=== PATIENT | male | born 1965 | race Hispanic/Latino ===

== ENCOUNTER 2017-01-01 18:35 | Inpatient (IN) | payer BC ==
[2017-01-01 20:01] LABS: Basophils % (Auto) 0.5 % (0.0-1.8); Eosinophils % (Auto) 0.3 % (0.0-4.3); Hematocrit 46.8 % (35.5-45.6); Hemoglobin 15.6 gm/dl (11.8-15.2); Mean Corpuscular HGB Conc 33 % (32-34); Mean Corpuscular Hemoglobin 30 pg (28-32); Mean Corpuscular Volume 91 fl (84-94); Platelet Count 231 K/mm3 (140-440); Red Blood Count 5.12 M/mm3 (3.65-5.03); Red Cell Distribution Width 13.2 % (13.2-15.2); White Blood Count 13.2 K/mm3 (4.5-11.0)
[2017-01-01] MEDS ORDERED: DUONEB 0.5 MG-3 MG/3 ML SOLN IH ONE (20:02)
[2017-01-01] MEDS ORDERED: PROVENTIL IH ONE ×2 (20:02→21:14)
--- NOTE | 2017-01-01 20:09 | XRay Report ---
FINAL REPORT PROCEDURE: XR CHEST ROUTINE 2V TECHNIQUE: PA and lateral chest radiographs were obtained. CPT 53546 HISTORY: shortness of breath COMPARISON: No prior studies are available for comparison. FINDINGS: Heart: Normal contour. Mediastinum/Vessels: Normal contour. Lungs/Pleural space: No infiltrate, effusion, or pneumothorax. Bony thorax: No acute osseous abnormality. Other: IMPRESSION: No pulmonary infiltrates are identified.
[2017-01-01 20:12] LABS: ISTAT Base Excess 0; ISTAT DEVICE 0; ISTAT HCO3 23.5; ISTAT PCO2 33.2 (35-45); ISTAT PH 7.457 (7.35-7.45); ISTAT PO2 57 (80-105); ISTAT SO2 91; ISTAT TCO2 24
[2017-01-01] MEDS ORDERED: TYLENOL ONE (20:12)
[2017-01-01] MEDS ORDERED: TYLENOL PO ONE (20:14)
[2017-01-01 20:21] LABS: Anion Gap 20 mmol/L; Blood Urea Nitrogen 14 mg/dL (9-20); Calcium 9.4 mg/dL (8.4-10.2); Carbon Dioxide 27 mmol/L (22-30); Glucose 96 mg/dL (75-100); Potassium 4.7 mmol/L (3.6-5.0); Sodium 136 mmol/L (137-145)
[2017-01-01] MEDS ORDERED: ATROVENT IH ONE (21:14)
--- NOTE | 2017-01-01 21:17 | Emergency Department Report ---
ED Shortness of Breath HPI - General Chief Complaint: Dyspnea/Respdistress Stated Complaint: FEVER/COUGH/BODYACHE Time Seen by Provider: 01/01/17 19:50 Source: patient Mode of arrival: Ambulatory Limitations: No Limitations - History of Present Illness Initial Comments: 51-year-old male with past medical history of COPD (not on home oxygen), hypertension, elevated cholesterol, history of pneumothorax in the past presents to the hospital complains of shortness of breath and fever 2 days. Generalized body aches rated 6/10 in intensity. Patient has cough productive of clear sputum. Tonight symptoms worsen with worsening shortness of breath, chills, and fever. Patient does not use home oxygen but he continues to smoke cigarettes. Patient states he did receive his flu shot. Positive continued wheezing. Denies history of intubations. His primary care doctor is Dr. Bazan - Related Data Home Medications Medication Instructions Recorded Confirmed Last Taken Celexa 0 mg PO DAILY 03/22/16 03/22/16 Unknown Lisinopril 20 mg PO DAILY 03/22/16 03/22/16 03/21/16 20 mg Simvastatin 40 mg PO QHS 03/22/16 03/22/16 03/21/16 40 Previous Rx's Medication Instructions Recorded Last Taken Type RX: Aspirin [Aspirin BABY CHEW TAB] 81 mg PO QDAY #30 tab.chew 03/24/16 Unknown Rx Allergies Allergy/AdvReac Type Severity Reaction Status Date / Time Sulfa (Sulfonamide Allergy Severe Rash Verified 03/22/16 18:34 Antibiotics) oxytetracycline Allergy Unknown Verified 03/22/16 10:32 [From Terramycin] oxytetracycline HCl Allergy Unknown Verified 03/22/16 10:32 [From Terramycin] Penicillins AdvReac Severe Shortness Verified 03/22/16 18:34 of Breath ED Review of Systems ROS: Stated complaint: FEVER/COUGH/BODYACHE Other details as noted in HPI Comment: All other systems reviewed and negative Other: Constitutional: As per HPI Eyes: No eye pain visual changes ENT: No ear pain or throat pain Neck: Denies pain Respiratory: as per hpi Cardiovascular: Denies chest pain, palpitations, syncope GI: Denies abdominal pain, nausea, vomiting, diarrhea : Denies dysuria, urinary frequency, or urgency Musculoskeletal: generalized body ache Skin: Denies rash, lesions, erythema Neurologic: Denies headache, numbness, weakness Psychiatric: Denies suicidal ideation, hallucinations ED Past Medical Hx - Past Medical History Previous Medical History?: Yes Hx Hypertension: Yes Hx Congestive Heart Failure: No Hx Diabetes: No Hx Asthma: No Hx COPD: Yes Additional medical history: high cholestrol, pneumonia - Surgical History Past Surgical History?: Yes Additional Surgical History: ACF surgery. collapsed right lung: chest tube placed - Social History Smoking Status: Current Every Day Smoker Substance Use Type: Alcohol - Medications Home Medications: Home Medications Medication Instructions Recorded Confirmed Last Taken Type Celexa 0 mg PO DAILY 03/22/16 03/22/16 Unknown History Lisinopril 20 mg PO DAILY 03/22/16 03/22/16 03/21/16 History 20 mg Simvastatin 40 mg PO QHS 03/22/16 03/22/16 03/21/16 History 40 RX: Aspirin [Aspirin BABY CHEW TAB] 81 mg PO QDAY #30 tab.chew 03/24/16 Unknown Rx ED Physical Exam - General Limitations: No Limitations - Other Other exam information: General: No limitations, patient is alert in no acute distress Head exam: Atraumatic, normocephalic Eyes exam: Normal appearance ENT: Moist mucous membrane, normal oropharynx Neck exam: Normal inspection, full range of motion Respiratory exam: Expiratory wheeze Cardiovascular: Normal rate and rhythm, normal heart sounds Abdomen: Soft, nondistended, and nontender, with normal bowel sounds, no rebound, or guarding Extremity: Full range of motion normal inspection no deformity Back: Normal Inspection, full range of motion, no tenderness Neurologic: Alert, oriented x3, cranial nerves intact, no motor or sensory deficit Psychiatric: normal affect, normal mood Skin: Warm, dry, intact ED Course Vital Signs 01/01/17 01/01/17 01/01/17 18:54 19:23 19:47 Temperature 101.5 F H 101.4 F H Pulse Rate 108 H 110 H Pulse Rate [ Posterior Bilateral Throughout] Respiratory 22 22 24 Rate Respiratory Rate [Posterior Bilateral Throughout] Blood Pressure 159/77 Blood Pressure 159/77 134/73 [Right] O2 Sat by Pulse 89 94 99 Oximetry 01/01/17 01/01/17 20:06 20:30 Temperature Pulse Rate Pulse Rate [ 113 H 111 H Posterior Bilateral Throughout] Respiratory Rate Respiratory 20 24 Rate [Posterior Bilateral Throughout] Blood Pressure Blood Pressure [Right] O2 Sat by Pulse Oximetry - Reevaluation(s) Reevaluation #1: 01/01/17 21:20 Patient received Tylenol, Solu-Medrol, and Indocin the ED with continued wheezing and hypoxia requiring supplemental oxygen ED Medical Decision Making - Lab Data Result diagrams: 01/01/17 19:52 01/01/17 19:52 Lab Results 01/01/17 01/01/17 01/01/17 Range/Units 19:52 19:52 20:04 WBC 13.2 H (4.5-11.0) K/mm3 RBC 5.12 H (3.65-5.03) M/mm3 Hgb 15.6 H (11.8-15.2) gm/dl Hct 46.8 H (35.5-45.6) % MCV 91 (84-94) fl MCH 30 (28-32) pg MCHC 33 (32-34) % RDW 13.2 (13.2-15.2) % Plt Count 231 (140-440) K/mm3 Lymph % (Auto) 4.0 L (13.4-35.0) % [place] % (Auto) 5.5 (0.0-7.3) % Eos % (Auto) 0.3 (0.0-4.3) % Baso % (Auto) 0.5 (0.0-1.8) % Lymph # 0.5 L (1.2-5.4) K/mm3 [place] # 0.7 (0.0-0.8) K/mm3 Eos # 0.0 (0.0-0.4) K/mm3 Baso # 0.1 (0.0-0.1) K/mm3 Seg Neutrophils % 89.7 H (40.0-70.0) % Seg Neutrophils # 11.9 H (1.8-7.7) K/mm3 POC ABG pH 7.457 H (7.35-7.45) POC ABG pCO2 33.2 L (35-45) POC ABG pO2 57 L (80-105) POC ABG HCO3 23.5 POC ABG Total CO2 24 POC ABG O2 Sat 91 POC ABG Base Excess 0 FiO2 32 % Sodium 136 L (137-145) mmol/L Potassium 4.7 (3.6-5.0) mmol/L Chloride 94.0 L (98-107) mmol/L Carbon Dioxide 27 (22-30) mmol/L Anion Gap 20 mmol/L BUN 14 (9-20) mg/dL Creatinine 1.0 (0.8-1.5) mg/dL Estimated GFR > 60 ml/min BUN/Creatinine Ratio 14.00 % Glucose 96 (75-100) mg/dL Calcium 9.4 (8.4-10.2) mg/dL flu neg - Radiology Data Radiology results: report reviewed (chest x-ray: No acute infiltrate) - Medical Decision Making ABG was performed on 2 L oxygen and shows a PO2 left and 60. Patient continues to have wheezing in the ED. Patient be admitted to the hospital for the treatment of acute bronchitis with fever. Azithromycin ordered - Differential Diagnosis pneumonia, bronchitis, influenza, viral syndrome, COPD Critical Care Time: No Critical care attestation.: If time is entered above; I have spent that time in minutes in the direct care of this critically ill patient, excluding procedure time. ED Disposition Clinical Impression: COPD with acute bronchitis, Hypoxia, Fever Disposition: OP ADMITTED IP TO THIS HOSP Is pt being admited?: Yes Condition: Stable Time of Disposition: 21:17 (Dr Millard/hosp)
[2017-01-01] MEDS ORDERED: ZITHROMAX 500 MG in NACL 0.9% 250ML 250 ML IV ONE (21:29)
[2017-01-01] MEDS ORDERED: MILK OF MAGNESIA PO PRN (21:59)
[2017-01-01] MEDS ORDERED: DULCOLAX PR PRN (21:59)
[2017-01-01] MEDS ORDERED: ZOFRAN IV PRN (21:59)
[2017-01-01] MEDS ORDERED: TYLENOL PO PRN (21:59)
[2017-01-01] MEDS ORDERED: NON-FORMULARY (Simvastatin 40 MG) PO SCH (22:00)
--- NOTE | 2017-01-01 22:08 | History and Physical Report ---
History of Present Illness Date of examination: 01/01/17 History of present illness: 51-year-old man with a history of COPD, on home oxygen, hypertension, hyperlipidemia [facility] with complaints of shortness of breath worsened today, cough productive of thick white phlegm, subjective fever and chills Patient denies chest pain, palpitation, abdominal pain, hematochezia, dysuria, frequency, focal weakness, dysarthria, fever chills, polydipsia polyuria, hot or cold intolerance, easy bruisability, or rash or bleeding from mucosal membrane, rhinorrhea, epistaxis, earache, tinnitus, blurry vision, eye discharge , anxiety, depression. Other review of systems negative PAST SURGICAL HISTORY: Neck surgery SOCIAL HISTORY: Smoked 3 packs a day, doing 3 beers a day, no drugs FAMILY HISTORY: Hypertension Medications and Allergies Allergies Allergy/AdvReac Type Severity Reaction Status Date / Time Sulfa (Sulfonamide Allergy Severe Rash Verified 03/22/16 18:34 Antibiotics) oxytetracycline Allergy Unknown Verified 03/22/16 10:32 [From Terramycin] oxytetracycline HCl Allergy Unknown Verified 03/22/16 10:32 [From Terramycin] Penicillins AdvReac Severe Shortness Verified 03/22/16 18:34 of Breath Home Medications Medication Instructions Recorded Confirmed Last Taken Type Celexa 0 mg PO DAILY 03/22/16 03/22/16 Unknown History Lisinopril 20 mg PO DAILY 03/22/16 03/22/16 03/21/16 History 20 mg Simvastatin 40 mg PO QHS 03/22/16 03/22/16 03/21/16 History 40 Aspirin [Aspirin BABY CHEW TAB] 81 mg PO QDAY #30 tab.chew 03/24/16 Unknown Rx Active Meds: Active Medications Aspirin (Baby Aspirin) 81 mg PO QDAY [facility] Azithromycin 500 mg/ Sodium (Chloride) 250 mls @ 250 mls/hr IV ONCE.ED ONE Stop: 01/01/17 22:28 Last Admin: 01/01/17 21:39 Dose: 250 mls/hr Miscellaneous Medication (Lisinopril) 20 mg PO DAILY VERÓNICA Miscellaneous Medication (Simvastatin) 40 mg PO QHS [facility] Exam - Physical Exam Narrative exam: Gen. appearance: Patient lying in bed, no apparent distress HEENT: Normocephalic, atraumatic, pupils equally round and reactive to light, extraocular movement intact, and no sclericterus,. No JVD or thyromegaly or nodule,neck supple, no carotid bruit ,mucous membranes moist, no exudate or erythema Heart: S1, S2, regular rate and rhythm Lungs: Wheezing bilaterally, breathing comfortable Abdomen: Positive bowel sounds, nontender, nondistended, no organomegaly Extremity: No edema, cyanosis, clubbing Skin: No rash, nodules, warm, dry Neuro: Oriented 3, cranial nerves II-12 intact, speech is fluent, motor and sensory intact - Constitutional Vitals: Temp Pulse Resp BP Pulse Ox 101.4 F H 106 H 20 116/55 88 01/01/17 19:23 01/01/17 21:30 01/01/17 21:30 01/01/17 21:30 01/01/17 21:30 Results - Labs CBC & Chem 7: 01/01/17 19:52 01/01/17 19:52 Labs: Abnormal lab results 01/01/17 01/01/17 01/01/17 Range/Units 19:52 19:52 20:04 WBC 13.2 H (4.5-11.0) K/mm3 RBC 5.12 H (3.65-5.03) M/mm3 Hgb 15.6 H (11.8-15.2) gm/dl Hct 46.8 H (35.5-45.6) % Lymph % (Auto) 4.0 L (13.4-35.0) % Lymph # 0.5 L (1.2-5.4) K/mm3 Seg Neutrophils % 89.7 H (40.0-70.0) % Seg Neutrophils # 11.9 H (1.8-7.7) K/mm3 POC ABG pH 7.457 H (7.35-7.45) POC ABG pCO2 33.2 L (35-45) POC ABG pO2 57 L (80-105) Sodium 136 L (137-145) mmol/L Chloride 94.0 L (98-107) mmol/L - Imaging and Cardiology EKG: image reviewed Chest x-ray: image reviewed Assessment and Plan COPD exacerbation with bronchitis Hypertension Hyperlipidemia Admits medicine Start high-dose IV steroids, antibiotics and nebulizer treatments Continue outpatient medications, start DVT prophylaxis
[2017-01-01] MEDS: ZOCOR PO SCH (23:35)
[2017-01-02] MEDS: DUONEB 0.5 MG-3 MG/3 ML SOLN IH SCH ×4 (02:55→19:18)
[2017-01-02 04:23] LABS: ISTAT Base Excess 1; ISTAT HCO3 25.6; ISTAT PCO2 41.7 (35-45); ISTAT PH 7.396 (7.35-7.45); ISTAT PO2 48 (80-105); ISTAT SO2 83; ISTAT TCO2 27
[2017-01-02 05:21] LABS: Hematocrit 44.7 % (35.5-45.6); Hemoglobin 14.8 gm/dl (11.8-15.2); Mean Corpuscular HGB Conc 33 % (32-34); Mean Corpuscular Hemoglobin 30 pg (28-32); Mean Corpuscular Volume 91 fl (84-94); Platelet Count 207 K/mm3 (140-440); Red Blood Count 4.92 M/mm3 (3.65-5.03); Red Cell Distribution Width 13.4 % (13.2-15.2); White Blood Count 11.5 K/mm3 (4.5-11.0)
[2017-01-02 05:26] LABS: Anion Gap 23 mmol/L; Blood Urea Nitrogen 15 mg/dL (9-20); Calcium 9.1 mg/dL (8.4-10.2); Carbon Dioxide 23 mmol/L (22-30); Chloride 93.7 mmol/L (98-107); Glucose 162 mg/dL (75-100); Potassium 4.2 mmol/L (3.6-5.0); Sodium 135 mmol/L (137-145)
[2017-01-02 06:55] LABS: Basophils % (Manual) 0 % (0.0-1.8); Blastocytes % (Manual) 0 %; Diff Status Complete; Eosinophils % (Manual) 0 % (0.0-4.3); RBC Morphology Normal
[2017-01-02] MEDS ORDERED: NON-FORMULARY (Lisinopril 20 MG) PO SCH (10:00)
[2017-01-02] MEDS: ZESTRIL PO SCH (10:04)
[2017-01-02] MEDS: LOVENOX SUB-Q SCH (10:05)
[2017-01-02] MEDS: celeXA PO SCH (10:05)
[2017-01-02] MEDS: BABY ASPIRIN PO SCH (10:05)
[2017-01-02] MEDS: LEVAQUIN PO SCH (10:05)
[2017-01-02] MEDS: BROVANA NEBU IH SCH ×2 (11:14→19:18)
[2017-01-02] MEDS: PULMICORT IH SCH ×2 (11:14→19:18)
[2017-01-02] MEDS: PERCOCET 5/325 PO PRN (11:36)
[2017-01-02] MEDS ORDERED: ULTRAM PO PRN (11:59)
[2017-01-02] MEDS: MUCINEX ER PO SCH ×2 (13:39→21:29)
--- NOTE | 2017-01-02 15:19 | Progress Note ---
Assessment and Plan Assessment and plan: 1. Acute on chronic hypoxic respiratory failure due to copd exacerbation- cotn nebulization treatments; cont IV steroids; add brovana and pulmicort; consult pulmonology; cont levaquin 2. Sepsis POA due to acute bronchitis- cotn levaquin; f/u blood c/s; wbc decreasing but may increase due to steroids; cont mucinex 3. Benign HTN- controlled- cotn meds 4. Dyslipidemia- cont statin 5. DVT prophylaxis-lovenox History Interval history: f/u copd; bronchtis Patient seen at the bedside; still having sob and wheezing but improving Hospitalist Physical - Constitutional Vitals: Temp Pulse Resp BP Pulse Ox 98.0 F 97 H 20 122/60 94 01/02/17 07:30 01/02/17 13:40 01/02/17 13:40 01/02/17 07:30 01/02/17 07:37 General appearance: Present: mild distress (on CN oxygen), well-nourished - EENT Eyes: Present: PERRL, EOM intact. Absent: scleral icterus, conjunctival injection ENT: hearing intact, clear oral mucosa, no oropharyngeal erythema, no poor dentition - Neck Neck: Present: supple, normal ROM. Absent: enlarged thyroid, masses or JVD - Respiratory Respiratory effort: normal Respiratory: bilateral: diminished, wheezing, negative: rales, rhonchi - Cardiovascular Rhythm: regular Heart Sounds: Present: S1 & S2. Absent: gallop - Extremities Extremities: no ischemia, pulses intact, pulses symmetrical, No edema Peripheral Pulses: within normal limits - Abdominal General gastrointestinal: soft, non-tender, non-distended, normal bowel sounds - Integumentary Integumentary: Present: clear - Psychiatric Psychiatric: appropriate mood/affect, cooperative - Neurologic Neurologic: CNII-XII intact, moves all extremities Results - Labs CBC & Chem 7: 01/02/17 04:25 01/02/17 04:25 Labs: Laboratory Last Values WBC 11.5 K/mm3 (4.5-11.0) H 01/02/17 04:25 RBC 4.92 M/mm3 (3.65-5.03) 01/02/17 04:25 Hgb 14.8 gm/dl (11.8-15.2) 01/02/17 04:25 Hct 44.7 % (35.5-45.6) 01/02/17 04:25 MCV 91 fl (84-94) 01/02/17 04:25 MCH 30 pg (28-32) 01/02/17 04:25 MCHC 33 % (32-34) 01/02/17 04:25 RDW 13.4 % (13.2-15.2) 01/02/17 04:25 Plt Count 207 K/mm3 (140-440) 01/02/17 04:25 Lymph % (Auto) 4.0 % (13.4-35.0) L 01/01/17 19:52 [place] % (Auto) 5.5 % (0.0-7.3) 01/01/17 19:52 Eos % (Auto) 0.3 % (0.0-4.3) 01/01/17 19:52 Baso % (Auto) 0.5 % (0.0-1.8) 01/01/17 19:52 Lymph # 0.5 K/mm3 (1.2-5.4) L 01/01/17 19:52 [place] # 0.7 K/mm3 (0.0-0.8) 01/01/17 19:52 Eos # 0.0 K/mm3 (0.0-0.4) 01/01/17 19:52 Baso # 0.1 K/mm3 (0.0-0.1) 01/01/17 19:52 Add Manual Diff Complete 01/02/17 04:25 Total Counted 100 01/02/17 04:25 Seg Neutrophils % [employer] Representative 01/02/17 04:25 Seg Neuts % (Manual) 94.0 % (40.0-70.0) H 01/02/17 04:25 Band Neutrophils % 0 % 01/02/17 04:25 Lymphocytes % (Manual) 5.0 % (13.4-35.0) L 01/02/17 04:25 Reactive Lymphs % (Man) 0 % 01/02/17 04:25 Monocytes % (Manual) 1.0 % (0.0-7.3) 01/02/17 04:25 Eosinophils % (Manual) 0 % (0.0-4.3) 01/02/17 04:25 Basophils % (Manual) 0 % (0.0-1.8) 01/02/17 04:25 Metamyelocytes % 0 % 01/02/17 04:25 Myelocytes % 0 % 01/02/17 04:25 Promyelocytes % 0 % 01/02/17 04:25 Blast Cells % 0 % 01/02/17 04:25 Nucleated RBC % Not Reportable 01/02/17 04:25 Seg Neutrophils # 11.9 K/mm3 (1.8-7.7) H 01/01/17 19:52 Seg Neutrophils # Man 10.8 K/mm3 (1.8-7.7) H 01/02/17 04:25 Band Neutrophils # 0.0 K/mm3 01/02/17 04:25 Lymphocytes # (Manual) 0.6 K/mm3 (1.2-5.4) L 01/02/17 04:25 Abs React Lymphs (Man) 0.0 K/mm3 01/02/17 04:25 Monocytes # (Manual) 0.1 K/mm3 (0.0-0.8) 01/02/17 04:25 Eosinophils # (Manual) 0.0 K/mm3 (0.0-0.4) 01/02/17 04:25 Basophils # (Manual) 0.0 K/mm3 (0.0-0.1) 01/02/17 04:25 Metamyelocytes # 0.0 K/mm3 01/02/17 04:25 Myelocytes # 0.0 K/mm3 01/02/17 04:25 Promyelocytes # 0.0 K/mm3 01/02/17 04:25 Blast Cells # 0.0 K/mm3 01/02/17 04:25 WBC Morphology Not Reportable 01/02/17 04:25 Hypersegmented Neuts Not Reportable 01/02/17 04:25 Hyposegmented Neuts Not Reportable 01/02/17 04:25 Hypogranular Neuts Not Reportable 01/02/17 04:25 Smudge Cells Not Reportable 01/02/17 04:25 Toxic Granulation Not Reportable 01/02/17 04:25 Toxic Vacuolation Not Reportable 01/02/17 04:25 Dohle Bodies Not Reportable 01/02/17 04:25 Pelger-Huet Anomaly Not Reportable 01/02/17 04:25 Andres Rods Not Reportable 01/02/17 04:25 Platelet Estimate Appears normal 01/02/17 04:25 Clumped Platelets Not Reportable 01/02/17 04:25 Plt Clumps, EDTA Not Reportable 01/02/17 04:25 Large Platelets Not Reportable 01/02/17 04:25 Giant Platelets Not Reportable 01/02/17 04:25 Platelet Satelliting Not Reportable 01/02/17 04:25 Plt Morphology Comment Not Reportable 01/02/17 04:25 RBC Morphology Normal 01/02/17 04:25 Dimorphic RBCs Not Reportable 01/02/17 04:25 Polychromasia Not Reportable 01/02/17 04:25 Hypochromasia Not Reportable 01/02/17 04:25 Poikilocytosis Not Reportable 01/02/17 04:25 Anisocytosis Not Reportable 01/02/17 04:25 Microcytosis Not Reportable 01/02/17 04:25 Macrocytosis Not Reportable 01/02/17 04:25 Spherocytes Not Reportable 01/02/17 04:25 Pappenheimer Bodies Not Reportable 01/02/17 04:25 Sickle Cells Not Reportable 01/02/17 04:25 Target Cells Not Reportable 01/02/17 04:25 Tear Drop Cells Not Reportable 01/02/17 04:25 Ovalocytes Not Reportable 01/02/17 04:25 Helmet Cells Not Reportable 01/02/17 04:25 [place] Bodies Not Reportable 01/02/17 04:25 [place] Rings Not Reportable 01/02/17 04:25 [place] Cells Not Reportable 01/02/17 04:25 Bite Cells Not Reportable 01/02/17 04:25 Crenated Cell Not Reportable 01/02/17 04:25 Elliptocytes Not Reportable 01/02/17 04:25 Acanthocytes (Spur) Not Reportable 01/02/17 04:25 Rouleaux Not Reportable 01/02/17 04:25 Hemoglobin C Crystals Not Reportable 01/02/17 04:25 Schistocytes Not Reportable 01/02/17 04:25 Malaria parasites Not Reportable 01/02/17 04:25 Toni Bodies Not Reportable 01/02/17 04:25 Hem Pathologist Commnt No 01/02/17 04:25 POC ABG pH 7.396 (7.35-7.45) 01/02/17 04:00 POC ABG pCO2 41.7 (35-45) 01/02/17 04:00 POC ABG pO2 48 (80-105) L 01/02/17 04:00 POC ABG HCO3 25.6 01/02/17 04:00 POC ABG Total CO2 27 01/02/17 04:00 POC ABG O2 Sat 83 01/02/17 04:00 POC ABG Base Excess 1 01/02/17 04:00 FiO2 28 % 01/02/17 04:00 Sodium 135 mmol/L (137-145) L 01/02/17 04:25 Potassium 4.2 mmol/L (3.6-5.0) 01/02/17 04:25 Chloride 93.7 mmol/L (98-107) L 01/02/17 04:25 Carbon Dioxide 23 mmol/L (22-30) 01/02/17 04:25 Anion Gap 23 mmol/L 01/02/17 04:25 BUN 15 mg/dL (9-20) 01/02/17 04:25 Creatinine 1.0 mg/dL (0.8-1.5) 01/02/17 04:25 Estimated GFR > 60 ml/min 01/02/17 04:25 BUN/Creatinine Ratio 15.00 % 01/02/17 04:25 Glucose 162 mg/dL (75-100) H 01/02/17 04:25 Calcium 9.1 mg/dL (8.4-10.2) 01/02/17 04:25 - Imaging and Cardiology Chest x-ray: report reviewed (no infiltrates)
[2017-01-02] MEDS ORDERED: PROVENTIL IH PRN (19:54)
[2017-01-02] MEDS: ZOCOR PO SCH (21:29)
--- NOTE | 2017-01-02 23:30 | Consultation ---
History of Present Illness Consult date: 01/02/17 Reason for consult: dyspnea, cough, COPD, hypoxemia History of present illness: This is 51 year old male admitted through the emergency room from [facility] with a complaint of shortness of breath and cough with productive white sputum and fever. Patient complained pleuritic chest pain with cough. Patient has history of COPD . Patient also has history of hypertension and hyperlipidemia.Patient has history of smoking.2 packs a day for 30 years.Patient still smoking. Counselled him to stop smoking.No history of drug abuse.Drinks beer at times. Allergic to sulfa and oxytetracycline and pencillins. 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 O2 satuaration 94% .Patient started on albuterol/atrovent aerosol treatments and solumedral and Levaquine. Obtaining Angio CT of chest. Past History Past Medical History: COPD, hypertension, hyperlipidemia Social history: smoking. denies: alcohol abuse, prescription drug abuse, IV drug use Medications and Allergies Allergies Allergy/AdvReac Type Severity Reaction Status Date / Time Sulfa (Sulfonamide Allergy Severe Rash Verified 03/22/16 18:34 Antibiotics) oxytetracycline Allergy Unknown Verified 03/22/16 10:32 [From Terramycin] oxytetracycline HCl Allergy Unknown Verified 03/22/16 10:32 [From Terramycin] Penicillins AdvReac Severe Shortness Verified 03/22/16 18:34 of Breath Home Medications Medication Instructions Recorded Confirmed Last Taken Type Lisinopril 20 mg PO DAILY 03/22/16 01/01/17 03/21/16 History 20 mg Citalopram [celeXA] 20 mg PO QDAY 01/01/17 01/01/17 Unknown History Fluticasone/Salmeterol [Advair 1 puff IH DAILY 01/01/17 01/01/17 Unknown History Diskus 250-50 mcg] Pravastatin Sodium [Pravastatin] 10 mg PO QHS 01/01/17 01/01/17 Unknown History Active Meds: Active Medications Acetaminophen (Tylenol) 650 mg PO Q4H PRN PRN Reason: Pain MILD(1-3)/Fever >100.5/ROMANO Albuterol (Proventil) 2.5 mg IH Q4HRT PRN PRN Reason: Shortness Of Breath Albuterol/Ipratropium (Duoneb 0.5 Mg-3 Mg/3 Ml Soln) 1 ampul IH Q6HRT [facility] Last Admin: 01/02/17 19:18 Dose: 1 ampul Arformoterol Tartrate (Brovana Nebu) 15 mcg IH Q12HRT [facility] Last Admin: 01/02/17 19:18 Dose: Not Given Aspirin (Baby Aspirin) 81 mg PO QDAY [facility] Last Admin: 01/02/17 10:05 Dose: 81 mg Bisacodyl (Dulcolax) 10 mg WI QDAY PRN PRN Reason: Constipation unrelieved by MOM Budesonide (Pulmicort) 0.5 mg IH Q12HRT [facility] Last Admin: 01/02/17 19:18 Dose: 0.5 mg Citalopram Hydrobromide (Celexa) 20 mg PO QDAY [facility] Last Admin: 01/02/17 10:05 Dose: 20 mg Enoxaparin Sodium (Lovenox) 40 mg SUB-Q QDAY [facility] Last Admin: 01/02/17 10:05 Dose: 40 mg Guaifenesin (Mucinex Er) 600 mg PO BID [facility] Last Admin: 01/02/17 21:29 Dose: 600 mg Levofloxacin (Levaquin) 500 mg PO Q24HR [facility] Last Admin: 01/02/17 10:05 Dose: 500 mg Lisinopril (Zestril) 20 mg PO QDAY [facility] Last Admin: 01/02/17 10:04 Dose: 20 mg Magnesium Hydroxide (Milk Of Magnesia) 30 ml PO Q4H PRN PRN Reason: Constipation Methylprednisolone Sodium Succinate (Solu-Medrol) 125 mg IV Q6H [facility] Last Admin: 01/02/17 21:29 Dose: 125 mg Ondansetron HCl (Zofran) 4 mg IV Q8H PRN PRN Reason: N/V unrelieved by Reglan Oxycodone/Acetaminophen (Percocet 5/325) 1 tab PO Q6H PRN PRN Reason: Pain, Moderate (4-6) Last Admin: 01/02/17 11:36 Dose: 1 tab Simvastatin (Zocor) 40 mg PO QHS [facility] Last Admin: 01/02/17 21:29 Dose: 40 mg Tramadol HCl (Ultram) 50 mg PO Q4H PRN PRN Reason: Pain, Moderate (4-6) Review of Systems All systems: negative Constitutional: fever Physical Examination Vital signs: Vital Signs Temp Pulse Resp BP Pulse Ox 101.5 F H 108 H 22 159/77 89 01/01/17 18:54 01/01/17 18:54 01/01/17 18:54 01/01/17 18:54 01/01/17 18:54 General appearance: no acute distress, asleep Eyes: non-icteric ENT: oropharynx moist Neck: supple, no JVD Ascultation: Bilateral: wheezes, rales Cardiovascular: regular rate and rhythm Gastrointestinal: normoactive bowel sounds, soft, non-tender Integumentary: normal Extremities: no cyanosis, no edema Musculoskeletal: no deformities Gait: other (Can not assess now.) non-focal exam, pupils equal and round, CN II-XII normal other (Patient sleeping at this time) Results - Laboratory Findings CBC and BMP: 01/03/17 04:43 01/02/17 04:25 ABG POC ABG pH 7.396 (7.35-7.45) 01/02/17 04:00 POC ABG pCO2 41.7 (35-45) 01/02/17 04:00 POC ABG pO2 48 (80-105) L 01/02/17 04:00 POC ABG HCO3 25.6 01/02/17 04:00 POC ABG Total CO2 27 01/02/17 04:00 POC ABG O2 Sat 83 01/02/17 04:00 Abnormal lab findings: Abnormal Labs 01/02/17 01/02/17 01/02/17 04:00 04:25 04:25 WBC 11.5 H Seg Neuts % (Manual) 94.0 H Lymphocytes % (Manual) 5.0 L Seg Neutrophils # Man 10.8 H Lymphocytes # (Manual) 0.6 L POC ABG pO2 48 L Sodium 135 L Chloride 93.7 L Glucose 162 H - Diagnostic Findings Chest x-ray: report reviewed (No pulmonary infiltrates.), image reviewed Assessment and Plan This is 51 year old male admitted through the emergency room from [facility] with a complaint of shortness of breath and cough with productive white sputum and fever. Patient complained pleuritic chest pain with cough. Patient has history of COPD . Patient also has history of hypertension and hyperlipidemia.Patient has history of smoking.2 packs a day for 30 years.Patient still smoking. Counselled him to stop smoking.No history of drug abuse.Drinks beer at times. Allergic to sulfa and oxytetracycline and pencillins. 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 O2 satuaration 94% .Patient started on albuterol/atrovent aerosol treatments and solumedral and Levaquine. Obtaining Angio CT of chest. - Patient Problems (1) COPD with acute bronchitis Current Visit: Yes Status: Acute Plan to address problem: O2 supplementation. Albuterol/atrovent aerosol treatments q 6 hours. Continue I/V solumedral recommend to change Levaquine to I/V Continue S/C Lovenox Recommend famotadine or protonix. (2) Hypoxia Current Visit: Yes Status: Acute Plan to address problem: O2 supplementation Obtain Angio CT of chest. (3) Hypertension Current Visit: No Status: Acute Qualifiers: Hypertension type: H Plan to address problem: Management as per primary care. (4) Obesity (BMI 30-39.9) Current Visit: Yes Status: Acute Plan to address problem: Diet and exercise. Recommend to consult orchid grower for weight reduction diet. (5) Sleep apnea, obstructive Current Visit: Yes Status: Acute Plan to address problem: Recommend sleep study as outpatient.
[2017-01-03] MEDS: DUONEB 0.5 MG-3 MG/3 ML SOLN IH SCH ×4 (01:29→20:11)
[2017-01-03 05:30] LABS: Hematocrit 43.4 % (35.5-45.6); Hemoglobin 14.1 gm/dl (11.8-15.2); Mean Corpuscular HGB Conc 33 % (32-34); Mean Corpuscular Hemoglobin 30 pg (28-32); Mean Corpuscular Volume 92 fl (84-94); Platelet Count 224 K/mm3 (140-440); Red Blood Count 4.72 M/mm3 (3.65-5.03); Red Cell Distribution Width 13.3 % (13.2-15.2)
[2017-01-03 05:39] LABS: White Blood Count 25.2 K/mm3 (4.5-11.0)
[2017-01-03 07:02] LABS: Basophils % (Manual) 0 % (0.0-1.8); Blastocytes % (Manual) 0 %; Diff Status Complete; Eosinophils % (Manual) 0 % (0.0-4.3); RBC Morphology Normal; Total Cells Counted Percent 1.5
[2017-01-03] MEDS: PULMICORT IH SCH ×2 (08:04→20:20)
[2017-01-03] MEDS: BROVANA NEBU IH SCH ×2 (08:04→20:13)
[2017-01-03] MEDS ORDERED: NACL ONE (09:12)
--- NOTE | 2017-01-03 11:29 | Admit Criteria Form ---
Admission Criteria Documentation: COPD Clinical Indications for Admission to Inpatient Care (Place 'X' for any and all applicable criteria): Admission is indicated for ANY ONE of the following (1)(2)(3): [X]I. Acute exacerbation by high-risk comorbidity (e.g., pneumonia, dysrhythmia, heart failure, pleural effusion, pneumothorax) or severe underlying COPD (e.g., steroid dependent) [X]II. Inpatient admission required rather than observation care (see Chronic Obstructive Pulmonary Disease: Observation Care) because of ANY ONE of the following: [X]a) New or pre-existing signs or symptoms of COPD (eg, dyspnea or Tachypnea at rest or with minimal activity) that persist despite outpatient and observation care treatment [X]b) New-onset hypoxemia (room air SaO2 less than 90%, PO2 less than 60 mm Hg (8.0 kPa)) that persists despite outpatient and observation care treatment [ ]c) Worsening of pre-existing hypoxemia (eg, new or increased requirement for supplemental oxygen to maintain oxygenation at baseline level) that persists despite outpatient and observation care treatment, with oxygen treatment needs performable only in acute inpatient setting [ ]d) Hypercarbia (PCO2 greater than 40 mm Hg (5.3 kPa))-induced respiratory acidosis (pH less than 7.35) that persists despite outpatient and observation care treatment [X]e) Supplemental oxygen or respiratory treatments for over 24 hours that are performable only in acute inpatient setting [ ]f) Chest tube placement with active evacuation (e.g., suction, drainage) (5) [ ]g) Other condition, treatment or monitoring requiring inpatient admission [ ]III. Planned invasive surgical or diagnostic procedures requiring acute- care hospitalization [ ]IV. Acute respiratory failure (e.g., uncompensated hypercarbia, severe hypoxemia) [ ]V. Severe comorbid condition (e.g., severe steroid myopathy, acute vertebral fracture) that has acutely worsened pulmonary function [ ]. Confusion state, lethargy, obtundation, stupor or coma Extended stay beyond goal length of stay may be needed for (31)(32): [ ]a ) Respiratory Failure. [ ]b) Severe or persisting hypoxemia or hypercarbia [ ]c) Severe or persistent dyspnea [ ]d) Comorbidities (e.g. chronic heart failure, atrial fibrillation with rapid response, pneumonia) [ ]e) Malnutrition The original [facility] content created by [facility] has been revised. The portions of the content which have been revised are identified through the use of italic text or in bold, and [facility] has neither reviewed nor approved the modified material. All other unmodified content is copyright [facility]. Please see references footnoted in the original [facility] edition 2016 Admission Criteria Met: Yes
--- NOTE | 2017-01-03 12:07 | Cat Scan Report ---
CTA CHEST INDICATION: Hypoxemia, shortness of breath. COMPARISON: 03/23/2016 FINDINGS: Chest CTA performed following intravenous administration of 100 cc of Omnipaque 350. Rotational MIP's also obtained. Stable, normal heart size. Unremarkable great vessels. No effusions or new size significant adenopathy with stable hilar lymphoid soft tissue appearance. Normal size thyroid. Patent central airway with slight right upper lobe bronchial wall thickening suggested, axial series 2, images 84-104, amongst others. Interval resolution of further distal previously noted right upper lobe infiltrate. However, new groundglass infiltrates now noted in the left upper lobe, marginating the major fissure as also identified left paramediastinal as on image 116, series 2, amongst others. Mild right lower lobe scarring peripherally again noted. Interval resolution of left lower lobe atelectasis. Emphysematous changes in both upper lobes again noted with slight mosaic attenuation and few peripheral bullae measuring up to 2 cm on the left, axial image 48, series 2. Nonspecific distal esophageal wall thickening, not excluded for gastroesophageal reflux and/or hiatal hernia, amongst others. Imaged upper abdomen demonstrates slight diffuse bilateral adrenal soft tissue prominence/possibly adenomatous hyperplasia. Mild degenerative changes along the imaged spine, including partially imaged lower cervical fusion hardware again noted. CONCLUSION: 1. Interval resolution of right upper lobe pneumonia, though its mild central bronchial wall thickening suspected, as described. 2. New left upper lobe groundglass pneumonias also now identified. 3. Various other incidental findings, including stable predominantly bilateral upper lobe emphysematous changes, amongst others, as described. Thank you for the opportunity to participate in this patient's care.
[2017-01-03] MEDS: celeXA PO SCH (14:05)
[2017-01-03] MEDS: BABY ASPIRIN PO SCH (14:05)
[2017-01-03] MEDS: MUCINEX ER PO SCH ×2 (14:05→21:58)
[2017-01-03] MEDS: ZESTRIL PO SCH (14:05)
[2017-01-03] MEDS: LEVAQUIN PO SCH (14:05)
[2017-01-03] MEDS: LOVENOX SUB-Q SCH (14:06)
--- NOTE | 2017-01-03 14:26 | Progress Note ---
Assessment and Plan This is 51 year old male admitted through the emergency room from [facility] with a complaint of shortness of breath and cough with productive white sputum and fever. Patient complained pleuritic chest pain with cough. Patient has history of COPD . Patient also has history of hypertension and hyperlipidemia.Patient has history of smoking.2 packs a day for 30 years.Patient still smoking. Counselled him to stop smoking.No history of drug abuse.Drinks beer at times. Allergic to sulfa and oxytetracycline and pencillins. 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 O2 satuaration 94% .Patient started on albuterol/atrovent aerosol treatments and solumedral and Levaquine. Obtaining Angio CT of chest. Angio CT of chest reported No PE. New ground glass infiltrate left upper lobe. . Patient complained fever and has leukocytosis. Switching PO levaquine to I/V Levaquine. - Patient Problems (1) COPD with acute bronchitis Current Visit: Yes Status: Acute Plan to address problem: O2 supplementation. Albuterol/atrovent aerosol treatments q 6 hours. Continue I/V solumedral recommend to change Levaquine to I/V Continue S/C Lovenox Recommend famotadine or protonix. (2) Hypoxia Current Visit: Yes Status: Acute Plan to address problem: O2 supplementation Angio CT of chest reported no PE. (3) Hypertension Current Visit: No Status: Acute Qualifiers: Hypertension type: H Plan to address problem: Management as per primary care. (4) Obesity (BMI 30-39.9) Current Visit: Yes Status: Acute Plan to address problem: Diet and exercise. Recommend to consult commissioning editor for weight reduction diet. (5) Sleep apnea, obstructive Current Visit: Yes Status: Acute Plan to address problem: Recommend sleep study as outpatient. Subjective Date of service: 01/03/17 Interval history: Patient alert,awake. Mild shortness of breath at rest. Patient is on 3 litres O2. O2 satuaration 97%. Patient has Angio CT of chest reported no PE. Reported new ground glass infiltrate left upper lobe. Patient came in with fever. Patient has Leukocytosis. Switching PO Levaquine to I/V. Objective Vital Signs - 12hr 01/03/17 01/03/17 01/03/17 03:00 05:22 07:45 Temperature 97.6 F 98.2 F Pulse Rate 90 Pulse Rate [ Anterior Bilateral Throughout] Pulse Rate [ 98 H 90 Left Radial] Respiratory 18 20 Rate Respiratory Rate [Anterior Bilateral Throughout] Blood Pressure 110/54 126/65 [Left Arm] O2 Sat by Pulse 18 L 93 Oximetry 01/03/17 01/03/17 01/03/17 08:04 08:05 08:30 Temperature Pulse Rate Pulse Rate [ 87 80 Anterior Bilateral Throughout] Pulse Rate [ Left Radial] Respiratory Rate Respiratory 18 18 Rate [Anterior Bilateral Throughout] Blood Pressure [Left Arm] O2 Sat by Pulse 97 Oximetry 01/03/17 01/03/17 12:30 13:42 Temperature Pulse Rate 83 Pulse Rate [ 82 Anterior Bilateral Throughout] Pulse Rate [ Left Radial] Respiratory Rate Respiratory 18 Rate [Anterior Bilateral Throughout] Blood Pressure [Left Arm] O2 Sat by Pulse Oximetry Constitutional: no acute distress, asleep Eyes: non-icteric ENT: oropharynx moist Neck: supple, no JVD Ascultation: Bilateral: wheezes, rales Cardiovascular: regular rate and rhythm Gastrointestinal: normoactive bowel sounds, soft, non-tender Integumentary: normal Extremities: no cyanosis, no edema Neurologic: non-focal exam, pupils equal and round, CN II-XII normal Psychiatric: other (Patient sleeping at this time) CBC and BMP: 01/03/17 04:43 01/02/17 04:25 ABG, PT/INR, D-dimer: ABG POC ABG pH 7.396 (7.35-7.45) 01/02/17 04:00 POC ABG pCO2 41.7 (35-45) 01/02/17 04:00 POC ABG pO2 48 (80-105) L 01/02/17 04:00 POC ABG HCO3 25.6 01/02/17 04:00 POC ABG Total CO2 27 01/02/17 04:00 POC ABG O2 Sat 83 01/02/17 04:00 Abnormal lab findings: Abnormal Labs 01/02/17 01/02/17 01/02/17 04:00 04:25 04:25 WBC 11.5 H Seg Neuts % (Manual) 94.0 H Lymphocytes % (Manual) 5.0 L Seg Neutrophils # Man 10.8 H Lymphocytes # (Manual) 0.6 L POC ABG pO2 48 L Sodium 135 L Chloride 93.7 L Glucose 162 H 01/03/17 04:43 WBC 25.2 H Seg Neuts % (Manual) 93.5 H Lymphocytes % (Manual) 2.0 L Seg Neutrophils # Man 23.6 H Lymphocytes # (Manual) 0.5 L POC ABG pO2 Sodium Chloride Glucose CT scan - chest: report reviewed (No pulmonary emboli. Ground glass infiltrate left upper lobe.), image reviewed
--- NOTE | 2017-01-03 15:21 | Progress Note ---
Assessment and Plan Assessment and plan: 1. Acute on chronic hypoxic respiratory failure due to copd exacerbation- cotn nebulization treatments; cont IV steroids; add brovana and pulmicort; follow up from pulmonology noted; cont levaquin 2. Sepsis POA due to acute bronchitis / pneumonia- cotn levaquin; f/u blood c/s ; wbc increasing most likely secondary to steroids; cont mucinex 3. Benign HTN- controlled- cotn meds 4. Dyslipidemia- cont statin 5. DVT prophylaxis-lovenox History Interval history: f/u copd; bronchtis Patient seen at the bedside; still having sob and wheezing Hospitalist Physical - Constitutional Vitals: Temp Pulse Resp BP Pulse Ox 98.2 F 82 18 126/65 97 01/03/17 07:45 01/03/17 13:42 01/03/17 13:42 01/03/17 07:45 01/03/17 08:05 General appearance: Present: mild distress (not wearing nasal cannula oxygen), well-nourished - EENT Eyes: Present: PERRL, EOM intact. Absent: scleral icterus, conjunctival injection ENT: hearing intact, no oropharyngeal erythema, no poor dentition - Neck Neck: Present: supple, normal ROM. Absent: enlarged thyroid, masses or JVD - Respiratory Respiratory effort: other (tachypneic) Respiratory: bilateral: diminished, wheezing, negative: rales, rhonchi - Cardiovascular Rhythm: regular Heart Sounds: Present: S1 & S2. Absent: gallop - Extremities Extremities: no ischemia, pulses intact, pulses symmetrical, No edema, normal temperature Peripheral Pulses: within normal limits - Abdominal General gastrointestinal: soft, non-tender, non-distended, normal bowel sounds - Integumentary Integumentary: Present: clear - Psychiatric Psychiatric: appropriate mood/affect, intact judgment & insight - Neurologic Neurologic: CNII-XII intact, moves all extremities Results - Labs CBC & Chem 7: 01/03/17 04:43 01/02/17 04:25 Labs: Laboratory Last Values WBC 25.2 K/mm3 (4.5-11.0) H 01/03/17 04:43 RBC 4.72 M/mm3 (3.65-5.03) 01/03/17 04:43 Hgb 14.1 gm/dl (11.8-15.2) 01/03/17 04:43 Hct 43.4 % (35.5-45.6) 01/03/17 04:43 MCV 92 fl (84-94) 01/03/17 04:43 MCH 30 pg (28-32) 01/03/17 04:43 MCHC 33 % (32-34) 01/03/17 04:43 RDW 13.3 % (13.2-15.2) 01/03/17 04:43 Plt Count 224 K/mm3 (140-440) 01/03/17 04:43 Lymph % (Auto) 4.0 % (13.4-35.0) L 01/01/17 19:52 Geary % (Auto) 5.5 % (0.0-7.3) 01/01/17 19:52 Eos % (Auto) 0.3 % (0.0-4.3) 01/01/17 19:52 Baso % (Auto) 0.5 % (0.0-1.8) 01/01/17 19:52 Lymph # 0.5 K/mm3 (1.2-5.4) L 01/01/17 19:52 Geary # 0.7 K/mm3 (0.0-0.8) 01/01/17 19:52 Eos # 0.0 K/mm3 (0.0-0.4) 01/01/17 19:52 Baso # 0.1 K/mm3 (0.0-0.1) 01/01/17 19:52 Add Manual Diff Complete 01/03/17 04:43 Total Counted 200 01/03/17 04:43 Seg Neutrophils % Stock Parts Inspector 01/03/17 04:43 Seg Neuts % (Manual) 93.5 % (40.0-70.0) H 01/03/17 04:43 Band Neutrophils % 3.0 % 01/03/17 04:43 Lymphocytes % (Manual) 2.0 % (13.4-35.0) L 01/03/17 04:43 Reactive Lymphs % (Man) 0 % 01/03/17 04:43 Monocytes % (Manual) 1.5 % (0.0-7.3) 01/03/17 04:43 Eosinophils % (Manual) 0 % (0.0-4.3) 01/03/17 04:43 Basophils % (Manual) 0 % (0.0-1.8) 01/03/17 04:43 Metamyelocytes % 0 % 01/03/17 04:43 Myelocytes % 0 % 01/03/17 04:43 Promyelocytes % 0 % 01/03/17 04:43 Blast Cells % 0 % 01/03/17 04:43 Nucleated RBC % Not Reportable 01/03/17 04:43 Seg Neutrophils # 11.9 K/mm3 (1.8-7.7) H 01/01/17 19:52 Seg Neutrophils # Man 23.6 K/mm3 (1.8-7.7) H 01/03/17 04:43 Band Neutrophils # 0.8 K/mm3 01/03/17 04:43 Lymphocytes # (Manual) 0.5 K/mm3 (1.2-5.4) L 01/03/17 04:43 Abs React Lymphs (Man) 0.0 K/mm3 01/03/17 04:43 Monocytes # (Manual) 0.4 K/mm3 (0.0-0.8) 01/03/17 04:43 Eosinophils # (Manual) 0.0 K/mm3 (0.0-0.4) 01/03/17 04:43 Basophils # (Manual) 0.0 K/mm3 (0.0-0.1) 01/03/17 04:43 Metamyelocytes # 0.0 K/mm3 01/03/17 04:43 Myelocytes # 0.0 K/mm3 01/03/17 04:43 Promyelocytes # 0.0 K/mm3 01/03/17 04:43 Blast Cells # 0.0 K/mm3 01/03/17 04:43 WBC Morphology Not Reportable 01/03/17 04:43 Hypersegmented Neuts Not Reportable 01/03/17 04:43 Hyposegmented Neuts Not Reportable 01/03/17 04:43 Hypogranular Neuts Not Reportable 01/03/17 04:43 Smudge Cells Not Reportable 01/03/17 04:43 Toxic Granulation Not Reportable 01/03/17 04:43 Toxic Vacuolation Not Reportable 01/03/17 04:43 Dohle Bodies Not Reportable 01/03/17 04:43 Pelger-Huet Anomaly Not Reportable 01/03/17 04:43 Adnres Rods Not Reportable 01/03/17 04:43 Platelet Estimate Appears normal 01/03/17 04:43 Clumped Platelets Not Reportable 01/03/17 04:43 Plt Clumps, EDTA Not Reportable 01/03/17 04:43 Large Platelets Not Reportable 01/03/17 04:43 Giant Platelets Not Reportable 01/03/17 04:43 Platelet Satelliting Not Reportable 01/03/17 04:43 Plt Morphology Comment Not Reportable 01/03/17 04:43 RBC Morphology Normal 01/03/17 04:43 Dimorphic RBCs Not Reportable 01/03/17 04:43 Polychromasia Not Reportable 01/03/17 04:43 Hypochromasia Not Reportable 01/03/17 04:43 Poikilocytosis Not Reportable 01/03/17 04:43 Anisocytosis Not Reportable 01/03/17 04:43 Microcytosis Not Reportable 01/03/17 04:43 Macrocytosis Not Reportable 01/03/17 04:43 Spherocytes Not Reportable 01/03/17 04:43 Pappenheimer Bodies Not Reportable 01/03/17 04:43 Sickle Cells Not Reportable 01/03/17 04:43 Target Cells Not Reportable 01/03/17 04:43 Tear Drop Cells Not Reportable 01/03/17 04:43 Ovalocytes Not Reportable 01/03/17 04:43 Helmet Cells Not Reportable 01/03/17 04:43 V[place] Bodies Not Reportable 01/03/17 04:43 [place] Rings Not Reportable 01/03/17 04:43 Odum Cells Not Reportable 01/03/17 04:43 Bite Cells Not Reportable 01/03/17 04:43 Crenated Cell Not Reportable 01/03/17 04:43 Elliptocytes Not Reportable 01/03/17 04:43 Acanthocytes (Spur) Not Reportable 01/03/17 04:43 Rouleaux Not Reportable 01/03/17 04:43 Hemoglobin C Crystals Not Reportable 01/03/17 04:43 Schistocytes Not Reportable 01/03/17 04:43 Malaria parasites Not Reportable 01/03/17 04:43 Toni Bodies Not Reportable 01/03/17 04:43 Hem Pathologist Commnt No 01/03/17 04:43 POC ABG pH 7.396 (7.35-7.45) 01/02/17 04:00 POC ABG pCO2 41.7 (35-45) 01/02/17 04:00 POC ABG pO2 48 (80-105) L 01/02/17 04:00 POC ABG HCO3 25.6 01/02/17 04:00 POC ABG Total CO2 27 01/02/17 04:00 POC ABG O2 Sat 83 01/02/17 04:00 POC ABG Base Excess 1 01/02/17 04:00 FiO2 28 % 01/02/17 04:00 Sodium 135 mmol/L (137-145) L 01/02/17 04:25 Potassium 4.2 mmol/L (3.6-5.0) 01/02/17 04:25 Chloride 93.7 mmol/L (98-107) L 01/02/17 04:25 Carbon Dioxide 23 mmol/L (22-30) 01/02/17 04:25 Anion Gap 23 mmol/L 01/02/17 04:25 BUN 15 mg/dL (9-20) 01/02/17 04:25 Creatinine 1.0 mg/dL (0.8-1.5) 01/02/17 04:25 Estimated GFR > 60 ml/min 01/02/17 04:25 BUN/Creatinine Ratio 15.00 % 01/02/17 04:25 Glucose 162 mg/dL (75-100) H 01/02/17 04:25 Calcium 9.1 mg/dL (8.4-10.2) 01/02/17 04:25 CTA of the chest-interval resolution of right upper lobe pneumonia though its mild central bronchial wall thickening suspected. Left upper lobe groundglass pneumonia is also no identified. Bilateral upper lobe emphysema Microbiology 01/01/17 20:05 Peripheral/Venous Blood Culture - Preliminary NO GROWTH AFTER 24 HOURS 01/01/17 20:05 Peripheral/Venous Blood Culture - Preliminary NO GROWTH AFTER 24 HOURS 01/01/17 20:04 Nasopharyngeal Swab Influenza Types A,B Antigen (CARMELLA) - Final
[2017-01-03] MEDS: ZOCOR PO SCH (21:58)
[2017-01-04] MEDS: DUONEB 0.5 MG-3 MG/3 ML SOLN IH SCH ×4 (02:08→20:16)
[2017-01-04 07:15] LABS: Hemoglobin 14.8 gm/dl (11.8-15.2); Mean Corpuscular HGB Conc 33 % (32-34); Mean Corpuscular Hemoglobin 30 pg (28-32); Mean Corpuscular Volume 92 fl (84-94); Platelet Count 246 K/mm3 (140-440); Red Blood Count 4.89 M/mm3 (3.65-5.03); Red Cell Distribution Width 13.7 % (13.2-15.2)
[2017-01-04 07:16] LABS: White Blood Count 23.9 K/mm3 (4.5-11.0)
[2017-01-04] MEDS: BROVANA NEBU IH SCH ×2 (07:31→20:11)
[2017-01-04] MEDS: PULMICORT IH SCH ×2 (07:31→20:11)
[2017-01-04 08:01] LABS: Blastocytes % (Manual) 0 %; Diff Status Complete; Eosinophils % (Manual) 0 % (0.0-4.3); RBC Morphology Normal
[2017-01-04 08:11] LABS: Anion Gap 22 mmol/L; Blood Urea Nitrogen 20 mg/dL (9-20); Calcium 8.8 mg/dL (8.4-10.2); Carbon Dioxide 26 mmol/L (22-30); Chloride 100.7 mmol/L (98-107); Glucose 128 mg/dL (75-100); Potassium 5.2 mmol/L (3.6-5.0); Sodium 143 mmol/L (137-145)
[2017-01-04] MEDS: LEVAQUIN 750MG/150ML 750 MG/150 ML BAG IV SCH ×2 (09:57→19:37)
[2017-01-04] MEDS: BABY ASPIRIN PO SCH (09:58)
[2017-01-04] MEDS: LOVENOX SUB-Q SCH (09:58)
[2017-01-04] MEDS: MUCINEX ER PO SCH ×2 (09:58→21:42)
[2017-01-04] MEDS: ZESTRIL PO SCH (09:59)
[2017-01-04] MEDS: celeXA PO SCH (10:00)
--- NOTE | 2017-01-04 12:48 | Progress Note ---
Assessment and Plan Assessment and plan: 1. Acute on chronic hypoxic respiratory failure due to copd exacerbation- continue nebulization treatments; cont IV steroids; continue brovana and pulmicort; pulmonary following; change levaquin to IV 2. Sepsis POA due to acute bronchitis / pneumonia- continue levaquin; f/u blood c/s; wbc increasing most likely secondary to steroids; cont mucinex 3. Benign HTN- controlled- cont meds 4. Dyslipidemia- cont statin 5. DVT prophylaxis-lovenox History Interval history: Patient still complains of cough and dyspnea with exertion. Hospitalist Physical - Constitutional Vitals: Temp Pulse Resp BP Pulse Ox 97.4 F L 77 20 136/81 96 01/04/17 08:00 01/04/17 09:59 01/04/17 08:00 01/04/17 09:59 01/04/17 10:00 General appearance: Present: no acute distress, well-nourished - EENT Eyes: Present: PERRL, EOM intact ENT: hearing intact, clear oral mucosa, dentition normal - Neck Neck: Present: supple, normal ROM - Respiratory Respiratory effort: normal Respiratory: bilateral: CTA - Cardiovascular Rhythm: regular Heart Sounds: Present: S1 & S2. Absent: gallop, rub - Extremities Extremities: no ischemia, No edema, Full ROM - Abdominal General gastrointestinal: soft, non-tender, non-distended, normal bowel sounds - Integumentary Integumentary: Present: clear, warm, dry - Neurologic Neurologic: CNII-XII intact, moves all extremities Results - Labs CBC & Chem 7: 01/04/17 06:26 01/04/17 06:26 Labs: Laboratory Last Values WBC 23.9 K/mm3 (4.5-11.0) H 01/04/17 06:26 RBC 4.89 M/mm3 (3.65-5.03) 01/04/17 06:26 Hgb 14.8 gm/dl (11.8-15.2) 01/04/17 06:26 Hct 45.0 % (35.5-45.6) 01/04/17 06:26 MCV 92 fl (84-94) 01/04/17 06:26 MCH 30 pg (28-32) 01/04/17 06:26 MCHC 33 % (32-34) 01/04/17 06:26 RDW 13.7 % (13.2-15.2) 01/04/17 06:26 Plt Count 246 K/mm3 (140-440) 01/04/17 06:26 Lymph % (Auto) 4.0 % (13.4-35.0) L 01/01/17 19:52 [place] % (Auto) 5.5 % (0.0-7.3) 01/01/17 19:52 Eos % (Auto) 0.3 % (0.0-4.3) 01/01/17 19:52 Baso % (Auto) 0.5 % (0.0-1.8) 01/01/17 19:52 Lymph # 0.5 K/mm3 (1.2-5.4) L 01/01/17 19:52 [place] # 0.7 K/mm3 (0.0-0.8) 01/01/17 19:52 Eos # 0.0 K/mm3 (0.0-0.4) 01/01/17 19:52 Baso # 0.1 K/mm3 (0.0-0.1) 01/01/17 19:52 Add Manual Diff Complete 01/04/17 06:26 Total Counted 100 01/04/17 06:26 Seg Neutrophils % Deicer Kit Assembler 01/04/17 06:26 Seg Neuts % (Manual) 84.0 % (40.0-70.0) H 01/04/17 06:26 Band Neutrophils % 12.0 % 01/04/17 06:26 Lymphocytes % (Manual) 1.0 % (13.4-35.0) L 01/04/17 06:26 Reactive Lymphs % (Man) 0 % 01/04/17 06:26 Monocytes % (Manual) 3.0 % (0.0-7.3) 01/04/17 06:26 Eosinophils % (Manual) 0 % (0.0-4.3) 01/04/17 06:26 Basophils % (Manual) 0 % (0.0-1.8) 01/03/17 04:43 Metamyelocytes % 0 % 01/04/17 06:26 Myelocytes % 0 % 01/04/17 06:26 Promyelocytes % 0 % 01/04/17 06:26 Blast Cells % 0 % 01/04/17 06:26 Nucleated RBC % Not Reportable 01/04/17 06:26 Seg Neutrophils # 11.9 K/mm3 (1.8-7.7) H 01/01/17 19:52 Seg Neutrophils # Man 20.1 K/mm3 (1.8-7.7) H 01/04/17 06:26 Band Neutrophils # 2.9 K/mm3 01/04/17 06:26 Lymphocytes # (Manual) 0.2 K/mm3 (1.2-5.4) L 01/04/17 06:26 Abs React Lymphs (Man) 0.0 K/mm3 01/04/17 06:26 Monocytes # (Manual) 0.7 K/mm3 (0.0-0.8) 01/04/17 06:26 Eosinophils # (Manual) 0.0 K/mm3 (0.0-0.4) 01/04/17 06:26 Basophils # (Manual) 0.0 K/mm3 (0.0-0.1) 01/04/17 06:26 Metamyelocytes # 0.0 K/mm3 01/04/17 06:26 Myelocytes # 0.0 K/mm3 01/04/17 06:26 Promyelocytes # 0.0 K/mm3 01/04/17 06:26 Blast Cells # 0.0 K/mm3 01/04/17 06:26 WBC Morphology Not Reportable 01/04/17 06:26 Hypersegmented Neuts Not Reportable 01/04/17 06:26 Hyposegmented Neuts Not Reportable 01/04/17 06:26 Hypogranular Neuts Not Reportable 01/04/17 06:26 Smudge Cells Not Reportable 01/04/17 06:26 Toxic Granulation Not Reportable 01/04/17 06:26 Toxic Vacuolation Not Reportable 01/04/17 06:26 Dohle Bodies Not Reportable 01/04/17 06:26 Pelger-Huet Anomaly Not Reportable 01/04/17 06:26 Andres Rods Not Reportable 01/04/17 06:26 Platelet Estimate Appears normal 01/04/17 06:26 Clumped Platelets Not Reportable 01/04/17 06:26 Plt Clumps, EDTA Not Reportable 01/04/17 06:26 Large Platelets Not Reportable 01/04/17 06:26 Giant Platelets Not Reportable 01/04/17 06:26 Platelet Satelliting Not Reportable 01/04/17 06:26 Plt Morphology Comment Not Reportable 01/04/17 06:26 RBC Morphology Normal 01/04/17 06:26 Dimorphic RBCs Not Reportable 01/04/17 06:26 Polychromasia Not Reportable 01/04/17 06:26 Hypochromasia Not Reportable 01/04/17 06:26 Poikilocytosis Not Reportable 01/04/17 06:26 Anisocytosis Not Reportable 01/04/17 06:26 Microcytosis Not Reportable 01/04/17 06:26 Macrocytosis Not Reportable 01/04/17 06:26 Spherocytes Not Reportable 01/04/17 06:26 Pappenheimer Bodies Not Reportable 01/04/17 06:26 Sickle Cells Not Reportable 01/04/17 06:26 Target Cells Not Reportable 01/04/17 06:26 Tear Drop Cells Not Reportable 01/04/17 06:26 Ovalocytes Not Reportable 01/04/17 06:26 Helmet Cells Not Reportable 01/04/17 06:26 Varghese-[place] Bodies Not Reportable 01/04/17 06:26 [place] Rings Not Reportable 01/04/17 06:26 [place] Cells Not Reportable 01/04/17 06:26 Bite Cells Not Reportable 01/04/17 06:26 Crenated Cell Not Reportable 01/04/17 06:26 Elliptocytes Not Reportable 01/04/17 06:26 Acanthocytes (Spur) Not Reportable 01/04/17 06:26 Rouleaux Not Reportable 01/04/17 06:26 Hemoglobin C Crystals Not Reportable 01/04/17 06:26 Schistocytes Not Reportable 01/04/17 06:26 Malaria parasites Not Reportable 01/04/17 06:26 Toni Bodies Not Reportable 01/04/17 06:26 Hem Pathologist Commnt No 01/04/17 06:26 POC ABG pH 7.396 (7.35-7.45) 01/02/17 04:00 POC ABG pCO2 41.7 (35-45) 01/02/17 04:00 POC ABG pO2 48 (80-105) L 01/02/17 04:00 POC ABG HCO3 25.6 01/02/17 04:00 POC ABG Total CO2 27 01/02/17 04:00 POC ABG O2 Sat 83 01/02/17 04:00 POC ABG Base Excess 1 01/02/17 04:00 FiO2 28 % 01/02/17 04:00 Sodium 143 mmol/L (137-145) D 01/04/17 06:26 Potassium 5.2 mmol/L (3.6-5.0) H D 01/04/17 06:26 Chloride 100.7 mmol/L (98-107) 01/04/17 06:26 Carbon Dioxide 26 mmol/L (22-30) 01/04/17 06:26 Anion Gap 22 mmol/L 01/04/17 06:26 BUN 20 mg/dL (9-20) 01/04/17 06:26 Creatinine 1.0 mg/dL (0.8-1.5) 01/04/17 06:26 Estimated GFR > 60 ml/min 01/04/17 06:26 BUN/Creatinine Ratio 20.00 % 01/04/17 06:26 Glucose 128 mg/dL (75-100) H 01/04/17 06:26 Calcium 8.8 mg/dL (8.4-10.2) 01/04/17 06:26
[2017-01-04] MEDS: ZOCOR PO SCH (21:42)
[2017-01-04] MEDS: PERCOCET 5/325 PO PRN (21:42)
--- NOTE | 2017-01-04 22:12 | Progress Note ---
Assessment and Plan This is 51 year old male admitted through the emergency room from [facility] with a complaint of shortness of breath and cough with productive white sputum and fever. Patient complained pleuritic chest pain with cough. Patient has history of COPD . Patient also has history of hypertension and hyperlipidemia.Patient has history of smoking.2 packs a day for 30 years.Patient still smoking. Counselled him to stop smoking.No history of drug abuse.Drinks beer at times. Allergic to sulfa and oxytetracycline and pencillins. 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 O2 satuaration 94% .Patient started on albuterol/atrovent aerosol treatments and solumedral and Levaquine. Obtaining Angio CT of chest. Angio CT of chest reported No PE. New ground glass infiltrate left upper lobe. . Patient complained fever and has leukocytosis. Patient placed on I/V Levaquine. Patient afebrile today.Patient says breathing better.O2 satuaration 96% on 3 litres O2. Tapering the steroids. - Patient Problems (1) COPD with acute bronchitis Current Visit: Yes Status: Acute Plan to address problem: O2 supplementation. Albuterol/atrovent aerosol treatments q 6 hours. Decrease I/V solumedral 40mg I/V q 8 hours. recommend to change Levaquine to I/V Continue S/C Lovenox Recommend famotadine or protonix. (2) Hypoxia Current Visit: Yes Status: Acute Plan to address problem: O2 supplementation Angio CT of chest reported no PE. Repeat blood gases on room air. (3) Hypertension Current Visit: No Status: Acute Qualifiers: Hypertension type: H Plan to address problem: Management as per primary care. (4) Obesity (BMI 30-39.9) Current Visit: Yes Status: Acute Plan to address problem: Diet and exercise. Recommend to consult automatic data processing planner for weight reduction diet. (5) Sleep apnea, obstructive Current Visit: Yes Status: Acute Plan to address problem: Recommend sleep study as outpatient. Subjective Date of service: 01/04/17 Interval history: Patient alert,awake. Mild shortness of breath at rest. Patient is on 3 litres O2. O2 satuaration 97%. Patient has Angio CT of chest reported no PE. Reported new ground glass infiltrate left upper lobe. Patient came in with fever. Patient has Leukocytosis. Patient is placed on I/V Levaquine .Patient afebrile today. Patient says he is breathing better.O2 satuaration 96% on 3 litres O2. Tapering the steroids. Objective Vital Signs - 12hr 01/04/17 01/04/17 01/04/17 11:50 12:00 16:00 Temperature 98.0 F 98.0 F Pulse Rate 81 Pulse Rate [ Anterior Bilateral Throughout] Pulse Rate [ 70 87 Left Radial] Respiratory 20 20 Rate Respiratory Rate [Anterior Bilateral Throughout] Blood Pressure 144/67 138/82 [Left Arm] O2 Sat by Pulse 94 91 Oximetry 01/04/17 01/04/17 01/04/17 20:00 20:13 21:46 Temperature 98.3 F Pulse Rate Pulse Rate [ 84 84 Anterior Bilateral Throughout] Pulse Rate [ 89 Left Radial] Respiratory 18 Rate Respiratory 20 20 Rate [Anterior Bilateral Throughout] Blood Pressure 149/74 [Left Arm] O2 Sat by Pulse 98 96 Oximetry Constitutional: no acute distress, asleep Eyes: non-icteric ENT: oropharynx moist Neck: supple, no JVD Ascultation: Bilateral: wheezes, rales Cardiovascular: regular rate and rhythm Gastrointestinal: normoactive bowel sounds, soft, non-tender Integumentary: normal Extremities: no cyanosis, no edema Neurologic: non-focal exam, pupils equal and round, CN II-XII normal Psychiatric: other (Patient sleeping at this time) CBC and BMP: 01/04/17 06:26 01/04/17 06:26 ABG, PT/INR, D-dimer: ABG POC ABG pH 7.396 (7.35-7.45) 01/02/17 04:00 POC ABG pCO2 41.7 (35-45) 01/02/17 04:00 POC ABG pO2 48 (80-105) L 01/02/17 04:00 POC ABG HCO3 25.6 01/02/17 04:00 POC ABG Total CO2 27 01/02/17 04:00 POC ABG O2 Sat 83 01/02/17 04:00 Abnormal lab findings: Abnormal Labs 01/02/17 01/02/17 01/02/17 04:00 04:25 04:25 WBC 11.5 H Seg Neuts % (Manual) 94.0 H Lymphocytes % (Manual) 5.0 L Seg Neutrophils # Man 10.8 H Lymphocytes # (Manual) 0.6 L POC ABG pO2 48 L Sodium 135 L Potassium Chloride 93.7 L Glucose 162 H 01/03/17 01/04/17 01/04/17 04:43 06:26 06:26 WBC 25.2 H 23.9 H Seg Neuts % (Manual) 93.5 H 84.0 H Lymphocytes % (Manual) 2.0 L 1.0 L Seg Neutrophils # Man 23.6 H 20.1 H Lymphocytes # (Manual) 0.5 L 0.2 L POC ABG pO2 Sodium Potassium 5.2 H D Chloride Glucose 128 H
[2017-01-05] MEDS: DUONEB 0.5 MG-3 MG/3 ML SOLN IH SCH ×4 (03:16→20:00)
[2017-01-05] MEDS: BROVANA NEBU IH SCH ×2 (07:30→20:00)
[2017-01-05] MEDS: PULMICORT IH SCH ×2 (07:30→20:00)
[2017-01-05] MEDS: PERCOCET 5/325 PO PRN (08:10)
[2017-01-05] MEDS: LEVAQUIN 750MG/150ML 750 MG/150 ML BAG IV SCH (09:22)
[2017-01-05] MEDS: celeXA PO SCH (09:23)
[2017-01-05] MEDS: BABY ASPIRIN PO SCH (09:23)
[2017-01-05] MEDS: ZESTRIL PO SCH (09:24)
[2017-01-05] MEDS: LOVENOX SUB-Q SCH (09:24)
[2017-01-05] MEDS: MUCINEX ER PO SCH ×2 (09:24→22:00)
--- NOTE | 2017-01-05 14:31 | Progress Note ---
Assessment and Plan Assessment and plan: 1. Acute on chronic hypoxic respiratory failure due to copd exacerbation- continue nebulization treatments; cont IV steroids; continue brovana and pulmicort; pulmonary following; change levaquin to IV 2. Sepsis POA due to acute bronchitis / pneumonia- continue levaquin; f/u blood c/s; wbc increasing most likely secondary to steroids; cont mucinex 3. Benign HTN- controlled- cont meds 4. Dyslipidemia- cont statin 5. DVT prophylaxis-lovenox History Interval history: Patient still complains of cough and dyspnea with exertion. Hospitalist Physical - Constitutional Vitals: Temp Pulse Resp BP Pulse Ox 97.4 F L 85 18 134/68 93 01/05/17 09:43 01/05/17 11:00 01/05/17 09:43 01/05/17 09:43 01/05/17 09:43 General appearance: Present: no acute distress, well-nourished - EENT Eyes: Present: PERRL, EOM intact ENT: hearing intact, clear oral mucosa, dentition normal - Neck Neck: Present: supple, normal ROM - Respiratory Respiratory effort: normal Respiratory: bilateral: diminished - Cardiovascular Rhythm: regular Heart Sounds: Present: S1 & S2. Absent: gallop, rub - Extremities Extremities: no ischemia, No edema, Full ROM - Abdominal General gastrointestinal: soft, non-tender, non-distended, normal bowel sounds - Integumentary Integumentary: Present: clear, warm, dry - Neurologic Neurologic: CNII-XII intact, moves all extremities Results - Labs CBC & Chem 7: 01/04/17 06:26 01/04/17 06:26 Labs: Laboratory Last Values WBC 23.9 K/mm3 (4.5-11.0) H 01/04/17 06:26 RBC 4.89 M/mm3 (3.65-5.03) 01/04/17 06:26 Hgb 14.8 gm/dl (11.8-15.2) 01/04/17 06:26 Hct 45.0 % (35.5-45.6) 01/04/17 06:26 MCV 92 fl (84-94) 01/04/17 06:26 MCH 30 pg (28-32) 01/04/17 06:26 MCHC 33 % (32-34) 01/04/17 06:26 RDW 13.7 % (13.2-15.2) 01/04/17 06:26 Plt Count 246 K/mm3 (140-440) 01/04/17 06:26 Lymph % (Auto) 4.0 % (13.4-35.0) L 01/01/17 19:52 [place] % (Auto) 5.5 % (0.0-7.3) 01/01/17 19:52 Eos % (Auto) 0.3 % (0.0-4.3) 01/01/17 19:52 Baso % (Auto) 0.5 % (0.0-1.8) 01/01/17 19:52 Lymph # 0.5 K/mm3 (1.2-5.4) L 01/01/17 19:52 [place] # 0.7 K/mm3 (0.0-0.8) 01/01/17 19:52 Eos # 0.0 K/mm3 (0.0-0.4) 01/01/17 19:52 Baso # 0.1 K/mm3 (0.0-0.1) 01/01/17 19:52 Add Manual Diff Complete 01/04/17 06:26 Total Counted 100 01/04/17 06:26 Seg Neutrophils % Gasoline Truck Operator 01/04/17 06:26 Seg Neuts % (Manual) 84.0 % (40.0-70.0) H 01/04/17 06:26 Band Neutrophils % 12.0 % 01/04/17 06:26 Lymphocytes % (Manual) 1.0 % (13.4-35.0) L 01/04/17 06:26 Reactive Lymphs % (Man) 0 % 01/04/17 06:26 Monocytes % (Manual) 3.0 % (0.0-7.3) 01/04/17 06:26 Eosinophils % (Manual) 0 % (0.0-4.3) 01/04/17 06:26 Basophils % (Manual) 0 % (0.0-1.8) 01/03/17 04:43 Metamyelocytes % 0 % 01/04/17 06:26 Myelocytes % 0 % 01/04/17 06:26 Promyelocytes % 0 % 01/04/17 06:26 Blast Cells % 0 % 01/04/17 06:26 Nucleated RBC % Not Reportable 01/04/17 06:26 Seg Neutrophils # 11.9 K/mm3 (1.8-7.7) H 01/01/17 19:52 Seg Neutrophils # Man 20.1 K/mm3 (1.8-7.7) H 01/04/17 06:26 Band Neutrophils # 2.9 K/mm3 01/04/17 06:26 Lymphocytes # (Manual) 0.2 K/mm3 (1.2-5.4) L 01/04/17 06:26 Abs React Lymphs (Man) 0.0 K/mm3 01/04/17 06:26 Monocytes # (Manual) 0.7 K/mm3 (0.0-0.8) 01/04/17 06:26 Eosinophils # (Manual) 0.0 K/mm3 (0.0-0.4) 01/04/17 06:26 Basophils # (Manual) 0.0 K/mm3 (0.0-0.1) 01/04/17 06:26 Metamyelocytes # 0.0 K/mm3 01/04/17 06:26 Myelocytes # 0.0 K/mm3 01/04/17 06:26 Promyelocytes # 0.0 K/mm3 01/04/17 06:26 Blast Cells # 0.0 K/mm3 01/04/17 06:26 WBC Morphology Not Reportable 01/04/17 06:26 Hypersegmented Neuts Not Reportable 01/04/17 06:26 Hyposegmented Neuts Not Reportable 01/04/17 06:26 Hypogranular Neuts Not Reportable 01/04/17 06:26 Smudge Cells Not Reportable 01/04/17 06:26 Toxic Granulation Not Reportable 01/04/17 06:26 Toxic Vacuolation Not Reportable 01/04/17 06:26 Dohle Bodies Not Reportable 01/04/17 06:26 Pelger-Huet Anomaly Not Reportable 01/04/17 06:26 Andres Rods Not Reportable 01/04/17 06:26 Platelet Estimate Appears normal 01/04/17 06:26 Clumped Platelets Not Reportable 01/04/17 06:26 Plt Clumps, EDTA Not Reportable 01/04/17 06:26 Large Platelets Not Reportable 01/04/17 06:26 Giant Platelets Not Reportable 01/04/17 06:26 Platelet Satelliting Not Reportable 01/04/17 06:26 Plt Morphology Comment Not Reportable 01/04/17 06:26 RBC Morphology Normal 01/04/17 06:26 Dimorphic RBCs Not Reportable 01/04/17 06:26 Polychromasia Not Reportable 01/04/17 06:26 Hypochromasia Not Reportable 01/04/17 06:26 Poikilocytosis Not Reportable 01/04/17 06:26 Anisocytosis Not Reportable 01/04/17 06:26 Microcytosis Not Reportable 01/04/17 06:26 Macrocytosis Not Reportable 01/04/17 06:26 Spherocytes Not Reportable 01/04/17 06:26 Pappenheimer Bodies Not Reportable 01/04/17 06:26 Sickle Cells Not Reportable 01/04/17 06:26 Target Cells Not Reportable 01/04/17 06:26 Tear Drop Cells Not Reportable 01/04/17 06:26 Ovalocytes Not Reportable 01/04/17 06:26 Helmet Cells Not Reportable 01/04/17 06:26 Varghese-[place] Bodies Not Reportable 01/04/17 06:26 [place]on Rings Not Reportable 01/04/17 06:26 Bishnu Cells Not Reportable 01/04/17 06:26 Bite Cells Not Reportable 01/04/17 06:26 Crenated Cell Not Reportable 01/04/17 06:26 Elliptocytes Not Reportable 01/04/17 06:26 Acanthocytes (Spur) Not Reportable 01/04/17 06:26 Rouleaux Not Reportable 01/04/17 06:26 Hemoglobin C Crystals Not Reportable 01/04/17 06:26 Schistocytes Not Reportable 01/04/17 06:26 Malaria parasites Not Reportable 01/04/17 06:26 Toni Bodies Not Reportable 01/04/17 06:26 Hem Pathologist Commnt No 01/04/17 06:26 POC ABG pH 7.396 (7.35-7.45) 01/02/17 04:00 POC ABG pCO2 41.7 (35-45) 01/02/17 04:00 POC ABG pO2 48 (80-105) L 01/02/17 04:00 POC ABG HCO3 25.6 01/02/17 04:00 POC ABG Total CO2 27 01/02/17 04:00 POC ABG O2 Sat 83 01/02/17 04:00 POC ABG Base Excess 1 01/02/17 04:00 FiO2 28 % 01/02/17 04:00 Sodium 143 mmol/L (137-145) D 01/04/17 06:26 Potassium 5.2 mmol/L (3.6-5.0) H D 01/04/17 06:26 Chloride 100.7 mmol/L (98-107) 01/04/17 06:26 Carbon Dioxide 26 mmol/L (22-30) 01/04/17 06:26 Anion Gap 22 mmol/L 01/04/17 06:26 BUN 20 mg/dL (9-20) 01/04/17 06:26 Creatinine 1.0 mg/dL (0.8-1.5) 01/04/17 06:26 Estimated GFR > 60 ml/min 01/04/17 06:26 BUN/Creatinine Ratio 20.00 % 01/04/17 06:26 Glucose 128 mg/dL (75-100) H 01/04/17 06:26 Calcium 8.8 mg/dL (8.4-10.2) 01/04/17 06:26
--- NOTE | 2017-01-05 17:03 | Progress Note ---
Assessment and Plan This is 51 year old male admitted through the emergency room from [facility] with a complaint of shortness of breath and cough with productive white sputum and fever. Patient complained pleuritic chest pain with cough. Patient has history of COPD . Patient also has history of hypertension and hyperlipidemia.Patient has history of smoking.2 packs a day for 30 years.Patient still smoking. Counselled him to stop smoking.No history of drug abuse.Drinks beer at times. Allergic to sulfa and oxytetracycline and pencillins. 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 O2 satuaration 94% .Patient started on albuterol/atrovent aerosol treatments and solumedral and Levaquine. Obtaining Angio CT of chest. Angio CT of chest reported No PE. New ground glass infiltrate left upper lobe. . Patient complained fever and has leukocytosis. Patient placed on I/V Levaquine. Patient afebrile today.Patient says breathing better.O2 satuaration 93% on 3 litres O2. Tapering the steroids. Repeating chest xray, ABGs on room air tomorrow. If ABGs and chest xray results are Ok Patient can go home tomorrow from pulmonary point of view with PO Steroids, PO Levaquine and bronchodilators. If patients PO2 remain low PO2 below 55 and satuaration below 89% Patient candidate for home O2. - Patient Problems (1) COPD with acute bronchitis Current Visit: Yes Status: Acute Plan to address problem: O2 supplementation. Albuterol/atrovent aerosol treatments q 6 hours. Decrease I/V solumedral 40mg I/V q 8 hours. recommend to change Levaquine to I/V Continue S/C Lovenox Recommend famotadine or protonix. (2) Hypoxia Current Visit: Yes Status: Acute Plan to address problem: O2 supplementation Angio CT of chest reported no PE. Repeat blood gases on room air. (3) Hypertension Current Visit: No Status: Acute Qualifiers: Hypertension type: H Plan to address problem: Management as per primary care. (4) Obesity (BMI 30-39.9) Current Visit: Yes Status: Acute Plan to address problem: Diet and exercise. Recommend to consult title examiner for weight reduction diet. (5) Sleep apnea, obstructive Current Visit: Yes Status: Acute Plan to address problem: Recommend sleep study as outpatient. Subjective Date of service: 01/05/17 Interval history: Patient alert,awake. Mild shortness of breath at rest. Patient is on 3 litres O2. O2 satuaration 97%. Patient has Angio CT of chest reported no PE. Reported new ground glass infiltrate left upper lobe. Patient came in with fever. Patient has Leukocytosis. Patient is placed on I/V Levaquine .Patient afebrile today. Patient says he is breathing better.O2 satuaration 93% on 3 litres O2. Tapering the steroids.Chest xray and ABGs tomorrow. If ABGs and chest xray results are Ok Patient can go home tomorrow from pulmonary point of view with PO Steroids, PO Levaquine and bronchodilators. If patients PO2 remain low on ABGs on room air , Patient is candidate for home O2. Objective Vital Signs - 12hr 01/05/17 01/05/17 01/05/17 07:31 09:24 09:34 Temperature Pulse Rate 88 Pulse Rate [ 86 Anterior Bilateral Throughout] Pulse Rate [ Left Radial] Respiratory 18 Rate Respiratory 18 Rate [Anterior Bilateral Throughout] Blood Pressure 137/83 Blood Pressure [Left Arm] O2 Sat by Pulse Oximetry 01/05/17 01/05/17 09:43 11:00 Temperature 97.4 F L Pulse Rate 85 Pulse Rate [ Anterior Bilateral Throughout] Pulse Rate [ 77 Left Radial] Respiratory 18 Rate Respiratory Rate [Anterior Bilateral Throughout] Blood Pressure Blood Pressure 134/68 [Left Arm] O2 Sat by Pulse 93 Oximetry Constitutional: no acute distress, asleep Eyes: non-icteric ENT: oropharynx moist Neck: supple, no JVD Ascultation: Bilateral: wheezes, rales Cardiovascular: regular rate and rhythm Gastrointestinal: normoactive bowel sounds, soft, non-tender Integumentary: normal Extremities: no cyanosis, no edema Neurologic: non-focal exam, pupils equal and round, CN II-XII normal Psychiatric: other (Patient sleeping at this time) CBC and BMP: 01/04/17 06:26 01/04/17 06:26 ABG, PT/INR, D-dimer: ABG POC ABG pH 7.396 (7.35-7.45) 01/02/17 04:00 POC ABG pCO2 41.7 (35-45) 01/02/17 04:00 POC ABG pO2 48 (80-105) L 01/02/17 04:00 POC ABG HCO3 25.6 01/02/17 04:00 POC ABG Total CO2 27 01/02/17 04:00 POC ABG O2 Sat 83 01/02/17 04:00 Abnormal lab findings: Abnormal Labs 01/02/17 01/02/17 01/02/17 04:00 04:25 04:25 WBC 11.5 H Seg Neuts % (Manual) 94.0 H Lymphocytes % (Manual) 5.0 L Seg Neutrophils # Man 10.8 H Lymphocytes # (Manual) 0.6 L POC ABG pO2 48 L Sodium 135 L Potassium Chloride 93.7 L Glucose 162 H 01/03/17 01/04/17 01/04/17 04:43 06:26 06:26 WBC 25.2 H 23.9 H Seg Neuts % (Manual) 93.5 H 84.0 H Lymphocytes % (Manual) 2.0 L 1.0 L Seg Neutrophils # Man 23.6 H 20.1 H Lymphocytes # (Manual) 0.5 L 0.2 L POC ABG pO2 Sodium Potassium 5.2 H D Chloride Glucose 128 H
[2017-01-05] MEDS: ZOCOR PO SCH (22:01)
[2017-01-06] MEDS: DUONEB 0.5 MG-3 MG/3 ML SOLN IH SCH ×3 (02:23→13:34)
--- NOTE | 2017-01-06 07:49 | XRay Report ---
CHEST X-RAY, 2 VIEWS History: Followup pneumonia. Findings: Compared to 01/01/17 and 01/03/17. The lungs are clear on today's exam. No infiltrate, pleural effusion or pneumothorax is identified. Mild underlying emphysematous changes are suspected. Heart and mediastinal structures are within normal limits. The thoracic tendon is intact. Lower cervical fusion is partially imaged. Impression: Essentially unremarkable chest x-ray. No infiltrate is identified.
[2017-01-06] MEDS: PULMICORT IH SCH (07:54)
[2017-01-06] MEDS: BROVANA NEBU IH SCH (09:28)
[2017-01-06] MEDS: LEVAQUIN 750MG/150ML 750 MG/150 ML BAG IV SCH (09:36)
[2017-01-06] MEDS: LOVENOX SUB-Q SCH (09:37)
[2017-01-06] MEDS: MUCINEX ER PO SCH (09:37)
[2017-01-06] MEDS: celeXA PO SCH (09:37)
[2017-01-06] MEDS: ZESTRIL PO SCH (09:38)
[2017-01-06] MEDS: BABY ASPIRIN PO SCH (09:38)
[2017-01-06 09:55] LABS: ISTAT Base Excess 4; ISTAT DEVICE 0; ISTAT HCO3 28.4; ISTAT PCO2 43.3 (35-45); ISTAT PH 7.425 (7.35-7.45); ISTAT PO2 61 (80-105); ISTAT SO2 92; ISTAT TCO2 30
[2017-01-06] MEDS ORDERED: PEPCID PO SCH (10:00)
--- NOTE | 2017-01-06 11:09 | Discharge Summary ---
Providers - Providers Date of Admission: 01/01/17 21:59 Date of discharge: 01/06/17 Attending physician: SHANNA HARRIS MD 01/02/17 15:12 Consult to Physician [CONS] Routine Consulting Provider: KAMLESH SAAVEDRA Reason For Exam: copd exacerbation Place consult to:: mira Notified:: a service Phone number called:: [phone] Was contact made?: Yes Time called:: 15:34 Primary care physician: MAMMOGRAPHY TECHNICIAN Hospitalization Reason for admission: shortness of breath Condition: Stable Hospital course: 51-year-old man with a history of COPD, on home oxygen, hypertension, hyperlipidemia presents emergency room with complaints of shortness of breath worsened on the day of presentation, cough productive of thick white phlegm, subjective fever and chills Patient denies chest pain, palpitation, abdominal pain, hematochezia, dysuria, frequency, focal weakness, dysarthria, fever chills, polydipsia polyuria, hot or cold intolerance, easy bruisability, or rash or bleeding from mucosal membrane, rhinorrhea, epistaxis, earache, tinnitus, blurry vision, eye discharge , anxiety, depression. Other review of systems negative she was started on aggressive treatment with systemic steroid tapered also with LABA and ICS with good improvement. Tobacco cessation counseling was provided to the patient about 50 minutes of time was spent discussing with the patient and provided resources. The patient was also started on empiric antibiotics for community- acquired pneumonia with good improvement. VT E workup was negative patient was informed about other risk factors including malignancy and to follow-up with primary care physician to have complete workup. Symptoms improved today and his clinically stable for discharge. 1. Acute on chronic hypoxic respiratory failure due to copd exacerbation 2. Sepsis POA due to acute bronchitis / pneumonia 3. Benign HTN 4. Dyslipidemia 5. Tobacco cessation 6. KALI 7. Hyperkalemia-resolved Disposition: DISCHARGED TO HOME OR SELFCARE Time spent for discharge: 35 mins Core Measure Documentation - Palliative Care Palliative Care/ Comfort Measures: Not Applicable - Core Measures Any of the following diagnoses?: none - VTE Discharge Requirements Deep Vein Thrombosis/Pulmonary Embolism Present on Admission: No Exam - Physical Exam Narrative exam: VITAL SIGNS: Reviewed. GENERAL: The patient appeared well nourished and normally developed. Vital signs as documented. HEAD: No signs of head trauma. EYES: Pupils are equal. Extraocular motions intact. EARS: Hearing grossly intact. MOUTH: Oropharynx is normal. NECK: No adenopathy, no JVD. CHEST: Chest with clear breath sounds bilaterally. No wheezes, rales, or rhonchi. CARDIAC: Regular rate and rhythm. S1 and S2, without murmurs, gallops, or rubs. VASCULAR: No Edema. Peripheral pulses normal and equal in all extremities. ABDOMEN: Soft, without detectable tenderness. No sign of distention. No rebound or guarding, and no masses palpated. Bowel Sounds normal. MUSCULOSKELETAL: Good range of motion of all major joints. Extremities without clubbing, cyanosis or edema. NEUROLOGIC EXAM: Alert and oriented x 3. No focal sensory or strength deficits. Speech normal. Follows commands. PSYCHIATRIC: Mood normal. SKIN: No rash or lesions. - Constitutional Vitals: Temp Pulse Resp BP Pulse Ox 97.4 F L 76 21 134/78 96 01/06/17 09:05 01/06/17 09:14 01/06/17 09:14 01/06/17 09:05 01/06/17 09:14 Plan Activity: advance as tolerated Diet: low fat Special Instructions: record daily weights, record daily BP diary, smoking cessation Durable Medical Equipment Needed Upon Discharge: Nebulizer Additional Instructions: Sleep Study outpatient Follow up with: PRIMARY CAREMD [Primary Care Provider] - 3-5 Days KAMLESH SAAVEDRA MD [Staff Physician] - 7 Days Prescriptions: Aspirin [Aspirin BABY CHEW TAB] 81 mg PO QDAY #30 tab.chew Famotidine [Pepcid] 20 mg PO BID #60 tablet Fluticasone/Salmeterol [Advair Diskus 250-50 mcg] 1 puff IH DAILY #1 blst.w.dev guaiFENesin ER [Mucinex ER] 600 mg PO BID #10 tablet Ipratropium/Albuterol Sulfate [Duoneb 0.5 mg-3 mg/3 ml Soln] 1 ampul IH Q6HRT # 90 ampul.neb predniSONE [Deltasone] 10 mg PO .TAPER #48 tab traMADol [Ultram 50 MG tab] 50 mg PO Q4H PRN #20 tablet PRN Reason: Pain, Moderate (4-6)
--- NOTE | 2017-01-06 11:48 | Progress Note ---
Assessment and Plan - Patient Problems (1) Acute exacerbation of chronic obstructive pulmonary disease (COPD) Current Visit: Yes Status: Acute Plan to address problem: - complete systemic steroid taper - advised to use LABA & ICS religiously as prescribed - needs outpatient pulmonary clinic f/up - tobacco abstinence counselled - complete empiric AB's course - prn YVETTE (2) CAP (community acquired pneumonia) Current Visit: Yes Status: Acute Plan to address problem: - complete empiric AB's - discussed at length the importance off outpatient f/up and to ensure full investigation of fleeting pulmonary infiltrates (3) Sleep apnea, obstructive Current Visit: Yes Status: Acute Plan to address problem: - recommend outpatient PSG (4) D-dimer, elevated Current Visit: No Status: Acute Plan to address problem: - negative VTE w/up Subjective Date of service: 01/06/17 Principal diagnosis: Acute COPD exacerbation; Pneumonia vs Pneumonitis Interval history: Seen and examined at bedside; 24 hour events reviewed; nursing and respiratory care staff consulted; no adverse overnight events reported to me; sitting in bed ; states he is still SOB but feels a lot better than at admission; no N/V/F/C; denies acute chest pains; no hemoptysis Objective Vital Signs - 12hr 01/06/17 01/06/17 01/06/17 00:12 05:19 07:55 Temperature 98.2 F 97.6 F Pulse Rate [ 94 H Anterior Bilateral Throughout] Pulse Rate [ 68 72 Left Radial] Respiratory 18 20 Rate Respiratory 17 Rate [Anterior Bilateral Throughout] Blood Pressure 139/77 110/68 [Left Arm] O2 Sat by Pulse 95 100 94 Oximetry 01/06/17 01/06/17 09:05 09:14 Temperature 97.4 F L Pulse Rate [ Anterior Bilateral Throughout] Pulse Rate [ 70 76 Left Radial] Respiratory 18 21 Rate Respiratory Rate [Anterior Bilateral Throughout] Blood Pressure 134/78 [Left Arm] O2 Sat by Pulse 93 96 Oximetry Constitutional: no acute distress, asleep Eyes: non-icteric ENT: oropharynx moist Neck: supple, no JVD Effort: mildly labored Ascultation: Bilateral: wheezes (faint expiratory in bases), other (diminished breath sounds with prolonged exp phase) Cardiovascular: regular rate and rhythm Gastrointestinal: normoactive bowel sounds, soft, non-tender, non-distended Integumentary: normal Extremities: no cyanosis, no edema, pulses normal, no ischemia or petechiae Neurologic: normal mental status, non-focal exam, pupils equal and round, motor strength normal and Psychiatric: mood appropriate, affect normal, other (Patient sleeping at this time) CBC and BMP: 01/04/17 06:26 01/04/17 06:26 ABG, PT/INR, D-dimer: ABG POC ABG pH 7.425 (7.35-7.45) 01/06/17 09:49 POC ABG pCO2 43.3 (35-45) 01/06/17 09:49 POC ABG pO2 61 (80-105) L 01/06/17 09:49 POC ABG HCO3 28.4 01/06/17 09:49 POC ABG Total CO2 30 01/06/17 09:49 POC ABG O2 Sat 92 01/06/17 09:49 Abnormal lab findings: Abnormal Labs 01/02/17 01/02/17 01/02/17 04:00 04:25 04:25 WBC 11.5 H Seg Neuts % (Manual) 94.0 H Lymphocytes % (Manual) 5.0 L Seg Neutrophils # Man 10.8 H Lymphocytes # (Manual) 0.6 L POC ABG pO2 48 L Sodium 135 L Potassium Chloride 93.7 L Glucose 162 H 01/03/17 01/04/17 01/04/17 04:43 06:26 06:26 WBC 25.2 H 23.9 H Seg Neuts % (Manual) 93.5 H 84.0 H Lymphocytes % (Manual) 2.0 L 1.0 L Seg Neutrophils # Man 23.6 H 20.1 H Lymphocytes # (Manual) 0.5 L 0.2 L POC ABG pO2 Sodium Potassium 5.2 H D Chloride Glucose 128 H 01/06/17 09:49 WBC Seg Neuts % (Manual) Lymphocytes % (Manual) Seg Neutrophils # Man Lymphocytes # (Manual) POC ABG pO2 61 L Sodium Potassium Chloride Glucose CT scan - chest: image reviewed
[2017-01-06 13:33] VITALS: BP 136/77
== END 2017-01-06 13:10 | disposition home or self-care (01) | DRG 871 ==
LOC: ED 18:35 → 4A 21:59
PROVIDERS: ADMIT Internal Medicine; ATTEND Internal Medicine
PROC: 4A033R1 Measurement of Arterial Saturation, Peripheral, Percutaneous Approach (ICD-10-PCS; principal; 2017-01-01)
PROC: 4A033R1 Measurement of Arterial Saturation, Peripheral, Percutaneous Approach (ICD-10-PCS; 2017-01-06)
DX: A41.9 Sepsis, unspecified organism (principal); J96.20 Acute and chronic respiratory failure, unspecified whether with hypoxia or hypercapnia; J18.9 Pneumonia, unspecified organism; J44.0 Chronic obstructive pulmonary disease with (acute) lower respiratory infection; J44.1 Chronic obstructive pulmonary disease with (acute) exacerbation; I10 Essential (primary) hypertension; E78.5 Hyperlipidemia, unspecified; G47.33 Obstructive sleep apnea (adult) (pediatric); F17.200 Nicotine dependence, unspecified, uncomplicated; J20.9 Acute bronchitis, unspecified; E66.9 Obesity, unspecified; Z82.49 Family history of ischemic heart disease and other diseases of the circulatory system; Z88.0 Allergy status to penicillin; Z88.2 Allergy status to sulfonamides; Z88.8 Allergy status to other drugs, medicaments and biological substances; Z72.89 Other problems related to lifestyle; Z71.6 Tobacco abuse counseling; Z68.36 Body mass index [BMI] 36.0-36.9, adult
CPT/HCPCS: 36415; 36600; 71020; 71275; 80048; 82803; 85007; 85025; 87040; 87400; 93005; 93010; 94640; 94760; 96365; 96375; 99406; J0456; J1650; J1956; J2920; J2930; J7050; Q9967

== ENCOUNTER 2017-02-07 09:56 | Outpatient (CLI) | payer BC ==
[~2017-02-07 09:56] MED LIST: PROVENTIL IH ONE
[2017-02-07 11:21] LABS: ISTAT Base Excess 2; ISTAT DEVICE 0; ISTAT HCO3 25.7; ISTAT PCO2 37.3 (35-45); ISTAT PH 7.446 (7.35-7.45); ISTAT PO2 54 (80-105); ISTAT SO2 89; ISTAT TCO2 27
--- NOTE | 2017-02-08 07:20 | Pulmonary Function Test ---
SPIROMETRY: FVC 3.4 L which is 64% of the predicted. FEV1 is 2.36 L, which is 58% of the predicted. FEV1/FVC ratio is 70. Flow volume loop, FEF 25-75% is 1.56 L/sec, which is 44% of the predicted. MVV is 60% of the predicted. Lung volumes, TLC 7.79, which is 105% of the predicted. DLCO is 62% of the predicted. The patient's airway resistance is high, and a is low. IMPRESSION: 1. Mild obstructive ventilatory impairment as evidenced by decreased in FEV1, , FVC. 2. Decrease in DLCO. 3. Postbronchodilators. No significant improvement in FVC, FEV1 and FEF 25 to 75%. However, that does not prevent using a bronchodilator on this patient. JOB# [id number] CHIDI/LEO
== END 2017-02-07 09:57 | disposition home or self-care (01) ==
LOC: PF 09:56
PROVIDERS: ATTEND Internal Medicine
DX: J44.9 Chronic obstructive pulmonary disease, unspecified (principal)
CPT/HCPCS: 36600; 82803; 94060; 94726; 94729

== ENCOUNTER 2018-01-04 10:36 | Outpatient (CLI) | payer BC ==
[2018-01-04 11:11] LABS: Basophils # (Auto) 0.1 K/mm3 (0.0-0.1); Basophils % (Auto) 0.8 % (0.0-1.8); Eosinophils # (Auto) 0.1 K/mm3 (0.0-0.4); Eosinophils % (Auto) 1.4 % (0.0-4.3); Hematocrit 47.3 % (35.5-45.6); Lymphocytes # (Auto) 2.4 K/mm3 (1.2-5.4); Lymphocytes % (Auto) 27.6 % (13.4-35.0); Mean Corpuscular HGB Conc 34 % (32-34); Mean Corpuscular Hemoglobin 31 pg (28-32); Mean Corpuscular Volume 91 fl (84-94); Monocytes # (Auto) 0.6 K/mm3 (0.0-0.8); Monocytes % (Auto) 7.4 % (0.0-7.3); Platelet Count 245 K/mm3 (140-440); Red Blood Count 5.19 M/mm3 (3.65-5.03); Red Cell Distribution Width 13.6 % (13.2-15.2)
[2018-01-04 11:16] LABS: Alanine Aminotransferase 30 units/L (7-56); Albumin 4.3 g/dL (3.9-5); BUN/Creatinine Ratio 16; Blood Urea Nitrogen 11 mg/dL (9-20); Calcium 9.3 mg/dL (8.4-10.2); Chol/HDL Ratio 7.65 %; HDL Cholesterol 32 mg/dL (40-59); Hemolysis Index 10; LDL Cholesterol,Direct 178 mg/dL (50-130)
== END 2018-01-04 10:37 | disposition home or self-care (01) ==
LOC: LAB 10:36
PROVIDERS: ATTEND Family Medicine
DX: Z12.5 Encounter for screening for malignant neoplasm of prostate (principal); I10 Essential (primary) hypertension; E78.5 Hyperlipidemia, unspecified; J44.9 Chronic obstructive pulmonary disease, unspecified; F32.9 Major depressive disorder, single episode, unspecified; F41.9 Anxiety disorder, unspecified; F17.200 Nicotine dependence, unspecified, uncomplicated; Z79.899 Other long term (current) drug therapy
CPT/HCPCS: 36415; 80053; 80061; 84153; 85025

== ENCOUNTER 2018-05-02 05:47 | Inpatient (IN) | payer BC ==
[2018-05-02] MEDS ORDERED: DUONEB *Not for PRN Use IH ONE ×2 (06:44→07:23)
[2018-05-02 07:26] LABS: Hematocrit 41.6 % (35.5-45.6); Mean Corpuscular HGB Conc 34 % (32-34); Mean Corpuscular Hemoglobin 31 pg (28-32); Mean Corpuscular Volume 91 fl (84-94); Platelet Count 260 K/mm3 (140-440); Red Blood Count 4.58 M/mm3 (3.65-5.03)
[2018-05-02 07:41] LABS: BUN/Creatinine Ratio 19; Blood Urea Nitrogen 21 mg/dL (9-20); Calcium 9.7 mg/dL (8.4-10.2); Hemolysis Index 3
--- NOTE | 2018-05-02 08:41 | XRay Report ---
FINAL REPORT EXAM: XR CHEST ROUTINE 2V HISTORY: Shortness of breath TECHNIQUE: PA and lateral views of the chest were submitted. Comparison is made to the study of 01/09/2018. FINDINGS: The heart size and mediastinum appear normal. The lungs are clear. The lungs are slightly hyperinflated. Pleural fluid is not seen. The skeletal structures do not show any acute changes. IMPRESSION: No active chest disease.
[2018-05-02 08:54] LABS: Band Neutrophils # (Manual) 1.7 K/mm3; Basophils % (Manual) 0 % (0.0-1.8); Eosinophils % (Manual) 0 % (0.0-4.3); Total Cells Counted 100
[2018-05-02 08:55] LABS: Platelet Estimate Consistent w Auto; RBC Morphology Normal
[2018-05-02] MEDS ORDERED: NACL 0.9% 1000 ML IV ONE (11:20)
[2018-05-02] MEDS ORDERED: PROVENTIL IH ONE (11:20)
[2018-05-02] MEDS ORDERED: ATROVENT IH ONE (11:20)
[2018-05-02] MEDS ORDERED: TYLENOL PO PRN ×2 (11:20→18:33)
--- NOTE | 2018-05-02 11:23 | Emergency Department Report ---
ED General Adult HPI - General Chief complaint: Dyspnea/Respdistress Stated complaint: FRANSISCO Time Seen by Provider: 05/02/18 11:07 Source: patient, RN notes reviewed, old records reviewed Mode of arrival: Ambulatory Limitations: No Limitations - History of Present Illness Initial comments: Pulmonology: Dr. Alejandra Clinical Trials Data Coordinator: Dr. Garcia This is a 53-year-old male, known to this provider previously, history of NV, heart disease, COPD, oxygen dependent. Presents to the ER with complaints of fevers, chills, orthopnea, weakness, cough, wheezing, shortness of breath. Symptoms started last night. They're constant. It worsened with physical exertion. It decreased with rest. He denies DVT, pulmonary embolus risk factors. In the emergency room, the patient was treated for community-acquired pneumonia and sepsis with IV fluids, antibiotics and nebulizer therapy as well as steroids, and is greatly improved his symptoms. -: Gradual Severity scale (0 -10): 5 Consistency: constant Improves with: medication, rest Associated Symptoms: cough, fever/chills, loss of appetite, shortness of breath , weakness. denies: diaphoresis - Related Data Home Medications Medication Instructions Recorded Confirmed Last Taken Lisinopril [Zestril] 20 mg PO DAILY #0 03/22/16 05/02/18 05/02/18 20 mg Citalopram [Celexa] 20 mg PO QDAY 01/01/17 05/02/18 05/02/18 20 mg Aspirin [Adult Low Dose Aspirin EC] 81 mg PO DAILY 05/02/18 05/02/18 05/02/18 Previous Rx's Medication Instructions Recorded Last Taken Type ISOSORBIDE MONOnitrate [Imdur ER] 30 mg PO DAILY #30 tab.er.24h 01/10/18 Rx Metoprolol [Lopressor TAB] 100 mg PO BID #60 tablet 01/10/18 05/02/18 Rx 100 mg Pravastatin [Pravachol] 40 mg PO QHS #30 tablet 01/10/18 05/01/18 Rx 40 mg Ticagrelor [Brilinta] 90 mg PO BID #60 tablet 01/10/18 05/02/18 Rx 90 mg Allergies Allergy/AdvReac Type Severity Reaction Status Date / Time Sulfa (Sulfonamide Allergy Severe Rash Verified 03/22/16 18:34 Antibiotics) oxytetracycline Allergy Unknown Verified 03/22/16 10:32 [From Terramycin] oxytetracycline HCl Allergy Unknown Verified 03/22/16 10:32 [From Terramycin] Penicillins AdvReac Severe Shortness Verified 03/22/16 18:34 of Breath ED Review of Systems ROS: Stated complaint: FRANSISCO Other details as noted in HPI Comment: All other systems reviewed and negative Constitutional: fever, malaise, weakness ENT: congestion Respiratory: cough, shortness of breath, SOB with exertion, SOB at rest, wheezing Cardiovascular: orthopnea. denies: chest pain Genitourinary: denies: dysuria Musculoskeletal: arthralgia, myalgia ED Past Medical Hx - Past Medical History Hx Hypertension: Yes Hx Heart Attack/AMI: Yes (AMI) Hx Congestive Heart Failure: No Hx Diabetes: No Hx Asthma: No Hx COPD: Yes Additional medical history: high cholestrol, pneumonia - Surgical History Additional Surgical History: ACF surgery, Cardiac Stents. collapsed right lung : chest tube placed - Social History Smoking Status: Current Every Day Smoker Substance Use Type: None - Medications Home Medications: Home Medications Medication Instructions Recorded Confirmed Last Taken Type Lisinopril [Zestril] 20 mg PO DAILY #0 03/22/16 05/02/18 05/02/18 History 20 mg Citalopram [Celexa] 20 mg PO QDAY 01/01/17 05/02/18 05/02/18 History 20 mg ISOSORBIDE MONOnitrate [Imdur ER] 30 mg PO DAILY #30 tab.er.24h 01/10/1805/02/18 Rx Metoprolol [Lopressor TAB] 100 mg PO BID #60 tablet 01/10/18 05/02/18 05/02/18 Rx 100 mg Pravastatin [Pravachol] 40 mg PO QHS #30 tablet 01/10/18 05/02/18 05/01/18 Rx 40 mg Ticagrelor [Brilinta] 90 mg PO BID #60 tablet 01/10/18 05/02/18 05/02/18 Rx 90 mg Aspirin [Adult Low Dose Aspirin EC] 81 mg PO DAILY 05/02/18 05/02/18 05/02/18 History ED Physical Exam - General Limitations: No Limitations General appearance: alert, in distress, obese - Head Head exam: Present: atraumatic, normocephalic - Eye Eye exam: Present: normal appearance, EOMI - ENT ENT exam: Present: normal orophraynx, mucous membranes moist, normal external ear exam - Neck Neck exam: Present: normal inspection, full ROM - Respiratory Respiratory exam: Present: respiratory distress, rhonchi - Cardiovascular Cardiovascular Exam: Present: regular rate, normal rhythm, normal heart sounds. Absent: bradycardia, tachycardia, irregular rhythm, systolic murmur, diastolic murmur, rubs, gallop - GI/Abdominal GI/Abdominal exam: Present: soft, normal bowel sounds. Absent: distended, tenderness, guarding, rebound, rigid, pulsatile mass - Rectal Rectal exam: Present: deferred - Extremities Exam Extremities exam: Present: normal inspection, full ROM, normal capillary refill. Absent: pedal edema, joint swelling, calf tenderness - Back Exam Back exam: Present: normal inspection, full ROM. Absent: CVA tenderness (R), paraspinal tenderness, vertebral tenderness - Neurological Exam Neurological exam: Present: alert, oriented X3, CN II-XII intact, other ( Extraocular movements intact. Tongue midline. No facial droop. Facial sensation intact to light touch in the V1, V2, V3 distribution bilaterally. 5 and 5 strength in 4 extremities.. Sensation is intact to light touch in 4 extremities.). Absent: motor sensory deficit - Psychiatric Psychiatric exam: Present: normal affect, normal mood - Skin Skin exam: Present: warm, dry, intact, normal color. Absent: rash ED Course Vital Signs 05/02/18 05/02/18 05/02/18 05:46 10:21 10:41 Temperature 98.4 F Pulse Rate 79 82 Respiratory 18 Rate Blood Pressure 95/51 187/102 Blood Pressure [Left] O2 Sat by Pulse 90 Oximetry 05/02/18 05/02/18 05/02/18 10:45 10:52 11:00 Temperature 97.9 F Pulse Rate 80 79 83 Respiratory 22 22 20 Rate Blood Pressure 89/42 80/35 Blood Pressure 89/42 [Left] O2 Sat by Pulse 89 90 89 Oximetry 05/02/18 05/02/18 05/02/18 11:15 11:31 11:45 Temperature Pulse Rate 77 79 75 Respiratory 26 H 32 H 22 Rate Blood Pressure 80/35 80/43 101/44 Blood Pressure [Left] O2 Sat by Pulse 91 92 93 Oximetry ED Medical Decision Making - Lab Data Result diagrams: 05/02/18 07:15 05/02/18 07:15 Vital Signs 05/02/18 05/02/18 05/02/18 05:46 10:21 10:41 Temperature 98.4 F Pulse Rate 79 82 Respiratory 18 Rate Blood Pressure 95/51 187/102 Blood Pressure [Left] O2 Sat by Pulse 90 Oximetry 05/02/18 05/02/18 05/02/18 10:45 10:52 11:00 Temperature 97.9 F Pulse Rate 80 79 83 Respiratory 22 22 20 Rate Blood Pressure 89/42 80/35 Blood Pressure 89/42 [Left] O2 Sat by Pulse 89 90 89 Oximetry 05/02/18 05/02/18 05/02/18 11:15 11:31 11:45 Temperature Pulse Rate 77 79 75 Respiratory 26 H 32 H 22 Rate Blood Pressure 80/35 80/43 101/44 Blood Pressure [Left] O2 Sat by Pulse 91 92 93 Oximetry Lab Results 05/02/18 05/02/18 05/02/18 Range/Units 07:15 07:15 07:15 WBC 24.0 H (4.5-11.0) K/mm3 RBC 4.58 (3.65-5.03) M/mm3 Hgb 14.0 (11.8-15.2) gm/dl Hct 41.6 (35.5-45.6) % MCV 91 (84-94) fl MCH 31 (28-32) pg MCHC 34 (32-34) % RDW 14.0 (13.2-15.2) % Plt Count 260 (140-440) K/mm3 Add Manual Diff Complete Total Counted 100 Seg Neuts % (Manual) 78.0 H (40.0-70.0) % Band Neutrophils % 7.0 % Lymphocytes % (Manual) 8.0 L (13.4-35.0) % Reactive Lymphs % (Man) 0 % Monocytes % (Manual) 7.0 (0.0-7.3) % Eosinophils % (Manual) 0 (0.0-4.3) % Basophils % (Manual) 0 (0.0-1.8) % Metamyelocytes % 0 % Myelocytes % 0 % Promyelocytes % 0 % Blast Cells % 0 % Nucleated RBC % Not Reportable Seg Neutrophils # Man 18.7 H (1.8-7.7) K/mm3 Band Neutrophils # 1.7 K/mm3 Lymphocytes # (Manual) 1.9 (1.2-5.4) K/mm3 Abs React Lymphs (Man) 0.0 K/mm3 Monocytes # (Manual) 1.7 H (0.0-0.8) K/mm3 Eosinophils # (Manual) 0.0 (0.0-0.4) K/mm3 Basophils # (Manual) 0.0 (0.0-0.1) K/mm3 Metamyelocytes # 0.0 K/mm3 Myelocytes # 0.0 K/mm3 Promyelocytes # 0.0 K/mm3 Blast Cells # 0.0 K/mm3 WBC Morphology Not Reportable Hypersegmented Neuts Not Reportable Hyposegmented Neuts Not Reportable Hypogranular Neuts Not Reportable Smudge Cells Not Reportable Toxic Granulation Not Reportable Toxic Vacuolation Not Reportable Dohle Bodies Not Reportable Pelger-Huet Anomaly Not Reportable Andres Rods Not Reportable Platelet Estimate Consistent w auto Clumped Platelets Not Reportable Plt Clumps, EDTA Not Reportable Large Platelets Not Reportable Giant Platelets Not Reportable Platelet Satelliting Not Reportable Plt Morphology Comment Not Reportable RBC Morphology Normal Dimorphic RBCs Not Reportable Polychromasia Not Reportable Hypochromasia Not Reportable Poikilocytosis Not Reportable Anisocytosis Not Reportable Microcytosis Not Reportable Macrocytosis Not Reportable Spherocytes Not Reportable Pappenheimer Bodies Not Reportable Sickle Cells Not Reportable Target Cells Not Reportable Tear Drop Cells Not Reportable Ovalocytes Not Reportable Helmet Cells Not Reportable [place] Bodies Not Reportable [place] Rings Not Reportable Bishnu Cells Not Reportable Bite Cells Not Reportable Crenated Cell Not Reportable Elliptocytes Not Reportable Acanthocytes (Spur) Not Reportable Rouleaux Not Reportable Hemoglobin C Crystals Not Reportable Schistocytes Not Reportable Malaria parasites Not Reportable Toni Bodies Not Reportable Hem Pathologist Commnt No Sodium 136 L (137-145) mmol/L Potassium 4.9 (3.6-5.0) mmol/L Chloride 95.5 L (98-107) mmol/L Carbon Dioxide 27 (22-30) mmol/L Anion Gap 18 mmol/L BUN 21 H (9-20) mg/dL Creatinine 1.1 (0.8-1.5) mg/dL Estimated GFR > 60 ml/min BUN/Creatinine Ratio 19 % Glucose 109 H (75-100) mg/dL Lactic Acid (0.7-2.0) mmol/L Calcium 9.7 (8.4-10.2) mg/dL Total Creatine Kinase (55-170) units/L Troponin T < 0.010 (0.00-0.029) ng/mL NT-Pro-B Natriuret Pep 403.1 (0-900) pg/mL 05/02/18 05/02/18 Range/Units 11:30 11:30 WBC (4.5-11.0) K/mm3 RBC (3.65-5.03) M/mm3 Hgb (11.8-15.2) gm/dl Hct (35.5-45.6) % MCV (84-94) fl MCH (28-32) pg MCHC (32-34) % RDW (13.2-15.2) % Plt Count (140-440) K/mm3 Add Manual Diff Total Counted Seg Neuts % (Manual) (40.0-70.0) % Band Neutrophils % % Lymphocytes % (Manual) (13.4-35.0) % Reactive Lymphs % (Man) % Monocytes % (Manual) (0.0-7.3) % Eosinophils % (Manual) (0.0-4.3) % Basophils % (Manual) (0.0-1.8) % Metamyelocytes % % Myelocytes % % Promyelocytes % % Blast Cells % % Nucleated RBC % Seg Neutrophils # Man (1.8-7.7) K/mm3 Band Neutrophils # K/mm3 Lymphocytes # (Manual) (1.2-5.4) K/mm3 Abs React Lymphs (Man) K/mm3 Monocytes # (Manual) (0.0-0.8) K/mm3 Eosinophils # (Manual) (0.0-0.4) K/mm3 Basophils # (Manual) (0.0-0.1) K/mm3 Metamyelocytes # K/mm3 Myelocytes # K/mm3 Promyelocytes # K/mm3 Blast Cells # K/mm3 WBC Morphology Hypersegmented Neuts Hyposegmented Neuts Hypogranular Neuts Smudge Cells Toxic Granulation Toxic Vacuolation Dohle Bodies Pelger-Huet Anomaly Andres Rods Platelet Estimate Clumped Platelets Plt Clumps, EDTA Large Platelets Giant Platelets Platelet Satelliting Plt Morphology Comment RBC Morphology Dimorphic RBCs Polychromasia Hypochromasia Poikilocytosis Anisocytosis Microcytosis Macrocytosis Spherocytes Pappenheimer Bodies Sickle Cells Target Cells Tear Drop Cells Ovalocytes Helmet Cells [place]rens Bodies [place] Rings Bishnu Cells Bite Cells Crenated Cell Elliptocytes Acanthocytes (Spur) Rouleaux Hemoglobin C Crystals Schistocytes Malaria parasites Toni Bodies Hem Pathologist Commnt Sodium (137-145) mmol/L Potassium (3.6-5.0) mmol/L Chloride (98-107) mmol/L Carbon Dioxide (22-30) mmol/L Anion Gap mmol/L BUN (9-20) mg/dL Creatinine (0.8-1.5) mg/dL Estimated GFR ml/min BUN/Creatinine Ratio % Glucose (75-100) mg/dL Lactic Acid 1.50 (0.7-2.0) mmol/L Calcium (8.4-10.2) mg/dL Total Creatine Kinase 77 (55-170) units/L Troponin T (0.00-0.029) ng/mL NT-Pro-B Natriuret Pep (0-900) pg/mL - EKG Data -: EKG Interpreted by Ar - EKG Data 05/02/18 14:11 Sinus, 77 beats per minute, normal axis, normal intervals, low voltage, nondistended, appears unchanged from prior EKG from December 2017 - Radiology Data Radiology results: report reviewed, image reviewed X-ray of the chest is negative for acute disease - Medical Decision Making Differential diagnosis, including but not limited to: Pneumonia, bronchitis, viral syndrome, COPD exacerbation Assessment and plan: 53-year-old male who complains of fever, chills, cough, wheezing, shortness of breath, found to be tachypneic, found to be hypotensive, also found to be hypoxic on room air 88-89%, not typically oxygen dependent. Patient will be treated empirically for community-acquired pneumonia and sepsis. He was given IV fluids and appropriate supportive care, his vital signs much improved. He currently reports that he is feeling much better. I have discussed the case with his covering director of field sales, Dr. Negro, who will follow in consultation. Case was discussed with the Hospital physician, Dr. Llanes, accepted the patient to the medical service. Critical care attestation.: If time is entered above; I have spent that time in minutes in the direct care of this critically ill patient, excluding procedure time. ED Disposition Clinical Impression: Sepsis, Acute exacerbation of chronic obstructive pulmonary disease (COPD) Disposition: OP ADMIT IP TO THIS HOSP Is pt being admited?: Yes Condition: Fair
[2018-05-02] MEDS: LEVAQUIN 750MG/150ML 750 MG/150 ML BAG IV SCH (11:44)
[2018-05-02 13:38] LABS: Bilirubin,Urine NEG (Negative); Blood,Urine NEG (Negative); Color,Urine Amber (Yellow); Hyaline Casts,Urine 1 /LPF; Mucus,Urine FEW /HPF
--- NOTE | 2018-05-02 16:47 | Consultation ---
History of Present Illness Consult date: 05/02/18 Requesting physician: RADHA CISSE Reason for consult: COPD History of present illness: 53 y/o male, followed by Eliu, or at least has seen him once since discharge from hospital in Dec admitted with shortness of breath. 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 Came inside and had some improvement. Tuesday night, breathing got worse so came in Tuesday morning. CXR clear. Treated with IV steroids and abx and had some improvement. Past History Past Medical History: CAD, COPD, hypertension, hyperlipidemia Past Surgical History: Other (cath) Social history: no significant social history Family history: no significant family history Medications and Allergies Allergies Allergy/AdvReac Type Severity Reaction Status Date / Time Sulfa (Sulfonamide Allergy Severe Rash Verified 03/22/16 18:34 Antibiotics) oxytetracycline Allergy Unknown Verified 03/22/16 10:32 [From Terramycin] oxytetracycline HCl Allergy Unknown Verified 03/22/16 10:32 [From Terramycin] Penicillins AdvReac Severe Shortness Verified 03/22/16 18:34 of Breath Home Medications Medication Instructions Recorded Confirmed Last Taken Type Lisinopril [Zestril] 20 mg PO DAILY #0 03/22/16 05/02/18 05/02/18 History 20 mg Citalopram [Celexa] 20 mg PO QDAY 01/01/17 05/02/18 05/02/18 History 20 mg ISOSORBIDE MONOnitrate [Imdur ER] 30 mg PO DAILY #30 tab.er.24h 01/10/1805/02/18 Rx Metoprolol [Lopressor TAB] 100 mg PO BID #60 tablet 01/10/18 05/02/18 05/02/18 Rx 100 mg Pravastatin [Pravachol] 40 mg PO QHS #30 tablet 01/10/18 05/02/18 05/01/18 Rx 40 mg Ticagrelor [Brilinta] 90 mg PO BID #60 tablet 01/10/18 05/02/18 05/02/18 Rx 90 mg Aspirin [Adult Low Dose Aspirin EC] 81 mg PO DAILY 05/02/18 05/02/18 05/02/18 History Active Meds: Active Medications Acetaminophen (Tylenol) 650 mg PO Q6H PRN PRN Reason: Pain, Mild (1-3) Last Admin: 05/02/18 11:45 Dose: 650 mg Levofloxacin/Dextrose (Levaquin 750mg/150ml) 750 mg in 150 mls @ 100 mls/hr IV Q24HR [facility]; Protocol Last Admin: 05/02/18 11:44 Dose: 100 mls/hr Physical Examination Vital signs: Vital Signs Temp Pulse Resp BP Pulse Ox 98.4 F 79 18 95/51 90 05/02/18 05:46 05/02/18 05:46 05/02/18 05:46 05/02/18 05:46 05/02/18 05:46 General appearance: alert Eyes: non-icteric ENT: oropharynx moist Neck: supple Effort: mildly labored Ascultation: Bilateral: wheezes Percussion: Bilateral: not dull Cardiovascular: regular rate and rhythm Gastrointestinal: normoactive bowel sounds, soft, non-tender Integumentary: normal Extremities: no cyanosis Musculoskeletal: no deformities Gait: normal gait normal mental status, non-focal exam Results - Laboratory Findings CBC and BMP: 05/03/18 07:18 05/03/18 07:18 Abnormal lab findings: Abnormal Labs 05/02/18 05/02/18 07:15 07:15 WBC 24.0 H Seg Neuts % (Manual) 78.0 H Lymphocytes % (Manual) 8.0 L Seg Neutrophils # Man 18.7 H Monocytes # (Manual) 1.7 H Sodium 136 L Chloride 95.5 L BUN 21 H Glucose 109 H - Diagnostic Findings Chest x-ray: image reviewed Assessment and Plan 53 y/o male with COPD exacerbation. 1. Suggest changing IV steroids to 60q6 2. Long acting bronchodilator therapy 3. OOB to chair and ambulate as tolerated 4. Ok with abx therapy, most likely 5 days will be sufficient
[2018-05-02] MEDS ORDERED: PERCOCET 5/325 PO PRN (18:33)
[2018-05-02] MEDS ORDERED: MORPHINE IV PRN (18:33)
[2018-05-02] MEDS ORDERED: SODIUM CHLORIDE FLUSH SYRINGE 10 ML IV PRN (18:33)
[2018-05-02] MEDS ORDERED: ZOFRAN IV PRN (18:33)
[2018-05-02] MEDS ORDERED: DUONEB *Not for PRN Use IH (18:35)
[2018-05-02] MEDS ORDERED: D5NS 1,000 ML IV SCH (19:00)
[2018-05-02] MEDS ORDERED: LEVAQUIN 750MG/150ML 750 MG/150 ML BAG IV SCH (19:00)
[2018-05-02] MEDS: ZESTRIL PO SCH (20:34)
[2018-05-02] MEDS: celeXA PO SCH (20:34)
[2018-05-02] MEDS: PRAVACHOL PO SCH (22:10)
[2018-05-02] MEDS: LOPRESSOR PO SCH (22:10)
[2018-05-02] MEDS: PEPCID IV SCH (22:11)
[2018-05-02] MEDS: BRILINTA PO SCH (22:34)
[2018-05-02] MEDS: SODIUM CHLORIDE FLUSH SYRINGE 10 ML IV SCH (22:40)
--- NOTE | 2018-05-03 00:49 | Event Note ---
Date: 05/02/18 See History and physical in the reports Acute respiratory failure Sepsis
[2018-05-03] MEDS: DUONEB *Not for PRN Use IH SCH ×5 (02:26→20:38)
[2018-05-03 09:10] LABS: Hematocrit 43.5 % (35.5-45.6); Hemoglobin 14.1 gm/dl (11.8-15.2); Mean Corpuscular HGB Conc 32 % (32-34); Mean Corpuscular Hemoglobin 31 pg (28-32); Mean Corpuscular Volume 94 fl (84-94); Platelet Count 267 K/mm3 (140-440); Red Blood Count 4.62 M/mm3 (3.65-5.03)
--- NOTE | 2018-05-03 09:36 | History and Physical Report ---
CHIEF COMPLAINT: . HISTORY OF PRESENT ILLNESS: . PAST MEDICAL HISTORY: 1. COPD. 2. Depression. 3. Hyperlipidemia. 4. Coronary artery disease. CURRENT MEDICATIONS: . PAST SURGICAL HISTORY: . REVIEW OF SYSTEM: increasing shortness of breath, cough, fever and wheezing. Otherwise, review of systems negative. PHYSICAL EXAMINATION: GENERAL: Middle-aged male, in respiratory distress on BiPAP. VITAL SIGNS: Temperature is 97.4, pulse is 84, sats are 84% initially. Respiratory rate is 27. Mean blood pressure was 70. HEENT: Unremarkable. Pupils are equal and reactive. NECK: Supple, no lymphadenopathy, no thyromegaly. RESPIRATORY: The accessory muscles of respirations are prominent. Chest and respiratory: Bilateral inspiratory and expiratory rhonchi present. Diminished air entry present. CARDIOVASCULAR: S1, S2 heard. No gallop, no murmur, no rub. Apical impulse in left fifth intercostal space and midclavicular line. ABDOMEN: Soft and benign. No hepatosplenomegaly. No guarding, no rigidity. EXTREMITIES: No pedal edema. CENTRAL NERVOUS SYSTEM: Alert and oriented x 4, nonfocal exam. Chest x-ray: No acute infiltrate. LABORATORY DATA: White count is 24,000, hemoglobin is 14, hematocrit is 41.6. Electrolytes: Sodium is 136, potassium is 4.9, chloride is 95.5, BUN and creatinine is 21 and 1.1. Urine is normal. Glucose is 149. ASSESSMENT AND PLAN: 1. Acute respiratory failure secondary to possible community-acquired pneumonia and no infiltrates on the chest x-ray, high white count present. The patient to be treated as sepsis. Nebulizer treatments, BiPAP and intubation if necessary. IV Solu-Medrol also initiated. IV Levaquin initiated. 2. Sepsis, possible secondary to lower respiratory tract infection. No infiltrate on the chest x-ray. The patient initiated on IV Levaquin, IV Solu-Medrol, and DuoNebs. 3. Pneumonia, clinically, the patient initiated on antibiotics. 4. Coronary artery disease. The patient on Brilinta. To continue the same. 5. Hypertension. Continue lisinopril and metoprolol. 6. Hyperlipidemia. Continue pravastatin. 7. Depression. Continue citalopram 20 mg once a day. 8. Deep venous thrombosis prophylaxis, Lovenox 40 mg subcutaneous daily. [facility]# [id number] IRAM/LEO
[2018-05-03] MEDS: HALFPRIN EC PO SCH ×2 (09:42→10:15)
[2018-05-03] MEDS: IMDUR PO SCH ×2 (09:43→10:13)
[2018-05-03] MEDS: HABITROL TD SCH (09:44)
[2018-05-03 10:08] LABS: Band Neutrophils # (Manual) 0.7 K/mm3; Basophils % (Manual) 0 % (0.0-1.8); Eosinophils % (Manual) 0 % (0.0-4.3); Monocytes % (Manual) 0 % (0.0-7.3); RBC Morphology Normal; Total Cells Counted 100
[2018-05-03] MEDS: LOPRESSOR PO SCH (10:14)
[2018-05-03] MEDS: LEVAQUIN 750MG/150ML 750 MG/150 ML BAG IV SCH (10:14)
[2018-05-03] MEDS: celeXA PO SCH (10:15)
[2018-05-03] MEDS: PEPCID IV SCH ×2 (10:16→21:46)
[2018-05-03] MEDS: SODIUM CHLORIDE FLUSH SYRINGE 10 ML IV SCH ×2 (10:16→21:47)
[2018-05-03] MEDS: ZESTRIL PO SCH (10:16)
[2018-05-03 12:00] LABS: Alanine Aminotransferase 14 units/L (7-56); Albumin 3.7 g/dL (3.9-5); BUN/Creatinine Ratio 22; Blood Urea Nitrogen 20 mg/dL (9-20); Calcium 9.4 mg/dL (8.4-10.2); Hemolysis Index 0
[2018-05-03] MEDS: BRILINTA PO SCH ×2 (13:34→21:46)
--- NOTE | 2018-05-03 14:45 | Progress Note ---
Assessment and Plan 53 y/o male with COPD exacerbation. No new recs for today. 1. Suggest changing IV steroids to 60q6 2. Long acting bronchodilator therapy 3. OOB to chair and ambulate as tolerated 4. Ok with abx therapy, most likely 5 days will be sufficient Subjective Date of service: 05/03/18 Interval history: Feels better today. May be discharged tomorrow. Objective Vital Signs - 12hr 05/03/18 05/03/18 05/03/18 05:46 07:09 08:50 Temperature 97.5 F L 98.6 F Pulse Rate 70 70 Pulse Rate [ 70 Anterior Bilateral Throughout] Respiratory 24 18 Rate Respiratory 18 Rate [Anterior Bilateral Throughout] Blood Pressure 114/73 119/57 O2 Sat by Pulse 96 94 Oximetry 05/03/18 05/03/18 05/03/18 09:04 12:58 13:12 Temperature Pulse Rate Pulse Rate [ 73 68 70 Anterior Bilateral Throughout] Respiratory Rate Respiratory 20 18 18 Rate [Anterior Bilateral Throughout] Blood Pressure O2 Sat by Pulse Oximetry Constitutional: alert Eyes: non-icteric ENT: oropharynx moist Neck: supple Effort: mildly labored Ascultation: Bilateral: wheezes Percussion: Bilateral: not dull Cardiovascular: regular rate and rhythm Gastrointestinal: normoactive bowel sounds, soft, non-tender Integumentary: normal Extremities: no cyanosis Neurologic: normal mental status, non-focal exam CBC and BMP: 05/03/18 07:18 05/03/18 07:18 Abnormal lab findings: Abnormal Labs 05/02/18 05/02/18 05/02/18 07:15 07:15 17:58 WBC 24.0 H Seg Neuts % (Manual) 78.0 H Lymphocytes % (Manual) 8.0 L Seg Neutrophils # Man 18.7 H Monocytes # (Manual) 1.7 H Sodium 136 L Chloride 95.5 L BUN 21 H Glucose 109 H POC Glucose 149 H Albumin 05/03/18 05/03/18 07:18 07:18 WBC 24.8 H Seg Neuts % (Manual) 85.0 H Lymphocytes % (Manual) 12.0 L Seg Neutrophils # Man 21.1 H Monocytes # (Manual) Sodium Chloride BUN Glucose 153 H POC Glucose Albumin 3.7 L
--- NOTE | 2018-05-03 18:05 | Progress Note ---
Assessment and Plan Assessment and plan: --Acute hypoxic respiratory failure; secondary to COPD exacerbation, Continue oxygen titrated to O2 sats more than 90 % Nebulizers Siegrist is worse IV antibiotics inhallation steroids --Acute exacerbation of COPD; continue current management Tapering dose of steroids --Acute bronchitis/acute pneumonitis Empiric IV antibiotics and closely monitor --History of coronary artery disease; status post PCI Continue current cardiac medications, cardiology evaluation if needed --Dyslipidemia; continue lipid lowering medications low-cholesterol diet --Obesity; counseling exercise as tolerated weight reduction when medically stable --Ongoing tobacco use; smoking cessation counseling and nicotine patch as needed --DVT prophylaxis; Lovenox Closely monitor the patient and adjust management as needed Plan of care reviewed with the patient History Interval history: Patient seen and examined medical records reviewed Admitted with acute hypoxic respiratory failure secondary to COPD exacerbation On oxygen nebulizers and IV steroids and IV antibiotics Patient feels slightly better, continues to have mild shortness of breath and wheezing Denies chest pain Vital signs reviewed Hospitalist Physical - Constitutional Vitals: Temp Pulse Resp BP Pulse Ox 97.7 F 76 20 103/56 93 05/03/18 16:27 05/03/18 16:27 05/03/18 16:27 05/03/18 16:27 05/03/18 16:27 General appearance: Present: no acute distress, well-nourished, obese - EENT Eyes: Present: PERRL, EOM intact - Neck Neck: Present: supple, normal ROM - Respiratory Respiratory effort: normal Respiratory: bilateral: diminished, wheezing, negative: rales, rhonchi - Cardiovascular Rhythm: regular Heart Sounds: Present: S1 & S2 - Extremities Extremities: no ischemia, No edema - Abdominal General gastrointestinal: soft, non-tender, non-distended, normal bowel sounds - Integumentary Integumentary: Present: clear, warm - Psychiatric Psychiatric: appropriate mood/affect, cooperative - Neurologic Neurologic: CNII-XII intact, moves all extremities Results - Labs CBC & Chem 7: 05/03/18 07:18 05/03/18 07:18 Labs: Laboratory Last Values WBC 24.8 K/mm3 (4.5-11.0) H 05/03/18 07:18 RBC 4.62 M/mm3 (3.65-5.03) 05/03/18 07:18 Hgb 14.1 gm/dl (11.8-15.2) 05/03/18 07:18 Hct 43.5 % (35.5-45.6) 05/03/18 07:18 MCV 94 fl (84-94) 05/03/18 07:18 MCH 31 pg (28-32) 05/03/18 07:18 MCHC 32 % (32-34) 05/03/18 07:18 RDW 14.0 % (13.2-15.2) 05/03/18 07:18 Plt Count 267 K/mm3 (140-440) 05/03/18 07:18 Add Manual Diff Complete 05/03/18 07:18 Total Counted 100 05/03/18 07:18 Seg Neuts % (Manual) 85.0 % (40.0-70.0) H 05/03/18 07:18 Band Neutrophils % 3.0 % 05/03/18 07:18 Lymphocytes % (Manual) 12.0 % (13.4-35.0) L 05/03/18 07:18 Reactive Lymphs % (Man) 0 % 05/03/18 07:18 Monocytes % (Manual) 0 % (0.0-7.3) 05/03/18 07:18 Eosinophils % (Manual) 0 % (0.0-4.3) 05/03/18 07:18 Basophils % (Manual) 0 % (0.0-1.8) 05/03/18 07:18 Metamyelocytes % 0 % 05/03/18 07:18 Myelocytes % 0 % 05/03/18 07:18 Promyelocytes % 0 % 05/03/18 07:18 Blast Cells % 0 % 05/03/18 07:18 Nucleated RBC % Not Reportable 05/03/18 07:18 Seg Neutrophils # Man 21.1 K/mm3 (1.8-7.7) H 05/03/18 07:18 Band Neutrophils # 0.7 K/mm3 05/03/18 07:18 Lymphocytes # (Manual) 3.0 K/mm3 (1.2-5.4) 05/03/18 07:18 Abs React Lymphs (Man) 0.0 K/mm3 05/03/18 07:18 Monocytes # (Manual) 0.0 K/mm3 (0.0-0.8) 05/03/18 07:18 Eosinophils # (Manual) 0.0 K/mm3 (0.0-0.4) 05/03/18 07:18 Basophils # (Manual) 0.0 K/mm3 (0.0-0.1) 05/03/18 07:18 Metamyelocytes # 0.0 K/mm3 05/03/18 07:18 Myelocytes # 0.0 K/mm3 05/03/18 07:18 Promyelocytes # 0.0 K/mm3 05/03/18 07:18 Blast Cells # 0.0 K/mm3 05/03/18 07:18 WBC Morphology Not Reportable 05/03/18 07:18 Hypersegmented Neuts Not Reportable 05/03/18 07:18 Hyposegmented Neuts Not Reportable 05/03/18 07:18 Hypogranular Neuts Not Reportable 05/03/18 07:18 Smudge Cells Not Reportable 05/03/18 07:18 Toxic Granulation Not Reportable 05/03/18 07:18 Toxic Vacuolation Not Reportable 05/03/18 07:18 Dohle Bodies Not Reportable 05/03/18 07:18 Pelger-Huet Anomaly Not Reportable 05/03/18 07:18 Andres Rods Not Reportable 05/03/18 07:18 Platelet Estimate Appears normal 05/03/18 07:18 Clumped Platelets Not Reportable 05/03/18 07:18 Plt Clumps, EDTA Not Reportable 05/03/18 07:18 Large Platelets Not Reportable 05/03/18 07:18 Giant Platelets Not Reportable 05/03/18 07:18 Platelet Satelliting Not Reportable 05/03/18 07:18 Plt Morphology Comment Not Reportable 05/03/18 07:18 RBC Morphology Normal 05/03/18 07:18 Dimorphic RBCs Not Reportable 05/03/18 07:18 Polychromasia Not Reportable 05/03/18 07:18 Hypochromasia Not Reportable 05/03/18 07:18 Poikilocytosis Not Reportable 05/03/18 07:18 Anisocytosis Not Reportable 05/03/18 07:18 Microcytosis Not Reportable 05/03/18 07:18 Macrocytosis Not Reportable 05/03/18 07:18 Spherocytes Not Reportable 06/20/18 07:18 Pappenheimer Bodies Not Reportable 05/03/18 07:18 Sickle Cells Not Reportable 05/03/18 07:18 Target Cells Not Reportable 05/03/18 07:18 Tear Drop Cells Not Reportable 05/03/18 07:18 Ovalocytes Not Reportable 05/03/18 07:18 Helmet Cells Not Reportable 05/03/18 07:18 [place] Bodies Not Reportable 05/03/18 07:18 [place] Rings Not Reportable 05/03/18 07:18 Bishnu Cells Not Reportable 05/03/18 07:18 Bite Cells Not Reportable 05/03/18 07:18 Crenated Cell Not Reportable 05/03/18 07:18 Elliptocytes Not Reportable 05/03/18 07:18 Acanthocytes (Spur) Not Reportable 05/03/18 07:18 Rouleaux Not Reportable 05/03/18 07:18 Hemoglobin C Crystals Not Reportable 05/03/18 07:18 Schistocytes Not Reportable 05/03/18 07:18 Malaria parasites Not Reportable 05/03/18 07:18 Toni Bodies Not Reportable 05/03/18 07:18 Hem Pathologist Commnt No 05/03/18 07:18 Sodium 139 mmol/L (137-145) 05/03/18 07:18 Potassium 4.8 mmol/L (3.6-5.0) 05/03/18 07:18 Chloride 99.6 mmol/L (98-107) 05/03/18 07:18 Carbon Dioxide 24 mmol/L (22-30) 05/03/18 07:18 Anion Gap 20 mmol/L 05/03/18 07:18 BUN 20 mg/dL (9-20) 05/03/18 07:18 Creatinine 0.9 mg/dL (0.8-1.5) 05/03/18 07:18 Estimated GFR > 60 ml/min 05/03/18 07:18 BUN/Creatinine Ratio 22 % 05/03/18 07:18 Glucose 153 mg/dL (75-100) H 05/03/18 07:18 POC Glucose 149 (70-105) H 05/02/18 17:58 Hemoglobin A1c 5.6 % (4-6) 05/02/18 19:59 Lactic Acid 1.50 mmol/L (0.7-2.0) 05/02/18 11:30 Calcium 9.4 mg/dL (8.4-10.2) 05/03/18 07:18 Total Bilirubin 0.20 mg/dL (0.1-1.2) 05/03/18 07:18 AST 15 units/L (5-40) 05/03/18 07:18 ALT 14 units/L (7-56) 05/03/18 07:18 Alkaline Phosphatase 93 units/L (35-129) 05/03/18 07:18 Total Creatine Kinase 77 units/L (55-170) 05/02/18 11:30 Troponin T < 0.010 ng/mL (0.00-0.029) 05/02/18 07:15 NT-Pro-B Natriuret Pep 403.1 pg/mL (0-900) 05/02/18 07:15 Total Protein 7.1 g/dL (6.3-8.2) 05/03/18 07:18 Albumin 3.7 g/dL (3.9-5) L 05/03/18 07:18 Albumin/Globulin Ratio 1.1 % 05/03/18 07:18 Urine Color [place] (Yellow) 05/02/18 13:02 Urine Turbidity Clear (Clear) 05/02/18 13:02 Urine pH 5.0 (5.0-7.0) 05/02/18 13:02 Ur Specific [place] 1.020 (1.003-1.030) 05/02/18 13:02 Urine Protein 30 mg/dl mg/dL (Negative) 05/02/18 13:02 Urine Glucose (UA) Neg mg/dL (Negative) 05/02/18 13:02 Urine Ketones Neg mg/dL (Negative) 05/02/18 13:02 Urine Blood Neg (Negative) 05/02/18 13:02 Urine Nitrite Neg (Negative) 05/02/18 13:02 Urine Bilirubin Neg (Negative) 05/02/18 13:02 Urine Urobilinogen 2.0 mg/dL (<2.0) 05/02/18 13:02 Ur Leukocyte Esterase Neg (Negative) 05/02/18 13:02 Urine WBC (Auto) 2.0 /HPF (0.0-6.0) 05/02/18 13:02 Urine RBC (Auto) 2.0 /HPF (0.0-6.0) 05/02/18 13:02 U Epithel Cells (Auto) < 1.0 /HPF (0-13.0) 05/02/18 13:02 Hyaline Casts 1 /LPF 05/02/18 13:02 Urine Mucus Few /HPF 05/02/18 13:02
[2018-05-03] MEDS: LOVENOX SUB-Q SCH ×2 (21:46→21:55)
[2018-05-03] MEDS: PRAVACHOL PO SCH (21:46)
[2018-05-04] MEDS: LOPRESSOR PO SCH ×2 (01:53→10:41)
[2018-05-04 07:17] LABS: Hematocrit 41.5 % (35.5-45.6); Hemoglobin 13.7 gm/dl (11.8-15.2); Mean Corpuscular HGB Conc 33 % (32-34); Mean Corpuscular Hemoglobin 31 pg (28-32); Mean Corpuscular Volume 94 fl (84-94); Platelet Count 270 K/mm3 (140-440); Red Blood Count 4.42 M/mm3 (3.65-5.03); Red Cell Distribution Width 14.4 % (13.2-15.2)
[2018-05-04 07:37] LABS: BUN/Creatinine Ratio 23; Blood Urea Nitrogen 18 mg/dL (9-20); Calcium 9.5 mg/dL (8.4-10.2); Hemolysis Index 7
[2018-05-04 08:11] LABS: Basophils % (Manual) 0 % (0.0-1.8); Eosinophils % (Manual) 0 % (0.0-4.3); Total Cells Counted 100
[2018-05-04 08:12] LABS: RBC Morphology Normal
[2018-05-04 08:41] VITALS: BP 112/57
[2018-05-04] MEDS: DUONEB *Not for PRN Use IH SCH ×3 (08:54→19:23)
[2018-05-04] MEDS: LEVAQUIN 750MG/150ML 750 MG/150 ML BAG IV SCH (10:39)
[2018-05-04] MEDS: HALFPRIN EC PO SCH (10:40)
[2018-05-04] MEDS: BRILINTA PO SCH (10:40)
[2018-05-04] MEDS: celeXA PO SCH (10:40)
[2018-05-04] MEDS: PEPCID IV SCH (10:41)
[2018-05-04] MEDS: HABITROL TD SCH (10:41)
[2018-05-04] MEDS: IMDUR PO SCH (10:42)
--- NOTE | 2018-05-04 12:21 | Progress Note ---
Assessment and Plan 53 y/o male with COPD exacerbation. 1. Needs walk test to determine O2 sats while ambulating and possible need for home O2. 2. If able to be discharged today send out on prednisone 60 daily for 4 days, 40 daily for 4 days, 20 daily for 4 days then 10 daily for 4 days then stop. 3. Abx therapy for a total of 5 days. 4. No objection to discharge today if all needs can be met. Subjective Date of service: 05/04/18 Interval history: No acute events. Wants to go home. O2 sat documented at 93 on 2 liters. Getting IV abx therapy right now. Objective Vital Signs - 12hr 05/04/18 05/04/18 05/04/18 03:45 07:25 07:26 Temperature 97.5 F L 98.2 F Pulse Rate 70 74 Respiratory 16 19 Rate Blood Pressure 114/62 112/57 O2 Sat by Pulse 92 92 Oximetry 05/04/18 10:41 Temperature Pulse Rate 87 Respiratory Rate Blood Pressure 112/57 O2 Sat by Pulse Oximetry Constitutional: alert Eyes: non-icteric ENT: oropharynx moist Neck: supple Effort: mildly labored Ascultation: Bilateral: wheezes Percussion: Bilateral: not dull Cardiovascular: regular rate and rhythm Gastrointestinal: normoactive bowel sounds, soft, non-tender Integumentary: normal Extremities: no cyanosis Neurologic: normal mental status, non-focal exam CBC and BMP: 05/04/18 06:56 05/04/18 06:56 Abnormal lab findings: Abnormal Labs 05/02/18 05/02/18 05/02/18 07:15 07:15 17:58 WBC 24.0 H Seg Neuts % (Manual) 78.0 H Lymphocytes % (Manual) 8.0 L Seg Neutrophils # Man 18.7 H Lymphocytes # (Manual) Monocytes # (Manual) 1.7 H Sodium 136 L Chloride 95.5 L BUN 21 H Glucose 109 H POC Glucose 149 H Albumin 05/03/18 05/03/18 05/04/18 07:18 07:18 06:56 WBC 24.8 H 26.8 H Seg Neuts % (Manual) 85.0 H 94.0 H Lymphocytes % (Manual) 12.0 L 4.0 L Seg Neutrophils # Man 21.1 H 25.2 H Lymphocytes # (Manual) 1.1 L Monocytes # (Manual) Sodium Chloride BUN Glucose 153 H POC Glucose Albumin 3.7 L 05/04/18 06:56 WBC Seg Neuts % (Manual) Lymphocytes % (Manual) Seg Neutrophils # Man Lymphocytes # (Manual) Monocytes # (Manual) Sodium Chloride BUN Glucose 159 H POC Glucose Albumin
--- NOTE | 2018-05-04 15:29 | Discharge Summary ---
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 Hospitalization Condition: Fair Hospital course: --Acute hypoxic respiratory failure; secondary to COPD exacerbation, Continue oxygen titrated to O2 sats more than 90 % Nebulizers Siegrist is worse IV antibiotics inhallation steroids --Acute exacerbation of COPD; continue current management Tapering dose of steroids --Acute bronchitis/acute pneumonitis Empiric IV antibiotics and closely monitor --History of coronary artery disease; status post PCI Continue current cardiac medications, cardiology evaluation if needed --Dyslipidemia; continue lipid lowering medications low-cholesterol diet --Obesity; counseling exercise as tolerated weight reduction when medically stable --Ongoing tobacco use; smoking cessation counseling and nicotine patch as needed Disposition: DC-01 TO HOME OR SELFCARE Time spent for discharge: 35 min Core Measure Documentation - Palliative Care Palliative Care/ Comfort Measures: Not Applicable - Core Measures Any of the following diagnoses?: none Exam - Constitutional Vitals: Temp Pulse Resp BP Pulse Ox 98.2 F 87 19 112/57 92 05/04/18 07:26 05/04/18 10:41 05/04/18 07:26 05/04/18 10:41 05/04/18 07:25 General appearance: Present: no acute distress, well-nourished, obese - EENT Eyes: Present: PERRL, EOM intact - Neck Neck: Present: supple, normal ROM - Respiratory Respiratory effort: normal Respiratory: bilateral: diminished, wheezing, negative: rales, rhonchi - Cardiovascular Rhythm: regular Heart Sounds: Present: S1 & S2 - Extremities Extremities: no ischemia, No edema - Abdominal General gastrointestinal: Present: soft, non-tender, non-distended, normal bowel sounds - Integumentary Integumentary: Present: clear, warm - Musculoskeletal Musculoskeletal: strength equal bilaterally, generalized weakness - Psychiatric Psychiatric: appropriate mood/affect, cooperative - Neurologic Neurologic: CNII-XII intact, moves all extremities Plan Activity: no restrictions Diet: other (cardiac diet) Special Instructions: smoking cessation Additional Instructions: Smoking cessation counseling. Exercise as tolerated and weight reduction when medically stable Follow up with: PRIMARY CARE, [Primary Care Provider] - 3-5 Days SAMARA MARTINI MD [Staff Physician] - 7 Days Forms: Work/School Release Form Prescriptions: ALBUTEROL Inhaler [ProAir HFA Inhaler] 2 puff IH QID PRN #1 inhalation PRN Reason: Shortness Of Breath Levofloxacin [Levaquin] 750 mg PO QDAY #2 tablet Nicotine [Habitrol] 21 mg TD QDAY #30 patch predniSONE [Deltasone] 6 tab PO .TAPER #52 tablet
== END 2018-05-04 16:50 | disposition home or self-care (01) | DRG 871 ==
LOC: ED 05:47 → 4A 11:49 → 3A 20:09
PROVIDERS: ADMIT Internal Medicine; ATTEND Internal Medicine
DX: A41.9 Sepsis, unspecified organism (principal); J18.9 Pneumonia, unspecified organism; J96.01 Acute respiratory failure with hypoxia; J44.0 Chronic obstructive pulmonary disease with (acute) lower respiratory infection; J44.1 Chronic obstructive pulmonary disease with (acute) exacerbation; Z88.0 Allergy status to penicillin; Z88.2 Allergy status to sulfonamides; Z88.8 Allergy status to other drugs, medicaments and biological substances; I25.2 Old myocardial infarction; Z79.82 Long term (current) use of aspirin; Z79.899 Other long term (current) drug therapy; E78.00 Pure hypercholesterolemia, unspecified; F17.200 Nicotine dependence, unspecified, uncomplicated; I25.10 Atherosclerotic heart disease of native coronary artery without angina pectoris; E66.9 Obesity, unspecified; Z68.34 Body mass index [BMI] 34.0-34.9, adult; Z71.3 Dietary counseling and surveillance; J20.9 Acute bronchitis, unspecified
CPT/HCPCS: 36415; 71046; 80048; 80053; 81001; 82140; 82550; 82962; 83036; 83880; 84484; 85007; 85025; 87040; 87086; 93005; 93010; 94640; 94760; 96361; 96365; 96375; A9270-GY; J1650; J1956; J2930; J7030

== ENCOUNTER 2018-07-27 07:36 | Outpatient (CLI) | payer BC ==
--- NOTE | 2018-07-27 07:57 | XRay Report ---
CHEST XRAY, 2 VIEWS: History: Short of breath, wheezing, COPD. Findings: There is mild diffuse interstitial coarsening. The lungs are hyperexpanded but clear. No infiltrate, pleural fluid or pneumothorax is detected. The cardiac silhouette and pulmonary vasculature are within normal limits for technique. The bony thorax is unremarkable. IMPRESSION: Changes consistent with COPD. No acute cardiopulmonary process. No change since 05/02/18.
== END 2018-07-27 07:37 | disposition home or self-care (01) ==
LOC: XRAY 07:36
PROVIDERS: ATTEND Internal Medicine Critical Care Medicine
DX: J44.1 Chronic obstructive pulmonary disease with (acute) exacerbation (principal); I10 Essential (primary) hypertension; E66.9 Obesity, unspecified; F17.210 Nicotine dependence, cigarettes, uncomplicated
CPT/HCPCS: 71046

== ENCOUNTER 2018-08-24 11:00 | Outpatient (CLI) | payer BC | END 2018-08-24 11:01 | disposition home or self-care (01) | LOC: SLR 11:00 | PROVIDERS: ATTEND Internal Medicine Critical Care Medicine | DX: G47.33 Obstructive sleep apnea (adult) (pediatric) (principal); G47.61 Periodic limb movement disorder; R40.0 Somnolence; R06.83 Snoring; E66.9 Obesity, unspecified; I10 Essential (primary) hypertension; J44.9 Chronic obstructive pulmonary disease, unspecified | CPT/HCPCS: 95810 ==

== ENCOUNTER 2018-11-27 06:24 | Outpatient (CLI) | payer BC ==
[2018-11-27 06:53] LABS: Hematocrit 46.5 % (35.5-45.6); Hemoglobin 15.9 gm/dl (11.8-15.2); Mean Corpuscular HGB Conc 34 % (32-34); Mean Corpuscular Volume 90 fl (84-94); Platelet Count 364 K/mm3 (140-440); Red Blood Count 5.15 M/mm3 (3.65-5.03)
[2018-11-27 07:11] LABS: Alanine Aminotransferase 22 units/L (7-56); BUN/Creatinine Ratio 17; Blood Urea Nitrogen 15 mg/dL (9-20); Calcium 9.8 mg/dL (8.4-10.2); Hemolysis Index 12; LDL Cholesterol,Direct 153 mg/dL (50-130)
[2018-11-27 07:37] LABS: Chol/HDL Ratio 5.21 %; HDL Cholesterol 37 mg/dL (40-59)
== END 2018-11-27 06:25 | disposition home or self-care (01) ==
LOC: LAB 06:24
PROVIDERS: ATTEND Family Medicine
DX: I10 Essential (primary) hypertension (principal); E78.5 Hyperlipidemia, unspecified; J44.9 Chronic obstructive pulmonary disease, unspecified; E78.00 Pure hypercholesterolemia, unspecified; Z87.891 Personal history of nicotine dependence
CPT/HCPCS: 36415; 80053; 80061; 85027

== ENCOUNTER 2019-06-06 06:14 | Outpatient (CLI) | payer BC ==
[2019-06-06 07:08] LABS: Alanine Aminotransferase 23 units/L (7-56); BUN/Creatinine Ratio 19; Blood Urea Nitrogen 15 mg/dL (9-20); Calcium 9.4 mg/dL (8.4-10.2); Chol/HDL Ratio 7.41 %; HDL Cholesterol 24 mg/dL (40-59); Hemolysis Index 0; LDL Cholesterol,Direct 127 mg/dL (50-130)
== END 2019-06-06 06:15 | disposition home or self-care (01) ==
LOC: LAB 06:14
PROVIDERS: ATTEND Family Medicine
DX: Z12.5 Encounter for screening for malignant neoplasm of prostate (principal); I10 Essential (primary) hypertension; E78.2 Mixed hyperlipidemia; J44.9 Chronic obstructive pulmonary disease, unspecified; E78.00 Pure hypercholesterolemia, unspecified
CPT/HCPCS: 36415; 80053; 80061; 84153; 84443

== ENCOUNTER 2019-08-22 07:43 | Outpatient (CLI) | payer BC ==
--- NOTE | 2019-08-22 13:38 | Cat Scan Report ---
CT CHEST WITHOUT CONTRAST INDICATION / CLINICAL INFORMATION: LUNG CANCER SCREENING/C34.3)C34.3 Malignant neoplasm of lower lob . TECHNIQUE: Axial CT images were obtained through the chest without contrast. Sagittal and coronal reformatted im ages. All CT scans at this location are performed using CT dose reduction for ALARA by means of autom ated exposure control. COMPARISON: None available. FINDINGS: HEART: Heart size is normal. Mild to moderate coronary artery calcifications are noted. No pericardia l effusion. THORACIC AORTA: No significant abnormality. MEDIASTINUM and NERIS: No significant abnormality. LUNGS: Mild to moderate centrilobular emphysematous changes are identified in both upper lung zones. There is no evidence for suspicious nodule, mass, interstitial lung disease or infiltrate. Minor subp leural scarring is noted in the lateral right lower lobe. PLEURA: No significant pleural effusion. No pneumothorax. SKELETAL SYSTEM: Intact. Lower anterior cervical fusion is partially imaged. No suspicious bony lesio n is identified UPPER ABDOMEN: No significant abnormality. ADDITIONAL FINDINGS: None. IMPRESSION: Emphysematous changes. No suspicious thoracic nodule, mass or adenopathy. Signer Name: Skinny Jacinto Jr, MD Signed: 08/22/2019 1:34 PM Workstation Name: [id number]
== END 2019-08-22 07:44 | disposition home or self-care (01) ==
LOC: CT 07:43
PROVIDERS: ATTEND Internal Medicine Critical Care Medicine
DX: Z12.2 Encounter for screening for malignant neoplasm of respiratory organs (principal); C34.31 Malignant neoplasm of lower lobe, right bronchus or lung; C34.32 Malignant neoplasm of lower lobe, left bronchus or lung; J43.9 Emphysema, unspecified
CPT/HCPCS: 71250

== ENCOUNTER 2019-09-25 07:13 | Day surgery (SDC) | payer BC ==
[~2019-09-25 07:13] MED LIST changes: -PROVENTIL IH ONE; +SODIUM CHLORIDE 0.9% 1000 ML 1,000 ML IV SCH
[2019-09-25] MEDS ORDERED: WATER FOR IRRIG STERILE 250 ML BOTTLE IR ONE (07:41)
--- NOTE | 2019-09-25 08:05 | Anesthesia Day of Surgery ---
Anesthesia Day of Surgery - Day of Surgery Patient Examined: Yes Patient H&P Reviewed: Yes Patient is NPO: Yes
--- NOTE | 2019-09-25 08:10 | Anesthesia Consultation ---
Anesthesia Consult and Med Hx Date of service: 09/25/19 - Airway ROM Head & Neck: Adequate (S/P ACDF 3 levels) Mental/Hyoid Distance: Adequate Mallampati Class: Class III Intubation Access Assessment: Probably Good - Pulmonary Exam CTA: No (Expiratory wheezing and RLL rhonchi) - Cardiac Exam Cardiac Exam: RRR - Pre-Operative Health Status ASA Pre-Surgery Classification: ASA3 Proposed Anesthetic Plan: MAC - Pulmonary Hx Smoking: Yes (2ppd) Hx Asthma: Yes Hx Respiratory Symptoms: Yes (VAZQUEZ) COPD: Yes Hx Pneumonia: Yes (Had a chest tube inserted) Hx Sleep Apnea: Yes (Room air Sp02 [id number]) - Cardiovascular System Hx Hypertension: Yes (Saw supervisor ride assembly two weeks ago and ok per pt) Hx Coronary Artery Disease: Yes (Stent x 1 2016) Hx Heart Attack/AMI: Yes (AMI 2017) - Central Nervous System Hx Psychiatric Problems: Yes (Anxiety/Depression) - Endocrine Hx End Stage Renal Disease: No
[2019-09-25] MEDS ORDERED: IPRATROPIUM/ALBUTEROL SULFATE 3 ML AMPUL.NEB IH NR (08:15)
[2019-09-25] MEDS ORDERED: LIDOCAINE (2%) 20 MG/1 ML VIAL 20 ML MDV INFILTRATI ONE (08:38)
[2019-09-25] MEDS ORDERED: PROPOFOL 200 MG/20 ML VIAL IV ONE ×4 (08:39→11:17)
[2019-09-25] MEDS ORDERED: ALBUTEROL 8.5 GM INHALATION IH ONE (08:47)
[2019-09-25] MEDS ORDERED: WATER FOR IRRIG STERILE 1,000 ML BOTTLE ONE (08:54)
[2019-09-25] MEDS ORDERED: EPINEPHrine 1:10,000 1 MG/10 ML SYRINGE ONE (10:17)
[2019-09-25] MEDS ORDERED: EPINEPHrine 1:10,000 1 MG/10 ML SYRINGE IV ONE (10:18)
[2019-09-25] MEDS ORDERED: LIDOCAINE 2% UROJECT 10 ML JELLY ONE (11:01)
--- NOTE | 2019-09-25 11:11 | Short Stay Summary ---
Short Stay Documentation Date of service: 09/25/19 Narrative H&P: Patient presents for diagnostic colonoscopy for rectal bleeding and rectal pain. No prior studies. FH of colon polyps is noted. - History Past Medical History: CAD, COPD, other (Obesity) Past Surgical History: Other (Spinal surgery) Social history: , lives with family, smoking - Allergies and Medications Current Medications: Allergies Sulfa (Sulfonamide Antibiotics) Allergy (Severe, Verified 03/22/16 18:34) Rash oxytetracycline [From Terramycin] Allergy (Verified 03/22/16 10:32) Unknown oxytetracycline HCl [From Terramycin] Allergy (Verified 03/22/16 10:32) Unknown Penicillins Adverse Reaction (Severe, Verified 03/22/16 18:34) Shortness of Breath Home Medications Medication Instructions Recorded Confirmed Last Taken Type ALBUTEROL Inhaler (OR & NICU) 2 puff IH QID PRN #1 inhalation 08/17/18 Unknown Rx [ProAir HFA Inhaler] Arformoterol Nebu [Brovana Nebu] 15 mcg IH Q12HRT ml 08/17/18 Unknown Rx Aspirin [Adult Low Dose Aspirin EC] 81 mg PO DAILY #30 tablet.dr 08/17/18 Unknown Rx Benzonatate [Tessalon Perles] 100 mg PO Q8HR capsule 08/17/18 Unknown Rx Budesonide [Pulmicort Respules] 0.5 mg IH Q12HRT #30 nebu 08/17/18 Unknown Rx Citalopram [Celexa] 20 mg PO QDAY #30 tablet 08/17/18 Unknown Rx ISOSORBIDE MONOnitrate [Imdur ER] 30 mg PO DAILY #30 tablet 08/17/18 Unknown Rx Ipratropium/Albuterol Sulfate 1 ampul IH Q6HRT #30 ampul.neb 08/17/18 Unknown Rx [DUONEB *Not for PRN Use*] Lisinopril [Zestril TAB] 20 mg PO DAILY #30 tablet 08/17/18 Unknown Rx Metoprolol [Lopressor TAB] 100 mg PO BID #60 tablet 08/17/18 Unknown Rx Pravastatin [Pravachol] 40 mg PO QHS #30 tablet 08/17/18 Unknown Rx Symbicort 160-4.5 Mcg Inhaler 1 puff INHALATION BID #30 08/17/18 Unknown Rx Ticagrelor [Brilinta] 90 mg PO BID #60 tablet 08/17/18 Unknown Rx levoFLOXacin [Levaquin] 750 mg PO QDAY #10 tablet 08/17/18 Unknown Rx oxyCODONE /ACETAMINOPHEN [Percocet 1 tab PO Q4H PRN #8 tablet 08/17/18 Unknown Rx 5/325 mg] predniSONE [Prednisone] 10 mg PO DAILY #40 tablet 08/17/18 Unknown Rx Active Medications Sodium Chloride (Nacl 0.9% 1000 Ml) 1,000 mls @ 50 mls/hr IV DIRECT VERÓNICA Last Admin: 09/25/19 08:26 Dose: 50 mls/hr Documented by: - Physical exam General appearance: no acute distress, well-nourished, obese Integumentary: no rash, no growths, no abnormal pigmentation HEENT: Atraumatic, PERRLA, EOMI, Mucous membr. moist/pink Lungs: Clear to auscultation, Normal air movement Breasts: deferred Heart: Regular rate, Normal S1, Normal S2, No murmurs Gastrointestinal: normoactive bowel sounds, no tenderness, no distended, no masses, no guarding, no organomegaly, obese Male Genitourinary: deferred Rectal Exam: deferred, normal exam-external/orifice, no mass Extremities: no ischemia, pulses intact, pulses symmetrical, No edema, normal temperature, normal color, Full ROM Neurological: Normal gait, Normal speech, Strength at 5/5 X4 ext, Normal tone, Sensation intact, Cranial nerves 3-12 NL, Reflexes 2+ - Brief post op/procedure progress note Date of procedure: 09/25/19 Findings: see dictation Estimated blood loss: none Pathology: list (1. biopsies of ulcer on ICV, 2. proximal descending colon polyp, piecemeal resection 3. rectal polyps) Specimen disposition: to lab Condition: stable - Disposition Condition at discharge: Good Disposition: DC-01 TO HOME OR SELFCARE - Discharge Diagnoses (1) Rectal bleeding Status: Acute Short Stay Discharge Plan Activity: other (No Plavix or Brillinta for 7 days. No NSAIDS for 7 days except take low dose ASA 81mg daily starting today. No driving for 24 hours) Weight Bearing Status: Weight Bear as Tolerated Diet: regular Follow up with: DREW FREEMAN MD [Primary Care Provider] - 7 Days
--- NOTE | 2019-09-25 11:21 | Operative Report ---
Operative Report Operative Report: Date of procedure: 09/25/2019 Preprocedure diagnosis: Rectal bleeding Post procedure diagnosis: Large proximal descending colon polyp. 2 medium size rectal polyps and internal hemorrhoids. Procedure: Colonoscopy to the cecum with epinephrine injection and piecemeal resection by snare cautery of the proximal descending colon polyp. Tattoo placed just proximal to the descending colon polyp. Snare cautery resection of 2 rectal polyps one requiring epinephrine injection for a long stalk. Banding of internal hemorrhoids. Endoscopist: Dr. Santiago Anesthesia: Monitored anesthesia care per anesthesia department Estimated blood loss: 0 Medications: Monitored anesthesia care. See separate report by anesthesia for details. After careful discussion of the nature and purpose of the procedure as well as details of the technique risks benefits and alternatives the patient gave consent. Please see recent history and physical from the office. The patient was placed in the left lateral decubitus position and medicated per anesthesia. A rectal exam was performed sphincter tone was normal there were no masses palpable. The Olympus colonoscope was passed transanally and advanced under continuous direct vision without difficulty to the cecum. The colon was well prepared. The cecum was normal. The ascending colon was normal and on forward and retroflexed views. The transverse colon was normal. There was a large, 3 cm polyp partially on a broad stalk in the proximal descending colon. The polyp was injected with epinephrine due to the large, thick stalk. This was followed by piecemeal resection of this lesion by snare cautery and subsequent placement of tattoos just proximal to the polyp site. The sigmoid colon was normal. The rectum revealed 2 polyps on stalks, one with a larger stalk. The lesion on the larger stalk was injected with epinephrine followed by snare cautery resection. A smaller polyp was removed by snare cautery resection. All polyps were retrieved. No bleeding was encountered. 2-3+ size internal hemorrhoids were present and seen on retroflexed view with the scope. The rectum was otherwise normal. The scope was removed followed by reintroduction of an EGD scope loaded with the banding device. 4 bands were placed subsequently around the hemorrhoids just above the dentate line. The procedure was well-tolerated overall and the patient was observed in recovery. Conclusions: 1. Large proximal descending colon polyp on a thick stalk, partially. The lesion required piecemeal resection, epinephrine injection and subsequent tattooing proximal to the lesion. Polyp is suspicious for possibly containing malignancy. 2. 2 medium size size rectal polyps 6-8 mm in size, one on a large stalk requiring epinephrine injection. 3. Internal hemorrhoids- status post banding 4. Plan: Await pathology. The patient will call in 1 week. Consideration of surgical resection of the larger lesion if malignancy is proven or significant high-grade dysplasia in light of the absence of a stalk on part of the lesion. If no high-grade dysplasia or malignancy is present, follow-up colonoscopy in 6 months. Signed electronically: Santana Santiago M.D.
[2019-09-25 11:45] VITALS: BP 153/81
--- NOTE | 2019-09-25 13:42 | Post Anesthesia Evaluation ---
- Post Anesthesia Evaluation Patient Participated: Yes Airway Patent: Yes Stable Respiratory Function: Yes Nausea/Vomiting: No Temp > 96.8F: Yes Pain Manageable: Yes Adequeate Hydration: Yes Anesthesia Complications: No Block Receding Appropriately: Not Applicable Patient on Ventilator: No
[2019-09-26] MEDS ORDERED: ONDANSETRON 4 MG/2 ML INJ ONE (11:00)
[2019-09-26] MEDS ORDERED: KETOROLAC 30 MG/1 ML INJ ONE (11:00)
[2019-09-26] MEDS ORDERED: ROCURONIUM 50 MG/5 ML INJ IV ONE (11:00)
== END 2019-09-25 07:14 | disposition home or self-care (01) ==
LOC: GIO 07:13
PROVIDERS: ATTEND Internal Medicine Gastroenterology
DX: K62.5 Hemorrhage of anus and rectum (principal); D12.4 Benign neoplasm of descending colon; D12.8 Benign neoplasm of rectum; K64.8 Other hemorrhoids; K52.89 Other specified noninfective gastroenteritis and colitis; K62.89 Other specified diseases of anus and rectum; G47.33 Obstructive sleep apnea (adult) (pediatric); I25.2 Old myocardial infarction; F32.9 Major depressive disorder, single episode, unspecified; F41.9 Anxiety disorder, unspecified; E66.9 Obesity, unspecified; J44.9 Chronic obstructive pulmonary disease, unspecified; I25.10 Atherosclerotic heart disease of native coronary artery without angina pectoris; Z88.2 Allergy status to sulfonamides; Z88.0 Allergy status to penicillin; Z83.71 Family history of colonic polyps; F17.203 Nicotine dependence unspecified, with withdrawal; Z79.82 Long term (current) use of aspirin; Z79.4 Long term (current) use of insulin; Z88.8 Allergy status to other drugs, medicaments and biological substances; Z91.89 Other specified personal risk factors, not elsewhere classified; Z68.38 Body mass index [BMI] 38.0-38.9, adult; Z98.61 Coronary angioplasty status; Z78.9 Other specified health status
CPT/HCPCS: 45381; 45385; 45398; 88305; 94640; J0171; J2704; J7030; J1885; J2405

== ENCOUNTER 2019-09-25 22:29 | Inpatient (IN) | payer BC ==
[2019-09-26] MEDS ORDERED: ONDANSETRON 4 MG/2 ML INJ ONE ×2 (00:29→13:24)
[2019-09-26] MEDS ORDERED: MORPHINE 4 MG/1 ML INJ ONE (00:29)
[2019-09-26] MEDS ORDERED: SODIUM CHLORIDE 0.9% 1000 ML 3,000 ML ONE (00:30)
[2019-09-26] MEDS ORDERED: CEFEPIME/NS 2 GM/100 ML 2 GM/100 ML BAG IV ONE (00:32)
[2019-09-26] MEDS ORDERED: metroNIDAZOLE/NS 500 MG/100 ML 500 MG/100 ML BAG IV ONE (00:32)
[2019-09-26] MEDS ORDERED: ACETAMINOPHEN 500 MG TAB ONE (00:46)
[2019-09-26] MEDS ORDERED: HYDROmorphone 1 MG/1 ML INJ ONE ×5 (01:33→12:51)
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
[2019-09-26] MEDS ORDERED: ACETAMINOPHEN 325 MG TAB PO PRN (05:22)
[2019-09-26] MEDS ORDERED: ONDANSETRON 4 MG/2 ML INJ IV PRN ×2 (05:22→11:35)
[2019-09-26] MEDS ORDERED: DEXTROSE 50% IN WATER (25GM) 50 ML SYRINGE IV PRN (05:22)
[2019-09-26] MEDS ORDERED: MORPHINE 4 MG/1 ML INJ IV PRN (05:22)
[2019-09-26] MEDS ORDERED: metroNIDAZOLE/NS 500 MG/100 ML 500 MG/100 ML BAG IV SCH ×2 (06:00→10:00)
--- NOTE | 2019-09-26 07:24 | History and Physical Report ---
History of Present Illness Date of examination: 09/26/19 Date of admission: 09/26/19 Chief complaint: Abdominal pain History of present illness: Patient is a 54-year-old white male with known history of coronary artery disease who had colonoscopy yesterday presented to the emergency room today complaining of abdominal pain. Abdominal pain is said to be generalized and more in the left lower abdomen. He has been having nausea vomiting but denies any diarrhea. Denies any blood or bright red blood per rectum, Past History Past Medical History: CAD Past Surgical History: Other (Cardiac stent placement, arthroscopic knee surgery) Social history: smoking (Smokes 2 packs/day), alcohol abuse (Drinks 2 beers daily) Medications and Allergies Allergies Allergy/AdvReac Type Severity Reaction Status Date / Time Sulfa (Sulfonamide Allergy Severe Rash Verified 03/22/16 18:34 Antibiotics) oxytetracycline Allergy Unknown Verified 03/22/16 10:32 [From Terramycin] oxytetracycline HCl Allergy Unknown Verified 03/22/16 10:32 [From Terramycin] Penicillins AdvReac Severe Shortness Verified 03/22/16 18:34 of Breath Home Medications Medication Instructions Recorded Confirmed Last Taken Type ALBUTEROL Inhaler (OR & NICU) 2 puff IH QID PRN #1 inhalation 08/17/18 Unknown Rx [ProAir HFA Inhaler] Arformoterol Nebu [Brovana Nebu] 15 mcg IH Q12HRT ml 08/17/18 Unknown Rx Aspirin [Adult Low Dose Aspirin EC] 81 mg PO DAILY #30 tablet.dr 08/17/18 Unknown Rx Benzonatate [Tessalon Perles] 100 mg PO Q8HR capsule 08/17/18 Unknown Rx Budesonide [Pulmicort Respules] 0.5 mg IH Q12HRT #30 nebu 08/17/18 Unknown Rx Citalopram [Celexa] 20 mg PO QDAY #30 tablet 08/17/18 Unknown Rx ISOSORBIDE MONOnitrate [Imdur ER] 30 mg PO DAILY #30 tablet 08/17/18 Unknown Rx Ipratropium/Albuterol Sulfate 1 ampul IH Q6HRT #30 ampul.neb 08/17/18 Unknown Rx [DUONEB *Not for PRN Use*] Lisinopril [Zestril TAB] 20 mg PO DAILY #30 tablet 08/17/18 Unknown Rx Metoprolol [Lopressor TAB] 100 mg PO BID #60 tablet 08/17/18 Unknown Rx Pravastatin [Pravachol] 40 mg PO QHS #30 tablet 08/17/18 Unknown Rx Symbicort 160-4.5 Mcg Inhaler 1 puff INHALATION BID #30 08/17/18 Unknown Rx levoFLOXacin [Levaquin TAB] 750 mg PO QDAY #10 tablet 08/17/18 Unknown Rx oxyCODONE /ACETAMINOPHEN [Percocet 1 tab PO Q4H PRN #8 tablet 08/17/18 Unknown Rx 5/325 mg] predniSONE [Prednisone] 10 mg PO DAILY #40 tablet 08/17/18 Unknown Rx Active Meds: Active Medications Acetaminophen (Tylenol) 650 mg PO Q4H PRN PRN Reason: Pain MILD(1-3)/Fever >100.5/ROMANO Dextrose (D50w (25gm) Syringe) 50 ml IV Q30MIN PRN; Protocol PRN Reason: Hypoglycemia Hydromorphone HCl (Dilaudid) 1 mg IV Q4HR PRN PRN Reason: Pain , Severe (7-10) Levofloxacin/Dextrose (Levaquin 750mg/150ml) 750 mg in 150 mls @ 100 mls/hr IV Q24HR [facility]; Protocol Metronidazole (Flagyl 500 Mg/100 Ml) 500 mg in 100 mls @ 100 mls/hr IV Q8H [facility]; Protocol Insulin Human Regular (Humulin R) 0 units SUB-Q ACHS [facility]; Protocol Ondansetron HCl (Zofran) 4 mg IV Q8H PRN PRN Reason: Nausea And Vomiting Sodium Chloride (Sodium Chloride Flush Syringe 10 Ml) 10 ml IV BID [facility] Sodium Chloride (Sodium Chloride Flush Syringe 10 Ml) 10 ml IV PRN PRN PRN Reason: LINE FLUSH Review of Systems Constitutional: fever Gastrointestinal: nausea, vomiting Exam - Constitutional Vitals: Temp Pulse Resp BP Pulse Ox 102.3 F H 114 H 31 H 134/61 91 09/25/19 23:55 09/26/19 05:16 09/26/19 06:00 09/26/19 06:00 09/26/19 06:00 - EENT Eyes: Present: PERRL, EOM intact ENT: hearing intact, clear oral mucosa, dentition normal - Neck Neck: Present: supple, normal ROM - Respiratory Respiratory effort: normal Respiratory: bilateral: CTA - Cardiovascular Rhythm: regular Heart Sounds: Present: S1 & S2 - Extremities Extremities: no ischemia, pulses intact, No edema Peripheral Pulses: within normal limits - Abdominal General gastrointestinal: Present: soft, tender, non-distended, distended (Mildly distended) Localized gastrointestinal: tender: LLQ - Integumentary Integumentary: Present: clear, warm, dry - Musculoskeletal Musculoskeletal: strength equal bilaterally - Psychiatric Psychiatric: appropriate mood/affect, intact judgment & insight, cooperative - Neurologic Neurologic: CNII-XII intact, moves all extremities Assessment and Plan - Patient Problems (1) Diverticulitis Current Visit: Yes Status: Acute Plan to address problem: Patient placed on empiric IV antibiotics and also on IV fluid. He has been placed on IV Dilaudid as needed for pain (2) DVT prophylaxis Current Visit: No Status: Acute Plan to address problem: Patient on subcutaneous heparin. (3) Full code status Current Visit: Yes Status: Acute
[2019-09-26 07:47] LABS: Hematocrit 46.9 % (35.5-45.6); Hemoglobin 15.8 gm/dl (11.8-15.2); Mean Corpuscular HGB Conc 34 % (32-34); Mean Corpuscular Volume 93 fl (84-94); Platelet Count 250 K/mm3 (140-440); Red Blood Count 5.07 M/mm3 (3.65-5.03); Red Cell Distribution Width 14.1 % (13.2-15.2)
[2019-09-26 07:53] LABS: Eosinophils % (Manual) 0 % (0.0-4.3); Total Cells Counted 100
[2019-09-26 07:54] LABS: Band Neutrophils # (Manual) 1.1 K/mm3; Platelet Estimate Consistent w Auto; RBC Morphology Normal
[2019-09-26] MEDS: INSULIN REGULAR, HUMAN 100 UNITS/1 ML SUB-Q SCH ×2 (09:32→22:39)
[2019-09-26] MEDS: HYDROmorphone 1 MG/1 ML INJ IV PRN ×4 (09:44→22:20)
[2019-09-26] MEDS ORDERED: SODIUM CHLORIDE 0.9% 1000 ML 1,000 ML IV STA (10:28)
[2019-09-26] MEDS ORDERED: HYDROmorphone 2 MG/1 ML INJ IV STA (10:29)
--- NOTE | 2019-09-26 10:32 | Cat Scan Report ---
CT ABDOMEN AND PELVIS WITH CONTRAST HISTORY: Abdominal pain. COMPARISON: None TECHNIQUE: Routine abdominal and pelvic CT exam performed . All CT scans at this location are perform ed using CT dose reduction for ALARA by means of automated exposure control. FINDINGS: CT ABDOMEN: Lung Bases: Clear. Liver: Normal. Biliary: Normal gallbladder and bile ducts. Spleen: Normal. Pancreas: A 1.4 cm oval hypodense mass of the pancreatic head contiguous to the superior mesenteric v ein image 57, series 2. The rest of the pancreas is normal. Adrenals: The right adrenal gland is normal. Mild enlargement of both medial and lateral limbs of the left adrenal gland. It measures 9 mm in maximum thickness. Kidneys: No significant abnormality. Lymphatics: A peripancreatic lymph node just anterior to the gastrohepatic artery measures 1 cm in sh ort axis. A portacaval lymph node measures 9 mm in short axis. No other suspicious lymph nodes. Vasculature: No significant abnormality. Bowel/Peritoneum: Asymmetric wall thickening of the splenic flexure of the colon measures 1.6 cm imag e 60, series 2 and this portion of the wall is less dense than the rest of the wall.Normal appendix. CT PELVIC: : No significant abnormality. Lymphatics: No lymphadenopathy. GI: Normal rectum and sigmoid colon. Osseous Structures: No aggressive appearing osseous lesions. Additional Findings: A small fat-containing left inguinal hernia. IMPRESSION: 1. A 1.4 cm suspicious hypodense mass of the pancreatic head. Recommend multiphase contrast CT of the pancreas for further evaluation. 2. Suspicious asymmetric wall thickening of the splenic flexure of the colon. Recommend further evalu ation with either barium enema or colonoscopy. 3. Borderline large peripancreatic and portacaval lymph nodes. 4. Small fat-containing left inguinal hernia. Signer Name: Clement Wilder MD Signed: 09/26/2019 10:28 AM Workstation Name: [id number]
[2019-09-26] MEDS ORDERED: SODIUM CHLORIDE 0.9% 1000 ML 1,000 ML ONE (10:35)
[2019-09-26] MEDS ORDERED: BUPIVACAINE-EPINEPHRINE/PF 0.5%-1:200,000 (30 ML) VIAL INFILTRATI ONE ×2 (10:52→13:01)
[2019-09-26] MEDS ORDERED: LIDOCAINE (1%) 10 MG/1 ML VIAL 20 ML MDV ONE (10:52)
[2019-09-26] MEDS ORDERED: ROCURONIUM 50 MG/5 ML INJ IV ONE (11:13)
[2019-09-26] MEDS ORDERED: fentaNYL 100 MCG/2 ML INJ ONE (11:13)
[2019-09-26] MEDS ORDERED: MIDAZOLAM 2 MG/2 ML INJ ONE (11:13)
[2019-09-26] MEDS ORDERED: LIDOCAINE MPF (2%) 20 MG/1 ML VIAL 5 ML ONE (11:13)
[2019-09-26] MEDS ORDERED: PROPOFOL 200 MG/20 ML VIAL IV ONE (11:14)
--- NOTE | 2019-09-26 11:33 | Anesthesia Day of Surgery ---
Anesthesia Day of Surgery - Day of Surgery Patient Examined: Yes Patient H&P Reviewed: Yes Patient is NPO: Yes
--- NOTE | 2019-09-26 11:34 | Anesthesia Consultation ---
Anesthesia Consult and Med Hx Date of service: 09/26/19 - Airway Anesthetic Teeth Evaluation: Good ROM Head & Neck: Adequate Mental/Hyoid Distance: Adequate Mallampati Class: Class II Intubation Access Assessment: Probably Good - Pre-Operative Health Status ASA Pre-Surgery Classification: ASA3, Emergency Proposed Anesthetic Plan: General - Pulmonary Hx Smoking: Yes (2ppd) Hx Asthma: Yes Hx Respiratory Symptoms: Yes (VAZQUEZ) COPD: Yes Hx Pneumonia: Yes (Had a chest tube inserted) Hx Sleep Apnea: Yes (Room air Sp02 [id number]) - Cardiovascular System Hx Hypertension: Yes (Saw music library assistant two weeks ago and ok per pt) Hx Coronary Artery Disease: Yes (Stent x 2016) Hx Heart Attack/AMI: Yes (AMI 2016) - Central Nervous System Hx Psychiatric Problems: Yes (Anxiety/Depression) - Endocrine Hx End Stage Renal Disease: No - Additional Comments Anesthesia Medical History Comments: Had colonoscopy yesterday and perf'd. Hasn't had any of his meds yesterday and today
[2019-09-26] MEDS ORDERED: HYDROmorphone 1 MG/1 ML INJ IV PRN (11:35)
[2019-09-26] MEDS ORDERED: fentaNYL 100 MCG/2 ML INJ IV ONE (11:35)
--- NOTE | 2019-09-26 11:49 | Consultation ---
History of Present Illness Consult date: 09/26/19 Requesting physician: ARLINE GILLIS III Chief complaint: abdominal pain - History of present illness History of present illness: 54yo M with multiple medical problems presents with severe abdominal pain to the emergency room after having a colonoscopy yesterday. Patient reports that he had significant left lower quadrant pain when he woke up from the colonoscopy. It was assessed to be gas related pain. Later that evening, the pain worsened and he presented to the emergency room around 10 PM. The pain is increased since then. It is primarily in the left side of the abdomen. Denies any nausea or vomiting. He is very thirsty. He last passed flatus this morning. He has not had a bowel movement since the colonoscopy. He is not hungry at this time. Past History Past Medical History: acute [place] (2 years ago), CAD, COPD, hypertension Past Surgical History: PTCA (with 1 stent placement), Other (Cardiac stent placement, arthroscopic knee surgery) Social history: smoking (Smokes 2 packs/day), alcohol abuse (Drinks 2 beers daily) Family history: no significant family history Medications and Allergies Allergies Allergy/AdvReac Type Severity Reaction Status Date / Time Sulfa (Sulfonamide Allergy Severe Rash Verified 03/22/16 18:34 Antibiotics) oxytetracycline Allergy Unknown Verified 03/22/16 10:32 [From Terramycin] oxytetracycline HCl Allergy Unknown Verified 03/22/16 10:32 [From Terramycin] Penicillins AdvReac Severe Shortness Verified 03/22/16 18:34 of Breath Home Medications Medication Instructions Recorded Confirmed Last Taken Type ALBUTEROL Inhaler (OR & NICU) 2 puff IH QID PRN #1 inhalation 08/17/18 09/26/19 Unknown Rx [ProAir HFA Inhaler] Arformoterol Nebu [Brovana Nebu] 15 mcg IH Q12HRT ml 08/17/18 09/26/19 Unknown Rx Aspirin [Adult Low Dose Aspirin EC] 81 mg PO DAILY #30 tablet. 08/17/18 09/26/19 Unknown Rx Benzonatate [Tessalon Perles] 100 mg PO Q8HR capsule 08/17/18 Unknown Rx Budesonide [Pulmicort Respules] 0.5 mg IH Q12HRT #30 nebu 08/17/18 09/26/19 Unknown Rx Citalopram [Celexa] 20 mg PO QDAY #30 tablet 08/17/18 09/26/19 Unknown Rx ISOSORBIDE MONOnitrate [Imdur ER] 30 mg PO DAILY #30 tablet 08/17/18 09/26/19 Unknown Rx Ipratropium/Albuterol Sulfate 1 ampul IH Q6HRT #30 ampul.neb 08/17/18 09/26/19 Unknown Rx [DUONEB *Not for PRN Use*] Lisinopril [Zestril TAB] 20 mg PO DAILY #30 tablet 08/17/18 09/26/19 Unknown Rx Metoprolol [Lopressor TAB] 100 mg PO BID #60 tablet 08/17/18 09/26/19 Unknown Rx Pravastatin [Pravachol] 40 mg PO QHS #30 tablet 08/17/18 09/26/19 Unknown Rx Symbicort 160-4.5 Mcg Inhaler 1 puff INHALATION BID #30 08/17/18 09/26/19 Unknown Rx levoFLOXacin [Levaquin TAB] 750 mg PO QDAY #10 tablet 08/17/18 Unknown Rx oxyCODONE /ACETAMINOPHEN [Percocet 1 tab PO Q4H PRN #8 tablet 08/17/18 Unknown Rx 5/325 mg] predniSONE [Prednisone] 10 mg PO DAILY #40 tablet 08/17/18 Unknown Rx Active Meds: Active Medications Acetaminophen (Tylenol) 650 mg PO Q4H PRN PRN Reason: Pain MILD(1-3)/Fever >100.5/ROMANO Dextrose (D50w (25gm) Syringe) 50 ml IV Q30MIN PRN; Protocol PRN Reason: Hypoglycemia Fentanyl (Sublimaze) 100 mcg IV ONCE ONE Stop: 09/26/19 11:36 Hydromorphone HCl (Dilaudid) 1 mg IV Q4HR PRN PRN Reason: Pain , Severe (7-10) Last Admin: 09/26/19 10:38 Dose: 1 mg Documented by: Hydromorphone HCl (Dilaudid) 0.5 mg IV Q10MIN PRN PRN Reason: Pain , Severe (7-10) Levofloxacin/Dextrose (Levaquin 750mg/150ml) 750 mg in 150 mls @ 100 mls/hr IV Q24HR [facility]; Protocol Last Admin: 09/26/19 10:45 Dose: 100 mls/hr Documented by: Metronidazole (Flagyl 500 Mg/100 Ml) 500 mg in 100 mls @ 100 mls/hr IV Q8H [facility]; Protocol Insulin Human Regular (Humulin R) 0 units SUB-Q ACHS [facility]; Protocol Last Admin: 09/26/19 09:32 Dose: Not Given Documented by: Midazolam HCl (Versed) 2 mg IV PREOP NR Stop: 09/26/19 23:59 Ondansetron HCl (Zofran) 4 mg IV Q8H PRN PRN Reason: Nausea And Vomiting Ondansetron HCl (Zofran) 4 mg IV ONCE PRN PRN Reason: Nausea And Vomiting Sodium Chloride (Sodium Chloride Flush Syringe 10 Ml) 10 ml IV BID [facility] Last Admin: 09/26/19 10:46 Dose: 10 ml Documented by: Sodium Chloride (Sodium Chloride Flush Syringe 10 Ml) 10 ml IV PRN PRN PRN Reason: LINE FLUSH Review of Systems - Constitutional no fever, no chills, no chronic pain - Cardiovascular shortness of breath (when the pain spikes), no chest pain - Respiratory no cough - Gastrointestinal abdominal pain, loss of appetite, no nausea, no vomiting, no hematemesis, no coffee ground emesis, no BRBPR, no melena, no hematochezia, no dyspepsia/bloating - Genitourinary flank pain (left side) - Muskuloskeletal no low back pain - Integumentary no rash, no sores, no wounds Exam Vital Signs Pulse Ox 92 09/25/19 23:50 - General physical appearance Positive: well developed, well nourished, moderate pain, obese, other (appears ill) - Eyes Positive: normal occular movement - Respiratory Positive: normal expansion, clear to auscultation (decreased breath sounds bilaterally), other (has some increased work of breathing) - Cardiovascular Rhythm: regular - Abdomen Abdomen: Present: soft, tender (significant in epigastric area and left side. Right side is non-tender. No pelvic shake tenderness), bowel sounds hypoactive, guarding, other (protuberant abdomen). Absent: rigid, surgical scars - Integumentary no rash, no growths, no abnormal pigmentation - Neurologic Neurologic: alert and oriented to time, place and person, motor strength and s ensation are grossly intact - Psychiatric Psychiatric: appropriate mood/affect, intact judgment & insight, cooperative Results - Labs 09/26/19 00:05 Abnormal lab results 09/26/19 09/26/19 Range/Units 00:05 08:48 WBC 21.4 H (4.5-11.0) K/mm3 RBC 5.07 H (3.65-5.03) M/mm3 Hgb 15.8 H (11.8-15.2) gm/dl Hct 46.9 H (35.5-45.6) % Seg Neuts % (Manual) 76.0 H (40.0-70.0) % Lymphocytes % (Manual) 9.0 L (13.4-35.0) % Monocytes % (Manual) 9.0 H (0.0-7.3) % Seg Neutrophils # Man 16.3 H (1.8-7.7) K/mm3 Monocytes # (Manual) 1.9 H (0.0-0.8) K/mm3 Basophils # (Manual) 0.2 H (0.0-0.1) K/mm3 POC Glucose 109 H (70-105) - Imaging CT scan - abdomen: report reviewed, image reviewed CT scan - pelvis: report reviewed, image reviewed (reviewed with Dr. Jacinto) Assessment and Plan - Patient Problems (1) Large bowel perforation Onset Date: ~09/25/19 Current Visit: Yes Status: Acute Plan to address problem: Pt with evidence of localized peritonitis from a small perforation involving the descending colon. Due to significant exam findings, will proceed with dx lap. Initial plan is to repair perforation (if needed), washout the area, and leave a drain. Will decide on next step once pathology results are back from the polyp bx. Discussed options of observation with Abx, current plan, and exploratory lap with colon resection. Discussed risks/benefits of each. Pt agreed with recommendation for dx laparoscopy. Discussed with otto, Ankush Santiago, and Dedrick. Will proceed to OR today. time=60min
[2019-09-26] MEDS ORDERED: MIDAZOLAM 2 MG/2 ML INJ IV NR (12:00)
[2019-09-26] MEDS ORDERED: PHENYLEPHRINE/NS 1,000 MCG/10 ML SYRINGE (OR USE) IV ONE (12:44)
[2019-09-26] MEDS ORDERED: LIDOCAINE (1%) 10 MG/1 ML VIAL 20 ML MDV INFILTRATI ONE (13:01)
[2019-09-26] MEDS ORDERED: SODIUM CHLORIDE 0.9% IRRIG SOLN 2000 ML IR ONE (13:11)
[2019-09-26] MEDS ORDERED: KETOROLAC 30 MG/1 ML INJ ONE (13:24)
[2019-09-26] MEDS ORDERED: ALBUTEROL 8.5 GM INHALATION IH ONE (13:24)
[2019-09-26] MEDS ORDERED: NEOSTIGMINE 10MG/10 ML INJ MDV ONE (13:25)
[2019-09-26] MEDS ORDERED: GLYCOPYRROLATE 0.4 MG/2 ML INJ ONE ×2 (13:25→13:30)
--- NOTE | 2019-09-26 13:50 | Event Note ---
Date: 09/26/19 54yo M with multiple medical problems presents with severe abdominal pain to the emergency room after having a colonoscopy yesterday. Further work up in the Er showed localized peritonitis from a small perforation involving the descending colon. taken to OR for dx lap. keep NPo tonight, iv fluid, supportive care
--- NOTE | 2019-09-26 13:51 | Post Operative Note ---
Date of procedure: 09/26/19 (dictation:[id number]) Pre-op diagnosis: iatrogenic left colon perforation Post-op diagnosis: same Findings: small amount of pus in left gutter. +inflammation in left abdominal wall. No active leak. Procedure: Diagnostic laparoscopy with washout. IVF - 800cc EBL - min UOP - 50cc Anesthesia: BARBRAA Surgeon: ANKITA GAO Product Support Manager: TOÑO ROMO Estimated blood loss: minimal Pathology: none Condition: stable Disposition: PACU
[2019-09-26] MEDS ORDERED: MORPHINE 2 MG/1 ML INJ ONE ×2 (13:58→13:59)
--- NOTE | 2019-09-26 14:25 | Gastroenterology Consultation ---
History of Present Illness - Reason for Consult Consult date: 09/26/19 post colonoscopy abdominal pain Requesting physician: KIM WILLIAMSON - History of Present Illness This is a 54 yo male with pmh of CAD who underwent colonoscopy with descending colon polyp resection with piecemeal hot snare polypectomy presented to the ED overnight for worsening LLQ abdominal pain. No nausea/vomiting. No BM since the colonoscopy. He was found to have free air seen on CT a/p and was evaluated surgery. Taken to the OR for ex-lap, which showed pus in the left gutter but no active leak, likely sealed off. Medication list reviewed. Past History Past Medical History: acute [place] (2 years ago), CAD, COPD, hypertension Past Surgical History: PTCA (with 1 stent placement), Other (Cardiac stent placement, arthroscopic knee surgery) Social history: smoking (Smokes 2 packs/day), alcohol abuse (Drinks 2 beers daily) Family history: no significant family history Medications and Allergies Allergies Allergy/AdvReac Type Severity Reaction Status Date / Time Sulfa (Sulfonamide Allergy Severe Rash Verified 03/22/16 18:34 Antibiotics) oxytetracycline Allergy Unknown Verified 03/22/16 10:32 [From Terramycin] oxytetracycline HCl Allergy Unknown Verified 03/22/16 10:32 [From Terramycin] Penicillins AdvReac Severe Shortness Verified 03/22/16 18:34 of Breath Home Medications Medication Instructions Recorded Confirmed Last Taken Type ALBUTEROL Inhaler (OR & NICU) 2 puff IH QID PRN #1 inhalation 08/17/18 09/26/19 Unknown Rx [ProAir HFA Inhaler] Arformoterol Nebu [Brovana Nebu] 15 mcg IH Q12HRT ml 08/17/18 09/26/19 Unknown Rx Aspirin [Adult Low Dose Aspirin EC] 81 mg PO DAILY #30 tablet.dr 08/17/18 09/26/19 Unknown Rx Benzonatate [Tessalon Perles] 100 mg PO Q8HR capsule 08/17/18 09/26/19 Unknown Rx Budesonide [Pulmicort Respules] 0.5 mg IH Q12HRT #30 nebu 08/17/18 09/26/19 Unknown Rx Citalopram [Celexa] 20 mg PO QDAY #30 tablet 08/17/18 09/26/19 Unknown Rx ISOSORBIDE MONOnitrate [Imdur ER] 30 mg PO DAILY #30 tablet 08/17/18 09/26/19 Unknown Rx Ipratropium/Albuterol Sulfate 1 ampul IH Q6HRT #30 ampul.neb 08/17/18 09/26/19 Unknown Rx [DUONEB *Not for PRN Use*] Lisinopril [Zestril TAB] 20 mg PO DAILY #30 tablet 08/17/18 09/26/19 Unknown Rx Metoprolol [Lopressor TAB] 100 mg PO BID #60 tablet 08/17/18 09/26/19 Unknown Rx Pravastatin [Pravachol] 40 mg PO QHS #30 tablet 08/17/18 09/26/19 Unknown Rx Symbicort 160-4.5 Mcg Inhaler 1 puff INHALATION BID #30 08/17/18 09/26/19 Unknown Rx levoFLOXacin [Levaquin TAB] 750 mg PO QDAY #10 tablet 08/17/18 09/26/19 Unknown Rx oxyCODONE /ACETAMINOPHEN [Percocet 1 tab PO Q4H PRN #8 tablet 08/17/18 09/26/19 Unknown Rx 5/325 mg] predniSONE [Prednisone] 10 mg PO DAILY #40 tablet 08/17/18 09/26/19 Unknown Rx Active Meds: Active Medications Acetaminophen (Tylenol) 650 mg PO Q4H PRN PRN Reason: Pain MILD(1-3)/Fever >100.5/ROMANO Dextrose (D50w (25gm) Syringe) 50 ml IV Q30MIN PRN; Protocol PRN Reason: Hypoglycemia Hydromorphone HCl (Dilaudid) 0.5 mg IV Q10MIN PRN PRN Reason: Pain , Severe (7-10) Stop: 09/26/19 23:59 Hydromorphone HCl (Dilaudid) 1 mg IV Q3H PRN PRN Reason: Pain , Severe (7-10) Levofloxacin/Dextrose (Levaquin 750mg/150ml) 750 mg in 150 mls @ 100 mls/hr IV Q24HR [facility]; Protocol Last Admin: 09/26/19 10:45 Dose: 100 mls/hr Documented by: Metronidazole (Flagyl 500 Mg/100 Ml) 500 mg in 100 mls @ 100 mls/hr IV Q8H [facility]; Protocol Last Admin: 09/26/19 11:00 Dose: Not Given Documented by: Insulin Human Regular (Humulin R) 0 units SUB-Q ACHS [facility]; Protocol Last Admin: 09/26/19 09:32 Dose: Not Given Documented by: Midazolam HCl (Versed) 2 mg IV PREOP NR Stop: 09/26/19 23:59 Last Admin: 09/26/19 11:45 Dose: 2 mg Documented by: Ondansetron HCl (Zofran) 4 mg IV Q8H PRN PRN Reason: Nausea And Vomiting Ondansetron HCl (Zofran) 4 mg IV ONCE PRN PRN Reason: Nausea And Vomiting Sodium Chloride (Sodium Chloride Flush Syringe 10 Ml) 10 ml IV BID [facility] Last Admin: 09/26/19 10:46 Dose: 10 ml Documented by: Sodium Chloride (Sodium Chloride Flush Syringe 10 Ml) 10 ml IV PRN PRN PRN Reason: LINE FLUSH Review of Systems - Review of Systems All systems: negative Constitutional: no weight loss, no weight gain Cardiovascular: no chest pain Respiratory: no cough, no shortness of breath Gastrointestinal: abdominal pain, no nausea, no vomiting, no BRBPR, no melena, no hematochezia Exam - Constitutional Vital Signs: Temp Pulse Resp BP Pulse Ox 98.7 F 96 H 26 H 134/78 94 09/26/19 11:25 09/26/19 11:25 09/26/19 11:50 09/26/19 11:25 09/26/19 11:25 General appearance: no acute distress - EENT ENT: hearing intact - Respiratory Respiratory effort: normal - Cardiovascular Rhythm: regular Heart Sounds: Present: S1 & S2 - Gastrointestinal General gastrointestinal: Present: soft, non-tender, non-distended, other (ES drains in place) - Integumentary Integumentary: Present: clear, warm - Labs CBC & Chem 7: 09/26/19 00:05 Lab Results: Laboratory Results - last 24 hr 09/26/19 09/26/19 00:05 08:48 WBC 21.4 H RBC 5.07 H Hgb 15.8 H Hct 46.9 H MCV 93 MCH 31 MCHC 34 RDW 14.1 Plt Count 250 Add Manual Diff Complete Total Counted 100 Seg Neuts % (Manual) 76.0 H Band Neutrophils % 5.0 Lymphocytes % (Manual) 9.0 L Reactive Lymphs % (Man) 0 Monocytes % (Manual) 9.0 H Eosinophils % (Manual) 0 Basophils % (Manual) 1.0 Metamyelocytes % 0 Myelocytes % 0 Promyelocytes % 0 Blast Cells % 0 Nucleated RBC % Not Reportable Seg Neutrophils # Man 16.3 H Band Neutrophils # 1.1 Lymphocytes # (Manual) 1.9 Abs React Lymphs (Man) 0.0 Monocytes # (Manual) 1.9 H Eosinophils # (Manual) 0.0 Basophils # (Manual) 0.2 H Metamyelocytes # 0.0 Myelocytes # 0.0 Promyelocytes # 0.0 Blast Cells # 0.0 WBC Morphology Not Reportable Hypersegmented Neuts Not Reportable Hyposegmented Neuts Not Reportable Hypogranular Neuts Not Reportable Smudge Cells Not Reportable Toxic Granulation Not Reportable Toxic Vacuolation Not Reportable Dohle Bodies Not Reportable Pelger-Huet Anomaly Not Reportable Andres Rods Not Reportable Platelet Estimate Consistent w auto Clumped Platelets Not Reportable Plt Clumps, EDTA Not Reportable Large Platelets Not Reportable Giant Platelets Not Reportable Platelet Satelliting Not Reportable Plt Morphology Comment Not Reportable RBC Morphology Normal Dimorphic RBCs Not Reportable Polychromasia Not Reportable Hypochromasia Not Reportable Poikilocytosis Not Reportable Anisocytosis Not Reportable Microcytosis Not Reportable Macrocytosis Not Reportable Spherocytes Not Reportable Pappenheimer Bodies Not Reportable Sickle Cells Not Reportable Target Cells Not Reportable Tear Drop Cells Not Reportable Ovalocytes Not Reportable Helmet Cells Not Reportable [place] [employer] Bodies Not Reportable [place] Rings Not Reportable [place] Cells Not Reportable Bite Cells Not Reportable Crenated Cell Not Reportable Elliptocytes Not Reportable Acanthocytes (Spur) Not Reportable Rouleaux Not Reportable Hemoglobin C Crystals Not Reportable Schistocytes Not Reportable Malaria parasites Not Reportable Toni Bodies Not Reportable Hem Pathologist Commnt No POC Glucose 109 H Assessment and Plan 54 yo male with post colonoscopy abdominal pain. # Post colonoscopy abdominal pain # Post polypectomy perforation. - s/p ex-lap with findings of pus in the left gutter but no active leak, suspect has sealed off. now with ES drains x 2. Rec - cont with supportive care. - monitor abdominal exam, monitor ES drain output. - follow up on final pathology results. - will follow.
[2019-09-26] MEDS ORDERED: SODIUM CHLORIDE 0.9% 1000 ML 1,000 ML IV ONE (16:32)
--- NOTE | 2019-09-26 16:34 | Event Note ---
Date: 09/26/19 Routine post-op check Feels much better. Looks more comfortable. Will order IVF bolus and maintenance for tonight.
--- NOTE | 2019-09-26 16:59 | Post Anesthesia Evaluation ---
- Post Anesthesia Evaluation Patient Participated: Yes Airway Patent: Yes Stable Respiratory Function: Yes Nausea/Vomiting: No Temp > 96.8F: Yes Pain Manageable: Yes Adequeate Hydration: Yes Anesthesia Complications: No
[2019-09-26] MEDS ORDERED: D5NS W/KCL 20 MEQ 20 MEQ/1,000 ML BAG IV SCH (17:00)
[2019-09-26] MEDS ORDERED: SODIUM CHLORIDE 0.9% 1000 ML 1,000 ML IV SCH (17:00)
[2019-09-26] MEDS: BUDESONIDE 0.5 MG/2 ML NEBU IH SCH (20:37)
[2019-09-26] MEDS: IPRATROPIUM/ALBUTEROL SULFATE 3 ML AMPUL.NEB IH SCH (20:37)
[2019-09-26] MEDS: METOPROLOL TARTRATE 100 MG TAB PO SCH ×2 (22:21→22:43)
[2019-09-26] MEDS: PRAVASTATIN 40 MG TAB PO SCH (22:22)
--- NOTE | 2019-09-27 00:52 | Operative Report ---
PREOPERATIVE DIAGNOSIS: Iatrogenic left colon perforation. POSTOPERATIVE DIAGNOSIS: Iatrogenic left colon perforation. PROCEDURES: 1. Diagnostic laparoscopy. 2. Washout of abdomen. ATTENDING PHYSICIAN: Matias Krause MD DIESEL MECHANIC APPRENTICE: Dr. Frias. ANESTHESIA: General. ESTIMATED BLOOD LOSS: Minimal. FLUIDS: 800 mL. FINDINGS: Small amount of purulent material in the left pericolic gutter, inflammatory changes with fibrinous exudate primarily near the splenic flexure. Rest of the abdomen was completely normal. SPECIMENS: None. DRAINS: Two 15-Ukrainian ES drains, 1 in the left pericolic gutter, 1 in the pelvis. DISPOSITION: Stable, transferred to Recovery Room. INDICATIONS: This is a 54-year-old male who had an elective routine colonoscopy yesterday and post procedure, developed left lower quadrant pain. This progressively worsened to the point that he presented to the Emergency Room. CT scan done in the Emergency Department showed suggestion of a small microperforation with inflammatory change, but no free fluid. On exam, the patient was exquisitely tender in the left side of the abdomen as well as epigastric area. The patient was in moderate distress from the pain. The patient was assessed for the need for diagnostic laparoscopy. Procedure, risks, benefits were explained to the patient. Risks included but were not limited to infection, bleeding, pain, injury to surrounding structures, possible need for open surgery, possible need for colon resection. The patient understood and consented. OPERATIVE NOTE: The patient was brought to the operating room and placed on the table in supine position. After adequate general anesthesia was established, the patient was prepped and draped in the usual sterile fashion. Antibiotics had already been started in the Emergency Department. SCDs were in place. Time-out was called. From the CT scan, I felt that there was a small fascial defect at the umbilicus. Therefore, I used this as our entry point. Skin was anesthetized with 0.5% Marcaine and 1% lidocaine. Small transverse incision was made. Using the Optiview technique, 5-mm port was inserted. I entered the peritoneal cavity safely. Abdomen was insufflated. We inspected the left side of the abdomen first. We saw that there was a small amount of purulent material to confirm the cause for the patient's significant pain. In order to triangulate the port site, I placed one 5-mm port in the left lower quadrant, one near the left upper quadrant area, so as to mobilize the colon and see if there was a free perforation. The patient was placed in the right lateral tilt and reverse Trendelenburg position to optimize our viewing. We suctioned out the purulent material and gently pulled the colon medially. We believe we found the area of the probable perforation near the splenic flexure. This had the most fibrinous exudate in that area; however, it appeared that it had self-sealed which would be consistent with his overall history as well as the CT findings, as he had a very minimal amount of air after being post procedure [address] Frias and I discussed the case. We felt that it was appropriate to thoroughly wash out the abdomen and leave drains as opposed to moving forward with resection. I had spoken with Dr. Santiago before the case. He was concerned with the appearance of the polyp at that location, which we presumed caused the perforation from the biopsy of the polyp; however, in talking to Dr. Cheng who was the pathologist who reviewed the colon polyp today, he felt that the abnormality in the polyp was benign in appearance and it was completely surrounded by normal cells. Therefore, the potential for malignancy was very low in his mind. Therefore, we felt that to be aggressive and do a colon resection at this point was not prudent. We placed one 15-Ukrainian drain through the left lower quadrant port and laid that along the left pericolic gutter. Another drain was placed through the umbilical port site and placed in the pelvis. We decompressed through the left upper quadrant port site. Additional local was injected into all the port sites. Skin was cleaned and dried. 4-0 Monocryl subcuticular stitches were placed where appropriate. Dermabond was used to close the left upper quadrant site. Dressings were placed at the drain site. The patient tolerated the procedure well. There were no complications. All counts were correct at the end of the case. I spoke with the at the end of the case and gave her a full description of what we had found and what we did. She was very appreciative for the care. I updated Dr. Santiago. He was appreciative as well. JOB# [id number] SARATH/LEO SANCHEZ
[2019-09-27] MEDS: IPRATROPIUM/ALBUTEROL SULFATE 3 ML AMPUL.NEB IH SCH ×5 (03:23→20:56)
[2019-09-27 06:34] LABS: Basophils % (Auto) 0.2 % (0.0-1.8); Eosinophils % (Auto) 0.3 % (0.0-4.3); Lymphocytes % (Auto) 7.9 % (13.4-35.0); Mean Corpuscular HGB Conc 33 % (32-34); Mean Corpuscular Volume 94 fl (84-94); Monocytes # (Auto) 0.8 K/mm3 (0.0-0.8); Monocytes % (Auto) 6.2 % (0.0-7.3); Platelet Count 185 K/mm3 (140-440); Red Blood Count 4.07 M/mm3 (3.65-5.03); Red Cell Distribution Width 14.2 % (13.2-15.2)
[2019-09-27 06:44] LABS: INR 1.29 (0.87-1.13)
[2019-09-27 07:05] LABS: BUN/Creatinine Ratio 10; Blood Urea Nitrogen 7 mg/dL (9-20); Calcium 8.6 mg/dL (8.4-10.2); Hemolysis Index 52
[2019-09-27] MEDS: HYDROmorphone 1 MG/1 ML INJ IV PRN ×2 (08:12→21:01)
--- NOTE | 2019-09-27 09:07 | Progress Note ---
Assessment and Plan - Patient Problems (1) Large bowel perforation Onset Date: ~09/25/19 Current Visit: Yes Status: Acute Plan to address problem: Pt stable. s/p dx lap with washout - 09/26 - POD#1. Pt looks much better. Poss ible d/c home in 1-2 days. Rec: 1) full liquid diet 2) HL IV 3) Ambulate 4) toradol 5) d/c de jesus this AM. Please call with questions. Subjective Date of service: 09/27/19 Patient Reports: Positive: feels better, still having pain, pain is less, no flatus, no bowel movement. Negative: nausea, vomiting Objective Vital Signs - 12hr 09/26/19 09/26/19 09/26/19 22:00 22:43 23:15 Temperature Pulse Rate 87 85 Pulse Rate [ Bilateral Bases ] Pulse Rate [ 78 From Monitor] Respiratory 18 18 Rate Respiratory Rate [Bilateral Bases] Blood Pressure 105/56 O2 Sat by Pulse 92 92 Oximetry 09/26/19 09/27/19 09/27/19 23:50 03:25 03:36 Temperature 98.1 F Pulse Rate 89 Pulse Rate [ 89 Bilateral Bases ] Pulse Rate [ From Monitor] Respiratory 18 Rate Respiratory 18 Rate [Bilateral Bases] Blood Pressure 115/52 O2 Sat by Pulse 93 92 Oximetry 09/27/19 09/27/19 09/27/19 04:15 07:21 08:12 Temperature 98.4 F 98.7 F Pulse Rate 86 84 Pulse Rate [ Bilateral Bases ] Pulse Rate [ From Monitor] Respiratory 18 22 20 Rate Respiratory Rate [Bilateral Bases] Blood Pressure 129/51 130/51 O2 Sat by Pulse 93 92 Oximetry - General physical appearance no distress, no pain, other (looks better. Looks more relaxed) - Respiratory normal expansion, normal respiratory effort - Abdomen soft, tender (but less so throughout.), bowel sounds hypoactive, not guarding, not rigid, surgical scars (C/D/I. ), other (ES with benign appearing fluid) - Psychiatric oriented to time, oriented to person, oriented to place, speech is normal, memory intact - Labs 09/27/19 06:06 09/27/19 06:06 Diabetes panel 09/27/19 Range/Units 06:06 Sodium 138 (137-145) mmol/L Potassium 4.7 (3.6-5.0) mmol/L Chloride 104.8 (98-107) mmol/L Carbon Dioxide 24 (22-30) mmol/L BUN 7 L (9-20) mg/dL Creatinine 0.7 L (0.8-1.5) mg/dL Glucose 124 H (75-100) mg/dL Calcium 8.6 (8.4-10.2) mg/dL Calcium panel 09/27/19 Range/Units 06:06 Calcium 8.6 (8.4-10.2) mg/dL Pituitary panel 09/27/19 Range/Units 06:06 Sodium 138 (137-145) mmol/L Potassium 4.7 (3.6-5.0) mmol/L Chloride 104.8 (98-107) mmol/L Carbon Dioxide 24 (22-30) mmol/L BUN 7 L (9-20) mg/dL Creatinine 0.7 L (0.8-1.5) mg/dL Glucose 124 H (75-100) mg/dL Calcium 8.6 (8.4-10.2) mg/dL Adrenal panel 09/27/19 Range/Units 06:06 Sodium 138 (137-145) mmol/L Potassium 4.7 (3.6-5.0) mmol/L Chloride 104.8 (98-107) mmol/L Carbon Dioxide 24 (22-30) mmol/L BUN 7 L (9-20) mg/dL Creatinine 0.7 L (0.8-1.5) mg/dL Glucose 124 H (75-100) mg/dL Calcium 8.6 (8.4-10.2) mg/dL
[2019-09-27] MEDS: BUDESONIDE 0.5 MG/2 ML NEBU IH SCH ×2 (09:52→20:56)
[2019-09-27] MEDS ORDERED: ENOXAPARIN 40 MG/0.4 ML INJ SUB-Q SCH (10:00)
[2019-09-27] MEDS: ASPIRIN EC 81 MG TAB PO SCH (10:53)
[2019-09-27] MEDS: CITALOPRAM 20 MG TAB PO SCH (10:53)
[2019-09-27] MEDS: METOPROLOL TARTRATE 100 MG TAB PO SCH ×2 (10:54→21:52)
[2019-09-27] MEDS: LISINOPRIL 20 MG TAB PO SCH (10:55)
--- NOTE | 2019-09-27 11:12 | Gastroenterology Progress Note ---
Assessment and Plan # Post colonoscopy abdominal pain # Post polypectomy perforation. - s/p ex-lap with findings of pus in the left gutter but no active leak, suspect has sealed off. now with ES drains x 2. Rec - cont with supportive care. - WBC trending down - monitor abdominal exam, monitor ES drain output. - follow up on final pathology results. - surgery following, defer to surgery for diet. - will follow. Subjective Date of service: 09/27/19 Interval history: Sitting on side of bed. at bedside. Wants to eat. Objective - Constitutional Vitals: Temp Pulse Resp BP Pulse Ox 98.7 F 89 20 130/51 92 09/27/19 07:21 09/27/19 08:00 09/27/19 08:12 09/27/19 07:21 09/27/19 09:54 General appearance: no acute distress - EENT Eyes: EOM intact ENT: hearing intact - Neck Neck: supple - Respiratory Respiratory: bilateral: diminished - Cardiovascular Rhythm: regular Heart Sounds: Present: S1 & S2 - Gastrointestinal General gastrointestinal: Present: distended, hypoactive bowel sounds, other (ES drain x 2 with sero- sang fluid, dressing mid abdomen dry) Rectal Exam: deferred - Genitourinary Male Genitourinary: deferred - Integumentary Integumentary: Present: warm, dry - Neurologic Neurological: alert and oriented x3 - Labs CBC & Chem 7: 09/27/19 06:06 09/27/19 06:06 Labs: Laboratory Results - last 24 hr 09/26/19 09/27/19 09/27/19 22:10 06:06 06:06 WBC 12.3 H RBC 4.07 Hgb 13.0 Hct 39.0 D MCV 94 MCH 31 MCHC 33 RDW 14.2 Plt Count 185 Lymph % (Auto) 7.9 L [place] % (Auto) 6.2 Eos % (Auto) 0.3 Baso % (Auto) 0.2 Lymph # 1.0 L [place] # 0.8 Eos # 0.0 Baso # 0.0 Seg Neutrophils % 85.4 H Seg Neutrophils # 10.5 H PT 15.9 H INR 1.29 H APTT 30.0 Sodium Potassium Chloride Carbon Dioxide Anion Gap BUN Creatinine Estimated GFR BUN/Creatinine Ratio Glucose POC Glucose 80 Calcium 09/27/19 09/27/19 06:06 07:28 WBC RBC Hgb Hct MCV MCH MCHC RDW Plt Count Lymph % (Auto) [place] % (Auto) Eos % (Auto) Baso % (Auto) Lymph # [place] # Eos # Baso # Seg Neutrophils % Seg Neutrophils # PT INR APTT Sodium 138 Potassium 4.7 Chloride 104.8 Carbon Dioxide 24 Anion Gap 14 BUN 7 L Creatinine 0.7 L Estimated GFR > 60 BUN/Creatinine Ratio 10 Glucose 124 H POC Glucose 98 Calcium 8.6
[2019-09-27] MEDS: KETOROLAC 30 MG/1 ML INJ IV SCH ×2 (12:35→23:54)
--- NOTE | 2019-09-27 12:45 | Progress Note ---
Assessment and Plan Large bowel perforation s/p dx lap with washout - 09/26 - POD#1. started on full liquid diet d/c de jesus this AM. surgery following HTN, resumed home meds COPD, h/o cont home meds DVT Px, lovenox Subjective Date of service: 09/27/19 Interval history: Patient seen and examined. Medical records and medication list reviewed. No acute event overnight noted by the RN. Patient denies any chest pain or difficulty breathing. Patient is tolerating full liquid diet. Denies abdominal pain Discussed plan of care at bedside with patient. Objective - Constitutional Vitals: Vital Signs - 12hr 09/27/19 09/27/19 09/27/19 03:25 03:36 04:15 Temperature 98.4 F Pulse Rate 86 Pulse Rate [ 89 Bilateral Bases ] Respiratory 18 Rate Respiratory 18 Rate [Bilateral Bases] Blood Pressure 129/51 O2 Sat by Pulse 92 93 Oximetry 09/27/19 09/27/19 09/27/19 07:21 07:49 08:00 Temperature 98.7 F Pulse Rate 84 Pulse Rate [ 89 Bilateral Bases ] Respiratory 22 20 Rate Respiratory 18 Rate [Bilateral Bases] Blood Pressure 130/51 O2 Sat by Pulse 92 Oximetry 09/27/19 09/27/19 09/27/19 08:12 09:54 12:35 Temperature Pulse Rate Pulse Rate [ Bilateral Bases ] Respiratory 20 20 Rate Respiratory Rate [Bilateral Bases] Blood Pressure O2 Sat by Pulse 92 Oximetry General appearance: Present: no acute distress, obese - EENT Eyes: PERRL, EOM intact ENT: hearing intact, clear oral mucosa Ears: bilateral: normal - Neck Neck: supple, normal ROM - Respiratory Respiratory effort: normal Respiratory: bilateral: CTA - Cardiovascular Rhythm: regular Heart Sounds: Present: S1 & S2. Absent: gallop, rub Extremities: pulses intact, No edema, normal color, Full ROM - Gastrointestinal General gastrointestinal: Present: soft, non-tender, non-distended, normal bowel sounds - Integumentary Integumentary: clear, warm, dry - Musculoskeletal Musculoskeletal: 1, strength equal bilaterally - Neurologic Neurologic: moves all extremities - Psychiatric Psychiatric: memory intact, appropriate mood/affect, intact judgment & insight - Labs CBC & Chem 7: 09/27/19 06:06 09/27/19 06:06 Labs: Abnormal lab results 09/27/19 09/27/19 09/27/19 Range/Units 06:06 06:06 06:06 WBC 12.3 H (4.5-11.0) K/mm3 Lymph % (Auto) 7.9 L (13.4-35.0) % Lymph # 1.0 L (1.2-5.4) K/mm3 Seg Neutrophils % 85.4 H (40.0-70.0) % Seg Neutrophils # 10.5 H (1.8-7.7) K/mm3 PT 15.9 H (12.2-14.9) Sec. INR 1.29 H (0.87-1.13) BUN 7 L (9-20) mg/dL Creatinine 0.7 L (0.8-1.5) mg/dL Glucose 124 H (75-100) mg/dL - Imaging and cardiology CT scan - abdomen: report reviewed
[2019-09-27] MEDS ORDERED: HYDROmorphone 1 MG/1 ML INJ IV ONE (21:29)
[2019-09-27] MEDS: INSULIN REGULAR, HUMAN 100 UNITS/1 ML SUB-Q SCH (21:50)
--- NOTE | 2019-09-27 22:57 | Cat Scan Report ---
CT abdomen pelvis wo/w con INDICATION / CLINICAL INFORMATION: severe abdominal pain, h/o recent colonoscopy. TECHNIQUE: Axial CT imaging of abdomen and pelvis was obtained with and without contrast. Coronal and sagittal r eformatted imaging obtained and reviewed. All CT scans at this location are performed using CT dose reduction for ALARA by means of automated exposure control. COMPARISON: None available. FINDINGS: CT abdomen with contrast demonstrates numerous bubbles of free air throughout the upper abdomen. Ther e is worsening inflammatory change of the colon in the region of the splenic flexure. There is now in flammatory change involving the entire descending colon, previously limited to the area of splenic fl exure. The overall appearance is most suggestive of colonic perforation in the region of the splenic flexure. The liver, spleen, pancreas, kidneys, adrenal glands, and gallbladder appear grossly unremarkable. No focal fluid collection identified. There is now evidence of a catheter within the abdomen mostly see n in the anterior lower abdomen. CT pelvis with contrast demonstrates normal appearance of small gareth l and urinary bladder. There is no free fluid or visible free air within the pelvis. CT abdomen/pelvis without contrast was also performed which provides no additional information. Visualized lung bases show small left pleural effusion and mild left basilar atelectasis. IMPRESSION: 1. Since CT yesterday, pneumoperitoneum has developed with worsening of inflammatory change involving the splenic flexure and descending colon. The overall appearance is most consistent with colonic per foration, given history of recent colonoscopy. 2. Interval development of mild left basilar atelectasis with trace pleural effusion. CRITICAL RESULT: Time of Discovery: 0945 p.m. NETWORK SYSTEMS ANALYST Time of Communication: 0953:00 PM NETWORK SYSTEMS ANALYST Licensed Practitioner Receiving Report: Dr. Fuentes Read Back Performed: Yes. Signer Name: Arlene Ferris MD Signed: 09/27/2019 10:53 PM Workstation Name: [id number]
--- NOTE | 2019-09-27 23:30 | Event Note ---
Date: 09/27/19 Called to evaluate 54-year-old white male who has been on admission for large bowel perforation status post colonoscopy. He had subsequently developed peritonitis and is being followed by the general surgeon. Patient has been having severe abdominal pain this evening and was promptly evaluated . Exam findings were mainly abdominal distention, tenderness and guarding in the left lower quadrant. Bowel sounds hypoactive. He also has a drain in place. He was given IV Dilaudid without any significant improvement. A stat CT abdomen and pelvis was done which reveals worsening inflammatory changes in the splenic flexure and descending colon there is also pneumoperitoneum. All findings were consistent with colonic perforation. General surgeon on-call Dr. Krause was immediately notified of these findings will be following up on patient promptly.
[2019-09-27] MEDS: PRAVASTATIN 40 MG TAB PO SCH (23:32)
[2019-09-28] MEDS ORDERED: HYDROmorphone 1 MG/1 ML INJ IV PRN (00:58)
[2019-09-28] MEDS ORDERED: SODIUM CHLORIDE 0.9% 1000 ML 1,000 ML IV ONE ×2 (01:25→15:39)
--- NOTE | 2019-09-28 01:25 | Anesthesia Day of Surgery ---
Anesthesia Day of Surgery - Day of Surgery Patient Examined: Yes Patient H&P Reviewed: Yes Patient is NPO: Yes
--- NOTE | 2019-09-28 01:27 | Event Note ---
Date: 09/28/19 Had received a call earlier from the hospitalist about the patient's pain. I reviewed the CT and spoke with the patient directly. He was doing well all day, ambulating, and tolerating liquids. Suddenly this evening around 9pm, he developed severe LLQ pain similar to when he came in. He is very tender on exam. Much more so than this morning. He appears ill. Will proceed to OR for dx lap. Procedure, risks, benefits discussed. consent obtained.
[2019-09-28] MEDS ORDERED: ROCURONIUM 50 MG/5 ML INJ IV ONE (01:45)
[2019-09-28] MEDS ORDERED: ONDANSETRON 4 MG/2 ML INJ ONE (01:45)
[2019-09-28] MEDS ORDERED: PHENYLEPHRINE/NS 1,000 MCG/10 ML SYRINGE (OR USE) IV ONE (01:45)
[2019-09-28] MEDS ORDERED: SUCCINYLCHOLINE CHLORIDE 200 MG/10 ML INJ MDV ONE (01:45)
[2019-09-28] MEDS ORDERED: LIDOCAINE MPF (2%) 20 MG/1 ML VIAL 5 ML ONE (01:45)
[2019-09-28] MEDS ORDERED: GLYCOPYRROLATE 0.4 MG/2 ML INJ ONE (01:45)
[2019-09-28] MEDS ORDERED: dexAMETHasone 20 MG/5 ML VIAL ONE (01:45)
[2019-09-28] MEDS ORDERED: fentaNYL 250 MCG/5 ML INJ ONE (01:46)
[2019-09-28] MEDS ORDERED: PROPOFOL 200 MG/20 ML VIAL IV ONE (01:46)
[2019-09-28] MEDS: HYDROmorphone 1 MG/1 ML INJ IV PRN ×5 (01:48→23:02)
[2019-09-28] MEDS ORDERED: BUPIVACAINE/PF (0.5%) 5 MG/1 ML 30 ML VIAL INFILTRATI ONE (01:56)
[2019-09-28] MEDS ORDERED: LIDOCAINE (1%) 10 MG/1 ML VIAL 20 ML MDV ONE (01:56)
[2019-09-28] MEDS ORDERED: BUPIVACAINE-EPINEPHRINE/PF 0.5%-1:200,000 (30 ML) VIAL INFILTRATI ONE ×2 (01:56→03:08)
[2019-09-28] MEDS ORDERED: SODIUM CHLORIDE 0.9% IRR 1,000 ML BOTTLE IR ONE ×2 (03:08)
[2019-09-28] MEDS ORDERED: LIDOCAINE (1%) 10 MG/1 ML VIAL 20 ML MDV INFILTRATI ONE (03:08)
[2019-09-28] MEDS ORDERED: HYDROmorphone 1 MG/1 ML INJ ONE (03:47)
[2019-09-28] MEDS ORDERED: fentaNYL 100 MCG/2 ML INJ ONE (05:51)
[2019-09-28] MEDS ORDERED: SUGAMMADEX SODIUM 200 MG/2 ML VIAL IV ONE (05:56)
--- NOTE | 2019-09-28 06:26 | XRay Report ---
ABDOMEN 1 VIEW(S) INDICATION / CLINICAL INFORMATION: SPONGE COUNT SURGERY. COMPARISON: None available. FINDINGS: TUBES / LINES: NG tube is present with the tip in the proximal/midportion of the stomach. BOWEL GAS PATTERN/EXTRALUMINAL GAS: No significant abnormality. No pneumatosis or secondary signs of free air. ADDITIONAL FINDINGS: What appears to be a sponge is seen in the left mid abdomen at the level of the iliac crest. IMPRESSION: 1. Foreign object is present in the left mid abdomen, at the level the iliac crest, worrisome for ret ained surgical sponge. Signer Name: Arlene Ferris MD Signed: 09/28/2019 6:22 AM Workstation Name: [id number]
--- NOTE | 2019-09-28 06:30 | Post Operative Note ---
Date of procedure: 09/28/19 (dictation: [id number]) Pre-op diagnosis: iatrogenic colon perforation Post-op diagnosis: same Findings: area of bx was now a large perforation (~1cm) Procedure: 1) Dx laparoscopy 2) ex lap 3) Partial colon resection with primary anastomosis 4) splenic flexure mobilization IVF 3L UOP 450cc EBL ~50cc Anesthesia: GETA Surgeon: ANKITA GAO Estimated blood loss: 50-100ml Pathology: list (distal transverse colon) Specimen disposition: to lab Condition: stable Disposition: PACU
[2019-09-28] MEDS ORDERED: MIDAZOLAM 2 MG/2 ML INJ ONE (06:45)
[2019-09-28] MEDS: BUDESONIDE 0.5 MG/2 ML NEBU IH SCH ×2 (07:44→21:37)
[2019-09-28] MEDS: IPRATROPIUM/ALBUTEROL SULFATE 3 ML AMPUL.NEB IH SCH ×5 (07:44→21:37)
[2019-09-28] MEDS ORDERED: ALBUTEROL 2.5 MG/3 ML NEBU IH ONE ×2 (07:46→08:15)
--- NOTE | 2019-09-28 08:12 | Gastroenterology Progress Note ---
Assessment and Plan 54 yo male with post colonoscopy abdominal pain. # Post colonoscopy abdominal pain # Post polypectomy perforation. - s/p colonoscopy on 09/26/2019 with 3 cm proximal descending polyp removed in piecemeal fashion. - s/p ex-lap with findings of pus in the left gutter but no active leak, suspect has sealed off. now with ES drains x 2 on 09/27/2019 - developed severe abdominal pain, peritoneal signs, CT showing perforation signs, taken over to the OR this morning. There was perforation involving distal transverse colon. - s/p 1) Dx laparoscopy, 2) ex lap, 3) Partial colon resection with primary anastomosis, 4) splenic flexure mobilization Rec - post op care per surgery. discussed with Dr. Krause this morning. - follow up on final pathology results. - will follow. Subjective Date of service: 09/28/19 Interval history: Overnight, patient developed worsening abdominal pain and stat CT showed signs of perforation. Taken back to the OR and found to have a perforation, and had partial resection. Patient seen post op this morning. Reports lower abdominal pa in but VS stable. Objective - Constitutional Vitals: Temp Pulse Resp BP Pulse Ox 99.8 F H 98 H 22 132/70 97 09/28/19 06:40 09/28/19 08:00 09/28/19 08:00 09/28/19 08:00 09/28/19 08:00 General appearance: no acute distress - EENT ENT: hearing intact - Respiratory Respiratory effort: normal - Cardiovascular Rhythm: regular Heart Sounds: Present: S1 & S2 - Gastrointestinal General gastrointestinal: Present: soft, tender, non-distended, other (ES drain in place) - Integumentary Integumentary: Present: clear, warm - Labs CBC & Chem 7: 09/27/19 06:06 09/27/19 06:06 Labs: Laboratory Results - last 24 hr 09/27/19 09/27/19 09/27/19 07:28 12:36 16:43 POC Glucose 98 78 96 09/27/19 21:23 POC Glucose 76
[2019-09-28] MEDS: INSULIN REGULAR, HUMAN 100 UNITS/1 ML SUB-Q SCH ×6 (08:21→22:45)
[2019-09-28] MEDS: KETOROLAC 30 MG/1 ML INJ IV SCH ×4 (08:22→17:39)
--- NOTE | 2019-09-28 09:58 | Operative Report ---
PREOPERATIVE DIAGNOSES: 1. Iatrogenic colon perforation. 2. Recurrent peritonitis. POSTOPERATIVE DIAGNOSES: 1. Iatrogenic colon perforation. 2. Recurrent peritonitis. PROCEDURE: 1. Diagnostic laparoscopy. 2. Exploratory laparotomy. 3. Partial colon resection with primary anastomosis. 4. Splenic flexure mobilization. ATTENDING PHYSICIAN: Matias Krause M.D. ANESTHESIA: General. ESTIMATED BLOOD LOSS: Approximately 50 mL. FLUIDS: 3 liters. URINE OUTPUT: 450 mL. FINDINGS: The patient had an approximately 1 cm perforation on the distal transverse colon near the splenic flexure. It was distal to the tattoo marking from the colonoscopy, yellowish greenish fluid was seen in the abdomen. Small amounts were noted in multiple locations. No particulate matter was identified. No significant inflammatory reaction was seen. The colon otherwise appeared healthy. SPECIMENS: Distal transverse colon. DRAINS: 19 Norwegian ES drain, Whitfield catheter and NG tube. COMPLICATIONS: None. DISPOSITION: Stable transport to Recovery. INDICATIONS: This is a 54-year-old obese male who we recently took to the operating room after he presented with severe abdominal pain after colonoscopy. Diagnostic laparoscopy was done. Abdominal washout was done, but no specific hole was identified. It appeared as though the microperforation had sealed on its own. The patient did very well for approximately 36 hours until he developed severe left lower quadrant pain. He had been up ambulating earlier in the day, tolerating liquid diet, had passed flatus, but then he suddenly experienced a sudden sharp, severe left lower quadrant pain. The patient was in significant distress. CT scan had been ordered by the medical team. There were some dots of free air; however, the patient recently had a laparoscopic procedure. There were no really concerning findings on CT; however, his exam was very concerning. Therefore, arrangements made for repeat diagnostic laparoscopy. Procedure, risks, benefits were explained to the patient. Risks included but were not limited to infection, bleeding, pain, injury to surrounding structures, possible need for further procedures in the future. The patient understood and consented. OPERATIVE NOTE: The patient was brought down to the operating room and placed on the table in supine position. After adequate general anesthesia was established, the patient was prepped and draped in usual sterile fashion. Whitfield catheter was placed. NG tube was placed. SCDs were in place. Antibiotics had been given. Time-out was called. We began by removing the umbilical drain that had previously been placed. 5 mm port was inserted through that opening. Abdomen was insufflated. We entered the peritoneal cavity safely. There was a small amount of yellowish, slightly greenish fluid in a few locations, but no significant abnormality was identified. There was a little bit more fluid in the left upper quadrant and now this time underneath the liver. Therefore, I decided it would be best to go ahead and transition to an open procedure as we are seeing recurrence of this abnormal fluid like we did the first time. I left the abdomen insufflated. We made an upper midline incision that extended just below the umbilicus. We entered the peritoneal cavity safely. I took down the falciform ligament with the EnSeal device. We then irrigated out the abdomen to clean it up a little bit, Bookwalter retractor was set up. We then examined the left upper quadrant. At this time, there was a very clear obvious 1 cm hole with liquid periodically leaking out of it. This is quite different than the first time as this hole was not present. I think probably that tissue was compromised by the biopsy and a small microperforation occurred at the time of colonoscopy. When we initially saw the colon, it had not completely broken down yet; however, the tissue probably was compromised and then with more time, it became more ischemic and then finally had a full perforation. Therefore, our plan was to resect this portion. We packed off the small bowel towards the right side of the abdomen. Additional retractors were placed. This part of the procedure required extra time due to the increased difficulty from his obesity. I mobilized the left colon beginning the dissection along the white line of Toldt. I the omentum from the transverse colon and then eventually made our way to the splenic flexure. I went back and forth in order to mobilize the colon. I used the EnSeal for a good portion of the sealing and ligation. Once we got to the splenic flexure, I then went in very careful stepwise manner to take down the attachments very slowly here. I did the sealing sequence twice before cutting. We were able to completely separate without damaging the spleen at all. There was no bleeding. We had a very nice dissection, our plane of dissection was right at the junction between the mesentery and the retroperitoneum. The retroperitoneum was undisturbed. I mobilized the colon to the midline. We then excised a portion of the colon starting at the distal transverse colon and going to the mid descending colon approximately. We divided the mesentery with the EnSeal device and passed the specimen off the table in sterile manner. We then thoroughly irrigated out the abdomen. Multiple liters of fluid were used to try to get the abdomen as clean as possible, in the end, we ultimately, per the staff, ended up using 19 liters of warm crystalloid. I was hoping that if the abdomen were extremely clean then we would have a greater chance of success of healing an anastomosis. The patient was adamant that he did not want a colostomy. As the patient was hemodynamically stable, he had already had a bowel prep, we had in a sense minimal contamination and there was no particulate matter, he was hemodynamically stable and we had very little bleeding, I thought he would be a good candidate to try to do an anastomosis. We ultimately ended up doing an isoperistaltic anastomosis. We used a 75 mm JULIANE stapler for the anastomosis and then closed the opening with a TA 60 stapler. The crotch was reinforced with two 3-0 silk sutures. The enterotomy closure site was reinforced with interrupted 3-0 silk Lembert sutures. Everything was hemostatic. We had a very nice opening in the anastomosis by palpation. We continued to thoroughly irrigate out the abdomen to try to minimize any risk. I placed a 19-Norwegian drain in the left lower quadrant through a separate stab site compared to where we had drained previously and then placed it along the left side of the abdomen towards the pelvis. I covered the anastomosis with his very thick omentum. We had a large amount of omentum that worked very nicely to have no tension and could be completely draped over the anastomosis. After we thoroughly irrigated out the abdomen, we felt very good about what was returning. We then proceeded to close the fascia with a running #1 looped PDS suture. Fascia was closed subcutaneous tissue was irrigated and then we closed the skin with cody. Every so often we placed a Betadine-soaked packing strip. The laparoscopic sites were closed with cody. Skin was cleaned and dried. Our sponge count was incorrect at the end of the case. Therefore, x-ray was shot. It appeared as though one sponge was left where the anastomosis was done. In retrospect, we had placed a lap sponge underneath the two limbs to catch any spillage that may happen. There was no spillage, but the sponge got balled up and was difficult to see at the end, therefore we missed this one as we pulled out all the rest of the sponges. We were able to easily retrieve it and then we closed the abdomen again in the same manner. Skin was cleaned and dried, dressings were placed. The patient tolerated the procedure well. There were no complications. All counts were correct now at the end of the case. I had an extensive discussion with the . She understands that we are at risk for anastomotic breakdown and abscess formation, but she was pleased that we made the attempt to avoid the colostomy. JOB# [id number] SARATH/LEO SANCHEZ
[2019-09-28] MEDS: metroNIDAZOLE/NS 500 MG/100 ML 500 MG/100 ML BAG IV SCH ×3 (10:19→21:59)
[2019-09-28] MEDS: CITALOPRAM 20 MG TAB PO SCH (10:27)
--- NOTE | 2019-09-28 10:27 | Post Anesthesia Evaluation ---
- Post Anesthesia Evaluation Patient Participated: Yes Airway Patent: Yes Stable Respiratory Function: Yes (returned to preop O2 requirement) Nausea/Vomiting: No Temp > 96.8F: Yes Pain Manageable: Yes Adequeate Hydration: Yes Anesthesia Complications: No Other Comments: Received albuterol neb treatment in PACU for wheezing.
[2019-09-28] MEDS: LISINOPRIL 20 MG TAB PO SCH (10:28)
[2019-09-28] MEDS: METOPROLOL TARTRATE 100 MG TAB PO SCH ×2 (10:28→22:45)
[2019-09-28] MEDS: ASPIRIN EC 81 MG TAB PO SCH (10:28)
--- NOTE | 2019-09-28 15:41 | Event Note ---
Date: 09/28/19 Routine post-op check. Pt is feeling much better. VS better. Looks more comfortable. Discussed findings, procedures, and plan. If patient doing well tomorrow, will order ice chips and sips. If he continues to do well, then clear liquids on Tuesday and removal of NGT. Dr. Garcia will be rounding for me over the weekend. Pt and aware. Rec: 1) IS 2) ambulate 3) d/c de jesus tomorrow. 4) 1L bolus - appears dry Please call with questions.
--- NOTE | 2019-09-28 16:13 | Progress Note ---
Assessment and Plan /Large bowel perforation s/p dx lap with washout on 09/26 followed by exploratory laparotomy with Partial colon resection with primary anastomosis today Placed on NG suction, nothing by mouth surgery following /HTN, clonidine patch and IV hydralazine as needed /COPD, h/o cont home meds /DVT Px, lovenox Brief History: 54yo M with multiple medical problems presents with severe abdominal pain to the emergency room after having a colonoscopy yesterday. Further work up in the Er showed localized peritonitis from a small perforation involving the descending colon. taken to OR for dx lap and washout. Overnight, patient developed worsening abdominal pain and stat CT showed signs of perforation. Taken back to the OR and found to have a perforation, and had partial resection this am. Subjective Date of service: 10/05/19 Interval history: Patient seen and examined. Medical records and medication list reviewed. Status post exploratory laparotomy followed by large bowel resection overnight Patient now on NG suction and nothing by mouth. updated family member at bedside Objective - Constitutional Vitals: Vital Signs - 12hr 09/28/19 09/28/19 09/28/19 06:40 06:45 06:50 Temperature 99.8 F H Pulse Rate 108 H 110 H 104 H Pulse Rate [ Anterior Bilateral Upper Lobe] Pulse Rate [ Bilateral Bases ] Respiratory 20 16 16 Rate Respiratory Rate [Anterior Bilateral Upper Lobe] Respiratory Rate [Bilateral Bases] Blood Pressure 120/75 141/96 141/96 O2 Sat by Pulse 93 92 96 Oximetry 09/28/19 09/28/19 09/28/19 07:00 07:15 07:30 Temperature Pulse Rate 110 H 113 H 114 H Pulse Rate [ Anterior Bilateral Upper Lobe] Pulse Rate [ Bilateral Bases ] Respiratory 17 17 23 Rate Respiratory Rate [Anterior Bilateral Upper Lobe] Respiratory Rate [Bilateral Bases] Blood Pressure 162/99 139/61 137/62 O2 Sat by Pulse 91 91 92 Oximetry 09/28/19 09/28/19 09/28/19 07:45 08:00 08:15 Temperature Pulse Rate 105 H 98 H 106 H Pulse Rate [ Anterior Bilateral Upper Lobe] Pulse Rate [ Bilateral Bases ] Respiratory 24 22 23 Rate Respiratory Rate [Anterior Bilateral Upper Lobe] Respiratory Rate [Bilateral Bases] Blood Pressure 129/63 132/70 116/67 O2 Sat by Pulse 95 97 97 Oximetry 09/28/19 09/28/19 09/28/19 08:30 09:45 12:00 Temperature 97.9 F Pulse Rate 104 H Pulse Rate [ Anterior Bilateral Upper Lobe] Pulse Rate [ Bilateral Bases ] Respiratory 26 H Rate Respiratory Rate [Anterior Bilateral Upper Lobe] Respiratory Rate [Bilateral Bases] Blood Pressure 116/67 O2 Sat by Pulse 97 96 97 Oximetry 09/28/19 09/28/19 12:37 12:56 Temperature Pulse Rate Pulse Rate [ 90 88 Anterior Bilateral Upper Lobe] Pulse Rate [ 92 H Bilateral Bases ] Respiratory Rate Respiratory 20 18 Rate [Anterior Bilateral Upper Lobe] Respiratory 20 Rate [Bilateral Bases] Blood Pressure O2 Sat by Pulse Oximetry General appearance: Present: mild distress, obese, other (appears in pain and ill looking) - EENT Eyes: PERRL, EOM intact ENT: hearing intact, clear oral mucosa Ears: bilateral: normal - Neck Neck: supple, normal ROM - Respiratory Respiratory effort: normal Respiratory: bilateral: CTA - Cardiovascular Rhythm: regular Heart Sounds: Present: S1 & S2. Absent: gallop, rub Extremities: pulses intact, No edema, normal color, Full ROM - Gastrointestinal General gastrointestinal: Present: soft, tender, hypoactive bowel sounds, other (surgical wound and drainage on place) - Integumentary Integumentary: clear, warm, dry - Musculoskeletal Musculoskeletal: 1, strength equal bilaterally - Neurologic Neurologic: moves all extremities - Psychiatric Psychiatric: memory intact, appropriate mood/affect, intact judgment & insight - Labs CBC & Chem 7: 09/29/19 09:22 09/29/19 09:22 Labs: Abnormal lab results 09/28/19 Range/Units 12:38 POC Glucose 125 H (70-105)
[2019-09-28] MEDS ORDERED: hydrALAZINE 20 MG/1 ML INJ IV PRN (16:14)
[2019-09-28] MEDS: SODIUM CHLORIDE 0.9% 1000 ML 1,000 ML IV SCH (21:59)
[2019-09-28] MEDS: PRAVASTATIN 40 MG TAB PO SCH (22:45)
[2019-09-29] MEDS: KETOROLAC 30 MG/1 ML INJ IV SCH ×4 (00:19→17:14)
[2019-09-29] MEDS: IPRATROPIUM/ALBUTEROL SULFATE 3 ML AMPUL.NEB IH SCH ×4 (03:11→21:17)
[2019-09-29] MEDS: HYDROmorphone 1 MG/1 ML INJ IV PRN ×3 (03:15→17:32)
[2019-09-29] MEDS: metroNIDAZOLE/NS 500 MG/100 ML 500 MG/100 ML BAG IV SCH ×3 (05:19→22:34)
[2019-09-29] MEDS: BUDESONIDE 0.5 MG/2 ML NEBU IH SCH ×2 (07:37→21:17)
[2019-09-29] MEDS: INSULIN REGULAR, HUMAN 100 UNITS/1 ML SUB-Q SCH ×4 (09:02→22:32)
[2019-09-29] MEDS: METOPROLOL TARTRATE 100 MG TAB PO SCH ×2 (09:03→22:36)
[2019-09-29] MEDS: LISINOPRIL 20 MG TAB PO SCH (09:03)
[2019-09-29] MEDS: CITALOPRAM 20 MG TAB PO SCH (09:04)
[2019-09-29] MEDS: ASPIRIN EC 81 MG TAB PO SCH (09:05)
[2019-09-29] MEDS: SODIUM CHLORIDE 0.9% 1000 ML 1,000 ML IV SCH ×2 (09:26→18:52)
[2019-09-29 09:51] LABS: Hemoglobin 12.2 gm/dl (11.8-15.2); Mean Corpuscular HGB Conc 34 % (32-34); Mean Corpuscular Volume 94 fl (84-94); Platelet Count 179 K/mm3 (140-440); Red Blood Count 3.83 M/mm3 (3.65-5.03); Red Cell Distribution Width 14.4 % (13.2-15.2)
[2019-09-29 10:10] LABS: BUN/Creatinine Ratio 20; Blood Urea Nitrogen 14 mg/dL (9-20); Calcium 8.5 mg/dL (8.4-10.2); Hemolysis Index 89
[2019-09-29 11:16] LABS: Band Neutrophils # (Manual) 0.7 K/mm3; Basophils % (Manual) 0 % (0.0-1.8); Eosinophils % (Manual) 0 % (0.0-4.3); Monocytes % (Manual) 0 % (0.0-7.3); Total Cells Counted 100
[2019-09-29 11:17] LABS: Platelet Estimate Consistent w Auto; RBC Morphology Normal
--- NOTE | 2019-09-29 11:22 | Gastroenterology Progress Note ---
Assessment and Plan 1. Perforation following piecemeal polypectomy. s/p ex lap, partial colon resection with primary anastomosis, and splenic flexure mobilization. awaiting path. further management per surgery Subjective Date of service: 09/29/19 Principal diagnosis: colon perforation Interval history: pt seen and examined; no new complaints. no flatus yet. denies n/v or significant abd pain Objective - Constitutional Vitals: Temp Pulse Resp BP Pulse Ox 97.4 F L 89 22 132/61 92 09/29/19 04:00 09/29/19 10:11 09/29/19 08:21 09/29/19 04:00 09/29/19 10:00 General appearance: no acute distress - Respiratory Respiratory effort: normal Respiratory: bilateral: CTA - Cardiovascular Rhythm: regular Heart Sounds: Present: S1 & S2 - Gastrointestinal General gastrointestinal: Present: other (soft, mild dist, mild ttp, + abd drain) - Labs CBC & Chem 7: 09/29/19 09:22 09/29/19 09:22 Labs: Laboratory Results - last 24 hr 09/28/19 09/28/19 09/28/19 12:38 16:12 22:25 WBC RBC Hgb Hct MCV MCH MCHC RDW Plt Count Add Manual Diff Total Counted Seg Neutrophils % Seg Neuts % (Manual) Band Neutrophils % Lymphocytes % (Manual) Reactive Lymphs % (Man) Monocytes % (Manual) Eosinophils % (Manual) Basophils % (Manual) Metamyelocytes % Myelocytes % Promyelocytes % Blast Cells % Nucleated RBC % Seg Neutrophils # Man Band Neutrophils # Lymphocytes # (Manual) Abs React Lymphs (Man) Monocytes # (Manual) Eosinophils # (Manual) Basophils # (Manual) Metamyelocytes # Myelocytes # Promyelocytes # Blast Cells # WBC Morphology Hypersegmented Neuts Hyposegmented Neuts Hypogranular Neuts Smudge Cells Toxic Granulation Toxic Vacuolation Dohle Bodies Pelger-Huet Anomaly Andres Rods Platelet Estimate Clumped Platelets Plt Clumps, EDTA Large Platelets Giant Platelets Platelet Satelliting Plt Morphology Comment RBC Morphology Dimorphic RBCs Polychromasia Hypochromasia Poikilocytosis Anisocytosis Microcytosis Macrocytosis Spherocytes Pappenheimer Bodies Sickle Cells Target Cells Tear Drop Cells Ovalocytes Helmet Cells Varghese-Talty Bodies Altmar Rings Bishnu Cells Bite Cells Crenated Cell Elliptocytes Acanthocytes (Spur) Rouleaux Hemoglobin C Crystals Schistocytes Malaria parasites Toni Bodies Hem Pathologist Commnt Sodium Potassium Chloride Carbon Dioxide Anion Gap BUN Creatinine Estimated GFR BUN/Creatinine Ratio Glucose POC Glucose 125 H 116 H 107 H Calcium 09/29/19 09/29/19 09/29/19 08:51 09:22 09:22 WBC 10.9 RBC 3.83 Hgb 12.2 Hct 36.0 MCV 94 MCH 32 MCHC 34 RDW 14.4 Plt Count 179 Add Manual Diff Complete Total Counted 100 Seg Neutrophils % Automatic Glove Former Seg Neuts % (Manual) 86.0 H Band Neutrophils % 6.0 Lymphocytes % (Manual) 6.0 L Reactive Lymphs % (Man) 0 Monocytes % (Manual) 0 Eosinophils % (Manual) 0 Basophils % (Manual) 0 Metamyelocytes % 2.0 Myelocytes % 0 Promyelocytes % 0 Blast Cells % 0 Nucleated RBC % Not Reportable Seg Neutrophils # Man 9.4 H Band Neutrophils # 0.7 Lymphocytes # (Manual) 0.7 L Abs React Lymphs (Man) 0.0 Monocytes # (Manual) 0.0 Eosinophils # (Manual) 0.0 Basophils # (Manual) 0.0 Metamyelocytes # 0.2 Myelocytes # 0.0 Promyelocytes # 0.0 Blast Cells # 0.0 WBC Morphology Not Reportable Hypersegmented Neuts Not Reportable Hyposegmented Neuts Not Reportable Hypogranular Neuts Not Reportable Smudge Cells Not Reportable Toxic Granulation Not Reportable Toxic Vacuolation Not Reportable Dohle Bodies Not Reportable Pelger-Huet Anomaly Not Reportable Andres Rods Not Reportable Platelet Estimate Consistent w auto Clumped Platelets Not Reportable Plt Clumps, EDTA Not Reportable Large Platelets Not Reportable Giant Platelets Not Reportable Platelet Satelliting Not Reportable Plt Morphology Comment Not Reportable RBC Morphology Normal Dimorphic RBCs Not Reportable Polychromasia Not Reportable Hypochromasia Not Reportable Poikilocytosis Not Reportable Anisocytosis Not Reportable Microcytosis Not Reportable Macrocytosis Not Reportable Spherocytes Not Reportable Pappenheimer Bodies Not Reportable Sickle Cells Not Reportable Target Cells Not Reportable Tear Drop Cells Not Reportable Ovalocytes Not Reportable Helmet Cells Not Reportable Varghese-Talty Bodies Not Reportable Altmar Rings Not Reportable Bishnu Cells Not Reportable Bite Cells Not Reportable Crenated Cell Not Reportable Elliptocytes Not Reportable Acanthocytes (Spur) Not Reportable Rouleaux Not Reportable Hemoglobin C Crystals Not Reportable Schistocytes Not Reportable Malaria parasites Not Reportable Toni Bodies Not Reportable Hem Pathologist Commnt No Sodium 143 Potassium 4.7 Chloride 110.2 H Carbon Dioxide 20 L Anion Gap 18 BUN 14 Creatinine 0.7 L Estimated GFR > 60 BUN/Creatinine Ratio 20 Glucose 126 H POC Glucose 119 H Calcium 8.5
[2019-09-29] MEDS: ENOXAPARIN 40 MG/0.4 ML INJ SUB-Q SCH (13:02)
--- NOTE | 2019-09-29 14:31 | Progress Note ---
Assessment and Plan /Large bowel perforation s/p dx lap with washout on 09/26 followed by exploratory laparotomy with Partial colon resection with primary anastomosis on 09/28/19 Placed on NG suction, nothing by mouth surgery following, if stable plan to start po from tomorrow /HTN, clonidine patch and IV hydralazine as needed /COPD with acute respiratory failure - Respiratory status declined following surgery - expected with h/o copd - cont nebs, wean off O2 as tolerated, cont iv steroid - pulmonary following /DVT Px, lovenox Brief History: 54yo M with multiple medical problems presents with severe abdominal pain to the emergency room after having a colonoscopy. Further work up in the Er showed localized peritonitis from a small perforation involving the descending colon. taken to OR for dx lap and washout. Overnight, patient developed worsening abdominal pain and stat CT showed signs of perforation. Taken back to the OR and found to have a perforation, and had partial resection on 09/28/19. Physical exam: General appearance: Present: mild distress, obese, other (appears in pain and ill looking) - EENT Eyes: PERRL, EOM intact ENT: hearing intact, clear oral mucosa Ears: bilateral: normal - Neck Neck: supple, normal ROM - Respiratory Respiratory effort: normal Respiratory: bilateral: CTA - Cardiovascular Rhythm: regular Heart Sounds: Present: S1 & S2. Absent: gallop, rub Extremities: pulses intact, No edema, normal color, Full ROM - Gastrointestinal General gastrointestinal: Present: soft, tender, hypoactive bowel sounds, other (surgical wound and drainage on place) - Integumentary Integumentary: clear, warm, dry - Musculoskeletal Musculoskeletal: 1, strength equal bilaterally - Neurologic Neurologic: moves all extremities - Psychiatric Psychiatric: memory intact, appropriate mood/affect, intact judgment & insight Subjective Date of service: 09/29/19 Principal diagnosis: colon perforation Interval history: Patient seen and examined. Medical records and medication list reviewed. Status post exploratory laparotomy followed by large bowel resection Patient now on NG suction and nothing by mouth. updated family member at bedside remained on supplemental O2 Objective - Constitutional Vitals: Vital Signs - 12hr 09/29/19 09/29/19 09/29/19 03:13 04:00 07:33 Temperature 97.4 F L Pulse Rate 97 H Pulse Rate [ 87 88 Anterior Bilateral Upper Lobe] Pulse Rate [ 93 H Bilateral Bases ] Respiratory 24 Rate Respiratory 24 18 Rate [Anterior Bilateral Upper Lobe] Respiratory 26 H Rate [Bilateral Bases] Blood Pressure 132/61 O2 Sat by Pulse 91 Oximetry 09/29/19 09/29/19 09/29/19 08:21 08:43 10:00 Temperature 97.7 F Pulse Rate 94 H Pulse Rate [ Anterior Bilateral Upper Lobe] Pulse Rate [ Bilateral Bases ] Respiratory 22 18 Rate Respiratory Rate [Anterior Bilateral Upper Lobe] Respiratory Rate [Bilateral Bases] Blood Pressure 141/76 O2 Sat by Pulse 96 94 92 Oximetry 09/29/19 09/29/19 10:11 12:48 Temperature 98.1 F Pulse Rate 89 97 H Pulse Rate [ Anterior Bilateral Upper Lobe] Pulse Rate [ Bilateral Bases ] Respiratory 18 Rate Respiratory Rate [Anterior Bilateral Upper Lobe] Respiratory Rate [Bilateral Bases] Blood Pressure 141/73 O2 Sat by Pulse 92 Oximetry - Labs CBC & Chem 7: 09/30/19 21:38 09/30/19 07:40 Labs: Abnormal lab results 09/28/19 09/28/19 09/29/19 Range/Units 16:12 22:25 08:51 Seg Neuts % (Manual) (40.0-70.0) % Lymphocytes % (Manual) (13.4-35.0) % Seg Neutrophils # Man (1.8-7.7) K/mm3 Lymphocytes # (Manual) (1.2-5.4) K/mm3 Chloride (98-107) mmol/L Carbon Dioxide (22-30) mmol/L Creatinine (0.8-1.5) mg/dL Glucose (75-100) mg/dL POC Glucose 116 H 107 H 119 H (70-105) 09/29/19 09/29/19 09/29/19 Range/Units 09:22 09:22 11:52 Seg Neuts % (Manual) 86.0 H (40.0-70.0) % Lymphocytes % (Manual) 6.0 L (13.4-35.0) % Seg Neutrophils # Man 9.4 H (1.8-7.7) K/mm3 Lymphocytes # (Manual) 0.7 L (1.2-5.4) K/mm3 Chloride 110.2 H (98-107) mmol/L Carbon Dioxide 20 L (22-30) mmol/L Creatinine 0.7 L (0.8-1.5) mg/dL Glucose 126 H (75-100) mg/dL POC Glucose 112 H (70-105)
--- NOTE | 2019-09-29 15:10 | Progress Note ---
Assessment and Plan 54 yo M with large bowel perforation s/p Dx laparoscopy, ex lap, Partial colon resection with primary anastomosis, splenic flexure mobilization POD 1 and Dx lap, peritoneal lavage POD 3 Plan: 1. NPO except ice chips/sips of water 2. NGT to LIWS 3. IVF 4. OOB/chair 5. Incentive spirometry/wean O2 6. DVT ppx - ok to resume lovenox 7. Es drain - monitor output 8. continue IV abx 9. await bowel function 10. prn pain control Plan discussed with patient and at bedside. Thank you, please call with questions. Subjective Date of service: 09/29/19 Narrative: Pt seen and examined. States he feels better today. No n/v. Abdominal pain controlled. No f/c. He c/o NGT being uncomfortable. No flatus or BM. Has sat on the edge of the bed. [place]field removed this am. Objective Vital Signs - 12hr 09/29/19 09/29/19 09/29/19 03:13 04:00 07:33 Temperature 97.4 F L Pulse Rate 97 H Pulse Rate [ 87 88 Anterior Bilateral Upper Lobe] Pulse Rate [ 93 H Bilateral Bases ] Respiratory 24 Rate Respiratory 24 18 Rate [Anterior Bilateral Upper Lobe] Respiratory 26 H Rate [Bilateral Bases] Blood Pressure 132/61 O2 Sat by Pulse 91 Oximetry 09/29/19 09/29/19 09/29/19 08:21 08:43 10:00 Temperature 97.7 F Pulse Rate 94 H Pulse Rate [ Anterior Bilateral Upper Lobe] Pulse Rate [ Bilateral Bases ] Respiratory 22 18 Rate Respiratory Rate [Anterior Bilateral Upper Lobe] Respiratory Rate [Bilateral Bases] Blood Pressure 141/76 O2 Sat by Pulse 96 94 92 Oximetry 09/29/19 09/29/19 10:11 12:48 Temperature 98.1 F Pulse Rate 89 97 H Pulse Rate [ Anterior Bilateral Upper Lobe] Pulse Rate [ Bilateral Bases ] Respiratory 18 Rate Respiratory Rate [Anterior Bilateral Upper Lobe] Respiratory Rate [Bilateral Bases] Blood Pressure 141/73 O2 Sat by Pulse 92 Oximetry - General physical appearance Narrative Exam: Gen: AAOx3. NAD ENT: NGT with dark brown gastric drainage CV: s1, S2+ Resp; even and unlabored - 750 cc on IS Abd: soft, ND, mildly tender near midline incision. midline dressing with minimal serosang staining. L sided ES drain with seropurulent drainage (130cc/24hr). No r/r/g Ext: no c/c/e - Labs 09/29/19 09:22 09/29/19 09:22 Diabetes panel 09/29/19 Range/Units 09:22 Sodium 143 (137-145) mmol/L Potassium 4.7 (3.6-5.0) mmol/L Chloride 110.2 H (98-107) mmol/L Carbon Dioxide 20 L (22-30) mmol/L BUN 14 (9-20) mg/dL Creatinine 0.7 L (0.8-1.5) mg/dL Glucose 126 H (75-100) mg/dL Calcium 8.5 (8.4-10.2) mg/dL Calcium panel 09/29/19 Range/Units 09:22 Calcium 8.5 (8.4-10.2) mg/dL Pituitary panel 09/29/19 Range/Units 09:22 Sodium 143 (137-145) mmol/L Potassium 4.7 (3.6-5.0) mmol/L Chloride 110.2 H (98-107) mmol/L Carbon Dioxide 20 L (22-30) mmol/L BUN 14 (9-20) mg/dL Creatinine 0.7 L (0.8-1.5) mg/dL Glucose 126 H (75-100) mg/dL Calcium 8.5 (8.4-10.2) mg/dL Adrenal panel 09/29/19 Range/Units 09:22 Sodium 143 (137-145) mmol/L Potassium 4.7 (3.6-5.0) mmol/L Chloride 110.2 H (98-107) mmol/L Carbon Dioxide 20 L (22-30) mmol/L BUN 14 (9-20) mg/dL Creatinine 0.7 L (0.8-1.5) mg/dL Glucose 126 H (75-100) mg/dL Calcium 8.5 (8.4-10.2) mg/dL
[2019-09-29] MEDS: PRAVASTATIN 40 MG TAB PO SCH (22:36)
[2019-09-30] MEDS: KETOROLAC 30 MG/1 ML INJ IV SCH ×2 (00:54→06:01)
[2019-09-30] MEDS: IPRATROPIUM/ALBUTEROL SULFATE 3 ML AMPUL.NEB IH SCH ×3 (02:33→22:10)
[2019-09-30] MEDS: SODIUM CHLORIDE 0.9% 1000 ML 1,000 ML IV SCH (02:49)
[2019-09-30] MEDS: HYDROmorphone 1 MG/1 ML INJ IV PRN ×3 (04:51→21:50)
[2019-09-30] MEDS: metroNIDAZOLE/NS 500 MG/100 ML 500 MG/100 ML BAG IV SCH ×3 (06:00→21:50)
[2019-09-30] MEDS: BUDESONIDE 0.5 MG/2 ML NEBU IH SCH ×2 (08:31→20:00)
[2019-09-30 08:32] LABS: BUN/Creatinine Ratio 26; Blood Urea Nitrogen 21 mg/dL (9-20); Calcium 8.4 mg/dL (8.4-10.2); Hemolysis Index 6
[2019-09-30] MEDS: INSULIN REGULAR, HUMAN 100 UNITS/1 ML SUB-Q SCH ×2 (09:28→14:03)
[2019-09-30] MEDS: CITALOPRAM 20 MG TAB PO SCH (09:35)
[2019-09-30] MEDS: METOPROLOL TARTRATE 100 MG TAB PO SCH ×2 (09:35→21:50)
[2019-09-30] MEDS: ENOXAPARIN 40 MG/0.4 ML INJ SUB-Q SCH (09:36)
[2019-09-30] MEDS: LISINOPRIL 20 MG TAB PO SCH (09:36)
[2019-09-30] MEDS ORDERED: METOCLOPRAMIDE 10 MG/2 ML INJ IV ONE (11:17)
--- NOTE | 2019-09-30 11:30 | Progress Note ---
Assessment and Plan 54 yo M with large bowel perforation s/p Dx laparoscopy, ex lap, Partial colon resection with primary anastomosis, splenic flexure mobilization POD 2 and Dx lap, peritoneal lavage POD 4 Pt stable at the moment. Stat vital signs show P of 77, BP 150/90, SPo2 95 on RA. Plan: 1. NPO 2. NGT clamped - do not manipulate 3. IVF 4. stat CBC, INR, Type and screen. Will type and cross for 2 Units of PRBC 5. stop lovenox, asa, and toradol 6. reglan 10mg IV x 1 dose per GI 7. Initiate protonix gtt 8. Es drain - monitor output 9. DVT ppx- SCDs only 10. prn pain control 11. OOB/chair Discussed with Dr. Amado and Dr. Kumar. Pt will undergo EGD today. Will monitor Hb and transfuse as needed. Pt to be upgraded to IMCU. Plan discussed with patient. His is on the way to the hospital and he has communicated with her. Thank you, please call with questions. Subjective Date of service: 09/30/19 Narrative: Pt seen and examined. States he had flatus. No n/v. Tolerated ice chips. No f/c. He states his NGT was coming out and so he pushed it back in approximately 15 m inutes before I came into the room. 5 minutes later he noticed a large amount of fresh blood coming through the NGT into the tubing. Per nursing approximately 400cc of dark red blood aspirated in 10 minutes. Pt denies lightheadedness, dizziness. Objective Vital Signs - 12hr 09/29/19 09/30/19 09/30/19 23:52 02:00 04:29 Temperature 97.8 F Pulse Rate 87 79 Pulse Rate [ 85 Anterior Bilateral Upper Lobe] Pulse Rate [ 85 Bilateral Bases ] Respiratory 22 Rate Respiratory 18 Rate [Anterior Bilateral Upper Lobe] Respiratory 18 Rate [Bilateral Bases] Blood Pressure 133/63 O2 Sat by Pulse 93 Oximetry 09/30/19 09/30/19 09/30/19 04:30 08:49 08:50 Temperature 98.0 F 97.6 F Pulse Rate 82 83 Pulse Rate [ 91 H Anterior Bilateral Upper Lobe] Pulse Rate [ Bilateral Bases ] Respiratory 20 18 Rate Respiratory 20 Rate [Anterior Bilateral Upper Lobe] Respiratory Rate [Bilateral Bases] Blood Pressure 155/76 163/73 O2 Sat by Pulse 91 94 95 Oximetry 09/30/19 09/30/19 09/30/19 09:35 09:36 10:00 Temperature Pulse Rate 83 83 Pulse Rate [ Anterior Bilateral Upper Lobe] Pulse Rate [ Bilateral Bases ] Respiratory 20 Rate Respiratory Rate [Anterior Bilateral Upper Lobe] Respiratory Rate [Bilateral Bases] Blood Pressure 163/73 163/73 O2 Sat by Pulse 95 Oximetry - General physical appearance Narrative Exam: Gen: AAOx3. NAD ENT: NGT with dark venous blood - clotted in tubing and canister. Tubing flushed and NGT irrigated with 200cc of water. Irrigant eventually returning light red. Tube clamped CV: s1, S1+. Resp; even and unlabored Abd: soft, ND, mild TTP near incision. Incision c/d/i. All packing removed. ES drain seropurulent in bulb, more serous/clear in tubing. Fluff gauze and coversite dressing applied Ext: no c/c/e - Labs 09/29/19 09:22 09/30/19 07:40 Diabetes panel 09/30/19 Range/Units 07:40 Sodium 147 H (137-145) mmol/L Potassium 4.0 (3.6-5.0) mmol/L Chloride 111.0 H (98-107) mmol/L Carbon Dioxide 22 (22-30) mmol/L BUN 21 H (9-20) mg/dL Creatinine 0.8 (0.8-1.5) mg/dL Glucose 86 (75-100) mg/dL Calcium 8.4 (8.4-10.2) mg/dL Calcium panel 09/30/19 Range/Units 07:40 Calcium 8.4 (8.4-10.2) mg/dL Pituitary panel 09/30/19 Range/Units 07:40 Sodium 147 H (137-145) mmol/L Potassium 4.0 (3.6-5.0) mmol/L Chloride 111.0 H (98-107) mmol/L Carbon Dioxide 22 (22-30) mmol/L BUN 21 H (9-20) mg/dL Creatinine 0.8 (0.8-1.5) mg/dL Glucose 86 (75-100) mg/dL Calcium 8.4 (8.4-10.2) mg/dL Adrenal panel 11/17/19 Range/Units 07:40 Sodium 147 H (137-145) mmol/L Potassium 4.0 (3.6-5.0) mmol/L Chloride 111.0 H (98-107) mmol/L Carbon Dioxide 22 (22-30) mmol/L BUN 21 H (9-20) mg/dL Creatinine 0.8 (0.8-1.5) mg/dL Glucose 86 (75-100) mg/dL Calcium 8.4 (8.4-10.2) mg/dL
[2019-09-30] MEDS ORDERED: SODIUM CHLORIDE 0.9% 500 ML 500 ML IV ONE (11:36)
[2019-09-30 12:03] LABS: Hematocrit 34.8 % (35.5-45.6); Hemoglobin 11.9 gm/dl (11.8-15.2); Mean Corpuscular HGB Conc 34 % (32-34); Mean Corpuscular Volume 91 fl (84-94); Red Cell Distribution Width 14.4 % (13.2-15.2)
[2019-09-30] MEDS: SODIUM CHLORIDE 0.45% 1000 ML 1,000 ML IV SCH (12:03)
[2019-09-30 12:04] LABS: Platelet Count 150 K/mm3 (140-440)
[2019-09-30] MEDS ORDERED: PANTOPRAZOLE 40 MG INJ IV ONE (12:07)
[2019-09-30] MEDS: PANTOPRAZOLE 80 MG in SODIUM CHLORIDE 0.9% 100 ML IV SCH ×2 (12:11→22:33)
[2019-09-30 12:14] LABS: INR 1.19 (0.87-1.13)
[2019-09-30] MEDS ORDERED: WATER FOR IRRIG STERILE 250 ML BOTTLE IR ONE (12:36)
[2019-09-30] MEDS ORDERED: WATER FOR IRRIG STERILE 1,000 ML BOTTLE ONE (12:36)
[2019-09-30] MEDS ORDERED: SODIUM CHLORIDE 0.9% 1000 ML 1,000 ML ONE (12:36)
[2019-09-30] MEDS ORDERED: EPINEPHrine 1:10,000 1 MG/10 ML SYRINGE ONE (12:37)
--- NOTE | 2019-09-30 12:42 | Anesthesia Day of Surgery ---
Anesthesia Day of Surgery - Day of Surgery Patient Examined: Yes Patient H&P Reviewed: Yes Patient is NPO: Yes Beta Blockers: Yes
[2019-09-30] MEDS ORDERED: PROPOFOL 200 MG/20 ML VIAL IV ONE ×2 (12:53)
--- NOTE | 2019-09-30 13:24 | Operative Report ---
Operative Report Operative Report: Esophagogastroduodenoscopy Procedure Note with Clip placement/control of bleeding Date of procedure: 09/30/2019 Endoscopist: Andres Kumar Pre-op diagnosis/indication: GI bleed Post-op diagnosis: Distal esophagus ulcer, proximal gastric body ulcer with bleeding stigmata s/p clip placement MEDICATIONS: MAC COMPLICATIONS: No immediate complications ESTIMATED BLOOD LOSS: Minimal DESCRIPTION OF PROCEDURE: After consent was obtained, the patient was placed in the left lateral decubitis position. The fujinon endoscope was inserted into the patient's mouth under direct vision and advanced to the 2nd portion of the duodenum without difficulty. The patient tolerated the procedure well. The views of the mucosa were good. The patient's vital signs were monitored continuously throughout the procedure. FINDINGS: There was an ~ 1 cm clean based ulcer in the distal esophagus. No high risk bleeding stigmata. There was old appearing blood in the fundus and proximal body of the stomach. There was an ~8 mm ulcer in the lesser curvature or the proximal body. There was a visible vessel. One clip was placed successfully. No active bleeding was seen at the end of the procedure. The duodenum appeared normal. IMPRESSION: 1. Proximal gastric body ulcer with bleeding stigmata/visible vessel s/p clip placement. 2. Distal esophageal ulcer without high risk bleeding stigmata Suspect ulcers are due to NG related trauma (based on location and appearance). NG tube was thus removed during the procedure. RECOMMENDATIONS: -cont PPI drip overnight and tomorrow -will start carafate -will keep NG tube out (discussed with surgery) -okay to start clears tonight if no further bleeding and H/H stable
--- NOTE | 2019-09-30 13:44 | Post Anesthesia Evaluation ---
- Post Anesthesia Evaluation Patient Participated: Yes Airway Patent: Yes Stable Respiratory Function: Yes Nausea/Vomiting: No Temp > 96.8F: Yes Pain Manageable: Yes Adequeate Hydration: Yes Anesthesia Complications: No Block Receding Appropriately: Not Applicable Patient on Ventilator: No Other Comments: FBS 73 and juice given
[2019-09-30] MEDS ORDERED: SODIUM CHLORIDE 0.9% 1000 ML 1,000 ML IV SCH ×2 (14:00)
--- NOTE | 2019-09-30 14:00 | Progress Note ---
Assessment and Plan /Acute upper GI bleed - likely from NG tube related trauma - start on protonic drip, monitor h/h - plan for EGD today, transfer to IMCU /Large bowel perforation s/p dx lap with washout on 09/26 followed by exploratory laparotomy with Partial colon resection with primary anastomosis on 09/28/19 Placed on NG suction, nothing by mouth surgery following, if EGD normal and no further GI may start on clear liquid /HTN, clonidine patch and IV hydralazine as needed /COPD with acute respiratory failure - Respiratory status declined following surgery - expected with h/o copd - cont nebs, wean off O2 as tolerated, cont iv steroid - pulmonary following /DVT Px, lovenox The high probability of a clinically significant, sudden or life threatening deterioration of the [multiple] system(s) required my full and direct attention, intervention and personal management. The aggregate critical care time was [] minutes. This time is in addition to time spent performing reported procedures but includes the following: [x] Data Review and interpretation [x] Patient assessment and monitoring of vital signs [x] Documentation [x] Medication orders and management Brief History: 54yo M with multiple medical problems presents with severe abdominal pain to the emergency room after having a colonoscopy. Further work up in the Er showed localized peritonitis from a small perforation involving the descending colon. taken to OR for dx lap and washout. Overnight, patient developed worsening abdominal pain and stat CT showed signs of perforation. Taken back to the OR and found to have a perforation, and had part ial resection on 09/28/19. Developed upper GI bleed this am with 400cc blood came up from NG tube, GI planning for EGD, placed on PPI drip. Physical exam: General appearance: Present: mild distress, obese, other (appears in pain and i ll looking) - EENT Eyes: PERRL, EOM intact ENT: hearing intact, clear oral mucosa Ears: bilateral: normal - Neck Neck: supple, normal ROM - Respiratory Respiratory effort: normal Respiratory: bilateral: CTA - Cardiovascular Rhythm: regular Heart Sounds: Present: S1 & S2. Absent: gallop, rub Extremities: pulses intact, No edema, normal color, Full ROM - Gastrointestinal General gastrointestinal: Present: soft, tender, hypoactive bowel sounds, other (surgical wound and drainage on place) - Integumentary Integumentary: clear, warm, dry - Musculoskeletal Musculoskeletal: 1, strength equal bilaterally - Neurologic Neurologic: moves all extremities - Psychiatric Psychiatric: memory intact, appropriate mood/affect, intact judgment & insight Subjective Date of service: 09/30/19 Principal diagnosis: colon perforation Interval history: Patient seen and examined. Medical records and medication list reviewed. Status post exploratory laparotomy followed by large bowel resection Patient on NG suction and nothing by mouth. Developed upper GI bleed this am with 400cc blood came up from NG tube - now stopped on my exam updated family member at bedside remained on supplemental O2 Objective - Constitutional Vitals: Vital Signs - 12hr 09/30/19 09/30/19 09/30/19 04:29 04:30 08:49 Temperature 98.0 F Pulse Rate 79 82 Pulse Rate [ 91 H Anterior Bilateral Upper Lobe] Respiratory 20 Rate Respiratory 20 Rate [Anterior Bilateral Upper Lobe] Blood Pressure 155/76 O2 Sat by Pulse 91 94 Oximetry 09/30/19 09/30/19 09/30/19 08:50 09:35 09:36 Temperature 97.6 F Pulse Rate 83 83 83 Pulse Rate [ Anterior Bilateral Upper Lobe] Respiratory 18 Rate Respiratory Rate [Anterior Bilateral Upper Lobe] Blood Pressure 163/73 163/73 163/73 O2 Sat by Pulse 95 Oximetry 09/30/19 09/30/19 10:00 12:42 Temperature 98.2 F Pulse Rate 77 Pulse Rate [ Anterior Bilateral Upper Lobe] Respiratory 20 18 Rate Respiratory Rate [Anterior Bilateral Upper Lobe] Blood Pressure 150/75 O2 Sat by Pulse 95 93 Oximetry - Labs CBC & Chem 7: 10/01/19 05:10 10/01/19 05:10 Labs: Abnormal lab results 09/28/19 09/30/19 09/30/19 Range/Units 08:25 07:40 11:52 WBC 13.2 H (4.5-11.0) K/mm3 Hct 34.8 L (35.5-45.6) % PT (12.2-14.9) Sec. INR (0.87-1.13) Sodium 147 H (137-145) mmol/L Chloride 111.0 H (98-107) mmol/L BUN 21 H (9-20) mg/dL POC Glucose 125 H (70-105) Crossmatch 09/30/19 09/30/19 Range/Units 11:52 11:52 WBC (4.5-11.0) K/mm3 Hct (35.5-45.6) % PT 15.0 H (12.2-14.9) Sec. INR 1.19 H (0.87-1.13) Sodium (137-145) mmol/L Chloride (98-107) mmol/L BUN (9-20) mg/dL POC Glucose (70-105) Crossmatch See Detail
--- NOTE | 2019-09-30 18:51 | Event Note ---
Date: 09/30/19 Discussed results of EGD with Dr. Kumar earlier. Distal esophageal and proximal gastric ulcers. One visible vessel clipped of proximal stomach ulcer. Old blood in stomach. No active bleeding. NGT removed. VSS have been stable. Hb 11.9 from 12.2. Plan: 1. continue PPI gtt, 2. continue to hold lovenox and asa, 3. repeat H/H tonight at 2200 and every 8 hours x3. 4. will start clear liquids. 5. Continue IVF 6. 2 Units PRBC on hold - may be transfused as needed Will follow up in am.
[2019-09-30 21:49] LABS: Hematocrit 36.5 % (35.5-45.6); Hemoglobin 12.1 gm/dl (11.8-15.2)
[2019-09-30] MEDS: PRAVASTATIN 40 MG TAB PO SCH (21:50)
[2019-10-01] MEDS: SODIUM CHLORIDE 0.45% 1000 ML 1,000 ML IV SCH ×2 (00:39→13:57)
[2019-10-01] MEDS: SUCRALFATE 1 GM/10 ML ORAL LIQD PO SCH ×7 (00:40→23:54)
[2019-10-01] MEDS: IPRATROPIUM/ALBUTEROL SULFATE 3 ML AMPUL.NEB IH SCH ×5 (01:19→20:36)
[2019-10-01 05:48] LABS: Basophils % (Auto) 0.3 % (0.0-1.8); Eosinophils # (Auto) 0.1 K/mm3 (0.0-0.4); Eosinophils % (Auto) 1.4 % (0.0-4.3); Hematocrit 34.9 % (35.5-45.6); Hemoglobin 11.7 gm/dl (11.8-15.2); Mean Corpuscular HGB Conc 34 % (32-34); Mean Corpuscular Volume 93 fl (84-94); Monocytes # (Auto) 0.7 K/mm3 (0.0-0.8); Monocytes % (Auto) 7.2 % (0.0-7.3); Platelet Count 205 K/mm3 (140-440); Red Blood Count 3.75 M/mm3 (3.65-5.03); Red Cell Distribution Width 14.4 % (13.2-15.2)
[2019-10-01 06:08] LABS: BUN/Creatinine Ratio 29; Blood Urea Nitrogen 23 mg/dL (9-20); Calcium 8.3 mg/dL (8.4-10.2); Hemolysis Index 4
[2019-10-01] MEDS: metroNIDAZOLE/NS 500 MG/100 ML 500 MG/100 ML BAG IV SCH ×3 (06:17→22:45)
[2019-10-01] MEDS: HYDROmorphone 1 MG/1 ML INJ IV PRN ×3 (07:49→23:54)
[2019-10-01] MEDS: BUDESONIDE 0.5 MG/2 ML NEBU IH SCH ×2 (08:08→20:36)
[2019-10-01] MEDS: INSULIN REGULAR, HUMAN 100 UNITS/1 ML SUB-Q SCH ×6 (08:20→23:26)
--- NOTE | 2019-10-01 08:51 | Progress Note ---
Assessment and Plan - Patient Problems (1) Large bowel perforation Onset Date: ~09/25/19 Current Visit: Yes Status: Acute Plan to address problem: Pt stable. s/p dx lap with washout - 09/26; ex lap with partial colon resection - 09/28 - POD#3. Pt looks much better. GI bleed over the weekend. Hgb stable. Rec: 1) advance to soft diet 2) Continue Abx for at least 1 week 3) Ambulate 4) cont de jesus due to retention 5) Encourage IS use Please call with questions. Subjective Date of service: 10/01/19 Patient Reports: Positive: feels better, pain is less, tolerating liquids well, flatus, no bowel movement. Negative: nausea, vomiting Objective Vital Signs - 12hr 09/30/19 10/01/19 10/01/19 21:50 00:00 01:30 Temperature 99.8 F H Pulse Rate 81 Pulse Rate [ 72 Anterior Throughout] Respiratory 20 Rate [Anterior Throughout] Blood Pressure 148/64 O2 Sat by Pulse Oximetry 10/01/19 10/01/19 10/01/19 01:40 04:00 08:00 Temperature 98.6 F 98.3 F Pulse Rate Pulse Rate [ 76 Anterior Throughout] Respiratory 20 Rate [Anterior Throughout] Blood Pressure O2 Sat by Pulse 96 Oximetry 10/01/19 08:08 Temperature Pulse Rate Pulse Rate [ Anterior Throughout] Respiratory Rate [Anterior Throughout] Blood Pressure O2 Sat by Pulse 93 Oximetry - General physical appearance no distress, no pain, other (looks better) - Eyes normal occular movement - Respiratory normal expansion, normal respiratory effort - Abdomen soft, not tender, bowel sounds hypoactive, not distended, not guarding, not rigid, surgical scars (C/D/I), other (ES with serosang drainage) - Integumentary other (mild patches of erythema on abdominal wall) - Psychiatric oriented to time, oriented to person, oriented to place, speech is normal, memory intact - Labs 10/01/19 05:10 10/01/19 05:10 Diabetes panel 10/01/19 Range/Units 05:10 Sodium 142 (137-145) mmol/L Potassium 3.8 (3.6-5.0) mmol/L Chloride 104.9 (98-107) mmol/L Carbon Dioxide 24 (22-30) mmol/L BUN 23 H (9-20) mg/dL Creatinine 0.8 (0.8-1.5) mg/dL Glucose 67 L (75-100) mg/dL Calcium 8.3 L (8.4-10.2) mg/dL Calcium panel 10/01/19 Range/Units 05:10 Calcium 8.3 L (8.4-10.2) mg/dL Pituitary panel 10/01/19 Range/Units 05:10 Sodium 142 (137-145) mmol/L Potassium 3.8 (3.6-5.0) mmol/L Chloride 104.9 (98-107) mmol/L Carbon Dioxide 24 (22-30) mmol/L BUN 23 H (9-20) mg/dL Creatinine 0.8 (0.8-1.5) mg/dL Glucose 67 L (75-100) mg/dL Calcium 8.3 L (8.4-10.2) mg/dL Adrenal panel 10/01/19 Range/Units 05:10 Sodium 142 (137-145) mmol/L Potassium 3.8 (3.6-5.0) mmol/L Chloride 104.9 (98-107) mmol/L Carbon Dioxide 24 (22-30) mmol/L BUN 23 H (9-20) mg/dL Creatinine 0.8 (0.8-1.5) mg/dL Glucose 67 L (75-100) mg/dL Calcium 8.3 L (8.4-10.2) mg/dL
[2019-10-01] MEDS: CITALOPRAM 20 MG TAB PO SCH (09:50)
[2019-10-01] MEDS: METOPROLOL TARTRATE 100 MG TAB PO SCH ×2 (09:50→22:46)
[2019-10-01] MEDS: LISINOPRIL 20 MG TAB PO SCH (09:51)
[2019-10-01] MEDS: PANTOPRAZOLE 80 MG in SODIUM CHLORIDE 0.9% 100 ML IV SCH (10:08)
--- NOTE | 2019-10-01 13:44 | Gastroenterology Progress Note ---
<RAFAEL STILL - Last Filed: 10/01/19 13:53> Assessment and Plan 1.UGIB -H/H 11.7/34.9-stable -continue to monitor H/H and transfuse as needed -no active signs of bleeding overnight or this am -s/p EGD yesterday (09/30/19) that showed: 1. Proximal gastric body ulcer with bleeding stigmata/visible vessel s/p clip placement. 2. Distal esophageal ulcer without high risk bleeding stigmata -continue protonix drip today then transition to BID tomorrow -continue carafate -continue supportive care -will follow 2.post polypectomy perforation -s/p dx lap with washout - 09/26; ex lap with partial colon resection - 09/28 -path negative for malignancy -WBC now WNL -continue antibiotics and supportive care -NGT now removed- tolerating diet -surgery following Subjective Date of service: 10/01/19 Principal diagnosis: colon perforation Interval history: No active signs of bleeding overnight or this am. Reports abd pain improving. No N/V or BM. Tolerating liquids. Objective - Constitutional Vitals: Temp Pulse Resp BP Pulse Ox 98.3 F 66 20 156/78 95 10/01/19 08:00 10/01/19 10:40 10/01/19 08:00 10/01/19 10:40 10/01/19 10:40 General appearance: no acute distress - EENT Eyes: PERRL, EOM intact ENT: hearing intact - Cardiovascular Rhythm: regular - Gastrointestinal General gastrointestinal: Present: soft, tender (slight), non-distended, hypoactive bowel sounds, other (+surgical site, +ES drain) - Integumentary Integumentary: Present: warm, dry - Neurologic Neurological: alert and oriented x3 - Labs CBC & Chem 7: 10/01/19 05:10 10/01/19 05:10 Labs: Laboratory Results - last 24 hr 09/30/19 09/30/19 09/30/19 11:52 13:46 16:44 WBC RBC Hgb Hct MCV MCH MCHC RDW Plt Count Lymph % (Auto) [place] % (Auto) Eos % (Auto) Baso % (Auto) Lymph # [place] # Eos # Baso # Seg Neutrophils % Seg Neutrophils # Sodium Potassium Chloride Carbon Dioxide Anion Gap BUN Creatinine Estimated GFR BUN/Creatinine Ratio Glucose POC Glucose 73 66 L Calcium Blood Type A POSITIVE Antibody Screen Negative Crossmatch See Detail 09/30/19 09/30/19 10/01/19 17:19 21:38 05:10 WBC 10.3 RBC 3.75 Hgb 12.1 11.7 L Hct 36.5 34.9 L MCV 93 MCH 31 MCHC 34 RDW 14.4 Plt Count 205 Lymph % (Auto) 10.0 L [place] % (Auto) 7.2 Eos % (Auto) 1.4 Baso % (Auto) 0.3 Lymph # 1.0 L [place] # 0.7 Eos # 0.1 Baso # 0.0 Seg Neutrophils % 81.1 H Seg Neutrophils # 8.4 H Sodium Potassium Chloride Carbon Dioxide Anion Gap BUN Creatinine Estimated GFR BUN/Creatinine Ratio Glucose POC Glucose 139 H Calcium Blood Type Antibody Screen Crossmatch 10/01/19 10/01/19 10/01/19 05:10 07:52 13:02 WBC RBC Hgb Hct MCV MCH MCHC RDW Plt Count Lymph % (Auto) [place] % (Auto) Eos % (Auto) Baso % (Auto) Lymph # [place] # Eos # Baso # Seg Neutrophils % Seg Neutrophils # Sodium 142 Potassium 3.8 Chloride 104.9 Carbon Dioxide 24 Anion Gap 17 BUN 23 H Creatinine 0.8 Estimated GFR > 60 BUN/Creatinine Ratio 29 Glucose 67 L POC Glucose 74 98 Calcium 8.3 L Blood Type Antibody Screen Crossmatch <CLARA MATTHEWS - Last Filed: 10/01/19 20:02> Assessment and Plan Patient seen and examined. Agree with note above. Objective - Constitutional Vitals: Temp Pulse Resp BP Pulse Ox 97.8 F 74 20 133/63 94 10/01/19 16:00 10/01/19 18:50 10/01/19 16:00 10/01/19 18:50 10/01/19 18:50 - Labs CBC & Chem 7: 10/01/19 14:52 10/01/19 05:10 Labs: Laboratory Results - last 24 hr 09/30/19 10/01/19 10/01/19 21:38 05:10 05:10 WBC 10.3 RBC 3.75 Hgb 12.1 11.7 L Hct 36.5 34.9 L MCV 93 MCH 31 MCHC 34 RDW 14.4 Plt Count 205 Lymph % (Auto) 10.0 L [place] % (Auto) 7.2 Eos % (Auto) 1.4 Baso % (Auto) 0.3 Lymph # 1.0 L [place] # 0.7 Eos # 0.1 Baso # 0.0 Seg Neutrophils % 81.1 H Seg Neutrophils # 8.4 H Sodium 142 Potassium 3.8 Chloride 104.9 Carbon Dioxide 24 Anion Gap 17 BUN 23 H Creatinine 0.8 Estimated GFR > 60 BUN/Creatinine Ratio 29 Glucose 67 L POC Glucose Calcium 8.3 L 10/01/19 10/01/19 10/01/19 07:52 13:02 14:52 WBC RBC Hgb 11.8 Hct 35.2 L MCV MCH MCHC RDW Plt Count Lymph % (Auto) [place] % (Auto) Eos % (Auto) Baso % (Auto) Lymph # [place] # Eos # Baso # Seg Neutrophils % Seg Neutrophils # Sodium Potassium Chloride Carbon Dioxide Anion Gap BUN Creatinine Estimated GFR BUN/Creatinine Ratio Glucose POC Glucose 74 98 Calcium
[2019-10-01 15:36] LABS: Hematocrit 35.2 % (35.5-45.6); Hemoglobin 11.8 gm/dl (11.8-15.2)
--- NOTE | 2019-10-01 15:52 | Progress Note ---
Assessment and Plan /Acute upper GI bleed - likely from NG tube related trauma - started on protonic drip, monitor h/h - s/p EGD yesterday (09/30/19) that showed: 1. Proximal gastric body ulcer with bleeding stigmata/visible vessel s/p clip placement. 2. Distal esophageal ulcer without high risk bleeding stigmata -continue protonix drip today then transition to BID tomorrow /Large bowel perforation s/p dx lap with washout on 09/26 followed by exploratory laparotomy with Partial colon resection with primary anastomosis on 09/28/19 Placed on NG suction, nothing by mouth surgery following, pt is tolerating diet now Per GS need abx coverage for atleast one week /HTN, clonidine patch and IV hydralazine as needed /COPD with acute respiratory failure - Respiratory status declined following surgery - expected with h/o copd - cont nebs, wean off O2 as tolerated, cont iv steroid - pulmonary following /DVT Px, lovenox Brief History: 54yo M with multiple medical problems presents with severe abdominal pain to the emergency room after having a colonoscopy. Further work up in the Er showed localized peritonitis from a small perforation involving the descending colon. taken to OR for dx lap and washout. Overnight, patient developed worsening abdominal pain and stat CT showed signs of perforation. Taken back to the OR and found to have a perforation, and had partial resection on 09/28/19. Developed upper GI bleed this am with 400cc blood came up from NG tube, s/p EGD showed gastric ulcer due to NG tube trauma, placed on PPI drip. Tolerating diet Physical exam: General appearance: Present: mild distress, obese, other (appears in pain and ill looking) - EENT Eyes: PERRL, EOM intact ENT: hearing intact, clear oral mucosa Ears: bilateral: normal - Neck Neck: supple, normal ROM - Respiratory Respiratory effort: normal Respiratory: bilateral: CTA - Cardiovascular Rhythm: regular Heart Sounds: Present: S1 & S2. Absent: gallop, rub Extremities: pulses intact, No edema, normal color, Full ROM - Gastrointestinal General gastrointestinal: Present: soft, tender, hypoactive bowel sounds, other (surgical wound and drainage on place) - Integumentary Integumentary: clear, warm, dry - Musculoskeletal Musculoskeletal: 1, strength equal bilaterally - Neurologic Neurologic: moves all extremities - Psychiatric Psychiatric: memory intact, appropriate mood/affect, intact judgment & insight Subjective Date of service: 10/01/19 Principal diagnosis: colon perforation Interval history: Patient seen and examined. Medical records and medication list reviewed. doing well, tolerated diet updated family member at bedside remained on supplemental O2 transfer to [facility] [place] today Objective - Constitutional Vitals: Vital Signs - 12hr 10/01/19 10/01/19 10/01/19 04:00 04:10 04:20 Temperature 98.6 F Pulse Rate 71 68 70 Pulse Rate [ Anterior Throughout] Pulse Rate [ Bilateral Bases ] Respiratory Rate [Anterior Throughout] Respiratory Rate [Bilateral Bases] Blood Pressure 141/73 143/77 143/77 O2 Sat by Pulse 93 93 94 Oximetry 10/01/19 10/01/19 10/01/19 04:30 04:40 04:50 Temperature Pulse Rate 67 63 65 Pulse Rate [ Anterior Throughout] Pulse Rate [ Bilateral Bases ] Respiratory Rate [Anterior Throughout] Respiratory Rate [Bilateral Bases] Blood Pressure 143/77 143/77 143/77 O2 Sat by Pulse 94 94 95 Oximetry 10/01/19 10/01/19 10/01/19 05:00 05:10 05:20 Temperature Pulse Rate 66 67 68 Pulse Rate [ Anterior Throughout] Pulse Rate [ Bilateral Bases ] Respiratory Rate [Anterior Throughout] Respiratory Rate [Bilateral Bases] Blood Pressure 143/77 157/78 157/78 O2 Sat by Pulse 95 96 94 Oximetry 10/01/19 10/01/19 10/01/19 05:30 05:40 05:50 Temperature Pulse Rate 72 68 69 Pulse Rate [ Anterior Throughout] Pulse Rate [ Bilateral Bases ] Respiratory Rate [Anterior Throughout] Respiratory Rate [Bilateral Bases] Blood Pressure 157/78 157/78 157/78 O2 Sat by Pulse 94 94 96 Oximetry 10/01/19 10/01/19 10/01/19 06:00 06:10 06:20 Temperature Pulse Rate 73 70 72 Pulse Rate [ Anterior Throughout] Pulse Rate [ Bilateral Bases ] Respiratory Rate [Anterior Throughout] Respiratory Rate [Bilateral Bases] Blood Pressure 157/78 157/78 157/78 O2 Sat by Pulse 94 94 96 Oximetry 10/01/19 10/01/19 10/01/19 06:30 06:40 06:50 Temperature Pulse Rate 65 69 70 Pulse Rate [ Anterior Throughout] Pulse Rate [ Bilateral Bases ] Respiratory Rate [Anterior Throughout] Respiratory Rate [Bilateral Bases] Blood Pressure 157/78 156/83 156/83 O2 Sat by Pulse 94 94 94 Oximetry 10/01/19 10/01/19 10/01/19 07:00 07:10 07:20 Temperature Pulse Rate 73 73 85 Pulse Rate [ Anterior Throughout] Pulse Rate [ Bilateral Bases ] Respiratory Rate [Anterior Throughout] Respiratory Rate [Bilateral Bases] Blood Pressure 156/83 156/83 156/83 O2 Sat by Pulse 98 91 92 Oximetry 10/01/19 10/01/19 10/01/19 07:30 07:40 07:50 Temperature Pulse Rate 71 68 72 Pulse Rate [ Anterior Throughout] Pulse Rate [ Bilateral Bases ] Respiratory Rate [Anterior Throughout] Respiratory Rate [Bilateral Bases] Blood Pressure 156/83 156/83 156/83 O2 Sat by Pulse 92 94 95 Oximetry 10/01/19 10/01/19 10/01/19 08:00 08:08 08:10 Temperature 98.3 F Pulse Rate 72 76 Pulse Rate [ 76 Anterior Throughout] Pulse Rate [ Bilateral Bases ] Respiratory 20 Rate [Anterior Throughout] Respiratory Rate [Bilateral Bases] Blood Pressure 156/83 156/83 O2 Sat by Pulse 93 93 93 Oximetry 10/01/19 10/01/19 10/01/19 08:20 08:30 08:40 Temperature Pulse Rate 74 75 75 Pulse Rate [ Anterior Throughout] Pulse Rate [ Bilateral Bases ] Respiratory Rate [Anterior Throughout] Respiratory Rate [Bilateral Bases] Blood Pressure 156/83 156/83 146/72 O2 Sat by Pulse 94 92 90 Oximetry 10/01/19 10/01/19 10/01/19 08:50 09:00 09:10 Temperature Pulse Rate 76 80 78 Pulse Rate [ Anterior Throughout] Pulse Rate [ Bilateral Bases ] Respiratory Rate [Anterior Throughout] Respiratory Rate [Bilateral Bases] Blood Pressure 146/72 146/72 146/72 O2 Sat by Pulse 93 90 92 Oximetry 10/01/19 10/01/19 10/01/19 09:20 09:30 09:40 Temperature Pulse Rate 76 72 69 Pulse Rate [ Anterior Throughout] Pulse Rate [ Bilateral Bases ] Respiratory Rate [Anterior Throughout] Respiratory Rate [Bilateral Bases] Blood Pressure 146/72 146/72 146/72 O2 Sat by Pulse 91 92 93 Oximetry 10/01/19 10/01/19 10/01/19 09:50 09:51 10:00 Temperature Pulse Rate 75 78 72 Pulse Rate [ Anterior Throughout] Pulse Rate [ Bilateral Bases ] Respiratory Rate [Anterior Throughout] Respiratory Rate [Bilateral Bases] Blood Pressure 146/72 156/78 146/72 O2 Sat by Pulse 90 92 Oximetry 10/01/19 10/01/19 10/01/19 10:10 10:20 10:30 Temperature Pulse Rate 69 70 69 Pulse Rate [ Anterior Throughout] Pulse Rate [ Bilateral Bases ] Respiratory Rate [Anterior Throughout] Respiratory Rate [Bilateral Bases] Blood Pressure 156/78 156/78 156/78 O2 Sat by Pulse 93 93 94 Oximetry 10/01/19 10/01/19 10/01/19 10:40 10:50 11:00 Temperature Pulse Rate 66 64 66 Pulse Rate [ Anterior Throughout] Pulse Rate [ Bilateral Bases ] Respiratory Rate [Anterior Throughout] Respiratory Rate [Bilateral Bases] Blood Pressure 156/78 156/78 156/78 O2 Sat by Pulse 95 95 94 Oximetry 10/01/19 10/01/19 10/01/19 11:10 11:20 11:30 Temperature Pulse Rate 66 65 66 Pulse Rate [ Anterior Throughout] Pulse Rate [ Bilateral Bases ] Respiratory Rate [Anterior Throughout] Respiratory Rate [Bilateral Bases] Blood Pressure 157/77 157/77 157/77 O2 Sat by Pulse 94 97 95 Oximetry 10/01/19 10/01/19 10/01/19 11:40 11:50 12:00 Temperature 97.6 F Pulse Rate 64 66 64 Pulse Rate [ Anterior Throughout] Pulse Rate [ Bilateral Bases ] Respiratory Rate [Anterior Throughout] Respiratory Rate [Bilateral Bases] Blood Pressure 157/77 157/77 157/77 O2 Sat by Pulse 96 94 96 Oximetry 10/01/19 10/01/19 10/01/19 12:10 12:20 12:30 Temperature Pulse Rate 67 67 78 Pulse Rate [ Anterior Throughout] Pulse Rate [ Bilateral Bases ] Respiratory Rate [Anterior Throughout] Respiratory Rate [Bilateral Bases] Blood Pressure 157/82 157/82 157/82 O2 Sat by Pulse 96 95 96 Oximetry 10/01/19 10/01/19 10/01/19 12:40 12:50 13:00 Temperature Pulse Rate 76 73 74 Pulse Rate [ Anterior Throughout] Pulse Rate [ Bilateral Bases ] Respiratory Rate [Anterior Throughout] Respiratory Rate [Bilateral Bases] Blood Pressure 157/82 157/82 157/82 O2 Sat by Pulse 93 93 94 Oximetry 10/01/19 10/01/19 10/01/19 13:10 13:20 13:30 Temperature Pulse Rate 72 74 73 Pulse Rate [ Anterior Throughout] Pulse Rate [ Bilateral Bases ] Respiratory Rate [Anterior Throughout] Respiratory Rate [Bilateral Bases] Blood Pressure 131/68 131/68 131/68 O2 Sat by Pulse 97 94 93 Oximetry 10/01/19 10/01/19 10/01/19 13:40 13:50 14:00 Temperature Pulse Rate 72 71 70 Pulse Rate [ Anterior Throughout] Pulse Rate [ Bilateral Bases ] Respiratory Rate [Anterior Throughout] Respiratory Rate [Bilateral Bases] Blood Pressure 131/68 131/68 131/68 O2 Sat by Pulse 93 94 94 Oximetry 10/01/19 10/01/19 10/01/19 14:10 14:20 14:30 Temperature Pulse Rate 68 67 67 Pulse Rate [ Anterior Throughout] Pulse Rate [ Bilateral Bases ] Respiratory Rate [Anterior Throughout] Respiratory Rate [Bilateral Bases] Blood Pressure 131/69 131/68 131/68 O2 Sat by Pulse 93 95 94 Oximetry 10/01/19 10/01/19 10/01/19 14:40 14:50 14:52 Temperature Pulse Rate 66 71 Pulse Rate [ 73 Anterior Throughout] Pulse Rate [ 66 Bilateral Bases ] Respiratory Rate [Anterior Throughout] Respiratory 20 Rate [Bilateral Bases] Blood Pressure 131/68 131/68 O2 Sat by Pulse 98 96 Oximetry 10/01/19 10/01/19 15:00 15:10 Temperature Pulse Rate 68 69 Pulse Rate [ Anterior Throughout] Pulse Rate [ Bilateral Bases ] Respiratory Rate [Anterior Throughout] Respiratory Rate [Bilateral Bases] Blood Pressure 131/68 144/76 O2 Sat by Pulse 94 93 Oximetry - Labs CBC & Chem 7: 10/01/19 14:52 10/01/19 05:10 Labs: Abnormal lab results 09/30/19 09/30/19 09/30/19 Range/Units 11:52 16:44 17:19 Hgb (11.8-15.2) gm/dl Hct (35.5-45.6) % Lymph % (Auto) (13.4-35.0) % Lymph # (1.2-5.4) K/mm3 Seg Neutrophils % (40.0-70.0) % Seg Neutrophils # (1.8-7.7) K/mm3 BUN (9-20) mg/dL Glucose (75-100) mg/dL POC Glucose 66 L 139 H (70-105) Calcium (8.4-10.2) mg/dL Crossmatch See Detail 10/01/19 10/01/19 10/01/19 Range/Units 05:10 05:10 14:52 Hgb 11.7 L (11.8-15.2) gm/dl Hct 34.9 L 35.2 L (35.5-45.6) % Lymph % (Auto) 10.0 L (13.4-35.0) % Lymph # 1.0 L (1.2-5.4) K/mm3 Seg Neutrophils % 81.1 H (40.0-70.0) % Seg Neutrophils # 8.4 H (1.8-7.7) K/mm3 BUN 23 H (9-20) mg/dL Glucose 67 L (75-100) mg/dL POC Glucose (70-105) Calcium 8.3 L (8.4-10.2) mg/dL Crossmatch
[2019-10-01] MEDS: PRAVASTATIN 40 MG TAB PO SCH (22:45)
[2019-10-02] MEDS: PANTOPRAZOLE 80 MG in SODIUM CHLORIDE 0.9% 100 ML IV SCH ×2 (00:12→21:42)
[2019-10-02 03:19] LABS: Hematocrit 37.8 % (35.5-45.6); Hemoglobin 12.6 gm/dl (11.8-15.2)
[2019-10-02] MEDS: SUCRALFATE 1 GM/10 ML ORAL LIQD PO SCH ×4 (05:43→23:27)
[2019-10-02] MEDS: metroNIDAZOLE/NS 500 MG/100 ML 500 MG/100 ML BAG IV SCH ×3 (05:43→21:41)
[2019-10-02] MEDS: HYDROcodone/ACETAMINOPHEN 5-325 MG TAB PO PRN ×3 (05:50→23:24)
--- NOTE | 2019-10-02 08:47 | Progress Note ---
Assessment and Plan - Patient Problems (1) Large bowel perforation Onset Date: ~09/25/19 Current Visit: Yes Status: Acute Plan to address problem: Pt stable. s/p dx lap with washout - 09/26; ex lap with partial colon resection - 09/28 - POD#4. Pt looks much better. GI bleed over the weekend. Hgb stable. The bulb was found off the drain. Not sure how long it has been like that. Would prefer to have left it in, but worried about infection risk now that the circuit was open for an unknown period of time. Drain removed without difficulty. From a surgical standpoint, he is clear for discharge. Rec: 1) advance to regular diet 2) Continue Abx for at least 1 week 3) Ambulate 4) cont de jesus due to retention. would try removing it after a total of 3 days. 5) Encourage IS use Please call with questions. Subjective Date of service: 10/02/19 Patient Reports: Positive: no new complaints, feels better, pain is less, tolerating liquids well, flatus, no bowel movement. Negative: nausea, vomiting Objective Vital Signs - 12hr 10/01/19 10/01/19 10/01/19 20:50 21:00 21:10 Temperature Pulse Rate 78 78 78 Pulse Rate [ Apical] Respiratory Rate Respiratory Rate [Abdomen] Blood Pressure 143/74 159/82 159/82 O2 Sat by Pulse 91 91 94 Oximetry 10/01/19 10/01/19 10/01/19 21:20 21:30 21:40 Temperature Pulse Rate 79 86 83 Pulse Rate [ Apical] Respiratory Rate Respiratory Rate [Abdomen] Blood Pressure 159/82 159/82 159/82 O2 Sat by Pulse 95 93 95 Oximetry 10/01/19 10/01/19 10/01/19 21:50 22:00 22:10 Temperature Pulse Rate 77 80 78 Pulse Rate [ Apical] Respiratory Rate Respiratory Rate [Abdomen] Blood Pressure 159/82 159/82 165/81 O2 Sat by Pulse 91 94 94 Oximetry 10/01/19 10/01/19 10/01/19 22:20 22:33 22:40 Temperature Pulse Rate 83 79 76 Pulse Rate [ Apical] Respiratory Rate Respiratory Rate [Abdomen] Blood Pressure 165/81 O2 Sat by Pulse 92 93 93 Oximetry 10/01/19 10/01/19 10/01/19 22:46 22:50 23:00 Temperature Pulse Rate 75 78 77 Pulse Rate [ Apical] Respiratory Rate Respiratory Rate [Abdomen] Blood Pressure 177/88 177/86 177/86 O2 Sat by Pulse 93 93 Oximetry 10/01/19 10/01/19 10/01/19 23:20 23:50 23:52 Temperature 97.6 F Pulse Rate 76 76 Pulse Rate [ Apical] Respiratory 20 Rate Respiratory Rate [Abdomen] Blood Pressure 151/60 O2 Sat by Pulse 91 Oximetry 10/01/19 10/02/19 10/02/19 23:54 00:10 00:20 Temperature Pulse Rate Pulse Rate [ 76 Apical] Respiratory 18 18 Rate Respiratory 18 Rate [Abdomen] Blood Pressure O2 Sat by Pulse 92 Oximetry 10/02/19 10/02/19 10/02/19 00:24 04:46 04:48 Temperature 97.9 F Pulse Rate 75 Pulse Rate [ Apical] Respiratory 18 20 Rate Respiratory Rate [Abdomen] Blood Pressure 160/77 O2 Sat by Pulse 92 Oximetry 10/02/19 10/02/19 05:50 08:14 Temperature 97.9 F Pulse Rate 72 Pulse Rate [ Apical] Respiratory 18 18 Rate Respiratory Rate [Abdomen] Blood Pressure 169/94 O2 Sat by Pulse 94 Oximetry - General physical appearance no distress, no pain, other (looks better) - Eyes normal occular movement - Respiratory normal expansion, other (slight increased work of breathing) - Abdomen soft, not tender, bowel sounds hypoactive, not distended, not guarding, not rigid, surgical scars (C/D/I), other (ES with serosang drainage. Bulb found off tubing) - Integumentary no rash, no growths, no abnormal pigmentation - Psychiatric oriented to time, oriented to person, oriented to place, speech is normal, memory intact - Labs 10/02/19 01:53 10/01/19 05:10
[2019-10-02] MEDS: IPRATROPIUM/ALBUTEROL SULFATE 3 ML AMPUL.NEB IH SCH ×2 (08:49→21:14)
[2019-10-02] MEDS: BUDESONIDE 0.5 MG/2 ML NEBU IH SCH ×2 (08:50→21:14)
[2019-10-02] MEDS: INSULIN REGULAR, HUMAN 100 UNITS/1 ML SUB-Q SCH ×4 (09:56→21:55)
[2019-10-02] MEDS: PSYLLIUM SEED (WITH SUGAR) 3.4 GM PACKET PO SCH (10:12)
[2019-10-02] MEDS: CITALOPRAM 20 MG TAB PO SCH (10:12)
[2019-10-02] MEDS: LISINOPRIL 20 MG TAB PO SCH (10:12)
[2019-10-02] MEDS: METOPROLOL TARTRATE 100 MG TAB PO SCH ×2 (10:13→21:41)
--- NOTE | 2019-10-02 11:05 | Gastroenterology Progress Note ---
<RAFAEL STILL - Last Filed: 10/02/19 11:06> Assessment and Plan 1.UGIB -H/H 12.6/37.8-trending up -continue to monitor H/H and transfuse as needed -no active signs of bleeding overnight or this am -s/p EGD 09/30/19 that showed: 1. Proximal gastric body ulcer with bleeding stigmata/visible vessel s/p clip placement. 2. Distal esophageal ulcer without high risk bleeding stigmata -d/c protonix drip and transition to PO BID -continue carafate -okay to resume cardiac ASA per GI standpoint -continue supportive care -patient to be d/c on PPI as above with f/u in clinic in 1-2 weeks upon discharge 2.post polypectomy perforation -s/p dx lap with washout - 09/26; ex lap with partial colon resection - 09/28 -path negative for malignancy -WBC now WNL -continue antibiotics and supportive care -tolerating diet -further management per surgery -will sign off, please call if needed Subjective Date of service: 10/02/19 Principal diagnosis: colon perforation Interval history: No acute distress or active signs of bleeding overnight or this am. Tolerating diet. Objective - Constitutional Vitals: Temp Pulse Resp BP Pulse Ox 97.9 F 80 18 131/61 94 10/02/19 08:14 10/02/19 10:13 10/02/19 08:14 10/02/19 10:13 10/02/19 08:56 General appearance: no acute distress - EENT Eyes: PERRL, EOM intact ENT: hearing intact - Respiratory Respiratory effort: normal - Cardiovascular Rhythm: regular - Gastrointestinal General gastrointestinal: Present: soft, tender (slight), non-distended, hypoactive bowel sounds, other (+surgical sites) - Neurologic Neurological: alert and oriented x3 - Labs CBC & Chem 7: 10/02/19 01:53 10/01/19 05:10 Labs: Laboratory Results - last 24 hr 10/01/19 10/01/19 10/01/19 13:02 14:52 17:17 Hgb 11.8 Hct 35.2 L POC Glucose 98 73 10/01/19 10/02/19 10/02/19 21:58 01:53 08:20 Hgb 12.6 Hct 37.8 POC Glucose 80 83 <CLARA MATTHEWS A - Last Filed: 10/02/19 19:17> Assessment and Plan Pt seen and examined; agree with note above. please call as needed or with questions. Objective - Constitutional Vitals: Temp Pulse Resp BP Pulse Ox 97.9 F 68 16 158/73 91 10/02/19 16:09 10/02/19 16:09 10/02/19 18:36 10/02/19 16:09 10/02/19 16:09 - Labs CBC & Chem 7: 10/02/19 01:53 10/01/19 05:10 Labs: Laboratory Results - last 24 hr 10/01/19 10/01/19 10/02/19 17:17 21:58 01:53 Hgb 12.6 Hct 37.8 POC Glucose 73 80 10/02/19 10/02/19 10/02/19 08:20 11:10 12:04 Hgb Hct POC Glucose 83 120 H 118 H 10/02/19 16:16 Hgb Hct POC Glucose 99
[2019-10-02] MEDS: SODIUM CHLORIDE 0.45% 1000 ML 1,000 ML IV SCH (13:38)
[2019-10-02] MEDS ORDERED: FUROSEMIDE 40 MG/4 ML INJ IV ONE (16:47)
--- NOTE | 2019-10-02 16:47 | Progress Note ---
Assessment and Plan Assessment and plan: Patient is a 54 yo M with multiple medical problems presents with severe abdominal pain to the emergency room after having a colonoscopy. Further work up in the Er showed localized peritonitis from a small perforation involving the descending colon. taken to OR for dx lap and washout. Overnight, patient developed worsening abdominal pain and stat CT showed signs of perforation. Taken back to the OR and found to have a perforation, and had partial resection on 09/28/19. Developed upper GI bleed this am with 400cc blood came up from NG tube, s/p EGD showed gastric ulcer due to NG tube trauma, placed on PPI drip. Tolerating diet /Acute upper GI bleed - likely from NG tube related trauma - started on protonic drip, monitor h/h - s/p EGD yesterday (09/30/19) that showed: 1. Proximal gastric body ulcer with bleeding stigmata/visible vessel s/p clip placement. 2. Distal esophageal ulcer without high risk bleeding stigmata -continue protonix drip today then transition to BID tomorrow /Large bowel perforation s/p dx lap with washout on 09/26 followed by exploratory laparotomy with Partial colon resection with primary anastomosis on 09/28/19 Placed on NG suction, nothing by mouth surgery following, pt is tolerating diet now Per GS need abx coverage for atleast one week /HTN, clonidine patch and IV hydralazine as needed /COPD with acute respiratory failure - Respiratory status declined following surgery - expected with h/o copd - cont nebs, wean off O2 as tolerated, cont iv steroid - pulmonary following /DVT Px, lovenox History Interval history: Patient was seen and examined. Follow-up on current diagnosis bowel perforation. No overnight events reported to me. Patient denies any chest pain, shortness breath, nausea/vomiting or severe headaches. Imaging, nursing note, chart, labs and old chart reviewed. Discussed with patient. Hospitalist Physical - Physical exam Narrative exam: Gen: WDWN, NAD, Awake, Alert, Orientated HEENT: NCAT, EOMI, PERRL, OP Clear Neck: supple, no adenopathy, no thyromegaly, no JVD CVS/Heart: RRR, normal S1S2, pulses present bilaterally Chest/Lungs: CTA B, Symmetrical chest expansion, good air entry bilaterally GI/Abdomen: soft, surgical dsg intact, +bowel sounds, no guarding or rebound /Bladder: no suprapubic tenderness, no CVA or paraspinal tenderness Extermity/Skin: ble pitting edema, no obvious rash MSK: FROM x 4 Neuro: CN 2-12 grossly intact, no new focal deficits Psych: calm - Constitutional Vitals: Temp Pulse Resp BP Pulse Ox 97.9 F 68 18 158/73 91 10/02/19 16:09 10/02/19 16:09 10/02/19 16:09 10/02/19 16:09 10/02/19 16:09 General appearance: Present: obese. Absent: mild distress, other Results - Labs CBC & Chem 7: 10/02/19 01:53 10/01/19 05:10 Labs: Laboratory Last Values WBC 10.3 K/mm3 (4.5-11.0) 10/01/19 05:10 RBC 3.75 M/mm3 (3.65-5.03) 10/01/19 05:10 Hgb 12.6 gm/dl (11.8-15.2) 10/02/19 01:53 Hct 37.8 % (35.5-45.6) 10/02/19 01:53 MCV 93 fl (84-94) 10/01/19 05:10 MCH 31 pg (28-32) 10/01/19 05:10 MCHC 34 % (32-34) 10/01/19 05:10 RDW 14.4 % (13.2-15.2) 10/01/19 05:10 Plt Count 205 K/mm3 (140-440) 10/01/19 05:10 Lymph % (Auto) 10.0 % (13.4-35.0) L 10/01/19 05:10 [place] % (Auto) 7.2 % (0.0-7.3) 10/01/19 05:10 Eos % (Auto) 1.4 % (0.0-4.3) 10/01/19 05:10 Baso % (Auto) 0.3 % (0.0-1.8) 10/01/19 05:10 Lymph # 1.0 K/mm3 (1.2-5.4) L 10/01/19 05:10 [place] # 0.7 K/mm3 (0.0-0.8) 10/01/19 05:10 Eos # 0.1 K/mm3 (0.0-0.4) 10/01/19 05:10 Baso # 0.0 K/mm3 (0.0-0.1) 10/01/19 05:10 Add Manual Diff Complete 09/29/19 09:22 Total Counted 100 09/29/19 09:22 Seg Neutrophils % 81.1 % (40.0-70.0) H 10/01/19 05:10 Seg Neuts % (Manual) 86.0 % (40.0-70.0) H 09/29/19 09:22 Band Neutrophils % 6.0 % 09/29/19 09:22 Lymphocytes % (Manual) 6.0 % (13.4-35.0) L 09/29/19 09:22 Reactive Lymphs % (Man) 0 % 09/29/19 09:22 Monocytes % (Manual) 0 % (0.0-7.3) 09/29/19 09:22 Eosinophils % (Manual) 0 % (0.0-4.3) 09/29/19 09:22 Basophils % (Manual) 0 % (0.0-1.8) 09/29/19 09:22 Metamyelocytes % 2.0 % 09/29/19 09:22 Myelocytes % 0 % 09/29/19 09:22 Promyelocytes % 0 % 09/29/19 09:22 Blast Cells % 0 % 09/29/19 09:22 Nucleated RBC % Not Reportable 09/29/19 09:22 Seg Neutrophils # 8.4 K/mm3 (1.8-7.7) H 10/01/19 05:10 Seg Neutrophils # Man 9.4 K/mm3 (1.8-7.7) H 09/29/19 09:22 Band Neutrophils # 0.7 K/mm3 09/29/19 09:22 Lymphocytes # (Manual) 0.7 K/mm3 (1.2-5.4) L 09/29/19 09:22 Abs React Lymphs (Man) 0.0 K/mm3 09/29/19 09:22 Monocytes # (Manual) 0.0 K/mm3 (0.0-0.8) 09/29/19 09:22 Eosinophils # (Manual) 0.0 K/mm3 (0.0-0.4) 09/29/19 09:22 Basophils # (Manual) 0.0 K/mm3 (0.0-0.1) 09/29/19 09:22 Metamyelocytes # 0.2 K/mm3 09/29/19 09:22 Myelocytes # 0.0 K/mm3 09/29/19 09:22 Promyelocytes # 0.0 K/mm3 09/29/19 09:22 Blast Cells # 0.0 K/mm3 09/29/19 09:22 WBC Morphology Not Reportable 09/29/19 09:22 Hypersegmented Neuts Not Reportable 09/29/19 09:22 Hyposegmented Neuts Not Reportable 09/29/19 09:22 Hypogranular Neuts Not Reportable 09/29/19 09:22 Smudge Cells Not Reportable 09/29/19 09:22 Toxic Granulation Not Reportable 09/29/19 09:22 Toxic Vacuolation Not Reportable 09/29/19 09:22 Dohle Bodies Not Reportable 09/29/19 09:22 Pelger-Huet Anomaly Not Reportable 09/29/19 09:22 Andres Rods Not Reportable 09/29/19 09:22 Platelet Estimate Consistent w auto 09/29/19 09:22 Clumped Platelets Not Reportable 09/29/19 09:22 Plt Clumps, EDTA Not Reportable 09/29/19 09:22 Large Platelets Not Reportable 09/29/19 09:22 Giant Platelets Not Reportable 09/29/19 09:22 Platelet Satelliting Not Reportable 09/29/19 09:22 Plt Morphology Comment Not Reportable 09/29/19 09:22 RBC Morphology Normal 09/29/19 09:22 Dimorphic RBCs Not Reportable 09/29/19 09:22 Polychromasia Not Reportable 09/29/19 09:22 Hypochromasia Not Reportable 09/29/19 09:22 Poikilocytosis Not Reportable 09/29/19 09:22 Anisocytosis Not Reportable 09/29/19 09:22 Microcytosis Not Reportable 09/29/19 09:22 Macrocytosis Not Reportable 09/29/19 09:22 Spherocytes Not Reportable 09/29/19 09:22 Pappenheimer Bodies Not Reportable 09/29/19 09:22 Sickle Cells Not Reportable 09/29/19 09:22 Target Cells Not Reportable 09/29/19 09:22 Tear Drop Cells Not Reportable 09/29/19 09:22 Ovalocytes Not Reportable 09/29/19 09:22 Helmet Cells Not Reportable 09/29/19 09:22 [place] Bodies Not Reportable 09/29/19 09:22 [place] Rings Not Reportable 09/29/19 09:22 [place] Cells Not Reportable 09/29/19 09:22 Bite Cells Not Reportable 09/29/19 09:22 Crenated Cell Not Reportable 09/29/19 09:22 Elliptocytes Not Reportable 09/29/19 09:22 Acanthocytes (Spur) Not Reportable 09/29/19 09:22 Rouleaux Not Reportable 09/29/19 09:22 Hemoglobin C Crystals Not Reportable 09/29/19 09:22 Schistocytes Not Reportable 09/29/19 09:22 Malaria parasites Not Reportable 09/29/19 09:22 Toni Bodies Not Reportable 09/29/19 09:22 Hem Pathologist Commnt No 09/29/19 09:22 PT 15.0 Sec. (12.2-14.9) H 09/30/19 11:52 INR 1.19 (0.87-1.13) H 09/30/19 11:52 APTT 30.0 Sec. (24.2-36.6) 09/27/19 06:06 Sodium 142 mmol/L (137-145) 10/01/19 05:10 Potassium 3.8 mmol/L (3.6-5.0) 10/01/19 05:10 Chloride 104.9 mmol/L (98-107) 10/01/19 05:10 Carbon Dioxide 24 mmol/L (22-30) 10/01/19 05:10 Anion Gap 17 mmol/L 10/01/19 05:10 BUN 23 mg/dL (9-20) H 10/01/19 05:10 Creatinine 0.8 mg/dL (0.8-1.5) 10/01/19 05:10 Estimated GFR > 60 ml/min 10/01/19 05:10 BUN/Creatinine Ratio 29 % 10/01/19 05:10 Glucose 67 mg/dL (75-100) L 10/01/19 05:10 POC Glucose 118 (70-105) H 10/02/19 12:04 Calcium 8.3 mg/dL (8.4-10.2) L 10/01/19 05:10 Blood Type A POSITIVE 09/30/19 11:52 Antibody Screen Negative 09/30/19 11:52 Crossmatch See Detail 09/30/19 11:52 Active Medications - Current Medications Current Medications: Generic Name Dose Route Start Last Admin Trade Name Freq PRN Reason Stop Dose Admin Acetaminophen 650 mg 09/26/19 05:22 09/27/19 03:49 Tylenol PO 650 mg Q4H PRN Administration Pain MILD(1-3)/Fever >100.5/ROMANO Acetaminophen/Hydrocodone Bitart 2 each 09/27/19 09:06 10/02/19 05:50 [place] 5/325 PO 2 each Q6H PRN Administration Pain, Moderate (4-6) Albuterol/Ipratropium 1 ampul 09/26/19 20:00 10/02/19 08:49 Duoneb *Not For Prn Use* IH 1 ampul Q6HRT VERÓNICA Administration Budesonide 0.5 mg 09/26/19 20:00 10/02/19 08:50 Pulmicort IH 0.5 mg Q12HRT VERÓNICA Administration Citalopram Hydrobromide 20 mg 09/27/19 10:00 10/02/19 10:12 Celexa PO 20 mg QDAY VERÓNICA Administration Dextrose 50 ml 09/26/19 05:22 09/30/19 16:46 D50w (25gm) Syringe IV 50 ml Q30MIN PRN Administration Hypoglycemia Protocol Hydralazine HCl 5 mg 09/28/19 16:14 Apresoline IV Q30MIN PRN HTN SYS>180 ROSS>100 Hydromorphone HCl 1 mg 09/26/19 13:56 10/01/19 23:54 Dilaudid IV 1 mg Q3H PRN Administration Pain , Severe (7-10) Levofloxacin/Dextrose 750 mg in 150 mls @ 100 mls/hr 09/28/19 10:00 10/02/19 10:12 Levaquin 750mg/150ml IV 10/04/19 23:59 100 mls/hr Q24HR VERÓNICA Administration Protocol Metronidazole 500 mg in 100 mls @ 100 mls/hr 09/28/19 07:00 10/02/19 13:34 Flagyl 500 Mg/100 Ml IV 10/04/19 23:59 100 mls/hr Q8HR VERÓNICA Administration Protocol Pantoprazole Sodium 80 mg/ 100 mls @ 10 mls/hr 09/30/19 12:00 10/02/19 00:12 Sodium Chloride IV 8 mg/hr DIRECT VERÓNICA 10 mls/hr Administration 8 MG/HR Sodium Chloride 1,000 mls @ 125 mls/hr 09/30/19 12:00 10/02/19 13:38 Nacl 0.45% 1000 Ml IV 125 mls/hr DIRECT VERÓNICA Administration Insulin Human Regular 0 units 09/26/19 07:30 10/02/19 12:00 Humulin R SUB-Q Not Given ACHS [facility] Protocol Lisinopril 20 mg 09/27/19 10:00 10/02/19 10:12 Zestril PO 20 mg DAILY VERÓNICA Administration Metoprolol Tartrate 100 mg 09/26/19 22:00 10/02/19 10:13 Metoprolol PO 100 mg BID VERÓNICA Administration Ondansetron HCl 4 mg 09/26/19 05:22 Zofran IV Q8H PRN Nausea And Vomiting Pravastatin Sodium 40 mg 09/26/19 22:00 10/01/19 22:45 Pravachol PO 40 mg QHS VERÓNICA Administration Psyllium Hydrophilic Mucilloid 1 each 10/02/19 10:00 10/02/19 10:12 Metamucil PO 1 each QDAY VERÓNICA Administration Sodium Chloride 10 ml 09/26/19 10:00 10/02/19 10:12 Sodium Chloride Flush Syringe 10 Ml IV 10 ml BID VERÓNICA Administration Sodium Chloride 10 ml 09/26/19 05:22 09/30/19 06:04 Sodium Chloride Flush Syringe 10 Ml IV 10 ml PRN PRN Administration LINE FLUSH Sucralfate 1 gm 09/30/19 18:00 10/02/19 13:00 Carafate PO 1 gm Q6HR VERÓNICA Administration
[2019-10-02] MEDS: PRAVASTATIN 40 MG TAB PO SCH (21:41)
[2019-10-03] MEDS: SUCRALFATE 1 GM/10 ML ORAL LIQD PO SCH ×2 (05:55→13:00)
[2019-10-03] MEDS: metroNIDAZOLE/NS 500 MG/100 ML 500 MG/100 ML BAG IV SCH ×2 (05:55→13:34)
[2019-10-03] MEDS: INSULIN REGULAR, HUMAN 100 UNITS/1 ML SUB-Q SCH ×2 (08:00→12:00)
[2019-10-03] MEDS ORDERED: IPRATROPIUM/ALBUTEROL SULFATE 3 ML AMPUL.NEB IH SCH (08:00)
[2019-10-03] MEDS ORDERED: PANTOPRAZOLE 40 MG TAB PO SCH (10:00)
[2019-10-03] MEDS: METOPROLOL TARTRATE 100 MG TAB PO SCH (10:02)
[2019-10-03] MEDS: CITALOPRAM 20 MG TAB PO SCH (10:02)
[2019-10-03] MEDS: LISINOPRIL 20 MG TAB PO SCH (10:02)
[2019-10-03] MEDS: PSYLLIUM SEED (WITH SUGAR) 3.4 GM PACKET PO SCH (10:02)
--- NOTE | 2019-10-03 11:40 | Progress Note ---
Assessment and Plan - Patient Problems (1) Large bowel perforation Onset Date: ~09/25/19 Current Visit: Yes Status: Acute Plan to address problem: Pt stable. s/p dx lap with washout - 09/26; ex lap with partial colon resection - 09/28 - POD#5. Pt continues to look better everyday. From a surgical standpoint, he is clear for discharge. Rec: 1) Diet as tolerated. Recommended 6-7 small meals daily. Encouraged to stay well hydrated. 2) Finish 1 week of Abx - can transition to oral to complete course 3) Ambulate frequently when home 4) May shower tomorrow 5) f/u in office in about 1 week 6) Use abdominal binder for comfort. Please call with questions. Subjective Date of service: 10/03/19 Patient Reports: Positive: no new complaints, feels better, tolerating a regular diet, flatus. Negative: nausea, vomiting Objective Vital Signs - 12hr 10/03/19 10/03/19 10/03/19 00:24 02:44 08:05 Temperature 98.0 F 97.9 F Pulse Rate 66 78 Respiratory 18 20 18 Rate Blood Pressure 142/73 134/67 O2 Sat by Pulse 86 91 Oximetry 10/03/19 10:02 Temperature Pulse Rate 82 Respiratory Rate Blood Pressure 142/67 O2 Sat by Pulse Oximetry - General physical appearance no distress, no pain, other (looks better) - Eyes normal occular movement - Respiratory normal expansion, normal respiratory effort - Abdomen soft, not tender, not distended, not guarding, not rigid, surgical scars (C/D/I) - Integumentary other (unchanged scattered patches of faint redness) - Psychiatric oriented to time, oriented to person, oriented to place, speech is normal, memory intact - Labs 10/02/19 01:53 10/01/19 05:10
[2019-10-03] MEDS: HYDROcodone/ACETAMINOPHEN 5-325 MG TAB PO PRN (13:32)
--- NOTE | 2019-10-03 15:48 | Progress Note ---
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 Further work up in the Er showed localized peritonitis from a small perforation involving the descending colon. He was taken to OR for dx lap and washout. Overnight, patient developed worsening abdominal pain and stat CT showed signs of perforation. He was taken back to the OR and found to have a perforation, and had partial resection on 09/28/19. He had NGT placed and Developed gastric ulcer/upper GI bleed s/p EGD showed gastric ulcer due to NG tube trauma s/p treatment with Endoclips and placed on IV PPI drip, Until he Tolerated diet. /Acute upper GI bleed - likely from NG tube related trauma - started on protonic drip, monitor h/h - s/p EGD yesterday (09/30/19) that showed: 1. Proximal gastric body ulcer with bleeding stigmata/visible vessel s/p clip placement. 2. Distal esophageal ulcer without high risk bleeding stigmata -continue protonix drip today then transition to BID tomorrow /Large bowel perforation s/p dx lap with washout on 09/26 followed by exploratory laparotomy with Partial colon resection with primary anastomosis on 09/28/19 Placed on NG suction, nothing by mouth surgery following, pt is tolerating diet now Per GS need abx coverage for atleast one week /HTN, clonidine patch and IV hydralazine as needed /COPD with acute respiratory failure - Respiratory status declined following surgery - expected with h/o copd - cont nebs, wean off O2 as tolerated, cont iv steroid - pulmonary following /DVT Px, lovenox History Interval history: Patient was seen and examined. Follow-up on current diagnosis bowel perforation. No overnight events reported to me. Patient denies any chest pain, shortness breath, nausea/vomiting or severe headaches. Imaging, nursing note, chart, labs and old chart reviewed. Discussed with patient. Hospitalist Physical - Physical exam Narrative exam: Gen: WDWN, NAD, Awake, Alert, Orientated HEENT: NCAT, EOMI, PERRL, OP Clear Neck: supple, no adenopathy, no thyromegaly, no JVD CVS/Heart: RRR, normal S1S2, pulses present bilaterally Chest/Lungs: CTA B, Symmetrical chest expansion, good air entry bilaterally GI/Abdomen: soft, surgical dsg intact, +bowel sounds, no guarding or rebound /Bladder: no suprapubic tenderness, no CVA or paraspinal tenderness Extermity/Skin: ble pitting edema, no obvious rash MSK: FROM x 4 Neuro: CN 2-12 grossly intact, no new focal deficits Psych: calm - Constitutional Vitals: Temp Pulse Resp BP Pulse Ox 97.9 F 71 18 131/67 88 10/03/19 11:50 10/03/19 11:50 10/03/19 13:32 10/03/19 11:50 10/03/19 11:50 General appearance: Present: obese. Absent: mild distress, other Results - Labs CBC & Chem 7: 10/02/19 01:53 10/01/19 05:10 Labs: Laboratory Last Values WBC 10.3 K/mm3 (4.5-11.0) 10/01/19 05:10 RBC 3.75 M/mm3 (3.65-5.03) 10/01/19 05:10 Hgb 12.6 gm/dl (11.8-15.2) 10/02/19 01:53 Hct 37.8 % (35.5-45.6) 10/02/19 01:53 MCV 93 fl (84-94) 10/01/19 05:10 MCH 31 pg (28-32) 10/01/19 05:10 MCHC 34 % (32-34) 10/01/19 05:10 RDW 14.4 % (13.2-15.2) 10/01/19 05:10 Plt Count 205 K/mm3 (140-440) 10/01/19 05:10 Lymph % (Auto) 10.0 % (13.4-35.0) L 10/01/19 05:10 [place] % (Auto) 7.2 % (0.0-7.3) 10/01/19 05:10 Eos % (Auto) 1.4 % (0.0-4.3) 10/01/19 05:10 Baso % (Auto) 0.3 % (0.0-1.8) 10/01/19 05:10 Lymph # 1.0 K/mm3 (1.2-5.4) L 10/01/19 05:10 [place] # 0.7 K/mm3 (0.0-0.8) 10/01/19 05:10 Eos # 0.1 K/mm3 (0.0-0.4) 10/01/19 05:10 Baso # 0.0 K/mm3 (0.0-0.1) 10/01/19 05:10 Add Manual Diff Complete 09/29/19 09:22 Total Counted 100 09/29/19 09:22 Seg Neutrophils % 81.1 % (40.0-70.0) H 10/01/19 05:10 Seg Neuts % (Manual) 86.0 % (40.0-70.0) H 09/29/19 09:22 Band Neutrophils % 6.0 % 09/29/19 09:22 Lymphocytes % (Manual) 6.0 % (13.4-35.0) L 09/29/19 09:22 Reactive Lymphs % (Man) 0 % 09/29/19 09:22 Monocytes % (Manual) 0 % (0.0-7.3) 09/29/19 09:22 Eosinophils % (Manual) 0 % (0.0-4.3) 09/29/19 09:22 Basophils % (Manual) 0 % (0.0-1.8) 09/29/19 09:22 Metamyelocytes % 2.0 % 09/29/19 09:22 Myelocytes % 0 % 09/29/19 09:22 Promyelocytes % 0 % 09/29/19 09:22 Blast Cells % 0 % 09/29/19 09:22 Nucleated RBC % Not Reportable 09/29/19 09:22 Seg Neutrophils # 8.4 K/mm3 (1.8-7.7) H 10/01/19 05:10 Seg Neutrophils # Man 9.4 K/mm3 (1.8-7.7) H 09/29/19 09:22 Band Neutrophils # 0.7 K/mm3 09/29/19 09:22 Lymphocytes # (Manual) 0.7 K/mm3 (1.2-5.4) L 09/29/19 09:22 Abs React Lymphs (Man) 0.0 K/mm3 09/29/19 09:22 Monocytes # (Manual) 0.0 K/mm3 (0.0-0.8) 09/29/19 09:22 Eosinophils # (Manual) 0.0 K/mm3 (0.0-0.4) 09/29/19 09:22 Basophils # (Manual) 0.0 K/mm3 (0.0-0.1) 09/29/19 09:22 Metamyelocytes # 0.2 K/mm3 09/29/19 09:22 Myelocytes # 0.0 K/mm3 09/29/19 09:22 Promyelocytes # 0.0 K/mm3 09/29/19 09:22 Blast Cells # 0.0 K/mm3 09/29/19 09:22 WBC Morphology Not Reportable 09/29/19 09:22 Hypersegmented Neuts Not Reportable 09/29/19 09:22 Hyposegmented Neuts Not Reportable 09/29/19 09:22 Hypogranular Neuts Not Reportable 09/29/19 09:22 Smudge Cells Not Reportable 09/29/19 09:22 Toxic Granulation Not Reportable 09/29/19 09:22 Toxic Vacuolation Not Reportable 09/29/19 09:22 Dohle Bodies Not Reportable 09/29/19 09:22 Pelger-Huet Anomaly Not Reportable 09/29/19 09:22 Andres Rods Not Reportable 09/29/19 09:22 Platelet Estimate Consistent w auto 09/29/19 09:22 Clumped Platelets Not Reportable 09/29/19 09:22 Plt Clumps, EDTA Not Reportable 09/29/19 09:22 Large Platelets Not Reportable 09/29/19 09:22 Giant Platelets Not Reportable 09/29/19 09:22 Platelet Satelliting Not Reportable 09/29/19 09:22 Plt Morphology Comment Not Reportable 09/29/19 09:22 RBC Morphology Normal 09/29/19 09:22 Dimorphic RBCs Not Reportable 09/29/19 09:22 Polychromasia Not Reportable 09/29/19 09:22 Hypochromasia Not Reportable 09/29/19 09:22 Poikilocytosis Not Reportable 09/29/19 09:22 Anisocytosis Not Reportable 09/29/19 09:22 Microcytosis Not Reportable 09/29/19 09:22 Macrocytosis Not Reportable 09/29/19 09:22 Spherocytes Not Reportable 09/29/19 09:22 Pappenheimer Bodies Not Reportable 09/29/19 09:22 Sickle Cells Not Reportable 09/29/19 09:22 Target Cells Not Reportable 09/29/19 09:22 Tear Drop Cells Not Reportable 09/29/19 09:22 Ovalocytes Not Reportable 09/29/19 09:22 Helmet Cells Not Reportable 09/29/19 09:22 [place] Bodies Not Reportable 09/29/19 09:22 [place] Rings Not Reportable 09/29/19 09:22 [place] Cells Not Reportable 09/29/19 09:22 Bite Cells Not Reportable 09/29/19 09:22 Crenated Cell Not Reportable 09/29/19 09:22 Elliptocytes Not Reportable 09/29/19 09:22 Acanthocytes (Spur) Not Reportable 09/29/19 09:22 Rouleaux Not Reportable 09/29/19 09:22 Hemoglobin C Crystals Not Reportable 09/29/19 09:22 Schistocytes Not Reportable 09/29/19 09:22 Malaria parasites Not Reportable 09/29/19 09:22 Toni Bodies Not Reportable 09/29/19 09:22 Hem Pathologist Commnt No 09/29/19 09:22 PT 15.0 Sec. (12.2-14.9) H 09/30/19 11:52 INR 1.19 (0.87-1.13) H 09/30/19 11:52 APTT 30.0 Sec. (24.2-36.6) 09/27/19 06:06 Sodium 142 mmol/L (137-145) 10/01/19 05:10 Potassium 3.8 mmol/L (3.6-5.0) 10/01/19 05:10 Chloride 104.9 mmol/L (98-107) 10/01/19 05:10 Carbon Dioxide 24 mmol/L (22-30) 10/01/19 05:10 Anion Gap 17 mmol/L 10/01/19 05:10 BUN 23 mg/dL (9-20) H 10/01/19 05:10 Creatinine 0.8 mg/dL (0.8-1.5) 10/01/19 05:10 Estimated GFR > 60 ml/min 10/01/19 05:10 BUN/Creatinine Ratio 29 % 10/01/19 05:10 Glucose 67 mg/dL (75-100) L 10/01/19 05:10 POC Glucose 102 (70-105) 10/03/19 11:57 Calcium 8.3 mg/dL (8.4-10.2) L 10/01/19 05:10 Blood Type A POSITIVE 09/30/19 11:52 Antibody Screen Negative 09/30/19 11:52 Crossmatch See Detail 09/30/19 11:52 Active Medications - Current Medications Current Medications: Generic Name Dose Route Start Last Admin Trade Name Freq PRN Reason Stop Dose Admin Acetaminophen 650 mg 09/26/19 05:22 09/27/19 03:49 Tylenol PO 650 mg Q4H PRN Administration Pain MILD(1-3)/Fever >100.5/ROMANO Acetaminophen/Hydrocodone Bitart 2 each 09/27/19 09:06 10/03/19 13:32 [place] 5/325 PO 2 each Q6H PRN Administration Pain, Moderate (4-6) Albuterol/Ipratropium 1 ampul 10/03/19 08:00 Duoneb *Not For Prn Use* IH TIDRT VERÓNICA Bisacodyl 10 mg 10/03/19 12:00 Dulcolax IA QDAY PRN Constipation Budesonide 0.5 mg 09/26/19 20:00 10/02/19 21:14 Pulmicort IH 0.5 mg Q12HRT VERÓNICA Administration Citalopram Hydrobromide 20 mg 09/27/19 10:00 10/03/19 10:02 Celexa PO 20 mg QDAY VERÓNICA Administration Dextrose 50 ml 09/26/19 05:22 09/30/19 16:46 D50w (25gm) Syringe IV 50 ml Q30MIN PRN Administration Hypoglycemia Protocol Hydralazine HCl 5 mg 09/28/19 16:14 Apresoline IV Q30MIN PRN HTN SYS>180 ROSS>100 Hydromorphone HCl 1 mg 09/26/19 13:56 10/01/19 23:54 Dilaudid IV 1 mg Q3H PRN Administration Pain , Severe (7-10) Levofloxacin/Dextrose 750 mg in 150 mls @ 100 mls/hr 09/28/19 10:00 10/03/19 10:03 Levaquin 750mg/150ml IV 10/04/19 23:59 100 mls/hr Q24HR VERÓNICA Administration Protocol Metronidazole 500 mg in 100 mls @ 100 mls/hr 09/28/19 07:00 10/03/19 13:34 Flagyl 500 Mg/100 Ml IV 10/04/19 23:59 100 mls/hr Q8HR VERÓNICA Administration Protocol Insulin Human Regular 0 units 09/26/19 07:30 10/03/19 08:00 Humulin R SUB-Q Not Given ACHS VERÓNICA Protocol Lisinopril 20 mg 09/27/19 10:00 10/03/19 10:02 Zestril PO 20 mg DAILY VERÓNICA Administration Metoprolol Tartrate 100 mg 09/26/19 22:00 10/03/19 10:02 Metoprolol PO 100 mg BID VERÓNICA Administration Ondansetron HCl 4 mg 09/26/19 05:22 Zofran IV Q8H PRN Nausea And Vomiting Pantoprazole Sodium 40 mg 10/03/19 10:00 10/03/19 10:02 Protonix PO 40 mg BID VERÓNICA Administration Pravastatin Sodium 40 mg 09/26/19 22:00 10/02/19 21:41 Pravachol PO 40 mg QHS VERÓNICA Administration Psyllium Hydrophilic Mucilloid 1 each 10/02/19 10:00 10/03/19 10:02 Metamucil PO 1 each QDAY VERÓNICA Administration Sodium Chloride 10 ml 09/26/19 10:00 10/03/19 10:03 Sodium Chloride Flush Syringe 10 Ml IV 10 ml BID VERÓNICA Administration Sodium Chloride 10 ml 09/26/19 05:22 09/30/19 06:04 Sodium Chloride Flush Syringe 10 Ml IV 10 ml PRN PRN Administration LINE FLUSH Sucralfate 1 gm 09/30/19 18:00 10/03/19 13:00 Carafate PO 1 gm Q6HR VERÓNICA Administration Nutrition/Malnutrition Assess - Dietary Evaluation Nutrition/Malnutrition Findings: Nutrition Notes Start: 10/03/19 12:26 Freq: Status: Active Protocol: Document 10/03/19 12:26 CT (Rec: 10/03/19 13:20 CT [id number]) Co-Sign 10/03/19 12:26 LM Nutrition Notes Need for Assessment generated from: LOS Initial or Follow up Assessment Current Diagnosis COPD,Coronary Artery Disease, Hypertension Other Pertinent Diagnosis Abd pain, ETOH dependence, s/p colonoscopy, partial colon resection Current Diet Regular Diet Labs/Tests Reviewed Pertinent Medications Humulin Height 6 ft Weight 137 kg Usual Body Weight 131.542 kg [place] Body Weight (kg) 80.90 BMI 40.9 Intake Prior to Admission Good Weight Status Morbidly Obese Subjective/Other Information 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 Pt report of eating 50% of his breakfast because he does not like the way the food tastes. Pt was asked for any preferences and he stated that he has none. Burn Absent Trauma Absent GI Symptoms None Food Allergy No Current % PO Fair (50-74%) Minimum of two criteria No physical signs of malnutrition #1 Nutrition Diagnosis Inadequate oral intake Etiology pt not likely the taste of hospital food As Evidenced by Signs and Symptoms 50% of breakfast consumed Is patient on ventilator? No Is Patient Ambulatory and/or Out of Bed Yes REE-([facility]-ambulatory/OOB) [ 2909.400 NUTR.[id number]] Kcal/Kg value to use for calculation 18 Approximate Energy Requirements Using 2466 kcal/Kg Calculation Used for Recommendations Kcal/kg Additional Notes Protein needs: 87-131 g/day (0 .8-1.2 g/kg/day AdBW 108.95) Fluid needs: 1 ml/kcal Nutrition Intervention Change Diet Order: Change to Cardiac Diet Goal #1 Meet >80% of energy and protein needs Anticipated Discharge Needs: Cardiac Diet Follow-Up By: 10/05/19 Additional Comments Follow up for PO intakes
--- NOTE | 2019-10-03 15:57 | Discharge Summary ---
Providers - Providers Date of Admission: 09/26/19 05:22 Date of discharge: 10/03/19 Attending physician: THOMAS ROBERT 09/26/19 05:22 Consult to Physician [CONS] Routine Comment: Consulting Provider: [facility] Physician Instructions: Reason For Exam: diverticulitis Primary care physician: DREW FREEMAN Hospitalization Condition: Stable Hospital course: Patient is a 54 yo man who works here with a history of multiple medical problems presents with severe abdominal pain to the emergency room after having a colonoscopy. Further work up in the Er showed localized peritonitis from a small perforation involving the descending colon. He was taken to OR for dx lap and washout. Overnight, patient developed worsening abdominal pain and stat CT showed signs of perforation. He was taken back to the OR and found to have a perforation, and had partial resection on 09/28/19. He had NGT placed and Developed gastric ul cer/upper GI bleed s/p EGD showed gastric ulcer due to NG tube trauma s/p treatment with Endoclips and placed on IV PPI drip, Until he Tolerated diet. Discharge Diagnoses: /Acute upper GI bleed - likely from NG tube related trauma - started on protonic drip, monitor h/h - s/p EGD yesterday (09/30/19) that showed: 1. Proximal gastric body ulcer with bleeding stigmata/visible vessel s/p clip placement. 2. Distal esophageal ulcer without high risk bleeding stigmata -continue protonix drip today then transition to BID tomorrow /Large bowel perforation s/p dx lap with washout - 09/26; ex lap with partial colon resection - 09/28 - POD#5. Placed on NG suction, nothing by mouth surgery following, pt is tolerating diet now Per GS need abx coverage for atleast one week /HTN, clonidine patch and IV hydralazine as needed /Acute COPD with acute respiratory failure, poa - Respiratory status declined following surgery - expected with h/o copd - cont nebs, qualified for O2, cont iv steroid - pulmonary following Disposition: TO HOME OR SELFCARE Time spent for discharge: 35 minutes Core Measure Documentation - Palliative Care Palliative Care/ Comfort Measures: Not Applicable - Core Measures Any of the following diagnoses?: none - VTE Discharge Requirements Deep Vein Thrombosis/Pulmonary Embolism Present on Admission: No Has pt received <5 days of overlap therapy or INR<2.0: No Anticoagulant overlap therapy prescribed at discharge: No Contraindication No Overlap Therapy order at DC: Not Indicated Exam - Physical Exam Narrative exam: Gen: WDWN, NAD, Awake, Alert, Orientated HEENT: NCAT, EOMI, PERRL, OP Clear Neck: supple, no adenopathy, no thyromegaly, no JVD CVS/Heart: RRR, normal S1S2, pulses present bilaterally Chest/Lungs: CTA B, Symmetrical chest expansion, good air entry bilaterally GI/Abdomen: soft, surgical dsg intact, +bowel sounds, no guarding or rebound /Bladder: no suprapubic tenderness, no CVA or paraspinal tenderness Extermity/Skin: ble pitting edema, no obvious rash MSK: FROM x 4 Neuro: CN 2-12 grossly intact, no new focal deficits Psych: calm - Constitutional Vitals: Temp Pulse Resp BP Pulse Ox 97.9 F 71 18 131/67 88 10/03/19 11:50 10/03/19 11:50 10/03/19 13:32 10/03/19 11:50 10/03/19 11:50 Plan Activity: other (no strenous activity including work until cleared by Surgeon) Diet: advance as tolerated (see below) Wound: per your surgeon's advice Special Instructions: home oxygen via Durable Medical Equipment Needed Upon Discharge: Oxygen Additional Instructions: Rec: 1) Diet as tolerated. Recommended 6-7 small meals daily. Encouraged to stay well hydrated. 2) Finish 1 week of Abx - can transition to oral to complete course. 3) Ambulate frequently when home. 4) May shower tomorrow. 5) f/u in office in about 1 week. 6) Use abdominal binder for comfort. Follow up with: DREW FREEMAN MD [Primary Care Provider] - 3-5 Days ANKITA GAO MD [Staff Physician] - 7 Days Prescriptions: Sucralfate [Carafate] 1 gm PO Q6HR 30 Days oral.liqd Bisacodyl [Dulcolax suppos] 10 mg RI QDAY PRN #4 supp.rect PRN Reason: Constipation levoFLOXacin [Levaquin TAB] 750 mg PO QDAY #2 tablet oxyCODONE /ACETAMINOPHEN [Percocet 5/325 mg] 1 tab PO Q4H PRN #26 tablet PRN Reason: Pain , Severe (7-10) Pantoprazole [Protonix TAB] 40 mg PO BID #60 tablet
[2019-10-03 17:14] VITALS: BP 139/70
== END 2019-10-03 18:18 | disposition home or self-care (01) | DRG 329 ==
LOC: ED 22:29 → 3A 09-26 05:22 → 4A 09-26 14:01 → IMCU 09-30 16:41 → 4A 10-01 23:35
PROVIDERS: ADMIT Internal Medicine Geriatric Medicine; ATTEND Internal Medicine
PROC: 0DJD4ZZ Inspection of Lower Intestinal Tract, Percutaneous Endoscopic Approach (ICD-10-PCS; 2019-09-26)
PROC: 0D9 Gastrointestinal System, Drainage (ICD-10-PCS; 2019-09-26)
PROC: 5A09357 Assistance with Respiratory Ventilation, Less than 24 Consecutive Hours, Continuous Positive Airway Pressure (ICD-10-PCS; 2019-09-26)
PROC: 0DBM0ZZ Excision of Descending Colon, Open Approach (ICD-10-PCS; principal; 2019-09-28)
PROC: 0DJD4ZZ Inspection of Lower Intestinal Tract, Percutaneous Endoscopic Approach (ICD-10-PCS; 2019-09-28)
PROC: 0DBL0ZZ Excision of Transverse Colon, Open Approach (ICD-10-PCS; 2019-09-28)
PROC: 0D9670Z Drainage of Stomach with Drainage Device, Via Natural or Artificial Opening (ICD-10-PCS; 2019-09-28)
PROC: 0W3P8ZZ Control Bleeding in Gastrointestinal Tract, Via Natural or Artificial Opening Endoscopic (ICD-10-PCS; 2019-09-30)
DX: K91.89 Other postprocedural complications and disorders of digestive system (principal); A41.9 Sepsis, unspecified organism; J96.00 Acute respiratory failure, unspecified whether with hypoxia or hypercapnia; K25.4 Chronic or unspecified gastric ulcer with hemorrhage; K57.20 Diverticulitis of large intestine with perforation and abscess without bleeding; Z68.41 Body mass index [BMI] 40.0-44.9, adult; K22.10 Ulcer of esophagus without bleeding; J44.9 Chronic obstructive pulmonary disease, unspecified; I10 Essential (primary) hypertension; F17.210 Nicotine dependence, cigarettes, uncomplicated; K86.9 Disease of pancreas, unspecified; Y83.8 Other surgical procedures as the cause of abnormal reaction of the patient, or of later complication, without mention of misadventure at the time of the procedure; E66.9 Obesity, unspecified; I25.10 Atherosclerotic heart disease of native coronary artery without angina pectoris; Y93.89 Activity, other specified; Y99.8 Other external cause status; Y92.89 Other specified places as the place of occurrence of the external cause; I25.2 Old myocardial infarction; Z88.0 Allergy status to penicillin; Z88.8 Allergy status to other drugs, medicaments and biological substances; Z95.1 Presence of aortocoronary bypass graft; Z95.5 Presence of coronary angioplasty implant and graft
CPT/HCPCS: 36415; 74018; 74177; 74178; 80048; 82962; 85007; 85014; 85018; 85025; 85027; 85610; 85730; 86850; 86900; 86901; 86920; 87040; 88307; 94640; 94660; 94760; G0378; A4217; A9270-GY; C9113; J0171; J0330; J0692; J1100; J1170; J1650; J1885; J1940; J1956; J2250; J2270; J2370; J2405; J2704; J2710; J2765; J3010; J7030; Q9967

== ENCOUNTER 2019-10-05 10:57 | Inpatient (IN) | payer BC ==
--- NOTE | 2019-10-05 11:12 | Event Note ---
ED Screening Note Date of service: 10/05/19 Time: 11:10 ED Screening Note: 54 y o male presents for abdomen cody with recent surgery, bleeding from incision site states he coughed and felt somthing ruptured This initial assessment/diagnostic orders/clinical plan/treatment(s) is/are subject to change based on patients health status, clinical progression and re- assessment by fellow clinical providers in the ED. Further treatment and workup at subsequent clinical providers discretion. Patient/guardian urged not to elope from the ED as their condition may be serious if not clinically assessed and managed. Initial orders include: CT scan
[2019-10-05] MEDS ORDERED: MORPHINE 4 MG/1 ML INJ IV ONE (11:46)
[2019-10-05] MEDS ORDERED: ONDANSETRON 4 MG/2 ML INJ IV ONE (11:46)
[2019-10-05] MEDS ORDERED: HYDROmorphone 1 MG/1 ML INJ IV ONE ×2 (11:49→12:09)
--- NOTE | 2019-10-05 12:28 | Consultation ---
History of Present Illness Consult date: 10/05/19 Reason for consult: abdominal pain Requesting physician: ALEX ARELLANO Chief complaint: sudden onset of abdominal pain - History of present illness History of present illness: 54yo M who is well known to our service as we recently did a partial colon resection for a perforation after a c-scope. Pt reports that he was doing very until he started coughing today and then felt a sharp pain in the abdomen. Had a large amount of fluid that drained out. Denies F/C/N/V. Was having BMs prior to this episode. Past History Past Medical History: acute [place] (2 years ago), CAD, COPD, hypertension, other (obesity) Past Surgical History: arthroscopy (knee), PTCA (1 stent placed), bowel surgery (partial colon resection.), Other Social history: smoking (2ppd), alcohol abuse (2 beers/day) Family history: no significant family history Medications and Allergies Allergies Allergy/AdvReac Type Severity Reaction Status Date / Time Sulfa (Sulfonamide Allergy Severe Rash Verified 03/22/16 18:34 Antibiotics) oxytetracycline Allergy Unknown Verified 03/22/16 10:32 [From Terramycin] oxytetracycline HCl Allergy Unknown Verified 03/22/16 10:32 [From Terramycin] Penicillins AdvReac Severe Shortness Verified 03/22/16 18:34 of Breath Home Medications Medication Instructions Recorded Confirmed Last Taken Type ALBUTEROL Inhaler (OR & NICU) 2 puff IH QID PRN #1 inhalation 08/17/18 09/26/19 Unknown Rx [ProAir HFA Inhaler] Arformoterol Nebu [Brovana Nebu] 15 mcg IH Q12HRT ml 08/17/18 09/26/19 Unknown Rx Benzonatate [Tessalon Perles] 100 mg PO Q8HR capsule 08/17/18 09/26/19 Unknown Rx Citalopram [Celexa] 20 mg PO QDAY #30 tablet 08/17/18 09/26/19 Unknown Rx Ipratropium/Albuterol Sulfate 1 ampul IH Q6HRT #30 ampul.neb 08/17/18 09/26/19 Unknown Rx [DUONEB *Not for PRN Use*] Lisinopril [Zestril TAB] 20 mg PO DAILY #30 tablet 08/17/18 09/26/19 Unknown Rx Metoprolol [Lopressor TAB] 100 mg PO BID #60 tablet 08/17/18 09/26/19 Unknown Rx Pravastatin [Pravachol] 40 mg PO QHS #30 tablet 08/17/18 09/26/19 Unknown Rx Symbicort 160-4.5 Mcg Inhaler 1 puff INHALATION BID #30 08/17/18 09/26/19 Unknown Rx Acetaminophen [Acetaminophen TAB] 2 tab PO Q4H PRN #30 tablet 10/03/19 Unknown Rx Bisacodyl [Dulcolax suppos] 10 mg [place] QDAY PRN #4 supp.rect 10/03/19 Unknown Rx Pantoprazole [Protonix TAB] 40 mg PO BID #60 tablet 10/03/19 Unknown Rx Sucralfate [Carafate] 1 gm PO Q6HR 30 Days oral.liqd 10/03/19 Unknown Rx levoFLOXacin [Levaquin TAB] 750 mg PO QDAY #2 tablet 10/03/19 Unknown Rx oxyCODONE /ACETAMINOPHEN [Percocet 1 tab PO Q4H PRN #26 tablet 10/03/19 Unknown Rx 5/325 mg] Review of Systems - Constitutional no fever, no chills, no chronic pain - Cardiovascular shortness of breath, no chest pain - Respiratory cough - Gastrointestinal abdominal pain, no nausea, no vomiting - Genitourinary no dysuria - Integumentary no rash, no redness, no sores Exam Vital Signs Temp Pulse Resp BP Pulse Ox 97.4 F L 72 18 124/60 95 10/05/19 11:09 10/05/19 11:09 10/05/19 11:09 10/05/19 11:09 10/05/19 11:09 - General physical appearance Positive: no distress, moderate pain, obese - Eyes Positive: normal occular movement - Respiratory Positive: normal expansion, normal respiratory effort, clear to auscultation - Cardiovascular Rhythm: regular - Abdomen Abdomen: Present: soft, bowel sounds hypoactive, surgical scars (relatively clean). Absent: tender (except for area of evisceration), distended, guarding, rigid Hernia: incisional, reducible - Integumentary no rash, no growths - Neurologic Neurologic: alert and oriented to time, place and person - Psychiatric Psychiatric: appropriate mood/affect, intact judgment & insight, cooperative Assessment and Plan - Patient Problems (1) Dehiscence of closure of fascia, superficial or muscular Status: Acute Qualifiers: Encounter type: initial encounter Qualified Code(s): T81.32XA - Disruption of internal operation (surgical) wound, not elsewhere classified, initial encounter Plan to address problem: Pt stable. Pt with obvious fascial dehiscence. Bowel not compromised or incarcerated. Pt in need of operative washout and closure. Procedure, risks, benefits discussed. Consent obtained. Proceed to OR soon. Time=20min
[2019-10-05] MEDS ORDERED: SODIUM CHLORIDE 0.9% 1000 ML 1,000 ML ONE (12:50)
[2019-10-05] MEDS ORDERED: PROPOFOL 200 MG/20 ML VIAL IV ONE (13:00)
[2019-10-05] MEDS ORDERED: HYDROmorphone 1 MG/1 ML INJ ONE (13:00)
[2019-10-05] MEDS ORDERED: VANCOMYCIN/NS 1 GM/250 ML 1 GM/250 ML BAG IV NR (13:00)
[2019-10-05] MEDS ORDERED: LIDOCAINE MPF (2%) 20 MG/1 ML VIAL 5 ML ONE (13:00)
[2019-10-05] MEDS ORDERED: SUCCINYLCHOLINE CHLORIDE 200 MG/10 ML INJ MDV ONE (13:01)
[2019-10-05] MEDS ORDERED: ROCURONIUM 50 MG/5 ML INJ IV ONE (13:01)
--- NOTE | 2019-10-05 13:09 | Anesthesia Consultation ---
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
--- NOTE | 2019-10-05 13:10 | Anesthesia Day of Surgery ---
Anesthesia Day of Surgery - Day of Surgery Patient Examined: Yes Patient H&P Reviewed: Yes Patient is NPO: Yes
[2019-10-05] MEDS ORDERED: VANCOMYCIN 1000 MG INJ ONE (13:24)
[2019-10-05] MEDS ORDERED: SODIUM CHLORIDE 0.9% 500 ML 500 ML ONE (13:36)
--- NOTE | 2019-10-05 13:37 | Emergency Department Report ---
ED Abdominal Pain HPI - General Chief Complaint: Abdominal Pain Stated Complaint: POST OP PAIN Time Seen by Provider: 10/05/19 11:41 Source: patient Mode of arrival: Wheelchair Limitations: No Limitations - History of Present Illness Initial Comments: Mr. Moreno is a 54 yo male with hx of CAD, [place], emphysema, COPD who presents with Anirudh consultation. Mr. Moreno recently had a prolonged complicated course as a result of a bowel perforation. He has had 3 surgeries over the course of the past 10 days. Today after coughing a portion of his intestines protruded through the wound. He has severe 8/10 pain with cough and movement. No vomiting. No fever. He was discharged from the hospital recently. MD Complaint: abdominal pain -: Sudden, This morning Location: periumbilical (infraumbilical) Radiation: none Migration to: no migration Severity scale (0 -10): 10 Quality: aching, sharp Consistency: constant Improves With: nothing Worsens With: movement Context: recent surgery/procedure Associated Symptoms: denies other symptoms - Related Data Previous Rx's Medication Instructions Recorded Last Taken Type ALBUTEROL Inhaler (OR & NICU) 2 puff IH QID PRN #1 inhalation 08/17/18 Unknown Rx [ProAir HFA Inhaler] Arformoterol Nebu [Brovana Nebu] 15 mcg IH Q12HRT ml 08/17/18 Unknown Rx Benzonatate [Tessalon Perles] 100 mg PO Q8HR capsule 08/17/18 Unknown Rx Citalopram [Celexa] 20 mg PO QDAY #30 tablet 08/17/18 Unknown Rx Ipratropium/Albuterol Sulfate 1 ampul IH Q6HRT #30 ampul.neb 08/17/18 Unknown Rx [DUONEB *Not for PRN Use*] Lisinopril [Zestril TAB] 20 mg PO DAILY #30 tablet 08/17/18 Unknown Rx Metoprolol [Lopressor TAB] 100 mg PO BID #60 tablet 08/17/18 Unknown Rx Pravastatin [Pravachol] 40 mg PO QHS #30 tablet 08/17/18 Unknown Rx Symbicort 160-4.5 Mcg Inhaler 1 puff INHALATION BID #30 08/17/18 Unknown Rx Acetaminophen [Acetaminophen TAB] 2 tab PO Q4H PRN #30 tablet 10/03/19 Unknown Rx Bisacodyl [Dulcolax suppos] 10 mg [place] QDAY PRN #4 supp.rect 10/03/19 Unknown Rx Pantoprazole [Protonix TAB] 40 mg PO BID #60 tablet 10/03/19 Unknown Rx Sucralfate [Carafate] 1 gm PO Q6HR 30 Days oral.liqd 10/03/19 Unknown Rx levoFLOXacin [Levaquin TAB] 750 mg PO QDAY #2 tablet 10/03/19 Unknown Rx oxyCODONE /ACETAMINOPHEN [Percocet 1 tab PO Q4H PRN #26 tablet 10/03/19 Unknown Rx 5/325 mg] Allergies Allergy/AdvReac Type Severity Reaction Status Date / Time Sulfa (Sulfonamide Allergy Severe Rash Verified 03/22/16 18:34 Antibiotics) oxytetracycline Allergy Unknown Verified 03/22/16 10:32 [From Terramycin] oxytetracycline HCl Allergy Unknown Verified 03/22/16 10:32 [From Terramycin] Penicillins AdvReac Severe Shortness Verified 03/22/16 18:34 of Breath ED Review of Systems ROS: Stated complaint: POST OP PAIN Other details as noted in HPI Comment: All other systems reviewed and negative Constitutional: denies: fever, malaise Gastrointestinal: abdominal pain. 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 collapsed right lung: chest tube placed/ BLEEDING ULCER/ COLON REACTION - Social History Smoking Status: Former Smoker Substance Use Type: Prescribed - Medications Home Medications: Home Medications Medication Instructions Recorded Confirmed Last Taken Type ALBUTEROL Inhaler (OR & NICU) 2 puff IH QID PRN #1 inhalation 08/17/18 09/26/19 Unknown Rx [ProAir HFA Inhaler] Arformoterol Nebu [Brovana Nebu] 15 mcg IH Q12HRT ml 08/17/18 09/26/19 Unknown Rx Benzonatate [Tessalon Perles] 100 mg PO Q8HR capsule 08/17/18 09/26/19 Unknown Rx Citalopram [Celexa] 20 mg PO QDAY #30 tablet 08/17/18 09/26/19 Unknown Rx Ipratropium/Albuterol Sulfate 1 ampul IH Q6HRT #30 ampul.neb 08/17/18 09/26/19 Unknown Rx [DUONEB *Not for PRN Use*] Lisinopril [Zestril TAB] 20 mg PO DAILY #30 tablet 08/17/18 09/26/19 Unknown Rx Metoprolol [Lopressor TAB] 100 mg PO BID #60 tablet 08/17/18 09/26/19 Unknown Rx Pravastatin [Pravachol] 40 mg PO QHS #30 tablet 08/17/18 09/26/19 Unknown Rx Symbicort 160-4.5 Mcg Inhaler 1 puff INHALATION BID #30 08/17/18 09/26/19 Unknown Rx Acetaminophen [Acetaminophen TAB] 2 tab PO Q4H PRN #30 tablet 10/03/19 Unknown Rx Bisacodyl [Dulcolax suppos] 10 mg [place] QDAY PRN #4 supp.rect 10/03/19 Unknown Rx Pantoprazole [Protonix TAB] 40 mg PO BID #60 tablet 10/03/19 Unknown Rx Sucralfate [Carafate] 1 gm PO Q6HR 30 Days oral.liqd 10/03/19 Unknown Rx levoFLOXacin [Levaquin TAB] 750 mg PO QDAY #2 tablet 10/03/19 Unknown Rx oxyCODONE /ACETAMINOPHEN [Percocet 1 tab PO Q4H PRN #26 tablet 10/03/19 Unknown Rx 5/325 mg] ED Physical Exam - General Limitations: No Limitations General appearance: alert, other (appears in severe pain) - Head Head exam: Present: atraumatic, normocephalic - Eye Eye exam: Present: normal appearance - ENT ENT exam: Present: mucous membranes moist - Neck Neck exam: Present: normal inspection, full ROM - Respiratory Respiratory exam: Present: normal lung sounds bilaterally. Absent: respiratory distress, wheezes, rales, rhonchi - Cardiovascular Cardiovascular Exam: Present: regular rate, normal rhythm, normal heart sounds. Absent: systolic murmur, diastolic murmur, rubs, gallop - GI/Abdominal GI/Abdominal exam: Present: soft, tenderness, guarding, other (long vertical incision cody intact, lower portion of wound dehicisence with 3 cm portion of bowel evisceration) - Extremities Exam Extremities exam: Present: normal inspection - Neurological Exam Neurological exam: Present: alert, oriented X3 - Psychiatric Psychiatric exam: Present: normal affect, normal mood - Skin Skin exam: Present: warm, dry, intact, normal color. Absent: rash ED Course Vital Signs 10/05/19 10/05/19 11:09 12:25 Temperature 97.4 F L 97.9 F Pulse Rate 72 72 Respiratory 18 19 Rate Blood Pressure 124/60 Blood Pressure 136/72 [Left] O2 Sat by Pulse 95 94 Oximetry ED Medical Decision Making - Medical Decision Making wound dehiscence/bowel evisceration: Dr. Krause surgeon came to bedside immediately, Dr. Krause contacted the OR team to prepare patient for surgery, anesthesiologist assisted with IV placement Given analagesia admitted to hospitalist service. I d/w Dr. Llanes hospitalist Critical care attestation.: If time is entered above; I have spent that time in minutes in the direct care of this critically ill patient, excluding procedure time. ED Disposition Clinical Impression: Wound dehiscence, Evisceration of bowel Disposition: OP ADMIT IP TO THIS HOSP Is pt being admited?: Yes Does the pt Need Aspirin: No Condition: Stable
[2019-10-05] MEDS ORDERED: SODIUM CHLORIDE 0.9% IRR 1,500 ML BOTTLE IR ONE (13:50)
[2019-10-05] MEDS ORDERED: GLYCOPYRROLATE 0.4 MG/2 ML INJ ONE ×2 (14:25)
[2019-10-05] MEDS ORDERED: ONDANSETRON 4 MG/2 ML INJ ONE (14:25)
[2019-10-05] MEDS ORDERED: NEOSTIGMINE 10MG/10 ML INJ MDV ONE (14:25)
[2019-10-05] MEDS ORDERED: LACTATED RINGERS 1,000 ML ONE (14:38)
[2019-10-05] MEDS ORDERED: ONDANSETRON 4 MG/2 ML INJ IV PRN (14:52)
[2019-10-05] MEDS: HYDROmorphone 1 MG/1 ML INJ IV PRN ×5 (14:59→22:23)
--- NOTE | 2019-10-05 15:05 | Post Operative Note ---
Date of procedure: 10/05/19 (dictation: [id number]) Pre-op diagnosis: abdominal fascial dehiscence Post-op diagnosis: same Findings: normal intra-abdominal appearance. No evidence of infection or concerning appearing fluid. Procedure: Ex-lap Abdominal washout Closure of abdominal fascial IVF 1200cc EBL min UOP 250cc Anesthesia: JOY Surgeon: ANKITA GAO Estimated blood loss: minimal Pathology: none Condition: stable Disposition: PACU
[2019-10-05] MEDS ORDERED: HYDROcodone/ACETAMINOPHEN 5-325 MG TAB PO PRN (16:07)
--- NOTE | 2019-10-05 18:44 | Operative Report ---
PREOPERATIVE DIAGNOSIS: Abdominal fascial dehiscence. POSTOPERATIVE DIAGNOSIS: Abdominal fascial dehiscence. PROCEDURES: 1. Exploratory laparotomy. 2. Abdominal washout. 3. Closure of abdominal fascia. 4. AbThera (Wound Vac) placement ATTENDING PHYSICIAN: Matias Krause MD. ANESTHESIA: General. ESTIMATED BLOOD LOSS: Minimal. FLUIDS: 1200 mL. URINE OUTPUT: 250 mL. FINDINGS: Complete fascial dehiscence, the original suture was intact and located on the left side of the wound. It appeared as though a portion of tissue from the right completely off and was adhered to the left side with the suture intact. Bowel was completely viable. There was no evidence of any infection in the abdomen. There was no evidence of any concerning fluid that would suggest a complication from his prior bowel resection and anastomosis. The rest of the abdomen was perfectly fine. SPECIMENS: None. COMPLICATIONS: None. DRAINS: Wound VAC. DISPOSITION: Stable, transferred to Recovery. INDICATIONS: This is a 54-year-old male who is well known to our service as we recently cared for him. After a perforation occurred from an elective colonoscopy, the patient ultimately required a partial colon resection with primary anastomosis. He was discharged home in stable condition. The patient returns today with complaints of sudden onset of severe abdominal pain and leakage of fluid after having a coughing episode. The patient has a fair amount of pain right at the midline incision. Rest of the abdomen is unremarkable. The patient's risk factors for fascial dehiscence were his emergency surgery, obesity, 2 packs per day smoking history, alcohol use, vascular disease. The patient is assessed to be need for abdominal washout and reclosure of abdominal wall. Procedure, risks, benefits were explained to the patient and . Risks included but were not limited to infection, bleeding, pain, injury to surrounding structures, possible need for further procedures in the future. The patient understood and consented. OPERATIVE NOTE: The patient was brought to the operating room and placed on the table in supine position. After adequate general anesthesia was established, the patient was prepped and draped in usual sterile fashion. SCDs were in place. Vancomycin had been administered. Timeout was called. I began by removing the cody. Once I did that, I saw that the entire fascia had completely dehisced. The suture was completely embedded on the left side of the wound. I had to search for the suture to find it. It was not crossing the midline in various locations as one would expect with a typical dehiscence, it is almost as though a layer of the right side of the abdominal wall completely detached and came to the left, keeping the suture all intact. Ultimately, we found the suture and removed it. There was no evidence of any breaks in the suture. It was still tight to the left side of the wall. I was able to gently elevate the abdominal wall from the underlying structures. The small bowel was completely healthy. No signs of any compromise. The area of our anastomosis was covered with the omentum. I did not disrupt that, but the surrounding area was completely clean. We thoroughly irrigated out the abdomen and pelvis. Everything came back normal appearing fluid. There was no suggestion of any infection or any concerning looking fluid. Once that was done, we then turned our attention again to closing the abdominal wall. The tissue at this point being so soon after surgery was thickened and swollen. The fascia itself was a bit swollen as well. What I decide to do at this point is that in addition to our standard closure with a looped PDS suture, we used #1. I placed interrupted horizontal mattress sutures with a #1 Prolene hoping to take tension off the midline as well as to reinforce the closure. I went ahead and put all the #1 Prolene horizontal mattress sutures, first and then as we closed from the bottom up with #1 looped PDS suture. As we passed each Prolene, I then tied that to reinforce the area. We continued all the way up to the superior portion of the abdomen. A malleable was kept underneath the sutures to minimize risk of injury to the underlying bowel. On numerous occasions, I paused to run my hand or finger underneath the incision to make sure that we did not injure anything or catch anything in the suture, we did not. Once the abdominal fascia was completely closed, I checked by running my hand over the top, there were no defects, one of the Prolene sutures was loose, which was just superior to the level of the umbilicus. I went ahead and removed that, but as the wall was already closed. I was unable to place a new one, but I felt that with all the other sutures that we had enough reinforcement that I did not need to do anything else. Wound was thoroughly irrigated. Wound VAC was placed. Good seal was easily achieved. The patient tolerated the procedure well. There were no complications. All counts were correct at the end of the case. Whitfield catheter was removed at the end of the case. I spoke with the at the end of the case. JOB# [id number] SARATH/LEO SANCHEZ
[2019-10-05] MEDS: KETOROLAC 30 MG/1 ML INJ IV SCH (20:18)
[2019-10-05] MEDS ORDERED: ACETAMINOPHEN 325 MG TAB PO PRN ×2 (21:22→21:29)
[2019-10-05] MEDS ORDERED: ALBUTEROL 8.5 GM INHALATION IH PRN (21:29)
[2019-10-05] MEDS ORDERED: ALBUTEROL 2.5 MG/3 ML NEBU IH PRN (21:36)
--- NOTE | 2019-10-05 21:52 | History and Physical Report ---
History of Present Illness Date of examination: 10/05/19 Date of admission: 10/05/19 13:37 Chief complaint: Abdominal Evisceration few hours ago. History of present illness: 54 yo male with hx of CAD, [place], emphysema, COPD who presents with prolonged complicated course as a result of a bowel perforation. He has had 3 surgeries over the course of the past 10 days. Today after coughing a portion of his intestines protruded through the wound. He has severe 8/10 pain with cough and movement. No vomiting. No fever. He was discharged from the hospital recently. Past Medical History Previous Medical History?: Yes Hypertension: Yes (Saw stencil cutter machine two weeks ago and ok per pt) Heart Attack/AMI: Yes (AMI 2017) Asthma: Yes COPD: Yes Additional medical history: high cholestrol, pneumonia Surgical History Coronary Stent: Yes Additional Surgical History: ACF surgery, Cardiac Stents. collapsed right lung: chest tube placed/ BLEEDING ULCER/ COLON REACTION Social History Smoking Status: Former Smoker Substance Use Type: Prescribed Family History Htn Medications Home Medications: Home Medications Medication Instructions Recorded Confirmed Last Taken Type ALBUTEROL Inhaler (OR & NICU) 2 puff IH QID PRN #1 inhalation 08/17/18 09/26/19 Unknown Rx [ProAir HFA Inhaler] Arformoterol Nebu [Brovana Nebu] 15 mcg IH Q12HRT ml 08/17/18 09/26/19 Unknown Rx Benzonatate [Tessalon Perles] 100 mg PO Q8HR capsule 08/17/18 09/26/19 Unknown Rx Citalopram [Celexa] 20 mg PO QDAY #30 tablet 08/17/18 09/26/19 Unknown Rx Ipratropium/Albuterol Sulfate 1 ampul IH Q6HRT #30 ampul.neb 08/17/18 09/26/19 Unknown Rx [DUONEB *Not for PRN Use*] Lisinopril [Zestril TAB] 20 mg PO DAILY #30 tablet 08/17/18 09/26/19 Unknown Rx Metoprolol [Lopressor TAB] 100 mg PO BID #60 tablet 08/17/18 09/26/19 Unknown Rx Pravastatin [Pravachol] 40 mg PO QHS #30 tablet 08/17/18 09/26/19 Unknown Rx Symbicort 160-4.5 Mcg Inhaler 1 puff INHALATION BID #30 08/17/18 09/26/19 Unknown Rx Acetaminophen [Acetaminophen TAB] 2 tab PO Q4H PRN #30 tablet 10/03/19 Unknown Rx Bisacodyl [Dulcolax suppos] 10 mg [place] QDAY PRN #4 supp.rect 10/03/19 Unknown Rx Pantoprazole [Protonix TAB] 40 mg PO BID #60 tablet 10/03/19 Unknown Rx Sucralfate [Carafate] 1 gm PO Q6HR 30 Days oral.liqd 10/03/19 Unknown Rx levoFLOXacin [Levaquin TAB] 750 mg PO QDAY #2 tablet 10/03/19 Unknown Rx oxyCODONE /ACETAMINOPHEN [Percocet 1 tab PO Q4H PRN #26 tablet 10/03/19 Unknown Rx 5/325 mg] Review of Systems ROS: Stated complaint: POST OP PAIN Other details as noted in HPI Comment: All other systems reviewed and negative Constitutional: denies: fever, malaise Gastrointestinal: abdominal pain. denies: nausea, vomiting Past History Past Medical History: acute TN (2 years ago), CAD, COPD, hypertension, other (obesity) Past Surgical History: arthroscopy (knee), PTCA (1 stent placed), bowel surgery (partial colon resection.), Other Social history: smoking (2ppd), alcohol abuse (2 beers/day) Family history: no significant family history Medications and Allergies Allergies Allergy/AdvReac Type Severity Reaction Status Date / Time Sulfa (Sulfonamide Allergy Severe Rash Verified 03/22/16 18:34 Antibiotics) oxytetracycline Allergy Unknown Verified 03/22/16 10:32 [From Terramycin] oxytetracycline HCl Allergy Unknown Verified 03/22/16 10:32 [From Terramycin] Penicillins AdvReac Severe Shortness Verified 03/22/16 18:34 of Breath Home Medications Medication Instructions Recorded Confirmed Last Taken Type ALBUTEROL Inhaler (OR & NICU) 2 puff IH QID PRN #1 inhalation 08/17/18 09/26/19 Unknown Rx [ProAir HFA Inhaler] Arformoterol Nebu [Brovana Nebu] 15 mcg IH Q12HRT ml 08/17/18 10/06/19 10/05/19 Rx Benzonatate [Tessalon Perles] 100 mg PO Q8HR capsule 08/17/18 10/06/19 10/03/19 21:00 Rx Citalopram [Celexa] 20 mg PO QDAY #30 tablet 08/17/18 09/26/19 Unknown Rx Ipratropium/Albuterol Sulfate 1 ampul IH Q6HRT #30 ampul.neb 08/17/18 10/06/19 10/05/19 21:00 Rx [DUONEB *Not for PRN Use*] Lisinopril [Zestril TAB] 20 mg PO DAILY #30 tablet 08/17/18 10/06/19 10/05/19 08:00 Rx Metoprolol [Lopressor TAB] 100 mg PO BID #60 tablet 08/17/18 10/06/19 10/05/19 08:00 Rx Pravastatin [Pravachol] 40 mg PO QHS #30 tablet 08/17/18 10/06/19 10/04/19 22:00 Rx Symbicort 160-4.5 Mcg Inhaler 1 puff INHALATION BID #30 08/17/18 10/06/19 09/05/19 23:00 Rx Acetaminophen [Acetaminophen TAB] 2 tab PO Q4H PRN #30 tablet 10/03/19 Unknown Rx Bisacodyl [Dulcolax suppos] 10 mg [place] QDAY PRN #4 supp.rect 10/03/19 Unknown Rx Pantoprazole [Protonix TAB] 40 mg PO BID #60 tablet 10/03/19 10/06/19 10/04/19 21:00 Rx Sucralfate [Carafate] 1 gm PO Q6HR 30 Days oral.liqd 10/03/19 10/06/19 10/05/19 08:00 Rx levoFLOXacin [Levaquin TAB] 750 mg PO QDAY #2 tablet 10/03/19 10/06/19 10/04/19 08:00 Rx oxyCODONE /ACETAMINOPHEN [Percocet 1 tab PO Q4H PRN #26 tablet 10/03/19 10/06/19 10/04/19 21:00 Rx 5/325 mg] Active Meds: Active Medications Acetaminophen/Hydrocodone Bitart ([place] 5/325) 2 each PO Q6H PRN PRN Reason: Pain, Moderate (4-6) Vancomycin HCl (Vancomycin/Ns 1 Gm/250 Ml) 1 gm in 250 mls @ 167.007 mls/hr IV PREOP NR; Protocol Stop: 10/05/19 23:59 Ketorolac Tromethamine (Toradol) 30 mg IV Q6H VERÓNICA Stop: 10/10/19 19:59 Last Admin: 10/05/19 20:18 Dose: 30 mg Documented by: Exam - Constitutional Vitals: Temp Pulse Resp BP Pulse Ox 98.6 F 87 17 155/79 93 10/05/19 19:37 10/05/19 19:37 10/05/19 20:18 10/05/19 19:37 10/05/19 19:37 General appearance: Present: no acute distress, well-nourished - EENT Eyes: Present: PERRL ENT: hearing intact, clear oral mucosa - Neck Neck: Present: supple, normal ROM - Respiratory Respiratory effort: normal Respiratory: bilateral: CTA - Cardiovascular Heart rate: 78 Rhythm: regular Heart Sounds: Present: S1 & S2. Absent: rub, click - Extremities Extremities: pulses symmetrical, No edema Peripheral Pulses: within normal limits - Abdominal General gastrointestinal: Present: soft, non-tender, non-distended, normal bowel sounds Localized gastrointestinal: tender: diffuse (Evisceration,Abd wall dehiscence) Male genitourinary: Present: normal - Integumentary Integumentary: Present: clear, warm, dry - Musculoskeletal Musculoskeletal: gait normal, strength equal bilaterally - Psychiatric Psychiatric: appropriate mood/affect, intact judgment & insight - Neurologic Neurologic: CNII-XII intact, moves all extremities - Allied Health Allied health notes reviewed: nursing, case management Results - Labs CBC & Chem 7: 10/06/19 05:36 10/06/19 05:36 Labs: Short CBC 10/06/19 Range/Units 05:36 WBC 21.8 H (4.5-11.0) K/mm3 Hgb 12.4 (11.8-15.2) gm/dl Hct 38.1 (35.5-45.6) % Plt Count 287 (140-440) K/mm3 BMP 10/06/19 05:36 Sodium 135 L Potassium 4.3 Chloride 95.9 L Carbon Dioxide 24 BUN 11 Creatinine 0.7 L Glucose 98 Calcium 8.5 Liver Function 10/06/19 Range/Units 05:36 Total Bilirubin 0.40 (0.1-1.2) mg/dL AST 22 (5-40) units/L ALT 9 (7-56) units/L Alkaline Phosphatase 78 (35-129) units/L Albumin 2.5 L (3.9-5) g/dL Assessment and Plan Advance Directives: Yes (Full code) VTE prophylaxis?: Chemical Plan of care discussed with patient/family: Yes - Patient Problems (1) Evisceration of bowel Current Visit: Yes Status: Acute Plan to address problem: Went in for emergent surgery. Surgery op note Pre-op diagnosis: abdominal fascial dehiscence Post-op diagnosis: same Findings: normal intra-abdominal appearance. No evidence of infection or concerning appearing fluid. Procedure: Ex-lap Abdominal washout Closure of abdominal fascial IVF 1200cc EBL min UOP 250cc Anesthesia: GETA Surgeon: ANKITA GAO Estimated blood loss: minimal Pathology: none Condition: stable Disposition: PACU Patient initiated on IV Abx for prophylaxis (2) HTN (hypertension) Current Visit: Yes Status: Chronic Qualifiers: Hypertension type: essential hypertension Qualified Code(s): I10 - Essential (primary) hypertension Plan to address problem: Cont anti hypertensives (3) COPD (chronic obstructive pulmonary disease) Current Visit: Yes Status: Chronic Qualifiers: COPD type: unspecified COPD Qualified Code(s): J44.9 - Chronic obstructive pulmonary disease, unspecified Plan to address problem: Cont Neb tx (4) GERD (gastroesophageal reflux disease) Current Visit: Yes Status: Chronic Qualifiers: Esophagitis presence: without esophagitis Qualified Code(s): K21.9 - Gastro-esophageal reflux disease without esophagitis Plan to address problem: On PPI's (5) HLD (hyperlipidemia) Current Visit: Yes Status: Chronic Qualifiers: Hyperlipidemia type: mixed hyperlipidemia Qualified Code(s): E78.2 - Mixed hyperlipidemia Plan to address problem: Hold staaatins for now (6) DVT prophylaxis Current Visit: No Status: Acute Plan to address problem: On SCD's and GI prophylaxis
[2019-10-05] MEDS ORDERED: SODIUM CHLORIDE 0.9% 1000 ML 1,000 ML IV SCH (22:00)
[2019-10-05] MEDS: FAMOTIDINE 20 MG/2 ML INJ IV SCH (22:22)
[2019-10-05] MEDS: CEFEPIME/NS 2 GM/100 ML 2 GM/100 ML BAG IV SCH (22:23)
[2019-10-06] MEDS: IPRATROPIUM/ALBUTEROL SULFATE 3 ML AMPUL.NEB IH SCH ×4 (02:02→20:10)
[2019-10-06] MEDS: KETOROLAC 30 MG/1 ML INJ IV SCH ×4 (02:03→20:21)
[2019-10-06] MEDS: CEFEPIME/NS 2 GM/100 ML 2 GM/100 ML BAG IV SCH ×3 (06:04→21:15)
[2019-10-06 06:43] LABS: Hematocrit 38.1 % (35.5-45.6); Hemoglobin 12.4 gm/dl (11.8-15.2); Mean Corpuscular HGB Conc 33 % (32-34); Mean Corpuscular Volume 93 fl (84-94); Platelet Count 287 K/mm3 (140-440); Red Blood Count 4.11 M/mm3 (3.65-5.03); Red Cell Distribution Width 14.5 % (13.2-15.2)
[2019-10-06 07:05] LABS: Alanine Aminotransferase 9 units/L (7-56); Albumin 2.5 g/dL (3.9-5); BUN/Creatinine Ratio 16; Blood Urea Nitrogen 11 mg/dL (9-20); Calcium 8.5 mg/dL (8.4-10.2); Hemolysis Index 66
[2019-10-06] MEDS ORDERED: ARFORMOTEROL 15 MCG/2 ML NEBU IH SCH (08:00)
[2019-10-06] MEDS: METOPROLOL TARTRATE 100 MG TAB PO SCH ×2 (09:35→21:15)
[2019-10-06] MEDS: BUDESONIDE 0.5 MG/2 ML NEBU IH SCH ×2 (09:35→20:03)
[2019-10-06] MEDS: ARFORMOTEROL 15 MCG/2 ML NEBU IH SCH ×2 (09:35→20:03)
[2019-10-06] MEDS: CITALOPRAM 20 MG TAB PO SCH (09:35)
[2019-10-06] MEDS: PANTOPRAZOLE 40 MG TAB PO SCH ×2 (09:35→21:16)
[2019-10-06] MEDS: LISINOPRIL 20 MG TAB PO SCH (09:35)
[2019-10-06] MEDS: FAMOTIDINE 20 MG/2 ML INJ IV SCH (09:35)
[2019-10-06] MEDS ORDERED: SYMBICORT INHALATION SCH (10:00)
[2019-10-06 10:49] LABS: Band Neutrophils # (Manual) 0.4 K/mm3; Basophils % (Manual) 0 % (0.0-1.8); Eosinophils % (Manual) 0 % (0.0-4.3); Platelet Estimate Consistent w Auto; RBC Morphology Normal; Total Cells Counted 100
[2019-10-06] MEDS ORDERED: SODIUM CHLORIDE 0.45% 1000 ML 1,000 ML IV SCH (13:00)
[2019-10-06] MEDS: oxyCODONE /ACETAMINOPHEN 5-325MG TAB PO PRN (13:19)
--- NOTE | 2019-10-06 13:39 | Progress Note ---
Assessment and Plan 54 yo M s/p Ex-lap, Abdominal washout, Closure of abdominal fascial, POD 1 for fascial dehiscence Plan: 1. Cardiac diet - will add protein supplements TID 2. change to maintenance IVF until Na improves 3. repeat CBC and BMP in am. WBC elevation likely reactive from surgery 4. prn pain control - patient on [place] PO PRN, dilaudid IV PRN, and toradol IV. Will dc norco and start percocet. Will need to find a regimen that facilitates OOB 5. OOB to chair or edge of bed today 6. PT consult 7. IV abx 8. IS/pulm toilet 9. DVT ppx 10. abdominal binder at all times. 11. wound vac to -125mmHG continuous suction Thank you, please call with questions Subjective Date of service: 10/06/19 Narrative: Pt seen and examined. c/o abdominal pain associated with incision. No f/c. NO cp, sob. No n/v. Tolerating diet. Has not gotten out of bed due to pain. States pain medications makes him a little unsteady at times so he has not wanted to get OOB. Objective Vital Signs - 12hr 10/06/19 10/06/19 10/06/19 02:03 02:07 02:08 Temperature Pulse Rate Pulse Rate [ 91 H Anterior Bilateral Throughout] Respiratory 17 Rate Respiratory Rate [Abdomen] Respiratory 18 Rate [Anterior Bilateral Throughout] Blood Pressure Blood Pressure [Left] O2 Sat by Pulse 98 Oximetry 10/06/19 10/06/19 10/06/19 02:33 04:33 06:05 Temperature 97.4 F L Pulse Rate 86 Pulse Rate [ Anterior Bilateral Throughout] Respiratory 17 20 17 Rate Respiratory Rate [Abdomen] Respiratory Rate [Anterior Bilateral Throughout] Blood Pressure 131/69 Blood Pressure [Left] O2 Sat by Pulse 97 Oximetry 10/06/19 10/06/19 10/06/19 08:30 10:00 10:06 Temperature 97.2 F L Pulse Rate 89 Pulse Rate [ 88 Anterior Bilateral Throughout] Respiratory 20 Rate Respiratory 17 Rate [Abdomen] Respiratory 20 Rate [Anterior Bilateral Throughout] Blood Pressure Blood Pressure 141/63 [Left] O2 Sat by Pulse 94 95 Oximetry 10/06/19 11:00 Temperature 98.1 F Pulse Rate 74 Pulse Rate [ Anterior Bilateral Throughout] Respiratory 20 Rate Respiratory Rate [Abdomen] Respiratory Rate [Anterior Bilateral Throughout] Blood Pressure Blood Pressure 135/71 [Left] O2 Sat by Pulse 95 Oximetry - General physical appearance Narrative Exam: Gen: AAOx3. NAD CV: S1, S2+ Resp; even and unlabored Abd: soft, ND, +TTP near midline. Abdominal wound vac with good seal, no leak - serosang drainage in canister. Abdominal binder in place. No r/r/g Ext: no c/c/e - [place] cath in place - Labs 10/06/19 05:36 10/06/19 05:36 Diabetes panel 10/06/19 10/06/19 Range/Units 05:36 05:36 Sodium 135 L (137-145) mmol/L Potassium 4.3 (3.6-5.0) mmol/L Chloride 95.9 L (98-107) mmol/L Carbon Dioxide 24 (22-30) mmol/L BUN 11 (9-20) mg/dL Creatinine 0.7 L (0.8-1.5) mg/dL Glucose 98 (75-100) mg/dL Hemoglobin A1c 5.7 (4-6) % Calcium 8.5 (8.4-10.2) mg/dL AST 22 (5-40) units/L ALT 9 (7-56) units/L Alkaline Phosphatase 78 (35-129) units/L Total Protein 5.7 L (6.3-8.2) g/dL Albumin 2.5 L (3.9-5) g/dL Calcium panel 10/06/19 Range/Units 05:36 Calcium 8.5 (8.4-10.2) mg/dL Albumin 2.5 L (3.9-5) g/dL Pituitary panel 10/06/19 Range/Units 05:36 Sodium 135 L (137-145) mmol/L Potassium 4.3 (3.6-5.0) mmol/L Chloride 95.9 L (98-107) mmol/L Carbon Dioxide 24 (22-30) mmol/L BUN 11 (9-20) mg/dL Creatinine 0.7 L (0.8-1.5) mg/dL Glucose 98 (75-100) mg/dL Calcium 8.5 (8.4-10.2) mg/dL Adrenal panel 10/06/19 Range/Units 05:36 Sodium 135 L (137-145) mmol/L Potassium 4.3 (3.6-5.0) mmol/L Chloride 95.9 L (98-107) mmol/L Carbon Dioxide 24 (22-30) mmol/L BUN 11 (9-20) mg/dL Creatinine 0.7 L (0.8-1.5) mg/dL Glucose 98 (75-100) mg/dL Calcium 8.5 (8.4-10.2) mg/dL Total Bilirubin 0.40 (0.1-1.2) mg/dL AST 22 (5-40) units/L ALT 9 (7-56) units/L Alkaline Phosphatase 78 (35-129) units/L Total Protein 5.7 L (6.3-8.2) g/dL Albumin 2.5 L (3.9-5) g/dL
--- NOTE | 2019-10-06 17:26 | Progress Note ---
Assessment and Plan - Patient Problems (1) Evisceration of bowel Current Visit: Yes Status: Acute Plan to address problem: Patient status post surgical correction daughter well pain stable. (2) COPD (chronic obstructive pulmonary disease) Current Visit: Yes Status: Chronic Qualifiers: COPD type: unspecified COPD Qualified Code(s): J44.9 - Chronic obstructive pulmonary disease, unspecified Plan to address problem: She with COPD has not been a factor treat with nebulizer treatments when necessa ry we'll also help with cough of cough suppressant. (3) HLD (hyperlipidemia) Current Visit: Yes Status: Chronic Qualifiers: Hyperlipidemia type: mixed hyperlipidemia Qualified Code(s): E78.2 - Mixed hyperlipidemia Plan to address problem: Continue statin as indicated. (4) HTN (hypertension) Current Visit: Yes Status: Chronic Qualifiers: Hypertension type: essential hypertension Qualified Code(s): I10 - Essential (primary) hypertension Plan to address problem: Patient blood pressure remains optimally controlled. No new meds to add this time. (5) COPD (chronic obstructive pulmonary disease) Current Visit: No Status: Acute Qualifiers: COPD type: COPD with acute exacerbation Qualified Code(s): J44.1 - Chronic obstructive pulmonary disease with (acute) exacerbation History Interval history: Patient 54-year-old male with history of coronary artery disease status post NE, COPD presents with bowel perforation requiring 3 surgeries since the . Patient had a cough with fistula pain found to require surgical correction. Patient has completed his surgery but had past history of hypertension COPD and morbid obesity has been stable and controlled. Patient also has malnutrition secondary to his surgery unable to eat. Hospitalist Physical - Constitutional Vitals: Temp Pulse Resp BP Pulse Ox 98.1 F 78 20 135/71 97 10/06/19 11:00 10/06/19 15:46 10/06/19 15:46 10/06/19 11:00 10/06/19 15:30 General appearance: Present: no acute distress, well-nourished - EENT Eyes: Present: PERRL, EOM intact ENT: hearing intact, clear oral mucosa, dentition normal - Neck Neck: Present: supple, normal ROM - Respiratory Respiratory effort: normal Respiratory: bilateral: diminished - Cardiovascular Rhythm: irregularly irregular - Extremities Extremities: no ischemia, pulses intact, pulses symmetrical Extremity abnormal: edema - Abdominal General gastrointestinal: soft, non-tender, non-distended, normal bowel sounds - Integumentary Integumentary: Present: clear, warm, dry - Psychiatric Psychiatric: appropriate mood/affect, intact judgment & insight, memory intact - Neurologic Neurologic: CNII-XII intact, focal deficits, moves all extremities Results - Labs CBC & Chem 7: 10/06/19 05:36 10/06/19 05:36 Labs: Laboratory Last Values WBC 21.8 K/mm3 (4.5-11.0) H 10/06/19 05:36 RBC 4.11 M/mm3 (3.65-5.03) 10/06/19 05:36 Hgb 12.4 gm/dl (11.8-15.2) 10/06/19 05:36 Hct 38.1 % (35.5-45.6) 10/06/19 05:36 MCV 93 fl (84-94) 10/06/19 05:36 MCH 30 pg (28-32) 10/06/19 05:36 MCHC 33 % (32-34) 10/06/19 05:36 RDW 14.5 % (13.2-15.2) 10/06/19 05:36 Plt Count 287 K/mm3 (140-440) 10/06/19 05:36 Add Manual Diff Complete 10/06/19 05:36 Total Counted 100 10/06/19 05:36 Seg Neutrophils % Pocket Machine Operator 10/06/19 05:36 Seg Neuts % (Manual) 91.0 % (40.0-70.0) H 10/06/19 05:36 Band Neutrophils % 2.0 % 10/06/19 05:36 Lymphocytes % (Manual) 2.0 % (13.4-35.0) L 10/06/19 05:36 Reactive Lymphs % (Man) 0 % 10/06/19 05:36 Monocytes % (Manual) 5.0 % (0.0-7.3) 10/06/19 05:36 Eosinophils % (Manual) 0 % (0.0-4.3) 10/06/19 05:36 Basophils % (Manual) 0 % (0.0-1.8) 10/06/19 05:36 Metamyelocytes % 0 % 10/06/19 05:36 Myelocytes % 0 % 10/06/19 05:36 Promyelocytes % 0 % 10/06/19 05:36 Blast Cells % 0 % 10/06/19 05:36 Nucleated RBC % Not Reportable 10/06/19 05:36 Seg Neutrophils # Man 19.8 K/mm3 (1.8-7.7) H 10/06/19 05:36 Band Neutrophils # 0.4 K/mm3 10/06/19 05:36 Lymphocytes # (Manual) 0.4 K/mm3 (1.2-5.4) L 10/06/19 05:36 Abs React Lymphs (Man) 0.0 K/mm3 10/06/19 05:36 Monocytes # (Manual) 1.1 K/mm3 (0.0-0.8) H 10/06/19 05:36 Eosinophils # (Manual) 0.0 K/mm3 (0.0-0.4) 10/06/19 05:36 Basophils # (Manual) 0.0 K/mm3 (0.0-0.1) 10/06/19 05:36 Metamyelocytes # 0.0 K/mm3 10/06/19 05:36 Myelocytes # 0.0 K/mm3 10/06/19 05:36 Promyelocytes # 0.0 K/mm3 10/06/19 05:36 Blast Cells # 0.0 K/mm3 10/06/19 05:36 WBC Morphology Not Reportable 10/06/19 05:36 Hypersegmented Neuts Not Reportable 10/06/19 05:36 Hyposegmented Neuts Not Reportable 10/06/19 05:36 Hypogranular Neuts Not Reportable 10/06/19 05:36 Smudge Cells Not Reportable 10/06/19 05:36 Toxic Granulation Not Reportable 10/06/19 05:36 Toxic Vacuolation Not Reportable 10/06/19 05:36 Dohle Bodies Not Reportable 10/06/19 05:36 Pelger-Huet Anomaly Not Reportable 10/06/19 05:36 Andres Rods Not Reportable 10/06/19 05:36 Platelet Estimate Consistent w auto 10/06/19 05:36 Clumped Platelets Not Reportable 10/06/19 05:36 Plt Clumps, EDTA Not Reportable 10/06/19 05:36 Large Platelets Not Reportable 10/06/19 05:36 Giant Platelets Not Reportable 10/06/19 05:36 Platelet Satelliting Not Reportable 10/06/19 05:36 Plt Morphology Comment Not Reportable 10/06/19 05:36 RBC Morphology Normal 10/06/19 05:36 Dimorphic RBCs Not Reportable 10/06/19 05:36 Polychromasia Not Reportable 10/06/19 05:36 Hypochromasia Not Reportable 10/06/19 05:36 Poikilocytosis Not Reportable 10/06/19 05:36 Anisocytosis Not Reportable 10/06/19 05:36 Microcytosis Not Reportable 10/06/19 05:36 Macrocytosis Not Reportable 10/06/19 05:36 Spherocytes Not Reportable 10/06/19 05:36 Pappenheimer Bodies Not Reportable 10/06/19 05:36 Sickle Cells Not Reportable 10/06/19 05:36 Target Cells Not Reportable 10/06/19 05:36 Tear Drop Cells Not Reportable 10/06/19 05:36 Ovalocytes Not Reportable 10/06/19 05:36 Helmet Cells Not Reportable 10/06/19 05:36 [place] Bodies Not Reportable 10/06/19 05:36 [place] Rings Not Reportable 10/06/19 05:36 [place] Cells Not Reportable 10/06/19 05:36 Bite Cells Not Reportable 10/06/19 05:36 Crenated Cell Not Reportable 10/06/19 05:36 Elliptocytes Not Reportable 10/06/19 05:36 Acanthocytes (Spur) Not Reportable 10/06/19 05:36 Rouleaux Not Reportable 10/06/19 05:36 Hemoglobin C Crystals Not Reportable 10/06/19 05:36 Schistocytes Not Reportable 10/06/19 05:36 Malaria parasites Not Reportable 10/06/19 05:36 Toni Bodies Not Reportable 10/06/19 05:36 Hem Pathologist Commnt No 10/06/19 05:36 Sodium 135 mmol/L (137-145) L 10/06/19 05:36 Potassium 4.3 mmol/L (3.6-5.0) 10/06/19 05:36 Chloride 95.9 mmol/L (98-107) L 10/06/19 05:36 Carbon Dioxide 24 mmol/L (22-30) 10/06/19 05:36 Anion Gap 19 mmol/L 10/06/19 05:36 BUN 11 mg/dL (9-20) 10/06/19 05:36 Creatinine 0.7 mg/dL (0.8-1.5) L 10/06/19 05:36 Estimated GFR > 60 ml/min 10/06/19 05:36 BUN/Creatinine Ratio 16 % 10/06/19 05:36 Glucose 98 mg/dL (75-100) 10/06/19 05:36 Hemoglobin A1c 5.7 % (4-6) 10/06/19 05:36 Calcium 8.5 mg/dL (8.4-10.2) 10/06/19 05:36 Total Bilirubin 0.40 mg/dL (0.1-1.2) 10/06/19 05:36 AST 22 units/L (5-40) 10/06/19 05:36 ALT 9 units/L (7-56) 10/06/19 05:36 Alkaline Phosphatase 78 units/L (35-129) 10/06/19 05:36 Total Protein 5.7 g/dL (6.3-8.2) L 10/06/19 05:36 Albumin 2.5 g/dL (3.9-5) L 10/06/19 05:36 Albumin/Globulin Ratio 0.8 % 10/06/19 05:36 Active Medications - Current Medications Current Medications: Generic Name Dose Route Start Last Admin Trade Name Freq PRN Reason Stop Dose Admin Acetaminophen 650 mg 10/05/19 21:22 Tylenol PO Q4H PRN Pain MILD(1-3)/Fever >100.5/ROMANO Albuterol 2.5 mg 10/05/19 21:36 Proventil IH Q4HRT PRN Shortness Of Breath Albuterol/Ipratropium 1 ampul 10/06/19 02:00 10/06/19 15:30 Duoneb *Not For Prn Use* IH 1 ampul Q6HRT VERÓNICA Administration Arformoterol Tartrate 15 mcg 10/06/19 08:30 10/06/19 09:35 Brovana Nebu IH 15 mcg Q12HRT VERÓNICA Administration Budesonide 1 mg 10/06/19 08:30 10/06/19 09:35 Pulmicort IH 1 mg Q12HRT VERÓNICA Administration Citalopram Hydrobromide 20 mg 10/06/19 10:00 10/06/19 09:35 Celexa PO 20 mg QDAY VERÓNICA Administration Hydromorphone HCl 0.5 mg 10/05/19 21:22 10/05/19 22:23 Dilaudid IV 0.5 mg Q3H PRN Administration Pain , Severe (7-10) Cefepime HCl 2 gm in 100 mls @ 200 mls/hr 10/05/19 22:00 10/06/19 13:20 Cefepime/Ns 2 Gm/100 Ml IV 200 mls/hr Q8HR VERÓNICA Administration Protocol Sodium Chloride 1,000 mls @ 50 mls/hr 10/06/19 13:00 10/06/19 13:20 Nacl 0.45% 1000 Ml IV 50 mls/hr DIRECT VERÓNICA Administration Ketorolac Tromethamine 30 mg 10/05/19 20:00 10/06/19 16:22 Toradol IV 10/10/19 19:59 30 mg Q6H VERÓNICA Administration Lisinopril 20 mg 10/06/19 10:00 10/06/19 09:35 Zestril PO 20 mg DAILY VERÓNICA Administration Metoprolol Tartrate 100 mg 10/06/19 10:00 10/06/19 09:35 Metoprolol PO 100 mg BID VERÓNICA Administration Ondansetron HCl 4 mg 10/05/19 21:22 Zofran IV Q3H PRN Nausea And Vomiting Oxycodone/Acetaminophen 2 tab 10/06/19 12:26 10/06/19 13:19 Percocet 5/325 PO 2 tab Q6H PRN Administration Pain, Moderate (4-6) Pantoprazole Sodium 40 mg 10/06/19 10:00 10/06/19 09:35 Protonix PO 40 mg BID VERÓNICA Administration Sodium Chloride 10 ml 10/05/19 22:00 10/06/19 16:22 Sodium Chloride Flush Syringe 10 Ml IV 10 ml BID VERÓNICA Administration Sodium Chloride 10 ml 10/05/19 21:22 Sodium Chloride Flush Syringe 10 Ml IV PRN PRN LINE FLUSH
[2019-10-06] MEDS: HYDROmorphone 1 MG/1 ML INJ IV PRN (20:28)
[2019-10-07] MEDS: HYDROmorphone 1 MG/1 ML INJ IV PRN ×2 (00:30→04:54)
[2019-10-07] MEDS: IPRATROPIUM/ALBUTEROL SULFATE 3 ML AMPUL.NEB IH SCH ×4 (03:00→21:58)
[2019-10-07] MEDS: KETOROLAC 30 MG/1 ML INJ IV SCH ×4 (04:47→20:52)
[2019-10-07] MEDS: CEFEPIME/NS 2 GM/100 ML 2 GM/100 ML BAG IV SCH ×3 (05:49→21:02)
[2019-10-07 06:20] LABS: Hematocrit 32.7 % (35.5-45.6); Hemoglobin 10.9 gm/dl (11.8-15.2); Mean Corpuscular HGB Conc 33 % (32-34); Mean Corpuscular Volume 92 fl (84-94); Platelet Count 297 K/mm3 (140-440); Red Blood Count 3.55 M/mm3 (3.65-5.03); Red Cell Distribution Width 14.4 % (13.2-15.2)
[2019-10-07 06:43] LABS: BUN/Creatinine Ratio 14; Blood Urea Nitrogen 11 mg/dL (9-20); Calcium 8.1 mg/dL (8.4-10.2); Hemolysis Index 29
[2019-10-07] MEDS: oxyCODONE /ACETAMINOPHEN 5-325MG TAB PO PRN ×3 (08:19→20:49)
[2019-10-07] MEDS: ARFORMOTEROL 15 MCG/2 ML NEBU IH SCH ×2 (08:26→21:59)
[2019-10-07] MEDS: BUDESONIDE 0.5 MG/2 ML NEBU IH SCH ×2 (08:26→21:58)
[2019-10-07] MEDS: LISINOPRIL 20 MG TAB PO SCH (10:35)
[2019-10-07] MEDS: CITALOPRAM 20 MG TAB PO SCH (10:35)
[2019-10-07] MEDS: METOPROLOL TARTRATE 100 MG TAB PO SCH ×2 (10:36→21:02)
[2019-10-07] MEDS: PANTOPRAZOLE 40 MG TAB PO SCH ×2 (10:36→21:03)
--- NOTE | 2019-10-07 12:49 | Progress Note ---
Assessment and Plan 54 yo M s/p Ex-lap, Abdominal washout, Closure of abdominal fascial, POD 2 for fascial dehiscence Plan: 1. Cardiac diet - with protein supplements TID. Supervisor Powdered Sugar consult 2. dc IVF 3. Trend WBC daily. WBC elevation likely reactive from surgery 4. prn pain control - dilaudid IV PRN, and toradol IV, percocet PO prn. 5. OOB 6. PT consult 7. IV abx 8. IS/pulm toilet - wean supplemental O2 9. DVT ppx 10. abdominal binder at all times. 11. wound vac to -125mmHG continuous suction 12. DC continuous pulse ox, tele monitoring, and [place] catheter if ok with hospitalist service D/W Dr. Street. Thank you, please call with questions Subjective Date of service: 10/07/19 Objective Vital Signs - 12hr 10/07/19 10/07/19 10/07/19 03:10 04:46 08:26 Temperature 98.1 F Pulse Rate 86 Pulse Rate [ 80 Anterior Bilateral Throughout] Respiratory 20 Rate Respiratory 18 Rate [Anterior Bilateral Throughout] Blood Pressure 122/60 O2 Sat by Pulse 90 93 Oximetry 10/07/19 09:00 Temperature Pulse Rate Pulse Rate [ 82 Anterior Bilateral Throughout] Respiratory Rate Respiratory 20 Rate [Anterior Bilateral Throughout] Blood Pressure O2 Sat by Pulse Oximetry - Labs 10/07/19 05:54 10/07/19 05:54 Diabetes panel 10/07/19 Range/Units 05:54 Sodium 137 (137-145) mmol/L Potassium 3.8 (3.6-5.0) mmol/L Chloride 98.0 (98-107) mmol/L Carbon Dioxide 27 (22-30) mmol/L BUN 11 (9-20) mg/dL Creatinine 0.8 (0.8-1.5) mg/dL Glucose 95 (75-100) mg/dL Calcium 8.1 L (8.4-10.2) mg/dL Calcium panel 10/07/19 Range/Units 05:54 Calcium 8.1 L (8.4-10.2) mg/dL Pituitary panel 10/07/19 Range/Units 05:54 Sodium 137 (137-145) mmol/L Potassium 3.8 (3.6-5.0) mmol/L Chloride 98.0 (98-107) mmol/L Carbon Dioxide 27 (22-30) mmol/L BUN 11 (9-20) mg/dL Creatinine 0.8 (0.8-1.5) mg/dL Glucose 95 (75-100) mg/dL Calcium 8.1 L (8.4-10.2) mg/dL Adrenal panel 10/07/19 Range/Units 05:54 Sodium 137 (137-145) mmol/L Potassium 3.8 (3.6-5.0) mmol/L Chloride 98.0 (98-107) mmol/L Carbon Dioxide 27 (22-30) mmol/L BUN 11 (9-20) mg/dL Creatinine 0.8 (0.8-1.5) mg/dL Glucose 95 (75-100) mg/dL Calcium 8.1 L (8.4-10.2) mg/dL
--- NOTE | 2019-10-07 13:57 | Progress Note ---
Assessment and Plan - Patient Problems (1) Evisceration of bowel Current Visit: Yes Status: Acute Plan to address problem: Patient status post surgical correction daughter well pain stable. (2) COPD (chronic obstructive pulmonary disease) Current Visit: Yes Status: Chronic Qualifiers: COPD type: unspecified COPD Qualified Code(s): J44.9 - Chronic obstructive pulmonary disease, unspecified Plan to address problem: Doing much better. Would discontinue continuous pulse ox so patient can become more active walking around. Judgment is debility. (3) HLD (hyperlipidemia) Current Visit: Yes Status: Chronic Qualifiers: Hyperlipidemia type: mixed hyperlipidemia Qualified Code(s): E78.2 - Mixed hyperlipidemia Plan to address problem: Continue statin as indicated. (4) HTN (hypertension) Current Visit: Yes Status: Chronic Qualifiers: Hypertension type: essential hypertension Qualified Code(s): I10 - Essential (primary) hypertension Plan to address problem: Patient has optimal control at present. Continue present pressure management. (5) COPD (chronic obstructive pulmonary disease) Current Visit: No Status: Acute Qualifiers: COPD type: COPD with acute exacerbation Qualified Code(s): J44.1 - Chronic obstructive pulmonary disease with (acute) exacerbation History Interval history: Patient sitting in chair feels good. States pain was better controlled. Looking forward to getting up and getting around. No nausea vomiting no diarrhea. Minimal incisional pain. Hospitalist Physical - Constitutional Vitals: Temp Pulse Resp BP Pulse Ox 98.1 F 77 20 122/60 93 10/07/19 04:46 10/07/19 13:39 10/07/19 13:39 10/07/19 04:46 10/07/19 08:26 General appearance: Present: no acute distress, well-nourished - Neck Neck: Present: supple, normal ROM - Respiratory Respiratory effort: normal Respiratory: bilateral: CTA - Cardiovascular Rhythm: regular - Extremities Extremities: no ischemia, pulses intact, normal temperature, normal color Extremity abnormal: edema Peripheral Pulses: within normal limits - Abdominal General gastrointestinal: soft, other (surgical binder. No clear drainage.) - Integumentary Integumentary: Present: clear, warm, dry - Psychiatric Psychiatric: appropriate mood/affect, intact judgment & insight, memory intact Results - Labs CBC & Chem 7: 10/07/19 05:54 10/07/19 05:54 Labs: Laboratory Last Values WBC 21.5 K/mm3 (4.5-11.0) H 10/07/19 05:54 RBC 3.55 M/mm3 (3.65-5.03) L 10/07/19 05:54 Hgb 10.9 gm/dl (11.8-15.2) L 10/07/19 05:54 Hct 32.7 % (35.5-45.6) L 10/07/19 05:54 MCV 92 fl (84-94) 10/07/19 05:54 MCH 31 pg (28-32) 10/07/19 05:54 MCHC 33 % (32-34) 10/07/19 05:54 RDW 14.4 % (13.2-15.2) 10/07/19 05:54 Plt Count 297 K/mm3 (140-440) 10/07/19 05:54 Add Manual Diff Complete 10/06/19 05:36 Total Counted 100 10/06/19 05:36 Seg Neutrophils % Installation Engineer 10/06/19 05:36 Seg Neuts % (Manual) 91.0 % (40.0-70.0) H 10/06/19 05:36 Band Neutrophils % 2.0 % 10/06/19 05:36 Lymphocytes % (Manual) 2.0 % (13.4-35.0) L 10/06/19 05:36 Reactive Lymphs % (Man) 0 % 10/06/19 05:36 Monocytes % (Manual) 5.0 % (0.0-7.3) 10/06/19 05:36 Eosinophils % (Manual) 0 % (0.0-4.3) 10/06/19 05:36 Basophils % (Manual) 0 % (0.0-1.8) 10/06/19 05:36 Metamyelocytes % 0 % 10/06/19 05:36 Myelocytes % 0 % 10/06/19 05:36 Promyelocytes % 0 % 10/06/19 05:36 Blast Cells % 0 % 10/06/19 05:36 Nucleated RBC % Not Reportable 10/06/19 05:36 Seg Neutrophils # Man 19.8 K/mm3 (1.8-7.7) H 10/06/19 05:36 Band Neutrophils # 0.4 K/mm3 10/06/19 05:36 Lymphocytes # (Manual) 0.4 K/mm3 (1.2-5.4) L 10/06/19 05:36 Abs React Lymphs (Man) 0.0 K/mm3 10/06/19 05:36 Monocytes # (Manual) 1.1 K/mm3 (0.0-0.8) H 10/06/19 05:36 Eosinophils # (Manual) 0.0 K/mm3 (0.0-0.4) 10/06/19 05:36 Basophils # (Manual) 0.0 K/mm3 (0.0-0.1) 10/06/19 05:36 Metamyelocytes # 0.0 K/mm3 10/06/19 05:36 Myelocytes # 0.0 K/mm3 10/06/19 05:36 Promyelocytes # 0.0 K/mm3 10/06/19 05:36 Blast Cells # 0.0 K/mm3 10/06/19 05:36 WBC Morphology Not Reportable 10/06/19 05:36 Hypersegmented Neuts Not Reportable 10/06/19 05:36 Hyposegmented Neuts Not Reportable 10/06/19 05:36 Hypogranular Neuts Not Reportable 10/06/19 05:36 Smudge Cells Not Reportable 10/06/19 05:36 Toxic Granulation Not Reportable 10/06/19 05:36 Toxic Vacuolation Not Reportable 10/06/19 05:36 Dohle Bodies Not Reportable 10/06/19 05:36 Pelger-Huet Anomaly Not Reportable 10/06/19 05:36 Andres Rods Not Reportable 10/06/19 05:36 Platelet Estimate Consistent w auto 10/06/19 05:36 Clumped Platelets Not Reportable 10/06/19 05:36 Plt Clumps, EDTA Not Reportable 10/06/19 05:36 Large Platelets Not Reportable 10/06/19 05:36 Giant Platelets Not Reportable 10/06/19 05:36 Platelet Satelliting Not Reportable 10/06/19 05:36 Plt Morphology Comment Not Reportable 10/06/19 05:36 RBC Morphology Normal 10/06/19 05:36 Dimorphic RBCs Not Reportable 10/06/19 05:36 Polychromasia Not Reportable 10/06/19 05:36 Hypochromasia Not Reportable 10/06/19 05:36 Poikilocytosis Not Reportable 10/06/19 05:36 Anisocytosis Not Reportable 10/06/19 05:36 Microcytosis Not Reportable 10/06/19 05:36 Macrocytosis Not Reportable 10/06/19 05:36 Spherocytes Not Reportable 10/06/19 05:36 Pappenheimer Bodies Not Reportable 10/06/19 05:36 Sickle Cells Not Reportable 10/06/19 05:36 Target Cells Not Reportable 10/06/19 05:36 Tear Drop Cells Not Reportable 10/06/19 05:36 Ovalocytes Not Reportable 10/06/19 05:36 Helmet Cells Not Reportable 10/06/19 05:36 Varghese-[place] Bodies Not Reportable 10/06/19 05:36 [place] Rings Not Reportable 10/06/19 05:36 Bishnu Cells Not Reportable 10/06/19 05:36 Bite Cells Not Reportable 10/06/19 05:36 Crenated Cell Not Reportable 10/06/19 05:36 Elliptocytes Not Reportable 10/06/19 05:36 Acanthocytes (Spur) Not Reportable 10/06/19 05:36 Rouleaux Not Reportable 10/06/19 05:36 Hemoglobin C Crystals Not Reportable 10/06/19 05:36 Schistocytes Not Reportable 10/06/19 05:36 Malaria parasites Not Reportable 10/06/19 05:36 Toni Bodies Not Reportable 10/06/19 05:36 Hem Pathologist Commnt No 10/06/19 05:36 Sodium 137 mmol/L (137-145) 10/07/19 05:54 Potassium 3.8 mmol/L (3.6-5.0) 10/07/19 05:54 Chloride 98.0 mmol/L (98-107) 10/07/19 05:54 Carbon Dioxide 27 mmol/L (22-30) 10/07/19 05:54 Anion Gap 16 mmol/L 10/07/19 05:54 BUN 11 mg/dL (9-20) 10/07/19 05:54 Creatinine 0.8 mg/dL (0.8-1.5) 10/07/19 05:54 Estimated GFR > 60 ml/min 10/07/19 05:54 BUN/Creatinine Ratio 14 % 10/07/19 05:54 Glucose 95 mg/dL (75-100) 10/07/19 05:54 Hemoglobin A1c 5.7 % (4-6) 10/06/19 05:36 Calcium 8.1 mg/dL (8.4-10.2) L 10/07/19 05:54 Total Bilirubin 0.40 mg/dL (0.1-1.2) 10/06/19 05:36 AST 22 units/L (5-40) 10/06/19 05:36 ALT 9 units/L (7-56) 10/06/19 05:36 Alkaline Phosphatase 78 units/L (35-129) 10/06/19 05:36 Total Protein 5.7 g/dL (6.3-8.2) L 10/06/19 05:36 Albumin 2.5 g/dL (3.9-5) L 10/06/19 05:36 Albumin/Globulin Ratio 0.8 % 10/06/19 05:36 Active Medications - Current Medications Current Medications: Generic Name Dose Route Start Last Admin Trade Name Freq PRN Reason Stop Dose Admin Acetaminophen 650 mg 10/05/19 21:22 Tylenol PO Q4H PRN Pain MILD(1-3)/Fever >100.5/ROMANO Albuterol 2.5 mg 10/05/19 21:36 Proventil IH Q4HRT PRN Shortness Of Breath Albuterol/Ipratropium 1 ampul 10/06/19 02:00 10/07/19 13:19 Duoneb *Not For Prn Use* IH 1 ampul Q6HRT VERÓNICA Administration Arformoterol Tartrate 15 mcg 10/06/19 08:30 10/07/19 08:26 Brovana Nebu IH 15 mcg Q12HRT VERÓNICA Administration Budesonide 0.5 mg 10/07/19 12:20 Pulmicort IH Q12HRT VERÓNICA Citalopram Hydrobromide 20 mg 10/06/19 10:00 10/07/19 10:35 Celexa PO 20 mg QDAY VERÓNICA Administration Hydromorphone HCl 0.5 mg 10/05/19 21:22 10/07/19 04:54 Dilaudid IV 0.5 mg Q3H PRN Administration Pain , Severe (7-10) Cefepime HCl 2 gm in 100 mls @ 200 mls/hr 10/05/19 22:00 10/07/19 05:49 Cefepime/Ns 2 Gm/100 Ml IV 200 mls/hr Q8HR VERÓNICA Administration Protocol Ketorolac Tromethamine 30 mg 10/05/19 20:00 10/07/19 08:19 Toradol IV 10/10/19 19:59 30 mg Q6H VERÓNICA Administration Lisinopril 20 mg 10/06/19 10:00 10/07/19 10:35 Zestril PO 20 mg DAILY VERÓNICA Administration Metoprolol Tartrate 100 mg 10/06/19 10:00 10/07/19 10:36 Metoprolol PO 100 mg BID VERÓNICA Administration Ondansetron HCl 4 mg 10/05/19 21:22 Zofran IV Q3H PRN Nausea And Vomiting Oxycodone/Acetaminophen 2 tab 10/06/19 12:26 10/07/19 08:19 Percocet 5/325 PO 2 tab Q6H PRN Administration Pain, Moderate (4-6) Pantoprazole Sodium 40 mg 10/06/19 10:00 10/07/19 10:36 Protonix PO 40 mg BID VERÓNICA Administration Sodium Chloride 10 ml 10/05/19 22:00 10/07/19 10:38 Sodium Chloride Flush Syringe 10 Ml IV 10 ml BID VERÓNICA Administration Sodium Chloride 10 ml 10/05/19 21:22 Sodium Chloride Flush Syringe 10 Ml IV PRN PRN LINE FLUSH
[2019-10-08] MEDS: IPRATROPIUM/ALBUTEROL SULFATE 3 ML AMPUL.NEB IH SCH ×4 (01:53→21:36)
[2019-10-08] MEDS: KETOROLAC 30 MG/1 ML INJ IV SCH ×4 (04:05→20:15)
[2019-10-08] MEDS: CEFEPIME/NS 2 GM/100 ML 2 GM/100 ML BAG IV SCH ×3 (05:02→21:05)
--- NOTE | 2019-10-08 07:51 | Progress Note ---
Assessment and Plan - Patient Problems (1) Dehiscence of closure of fascia, superficial or muscular Current Visit: No Status: Acute Qualifiers: Encounter type: initial encounter Qualified Code(s): T81.32XA - Disruption of internal operation (surgical) wound, not elsewhere classified, initial encounter Plan to address problem: Pt stable. s/p ex lap with closure of abdominal wall and wound vac placement (10/05) - POD#3. Pt slowly improving. His recovery will most likely be slow as he has had 3 major operations in short period of time. The main issue of concern right now is the leukocytosis. He clinically does not show any obvious signs of infection. However, we need to monitor this issue. Rec: 1) Wound vac - Wound care nurse to change today. If patient discharged prior to , will need HH visit for wound vac change this Tuesday. Thereafter, should be seen by HH on Tuesdays and seen in Wound Clinic with me on Fridays. 2) Nutrition - Regular Diet 3) Activity - Needs to ambulate. Discussed with nurse to try and help facilitate walking with the wound VAC. If needed, we will order physical therapy. 4) Pulmonary Toilet - encouraged coughing and deep breathing. He is apprehensive due to the fascial dehiscence occurring with the last coughing bout. I encouraged him to keep the binder on tight and reinforce the abdomen with a pillow. 5) Leukocytosis - if the white count is not improving, we will consider chest x- ray and urinalysis to rule out potential sources of infection. 6) Peripheral Edema - we will discuss with hospitalist if diuretics should be considered. 7) Disposition - once wound VAC is changed and patient is considered medically stable, he is okay for discharge to home from my standpoint. Will follow along. Please call with questions. Time=20min Subjective Date of service: 10/08/19 Patient Reports: Positive: feels better, pain is less, tolerating a regular diet, flatus, no bowel movement, afebrile, other (feels depressed. Wants to go home. No Chest Pain. No urination problems. ). Negative: nausea, vomiting, shortness of breath Objective Vital Signs - 12hr 10/07/19 10/07/19 10/07/19 21:02 22:00 23:38 Temperature 98.2 F Pulse Rate 86 79 Pulse Rate [ 83 Anterior Bilateral Throughout] Respiratory 18 Rate Respiratory 18 Rate [Anterior Bilateral Throughout] Blood Pressure 105/41 89/41 Blood Pressure [Left] O2 Sat by Pulse 93 96 Oximetry 10/07/19 10/08/19 10/08/19 23:39 04:48 04:51 Temperature 98.2 F Pulse Rate 81 79 79 Pulse Rate [ Anterior Bilateral Throughout] Respiratory 20 Rate Respiratory Rate [Anterior Bilateral Throughout] Blood Pressure Blood Pressure 142/61 [Left] O2 Sat by Pulse 95 95 94 Oximetry 10/08/19 10/08/19 06:56 07:35 Temperature 97.4 F L Pulse Rate 92 H Pulse Rate [ Anterior Bilateral Throughout] Respiratory 20 Rate Respiratory Rate [Anterior Bilateral Throughout] Blood Pressure 128/57 Blood Pressure [Left] O2 Sat by Pulse 91 95 Oximetry - General physical appearance no distress, obese, other (looks better. Mildly uncomfortable with coughing. ) - Eyes normal occular movement - Respiratory normal expansion, other (decreased breath sounds bilaterally) - Abdomen soft, tender (minimal), not distended, not guarding, not rigid, other (Wound vac in place - serosang drainage) - Integumentary no rash, no growths, no abnormal pigmentation, other (pitting edema in BLE) - Psychiatric oriented to time, oriented to person, oriented to place, speech is normal, memory intact - Labs 10/07/19 05:54 10/07/19 05:54
[2019-10-08] MEDS: oxyCODONE /ACETAMINOPHEN 5-325MG TAB PO PRN ×2 (08:50→15:40)
[2019-10-08] MEDS: LISINOPRIL 20 MG TAB PO SCH (09:05)
[2019-10-08] MEDS: METOPROLOL TARTRATE 100 MG TAB PO SCH ×2 (09:07→21:05)
[2019-10-08] MEDS: CITALOPRAM 20 MG TAB PO SCH (09:08)
[2019-10-08] MEDS: PANTOPRAZOLE 40 MG TAB PO SCH ×2 (09:10→21:05)
[2019-10-08] MEDS: ARFORMOTEROL 15 MCG/2 ML NEBU IH SCH ×2 (09:24→21:32)
[2019-10-08] MEDS: BUDESONIDE 0.5 MG/2 ML NEBU IH SCH ×2 (09:24→21:33)
--- NOTE | 2019-10-08 17:41 | Progress Note ---
Assessment and Plan - Patient Problems (1) Evisceration of bowel Current Visit: Yes Status: Acute Plan to address problem: Patient status post surgical correction daughter well pain stable. Patient white count did go up to 21. Not sure if this is related. No fever. (2) COPD (chronic obstructive pulmonary disease) Current Visit: Yes Status: Chronic Qualifiers: COPD type: unspecified COPD Qualified Code(s): J44.9 - Chronic obstructive pulmonary disease, unspecified Plan to address problem: Doing much better. Would discontinue continuous pulse ox so patient can become more active walking around. Judgment is debility. (3) HLD (hyperlipidemia) Current Visit: Yes Status: Chronic Qualifiers: Hyperlipidemia type: mixed hyperlipidemia Qualified Code(s): E78.2 - Mixed hyperlipidemia Plan to address problem: Patient lipids stable. Continue statin if needed. (4) HTN (hypertension) Current Visit: Yes Status: Chronic Qualifiers: Hypertension type: essential hypertension Qualified Code(s): I10 - Essential (primary) hypertension Plan to address problem: Patient continues to have optimal control blood pressure. Does have some lower extremity edema that needs to be addressed. (5) COPD (chronic obstructive pulmonary disease) Current Visit: No Status: Acute Qualifiers: COPD type: COPD with acute exacerbation Qualified Code(s): J44.1 - Chronic obstructive pulmonary disease with (acute) exacerbation (6) Lower extremity edema Current Visit: Yes Status: Acute (7) Edema of both lower extremities Current Visit: Yes Status: Acute Plan to address problem: Both lower extremities. Appears to be dependent edema patient has been in bed sits up at the side of bed gravity takes fluid down to the legs. Patient does have +4 pitting edema. We'll treat with low-dose diuretic now. History Interval history: Patient: Well. Sitting on the side of bed. States all is okay besides incisional pain. Patient states ready to go home. Continuous pulse ox has been removed. Patient Hospital course complicated by bilateral lower extremity edema which brought to my attention by the nurse. Hospitalist Physical - Constitutional Vitals: Temp Pulse Resp BP Pulse Ox 98.2 F 96 H 20 150/70 94 10/08/19 15:12 10/08/19 15:12 10/08/19 15:12 10/08/19 15:12 10/08/19 15:12 General appearance: Present: no acute distress, well-nourished - EENT Eyes: Present: PERRL, EOM intact ENT: hearing intact, clear oral mucosa, dentition normal - Neck Neck: Present: supple, normal ROM - Respiratory Respiratory effort: normal - Cardiovascular Rhythm: irregularly irregular Heart Sounds: Present: S1 & S2 - Extremities Extremities: no ischemia, pulses intact, pulses symmetrical, No edema, normal temperature, normal color Extremity abnormal: erythema - Abdominal General gastrointestinal: soft, other (postsurgical changes with binder . Abdomen) - Integumentary Integumentary: Present: clear, warm, dry - Psychiatric Psychiatric: appropriate mood/affect, intact judgment & insight, agitated - Neurologic Neurologic: CNII-XII intact, moves all extremities Results - Labs CBC & Chem 7: 10/07/19 05:54 10/07/19 05:54 Labs: Laboratory Last Values WBC 21.5 K/mm3 (4.5-11.0) H 10/07/19 05:54 RBC 3.55 M/mm3 (3.65-5.03) L 10/07/19 05:54 Hgb 10.9 gm/dl (11.8-15.2) L 10/07/19 05:54 Hct 32.7 % (35.5-45.6) L 10/07/19 05:54 MCV 92 fl (84-94) 10/07/19 05:54 MCH 31 pg (28-32) 10/07/19 05:54 MCHC 33 % (32-34) 10/07/19 05:54 RDW 14.4 % (13.2-15.2) 10/07/19 05:54 Plt Count 297 K/mm3 (140-440) 10/07/19 05:54 Add Manual Diff Complete 10/06/19 05:36 Total Counted 100 10/06/19 05:36 Seg Neutrophils % [employer] 10/06/19 05:36 Seg Neuts % (Manual) 91.0 % (40.0-70.0) H 10/06/19 05:36 Band Neutrophils % 2.0 % 10/06/19 05:36 Lymphocytes % (Manual) 2.0 % (13.4-35.0) L 10/06/19 05:36 Reactive Lymphs % (Man) 0 % 10/06/19 05:36 Monocytes % (Manual) 5.0 % (0.0-7.3) 10/06/19 05:36 Eosinophils % (Manual) 0 % (0.0-4.3) 10/06/19 05:36 Basophils % (Manual) 0 % (0.0-1.8) 10/06/19 05:36 Metamyelocytes % 0 % 10/06/19 05:36 Myelocytes % 0 % 10/06/19 05:36 Promyelocytes % 0 % 10/06/19 05:36 Blast Cells % 0 % 10/06/19 05:36 Nucleated RBC % Not Reportable 10/06/19 05:36 Seg Neutrophils # Man 19.8 K/mm3 (1.8-7.7) H 10/06/19 05:36 Band Neutrophils # 0.4 K/mm3 10/06/19 05:36 Lymphocytes # (Manual) 0.4 K/mm3 (1.2-5.4) L 10/06/19 05:36 Abs React Lymphs (Man) 0.0 K/mm3 10/06/19 05:36 Monocytes # (Manual) 1.1 K/mm3 (0.0-0.8) H 10/06/19 05:36 Eosinophils # (Manual) 0.0 K/mm3 (0.0-0.4) 10/06/19 05:36 Basophils # (Manual) 0.0 K/mm3 (0.0-0.1) 10/06/19 05:36 Metamyelocytes # 0.0 K/mm3 10/06/19 05:36 Myelocytes # 0.0 K/mm3 10/06/19 05:36 Promyelocytes # 0.0 K/mm3 10/06/19 05:36 Blast Cells # 0.0 K/mm3 10/06/19 05:36 WBC Morphology Not Reportable 10/06/19 05:36 Hypersegmented Neuts Not Reportable 10/06/19 05:36 Hyposegmented Neuts Not Reportable 10/06/19 05:36 Hypogranular Neuts Not Reportable 10/06/19 05:36 Smudge Cells Not Reportable 10/06/19 05:36 Toxic Granulation Not Reportable 10/06/19 05:36 Toxic Vacuolation Not Reportable 10/06/19 05:36 Dohle Bodies Not Reportable 10/06/19 05:36 Pelger-Huet Anomaly Not Reportable 10/06/19 05:36 Andres Rods Not Reportable 10/06/19 05:36 Platelet Estimate Consistent w auto 10/06/19 05:36 Clumped Platelets Not Reportable 10/06/19 05:36 Plt Clumps, EDTA Not Reportable 10/06/19 05:36 Large Platelets Not Reportable 10/06/19 05:36 Giant Platelets Not Reportable 10/06/19 05:36 Platelet Satelliting Not Reportable 10/06/19 05:36 Plt Morphology Comment Not Reportable 10/06/19 05:36 RBC Morphology Normal 10/06/19 05:36 Dimorphic RBCs Not Reportable 10/06/19 05:36 Polychromasia Not Reportable 10/06/19 05:36 Hypochromasia Not Reportable 10/06/19 05:36 Poikilocytosis Not Reportable 10/06/19 05:36 Anisocytosis Not Reportable 10/06/19 05:36 Microcytosis Not Reportable 10/06/19 05:36 Macrocytosis Not Reportable 10/06/19 05:36 Spherocytes Not Reportable 10/06/19 05:36 Pappenheimer Bodies Not Reportable 10/06/19 05:36 Sickle Cells Not Reportable 10/06/19 05:36 Target Cells Not Reportable 10/06/19 05:36 Tear Drop Cells Not Reportable 10/06/19 05:36 Ovalocytes Not Reportable 10/06/19 05:36 Helmet Cells Not Reportable 10/06/19 05:36 [place] Bodies Not Reportable 10/06/19 05:36 [place] Rings Not Reportable 10/06/19 05:36 [place] Cells Not Reportable 10/06/19 05:36 Bite Cells Not Reportable 10/06/19 05:36 Crenated Cell Not Reportable 10/06/19 05:36 Elliptocytes Not Reportable 10/06/19 05:36 Acanthocytes (Spur) Not Reportable 10/06/19 05:36 Rouleaux Not Reportable 10/06/19 05:36 Hemoglobin C Crystals Not Reportable 10/06/19 05:36 Schistocytes Not Reportable 10/06/19 05:36 Malaria parasites Not Reportable 10/06/19 05:36 Toni Bodies Not Reportable 10/06/19 05:36 Hem Pathologist Commnt No 10/06/19 05:36 Sodium 137 mmol/L (137-145) 10/07/19 05:54 Potassium 3.8 mmol/L (3.6-5.0) 10/07/19 05:54 Chloride 98.0 mmol/L (98-107) 10/07/19 05:54 Carbon Dioxide 27 mmol/L (22-30) 10/07/19 05:54 Anion Gap 16 mmol/L 10/07/19 05:54 BUN 11 mg/dL (9-20) 10/07/19 05:54 Creatinine 0.8 mg/dL (0.8-1.5) 10/07/19 05:54 Estimated GFR > 60 ml/min 10/07/19 05:54 BUN/Creatinine Ratio 14 % 10/07/19 05:54 Glucose 95 mg/dL (75-100) 10/07/19 05:54 Hemoglobin A1c 5.7 % (4-6) 10/06/19 05:36 Calcium 8.1 mg/dL (8.4-10.2) L 10/07/19 05:54 Total Bilirubin 0.40 mg/dL (0.1-1.2) 10/06/19 05:36 AST 22 units/L (5-40) 10/06/19 05:36 ALT 9 units/L (7-56) 10/06/19 05:36 Alkaline Phosphatase 78 units/L (35-129) 10/06/19 05:36 Total Protein 5.7 g/dL (6.3-8.2) L 10/06/19 05:36 Albumin 2.5 g/dL (3.9-5) L 10/06/19 05:36 Albumin/Globulin Ratio 0.8 % 10/06/19 05:36 Active Medications - Current Medications Current Medications: Generic Name Dose Route Start Last Admin Trade Name Freq PRN Reason Stop Dose Admin Acetaminophen 650 mg 10/05/19 21:22 Tylenol PO Q4H PRN Pain MILD(1-3)/Fever >100.5/ROMANO Albuterol 2.5 mg 10/05/19 21:36 Proventil IH Q4HRT PRN Shortness Of Breath Albuterol/Ipratropium 1 ampul 10/06/19 02:00 10/08/19 14:18 Duoneb *Not For Prn Use* IH 1 ampul Q6HRT VERÓNICA Administration Arformoterol Tartrate 15 mcg 10/06/19 08:30 10/08/19 09:24 Brovana Nebu IH 15 mcg Q12HRT VERÓNICA Administration Budesonide 0.5 mg 10/07/19 12:20 10/08/19 09:24 Pulmicort IH 0.5 mg Q12HRT VERÓNICA Administration Citalopram Hydrobromide 20 mg 10/06/19 10:00 10/08/19 09:08 Celexa PO 20 mg QDAY VERÓNICA Administration Hydromorphone HCl 0.5 mg 10/05/19 21:22 10/07/19 04:54 Dilaudid IV 0.5 mg Q3H PRN Administration Pain , Severe (7-10) Cefepime HCl 2 gm in 100 mls @ 200 mls/hr 10/05/19 22:00 10/08/19 15:40 Cefepime/Ns 2 Gm/100 Ml IV 200 mls/hr Q8HR VERÓNICA Administration Protocol Ketorolac Tromethamine 30 mg 10/05/19 20:00 10/08/19 15:39 Toradol IV 10/10/19 19:59 30 mg Q6H VERÓNICA Administration Lisinopril 20 mg 10/06/19 10:00 10/08/19 09:05 Zestril PO 20 mg DAILY VERÓNICA Administration Metoprolol Tartrate 100 mg 10/06/19 10:00 10/08/19 09:07 Metoprolol PO 100 mg BID VERÓNICA Administration Ondansetron HCl 4 mg 10/05/19 21:22 Zofran IV Q3H PRN Nausea And Vomiting Oxycodone/Acetaminophen 2 tab 10/06/19 12:26 10/08/19 15:40 Percocet 5/325 PO 2 tab Q6H PRN Administration Pain, Moderate (4-6) Pantoprazole Sodium 40 mg 10/06/19 10:00 10/08/19 09:10 Protonix PO 40 mg BID VERÓNICA Administration Sodium Chloride 10 ml 10/05/19 22:00 10/08/19 09:04 Sodium Chloride Flush Syringe 10 Ml IV 10 ml BID VERÓNICA Administration Sodium Chloride 10 ml 10/05/19 21:22 Sodium Chloride Flush Syringe 10 Ml IV PRN PRN LINE FLUSH Nutrition/Malnutrition Assess - Dietary Evaluation Nutrition/Malnutrition Findings: Nutrition Notes Start: 10/08/19 11:36 Freq: Status: Active Protocol: Document 10/08/19 11:36 LP (Rec: 10/08/19 11:41 LP [id number]) Nutrition Notes Need for Assessment generated from: MD Order Initial or Follow up Assessment Current Diagnosis COPD,Hypertension Other Pertinent Diagnosis AMI, Abdominal Fascial dishiscence S/P exp lap Current Diet cardiac Labs/Tests Reviewed Pertinent Medications Reviewed Height 6 ft Weight 127.006 kg [place] Body Weight (kg) 80.90 BMI 38.0 Weight Status Morbidly Obese Subjective/Other Information Consult for malnutrition. Pt states eating well [employer] and now . Pt consumed 100% of breakfast this AM. Pt denies wt changes and there are no physical signs of malnutrition . Pt denies need for more food or supplement for protein. Burn Absent Trauma Absent GI Symptoms None Minimum of two criteria No physical signs of malnutrition #1 Nutrition Diagnosis Increased nutrient needs ( specify in comment below) Comments: Protein Etiology Sx As Evidenced by Signs and Symptoms Pt with multiple sx and exp lap Is patient on ventilator? No Is Patient Ambulatory and/or Out of Bed Yes REE-([facility]-ambulatory/OOB) [ 6609.478 [id number]] Kcal/Kg value to use for calculation 15 Approximate Energy Requirements Using 1905 kcal/Kg Calculation Used for Recommendations Kcal/kg Additional Notes Protein needs are Nutrition Intervention Change Diet Order: Continue cardiac Goal #1 Continue meeting 80% of kcal or protein needs Anticipated Discharge Needs: Cardiac diet Revisit per MD consult or patient Sign Off request:
[2019-10-08] MEDS ORDERED: POLYETHYLENE GLYCOL 3350 17 GM POWDER PO PRN (20:05)
[2019-10-08] MEDS: HYDROmorphone 1 MG/1 ML INJ IV PRN (20:10)
[2019-10-08] MEDS: FUROSEMIDE 20 MG/2 ML INJ IV SCH (20:16)
[2019-10-08] MEDS: DOCUSATE SODIUM 100 MG CAP PO SCH (21:05)
[2019-10-09] MEDS: oxyCODONE /ACETAMINOPHEN 5-325MG TAB PO PRN ×2 (00:06→20:37)
[2019-10-09] MEDS: IPRATROPIUM/ALBUTEROL SULFATE 3 ML AMPUL.NEB IH SCH ×4 (03:22→20:50)
[2019-10-09] MEDS: KETOROLAC 30 MG/1 ML INJ IV SCH ×3 (04:07→13:35)
[2019-10-09] MEDS: FUROSEMIDE 20 MG/2 ML INJ IV SCH (05:06)
[2019-10-09] MEDS: CEFEPIME/NS 2 GM/100 ML 2 GM/100 ML BAG IV SCH ×3 (05:11→21:25)
[2019-10-09] MEDS ORDERED: SODIUM CHLORIDE 0.9% 250ML 250 ML ONE (05:22)
[2019-10-09] MEDS: HYDROmorphone 1 MG/1 ML INJ IV PRN ×3 (05:38→15:09)
[2019-10-09] MEDS ORDERED: SODIUM CHLORIDE 0.9% 250 ML IVPB IV ONE (05:45)
--- NOTE | 2019-10-09 08:26 | XRay Report ---
CHEST 2 VIEWS INDICATION: chest pain. COMPARISON: CT chest dated 08/22/2019. CT abdomen and pelvis dated 09/27/2019. AP chest dated 08/12/20 18 FINDINGS: Support devices: None. Heart: Within normal limits. Lungs/pleura: Partial atelectasis of the right lower lobe is suspected. Otherwise the lungs are clear . No significant pleural effusion or pneumothorax. Additional findings: There appears to be ill-defined gas overlying the liver shadow. Although this ma y represent colonic interposition, free air underneath the right hemidiaphragm cannot be excluded. IMPRESSION: Partial atelectasis in the right lower lobe. Question free air or colonic interposition beneath the right hemidiaphragm. Pneumoperitoneum was note d on the recent CT abdomen and pelvis dated 09/27/2019. Please correlate with the patient's clinical presentation and consider further evaluation of the abdomen with CT preferably with IV and oral contr ast. Signer Name: Skinny Jacinto Jr, MD Signed: 10/09/2019 8:21 AM Workstation Name: [id number]
[2019-10-09] MEDS: BUDESONIDE 0.5 MG/2 ML NEBU IH SCH ×2 (09:29→20:49)
[2019-10-09] MEDS: ARFORMOTEROL 15 MCG/2 ML NEBU IH SCH ×2 (09:29→20:50)
[2019-10-09] MEDS: DOCUSATE SODIUM 100 MG CAP PO SCH ×3 (10:32→21:25)
[2019-10-09] MEDS: PSYLLIUM SEED (WITH SUGAR) 3.4 GM PACKET PO SCH (10:32)
[2019-10-09] MEDS: METOPROLOL TARTRATE 100 MG TAB PO SCH ×2 (10:32→21:30)
[2019-10-09] MEDS: CITALOPRAM 20 MG TAB PO SCH ×2 (10:32→16:03)
[2019-10-09] MEDS: PANTOPRAZOLE 40 MG TAB PO SCH ×3 (10:33→21:25)
[2019-10-09] MEDS: LISINOPRIL 20 MG TAB PO SCH (10:34)
--- NOTE | 2019-10-09 10:35 | Progress Note ---
Assessment and Plan - Patient Problems (1) Dehiscence of closure of fascia, superficial or muscular Current Visit: No Status: Acute Qualifiers: Encounter type: initial encounter Qualified Code(s): T81.32XA - Disruption of internal operation (surgical) wound, not elsewhere classified, initial encounter Plan to address problem: Pt stable. s/p ex lap with closure of abdominal wall and wound vac placement (10/05) - POD#4. Had confusion this morning - now resolved. Was having left sided chest pain - resolved now. CXR showed free air under the right hemidiaphragm. Will check CT. Pt does have focal tenderness on the right side. Rec: 1) Wound vac - Wound care nurse to change today. If patient discharged prior to , will need HH visit for wound vac change this Tuesday. Thereafter, sh ould be seen by HH on Tuesdays and seen in Wound Clinic with me on Fridays. 2) Nutrition - Regular Diet 3) Activity - Needs to ambulate. Discussed with nurse to try and help facilitate walking with the wound VAC. If needed, we will order physical therapy. 4) Pulmonary Toilet - encouraged coughing and deep breathing. He is apprehensive due to the fascial dehiscence occurring with the last coughing bout. I encouraged him to keep the binder on tight and reinforce the abdomen with a pillow. 5) Leukocytosis - CBC pending today. CXR did not show any infection. Will check urine if WBC still elevated and CT does not show a source. 6) Peripheral Edema - lasix given yesterday with minimal result Will follow along. Please call with questions. Time=15min Subjective Date of service: 10/09/19 Patient Reports: Positive: tolerating liquids well (drinking lots of water. ), tolerating a regular diet (poor appetite), flatus, no bowel movement, afebrile, other (feels bloated. Feels like he needs to have BM. ). Negative: nausea, vomiting Objective Vital Signs - 12hr 10/09/19 10/09/19 10/09/19 01:57 05:29 07:35 Temperature 98.1 F 97.6 F 97.3 F L Pulse Rate 98 H 88 90 Pulse Rate [ Anterior Bilateral Throughout] Respiratory 18 16 24 Rate Respiratory Rate [Anterior Bilateral Throughout] Blood Pressure 85/48 83/53 Blood Pressure 101/63 [Left] O2 Sat by Pulse 96 95 83 L Oximetry 10/09/19 10/09/19 10/09/19 09:29 09:43 09:44 Temperature Pulse Rate Pulse Rate [ 93 H Anterior Bilateral Throughout] Respiratory Rate Respiratory 22 Rate [Anterior Bilateral Throughout] Blood Pressure Blood Pressure [Left] O2 Sat by Pulse 86 93 Oximetry - General physical appearance no distress, no pain, obese, other (Alert. ) - Eyes normal occular movement - Respiratory normal respiratory effort - Abdomen soft, tender (on right side primarily. No diffuse peritonitis. No significant tenderness on left or pelvis), bowel sounds hypoactive, not guarding, not rigid, other (wound vac in place. ) Hernia: none - Integumentary no rash, no growths, no abnormal pigmentation - Psychiatric oriented to time, oriented to person, oriented to place, speech is normal - Labs 10/07/19 05:54 10/07/19 05:54 - Imaging Chest x-ray: report reviewed, image reviewed
[2019-10-09 11:22] LABS: Hemoglobin 12.3 gm/dl (11.8-15.2); Mean Corpuscular HGB Conc 33 % (32-34); Mean Corpuscular Volume 92 fl (84-94); Platelet Count 498 K/mm3 (140-440); Red Blood Count 4.03 M/mm3 (3.65-5.03); Red Cell Distribution Width 14.9 % (13.2-15.2)
[2019-10-09 11:42] LABS: Calcium 8.7 mg/dL (8.4-10.2)
[2019-10-09 12:20] LABS: Band Neutrophils # (Manual) 0.2 K/mm3; Basophils % (Manual) 0 % (0.0-1.8); Eosinophils % (Manual) 0 % (0.0-4.3); Total Cells Counted 100
[2019-10-09 12:21] LABS: Large Platelets Rare; Platelet Estimate Consistent w Auto; RBC Morphology Normal
--- NOTE | 2019-10-09 12:50 | Progress Note ---
Assessment and Plan Assessment and plan: - Patient Problems (1) Dehiscence of closure of fascia, superficial or muscular Current Visit: Yes Status: Acute Plan to address problem: Patient status post surgical correction. Patient white count did go up to 21. Not sure if this is related. No fever. wound vac is in place concern of free air, although this can be from the recent surgery, will obtain IR (2) Atypical chest pain: cardiac enzymes negative. obtain Cardiology consult (3)Pulmonary consolidation Current Visit: Yes Status: Chronic Qualifiers: COPD type: unspecified COPD Qualified Code(s): J44.9 - Chronic obstructive pulmonary disease, unspecified Plan to address problem: Doing much better. Would discontinue continuous pulse ox so patient can become more active walking around. Judgment is debility. Pulmonary consolidation-will obtain Pulmonary consult Continue abx Encourage compliance with incentive spirometer (4) HLD (hyperlipidemia) Current Visit: Yes Status: Chronic Qualifiers: Hyperlipidemia type: mixed hyperlipidemia Qualified Code(s): E78.2 - Mixed hyperlipidemia Plan to address problem: Patient lipids stable. Continue statin if needed. (5) HTN (hypertension) Current Visit: Yes Status: Chronic Qualifiers: Hypertension type: essential hypertension Qualified Code(s): I10 - Essential (primary) hypertension Plan to address problem: Patient continues to have optimal control blood pressure. Does have some lower extremity edema that needs to be addressed. (6) COPD (chronic obstructive pulmonary disease) Current Visit: No Status: Acute Qualifiers: COPD type: COPD with acute exacerbation Qualified Code(s): J44.1 - Chronic obstructive pulmonary disease with (acute) exacerbation (7) Lower extremity edema Current Visit: Yes Status: Acute (8) Edema of both lower extremities Current Visit: Yes Status: Acute Plan to address problem: Both lower extremities. Appears to be dependent edema patient has been in bed sits up at the side of bed gravity takes fluid down to the legs. Patient does have +4 pitting edema. We'll treat with low-dose diuretic now. Hypoalbuminemia secondary to surgery SIRS without organ dysfunction Acute blood loss anemia- expected: Monitor Peripheral Edema - lasix given yesterday with minimal result History Interval history: Patient seen and examined, on venturi mask this am during exam, stated he felt short of breath. Later the staff called and notified me of paints complain of pleuritic chest pain. Current review of enzymes are negative. still mild inc isional pain 2/10 in intensity Hospitalist Physical - Physical exam Narrative exam: General appearance: Present: mild acute distress on ventimask , well-nourished - EENT Eyes: Present: PERRL, EOM intact ENT: hearing intact, clear oral mucosa, dentition normal - Neck Neck: Present: supple, normal ROM - Respiratory Respiratory effort: normal - Cardiovascular Rhythm: irregularly irregular Heart Sounds: Present: S1 & S2 - Extremities Extremities: no ischemia, pulses intact, pulses symmetrical, No edema, normal temperature, normal color Extremity abnormal: erythema - Abdominal General gastrointestinal: soft, other (postsurgical changes with binder . mild tender on right upper quandrant. Binder in place) - Integumentary Integumentary: Present: clear, warm, dry - Psychiatric Psychiatric: appropriate mood/affect, intact judgment & insight, agitated - Neurologic Neurologic: CNII-XII intact, moves all extremities - Constitutional Vitals: Temp Pulse Resp BP Pulse Ox 97.3 F L 88 22 108/71 93 10/09/19 07:35 10/09/19 10:34 10/09/19 09:29 10/09/19 10:34 10/09/19 09:44 General appearance: Present: no acute distress, well-nourished Results - Labs CBC & Chem 7: 10/09/19 10:52 10/09/19 10:52 Labs: Laboratory Last Values WBC 16.6 K/mm3 (4.5-11.0) H 10/09/19 10:52 RBC 4.03 M/mm3 (3.65-5.03) 10/09/19 10:52 Hgb 12.3 gm/dl (11.8-15.2) 10/09/19 10:52 Hct 37.0 % (35.5-45.6) 10/09/19 10:52 MCV 92 fl (84-94) 10/09/19 10:52 MCH 31 pg (28-32) 10/09/19 10:52 MCHC 33 % (32-34) 10/09/19 10:52 RDW 14.9 % (13.2-15.2) 10/09/19 10:52 Plt Count 498 K/mm3 (140-440) H 10/09/19 10:52 Add Manual Diff Complete 10/09/19 10:52 Total Counted 100 10/09/19 10:52 Seg Neutrophils % Sound Tester 10/09/19 10:52 Seg Neuts % (Manual) 93.0 % (40.0-70.0) H 10/09/19 10:52 Band Neutrophils % 1.0 % 10/09/19 10:52 Lymphocytes % (Manual) 5.0 % (13.4-35.0) L 10/09/19 10:52 Reactive Lymphs % (Man) 0 % 10/09/19 10:52 Monocytes % (Manual) 1.0 % (0.0-7.3) 10/09/19 10:52 Eosinophils % (Manual) 0 % (0.0-4.3) 10/09/19 10:52 Basophils % (Manual) 0 % (0.0-1.8) 10/09/19 10:52 Metamyelocytes % 0 % 10/09/19 10:52 Myelocytes % 0 % 10/09/19 10:52 Promyelocytes % 0 % 10/09/19 10:52 Blast Cells % 0 % 10/09/19 10:52 Nucleated RBC % Not Reportable 10/09/19 10:52 Seg Neutrophils # Man 15.4 K/mm3 (1.8-7.7) H 10/09/19 10:52 Band Neutrophils # 0.2 K/mm3 10/09/19 10:52 Lymphocytes # (Manual) 0.8 K/mm3 (1.2-5.4) L 10/09/19 10:52 Abs React Lymphs (Man) 0.0 K/mm3 10/09/19 10:52 Monocytes # (Manual) 0.2 K/mm3 (0.0-0.8) 10/09/19 10:52 Eosinophils # (Manual) 0.0 K/mm3 (0.0-0.4) 10/09/19 10:52 Basophils # (Manual) 0.0 K/mm3 (0.0-0.1) 10/09/19 10:52 Metamyelocytes # 0.0 K/mm3 10/09/19 10:52 Myelocytes # 0.0 K/mm3 10/09/19 10:52 Promyelocytes # 0.0 K/mm3 10/09/19 10:52 Blast Cells # 0.0 K/mm3 10/09/19 10:52 WBC Morphology Not Reportable 10/09/19 10:52 Hypersegmented Neuts Not Reportable 10/09/19 10:52 Hyposegmented Neuts Not Reportable 10/09/19 10:52 Hypogranular Neuts Not Reportable 10/09/19 10:52 Smudge Cells Not Reportable 10/09/19 10:52 Toxic Granulation Not Reportable 10/09/19 10:52 Toxic Vacuolation Not Reportable 10/09/19 10:52 Dohle Bodies Not Reportable 10/09/19 10:52 Pelger-Huet Anomaly Not Reportable 10/09/19 10:52 Andres Rods Not Reportable 10/09/19 10:52 Platelet Estimate Consistent w auto 10/09/19 10:52 Clumped Platelets Not Reportable 10/09/19 10:52 Plt Clumps, EDTA Not Reportable 10/09/19 10:52 Large Platelets Rare 10/09/19 10:52 Giant Platelets Not Reportable 10/09/19 10:52 Platelet Satelliting Not Reportable 10/09/19 10:52 Plt Morphology Comment Not Reportable 10/09/19 10:52 RBC Morphology Normal 10/09/19 10:52 Dimorphic RBCs Not Reportable 10/09/19 10:52 Polychromasia Not Reportable 10/09/19 10:52 Hypochromasia Not Reportable 10/09/19 10:52 Poikilocytosis Not Reportable 10/09/19 10:52 Anisocytosis Not Reportable 10/09/19 10:52 Microcytosis Not Reportable 10/09/19 10:52 Macrocytosis Not Reportable 10/09/19 10:52 Spherocytes Not Reportable 10/09/19 10:52 Pappenheimer Bodies Not Reportable 10/09/19 10:52 Sickle Cells Not Reportable 10/09/19 10:52 Target Cells Not Reportable 10/09/19 10:52 Tear Drop Cells Not Reportable 10/09/19 10:52 Ovalocytes Not Reportable 10/09/19 10:52 Helmet Cells Not Reportable 10/09/19 10:52 Varghese-Bowbells Bodies Not Reportable 10/09/19 10:52 Solgohachia Rings Not Reportable 10/09/19 10:52 Bishnu Cells Not Reportable 10/09/19 10:52 Bite Cells Not Reportable 10/09/19 10:52 Crenated Cell Not Reportable 10/09/19 10:52 Elliptocytes Not Reportable 10/09/19 10:52 Acanthocytes (Spur) Not Reportable 10/09/19 10:52 Rouleaux Not Reportable 10/09/19 10:52 Hemoglobin C Crystals Not Reportable 10/09/19 10:52 Schistocytes Not Reportable 10/09/19 10:52 Malaria parasites Not Reportable 10/09/19 10:52 Toni Bodies Not Reportable 10/09/19 10:52 Hem Pathologist Commnt No 10/09/19 10:52 Sodium 137 mmol/L (137-145) 10/09/19 10:52 Potassium 4.7 mmol/L (3.6-5.0) D 10/09/19 10:52 Chloride 97.9 mmol/L (98-107) L 10/09/19 10:52 Carbon Dioxide 20 mmol/L (22-30) L D 10/09/19 10:52 Anion Gap 24 mmol/L 10/09/19 10:52 BUN 23 mg/dL (9-20) H 10/09/19 10:52 Creatinine 1.7 mg/dL (0.8-1.5) H D 10/09/19 10:52 Estimated GFR 42 ml/min 10/09/19 10:52 BUN/Creatinine Ratio 14 % 10/09/19 10:52 Glucose 109 mg/dL (75-100) H 10/09/19 10:52 POC Glucose 103 (70-105) 10/09/19 07:40 Hemoglobin A1c 5.7 % (4-6) 10/06/19 05:36 Calcium 8.7 mg/dL (8.4-10.2) 10/09/19 10:52 Total Bilirubin 0.40 mg/dL (0.1-1.2) 10/06/19 05:36 AST 22 units/L (5-40) 10/06/19 05:36 ALT 9 units/L (7-56) 10/06/19 05:36 Alkaline Phosphatase 78 units/L (35-129) 10/06/19 05:36 Troponin T < 0.010 ng/mL (0.00-0.029) 10/09/19 05:02 Total Protein 5.7 g/dL (6.3-8.2) L 10/06/19 05:36 Albumin 2.5 g/dL (3.9-5) L 10/06/19 05:36 Albumin/Globulin Ratio 0.8 % 10/06/19 05:36 Active Medications - Current Medications Current Medications: Generic Name Dose Route Start Last Admin Trade Name Freq PRN Reason Stop Dose Admin Acetaminophen 650 mg 10/05/19 21:22 10/09/19 05:09 Tylenol PO 650 mg Q4H PRN Administration Pain MILD(1-3)/Fever >100.5/ROMANO Albuterol 2.5 mg 10/05/19 21:36 Proventil IH Q4HRT PRN Shortness Of Breath Albuterol/Ipratropium 1 ampul 10/06/19 02:00 10/09/19 09:29 Duoneb *Not For Prn Use* IH Not Given Q6HRT VERÓNICA Arformoterol Tartrate 15 mcg 10/06/19 08:30 10/09/19 09:29 Brovana Nebu IH 15 mcg Q12HRT VERÓNICA Administration Benzonatate 100 mg 10/09/19 14:00 Tessalon Perles PO Q8HR VERÓNICA Budesonide 0.5 mg 10/07/19 12:20 10/09/19 09:29 Pulmicort IH 0.5 mg Q12HRT VERÓNICA Administration Citalopram Hydrobromide 20 mg 10/06/19 10:00 10/09/19 10:32 Celexa PO Not Given QDAY VERÓNICA Docusate Sodium 100 mg 10/08/19 22:00 10/09/19 10:32 Colace PO Not Given BID VERÓNICA Furosemide 20 mg 10/08/19 18:30 10/09/19 05:06 Lasix IV Not Given 0600,1800 VERÓNICA Hydromorphone HCl 0.5 mg 10/05/19 21:22 10/09/19 10:27 Dilaudid IV 0.5 mg Q3H PRN Administration Pain , Severe (7-10) Cefepime HCl 2 gm in 100 mls @ 200 mls/hr 10/05/19 22:00 10/09/19 05:11 Cefepime/Ns 2 Gm/100 Ml IV 200 mls/hr Q8HR VERÓNICA Administration Protocol Ketorolac Tromethamine 30 mg 10/05/19 20:00 10/09/19 10:25 Toradol IV 10/10/19 19:59 Not Given Q6H VERÓNICA Lisinopril 20 mg 10/06/19 10:00 10/09/19 10:34 Zestril PO Not Given DAILY VERÓNICA Metoprolol Tartrate 100 mg 10/06/19 10:00 10/09/19 10:32 Metoprolol PO Not Given BID [facility] Montelukast Sodium 10 mg 10/09/19 22:00 Singulair PO QHS [facility] Ondansetron HCl 4 mg 10/05/19 21:22 Zofran IV Q3H PRN Nausea And Vomiting Oxycodone/Acetaminophen 2 tab 10/06/19 12:26 10/09/19 00:06 Percocet 5/325 PO 2 tab Q6H PRN Administration Pain, Moderate (4-6) Pantoprazole Sodium 40 mg 10/06/19 10:00 10/09/19 10:33 Protonix PO Not Given BID [facility] Polyethylene Glycol 17 gm 10/08/19 20:05 10/08/19 21:05 Miralax 3350 PO 17 gm BID PRN Administration Constipation Psyllium Hydrophilic Mucilloid 1 each 10/09/19 10:00 10/09/19 10:32 Metamucil PO Not Given QDAY [facility] Sodium Chloride 10 ml 10/05/19 22:00 10/09/19 10:34 Sodium Chloride Flush Syringe 10 Ml IV 10 ml BID VERÓNICA Administration Sodium Chloride 10 ml 10/05/19 21:22 Sodium Chloride Flush Syringe 10 Ml IV PRN PRN LINE FLUSH Nutrition/Malnutrition Assess - Dietary Evaluation Nutrition/Malnutrition Findings: Nutrition Notes Start: 10/08/19 11:36 Freq: Status: Active Protocol: Document 10/08/19 11:36 LP (Rec: 10/08/19 11:41 LP [id number]) Nutrition Notes Need for Assessment generated from: MD Order Initial or Follow up Assessment Current Diagnosis COPD,Hypertension Other Pertinent Diagnosis AMI, Abdominal Fascial dishiscence S/P exp lap Current Diet cardiac Labs/Tests Reviewed Pertinent Medications Reviewed Height 6 ft Weight 127.006 kg [place] Body Weight (kg) 80.90 BMI 38.0 Weight Status Morbidly Obese Subjective/Other Information Consult for malnutrition. 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 Pt consumed 100% of breakfast this AM. Pt denies wt changes and there are no physical signs of malnutrition . Pt denies need for more food or supplement for protein. Burn Absent Trauma Absent GI Symptoms None Minimum of two criteria No physical signs of malnutrition #1 Nutrition Diagnosis Increased nutrient needs ( specify in comment below) Comments: Protein Etiology Sx As Evidenced by Signs and Symptoms Pt with multiple sx and exp lap Is patient on ventilator? No Is Patient Ambulatory and/or Out of Bed Yes REE-([place]-St. Jeor-ambulatory/OOB) [ 2779.478 NUTR.MSJOOB] Kcal/Kg value to use for calculation 15 Approximate Energy Requirements Using 1905 kcal/Kg Calculation Used for Recommendations Kcal/kg Additional Notes Protein needs are Nutrition Intervention Change Diet Order: Continue cardiac Goal #1 Continue meeting 80% of kcal or protein needs Anticipated Discharge Needs: Cardiac diet Revisit per MD consult or patient Sign Off request:
--- NOTE | 2019-10-09 15:21 | Cat Scan Report ---
CT ABDOMEN AND PELVIS WITHOUT CONTRAST HISTORY: Free air seen on chest x-ray. COMPARISON: CT abdomen pelvis without contrast dated 09/27/2019 TECHNIQUE: Helical CT images of the abdomen and pelvis were obtained following oral contrast. [place] l and coronal reformatted images were reviewed. All CT scans at this location are performed using CT dose reduction for ALARA by means of automated exposure control. CONTRAST: 100 ml of intravenous contrast administered. FINDINGS: Abdomen/pelvis: An abdominal drainage tube has been removed since the previous examination. Mild to moderate fluid and free air are identified in the abdomen on today's exam. Visceral perforation canno t be excluded. The bowel loops are normal caliber and partially opacified with oral contrast. No obvi ous spillage of the oral contrast is appreciated. Interval surgical changes and suture line is noted in the descending colon which is new since the previous exam. Dehiscence at the suture line should be considered. The liver, biliary system, pancreas, spleen, adrenal glands and right kidney are unremarkable. Atroph ic left kidney is again noted. The bladder is partially empty but unremarkable. Lungs/bones: Small layering left pleural effusion and bibasilar atelectasis have developed. Normal h eart size. Thoracolumbar spondylosis is noted. IMPRESSION: Free air and free fluid have developed in the abdomen as outlined above. Visceral perforation cannot be excluded. Small left pleural effusion and bibasilar atelectasis. Atrophic left kidney. Signer Name: Siknny Jacinto Jr, MD Signed: 10/09/2019 3:17 PM Workstation Name: [id number]
--- NOTE | 2019-10-09 15:23 | Cat Scan Report ---
CT CHEST ABDOMEN AND PELVIS WITHOUT CONTRAST INDICATION / CLINICAL INFORMATION: FREE AIR. TECHNIQUE: Axial CT images were obtained through the chest abdomen and pelvis without IV contrast. All CT scan s at this location are performed using CT dose reduction for ALARA by means of automated exposure con trol. COMPARISON: CT abdomen pelvis dated September 27 2019 FINDINGS: HEART: No significant abnormality. THORACIC AORTA: No significant abnormality. MEDIASTINUM and NERSI: No significant abnormality. LUNGS: Dense consolidation is present left lower lobe Patchy parenchymal changes present involving th e lingula aspect left upper lobe and right middle lobe. PLEURA: Left pleural effusion present No pneumothorax LIVER: No significant abnormality. GALLBLADDER: No significant abnormality. BILE DUCTS: No significant abnormality. PANCREAS: No significant abnormality. SPLEEN: No significant abnormality. ADRENALS: No significant abnormality. RIGHT KIDNEY and URETER: No significant abnormality. LEFT KIDNEY and URETER: No significant abnormality. STOMACH and SMALL BOWEL: No significant abnormality. COLON: No significant abnormality. APPENDIX: No significant abnormality. PERITONEUM: In comparison with previous exam, there has developed a significant amount of fluid surro unding the liver which contains several air-fluid levels. Several small air pockets are present anter ior abdomen as well as persistent pockets of fluid air left mid and lower abdomen. Surgical changes a re present in the left mid abdomen. Extensive reticulation of mesentery fat is present especially lef t mid and upper abdomen. Moderate amount of fluid is present along the right paracolic gutter extendi ng into the dependent portion of the pelvis. LYMPH NODES: No significant adenopathy. AORTA and ARTERIES: No significant abnormality. IVC and VEINS: No significant abnormality. URINARY BLADDER: Small amount of air is present within the urinary bladder REPRODUCTIVE ORGANS: No significant abnormality. ADDITIONAL FINDINGS: Questionable early peritoneal dialysis catheter SKELETAL SYSTEM: Degenerative changes lumbar sacral junction IMPRESSION: 1. Moderate amount of fluid within the abdomen with several pockets of air within the free fluid 2. Scattered pockets of free air as described by report 3. Surgical changes left mid abdomen significant reticulation of surrounding fat 4. Progressive consolidation left lower lobe with associated left pleural effusion 5. Patchy parenchymal changes lingular segment left upper lobe and right middle lobe, atelectasis tish alexia pneumonia Signer Name: Yusuf Rocha MD Signed: 10/09/2019 3:18 PM Workstation Name: [id number]
[2019-10-09] MEDS: BENZONATATE 100 MG CAP PO SCH ×2 (15:35→21:25)
[2019-10-09] MEDS ORDERED: SODIUM CHLORIDE 0.9% 250ML 250 ML IV ONE (16:50)
--- NOTE | 2019-10-09 18:33 | Event Note ---
Date: 10/09/19 Saw the patient earlier this evening to explain my thoughts and to discuss our plan. I reviewed the recent CT scan, labs, vital signs, and pertinent notes. His white count is improved and his vitals remained normal. He is afebrile. The chest CT scan is concerning for possible infiltrates. I discussed this issue with Dr. Sexton. Plan is to continue broad-spectrum antibiotics and consult pulmonary. The patient sees Dr. Alejandra as an outpatient. As for the abdominal CT, I think the interpretation is not completely accurate as the radiologist was unaware that the patient just went back to surgery a few days ago and had an abdominal washout. He was comparing today's CT to the one that he had about 2 weeks ago. The recent surgery most likely accounts for the fluid and small bits of air on the right side of the abdomen. The initial perforation and subsequent anastomosis was on the left side. There are no signs of any anastomotic breakdown on that side. There are no inflammatory changes. Therefore, I think the CT findings are reflective of postoperative changes. It is possible that the residual fluid on the right side may be infected. That could explain his right flank pain. We will ask interventional radiology to review the CT and see if aspiration and/or drain placement would be reasonable. The creatinine is elevated on the most recent lab tests. This will be repeated. In the meantime, patient will be gently hydrated. All questions were answered. I encouraged the patient to continue his pulmonary toilet and walking. I have updated the nursing staff. Will hydrate overnight and repeat labs in the morning. Pulmonary and interventional radiology consults in the morning.
[2019-10-09] MEDS: MONTELUKAST 10 MG TAB PO SCH (21:25)
[2019-10-10] MEDS: IPRATROPIUM/ALBUTEROL SULFATE 3 ML AMPUL.NEB IH SCH ×4 (02:52→20:49)
[2019-10-10] MEDS: oxyCODONE /ACETAMINOPHEN 5-325MG TAB PO PRN (04:48)
[2019-10-10] MEDS: BENZONATATE 100 MG CAP PO SCH ×3 (04:59→21:45)
[2019-10-10] MEDS: CEFEPIME/NS 2 GM/100 ML 2 GM/100 ML BAG IV SCH (05:00)
[2019-10-10 06:25] LABS: Hematocrit 33.5 % (35.5-45.6); Hemoglobin 11.1 gm/dl (11.8-15.2); Mean Corpuscular HGB Conc 33 % (32-34); Mean Corpuscular Volume 91 fl (84-94); Platelet Count 527 K/mm3 (140-440); Red Blood Count 3.67 M/mm3 (3.65-5.03); Red Cell Distribution Width 15.2 % (13.2-15.2)
[2019-10-10 08:17] LABS: BUN/Creatinine Ratio 14; Blood Urea Nitrogen 27 mg/dL (9-20); Calcium 9.3 mg/dL (8.4-10.2); Hemolysis Index 1
--- NOTE | 2019-10-10 09:24 | Consultation ---
<PIYUSH VERDIN - Last Filed: 10/10/19 11:01> History of Present Illness Consult date: 10/10/19 Consult reason: chest pain History of present illness: Patient is a 54-year old male who had a recent prolonged hospitalization for bowel perforation following a colonoscopy. Patient was discharged home then returned 24-48 hours later with severe abdominal pain. The patient was seen by the surgeon taken urgently to the OR from the emergency department. On yesterday, patient complained of left sided chest pain thus this cardiac consultation. Noted with lower extremity edema. Cycled troponins are normal. An ECG is sinus rhythm with old inferior IN. No acute ischemic changes. Further evaluation with a chest CT scan reports left lower lobe pleural effusion with suspected left upper lobe pneumonia. Patient is known to [facility] and follows with Dr Armas. A year ago, following an acute myocardial infarction, he underwent stenting of the circumflex. In addition, he underwent second vessel plain old balloon angioplasty of the distal LAD occlusion. A small vessel mid right coronary artery stenosis was recommended for medical management. Left ventricle fraction 45-50%. Co-morbidities includes tobacco abuse, COPD, sleep apnea, hypertension and hyperlipidemia. Past History Past Medical History: acute IN, CAD, COPD, hypertension, other (obesity) Past Surgical History: arthroscopy (knee), PTCA, bowel surgery (partial colon resection.) Social history: smoking (2ppd), alcohol abuse (2 beers/day) Family history: no significant family history Medications and Allergies Allergies Allergy/AdvReac Type Severity Reaction Status Date / Time Sulfa (Sulfonamide Allergy Severe Rash Verified 03/22/16 18:34 Antibiotics) oxytetracycline Allergy Unknown Verified 03/22/16 10:32 [From Terramycin] oxytetracycline HCl Allergy Unknown Verified 03/22/16 10:32 [From Terramycin] Penicillins AdvReac Severe Shortness Verified 03/22/16 18:34 of Breath Home Medications Medication Instructions Recorded Confirmed Last Taken Type ALBUTEROL Inhaler (OR & NICU) 2 puff IH QID PRN #1 inhalation 08/17/18 10/06/19 Unknown Rx [ProAir HFA Inhaler] Arformoterol Nebu [Brovana Nebu] 15 mcg IH Q12HRT ml 08/17/18 10/06/19 10/05/19 Rx Benzonatate [Tessalon Perles] 100 mg PO Q8HR capsule 08/17/18 10/06/19 10/03/19 21:00 Rx Citalopram [Celexa] 20 mg PO QDAY #30 tablet 08/17/18 10/06/19 10/04/19 Rx Ipratropium/Albuterol Sulfate 1 ampul IH Q6HRT #30 ampul.neb 08/17/18 10/06/19 10/05/19 21:00 Rx [DUONEB *Not for PRN Use*] Lisinopril [Zestril TAB] 20 mg PO DAILY #30 tablet 08/17/18 10/06/19 10/05/19 08:00 Rx Metoprolol [Lopressor TAB] 100 mg PO BID #60 tablet 08/17/18 10/06/19 10/05/19 08:00 Rx Pravastatin [Pravachol] 40 mg PO QHS #30 tablet 08/17/18 10/06/19 10/04/19 22:00 Rx Symbicort 160-4.5 Mcg Inhaler 1 puff INHALATION BID #30 08/17/18 10/06/19 09/05/19 23:00 Rx Acetaminophen [Acetaminophen TAB] 2 tab PO Q4H PRN #30 tablet 10/03/19 10/06/19 Unknown Rx Bisacodyl [Dulcolax suppos] 10 mg MA QDAY PRN #4 supp.rect 10/03/19 10/06/19 Unknown Rx Pantoprazole [Protonix TAB] 40 mg PO BID #60 tablet 10/03/19 10/06/19 10/04/19 21:00 Rx Sucralfate [Carafate] 1 gm PO Q6HR 30 Days oral.liqd 10/03/19 10/06/19 10/05/19 08:00 Rx levoFLOXacin [Levaquin TAB] 750 mg PO QDAY #2 tablet 10/03/19 10/06/19 10/04/19 08:00 Rx oxyCODONE /ACETAMINOPHEN [Percocet 1 tab PO Q4H PRN #26 tablet 10/03/19 10/06/19 10/04/19 21:00 Rx 5/325 mg] Active Meds: Active Medications Acetaminophen (Tylenol) 650 mg PO Q4H PRN PRN Reason: Pain MILD(1-3)/Fever >100.5/ROMANO Last Admin: 10/09/19 05:09 Dose: 650 mg Documented by: Albuterol (Proventil) 2.5 mg IH Q4HRT PRN PRN Reason: Shortness Of Breath Albuterol/Ipratropium (Duoneb *Not For Prn Use*) 1 ampul IH Q6HRT [facility] Last Admin: 10/10/19 02:52 Dose: 1 ampul Documented by: Arformoterol Tartrate (Brovana Nebu) 15 mcg IH Q12HRT [facility] Last Admin: 10/09/19 20:50 Dose: Not Given Documented by: Benzonatate (Tessalon Perles) 100 mg PO Q8HR [facility] Last Admin: 10/10/19 04:59 Dose: 100 mg Documented by: Budesonide (Pulmicort) 0.5 mg IH Q12HRT [facility] Last Admin: 10/09/19 20:49 Dose: 0.5 mg Documented by: Citalopram Hydrobromide (Celexa) 20 mg PO QDAY [facility] Last Admin: 10/09/19 16:03 Dose: 20 mg Documented by: Docusate Sodium (Colace) 100 mg PO BID [facility] Last Admin: 10/09/19 21:25 Dose: 100 mg Documented by: Hydromorphone HCl (Dilaudid) 0.5 mg IV Q3H PRN PRN Reason: Pain , Severe (7-10) Last Admin: 10/09/19 15:09 Dose: 0.5 mg Documented by: Cefepime HCl (Cefepime/Ns 2 Gm/100 Ml) 2 gm in 100 mls @ 200 mls/hr IV Q8HR [facility]; Protocol Last Admin: 10/10/19 05:00 Dose: 200 mls/hr Documented by: Metoprolol Tartrate (Metoprolol) 100 mg PO BID [facility] Last Admin: 10/09/19 21:30 Dose: 100 mg Documented by: Montelukast Sodium (Singulair) 10 mg PO QHS [facility] Last Admin: 10/09/19 21:25 Dose: 10 mg Documented by: Ondansetron HCl (Zofran) 4 mg IV Q3H PRN PRN Reason: Nausea And Vomiting Oxycodone/Acetaminophen (Percocet 5/325) 2 tab PO Q6H PRN PRN Reason: Pain, Moderate (4-6) Last Admin: 10/10/19 04:48 Dose: 2 tab Documented by: Pantoprazole Sodium (Protonix) 40 mg PO BID [facility] Last Admin: 10/09/19 21:25 Dose: 40 mg Documented by: Polyethylene Glycol (Miralax [id number]) 17 gm PO BID PRN PRN Reason: Constipation Last Admin: 10/08/19 21:05 Dose: 17 gm Documented by: Psyllium Hydrophilic Mucilloid (Metamucil) 1 each PO QDAY [facility] Last Admin: 10/09/19 10:32 Dose: Not Given Documented by: Senna (Senokot) 8.6 mg PO Q12HR [facility] Sodium Chloride (Sodium Chloride Flush Syringe 10 Ml) 10 ml IV BID [facility] Last Admin: 10/09/19 21:26 Dose: 10 ml Documented by: Sodium Chloride (Sodium Chloride Flush Syringe 10 Ml) 10 ml IV PRN PRN PRN Reason: LINE FLUSH Physical Examination Vital Signs Temp Pulse Resp BP Pulse Ox 97.4 F L 72 18 124/60 95 10/05/19 11:09 10/05/19 11:09 10/05/19 11:09 10/05/19 11:09 10/05/19 11:09 General appearance: no acute distress, obese HEENT: Positive: PERRL Neck: Positive: trachea midline Cardiac: Positive: Reg Rate and Rhythm Lungs: Positive: Decreased Breath Sounds Abdomen: Positive: Other (abdominal wound vac is in place) Extremities: Present: edema Results 10/10/19 05:30 10/10/19 08:44 CBC 10/09/19 10/10/19 Range/Units 10:52 05:30 WBC 16.6 H 14.6 H (4.5-11.0) K/mm3 RBC 4.03 3.67 (3.65-5.03) M/mm3 Hgb 12.3 11.1 L (11.8-15.2) gm/dl Hct 37.0 33.5 L (35.5-45.6) % Plt Count 498 H 527 H (140-440) K/mm3 Comprehensive Metabolic Panel 10/09/19 10/09/19 10/10/19 Range/Units 10:52 17:23 05:30 Sodium 137 138 130 L D (137-145) mmol/L Potassium 4.7 D 5.1 H 4.6 (3.6-5.0) mmol/L Chloride 97.9 L 90.0 L 91.0 L (98-107) mmol/L Carbon Dioxide 20 L D 20 L 20 L (22-30) mmol/L BUN 23 H 27 H 35 H (9-20) mg/dL Creatinine 1.7 H D 1.9 H 2.0 H (0.8-1.5) mg/dL Glucose 109 H TNR 104 H (75-100) mg/dL Calcium 8.7 9.3 9.0 (8.4-10.2) mg/dL 10/10/19 Range/Units 08:44 Sodium (137-145) mmol/L Potassium (3.6-5.0) mmol/L Chloride (98-107) mmol/L Carbon Dioxide (22-30) mmol/L BUN (9-20) mg/dL Creatinine (0.8-1.5) mg/dL Glucose 140 H (75-100) mg/dL Calcium (8.4-10.2) mg/dL Assessment and Plan Severe abdominal pain s/p exploratory laparotomy, abdominal washout, closure of abdominal fascia with wound vac placement. Recent colon resection for bowel perforation following a colonoscopy Atypical chest pain chest CT reports left lower lobe pleural effusion with suspected left upper lobe pneumonia. troponins are normal Hx of IN/CAD PCI of the circumflex and second vessel POBA of the distal LAD occlusion. Left ventricle fraction 45-50%. Tobacco abuse COPD Hypertension Hyperlipidemia We will obtain an echocardiogram for LVEF reassessment. <RADHA BAKER - Last Filed: 10/10/19 12:05> Medications and Allergies Active Meds: Active Medications Acetaminophen (Tylenol) 650 mg PO Q4H PRN PRN Reason: Pain MILD(1-3)/Fever >100.5/ROMANO Last Admin: 10/09/19 05:09 Dose: 650 mg Documented by: Albuterol (Proventil) 2.5 mg IH Q4HRT PRN PRN Reason: Shortness Of Breath Albuterol/Ipratropium (Duoneb *Not For Prn Use*) 1 ampul IH Q6HRT [facility] Last Admin: 10/10/19 09:38 Dose: 1 ampul Documented by: Arformoterol Tartrate (Brovana Nebu) 15 mcg IH Q12HRT [facility] Last Admin: 10/10/19 09:39 Dose: 15 mcg Documented by: Benzonatate (Tessalon Perles) 100 mg PO Q8HR [facility] Last Admin: 10/10/19 04:59 Dose: 100 mg Documented by: Budesonide (Pulmicort) 0.5 mg IH Q12HRT [facility] Last Admin: 10/10/19 09:38 Dose: 0.5 mg Documented by: Citalopram Hydrobromide (Celexa) 20 mg PO QDAY [facility] Last Admin: 10/10/19 09:42 Dose: 20 mg Documented by: Docusate Sodium (Colace) 100 mg PO BID [facility] Last Admin: 10/10/19 09:42 Dose: 100 mg Documented by: Hydromorphone HCl (Dilaudid) 0.5 mg IV Q3H PRN PRN Reason: Pain , Severe (7-10) Last Admin: 10/10/19 10:03 Dose: 0.5 mg Documented by: Cefepime HCl (Cefepime/Ns 2 Gm/100 Ml) 2 gm in 100 mls @ 200 mls/hr IV Q8HR [facility]; Protocol Last Admin: 10/10/19 05:00 Dose: 200 mls/hr Documented by: Sodium Chloride (Nacl 0.9% 1000 Ml) 1,000 mls @ 75 mls/hr IV DIRECT [place] Metronidazole (Flagyl 500 Mg/100 Ml) 500 mg in 100 mls @ 100 mls/hr IV Q8HR [facility]; Protocol Metoprolol Tartrate (Metoprolol) 100 mg PO BID [facility] Last Admin: 10/10/19 09:42 Dose: 100 mg Documented by: Montelukast Sodium (Singulair) 10 mg PO QHS [facility] Last Admin: 10/09/19 21:25 Dose: 10 mg Documented by: Ondansetron HCl (Zofran) 4 mg IV Q3H PRN PRN Reason: Nausea And Vomiting Oxycodone/Acetaminophen (Percocet 5/325) 2 tab PO Q6H PRN PRN Reason: Pain, Moderate (4-6) Last Admin: 10/10/19 04:48 Dose: 2 tab Documented by: Pantoprazole Sodium (Protonix) 40 mg PO BID [facility] Last Admin: 10/10/19 09:41 Dose: 40 mg Documented by: Polyethylene Glycol (Miralax [id number]) 17 gm PO BID PRN PRN Reason: Constipation Last Admin: 10/08/19 21:05 Dose: 17 gm Documented by: Psyllium Hydrophilic Mucilloid (Metamucil) 1 each PO QDAY [facility] Last Admin: 10/10/19 09:42 Dose: 1 each Documented by: Senna (Senokot) 8.6 mg PO Q12HR [facility] Last Admin: 10/10/19 09:41 Dose: 8.6 mg Documented by: Sodium Chloride (Sodium Chloride Flush Syringe 10 Ml) 10 ml IV BID [facility] Last Admin: 10/10/19 09:43 Dose: 10 ml Documented by: Sodium Chloride (Sodium Chloride Flush Syringe 10 Ml) 10 ml IV PRN PRN PRN Reason: LINE FLUSH Physical Examination Vital Signs Temp Pulse Resp BP Pulse Ox 97.4 F L 72 18 124/60 95 10/05/19 11:09 10/05/19 11:09 10/05/19 11:09 10/05/19 11:09 10/05/19 11:09 Results 10/10/19 05:30 10/10/19 08:44 CBC 10/10/19 Range/Units 05:30 WBC 14.6 H (4.5-11.0) K/mm3 RBC 3.67 (3.65-5.03) M/mm3 Hgb 11.1 L (11.8-15.2) gm/dl Hct 33.5 L (35.5-45.6) % Plt Count 527 H (140-440) K/mm3 Comprehensive Metabolic Panel 10/09/19 10/10/19 10/10/19 Range/Units 17:23 05:30 08:44 Sodium 138 130 L D (137-145) mmol/L Potassium 5.1 H 4.6 (3.6-5.0) mmol/L Chloride 90.0 L 91.0 L (98-107) mmol/L Carbon Dioxide 20 L 20 L (22-30) mmol/L BUN 27 H 35 H (9-20) mg/dL Creatinine 1.9 H 2.0 H (0.8-1.5) mg/dL Glucose TNR 104 H 113 H Calcium 9.3 9.0 (8.4-10.2) mg/dL Assessment and Plan I seen and evaluated the patient agree with the assessment and plan. The patient presents with history of severe abdominal pain status post colonoscopy status post colon resection for bowel perforation status post exploratory laparotomy with abdominal washout and closure of abdominal fascia with wound VAC placement. The patient presented on the second hospital admission with atypical chest pain. Patient's chest CT reports a left lower lobe pleural effusion with suspected left upper lobe pneumonia. At this time recommend follow troponins. Check echocardiogram. Patient does have a history of coronary artery disease status post PCI of the circumflex. Continue maximal medical therapy for treatment of coronary artery disease.
[2019-10-10] MEDS: BUDESONIDE 0.5 MG/2 ML NEBU IH SCH ×2 (09:38→20:49)
[2019-10-10] MEDS: ARFORMOTEROL 15 MCG/2 ML NEBU IH SCH ×2 (09:39→20:49)
[2019-10-10] MEDS: PANTOPRAZOLE 40 MG TAB PO SCH ×2 (09:41→21:46)
[2019-10-10] MEDS: SENNOSIDES 8.6 MG TAB PO SCH ×2 (09:41→21:46)
[2019-10-10] MEDS: CITALOPRAM 20 MG TAB PO SCH (09:42)
[2019-10-10] MEDS: PSYLLIUM SEED (WITH SUGAR) 3.4 GM PACKET PO SCH (09:42)
[2019-10-10] MEDS: METOPROLOL TARTRATE 100 MG TAB PO SCH ×2 (09:42→21:46)
[2019-10-10] MEDS: DOCUSATE SODIUM 100 MG CAP PO SCH ×2 (09:42→21:46)
[2019-10-10] MEDS ORDERED: SODIUM CHLORIDE 0.9% 1000 ML 1,000 ML IV SCH (10:00)
[2019-10-10] MEDS: HYDROmorphone 1 MG/1 ML INJ IV PRN ×4 (10:03→21:19)
--- NOTE | 2019-10-10 10:27 | Progress Note ---
Assessment and Plan - Patient Problems (1) Dehiscence of closure of fascia, superficial or muscular Current Visit: No Status: Acute Qualifiers: Encounter type: initial encounter Qualified Code(s): T81.32XA - Disruption of internal operation (surgical) wound, not elsewhere classified, initial encounter Plan to address problem: Pt stable. s/p ex lap with closure of abdominal wall and wound vac placement (10/05) - POD#5. He appears to be losing hope that he will get better. I mentioned this impression to his and she agreed. Would like to get the fluid collections on the right side of the abdomen aspirated and drained if possible. Spoke with Dr. Holley about that this morning. We'll try to get done today. Rec: 1) Wound vac - discussed with wound care nurse this morning. She will leave supplies at the bedside for me to change the wound VAC on Tuesday. 2) Nutrition - Regular Diet. He may be beginning to develop an ileus as his flatus amount is decreasing and he is starting to belch. Will monitor. 3) Activity - Needs to ambulate. 4) Pulmonary Toilet - encouraged coughing and deep breathing. He is apprehensive due to the fascial dehiscence occurring with the last coughing bout. I encouraged him to keep the binder on tight and reinforce the abdomen with a pillow. 5) Leukocytosis - Continues to come down. However, his platelets are rising. There is some inflammatory process occurring. Possibly due to the fluid collections on the right side of the abdomen. 6) Peripheral Edema - this may be third spacing of fluid due to his increased inflammatory state. 7) Renal Insufficiency - creatinine slowly rising. Discussed with Dr. Sexton. He will consult nephrology. 8) Abdominal Fluid collections - Dr. Holley will try to aspirate today. Unfortunately, as the patient had breakfast, they will not be able to facilitate him. I tried to encourage the patient to do the best he can to get through the procedure. I think draining of the fluid will help in his overall recovery. 9) DVT prophylaxis - I think he is far enough out from his GI bleed that we should consider starting subcutaneous heparin to minimize his risk for DVTs Will follow along. Please call with questions. Time=15min Subjective Date of service: 10/10/19 Patient Reports: Positive: still having pain (on the right side), tolerating a regular diet, flatus (getting less), no bowel movement, afebrile, other (starting to belch). Negative: nausea, vomiting, shortness of breath Objective Vital Signs - 12hr 10/10/19 10/10/19 10/10/19 00:00 00:03 03:05 Temperature 98.3 F Pulse Rate 104 H Pulse Rate [ 100 H Anterior Bilateral Throughout] Pulse Rate [ 107 H Anterior Right Upper Lobe] Respiratory 24 Rate Respiratory 20 Rate [Anterior Bilateral Throughout] Respiratory 20 Rate [Anterior Right Upper Lobe] Blood Pressure 104/87 O2 Sat by Pulse 87 90 Oximetry 10/10/19 10/10/19 10/10/19 04:48 04:57 07:50 Temperature 98.7 F 97.3 F L Pulse Rate 106 H 101 H Pulse Rate [ Anterior Bilateral Throughout] Pulse Rate [ Anterior Right Upper Lobe] Respiratory 18 22 20 Rate Respiratory Rate [Anterior Bilateral Throughout] Respiratory Rate [Anterior Right Upper Lobe] Blood Pressure 105/54 112/62 O2 Sat by Pulse 95 90 Oximetry 10/10/19 10/10/19 10/10/19 09:42 09:51 10:21 Temperature Pulse Rate 101 H Pulse Rate [ 100 H Anterior Bilateral Throughout] Pulse Rate [ 102 H Anterior Right Upper Lobe] Respiratory Rate Respiratory 14 Rate [Anterior Bilateral Throughout] Respiratory 15 Rate [Anterior Right Upper Lobe] Blood Pressure O2 Sat by Pulse 94 Oximetry - General physical appearance no distress, no pain - Respiratory normal respiratory effort - Abdomen soft, tender (mainly on the right side. rest of abdomen is minimally tender. ), bowel sounds hypoactive, guarding (only on right side), not rigid, other (wound vac in place. ) - Integumentary no rash, no growths, no abnormal pigmentation - Psychiatric oriented to time, oriented to person, oriented to place, speech is normal, memory intact - Labs 10/10/19 05:30 10/10/19 08:44 Diabetes panel 10/09/19 10/09/19 10/10/19 Range/Units 10:52 17:23 05:30 Sodium 137 138 130 L D (137-145) mmol/L Potassium 4.7 D 5.1 H 4.6 (3.6-5.0) mmol/L Chloride 97.9 L 90.0 L 91.0 L (98-107) mmol/L Carbon Dioxide 20 L D 20 L 20 L (22-30) mmol/L BUN 23 H 27 H 35 H (9-20) mg/dL Creatinine 1.7 H D 1.9 H 2.0 H (0.8-1.5) mg/dL Glucose 109 H TNR 104 H (75-100) mg/dL Calcium 8.7 9.3 9.0 (8.4-10.2) mg/dL 10/10/19 Range/Units 08:44 Sodium (137-145) mmol/L Potassium (3.6-5.0) mmol/L Chloride (98-107) mmol/L Carbon Dioxide (22-30) mmol/L BUN (9-20) mg/dL Creatinine (0.8-1.5) mg/dL Glucose 113 H (75-100) mg/dL Calcium (8.4-10.2) mg/dL Calcium panel 10/09/19 10/09/19 10/10/19 Range/Units 10:52 17:23 05:30 Calcium 8.7 9.3 9.0 (8.4-10.2) mg/dL Pituitary panel 10/09/19 10/09/19 10/10/19 Range/Units 10:52 17:23 05:30 Sodium 137 138 130 L D (137-145) mmol/L Potassium 4.7 D 5.1 H 4.6 (3.6-5.0) mmol/L Chloride 97.9 L 90.0 L 91.0 L (98-107) mmol/L Carbon Dioxide 20 L D 20 L 20 L (22-30) mmol/L BUN 23 H 27 H 35 H (9-20) mg/dL Creatinine 1.7 H D 1.9 H 2.0 H (0.8-1.5) mg/dL Glucose 109 H TNR 104 H (75-100) mg/dL Calcium 8.7 9.3 9.0 (8.4-10.2) mg/dL 10/10/19 Range/Units 08:44 Sodium (137-145) mmol/L Potassium (3.6-5.0) mmol/L Chloride (98-107) mmol/L Carbon Dioxide (22-30) mmol/L BUN (9-20) mg/dL Creatinine (0.8-1.5) mg/dL Glucose 113 H (75-100) mg/dL Calcium (8.4-10.2) mg/dL Adrenal panel 10/09/19 10/09/19 10/10/19 Range/Units 10:52 17:23 05:30 Sodium 137 138 130 L D (137-145) mmol/L Potassium 4.7 D 5.1 H 4.6 (3.6-5.0) mmol/L Chloride 97.9 L 90.0 L 91.0 L (98-107) mmol/L Carbon Dioxide 20 L D 20 L 20 L (22-30) mmol/L BUN 23 H 27 H 35 H (9-20) mg/dL Creatinine 1.7 H D 1.9 H 2.0 H (0.8-1.5) mg/dL Glucose 109 H TNR 104 H (75-100) mg/dL Calcium 8.7 9.3 9.0 (8.4-10.2) mg/dL 10/10/19 Range/Units 08:44 Sodium (137-145) mmol/L Potassium (3.6-5.0) mmol/L Chloride (98-107) mmol/L Carbon Dioxide (22-30) mmol/L BUN (9-20) mg/dL Creatinine (0.8-1.5) mg/dL Glucose 113 H (75-100) mg/dL Calcium (8.4-10.2) mg/dL - Imaging CT scan - abdomen: report reviewed, image reviewed CT scan - chest: report reviewed, image reviewed CT scan - pelvis: report reviewed, image reviewed
--- NOTE | 2019-10-10 10:34 | Consultation ---
Past History Past Medical History: acute MA, CAD, COPD, hypertension, other (obesity) Past Surgical History: arthroscopy (knee), PTCA, bowel surgery (partial colon resection.) Social history: smoking (2ppd), alcohol abuse (2 beers/day) Family history: no significant family history Medications and Allergies Allergies Allergy/AdvReac Type Severity Reaction Status Date / Time Sulfa (Sulfonamide Allergy Severe Rash Verified 03/22/16 18:34 Antibiotics) oxytetracycline Allergy Unknown Verified 03/22/16 10:32 [From Terramycin] oxytetracycline HCl Allergy Unknown Verified 03/22/16 10:32 [From Terramycin] Penicillins AdvReac Severe Shortness Verified 03/22/16 18:34 of Breath Home Medications Medication Instructions Recorded Confirmed Last Taken Type ALBUTEROL Inhaler (OR & NICU) 2 puff IH QID PRN #1 inhalation 08/17/18 10/06/19 Unknown Rx [ProAir HFA Inhaler] Arformoterol Nebu [Brovana Nebu] 15 mcg IH Q12HRT ml 08/17/18 10/06/19 10/05/19 Rx Benzonatate [Tessalon Perles] 100 mg PO Q8HR capsule 08/17/18 10/06/19 10/03/19 21:00 Rx Citalopram [Celexa] 20 mg PO QDAY #30 tablet 08/17/18 10/06/19 10/04/19 Rx Ipratropium/Albuterol Sulfate 1 ampul IH Q6HRT #30 ampul.neb 08/17/18 10/06/19 10/05/19 21:00 Rx [DUONEB *Not for PRN Use*] Lisinopril [Zestril TAB] 20 mg PO DAILY #30 tablet 08/17/18 10/06/19 10/05/19 08:00 Rx Metoprolol [Lopressor TAB] 100 mg PO BID #60 tablet 08/17/18 10/06/19 10/05/19 08:00 Rx Pravastatin [Pravachol] 40 mg PO QHS #30 tablet 08/17/18 10/06/19 10/04/19 22:00 Rx Symbicort 160-4.5 Mcg Inhaler 1 puff INHALATION BID #30 08/17/18 10/06/19 09/05/19 23:00 Rx Acetaminophen [Acetaminophen TAB] 2 tab PO Q4H PRN #30 tablet 10/03/19 10/06/19 Unknown Rx Bisacodyl [Dulcolax suppos] 10 mg LA QDAY PRN #4 supp.rect 10/03/19 10/06/19 Unknown Rx Pantoprazole [Protonix TAB] 40 mg PO BID #60 tablet 10/03/19 10/06/19 10/04/19 21:00 Rx Sucralfate [Carafate] 1 gm PO Q6HR 30 Days oral.liqd 10/03/19 10/06/19 10/05/19 08:00 Rx levoFLOXacin [Levaquin TAB] 750 mg PO QDAY #2 tablet 10/03/19 10/06/19 10/04/19 08:00 Rx oxyCODONE /ACETAMINOPHEN [Percocet 1 tab PO Q4H PRN #26 tablet 10/03/19 10/06/19 10/04/19 21:00 Rx 5/325 mg] Active Meds: Active Medications Acetaminophen (Tylenol) 650 mg PO Q4H PRN PRN Reason: Pain MILD(1-3)/Fever >100.5/ROMANO Last Admin: 10/09/19 05:09 Dose: 650 mg Documented by: Albuterol (Proventil) 2.5 mg IH Q4HRT PRN PRN Reason: Shortness Of Breath Albuterol/Ipratropium (Duoneb *Not For Prn Use*) 1 ampul IH Q6HRT [facility] Last Admin: 10/10/19 09:38 Dose: 1 ampul Documented by: Arformoterol Tartrate (Brovana Nebu) 15 mcg IH Q12HRT [facility] Last Admin: 10/10/19 09:39 Dose: 15 mcg Documented by: Benzonatate (Tessalon Perles) 100 mg PO Q8HR [facility] Last Admin: 10/10/19 04:59 Dose: 100 mg Documented by: Budesonide (Pulmicort) 0.5 mg IH Q12HRT [facility] Last Admin: 10/10/19 09:38 Dose: 0.5 mg Documented by: Citalopram Hydrobromide (Celexa) 20 mg PO QDAY [facility] Last Admin: 10/10/19 09:42 Dose: 20 mg Documented by: Docusate Sodium (Colace) 100 mg PO BID [facility] Last Admin: 10/10/19 09:42 Dose: 100 mg Documented by: Hydromorphone HCl (Dilaudid) 0.5 mg IV Q3H PRN PRN Reason: Pain , Severe (7-10) Last Admin: 10/10/19 10:03 Dose: 0.5 mg Documented by: Cefepime HCl (Cefepime/Ns 2 Gm/100 Ml) 2 gm in 100 mls @ 200 mls/hr IV Q8HR [facility]; Protocol Last Admin: 10/10/19 05:00 Dose: 200 mls/hr Documented by: Sodium Chloride (Nacl 0.9% 1000 Ml) 1,000 mls @ 75 mls/hr IV DIRECT [facility] Metoprolol Tartrate (Metoprolol) 100 mg PO BID [facility] Last Admin: 10/10/19 09:42 Dose: 100 mg Documented by: Montelukast Sodium (Singulair) 10 mg PO QHS [facility] Last Admin: 10/09/19 21:25 Dose: 10 mg Documented by: Ondansetron HCl (Zofran) 4 mg IV Q3H PRN PRN Reason: Nausea And Vomiting Oxycodone/Acetaminophen (Percocet 5/325) 2 tab PO Q6H PRN PRN Reason: Pain, Moderate (4-6) Last Admin: 10/10/19 04:48 Dose: 2 tab Documented by: Pantoprazole Sodium (Protonix) 40 mg PO BID [facility] Last Admin: 10/10/19 09:41 Dose: 40 mg Documented by: Polyethylene Glycol (Miralax [id number]) 17 gm PO BID PRN PRN Reason: Constipation Last Admin: 10/08/19 21:05 Dose: 17 gm Documented by: Psyllium Hydrophilic Mucilloid (Metamucil) 1 each PO QDAY [facility] Last Admin: 10/10/19 09:42 Dose: 1 each Documented by: Giovanny (Senokot) 8.6 mg PO Q12HR [facility] Last Admin: 10/10/19 09:41 Dose: 8.6 mg Documented by: Sodium Chloride (Sodium Chloride Flush Syringe 10 Ml) 10 ml IV BID [facility] Last Admin: 10/10/19 09:43 Dose: 10 ml Documented by: Sodium Chloride (Sodium Chloride Flush Syringe 10 Ml) 10 ml IV PRN PRN PRN Reason: LINE FLUSH Physical Examination Vital signs: Vital Signs Temp Pulse Resp BP Pulse Ox 97.4 F L 72 18 124/60 95 10/05/19 11:09 10/05/19 11:09 10/05/19 11:09 10/05/19 11:09 10/05/19 11:09 Results - Laboratory Findings CBC and BMP: 10/10/19 05:30 10/10/19 08:44 Abnormal lab findings: Abnormal Labs 10/06/19 10/06/19 10/07/19 05:36 05:36 05:54 WBC 21.8 H 21.5 H RBC 3.55 L Hgb 10.9 L Hct 32.7 L Plt Count Seg Neuts % (Manual) 91.0 H Lymphocytes % (Manual) 2.0 L Seg Neutrophils # Man 19.8 H Lymphocytes # (Manual) 0.4 L Monocytes # (Manual) 1.1 H Sodium 135 L Potassium Chloride 95.9 L Carbon Dioxide BUN Creatinine 0.7 L Glucose POC Glucose Calcium Total Protein 5.7 L Albumin 2.5 L 10/07/19 10/09/19 10/09/19 05:54 10:52 10:52 WBC 16.6 H RBC Hgb Hct Plt Count 498 H Seg Neuts % (Manual) 93.0 H Lymphocytes % (Manual) 5.0 L Seg Neutrophils # Man 15.4 H Lymphocytes # (Manual) 0.8 L Monocytes # (Manual) Sodium Potassium Chloride 97.9 L Carbon Dioxide 20 L D BUN 23 H Creatinine 1.7 H D Glucose 109 H POC Glucose Calcium 8.1 L Total Protein Albumin 10/09/19 10/10/19 10/10/19 17:23 05:30 05:30 WBC 14.6 H RBC Hgb 11.1 L Hct 33.5 L Plt Count 527 H Seg Neuts % (Manual) Lymphocytes % (Manual) Seg Neutrophils # Man Lymphocytes # (Manual) Monocytes # (Manual) Sodium 130 L D Potassium 5.1 H Chloride 90.0 L 91.0 L Carbon Dioxide 20 L 20 L BUN 27 H 35 H Creatinine 1.9 H 2.0 H Glucose 104 H POC Glucose Calcium Total Protein Albumin 10/10/19 10/10/19 08:33 08:44 WBC RBC Hgb Hct Plt Count Seg Neuts % (Manual) Lymphocytes % (Manual) Seg Neutrophils # Man Lymphocytes # (Manual) Monocytes # (Manual) Sodium Potassium Chloride Carbon Dioxide BUN Creatinine Glucose 113 H POC Glucose 117 H Calcium Total Protein Albumin
[2019-10-10] MEDS ORDERED: LIDOCAINE 1%/EPINEPHRINE 1:100,000 VIAL (20 ML) INFILTRATI ONE ×3 (10:48→11:36)
--- NOTE | 2019-10-10 11:14 | Progress Note ---
Assessment and Plan Assessment and plan: - Patient Problems (1) Dehiscence of closure of fascia, superficial or muscular Current Visit: Yes Status: Acute Plan to address problem: Patient status post surgical correction. Patient white count did go up to 21. Not sure if this is related. No fever. wound vac is in place concern of free air, although this can be from the recent surgery, IR procedure planned today (2) Atypical chest pain: cardiac enzymes negative. cardiology following, awaiting Echo (3)Pulmonary consolidation vs atalalectasis Current Visit: Yes Status: Chronic Qualifiers: COPD type: unspecified COPD Qualified Code(s): J44.9 - Chronic obstructive pulmonary disease, unspecified Plan to address problem: Doing much better. Would discontinue continuous pulse ox so patient can become more active walking around. Pulmonary consolidation-will obtain Pulmonary consult Continue abx, for presumed Pneumonia, Not present on admission Encourage compliance with incentive spirometer (4) Acute sepsis -possible Aspiration Pneumonia. Considering pulmonary consolidation- ID consulted (5) Acute kidney injury secondary to ATN Nephrology consult Continue IV fluids NS (6)HLD (hyperlipidemia) Current Visit: Yes Status: Chronic Qualifiers: Hyperlipidemia type: mixed hyperlipidemia Qualified Code(s): E78.2 - Mixed hyperlipidemia Plan to address problem: Patient lipids stable. Continue statin if needed. (6) HTN (hypertension) Current Visit: Yes Status: Chronic Qualifiers: Hypertension type: essential hypertension Qualified Code(s): I10 - Essential (primary) hypertension Plan to address problem: Patient continues to have optimal control blood pressure. Does have some lower extremity edema that needs to be addressed. (7) COPD (chronic obstructive pulmonary disease) Current Visit: No Status: Acute Qualifiers: COPD type: COPD with acute exacerbation Qualified Code(s): J44.1 - Chronic obstructive pulmonary disease with (acute) exacerbation (8) Edema of both lower extremities Current Visit: Yes Status: Acute Plan to address problem: Both lower extremities. Appears to be dependent edema patient has been in bed sits up at the side of bed gravity takes fluid down to the legs. Patient does have +4 pitting edema. We'll treat with low-dose diuretic now. Hypoalbuminemia secondary to surgery Acute blood loss anemia- expected: Monitor Peripheral Edema - lasix given Discussed with surgical team History Interval history: Patient seen and examined, improved respiration and ambulatory per staff. Going for possible IR procedure today Hospitalist Physical - Physical exam Narrative exam: General appearance: Present: NO ACUTE DISTRESS, well-nourished - EENT Eyes: Present: PERRL, EOM intact ENT: hearing intact, clear oral mucosa, dentition normal - Neck Neck: Present: supple, normal ROM - Respiratory Respiratory effort: normal, diminished left > right - Cardiovascular Rhythm: irregularly irregular Heart Sounds: Present: S1 & S2 - Extremities Extremities: no ischemia, pulses intact, pulses symmetrical, No edema, normal temperature, normal color Extremity abnormal: erythema - Abdominal General gastrointestinal: soft, other (postsurgical changes with binder . mild tender on right upper quandrant. Binder in place) - Integumentary Integumentary: Present: clear, warm, dry - Psychiatric Psychiatric: appropriate mood/affect, intact judgment & insight, agitated - Neurologic Neurologic: CNII-XII intact, moves all extremities - Constitutional Vitals: Temp Pulse Resp BP Pulse Ox 97.3 F L 100 H 20 122/60 98 10/10/19 07:50 10/10/19 11:00 10/10/19 11:00 10/10/19 11:00 10/10/19 11:00 General appearance: Present: no acute distress, obese Results - Labs CBC & Chem 7: 10/10/19 05:30 10/10/19 08:44 Labs: Laboratory Last Values WBC 14.6 K/mm3 (4.5-11.0) H 10/10/19 05:30 RBC 3.67 M/mm3 (3.65-5.03) 10/10/19 05:30 Hgb 11.1 gm/dl (11.8-15.2) L 10/10/19 05:30 Hct 33.5 % (35.5-45.6) L 10/10/19 05:30 MCV 91 fl (84-94) 10/10/19 05:30 MCH 30 pg (28-32) 10/10/19 05:30 MCHC 33 % (32-34) 10/10/19 05:30 RDW 15.2 % (13.2-15.2) 10/10/19 05:30 Plt Count 527 K/mm3 (140-440) H 10/10/19 05:30 Add Manual Diff Complete 10/09/19 10:52 Total Counted 100 10/09/19 10:52 Seg Neutrophils % [employer] Shoe Inspector 10/09/19 10:52 Seg Neuts % (Manual) 93.0 % (40.0-70.0) H 10/09/19 10:52 Band Neutrophils % 1.0 % 10/09/19 10:52 Lymphocytes % (Manual) 5.0 % (13.4-35.0) L 10/09/19 10:52 Reactive Lymphs % (Man) 0 % 10/09/19 10:52 Monocytes % (Manual) 1.0 % (0.0-7.3) 10/09/19 10:52 Eosinophils % (Manual) 0 % (0.0-4.3) 10/09/19 10:52 Basophils % (Manual) 0 % (0.0-1.8) 10/09/19 10:52 Metamyelocytes % 0 % 10/09/19 10:52 Myelocytes % 0 % 10/09/19 10:52 Promyelocytes % 0 % 10/09/19 10:52 Blast Cells % 0 % 10/09/19 10:52 Nucleated RBC % Not Reportable 10/09/19 10:52 Seg Neutrophils # Man 15.4 K/mm3 (1.8-7.7) H 10/09/19 10:52 Band Neutrophils # 0.2 K/mm3 10/09/19 10:52 Lymphocytes # (Manual) 0.8 K/mm3 (1.2-5.4) L 10/09/19 10:52 Abs React Lymphs (Man) 0.0 K/mm3 10/09/19 10:52 Monocytes # (Manual) 0.2 K/mm3 (0.0-0.8) 10/09/19 10:52 Eosinophils # (Manual) 0.0 K/mm3 (0.0-0.4) 10/09/19 10:52 Basophils # (Manual) 0.0 K/mm3 (0.0-0.1) 10/09/19 10:52 Metamyelocytes # 0.0 K/mm3 10/09/19 10:52 Myelocytes # 0.0 K/mm3 10/09/19 10:52 Promyelocytes # 0.0 K/mm3 10/09/19 10:52 Blast Cells # 0.0 K/mm3 10/09/19 10:52 WBC Morphology Not Reportable 10/09/19 10:52 Hypersegmented Neuts Not Reportable 10/09/19 10:52 Hyposegmented Neuts Not Reportable 10/09/19 10:52 Hypogranular Neuts Not Reportable 10/09/19 10:52 Smudge Cells Not Reportable 10/09/19 10:52 Toxic Granulation Not Reportable 10/09/19 10:52 Toxic Vacuolation Not Reportable 10/09/19 10:52 Dohle Bodies Not Reportable 10/09/19 10:52 Pelger-Huet Anomaly Not Reportable 10/09/19 10:52 Andres Rods Not Reportable 10/09/19 10:52 Platelet Estimate Consistent w auto 10/09/19 10:52 Clumped Platelets Not Reportable 10/09/19 10:52 Plt Clumps, EDTA Not Reportable 10/09/19 10:52 Large Platelets Rare 10/09/19 10:52 Giant Platelets Not Reportable 10/09/19 10:52 Platelet Satelliting Not Reportable 10/09/19 10:52 Plt Morphology Comment Not Reportable 10/09/19 10:52 RBC Morphology Normal 10/09/19 10:52 Dimorphic RBCs Not Reportable 10/09/19 10:52 Polychromasia Not Reportable 10/09/19 10:52 Hypochromasia Not Reportable 10/09/19 10:52 Poikilocytosis Not Reportable 10/09/19 10:52 Anisocytosis Not Reportable 10/09/19 10:52 Microcytosis Not Reportable 10/09/19 10:52 Macrocytosis Not Reportable 10/09/19 10:52 Spherocytes Not Reportable 10/09/19 10:52 Pappenheimer Bodies Not Reportable 10/09/19 10:52 Sickle Cells Not Reportable 10/09/19 10:52 Target Cells Not Reportable 10/09/19 10:52 Tear Drop Cells Not Reportable 10/09/19 10:52 Ovalocytes Not Reportable 10/09/19 10:52 Helmet Cells Not Reportable 10/09/19 10:52 Varghese-Langley Bodies Not Reportable 10/09/19 10:52 [place] Rings Not Reportable 10/09/19 10:52 Bishnu Cells Not Reportable 10/09/19 10:52 Bite Cells Not Reportable 10/09/19 10:52 Crenated Cell Not Reportable 10/09/19 10:52 Elliptocytes Not Reportable 10/09/19 10:52 Acanthocytes (Spur) Not Reportable 10/09/19 10:52 Rouleaux Not Reportable 10/09/19 10:52 Hemoglobin C Crystals Not Reportable 10/09/19 10:52 Schistocytes Not Reportable 10/09/19 10:52 Malaria parasites Not Reportable 10/09/19 10:52 Toni Bodies Not Reportable 10/09/19 10:52 Hem Pathologist Commnt No 10/09/19 10:52 Sodium 130 mmol/L (137-145) L D 10/10/19 05:30 Potassium 4.6 mmol/L (3.6-5.0) 10/10/19 05:30 Chloride 91.0 mmol/L (98-107) L 10/10/19 05:30 Carbon Dioxide 20 mmol/L (22-30) L 10/10/19 05:30 Anion Gap 24 mmol/L 10/10/19 05:30 BUN 35 mg/dL (9-20) H 10/10/19 05:30 Creatinine 2.0 mg/dL (0.8-1.5) H 10/10/19 05:30 Estimated GFR 35 ml/min 10/10/19 05:30 BUN/Creatinine Ratio 18 % 10/10/19 05:30 Glucose 113 mg/dL (75-100) H 10/10/19 08:44 POC Glucose 117 (70-105) H 10/10/19 08:33 Hemoglobin A1c 5.7 % (4-6) 10/06/19 05:36 Calcium 9.0 mg/dL (8.4-10.2) 10/10/19 05:30 Total Bilirubin 0.40 mg/dL (0.1-1.2) 10/06/19 05:36 AST 22 units/L (5-40) 10/06/19 05:36 ALT 9 units/L (7-56) 10/06/19 05:36 Alkaline Phosphatase 78 units/L (35-129) 10/06/19 05:36 Troponin T < 0.010 ng/mL (0.00-0.029) 10/09/19 17:23 Total Protein 5.7 g/dL (6.3-8.2) L 10/06/19 05:36 Albumin 2.5 g/dL (3.9-5) L 10/06/19 05:36 Albumin/Globulin Ratio 0.8 % 10/06/19 05:36 Active Medications - Current Medications Current Medications: Generic Name Dose Route Start Last Admin Trade Name Freq PRN Reason Stop Dose Admin Acetaminophen 650 mg 10/05/19 21:22 10/09/19 05:09 Tylenol PO 650 mg Q4H PRN Administration Pain MILD(1-3)/Fever >100.5/ROMANO Albuterol 2.5 mg 10/05/19 21:36 Proventil IH Q4HRT PRN Shortness Of Breath Albuterol/Ipratropium 1 ampul 10/06/19 02:00 10/10/19 09:38 Duoneb *Not For Prn Use* IH 1 ampul Q6HRT [facility] Administration Arformoterol Tartrate 15 mcg 10/06/19 08:30 10/10/19 09:39 Brovana Nebu IH 15 mcg Q12HRT [facility] Administration Benzonatate 100 mg 10/09/19 14:00 10/10/19 04:59 Tessalon Perles PO 100 mg Q8HR [facility] Administration Budesonide 0.5 mg 10/07/19 12:20 10/10/19 09:38 Pulmicort IH 0.5 mg Q12HRT [facility] Administration Citalopram Hydrobromide 20 mg 10/06/19 10:00 10/10/19 09:42 Celexa PO 20 mg QDAY [facility] Administration Docusate Sodium 100 mg 10/08/19 22:00 10/10/19 09:42 Colace PO 100 mg BID [facility] Administration Hydromorphone HCl 0.5 mg 10/05/19 21:22 10/10/19 10:03 Dilaudid IV 0.5 mg Q3H PRN Administration Pain , Severe (7-10) Cefepime HCl 2 gm in 100 mls @ 200 mls/hr 10/05/19 22:00 10/10/19 05:00 Cefepime/Ns 2 Gm/100 Ml IV 200 mls/hr Q8HR [facility] Administration Protocol Sodium Chloride 1,000 mls @ 75 mls/hr 10/10/19 10:00 Nacl 0.9% 1000 Ml IV DIRECT [facility] Metoprolol Tartrate 100 mg 10/06/19 10:00 10/10/19 09:42 Metoprolol PO 100 mg BID [facility] Administration Montelukast Sodium 10 mg 10/09/19 22:00 10/09/19 21:25 Singulair PO 10 mg QHS [facility] Administration Ondansetron HCl 4 mg 10/05/19 21:22 Zofran IV Q3H PRN Nausea And Vomiting Oxycodone/Acetaminophen 2 tab 10/06/19 12:26 10/10/19 04:48 Percocet 5/325 PO 2 tab Q6H PRN Administration Pain, Moderate (4-6) Pantoprazole Sodium 40 mg 10/06/19 10:00 10/10/19 09:41 Protonix PO 40 mg BID [facility] Administration Polyethylene Glycol 17 gm 10/08/19 20:05 10/08/19 21:05 Miralax 3350 PO 17 gm BID PRN Administration Constipation Psyllium Hydrophilic Mucilloid 1 each 10/09/19 10:00 10/10/19 09:42 Metamucil PO 1 each QDAY [facility] Administration Senna 8.6 mg 10/10/19 10:00 10/10/19 09:41 Senokot PO 8.6 mg Q12HR [facility] Administration Sodium Chloride 10 ml 10/05/19 22:00 10/10/19 09:43 Sodium Chloride Flush Syringe 10 Ml IV 10 ml BID [facility] Administration Sodium Chloride 10 ml 10/05/19 21:22 Sodium Chloride Flush Syringe 10 Ml IV PRN PRN LINE FLUSH Nutrition/Malnutrition Assess - Dietary Evaluation Nutrition/Malnutrition Findings: Nutrition Notes Start: 10/08/19 11:36 Freq: Status: Active Protocol: Document 10/08/19 11:36 LP (Rec: 10/08/19 11:41 LP 3T- ) Nutrition Notes Need for Assessment generated from: MD Order Initial or Follow up Assessment Current Diagnosis COPD,Hypertension Other Pertinent Diagnosis AMI, Abdominal Fascial dishiscence S/P exp lap Current Diet cardiac Labs/Tests Reviewed Pertinent Medications Reviewed Height 6 ft Weight 127.006 kg [place] Body Weight (kg) 80.90 BMI 38.0 Weight Status Morbidly Obese Subjective/Other Information Consult for malnutrition. Pt states eating well [employer] and now . Pt consumed 100% of breakfast this AM. Pt denies wt changes and there are no physical signs of malnutrition . Pt denies need for more food or supplement for protein. Burn Absent Trauma Absent GI Symptoms None Minimum of two criteria No physical signs of malnutrition #1 Nutrition Diagnosis Increased nutrient needs ( specify in comment below) Comments: Protein Etiology Sx As Evidenced by Signs and Symptoms Pt with multiple sx and exp lap Is patient on ventilator? No Is Patient Ambulatory and/or Out of Bed Yes REE-([place]. Jeor-ambulatory/OOB) [ [id number] NUTR.[id number]] Kcal/Kg value to use for calculation 15 Approximate Energy Requirements Using 1905 kcal/Kg Calculation Used for Recommendations Kcal/kg Additional Notes Protein needs are Nutrition Intervention Change Diet Order: Continue cardiac Goal #1 Continue meeting 80% of kcal or protein needs Anticipated Discharge Needs: Cardiac diet Revisit per MD consult or patient Sign Off request:
--- NOTE | 2019-10-10 12:01 | Post Operative Note ---
Date of procedure: 10/10/19 Pre-op diagnosis: Fluid collections Post-op diagnosis: same Findings: Feculant material noted in the drain - Dr. Krause contacted and alerted. Procedure: CT guided placement of a 8 Fr APD drain in the RUQ CT guided placement of a 8 Fr APD drain in the RLQ Anesthesia: local Surgeon: LIZ HDZ Estimated blood loss: minimal Condition: stable Disposition: floor
[2019-10-10] MEDS: metroNIDAZOLE/NS 500 MG/100 ML 500 MG/100 ML BAG IV SCH ×2 (13:46→22:25)
--- NOTE | 2019-10-10 14:01 | Event Note ---
Date: 10/10/19 Follow-up Spoke with Dr. Holley. I got the details of the procedure. The pelvic fluid collection was more concerning in appearance. The fluid in the upper drain is serous and the bottom drain is a slightly thick, guardado fluid. I have asked Dr. Sexton to order a PICC line and ID consult which he was in agreement with. I dropped off the short-term disability paperwork with the and explained our current status. All questions were answered. There were very appreciative. We will see how he does over the next 48 hours. If he is improving, then we will continue with the current management. If he is getting worse, then we'll consider reexploration of the abdomen. I do not believe that he has a intestinal leak based on lack of tenderness in the area of the anastomosis, lack of inflammatory change in the area of the anastomosis, and continued bowel function. Will start on clear liquid diet for comfort. Please call with questions.
--- NOTE | 2019-10-10 14:41 | Consultation ---
History of Present Illness - Reason for Consult Consult date: 10/10/19 - History of Present Illness 54 yo M PMhx CAD, COPD, recent complicated course of bowel perforation after a colonoscopy. In the 10 days prior to his admission he had 3 abdominal surgeries. he was discharged home at that time only to re-present after one day. he notes that at home after coughing that some of his intestines protruded through the abdominal wound. Aside from associated pain at the site, he denies fevers, sw eats, chills. he underwent an exploratory laparotomy and lavage on 10/05, and it was noted yesterday that there was feculent material in the drain in his abdomen. He notes being told as a child to not take penicillin as "it could kill him". He has been afebrile since admission, he is currently receiving cefepime and metronidazole. Cultures are pending. White count is 15. Imaging personally reviewed: CTAP: free fluid in abdomen Review of systems: Bold if positive; otherwise negative GENERAL: fever, chills, weight loss, fatigue, night sweats EYES: blurry vision, eye pain HENT: headache, hearing loss, sore throat, dysphagia, sinus pain CARDIO: chest pain, palpitations, orthopnea PULM: shortness of breath, wheezing, cough, sputum, hemoptysis GI: nausea, vomiting, diarrhea, abdominal pain, blood in stool : urinary frequency, urgency, dysuria, urethral discharge MSK: joint pain, back pain, swelling SKIN: rash, redness HEME: easy bruising, bleeding Past History Past Medical History: acute [place], CAD, COPD, hypertension, other (obesity) Past Surgical History: arthroscopy (knee), PTCA, bowel surgery (partial colon resection.) Social history: smoking (2ppd), alcohol abuse (2 beers/day) Family history: no significant family history Medications and Allergies Allergies Allergy/AdvReac Type Severity Reaction Status Date / Time Sulfa (Sulfonamide Allergy Severe Rash Verified 03/22/16 18:34 Antibiotics) oxytetracycline Allergy Unknown Verified 03/22/16 10:32 [From Terramycin] oxytetracycline HCl Allergy Unknown Verified 03/22/16 10:32 [From Terramycin] Penicillins AdvReac Severe Shortness Verified 03/22/16 18:34 of Breath Home Medications Medication Instructions Recorded Confirmed Last Taken Type ALBUTEROL Inhaler (OR & NICU) 2 puff IH QID PRN #1 inhalation 08/17/18 10/06/19 Unknown Rx [ProAir HFA Inhaler] Arformoterol Nebu [Brovana Nebu] 15 mcg IH Q12HRT ml 08/17/18 10/06/19 10/05/19 Rx Benzonatate [Tessalon Perles] 100 mg PO Q8HR capsule 08/17/18 10/06/19 10/03/19 21:00 Rx Citalopram [Celexa] 20 mg PO QDAY #30 tablet 08/17/18 10/06/19 10/04/19 Rx Ipratropium/Albuterol Sulfate 1 ampul IH Q6HRT #30 ampul.neb 08/17/18 10/06/19 10/05/19 21:00 Rx [DUONEB *Not for PRN Use*] Lisinopril [Zestril TAB] 20 mg PO DAILY #30 tablet 08/17/18 10/06/19 10/05/19 08:00 Rx Metoprolol [Lopressor TAB] 100 mg PO BID #60 tablet 08/17/18 10/06/19 10/05/19 08:00 Rx Pravastatin [Pravachol] 40 mg PO QHS #30 tablet 08/17/18 10/06/19 10/04/19 22:00 Rx Symbicort 160-4.5 Mcg Inhaler 1 puff INHALATION BID #30 08/17/18 10/06/19 09/05/19 23:00 Rx Acetaminophen [Acetaminophen TAB] 2 tab PO Q4H PRN #30 tablet 10/03/19 10/06/19 Unknown Rx Bisacodyl [Dulcolax suppos] 10 mg [place] QDAY PRN #4 supp.rect 10/03/19 10/06/19 Unknown Rx Pantoprazole [Protonix TAB] 40 mg PO BID #60 tablet 10/03/19 10/06/19 10/04/19 21:00 Rx Sucralfate [Carafate] 1 gm PO Q6HR 30 Days oral.liqd 10/03/19 10/06/19 10/05/19 08:00 Rx levoFLOXacin [Levaquin TAB] 750 mg PO QDAY #2 tablet 1110/06/19 10/04/19 08:00 Rx oxyCODONE /ACETAMINOPHEN [Percocet 1 tab PO Q4H PRN #26 tablet 10/03/19 10/06/19 10/04/19 21:00 Rx 5/325 mg] Active Meds: Active Medications Acetaminophen (Tylenol) 650 mg PO Q4H PRN PRN Reason: Pain MILD(1-3)/Fever >100.5/ROMANO Last Admin: 10/09/19 05:09 Dose: 650 mg Documented by: Albuterol (Proventil) 2.5 mg IH Q4HRT PRN PRN Reason: Shortness Of Breath Albuterol/Ipratropium (Duoneb *Not For Prn Use*) 1 ampul IH Q6HRT [facility] Last Admin: 10/10/19 09:38 Dose: 1 ampul Documented by: Arformoterol Tartrate (Brovana Nebu) 15 mcg IH Q12HRT [facility] Last Admin: 10/10/19 09:39 Dose: 15 mcg Documented by: Benzonatate (Tessalon Perles) 100 mg PO Q8HR [facility] Last Admin: 10/10/19 13:57 Dose: 100 mg Documented by: Budesonide (Pulmicort) 0.5 mg IH Q12HRT [facility] Last Admin: 10/10/19 09:38 Dose: 0.5 mg Documented by: Citalopram Hydrobromide (Celexa) 20 mg PO QDAY [facility] Last Admin: 10/10/19 09:42 Dose: 20 mg Documented by: Docusate Sodium (Colace) 100 mg PO BID [facility] Last Admin: 10/10/19 09:42 Dose: 100 mg Documented by: Hydromorphone HCl (Dilaudid) 0.5 mg IV Q3H PRN PRN Reason: Pain , Severe (7-10) Last Admin: 10/10/19 12:40 Dose: 0.5 mg Documented by: Sodium Chloride (Nacl 0.9% 1000 Ml) 1,000 mls @ 75 mls/hr IV DIRECT [place] Metronidazole (Flagyl 500 Mg/100 Ml) 500 mg in 100 mls @ 100 mls/hr IV Q8HR [facility]; Protocol Last Admin: 10/10/19 13:46 Dose: 100 mls/hr Documented by: Cefepime HCl (Cefepime/Ns 2 Gm/100 Ml) 2 gm in 100 mls @ 200 mls/hr IV Q12HR [facility]; Protocol Metoprolol Tartrate (Metoprolol) 100 mg PO BID [facility] Last Admin: 10/10/19 09:42 Dose: 100 mg Documented by: Montelukast Sodium (Singulair) 10 mg PO QHS [facility] Last Admin: 10/09/19 21:25 Dose: 10 mg Documented by: Ondansetron HCl (Zofran) 4 mg IV Q3H PRN PRN Reason: Nausea And Vomiting Oxycodone/Acetaminophen (Percocet 5/325) 2 tab PO Q6H PRN PRN Reason: Pain, Moderate (4-6) Last Admin: 10/10/19 04:48 Dose: 2 tab Documented by: Pantoprazole Sodium (Protonix) 40 mg PO BID [facility] Last Admin: 10/10/19 09:41 Dose: 40 mg Documented by: Polyethylene Glycol (Miralax [id number]) 17 gm PO BID PRN PRN Reason: Constipation Last Admin: 10/08/19 21:05 Dose: 17 gm Documented by: Psyllium Hydrophilic Mucilloid (Metamucil) 1 each PO QDAY [facility] Last Admin: 10/10/19 09:42 Dose: 1 each Documented by: Senna (Senokot) 8.6 mg PO Q12HR [facility] Last Admin: 10/10/19 09:41 Dose: 8.6 mg Documented by: Sodium Chloride (Sodium Chloride Flush Syringe 10 Ml) 10 ml IV BID [facility] Last Admin: 10/10/19 09:43 Dose: 10 ml Documented by: Sodium Chloride (Sodium Chloride Flush Syringe 10 Ml) 10 ml IV PRN PRN PRN Reason: LINE FLUSH Physical Examination - Physical Exam Narrative exam: General Normal appearance, well developed, no acute distress Eyes - PERRLA, EOM intact ENT - Moist mucous membranes, no lymphadenopathy Neck - No noticeable or palpable swelling, redness or rash around throat or on face Lymph Nodes - No lymphadenopathy Cardiovascular - RRR no m/r/g, no JVD, no carotid bruits Lungs - Clear to auscultation, no use of accessory muscles, no crackles or wheezes. Skin - No rashes, skin warm and dry, no erythematous areas Abdomen - Normal bowel sounds, abdomen soft and nontender. 2x drains in place./ Extremities - No edema, cyanosis or clubbing Musculoskeletal - 5/5 strength, normal range of motion, no swollen or erythematous joints. Neurological Alert and oriented x 3, CN 2-12 grossly intact. - Constitutional Vitals: Vital Signs Temp Pulse Resp BP Pulse Ox 98.4 F 100 H 18 128/69 92 10/10/19 13:24 10/10/19 13:24 10/10/19 13:24 10/10/19 13:24 10/10/19 13:24 Temperature -Last 24 Hours Temperature 98.4 F Temperature 97.3 F Temperature 98.7 F Temperature 98.3 F Temperature 97.6 F Temperature 97.5 F Results - Labs CBC & Chem 7: 10/10/19 05:30 10/10/19 08:44 Labs: Abnormal lab results 10/09/19 10/10/19 10/10/19 Range/Units 17:23 05:30 05:30 WBC 14.6 H (4.5-11.0) K/mm3 Hgb 11.1 L (11.8-15.2) gm/dl Hct 33.5 L (35.5-45.6) % Plt Count 527 H (140-440) K/mm3 Sodium 130 L D (137-145) mmol/L Potassium 5.1 H (3.6-5.0) mmol/L Chloride 90.0 L 91.0 L (98-107) mmol/L Carbon Dioxide 20 L 20 L (22-30) mmol/L BUN 27 H 35 H (9-20) mg/dL Creatinine 1.9 H 2.0 H (0.8-1.5) mg/dL Glucose 104 H (75-100) mg/dL POC Glucose (70-105) 10/10/19 10/10/19 Range/Units 08:33 08:44 WBC (4.5-11.0) K/mm3 Hgb (11.8-15.2) gm/dl Hct (35.5-45.6) % Plt Count (140-440) K/mm3 Sodium (137-145) mmol/L Potassium (3.6-5.0) mmol/L Chloride (98-107) mmol/L Carbon Dioxide (22-30) mmol/L BUN (9-20) mg/dL Creatinine (0.8-1.5) mg/dL Glucose 113 H (75-100) mg/dL POC Glucose 117 H (70-105) Assessment and Plan Cultures Wound culture 10/10/19 pending Assessment: 54 yo M PMhx CAD, COPD, recent complicated course of bowel perforation after a colonoscopy admitted after surgical site herniation. Now with possibly infected fluid culture 1. Acute sepsis - present with leukocytosis and tachycardia. Most likely secondary to fluid collection in the abdomen 2. Post-surgical fluid collection - cultures are pending. I would prefer to change him to Zosyn at the present time, however his allergy history precludes that for the most part. Would continue cefepime and Flagyl as he is afebrile and stable at the present time. Can tailor antibiotics pending culture results, or c ontinue present regimen if cultures are negative. 3. COPD 4. Penicillin allergy - likely not a true allergy, or at least he may have grown out of it. No need to test at present time, but culture results may require that in the near future. Recs: - continue cefepime and metronidazole - follow up cultures Thank you for the consult, we will continue to follow. [facility] ([facility] M: [phone] O: [phone] F: [phone]
--- NOTE | 2019-10-10 17:03 | Consultation ---
History of Present Illness - Reason for Consult Consult date: 10/10/19 acute renal failure - History of Present Illness This is a 54 year old male who presents to the hospital on 10/05/19 for evaluation of sharp pain to his abdomen after coughing and noticing that part of his intestine appears to have came through his incision site. Patient has underwent a partial colon resection after a perforation during a colonoscopy. On admission patient's serum creatinine was 0.7 which jelly to 2.0 today. We are being consulted for management of this patient's Acute Renal Failure. Past History Past Medical History: acute [place], CAD, COPD, hypertension, other (obesity) Past Surgical History: arthroscopy (knee), PTCA, bowel surgery (partial colon resection.) Social history: smoking (2ppd), alcohol abuse (2 beers/day) Family history: no significant family history Medications and Allergies Allergies Allergy/AdvReac Type Severity Reaction Status Date / Time Sulfa (Sulfonamide Allergy Severe Rash Verified 03/22/16 18:34 Antibiotics) oxytetracycline Allergy Unknown Verified 03/22/16 10:32 [From Terramycin] oxytetracycline HCl Allergy Unknown Verified 03/22/16 10:32 [From Terramycin] Penicillins AdvReac Severe Shortness Verified 03/22/16 18:34 of Breath Home Medications Medication Instructions Recorded Confirmed Last Taken Type ALBUTEROL Inhaler (OR & NICU) 2 puff IH QID PRN #1 inhalation 08/17/18 10/06/19 Unknown Rx [ProAir HFA Inhaler] Arformoterol Nebu [Brovana Nebu] 15 mcg IH Q12HRT ml 08/17/18 10/06/19 10/05/19 Rx Benzonatate [Tessalon Perles] 100 mg PO Q8HR capsule 08/17/18 10/06/19 10/03/19 21:00 Rx Citalopram [Celexa] 20 mg PO QDAY #30 tablet 08/17/18 10/06/19 10/04/19 Rx Ipratropium/Albuterol Sulfate 1 ampul IH Q6HRT #30 ampul.neb 08/17/18 10/06/19 10/05/19 21:00 Rx [DUONEB *Not for PRN Use*] Lisinopril [Zestril TAB] 20 mg PO DAILY #30 tablet 08/17/18 10/06/19 10/05/19 08:00 Rx Metoprolol [Lopressor TAB] 100 mg PO BID #60 tablet 08/17/18 10/06/19 10/05/19 08:00 Rx Pravastatin [Pravachol] 40 mg PO QHS #30 tablet 08/17/18 10/06/19 10/04/19 22:00 Rx Symbicort 160-4.5 Mcg Inhaler 1 puff INHALATION BID #30 08/17/18 10/06/19 09/05/19 23:00 Rx Acetaminophen [Acetaminophen TAB] 2 tab PO Q4H PRN #30 tablet 10/03/19 10/06/19 Unknown Rx Bisacodyl [Dulcolax suppos] 10 mg [place] QDAY PRN #4 supp.rect 10/03/19 10/06/19 Unknown Rx Pantoprazole [Protonix TAB] 40 mg PO BID #60 tablet 10/03/19 10/06/19 10/04/19 21:00 Rx Sucralfate [Carafate] 1 gm PO Q6HR 30 Days oral.liqd 10/03/19 10/06/19 10/05/19 08:00 Rx levoFLOXacin [Levaquin TAB] 750 mg PO QDAY #2 tablet 10/03/19 10/06/19 10/04/19 08:00 Rx oxyCODONE /ACETAMINOPHEN [Percocet 1 tab PO Q4H PRN #26 tablet 10/03/19 10/06/19 10/04/19 21:00 Rx 5/325 mg] Active Meds: Active Medications Acetaminophen (Tylenol) 650 mg PO Q4H PRN PRN Reason: Pain MILD(1-3)/Fever >100.5/ROMANO Last Admin: 10/09/19 05:09 Dose: 650 mg Documented by: Albuterol (Proventil) 2.5 mg IH Q4HRT PRN PRN Reason: Shortness Of Breath Albuterol/Ipratropium (Duoneb *Not For Prn Use*) 1 ampul IH Q6HRT [facility] Last Admin: 10/10/19 16:15 Dose: 1 ampul Documented by: Arformoterol Tartrate (Brovana Nebu) 15 mcg IH Q12HRT [facility] Last Admin: 10/10/19 09:39 Dose: 15 mcg Documented by: Benzonatate (Tessalon Perles) 100 mg PO Q8HR [facility] Last Admin: 10/10/19 13:57 Dose: 100 mg Documented by: Budesonide (Pulmicort) 0.5 mg IH Q12HRT [facility] Last Admin: 10/10/19 09:38 Dose: 0.5 mg Documented by: Citalopram Hydrobromide (Celexa) 20 mg PO QDAY [facility] Last Admin: 10/10/19 09:42 Dose: 20 mg Documented by: Docusate Sodium (Colace) 100 mg PO BID [facility] Last Admin: 10/10/19 09:42 Dose: 100 mg Documented by: Hydromorphone HCl (Dilaudid) 0.5 mg IV Q3H PRN PRN Reason: Pain , Severe (7-10) Last Admin: 10/10/19 12:40 Dose: 0.5 mg Documented by: Sodium Chloride (Nacl 0.9% 1000 Ml) 1,000 mls @ 75 mls/hr IV DIRECT [facility] Metronidazole (Flagyl 500 Mg/100 Ml) 500 mg in 100 mls @ 100 mls/hr IV Q8HR [facility]; Protocol Last Admin: 10/10/19 13:46 Dose: 100 mls/hr Documented by: Cefepime HCl (Cefepime/Ns 2 Gm/100 Ml) 2 gm in 100 mls @ 200 mls/hr IV Q12HR [facility]; Protocol Metoprolol Tartrate (Metoprolol) 100 mg PO BID [facility] Last Admin: 10/10/19 09:42 Dose: 100 mg Documented by: Montelukast Sodium (Singulair) 10 mg PO QHS [facility] Last Admin: 10/09/19 21:25 Dose: 10 mg Documented by: Ondansetron HCl (Zofran) 4 mg IV Q3H PRN PRN Reason: Nausea And Vomiting Oxycodone/Acetaminophen (Percocet 5/325) 2 tab PO Q6H PRN PRN Reason: Pain, Moderate (4-6) Last Admin: 10/10/19 04:48 Dose: 2 tab Documented by: Pantoprazole Sodium (Protonix) 40 mg PO BID [facility] Last Admin: 10/10/19 09:41 Dose: 40 mg Documented by: Polyethylene Glycol (Miralax [id number]) 17 gm PO BID PRN PRN Reason: Constipation Last Admin: 10/08/19 21:05 Dose: 17 gm Documented by: Psyllium Hydrophilic Mucilloid (Metamucil) 1 each PO QDAY [facility] Last Admin: 10/10/19 09:42 Dose: 1 each Documented by: Senna (Senokot) 8.6 mg PO Q12HR [facility] Last Admin: 10/10/19 09:41 Dose: 8.6 mg Documented by: Sodium Chloride (Sodium Chloride Flush Syringe 10 Ml) 10 ml IV BID [facility] Last Admin: 10/10/19 09:43 Dose: 10 ml Documented by: Sodium Chloride (Sodium Chloride Flush Syringe 10 Ml) 10 ml IV PRN PRN PRN Reason: LINE FLUSH Review of Systems Constitutional: fatigue Ears, nose, mouth and throat: no ear pain, no tinnitis, no decreased hearing, no nose pain, no nasal congestion, no nasal discharge, no sinus pressure Cardiovascular: shortness of breath, no chest pain, no orthopnea, no palpitations, no rapid/irregular heart beat, no edema, no syncope, no lighth eadedness Respiratory: shortness of breath, no cough with sputum, no excessive sputum, no hemoptysis, no dyspnea on exertion Gastrointestinal: abdominal pain, no nausea, no vomiting, no diarrhea, no constipation Genitourinary Male: no hematuria, no flank pain, no discharge, no urinary frequency, no urinary hesitancy, no nocturia Rectal: no incontinence, no bleeding Musculoskeletal: no neck pain, no shooting arm pain, no arm numbness/tingling, no low back pain, no shooting leg pain Integumentary: no rash, no pruritis, no redness, no sores, no wounds Neurological: weakness, no transient paralysis, no paralysis, no parathesias, no numbness, no tingling, no seizures, no syncope, no tremors Psychiatric: no anxiety, no memory loss, no change in sleep habits, no sleep disturbances, no insomnia, no hypersomnia, no change in appetite Endocrine: no cold intolerance, no heat intolerance, no polyphagia, no excessive thirst, no polydipsia, no polyuria Exam - Vital Signs Vital signs: Vital Signs Temp Pulse Resp BP Pulse Ox 97.4 F L 72 18 124/60 95 10/05/19 11:09 10/05/19 11:09 10/05/19 11:09 10/05/19 11:09 10/05/19 11:09 - General Appearance General appearance: well-developed, appears stated age, fatigue EENT: ATNC, PERRL, hearing intact, vision intact Neck: Present: neck supple, trachea midline Respiratory: Decreased Breath Sounds Heart: regular, S1S2 Gastrointestinal: Present: normoactive bowel sounds, other (Multiple abdominal wound drains noted) Integumentary: warm and dry Neurologic: alert and oriented x3 Musculoskeletal: Present: joint swelling Results - Lab Results 10/10/19 05:30 10/10/19 08:44 Most recent lab results Calcium 9.0 mg/dL (8.4-10.2) 10/10/19 05:30 Assessment and Plan Acute Renal Failure likely secondary to ischemic ATN due to Sepsis -Renal labs reviewed-serum creatinie 2.0 today. Admission serum creatinine was 0.7 -On NS@ 75 ml/hr -Obtain renal ultrasound -Obtain urine lytes and eosinophils -Obtain daily weights -Monitor I/O's -Monitor renal function closely Dehiscence of closure of fascia, superficial or muscular -S/P multiple abdominal surgeries -S/P CT guided placement of a 8 Fr APD drain in the RUQ and RLQ by IR today -Gen surgeon onboard Hypertension -Stable -Adjust regimen as needed
[2019-10-10] MEDS: MONTELUKAST 10 MG TAB PO SCH (21:46)
[2019-10-10] MEDS ORDERED: CEFEPIME/NS 2 GM/100 ML 2 GM/100 ML BAG IV SCH (22:00)
[2019-10-11] MEDS: HYDROmorphone 1 MG/1 ML INJ IV PRN ×6 (00:54→22:28)
[2019-10-11] MEDS: ONDANSETRON 4 MG/2 ML INJ IV PRN ×3 (00:54→18:20)
[2019-10-11] MEDS: IPRATROPIUM/ALBUTEROL SULFATE 3 ML AMPUL.NEB IH SCH ×4 (02:23→21:57)
[2019-10-11] MEDS: metroNIDAZOLE/NS 500 MG/100 ML 500 MG/100 ML BAG IV SCH ×3 (05:45→22:27)
[2019-10-11 06:28] LABS: Hematocrit 33.8 % (35.5-45.6); Hemoglobin 11.3 gm/dl (11.8-15.2); Mean Corpuscular HGB Conc 33 % (32-34); Mean Corpuscular Volume 92 fl (84-94); Platelet Count 543 K/mm3 (140-440); Red Blood Count 3.68 M/mm3 (3.65-5.03); Red Cell Distribution Width 15.3 % (13.2-15.2)
[2019-10-11] MEDS: BENZONATATE 100 MG CAP PO SCH ×3 (06:31→21:39)
[2019-10-11 06:56] LABS: Calcium 9.4 mg/dL (8.4-10.2)
[2019-10-11 07:02] LABS: Bacteria,Urine 1+ /HPF (Negative); Bilirubin,Urine NEG (Negative); Blood,Urine MOD (Negative); Color,Urine Amber (Yellow); Urobilinogen,Urine < 2.0 mg/dL (<2.0)
[2019-10-11 07:33] LABS: Creatinine,Urine 118.2 mg/dL (0.1-20.0); Protein/Creatinine Ratio,Urine 0.89
[2019-10-11 07:51] LABS: Creatinine,Urine 116.8 mg/dL (0.1-20.0)
--- NOTE | 2019-10-11 08:18 | Progress Note ---
Assessment and Plan Acute Renal Failure likely secondary to ischemic ATN due to Sepsis -improved Cr since yesterday, iwll d/c NS due to swelling in B LE - will check SPEP and UPEP for proteinuria -no hydronephrosis on CT -urine eosinophils are pending -Obtain daily weights -Monitor I/O's -Monitor renal function closely Dehiscence of closure of fascia, superficial or muscular -S/P multiple abdominal surgeries -S/P CT guided placement of a 8 Fr APD drain in the RUQ and RLQ by IR 10/10/19 -Gen surgeon onboard Hypertension -Stable -Adjust regimen as needed Tylor matta MD [phone] Subjective Date of service: 10/11/19 Principal diagnosis: acute renal failure Interval history: c/o swelling in LE this AM Objective - Vital Signs Vital signs: Vital Signs - 12hr 10/10/19 10/10/19 10/10/19 20:53 20:54 21:46 Temperature Pulse Rate 92 H Pulse Rate [ 98 H Anterior Bilateral Throughout] Respiratory Rate Respiratory 20 Rate [Anterior Bilateral Throughout] Blood Pressure 102/55 Blood Pressure [Left] O2 Sat by Pulse 95 Oximetry 10/10/19 10/11/19 10/11/19 22:18 01:15 02:23 Temperature 99.0 F Pulse Rate 92 H Pulse Rate [ 93 H Anterior Bilateral Throughout] Respiratory 17 16 Rate Respiratory 20 Rate [Anterior Bilateral Throughout] Blood Pressure Blood Pressure 107/55 [Left] O2 Sat by Pulse 93 93 Oximetry 10/11/19 10/11/19 03:17 03:20 Temperature 98.1 F Pulse Rate 56 L 96 H Pulse Rate [ Anterior Bilateral Throughout] Respiratory 17 Rate Respiratory Rate [Anterior Bilateral Throughout] Blood Pressure Blood Pressure 101/50 [Left] O2 Sat by Pulse 93 Oximetry - General Appearance General appearance: well-developed, well-nourished, obese EENT: ATNC, PERRL, mucous membranes moist Neck: no JVD, no carotid bruit Respiratory: Present: Clear to Ascultation, Decreased Breath Sounds Cardiology: regular, S1S2 Gastrointestinal: normoactive bowel sounds, no tenderness, no distended, obese Integumentary: no rash, warm and dry Neurologic: no focal deficit, no asterixis, alert and oriented x3 Musculoskeletal: other (2+ pitting edema in BLE) Psychiatric: mood/affect appropriate, cooperative - Lab 10/11/19 05:41 10/11/19 05:41 Most recent lab results Calcium 9.4 mg/dL (8.4-10.2) 10/11/19 05:41 Phosphorus 4.90 mg/dL (2.5-4.5) H 10/11/19 05:41 Urine Creatinine 116.8 mg/dL (0.1-20.0) H 10/11/19 06:23 Urine Creatinine 118.2 mg/dL (0.1-20.0) H 10/11/19 06:23 Urine Sodium 14 mmol/L 10/11/19 06:23 Urine Total Protein 104 mg/dL (5-11.8) H 10/11/19 06:23 Urine Total Protein 105 mg/dL (5-11.8) H 10/11/19 06:23 Medications & Allergies - Medications Allergies/Adverse Reactions: Allergies Sulfa (Sulfonamide Antibiotics) Allergy (Severe, Verified 03/22/16 18:34) Rash oxytetracycline [From Terramycin] Allergy (Verified 03/22/16 10:32) Unknown oxytetracycline HCl [From Terramycin] Allergy (Verified 03/22/16 10:32) Unknown Penicillins Adverse Reaction (Severe, Verified 03/22/16 18:34) Shortness of Breath Home Medications: Home Medications Medication Instructions Recorded Confirmed Last Taken Type ALBUTEROL Inhaler (OR & NICU) 2 puff IH QID PRN #1 inhalation 08/17/18 10/06/19 Unknown Rx [ProAir HFA Inhaler] Arformoterol Nebu [Brovana Nebu] 15 mcg IH Q12HRT ml 08/17/18 10/06/19 10/05/19 Rx Benzonatate [Tessalon Perles] 100 mg PO Q8HR capsule 08/17/18 10/06/19 10/03/19 21:00 Rx Citalopram [Celexa] 20 mg PO QDAY #30 tablet 08/17/18 10/06/19 10/04/19 Rx Ipratropium/Albuterol Sulfate 1 ampul IH Q6HRT #30 ampul.neb 08/17/18 10/06/19 10/05/19 21:00 Rx [DUONEB *Not for PRN Use*] Lisinopril [Zestril TAB] 20 mg PO DAILY #30 tablet 08/17/18 10/06/19 10/05/19 08:00 Rx Metoprolol [Lopressor TAB] 100 mg PO BID #60 tablet 08/17/18 10/06/19 10/05/19 08:00 Rx Pravastatin [Pravachol] 40 mg PO QHS #30 tablet 08/17/18 10/06/19 10/04/19 22:00 Rx Symbicort 160-4.5 Mcg Inhaler 1 puff INHALATION BID #30 08/17/18 10/06/19 09/05/19 23:00 Rx Acetaminophen [Acetaminophen TAB] 2 tab PO Q4H PRN #30 tablet 10/03/19 10/06/19 Unknown Rx Bisacodyl [Dulcolax suppos] 10 mg [place] QDAY PRN #4 supp.rect 10/03/19 10/06/19 Unknown Rx Pantoprazole [Protonix TAB] 40 mg PO BID #60 tablet 10/03/19 10/06/19 10/04/19 21:00 Rx Sucralfate [Carafate] 1 gm PO Q6HR 30 Days oral.liqd 10/03/19 10/06/19 10/05/19 08:00 Rx levoFLOXacin [Levaquin TAB] 750 mg PO QDAY #2 tablet 10/03/19 10/06/19 10/04/19 08:00 Rx oxyCODONE /ACETAMINOPHEN [Percocet 1 tab PO Q4H PRN #26 tablet 10/03/19 10/06/19 10/04/19 21:00 Rx 5/325 mg] Active Medications: Generic Name Dose Route Start Last Admin Trade Name Freq PRN Reason Stop Dose Admin Acetaminophen 650 mg 10/05/19 21:22 10/09/19 05:09 Tylenol PO 650 mg Q4H PRN Administration Pain MILD(1-3)/Fever >100.5/ROMANO Albuterol 2.5 mg 10/05/19 21:36 Proventil IH Q4HRT PRN Shortness Of Breath Albuterol/Ipratropium 1 ampul 10/06/19 02:00 10/11/19 02:23 Duoneb *Not For Prn Use* IH 1 ampul Q6HRT [facility] Administration Arformoterol Tartrate 15 mcg 10/06/19 08:30 10/10/19 20:49 Brovana Nebu IH 15 mcg Q12HRT [facility] Administration Benzonatate 100 mg 10/09/19 14:00 10/11/19 06:31 Tessalon Perles PO 100 mg Q8HR [facility] Administration Budesonide 0.5 mg 10/07/19 12:20 10/10/19 20:49 Pulmicort IH 0.5 mg Q12HRT [facility] Administration Citalopram Hydrobromide 20 mg 10/06/19 10:00 10/10/19 09:42 Celexa PO 20 mg QDAY [facility] Administration Docusate Sodium 100 mg 10/08/19 22:00 10/10/19 21:46 Colace PO 100 mg BID [facility]NICA Administration Hydromorphone HCl 0.5 mg 10/05/19 21:22 10/11/19 05:46 Dilaudid IV 0.5 mg Q3H PRN Administration Pain , Severe (7-10) Metronidazole 500 mg in 100 mls @ 100 mls/hr 10/10/19 14:00 10/11/19 05:45 Flagyl 500 Mg/100 Ml IV 100 mls/hr Q8HR [facility] Administration Protocol Cefepime HCl 2 gm in 100 mls @ 200 mls/hr 10/11/19 14:00 Cefepime/Ns 2 Gm/100 Ml IV Q8HR [facility] Protocol Metoprolol Tartrate 100 mg 10/06/19 10:00 10/10/19 21:46 Metoprolol PO 100 mg BID [facility]ICA Administration Montelukast Sodium 10 mg 10/09/19 22:00 10/10/19 21:46 Singulair PO 10 mg QHS [facility] Administration Ondansetron HCl 4 mg 10/05/19 21:22 10/11/19 00:54 Zofran IV 4 mg Q3H PRN Administration Nausea And Vomiting Oxycodone/Acetaminophen 2 tab 10/06/19 12:26 10/10/19 04:48 Percocet 5/325 PO 2 tab Q6H PRN Administration Pain, Moderate (4-6) Pantoprazole Sodium 40 mg 10/06/19 10:00 10/10/19 21:46 Protonix PO 40 mg BID [facility] Administration Polyethylene Glycol 17 gm 10/08/19 20:05 10/08/19 21:05 Miralax 3350 PO 17 gm BID PRN Administration Constipation Psyllium Hydrophilic Mucilloid 1 each 10/09/19 10:00 10/10/19 09:42 Metamucil PO 1 each QDAY [facility] Administration Senna 8.6 mg 10/10/19 10:00 10/10/19 21:46 Senokot PO 8.6 mg Q12HR [facility] Administration Sodium Chloride 10 ml 10/05/19 22:00 10/10/19 21:20 Sodium Chloride Flush Syringe 10 Ml IV 10 ml BID [facility] Administration Sodium Chloride 10 ml 10/05/19 21:22 Sodium Chloride Flush Syringe 10 Ml IV PRN PRN LINE FLUSH
[2019-10-11] MEDS: PANTOPRAZOLE 40 MG TAB PO SCH ×2 (09:40→21:41)
[2019-10-11] MEDS: DOCUSATE SODIUM 100 MG CAP PO SCH (09:40)
[2019-10-11] MEDS: SENNOSIDES 8.6 MG TAB PO SCH (09:40)
[2019-10-11] MEDS: PSYLLIUM SEED (WITH SUGAR) 3.4 GM PACKET PO SCH (09:40)
[2019-10-11] MEDS: CITALOPRAM 20 MG TAB PO SCH (09:40)
--- NOTE | 2019-10-11 09:52 | Progress Note ---
Assessment and Plan - Patient Problems (1) Physical deconditioning Current Visit: Yes Status: Acute (2) Wound dehiscence Current Visit: Yes Status: Acute (3) COPD (chronic obstructive pulmonary disease) Current Visit: Yes Status: Chronic Qualifiers: COPD type: unspecified COPD Qualified Code(s): J44.9 - Chronic obstructive pulmonary disease, unspecified (4) Acute exacerbation of chronic obstructive pulmonary disease (COPD) Current Visit: No Status: Acute (5) CAP (community acquired pneumonia) Current Visit: No Status: Acute Subjective Principal diagnosis: acute renal failure Interval history: feels better Objective Vital Signs - 12hr 10/10/19 10/11/19 10/11/19 22:18 01:15 02:23 Temperature 99.0 F Pulse Rate 92 H Pulse Rate [ 93 H Anterior Bilateral Throughout] Respiratory 17 16 Rate Respiratory 20 Rate [Anterior Bilateral Throughout] Blood Pressure 107/55 [Left] O2 Sat by Pulse 93 93 Oximetry 10/11/19 10/11/19 03:17 03:20 Temperature 98.1 F Pulse Rate 56 L 96 H Pulse Rate [ Anterior Bilateral Throughout] Respiratory 17 Rate Respiratory Rate [Anterior Bilateral Throughout] Blood Pressure 101/50 [Left] O2 Sat by Pulse 93 Oximetry Constitutional: no acute distress, alert Eyes: non-icteric ENT: oropharynx moist Neck: supple Effort: normal Ascultation: Bilateral: diminished breath sounds Cardiovascular: regular rate and rhythm Gastrointestinal: normoactive bowel sounds Integumentary: normal Extremities: no cyanosis Neurologic: normal mental status, non-focal exam Psychiatric: mood appropriate, affect normal CBC and BMP: 10/11/19 05:41 10/11/19 05:41 Abnormal lab findings: Abnormal Labs 10/06/19 10/06/19 10/07/19 05:36 05:36 05:54 WBC 21.8 H 21.5 H RBC 3.55 L Hgb 10.9 L Hct 32.7 L RDW Plt Count Seg Neuts % (Manual) 91.0 H Lymphocytes % (Manual) 2.0 L Seg Neutrophils # Man 19.8 H Lymphocytes # (Manual) 0.4 L Monocytes # (Manual) 1.1 H Sodium 135 L Potassium Chloride 95.9 L Carbon Dioxide BUN Creatinine 0.7 L Glucose POC Glucose Calcium Phosphorus Total Protein 5.7 L Albumin 2.5 L Urine Creatinine Urine Total Protein 10/07/19 10/09/19 10/09/19 05:54 10:52 10:52 WBC 16.6 H RBC Hgb Hct RDW Plt Count 498 H Seg Neuts % (Manual) 93.0 H Lymphocytes % (Manual) 5.0 L Seg Neutrophils # Man 15.4 H Lymphocytes # (Manual) 0.8 L Monocytes # (Manual) Sodium Potassium Chloride 97.9 L Carbon Dioxide 20 L D BUN 23 H Creatinine 1.7 H D Glucose 109 H POC Glucose Calcium 8.1 L Phosphorus Total Protein Albumin Urine Creatinine Urine Total Protein 10/09/19 10/10/19 10/10/19 17:23 05:30 05:30 WBC 14.6 H RBC Hgb 11.1 L Hct 33.5 L RDW Plt Count 527 H Seg Neuts % (Manual) Lymphocytes % (Manual) Seg Neutrophils # Man Lymphocytes # (Manual) Monocytes # (Manual) Sodium 130 L D Potassium 5.1 H Chloride 90.0 L 91.0 L Carbon Dioxide 20 L 20 L BUN 27 H 35 H Creatinine 1.9 H 2.0 H Glucose 104 H POC Glucose Calcium Phosphorus Total Protein Albumin Urine Creatinine Urine Total Protein 10/10/19 10/10/19 10/11/19 08:33 08:44 05:41 WBC 13.2 H RBC Hgb 11.3 L Hct 33.8 L RDW 15.3 H Plt Count 543 H Seg Neuts % (Manual) Lymphocytes % (Manual) Seg Neutrophils # Man Lymphocytes # (Manual) Monocytes # (Manual) Sodium Potassium Chloride Carbon Dioxide BUN Creatinine Glucose 113 H POC Glucose 117 H Calcium Phosphorus Total Protein Albumin Urine Creatinine Urine Total Protein 10/11/19 10/11/19 10/11/19 05:41 06:23 06:23 WBC RBC Hgb Hct RDW Plt Count Seg Neuts % (Manual) Lymphocytes % (Manual) Seg Neutrophils # Man Lymphocytes # (Manual) Monocytes # (Manual) Sodium 134 L Potassium Chloride 96.3 L Carbon Dioxide BUN 37 H Creatinine Glucose 58 L POC Glucose Calcium Phosphorus 4.90 H Total Protein Albumin Urine Creatinine 118.2 H 116.8 H Urine Total Protein 105 H 104 H Chest x-ray: report reviewed, image reviewed CT scan - chest: image reviewed
[2019-10-11] MEDS: METOPROLOL TARTRATE 100 MG TAB PO SCH ×2 (10:00→21:40)
--- NOTE | 2019-10-11 10:08 | Progress Note ---
Assessment and Plan Patient's drains working adequately. We'll defer primary management of patient's care to surgery. Subjective Date of service: 10/11/19 Principal diagnosis: acute renal failure Interval history: Patient with complex abdominal surgical history status post placement of 2 drains. He does complain of some pain at the drain insertion site as well as diffuse tenderness to his abdomen. The drains are putting out 120 mL's of feculent fluid overnight. The time of examination, the patient is sitting up in a chair. Taking sips of water. He is not yet passed flatus or had a bowel movement. Objective - Constitutional Vitals: Vital Signs - 12hr 10/10/19 10/11/19 10/11/19 22:18 01:15 02:23 Temperature 99.0 F Pulse Rate 92 H Pulse Rate [ 93 H Anterior Bilateral Throughout] Respiratory 17 16 Rate Respiratory 20 Rate [Anterior Bilateral Throughout] Blood Pressure 107/55 [Left] O2 Sat by Pulse 93 93 Oximetry 10/11/19 10/11/19 10/11/19 03:17 03:20 09:38 Temperature 98.1 F 97.8 F Pulse Rate 56 L 96 H 88 Pulse Rate [ Anterior Bilateral Throughout] Respiratory 17 17 Rate Respiratory Rate [Anterior Bilateral Throughout] Blood Pressure 101/50 100/48 [Left] O2 Sat by Pulse 93 92 Oximetry General appearance: Present: no acute distress - EENT Eyes: EOM intact ENT: hearing intact - Neck Neck: supple - Respiratory Respiratory effort: normal Extremity abnormal: edema - Gastrointestinal General gastrointestinal: Present: tender, distended Rectal Exam: deferred - Genitourinary Male genitourinary: deferred - Neurologic Neurologic: no focal deficits - Psychiatric Psychiatric: appropriate mood/affect, cooperative - Labs CBC & Chem 7: 10/11/19 05:41 10/11/19 05:41 Labs: Abnormal lab results 10/11/19 10/11/19 10/11/19 Range/Units 05:41 05:41 06:23 WBC 13.2 H (4.5-11.0) K/mm3 Hgb 11.3 L (11.8-15.2) gm/dl Hct 33.8 L (35.5-45.6) % RDW 15.3 H (13.2-15.2) % Plt Count 543 H (140-440) K/mm3 Sodium 134 L (137-145) mmol/L Chloride 96.3 L (98-107) mmol/L BUN 37 H (9-20) mg/dL Glucose 58 L (75-100) mg/dL Phosphorus 4.90 H (2.5-4.5) mg/dL Urine Creatinine 118.2 H (0.1-20.0) mg/dL Urine Total Protein 105 H (5-11.8) mg/dL 10/11/19 Range/Units 06:23 WBC (4.5-11.0) K/mm3 Hgb (11.8-15.2) gm/dl Hct (35.5-45.6) % RDW (13.2-15.2) % Plt Count (140-440) K/mm3 Sodium (137-145) mmol/L Chloride (98-107) mmol/L BUN (9-20) mg/dL Glucose (75-100) mg/dL Phosphorus (2.5-4.5) mg/dL Urine Creatinine 116.8 H (0.1-20.0) mg/dL Urine Total Protein 104 H (5-11.8) mg/dL Medications & Allergies - Medications Allergies/Adverse Reactions: Allergies Sulfa (Sulfonamide Antibiotics) Allergy (Severe, Verified 03/22/16 18:34) Rash oxytetracycline [From Terramycin] Allergy (Verified 03/22/16 10:32) Unknown oxytetracycline HCl [From Terramycin] Allergy (Verified 03/22/16 10:32) Unknown Penicillins Adverse Reaction (Severe, Verified 03/22/16 18:34) Shortness of Breath Home Medications: Home Medications Medication Instructions Recorded Confirmed Last Taken Type ALBUTEROL Inhaler (OR & NICU) 2 puff IH QID PRN #1 inhalation 08/17/18 10/06/19 Unknown Rx [ProAir HFA Inhaler] Arformoterol Nebu [Brovana Nebu] 15 mcg IH Q12HRT ml 08/17/18 10/06/19 10/05/19 Rx Benzonatate [Tessalon Perles] 100 mg PO Q8HR capsule 08/17/18 10/06/19 10/03/19 21:00 Rx Citalopram [Celexa] 20 mg PO QDAY #30 tablet 08/17/18 10/06/19 10/04/19 Rx Ipratropium/Albuterol Sulfate 1 ampul IH Q6HRT #30 ampul.neb 08/17/18 10/06/19 10/05/19 21:00 Rx [DUONEB *Not for PRN Use*] Lisinopril [Zestril TAB] 20 mg PO DAILY #30 tablet 08/17/18 10/06/19 10/05/19 08:00 Rx Metoprolol [Lopressor TAB] 100 mg PO BID #60 tablet 08/17/18 10/06/19 10/05/19 08:00 Rx Pravastatin [Pravachol] 40 mg PO QHS #30 tablet 08/17/18 10/06/19 10/04/19 22:00 Rx Symbicort 160-4.5 Mcg Inhaler 1 puff INHALATION BID #30 08/17/18 10/06/19 09/05/19 23:00 Rx Acetaminophen [Acetaminophen TAB] 2 tab PO Q4H PRN #30 tablet 10/03/19 10/06/19 Unknown Rx Bisacodyl [Dulcolax suppos] 10 mg [place] QDAY PRN #4 supp.rect 10/03/19 10/06/19 Unknown Rx Pantoprazole [Protonix TAB] 40 mg PO BID #60 tablet 10/03/19 10/06/19 10/04/19 21:00 Rx Sucralfate [Carafate] 1 gm PO Q6HR 30 Days oral.liqd 10/03/19 10/06/19 10/05/19 08:00 Rx levoFLOXacin [Levaquin TAB] 750 mg PO QDAY #2 tablet 10/03/19 10/06/19 10/04/19 08:00 Rx oxyCODONE /ACETAMINOPHEN [Percocet 1 tab PO Q4H PRN #26 tablet 10/03/19 10/06/19 10/04/19 21:00 Rx 5/325 mg] Active Medications: Generic Name Dose Route Start Last Admin Trade Name Freq PRN Reason Stop Dose Admin Acetaminophen 650 mg 10/05/19 21:22 10/09/19 05:09 Tylenol PO 650 mg Q4H PRN Administration Pain MILD(1-3)/Fever >100.5/ROMANO Albuterol 2.5 mg 10/05/19 21:36 Proventil IH Q4HRT PRN Shortness Of Breath Albuterol/Ipratropium 1 ampul 10/06/19 02:00 10/11/19 02:23 Duoneb *Not For Prn Use* IH 1 ampul Q6HRT [facility] Administration Arformoterol Tartrate 15 mcg 10/06/19 08:30 10/10/19 20:49 Brovana Nebu IH 15 mcg Q12HRT [facility] Administration Benzonatate 100 mg 10/09/19 14:00 10/11/19 06:31 Tessalon Perles PO 100 mg Q8HR [facility] Administration Budesonide 0.5 mg 10/07/19 12:20 10/10/19 20:49 Pulmicort IH 0.5 mg Q12HRT [facility] Administration Citalopram Hydrobromide 20 mg 10/06/19 10:00 10/11/19 09:40 Celexa PO 20 mg QDAY [facility] Administration Docusate Sodium 100 mg 10/08/19 22:00 10/11/19 09:40 Colace PO 100 mg BID [facility] Administration Hydromorphone HCl 0.5 mg 10/05/19 21:22 10/11/19 09:41 Dilaudid IV 0.5 mg Q3H PRN Administration Pain , Severe (7-10) Metronidazole 500 mg in 100 mls @ 100 mls/hr 10/10/19 14:00 10/11/19 05:45 Flagyl 500 Mg/100 Ml IV 100 mls/hr Q8HR [facility] Administration Protocol Cefepime HCl 2 gm in 100 mls @ 200 mls/hr 10/11/19 14:00 Cefepime/Ns 2 Gm/100 Ml IV Q8HR [facility] Protocol Metoprolol Tartrate 100 mg 10/06/19 10:00 10/10/19 21:46 Metoprolol PO 100 mg BID [facility]ICA Administration Montelukast Sodium 10 mg 10/09/19 22:00 10/10/19 21:46 Singulair PO 10 mg QHS [facility] Administration Ondansetron HCl 4 mg 10/05/19 21:22 10/11/19 09:41 Zofran IV 4 mg Q3H PRN Administration Nausea And Vomiting Oxycodone/Acetaminophen 2 tab 10/06/19 12:26 10/10/19 04:48 Percocet 5/325 PO 2 tab Q6H PRN Administration Pain, Moderate (4-6) Pantoprazole Sodium 40 mg 10/06/19 10:00 10/11/19 09:40 Protonix PO 40 mg BID [facility] Administration Polyethylene Glycol 17 gm 10/08/19 20:05 10/08/19 21:05 Miralax 3350 PO 17 gm BID PRN Administration Constipation Psyllium Hydrophilic Mucilloid 1 each 10/09/19 10:00 10/11/19 09:40 Metamucil PO 1 each QDAY [facility] Administration Senna 8.6 mg 10/10/19 10:00 10/11/19 09:40 Senokot PO 8.6 mg Q12HR [facility] Administration Sodium Chloride 10 ml 10/05/19 22:00 10/10/19 21:20 Sodium Chloride Flush Syringe 10 Ml IV 10 ml BID [facility] Administration Sodium Chloride 10 ml 10/05/19 21:22 Sodium Chloride Flush Syringe 10 Ml IV PRN PRN LINE FLUSH
[2019-10-11] MEDS: BUDESONIDE 0.5 MG/2 ML NEBU IH SCH ×2 (10:10→21:57)
[2019-10-11] MEDS: ARFORMOTEROL 15 MCG/2 ML NEBU IH SCH ×2 (10:10→21:57)
--- NOTE | 2019-10-11 11:33 | Progress Note ---
Assessment and Plan Assessment and plan: - Patient Problems (1) Dehiscence of closure of fascia, superficial or muscular Current Visit: Yes Status: Acute Plan to address problem: Patient status post surgical correction. Patient white count did go up to 21. Not sure if this is related. No fever. wound vac is in place concern of free air, although this can be from the recent surgery, CT guided placement of a 8 Fr APD drain in the RUQ, CT guided placement of a 8 Fr APD drain in the RLQ (2) Atypical chest pain: cardiac enzymes negative. cardiology following, awaiting Echo (3)Pulmonary consolidation vs atlalectasis Current Visit: Yes Status: Chronic Qualifiers: COPD type: unspecified COPD Qualified Code(s): J44.9 - Chronic obstructive pulmonary disease, unspecified Plan to address problem: Doing much better. Would discontinue continuous pulse ox so patient can become more active walking around. Pulmonary consolidation-will obtain Pulmonary consult Continue abx, for presumed Pneumonia, Not present on admission Encourage compliance with incentive spirometerY Discussed with Pulmonary likely all Atalectasis (4)Presume Acute sepsis -possible Aspiration Pneumonia. Considering pulmonary consolidation- ID consulted Input noted. NOT PRESENT ON ADMISSION (5) Acute kidney injury secondary to ATN Nephrology consult- They stopped the fluids, Renal function is improved. WORK UP still pending Avoid Nephrotoxic meds (6)HLD (hyperlipidemia) Current Visit: Yes Status: Chronic Qualifiers: Hyperlipidemia type: mixed hyperlipidemia Qualified Code(s): E78.2 - Mixed hyperlipidemia Plan to address problem: Patient lipids stable. Continue statin if needed. (6) HTN (hypertension) Current Visit: Yes Status: Chronic Qualifiers: Hypertension type: essential hypertension Qualified Code(s): I10 - Essential (primary) hypertension Plan to address problem: Patient continues to have optimal control blood pressure. Does have some lower extremity edema that needs to be addressed. (7) COPD (chronic obstructive pulmonary disease) Current Visit: No Status: Acute Qualifiers: COPD type: COPD with acute exacerbation Qualified Code(s): J44.1 - Chronic obstructive pulmonary disease with (acute) exacerbation (8) Edema of both lower extremities Current Visit: Yes Status: Acute Plan to address problem: Both lower extremities. Appears to be dependent edema patient has been in bed sits up at the side of bed gravity takes fluid down to the legs. Patient does have +4 pitting edema. Lasix was held Hypoalbuminemia secondary to surgery Acute blood loss anemia- expected: Monitor Peripheral Edema - lasix given Discussed with surgical team Continue PT/OT History Interval history: Patient seen and examined, improved respiration and ambulatory per staff. clinically improving, Drainage tube placed. Hospitalist Physical - Physical exam Narrative exam: General appearance: Present: No acute distress, well-nourished - EENT Eyes: Present: PERRL, EOM intact ENT: hearing intact, clear oral mucosa, dentition normal - Neck Neck: Present: supple, normal ROM - Respiratory Respiratory effort: normal, diminished left > right - Cardiovascular Rhythm: irregularly irregular Heart Sounds: Present: S1 & S2 - Extremities Extremities: no ischemia, pulses intact, pulses symmetrical, No edema, normal temperature, normal color Extremity abnormal: erythema - Abdominal General gastrointestinal: soft, other (postsurgical changes with binder . mild tender on right upper quandrant. wound vac, Binder in place, CT guided placement of a 8 Fr APD drain in the RUQ, CT guided placement of a 8 Fr APD drain in the RLQE With feculent material) - Integumentary Integumentary: Present: clear, warm, dry - Psychiatric Psychiatric: appropriate mood/affect, intact judgment & insight, agitated - Neurologic Neurologic: CNII-XII intact, moves all extremities - Constitutional Vitals: Temp Pulse Resp BP Pulse Ox 97.8 F 82 24 100/48 94 10/11/19 09:38 10/11/19 10:10 10/11/19 10:10 10/11/19 09:38 10/11/19 10:00 General appearance: Present: no acute distress Results - Labs CBC & Chem 7: 10/11/19 05:41 10/11/19 05:41 Labs: Laboratory Last Values WBC 13.2 K/mm3 (4.5-11.0) H 10/11/19 05:41 RBC 3.68 M/mm3 (3.65-5.03) 10/11/19 05:41 Hgb 11.3 gm/dl (11.8-15.2) L 10/11/19 05:41 Hct 33.8 % (35.5-45.6) L 10/11/19 05:41 MCV 92 fl (84-94) 10/11/19 05:41 MCH 31 pg (28-32) 10/11/19 05:41 MCHC 33 % (32-34) 10/11/19 05:41 RDW 15.3 % (13.2-15.2) H 10/11/19 05:41 Plt Count 543 K/mm3 (140-440) H 10/11/19 05:41 Add Manual Diff Complete 10/09/19 10:52 Total Counted 100 10/09/19 10:52 Seg Neutrophils % Paint Preparer 10/09/19 10:52 Seg Neuts % (Manual) 93.0 % (40.0-70.0) H 10/09/19 10:52 Band Neutrophils % 1.0 % 10/09/19 10:52 Lymphocytes % (Manual) 5.0 % (13.4-35.0) L 10/09/19 10:52 Reactive Lymphs % (Man) 0 % 10/09/19 10:52 Monocytes % (Manual) 1.0 % (0.0-7.3) 10/09/19 10:52 Eosinophils % (Manual) 0 % (0.0-4.3) 10/09/19 10:52 Basophils % (Manual) 0 % (0.0-1.8) 10/09/19 10:52 Metamyelocytes % 0 % 10/09/19 10:52 Myelocytes % 0 % 10/09/19 10:52 Promyelocytes % 0 % 10/09/19 10:52 Blast Cells % 0 % 10/09/19 10:52 Nucleated RBC % Not Reportable 10/09/19 10:52 Seg Neutrophils # Man 15.4 K/mm3 (1.8-7.7) H 10/09/19 10:52 Band Neutrophils # 0.2 K/mm3 10/09/19 10:52 Lymphocytes # (Manual) 0.8 K/mm3 (1.2-5.4) L 10/09/19 10:52 Abs React Lymphs (Man) 0.0 K/mm3 10/09/19 10:52 Monocytes # (Manual) 0.2 K/mm3 (0.0-0.8) 10/09/19 10:52 Eosinophils # (Manual) 0.0 K/mm3 (0.0-0.4) 10/09/19 10:52 Basophils # (Manual) 0.0 K/mm3 (0.0-0.1) 10/09/19 10:52 Metamyelocytes # 0.0 K/mm3 10/09/19 10:52 Myelocytes # 0.0 K/mm3 10/09/19 10:52 Promyelocytes # 0.0 K/mm3 10/09/19 10:52 Blast Cells # 0.0 K/mm3 10/09/19 10:52 WBC Morphology Not Reportable 10/09/19 10:52 Hypersegmented Neuts Not Reportable 10/09/19 10:52 Hyposegmented Neuts Not Reportable 10/09/19 10:52 Hypogranular Neuts Not Reportable 10/09/19 10:52 Smudge Cells Not Reportable 10/09/19 10:52 Toxic Granulation Not Reportable 10/09/19 10:52 Toxic Vacuolation Not Reportable 10/09/19 10:52 Dohle Bodies Not Reportable 10/09/19 10:52 Pelger-Huet Anomaly Not Reportable 10/09/19 10:52 Andres Rods Not Reportable 10/09/19 10:52 Platelet Estimate Consistent w auto 10/09/19 10:52 Clumped Platelets Not Reportable 10/09/19 10:52 Plt Clumps, EDTA Not Reportable 10/09/19 10:52 Large Platelets Rare 10/09/19 10:52 Giant Platelets Not Reportable 10/09/19 10:52 Platelet Satelliting Not Reportable 10/09/19 10:52 Plt Morphology Comment Not Reportable 10/09/19 10:52 RBC Morphology Normal 10/09/19 10:52 Dimorphic RBCs Not Reportable 10/09/19 10:52 Polychromasia Not Reportable 10/09/19 10:52 Hypochromasia Not Reportable 10/09/19 10:52 Poikilocytosis Not Reportable 10/09/19 10:52 Anisocytosis Not Reportable 10/09/19 10:52 Microcytosis Not Reportable 10/09/19 10:52 Macrocytosis Not Reportable 10/09/19 10:52 Spherocytes Not Reportable 10/09/19 10:52 Pappenheimer Bodies Not Reportable 10/09/19 10:52 Sickle Cells Not Reportable 10/09/19 10:52 Target Cells Not Reportable 10/09/19 10:52 Tear Drop Cells Not Reportable 10/09/19 10:52 Ovalocytes Not Reportable 10/09/19 10:52 Helmet Cells Not Reportable 10/09/19 10:52 [place] Bodies Not Reportable 10/09/19 10:52 [place] Rings Not Reportable 10/09/19 10:52 Bishnu Cells Not Reportable 10/09/19 10:52 Bite Cells Not Reportable 10/09/19 10:52 Crenated Cell Not Reportable 10/09/19 10:52 Elliptocytes Not Reportable 10/09/19 10:52 Acanthocytes (Spur) Not Reportable 10/09/19 10:52 Rouleaux Not Reportable 10/09/19 10:52 Hemoglobin C Crystals Not Reportable 10/09/19 10:52 Schistocytes Not Reportable 10/09/19 10:52 Malaria parasites Not Reportable 10/09/19 10:52 Toni Bodies Not Reportable 10/09/19 10:52 Hem Pathologist Commnt No 10/09/19 10:52 Sodium 134 mmol/L (137-145) L 10/11/19 05:41 Potassium 5.0 mmol/L (3.6-5.0) 10/11/19 05:41 Chloride 96.3 mmol/L (98-107) L 10/11/19 05:41 Carbon Dioxide 24 mmol/L (22-30) 10/11/19 05:41 Anion Gap 19 mmol/L 10/11/19 05:41 BUN 37 mg/dL (9-20) H 10/11/19 05:41 Creatinine 1.4 mg/dL (0.8-1.5) 10/11/19 05:41 Estimated GFR 52 ml/min 10/11/19 05:41 BUN/Creatinine Ratio 26 % 10/11/19 05:41 Glucose 58 mg/dL (75-100) L 10/11/19 05:41 POC Glucose 117 (70-105) H 10/10/19 08:33 Hemoglobin A1c 5.7 % (4-6) 10/06/19 05:36 Calcium 9.4 mg/dL (8.4-10.2) 10/11/19 05:41 Phosphorus 4.90 mg/dL (2.5-4.5) H 10/11/19 05:41 Total Bilirubin 0.40 mg/dL (0.1-1.2) 10/06/19 05:36 AST 22 units/L (5-40) 10/06/19 05:36 ALT 9 units/L (7-56) 10/06/19 05:36 Alkaline Phosphatase 78 units/L (35-129) 10/06/19 05:36 Troponin T < 0.010 ng/mL (0.00-0.029) 10/09/19 17:23 Total Protein 5.7 g/dL (6.3-8.2) L 10/06/19 05:36 Albumin 2.5 g/dL (3.9-5) L 10/06/19 05:36 Albumin/Globulin Ratio 0.8 % 10/06/19 05:36 Urine Color [place] (Yellow) 10/11/19 06:23 Urine Turbidity Cloudy (Clear) 10/11/19 06:23 Urine pH 5.0 (5.0-7.0) 10/11/19 06:23 Ur Specific [place] 1.018 (1.003-1.030) 10/11/19 06:23 Urine Protein 30 mg/dl mg/dL (Negative) 10/11/19 06:23 Urine Glucose (UA) Neg mg/dL (Negative) 10/11/19 06:23 Urine Ketones Neg mg/dL (Negative) 10/11/19 06:23 Urine Blood Mod (Negative) 10/11/19 06:23 Urine Nitrite Neg (Negative) 10/11/19 06:23 Urine Bilirubin Neg (Negative) 10/11/19 06:23 Urine Urobilinogen < 2.0 mg/dL (<2.0) 10/11/19 06:23 Ur Leukocyte Esterase Neg (Negative) 10/11/19 06:23 Urine WBC (Auto) 3.0 /HPF (0.0-6.0) 10/11/19 06:23 Urine RBC (Auto) 3.0 /HPF (0.0-6.0) 10/11/19 06:23 Urine Bacteria (Auto) 1+ /HPF (Negative) 10/11/19 06:23 Urine Eosinophils None seen (None Seen) 10/11/19 06:23 Urine Creatinine 116.8 mg/dL (0.1-20.0) H 10/11/19 06:23 Urine Creatinine 118.2 mg/dL (0.1-20.0) H 10/11/19 06:23 Protein/Creatinin Ratio 0.89 10/11/19 06:23 Urine Sodium 14 mmol/L 10/11/19 06:23 Urine Total Protein 104 mg/dL (5-11.8) H 10/11/19 06:23 Urine Total Protein 105 mg/dL (5-11.8) H 10/11/19 06:23 Active Medications - Current Medications Current Medications: Generic Name Dose Route Start Last Admin Trade Name Freq PRN Reason Stop Dose Admin Acetaminophen 650 mg 10/05/19 21:22 10/09/19 05:09 Tylenol PO 650 mg Q4H PRN Administration Pain MILD(1-3)/Fever >100.5/ROMANO Albuterol 2.5 mg 10/05/19 21:36 Proventil IH Q4HRT PRN Shortness Of Breath Albuterol/Ipratropium 1 ampul 10/06/19 02:00 10/11/19 10:11 Duoneb *Not For Prn Use* IH Not Given Q6HRT VERÓNICA Arformoterol Tartrate 15 mcg 10/06/19 08:30 10/11/19 10:10 Brovana Nebu IH 15 mcg Q12HRT VERÓNICA Administration Benzonatate 100 mg 10/09/19 14:00 10/11/19 06:31 Tessalon Perles PO 100 mg Q8HR VERÓNICA Administration Budesonide 0.5 mg 10/07/19 12:20 10/11/19 10:10 Pulmicort IH 0.5 mg Q12HRT VERÓNICA Administration Citalopram Hydrobromide 20 mg 10/06/19 10:00 10/11/19 09:40 Celexa PO 20 mg QDAY VERÓNICA Administration Docusate Sodium 100 mg 10/08/19 22:00 10/11/19 09:40 Colace PO 100 mg BID VERÓNICA Administration Hydromorphone HCl 0.5 mg 10/05/19 21:22 10/11/19 09:41 Dilaudid IV 0.5 mg Q3H PRN Administration Pain , Severe (7-10) Metronidazole 500 mg in 100 mls @ 100 mls/hr 10/10/19 14:00 10/11/19 05:45 Flagyl 500 Mg/100 Ml IV 100 mls/hr Q8HR VERÓNICA Administration Protocol Cefepime HCl 2 gm in 100 mls @ 200 mls/hr 10/11/19 14:00 Cefepime/Ns 2 Gm/100 Ml IV Q8HR VERÓNICA Protocol Metoprolol Tartrate 100 mg 10/06/19 10:00 10/10/19 21:46 Metoprolol PO 100 mg BID VERÓNICA Administration Montelukast Sodium 10 mg 10/09/19 22:00 10/10/19 21:46 Singulair PO 10 mg QHS VERÓNICA Administration Ondansetron HCl 4 mg 10/05/19 21:22 10/11/19 09:41 Zofran IV 4 mg Q3H PRN Administration Nausea And Vomiting Oxycodone/Acetaminophen 2 tab 10/06/19 12:26 10/10/19 04:48 Percocet 5/325 PO 2 tab Q6H PRN Administration Pain, Moderate (4-6) Pantoprazole Sodium 40 mg 10/06/19 10:00 10/11/19 09:40 Protonix PO 40 mg BID VERÓNICA Administration Polyethylene Glycol 17 gm 10/08/19 20:05 10/08/19 21:05 Miralax 3350 PO 17 gm BID PRN Administration Constipation Psyllium Hydrophilic Mucilloid 1 each 10/09/19 10:00 10/11/19 09:40 Metamucil PO 1 each QDAY VERÓNICA Administration Senna 8.6 mg 10/10/19 10:00 10/11/19 09:40 Senokot PO 8.6 mg Q12HR VERÓNICA Administration Sodium Chloride 10 ml 10/05/19 22:00 10/10/19 21:20 Sodium Chloride Flush Syringe 10 Ml IV 10 ml BID VERÓNICA Administration Sodium Chloride 10 ml 10/05/19 21:22 Sodium Chloride Flush Syringe 10 Ml IV PRN PRN LINE FLUSH Nutrition/Malnutrition Assess - Dietary Evaluation Nutrition/Malnutrition Findings: Nutrition Notes Start: 10/08/19 11:36 Freq: Status: Active Protocol: Document 10/08/19 11:36 LP (Rec: 10/08/19 11:41 LP [id number]) Nutrition Notes Need for Assessment generated from: MD Order Initial or Follow up Assessment Current Diagnosis COPD,Hypertension Other Pertinent Diagnosis AMI, Abdominal Fascial dishiscence S/P exp lap Current Diet cardiac Labs/Tests Reviewed Pertinent Medications Reviewed Height 6 ft Weight 127.006 kg [place] Body Weight (kg) 80.90 BMI 38.0 Weight Status Morbidly Obese Subjective/Other Information Consult for malnutrition. 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 Pt consumed 100% of breakfast this AM. Pt denies wt changes and there are no physical signs of malnutrition . Pt denies need for more food or supplement for protein. Burn Absent Trauma Absent GI Symptoms None Minimum of two criteria No physical signs of malnutrition #1 Nutrition Diagnosis Increased nutrient needs ( specify in comment below) Comments: Protein Etiology Sx As Evidenced by Signs and Symptoms Pt with multiple sx and exp lap Is patient on ventilator? No Is Patient Ambulatory and/or Out of Bed Yes REE-([facility]-ambulatory/OOB) [ [id number] NUTR.[id number]] Kcal/Kg value to use for calculation 15 Approximate Energy Requirements Using 1905 kcal/Kg Calculation Used for Recommendations Kcal/kg Additional Notes Protein needs are Nutrition Intervention Change Diet Order: Continue cardiac Goal #1 Continue meeting 80% of kcal or protein needs Anticipated Discharge Needs: Cardiac diet Revisit per MD consult or patient Sign Off request:
--- NOTE | 2019-10-11 11:53 | Progress Note ---
Subjective Date of service: 10/11/19 Principal diagnosis: acute renal failure Interval history: Assessment and Plan Severe abdominal pain s/p exploratory laparotomy, abdominal washout, closure of abdominal fascia with wound vac placement. Recent colon resection for bowel perforation following a colonoscopy Atypical chest pain chest CT reports left lower lobe pleural effusion with suspected left upper lobe pneumonia. troponins are normal Hx of NE/CAD PCI of the circumflex and second vessel POBA of the distal LAD occlusion. Left ventricle fraction 45-50%. Tobacco abuse COPD Hypertension Hyperlipidemia Plan CV stable at this time, no further workup intended. Objective Vital Signs Temp Pulse Pulse Pulse Resp Resp Resp 10/11/19 10:10 82 24 10/11/19 10:00 10/11/19 09:38 97.8 F 88 17 10/11/19 03:20 96 H 10/11/19 03:17 98.1 F 56 L 17 10/11/19 02:23 93 H 20 10/11/19 01:15 16 10/10/19 22:18 99.0 F 92 H 17 10/10/19 21:46 92 H 10/10/19 20:54 10/10/19 20:53 98 H 20 10/10/19 16:13 97.4 F L 100 H 20 10/10/19 13:24 98.4 F 100 H 18 10/10/19 12:15 96 H 20 10/10/19 12:01 95 H 21 10/10/19 11:56 101 H 20 BP BP BP Pulse Ox Pulse Ox 10/11/19 10:10 10/11/19 10:00 94 10/11/19 09:38 100/48 92 10/11/19 03:20 10/11/19 03:17 101/50 93 10/11/19 02:23 10/11/19 01:15 93 10/10/19 22:18 107/55 93 10/10/19 21:46 102/55 10/10/19 20:54 95 10/10/19 20:53 10/10/19 16:13 124/64 90 10/10/19 13:24 128/69 92 10/10/19 12:15 132/57 95 10/10/19 12:01 139/66 95 10/10/19 11:56 141/61 95 - Physical Examination HEENT: Positive: PERRL Neck: Positive: neck supple, trachea midline Abdomen: Positive: Other (abdominal wound vac is in place) Extremities: Present: edema - Labs and Meds CBC 10/11/19 Range/Units 05:41 WBC 13.2 H (4.5-11.0) K/mm3 RBC 3.68 (3.65-5.03) M/mm3 Hgb 11.3 L (11.8-15.2) gm/dl Hct 33.8 L (35.5-45.6) % Plt Count 543 H (140-440) K/mm3 Comprehensive Metabolic Panel 10/11/19 Range/Units 05:41 Sodium 134 L (137-145) mmol/L Potassium 5.0 (3.6-5.0) mmol/L Chloride 96.3 L (98-107) mmol/L Carbon Dioxide 24 (22-30) mmol/L BUN 37 H (9-20) mg/dL Creatinine 1.4 (0.8-1.5) mg/dL Glucose 58 L (75-100) mg/dL Calcium 9.4 (8.4-10.2) mg/dL
--- NOTE | 2019-10-11 12:27 | Progress Note ---
Assessment and Plan - Patient Problems (1) Dehiscence of closure of fascia, superficial or muscular Current Visit: No Status: Acute Qualifiers: Encounter type: initial encounter Qualified Code(s): T81.32XA - Disruption of internal operation (surgical) wound, not elsewhere classified, initial encounter Plan to address problem: Pt stable. s/p ex lap with closure of abdominal wall and wound vac placement (10/05) - POD#6. He appears a little better today. Rec: 1) Wound vac - discussed with wound care nurse this morning. She will leave supplies at the bedside for me to change the wound VAC on Tuesday. 2) Nutrition - Clears for comfort. gut is slowing down as a result of the intra-abdominal infection. If unable to advance by Tuesday, will place orders for TPN. 3) Activity - Needs to ambulate. 4) Pulmonary Toilet - encouraged coughing and deep breathing. He is apprehensive due to the fascial dehiscence occurring with the last coughing bout. I encouraged him to keep the binder on tight and reinforce the abdomen with a pillow. 5) Leukocytosis - Continues to come down. However, his platelets are rising. There is some inflammatory process occurring. Possibly due to the fluid collections on the right side of the abdomen. 6) Peripheral Edema - this may be third spacing of fluid due to his increased inflammatory state. 7) Renal Insufficiency - Cr much improved today! Appreciate Nephrology and Hospitalists help with this. 8) Abdominal Fluid collections - Drains working well. As his labs and clinic state appear improved, hard to imagine that there is an active leak from the bowel. Also, gram stain/cultures have not shown any organism yet. However, if the amount of fluid draining each day is not decreasing, will consider CT with rectal contrast to check for leak. If leak is present, then may have to return to OR. As the anastomosis is covered with omentum, it should seal on its own if there is very little output. Therefore, will stop all bowel regimen meds to m inimize pressure on the system. If he clinically gets worse, then will proceed back to OR. 9) DVT prophylaxis - I think he is far enough out from his GI bleed that we should consider starting subcutaneous heparin to minimize his risk for DVTs Will follow along. Please call with questions. Time=15min Subjective Date of service: 10/11/19 Patient Reports: Positive: feels better, pain is less, no flatus, no bowel movement, afebrile, other (burping more. feels confused). Negative: nausea, vomiting, shortness of breath Objective Vital Signs - 12hr 10/11/19 10/11/19 10/11/19 01:15 02:23 03:17 Temperature 98.1 F Pulse Rate 56 L Pulse Rate [ 93 H Anterior Bilateral Throughout] Respiratory 16 17 Rate Respiratory 20 Rate [Anterior Bilateral Throughout] Blood Pressure 101/50 [Left] O2 Sat by Pulse 93 93 Oximetry 10/11/19 10/11/19 10/11/19 03:20 09:38 10:00 Temperature 97.8 F Pulse Rate 96 H 88 Pulse Rate [ Anterior Bilateral Throughout] Respiratory 17 Rate Respiratory Rate [Anterior Bilateral Throughout] Blood Pressure 100/48 [Left] O2 Sat by Pulse 92 94 Oximetry 10/11/19 10/11/19 10:10 11:59 Temperature 97.4 F L Pulse Rate 87 Pulse Rate [ 82 Anterior Bilateral Throughout] Respiratory Rate Respiratory 24 Rate [Anterior Bilateral Throughout] Blood Pressure 93/60 [Left] O2 Sat by Pulse 94 Oximetry - General physical appearance no distress, no pain, other (looks better. sitting up in chair) - Eyes normal occular movement - Respiratory normal expansion, normal respiratory effort (appears to be breathing easier) - Abdomen soft, tender (on right side), bowel sounds hypoactive, not guarding, not rigid, other (drains are working well. [place] colored fluid - bottom>top drain) - Psychiatric oriented to time, oriented to person, oriented to place, speech is normal, memory intact - Labs 10/11/19 05:41 10/11/19 05:41 Diabetes panel 10/11/19 Range/Units 05:41 Sodium 134 L (137-145) mmol/L Potassium 5.0 (3.6-5.0) mmol/L Chloride 96.3 L (98-107) mmol/L Carbon Dioxide 24 (22-30) mmol/L BUN 37 H (9-20) mg/dL Creatinine 1.4 (0.8-1.5) mg/dL Glucose 58 L (75-100) mg/dL Calcium 9.4 (8.4-10.2) mg/dL Calcium panel 10/11/19 Range/Units 05:41 Calcium 9.4 (8.4-10.2) mg/dL Phosphorus 4.90 H (2.5-4.5) mg/dL Pituitary panel 10/11/19 Range/Units 05:41 Sodium 134 L (137-145) mmol/L Potassium 5.0 (3.6-5.0) mmol/L Chloride 96.3 L (98-107) mmol/L Carbon Dioxide 24 (22-30) mmol/L BUN 37 H (9-20) mg/dL Creatinine 1.4 (0.8-1.5) mg/dL Glucose 58 L (75-100) mg/dL Calcium 9.4 (8.4-10.2) mg/dL Adrenal panel 10/11/19 Range/Units 05:41 Sodium 134 L (137-145) mmol/L Potassium 5.0 (3.6-5.0) mmol/L Chloride 96.3 L (98-107) mmol/L Carbon Dioxide 24 (22-30) mmol/L BUN 37 H (9-20) mg/dL Creatinine 1.4 (0.8-1.5) mg/dL Glucose 58 L (75-100) mg/dL Calcium 9.4 (8.4-10.2) mg/dL
[2019-10-11] MEDS: oxyCODONE /ACETAMINOPHEN 5-325MG TAB PO PRN (12:56)
--- NOTE | 2019-10-11 16:56 | XRay Report ---
CHEST 1 VIEW INDICATION / CLINICAL INFORMATION: right upper arm picc. COMPARISON: Chest radiograph 10/09/2019 FINDINGS: SUPPORT DEVICES: Interval placement of right-sided PICC with tip extending superiorly up the right in ternal jugular vein and terminating in the right neck. HEART / MEDIASTINUM: Stable. LUNGS / PLEURA: Mild bibasilar subsegmental atelectasis. No pleural effusion. No pneumothorax. ADDITIONAL FINDINGS: Cervical fixation hardware in place. IMPRESSION: 1. Right-sided PICC extending up the right internal jugular vein and terminating in the right neck. The above finding was discussed with JUSTIN Palmer, at 3:51 PM central time on 10/11/2019 Signer Name: Zari Ornelas MD Signed: 10/11/2019 4:51 PM Workstation Name: [id number]
--- NOTE | 2019-10-11 17:17 | XRay Report ---
CHEST 2 views by approximately 1 hour INDICATION: pulled back 5cm BEVERLEY DL picc placement. COMPARISON: Chest x-ray from earlier today FINDINGS: Support devices: The right-sided PICC line is again addition cranially and should be repositioned in the SVC. Heart: Within normal limits. Lungs/Pleura: Stable streaky bibasilar airspace disease Additional findings: None. IMPRESSION: 1. Malpositioned right-sided PICC line again noted and previously called to the patient's nurse. No i nterval change. Signer Name: Hilario Day MD Signed: 10/11/2019 5:12 PM Workstation Name: [id number]
--- NOTE | 2019-10-11 17:20 | Ultrasound Report ---
ULTRASOUND RENAL INDICATION / CLINICAL INFORMATION: renal failure. COMPARISON: CT abdomen/pelvis from 10/09/2019 FINDINGS: RIGHT KIDNEY: Length = 14.3 cm. [normal > 9 cm] - Parenchymal Thickness = 1.9 cm. [normal > 1.5 cm] - Echogenicity: Normal. - Hydronephrosis: None. - Cyst or mass: No significant abnormality. - Stones: None seen. LEFT KIDNEY: Length = 9 cm. [normal > 9 cm] - Parenchymal Thickness = 2.4 cm. [normal > 1.5 cm] - Echogenicity: Normal. - Hydronephrosis: None. - Cyst or mass: No significant abnormality. - Stones: None seen. URINARY BLADDER: No significant abnormality. FREE FLUID: None. ADDITIONAL FINDINGS: None. IMPRESSION: 1. Size discrepancy between the kidneys. Otherwise unremarkable exam. Signer Name: Hilario Day MD Signed: 10/11/2019 5:15 PM Workstation Name: [id number]
[2019-10-11] MEDS: MONTELUKAST 10 MG TAB PO SCH (21:39)
[2019-10-11] MEDS: CEFEPIME/NS 2 GM/100 ML 2 GM/100 ML BAG IV SCH ×2 (21:39→21:42)
[2019-10-11] MEDS ORDERED: LORazepam 2 MG/ML VIAL IV ONE (22:54)
[2019-10-12] MEDS ORDERED: LORazepam 2 MG/ML VIAL IV ONE (01:20)
[2019-10-12] MEDS: IPRATROPIUM/ALBUTEROL SULFATE 3 ML AMPUL.NEB IH SCH ×4 (02:52→22:44)
[2019-10-12] MEDS: HYDROmorphone 1 MG/1 ML INJ IV PRN ×2 (03:27→15:06)
[2019-10-12] MEDS: CEFEPIME/NS 2 GM/100 ML 2 GM/100 ML BAG IV SCH ×3 (05:40→22:56)
[2019-10-12] MEDS: BENZONATATE 100 MG CAP PO SCH ×3 (05:41→22:56)
[2019-10-12] MEDS: metroNIDAZOLE/NS 500 MG/100 ML 500 MG/100 ML BAG IV SCH ×2 (06:17→14:08)
[2019-10-12 06:43] LABS: Hematocrit 30.9 % (35.5-45.6); Hemoglobin 10.2 gm/dl (11.8-15.2); Mean Corpuscular HGB Conc 33 % (32-34); Mean Corpuscular Volume 91 fl (84-94); Platelet Count 459 K/mm3 (140-440); Red Blood Count 3.39 M/mm3 (3.65-5.03); Red Cell Distribution Width 15.5 % (13.2-15.2)
[2019-10-12 06:58] LABS: Calcium 8.8 mg/dL (8.4-10.2)
[2019-10-12] MEDS: ARFORMOTEROL 15 MCG/2 ML NEBU IH SCH ×2 (07:28→22:44)
[2019-10-12] MEDS: BUDESONIDE 0.5 MG/2 ML NEBU IH SCH ×2 (07:28→22:44)
--- NOTE | 2019-10-12 08:20 | Progress Note ---
Assessment and Plan Acute Renal Failure likely secondary to ischemic ATN due to Sepsis -Cr is stable - will add lasix 40 mg IV qday - will check SPEP and UPEP for proteinuria -no hydronephrosis on CT -Obtain daily weights -Monitor I/O's -Monitor renal function closely Dehiscence of closure of fascia, superficial or muscular -S/P multiple abdominal surgeries -S/P CT guided placement of a 8 Fr APD drain in the RUQ and RLQ by IR 10/10/19 -Gen surgeon onboard Hypertension -Stable -Adjust regimen as needed Tylor matta MD [phone] Subjective Date of service: 10/12/19 Principal diagnosis: acute renal failure Interval history: some SOB, remains to have swelling Objective - Vital Signs Vital signs: Vital Signs - 12hr 10/11/19 10/11/19 10/11/19 21:40 22:00 22:04 Temperature Pulse Rate 94 H Pulse Rate [ 88 Anterior Bilateral Throughout] Respiratory Rate Respiratory 18 Rate [Anterior Bilateral Throughout] Blood Pressure 93/48 Blood Pressure [Left] O2 Sat by Pulse 94 Oximetry 10/11/19 10/11/19 10/12/19 22:25 23:28 00:00 Temperature 98.3 F 98.9 F Pulse Rate 102 H 99 H 97 H Pulse Rate [ Anterior Bilateral Throughout] Respiratory 19 Rate Respiratory Rate [Anterior Bilateral Throughout] Blood Pressure 78/43 Blood Pressure 137/53 105/46 [Left] O2 Sat by Pulse 93 94 Oximetry 10/12/19 10/12/19 10/12/19 03:04 03:20 03:25 Temperature 98.2 F Pulse Rate 103 H Pulse Rate [ 88 Anterior Bilateral Throughout] Respiratory 21 Rate Respiratory 24 Rate [Anterior Bilateral Throughout] Blood Pressure 126/66 Blood Pressure [Left] O2 Sat by Pulse 92 Oximetry - General Appearance General appearance: well-developed, well-nourished, obese EENT: ATNC, PERRL, mucous membranes moist Neck: no JVD, no carotid bruit Respiratory: Present: Decreased Breath Sounds. Absent: Rales Cardiology: regular, S1S2 Gastrointestinal: normoactive bowel sounds, no tenderness, no distended, obese Integumentary: no rash, warm and dry Neurologic: no focal deficit, no asterixis, alert and oriented x3 Musculoskeletal: other (2+ pitting edema in BLE) Psychiatric: mood/affect appropriate, cooperative - Lab 10/12/19 06:09 10/12/19 06:09 Most recent lab results Calcium 8.8 mg/dL (8.4-10.2) 10/12/19 06:09 Phosphorus 4.90 mg/dL (2.5-4.5) H 10/11/19 05:41 Urine Creatinine 116.8 mg/dL (0.1-20.0) H 10/11/19 06:23 Urine Creatinine 118.2 mg/dL (0.1-20.0) H 10/11/19 06:23 Urine Sodium 14 mmol/L 10/11/19 06:23 Urine Total Protein 104 mg/dL (5-11.8) H 10/11/19 06:23 Urine Total Protein 105 mg/dL (5-11.8) H 10/11/19 06:23 Medications & Allergies - Medications Allergies/Adverse Reactions: Allergies Sulfa (Sulfonamide Antibiotics) Allergy (Severe, Verified 03/22/16 18:34) Rash oxytetracycline [From Terramycin] Allergy (Verified 03/22/16 10:32) Unknown oxytetracycline HCl [From Terramycin] Allergy (Verified 03/22/16 10:32) Unknown Penicillins Adverse Reaction (Severe, Verified 03/22/16 18:34) Shortness of Breath Home Medications: Home Medications Medication Instructions Recorded Confirmed Last Taken Type ALBUTEROL Inhaler (OR & NICU) 2 puff IH QID PRN #1 inhalation 08/17/18 10/06/19 Unknown Rx [ProAir HFA Inhaler] Arformoterol Nebu [Brovana Nebu] 15 mcg IH Q12HRT ml 08/17/18 10/06/19 10/05/19 Rx Benzonatate [Tessalon Perles] 100 mg PO Q8HR capsule 08/17/18 10/06/19 10/03/19 21:00 Rx Citalopram [Celexa] 20 mg PO QDAY #30 tablet 08/17/18 10/06/19 10/04/19 Rx Ipratropium/Albuterol Sulfate 1 ampul IH Q6HRT #30 ampul.neb 08/17/18 10/06/19 10/05/19 21:00 Rx [DUONEB *Not for PRN Use*] Lisinopril [Zestril TAB] 20 mg PO DAILY #30 tablet 08/17/18 10/06/19 10/05/19 08:00 Rx Metoprolol [Lopressor TAB] 100 mg PO BID #60 tablet 08/17/18 10/06/19 10/05/19 08:00 Rx Pravastatin [Pravachol] 40 mg PO QHS #30 tablet 08/17/18 10/06/19 10/04/19 22:00 Rx Symbicort 160-4.5 Mcg Inhaler 1 puff INHALATION BID #30 08/17/18 10/06/19 09/05/19 23:00 Rx Acetaminophen [Acetaminophen TAB] 2 tab PO Q4H PRN #30 tablet 10/03/19 10/06/19 Unknown Rx Bisacodyl [Dulcolax suppos] 10 mg AR QDAY PRN #4 supp.rect 10/03/19 10/06/19 Unknown Rx Pantoprazole [Protonix TAB] 40 mg PO BID #60 tablet 10/03/19 10/06/19 10/04/19 21:00 Rx Sucralfate [Carafate] 1 gm PO Q6HR 30 Days oral.liqd 10/03/19 10/06/19 10/05/19 08:00 Rx levoFLOXacin [Levaquin TAB] 750 mg PO QDAY #2 tablet 10/03/19 10/06/19 10/04/19 08:00 Rx oxyCODONE /ACETAMINOPHEN [Percocet 1 tab PO Q4H PRN #26 tablet 10/03/19 10/06/19 10/04/19 21:00 Rx 5/325 mg] Active Medications: Generic Name Dose Route Start Last Admin Trade Name Freq PRN Reason Stop Dose Admin Acetaminophen 650 mg 10/05/19 21:22 10/09/19 05:09 Tylenol PO 650 mg Q4H PRN Administration Pain MILD(1-3)/Fever >100.5/ROMANO Albuterol 2.5 mg 10/05/19 21:36 Proventil IH Q4HRT PRN Shortness Of Breath Albuterol/Ipratropium 1 ampul 10/06/19 02:00 10/12/19 07:28 Duoneb *Not For Prn Use* IH 1 ampul Q6HRT VERÓNICA Administration Arformoterol Tartrate 15 mcg 10/06/19 08:30 10/12/19 07:28 Brovana Nebu IH 15 mcg Q12HRT VERÓNICA Administration Benzonatate 100 mg 10/09/19 14:00 10/12/19 05:41 Tessalon Perles PO 100 mg Q8HR VERÓNICA Administration Budesonide 0.5 mg 10/07/19 12:20 10/12/19 07:28 Pulmicort IH 0.5 mg Q12HRT VERÓNICA Administration Citalopram Hydrobromide 20 mg 10/06/19 10:00 10/11/19 09:40 Celexa PO 20 mg QDAY VERÓNICA Administration Furosemide 40 mg 10/12/19 10:00 Lasix IV QDAY VERÓNICA Hydromorphone HCl 0.5 mg 10/05/19 21:22 10/12/19 03:27 Dilaudid IV 0.5 mg Q3H PRN Administration Pain , Severe (7-10) Metronidazole 500 mg in 100 mls @ 100 mls/hr 10/10/19 14:00 10/12/19 06:17 Flagyl 500 Mg/100 Ml IV 100 mls/hr Q8HR VERÓNICA Administration Protocol Cefepime HCl 2 gm in 100 mls @ 200 mls/hr 10/11/19 14:00 10/12/19 05:40 Cefepime/Ns 2 Gm/100 Ml IV 200 mls/hr Q8HR VERÓNICA Administration Protocol Metoprolol Tartrate 100 mg 10/06/19 10:00 10/11/19 21:40 Metoprolol PO Not Given BID [facility] Montelukast Sodium 10 mg 10/09/19 22:00 10/11/19 21:39 Singulair PO 10 mg QHS VERÓNICA Administration Ondansetron HCl 4 mg 10/05/19 21:22 10/11/19 18:20 Zofran IV 4 mg Q3H PRN Administration Nausea And Vomiting Oxycodone/Acetaminophen 2 tab 10/06/19 12:26 10/11/19 12:56 Percocet 5/325 PO 2 tab Q6H PRN Administration Pain, Moderate (4-6) Pantoprazole Sodium 40 mg 10/06/19 10:00 10/11/19 21:41 Protonix PO 40 mg BID VERÓNICA Administration Sodium Chloride 10 ml 10/05/19 22:00 10/11/19 21:41 Sodium Chloride Flush Syringe 10 Ml IV 10 ml BID VERÓNICA Administration Sodium Chloride 10 ml 10/05/19 21:22 Sodium Chloride Flush Syringe 10 Ml IV PRN PRN LINE FLUSH
--- NOTE | 2019-10-12 08:37 | Progress Note ---
Assessment and Plan - Patient Problems (1) Physical deconditioning Current Visit: Yes Status: Acute (2) Wound dehiscence Current Visit: Yes Status: Acute (3) COPD (chronic obstructive pulmonary disease) Current Visit: Yes Status: Chronic Qualifiers: COPD type: unspecified COPD Qualified Code(s): J44.9 - Chronic obstructive pulmonary disease, unspecified (4) Acute exacerbation of chronic obstructive pulmonary disease (COPD) Current Visit: No Status: Acute (5) CAP (community acquired pneumonia) Current Visit: No Status: Acute Subjective Principal diagnosis: acute renal failure Interval history: events of last pm awake but confused Objective Vital Signs - 12hr 10/11/19 10/11/19 10/11/19 21:40 22:00 22:04 Temperature Pulse Rate 94 H Pulse Rate [ 88 Anterior Bilateral Throughout] Respiratory Rate Respiratory 18 Rate [Anterior Bilateral Throughout] Blood Pressure 93/48 Blood Pressure [Left] O2 Sat by Pulse 94 Oximetry 10/11/19 10/11/19 10/12/19 22:25 23:28 00:00 Temperature 98.3 F 98.9 F Pulse Rate 102 H 99 H 97 H Pulse Rate [ Anterior Bilateral Throughout] Respiratory 19 Rate Respiratory Rate [Anterior Bilateral Throughout] Blood Pressure 78/43 Blood Pressure 137/53 105/46 [Left] O2 Sat by Pulse 93 94 Oximetry 10/12/19 10/12/19 10/12/19 03:04 03:20 03:25 Temperature 98.2 F Pulse Rate 103 H Pulse Rate [ 88 Anterior Bilateral Throughout] Respiratory 21 Rate Respiratory 24 Rate [Anterior Bilateral Throughout] Blood Pressure 126/66 Blood Pressure [Left] O2 Sat by Pulse 92 Oximetry 10/12/19 08:15 Temperature 97.7 F Pulse Rate 131 H Pulse Rate [ Anterior Bilateral Throughout] Respiratory 20 Rate Respiratory Rate [Anterior Bilateral Throughout] Blood Pressure 120/62 Blood Pressure [Left] O2 Sat by Pulse 91 Oximetry Constitutional: no acute distress, alert Eyes: non-icteric ENT: oropharynx moist Neck: supple Effort: normal Ascultation: Bilateral: diminished breath sounds Cardiovascular: regular rate and rhythm Gastrointestinal: normoactive bowel sounds Integumentary: normal Extremities: no cyanosis Neurologic: normal mental status, non-focal exam Psychiatric: mood appropriate, affect normal CBC and BMP: 10/12/19 06:09 10/12/19 06:09 Abnormal lab findings: Abnormal Labs 10/06/19 10/06/19 10/07/19 05:36 05:36 05:54 WBC 21.8 H 21.5 H RBC 3.55 L Hgb 10.9 L Hct 32.7 L RDW Plt Count Seg Neuts % (Manual) 91.0 H Lymphocytes % (Manual) 2.0 L Seg Neutrophils # Man 19.8 H Lymphocytes # (Manual) 0.4 L Monocytes # (Manual) 1.1 H Sodium 135 L Potassium Chloride 95.9 L Carbon Dioxide BUN Creatinine 0.7 L Glucose POC Glucose Calcium Phosphorus Total Protein 5.7 L Albumin 2.5 L Urine Creatinine Urine Total Protein 10/07/19 10/09/19 10/09/19 05:54 10:52 10:52 WBC 16.6 H RBC Hgb Hct RDW Plt Count 498 H Seg Neuts % (Manual) 93.0 H Lymphocytes % (Manual) 5.0 L Seg Neutrophils # Man 15.4 H Lymphocytes # (Manual) 0.8 L Monocytes # (Manual) Sodium Potassium Chloride 97.9 L Carbon Dioxide 20 L D BUN 23 H Creatinine 1.7 H D Glucose 109 H POC Glucose Calcium 8.1 L Phosphorus Total Protein Albumin Urine Creatinine Urine Total Protein 10/09/19 10/10/19 10/10/19 17:23 05:30 05:30 WBC 14.6 H RBC Hgb 11.1 L Hct 33.5 L RDW Plt Count 527 H Seg Neuts % (Manual) Lymphocytes % (Manual) Seg Neutrophils # Man Lymphocytes # (Manual) Monocytes # (Manual) Sodium 130 L D Potassium 5.1 H Chloride 90.0 L 91.0 L Carbon Dioxide 20 L 20 L BUN 27 H 35 H Creatinine 1.9 H 2.0 H Glucose 104 H POC Glucose Calcium Phosphorus Total Protein Albumin Urine Creatinine Urine Total Protein 10/10/19 10/10/19 10/11/19 08:33 08:44 05:41 WBC 13.2 H RBC Hgb 11.3 L Hct 33.8 L RDW 15.3 H Plt Count 543 H Seg Neuts % (Manual) Lymphocytes % (Manual) Seg Neutrophils # Man Lymphocytes # (Manual) Monocytes # (Manual) Sodium Potassium Chloride Carbon Dioxide BUN Creatinine Glucose 113 H POC Glucose 117 H Calcium Phosphorus Total Protein Albumin Urine Creatinine Urine Total Protein 10/11/19 10/11/19 10/11/19 05:41 06:23 06:23 WBC RBC Hgb Hct RDW Plt Count Seg Neuts % (Manual) Lymphocytes % (Manual) Seg Neutrophils # Man Lymphocytes # (Manual) Monocytes # (Manual) Sodium 134 L Potassium Chloride 96.3 L Carbon Dioxide BUN 37 H Creatinine Glucose 58 L POC Glucose Calcium Phosphorus 4.90 H Total Protein Albumin Urine Creatinine 118.2 H 116.8 H Urine Total Protein 105 H 104 H 10/12/19 10/12/19 06:09 06:09 WBC 13.8 H RBC 3.39 L Hgb 10.2 L Hct 30.9 L RDW 15.5 H Plt Count 459 H Seg Neuts % (Manual) Lymphocytes % (Manual) Seg Neutrophils # Man Lymphocytes # (Manual) Monocytes # (Manual) Sodium 131 L Potassium Chloride 96.2 L Carbon Dioxide 21 L BUN 43 H Creatinine Glucose 72 L POC Glucose Calcium Phosphorus Total Protein Albumin Urine Creatinine Urine Total Protein
[2019-10-12] MEDS ORDERED: LORazepam 2 MG/ML VIAL IV PRN (09:22)
[2019-10-12] MEDS ORDERED: DEXTROSE 50% IN WATER (25GM) 50 ML SYRINGE IV ONE ×2 (09:23→14:10)
--- NOTE | 2019-10-12 09:25 | Progress Note ---
Assessment and Plan Assessment and plan: * Per patient drinks 6 packs of alcohol daily * Confused this morning * Possible Withdrawal- start CIWA protocol, obtain AMMONIA level, LFT, Head CT, discussed with Surgeon * Await Repeat Imaging to confirm PICC placement, may need IR to evaluate. - Patient Problems (1) Dehiscence of closure of fascia, superficial or muscular Current Visit: Yes Status: Acute Plan to address problem: Patient status post surgical correction. Patient white count did go up to 21. Not sure if this is related. No fever. wound vac is in place concern of free air, although this can be from the recent surgery, CT guided placement of a 8 Fr APD drain in the RUQ, CT guided placement of a 8 Fr APD drain in the RLQ (2) Acute Metabolic Encephalopathy presumed ETOH withdrawal start on CIWA PROTOCOL Check ammonia level Banana bag Head ct when able discussed with spouse and surgeon (3)Pulmonary consolidation vs atlalectasis Current Visit: Yes Status: Chronic Qualifiers: COPD type: unspecified COPD Qualified Code(s): J44.9 - Chronic obstructive pulmonary disease, unspecified Plan to address problem: Doing much better. Would discontinue continuous pulse ox so patient can become more active walking around. Pulmonary consolidation-will obtain Pulmonary consult Continue abx, for presumed Pneumonia, Not present on admission Encourage compliance with incentive spirometer Discussed with Pulmonary likely all Atalectasis (4)Presume Acute sepsis -possible Aspiration Pneumonia. Considering pulmonary consolidation- ID consulted Input noted. NOT PRESENT ON ADMISSION (5) Acute kidney injury secondary to ATN Nephrology consult- They stopped the fluids, Renal function is improved. WORK UP still pending Avoid Nephrotoxic meds (6)HLD (hyperlipidemia) Current Visit: Yes Status: Chronic Qualifiers: Hyperlipidemia type: mixed hyperlipidemia Qualified Code(s): E78.2 - Mixed hyperlipidemia Plan to address problem: Patient lipids stable. Continue statin if needed. (6) HTN (hypertension) Current Visit: Yes Status: Chronic Qualifiers: Hypertension type: essential hypertension Qualified Code(s): I10 - Essential (primary) hypertension Plan to address problem: Patient continues to have optimal control blood pressure. Does have some lower extremity edema that needs to be addressed. (7) COPD (chronic obstructive pulmonary disease) Current Visit: No Status: Acute Qualifiers: COPD type: COPD with acute exacerbation Qualified Code(s): J44.1 - Chronic obstructive pulmonary disease with (acute) exacerbation (8) Atypical chest pain: cardiac enzymes negative. cardiology following, no new inervention (9) Edema of both lower extremities Current Visit: Yes Status: Acute Plan to address problem: Both lower extremities. Appears to be dependent edema patient has been in bed sits up at the side of bed gravity takes fluid down to the legs. Patient does have +4 pitting edema. Lasix was held Hypoalbuminemia secondary to surgery Acute blood loss anemia- expected: Monitor Peripheral Edema - lasix given Discussed with surgical team Continue PT/OT History Interval history: Patient seen and examined, improved respiration and ambulatory per staff. Drainage tube placed and draining feculent material. Also patient today with confusion, discussed with spouse at bedside, states patient is a 6 pack a day drinker Hospitalist Physical - Physical exam Narrative exam: General appearance: Present: confused, well-nourished - EENT Eyes: Present: PERRL, EOM intact ENT: hearing intact, clear oral mucosa, dentition normal - Neck Neck: Present: supple, normal ROM - Respiratory Respiratory effort: normal, diminished left > right - Cardiovascular Rhythm: irregularly irregular Heart Sounds: Present: S1 & S2 - Extremities Extremities: no ischemia, pulses intact, pulses symmetrical, No edema, normal temperature, normal color Extremity abnormal: erythema - Abdominal General gastrointestinal: soft, other (postsurgical changes with binder . mild tender on right upper quandrant. wound vac, Binder in place, CT guided placement of a 8 Fr APD drain in the RUQ, CT guided placement of a 8 Fr APD drain in the RLQE With feculent material) - Integumentary Integumentary: Present: clear, warm, dry - Psychiatric Psychiatric: appropriate mood/affect, intact judgment & insight, agitated - Neurologic Neurologic: CNII-XII intact, moves all extremities - Constitutional Vitals: Temp Pulse Resp BP Pulse Ox 97.7 F 131 H 20 120/62 91 10/12/19 08:15 10/12/19 08:15 10/12/19 08:15 10/12/19 08:15 10/12/19 09:05 General appearance: Present: no acute distress Results - Labs CBC & Chem 7: 10/12/19 06:09 10/12/19 06:09 Labs: Laboratory Last Values WBC 13.8 K/mm3 (4.5-11.0) H 10/12/19 06:09 RBC 3.39 M/mm3 (3.65-5.03) L 10/12/19 06:09 Hgb 10.2 gm/dl (11.8-15.2) L 10/12/19 06:09 Hct 30.9 % (35.5-45.6) L 10/12/19 06:09 MCV 91 fl (84-94) 10/12/19 06:09 MCH 30 pg (28-32) 10/12/19 06:09 MCHC 33 % (32-34) 10/12/19 06:09 RDW 15.5 % (13.2-15.2) H 10/12/19 06:09 Plt Count 459 K/mm3 (140-440) H 10/12/19 06:09 Add Manual Diff Complete 10/09/19 10:52 Total Counted 100 10/09/19 10:52 Seg Neutrophils % Ms Sql Dba 10/09/19 10:52 Seg Neuts % (Manual) 93.0 % (40.0-70.0) H 10/09/19 10:52 Band Neutrophils % 1.0 % 10/09/19 10:52 Lymphocytes % (Manual) 5.0 % (13.4-35.0) L 10/09/19 10:52 Reactive Lymphs % (Man) 0 % 10/09/19 10:52 Monocytes % (Manual) 1.0 % (0.0-7.3) 10/09/19 10:52 Eosinophils % (Manual) 0 % (0.0-4.3) 10/09/19 10:52 Basophils % (Manual) 0 % (0.0-1.8) 10/09/19 10:52 Metamyelocytes % 0 % 10/09/19 10:52 Myelocytes % 0 % 10/09/19 10:52 Promyelocytes % 0 % 10/09/19 10:52 Blast Cells % 0 % 10/09/19 10:52 Nucleated RBC % Not Reportable 10/09/19 10:52 Seg Neutrophils # Man 15.4 K/mm3 (1.8-7.7) H 10/09/19 10:52 Band Neutrophils # 0.2 K/mm3 10/09/19 10:52 Lymphocytes # (Manual) 0.8 K/mm3 (1.2-5.4) L 10/09/19 10:52 Abs React Lymphs (Man) 0.0 K/mm3 10/09/19 10:52 Monocytes # (Manual) 0.2 K/mm3 (0.0-0.8) 10/09/19 10:52 Eosinophils # (Manual) 0.0 K/mm3 (0.0-0.4) 10/09/19 10:52 Basophils # (Manual) 0.0 K/mm3 (0.0-0.1) 10/09/19 10:52 Metamyelocytes # 0.0 K/mm3 10/09/19 10:52 Myelocytes # 0.0 K/mm3 10/09/19 10:52 Promyelocytes # 0.0 K/mm3 10/09/19 10:52 Blast Cells # 0.0 K/mm3 10/09/19 10:52 WBC Morphology Not Reportable 10/09/19 10:52 Hypersegmented Neuts Not Reportable 10/09/19 10:52 Hyposegmented Neuts Not Reportable 10/09/19 10:52 Hypogranular Neuts Not Reportable 10/09/19 10:52 Smudge Cells Not Reportable 10/09/19 10:52 Toxic Granulation Not Reportable 10/09/19 10:52 Toxic Vacuolation Not Reportable 10/09/19 10:52 Dohle Bodies Not Reportable 10/09/19 10:52 Pelger-Huet Anomaly Not Reportable 10/09/19 10:52 Andres Rods Not Reportable 10/09/19 10:52 Platelet Estimate Consistent w auto 10/09/19 10:52 Clumped Platelets Not Reportable 10/09/19 10:52 Plt Clumps, EDTA Not Reportable 10/09/19 10:52 Large Platelets Rare 10/09/19 10:52 Giant Platelets Not Reportable 10/09/19 10:52 Platelet Satelliting Not Reportable 10/09/19 10:52 Plt Morphology Comment Not Reportable 10/09/19 10:52 RBC Morphology Normal 10/09/19 10:52 Dimorphic RBCs Not Reportable 10/09/19 10:52 Polychromasia Not Reportable 10/09/19 10:52 Hypochromasia Not Reportable 10/09/19 10:52 Poikilocytosis Not Reportable 10/09/19 10:52 Anisocytosis Not Reportable 10/09/19 10:52 Microcytosis Not Reportable 10/09/19 10:52 Macrocytosis Not Reportable 10/09/19 10:52 Spherocytes Not Reportable 10/09/19 10:52 Pappenheimer Bodies Not Reportable 10/09/19 10:52 Sickle Cells Not Reportable 10/09/19 10:52 Target Cells Not Reportable 10/09/19 10:52 Tear Drop Cells Not Reportable 10/09/19 10:52 Ovalocytes Not Reportable 10/09/19 10:52 Helmet Cells Not Reportable 10/09/19 10:52 [place] Bodies Not Reportable 10/09/19 10:52 [place] Rings Not Reportable 10/09/19 10:52 Bishnu Cells Not Reportable 10/09/19 10:52 Bite Cells Not Reportable 10/09/19 10:52 Crenated Cell Not Reportable 10/09/19 10:52 Elliptocytes Not Reportable 10/09/19 10:52 Acanthocytes (Spur) Not Reportable 10/09/19 10:52 Rouleaux Not Reportable 10/09/19 10:52 Hemoglobin C Crystals Not Reportable 10/09/19 10:52 Schistocytes Not Reportable 10/09/19 10:52 Malaria parasites Not Reportable 10/09/19 10:52 Toni Bodies Not Reportable 10/09/19 10:52 Hem Pathologist Commnt No 10/09/19 10:52 POC ABG pH 7.370 (7.35-7.45) 10/12/19 08:20 POC ABG pCO2 42.2 (35-45) 10/12/19 08:20 POC ABG pO2 63 (80-105) L 10/12/19 08:20 POC ABG HCO3 24.4 (22-26 mml/L) 10/12/19 08:20 POC ABG Total CO2 26 (23-27mmol/L) 10/12/19 08:20 POC ABG O2 Sat 91 10/12/19 08:20 POC ABG Base Excess -1 ((-2) - (+3)mmol/L) 10/12/19 08:20 FiO2 36 % 10/12/19 08:20 Sodium 131 mmol/L (137-145) L 10/12/19 06:09 Potassium 4.5 mmol/L (3.6-5.0) 10/12/19 06:09 Chloride 96.2 mmol/L (98-107) L 10/12/19 06:09 Carbon Dioxide 21 mmol/L (22-30) L 10/12/19 06:09 Anion Gap 18 mmol/L 10/12/19 06:09 BUN 43 mg/dL (9-20) H 10/12/19 06:09 Creatinine 1.3 mg/dL (0.8-1.5) 10/12/19 06:09 Estimated GFR 57 ml/min 10/12/19 06:09 BUN/Creatinine Ratio 33 % 10/12/19 06:09 Glucose 72 mg/dL (75-100) L 10/12/19 06:09 POC Glucose 117 (70-105) H 10/10/19 08:33 Hemoglobin A1c 5.7 % (4-6) 10/06/19 05:36 Calcium 8.8 mg/dL (8.4-10.2) 10/12/19 06:09 Phosphorus 4.90 mg/dL (2.5-4.5) H 10/11/19 05:41 Total Bilirubin 0.40 mg/dL (0.1-1.2) 10/06/19 05:36 AST 22 units/L (5-40) 10/06/19 05:36 ALT 9 units/L (7-56) 10/06/19 05:36 Alkaline Phosphatase 78 units/L (35-129) 10/06/19 05:36 Troponin T < 0.010 ng/mL (0.00-0.029) 10/09/19 17:23 Total Protein 5.7 g/dL (6.3-8.2) L 10/06/19 05:36 Albumin 2.5 g/dL (3.9-5) L 10/06/19 05:36 Albumin/Globulin Ratio 0.8 % 10/06/19 05:36 Urine Color Obd[place] (Yellow) 10/11/19 06:23 Urine Turbidity Cloudy (Clear) 10/11/19 06:23 Urine pH 5.0 (5.0-7.0) 10/11/19 06:23 Ur Specific [place] 1.018 (1.003-1.030) 10/11/19 06:23 Urine Protein 30 mg/dl mg/dL (Negative) 10/11/19 06:23 Urine Glucose (UA) Neg mg/dL (Negative) 10/11/19 06:23 Urine Ketones Neg mg/dL (Negative) 10/11/19 06:23 Urine Blood Mod (Negative) 10/11/19 06:23 Urine Nitrite Neg (Negative) 10/11/19 06:23 Urine Bilirubin Neg (Negative) 10/11/19 06:23 Urine Urobilinogen < 2.0 mg/dL (<2.0) 10/11/19 06:23 Ur Leukocyte Esterase Neg (Negative) 10/11/19 06:23 Urine WBC (Auto) 3.0 /HPF (0.0-6.0) 10/11/19 06:23 Urine RBC (Auto) 3.0 /HPF (0.0-6.0) 10/11/19 06:23 Urine Bacteria (Auto) 1+ /HPF (Negative) 10/11/19 06:23 Urine Eosinophils None seen (None Seen) 10/11/19 06:23 Urine Creatinine 116.8 mg/dL (0.1-20.0) H 10/11/19 06:23 Urine Creatinine 118.2 mg/dL (0.1-20.0) H 10/11/19 06:23 Protein/Creatinin Ratio 0.89 10/11/19 06:23 Urine Sodium 14 mmol/L 10/11/19 06:23 Urine Total Protein 104 mg/dL (5-11.8) H 10/11/19 06:23 Urine Total Protein 105 mg/dL (5-11.8) H 10/11/19 06:23 Active Medications - Current Medications Current Medications: Generic Name Dose Route Start Last Admin Trade Name Freq PRN Reason Stop Dose Admin Acetaminophen 650 mg 10/05/19 21:22 10/09/19 05:09 Tylenol PO 650 mg Q4H PRN Administration Pain MILD(1-3)/Fever >100.5/ROMANO Albuterol 2.5 mg 10/05/19 21:36 Proventil IH Q4HRT PRN Shortness Of Breath Albuterol/Ipratropium 1 ampul 10/06/19 02:00 10/12/19 07:28 Duoneb *Not For Prn Use* IH 1 ampul Q6HRT VERÓNICA Administration Arformoterol Tartrate 15 mcg 10/06/19 08:30 10/12/19 07:28 Ashvin Yen IH 15 mcg Q12HRT VERÓNICA Administration Benzonatate 100 mg 10/09/19 14:00 10/12/19 05:41 Tessalon Perles PO 100 mg Q8HR VERÓNICA Administration Budesonide 0.5 mg 10/07/19 12:20 10/12/19 07:28 Pulmicort IH 0.5 mg Q12HRT VERÓNICA Administration Citalopram Hydrobromide 20 mg 10/06/19 10:00 10/11/19 09:40 Celexa PO 20 mg QDAY VERÓNICA Administration Dextrose 25 ml 10/12/19 09:23 D50w (25gm) Syringe IV 10/12/19 09:24 ONCE ONE Protocol Furosemide 40 mg 10/12/19 10:00 Lasix IV QDAY VERÓNICA Hydromorphone HCl 0.5 mg 10/05/19 21:22 10/12/19 03:27 Dilaudid IV 0.5 mg Q3H PRN Administration Pain , Severe (7-10) Metronidazole 500 mg in 100 mls @ 100 mls/hr 10/10/19 14:00 10/12/19 06:17 Flagyl 500 Mg/100 Ml IV 100 mls/hr Q8HR VERÓNICA Administration Protocol Cefepime HCl 2 gm in 100 mls @ 200 mls/hr 10/11/19 14:00 10/12/19 05:40 Cefepime/Ns 2 Gm/100 Ml IV 200 mls/hr Q8HR VERÓNICA Administration Protocol Lorazepam 2 mg 10/12/19 09:22 Ativan IV Q1HR PRN CIWA-Ar 8-15 Metoprolol Tartrate 100 mg 10/06/19 10:00 10/11/19 21:40 Metoprolol PO Not Given BID VERÓNICA Montelukast Sodium 10 mg 10/09/19 22:00 10/11/19 21:39 Singulair PO 10 mg QHS VERÓNICA Administration Ondansetron HCl 4 mg 10/05/19 21:22 10/11/19 18:20 Zofran IV 4 mg Q3H PRN Administration Nausea And Vomiting Oxycodone/Acetaminophen 2 tab 10/06/19 12:26 10/11/19 12:56 Percocet 5/325 PO 2 tab Q6H PRN Administration Pain, Moderate (4-6) Pantoprazole Sodium 40 mg 10/06/19 10:00 10/11/19 21:41 Protonix PO 40 mg BID VERÓNICA Administration Sodium Chloride 10 ml 10/05/19 22:00 10/11/19 21:41 Sodium Chloride Flush Syringe 10 Ml IV 10 ml BID VERÓNICA Administration Sodium Chloride 10 ml 10/05/19 21:22 Sodium Chloride Flush Syringe 10 Ml IV PRN PRN LINE FLUSH Nutrition/Malnutrition Assess - Dietary Evaluation Nutrition/Malnutrition Findings: Nutrition Notes Start: 10/08/19 11:36 Freq: Status: Active Protocol: Document 10/08/19 11:36 LP (Rec: 10/08/19 11:41 LP [id number]) Nutrition Notes Need for Assessment generated from: MD Order Initial or Follow up Assessment Current Diagnosis COPD,Hypertension Other Pertinent Diagnosis AMI, Abdominal Fascial dishiscence S/P exp lap Current Diet cardiac Labs/Tests Reviewed Pertinent Medications Reviewed Height 6 ft Weight 127.006 kg [place] Body Weight (kg) 80.90 BMI 38.0 Weight Status Morbidly Obese Subjective/Other Information Consult for malnutrition. Pt states eating well [employer] and now . Pt consumed 100% of breakfast this AM. Pt denies wt changes and there are no physical signs of malnutrition . Pt denies need for more food or supplement for protein. Burn Absent Trauma Absent GI Symptoms None Minimum of two criteria No physical signs of malnutrition #1 Nutrition Diagnosis Increased nutrient needs ( specify in comment below) Comments: Protein Etiology Sx As Evidenced by Signs and Symptoms Pt with multiple sx and exp lap Is patient on ventilator? No Is Patient Ambulatory and/or Out of Bed Yes REE-([facility]-ambulatory/OOB) [ 2779.478 NUTR.[id number]] Kcal/Kg value to use for calculation 15 Approximate Energy Requirements Using 1905 kcal/Kg Calculation Used for Recommendations Kcal/kg Additional Notes Protein needs are Nutrition Intervention Change Diet Order: Continue cardiac Goal #1 Continue meeting 80% of kcal or protein needs Anticipated Discharge Needs: Cardiac diet Revisit per MD consult or patient Sign Off request: - Malnutrition Assessment Minimum of two criteria: No - Attestation Statement I have reviewed and agreed w/ Malnutrition eval & tx plan: Yes
--- NOTE | 2019-10-12 09:45 | Progress Note ---
Subjective Date of service: 10/12/19 Principal diagnosis: acute renal failure Interval history: Assessment and Plan Severe abdominal pain s/p exploratory laparotomy, abdominal washout, closure of abdominal fascia with wound vac placement. Recent colon resection for bowel perforation following a colonoscopy Atypical chest pain chest CT reports left lower lobe pleural effusion with suspected left upper lobe pneumonia. troponins are normal Hx of CO/CAD PCI of the circumflex and second vessel POBA of the distal LAD occlusion. Left ventricle fraction 45-50%. Tobacco abuse COPD Hypertension Hyperlipidemia Plan CV stable at this time, no further workup intended. Objective Vital Signs Temp Pulse Pulse Resp Resp BP BP 10/12/19 09:05 10/12/19 08:15 97.7 F 131 H 20 120/62 10/12/19 07:40 130 H 18 10/12/19 03:25 98.2 F 10/12/19 03:20 103 H 21 126/66 10/12/19 03:04 88 24 10/12/19 00:00 98.9 F 97 H 105/46 10/11/19 23:28 98.3 F 99 H 19 78/43 10/11/19 22:25 102 H 137/53 10/11/19 22:04 10/11/19 22:00 88 18 10/11/19 21:40 94 H 93/48 10/11/19 19:29 97.3 F L 94 H 20 93/48 10/11/19 18:50 17 10/11/19 18:39 98.3 F 97 H 17 91/55 10/11/19 15:30 92 H 18 10/11/19 12:54 91 H 110/56 10/11/19 11:59 97.4 F L 87 93/60 10/11/19 10:10 82 24 10/11/19 10:00 Pulse Ox 10/12/19 09:05 91 10/12/19 08:15 91 10/12/19 07:40 10/12/19 03:25 10/12/19 03:20 92 10/12/19 03:04 10/12/19 00:00 94 10/11/19 23:28 93 10/11/19 22:25 10/11/19 22:04 94 10/11/19 22:00 10/11/19 21:40 10/11/19 19:29 91 10/11/19 18:50 11/28/19 18:39 91 10/11/19 15:30 10/11/19 12:54 10/11/19 11:59 94 10/11/19 10:10 10/11/19 10:00 94 - Physical Examination HEENT: Positive: PERRL Neck: Positive: neck supple, trachea midline Cardiac: Positive: Reg Rate and Rhythm, S1/S2 Lungs: Positive: Normal Exam Abdomen: Positive: Other (abdominal wound vac is in place) Extremities: Absent: edema - Labs and Meds CBC 10/12/19 Range/Units 06:09 WBC 13.8 H (4.5-11.0) K/mm3 RBC 3.39 L (3.65-5.03) M/mm3 Hgb 10.2 L (11.8-15.2) gm/dl Hct 30.9 L (35.5-45.6) % Plt Count 459 H (140-440) K/mm3 Comprehensive Metabolic Panel 10/12/19 Range/Units 06:09 Sodium 131 L (137-145) mmol/L Potassium 4.5 (3.6-5.0) mmol/L Chloride 96.2 L (98-107) mmol/L Carbon Dioxide 21 L (22-30) mmol/L BUN 43 H (9-20) mg/dL Creatinine 1.3 (0.8-1.5) mg/dL Glucose 72 L (75-100) mg/dL Calcium 8.8 (8.4-10.2) mg/dL
[2019-10-12] MEDS ORDERED: 1: FOLIC ACID 1 MG, MULTIPLE VITAMIN INJ, ADULT 10 ML, THIAMINE 100 MG in SODIUM CHLORID IV SCH (10:00)
[2019-10-12] MEDS ORDERED: FOLIC ACID 1 MG, THIAMINE 100 MG, MULTIPLE VITAMIN INJ, ADULT 10 ML in SODIUM CHLORIDE ... IV SCH (10:00)
--- NOTE | 2019-10-12 10:05 | Progress Note ---
Assessment and Plan Cultures Wound culture 10/10/19 pending Assessment: 54 yo M PMhx CAD, COPD, recent complicated course of bowel perforation after a colonoscopy admitted after surgical site herniation. Now with possibly infected fluid culture 1. Acute sepsis - present with leukocytosis and tachycardia. Most likely secondary to fluid collection in the abdomen 2. Post-surgical fluid collection - cultures are pending. I would prefer to change him to Zosyn at the present time, however his allergy history precludes that for the most part. Would continue cefepime and Flagyl as he is afebrile and stable at the present time. Can tailor antibiotics pending culture results, or continue present regimen if cultures are negative. 3. COPD 4. Penicillin allergy - likely not a true allergy, or at least he may have grown out of it. No need to test at present time, but culture results may require that in the near future. Recs: - continue cefepime and metronidazole - will add fluconazole 400mg q24h (may need increased dose due to size) due to intra-abdominal pathology, ongoing leukocytosis - follow up cultures Thank you for the consult, we will continue to follow. [facility] M: [phone] O: [phone] F: [phone] Subjective Date of service: 10/12/19 Principal diagnosis: acute renal failure Interval history: Afebrile, persistently elevated leukocytosis. Objective - Exam Narrative Exam: General Normal appearance, well developed, no acute distress Eyes - PERRLA, EOM intact ENT - Moist mucous membranes, no lymphadenopathy Neck - No noticeable or palpable swelling, redness or rash around throat or on face Lymph Nodes - No lymphadenopathy Cardiovascular - RRR no m/r/g, no JVD, no carotid bruits Lungs - Clear to auscultation, no use of accessory muscles, no crackles or wheezes. Skin - No rashes, skin warm and dry, no erythematous areas Abdomen - Normal bowel sounds, abdomen soft and nontender. 2x drains in place./ Extremities - No edema, cyanosis or clubbing Musculoskeletal - 5/5 strength, normal range of motion, no swollen or erythematous joints. Neurological Alert and oriented x 3, CN 2-12 grossly intact. - Constitutional Vitals: Vital Signs Temp Pulse Resp BP Pulse Ox 97.7 F 131 H 20 120/62 91 10/12/19 08:15 10/12/19 08:15 10/12/19 08:15 10/12/19 08:15 10/12/19 09:05 Temperature -Last 24 Hours Temperature 97.7 F Temperature 98.2 F Temperature 98.9 F Temperature 98.3 F Temperature 97.3 F Temperature 98.3 F Temperature 97.4 F - Labs CBC & Chem 7: 10/12/19 06:09 10/12/19 06:09 Labs: Abnormal lab results 10/12/19 10/12/19 10/12/19 Range/Units 06:09 06:09 08:20 WBC 13.8 H (4.5-11.0) K/mm3 RBC 3.39 L (3.65-5.03) M/mm3 Hgb 10.2 L (11.8-15.2) gm/dl Hct 30.9 L (35.5-45.6) % RDW 15.5 H (13.2-15.2) % Plt Count 459 H (140-440) K/mm3 POC ABG pO2 63 L (80-105) Sodium 131 L (137-145) mmol/L Chloride 96.2 L (98-107) mmol/L Carbon Dioxide 21 L (22-30) mmol/L BUN 43 H (9-20) mg/dL Glucose 72 L (75-100) mg/dL
[2019-10-12 10:17] LABS: Albumin 2.2 g/dL (3.9-5); Bilirubin,Direct 0.3 mg/dL (0-0.2)
[2019-10-12] MEDS ORDERED: HEPARIN 10,000 UNITS/10 ML VIAL ONE (11:24)
[2019-10-12] MEDS ORDERED: HEPARIN/NS 5000 UNIT/500ML 500 ML IR ONE (11:24)
[2019-10-12] MEDS ORDERED: LIDOCAINE 1%/EPINEPHRINE 1:100,000 VIAL (20 ML) INFILTRATI ONE (11:24)
[2019-10-12] MEDS ORDERED: ceFAZolin/Water 2 GM/20 ML 0 GM/0 ML SYRINGE IV ONE (11:24)
--- NOTE | 2019-10-12 11:26 | XRay Report ---
CHEST 1 VIEW 10/12/2019 10:17 AM INDICATION / CLINICAL INFORMATION: Check PICC placment. COMPARISON: 10/11/2019 FINDINGS: SUPPORT DEVICES: Right upper extremity PICC tip extends cranially and should be repositioned. HEART / MEDIASTINUM: No significant abnormality. LUNGS / PLEURA: Stable streaky bibasilar opacities. No pneumothorax. ADDITIONAL FINDINGS: No significant additional findings. IMPRESSION: 1. Unchanged malpositioned right upper extremity PICC. Signer Name: Geovany Jarrett MD Signed: 10/12/2019 11:22 AM Workstation Name: [id number]
[2019-10-12] MEDS: METOPROLOL TARTRATE 100 MG TAB PO SCH ×2 (11:50→22:54)
--- NOTE | 2019-10-12 12:35 | Operative Report ---
Operative Report Operative Report: Exam: PICC line removal, PICC line insertion Clinical indication: Patient with malposition PICC line extending up the internal jugular vein Date: 10/12/2019 Procedure: Following an explanation of the risks, benefits and alternatives; written informed consent was obtained from the patient's secondary to altered mental status. Patient was brought to the angiographic suite and placed in supine position on the examination table. Initial fluoroscopic images demonstrated a PICC line extending up the internal jugular vein. The patient's arm and indwelling PICC line were prepped and draped in the usual sterile fashion. 1% lidocaine was used for anesthesia at the catheter exit site. A 0.018 guidewire was advanced through the indwelling PICC line in the PICC line removed intact. The guidewire was then directed down the superior vena cava into the right atrium. A 5.5 [place] peel-away sheath was placed over the guidewire and advanced centrally. Following standard guidewire measurements, the guidewire was removed and the PICC cut to length and inserted through the peel-away sheath. The peel-away sheath was removed to position the tip of the PICC in the proximal right atrium. Both ports flushed and aspirated easily and were then locked with sterile saline. The catheter was securely fastened to the skin surface using a StatLock device and a sterile dressing applied. The patient tolerated the procedure well. There were no immediate post procedure complications. Sedation was not utilized. Continuous cardiopulmonary monitoring was utilized. Impression: PICC line removal, PICC line insertion with a tip of the new PICC in the proximal right atrium.
--- NOTE | 2019-10-12 13:43 | Cat Scan Report ---
CT head/brain wo con INDICATION / CLINICAL INFORMATION: 54 years Male; confusion. TECHNIQUE: Routine CT head without contrast. All CT scans at this location are performed using CT dos e reduction for ALARA by means of automated exposure control. COMPARISON: The CT is compared to the previous CT of 03/22/2016. FINDINGS: BRAIN / INTRACRANIAL CONTENTS: The brain appears to demonstrate appropriate attenuation for age witho ut significant interval change from the previous CT. The ventricular system remains appropriate in si ze and configuration. The motion degrades the image quality. However, there is no definitive CT evide nce of acute intracranial hemorrhage or significant mass effect. ORBITS: No significant abnormality of visualized orbits. SINUSES / MASTOIDS: No significant abnormality the visualized paranasal sinuses or mastoid air cells. CRANIOCERVICAL JUNCTION: No significant abnormality. ADDITIONAL FINDINGS: None. IMPRESSION: 1. The motion degrades the image quality. However, there is no definitive CT evidence of acute intrac ranial process. Signer Name: Brandon Cameron MD Signed: 10/12/2019 1:39 PM Workstation Name: [id number]
[2019-10-12] MEDS: PANTOPRAZOLE 40 MG TAB PO SCH ×2 (13:50→22:54)
[2019-10-12] MEDS: CITALOPRAM 20 MG TAB PO SCH (13:51)
[2019-10-12] MEDS: FLUCONAZOLE 400 MG 200 ML IV SCH (13:53)
[2019-10-12] MEDS ORDERED: FUROSEMIDE 40 MG/4 ML INJ IV ONE (14:00)
--- NOTE | 2019-10-12 17:00 | Progress Note ---
Assessment and Plan - Patient Problems (1) Dehiscence of closure of fascia, superficial or muscular Current Visit: No Status: Acute Qualifiers: Encounter type: initial encounter Qualified Code(s): T81.32XA - Disruption of internal operation (surgical) wound, not elsewhere classified, initial encounter Plan to address problem: Pt stable. s/p ex lap with closure of abdominal wall and wound vac placement (10/05) - POD#7. Rec: 1) Wound vac - Changed today at bedside. Wound looks good. 2) Nutrition - Clears for comfort. gut is slowing down as a result of the intra- abdominal infection. Agree with starting of TPN 3) Activity - Needs to ambulate. 4) Pulmonary Toilet - encouraged coughing and deep breathing. He is apprehensive due to the fascial dehiscence occurring with the last coughing bout. I encouraged him to keep the binder on tight and reinforce the abdomen with a pillow. 5) Leukocytosis - About the same today However, his platelets are down today. There is some inflammatory process occurring. Possibly due to the fluid collections on the right side of the abdomen. 6) Peripheral Edema - this may be third spacing of fluid due to his increased inflammatory state. 7) Renal Insufficiency - Cr stable 8) Abdominal Fluid collections - Drains working well. If the amount of fluid draining each day is not decreasing, will consider CT with rectal contrast to check for leak. If leak is present, then may have to return to OR. As the anastomosis is covered with omentum, it should seal on its own if there is very little output. If he clinically gets worse, then will proceed back to OR. If we do plan to return to OR, will need to soon as the abdomen will soon be frozen. 9) DVT prophylaxis - I think he is far enough out from his GI bleed that we should consider starting subcutaneous heparin to minimize his risk for DVTs 10) Etoh Withdrawal - Appears to be withdrawing now. Started on CIWA protocol by hospitalist. Had a long discussion with . Discussed the alcohol withdrawal issues only complicates our picture. Increases his risk for morbidity and mortality. Discussed plan for abdominal fluid collections. She understands that she was very appreciative of all to help. Will follow along. Please call with questions. Time=20min Subjective Date of service: 10/12/19 Patient Reports: Positive: no new complaints, still having pain, afebrile, other (confusion ). Negative: nausea, vomiting Objective Vital Signs - 12hr 10/12/19 10/12/19 10/12/19 07:40 08:15 09:05 Temperature 97.7 F Pulse Rate 131 H Pulse Rate [ 130 H Anterior Bilateral Throughout] Respiratory 20 Rate Respiratory 18 Rate [Anterior Bilateral Throughout] Blood Pressure 120/62 O2 Sat by Pulse 91 91 Oximetry 10/12/19 15:55 Temperature 98.8 F Pulse Rate 148 H Pulse Rate [ Anterior Bilateral Throughout] Respiratory 20 Rate Respiratory Rate [Anterior Bilateral Throughout] Blood Pressure 142/84 O2 Sat by Pulse 85 Oximetry - General physical appearance no distress, no pain, obese, other (sedated) - Respiratory normal expansion, normal respiratory effort - Abdomen soft, tender (on right flank only), bowel sounds hypoactive, distended, not guarding, not rigid, surgical scars (clean. some fibrinous exudate at top of incision. ), other (minimal output in lower drain. Still guardado in apperance.) - Integumentary no rash, no growths, no abnormal pigmentation - Labs 10/12/19 06:09 10/12/19 06:09 Diabetes panel 10/12/19 10/12/19 Range/Units 06:09 09:30 Sodium 131 L (137-145) mmol/L Potassium 4.5 (3.6-5.0) mmol/L Chloride 96.2 L (98-107) mmol/L Carbon Dioxide 21 L (22-30) mmol/L BUN 43 H (9-20) mg/dL Creatinine 1.3 (0.8-1.5) mg/dL Glucose 72 L (75-100) mg/dL Calcium 8.8 (8.4-10.2) mg/dL AST 34 (5-40) units/L ALT 14 (7-56) units/L Alkaline Phosphatase 109 (35-129) units/L Total Protein 5.1 L (6.3-8.2) g/dL Albumin 2.2 L (3.9-5) g/dL Calcium panel 10/12/19 10/12/19 Range/Units 06:09 09:30 Calcium 8.8 (8.4-10.2) mg/dL Albumin 2.2 L (3.9-5) g/dL Pituitary panel 10/12/19 Range/Units 06:09 Sodium 131 L (137-145) mmol/L Potassium 4.5 (3.6-5.0) mmol/L Chloride 96.2 L (98-107) mmol/L Carbon Dioxide 21 L (22-30) mmol/L BUN 43 H (9-20) mg/dL Creatinine 1.3 (0.8-1.5) mg/dL Glucose 72 L (75-100) mg/dL Calcium 8.8 (8.4-10.2) mg/dL Adrenal panel 10/12/19 10/12/19 Range/Units 06:09 09:30 Sodium 131 L (137-145) mmol/L Potassium 4.5 (3.6-5.0) mmol/L Chloride 96.2 L (98-107) mmol/L Carbon Dioxide 21 L (22-30) mmol/L BUN 43 H (9-20) mg/dL Creatinine 1.3 (0.8-1.5) mg/dL Glucose 72 L (75-100) mg/dL Calcium 8.8 (8.4-10.2) mg/dL Total Bilirubin 0.60 (0.1-1.2) mg/dL AST 34 (5-40) units/L ALT 14 (7-56) units/L Alkaline Phosphatase 109 (35-129) units/L Total Protein 5.1 L (6.3-8.2) g/dL Albumin 2.2 L (3.9-5) g/dL
[2019-10-12] MEDS ORDERED: SODIUM CHLORIDE 0.9% 1000 ML 1,000 ML IV SCH (18:00)
[2019-10-12] MEDS: oxyCODONE /ACETAMINOPHEN 5-325MG TAB PO PRN (18:45)
[2019-10-12] MEDS: FUROSEMIDE 40 MG/4 ML INJ IV SCH (19:03)
[2019-10-12] MEDS: MONTELUKAST 10 MG TAB PO SCH (22:54)
[2019-10-13] MEDS: metroNIDAZOLE/NS 500 MG/100 ML 500 MG/100 ML BAG IV SCH ×4 (00:04→22:04)
[2019-10-13] MEDS: HYDROmorphone 1 MG/1 ML INJ IV PRN ×4 (00:04→18:35)
[2019-10-13] MEDS: IPRATROPIUM/ALBUTEROL SULFATE 3 ML AMPUL.NEB IH SCH ×3 (03:46→16:55)
[2019-10-13] MEDS ORDERED: HALOPERIDOL LACTATE 5 MG/1 ML INJ IM ONE (04:00)
--- NOTE | 2019-10-13 04:07 | XRay Report ---
CHEST 1 VIEW INDICATION / CLINICAL INFORMATION: Difficulty breathing. COMPARISON: 10/12/2019 IMPRESSION: SUPPORT DEVICES: The right arm PICC line terminates at the level the right atrium. Patchy scattered a irspace densities are seen bilaterally. HEART / MEDIASTINUM: No significant abnormality. LUNGS / PLEURA: Patchy basilar densities are present bilaterally. Signer Name: Jus Paulson MD Signed: 10/13/2019 4:03 AM Workstation Name: [id number]
[2019-10-13 04:33] LABS: Hematocrit 33.1 % (35.5-45.6); Hemoglobin 10.9 gm/dl (11.8-15.2); Mean Corpuscular HGB Conc 33 % (32-34); Mean Corpuscular Volume 91 fl (84-94); Platelet Count 488 K/mm3 (140-440); Red Blood Count 3.64 M/mm3 (3.65-5.03); Red Cell Distribution Width 15.8 % (13.2-15.2)
[2019-10-13 04:51] LABS: BUN/Creatinine Ratio 35; Blood Urea Nitrogen 28 mg/dL (9-20); Calcium 8.6 mg/dL (8.4-10.2); Hemolysis Index 3
[2019-10-13] MEDS: CEFEPIME/NS 2 GM/100 ML 2 GM/100 ML BAG IV SCH ×3 (05:31→22:04)
[2019-10-13] MEDS: BENZONATATE 100 MG CAP PO SCH ×3 (05:31→22:05)
[2019-10-13] MEDS ORDERED: dilTIAZem 25 MG/5 ML INJ IV ONE (06:04)
--- NOTE | 2019-10-13 06:05 | Event Note ---
Date: 10/13/19 Worsening tachycardia and Leukocytosis. Transfer to IMCU Give a dose of cardizem EKG -sinus tachycardia
--- NOTE | 2019-10-13 08:34 | Progress Note ---
Assessment and Plan - Patient Problems (1) Physical deconditioning Current Visit: Yes Status: Acute (2) Wound dehiscence Current Visit: Yes Status: Acute (3) COPD (chronic obstructive pulmonary disease) Current Visit: Yes Status: Chronic Qualifiers: COPD type: unspecified COPD Qualified Code(s): J44.9 - Chronic obstructive pulmonary disease, unspecified (4) Acute exacerbation of chronic obstructive pulmonary disease (COPD) Current Visit: No Status: Acute (5) CAP (community acquired pneumonia) Current Visit: No Status: Acute Subjective Principal diagnosis: acute renal failure Interval history: Events noted SVT noted on bipap Objective Vital Signs - 12hr 10/12/19 10/12/19 10/12/19 22:00 22:47 23:04 Temperature Pulse Rate 139 H Pulse Rate [ 138 H Anterior Bilateral Throughout] Respiratory 32 H Rate Respiratory 18 Rate [Anterior Bilateral Throughout] Blood Pressure O2 Sat by Pulse 100 96 Oximetry 10/12/19 10/13/19 10/13/19 23:32 03:47 03:48 Temperature 97.3 F L Pulse Rate 130 H Pulse Rate [ 136 H Anterior Bilateral Throughout] Respiratory 20 32 H Rate Respiratory 18 Rate [Anterior Bilateral Throughout] Blood Pressure 104/62 O2 Sat by Pulse 94 98 Oximetry 10/13/19 10/13/19 05:02 07:25 Temperature 97.9 F 97.6 F Pulse Rate 146 H 145 H Pulse Rate [ Anterior Bilateral Throughout] Respiratory 20 24 Rate Respiratory Rate [Anterior Bilateral Throughout] Blood Pressure 106/65 120/70 O2 Sat by Pulse 92 93 Oximetry Constitutional: alert Eyes: non-icteric ENT: oropharynx moist Neck: supple Effort: normal Ascultation: Bilateral: diminished breath sounds Cardiovascular: regular rate and rhythm Gastrointestinal: normoactive bowel sounds Integumentary: normal Extremities: no cyanosis Neurologic: normal mental status, non-focal exam Psychiatric: mood appropriate, affect normal CBC and BMP: 10/13/19 04:20 10/13/19 04:20 ABG, PT/INR, D-dimer: ABG POC ABG pH 7.392 (7.35-7.45) 10/12/19 23:43 POC ABG pCO2 43.4 (35-45) 10/12/19 23:43 POC ABG pO2 84 (80-105) 10/12/19 23:43 POC ABG HCO3 26.4 (22-26 mml/L) 10/12/19 23:43 POC ABG Total CO2 28 (23-27mmol/L) 10/12/19 23:43 POC ABG O2 Sat 96 10/12/19 23:43 Abnormal lab findings: Abnormal Labs 10/06/19 10/06/19 10/07/19 05:36 05:36 05:54 WBC 21.8 H 21.5 H RBC 3.55 L Hgb 10.9 L Hct 32.7 L RDW Plt Count Seg Neuts % (Manual) 91.0 H Lymphocytes % (Manual) 2.0 L Seg Neutrophils # Man 19.8 H Lymphocytes # (Manual) 0.4 L Monocytes # (Manual) 1.1 H POC ABG pO2 Sodium 135 L Potassium Chloride 95.9 L Carbon Dioxide BUN Creatinine 0.7 L Glucose POC Glucose Calcium Phosphorus Magnesium Direct Bilirubin Total Protein 5.7 L Albumin 2.5 L Urine Creatinine Urine Total Protein 10/07/19 10/09/19 10/09/19 05:54 10:52 10:52 WBC 16.6 H RBC Hgb Hct RDW Plt Count 498 H Seg Neuts % (Manual) 93.0 H Lymphocytes % (Manual) 5.0 L Seg Neutrophils # Man 15.4 H Lymphocytes # (Manual) 0.8 L Monocytes # (Manual) POC ABG pO2 Sodium Potassium Chloride 97.9 L Carbon Dioxide 20 L D BUN 23 H Creatinine 1.7 H D Glucose 109 H POC Glucose Calcium 8.1 L Phosphorus Magnesium Direct Bilirubin Total Protein Albumin Urine Creatinine Urine Total Protein 10/09/19 10/10/19 10/10/19 17:23 05:30 05:30 WBC 14.6 H RBC Hgb 11.1 L Hct 33.5 L RDW Plt Count 527 H Seg Neuts % (Manual) Lymphocytes % (Manual) Seg Neutrophils # Man Lymphocytes # (Manual) Monocytes # (Manual) POC ABG pO2 Sodium 130 L D Potassium 5.1 H Chloride 90.0 L 91.0 L Carbon Dioxide 20 L 20 L BUN 27 H 35 H Creatinine 1.9 H 2.0 H Glucose 104 H POC Glucose Calcium Phosphorus Magnesium Direct Bilirubin Total Protein Albumin Urine Creatinine Urine Total Protein 10/10/19 10/10/19 10/11/19 08:33 08:44 05:41 WBC 13.2 H RBC Hgb 11.3 L Hct 33.8 L RDW 15.3 H Plt Count 543 H Seg Neuts % (Manual) Lymphocytes % (Manual) Seg Neutrophils # Man Lymphocytes # (Manual) Monocytes # (Manual) POC ABG pO2 Sodium Potassium Chloride Carbon Dioxide BUN Creatinine Glucose 113 H POC Glucose 117 H Calcium Phosphorus Magnesium Direct Bilirubin Total Protein Albumin Urine Creatinine Urine Total Protein 10/11/19 10/11/19 10/11/19 05:41 06:23 06:23 WBC RBC Hgb Hct RDW Plt Count Seg Neuts % (Manual) Lymphocytes % (Manual) Seg Neutrophils # Man Lymphocytes # (Manual) Monocytes # (Manual) POC ABG pO2 Sodium 134 L Potassium Chloride 96.3 L Carbon Dioxide BUN 37 H Creatinine Glucose 58 L POC Glucose Calcium Phosphorus 4.90 H Magnesium Direct Bilirubin Total Protein Albumin Urine Creatinine 118.2 H 116.8 H Urine Total Protein 105 H 104 H 10/12/19 10/12/19 10/12/19 06:09 06:09 08:20 WBC 13.8 H RBC 3.39 L Hgb 10.2 L Hct 30.9 L RDW 15.5 H Plt Count 459 H Seg Neuts % (Manual) Lymphocytes % (Manual) Seg Neutrophils # Man Lymphocytes # (Manual) Monocytes # (Manual) POC ABG pO2 63 L Sodium 131 L Potassium Chloride 96.2 L Carbon Dioxide 21 L BUN 43 H Creatinine Glucose 72 L POC Glucose Calcium Phosphorus Magnesium Direct Bilirubin Total Protein Albumin Urine Creatinine Urine Total Protein 10/12/19 10/12/19 10/13/19 09:30 09:30 04:20 WBC 15.7 H RBC 3.64 L Hgb 10.9 L Hct 33.1 L RDW 15.8 H Plt Count 488 H Seg Neuts % (Manual) Lymphocytes % (Manual) Seg Neutrophils # Man Lymphocytes # (Manual) Monocytes # (Manual) POC ABG pO2 Sodium Potassium Chloride Carbon Dioxide BUN Creatinine Glucose POC Glucose Calcium Phosphorus Magnesium 2.50 H Direct Bilirubin 0.3 H Total Protein 5.1 L Albumin 2.2 L Urine Creatinine Urine Total Protein 10/13/19 04:20 WBC RBC Hgb Hct RDW Plt Count Seg Neuts % (Manual) Lymphocytes % (Manual) Seg Neutrophils # Man Lymphocytes # (Manual) Monocytes # (Manual) POC ABG pO2 Sodium Potassium Chloride Carbon Dioxide BUN 28 H Creatinine Glucose POC Glucose Calcium Phosphorus Magnesium Direct Bilirubin Total Protein Albumin Urine Creatinine Urine Total Protein Chest x-ray: report reviewed, image reviewed
[2019-10-13] MEDS: BUDESONIDE 0.5 MG/2 ML NEBU IH SCH ×2 (08:36→20:53)
[2019-10-13] MEDS: ARFORMOTEROL 15 MCG/2 ML NEBU IH SCH ×2 (08:36→20:53)
[2019-10-13] MEDS: CITALOPRAM 20 MG TAB PO SCH (09:11)
[2019-10-13] MEDS: METOPROLOL TARTRATE 100 MG TAB PO SCH (09:12)
[2019-10-13] MEDS: FUROSEMIDE 40 MG/4 ML INJ IV SCH ×2 (09:12→10:30)
[2019-10-13] MEDS: PANTOPRAZOLE 40 MG TAB PO SCH ×3 (09:14→22:00)
[2019-10-13] MEDS: FLUCONAZOLE 400 MG 200 ML IV SCH (09:21)
[2019-10-13] MEDS ORDERED: METOPROLOL TARTRATE 5 MG/5 ML INJ IV ONE ×3 (09:37→14:35)
[2019-10-13] MEDS ORDERED: SODIUM CHLORIDE 0.9% 250ML 250 ML IV ONE (09:40)
[2019-10-13] MEDS: THIAMINE 100 MG TAB PO SCH (10:00)
[2019-10-13] MEDS: MULTIVITAMINS ,THERAPEUTIC TAB PO SCH (10:00)
[2019-10-13] MEDS ORDERED: dilTIAZem/D5W 100 MG/100 ML BAG IV SCH (10:00)
[2019-10-13] MEDS: FOLIC ACID 1 MG TAB PO SCH (10:00)
[2019-10-13] MEDS ORDERED: METOPROLOL TARTRATE 100 MG TAB PO SCH ×2 (10:00)
[2019-10-13] MEDS ORDERED: SODIUM CHLORIDE 0.9% 1000 ML 1,000 ML IV SCH (10:00)
[2019-10-13] MEDS: METOPROLOL TARTRATE 5 MG/5 ML INJ IV SCH ×2 (11:21→20:47)
--- NOTE | 2019-10-13 11:23 | Progress Note ---
Subjective Date of service: 10/13/19 Principal diagnosis: acute renal failure Interval history: Seen ICU with family Resp declining, increase HR 140-150, SVT, suspect sepsis/inflammatory response. Start IVF, CXR without pulm edema, albumin 2.2, third-spacing likely. Use b-marilyn prn, avoid vasodilating chronotropic agents in this setting (Cardizem) Surgery to see Severe abdominal pain s/p exploratory laparotomy, abdominal washout, closure of abdominal fascia with wound vac placement. Recent colon resection for bowel perforation following a colonoscopy Atypical chest pain chest CT reports left lower lobe pleural effusion with suspected left upper lobe pneumonia. troponins are normal Hx of MD/CAD PCI of the circumflex and second vessel POBA of the distal LAD occlusion. Left ventricle fraction 45-50%. Tobacco abuse COPD Hypertension Hyperlipidemia Objective Vital Signs Temp Pulse Pulse Resp Resp BP BP 10/13/19 09:58 147 H 107/69 10/13/19 09:11 148 H 102/57 10/13/19 08:33 149 H 24 116/62 10/13/19 07:25 97.6 F 145 H 24 120/70 10/13/19 05:02 97.9 F 146 H 20 106/65 10/13/19 03:48 32 H 10/13/19 03:47 136 H 18 10/12/19 23:32 97.3 F L 130 H 20 104/62 10/12/19 23:04 139 H 32 H 10/12/19 22:47 138 H 18 10/12/19 22:00 10/12/19 19:18 97.9 F 131 H 19 137/89 10/12/19 18:05 127 H 21 125/89 10/12/19 15:55 98.8 F 148 H 20 142/84 Pulse Ox 10/13/19 09:58 10/13/19 09:11 10/13/19 08:33 92 10/13/19 07:25 93 10/13/19 05:02 92 10/13/19 03:48 98 10/13/19 03:47 10/12/19 23:32 94 10/12/19 23:04 96 10/12/19 22:47 10/12/19 22:00 100 10/12/19 19:18 93 10/12/19 18:05 97 10/12/19 15:55 85 - Physical Examination General: Other (AMS increase RR on supplemental O2) HEENT: Positive: PERRL Neck: Positive: neck supple, trachea midline Cardiac: Positive: S1/S2, Tachycardia Lungs: Positive: Normal Exam Abdomen: Positive: Other (abdominal wound vac is in place) Extremities: Absent: edema - Labs and Meds CBC 10/13/19 Range/Units 04:20 WBC 15.7 H (4.5-11.0) K/mm3 RBC 3.64 L (3.65-5.03) M/mm3 Hgb 10.9 L (11.8-15.2) gm/dl Hct 33.1 L (35.5-45.6) % Plt Count 488 H (140-440) K/mm3 Comprehensive Metabolic Panel 10/13/19 Range/Units 04:20 Sodium 137 (137-145) mmol/L Potassium 4.2 (3.6-5.0) mmol/L Chloride 103.0 (98-107) mmol/L Carbon Dioxide 23 (22-30) mmol/L BUN 28 H (9-20) mg/dL Creatinine 0.8 (0.8-1.5) mg/dL Glucose 79 (75-100) mg/dL Calcium 8.6 (8.4-10.2) mg/dL
--- NOTE | 2019-10-13 11:31 | Progress Note ---
Assessment and Plan Acute Renal Failure likely secondary to ischemic ATN due to Sepsis - Renal function reviewed, stable, SCr level was 0.8 today, yesterday's SCr level was 1.3 - Started on 0.9% NS infusion at 75 ml/hr by tornado chaser - Will hold morning lasix dose for now as pt is going to surgery and now started on IV fluids this afternoon, will need to re-evaluate need for IV fluids post op, likely need to resume IV lasix. - SPEP and UPEP pending - No hydronephrosis on CT - Monitor I/O's - [place]field Catheter: No - Intake= 1640 ml Output= 2930 ml ( Net= -1290 ml) - Renal plan d/w Dr Jenkins Dehiscence of closure of fascia, superficial or muscular Abdominal Pain -S/p multiple abdominal surgeries -S/p CT guided placement of a 8 Fr APD drain in the RUQ and RLQ by IR 10/10/19 -Gen surgeon on board, taking back to surgery today Hypertension Hx of CAD/CT: Tachycardia: - Cardiology on board, start IV fluids, metoprolol, f/u recs - Adjust regimen as needed Case d/w Hospitalist and nurse Subjective Date of service: 10/13/19 Principal diagnosis: acute renal failure Interval history: Pt seen in ICU on bipap, c/o abdominal pain, ICU at bedside, pt with worsening tachycardia, started on IV fluids, charge nurse states pt will be going back to surgery today and will be on the ventilator post op surgery. Objective - Vital Signs Vital signs: Vital Signs - 12hr 10/12/19 10/13/19 10/13/19 23:32 03:47 03:48 Temperature 97.3 F L Pulse Rate 130 H Pulse Rate [ 136 H Anterior Bilateral Throughout] Respiratory 20 32 H Rate Respiratory 18 Rate [Anterior Bilateral Throughout] Blood Pressure 104/62 O2 Sat by Pulse 94 98 Oximetry 10/13/19 10/13/19 10/13/19 05:02 07:25 08:33 Temperature 97.9 F 97.6 F Pulse Rate 146 H 145 H 149 H Pulse Rate [ Anterior Bilateral Throughout] Respiratory 20 24 24 Rate Respiratory Rate [Anterior Bilateral Throughout] Blood Pressure 106/65 120/70 116/62 O2 Sat by Pulse 92 93 92 Oximetry 10/13/19 10/13/19 10/13/19 09:11 09:58 10:00 Temperature Pulse Rate 148 H 147 H 147 H Pulse Rate [ Anterior Bilateral Throughout] Respiratory Rate Respiratory Rate [Anterior Bilateral Throughout] Blood Pressure 102/57 107/69 124/76 O2 Sat by Pulse Oximetry 10/13/19 11:21 Temperature Pulse Rate 148 H Pulse Rate [ Anterior Bilateral Throughout] Respiratory Rate Respiratory Rate [Anterior Bilateral Throughout] Blood Pressure 124/76 O2 Sat by Pulse Oximetry - General Appearance General appearance: other (awake, on bipap) EENT: ATNC Neck: no JVD Respiratory: Present: Decreased Breath Sounds (on bipap) Cardiology: tachycardia, S1S2 Gastrointestinal: other (abdominal wound with binder in place and drains) Integumentary: warm and dry Neurologic: other (awake, alert, follows simple commands) Musculoskeletal: other (2+ edema to BLE) - Lab 10/13/19 04:20 10/13/19 04:20 Most recent lab results Calcium 8.6 mg/dL (8.4-10.2) 10/13/19 04:20 Phosphorus 4.90 mg/dL (2.5-4.5) H 10/11/19 05:41 Magnesium 2.50 mg/dL (1.7-2.3) H 10/12/19 09:30 Urine Creatinine 116.8 mg/dL (0.1-20.0) H 10/11/19 06:23 Urine Creatinine 118.2 mg/dL (0.1-20.0) H 10/11/19 06:23 Urine Sodium 14 mmol/L 10/11/19 06:23 Urine Total Protein 104 mg/dL (5-11.8) H 10/11/19 06:23 Urine Total Protein 105 mg/dL (5-11.8) H 10/11/19 06:23 Medications & Allergies - Medications Allergies/Adverse Reactions: Allergies Sulfa (Sulfonamide Antibiotics) Allergy (Severe, Verified 03/22/16 18:34) Rash oxytetracycline [From Terramycin] Allergy (Verified 03/22/16 10:32) Unknown oxytetracycline HCl [From Terramycin] Allergy (Verified 03/22/16 10:32) Unknown Penicillins Adverse Reaction (Severe, Verified 03/22/16 18:34) Shortness of Breath Home Medications: Home Medications Medication Instructions Recorded Confirmed Last Taken Type ALBUTEROL Inhaler (OR & NICU) 2 puff IH QID PRN #1 inhalation 08/17/18 10/06/19 Unknown Rx [ProAir HFA Inhaler] Arformoterol Nebu [Brovana Nebu] 15 mcg IH Q12HRT ml 08/17/18 10/06/19 10/05/19 Rx Benzonatate [Tessalon Perles] 100 mg PO Q8HR capsule 08/17/18 10/06/19 10/03/19 21:00 Rx Citalopram [Celexa] 20 mg PO QDAY #30 tablet 08/17/18 10/06/19 10/04/19 Rx Ipratropium/Albuterol Sulfate 1 ampul IH Q6HRT #30 ampul.neb 08/17/18 10/06/19 10/05/19 21:00 Rx [DUONEB *Not for PRN Use*] Lisinopril [Zestril TAB] 20 mg PO DAILY #30 tablet 08/17/18 10/06/19 10/05/19 08:00 Rx Metoprolol [Lopressor TAB] 100 mg PO BID #60 tablet 08/17/18 10/06/19 10/05/19 08:00 Rx Pravastatin [Pravachol] 40 mg PO QHS #30 tablet 08/17/18 10/06/19 10/04/19 22:00 Rx Symbicort 160-4.5 Mcg Inhaler 1 puff INHALATION BID #30 08/17/18 10/06/19 09/05/19 23:00 Rx Acetaminophen [Acetaminophen TAB] 2 tab PO Q4H PRN #30 tablet 10/03/19 10/06/19 Unknown Rx Bisacodyl [Dulcolax suppos] 10 mg IA QDAY PRN #4 supp.rect 10/03/19 10/06/19 Unknown Rx Pantoprazole [Protonix TAB] 40 mg PO BID #60 tablet 10/03/19 10/06/19 10/04/19 21:00 Rx Sucralfate [Carafate] 1 gm PO Q6HR 30 Days oral.liqd 10/03/19 10/06/19 10/05/19 08:00 Rx levoFLOXacin [Levaquin TAB] 750 mg PO QDAY #2 tablet 10/03/19 10/06/1910/04/19 08:00 Rx oxyCODONE /ACETAMINOPHEN [Percocet 1 tab PO Q4H PRN #26 tablet 10/03/19 10/06/19 10/04/19 21:00 Rx 5/325 mg] Active Medications: Generic Name Dose Route Start Last Admin Trade Name Freq PRN Reason Stop Dose Admin Acetaminophen 650 mg 10/05/19 21:22 10/09/19 05:09 Tylenol PO 650 mg Q4H PRN Administration Pain MILD(1-3)/Fever >100.5/ROMANO Albuterol 2.5 mg 10/05/19 21:36 Proventil IH Q4HRT PRN Shortness Of Breath Albuterol/Ipratropium 1 ampul 10/06/19 02:00 10/13/19 08:36 Duoneb *Not For Prn Use* IH Not Given Q6HRT VERÓNICA Arformoterol Tartrate 15 mcg 10/06/19 08:30 10/13/19 08:36 Brovana Nebu IH Not Given Q12HRT VERÓNICA Benzonatate 100 mg 10/09/19 14:00 10/13/19 05:31 Tessalon Perles PO 100 mg Q8HR VERÓNICA Administration Budesonide 0.5 mg 10/07/19 12:20 10/13/19 08:36 Pulmicort IH Not Given Q12HRT VERÓNICA Citalopram Hydrobromide 20 mg 10/06/19 10:00 10/13/19 09:11 Celexa PO 20 mg QDAY VERÓNICA Administration Folic Acid 1 mg 10/13/19 10:00 10/13/19 10:00 Folvite PO Not Given QDAY VERÓNICA Furosemide 40 mg 10/12/19 10:00 10/13/19 09:12 Lasix IV 40 mg QDAY VERÓNICA Administration Hydromorphone HCl 0.5 mg 10/05/19 21:22 10/13/19 06:59 Dilaudid IV 0.5 mg Q3H PRN Administration Pain , Severe (7-10) Metronidazole 500 mg in 100 mls @ 100 mls/hr 10/10/19 14:00 10/13/19 06:55 Flagyl 500 Mg/100 Ml IV 100 mls/hr Q8HR VERÓNICA Administration Protocol Cefepime HCl 2 gm in 100 mls @ 200 mls/hr 10/11/19 14:00 10/13/19 05:31 Cefepime/Ns 2 Gm/100 Ml IV 200 mls/hr Q8HR VERÓNICA Administration Protocol Fluconazole 200 mls @ 100 mls/hr 10/12/19 11:00 10/13/19 09:21 Diflucan IV 100 mls/hr Q24HR VERÓNICA Administration Protocol Sodium Chloride 1,000 mls @ 75 mls/hr 10/13/19 10:00 10/13/19 10:02 Nacl 0.9% 1000 Ml IV 10/15/19 23:59 75 mls/hr DIRECT VERÓNICA Administration Lorazepam 2 mg 10/12/19 09:22 Ativan IV Q1HR PRN CIWA-Ar 8-15 Metoprolol Tartrate 100 mg 10/13/19 10:00 10/13/19 10:00 Metoprolol PO Not Given BID VERÓNICA Metoprolol Tartrate 2.5 mg 10/13/19 12:00 10/13/19 11:21 Metoprolol IV 2.5 mg Q6HR VERÓNICA Administration Montelukast Sodium 10 mg 10/09/19 22:00 10/12/19 22:54 Singulair PO 10 mg QHS VERÓNICA Administration Multivitamins 1 each 10/13/19 10:00 10/13/19 10:00 Theragran Tab PO Not Given QDAY [facility] Ondansetron HCl 4 mg 10/05/19 21:22 10/11/19 18:20 Zofran IV 4 mg Q3H PRN Administration Nausea And Vomiting Oxycodone/Acetaminophen 2 tab 10/06/19 12:26 10/12/19 18:45 Percocet 5/325 PO 2 tab Q6H PRN Administration Pain, Moderate (4-6) Pantoprazole Sodium 40 mg 10/06/19 10:00 10/13/19 10:00 Protonix PO Not Given BID VERÓNICA Sodium Chloride 10 ml 10/05/19 22:00 10/13/19 09:13 Sodium Chloride Flush Syringe 10 Ml IV 10 ml BID VERÓNICA Administration Sodium Chloride 10 ml 10/05/19 21:22 Sodium Chloride Flush Syringe 10 Ml IV PRN PRN LINE FLUSH Thiamine HCl 100 mg 10/13/19 10:00 10/13/19 10:00 Vitamin B-1 PO Not Given QDAY VERÓNICA
--- NOTE | 2019-10-13 11:39 | Progress Note ---
Assessment and Plan - Patient Problems (1) Dehiscence of closure of fascia, superficial or muscular Current Visit: No Status: Acute Qualifiers: Encounter type: initial encounter Qualified Code(s): T81.32XA - Disruption of internal operation (surgical) wound, not elsewhere classified, initial encounter Plan to address problem: Pt stable. s/p ex lap with closure of abdominal wall and wound vac placement (10/05) - POD#8. patient getting worse. Will proceed to OR for ex lap. Procedure, risks, benefits explained to . consent obtained. Rec: 1) Wound vac - Changed on Tuesday at bedside. Wound looks good. 2) Nutrition - TPN 3) Activity - Ambulation when more stable. 4) Pulmonary Toilet - encouraged coughing and deep breathing. He is apprehensive due to the fascial dehiscence occurring with the last coughing bout. I encouraged him to keep the binder on tight and reinforce the abdomen with a pillow. 5) Leukocytosis - Higher today. Patient appears septic today. 6) Peripheral Edema - this may be third spacing of fluid due to his increased inflammatory state. 7) Renal Insufficiency - Cr stable 8) Abdominal Fluid collections - Concerned that this is causing is overall con dition to worsen. Will proceed to OR today for washout. 9) DVT prophylaxis - I think he is far enough out from his GI bleed that we should consider starting subcutaneous heparin to minimize his risk for DVTs 10) Etoh Withdrawal - Appears to be withdrawing now. Started on CIWA protocol by hospitalist. Family states that he has not had a drink in 3 weeks. Had a long discussion with . I have asked permission to take the patient back to the operating room due to his worsening condition. Plan is to wash him out today and leave him with an open abdomen. He'll remain on the vent. Most likely will go back to the operating room on Tuesday for another washout. Please call with questions. Time=20min Subjective Date of service: 10/13/19 Patient Reports: Positive: other (Patient transferred to [facility] early this AM for tachycardia) Objective Vital Signs - 12hr 10/13/19 10/13/19 10/13/19 03:47 03:48 05:02 Temperature 97.9 F Pulse Rate 146 H Pulse Rate [ 136 H Anterior Bilateral Throughout] Respiratory 32 H 20 Rate Respiratory 18 Rate [Anterior Bilateral Throughout] Blood Pressure 106/65 O2 Sat by Pulse 98 92 Oximetry 10/13/19 10/13/19 10/13/19 07:25 08:33 09:11 Temperature 97.6 F Pulse Rate 145 H 149 H 148 H Pulse Rate [ Anterior Bilateral Throughout] Respiratory 24 24 Rate Respiratory Rate [Anterior Bilateral Throughout] Blood Pressure 120/70 116/62 102/57 O2 Sat by Pulse 93 92 Oximetry 10/13/19 10/13/19 10/13/19 09:58 10:00 11:21 Temperature Pulse Rate 147 H 147 H 148 H Pulse Rate [ Anterior Bilateral Throughout] Respiratory Rate Respiratory Rate [Anterior Bilateral Throughout] Blood Pressure 107/69 124/76 124/76 O2 Sat by Pulse Oximetry - General physical appearance no distress, no pain, other (seems a little confused) - Respiratory normal expansion, normal respiratory effort, other (BiPap is on) - Abdomen soft, tender (on right side), distended, other (wound vac in place. minimal output from drains) - Labs 10/13/19 04:20 10/13/19 04:20 Diabetes panel 10/13/19 Range/Units 04:20 Sodium 137 (137-145) mmol/L Potassium 4.2 (3.6-5.0) mmol/L Chloride 103.0 (98-107) mmol/L Carbon Dioxide 23 (22-30) mmol/L BUN 28 H (9-20) mg/dL Creatinine 0.8 (0.8-1.5) mg/dL Glucose 79 (75-100) mg/dL Calcium 8.6 (8.4-10.2) mg/dL Calcium panel 10/13/19 Range/Units 04:20 Calcium 8.6 (8.4-10.2) mg/dL Pituitary panel 10/13/19 Range/Units 04:20 Sodium 137 (137-145) mmol/L Potassium 4.2 (3.6-5.0) mmol/L Chloride 103.0 (98-107) mmol/L Carbon Dioxide 23 (22-30) mmol/L BUN 28 H (9-20) mg/dL Creatinine 0.8 (0.8-1.5) mg/dL Glucose 79 (75-100) mg/dL Calcium 8.6 (8.4-10.2) mg/dL Adrenal panel 10/13/19 Range/Units 04:20 Sodium 137 (137-145) mmol/L Potassium 4.2 (3.6-5.0) mmol/L Chloride 103.0 (98-107) mmol/L Carbon Dioxide 23 (22-30) mmol/L BUN 28 H (9-20) mg/dL Creatinine 0.8 (0.8-1.5) mg/dL Glucose 79 (75-100) mg/dL Calcium 8.6 (8.4-10.2) mg/dL
--- NOTE | 2019-10-13 12:57 | Anesthesia Consultation ---
Anesthesia Consult and Med Hx Date of service: 10/13/19 - Airway Anesthetic Teeth Evaluation: Good ROM Head & Neck: Adequate Mental/Hyoid Distance: Inadequate Mallampati Class: Class III Intubation Access Assessment: Possibly Difficult (previous easy intubation w/ Glidescope) - Pulmonary Exam CTA: Yes - Cardiac Exam Cardiac Exam: RRR (tachycardia) - Pre-Operative Health Status ASA Pre-Surgery Classification: ASA4, Emergency Proposed Anesthetic Plan: General - Pulmonary Hx Smoking: Yes (2ppd) Hx Respiratory Symptoms: Yes (resp insufficiency requiring BiPAP) COPD: Yes Hx Pneumonia: Yes Hx Sleep Apnea: Yes (Baseline room air [id number] [id number]) - Cardiovascular System Hx Hypertension: Yes Hx Coronary Artery Disease: Yes Hx Heart Attack/AMI: Yes (2017) Hx Percutaneous Transluminal Coronary Angioplasty (PTCA): Yes (x1 2016) Hx Cardia Arrhythmia: Yes (SVT) Hx Pacemaker: No Hx Internal Defibrillator: No - Central Nervous System CVA: No Hx Psychiatric Problems: Yes (Anxiety/Depression) - Gastrointestinal Hx Gastroesophageal Reflux Disease: No - Endocrine Hx Renal Disease: Yes (renal insufficiency; 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 Currently normotensive with SVT to 150s; cardiology following. RN recently received orders for IVF bolus and IV metoprolol. Per surgeon, patient will be left with open abdomen. Patient and family aware of surgical plan. Discussed GETA/RSI with postop mechanical ventilation and ICU admission.
--- NOTE | 2019-10-13 12:59 | Anesthesia Day of Surgery ---
Anesthesia Day of Surgery - Day of Surgery Patient Examined: Yes Patient H&P Reviewed: Yes Patient is NPO: Yes Beta Blockers: Yes (prn metoprolol for SVT)
[2019-10-13] MEDS ORDERED: SODIUM CHLORIDE 0.9% 1000 ML 1,000 ML IV ONE ×2 (13:00→21:16)
[2019-10-13] MEDS ORDERED: fentaNYL 100 MCG/2 ML INJ ONE ×2 (13:14→14:51)
[2019-10-13] MEDS ORDERED: ROCURONIUM 50 MG/5 ML INJ IV ONE ×2 (13:14→17:07)
[2019-10-13] MEDS ORDERED: LIDOCAINE MPF (2%) 20 MG/1 ML VIAL 5 ML ONE (13:14)
[2019-10-13] MEDS ORDERED: SUCCINYLCHOLINE CHLORIDE 200 MG/10 ML INJ MDV ONE (13:14)
[2019-10-13] MEDS ORDERED: PROPOFOL 200 MG/20 ML VIAL IV ONE (13:14)
[2019-10-13] MEDS ORDERED: SODIUM CHLORIDE 0.9% 1000 ML 1,000 ML ONE ×2 (13:23→16:12)
--- NOTE | 2019-10-13 16:29 | Progress Note ---
Assessment and Plan Assessment and plan: * Per patient drinks 6 packs of alcohol daily * Confused this morning * Possible Withdrawal- start CIWA protocol, obtain AMMONIA level, LFT, Head CT, discussed with Surgeon * Await Repeat Imaging to confirm PICC placement, may need IR to evaluate. * Patient with persistent SVT, per cardiology likely secondary to inflammation vs infection. Patient per surgeon will return to OR TODAY FOR FURTHER EVALUATION, WILL LIKELY NEED TO STAY ON THE VENT AFTER. - Patient Problems (1) Dehiscence of closure of fascia, superficial or muscular Current Visit: Yes Status: Acute Plan to address problem: Patient status post surgical correction. Patient white count did go up to 21. Not sure if this is related. No fever. wound vac is in place concern of free air, although this can be from the recent surgery, CT guided placement of a 8 Fr APD drain in the RUQ, CT guided placement of a 8 Fr APD drain in the RLQ (2) Acute Metabolic Encephalopathy presumed ETOH withdrawal start on CIWA PROTOCOL Check ammonia level Banana bag Head ct when able discussed with spouse and surgeon (3)Pulmonary consolidation vs atlalectasis Current Visit: Yes Status: Chronic Qualifiers: COPD type: unspecified COPD Qualified Code(s): J44.9 - Chronic obstructive pulmonary disease, unspecified Plan to address problem: Doing much better. Would discontinue continuous pulse ox so patient can become more active walking around. Pulmonary consolidation-will obtain Pulmonary consult Continue abx, for presumed Pneumonia, Not present on admission Encourage compliance with incentive spirometer Discussed with Pulmonary likely all Atalectasis (4)Presume Acute sepsis -possible Aspiration Pneumonia. Considering pulmonary consolidation- ID consulted Input noted. NOT PRESENT ON ADMISSION (5) Acute kidney injury secondary to ATN Nephrology consult- They stopped the fluids, Renal function is improved. WORK UP still pending Avoid Nephrotoxic meds (6)HLD (hyperlipidemia) Current Visit: Yes Status: Chronic Qualifiers: Hyperlipidemia type: mixed hyperlipidemia Qualified Code(s): E78.2 - Mixed hyperlipidemia Plan to address problem: Patient lipids stable. Continue statin if needed. (6) HTN (hypertension) Current Visit: Yes Status: Chronic Qualifiers: Hypertension type: essential hypertension Qualified Code(s): I10 - Essential (primary) hypertension Plan to address problem: Patient continues to have optimal control blood pressure. Does have some lower extremity edema that needs to be addressed. (7) COPD (chronic obstructive pulmonary disease) Current Visit: No Status: Acute Qualifiers: COPD type: COPD with acute exacerbation Qualified Code(s): J44.1 - Chronic obstructive pulmonary disease with (acute) exacerbation (8) Atypical chest pain: cardiac enzymes negative. cardiology following, no new inervention (9) Edema of both lower extremities Current Visit: Yes Status: Acute Plan to address problem: Both lower extremities. Appears to be dependent edema patient has been in bed sits up at the side of bed gravity takes fluid down to the legs. Patient does have +4 pitting edema. Lasix was held Hypoalbuminemia secondary to surgery Acute blood loss anemia- expected: Monitor Discussed with surgical team Continue PT/OT The high probability of a clinically significant, sudden or life threatening deterioration of the [pulmonary, abdominal] system(s) required my full and direct attention, intervention and personal management. The aggregate critical care time was [45] minutes. This time is in addition to time spent performing reported procedures but includes the following: [x] Data Review and interpretation [x] Patient assessment and monitoring of vital signs [x] Documentation [x] Medication orders and management History Interval history: Patient seen and examined, improved respiration and ambulatory per staff. Drainage tube placed and draining feculent material. Confusion persist but improved some with haldol overnight. still with tachycardia Hospitalist Physical - Physical exam Narrative exam: General appearance: Present: confused, well-nourished - EENT Eyes: Present: PERRL, EOM intact ENT: hearing intact, clear oral mucosa, dentition normal - Neck Neck: Present: supple, normal ROM - Respiratory Respiratory effort: normal, diminished left > right - Cardiovascular Rhythm: irregularly irregular, tachycardia Heart Sounds: Present: S1 & S2 - Extremities Extremities: no ischemia, pulses intact, pulses symmetrical, No edema, normal temperature, normal color Extremity abnormal: erythema - Abdominal General gastrointestinal: soft, other (postsurgical changes with binder . mild tender on right upper quandrant. wound vac, Binder in place, CT guided placement of a 8 Fr APD drain in the RUQ, CT guided placement of a 8 Fr APD drain in the RLQE With feculent material) - Integumentary Integumentary: Present: clear, warm, dry - Psychiatric Psychiatric: Confused, agitated - Neurologic Neurologic: CNII-XII intact, moves all extremities - Constitutional Vitals: Temp Pulse Resp BP Pulse Ox 98.0 F 152 H 34 H 115/64 94 10/13/19 12:00 10/13/19 12:57 10/13/19 11:43 10/13/19 12:57 10/13/19 11:43 General appearance: Present: no acute distress Results - Labs CBC & Chem 7: 10/13/19 04:20 10/13/19 04:20 Labs: Laboratory Last Values WBC 15.7 K/mm3 (4.5-11.0) H 10/13/19 04:20 RBC 3.64 M/mm3 (3.65-5.03) L 10/13/19 04:20 Hgb 10.9 gm/dl (11.8-15.2) L 10/13/19 04:20 Hct 33.1 % (35.5-45.6) L 10/13/19 04:20 MCV 91 fl (84-94) 10/13/19 04:20 MCH 30 pg (28-32) 10/13/19 04:20 MCHC 33 % (32-34) 10/13/19 04:20 RDW 15.8 % (13.2-15.2) H 10/13/19 04:20 Plt Count 488 K/mm3 (140-440) H 10/13/19 04:20 Add Manual Diff Complete 10/09/19 10:52 Total Counted 100 10/09/19 10:52 Seg Neutrophils % Nail Artist 10/09/19 10:52 Seg Neuts % (Manual) 93.0 % (40.0-70.0) H 10/09/19 10:52 Band Neutrophils % 1.0 % 10/09/19 10:52 Lymphocytes % (Manual) 5.0 % (13.4-35.0) L 10/09/19 10:52 Reactive Lymphs % (Man) 0 % 10/09/19 10:52 Monocytes % (Manual) 1.0 % (0.0-7.3) 10/09/19 10:52 Eosinophils % (Manual) 0 % (0.0-4.3) 10/09/19 10:52 Basophils % (Manual) 0 % (0.0-1.8) 10/09/19 10:52 Metamyelocytes % 0 % 10/09/19 10:52 Myelocytes % 0 % 10/09/19 10:52 Promyelocytes % 0 % 10/09/19 10:52 Blast Cells % 0 % 10/09/19 10:52 Nucleated RBC % Not Reportable 10/09/19 10:52 Seg Neutrophils # Man 15.4 K/mm3 (1.8-7.7) H 10/09/19 10:52 Band Neutrophils # 0.2 K/mm3 10/09/19 10:52 Lymphocytes # (Manual) 0.8 K/mm3 (1.2-5.4) L 10/09/19 10:52 Abs React Lymphs (Man) 0.0 K/mm3 10/09/19 10:52 Monocytes # (Manual) 0.2 K/mm3 (0.0-0.8) 10/09/19 10:52 Eosinophils # (Manual) 0.0 K/mm3 (0.0-0.4) 10/09/19 10:52 Basophils # (Manual) 0.0 K/mm3 (0.0-0.1) 10/09/19 10:52 Metamyelocytes # 0.0 K/mm3 10/09/19 10:52 Myelocytes # 0.0 K/mm3 10/09/19 10:52 Promyelocytes # 0.0 K/mm3 10/09/19 10:52 Blast Cells # 0.0 K/mm3 10/09/19 10:52 WBC Morphology Not Reportable 10/09/19 10:52 Hypersegmented Neuts Not Reportable 10/09/19 10:52 Hyposegmented Neuts Not Reportable 10/09/19 10:52 Hypogranular Neuts Not Reportable 10/09/19 10:52 Smudge Cells Not Reportable 10/09/19 10:52 Toxic Granulation Not Reportable 10/09/19 10:52 Toxic Vacuolation Not Reportable 10/09/19 10:52 Dohle Bodies Not Reportable 10/09/19 10:52 Pelger-Huet Anomaly Not Reportable 10/09/19 10:52 Andres Rods Not Reportable 10/09/19 10:52 Platelet Estimate Consistent w auto 10/09/19 10:52 Clumped Platelets Not Reportable 10/09/19 10:52 Plt Clumps, EDTA Not Reportable 10/09/19 10:52 Large Platelets Rare 10/09/19 10:52 Giant Platelets Not Reportable 10/09/19 10:52 Platelet Satelliting Not Reportable 10/09/19 10:52 Plt Morphology Comment Not Reportable 10/09/19 10:52 RBC Morphology Normal 10/09/19 10:52 Dimorphic RBCs Not Reportable 10/09/19 10:52 Polychromasia Not Reportable 10/09/19 10:52 Hypochromasia Not Reportable 10/09/19 10:52 Poikilocytosis Not Reportable 10/09/19 10:52 Anisocytosis Not Reportable 10/09/19 10:52 Microcytosis Not Reportable 10/09/19 10:52 Macrocytosis Not Reportable 10/09/19 10:52 Spherocytes Not Reportable 10/09/19 10:52 Pappenheimer Bodies Not Reportable 10/09/19 10:52 Sickle Cells Not Reportable 10/09/19 10:52 Target Cells Not Reportable 10/09/19 10:52 Tear Drop Cells Not Reportable 10/09/19 10:52 Ovalocytes Not Reportable 10/09/19 10:52 Helmet Cells Not Reportable 10/09/19 10:52 Varghese-Bonifay Bodies Not Reportable 10/09/19 10:52 [place] Rings Not Reportable 10/09/19 10:52 [place] Cells Not Reportable 10/09/19 10:52 Bite Cells Not Reportable 10/09/19 10:52 Crenated Cell Not Reportable 10/09/19 10:52 Elliptocytes Not Reportable 10/09/19 10:52 Acanthocytes (Spur) Not Reportable 10/09/19 10:52 Rouleaux Not Reportable 10/09/19 10:52 Hemoglobin C Crystals Not Reportable 10/09/19 10:52 Schistocytes Not Reportable 10/09/19 10:52 Malaria parasites Not Reportable 10/09/19 10:52 Toni Bodies Not Reportable 10/09/19 10:52 Hem Pathologist Commnt No 10/09/19 10:52 POC ABG pH 7.392 (7.35-7.45) 10/12/19 23:43 POC ABG pCO2 43.4 (35-45) 10/12/19 23:43 POC ABG pO2 84 (80-105) 10/12/19 23:43 POC ABG HCO3 26.4 (22-26 mml/L) 10/12/19 23:43 POC ABG Total CO2 28 (23-27mmol/L) 10/12/19 23:43 POC ABG O2 Sat 96 10/12/19 23:43 POC ABG Base Excess 2 ((-2) - (+3)mmol/L) 10/12/19 23:43 FiO2 40 % 10/12/19 23:43 Sodium 137 mmol/L (137-145) 10/13/19 04:20 Potassium 4.2 mmol/L (3.6-5.0) 10/13/19 04:20 Chloride 103.0 mmol/L (98-107) 10/13/19 04:20 Carbon Dioxide 23 mmol/L (22-30) 10/13/19 04:20 Anion Gap 15 mmol/L 10/13/19 04:20 BUN 28 mg/dL (9-20) H 10/13/19 04:20 Creatinine 0.8 mg/dL (0.8-1.5) 10/13/19 04:20 Estimated GFR > 60 ml/min 10/13/19 04:20 BUN/Creatinine Ratio 35 % 10/13/19 04:20 Glucose 79 mg/dL (75-100) 10/13/19 04:20 POC Glucose 117 (70-105) H 10/10/19 08:33 Hemoglobin A1c 5.7 % (4-6) 10/06/19 05:36 Lactic Acid 1.10 mmol/L (0.7-2.0) 10/13/19 04:20 Calcium 8.6 mg/dL (8.4-10.2) 10/13/19 04:20 Phosphorus 4.90 mg/dL (2.5-4.5) H 10/11/19 05:41 Magnesium 2.50 mg/dL (1.7-2.3) H 10/12/19 09:30 Total Bilirubin 0.60 mg/dL (0.1-1.2) 10/12/19 09:30 Direct Bilirubin 0.3 mg/dL (0-0.2) H 10/12/19 09:30 Indirect Bilirubin 0.3 mg/dL 10/12/19 09:30 AST 34 units/L (5-40) 10/12/19 09:30 ALT 14 units/L (7-56) 10/12/19 09:30 Alkaline Phosphatase 109 units/L (35-129) 10/12/19 09:30 Ammonia 49.0 umol/L (25-60) 10/13/19 04:20 Troponin T < 0.010 ng/mL (0.00-0.029) 10/09/19 17:23 Total Protein 5.1 g/dL (6.3-8.2) L 10/12/19 09:30 Albumin 2.2 g/dL (3.9-5) L 10/12/19 09:30 Albumin/Globulin Ratio 0.8 % 10/12/19 09:30 Urine Color Obdulia (Yellow) 10/11/19 06:23 Urine Turbidity Cloudy (Clear) 10/11/19 06:23 Urine pH 5.0 (5.0-7.0) 10/11/19 06:23 Ur Specific [place] 1.018 (1.003-1.030) 10/11/19 06:23 Urine Protein 30 mg/dl mg/dL (Negative) 10/11/19 06:23 Urine Glucose (UA) Neg mg/dL (Negative) 10/11/19 06:23 Urine Ketones Neg mg/dL (Negative) 10/11/19 06:23 Urine Blood Mod (Negative) 10/11/19 06:23 Urine Nitrite Neg (Negative) 10/11/19 06:23 Urine Bilirubin Neg (Negative) 10/11/19 06:23 Urine Urobilinogen < 2.0 mg/dL (<2.0) 10/11/19 06:23 Ur Leukocyte Esterase Neg (Negative) 10/11/19 06:23 Urine WBC (Auto) 3.0 /HPF (0.0-6.0) 10/11/19 06:23 Urine RBC (Auto) 3.0 /HPF (0.0-6.0) 10/11/19 06:23 Urine Bacteria (Auto) 1+ /HPF (Negative) 10/11/19 06:23 Urine Eosinophils None seen (None Seen) 10/11/19 06:23 Urine Creatinine 116.8 mg/dL (0.1-20.0) H 10/11/19 06:23 Urine Creatinine 118.2 mg/dL (0.1-20.0) H 10/11/19 06:23 Protein/Creatinin Ratio 0.89 10/11/19 06:23 Urine Sodium 14 mmol/L 10/11/19 06:23 Urine Total Protein 104 mg/dL (5-11.8) H 10/11/19 06:23 Urine Total Protein 105 mg/dL (5-11.8) H 10/11/19 06:23 Blood Type A POSITIVE 10/13/19 13:20 Antibody Screen Negative 10/13/19 13:20 Active Medications - Current Medications Current Medications: Generic Name Dose Route Start Last Admin Trade Name Freq PRN Reason Stop Dose Admin Acetaminophen 650 mg 10/05/19 21:22 10/09/19 05:09 Tylenol PO 650 mg Q4H PRN Administration Pain MILD(1-3)/Fever >100.5/ROMANO Albuterol 2.5 mg 10/05/19 21:36 Proventil IH Q4HRT PRN Shortness Of Breath Albuterol/Ipratropium 1 ampul 10/06/19 02:00 10/13/19 08:36 Duoneb *Not For Prn Use* IH Not Given Q6HRT VERÓNICA Arformoterol Tartrate 15 mcg 10/06/19 08:30 10/13/19 08:36 Brovana Nebu IH Not Given Q12HRT VERÓNICA Benzonatate 100 mg 10/09/19 14:00 10/13/19 13:03 Tessalon Perles PO Not Given Q8HR VERÓNICA Budesonide 0.5 mg 10/07/19 12:20 10/13/19 08:36 Pulmicort IH Not Given Q12HRT VERÓNICA Citalopram Hydrobromide 20 mg 10/06/19 10:00 10/13/19 09:11 Celexa PO 20 mg QDAY VERÓNICA Administration Folic Acid 1 mg 10/13/19 10:00 10/13/19 10:00 Folvite PO Not Given QDAY VERÓNICA Furosemide 40 mg 10/12/19 10:00 10/13/19 10:30 Lasix IV Not Given QDAY VERÓNICA Hydromorphone HCl 0.5 mg 10/05/19 21:22 10/13/19 06:59 Dilaudid IV 0.5 mg Q3H PRN Administration Pain , Severe (7-10) Metronidazole 500 mg in 100 mls @ 100 mls/hr 10/10/19 14:00 10/13/19 13:02 Flagyl 500 Mg/100 Ml IV 100 mls/hr Q8HR VERÓNICA Administration Protocol Cefepime HCl 2 gm in 100 mls @ 200 mls/hr 10/11/19 14:00 10/13/19 05:31 Cefepime/Ns 2 Gm/100 Ml IV 200 mls/hr Q8HR VERÓNICA Administration Protocol Fluconazole 200 mls @ 100 mls/hr 10/12/19 11:00 10/13/19 09:21 Diflucan IV 100 mls/hr Q24HR VERÓNICA Administration Protocol Sodium Chloride 1,000 mls @ 75 mls/hr 10/13/19 10:00 10/13/19 10:02 Nacl 0.9% 1000 Ml IV 10/15/19 23:59 75 mls/hr DIRECT VERÓNICA Administration Lorazepam 2 mg 10/12/19 09:22 Ativan IV Q1HR PRN CIWA-Ar 8-15 Metoprolol Tartrate 2.5 mg 10/13/19 12:00 10/13/19 11:21 Metoprolol IV 2.5 mg Q6HR VERÓNICA Administration Montelukast Sodium 10 mg 10/09/19 22:00 10/12/19 22:54 Singulair PO 10 mg QHS VERÓNICA Administration Multivitamins 1 each 10/13/19 10:00 10/13/19 10:00 Theragran Tab PO Not Given QDAY VERÓNICA Ondansetron HCl 4 mg 10/05/19 21:22 10/11/19 18:20 Zofran IV 4 mg Q3H PRN Administration Nausea And Vomiting Oxycodone/Acetaminophen 2 tab 10/06/19 12:26 10/12/19 18:45 Percocet 5/325 PO 2 tab Q6H PRN Administration Pain, Moderate (4-6) Pantoprazole Sodium 40 mg 10/06/19 10:00 10/13/19 10:00 Protonix PO Not Given BID VERÓNICA Sodium Chloride 10 ml 10/05/19 22:00 10/13/19 09:13 Sodium Chloride Flush Syringe 10 Ml IV 10 ml BID VERÓNICA Administration Sodium Chloride 10 ml 10/05/19 21:22 Sodium Chloride Flush Syringe 10 Ml IV PRN PRN LINE FLUSH Thiamine HCl 100 mg 10/13/19 10:00 10/13/19 10:00 Vitamin B-1 PO Not Given QDAY VERÓNICA Nutrition/Malnutrition Assess - Dietary Evaluation Nutrition/Malnutrition Findings: Nutrition Notes Start: 10/08/19 11:36 Freq: Status: Active Protocol: Document 10/08/19 11:36 LP (Rec: 10/08/19 11:41 LP [id number]) Nutrition Notes Need for Assessment generated from: MD Order Initial or Follow up Assessment Current Diagnosis COPD,Hypertension Other Pertinent Diagnosis AMI, Abdominal Fascial dishiscence S/P exp lap Current Diet cardiac Labs/Tests Reviewed Pertinent Medications Reviewed Height 6 ft Weight 127.006 kg [place] Body Weight (kg) 80.90 BMI 38.0 Weight Status Morbidly Obese Subjective/Other Information Consult for malnutrition. 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 Pt consumed 100% of breakfast this AM. Pt denies wt changes and there are no physical signs of malnutrition . Pt denies need for more food or supplement for protein. Burn Absent Trauma Absent GI Symptoms None Minimum of two criteria No physical signs of malnutrition #1 Nutrition Diagnosis Increased nutrient needs ( specify in comment below) Comments: Protein Etiology Sx As Evidenced by Signs and Symptoms Pt with multiple sx and exp lap Is patient on ventilator? No Is Patient Ambulatory and/or Out of Bed Yes REE-([place]. Jeor-ambulatory/OOB) [ [id number] NUTR.[id number]] Kcal/Kg value to use for calculation 15 Approximate Energy Requirements Using 1905 kcal/Kg Calculation Used for Recommendations Kcal/kg Additional Notes Protein needs are Nutrition Intervention Change Diet Order: Continue cardiac Goal #1 Continue meeting 80% of kcal or protein needs Anticipated Discharge Needs: Cardiac diet Revisit per MD consult or patient Sign Off request:
[2019-10-13] MEDS ORDERED: PHENYLEPHRINE/NS 1,000 MCG/10 ML SYRINGE (OR USE) IV ONE (18:01)
[2019-10-13] MEDS ORDERED: PROPOFOL 1,000 MG/100 ML BOTTLE IV ONE (18:03)
--- NOTE | 2019-10-13 18:05 | Post Anesthesia Evaluation ---
- Post Anesthesia Evaluation Patient Participated: No (sedated) Airway Patent: Yes Stable Respiratory Function: Yes Nausea/Vomiting: No Temp > 96.8F: Yes Pain Manageable: Yes Adequeate Hydration: Yes Anesthesia Complications: No Block Receding Appropriately: Not Applicable Patient on Ventilator: Yes (500x14, FiO2 100%, Peep 6; RT will get ABG 30mins after ICU arrival) Other Comments: Transported to ICU w/ monitors and ventilation via AMBU. VSS stable throughout. 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 Placed on vent by RT. VS at preop baseline. CXR and sedation orders placed.
--- NOTE | 2019-10-13 18:08 | Post Operative Note ---
Date of procedure: 10/13/19 (dictation:[id number]) Pre-op diagnosis: intra-abdominal infection Post-op diagnosis: other (intra-abdominal infection; disruption of bowel anastomosis.) Findings: heavy contamination of abdomen. bowel enterotomy from anastomosis completely open Procedure: 1) Re-opening of laparotomy 2) Abdominal washout 3) Colon stapled transection 4) Abthera Placement IVF - 1500cc EBL - 150cc UOP - 50cc Anesthesia: GETA Surgeon: ANKITA GAO Estimated blood loss: 50-100ml Pathology: list (culture swabs) Specimen disposition: to lab Condition: stable Disposition: ICU
[2019-10-13 18:34] LABS: ABG Base Excess -6.5 mmol/L (-2.0-3.0); ABG HCO3 22.5 mmol/L (20.0-26.0); ABG Methemoglobin 0.7 % (0.0-1.5); ABG PCO2 61.8 mm Hg; ABG PO2 130.7 mm Hg (80.0-90.0)
[2019-10-13 18:36] LABS: ABG PH 7.18 pH Units (7.350-7.450)
--- NOTE | 2019-10-13 18:55 | XRay Report ---
CHEST 1 VIEW INDICATION: ETT placement COMPARISON: Earlier exam same day FINDINGS: Support devices: Endotracheal tube has been placed and is in good position, 5 cm above the chetan. Na sogastric tube appears to pass into the stomach, although the distal end of the tube is not included on this image. Right PICC line position is unchanged. Heart: Normal and unchanged Lungs/Pleura: No acute pulmonary or pleural findings. Mild bibasilar atelectasis. IMPRESSION: 1. Endotracheal tube in proper position. Signer Name: Kiel Okeefe MD Signed: 10/13/2019 6:50 PM Workstation Name: [id number]
[2019-10-13] MEDS ORDERED: PROPOFOL 1,000 MG/100 ML BOTTLE IV SCH ×2 (19:00→20:00)
[2019-10-13] MEDS ORDERED: MINERAL OIL/PETROLATUM, WHITE OPHTH OINT 3.5 GM OU PRN (19:06)
[2019-10-13] MEDS ORDERED: LIP THERAPY VASELINE TP PRN (19:06)
[2019-10-13 20:21] LABS: ABG Base Excess -6.5 mmol/L (-2.0-3.0); ABG Methemoglobin 0.7 % (0.0-1.5); ABG Oxygen Saturation 95.3 % (95.0-99.0); ABG PCO2 43.7 mm Hg; ABG PH 7.278 pH Units (7.350-7.450); ABG PO2 82.8 mm Hg (80.0-90.0)
[2019-10-13] MEDS ORDERED: LORazepam 2 MG/ML VIAL IV PRN (21:22)
[2019-10-13] MEDS: MONTELUKAST 10 MG TAB PO SCH (21:50)
[2019-10-14] MEDS: METOPROLOL TARTRATE 5 MG/5 ML INJ IV SCH ×2 (00:05→08:13)
[2019-10-14] MEDS ORDERED: SODIUM CHLORIDE 0.9% 500 ML 500 ML IV ONE (02:07)
[2019-10-14] MEDS ORDERED: SODIUM CHLORIDE 0.9% 1000 ML 1,000 ML IV SCH (02:13)
--- NOTE | 2019-10-14 02:17 | Operative Report ---
PREOPERATIVE DIAGNOSIS: Intraabdominal infection. POSTOPERATIVE DIAGNOSES: Intraabdominal infection, disruption of the bowel anastomosis. PROCEDURES: 1. Reopening of laparotomy. 2. Abdominal washout. 3. Colon stapled transection. 4. ABThera placement. ATTENDING PHYSICIAN: Matias Krause M.D. ANESTHESIA: General. ESTIMATED BLOOD LOSS: 150 mL. FLUIDS: 1500 mL. URINE OUTPUT: 50 mL. FINDINGS: The patient had heavy contamination of the abdominal cavity with colonic contents. The enterotomy for creation of the bowel anastomosis had completely opened up. DRAINS: ABThera. COMPLICATIONS: None. DISPOSITION: Stable, transferred to ICU. INDICATIONS: This is a 54-year-old gentleman who has had a complicated hospital course after suffering a perforation during colonoscopy. The patient has had multiple operations and most recently, after a closure of the abdominal fascia from dehiscence, he developed a fluid collection on the right side of the abdomen, which was aspirated and drained by Interventional Radiology. It appeared to be feculent fluid. Initially, the patient seemed to show signs of improvement; however, today his white count went up to 15 and he became tachycardic overnight. The patient was assessed to be clinically worsening; therefore, decision was made for reexploration. Procedure, risks, benefits were explained to . Risks included but were not limited to infection, bleeding, pain, injury to surrounding structures, possible colostomy, possible need for multiple procedures in the future. understood and consented. OPERATIVE NOTE: The patient was brought to the operating room and placed on the table in supine position. After adequate general anesthesia was established, the patient was prepped and draped in the usual sterile fashion. Wound vac was removed. SCDs were in place. The patient was already on antibiotics. Timeout was called. I began by removing the midline sutures. The patient was showing evidence of healing of the midline wound. The fascia was together. It appeared as though it was slightly thinned out at the top 4 cm; however, the rest of it was intact very nicely. It actually required a little bit of extra effort to try to separate the fascia, but ultimately I was able to safely get into the abdominal cavity. Initially when we got in, the omentum was fairly clean. We did not see any evidence of any feculent drainage. As we approached the right gutter, then there was a large amount of drainage which was suctioned out. I began initially by trying to mobilize the omentum and small bowel. As I got closer to the right lower quadrant and pelvis, the small bowel was really stuck down. Primarily with finger dissection, I was able to free up the bowel without any significant injury. At the end when we ran the bowel, there were 2 areas that had a small serosal tear and possibly a serosal tear; both were reinforced with 3-0 silk sutures, closing it in a transverse manner to the orientation of the bowel. Ultimately, we worked our way over to the left lower quadrant and as I mobilized the omentum overlying the anastomosis that we had created, I began to see more and more colonic drainage. Ultimately, we were able to separate the omentum and see that the enterotomy that was left after stapled anastomosis that we closed with a TA stapler appeared to have completely opened up. My thought was that what may have happened is that at the time of his abdominal fascial dehiscence when we took him back to the operating room and everything was perfectly clean, I wonder if, when the bowel protruded through, it pulled on the anastomotic site such that the enterotomy closure site was pulled open, and as it had just opened up from the pulling on the bowel from the dehiscence, it did not have time to contaminate the abdomen yet. Later on, the contents began to drain and then collected in the pelvis and ultimately went up the right gutter. In any event, I did not feel that I would be able to adequately and safely just close that enterotomy site. Therefore, slightly proximal to where the anastomosis was, I transected the colon with a [id number] stapler. I closed the enterotomy to contain any further drainage with interrupted 3-0 silk sutures. I compressed that area multiple times and there was nothing coming out. We washed that area and then subsequently turned our attention to the rest of the abdomen. I completely opened up the fluid pocket above the liver, going all the way back. We thoroughly cleaned out the abdomen. The irrigant at the end was coming back clear. Once we had irrigated in between all the loops of small bowel over the liver, over the left upper quadrant, etc., we got all the areas including the pelvis and it always coming back clean. I went back to the left lower quadrant and checked again to make sure there was no delayed leakage. We did not see anything. Everything remained clear. There was no further content coming out. I felt as though we had gotten temporary control of that area. We washed that area one more time and then placed the ABThera. Prior to placing the ABThera, we had changed gloves as we had a lot of contamination on them. ABThera was placed. I placed four #1 Prolene sutures in the fascia to minimize the risk of fascial retraction. The blue sponge was placed. Adhesives were placed. We had a good seal on the wound VAC device. The patient tolerated the procedure well. There were no complications. All counts were correct at the end of the case. Our plan at this point is on Tuesday, which is 2 days from now, we will bring the patient back for a washout. I would like to mobilize that distal segment where the anastomosis was and resect that portion of bowel where the anastomosis had failed. Most likely, we will then return 2 days later, again washing out the abdomen and at that point, if everything was looking good and if he was doing well, we will create the colostomy. This plan has been explained to the and family, they understand. JOB# [id number] SARATH/LEO SANCHEZ
[2019-10-14] MEDS ORDERED: MINERAL OIL/PETROLATUM, WHITE OPHTH OINT 3.5 GM OU PRN (02:19)
--- NOTE | 2019-10-14 02:53 | XRay Report ---
Chest single view INDICATION: Chest pain IMPRESSION: The endotracheal tube terminates in good position about 4 cm above the chetan. Esophagoga stric tube and right arm PICC line both project in good position. Signer Name: Jus Paulson MD Signed: 10/14/2019 2:49 AM Workstation Name: [id number]
[2019-10-14] MEDS: fentaNYL DRIP Premix 2,000 MCG/100 ML BAG IV SCH ×2 (03:01→15:03)
[2019-10-14] MEDS: dilTIAZem/D5W 100 MG/100 ML BAG IV SCH ×2 (03:58→04:09)
[2019-10-14 05:08] LABS: Hematocrit 34.2 % (35.5-45.6); Hemoglobin 10.9 gm/dl (11.8-15.2); Mean Corpuscular HGB Conc 32 % (32-34); Mean Corpuscular Volume 94 fl (84-94); Platelet Count 442 K/mm3 (140-440); Red Blood Count 3.65 M/mm3 (3.65-5.03)
[2019-10-14 05:31] LABS: Calcium 7.4 mg/dL (8.4-10.2)
[2019-10-14 05:53] LABS: ABG Base Excess -5.8 mmol/L (-2.0-3.0); ABG HCO3 19.1 mmol/L (20.0-26.0); ABG Methemoglobin 0.7 % (0.0-1.5); ABG Oxygen Saturation 95.3 % (95.0-99.0); ABG PCO2 35.1 mm Hg; ABG PH 7.353 pH Units (7.350-7.450); ABG PO2 76.3 mm Hg (80.0-90.0)
[2019-10-14] MEDS: CEFEPIME/NS 2 GM/100 ML 2 GM/100 ML BAG IV SCH ×3 (06:00→21:35)
[2019-10-14] MEDS: metroNIDAZOLE/NS 500 MG/100 ML 500 MG/100 ML BAG IV SCH ×3 (06:00→21:35)
[2019-10-14] MEDS: IPRATROPIUM/ALBUTEROL SULFATE 3 ML AMPUL.NEB IH SCH ×4 (06:18→21:40)
[2019-10-14] MEDS: BENZONATATE 100 MG CAP PO SCH ×3 (06:26→23:47)
[2019-10-14] MEDS: LORazepam 100 MG in SODIUM CHLORIDE 0.9% 50 ML, EMPTY BAG 0 ML IV SCH (07:00)
[2019-10-14] MEDS: BUDESONIDE 0.5 MG/2 ML NEBU IH SCH ×2 (07:16→21:38)
[2019-10-14] MEDS: ARFORMOTEROL 15 MCG/2 ML NEBU IH SCH ×2 (07:16→21:40)
[2019-10-14] MEDS ORDERED: SODIUM CHLORIDE 0.9% 1000 ML 3,000 ML IV ONE (07:56)
[2019-10-14] MEDS ORDERED: METOPROLOL TARTRATE 5 MG/5 ML INJ IV ONE ×2 (08:04→08:07)
[2019-10-14] MEDS ORDERED: SODIUM CHLORIDE 0.9% 1000 ML 1,000 ML IV ONE (08:13)
--- NOTE | 2019-10-14 08:51 | Progress Note ---
Subjective Date of service: 10/14/19 Principal diagnosis: acute renal failure Interval history: A/P Seen ICU with family Reviewed gen surgery note, abdomen heavily contaminated after wound reopened. HR 140-150, SVT/Sinus Tachycardia, suspect sepsis/inflammatory response. IVF running , albumin 2.2, third-spacing likely. will try esmolol gtt to control HR, b-marilyn prn (metoprolol) help control HR without effecting BP. Prior history: Severe abdominal pain s/p exploratory laparotomy, abdominal washout, closure of abdominal fascia with wound vac placement. Recent colon resection for bowel perforation following a colonoscopy Atypical chest pain chest CT reports left lower lobe pleural effusion with suspected left upper lobe pneumonia. troponins are normal Hx of [place]/CAD PCI of the circumflex and second vessel POBA of the distal LAD occlusion. Left ventricle fraction 45-50%. Tobacco abuse COPD Hypertension Hyperlipidemia Objective Vital Signs Temp Pulse Pulse Pulse Pulse Pulse Pulse 10/14/19 08:45 139 H 10/14/19 08:30 149 H 10/14/19 08:15 147 H 10/14/19 08:13 147 H 10/14/19 08:11 158 H 10/14/19 08:00 150 H 10/14/19 07:45 161 H 10/14/19 07:41 158 H 10/14/19 07:31 162 H 10/14/19 07:21 164 H 10/14/19 07:13 166 H 10/14/19 07:11 159 H 10/14/19 07:01 153 H 10/14/19 06:51 170 H 10/14/19 06:41 171 H 10/14/19 06:30 153 H 10/14/19 06:21 158 H 10/14/19 06:11 164 H 10/14/19 06:01 160 H 10/14/19 05:51 163 H 10/14/19 05:41 164 H 10/14/19 05:31 152 H 10/14/19 05:22 161 H 10/14/19 05:21 159 H 10/14/19 05:11 162 H 10/14/19 05:01 10/14/19 04:51 154 H 10/14/19 04:41 156 H 10/14/19 04:31 155 H 10/14/19 04:21 160 H 10/14/19 04:11 164 H 10/14/19 04:09 175 H 10/14/19 04:01 163 H 10/14/19 04:00 100.6 F H 142 H 142 H 10/14/19 03:58 169 H 10/14/19 03:51 174 H 10/14/19 03:41 182 H 10/14/19 03:31 176 H 10/14/19 03:21 173 H 10/14/19 03:11 165 H 10/14/19 03:01 165 H 10/14/19 02:51 165 H 10/14/19 02:41 159 H 10/14/19 02:31 165 H 10/14/19 02:21 169 H 10/14/19 02:11 166 H 10/14/19 02:01 167 H 10/14/19 01:51 167 H 10/14/19 01:41 171 H 10/14/19 01:31 164 H 10/14/19 01:21 159 H 10/14/19 01:11 168 H 10/14/19 01:00 164 H 10/14/19 00:51 164 H 10/14/19 00:41 98.9 F 161 H 10/14/19 00:31 165 H 10/14/19 00:21 165 H 10/14/19 00:11 148 H 10/14/19 00:05 156 H 10/14/19 00:01 148 H 10/14/19 00:00 156 H 156 H 156 H 10/13/19 23:51 142 H 10/13/19 23:41 164 H 10/13/19 23:31 165 H 10/13/19 23:21 169 H 10/13/19 23:10 170 H 10/13/19 23:00 174 H 10/13/19 22:50 168 H 10/13/19 22:40 169 H 10/13/19 22:30 168 H 10/13/19 22:20 166 H 10/13/19 22:10 161 H 10/13/19 22:00 168 H 10/13/19 21:50 169 H 10/13/19 21:40 155 H 10/13/19 21:30 165 H 10/13/19 21:20 155 H 10/13/19 21:10 162 H 10/13/19 21:00 146 H 10/13/19 20:50 152 H 10/13/19 20:47 152 H 10/13/19 20:40 141 H 10/13/19 20:30 183 H 10/13/19 20:20 170 H 10/13/19 20:10 168 H 10/13/19 20:00 99.0 F 151 H 147 H 164 H 164 H 164 H 10/13/19 19:50 174 H 10/13/19 19:40 177 H 10/13/19 19:30 179 H 10/13/19 19:20 175 H 10/13/19 19:10 166 H 10/13/19 19:00 166 H 10/13/19 18:50 163 H 10/13/19 18:40 169 H 10/13/19 18:37 10/13/19 18:30 98.4 F 171 H 10/13/19 18:20 151 H 10/13/19 18:15 169 H 10/13/19 18:10 176 H 10/13/19 18:00 153 H 10/13/19 17:56 151 H 10/13/19 17:55 158 H 10/13/19 17:50 144 H 10/13/19 17:45 140 H 10/13/19 17:40 141 H 10/13/19 17:38 98.6 F 140 H 10/13/19 14:00 152 H 10/13/19 13:50 151 H 10/13/19 13:40 150 H 10/13/19 13:30 10/13/19 13:20 150 H 10/13/19 13:10 141 H 10/13/19 13:00 151 H 10/13/19 12:57 152 H 10/13/19 12:50 152 H 10/13/19 12:40 152 H 10/13/19 12:30 150 H 10/13/19 12:20 147 H 10/13/19 12:10 147 H 10/13/19 12:00 98.0 F 148 H 10/13/19 11:50 146 H 10/13/19 11:43 146 H 10/13/19 11:40 144 H 10/13/19 11:30 144 H 10/13/19 11:21 148 H 10/13/19 11:20 147 H 10/13/19 11:10 148 H 10/13/19 11:00 147 H 10/13/19 10:50 148 H 10/13/19 10:40 147 H 10/13/19 10:30 147 H 10/13/19 10:20 146 H 10/13/19 10:10 145 H 10/13/19 10:00 147 H 147 H 147 H 10/13/19 09:58 147 H 10/13/19 09:50 146 H 10/13/19 09:40 146 H 10/13/19 09:30 148 H 10/13/19 09:11 148 H Resp Resp BP Pulse Ox 10/14/19 08:45 31 H 96/62 97 10/14/19 08:30 33 H 106/62 97 10/14/19 08:15 33 H 101/56 98 10/14/19 08:13 101/66 10/14/19 08:11 100/60 10/14/19 08:00 32 H 88/61 97 10/14/19 07:45 35 H 98/60 97 10/14/19 07:41 34 H 89/56 97 10/14/19 07:31 33 H 89/56 96 10/14/19 07:21 33 H 108/46 97 10/14/19 07:13 86/34 96 10/14/19 07:11 34 H 86/34 99 10/14/19 07:01 33 H 75/42 97 10/14/19 06:51 33 H 75/42 97 10/14/19 06:41 31 H 84/49 97 10/14/19 06:30 31 H 84/49 96 10/14/19 06:21 31 H 72/45 96 10/14/19 06:11 31 H 87/41 96 10/14/19 06:01 33 H 72/46 95 10/14/19 05:51 34 H 82/49 95 10/14/19 05:41 31 H 87/41 97 10/14/19 05:31 36 H 110/60 97 10/14/19 05:22 72/46 95 10/14/19 05:21 36 H 110/60 97 10/14/19 05:11 89/46 97 10/14/19 05:01 89/46 96 10/14/19 04:51 35 H 89/46 97 10/14/19 04:41 33 H 96/53 98 10/14/19 04:31 34 H 96/53 97 10/14/19 04:21 35 H 175/134 96 10/14/19 04:11 32 H 175/134 96 10/14/19 04:09 175/134 10/14/19 04:01 33 H 175/134 96 10/14/19 04:00 22 95 10/14/19 03:58 167/96 10/14/19 03:51 36 H 85/43 96 10/14/19 03:41 35 H 204/126 96 10/14/19 03:31 36 H 204/126 96 10/14/19 03:21 38 H 204/126 97 10/14/19 03:11 41 H 138/119 97 10/14/19 03:01 38 H 102/62 96 10/14/19 02:51 38 H 102/62 97 10/14/19 02:41 38 H 106/58 97 10/14/19 02:31 38 H 106/58 97 10/14/19 02:21 40 H 96/51 96 10/14/19 02:11 40 H 134/66 96 10/14/19 02:01 41 H 134/66 96 10/14/19 01:51 41 H 109/65 97 10/14/19 01:41 39 H 113/68 97 10/14/19 01:31 47 H 134/66 96 10/14/19 01:21 42 H 134/66 97 10/14/19 01:11 43 H 109/55 97 10/14/19 01:00 41 H 109/55 97 10/14/19 00:51 43 H 94/52 96 10/14/19 00:41 36 H 104/60 97 10/14/19 00:31 44 H 104/60 97 10/14/19 00:21 40 H 97/58 97 10/14/19 00:11 42 H 101/50 97 10/14/19 00:05 112/54 10/14/19 00:01 41 H 101/50 97 10/14/19 00:00 32 H 97 10/13/19 23:51 41 H 89/51 96 10/13/19 23:41 43 H 116/61 96 10/13/19 23:31 43 H 116/61 97 10/13/19 23:21 44 H 119/39 98 10/13/19 23:10 41 H 119/39 97 10/13/19 23:00 40 H 79/58 98 10/13/19 22:50 39 H 79/58 98 10/13/19 22:40 45 H 106/22 98 10/13/19 22:30 40 H 76/38 100 10/13/19 22:20 38 H 76/38 100 10/13/19 22:10 35 H 92/53 100 10/13/19 22:00 38 H 101/56 99 10/13/19 21:50 31 H 101/56 99 10/13/19 21:40 40 H 101/52 10/13/19 21:30 35 H 87/49 10/13/19 21:20 36 H 103/45 98 10/13/19 21:10 36 H 95/38 98 10/13/19 21:00 33 H 95/38 98 10/13/19 20:50 33 H 81/51 95 10/13/19 20:47 82/46 10/13/19 20:40 32 H 102/41 95 10/13/19 20:30 37 H 102/41 10/13/19 20:20 32 H 111/34 94 10/13/19 20:10 31 H 99/50 10/13/19 20:00 33 H 33 H 95/40 95 10/13/19 19:50 31 H 95/40 97 10/13/19 19:40 23 97/46 96 10/13/19 19:30 28 H 87/46 95 10/13/19 19:20 28 H 86/43 95 10/13/19 19:10 24 106/46 96 10/13/19 19:00 23 96/55 96 10/13/19 18:50 23 101/48 96 10/13/19 18:40 22 107/56 97 10/13/19 18:37 20 10/13/19 18:30 20 138/72 98 10/13/19 18:20 15 139/63 98 10/13/19 18:15 23 139/63 99 10/13/19 18:10 21 145/80 99 10/13/19 18:00 28 H 149/71 99 10/13/19 17:56 12 100 10/13/19 17:55 17 150/68 99 10/13/19 17:50 12 149/71 100 10/13/19 17:45 12 139/73 100 10/13/19 17:40 12 165/78 100 10/13/19 17:38 10 L 160/76 100 10/13/19 14:00 32 H 116/72 95 10/13/19 13:50 31 H 115/58 96 10/13/19 13:40 31 H 120/68 96 10/13/19 13:30 31 H 120/68 95 10/13/19 13:20 32 H 122/65 95 10/13/19 13:10 30 H 110/69 95 10/13/19 13:00 35 H 110/69 95 10/13/19 12:57 115/64 10/13/19 12:50 38 H 115/64 95 10/13/19 12:40 30 H 115/70 95 10/13/19 12:30 29 H 115/70 95 10/13/19 12:20 34 H 126/73 94 10/13/19 12:10 119/66 95 10/13/19 12:00 32 H 119/66 94 10/13/19 11:50 33 H 130/72 94 10/13/19 11:43 34 H 128/71 94 10/13/19 11:40 33 H 128/71 96 10/13/19 11:30 33 H 128/71 96 10/13/19 11:21 124/76 10/13/19 11:20 29 H 124/76 96 10/13/19 11:10 32 H 126/73 97 10/13/19 11:00 30 H 126/73 10/13/19 10:50 26 H 123/69 10/13/19 10:40 32 H 120/68 95 10/13/19 10:30 28 H 120/68 97 10/13/19 10:20 28 H 119/79 96 10/13/19 10:10 31 H 108/60 96 10/13/19 10:00 27 H 112/65 96 10/13/19 09:58 107/69 10/13/19 09:50 29 H 107/69 95 10/13/19 09:40 29 H 110/51 95 10/13/19 09:30 29 H 108/60 95 10/13/19 09:11 102/57 - Physical Examination General: Other (intubated) HEENT: Positive: PERRL Neck: Positive: neck supple, trachea midline Cardiac: Positive: Reg Rate and Rhythm, S1/S2, Tachycardia Lungs: Positive: Normal Exam Abdomen: Positive: Other (abdominal wound vac is in place). Negative: Pulsations/Bruits Extremities: Present: +1 Edema - Labs and Meds CBC 10/14/19 Range/Units 04:47 WBC 24.2 H (4.5-11.0) K/mm3 RBC 3.65 (3.65-5.03) M/mm3 Hgb 10.9 L (11.8-15.2) gm/dl Hct 34.2 L (35.5-45.6) % Plt Count 442 H (140-440) K/mm3 Comprehensive Metabolic Panel 10/14/19 Range/Units 04:47 Sodium 141 (137-145) mmol/L Potassium 5.1 H D (3.6-5.0) mmol/L Chloride 109.2 H (98-107) mmol/L Carbon Dioxide 17 L (22-30) mmol/L BUN 38 H (9-20) mg/dL Creatinine 1.8 H D (0.8-1.5) mg/dL Glucose 104 H (75-100) mg/dL Calcium 7.4 L (8.4-10.2) mg/dL
--- NOTE | 2019-10-14 09:04 | Progress Note ---
Assessment and Plan Assessment and plan: 54 yo male with hx of CAD, IA, emphysema, COPD who presents with prolonged complicated course as a result of a bowel perforation. He has had 3 surgeries over the course of the past 10 days. On admission, after coughing a portion of his intestines protruded through the wound. He has severe 8/10 pain with cough and movement. No vomiting. No fever. * Went to OR for ex lap with closure of abdominal wall and wound vac placement (10/05) * Continued to decline with possible Air vs fluid, 10/10/19 IR went in and placed two drains, Noted to have possible fecal material * Patient continued to have Tachycardia and with Altred sensorium, Started on CIWA protocol due to hx of ETOH abuse, 6pack a day * Renal failure improved, milds, Cardiology, Pulmonary, Nephrology and ID consulted, Patient placed on Emperic abx due to concern of pulmonary consolidation * Returned to the OR 10/13/19 due to concern for intra-abdominal infection and was found to have with heavy contamination of abdomen patent had disruption of bowel anastomosis, abdominal washout, abthera placement and colon stapled transection and left bowel enterotomy from anastomosis completely open Dehiscence of closure of fascia Sepsis secondary to Bowel leak at anastemosis site GUILLERMO on CKD secondary to ATN Severe Metabolic acidosis improving Acute Toxic Metabolic Encephalopathy Hyperkalemia Acute Blood loss anemia- Excepted Severe Sepsis Morbid obesity Moderate Protein calorie malnutrition secondary to surgery GUILLERMO on CKD secondary to ATN Hypotension Pneumonia,presumed GNR Sinus Tachycardia Delirium Tremens Acute Respiratory failure on full ventilatory support Hyperlpidemia HTN Atypical chest pain- secondary to penumonitis Atlectasis- expected PLan Continue supportive care, continue on Vent- NO Weaning planned for now Discussed with Surgeon and Stonemason Apprentice TPN TO start tomorrow Aggressive fluid resuscitation Hold lasix Continue NEBS Pulmonary toliet and VAP bundle Replace Electrolytes Give an Amp of Sodium Bicarb Plan to return to OR on Tuesday Discussed with spouse at bedside. Pressure ulcer prevention techniques Wound care consult Abx per ID PT/OT when able AM LABS DVT/GI PROPHY The high probability of a clinically significant, sudden or life threatening deterioration of the [pulmonary, abdominal] system(s) required my full and direct attention, intervention and personal management. The aggregate critical care time was [45] minutes. This time is in addition to time spent performing reported procedures but includes the following: [x] Data Review and interpretation [x] Patient assessment and monitoring of vital signs [x] Documentation [x] Medication orders and management History Interval history: Patient seen and examined, Remains intubated, post surgery 10/13/19 Hospitalist Physical - Physical exam Narrative exam: Narrative exam: General appearance: sedated, on Full MVS, well-nourished - EENT Eyes: Present: PERRL, ETT in place ENT: hearing intact, clear oral mucosa, dentition normal - Neck Neck: Present: supple, normal ROM - Respiratory: good air entry on full ventilatory support - Cardiovascular Rhythm: irregularly irregular, tachycardia Heart Sounds: Present: S1 & S2 - Extremities Extremities: no ischemia, pulses intact, pulses symmetrical, +2 edema, normal temperature, normal color Extremity abnormal: erythema, generalized anasacar - Abdominal: Midline incision in abdomen-woundvac in place, Wound vac in with increased output General gastrointestinal: soft, Hypoactive - Integumentary Integumentary: Present: clear, warm, - Psychiatric Psychiatric: sedated - Neurologic Neurologic: sedated - Constitutional Vitals: Temp Pulse Resp BP Pulse Ox 100.6 F H 158 H 32 H 96/62 96 10/14/19 04:00 10/14/19 08:53 10/14/19 08:53 10/14/19 08:45 10/14/19 08:53 General appearance: Present: no acute distress Results - Labs CBC & Chem 7: 10/14/19 04:47 10/14/19 04:47 Labs: Laboratory Last Values WBC 24.2 K/mm3 (4.5-11.0) H 10/14/19 04:47 RBC 3.65 M/mm3 (3.65-5.03) 10/14/19 04:47 Hgb 10.9 gm/dl (11.8-15.2) L 10/14/19 04:47 Hct 34.2 % (35.5-45.6) L 10/14/19 04:47 MCV 94 fl (84-94) 10/14/19 04:47 MCH 30 pg (28-32) 10/14/19 04:47 MCHC 32 % (32-34) 10/14/19 04:47 RDW 17.0 % (13.2-15.2) H 10/14/19 04:47 Plt Count 442 K/mm3 (140-440) H 10/14/19 04:47 Add Manual Diff Complete 10/09/19 10:52 Total Counted 100 10/09/19 10:52 Seg Neutrophils % Personnel Manager 10/09/19 10:52 Seg Neuts % (Manual) 93.0 % (40.0-70.0) H 10/09/19 10:52 Band Neutrophils % 1.0 % 10/09/19 10:52 Lymphocytes % (Manual) 5.0 % (13.4-35.0) L 10/09/19 10:52 Reactive Lymphs % (Man) 0 % 10/09/19 10:52 Monocytes % (Manual) 1.0 % (0.0-7.3) 10/09/19 10:52 Eosinophils % (Manual) 0 % (0.0-4.3) 10/09/19 10:52 Basophils % (Manual) 0 % (0.0-1.8) 10/09/19 10:52 Metamyelocytes % 0 % 10/09/19 10:52 Myelocytes % 0 % 10/09/19 10:52 Promyelocytes % 0 % 10/09/19 10:52 Blast Cells % 0 % 10/09/19 10:52 Nucleated RBC % Not Reportable 10/09/19 10:52 Seg Neutrophils # Man 15.4 K/mm3 (1.8-7.7) H 10/09/19 10:52 Band Neutrophils # 0.2 K/mm3 10/09/19 10:52 Lymphocytes # (Manual) 0.8 K/mm3 (1.2-5.4) L 10/09/19 10:52 Abs React Lymphs (Man) 0.0 K/mm3 10/09/19 10:52 Monocytes # (Manual) 0.2 K/mm3 (0.0-0.8) 10/09/19 10:52 Eosinophils # (Manual) 0.0 K/mm3 (0.0-0.4) 10/09/19 10:52 Basophils # (Manual) 0.0 K/mm3 (0.0-0.1) 10/09/19 10:52 Metamyelocytes # 0.0 K/mm3 10/09/19 10:52 Myelocytes # 0.0 K/mm3 10/09/19 10:52 Promyelocytes # 0.0 K/mm3 10/09/19 10:52 Blast Cells # 0.0 K/mm3 10/09/19 10:52 WBC Morphology Not Reportable 10/09/19 10:52 Hypersegmented Neuts Not Reportable 10/09/19 10:52 Hyposegmented Neuts Not Reportable 10/09/19 10:52 Hypogranular Neuts Not Reportable 10/09/19 10:52 Smudge Cells Not Reportable 10/09/19 10:52 Toxic Granulation Not Reportable 10/09/19 10:52 Toxic Vacuolation Not Reportable 10/09/19 10:52 Dohle Bodies Not Reportable 10/09/19 10:52 Pelger-Huet Anomaly Not Reportable 10/09/19 10:52 Andres Rods Not Reportable 10/09/19 10:52 Platelet Estimate Consistent w auto 10/09/19 10:52 Clumped Platelets Not Reportable 10/09/19 10:52 Plt Clumps, EDTA Not Reportable 10/09/19 10:52 Large Platelets Rare 10/09/19 10:52 Giant Platelets Not Reportable 10/09/19 10:52 Platelet Satelliting Not Reportable 10/09/19 10:52 Plt Morphology Comment Not Reportable 10/09/19 10:52 RBC Morphology Normal 10/09/19 10:52 Dimorphic RBCs Not Reportable 10/09/19 10:52 Polychromasia Not Reportable 10/09/19 10:52 Hypochromasia Not Reportable 10/09/19 10:52 Poikilocytosis Not Reportable 10/09/19 10:52 Anisocytosis Not Reportable 10/09/19 10:52 Microcytosis Not Reportable 10/09/19 10:52 Macrocytosis Not Reportable 10/09/19 10:52 Spherocytes Not Reportable 10/09/19 10:52 Pappenheimer Bodies Not Reportable 10/09/19 10:52 Sickle Cells Not Reportable 10/09/19 10:52 Target Cells Not Reportable 10/09/19 10:52 Tear Drop Cells Not Reportable 10/09/19 10:52 Ovalocytes Not Reportable 10/09/19 10:52 Helmet Cells Not Reportable 10/09/19 10:52 [place] Bodies Not Reportable 10/09/19 10:52 [place] Rings Not Reportable 10/09/19 10:52 Bishnu Cells Not Reportable 10/09/19 10:52 Bite Cells Not Reportable 10/09/19 10:52 Crenated Cell Not Reportable 10/09/19 10:52 Elliptocytes Not Reportable 10/09/19 10:52 Acanthocytes (Spur) Not Reportable 10/09/19 10:52 Rouleaux Not Reportable 10/09/19 10:52 Hemoglobin C Crystals Not Reportable 10/09/19 10:52 Schistocytes Not Reportable 10/09/19 10:52 Malaria parasites Not Reportable 10/09/19 10:52 Toni Bodies Not Reportable 10/09/19 10:52 Hem Pathologist Commnt No 10/09/19 10:52 POC ABG pH 7.392 (7.35-7.45) 10/12/19 23:43 ABG pH 7.353 pH Units (7.350-7.450) 10/14/19 05:40 POC ABG pCO2 43.4 (35-45) 10/12/19 23:43 ABG pCO2 35.1 mm Hg 10/14/19 05:40 POC ABG pO2 84 (80-105) 10/12/19 23:43 ABG pO2 76.3 mm Hg (80.0-90.0) L 10/14/19 05:40 POC ABG HCO3 26.4 (22-26 mml/L) 10/12/19 23:43 ABG HCO3 19.1 mmol/L (20.0-26.0) L 10/14/19 05:40 POC ABG Total CO2 28 (23-27mmol/L) 10/12/19 23:43 POC ABG O2 Sat 96 10/12/19 23:43 ABG O2 Saturation 95.3 % (95.0-99.0) 10/14/19 05:40 ABG O2 Content 14.4 (0.0-44) 10/14/19 05:40 POC ABG Base Excess 2 ((-2) - (+3)mmol/L) 10/12/19 23:43 ABG Base Excess -5.8 mmol/L (-2.0-3.0) L 10/14/19 05:40 ABG Hemoglobin 10.9 gm/dl (14.0-18.0) L 10/14/19 05:40 ABG Carboxyhemoglobin 1.3 % (0.0-5.0) 10/14/19 05:40 ABG Methemoglobin 0.7 % (0.0-1.5) 10/14/19 05:40 Oxyhemoglobin 93.4 % (95.0-99.0) L 10/14/19 05:40 FiO2 60 % 10/14/19 05:40 Sodium 141 mmol/L (137-145) 10/14/19 04:47 Potassium 5.1 mmol/L (3.6-5.0) H D 10/14/19 04:47 Chloride 109.2 mmol/L (98-107) H 10/14/19 04:47 Carbon Dioxide 17 mmol/L (22-30) L 10/14/19 04:47 Anion Gap 20 mmol/L 10/14/19 04:47 BUN 38 mg/dL (9-20) H 10/14/19 04:47 Creatinine 1.8 mg/dL (0.8-1.5) H D 10/14/19 04:47 Estimated GFR 39 ml/min 10/14/19 04:47 BUN/Creatinine Ratio 21 % 10/14/19 04:47 Glucose 104 mg/dL (75-100) H 10/14/19 04:47 POC Glucose 92 (70-105) 10/13/19 17:56 Hemoglobin A1c 5.7 % (4-6) 10/06/19 05:36 Lactic Acid 1.10 mmol/L (0.7-2.0) 10/13/19 04:20 Calcium 7.4 mg/dL (8.4-10.2) L 10/14/19 04:47 Phosphorus 4.90 mg/dL (2.5-4.5) H 10/11/19 05:41 Magnesium 2.50 mg/dL (1.7-2.3) H 10/12/19 09:30 Total Bilirubin 0.60 mg/dL (0.1-1.2) 10/12/19 09:30 Direct Bilirubin 0.3 mg/dL (0-0.2) H 10/12/19 09:30 Indirect Bilirubin 0.3 mg/dL 10/12/19 09:30 AST 34 units/L (5-40) 10/12/19 09:30 ALT 14 units/L (7-56) 10/12/19 09:30 Alkaline Phosphatase 109 units/L (35-129) 10/12/19 09:30 Ammonia 49.0 umol/L (25-60) 10/13/19 04:20 Troponin T < 0.010 ng/mL (0.00-0.029) 10/09/19 17:23 Total Protein 5.1 g/dL (6.3-8.2) L 10/12/19 09:30 Albumin 2.2 g/dL (3.9-5) L 10/12/19 09:30 Albumin/Globulin Ratio 0.8 % 10/12/19 09:30 Urine Color Obdulia (Yellow) 10/11/19 06:23 Urine Turbidity Cloudy (Clear) 10/11/19 06:23 Urine pH 5.0 (5.0-7.0) 10/11/19 06:23 Ur Specific [place] 1.018 (1.003-1.030) 10/11/19 06:23 Urine Protein 30 mg/dl mg/dL (Negative) 10/11/19 06:23 Urine Glucose (UA) Neg mg/dL (Negative) 10/11/19 06:23 Urine Ketones Neg mg/dL (Negative) 10/11/19 06:23 Urine Blood Mod (Negative) 10/11/19 06:23 Urine Nitrite Neg (Negative) 10/11/19 06:23 Urine Bilirubin Neg (Negative) 10/11/19 06:23 Urine Urobilinogen < 2.0 mg/dL (<2.0) 10/11/19 06:23 Ur Leukocyte Esterase Neg (Negative) 10/11/19 06:23 Urine WBC (Auto) 3.0 /HPF (0.0-6.0) 10/11/19 06:23 Urine RBC (Auto) 3.0 /HPF (0.0-6.0) 10/11/19 06:23 Urine Bacteria (Auto) 1+ /HPF (Negative) 10/11/19 06:23 Urine Eosinophils None seen (None Seen) 10/11/19 06:23 Urine Creatinine 116.8 mg/dL (0.1-20.0) H 10/11/19 06:23 Urine Creatinine 118.2 mg/dL (0.1-20.0) H 10/11/19 06:23 Protein/Creatinin Ratio 0.89 10/11/19 06:23 Urine Sodium 14 mmol/L 10/11/19 06:23 Urine Total Protein 104 mg/dL (5-11.8) H 10/11/19 06:23 Urine Total Protein 105 mg/dL (5-11.8) H 10/11/19 06:23 Blood Type A POSITIVE 10/13/19 13:20 Antibody Screen Negative 10/13/19 13:20 Active Medications - Current Medications Current Medications: Generic Name Dose Route Start Last Admin Trade Name Freq PRN Reason Stop Dose Admin Acetaminophen 650 mg 10/05/19 21:22 10/09/19 05:09 Tylenol PO 650 mg Q4H PRN Administration Pain MILD(1-3)/Fever >100.5/ROMANO Albuterol 2.5 mg 10/05/19 21:36 Proventil IH Q4HRT PRN Shortness Of Breath Albuterol/Ipratropium 1 ampul 10/06/19 02:00 10/14/19 07:16 Duoneb *Not For Prn Use* IH Not Given Q6HRT VERÓNICA Arformoterol Tartrate 15 mcg 10/06/19 08:30 10/14/19 07:16 Brovana Nebu IH Not Given Q12HRT VERÓNICA Benzonatate 100 mg 10/09/19 14:00 10/14/19 06:26 Tessalon Perles PO Not Given Q8HR VERÓNICA Budesonide 0.5 mg 10/07/19 12:20 10/14/19 07:16 Pulmicort IH Not Given Q12HRT EVRÓNICA Citalopram Hydrobromide 20 mg 10/06/19 10:00 10/13/19 09:11 Celexa PO 20 mg QDAY VERÓNICA Administration Fentanyl 50 mcg 10/14/19 02:19 Sublimaze IV Q10MIN PRN ANALGESIA Folic Acid 1 mg 10/13/19 10:00 10/13/19 10:00 Folvite PO Not Given QDAY VERÓNICA Furosemide 40 mg 10/12/19 10:00 10/13/19 10:30 Lasix IV Not Given QDAY VERÓNICA Hydromorphone HCl 0.5 mg 10/05/19 21:22 10/13/19 06:59 Dilaudid IV 0.5 mg Q3H PRN Administration Pain , Severe (7-10) Hydromorphone HCl 0.5 mg 10/13/19 18:16 10/13/19 18:35 Dilaudid IV 0.5 mg Q10MIN PRN Administration Pain , Severe (7-10) Metronidazole 500 mg in 100 mls @ 100 mls/hr 10/10/19 14:00 10/13/19 22:04 Flagyl 500 Mg/100 Ml IV 100 mls/hr Q8HR VERÓNICA Administration Protocol Cefepime HCl 2 gm in 100 mls @ 200 mls/hr 10/11/19 14:00 10/13/19 22:04 Cefepime/Ns 2 Gm/100 Ml IV 200 mls/hr Q8HR VERÓNICA Administration Protocol Fluconazole 200 mls @ 100 mls/hr 10/12/19 11:00 10/13/19 09:21 Diflucan IV 100 mls/hr Q24HR VERÓNICA Administration Protocol Lorazepam 100 mg/ Sodium 100 mls @ 1 mls/hr 10/13/19 22:00 Chloride/ Miscellaneous IV Information TITR VERÓNICA Protocol 1 MG/HR Sodium Chloride 1,000 mls @ 125 mls/hr 10/14/19 02:13 10/14/19 03:14 Nacl 0.9% 1000 Ml IV 10/14/19 10:12 125 mls/hr DIRECT VERÓNICA Administration Protocol Sodium Chloride 1,000 mls @ 250 mls/hr 10/14/19 11:00 Nacl 0.9% 1000 Ml IV DIRECT VERÓNICA Diltiazem HCl 100 mg in 100 mls @ 5 mls/hr 10/14/19 03:00 10/14/19 07:00 Cardizem/D5w 100mg/100ml IV 0 mg/hr TITR VERÓNICA 0 mls/hr Titration Protocol 5 MG/HR Fentanyl Citrate 2,000 mcg in 100 mls @ 6.85 mls/hr 10/14/19 03:00 10/14/19 03:10 Fentanyl Drip Premix IV 1 mcg/kg/hr TITR VERÓNICA 6.85 mls/hr Titration Protocol 1 MCG/KG/HR Esmolol HCl 2.5 gm in 250 mls @ 41.1 mls/hr 10/14/19 09:00 10/14/19 08:36 Brevibloc Drip 2.5gm/250ml IV 100 mcg/kg/min TITR VERÓNICA 82.2 mls/hr Titration Protocol 50 MCG/KG/MIN Sodium Chloride 1,000 mls @ 999 mls/hr 10/14/19 08:13 Nacl 0.9% 1000 Ml IV 10/14/19 09:13 BOLUS ONE Lorazepam 2 mg 10/12/19 09:22 10/14/19 02:25 Ativan IV 2 mg Q1HR PRN Administration CIWA-Ar 8-15 Lorazepam 2 mg 10/13/19 21:22 Ativan IV Q10MIN PRN Agitation Metoprolol Tartrate 2.5 mg 10/13/19 12:00 10/14/19 08:13 Metoprolol IV Not Given Q6HR [facility] Montelukast Sodium 10 mg 10/09/19 22:00 10/13/19 21:50 Singulair PO Not Given QHS [facility] Multi-Ingred Cream/Lotion/Oil/Oint 1 applic 10/14/19 02:19 Artificial Tears Ophth Oint OU Q4HR PRN Dry Eye(s) Multivitamins 1 each 10/13/19 10:00 10/13/19 10:00 Theragran Tab PO Not Given QDAY [facility] Ondansetron HCl 4 mg 10/05/19 21:22 10/11/19 18:20 Zofran IV 4 mg Q3H PRN Administration Nausea And Vomiting Oxycodone/Acetaminophen 2 tab 10/06/19 12:26 10/12/19 18:45 Percocet 5/325 PO 2 tab Q6H PRN Administration Pain, Moderate (4-6) Pantoprazole Sodium 40 mg 10/06/19 10:00 10/13/19 22:00 Protonix PO Not Given BID VERÓNICA Sodium Chloride 10 ml 10/05/19 22:00 10/13/19 22:05 Sodium Chloride Flush Syringe 10 Ml IV 10 ml BID VERÓNICA Administration Sodium Chloride 10 ml 10/05/19 21:22 Sodium Chloride Flush Syringe 10 Ml IV PRN PRN LINE FLUSH Thiamine HCl 100 mg 10/13/19 10:00 10/13/19 10:00 Vitamin B-1 PO Not Given QDAY [facility] Nutrition/Malnutrition Assess - Dietary Evaluation Nutrition/Malnutrition Findings: Nutrition Notes Start: 10/08/19 11:36 Freq: Status: Active Protocol: Document 10/14/19 07:50 LM (Rec: 10/14/19 08:11 LM [email or web address]) Nutrition Notes Need for Assessment generated from: MD Order Initial or Follow up Assessment Current Diagnosis Acute Kidney Injury,COPD, Hypertension Other Pertinent Diagnosis lower extremity edema, dehiscence closure of facia Current Diet NPO Labs/Tests K 5.1 BUN 38 Cr 1.8 BG 104 Pertinent Medications NaCl at 125 ml/hr Height 6 ft Weight 137 kg [place] Body Weight (kg) 80.90 BMI 40.9 Weight Status Morbidly Obese Subjective/Other Information MD consult to evaluate nutritional intake. Pt previously assessed. Pt intubated 10/13. Burn Absent Trauma Absent GI Symptoms None Current % PO Negligible Minimum of two criteria No #2 Nutrition Diagnosis Inadequate oral intake Etiology mechanical vent As Evidenced by Signs and Symptoms pt NPO #1 Nutrition Diagnosis Increased nutrient needs ( specify in comment below) Comments: Protein Etiology healing As Evidenced by Signs and Symptoms s/p dehiscence closure of facia Is patient on ventilator? Yes Is Patient Ambulatory and/or Out of Bed No REE-([facility]-confined to bed) 2689.332 Kcal/Kg value to use for calculation 15 Approximate Energy Requirements Using 2054 kcal/Kg Calculation Used for Recommendations Kcal/kg Additional Notes Protein: 202g (up to 2.5 g/kg IBW 80.9 kg) Fluid: 1 ml/kcal or per MD Nutrition Intervention Change Diet Order: Recommend TF Nutrition Support: Vital HP at 75 ml/hr Flush 50 ml q4hr Kcal 1,800 Protein (gm) 157 Fluid (mL) 1,505 Goal #1 TF start Anticipated Discharge Needs: unable to determine at this time Follow-Up By: 10/16/19 Additional Comments F/U for TF consult
[2019-10-14] MEDS: FUROSEMIDE 40 MG/4 ML INJ IV SCH (09:09)
[2019-10-14] MEDS: FOLIC ACID 1 MG TAB PO SCH (09:09)
[2019-10-14] MEDS: PANTOPRAZOLE 40 MG TAB PO SCH ×2 (09:10→23:47)
[2019-10-14] MEDS: MULTIVITAMINS ,THERAPEUTIC TAB PO SCH (09:10)
[2019-10-14] MEDS: THIAMINE 100 MG TAB PO SCH (09:10)
[2019-10-14] MEDS: CITALOPRAM 20 MG TAB PO SCH (09:10)
--- NOTE | 2019-10-14 09:44 | Progress Note ---
Assessment and Plan - Patient Problems (1) Physical deconditioning Current Visit: Yes Status: Acute (2) Wound dehiscence Current Visit: Yes Status: Acute (3) COPD (chronic obstructive pulmonary disease) Current Visit: Yes Status: Chronic Qualifiers: COPD type: unspecified COPD Qualified Code(s): J44.9 - Chronic obstructive pulmonary disease, unspecified (4) Acute exacerbation of chronic obstructive pulmonary disease (COPD) Current Visit: No Status: Acute (5) CAP (community acquired pneumonia) Current Visit: No Status: Acute (6) Postprocedural intra-abdominal sepsis Current Visit: Yes Status: Acute (7) Tachycardia determined by examination of pulse Current Visit: Yes Status: Acute (8) Tachycardia with greater than 160 beats per minute Current Visit: Yes Status: Acute (9) Sepsis Current Visit: No Status: Acute Qualifiers: Sepsis type: sepsis due to unspecified organism Qualified Code(s): A41.9 - Sepsis, unspecified organism Subjective Principal diagnosis: acute renal failure Interval history: events noted sp expl disruption of anastomosis Objective Vital Signs - 12hr 10/13/19 10/13/19 10/13/19 21:50 22:00 22:10 Temperature Pulse Rate 169 H 168 H 161 H Pulse Rate [ From Monitor] Pulse Rate [ Left Dorsalis Pedis] Pulse Rate [ Right Dorsalis Pedis] Pulse Rate [ Right Radial] Respiratory 31 H 38 H 35 H Rate Blood Pressure 101/56 101/56 92/53 O2 Sat by Pulse 99 99 100 Oximetry 10/13/19 10/13/19 10/13/19 22:20 22:30 22:40 Temperature Pulse Rate 166 H 168 H 169 H Pulse Rate [ From Monitor] Pulse Rate [ Left Dorsalis Pedis] Pulse Rate [ Right Dorsalis Pedis] Pulse Rate [ Right Radial] Respiratory 38 H 40 H 45 H Rate Blood Pressure 76/38 76/38 106/22 O2 Sat by Pulse 100 100 98 Oximetry 10/13/19 10/13/19 10/13/19 22:50 23:00 23:10 Temperature Pulse Rate 168 H 174 H 170 H Pulse Rate [ From Monitor] Pulse Rate [ Left Dorsalis Pedis] Pulse Rate [ Right Dorsalis Pedis] Pulse Rate [ Right Radial] Respiratory 39 H 40 H 41 H Rate Blood Pressure 79/58 79/58 119/39 O2 Sat by Pulse 98 98 97 Oximetry 10/13/19 10/13/19 10/13/19 23:21 23:31 23:41 Temperature Pulse Rate 169 H 165 H 164 H Pulse Rate [ From Monitor] Pulse Rate [ Left Dorsalis Pedis] Pulse Rate [ Right Dorsalis Pedis] Pulse Rate [ Right Radial] Respiratory 44 H 43 H 43 H Rate Blood Pressure 119/39 116/61 116/61 O2 Sat by Pulse 98 97 96 Oximetry 10/13/19 10/14/19 10/14/19 23:51 00:00 00:01 Temperature Pulse Rate 142 H 148 H Pulse Rate [ 156 H From Monitor] Pulse Rate [ 156 H Left Dorsalis Pedis] Pulse Rate [ 156 H Right Dorsalis Pedis] Pulse Rate [ Right Radial] Respiratory 41 H 32 H 41 H Rate Blood Pressure 89/51 101/50 O2 Sat by Pulse 96 97 97 Oximetry 10/14/19 10/14/19 10/14/19 00:05 00:11 00:21 Temperature Pulse Rate 156 H 148 H 165 H Pulse Rate [ From Monitor] Pulse Rate [ Left Dorsalis Pedis] Pulse Rate [ Right Dorsalis Pedis] Pulse Rate [ Right Radial] Respiratory 42 H 40 H Rate Blood Pressure 112/54 101/50 97/58 O2 Sat by Pulse 97 97 Oximetry 10/14/19 10/14/19 10/14/19 00:31 00:41 00:51 Temperature 98.9 F Pulse Rate 165 H 161 H 164 H Pulse Rate [ From Monitor] Pulse Rate [ Left Dorsalis Pedis] Pulse Rate [ Right Dorsalis Pedis] Pulse Rate [ Right Radial] Respiratory 44 H 36 H 43 H Rate Blood Pressure 104/60 104/60 94/52 O2 Sat by Pulse 97 97 96 Oximetry 10/14/19 10/14/19 10/14/19 01:00 01:11 01:21 Temperature Pulse Rate 164 H 168 H 159 H Pulse Rate [ From Monitor] Pulse Rate [ Left Dorsalis Pedis] Pulse Rate [ Right Dorsalis Pedis] Pulse Rate [ Right Radial] Respiratory 41 H 43 H 42 H Rate Blood Pressure 109/55 109/55 134/66 O2 Sat by Pulse 97 97 97 Oximetry 10/14/19 10/14/19 10/14/19 01:31 01:41 01:51 Temperature Pulse Rate 164 H 171 H 167 H Pulse Rate [ From Monitor] Pulse Rate [ Left Dorsalis Pedis] Pulse Rate [ Right Dorsalis Pedis] Pulse Rate [ Right Radial] Respiratory 47 H 39 H 41 H Rate Blood Pressure 134/66 113/68 109/65 O2 Sat by Pulse 96 97 97 Oximetry 10/14/19 10/14/19 10/14/19 02:01 02:11 02:21 Temperature Pulse Rate 167 H 166 H 169 H Pulse Rate [ From Monitor] Pulse Rate [ Left Dorsalis Pedis] Pulse Rate [ Right Dorsalis Pedis] Pulse Rate [ Right Radial] Respiratory 41 H 40 H 40 H Rate Blood Pressure 134/66 134/66 96/51 O2 Sat by Pulse 96 96 96 Oximetry 10/14/19 10/14/19 10/14/19 02:31 02:41 02:51 Temperature Pulse Rate 165 H 159 H 165 H Pulse Rate [ From Monitor] Pulse Rate [ Left Dorsalis Pedis] Pulse Rate [ Right Dorsalis Pedis] Pulse Rate [ Right Radial] Respiratory 38 H 38 H 38 H Rate Blood Pressure 106/58 106/58 102/62 O2 Sat by Pulse 97 97 97 Oximetry 10/14/19 10/14/19 10/14/19 03:01 03:11 03:21 Temperature Pulse Rate 165 H 165 H 173 H Pulse Rate [ From Monitor] Pulse Rate [ Left Dorsalis Pedis] Pulse Rate [ Right Dorsalis Pedis] Pulse Rate [ Right Radial] Respiratory 38 H 41 H 38 H Rate Blood Pressure 102/62 138/119 204/126 O2 Sat by Pulse 96 97 97 Oximetry 10/14/19 10/14/19 10/14/19 03:31 03:41 03:51 Temperature Pulse Rate 176 H 182 H 174 H Pulse Rate [ From Monitor] Pulse Rate [ Left Dorsalis Pedis] Pulse Rate [ Right Dorsalis Pedis] Pulse Rate [ Right Radial] Respiratory 36 H 35 H 36 H Rate Blood Pressure 204/126 204/126 85/43 O2 Sat by Pulse 96 96 96 Oximetry 10/14/19 10/14/19 10/14/19 03:58 04:00 04:01 Temperature 100.6 F H Pulse Rate 169 H 163 H Pulse Rate [ 142 H From Monitor] Pulse Rate [ Left Dorsalis Pedis] Pulse Rate [ Right Dorsalis Pedis] Pulse Rate [ 142 H Right Radial] Respiratory 22 33 H Rate Blood Pressure 167/96 175/134 O2 Sat by Pulse 95 96 Oximetry 10/14/19 10/14/19 10/14/19 04:09 04:11 04:21 Temperature Pulse Rate 175 H 164 H 160 H Pulse Rate [ From Monitor] Pulse Rate [ Left Dorsalis Pedis] Pulse Rate [ Right Dorsalis Pedis] Pulse Rate [ Right Radial] Respiratory 32 H 35 H Rate Blood Pressure 175/134 175/134 175/134 O2 Sat by Pulse 96 96 Oximetry 10/14/19 10/14/19 10/14/19 04:31 04:41 04:51 Temperature Pulse Rate 155 H 156 H 154 H Pulse Rate [ From Monitor] Pulse Rate [ Left Dorsalis Pedis] Pulse Rate [ Right Dorsalis Pedis] Pulse Rate [ Right Radial] Respiratory 34 H 33 H 35 H Rate Blood Pressure 96/53 96/53 89/46 O2 Sat by Pulse 97 98 97 Oximetry 10/14/19 10/14/19 10/14/19 05:01 05:11 05:21 Temperature Pulse Rate 162 H 159 H Pulse Rate [ From Monitor] Pulse Rate [ Left Dorsalis Pedis] Pulse Rate [ Right Dorsalis Pedis] Pulse Rate [ Right Radial] Respiratory 36 H Rate Blood Pressure 89/46 89/46 110/60 O2 Sat by Pulse 96 97 97 Oximetry 10/14/19 10/14/19 10/14/19 05:22 05:31 05:41 Temperature Pulse Rate 161 H 152 H 164 H Pulse Rate [ From Monitor] Pulse Rate [ Left Dorsalis Pedis] Pulse Rate [ Right Dorsalis Pedis] Pulse Rate [ Right Radial] Respiratory 36 H 31 H Rate Blood Pressure 72/46 110/60 87/41 O2 Sat by Pulse 95 97 97 Oximetry 10/14/19 10/14/19 10/14/19 05:51 06:01 06:11 Temperature Pulse Rate 163 H 160 H 164 H Pulse Rate [ From Monitor] Pulse Rate [ Left Dorsalis Pedis] Pulse Rate [ Right Dorsalis Pedis] Pulse Rate [ Right Radial] Respiratory 34 H 33 H 31 H Rate Blood Pressure 82/49 72/46 87/41 O2 Sat by Pulse 95 95 96 Oximetry 10/14/19 10/14/19 10/14/19 06:21 06:30 06:41 Temperature Pulse Rate 158 H 153 H 171 H Pulse Rate [ From Monitor] Pulse Rate [ Left Dorsalis Pedis] Pulse Rate [ Right Dorsalis Pedis] Pulse Rate [ Right Radial] Respiratory 31 H 31 H 31 H Rate Blood Pressure 72/45 84/49 84/49 O2 Sat by Pulse 96 96 97 Oximetry 10/14/19 10/14/19 10/14/19 06:51 07:01 07:11 Temperature Pulse Rate 170 H 153 H 159 H Pulse Rate [ From Monitor] Pulse Rate [ Left Dorsalis Pedis] Pulse Rate [ Right Dorsalis Pedis] Pulse Rate [ Right Radial] Respiratory 33 H 33 H 34 H Rate Blood Pressure 75/42 75/42 86/34 O2 Sat by Pulse 97 97 99 Oximetry 10/14/19 10/14/19 10/14/19 07:13 07:21 07:31 Temperature Pulse Rate 166 H 164 H 162 H Pulse Rate [ From Monitor] Pulse Rate [ Left Dorsalis Pedis] Pulse Rate [ Right Dorsalis Pedis] Pulse Rate [ Right Radial] Respiratory 33 H 33 H Rate Blood Pressure 86/34 108/46 89/56 O2 Sat by Pulse 96 97 96 Oximetry 10/14/19 10/14/19 10/14/19 07:41 07:45 08:00 Temperature Pulse Rate 158 H 161 H 150 H Pulse Rate [ From Monitor] Pulse Rate [ Left Dorsalis Pedis] Pulse Rate [ Right Dorsalis Pedis] Pulse Rate [ Right Radial] Respiratory 34 H 35 H 32 H Rate Blood Pressure 89/56 98/60 88/61 O2 Sat by Pulse 97 97 97 Oximetry 10/14/19 10/14/19 10/14/19 08:11 08:13 08:15 Temperature Pulse Rate 158 H 147 H 147 H Pulse Rate [ From Monitor] Pulse Rate [ Left Dorsalis Pedis] Pulse Rate [ Right Dorsalis Pedis] Pulse Rate [ Right Radial] Respiratory 33 H Rate Blood Pressure 100/60 101/66 101/56 O2 Sat by Pulse 98 Oximetry 10/14/19 10/14/19 10/14/19 08:30 08:45 08:53 Temperature Pulse Rate 149 H 139 H Pulse Rate [ 158 H From Monitor] Pulse Rate [ Left Dorsalis Pedis] Pulse Rate [ Right Dorsalis Pedis] Pulse Rate [ Right Radial] Respiratory 33 H 31 H 32 H Rate Blood Pressure 106/62 96/62 O2 Sat by Pulse 97 97 96 Oximetry 10/14/19 10/14/19 10/14/19 09:00 09:15 09:30 Temperature Pulse Rate 135 H 131 H 128 H Pulse Rate [ From Monitor] Pulse Rate [ Left Dorsalis Pedis] Pulse Rate [ Right Dorsalis Pedis] Pulse Rate [ Right Radial] Respiratory 29 H 25 H 24 Rate Blood Pressure 95/63 88/56 82/52 O2 Sat by Pulse 96 96 96 Oximetry Constitutional: alert Eyes: non-icteric ENT: oropharynx moist Neck: supple Effort: normal Ascultation: Bilateral: diminished breath sounds Cardiovascular: regular rate and rhythm Gastrointestinal: tender Integumentary: normal Extremities: no cyanosis Neurologic: normal mental status, non-focal exam Psychiatric: mood appropriate, affect normal CBC and BMP: 10/14/19 04:47 10/14/19 04:47 ABG, PT/INR, D-dimer: ABG POC ABG pH 7.392 (7.35-7.45) 10/12/19 23:43 ABG pH 7.353 pH Units (7.350-7.450) 10/14/19 05:40 POC ABG pCO2 43.4 (35-45) 10/12/19 23:43 ABG pCO2 35.1 mm Hg 10/14/19 05:40 POC ABG pO2 84 (80-105) 10/12/19 23:43 ABG pO2 76.3 mm Hg (80.0-90.0) L 10/14/19 05:40 POC ABG HCO3 26.4 (22-26 mml/L) 10/12/19 23:43 POC ABG Total CO2 28 (23-27mmol/L) 10/12/19 23:43 POC ABG O2 Sat 96 10/12/19 23:43 ABG O2 Saturation 95.3 % (95.0-99.0) 10/14/19 05:40 Abnormal lab findings: Abnormal Labs 10/06/19 10/06/19 10/07/19 05:36 05:36 05:54 WBC 21.8 H 21.5 H RBC 3.55 L Hgb 10.9 L Hct 32.7 L RDW Plt Count Seg Neuts % (Manual) 91.0 H Lymphocytes % (Manual) 2.0 L Seg Neutrophils # Man 19.8 H Lymphocytes # (Manual) 0.4 L Monocytes # (Manual) 1.1 H ABG pH POC ABG pO2 ABG pO2 ABG HCO3 ABG Base Excess ABG Hemoglobin Oxyhemoglobin Sodium 135 L Potassium Chloride 95.9 L Carbon Dioxide BUN Creatinine 0.7 L Glucose POC Glucose Calcium Phosphorus Magnesium Direct Bilirubin Total Protein 5.7 L Albumin 2.5 L Urine Creatinine Urine Total Protein 10/07/19 10/09/19 10/09/19 05:54 10:52 10:52 WBC 16.6 H RBC Hgb Hct RDW Plt Count 498 H Seg Neuts % (Manual) 93.0 H Lymphocytes % (Manual) 5.0 L Seg Neutrophils # Man 15.4 H Lymphocytes # (Manual) 0.8 L Monocytes # (Manual) ABG pH POC ABG pO2 ABG pO2 ABG HCO3 ABG Base Excess ABG Hemoglobin Oxyhemoglobin Sodium Potassium Chloride 97.9 L Carbon Dioxide 20 L D BUN 23 H Creatinine 1.7 H D Glucose 109 H POC Glucose Calcium 8.1 L Phosphorus Magnesium Direct Bilirubin Total Protein Albumin Urine Creatinine Urine Total Protein 10/09/19 10/10/19 10/10/19 17:23 05:30 05:30 WBC 14.6 H RBC Hgb 11.1 L Hct 33.5 L RDW Plt Count 527 H Seg Neuts % (Manual) Lymphocytes % (Manual) Seg Neutrophils # Man Lymphocytes # (Manual) Monocytes # (Manual) ABG pH POC ABG pO2 ABG pO2 ABG HCO3 ABG Base Excess ABG Hemoglobin Oxyhemoglobin Sodium 130 L D Potassium 5.1 H Chloride 90.0 L 91.0 L Carbon Dioxide 20 L 20 L BUN 27 H 35 H Creatinine 1.9 H 2.0 H Glucose 104 H POC Glucose Calcium Phosphorus Magnesium Direct Bilirubin Total Protein Albumin Urine Creatinine Urine Total Protein 10/10/19 10/10/19 10/11/19 08:33 08:44 05:41 WBC 13.2 H RBC Hgb 11.3 L Hct 33.8 L RDW 15.3 H Plt Count 543 H Seg Neuts % (Manual) Lymphocytes % (Manual) Seg Neutrophils # Man Lymphocytes # (Manual) Monocytes # (Manual) ABG pH POC ABG pO2 ABG pO2 ABG HCO3 ABG Base Excess ABG Hemoglobin Oxyhemoglobin Sodium Potassium Chloride Carbon Dioxide BUN Creatinine Glucose 113 H POC Glucose 117 H Calcium Phosphorus Magnesium Direct Bilirubin Total Protein Albumin Urine Creatinine Urine Total Protein 10/11/19 10/11/19 10/11/19 05:41 06:23 06:23 WBC RBC Hgb Hct RDW Plt Count Seg Neuts % (Manual) Lymphocytes % (Manual) Seg Neutrophils # Man Lymphocytes # (Manual) Monocytes # (Manual) ABG pH POC ABG pO2 ABG pO2 ABG HCO3 ABG Base Excess ABG Hemoglobin Oxyhemoglobin Sodium 134 L Potassium Chloride 96.3 L Carbon Dioxide BUN 37 H Creatinine Glucose 58 L POC Glucose Calcium Phosphorus 4.90 H Magnesium Direct Bilirubin Total Protein Albumin Urine Creatinine 118.2 H 116.8 H Urine Total Protein 105 H 104 H 10/12/19 10/12/19 10/12/19 06:09 06:09 08:20 WBC 13.8 H RBC 3.39 L Hgb 10.2 L Hct 30.9 L RDW 15.5 H Plt Count 459 H Seg Neuts % (Manual) Lymphocytes % (Manual) Seg Neutrophils # Man Lymphocytes # (Manual) Monocytes # (Manual) ABG pH POC ABG pO2 63 L ABG pO2 ABG HCO3 ABG Base Excess ABG Hemoglobin Oxyhemoglobin Sodium 131 L Potassium Chloride 96.2 L Carbon Dioxide 21 L BUN 43 H Creatinine Glucose 72 L POC Glucose Calcium Phosphorus Magnesium Direct Bilirubin Total Protein Albumin Urine Creatinine Urine Total Protein 10/12/19 10/12/19 10/13/19 09:30 09:30 04:20 WBC 15.7 H RBC 3.64 L Hgb 10.9 L Hct 33.1 L RDW 15.8 H Plt Count 488 H Seg Neuts % (Manual) Lymphocytes % (Manual) Seg Neutrophils # Man Lymphocytes # (Manual) Monocytes # (Manual) ABG pH POC ABG pO2 ABG pO2 ABG HCO3 ABG Base Excess ABG Hemoglobin Oxyhemoglobin Sodium Potassium Chloride Carbon Dioxide BUN Creatinine Glucose POC Glucose Calcium Phosphorus Magnesium 2.50 H Direct Bilirubin 0.3 H Total Protein 5.1 L Albumin 2.2 L Urine Creatinine Urine Total Protein 10/13/19 10/13/19 10/13/19 04:20 18:24 20:05 WBC RBC Hgb Hct RDW Plt Count Seg Neuts % (Manual) Lymphocytes % (Manual) Seg Neutrophils # Man Lymphocytes # (Manual) Monocytes # (Manual) ABG pH 7.180 L* 7.278 L POC ABG pO2 ABG pO2 130.7 H ABG HCO3 ABG Base Excess -6.5 L -6.5 L ABG Hemoglobin 12.2 L 12.3 L Oxyhemoglobin 92.9 L Sodium Potassium Chloride Carbon Dioxide BUN 28 H Creatinine Glucose POC Glucose Calcium Phosphorus Magnesium Direct Bilirubin Total Protein Albumin Urine Creatinine Urine Total Protein 10/14/19 10/14/19 10/14/19 04:47 04:47 05:40 WBC 24.2 H RBC Hgb 10.9 L Hct 34.2 L RDW 17.0 H Plt Count 442 H Seg Neuts % (Manual) Lymphocytes % (Manual) Seg Neutrophils # Man Lymphocytes # (Manual) Monocytes # (Manual) ABG pH POC ABG pO2 ABG pO2 76.3 L ABG HCO3 19.1 L ABG Base Excess -5.8 L ABG Hemoglobin 10.9 L Oxyhemoglobin 93.4 L Sodium Potassium 5.1 H D Chloride 109.2 H Carbon Dioxide 17 L BUN 38 H Creatinine 1.8 H D Glucose 104 H POC Glucose Calcium 7.4 L Phosphorus Magnesium Direct Bilirubin Total Protein Albumin Urine Creatinine Urine Total Protein Chest x-ray: report reviewed, image reviewed
[2019-10-14] MEDS ORDERED: SODIUM BICARB 8.4% 50 MEQ/50 ML SYRINGE IV ONE (10:37)
--- NOTE | 2019-10-14 10:49 | Progress Note ---
Assessment and Plan Cultures Wound culture 10/10/19 pending Wound culture 10/13/19 pending Assessment: 54 yo M PMhx CAD, COPD, recent complicated course of bowel perforation after a colonoscopy admitted after surgical site herniation. Now with possibly infected fluid culture 1. Acute sepsis - present with leukocytosis and tachycardia. Most likely secondary to fluid collection in the abdomen 2. Post-surgical fluid collection - cultures are pending. I would prefer to change him to Zosyn at the present time, however his allergy history precludes that for the most part. Would continue cefepime and Flagyl as he is afebrile and stable at the present time. Can tailor antibiotics pending culture results, or continue present regimen if cultures are negative. 3. COPD 4. Penicillin allergy - likely not a true allergy, or at least he may have grown out of it. No need to test at present time, but culture results may require that in the near future. Recs: - continue cefepime and metronidazole - Continue fluconazole 400mg q24h (may need increased dose due to size) due to intra-abdominal pathology, ongoing leukocytosis - follow up repeat surgical cultures - Increased leukocytosis likely secondary to having surgery yesterday, will continue to follow it. Dr. Pineda will be taking over tomorrow. Thank you for the consult, we will continue to follow. [facility] M: [phone] O: [phone] F: [phone] Subjective Date of service: 10/14/19 Principal diagnosis: acute renal failure Interval history: Now febrile x1, increased leukocytosis today after surgery yesterday. Objective - Exam Narrative Exam: General Normal appearance, well developed, no acute distress Eyes - PERRLA, EOM intact ENT - Moist mucous membranes, no lymphadenopathy Neck - No noticeable or palpable swelling, redness or rash around throat or on face Lymph Nodes - No lymphadenopathy Cardiovascular - RRR no m/r/g, no JVD, no carotid bruits Lungs - Clear to auscultation, no use of accessory muscles, no crackles or wheezes. Skin - No rashes, skin warm and dry, no erythematous areas Abdomen - Normal bowel sounds, abdomen soft and nontender. 2x dra[address] in place./ Extremities - No edema, cyanosis or clubbing Musculoskeletal - 5/5 strength, normal range of motion, no swollen or erythematous joints. Neurological Alert and oriented x 3, CN 2-12 grossly intact. - Constitutional Vitals: Vital Signs Temp Pulse Resp BP Pulse Ox 100.6 F H 129 H 25 H 84/45 97 10/14/19 04:00 10/14/19 10:30 10/14/19 10:30 10/14/19 10:30 10/14/19 10:30 Temperature -Last 24 Hours Temperature 100.6 F Temperature 98.9 F Temperature 99.0 F Temperature 98.4 F Temperature 98.6 F Temperature 98.0 F - Labs CBC & Chem 7: 10/14/19 04:47 10/14/19 04:47 Labs: Abnormal lab results 10/13/19 10/13/19 10/14/19 Range/Units 18:24 20:05 04:47 WBC 24.2 H (4.5-11.0) K/mm3 Hgb 10.9 L (11.8-15.2) gm/dl Hct 34.2 L (35.5-45.6) % RDW 17.0 H (13.2-15.2) % Plt Count 442 H (140-440) K/mm3 ABG pH 7.180 L* 7.278 L (7.350-7.450) pH Units ABG pO2 130.7 H (80.0-90.0) mm Hg ABG HCO3 (20.0-26.0) mmol/L ABG Base Excess -6.5 L -6.5 L (-2.0-3.0) mmol/L ABG Hemoglobin 12.2 L 12.3 L (14.0-18.0) gm/dl Oxyhemoglobin 92.9 L (95.0-99.0) % Potassium (3.6-5.0) mmol/L Chloride (98-107) mmol/L Carbon Dioxide (22-30) mmol/L BUN (9-20) mg/dL Creatinine (0.8-1.5) mg/dL Glucose (75-100) mg/dL Calcium (8.4-10.2) mg/dL 10/14/19 10/14/19 Range/Units 04:47 05:40 WBC (4.5-11.0) K/mm3 Hgb (11.8-15.2) gm/dl Hct (35.5-45.6) % RDW (13.2-15.2) % Plt Count (140-440) K/mm3 ABG pH (7.350-7.450) pH Units ABG pO2 76.3 L (80.0-90.0) mm Hg ABG HCO3 19.1 L (20.0-26.0) mmol/L ABG Base Excess -5.8 L (-2.0-3.0) mmol/L ABG Hemoglobin 10.9 L (14.0-18.0) gm/dl Oxyhemoglobin 93.4 L (95.0-99.0) % Potassium 5.1 H D (3.6-5.0) mmol/L Chloride 109.2 H (98-107) mmol/L Carbon Dioxide 17 L (22-30) mmol/L BUN 38 H (9-20) mg/dL Creatinine 1.8 H D (0.8-1.5) mg/dL Glucose 104 H (75-100) mg/dL Calcium 7.4 L (8.4-10.2) mg/dL
[2019-10-14] MEDS: FLUCONAZOLE 400 MG 200 ML IV SCH (11:11)
[2019-10-14] MEDS: SODIUM CHLORIDE 0.9% 1000 ML 1,000 ML IV SCH ×3 (11:12→21:33)
--- NOTE | 2019-10-14 11:13 | Progress Note ---
Assessment and Plan - Patient Problems (1) Dehiscence of closure of fascia, superficial or muscular Current Visit: No Status: Acute Qualifiers: Encounter type: initial encounter Qualified Code(s): T81.32XA - Disruption of internal operation (surgical) wound, not elsewhere classified, initial encounter Plan to address problem: Pt stable. s/p ex lap with closure of abdominal wall and wound vac placement (10/05) - POD#9; s/p Re-exploration, washout, transection of colon, Abthera placement - 10/13 - POD#1. With the amount of contamination he had, it is expected he would have a large fluid loss from the abdomen. The fluid is of expected appearance. One of the main objectives at this point will be to keep up with his fluid losses. Patient appears to be behind in fluids right now. He would benefit from aggressive resuscitation. Rec: 1) Neuro - sedated. Family states that he has not had a drink in 3 weeks. Perhaps withdrawal may not have been involved. 2) CV - Pt appears to be severely intravascularly depleted. That would explain all of his vital signs and low urine output. Have ordered fluid boluses and increased the rate of IV fluids to 250 mL/h. He is also been ordered to have serial replacements of fluid losses from the Abthera. This should continue until we see some normalization of his vital signs and labs. 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 We will plan for return trip to [place] on Tuesday for another washout and resection of the anastomotic site. If patient is doing very well, may consider colostomy creation at that time as well. Otherwise, it will most likely be on the follow-up trip. Patient had a recent episode of an upper GI bleed secondary to an NG tube. We will try to remove OG tube as soon as possible. Should keep for now as he is in intestinal discontinuity. 5) - BUN/Cr increased this AM. Most likely related to intravascular depletion. 6) ID - Abx per ID 7) Nutrition - recommend resuming TPN tomorrow once the resuscitation has slowed down. 8) DVT prophylaxis - SCDs. Start SQ heparin once OGT removed (recent GI bleed due to NGT) 9) Family - had long discussion with and sister yesterday. Spoke with again this AM. Consent obtained for return trip to [place] on Tuesday. Please call with questions. Subjective Date of service: 10/14/19 Patient Reports: Positive: other (hypotensive and tachycardic O/N with low UOP. ) Objective Vital Signs - 12hr 10/13/19 10/13/19 10/13/19 23:21 23:31 23:41 Temperature Pulse Rate 169 H 165 H 164 H Pulse Rate [ From Monitor] Pulse Rate [ Left Dorsalis Pedis] Pulse Rate [ Right Dorsalis Pedis] Pulse Rate [ Right Radial] Respiratory 44 H 43 H 43 H Rate Blood Pressure 119/39 116/61 116/61 O2 Sat by Pulse 98 97 96 Oximetry 10/13/19 10/14/19 10/14/19 23:51 00:00 00:01 Temperature Pulse Rate 142 H 148 H Pulse Rate [ 156 H From Monitor] Pulse Rate [ 156 H Left Dorsalis Pedis] Pulse Rate [ 156 H Right Dorsalis Pedis] Pulse Rate [ Right Radial] Respiratory 41 H 32 H 41 H Rate Blood Pressure 89/51 101/50 O2 Sat by Pulse 96 97 97 Oximetry 10/14/19 10/14/19 10/14/19 00:05 00:11 00:21 Temperature Pulse Rate 156 H 148 H 165 H Pulse Rate [ From Monitor] Pulse Rate [ Left Dorsalis Pedis] Pulse Rate [ Right Dorsalis Pedis] Pulse Rate [ Right Radial] Respiratory 42 H 40 H Rate Blood Pressure 112/54 101/50 97/58 O2 Sat by Pulse 97 97 Oximetry 10/14/19 10/14/19 10/14/19 00:31 00:41 00:51 Temperature 98.9 F Pulse Rate 165 H 161 H 164 H Pulse Rate [ From Monitor] Pulse Rate [ Left Dorsalis Pedis] Pulse Rate [ Right Dorsalis Pedis] Pulse Rate [ Right Radial] Respiratory 44 H 36 H 43 H Rate Blood Pressure 104/60 104/60 94/52 O2 Sat by Pulse 97 97 96 Oximetry 10/14/19 10/14/19 10/14/19 01:00 01:11 01:21 Temperature Pulse Rate 164 H 168 H 159 H Pulse Rate [ From Monitor] Pulse Rate [ Left Dorsalis Pedis] Pulse Rate [ Right Dorsalis Pedis] Pulse Rate [ Right Radial] Respiratory 41 H 43 H 42 H Rate Blood Pressure 109/55 109/55 134/66 O2 Sat by Pulse 97 97 97 Oximetry 10/14/19 10/14/19 10/14/19 01:31 01:41 01:51 Temperature Pulse Rate 164 H 171 H 167 H Pulse Rate [ From Monitor] Pulse Rate [ Left Dorsalis Pedis] Pulse Rate [ Right Dorsalis Pedis] Pulse Rate [ Right Radial] Respiratory 47 H 39 H 41 H Rate Blood Pressure 134/66 113/68 109/65 O2 Sat by Pulse 96 97 97 Oximetry 10/14/19 10/14/19 10/14/19 02:01 02:11 02:21 Temperature Pulse Rate 167 H 166 H 169 H Pulse Rate [ From Monitor] Pulse Rate [ Left Dorsalis Pedis] Pulse Rate [ Right Dorsalis Pedis] Pulse Rate [ Right Radial] Respiratory 41 H 40 H 40 H Rate Blood Pressure 134/66 134/66 96/51 O2 Sat by Pulse 96 96 96 Oximetry 10/14/19 10/14/19 10/14/19 02:31 02:41 02:51 Temperature Pulse Rate 165 H 159 H 165 H Pulse Rate [ From Monitor] Pulse Rate [ Left Dorsalis Pedis] Pulse Rate [ Right Dorsalis Pedis] Pulse Rate [ Right Radial] Respiratory 38 H 38 H 38 H Rate Blood Pressure 106/58 106/58 102/62 O2 Sat by Pulse 97 97 97 Oximetry 10/14/19 10/14/19 10/14/19 03:01 03:11 03:21 Temperature Pulse Rate 165 H 165 H 173 H Pulse Rate [ From Monitor] Pulse Rate [ Left Dorsalis Pedis] Pulse Rate [ Right Dorsalis Pedis] Pulse Rate [ Right Radial] Respiratory 38 H 41 H 38 H Rate Blood Pressure 102/62 138/119 204/126 O2 Sat by Pulse 96 97 97 Oximetry 10/14/19 10/14/19 10/14/19 03:31 03:41 03:51 Temperature Pulse Rate 176 H 182 H 174 H Pulse Rate [ From Monitor] Pulse Rate [ Left Dorsalis Pedis] Pulse Rate [ Right Dorsalis Pedis] Pulse Rate [ Right Radial] Respiratory 36 H 35 H 36 H Rate Blood Pressure 204/126 204/126 85/43 O2 Sat by Pulse 96 96 96 Oximetry 10/14/19 10/14/19 10/14/19 03:58 04:00 04:01 Temperature 100.6 F H Pulse Rate 169 H 163 H Pulse Rate [ 142 H From Monitor] Pulse Rate [ Left Dorsalis Pedis] Pulse Rate [ Right Dorsalis Pedis] Pulse Rate [ 142 H Right Radial] Respiratory 22 33 H Rate Blood Pressure 167/96 175/134 O2 Sat by Pulse 95 96 Oximetry 10/14/19 10/14/19 10/14/19 04:09 04:11 04:21 Temperature Pulse Rate 175 H 164 H 160 H Pulse Rate [ From Monitor] Pulse Rate [ Left Dorsalis Pedis] Pulse Rate [ Right Dorsalis Pedis] Pulse Rate [ Right Radial] Respiratory 32 H 35 H Rate Blood Pressure 175/134 175/134 175/134 O2 Sat by Pulse 96 96 Oximetry 10/14/19 10/14/19 10/14/19 04:31 04:41 04:51 Temperature Pulse Rate 155 H 156 H 154 H Pulse Rate [ From Monitor] Pulse Rate [ Left Dorsalis Pedis] Pulse Rate [ Right Dorsalis Pedis] Pulse Rate [ Right Radial] Respiratory 34 H 33 H 35 H Rate Blood Pressure 96/53 96/53 89/46 O2 Sat by Pulse 97 98 97 Oximetry 10/14/19 10/14/19 10/14/19 05:01 05:11 05:21 Temperature Pulse Rate 162 H 159 H Pulse Rate [ From Monitor] Pulse Rate [ Left Dorsalis Pedis] Pulse Rate [ Right Dorsalis Pedis] Pulse Rate [ Right Radial] Respiratory 36 H Rate Blood Pressure 89/46 89/46 110/60 O2 Sat by Pulse 96 97 97 Oximetry 10/14/19 10/14/19 10/14/19 05:22 05:31 05:41 Temperature Pulse Rate 161 H 152 H 164 H Pulse Rate [ From Monitor] Pulse Rate [ Left Dorsalis Pedis] Pulse Rate [ Right Dorsalis Pedis] Pulse Rate [ Right Radial] Respiratory 36 H 31 H Rate Blood Pressure 72/46 110/60 87/41 O2 Sat by Pulse 95 97 97 Oximetry 10/14/19 10/14/19 10/14/19 05:51 06:01 06:11 Temperature Pulse Rate 163 H 160 H 164 H Pulse Rate [ From Monitor] Pulse Rate [ Left Dorsalis Pedis] Pulse Rate [ Right Dorsalis Pedis] Pulse Rate [ Right Radial] Respiratory 34 H 33 H 31 H Rate Blood Pressure 82/49 72/46 87/41 O2 Sat by Pulse 95 95 96 Oximetry 10/14/19 10/14/19 10/14/19 06:21 06:30 06:41 Temperature Pulse Rate 158 H 153 H 171 H Pulse Rate [ From Monitor] Pulse Rate [ Left Dorsalis Pedis] Pulse Rate [ Right Dorsalis Pedis] Pulse Rate [ Right Radial] Respiratory 31 H 31 H 31 H Rate Blood Pressure 72/45 84/49 84/49 O2 Sat by Pulse 96 96 97 Oximetry 10/14/19 10/14/19 10/14/19 06:51 07:01 07:11 Temperature Pulse Rate 170 H 153 H 159 H Pulse Rate [ From Monitor] Pulse Rate [ Left Dorsalis Pedis] Pulse Rate [ Right Dorsalis Pedis] Pulse Rate [ Right Radial] Respiratory 33 H 33 H 34 H Rate Blood Pressure 75/42 75/42 86/34 O2 Sat by Pulse 97 97 99 Oximetry 10/14/19 10/14/19 10/14/19 07:13 07:21 07:31 Temperature Pulse Rate 166 H 164 H 162 H Pulse Rate [ From Monitor] Pulse Rate [ Left Dorsalis Pedis] Pulse Rate [ Right Dorsalis Pedis] Pulse Rate [ Right Radial] Respiratory 33 H 33 H Rate Blood Pressure 86/34 108/46 89/56 O2 Sat by Pulse 96 97 96 Oximetry 10/14/19 10/14/19 10/14/19 07:41 07:45 08:00 Temperature Pulse Rate 158 H 161 H 150 H Pulse Rate [ From Monitor] Pulse Rate [ Left Dorsalis Pedis] Pulse Rate [ Right Dorsalis Pedis] Pulse Rate [ Right Radial] Respiratory 34 H 35 H 32 H Rate Blood Pressure 89/56 98/60 88/61 O2 Sat by Pulse 97 97 97 Oximetry 10/14/19 10/14/19 10/14/19 08:11 08:13 08:15 Temperature Pulse Rate 158 H 147 H 147 H Pulse Rate [ From Monitor] Pulse Rate [ Left Dorsalis Pedis] Pulse Rate [ Right Dorsalis Pedis] Pulse Rate [ Right Radial] Respiratory 33 H Rate Blood Pressure 100/60 101/66 101/56 O2 Sat by Pulse 98 Oximetry 10/14/19 10/14/19 10/14/19 08:30 08:45 08:53 Temperature Pulse Rate 149 H 139 H Pulse Rate [ 158 H From Monitor] Pulse Rate [ Left Dorsalis Pedis] Pulse Rate [ Right Dorsalis Pedis] Pulse Rate [ Right Radial] Respiratory 33 H 31 H 32 H Rate Blood Pressure 106/62 96/62 O2 Sat by Pulse 97 97 96 Oximetry 10/14/19 10/14/19 10/14/19 09:00 09:15 09:30 Temperature Pulse Rate 135 H 131 H 128 H Pulse Rate [ From Monitor] Pulse Rate [ Left Dorsalis Pedis] Pulse Rate [ Right Dorsalis Pedis] Pulse Rate [ Right Radial] Respiratory 29 H 25 H 24 Rate Blood Pressure 95/63 88/56 82/52 O2 Sat by Pulse 96 96 96 Oximetry 10/14/19 10/14/19 10/14/19 09:45 10:00 10:15 Temperature Pulse Rate 128 H 128 H 127 H Pulse Rate [ From Monitor] Pulse Rate [ Left Dorsalis Pedis] Pulse Rate [ Right Dorsalis Pedis] Pulse Rate [ Right Radial] Respiratory 24 23 24 Rate Blood Pressure 82/52 94/53 79/47 O2 Sat by Pulse 97 97 97 Oximetry 10/14/19 10/14/19 10/14/19 10:30 10:45 10:58 Temperature Pulse Rate 129 H 131 H 134 H Pulse Rate [ From Monitor] Pulse Rate [ Left Dorsalis Pedis] Pulse Rate [ Right Dorsalis Pedis] Pulse Rate [ Right Radial] Respiratory 25 H 24 Rate Blood Pressure 84/45 79/46 79/46 O2 Sat by Pulse 97 97 98 Oximetry 10/14/19 11:00 Temperature Pulse Rate 135 H Pulse Rate [ From Monitor] Pulse Rate [ Left Dorsalis Pedis] Pulse Rate [ Right Dorsalis Pedis] Pulse Rate [ Right Radial] Respiratory 23 Rate Blood Pressure 85/47 O2 Sat by Pulse 97 Oximetry - General physical appearance no distress, no pain, other (Intubated and sedated) - Respiratory other (on vent) - Abdomen soft, distended, other (AbThera in place.) - Labs 10/14/19 04:47 10/14/19 04:47 Diabetes panel 10/14/19 Range/Units 04:47 Sodium 141 (137-145) mmol/L Potassium 5.1 H D (3.6-5.0) mmol/L Chloride 109.2 H (98-107) mmol/L Carbon Dioxide 17 L (22-30) mmol/L BUN 38 H (9-20) mg/dL Creatinine 1.8 H D (0.8-1.5) mg/dL Glucose 104 H (75-100) mg/dL Calcium 7.4 L (8.4-10.2) mg/dL Calcium panel 10/14/19 10/14/19 Range/Units 04:47 10:14 Calcium 7.4 L (8.4-10.2) mg/dL Phosphorus 5.60 H (2.5-4.5) mg/dL Pituitary panel 10/14/19 Range/Units 04:47 Sodium 141 (137-145) mmol/L Potassium 5.1 H D (3.6-5.0) mmol/L Chloride 109.2 H (98-107) mmol/L Carbon Dioxide 17 L (22-30) mmol/L BUN 38 H (9-20) mg/dL Creatinine 1.8 H D (0.8-1.5) mg/dL Glucose 104 H (75-100) mg/dL Calcium 7.4 L (8.4-10.2) mg/dL Adrenal panel 10/14/19 Range/Units 04:47 Sodium 141 (137-145) mmol/L Potassium 5.1 H D (3.6-5.0) mmol/L Chloride 109.2 H (98-107) mmol/L Carbon Dioxide 17 L (22-30) mmol/L BUN 38 H (9-20) mg/dL Creatinine 1.8 H D (0.8-1.5) mg/dL Glucose 104 H (75-100) mg/dL Calcium 7.4 L (8.4-10.2) mg/dL
[2019-10-14] MEDS ORDERED: ALBUMIN HUMAN 5% (25 GM/500 ML) INJ IV ONE (11:14)
[2019-10-14] MEDS: DIGOXIN 0.5 MG/2 ML INJ IV SCH ×4 (11:27→23:42)
[2019-10-14] MEDS: INSULIN LISPRO 100 UNIT/ML SUB-Q SCH ×2 (12:14→18:41)
[2019-10-14] MEDS ORDERED: SODIUM CHLORIDE 0.9% 1000 ML 500 ML IV ONE (12:15)
--- NOTE | 2019-10-14 12:23 | Progress Note ---
Assessment and Plan Acute Renal Failure likely secondary to ischemic ATN due to Sepsis, hypotension - Renal function reviewed, SCr level increased to 1.8 today, yesterday's SCr level was 0.8 - SPEP and UPEP pending - No hydronephrosis on CT - Pulmonology on board, started on 0.9% NS infusion at 75 ml/hr, recommended holding lasix for now, f/u recs - D/C Lasix for now - Monitor I/O's - [place] Catheter: Yes - Intake= 756 ml Output= 3075 ml ( Net= -2318 ml) - Renal plan d/w Dr Jenkins Dehiscence of closure of fascia, superficial or muscular Abdominal Pain -S/p multiple abdominal surgeries -S/p CT guided placement of a 8 Fr APD drain in the RUQ and RLQ by IR 10/10/19 -Gen surgeon on board, s/p surgery on 10/13/19 with re-opening of laparotomy, abdominal washout, colon stapled transection, and Abthera Placement Hx Hypertension, now hypotensive Hx of CAD/UT: Tachycardia: - Cardiology on board, start IV fluids, off esmolol drip for now given hypotension, f/u recs - Adjust regimen as needed Subjective Principal diagnosis: acute renal failure Interval history: Pt seen in ICU intubated on ventilator, off esmolol drip for now given hypotension, tachycardic with HR in 150s, s/p surgery yesterday. at bedside, updated on renal plan Objective - Vital Signs Vital signs: Vital Signs - 12hr 10/14/19 10/14/19 10/14/19 00:31 00:41 00:51 Temperature 98.9 F Pulse Rate 165 H 161 H 164 H Pulse Rate [ From Monitor] Pulse Rate [ Right Radial] Respiratory 44 H 36 H 43 H Rate Blood Pressure 104/60 104/60 94/52 O2 Sat by Pulse 97 97 96 Oximetry 10/14/19 10/14/19 10/14/19 01:00 01:11 01:21 Temperature Pulse Rate 164 H 168 H 159 H Pulse Rate [ From Monitor] Pulse Rate [ Right Radial] Respiratory 41 H 43 H 42 H Rate Blood Pressure 109/55 109/55 134/66 O2 Sat by Pulse 97 97 97 Oximetry 10/14/19 10/14/19 10/14/19 01:31 01:41 01:51 Temperature Pulse Rate 164 H 171 H 167 H Pulse Rate [ From Monitor] Pulse Rate [ Right Radial] Respiratory 47 H 39 H 41 H Rate Blood Pressure 134/66 113/68 109/65 O2 Sat by Pulse 96 97 97 Oximetry 10/14/19 10/14/19 10/14/19 02:01 02:11 02:21 Temperature Pulse Rate 167 H 166 H 169 H Pulse Rate [ From Monitor] Pulse Rate [ Right Radial] Respiratory 41 H 40 H 40 H Rate Blood Pressure 134/66 134/66 96/51 O2 Sat by Pulse 96 96 96 Oximetry 10/14/19 10/14/19 10/14/19 02:31 02:41 02:51 Temperature Pulse Rate 165 H 159 H 165 H Pulse Rate [ From Monitor] Pulse Rate [ Right Radial] Respiratory 38 H 38 H 38 H Rate Blood Pressure 106/58 106/58 102/62 O2 Sat by Pulse 97 97 97 Oximetry 10/14/19 10/14/19 10/14/19 03:01 03:11 03:21 Temperature Pulse Rate 165 H 165 H 173 H Pulse Rate [ From Monitor] Pulse Rate [ Right Radial] Respiratory 38 H 41 H 38 H Rate Blood Pressure 102/62 138/119 204/126 O2 Sat by Pulse 96 97 97 Oximetry 10/14/19 10/14/19 10/14/19 03:31 03:41 03:51 Temperature Pulse Rate 176 H 182 H 174 H Pulse Rate [ From Monitor] Pulse Rate [ Right Radial] Respiratory 36 H 35 H 36 H Rate Blood Pressure 204/126 204/126 85/43 O2 Sat by Pulse 96 96 96 Oximetry 10/14/19 10/14/19 10/14/19 03:58 04:00 04:01 Temperature 100.6 F H Pulse Rate 169 H 163 H Pulse Rate [ 142 H From Monitor] Pulse Rate [ 142 H Right Radial] Respiratory 22 33 H Rate Blood Pressure 167/96 175/134 O2 Sat by Pulse 95 96 Oximetry 10/14/19 10/14/19 10/14/19 04:09 04:11 04:21 Temperature Pulse Rate 175 H 164 H 160 H Pulse Rate [ From Monitor] Pulse Rate [ Right Radial] Respiratory 32 H 35 H Rate Blood Pressure 175/134 175/134 175/134 O2 Sat by Pulse 96 96 Oximetry 10/14/19 10/14/19 10/14/19 04:31 04:41 04:51 Temperature Pulse Rate 155 H 156 H 154 H Pulse Rate [ From Monitor] Pulse Rate [ Right Radial] Respiratory 34 H 33 H 35 H Rate Blood Pressure 96/53 96/53 89/46 O2 Sat by Pulse 97 98 97 Oximetry 10/14/19 10/14/19 10/14/19 05:01 05:11 05:21 Temperature Pulse Rate 162 H 159 H Pulse Rate [ From Monitor] Pulse Rate [ Right Radial] Respiratory 36 H Rate Blood Pressure 89/46 89/46 110/60 O2 Sat by Pulse 96 97 97 Oximetry 10/14/19 10/14/19 10/14/19 05:22 05:31 05:41 Temperature Pulse Rate 161 H 152 H 164 H Pulse Rate [ From Monitor] Pulse Rate [ Right Radial] Respiratory 36 H 31 H Rate Blood Pressure 72/46 110/60 87/41 O2 Sat by Pulse 95 97 97 Oximetry 10/14/19 10/14/19 10/14/19 05:51 06:01 06:11 Temperature Pulse Rate 163 H 160 H 164 H Pulse Rate [ From Monitor] Pulse Rate [ Right Radial] Respiratory 34 H 33 H 31 H Rate Blood Pressure 82/49 72/46 87/41 O2 Sat by Pulse 95 95 96 Oximetry 10/14/19 10/14/19 10/14/19 06:21 06:30 06:41 Temperature Pulse Rate 158 H 153 H 171 H Pulse Rate [ From Monitor] Pulse Rate [ Right Radial] Respiratory 31 H 31 H 31 H Rate Blood Pressure 72/45 84/49 84/49 O2 Sat by Pulse 96 96 97 Oximetry 10/14/19 10/14/19 10/14/19 06:51 07:01 07:11 Temperature Pulse Rate 170 H 153 H 159 H Pulse Rate [ From Monitor] Pulse Rate [ Right Radial] Respiratory 33 H 33 H 34 H Rate Blood Pressure 75/42 75/42 86/34 O2 Sat by Pulse 97 97 99 Oximetry 10/14/19 10/14/19 10/14/19 07:13 07:21 07:31 Temperature Pulse Rate 166 H 164 H 162 H Pulse Rate [ From Monitor] Pulse Rate [ Right Radial] Respiratory 33 H 33 H Rate Blood Pressure 86/34 108/46 89/56 O2 Sat by Pulse 96 97 96 Oximetry 10/14/19 10/14/19 10/14/19 07:41 07:45 08:00 Temperature Pulse Rate 158 H 161 H 150 H Pulse Rate [ From Monitor] Pulse Rate [ Right Radial] Respiratory 34 H 35 H 32 H Rate Blood Pressure 89/56 98/60 88/61 O2 Sat by Pulse 97 97 97 Oximetry 10/14/19 10/14/19 10/14/19 08:11 08:13 08:15 Temperature Pulse Rate 158 H 147 H 147 H Pulse Rate [ From Monitor] Pulse Rate [ Right Radial] Respiratory 33 H Rate Blood Pressure 100/60 101/66 101/56 O2 Sat by Pulse 98 Oximetry 10/14/19 10/14/19 10/14/19 08:30 08:45 08:53 Temperature Pulse Rate 149 H 139 H Pulse Rate [ 158 H From Monitor] Pulse Rate [ Right Radial] Respiratory 33 H 31 H 32 H Rate Blood Pressure 106/62 96/62 O2 Sat by Pulse 97 97 96 Oximetry 10/14/19 10/14/19 10/14/19 09:00 09:15 09:30 Temperature Pulse Rate 135 H 131 H 128 H Pulse Rate [ From Monitor] Pulse Rate [ Right Radial] Respiratory 29 H 25 H 24 Rate Blood Pressure 95/63 88/56 82/52 O2 Sat by Pulse 96 96 96 Oximetry 10/14/19 10/14/19 10/14/19 09:45 10:00 10:15 Temperature Pulse Rate 128 H 128 H 127 H Pulse Rate [ From Monitor] Pulse Rate [ Right Radial] Respiratory 24 23 24 Rate Blood Pressure 82/52 94/53 79/47 O2 Sat by Pulse 97 97 97 Oximetry 10/14/19 10/14/19 10/14/19 10:30 10:45 10:58 Temperature Pulse Rate 129 H 131 H 134 H Pulse Rate [ From Monitor] Pulse Rate [ Right Radial] Respiratory 25 H 24 Rate Blood Pressure 84/45 79/46 79/46 O2 Sat by Pulse 97 97 98 Oximetry 10/14/19 10/14/19 10/14/19 11:00 11:15 11:27 Temperature Pulse Rate 135 H 138 H 142 H Pulse Rate [ From Monitor] Pulse Rate [ Right Radial] Respiratory 23 27 H Rate Blood Pressure 85/47 85/46 91/52 O2 Sat by Pulse 97 97 Oximetry 10/14/19 10/14/19 10/14/19 11:30 11:45 12:00 Temperature Pulse Rate 144 H 143 H 146 H Pulse Rate [ 147 H From Monitor] Pulse Rate [ Right Radial] Respiratory 25 H 26 H 25 H Rate Blood Pressure 89/51 90/52 90/53 O2 Sat by Pulse 96 95 95 Oximetry - General Appearance General appearance: intubated EENT: ATNC Respiratory: Present: Decreased Breath Sounds (intubated on ventilator) Cardiology: tachycardia, S1S2 Gastrointestinal: other (abdominal wound vac in place, orogastric tube intact) Integumentary: other (abdominal wound vac noted) Neurologic: other (intubated and sedated on ventilator) Musculoskeletal: other (2+ edema to BLE) Psychiatric: other (unable to assess) - Lab 10/14/19 04:47 10/14/19 04:47 Most recent lab results ABG pH 7.353 pH Units (7.350-7.450) 10/14/19 05:40 ABG pCO2 35.1 mm Hg 10/14/19 05:40 ABG pO2 76.3 mm Hg (80.0-90.0) L 10/14/19 05:40 ABG HCO3 19.1 mmol/L (20.0-26.0) L 10/14/19 05:40 ABG O2 Saturation 95.3 % (95.0-99.0) 10/14/19 05:40 Calcium 7.4 mg/dL (8.4-10.2) L 10/14/19 04:47 Phosphorus 5.60 mg/dL (2.5-4.5) H 10/14/19 10:14 Magnesium 2.10 mg/dL (1.7-2.3) 10/14/19 10:14 Urine Creatinine 116.8 mg/dL (0.1-20.0) H 10/11/19 06:23 Urine Creatinine 118.2 mg/dL (0.1-20.0) H 10/11/19 06:23 Urine Sodium 14 mmol/L 10/11/19 06:23 Urine Total Protein 104 mg/dL (5-11.8) H 10/11/19 06:23 Urine Total Protein 105 mg/dL (5-11.8) H 10/11/19 06:23 Medications & Allergies - Medications Allergies/Adverse Reactions: Allergies Sulfa (Sulfonamide Antibiotics) Allergy (Severe, Verified 03/22/16 18:34) Rash oxytetracycline [From Terramycin] Allergy (Verified 03/22/16 10:32) Unknown oxytetracycline HCl [From Terramycin] Allergy (Verified 03/22/16 10:32) Unknown Penicillins Adverse Reaction (Severe, Verified 03/22/16 18:34) Shortness of Breath Home Medications: Home Medications Medication Instructions Recorded Confirmed Last Taken Type ALBUTEROL Inhaler (OR & NICU) 2 puff IH QID PRN #1 inhalation 08/17/18 10/06/19 Unknown Rx [ProAir HFA Inhaler] Arformoterol Nebu [Brovana Nebu] 15 mcg IH Q12HRT ml 08/17/18 10/06/19 10/05/19 Rx Benzonatate [Tessalon Perles] 100 mg PO Q8HR capsule 08/17/18 10/06/19 10/03/19 21:00 Rx Citalopram [Celexa] 20 mg PO QDAY #30 tablet 08/17/18 10/06/19 10/04/19 Rx Ipratropium/Albuterol Sulfate 1 ampul IH Q6HRT #30 ampul.neb 08/17/18 10/06/19 10/05/19 21:00 Rx [DUONEB *Not for PRN Use*] Lisinopril [Zestril TAB] 20 mg PO DAILY #30 tablet 08/17/18 10/06/19 10/05/19 08:00 Rx Metoprolol [Lopressor TAB] 100 mg PO BID #60 tablet 08/17/18 10/06/19 10/05/19 08:00 Rx Pravastatin [Pravachol] 40 mg PO QHS #30 tablet 08/17/18 10/06/19 10/04/19 22:00 Rx Symbicort 160-4.5 Mcg Inhaler 1 puff INHALATION BID #30 08/17/18 10/06/19 09/05/19 23:00 Rx Acetaminophen [Acetaminophen TAB] 2 tab PO Q4H PRN #30 tablet 10/03/19 10/06/19 Unknown Rx Bisacodyl [Dulcolax suppos] 10 mg MA QDAY PRN #4 supp.rect 10/03/19 10/06/19 Unknown Rx Pantoprazole [Protonix TAB] 40 mg PO BID #60 tablet 10/03/19 10/06/19 10/04/19 21:00 Rx Sucralfate [Carafate] 1 gm PO Q6HR 30 Days oral.liqd 10/03/19 10/06/19 10/05/19 08:00 Rx levoFLOXacin [Levaquin TAB] 750 mg PO QDAY #2 tablet 10/03/19 10/06/19 10/04/19 08:00 Rx oxyCODONE /ACETAMINOPHEN [Percocet 1 tab PO Q4H PRN #26 tablet 10/03/19 10/06/19 10/04/19 21:00 Rx 5/325 mg] Active Medications: Generic Name Dose Route Start Last Admin Trade Name Freq PRN Reason Stop Dose Admin Acetaminophen 650 mg 10/05/19 21:22 10/09/19 05:09 Tylenol PO 650 mg Q4H PRN Administration Pain MILD(1-3)/Fever >100.5/ROMANO Albuterol 2.5 mg 10/05/19 21:36 Proventil IH Q4HRT PRN Shortness Of Breath Albuterol/Ipratropium 1 ampul 10/06/19 02:00 10/14/19 07:16 Duoneb *Not For Prn Use* IH Not Given Q6HRT VERÓNICA Arformoterol Tartrate 15 mcg 10/06/19 08:30 10/14/19 07:16 Brovana Nebu IH Not Given Q12HRT VERÓNICA Benzonatate 100 mg 10/09/19 14:00 10/14/19 06:26 Tessalon Perles PO Not Given Q8HR VERÓNICA Budesonide 0.5 mg 10/07/19 12:20 10/14/19 07:16 Pulmicort IH Not Given Q12HRT VERÓNICA Citalopram Hydrobromide 20 mg 10/06/19 10:00 10/14/19 09:10 Celexa PO Not Given QDAY VERÓNICA Digoxin 0.25 mg 10/14/19 11:11 10/14/19 11:27 Lanoxin IV 10/15/19 00:01 0.25 mg Q6HR VERÓNICA Administration Fentanyl 50 mcg 10/14/19 02:19 Sublimaze IV Q10MIN PRN ANALGESIA Folic Acid 1 mg 10/13/19 10:00 10/14/19 09:09 Folvite PO Not Given QDAY VERÓNICA Furosemide 40 mg 10/12/19 10:00 10/14/19 09:09 Lasix IV Not Given QDAY VERÓNICA Hydromorphone HCl 0.5 mg 10/05/19 21:22 10/13/19 06:59 Dilaudid IV 0.5 mg Q3H PRN Administration Pain , Severe (7-10) Hydromorphone HCl 0.5 mg 10/13/19 18:16 10/13/19 18:35 Dilaudid IV 0.5 mg Q10MIN PRN Administration Pain , Severe (7-10) Metronidazole 500 mg in 100 mls @ 100 mls/hr 10/10/19 14:00 10/14/19 06:00 Flagyl 500 Mg/100 Ml IV 100 mls/hr Q8HR VERÓNICA Administration Protocol Cefepime HCl 2 gm in 100 mls @ 200 mls/hr 10/11/19 14:00 10/14/19 06:00 Cefepime/Ns 2 Gm/100 Ml IV 200 mls/hr Q8HR VERÓNICA Administration Protocol Fluconazole 200 mls @ 100 mls/hr 10/12/19 11:00 10/14/19 11:11 Diflucan IV 100 mls/hr Q24HR VERÓNICA Administration Protocol Lorazepam 100 mg/ Sodium 100 mls @ 1 mls/hr 10/13/19 22:00 Chloride/ Miscellaneous IV Information TITR VERÓNICA Protocol 1 MG/HR Sodium Chloride 1,000 mls @ 250 mls/hr 10/14/19 11:00 10/14/19 11:12 Nacl 0.9% 1000 Ml IV 250 mls/hr DIRECT VERÓNICA Administration Diltiazem HCl 100 mg in 100 mls @ 5 mls/hr 10/14/19 03:00 10/14/19 07:00 Cardizem/D5w 100mg/100ml IV 0 mg/hr TITR VERÓNICA 0 mls/hr Titration Protocol 5 MG/HR Fentanyl Citrate 2,000 mcg in 100 mls @ 6.85 mls/hr 10/14/19 03:00 10/14/19 03:10 Fentanyl Drip Premix IV 1 mcg/kg/hr TITR VERÓNICA 6.85 mls/hr Titration Protocol 1 MCG/KG/HR Esmolol HCl 2.5 gm in 250 mls @ 41.1 mls/hr 10/14/19 09:00 10/14/19 10:30 Brevibloc Drip 2.5gm/250ml IV 0 mcg/kg/min TITR VERÓNICA 0 mls/hr Titration Protocol 50 MCG/KG/MIN Amino Acids/Electrolytes/Dextrose 2,016 mls @ 84 mls/hr 10/14/19 20:00 Tpn Adult IV 10/15/19 19:59 DAILY@2000 [facility] Protocol Sodium Chloride 500 mls @ 999 mls/hr 10/14/19 12:15 Nacl 0.9% 1000 Ml IV 10/14/19 12:45 BOLUS ONE Insulin Human Lispro 0 unit 10/14/19 12:00 10/14/19 12:14 Humalog SUB-Q Not Given Q6HR [facility] Protocol Lorazepam 2 mg 10/12/19 09:22 10/14/19 02:25 Ativan IV 2 mg Q1HR PRN Administration CIWA-Ar 8-15 Lorazepam 2 mg 10/13/19 21:22 Ativan IV Q10MIN PRN Agitation Montelukast Sodium 10 mg 10/09/19 22:00 10/13/19 21:50 Singulair PO Not Given QHS [facility] Multi-Ingred Cream/Lotion/Oil/Oint 1 applic 10/14/19 02:19 Artificial Tears Ophth Oint OU Q4HR PRN Dry Eye(s) Multivitamins 1 each 10/13/19 10:00 10/14/19 09:10 Theragran Tab PO Not Given QDAY [facility] Ondansetron HCl 4 mg 10/05/19 21:22 10/11/19 18:20 Zofran IV 4 mg Q3H PRN Administration Nausea And Vomiting Oxycodone/Acetaminophen 2 tab 10/06/19 12:26 10/12/19 18:45 Percocet 5/325 PO 2 tab Q6H PRN Administration Pain, Moderate (4-6) Pantoprazole Sodium 40 mg 10/06/19 10:00 10/14/19 09:10 Protonix PO Not Given BID VERÓNICA Sodium Chloride 10 ml 10/05/19 22:00 10/14/19 11:11 Sodium Chloride Flush Syringe 10 Ml IV 10 ml BID VERÓNICA Administration Sodium Chloride 10 ml 10/05/19 21:22 Sodium Chloride Flush Syringe 10 Ml IV PRN PRN LINE FLUSH Thiamine HCl 100 mg 10/13/19 10:00 10/14/19 09:10 Vitamin B-1 PO Not Given QDAY VERÓNICA
--- NOTE | 2019-10-14 13:01 | Consultation ---
HISTORY OF PRESENT ILLNESS: This is a 54-year-old male with a past medical history of hypertension, COPD on home O2, who comes in with shortness of breath. The patient has been hospitalized for abdominal pain and had undergone surgery with wound dehiscence. The patient recently had a CT scan of the chest done that showed left lower lobe infiltrate, hence the consult. The patient has been on a Ventimask for the past 5 days, unable to be weaned. PAST MEDICAL HISTORY: COPD. SOCIAL HISTORY: Lives at home with a history of tobacco abuse. Denies any alcohol or illicit drug use and gainfully employed. REVIEW OF SYSTEMS: No hemoptysis or hematemesis. No diarrhea. Denies any chest pain. Does report cough. Denies any sputum production. ALLERGIES: SULFA. PHYSICAL EXAMINATION: GENERAL: male lying in bed at 35 degrees in no distress, wearing 35% Ventimask with O2 sat of 96%. VITAL SIGNS: Blood pressure 138/70, pulse 96, respirations 24. HEENT: Pupils reactive. Oral mucosa was moist. No JVD. NECK: Supple. CARDIOVASCULAR: Normal S1, S2. LUNGS: Decreased breath sounds at right base. ABDOMEN: Positive bowel sounds, soft. Status post catheter in place draining serous fluid, slightly cloudy. EXTREMITIES: Positive edema trace. LABORATORY DATA: Noted. DIAGNOSTIC DATA: CT scan of the chest shows dense left lower lobe infiltrate. IMPRESSION: This is a gentleman with acute on chronic respiratory failure, on home O2 with abdominal wound dehiscence status post drainage of fluid collection with possible pneumonia on chest x-ray. We will continue on O2, wean as tolerated. We will monitor for any evidence of worsening respiratory failure. We would suggest repeating a chest x-ray in a few days to evaluate for any improvement on CT finding. Continue nebulizer treatments, incentive spirometry as indicated. Continue supportive care and chest physiotherapy if able. I spoke with the sister and the patient in reference to status and patient's overall condition. JOB# [id number] HAMZAH/LEO
--- NOTE | 2019-10-14 16:06 | Event Note ---
Date: 10/14/19 Routine check - BP, UOP, and skin color better. Off esmolol now. Pt responding to fluid replacement. Continue present management. Spoke with .
[2019-10-14] MEDS ORDERED: TOTAL PARENTERAL NUTRITION 2,016 ML IV SCH (20:00)
[2019-10-14] MEDS: MONTELUKAST 10 MG TAB PO SCH (23:47)
[2019-10-15] MEDS: IPRATROPIUM/ALBUTEROL SULFATE 3 ML AMPUL.NEB IH SCH ×4 (01:09→19:46)
[2019-10-15] MEDS: fentaNYL DRIP Premix 2,000 MCG/100 ML BAG IV SCH ×2 (02:06→17:06)
[2019-10-15] MEDS: SODIUM CHLORIDE 0.9% 1000 ML 1,000 ML IV SCH (02:08)
--- NOTE | 2019-10-15 03:19 | XRay Report ---
CHEST 1 VIEW INDICATION / CLINICAL INFORMATION: ETT placement and routine. COMPARISON: None available. FINDINGS: SUPPORT DEVICES: Endotracheal tube terminates about 4 cm above the chetan. The esophagogastric tube a nd the right arm PICC line both project in expected position with the right PICC line terminating in the right atrial region. HEART / MEDIASTINUM: No significant abnormality. LUNGS / PLEURA: Patchy densities throughout both lungs. Signer Name: Jus Paulson MD Signed: 10/15/2019 3:15 AM Workstation Name: [email or web address]
[2019-10-15] MEDS: metroNIDAZOLE/NS 500 MG/100 ML 500 MG/100 ML BAG IV SCH (05:00)
[2019-10-15] MEDS: CEFEPIME/NS 2 GM/100 ML 2 GM/100 ML BAG IV SCH (05:10)
[2019-10-15 05:29] LABS: Hematocrit 27.3 % (35.5-45.6); Hemoglobin 8.8 gm/dl (11.8-15.2); Mean Corpuscular HGB Conc 32 % (32-34); Mean Corpuscular Volume 94 fl (84-94); Platelet Count 290 K/mm3 (140-440); Red Blood Count 2.89 M/mm3 (3.65-5.03); Red Cell Distribution Width 16.6 % (13.2-15.2)
[2019-10-15 05:50] LABS: Alanine Aminotransferase 31 units/L (7-56); Albumin 1.7 g/dL (3.9-5); BUN/Creatinine Ratio 35; Blood Urea Nitrogen 42 mg/dL (9-20); Calcium 7.3 mg/dL (8.4-10.2); Hemolysis Index 7
[2019-10-15] MEDS: DIGOXIN 0.5 MG/2 ML INJ IV SCH ×2 (06:03→16:19)
[2019-10-15] MEDS: BENZONATATE 100 MG CAP PO SCH (06:05)
[2019-10-15] MEDS: INSULIN LISPRO 100 UNIT/ML SUB-Q SCH ×4 (06:05→18:04)
[2019-10-15 06:32] LABS: ABG Base Excess -3.7 mmol/L (-2.0-3.0); ABG HCO3 22.7 mmol/L (20.0-26.0); ABG Methemoglobin 0.6 % (0.0-1.5); ABG Oxygen Saturation 97.8 % (95.0-99.0); ABG PCO2 47.7 mm Hg; ABG PH 7.296 pH Units (7.350-7.450); ABG PO2 114.7 mm Hg (80.0-90.0)
[2019-10-15] MEDS: BUDESONIDE 0.5 MG/2 ML NEBU IH SCH ×2 (07:23→19:46)
[2019-10-15] MEDS: ARFORMOTEROL 15 MCG/2 ML NEBU IH SCH (07:23)
[2019-10-15] MEDS ORDERED: SODIUM CHLORIDE 0.9% 500 ML IVPB IV PRN (08:29)
[2019-10-15] MEDS: LORazepam 100 MG in SODIUM CHLORIDE 0.9% 50 ML, EMPTY BAG 0 ML IV SCH (08:36)
--- NOTE | 2019-10-15 09:25 | Progress Note ---
Assessment and Plan - Patient Problems (1) Dehiscence of closure of fascia, superficial or muscular Current Visit: No Status: Acute Qualifiers: Encounter type: initial encounter Qualified Code(s): T81.32XA - Disruption of internal operation (surgical) wound, not elsewhere classified, initial encounter Plan to address problem: Pt stable. s/p ex lap with closure of abdominal wall and wound vac placement (10/05) - POD#10; s/p Re-exploration, washout, transection of colon, Abthera placement - 10/13 - POD#2. With the amount of contamination he had, it is expected he would have a large fl uid loss from the abdomen. The fluid is of expected appearance. One of the main objectives at this point will be to keep up with his fluid losses. Patient appears to be behind in fluids right now. He would benefit from continued aggressive resuscitation. Rec: 1) Neuro - sedated. Family states that he has not had a drink in 3 weeks. Perhaps withdrawal may not have been involved. Pt may benefit from additional sedation from Precedex or Propofol. 2) CV - Pt appears to be intravascularly depleted. Appears improved compared to yesterday. Would continue fluids at high rate for now. May benefit from periodic colloid. 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 We will plan for return trip to OR on Tuesday for another washout and resection of the anastomotic site. If patient is doing very well, may consider colostomy creation at that time as well. Otherwise, it will most likely be on the follow-up trip. Patient had a recent episode of an upper GI bleed secondary to an NG tube. We will try to remove OG tube as soon as possible. Should keep for now as he is in intestinal discontinuity. 5) - BUN/Cr improved today. Most likely related to intravascular depletion. 6) ID - Abx per ID. Enterococcus on prelim cultures 7) Nutrition - Begin TPN today 8) DVT prophylaxis - SCDs. Start SQ heparin once OGT removed (recent GI bleed due to NGT) 9) Family -Spoke with again this AM. Please call with questions. Subjective Date of service: 10/15/19 Patient Reports: Positive: other (reviewed note about green liquid in ETT) Objective Vital Signs - 12hr 1210/14/19 10/14/19 21:30 21:42 21:44 Temperature Pulse Rate 156 H 155 H Pulse Rate [ 158 H Anterior Bilateral Upper Lobe] Pulse Rate [ From Monitor] Respiratory 27 H Rate Respiratory 19 Rate [Anterior Bilateral Upper Lobe] Blood Pressure 113/66 105/54 O2 Sat by Pulse 97 98 Oximetry 10/14/19 10/14/19 10/14/19 21:45 22:00 22:15 Temperature Pulse Rate 157 H 158 H 159 H Pulse Rate [ Anterior Bilateral Upper Lobe] Pulse Rate [ 120 H From Monitor] Respiratory 19 21 19 Rate Respiratory Rate [Anterior Bilateral Upper Lobe] Blood Pressure 116/57 105/51 104/51 O2 Sat by Pulse 99 96 98 Oximetry 10/14/19 10/14/19 10/14/19 22:30 22:45 23:00 Temperature Pulse Rate 158 H 158 H 159 H Pulse Rate [ Anterior Bilateral Upper Lobe] Pulse Rate [ From Monitor] Respiratory 20 19 19 Rate Respiratory Rate [Anterior Bilateral Upper Lobe] Blood Pressure 107/55 114/54 109/58 O2 Sat by Pulse 98 98 98 Oximetry 10/14/19 10/14/19 10/14/19 23:15 23:18 23:30 Temperature Pulse Rate 160 H 159 H 160 H Pulse Rate [ Anterior Bilateral Upper Lobe] Pulse Rate [ From Monitor] Respiratory 20 19 18 Rate Respiratory Rate [Anterior Bilateral Upper Lobe] Blood Pressure 116/54 104/51 113/55 O2 Sat by Pulse 99 98 98 Oximetry 10/14/19 10/14/19 10/14/19 23:31 23:42 23:45 Temperature Pulse Rate 160 H 160 H 160 H Pulse Rate [ Anterior Bilateral Upper Lobe] Pulse Rate [ From Monitor] Respiratory 19 19 Rate Respiratory Rate [Anterior Bilateral Upper Lobe] Blood Pressure 113/55 113/55 113/58 O2 Sat by Pulse 99 98 Oximetry 10/15/19 10/15/19 10/15/19 00:00 00:15 00:30 Temperature 99.9 F H Pulse Rate 157 H 158 H 161 H Pulse Rate [ Anterior Bilateral Upper Lobe] Pulse Rate [ From Monitor] Respiratory 20 21 18 Rate Respiratory Rate [Anterior Bilateral Upper Lobe] Blood Pressure 122/63 125/60 120/53 O2 Sat by Pulse 98 98 98 Oximetry 10/15/19 10/15/19 10/15/19 00:45 01:00 01:05 Temperature Pulse Rate 160 H 160 H 159 H Pulse Rate [ Anterior Bilateral Upper Lobe] Pulse Rate [ From Monitor] Respiratory 17 19 Rate Respiratory Rate [Anterior Bilateral Upper Lobe] Blood Pressure 118/54 119/54 119/54 O2 Sat by Pulse 98 98 98 Oximetry 10/15/19 10/15/19 10/15/19 01:15 01:30 01:45 Temperature Pulse Rate 160 H 162 H 161 H Pulse Rate [ Anterior Bilateral Upper Lobe] Pulse Rate [ From Monitor] Respiratory 19 19 18 Rate Respiratory Rate [Anterior Bilateral Upper Lobe] Blood Pressure 125/58 125/58 123/56 O2 Sat by Pulse 98 98 98 Oximetry 10/15/19 10/15/19 10/15/19 02:00 02:15 02:30 Temperature Pulse Rate 161 H 162 H 163 H Pulse Rate [ Anterior Bilateral Upper Lobe] Pulse Rate [ 162 H From Monitor] Respiratory 19 19 18 Rate Respiratory Rate [Anterior Bilateral Upper Lobe] Blood Pressure 134/66 132/63 122/58 O2 Sat by Pulse 99 98 98 Oximetry 10/15/19 10/15/19 10/15/19 02:45 03:00 03:15 Temperature Pulse Rate 163 H 161 H 162 H Pulse Rate [ Anterior Bilateral Upper Lobe] Pulse Rate [ From Monitor] Respiratory 20 29 H 14 Rate Respiratory Rate [Anterior Bilateral Upper Lobe] Blood Pressure 125/59 125/59 136/62 O2 Sat by Pulse 98 98 98 Oximetry 10/15/19 10/15/19 10/15/19 03:30 03:45 04:00 Temperature 98.8 F Pulse Rate 158 H 158 H Pulse Rate [ Anterior Bilateral Upper Lobe] Pulse Rate [ 162 H From Monitor] Respiratory 18 18 Rate Respiratory Rate [Anterior Bilateral Upper Lobe] Blood Pressure 136/62 119/55 125/53 O2 Sat by Pulse 98 98 98 Oximetry 10/15/19 10/15/19 10/15/19 04:15 04:30 04:45 Temperature Pulse Rate 159 H 156 H 158 H Pulse Rate [ Anterior Bilateral Upper Lobe] Pulse Rate [ From Monitor] Respiratory 20 19 17 Rate Respiratory Rate [Anterior Bilateral Upper Lobe] Blood Pressure 104/52 106/54 110/54 O2 Sat by Pulse 99 99 99 Oximetry 10/15/19 10/15/19 10/15/19 05:00 05:15 05:30 Temperature Pulse Rate 156 H 156 H 155 H Pulse Rate [ Anterior Bilateral Upper Lobe] Pulse Rate [ From Monitor] Respiratory 18 18 17 Rate Respiratory Rate [Anterior Bilateral Upper Lobe] Blood Pressure 108/53 109/56 113/55 O2 Sat by Pulse 99 99 98 Oximetry 10/15/19 10/15/19 10/15/19 05:31 05:45 06:00 Temperature Pulse Rate 158 H 157 H 157 H Pulse Rate [ Anterior Bilateral Upper Lobe] Pulse Rate [ From Monitor] Respiratory 20 19 Rate Respiratory Rate [Anterior Bilateral Upper Lobe] Blood Pressure 113/55 118/57 117/51 O2 Sat by Pulse 98 98 99 Oximetry 10/15/19 10/15/19 10/15/19 06:03 06:15 06:30 Temperature Pulse Rate 157 H 159 H 159 H Pulse Rate [ Anterior Bilateral Upper Lobe] Pulse Rate [ From Monitor] Respiratory 19 16 Rate Respiratory Rate [Anterior Bilateral Upper Lobe] Blood Pressure 117/51 118/55 112/55 O2 Sat by Pulse 98 98 Oximetry 10/15/19 10/15/19 10/15/19 06:45 07:00 07:15 Temperature Pulse Rate 160 H 160 H 160 H Pulse Rate [ Anterior Bilateral Upper Lobe] Pulse Rate [ From Monitor] Respiratory 18 15 18 Rate Respiratory Rate [Anterior Bilateral Upper Lobe] Blood Pressure 112/51 112/51 107/51 O2 Sat by Pulse 99 99 99 Oximetry 10/15/19 10/15/19 10/15/19 07:18 07:30 07:45 Temperature Pulse Rate 162 H 161 H 159 H Pulse Rate [ Anterior Bilateral Upper Lobe] Pulse Rate [ From Monitor] Respiratory 17 14 Rate Respiratory Rate [Anterior Bilateral Upper Lobe] Blood Pressure 107/51 116/50 117/55 O2 Sat by Pulse 96 97 97 Oximetry 10/15/19 10/15/19 10/15/19 08:00 08:15 08:30 Temperature Pulse Rate 160 H 160 H 162 H Pulse Rate [ Anterior Bilateral Upper Lobe] Pulse Rate [ 160 H From Monitor] Respiratory 19 18 19 Rate Respiratory Rate [Anterior Bilateral Upper Lobe] Blood Pressure 113/55 121/54 119/58 O2 Sat by Pulse 97 97 97 Oximetry 10/15/19 08:45 Temperature Pulse Rate 160 H Pulse Rate [ Anterior Bilateral Upper Lobe] Pulse Rate [ From Monitor] Respiratory 18 Rate Respiratory Rate [Anterior Bilateral Upper Lobe] Blood Pressure 121/59 O2 Sat by Pulse 97 Oximetry - General physical appearance no distress, no pain, obese - Respiratory normal expansion, normal respiratory effort - Abdomen soft, tender, other (AbThera in place with thin orangish drainage) - Integumentary no rash, no growths, no abnormal pigmentation - Labs 10/15/19 04:32 10/15/19 04:32 Diabetes panel 10/15/19 Range/Units 04:32 Sodium 147 H (137-145) mmol/L Potassium 4.3 (3.6-5.0) mmol/L Chloride 114.0 H (98-107) mmol/L Carbon Dioxide 19 L (22-30) mmol/L BUN 42 H (9-20) mg/dL Creatinine 1.2 (0.8-1.5) mg/dL Glucose 112 H (75-100) mg/dL Calcium 7.3 L (8.4-10.2) mg/dL AST 72 H (5-40) units/L ALT 31 (7-56) units/L Alkaline Phosphatase 68 (35-129) units/L Total Protein 4.0 L D (6.3-8.2) g/dL Albumin 1.7 L (3.9-5) g/dL Triglycerides 114 (2-149) mg/dL Calcium panel 10/14/19 10/15/19 Range/Units 10:14 04:32 Calcium 7.3 L (8.4-10.2) mg/dL Phosphorus 5.60 H 3.60 D (2.5-4.5) mg/dL Albumin 1.7 L (3.9-5) g/dL Pituitary panel 10/15/19 Range/Units 04:32 Sodium 147 H (137-145) mmol/L Potassium 4.3 (3.6-5.0) mmol/L Chloride 114.0 H (98-107) mmol/L Carbon Dioxide 19 L (22-30) mmol/L BUN 42 H (9-20) mg/dL Creatinine 1.2 (0.8-1.5) mg/dL Glucose 112 H (75-100) mg/dL Calcium 7.3 L (8.4-10.2) mg/dL Adrenal panel 10/15/19 Range/Units 04:32 Sodium 147 H (137-145) mmol/L Potassium 4.3 (3.6-5.0) mmol/L Chloride 114.0 H (98-107) mmol/L Carbon Dioxide 19 L (22-30) mmol/L BUN 42 H (9-20) mg/dL Creatinine 1.2 (0.8-1.5) mg/dL Glucose 112 H (75-100) mg/dL Calcium 7.3 L (8.4-10.2) mg/dL Total Bilirubin 0.30 (0.1-1.2) mg/dL AST 72 H (5-40) units/L ALT 31 (7-56) units/L Alkaline Phosphatase 68 (35-129) units/L Total Protein 4.0 L D (6.3-8.2) g/dL Albumin 1.7 L (3.9-5) g/dL
[2019-10-15] MEDS ORDERED: VANCOMYCIN 1,500 MG in SODIUM CHLORIDE 0.9% 500 ML 500 ML IV ONE (10:00)
[2019-10-15] MEDS: FLUCONAZOLE 400 MG 200 ML IV SCH (10:39)
[2019-10-15] MEDS: PANTOPRAZOLE 40 MG INJ IV SCH (10:39)
--- NOTE | 2019-10-15 10:41 | Progress Note ---
Assessment and Plan 54 y/o male with anastomic leak 1. CV-tachycardia but stable BP. Agree with surgery that patient is most likely intravascular deplete. Agree with 1:1 replacement of output from OG. Will also bolus Lactated Ringers today and use those to replace output from OG. Repeat CBC in am. If hemoglobin is lower (likely dilutional) will transfuse blood as this will definitely stay intravascularly. Follow up cardiology recs. 2. Pulm-stable on Vent. FiO2 down to 50% now. CXR shows right lower lobe airspace disease. Has some light green substance being suctioned from endotracheal tube. No epidsodes of hypoxemia or increasing FiO2 requirements. CXR is not worse. At this point will watch. May need bronch if output increases worsening hypoxemia happens. 3. GI-Per surgery, plan to go back to OR tomorrow and maybe . Remains on TPN. Abx therapy per ID 4. Renal- Renal function and output have improved. Will continue to monitor 5. Neuro- on rounds, per nursing, patient did not wake up during sedation vacation. May still be drug effect as he did have some renal impairment for several days. have asked Nursing to wean down the ativan, maybe even to off. Keep fent for pain control given what's going on in abdomen. Will try again tomorrow or later today pending what time he is set for OR tomorrow. May need change of sedation but will hold off for right now. Overall prognosis is guarded. Will continue to follow. CCT 31 minutes. Subjective Date of service: 10/15/19 Principal diagnosis: acute renal failure Interval history: HR remains elevated. BP stable. Urine output is improving and so is color. Reviewed Surgery note. Cardiology [employer]ICE evaluating patient now. No family currently at bedside. Has a metabolic acidosis this am, combination of renal and iatrogenic from saline administration. Objective Vital Signs - 12hr 10/14/19 10/14/19 10/14/19 22:45 23:00 23:15 Temperature Pulse Rate 158 H 159 H 160 H Pulse Rate [ From Monitor] Respiratory 19 19 20 Rate Blood Pressure 114/54 109/58 116/54 O2 Sat by Pulse 98 98 99 Oximetry 10/14/19 10/14/19 10/14/19 23:18 23:30 23:31 Temperature Pulse Rate 159 H 160 H 160 H Pulse Rate [ From Monitor] Respiratory 19 Rate Blood Pressure 104/51 113/55 113/55 O2 Sat by Pulse 98 98 99 Oximetry 10/14/19 10/14/19 10/15/19 23:42 23:45 00:00 Temperature 99.9 F H Pulse Rate 160 H 160 H 157 H Pulse Rate [ From Monitor] Respiratory 19 20 Rate Blood Pressure 113/55 113/58 122/63 O2 Sat by Pulse 98 98 Oximetry 10/15/19 10/15/19 10/15/19 00:15 00:30 00:45 Temperature Pulse Rate 158 H 161 H 160 H Pulse Rate [ From Monitor] Respiratory 21 18 17 Rate Blood Pressure 125/60 120/53 118/54 O2 Sat by Pulse 98 98 98 Oximetry 10/15/19 10/15/19 10/15/19 01:00 01:05 01:15 Temperature Pulse Rate 160 H 159 H 160 H Pulse Rate [ From Monitor] Respiratory 19 19 Rate Blood Pressure 119/54 119/54 125/58 O2 Sat by Pulse 98 98 98 Oximetry 10/15/19 10/15/19 10/15/19 01:30 01:45 02:00 Temperature Pulse Rate 162 H 161 H 161 H Pulse Rate [ 162 H From Monitor] Respiratory 19 18 19 Rate Blood Pressure 125/58 123/56 134/66 O2 Sat by Pulse 98 98 99 Oximetry 10/15/19 10/15/19 10/15/19 02:15 02:30 02:45 Temperature Pulse Rate 162 H 163 H 163 H Pulse Rate [ From Monitor] Respiratory 19 18 20 Rate Blood Pressure 132/63 122/58 125/59 O2 Sat by Pulse 98 98 98 Oximetry 10/15/19 10/15/19 10/15/19 03:00 03:15 03:30 Temperature Pulse Rate 161 H 162 H Pulse Rate [ From Monitor] Respiratory 29 H 14 Rate Blood Pressure 125/59 136/62 136/62 O2 Sat by Pulse 98 98 98 Oximetry 10/15/19 10/15/19 10/15/19 03:45 04:00 04:15 Temperature 98.8 F Pulse Rate 158 H 158 H 159 H Pulse Rate [ 162 H From Monitor] Respiratory 18 18 20 Rate Blood Pressure 119/55 125/53 104/52 O2 Sat by Pulse 98 98 99 Oximetry 10/15/19 10/15/19 10/15/19 04:30 04:45 05:00 Temperature Pulse Rate 156 H 158 H 156 H Pulse Rate [ From Monitor] Respiratory 19 17 18 Rate Blood Pressure 106/54 110/54 108/53 O2 Sat by Pulse 99 99 99 Oximetry 10/15/19 10/15/19 10/15/19 05:15 05:30 05:31 Temperature Pulse Rate 156 H 155 H 158 H Pulse Rate [ From Monitor] Respiratory 18 17 Rate Blood Pressure 109/56 113/55 113/55 O2 Sat by Pulse 99 98 98 Oximetry 10/15/19 10/15/19 10/15/19 05:45 06:00 06:03 Temperature Pulse Rate 157 H 157 H 157 H Pulse Rate [ From Monitor] Respiratory 20 19 Rate Blood Pressure 118/57 117/51 117/51 O2 Sat by Pulse 98 99 Oximetry 10/15/19 10/15/19 10/15/19 06:15 06:30 06:45 Temperature Pulse Rate 159 H 159 H 160 H Pulse Rate [ From Monitor] Respiratory 19 16 18 Rate Blood Pressure 118/55 112/55 112/51 O2 Sat by Pulse 98 98 99 Oximetry 10/15/19 10/15/19 10/15/19 07:00 07:15 07:18 Temperature Pulse Rate 160 H 160 H 162 H Pulse Rate [ From Monitor] Respiratory 15 18 Rate Blood Pressure 112/51 107/51 107/51 O2 Sat by Pulse 99 99 96 Oximetry 10/15/19 10/15/19 10/15/19 07:30 07:45 08:00 Temperature Pulse Rate 161 H 159 H 160 H Pulse Rate [ 160 H From Monitor] Respiratory 17 14 19 Rate Blood Pressure 116/50 117/55 113/55 O2 Sat by Pulse 97 97 97 Oximetry 10/15/19 10/15/19 10/15/19 08:15 08:30 08:45 Temperature Pulse Rate 160 H 162 H 160 H Pulse Rate [ From Monitor] Respiratory 18 19 18 Rate Blood Pressure 121/54 119/58 121/59 O2 Sat by Pulse 97 97 97 Oximetry 10/15/19 10/15/19 10/15/19 09:00 09:15 09:30 Temperature Pulse Rate 162 H 162 H 164 H Pulse Rate [ From Monitor] Respiratory 18 19 23 Rate Blood Pressure 118/55 120/56 113/65 O2 Sat by Pulse 97 97 96 Oximetry 10/15/19 10:15 Temperature Pulse Rate 161 H Pulse Rate [ From Monitor] Respiratory Rate Blood Pressure O2 Sat by Pulse 96 Oximetry Constitutional: alert Eyes: non-icteric ENT: oropharynx moist Neck: supple Effort: normal Ascultation: Bilateral: diminished breath sounds Cardiovascular: regular rate and rhythm Gastrointestinal: tender Integumentary: normal Extremities: no cyanosis Neurologic: normal mental status, non-focal exam Psychiatric: mood appropriate, affect normal CBC and BMP: 10/15/19 04:32 10/15/19 04:32 ABG, PT/INR, D-dimer: ABG POC ABG pH 7.392 (7.35-7.45) 10/12/19 23:43 ABG pH 7.296 pH Units (7.350-7.450) L 10/15/19 05:30 POC ABG pCO2 43.4 (35-45) 10/12/19 23:43 ABG pCO2 47.7 mm Hg 10/15/19 05:30 POC ABG pO2 84 (80-105) 10/12/19 23:43 ABG pO2 114.7 mm Hg (80.0-90.0) H 10/15/19 05:30 POC ABG HCO3 26.4 (22-26 mml/L) 10/12/19 23:43 POC ABG Total CO2 28 (23-27mmol/L) 10/12/19 23:43 POC ABG O2 Sat 96 10/12/19 23:43 ABG O2 Saturation 97.8 % (95.0-99.0) 10/15/19 05:30 Abnormal lab findings: Abnormal Labs 10/06/19 10/06/19 10/07/19 05:36 05:36 05:54 WBC 21.8 H 21.5 H RBC 3.55 L Hgb 10.9 L Hct 32.7 L RDW Plt Count Seg Neuts % (Manual) 91.0 H Lymphocytes % (Manual) 2.0 L Seg Neutrophils # Man 19.8 H Lymphocytes # (Manual) 0.4 L Monocytes # (Manual) 1.1 H ABG pH POC ABG pO2 ABG pO2 ABG HCO3 ABG Base Excess ABG Hemoglobin Oxyhemoglobin Sodium 135 L Potassium Chloride 95.9 L Carbon Dioxide BUN Creatinine 0.7 L Glucose POC Glucose Calcium Phosphorus Magnesium Direct Bilirubin AST C-Reactive Protein Total Protein 5.7 L Albumin 2.5 L Prealbumin Urine Creatinine Urine Total Protein 10/07/19 10/09/19 10/09/19 05:54 10:52 10:52 WBC 16.6 H RBC Hgb Hct RDW Plt Count 498 H Seg Neuts % (Manual) 93.0 H Lymphocytes % (Manual) 5.0 L Seg Neutrophils # Man 15.4 H Lymphocytes # (Manual) 0.8 L Monocytes # (Manual) ABG pH POC ABG pO2 ABG pO2 ABG HCO3 ABG Base Excess ABG Hemoglobin Oxyhemoglobin Sodium Potassium Chloride 97.9 L Carbon Dioxide 20 L D BUN 23 H Creatinine 1.7 H D Glucose 109 H POC Glucose Calcium 8.1 L Phosphorus Magnesium Direct Bilirubin AST C-Reactive Protein Total Protein Albumin Prealbumin Urine Creatinine Urine Total Protein 10/09/19 10/10/19 10/10/19 17:23 05:30 05:30 WBC 14.6 H RBC Hgb 11.1 L Hct 33.5 L RDW Plt Count 527 H Seg Neuts % (Manual) Lymphocytes % (Manual) Seg Neutrophils # Man Lymphocytes # (Manual) Monocytes # (Manual) ABG pH POC ABG pO2 ABG pO2 ABG HCO3 ABG Base Excess ABG Hemoglobin Oxyhemoglobin Sodium 130 L D Potassium 5.1 H Chloride 90.0 L 91.0 L Carbon Dioxide 20 L 20 L BUN 27 H 35 H Creatinine 1.9 H 2.0 H Glucose 104 H POC Glucose Calcium Phosphorus Magnesium Direct Bilirubin AST C-Reactive Protein Total Protein Albumin Prealbumin Urine Creatinine Urine Total Protein 10/10/19 10/10/19 10/11/19 08:33 08:44 05:41 WBC 13.2 H RBC Hgb 11.3 L Hct 33.8 L RDW 15.3 H Plt Count 543 H Seg Neuts % (Manual) Lymphocytes % (Manual) Seg Neutrophils # Man Lymphocytes # (Manual) Monocytes # (Manual) ABG pH POC ABG pO2 ABG pO2 ABG HCO3 ABG Base Excess ABG Hemoglobin Oxyhemoglobin Sodium Potassium Chloride Carbon Dioxide BUN Creatinine Glucose 113 H POC Glucose 117 H Calcium Phosphorus Magnesium Direct Bilirubin AST C-Reactive Protein Total Protein Albumin Prealbumin Urine Creatinine Urine Total Protein 10/11/19 10/11/19 10/11/19 05:41 06:23 06:23 WBC RBC Hgb Hct RDW Plt Count Seg Neuts % (Manual) Lymphocytes % (Manual) Seg Neutrophils # Man Lymphocytes # (Manual) Monocytes # (Manual) ABG pH POC ABG pO2 ABG pO2 ABG HCO3 ABG Base Excess ABG Hemoglobin Oxyhemoglobin Sodium 134 L Potassium Chloride 96.3 L Carbon Dioxide BUN 37 H Creatinine Glucose 58 L POC Glucose Calcium Phosphorus 4.90 H Magnesium Direct Bilirubin AST C-Reactive Protein Total Protein Albumin Prealbumin Urine Creatinine 118.2 H 116.8 H Urine Total Protein 105 H 104 H 10/12/19 10/12/19 10/12/19 06:09 06:09 08:20 WBC 13.8 H RBC 3.39 L Hgb 10.2 L Hct 30.9 L RDW 15.5 H Plt Count 459 H Seg Neuts % (Manual) Lymphocytes % (Manual) Seg Neutrophils # Man Lymphocytes # (Manual) Monocytes # (Manual) ABG pH POC ABG pO2 63 L ABG pO2 ABG HCO3 ABG Base Excess ABG Hemoglobin Oxyhemoglobin Sodium 131 L Potassium Chloride 96.2 L Carbon Dioxide 21 L BUN 43 H Creatinine Glucose 72 L POC Glucose Calcium Phosphorus Magnesium Direct Bilirubin AST C-Reactive Protein Total Protein Albumin Prealbumin Urine Creatinine Urine Total Protein 10/12/19 10/12/19 10/13/19 09:30 09:30 04:20 WBC 15.7 H RBC 3.64 L Hgb 10.9 L Hct 33.1 L RDW 15.8 H Plt Count 488 H Seg Neuts % (Manual) Lymphocytes % (Manual) Seg Neutrophils # Man Lymphocytes # (Manual) Monocytes # (Manual) ABG pH POC ABG pO2 ABG pO2 ABG HCO3 ABG Base Excess ABG Hemoglobin Oxyhemoglobin Sodium Potassium Chloride Carbon Dioxide BUN Creatinine Glucose POC Glucose Calcium Phosphorus Magnesium 2.50 H Direct Bilirubin 0.3 H AST C-Reactive Protein Total Protein 5.1 L Albumin 2.2 L Prealbumin Urine Creatinine Urine Total Protein 10/13/19 10/13/19 10/13/19 04:20 18:24 20:05 WBC RBC Hgb Hct RDW Plt Count Seg Neuts % (Manual) Lymphocytes % (Manual) Seg Neutrophils # Man Lymphocytes # (Manual) Monocytes # (Manual) ABG pH 7.180 L* 7.278 L POC ABG pO2 ABG pO2 130.7 H ABG HCO3 ABG Base Excess -6.5 L -6.5 L ABG Hemoglobin 12.2 L 12.3 L Oxyhemoglobin 92.9 L Sodium Potassium Chloride Carbon Dioxide BUN 28 H Creatinine Glucose POC Glucose Calcium Phosphorus Magnesium Direct Bilirubin AST C-Reactive Protein Total Protein Albumin Prealbumin Urine Creatinine Urine Total Protein 10/14/19 10/14/19 10/14/19 04:47 04:47 05:40 WBC 24.2 H RBC Hgb 10.9 L Hct 34.2 L RDW 17.0 H Plt Count 442 H Seg Neuts % (Manual) Lymphocytes % (Manual) Seg Neutrophils # Man Lymphocytes # (Manual) Monocytes # (Manual) ABG pH POC ABG pO2 ABG pO2 76.3 L ABG HCO3 19.1 L ABG Base Excess -5.8 L ABG Hemoglobin 10.9 L Oxyhemoglobin 93.4 L Sodium Potassium 5.1 H D Chloride 109.2 H Carbon Dioxide 17 L BUN 38 H Creatinine 1.8 H D Glucose 104 H POC Glucose Calcium 7.4 L Phosphorus Magnesium Direct Bilirubin AST C-Reactive Protein Total Protein Albumin Prealbumin Urine Creatinine Urine Total Protein 10/14/19 10/14/19 10/15/19 10:14 23:46 04:32 WBC 15.5 H RBC 2.89 L Hgb 8.8 L Hct 27.3 L D RDW 16.6 H Plt Count Seg Neuts % (Manual) Lymphocytes % (Manual) Seg Neutrophils # Man Lymphocytes # (Manual) Monocytes # (Manual) ABG pH POC ABG pO2 ABG pO2 ABG HCO3 ABG Base Excess ABG Hemoglobin Oxyhemoglobin Sodium Potassium Chloride Carbon Dioxide BUN Creatinine Glucose POC Glucose 113 H Calcium Phosphorus 5.60 H Magnesium Direct Bilirubin AST C-Reactive Protein Total Protein Albumin Prealbumin Urine Creatinine Urine Total Protein 10/15/19 10/15/19 04:32 05:30 WBC RBC Hgb Hct RDW Plt Count Seg Neuts % (Manual) Lymphocytes % (Manual) Seg Neutrophils # Man Lymphocytes # (Manual) Monocytes # (Manual) ABG pH 7.296 L POC ABG pO2 ABG pO2 114.7 H ABG HCO3 ABG Base Excess -3.7 L ABG Hemoglobin 8.9 L Oxyhemoglobin Sodium 147 H Potassium Chloride 114.0 H Carbon Dioxide 19 L BUN 42 H Creatinine Glucose 112 H POC Glucose Calcium 7.3 L Phosphorus Magnesium Direct Bilirubin AST 72 H C-Reactive Protein 30.60 H Total Protein 4.0 L D Albumin 1.7 L Prealbumin 0.030 L Urine Creatinine Urine Total Protein
[2019-10-15] MEDS ORDERED: LACTATED RINGERS 500 ML IV SCH (11:00)
--- NOTE | 2019-10-15 11:54 | Progress Note ---
Assessment and Plan Cultures 10/10/2019 surgical culture: No growth at 72 hours 10/13/2019 tracheal aspirate culture: No growth 10/13/2019 peritoneal fluid: Enterococcus species Assessment: 54 yo M PMhx CAD, COPD, recent complicated course of bowel perforation after a colonoscopy admitted with surgical site dehiscence of the fascia. Now with possibly infected fluid culture: 1. Acute sepsis - present with leukocytosis and tachycardia. Most likely secondary to fluid collection/abscess in the abdomen. 2. Post-surgical fluid collection - s/p ex lap with closure of abdominal wall and wound vac placement (10/05/2019); s/p Re-exploration, washout, transection of colon, Abthera placement - 10/13/2019. 3. COPD 4. Penicillin allergy - likely not a true allergy, reviewed EMR for previous exposure to PCNs, patient received several days of Zosyn in 2018 without issue. Recs: - discussed with pharmacy, we reviewed EMR for previous exposure to PCNs, patient received several days of Zosyn in 2018 without issue - given growth of Enterococcus, will d/c cefepime and metronidazole and start IV Zosyn 4.5 gm q6 hrs - continue fluconazole 400mg q24h - follow up final surgical cultures, WBC and clinical course Julianna Pineda MD, FACP [facility] ([facility] C: [phone] O: [phone] F: [phone] Subjective Date of service: 10/15/19 Principal diagnosis: acute renal failure Interval history: Low grade temp. Remains intubated, sedated. Urine output improving. Objective - Exam Narrative Exam: Physical Exam: Constitutional: sedated, intubated Head, Ears, Nose: Normocephalic, atraumatic. External ears, nose normal Eyes: Conjunctivae/corneas clear. No icterus. No ptosis. Neck: intubated Oral: intubated Cardiovascular: S1, S2 normal. Respiratory: Good air entry, clear to auscultation bilaterally GI: Midline abdominal VAC. bowel sounds + Musculoskeletal: anasarca + Skin: No rash or abscess Hem/Lymphatic: No palpable cervical or supraclavicular nodes. No lymphangitis Psych: no agitation Neurological: sedated, intubated, on vent - Constitutional Vitals: Vital Signs Temp Pulse Resp BP Pulse Ox 98.8 F 165 H 19 120/55 96 10/15/19 08:00 10/15/19 10:45 10/15/19 10:45 10/15/19 10:45 10/15/19 10:45 Temperature -Last 24 Hours Temperature 98.8 F Temperature 98.8 F Temperature 99.9 F Temperature 99.8 F Temperature 99.3 F - Labs CBC & Chem 7: 10/15/19 04:32 10/15/19 04:32 Labs: Abnormal lab results 10/14/19 10/15/19 10/15/19 Range/Units 23:46 04:32 04:32 WBC 15.5 H (4.5-11.0) K/mm3 RBC 2.89 L (3.65-5.03) M/mm3 Hgb 8.8 L (11.8-15.2) gm/dl Hct 27.3 L D (35.5-45.6) % RDW 16.6 H (13.2-15.2) % ABG pH (7.350-7.450) pH Units ABG pO2 (80.0-90.0) mm Hg ABG Base Excess (-2.0-3.0) mmol/L ABG Hemoglobin (14.0-18.0) gm/dl Sodium 147 H (137-145) mmol/L Chloride 114.0 H (98-107) mmol/L Carbon Dioxide 19 L (22-30) mmol/L BUN 42 H (9-20) mg/dL Glucose 112 H (75-100) mg/dL POC Glucose 113 H (70-105) Calcium 7.3 L (8.4-10.2) mg/dL AST 72 H (5-40) units/L C-Reactive Protein 30.60 H (0.00-1.30) mg/dL Total Protein 4.0 L D (6.3-8.2) g/dL Albumin 1.7 L (3.9-5) g/dL Prealbumin 0.030 L (0.200-0.400) g/L 10/15/19 Range/Units 05:30 WBC (4.5-11.0) K/mm3 RBC (3.65-5.03) M/mm3 Hgb (11.8-15.2) gm/dl Hct (35.5-45.6) % RDW (13.2-15.2) % ABG pH 7.296 L (7.350-7.450) pH Units ABG pO2 114.7 H (80.0-90.0) mm Hg ABG Base Excess -3.7 L (-2.0-3.0) mmol/L ABG Hemoglobin 8.9 L (14.0-18.0) gm/dl Sodium (137-145) mmol/L Chloride (98-107) mmol/L Carbon Dioxide (22-30) mmol/L BUN (9-20) mg/dL Glucose (75-100) mg/dL POC Glucose (70-105) Calcium (8.4-10.2) mg/dL AST (5-40) units/L C-Reactive Protein (0.00-1.30) mg/dL Total Protein (6.3-8.2) g/dL Albumin (3.9-5) g/dL Prealbumin (0.200-0.400) g/L
[2019-10-15] MEDS ORDERED: ADENOSINE 6 MG/2 ML INJ IV ONE (12:00)
--- NOTE | 2019-10-15 12:32 | Progress Note ---
Assessment and Plan Acute Renal Failure likely secondary to ischemic ATN due to Sepsis, hypotension - improved Cr, good UOP - SPEP and UPEP pending - No hydronephrosis on CT - Monitor I/O's - Whitfield Catheter: Yes Dehiscence of closure of fascia, superficial or muscular Abdominal Pain -S/p multiple abdominal surgeries -S/p CT guided placement of a 8 Fr APD drain in the RUQ and RLQ by IR 10/10/19 -Gen surgeon on board, s/p surgery on 10/13/19 with re-opening of laparotomy, abdominal washout, colon stapled transection, and Abthera Placement Hx Hypertension, now hypotensive Hx of CAD/TX: Tachycardia: - Cardiology on board, start IV fluids, off esmolol drip for now given hypotension, f/u recs - Adjust regimen as needed Tylor matta MD [phone] Subjective Date of service: 10/15/19 Principal diagnosis: acute renal failure Interval history: sedated and intubated, no family at bedside. Objective - Vital Signs Vital signs: Vital Signs - 12hr 10/15/19 10/15/19 10/15/19 00:45 01:00 01:05 Temperature Pulse Rate 160 H 160 H 159 H Pulse Rate [ From Monitor] Respiratory 17 19 Rate Blood Pressure 118/54 119/54 119/54 O2 Sat by Pulse 98 98 98 Oximetry 10/15/19 10/15/19 10/15/19 01:15 01:30 01:45 Temperature Pulse Rate 160 H 162 H 161 H Pulse Rate [ From Monitor] Respiratory 19 19 18 Rate Blood Pressure 125/58 125/58 123/56 O2 Sat by Pulse 98 98 98 Oximetry 10/15/19 10/15/19 10/15/19 02:00 02:15 02:30 Temperature Pulse Rate 161 H 162 H 163 H Pulse Rate [ 162 H From Monitor] Respiratory 19 19 18 Rate Blood Pressure 134/66 132/63 122/58 O2 Sat by Pulse 99 98 98 Oximetry 10/15/19 10/15/19 10/15/19 02:45 03:00 03:15 Temperature Pulse Rate 163 H 161 H 162 H Pulse Rate [ From Monitor] Respiratory 20 29 H 14 Rate Blood Pressure 125/59 125/59 136/62 O2 Sat by Pulse 98 98 98 Oximetry 10/15/19 10/15/19 10/15/19 03:30 03:45 04:00 Temperature 98.8 F Pulse Rate 158 H 158 H Pulse Rate [ 162 H From Monitor] Respiratory 18 18 Rate Blood Pressure 136/62 119/55 125/53 O2 Sat by Pulse 98 98 98 Oximetry 10/15/19 10/15/19 10/15/19 04:15 04:30 04:45 Temperature Pulse Rate 159 H 156 H 158 H Pulse Rate [ From Monitor] Respiratory 20 19 17 Rate Blood Pressure 104/52 106/54 110/54 O2 Sat by Pulse 99 99 99 Oximetry 10/15/19 10/15/19 10/15/19 05:00 05:15 05:30 Temperature Pulse Rate 156 H 156 H 155 H Pulse Rate [ From Monitor] Respiratory 18 18 17 Rate Blood Pressure 108/53 109/56 113/55 O2 Sat by Pulse 99 99 98 Oximetry 10/15/19 10/15/19 10/15/19 05:31 05:45 06:00 Temperature Pulse Rate 158 H 157 H 157 H Pulse Rate [ From Monitor] Respiratory 20 19 Rate Blood Pressure 113/55 118/57 117/51 O2 Sat by Pulse 98 98 99 Oximetry 10/15/19 10/15/19 10/15/19 06:03 06:15 06:30 Temperature Pulse Rate 157 H 159 H 159 H Pulse Rate [ From Monitor] Respiratory 19 16 Rate Blood Pressure 117/51 118/55 112/55 O2 Sat by Pulse 98 98 Oximetry 10/15/19 10/15/19 10/15/19 06:45 07:00 07:15 Temperature Pulse Rate 160 H 160 H 160 H Pulse Rate [ From Monitor] Respiratory 18 15 18 Rate Blood Pressure 112/51 112/51 107/51 O2 Sat by Pulse 99 99 99 Oximetry 10/15/19 10/15/19 10/15/19 07:18 07:30 07:45 Temperature Pulse Rate 162 H 161 H 159 H Pulse Rate [ From Monitor] Respiratory 17 14 Rate Blood Pressure 107/51 116/50 117/55 O2 Sat by Pulse 96 97 97 Oximetry 10/15/19 10/15/19 10/15/19 08:00 08:15 08:30 Temperature 98.8 F Pulse Rate 160 H 160 H 162 H Pulse Rate [ 160 H From Monitor] Respiratory 19 18 19 Rate Blood Pressure 113/55 121/54 119/58 O2 Sat by Pulse 97 97 97 Oximetry 10/15/19 10/15/19 10/15/19 08:45 09:00 09:15 Temperature Pulse Rate 160 H 162 H 162 H Pulse Rate [ From Monitor] Respiratory 18 18 19 Rate Blood Pressure 121/59 118/55 120/56 O2 Sat by Pulse 97 97 97 Oximetry 10/15/19 10/15/19 10/15/19 09:30 09:45 10:00 Temperature Pulse Rate 164 H 164 H 167 H Pulse Rate [ From Monitor] Respiratory 23 21 19 Rate Blood Pressure 113/65 118/58 114/60 O2 Sat by Pulse 96 96 95 Oximetry 10/15/19 10/15/19 10/15/19 10:15 10:30 10:45 Temperature Pulse Rate 165 H 165 H 165 H Pulse Rate [ From Monitor] Respiratory 19 19 Rate Blood Pressure 115/48 119/50 120/55 O2 Sat by Pulse 96 96 96 Oximetry - General Appearance General appearance: well-developed, well-nourished, obese, sedated on ventilator EENT: ATNC, mucous membranes dry Neck: no JVD, no carotid bruit Respiratory: Present: Clear to Ascultation Cardiology: tachycardia Gastrointestinal: normoactive bowel sounds, no tenderness, no distended, obese Integumentary: no rash, warm and dry, other Neurologic: other (sedated and intubated) Musculoskeletal: other (trace pitting edema in BLE) Psychiatric: other (sedated) - Lab 10/15/19 04:32 10/15/19 04:32 Most recent lab results ABG pH 7.296 pH Units (7.350-7.450) L 10/15/19 05:30 ABG pCO2 47.7 mm Hg 10/15/19 05:30 ABG pO2 114.7 mm Hg (80.0-90.0) H 10/15/19 05:30 ABG HCO3 22.7 mmol/L (20.0-26.0) 10/15/19 05:30 ABG O2 Saturation 97.8 % (95.0-99.0) 10/15/19 05:30 Calcium 7.3 mg/dL (8.4-10.2) L 10/15/19 04:32 Phosphorus 3.60 mg/dL (2.5-4.5) D 10/15/19 04:32 Magnesium 2.10 mg/dL (1.7-2.3) 10/15/19 04:32 Urine Creatinine 116.8 mg/dL (0.1-20.0) H 10/11/19 06:23 Urine Creatinine 118.2 mg/dL (0.1-20.0) H 10/11/19 06:23 Urine Sodium 14 mmol/L 10/11/19 06:23 Urine Total Protein 104 mg/dL (5-11.8) H 10/11/19 06:23 Urine Total Protein 105 mg/dL (5-11.8) H 10/11/19 06:23 Medications & Allergies - Medications Allergies/Adverse Reactions: Allergies Sulfa (Sulfonamide Antibiotics) Allergy (Severe, Verified 03/22/16 18:34) Rash oxytetracycline [From Terramycin] Allergy (Verified 03/22/16 10:32) Unknown oxytetracycline HCl [From Terramycin] Allergy (Verified 03/22/16 10:32) Unknown Penicillins Adverse Reaction (Severe, Verified 03/22/16 18:34) Shortness of Breath Home Medications: Home Medications Medication Instructions Recorded Confirmed Last Taken Type ALBUTEROL Inhaler (OR & NICU) 2 puff IH QID PRN #1 inhalation 08/17/18 10/06/19 Unknown Rx [ProAir HFA Inhaler] Arformoterol Nebu [Brovana Nebu] 15 mcg IH Q12HRT ml 08/17/18 10/06/19 10/05/19 Rx Benzonatate [Tessalon Perles] 100 mg PO Q8HR capsule 08/17/18 10/06/19 10/03/19 21:00 Rx Citalopram [Celexa] 20 mg PO QDAY #30 tablet 08/17/18 10/06/19 10/04/19 Rx Ipratropium/Albuterol Sulfate 1 ampul IH Q6HRT #30 ampul.neb 08/17/18 10/06/19 10/05/19 21:00 Rx [DUONEB *Not for PRN Use*] Lisinopril [Zestril TAB] 20 mg PO DAILY #30 tablet 08/17/18 10/06/19 10/05/19 08:00 Rx Metoprolol [Lopressor TAB] 100 mg PO BID #60 tablet 08/17/18 10/06/19 10/05/19 08:00 Rx Pravastatin [Pravachol] 40 mg PO QHS #30 tablet 08/17/18 10/06/19 10/04/19 22:00 Rx Symbicort 160-4.5 Mcg Inhaler 1 puff INHALATION BID #30 08/17/18 10/06/19 09/05/19 23:00 Rx Acetaminophen [Acetaminophen TAB] 2 tab PO Q4H PRN #30 tablet 10/03/19 10/06/19 Unknown Rx Bisacodyl [Dulcolax suppos] 10 mg SD QDAY PRN #4 supp.rect 10/03/19 10/06/19 Un known Rx Pantoprazole [Protonix TAB] 40 mg PO BID #60 tablet 10/03/19 10/06/19 10/04/19 21:00 Rx Sucralfate [Carafate] 1 gm PO Q6HR 30 Days oral.liqd 10/03/19 10/06/19 10/05/19 08:00 Rx levoFLOXacin [Levaquin TAB] 750 mg PO QDAY #2 tablet 10/03/19 10/06/19 10/04/19 08:00 Rx oxyCODONE /ACETAMINOPHEN [Percocet 1 tab PO Q4H PRN #26 tablet 10/03/19 10/06/19 10/04/19 21:00 Rx 5/325 mg] Active Medications: Generic Name Dose Route Start Last Admin Trade Name Freq PRN Reason Stop Dose Admin Acetaminophen 650 mg 10/15/19 10:00 Tylenol SD Q4H PRN Pain MILD(1-3)/Fever >100.5/ROMANO Albuterol 2.5 mg 10/05/19 21:36 Proventil IH Q4HRT PRN Shortness Of Breath Albuterol/Ipratropium 1 ampul 10/06/19 02:00 10/15/19 07:23 Duoneb *Not For Prn Use* IH Not Given Q6HRT VERÓNICA Arformoterol Tartrate 15 mcg 10/06/19 08:30 10/15/19 07:23 Brovana Nebu IH Not Given Q12HRT VERÓNICA Budesonide 0.5 mg 10/07/19 12:20 10/15/19 07:23 Pulmicort IH Not Given Q12HRT VERÓNICA Fentanyl 50 mcg 10/14/19 02:19 Sublimaze IV Q10MIN PRN ANALGESIA Hydromorphone HCl 0.5 mg 10/05/19 21:22 10/13/19 06:59 Dilaudid IV 0.5 mg Q3H PRN Administration Pain , Severe (7-10) Fluconazole 200 mls @ 100 mls/hr 10/12/19 11:00 10/15/19 10:39 Diflucan IV 100 mls/hr Q24HR VERÓNICA Administration Protocol Lorazepam 100 mg/ Sodium 100 mls @ 1 mls/hr 10/13/19 22:00 10/15/19 10:40 Chloride/ Miscellaneous IV 1 mg/hr Information TITR VERÓNICA 1 mls/hr Titration Protocol 1 MG/HR Fentanyl Citrate 2,000 mcg in 100 mls @ 6.85 mls/hr 10/14/19 03:00 10/15/19 02:08 Fentanyl Drip Premix IV 1 mcg/kg/hr TITR VERÓNICA 6.85 mls/hr Titration Protocol 1 MCG/KG/HR Esmolol HCl 2.5 gm in 250 mls @ 41.1 mls/hr 10/14/19 09:00 10/14/19 10:30 Brevibloc Drip 2.5gm/250ml IV 0 mcg/kg/min TITR VERÓNICA 0 mls/hr Titration Protocol 50 MCG/KG/MIN Amino Acids/Electrolytes/Dextrose 2,016 mls @ 84 mls/hr 10/14/19 20:00 10/14/19 20:26 Tpn Adult IV 10/15/19 19:59 84 mls/hr DAILY@2000 VERÓNICA Administration Protocol Lactated Ringer's 1,000 mls @ 999 mls/hr 10/15/19 10:00 Lactated Ringers IV 10/18/19 11:01 DIRECT VERÓNICA Lactated Ringer's 500 mls @ 999 mls/hr 10/15/19 11:00 Lactated Ringers IV DIRECT VERÓNICA Lactated Ringer's 1,000 mls @ 250 mls/hr 10/15/19 11:00 Lactated Ringers IV DIRECT VERÓNICA Piperacillin Sod/Tazobactam Sod 4.5 gm in 100 mls @ 200 mls/hr 10/15/19 13:00 Zosyn/Ns 4.5gm/100ml IV Q6HR [facility] Protocol Insulin Human Lispro 0 unit 10/14/19 12:00 10/15/19 06:05 Humalog SUB-Q Not Given Q6HR [facility] Protocol Lorazepam 2 mg 10/13/19 21:22 Ativan IV Q10MIN PRN Agitation Multi-Ingred Cream/Lotion/Oil/Oint 1 applic 10/14/19 02:19 Artificial Tears Ophth Oint OU Q4HR PRN Dry Eye(s) Ondansetron HCl 4 mg 10/05/19 21:22 10/11/19 18:20 Zofran IV 4 mg Q3H PRN Administration Nausea And Vomiting Pantoprazole Sodium 40 mg 10/15/19 10:00 10/15/19 10:39 Protonix IV 40 mg QDAY VERÓNICA Administration Sodium Chloride 10 ml 10/05/19 22:00 10/15/19 10:39 Sodium Chloride Flush Syringe 10 Ml IV 10 ml BID VERÓNICA Administration Sodium Chloride 10 ml 10/05/19 21:22 Sodium Chloride Flush Syringe 10 Ml IV PRN PRN LINE FLUSH
[2019-10-15] MEDS: LACTATED RINGERS 1,000 ML IV SCH ×6 (12:34→22:06)
[2019-10-15] MEDS: PIPERACIL/TAZOBACTA 4.5/NS 100 4.5 GM/100 ML VIAL IV SCH ×2 (14:26→17:03)
--- NOTE | 2019-10-15 14:39 | Progress Note ---
Assessment and Plan Sepsis Severe abdominal pain s/p exploratory laparotomy, abdominal washout, closure of abdominal fascia with wound vac placement. Rapid atrial fibrillation/flutter treated with adenosine x1 Recent colon resection for bowel perforation following a colonoscopy Atypical chest pain chest CT reports left lower lobe pleural effusion with suspected left upper lobe pneumonia. troponins are normal Hx of OR/CAD PCI of the circumflex and second vessel POBA of the distal LAD occlusion. Left ventricle fraction 45-50%. Tobacco abuse COPD Hypertension Hyperlipidemia Recommendations: Intravenous amiodarone and digoxin for suppression of atrial fib/flutter. We will add IV lopressor for as needed use. Subjective Date of service: 10/15/19 Principal diagnosis: acute renal failure Interval history: Patient is intubated on the vent. Rapid atrial rhythm on telemetry treated with adenosine x 1. Objective Vital Signs Temp Pulse Pulse Pulse Resp Resp BP 10/15/19 12:45 154 H 17 119/53 10/15/19 12:30 156 H 20 119/57 10/15/19 12:15 159 H 17 111/54 10/15/19 12:00 100.6 F H 165 H 165 H 20 116/55 10/15/19 11:45 165 H 22 116/51 10/15/19 11:30 156 H 23 123/56 10/15/19 11:15 166 H 19 115/52 10/15/19 11:00 166 H 20 116/53 10/15/19 10:45 165 H 19 120/55 10/15/19 10:30 165 H 19 119/50 10/15/19 10:15 165 H 19 115/48 10/15/19 10:00 167 H 19 114/60 10/15/19 09:45 164 H 21 118/58 10/15/19 09:30 164 H 23 113/65 10/15/19 09:15 162 H 19 120/56 10/15/19 09:00 162 H 18 118/55 10/15/19 08:45 160 H 18 121/59 10/15/19 08:30 162 H 19 119/58 10/15/19 08:15 160 H 18 121/54 10/15/19 08:00 98.8 F 160 H 160 H 19 113/55 10/15/19 07:45 159 H 14 117/55 10/15/19 07:30 161 H 17 116/50 10/15/19 07:18 162 H 107/51 10/15/19 07:15 160 H 18 107/51 10/15/19 07:00 160 H 15 112/51 10/15/19 06:45 160 H 18 112/51 10/15/19 06:30 159 H 16 112/55 10/15/19 06:15 159 H 19 118/55 10/15/19 06:03 157 H 117/51 10/15/19 06:00 157 H 19 117/51 10/15/19 05:45 157 H 20 118/57 10/15/19 05:31 158 H 113/55 10/15/19 05:30 155 H 17 113/55 10/15/19 05:15 156 H 18 109/56 10/15/19 05:00 156 H 18 108/53 10/15/19 04:45 158 H 17 110/54 10/15/19 04:30 156 H 19 106/54 10/15/19 04:15 159 H 20 104/52 10/15/19 04:00 98.8 F 158 H 162 H 18 125/53 10/15/19 03:45 158 H 18 119/55 10/15/19 03:30 136/62 10/15/19 03:15 162 H 14 136/62 10/15/19 03:00 161 H 29 H 125/59 10/15/19 02:45 163 H 20 125/59 10/15/19 02:30 163 H 18 122/58 10/15/19 02:15 162 H 19 132/63 10/15/19 02:00 161 H 162 H 19 134/66 10/15/19 01:45 161 H 18 123/56 10/15/19 01:30 162 H 19 125/58 10/15/19 01:15 160 H 19 125/58 10/15/19 01:05 159 H 119/54 10/15/19 01:00 160 H 19 119/54 10/15/19 00:45 160 H 17 118/54 10/15/19 00:30 161 H 18 120/53 10/15/19 00:15 158 H 21 125/60 10/15/19 00:00 99.9 F H 157 H 20 122/63 10/14/19 23:45 160 H 19 113/58 10/14/19 23:42 160 H 113/55 10/14/19 23:31 160 H 19 113/55 10/14/19 23:30 160 H 18 113/55 10/14/19 23:18 159 H 19 104/51 10/14/19 23:15 160 H 20 116/54 10/14/19 23:00 159 H 19 109/58 10/14/19 22:45 158 H 19 114/54 10/14/19 22:30 158 H 20 107/55 10/14/19 22:15 159 H 19 104/51 10/14/19 22:00 158 H 120 H 21 105/51 10/14/19 21:45 157 H 19 116/57 10/14/19 21:44 155 H 105/54 10/14/19 21:42 158 H 19 10/14/19 21:30 156 H 27 H 113/66 10/14/19 21:15 156 H 23 112/55 10/14/19 21:00 99.8 F H 154 H 24 110/65 10/14/19 20:45 154 H 20 103/58 10/14/19 20:30 155 H 20 105/54 10/14/19 20:15 156 H 20 113/50 10/14/19 20:00 155 H 155 H 20 105/54 10/14/19 19:45 155 H 21 102/51 10/14/19 19:30 155 H 20 104/50 10/14/19 19:15 155 H 21 103/50 10/14/19 19:00 154 H 20 94/50 10/14/19 18:45 154 H 19 103/49 10/14/19 18:30 153 H 19 98/48 10/14/19 18:15 153 H 21 101/48 10/14/19 18:13 153 H 99/53 10/14/19 18:00 152 H 22 99/53 10/14/19 17:45 152 H 20 99/48 10/14/19 17:30 151 H 21 97/49 10/14/19 17:15 151 H 21 95/49 10/14/19 17:04 151 H 93/46 10/14/19 17:00 152 H 20 93/46 10/14/19 16:45 150 H 21 96/47 10/14/19 16:30 150 H 22 86/46 10/14/19 16:19 99.3 F 10/14/19 16:15 149 H 20 87/48 10/14/19 16:00 150 H 151 H 24 93/48 10/14/19 15:45 151 H 23 104/52 10/14/19 15:30 153 H 22 91/46 10/14/19 15:15 153 H 20 84/49 10/14/19 15:00 153 H 22 95/53 10/14/19 14:58 153 H 94/48 10/14/19 14:45 153 H 24 94/48 Pulse Ox 10/15/19 12:45 97 10/15/19 12:30 97 10/15/19 12:15 97 10/15/19 12:00 96 10/15/19 11:45 96 10/15/19 11:30 96 10/15/19 11:15 96 10/15/19 11:00 96 10/15/19 10:45 96 10/15/19 10:30 96 10/15/19 10:15 96 10/15/19 10:00 95 10/15/19 09:45 96 10/15/19 09:30 96 10/15/19 09:15 97 10/15/19 09:00 97 10/15/19 08:45 97 10/15/19 08:30 97 10/15/19 08:15 97 10/15/19 08:00 97 10/15/19 07:45 97 10/15/19 07:30 97 10/15/19 07:18 96 10/15/19 07:15 99 10/15/19 07:00 99 10/15/19 06:45 99 10/15/19 06:30 98 10/15/19 06:15 98 10/15/19 06:03 10/15/19 06:00 99 10/15/19 05:45 98 10/15/19 05:31 98 10/15/19 05:30 98 10/15/19 05:15 99 10/15/19 05:00 99 10/15/19 04:45 99 10/15/19 04:30 99 10/15/19 04:15 99 10/15/19 04:00 98 10/15/19 03:45 98 10/15/19 03:30 98 10/15/19 03:15 98 10/15/19 03:00 98 10/15/19 02:45 98 10/15/19 02:30 98 10/15/19 02:15 98 10/15/19 02:00 99 10/15/19 01:45 98 10/15/19 01:30 98 10/15/19 01:15 98 10/15/19 01:05 98 10/15/19 01:00 98 10/15/19 00:45 98 10/15/19 00:30 98 10/15/19 00:15 98 10/15/19 00:00 98 10/14/19 23:45 98 10/14/19 23:42 10/14/19 23:31 99 10/14/19 23:30 98 10/14/19 23:18 98 10/14/19 23:15 99 10/14/19 23:00 98 10/14/19 22:45 98 10/14/19 22:30 98 10/14/19 22:15 98 10/14/19 22:00 96 10/14/19 21:45 99 10/14/19 21:44 98 10/14/19 21:42 10/14/19 21:30 97 10/14/19 21:15 98 10/14/19 21:00 98 10/14/19 20:45 98 10/14/19 20:30 98 10/14/19 20:15 98 10/14/19 20:00 98 10/14/19 19:45 98 10/14/19 19:30 98 10/14/19 19:15 97 10/14/19 19:00 97 10/14/19 18:45 97 10/14/19 18:30 97 10/14/19 18:15 97 10/14/19 18:13 97 10/14/19 18:00 97 10/14/19 17:45 97 10/14/19 17:30 97 10/14/19 17:15 97 10/14/19 17:04 10/14/19 17:00 97 10/14/19 16:45 97 10/14/19 16:30 97 10/14/19 16:19 10/14/19 16:15 96 10/14/19 16:00 97 10/14/19 15:45 97 10/14/19 15:30 96 10/14/19 15:15 96 10/14/19 15:00 96 10/14/19 14:58 96 10/14/19 14:45 96 - Physical Examination General: Other (intubated) Cardiac: Positive: irregularly irregular Abdomen: Positive: Other (abdominal wound vac is in place) - Labs and Meds Cardiac Enzymes 10/15/19 Range/Units 04:32 AST 72 H (5-40) units/L Lipids 10/15/19 Range/Units 04:32 Triglycerides 114 (2-149) mg/dL CBC 10/15/19 Range/Units 04:32 WBC 15.5 H (4.5-11.0) K/mm3 RBC 2.89 L (3.65-5.03) M/mm3 Hgb 8.8 L (11.8-15.2) gm/dl Hct 27.3 L D (35.5-45.6) % Plt Count 290 (140-440) K/mm3 Comprehensive Metabolic Panel 10/15/19 Range/Units 04:32 Sodium 147 H (137-145) mmol/L Potassium 4.3 (3.6-5.0) mmol/L Chloride 114.0 H (98-107) mmol/L Carbon Dioxide 19 L (22-30) mmol/L BUN 42 H (9-20) mg/dL Creatinine 1.2 (0.8-1.5) mg/dL Glucose 112 H (75-100) mg/dL Calcium 7.3 L (8.4-10.2) mg/dL AST 72 H (5-40) units/L ALT 31 (7-56) units/L Alkaline Phosphatase 68 (35-129) units/L Total Protein 4.0 L D (6.3-8.2) g/dL Albumin 1.7 L (3.9-5) g/dL
[2019-10-15] MEDS ORDERED: AMIODARONE 300 MG in DEXTROSE 5% IN WATER 100 ML IV ONE (15:30)
[2019-10-15] MEDS: AMIODARONE 900 MG in DEXTROSE 5% IN WATER 482 ML IV SCH (16:11)
[2019-10-15] MEDS: ACETAMINOPHEN 650 MG RECT SUPP PR PRN (17:04)
--- NOTE | 2019-10-15 19:02 | Progress Note ---
Assessment and Plan Assessment and plan: 54 yo male with hx of CAD, MO, emphysema, COPD who presents with prolonged complicated course as a result of a bowel perforation. He has had 3 surgeries over the course of the past 10 days. On admission, after coughing a portion of his intestines protruded through the wound. He has severe 8/10 pain with cough and movement. No vomiting. No fever. * Went to OR for ex lap with closure of abdominal wall and wound vac placement (10/05) * Continued to decline with possible Air vs fluid, 10/10/19 IR went in and placed two drains, Noted to have possible fecal material * Patient continued to have Tachycardia and with Altred sensorium, Started on CIWA protocol due to hx of ETOH abuse, 6pack a day * Renal failure improved, milds, Cardiology, Pulmonary, Nephrology and ID consulted, Patient placed on Emperic abx due to concern of pulmonary consolidation * Returned to the OR 10/13/19 due to concern for intra-abdominal infection and was found to have with heavy contamination of abdomen patent had disruption of bowel anastomosis, abdominal washout, abthera placement and colon stapled transection and left bowel enterotomy from anastomosis completely open Dehiscence of closure of fascia Sepsis secondary to Bowel leak at anastemosis site GUILLERMO on CKD secondary to ATN Severe Metabolic acidosis improving Acute Toxic Metabolic Encephalopathy Hyperkalemia Acute Blood loss anemia- Excepted Severe Sepsis Morbid obesity Moderate Protein calorie malnutrition secondary to surgery GUILLERMO on CKD secondary to ATN Hypotension Pneumonia,presumed GNR Sinus Tachycardia Delirium Tremens Acute Respiratory failure on full ventilatory support Hyperlpidemia HTN Atypical chest pain- secondary to penumonitis Atlectasis- expected PLan Continue supportive care, continue on Vent- NO Weaning planned for now Discussed with Surgeon and Crime Scene Specialist TPN Increase fluid rate Aggressive fluid resuscitation Hold lasix Continue NEBS Pulmonary toliet and VAP bundle Replace Electrolytes Plan to return to OR on Tuesday Discussed with spouse at bedside. Pressure ulcer prevention techniques Wound care consult Abx per ID PT/OT when able AM LABS DVT/GI PROPHY Discussed with Surgery. The high probability of a clinically significant, sudden or life threatening deterioration of the [pulmonary, abdominal] system(s) required my full and direct attention, intervention and personal management. The aggregate critical care time was [45] minutes. This time is in addition to time spent performing reported procedures but includes the following: [x] Data Review and interpretation [x] Patient assessment and monitoring of vital signs [x] Documentation [x] Medication orders and management History Interval history: Patient seen and examined, Remains intubated, post surgery 10/13/19, Still sedated, discussed with spouse at bedside, HR control still an issue Hospitalist Physical - Physical exam Narrative exam: Narrative exam: General appearance: sedated, on Full MVS, well-nourished - EENT Eyes: Present: PERRL, ETT in place ENT: hearing intact, clear oral mucosa, dentition normal - Neck Neck: Present: supple, normal ROM - Respiratory: good air entry on full ventilatory support - Cardiovascular Rhythm: irregularly irregular, tachycardia Heart Sounds: Present: S1 & S2 - Extremities Extremities: no ischemia, pulses intact, pulses symmetrical, +2 edema, normal temperature, normal color Extremity abnormal: erythema, generalized anasacar - Abdominal: Midline incision in abdomen-woundvac in place, Wound vac in with increased output General gastrointestinal: soft, Hypoactive - Integumentary Integumentary: Present: clear, warm, - Psychiatric Psychiatric: sedated - Neurologic Neurologic: sedated - Constitutional Vitals: Temp Pulse Resp BP Pulse Ox 100.6 F H 120 H 19 117/57 98 10/15/19 12:00 10/15/19 18:46 10/15/19 18:46 10/15/19 18:46 10/15/19 18:46 General appearance: Present: no acute distress Results - Labs CBC & Chem 7: 10/15/19 04:32 10/15/19 04:32 Labs: Laboratory Last Values WBC 15.5 K/mm3 (4.5-11.0) H 10/15/19 04:32 RBC 2.89 M/mm3 (3.65-5.03) L 10/15/19 04:32 Hgb 8.8 gm/dl (11.8-15.2) L 10/15/19 04:32 Hct 27.3 % (35.5-45.6) L D 10/15/19 04:32 MCV 94 fl (84-94) 10/15/19 04:32 MCH 30 pg (28-32) 10/15/19 04:32 MCHC 32 % (32-34) 10/15/19 04:32 RDW 16.6 % (13.2-15.2) H 10/15/19 04:32 Plt Count 290 K/mm3 (140-440) 10/15/19 04:32 Add Manual Diff Complete 10/09/19 10:52 Total Counted 100 10/09/19 10:52 Seg Neutrophils % Bucket Pusher 10/09/19 10:52 Seg Neuts % (Manual) 93.0 % (40.0-70.0) H 10/09/19 10:52 Band Neutrophils % 1.0 % 10/09/19 10:52 Lymphocytes % (Manual) 5.0 % (13.4-35.0) L 10/09/19 10:52 Reactive Lymphs % (Man) 0 % 10/09/19 10:52 Monocytes % (Manual) 1.0 % (0.0-7.3) 10/09/19 10:52 Eosinophils % (Manual) 0 % (0.0-4.3) 10/09/19 10:52 Basophils % (Manual) 0 % (0.0-1.8) 10/09/19 10:52 Metamyelocytes % 0 % 10/09/19 10:52 Myelocytes % 0 % 10/09/19 10:52 Promyelocytes % 0 % 10/09/19 10:52 Blast Cells % 0 % 10/09/19 10:52 Nucleated RBC % Not Reportable 10/09/19 10:52 Seg Neutrophils # Man 15.4 K/mm3 (1.8-7.7) H 10/09/19 10:52 Band Neutrophils # 0.2 K/mm3 10/09/19 10:52 Lymphocytes # (Manual) 0.8 K/mm3 (1.2-5.4) L 10/09/19 10:52 Abs React Lymphs (Man) 0.0 K/mm3 10/09/19 10:52 Monocytes # (Manual) 0.2 K/mm3 (0.0-0.8) 10/09/19 10:52 Eosinophils # (Manual) 0.0 K/mm3 (0.0-0.4) 10/09/19 10:52 Basophils # (Manual) 0.0 K/mm3 (0.0-0.1) 10/09/19 10:52 Metamyelocytes # 0.0 K/mm3 10/09/19 10:52 Myelocytes # 0.0 K/mm3 10/09/19 10:52 Promyelocytes # 0.0 K/mm3 10/09/19 10:52 Blast Cells # 0.0 K/mm3 10/09/19 10:52 WBC Morphology Not Reportable 10/09/19 10:52 Hypersegmented Neuts Not Reportable 10/09/19 10:52 Hyposegmented Neuts Not Reportable 10/09/19 10:52 Hypogranular Neuts Not Reportable 10/09/19 10:52 Smudge Cells Not Reportable 10/09/19 10:52 Toxic Granulation Not Reportable 10/09/19 10:52 Toxic Vacuolation Not Reportable 10/09/19 10:52 Dohle Bodies Not Reportable 10/09/19 10:52 Pelger-Huet Anomaly Not Reportable 10/09/19 10:52 Andres Rods Not Reportable 10/09/19 10:52 Platelet Estimate Consistent w auto 10/09/19 10:52 Clumped Platelets Not Reportable 10/09/19 10:52 Plt Clumps, EDTA Not Reportable 10/09/19 10:52 Large Platelets Rare 10/09/19 10:52 Giant Platelets Not Reportable 10/09/19 10:52 Platelet Satelliting Not Reportable 10/09/19 10:52 Plt Morphology Comment Not Reportable 10/09/19 10:52 RBC Morphology Normal 10/09/19 10:52 Dimorphic RBCs Not Reportable 10/09/19 10:52 Polychromasia Not Reportable 10/09/19 10:52 Hypochromasia Not Reportable 10/09/19 10:52 Poikilocytosis Not Reportable 10/09/19 10:52 Anisocytosis Not Reportable 10/09/19 10:52 Microcytosis Not Reportable 10/09/19 10:52 Macrocytosis Not Reportable 10/09/19 10:52 Spherocytes Not Reportable 10/09/19 10:52 Pappenheimer Bodies Not Reportable 10/09/19 10:52 Sickle Cells Not Reportable 10/09/19 10:52 Target Cells Not Reportable 10/09/19 10:52 Tear Drop Cells Not Reportable 10/09/19 10:52 Ovalocytes Not Reportable 10/09/19 10:52 Helmet Cells Not Reportable 10/09/19 10:52 [place] Bodies Not Reportable 10/09/19 10:52 [place] Rings Not Reportable 10/09/19 10:52 Bishnu Cells Not Reportable 10/09/19 10:52 Bite Cells Not Reportable 10/09/19 10:52 Crenated Cell Not Reportable 10/09/19 10:52 Elliptocytes Not Reportable 10/09/19 10:52 Acanthocytes (Spur) Not Reportable 10/09/19 10:52 Rouleaux Not Reportable 10/09/19 10:52 Hemoglobin C Crystals Not Reportable 10/09/19 10:52 Schistocytes Not Reportable 10/09/19 10:52 Malaria parasites Not Reportable 10/09/19 10:52 Toni Bodies Not Reportable 10/09/19 10:52 Hem Pathologist Commnt No 10/09/19 10:52 POC ABG pH 7.392 (7.35-7.45) 10/12/19 23:43 ABG pH 7.296 pH Units (7.350-7.450) L 10/15/19 05:30 POC ABG pCO2 43.4 (35-45) 10/12/19 23:43 ABG pCO2 47.7 mm Hg 10/15/19 05:30 POC ABG pO2 84 (80-105) 10/12/19 23:43 ABG pO2 114.7 mm Hg (80.0-90.0) H 10/15/19 05:30 POC ABG HCO3 26.4 (22-26 mml/L) 10/12/19 23:43 ABG HCO3 22.7 mmol/L (20.0-26.0) 10/15/19 05:30 POC ABG Total CO2 28 (23-27mmol/L) 10/12/19 23:43 POC ABG O2 Sat 96 10/12/19 23:43 ABG O2 Saturation 97.8 % (95.0-99.0) 10/15/19 05:30 ABG O2 Content 12.2 (0.0-44) 10/15/19 05:30 POC ABG Base Excess 2 ((-2) - (+3)mmol/L) 10/12/19 23:43 ABG Base Excess -3.7 mmol/L (-2.0-3.0) L 10/15/19 05:30 ABG Hemoglobin 8.9 gm/dl (14.0-18.0) L 10/15/19 05:30 ABG Carboxyhemoglobin 1.2 % (0.0-5.0) 10/15/19 05:30 ABG Methemoglobin 0.6 % (0.0-1.5) 10/15/19 05:30 Oxyhemoglobin 96.0 % (95.0-99.0) 10/15/19 05:30 FiO2 60 % 10/15/19 05:30 Sodium 147 mmol/L (137-145) H 10/15/19 04:32 Potassium 4.3 mmol/L (3.6-5.0) 10/15/19 04:32 Chloride 114.0 mmol/L (98-107) H 10/15/19 04:32 Carbon Dioxide 19 mmol/L (22-30) L 10/15/19 04:32 Anion Gap 18 mmol/L 10/15/19 04:32 BUN 42 mg/dL (9-20) H 10/15/19 04:32 Creatinine 1.2 mg/dL (0.8-1.5) 10/15/19 04:32 Estimated GFR > 60 ml/min 10/15/19 04:32 BUN/Creatinine Ratio 35 % 10/15/19 04:32 Glucose 112 mg/dL (75-100) H 10/15/19 04:32 POC Glucose 106 (70-105) H 10/15/19 17:23 Hemoglobin A1c 5.7 % (4-6) 10/06/19 05:36 Lactic Acid 1.10 mmol/L (0.7-2.0) 10/13/19 04:20 Calcium 7.3 mg/dL (8.4-10.2) L 10/15/19 04:32 Phosphorus 3.60 mg/dL (2.5-4.5) D 10/15/19 04:32 Magnesium 2.10 mg/dL (1.7-2.3) 10/15/19 04:32 Total Bilirubin 0.30 mg/dL (0.1-1.2) 10/15/19 04:32 Direct Bilirubin 0.3 mg/dL (0-0.2) H 10/12/19 09:30 Indirect Bilirubin 0.3 mg/dL 10/12/19 09:30 AST 72 units/L (5-40) H 10/15/19 04:32 ALT 31 units/L (7-56) 10/15/19 04:32 Alkaline Phosphatase 68 units/L (35-129) 10/15/19 04:32 Ammonia 49.0 umol/L (25-60) 10/13/19 04:20 Troponin T < 0.010 ng/mL (0.00-0.029) 10/09/19 17:23 C-Reactive Protein 30.60 mg/dL (0.00-1.30) H 10/15/19 04:32 Total Protein 4.0 g/dL (6.3-8.2) L D 10/15/19 04:32 Albumin 1.7 g/dL (3.9-5) L 10/15/19 04:32 Albumin/Globulin Ratio 0.7 % 10/15/19 04:32 Prealbumin 0.030 g/L (0.200-0.400) L 10/15/19 04:32 Triglycerides 114 mg/dL (2-149) 10/15/19 04:32 Urine Color [place] (Yellow) 10/11/19 06:23 Urine Turbidity Cloudy (Clear) 10/11/19 06:23 Urine pH 5.0 (5.0-7.0) 10/11/19 06:23 Ur Specific [place] 1.018 (1.003-1.030) 10/11/19 06:23 Urine Protein 30 mg/dl mg/dL (Negative) 10/11/19 06:23 Urine Glucose (UA) Neg mg/dL (Negative) 10/11/19 06:23 Urine Ketones Neg mg/dL (Negative) 10/11/19 06:23 Urine Blood Mod (Negative) 10/11/19 06:23 Urine Nitrite Neg (Negative) 10/11/19 06:23 Urine Bilirubin Neg (Negative) 10/11/19 06:23 Urine Urobilinogen < 2.0 mg/dL (<2.0) 10/11/19 06:23 Ur Leukocyte Esterase Neg (Negative) 10/11/19 06:23 Urine WBC (Auto) 3.0 /HPF (0.0-6.0) 10/11/19 06:23 Urine RBC (Auto) 3.0 /HPF (0.0-6.0) 10/11/19 06:23 Urine Bacteria (Auto) 1+ /HPF (Negative) 10/11/19 06:23 Urine Eosinophils None seen (None Seen) 10/11/19 06:23 Urine Creatinine 116.8 mg/dL (0.1-20.0) H 10/11/19 06:23 Urine Creatinine 118.2 mg/dL (0.1-20.0) H 10/11/19 06:23 Protein/Creatinin Ratio 0.89 10/11/19 06:23 Urine Sodium 14 mmol/L 10/11/19 06:23 Urine Total Protein 104 mg/dL (5-11.8) H 10/11/19 06:23 Urine Total Protein 105 mg/dL (5-11.8) H 10/11/19 06:23 Blood Type A POSITIVE 10/13/19 13:20 Antibody Screen Negative 10/13/19 13:20 Active Medications - Current Medications Current Medications: Generic Name Dose Route Start Last Admin Trade Name Freq PRN Reason Stop Dose Admin Acetaminophen 650 mg 10/15/19 10:00 Tylenol NC Q4H PRN Pain MILD(1-3)/Fever >100.5/ROMANO Albuterol 2.5 mg 10/05/19 21:36 Proventil IH Q4HRT PRN Shortness Of Breath Albuterol/Ipratropium 1 ampul 10/06/19 02:00 10/15/19 13:42 Duoneb *Not For Prn Use* IH Not Given Q6HRT [facility] Arformoterol Tartrate 15 mcg 10/06/19 08:30 10/15/19 07:23 Brovana Nebu IH Not Given Q12HRT VERÓNICA Budesonide 0.5 mg 10/07/19 12:20 10/15/19 07:23 Pulmicort IH Not Given Q12HRT VERÓNICA Digoxin 0.125 mg 10/15/19 17:00 10/15/19 16:19 Lanoxin IV 0.125 mg QDAY VERÓNICA Administration Enoxaparin Sodium 40 mg 10/15/19 22:00 Enoxaparin SUB-Q QDAY@2200 VERÓNICA Fentanyl 50 mcg 10/14/19 02:19 Sublimaze IV Q10MIN PRN ANALGESIA Hydromorphone HCl 0.5 mg 10/05/19 21:22 10/13/19 06:59 Dilaudid IV 0.5 mg Q3H PRN Administration Pain , Severe (7-10) Fluconazole 200 mls @ 100 mls/hr 10/12/19 11:00 10/15/19 10:39 Diflucan IV 100 mls/hr Q24HR VERÓNICA Administration Protocol Lorazepam 100 mg/ Sodium 100 mls @ 1 mls/hr 10/13/19 22:00 10/15/19 17:00 Chloride/ Miscellaneous IV 0.5 mg/hr Information TITR VERÓNICA 0.5 mls/hr Titration Protocol 1 MG/HR Fentanyl Citrate 2,000 mcg in 100 mls @ 6.85 mls/hr 10/14/19 03:00 10/15/19 17:06 Fentanyl Drip Premix IV 1 mcg/kg/hr TITR VERÓNICA 6.85 mls/hr Administration Protocol 1 MCG/KG/HR Esmolol HCl 2.5 gm in 250 mls @ 41.1 mls/hr 10/14/19 09:00 10/14/19 10:30 Brevibloc Drip 2.5gm/250ml IV 0 mcg/kg/min TITR VERÓNICA 0 mls/hr Titration Protocol 50 MCG/KG/MIN Amino Acids/Electrolytes/Dextrose 2,016 mls @ 84 mls/hr 10/14/19 20:00 10/14/19 20:26 Tpn Adult IV 10/15/19 19:59 84 mls/hr DAILY@2000 VERÓNICA Administration Protocol Lactated Ringer's 1,000 mls @ 999 mls/hr 10/15/19 10:00 10/15/19 16:20 Lactated Ringers IV 10/18/19 11:01 999 mls/hr DIRECT VERÓNICA Administration Lactated Ringer's 500 mls @ 999 mls/hr 10/15/19 11:00 Lactated Ringers IV DIRECT VERÓNICA Lactated Ringer's 1,000 mls @ 250 mls/hr 10/15/19 11:00 10/15/19 18:01 Lactated Ringers IV 250 mls/hr DIRECT VERÓNICA Administration Piperacillin Sod/Tazobactam Sod 4.5 gm in 100 mls @ 200 mls/hr 10/15/19 13:00 10/15/19 17:03 Zosyn/Ns 4.5gm/100ml IV 200 mls/hr Q6HR [facility] Administration Protocol Amino Acids/Electrolytes/Dextrose 2,400 mls @ 100 mls/hr 10/15/19 20:00 Tpn Adult IV 10/16/19 19:59 DAILY@1999 [facility] Protocol Amiodarone HCl 900 mg/ 500 mls @ 33.333 mls/hr 10/15/19 16:00 10/15/19 16:11 Dextrose IV 1 mg/min DIRECT VERÓNICA 33.333 mls/hr Administration Protocol 1 MG/MIN Insulin Human Lispro 0 unit 10/14/19 12:00 10/15/19 18:04 Humalog SUB-Q Not Given Q6HR [facility] Protocol Lorazepam 2 mg 10/13/19 21:22 Ativan IV Q10MIN PRN Agitation Metoprolol Tartrate 2.5 mg 10/15/19 15:34 Metoprolol IV Q4HR PRN HR >130 Multi-Ingred Cream/Lotion/Oil/Oint 1 applic 10/14/19 02:19 Artificial Tears Ophth Oint OU Q4HR PRN Dry Eye(s) Ondansetron HCl 4 mg 10/05/19 21:22 10/11/19 18:20 Zofran IV 4 mg Q3H PRN Administration Nausea And Vomiting Pantoprazole Sodium 40 mg 10/15/19 10:00 10/15/19 10:39 Protonix IV 40 mg QDAY VERÓNICA Administration Sodium Chloride 10 ml 10/05/19 21:22 Sodium Chloride Flush Syringe 10 Ml IV PRN PRN LINE FLUSH Nutrition/Malnutrition Assess - Dietary Evaluation Nutrition/Malnutrition Findings: Nutrition Notes Start: 10/08/19 11:36 Freq: Status: Active Protocol: Document 10/15/19 11:32 LM (Rec: 10/15/19 11:58 LM [email or web address]) Nutrition Notes Initial or Follow up Reassessment Current Diagnosis Acute Kidney Injury,COPD, Hypertension Other Pertinent Diagnosis intra-abdominal infection, disruption of bowel anastomosis, LE edema Current Diet CPN at 84 ml/hr Labs/Tests Na 147 BUN 42 BG 112 Pertinent Medications Reviewed Height 6 ft Weight 137 kg Odd Body Weight (kg) 80.90 BMI 40.9 Subjective/Other Information CPN day 2. Increased rate to 100ml/hr to give more fluid and correct Na. Pt possibly returning to OR tomorrow. Percent of energy/protein needs met: 64%/99% Burn Absent Trauma Absent GI Symptoms None Current % PO Negligible Minimum of two criteria No Fluid Accumulation Mild (non-severe) #2 Nutrition Diagnosis Inadequate oral intake Diagnosis Progress(for reassessment Continues documentation) #1 Nutrition Diagnosis Increased nutrient needs ( specify in comment below) Diagnosis Progress(for reassessment Continues documentation) Is patient on ventilator? Yes Is Patient Ambulatory and/or Out of Bed No REE-([facility]-confined to bed) 2689.332 Kcal/Kg value to use for calculation 15 Approximate Energy Requirements Using 2054 kcal/Kg Calculation Used for Recommendations Kcal/kg Additional Notes Protein: 202g (up to 2.5 g/kg IBW 80.9 kg) Fluid: 1 ml/kcal or per MD Nutrition Intervention Change Diet Order: continue CPN Nutrition Support: CPN at 100 ml/hr: 8.3% dextrose, 0 mEq Na, 20 mEq K, 4 mEq Mg, 10 mmol phos, MVI, thiamine, 1278 mOsm Kcal 1,480 Protein (gm) 200 Carbohydrates (gm) 200 Fluid (mL) 2,400 Fiber (gm) 0 Goal #1 Meet energy and protein needs as best as possible via CPN Anticipated Discharge Needs: unable to determine at this time Follow-Up By: 10/16/19 Additional Comments Labs in AM: BMP, Mg, Phos
[2019-10-15] MEDS ORDERED: TOTAL PARENTERAL NUTRITION 2,400 ML IV SCH (20:00)
[2019-10-15 21:43] LABS: Albumin 1.9 g/dL (3.8-4.8); Gamma Globulin 0.7 g/dL (0.8-1.7)
[2019-10-15] MEDS ORDERED: ENOXAPARIN 40 MG/0.4 ML INJ SUB-Q SCH (22:00)
[2019-10-15] MEDS ORDERED: SODIUM CHLORIDE 0.9% 500 ML 500 ML IV ONE (23:47)
[2019-10-16] MEDS: PIPERACIL/TAZOBACTA 4.5/NS 100 4.5 GM/100 ML VIAL IV SCH ×5 (00:03→23:59)
[2019-10-16] MEDS: INSULIN LISPRO 100 UNIT/ML SUB-Q SCH ×4 (00:21→18:41)
[2019-10-16] MEDS: ARFORMOTEROL 15 MCG/2 ML NEBU IH SCH ×3 (01:28→21:56)
[2019-10-16] MEDS: IPRATROPIUM/ALBUTEROL SULFATE 3 ML AMPUL.NEB IH SCH ×4 (01:29→21:56)
[2019-10-16] MEDS: LACTATED RINGERS 1,000 ML IV SCH ×2 (02:59→07:55)
[2019-10-16] MEDS ORDERED: SODIUM CHLORIDE 0.9% 500 ML 500 ML IV ONE ×3 (03:07→13:00)
[2019-10-16 05:38] LABS: BUN/Creatinine Ratio 39; Blood Urea Nitrogen 35 mg/dL (9-20); Calcium 7.3 mg/dL (8.4-10.2); Hemolysis Index 8
[2019-10-16] MEDS: METOPROLOL TARTRATE 5 MG/5 ML INJ IV PRN ×2 (06:39→09:50)
[2019-10-16] MEDS: fentaNYL DRIP Premix 2,000 MCG/100 ML BAG IV SCH (07:52)
[2019-10-16] MEDS: BUDESONIDE 0.5 MG/2 ML NEBU IH SCH ×2 (08:02→21:56)
--- NOTE | 2019-10-16 08:46 | Event Note ---
Date: 10/16/19 No issues o/n. BP and labs are better. To OR today. Spoke with this AM.
[2019-10-16] MEDS ORDERED: POTASSIUM PHOSPHATE 15 MMOL in SODIUM CHLORIDE 0.9% 250ML 250 ML IV ONE (09:00)
[2019-10-16] MEDS ORDERED: MAGNESIUM SULFATE 4 GM/100 ML BAG IV ONE (09:00)
[2019-10-16] MEDS: PANTOPRAZOLE 40 MG INJ IV SCH (09:24)
[2019-10-16] MEDS: DIGOXIN 0.5 MG/2 ML INJ IV SCH (09:24)
[2019-10-16] MEDS: FLUCONAZOLE 400 MG 200 ML IV SCH (09:25)
[2019-10-16 09:30] LABS: Hematocrit 25.2 % (35.5-45.6); Hemoglobin 8.1 gm/dl (11.8-15.2); Mean Corpuscular HGB Conc 32 % (32-34); Mean Corpuscular Volume 93 fl (84-94); Platelet Count 197 K/mm3 (140-440); Red Cell Distribution Width 16.7 % (13.2-15.2)
--- NOTE | 2019-10-16 10:28 | Anesthesia Day of Surgery ---
Anesthesia Day of Surgery - Day of Surgery Patient Examined: Yes Patient H&P Reviewed: Yes Patient is NPO: Yes
--- NOTE | 2019-10-16 10:45 | Progress Note ---
Assessment and Plan 54 y/o male with anastomic leak 1. CV-tachycardia but stable BP. Agree with surgery that patient is most likely intravascular deplete. Agree with 1:1 replacement of output from OG. Will also bolus Lactated Ringers today and use those to replace output from OG. Repeat H/H stable. Hold on Transfusion unless surgery suggest post-operatively. Follow up cards recs from today. Was started on AMio yesterday but not well controlled. 2. Pulm-stable on Vent. FiO2 down to 45% prior to go to OR. CXR shows right lower lobe airspace disease (10/15). Has some light green substance being suctioned from endotracheal tube. The amount of this has decreased since yesterday.. No epidsodes of hypoxemia or increasing FiO2 requirements. CXR is not worse. At this point will watch. May need bronch if output increases worsening hypoxemia happens. 3. GI-Per surgery,OR today and likely again on fo repeat washout and possibly closure. Remains on TPN. Abx therapy per ID 4. Renal- Renal function and output have improved. Will continue to monitor 5. Neuro- on rounds, per nursing, patient did not wake up during sedation vacation. May still be drug effect as he did have some renal impairment for several days. Ativan has now been completely discontinued. Keep fent for pain control given what's going on in abdomen. Vacation again tomorrow. If patient does not wake up prior to time for extubation, may need head CT vs MRI. Reluctant to stop all sedation secondary to pain issues from abdomen and surgery. 6. ID-continues to spike temps. Re-cultured yesterday afternoon but had another spike last night. ID following. 7. Electrolytes-Hypernatremia. REviewed TPN, no sodium there. Could be from fluids on yesterday. Will continue to monitor. Renal following as well and will be interested in their viewpoint. Overall prognosis is guarded. Will continue to follow. CCT 31 minutes. Subjective Date of service: 10/16/19 Principal diagnosis: acute renal failure Interval history: BP stable but HR was still elevated. Labs were ok so taken back to OR this am. Currently there now. Sedation holiday was done again this am and patient did not wake up. Nursing has stopped the Ativan drip and I have asked pharmacy to remove from JAN. Objective Vital Signs - 12hr 10/15/19 10/15/19 10/15/19 22:45 23:00 23:15 Temperature Pulse Rate 136 H 134 H 134 H Pulse Rate [ Anterior Bilateral Upper Lobe] Pulse Rate [ Anterior Left Throughout] Pulse Rate [ From Monitor] Respiratory 20 21 21 Rate Respiratory Rate [Anterior Bilateral Upper Lobe] Respiratory Rate [Anterior Left Throughout ] Blood Pressure 138/78 132/73 137/72 O2 Sat by Pulse 96 96 97 Oximetry 10/15/19 10/15/19 10/15/19 23:30 23:31 23:45 Temperature 97.5 F L Pulse Rate 134 H 137 H Pulse Rate [ Anterior Bilateral Upper Lobe] Pulse Rate [ Anterior Left Throughout] Pulse Rate [ From Monitor] Respiratory 20 27 H Rate Respiratory Rate [Anterior Bilateral Upper Lobe] Respiratory Rate [Anterior Left Throughout ] Blood Pressure 128/69 115/79 O2 Sat by Pulse 96 97 Oximetry 10/15/19 10/15/19 10/15/19 23:49 23:54 23:56 Temperature Pulse Rate 127 H 135 H Pulse Rate [ Anterior Bilateral Upper Lobe] Pulse Rate [ Anterior Left Throughout] Pulse Rate [ 129 H From Monitor] Respiratory 20 23 Rate Respiratory Rate [Anterior Bilateral Upper Lobe] Respiratory Rate [Anterior Left Throughout ] Blood Pressure 115/79 115/79 O2 Sat by Pulse 97 99 96 Oximetry 10/16/19 10/16/19 10/16/19 00:00 00:15 00:30 Temperature Pulse Rate 126 H 127 H 128 H Pulse Rate [ Anterior Bilateral Upper Lobe] Pulse Rate [ Anterior Left Throughout] Pulse Rate [ From Monitor] Respiratory 20 20 21 Rate Respiratory Rate [Anterior Bilateral Upper Lobe] Respiratory Rate [Anterior Left Throughout ] Blood Pressure 115/79 129/69 129/77 O2 Sat by Pulse 96 97 96 Oximetry 10/16/19 10/16/19 10/16/19 00:45 01:00 01:15 Temperature Pulse Rate 127 H 127 H 135 H Pulse Rate [ Anterior Bilateral Upper Lobe] Pulse Rate [ Anterior Left Throughout] Pulse Rate [ From Monitor] Respiratory 21 22 20 Rate Respiratory Rate [Anterior Bilateral Upper Lobe] Respiratory Rate [Anterior Left Throughout ] Blood Pressure 135/75 133/74 130/78 O2 Sat by Pulse 96 97 97 Oximetry 10/16/19 10/16/19 10/16/19 01:30 01:45 02:00 Temperature Pulse Rate 128 H 136 H 128 H Pulse Rate [ Anterior Bilateral Upper Lobe] Pulse Rate [ Anterior Left Throughout] Pulse Rate [ From Monitor] Respiratory 20 22 21 Rate Respiratory Rate [Anterior Bilateral Upper Lobe] Respiratory Rate [Anterior Left Throughout ] Blood Pressure 138/76 130/69 148/87 O2 Sat by Pulse 96 96 97 Oximetry 10/16/19 10/16/19 10/16/19 02:16 02:30 02:45 Temperature Pulse Rate 122 H 128 H Pulse Rate [ 119 H Anterior Bilateral Upper Lobe] Pulse Rate [ 118 H Anterior Left Throughout] Pulse Rate [ From Monitor] Respiratory 24 22 Rate Respiratory 20 Rate [Anterior Bilateral Upper Lobe] Respiratory 20 Rate [Anterior Left Throughout ] Blood Pressure 146/64 146/64 O2 Sat by Pulse 96 96 Oximetry 10/16/19 10/16/19 10/16/19 02:46 03:00 03:30 Temperature Pulse Rate 122 H 121 H 128 H Pulse Rate [ Anterior Bilateral Upper Lobe] Pulse Rate [ Anterior Left Throughout] Pulse Rate [ From Monitor] Respiratory 20 21 21 Rate Respiratory Rate [Anterior Bilateral Upper Lobe] Respiratory Rate [Anterior Left Throughout ] Blood Pressure 135/65 135/65 156/69 O2 Sat by Pulse 96 97 95 Oximetry 10/16/19 10/16/19 10/16/19 03:33 03:53 04:00 Temperature 102.4 F H Pulse Rate 121 H 121 H Pulse Rate [ Anterior Bilateral Upper Lobe] Pulse Rate [ Anterior Left Throughout] Pulse Rate [ 129 H From Monitor] Respiratory 21 Rate Respiratory Rate [Anterior Bilateral Upper Lobe] Respiratory Rate [Anterior Left Throughout ] Blood Pressure 135/65 160/67 O2 Sat by Pulse 97 96 Oximetry 10/16/19 10/16/19 10/16/19 04:30 05:00 05:30 Temperature Pulse Rate 120 H 122 H 120 H Pulse Rate [ Anterior Bilateral Upper Lobe] Pulse Rate [ Anterior Left Throughout] Pulse Rate [ From Monitor] Respiratory 21 22 24 Rate Respiratory Rate [Anterior Bilateral Upper Lobe] Respiratory Rate [Anterior Left Throughout ] Blood Pressure 144/60 140/61 134/71 O2 Sat by Pulse 96 95 95 Oximetry 10/16/19 10/16/19 10/16/19 06:00 06:30 06:39 Temperature Pulse Rate 144 H 137 H 145 H Pulse Rate [ Anterior Bilateral Upper Lobe] Pulse Rate [ Anterior Left Throughout] Pulse Rate [ From Monitor] Respiratory 25 H 19 Rate Respiratory Rate [Anterior Bilateral Upper Lobe] Respiratory Rate [Anterior Left Throughout ] Blood Pressure 145/80 140/78 140/78 O2 Sat by Pulse 96 95 Oximetry 10/16/19 10/16/19 10/16/19 07:00 07:30 07:57 Temperature Pulse Rate 124 H 132 H 132 H Pulse Rate [ Anterior Bilateral Upper Lobe] Pulse Rate [ Anterior Left Throughout] Pulse Rate [ From Monitor] Respiratory 21 22 Rate Respiratory Rate [Anterior Bilateral Upper Lobe] Respiratory Rate [Anterior Left Throughout ] Blood Pressure 140/78 151/73 140/73 O2 Sat by Pulse 96 96 99 Oximetry 10/16/19 10/16/19 10/16/19 08:00 08:36 09:24 Temperature 99.9 F H Pulse Rate 145 H 147 H Pulse Rate [ Anterior Bilateral Upper Lobe] Pulse Rate [ 135 H Anterior Left Throughout] Pulse Rate [ From Monitor] Respiratory 25 H Rate Respiratory Rate [Anterior Bilateral Upper Lobe] Respiratory 25 H Rate [Anterior Left Throughout ] Blood Pressure 140/73 141/74 O2 Sat by Pulse 98 Oximetry 10/16/19 09:50 Temperature Pulse Rate 150 H Pulse Rate [ Anterior Bilateral Upper Lobe] Pulse Rate [ Anterior Left Throughout] Pulse Rate [ From Monitor] Respiratory Rate Respiratory Rate [Anterior Bilateral Upper Lobe] Respiratory Rate [Anterior Left Throughout ] Blood Pressure 141/74 O2 Sat by Pulse Oximetry Constitutional: alert Eyes: non-icteric ENT: oropharynx moist Neck: supple Effort: normal Ascultation: Bilateral: diminished breath sounds Cardiovascular: regular rate and rhythm Gastrointestinal: tender Integumentary: normal Extremities: no cyanosis Neurologic: normal mental status, non-focal exam Psychiatric: mood appropriate, affect normal CBC and BMP: 10/16/19 09:20 10/16/19 04:44 ABG, PT/INR, D-dimer: ABG POC ABG pH 7.363 (7.35-7.45) 10/16/19 06:53 ABG pH 7.296 pH Units (7.350-7.450) L 10/15/19 05:30 POC ABG pCO2 47.0 (35-45) H 10/16/19 06:53 ABG pCO2 47.7 mm Hg 10/15/19 05:30 POC ABG pO2 80 (80-105) 10/16/19 06:53 ABG pO2 114.7 mm Hg (80.0-90.0) H 10/15/19 05:30 POC ABG HCO3 26.7 (22-26 mml/L) 10/16/19 06:53 POC ABG Total CO2 28 (23-27mmol/L) 10/16/19 06:53 POC ABG O2 Sat 95 10/16/19 06:53 ABG O2 Saturation 97.8 % (95.0-99.0) 10/15/19 05:30 Abnormal lab findings: Abnormal Labs 10/06/19 10/06/19 10/07/19 05:36 05:36 05:54 WBC 21.8 H 21.5 H RBC 3.55 L Hgb 10.9 L Hct 32.7 L RDW Plt Count Seg Neuts % (Manual) 91.0 H Lymphocytes % (Manual) 2.0 L Seg Neutrophils # Man 19.8 H Lymphocytes # (Manual) 0.4 L Monocytes # (Manual) 1.1 H ABG pH POC ABG pCO2 POC ABG pO2 ABG pO2 ABG HCO3 ABG Base Excess ABG Hemoglobin Oxyhemoglobin Sodium 135 L Potassium Chloride 95.9 L Carbon Dioxide BUN Creatinine 0.7 L Glucose POC Glucose Calcium Phosphorus Magnesium Direct Bilirubin AST C-Reactive Protein Serum Total Protein Total Protein 5.7 L Albumin 2.5 L Prealbumin Slkds-7-Ptxnvgtza Mjhru-5-Tvycimqbn Gamma Globulins PEP Interpretation Urine Creatinine Urine Total Protein 10/07/19 10/09/19 10/09/19 05:54 10:52 10:52 WBC 16.6 H RBC Hgb Hct RDW Plt Count 498 H Seg Neuts % (Manual) 93.0 H Lymphocytes % (Manual) 5.0 L Seg Neutrophils # Man 15.4 H Lymphocytes # (Manual) 0.8 L Monocytes # (Manual) ABG pH POC ABG pCO2 POC ABG pO2 ABG pO2 ABG HCO3 ABG Base Excess ABG Hemoglobin Oxyhemoglobin Sodium Potassium Chloride 97.9 L Carbon Dioxide 20 L D BUN 23 H Creatinine 1.7 H D Glucose 109 H POC Glucose Calcium 8.1 L Phosphorus Magnesium Direct Bilirubin AST C-Reactive Protein Serum Total Protein Total Protein Albumin Prealbumin Dxjpi-0-Cjuqwvhqi Knrjt-7-Beddbhmsk Gamma Globulins PEP Interpretation Urine Creatinine Urine Total Protein 10/09/19 10/10/19 10/10/19 17:23 05:30 05:30 WBC 14.6 H RBC Hgb 11.1 L Hct 33.5 L RDW Plt Count 527 H Seg Neuts % (Manual) Lymphocytes % (Manual) Seg Neutrophils # Man Lymphocytes # (Manual) Monocytes # (Manual) ABG pH POC ABG pCO2 POC ABG pO2 ABG pO2 ABG HCO3 ABG Base Excess ABG Hemoglobin Oxyhemoglobin Sodium 130 L D Potassium 5.1 H Chloride 90.0 L 91.0 L Carbon Dioxide 20 L 20 L BUN 27 H 35 H Creatinine 1.9 H 2.0 H Glucose 104 H POC Glucose Calcium Phosphorus Magnesium Direct Bilirubin AST C-Reactive Protein Serum Total Protein Total Protein Albumin Prealbumin Aqzfx-2-Xjfgbeopz Ssyjc-9-Xbgxxzbxs Gamma Globulins PEP Interpretation Urine Creatinine Urine Total Protein 10/10/19 10/10/19 10/11/19 08:33 08:44 05:41 WBC 13.2 H RBC Hgb 11.3 L Hct 33.8 L RDW 15.3 H Plt Count 543 H Seg Neuts % (Manual) Lymphocytes % (Manual) Seg Neutrophils # Man Lymphocytes # (Manual) Monocytes # (Manual) ABG pH POC ABG pCO2 POC ABG pO2 ABG pO2 ABG HCO3 ABG Base Excess ABG Hemoglobin Oxyhemoglobin Sodium Potassium Chloride Carbon Dioxide BUN Creatinine Glucose 113 H POC Glucose 117 H Calcium Phosphorus Magnesium Direct Bilirubin AST C-Reactive Protein Serum Total Protein Total Protein Albumin Prealbumin Vhplm-6-Kblaflmvp Jmchm-4-Ujmlogmcg Gamma Globulins PEP Interpretation Urine Creatinine Urine Total Protein 10/11/19 10/11/19 10/11/19 05:41 06:23 06:23 WBC RBC Hgb Hct RDW Plt Count Seg Neuts % (Manual) Lymphocytes % (Manual) Seg Neutrophils # Man Lymphocytes # (Manual) Monocytes # (Manual) ABG pH POC ABG pCO2 POC ABG pO2 ABG pO2 ABG HCO3 ABG Base Excess ABG Hemoglobin Oxyhemoglobin Sodium 134 L Potassium Chloride 96.3 L Carbon Dioxide BUN 37 H Creatinine Glucose 58 L POC Glucose Calcium Phosphorus 4.90 H Magnesium Direct Bilirubin AST C-Reactive Protein Serum Total Protein Total Protein Albumin Prealbumin Xwavq-9-Crldfvmro Dmlyj-9-Lgfieauoc Gamma Globulins PEP Interpretation Urine Creatinine 118.2 H 116.8 H Urine Total Protein 105 H 104 H 10/11/19 10/12/19 10/12/19 09:00 06:09 06:09 WBC 13.8 H RBC 3.39 L Hgb 10.2 L Hct 30.9 L RDW 15.5 H Plt Count 459 H Seg Neuts % (Manual) Lymphocytes % (Manual) Seg Neutrophils # Man Lymphocytes # (Manual) Monocytes # (Manual) ABG pH POC ABG pCO2 POC ABG pO2 ABG pO2 ABG HCO3 ABG Base Excess ABG Hemoglobin Oxyhemoglobin Sodium 131 L Potassium Chloride 96.2 L Carbon Dioxide 21 L BUN 43 H Creatinine Glucose 72 L POC Glucose Calcium Phosphorus Magnesium Direct Bilirubin AST C-Reactive Protein Serum Total Protein 5.2 L Total Protein Albumin 1.9 L Prealbumin Gptda-0-Fkuptvond 0.9 H Acpjl-3-Bffyjnrpq 1.0 H Gamma Globulins 0.7 L PEP Interpretation see below H Urine Creatinine Urine Total Protein 10/12/19 10/12/19 10/12/19 08:20 09:30 09:30 WBC RBC Hgb Hct RDW Plt Count Seg Neuts % (Manual) Lymphocytes % (Manual) Seg Neutrophils # Man Lymphocytes # (Manual) Monocytes # (Manual) ABG pH POC ABG pCO2 POC ABG pO2 63 L ABG pO2 ABG HCO3 ABG Base Excess ABG Hemoglobin Oxyhemoglobin Sodium Potassium Chloride Carbon Dioxide BUN Creatinine Glucose POC Glucose Calcium Phosphorus Magnesium 2.50 H Direct Bilirubin 0.3 H AST C-Reactive Protein Serum Total Protein Total Protein 5.1 L Albumin 2.2 L Prealbumin Lzgfu-1-Yfjvifezt Otegb-8-Lsymbbnvq Gamma Globulins PEP Interpretation Urine Creatinine Urine Total Protein 10/13/19 10/13/19 10/13/19 04:20 04:20 18:24 WBC 15.7 H RBC 3.64 L Hgb 10.9 L Hct 33.1 L RDW 15.8 H Plt Count 488 H Seg Neuts % (Manual) Lymphocytes % (Manual) Seg Neutrophils # Man Lymphocytes # (Manual) Monocytes # (Manual) ABG pH 7.180 L* POC ABG pCO2 POC ABG pO2 ABG pO2 130.7 H ABG HCO3 ABG Base Excess -6.5 L ABG Hemoglobin 12.2 L Oxyhemoglobin Sodium Potassium Chloride Carbon Dioxide BUN 28 H Creatinine Glucose POC Glucose Calcium Phosphorus Magnesium Direct Bilirubin AST C-Reactive Protein Serum Total Protein Total Protein Albumin Prealbumin Iyqfi-9-Venvuldqu Vbypw-5-Edsmyuwoj Gamma Globulins PEP Interpretation Urine Creatinine Urine Total Protein 10/13/19 10/14/19 10/14/19 20:05 04:47 04:47 WBC 24.2 H RBC Hgb 10.9 L Hct 34.2 L RDW 17.0 H Plt Count 442 H Seg Neuts % (Manual) Lymphocytes % (Manual) Seg Neutrophils # Man Lymphocytes # (Manual) Monocytes # (Manual) ABG pH 7.278 L POC ABG pCO2 POC ABG pO2 ABG pO2 ABG HCO3 ABG Base Excess -6.5 L ABG Hemoglobin 12.3 L Oxyhemoglobin 92.9 L Sodium Potassium 5.1 H D Chloride 109.2 H Carbon Dioxide 17 L BUN 38 H Creatinine 1.8 H D Glucose 104 H POC Glucose Calcium 7.4 L Phosphorus Magnesium Direct Bilirubin AST C-Reactive Protein Serum Total Protein Total Protein Albumin Prealbumin Ioazu-1-Ppnwdmaeq Kiggv-4-Dwztwzngs Gamma Globulins PEP Interpretation Urine Creatinine Urine Total Protein 10/14/19 10/14/19 10/14/19 05:40 10:14 23:46 WBC RBC Hgb Hct RDW Plt Count Seg Neuts % (Manual) Lymphocytes % (Manual) Seg Neutrophils # Man Lymphocytes # (Manual) Monocytes # (Manual) ABG pH POC ABG pCO2 POC ABG pO2 ABG pO2 76.3 L ABG HCO3 19.1 L ABG Base Excess -5.8 L ABG Hemoglobin 10.9 L Oxyhemoglobin 93.4 L Sodium Potassium Chloride Carbon Dioxide BUN Creatinine Glucose POC Glucose 113 H Calcium Phosphorus 5.60 H Magnesium Direct Bilirubin AST C-Reactive Protein Serum Total Protein Total Protein Albumin Prealbumin Alwcz-3-Aximnkewr Zvegy-7-Ttttcyqze Gamma Globulins PEP Interpretation Urine Creatinine Urine Total Protein 10/15/19 10/15/19 10/15/19 04:32 04:32 05:30 WBC 15.5 H RBC 2.89 L Hgb 8.8 L Hct 27.3 L D RDW 16.6 H Plt Count Seg Neuts % (Manual) Lymphocytes % (Manual) Seg Neutrophils # Man Lymphocytes # (Manual) Monocytes # (Manual) ABG pH 7.296 L POC ABG pCO2 POC ABG pO2 ABG pO2 114.7 H ABG HCO3 ABG Base Excess -3.7 L ABG Hemoglobin 8.9 L Oxyhemoglobin Sodium 147 H Potassium Chloride 114.0 H Carbon Dioxide 19 L BUN 42 H Creatinine Glucose 112 H POC Glucose Calcium 7.3 L Phosphorus Magnesium Direct Bilirubin AST 72 H C-Reactive Protein 30.60 H Serum Total Protein Total Protein 4.0 L D Albumin 1.7 L Prealbumin 0.030 L Mtvdl-6-Pregdqfqz Ivsaw-3-Fscysgrbn Gamma Globulins PEP Interpretation Urine Creatinine Urine Total Protein 10/15/19 10/15/19 10/16/19 12:08 17:23 00:07 WBC RBC Hgb Hct RDW Plt Count Seg Neuts % (Manual) Lymphocytes % (Manual) Seg Neutrophils # Man Lymphocytes # (Manual) Monocytes # (Manual) ABG pH POC ABG pCO2 POC ABG pO2 ABG pO2 ABG HCO3 ABG Base Excess ABG Hemoglobin Oxyhemoglobin Sodium Potassium Chloride Carbon Dioxide BUN Creatinine Glucose POC Glucose 106 H 106 H 119 H Calcium Phosphorus Magnesium Direct Bilirubin AST C-Reactive Protein Serum Total Protein Total Protein Albumin Prealbumin Urntd-6-Txzmyauku Mizzc-0-Yqejoeuip Gamma Globulins PEP Interpretation Urine Creatinine Urine Total Protein 10/16/19 10/16/19 10/16/19 04:44 05:24 06:53 WBC RBC Hgb Hct RDW Plt Count Seg Neuts % (Manual) Lymphocytes % (Manual) Seg Neutrophils # Man Lymphocytes # (Manual) Monocytes # (Manual) ABG pH POC ABG pCO2 47.0 H POC ABG pO2 ABG pO2 ABG HCO3 ABG Base Excess ABG Hemoglobin Oxyhemoglobin Sodium 150 H Potassium Chloride 115.8 H Carbon Dioxide BUN 35 H Creatinine Glucose 129 H POC Glucose 129 H Calcium 7.3 L Phosphorus 1.80 L D Magnesium Direct Bilirubin AST C-Reactive Protein Serum Total Protein Total Protein Albumin Prealbumin Grsfp-6-Xosftshjn Kcsfz-2-Uvrygzdrh Gamma Globulins PEP Interpretation Urine Creatinine Urine Total Protein 10/16/19 09:20 WBC 14.6 H RBC 2.70 L Hgb 8.1 L Hct 25.2 L RDW 16.7 H Plt Count Seg Neuts % (Manual) Lymphocytes % (Manual) Seg Neutrophils # Man Lymphocytes # (Manual) Monocytes # (Manual) ABG pH POC ABG pCO2 POC ABG pO2 ABG pO2 ABG HCO3 ABG Base Excess ABG Hemoglobin Oxyhemoglobin Sodium Potassium Chloride Carbon Dioxide BUN Creatinine Glucose POC Glucose Calcium Phosphorus Magnesium Direct Bilirubin AST C-Reactive Protein Serum Total Protein Total Protein Albumin Prealbumin Cstdd-5-Hzysbjzzt Ejkbx-9-Ispfhyhrx Gamma Globulins PEP Interpretation Urine Creatinine Urine Total Protein
[2019-10-16 11:09] LABS: Band Neutrophils # (Manual) 1.8 K/mm3; Basophils % (Manual) 0 % (0.0-1.8); Eosinophils % (Manual) 0 % (0.0-4.3); Hypochromasia Few; Myelocytes # (Manual) 0.1 K/mm3; Platelet Estimate Consistent w Auto; Target Cells Few; Total Cells Counted 100
[2019-10-16] MEDS ORDERED: SODIUM CHLORIDE 0.9% IRR 1,500 ML BOTTLE IR ONE ×2 (11:09)
--- NOTE | 2019-10-16 11:42 | Progress Note ---
Assessment and Plan Acute Renal Failure likely secondary to ischemic ATN due to Sepsis, hypotension - improved Cr, good UOP - will need to be switcht o 1/2 NS due to rising na - SPEP and UPEP pending - No hydronephrosis on CT - Monitor I/O's - [place] Catheter: Yes Dehiscence of closure of fascia, superficial or muscular Abdominal Pain -S/p multiple abdominal surgeries -S/p CT guided placement of a 8 Fr APD drain in the RUQ and RLQ by IR 10/10/19 -Gen surgeon on board, s/p surgery on 10/13/19 with re-opening of laparotomy, abdominal washout, colon stapled transection, and Abthera Placement, went to OR again today Hx Hypertension, now hypotensive Hx of CAD/PR: Tachycardia: - Cardiology on board, start IV fluids, off esmolol drip for now given hypotension, f/u recs - Adjust regimen as needed Tylor matta MD [phone] Subjective Date of service: 10/16/19 Principal diagnosis: acute renal failure Interval history: was in OR this AM Objective - Vital Signs Vital signs: Vital Signs - 12hr 10/15/19 10/15/19 10/15/19 23:45 23:49 23:54 Temperature Pulse Rate 137 H 127 H Pulse Rate [ Anterior Bilateral Upper Lobe] Pulse Rate [ Anterior Left Throughout] Pulse Rate [ 129 H From Monitor] Respiratory 27 H 20 Rate Respiratory Rate [Anterior Bilateral Upper Lobe] Respiratory Rate [Anterior Left Throughout ] Blood Pressure 115/79 115/79 O2 Sat by Pulse 97 97 99 Oximetry 10/15/19 10/16/19 10/16/19 23:56 00:00 00:15 Temperature Pulse Rate 135 H 126 H 127 H Pulse Rate [ Anterior Bilateral Upper Lobe] Pulse Rate [ Anterior Left Throughout] Pulse Rate [ From Monitor] Respiratory 23 20 20 Rate Respiratory Rate [Anterior Bilateral Upper Lobe] Respiratory Rate [Anterior Left Throughout ] Blood Pressure 115/79 115/79 129/69 O2 Sat by Pulse 96 96 97 Oximetry 10/16/19 10/16/19 10/16/19 00:30 00:45 01:00 Temperature Pulse Rate 128 H 127 H 127 H Pulse Rate [ Anterior Bilateral Upper Lobe] Pulse Rate [ Anterior Left Throughout] Pulse Rate [ From Monitor] Respiratory 21 21 22 Rate Respiratory Rate [Anterior Bilateral Upper Lobe] Respiratory Rate [Anterior Left Throughout ] Blood Pressure 129/77 135/75 133/74 O2 Sat by Pulse 96 96 97 Oximetry 10/16/19 10/16/19 10/16/19 01:15 01:30 01:45 Temperature Pulse Rate 135 H 128 H 136 H Pulse Rate [ Anterior Bilateral Upper Lobe] Pulse Rate [ Anterior Left Throughout] Pulse Rate [ From Monitor] Respiratory 20 20 22 Rate Respiratory Rate [Anterior Bilateral Upper Lobe] Respiratory Rate [Anterior Left Throughout ] Blood Pressure 130/78 138/76 130/69 O2 Sat by Pulse 97 96 96 Oximetry 10/16/19 10/16/19 10/16/19 02:00 02:16 02:30 Temperature Pulse Rate 128 H 122 H 128 H Pulse Rate [ Anterior Bilateral Upper Lobe] Pulse Rate [ Anterior Left Throughout] Pulse Rate [ From Monitor] Respiratory 21 24 22 Rate Respiratory Rate [Anterior Bilateral Upper Lobe] Respiratory Rate [Anterior Left Throughout ] Blood Pressure 148/87 146/64 146/64 O2 Sat by Pulse 97 96 96 Oximetry 10/16/19 10/16/19 10/16/19 02:45 02:46 03:00 Temperature Pulse Rate 122 H 121 H Pulse Rate [ 119 H Anterior Bilateral Upper Lobe] Pulse Rate [ 118 H Anterior Left Throughout] Pulse Rate [ From Monitor] Respiratory 20 21 Rate Respiratory 20 Rate [Anterior Bilateral Upper Lobe] Respiratory 20 Rate [Anterior Left Throughout ] Blood Pressure 135/65 135/65 O2 Sat by Pulse 96 97 Oximetry 10/16/19 10/16/19 10/16/19 03:30 03:33 03:53 Temperature 102.4 F H Pulse Rate 128 H 121 H Pulse Rate [ Anterior Bilateral Upper Lobe] Pulse Rate [ Anterior Left Throughout] Pulse Rate [ From Monitor] Respiratory 21 Rate Respiratory Rate [Anterior Bilateral Upper Lobe] Respiratory Rate [Anterior Left Throughout ] Blood Pressure 156/69 135/65 O2 Sat by Pulse 95 97 Oximetry 10/16/19 10/16/19 10/16/19 04:00 04:30 05:00 Temperature Pulse Rate 121 H 120 H 122 H Pulse Rate [ Anterior Bilateral Upper Lobe] Pulse Rate [ Anterior Left Throughout] Pulse Rate [ 129 H From Monitor] Respiratory 21 21 22 Rate Respiratory Rate [Anterior Bilateral Upper Lobe] Respiratory Rate [Anterior Left Throughout ] Blood Pressure 160/67 144/60 140/61 O2 Sat by Pulse 96 96 95 Oximetry 10/16/19 10/16/1919 05:30 06:00 06:30 Temperature Pulse Rate 120 H 144 H 137 H Pulse Rate [ Anterior Bilateral Upper Lobe] Pulse Rate [ Anterior Left Throughout] Pulse Rate [ From Monitor] Respiratory 24 25 H 19 Rate Respiratory Rate [Anterior Bilateral Upper Lobe] Respiratory Rate [Anterior Left Throughout ] Blood Pressure 134/71 145/80 140/78 O2 Sat by Pulse 95 96 95 Oximetry 10/16/19 10/16/19 10/16/19 06:39 07:00 07:30 Temperature Pulse Rate 145 H 124 H 132 H Pulse Rate [ Anterior Bilateral Upper Lobe] Pulse Rate [ Anterior Left Throughout] Pulse Rate [ From Monitor] Respiratory 21 22 Rate Respiratory Rate [Anterior Bilateral Upper Lobe] Respiratory Rate [Anterior Left Throughout ] Blood Pressure 140/78 140/78 151/73 O2 Sat by Pulse 96 96 Oximetry 10/16/19 10/16/19 10/16/19 07:57 08:00 08:30 Temperature 99.9 F H Pulse Rate 132 H 145 H 156 H Pulse Rate [ Anterior Bilateral Upper Lobe] Pulse Rate [ Anterior Left Throughout] Pulse Rate [ 145 H From Monitor] Respiratory 25 H 22 Rate Respiratory Rate [Anterior Bilateral Upper Lobe] Respiratory Rate [Anterior Left Throughout ] Blood Pressure 140/73 140/73 134/84 O2 Sat by Pulse 99 98 100 Oximetry 10/16/19 10/16/19 10/16/19 08:36 09:00 09:24 Temperature Pulse Rate 145 H 147 H Pulse Rate [ Anterior Bilateral Upper Lobe] Pulse Rate [ 135 H Anterior Left Throughout] Pulse Rate [ From Monitor] Respiratory 22 Rate Respiratory Rate [Anterior Bilateral Upper Lobe] Respiratory 25 H Rate [Anterior Left Throughout ] Blood Pressure 141/74 141/74 O2 Sat by Pulse 95 Oximetry 10/16/19 09:50 Temperature Pulse Rate 150 H Pulse Rate [ Anterior Bilateral Upper Lobe] Pulse Rate [ Anterior Left Throughout] Pulse Rate [ From Monitor] Respiratory Rate Respiratory Rate [Anterior Bilateral Upper Lobe] Respiratory Rate [Anterior Left Throughout ] Blood Pressure 141/74 O2 Sat by Pulse Oximetry - Lab 10/16/19 09:20 10/16/19 04:44 Most recent lab results ABG pH 7.296 pH Units (7.350-7.450) L 10/15/19 05:30 ABG pCO2 47.7 mm Hg 10/15/19 05:30 ABG pO2 114.7 mm Hg (80.0-90.0) H 10/15/19 05:30 ABG HCO3 22.7 mmol/L (20.0-26.0) 10/15/19 05:30 ABG O2 Saturation 97.8 % (95.0-99.0) 10/15/19 05:30 Calcium 7.3 mg/dL (8.4-10.2) L 10/16/19 04:44 Phosphorus 1.80 mg/dL (2.5-4.5) L D 10/16/19 04:44 Magnesium 1.70 mg/dL (1.7-2.3) 10/16/19 04:44 Urine Creatinine 116.8 mg/dL (0.1-20.0) H 10/11/19 06:23 Urine Creatinine 118.2 mg/dL (0.1-20.0) H 10/11/19 06:23 Urine Sodium 14 mmol/L 10/11/19 06:23 Urine Total Protein 104 mg/dL (5-11.8) H 10/11/19 06:23 Urine Total Protein 105 mg/dL (5-11.8) H 10/11/19 06:23 Medications & Allergies - Medications Allergies/Adverse Reactions: Allergies Sulfa (Sulfonamide Antibiotics) Allergy (Severe, Verified 03/22/16 18:34) Rash oxytetracycline [From Terramycin] Allergy (Verified 03/22/16 10:32) Unknown oxytetracycline HCl [From Terramycin] Allergy (Verified 03/22/16 10:32) Unknown Home Medications: Home Medications Medication Instructions Recorded Confirmed Last Taken Type ALBUTEROL Inhaler (OR & NICU) 2 puff IH QID PRN #1 inhalation 08/17/18 10/06/19 Unknown Rx [ProAir HFA Inhaler] Arformoterol Nebu [Brovana Nebu] 15 mcg IH Q12HRT ml 08/17/18 10/06/19 10/05/19 Rx Benzonatate [Tessalon Perles] 100 mg PO Q8HR capsule 08/17/18 10/06/19 10/03/19 21:00 Rx Citalopram [Celexa] 20 mg PO QDAY #30 tablet 08/17/18 10/06/19 10/04/19 Rx Ipratropium/Albuterol Sulfate 1 ampul IH Q6HRT #30 ampul.neb 08/17/18 10/06/19 10/05/19 21:00 Rx [DUONEB *Not for PRN Use*] Lisinopril [Zestril TAB] 20 mg PO DAILY #30 tablet 08/17/18 10/06/19 10/05/19 08:00 Rx Metoprolol [Lopressor TAB] 100 mg PO BID #60 tablet 08/17/18 10/06/19 10/05/19 08:00 Rx Pravastatin [Pravachol] 40 mg PO QHS #30 tablet 08/17/18 10/06/19 10/04/19 22:00 Rx Symbicort 160-4.5 Mcg Inhaler 1 puff INHALATION BID #30 08/17/18 10/06/19 09/05/19 23:00 Rx Acetaminophen [Acetaminophen TAB] 2 tab PO Q4H PRN #30 tablet 10/03/19 10/06/19 Unknown Rx Bisacodyl [Dulcolax suppos] 10 mg AL QDAY PRN #4 supp.rect 10/03/19 10/06/19 Unknown Rx Pantoprazole [Protonix TAB] 40 mg PO BID #60 tablet 10/03/19 10/06/19 10/04/19 21:00 Rx Sucralfate [Carafate] 1 gm PO Q6HR 30 Days oral.liqd 10/03/19 10/06/19 10/05/19 08:00 Rx levoFLOXacin [Levaquin TAB] 750 mg PO QDAY #2 tablet 10/03/19 10/06/19 10/04/19 08:00 Rx oxyCODONE /ACETAMINOPHEN [Percocet 1 tab PO Q4H PRN #26 tablet 10/03/19 10/06/19 10/04/19 21:00 Rx 5/325 mg] Active Medications: Generic Name Dose Route Start Last Admin Trade Name Freq PRN Reason Stop Dose Admin Acetaminophen 650 mg 10/15/19 10:00 Tylenol AL Q4H PRN Pain MILD(1-3)/Fever >100.5/ROMANO Albuterol 2.5 mg 10/05/19 21:36 Proventil IH Q4HRT PRN Shortness Of Breath Albuterol/Ipratropium 1 ampul 10/06/19 02:00 10/16/19 08:01 Duoneb *Not For Prn Use* IH 1 ampul Q6HRT VERÓNICA Administration Arformoterol Tartrate 15 mcg 10/06/19 08:30 10/16/19 08:01 Brojessy Nebu IH 15 mcg Q12HRT VERÓNICA Administration Budesonide 0.5 mg 10/07/19 12:20 10/16/19 08:02 Pulmicort IH 0.5 mg Q12HRT VERÓNICA Administration Digoxin 0.125 mg 10/15/19 17:00 10/16/19 09:24 Lanoxin IV 0.125 mg QDAY VERÓNICA Administration Enoxaparin Sodium 40 mg 10/16/19 22:00 Enoxaparin SUB-Q QDAY@2200 VERÓNICA Fentanyl 50 mcg 10/14/19 02:19 Sublimaze IV Q10MIN PRN ANALGESIA Fluconazole 200 mls @ 100 mls/hr 10/12/19 11:00 10/16/19 09:25 Diflucan IV 100 mls/hr Q24HR VERÓNICA Administration Protocol Fentanyl Citrate 2,000 mcg in 100 mls @ 6.85 mls/hr 10/14/19 03:00 10/16/19 07:52 Fentanyl Drip Premix IV 1 mcg/kg/hr TITR VERÓNICA 6.85 mls/hr Administration Protocol 1 MCG/KG/HR Lactated Ringer's 500 mls @ 999 mls/hr 10/15/19 11:00 Lactated Ringers IV DIRECT VERÓNICA Lactated Ringer's 1,000 mls @ 250 mls/hr 10/15/19 11:00 10/16/19 07:55 Lactated Ringers IV 250 mls/hr DIRECT VERÓNICA Administration Piperacillin Sod/Tazobactam Sod 4.5 gm in 100 mls @ 200 mls/hr 10/15/19 13:00 10/16/19 06:19 Zosyn/Ns 4.5gm/100ml IV 200 mls/hr Q6HR VERÓNICA Administration Protocol Amino Acids/Electrolytes/Dextrose 2,400 mls @ 100 mls/hr 10/15/19 20:00 10/15/19 20:15 Tpn Adult IV 10/16/19 19:59 100 mls/hr DAILY@2000 VERÓNICA Administration Protocol Amiodarone HCl 900 mg/ 500 mls @ 33.333 mls/hr 10/15/19 16:00 10/15/19 22:15 Dextrose IV 0.5 mg/min DIRECT VERÓNICA 16.667 mls/hr Infusion Protocol 1 MG/MIN Magnesium Sulfate 4 gm in 100 mls @ 25 mls/hr 10/16/19 09:00 10/16/19 08:49 Magnesium Sulfate 4gm/100ml IV 10/16/19 12:59 25 mls/hr ONCE ONE Administration Sodium Chloride 500 mls @ 0 mls/hr 10/16/19 11:38 Nacl 0.9% 500 Ml IV 10/16/19 11:39 ONCE ONE As Directed Insulin Human Lispro 0 unit 10/14/19 12:00 10/16/19 06:09 Humalog SUB-Q Not Given Q6HR [facility] Protocol Metoprolol Tartrate 2.5 mg 10/15/19 15:34 10/16/19 09:50 Metoprolol IV 2.5 mg Q4HR PRN Administration HR >130 Multi-Ingred Cream/Lotion/Oil/Oint 1 applic 10/14/19 02:19 Artificial Tears Ophth Oint OU Q4HR PRN Dry Eye(s) Ondansetron HCl 4 mg 10/05/19 21:22 10/11/19 18:20 Zofran IV 4 mg Q3H PRN Administration Nausea And Vomiting Pantoprazole Sodium 40 mg 10/15/19 10:00 10/16/19 09:24 Protonix IV 40 mg QDAY VERÓNICA Administration Sodium Chloride 10 ml 10/05/19 21:22 Sodium Chloride Flush Syringe 10 Ml IV PRN PRN LINE FLUSH
[2019-10-16] MEDS ORDERED: SODIUM CHLORIDE 0.9% 500 ML 500 ML IV NR (12:00)
--- NOTE | 2019-10-16 12:38 | Progress Note ---
Assessment and Plan Assessment and plan: 54 yo male with hx of CAD, CO, emphysema, COPD who presents with prolonged complicated course as a result of a bowel perforation. He has had 3 surgeries over the course of 10 days. On admission, a portion of his intestines protruded through the wound after severe cough. Dehiscence of closure of fascia * Went to OR for ex lap with closure of abdominal wall and wound vac placement (10/05) * Continued to decline with possible Air vs fluid, 10/10/19 IR went in and placed two drains, Noted to have possible fecal material * Returned to the OR 10/13/19 due to concern for intra-abdominal infection and was found to have with heavy contamination of abdomen patent had disruption of bowel anastomosis, abdominal washout, abthera placement and colon stapled transection and left bowel enterotomy from anastomosis completely open * Returned to OR today for abdominal washout, Partial Omentectomy, Partial Colectomy, Colostomy Creation and AbThera Placement Severe sepsis secondary to bowel leak at anastomosis site/PNA -cont IV zosyn and diflucan -surgical culture positive for enterococcus duras Acute Respiratory failure with hypoxia -on MV support -Parachute/Combatant Diver Officer following Left lower lobe pneumonia -Continue IV antibiotic -CTA chest showed left lower lobe consolidation with pleural effusion GUILLERMO on CRF -probably ATN due to sepsis -Improving, will monitor -SPEP and UPEP pending -No hydronephrosis on CT -[place] in place, monitor I/O's Severe Metabolic acidosis -Improved Acute Toxic Metabolic Encephalopathy/Delirium Tremens -Started on CIWA protocol due to hx of ETOH abuse, 6packs a day -Head CT scan negative for acute findings Hyperkalemia -Resolved Hyponatremia, now hypernatremia -IV fluid changed to 1/2NS -Will monitor sodium level Acute blood loss anemia -H/H stable -Continue to monitor H&H and transfuse for hb<7 SVT, Atrial fib/flutter with RVR -treated with adenosine x1 -on IV amiodarone, digoxin and PRN IV Lopressor -cardizem drip added -Cardiology following Hypotension -Off esmolol drip -s/p IV fluid boluses, BP stable Hx of Hypertension -Stable Hyperlipidemia -stable Atypical chest pain -probably secondary to pneumonitis -troponin levels neg Hx of CO/CAD -s/p PCI of the circumflex and second vessel POBA of the distal LAD occlusion. Left ventricle fraction of 45-50%. Morbid obesity with BMI of 45.4 -Lifestyle modification recommended COPD -Stable -cont neb tx Moderate Protein calorie malnutrition secondary to surgery -On TPN -Nutrition following Tobacco abuse -Cessation recommended Disp: Very poor prognosis. d/c per clinical course Critical time spent: 38 mins History Interval history: Patient is nonverbal. No reported issues overnight. Hospitalist Physical - Constitutional Vitals: Temp Pulse Resp BP Pulse Ox 99.9 F H 150 H 22 141/74 95 10/16/19 08:00 10/16/19 09:50 10/16/19 09:00 10/16/19 09:50 10/16/19 09:00 General appearance: Present: no acute distress, obese - EENT Eyes: Present: PERRL ENT: other (pt is intubated) - Neck Neck: Present: supple - Respiratory Respiratory effort: normal Respiratory: bilateral: diminished, rales (bibasilar) - Cardiovascular Rhythm: irregularly irregular (with tachycardia) Heart Sounds: Present: S1 & S2 - Extremities Extremity abnormal: edema (in BLE and BUE) - Abdominal General gastrointestinal: soft, non-tender, hypoactive bowel sounds, other (wound vac, colostomy bag and drain noted) - Psychiatric Psychiatric: other (unable to assess because patient is intubated and sedated) - Neurologic Neurologic: other (patient is intubated and sedated) Results - Labs CBC & Chem 7: 10/17/19 04:08 10/17/19 04:08 Labs: Laboratory Last Values WBC 14.6 K/mm3 (4.5-11.0) H 10/16/19 09:20 RBC 2.70 M/mm3 (3.65-5.03) L 10/16/19 09:20 Hgb 8.1 gm/dl (11.8-15.2) L 10/16/19 09:20 Hct 25.2 % (35.5-45.6) L 10/16/19 09:20 MCV 93 fl (84-94) 10/16/19 09:20 MCH 30 pg (28-32) 10/16/19 09:20 MCHC 32 % (32-34) 10/16/19 09:20 RDW 16.7 % (13.2-15.2) H 10/16/19 09:20 Plt Count 197 K/mm3 (140-440) 10/16/19 09:20 Add Manual Diff Complete 10/16/19 09:20 Total Counted 100 10/16/19 09:20 Seg Neutrophils % Hot Billet Shear Operator 10/09/19 10:52 Seg Neuts % (Manual) 79.0 % (40.0-70.0) H 10/16/19 09:20 Band Neutrophils % 12.0 % 10/16/19 09:20 Lymphocytes % (Manual) 4.0 % (13.4-35.0) L 10/16/19 09:20 Reactive Lymphs % (Man) 0 % 10/16/19 09:20 Monocytes % (Manual) 2.0 % (0.0-7.3) 10/16/19 09:20 Eosinophils % (Manual) 0 % (0.0-4.3) 10/16/19 09:20 Basophils % (Manual) 0 % (0.0-1.8) 10/16/19 09:20 Metamyelocytes % 2.0 % 10/16/19 09:20 Myelocytes % 1.0 % 10/16/19 09:20 Promyelocytes % 0 % 10/16/19 09:20 Blast Cells % 0 % 10/16/19 09:20 Nucleated RBC % Not Reportable 10/16/19 09:20 Seg Neutrophils # Man 11.5 K/mm3 (1.8-7.7) H 10/16/19 09:20 Band Neutrophils # 1.8 K/mm3 10/16/19 09:20 Lymphocytes # (Manual) 0.6 K/mm3 (1.2-5.4) L 10/16/19 09:20 Abs React Lymphs (Man) 0.0 K/mm3 10/16/19 09:20 Monocytes # (Manual) 0.3 K/mm3 (0.0-0.8) 10/16/19 09:20 Eosinophils # (Manual) 0.0 K/mm3 (0.0-0.4) 10/16/19 09:20 Basophils # (Manual) 0.0 K/mm3 (0.0-0.1) 10/16/19 09:20 Metamyelocytes # 0.3 K/mm3 10/16/19 09:20 Myelocytes # 0.1 K/mm3 10/16/19 09:20 Promyelocytes # 0.0 K/mm3 10/16/19 09:20 Blast Cells # 0.0 K/mm3 10/16/19 09:20 WBC Morphology Not Reportable 10/16/19 09:20 Hypersegmented Neuts Not Reportable 10/16/19 09:20 Hyposegmented Neuts Not Reportable 10/16/19 09:20 Hypogranular Neuts Not Reportable 10/16/19 09:20 Smudge Cells Not Reportable 10/16/19 09:20 Toxic Granulation Not Reportable 10/16/19 09:20 Toxic Vacuolation Not Reportable 10/16/19 09:20 Dohle Bodies Not Reportable 10/16/19 09:20 Pelger-Huet Anomaly Not Reportable 10/16/19 09:20 Andres Rods Not Reportable 10/16/19 09:20 Platelet Estimate Consistent w auto 10/16/19 09:20 Clumped Platelets Not Reportable 10/16/19 09:20 Plt Clumps, EDTA Not Reportable 10/16/19 09:20 Large Platelets Not Reportable 10/16/19 09:20 Giant Platelets Not Reportable 10/16/19 09:20 Platelet Satelliting Not Reportable 10/16/19 09:20 Plt Morphology Comment Not Reportable 10/16/19 09:20 RBC Morphology Not Reportable 10/16/19 09:20 Dimorphic RBCs Not Reportable 10/16/19 09:20 Polychromasia Few 10/16/19 09:20 Hypochromasia Few 10/16/19 09:20 Poikilocytosis Not Reportable 10/16/19 09:20 Anisocytosis Not Reportable 10/16/19 09:20 Microcytosis Not Reportable 10/16/19 09:20 Macrocytosis Not Reportable 10/16/19 09:20 Spherocytes Not Reportable 10/16/19 09:20 Pappenheimer Bodies Not Reportable 10/16/19 09:20 Sickle Cells Not Reportable 10/16/19 09:20 Target Cells Few 10/16/19 09:20 Tear Drop Cells Not Reportable 10/16/19 09:20 Ovalocytes Not Reportable 10/16/19 09:20 Helmet Cells Not Reportable 10/16/19 09:[address] Bodies Not Reportable 10/16/19 09:20 [place] Rings Not Reportable 10/16/19 09:20 Bishnu Cells Not Reportable 10/16/19 09:20 Bite Cells Not Reportable 10/16/19 09:20 Crenated Cell Not Reportable 10/16/19 09:20 Elliptocytes Not Reportable 10/16/19 09:20 Acanthocytes (Spur) Not Reportable 10/16/19 09:20 Rouleaux Not Reportable 10/16/19 09:20 Hemoglobin C Crystals Not Reportable 10/16/19 09:20 Schistocytes Not Reportable 10/16/19 09:20 Malaria parasites Not Reportable 10/16/19 09:20 Toni Bodies Not Reportable 10/16/19 09:20 Hem Pathologist Commnt No 10/16/19 09:20 POC ABG pH 7.363 (7.35-7.45) 10/16/19 06:53 ABG pH 7.296 pH Units (7.350-7.450) L 10/15/19 05:30 POC ABG pCO2 47.0 (35-45) H 10/16/19 06:53 ABG pCO2 47.7 mm Hg 10/15/19 05:30 POC ABG pO2 80 (80-105) 10/16/19 06:53 ABG pO2 114.7 mm Hg (80.0-90.0) H 10/15/19 05:30 POC ABG HCO3 26.7 (22-26 mml/L) 10/16/19 06:53 ABG HCO3 22.7 mmol/L (20.0-26.0) 10/15/19 05:30 POC ABG Total CO2 28 (23-27mmol/L) 10/16/19 06:53 POC ABG O2 Sat 95 10/16/19 06:53 ABG O2 Saturation 97.8 % (95.0-99.0) 10/15/19 05:30 ABG O2 Content 12.2 (0.0-44) 10/15/19 05:30 POC ABG Base Excess 1 ((-2) - (+3)mmol/L) 10/16/19 06:53 ABG Base Excess -3.7 mmol/L (-2.0-3.0) L 10/15/19 05:30 ABG Hemoglobin 8.9 gm/dl (14.0-18.0) L 10/15/19 05:30 ABG Carboxyhemoglobin 1.2 % (0.0-5.0) 10/15/19 05:30 ABG Methemoglobin 0.6 % (0.0-1.5) 10/15/19 05:30 Oxyhemoglobin 96.0 % (95.0-99.0) 10/15/19 05:30 FiO2 45 % 10/16/19 06:53 Sodium 150 mmol/L (137-145) H 10/16/19 04:44 Potassium 3.9 mmol/L (3.6-5.0) 10/16/19 04:44 Chloride 115.8 mmol/L (98-107) H 10/16/19 04:44 Carbon Dioxide 26 mmol/L (22-30) D 10/16/19 04:44 Anion Gap 12 mmol/L 10/16/19 04:44 BUN 35 mg/dL (9-20) H 10/16/19 04:44 Creatinine 0.9 mg/dL (0.8-1.5) 10/16/19 04:44 Estimated GFR > 60 ml/min 10/16/19 04:44 BUN/Creatinine Ratio 39 % 10/16/19 04:44 Glucose 129 mg/dL (75-100) H 10/16/19 04:44 POC Glucose 129 (70-105) H 10/16/19 05:24 Hemoglobin A1c 5.7 % (4-6) 10/06/19 05:36 Lactic Acid 1.10 mmol/L (0.7-2.0) 10/13/19 04:20 Calcium 7.3 mg/dL (8.4-10.2) L 10/16/19 04:44 Phosphorus 1.80 mg/dL (2.5-4.5) L D 10/16/19 04:44 Magnesium 1.70 mg/dL (1.7-2.3) 10/16/19 04:44 Total Bilirubin 0.30 mg/dL (0.1-1.2) 10/15/19 04:32 Direct Bilirubin 0.3 mg/dL (0-0.2) H 10/12/19 09:30 Indirect Bilirubin 0.3 mg/dL 10/12/19 09:30 AST 72 units/L (5-40) H 10/15/19 04:32 ALT 31 units/L (7-56) 10/15/19 04:32 Alkaline Phosphatase 68 units/L (35-129) 10/15/19 04:32 Ammonia 49.0 umol/L (25-60) 10/13/19 04:20 Troponin T < 0.010 ng/mL (0.00-0.029) 10/09/19 17:23 C-Reactive Protein 30.60 mg/dL (0.00-1.30) H 10/15/19 04:32 Serum Total Protein 5.2 g/dL (6.1-8.1) L 10/11/19 09:00 Total Protein 4.0 g/dL (6.3-8.2) L D 10/15/19 04:32 Albumin 1.7 g/dL (3.9-5) L 10/15/19 04:32 Albumin/Globulin Ratio 0.7 % 10/15/19 04:32 Prealbumin 0.030 g/L (0.200-0.400) L 10/15/19 04:32 Xvhxo-4-Sfuspuaaj 0.9 g/dL (0.2-0.3) H 10/11/19 09:00 Vajwb-2-Xfpoidfxb 1.0 g/dL (0.5-0.9) H 10/11/19 09:00 Beta Globulins 0.3 g/dL (0.2-0.5) 10/11/19 09:00 Gamma Globulins 0.7 g/dL (0.8-1.7) L 10/11/19 09:00 Abnorm Protein Band 1 see below 10/11/19 09:00 PEP Interpretation see below H 10/11/19 09:00 Triglycerides 114 mg/dL (2-149) 10/15/19 04:32 Urine Color Obdulia (Yellow) 10/11/19 06:23 Urine Turbidity Cloudy (Clear) 10/11/19 06:23 Urine pH 5.0 (5.0-7.0) 10/11/19 06:23 Ur Specific [place] 1.018 (1.003-1.030) 10/11/19 06:23 Urine Protein 30 mg/dl mg/dL (Negative) 10/11/19 06:23 Urine Glucose (UA) Neg mg/dL (Negative) 10/11/19 06:23 Urine Ketones Neg mg/dL (Negative) 10/11/19 06:23 Urine Blood Mod (Negative) 10/11/19 06:23 Urine Nitrite Neg (Negative) 10/11/19 06:23 Urine Bilirubin Neg (Negative) 10/11/19 06:23 Urine Urobilinogen < 2.0 mg/dL (<2.0) 10/11/19 06:23 Ur Leukocyte Esterase Neg (Negative) 10/11/19 06:23 Urine WBC (Auto) 3.0 /HPF (0.0-6.0) 10/11/19 06:23 Urine RBC (Auto) 3.0 /HPF (0.0-6.0) 10/11/19 06:23 Urine Bacteria (Auto) 1+ /HPF (Negative) 10/11/19 06:23 Urine Eosinophils None seen (None Seen) 10/11/19 06:23 Urine Creatinine 116.8 mg/dL (0.1-20.0) H 10/11/19 06:23 Urine Creatinine 118.2 mg/dL (0.1-20.0) H 10/11/19 06:23 Protein/Creatinin Ratio 0.89 10/11/19 06:23 Urine Sodium 14 mmol/L 10/11/19 06:23 Urine Total Protein 104 mg/dL (5-11.8) H 10/11/19 06:23 Urine Total Protein 105 mg/dL (5-11.8) H 10/11/19 06:23 Blood Type A POSITIVE 10/16/19 11:58 Antibody Screen Negative 10/13/19 13:20 Crossmatch See Detail 10/16/19 11:58 Active Medications - Current Medications Current Medications: Generic Name Dose Route Start Last Admin Trade Name Freq PRN Reason Stop Dose Admin Acetaminophen 650 mg 10/15/19 10:00 Tylenol ND Q4H PRN Pain MILD(1-3)/Fever >100.5/ROMANO Albuterol 2.5 mg 10/05/19 21:36 Proventil IH Q4HRT PRN Shortness Of Breath Albuterol/Ipratropium 1 ampul 10/06/19 02:00 10/16/19 08:01 Duoneb *Not For Prn Use* IH 1 ampul Q6HRT VERÓNICA Administration Arformoterol Tartrate 15 mcg 10/06/19 08:30 10/16/19 08:01 Brojessy Nebu IH 15 mcg Q12HRT VERÓNICA Administration Budesonide 0.5 mg 10/07/19 12:20 10/16/19 08:02 Pulmicort IH 0.5 mg Q12HRT VERÓNICA Administration Digoxin 0.125 mg 10/15/19 17:00 10/16/19 09:24 Lanoxin IV 0.125 mg QDAY VERÓNICA Administration Enoxaparin Sodium 40 mg 10/16/19 22:00 Enoxaparin SUB-Q QDAY@2200 VERÓNICA Fentanyl 50 mcg 10/14/19 02:19 Sublimaze IV Q10MIN PRN ANALGESIA Fluconazole 200 mls @ 100 mls/hr 10/12/19 11:00 10/16/19 09:25 Diflucan IV 100 mls/hr Q24HR VERÓNICA Administration Protocol Fentanyl Citrate 2,000 mcg in 100 mls @ 6.85 mls/hr 10/14/19 03:00 10/16/19 07:52 Fentanyl Drip Premix IV 1 mcg/kg/hr TITR VERÓNICA 6.85 mls/hr Administration Protocol 1 MCG/KG/HR Lactated Ringer's 500 mls @ 999 mls/hr 10/15/19 11:00 Lactated Ringers IV DIRECT VERÓNICA Lactated Ringer's 1,000 mls @ 250 mls/hr 10/15/19 11:00 10/16/19 07:55 Lactated Ringers IV 250 mls/hr DIRECT VERÓNICA Administration Piperacillin Sod/Tazobactam Sod 4.5 gm in 100 mls @ 200 mls/hr 10/15/19 13:00 10/16/19 06:19 Zosyn/Ns 4.5gm/100ml IV 200 mls/hr Q6HR VERÓNICA Administration Protocol Amino Acids/Electrolytes/Dextrose 2,400 mls @ 100 mls/hr 10/15/19 20:00 10/15/19 20:15 Tpn Adult IV 10/16/19 19:59 100 mls/hr DAILY@2000 VERÓNICA Administration Protocol Amiodarone HCl 900 mg/ 500 mls @ 33.333 mls/hr 10/15/19 16:00 10/15/19 22:15 Dextrose IV 0.5 mg/min DIRECT VERÓNICA 16.667 mls/hr Infusion Protocol 1 MG/MIN Magnesium Sulfate 4 gm in 100 mls @ 25 mls/hr 10/16/19 09:00 10/16/19 08:49 Magnesium Sulfate 4gm/100ml IV 10/16/19 12:59 25 mls/hr ONCE ONE Administration Sodium Chloride 500 mls @ 0 mls/hr 10/16/19 12:00 Nacl 0.9% 500 Ml IV 10/16/19 19:00 ONCE NR As Directed Amino Acids/Electrolytes/Dextrose 2,400 mls @ 100 mls/hr 10/16/19 20:00 Tpn Adult IV 10/17/19 19:59 DAILY@2000 [facility] Protocol Sodium Chloride 500 mls @ 0 mls/hr 10/16/19 13:00 Nacl 0.9% 500 Ml IV 10/16/19 13:01 ONCE ONE As Directed Insulin Human Lispro 0 unit 10/14/19 12:00 10/16/19 06:09 Humalog SUB-Q Not Given Q6HR [facility] Protocol Metoprolol Tartrate 2.5 mg 10/15/19 15:34 10/16/19 09:50 Metoprolol IV 2.5 mg Q4HR PRN Administration HR >130 Multi-Ingred Cream/Lotion/Oil/Oint 1 applic 10/14/19 02:19 Artificial Tears Ophth Oint OU Q4HR PRN Dry Eye(s) Ondansetron HCl 4 mg 10/05/19 21:22 10/11/19 18:20 Zofran IV 4 mg Q3H PRN Administration Nausea And Vomiting Pantoprazole Sodium 40 mg 10/15/19 10:00 10/16/19 09:24 Protonix IV 40 mg QDAY VERÓNICA Administration Sodium Chloride 10 ml 10/05/19 21:22 Sodium Chloride Flush Syringe 10 Ml IV PRN PRN LINE FLUSH Nutrition/Malnutrition Assess - Dietary Evaluation Nutrition/Malnutrition Findings: Nutrition Notes Start: 10/08/19 11:36 Freq: Status: Active Protocol: Document 10/16/19 10:21 JENN (Rec: 10/16/19 11:26 JENN [id number]) Co-Sign 10/16/19 10:21 LP Nutrition Notes Initial or Follow up Reassessment Current Diagnosis Acute Kidney Injury,COPD, Hypertension Other Pertinent Diagnosis intra-abdominal infection, disruption of bowel anastomosis, LE edema Current Diet CPN at 100 ml/hr Labs/Tests Na 151 BUN 35 BG 129 Pertinent Medications Lactated Ringer's solution 250 ml/hr K Phos 125 ml/hr Height 6 ft Weight 151.8 kg [place] Body Weight (kg) 80.90 BMI 45.3 Weight change and time frame Wt change noted. D/t excess fluid. Weight Status Morbidly Obese Subjective/Other Information CPN day 3. Decreased protein d /t inadequate kidney function. Percent of energy/protein needs met: 72%/99% Burn Absent Trauma Absent GI Symptoms None Current % PO Negligible Minimum of two criteria No Fluid Accumulation Mild (non-severe) #2 Nutrition Diagnosis Inadequate oral intake Diagnosis Progress(for reassessment Continues documentation) #1 Nutrition Diagnosis Increased nutrient needs ( specify in comment below) Diagnosis Progress(for reassessment Continues documentation) Is patient on ventilator? Yes Is Patient Ambulatory and/or Out of Bed No REE-([facility]-confined to bed) 2866.752 Kcal/Kg value to use for calculation 14 Approximate Energy Requirements Using 2125 kcal/Kg Calculation Used for Recommendations Kcal/kg Additional Notes Protein: 202g (up to 2.5 g/kg IBW 80.9 kg) Pay attention to renal issues Fluid: 1 ml/kcal or per MD Nutrition Intervention Change Diet Order: continue CPN Nutrition Support: CPN at 100 ml/hr: 6.3% AA, 60 mEq K, 8 mEq mg, 25 mmol phos, 25:75 Cl:Acetate, MVI, MTE, Thiamine Kcal 1,280 Protein (gm) 150 Carbohydrates (gm) 200 Fluid (mL) 2,400 Fiber (gm) 0 Goal #1 Meet energy and protein needs as best as possible via CPN Anticipated Discharge Needs: unable to determine at this time Follow-Up By: 10/17/19 Additional Comments Labs in AM: BMP, Mg, Phos
--- NOTE | 2019-10-16 13:14 | Progress Note ---
Assessment and Plan Cultures 10/10/2019 surgical culture: No growth at 72 hours 10/13/2019 tracheal aspirate culture: No growth 10/13/2019 peritoneal fluid: Enterococcus species (S to Penicillin, Vancomycin) 10/15/2019 blood culture: in process Assessment: 54 yo M PMhx CAD, COPD, recent complicated course of bowel perforation after a colonoscopy admitted with surgical site dehiscence of the fascia. Now with possibly infected fluid culture: 1. Acute sepsis - present with leukocytosis and tachycardia. Most likely secondary to fluid collection/abscess in the abdomen. 2. Intra-abdominal infection from anastomotic leak - s/p ex lap with closure of abdominal wall and wound vac placement (10/05/2019); s/p Re-exploration, washout, transection of colon, Abthera placement - 10/13/2019. s/p re- exploration and colostomy creation on 10/16/2019, intra-operatively was found to have "Small amount of continued leak from the old anastomotic site. Some contamination still present. Bowel was all viable" 3. COPD 4. Penicillin allergy - likely not a true allergy, reviewed EMR for previous exposure to PCNs, patient received several days of Zosyn in 2018 without issue. Recs: - continue IV Zosyn 4.5 gm q6 hrs - continue fluconazole 400mg q24h - follow up new blood cultures, fever and WBC Discussed with and sister at bedside. Julianna Pineda MD, FACP [facility] ([facility] C: [phone] O: [phone] F: [phone] Subjective Date of service: 10/16/19 Principal diagnosis: acute renal failure Interval history: Had fever again last night. Went to OR today - found to have "Small amount of continued leak from the old anastomotic site. Some contamination still present. Bowel was all viable." Also had colostomy creation. Remains intubated, sedated. and sister at bedside. Objective - Exam Narrative Exam: Physical Exam: Constitutional: sedated, intubated Head, Ears, Nose: Normocephalic, atraumatic. External ears, nose normal Eyes: Conjunctivae/corneas clear. No icterus. No ptosis. Neck: intubated Oral: intubated Cardiovascular: S1, S2 normal. Respiratory: Good air entry, clear to auscultation bilaterally GI: Midline abdominal VAC. bowel sounds absent. Colostomy + Musculoskeletal: anasarca + Skin: No rash or abscess Hem/Lymphatic: No palpable cervical or supraclavicular nodes. No lymphangitis Psych: no agitation Neurological: sedated, intubated, on vent - Constitutional Vitals: Vital Signs Temp Pulse Resp BP Pulse Ox 99.9 F H 150 H 22 141/74 95 10/16/19 08:00 10/16/19 09:50 10/16/19 09:00 10/16/19 09:50 10/16/19 09:00 Temperature -Last 24 Hours Temperature 99.9 F Temperature 102.4 F Temperature 97.5 F Temperature 98.8 F - Labs CBC & Chem 7: 10/16/19 09:20 10/16/19 04:44 Labs: Abnormal lab results 10/11/19 10/13/19 10/15/19 Range/Units 09:00 13:20 17:23 WBC (4.5-11.0) K/mm3 RBC (3.65-5.03) M/mm3 Hgb (11.8-15.2) gm/dl Hct (35.5-45.6) % RDW (13.2-15.2) % Seg Neuts % (Manual) (40.0-70.0) % Lymphocytes % (Manual) (13.4-35.0) % Seg Neutrophils # Man (1.8-7.7) K/mm3 Lymphocytes # (Manual) (1.2-5.4) K/mm3 POC ABG pCO2 (35-45) Sodium (137-145) mmol/L Chloride (98-107) mmol/L BUN (9-20) mg/dL Glucose (75-100) mg/dL POC Glucose 106 H (70-105) Calcium (8.4-10.2) mg/dL Phosphorus (2.5-4.5) mg/dL Serum Total Protein 5.2 L (6.1-8.1) g/dL Albumin 1.9 L (3.8-4.8) g/dL Yiqam-2-Bolojbadd 0.9 H (0.2-0.3) g/dL Yhbkv-1-Kishmsejs 1.0 H (0.5-0.9) g/dL Gamma Globulins 0.7 L (0.8-1.7) g/dL PEP Interpretation see below H Crossmatch See Detail 10/16/19 10/16/19 10/16/19 Range/Units 00:07 04:44 05:24 WBC (4.5-11.0) K/mm3 RBC (3.65-5.03) M/mm3 Hgb (11.8-15.2) gm/dl Hct (35.5-45.6) % RDW (13.2-15.2) % Seg Neuts % (Manual) (40.0-70.0) % Lymphocytes % (Manual) (13.4-35.0) % Seg Neutrophils # Man (1.8-7.7) K/mm3 Lymphocytes # (Manual) (1.2-5.4) K/mm3 POC ABG pCO2 (35-45) Sodium 150 H (137-145) mmol/L Chloride 115.8 H (98-107) mmol/L BUN 35 H (9-20) mg/dL Glucose 129 H (75-100) mg/dL POC Glucose 119 H 129 H (70-105) Calcium 7.3 L (8.4-10.2) mg/dL Phosphorus 1.80 L D (2.5-4.5) mg/dL Serum Total Protein (6.1-8.1) g/dL Albumin (3.8-4.8) g/dL Abpuf-3-Zemkhxohk (0.2-0.3) g/dL Vkzan-7-Dfvzmbyug (0.5-0.9) g/dL Gamma Globulins (0.8-1.7) g/dL PEP Interpretation Crossmatch 10/16/19 10/16/19 10/16/19 Range/Units 06:53 09:20 11:58 WBC 14.6 H (4.5-11.0) K/mm3 RBC 2.70 L (3.65-5.03) M/mm3 Hgb 8.1 L (11.8-15.2) gm/dl Hct 25.2 L (35.5-45.6) % RDW 16.7 H (13.2-15.2) % Seg Neuts % (Manual) 79.0 H (40.0-70.0) % Lymphocytes % (Manual) 4.0 L (13.4-35.0) % Seg Neutrophils # Man 11.5 H (1.8-7.7) K/mm3 Lymphocytes # (Manual) 0.6 L (1.2-5.4) K/mm3 POC ABG pCO2 47.0 H (35-45) Sodium (137-145) mmol/L Chloride (98-107) mmol/L BUN (9-20) mg/dL Glucose (75-100) mg/dL POC Glucose (70-105) Calcium (8.4-10.2) mg/dL Phosphorus (2.5-4.5) mg/dL Serum Total Protein (6.1-8.1) g/dL Albumin (3.8-4.8) g/dL Oqigd-4-Gihpoymmp (0.2-0.3) g/dL Oznks-4-Dswipxjlb (0.5-0.9) g/dL Gamma Globulins (0.8-1.7) g/dL PEP Interpretation Crossmatch See Detail
--- NOTE | 2019-10-16 15:10 | Post Operative Note ---
Date of procedure: 10/16/19 (dictation:[id number]) Pre-op diagnosis: 1) colon perforation 2) fascial dehiscence 3) intra-abdominal infection Post-op diagnosis: same Findings: Small amount of continued leak from the old anastomotic site. Some contamination still present. Bowel was all viable. Some omental ischemia Procedure: 1) Abdominal washout 2) Partial Omentectomy 3) Partial Colectomy 4) Colostomy Creation 5) AbThera Placement IVF 1500cc EBL ~100cc UOP - 150cc Anesthesia: GETA Surgeon: ANKITA GAO Electric Mule Operator: TOÑO ROMO Estimated blood loss: 50-100ml Pathology: list (portions of omentum and colon) Specimen disposition: to lab Condition: stable Disposition: ICU
[2019-10-16] MEDS: SODIUM CHLORIDE 0.45% 1000 ML 1,000 ML IV SCH (15:38)
--- NOTE | 2019-10-16 15:43 | Progress Note ---
Assessment and Plan Sepsis Severe abdominal pain s/p exploratory laparotomy, abdominal washout, closure of abdominal fascia with wound vac placement. Rapid atrial fibrillation/flutter treated with adenosine x1 on amiodarone and digoxin Recent colon resection for bowel perforation following a colonoscopy Atypical chest pain chest CT reports left lower lobe pleural effusion with suspected left upper lobe pneumonia. troponins are normal Hx of [place]/CAD PCI of the circumflex and second vessel POBA of the distal LAD occlusion. Left ventricle fraction 45-50%. Tobacco abuse COPD Hypertension Hyperlipidemia Recommend: Continue intravenous amiodarone and digoxin, for atrial fibrillation suppression and rate control. We will add intravenous Diltiazem for additional rate control. Subjective Date of service: 10/16/19 Principal diagnosis: acute renal failure Interval history: Patient return from surgery. Rapid atrial fibrillation on telemetry. Objective Vital Signs Temp Pulse Pulse Pulse Pulse Resp Resp 10/16/19 15:36 98.1 F 10/16/19 15:00 106 H 21 10/16/19 14:59 113 H 10/16/19 14:57 106 H 10/16/19 09:50 150 H 10/16/19 09:24 147 H 10/16/19 09:00 145 H 22 10/16/19 08:36 135 H 10/16/19 08:30 156 H 22 10/16/19 08:00 99.9 F H 145 H 145 H 25 H 10/16/19 07:57 132 H 10/16/19 07:30 132 H 22 10/16/19 07:00 124 H 21 10/16/19 06:39 145 H 10/16/19 06:30 137 H 19 10/16/19 06:00 144 H 25 H 10/16/19 05:30 120 H 24 10/16/19 05:00 122 H 22 10/16/19 04:30 120 H 21 10/16/19 04:00 121 H 129 H 21 10/16/19 03:53 121 H 10/16/19 03:33 102.4 F H 10/16/19 03:30 128 H 21 10/16/19 03:00 121 H 21 10/16/19 02:46 122 H 20 10/16/19 02:45 119 H 118 H 20 10/16/19 02:30 128 H 22 10/16/19 02:16 122 H 24 10/16/19 02:00 128 H 21 10/16/19 01:45 136 H 22 10/16/19 01:30 128 H 20 10/16/19 01:15 135 H 20 10/16/19 01:00 127 H 22 10/16/19 00:45 127 H 21 10/16/19 00:30 128 H 21 10/16/19 00:15 127 H 20 10/16/19 00:00 126 H 20 10/15/19 23:56 135 H 23 10/15/19 23:54 129 H 20 10/15/19 23:49 127 H 10/15/19 23:45 137 H 27 H 10/15/19 23:31 97.5 F L 10/15/19 23:30 134 H 20 10/15/19 23:15 134 H 21 10/15/19 23:00 134 H 21 10/15/19 22:45 136 H 20 10/15/19 22:30 145 H 21 10/15/19 22:15 122 H 21 10/15/19 22:00 129 H 20 10/15/19 21:45 129 H 19 10/15/19 21:30 129 H 20 10/15/19 21:16 129 H 17 10/15/19 21:00 129 H 21 10/15/19 20:45 128 H 21 10/15/19 20:30 128 H 20 10/15/19 20:16 121 H 12 10/15/19 20:00 98.8 F 119 H 129 H 20 10/15/19 19:50 121 H 10/15/19 19:46 112 H 124 H 120 H 14 20 10/15/19 19:30 105 H 16 10/15/19 19:16 107 H 25 H 10/15/19 19:00 112 H 21 10/15/19 18:46 120 H 19 10/15/19 18:30 120 H 19 10/15/19 18:16 120 H 19 10/15/19 18:00 129 H 19 10/15/19 17:45 128 H 20 10/15/19 17:30 138 H 18 10/15/19 17:15 148 H 20 10/15/19 17:00 137 H 33 H 10/15/19 16:46 151 H 28 H 10/15/19 16:30 149 H 17 10/15/19 16:23 150 H 10/15/19 16:19 149 H 10/15/19 16:15 143 H 19 10/15/19 16:00 159 H 156 H 19 10/15/19 15:45 163 H 20 Resp BP Pulse Ox 10/16/19 15:36 10/16/19 15:00 154/67 10/16/19 14:59 116/60 100 10/16/19 14:57 141/74 10/16/19 09:50 141/74 10/16/19 09:24 141/74 10/16/19 09:00 141/74 95 10/16/19 08:36 25 H 10/16/19 08:30 134/84 100 10/16/19 08:00 140/73 98 10/16/19 07:57 140/73 99 10/16/19 07:30 151/73 96 10/16/19 07:00 140/78 96 10/16/19 06:39 140/78 10/16/19 06:30 140/78 95 10/16/19 06:00 145/80 96 10/16/19 05:30 134/71 95 10/16/19 05:00 140/61 95 10/16/19 04:30 144/60 96 10/16/19 04:00 160/67 96 10/16/19 03:53 135/65 97 10/16/19 03:33 10/16/19 03:30 156/69 95 10/16/19 03:00 135/65 97 10/16/19 02:46 135/65 96 10/16/19 02:45 20 10/16/19 02:30 146/64 96 10/16/19 02:16 146/64 96 10/16/19 02:00 148/87 97 10/16/19 01:45 130/69 96 10/16/19 01:30 138/76 96 10/16/19 01:15 130/78 97 10/16/19 01:00 133/74 97 10/16/19 00:45 135/75 96 10/16/19 00:30 129/77 96 10/16/19 00:15 129/69 97 10/16/19 00:00 115/79 96 10/15/19 23:56 115/79 96 10/15/19 23:54 99 10/15/19 23:49 115/79 97 10/15/19 23:45 115/79 97 10/15/19 23:31 10/15/19 23:30 128/69 96 10/15/19 23:15 137/72 97 10/15/19 23:00 132/73 96 10/15/19 22:45 138/78 96 10/15/19 22:30 131/71 96 10/15/19 22:15 122/59 97 10/15/19 22:00 119/60 97 10/15/19 21:45 117/55 97 10/15/19 21:30 119/62 97 10/15/19 21:16 119/57 97 10/15/19 21:00 122/62 97 10/15/19 20:45 115/57 96 10/15/19 20:30 122/62 100 10/15/19 20:16 121/58 98 10/15/19 20:00 142/59 99 10/15/19 19:50 121/58 98 10/15/19 19:46 20 142/59 98 10/15/19 19:30 133/52 99 10/15/19 19:16 130/56 98 10/15/19 19:00 117/57 99 10/15/19 18:46 117/57 98 10/15/19 18:30 131/59 99 10/15/19 18:16 131/59 98 10/15/19 18:00 113/62 98 10/15/19 17:45 113/62 98 10/15/19 17:30 109/59 98 10/15/19 17:15 109/60 98 10/15/19 17:00 113/62 98 10/15/19 16:46 120/63 98 10/15/19 16:30 123/63 98 10/15/19 16:23 116/60 97 10/15/19 16:19 116/60 10/15/19 16:15 116/60 98 10/15/19 16:00 122/56 97 10/15/19 15:45 122/56 98 - Physical Examination General: Other (intubated) Cardiac: Positive: irregularly irregular - Labs and Meds CBC 10/16/19 Range/Units 09:20 WBC 14.6 H (4.5-11.0) K/mm3 RBC 2.70 L (3.65-5.03) M/mm3 Hgb 8.1 L (11.8-15.2) gm/dl Hct 25.2 L (35.5-45.6) % Plt Count 197 (140-440) K/mm3 Comprehensive Metabolic Panel 10/11/19 10/16/19 Range/Units 09:00 04:44 Sodium 150 H (137-145) mmol/L Potassium 3.9 (3.6-5.0) mmol/L Chloride 115.8 H (98-107) mmol/L Carbon Dioxide 26 D (22-30) mmol/L BUN 35 H (9-20) mg/dL Creatinine 0.9 (0.8-1.5) mg/dL Glucose 129 H (75-100) mg/dL Calcium 7.3 L (8.4-10.2) mg/dL Albumin 1.9 L (3.8-4.8) g/dL
--- NOTE | 2019-10-16 15:56 | Post Anesthesia Evaluation ---
- Post Anesthesia Evaluation Patient Participated: No Airway Patent: Yes Stable Respiratory Function: Yes Nausea/Vomiting: No Temp > 96.8F: Yes Pain Manageable: Yes Adequeate Hydration: Yes Anesthesia Complications: No Block Receding Appropriately: Not Applicable Patient on Ventilator: Yes (Was on vent preop)
[2019-10-16] MEDS ORDERED: dilTIAZem 25 MG/5 ML INJ IV ONE (16:00)
[2019-10-16] MEDS: dilTIAZem/D5W 100 MG/100 ML BAG IV SCH (16:51)
[2019-10-16] MEDS: AMIODARONE 900 MG in DEXTROSE 5% IN WATER 482 ML IV SCH (17:37)
[2019-10-16] MEDS ORDERED: TOTAL PARENTERAL NUTRITION 2,400 ML IV SCH (20:00)
[2019-10-16] MEDS ORDERED: SODIUM BICARB 8.4% 50 MEQ/50 ML SYRINGE IV ONE (21:16)
[2019-10-16] MEDS: ENOXAPARIN 40 MG/0.4 ML INJ SUB-Q SCH (23:07)
[2019-10-16] MEDS: ACETAMINOPHEN 650 MG RECT SUPP PR PRN (23:58)
[2019-10-17] MEDS: INSULIN LISPRO 100 UNIT/ML SUB-Q SCH ×4 (01:11→19:40)
[2019-10-17] MEDS: IPRATROPIUM/ALBUTEROL SULFATE 3 ML AMPUL.NEB IH SCH ×4 (02:52→19:57)
[2019-10-17 04:37] LABS: Hematocrit 31.2 % (35.5-45.6); Mean Corpuscular HGB Conc 32 % (32-34); Mean Corpuscular Volume 93 fl (84-94); Platelet Count 188 K/mm3 (140-440); Red Blood Count 3.35 M/mm3 (3.65-5.03); Red Cell Distribution Width 16.1 % (13.2-15.2)
[2019-10-17] MEDS: SODIUM CHLORIDE 0.45% 1000 ML 1,000 ML IV SCH ×2 (04:51→21:22)
[2019-10-17] MEDS: ACETAMINOPHEN 650 MG RECT SUPP PR PRN ×2 (04:51→08:18)
[2019-10-17 04:58] LABS: BUN/Creatinine Ratio 45; Blood Urea Nitrogen 36 mg/dL (9-20); Calcium 6.9 mg/dL (8.4-10.2); Hemolysis Index 7
[2019-10-17] MEDS: PIPERACIL/TAZOBACTA 4.5/NS 100 4.5 GM/100 ML VIAL IV SCH ×3 (06:34→19:27)
[2019-10-17] MEDS: BUDESONIDE 0.5 MG/2 ML NEBU IH SCH ×2 (07:48→19:57)
[2019-10-17] MEDS: ARFORMOTEROL 15 MCG/2 ML NEBU IH SCH ×2 (07:48→19:57)
[2019-10-17] MEDS: SODIUM CHLORIDE 0.45% 1000 ML 1,000 ML IV PRN ×2 (09:22→19:26)
[2019-10-17] MEDS: DIGOXIN 0.5 MG/2 ML INJ IV SCH (09:30)
[2019-10-17] MEDS: FLUCONAZOLE 400 MG 200 ML IV SCH (09:33)
[2019-10-17] MEDS: fentaNYL DRIP Premix 2,000 MCG/100 ML BAG IV SCH (09:33)
[2019-10-17] MEDS: PANTOPRAZOLE 40 MG INJ IV SCH (09:34)
--- NOTE | 2019-10-17 10:12 | Progress Note ---
Assessment and Plan - Patient Problems (1) Dehiscence of closure of fascia, superficial or muscular Current Visit: No Status: Acute Qualifiers: Encounter type: initial encounter Qualified Code(s): T81.32XA - Disruption of internal operation (surgical) wound, not elsewhere classified, initial encounter Plan to address problem: Pt stable. s/p ex lap with closure of abdominal wall and wound vac placement (10/05) - POD#11; s/p Re-exploration, washout, transection of colon, Abthera placement - 10/13 - POD#3; s/p abd washout, partial omentectomy, partial colectomy with colostomy - 10/16 POD#1. Rec: 1) Neuro - sedated. Family states that he has not had a drink in 3 weeks. Perhaps withdrawal may not have been involved. Ativan currently held. 2) CV - BP may be low partial due to fluid replacements being held last night. Have ordered them to restart with 1/2NS due to the elevated NaCl. 3) Resp - Vent support 4) GI - Ostomy looks good. Drain output is not concerning in volume or appearance. Plan for take back to surgery on Tuesday at 2pm for possible closure and feeding tube placement. Patient had a recent episode of an upper GI bleed secondary to an NG tube. We will try to remove OG tube as soon as possible. 5) - BUN/Cr fairly stable. BUN slowly trending up. 6) ID - Abx per ID. Enterococcus on cultures. Fevers may be secondary to surgery yesterday. 7) Nutrition - TPN 8) DVT prophylaxis - SCDs. Start SQ heparin once OGT removed (recent GI bleed due to NGT) 9) Family -no family at bedside or waiting area this AM. Please call with questions. Subjective Date of service: 10/17/19 Patient Reports: Positive: fever (overnight), other (fluid replacements held o/n due to concerns about sodium level) Objective Vital Signs - 12hr 10/16/19 10/16/19 10/16/19 22:30 23:00 23:30 Temperature Pulse Rate 161 H 150 H 149 H Pulse Rate [ Anterior Bilateral Upper Lobe] Pulse Rate [ Anterior Left Throughout] Pulse Rate [ Anterior Right Throughout] Pulse Rate [ From Monitor] Respiratory 26 H 27 H 23 Rate Respiratory Rate [Anterior Bilateral Upper Lobe] Respiratory Rate [Anterior Left Throughout ] Respiratory Rate [Anterior Right Throughout] Blood Pressure 134/59 111/60 119/62 O2 Sat by Pulse 97 97 96 Oximetry 10/16/19 10/17/19 10/17/19 23:54 00:00 00:16 Temperature 102.8 F H Pulse Rate 160 H 150 H 160 H Pulse Rate [ Anterior Bilateral Upper Lobe] Pulse Rate [ Anterior Left Throughout] Pulse Rate [ Anterior Right Throughout] Pulse Rate [ 160 H From Monitor] Respiratory 24 23 25 H Rate Respiratory Rate [Anterior Bilateral Upper Lobe] Respiratory Rate [Anterior Left Throughout ] Respiratory Rate [Anterior Right Throughout] Blood Pressure 114/50 114/50 O2 Sat by Pulse 96 97 96 Oximetry 10/17/19 10/17/19 10/17/19 00:30 01:00 01:30 Temperature Pulse Rate 161 H 149 H 148 H Pulse Rate [ Anterior Bilateral Upper Lobe] Pulse Rate [ Anterior Left Throughout] Pulse Rate [ Anterior Right Throughout] Pulse Rate [ From Monitor] Respiratory 23 22 22 Rate Respiratory Rate [Anterior Bilateral Upper Lobe] Respiratory Rate [Anterior Left Throughout ] Respiratory Rate [Anterior Right Throughout] Blood Pressure 121/63 109/58 109/58 O2 Sat by Pulse 97 Oximetry 10/17/19 10/17/19 10/17/19 02:00 02:30 02:52 Temperature Pulse Rate 148 H 148 H Pulse Rate [ 137 H Anterior Bilateral Upper Lobe] Pulse Rate [ Anterior Left Throughout] Pulse Rate [ Anterior Right Throughout] Pulse Rate [ From Monitor] Respiratory 19 18 Rate Respiratory 21 Rate [Anterior Bilateral Upper Lobe] Respiratory Rate [Anterior Left Throughout ] Respiratory Rate [Anterior Right Throughout] Blood Pressure 102/51 100/53 O2 Sat by Pulse 97 98 Oximetry 10/17/19 10/17/19 10/17/19 02:53 03:00 03:30 Temperature Pulse Rate 146 H 139 H 147 H Pulse Rate [ Anterior Bilateral Upper Lobe] Pulse Rate [ Anterior Left Throughout] Pulse Rate [ Anterior Right Throughout] Pulse Rate [ From Monitor] Respiratory 22 20 Rate Respiratory Rate [Anterior Bilateral Upper Lobe] Respiratory Rate [Anterior Left Throughout ] Respiratory Rate [Anterior Right Throughout] Blood Pressure 100/53 106/56 106/56 O2 Sat by Pulse 95 94 95 Oximetry 10/17/19 10/17/19 10/17/19 03:42 04:00 04:30 Temperature 101.9 F H Pulse Rate 160 H 162 H Pulse Rate [ Anterior Bilateral Upper Lobe] Pulse Rate [ Anterior Left Throughout] Pulse Rate [ Anterior Right Throughout] Pulse Rate [ 149 H From Monitor] Respiratory 16 15 Rate Respiratory Rate [Anterior Bilateral Upper Lobe] Respiratory Rate [Anterior Left Throughout ] Respiratory Rate [Anterior Right Throughout] Blood Pressure 106/49 101/62 O2 Sat by Pulse 95 95 Oximetry 10/17/19 10/17/19 10/17/19 05:00 05:30 05:36 Temperature Pulse Rate 160 H 159 H 151 H Pulse Rate [ Anterior Bilateral Upper Lobe] Pulse Rate [ Anterior Left Throughout] Pulse Rate [ Anterior Right Throughout] Pulse Rate [ From Monitor] Respiratory 18 11 L Rate Respiratory Rate [Anterior Bilateral Upper Lobe] Respiratory Rate [Anterior Left Throughout ] Respiratory Rate [Anterior Right Throughout] Blood Pressure 97/45 104/58 105/54 O2 Sat by Pulse 95 94 97 Oximetry 10/17/19 10/17/19 10/17/19 06:00 06:30 07:00 Temperature Pulse Rate 137 H 135 H 160 H Pulse Rate [ Anterior Bilateral Upper Lobe] Pulse Rate [ Anterior Left Throughout] Pulse Rate [ Anterior Right Throughout] Pulse Rate [ From Monitor] Respiratory 17 20 20 Rate Respiratory Rate [Anterior Bilateral Upper Lobe] Respiratory Rate [Anterior Left Throughout ] Respiratory Rate [Anterior Right Throughout] Blood Pressure 105/54 105/48 108/50 O2 Sat by Pulse 94 96 96 Oximetry 10/17/19 10/17/19 10/17/19 07:14 07:30 07:38 Temperature 102.6 F H Pulse Rate 137 H 130 H Pulse Rate [ Anterior Bilateral Upper Lobe] Pulse Rate [ Anterior Left Throughout] Pulse Rate [ Anterior Right Throughout] Pulse Rate [ From Monitor] Respiratory 19 Rate Respiratory Rate [Anterior Bilateral Upper Lobe] Respiratory Rate [Anterior Left Throughout ] Respiratory Rate [Anterior Right Throughout] Blood Pressure 97/35 97/35 O2 Sat by Pulse 94 96 Oximetry 10/17/19 10/17/19 10/17/19 07:49 08:00 08:30 Temperature Pulse Rate 127 H 126 H Pulse Rate [ Anterior Bilateral Upper Lobe] Pulse Rate [ 128 H Anterior Left Throughout] Pulse Rate [ 138 H Anterior Right Throughout] Pulse Rate [ 149 H From Monitor] Respiratory 20 18 Rate Respiratory Rate [Anterior Bilateral Upper Lobe] Respiratory 20 Rate [Anterior Left Throughout ] Respiratory 19 Rate [Anterior Right Throughout] Blood Pressure 101/48 85/49 O2 Sat by Pulse 98 95 Oximetry 10/17/19 10/17/19 09:00 09:30 Temperature Pulse Rate 112 H 112 H Pulse Rate [ Anterior Bilateral Upper Lobe] Pulse Rate [ Anterior Left Throughout] Pulse Rate [ Anterior Right Throughout] Pulse Rate [ From Monitor] Respiratory 19 Rate Respiratory Rate [Anterior Bilateral Upper Lobe] Respiratory Rate [Anterior Left Throughout ] Respiratory Rate [Anterior Right Throughout] Blood Pressure 101/41 100/40 O2 Sat by Pulse 96 Oximetry - General physical appearance no distress, no pain, obese, other (intubated, sedate. Swollen) - Respiratory normal respiratory effort - Abdomen soft, distended, not rigid, other (Abthera and ES drains in place. normal appearing fluid in drains. Ostomy looks good. ) - Integumentary no rash, no growths, no abnormal pigmentation - Labs 10/17/19 04:08 10/17/19 04:08 Diabetes panel 10/17/19 Range/Units 04:08 Sodium 147 H (137-145) mmol/L Potassium 4.0 (3.6-5.0) mmol/L Chloride 114.9 H (98-107) mmol/L Carbon Dioxide 25 (22-30) mmol/L BUN 36 H (9-20) mg/dL Creatinine 0.8 (0.8-1.5) mg/dL Glucose 165 H (75-100) mg/dL Calcium 6.9 L (8.4-10.2) mg/dL Calcium panel 10/17/19 Range/Units 04:08 Calcium 6.9 L (8.4-10.2) mg/dL Phosphorus 2.20 L D (2.5-4.5) mg/dL Pituitary panel 10/17/19 Range/Units 04:08 Sodium 147 H (137-145) mmol/L Potassium 4.0 (3.6-5.0) mmol/L Chloride 114.9 H (98-107) mmol/L Carbon Dioxide 25 (22-30) mmol/L BUN 36 H (9-20) mg/dL Creatinine 0.8 (0.8-1.5) mg/dL Glucose 165 H (75-100) mg/dL Calcium 6.9 L (8.4-10.2) mg/dL Adrenal panel 10/17/19 Range/Units 04:08 Sodium 147 H (137-145) mmol/L Potassium 4.0 (3.6-5.0) mmol/L Chloride 114.9 H (98-107) mmol/L Carbon Dioxide 25 (22-30) mmol/L BUN 36 H (9-20) mg/dL Creatinine 0.8 (0.8-1.5) mg/dL Glucose 165 H (75-100) mg/dL Calcium 6.9 L (8.4-10.2) mg/dL
[2019-10-17] MEDS: LACTATED RINGERS 1,000 ML IV SCH ×4 (10:25→15:23)
--- NOTE | 2019-10-17 11:03 | Progress Note ---
Assessment and Plan Cultures 10/10/2019 surgical culture: No growth at 72 hours 10/13/2019 tracheal aspirate culture: No growth 10/13/2019 peritoneal fluid: Enterococcus species (S to Penicillin, Vancomycin) 10/15/2019 blood culture: no growth Assessment: 54 yo M PMhx CAD, COPD, recent complicated course of bowel perforation after a colonoscopy admitted with surgical site dehiscence of the fascia. Now with: 1. Acute sepsis - present with leukocytosis and tachycardia. Most likely secondary to fluid collection/abscess in the abdomen and anastomotic leak. 2. Intra-abdominal infection from anastomotic leak - s/p ex lap with closure of abdominal wall and wound vac placement (10/05/2019); s/p Re-exploration, washout, transection of colon, Abthera placement - 10/13/2019. s/p re- exploration and colostomy creation on 10/16/2019, intra-operatively was found to have "Small amount of continued leak from the old anastomotic site. Some contamination still present. Bowel was all viable". 3. COPD, acute respiratory failure: on the vent. 4. Penicillin allergy - likely not a true allergy, reviewed EMR for previous exposure to PCNs, patient received several days of Zosyn in 2018 without issue. Recs: - fever and increasing WBC could be reactive from surgery yesterday. Now that source is controlled, if he continues to spike fevers tomorrow, will consider switching his antimicrobials - continue IV Zosyn 4.5 gm q6 hrs - continue fluconazole 400mg q24h Julianna Pineda MD, FACP [facility] C: [phone] O: [phone] F: [phone] Subjective Date of service: 10/17/19 Principal diagnosis: acute renal failure Interval history: Had fevers overnight. Remains intubated, sedated. On TPN. Objective - Exam Narrative Exam: Physical Exam: Constitutional: sedated, intubated Head, Ears, Nose: Normocephalic, atraumatic. External ears, nose normal Eyes: Conjunctivae/corneas clear. No icterus. No ptosis. Neck: intubated Oral: intubated Cardiovascular: S1, S2 normal. Respiratory: Good air entry, clear to auscultation bilaterally GI: Midline abdominal VAC. bowel sounds absent. Colostomy + drain + Musculoskeletal: anasarca, pedal edema + Skin: No rash or abscess Hem/Lymphatic: No palpable cervical or supraclavicular nodes. No lymphangitis Psych: no agitation Neurological: sedated, intubated, on vent - Constitutional Vitals: Vital Signs Temp Pulse Resp BP Pulse Ox 102.6 F H 112 H 19 100/40 96 10/17/19 07:38 10/17/19 09:30 10/17/19 09:00 10/17/19 09:30 10/17/19 09:00 Temperature -Last 24 Hours Temperature 102.6 F Temperature 101.9 F Temperature 102.8 F Temperature 99.7 F Temperature 99.1 F Temperature 99.1 F Temperature 97.2 F Temperature 97.4 F Temperature 98.2 F Temperature 98.1 F Temperature 98.1 F - Labs CBC & Chem 7: 10/17/19 04:08 10/17/19 04:08 Labs: Abnormal lab results 10/13/19 10/16/19 10/16/19 Range/Units 13:20 09:20 11:58 WBC (4.5-11.0) K/mm3 RBC (3.65-5.03) M/mm3 Hgb (11.8-15.2) gm/dl Hct (35.5-45.6) % RDW (13.2-15.2) % Seg Neuts % (Manual) 79.0 H (40.0-70.0) % Lymphocytes % (Manual) 4.0 L (13.4-35.0) % Seg Neutrophils # Man 11.5 H (1.8-7.7) K/mm3 Lymphocytes # (Manual) 0.6 L (1.2-5.4) K/mm3 POC ABG pH (7.35-7.45) POC ABG pCO2 (35-45) POC ABG pO2 (80-105) Sodium (137-145) mmol/L Chloride (98-107) mmol/L BUN (9-20) mg/dL Glucose (75-100) mg/dL POC Glucose (70-105) Calcium (8.4-10.2) mg/dL Phosphorus (2.5-4.5) mg/dL Crossmatch See Detail See Detail 10/16/19 10/16/19 10/16/19 Range/Units 15:23 17:50 23:58 WBC (4.5-11.0) K/mm3 RBC (3.65-5.03) M/mm3 Hgb (11.8-15.2) gm/dl Hct (35.5-45.6) % RDW (13.2-15.2) % Seg Neuts % (Manual) (40.0-70.0) % Lymphocytes % (Manual) (13.4-35.0) % Seg Neutrophils # Man (1.8-7.7) K/mm3 Lymphocytes # (Manual) (1.2-5.4) K/mm3 POC ABG pH (7.35-7.45) POC ABG pCO2 (35-45) POC ABG pO2 (80-105) Sodium (137-145) mmol/L Chloride (98-107) mmol/L BUN (9-20) mg/dL Glucose (75-100) mg/dL POC Glucose 221 H 201 H 179 H (70-105) Calcium (8.4-10.2) mg/dL Phosphorus (2.5-4.5) mg/dL Crossmatch 10/17/19 10/17/19 10/17/19 Range/Units 04:08 04:08 05:41 WBC 22.3 H (4.5-11.0) K/mm3 RBC 3.35 L (3.65-5.03) M/mm3 Hgb 10.0 L (11.8-15.2) gm/dl Hct 31.2 L D (35.5-45.6) % RDW 16.1 H (13.2-15.2) % Seg Neuts % (Manual) (40.0-70.0) % Lymphocytes % (Manual) (13.4-35.0) % Seg Neutrophils # Man (1.8-7.7) K/mm3 Lymphocytes # (Manual) (1.2-5.4) K/mm3 POC ABG pH 7.310 L (7.35-7.45) POC ABG pCO2 52.8 H (35-45) POC ABG pO2 70 L (80-105) Sodium 147 H (137-145) mmol/L Chloride 114.9 H (98-107) mmol/L BUN 36 H (9-20) mg/dL Glucose 165 H (75-100) mg/dL POC Glucose (70-105) Calcium 6.9 L (8.4-10.2) mg/dL Phosphorus 2.20 L D (2.5-4.5) mg/dL Crossmatch 10/17/19 Range/Units 05:42 WBC (4.5-11.0) K/mm3 RBC (3.65-5.03) M/mm3 Hgb (11.8-15.2) gm/dl Hct (35.5-45.6) % RDW (13.2-15.2) % Seg Neuts % (Manual) (40.0-70.0) % Lymphocytes % (Manual) (13.4-35.0) % Seg Neutrophils # Man (1.8-7.7) K/mm3 Lymphocytes # (Manual) (1.2-5.4) K/mm3 POC ABG pH (7.35-7.45) POC ABG pCO2 (35-45) POC ABG pO2 (80-105) Sodium (137-145) mmol/L Chloride (98-107) mmol/L BUN (9-20) mg/dL Glucose (75-100) mg/dL POC Glucose 149 H (70-105) Calcium (8.4-10.2) mg/dL Phosphorus (2.5-4.5) mg/dL Crossmatch
[2019-10-17] MEDS: dilTIAZem/D5W 100 MG/100 ML BAG IV SCH ×2 (11:43→22:55)
--- NOTE | 2019-10-17 11:56 | Progress Note ---
Assessment and Plan Assessment and plan: 54 yo male with hx of CAD, NH, emphysema, COPD who presents with prolonged complicated course as a result of a bowel perforation. He has had 3 surgeries over the course of 10 days. On admission, a portion of his intestines protruded through the wound after severe cough. Dehiscence of closure of fascia * Went to OR for ex lap with closure of abdominal wall and wound vac placement (10/05) * Continued to decline with possible Air vs fluid, 10/10/19 IR went in and placed two drains, Noted to have possible fecal material * Returned to the OR 10/13/19 due to concern for intra-abdominal infection and was found to have with heavy contamination of abdomen patent had disruption of bowel anastomosis, abdominal washout, abthera placement and colon stapled transection and left bowel enterotomy from anastomosis completely open * Returned to OR on 10/16/19 for abdominal washout, Partial Omentectomy, Partial Colectomy, Colostomy Creation and AbThera Placement Severe sepsis secondary to bowel leak at anastomosis site/PNA -cont IV zosyn and fluconazole -surgical culture positive for enterococcus duras Acute Respiratory failure with hypoxia -on MV support -Data Processing Control Clerk following Left lower lobe pneumonia -Continue IV antibiotic -CTA chest showed left lower lobe consolidation with pleural effusion GUILLERMO on CRF -probably ATN due to sepsis -Improving, will monitor -SPEP and UPEP pending -No hydronephrosis on CT -[place] in place, monitor I/O's Severe Metabolic acidosis -Improved Acute Toxic Metabolic Encephalopathy/Delirium Tremens -Started on CIWA protocol due to hx of ETOH abuse, 6packs a day -Head CT scan negative for acute findings Hyperkalemia -Resolved Hyponatremia, now hypernatremia -cont 1/2NS -Improving, will monitor Acute blood loss anemia -H/H stable -Continue to monitor H&H and transfuse for hb<7 SVT, Atrial fib/flutter with RVR -treated with adenosine x1 -on IV amiodarone drip, digoxin, cardizem drip and PRN IV Lopressor -HR fairly controlled -Cardiology following Hypotension -Off esmolol drip -s/p IV fluid boluses, BP stable Hx of Hypertension -Stable Hyperlipidemia -stable Atypical chest pain -probably secondary to pneumonitis -troponin levels neg Hx of NH/CAD -s/p PCI of the circumflex and second vessel POBA of the distal LAD occlusion. Left ventricle fraction of 45-50%. Morbid obesity with BMI of 45.4 -Lifestyle modification recommended COPD -Stable -cont neb tx Moderate Protein calorie malnutrition secondary to surgery -On TPN -Nutrition following Tobacco abuse -Cessation recommended Morbid obesity with BMI of 45.4 -Lifestyle modification recommended Disp: Very poor prognosis. d/c per clinical course Critical time spent: 35 mins History Interval history: Patient is nonverbal. No reported issues overnight. Hospitalist Physical - Constitutional Vitals: Temp Pulse Resp BP Pulse Ox 102.6 F H 97 H 16 113/53 98 10/17/19 07:38 10/17/19 11:00 10/17/19 11:00 10/17/19 11:00 10/17/19 11:00 General appearance: Present: no acute distress, obese - EENT Eyes: Present: PERRL ENT: other (patient is intubated) - Neck Neck: Present: supple - Respiratory Respiratory effort: normal Respiratory: bilateral: diminished, rales - Cardiovascular Rhythm: irregularly irregular Heart Sounds: Present: S1 & S2 - Extremities Extremity abnormal: edema - Abdominal General gastrointestinal: soft, non-tender, hypoactive bowel sounds, other (surgical sites clean. wound VAC, colostomy bag and drain noted) - Psychiatric Psychiatric: other (unable to assess because patient is intubated and sedated) - Neurologic Neurologic: other (patient is intubated and sedated) Results - Labs CBC & Chem 7: 10/17/19 04:08 10/17/19 04:08 Labs: Laboratory Last Values WBC 22.3 K/mm3 (4.5-11.0) H 10/17/19 04:08 RBC 3.35 M/mm3 (3.65-5.03) L 10/17/19 04:08 Hgb 10.0 gm/dl (11.8-15.2) L 10/17/19 04:08 Hct 31.2 % (35.5-45.6) L D 10/17/19 04:08 MCV 93 fl (84-94) 10/17/19 04:08 MCH 30 pg (28-32) 10/17/19 04:08 MCHC 32 % (32-34) 10/17/19 04:08 RDW 16.1 % (13.2-15.2) H 10/17/19 04:08 Plt Count 188 K/mm3 (140-440) 10/17/19 04:08 Add Manual Diff Complete 10/16/19 09:20 Total Counted 100 10/16/19 09:20 Seg Neutrophils % Air Crew Officer 10/09/19 10:52 Seg Neuts % (Manual) 79.0 % (40.0-70.0) H 10/16/19 09:20 Band Neutrophils % 12.0 % 10/16/19 09:20 Lymphocytes % (Manual) 4.0 % (13.4-35.0) L 10/16/19 09:20 Reactive Lymphs % (Man) 0 % 10/16/19 09:20 Monocytes % (Manual) 2.0 % (0.0-7.3) 10/16/19 09:20 Eosinophils % (Manual) 0 % (0.0-4.3) 10/16/19 09:20 Basophils % (Manual) 0 % (0.0-1.8) 10/16/19 09:20 Metamyelocytes % 2.0 % 10/16/19 09:20 Myelocytes % 1.0 % 10/16/19 09:20 Promyelocytes % 0 % 10/16/19 09:20 Blast Cells % 0 % 10/16/19 09:20 Nucleated RBC % Not Reportable 10/16/19 09:20 Seg Neutrophils # Man 11.5 K/mm3 (1.8-7.7) H 10/16/19 09:20 Band Neutrophils # 1.8 K/mm3 10/16/19 09:20 Lymphocytes # (Manual) 0.6 K/mm3 (1.2-5.4) L 10/16/19 09:20 Abs React Lymphs (Man) 0.0 K/mm3 10/16/19 09:20 Monocytes # (Manual) 0.3 K/mm3 (0.0-0.8) 10/16/19 09:20 Eosinophils # (Manual) 0.0 K/mm3 (0.0-0.4) 10/16/19 09:20 Basophils # (Manual) 0.0 K/mm3 (0.0-0.1) 10/16/19 09:20 Metamyelocytes # 0.3 K/mm3 10/16/19 09:20 Myelocytes # 0.1 K/mm3 10/16/19 09:20 Promyelocytes # 0.0 K/mm3 10/16/19 09:20 Blast Cells # 0.0 K/mm3 10/16/19 09:20 WBC Morphology Not Reportable 10/16/19 09:20 Hypersegmented Neuts Not Reportable 10/16/19 09:20 Hyposegmented Neuts Not Reportable 10/16/19 09:20 Hypogranular Neuts Not Reportable 10/16/19 09:20 Smudge Cells Not Reportable 10/16/19 09:20 Toxic Granulation Not Reportable 10/16/19 09:20 Toxic Vacuolation Not Reportable 10/16/19 09:20 Dohle Bodies Not Reportable 10/16/19 09:20 Pelger-Huet Anomaly Not Reportable 10/16/19 09:20 Andres Rods Not Reportable 10/16/19 09:20 Platelet Estimate Consistent w auto 10/16/19 09:20 Clumped Platelets Not Reportable 10/16/19 09:20 Plt Clumps, EDTA Not Reportable 10/16/19 09:20 Large Platelets Not Reportable 10/16/19 09:20 Giant Platelets Not Reportable 10/16/19 09:20 Platelet Satelliting Not Reportable 10/16/19 09:20 Plt Morphology Comment Not Reportable 10/16/19 09:20 RBC Morphology Not Reportable 10/16/19 09:20 Dimorphic RBCs Not Reportable 10/16/19 09:20 Polychromasia Few 10/16/19 09:20 Hypochromasia Few 10/16/19 09:20 Poikilocytosis Not Reportable 10/16/19 09:20 Anisocytosis Not Reportable 10/16/19 09:20 Microcytosis Not Reportable 10/16/19 09:20 Macrocytosis Not Reportable 10/16/19 09:20 Spherocytes Not Reportable 10/16/19 09:20 Pappenheimer Bodies Not Reportable 10/16/19 09:20 Sickle Cells Not Reportable 10/16/19 09:20 Target Cells Few 10/16/19 09:20 Tear Drop Cells Not Reportable 10/16/19 09:20 Ovalocytes Not Reportable 10/16/19 09:20 Helmet Cells Not Reportable 10/16/19 09:20 Varghese-[place] Bodies Not Reportable 10/16/19 09:20 [place] Rings Not Reportable 10/16/19 09:20 Bishnu Cells Not Reportable 10/16/19 09:20 Bite Cells Not Reportable 10/16/19 09:20 Crenated Cell Not Reportable 10/16/19 09:20 Elliptocytes Not Reportable 10/16/19 09:20 Acanthocytes (Spur) Not Reportable 10/16/19 09:20 Rouleaux Not Reportable 10/16/19 09:20 Hemoglobin C Crystals Not Reportable 10/16/19 09:20 Schistocytes Not Reportable 10/16/19 09:20 Malaria parasites Not Reportable 10/16/19 09:20 Toni Bodies Not Reportable 10/16/19 09:20 Hem Pathologist Commnt No 10/16/19 09:20 POC ABG pH 7.310 (7.35-7.45) L 10/17/19 05:41 ABG pH 7.296 pH Units (7.350-7.450) L 10/15/19 05:30 POC ABG pCO2 52.8 (35-45) H 10/17/19 05:41 ABG pCO2 47.7 mm Hg 10/15/19 05:30 POC ABG pO2 70 (80-105) L 10/17/19 05:41 ABG pO2 114.7 mm Hg (80.0-90.0) H 10/15/19 05:30 POC ABG HCO3 26.6 (22-26 mml/L) 10/17/19 05:41 ABG HCO3 22.7 mmol/L (20.0-26.0) 10/15/19 05:30 POC ABG Total CO2 28 (23-27mmol/L) 10/17/19 05:41 POC ABG O2 Sat 92 10/17/19 05:41 ABG O2 Saturation 97.8 % (95.0-99.0) 10/15/19 05:30 ABG O2 Content 12.2 (0.0-44) 10/15/19 05:30 POC ABG Base Excess 0 ((-2) - (+3)mmol/L) 10/17/19 05:41 ABG Base Excess -3.7 mmol/L (-2.0-3.0) L 10/15/19 05:30 ABG Hemoglobin 8.9 gm/dl (14.0-18.0) L 10/15/19 05:30 ABG Carboxyhemoglobin 1.2 % (0.0-5.0) 10/15/19 05:30 ABG Methemoglobin 0.6 % (0.0-1.5) 10/15/19 05:30 Oxyhemoglobin 96.0 % (95.0-99.0) 10/15/19 05:30 FiO2 45 % 10/17/19 05:41 Sodium 147 mmol/L (137-145) H 10/17/19 04:08 Potassium 4.0 mmol/L (3.6-5.0) 10/17/19 04:08 Chloride 114.9 mmol/L (98-107) H 10/17/19 04:08 Carbon Dioxide 25 mmol/L (22-30) 10/17/19 04:08 Anion Gap 11 mmol/L 10/17/19 04:08 BUN 36 mg/dL (9-20) H 10/17/19 04:08 Creatinine 0.8 mg/dL (0.8-1.5) 10/17/19 04:08 Estimated GFR > 60 ml/min 10/17/19 04:08 BUN/Creatinine Ratio 45 % 10/17/19 04:08 Glucose 165 mg/dL (75-100) H 10/17/19 04:08 POC Glucose 154 (70-105) H 10/17/19 11:33 Hemoglobin A1c 5.7 % (4-6) 10/06/19 05:36 Lactic Acid 1.10 mmol/L (0.7-2.0) 10/13/19 04:20 Calcium 6.9 mg/dL (8.4-10.2) L 10/17/19 04:08 Phosphorus 2.20 mg/dL (2.5-4.5) L D 10/17/19 04:08 Magnesium 2.00 mg/dL (1.7-2.3) 10/17/19 04:08 Total Bilirubin 0.30 mg/dL (0.1-1.2) 10/15/19 04:32 Direct Bilirubin 0.3 mg/dL (0-0.2) H 10/12/19 09:30 Indirect Bilirubin 0.3 mg/dL 10/12/19 09:30 AST 72 units/L (5-40) H 10/15/19 04:32 ALT 31 units/L (7-56) 10/15/19 04:32 Alkaline Phosphatase 68 units/L (35-129) 10/15/19 04:32 Ammonia 49.0 umol/L (25-60) 10/13/19 04:20 Troponin T < 0.010 ng/mL (0.00-0.029) 10/09/19 17:23 C-Reactive Protein 30.60 mg/dL (0.00-1.30) H 10/15/19 04:32 Serum Total Protein 5.2 g/dL (6.1-8.1) L 10/11/19 09:00 Total Protein 4.0 g/dL (6.3-8.2) L D 10/15/19 04:32 Albumin 1.7 g/dL (3.9-5) L 10/15/19 04:32 Albumin/Globulin Ratio 0.7 % 10/15/19 04:32 Prealbumin 0.030 g/L (0.200-0.400) L 10/15/19 04:32 [id number]-[id number] 0.9 g/dL (0.2-0.3) H 10/11/19 09:00 Iqbkb-4-[id number] 1.0 g/dL (0.5-0.9) H 10/11/19 09:00 Beta Globulins 0.3 g/dL (0.2-0.5) 10/11/19 09:00 Gamma Globulins 0.7 g/dL (0.8-1.7) L 10/11/19 09:00 Abnorm Protein Band 1 see below 10/11/19 09:00 PEP Interpretation see below H 10/11/19 09:00 Triglycerides 114 mg/dL (2-149) 10/15/19 04:32 Urine Color Obdulia (Yellow) 10/11/19 06:23 Urine Turbidity Cloudy (Clear) 10/11/19 06:23 Urine pH 5.0 (5.0-7.0) 10/11/19 06:23 Ur Specific [place] 1.018 (1.003-1.030) 10/11/19 06:23 Urine Protein 30 mg/dl mg/dL (Negative) 10/11/19 06:23 Urine Glucose (UA) Neg mg/dL (Negative) 10/11/19 06:23 Urine Ketones Neg mg/dL (Negative) 10/11/19 06:23 Urine Blood Mod (Negative) 10/11/19 06:23 Urine Nitrite Neg (Negative) 10/11/19 06:23 Urine Bilirubin Neg (Negative) 10/11/19 06:23 Urine Urobilinogen < 2.0 mg/dL (<2.0) 10/11/19 06:23 Ur Leukocyte Esterase Neg (Negative) 10/11/19 06:23 Urine WBC (Auto) 3.0 /HPF (0.0-6.0) 10/11/19 06:23 Urine RBC (Auto) 3.0 /HPF (0.0-6.0) 10/11/19 06:23 Urine Bacteria (Auto) 1+ /HPF (Negative) 10/11/19 06:23 Urine Eosinophils None seen (None Seen) 10/11/19 06:23 Urine Creatinine 116.8 mg/dL (0.1-20.0) H 10/11/19 06:23 Urine Creatinine 118.2 mg/dL (0.1-20.0) H 10/11/19 06:23 Protein/Creatinin Ratio 0.89 10/11/19 06:23 Urine Sodium 14 mmol/L 10/11/19 06:23 Urine Total Protein 104 mg/dL (5-11.8) H 10/11/19 06:23 Urine Total Protein 105 mg/dL (5-11.8) H 10/11/19 06:23 Blood Type A POSITIVE 10/16/19 11:58 Antibody Screen Negative 10/16/19 11:58 Crossmatch See Detail 10/16/19 11:58 Active Medications - Current Medications Current Medications: Generic Name Dose Route Start Last Admin Trade Name Freq PRN Reason Stop Dose Admin Acetaminophen 650 mg 10/15/19 10:00 10/17/19 08:18 Tylenol AR 650 mg Q4H PRN Administration Pain MILD(1-3)/Fever >100.5/ROMANO Albuterol 2.5 mg 10/05/19 21:36 Proventil IH Q4HRT PRN Shortness Of Breath Albuterol/Ipratropium 1 ampul 10/06/19 02:00 10/17/19 07:48 Duoneb *Not For Prn Use* IH Not Given Q6HRT VERÓNICA Arformoterol Tartrate 15 mcg 10/06/19 08:30 10/17/19 07:48 Ashvin Yen IH 15 mcg Q12HRT VERÓNICA Administration Budesonide 0.5 mg 10/07/19 12:20 10/17/19 07:48 Pulmicort IH 0.5 mg Q12HRT VERÓNICA Administration Digoxin 0.125 mg 10/15/19 17:00 10/17/19 09:30 Lanoxin IV 0.125 mg QDAY VERÓNICA Administration Enoxaparin Sodium 40 mg 10/16/19 22:00 10/16/19 23:07 Enoxaparin SUB-Q 40 mg QDAY@2200 VERÓNICA Administration Fentanyl 50 mcg 10/14/19 02:19 Sublimaze IV Q10MIN PRN ANALGESIA Fluconazole 200 mls @ 100 mls/hr 10/12/19 11:00 10/17/19 09:33 Diflucan IV 100 mls/hr Q24HR VERÓNICA Administration Protocol Fentanyl Citrate 2,000 mcg in 100 mls @ 6.85 mls/hr 10/14/19 03:00 10/17/19 09:33 Fentanyl Drip Premix IV 1 mcg/kg/hr TITR VERÓNICA 6.85 mls/hr Administration Protocol 1 MCG/KG/HR Piperacillin Sod/Tazobactam Sod 4.5 gm in 100 mls @ 200 mls/hr 10/15/19 13:00 10/17/19 11:43 Zosyn/Ns 4.5gm/100ml IV 200 mls/hr Q6HR VERÓNICA Administration Protocol Amiodarone HCl 900 mg/ 500 mls @ 33.333 mls/hr 10/15/19 16:00 10/16/19 17:37 Dextrose IV 0.5 mg/min DIRECT VERÓNICA 16.667 mls/hr Administration Protocol 1 MG/MIN Amino Acids/Electrolytes/Dextrose 2,400 mls @ 100 mls/hr 10/16/19 20:00 10/16/19 20:25 Tpn Adult IV 10/17/19 19:59 100 mls/hr DAILY@2000 VERÓNICA Administration Protocol Sodium Chloride 1,000 mls @ 75 mls/hr 10/16/19 14:00 10/17/19 04:51 Nacl 0.45% 1000 Ml IV 75 mls/hr DIRECT VERÓNICA Administration Diltiazem HCl 100 mg in 100 mls @ 5 mls/hr 10/16/19 16:00 10/17/19 11:43 Cardizem/D5w 100mg/100ml IV 5 mg/hr TITR VERÓNICA 5 mls/hr Administration 5 MG/HR Sodium Chloride 1,000 mls @ 999 mls/hr 10/17/19 08:58 10/17/19 09:22 Nacl 0.45% 1000 Ml IV 999 mls/hr DIRECT PRN Administration FOR WOUND VAC/ABD REPLACEMENT Lactated Ringer's 1,000 mls @ 999 mls/hr 10/17/19 10:00 10/17/19 11:41 Lactated Ringers IV 10/20/19 11:01 999 mls/hr BOLUS VERÓNICA Administration Insulin Human Lispro 0 unit 10/14/19 12:00 10/17/19 06:36 Humalog SUB-Q Not Given Q6HR [facility] Protocol Metoprolol Tartrate 2.5 mg 10/15/19 15:34 10/16/19 09:50 Metoprolol IV 2.5 mg Q4HR PRN Administration HR >130 Multi-Ingred Cream/Lotion/Oil/Oint 1 applic 10/14/19 02:19 Artificial Tears Ophth Oint OU Q4HR PRN Dry Eye(s) Ondansetron HCl 4 mg 10/05/19 21:22 10/11/19 18:20 Zofran IV 4 mg Q3H PRN Administration Nausea And Vomiting Pantoprazole Sodium 40 mg 10/15/19 10:00 10/17/19 09:34 Protonix IV 40 mg QDAY VERÓNICA Administration Sodium Chloride 10 ml 10/05/19 21:22 10/17/19 09:34 Sodium Chloride Flush Syringe 10 Ml IV 10 ml PRN PRN Administration LINE FLUSH Nutrition/Malnutrition Assess - Dietary Evaluation Nutrition/Malnutrition Findings: Nutrition Notes Start: 10/08/19 11:36 Freq: Status: Active Protocol: Document 10/17/19 10:41 JENN (Rec: 10/17/19 11:35 JENN [id number]) Co-Sign 10/17/19 10:41 LM Nutrition Notes Initial or Follow up Reassessment Current Diagnosis Acute Kidney Injury,COPD, Hypertension Other Pertinent Diagnosis intra-abdominal infection, disruption of bowel anastomosis, LE edema Current Diet CPN at 100 ml/hr Labs/Tests Na 147 BUN 36 BG 165 Phos 2.2 Pertinent Medications Reviewed Height 6 ft Weight 151.8 kg [place] Body Weight (kg) 80.90 BMI 45.3 Weight Status Morbidly Obese Subjective/Other Information CPN day 4. Pt may get a feeding tube placement on Tuesday per chart. Percent of energy/protein needs met: 60%/74% Burn Absent Trauma Absent GI Symptoms None Current % PO Negligible Minimum of two criteria No Fluid Accumulation Mild (non-severe) #2 Nutrition Diagnosis Inadequate oral intake Diagnosis Progress(for reassessment Continues documentation) #1 Nutrition Diagnosis Increased nutrient needs ( specify in comment below) Diagnosis Progress(for reassessment Continues documentation) Is patient on ventilator? Yes Is Patient Ambulatory and/or Out of Bed No REE-([facility]-confined to bed) 2866.752 Kcal/Kg value to use for calculation 14 Approximate Energy Requirements Using 2125 kcal/Kg Calculation Used for Recommendations Kcal/kg Additional Notes Protein: 202g (up to 2.5 g/kg IBW 80.9 kg) Pay attention to renal issues Fluid: 1 ml/kcal or per MD Nutrition Intervention Change Diet Order: continue CPN Nutrition Support: CPN at 100 ml/hr: 30 mmol phos , Cl:acetate 0:100, MVI Kcal 1,280 Protein (gm) 150 Carbohydrates (gm) 200 Fat (gm) 0 Fluid (mL) 2,400 Fiber (gm) 0 Goal #1 Meet energy and protein needs as best as possible via CPN Anticipated Discharge Needs: unable to determine at this time Follow-Up By: 10/18/19 Additional Comments Labs in AM: BMP, Mg, Phos
--- NOTE | 2019-10-17 12:52 | Progress Note ---
<PIYUSH VERDIN - Last Filed: 10/17/19 12:49> Assessment and Plan Sepsis Severe abdominal pain s/p exploratory laparotomy, abdominal washout, closure of abdominal fascia with wound vac placement. Rapid atrial fibrillation/flutter treated with adenosine x1 on IV amiodarone and IV Diltiazem Recent colon resection for bowel perforation following a colonoscopy Atypical chest pain chest CT reports left lower lobe pleural effusion with suspected left upper lobe pneumonia. troponins are normal Hx of ME/CAD PCI of the circumflex and second vessel POBA of the distal LAD occlusion. Left ventricle fraction 45-50%. Tobacco abuse COPD Hypertension Hyperlipidemia Recommend: Continue aggressive medical therapy for atrial fibrillation. Subjective Date of service: 10/17/19 Principal diagnosis: acute renal failure Interval history: No interval changes. Objective Vital Signs Temp Pulse Pulse Pulse Pulse Pulse Resp 10/17/19 11:38 100.4 F H 10/17/19 11:00 97 H 16 10/17/19 10:30 108 H 20 10/17/19 10:00 108 H 20 10/17/19 09:30 111 H 18 10/17/19 09:00 112 H 19 10/17/19 08:30 126 H 18 10/17/19 08:00 127 H 149 H 20 10/17/19 07:49 128 H 138 H 10/17/19 07:38 102.6 F H 10/17/19 07:30 130 H 19 10/17/19 07:14 137 H 10/17/19 07:00 160 H 20 10/17/19 06:30 135 H 20 10/17/19 06:00 137 H 17 10/17/19 05:36 151 H 10/17/19 05:30 159 H 11 L 10/17/19 05:00 160 H 18 10/17/19 04:30 162 H 15 10/17/19 04:00 160 H 149 H 16 10/17/19 03:42 101.9 F H 10/17/19 03:30 147 H 20 10/17/19 03:00 139 H 22 10/17/19 02:53 146 H 10/17/19 02:52 137 H 10/17/19 02:30 148 H 18 10/17/19 02:00 148 H 19 10/17/19 01:30 148 H 22 10/17/19 01:00 149 H 22 10/17/19 00:30 161 H 23 10/17/19 00:16 160 H 160 H 25 H 10/17/19 00:00 102.8 F H 150 H 23 10/16/19 23:54 160 H 24 10/16/19 23:30 149 H 23 10/16/19 23:00 150 H 27 H 10/16/19 22:30 161 H 26 H 10/16/19 22:02 148 H 10/16/19 22:00 159 H 20 10/16/19 21:57 148 H 10/16/19 21:30 162 H 27 H 10/16/19 21:00 150 H 29 H 10/16/19 20:30 166 H 29 H 10/16/19 20:00 99.7 F H 166 H 169 H 33 H 10/16/19 19:30 162 H 33 H 10/16/19 19:00 99.1 F 163 H 33 H 10/16/19 18:30 99.1 F 163 H 32 H 10/16/19 18:00 97.2 F L 158 H 33 H 10/16/19 17:59 163 H 10/16/19 17:30 97.4 F L 161 H 33 H 10/16/19 17:15 98.2 F 163 H 26 H 10/16/19 17:00 160 H 33 H 10/16/19 16:51 161 H 10/16/19 16:30 160 H 32 H 10/16/19 16:00 157 H 157 H 27 H 10/16/19 15:36 98.1 F 10/16/19 15:30 153 H 29 H 10/16/19 15:05 115 H 27 H 10/16/19 15:00 106 H 21 10/16/19 14:59 113 H 10/16/19 14:57 106 H 10/16/19 14:54 98.1 F 111 H 27 H Resp Resp Resp BP Pulse Ox 10/17/19 11:38 10/17/19 11:00 113/53 98 10/17/19 10:30 110/48 98 10/17/19 10:00 103/48 98 10/17/19 09:30 95/38 96 10/17/19 09:00 101/41 96 10/17/19 08:30 85/49 95 10/17/19 08:00 101/48 98 10/17/19 07:49 20 19 10/17/19 07:38 10/17/19 07:30 97/35 96 10/17/19 07:14 97/35 94 10/17/19 07:00 108/50 96 10/17/19 06:30 105/48 96 10/17/19 06:00 105/54 94 10/17/19 05:36 105/54 97 10/17/19 05:30 104/58 94 10/17/19 05:00 97/45 95 10/17/19 04:30 101/62 95 10/17/19 04:00 106/49 95 10/17/19 03:42 10/17/19 03:30 106/56 95 10/17/19 03:00 106/56 94 10/17/19 02:53 100/53 95 10/17/19 02:52 21 10/17/19 02:30 100/53 98 10/17/19 02:00 102/51 97 10/17/19 01:30 109/58 97 10/17/19 01:00 109/58 10/17/19 00:30 121/63 10/17/19 00:16 96 10/17/19 00:00 114/50 97 10/16/19 23:54 114/50 96 10/16/19 23:30 119/62 96 10/16/19 23:00 111/60 97 10/16/19 22:30 134/59 97 10/16/19 22:02 28 H 10/16/19 22:00 114/60 99 10/16/19 21:57 114/60 95 10/16/19 21:30 115/50 96 10/16/19 21:00 123/57 95 10/16/19 20:30 114/58 96 10/16/19 20:00 132/63 96 10/16/19 19:30 119/64 95 10/16/19 19:00 125/62 96 10/16/19 18:30 109/67 96 10/16/19 18:00 105/69 97 10/16/19 17:59 114/64 97 10/16/19 17:30 94/76 98 10/16/19 17:15 122/66 100 10/16/19 17:00 126/79 98 10/16/19 16:51 114/69 10/16/19 16:30 114/69 98 10/16/19 16:00 117/77 98 10/16/19 15:36 10/16/19 15:30 116/60 10/16/19 15:05 116/60 95 10/16/19 15:00 154/67 10/16/19 14:59 116/60 100 10/16/19 14:57 141/74 10/16/19 14:54 154/67 100 - Physical Examination General: Other (intubated, unresponsive on the vent) Cardiac: Positive: irregularly irregular - Labs and Meds CBC 10/17/19 Range/Units 04:08 WBC 22.3 H (4.5-11.0) K/mm3 RBC 3.35 L (3.65-5.03) M/mm3 Hgb 10.0 L (11.8-15.2) gm/dl Hct 31.2 L D (35.5-45.6) % Plt Count 188 (140-440) K/mm3 Comprehensive Metabolic Panel 10/17/19 Range/Units 04:08 Sodium 147 H (137-145) mmol/L Potassium 4.0 (3.6-5.0) mmol/L Chloride 114.9 H (98-107) mmol/L Carbon Dioxide 25 (22-30) mmol/L BUN 36 H (9-20) mg/dL Creatinine 0.8 (0.8-1.5) mg/dL Glucose 165 H (75-100) mg/dL Calcium 6.9 L (8.4-10.2) mg/dL <RADHA BAKER - Last Filed: 10/17/19 15:17> Assessment and Plan I seen and evaluated the patient agree with the assessment and plan. Patient's atrial fibrillation is currently well-controlled. Patient has been on IV amiodarone as well as IV diltiazem. We'll continue these medications. We will stop the patient's digoxin is a patient is currently rate controlled, as well as to avoid drug interactions. Patient does have a history of myocardial infarction and coronary artery disease and should be treated with maximal medical therapy as well. Objective Vital Signs Temp Pulse Pulse Pulse Pulse Pulse Resp 10/17/19 13:56 162 H 10/17/19 13:07 163 H 163 H 10/17/19 12:48 97 H 10/17/19 11:38 100.4 F H 10/17/19 11:00 97 H 16 10/17/19 10:30 108 H 20 10/17/19 10:00 108 H 20 10/17/19 09:30 111 H 18 10/17/19 09:00 112 H 19 10/17/19 08:30 126 H 18 10/17/19 08:00 127 H 149 H 20 10/17/19 07:49 128 H 138 H 10/17/19 07:38 102.6 F H 10/17/19 07:30 130 H 19 10/17/19 07:14 137 H 10/17/19 07:00 160 H 20 10/17/19 06:30 135 H 20 10/17/19 06:00 137 H 17 10/17/19 05:36 151 H 10/17/19 05:30 159 H 11 L 10/17/19 05:00 160 H 18 10/17/19 04:30 162 H 15 10/17/19 04:00 160 H 149 H 16 10/17/19 03:42 101.9 F H 10/17/19 03:30 147 H 20 10/17/19 03:00 139 H 22 10/17/19 02:53 146 H 10/17/19 02:52 137 H 10/17/19 02:30 148 H 18 10/17/19 02:00 148 H 19 10/17/19 01:30 148 H 22 10/17/19 01:00 149 H 22 10/17/19 00:30 161 H 23 10/17/19 00:16 160 H 160 H 25 H 10/17/19 00:00 102.8 F H 150 H 23 10/16/19 23:54 160 H 24 10/16/19 23:30 149 H 23 10/16/19 23:00 150 H 27 H 10/16/19 22:30 161 H 26 H 10/16/19 22:02 148 H 10/16/19 22:00 159 H 20 10/16/19 21:57 148 H 10/16/19 21:30 162 H 27 H 10/16/19 21:00 150 H 29 H 10/16/19 20:30 166 H 29 H 10/16/19 20:00 99.7 F H 166 H 169 H 33 H 10/16/19 19:30 162 H 33 H 10/16/19 19:00 99.1 F 163 H 33 H 10/16/19 18:30 99.1 F 163 H 32 H 10/16/19 18:00 97.2 F L 158 H 33 H 10/16/19 17:59 163 H 10/16/19 17:30 97.4 F L 161 H 33 H 10/16/19 17:15 98.2 F 163 H 26 H 10/16/19 17:00 160 H 33 H 10/16/19 16:51 161 H 10/16/19 16:30 160 H 32 H 10/16/19 16:00 157 H 157 H 27 H 10/16/19 15:36 98.1 F 10/16/19 15:30 153 H 29 H Resp Resp Resp BP Pulse Ox 10/17/19 13:56 129/75 10/17/19 13:07 23 23 10/17/19 12:48 113/53 98 10/17/19 11:38 10/17/19 11:00 113/53 98 10/17/19 10:30 110/48 98 10/17/19 10:00 103/48 98 10/17/19 09:30 95/38 96 10/17/19 09:00 101/41 96 10/17/19 08:30 85/49 95 10/17/19 08:00 101/48 98 10/17/19 07:49 20 19 10/17/19 07:38 10/17/19 07:30 97/35 96 10/17/19 07:14 97/35 94 10/17/19 07:00 108/50 96 10/17/19 06:30 105/48 96 10/17/19 06:00 105/54 94 10/17/19 05:36 105/54 97 10/17/19 05:30 104/58 94 10/17/19 05:00 97/45 95 10/17/19 04:30 101/62 95 10/17/19 04:00 106/49 95 10/17/19 03:42 10/17/19 03:30 106/56 95 10/17/19 03:00 106/56 94 10/17/19 02:53 100/53 95 10/17/19 02:52 21 10/17/19 02:30 100/53 98 10/17/19 02:00 102/51 97 10/17/19 01:30 109/58 97 10/17/19 01:00 109/58 10/17/19 00:30 121/63 10/17/19 00:16 96 10/17/19 00:00 114/50 97 10/16/19 23:54 114/50 96 10/16/19 23:30 119/62 96 10/16/19 23:00 111/60 97 10/16/19 22:30 134/59 97 10/16/19 22:02 28 H 10/16/19 22:00 114/60 99 10/16/19 21:57 114/60 95 10/16/19 21:30 115/50 96 10/16/19 21:00 123/57 95 10/16/19 20:30 114/58 96 10/16/19 20:00 132/63 96 10/16/19 19:30 119/64 95 10/16/19 19:00 125/62 96 10/16/19 18:30 109/67 96 10/16/19 18:00 105/69 97 10/16/19 17:59 114/64 97 10/16/19 17:30 94/76 98 10/16/19 17:15 122/66 100 10/16/19 17:00 126/79 98 10/16/19 16:51 114/69 10/16/19 16:30 114/69 98 10/16/19 16:00 117/77 98 10/16/19 15:36 10/16/19 15:30 116/60 - Labs and Meds CBC 10/17/19 Range/Units 04:08 WBC 22.3 H (4.5-11.0) K/mm3 RBC 3.35 L (3.65-5.03) M/mm3 Hgb 10.0 L (11.8-15.2) gm/dl Hct 31.2 L D (35.5-45.6) % Plt Count 188 (140-440) K/mm3 Comprehensive Metabolic Panel 10/17/19 Range/Units 04:08 Sodium 147 H (137-145) mmol/L Potassium 4.0 (3.6-5.0) mmol/L Chloride 114.9 H (98-107) mmol/L Carbon Dioxide 25 (22-30) mmol/L BUN 36 H (9-20) mg/dL Creatinine 0.8 (0.8-1.5) mg/dL Glucose 165 H (75-100) mg/dL Calcium 6.9 L (8.4-10.2) mg/dL
[2019-10-17] MEDS: METOPROLOL TARTRATE 5 MG/5 ML INJ IV PRN ×2 (13:56→19:23)
--- NOTE | 2019-10-17 15:13 | Progress Note ---
Assessment and Plan Acute Renal Failure likely secondary to ischemic ATN due to Sepsis, Resolved Hypernatremia: Hypocalcemia: -Renal labs reviewed-serum creatinine 0.8 today. -No hydronephrosis on CT -Hypernatremia-On 1/2NS@ 75 ml/hr -SPEP-pending -Check ionized calcium -Obtain daily weights -Strict I/O's -Continue to monitor Dehiscence of closure of fascia, superficial or muscular -S/P multiple abdominal surgeries -S/P CT guided placement of a 8 Fr APD drain in the RUQ and RLQ by IR today -Gen surgeon onboard Hypertension -Stable -Adjust regimen as needed Subjective Date of service: 10/17/19 Principal diagnosis: acute renal failure Interval history: Patient seen lying in bed. Intubated. No family at bedside. Objective - Vital Signs Vital signs: Vital Signs - 12hr 10/17/19 10/17/19 10/17/19 03:30 03:42 04:00 Temperature 101.9 F H Pulse Rate 147 H 160 H Pulse Rate [ Anterior Left Throughout] Pulse Rate [ Anterior Right Throughout] Pulse Rate [ 149 H From Monitor] Respiratory 20 16 Rate Respiratory Rate [Anterior Left Throughout ] Respiratory Rate [Anterior Right Throughout] Blood Pressure 106/56 106/49 O2 Sat by Pulse 95 95 Oximetry 10/17/19 10/17/19 10/17/19 04:30 05:00 05:30 Temperature Pulse Rate 162 H 160 H 159 H Pulse Rate [ Anterior Left Throughout] Pulse Rate [ Anterior Right Throughout] Pulse Rate [ From Monitor] Respiratory 15 18 11 L Rate Respiratory Rate [Anterior Left Throughout ] Respiratory Rate [Anterior Right Throughout] Blood Pressure 101/62 97/45 104/58 O2 Sat by Pulse 95 95 94 Oximetry 10/17/19 10/17/19 10/17/19 05:36 06:00 06:30 Temperature Pulse Rate 151 H 137 H 135 H Pulse Rate [ Anterior Left Throughout] Pulse Rate [ Anterior Right Throughout] Pulse Rate [ From Monitor] Respiratory 17 20 Rate Respiratory Rate [Anterior Left Throughout ] Respiratory Rate [Anterior Right Throughout] Blood Pressure 105/54 105/54 105/48 O2 Sat by Pulse 97 94 96 Oximetry 10/17/19 10/17/19 10/17/19 07:00 07:14 07:30 Temperature Pulse Rate 160 H 137 H 130 H Pulse Rate [ Anterior Left Throughout] Pulse Rate [ Anterior Right Throughout] Pulse Rate [ From Monitor] Respiratory 20 19 Rate Respiratory Rate [Anterior Left Throughout ] Respiratory Rate [Anterior Right Throughout] Blood Pressure 108/50 97/35 97/35 O2 Sat by Pulse 96 94 96 Oximetry 10/17/19 10/17/19 10/17/19 07:38 07:49 08:00 Temperature 102.6 F H Pulse Rate 127 H Pulse Rate [ 128 H Anterior Left Throughout] Pulse Rate [ 138 H Anterior Right Throughout] Pulse Rate [ 149 H From Monitor] Respiratory 20 Rate Respiratory 20 Rate [Anterior Left Throughout ] Respiratory 19 Rate [Anterior Right Throughout] Blood Pressure 101/48 O2 Sat by Pulse 98 Oximetry 10/17/19 10/17/19 10/17/19 08:30 09:00 09:30 Temperature Pulse Rate 126 H 112 H 111 H Pulse Rate [ Anterior Left Throughout] Pulse Rate [ Anterior Right Throughout] Pulse Rate [ From Monitor] Respiratory 18 19 18 Rate Respiratory Rate [Anterior Left Throughout ] Respiratory Rate [Anterior Right Throughout] Blood Pressure 85/49 101/41 95/38 O2 Sat by Pulse 95 96 96 Oximetry 10/17/19 10/17/19 10/17/19 10:00 10:30 11:00 Temperature Pulse Rate 108 H 108 H 97 H Pulse Rate [ Anterior Left Throughout] Pulse Rate [ Anterior Right Throughout] Pulse Rate [ From Monitor] Respiratory 20 20 16 Rate Respiratory Rate [Anterior Left Throughout ] Respiratory Rate [Anterior Right Throughout] Blood Pressure 103/48 110/48 113/53 O2 Sat by Pulse 98 98 98 Oximetry 10/17/19 10/17/19 10/17/19 11:38 12:48 13:07 Temperature 100.4 F H Pulse Rate 97 H Pulse Rate [ 163 H Anterior Left Throughout] Pulse Rate [ 163 H Anterior Right Throughout] Pulse Rate [ From Monitor] Respiratory Rate Respiratory 23 Rate [Anterior Left Throughout ] Respiratory 23 Rate [Anterior Right Throughout] Blood Pressure 113/53 O2 Sat by Pulse 98 Oximetry 10/17/19 13:56 Temperature Pulse Rate 162 H Pulse Rate [ Anterior Left Throughout] Pulse Rate [ Anterior Right Throughout] Pulse Rate [ From Monitor] Respiratory Rate Respiratory Rate [Anterior Left Throughout ] Respiratory Rate [Anterior Right Throughout] Blood Pressure 129/75 O2 Sat by Pulse Oximetry - General Appearance General appearance: sedated on ventilator, intubated EENT: ATNC Neck: no JVD, supple Respiratory: Present: Decreased Breath Sounds Cardiology: S1S2 Gastrointestinal: normoactive bowel sounds Integumentary: warm and dry Neurologic: other (Intubated) Musculoskeletal: joint swelling - Lab 10/17/19 04:08 10/17/19 04:08 Most recent lab results ABG pH 7.296 pH Units (7.350-7.450) L 10/15/19 05:30 ABG pCO2 47.7 mm Hg 10/15/19 05:30 ABG pO2 114.7 mm Hg (80.0-90.0) H 10/15/19 05:30 ABG HCO3 22.7 mmol/L (20.0-26.0) 10/15/19 05:30 ABG O2 Saturation 97.8 % (95.0-99.0) 10/15/19 05:30 Calcium 6.9 mg/dL (8.4-10.2) L 10/17/19 04:08 Phosphorus 2.20 mg/dL (2.5-4.5) L D 10/17/19 04:08 Magnesium 2.00 mg/dL (1.7-2.3) 10/17/19 04:08 Urine Creatinine 116.8 mg/dL (0.1-20.0) H 10/11/19 06:23 Urine Creatinine 118.2 mg/dL (0.1-20.0) H 10/11/19 06:23 Urine Sodium 14 mmol/L 10/11/19 06:23 Urine Total Protein 104 mg/dL (5-11.8) H 10/11/19 06:23 Urine Total Protein 105 mg/dL (5-11.8) H 10/11/19 06:23 Medications & Allergies - Medications Allergies/Adverse Reactions: Allergies Sulfa (Sulfonamide Antibiotics) Allergy (Severe, Verified 03/22/16 18:34) Rash oxytetracycline [From Terramycin] Allergy (Verified 03/22/16 10:32) Unknown oxytetracycline HCl [From Terramycin] Allergy (Verified 03/22/16 10:32) Unknown Home Medications: Home Medications Medication Instructions Recorded Confirmed Last Taken Type ALBUTEROL Inhaler (OR & NICU) 2 puff IH QID PRN #1 inhalation 08/17/18 10/06/19 Unknown Rx [ProAir HFA Inhaler] Arformoterol Nebu [Brovana Nebu] 15 mcg IH Q12HRT ml 08/17/18 10/06/19 10/05/19 Rx Benzonatate [Tessalon Perles] 100 mg PO Q8HR capsule 08/17/18 10/06/19 10/03/19 21:00 Rx Citalopram [Celexa] 20 mg PO QDAY #30 tablet 08/17/18 10/06/19 10/04/19 Rx Ipratropium/Albuterol Sulfate 1 ampul IH Q6HRT #30 ampul.neb 08/17/18 10/06/19 10/05/19 21:00 Rx [DUONEB *Not for PRN Use*] Lisinopril [Zestril TAB] 20 mg PO DAILY #30 tablet 08/17/18 10/06/19 10/05/19 08:00 Rx Metoprolol [Lopressor TAB] 100 mg PO BID #60 tablet 08/17/18 10/06/19 10/05/19 08:00 Rx Pravastatin [Pravachol] 40 mg PO QHS #30 tablet 08/17/18 10/06/19 10/04/19 22:00 Rx Symbicort 160-4.5 Mcg Inhaler 1 puff INHALATION BID #30 08/17/18 10/06/19 09/05/19 23:00 Rx Acetaminophen [Acetaminophen TAB] 2 tab PO Q4H PRN #30 tablet 10/03/19 10/06/19 Unknown Rx Bisacodyl [Dulcolax suppos] 10 mg ME QDAY PRN #4 supp.rect 10/03/19 10/06/19 Unknown Rx Pantoprazole [Protonix TAB] 40 mg PO BID #60 tablet 10/03/19 10/06/19 10/04/19 21:00 Rx Sucralfate [Carafate] 1 gm PO Q6HR 30 Days oral.liqd 10/03/19 10/06/19 10/05/19 08:00 Rx levoFLOXacin [Levaquin TAB] 750 mg PO QDAY #2 tablet 10/03/19 10/06/19 10/04/19 08:00 Rx oxyCODONE /ACETAMINOPHEN [Percocet 1 tab PO Q4H PRN #26 tablet 10/03/19 10/06/1919 21:00 Rx 5/325 mg] Active Medications: Generic Name Dose Route Start Last Admin Trade Name Freq PRN Reason Stop Dose Admin Acetaminophen 650 mg 10/15/19 10:00 10/17/19 08:18 Tylenol ME 650 mg Q4H PRN Administration Pain MILD(1-3)/Fever >100.5/ROMANO Albuterol 2.5 mg 10/05/19 21:36 Proventil IH Q4HRT PRN Shortness Of Breath Albuterol/Ipratropium 1 ampul 10/06/19 02:00 10/17/19 13:07 Duoneb *Not For Prn Use* IH 1 ampul Q6HRT VERÓNICA Administration Arformoterol Tartrate 15 mcg 10/06/19 08:30 10/17/19 07:48 Brovana Nebu IH 15 mcg Q12HRT VERÓNICA Administration Budesonide 0.5 mg 10/07/19 12:20 10/17/19 07:48 Pulmicort IH 0.5 mg Q12HRT VERÓNICA Administration Enoxaparin Sodium 40 mg 10/16/19 22:00 10/16/19 23:07 Enoxaparin SUB-Q 40 mg QDAY@2200 VERÓNICA Administration Fentanyl 50 mcg 10/14/19 02:19 Sublimaze IV Q10MIN PRN ANALGESIA Fluconazole 200 mls @ 100 mls/hr 10/12/19 11:00 10/17/19 09:33 Diflucan IV 100 mls/hr Q24HR VERÓNICA Administration Protocol Fentanyl Citrate 2,000 mcg in 100 mls @ 6.85 mls/hr 10/14/19 03:00 10/17/19 09:33 Fentanyl Drip Premix IV 1 mcg/kg/hr TITR VERÓNICA 6.85 mls/hr Administration Protocol 1 MCG/KG/HR Piperacillin Sod/Tazobactam Sod 4.5 gm in 100 mls @ 200 mls/hr 10/15/19 13:00 10/17/19 11:43 Zosyn/Ns 4.5gm/100ml IV 200 mls/hr Q6HR VERÓNICA Administration Protocol Amiodarone HCl 900 mg/ 500 mls @ 33.333 mls/hr 10/15/19 16:00 10/16/19 17:37 Dextrose IV 0.5 mg/min DIRECT VERÓNICA 16.667 mls/hr Administration Protocol 1 MG/MIN Amino Acids/Electrolytes/Dextrose 2,400 mls @ 100 mls/hr 10/16/19 20:00 10/16/19 20:25 Tpn Adult IV 10/17/19 19:59 100 mls/hr DAILY@1999 VERÓNICA Administration Protocol Sodium Chloride 1,000 mls @ 75 mls/hr 10/16/19 14:00 10/17/19 04:51 Nacl 0.45% 1000 Ml IV 75 mls/hr DIRECT VERÓNICA Administration Diltiazem HCl 100 mg in 100 mls @ 5 mls/hr 10/16/19 16:00 10/17/19 11:43 Cardizem/D5w 100mg/100ml IV 5 mg/hr TITR VERÓNICA 5 mls/hr Administration 5 MG/HR Sodium Chloride 1,000 mls @ 999 mls/hr 10/17/19 08:58 10/17/19 09:22 Nacl 0.45% 1000 Ml IV 999 mls/hr DIRECT PRN Administration FOR WOUND VAC/ABD REPLACEMENT Lactated Ringer's 1,000 mls @ 999 mls/hr 10/17/19 10:00 10/17/19 12:25 Lactated Ringers IV 10/20/19 11:01 999 mls/hr BOLUS VERÓNICA Administration Amino Acids/Electrolytes/Dextrose 2,400 mls @ 100 mls/hr 10/17/19 20:00 Tpn Adult IV 10/18/19 19:59 DAILY@1999 [facility] Protocol Insulin Human Lispro 0 unit 10/14/19 12:00 10/17/19 11:52 Humalog SUB-Q 1 unit Q6HR [facility] Administration Protocol Metoprolol Tartrate 2.5 mg 10/15/19 15:34 10/17/19 13:56 Metoprolol IV 2.5 mg Q4HR PRN Administration HR >130 Multi-Ingred Cream/Lotion/Oil/Oint 1 applic 10/14/19 02:19 Artificial Tears Ophth Oint OU Q4HR PRN Dry Eye(s) Ondansetron HCl 4 mg 10/05/19 21:22 10/11/19 18:20 Zofran IV 4 mg Q3H PRN Administration Nausea And Vomiting Pantoprazole Sodium 40 mg 10/15/19 10:00 10/17/19 09:34 Protonix IV 40 mg QDAY VERÓNICA Administration Sodium Chloride 10 ml 10/05/19 21:22 10/17/19 09:34 Sodium Chloride Flush Syringe 10 Ml IV 10 ml PRN PRN Administration LINE FLUSH
[2019-10-17] MEDS: fentaNYL 100 MCG/2 ML INJ IV PRN (15:15)
--- NOTE | 2019-10-17 15:22 | Progress Note ---
Assessment and Plan 54 y/o male with anastomic leak 1. CV-tachycardia but stable BP. Was ok on Amio and Dilt but when BP started dropping, we stopped the dilt. Now rate back up and not controlled on . Spoke to nursing about increasing to 10. Continue fluid boluses for BP as needed. Trying not to start pressors if possible. 2. Pulm-stable on Vent. FiO2 down to 45% prior to go to OR. CXR shows right lower lobe airspace disease (10/15). Light green substance in ET tube has stopped. Continue current vent management. Wean once all surgeries are done. 3. GI-Going back to OR again on Tuesday for Washout. 4. Renal- Renal function and output have improved. Will continue to monitor. Had a large volume out that we are actively replacing. This may have added to hypotension this am. 5. Neuro- on rounds, per nursing, patient did not wake up during sedation vacation. Stopping all sedation now. If not able to control rate with drugs, could be related to pain. Spoke to nursing to use PRN pushes to see if this helps HR as well. If patient's mental state does not improve post all surgeries, may need CT head, EEG and neurology evaluation. 6. ID-continues to spike temps. ID following. Defer to them for repeat cultures. Blood has been negative. 7. Electrolytes-Reviewed renal note from yesterday. Overall prognosis is guarded. Will continue to follow. CCT 31 minutes. Subjective Date of service: 10/17/19 Principal diagnosis: acute renal failure Interval history: Hypotensive this am. On Amio and Dilt for rate control. Responded to fluid boluses. Na still high but better than yesterday. Tolerated surgery yesterday. Objective Vital Signs - 12hr 10/17/19 10/17/19 10/17/19 03:30 03:42 04:00 Temperature 101.9 F H Pulse Rate 147 H 160 H Pulse Rate [ Anterior Left Throughout] Pulse Rate [ Anterior Right Throughout] Pulse Rate [ 149 H From Monitor] Respiratory 20 16 Rate Respiratory Rate [Anterior Left Throughout ] Respiratory Rate [Anterior Right Throughout] Blood Pressure 106/56 106/49 O2 Sat by Pulse 95 95 Oximetry 10/17/19 10/17/19 10/17/19 04:30 05:00 05:30 Temperature Pulse Rate 162 H 160 H 159 H Pulse Rate [ Anterior Left Throughout] Pulse Rate [ Anterior Right Throughout] Pulse Rate [ From Monitor] Respiratory 15 18 11 L Rate Respiratory Rate [Anterior Left Throughout ] Respiratory Rate [Anterior Right Throughout] Blood Pressure 101/62 97/45 104/58 O2 Sat by Pulse 95 95 94 Oximetry 10/17/19 10/17/19 10/17/19 05:36 06:00 06:30 Temperature Pulse Rate 151 H 137 H 135 H Pulse Rate [ Anterior Left Throughout] Pulse Rate [ Anterior Right Throughout] Pulse Rate [ From Monitor] Respiratory 17 20 Rate Respiratory Rate [Anterior Left Throughout ] Respiratory Rate [Anterior Right Throughout] Blood Pressure 105/54 105/54 105/48 O2 Sat by Pulse 97 94 96 Oximetry 10/17/19 10/17/19 10/17/19 07:00 07:14 07:30 Temperature Pulse Rate 160 H 137 H 130 H Pulse Rate [ Anterior Left Throughout] Pulse Rate [ Anterior Right Throughout] Pulse Rate [ From Monitor] Respiratory 20 19 Rate Respiratory Rate [Anterior Left Throughout ] Respiratory Rate [Anterior Right Throughout] Blood Pressure 108/50 97/35 97/35 O2 Sat by Pulse 96 94 96 Oximetry 10/17/19 10/17/19 10/17/19 07:38 07:49 08:00 Temperature 102.6 F H Pulse Rate 127 H Pulse Rate [ 128 H Anterior Left Throughout] Pulse Rate [ 138 H Anterior Right Throughout] Pulse Rate [ 149 H From Monitor] Respiratory 20 Rate Respiratory 20 Rate [Anterior Left Throughout ] Respiratory 19 Rate [Anterior Right Throughout] Blood Pressure 101/48 O2 Sat by Pulse 98 Oximetry 10/17/19 10/17/19 10/17/19 08:30 09:00 09:30 Temperature Pulse Rate 126 H 112 H 111 H Pulse Rate [ Anterior Left Throughout] Pulse Rate [ Anterior Right Throughout] Pulse Rate [ From Monitor] Respiratory 18 19 18 Rate Respiratory Rate [Anterior Left Throughout ] Respiratory Rate [Anterior Right Throughout] Blood Pressure 85/49 101/41 95/38 O2 Sat by Pulse 95 96 96 Oximetry 10/17/19 10/17/19 10/17/19 10:00 10:30 11:00 Temperature Pulse Rate 108 H 108 H 97 H Pulse Rate [ Anterior Left Throughout] Pulse Rate [ Anterior Right Throughout] Pulse Rate [ From Monitor] Respiratory 20 20 16 Rate Respiratory Rate [Anterior Left Throughout ] Respiratory Rate [Anterior Right Throughout] Blood Pressure 103/48 110/48 113/53 O2 Sat by Pulse 98 98 98 Oximetry 10/17/19 10/17/19 10/17/19 11:38 12:48 13:07 Temperature 100.4 F H Pulse Rate 97 H Pulse Rate [ 163 H Anterior Left Throughout] Pulse Rate [ 163 H Anterior Right Throughout] Pulse Rate [ From Monitor] Respiratory Rate Respiratory 23 Rate [Anterior Left Throughout ] Respiratory 23 Rate [Anterior Right Throughout] Blood Pressure 113/53 O2 Sat by Pulse 98 Oximetry 10/17/19 13:56 Temperature Pulse Rate 162 H Pulse Rate [ Anterior Left Throughout] Pulse Rate [ Anterior Right Throughout] Pulse Rate [ From Monitor] Respiratory Rate Respiratory Rate [Anterior Left Throughout ] Respiratory Rate [Anterior Right Throughout] Blood Pressure 129/75 O2 Sat by Pulse Oximetry Constitutional: alert Eyes: non-icteric ENT: oropharynx moist Neck: supple Effort: normal Ascultation: Bilateral: diminished breath sounds Cardiovascular: regular rate and rhythm Gastrointestinal: tender Integumentary: normal Extremities: no cyanosis Neurologic: normal mental status, non-focal exam Psychiatric: mood appropriate, affect normal CBC and BMP: 10/17/19 04:08 10/17/19 04:08 ABG, PT/INR, D-dimer: ABG POC ABG pH 7.310 (7.35-7.45) L 10/17/19 05:41 ABG pH 7.296 pH Units (7.350-7.450) L 10/15/19 05:30 POC ABG pCO2 52.8 (35-45) H 10/17/19 05:41 ABG pCO2 47.7 mm Hg 10/15/19 05:30 POC ABG pO2 70 (80-105) L 10/17/19 05:41 ABG pO2 114.7 mm Hg (80.0-90.0) H 10/15/19 05:30 POC ABG HCO3 26.6 (22-26 mml/L) 10/17/19 05:41 POC ABG Total CO2 28 (23-27mmol/L) 10/17/19 05:41 POC ABG O2 Sat 92 10/17/19 05:41 ABG O2 Saturation 97.8 % (95.0-99.0) 10/15/19 05:30 Abnormal lab findings: Abnormal Labs 10/06/19 10/06/19 10/07/19 05:36 05:36 05:54 WBC 21.8 H 21.5 H RBC 3.55 L Hgb 10.9 L Hct 32.7 L RDW Plt Count Seg Neuts % (Manual) 91.0 H Lymphocytes % (Manual) 2.0 L Seg Neutrophils # Man 19.8 H Lymphocytes # (Manual) 0.4 L Monocytes # (Manual) 1.1 H POC ABG pH ABG pH POC ABG pCO2 POC ABG pO2 ABG pO2 ABG HCO3 ABG Base Excess ABG Hemoglobin Oxyhemoglobin Sodium 135 L Potassium Chloride 95.9 L Carbon Dioxide BUN Creatinine 0.7 L Glucose POC Glucose Calcium Phosphorus Magnesium Direct Bilirubin AST C-Reactive Protein Serum Total Protein Total Protein 5.7 L Albumin 2.5 L Prealbumin Jbvqp-2-Tailwlyup Qaxue-2-Ytkztnohc Gamma Globulins PEP Interpretation Urine Creatinine Urine Total Protein Crossmatch 10/07/19 10/09/19 10/09/19 05:54 10:52 10:52 WBC 16.6 H RBC Hgb Hct RDW Plt Count 498 H Seg Neuts % (Manual) 93.0 H Lymphocytes % (Manual) 5.0 L Seg Neutrophils # Man 15.4 H Lymphocytes # (Manual) 0.8 L Monocytes # (Manual) POC ABG pH ABG pH POC ABG pCO2 POC ABG pO2 ABG pO2 ABG HCO3 ABG Base Excess ABG Hemoglobin Oxyhemoglobin Sodium Potassium Chloride 97.9 L Carbon Dioxide 20 L D BUN 23 H Creatinine 1.7 H D Glucose 109 H POC Glucose Calcium 8.1 L Phosphorus Magnesium Direct Bilirubin AST C-Reactive Protein Serum Total Protein Total Protein Albumin Prealbumin Wrthv-8-Kvuxoumql Kywbh-2-Ryzdxjcll Gamma Globulins PEP Interpretation Urine Creatinine Urine Total Protein Crossmatch 10/09/19 10/10/19 10/10/19 17:23 05:30 05:30 WBC 14.6 H RBC Hgb 11.1 L Hct 33.5 L RDW Plt Count 527 H Seg Neuts % (Manual) Lymphocytes % (Manual) Seg Neutrophils # Man Lymphocytes # (Manual) Monocytes # (Manual) POC ABG pH ABG pH POC ABG pCO2 POC ABG pO2 ABG pO2 ABG HCO3 ABG Base Excess ABG Hemoglobin Oxyhemoglobin Sodium 130 L D Potassium 5.1 H Chloride 90.0 L 91.0 L Carbon Dioxide 20 L 20 L BUN 27 H 35 H Creatinine 1.9 H 2.0 H Glucose 104 H POC Glucose Calcium Phosphorus Magnesium Direct Bilirubin AST C-Reactive Protein Serum Total Protein Total Protein Albumin Prealbumin Uhiep-3-Nonvmowhy Ehikg-4-Geozzhadp Gamma Globulins PEP Interpretation Urine Creatinine Urine Total Protein Crossmatch 10/10/19 10/10/19 10/11/19 08:33 08:44 05:41 WBC 13.2 H RBC Hgb 11.3 L Hct 33.8 L RDW 15.3 H Plt Count 543 H Seg Neuts % (Manual) Lymphocytes % (Manual) Seg Neutrophils # Man Lymphocytes # (Manual) Monocytes # (Manual) POC ABG pH ABG pH POC ABG pCO2 POC ABG pO2 ABG pO2 ABG HCO3 ABG Base Excess ABG Hemoglobin Oxyhemoglobin Sodium Potassium Chloride Carbon Dioxide BUN Creatinine Glucose 113 H POC Glucose 117 H Calcium Phosphorus Magnesium Direct Bilirubin AST C-Reactive Protein Serum Total Protein Total Protein Albumin Prealbumin Jhfgd-7-Olxbjokyl Vamae-6-Kagfwcoxu Gamma Globulins PEP Interpretation Urine Creatinine Urine Total Protein Crossmatch 10/11/19 10/11/19 10/11/19 05:41 06:23 06:23 WBC RBC Hgb Hct RDW Plt Count Seg Neuts % (Manual) Lymphocytes % (Manual) Seg Neutrophils # Man Lymphocytes # (Manual) Monocytes # (Manual) POC ABG pH ABG pH POC ABG pCO2 POC ABG pO2 ABG pO2 ABG HCO3 ABG Base Excess ABG Hemoglobin Oxyhemoglobin Sodium 134 L Potassium Chloride 96.3 L Carbon Dioxide BUN 37 H Creatinine Glucose 58 L POC Glucose Calcium Phosphorus 4.90 H Magnesium Direct Bilirubin AST C-Reactive Protein Serum Total Protein Total Protein Albumin Prealbumin Pyvqe-4-Ifywqcpwk Gaxbi-0-Fqfqzhyfg Gamma Globulins PEP Interpretation Urine Creatinine 118.2 H 116.8 H Urine Total Protein 105 H 104 H Crossmatch 10/11/19 10/12/19 10/12/19 09:00 06:09 06:09 WBC 13.8 H RBC 3.39 L Hgb 10.2 L Hct 30.9 L RDW 15.5 H Plt Count 459 H Seg Neuts % (Manual) Lymphocytes % (Manual) Seg Neutrophils # Man Lymphocytes # (Manual) Monocytes # (Manual) POC ABG pH ABG pH POC ABG pCO2 POC ABG pO2 ABG pO2 ABG HCO3 ABG Base Excess ABG Hemoglobin Oxyhemoglobin Sodium 131 L Potassium Chloride 96.2 L Carbon Dioxide 21 L BUN 43 H Creatinine Glucose 72 L POC Glucose Calcium Phosphorus Magnesium Direct Bilirubin AST C-Reactive Protein Serum Total Protein 5.2 L Total Protein Albumin 1.9 L Prealbumin Zdnko-8-Niavqlvqg 0.9 H Iiews-2-Jumeagofr 1.0 H Gamma Globulins 0.7 L PEP Interpretation see below H Urine Creatinine Urine Total Protein Crossmatch 10/12/19 10/12/19 10/12/19 08:20 09:30 09:30 WBC RBC Hgb Hct RDW Plt Count Seg Neuts % (Manual) Lymphocytes % (Manual) Seg Neutrophils # Man Lymphocytes # (Manual) Monocytes # (Manual) POC ABG pH ABG pH POC ABG pCO2 POC ABG pO2 63 L ABG pO2 ABG HCO3 ABG Base Excess ABG Hemoglobin Oxyhemoglobin Sodium Potassium Chloride Carbon Dioxide BUN Creatinine Glucose POC Glucose Calcium Phosphorus Magnesium 2.50 H Direct Bilirubin 0.3 H AST C-Reactive Protein Serum Total Protein Total Protein 5.1 L Albumin 2.2 L Prealbumin Rtujl-1-Phccyqffy Dhvld-1-Gvgtsesgk Gamma Globulins PEP Interpretation Urine Creatinine Urine Total Protein Crossmatch 10/13/19 10/13/19 10/13/19 04:20 04:20 13:20 WBC 15.7 H RBC 3.64 L Hgb 10.9 L Hct 33.1 L RDW 15.8 H Plt Count 488 H Seg Neuts % (Manual) Lymphocytes % (Manual) Seg Neutrophils # Man Lymphocytes # (Manual) Monocytes # (Manual) POC ABG pH ABG pH POC ABG pCO2 POC ABG pO2 ABG pO2 ABG HCO3 ABG Base Excess ABG Hemoglobin Oxyhemoglobin Sodium Potassium Chloride Carbon Dioxide BUN 28 H Creatinine Glucose POC Glucose Calcium Phosphorus Magnesium Direct Bilirubin AST C-Reactive Protein Serum Total Protein Total Protein Albumin Prealbumin Prchn-1-Nohaxpxvt Fizin-8-Xubgnolae Gamma Globulins PEP Interpretation Urine Creatinine Urine Total Protein Crossmatch See Detail 10/13/19 10/13/19 10/14/19 18:24 20:05 04:47 WBC 24.2 H RBC Hgb 10.9 L Hct 34.2 L RDW 17.0 H Plt Count 442 H Seg Neuts % (Manual) Lymphocytes % (Manual) Seg Neutrophils # Man Lymphocytes # (Manual) Monocytes # (Manual) POC ABG pH ABG pH 7.180 L* 7.278 L POC ABG pCO2 POC ABG pO2 ABG pO2 130.7 H ABG HCO3 ABG Base Excess -6.5 L -6.5 L ABG Hemoglobin 12.2 L 12.3 L Oxyhemoglobin 92.9 L Sodium Potassium Chloride Carbon Dioxide BUN Creatinine Glucose POC Glucose Calcium Phosphorus Magnesium Direct Bilirubin AST C-Reactive Protein Serum Total Protein Total Protein Albumin Prealbumin Ywlhj-9-Xmrnisvsd Ylkwz-1-Koivptwjd Gamma Globulins PEP Interpretation Urine Creatinine Urine Total Protein Crossmatch 10/14/19 10/14/19 10/14/19 04:47 05:40 10:14 WBC RBC Hgb Hct RDW Plt Count Seg Neuts % (Manual) Lymphocytes % (Manual) Seg Neutrophils # Man Lymphocytes # (Manual) Monocytes # (Manual) POC ABG pH ABG pH POC ABG pCO2 POC ABG pO2 ABG pO2 76.3 L ABG HCO3 19.1 L ABG Base Excess -5.8 L ABG Hemoglobin 10.9 L Oxyhemoglobin 93.4 L Sodium Potassium 5.1 H D Chloride 109.2 H Carbon Dioxide 17 L BUN 38 H Creatinine 1.8 H D Glucose 104 H POC Glucose Calcium 7.4 L Phosphorus 5.60 H Magnesium Direct Bilirubin AST C-Reactive Protein Serum Total Protein Total Protein Albumin Prealbumin Bhgqo-4-Kqavwlxyx Ylwte-5-Hupvlbpio Gamma Globulins PEP Interpretation Urine Creatinine Urine Total Protein Crossmatch 10/14/19 10/15/19 10/15/19 23:46 04:32 04:32 WBC 15.5 H RBC 2.89 L Hgb 8.8 L Hct 27.3 L D RDW 16.6 H Plt Count Seg Neuts % (Manual) Lymphocytes % (Manual) Seg Neutrophils # Man Lymphocytes # (Manual) Monocytes # (Manual) POC ABG pH ABG pH POC ABG pCO2 POC ABG pO2 ABG pO2 ABG HCO3 ABG Base Excess ABG Hemoglobin Oxyhemoglobin Sodium 147 H Potassium Chloride 114.0 H Carbon Dioxide 19 L BUN 42 H Creatinine Glucose 112 H POC Glucose 113 H Calcium 7.3 L Phosphorus Magnesium Direct Bilirubin AST 72 H C-Reactive Protein 30.60 H Serum Total Protein Total Protein 4.0 L D Albumin 1.7 L Prealbumin 0.030 L Nipmq-3-Lilucgemx Tnzxz-9-Ebakfavli Gamma Globulins PEP Interpretation Urine Creatinine Urine Total Protein Crossmatch 10/15/19 10/15/19 10/15/19 05:30 12:08 17:23 WBC RBC Hgb Hct RDW Plt Count Seg Neuts % (Manual) Lymphocytes % (Manual) Seg Neutrophils # Man Lymphocytes # (Manual) Monocytes # (Manual) POC ABG pH ABG pH 7.296 L POC ABG pCO2 POC ABG pO2 ABG pO2 114.7 H ABG HCO3 ABG Base Excess -3.7 L ABG Hemoglobin 8.9 L Oxyhemoglobin Sodium Potassium Chloride Carbon Dioxide BUN Creatinine Glucose POC Glucose 106 H 106 H Calcium Phosphorus Magnesium Direct Bilirubin AST C-Reactive Protein Serum Total Protein Total Protein Albumin Prealbumin Lqzuo-5-Aislsuudf Gqqhj-5-Ieplcmrrs Gamma Globulins PEP Interpretation Urine Creatinine Urine Total Protein Crossmatch 10/16/19 10/16/19 10/16/19 00:07 04:44 05:24 WBC RBC Hgb Hct RDW Plt Count Seg Neuts % (Manual) Lymphocytes % (Manual) Seg Neutrophils # Man Lymphocytes # (Manual) Monocytes # (Manual) POC ABG pH ABG pH POC ABG pCO2 POC ABG pO2 ABG pO2 ABG HCO3 ABG Base Excess ABG Hemoglobin Oxyhemoglobin Sodium 150 H Potassium Chloride 115.8 H Carbon Dioxide BUN 35 H Creatinine Glucose 129 H POC Glucose 119 H 129 H Calcium 7.3 L Phosphorus 1.80 L D Magnesium Direct Bilirubin AST C-Reactive Protein Serum Total Protein Total Protein Albumin Prealbumin Thkqd-7-Yqqzsrcwg Romfz-3-Zbawjjqrw Gamma Globulins PEP Interpretation Urine Creatinine Urine Total Protein Crossmatch 10/16/19 10/16/19 10/16/19 06:53 09:20 11:58 WBC 14.6 H RBC 2.70 L Hgb 8.1 L Hct 25.2 L RDW 16.7 H Plt Count Seg Neuts % (Manual) 79.0 H Lymphocytes % (Manual) 4.0 L Seg Neutrophils # Man 11.5 H Lymphocytes # (Manual) 0.6 L Monocytes # (Manual) POC ABG pH ABG pH POC ABG pCO2 47.0 H POC ABG pO2 ABG pO2 ABG HCO3 ABG Base Excess ABG Hemoglobin Oxyhemoglobin Sodium Potassium Chloride Carbon Dioxide BUN Creatinine Glucose POC Glucose Calcium Phosphorus Magnesium Direct Bilirubin AST C-Reactive Protein Serum Total Protein Total Protein Albumin Prealbumin Qvwub-9-Desvlczqd Vlncc-1-Oecrauptk Gamma Globulins PEP Interpretation Urine Creatinine Urine Total Protein Crossmatch See Detail 10/16/19 10/16/19 10/16/19 15:23 17:50 23:58 WBC RBC Hgb Hct RDW Plt Count Seg Neuts % (Manual) Lymphocytes % (Manual) Seg Neutrophils # Man Lymphocytes # (Manual) Monocytes # (Manual) POC ABG pH ABG pH POC ABG pCO2 POC ABG pO2 ABG pO2 ABG HCO3 ABG Base Excess ABG Hemoglobin Oxyhemoglobin Sodium Potassium Chloride Carbon Dioxide BUN Creatinine Glucose POC Glucose 221 H 201 H 179 H Calcium Phosphorus Magnesium Direct Bilirubin AST C-Reactive Protein Serum Total Protein Total Protein Albumin Prealbumin Urflb-1-Ttamrhbte Vmpwf-4-Xzezxbjsc Gamma Globulins PEP Interpretation Urine Creatinine Urine Total Protein Crossmatch 10/17/19 10/17/19 10/17/19 04:08 04:08 05:41 WBC 22.3 H RBC 3.35 L Hgb 10.0 L Hct 31.2 L D RDW 16.1 H Plt Count Seg Neuts % (Manual) Lymphocytes % (Manual) Seg Neutrophils # Man Lymphocytes # (Manual) Monocytes # (Manual) POC ABG pH 7.310 L ABG pH POC ABG pCO2 52.8 H POC ABG pO2 70 L ABG pO2 ABG HCO3 ABG Base Excess ABG Hemoglobin Oxyhemoglobin Sodium 147 H Potassium Chloride 114.9 H Carbon Dioxide BUN 36 H Creatinine Glucose 165 H POC Glucose Calcium 6.9 L Phosphorus 2.20 L D Magnesium Direct Bilirubin AST C-Reactive Protein Serum Total Protein Total Protein Albumin Prealbumin Udqbm-9-Lgiaijdvh Wqlux-6-Abuuqeksl Gamma Globulins PEP Interpretation Urine Creatinine Urine Total Protein Crossmatch 10/17/19 10/17/19 05:42 11:33 WBC RBC Hgb Hct RDW Plt Count Seg Neuts % (Manual) Lymphocytes % (Manual) Seg Neutrophils # Man Lymphocytes # (Manual) Monocytes # (Manual) POC ABG pH ABG pH POC ABG pCO2 POC ABG pO2 ABG pO2 ABG HCO3 ABG Base Excess ABG Hemoglobin Oxyhemoglobin Sodium Potassium Chloride Carbon Dioxide BUN Creatinine Glucose POC Glucose 149 H 154 H Calcium Phosphorus Magnesium Direct Bilirubin AST C-Reactive Protein Serum Total Protein Total Protein Albumin Prealbumin Dklva-2-Sxjepzcum Hefpw-1-Itbrvfzwb Gamma Globulins PEP Interpretation Urine Creatinine Urine Total Protein Crossmatch
[2019-10-17] MEDS: AMIODARONE 900 MG in DEXTROSE 5% IN WATER 482 ML IV SCH (19:33)
[2019-10-17] MEDS ORDERED: TOTAL PARENTERAL NUTRITION 2,400 ML IV SCH (20:00)
[2019-10-17] MEDS: ENOXAPARIN 40 MG/0.4 ML INJ SUB-Q SCH (21:12)
[2019-10-18] MEDS: METOPROLOL TARTRATE 5 MG/5 ML INJ IV PRN (00:05)
[2019-10-18] MEDS: PIPERACIL/TAZOBACTA 4.5/NS 100 4.5 GM/100 ML VIAL IV SCH ×4 (00:06→18:25)
[2019-10-18] MEDS: INSULIN LISPRO 100 UNIT/ML SUB-Q SCH ×4 (00:08→18:26)
[2019-10-18] MEDS: SODIUM CHLORIDE 0.45% 1000 ML 1,000 ML IV PRN ×2 (00:20→22:44)
[2019-10-18] MEDS: IPRATROPIUM/ALBUTEROL SULFATE 3 ML AMPUL.NEB IH SCH ×4 (04:29→20:05)
[2019-10-18 05:25] LABS: BUN/Creatinine Ratio 45; Blood Urea Nitrogen 27 mg/dL (9-20); Calcium 7.1 mg/dL (8.4-10.2); Hemolysis Index 50
[2019-10-18 05:42] LABS: ABG Base Excess 0.4 mmol/L (-2.0-3.0); ABG HCO3 24.9 mmol/L (20.0-26.0); ABG Methemoglobin 0.5 % (0.0-1.5); ABG Oxygen Saturation 96.8 % (95.0-99.0); ABG PCO2 39.5 mm Hg; ABG PH 7.418 pH Units (7.350-7.450); ABG PO2 78.8 mm Hg (80.0-90.0)
[2019-10-18] MEDS: BUDESONIDE 0.5 MG/2 ML NEBU IH SCH ×2 (07:38→20:04)
[2019-10-18] MEDS: ARFORMOTEROL 15 MCG/2 ML NEBU IH SCH ×2 (07:39→20:04)
[2019-10-18] MEDS ORDERED: MAGNESIUM SULFATE 2 GM/50 ML BAG IV ONE (09:00)
[2019-10-18] MEDS ORDERED: POTASSIUM PHOSPHATE 15 MMOL in SODIUM CHLORIDE 0.9% 250ML 250 ML IV ONE (09:00)
[2019-10-18] MEDS: PANTOPRAZOLE 40 MG INJ IV SCH (09:41)
[2019-10-18] MEDS: FLUCONAZOLE 400 MG 200 ML IV SCH (09:41)
--- NOTE | 2019-10-18 09:56 | Progress Note ---
Assessment and Plan - Patient Problems (1) Dehiscence of closure of fascia, superficial or muscular Current Visit: No Status: Acute Qualifiers: Encounter type: initial encounter Qualified Code(s): T81.32XA - Disruption of internal operation (surgical) wound, not elsewhere classified, initial encounter Plan to address problem: Pt stable. s/p ex lap with closure of abdominal wall and wound vac placement (10/05) - POD#12; s/p Re-exploration, washout, transection of colon, Abthera placement - 10/13 - POD#4; s/p abd washout, partial omentectomy, partial colectomy with colostomy - 10/16 POD#2. Rec: 1) Neuro - sedated. Family states that he has not had a drink in 3 weeks. Perhaps withdrawal may not have been involved. Ativan currently held. Staff reports he is opening eyes to name now 2) CV - BP much improved. Back in Sinus rhythm! 3) Resp - Vent support. Good ABG. 4) GI - Ostomy looks good. ES Drain output has concerning appearance for possibly small leak (drain volume is low) from the colon stump site. Will check tomorrow. Plan for take back to surgery on Tuesday at 2pm for possible closure and feeding tube placement. OGT looking better. Appearing more gastric now. Patient had a recent episode of an upper GI bleed secondary to an NG tube. We will try to remove OG tube as soon as possible. 5) - BUN/Cr look good 6) ID - Abx per ID. Enterococcus on cultures. Fevers resolved. 7) Nutrition - TPN 8) DVT prophylaxis - SCDs. Lovenox order adjusted to not be given tonight in preparation for surgery tomorrow. 9) Family -spoke with this morning. Questions answered. Consent obtained for tomorrow. Please call with questions. Subjective Date of service: 10/18/19 Patient Reports: Positive: other (converted to sinus rhythm overnight. Off cardizem) Objective Vital Signs - 12hr 10/17/19 10/17/19 10/17/19 22:00 22:30 22:55 Temperature Pulse Rate 164 H 165 H 164 H Pulse Rate [ Anterior Left Throughout] Pulse Rate [ Anterior Right Throughout] Pulse Rate [ From Monitor] Respiratory 27 H 29 H Rate Respiratory Rate [Anterior Left Throughout ] Respiratory Rate [Anterior Right Throughout] Blood Pressure 136/80 121/77 133/82 O2 Sat by Pulse 99 100 Oximetry 10/17/19 10/17/19 10/17/19 23:00 23:22 23:26 Temperature Pulse Rate 163 H 165 H Pulse Rate [ Anterior Left Throughout] Pulse Rate [ Anterior Right Throughout] Pulse Rate [ 165 H From Monitor] Respiratory 29 H 26 H 28 H Rate Respiratory Rate [Anterior Left Throughout ] Respiratory Rate [Anterior Right Throughout] Blood Pressure 133/82 135/59 O2 Sat by Pulse 100 100 100 Oximetry 10/17/19 10/17/19 10/18/19 23:30 23:33 00:00 Temperature 98.2 F 98.2 F Pulse Rate 166 H 165 H 105 H Pulse Rate [ Anterior Left Throughout] Pulse Rate [ Anterior Right Throughout] Pulse Rate [ From Monitor] Respiratory 26 H 25 H 29 H Rate Respiratory Rate [Anterior Left Throughout ] Respiratory Rate [Anterior Right Throughout] Blood Pressure 133/81 129/76 129/78 O2 Sat by Pulse 100 100 100 Oximetry 10/18/19 10/18/19 10/18/19 00:02 00:05 00:18 Temperature Pulse Rate 164 H 164 H 122 H Pulse Rate [ Anterior Left Throughout] Pulse Rate [ Anterior Right Throughout] Pulse Rate [ From Monitor] Respiratory 29 H Rate Respiratory Rate [Anterior Left Throughout ] Respiratory Rate [Anterior Right Throughout] Blood Pressure 125/83 125/83 106/55 O2 Sat by Pulse 100 100 Oximetry 10/18/19 10/18/19 10/18/19 00:30 01:00 01:30 Temperature Pulse Rate 106 H 109 H 123 H Pulse Rate [ Anterior Left Throughout] Pulse Rate [ Anterior Right Throughout] Pulse Rate [ From Monitor] Respiratory 28 H 26 H 28 H Rate Respiratory Rate [Anterior Left Throughout ] Respiratory Rate [Anterior Right Throughout] Blood Pressure 106/55 121/59 136/51 O2 Sat by Pulse 100 99 100 Oximetry 10/18/19 10/18/19 10/18/19 02:00 02:30 03:00 Temperature Pulse Rate 117 H 75 78 Pulse Rate [ Anterior Left Throughout] Pulse Rate [ Anterior Right Throughout] Pulse Rate [ From Monitor] Respiratory 29 H 28 H 29 H Rate Respiratory Rate [Anterior Left Throughout ] Respiratory Rate [Anterior Right Throughout] Blood Pressure 123/60 130/64 128/58 O2 Sat by Pulse 100 100 100 Oximetry 10/18/19 10/18/19 10/18/19 03:28 03:30 04:00 Temperature 98.9 F Pulse Rate 79 82 Pulse Rate [ Anterior Left Throughout] Pulse Rate [ Anterior Right Throughout] Pulse Rate [ 80 From Monitor] Respiratory 30 H 30 H Rate Respiratory Rate [Anterior Left Throughout ] Respiratory Rate [Anterior Right Throughout] Blood Pressure 125/65 129/64 O2 Sat by Pulse 100 100 100 Oximetry 10/18/19 10/18/19 10/18/19 04:29 04:30 04:33 Temperature Pulse Rate 83 83 Pulse Rate [ 84 Anterior Left Throughout] Pulse Rate [ 84 Anterior Right Throughout] Pulse Rate [ From Monitor] Respiratory 29 H Rate Respiratory 30 H Rate [Anterior Left Throughout ] Respiratory 30 H Rate [Anterior Right Throughout] Blood Pressure 134/61 134/68 O2 Sat by Pulse 100 100 Oximetry 10/18/19 10/18/19 10/18/19 05:00 05:30 06:00 Temperature 98.9 F Pulse Rate 86 85 85 Pulse Rate [ Anterior Left Throughout] Pulse Rate [ Anterior Right Throughout] Pulse Rate [ From Monitor] Respiratory 31 H 28 H 24 Rate Respiratory Rate [Anterior Left Throughout ] Respiratory Rate [Anterior Right Throughout] Blood Pressure 128/56 132/60 140/65 O2 Sat by Pulse 97 97 99 Oximetry 10/18/19 10/18/19 07:39 07:40 Temperature Pulse Rate 85 Pulse Rate [ 84 Anterior Left Throughout] Pulse Rate [ 84 Anterior Right Throughout] Pulse Rate [ From Monitor] Respiratory 32 H Rate Respiratory 33 H Rate [Anterior Left Throughout ] Respiratory 31 H Rate [Anterior Right Throughout] Blood Pressure 140/65 O2 Sat by Pulse 99 Oximetry - General physical appearance no distress, no pain, obese - Respiratory normal expansion, normal respiratory effort - Abdomen soft, distended, other (wound vac with normal appearing drainage. ES drain with slightly thicker brownish drainage.) - Integumentary no rash, no growths, no abnormal pigmentation - Labs 10/17/19 04:08 10/18/19 03:29 Diabetes panel 10/18/19 Range/Units 03:29 Sodium 144 (137-145) mmol/L Potassium 3.9 (3.6-5.0) mmol/L Chloride 111.8 H (98-107) mmol/L Carbon Dioxide 24 (22-30) mmol/L BUN 27 H (9-20) mg/dL Creatinine 0.6 L (0.8-1.5) mg/dL Glucose 140 H (75-100) mg/dL Calcium 7.1 L (8.4-10.2) mg/dL Calcium panel 10/18/19 Range/Units 03:29 Calcium 7.1 L (8.4-10.2) mg/dL Phosphorus 1.80 L (2.5-4.5) mg/dL Pituitary panel 10/18/19 Range/Units 03:29 Sodium 144 (137-145) mmol/L Potassium 3.9 (3.6-5.0) mmol/L Chloride 111.8 H (98-107) mmol/L Carbon Dioxide 24 (22-30) mmol/L BUN 27 H (9-20) mg/dL Creatinine 0.6 L (0.8-1.5) mg/dL Glucose 140 H (75-100) mg/dL Calcium 7.1 L (8.4-10.2) mg/dL Adrenal panel 10/18/19 Range/Units 03:29 Sodium 144 (137-145) mmol/L Potassium 3.9 (3.6-5.0) mmol/L Chloride 111.8 H (98-107) mmol/L Carbon Dioxide 24 (22-30) mmol/L BUN 27 H (9-20) mg/dL Creatinine 0.6 L (0.8-1.5) mg/dL Glucose 140 H (75-100) mg/dL Calcium 7.1 L (8.4-10.2) mg/dL
--- NOTE | 2019-10-18 10:41 | Progress Note ---
Assessment and Plan Assessment and plan: 54 yo male with hx of CAD, MA, emphysema, COPD who presents with prolonged complicated course as a result of a bowel perforation. He has had 3 surgeries over the course of 10 days. On admission, a portion of his intestines protruded through the wound after severe cough. Dehiscence of closure of fascia * Went to OR for ex lap with closure of abdominal wall and wound vac placement (10/05) * Continued to decline with possible Air vs fluid, 10/10/19 IR went in and placed two drains, Noted to have possible fecal material * Returned to the OR 10/13/19 due to concern for intra-abdominal infection and was found to have with heavy contamination of abdomen patent had disruption of bowel anastomosis, abdominal washout, abthera placement and colon stapled transection and left bowel enterotomy from anastomosis completely open * Returned to OR on 10/16/19 for abdominal washout, Partial Omentectomy, Partial Colectomy, Colostomy Creation and AbThera Placement Severe sepsis secondary to bowel leak at anastomosis site/PNA -cont IV zosyn and fluconazole -surgical culture positive for enterococcus duras Acute Respiratory failure with hypoxia -on MV support -Shirt Creaser following Left lower lobe pneumonia -Continue IV antibiotic -CTA chest showed left lower lobe consolidation with pleural effusion GUILLERMO on CRF -probably ATN due to sepsis -Improving, will monitor -SPEP and UPEP pending -No hydronephrosis on CT -[place] in place, monitor I/O's Severe Metabolic acidosis -Improved Acute Toxic Metabolic Encephalopathy/Delirium Tremens -Started on CIWA protocol due to hx of ETOH abuse, 6packs a day -Head CT scan negative for acute findings Hyperkalemia -Resolved Hyponatremia, now hypernatremia -cont 1/2NS -Improving, will monitor Acute blood loss anemia -H/H stable -Continue to monitor H&H and transfuse for hb<7 SVT, Atrial fib/flutter with RVR -treated with adenosine x1 -on IV amiodarone drip, cardizem drip and PRN IV Lopressor. Off digoxin -HR currently controlled -Cardiology following Hypotension -Off esmolol drip -s/p IV fluid boluses, BP stable Hypophosphatemia -On oral repletion, will monitor level Hx of Hypertension -Stable Hyperlipidemia -stable Atypical chest pain -probably secondary to pneumonitis -troponin levels neg Hx of MA/CAD -s/p PCI of the circumflex and second vessel POBA of the distal LAD occlusion. Left ventricle fraction of 45-50%. Morbid obesity with BMI of 45.4 -Lifestyle modification recommended COPD -Stable -cont neb tx Moderate Protein calorie malnutrition secondary to surgery -On TPN -Nutrition following Tobacco abuse -Cessation recommended Morbid obesity with BMI of 45.4 -Lifestyle modification recommended Disp: Very poor prognosis. d/c per clinical course Critical time spent: 35 mins History Interval history: Patient is nonverbal. No reported issues overnight. Hospitalist Physical - Constitutional Vitals: Temp Pulse Resp BP Pulse Ox 98.9 F 85 32 H 140/65 99 10/18/19 05:00 10/18/19 07:40 10/18/19 07:40 10/18/19 07:40 10/18/19 07:40 General appearance: Present: no acute distress, obese - EENT Eyes: Present: PERRL ENT: other (pt is intubated) - Neck Neck: Present: supple - Respiratory Respiratory effort: normal Respiratory: bilateral: diminished, rales (bibasilar lungs) - Cardiovascular Rhythm: irregularly irregular Heart Sounds: Present: S1 & S2 - Extremities Extremity abnormal: edema (in BLE and BUE) - Abdominal General gastrointestinal: soft, non-tender, hypoactive bowel sounds, other (surgical sites clean. wound VAC, colostomy bag and drain noted) - Psychiatric Psychiatric: other (unable to assess due to altered mental status) - Neurologic Neurologic: other (patient opens eyes but unable to follow commands) Results - Labs CBC & Chem 7: 10/17/19 04:08 10/18/19 03:29 Labs: Laboratory Last Values WBC 22.3 K/mm3 (4.5-11.0) H 10/17/19 04:08 RBC 3.35 M/mm3 (3.65-5.03) L 10/17/19 04:08 Hgb 10.0 gm/dl (11.8-15.2) L 10/17/19 04:08 Hct 31.2 % (35.5-45.6) L D 10/17/19 04:08 MCV 93 fl (84-94) 10/17/19 04:08 MCH 30 pg (28-32) 10/17/19 04:08 MCHC 32 % (32-34) 10/17/19 04:08 RDW 16.1 % (13.2-15.2) H 10/17/19 04:08 Plt Count 188 K/mm3 (140-440) 10/17/19 04:08 Add Manual Diff Complete 10/16/19 09:20 Total Counted 100 10/16/19 09:20 Seg Neutrophils % Application Defense Manager 10/09/19 10:52 Seg Neuts % (Manual) 79.0 % (40.0-70.0) H 10/16/19 09:20 Band Neutrophils % 12.0 % 10/16/19 09:20 Lymphocytes % (Manual) 4.0 % (13.4-35.0) L 10/16/19 09:20 Reactive Lymphs % (Man) 0 % 10/16/19 09:20 Monocytes % (Manual) 2.0 % (0.0-7.3) 10/16/19 09:20 Eosinophils % (Manual) 0 % (0.0-4.3) 10/16/19 09:20 Basophils % (Manual) 0 % (0.0-1.8) 10/16/19 09:20 Metamyelocytes % 2.0 % 10/16/19 09:20 Myelocytes % 1.0 % 10/16/19 09:20 Promyelocytes % 0 % 10/16/19 09:20 Blast Cells % 0 % 10/16/19 09:20 Nucleated RBC % Not Reportable 10/16/19 09:20 Seg Neutrophils # Man 11.5 K/mm3 (1.8-7.7) H 10/16/19 09:20 Band Neutrophils # 1.8 K/mm3 10/16/19 09:20 Lymphocytes # (Manual) 0.6 K/mm3 (1.2-5.4) L 10/16/19 09:20 Abs React Lymphs (Man) 0.0 K/mm3 10/16/19 09:20 Monocytes # (Manual) 0.3 K/mm3 (0.0-0.8) 10/16/19 09:20 Eosinophils # (Manual) 0.0 K/mm3 (0.0-0.4) 10/16/19 09:20 Basophils # (Manual) 0.0 K/mm3 (0.0-0.1) 10/16/19 09:20 Metamyelocytes # 0.3 K/mm3 10/16/19 09:20 Myelocytes # 0.1 K/mm3 10/16/19 09:20 Promyelocytes # 0.0 K/mm3 10/16/19 09:20 Blast Cells # 0.0 K/mm3 10/16/19 09:20 WBC Morphology Not Reportable 10/16/19 09:20 Hypersegmented Neuts Not Reportable 10/16/19 09:20 Hyposegmented Neuts Not Reportable 10/16/19 09:20 Hypogranular Neuts Not Reportable 10/16/19 09:20 Smudge Cells Not Reportable 10/16/19 09:20 Toxic Granulation Not Reportable 10/16/19 09:20 Toxic Vacuolation Not Reportable 10/16/19 09:20 Dohle Bodies Not Reportable 10/16/19 09:20 Pelger-Huet Anomaly Not Reportable 10/16/19 09:20 Andres Rods Not Reportable 10/16/19 09:20 Platelet Estimate Consistent w auto 10/16/19 09:20 Clumped Platelets Not Reportable 10/16/19 09:20 Plt Clumps, EDTA Not Reportable 10/16/19 09:20 Large Platelets Not Reportable 10/16/19 09:20 Giant Platelets Not Reportable 10/16/19 09:20 Platelet Satelliting Not Reportable 10/16/19 09:20 Plt Morphology Comment Not Reportable 10/16/19 09:20 RBC Morphology Not Reportable 10/16/19 09:20 Dimorphic RBCs Not Reportable 10/16/19 09:20 Polychromasia Few 10/16/19 09:20 Hypochromasia Few 10/16/19 09:20 Poikilocytosis Not Reportable 10/16/19 09:20 Anisocytosis Not Reportable 10/16/19 09:20 Microcytosis Not Reportable 10/16/19 09:20 Macrocytosis Not Reportable 10/16/19 09:20 Spherocytes Not Reportable 10/16/19 09:20 Pappenheimer Bodies Not Reportable 10/16/19 09:20 Sickle Cells Not Reportable 10/16/19 09:20 Target Cells Few 10/16/19 09:20 Tear Drop Cells Not Reportable 10/16/19 09:20 Ovalocytes Not Reportable 10/16/19 09:20 Helmet Cells Not Reportable 10/16/19 09:20 Varghese-Jaguas Bodies Not Reportable 10/16/19 09:20 [place] Rings Not Reportable 10/16/19 09:20 Bishnu Cells Not Reportable 10/16/19 09:20 Bite Cells Not Reportable 10/16/19 09:20 Crenated Cell Not Reportable 10/16/19 09:20 Elliptocytes Not Reportable 10/16/19 09:20 Acanthocytes (Spur) Not Reportable 10/16/19 09:20 Rouleaux Not Reportable 10/16/19 09:20 Hemoglobin C Crystals Not Reportable 10/16/19 09:20 Schistocytes Not Reportable 10/16/19 09:20 Malaria parasites Not Reportable 10/16/19 09:20 Toni Bodies Not Reportable 10/16/19 09:20 Hem Pathologist Commnt No 10/16/19 09:20 POC ABG pH 7.310 (7.35-7.45) L 10/17/19 05:41 ABG pH 7.418 pH Units (7.350-7.450) 10/18/19 04:50 POC ABG pCO2 52.8 (35-45) H 10/17/19 05:41 ABG pCO2 39.5 mm Hg 10/18/19 04:50 POC ABG pO2 70 (80-105) L 10/17/19 05:41 ABG pO2 78.8 mm Hg (80.0-90.0) L 10/18/19 04:50 POC ABG HCO3 26.6 (22-26 mml/L) 10/17/19 05:41 ABG HCO3 24.9 mmol/L (20.0-26.0) 10/18/19 04:50 POC ABG Total CO2 28 (23-27mmol/L) 10/17/19 05:41 POC ABG O2 Sat 92 10/17/19 05:41 ABG O2 Saturation 96.8 % (95.0-99.0) 10/18/19 04:50 ABG O2 Content 11.8 (0.0-44) 10/18/19 04:50 POC ABG Base Excess 0 ((-2) - (+3)mmol/L) 10/17/19 05:41 ABG Base Excess 0.4 mmol/L (-2.0-3.0) 10/18/19 04:50 ABG Hemoglobin 8.8 gm/dl (14.0-18.0) L 10/18/19 04:50 ABG Carboxyhemoglobin 1.2 % (0.0-5.0) 10/18/19 04:50 ABG Methemoglobin 0.5 % (0.0-1.5) 10/18/19 04:50 Oxyhemoglobin 95.2 % (95.0-99.0) 10/18/19 04:50 FiO2 45 % 10/18/19 04:50 Sodium 144 mmol/L (137-145) 10/18/19 03:29 Potassium 3.9 mmol/L (3.6-5.0) 10/18/19 03:29 Chloride 111.8 mmol/L (98-107) H 10/18/19 03:29 Carbon Dioxide 24 mmol/L (22-30) 10/18/19 03:29 Anion Gap 12 mmol/L 10/18/19 03:29 BUN 27 mg/dL (9-20) H 10/18/19 03:29 Creatinine 0.6 mg/dL (0.8-1.5) L 10/18/19 03:29 Estimated GFR > 60 ml/min 10/18/19 03:29 BUN/Creatinine Ratio 45 % 10/18/19 03:29 Glucose 140 mg/dL (75-100) H 10/18/19 03:29 POC Glucose 145 (70-105) H 10/18/19 05:45 Hemoglobin A1c 5.7 % (4-6) 10/06/19 05:36 Lactic Acid 1.10 mmol/L (0.7-2.0) 10/13/19 04:20 Calcium 7.1 mg/dL (8.4-10.2) L 10/18/19 03:29 Phosphorus 1.80 mg/dL (2.5-4.5) L 10/18/19 03:29 Magnesium 1.80 mg/dL (1.7-2.3) 10/18/19 03:29 Total Bilirubin 0.30 mg/dL (0.1-1.2) 10/15/19 04:32 Direct Bilirubin 0.3 mg/dL (0-0.2) H 10/12/19 09:30 Indirect Bilirubin 0.3 mg/dL 10/12/19 09:30 AST 72 units/L (5-40) H 10/15/19 04:32 ALT 31 units/L (7-56) 10/15/19 04:32 Alkaline Phosphatase 68 units/L (35-129) 10/15/19 04:32 Ammonia 49.0 umol/L (25-60) 10/13/19 04:20 Troponin T < 0.010 ng/mL (0.00-0.029) 10/09/19 17:23 C-Reactive Protein 30.60 mg/dL (0.00-1.30) H 10/15/19 04:32 Serum Total Protein 5.2 g/dL (6.1-8.1) L 10/11/19 09:00 Total Protein 4.0 g/dL (6.3-8.2) L D 10/15/19 04:32 Albumin 1.7 g/dL (3.9-5) L 10/15/19 04:32 Albumin/Globulin Ratio 0.7 % 10/15/19 04:32 Prealbumin 0.030 g/L (0.200-0.400) L 10/15/19 04:32 Pdoen-6-Utpyzktsj 0.9 g/dL (0.2-0.3) H 10/11/19 09:00 Txrmu-0-Hgihziiwv 1.0 g/dL (0.5-0.9) H 10/11/19 09:00 Beta Globulins 0.3 g/dL (0.2-0.5) 10/11/19 09:00 Gamma Globulins 0.7 g/dL (0.8-1.7) L 10/11/19 09:00 Abnorm Protein Band 1 see below 10/11/19 09:00 PEP Interpretation see below H 10/11/19 09:00 Triglycerides 114 mg/dL (2-149) 10/15/19 04:32 Urine Color Obdulia (Yellow) 10/11/19 06:23 Urine Turbidity Cloudy (Clear) 10/11/19 06:23 Urine pH 5.0 (5.0-7.0) 10/11/19 06:23 Ur Specific Gracey 1.018 (1.003-1.030) 10/11/19 06:23 Urine Protein 30 mg/dl mg/dL (Negative) 10/11/19 06:23 Urine Glucose (UA) Neg mg/dL (Negative) 10/11/19 06:23 Urine Ketones Neg mg/dL (Negative) 10/11/19 06:23 Urine Blood Mod (Negative) 10/11/19 06:23 Urine Nitrite Neg (Negative) 10/11/19 06:23 Urine Bilirubin Neg (Negative) 10/11/19 06:23 Urine Urobilinogen < 2.0 mg/dL (<2.0) 10/11/19 06:23 Ur Leukocyte Esterase Neg (Negative) 10/11/19 06:23 Urine WBC (Auto) 3.0 /HPF (0.0-6.0) 10/11/19 06:23 Urine RBC (Auto) 3.0 /HPF (0.0-6.0) 10/11/19 06:23 Urine Bacteria (Auto) 1+ /HPF (Negative) 10/11/19 06:23 Urine Eosinophils None seen (None Seen) 10/11/19 06:23 Urine Creatinine 116.8 mg/dL (0.1-20.0) H 10/11/19 06:23 Urine Creatinine 118.2 mg/dL (0.1-20.0) H 10/11/19 06:23 Protein/Creatinin Ratio 0.89 10/11/19 06:23 Urine Sodium 14 mmol/L 10/11/19 06:23 Urine Total Protein 104 mg/dL (5-11.8) H 10/11/19 06:23 Urine Total Protein 105 mg/dL (5-11.8) H 10/11/19 06:23 Blood Type A POSITIVE 10/16/19 11:58 Antibody Screen Negative 10/16/19 11:58 Crossmatch See Detail 10/16/19 11:58 Active Medications - Current Medications Current Medications: Generic Name Dose Route Start Last Admin Trade Name Freq PRN Reason Stop Dose Admin Acetaminophen 650 mg 10/15/19 10:00 10/17/19 08:18 Tylenol ID 650 mg Q4H PRN Administration Pain MILD(1-3)/Fever >100.5/ROMANO Albuterol 2.5 mg 10/05/19 21:36 Proventil IH Q4HRT PRN Shortness Of Breath Albuterol/Ipratropium 1 ampul 10/06/19 02:00 10/18/19 07:39 Duoneb *Not For Prn Use* IH Not Given Q6HRT VERÓNICA Arformoterol Tartrate 15 mcg 10/06/19 08:30 10/18/19 07:39 Brovana Nebu IH 15 mcg Q12HRT VERÓNICA Administration Budesonide 0.5 mg 10/07/19 12:20 10/18/19 07:38 Pulmicort IH 0.5 mg Q12HRT VERÓNICA Administration Enoxaparin Sodium 40 mg 10/19/19 22:00 Enoxaparin SUB-Q QDAY@2200 VERÓNICA Fentanyl 50 mcg 10/14/19 02:19 10/17/19 15:15 Sublimaze IV 50 mcg Q10MIN PRN Administration ANALGESIA Fluconazole 200 mls @ 100 mls/hr 10/12/19 11:00 10/18/19 09:41 Diflucan IV 100 mls/hr Q24HR VERÓNICA Administration Protocol Fentanyl Citrate 2,000 mcg in 100 mls @ 6.85 mls/hr 10/14/19 03:00 10/17/19 20:00 Fentanyl Drip Premix IV 0 mcg/kg/hr TITR VERÓNICA 0 mls/hr Titration Protocol 1 MCG/KG/HR Piperacillin Sod/Tazobactam Sod 4.5 gm in 100 mls @ 200 mls/hr 10/15/19 13:00 10/18/19 05:42 Zosyn/Ns 4.5gm/100ml IV 200 mls/hr Q6HR VERÓNICA Administration Protocol Amiodarone HCl 900 mg/ 500 mls @ 33.333 mls/hr 10/15/19 16:00 10/17/19 19:33 Dextrose IV 0.5 mg/min DIRECT VERÓNICA 16.667 mls/hr Administration Protocol 1 MG/MIN Sodium Chloride 1,000 mls @ 75 mls/hr 10/16/19 14:00 10/17/19 21:22 Nacl 0.45% 1000 Ml IV 75 mls/hr DIRECT VERÓNICA Administration Diltiazem HCl 100 mg in 100 mls @ 5 mls/hr 10/16/19 16:00 10/17/19 22:55 Cardizem/D5w 100mg/100ml IV 10 mg/hr TITR VERÓNICA 10 mls/hr Administration 5 MG/HR Sodium Chloride 1,000 mls @ 999 mls/hr 10/17/19 08:58 10/18/19 08:00 Nacl 0.45% 1000 Ml IV 999 mls/hr DIRECT PRN Infusion FOR WOUND VAC/ABD REPLACEMENT Amino Acids/Electrolytes/Dextrose 2,400 mls @ 100 mls/hr 10/17/19 20:00 10/17/19 21:11 Tpn Adult IV 10/18/19 19:59 100 mls/hr DAILY@2000 [facility] Administration Protocol Magnesium Sulfate 2 gm in 50 mls @ 25 mls/hr 10/18/19 09:00 10/18/19 09:41 Magnesium Sulfate 2gm/50ml IV 10/18/19 10:59 25 mls/hr ONCE ONE Administration Potassium Phosphate 15 mmol/ 255 mls @ 125 mls/hr 10/18/19 09:00 10/18/19 09 :41 Sodium Chloride IV 10/18/19 11:02 125 mls/hr ONCE ONE Administration Insulin Human Lispro 0 unit 10/14/19 12:00 10/18/19 05:41 Humalog SUB-Q Not Given Q6HR [facility] Protocol Metoprolol Tartrate 2.5 mg 10/15/19 15:34 10/18/19 00:05 Metoprolol IV 2.5 mg Q4HR PRN Administration HR >130 Multi-Ingred Cream/Lotion/Oil/Oint 1 applic 10/14/19 02:19 Artificial Tears Ophth Oint OU Q4HR PRN Dry Eye(s) Ondansetron HCl 4 mg 10/05/19 21:22 10/11/19 18:20 Zofran IV 4 mg Q3H PRN Administration Nausea And Vomiting Pantoprazole Sodium 40 mg 10/15/19 10:00 10/18/19 09:41 Protonix IV 40 mg QDAY VERÓNICA Administration Sodium Chloride 10 ml 10/05/19 21:22 10/17/19 09:34 Sodium Chloride Flush Syringe 10 Ml IV 10 ml PRN PRN Administration LINE FLUSH Nutrition/Malnutrition Assess - Dietary Evaluation Nutrition/Malnutrition Findings: Nutrition Notes Start: 10/08/19 11:36 Freq: Status: Active Protocol: Document 10/17/19 10:41 JENN (Rec: 10/17/19 11:35 JENN [id number]) Co-Sign 10/17/19 10:41 LM Nutrition Notes Initial or Follow up Reassessment Current Diagnosis Acute Kidney Injury,COPD, Hypertension Other Pertinent Diagnosis intra-abdominal infection, disruption of bowel anastomosis, LE edema Current Diet CPN at 100 ml/hr Labs/Tests Na 147 BUN 36 BG 165 Phos 2.2 Pertinent Medications Reviewed Height 6 ft Weight 151.8 kg Winder Body Weight (kg) 80.90 BMI 45.3 Weight Status Morbidly Obese Subjective/Other Information CPN day 4. Pt may get a feeding tube placement on Tuesday per chart. Percent of energy/protein needs met: 60%/74% Burn Absent Trauma Absent GI Symptoms None Current % PO Negligible Minimum of two criteria No Fluid Accumulation Mild (non-severe) #2 Nutrition Diagnosis Inadequate oral intake Diagnosis Progress(for reassessment Continues documentation) #1 Nutrition Diagnosis Increased nutrient needs ( specify in comment below) Diagnosis Progress(for reassessment Continues documentation) Is patient on ventilator? Yes Is Patient Ambulatory and/or Out of Bed No REE-([facility]-confined to bed) 2866.752 Kcal/Kg value to use for calculation 14 Approximate Energy Requirements Using 2125 kcal/Kg Calculation Used for Recommendations Kcal/kg Additional Notes Protein: 202g (up to 2.5 g/kg IBW 80.9 kg) Pay attention to renal issues Fluid: 1 ml/kcal or per MD Nutrition Intervention Change Diet Order: continue CPN Nutrition Support: CPN at 100 ml/hr: 30 mmol phos , Cl:acetate 0:100, MVI Kcal 1,280 Protein (gm) 150 Carbohydrates (gm) 200 Fat (gm) 0 Fluid (mL) 2,400 Fiber (gm) 0 Goal #1 Meet energy and protein needs as best as possible via CPN Anticipated Discharge Needs: unable to determine at this time Follow-Up By: 10/18/19 Additional Comments Labs in AM: BMP, Mg, Phos
[2019-10-18] MEDS ORDERED: K-PHOS NEUTRAL 250 MG TAB FEEDTUBE SCH (10:45)
--- NOTE | 2019-10-18 11:40 | Progress Note ---
Assessment and Plan Cultures 10/10/2019 surgical culture: No growth at 72 hours 10/13/2019 tracheal aspirate culture: No growth 10/13/2019 peritoneal fluid: Enterococcus species (S to Penicillin, Vancomycin) 10/15/2019 blood culture: no growth Assessment: 54 yo M PMhx CAD, COPD, recent complicated course of bowel perforation after a colonoscopy admitted with surgical site dehiscence of the fascia. Now with: 1. Acute sepsis - present with leukocytosis and tachycardia. Most likely secondary to fluid collection/abscess in the abdomen and anastomotic leak. 2. Intra-abdominal infection from anastomotic leak - s/p ex lap with closure of abdominal wall and wound vac placement (10/05/2019); s/p Re-exploration, washout , transection of colon, Abthera placement - 10/13/2019. s/p re-exploration and colostomy creation on 10/16/2019, intra-operatively was found to have "Small amount of continued leak from the old anastomotic site. Some contamination still present. Bowel was all viable". 3. COPD, acute respiratory failure: on the vent. 4. Penicillin allergy - likely not a true allergy, reviewed EMR for previous exposure to PCNs, patient received several days of Zosyn in 2018 without issue. Recs: - continue IV Zosyn 4.5 gm q6 hrs - continue fluconazole 400mg q24h - tentatively plan to stop antibiotics 48 hours post abdomen closure Julianna Pineda MD, FACP [facility] C: [phone] O: [phone] F: [phone] Subjective Date of service: 10/18/19 Principal diagnosis: acute renal failure Interval history: No fever. Remains stable, intubated, sedated. On TPN. Objective - Exam Narrative Exam: Physical Exam: Constitutional: sedated, intubated Head, Ears, Nose: Normocephalic, atraumatic. External ears, nose normal Eyes: Conjunctivae/corneas clear. No icterus. No ptosis. Neck: intubated Oral: intubated Cardiovascular: S1, S2 normal. Respiratory: Good air entry, clear to auscultation bilaterally GI: Midline abdominal VAC. bowel sounds absent. Colostomy + drain + Musculoskeletal: anasarca, pedal edema + Skin: No rash or abscess Hem/Lymphatic: No palpable cervical or supraclavicular nodes. No lymphangitis Psych: no agitation Neurological: sedated, intubated, on vent - Constitutional Vitals: Vital Signs Temp Pulse Resp BP Pulse Ox 98.6 F 87 31 H 140/65 99 10/18/19 08:00 10/18/19 11:22 10/18/19 11:22 10/18/19 07:40 10/18/19 11:22 Temperature -Last 24 Hours Temperature 98.6 F Temperature 98.9 F Temperature 98.9 F Temperature 98.2 F Temperature 98.2 F Temperature 97.0 F Temperature 97.0 F Temperature 98.3 F - Labs CBC & Chem 7: 10/17/19 04:08 10/18/19 03:29 Labs: Abnormal lab results 10/17/19 10/17/19 10/17/19 Range/Units 11:33 18:17 23:34 ABG pO2 (80.0-90.0) mm Hg ABG Hemoglobin (14.0-18.0) gm/dl Chloride (98-107) mmol/L BUN (9-20) mg/dL Creatinine (0.8-1.5) mg/dL Glucose (75-100) mg/dL POC Glucose 154 H 163 H 135 H (70-105) Calcium (8.4-10.2) mg/dL Phosphorus (2.5-4.5) mg/dL 10/18/19 10/18/19 10/18/19 Range/Units 03:29 04:50 05:45 ABG pO2 78.8 L (80.0-90.0) mm Hg ABG Hemoglobin 8.8 L (14.0-18.0) gm/dl Chloride 111.8 H (98-107) mmol/L BUN 27 H (9-20) mg/dL Creatinine 0.6 L (0.8-1.5) mg/dL Glucose 140 H (75-100) mg/dL POC Glucose 145 H (70-105) Calcium 7.1 L (8.4-10.2) mg/dL Phosphorus 1.80 L (2.5-4.5) mg/dL
--- NOTE | 2019-10-18 12:31 | Progress Note ---
Assessment and Plan Acute Renal Failure likely secondary to ischemic ATN due to Sepsis, Resolved Hypernatremia: Hypocalcemia: -hyponatremia and GUILLERMO resolved -Obtain daily weights -Strict I/O's -Continue to monitor Dehiscence of closure of fascia, superficial or muscular -S/P multiple abdominal surgeries -S/P CT guided placement of a 8 Fr APD drain in the RUQ and RLQ by IR today -Gen surgeon onboard Hypertension -Stable -Adjust regimen as needed will sign off, please re-consult if needed Tylor Musa MD [phone] Subjective Date of service: 10/18/19 Principal diagnosis: acute renal failure Objective - Vital Signs Vital signs: Vital Signs - 12hr 10/18/19 10/18/19 10/18/19 01:00 01:30 02:00 Temperature Pulse Rate 109 H 123 H 117 H Pulse Rate [ Anterior Left Throughout] Pulse Rate [ Anterior Right Throughout] Pulse Rate [ From Monitor] Respiratory 26 H 28 H 29 H Rate Respiratory Rate [Anterior Left Throughout ] Respiratory Rate [Anterior Right Throughout] Blood Pressure 121/59 136/51 123/60 O2 Sat by Pulse 99 100 100 Oximetry 10/18/19 10/18/19 10/18/19 02:30 03:00 03:28 Temperature Pulse Rate 75 78 Pulse Rate [ Anterior Left Throughout] Pulse Rate [ Anterior Right Throughout] Pulse Rate [ 80 From Monitor] Respiratory 28 H 29 H Rate Respiratory Rate [Anterior Left Throughout ] Respiratory Rate [Anterior Right Throughout] Blood Pressure 130/64 128/58 O2 Sat by Pulse 100 100 100 Oximetry 10/18/19 10/18/19 10/18/19 03:30 04:00 04:29 Temperature 98.9 F Pulse Rate 79 82 83 Pulse Rate [ Anterior Left Throughout] Pulse Rate [ Anterior Right Throughout] Pulse Rate [ From Monitor] Respiratory 30 H 30 H Rate Respiratory Rate [Anterior Left Throughout ] Respiratory Rate [Anterior Right Throughout] Blood Pressure 125/65 129/64 134/61 O2 Sat by Pulse 100 100 100 Oximetry 10/18/19 10/18/19 10/18/19 04:30 04:33 05:00 Temperature 98.9 F Pulse Rate 83 86 Pulse Rate [ 84 Anterior Left Throughout] Pulse Rate [ 84 Anterior Right Throughout] Pulse Rate [ From Monitor] Respiratory 29 H 31 H Rate Respiratory 30 H Rate [Anterior Left Throughout ] Respiratory 30 H Rate [Anterior Right Throughout] Blood Pressure 134/68 128/56 O2 Sat by Pulse 100 97 Oximetry 10/18/19 10/18/19 10/18/19 05:30 06:00 07:39 Temperature Pulse Rate 85 85 Pulse Rate [ 84 Anterior Left Throughout] Pulse Rate [ 84 Anterior Right Throughout] Pulse Rate [ From Monitor] Respiratory 28 H 24 Rate Respiratory 33 H Rate [Anterior Left Throughout ] Respiratory 31 H Rate [Anterior Right Throughout] Blood Pressure 132/60 140/65 O2 Sat by Pulse 97 99 Oximetry 10/18/19 10/18/19 10/18/19 07:40 08:00 11:22 Temperature 98.6 F Pulse Rate 85 87 Pulse Rate [ Anterior Left Throughout] Pulse Rate [ Anterior Right Throughout] Pulse Rate [ From Monitor] Respiratory 32 H 31 H Rate Respiratory Rate [Anterior Left Throughout ] Respiratory Rate [Anterior Right Throughout] Blood Pressure 140/65 O2 Sat by Pulse 99 99 Oximetry - Lab 10/17/19 04:08 10/18/19 03:29 Most recent lab results ABG pH 7.418 pH Units (7.350-7.450) 10/18/19 04:50 ABG pCO2 39.5 mm Hg 10/18/19 04:50 ABG pO2 78.8 mm Hg (80.0-90.0) L 10/18/19 04:50 ABG HCO3 24.9 mmol/L (20.0-26.0) 10/18/19 04:50 ABG O2 Saturation 96.8 % (95.0-99.0) 10/18/19 04:50 Calcium 7.1 mg/dL (8.4-10.2) L 10/18/19 03:29 Phosphorus 1.80 mg/dL (2.5-4.5) L 10/18/19 03:29 Magnesium 1.80 mg/dL (1.7-2.3) 10/18/19 03:29 Urine Creatinine 116.8 mg/dL (0.1-20.0) H 10/11/19 06:23 Urine Creatinine 118.2 mg/dL (0.1-20.0) H 10/11/19 06:23 Urine Sodium 14 mmol/L 10/11/19 06:23 Urine Total Protein 104 mg/dL (5-11.8) H 10/11/19 06:23 Urine Total Protein 105 mg/dL (5-11.8) H 10/11/19 06:23 Medications & Allergies - Medications Allergies/Adverse Reactions: Allergies Sulfa (Sulfonamide Antibiotics) Allergy (Severe, Verified 03/22/16 18:34) Rash oxytetracycline [From Terramycin] Allergy (Verified 03/22/16 10:32) Unknown oxytetracycline HCl [From Terramycin] Allergy (Verified 03/22/16 10:32) Unknown Home Medications: Home Medications Medication Instructions Recorded Confirmed Last Taken Type ALBUTEROL Inhaler (OR & NICU) 2 puff IH QID PRN #1 inhalation 08/17/18 10/06/19 Unknown Rx [ProAir HFA Inhaler] Arformoterol Nebu [Brovana Nebu] 15 mcg IH Q12HRT ml 08/17/18 10/06/19 10/05/19 Rx Benzonatate [Tessalon Perles] 100 mg PO Q8HR capsule 08/17/18 10/06/19 10/03/19 21:00 Rx Citalopram [Celexa] 20 mg PO QDAY #30 tablet 08/17/18 10/06/19 10/04/19 Rx Ipratropium/Albuterol Sulfate 1 ampul IH Q6HRT #30 ampul.neb 08/17/18 10/06/19 10/05/19 21:00 Rx [DUONEB *Not for PRN Use*] Lisinopril [Zestril TAB] 20 mg PO DAILY #30 tablet 08/17/18 10/06/19 10/05/19 08:00 Rx Metoprolol [Lopressor TAB] 100 mg PO BID #60 tablet 08/17/18 10/06/19 10/05/19 08:00 Rx Pravastatin [Pravachol] 40 mg PO QHS #30 tablet 08/17/18 10/06/19 10/04/19 22:00 Rx Symbicort 160-4.5 Mcg Inhaler 1 puff INHALATION BID #30 08/17/18 10/06/19 09/05/19 23:00 Rx Acetaminophen [Acetaminophen TAB] 2 tab PO Q4H PRN #30 tablet 10/03/19 10/06/19 Unknown Rx Bisacodyl [Dulcolax suppos] 10 mg SC QDAY PRN #4 supp.rect 10/03/19 10/06/19 Unknown Rx Pantoprazole [Protonix TAB] 40 mg PO BID #60 tablet 10/03/19 10/06/19 10/04/19 21:00 Rx Sucralfate [Carafate] 1 gm PO Q6HR 30 Days oral.liqd 10/03/19 10/06/19 10/05/19 08:00 Rx levoFLOXacin [Levaquin TAB] 750 mg PO QDAY #2 tablet 10/03/19 10/06/19 10/04/19 08:00 Rx oxyCODONE /ACETAMINOPHEN [Percocet 1 tab PO Q4H PRN #26 tablet 10/03/19 10/06/19 10/04/19 21:00 Rx 5/325 mg] Active Medications: Generic Name Dose Route Start Last Admin Trade Name Freq PRN Reason Stop Dose Admin Acetaminophen 650 mg 10/15/19 10:00 10/17/19 08:18 Tylenol SC 650 mg Q4H PRN Administration Pain MILD(1-3)/Fever >100.5/ROMANO Albuterol 2.5 mg 10/05/19 21:36 Proventil IH Q4HRT PRN Shortness Of Breath Albuterol/Ipratropium 1 ampul 10/06/19 02:00 10/18/19 07:39 Duoneb *Not For Prn Use* IH Not Given Q6HRT VERÓNICA Arformoterol Tartrate 15 mcg 10/06/19 08:30 10/18/19 07:39 Brovana Nebu IH 15 mcg Q12HRT VERÓNICA Administration Budesonide 0.5 mg 10/07/19 12:20 10/18/19 07:38 Pulmicort IH 0.5 mg Q12HRT VERÓNICA Administration Enoxaparin Sodium 40 mg 10/19/19 22:00 Enoxaparin SUB-Q QDAY@2200 VERÓNICA Fentanyl 50 mcg 10/14/19 02:19 10/17/19 15:15 Sublimaze IV 50 mcg Q10MIN PRN Administration ANALGESIA Fluconazole 200 mls @ 100 mls/hr 10/12/19 11:00 10/18/19 09:41 Diflucan IV 100 mls/hr Q24HR VERÓNICA Administration Protocol Fentanyl Citrate 2,000 mcg in 100 mls @ 6.85 mls/hr 10/14/19 03:00 10/17/19 20:00 Fentanyl Drip Premix IV 0 mcg/kg/hr TITR VERÓNICA 0 mls/hr Titration Protocol 1 MCG/KG/HR Piperacillin Sod/Tazobactam Sod 4.5 gm in 100 mls @ 200 mls/hr 10/15/19 13:00 10/18/19 05:42 Zosyn/Ns 4.5gm/100ml IV 200 mls/hr Q6HR VERÓNICA Administration Protocol Amiodarone HCl 900 mg/ 500 mls @ 33.333 mls/hr 10/15/19 16:00 10/17/19 19:33 Dextrose IV 0.5 mg/min DIRECT VERÓNICA 16.667 mls/hr Administration Protocol 1 MG/MIN Sodium Chloride 1,000 mls @ 75 mls/hr 10/16/19 14:00 10/17/19 21:22 Nacl 0.45% 1000 Ml IV 75 mls/hr DIRECT VERÓNICA Administration Diltiazem HCl 100 mg in 100 mls @ 5 mls/hr 10/16/19 16:00 10/17/19 22:55 Cardizem/D5w 100mg/100ml IV 10 mg/hr TITR VERÓNICA 10 mls/hr Administration 5 MG/HR Sodium Chloride 1,000 mls @ 999 mls/hr 10/17/19 08:58 10/18/19 08:00 Nacl 0.45% 1000 Ml IV 999 mls/hr DIRECT PRN Infusion FOR WOUND VAC/ABD REPLACEMENT Amino Acids/Electrolytes/Dextrose 2,400 mls @ 100 mls/hr 10/17/19 20:00 10/17/19 21:11 Tpn Adult IV 10/18/19 19:59 100 mls/hr DAILY@2000 VERÓNICA Administration Protocol Insulin Human Lispro 0 unit 10/14/19 12:00 10/18/19 05:41 Humalog SUB-Q Not Given Q6HR VERÓNICA Protocol Metoprolol Tartrate 2.5 mg 10/15/19 15:34 10/18/19 00:05 Metoprolol IV 2.5 mg Q4HR PRN Administration HR >130 Multi-Ingred Cream/Lotion/Oil/Oint 1 applic 10/14/19 02:19 Artificial Tears Ophth Oint OU Q4HR PRN Dry Eye(s) Ondansetron HCl 4 mg 10/05/19 21:22 10/11/19 18:20 Zofran IV 4 mg Q3H PRN Administration Nausea And Vomiting Pantoprazole Sodium 40 mg 10/15/19 10:00 10/18/19 09:41 Protonix IV 40 mg QDAY VERÓNICA Administration Sodium Chloride 10 ml 10/05/19 21:22 10/17/19 09:34 Sodium Chloride Flush Syringe 10 Ml IV 10 ml PRN PRN Administration LINE FLUSH
--- NOTE | 2019-10-18 13:24 | Progress Note ---
Assessment and Plan Atrial fibrillation/flutter, spontaneously reverted to sinus rhythm treated with adenosine x1 on 10/15 on IV amiodarone; IV diltiazem has been discontinued Sepsis Severe abdominal pain s/p exploratory laparotomy, abdominal washout, closure of abdominal fascia with wound vac placement. Recent colon resection for bowel perforation following a colonoscopy Atypical chest pain chest CT reports left lower lobe pleural effusion with suspected left upper lobe pneumonia. troponins are normal Hx of [place]/CAD PCI of the circumflex and second vessel POBA of the distal LAD occlusion. Left ventricle fraction 45-50%. Tobacco abuse COPD Hypertension Hyperlipidemia Recommend: Continue medical therapy for atrial fibrillation with intravenous amiodarone. Intravenous metoprolol and digixin with be added, in addition, for suppression. Subjective Date of service: 10/18/19 Principal diagnosis: acute renal failure Interval history: Patient has reverted to a stable sinus rhythm on telemetry. IV diltiazem has been discontinued. IV amiodarone continues. Objective Vital Signs Temp Pulse Pulse Pulse Pulse Resp Resp 10/18/19 13:00 90 31 H 10/18/19 12:45 91 H 33 H 10/18/19 12:30 90 35 H 10/18/19 12:15 89 33 H 10/18/19 12:00 98.3 F 88 17 10/18/19 11:45 10/18/19 11:30 104 H 29 H 10/18/19 11:22 87 31 H 10/18/19 11:16 89 28 H 10/18/19 11:00 86 33 H 10/18/19 10:45 85 31 H 10/18/19 10:30 88 34 H 10/18/19 10:15 85 34 H 10/18/19 10:00 86 32 H 28 H 10/18/19 09:46 83 27 H 10/18/19 09:30 86 33 H 10/18/19 09:15 85 30 H 10/18/19 09:00 86 29 H 10/18/19 08:45 86 29 H 10/18/19 08:30 86 31 H 10/18/19 08:15 84 29 H 10/18/19 08:00 98.6 F 84 23 10/18/19 07:46 84 21 10/18/19 07:40 85 32 H 10/18/19 07:39 84 84 10/18/19 07:30 87 29 H 12/05/19 07:15 87 30 H 10/18/19 07:00 84 29 H 10/18/19 06:45 85 27 H 10/18/19 06:30 85 28 H 10/18/19 06:15 84 28 H 10/18/19 06:00 85 24 10/18/19 05:30 85 28 H 10/18/19 05:00 98.9 F 86 31 H 10/18/19 04:33 84 84 10/18/19 04:30 83 29 H 10/18/19 04:29 83 10/18/19 04:00 98.9 F 82 30 H 10/18/19 03:30 79 30 H 10/18/19 03:28 80 10/18/19 03:00 78 29 H 10/18/19 02:30 75 28 H 10/18/19 02:00 117 H 29 H 10/18/19 01:30 123 H 28 H 10/18/19 01:00 109 H 26 H 10/18/19 00:30 106 H 28 H 10/18/19 00:18 122 H 10/18/19 00:05 164 H 10/18/19 00:02 164 H 29 H 10/18/19 00:00 98.2 F 105 H 29 H 10/17/19 23:33 98.2 F 165 H 25 H 10/17/19 23:30 166 H 26 H 10/17/19 23:26 165 H 28 H 10/17/19 23:22 165 H 26 H 10/17/19 23:00 163 H 29 H 10/17/19 22:55 164 H 10/17/19 22:30 165 H 29 H 10/17/19 22:00 164 H 27 H 10/17/19 21:30 163 H 24 10/17/19 21:00 163 H 29 H 10/17/19 20:30 163 H 29 H 10/17/19 20:00 97.0 F L 163 H 130 H 30 H 10/17/19 19:57 130 H 130 H 10/17/19 19:52 130 H 10/17/19 19:30 159 H 29 H 10/17/19 19:23 164 H 10/17/19 19:00 97.0 F L 163 H 28 H 12/04/19 18:30 163 H 28 H 10/17/19 18:00 162 H 30 H 10/17/19 17:30 163 H 27 H 10/17/19 17:00 162 H 30 H 10/17/19 16:30 161 H 25 H 10/17/19 16:00 160 H 27 H 10/17/19 15:47 162 H 10/17/19 15:30 159 H 20 10/17/19 15:00 98.3 F 159 H 27 H 10/17/19 14:30 153 H 28 H 10/17/19 14:00 158 H 28 H 10/17/19 13:56 162 H 10/17/19 13:30 28 H Resp Resp BP Pulse Ox 10/18/19 13:00 128/64 98 10/18/19 12:45 128/64 98 10/18/19 12:30 134/64 99 10/18/19 12:15 134/64 99 10/18/19 12:00 132/59 98 10/18/19 11:45 132/59 99 10/18/19 11:30 137/63 99 10/18/19 11:22 99 10/18/19 11:16 137/63 100 10/18/19 11:00 128/65 100 10/18/19 10:45 128/65 99 10/18/19 10:30 139/61 99 10/18/19 10:15 139/61 100 10/18/19 10:00 129/55 99 10/18/19 09:46 129/55 99 10/18/19 09:30 130/57 99 10/18/19 09:15 130/57 100 10/18/19 09:00 132/64 99 10/18/19 08:45 132/64 100 10/18/19 08:30 137/65 100 10/18/19 08:15 137/65 100 10/18/19 08:00 128/74 100 10/18/19 07:46 128/74 100 10/18/19 07:40 140/65 99 10/18/19 07:39 33 H 31 H 10/18/19 07:30 135/56 99 10/18/19 07:15 137/64 100 10/18/19 07:00 132/60 100 10/18/19 06:45 134/60 100 10/18/19 06:30 129/61 99 10/18/19 06:15 129/61 99 10/18/19 06:00 140/65 99 10/18/19 05:30 132/60 97 10/18/19 05:00 128/56 97 10/18/19 04:33 30 H 30 H 10/18/19 04:30 134/68 100 10/18/19 04:29 134/61 100 10/18/19 04:00 129/64 100 10/18/19 03:30 125/65 100 10/18/19 03:28 100 10/18/19 03:00 128/58 100 10/18/19 02:30 130/64 100 10/18/19 02:00 123/60 100 10/18/19 01:30 136/51 100 10/18/19 01:00 121/59 99 10/18/19 00:30 106/55 100 10/18/19 00:18 106/55 100 10/18/19 00:05 125/83 10/18/19 00:02 125/83 100 10/18/19 00:00 129/78 100 10/17/19 23:33 129/76 100 10/17/19 23:30 133/81 100 10/17/19 23:26 135/59 100 10/17/19 23:22 100 10/17/19 23:00 133/82 100 10/17/19 22:55 133/82 10/17/19 22:30 121/77 100 10/17/19 22:00 136/80 99 10/17/19 21:30 129/77 100 10/17/19 21:00 132/81 100 10/17/19 20:30 135/59 100 10/17/19 20:00 127/78 100 10/17/19 19:57 29 H 29 H 10/17/19 19:52 135/59 98 10/17/19 19:30 130/78 98 10/17/19 19:23 132/82 10/17/19 19:00 120/81 97 10/17/19 18:30 128/80 96 10/17/19 18:00 127/75 97 10/17/19 17:30 146/75 96 10/17/19 17:00 135/87 97 10/17/19 16:30 153/75 97 10/17/19 16:00 139/80 96 10/17/19 15:47 129/75 98 10/17/19 15:30 139/80 97 10/17/19 15:00 140/75 95 10/17/19 14:30 116/63 97 10/17/19 14:00 129/75 98 10/17/19 13:56 129/75 10/17/19 13:30 127/74 97 - Physical Examination General: Other (intubated, unresponsive on the vent) Cardiac: Positive: Reg Rate and Rhythm Abdomen: Positive: Other (abdominal wound vac is in place) - Labs and Meds Comprehensive Metabolic Panel 10/18/19 Range/Units 03:29 Sodium 144 (137-145) mmol/L Potassium 3.9 (3.6-5.0) mmol/L Chloride 111.8 H (98-107) mmol/L Carbon Dioxide 24 (22-30) mmol/L BUN 27 H (9-20) mg/dL Creatinine 0.6 L (0.8-1.5) mg/dL Glucose 140 H (75-100) mg/dL Calcium 7.1 L (8.4-10.2) mg/dL
[2019-10-18] MEDS: DIGOXIN 0.5 MG/2 ML INJ IV SCH (14:36)
[2019-10-18] MEDS: METOPROLOL TARTRATE 5 MG/5 ML INJ IV SCH ×3 (14:36→22:44)
[2019-10-18] MEDS: SODIUM CHLORIDE 0.45% 1000 ML 1,000 ML IV SCH (15:21)
--- NOTE | 2019-10-18 16:00 | Progress Note ---
Assessment and Plan 54 y/o male with anastomic leak 10/18: No new recommendations for today. Continue PRN pain control. Boluses for BP if needed. Appreciate cards help with rate control. 1. CV-tachycardia but stable BP. Was ok on Amio and Dilt but when BP started dropping, we stopped the dilt. Now rate back up and not controlled on 5. Spoke to nursing about increasing to 10. Continue fluid boluses for BP as needed. Trying not to start pressors if possible. 2. Pulm-stable on Vent. FiO2 down to 45% prior to go to OR. CXR shows right lower lobe airspace disease (10/15). Light green substance in ET tube has stopped. Continue current vent management. Wean once all surgeries are done. 3. GI-Going back to OR again on Tuesday for Washout. 4. Renal- Renal function and output have improved. Will continue to monitor. Had a large volume out that we are actively replacing. This may have added to hypotension this am. 5. Neuro- on rounds, per nursing, patient did not wake up during sedation vacation. Stopping all sedation now. If not able to control rate with drugs, could be related to pain. Spoke to nursing to use PRN pushes to see if this helps HR as well. If patient's mental state does not improve post all surgeries, may need CT head, EEG and neurology evaluation. 6. ID-continues to spike temps. ID following. Defer to them for repeat cultures. Blood has been negative. 7. Electrolytes-Reviewed renal note from yesterday. Overall prognosis is guarded. Will continue to follow. CCT 31 minutes. Subjective Date of service: 10/18/19 Principal diagnosis: acute renal failure Interval history: No acute events. HR better. BP stable. Mental status is slightly better. All sedation off. Objective Vital Signs - 12hr 10/18/19 10/18/19 10/18/19 04:00 04:29 04:30 Temperature 98.9 F Pulse Rate 82 83 83 Pulse Rate [ Anterior Left Throughout] Pulse Rate [ Anterior Right Throughout] Pulse Rate [ From Monitor] Respiratory 30 H 29 H Rate Respiratory Rate [Abdomen] Respiratory Rate [Anterior Left Throughout ] Respiratory Rate [Anterior Right Throughout] Blood Pressure 129/64 134/61 134/68 O2 Sat by Pulse 100 100 100 Oximetry 10/18/19 10/18/19 10/18/19 04:33 05:00 05:30 Temperature 98.9 F Pulse Rate 86 85 Pulse Rate [ 84 Anterior Left Throughout] Pulse Rate [ 84 Anterior Right Throughout] Pulse Rate [ From Monitor] Respiratory 31 H 28 H Rate Respiratory Rate [Abdomen] Respiratory 30 H Rate [Anterior Left Throughout ] Respiratory 30 H Rate [Anterior Right Throughout] Blood Pressure 128/56 132/60 O2 Sat by Pulse 97 97 Oximetry 10/18/19 10/18/19 10/18/19 06:00 06:15 06:30 Temperature Pulse Rate 85 84 85 Pulse Rate [ Anterior Left Throughout] Pulse Rate [ Anterior Right Throughout] Pulse Rate [ From Monitor] Respiratory 24 28 H 28 H Rate Respiratory Rate [Abdomen] Respiratory Rate [Anterior Left Throughout ] Respiratory Rate [Anterior Right Throughout] Blood Pressure 140/65 129/61 129/61 O2 Sat by Pulse 99 99 99 Oximetry 10/18/19 10/18/19 10/18/19 06:45 07:00 07:15 Temperature Pulse Rate 85 84 87 Pulse Rate [ Anterior Left Throughout] Pulse Rate [ Anterior Right Throughout] Pulse Rate [ From Monitor] Respiratory 27 H 29 H 30 H Rate Respiratory Rate [Abdomen] Respiratory Rate [Anterior Left Throughout ] Respiratory Rate [Anterior Right Throughout] Blood Pressure 134/60 132/60 137/64 O2 Sat by Pulse 100 100 100 Oximetry 10/18/19 10/18/19 10/18/19 07:30 07:39 07:40 Temperature Pulse Rate 87 85 Pulse Rate [ 84 Anterior Left Throughout] Pulse Rate [ 84 Anterior Right Throughout] Pulse Rate [ From Monitor] Respiratory 29 H 32 H Rate Respiratory Rate [Abdomen] Respiratory 33 H Rate [Anterior Left Throughout ] Respiratory 31 H Rate [Anterior Right Throughout] Blood Pressure 135/56 140/65 O2 Sat by Pulse 99 99 Oximetry 10/18/19 10/18/19 10/18/19 07:46 08:00 08:15 Temperature 98.6 F Pulse Rate 84 84 84 Pulse Rate [ Anterior Left Throughout] Pulse Rate [ Anterior Right Throughout] Pulse Rate [ 84 From Monitor] Respiratory 21 23 29 H Rate Respiratory Rate [Abdomen] Respiratory Rate [Anterior Left Throughout ] Respiratory Rate [Anterior Right Throughout] Blood Pressure 128/74 128/74 137/65 O2 Sat by Pulse 100 100 100 Oximetry 10/18/19 10/18/19 10/18/19 08:30 08:45 09:00 Temperature Pulse Rate 86 86 86 Pulse Rate [ Anterior Left Throughout] Pulse Rate [ Anterior Right Throughout] Pulse Rate [ From Monitor] Respiratory 31 H 29 H 29 H Rate Respiratory Rate [Abdomen] Respiratory Rate [Anterior Left Throughout ] Respiratory Rate [Anterior Right Throughout] Blood Pressure 137/65 132/64 132/64 O2 Sat by Pulse 100 100 99 Oximetry 10/18/19 10/18/19 10/18/19 09:15 09:30 09:46 Temperature Pulse Rate 85 86 83 Pulse Rate [ Anterior Left Throughout] Pulse Rate [ Anterior Right Throughout] Pulse Rate [ From Monitor] Respiratory 30 H 33 H 27 H Rate Respiratory Rate [Abdomen] Respiratory Rate [Anterior Left Throughout ] Respiratory Rate [Anterior Right Throughout] Blood Pressure 130/57 130/57 129/55 O2 Sat by Pulse 100 99 99 Oximetry 10/18/19 10/18/19 10/18/19 10:00 10:15 10:30 Temperature Pulse Rate 86 85 88 Pulse Rate [ Anterior Left Throughout] Pulse Rate [ Anterior Right Throughout] Pulse Rate [ From Monitor] Respiratory 32 H 34 H 34 H Rate Respiratory 28 H Rate [Abdomen] Respiratory Rate [Anterior Left Throughout ] Respiratory Rate [Anterior Right Throughout] Blood Pressure 129/55 139/61 139/61 O2 Sat by Pulse 99 100 99 Oximetry 10/18/19 10/18/19 10/18/19 10:45 11:00 11:16 Temperature Pulse Rate 85 86 89 Pulse Rate [ Anterior Left Throughout] Pulse Rate [ Anterior Right Throughout] Pulse Rate [ From Monitor] Respiratory 31 H 33 H 28 H Rate Respiratory Rate [Abdomen] Respiratory Rate [Anterior Left Throughout ] Respiratory Rate [Anterior Right Throughout] Blood Pressure 128/65 128/65 137/63 O2 Sat by Pulse 99 100 100 Oximetry 10/18/19 10/18/19 10/18/19 11:22 11:30 11:45 Temperature Pulse Rate 87 104 H Pulse Rate [ Anterior Left Throughout] Pulse Rate [ Anterior Right Throughout] Pulse Rate [ From Monitor] Respiratory 31 H 29 H Rate Respiratory Rate [Abdomen] Respiratory Rate [Anterior Left Throughout ] Respiratory Rate [Anterior Right Throughout] Blood Pressure 137/63 132/59 O2 Sat by Pulse 99 99 99 Oximetry 10/18/19 10/18/19 10/18/19 12:00 12:15 12:30 Temperature 98.3 F Pulse Rate 88 89 90 Pulse Rate [ Anterior Left Throughout] Pulse Rate [ Anterior Right Throughout] Pulse Rate [ 92 H From Monitor] Respiratory 17 33 H 35 H Rate Respiratory Rate [Abdomen] Respiratory Rate [Anterior Left Throughout ] Respiratory Rate [Anterior Right Throughout] Blood Pressure 132/59 134/64 134/64 O2 Sat by Pulse 98 99 99 Oximetry 10/18/19 10/18/19 10/18/19 12:45 13:00 13:48 Temperature Pulse Rate 91 H 90 Pulse Rate [ 90 Anterior Left Throughout] Pulse Rate [ 91 H Anterior Right Throughout] Pulse Rate [ From Monitor] Respiratory 33 H 31 H Rate Respiratory Rate [Abdomen] Respiratory 28 H Rate [Anterior Left Throughout ] Respiratory 27 H Rate [Anterior Right Throughout] Blood Pressure 128/64 128/64 O2 Sat by Pulse 98 98 Oximetry 10/18/19 10/18/19 14:36 15:52 Temperature Pulse Rate 91 H 91 H Pulse Rate [ Anterior Left Throughout] Pulse Rate [ Anterior Right Throughout] Pulse Rate [ From Monitor] Respiratory 31 H Rate Respiratory Rate [Abdomen] Respiratory Rate [Anterior Left Throughout ] Respiratory Rate [Anterior Right Throughout] Blood Pressure 128/64 128/64 O2 Sat by Pulse 98 Oximetry Constitutional: alert Eyes: non-icteric ENT: oropharynx moist Neck: supple Effort: normal Ascultation: Bilateral: diminished breath sounds Cardiovascular: regular rate and rhythm Gastrointestinal: tender Integumentary: normal Extremities: no cyanosis Neurologic: normal mental status, non-focal exam Psychiatric: mood appropriate, affect normal CBC and BMP: 10/17/19 04:08 10/18/19 03:29 ABG, PT/INR, D-dimer: ABG POC ABG pH 7.310 (7.35-7.45) L 10/17/19 05:41 ABG pH 7.418 pH Units (7.350-7.450) 10/18/19 04:50 POC ABG pCO2 52.8 (35-45) H 10/17/19 05:41 ABG pCO2 39.5 mm Hg 10/18/19 04:50 POC ABG pO2 70 (80-105) L 10/17/19 05:41 ABG pO2 78.8 mm Hg (80.0-90.0) L 10/18/19 04:50 POC ABG HCO3 26.6 (22-26 mml/L) 10/17/19 05:41 POC ABG Total CO2 28 (23-27mmol/L) 10/17/19 05:41 POC ABG O2 Sat 92 10/17/19 05:41 ABG O2 Saturation 96.8 % (95.0-99.0) 10/18/19 04:50 Abnormal lab findings: Abnormal Labs 10/06/19 10/06/19 10/07/19 05:36 05:36 05:54 WBC 21.8 H 21.5 H RBC 3.55 L Hgb 10.9 L Hct 32.7 L RDW Plt Count Seg Neuts % (Manual) 91.0 H Lymphocytes % (Manual) 2.0 L Seg Neutrophils # Man 19.8 H Lymphocytes # (Manual) 0.4 L Monocytes # (Manual) 1.1 H POC ABG pH ABG pH POC ABG pCO2 POC ABG pO2 ABG pO2 ABG HCO3 ABG Base Excess ABG Hemoglobin Oxyhemoglobin Sodium 135 L Potassium Chloride 95.9 L Carbon Dioxide BUN Creatinine 0.7 L Glucose POC Glucose Calcium Phosphorus Magnesium Direct Bilirubin AST C-Reactive Protein Serum Total Protein Total Protein 5.7 L Albumin 2.5 L Prealbumin Zlvuv-2-Pygodiilb Padgo-0-Yhpdahhir Gamma Globulins PEP Interpretation Urine Creatinine Urine Total Protein Crossmatch 10/07/19 10/09/19 10/09/19 05:54 10:52 10:52 WBC 16.6 H RBC Hgb Hct RDW Plt Count 498 H Seg Neuts % (Manual) 93.0 H Lymphocytes % (Manual) 5.0 L Seg Neutrophils # Man 15.4 H Lymphocytes # (Manual) 0.8 L Monocytes # (Manual) POC ABG pH ABG pH POC ABG pCO2 POC ABG pO2 ABG pO2 ABG HCO3 ABG Base Excess ABG Hemoglobin Oxyhemoglobin Sodium Potassium Chloride 97.9 L Carbon Dioxide 20 L D BUN 23 H Creatinine 1.7 H D Glucose 109 H POC Glucose Calcium 8.1 L Phosphorus Magnesium Direct Bilirubin AST C-Reactive Protein Serum Total Protein Total Protein Albumin Prealbumin Pfxwd-0-Arkezbuio Qmfiq-6-Lmsbcepku Gamma Globulins PEP Interpretation Urine Creatinine Urine Total Protein Crossmatch 10/09/19 10/10/19 10/10/19 17:23 05:30 05:30 WBC 14.6 H RBC Hgb 11.1 L Hct 33.5 L RDW Plt Count 527 H Seg Neuts % (Manual) Lymphocytes % (Manual) Seg Neutrophils # Man Lymphocytes # (Manual) Monocytes # (Manual) POC ABG pH ABG pH POC ABG pCO2 POC ABG pO2 ABG pO2 ABG HCO3 ABG Base Excess ABG Hemoglobin Oxyhemoglobin Sodium 130 L D Potassium 5.1 H Chloride 90.0 L 91.0 L Carbon Dioxide 20 L 20 L BUN 27 H 35 H Creatinine 1.9 H 2.0 H Glucose 104 H POC Glucose Calcium Phosphorus Magnesium Direct Bilirubin AST C-Reactive Protein Serum Total Protein Total Protein Albumin Prealbumin Qhmwz-1-Dbnysrztc Ggend-3-Vvframgrs Gamma Globulins PEP Interpretation Urine Creatinine Urine Total Protein Crossmatch 10/10/19 10/10/19 10/11/19 08:33 08:44 05:41 WBC 13.2 H RBC Hgb 11.3 L Hct 33.8 L RDW 15.3 H Plt Count 543 H Seg Neuts % (Manual) Lymphocytes % (Manual) Seg Neutrophils # Man Lymphocytes # (Manual) Monocytes # (Manual) POC ABG pH ABG pH POC ABG pCO2 POC ABG pO2 ABG pO2 ABG HCO3 ABG Base Excess ABG Hemoglobin Oxyhemoglobin Sodium Potassium Chloride Carbon Dioxide BUN Creatinine Glucose 113 H POC Glucose 117 H Calcium Phosphorus Magnesium Direct Bilirubin AST C-Reactive Protein Serum Total Protein Total Protein Albumin Prealbumin Mmkhf-9-Kdzgnznyf Zdraf-2-Qqbgiarrg Gamma Globulins PEP Interpretation Urine Creatinine Urine Total Protein Crossmatch 10/11/19 10/11/19 10/11/19 05:41 06:23 06:23 WBC RBC Hgb Hct RDW Plt Count Seg Neuts % (Manual) Lymphocytes % (Manual) Seg Neutrophils # Man Lymphocytes # (Manual) Monocytes # (Manual) POC ABG pH ABG pH POC ABG pCO2 POC ABG pO2 ABG pO2 ABG HCO3 ABG Base Excess ABG Hemoglobin Oxyhemoglobin Sodium 134 L Potassium Chloride 96.3 L Carbon Dioxide BUN 37 H Creatinine Glucose 58 L POC Glucose Calcium Phosphorus 4.90 H Magnesium Direct Bilirubin AST C-Reactive Protein Serum Total Protein Total Protein Albumin Prealbumin Wwsju-4-Lchhlslnv Ussif-1-Lxiauaiwo Gamma Globulins PEP Interpretation Urine Creatinine 118.2 H 116.8 H Urine Total Protein 105 H 104 H Crossmatch 10/11/19 10/12/19 10/12/19 09:00 06:09 06:09 WBC 13.8 H RBC 3.39 L Hgb 10.2 L Hct 30.9 L RDW 15.5 H Plt Count 459 H Seg Neuts % (Manual) Lymphocytes % (Manual) Seg Neutrophils # Man Lymphocytes # (Manual) Monocytes # (Manual) POC ABG pH ABG pH POC ABG pCO2 POC ABG pO2 ABG pO2 ABG HCO3 ABG Base Excess ABG Hemoglobin Oxyhemoglobin Sodium 131 L Potassium Chloride 96.2 L Carbon Dioxide 21 L BUN 43 H Creatinine Glucose 72 L POC Glucose Calcium Phosphorus Magnesium Direct Bilirubin AST C-Reactive Protein Serum Total Protein 5.2 L Total Protein Albumin 1.9 L Prealbumin Mrsyk-0-Okcjkrsax 0.9 H Rczwy-5-Bhvgyizgh 1.0 H Gamma Globulins 0.7 L PEP Interpretation see below H Urine Creatinine Urine Total Protein Crossmatch 10/12/19 10/12/19 10/12/19 08:20 09:30 09:30 WBC RBC Hgb Hct RDW Plt Count Seg Neuts % (Manual) Lymphocytes % (Manual) Seg Neutrophils # Man Lymphocytes # (Manual) Monocytes # (Manual) POC ABG pH ABG pH POC ABG pCO2 POC ABG pO2 63 L ABG pO2 ABG HCO3 ABG Base Excess ABG Hemoglobin Oxyhemoglobin Sodium Potassium Chloride Carbon Dioxide BUN Creatinine Glucose POC Glucose Calcium Phosphorus Magnesium 2.50 H Direct Bilirubin 0.3 H AST C-Reactive Protein Serum Total Protein Total Protein 5.1 L Albumin 2.2 L Prealbumin Wynrc-1-Glyjkitvi Bkote-6-Zxjonqmrk Gamma Globulins PEP Interpretation Urine Creatinine Urine Total Protein Crossmatch 10/13/19 10/13/19 10/13/19 04:20 04:20 13:20 WBC 15.7 H RBC 3.64 L Hgb 10.9 L Hct 33.1 L RDW 15.8 H Plt Count 488 H Seg Neuts % (Manual) Lymphocytes % (Manual) Seg Neutrophils # Man Lymphocytes # (Manual) Monocytes # (Manual) POC ABG pH ABG pH POC ABG pCO2 POC ABG pO2 ABG pO2 ABG HCO3 ABG Base Excess ABG Hemoglobin Oxyhemoglobin Sodium Potassium Chloride Carbon Dioxide BUN 28 H Creatinine Glucose POC Glucose Calcium Phosphorus Magnesium Direct Bilirubin AST C-Reactive Protein Serum Total Protein Total Protein Albumin Prealbumin Xfmno-0-Oiwclbcgy Wyepr-8-Bavxzctll Gamma Globulins PEP Interpretation Urine Creatinine Urine Total Protein Crossmatch See Detail 10/13/19 10/13/19 10/14/19 18:24 20:05 04:47 WBC 24.2 H RBC Hgb 10.9 L Hct 34.2 L RDW 17.0 H Plt Count 442 H Seg Neuts % (Manual) Lymphocytes % (Manual) Seg Neutrophils # Man Lymphocytes # (Manual) Monocytes # (Manual) POC ABG pH ABG pH 7.180 L* 7.278 L POC ABG pCO2 POC ABG pO2 ABG pO2 130.7 H ABG HCO3 ABG Base Excess -6.5 L -6.5 L ABG Hemoglobin 12.2 L 12.3 L Oxyhemoglobin 92.9 L Sodium Potassium Chloride Carbon Dioxide BUN Creatinine Glucose POC Glucose Calcium Phosphorus Magnesium Direct Bilirubin AST C-Reactive Protein Serum Total Protein Total Protein Albumin Prealbumin Xodgw-7-Rjcqxemkl Rnnue-8-Xrwtaaylj Gamma Globulins PEP Interpretation Urine Creatinine Urine Total Protein Crossmatch 10/14/19 10/14/19 10/14/19 04:47 05:40 10:14 WBC RBC Hgb Hct RDW Plt Count Seg Neuts % (Manual) Lymphocytes % (Manual) Seg Neutrophils # Man Lymphocytes # (Manual) Monocytes # (Manual) POC ABG pH ABG pH POC ABG pCO2 POC ABG pO2 ABG pO2 76.3 L ABG HCO3 19.1 L ABG Base Excess -5.8 L ABG Hemoglobin 10.9 L Oxyhemoglobin 93.4 L Sodium Potassium 5.1 H D Chloride 109.2 H Carbon Dioxide 17 L BUN 38 H Creatinine 1.8 H D Glucose 104 H POC Glucose Calcium 7.4 L Phosphorus 5.60 H Magnesium Direct Bilirubin AST C-Reactive Protein Serum Total Protein Total Protein Albumin Prealbumin Gkdle-6-Gakhqoeci Xtjei-7-Mzzkrizvf Gamma Globulins PEP Interpretation Urine Creatinine Urine Total Protein Crossmatch 10/14/19 10/15/19 10/15/19 23:46 04:32 04:32 WBC 15.5 H RBC 2.89 L Hgb 8.8 L Hct 27.3 L D RDW 16.6 H Plt Count Seg Neuts % (Manual) Lymphocytes % (Manual) Seg Neutrophils # Man Lymphocytes # (Manual) Monocytes # (Manual) POC ABG pH ABG pH POC ABG pCO2 POC ABG pO2 ABG pO2 ABG HCO3 ABG Base Excess ABG Hemoglobin Oxyhemoglobin Sodium 147 H Potassium Chloride 114.0 H Carbon Dioxide 19 L BUN 42 H Creatinine Glucose 112 H POC Glucose 113 H Calcium 7.3 L Phosphorus Magnesium Direct Bilirubin AST 72 H C-Reactive Protein 30.60 H Serum Total Protein Total Protein 4.0 L D Albumin 1.7 L Prealbumin 0.030 L Jxaqq-6-Qihpdvqlu Nfpzm-5-Bualmxjux Gamma Globulins PEP Interpretation Urine Creatinine Urine Total Protein Crossmatch 10/15/19 10/15/19 10/15/19 05:30 12:08 17:23 WBC RBC Hgb Hct RDW Plt Count Seg Neuts % (Manual) Lymphocytes % (Manual) Seg Neutrophils # Man Lymphocytes # (Manual) Monocytes # (Manual) POC ABG pH ABG pH 7.296 L POC ABG pCO2 POC ABG pO2 ABG pO2 114.7 H ABG HCO3 ABG Base Excess -3.7 L ABG Hemoglobin 8.9 L Oxyhemoglobin Sodium Potassium Chloride Carbon Dioxide BUN Creatinine Glucose POC Glucose 106 H 106 H Calcium Phosphorus Magnesium Direct Bilirubin AST C-Reactive Protein Serum Total Protein Total Protein Albumin Prealbumin Drqgx-5-Hstpjlyyz Nugca-4-Hnepwebfq Gamma Globulins PEP Interpretation Urine Creatinine Urine Total Protein Crossmatch 10/16/19 10/16/19 10/16/19 00:07 04:44 05:24 WBC RBC Hgb Hct RDW Plt Count Seg Neuts % (Manual) Lymphocytes % (Manual) Seg Neutrophils # Man Lymphocytes # (Manual) Monocytes # (Manual) POC ABG pH ABG pH POC ABG pCO2 POC ABG pO2 ABG pO2 ABG HCO3 ABG Base Excess ABG Hemoglobin Oxyhemoglobin Sodium 150 H Potassium Chloride 115.8 H Carbon Dioxide BUN 35 H Creatinine Glucose 129 H POC Glucose 119 H 129 H Calcium 7.3 L Phosphorus 1.80 L D Magnesium Direct Bilirubin AST C-Reactive Protein Serum Total Protein Total Protein Albumin Prealbumin Lgowr-2-Sdojxjdxb Slokf-5-Noogqsmfk Gamma Globulins PEP Interpretation Urine Creatinine Urine Total Protein Crossmatch 10/16/19 10/16/19 10/16/19 06:53 09:20 11:58 WBC 14.6 H RBC 2.70 L Hgb 8.1 L Hct 25.2 L RDW 16.7 H Plt Count Seg Neuts % (Manual) 79.0 H Lymphocytes % (Manual) 4.0 L Seg Neutrophils # Man 11.5 H Lymphocytes # (Manual) 0.6 L Monocytes # (Manual) POC ABG pH ABG pH POC ABG pCO2 47.0 H POC ABG pO2 ABG pO2 ABG HCO3 ABG Base Excess ABG Hemoglobin Oxyhemoglobin Sodium Potassium Chloride Carbon Dioxide BUN Creatinine Glucose POC Glucose Calcium Phosphorus Magnesium Direct Bilirubin AST C-Reactive Protein Serum Total Protein Total Protein Albumin Prealbumin Htzyw-1-Eycxgclpt Tlomi-7-Bytnjfmey Gamma Globulins PEP Interpretation Urine Creatinine Urine Total Protein Crossmatch See Detail 10/16/19 10/16/19 10/16/19 15:23 17:50 23:58 WBC RBC Hgb Hct RDW Plt Count Seg Neuts % (Manual) Lymphocytes % (Manual) Seg Neutrophils # Man Lymphocytes # (Manual) Monocytes # (Manual) POC ABG pH ABG pH POC ABG pCO2 POC ABG pO2 ABG pO2 ABG HCO3 ABG Base Excess ABG Hemoglobin Oxyhemoglobin Sodium Potassium Chloride Carbon Dioxide BUN Creatinine Glucose POC Glucose 221 H 201 H 179 H Calcium Phosphorus Magnesium Direct Bilirubin AST C-Reactive Protein Serum Total Protein Total Protein Albumin Prealbumin Gtlis-0-Rtlsnngcw Wvcdp-8-Iwltldkwr Gamma Globulins PEP Interpretation Urine Creatinine Urine Total Protein Crossmatch 10/17/19 10/17/19 10/17/19 04:08 04:08 05:41 WBC 22.3 H RBC 3.35 L Hgb 10.0 L Hct 31.2 L D RDW 16.1 H Plt Count Seg Neuts % (Manual) Lymphocytes % (Manual) Seg Neutrophils # Man Lymphocytes # (Manual) Monocytes # (Manual) POC ABG pH 7.310 L ABG pH POC ABG pCO2 52.8 H POC ABG pO2 70 L ABG pO2 ABG HCO3 ABG Base Excess ABG Hemoglobin Oxyhemoglobin Sodium 147 H Potassium Chloride 114.9 H Carbon Dioxide BUN 36 H Creatinine Glucose 165 H POC Glucose Calcium 6.9 L Phosphorus 2.20 L D Magnesium Direct Bilirubin AST C-Reactive Protein Serum Total Protein Total Protein Albumin Prealbumin Stvxk-0-Dvqcnrmqy Tlyei-2-Irxdhaiwy Gamma Globulins PEP Interpretation Urine Creatinine Urine Total Protein Crossmatch 10/17/19 10/17/19 10/17/19 05:42 11:33 18:17 WBC RBC Hgb Hct RDW Plt Count Seg Neuts % (Manual) Lymphocytes % (Manual) Seg Neutrophils # Man Lymphocytes # (Manual) Monocytes # (Manual) POC ABG pH ABG pH POC ABG pCO2 POC ABG pO2 ABG pO2 ABG HCO3 ABG Base Excess ABG Hemoglobin Oxyhemoglobin Sodium Potassium Chloride Carbon Dioxide BUN Creatinine Glucose POC Glucose 149 H 154 H 163 H Calcium Phosphorus Magnesium Direct Bilirubin AST C-Reactive Protein Serum Total Protein Total Protein Albumin Prealbumin Fqlfv-4-Rlflkqdkr Hmiui-9-Erztbrqhe Gamma Globulins PEP Interpretation Urine Creatinine Urine Total Protein Crossmatch 10/17/19 10/18/19 10/18/19 23:34 03:29 04:50 WBC RBC Hgb Hct RDW Plt Count Seg Neuts % (Manual) Lymphocytes % (Manual) Seg Neutrophils # Man Lymphocytes # (Manual) Monocytes # (Manual) POC ABG pH ABG pH POC ABG pCO2 POC ABG pO2 ABG pO2 78.8 L ABG HCO3 ABG Base Excess ABG Hemoglobin 8.8 L Oxyhemoglobin Sodium Potassium Chloride 111.8 H Carbon Dioxide BUN 27 H Creatinine 0.6 L Glucose 140 H POC Glucose 135 H Calcium 7.1 L Phosphorus 1.80 L Magnesium Direct Bilirubin AST C-Reactive Protein Serum Total Protein Total Protein Albumin Prealbumin Ibkjq-7-Fyucgwdfn Evpdl-4-Rmmdyqvok Gamma Globulins PEP Interpretation Urine Creatinine Urine Total Protein Crossmatch 10/18/19 05:45 WBC RBC Hgb Hct RDW Plt Count Seg Neuts % (Manual) Lymphocytes % (Manual) Seg Neutrophils # Man Lymphocytes # (Manual) Monocytes # (Manual) POC ABG pH ABG pH POC ABG pCO2 POC ABG pO2 ABG pO2 ABG HCO3 ABG Base Excess ABG Hemoglobin Oxyhemoglobin Sodium Potassium Chloride Carbon Dioxide BUN Creatinine Glucose POC Glucose 145 H Calcium Phosphorus Magnesium Direct Bilirubin AST C-Reactive Protein Serum Total Protein Total Protein Albumin Prealbumin Bjmip-6-Hsibqrlca Tlfrs-7-Akxslmiqd Gamma Globulins PEP Interpretation Urine Creatinine Urine Total Protein Crossmatch
[2019-10-18] MEDS ORDERED: TOTAL PARENTERAL NUTRITION 2,400 ML IV SCH (20:00)
[2019-10-18] MEDS: AMIODARONE 900 MG in DEXTROSE 5% IN WATER 482 ML IV SCH (20:28)
[2019-10-19] MEDS: PIPERACIL/TAZOBACTA 4.5/NS 100 4.5 GM/100 ML VIAL IV SCH ×5 (00:37→23:56)
[2019-10-19] MEDS: INSULIN LISPRO 100 UNIT/ML SUB-Q SCH ×4 (00:37→18:02)
[2019-10-19] MEDS: IPRATROPIUM/ALBUTEROL SULFATE 3 ML AMPUL.NEB IH SCH ×4 (01:20→20:36)
[2019-10-19] MEDS: METOPROLOL TARTRATE 5 MG/5 ML INJ IV SCH ×4 (02:50→16:17)
[2019-10-19] MEDS: fentaNYL 100 MCG/2 ML INJ IV PRN ×3 (03:00→09:27)
[2019-10-19 05:14] LABS: BUN/Creatinine Ratio 44; Blood Urea Nitrogen 22 mg/dL (9-20); Calcium 7.4 mg/dL (8.4-10.2); Hemolysis Index 2
[2019-10-19 05:46] LABS: ABG Base Excess 1.1 mmol/L (-2.0-3.0); ABG HCO3 25.1 mmol/L (20.0-26.0); ABG Methemoglobin 0.5 % (0.0-1.5); ABG PCO2 36.4 mm Hg; ABG PH 7.456 pH Units (7.350-7.450); ABG PO2 78.8 mm Hg (80.0-90.0)
[2019-10-19] MEDS: SODIUM CHLORIDE 0.45% 1000 ML 1,000 ML IV SCH (06:09)
[2019-10-19] MEDS: BUDESONIDE 0.5 MG/2 ML NEBU IH SCH ×2 (08:09→20:36)
[2019-10-19] MEDS: ARFORMOTEROL 15 MCG/2 ML NEBU IH SCH ×2 (08:09→20:36)
--- NOTE | 2019-10-19 08:49 | Progress Note ---
Assessment and Plan - Patient Problems (1) Dehiscence of closure of fascia, superficial or muscular Current Visit: No Status: Acute Qualifiers: Encounter type: initial encounter Qualified Code(s): T81.32XA - Disruption of internal operation (surgical) wound, not elsewhere classified, initial encounter Plan to address problem: Pt stable. s/p ex lap with closure of abdominal wall and wound vac placement (10/05) - POD#13; s/p Re-exploration, washout, transection of colon, Abthera placement - 10/13 - POD#5; s/p abd washout, partial omentectomy, partial colectomy with colostomy - 10/16 POD#3. Rec: 1) Neuro - sedated. Family states that he has not had a drink in 3 weeks. Perhaps withdrawal may not have been involved. Ativan currently held. Staff reports he is opening eyes to name now 2) CV - BP much improved. Back in Sinus rhythm! 3) Resp - Vent support. Good ABG. 4) GI - Ostomy looks good. SE Drain output has concerning appearance for possibly small leak (drain volume is low) from the colon stump site. Now, the wound vac drainage is looking a little concerning as well. Will check today. Plan for take back to surgery today at 2pm. Based on drainage appearance, may only do feeding tube and washout. OGT looking better. Appearing more gastric now. Patient had a recent episode of an upper GI bleed secondary to an NG tube. We will try to remove OG tube as soon as possible. 5) - BUN/Cr look good 6) ID - Abx per ID. Enterococcus on cultures. Fevers resolved. 7) Nutrition - TPN 8) DVT prophylaxis - SCDs. Lovenox to be restarted tonight. 9) Family -no family at bedside. Please call with questions. Subjective Date of service: 10/19/19 Patient Reports: Positive: other (no events o/n.) Objective Vital Signs - 12hr 10/18/19 10/18/19 10/18/19 21:00 21:30 22:00 Temperature Pulse Rate 85 84 82 Pulse Rate [ Anterior Left Throughout] Pulse Rate [ Anterior Right Throughout] Pulse Rate [ From Monitor] Respiratory 32 H 32 H 29 H Rate Respiratory Rate [Anterior Left Throughout ] Respiratory Rate [Anterior Right Throughout] Blood Pressure 130/66 142/67 138/69 O2 Sat by Pulse 100 100 100 Oximetry 10/18/19 10/18/19 10/18/19 22:30 22:44 22:52 Temperature Pulse Rate 84 85 87 Pulse Rate [ Anterior Left Throughout] Pulse Rate [ Anterior Right Throughout] Pulse Rate [ From Monitor] Respiratory 31 H 26 H Rate Respiratory Rate [Anterior Left Throughout ] Respiratory Rate [Anterior Right Throughout] Blood Pressure 132/65 138/66 132/65 O2 Sat by Pulse 100 100 Oximetry 10/18/19 10/18/19 10/18/19 23:00 23:03 23:30 Temperature 99 F Pulse Rate 86 84 Pulse Rate [ Anterior Left Throughout] Pulse Rate [ Anterior Right Throughout] Pulse Rate [ From Monitor] Respiratory 34 H 33 H Rate Respiratory Rate [Anterior Left Throughout ] Respiratory Rate [Anterior Right Throughout] Blood Pressure 132/65 140/72 O2 Sat by Pulse 100 100 Oximetry 10/19/19 10/19/19 10/19/19 00:00 00:30 00:47 Temperature Pulse Rate 85 85 87 Pulse Rate [ Anterior Left Throughout] Pulse Rate [ Anterior Right Throughout] Pulse Rate [ 84 From Monitor] Respiratory 28 H 29 H Rate Respiratory Rate [Anterior Left Throughout ] Respiratory Rate [Anterior Right Throughout] Blood Pressure 138/73 123/75 151/71 O2 Sat by Pulse 100 100 100 Oximetry 10/19/19 10/19/19 10/19/19 01:00 01:21 01:30 Temperature Pulse Rate 88 86 Pulse Rate [ 91 H Anterior Left Throughout] Pulse Rate [ 89 Anterior Right Throughout] Pulse Rate [ From Monitor] Respiratory 36 H 34 H Rate Respiratory 26 H Rate [Anterior Left Throughout ] Respiratory 27 H Rate [Anterior Right Throughout] Blood Pressure 151/71 150/65 O2 Sat by Pulse 99 100 Oximetry 10/19/19 10/19/19 10/19/19 02:00 02:30 02:50 Temperature Pulse Rate 88 91 H Pulse Rate [ Anterior Left Throughout] Pulse Rate [ Anterior Right Throughout] Pulse Rate [ From Monitor] Respiratory 36 H Rate Respiratory Rate [Anterior Left Throughout ] Respiratory Rate [Anterior Right Throughout] Blood Pressure 140/67 140/67 148/72 O2 Sat by Pulse 100 99 Oximetry 10/19/19 10/19/19 10/19/19 03:00 03:11 03:30 Temperature 99.1 F Pulse Rate 84 91 H Pulse Rate [ Anterior Left Throughout] Pulse Rate [ Anterior Right Throughout] Pulse Rate [ From Monitor] Respiratory 31 H 32 H Rate Respiratory Rate [Anterior Left Throughout ] Respiratory Rate [Anterior Right Throughout] Blood Pressure 148/72 139/76 O2 Sat by Pulse 99 96 Oximetry 10/19/19 10/19/19 10/19/19 04:00 04:30 04:41 Temperature Pulse Rate 93 H 90 89 Pulse Rate [ Anterior Left Throughout] Pulse Rate [ Anterior Right Throughout] Pulse Rate [ 89 From Monitor] Respiratory 28 H 33 H Rate Respiratory Rate [Anterior Left Throughout ] Respiratory Rate [Anterior Right Throughout] Blood Pressure 126/84 141/74 139/70 O2 Sat by Pulse 96 97 98 Oximetry 10/19/19 10/19/19 10/19/19 05:00 05:30 06:00 Temperature Pulse Rate 87 88 86 Pulse Rate [ Anterior Left Throughout] Pulse Rate [ Anterior Right Throughout] Pulse Rate [ From Monitor] Respiratory 34 H 26 H 29 H Rate Respiratory Rate [Anterior Left Throughout ] Respiratory Rate [Anterior Right Throughout] Blood Pressure 139/70 154/75 136/70 O2 Sat by Pulse 98 99 99 Oximetry 10/19/19 10/19/19 10/19/19 06:10 08:00 08:05 Temperature 99.3 F Pulse Rate 88 84 Pulse Rate [ Anterior Left Throughout] Pulse Rate [ Anterior Right Throughout] Pulse Rate [ From Monitor] Respiratory Rate Respiratory Rate [Anterior Left Throughout ] Respiratory Rate [Anterior Right Throughout] Blood Pressure 151/74 150/68 O2 Sat by Pulse 100 Oximetry 10/19/19 08:09 Temperature Pulse Rate Pulse Rate [ 80 Anterior Left Throughout] Pulse Rate [ Anterior Right Throughout] Pulse Rate [ From Monitor] Respiratory Rate Respiratory 25 H Rate [Anterior Left Throughout ] Respiratory Rate [Anterior Right Throughout] Blood Pressure O2 Sat by Pulse Oximetry - General physical appearance no distress, no pain - Respiratory normal expansion, normal respiratory effort - Abdomen soft, distended (mild), other (Wound vac drainage looking thicker. ES drain looks stool like) - Labs 10/17/19 04:08 10/19/19 04:21 Diabetes panel 10/19/19 Range/Units 04:21 Sodium 144 (137-145) mmol/L Potassium 3.8 (3.6-5.0) mmol/L Chloride 108.4 H (98-107) mmol/L Carbon Dioxide 23 (22-30) mmol/L BUN 22 H (9-20) mg/dL Creatinine 0.5 L (0.8-1.5) mg/dL Glucose 123 H (75-100) mg/dL Calcium 7.4 L (8.4-10.2) mg/dL Calcium panel 10/19/19 Range/Units 04:21 Calcium 7.4 L (8.4-10.2) mg/dL Phosphorus 1.80 L (2.5-4.5) mg/dL Pituitary panel 10/19/19 Range/Units 04:21 Sodium 144 (137-145) mmol/L Potassium 3.8 (3.6-5.0) mmol/L Chloride 108.4 H (98-107) mmol/L Carbon Dioxide 23 (22-30) mmol/L BUN 22 H (9-20) mg/dL Creatinine 0.5 L (0.8-1.5) mg/dL Glucose 123 H (75-100) mg/dL Calcium 7.4 L (8.4-10.2) mg/dL Adrenal panel 10/19/19 Range/Units 04:21 Sodium 144 (137-145) mmol/L Potassium 3.8 (3.6-5.0) mmol/L Chloride 108.4 H (98-107) mmol/L Carbon Dioxide 23 (22-30) mmol/L BUN 22 H (9-20) mg/dL Creatinine 0.5 L (0.8-1.5) mg/dL Glucose 123 H (75-100) mg/dL Calcium 7.4 L (8.4-10.2) mg/dL
[2019-10-19] MEDS: PANTOPRAZOLE 40 MG INJ IV SCH (09:28)
[2019-10-19] MEDS: DIGOXIN 0.5 MG/2 ML INJ IV SCH (09:28)
[2019-10-19] MEDS: FLUCONAZOLE 400 MG 200 ML IV SCH (09:28)
--- NOTE | 2019-10-19 11:32 | Progress Note ---
Assessment and Plan Atrial fibrillation/flutter, spontaneously reverted to sinus rhythm treated with adenosine x1 on 10/15 on IV amiodarone, IV digoxin and IV metoprolol Sepsis Severe abdominal pain s/p exploratory laparotomy, abdominal washout, closure of abdominal fascia with wound vac placement on 10/05 s/p abdominal washout with partial colectomy and left colostomy on 10/16 Recent colon resection for bowel perforation following a colonoscopy Atypical chest pain chest CT reports left lower lobe pleural effusion with suspected left upper lobe pneumonia. troponins are normal Hx of MA/CAD [facility] 12/2017: PCI of the circumflex and second vessel POBA of the distal LAD occlusion. Left ventricle fraction 45-50%. Tobacco abuse COPD Hypertension Hyperlipidemia Recommend: Continue intravenous metoprolol, intravenous digitalis and intravenous amiodarone for atrial fibrillation suppression while patient remains nothing by mouth. Subjective Date of service: 10/19/19 Principal diagnosis: acute renal failure Interval history: Patient remains intubated on the ventilator. Stable sinus rhythm on telemetry. Objective Vital Signs Temp Pulse Pulse Pulse Pulse Resp Resp 10/19/19 08:31 94 H 23 10/19/19 08:09 80 25 H 10/19/19 08:05 84 10/19/19 08:01 82 19 10/19/19 08:00 99.3 F 10/19/19 07:31 81 27 H 10/19/19 07:00 81 25 H 10/19/19 06:30 78 28 H 10/19/19 06:10 88 10/19/19 06:00 86 29 H 10/19/19 05:30 88 26 H 10/19/19 05:00 87 34 H 10/19/19 04:41 89 10/19/19 04:30 90 33 H 10/19/19 04:00 93 H 89 28 H 10/19/19 03:30 91 H 32 H 10/19/19 03:11 99.1 F 10/19/19 03:00 84 31 H 10/19/19 02:50 91 H 10/19/19 02:30 10/19/19 02:00 88 36 H 10/19/19 01:30 86 34 H 10/19/19 01:21 91 H 89 26 H 10/19/19 01:00 88 36 H 10/19/19 00:47 87 10/19/19 00:30 85 29 H 10/19/19 00:00 85 84 28 H 10/18/19 23:30 84 33 H 10/18/19 23:03 99 F 10/18/19 23:00 86 34 H 10/18/19 22:52 87 26 H 10/18/19 22:44 85 10/18/19 22:30 84 31 H 10/18/19 22:00 82 29 H 10/18/19 21:30 84 32 H 10/18/19 21:00 85 32 H 10/18/19 20:30 84 30 H 10/18/19 20:05 84 81 28 H 10/18/19 20:00 98.9 F 84 85 30 H 10/18/19 19:53 84 10/18/19 19:30 85 36 H 10/18/19 19:00 80 32 H 10/18/19 18:30 85 30 H 10/18/19 18:26 84 10/18/19 18:00 87 37 H 10/18/19 17:30 85 35 H 10/18/19 17:16 86 34 H 10/18/19 17:00 86 29 H 10/18/19 16:45 85 30 H 10/18/19 16:30 86 34 H 10/18/19 16:15 84 32 H 10/18/19 16:00 98.7 F 86 82 30 H 10/18/19 15:52 91 H 31 H 10/18/19 15:45 86 34 H 10/18/19 15:30 83 28 H 10/18/19 15:15 82 36 H 10/18/19 15:00 82 32 H 10/18/19 14:45 86 30 H 10/18/19 14:36 91 H 10/18/19 14:30 90 34 H 10/18/19 14:15 88 29 H 10/18/19 14:00 91 H 33 H 10/18/19 13:48 90 91 H 28 H 10/18/19 13:45 91 H 34 H 10/18/19 13:30 90 32 H 10/18/19 13:15 91 H 35 H 10/18/19 13:00 90 31 H 10/18/19 12:45 91 H 33 H 10/18/19 12:30 90 35 H 10/18/19 12:15 89 33 H 10/18/19 12:00 98.3 F 88 92 H 17 10/18/19 11:45 Resp BP Pulse Ox 10/19/19 08:31 160/81 97 10/19/19 08:09 10/19/19 08:05 150/68 100 10/19/19 08:01 150/68 99 10/19/19 08:00 10/19/19 07:31 142/66 100 10/19/19 07:00 150/64 100 10/19/19 06:30 151/74 99 10/19/19 06:10 151/74 10/19/19 06:00 136/70 99 10/19/19 05:30 154/75 99 10/19/19 05:00 139/70 98 10/19/19 04:41 139/70 98 10/19/19 04:30 141/74 97 10/19/19 04:00 126/84 96 10/19/19 03:30 139/76 96 10/19/19 03:11 10/19/19 03:00 148/72 99 10/19/19 02:50 148/72 10/19/19 02:30 140/67 99 10/19/19 02:00 140/67 100 10/19/19 01:30 150/65 100 10/19/19 01:21 27 H 10/19/19 01:00 151/71 99 10/19/19 00:47 151/71 100 10/19/19 00:30 123/75 100 10/19/19 00:00 138/73 100 10/18/19 23:30 140/72 100 10/18/19 23:03 10/18/19 23:00 132/65 100 10/18/19 22:52 132/65 100 10/18/19 22:44 138/66 10/18/19 22:30 132/65 100 10/18/19 22:00 138/69 100 10/18/19 21:30 142/67 100 10/18/19 21:00 130/66 100 10/18/19 20:30 141/66 100 10/18/19 20:05 27 H 10/18/19 20:00 128/71 100 10/18/19 19:53 128/71 100 10/18/19 19:30 131/67 100 10/18/19 19:00 138/66 100 10/18/19 18:30 143/68 100 10/18/19 18:26 143/68 10/18/19 18:00 136/69 99 10/18/19 17:30 141/61 99 10/18/19 17:16 141/61 99 10/18/19 17:00 134/62 99 10/18/19 16:45 134/62 98 10/18/19 16:30 137/68 99 10/18/19 16:15 125/61 98 10/18/19 16:00 136/66 99 10/18/19 15:52 128/64 98 10/18/19 15:45 136/66 99 10/18/19 15:30 137/64 100 10/18/19 15:15 137/64 100 10/18/19 15:00 143/65 100 10/18/19 14:45 143/65 100 10/18/19 14:36 128/64 10/18/19 14:30 131/58 100 10/18/19 14:15 131/58 99 10/18/19 14:00 125/69 99 10/18/19 13:48 27 H 10/18/19 13:45 125/69 99 10/18/19 13:30 130/67 98 10/18/19 13:15 130/67 99 10/18/19 13:00 128/64 98 10/18/19 12:45 128/64 98 10/18/19 12:30 134/64 99 10/18/19 12:15 134/64 99 10/18/19 12:00 132/59 98 10/18/19 11:45 132/59 99 - Physical Examination General: Other (intubated, on the vent) Cardiac: Positive: Reg Rate and Rhythm Abdomen: Positive: Other (abdominal wound vac is in place) - Labs and Meds Comprehensive Metabolic Panel 10/19/19 Range/Units 04:21 Sodium 144 (137-145) mmol/L Potassium 3.8 (3.6-5.0) mmol/L Chloride 108.4 H (98-107) mmol/L Carbon Dioxide 23 (22-30) mmol/L BUN 22 H (9-20) mg/dL Creatinine 0.5 L (0.8-1.5) mg/dL Glucose 123 H (75-100) mg/dL Calcium 7.4 L (8.4-10.2) mg/dL
--- NOTE | 2019-10-19 12:04 | Progress Note ---
Assessment and Plan 54 y/o male with anastomic leak 10/19: TO OR today. Will restart Fentanyl drip as we know mental state is good. Post op main focuses will be pain control and extubation. Will continue to follow. 1. CV-tachycardia but stable BP. Was ok on Amio and Dilt but when BP started dropping, we stopped the dilt. Now rate back up and not controlled on 5. Spoke to nursing about increasing to 10. Continue fluid boluses for BP as needed. Trying not to start pressors if possible. 2. Pulm-stable on Vent. FiO2 down to 45% prior to go to OR. CXR shows right lower lobe airspace disease (10/15). Light green substance in ET tube has stopped. Continue current vent management. Wean once all surgeries are done. 3. GI-Going back to OR again on Tuesday for Washout. 4. Renal- Renal function and output have improved. Will continue to monitor. Had a large volume out that we are actively replacing. This may have added to hypotension this am. 5. Neuro- on rounds, per nursing, patient did not wake up during sedation vacation. Stopping all sedation now. If not able to control rate with drugs, could be related to pain. Spoke to nursing to use PRN pushes to see if this helps HR as well. If patient's mental state does not improve post all surgeries, may need CT head, EEG and neurology evaluation. 6. ID-continues to spike temps. ID following. Defer to them for repeat cul tures. Blood has been negative. 7. Electrolytes-Reviewed renal note from yesterday. Overall prognosis is guarded. Will continue to follow. CCT 31 minutes. Subjective Date of service: 10/19/19 Principal diagnosis: acute renal failure Interval history: Has been off sedation the last 48 and now is awake. Following commands. Complains of pain. Will nod head appropriately. Objective Vital Signs - 12hr 10/19/19 10/19/19 10/19/19 00:30 00:47 01:00 Temperature Pulse Rate 85 87 88 Pulse Rate [ Anterior Left Throughout] Pulse Rate [ Anterior Right Throughout] Pulse Rate [ From Monitor] Respiratory 29 H 36 H Rate Respiratory Rate [Anterior Left Throughout ] Respiratory Rate [Anterior Right Throughout] Blood Pressure 123/75 151/71 151/71 O2 Sat by Pulse 100 100 99 Oximetry 12/05/0210/19/19 10/19/19 01:21 01:30 02:00 Temperature Pulse Rate 86 88 Pulse Rate [ 91 H Anterior Left Throughout] Pulse Rate [ 89 Anterior Right Throughout] Pulse Rate [ From Monitor] Respiratory 34 H 36 H Rate Respiratory 26 H Rate [Anterior Left Throughout ] Respiratory 27 H Rate [Anterior Right Throughout] Blood Pressure 150/65 140/67 O2 Sat by Pulse 100 100 Oximetry 10/19/19 10/19/19 10/19/19 02:30 02:50 03:00 Temperature Pulse Rate 91 H 84 Pulse Rate [ Anterior Left Throughout] Pulse Rate [ Anterior Right Throughout] Pulse Rate [ From Monitor] Respiratory 31 H Rate Respiratory Rate [Anterior Left Throughout ] Respiratory Rate [Anterior Right Throughout] Blood Pressure 140/67 148/72 148/72 O2 Sat by Pulse 99 99 Oximetry 10/19/19 10/19/19 10/19/19 03:11 03:30 04:00 Temperature 99.1 F Pulse Rate 91 H 93 H Pulse Rate [ Anterior Left Throughout] Pulse Rate [ Anterior Right Throughout] Pulse Rate [ 89 From Monitor] Respiratory 32 H 28 H Rate Respiratory Rate [Anterior Left Throughout ] Respiratory Rate [Anterior Right Throughout] Blood Pressure 139/76 126/84 O2 Sat by Pulse 96 96 Oximetry 10/19/19 10/19/19 10/19/19 04:30 04:41 05:00 Temperature Pulse Rate 90 89 87 Pulse Rate [ Anterior Left Throughout] Pulse Rate [ Anterior Right Throughout] Pulse Rate [ From Monitor] Respiratory 33 H 34 H Rate Respiratory Rate [Anterior Left Throughout ] Respiratory Rate [Anterior Right Throughout] Blood Pressure 141/74 139/70 139/70 O2 Sat by Pulse 97 98 98 Oximetry 10/19/19 10/19/19 10/19/19 05:30 06:00 06:10 Temperature Pulse Rate 88 86 88 Pulse Rate [ Anterior Left Throughout] Pulse Rate [ Anterior Right Throughout] Pulse Rate [ From Monitor] Respiratory 26 H 29 H Rate Respiratory Rate [Anterior Left Throughout ] Respiratory Rate [Anterior Right Throughout] Blood Pressure 154/75 136/70 151/74 O2 Sat by Pulse 99 99 Oximetry 10/19/19 10/19/19 10/19/19 06:30 07:00 07:31 Temperature Pulse Rate 78 81 81 Pulse Rate [ Anterior Left Throughout] Pulse Rate [ Anterior Right Throughout] Pulse Rate [ From Monitor] Respiratory 28 H 25 H 27 H Rate Respiratory Rate [Anterior Left Throughout ] Respiratory Rate [Anterior Right Throughout] Blood Pressure 151/74 150/64 142/66 O2 Sat by Pulse 99 100 100 Oximetry 10/19/19 10/19/19 10/19/19 08:00 08:01 08:05 Temperature 99.3 F Pulse Rate 82 84 Pulse Rate [ Anterior Left Throughout] Pulse Rate [ Anterior Right Throughout] Pulse Rate [ From Monitor] Respiratory 19 Rate Respiratory Rate [Anterior Left Throughout ] Respiratory Rate [Anterior Right Throughout] Blood Pressure 150/68 150/68 O2 Sat by Pulse 99 100 Oximetry 10/19/19 10/19/19 08:09 08:31 Temperature Pulse Rate 94 H Pulse Rate [ 80 Anterior Left Throughout] Pulse Rate [ Anterior Right Throughout] Pulse Rate [ From Monitor] Respiratory 23 Rate Respiratory 25 H Rate [Anterior Left Throughout ] Respiratory Rate [Anterior Right Throughout] Blood Pressure 160/81 O2 Sat by Pulse 97 Oximetry Constitutional: alert Eyes: non-icteric ENT: oropharynx moist Neck: supple Effort: normal Ascultation: Bilateral: diminished breath sounds Cardiovascular: regular rate and rhythm Gastrointestinal: tender Integumentary: normal Extremities: no cyanosis Neurologic: normal mental status, non-focal exam Psychiatric: mood appropriate, affect normal CBC and BMP: 10/17/19 04:08 10/19/19 04:21 ABG, PT/INR, D-dimer: ABG POC ABG pH 7.310 (7.35-7.45) L 10/17/19 05:41 ABG pH 7.456 pH Units (7.350-7.450) H 10/19/19 05:00 POC ABG pCO2 52.8 (35-45) H 10/17/19 05:41 ABG pCO2 36.4 mm Hg 10/19/19 05:00 POC ABG pO2 70 (80-105) L 10/17/19 05:41 ABG pO2 78.8 mm Hg (80.0-90.0) L 10/19/19 05:00 POC ABG HCO3 26.6 (22-26 mml/L) 10/17/19 05:41 POC ABG Total CO2 28 (23-27mmol/L) 10/17/19 05:41 POC ABG O2 Sat 92 10/17/19 05:41 ABG O2 Saturation 97.0 % (95.0-99.0) 10/19/19 05:00 Abnormal lab findings: Abnormal Labs 10/06/19 10/06/19 10/07/19 05:36 05:36 05:54 WBC 21.8 H 21.5 H RBC 3.55 L Hgb 10.9 L Hct 32.7 L RDW Plt Count Seg Neuts % (Manual) 91.0 H Lymphocytes % (Manual) 2.0 L Seg Neutrophils # Man 19.8 H Lymphocytes # (Manual) 0.4 L Monocytes # (Manual) 1.1 H POC ABG pH ABG pH POC ABG pCO2 POC ABG pO2 ABG pO2 ABG HCO3 ABG Base Excess ABG Hemoglobin Oxyhemoglobin Sodium 135 L Potassium Chloride 95.9 L Carbon Dioxide BUN Creatinine 0.7 L Glucose POC Glucose Calcium Phosphorus Magnesium Direct Bilirubin AST C-Reactive Protein Serum Total Protein Total Protein 5.7 L Albumin 2.5 L Prealbumin Xvmcq-4-Ebmylgtsv Bwkdp-2-Wpvbzgzta Gamma Globulins PEP Interpretation Urine Creatinine Urine Total Protein Digoxin Crossmatch 10/07/19 10/09/19 10/09/19 05:54 10:52 10:52 WBC 16.6 H RBC Hgb Hct RDW Plt Count 498 H Seg Neuts % (Manual) 93.0 H Lymphocytes % (Manual) 5.0 L Seg Neutrophils # Man 15.4 H Lymphocytes # (Manual) 0.8 L Monocytes # (Manual) POC ABG pH ABG pH POC ABG pCO2 POC ABG pO2 ABG pO2 ABG HCO3 ABG Base Excess ABG Hemoglobin Oxyhemoglobin Sodium Potassium Chloride 97.9 L Carbon Dioxide 20 L D BUN 23 H Creatinine 1.7 H D Glucose 109 H POC Glucose Calcium 8.1 L Phosphorus Magnesium Direct Bilirubin AST C-Reactive Protein Serum Total Protein Total Protein Albumin Prealbumin Eudna-1-Jmpaacvba Hhfhp-6-Xkgtrkqkw Gamma Globulins PEP Interpretation Urine Creatinine Urine Total Protein Digoxin Crossmatch 10/09/19 10/10/19 10/10/19 17:23 05:30 05:30 WBC 14.6 H RBC Hgb 11.1 L Hct 33.5 L RDW Plt Count 527 H Seg Neuts % (Manual) Lymphocytes % (Manual) Seg Neutrophils # Man Lymphocytes # (Manual) Monocytes # (Manual) POC ABG pH ABG pH POC ABG pCO2 POC ABG pO2 ABG pO2 ABG HCO3 ABG Base Excess ABG Hemoglobin Oxyhemoglobin Sodium 130 L D Potassium 5.1 H Chloride 90.0 L 91.0 L Carbon Dioxide 20 L 20 L BUN 27 H 35 H Creatinine 1.9 H 2.0 H Glucose 104 H POC Glucose Calcium Phosphorus Magnesium Direct Bilirubin AST C-Reactive Protein Serum Total Protein Total Protein Albumin Prealbumin Foepp-3-Jxqxmzksb Qders-7-Xjguaysgg Gamma Globulins PEP Interpretation Urine Creatinine Urine Total Protein Digoxin Crossmatch 10/10/19 10/10/19 10/11/19 08:33 08:44 05:41 WBC 13.2 H RBC Hgb 11.3 L Hct 33.8 L RDW 15.3 H Plt Count 543 H Seg Neuts % (Manual) Lymphocytes % (Manual) Seg Neutrophils # Man Lymphocytes # (Manual) Monocytes # (Manual) POC ABG pH ABG pH POC ABG pCO2 POC ABG pO2 ABG pO2 ABG HCO3 ABG Base Excess ABG Hemoglobin Oxyhemoglobin Sodium Potassium Chloride Carbon Dioxide BUN Creatinine Glucose 113 H POC Glucose 117 H Calcium Phosphorus Magnesium Direct Bilirubin AST C-Reactive Protein Serum Total Protein Total Protein Albumin Prealbumin Uhetd-6-Jtcazkdpe Xvyqd-9-Msfxbtmxm Gamma Globulins PEP Interpretation Urine Creatinine Urine Total Protein Digoxin Crossmatch 10/11/19 10/11/19 10/11/19 05:41 06:23 06:23 WBC RBC Hgb Hct RDW Plt Count Seg Neuts % (Manual) Lymphocytes % (Manual) Seg Neutrophils # Man Lymphocytes # (Manual) Monocytes # (Manual) POC ABG pH ABG pH POC ABG pCO2 POC ABG pO2 ABG pO2 ABG HCO3 ABG Base Excess ABG Hemoglobin Oxyhemoglobin Sodium 134 L Potassium Chloride 96.3 L Carbon Dioxide BUN 37 H Creatinine Glucose 58 L POC Glucose Calcium Phosphorus 4.90 H Magnesium Direct Bilirubin AST C-Reactive Protein Serum Total Protein Total Protein Albumin Prealbumin Sutqr-2-Athcysjml Qdiqo-0-Ewjwanhao Gamma Globulins PEP Interpretation Urine Creatinine 118.2 H 116.8 H Urine Total Protein 105 H 104 H Digoxin Crossmatch 10/11/19 10/12/19 10/12/19 09:00 06:09 06:09 WBC 13.8 H RBC 3.39 L Hgb 10.2 L Hct 30.9 L RDW 15.5 H Plt Count 459 H Seg Neuts % (Manual) Lymphocytes % (Manual) Seg Neutrophils # Man Lymphocytes # (Manual) Monocytes # (Manual) POC ABG pH ABG pH POC ABG pCO2 POC ABG pO2 ABG pO2 ABG HCO3 ABG Base Excess ABG Hemoglobin Oxyhemoglobin Sodium 131 L Potassium Chloride 96.2 L Carbon Dioxide 21 L BUN 43 H Creatinine Glucose 72 L POC Glucose Calcium Phosphorus Magnesium Direct Bilirubin AST C-Reactive Protein Serum Total Protein 5.2 L Total Protein Albumin 1.9 L Prealbumin Shpxv-3-Ydsdfkkho 0.9 H Lswua-1-Usurolbzk 1.0 H Gamma Globulins 0.7 L PEP Interpretation see below H Urine Creatinine Urine Total Protein Digoxin Crossmatch 10/12/19 10/12/19 10/12/19 08:20 09:30 09:30 WBC RBC Hgb Hct RDW Plt Count Seg Neuts % (Manual) Lymphocytes % (Manual) Seg Neutrophils # Man Lymphocytes # (Manual) Monocytes # (Manual) POC ABG pH ABG pH POC ABG pCO2 POC ABG pO2 63 L ABG pO2 ABG HCO3 ABG Base Excess ABG Hemoglobin Oxyhemoglobin Sodium Potassium Chloride Carbon Dioxide BUN Creatinine Glucose POC Glucose Calcium Phosphorus Magnesium 2.50 H Direct Bilirubin 0.3 H AST C-Reactive Protein Serum Total Protein Total Protein 5.1 L Albumin 2.2 L Prealbumin Vvvwr-6-Dppsacwex Duqhc-2-Kwgzmdgqn Gamma Globulins PEP Interpretation Urine Creatinine Urine Total Protein Digoxin Crossmatch 10/13/19 10/13/19 10/13/19 04:20 04:20 13:20 WBC 15.7 H RBC 3.64 L Hgb 10.9 L Hct 33.1 L RDW 15.8 H Plt Count 488 H Seg Neuts % (Manual) Lymphocytes % (Manual) Seg Neutrophils # Man Lymphocytes # (Manual) Monocytes # (Manual) POC ABG pH ABG pH POC ABG pCO2 POC ABG pO2 ABG pO2 ABG HCO3 ABG Base Excess ABG Hemoglobin Oxyhemoglobin Sodium Potassium Chloride Carbon Dioxide BUN 28 H Creatinine Glucose POC Glucose Calcium Phosphorus Magnesium Direct Bilirubin AST C-Reactive Protein Serum Total Protein Total Protein Albumin Prealbumin Rfjme-2-Oxfncwvux Qlkur-6-Nwfomuxpv Gamma Globulins PEP Interpretation Urine Creatinine Urine Total Protein Digoxin Crossmatch See Detail 10/13/19 10/13/19 10/14/19 18:24 20:05 04:47 WBC 24.2 H RBC Hgb 10.9 L Hct 34.2 L RDW 17.0 H Plt Count 442 H Seg Neuts % (Manual) Lymphocytes % (Manual) Seg Neutrophils # Man Lymphocytes # (Manual) Monocytes # (Manual) POC ABG pH ABG pH 7.180 L* 7.278 L POC ABG pCO2 POC ABG pO2 ABG pO2 130.7 H ABG HCO3 ABG Base Excess -6.5 L -6.5 L ABG Hemoglobin 12.2 L 12.3 L Oxyhemoglobin 92.9 L Sodium Potassium Chloride Carbon Dioxide BUN Creatinine Glucose POC Glucose Calcium Phosphorus Magnesium Direct Bilirubin AST C-Reactive Protein Serum Total Protein Total Protein Albumin Prealbumin Lwgsy-9-Vvokdvhpf Kbepr-7-Xewvfablf Gamma Globulins PEP Interpretation Urine Creatinine Urine Total Protein Digoxin Crossmatch 10/14/19 10/14/19 10/14/19 04:47 05:40 10:14 WBC RBC Hgb Hct RDW Plt Count Seg Neuts % (Manual) Lymphocytes % (Manual) Seg Neutrophils # Man Lymphocytes # (Manual) Monocytes # (Manual) POC ABG pH ABG pH POC ABG pCO2 POC ABG pO2 ABG pO2 76.3 L ABG HCO3 19.1 L ABG Base Excess -5.8 L ABG Hemoglobin 10.9 L Oxyhemoglobin 93.4 L Sodium Potassium 5.1 H D Chloride 109.2 H Carbon Dioxide 17 L BUN 38 H Creatinine 1.8 H D Glucose 104 H POC Glucose Calcium 7.4 L Phosphorus 5.60 H Magnesium Direct Bilirubin AST C-Reactive Protein Serum Total Protein Total Protein Albumin Prealbumin Fieoi-1-Hczlawafy Npxup-7-Cqkgfwttd Gamma Globulins PEP Interpretation Urine Creatinine Urine Total Protein Digoxin Crossmatch 10/14/19 10/15/19 10/15/19 23:46 04:32 04:32 WBC 15.5 H RBC 2.89 L Hgb 8.8 L Hct 27.3 L D RDW 16.6 H Plt Count Seg Neuts % (Manual) Lymphocytes % (Manual) Seg Neutrophils # Man Lymphocytes # (Manual) Monocytes # (Manual) POC ABG pH ABG pH POC ABG pCO2 POC ABG pO2 ABG pO2 ABG HCO3 ABG Base Excess ABG Hemoglobin Oxyhemoglobin Sodium 147 H Potassium Chloride 114.0 H Carbon Dioxide 19 L BUN 42 H Creatinine Glucose 112 H POC Glucose 113 H Calcium 7.3 L Phosphorus Magnesium Direct Bilirubin AST 72 H C-Reactive Protein 30.60 H Serum Total Protein Total Protein 4.0 L D Albumin 1.7 L Prealbumin 0.030 L Jcsol-2-Gkiveekag Gkjyx-0-Rxbvhfugi Gamma Globulins PEP Interpretation Urine Creatinine Urine Total Protein Digoxin Crossmatch 10/15/19 10/15/19 10/15/19 05:30 12:08 17:23 WBC RBC Hgb Hct RDW Plt Count Seg Neuts % (Manual) Lymphocytes % (Manual) Seg Neutrophils # Man Lymphocytes # (Manual) Monocytes # (Manual) POC ABG pH ABG pH 7.296 L POC ABG pCO2 POC ABG pO2 ABG pO2 114.7 H ABG HCO3 ABG Base Excess -3.7 L ABG Hemoglobin 8.9 L Oxyhemoglobin Sodium Potassium Chloride Carbon Dioxide BUN Creatinine Glucose POC Glucose 106 H 106 H Calcium Phosphorus Magnesium Direct Bilirubin AST C-Reactive Protein Serum Total Protein Total Protein Albumin Prealbumin Dlxiy-8-Tcbvedwzs Ziqeg-2-Coqwulrsb Gamma Globulins PEP Interpretation Urine Creatinine Urine Total Protein Digoxin Crossmatch 10/16/19 10/16/19 10/16/19 00:07 04:44 05:24 WBC RBC Hgb Hct RDW Plt Count Seg Neuts % (Manual) Lymphocytes % (Manual) Seg Neutrophils # Man Lymphocytes # (Manual) Monocytes # (Manual) POC ABG pH ABG pH POC ABG pCO2 POC ABG pO2 ABG pO2 ABG HCO3 ABG Base Excess ABG Hemoglobin Oxyhemoglobin Sodium 150 H Potassium Chloride 115.8 H Carbon Dioxide BUN 35 H Creatinine Glucose 129 H POC Glucose 119 H 129 H Calcium 7.3 L Phosphorus 1.80 L D Magnesium Direct Bilirubin AST C-Reactive Protein Serum Total Protein Total Protein Albumin Prealbumin Gsiqz-2-Txfphbwul Xttvv-8-Sjmgbqzov Gamma Globulins PEP Interpretation Urine Creatinine Urine Total Protein Digoxin Crossmatch 10/16/19 10/16/19 10/16/19 06:53 09:20 11:58 WBC 14.6 H RBC 2.70 L Hgb 8.1 L Hct 25.2 L RDW 16.7 H Plt Count Seg Neuts % (Manual) 79.0 H Lymphocytes % (Manual) 4.0 L Seg Neutrophils # Man 11.5 H Lymphocytes # (Manual) 0.6 L Monocytes # (Manual) POC ABG pH ABG pH POC ABG pCO2 47.0 H POC ABG pO2 ABG pO2 ABG HCO3 ABG Base Excess ABG Hemoglobin Oxyhemoglobin Sodium Potassium Chloride Carbon Dioxide BUN Creatinine Glucose POC Glucose Calcium Phosphorus Magnesium Direct Bilirubin AST C-Reactive Protein Serum Total Protein Total Protein Albumin Prealbumin Uircf-8-Uwvodmryh Nhazv-8-Sseckzbun Gamma Globulins PEP Interpretation Urine Creatinine Urine Total Protein Digoxin Crossmatch See Detail 10/16/19 10/16/19 10/16/19 15:23 17:50 23:58 WBC RBC Hgb Hct RDW Plt Count Seg Neuts % (Manual) Lymphocytes % (Manual) Seg Neutrophils # Man Lymphocytes # (Manual) Monocytes # (Manual) POC ABG pH ABG pH POC ABG pCO2 POC ABG pO2 ABG pO2 ABG HCO3 ABG Base Excess ABG Hemoglobin Oxyhemoglobin Sodium Potassium Chloride Carbon Dioxide BUN Creatinine Glucose POC Glucose 221 H 201 H 179 H Calcium Phosphorus Magnesium Direct Bilirubin AST C-Reactive Protein Serum Total Protein Total Protein Albumin Prealbumin Kpddf-3-Qceeqnlrv Gapep-8-Ubpyamwiq Gamma Globulins PEP Interpretation Urine Creatinine Urine Total Protein Digoxin Crossmatch 10/17/19 10/17/19 10/17/19 04:08 04:08 05:41 WBC 22.3 H RBC 3.35 L Hgb 10.0 L Hct 31.2 L D RDW 16.1 H Plt Count Seg Neuts % (Manual) Lymphocytes % (Manual) Seg Neutrophils # Man Lymphocytes # (Manual) Monocytes # (Manual) POC ABG pH 7.310 L ABG pH POC ABG pCO2 52.8 H POC ABG pO2 70 L ABG pO2 ABG HCO3 ABG Base Excess ABG Hemoglobin Oxyhemoglobin Sodium 147 H Potassium Chloride 114.9 H Carbon Dioxide BUN 36 H Creatinine Glucose 165 H POC Glucose Calcium 6.9 L Phosphorus 2.20 L D Magnesium Direct Bilirubin AST C-Reactive Protein Serum Total Protein Total Protein Albumin Prealbumin Idhjn-5-Fjdmynkxt Swyzf-2-Youjpwcqe Gamma Globulins PEP Interpretation Urine Creatinine Urine Total Protein Digoxin Crossmatch 10/17/19 10/17/19 10/17/19 05:42 11:33 18:17 WBC RBC Hgb Hct RDW Plt Count Seg Neuts % (Manual) Lymphocytes % (Manual) Seg Neutrophils # Man Lymphocytes # (Manual) Monocytes # (Manual) POC ABG pH ABG pH POC ABG pCO2 POC ABG pO2 ABG pO2 ABG HCO3 ABG Base Excess ABG Hemoglobin Oxyhemoglobin Sodium Potassium Chloride Carbon Dioxide BUN Creatinine Glucose POC Glucose 149 H 154 H 163 H Calcium Phosphorus Magnesium Direct Bilirubin AST C-Reactive Protein Serum Total Protein Total Protein Albumin Prealbumin Kueos-4-Dhdkmzbvp Hekpx-2-Nhzdmqahu Gamma Globulins PEP Interpretation Urine Creatinine Urine Total Protein Digoxin Crossmatch 10/17/19 10/18/19 10/18/19 23:34 03:29 04:50 WBC RBC Hgb Hct RDW Plt Count Seg Neuts % (Manual) Lymphocytes % (Manual) Seg Neutrophils # Man Lymphocytes # (Manual) Monocytes # (Manual) POC ABG pH ABG pH POC ABG pCO2 POC ABG pO2 ABG pO2 78.8 L ABG HCO3 ABG Base Excess ABG Hemoglobin 8.8 L Oxyhemoglobin Sodium Potassium Chloride 111.8 H Carbon Dioxide BUN 27 H Creatinine 0.6 L Glucose 140 H POC Glucose 135 H Calcium 7.1 L Phosphorus 1.80 L Magnesium Direct Bilirubin AST C-Reactive Protein Serum Total Protein Total Protein Albumin Prealbumin Apqlg-7-Aoaffpwyc Zfnak-2-Huydkwdss Gamma Globulins PEP Interpretation Urine Creatinine Urine Total Protein Digoxin Crossmatch 10/18/19 10/18/19 10/18/19 05:45 11:19 18:26 WBC RBC Hgb Hct RDW Plt Count Seg Neuts % (Manual) Lymphocytes % (Manual) Seg Neutrophils # Man Lymphocytes # (Manual) Monocytes # (Manual) POC ABG pH ABG pH POC ABG pCO2 POC ABG pO2 ABG pO2 ABG HCO3 ABG Base Excess ABG Hemoglobin Oxyhemoglobin Sodium Potassium Chloride Carbon Dioxide BUN Creatinine Glucose POC Glucose 145 H 152 H 125 H Calcium Phosphorus Magnesium Direct Bilirubin AST C-Reactive Protein Serum Total Protein Total Protein Albumin Prealbumin Ppyns-4-Vdjfnvxbq Qdpkn-0-Ppgdkzrhj Gamma Globulins PEP Interpretation Urine Creatinine Urine Total Protein Digoxin Crossmatch 10/18/19 10/19/19 10/19/19 23:27 04:21 04:21 WBC RBC Hgb Hct RDW Plt Count Seg Neuts % (Manual) Lymphocytes % (Manual) Seg Neutrophils # Man Lymphocytes # (Manual) Monocytes # (Manual) POC ABG pH ABG pH POC ABG pCO2 POC ABG pO2 ABG pO2 ABG HCO3 ABG Base Excess ABG Hemoglobin Oxyhemoglobin Sodium Potassium Chloride 108.4 H Carbon Dioxide BUN 22 H Creatinine 0.5 L Glucose 123 H POC Glucose 127 H Calcium 7.4 L Phosphorus 1.80 L Magnesium Direct Bilirubin AST C-Reactive Protein Serum Total Protein Total Protein Albumin Prealbumin Nscty-4-Zjmssdrli Dkhoe-8-Fijroqkxy Gamma Globulins PEP Interpretation Urine Creatinine Urine Total Protein Digoxin 0.7 L Crossmatch 10/19/19 10/19/19 05:00 05:35 WBC RBC Hgb Hct RDW Plt Count Seg Neuts % (Manual) Lymphocytes % (Manual) Seg Neutrophils # Man Lymphocytes # (Manual) Monocytes # (Manual) POC ABG pH ABG pH 7.456 H POC ABG pCO2 POC ABG pO2 ABG pO2 78.8 L ABG HCO3 ABG Base Excess ABG Hemoglobin 5.6 L Oxyhemoglobin Sodium Potassium Chloride Carbon Dioxide BUN Creatinine Glucose POC Glucose 124 H Calcium Phosphorus Magnesium Direct Bilirubin AST C-Reactive Protein Serum Total Protein Total Protein Albumin Prealbumin Exsrq-3-Jaclwssdt Ubdtt-9-Qbzjxuoit Gamma Globulins PEP Interpretation Urine Creatinine Urine Total Protein Digoxin Crossmatch
[2019-10-19] MEDS ORDERED: ROCURONIUM 50 MG/5 ML INJ IV ONE ×2 (12:59→14:40)
--- NOTE | 2019-10-19 13:24 | Event Note ---
Date: 10/19/19 Off the floor. Went to OR. No fever. Continue antibiotics. Duration will depend on surgical findings and final closure plans.
[2019-10-19] MEDS ORDERED: SODIUM CHLORIDE 0.9% 1000 ML 1,000 ML ONE ×3 (13:32→17:23)
--- NOTE | 2019-10-19 13:44 | Progress Note ---
Assessment and Plan Assessment and plan: 54 yo male with hx of CAD, NV, emphysema, COPD who presents with prolonged complicated course as a result of a bowel perforation. He has had 3 surgeries over the course of 10 days. On admission, a portion of his intestines protruded through the wound after severe cough. Dehiscence of closure of fascia * Went to OR for ex lap with closure of abdominal wall and wound vac placement (10/05) * Continued to decline with possible Air vs fluid, 10/10/19 IR went in and placed two drains, Noted to have possible fecal material * Returned to the OR 10/13/19 due to concern for intra-abdominal infection and was found to have with heavy contamination of abdomen patent had disruption of bowel anastomosis, abdominal washout, abthera placement and colon stapled transection and left bowel enterotomy from anastomosis completely open * Returned to OR on 10/16/19 for abdominal washout, Partial Omentectomy, Partial Colectomy, Colostomy Creation and AbThera Placement Severe sepsis secondary to bowel leak at anastomosis site/PNA -cont IV zosyn and fluconazole -surgical culture positive for enterococcus duras Acute Respiratory failure with hypoxia -on MV support -Gas Regulator Repairer Helper following Left lower lobe pneumonia -Continue IV antibiotic -CTA chest showed left lower lobe consolidation with pleural effusion GUILLERMO on CRF -probably ATN due to sepsis -Improving, will monitor -SPEP and UPEP pending -No hydronephrosis on CT -[place] in place, monitor I/O's Severe Metabolic acidosis -Improved Acute Toxic Metabolic Encephalopathy/Delirium Tremens -Started on CIWA protocol due to hx of ETOH abuse, 6packs a day -Head CT scan negative for acute findings Hyperkalemia -Resolved Hyponatremia, now hypernatremia -Improving on IV 1/2NS, will monitor Acute blood loss anemia -H/H stable -Continue to monitor H&H and transfuse for hb<7 SVT, Atrial fib/flutter with RVR -treated with adenosine x1 -on IV amiodarone drip, cardizem drip and PRN IV Lopressor. Off digoxin -HR currently controlled -Cardiology following Hypotension -Off esmolol drip -s/p IV fluid boluses, BP stable Hypophosphatemia -will monitor level Hx of Hypertension -Stable Hyperlipidemia -stable Atypical chest pain -probably secondary to pneumonitis -troponin levels neg Hx of NV/CAD -s/p PCI of the circumflex and second vessel POBA of the distal LAD occlusion. Left ventricle fraction of 45-50%. Morbid obesity with BMI of 45.4 -Lifestyle modification recommended COPD -Stable -cont neb tx Moderate Protein calorie malnutrition secondary to surgery -On TPN -Nutrition following Tobacco abuse -Cessation recommended Morbid obesity with BMI of 45.4 -Lifestyle modification recommended Disp: Very poor prognosis. d/c per clinical course Critical time spent: 35 mins History Interval history: Patient is intubated and nonverbal. He was mildly agitated this a.m. Hospitalist Physical - Constitutional Vitals: Temp Pulse Resp BP Pulse Ox 99.3 F 96 H 23 171/69 97 10/19/19 08:00 10/19/19 12:14 10/19/19 08:31 10/19/19 12:14 10/19/19 12:14 General appearance: Present: no acute distress, obese - EENT Eyes: Present: PERRL ENT: other (pt is intubated) - Neck Neck: Present: supple - Respiratory Respiratory: bilateral: diminished, rales (bibasilar lungs) - Cardiovascular Rhythm: irregularly irregular Heart Sounds: Present: S1 & S2 - Extremities Extremity abnormal: edema (in BLE) - Abdominal General gastrointestinal: soft, hypoactive bowel sounds, other (surgical sites clean. wound VAC, colostomy bag and drain noted) - Psychiatric Psychiatric: other (unable to assess due to altered mental status) - Neurologic Neurologic: other (patient opens eyes but unable to follow commands) Results - Labs CBC & Chem 7: 10/17/19 04:08 10/19/19 04:21 Labs: Laboratory Last Values WBC 22.3 K/mm3 (4.5-11.0) H 10/17/19 04:08 RBC 3.35 M/mm3 (3.65-5.03) L 10/17/19 04:08 Hgb 10.0 gm/dl (11.8-15.2) L 10/17/19 04:08 Hct 31.2 % (35.5-45.6) L D 10/17/19 04:08 MCV 93 fl (84-94) 10/17/19 04:08 MCH 30 pg (28-32) 10/17/19 04:08 MCHC 32 % (32-34) 10/17/19 04:08 RDW 16.1 % (13.2-15.2) H 10/17/19 04:08 Plt Count 188 K/mm3 (140-440) 10/17/19 04:08 Add Manual Diff Complete 10/16/19 09:20 Total Counted 100 10/16/19 09:20 Seg Neutrophils % Bench Assembly Inspector 10/09/19 10:52 Seg Neuts % (Manual) 79.0 % (40.0-70.0) H 10/16/19 09:20 Band Neutrophils % 12.0 % 10/16/19 09:20 Lymphocytes % (Manual) 4.0 % (13.4-35.0) L 10/16/19 09:20 Reactive Lymphs % (Man) 0 % 10/16/19 09:20 Monocytes % (Manual) 2.0 % (0.0-7.3) 10/16/19 09:20 Eosinophils % (Manual) 0 % (0.0-4.3) 10/16/19 09:20 Basophils % (Manual) 0 % (0.0-1.8) 10/16/19 09:20 Metamyelocytes % 2.0 % 10/16/19 09:20 Myelocytes % 1.0 % 10/16/19 09:20 Promyelocytes % 0 % 10/16/19 09:20 Blast Cells % 0 % 10/16/19 09:20 Nucleated RBC % Not Reportable 10/16/19 09:20 Seg Neutrophils # Man 11.5 K/mm3 (1.8-7.7) H 10/16/19 09:20 Band Neutrophils # 1.8 K/mm3 10/16/19 09:20 Lymphocytes # (Manual) 0.6 K/mm3 (1.2-5.4) L 10/16/19 09:20 Abs React Lymphs (Man) 0.0 K/mm3 10/16/19 09:20 Monocytes # (Manual) 0.3 K/mm3 (0.0-0.8) 10/16/19 09:20 Eosinophils # (Manual) 0.0 K/mm3 (0.0-0.4) 10/16/19 09:20 Basophils # (Manual) 0.0 K/mm3 (0.0-0.1) 10/16/19 09:20 Metamyelocytes # 0.3 K/mm3 10/16/19 09:20 Myelocytes # 0.1 K/mm3 10/16/19 09:20 Promyelocytes # 0.0 K/mm3 10/16/19 09:20 Blast Cells # 0.0 K/mm3 10/16/19 09:20 WBC Morphology Not Reportable 10/16/19 09:20 Hypersegmented Neuts Not Reportable 10/16/19 09:20 Hyposegmented Neuts Not Reportable 10/16/19 09:20 Hypogranular Neuts Not Reportable 10/16/19 09:20 Smudge Cells Not Reportable 10/16/19 09:20 Toxic Granulation Not Reportable 10/16/19 09:20 Toxic Vacuolation Not Reportable 10/16/19 09:20 Dohle Bodies Not Reportable 10/16/19 09:20 Pelger-Huet Anomaly Not Reportable 10/16/19 09:20 Andres Rods Not Reportable 10/16/19 09:20 Platelet Estimate Consistent w auto 10/16/19 09:20 Clumped Platelets Not Reportable 10/16/19 09:20 Plt Clumps, EDTA Not Reportable 10/16/19 09:20 Large Platelets Not Reportable 10/16/19 09:20 Giant Platelets Not Reportable 10/16/19 09:20 Platelet Satelliting Not Reportable 10/16/19 09:20 Plt Morphology Comment Not Reportable 10/16/19 09:20 RBC Morphology Not Reportable 10/16/19 09:20 Dimorphic RBCs Not Reportable 10/16/19 09:20 Polychromasia Few 10/16/19 09:20 Hypochromasia Few 10/16/19 09:20 Poikilocytosis Not Reportable 10/16/19 09:20 Anisocytosis Not Reportable 10/16/19 09:20 Microcytosis Not Reportable 10/16/19 09:20 Macrocytosis Not Reportable 10/16/19 09:20 Spherocytes Not Reportable 10/16/19 09:20 Pappenheimer Bodies Not Reportable 10/16/19 09:20 Sickle Cells Not Reportable 10/16/19 09:20 Target Cells Few 10/16/19 09:20 Tear Drop Cells Not Reportable 10/16/19 09:20 Ovalocytes Not Reportable 10/16/19 09:20 Helmet Cells Not Reportable 10/16/19 09:20 Varghese-Boykin Bodies Not Reportable 10/16/19 09:20 [place] Rings Not Reportable 10/16/19 09:20 Bishnu Cells Not Reportable 10/16/19 09:20 Bite Cells Not Reportable 10/16/19 09:20 Crenated Cell Not Reportable 10/16/19 09:20 Elliptocytes Not Reportable 10/16/19 09:20 Acanthocytes (Spur) Not Reportable 10/16/19 09:20 Rouleaux Not Reportable 10/16/19 09:20 Hemoglobin C Crystals Not Reportable 10/16/19 09:20 Schistocytes Not Reportable 10/16/19 09:20 Malaria parasites Not Reportable 10/16/19 09:20 Toni Bodies Not Reportable 10/16/19 09:20 Hem Pathologist Commnt No 10/16/19 09:20 POC ABG pH 7.310 (7.35-7.45) L 10/17/19 05:41 ABG pH 7.456 pH Units (7.350-7.450) H 10/19/19 05:00 POC ABG pCO2 52.8 (35-45) H 10/17/19 05:41 ABG pCO2 36.4 mm Hg 10/19/19 05:00 POC ABG pO2 70 (80-105) L 10/17/19 05:41 ABG pO2 78.8 mm Hg (80.0-90.0) L 10/19/19 05:00 POC ABG HCO3 26.6 (22-26 mml/L) 10/17/19 05:41 ABG HCO3 25.1 mmol/L (20.0-26.0) 10/19/19 05:00 POC ABG Total CO2 28 (23-27mmol/L) 10/17/19 05:41 POC ABG O2 Sat 92 10/17/19 05:41 ABG O2 Saturation 97.0 % (95.0-99.0) 10/19/19 05:00 ABG O2 Content 7.6 (0.0-44) 10/19/19 05:00 POC ABG Base Excess 0 ((-2) - (+3)mmol/L) 10/17/19 05:41 ABG Base Excess 1.1 mmol/L (-2.0-3.0) 10/19/19 05:00 ABG Hemoglobin 5.6 gm/dl (14.0-18.0) L 10/19/19 05:00 ABG Carboxyhemoglobin 1.3 % (0.0-5.0) 10/19/19 05:00 ABG Methemoglobin 0.5 % (0.0-1.5) 10/19/19 05:00 Oxyhemoglobin 95.2 % (95.0-99.0) 10/19/19 05:00 FiO2 35 % 10/19/19 05:00 Sodium 144 mmol/L (137-145) 10/19/19 04:21 Potassium 3.8 mmol/L (3.6-5.0) 10/19/19 04:21 Chloride 108.4 mmol/L (98-107) H 10/19/19 04:21 Carbon Dioxide 23 mmol/L (22-30) 10/19/19 04:21 Anion Gap 16 mmol/L 10/19/19 04:21 BUN 22 mg/dL (9-20) H 10/19/19 04:21 Creatinine 0.5 mg/dL (0.8-1.5) L 10/19/19 04:21 Estimated GFR > 60 ml/min 10/19/19 04:21 BUN/Creatinine Ratio 44 % 10/19/19 04:21 Glucose 123 mg/dL (75-100) H 10/19/19 04:21 POC Glucose 124 (70-105) H 10/19/19 05:35 Hemoglobin A1c 5.7 % (4-6) 10/06/19 05:36 Lactic Acid 1.10 mmol/L (0.7-2.0) 10/13/19 04:20 Calcium 7.4 mg/dL (8.4-10.2) L 10/19/19 04:21 Phosphorus 1.80 mg/dL (2.5-4.5) L 10/19/19 04:21 Magnesium 1.80 mg/dL (1.7-2.3) 10/19/19 04:21 Total Bilirubin 0.30 mg/dL (0.1-1.2) 10/15/19 04:32 Direct Bilirubin 0.3 mg/dL (0-0.2) H 10/12/19 09:30 Indirect Bilirubin 0.3 mg/dL 10/12/19 09:30 AST 72 units/L (5-40) H 10/15/19 04:32 ALT 31 units/L (7-56) 10/15/19 04:32 Alkaline Phosphatase 68 units/L (35-129) 10/15/19 04:32 Ammonia 49.0 umol/L (25-60) 10/13/19 04:20 Troponin T < 0.010 ng/mL (0.00-0.029) 10/09/19 17:23 C-Reactive Protein 30.60 mg/dL (0.00-1.30) H 10/15/19 04:32 Serum Total Protein 5.2 g/dL (6.1-8.1) L 10/11/19 09:00 Total Protein 4.0 g/dL (6.3-8.2) L D 10/15/19 04:32 Albumin 1.7 g/dL (3.9-5) L 10/15/19 04:32 Albumin/Globulin Ratio 0.7 % 10/15/19 04:32 Prealbumin 0.030 g/L (0.200-0.400) L 10/15/19 04:32 Oqict-6-Lynzgwpsx 0.9 g/dL (0.2-0.3) H 10/11/19 09:00 Vbsmk-0-Frdxmdcko 1.0 g/dL (0.5-0.9) H 10/11/19 09:00 Beta Globulins 0.3 g/dL (0.2-0.5) 10/11/19 09:00 Gamma Globulins 0.7 g/dL (0.8-1.7) L 10/11/19 09:00 Abnorm Protein Band 1 see below 10/11/19 09:00 PEP Interpretation see below H 10/11/19 09:00 Triglycerides 114 mg/dL (2-149) 10/15/19 04:32 Urine Color Obd[place] (Yellow) 10/11/19 06:23 Urine Turbidity Cloudy (Clear) 10/11/19 06:23 Urine pH 5.0 (5.0-7.0) 10/11/19 06:23 Ur Specific [place] 1.018 (1.003-1.030) 10/11/19 06:23 Urine Protein 30 mg/dl mg/dL (Negative) 10/11/19 06:23 Urine Glucose (UA) Neg mg/dL (Negative) 10/11/19 06:23 Urine Ketones Neg mg/dL (Negative) 10/11/19 06:23 Urine Blood Mod (Negative) 10/11/19 06:23 Urine Nitrite Neg (Negative) 10/11/19 06:23 Urine Bilirubin Neg (Negative) 10/11/19 06:23 Urine Urobilinogen < 2.0 mg/dL (<2.0) 10/11/19 06:23 Ur Leukocyte Esterase Neg (Negative) 10/11/19 06:23 Urine WBC (Auto) 3.0 /HPF (0.0-6.0) 10/11/19 06:23 Urine RBC (Auto) 3.0 /HPF (0.0-6.0) 10/11/19 06:23 Urine Bacteria (Auto) 1+ /HPF (Negative) 10/11/19 06:23 Urine Eosinophils None seen (None Seen) 10/11/19 06:23 Urine Creatinine 116.8 mg/dL (0.1-20.0) H 10/11/19 06:23 Urine Creatinine 118.2 mg/dL (0.1-20.0) H 10/11/19 06:23 Protein/Creatinin Ratio 0.89 10/11/19 06:23 Urine Sodium 14 mmol/L 10/11/19 06:23 Urine Total Protein 104 mg/dL (5-11.8) H 10/11/19 06:23 Urine Total Protein 105 mg/dL (5-11.8) H 10/11/19 06:23 Digoxin 0.7 ng/mL (0.9-2.0) L 10/19/19 04:21 Blood Type A POSITIVE 10/16/19 11:58 Antibody Screen Negative 10/16/19 11:58 Crossmatch See Detail 10/16/19 11:58 Active Medications - Current Medications Current Medications: Generic Name Dose Route Start Last Admin Trade Name Freq PRN Reason Stop Dose Admin Acetaminophen 650 mg 10/15/19 10:00 10/17/19 08:18 Tylenol NV 650 mg Q4H PRN Administration Pain MILD(1-3)/Fever >100.5/ROMANO Albuterol 2.5 mg 10/05/19 21:36 Proventil IH Q4HRT PRN Shortness Of Breath Albuterol/Ipratropium 1 ampul 10/06/19 02:00 10/19/19 08:09 Duoneb *Not For Prn Use* IH Not Given Q6HRT VERÓNICA Arformoterol Tartrate 15 mcg 10/06/19 08:30 10/19/19 08:09 Brovana Nebu IH 15 mcg Q12HRT VERÓNICA Administration Budesonide 0.5 mg 10/07/19 12:20 10/19/19 08:09 Pulmicort IH 0.5 mg Q12HRT VERÓNICA Administration Enoxaparin Sodium 40 mg 10/19/19 22:00 Enoxaparin SUB-Q QDAY@2200 VERÓNICA Fentanyl 50 mcg 10/14/19 02:19 10/19/19 09:27 Sublimaze IV 50 mcg Q10MIN PRN Administration ANALGESIA Fluconazole 200 mls @ 100 mls/hr 10/12/19 11:00 10/19/19 09:28 Diflucan IV 100 mls/hr Q24HR VERÓNICA Administration Protocol Fentanyl Citrate 2,000 mcg in 100 mls @ 6.85 mls/hr 10/14/19 03:00 10/17/19 20:00 Fentanyl Drip Premix IV 0 mcg/kg/hr TITR VERÓNICA 0 mls/hr Titration Protocol 1 MCG/KG/HR Piperacillin Sod/Tazobactam Sod 4.5 gm in 100 mls @ 200 mls/hr 10/15/19 13:00 10/19/19 06:09 Zosyn/Ns 4.5gm/100ml IV 200 mls/hr Q6HR VERÓNICA Administration Protocol Amiodarone HCl 900 mg/ 500 mls @ 33.333 mls/hr 10/15/19 16:00 10/18/19 20:28 Dextrose IV 0.5 mg/min DIRECT VERÓNICA 16.667 mls/hr Administration Protocol 1 MG/MIN Sodium Chloride 1,000 mls @ 75 mls/hr 10/16/19 14:00 10/19/19 06:09 Nacl 0.45% 1000 Ml IV 75 mls/hr DIRECT VERÓNICA Administration Sodium Chloride 1,000 mls @ 999 mls/hr 10/17/19 08:58 10/18/19 22:44 Nacl 0.45% 1000 Ml IV 999 mls/hr DIRECT PRN Administration FOR WOUND VAC/ABD REPLACEMENT Amino Acids/Electrolytes/Dextrose 2,400 mls @ 100 mls/hr 10/18/19 20:00 10/18/19 20:31 Tpn Adult IV 10/19/19 19:59 100 mls/hr DAILY@1999 [facility] Administration Protocol Amino Acids/Electrolytes/Dextrose 2,400 mls @ 100 mls/hr 10/19/19 20:00 Tpn Adult IV 10/20/19 19:59 DAILY@1999 [facility] Protocol Insulin Human Lispro 0 unit 10/14/19 12:00 10/19/19 06:11 Humalog SUB-Q Not Given Q6HR [facility] Protocol Metoprolol Tartrate 2.5 mg 10/15/19 15:34 10/18/19 00:05 Metoprolol IV 2.5 mg Q4HR PRN Administration HR >130 Metoprolol Tartrate 5 mg 10/19/19 13:00 Metoprolol IV Q8H [facility] Multi-Ingred Cream/Lotion/Oil/Oint 1 applic 10/14/19 02:19 Artificial Tears Ophth Oint OU Q4HR PRN Dry Eye(s) Ondansetron HCl 4 mg 10/05/19 21:22 10/11/19 18:20 Zofran IV 4 mg Q3H PRN Administration Nausea And Vomiting Pantoprazole Sodium 40 mg 10/15/19 10:00 10/19/19 09:28 Protonix IV 40 mg QDAY VERÓNICA Administration Sodium Chloride 10 ml 10/05/19 21:22 10/19/19 09:29 Sodium Chloride Flush Syringe 10 Ml IV 10 ml PRN PRN Administration LINE FLUSH Nutrition/Malnutrition Assess - Dietary Evaluation Nutrition/Malnutrition Findings: Nutrition Notes Start: 10/08/19 11 :36 Freq: Status: Active Protocol: Document 10/19/19 09:50 JENN (Rec: 10/19/19 10:14 JENN [id number]) Co-Sign 10/19/19 09:50 LP Nutrition Notes Initial or Follow up Reassessment Current Diagnosis Acute Kidney Injury,COPD, Hypertension Other Pertinent Diagnosis intra-abdominal infection, disruption of bowel anastomosis, LE edema Current Diet CPN at 100 ml/hr Labs/Tests BUN 22 Cr 0.5 BG 123 Phos 1.8 Pertinent Medications Reviewed Height 6 ft Weight 151.8 kg [place] Body Weight (kg) 80.90 BMI 45.3 Weight Status Morbidly Obese Subjective/Other Information CPN day 6. TF placement scheduled for today. Increasing K to increase phos due to pharmacy concerns. Percent of energy/protein needs met: 60%/74% Burn Absent Trauma Absent GI Symptoms None Current % PO Negligible Minimum of two criteria No Fluid Accumulation Mild (non-severe) #2 Nutrition Diagnosis Inadequate oral intake Diagnosis Progress(for reassessment Continues documentation) #1 Nutrition Diagnosis Increased nutrient needs ( specify in comment below) Diagnosis Progress(for reassessment Continues documentation) Is patient on ventilator? Yes Is Patient Ambulatory and/or Out of Bed No REE-([place]-confined to bed) 2866.752 Kcal/Kg value to use for calculation 14 Approximate Energy Requirements Using 2125 kcal/Kg Calculation Used for Recommendations Kcal/kg Additional Notes Protein: 202g (up to 2.5 g/kg IBW 80.9 kg) Pay attention to renal issues Fluid: 1 ml/kcal or per MD Nutrition Intervention Change Diet Order: Continue CPN Nutrition Support: CPN at 100ml/hr: 1127 mOsm, 85 mEq K, 57 mmol phos, MVI Kcal 1,280 Protein (gm) 150 Carbohydrates (gm) 200 Fat (gm) 0 Fluid (mL) 2,400 Fiber (gm) 0 Goal #1 Meet energy and protein needs as best as possible via CPN Anticipated Discharge Needs: unable to determine at this time Follow-Up By: 10/20/19 Additional Comments Labs in AM: BMP, Mg, Phos. F/U for TF placement
[2019-10-19] MEDS ORDERED: HYDROmorphone 1 MG/1 ML INJ ONE (14:24)
[2019-10-19] MEDS ORDERED: SODIUM CHLORIDE 0.9% IRRIG SOLN 2000 ML IR ONE (14:30)
--- NOTE | 2019-10-19 16:49 | XRay Report ---
C-arm of the abdomen INDICATION: Feeding tube placement FINDINGS: Single view submitted shows a catheter in place presumably a jejunostomy tube. There is a h emostat or needle tapia seen with a needle overlying the abdomen as well. Total fluoroscopic time was 0.3 minutes. Signer Name: Miguelito Mo MD Signed: 10/19/2019 4:45 PM Workstation Name: [id number]
--- NOTE | 2019-10-19 17:05 | Post Operative Note ---
Date of procedure: 10/19/19 (dictation:[id number]) Pre-op diagnosis: intra-abdominal infection Post-op diagnosis: same Findings: small leak from stump staple line Procedure: abdominal washout, closure of colon stump, G-J tube placement, AbThera placement. IVf 900cc EBL<20cc Anesthesia: JOY Surgeon: ANKITA GAO Coding Advisor: TOÑO ROMO Estimated blood loss: minimal Pathology: none Condition: stable Disposition: PACU
[2019-10-19] MEDS ORDERED: PHENYLEPHRINE/NS 1,000 MCG/10 ML SYRINGE (OR USE) IV ONE (17:17)
[2019-10-19] MEDS ORDERED: EPINEPHrine 1:10,000 1 MG/10 ML SYRINGE ONE (17:20)
[2019-10-19] MEDS: fentaNYL DRIP Premix 2,000 MCG/100 ML BAG IV SCH (18:00)
[2019-10-19] MEDS ORDERED: TOTAL PARENTERAL NUTRITION 2,400 ML IV SCH (20:00)
--- NOTE | 2019-10-19 21:06 | Anesthesia Day of Surgery ---
Anesthesia Day of Surgery - Day of Surgery Patient Examined: Yes Patient H&P Reviewed: Yes Patient is NPO: Yes
--- NOTE | 2019-10-19 21:07 | Post Anesthesia Evaluation ---
- Post Anesthesia Evaluation Patient Participated: No Airway Patent: Yes Stable Respiratory Function: Yes Nausea/Vomiting: No Temp > 96.8F: Yes Pain Manageable: Yes Adequeate Hydration: Yes Anesthesia Complications: No Block Receding Appropriately: Not Applicable Patient on Ventilator: Yes
[2019-10-19] MEDS: ENOXAPARIN 40 MG/0.4 ML INJ SUB-Q SCH (21:39)
[2019-10-20] MEDS: fentaNYL DRIP Premix 2,000 MCG/100 ML BAG IV SCH ×4 (00:08→21:46)
[2019-10-20] MEDS: METOPROLOL TARTRATE 5 MG/5 ML INJ IV SCH ×3 (00:11→12:55)
[2019-10-20] MEDS: AMIODARONE 900 MG in DEXTROSE 5% IN WATER 482 ML IV SCH (02:26)
[2019-10-20] MEDS: IPRATROPIUM/ALBUTEROL SULFATE 3 ML AMPUL.NEB IH SCH ×4 (02:56→19:43)
[2019-10-20] MEDS: SODIUM CHLORIDE 0.45% 1000 ML 1,000 ML IV SCH (05:16)
[2019-10-20] MEDS: PIPERACIL/TAZOBACTA 4.5/NS 100 4.5 GM/100 ML VIAL IV SCH ×3 (05:19→17:44)
[2019-10-20 05:47] LABS: BUN/Creatinine Ratio 43; Blood Urea Nitrogen 17 mg/dL (9-20); Calcium 7.1 mg/dL (8.4-10.2); Hemolysis Index 22
[2019-10-20] MEDS: INSULIN LISPRO 100 UNIT/ML SUB-Q SCH ×4 (06:25→19:00)
[2019-10-20] MEDS: ARFORMOTEROL 15 MCG/2 ML NEBU IH SCH ×2 (07:52→19:43)
[2019-10-20] MEDS: BUDESONIDE 0.5 MG/2 ML NEBU IH SCH ×2 (07:52→19:43)
--- NOTE | 2019-10-20 09:16 | Progress Note ---
Assessment and Plan Atrial fibrillation/flutter, spontaneously reverted to sinus rhythm treated with adenosine x1 on 10/15 on IV amiodarone, and IV metoprolol - continue current medical therapy Sepsis Severe abdominal pain s/p exploratory laparotomy, abdominal washout, closure of abdominal fascia with wound vac placement on 10/05 s/p abdominal washout with partial colectomy and left colostomy on 10/16 Recent colon resection for bowel perforation following a colonoscopy Atypical chest pain chest CT reports left lower lobe pleural effusion with suspected left upper lobe pneumonia. troponins are normal no further cardiac workup indicated Hx of [place]/CAD [facility] 12/2017: PCI of the circumflex and second vessel POBA of the distal LAD occlusion. Left ventricle fraction 45-50%. ASA and statin when patient is able to take PO Tobacco abuse COPD - management per primary Hypertension - maximize medical therapy as required Hyperlipidemia - restart statin when patient is able to tolerate PO Subjective Date of service: 10/20/19 Principal diagnosis: acute renal failure Interval history: No acute events overnight. currently in sinus rhythm. Objective Vital Signs Temp Pulse Pulse Pulse Resp Resp BP 10/20/19 07:54 93 H 113/49 10/20/19 07:53 96 H 28 H 10/20/19 06:24 99.0 F 10/20/19 06:01 78 20 120/50 10/20/19 05:31 82 18 107/43 10/20/19 05:00 80 15 117/54 10/20/19 04:31 77 17 107/43 10/20/19 04:01 82 12 107/43 10/20/19 04:00 83 78 21 10/20/19 03:31 83 17 117/49 10/20/19 03:30 99.0 F 10/20/19 03:01 82 19 117/49 10/20/19 02:31 83 17 128/52 10/20/19 02:01 89 21 128/52 10/20/19 02:00 83 19 10/20/19 01:31 92 H 18 146/59 10/20/19 01:01 87 27 H 146/59 10/20/19 01:00 87 117/49 10/20/19 00:31 86 20 142/61 10/20/19 00:11 85 142/61 10/20/19 00:01 85 23 142/61 10/20/19 00:00 82 85 20 10/19/19 23:31 86 20 143/64 10/19/19 23:01 87 20 143/64 10/19/19 23:00 88 24 143/64 10/19/19 22:31 82 22 128/53 10/19/19 22:01 89 26 H 128/53 10/19/19 21:31 84 21 124/40 10/19/19 21:01 90 23 137/46 10/19/19 21:00 89 120/47 10/19/19 20:31 83 22 117/44 10/19/19 20:00 92 H 92 H 83 24 32 H 139/54 10/19/19 19:47 100 F H 10/19/19 19:30 91 H 30 H 135/47 10/19/19 19:00 95 H 23 150/55 10/19/19 18:30 93 H 29 H 154/65 10/19/19 18:00 90 18 160/78 10/19/19 17:45 91 H 30 H 150/60 10/19/19 17:42 91 H 150/60 10/19/19 17:40 88 32 H 134/59 10/19/19 17:35 89 34 H 142/55 10/19/19 17:30 85 29 H 124/60 10/19/19 17:29 98.3 F 85 31 H 120/54 10/19/19 13:46 96 H 28 H 10/19/19 13:00 89 32 H 149/69 10/19/19 12:31 92 H 25 H 149/69 10/19/19 12:14 96 H 171/69 10/19/19 12:01 97 H 18 171/69 10/19/19 11:31 92 H 27 H 164/63 10/19/19 11:01 92 H 16 156/77 10/19/19 10:31 90 33 H 161/69 10/19/19 10:01 96 H 19 157/81 10/19/19 09:31 101 H 25 H 163/73 Pulse Ox 10/20/19 07:54 93 10/20/19 07:53 10/20/19 06:24 10/20/19 06:01 97 10/20/19 05:31 96 10/20/19 05:00 96 10/20/19 04:31 98 10/20/19 04:01 98 10/20/19 04:00 98 10/20/19 03:31 98 10/20/19 03:30 10/20/19 03:01 98 10/20/19 02:31 97 10/20/19 02:01 94 10/20/19 02:00 10/20/19 01:31 94 10/20/19 01:01 98 10/20/19 01:00 98 10/20/19 00:31 98 10/20/19 00:11 10/20/19 00:01 98 10/20/19 00:00 98 10/19/19 23:31 97 10/19/19 23:01 97 10/19/19 23:00 98 10/19/19 22:31 97 10/19/19 22:01 98 10/19/19 21:31 98 10/19/19 21:01 98 10/19/19 21:00 100 10/19/19 20:31 96 10/19/19 20:00 97 10/19/19 19:47 10/19/19 19:30 96 10/19/19 19:00 97 10/19/19 18:30 95 10/19/19 18:00 95 10/19/19 17:45 94 10/19/19 17:42 95 10/19/19 17:40 93 10/19/19 17:35 92 10/19/19 17:30 97 10/19/19 17:29 100 10/19/19 13:46 10/19/19 13:00 97 10/19/19 12:31 97 10/19/19 12:14 97 10/19/19 12:01 97 10/19/19 11:31 97 10/19/19 11:01 97 10/19/19 10:31 98 10/19/19 10:01 98 10/19/19 09:31 97 - Physical Examination General: Other (intubated, on the vent) HEENT: Positive: PERRL Neck: Positive: neck supple, trachea midline Abdomen: Positive: Other (abdominal wound vac is in place) Extremities: Present: +1 Edema - Labs and Meds Comprehensive Metabolic Panel 10/20/19 Range/Units 04:50 Sodium 143 (137-145) mmol/L Potassium 4.1 (3.6-5.0) mmol/L Chloride 108.1 H (98-107) mmol/L Carbon Dioxide 22 (22-30) mmol/L BUN 17 (9-20) mg/dL Creatinine 0.4 L (0.8-1.5) mg/dL Glucose 134 H (75-100) mg/dL Calcium 7.1 L (8.4-10.2) mg/dL
--- NOTE | 2019-10-20 09:48 | Progress Note ---
Assessment and Plan - Patient Problems (1) Dehiscence of closure of fascia, superficial or muscular Current Visit: No Status: Acute Qualifiers: Encounter type: initial encounter Qualified Code(s): T81.32XA - Disruption of internal operation (surgical) wound, not elsewhere classified, initial encounter Plan to address problem: Pt stable. s/p ex lap with closure of abdominal wall and wound vac placement (10/05) - POD#14; s/p Re-exploration, washout, transection of colon, Abthera placement - 10/13 - POD#6; s/p abd washout, partial omentectomy, partial colectomy with colostomy - 10/16 POD#4. s/p abd washout, feeding tube placement, AbThera placement - 10/19 - POD#1 Rec: 1) Neuro - sedated. Family states that he has not had a drink in 3 weeks. Perhaps withdrawal may not have been involved. Ativan currently held. Staff reports he is following commands 2) CV - BP much improved. Back in Sinus rhythm! 3) Resp - Vent support. Good ABG. 4) GI - Ostomy looks good. ES Drain output has concerning appearance for possibly small leak (drain volume is low) from the colon stump site. If still related to excess pressure in the colonic stump, will try another suppository today. Had good results yesterday. Ok to start trickle feeds via the Jejunal port. Would not advance beyond trickle feeds (10cc/hr) at this time. 5) - BUN/Cr look good 6) ID - Abx per ID. Enterococcus on cultures. Fevers resolved. 7) Nutrition - TPN 8) DVT prophylaxis - SCDs. Lovenox 9) Family -no family at bedside. Please call with questions. Subjective Date of service: 10/20/19 Patient Reports: Positive: other (no events o/n) Objective Vital Signs - 12hr 10/19/19 10/19/19 10/19/19 22:01 22:31 23:00 Temperature Pulse Rate 89 82 88 Pulse Rate [ Anterior Left Throughout] Pulse Rate [ From Monitor] Respiratory 26 H 22 24 Rate Respiratory Rate [Anterior Left Throughout ] Blood Pressure 128/53 128/53 143/64 O2 Sat by Pulse 98 97 98 Oximetry 10/19/19 10/19/19 10/20/19 23:01 23:31 00:00 Temperature Pulse Rate 87 86 82 Pulse Rate [ Anterior Left Throughout] Pulse Rate [ 85 From Monitor] Respiratory 20 20 20 Rate Respiratory Rate [Anterior Left Throughout ] Blood Pressure 143/64 143/64 O2 Sat by Pulse 97 97 98 Oximetry 10/20/19 10/20/19 10/20/19 00:01 00:11 00:31 Temperature Pulse Rate 85 85 86 Pulse Rate [ Anterior Left Throughout] Pulse Rate [ From Monitor] Respiratory 23 20 Rate Respiratory Rate [Anterior Left Throughout ] Blood Pressure 142/61 142/61 142/61 O2 Sat by Pulse 98 98 Oximetry 10/20/19 10/20/19 10/20/19 01:00 01:01 01:31 Temperature Pulse Rate 87 87 92 H Pulse Rate [ Anterior Left Throughout] Pulse Rate [ From Monitor] Respiratory 27 H 18 Rate Respiratory Rate [Anterior Left Throughout ] Blood Pressure 117/49 146/59 146/59 O2 Sat by Pulse 98 98 94 Oximetry 10/20/19 10/20/19 10/20/19 02:00 02:01 02:31 Temperature Pulse Rate 89 83 Pulse Rate [ 83 Anterior Left Throughout] Pulse Rate [ From Monitor] Respiratory 21 17 Rate Respiratory 19 Rate [Anterior Left Throughout ] Blood Pressure 128/52 128/52 O2 Sat by Pulse 94 97 Oximetry 10/20/19 10/20/19 10/20/19 03:01 03:30 03:31 Temperature 99.0 F Pulse Rate 82 83 Pulse Rate [ Anterior Left Throughout] Pulse Rate [ From Monitor] Respiratory 19 17 Rate Respiratory Rate [Anterior Left Throughout ] Blood Pressure 117/49 117/49 O2 Sat by Pulse 98 98 Oximetry 10/20/19 10/20/19 10/20/19 04:00 04:01 04:31 Temperature Pulse Rate 83 82 77 Pulse Rate [ Anterior Left Throughout] Pulse Rate [ 78 From Monitor] Respiratory 21 12 17 Rate Respiratory Rate [Anterior Left Throughout ] Blood Pressure 107/43 107/43 O2 Sat by Pulse 98 98 98 Oximetry 10/20/19 10/20/19 10/20/19 05:00 05:31 06:01 Temperature Pulse Rate 80 82 78 Pulse Rate [ Anterior Left Throughout] Pulse Rate [ From Monitor] Respiratory 15 18 20 Rate Respiratory Rate [Anterior Left Throughout ] Blood Pressure 117/54 107/43 120/50 O2 Sat by Pulse 96 96 97 Oximetry 10/20/19 10/20/1919 06:24 07:53 07:54 Temperature 99.0 F Pulse Rate 93 H Pulse Rate [ 96 H Anterior Left Throughout] Pulse Rate [ From Monitor] Respiratory Rate Respiratory 28 H Rate [Anterior Left Throughout ] Blood Pressure 113/49 O2 Sat by Pulse 93 Oximetry 10/20/19 08:00 Temperature Pulse Rate Pulse Rate [ Anterior Left Throughout] Pulse Rate [ 86 From Monitor] Respiratory 22 Rate Respiratory Rate [Anterior Left Throughout ] Blood Pressure O2 Sat by Pulse 96 Oximetry - General physical appearance no distress, no pain, other (intubated) - Respiratory normal expansion, normal respiratory effort - Abdomen soft, distended, other (Right ES and wound vac with mostly serous drainge. Left ES with brownish drainge. ) - Labs 10/17/19 04:08 10/20/19 04:50 Diabetes panel 10/20/19 Range/Units 04:50 Sodium 143 (137-145) mmol/L Potassium 4.1 (3.6-5.0) mmol/L Chloride 108.1 H (98-107) mmol/L Carbon Dioxide 22 (22-30) mmol/L BUN 17 (9-20) mg/dL Creatinine 0.4 L (0.8-1.5) mg/dL Glucose 134 H (75-100) mg/dL Calcium 7.1 L (8.4-10.2) mg/dL Calcium panel 10/20/19 Range/Units 04:50 Calcium 7.1 L (8.4-10.2) mg/dL Phosphorus 2.80 D (2.5-4.5) mg/dL Pituitary panel 10/20/19 Range/Units 04:50 Sodium 143 (137-145) mmol/L Potassium 4.1 (3.6-5.0) mmol/L Chloride 108.1 H (98-107) mmol/L Carbon Dioxide 22 (22-30) mmol/L BUN 17 (9-20) mg/dL Creatinine 0.4 L (0.8-1.5) mg/dL Glucose 134 H (75-100) mg/dL Calcium 7.1 L (8.4-10.2) mg/dL Adrenal panel 10/20/19 Range/Units 04:50 Sodium 143 (137-145) mmol/L Potassium 4.1 (3.6-5.0) mmol/L Chloride 108.1 H (98-107) mmol/L Carbon Dioxide 22 (22-30) mmol/L BUN 17 (9-20) mg/dL Creatinine 0.4 L (0.8-1.5) mg/dL Glucose 134 H (75-100) mg/dL Calcium 7.1 L (8.4-10.2) mg/dL
[2019-10-20] MEDS: FLUCONAZOLE 400 MG 200 ML IV SCH (10:23)
[2019-10-20] MEDS: PANTOPRAZOLE 40 MG INJ IV SCH (10:23)
[2019-10-20] MEDS ORDERED: LIPASE 10,500/PROTEASE 25,000/AMYLASE 43,750 (UNITS) DR CAP FEEDTUBE PRN (10:37)
[2019-10-20] MEDS ORDERED: SODIUM BICARBONATE 325 MG TAB FEEDTUBE PRN (10:37)
[2019-10-20] MEDS ORDERED: SIMPLE SYRUP 15 ML FEEDTUBE PRN ×2 (10:37)
[2019-10-20 11:35] LABS: Abnormal Protein Band 1 SEE SCANNED RESULT; Abnormal Protein Band 2 SEE SCANNED RESULT; Albumin SEE SCANNED RESULT; Creatinine, Random Urine SEE SCANNED RESULT; Gamma Globulin SEE SCANNED RESULT; Interpretation SEE SCANNED RESULT; Protein/Creatinine Ratio SEE SCANNED RESULT
[2019-10-20] MEDS ORDERED: MAGNESIUM SULFATE 2 GM/50 ML BAG IV ONE (13:35)
--- NOTE | 2019-10-20 13:35 | Progress Note ---
Assessment and Plan 54 y/o male with anastomic leak 10/20: Will hold on weaning until abdomen is closed, especially knowing mental status is good. Will focus on pain control. Replace electrolytes. Appreciate Surgery recs and detail. Follow up any new recs from cards. 1. CV-tachycardia but stable BP. Was ok on Amio and Dilt but when BP started dropping, we stopped the dilt. Now rate back up and not controlled on 5. Spoke to nursing about increasing to 10. Continue fluid boluses for BP as needed. Trying not to start pressors if possible. 2. Pulm-stable on Vent. FiO2 down to 45% prior to go to OR. CXR shows right lower lobe airspace disease (10/15). Light green substance in ET tube has s topped. Continue current vent management. Wean once all surgeries are done. 3. GI-Going back to OR again on Tuesday for Washout. 4. Renal- Renal function and output have improved. Will continue to monitor. Had a large volume out that we are actively replacing. This may have added to hypotension this am. 5. Neuro- on rounds, per nursing, patient did not wake up during sedation vacation. Stopping all sedation now. If not able to control rate with drugs, could be related to pain. Spoke to nursing to use PRN pushes to see if this helps HR as well. If patient's mental state does not improve post all surgeries, may need CT head, EEG and neurology evaluation. 6. ID-continues to spike temps. ID following. Defer to them for repeat cultures. Blood has been negative. 7. Electrolytes-Reviewed renal note from yesterday. Overall prognosis is guarded. Will continue to follow. CCT 31 minutes. Subjective Date of service: 10/20/19 Principal diagnosis: acute renal failure Interval history: No acute events. Spoke with surgery yesterday post op regarding current plans. Will likely go back for final closure either tomorrow or Tuesday. Pulm status stable. Objective Vital Signs - 12hr 10/20/19 10/20/19 10/20/19 02:00 02:01 02:31 Temperature Pulse Rate 89 83 Pulse Rate [ 83 Anterior Left Throughout] Pulse Rate [ From Monitor] Respiratory 21 17 Rate Respiratory Rate [Abdomen] Respiratory 19 Rate [Anterior Left Throughout ] Blood Pressure 128/52 128/52 O2 Sat by Pulse 94 97 Oximetry 10/20/19 10/20/19 10/20/19 03:01 03:30 03:31 Temperature 99.0 F Pulse Rate 82 83 Pulse Rate [ Anterior Left Throughout] Pulse Rate [ From Monitor] Respiratory 19 17 Rate Respiratory Rate [Abdomen] Respiratory Rate [Anterior Left Throughout ] Blood Pressure 117/49 117/49 O2 Sat by Pulse 98 98 Oximetry 10/20/19 10/20/19 10/20/19 04:00 04:01 04:31 Temperature Pulse Rate 83 82 77 Pulse Rate [ Anterior Left Throughout] Pulse Rate [ 78 From Monitor] Respiratory 21 12 17 Rate Respiratory Rate [Abdomen] Respiratory Rate [Anterior Left Throughout ] Blood Pressure 107/43 107/43 O2 Sat by Pulse 98 98 98 Oximetry 10/20/19 10/20/19 10/20/19 05:00 05:31 06:01 Temperature Pulse Rate 80 82 78 Pulse Rate [ Anterior Left Throughout] Pulse Rate [ From Monitor] Respiratory 15 18 20 Rate Respiratory Rate [Abdomen] Respiratory Rate [Anterior Left Throughout ] Blood Pressure 117/54 107/43 120/50 O2 Sat by Pulse 96 96 97 Oximetry 10/20/19 10/20/19 10/20/19 06:24 07:01 07:53 Temperature 99.0 F Pulse Rate 82 Pulse Rate [ 96 H Anterior Left Throughout] Pulse Rate [ From Monitor] Respiratory 20 Rate Respiratory Rate [Abdomen] Respiratory 28 H Rate [Anterior Left Throughout ] Blood Pressure 113/49 O2 Sat by Pulse 97 Oximetry 10/20/19 10/20/19 10/20/19 07:54 08:00 08:01 Temperature 99.3 F Pulse Rate 93 H 96 H 96 H Pulse Rate [ Anterior Left Throughout] Pulse Rate [ 86 From Monitor] Respiratory 22 24 Rate Respiratory Rate [Abdomen] Respiratory Rate [Anterior Left Throughout ] Blood Pressure 113/49 144/62 O2 Sat by Pulse 93 96 93 Oximetry 10/20/19 10/20/19 10/20/19 09:01 10:00 10:01 Temperature Pulse Rate 95 H 102 H Pulse Rate [ Anterior Left Throughout] Pulse Rate [ From Monitor] Respiratory 22 27 H Rate Respiratory 26 H Rate [Abdomen] Respiratory Rate [Anterior Left Throughout ] Blood Pressure 132/61 113/56 O2 Sat by Pulse 93 91 Oximetry 10/20/19 10/20/19 10/20/19 11:01 11:41 12:01 Temperature Pulse Rate 99 H 94 H 96 H Pulse Rate [ Anterior Left Throughout] Pulse Rate [ From Monitor] Respiratory 23 22 Rate Respiratory Rate [Abdomen] Respiratory Rate [Anterior Left Throughout ] Blood Pressure 119/62 119/62 123/66 O2 Sat by Pulse 92 93 92 Oximetry 10/20/19 12:54 Temperature Pulse Rate 91 H Pulse Rate [ Anterior Left Throughout] Pulse Rate [ From Monitor] Respiratory Rate Respiratory Rate [Abdomen] Respiratory Rate [Anterior Left Throughout ] Blood Pressure 123/66 O2 Sat by Pulse Oximetry Constitutional: alert Eyes: non-icteric ENT: oropharynx moist Neck: supple Effort: normal Ascultation: Bilateral: diminished breath sounds Cardiovascular: regular rate and rhythm Gastrointestinal: tender Integumentary: normal Extremities: no cyanosis Neurologic: normal mental status, non-focal exam Psychiatric: mood appropriate, affect normal CBC and BMP: 10/17/19 04:08 10/20/19 04:50 ABG, PT/INR, D-dimer: ABG POC ABG pH 7.310 (7.35-7.45) L 10/17/19 05:41 ABG pH 7.456 pH Units (7.350-7.450) H 10/19/19 05:00 POC ABG pCO2 52.8 (35-45) H 10/17/19 05:41 ABG pCO2 36.4 mm Hg 10/19/19 05:00 POC ABG pO2 70 (80-105) L 10/17/19 05:41 ABG pO2 78.8 mm Hg (80.0-90.0) L 10/19/19 05:00 POC ABG HCO3 26.6 (22-26 mml/L) 10/17/19 05:41 POC ABG Total CO2 28 (23-27mmol/L) 10/17/19 05:41 POC ABG O2 Sat 92 10/17/19 05:41 ABG O2 Saturation 97.0 % (95.0-99.0) 10/19/19 05:00 Abnormal lab findings: Abnormal Labs 10/06/19 10/06/19 10/07/19 05:36 05:36 05:54 WBC 21.8 H 21.5 H RBC 3.55 L Hgb 10.9 L Hct 32.7 L RDW Plt Count Seg Neuts % (Manual) 91.0 H Lymphocytes % (Manual) 2.0 L Seg Neutrophils # Man 19.8 H Lymphocytes # (Manual) 0.4 L Monocytes # (Manual) 1.1 H POC ABG pH ABG pH POC ABG pCO2 POC ABG pO2 ABG pO2 ABG HCO3 ABG Base Excess ABG Hemoglobin Oxyhemoglobin Sodium 135 L Potassium Chloride 95.9 L Carbon Dioxide BUN Creatinine 0.7 L Glucose POC Glucose Calcium Phosphorus Magnesium Direct Bilirubin AST C-Reactive Protein Serum Total Protein Total Protein 5.7 L Albumin 2.5 L Prealbumin Xlcos-7-Wfbnznmqs Qdchk-4-Xmosmpojd Gamma Globulins PEP Interpretation Urine Creatinine Urine Total Protein Digoxin Crossmatch 10/07/19 10/09/19 10/09/19 05:54 10:52 10:52 WBC 16.6 H RBC Hgb Hct RDW Plt Count 498 H Seg Neuts % (Manual) 93.0 H Lymphocytes % (Manual) 5.0 L Seg Neutrophils # Man 15.4 H Lymphocytes # (Manual) 0.8 L Monocytes # (Manual) POC ABG pH ABG pH POC ABG pCO2 POC ABG pO2 ABG pO2 ABG HCO3 ABG Base Excess ABG Hemoglobin Oxyhemoglobin Sodium Potassium Chloride 97.9 L Carbon Dioxide 20 L D BUN 23 H Creatinine 1.7 H D Glucose 109 H POC Glucose Calcium 8.1 L Phosphorus Magnesium Direct Bilirubin AST C-Reactive Protein Serum Total Protein Total Protein Albumin Prealbumin Mktvc-1-Yxqbcglet Lampk-3-Lzsmnhcus Gamma Globulins PEP Interpretation Urine Creatinine Urine Total Protein Digoxin Crossmatch 10/09/19 10/10/19 10/10/19 17:23 05:30 05:30 WBC 14.6 H RBC Hgb 11.1 L Hct 33.5 L RDW Plt Count 527 H Seg Neuts % (Manual) Lymphocytes % (Manual) Seg Neutrophils # Man Lymphocytes # (Manual) Monocytes # (Manual) POC ABG pH ABG pH POC ABG pCO2 POC ABG pO2 ABG pO2 ABG HCO3 ABG Base Excess ABG Hemoglobin Oxyhemoglobin Sodium 130 L D Potassium 5.1 H Chloride 90.0 L 91.0 L Carbon Dioxide 20 L 20 L BUN 27 H 35 H Creatinine 1.9 H 2.0 H Glucose 104 H POC Glucose Calcium Phosphorus Magnesium Direct Bilirubin AST C-Reactive Protein Serum Total Protein Total Protein Albumin Prealbumin Szfwr-5-Xwuajrdao Mddxh-3-Bgzhspebj Gamma Globulins PEP Interpretation Urine Creatinine Urine Total Protein Digoxin Crossmatch 10/10/19 10/10/19 10/11/19 08:33 08:44 05:41 WBC 13.2 H RBC Hgb 11.3 L Hct 33.8 L RDW 15.3 H Plt Count 543 H Seg Neuts % (Manual) Lymphocytes % (Manual) Seg Neutrophils # Man Lymphocytes # (Manual) Monocytes # (Manual) POC ABG pH ABG pH POC ABG pCO2 POC ABG pO2 ABG pO2 ABG HCO3 ABG Base Excess ABG Hemoglobin Oxyhemoglobin Sodium Potassium Chloride Carbon Dioxide BUN Creatinine Glucose 113 H POC Glucose 117 H Calcium Phosphorus Magnesium Direct Bilirubin AST C-Reactive Protein Serum Total Protein Total Protein Albumin Prealbumin Dcpqs-5-Veihgusmj Qumvk-8-Hrpvxzrme Gamma Globulins PEP Interpretation Urine Creatinine Urine Total Protein Digoxin Crossmatch 10/11/19 10/11/19 10/11/19 05:41 06:23 06:23 WBC RBC Hgb Hct RDW Plt Count Seg Neuts % (Manual) Lymphocytes % (Manual) Seg Neutrophils # Man Lymphocytes # (Manual) Monocytes # (Manual) POC ABG pH ABG pH POC ABG pCO2 POC ABG pO2 ABG pO2 ABG HCO3 ABG Base Excess ABG Hemoglobin Oxyhemoglobin Sodium 134 L Potassium Chloride 96.3 L Carbon Dioxide BUN 37 H Creatinine Glucose 58 L POC Glucose Calcium Phosphorus 4.90 H Magnesium Direct Bilirubin AST C-Reactive Protein Serum Total Protein Total Protein Albumin Prealbumin Wepvd-9-Xllldpobw Evtey-0-Hvcaittko Gamma Globulins PEP Interpretation Urine Creatinine 118.2 H 116.8 H Urine Total Protein 105 H 104 H Digoxin Crossmatch 10/11/19 10/12/19 10/12/19 09:00 06:09 06:09 WBC 13.8 H RBC 3.39 L Hgb 10.2 L Hct 30.9 L RDW 15.5 H Plt Count 459 H Seg Neuts % (Manual) Lymphocytes % (Manual) Seg Neutrophils # Man Lymphocytes # (Manual) Monocytes # (Manual) POC ABG pH ABG pH POC ABG pCO2 POC ABG pO2 ABG pO2 ABG HCO3 ABG Base Excess ABG Hemoglobin Oxyhemoglobin Sodium 131 L Potassium Chloride 96.2 L Carbon Dioxide 21 L BUN 43 H Creatinine Glucose 72 L POC Glucose Calcium Phosphorus Magnesium Direct Bilirubin AST C-Reactive Protein Serum Total Protein 5.2 L Total Protein Albumin 1.9 L Prealbumin Ywhnl-8-Jcnonubwp 0.9 H Lhwli-9-Ymqjyrtvx 1.0 H Gamma Globulins 0.7 L PEP Interpretation see below H Urine Creatinine Urine Total Protein Digoxin Crossmatch 10/12/19 10/12/19 10/12/19 08:20 09:30 09:30 WBC RBC Hgb Hct RDW Plt Count Seg Neuts % (Manual) Lymphocytes % (Manual) Seg Neutrophils # Man Lymphocytes # (Manual) Monocytes # (Manual) POC ABG pH ABG pH POC ABG pCO2 POC ABG pO2 63 L ABG pO2 ABG HCO3 ABG Base Excess ABG Hemoglobin Oxyhemoglobin Sodium Potassium Chloride Carbon Dioxide BUN Creatinine Glucose POC Glucose Calcium Phosphorus Magnesium 2.50 H Direct Bilirubin 0.3 H AST C-Reactive Protein Serum Total Protein Total Protein 5.1 L Albumin 2.2 L Prealbumin Etgvs-4-Hmyzfyisg Ejuql-3-Brvacfxqe Gamma Globulins PEP Interpretation Urine Creatinine Urine Total Protein Digoxin Crossmatch 10/13/19 10/13/19 10/13/19 04:20 04:20 13:20 WBC 15.7 H RBC 3.64 L Hgb 10.9 L Hct 33.1 L RDW 15.8 H Plt Count 488 H Seg Neuts % (Manual) Lymphocytes % (Manual) Seg Neutrophils # Man Lymphocytes # (Manual) Monocytes # (Manual) POC ABG pH ABG pH POC ABG pCO2 POC ABG pO2 ABG pO2 ABG HCO3 ABG Base Excess ABG Hemoglobin Oxyhemoglobin Sodium Potassium Chloride Carbon Dioxide BUN 28 H Creatinine Glucose POC Glucose Calcium Phosphorus Magnesium Direct Bilirubin AST C-Reactive Protein Serum Total Protein Total Protein Albumin Prealbumin Kcosu-6-Vjcknthai Ohmvl-0-Rbbnxoyba Gamma Globulins PEP Interpretation Urine Creatinine Urine Total Protein Digoxin Crossmatch See Detail 10/13/19 10/13/19 10/14/19 18:24 20:05 04:47 WBC 24.2 H RBC Hgb 10.9 L Hct 34.2 L RDW 17.0 H Plt Count 442 H Seg Neuts % (Manual) Lymphocytes % (Manual) Seg Neutrophils # Man Lymphocytes # (Manual) Monocytes # (Manual) POC ABG pH ABG pH 7.180 L* 7.278 L POC ABG pCO2 POC ABG pO2 ABG pO2 130.7 H ABG HCO3 ABG Base Excess -6.5 L -6.5 L ABG Hemoglobin 12.2 L 12.3 L Oxyhemoglobin 92.9 L Sodium Potassium Chloride Carbon Dioxide BUN Creatinine Glucose POC Glucose Calcium Phosphorus Magnesium Direct Bilirubin AST C-Reactive Protein Serum Total Protein Total Protein Albumin Prealbumin Xjgzl-2-Avuwgrcwt Hmppy-7-Drlfznbdm Gamma Globulins PEP Interpretation Urine Creatinine Urine Total Protein Digoxin Crossmatch 10/14/19 10/14/19 10/14/19 04:47 05:40 10:14 WBC RBC Hgb Hct RDW Plt Count Seg Neuts % (Manual) Lymphocytes % (Manual) Seg Neutrophils # Man Lymphocytes # (Manual) Monocytes # (Manual) POC ABG pH ABG pH POC ABG pCO2 POC ABG pO2 ABG pO2 76.3 L ABG HCO3 19.1 L ABG Base Excess -5.8 L ABG Hemoglobin 10.9 L Oxyhemoglobin 93.4 L Sodium Potassium 5.1 H D Chloride 109.2 H Carbon Dioxide 17 L BUN 38 H Creatinine 1.8 H D Glucose 104 H POC Glucose Calcium 7.4 L Phosphorus 5.60 H Magnesium Direct Bilirubin AST C-Reactive Protein Serum Total Protein Total Protein Albumin Prealbumin Zovfi-8-Lyixjndlm Djhcz-9-Rffaznnqy Gamma Globulins PEP Interpretation Urine Creatinine Urine Total Protein Digoxin Crossmatch 10/14/19 10/15/19 10/15/19 23:46 04:32 04:32 WBC 15.5 H RBC 2.89 L Hgb 8.8 L Hct 27.3 L D RDW 16.6 H Plt Count Seg Neuts % (Manual) Lymphocytes % (Manual) Seg Neutrophils # Man Lymphocytes # (Manual) Monocytes # (Manual) POC ABG pH ABG pH POC ABG pCO2 POC ABG pO2 ABG pO2 ABG HCO3 ABG Base Excess ABG Hemoglobin Oxyhemoglobin Sodium 147 H Potassium Chloride 114.0 H Carbon Dioxide 19 L BUN 42 H Creatinine Glucose 112 H POC Glucose 113 H Calcium 7.3 L Phosphorus Magnesium Direct Bilirubin AST 72 H C-Reactive Protein 30.60 H Serum Total Protein Total Protein 4.0 L D Albumin 1.7 L Prealbumin 0.030 L Evsho-9-Ynsoiwfdp Hofcj-2-Lqdutumff Gamma Globulins PEP Interpretation Urine Creatinine Urine Total Protein Digoxin Crossmatch 10/15/19 10/15/19 10/15/19 05:30 12:08 17:23 WBC RBC Hgb Hct RDW Plt Count Seg Neuts % (Manual) Lymphocytes % (Manual) Seg Neutrophils # Man Lymphocytes # (Manual) Monocytes # (Manual) POC ABG pH ABG pH 7.296 L POC ABG pCO2 POC ABG pO2 ABG pO2 114.7 H ABG HCO3 ABG Base Excess -3.7 L ABG Hemoglobin 8.9 L Oxyhemoglobin Sodium Potassium Chloride Carbon Dioxide BUN Creatinine Glucose POC Glucose 106 H 106 H Calcium Phosphorus Magnesium Direct Bilirubin AST C-Reactive Protein Serum Total Protein Total Protein Albumin Prealbumin [place]-7-Fvttuewwm Jnnwp-4-Ufhquifzs Gamma Globulins PEP Interpretation Urine Creatinine Urine Total Protein Digoxin Crossmatch 10/16/19 10/16/19 10/16/19 00:07 04:44 05:24 WBC RBC Hgb Hct RDW Plt Count Seg Neuts % (Manual) Lymphocytes % (Manual) Seg Neutrophils # Man Lymphocytes # (Manual) Monocytes # (Manual) POC ABG pH ABG pH POC ABG pCO2 POC ABG pO2 ABG pO2 ABG HCO3 ABG Base Excess ABG Hemoglobin Oxyhemoglobin Sodium 150 H Potassium Chloride 115.8 H Carbon Dioxide BUN 35 H Creatinine Glucose 129 H POC Glucose 119 H 129 H Calcium 7.3 L Phosphorus 1.80 L D Magnesium Direct Bilirubin AST C-Reactive Protein Serum Total Protein Total Protein Albumin Prealbumin Rhzix-4-Hhcjvadud Iochn-2-Skebhoeqb Gamma Globulins PEP Interpretation Urine Creatinine Urine Total Protein Digoxin Crossmatch 10/16/19 10/16/19 10/16/19 06:53 09:20 11:58 WBC 14.6 H RBC 2.70 L Hgb 8.1 L Hct 25.2 L RDW 16.7 H Plt Count Seg Neuts % (Manual) 79.0 H Lymphocytes % (Manual) 4.0 L Seg Neutrophils # Man 11.5 H Lymphocytes # (Manual) 0.6 L Monocytes # (Manual) POC ABG pH ABG pH POC ABG pCO2 47.0 H POC ABG pO2 ABG pO2 ABG HCO3 ABG Base Excess ABG Hemoglobin Oxyhemoglobin Sodium Potassium Chloride Carbon Dioxide BUN Creatinine Glucose POC Glucose Calcium Phosphorus Magnesium Direct Bilirubin AST C-Reactive Protein Serum Total Protein Total Protein Albumin Prealbumin Nnnrw-2-Uqhsrpobi Pevtu-1-Pjgsmkoct Gamma Globulins PEP Interpretation Urine Creatinine Urine Total Protein Digoxin Crossmatch See Detail 10/16/19 10/16/1919 15:23 17:50 23:58 WBC RBC Hgb Hct RDW Plt Count Seg Neuts % (Manual) Lymphocytes % (Manual) Seg Neutrophils # Man Lymphocytes # (Manual) Monocytes # (Manual) POC ABG pH ABG pH POC ABG pCO2 POC ABG pO2 ABG pO2 ABG HCO3 ABG Base Excess ABG Hemoglobin Oxyhemoglobin Sodium Potassium Chloride Carbon Dioxide BUN Creatinine Glucose POC Glucose 221 H 201 H 179 H Calcium Phosphorus Magnesium Direct Bilirubin AST C-Reactive Protein Serum Total Protein Total Protein Albumin Prealbumin Ddjxg-7-Koqukyews Orgur-4-Ksqlvmpmk Gamma Globulins PEP Interpretation Urine Creatinine Urine Total Protein Digoxin Crossmatch 10/17/19 10/17/19 10/17/19 04:08 04:08 05:41 WBC 22.3 H RBC 3.35 L Hgb 10.0 L Hct 31.2 L D RDW 16.1 H Plt Count Seg Neuts % (Manual) Lymphocytes % (Manual) Seg Neutrophils # Man Lymphocytes # (Manual) Monocytes # (Manual) POC ABG pH 7.310 L ABG pH POC ABG pCO2 52.8 H POC ABG pO2 70 L ABG pO2 ABG HCO3 ABG Base Excess ABG Hemoglobin Oxyhemoglobin Sodium 147 H Potassium Chloride 114.9 H Carbon Dioxide BUN 36 H Creatinine Glucose 165 H POC Glucose Calcium 6.9 L Phosphorus 2.20 L D Magnesium Direct Bilirubin AST C-Reactive Protein Serum Total Protein Total Protein Albumin Prealbumin Fgpdi-4-Geoxvkzyo Uxzda-9-Gagondlcu Gamma Globulins PEP Interpretation Urine Creatinine Urine Total Protein Digoxin Crossmatch 10/17/19 10/17/19 10/17/19 05:42 11:33 18:17 WBC RBC Hgb Hct RDW Plt Count Seg Neuts % (Manual) Lymphocytes % (Manual) Seg Neutrophils # Man Lymphocytes # (Manual) Monocytes # (Manual) POC ABG pH ABG pH POC ABG pCO2 POC ABG pO2 ABG pO2 ABG HCO3 ABG Base Excess ABG Hemoglobin Oxyhemoglobin Sodium Potassium Chloride Carbon Dioxide BUN Creatinine Glucose POC Glucose 149 H 154 H 163 H Calcium Phosphorus Magnesium Direct Bilirubin AST C-Reactive Protein Serum Total Protein Total Protein Albumin Prealbumin Fsxmk-1-Monfhllqr Mbska-4-Rbavssdqb Gamma Globulins PEP Interpretation Urine Creatinine Urine Total Protein Digoxin Crossmatch 10/17/19 10/18/19 10/18/19 23:34 03:29 04:50 WBC RBC Hgb Hct RDW Plt Count Seg Neuts % (Manual) Lymphocytes % (Manual) Seg Neutrophils # Man Lymphocytes # (Manual) Monocytes # (Manual) POC ABG pH ABG pH POC ABG pCO2 POC ABG pO2 ABG pO2 78.8 L ABG HCO3 ABG Base Excess ABG Hemoglobin 8.8 L Oxyhemoglobin Sodium Potassium Chloride 111.8 H Carbon Dioxide BUN 27 H Creatinine 0.6 L Glucose 140 H POC Glucose 135 H Calcium 7.1 L Phosphorus 1.80 L Magnesium Direct Bilirubin AST C-Reactive Protein Serum Total Protein Total Protein Albumin Prealbumin Tfdxx-6-Mbdfebeug Ihkcr-1-Emjzbjxbq Gamma Globulins PEP Interpretation Urine Creatinine Urine Total Protein Digoxin Crossmatch 10/18/19 10/18/19 10/18/19 05:45 11:19 18:26 WBC RBC Hgb Hct RDW Plt Count Seg Neuts % (Manual) Lymphocytes % (Manual) Seg Neutrophils # Man Lymphocytes # (Manual) Monocytes # (Manual) POC ABG pH ABG pH POC ABG pCO2 POC ABG pO2 ABG pO2 ABG HCO3 ABG Base Excess ABG Hemoglobin Oxyhemoglobin Sodium Potassium Chloride Carbon Dioxide BUN Creatinine Glucose POC Glucose 145 H 152 H 125 H Calcium Phosphorus Magnesium Direct Bilirubin AST C-Reactive Protein Serum Total Protein Total Protein Albumin Prealbumin Otlxp-6-Ehvrapztr Rtivn-3-Alqozjklc Gamma Globulins PEP Interpretation Urine Creatinine Urine Total Protein Digoxin Crossmatch 10/18/19 10/19/19 10/19/19 23:27 04:21 04:21 WBC RBC Hgb Hct RDW Plt Count Seg Neuts % (Manual) Lymphocytes % (Manual) Seg Neutrophils # Man Lymphocytes # (Manual) Monocytes # (Manual) POC ABG pH ABG pH POC ABG pCO2 POC ABG pO2 ABG pO2 ABG HCO3 ABG Base Excess ABG Hemoglobin Oxyhemoglobin Sodium Potassium Chloride 108.4 H Carbon Dioxide BUN 22 H Creatinine 0.5 L Glucose 123 H POC Glucose 127 H Calcium 7.4 L Phosphorus 1.80 L Magnesium Direct Bilirubin AST C-Reactive Protein Serum Total Protein Total Protein Albumin Prealbumin Ffdwn-3-Fkwjbckhf Qobgg-2-Gzgnzxugz Gamma Globulins PEP Interpretation Urine Creatinine Urine Total Protein Digoxin 0.7 L Crossmatch 10/19/19 10/19/19 10/19/19 05:00 05:35 11:26 WBC RBC Hgb Hct RDW Plt Count Seg Neuts % (Manual) Lymphocytes % (Manual) Seg Neutrophils # Man Lymphocytes # (Manual) Monocytes # (Manual) POC ABG pH ABG pH 7.456 H POC ABG pCO2 POC ABG pO2 ABG pO2 78.8 L ABG HCO3 ABG Base Excess ABG Hemoglobin 5.6 L Oxyhemoglobin Sodium Potassium Chloride Carbon Dioxide BUN Creatinine Glucose POC Glucose 124 H 111 H Calcium Phosphorus Magnesium Direct Bilirubin AST C-Reactive Protein Serum Total Protein Total Protein Albumin Prealbumin Zylcp-4-Xvoibcpsw Ioxap-1-Hcepsfkdv Gamma Globulins PEP Interpretation Urine Creatinine Urine Total Protein Digoxin Crossmatch 10/19/19 10/20/19 10/20/19 23:23 04:50 05:17 WBC RBC Hgb Hct RDW Plt Count Seg Neuts % (Manual) Lymphocytes % (Manual) Seg Neutrophils # Man Lymphocytes # (Manual) Monocytes # (Manual) POC ABG pH ABG pH POC ABG pCO2 POC ABG pO2 ABG pO2 ABG HCO3 ABG Base Excess ABG Hemoglobin Oxyhemoglobin Sodium Potassium Chloride 108.1 H Carbon Dioxide BUN Creatinine 0.4 L Glucose 134 H POC Glucose 129 H 123 H Calcium 7.1 L Phosphorus Magnesium Direct Bilirubin AST C-Reactive Protein Serum Total Protein Total Protein Albumin Prealbumin Vteog-8-Vvwamxgvp Uzpld-4-Adybveilu Gamma Globulins PEP Interpretation Urine Creatinine Urine Total Protein Digoxin Crossmatch 10/20/19 11:40 WBC RBC Hgb Hct RDW Plt Count Seg Neuts % (Manual) Lymphocytes % (Manual) Seg Neutrophils # Man Lymphocytes # (Manual) Monocytes # (Manual) POC ABG pH ABG pH POC ABG pCO2 POC ABG pO2 ABG pO2 ABG HCO3 ABG Base Excess ABG Hemoglobin Oxyhemoglobin Sodium Potassium Chloride Carbon Dioxide BUN Creatinine Glucose POC Glucose 139 H Calcium Phosphorus Magnesium Direct Bilirubin AST C-Reactive Protein Serum Total Protein Total Protein Albumin Prealbumin [place]juy-2-Flukkwijt Ctczb-7-Ubaarpmlh Gamma Globulins PEP Interpretation Urine Creatinine Urine Total Protein Digoxin Crossmatch
--- NOTE | 2019-10-20 15:15 | Progress Note ---
Assessment and Plan Assessment and plan: 54 yo male with hx of CAD, DE, emphysema, COPD who presented with prolonged complicated course as a result of a bowel perforation. On admission, it was reported that a portion of his intestines protruded through his wound after severe cough. He has had multiple surgeries since admission. Dehiscence of closure of fascia * Went to OR for ex lap with closure of abdominal wall and wound vac placement ( 10/05) * Continued to decline with possible Air vs fluid, 10/10/19 IR went in and placed two drains, Noted to have possible fecal material * Returned to the OR 10/13/19 due to concern for intra-abdominal infection and was found to have with heavy contamination of abdomen patent had disruption of bowel anastomosis, abdominal washout, abthera placement and colon stapled transection and left bowel enterotomy from anastomosis completely open * Returned to OR on 10/16/19 for abdominal washout, Partial Omentectomy, Partial Colectomy, Colostomy Creation and AbThera Placement * cont wound care Severe sepsis secondary to bowel leak at anastomosis site/PNA -cont IV zosyn and fluconazole -surgical culture positive for enterococcus duras -blood cultures neg Acute Respiratory failure with hypoxia -on MV support -failed weaning trial on 10/19/19 -Hand Polisher following Left lower lobe pneumonia -Continue IV antibiotic -CTA chest showed left lower lobe consolidation with pleural effusion GUILLERMO on CRF -probably ATN due to sepsis -Improving, will monitor -SPEP and UPEP pending -No hydronephrosis on CT -[place] in place, monitor I/O's Severe Metabolic acidosis -Improved Acute Toxic Metabolic Encephalopathy/Delirium Tremens -Started on CIWA protocol due to hx of ETOH abuse, 6packs a day -Head CT scan negative for acute findings Hyperkalemia -Resolved Hyponatremia, now hypernatremia -Improved -IVF d/francoise Acute blood loss anemia -H/H stable -Continue to monitor H&H and transfuse for hb<7 SVT, Atrial fib/flutter with RVR -treated with adenosine x1 -on IV amiodarone drip and PRN IV Lopressor. Off IV digoxin and cardizem drip -HR currently controlled -Cardiology following Hypotension -Off esmolol drip -s/p IV fluid boluses, BP stable Hypophosphatemia -will monitor level Hx of Hypertension -Stable Hyperlipidemia -stable Atypical chest pain -probably secondary to pneumonitis -troponin levels neg Hx of DE/CAD -s/p PCI of the circumflex and second vessel POBA of the distal LAD occlusion. Left ventricle fraction of 45-50%. Morbid obesity with BMI of 45.4 -Lifestyle modification recommended COPD -Stable -cont neb tx Moderate Protein calorie malnutrition secondary to surgery -On TPN -Nutrition following Tobacco abuse -Cessation recommended Morbid obesity with BMI of 45.4 -Lifestyle modification recommended Disp: Very poor prognosis. d/c per clinical course Critical time spent: 35 mins History Interval history: Patient is intubated and nonverbal. No overnight issues reported. Per his nurse, pt is now able to follow some commands. He failed weaning trial yesterday Hospitalist Physical - Constitutional Vitals: Temp Pulse Resp BP Pulse Ox 99.1 F 91 H 22 123/66 92 10/20/19 12:00 10/20/19 12:54 10/20/19 12:01 10/20/19 12:54 10/20/19 12:01 General appearance: Present: no acute distress, obese - EENT Eyes: Present: PERRL ENT: other (pt is intubated ) - Neck Neck: Present: supple - Respiratory Respiratory effort: normal Respiratory: bilateral: diminished, wheezing - Cardiovascular Rhythm: regular Heart Sounds: Present: S1 & S2 - Extremities Extremity abnormal: edema (in BLE, BUE) - Abdominal General gastrointestinal: soft, hypoactive bowel sounds, other (surgical wounds clean. drain and colostomy bag noted) - Psychiatric Psychiatric: other (unable to assess due to AMS) - Neurologic Neurologic: moves all extremities Results - Labs CBC & Chem 7: 10/17/19 04:08 10/20/19 04:50 Labs: Laboratory Last Values WBC 22.3 K/mm3 (4.5-11.0) H 10/17/19 04:08 RBC 3.35 M/mm3 (3.65-5.03) L 10/17/19 04:08 Hgb 10.0 gm/dl (11.8-15.2) L 10/17/19 04:08 Hct 31.2 % (35.5-45.6) L D 10/17/19 04:08 MCV 93 fl (84-94) 10/17/19 04:08 MCH 30 pg (28-32) 10/17/19 04:08 MCHC 32 % (32-34) 10/17/19 04:08 RDW 16.1 % (13.2-15.2) H 10/17/19 04:08 Plt Count 188 K/mm3 (140-440) 10/17/19 04:08 Add Manual Diff Complete 10/16/19 09:20 Total Counted 100 10/16/19 09:20 Seg Neutrophils % Saturator Tender 10/09/19 10:52 Seg Neuts % (Manual) 79.0 % (40.0-70.0) H 10/16/19 09:20 Band Neutrophils % 12.0 % 10/16/19 09:20 Lymphocytes % (Manual) 4.0 % (13.4-35.0) L 10/16/19 09:20 Reactive Lymphs % (Man) 0 % 10/16/19 09:20 Monocytes % (Manual) 2.0 % (0.0-7.3) 10/16/19 09:20 Eosinophils % (Manual) 0 % (0.0-4.3) 10/16/19 09:20 Basophils % (Manual) 0 % (0.0-1.8) 10/16/19 09:20 Metamyelocytes % 2.0 % 10/16/19 09:20 Myelocytes % 1.0 % 10/16/19 09:20 Promyelocytes % 0 % 10/16/19 09:20 Blast Cells % 0 % 10/16/19 09:20 Nucleated RBC % Not Reportable 10/16/19 09:20 Seg Neutrophils # Man 11.5 K/mm3 (1.8-7.7) H 10/16/19 09:20 Band Neutrophils # 1.8 K/mm3 10/16/19 09:20 Lymphocytes # (Manual) 0.6 K/mm3 (1.2-5.4) L 10/16/19 09:20 Abs React Lymphs (Man) 0.0 K/mm3 10/16/19 09:20 Monocytes # (Manual) 0.3 K/mm3 (0.0-0.8) 10/16/19 09:20 Eosinophils # (Manual) 0.0 K/mm3 (0.0-0.4) 10/16/19 09:20 Basophils # (Manual) 0.0 K/mm3 (0.0-0.1) 10/16/19 09:20 Metamyelocytes # 0.3 K/mm3 10/16/19 09:20 Myelocytes # 0.1 K/mm3 10/16/19 09:20 Promyelocytes # 0.0 K/mm3 10/16/19 09:20 Blast Cells # 0.0 K/mm3 10/16/19 09:20 WBC Morphology Not Reportable 10/16/19 09:20 Hypersegmented Neuts Not Reportable 10/16/19 09:20 Hyposegmented Neuts Not Reportable 10/16/19 09:20 Hypogranular Neuts Not Reportable 10/16/19 09:20 Smudge Cells Not Reportable 10/16/19 09:20 Toxic Granulation Not Reportable 10/16/19 09:20 Toxic Vacuolation Not Reportable 10/16/19 09:20 Dohle Bodies Not Reportable 10/16/19 09:20 Pelger-Huet Anomaly Not Reportable 10/16/19 09:20 Andres Rods Not Reportable 10/16/19 09:20 Platelet Estimate Consistent w auto 10/16/19 09:20 Clumped Platelets Not Reportable 10/16/19 09:20 Plt Clumps, EDTA Not Reportable 10/16/19 09:20 Large Platelets Not Reportable 10/16/19 09:20 Giant Platelets Not Reportable 10/16/19 09:20 Platelet Satelliting Not Reportable 10/16/19 09:20 Plt Morphology Comment Not Reportable 10/16/19 09:20 RBC Morphology Not Reportable 10/16/19 09:20 Dimorphic RBCs Not Reportable 10/16/19 09:20 Polychromasia Few 10/16/19 09:20 Hypochromasia Few 10/16/19 09:20 Poikilocytosis Not Reportable 10/16/19 09:20 Anisocytosis Not Reportable 10/16/19 09:20 Microcytosis Not Reportable 10/16/19 09:20 Macrocytosis Not Reportable 10/16/19 09:20 Spherocytes Not Reportable 10/16/19 09:20 Pappenheimer Bodies Not Reportable 10/16/19 09:20 Sickle Cells Not Reportable 10/16/19 09:20 Target Cells Few 10/16/19 09:20 Tear Drop Cells Not Reportable 10/16/19 09:20 Ovalocytes Not Reportable 10/16/19 09:20 Helmet Cells Not Reportable 10/16/19 09:20 [place] Bodies Not Reportable 10/16/19 09:20 [place] Rings Not Reportable 10/16/19 09:20 Bishnu Cells Not Reportable 10/16/19 09:20 Bite Cells Not Reportable 10/16/19 09:20 Crenated Cell Not Reportable 10/16/19 09:20 Elliptocytes Not Reportable 10/16/19 09:20 Acanthocytes (Spur) Not Reportable 10/16/19 09:20 Rouleaux Not Reportable 10/16/19 09:20 Hemoglobin C Crystals Not Reportable 10/16/19 09:20 Schistocytes Not Reportable 10/16/19 09:20 Malaria parasites Not Reportable 10/16/19 09:20 Toni Bodies Not Reportable 10/16/19 09:20 Hem Pathologist Commnt No 10/16/19 09:20 POC ABG pH 7.310 (7.35-7.45) L 10/17/19 05:41 ABG pH 7.456 pH Units (7.350-7.450) H 10/19/19 05:00 POC ABG pCO2 52.8 (35-45) H 10/17/19 05:41 ABG pCO2 36.4 mm Hg 10/19/19 05:00 POC ABG pO2 70 (80-105) L 10/17/19 05:41 ABG pO2 78.8 mm Hg (80.0-90.0) L 10/19/19 05:00 POC ABG HCO3 26.6 (22-26 mml/L) 10/17/19 05:41 ABG HCO3 25.1 mmol/L (20.0-26.0) 10/19/19 05:00 POC ABG Total CO2 28 (23-27mmol/L) 10/17/19 05:41 POC ABG O2 Sat 92 10/17/19 05:41 ABG O2 Saturation 97.0 % (95.0-99.0) 10/19/19 05:00 ABG O2 Content 7.6 (0.0-44) 10/19/19 05:00 POC ABG Base Excess 0 ((-2) - (+3)mmol/L) 10/17/19 05:41 ABG Base Excess 1.1 mmol/L (-2.0-3.0) 10/19/19 05:00 ABG Hemoglobin 5.6 gm/dl (14.0-18.0) L 10/19/19 05:00 ABG Carboxyhemoglobin 1.3 % (0.0-5.0) 10/19/19 05:00 ABG Methemoglobin 0.5 % (0.0-1.5) 10/19/19 05:00 Oxyhemoglobin 95.2 % (95.0-99.0) 10/19/19 05:00 FiO2 35 % 10/19/19 05:00 Sodium 143 mmol/L (137-145) 10/20/19 04:50 Potassium 4.1 mmol/L (3.6-5.0) 10/20/19 04:50 Chloride 108.1 mmol/L (98-107) H 10/20/19 04:50 Carbon Dioxide 22 mmol/L (22-30) 10/20/19 04:50 Anion Gap 17 mmol/L 10/20/19 04:50 BUN 17 mg/dL (9-20) 10/20/19 04:50 Creatinine 0.4 mg/dL (0.8-1.5) L 10/20/19 04:50 Estimated GFR > 60 ml/min 10/20/19 04:50 BUN/Creatinine Ratio 43 % 10/20/19 04:50 Glucose 134 mg/dL (75-100) H 10/20/19 04:50 POC Glucose 139 (70-105) H 10/20/19 11:40 Hemoglobin A1c 5.7 % (4-6) 10/06/19 05:36 Lactic Acid 1.10 mmol/L (0.7-2.0) 10/13/19 04:20 Calcium 7.1 mg/dL (8.4-10.2) L 10/20/19 04:50 Phosphorus 2.80 mg/dL (2.5-4.5) D 10/20/19 04:50 Magnesium 1.80 mg/dL (1.7-2.3) 10/20/19 04:50 Total Bilirubin 0.30 mg/dL (0.1-1.2) 10/15/19 04:32 Direct Bilirubin 0.3 mg/dL (0-0.2) H 10/12/19 09:30 Indirect Bilirubin 0.3 mg/dL 10/12/19 09:30 AST 72 units/L (5-40) H 10/15/19 04:32 ALT 31 units/L (7-56) 10/15/19 04:32 Alkaline Phosphatase 68 units/L (35-129) 10/15/19 04:32 Ammonia 49.0 umol/L (25-60) 10/13/19 04:20 Troponin T < 0.010 ng/mL (0.00-0.029) 10/09/19 17:23 C-Reactive Protein 30.60 mg/dL (0.00-1.30) H 10/15/19 04:32 Serum Total Protein 5.2 g/dL (6.1-8.1) L 10/11/19 09:00 Total Protein 4.0 g/dL (6.3-8.2) L D 10/15/19 04:32 Albumin 1.7 g/dL (3.9-5) L 10/15/19 04:32 Albumin/Globulin Ratio 0.7 % 10/15/19 04:32 Prealbumin 0.030 g/L (0.200-0.400) L 10/15/19 04:32 [id number] See scanned result 10/11/19 Unknown [id number] See scanned result 10/11/19 Unknown Beta Globulins See scanned result 10/11/19 Unknown Gamma Globulins See scanned result 10/11/19 Unknown Abnorm Protein Band 1 see below 10/11/19 09:00 PEP Interpretation See scanned result 10/11/19 Unknown Triglycerides 114 mg/dL (2-149) 10/15/19 04:32 Urine Color Obdulia (Yellow) 10/11/19 06:23 Urine Turbidity Cloudy (Clear) 10/11/19 06:23 Urine pH 5.0 (5.0-7.0) 10/11/19 06:23 Ur Specific [place] 1.018 (1.003-1.030) 10/11/19 06:23 Urine Protein 30 mg/dl mg/dL (Negative) 10/11/19 06:23 Urine Glucose (UA) Neg mg/dL (Negative) 10/11/19 06:23 Urine Ketones Neg mg/dL (Negative) 10/11/19 06:23 Urine Blood Mod (Negative) 10/11/19 06:23 Urine Nitrite Neg (Negative) 10/11/19 06:23 Urine Bilirubin Neg (Negative) 10/11/19 06:23 Urine Urobilinogen < 2.0 mg/dL (<2.0) 10/11/19 06:23 Ur Leukocyte Esterase Neg (Negative) 10/11/19 06:23 Urine WBC (Auto) 3.0 /HPF (0.0-6.0) 10/11/19 06:23 Urine RBC (Auto) 3.0 /HPF (0.0-6.0) 10/11/19 06:23 Urine Bacteria (Auto) 1+ /HPF (Negative) 10/11/19 06:23 Urine Eosinophils None seen (None Seen) 10/11/19 06:23 Ur Random Creatinine See scanned result 10/11/19 Unknown U Random Total Protein See scanned result 10/11/19 Unknown Urine Creatinine 116.8 mg/dL (0.1-20.0) H 10/11/19 06:23 Urine Creatinine 118.2 mg/dL (0.1-20.0) H 10/11/19 06:23 Protein/Creatinin Ratio See scanned result 10/11/19 Unknown Urine Sodium 14 mmol/L 10/11/19 06:23 Urine Total Protein 104 mg/dL (5-11.8) H 10/11/19 06:23 Urine Total Protein 105 mg/dL (5-11.8) H 10/11/19 06:23 U Abnormal Prot Band 1 See scanned result 10/11/19 Unknown U Abnormal Prot Band 2 See scanned result 10/11/19 Unknown U Abnormal Prot Band 3 See scanned result 10/11/19 Unknown Digoxin 0.7 ng/mL (0.9-2.0) L 10/19/19 04:21 Blood Type A POSITIVE 10/16/19 11:58 Antibody Screen Negative 10/16/19 11:58 Crossmatch See Detail 10/16/19 11:58 Active Medications - Current Medications Current Medications: Generic Name Dose Route Start Last Admin Trade Name Freq PRN Reason Stop Dose Admin Acetaminophen 650 mg 10/15/19 10:00 10/17/19 08:18 Tylenol MA 650 mg Q4H PRN Administration Pain MILD(1-3)/Fever >100.5/ROMANO Albuterol 2.5 mg 10/05/19 21:36 Proventil IH Q4HRT PRN Shortness Of Breath Albuterol/Ipratropium 1 ampul 10/06/19 02:00 10/20/19 07:53 Duoneb *Not For Prn Use* IH Not Given Q6HRT VERÓNICA Lipase/Protease/Amylase 1 each 10/20/19 10:37 Pancremeeta Moreno 10,500 Unit FEEDTUBE PRN PRN For Clogged Feeding Tube Arformoterol Tartrate 15 mcg 10/06/19 08:30 10/20/19 07:52 Brovana Nebu IH 15 mcg Q12HRT VERÓNICA Administration Budesonide 0.5 mg 10/07/19 12:20 10/20/19 07:52 Pulmicort IH 0.5 mg Q12HRT VERÓNICA Administration Enoxaparin Sodium 40 mg 10/19/19 22:00 10/19/19 21:39 Enoxaparin SUB-Q 40 mg QDAY@2200 VERÓNICA Administration Fentanyl 50 mcg 10/14/19 02:19 10/19/19 09:27 Sublimaze IV 50 mcg Q10MIN PRN Administration ANALGESIA Fluconazole 200 mls @ 100 mls/hr 10/12/19 11:00 10/20/19 10:23 Diflucan IV 100 mls/hr Q24HR VERÓNICA Administration Protocol Fentanyl Citrate 2,000 mcg in 100 mls @ 6.85 mls/hr 10/14/19 03:00 10/20/19 10:00 Fentanyl Drip Premix IV 2 mcg/kg/hr TITR VERÓNICA 13.7 mls/hr Titration Protocol 1 MCG/KG/HR Piperacillin Sod/Tazobactam Sod 4.5 gm in 100 mls @ 200 mls/hr 10/15/19 13:00 10/20/19 12:54 Zosyn/Ns 4.5gm/100ml IV 200 mls/hr Q6HR VERÓNICA Administration Protocol Amiodarone HCl 900 mg/ 500 mls @ 33.333 mls/hr 10/15/19 16:00 10/20/19 02:26 Dextrose IV 0.5 mg/min DIRECT VERÓNICA 16.667 mls/hr Administration Protocol 1 MG/MIN Sodium Chloride 1,000 mls @ 75 mls/hr 10/16/19 14:00 10/20/19 05:16 Nacl 0.45% 1000 Ml IV 75 mls/hr DIRECT VERÓNICA Administration Sodium Chloride 1,000 mls @ 999 mls/hr 10/17/19 08:58 10/18/19 22:44 Nacl 0.45% 1000 Ml IV 999 mls/hr DIRECT PRN Administration FOR WOUND VAC/ABD REPLACEMENT Amino Acids/Electrolytes/Dextrose 2,400 mls @ 100 mls/hr 10/19/19 20:00 10/19/19 21:40 Tpn Adult IV 10/20/19 19:59 100 mls/hr DAILY@1999 [facility] Administration Protocol Amino Acids/Electrolytes/Dextrose 2,400 mls @ 100 mls/hr 10/20/19 20:00 Tpn Adult IV DAILY@1999 [facility] Protocol Magnesium Sulfate 2 gm in 50 mls @ 25 mls/hr 10/20/19 13:35 10/20/19 14:36 Magnesium Sulfate 2gm/50ml IV 10/20/19 15:34 25 mls/hr ONCE ONE Administration Insulin Human Lispro 0 unit 10/14/19 12:00 10/20/19 13:03 Humalog SUB-Q Not Given Q6HR [facility] Protocol Metoprolol Tartrate 2.5 mg 10/15/19 15:34 10/18/19 00:05 Metoprolol IV 2.5 mg Q4HR PRN Administration HR >130 Metoprolol Tartrate 5 mg 10/19/19 13:00 10/20/19 12:55 Metoprolol IV Not Given Q8H [facility] Multi-Ingred Cream/Lotion/Oil/Oint 1 applic 10/14/19 02:19 Artificial Tears Ophth Oint OU Q4HR PRN Dry Eye(s) Ondansetron HCl 4 mg 10/05/19 21:22 10/11/19 18:20 Zofran IV 4 mg Q3H PRN Administration Nausea And Vomiting Pantoprazole Sodium 40 mg 10/15/19 10:00 10/20/19 10:23 Protonix IV 40 mg QDAY VERÓNICA Administration Simple Syrup 15 ml 10/20/19 10:37 Simple Syrup FEEDTUBE PRN PRN Hypoglycemia Simple Syrup 30 ml 10/20/19 10:37 Simple Syrup FEEDTUBE PRN PRN Hypoglycemia Sodium Bicarbonate 325 mg 12/07/19 10:37 Sodium Bicarbonate FEEDTUBE PRN PRN For Clogged Feeding Tube Sodium Chloride 10 ml 10/05/19 21:22 10/19/19 09:29 Sodium Chloride Flush Syringe 10 Ml IV 10 ml PRN PRN Administration LINE FLUSH Nutrition/Malnutrition Assess - Dietary Evaluation Nutrition/Malnutrition Findings: Nutrition Notes Start: 10/08/19 11:36 Freq: Status: Active Protocol: Document 10/20/19 10:36 LP (Rec: 10/20/19 10:46 LP [id number]) Nutrition Notes Initial or Follow up Reassessment Current Diagnosis Acute Kidney Injury,COPD, Hypertension Other Pertinent Diagnosis intra-abdominal infection, disruption of bowel anastomosis, LE edema Current Diet CPN at 100 ml/hr Labs/Tests Phos 2.8 Pertinent Medications Reviewed Height 6 ft Weight 151.8 kg [place] Body Weight (kg) 80.90 BMI 45.3 Weight Status Morbidly Obese Subjective/Other Information CPN day 7. PEG-J has been placed and ok to start trickle feeds through the J- tube. Percent of energy/protein needs met: 60%/74% Burn Absent Trauma Absent GI Symptoms None Current % PO Negligible Minimum of two criteria No Fluid Accumulation Mild (non-severe) #2 Nutrition Diagnosis Inadequate oral intake Diagnosis Progress(for reassessment Continues documentation) #1 Nutrition Diagnosis Increased nutrient needs ( specify in comment below) Diagnosis Progress(for reassessment Continues documentation) Is patient on ventilator? Yes Is Patient Ambulatory and/or Out of Bed No REE-([facility] [place]-confined to bed) 2866.752 Kcal/Kg value to use for calculation 14 Approximate Energy Requirements Using 2125 kcal/Kg Calculation Used for Recommendations Kcal/kg Additional Notes Protein: 202g (up to 2.5 g/kg IBW 80.9 kg) Pay attention to renal issues Fluid: 1 ml/kcal or per MD Nutrition Intervention Change Diet Order: Continue CPN and start trickle feeds Vital 1.2 at 10ml/hr Flush 50ml q6h Nutrition Support: CPN at 100ml/hr: NA 48mEq, MVI Kcal 1,280 Protein (gm) 150 Carbohydrates (gm) 200 Fat (gm) 0 Fluid (mL) 2,400 Fiber (gm) 0 Goal #1 Meet energy and protein needs as best as possible via CPN Goal #2 Tolerate trickle feeds Anticipated Discharge Needs: unable to determine at this time Follow-Up By: 10/21/19 Additional Comments Labs in AM: BMP, Mg, Phos Follow for TF tolerance
[2019-10-20] MEDS: fentaNYL 100 MCG/2 ML INJ IV PRN (17:32)
[2019-10-20] MEDS ORDERED: TOTAL PARENTERAL NUTRITION 2,400 ML IV SCH (20:00)
[2019-10-20] MEDS: SODIUM CHLORIDE 0.45% 1000 ML 1,000 ML IV PRN (21:18)
[2019-10-20] MEDS: ENOXAPARIN 40 MG/0.4 ML INJ SUB-Q SCH (21:50)
[2019-10-21] MEDS: INSULIN LISPRO 100 UNIT/ML SUB-Q SCH ×4 (00:03→18:09)
[2019-10-21] MEDS: PIPERACIL/TAZOBACTA 4.5/NS 100 4.5 GM/100 ML VIAL IV SCH ×4 (00:06→18:48)
[2019-10-21] MEDS: METOPROLOL TARTRATE 5 MG/5 ML INJ IV SCH ×5 (00:07→22:59)
[2019-10-21] MEDS: SODIUM CHLORIDE 0.45% 1000 ML 1,000 ML IV PRN ×4 (00:31→21:13)
[2019-10-21] MEDS: fentaNYL DRIP Premix 2,000 MCG/100 ML BAG IV SCH ×5 (02:41→22:00)
[2019-10-21] MEDS: IPRATROPIUM/ALBUTEROL SULFATE 3 ML AMPUL.NEB IH SCH ×4 (03:20→19:13)
[2019-10-21] MEDS: AMIODARONE 900 MG in DEXTROSE 5% IN WATER 482 ML IV SCH (05:33)
[2019-10-21 06:58] LABS: BUN/Creatinine Ratio 32; Blood Urea Nitrogen 16 mg/dL (9-20); Calcium 7.6 mg/dL (8.4-10.2); Hemolysis Index 2
[2019-10-21] MEDS: ARFORMOTEROL 15 MCG/2 ML NEBU IH SCH ×2 (08:53→19:13)
[2019-10-21] MEDS: BUDESONIDE 0.5 MG/2 ML NEBU IH SCH ×2 (08:53→19:13)
--- NOTE | 2019-10-21 09:03 | Progress Note ---
Assessment and Plan Atrial fibrillation/flutter, spontaneously reverted to sinus rhythm treated with adenosine x1 on 10/15 on IV amiodarone, and IV metoprolol - continue current medical therapy Sepsis Severe abdominal pain s/p exploratory laparotomy, abdominal washout, closure of abdominal fascia with wound vac placement on 10/05 s/p abdominal washout with partial colectomy and left colostomy on 10/16 Recent colon resection for bowel perforation following a colonoscopy Atypical chest pain chest CT reports left lower lobe pleural effusion with suspected left upper lobe pneumonia. troponins are normal no further cardiac workup indicated Hx of NH/CAD [facility] 12/2017: PCI of the circumflex and second vessel POBA of the distal LAD occlusion. Left ventricle fraction 45-50%. ASA and statin when patient is able to take PO Tobacco abuse COPD - management per primary Hypertension - maximize medical therapy as required Hyperlipidemia - restart statin when patient is able to tolerate PO Subjective Date of service: 10/21/19 Principal diagnosis: acute renal failure Interval history: No acute events overnight. currently in sinus rhythm. Objective Vital Signs Temp Pulse Pulse Pulse Resp Resp Resp 10/21/19 08:54 75 20 10/21/19 08:30 72 10/21/19 08:00 99.9 F H 71 20 10/21/19 07:52 84 10/21/19 07:31 80 12 10/21/19 07:00 78 14 10/21/19 06:31 79 14 10/21/19 06:00 81 15 10/21/19 05:31 84 18 10/21/19 05:01 88 18 10/21/19 04:31 88 15 10/21/19 04:00 86 86 12 10/21/19 03:31 85 20 10/21/19 03:22 99.7 F H 10/21/19 03:00 86 86 13 22 10/21/19 02:31 87 11 L 10/21/19 02:00 86 12 10/21/19 01:31 90 20 10/21/19 01:01 84 15 10/21/19 00:31 79 16 10/21/19 00:25 79 10/21/19 00:07 89 10/21/19 00:01 87 13 10/21/19 00:00 87 20 10/20/19 23:31 80 19 10/20/19 23:30 80 10/20/19 23:13 98.9 F 10/20/19 23:01 78 14 10/20/19 22:31 80 19 10/20/19 22:01 81 20 10/20/19 21:31 85 19 10/20/19 21:01 86 11 L 10/20/19 20:45 90 20 10/20/19 20:01 91 H 12 10/20/19 20:00 98.5 F 91 H 91 H 20 10/20/19 19:49 93 H 24 10/20/19 19:44 95 H 10/20/19 19:01 92 H 20 10/20/19 18:32 22 10/20/19 18:01 94 H 22 10/20/19 17:32 22 10/20/19 17:01 91 H 17 10/20/19 16:01 96 H 22 10/20/19 16:00 99.3 F 91 H 91 H 22 10/20/19 15:50 93 H 10/20/19 15:48 96 H 22 10/20/19 15:00 85 34 H 10/20/19 14:00 78 16 10/20/19 13:00 88 20 10/20/19 12:54 91 H 10/20/19 12:01 96 H 22 10/20/19 12:00 99.1 F 94 H 94 H 23 10/20/19 11:41 94 H 10/20/19 11:01 99 H 23 10/20/19 10:01 102 H 27 H 10/20/19 10:00 26 H BP Pulse Ox 10/21/19 08:54 10/21/19 08:30 119/51 100 10/21/19 08:00 119/51 97 10/21/19 07:52 117/52 10/21/19 07:31 117/52 97 10/21/19 07:00 117/52 98 10/21/19 06:31 116/50 97 10/21/19 06:00 116/50 97 10/21/19 05:31 137/60 97 10/21/19 05:01 137/60 94 10/21/19 04:31 121/50 94 10/21/19 04:00 121/50 95 10/21/19 03:31 131/55 95 10/21/19 03:22 10/21/19 03:00 131/55 95 10/21/19 02:31 140/53 94 10/21/19 02:00 128/51 94 10/21/19 01:31 120/47 92 10/21/19 01:01 120/47 94 10/21/19 00:31 117/49 94 10/21/19 00:25 123/87 94 10/21/19 00:07 123/87 10/21/19 00:01 123/87 93 10/21/19 00:00 93 10/20/19 23:31 117/49 97 10/20/19 23:30 10/20/19 23:13 10/20/19 23:01 117/49 98 10/20/19 22:31 116/49 98 10/20/19 22:01 116/49 98 10/20/19 21:31 124/53 97 10/20/19 21:01 124/53 98 10/20/19 20:45 141/64 97 10/20/19 20:01 140/52 93 10/20/19 20:00 93 10/20/19 19:49 10/20/19 19:44 141/64 92 10/20/19 19:01 141/64 94 10/20/19 18:32 10/20/19 18:01 142/62 92 10/20/19 17:32 10/20/19 17:01 124/56 92 10/20/19 16:01 131/60 89 10/20/19 16:00 93 10/20/19 15:50 123/64 93 10/20/19 15:48 10/20/19 15:00 123/64 94 10/20/19 14:00 136/55 97 10/20/19 13:00 123/66 96 10/20/19 12:54 123/66 10/20/19 12:01 123/66 92 10/20/19 12:00 94 10/20/19 11:41 119/62 93 10/20/19 11:01 119/62 92 10/20/19 10:01 113/56 91 10/20/19 10:00 - Physical Examination General: Other (intubated, on the vent) HEENT: Positive: PERRL Neck: Positive: neck supple, trachea midline Abdomen: Positive: Other (abdominal wound vac is in place) Extremities: Present: +1 Edema - Labs and Meds Comprehensive Metabolic Panel 10/11/19 10/21/19 Range/Units Unknown 05:30 Sodium 145 (137-145) mmol/L Potassium 3.8 (3.6-5.0) mmol/L Chloride 107.8 H (98-107) mmol/L Carbon Dioxide 27 (22-30) mmol/L BUN 16 (9-20) mg/dL Creatinine 0.5 L (0.8-1.5) mg/dL Glucose 119 H (75-100) mg/dL Calcium 7.6 L (8.4-10.2) mg/dL Albumin See scanned result
--- NOTE | 2019-10-21 09:54 | Progress Note ---
Assessment and Plan Assessment and plan: 54 yo male with hx of CAD, RI, emphysema, COPD who presented with prolonged complicated course as a result of a bowel perforation. On admission, it was reported that a portion of his intestines protruded through his wound after severe cough. He has had multiple surgeries since admission. Dehiscence of closure of fascia * Went to OR for ex lap with closure of abdominal wall and wound vac placement ( 10/05) * Continued to decline with possible Air vs fluid, 10/10/19 IR went in and placed two drains, Noted to have possible fecal material * Returned to the OR 10/13/19 due to concern for intra-abdominal infection and was found to have with heavy contamination of abdomen patent had disruption of bowel anastomosis, abdominal washout, abthera placement and colon stapled transection and left bowel enterotomy from anastomosis completely open * Returned to OR on 10/16/19 for abdominal washout, Partial Omentectomy, Partial Colectomy, Colostomy Creation and AbThera Placement * cont wound care Severe sepsis secondary to bowel leak at anastomosis site/PNA -cont IV zosyn and fluconazole -surgical culture positive for enterococcus duras -blood cultures neg Acute Respiratory failure with hypoxia on MV > 96 hrs -on MV support -tolerating cpap trials Left lower lobe pneumonia -Continue IV antibiotic -CTA chest showed left lower lobe consolidation with pleural effusion GUILLERMO on CRF -probably ATN due to sepsis -Improving, will monitor -SPEP and UPEP pending -No hydronephrosis on CT Severe Metabolic acidosis -Improved Acute Toxic Metabolic Encephalopathy/Delirium Tremens -Started on CIWA protocol due to hx of ETOH abuse, 6packs a day -Head CT scan negative for acute findings, pt awake, not confused and obeys commands Tobacco abuse/dependence Smoking cessation counseling performed for 10 minutes, nicotine patches when necessary Hyperkalemia -Resolved Hyponatremia, now hypernatremia -Improved -IVF d/francoise Acute blood loss anemia -H/H stable -Continue to monitor H&H and transfuse for hb<7 SVT, Atrial fib/flutter with RVR -treated with adenosine x1 -on IV amiodarone drip and PRN IV Lopressor. Off IV digoxin and cardizem drip -HR currently controlled -Cardiology following Hypotension -Off esmolol drip -s/p IV fluid boluses, BP stable Hypophosphatemia -will monitor level Hx of Hypertension -Stable Hyperlipidemia -stable Atypical chest pain -probably secondary to pneumonitis -troponin levels neg Hx of RI/CAD -s/p PCI of the circumflex and second vessel POBA of the distal LAD occlusion. Left ventricle fraction of 45-50%. Morbid obesity with BMI of 45.4 -Lifestyle modification recommended COPD -Stable -cont neb tx Moderate Protein calorie malnutrition secondary to surgery -On TPN -Nutrition following Tobacco abuse -Cessation recommended Morbid obesity with BMI of 45.4 -Lifestyle modification recommended Disp: Prognosis is guarded. The goal will be to have patient go to a rehab facility after he is extubated. His insurance does not cover LTAC. It is [employer] insurance Critical time spent: 35 mins History Interval history: No fevers No vomiting no seizure-like activity No diarrhea No agitation No obvious discomfort Hospitalist Physical - Physical exam Narrative exam: General appearance: Present: no acute distress, obese - EENT Eyes: Present: PERRL ENT: other (pt is intubated ) - Neck Neck: Present: supple - Respiratory Respiratory effort: normal Respiratory: bilateral: diminished, wheezing - Cardiovascular Rhythm: regular Heart Sounds: Present: S1 & S2 - Extremities Extremity abnormal: edema (in BLE, BUE) - Abdominal General gastrointestinal: soft, hypoactive bowel sounds, other (surgical wounds clean. drain and colostomy bag noted) - Psychiatric Psychiatric: other (unable to assess due to AMS) - Neurologic Neurologic: moves all extremities - Constitutional Vitals: Temp Pulse Resp BP Pulse Ox 99.9 F H 75 20 119/51 100 10/21/19 08:00 10/21/19 08:54 10/21/19 08:54 10/21/19 08:30 10/21/19 08:30 General appearance: Present: no acute distress, obese Results - Labs CBC & Chem 7: 11/30/19 07:08 11/30/19 07:08 Labs: Laboratory Last Values WBC 22.3 K/mm3 (4.5-11.0) H 10/17/19 04:08 RBC 3.35 M/mm3 (3.65-5.03) L 10/17/19 04:08 Hgb 10.0 gm/dl (11.8-15.2) L 10/17/19 04:08 Hct 31.2 % (35.5-45.6) L D 10/17/19 04:08 MCV 93 fl (84-94) 10/17/19 04:08 MCH 30 pg (28-32) 10/17/19 04:08 MCHC 32 % (32-34) 10/17/19 04:08 RDW 16.1 % (13.2-15.2) H 10/17/19 04:08 Plt Count 188 K/mm3 (140-440) 10/17/19 04:08 Add Manual Diff Complete 10/16/19 09:20 Total Counted 100 10/16/19 09:20 Seg Neutrophils % City Director 10/09/19 10:52 Seg Neuts % (Manual) 79.0 % (40.0-70.0) H 10/16/19 09:20 Band Neutrophils % 12.0 % 10/16/19 09:20 Lymphocytes % (Manual) 4.0 % (13.4-35.0) L 10/16/19 09:20 Reactive Lymphs % (Man) 0 % 10/16/19 09:20 Monocytes % (Manual) 2.0 % (0.0-7.3) 10/16/19 09:20 Eosinophils % (Manual) 0 % (0.0-4.3) 10/16/19 09:20 Basophils % (Manual) 0 % (0.0-1.8) 10/16/19 09:20 Metamyelocytes % 2.0 % 10/16/19 09:20 Myelocytes % 1.0 % 10/16/19 09:20 Promyelocytes % 0 % 10/16/19 09:20 Blast Cells % 0 % 10/16/19 09:20 Nucleated RBC % Not Reportable 10/16/19 09:20 Seg Neutrophils # Man 11.5 K/mm3 (1.8-7.7) H 10/16/19 09:20 Band Neutrophils # 1.8 K/mm3 10/16/19 09:20 Lymphocytes # (Manual) 0.6 K/mm3 (1.2-5.4) L 10/16/19 09:20 Abs React Lymphs (Man) 0.0 K/mm3 10/16/19 09:20 Monocytes # (Manual) 0.3 K/mm3 (0.0-0.8) 10/16/19 09:20 Eosinophils # (Manual) 0.0 K/mm3 (0.0-0.4) 10/16/19 09:20 Basophils # (Manual) 0.0 K/mm3 (0.0-0.1) 10/16/19 09:20 Metamyelocytes # 0.3 K/mm3 10/16/19 09:20 Myelocytes # 0.1 K/mm3 10/16/19 09:20 Promyelocytes # 0.0 K/mm3 10/16/19 09:20 Blast Cells # 0.0 K/mm3 10/16/19 09:20 WBC Morphology Not Reportable 10/16/19 09:20 Hypersegmented Neuts Not Reportable 10/16/19 09:20 Hyposegmented Neuts Not Reportable 10/16/19 09:20 Hypogranular Neuts Not Reportable 10/16/19 09:20 Smudge Cells Not Reportable 10/16/19 09:20 Toxic Granulation Not Reportable 10/16/19 09:20 Toxic Vacuolation Not Reportable 10/16/19 09:20 Dohle Bodies Not Reportable 10/16/19 09:20 Pelger-Huet Anomaly Not Reportable 10/16/19 09:20 Andres Rods Not Reportable 10/16/19 09:20 Platelet Estimate Consistent w auto 10/16/19 09:20 Clumped Platelets Not Reportable 10/16/19 09:20 Plt Clumps, EDTA Not Reportable 10/16/19 09:20 Large Platelets Not Reportable 10/16/19 09:20 Giant Platelets Not Reportable 10/16/19 09:20 Platelet Satelliting Not Reportable 10/16/19 09:20 Plt Morphology Comment Not Reportable 10/16/19 09:20 RBC Morphology Not Reportable 10/16/19 09:20 Dimorphic RBCs Not Reportable 10/16/19 09:20 Polychromasia Few 10/16/19 09:20 Hypochromasia Few 10/16/19 09:20 Poikilocytosis Not Reportable 10/16/19 09:20 Anisocytosis Not Reportable 10/16/19 09:20 Microcytosis Not Reportable 10/16/19 09:20 Macrocytosis Not Reportable 10/16/19 09:20 Spherocytes Not Reportable 10/16/19 09:20 Pappenheimer Bodies Not Reportable 10/16/19 09:20 Sickle Cells Not Reportable 10/16/19 09:20 Target Cells Few 10/16/19 09:20 Tear Drop Cells Not Reportable 10/16/19 09:20 Ovalocytes Not Reportable 10/16/19 09:20 Helmet Cells Not Reportable 10/16/19 09:[address] [place] Bodies Not Reportable 10/16/19 09:20 [place] Rings Not Reportable 10/16/19 09:20 Mobile Cells Not Reportable 10/16/19 09:20 Bite Cells Not Reportable 10/16/19 09:20 Crenated Cell Not Reportable 10/16/19 09:20 Elliptocytes Not Reportable 10/16/19 09:20 Acanthocytes (Spur) Not Reportable 10/16/19 09:20 Rouleaux Not Reportable 10/16/19 09:20 Hemoglobin C Crystals Not Reportable 10/16/19 09:20 Schistocytes Not Reportable 10/16/19 09:20 Malaria parasites Not Reportable 10/16/19 09:20 Toni Bodies Not Reportable 10/16/19 09:20 Hem Pathologist Commnt No 10/16/19 09:20 POC ABG pH 7.310 (7.35-7.45) L 10/17/19 05:41 ABG pH 7.456 pH Units (7.350-7.450) H 10/19/19 05:00 POC ABG pCO2 52.8 (35-45) H 10/17/19 05:41 ABG pCO2 36.4 mm Hg 10/19/19 05:00 POC ABG pO2 70 (80-105) L 10/17/19 05:41 ABG pO2 78.8 mm Hg (80.0-90.0) L 10/19/19 05:00 POC ABG HCO3 26.6 (22-26 mml/L) 10/17/19 05:41 ABG HCO3 25.1 mmol/L (20.0-26.0) 10/19/19 05:00 POC ABG Total CO2 28 (23-27mmol/L) 10/17/19 05:41 POC ABG O2 Sat 92 10/17/19 05:41 ABG O2 Saturation 97.0 % (95.0-99.0) 10/19/19 05:00 ABG O2 Content 7.6 (0.0-44) 10/19/19 05:00 POC ABG Base Excess 0 ((-2) - (+3)mmol/L) 10/17/19 05:41 ABG Base Excess 1.1 mmol/L (-2.0-3.0) 10/19/19 05:00 ABG Hemoglobin 5.6 gm/dl (14.0-18.0) L 10/19/19 05:00 ABG Carboxyhemoglobin 1.3 % (0.0-5.0) 10/19/19 05:00 ABG Methemoglobin 0.5 % (0.0-1.5) 10/19/19 05:00 Oxyhemoglobin 95.2 % (95.0-99.0) 10/19/19 05:00 FiO2 35 % 10/19/19 05:00 Sodium 145 mmol/L (137-145) 10/21/19 05:30 Potassium 3.8 mmol/L (3.6-5.0) 10/21/19 05:30 Chloride 107.8 mmol/L (98-107) H 10/21/19 05:30 Carbon Dioxide 27 mmol/L (22-30) 10/21/19 05:30 Anion Gap 14 mmol/L 10/21/19 05:30 BUN 16 mg/dL (9-20) 10/21/19 05:30 Creatinine 0.5 mg/dL (0.8-1.5) L 10/21/19 05:30 Estimated GFR > 60 ml/min 10/21/19 05:30 BUN/Creatinine Ratio 32 % 10/21/19 05:30 Glucose 119 mg/dL (75-100) H 10/21/19 05:30 POC Glucose 131 (70-105) H 10/21/19 05:08 Hemoglobin A1c 5.7 % (4-6) 10/06/19 05:36 Lactic Acid 1.10 mmol/L (0.7-2.0) 10/13/19 04:20 Calcium 7.6 mg/dL (8.4-10.2) L 10/21/19 05:30 Ionized Calcium 5.2 mg/dL (4.8-5.6) 10/18/19 07:41 Phosphorus 2.90 mg/dL (2.5-4.5) 10/21/19 05:30 Magnesium 2.00 mg/dL (1.7-2.3) 10/21/19 05:30 Total Bilirubin 0.30 mg/dL (0.1-1.2) 10/15/19 04:32 Direct Bilirubin 0.3 mg/dL (0-0.2) H 10/12/19 09:30 Indirect Bilirubin 0.3 mg/dL 10/12/19 09:30 AST 72 units/L (5-40) H 10/15/19 04:32 ALT 31 units/L (7-56) 10/15/19 04:32 Alkaline Phosphatase 68 units/L (35-129) 10/15/19 04:32 Ammonia 49.0 umol/L (25-60) 10/13/19 04:20 Troponin T < 0.010 ng/mL (0.00-0.029) 10/09/19 17:23 C-Reactive Protein 30.60 mg/dL (0.00-1.30) H 10/15/19 04:32 Serum Total Protein 5.2 g/dL (6.1-8.1) L 10/11/19 09:00 Total Protein 4.0 g/dL (6.3-8.2) L D 10/15/19 04:32 Albumin 1.7 g/dL (3.9-5) L 10/15/19 04:32 Albumin/Globulin Ratio 0.7 % 10/15/19 04:32 Prealbumin 0.030 g/L (0.200-0.400) L 10/15/19 04:32 [id number] See scanned result 10/11/19 Unknown [id number] See scanned result 10/11/19 Unknown Beta Globulins See scanned result 10/11/19 Unknown Gamma Globulins See scanned result 10/11/19 Unknown Abnorm Protein Band 1 see below 10/11/19 09:00 PEP Interpretation See scanned result 10/11/19 Unknown Triglycerides 114 mg/dL (2-149) 10/15/19 04:32 Urine Color Obdulia (Yellow) 10/11/19 06:23 Urine Turbidity Cloudy (Clear) 10/11/19 06:23 Urine pH 5.0 (5.0-7.0) 10/11/19 06:23 Ur Specific [place] 1.018 (1.003-1.030) 10/11/19 06:23 Urine Protein 30 mg/dl mg/dL (Negative) 10/11/19 06:23 Urine Glucose (UA) Neg mg/dL (Negative) 10/11/19 06:23 Urine Ketones Neg mg/dL (Negative) 10/11/19 06:23 Urine Blood Mod (Negative) 10/11/19 06:23 Urine Nitrite Neg (Negative) 10/11/19 06:23 Urine Bilirubin Neg (Negative) 10/11/19 06:23 Urine Urobilinogen < 2.0 mg/dL (<2.0) 10/11/19 06:23 Ur Leukocyte Esterase Neg (Negative) 10/11/19 06:23 Urine WBC (Auto) 3.0 /HPF (0.0-6.0) 10/11/19 06:23 Urine RBC (Auto) 3.0 /HPF (0.0-6.0) 10/11/19 06:23 Urine Bacteria (Auto) 1+ /HPF (Negative) 10/11/19 06:23 Urine Eosinophils None seen (None Seen) 10/11/19 06:23 Ur Random Creatinine See scanned result 10/11/19 Unknown U Random Total Protein See scanned result 10/11/19 Unknown Urine Creatinine 116.8 mg/dL (0.1-20.0) H 10/11/19 06:23 Urine Creatinine 118.2 mg/dL (0.1-20.0) H 10/11/19 06:23 Protein/Creatinin Ratio See scanned result 10/11/19 Unknown Urine Sodium 14 mmol/L 10/11/19 06:23 Urine Total Protein 104 mg/dL (5-11.8) H 10/11/19 06:23 Urine Total Protein 105 mg/dL (5-11.8) H 10/11/19 06:23 U Abnormal Prot Band 1 See scanned result 10/11/19 Unknown U Abnormal Prot Band 2 See scanned result 10/11/19 Unknown U Abnormal Prot Band 3 See scanned result 10/11/19 Unknown Digoxin 0.7 ng/mL (0.9-2.0) L 10/19/19 04:21 Blood Type A POSITIVE 10/16/19 11:58 Antibody Screen Negative 10/16/19 11:58 Crossmatch See Detail 10/16/19 11:58 Active Medications - Current Medications Current Medications: Generic Name Dose Route Start Last Admin Trade Name Freq PRN Reason Stop Dose Admin Acetaminophen 650 mg 10/15/19 10:00 10/17/19 08:18 Tylenol IA 650 mg Q4H PRN Administration Pain MILD(1-3)/Fever >100.5/ROMANO Albuterol 2.5 mg 10/05/19 21:36 Proventil IH Q4HRT PRN Shortness Of Breath Albuterol/Ipratropium 1 ampul 10/06/19 02:00 10/21/19 08:54 Duoneb *Not For Prn Use* IH Not Given Q6HRT VERÓNICA Lipase/Protease/Amylase 1 each 10/20/19 10:37 Pancremeeta Moreno 10,500 Unit FEEDTUBE PRN PRN For Clogged Feeding Tube Arformoterol Tartrate 15 mcg 10/06/19 08:30 10/21/19 08:53 Brovana Nebu IH 15 mcg Q12HRT VERÓNICA Administration Budesonide 0.5 mg 10/07/19 12:20 10/21/19 08:53 Pulmicort IH 0.5 mg Q12HRT VERÓNICA Administration Enoxaparin Sodium 40 mg 10/19/19 22:00 10/20/19 21:50 Enoxaparin SUB-Q 40 mg QDAY@2200 VERÓNICA Administration Fluconazole 200 mls @ 100 mls/hr 10/12/19 11:00 10/20/19 10:23 Diflucan IV 100 mls/hr Q24HR VERÓNICA Administration Protocol Fentanyl Citrate 2,000 mcg in 100 mls @ 6.85 mls/hr 10/14/19 03:00 10/21/19 08:00 Fentanyl Drip Premix IV 3 mcg/kg/hr TITR VERÓNICA 20.55 mls/hr Administration Protocol 1 MCG/KG/HR Piperacillin Sod/Tazobactam Sod 4.5 gm in 100 mls @ 200 mls/hr 10/15/19 13:00 10/21/19 06:15 Zosyn/Ns 4.5gm/100ml IV 200 mls/hr Q6HR VERÓNICA Administration Protocol Amiodarone HCl 900 mg/ 500 mls @ 33.333 mls/hr 10/15/19 16:00 10/21/19 05:33 Dextrose IV 0.5 mg/min DIRECT VERÓNICA 16.667 mls/hr Administration Protocol 1 MG/MIN Sodium Chloride 1,000 mls @ 999 mls/hr 10/17/19 08:58 10/21/19 04:46 Nacl 0.45% 1000 Ml IV 200 mls/hr DIRECT PRN Administration FOR WOUND VAC/ABD REPLACEMENT Amino Acids/Electrolytes/Dextrose 2,400 mls @ 100 mls/hr 10/20/19 20:00 10/20/19 21:24 Tpn Adult IV 100 mls/hr DAILY@2000 [facility] Administration Protocol Insulin Human Lispro 0 unit 10/14/19 12:00 10/21/19 07:52 Humalog SUB-Q Not Given Q6HR [facility] Protocol Metoprolol Tartrate 2.5 mg 10/15/19 15:34 10/18/19 00:05 Metoprolol IV 2.5 mg Q4HR PRN Administration HR >130 Metoprolol Tartrate 5 mg 10/19/19 13:00 10/21/19 07:52 Metoprolol IV 5 mg Q8H VERÓNICA Administration Multi-Ingred Cream/Lotion/Oil/Oint 1 applic 10/14/19 02:19 Artificial Tears Ophth Oint OU Q4HR PRN Dry Eye(s) Ondansetron HCl 4 mg 10/05/19 21:22 10/11/19 18:20 Zofran IV 4 mg Q3H PRN Administration Nausea And Vomiting Pantoprazole Sodium 40 mg 10/15/19 10:00 10/20/19 10:23 Protonix IV 40 mg QDAY VERÓNICA Administration Simple Syrup 15 ml 10/20/19 10:37 Simple Syrup FEEDTUBE PRN PRN Hypoglycemia Simple Syrup 30 ml 10/20/19 10:37 Simple Syrup FEEDTUBE PRN PRN Hypoglycemia Sodium Bicarbonate 325 mg 10/20/19 10:37 Sodium Bicarbonate FEEDTUBE PRN PRN For Clogged Feeding Tube Sodium Chloride 10 ml 10/05/19 21:22 10/19/19 09:29 Sodium Chloride Flush Syringe 10 Ml IV 10 ml PRN PRN Administration LINE FLUSH Nutrition/Malnutrition Assess - Dietary Evaluation Nutrition/Malnutrition Findings: Nutrition Notes Start: 10/08/19 11:36 Freq: Status: Active Protocol: Document 10/20/19 10:36 LP (Rec: 10/20/19 10:46 LP [id number]) Nutrition Notes Initial or Follow up Reassessment Current Diagnosis Acute Kidney Injury,COPD, Hypertension Other Pertinent Diagnosis intra-abdominal infection, disruption of bowel anastomosis, LE edema Current Diet CPN at 100 ml/hr Labs/Tests Phos 2.8 Pertinent Medications Reviewed Height 6 ft Weight 151.8 kg Chapman Body Weight (kg) 80.90 BMI 45.3 Weight Status Morbidly Obese Subjective/Other Information CPN day 7. PEG-J has been placed and ok to start trickle feeds through the J- tube. Percent of energy/protein needs met: 60%/74% Burn Absent Trauma Absent GI Symptoms None Current % PO Negligible Minimum of two criteria No Fluid Accumulation Mild (non-severe) #2 Nutrition Diagnosis Inadequate oral intake Diagnosis Progress(for reassessment Continues documentation) #1 Nutrition Diagnosis Increased nutrient needs ( specify in comment below) Diagnosis Progress(for reassessment Continues documentation) Is patient on ventilator? Yes Is Patient Ambulatory and/or Out of Bed No REE-([facility]-confined to bed) 2866.752 Kcal/Kg value to use for calculation 14 Approximate Energy Requirements Using 2125 kcal/Kg Calculation Used for Recommendations Kcal/kg Additional Notes Protein: 202g (up to 2.5 g/kg IBW 80.9 kg) Pay attention to renal issues Fluid: 1 ml/kcal or per MD Nutrition Intervention Change Diet Order: Continue CPN and start trickle feeds Vital 1.2 at 10ml/hr Flush 50ml q6h Nutrition Support: CPN at 100ml/hr: NA 48mEq, MVI Kcal 1,280 Protein (gm) 150 Carbohydrates (gm) 200 Fat (gm) 0 Fluid (mL) 2,400 Fiber (gm) 0 Goal #1 Meet energy and protein needs as best as possible via CPN Goal #2 Tolerate trickle feeds Anticipated Discharge Needs: unable to determine at this time Follow-Up By: 10/21/19 Additional Comments Labs in AM: BMP, Mg, Phos Follow for TF tolerance
[2019-10-21] MEDS: PANTOPRAZOLE 40 MG INJ IV SCH (10:21)
[2019-10-21] MEDS: FLUCONAZOLE 400 MG 200 ML IV SCH (10:21)
--- NOTE | 2019-10-21 12:03 | Progress Note ---
Assessment and Plan - Patient Problems (1) Dehiscence of closure of fascia, superficial or muscular Current Visit: No Status: Acute Qualifiers: Encounter type: initial encounter Qualified Code(s): T81.32XA - Disruption of internal operation (surgical) wound, not elsewhere classified, initial encounter Plan to address problem: Pt stable. s/p ex lap with closure of abdominal wall and wound vac placement (10/05) - POD#15; s/p Re-exploration, washout, transection of colon, Abthera placement - 10/13 - POD#7; s/p abd washout, partial omentectomy, partial colectomy with colostomy - 10/16 POD#5. s/p abd washout, feeding tube placement, AbThera placement - 10/19 - POD#2 Rec: 1) Neuro - sedated. Family states that he has not had a drink in 3 weeks. Perhaps withdrawal may not have been involved. Ativan currently held. Staff reports he is following commands 2) CV - BP much improved. Back in Sinus rhythm! 3) Resp - Vent support. Good ABG. 4) GI - Ostomy looks good. ES Drain output has concerning appearance for possibly small leak (drain volume is low) from the colon stump site. If still related to excess pressure in the colonic stump, will try another suppository today and tomorrow morning. Had good results yesterday. Plan for return to OR tomorrow for closure. Ok to start trickle feeds via the Jejunal port. Would not advance beyond trickle feeds (10cc/hr) at this time. 5) - BUN/Cr look good 6) ID - Abx per ID. Enterococcus on cultures. Having low grade fevers 7) Nutrition - TPN 8) DVT prophylaxis - SCDs. Lovenox (hold tonight) 9) Family -spoke with and sister this AM. Consent obtained for tomorrow. Please call with questions. Subjective Date of service: 10/21/19 Patient Reports: Positive: other (left ES had 30cc during the day yesterday and 70cc at night) Objective Vital Signs - 12hr 10/21/19 10/21/19 10/21/19 00:07 00:25 00:31 Temperature Pulse Rate 89 79 79 Pulse Rate [ Anterior Left Throughout] Pulse Rate [ From Monitor] Respiratory 16 Rate Respiratory Rate [Anterior Left Throughout ] Blood Pressure 123/87 123/87 117/49 O2 Sat by Pulse 94 94 Oximetry 10/21/19 10/21/19 10/21/19 01:01 01:31 02:00 Temperature Pulse Rate 84 90 86 Pulse Rate [ Anterior Left Throughout] Pulse Rate [ From Monitor] Respiratory 15 20 12 Rate Respiratory Rate [Anterior Left Throughout ] Blood Pressure 120/47 120/47 128/51 O2 Sat by Pulse 94 92 94 Oximetry 10/21/19 10/21/19 10/21/19 02:31 03:00 03:22 Temperature 99.7 F H Pulse Rate 87 86 Pulse Rate [ 86 Anterior Left Throughout] Pulse Rate [ From Monitor] Respiratory 11 L 13 Rate Respiratory 22 Rate [Anterior Left Throughout ] Blood Pressure 140/53 131/55 O2 Sat by Pulse 94 95 Oximetry 10/21/19 10/21/19 10/21/19 03:31 04:00 04:31 Temperature Pulse Rate 85 86 88 Pulse Rate [ Anterior Left Throughout] Pulse Rate [ 86 From Monitor] Respiratory 20 12 15 Rate Respiratory Rate [Anterior Left Throughout ] Blood Pressure 131/55 121/50 121/50 O2 Sat by Pulse 95 95 94 Oximetry 10/21/19 10/21/19 10/21/19 05:01 05:31 06:00 Temperature Pulse Rate 88 84 81 Pulse Rate [ Anterior Left Throughout] Pulse Rate [ From Monitor] Respiratory 18 18 15 Rate Respiratory Rate [Anterior Left Throughout ] Blood Pressure 137/60 137/60 116/50 O2 Sat by Pulse 94 97 97 Oximetry 10/21/19 10/21/19 10/21/19 06:31 07:00 07:31 Temperature Pulse Rate 79 78 80 Pulse Rate [ Anterior Left Throughout] Pulse Rate [ From Monitor] Respiratory 14 14 12 Rate Respiratory Rate [Anterior Left Throughout ] Blood Pressure 116/50 117/52 117/52 O2 Sat by Pulse 97 98 97 Oximetry 10/21/19 10/21/19 10/21/19 07:52 08:00 08:30 Temperature 99.9 F H Pulse Rate 84 73 72 Pulse Rate [ Anterior Left Throughout] Pulse Rate [ 79 From Monitor] Respiratory 20 Rate Respiratory Rate [Anterior Left Throughout ] Blood Pressure 117/52 119/51 119/51 O2 Sat by Pulse 98 100 Oximetry 10/21/19 10/21/19 10/21/19 08:31 08:54 09:00 Temperature Pulse Rate 73 75 Pulse Rate [ 75 Anterior Left Throughout] Pulse Rate [ From Monitor] Respiratory 20 20 Rate Respiratory 20 Rate [Anterior Left Throughout ] Blood Pressure 119/51 120/49 O2 Sat by Pulse 100 94 Oximetry 10/21/19 10/21/19 10/21/19 09:31 10:00 11:32 Temperature Pulse Rate 74 73 75 Pulse Rate [ Anterior Left Throughout] Pulse Rate [ From Monitor] Respiratory 20 20 Rate Respiratory Rate [Anterior Left Throughout ] Blood Pressure 119/51 106/43 112/50 O2 Sat by Pulse 98 98 99 Oximetry - General physical appearance no distress, no pain, obese, other (open his eyes. follows commands) - Respiratory normal expansion, normal respiratory effort - Abdomen soft, distended, other (AbThera in place. Right Es and abThera with primarily serous drainage. Minimal brown drainage in left ES) - Integumentary no rash, no growths, no abnormal pigmentation - Labs 10/17/19 04:08 10/21/19 05:30 Diabetes panel 10/21/19 Range/Units 05:30 Sodium 145 (137-145) mmol/L Potassium 3.8 (3.6-5.0) mmol/L Chloride 107.8 H (98-107) mmol/L Carbon Dioxide 27 (22-30) mmol/L BUN 16 (9-20) mg/dL Creatinine 0.5 L (0.8-1.5) mg/dL Glucose 119 H (75-100) mg/dL Calcium 7.6 L (8.4-10.2) mg/dL Calcium panel 10/21/19 Range/Units 05:30 Calcium 7.6 L (8.4-10.2) mg/dL Phosphorus 2.90 (2.5-4.5) mg/dL Pituitary panel 10/21/19 Range/Units 05:30 Sodium 145 (137-145) mmol/L Potassium 3.8 (3.6-5.0) mmol/L Chloride 107.8 H (98-107) mmol/L Carbon Dioxide 27 (22-30) mmol/L BUN 16 (9-20) mg/dL Creatinine 0.5 L (0.8-1.5) mg/dL Glucose 119 H (75-100) mg/dL Calcium 7.6 L (8.4-10.2) mg/dL Adrenal panel 10/21/19 Range/Units 05:30 Sodium 145 (137-145) mmol/L Potassium 3.8 (3.6-5.0) mmol/L Chloride 107.8 H (98-107) mmol/L Carbon Dioxide 27 (22-30) mmol/L BUN 16 (9-20) mg/dL Creatinine 0.5 L (0.8-1.5) mg/dL Glucose 119 H (75-100) mg/dL Calcium 7.6 L (8.4-10.2) mg/dL
--- NOTE | 2019-10-21 13:27 | Progress Note ---
Assessment and Plan Cultures 10/10/2019 surgical culture: No growth at 72 hours 10/13/2019 tracheal aspirate culture: No growth 10/13/2019 peritoneal fluid: Enterococcus species (S to Penicillin, Vancomycin) 10/15/2019 blood culture: no growth Assessment: 54 yo M PMhx CAD, COPD, recent complicated course of bowel perforation after a colonoscopy admitted with surgical site dehiscence of the fascia. Now with: 1. Acute sepsis - noted increasing leukocytosis/low grade fever. Most likely secondary to fluid collection/abscess in the abdomen and anastomotic leak. 2. Intra-abdominal infection from anastomotic leak - s/p ex lap with closure of abdominal wall and wound vac placement (10/05/2019); s/p Re-exploration, washout, transection of colon, Abthera placement - 10/13/2019. s/p re-explora tion and colostomy creation on 10/16/2019, intra-operatively was found to have "Small amount of continued leak from the old anastomotic site. Some contamination still present. Bowel was all viable". 3. COPD, acute respiratory failure: on the vent. 4. Penicillin allergy - likely not a true allergy, reviewed EMR for previous exposure to PCNs, patient received several days of Zosyn in 2018 without issue. Recs: - continue IV Zosyn 4.5 gm q6 hrs - continue fluconazole 400mg q24h - monitor leukocytosis - consider repeat CT scan if leukocytosis worsens - remove de jesus when possible will follow Yuki Lorenzo MD [facility] ([facility]) Office [phone] Subjective Date of service: 10/21/19 Principal diagnosis: acute renal failure Interval history: Remains on the vent alert at bedside tmax 99.9 Objective - Exam Narrative Exam: General appearance: Alert intubated in NAD Eyes: anicteric sclerae, moist conjunctivae; no lid-lag; PERRLA HENT: Atraumatic; oropharynx clear with moist mucous membranes and no mucosal ulcerations/no oral thrush; normal hard and soft palate. Lungs: CTA CV: RRR no murmur Abdomen: Soft, surg wound w VAC, osteomy, drain Extremities: +marked edson leg edema Skin: +scrotal edema Psych: Appropriate affect, alert and oriented to person, place and time. Neuro: alert and oriented x 3. Moving all extermities - Constitutional Vitals: Vital Signs Temp Pulse Resp BP Pulse Ox 99.3 F 75 20 124/52 99 10/21/19 12:00 10/21/19 13:10 10/21/19 10:00 10/21/19 13:10 10/21/19 11:32 Temperature -Last 24 Hours Temperature 99.3 F Temperature 99.9 F Temperature 99.7 F Temperature 98.9 F Temperature 98.5 F Temperature 99.3 F - Labs CBC & Chem 7: 10/17/19 04:08 10/21/19 05:30 Labs: Abnormal lab results 10/20/19 10/21/19 10/21/19 Range/Units 19:06 05:08 05:30 Chloride 107.8 H (98-107) mmol/L Creatinine 0.5 L (0.8-1.5) mg/dL Glucose 119 H (75-100) mg/dL POC Glucose 117 H 131 H (70-105) Calcium 7.6 L (8.4-10.2) mg/dL 10/21/19 Range/Units 12:04 Chloride (98-107) mmol/L Creatinine (0.8-1.5) mg/dL Glucose (75-100) mg/dL POC Glucose 119 H (70-105) Calcium (8.4-10.2) mg/dL
--- NOTE | 2019-10-21 14:29 | Progress Note ---
Assessment and Plan 54 y/o male with anastomic leak 10/21: Will hold on weaning until abdomen is closed, especially knowing mental status is good. Will focus on pain control. Replace electrolytes. Appreciate Surgery recs and detail. Follow up any new recs from cards. Or tomorrow for closure 1. CV-tachycardia but stable BP. Was ok on Amio and Dilt but when BP started dropping, we stopped the dilt. Now rate back up and not controlled on 5. Spoke to nursing about increasing to 10. Continue fluid boluses for BP as needed. Trying not to start pressors if possible. 2. Pulm-stable on Vent. FiO2 down to 45% prior to go to OR. CXR shows right lower lobe airspace disease (10/15). Light green substance in ET tube has stopped. Continue current vent management. Wean once all surgeries are done. 3. GI-Going back to OR again on Tuesday for Washout. 4. Renal- Renal function and output have improved. Will continue to monitor. Had a large volume out that we are actively replacing. This may have added to hypotension this am. 5. Neuro- on rounds, per nursing, patient did not wake up during sedation vacation. Stopping all sedation now. If not able to control rate with drugs, could be related to pain. Spoke to nursing to use PRN pushes to see if this helps HR as well. If patient's mental state does not improve post all surgeries, may need CT head, EEG and neurology evaluation. 6. ID-continues to spike temps. ID following. Defer to them for repeat cultures. Blood has been negative. 7. Electrolytes-Reviewed renal note from yesterday. Overall prognosis is guarded. Will continue to follow. CCT 31 minutes. Subjective Date of service: 10/21/19 Principal diagnosis: acute renal failure Interval history: No acute events. Objective Vital Signs - 12hr 10/21/19 10/21/19 10/21/19 02:31 03:00 03:22 Temperature 99.7 F H Pulse Rate 87 86 Pulse Rate [ 86 Anterior Left Throughout] Pulse Rate [ From Monitor] Respiratory 11 L 13 Rate Respiratory 22 Rate [Anterior Left Throughout ] Blood Pressure 140/53 131/55 O2 Sat by Pulse 94 95 Oximetry 10/21/19 10/21/19 10/21/19 03:31 04:00 04:31 Temperature Pulse Rate 85 86 88 Pulse Rate [ Anterior Left Throughout] Pulse Rate [ 86 From Monitor] Respiratory 20 12 15 Rate Respiratory Rate [Anterior Left Throughout ] Blood Pressure 131/55 121/50 121/50 O2 Sat by Pulse 95 95 94 Oximetry 10/21/19 10/21/19 10/21/19 05:01 05:31 06:00 Temperature Pulse Rate 88 84 81 Pulse Rate [ Anterior Left Throughout] Pulse Rate [ From Monitor] Respiratory 18 18 15 Rate Respiratory Rate [Anterior Left Throughout ] Blood Pressure 137/60 137/60 116/50 O2 Sat by Pulse 94 97 97 Oximetry 10/21/19 10/21/19 10/21/19 06:31 07:00 07:31 Temperature Pulse Rate 79 78 80 Pulse Rate [ Anterior Left Throughout] Pulse Rate [ From Monitor] Respiratory 14 14 12 Rate Respiratory Rate [Anterior Left Throughout ] Blood Pressure 116/50 117/52 117/52 O2 Sat by Pulse 97 98 97 Oximetry 10/21/19 10/21/19 10/21/19 07:52 08:00 08:30 Temperature 99.9 F H Pulse Rate 84 73 72 Pulse Rate [ Anterior Left Throughout] Pulse Rate [ 79 From Monitor] Respiratory 20 Rate Respiratory Rate [Anterior Left Throughout ] Blood Pressure 117/52 119/51 119/51 O2 Sat by Pulse 98 100 Oximetry 10/21/19 10/21/19 10/21/19 08:31 08:54 09:00 Temperature Pulse Rate 73 75 Pulse Rate [ 75 Anterior Left Throughout] Pulse Rate [ From Monitor] Respiratory 20 20 Rate Respiratory 20 Rate [Anterior Left Throughout ] Blood Pressure 119/51 120/49 O2 Sat by Pulse 100 94 Oximetry 10/21/19 10/21/19 10/21/19 09:31 10:00 11:00 Temperature Pulse Rate 74 73 74 Pulse Rate [ Anterior Left Throughout] Pulse Rate [ From Monitor] Respiratory 20 20 20 Rate Respiratory Rate [Anterior Left Throughout ] Blood Pressure 119/51 106/43 112/50 O2 Sat by Pulse 98 98 99 Oximetry 10/21/19 10/21/19 10/21/19 11:32 12:00 12:01 Temperature 99.3 F Pulse Rate 75 80 Pulse Rate [ Anterior Left Throughout] Pulse Rate [ 77 From Monitor] Respiratory 22 38 H Rate Respiratory Rate [Anterior Left Throughout ] Blood Pressure 112/50 142/65 O2 Sat by Pulse 99 99 98 Oximetry 10/21/19 10/21/19 10/21/19 13:00 13:10 13:34 Temperature Pulse Rate 75 75 73 Pulse Rate [ Anterior Left Throughout] Pulse Rate [ From Monitor] Respiratory 25 H Rate Respiratory Rate [Anterior Left Throughout ] Blood Pressure 124/52 124/52 124/52 O2 Sat by Pulse 99 99 Oximetry 10/21/19 14:00 Temperature Pulse Rate 72 Pulse Rate [ Anterior Left Throughout] Pulse Rate [ From Monitor] Respiratory 20 Rate Respiratory Rate [Anterior Left Throughout ] Blood Pressure 118/50 O2 Sat by Pulse 99 Oximetry Constitutional: alert Eyes: non-icteric ENT: oropharynx moist Neck: supple Effort: normal Ascultation: Bilateral: diminished breath sounds Cardiovascular: regular rate and rhythm Gastrointestinal: tender Integumentary: normal Extremities: no cyanosis Neurologic: normal mental status, non-focal exam Psychiatric: mood appropriate, affect normal CBC and BMP: 10/17/19 04:08 10/21/19 05:30 ABG, PT/INR, D-dimer: ABG POC ABG pH 7.310 (7.35-7.45) L 10/17/19 05:41 ABG pH 7.456 pH Units (7.350-7.450) H 10/19/19 05:00 POC ABG pCO2 52.8 (35-45) H 10/17/19 05:41 ABG pCO2 36.4 mm Hg 10/19/19 05:00 POC ABG pO2 70 (80-105) L 10/17/19 05:41 ABG pO2 78.8 mm Hg (80.0-90.0) L 10/19/19 05:00 POC ABG HCO3 26.6 (22-26 mml/L) 10/17/19 05:41 POC ABG Total CO2 28 (23-27mmol/L) 10/17/19 05:41 POC ABG O2 Sat 92 10/17/19 05:41 ABG O2 Saturation 97.0 % (95.0-99.0) 10/19/19 05:00 Abnormal lab findings: Abnormal Labs 10/06/19 10/06/19 10/07/19 05:36 05:36 05:54 WBC 21.8 H 21.5 H RBC 3.55 L Hgb 10.9 L Hct 32.7 L RDW Plt Count Seg Neuts % (Manual) 91.0 H Lymphocytes % (Manual) 2.0 L Seg Neutrophils # Man 19.8 H Lymphocytes # (Manual) 0.4 L Monocytes # (Manual) 1.1 H POC ABG pH ABG pH POC ABG pCO2 POC ABG pO2 ABG pO2 ABG HCO3 ABG Base Excess ABG Hemoglobin Oxyhemoglobin Sodium 135 L Potassium Chloride 95.9 L Carbon Dioxide BUN Creatinine 0.7 L Glucose POC Glucose Calcium Phosphorus Magnesium Direct Bilirubin AST C-Reactive Protein Serum Total Protein Total Protein 5.7 L Albumin 2.5 L Prealbumin Katia-3-Snftgajeg Yorhd-6-Uetwmgcsr Gamma Globulins PEP Interpretation Urine Creatinine Urine Total Protein Digoxin Crossmatch 10/07/19 10/09/19 10/09/19 05:54 10:52 10:52 WBC 16.6 H RBC Hgb Hct RDW Plt Count 498 H Seg Neuts % (Manual) 93.0 H Lymphocytes % (Manual) 5.0 L Seg Neutrophils # Man 15.4 H Lymphocytes # (Manual) 0.8 L Monocytes # (Manual) POC ABG pH ABG pH POC ABG pCO2 POC ABG pO2 ABG pO2 ABG HCO3 ABG Base Excess ABG Hemoglobin Oxyhemoglobin Sodium Potassium Chloride 97.9 L Carbon Dioxide 20 L D BUN 23 H Creatinine 1.7 H D Glucose 109 H POC Glucose Calcium 8.1 L Phosphorus Magnesium Direct Bilirubin AST C-Reactive Protein Serum Total Protein Total Protein Albumin Prealbumin Eunqg-7-Zwuurcwpx Raadb-8-Hjzonqhwx Gamma Globulins PEP Interpretation Urine Creatinine Urine Total Protein Digoxin Crossmatch 10/09/19 10/10/19 10/10/19 17:23 05:30 05:30 WBC 14.6 H RBC Hgb 11.1 L Hct 33.5 L RDW Plt Count 527 H Seg Neuts % (Manual) Lymphocytes % (Manual) Seg Neutrophils # Man Lymphocytes # (Manual) Monocytes # (Manual) POC ABG pH ABG pH POC ABG pCO2 POC ABG pO2 ABG pO2 ABG HCO3 ABG Base Excess ABG Hemoglobin Oxyhemoglobin Sodium 130 L D Potassium 5.1 H Chloride 90.0 L 91.0 L Carbon Dioxide 20 L 20 L BUN 27 H 35 H Creatinine 1.9 H 2.0 H Glucose 104 H POC Glucose Calcium Phosphorus Magnesium Direct Bilirubin AST C-Reactive Protein Serum Total Protein Total Protein Albumin Prealbumin Dozvm-8-Wxjsbtijd Rfdzb-4-Xqblxkcnn Gamma Globulins PEP Interpretation Urine Creatinine Urine Total Protein Digoxin Crossmatch 10/10/19 10/10/19 10/11/19 08:33 08:44 05:41 WBC 13.2 H RBC Hgb 11.3 L Hct 33.8 L RDW 15.3 H Plt Count 543 H Seg Neuts % (Manual) Lymphocytes % (Manual) Seg Neutrophils # Man Lymphocytes # (Manual) Monocytes # (Manual) POC ABG pH ABG pH POC ABG pCO2 POC ABG pO2 ABG pO2 ABG HCO3 ABG Base Excess ABG Hemoglobin Oxyhemoglobin Sodium Potassium Chloride Carbon Dioxide BUN Creatinine Glucose 113 H POC Glucose 117 H Calcium Phosphorus Magnesium Direct Bilirubin AST C-Reactive Protein Serum Total Protein Total Protein Albumin Prealbumin Fmxyg-1-Sxqqjfqdf Fhniu-1-Txsvkylwx Gamma Globulins PEP Interpretation Urine Creatinine Urine Total Protein Digoxin Crossmatch 10/11/19 10/11/19 10/11/19 05:41 06:23 06:23 WBC RBC Hgb Hct RDW Plt Count Seg Neuts % (Manual) Lymphocytes % (Manual) Seg Neutrophils # Man Lymphocytes # (Manual) Monocytes # (Manual) POC ABG pH ABG pH POC ABG pCO2 POC ABG pO2 ABG pO2 ABG HCO3 ABG Base Excess ABG Hemoglobin Oxyhemoglobin Sodium 134 L Potassium Chloride 96.3 L Carbon Dioxide BUN 37 H Creatinine Glucose 58 L POC Glucose Calcium Phosphorus 4.90 H Magnesium Direct Bilirubin AST C-Reactive Protein Serum Total Protein Total Protein Albumin Prealbumin Kharb-2-Biynthcgj Pitub-0-Wpvbwkfxe Gamma Globulins PEP Interpretation Urine Creatinine 118.2 H 116.8 H Urine Total Protein 105 H 104 H Digoxin Crossmatch 10/11/19 10/12/19 10/12/19 09:00 06:09 06:09 WBC 13.8 H RBC 3.39 L Hgb 10.2 L Hct 30.9 L RDW 15.5 H Plt Count 459 H Seg Neuts % (Manual) Lymphocytes % (Manual) Seg Neutrophils # Man Lymphocytes # (Manual) Monocytes # (Manual) POC ABG pH ABG pH POC ABG pCO2 POC ABG pO2 ABG pO2 ABG HCO3 ABG Base Excess ABG Hemoglobin Oxyhemoglobin Sodium 131 L Potassium Chloride 96.2 L Carbon Dioxide 21 L BUN 43 H Creatinine Glucose 72 L POC Glucose Calcium Phosphorus Magnesium Direct Bilirubin AST C-Reactive Protein Serum Total Protein 5.2 L Total Protein Albumin 1.9 L Prealbumin Jncmq-0-Xxlxleozv 0.9 H Gmlxt-2-Hmsdjrtss 1.0 H Gamma Globulins 0.7 L PEP Interpretation see below H Urine Creatinine Urine Total Protein Digoxin Crossmatch 10/12/19 10/12/19 10/12/19 08:20 09:30 09:30 WBC RBC Hgb Hct RDW Plt Count Seg Neuts % (Manual) Lymphocytes % (Manual) Seg Neutrophils # Man Lymphocytes # (Manual) Monocytes # (Manual) POC ABG pH ABG pH POC ABG pCO2 POC ABG pO2 63 L ABG pO2 ABG HCO3 ABG Base Excess ABG Hemoglobin Oxyhemoglobin Sodium Potassium Chloride Carbon Dioxide BUN Creatinine Glucose POC Glucose Calcium Phosphorus Magnesium 2.50 H Direct Bilirubin 0.3 H AST C-Reactive Protein Serum Total Protein Total Protein 5.1 L Albumin 2.2 L Prealbumin Nxlww-5-Plggzudjl Wtfot-7-Xprcdhtsr Gamma Globulins PEP Interpretation Urine Creatinine Urine Total Protein Digoxin Crossmatch 10/13/19 10/13/19 10/13/19 04:20 04:20 13:20 WBC 15.7 H RBC 3.64 L Hgb 10.9 L Hct 33.1 L RDW 15.8 H Plt Count 488 H Seg Neuts % (Manual) Lymphocytes % (Manual) Seg Neutrophils # Man Lymphocytes # (Manual) Monocytes # (Manual) POC ABG pH ABG pH POC ABG pCO2 POC ABG pO2 ABG pO2 ABG HCO3 ABG Base Excess ABG Hemoglobin Oxyhemoglobin Sodium Potassium Chloride Carbon Dioxide BUN 28 H Creatinine Glucose POC Glucose Calcium Phosphorus Magnesium Direct Bilirubin AST C-Reactive Protein Serum Total Protein Total Protein Albumin Prealbumin Qianb-3-Mgudloman Jecwu-8-Dwsoxxhoi Gamma Globulins PEP Interpretation Urine Creatinine Urine Total Protein Digoxin Crossmatch See Detail 10/13/19 10/13/19 10/14/19 18:24 20:05 04:47 WBC 24.2 H RBC Hgb 10.9 L Hct 34.2 L RDW 17.0 H Plt Count 442 H Seg Neuts % (Manual) Lymphocytes % (Manual) Seg Neutrophils # Man Lymphocytes # (Manual) Monocytes # (Manual) POC ABG pH ABG pH 7.180 L* 7.278 L POC ABG pCO2 POC ABG pO2 ABG pO2 130.7 H ABG HCO3 ABG Base Excess -6.5 L -6.5 L ABG Hemoglobin 12.2 L 12.3 L Oxyhemoglobin 92.9 L Sodium Potassium Chloride Carbon Dioxide BUN Creatinine Glucose POC Glucose Calcium Phosphorus Magnesium Direct Bilirubin AST C-Reactive Protein Serum Total Protein Total Protein Albumin Prealbumin Irtyv-3-Rhofxlffa Ffabb-9-Qmvoqwyru Gamma Globulins PEP Interpretation Urine Creatinine Urine Total Protein Digoxin Crossmatch 10/14/19 10/14/19 10/14/19 04:47 05:40 10:14 WBC RBC Hgb Hct RDW Plt Count Seg Neuts % (Manual) Lymphocytes % (Manual) Seg Neutrophils # Man Lymphocytes # (Manual) Monocytes # (Manual) POC ABG pH ABG pH POC ABG pCO2 POC ABG pO2 ABG pO2 76.3 L ABG HCO3 19.1 L ABG Base Excess -5.8 L ABG Hemoglobin 10.9 L Oxyhemoglobin 93.4 L Sodium Potassium 5.1 H D Chloride 109.2 H Carbon Dioxide 17 L BUN 38 H Creatinine 1.8 H D Glucose 104 H POC Glucose Calcium 7.4 L Phosphorus 5.60 H Magnesium Direct Bilirubin AST C-Reactive Protein Serum Total Protein Total Protein Albumin Prealbumin Lkybp-5-Gbiuzjfyu Ubixb-9-Vbykvolog Gamma Globulins PEP Interpretation Urine Creatinine Urine Total Protein Digoxin Crossmatch 10/14/19 10/15/19 10/15/19 23:46 04:32 04:32 WBC 15.5 H RBC 2.89 L Hgb 8.8 L Hct 27.3 L D RDW 16.6 H Plt Count Seg Neuts % (Manual) Lymphocytes % (Manual) Seg Neutrophils # Man Lymphocytes # (Manual) Monocytes # (Manual) POC ABG pH ABG pH POC ABG pCO2 POC ABG pO2 ABG pO2 ABG HCO3 ABG Base Excess ABG Hemoglobin Oxyhemoglobin Sodium 147 H Potassium Chloride 114.0 H Carbon Dioxide 19 L BUN 42 H Creatinine Glucose 112 H POC Glucose 113 H Calcium 7.3 L Phosphorus Magnesium Direct Bilirubin AST 72 H C-Reactive Protein 30.60 H Serum Total Protein Total Protein 4.0 L D Albumin 1.7 L Prealbumin 0.030 L Pjqzr-5-Xiokordtv Vlhln-1-Ppbefywpc Gamma Globulins PEP Interpretation Urine Creatinine Urine Total Protein Digoxin Crossmatch 10/15/19 10/15/19 10/15/19 05:30 12:08 17:23 WBC RBC Hgb Hct RDW Plt Count Seg Neuts % (Manual) Lymphocytes % (Manual) Seg Neutrophils # Man Lymphocytes # (Manual) Monocytes # (Manual) POC ABG pH ABG pH 7.296 L POC ABG pCO2 POC ABG pO2 ABG pO2 114.7 H ABG HCO3 ABG Base Excess -3.7 L ABG Hemoglobin 8.9 L Oxyhemoglobin Sodium Potassium Chloride Carbon Dioxide BUN Creatinine Glucose POC Glucose 106 H 106 H Calcium Phosphorus Magnesium Direct Bilirubin AST C-Reactive Protein Serum Total Protein Total Protein Albumin Prealbumin Pwgms-2-Xydlrdmff Xbvkm-1-Akcjlqwjc Gamma Globulins PEP Interpretation Urine Creatinine Urine Total Protein Digoxin Crossmatch 10/16/19 10/16/19 10/16/19 00:07 04:44 05:24 WBC RBC Hgb Hct RDW Plt Count Seg Neuts % (Manual) Lymphocytes % (Manual) Seg Neutrophils # Man Lymphocytes # (Manual) Monocytes # (Manual) POC ABG pH ABG pH POC ABG pCO2 POC ABG pO2 ABG pO2 ABG HCO3 ABG Base Excess ABG Hemoglobin Oxyhemoglobin Sodium 150 H Potassium Chloride 115.8 H Carbon Dioxide BUN 35 H Creatinine Glucose 129 H POC Glucose 119 H 129 H Calcium 7.3 L Phosphorus 1.80 L D Magnesium Direct Bilirubin AST C-Reactive Protein Serum Total Protein Total Protein Albumin Prealbumin Fjxqa-4-Owgutkfvu Onvog-3-Noltrtazo Gamma Globulins PEP Interpretation Urine Creatinine Urine Total Protein Digoxin Crossmatch 10/16/19 10/16/19 10/16/19 06:53 09:20 11:58 WBC 14.6 H RBC 2.70 L Hgb 8.1 L Hct 25.2 L RDW 16.7 H Plt Count Seg Neuts % (Manual) 79.0 H Lymphocytes % (Manual) 4.0 L Seg Neutrophils # Man 11.5 H Lymphocytes # (Manual) 0.6 L Monocytes # (Manual) POC ABG pH ABG pH POC ABG pCO2 47.0 H POC ABG pO2 ABG pO2 ABG HCO3 ABG Base Excess ABG Hemoglobin Oxyhemoglobin Sodium Potassium Chloride Carbon Dioxide BUN Creatinine Glucose POC Glucose Calcium Phosphorus Magnesium Direct Bilirubin AST C-Reactive Protein Serum Total Protein Total Protein Albumin Prealbumin Lrobo-7-Chkkypmlr Ufber-3-Xgitmhiqx Gamma Globulins PEP Interpretation Urine Creatinine Urine Total Protein Digoxin Crossmatch See Detail 10/16/19 10/16/19 10/16/19 15:23 17:50 23:58 WBC RBC Hgb Hct RDW Plt Count Seg Neuts % (Manual) Lymphocytes % (Manual) Seg Neutrophils # Man Lymphocytes # (Manual) Monocytes # (Manual) POC ABG pH ABG pH POC ABG pCO2 POC ABG pO2 ABG pO2 ABG HCO3 ABG Base Excess ABG Hemoglobin Oxyhemoglobin Sodium Potassium Chloride Carbon Dioxide BUN Creatinine Glucose POC Glucose 221 H 201 H 179 H Calcium Phosphorus Magnesium Direct Bilirubin AST C-Reactive Protein Serum Total Protein Total Protein Albumin Prealbumin Vssls-9-Nujbbmswt Rcfip-7-Lvqayajcs Gamma Globulins PEP Interpretation Urine Creatinine Urine Total Protein Digoxin Crossmatch 10/17/19 10/17/19 10/17/19 04:08 04:08 05:41 WBC 22.3 H RBC 3.35 L Hgb 10.0 L Hct 31.2 L D RDW 16.1 H Plt Count Seg Neuts % (Manual) Lymphocytes % (Manual) Seg Neutrophils # Man Lymphocytes # (Manual) Monocytes # (Manual) POC ABG pH 7.310 L ABG pH POC ABG pCO2 52.8 H POC ABG pO2 70 L ABG pO2 ABG HCO3 ABG Base Excess ABG Hemoglobin Oxyhemoglobin Sodium 147 H Potassium Chloride 114.9 H Carbon Dioxide BUN 36 H Creatinine Glucose 165 H POC Glucose Calcium 6.9 L Phosphorus 2.20 L D Magnesium Direct Bilirubin AST C-Reactive Protein Serum Total Protein Total Protein Albumin Prealbumin Eezpe-5-Uhcraxmht Smycb-6-Mcsuawooc Gamma Globulins PEP Interpretation Urine Creatinine Urine Total Protein Digoxin Crossmatch 10/17/19 10/17/19 10/17/19 05:42 11:33 18:17 WBC RBC Hgb Hct RDW Plt Count Seg Neuts % (Manual) Lymphocytes % (Manual) Seg Neutrophils # Man Lymphocytes # (Manual) Monocytes # (Manual) POC ABG pH ABG pH POC ABG pCO2 POC ABG pO2 ABG pO2 ABG HCO3 ABG Base Excess ABG Hemoglobin Oxyhemoglobin Sodium Potassium Chloride Carbon Dioxide BUN Creatinine Glucose POC Glucose 149 H 154 H 163 H Calcium Phosphorus Magnesium Direct Bilirubin AST C-Reactive Protein Serum Total Protein Total Protein Albumin Prealbumin Aoege-9-Noghudlpg Hmkdh-0-Vsemigtpe Gamma Globulins PEP Interpretation Urine Creatinine Urine Total Protein Digoxin Crossmatch 10/17/19 10/18/19 10/18/19 23:34 03:29 04:50 WBC RBC Hgb Hct RDW Plt Count Seg Neuts % (Manual) Lymphocytes % (Manual) Seg Neutrophils # Man Lymphocytes # (Manual) Monocytes # (Manual) POC ABG pH ABG pH POC ABG pCO2 POC ABG pO2 ABG pO2 78.8 L ABG HCO3 ABG Base Excess ABG Hemoglobin 8.8 L Oxyhemoglobin Sodium Potassium Chloride 111.8 H Carbon Dioxide BUN 27 H Creatinine 0.6 L Glucose 140 H POC Glucose 135 H Calcium 7.1 L Phosphorus 1.80 L Magnesium Direct Bilirubin AST C-Reactive Protein Serum Total Protein Total Protein Albumin Prealbumin Anykd-9-Vtjpcfxom Yhavy-9-Upkwxwdup Gamma Globulins PEP Interpretation Urine Creatinine Urine Total Protein Digoxin Crossmatch 10/18/19 10/18/19 10/18/19 05:45 11:19 18:26 WBC RBC Hgb Hct RDW Plt Count Seg Neuts % (Manual) Lymphocytes % (Manual) Seg Neutrophils # Man Lymphocytes # (Manual) Monocytes # (Manual) POC ABG pH ABG pH POC ABG pCO2 POC ABG pO2 ABG pO2 ABG HCO3 ABG Base Excess ABG Hemoglobin Oxyhemoglobin Sodium Potassium Chloride Carbon Dioxide BUN Creatinine Glucose POC Glucose 145 H 152 H 125 H Calcium Phosphorus Magnesium Direct Bilirubin AST C-Reactive Protein Serum Total Protein Total Protein Albumin Prealbumin Fvzxu-6-Rasoloqwr Yspqs-1-Rpdupusrb Gamma Globulins PEP Interpretation Urine Creatinine Urine Total Protein Digoxin Crossmatch 10/18/19 10/19/19 10/19/19 23:27 04:21 04:21 WBC RBC Hgb Hct RDW Plt Count Seg Neuts % (Manual) Lymphocytes % (Manual) Seg Neutrophils # Man Lymphocytes # (Manual) Monocytes # (Manual) POC ABG pH ABG pH POC ABG pCO2 POC ABG pO2 ABG pO2 ABG HCO3 ABG Base Excess ABG Hemoglobin Oxyhemoglobin Sodium Potassium Chloride 108.4 H Carbon Dioxide BUN 22 H Creatinine 0.5 L Glucose 123 H POC Glucose 127 H Calcium 7.4 L Phosphorus 1.80 L Magnesium Direct Bilirubin AST C-Reactive Protein Serum Total Protein Total Protein Albumin Prealbumin Nhzrv-6-Wsuacuzll Fkcfo-0-Zzyviriqo Gamma Globulins PEP Interpretation Urine Creatinine Urine Total Protein Digoxin 0.7 L Crossmatch 10/19/19 10/19/19 10/19/19 05:00 05:35 11:26 WBC RBC Hgb Hct RDW Plt Count Seg Neuts % (Manual) Lymphocytes % (Manual) Seg Neutrophils # Man Lymphocytes # (Manual) Monocytes # (Manual) POC ABG pH ABG pH 7.456 H POC ABG pCO2 POC ABG pO2 ABG pO2 78.8 L ABG HCO3 ABG Base Excess ABG Hemoglobin 5.6 L Oxyhemoglobin Sodium Potassium Chloride Carbon Dioxide BUN Creatinine Glucose POC Glucose 124 H 111 H Calcium Phosphorus Magnesium Direct Bilirubin AST C-Reactive Protein Serum Total Protein Total Protein Albumin Prealbumin Kjpuf-7-Htqkkddyn Hghaz-6-Kqbyglnna Gamma Globulins PEP Interpretation Urine Creatinine Urine Total Protein Digoxin Crossmatch 10/19/19 10/20/19 10/20/19 23:23 04:50 05:17 WBC RBC Hgb Hct RDW Plt Count Seg Neuts % (Manual) Lymphocytes % (Manual) Seg Neutrophils # Man Lymphocytes # (Manual) Monocytes # (Manual) POC ABG pH ABG pH POC ABG pCO2 POC ABG pO2 ABG pO2 ABG HCO3 ABG Base Excess ABG Hemoglobin Oxyhemoglobin Sodium Potassium Chloride 108.1 H Carbon Dioxide BUN Creatinine 0.4 L Glucose 134 H POC Glucose 129 H 123 H Calcium 7.1 L Phosphorus Magnesium Direct Bilirubin AST C-Reactive Protein Serum Total Protein Total Protein Albumin Prealbumin Txpop-9-Vevnahlxa Aqygu-9-Panihkvxw Gamma Globulins PEP Interpretation Urine Creatinine Urine Total Protein Digoxin Crossmatch 10/20/19 10/20/19 10/21/19 11:40 19:06 05:08 WBC RBC Hgb Hct RDW Plt Count Seg Neuts % (Manual) Lymphocytes % (Manual) Seg Neutrophils # Man Lymphocytes # (Manual) Monocytes # (Manual) POC ABG pH ABG pH POC ABG pCO2 POC ABG pO2 ABG pO2 ABG HCO3 ABG Base Excess ABG Hemoglobin Oxyhemoglobin Sodium Potassium Chloride Carbon Dioxide BUN Creatinine Glucose POC Glucose 139 H 117 H 131 H Calcium Phosphorus Magnesium Direct Bilirubin AST C-Reactive Protein Serum Total Protein Total Protein Albumin Prealbumin Lodxk-3-Kwxngbvbu [place]-9-Heuzahrxt Gamma Globulins PEP Interpretation Urine Creatinine Urine Total Protein Digoxin Crossmatch 10/21/19 10/21/19 05:30 12:04 WBC RBC Hgb Hct RDW Plt Count Seg Neuts % (Manual) Lymphocytes % (Manual) Seg Neutrophils # Man Lymphocytes # (Manual) Monocytes # (Manual) POC ABG pH ABG pH POC ABG pCO2 POC ABG pO2 ABG pO2 ABG HCO3 ABG Base Excess ABG Hemoglobin Oxyhemoglobin Sodium Potassium Chloride 107.8 H Carbon Dioxide BUN Creatinine 0.5 L Glucose 119 H POC Glucose 119 H Calcium 7.6 L Phosphorus Magnesium Direct Bilirubin AST C-Reactive Protein Serum Total Protein Total Protein Albumin Prealbumin Zcrod-3-Pygfxfitp Cyxse-3-Bnnqjzyxr Gamma Globulins PEP Interpretation Urine Creatinine Urine Total Protein Digoxin Crossmatch
[2019-10-21] MEDS ORDERED: TOTAL PARENTERAL NUTRITION 2,400 ML IV SCH (20:00)
[2019-10-22] MEDS: PIPERACIL/TAZOBACTA 4.5/NS 100 4.5 GM/100 ML VIAL IV SCH ×5 (00:02→23:33)
[2019-10-22] MEDS: INSULIN LISPRO 100 UNIT/ML SUB-Q SCH ×5 (00:04→23:36)
[2019-10-22] MEDS: SODIUM CHLORIDE 0.45% 1000 ML 1,000 ML IV PRN ×2 (00:58→04:16)
[2019-10-22] MEDS: fentaNYL DRIP Premix 2,000 MCG/100 ML BAG IV SCH ×6 (01:25→21:33)
[2019-10-22] MEDS: IPRATROPIUM/ALBUTEROL SULFATE 3 ML AMPUL.NEB IH SCH ×4 (01:44→19:34)
[2019-10-22] MEDS: AMIODARONE 900 MG in DEXTROSE 5% IN WATER 482 ML IV SCH (05:22)
[2019-10-22] MEDS: METOPROLOL TARTRATE 5 MG/5 ML INJ IV SCH ×3 (05:25→21:33)
[2019-10-22 06:02] LABS: BUN/Creatinine Ratio 34; Blood Urea Nitrogen 17 mg/dL (9-20); Calcium 7.7 mg/dL (8.4-10.2); Hemolysis Index 24
[2019-10-22] MEDS: BUDESONIDE 0.5 MG/2 ML NEBU IH SCH ×2 (07:49→19:34)
[2019-10-22] MEDS: ARFORMOTEROL 15 MCG/2 ML NEBU IH SCH ×2 (07:49→19:34)
[2019-10-22] MEDS: PROPOFOL 1,000 MG/100 ML BOTTLE IV SCH ×3 (09:30→21:31)
[2019-10-22] MEDS ORDERED: MIDAZOLAM 2 MG/2 ML INJ IV ONE (10:00)
[2019-10-22] MEDS: PANTOPRAZOLE 40 MG INJ IV SCH (10:02)
[2019-10-22] MEDS: FLUCONAZOLE 400 MG 200 ML IV SCH (10:04)
--- NOTE | 2019-10-22 10:49 | XRay Report ---
CHEST 1 VIEW INDICATION: ET Tube placement. COMPARISON: 10/15/2019 FINDINGS: Support devices: The endotracheal tube terminates 6 cm superior to the chetan. Right arm PICC termina geraldine near the cavoatrial junction. Heart: Within normal limits. Lungs/Pleura: Mild bilateral congestive changes and small right pleural effusion are identified. Subt le patchy infiltrate or atelectasis in the superior lingula has decreased by 50%. No pneumothorax. Additional findings: None. IMPRESSION: The endotracheal tube terminates 6 cm superior to the chetan. Signer Name: Skinny Jacinto Jr, MD Signed: 10/22/2019 10:44 AM Workstation Name: [id number]
--- NOTE | 2019-10-22 11:02 | Progress Note ---
Assessment and Plan Cultures 10/10/2019 surgical culture: No growth at 72 hours 10/13/2019 tracheal aspirate culture: No growth 10/13/2019 peritoneal fluid: Enterococcus species (S to Penicillin, Vancomycin) 10/15/2019 blood culture: no growth Assessment: 54 yo M PMhx CAD, COPD, recent complicated course of bowel perforation after a colonoscopy admitted with surgical site dehiscence of the fascia. Now with: 1. Acute sepsis - present with leukocytosis and tachycardia. Most likely secondary to fluid collection/abscess in the abdomen and anastomotic leak. 2. Intra-abdominal infection from anastomotic leak - s/p ex lap with closure of abdominal wall and wound vac placement (10/05/2019); s/p Re-exploration, washout , transection of colon, Abthera placement - 10/13/2019. s/p re-exploration and colostomy creation on 10/16/2019, intra-operatively was found to have "Small amount of continued leak from the old anastomotic site. Some contamination still present. Bowel was all viable". Back on OR on 10/19/2019, findings "small leak from stump staple line". 3. COPD, acute respiratory failure: on the vent. 4. Penicillin allergy - likely not a true allergy, reviewed EMR for previous exposure to PCNs, patient received several days of Zosyn in 2018 without issue. Recs: - continue IV Zosyn 4.5 gm q6 hrs - continue fluconazole 400mg q24h - repeat CBC ordered for tomorrow AM - awaiting OR tomorrow for possible closure. Tentatively will plan to d/c abx 48 hours post closure depending on OR findings and clinical course. Julianna Pineda MD, FACP [facility] ([facility]) C: [phone] O: [phone] F: [phone] Subjective Date of service: 10/22/19 Principal diagnosis: acute renal failure Interval history: Low grade temperatures. Remains on the vent. Otherwise stable. Remains on antibiotics. Objective - Exam Narrative Exam: Physical Exam: Constitutional: sedated, intubated Head, Ears, Nose: Normocephalic, atraumatic. External ears, nose normal Eyes: Conjunctivae/corneas clear. No icterus. No ptosis. Neck: intubated Oral: intubated Cardiovascular: S1, S2 normal. Respiratory: Good air entry, few rhonchi bilaterally GI: Midline abdominal VAC. bowel sounds +, Colostomy + drain + Musculoskeletal: anasarca, pedal edema + Skin: No rash or abscess Hem/Lymphatic: No palpable cervical or supraclavicular nodes. No lymphangitis Psych: no agitation Neurological: sedated, intubated, on vent - Constitutional Vitals: Vital Signs Temp Pulse Resp BP Pulse Ox 99.9 F H 82 20 104/47 96 10/22/19 08:00 10/22/19 10:00 10/22/19 10:00 10/22/19 10:00 10/22/19 10:00 Temperature -Last 24 Hours Temperature 99.9 F Temperature 98.8 F Temperature 98.8 F Temperature 97.9 F Temperature 99.9 F Temperature 99.3 F - Labs CBC & Chem 7: 10/17/19 04:08 10/22/19 05:14 Labs: Abnormal lab results 10/21/19 10/21/19 10/22/19 Range/Units 12:04 17:31 05:14 Creatinine 0.5 L (0.8-1.5) mg/dL Glucose 116 H (75-100) mg/dL POC Glucose 119 H 110 H (70-105) Calcium 7.7 L (8.4-10.2) mg/dL 10/22/19 Range/Units 05:37 Creatinine (0.8-1.5) mg/dL Glucose (75-100) mg/dL POC Glucose 110 H (70-105) Calcium (8.4-10.2) mg/dL - Imaging and cardiology Chest x-ray: report reviewed, image reviewed (b/l pleural effusions)
--- NOTE | 2019-10-22 11:08 | Progress Note ---
Subjective Date of service: 10/22/19 Principal diagnosis: acute renal failure Interval history: Called to ICU for emergent intubation as patient had self extubated . Patient was ventilated with ambu bag , Spo2 maintained above 95 % Vitals were stable throughout Patient given Succhinylcholine 140 mg iv , then using Glideoscope with Mac 4 blade patient intubated with a size 8.0 tube . Intubation was difficult due to the patient's anatomy , but was confirmed by auscultation , visible chest rise as well as color change . Post intubation I discussed with ICU attending and recommended that when decision is made to finally extubate patient a cook tube exchanger should be used for added safety should the need for reintubation arise. Objective - Constitutional Vitals: Vital Signs - 12hr 10/21/19 10/21/19 10/21/19 22:58 22:59 23:00 Temperature 98.8 F Pulse Rate 70 70 Pulse Rate [ Anterior Bilateral Throughout] Pulse Rate [ From Monitor] Respiratory 20 Rate Respiratory Rate [Anterior Bilateral Throughout] Blood Pressure 117/47 106/43 O2 Sat by Pulse 99 Oximetry 10/21/19 10/22/19 10/22/19 23:19 00:00 00:05 Temperature Pulse Rate 86 76 78 Pulse Rate [ Anterior Bilateral Throughout] Pulse Rate [ 79 From Monitor] Respiratory 19 20 Rate Respiratory Rate [Anterior Bilateral Throughout] Blood Pressure 106/43 112/45 106/43 O2 Sat by Pulse 98 98 98 Oximetry 10/22/19 10/22/19 10/22/19 01:00 01:45 02:00 Temperature Pulse Rate 74 73 Pulse Rate [ 81 Anterior Bilateral Throughout] Pulse Rate [ From Monitor] Respiratory 20 20 Rate Respiratory 21 Rate [Anterior Bilateral Throughout] Blood Pressure 112/45 109/46 O2 Sat by Pulse 99 99 Oximetry 10/22/19 10/22/19 10/22/19 03:00 03:20 04:00 Temperature 98.8 F Pulse Rate 71 71 Pulse Rate [ Anterior Bilateral Throughout] Pulse Rate [ 74 From Monitor] Respiratory 20 20 Rate Respiratory Rate [Anterior Bilateral Throughout] Blood Pressure 107/42 116/45 O2 Sat by Pulse 100 100 Oximetry 10/22/19 10/22/19 10/22/19 04:05 05:00 05:25 Temperature Pulse Rate 77 74 83 Pulse Rate [ Anterior Bilateral Throughout] Pulse Rate [ From Monitor] Respiratory 20 Rate Respiratory Rate [Anterior Bilateral Throughout] Blood Pressure 116/45 109/48 109/48 O2 Sat by Pulse 98 99 Oximetry 10/22/19 10/22/19 10/22/19 06:01 07:01 07:47 Temperature Pulse Rate 88 82 84 Pulse Rate [ Anterior Bilateral Throughout] Pulse Rate [ From Monitor] Respiratory 18 15 Rate Respiratory Rate [Anterior Bilateral Throughout] Blood Pressure 109/48 122/61 122/61 O2 Sat by Pulse 97 98 99 Oximetry 10/22/19 10/22/19 10/22/19 07:50 08:00 08:01 Temperature 99.9 F H Pulse Rate 95 H 83 Pulse Rate [ 84 Anterior Bilateral Throughout] Pulse Rate [ From Monitor] Respiratory 16 Rate Respiratory 24 Rate [Anterior Bilateral Throughout] Blood Pressure 125/62 O2 Sat by Pulse 95 Oximetry 10/22/19 10/22/19 10/22/19 09:01 09:56 10:00 Temperature Pulse Rate 82 87 82 Pulse Rate [ Anterior Bilateral Throughout] Pulse Rate [ From Monitor] Respiratory 18 20 20 Rate Respiratory Rate [Anterior Bilateral Throughout] Blood Pressure 118/52 104/47 O2 Sat by Pulse 97 96 Oximetry - Labs CBC & Chem 7: 10/17/19 04:08 10/22/19 05:14 Labs: Abnormal lab results 10/21/19 10/21/19 10/22/19 Range/Units 12:04 17:31 05:14 Creatinine 0.5 L (0.8-1.5) mg/dL Glucose 116 H (75-100) mg/dL POC Glucose 119 H 110 H (70-105) Calcium 7.7 L (8.4-10.2) mg/dL 10/22/19 Range/Units 05:37 Creatinine (0.8-1.5) mg/dL Glucose (75-100) mg/dL POC Glucose 110 H (70-105) Calcium (8.4-10.2) mg/dL
--- NOTE | 2019-10-22 11:52 | Progress Note ---
Assessment and Plan Atrial fibrillation/flutter, spontaneously reverted to sinus rhythm treated with adenosine x1 on 10/15 on IV amiodarone and IV metoprolol Sepsis Severe abdominal pain s/p exploratory laparotomy, abdominal washout, closure of abdominal fascia with wound vac placement on 10/05 s/p abdominal washout with partial colectomy and left colostomy on 10/16 Recent colon resection for bowel perforation following a colonoscopy Atypical chest pain troponins are normal Hx of NC/CAD [facility] 12/2017: PCI of the circumflex and second vessel POBA of the distal LAD occlusion. Left ventricle fraction 45-50%. Tobacco abuse COPD Hypertension Hyperlipidemia Recommend: Continue intravenous metoprolol and intravenous amiodarone for atrial fibrillation suppression while patient remains nothing by mouth. Subjective Date of service: 10/22/19 Principal diagnosis: acute renal failure Interval history: Patient remains intubated on the ventilator. Plan for return to OR today. Stable sinus rhythm on telemetry. Intravenous amiodarone and intravenous metoprolol continues for suppression of paroxysmal Afib. Objective Vital Signs Temp Pulse Pulse Pulse Pulse Resp Resp 10/22/19 11:11 72 10/22/19 10:00 82 20 10/22/19 09:56 87 20 10/22/19 09:01 82 18 10/22/19 08:01 83 16 10/22/19 08:00 99.9 F H 95 H 10/22/19 07:50 84 10/22/19 07:47 84 10/22/19 07:01 82 15 10/22/19 06:01 88 18 10/22/19 05:25 83 10/22/19 05:00 74 20 10/22/19 04:05 77 10/22/19 04:00 71 74 20 10/22/19 03:20 98.8 F 10/22/19 03:00 71 20 10/22/19 02:00 73 20 10/22/19 01:45 81 10/22/19 01:00 74 20 10/22/19 00:05 78 10/22/19 00:00 76 79 20 10/21/19 23:19 86 19 10/21/19 23:00 70 20 10/21/19 22:59 70 10/21/19 22:58 98.8 F 10/21/19 22:00 72 20 20 10/21/19 21:00 75 20 10/21/19 20:00 80 78 21 10/21/19 19:43 97.9 F 10/21/19 19:16 89 10/21/19 19:13 83 10/21/19 19:01 83 18 10/21/19 18:00 85 19 10/21/19 17:00 72 20 10/21/19 16:48 73 10/21/19 16:00 99.9 F H 71 71 20 10/21/19 15:00 76 20 10/21/19 14:59 73 10/21/19 14:00 72 20 10/21/19 13:34 73 10/21/19 13:10 75 10/21/19 13:00 75 25 H 10/21/19 12:01 80 38 H 10/21/19 12:00 99.3 F 72 77 22 Resp Resp BP Pulse Ox 10/22/19 11:11 100/36 97 10/22/19 10:00 104/47 96 10/22/19 09:56 10/22/19 09:01 118/52 97 10/22/19 08:01 125/62 95 10/22/19 08:00 10/22/19 07:50 24 10/22/19 07:47 122/61 99 10/22/19 07:01 122/61 98 10/22/19 06:01 109/48 97 10/22/19 05:25 109/48 10/22/19 05:00 109/48 99 10/22/19 04:05 116/45 98 10/22/19 04:00 116/45 100 10/22/19 03:20 10/22/19 03:00 107/42 100 10/22/19 02:00 109/46 99 10/22/19 01:45 21 10/22/19 01:00 112/45 99 10/22/19 00:05 106/43 98 10/22/19 00:00 112/45 98 10/21/19 23:19 106/43 98 10/21/19 23:00 106/43 99 10/21/19 22:59 117/47 10/21/19 22:58 10/21/19 22:00 108/45 99 10/21/19 21:00 117/47 99 10/21/19 20:00 111/50 96 10/21/19 19:43 10/21/19 19:16 20 10/21/19 19:13 119/48 98 10/21/19 19:01 119/48 97 10/21/19 18:00 101/59 95 10/21/19 17:00 115/51 100 10/21/19 16:48 114/48 100 10/21/19 16:00 114/48 100 10/21/19 15:00 119/55 99 10/21/19 14:59 20 10/21/19 14:00 118/50 99 10/21/19 13:34 124/52 99 10/21/19 13:10 124/52 10/21/19 13:00 124/52 99 10/21/19 12:01 142/65 98 10/21/19 12:00 99 - Physical Examination General: Other (intubated, on the vent) HEENT: Positive: PERRL Neck: Positive: neck supple, trachea midline Abdomen: Positive: Other (abdominal wound vac is in place) Extremities: Present: +1 Edema - Labs and Meds Comprehensive Metabolic Panel 10/22/19 Range/Units 05:14 Sodium 141 (137-145) mmol/L Potassium 4.0 (3.6-5.0) mmol/L Chloride 104.1 (98-107) mmol/L Carbon Dioxide 28 (22-30) mmol/L BUN 17 (9-20) mg/dL Creatinine 0.5 L (0.8-1.5) mg/dL Glucose 116 H (75-100) mg/dL Calcium 7.7 L (8.4-10.2) mg/dL
[2019-10-22] MEDS ORDERED: LACTATED RINGERS 1,000 ML IV SCH (12:00)
--- NOTE | 2019-10-22 12:09 | Progress Note ---
Assessment and Plan 54 y/o male with anastomic leak 10/22: Added diprovan as more sedation was needed. Hopefully once closed and no leaks, patient can be extubated. Cards very concerned about length of time for IV amio. Will discuss with surgery the time frame that gut can be used. 10/21: Will hold on weaning until abdomen is closed, especially knowing mental status is good. Will focus on pain control. Replace electrolytes. Appreciate Surgery recs and detail. Follow up any new recs from cards. Or tomorrow for closure 1. CV-tachycardia but stable BP. Was ok on Amio and Dilt but when BP started dropping, we stopped the dilt. Now rate back up and not controlled on 5. Spoke to nursing about increasing to 10. Continue fluid boluses for BP as needed. Trying not to start pressors if possible. 2. Pulm-stable on Vent. FiO2 down to 45% prior to go to OR. CXR shows right lower lobe airspace disease (10/15). Light green substance in ET tube has stopped. Continue current vent management. Wean once all surgeries are done. 3. GI-Going back to OR again on Tuesday for Washout. 4. Renal- Renal function and output have improved. Will continue to monitor. Had a large volume out that we are actively replacing. This may have added to hypotension this am. 5. Neuro- on rounds, per nursing, patient did not wake up during sedation vacation. Stopping all sedation now. If not able to control rate with drugs, could be related to pain. Spoke to nursing to use PRN pushes to see if this helps HR as well. If patient's mental state does not improve post all surgeries, may need CT head, EEG and neurology evaluation. 6. ID-continues to spike temps. ID following. Defer to them for repeat cultures. Blood has been negative. 7. Electrolytes-Reviewed renal note from yesterday. Overall prognosis is guarded. Will continue to follow. CCT 31 minutes. Subjective Date of service: 10/22/19 Principal diagnosis: acute renal failure Interval history: Had to reintubate this am as patient bit through endotracheal. Anesthesia had to use the glide scope. CXR shows tube in good position. Back to OR today at 1400 Objective Vital Signs - 12hr 10/22/19 10/22/19 10/22/19 01:00 01:45 02:00 Temperature Pulse Rate 74 73 Pulse Rate [ 81 Anterior Bilateral Throughout] Pulse Rate [ From Monitor] Respiratory 20 20 Rate Respiratory 21 Rate [Anterior Bilateral Throughout] Blood Pressure 112/45 109/46 O2 Sat by Pulse 99 99 Oximetry 10/22/19 10/22/19 10/22/19 03:00 03:20 04:00 Temperature 98.8 F Pulse Rate 71 71 Pulse Rate [ Anterior Bilateral Throughout] Pulse Rate [ 74 From Monitor] Respiratory 20 20 Rate Respiratory Rate [Anterior Bilateral Throughout] Blood Pressure 107/42 116/45 O2 Sat by Pulse 100 100 Oximetry 10/22/19 10/22/19 10/22/19 04:05 05:00 05:25 Temperature Pulse Rate 77 74 83 Pulse Rate [ Anterior Bilateral Throughout] Pulse Rate [ From Monitor] Respiratory 20 Rate Respiratory Rate [Anterior Bilateral Throughout] Blood Pressure 116/45 109/48 109/48 O2 Sat by Pulse 98 99 Oximetry 10/22/19 10/22/19 10/22/19 06:01 07:01 07:47 Temperature Pulse Rate 88 82 84 Pulse Rate [ Anterior Bilateral Throughout] Pulse Rate [ From Monitor] Respiratory 18 15 Rate Respiratory Rate [Anterior Bilateral Throughout] Blood Pressure 109/48 122/61 122/61 O2 Sat by Pulse 97 98 99 Oximetry 10/22/19 10/22/19 10/22/19 07:50 08:00 08:01 Temperature 99.9 F H Pulse Rate 95 H 83 Pulse Rate [ 84 Anterior Bilateral Throughout] Pulse Rate [ From Monitor] Respiratory 16 Rate Respiratory 24 Rate [Anterior Bilateral Throughout] Blood Pressure 125/62 O2 Sat by Pulse 95 Oximetry 10/22/19 10/22/19 10/22/19 09:01 09:56 10:00 Temperature Pulse Rate 82 87 82 Pulse Rate [ Anterior Bilateral Throughout] Pulse Rate [ From Monitor] Respiratory 18 20 20 Rate Respiratory Rate [Anterior Bilateral Throughout] Blood Pressure 118/52 104/47 O2 Sat by Pulse 97 96 Oximetry 10/22/19 11:11 Temperature Pulse Rate 72 Pulse Rate [ Anterior Bilateral Throughout] Pulse Rate [ From Monitor] Respiratory Rate Respiratory Rate [Anterior Bilateral Throughout] Blood Pressure 100/36 O2 Sat by Pulse 97 Oximetry Constitutional: alert Eyes: non-icteric ENT: oropharynx moist Neck: supple Effort: normal Ascultation: Bilateral: diminished breath sounds Cardiovascular: regular rate and rhythm Gastrointestinal: tender Integumentary: normal Extremities: no cyanosis Neurologic: normal mental status, non-focal exam Psychiatric: mood appropriate, affect normal CBC and BMP: 10/17/19 04:08 10/22/19 05:14 ABG, PT/INR, D-dimer: ABG POC ABG pH 7.310 (7.35-7.45) L 10/17/19 05:41 ABG pH 7.456 pH Units (7.350-7.450) H 10/19/19 05:00 POC ABG pCO2 52.8 (35-45) H 10/17/19 05:41 ABG pCO2 36.4 mm Hg 10/19/19 05:00 POC ABG pO2 70 (80-105) L 10/17/19 05:41 ABG pO2 78.8 mm Hg (80.0-90.0) L 10/19/19 05:00 POC ABG HCO3 26.6 (22-26 mml/L) 10/17/19 05:41 POC ABG Total CO2 28 (23-27mmol/L) 10/17/19 05:41 POC ABG O2 Sat 92 10/17/19 05:41 ABG O2 Saturation 97.0 % (95.0-99.0) 10/19/19 05:00 Abnormal lab findings: Abnormal Labs 10/06/19 10/06/19 10/07/19 05:36 05:36 05:54 WBC 21.8 H 21.5 H RBC 3.55 L Hgb 10.9 L Hct 32.7 L RDW Plt Count Seg Neuts % (Manual) 91.0 H Lymphocytes % (Manual) 2.0 L Seg Neutrophils # Man 19.8 H Lymphocytes # (Manual) 0.4 L Monocytes # (Manual) 1.1 H POC ABG pH ABG pH POC ABG pCO2 POC ABG pO2 ABG pO2 ABG HCO3 ABG Base Excess ABG Hemoglobin Oxyhemoglobin Sodium 135 L Potassium Chloride 95.9 L Carbon Dioxide BUN Creatinine 0.7 L Glucose POC Glucose Calcium Phosphorus Magnesium Direct Bilirubin AST C-Reactive Protein Serum Total Protein Total Protein 5.7 L Albumin 2.5 L Prealbumin Obztr-1-Yfyqbtutj Bxpia-6-Kkccrholv Gamma Globulins PEP Interpretation Urine Creatinine Urine Total Protein Digoxin Crossmatch 10/07/19 10/09/19 10/09/19 05:54 10:52 10:52 WBC 16.6 H RBC Hgb Hct RDW Plt Count 498 H Seg Neuts % (Manual) 93.0 H Lymphocytes % (Manual) 5.0 L Seg Neutrophils # Man 15.4 H Lymphocytes # (Manual) 0.8 L Monocytes # (Manual) POC ABG pH ABG pH POC ABG pCO2 POC ABG pO2 ABG pO2 ABG HCO3 ABG Base Excess ABG Hemoglobin Oxyhemoglobin Sodium Potassium Chloride 97.9 L Carbon Dioxide 20 L D BUN 23 H Creatinine 1.7 H D Glucose 109 H POC Glucose Calcium 8.1 L Phosphorus Magnesium Direct Bilirubin AST C-Reactive Protein Serum Total Protein Total Protein Albumin Prealbumin Pceir-9-Ualvxofxb Dgvzk-3-Bmkkjipbf Gamma Globulins PEP Interpretation Urine Creatinine Urine Total Protein Digoxin Crossmatch 10/09/19 10/10/19 10/10/19 17:23 05:30 05:30 WBC 14.6 H RBC Hgb 11.1 L Hct 33.5 L RDW Plt Count 527 H Seg Neuts % (Manual) Lymphocytes % (Manual) Seg Neutrophils # Man Lymphocytes # (Manual) Monocytes # (Manual) POC ABG pH ABG pH POC ABG pCO2 POC ABG pO2 ABG pO2 ABG HCO3 ABG Base Excess ABG Hemoglobin Oxyhemoglobin Sodium 130 L D Potassium 5.1 H Chloride 90.0 L 91.0 L Carbon Dioxide 20 L 20 L BUN 27 H 35 H Creatinine 1.9 H 2.0 H Glucose 104 H POC Glucose Calcium Phosphorus Magnesium Direct Bilirubin AST C-Reactive Protein Serum Total Protein Total Protein Albumin Prealbumin Wpksf-8-Bmgjikeni Dgaxo-0-Neycrmgpz Gamma Globulins PEP Interpretation Urine Creatinine Urine Total Protein Digoxin Crossmatch 10/10/19 10/10/19 10/11/19 08:33 08:44 05:41 WBC 13.2 H RBC Hgb 11.3 L Hct 33.8 L RDW 15.3 H Plt Count 543 H Seg Neuts % (Manual) Lymphocytes % (Manual) Seg Neutrophils # Man Lymphocytes # (Manual) Monocytes # (Manual) POC ABG pH ABG pH POC ABG pCO2 POC ABG pO2 ABG pO2 ABG HCO3 ABG Base Excess ABG Hemoglobin Oxyhemoglobin Sodium Potassium Chloride Carbon Dioxide BUN Creatinine Glucose 113 H POC Glucose 117 H Calcium Phosphorus Magnesium Direct Bilirubin AST C-Reactive Protein Serum Total Protein Total Protein Albumin Prealbumin Hssqc-1-Ipyqdnxwv Clvrt-9-Johinbgng Gamma Globulins PEP Interpretation Urine Creatinine Urine Total Protein Digoxin Crossmatch 10/11/19 10/11/19 10/11/19 05:41 06:23 06:23 WBC RBC Hgb Hct RDW Plt Count Seg Neuts % (Manual) Lymphocytes % (Manual) Seg Neutrophils # Man Lymphocytes # (Manual) Monocytes # (Manual) POC ABG pH ABG pH POC ABG pCO2 POC ABG pO2 ABG pO2 ABG HCO3 ABG Base Excess ABG Hemoglobin Oxyhemoglobin Sodium 134 L Potassium Chloride 96.3 L Carbon Dioxide BUN 37 H Creatinine Glucose 58 L POC Glucose Calcium Phosphorus 4.90 H Magnesium Direct Bilirubin AST C-Reactive Protein Serum Total Protein Total Protein Albumin Prealbumin Lsajr-0-Pdsdqutfk Bnxoz-2-Lnpjmkpuz Gamma Globulins PEP Interpretation Urine Creatinine 118.2 H 116.8 H Urine Total Protein 105 H 104 H Digoxin Crossmatch 10/11/19 10/12/19 10/12/19 09:00 06:09 06:09 WBC 13.8 H RBC 3.39 L Hgb 10.2 L Hct 30.9 L RDW 15.5 H Plt Count 459 H Seg Neuts % (Manual) Lymphocytes % (Manual) Seg Neutrophils # Man Lymphocytes # (Manual) Monocytes # (Manual) POC ABG pH ABG pH POC ABG pCO2 POC ABG pO2 ABG pO2 ABG HCO3 ABG Base Excess ABG Hemoglobin Oxyhemoglobin Sodium 131 L Potassium Chloride 96.2 L Carbon Dioxide 21 L BUN 43 H Creatinine Glucose 72 L POC Glucose Calcium Phosphorus Magnesium Direct Bilirubin AST C-Reactive Protein Serum Total Protein 5.2 L Total Protein Albumin 1.9 L Prealbumin Rqkmv-5-Iaynzcgoi 0.9 H Odgcn-2-Wdwujinrd 1.0 H Gamma Globulins 0.7 L PEP Interpretation see below H Urine Creatinine Urine Total Protein Digoxin Crossmatch 10/12/19 10/12/19 10/12/19 08:20 09:30 09:30 WBC RBC Hgb Hct RDW Plt Count Seg Neuts % (Manual) Lymphocytes % (Manual) Seg Neutrophils # Man Lymphocytes # (Manual) Monocytes # (Manual) POC ABG pH ABG pH POC ABG pCO2 POC ABG pO2 63 L ABG pO2 ABG HCO3 ABG Base Excess ABG Hemoglobin Oxyhemoglobin Sodium Potassium Chloride Carbon Dioxide BUN Creatinine Glucose POC Glucose Calcium Phosphorus Magnesium 2.50 H Direct Bilirubin 0.3 H AST C-Reactive Protein Serum Total Protein Total Protein 5.1 L Albumin 2.2 L Prealbumin Ibxej-0-Lbxdvgaah Nmieu-7-Wwlrdnivk Gamma Globulins PEP Interpretation Urine Creatinine Urine Total Protein Digoxin Crossmatch 10/13/19 10/13/19 10/13/19 04:20 04:20 13:20 WBC 15.7 H RBC 3.64 L Hgb 10.9 L Hct 33.1 L RDW 15.8 H Plt Count 488 H Seg Neuts % (Manual) Lymphocytes % (Manual) Seg Neutrophils # Man Lymphocytes # (Manual) Monocytes # (Manual) POC ABG pH ABG pH POC ABG pCO2 POC ABG pO2 ABG pO2 ABG HCO3 ABG Base Excess ABG Hemoglobin Oxyhemoglobin Sodium Potassium Chloride Carbon Dioxide BUN 28 H Creatinine Glucose POC Glucose Calcium Phosphorus Magnesium Direct Bilirubin AST C-Reactive Protein Serum Total Protein Total Protein Albumin Prealbumin Nlfzi-1-Fbjsrsvct Bgfav-0-Rmkuatshm Gamma Globulins PEP Interpretation Urine Creatinine Urine Total Protein Digoxin Crossmatch See Detail 10/13/19 10/13/19 10/14/19 18:24 20:05 04:47 WBC 24.2 H RBC Hgb 10.9 L Hct 34.2 L RDW 17.0 H Plt Count 442 H Seg Neuts % (Manual) Lymphocytes % (Manual) Seg Neutrophils # Man Lymphocytes # (Manual) Monocytes # (Manual) POC ABG pH ABG pH 7.180 L* 7.278 L POC ABG pCO2 POC ABG pO2 ABG pO2 130.7 H ABG HCO3 ABG Base Excess -6.5 L -6.5 L ABG Hemoglobin 12.2 L 12.3 L Oxyhemoglobin 92.9 L Sodium Potassium Chloride Carbon Dioxide BUN Creatinine Glucose POC Glucose Calcium Phosphorus Magnesium Direct Bilirubin AST C-Reactive Protein Serum Total Protein Total Protein Albumin Prealbumin Oktcb-6-Gadltnfce Dpwva-1-Mstluhysx Gamma Globulins PEP Interpretation Urine Creatinine Urine Total Protein Digoxin Crossmatch 10/14/19 10/14/19 10/14/19 04:47 05:40 10:14 WBC RBC Hgb Hct RDW Plt Count Seg Neuts % (Manual) Lymphocytes % (Manual) Seg Neutrophils # Man Lymphocytes # (Manual) Monocytes # (Manual) POC ABG pH ABG pH POC ABG pCO2 POC ABG pO2 ABG pO2 76.3 L ABG HCO3 19.1 L ABG Base Excess -5.8 L ABG Hemoglobin 10.9 L Oxyhemoglobin 93.4 L Sodium Potassium 5.1 H D Chloride 109.2 H Carbon Dioxide 17 L BUN 38 H Creatinine 1.8 H D Glucose 104 H POC Glucose Calcium 7.4 L Phosphorus 5.60 H Magnesium Direct Bilirubin AST C-Reactive Protein Serum Total Protein Total Protein Albumin Prealbumin Fabzm-4-Tcrsawnjk Ixngs-6-Qvdoxppyz Gamma Globulins PEP Interpretation Urine Creatinine Urine Total Protein Digoxin Crossmatch 10/14/19 10/15/19 10/15/19 23:46 04:32 04:32 WBC 15.5 H RBC 2.89 L Hgb 8.8 L Hct 27.3 L D RDW 16.6 H Plt Count Seg Neuts % (Manual) Lymphocytes % (Manual) Seg Neutrophils # Man Lymphocytes # (Manual) Monocytes # (Manual) POC ABG pH ABG pH POC ABG pCO2 POC ABG pO2 ABG pO2 ABG HCO3 ABG Base Excess ABG Hemoglobin Oxyhemoglobin Sodium 147 H Potassium Chloride 114.0 H Carbon Dioxide 19 L BUN 42 H Creatinine Glucose 112 H POC Glucose 113 H Calcium 7.3 L Phosphorus Magnesium Direct Bilirubin AST 72 H C-Reactive Protein 30.60 H Serum Total Protein Total Protein 4.0 L D Albumin 1.7 L Prealbumin 0.030 L Uyjuj-4-Nxfznemgp Ifgdi-2-Uoyplbgrj Gamma Globulins PEP Interpretation Urine Creatinine Urine Total Protein Digoxin Crossmatch 10/15/19 10/15/19 10/15/19 05:30 12:08 17:23 WBC RBC Hgb Hct RDW Plt Count Seg Neuts % (Manual) Lymphocytes % (Manual) Seg Neutrophils # Man Lymphocytes # (Manual) Monocytes # (Manual) POC ABG pH ABG pH 7.296 L POC ABG pCO2 POC ABG pO2 ABG pO2 114.7 H ABG HCO3 ABG Base Excess -3.7 L ABG Hemoglobin 8.9 L Oxyhemoglobin Sodium Potassium Chloride Carbon Dioxide BUN Creatinine Glucose POC Glucose 106 H 106 H Calcium Phosphorus Magnesium Direct Bilirubin AST C-Reactive Protein Serum Total Protein Total Protein Albumin Prealbumin Yalnw-4-Mwmqqrvao Njdqz-8-Cnpknqqaq Gamma Globulins PEP Interpretation Urine Creatinine Urine Total Protein Digoxin Crossmatch 10/16/19 10/16/1910/16/19 00:07 04:44 05:24 WBC RBC Hgb Hct RDW Plt Count Seg Neuts % (Manual) Lymphocytes % (Manual) Seg Neutrophils # Man Lymphocytes # (Manual) Monocytes # (Manual) POC ABG pH ABG pH POC ABG pCO2 POC ABG pO2 ABG pO2 ABG HCO3 ABG Base Excess ABG Hemoglobin Oxyhemoglobin Sodium 150 H Potassium Chloride 115.8 H Carbon Dioxide BUN 35 H Creatinine Glucose 129 H POC Glucose 119 H 129 H Calcium 7.3 L Phosphorus 1.80 L D Magnesium Direct Bilirubin AST C-Reactive Protein Serum Total Protein Total Protein Albumin Prealbumin Surap-3-Iryvfouuh Xweta-1-Nmvlojque Gamma Globulins PEP Interpretation Urine Creatinine Urine Total Protein Digoxin Crossmatch 10/16/19 10/16/19 10/16/19 06:53 09:20 11:58 WBC 14.6 H RBC 2.70 L Hgb 8.1 L Hct 25.2 L RDW 16.7 H Plt Count Seg Neuts % (Manual) 79.0 H Lymphocytes % (Manual) 4.0 L Seg Neutrophils # Man 11.5 H Lymphocytes # (Manual) 0.6 L Monocytes # (Manual) POC ABG pH ABG pH POC ABG pCO2 47.0 H POC ABG pO2 ABG pO2 ABG HCO3 ABG Base Excess ABG Hemoglobin Oxyhemoglobin Sodium Potassium Chloride Carbon Dioxide BUN Creatinine Glucose POC Glucose Calcium Phosphorus Magnesium Direct Bilirubin AST C-Reactive Protein Serum Total Protein Total Protein Albumin Prealbumin Rvmuo-8-Ybtkajgce Vnfor-2-Fftgtqzuz Gamma Globulins PEP Interpretation Urine Creatinine Urine Total Protein Digoxin Crossmatch See Detail 10/16/19 10/16/19 10/16/19 15:23 17:50 23:58 WBC RBC Hgb Hct RDW Plt Count Seg Neuts % (Manual) Lymphocytes % (Manual) Seg Neutrophils # Man Lymphocytes # (Manual) Monocytes # (Manual) POC ABG pH ABG pH POC ABG pCO2 POC ABG pO2 ABG pO2 ABG HCO3 ABG Base Excess ABG Hemoglobin Oxyhemoglobin Sodium Potassium Chloride Carbon Dioxide BUN Creatinine Glucose POC Glucose 221 H 201 H 179 H Calcium Phosphorus Magnesium Direct Bilirubin AST C-Reactive Protein Serum Total Protein Total Protein Albumin Prealbumin Epjyy-3-Zfxmxntre Lhewx-0-Lbblftzba Gamma Globulins PEP Interpretation Urine Creatinine Urine Total Protein Digoxin Crossmatch 10/17/19 10/17/19 10/17/19 04:08 04:08 05:41 WBC 22.3 H RBC 3.35 L Hgb 10.0 L Hct 31.2 L D RDW 16.1 H Plt Count Seg Neuts % (Manual) Lymphocytes % (Manual) Seg Neutrophils # Man Lymphocytes # (Manual) Monocytes # (Manual) POC ABG pH 7.310 L ABG pH POC ABG pCO2 52.8 H POC ABG pO2 70 L ABG pO2 ABG HCO3 ABG Base Excess ABG Hemoglobin Oxyhemoglobin Sodium 147 H Potassium Chloride 114.9 H Carbon Dioxide BUN 36 H Creatinine Glucose 165 H POC Glucose Calcium 6.9 L Phosphorus 2.20 L D Magnesium Direct Bilirubin AST C-Reactive Protein Serum Total Protein Total Protein Albumin Prealbumin Adrte-2-Bjnkioaqw Pyccx-7-Fpdrlziwn Gamma Globulins PEP Interpretation Urine Creatinine Urine Total Protein Digoxin Crossmatch 10/17/19 10/17/19 10/17/19 05:42 11:33 18:17 WBC RBC Hgb Hct RDW Plt Count Seg Neuts % (Manual) Lymphocytes % (Manual) Seg Neutrophils # Man Lymphocytes # (Manual) Monocytes # (Manual) POC ABG pH ABG pH POC ABG pCO2 POC ABG pO2 ABG pO2 ABG HCO3 ABG Base Excess ABG Hemoglobin Oxyhemoglobin Sodium Potassium Chloride Carbon Dioxide BUN Creatinine Glucose POC Glucose 149 H 154 H 163 H Calcium Phosphorus Magnesium Direct Bilirubin AST C-Reactive Protein Serum Total Protein Total Protein Albumin Prealbumin Tbakt-4-Cqaqwjrtq Nukcf-3-Mesjgvgzk Gamma Globulins PEP Interpretation Urine Creatinine Urine Total Protein Digoxin Crossmatch 10/17/19 10/18/19 10/18/19 23:34 03:29 04:50 WBC RBC Hgb Hct RDW Plt Count Seg Neuts % (Manual) Lymphocytes % (Manual) Seg Neutrophils # Man Lymphocytes # (Manual) Monocytes # (Manual) POC ABG pH ABG pH POC ABG pCO2 POC ABG pO2 ABG pO2 78.8 L ABG HCO3 ABG Base Excess ABG Hemoglobin 8.8 L Oxyhemoglobin Sodium Potassium Chloride 111.8 H Carbon Dioxide BUN 27 H Creatinine 0.6 L Glucose 140 H POC Glucose 135 H Calcium 7.1 L Phosphorus 1.80 L Magnesium Direct Bilirubin AST C-Reactive Protein Serum Total Protein Total Protein Albumin Prealbumin Tfrae-8-Djmtuhizd Pwbxr-5-Rseguqzju Gamma Globulins PEP Interpretation Urine Creatinine Urine Total Protein Digoxin Crossmatch 10/18/19 10/18/19 10/18/19 05:45 11:19 18:26 WBC RBC Hgb Hct RDW Plt Count Seg Neuts % (Manual) Lymphocytes % (Manual) Seg Neutrophils # Man Lymphocytes # (Manual) Monocytes # (Manual) POC ABG pH ABG pH POC ABG pCO2 POC ABG pO2 ABG pO2 ABG HCO3 ABG Base Excess ABG Hemoglobin Oxyhemoglobin Sodium Potassium Chloride Carbon Dioxide BUN Creatinine Glucose POC Glucose 145 H 152 H 125 H Calcium Phosphorus Magnesium Direct Bilirubin AST C-Reactive Protein Serum Total Protein Total Protein Albumin Prealbumin Tglhl-5-Ubuznsjpu Gtghf-6-Wuaqbzyar Gamma Globulins PEP Interpretation Urine Creatinine Urine Total Protein Digoxin Crossmatch 10/18/19 10/19/19 10/19/19 23:27 04:21 04:21 WBC RBC Hgb Hct RDW Plt Count Seg Neuts % (Manual) Lymphocytes % (Manual) Seg Neutrophils # Man Lymphocytes # (Manual) Monocytes # (Manual) POC ABG pH ABG pH POC ABG pCO2 POC ABG pO2 ABG pO2 ABG HCO3 ABG Base Excess ABG Hemoglobin Oxyhemoglobin Sodium Potassium Chloride 108.4 H Carbon Dioxide BUN 22 H Creatinine 0.5 L Glucose 123 H POC Glucose 127 H Calcium 7.4 L Phosphorus 1.80 L Magnesium Direct Bilirubin AST C-Reactive Protein Serum Total Protein Total Protein Albumin Prealbumin Xsenj-9-Ngezzsgxk Lcbzv-3-Pqnxvcsqt Gamma Globulins PEP Interpretation Urine Creatinine Urine Total Protein Digoxin 0.7 L Crossmatch 10/19/19 10/19/19 10/19/19 05:00 05:35 11:26 WBC RBC Hgb Hct RDW Plt Count Seg Neuts % (Manual) Lymphocytes % (Manual) Seg Neutrophils # Man Lymphocytes # (Manual) Monocytes # (Manual) POC ABG pH ABG pH 7.456 H POC ABG pCO2 POC ABG pO2 ABG pO2 78.8 L ABG HCO3 ABG Base Excess ABG Hemoglobin 5.6 L Oxyhemoglobin Sodium Potassium Chloride Carbon Dioxide BUN Creatinine Glucose POC Glucose 124 H 111 H Calcium Phosphorus Magnesium Direct Bilirubin AST C-Reactive Protein Serum Total Protein Total Protein Albumin Prealbumin Pykyz-5-Bthajtymz Dlztg-7-Twmemvepg Gamma Globulins PEP Interpretation Urine Creatinine Urine Total Protein Digoxin Crossmatch 12/05/0210/20/19 10/20/19 23:23 04:50 05:17 WBC RBC Hgb Hct RDW Plt Count Seg Neuts % (Manual) Lymphocytes % (Manual) Seg Neutrophils # Man Lymphocytes # (Manual) Monocytes # (Manual) POC ABG pH ABG pH POC ABG pCO2 POC ABG pO2 ABG pO2 ABG HCO3 ABG Base Excess ABG Hemoglobin Oxyhemoglobin Sodium Potassium Chloride 108.1 H Carbon Dioxide BUN Creatinine 0.4 L Glucose 134 H POC Glucose 129 H 123 H Calcium 7.1 L Phosphorus Magnesium Direct Bilirubin AST C-Reactive Protein Serum Total Protein Total Protein Albumin Prealbumin Tycck-0-Rchrewugw Mqtvh-7-Wsrseehgu Gamma Globulins PEP Interpretation Urine Creatinine Urine Total Protein Digoxin Crossmatch 10/20/19 10/20/19 10/21/19 11:40 19:06 05:08 WBC RBC Hgb Hct RDW Plt Count Seg Neuts % (Manual) Lymphocytes % (Manual) Seg Neutrophils # Man Lymphocytes # (Manual) Monocytes # (Manual) POC ABG pH ABG pH POC ABG pCO2 POC ABG pO2 ABG pO2 ABG HCO3 ABG Base Excess ABG Hemoglobin Oxyhemoglobin Sodium Potassium Chloride Carbon Dioxide BUN Creatinine Glucose POC Glucose 139 H 117 H 131 H Calcium Phosphorus Magnesium Direct Bilirubin AST C-Reactive Protein Serum Total Protein Total Protein Albumin Prealbumin Zkzez-5-Wurhtdsnc Wzefq-6-Yyquwocah Gamma Globulins PEP Interpretation Urine Creatinine Urine Total Protein Digoxin Crossmatch 10/21/19 10/21/19 10/21/19 05:30 12:04 17:31 WBC RBC Hgb Hct RDW Plt Count Seg Neuts % (Manual) Lymphocytes % (Manual) Seg Neutrophils # Man Lymphocytes # (Manual) Monocytes # (Manual) POC ABG pH ABG pH POC ABG pCO2 POC ABG pO2 ABG pO2 ABG HCO3 ABG Base Excess ABG Hemoglobin Oxyhemoglobin Sodium Potassium Chloride 107.8 H Carbon Dioxide BUN Creatinine 0.5 L Glucose 119 H POC Glucose 119 H 110 H Calcium 7.6 L Phosphorus Magnesium Direct Bilirubin AST C-Reactive Protein Serum Total Protein Total Protein Albumin Prealbumin Bovty-4-Fvoscwtsk Oilei-7-Dpvgfwseg Gamma Globulins PEP Interpretation Urine Creatinine Urine Total Protein Digoxin Crossmatch 10/22/19 10/22/19 05:14 05:37 WBC RBC Hgb Hct RDW Plt Count Seg Neuts % (Manual) Lymphocytes % (Manual) Seg Neutrophils # Man Lymphocytes # (Manual) Monocytes # (Manual) POC ABG pH ABG pH POC ABG pCO2 POC ABG pO2 ABG pO2 ABG HCO3 ABG Base Excess ABG Hemoglobin Oxyhemoglobin Sodium Potassium Chloride Carbon Dioxide BUN Creatinine 0.5 L Glucose 116 H POC Glucose 110 H Calcium 7.7 L Phosphorus Magnesium Direct Bilirubin AST C-Reactive Protein Serum Total Protein Total Protein Albumin Prealbumin Hbttq-0-Zcjnwouoh Onzaw-8-Hgohakreo Gamma Globulins PEP Interpretation Urine Creatinine Urine Total Protein Digoxin Crossmatch
[2019-10-22] MEDS ORDERED: ROCURONIUM 50 MG/5 ML INJ IV ONE (14:10)
[2019-10-22] MEDS ORDERED: SODIUM CHLORIDE 0.9% IRR 1,500 ML BOTTLE IR ONE (17:20)
--- NOTE | 2019-10-22 18:06 | Post Operative Note ---
Date of procedure: 10/22/19 (dictation:[id number]) Pre-op diagnosis: intra-abdominal infection Post-op diagnosis: same Findings: contamination from the sigmoid stump closure site. Procedure: Abdominal washout. Closure of abdominal fascia. Wound vac placement IVF 100cc EBL<20cc UOP 200cc Anesthesia: JOY Surgeon: ANKITA GAO [employer] Finger Buff Material: TOÑO ROMO Estimated blood loss: minimal Pathology: none Condition: stable Disposition: ICU
[2019-10-22] MEDS ORDERED: TOTAL PARENTERAL NUTRITION 2,400 ML IV SCH (20:00)
[2019-10-22] MEDS: ENOXAPARIN 40 MG/0.4 ML INJ SUB-Q SCH (21:34)
[2019-10-23] MEDS: PROPOFOL 1,000 MG/100 ML BOTTLE IV SCH ×5 (00:43→20:15)
[2019-10-23] MEDS: IPRATROPIUM/ALBUTEROL SULFATE 3 ML AMPUL.NEB IH SCH ×4 (01:28→20:00)
[2019-10-23] MEDS: fentaNYL DRIP Premix 2,000 MCG/100 ML BAG IV SCH ×6 (01:36→20:48)
[2019-10-23] MEDS: METOPROLOL TARTRATE 5 MG/5 ML INJ IV SCH ×3 (05:01→21:54)
[2019-10-23 05:04] LABS: ABG Base Excess 3.4 mmol/L (-2.0-3.0); ABG HCO3 28.7 mmol/L (20.0-26.0); ABG Methemoglobin 0.5 % (0.0-1.5); ABG Oxygen Saturation 96.6 % (95.0-99.0); ABG PCO2 48.4 mm Hg; ABG PH 7.39 pH Units (7.350-7.450); ABG PO2 68.9 mm Hg (80.0-90.0)
[2019-10-23] MEDS: INSULIN LISPRO 100 UNIT/ML SUB-Q SCH ×3 (05:06→18:10)
[2019-10-23] MEDS: PIPERACIL/TAZOBACTA 4.5/NS 100 4.5 GM/100 ML VIAL IV SCH ×3 (05:10→17:23)
[2019-10-23 05:52] LABS: Basophils % (Auto) 0.1 % (0.0-1.8); Eosinophils % (Auto) 0.2 % (0.0-4.3); Hematocrit 21.5 % (35.5-45.6); Lymphocytes # (Auto) 0.9 K/mm3 (1.2-5.4); Lymphocytes % (Auto) 4.9 % (13.4-35.0); Mean Corpuscular HGB Conc 33 % (32-34); Mean Corpuscular Volume 92 fl (84-94); Monocytes # (Auto) 1.5 K/mm3 (0.0-0.8); Monocytes % (Auto) 8.1 % (0.0-7.3); Platelet Count 301 K/mm3 (140-440); Red Blood Count 2.33 M/mm3 (3.65-5.03); Red Cell Distribution Width 16.2 % (13.2-15.2)
[2019-10-23] MEDS: ARFORMOTEROL 15 MCG/2 ML NEBU IH SCH ×2 (07:44→20:00)
[2019-10-23] MEDS: BUDESONIDE 0.5 MG/2 ML NEBU IH SCH ×2 (07:44→20:00)
--- NOTE | 2019-10-23 08:12 | Progress Note ---
Assessment and Plan Assessment and plan: 54 yo male with hx of CAD, HI, emphysema, COPD who presented with prolonged complicated course as a result of a bowel perforation. On admission, it was reported that a portion of his intestines protruded through his wound after severe cough. He has had multiple surgeries since admission. Dehiscence of closure of fascia * Went to OR for ex lap with closure of abdominal wall and wound vac placement ( 10/05) * Continued to decline with possible Air vs fluid, 10/10/19 IR went in and placed two drains, Noted to have possible fecal material * Returned to the OR 10/13/19 due to concern for intra-abdominal infection and was found to have with heavy contamination of abdomen patent had disruption of bowel anastomosis, abdominal washout, abthera placement and colon stapled transection and left bowel enterotomy from anastomosis completely open * Returned to OR on 10/16/19 for abdominal washout, Partial Omentectomy, Partial Colectomy, Colostomy Creation and AbThera Placement * Status post washout 10/23 and wound VAC placement. * cont wound care Severe sepsis secondary to bowel leak at anastomosis site/PNA -cont IV zosyn and fluconazole -surgical culture positive for enterococcus duras -blood cultures neg Acute Respiratory failure with hypoxia on MV > 96 hrs -on MV support -tolerating cpap trials Left lower lobe pneumonia -Continue IV antibiotic -CTA chest showed left lower lobe consolidation with pleural effusion GUILLERMO on CRF -probably ATN due to sepsis -Improving, will monitor -SPEP and UPEP pending -No hydronephrosis on CT Severe Metabolic acidosis -Improved Acute Toxic Metabolic Encephalopathy/Delirium Tremens -Started on CIWA protocol due to hx of ETOH abuse, 6packs a day -Head CT scan negative for acute findings, pt awake, not confused and obeys comm ands Tobacco abuse/dependence Smoking cessation counseling performed for 10 minutes, nicotine patches when necessary Hyperkalemia -Resolved Hyponatremia, now hypernatremia -Improved -IVF d/francoise Acute blood loss anemia -H/H stable -Continue to monitor H&H and transfuse for hb<7 SVT, Atrial fib/flutter with RVR -treated with adenosine x1 -on IV amiodarone drip and PRN IV Lopressor. Off IV digoxin and cardizem drip -HR currently controlled -Cardiology following Hypotension -Off esmolol drip -s/p IV fluid boluses, BP stable Hypophosphatemia -will monitor level Hx of Hypertension -Stable Hyperlipidemia -stable Atypical chest pain -probably secondary to pneumonitis -troponin levels neg Hx of HI/CAD -s/p PCI of the circumflex and second vessel POBA of the distal LAD occlusion. Left ventricle fraction of 45-50%. Morbid obesity with BMI of 45.4 -Lifestyle modification recommended COPD -Stable -cont neb tx Moderate Protein calorie malnutrition secondary to surgery -On TPN -Nutrition following Tobacco abuse -Cessation recommended Morbid obesity with BMI of 45.4 -Lifestyle modification recommended Disp: Prognosis is guarded. The goal will be to have patient go to a rehab facility after he is extubated. His insurance does not cover LTAC. It is [employer] medical insurance Critical time spent: 35 mins History Interval history: No fevers No vomiting no seizure-like activity No diarrhea No agitation No obvious discomfort Hospitalist Physical - Physical exam Narrative exam: General appearance: Present: no acute distress, obese - EENT Eyes: Present: PERRL ENT: other (pt is intubated ) - Neck Neck: Present: supple - Respiratory Respiratory effort: normal Respiratory: bilateral: diminished, wheezing - Cardiovascular Rhythm: regular Heart Sounds: Present: S1 & S2 - Extremities Extremity abnormal: edema (in BLE, BUE) - Abdominal General gastrointestinal: soft, hypoactive bowel sounds, other (surgical wounds clean. drain and colostomy bag noted) - Psychiatric Psychiatric: other (unable to assess due to AMS) - Neurologic Neurologic: moves all extremities - Constitutional Vitals: Temp Pulse Resp BP Pulse Ox 98.4 F 66 20 101/40 98 10/23/19 08:00 10/23/19 07:46 10/23/19 07:45 10/23/19 07:46 10/23/19 07:46 General appearance: Present: no acute distress, obese Results - Labs CBC & Chem 7: 11/30/19 07:08 11/30/19 07:08 Labs: Laboratory Last Values WBC 18.3 K/mm3 (4.5-11.0) H 10/23/19 05:15 RBC 2.33 M/mm3 (3.65-5.03) L 10/23/19 05:15 Hgb 7.0 gm/dl (11.8-15.2) L 10/23/19 05:15 Hct 21.5 % (35.5-45.6) L 10/23/19 05:15 MCV 92 fl (84-94) 10/23/19 05:15 MCH 30 pg (28-32) 10/23/19 05:15 MCHC 33 % (32-34) 10/23/19 05:15 RDW 16.2 % (13.2-15.2) H 10/23/19 05:15 Plt Count 301 K/mm3 (140-440) 10/23/19 05:15 Lymph % (Auto) 4.9 % (13.4-35.0) L 10/23/19 05:15 [place] % (Auto) 8.1 % (0.0-7.3) H 10/23/19 05:15 Eos % (Auto) 0.2 % (0.0-4.3) 10/23/19 05:15 Baso % (Auto) 0.1 % (0.0-1.8) 10/23/19 05:15 Lymph # 0.9 K/mm3 (1.2-5.4) L 10/23/19 05:15 [place] # 1.5 K/mm3 (0.0-0.8) H 10/23/19 05:15 Eos # 0.0 K/mm3 (0.0-0.4) 10/23/19 05:15 Baso # 0.0 K/mm3 (0.0-0.1) 10/23/19 05:15 Add Manual Diff Complete 10/16/19 09:20 Total Counted 100 10/16/19 09:20 Seg Neutrophils % 86.7 % (40.0-70.0) H 10/23/19 05:15 Seg Neuts % (Manual) 79.0 % (40.0-70.0) H 10/16/19 09:20 Band Neutrophils % 12.0 % 10/16/19 09:20 Lymphocytes % (Manual) 4.0 % (13.4-35.0) L 10/16/19 09:20 Reactive Lymphs % (Man) 0 % 10/16/19 09:20 Monocytes % (Manual) 2.0 % (0.0-7.3) 10/16/19 09:20 Eosinophils % (Manual) 0 % (0.0-4.3) 10/16/19 09:20 Basophils % (Manual) 0 % (0.0-1.8) 10/16/19 09:20 Metamyelocytes % 2.0 % 10/16/19 09:20 Myelocytes % 1.0 % 10/16/19 09:20 Promyelocytes % 0 % 10/16/19 09:20 Blast Cells % 0 % 10/16/19 09:20 Nucleated RBC % Not Reportable 10/16/19 09:20 Seg Neutrophils # 15.9 K/mm3 (1.8-7.7) H 10/23/19 05:15 Seg Neutrophils # Man 11.5 K/mm3 (1.8-7.7) H 10/16/19 09:20 Band Neutrophils # 1.8 K/mm3 10/16/19 09:20 Lymphocytes # (Manual) 0.6 K/mm3 (1.2-5.4) L 10/16/19 09:20 Abs React Lymphs (Man) 0.0 K/mm3 10/16/19 09:20 Monocytes # (Manual) 0.3 K/mm3 (0.0-0.8) 10/16/19 09:20 Eosinophils # (Manual) 0.0 K/mm3 (0.0-0.4) 10/16/19 09:20 Basophils # (Manual) 0.0 K/mm3 (0.0-0.1) 10/16/19 09:20 Metamyelocytes # 0.3 K/mm3 10/16/19 09:20 Myelocytes # 0.1 K/mm3 10/16/19 09:20 Promyelocytes # 0.0 K/mm3 10/16/19 09:20 Blast Cells # 0.0 K/mm3 10/16/19 09:20 WBC Morphology Not Reportable 10/16/19 09:20 Hypersegmented Neuts Not Reportable 10/16/19 09:20 Hyposegmented Neuts Not Reportable 10/16/19 09:20 Hypogranular Neuts Not Reportable 10/16/19 09:20 Smudge Cells Not Reportable 10/16/19 09:20 Toxic Granulation Not Reportable 10/16/19 09:20 Toxic Vacuolation Not Reportable 10/16/19 09:20 Dohle Bodies Not Reportable 10/16/19 09:20 Pelger-Huet Anomaly Not Reportable 10/16/19 09:20 Andres Rods Not Reportable 10/16/19 09:20 Platelet Estimate Consistent w auto 10/16/19 09:20 Clumped Platelets Not Reportable 10/16/19 09:20 Plt Clumps, EDTA Not Reportable 10/16/19 09:20 Large Platelets Not Reportable 10/16/19 09:20 Giant Platelets Not Reportable 10/16/19 09:20 Platelet Satelliting Not Reportable 10/16/19 09:20 Plt Morphology Comment Not Reportable 10/16/19 09:20 RBC Morphology Not Reportable 10/16/19 09:20 Dimorphic RBCs Not Reportable 10/16/19 09:20 Polychromasia Few 10/16/19 09:20 Hypochromasia Few 10/16/19 09:20 Poikilocytosis Not Reportable 10/16/19 09:20 Anisocytosis Not Reportable 10/16/19 09:20 Microcytosis Not Reportable 10/16/19 09:20 Macrocytosis Not Reportable 10/16/19 09:20 Spherocytes Not Reportable 10/16/19 09:20 Pappenheimer Bodies Not Reportable 10/16/19 09:20 Sickle Cells Not Reportable 10/16/19 09:20 Target Cells Few 10/16/19 09:20 Tear Drop Cells Not Reportable 10/16/19 09:20 Ovalocytes Not Reportable 10/16/19 09:20 Helmet Cells Not Reportable 10/16/19 09:20 Varghese-Pulaski Bodies Not Reportable 10/16/19 09:20 [place] Rings Not Reportable 10/16/19 09:20 Bishnu Cells Not Reportable 10/16/19 09:20 Bite Cells Not Reportable 10/16/19 09:20 Crenated Cell Not Reportable 10/16/19 09:20 Elliptocytes Not Reportable 10/16/19 09:20 Acanthocytes (Spur) Not Reportable 10/16/19 09:20 Rouleaux Not Reportable 10/16/19 09:20 Hemoglobin C Crystals Not Reportable 10/16/19 09:20 Schistocytes Not Reportable 10/16/19 09:20 Malaria parasites Not Reportable 10/16/19 09:20 Toni Bodies Not Reportable 10/16/19 09:20 Hem Pathologist Commnt No 10/16/19 09:20 POC ABG pH 7.310 (7.35-7.45) L 10/17/19 05:41 ABG pH 7.390 pH Units (7.350-7.450) 10/23/19 04:47 POC ABG pCO2 52.8 (35-45) H 10/17/19 05:41 ABG pCO2 48.4 mm Hg 10/23/19 04:47 POC ABG pO2 70 (80-105) L 10/17/19 05:41 ABG pO2 68.9 mm Hg (80.0-90.0) L 10/23/19 04:47 POC ABG HCO3 26.6 (22-26 mml/L) 10/17/19 05:41 ABG HCO3 28.7 mmol/L (20.0-26.0) H 10/23/19 04:47 POC ABG Total CO2 28 (23-27mmol/L) 10/17/19 05:41 POC ABG O2 Sat 92 10/17/19 05:41 ABG O2 Saturation 96.6 % (95.0-99.0) 10/23/19 04:47 ABG O2 Content 8.8 (0.0-44) 10/23/19 04:47 POC ABG Base Excess 0 ((-2) - (+3)mmol/L) 10/17/19 05:41 ABG Base Excess 3.4 mmol/L (-2.0-3.0) H 10/23/19 04:47 ABG Hemoglobin 6.6 gm/dl (14.0-18.0) L 10/23/19 04:47 ABG Carboxyhemoglobin 2.1 % (0.0-5.0) 10/23/19 04:47 ABG Methemoglobin 0.5 % (0.0-1.5) 10/23/19 04:47 Oxyhemoglobin 94.1 % (95.0-99.0) L 10/23/19 04:47 FiO2 40 % 10/23/19 04:47 Sodium 141 mmol/L (137-145) 10/22/19 05:14 Potassium 4.0 mmol/L (3.6-5.0) 10/22/19 05:14 Chloride 104.1 mmol/L (98-107) 10/22/19 05:14 Carbon Dioxide 28 mmol/L (22-30) 10/22/19 05:14 Anion Gap 13 mmol/L 10/22/19 05:14 BUN 17 mg/dL (9-20) 10/22/19 05:14 Creatinine 0.5 mg/dL (0.8-1.5) L 10/22/19 05:14 Estimated GFR > 60 ml/min 10/22/19 05:14 BUN/Creatinine Ratio 34 % 10/22/19 05:14 Glucose 116 mg/dL (75-100) H 10/22/19 05:14 POC Glucose 112 (70-105) H 10/23/19 04:39 Hemoglobin A1c 5.7 % (4-6) 10/06/19 05:36 Lactic Acid 1.10 mmol/L (0.7-2.0) 10/13/19 04:20 Calcium 7.7 mg/dL (8.4-10.2) L 10/22/19 05:14 Ionized Calcium 5.2 mg/dL (4.8-5.6) 10/18/19 07:41 Phosphorus 3.50 mg/dL (2.5-4.5) 10/23/19 05:15 Magnesium 1.80 mg/dL (1.7-2.3) 10/23/19 05:15 Total Bilirubin 0.30 mg/dL (0.1-1.2) 10/15/19 04:32 Direct Bilirubin 0.3 mg/dL (0-0.2) H 10/12/19 09:30 Indirect Bilirubin 0.3 mg/dL 10/12/19 09:30 AST 72 units/L (5-40) H 10/15/19 04:32 ALT 31 units/L (7-56) 10/15/19 04:32 Alkaline Phosphatase 68 units/L (35-129) 10/15/19 04:32 Ammonia 49.0 umol/L (25-60) 10/13/19 04:20 Troponin T < 0.010 ng/mL (0.00-0.029) 10/09/19 17:23 C-Reactive Protein 30.60 mg/dL (0.00-1.30) H 10/15/19 04:32 Serum Total Protein 5.2 g/dL (6.1-8.1) L 10/11/19 09:00 Total Protein 4.0 g/dL (6.3-8.2) L D 10/15/19 04:32 Albumin 1.7 g/dL (3.9-5) L 10/15/19 04:32 Albumin/Globulin Ratio 0.7 % 10/15/19 04:32 Prealbumin 0.030 g/L (0.200-0.400) L 10/15/19 04:32 [id number] See scanned result 10/11/19 Unknown [id number]-2-Vyopceewi See scanned result 10/11/19 Unknown Beta Globulins See scanned result 10/11/19 Unknown Gamma Globulins See scanned result 10/11/19 Unknown Abnorm Protein Band 1 see below 10/11/19 09:00 PEP Interpretation See scanned result 10/11/19 Unknown Triglycerides 114 mg/dL (2-149) 10/15/19 04:32 Urine Color [place] (Yellow) 10/11/19 06:23 Urine Turbidity Cloudy (Clear) 10/11/19 06:23 Urine pH 5.0 (5.0-7.0) 10/11/19 06:23 Ur Specific [place] 1.018 (1.003-1.030) 10/11/19 06:23 Urine Protein 30 mg/dl mg/dL (Negative) 10/11/19 06:23 Urine Glucose (UA) Neg mg/dL (Negative) 10/11/19 06:23 Urine Ketones Neg mg/dL (Negative) 10/11/19 06:23 Urine Blood Mod (Negative) 10/11/19 06:23 Urine Nitrite Neg (Negative) 10/11/19 06:23 Urine Bilirubin Neg (Negative) 10/11/19 06:23 Urine Urobilinogen < 2.0 mg/dL (<2.0) 10/11/19 06:23 Ur Leukocyte Esterase Neg (Negative) 10/11/19 06:23 Urine WBC (Auto) 3.0 /HPF (0.0-6.0) 10/11/19 06:23 Urine RBC (Auto) 3.0 /HPF (0.0-6.0) 10/11/19 06:23 Urine Bacteria (Auto) 1+ /HPF (Negative) 10/11/19 06:23 Urine Eosinophils None seen (None Seen) 10/11/19 06:23 Ur Random Creatinine See scanned result 10/11/19 Unknown U Random Total Protein See scanned result 10/11/19 Unknown Urine Creatinine 116.8 mg/dL (0.1-20.0) H 10/11/19 06:23 Urine Creatinine 118.2 mg/dL (0.1-20.0) H 10/11/19 06:23 Protein/Creatinin Ratio See scanned result 10/11/19 Unknown Urine Sodium 14 mmol/L 10/11/19 06:23 Urine Total Protein 104 mg/dL (5-11.8) H 10/11/19 06:23 Urine Total Protein 105 mg/dL (5-11.8) H 10/11/19 06:23 U Abnormal Prot Band 1 See scanned result 10/11/19 Unknown U Abnormal Prot Band 2 See scanned result 10/11/19 Unknown U Abnormal Prot Band 3 See scanned result 10/11/19 Unknown Digoxin 0.7 ng/mL (0.9-2.0) L 10/19/19 04:21 Blood Type A POSITIVE 10/16/19 11:58 Antibody Screen Negative 10/16/19 11:58 Crossmatch See Detail 10/16/19 11:58 Active Medications - Current Medications Current Medications: Generic Name Dose Route Start Last Admin Trade Name Freq PRN Reason Stop Dose Admin Acetaminophen 650 mg 10/15/19 10:00 10/17/19 08:18 Tylenol [place] 650 mg Q4H PRN Administration Pain MILD(1-3)/Fever >100.5/ROMANO Albuterol 2.5 mg 10/05/19 21:36 Proventil IH Q4HRT PRN Shortness Of Breath Albuterol/Ipratropium 1 ampul 10/06/19 02:00 10/23/19 07:45 Duoneb *Not For Prn Use* IH Not Given Q6HRT VERÓNICA Lipase/Protease/Amylase 1 each 10/20/19 10:37 Pancremeeta Moreno 10,500 Unit FEEDTUBE PRN PRN For Clogged Feeding Tube Arformoterol Tartrate 15 mcg 10/06/19 08:30 10/23/19 07:44 Brovana Nebu IH 15 mcg Q12HRT VERÓNICA Administration Budesonide 0.5 mg 10/07/19 12:20 10/23/19 07:44 Pulmicort IH 0.5 mg Q12HRT VERÓNICA Administration Enoxaparin Sodium 40 mg 10/22/19 22:00 10/22/19 21:34 Enoxaparin SUB-Q 40 mg QDAY@2200 VERÓNICA Administration Fluconazole 200 mls @ 100 mls/hr 10/12/19 11:00 10/22/19 10:04 Diflucan IV 100 mls/hr Q24HR VERÓNICA Administration Protocol Fentanyl Citrate 2,000 mcg in 100 mls @ 6.85 mls/hr 10/14/19 03:00 10/23/19 05:04 Fentanyl Drip Premix IV 4 mcg/kg/hr TITR VERÓNICA 27.4 mls/hr Administration Protocol 1 MCG/KG/HR Piperacillin Sod/Tazobactam Sod 4.5 gm in 100 mls @ 200 mls/hr 10/15/19 13:00 10/23/19 05:10 Zosyn/Ns 4.5gm/100ml IV 200 mls/hr Q6HR [facility] Administration Protocol Amiodarone HCl 900 mg/ 500 mls @ 33.333 mls/hr 10/15/19 16:00 10/22/19 05:22 Dextrose IV 0.5 mg/min DIRECT VERÓNICA 16.667 mls/hr Administration Protocol 1 MG/MIN Sodium Chloride 1,000 mls @ 999 mls/hr 10/17/19 08:58 10/22/19 04:16 Nacl 0.45% 1000 Ml IV 150 mls/hr DIRECT PRN Administration FOR WOUND VAC/ABD REPLACEMENT Propofol 1,000 mg in 100 mls @ 4.215 mls/hr 10/22/19 10:00 10/23/19 05:02 Diprivan 10 Mg/Ml IV 35 mcg/kg/min TITR VERÓNICA 29.505 mls/hr Administration Protocol 5 MCG/KG/MIN Amino Acids/Electrolytes/Dextrose 2,400 mls @ 100 mls/hr 10/22/19 20:00 10/22/19 20:20 Tpn Adult IV 10/23/19 19:59 100 mls/hr DAILY@2000 [facility] Administration Protocol Insulin Human Lispro 0 unit 10/14/19 12:00 10/23/19 05:06 Humalog SUB-Q Not Given Q6HR [facility] Protocol Metoprolol Tartrate 2.5 mg 10/15/19 15:34 10/18/19 00:05 Metoprolol IV 2.5 mg Q4HR PRN Administration HR >130 Metoprolol Tartrate 5 mg 10/19/19 13:00 10/23/19 05:01 Metoprolol IV 5 mg Q8H VERÓNICA Administration Multi-Ingred Cream/Lotion/Oil/Oint 1 applic 10/14/19 02:19 Artificial Tears Ophth Oint OU Q4HR PRN Dry Eye(s) Ondansetron HCl 4 mg 10/05/19 21:22 10/11/19 18:20 Zofran IV 4 mg Q3H PRN Administration Nausea And Vomiting Pantoprazole Sodium 40 mg 10/15/19 10:00 10/22/19 10:02 Protonix IV 40 mg QDAY VERÓNICA Administration Simple Syrup 15 ml 10/20/19 10:37 Simple Syrup FEEDTUBE PRN PRN Hypoglycemia Simple Syrup 30 ml 10/20/19 10:37 Simple Syrup FEEDTUBE PRN PRN Hypoglycemia Sodium Bicarbonate 325 mg 10/20/19 10:37 Sodium Bicarbonate FEEDTUBE PRN PRN For Clogged Feeding Tube Sodium Chloride 10 ml 10/05/19 21:22 10/19/19 09:29 Sodium Chloride Flush Syringe 10 Ml IV 10 ml PRN PRN Administration LINE FLUSH Nutrition/Malnutrition Assess - Dietary Evaluation Nutrition/Malnutrition Findings: Nutrition Notes Start: 10/08/19 11:36 Freq: Status: Active Protocol: Document 10/22/19 11:34 LM (Rec: 10/22/19 11:42 LM [id number]) Nutrition Notes Initial or Follow up Reassessment Current Diagnosis Acute Kidney Injury,COPD, Hypertension Other Pertinent Diagnosis intra-abdominal infection, disruption of bowel anastomosis, LE edema Current Diet CPN at 100 ml/hr + Vital AF 1. 2 at 10 ml/hr Labs/Tests Reviewed Pertinent Medications Reviewed Height 6 ft Weight 140.5 kg [place] Body Weight (kg) 80.90 BMI 42.0 Weight change and time frame Wt change noted. Likely due to fluids. Weight Status Morbidly Obese Subjective/Other Information CPN day 9. Vital AF running at 10 ml/hr at time of visit. Percent of energy/protein needs met: 60%/74% Burn Absent Trauma Absent GI Symptoms None Current % PO Negligible Minimum of two criteria No Fluid Accumulation Mild (non-severe) #2 Nutrition Diagnosis Inadequate oral intake Diagnosis Progress(for reassessment Continues documentation) #1 Nutrition Diagnosis Increased nutrient needs ( specify in comment below) Diagnosis Progress(for reassessment Continues documentation) Is patient on ventilator? Yes Is Patient Ambulatory and/or Out of Bed No REE-([place]-St. Jeor-confined to bed) 2731.296 Kcal/Kg value to use for calculation 14 Approximate Energy Requirements Using 1967 kcal/Kg Calculation Used for Recommendations Kcal/kg Additional Notes Protein: 202g (up to 2.5 g/kg IBW 80.9 kg) Pay attention to renal issues Fluid: 1 ml/kcal or per MD Nutrition Intervention Change Diet Order: Continue CPN and trickle feeds Vital 1.2 at 10ml/hr Flush 50ml q6h Nutrition Support: CPN at 100ml/hr: MVI Kcal 1,280 Protein (gm) 150 Carbohydrates (gm) 200 Fat (gm) 0 Fluid (mL) 2,400 Fiber (gm) 0 Goal #1 Meet energy and protein needs as best as possible via CPN and TF Goal #2 TF advancement Anticipated Discharge Needs: unable to determine at this time Follow-Up By: 10/23/19 Additional Comments Labs in AM: BMP, Mg, Phos Follow for TF tolerance, advancement
--- NOTE | 2019-10-23 08:54 | Progress Note ---
Assessment and Plan - Patient Problems (1) Dehiscence of closure of fascia, superficial or muscular Current Visit: No Status: Acute Qualifiers: Encounter type: initial encounter Qualified Code(s): T81.32XA - Disruption of internal operation (surgical) wound, not elsewhere classified, initial encounter Plan to address problem: Pt stable. s/p ex lap with closure of abdominal wall and wound vac placement (10/05) - POD#16; s/p Re-exploration, washout, transection of colon, Abthera placement - 10/13 - POD#8; s/p abd washout, partial omentectomy, partial colectomy with colostomy - 10/16 POD#6. s/p abd washout, feeding tube placement, AbThera placement - 10/19 - POD#3; Abdominal washout and closure - 10/22 - POD#1 Overall, worried about increased swelling and low diastolic BP this AM. He is not acidotic by ABG, does not have a base deficit, and I do not see an obvious leak that might explain a sudden worsening of his condition. Also, in the previous times that he has had a leak, he has never had this appearance. The only difference would be that previously he had the AbThera in place, but it was not enough to get most of the contamination out. Therefore, I would think that if he were leaking, we should see obvious changes in the sump drains as they are large enough to drain stool. Both drains were flushed this AM and they are working properly. Perhaps a lot of the abdominal fluid with inflammatory substances is not been drained out. I wonder as well if he simply is volume overloaded now that we are not draining the abdominal like we were with the AbThera. The low diastolic BP may be med/sedation related. Will await Dr. Negro assessment. Rec: 1) Neuro - sedated. Family states that he has not had a drink in 3 weeks. Perhaps withdrawal may not have been involved. Ativan currently held. Staff reports he is following commands. Currently on propofol 2) CV - BP much improved. Back in Sinus rhythm! 3) Resp - Vent support. 4) GI - Ostomy looks good. Sump drains and wound vac not consistent with previous fluid appearance when he has leaked. Sump drains are working properly. No obvious leak is seen today. Ok to start trickle feeds via the Jejunal port. Would not advance beyond trickle feeds (10cc/hr) at this time. 5) - BUN/Cr look good 6) ID - Abx per ID. Enterococcus on cultures. No Fevers. 7) Nutrition - TPN 8) DVT prophylaxis - SCDs. Lovenox 9) Family -spoke with this AM. Please call with questions. Subjective Date of service: 10/23/19 Patient Reports: Positive: other (called to bedside by due to generalized swelling. Staff reports no events o/n) Objective Vital Signs - 12hr 10/22/19 10/22/19 10/22/19 21:01 21:33 22:00 Temperature Pulse Rate 68 70 Pulse Rate [ Anterior Bilateral Throughout] Pulse Rate [ From Monitor] Respiratory 11 L Rate Respiratory 20 Rate [Abdomen] Respiratory Rate [Anterior Bilateral Throughout] Blood Pressure 136/32 140/37 O2 Sat by Pulse 98 Oximetry 10/22/19 10/22/19 10/22/19 22:01 23:00 23:05 Temperature Pulse Rate 67 69 69 Pulse Rate [ Anterior Bilateral Throughout] Pulse Rate [ From Monitor] Respiratory 21 20 20 Rate Respiratory Rate [Abdomen] Respiratory Rate [Anterior Bilateral Throughout] Blood Pressure 136/39 133/48 133/48 O2 Sat by Pulse 98 98 98 Oximetry 10/23/19 10/23/19 10/23/19 00:00 00:02 01:00 Temperature 99.4 F Pulse Rate 69 71 Pulse Rate [ Anterior Bilateral Throughout] Pulse Rate [ 69 From Monitor] Respiratory 20 16 Rate Respiratory Rate [Abdomen] Respiratory Rate [Anterior Bilateral Throughout] Blood Pressure 126/37 128/37 O2 Sat by Pulse 97 96 Oximetry 10/23/19 10/23/19 10/23/19 01:28 02:00 03:00 Temperature Pulse Rate 69 70 72 Pulse Rate [ Anterior Bilateral Throughout] Pulse Rate [ From Monitor] Respiratory 18 19 Rate Respiratory Rate [Abdomen] Respiratory Rate [Anterior Bilateral Throughout] Blood Pressure 121/45 122/42 126/44 O2 Sat by Pulse 96 97 96 Oximetry 10/23/19 10/23/19 10/23/19 04:00 04:07 04:45 Temperature 98.4 F Pulse Rate 69 65 Pulse Rate [ Anterior Bilateral Throughout] Pulse Rate [ 69 From Monitor] Respiratory 20 Rate Respiratory Rate [Abdomen] Respiratory Rate [Anterior Bilateral Throughout] Blood Pressure 129/31 105/40 O2 Sat by Pulse 96 98 Oximetry 10/23/19 10/23/19 10/23/19 05:00 05:01 06:00 Temperature Pulse Rate 74 74 65 Pulse Rate [ Anterior Bilateral Throughout] Pulse Rate [ From Monitor] Respiratory 19 20 Rate Respiratory Rate [Abdomen] Respiratory Rate [Anterior Bilateral Throughout] Blood Pressure 118/41 118/41 108/36 O2 Sat by Pulse 97 95 Oximetry 10/23/19 10/23/19 10/23/19 07:00 07:45 07:46 Temperature Pulse Rate 66 66 Pulse Rate [ 66 Anterior Bilateral Throughout] Pulse Rate [ From Monitor] Respiratory 20 Rate Respiratory Rate [Abdomen] Respiratory 20 Rate [Anterior Bilateral Throughout] Blood Pressure 111/35 101/40 O2 Sat by Pulse 95 98 Oximetry 10/23/19 08:00 Temperature 98.4 F Pulse Rate Pulse Rate [ Anterior Bilateral Throughout] Pulse Rate [ From Monitor] Respiratory Rate Respiratory Rate [Abdomen] Respiratory Rate [Anterior Bilateral Throughout] Blood Pressure O2 Sat by Pulse Oximetry - General physical appearance no distress, no pain, other (intubated, sedated. anasarca) - Respiratory normal expansion, normal respiratory effort - Abdomen soft, other (pittting edema. wound vac and left sump drain with thin serosang drainage. Right sump with serosang drainage, but slightly thicker) - Labs 10/23/19 05:15 10/22/19 05:14 Calcium panel 10/23/19 Range/Units 05:15 Phosphorus 3.50 (2.5-4.5) mg/dL
[2019-10-23] MEDS: AMIODARONE 900 MG in DEXTROSE 5% IN WATER 482 ML IV SCH (09:14)
[2019-10-23] MEDS: FLUCONAZOLE 400 MG 200 ML IV SCH (09:14)
[2019-10-23] MEDS: PANTOPRAZOLE 40 MG INJ IV SCH (09:17)
[2019-10-23 11:09] LABS: BUN/Creatinine Ratio 36; Blood Urea Nitrogen 18 mg/dL (9-20); Calcium 7.4 mg/dL (8.4-10.2); Hemolysis Index 5
[2019-10-23 11:41] LABS: Albumin 1.2 g/dL (3.9-5); Bilirubin,Direct 0.7 mg/dL (0-0.2)
[2019-10-23] MEDS ORDERED: FUROSEMIDE 40 MG/4 ML INJ IV ONE (12:00)
--- NOTE | 2019-10-23 12:00 | XRay Report ---
CHEST 1 VIEW INDICATION: Hypoxemia, pulmonary edema COMPARISON: One day prior. FINDINGS: Support devices: Unchanged. Heart: Stable. Lungs/Pleura: Small bilateral pleural effusions. Parenchymal disease in the left upper lung and right lower lung essentially unchanged. Appearance is consistent with asymmetrical edema or possibly bilat eral pneumonia. IMPRESSION: 1. No significant change. Signer Name: Kiel Okeefe MD Signed: 10/23/2019 11:55 AM Workstation Name: [id number]
[2019-10-23] MEDS ORDERED: SODIUM CHLORIDE 0.9% 500 ML 500 ML IV SCH (12:03)
--- NOTE | 2019-10-23 12:07 | Progress Note ---
Assessment and Plan Atrial fibrillation/flutter, spontaneously reverted to sinus rhythm treated with adenosine x1 on 10/15 on IV amiodarone and IV metoprolol Sepsis Severe abdominal pain s/p exploratory laparotomy, abdominal washout, closure of abdominal fascia with wound vac placement on 10/05 s/p abdominal washout with partial colectomy and left colostomy on 10/16 s/p abdominal washout and closure on 10/22 Recent colon resection for bowel perforation following a colonoscopy Atypical chest pain troponins are normal Hx of [place] 12/2017: PCI of the circumflex and second vessel POBA of the distal LAD occlusion. Left ventricle fraction 45-50%. Tobacco abuse COPD Hypertension Hyperlipidemia Recommend: We will stop intravenous amiodarone and instead change to oral amiodarone 200mg daily. We will continue intravenous metoprolol for atrial fibrillation suppression. Subjective Date of service: 10/23/19 Principal diagnosis: acute renal failure Interval history: Patient remains intubated on the ventilator. Patient has G-tube in place. Stable sinus rhythm on telemetry. Intravenous amiodarone and intravenous metoprolol continues for suppression of paroxysmal Afib. Objective Vital Signs Temp Pulse Pulse Pulse Resp Resp Resp 10/23/19 11:25 74 10/23/19 11:00 80 16 10/23/19 10:00 77 15 20 10/23/19 09:00 73 18 10/23/19 08:00 98.4 F 66 70 20 10/23/19 07:46 66 10/23/19 07:45 66 20 10/23/19 07:00 66 20 10/23/19 06:00 65 20 10/23/19 05:01 74 10/23/19 05:00 74 19 10/23/19 04:45 65 10/23/19 04:07 98.4 F 10/23/19 04:00 69 69 20 10/23/19 03:00 72 19 10/23/19 02:00 70 18 10/23/19 01:28 69 10/23/19 01:00 71 16 10/23/19 00:02 99.4 F 10/23/19 00:00 69 69 20 10/22/19 23:05 69 20 10/22/19 23:00 69 20 10/22/19 22:01 67 21 10/22/19 22:00 20 10/22/19 21:33 70 10/22/19 21:01 68 11 L 10/22/19 20:01 70 21 10/22/19 20:00 71 70 21 10/22/19 19:59 97.9 F 10/22/19 19:57 71 23 10/22/19 19:34 71 10/22/19 19:01 75 11 L 10/22/19 18:01 88 24 10/22/19 17:45 79 20 10/22/19 17:37 79 23 10/22/19 17:32 83 10/22/19 17:29 10/22/19 17:27 99.2 F 86 20 10/22/19 16:00 99.7 F H 77 16 10/22/19 14:00 65 20 10/22/19 13:55 63 20 10/22/19 13:54 64 10/22/19 13:38 72 10/22/19 13:00 71 20 BP Pulse Ox 10/23/19 11:25 125/50 95 10/23/19 11:00 136/59 94 10/23/19 10:00 130/51 93 10/23/19 09:00 123/49 96 10/23/19 08:00 104/37 94 10/23/19 07:46 101/40 98 10/23/19 07:45 10/23/19 07:00 111/35 95 10/23/19 06:00 108/36 95 10/23/19 05:01 118/41 10/23/19 05:00 118/41 97 10/23/19 04:45 105/40 98 10/23/19 04:07 10/23/19 04:00 129/31 96 10/23/19 03:00 126/44 96 10/23/19 02:00 122/42 97 10/23/19 01:28 121/45 96 10/23/19 01:00 128/37 96 10/23/19 00:02 10/23/19 00:00 126/37 97 10/22/19 23:05 133/48 98 10/22/19 23:00 133/48 98 10/22/19 22:01 136/39 98 10/22/19 22:00 10/22/19 21:33 140/37 10/22/19 21:01 136/32 98 10/22/19 20:01 137/41 97 10/22/19 20:00 97 10/22/19 19:59 10/22/19 19:57 10/22/19 19:34 136/38 99 10/22/19 19:01 141/44 97 10/22/19 18:01 146/71 96 10/22/19 17:45 155/63 95 10/22/19 17:37 151/68 97 10/22/19 17:32 140/103 96 10/22/19 17:29 99 10/22/19 17:27 140/103 97 10/22/19 16:00 97 10/22/19 14:00 121/52 97 10/22/19 13:55 10/22/19 13:54 123/51 100 10/22/19 13:38 127/56 10/22/19 13:00 129/54 100 - Physical Examination General: Other (intubated, on the vent) Cardiac: Positive: Reg Rate and Rhythm Abdomen: Positive: Other (abdominal wound vac is in place) - Labs and Meds Cardiac Enzymes 10/23/19 Range/Units 10:44 AST 19 (5-40) units/L CBC 10/23/19 Range/Units 05:15 WBC 18.3 H (4.5-11.0) K/mm3 RBC 2.33 L (3.65-5.03) M/mm3 Hgb 7.0 L (11.8-15.2) gm/dl Hct 21.5 L (35.5-45.6) % Plt Count 301 (140-440) K/mm3 Lymph # 0.9 L (1.2-5.4) K/mm3 Barren # 1.5 H (0.0-0.8) K/mm3 Eos # 0.0 (0.0-0.4) K/mm3 Baso # 0.0 (0.0-0.1) K/mm3 Comprehensive Metabolic Panel 10/23/19 10/23/19 Range/Units 10:44 10:44 Sodium 139 (137-145) mmol/L Potassium 3.6 (3.6-5.0) mmol/L Chloride 100.6 (98-107) mmol/L Carbon Dioxide 25 (22-30) mmol/L BUN 18 (9-20) mg/dL Creatinine 0.5 L (0.8-1.5) mg/dL Glucose 165 H (75-100) mg/dL Calcium 7.4 L (8.4-10.2) mg/dL Direct Bilirubin 0.7 H (0-0.2) mg/dL Indirect Bilirubin 0.1 mg/dL AST 19 (5-40) units/L ALT 11 (7-56) units/L Alkaline Phosphatase 86 (35-129) units/L Total Protein 4.5 L (6.3-8.2) g/dL Albumin 1.2 L (3.9-5) g/dL
--- NOTE | 2019-10-23 12:21 | Progress Note ---
Assessment and Plan 54 y/o male with anastomic leak 10/23: Long discussion with surgery and via phone. Anasarca is likely from decreased oncotic pressure and immobility of several days now that abdomen is finally closed. Now fluid is essentially leaking into the interstitium now that the abdomen is shut and there is increased intra-abdominal pressure. Total Protein is 4.5 and albumin is 1.2. This is to be expected given current ill ness. Will attempt to increase oncotic pressure with 2 units of PRBC's and albumin infusions for the next 24 hours starting at midnight tonight. Will give lasix inbetween transfusions and then again tonight. CXR is consistent with pulmonary edema volume overload. Will continue vent for now and after significant volume removal then will attempt extubation. Discussed with and she understands. Will continue to monitor. Agree with trickle feeds and cards has switched amio over to PO to be given through the G-tube. If tolerates, hopeful to be rid of TPN soon as this is necessary but excessive volume as well. 10/22: Added diprovan as more sedation was needed. Hopefully once closed and no leaks, patient can be extubated. Cards very concerned about length of time for IV amio. Will discuss with surgery the time frame that gut can be used. 10/21: Will hold on weaning until abdomen is closed, especially knowing mental status is good. Will focus on pain control. Replace electrolytes. Appreciate Surgery recs and detail. Follow up any new recs from cards. Or tomorrow for closure 1. CV-tachycardia but stable BP. Was ok on Amio and Dilt but when BP started d ropping, we stopped the dilt. Now rate back up and not controlled on 5. Spoke to nursing about increasing to 10. Continue fluid boluses for BP as needed. Trying not to start pressors if possible. 2. Pulm-stable on Vent. FiO2 down to 45% prior to go to OR. CXR shows right lower lobe airspace disease (10/15). Light green substance in ET tube has stopped. Continue current vent management. Wean once all surgeries are done. 3. GI-Going back to OR again on Tuesday for Washout. 4. Renal- Renal function and output have improved. Will continue to monitor. Had a large volume out that we are actively replacing. This may have added to hypotension this am. 5. Neuro- on rounds, per nursing, patient did not wake up during sedation vacation. Stopping all sedation now. If not able to control rate with drugs, could be related to pain. Spoke to nursing to use PRN pushes to see if this helps HR as well. If patient's mental state does not improve post all mallika geries, may need CT head, EEG and neurology evaluation. 6. ID-continues to spike temps. ID following. Defer to them for repeat cultures. Blood has been negative. 7. Electrolytes-Reviewed renal note from yesterday. Overall prognosis is guarded. Will continue to follow. CCT 31 minutes. Subjective Date of service: 10/23/19 Principal diagnosis: acute renal failure Interval history: Successful surgery on yesterday. Today anasarca. Breathing is stable. Mental status is appropriate. BP was marginal so Diprovan decreased appropriately. Fent for Pain. Objective Vital Signs - 12hr 10/23/19 10/23/19 10/23/19 01:00 01:28 02:00 Temperature Pulse Rate 71 69 70 Pulse Rate [ Anterior Bilateral Throughout] Pulse Rate [ From Monitor] Respiratory 16 18 Rate Respiratory Rate [Abdomen] Respiratory Rate [Anterior Bilateral Throughout] Blood Pressure 128/37 121/45 122/42 O2 Sat by Pulse 96 96 97 Oximetry 10/23/19 10/23/19 10/23/19 03:00 04:00 04:07 Temperature 98.4 F Pulse Rate 72 69 Pulse Rate [ Anterior Bilateral Throughout] Pulse Rate [ 69 From Monitor] Respiratory 19 20 Rate Respiratory Rate [Abdomen] Respiratory Rate [Anterior Bilateral Throughout] Blood Pressure 126/44 129/31 O2 Sat by Pulse 96 96 Oximetry 10/23/19 10/23/19 10/23/19 04:45 05:00 05:01 Temperature Pulse Rate 65 74 74 Pulse Rate [ Anterior Bilateral Throughout] Pulse Rate [ From Monitor] Respiratory 19 Rate Respiratory Rate [Abdomen] Respiratory Rate [Anterior Bilateral Throughout] Blood Pressure 105/40 118/41 118/41 O2 Sat by Pulse 98 97 Oximetry 10/23/19 10/23/19 10/23/19 06:00 07:00 07:45 Temperature Pulse Rate 65 66 Pulse Rate [ 66 Anterior Bilateral Throughout] Pulse Rate [ From Monitor] Respiratory 20 20 Rate Respiratory Rate [Abdomen] Respiratory 20 Rate [Anterior Bilateral Throughout] Blood Pressure 108/36 111/35 O2 Sat by Pulse 95 95 Oximetry 10/23/19 10/23/19 10/23/19 07:46 08:00 09:00 Temperature 98.4 F Pulse Rate 66 66 73 Pulse Rate [ Anterior Bilateral Throughout] Pulse Rate [ 70 From Monitor] Respiratory 20 18 Rate Respiratory Rate [Abdomen] Respiratory Rate [Anterior Bilateral Throughout] Blood Pressure 101/40 104/37 123/49 O2 Sat by Pulse 98 94 96 Oximetry 10/23/19 10/23/19 10/23/19 10:00 11:00 11:25 Temperature Pulse Rate 77 80 74 Pulse Rate [ Anterior Bilateral Throughout] Pulse Rate [ From Monitor] Respiratory 15 16 Rate Respiratory 20 Rate [Abdomen] Respiratory Rate [Anterior Bilateral Throughout] Blood Pressure 130/51 136/59 125/50 O2 Sat by Pulse 93 94 95 Oximetry 10/23/19 12:00 Temperature Pulse Rate 73 Pulse Rate [ Anterior Bilateral Throughout] Pulse Rate [ From Monitor] Respiratory 16 Rate Respiratory Rate [Abdomen] Respiratory Rate [Anterior Bilateral Throughout] Blood Pressure 116/47 O2 Sat by Pulse 95 Oximetry Constitutional: alert Eyes: non-icteric ENT: oropharynx moist Neck: supple Effort: normal Ascultation: Bilateral: diminished breath sounds Cardiovascular: regular rate and rhythm Gastrointestinal: tender Integumentary: normal Extremities: no cyanosis Neurologic: normal mental status, non-focal exam Psychiatric: mood appropriate, affect normal CBC and BMP: 10/23/19 05:15 10/23/19 10:44 ABG, PT/INR, D-dimer: ABG POC ABG pH 7.310 (7.35-7.45) L 10/17/19 05:41 ABG pH 7.390 pH Units (7.350-7.450) 10/23/19 04:47 POC ABG pCO2 52.8 (35-45) H 10/17/19 05:41 ABG pCO2 48.4 mm Hg 10/23/19 04:47 POC ABG pO2 70 (80-105) L 10/17/19 05:41 ABG pO2 68.9 mm Hg (80.0-90.0) L 10/23/19 04:47 POC ABG HCO3 26.6 (22-26 mml/L) 10/17/19 05:41 POC ABG Total CO2 28 (23-27mmol/L) 10/17/19 05:41 POC ABG O2 Sat 92 10/17/19 05:41 ABG O2 Saturation 96.6 % (95.0-99.0) 10/23/19 04:47 Abnormal lab findings: Abnormal Labs 10/06/19 10/06/19 10/07/19 05:36 05:36 05:54 WBC 21.8 H 21.5 H RBC 3.55 L Hgb 10.9 L Hct 32.7 L RDW Plt Count Lymph % (Auto) [place] % (Auto) Lymph # [place] # Seg Neutrophils % Seg Neuts % (Manual) 91.0 H Lymphocytes % (Manual) 2.0 L Seg Neutrophils # Seg Neutrophils # Man 19.8 H Lymphocytes # (Manual) 0.4 L Monocytes # (Manual) 1.1 H POC ABG pH ABG pH POC ABG pCO2 POC ABG pO2 ABG pO2 ABG HCO3 ABG Base Excess ABG Hemoglobin Oxyhemoglobin Sodium 135 L Potassium Chloride 95.9 L Carbon Dioxide BUN Creatinine 0.7 L Glucose POC Glucose Calcium Phosphorus Magnesium Direct Bilirubin AST C-Reactive Protein Serum Total Protein Total Protein 5.7 L Albumin 2.5 L Prealbumin Aqhbj-8-Mdueajlrn Czfla-3-Oacqmmrci Gamma Globulins PEP Interpretation Urine Creatinine Urine Total Protein Digoxin Crossmatch 10/07/19 10/09/19 10/09/19 05:54 10:52 10:52 WBC 16.6 H RBC Hgb Hct RDW Plt Count 498 H Lymph % (Auto) [place] % (Auto) Lymph # [place] # Seg Neutrophils % Seg Neuts % (Manual) 93.0 H Lymphocytes % (Manual) 5.0 L Seg Neutrophils # Seg Neutrophils # Man 15.4 H Lymphocytes # (Manual) 0.8 L Monocytes # (Manual) POC ABG pH ABG pH POC ABG pCO2 POC ABG pO2 ABG pO2 ABG HCO3 ABG Base Excess ABG Hemoglobin Oxyhemoglobin Sodium Potassium Chloride 97.9 L Carbon Dioxide 20 L D BUN 23 H Creatinine 1.7 H D Glucose 109 H POC Glucose Calcium 8.1 L Phosphorus Magnesium Direct Bilirubin AST C-Reactive Protein Serum Total Protein Total Protein Albumin Prealbumin Vplry-0-Eshdrpjqz Denvz-1-Aksxohlxn Gamma Globulins PEP Interpretation Urine Creatinine Urine Total Protein Digoxin Crossmatch 10/09/19 10/10/19 10/10/19 17:23 05:30 05:30 WBC 14.6 H RBC Hgb 11.1 L Hct 33.5 L RDW Plt Count 527 H Lymph % (Auto) [place] % (Auto) Lymph # [place] # Seg Neutrophils % Seg Neuts % (Manual) Lymphocytes % (Manual) Seg Neutrophils # Seg Neutrophils # Man Lymphocytes # (Manual) Monocytes # (Manual) POC ABG pH ABG pH POC ABG pCO2 POC ABG pO2 ABG pO2 ABG HCO3 ABG Base Excess ABG Hemoglobin Oxyhemoglobin Sodium 130 L D Potassium 5.1 H Chloride 90.0 L 91.0 L Carbon Dioxide 20 L 20 L BUN 27 H 35 H Creatinine 1.9 H 2.0 H Glucose 104 H POC Glucose Calcium Phosphorus Magnesium Direct Bilirubin AST C-Reactive Protein Serum Total Protein Total Protein Albumin Prealbumin Jgjsy-7-Syjtqgudi Oftsg-2-Yrnulqcyo Gamma Globulins PEP Interpretation Urine Creatinine Urine Total Protein Digoxin Crossmatch 10/10/19 10/10/19 10/11/19 08:33 08:44 05:41 WBC 13.2 H RBC Hgb 11.3 L Hct 33.8 L RDW 15.3 H Plt Count 543 H Lymph % (Auto) [place] % (Auto) Lymph # [place] # Seg Neutrophils % Seg Neuts % (Manual) Lymphocytes % (Manual) Seg Neutrophils # Seg Neutrophils # Man Lymphocytes # (Manual) Monocytes # (Manual) POC ABG pH ABG pH POC ABG pCO2 POC ABG pO2 ABG pO2 ABG HCO3 ABG Base Excess ABG Hemoglobin Oxyhemoglobin Sodium Potassium Chloride Carbon Dioxide BUN Creatinine Glucose 113 H POC Glucose 117 H Calcium Phosphorus Magnesium Direct Bilirubin AST C-Reactive Protein Serum Total Protein Total Protein Albumin Prealbumin Ccrbs-4-Jcuwqstsp Ecywk-0-Siluotebu Gamma Globulins PEP Interpretation Urine Creatinine Urine Total Protein Digoxin Crossmatch 10/11/19 10/11/19 10/11/19 05:41 06:23 06:23 WBC RBC Hgb Hct RDW Plt Count Lymph % (Auto) [place] % (Auto) Lymph # [place] # Seg Neutrophils % Seg Neuts % (Manual) Lymphocytes % (Manual) Seg Neutrophils # Seg Neutrophils # Man Lymphocytes # (Manual) Monocytes # (Manual) POC ABG pH ABG pH POC ABG pCO2 POC ABG pO2 ABG pO2 ABG HCO3 ABG Base Excess ABG Hemoglobin Oxyhemoglobin Sodium 134 L Potassium Chloride 96.3 L Carbon Dioxide BUN 37 H Creatinine Glucose 58 L POC Glucose Calcium Phosphorus 4.90 H Magnesium Direct Bilirubin AST C-Reactive Protein Serum Total Protein Total Protein Albumin Prealbumin Bpjuw-5-Fqotvenco Oaskc-0-Iedxmghxl Gamma Globulins PEP Interpretation Urine Creatinine 118.2 H 116.8 H Urine Total Protein 105 H 104 H Digoxin Crossmatch 10/11/19 10/12/19 10/12/19 09:00 06:09 06:09 WBC 13.8 H RBC 3.39 L Hgb 10.2 L Hct 30.9 L RDW 15.5 H Plt Count 459 H Lymph % (Auto) [place] % (Auto) Lymph # [place] # Seg Neutrophils % Seg Neuts % (Manual) Lymphocytes % (Manual) Seg Neutrophils # Seg Neutrophils # Man Lymphocytes # (Manual) Monocytes # (Manual) POC ABG pH ABG pH POC ABG pCO2 POC ABG pO2 ABG pO2 ABG HCO3 ABG Base Excess ABG Hemoglobin Oxyhemoglobin Sodium 131 L Potassium Chloride 96.2 L Carbon Dioxide 21 L BUN 43 H Creatinine Glucose 72 L POC Glucose Calcium Phosphorus Magnesium Direct Bilirubin AST C-Reactive Protein Serum Total Protein 5.2 L Total Protein Albumin 1.9 L Prealbumin Uwqcp-3-Beohtnybl 0.9 H Hring-5-Zsdbettwk 1.0 H Gamma Globulins 0.7 L PEP Interpretation see below H Urine Creatinine Urine Total Protein Digoxin Crossmatch 10/12/19 10/12/19 10/12/19 08:20 09:30 09:30 WBC RBC Hgb Hct RDW Plt Count Lymph % (Auto) [place] % (Auto) Lymph # [place] # Seg Neutrophils % Seg Neuts % (Manual) Lymphocytes % (Manual) Seg Neutrophils # Seg Neutrophils # Man Lymphocytes # (Manual) Monocytes # (Manual) POC ABG pH ABG pH POC ABG pCO2 POC ABG pO2 63 L ABG pO2 ABG HCO3 ABG Base Excess ABG Hemoglobin Oxyhemoglobin Sodium Potassium Chloride Carbon Dioxide BUN Creatinine Glucose POC Glucose Calcium Phosphorus Magnesium 2.50 H Direct Bilirubin 0.3 H AST C-Reactive Protein Serum Total Protein Total Protein 5.1 L Albumin 2.2 L Prealbumin Oedty-5-Bacbkrgrn Exdzm-2-Ruemtmicg Gamma Globulins PEP Interpretation Urine Creatinine Urine Total Protein Digoxin Crossmatch 10/13/19 10/13/19 10/13/19 04:20 04:20 13:20 WBC 15.7 H RBC 3.64 L Hgb 10.9 L Hct 33.1 L RDW 15.8 H Plt Count 488 H Lymph % (Auto) [place] % (Auto) Lymph # [place] # Seg Neutrophils % Seg Neuts % (Manual) Lymphocytes % (Manual) Seg Neutrophils # Seg Neutrophils # Man Lymphocytes # (Manual) Monocytes # (Manual) POC ABG pH ABG pH POC ABG pCO2 POC ABG pO2 ABG pO2 ABG HCO3 ABG Base Excess ABG Hemoglobin Oxyhemoglobin Sodium Potassium Chloride Carbon Dioxide BUN 28 H Creatinine Glucose POC Glucose Calcium Phosphorus Magnesium Direct Bilirubin AST C-Reactive Protein Serum Total Protein Total Protein Albumin Prealbumin Oehjy-4-Sqefqeeet Gubpb-2-Jfcvoujao Gamma Globulins PEP Interpretation Urine Creatinine Urine Total Protein Digoxin Crossmatch See Detail 10/13/19 10/13/19 10/14/19 18:24 20:05 04:47 WBC 24.2 H RBC Hgb 10.9 L Hct 34.2 L RDW 17.0 H Plt Count 442 H Lymph % (Auto) [place] % (Auto) Lymph # [place] # Seg Neutrophils % Seg Neuts % (Manual) Lymphocytes % (Manual) Seg Neutrophils # Seg Neutrophils # Man Lymphocytes # (Manual) Monocytes # (Manual) POC ABG pH ABG pH 7.180 L* 7.278 L POC ABG pCO2 POC ABG pO2 ABG pO2 130.7 H ABG HCO3 ABG Base Excess -6.5 L -6.5 L ABG Hemoglobin 12.2 L 12.3 L Oxyhemoglobin 92.9 L Sodium Potassium Chloride Carbon Dioxide BUN Creatinine Glucose POC Glucose Calcium Phosphorus Magnesium Direct Bilirubin AST C-Reactive Protein Serum Total Protein Total Protein Albumin Prealbumin Dgkdf-2-Dforugfvv Hvygh-2-Tyhsofawq Gamma Globulins PEP Interpretation Urine Creatinine Urine Total Protein Digoxin Crossmatch 10/14/19 10/14/19 10/14/19 04:47 05:40 10:14 WBC RBC Hgb Hct RDW Plt Count Lymph % (Auto) [place] % (Auto) Lymph # [place] # Seg Neutrophils % Seg Neuts % (Manual) Lymphocytes % (Manual) Seg Neutrophils # Seg Neutrophils # Man Lymphocytes # (Manual) Monocytes # (Manual) POC ABG pH ABG pH POC ABG pCO2 POC ABG pO2 ABG pO2 76.3 L ABG HCO3 19.1 L ABG Base Excess -5.8 L ABG Hemoglobin 10.9 L Oxyhemoglobin 93.4 L Sodium Potassium 5.1 H D Chloride 109.2 H Carbon Dioxide 17 L BUN 38 H Creatinine 1.8 H D Glucose 104 H POC Glucose Calcium 7.4 L Phosphorus 5.60 H Magnesium Direct Bilirubin AST C-Reactive Protein Serum Total Protein Total Protein Albumin Prealbumin Njbeg-1-Mgpdmynbk Qnojz-0-Xvipheoae Gamma Globulins PEP Interpretation Urine Creatinine Urine Total Protein Digoxin Crossmatch 10/14/19 10/15/19 10/15/19 23:46 04:32 04:32 WBC 15.5 H RBC 2.89 L Hgb 8.8 L Hct 27.3 L D RDW 16.6 H Plt Count Lymph % (Auto) [place] % (Auto) Lymph # [place] # Seg Neutrophils % Seg Neuts % (Manual) Lymphocytes % (Manual) Seg Neutrophils # Seg Neutrophils # Man Lymphocytes # (Manual) Monocytes # (Manual) POC ABG pH ABG pH POC ABG pCO2 POC ABG pO2 ABG pO2 ABG HCO3 ABG Base Excess ABG Hemoglobin Oxyhemoglobin Sodium 147 H Potassium Chloride 114.0 H Carbon Dioxide 19 L BUN 42 H Creatinine Glucose 112 H POC Glucose 113 H Calcium 7.3 L Phosphorus Magnesium Direct Bilirubin AST 72 H C-Reactive Protein 30.60 H Serum Total Protein Total Protein 4.0 L D Albumin 1.7 L Prealbumin 0.030 L Jvurw-9-Wsrlccuxw Npnfr-4-Aoirtkeji Gamma Globulins PEP Interpretation Urine Creatinine Urine Total Protein Digoxin Crossmatch 10/15/19 10/15/19 10/15/19 05:30 12:08 17:23 WBC RBC Hgb Hct RDW Plt Count Lymph % (Auto) [place] % (Auto) Lymph # [place] # Seg Neutrophils % Seg Neuts % (Manual) Lymphocytes % (Manual) Seg Neutrophils # Seg Neutrophils # Man Lymphocytes # (Manual) Monocytes # (Manual) POC ABG pH ABG pH 7.296 L POC ABG pCO2 POC ABG pO2 ABG pO2 114.7 H ABG HCO3 ABG Base Excess -3.7 L ABG Hemoglobin 8.9 L Oxyhemoglobin Sodium Potassium Chloride Carbon Dioxide BUN Creatinine Glucose POC Glucose 106 H 106 H Calcium Phosphorus Magnesium Direct Bilirubin AST C-Reactive Protein Serum Total Protein Total Protein Albumin Prealbumin Omsuo-3-Hywaayzfr Aurtw-1-Noigyldij Gamma Globulins PEP Interpretation Urine Creatinine Urine Total Protein Digoxin Crossmatch 10/16/19 10/16/19 10/16/19 00:07 04:44 05:24 WBC RBC Hgb Hct RDW Plt Count Lymph % (Auto) [place] % (Auto) Lymph # [place] # Seg Neutrophils % Seg Neuts % (Manual) Lymphocytes % (Manual) Seg Neutrophils # Seg Neutrophils # Man Lymphocytes # (Manual) Monocytes # (Manual) POC ABG pH ABG pH POC ABG pCO2 POC ABG pO2 ABG pO2 ABG HCO3 ABG Base Excess ABG Hemoglobin Oxyhemoglobin Sodium 150 H Potassium Chloride 115.8 H Carbon Dioxide BUN 35 H Creatinine Glucose 129 H POC Glucose 119 H 129 H Calcium 7.3 L Phosphorus 1.80 L D Magnesium Direct Bilirubin AST C-Reactive Protein Serum Total Protein Total Protein Albumin Prealbumin Wqnum-4-Lijdcgsjt Grykf-7-Ypbprgyau Gamma Globulins PEP Interpretation Urine Creatinine Urine Total Protein Digoxin Crossmatch 10/16/19 10/16/19 10/16/19 06:53 09:20 11:58 WBC 14.6 H RBC 2.70 L Hgb 8.1 L Hct 25.2 L RDW 16.7 H Plt Count Lymph % (Auto) [place] % (Auto) Lymph # [place] # Seg Neutrophils % Seg Neuts % (Manual) 79.0 H Lymphocytes % (Manual) 4.0 L Seg Neutrophils # Seg Neutrophils # Man 11.5 H Lymphocytes # (Manual) 0.6 L Monocytes # (Manual) POC ABG pH ABG pH POC ABG pCO2 47.0 H POC ABG pO2 ABG pO2 ABG HCO3 ABG Base Excess ABG Hemoglobin Oxyhemoglobin Sodium Potassium Chloride Carbon Dioxide BUN Creatinine Glucose POC Glucose Calcium Phosphorus Magnesium Direct Bilirubin AST C-Reactive Protein Serum Total Protein Total Protein Albumin Prealbumin Hfzkl-0-Crtwwqpnl Yeehl-6-Dauwtsncs Gamma Globulins PEP Interpretation Urine Creatinine Urine Total Protein Digoxin Crossmatch See Detail 10/16/19 10/16/19 10/16/19 15:23 17:50 23:58 WBC RBC Hgb Hct RDW Plt Count Lymph % (Auto) [place] % (Auto) Lymph # [place] # Seg Neutrophils % Seg Neuts % (Manual) Lymphocytes % (Manual) Seg Neutrophils # Seg Neutrophils # Man Lymphocytes # (Manual) Monocytes # (Manual) POC ABG pH ABG pH POC ABG pCO2 POC ABG pO2 ABG pO2 ABG HCO3 ABG Base Excess ABG Hemoglobin Oxyhemoglobin Sodium Potassium Chloride Carbon Dioxide BUN Creatinine Glucose POC Glucose 221 H 201 H 179 H Calcium Phosphorus Magnesium Direct Bilirubin AST C-Reactive Protein Serum Total Protein Total Protein Albumin Prealbumin Oavtj-7-Froixounp Wdgbw-0-Glsurjkrd Gamma Globulins PEP Interpretation Urine Creatinine Urine Total Protein Digoxin Crossmatch 10/17/19 10/17/19 10/17/19 04:08 04:08 05:41 WBC 22.3 H RBC 3.35 L Hgb 10.0 L Hct 31.2 L D RDW 16.1 H Plt Count Lymph % (Auto) [place] % (Auto) Lymph # [place] # Seg Neutrophils % Seg Neuts % (Manual) Lymphocytes % (Manual) Seg Neutrophils # Seg Neutrophils # Man Lymphocytes # (Manual) Monocytes # (Manual) POC ABG pH 7.310 L ABG pH POC ABG pCO2 52.8 H POC ABG pO2 70 L ABG pO2 ABG HCO3 ABG Base Excess ABG Hemoglobin Oxyhemoglobin Sodium 147 H Potassium Chloride 114.9 H Carbon Dioxide BUN 36 H Creatinine Glucose 165 H POC Glucose Calcium 6.9 L Phosphorus 2.20 L D Magnesium Direct Bilirubin AST C-Reactive Protein Serum Total Protein Total Protein Albumin Prealbumin Eccgu-3-Wjyvjhzsk Hcgfi-2-Uyhmazdwp Gamma Globulins PEP Interpretation Urine Creatinine Urine Total Protein Digoxin Crossmatch 10/17/19 10/17/19 10/17/19 05:42 11:33 18:17 WBC RBC Hgb Hct RDW Plt Count Lymph % (Auto) [place] % (Auto) Lymph # [place] # Seg Neutrophils % Seg Neuts % (Manual) Lymphocytes % (Manual) Seg Neutrophils # Seg Neutrophils # Man Lymphocytes # (Manual) Monocytes # (Manual) POC ABG pH ABG pH POC ABG pCO2 POC ABG pO2 ABG pO2 ABG HCO3 ABG Base Excess ABG Hemoglobin Oxyhemoglobin Sodium Potassium Chloride Carbon Dioxide BUN Creatinine Glucose POC Glucose 149 H 154 H 163 H Calcium Phosphorus Magnesium Direct Bilirubin AST C-Reactive Protein Serum Total Protein Total Protein Albumin Prealbumin Ysbvm-4-Moqgsjeio Zruvw-0-Tiarazrkx Gamma Globulins PEP Interpretation Urine Creatinine Urine Total Protein Digoxin Crossmatch 10/17/19 10/18/19 10/18/19 23:34 03:29 04:50 WBC RBC Hgb Hct RDW Plt Count Lymph % (Auto) [place] % (Auto) Lymph # [place] # Seg Neutrophils % Seg Neuts % (Manual) Lymphocytes % (Manual) Seg Neutrophils # Seg Neutrophils # Man Lymphocytes # (Manual) Monocytes # (Manual) POC ABG pH ABG pH POC ABG pCO2 POC ABG pO2 ABG pO2 78.8 L ABG HCO3 ABG Base Excess ABG Hemoglobin 8.8 L Oxyhemoglobin Sodium Potassium Chloride 111.8 H Carbon Dioxide BUN 27 H Creatinine 0.6 L Glucose 140 H POC Glucose 135 H Calcium 7.1 L Phosphorus 1.80 L Magnesium Direct Bilirubin AST C-Reactive Protein Serum Total Protein Total Protein Albumin Prealbumin Qbzgv-1-Dpsxkmxxk Glwwf-3-Pbyxzykck Gamma Globulins PEP Interpretation Urine Creatinine Urine Total Protein Digoxin Crossmatch 10/18/19 10/18/19 10/18/19 05:45 11:19 18:26 WBC RBC Hgb Hct RDW Plt Count Lymph % (Auto) [place] % (Auto) Lymph # [place] # Seg Neutrophils % Seg Neuts % (Manual) Lymphocytes % (Manual) Seg Neutrophils # Seg Neutrophils # Man Lymphocytes # (Manual) Monocytes # (Manual) POC ABG pH ABG pH POC ABG pCO2 POC ABG pO2 ABG pO2 ABG HCO3 ABG Base Excess ABG Hemoglobin Oxyhemoglobin Sodium Potassium Chloride Carbon Dioxide BUN Creatinine Glucose POC Glucose 145 H 152 H 125 H Calcium Phosphorus Magnesium Direct Bilirubin AST C-Reactive Protein Serum Total Protein Total Protein Albumin Prealbumin Zcvrb-8-Shlgrceio Pwtot-1-Oxiptugrh Gamma Globulins PEP Interpretation Urine Creatinine Urine Total Protein Digoxin Crossmatch 10/18/19 10/19/19 10/19/19 23:27 04:21 04:21 WBC RBC Hgb Hct RDW Plt Count Lymph % (Auto) [place] % (Auto) Lymph # [place] # Seg Neutrophils % Seg Neuts % (Manual) Lymphocytes % (Manual) Seg Neutrophils # Seg Neutrophils # Man Lymphocytes # (Manual) Monocytes # (Manual) POC ABG pH ABG pH POC ABG pCO2 POC ABG pO2 ABG pO2 ABG HCO3 ABG Base Excess ABG Hemoglobin Oxyhemoglobin Sodium Potassium Chloride 108.4 H Carbon Dioxide BUN 22 H Creatinine 0.5 L Glucose 123 H POC Glucose 127 H Calcium 7.4 L Phosphorus 1.80 L Magnesium Direct Bilirubin AST C-Reactive Protein Serum Total Protein Total Protein Albumin Prealbumin Fzghi-6-Dsegjsfqo Mqext-2-Rifguuesl Gamma Globulins PEP Interpretation Urine Creatinine Urine Total Protein Digoxin 0.7 L Crossmatch 10/19/19 10/19/19 10/19/19 05:00 05:35 11:26 WBC RBC Hgb Hct RDW Plt Count Lymph % (Auto) [place] % (Auto) Lymph # [place] # Seg Neutrophils % Seg Neuts % (Manual) Lymphocytes % (Manual) Seg Neutrophils # Seg Neutrophils # Man Lymphocytes # (Manual) Monocytes # (Manual) POC ABG pH ABG pH 7.456 H POC ABG pCO2 POC ABG pO2 ABG pO2 78.8 L ABG HCO3 ABG Base Excess ABG Hemoglobin 5.6 L Oxyhemoglobin Sodium Potassium Chloride Carbon Dioxide BUN Creatinine Glucose POC Glucose 124 H 111 H Calcium Phosphorus Magnesium Direct Bilirubin AST C-Reactive Protein Serum Total Protein Total Protein Albumin Prealbumin Csqvs-2-Hqyvvuhjy Sjhjr-4-Xxpmdkcrp Gamma Globulins PEP Interpretation Urine Creatinine Urine Total Protein Digoxin Crossmatch 10/19/19 10/20/19 10/20/19 23:23 04:50 05:17 WBC RBC Hgb Hct RDW Plt Count Lymph % (Auto) [place] % (Auto) Lymph # [place] # Seg Neutrophils % Seg Neuts % (Manual) Lymphocytes % (Manual) Seg Neutrophils # Seg Neutrophils # Man Lymphocytes # (Manual) Monocytes # (Manual) POC ABG pH ABG pH POC ABG pCO2 POC ABG pO2 ABG pO2 ABG HCO3 ABG Base Excess ABG Hemoglobin Oxyhemoglobin Sodium Potassium Chloride 108.1 H Carbon Dioxide BUN Creatinine 0.4 L Glucose 134 H POC Glucose 129 H 123 H Calcium 7.1 L Phosphorus Magnesium Direct Bilirubin AST C-Reactive Protein Serum Total Protein Total Protein Albumin Prealbumin Fzggf-0-Dicdlpvzb Ikuar-2-Tuujbpzyv Gamma Globulins PEP Interpretation Urine Creatinine Urine Total Protein Digoxin Crossmatch 10/20/19 10/20/19 10/21/19 11:40 19:06 05:08 WBC RBC Hgb Hct RDW Plt Count Lymph % (Auto) [place] % (Auto) Lymph # [place] # Seg Neutrophils % Seg Neuts % (Manual) Lymphocytes % (Manual) Seg Neutrophils # Seg Neutrophils # Man Lymphocytes # (Manual) Monocytes # (Manual) POC ABG pH ABG pH POC ABG pCO2 POC ABG pO2 ABG pO2 ABG HCO3 ABG Base Excess ABG Hemoglobin Oxyhemoglobin Sodium Potassium Chloride Carbon Dioxide BUN Creatinine Glucose POC Glucose 139 H 117 H 131 H Calcium Phosphorus Magnesium Direct Bilirubin AST C-Reactive Protein Serum Total Protein Total Protein Albumin Prealbumin Vwjaz-4-Iygkkbtvy Xymvl-7-Ujxkueqru Gamma Globulins PEP Interpretation Urine Creatinine Urine Total Protein Digoxin Crossmatch 10/21/19 10/21/19 10/21/19 05:30 12:04 17:31 WBC RBC Hgb Hct RDW Plt Count Lymph % (Auto) [place] % (Auto) Lymph # [place] # Seg Neutrophils % Seg Neuts % (Manual) Lymphocytes % (Manual) Seg Neutrophils # Seg Neutrophils # Man Lymphocytes # (Manual) Monocytes # (Manual) POC ABG pH ABG pH POC ABG pCO2 POC ABG pO2 ABG pO2 ABG HCO3 ABG Base Excess ABG Hemoglobin Oxyhemoglobin Sodium Potassium Chloride 107.8 H Carbon Dioxide BUN Creatinine 0.5 L Glucose 119 H POC Glucose 119 H 110 H Calcium 7.6 L Phosphorus Magnesium Direct Bilirubin AST C-Reactive Protein Serum Total Protein Total Protein Albumin Prealbumin Vlqgs-9-Zbohofrcf Ttmvh-1-Yodgizbtk Gamma Globulins PEP Interpretation Urine Creatinine Urine Total Protein Digoxin Crossmatch 10/22/19 10/22/19 10/22/19 05:14 05:37 12:07 WBC RBC Hgb Hct RDW Plt Count Lymph % (Auto) [place] % (Auto) Lymph # [place] # Seg Neutrophils % Seg Neuts % (Manual) Lymphocytes % (Manual) Seg Neutrophils # Seg Neutrophils # Man Lymphocytes # (Manual) Monocytes # (Manual) POC ABG pH ABG pH POC ABG pCO2 POC ABG pO2 ABG pO2 ABG HCO3 ABG Base Excess ABG Hemoglobin Oxyhemoglobin Sodium Potassium Chloride Carbon Dioxide BUN Creatinine 0.5 L Glucose 116 H POC Glucose 110 H 126 H Calcium 7.7 L Phosphorus Magnesium Direct Bilirubin AST C-Reactive Protein Serum Total Protein Total Protein Albumin Prealbumin Atqnr-1-Larrnkdlw Ajmzy-5-Mdgktzjad Gamma Globulins PEP Interpretation Urine Creatinine Urine Total Protein Digoxin Crossmatch 10/22/19 10/22/19 10/23/19 18:36 23:19 04:39 WBC RBC Hgb Hct RDW Plt Count Lymph % (Auto) [place] % (Auto) Lymph # [place] # Seg Neutrophils % Seg Neuts % (Manual) Lymphocytes % (Manual) Seg Neutrophils # Seg Neutrophils # Man Lymphocytes # (Manual) Monocytes # (Manual) POC ABG pH ABG pH POC ABG pCO2 POC ABG pO2 ABG pO2 ABG HCO3 ABG Base Excess ABG Hemoglobin Oxyhemoglobin Sodium Potassium Chloride Carbon Dioxide BUN Creatinine Glucose POC Glucose 120 H 127 H 112 H Calcium Phosphorus Magnesium Direct Bilirubin AST C-Reactive Protein Serum Total Protein Total Protein Albumin Prealbumin Mwmfa-7-Ojegageyc Flpnx-1-Yxqbijvca Gamma Globulins PEP Interpretation Urine Creatinine Urine Total Protein Digoxin Crossmatch 10/23/19 10/23/19 10/23/19 04:47 05:15 10:44 WBC 18.3 H RBC 2.33 L Hgb 7.0 L Hct 21.5 L RDW 16.2 H Plt Count Lymph % (Auto) 4.9 L [place] % (Auto) 8.1 H Lymph # 0.9 L [place] # 1.5 H Seg Neutrophils % 86.7 H Seg Neuts % (Manual) Lymphocytes % (Manual) Seg Neutrophils # 15.9 H Seg Neutrophils # Man Lymphocytes # (Manual) Monocytes # (Manual) POC ABG pH ABG pH POC ABG pCO2 POC ABG pO2 ABG pO2 68.9 L ABG HCO3 28.7 H ABG Base Excess 3.4 H ABG Hemoglobin 6.6 L Oxyhemoglobin 94.1 L Sodium Potassium Chloride Carbon Dioxide BUN Creatinine 0.5 L Glucose 165 H POC Glucose Calcium 7.4 L Phosphorus Magnesium Direct Bilirubin AST C-Reactive Protein Serum Total Protein Total Protein Albumin Prealbumin Asalm-8-Quxuazdoi Edpyc-1-Tytmfgrcj Gamma Globulins PEP Interpretation Urine Creatinine Urine Total Protein Digoxin Crossmatch 10/23/19 10/23/19 10:44 11:46 WBC RBC Hgb Hct RDW Plt Count Lymph % (Auto) [place] % (Auto) Lymph # [place] # Seg Neutrophils % Seg Neuts % (Manual) Lymphocytes % (Manual) Seg Neutrophils # Seg Neutrophils # Man Lymphocytes # (Manual) Monocytes # (Manual) POC ABG pH ABG pH POC ABG pCO2 POC ABG pO2 ABG pO2 ABG HCO3 ABG Base Excess ABG Hemoglobin Oxyhemoglobin Sodium Potassium Chloride Carbon Dioxide BUN Creatinine Glucose POC Glucose 138 H Calcium Phosphorus Magnesium Direct Bilirubin 0.7 H AST C-Reactive Protein Serum Total Protein Total Protein 4.5 L Albumin 1.2 L Prealbumin Jfxru-0-Vzsilpstp Dovzu-1-Tksouxchj Gamma Globulins PEP Interpretation Urine Creatinine Urine Total Protein Digoxin Crossmatch
[2019-10-23] MEDS: AMIODARONE 200 MG TAB PO SCH (12:24)
--- NOTE | 2019-10-23 13:56 | Progress Note ---
Assessment and Plan Cultures 10/10/2019 surgical culture: No growth at 72 hours 10/13/2019 tracheal aspirate culture: No growth 10/13/2019 peritoneal fluid: Enterococcus species (S to Penicillin, Vancomycin) 10/15/2019 blood culture: no growth Assessment: 54 yo M PMhx CAD, COPD, recent complicated course of bowel perforation after a colonoscopy admitted with surgical site dehiscence of the fascia. Now with: 1. Acute sepsis - present with leukocytosis and tachycardia. Most likely secondary to fluid collection/abscess in the abdomen and anastomotic leak. 2. Intra-abdominal infection from anastomotic leak - s/p ex lap with closure of abdominal wall and wound vac placement (10/05/2019); s/p Re-exploration, washout , transection of colon, Abthera placement - 10/13/2019. s/p re-exploration and colostomy creation on 10/16/2019, intra-operatively was found to have "Small amount of continued leak from the old anastomotic site. Some contamination still present. Bowel was all viable". Back on OR on 10/19/2019, findings "small leak from stump staple line". OR again on 10/22/2019 for: Abdominal washout. Closure of abdominal fascia. Wound vac placement. Findings, "contamination from the sigmoid stump closure site." 3. COPD, acute respiratory failure: on the vent. 4. Penicillin allergy - likely not a true allergy, reviewed EMR for previous exposure to PCNs, patient received several days of Zosyn in 2018 without issue. Recs: - continue IV Zosyn 4.5 gm q6 hrs - continue Fluconazole 400mg q24h - CBC still elevated, likely reactive. Tentatively will plan to d/c abx in the next 48-72 hours now that abdomen has been closed. Julianna Pineda MD, FACP [facility] ([facility] C: [phone] O: [phone] F: [phone] Subjective Date of service: 10/23/19 Principal diagnosis: acute renal failure Interval history: No fever. Remains intubated, sedated on the vent. Otherwise stable. Went to OR yesterday for closure. Objective - Exam Narrative Exam: Physical Exam: Constitutional: sedated, intubated Head, Ears, Nose: Normocephalic, atraumatic. External ears, nose normal Eyes: Conjunctivae/corneas clear. No icterus. No ptosis. Neck: intubated Oral: intubated Cardiovascular: S1, S2 normal. Respiratory: Good air entry, few rhonchi bilaterally GI: Midline abdominal VAC. bowel sounds obscured by VAC related sound, Colostomy + drain + Musculoskeletal: anasarca, pedal edema + Skin: No rash or abscess Hem/Lymphatic: No palpable cervical or supraclavicular nodes. No lymphangitis Psych: no agitation Neurological: sedated, intubated, on vent - Constitutional Vitals: Vital Signs Temp Pulse Resp BP Pulse Ox 98.1 F 71 20 122/51 96 10/23/19 12:00 10/23/19 13:36 10/23/19 13:36 10/23/19 13:00 10/23/19 13:00 Temperature -Last 24 Hours Temperature 98.1 F Temperature 98.1 F Temperature 98.4 F Temperature 98.4 F Temperature 99.4 F Temperature 97.9 F Temperature 99.2 F Temperature 99.7 F - Labs CBC & Chem 7: 10/23/19 05:15 10/23/19 10:44 Labs: Abnormal lab results 10/22/19 10/22/19 10/22/19 Range/Units 12:07 18:36 23:19 WBC (4.5-11.0) K/mm3 RBC (3.65-5.03) M/mm3 Hgb (11.8-15.2) gm/dl Hct (35.5-45.6) % RDW (13.2-15.2) % Lymph % (Auto) (13.4-35.0) % [place] % (Auto) (0.0-7.3) % Lymph # (1.2-5.4) K/mm3 [place] # (0.0-0.8) K/mm3 Seg Neutrophils % (40.0-70.0) % Seg Neutrophils # (1.8-7.7) K/mm3 ABG pO2 (80.0-90.0) mm Hg ABG HCO3 (20.0-26.0) mmol/L ABG Base Excess (-2.0-3.0) mmol/L ABG Hemoglobin (14.0-18.0) gm/dl Oxyhemoglobin (95.0-99.0) % Creatinine (0.8-1.5) mg/dL Glucose (75-100) mg/dL POC Glucose 126 H 120 H 127 H (70-105) Calcium (8.4-10.2) mg/dL Direct Bilirubin (0-0.2) mg/dL Total Protein (6.3-8.2) g/dL Albumin (3.9-5) g/dL 10/23/19 10/23/19 10/23/19 Range/Units 04:39 04:47 05:15 WBC 18.3 H (4.5-11.0) K/mm3 RBC 2.33 L (3.65-5.03) M/mm3 Hgb 7.0 L (11.8-15.2) gm/dl Hct 21.5 L (35.5-45.6) % RDW 16.2 H (13.2-15.2) % Lymph % (Auto) 4.9 L (13.4-35.0) % [place] % (Auto) 8.1 H (0.0-7.3) % Lymph # 0.9 L (1.2-5.4) K/mm3 [place] # 1.5 H (0.0-0.8) K/mm3 Seg Neutrophils % 86.7 H (40.0-70.0) % Seg Neutrophils # 15.9 H (1.8-7.7) K/mm3 ABG pO2 68.9 L (80.0-90.0) mm Hg ABG HCO3 28.7 H (20.0-26.0) mmol/L ABG Base Excess 3.4 H (-2.0-3.0) mmol/L ABG Hemoglobin 6.6 L (14.0-18.0) gm/dl Oxyhemoglobin 94.1 L (95.0-99.0) % Creatinine (0.8-1.5) mg/dL Glucose (75-100) mg/dL POC Glucose 112 H (70-105) Calcium (8.4-10.2) mg/dL Direct Bilirubin (0-0.2) mg/dL Total Protein (6.3-8.2) g/dL Albumin (3.9-5) g/dL 10/23/19 10/23/19 10/23/19 Range/Units 10:44 10:44 11:46 WBC (4.5-11.0) K/mm3 RBC (3.65-5.03) M/mm3 Hgb (11.8-15.2) gm/dl Hct (35.5-45.6) % RDW (13.2-15.2) % Lymph % (Auto) (13.4-35.0) % [place] % (Auto) (0.0-7.3) % Lymph # (1.2-5.4) K/mm3 [place] # (0.0-0.8) K/mm3 Seg Neutrophils % (40.0-70.0) % Seg Neutrophils # (1.8-7.7) K/mm3 ABG pO2 (80.0-90.0) mm Hg ABG HCO3 (20.0-26.0) mmol/L ABG Base Excess (-2.0-3.0) mmol/L ABG Hemoglobin (14.0-18.0) gm/dl Oxyhemoglobin (95.0-99.0) % Creatinine 0.5 L (0.8-1.5) mg/dL Glucose 165 H (75-100) mg/dL POC Glucose 138 H (70-105) Calcium 7.4 L (8.4-10.2) mg/dL Direct Bilirubin 0.7 H (0-0.2) mg/dL Total Protein 4.5 L (6.3-8.2) g/dL Albumin 1.2 L (3.9-5) g/dL - Imaging and cardiology Chest x-ray: report reviewed, image reviewed (b/l effusions)
--- NOTE | 2019-10-23 14:18 | Progress Note ---
Assessment and Plan Assessment and plan: 54 yo male with hx of CAD, [place], emphysema, COPD who presented with prolonged complicated course as a result of a bowel perforation. On admission, it was reported that a portion of his intestines protruded through his wound after severe cough. He has had multiple surgeries since admission. Dehiscence of closure of fascia * Went to OR for ex lap with closure of abdominal wall and wound vac placement ( 10/05) * Continued to decline with possible Air vs fluid, 10/10/19 IR went in and placed two drains, Noted to have possible fecal material * Returned to the OR 10/13/19 due to concern for intra-abdominal infection and was found to have with heavy contamination of abdomen patent had disruption of bowel anastomosis, abdominal washout, abthera placement and colon stapled transection and left bowel enterotomy from anastomosis completely open * Returned to OR on 10/16/19 for abdominal washout, Partial Omentectomy, Partial Colectomy, Colostomy Creation and AbThera Placement * cont wound care Severe sepsis secondary to bowel leak at anastomosis site/PNA -cont IV zosyn and fluconazole -surgical culture positive for enterococcus duras -blood cultures neg Acute Respiratory failure with hypoxia -on MV support -failed weaning trial on 10/19/19 -Broadcast Journalist following Left lower lobe pneumonia -Continue IV antibiotic -CTA chest showed left lower lobe consolidation with pleural effusion GUILLERMO on CRF -probably ATN due to sepsis -Improving, will monitor -SPEP and UPEP pending -No hydronephrosis on CT -[place] in place, monitor I/O's Severe Metabolic acidosis -Improved Acute Toxic Metabolic Encephalopathy/Delirium Tremens -Started on CIWA protocol due to hx of ETOH abuse, 6packs a day -Head CT scan negative for acute findings Hyperkalemia -Resolved Hyponatremia/hypernatremia -Improved -IVF d/francoise Acute blood loss anemia -H/H stable -Continue to monitor H&H and transfuse for hb<7 SVT, Atrial fib/flutter with RVR -treated with adenosine x1 -off amiodarone and cardizem drip. On oral amiodarone and IV Lopressor. -HR currently controlled -Cardiology following Hypotension -Off esmolol drip -s/p IV fluid boluses, BP stable Hypophosphatemia -will monitor level Hx of Hypertension -Stable Hyperlipidemia -stable Atypical chest pain -probably secondary to pneumonitis -troponin levels neg Hx of FL/CAD -s/p PCI of the circumflex and second vessel POBA of the distal LAD occlusion. Left ventricle fraction of 45-50%. Morbid obesity with BMI of 45.4 -Lifestyle modification recommended COPD -Stable -cont neb tx Moderate Protein calorie malnutrition secondary to surgery -On TPN -Nutrition following Tobacco abuse -Cessation recommended Morbid obesity with BMI of 45.4 -Lifestyle modification recommended DVT and GI ppx: Lovenox/PPI Disp: Very poor prognosis. d/c per clinical course Critical time spent: 35 mins History Interval history: Patient is intubated and nonverbal. Overnight, he was started on sedative agents bs he was bitting on his tube Hospitalist Physical - Constitutional Vitals: Temp Pulse Resp BP Pulse Ox 98.1 F 71 19 110/47 95 10/23/19 12:00 10/23/19 14:00 10/23/19 14:00 10/23/19 14:00 10/23/19 14:00 General appearance: Present: no acute distress, obese - EENT Eyes: Present: PERRL ENT: other (pt is intubated) - Neck Neck: Present: supple - Respiratory Respiratory effort: normal Respiratory: bilateral: diminished, rales (bibasilar) - Cardiovascular Rhythm: regular Heart Sounds: Present: S1 & S2 - Extremities Extremity abnormal: edema (generalized) - Abdominal General gastrointestinal: soft, normal bowel sounds, other (surgical wound clean. drain and colostomy bag noted) - Psychiatric Psychiatric: other (unable to assess, pt is intubated and sedated) - Neurologic Neurologic: other (pt is intubated and sedated) Results - Labs CBC & Chem 7: 10/23/19 05:15 10/23/19 10:44 Labs: Laboratory Last Values WBC 18.3 K/mm3 (4.5-11.0) H 10/23/19 05:15 RBC 2.33 M/mm3 (3.65-5.03) L 10/23/19 05:15 Hgb 7.0 gm/dl (11.8-15.2) L 10/23/19 05:15 Hct 21.5 % (35.5-45.6) L 10/23/19 05:15 MCV 92 fl (84-94) 10/23/19 05:15 MCH 30 pg (28-32) 10/23/19 05:15 MCHC 33 % (32-34) 10/23/19 05:15 RDW 16.2 % (13.2-15.2) H 10/23/19 05:15 Plt Count 301 K/mm3 (140-440) 10/23/19 05:15 Lymph % (Auto) 4.9 % (13.4-35.0) L 10/23/19 05:15 Amelia % (Auto) 8.1 % (0.0-7.3) H 10/23/19 05:15 Eos % (Auto) 0.2 % (0.0-4.3) 10/23/19 05:15 Baso % (Auto) 0.1 % (0.0-1.8) 10/23/19 05:15 Lymph # 0.9 K/mm3 (1.2-5.4) L 10/23/19 05:15 Amelia # 1.5 K/mm3 (0.0-0.8) H 10/23/19 05:15 Eos # 0.0 K/mm3 (0.0-0.4) 10/23/19 05:15 Baso # 0.0 K/mm3 (0.0-0.1) 10/23/19 05:15 Add Manual Diff Complete 10/16/19 09:20 Total Counted 100 10/16/19 09:20 Seg Neutrophils % 86.7 % (40.0-70.0) H 10/23/19 05:15 Seg Neuts % (Manual) 79.0 % (40.0-70.0) H 10/16/19 09:20 Band Neutrophils % 12.0 % 10/16/19 09:20 Lymphocytes % (Manual) 4.0 % (13.4-35.0) L 10/16/19 09:20 Reactive Lymphs % (Man) 0 % 10/16/19 09:20 Monocytes % (Manual) 2.0 % (0.0-7.3) 10/16/19 09:20 Eosinophils % (Manual) 0 % (0.0-4.3) 10/16/19 09:20 Basophils % (Manual) 0 % (0.0-1.8) 10/16/19 09:20 Metamyelocytes % 2.0 % 10/16/19 09:20 Myelocytes % 1.0 % 10/16/19 09:20 Promyelocytes % 0 % 10/16/19 09:20 Blast Cells % 0 % 10/16/19 09:20 Nucleated RBC % Not Reportable 10/16/19 09:20 Seg Neutrophils # 15.9 K/mm3 (1.8-7.7) H 10/23/19 05:15 Seg Neutrophils # Man 11.5 K/mm3 (1.8-7.7) H 10/16/19 09:20 Band Neutrophils # 1.8 K/mm3 10/16/19 09:20 Lymphocytes # (Manual) 0.6 K/mm3 (1.2-5.4) L 10/16/19 09:20 Abs React Lymphs (Man) 0.0 K/mm3 10/16/19 09:20 Monocytes # (Manual) 0.3 K/mm3 (0.0-0.8) 10/16/19 09:20 Eosinophils # (Manual) 0.0 K/mm3 (0.0-0.4) 10/16/19 09:20 Basophils # (Manual) 0.0 K/mm3 (0.0-0.1) 10/16/19 09:20 Metamyelocytes # 0.3 K/mm3 10/16/19 09:20 Myelocytes # 0.1 K/mm3 10/16/19 09:20 Promyelocytes # 0.0 K/mm3 10/16/19 09:20 Blast Cells # 0.0 K/mm3 10/16/19 09:20 WBC Morphology Not Reportable 10/16/19 09:20 Hypersegmented Neuts Not Reportable 10/16/19 09:20 Hyposegmented Neuts Not Reportable 10/16/19 09:20 Hypogranular Neuts Not Reportable 10/16/19 09:20 Smudge Cells Not Reportable 10/16/19 09:20 Toxic Granulation Not Reportable 10/16/19 09:20 Toxic Vacuolation Not Reportable 10/16/19 09:20 Dohle Bodies Not Reportable 10/16/19 09:20 Pelger-Huet Anomaly Not Reportable 10/16/19 09:20 Andres Rods Not Reportable 10/16/19 09:20 Platelet Estimate Consistent w auto 10/16/19 09:20 Clumped Platelets Not Reportable 10/16/19 09:20 Plt Clumps, EDTA Not Reportable 10/16/19 09:20 Large Platelets Not Reportable 10/16/19 09:20 Giant Platelets Not Reportable 10/16/19 09:20 Platelet Satelliting Not Reportable 10/16/19 09:20 Plt Morphology Comment Not Reportable 10/16/19 09:20 RBC Morphology Not Reportable 10/16/19 09:20 Dimorphic RBCs Not Reportable 10/16/19 09:20 Polychromasia Few 10/16/19 09:20 Hypochromasia Few 10/16/19 09:20 Poikilocytosis Not Reportable 10/16/19 09:20 Anisocytosis Not Reportable 10/16/19 09:20 Microcytosis Not Reportable 10/16/19 09:20 Macrocytosis Not Reportable 10/16/19 09:20 Spherocytes Not Reportable 10/16/19 09:20 Pappenheimer Bodies Not Reportable 10/16/19 09:20 Sickle Cells Not Reportable 10/16/19 09:20 Target Cells Few 10/16/19 09:20 Tear Drop Cells Not Reportable 10/16/19 09:20 Ovalocytes Not Reportable 10/16/19 09:20 Helmet Cells Not Reportable 10/16/19 09:20 [place]a Bodies Not Reportable 10/16/19 09:20 [place] Rings Not Reportable 10/16/19 09:20 [place] Cells Not Reportable 10/16/19 09:20 Bite Cells Not Reportable 10/16/19 09:20 Crenated Cell Not Reportable 10/16/19 09:20 Elliptocytes Not Reportable 10/16/19 09:20 Acanthocytes (Spur) Not Reportable 10/16/19 09:20 Rouleaux Not Reportable 10/16/19 09:20 Hemoglobin C Crystals Not Reportable 10/16/19 09:20 Schistocytes Not Reportable 10/16/19 09:20 Malaria parasites Not Reportable 10/16/19 09:20 Toni Bodies Not Reportable 10/16/19 09:20 Hem Pathologist Commnt No 10/16/19 09:20 POC ABG pH 7.310 (7.35-7.45) L 10/17/19 05:41 ABG pH 7.390 pH Units (7.350-7.450) 10/23/19 04:47 POC ABG pCO2 52.8 (35-45) H 10/17/19 05:41 ABG pCO2 48.4 mm Hg 10/23/19 04:47 POC ABG pO2 70 (80-105) L 10/17/19 05:41 ABG pO2 68.9 mm Hg (80.0-90.0) L 10/23/19 04:47 POC ABG HCO3 26.6 (22-26 mml/L) 10/17/19 05:41 ABG HCO3 28.7 mmol/L (20.0-26.0) H 10/23/19 04:47 POC ABG Total CO2 28 (23-27mmol/L) 10/17/19 05:41 POC ABG O2 Sat 92 10/17/19 05:41 ABG O2 Saturation 96.6 % (95.0-99.0) 10/23/19 04:47 ABG O2 Content 8.8 (0.0-44) 10/23/19 04:47 POC ABG Base Excess 0 ((-2) - (+3)mmol/L) 10/17/19 05:41 ABG Base Excess 3.4 mmol/L (-2.0-3.0) H 10/23/19 04:47 ABG Hemoglobin 6.6 gm/dl (14.0-18.0) L 10/23/19 04:47 ABG Carboxyhemoglobin 2.1 % (0.0-5.0) 10/23/19 04:47 ABG Methemoglobin 0.5 % (0.0-1.5) 10/23/19 04:47 Oxyhemoglobin 94.1 % (95.0-99.0) L 10/23/19 04:47 FiO2 40 % 10/23/19 04:47 Sodium 139 mmol/L (137-145) 10/23/19 10:44 Potassium 3.6 mmol/L (3.6-5.0) 10/23/19 10:44 Chloride 100.6 mmol/L (98-107) 10/23/19 10:44 Carbon Dioxide 25 mmol/L (22-30) 10/23/19 10:44 Anion Gap 17 mmol/L 10/23/19 10:44 BUN 18 mg/dL (9-20) 10/23/19 10:44 Creatinine 0.5 mg/dL (0.8-1.5) L 10/23/19 10:44 Estimated GFR > 60 ml/min 10/23/19 10:44 BUN/Creatinine Ratio 36 % 10/23/19 10:44 Glucose 165 mg/dL (75-100) H 10/23/19 10:44 POC Glucose 138 (70-105) H 10/23/19 11:46 Hemoglobin A1c 5.7 % (4-6) 10/06/19 05:36 Lactic Acid 1.10 mmol/L (0.7-2.0) 10/13/19 04:20 Calcium 7.4 mg/dL (8.4-10.2) L 10/23/19 10:44 Ionized Calcium 5.2 mg/dL (4.8-5.6) 10/18/19 07:41 Phosphorus 3.50 mg/dL (2.5-4.5) 10/23/19 05:15 Magnesium 1.80 mg/dL (1.7-2.3) 10/23/19 05:15 Total Bilirubin 0.80 mg/dL (0.1-1.2) 10/23/19 10:44 Direct Bilirubin 0.7 mg/dL (0-0.2) H 10/23/19 10:44 Indirect Bilirubin 0.1 mg/dL 10/23/19 10:44 AST 19 units/L (5-40) 10/23/19 10:44 ALT 11 units/L (7-56) 10/23/19 10:44 Alkaline Phosphatase 86 units/L (35-129) 10/23/19 10:44 Ammonia 49.0 umol/L (25-60) 10/13/19 04:20 Troponin T < 0.010 ng/mL (0.00-0.029) 10/09/19 17:23 C-Reactive Protein 30.60 mg/dL (0.00-1.30) H 10/15/19 04:32 Serum Total Protein 5.2 g/dL (6.1-8.1) L 10/11/19 09:00 Total Protein 4.5 g/dL (6.3-8.2) L 10/23/19 10:44 Albumin 1.2 g/dL (3.9-5) L 10/23/19 10:44 Albumin/Globulin Ratio 0.4 % 10/23/19 10:44 Prealbumin 0.030 g/L (0.200-0.400) L 10/15/19 04:32 Arnhk-7-[id number] See scanned result 10/11/19 Unknown [id number] See scanned result 10/11/19 Unknown Beta Globulins See scanned result 10/11/19 Unknown Gamma Globulins See scanned result 10/11/19 Unknown Abnorm Protein Band 1 see below 10/11/19 09:00 PEP Interpretation See scanned result 10/11/19 Unknown Triglycerides 114 mg/dL (2-149) 10/15/19 04:32 Urine Color Obdulia (Yellow) 10/11/19 06:23 Urine Turbidity Cloudy (Clear) 10/11/19 06:23 Urine pH 5.0 (5.0-7.0) 10/11/19 06:23 Ur Specific [place] 1.018 (1.003-1.030) 10/11/19 06:23 Urine Protein 30 mg/dl mg/dL (Negative) 10/11/19 06:23 Urine Glucose (UA) Neg mg/dL (Negative) 10/11/19 06:23 Urine Ketones Neg mg/dL (Negative) 10/11/19 06:23 Urine Blood Mod (Negative) 10/11/19 06:23 Urine Nitrite Neg (Negative) 10/11/19 06:23 Urine Bilirubin Neg (Negative) 10/11/19 06:23 Urine Urobilinogen < 2.0 mg/dL (<2.0) 10/11/19 06:23 Ur Leukocyte Esterase Neg (Negative) 10/11/19 06:23 Urine WBC (Auto) 3.0 /HPF (0.0-6.0) 10/11/19 06:23 Urine RBC (Auto) 3.0 /HPF (0.0-6.0) 10/11/19 06:23 Urine Bacteria (Auto) 1+ /HPF (Negative) 10/11/19 06:23 Urine Eosinophils None seen (None Seen) 10/11/19 06:23 Ur Random Creatinine See scanned result 10/11/19 Unknown U Random Total Protein See scanned result 10/11/19 Unknown Urine Creatinine 116.8 mg/dL (0.1-20.0) H 10/11/19 06:23 Urine Creatinine 118.2 mg/dL (0.1-20.0) H 10/11/19 06:23 Protein/Creatinin Ratio See scanned result 10/11/19 Unknown Urine Sodium 14 mmol/L 10/11/19 06:23 Urine Total Protein 104 mg/dL (5-11.8) H 10/11/19 06:23 Urine Total Protein 105 mg/dL (5-11.8) H 10/11/19 06:23 U Abnormal Prot Band 1 See scanned result 10/11/19 Unknown U Abnormal Prot Band 2 See scanned result 10/11/19 Unknown U Abnormal Prot Band 3 See scanned result 10/11/19 Unknown Digoxin 0.7 ng/mL (0.9-2.0) L 10/19/19 04:21 Blood Type A POSITIVE 10/23/19 11:50 Antibody Screen Negative 10/23/19 11:50 Crossmatch See Detail 10/23/19 11:50 Active Medications - Current Medications Current Medications: Generic Name Dose Route Start Last Admin Trade Name Freq PRN Reason Stop Dose Admin Acetaminophen 650 mg 10/15/19 10:00 10/17/19 08:18 Tylenol [place] 650 mg Q4H PRN Administration Pain MILD(1-3)/Fever >100.5/ROMANO Albumin Human 25 gm 10/24/19 00:01 Alburx 25% (Albumin) IV 10/24/19 18:01 Q6HR VERÓNICA Albuterol 2.5 mg 10/05/19 21:36 Proventil IH Q4HRT PRN Shortness Of Breath Albuterol/Ipratropium 1 ampul 10/06/19 02:00 10/23/19 13:33 Duoneb *Not For Prn Use* IH 1 ampul Q6HRT VERÓNICA Administration Amiodarone HCl 200 mg 10/23/19 13:00 10/23/19 12:24 Cordarone PO 200 mg QDAY VERÓNICA Administration Lipase/Protease/Amylase 1 each 10/20/19 10:37 Pancremeeta Moreno 10,500 Unit FEEDTUBE PRN PRN For Clogged Feeding Tube Arformoterol Tartrate 15 mcg 10/06/19 08:30 10/23/19 07:44 Brovana Nebu IH 15 mcg Q12HRT VERÓNICA Administration Budesonide 0.5 mg 10/07/19 12:20 10/23/19 07:44 Pulmicort IH 0.5 mg Q12HRT VERÓNICA Administration Enoxaparin Sodium 40 mg 10/22/19 22:00 10/22/19 21:34 Enoxaparin SUB-Q 40 mg QDAY@2200 VERÓNICA Administration Fluconazole 200 mls @ 100 mls/hr 10/12/19 11:00 10/23/19 09:14 Diflucan IV 100 mls/hr Q24HR VERÓNICA Administration Protocol Fentanyl Citrate 2,000 mcg in 100 mls @ 6.85 mls/hr 10/14/19 03:00 10/23/19 13:24 Fentanyl Drip Premix IV 4 mcg/kg/hr TITR VERÓNICA 27.4 mls/hr Administration Protocol 1 MCG/KG/HR Piperacillin Sod/Tazobactam Sod 4.5 gm in 100 mls @ 200 mls/hr 10/15/19 13:00 10/23/19 12:22 Zosyn/Ns 4.5gm/100ml IV 200 mls/hr Q6HR VERÓNICA Administration Protocol Propofol 1,000 mg in 100 mls @ 4.215 mls/hr 10/22/19 10:00 10/23/19 13:23 Diprivan 10 Mg/Ml IV 20 mcg/kg/min TITR VERÓNICA 16.86 mls/hr Titration Protocol 5 MCG/KG/MIN Amino Acids/Electrolytes/Dextrose 2,400 mls @ 100 mls/hr 10/22/19 20:00 10/22/19 20:20 Tpn Adult IV 10/23/19 19:59 100 mls/hr DAILY@1999 VERÓNICA Administration Protocol Amino Acids/Electrolytes/Dextrose 2,400 mls @ 100 mls/hr 10/23/19 20:00 Tpn Adult IV 10/24/19 19:59 DAILY@1999 VERÓNICA Protocol Sodium Chloride 500 mls @ 0 mls/hr 10/23/19 12:03 Nacl 0.9% 500 Ml IV 10/23/19 23:59 ONCE VERÓNICA As Directed Insulin Human Lispro 0 unit 10/14/19 12:00 10/23/19 12:09 Humalog SUB-Q Not Given Q6HR [facility] Protocol Metoprolol Tartrate 2.5 mg 10/15/19 15:34 10/18/19 00:05 Metoprolol IV 2.5 mg Q4HR PRN Administration HR >130 Metoprolol Tartrate 5 mg 10/19/19 13:00 10/23/19 12:22 Metoprolol IV 5 mg Q8H VERÓNICA Administration Multi-Ingred Cream/Lotion/Oil/Oint 1 applic 10/14/19 02:19 Artificial Tears Ophth Oint OU Q4HR PRN Dry Eye(s) Ondansetron HCl 4 mg 10/05/19 21:22 10/11/19 18:20 Zofran IV 4 mg Q3H PRN Administration Nausea And Vomiting Pantoprazole Sodium 40 mg 10/15/19 10:00 10/23/19 09:17 Protonix IV 40 mg QDAY VERÓNICA Administration Simple Syrup 15 ml 10/20/19 10:37 Simple Syrup FEEDTUBE PRN PRN Hypoglycemia Simple Syrup 30 ml 10/20/19 10:37 Simple Syrup FEEDTUBE PRN PRN Hypoglycemia Sodium Bicarbonate 325 mg 10/20/19 10:37 Sodium Bicarbonate FEEDTUBE PRN PRN For Clogged Feeding Tube Sodium Chloride 10 ml 10/05/19 21:22 10/19/19 09:29 Sodium Chloride Flush Syringe 10 Ml IV 10 ml PRN PRN Administration LINE FLUSH Nutrition/Malnutrition Assess - Dietary Evaluation Nutrition/Malnutrition Findings: Nutrition Notes Start: 10/08/19 11:36 Freq: Status: Active Protocol: Document 10/23/19 11:47 CC (Rec: 10/23/19 11:55 CC [id number]) Co-Sign 10/23/19 11:47 LP Nutrition Notes Initial or Follow up Reassessment Current Diagnosis Acute Kidney Injury,COPD, Hypertension Other Pertinent Diagnosis intra-abdominal infection, disruption of bowel anastomosis, LE edema Current Diet CPN at 100 ml/hr + Vital AF 1. 2 at 10 ml/hr Labs/Tests Cr 0.5 Pertinent Medications Propofol (111kcal) Height 6 ft Weight 140.5 kg [place] Body Weight (kg) 80.90 BMI 42.0 Weight Status Morbidly Obese Subjective/Other Information CPN day 10. Vital AF running at 10 ml/hr at time of visit. Percent of energy/protein needs met: 60%/74% Burn Absent Trauma Absent GI Symptoms None Current % PO Negligible Minimum of two criteria No Fluid Accumulation Mild (non-severe) #2 Nutrition Diagnosis Inadequate oral intake Diagnosis Progress(for reassessment Continues documentation) #1 Nutrition Diagnosis Increased nutrient needs ( specify in comment below) Diagnosis Progress(for reassessment Continues documentation) Is patient on ventilator? Yes Is Patient Ambulatory and/or Out of Bed No REE-(Cowley-St. Jeor-confined to bed) 2731.296 Kcal/Kg value to use for calculation 14 Approximate Energy Requirements Using 1967 kcal/Kg Calculation Used for Recommendations Kcal/kg Additional Notes Protein: 202g (up to 2.5 g/kg IBW 80.9 kg) Pay attention to renal issues Fluid: 1 ml/kcal or per MD Nutrition Intervention Change Diet Order: Continue CPN and trickle feeds Vital 1.2 at 10ml/hr Flush 50ml q6h Nutrition Support: CPN at 100ml/hr: 110mEq K, MVI , MTE, osmolarity 1188 Kcal 1,280 Protein (gm) 150 Carbohydrates (gm) 200 Fat (gm) 0 Fluid (mL) 2,400 Fiber (gm) 0 Goal #1 Meet energy and protein needs as best as possible via CPN and TF Goal #2 TF advancement Anticipated Discharge Needs: unable to determine at this time Follow-Up By: 10/24/19 Additional Comments Labs in AM: BMP, Mg, Phos Follow for TF tolerance, advancement
--- NOTE | 2019-10-23 14:41 | Event Note ---
Date: 10/23/19 Planned recheck - Drain output is minimal and does not appear like bowel contents. Discussed assessment and plan with Dr. Negro. Updated .
--- NOTE | 2019-10-23 18:10 | Post Anesthesia Evaluation ---
- Post Anesthesia Evaluation Patient Participated: Yes Airway Patent: Yes Stable Respiratory Function: Yes Nausea/Vomiting: No Temp > 96.8F: Yes Pain Manageable: Yes Adequeate Hydration: No Anesthesia Complications: No Block Receding Appropriately: Not Applicable Patient on Ventilator: Yes (returned to ICU on Ventilator)
[2019-10-23] MEDS ORDERED: TOTAL PARENTERAL NUTRITION 2,400 ML IV SCH (20:00)
[2019-10-23] MEDS: ENOXAPARIN 40 MG/0.4 ML INJ SUB-Q SCH (21:45)
[2019-10-24] MEDS: PIPERACIL/TAZOBACTA 4.5/NS 100 4.5 GM/100 ML VIAL IV SCH ×3 (00:08→12:03)
[2019-10-24] MEDS: ALBUMIN HUMAN 25% (25 GM/100 ML) INJ IV SCH ×4 (00:18→18:19)
[2019-10-24] MEDS: INSULIN LISPRO 100 UNIT/ML SUB-Q SCH ×4 (00:22→23:59)
[2019-10-24] MEDS: fentaNYL DRIP Premix 2,000 MCG/100 ML BAG IV SCH ×7 (00:23→22:53)
[2019-10-24] MEDS: IPRATROPIUM/ALBUTEROL SULFATE 3 ML AMPUL.NEB IH SCH ×4 (01:19→20:44)
[2019-10-24] MEDS: PROPOFOL 1,000 MG/100 ML BOTTLE IV SCH ×6 (01:35→23:57)
[2019-10-24] MEDS: METOPROLOL TARTRATE 5 MG/5 ML INJ IV SCH ×3 (05:20→21:25)
[2019-10-24 06:10] LABS: BUN/Creatinine Ratio 36; Blood Urea Nitrogen 18 mg/dL (9-20); Hemolysis Index 1
[2019-10-24 06:40] LABS: Basophils % (Auto) 0.2 % (0.0-1.8); Eosinophils # (Auto) 0.1 K/mm3 (0.0-0.4); Eosinophils % (Auto) 0.6 % (0.0-4.3); Hematocrit 24.2 % (35.5-45.6); Lymphocytes # (Auto) 0.9 K/mm3 (1.2-5.4); Mean Corpuscular HGB Conc 33 % (32-34); Mean Corpuscular Volume 89 fl (84-94); Monocytes # (Auto) 1.2 K/mm3 (0.0-0.8); Monocytes % (Auto) 9.5 % (0.0-7.3); Platelet Count 278 K/mm3 (140-440); Red Blood Count 2.73 M/mm3 (3.65-5.03); Red Cell Distribution Width 17.9 % (13.2-15.2)
[2019-10-24] MEDS ORDERED: FUROSEMIDE 40 MG/4 ML INJ IV NR (07:14)
[2019-10-24] MEDS: ARFORMOTEROL 15 MCG/2 ML NEBU IH SCH ×2 (08:45→20:43)
[2019-10-24] MEDS: BUDESONIDE 0.5 MG/2 ML NEBU IH SCH ×2 (08:45→20:44)
[2019-10-24] MEDS: PANTOPRAZOLE 40 MG INJ IV SCH (09:42)
[2019-10-24] MEDS: AMIODARONE 200 MG TAB PO SCH (09:43)
[2019-10-24] MEDS: FLUCONAZOLE 400 MG 200 ML IV SCH (09:46)
--- NOTE | 2019-10-24 11:21 | Progress Note ---
Assessment and Plan - Patient Problems (1) Dehiscence of closure of fascia, superficial or muscular Current Visit: No Status: Acute Qualifiers: Encounter type: initial encounter Qualified Code(s): T81.32XA - Disruption of internal operation (surgical) wound, not elsewhere classified, initial encounter Plan to address problem: Pt stable. s/p ex lap with closure of abdominal wall and wound vac placement (10/05) - POD#17; s/p Re-exploration, washout, transection of colon, Abthera placement - 10/13 - POD#9; s/p abd washout, partial omentectomy, partial colectomy with colostomy - 10/16 POD#7. s/p abd washout, feeding tube placement, AbThera placement - 10/19 - POD#4; Abdominal washout and closure - 10/22 - POD#2 Overall, patient looks better today. BP better. Pt is less swollen. WBC is down today. Rec: 1) Neuro - sedated. Family states that he has not had a drink in 3 weeks. Perhaps withdrawal may not have been involved. Ativan currently held. Staff reports he is following commands. Currently on propofol 2) CV - BP improved. Hgb up 1 3) Resp - Vent support. 4) GI - Ostomy looks good. Sump drains and wound vac not consistent with previous fluid appearance when he has leaked. Sump drains are working properly. No obvious leak is seen today. I emptied each container into a basin to look at the fluid more closely. With the contamination from a bowel leak, the fluid was thick and dark yellow/brown in appearance. There was lots of particulate matter. The fluid that we are currently draining is very thin. Some of the color may be due to blood clots that were pulled out. Some is due to the fibrinous exudate that was in the canisters. I do not believe that this fluid is the same as what I have been seeing in the OR or what we used to see in the old ES drains. We will continue to monitor closely. Ok to start trickle feeds via the Jejunal port. Would not advance beyond trickle feeds (10cc/hr) at this time. 5) - BUN/Cr look good 6) ID - Abx per ID. Enterococcus on cultures. No Fevers. 7) Nutrition - TPN 8) DVT prophylaxis - SCDs. Lovenox 9) Family -spoke with this AM. Please call with questions. Subjective Date of service: 10/24/19 Patient Reports: Positive: afebrile, other (no events o/n) Objective Vital Signs - 12hr 10/24/19 10/24/19 10/24/19 00:00 00:25 01:00 Temperature 97.9 F Pulse Rate 79 84 72 Pulse Rate [ Anterior Bilateral Throughout] Pulse Rate [ 71 From Monitor] Respiratory 12 12 Rate Respiratory Rate [Anterior Bilateral Throughout] Blood Pressure 124/47 119/43 113/41 O2 Sat by Pulse 97 99 97 Oximetry 10/24/19 10/24/19 10/24/19 01:33 02:00 03:00 Temperature Pulse Rate 68 71 Pulse Rate [ 72 Anterior Bilateral Throughout] Pulse Rate [ From Monitor] Respiratory 20 19 Rate Respiratory 20 Rate [Anterior Bilateral Throughout] Blood Pressure 130/44 112/46 O2 Sat by Pulse 98 97 Oximetry 10/24/19 10/24/19 10/24/19 04:00 04:51 05:00 Temperature 98.7 F Pulse Rate 70 73 73 Pulse Rate [ Anterior Bilateral Throughout] Pulse Rate [ 70 From Monitor] Respiratory 19 20 Rate Respiratory Rate [Anterior Bilateral Throughout] Blood Pressure 112/47 119/42 110/43 O2 Sat by Pulse 97 100 98 Oximetry 10/24/19 10/24/19 10/24/19 05:20 06:00 07:00 Temperature Pulse Rate 76 67 67 Pulse Rate [ Anterior Bilateral Throughout] Pulse Rate [ From Monitor] Respiratory 20 15 Rate Respiratory Rate [Anterior Bilateral Throughout] Blood Pressure 113/50 108/42 114/43 O2 Sat by Pulse 97 96 Oximetry 10/24/19 08:00 Temperature 98.5 F Pulse Rate 65 Pulse Rate [ Anterior Bilateral Throughout] Pulse Rate [ From Monitor] Respiratory 20 Rate Respiratory Rate [Anterior Bilateral Throughout] Blood Pressure 110/40 O2 Sat by Pulse 97 Oximetry - General physical appearance no distress, no pain, other (intubated, sedated. Appears less swollen today) - Respiratory normal respiratory effort - Abdomen soft, tender, distended, other (wound vac in place with serosang drainage. Both sump drains with thin [place] fluid. ) - Labs 10/24/19 05:05 10/24/19 05:05 Diabetes panel 10/23/19 10/24/19 Range/Units 10:44 05:05 Sodium 144 (137-145) mmol/L Potassium 3.5 L (3.6-5.0) mmol/L Chloride 102.6 (98-107) mmol/L Carbon Dioxide 28 (22-30) mmol/L BUN 18 (9-20) mg/dL Creatinine 0.5 L (0.8-1.5) mg/dL Glucose 116 H (75-100) mg/dL Calcium 8.0 L (8.4-10.2) mg/dL AST 19 (5-40) units/L ALT 11 (7-56) units/L Alkaline Phosphatase 86 (35-129) units/L Total Protein 4.5 L (6.3-8.2) g/dL Albumin 1.2 L (3.9-5) g/dL Calcium panel 10/23/19 10/24/19 Range/Units 10:44 05:05 Calcium 8.0 L (8.4-10.2) mg/dL Phosphorus 4.00 (2.5-4.5) mg/dL Albumin 1.2 L (3.9-5) g/dL Pituitary panel 10/24/19 Range/Units 05:05 Sodium 144 (137-145) mmol/L Potassium 3.5 L (3.6-5.0) mmol/L Chloride 102.6 (98-107) mmol/L Carbon Dioxide 28 (22-30) mmol/L BUN 18 (9-20) mg/dL Creatinine 0.5 L (0.8-1.5) mg/dL Glucose 116 H (75-100) mg/dL Calcium 8.0 L (8.4-10.2) mg/dL Adrenal panel 10/23/19 10/24/19 Range/Units 10:44 05:05 Sodium 144 (137-145) mmol/L Potassium 3.5 L (3.6-5.0) mmol/L Chloride 102.6 (98-107) mmol/L Carbon Dioxide 28 (22-30) mmol/L BUN 18 (9-20) mg/dL Creatinine 0.5 L (0.8-1.5) mg/dL Glucose 116 H (75-100) mg/dL Calcium 8.0 L (8.4-10.2) mg/dL Total Bilirubin 0.80 (0.1-1.2) mg/dL AST 19 (5-40) units/L ALT 11 (7-56) units/L Alkaline Phosphatase 86 (35-129) units/L Total Protein 4.5 L (6.3-8.2) g/dL Albumin 1.2 L (3.9-5) g/dL
[2019-10-24] MEDS ORDERED: POTASSIUM CHLORIDE 20 MEQ PACKET FEEDTUBE ONE ×2 (12:00→22:00)
--- NOTE | 2019-10-24 12:03 | Progress Note ---
<PIYUSH VERDIN - Last Filed: 10/24/19 12:02> Assessment and Plan Atrial fibrillation/flutter, spontaneously reverted to sinus rhythm treated with adenosine x1 on 10/15 on oral amiodarone and IV metoprolol for suppression Sepsis Severe abdominal pain s/p exploratory laparotomy, abdominal washout, closure of abdominal fascia with wound vac placement on 10/05 s/p abdominal washout with partial colectomy and left colostomy on 10/16 s/p abdominal washout and closure on 10/22 Recent colon resection for bowel perforation following a colonoscopy Atypical chest pain troponins are normal Hx of DE/CAD [facility] 12/2017: PCI of the circumflex and second vessel POBA of the distal LAD occlusion. Left ventricle fraction 45-50%. Tobacco abuse COPD Hypertension Hyperlipidemia Recommend: Continue medical management for atrial fibrillation suppression. Subjective Date of service: 10/24/19 Principal diagnosis: acute renal failure Interval history: Patient is alert with eyes open but remains intubated on the vent. Stable sinus rhythm on telemetry. Objective Vital Signs Temp Pulse Pulse Pulse Resp Resp Resp 10/24/19 11:00 72 20 10/24/19 10:00 78 17 10/24/19 09:00 67 20 10/24/19 08:00 98.5 F 65 20 10/24/19 07:00 67 15 10/24/19 06:00 67 20 10/24/19 05:20 76 10/24/19 05:00 73 20 10/24/19 04:51 73 10/24/19 04:00 98.7 F 70 70 19 10/24/19 03:00 71 19 10/24/19 02:00 68 20 10/24/19 01:33 72 20 10/24/19 01:00 72 12 10/24/19 00:25 84 10/24/19 00:00 97.9 F 79 71 12 10/23/19 23:00 68 13 10/23/19 22:02 69 21 10/23/19 22:00 69 14 20 10/23/19 21:54 74 10/23/19 21:00 69 16 10/23/19 20:10 66 20 10/23/19 20:00 98.6 F 66 65 20 10/23/19 19:55 67 10/23/19 19:01 68 21 10/23/19 18:41 97.9 F 69 17 10/23/19 18:11 98.5 F 70 22 10/23/19 18:00 71 20 10/23/19 17:41 98.6 F 72 18 10/23/19 17:11 97.7 F 65 21 10/23/19 17:00 66 17 10/23/19 16:56 98.3 F 66 15 10/23/19 16:42 97.8 F 10/23/19 16:40 98.3 F 67 20 10/23/19 16:21 97.8 F 68 19 10/23/19 16:00 98.5 F 68 68 21 10/23/19 15:56 69 10/23/19 15:51 98.2 F 69 21 10/23/19 15:21 97.7 F 71 18 10/23/19 15:00 73 19 10/23/19 14:51 98.4 F 76 17 10/23/19 14:36 98.5 F 76 14 10/23/19 14:00 71 19 10/23/19 13:36 71 20 10/23/19 13:00 69 22 10/23/19 12:22 75 BP Pulse Ox 10/24/19 11:00 117/44 97 10/24/19 10:00 124/51 96 10/24/19 09:00 114/45 97 10/24/19 08:00 110/40 97 10/24/19 07:00 114/43 96 10/24/19 06:00 108/42 97 10/24/19 05:20 113/50 10/24/19 05:00 110/43 98 10/24/19 04:51 119/42 100 10/24/19 04:00 112/47 97 10/24/19 03:00 112/46 97 10/24/19 02:00 130/44 98 10/24/19 01:33 10/24/19 01:00 113/41 97 10/24/19 00:25 119/43 99 10/24/19 00:00 124/47 97 10/23/19 23:00 117/44 98 10/23/19 22:02 113/43 97 10/23/19 22:00 113/43 96 10/23/19 21:54 119/54 10/23/19 21:00 122/47 98 10/23/19 20:10 10/23/19 20:00 114/43 98 10/23/19 19:55 117/42 96 10/23/19 19:01 119/43 97 10/23/19 18:41 121/47 98 10/23/19 18:11 120/45 97 10/23/19 18:00 120/45 96 10/23/19 17:41 110/50 96 10/23/19 17:11 116/48 97 10/23/19 17:00 118/51 96 10/23/19 16:56 118/47 97 10/23/19 16:42 10/23/19 16:40 118/47 97 10/23/19 16:21 115/40 96 10/23/19 16:00 123/55 100 10/23/19 15:56 123/55 98 10/23/19 15:51 116/48 97 10/23/19 15:21 121/50 98 10/23/19 15:00 127/50 97 10/23/19 14:51 118/49 98 10/23/19 14:36 110/49 96 10/23/19 14:00 110/47 95 10/23/19 13:36 10/23/19 13:00 122/51 96 10/23/19 12:22 121/50 - Physical Examination General: Other (intubated, on the vent) HEENT: Positive: PERRL Cardiac: Positive: Reg Rate and Rhythm Abdomen: Positive: Other (abdominal wound vac is in place) - Labs and Meds CBC 10/24/19 Range/Units 05:05 WBC 13.0 H (4.5-11.0) K/mm3 RBC 2.73 L (3.65-5.03) M/mm3 Hgb 8.0 L (11.8-15.2) gm/dl Hct 24.2 L (35.5-45.6) % Plt Count 278 (140-440) K/mm3 Lymph # 0.9 L (1.2-5.4) K/mm3 [place] # 1.2 H (0.0-0.8) K/mm3 Eos # 0.1 (0.0-0.4) K/mm3 Baso # 0.0 (0.0-0.1) K/mm3 Comprehensive Metabolic Panel 10/24/19 Range/Units 05:05 Sodium 144 (137-145) mmol/L Potassium 3.5 L (3.6-5.0) mmol/L Chloride 102.6 (98-107) mmol/L Carbon Dioxide 28 (22-30) mmol/L BUN 18 (9-20) mg/dL Creatinine 0.5 L (0.8-1.5) mg/dL Glucose 116 H (75-100) mg/dL Calcium 8.0 L (8.4-10.2) mg/dL <RADHA BAKER - Last Filed: 10/31/19 10:07> Assessment and Plan I have seen and evaluated the patient myself, and agree with the assessment and plan. Objective Vital Signs Temp Pulse Pulse Pulse Pulse Resp Resp 10/31/19 09:39 81 10/31/19 08:00 98.9 F 85 87 80 23 20 10/31/19 07:53 86 10/31/19 07:00 85 20 10/31/19 06:17 85 10/31/19 06:00 81 23 10/31/19 05:00 80 20 10/31/19 04:28 80 22 10/31/19 04:24 79 10/31/19 04:00 77 77 26 H 10/31/19 03:29 99.1 F 10/31/19 03:00 77 27 H 10/31/19 02:00 74 25 H 10/31/19 01:00 71 22 10/31/19 00:30 70 10/31/19 00:06 75 10/31/19 00:00 98.7 F 74 74 20 10/30/19 23:00 75 20 10/30/19 22:24 79 20 10/30/19 22:00 77 20 10/30/19 21:00 82 20 10/30/19 20:55 77 22 10/30/19 20:45 78 10/30/19 20:00 97.8 F 76 74 22 10/30/19 19:00 72 20 10/30/19 18:00 75 20 10/30/19 17:28 10/30/19 17:00 71 23 10/30/19 16:26 71 22 10/30/19 16:12 74 10/30/19 16:06 74 10/30/19 16:00 97.8 F 77 71 20 10/30/19 15:44 97.9 F 10/30/19 15:24 10/30/19 15:04 91 H 10/30/19 14:57 92 H 10/30/19 14:52 91 H 10/30/19 14:48 92 H 10/30/19 14:43 92 H 10/30/19 14:39 91 H 10/30/19 14:34 92 H 10/30/19 14:30 90 10/30/19 14:23 91 H 10/30/19 14:20 91 H 10/30/19 14:14 90 10/30/19 14:08 92 H 10/30/19 14:03 94 H 10/30/19 13:57 95 H 10/30/19 13:53 97 H 10/30/19 13:48 96 H 10/30/19 13:00 71 22 10/30/19 12:42 70 10/30/19 12:00 98.6 F 70 89 22 10/30/19 11:11 79 18 10/30/19 10:12 67 Resp BP BP Pulse Ox Pulse Ox 10/31/19 09:39 136/60 10/31/19 08:00 127/63 100 10/31/19 07:53 123/48 100 10/31/19 07:00 112/47 99 10/31/19 06:17 130/59 10/31/19 06:00 130/59 99 10/31/19 05:00 124/61 99 10/31/19 04:28 10/31/19 04:24 128/57 99 10/31/19 04:00 128/57 99 10/31/19 03:29 10/31/19 03:00 116/56 99 10/31/19 02:00 126/55 100 10/31/19 01:00 130/54 100 10/31/19 00:30 128/55 100 10/31/19 00:06 131/55 10/31/19 00:00 131/55 100 10/30/19 23:00 105/48 100 10/30/19 22:24 105/43 99 10/30/19 22:00 105/43 99 10/30/19 21:00 131/56 99 10/30/19 20:55 10/30/19 20:45 128/56 99 10/30/19 20:00 118/49 99 10/30/19 19:00 113/51 100 10/30/19 18:00 99/40 99 10/30/19 17:28 97 10/30/19 17:00 115/47 97 10/30/19 16:26 10/30/19 16:12 102/45 10/30/19 16:06 102/45 99 10/30/19 16:00 102/45 99 10/30/19 15:44 10/30/19 15:24 118/58 99 10/30/19 15:04 22 132/57 100 10/30/19 14:57 20 139/58 100 10/30/19 14:52 19 121/59 100 10/30/19 14:48 17 136/61 100 10/30/19 14:43 20 124/64 100 10/30/19 14:39 22 138/60 100 10/30/19 14:34 18 126/58 100 10/30/19 14:30 28 H 114/57 100 10/30/19 14:23 26 H 126/54 100 10/30/19 14:20 24 118/51 100 10/30/19 14:14 23 114/50 99 10/30/19 14:08 28 H 111/53 99 10/30/19 14:03 21 103/53 100 10/30/19 13:57 24 116/56 99 10/30/19 13:53 22 118/55 99 10/30/19 13:48 22 154/65 99 10/30/19 13:00 110/60 79 L 10/30/19 12:42 118/58 100 10/30/19 12:00 110/60 97 10/30/19 11:11 149/67 99 10/30/19 10:12 126/57 - Labs and Meds CBC 10/31/19 Range/Units 04:18 WBC 11.7 H (4.5-11.0) K/mm3 RBC 3.11 L (3.65-5.03) M/mm3 Hgb 9.0 L (11.8-15.2) gm/dl Hct 27.9 L (35.5-45.6) % Plt Count 308 (140-440) K/mm3 Comprehensive Metabolic Panel 10/31/19 Range/Units 04:18 Sodium 148 H (137-145) mmol/L Potassium 4.9 (3.6-5.0) mmol/L Chloride 108.7 H (98-107) mmol/L Carbon Dioxide 24 (22-30) mmol/L BUN 37 H (9-20) mg/dL Creatinine 0.7 L (0.8-1.5) mg/dL Glucose 102 H (75-100) mg/dL Calcium 8.6 (8.4-10.2) mg/dL
--- NOTE | 2019-10-24 12:14 | XRay Report ---
CHEST 1 VIEW INDICATION: resp. failure. COMPARISON: 10/23/2019 FINDINGS: Support devices: Right arm PICC terminates in the superior right atrium. Heart: Within normal limits. Lungs/Pleura: Bilateral congestive changes and small pleural effusions appear stable. No pneumothorax . Additional findings: None. IMPRESSION: No change Signer Name: Skinny Jacinto Jr, MD Signed: 10/24/2019 12:10 PM Workstation Name: [id number]
--- NOTE | 2019-10-24 13:07 | Progress Note ---
Assessment and Plan Cultures 10/10/2019 surgical culture: No growth at 72 hours 10/13/2019 tracheal aspirate culture: No growth 10/13/2019 peritoneal fluid: Enterococcus species (S to Penicillin, Vancomycin) 10/15/2019 blood culture: no growth Assessment: 54 yo M PMhx CAD, COPD, recent complicated course of bowel perforation after a colonoscopy admitted with surgical site dehiscence of the fascia. Now with: 1. Acute sepsis - present with leukocytosis and tachycardia. Most likely secondary to fluid collection/abscess in the abdomen and anastomotic leak. 2. Intra-abdominal infection from anastomotic leak - s/p ex lap with closure of abdominal wall and wound vac placement (10/05/2019); s/p Re-exploration, washout , transection of colon, Abthera placement - 10/13/2019. s/p re-exploration and colostomy creation on 10/16/2019, intra-operatively was found to have "Small amount of continued leak from the old anastomotic site. Some contamination still present. Bowel was all viable". Back on OR on 10/19/2019, findings "small leak from stump staple line". OR again on 10/22/2019 for: Abdominal washout. Closure of abdominal fascia. Wound vac placement. Findings, "contamination from the sigmoid stump closure site." 3. COPD, acute respiratory failure: on the vent. 4. Penicillin allergy - likely not a true allergy, reviewed EMR for previous exposure to PCNs, patient received several days of Zosyn in 2018 without issue. Recs: - CBC improved, remains afebrile. Will discontinue antibiotics today. Julianna Pineda MD, FACP [facility] ([facility] C: [phone] O: [phone] F: [phone] Subjective Date of service: 10/24/19 Principal diagnosis: acute renal failure Interval history: No fever. Remains intubated, on the vent. On trickle feeds. Objective - Exam Narrative Exam: Physical Exam: Constitutional: sedated, intubated Head, Ears, Nose: Normocephalic, atraumatic. External ears, nose normal Eyes: Conjunctivae/corneas clear. No icterus. No ptosis. Neck: intubated Oral: intubated Cardiovascular: S1, S2 normal. Respiratory: Good air entry, few rhonchi bilaterally GI: Midline abdominal VAC. bowel sounds obscured by VAC related sound, Colostomy + drains + Musculoskeletal: anasarca, pedal edema + Skin: No rash or abscess Hem/Lymphatic: No palpable cervical or supraclavicular nodes. No lymphangitis Psych: no agitation Neurological: sedated, intubated, on vent - Constitutional Vitals: Vital Signs Temp Pulse Resp BP Pulse Ox 97.7 F 72 20 117/44 97 10/24/19 12:00 10/24/19 11:00 10/24/19 11:00 10/24/19 11:00 10/24/19 11:00 Temperature -Last 24 Hours Temperature 97.7 F Temperature 98.5 F Temperature 98.7 F Temperature 97.9 F Temperature 98.6 F Temperature 97.9 F Temperature 98.5 F Temperature 98.6 F Temperature 97.7 F Temperature 98.3 F Temperature 97.8 F Temperature 98.3 F Temperature 97.8 F Temperature 98.5 F Temperature 98.2 F Temperature 97.7 F Temperature 98.4 F Temperature 98.4 F Temperature 98.5 F - Labs CBC & Chem 7: 10/24/19 05:05 10/24/19 05:05 Labs: Abnormal lab results 10/16/19 10/23/19 10/23/19 Range/Units 11:58 11:50 17:53 WBC (4.5-11.0) K/mm3 RBC (3.65-5.03) M/mm3 Hgb (11.8-15.2) gm/dl Hct (35.5-45.6) % RDW (13.2-15.2) % Lymph % (Auto) (13.4-35.0) % [place] % (Auto) (0.0-7.3) % Lymph # (1.2-5.4) K/mm3 [place] # (0.0-0.8) K/mm3 Seg Neutrophils % (40.0-70.0) % Seg Neutrophils # (1.8-7.7) K/mm3 Potassium (3.6-5.0) mmol/L Creatinine (0.8-1.5) mg/dL Glucose (75-100) mg/dL POC Glucose 137 H (70-105) Calcium (8.4-10.2) mg/dL Crossmatch See Detail See Detail 10/24/19 10/24/19 10/24/19 Range/Units 00:07 05:05 05:05 WBC 13.0 H (4.5-11.0) K/mm3 RBC 2.73 L (3.65-5.03) M/mm3 Hgb 8.0 L (11.8-15.2) gm/dl Hct 24.2 L (35.5-45.6) % RDW 17.9 H (13.2-15.2) % Lymph % (Auto) 7.0 L (13.4-35.0) % [place] % (Auto) 9.5 H (0.0-7.3) % Lymph # 0.9 L (1.2-5.4) K/mm3 [place] # 1.2 H (0.0-0.8) K/mm3 Seg Neutrophils % 82.7 H (40.0-70.0) % Seg Neutrophils # 10.7 H (1.8-7.7) K/mm3 Potassium 3.5 L (3.6-5.0) mmol/L Creatinine 0.5 L (0.8-1.5) mg/dL Glucose 116 H (75-100) mg/dL POC Glucose 110 H (70-105) Calcium 8.0 L (8.4-10.2) mg/dL Crossmatch 10/24/19 Range/Units 11:56 WBC (4.5-11.0) K/mm3 RBC (3.65-5.03) M/mm3 Hgb (11.8-15.2) gm/dl Hct (35.5-45.6) % RDW (13.2-15.2) % Lymph % (Auto) (13.4-35.0) % [place] % (Auto) (0.0-7.3) % Lymph # (1.2-5.4) K/mm3 [place] # (0.0-0.8) K/mm3 Seg Neutrophils % (40.0-70.0) % Seg Neutrophils # (1.8-7.7) K/mm3 Potassium (3.6-5.0) mmol/L Creatinine (0.8-1.5) mg/dL Glucose (75-100) mg/dL POC Glucose 159 H (70-105) Calcium (8.4-10.2) mg/dL Crossmatch
[2019-10-24] MEDS ORDERED: FUROSEMIDE 40 MG/4 ML INJ IV ONE ×2 (14:00→22:00)
--- NOTE | 2019-10-24 16:39 | Progress Note ---
Assessment and Plan 54 y/o male with anastomic leak 10/24: Responding well to lasix and protein therapy. Will give 2 more doses of lasix today. Consider one for tonight as well. Last albumin today at 1800. CXR is stable, still with layering bilateral pleural effusions. Will reassess again tomorrow. Reviewed all other water resource consultant notes. Spoke with sisters at bedside, updated and spoke with surgery. 10/23: Long discussion with surgery and via phone. Anasarca is likely from decreased oncotic pressure and immobility of several days now that abdomen is finally closed. Now fluid is essentially leaking into the interstitium now that the abdomen is shut and there is increased intra-abdominal pressure. Total Protein is 4.5 and albumin is 1.2. This is to be expected given current illness. Will attempt to increase oncotic pressure with 2 units of PRBC's and albumin infusions for the next 24 hours starting at midnight tonight. Will give lasix inbetween transfusions and then again tonight. CXR is consistent with pulmonary edema volume overload. Will continue vent for now and after significant volume removal then will attempt extubation. Discussed with and she understands. Will continue to monitor. Agree with trickle feeds and cards has switched amio over to PO to be given through the G-tube. If tolerates, hopeful to be rid of TPN soon as this is necessary but excessive volume as well. 10/22: Added diprovan as more sedation was needed. Hopefully once closed and no leaks, patient can be extubated. Cards very concerned about length of time for IV amio. Will discuss with surgery the time frame that gut can be used. 10/21: Will hold on weaning until abdomen is closed, especially knowing mental status is good. Will focus on pain control. Replace electrolytes. Appreciate Surgery recs and detail. Follow up any new recs from cards. Or tomorrow for closure 1. CV-tachycardia but stable BP. Was ok on Amio and Dilt but when BP started dropping, we stopped the dilt. Now rate back up and not controlled on 5. Spoke to nursing about increasing to 10. Continue fluid boluses for BP as needed. Trying not to start pressors if possible. 2. Pulm-stable on Vent. FiO2 down to 45% prior to go to OR. CXR shows right lower lobe airspace disease (10/15). Light green substance in ET tube has stopped. Continue current vent management. Wean once all surgeries are done. 3. GI-Going back to OR again on Tuesday for Washout. 4. Renal- Renal function and output have improved. Will continue to monitor. Had a large volume out that we are actively replacing. This may have added to hypotension this am. 5. Neuro- on rounds, per nursing, patient did not wake up during sedation vacation. Stopping all sedation now. If not able to control rate with drugs, could be related to pain. Spoke to nursing to use PRN pushes to see if this helps HR as well. If patient's mental state does not improve post all surgeries, may need CT head, EEG and neurology evaluation. 6. ID-continues to spike temps. ID following. Defer to them for repeat cultures. Blood has been negative. 7. Electrolytes-Reviewed renal note from yesterday. Overall prognosis is guarded. Will continue to follow. CCT 31 minutes. Subjective Date of service: 10/24/19 Principal diagnosis: acute renal failure Interval history: No acute events. Has responded well to the lasix and the protein therapy. Gave 2 units of PRBC's but response not appropriate but no evidence of bleeding though. Sedated but easily aroused. Sisters at bedside. Swelling has improved but still a significant amount. Objective Vital Signs - 12hr 10/24/19 10/24/19 10/24/19 04:51 05:00 05:20 Temperature Pulse Rate 73 73 76 Pulse Rate [ Anterior Bilateral Throughout] Respiratory 20 Rate Respiratory Rate [Anterior Bilateral Throughout] Blood Pressure 119/42 110/43 113/50 O2 Sat by Pulse 100 98 Oximetry 10/24/19 10/24/19 10/24/19 06:00 07:00 08:00 Temperature 98.5 F Pulse Rate 67 67 65 Pulse Rate [ Anterior Bilateral Throughout] Respiratory 20 15 20 Rate Respiratory Rate [Anterior Bilateral Throughout] Blood Pressure 108/42 114/43 110/40 O2 Sat by Pulse 97 96 97 Oximetry 10/24/19 10/24/19 10/24/19 08:45 08:55 09:00 Temperature Pulse Rate 72 67 Pulse Rate [ 76 Anterior Bilateral Throughout] Respiratory 20 Rate Respiratory 20 Rate [Anterior Bilateral Throughout] Blood Pressure 117/44 114/45 O2 Sat by Pulse 97 97 Oximetry 1210/24/19 10/24/19 10:00 11:00 12:00 Temperature 97.7 F Pulse Rate 78 72 71 Pulse Rate [ Anterior Bilateral Throughout] Respiratory 17 20 20 Rate Respiratory Rate [Anterior Bilateral Throughout] Blood Pressure 124/51 117/44 127/48 O2 Sat by Pulse 96 97 99 Oximetry 10/24/19 10/24/19 10/24/19 13:00 13:10 13:35 Temperature Pulse Rate 68 73 73 Pulse Rate [ Anterior Bilateral Throughout] Respiratory 20 Rate Respiratory Rate [Anterior Bilateral Throughout] Blood Pressure 127/44 127/44 127/44 O2 Sat by Pulse 98 98 Oximetry 10/24/19 15:36 Temperature Pulse Rate 69 Pulse Rate [ Anterior Bilateral Throughout] Respiratory Rate Respiratory Rate [Anterior Bilateral Throughout] Blood Pressure 117/47 O2 Sat by Pulse 98 Oximetry Constitutional: alert Eyes: non-icteric ENT: oropharynx moist Neck: supple Effort: normal Ascultation: Bilateral: diminished breath sounds Cardiovascular: regular rate and rhythm Gastrointestinal: tender Integumentary: normal Extremities: no cyanosis Neurologic: normal mental status, non-focal exam Psychiatric: mood appropriate, affect normal CBC and BMP: 10/24/19 05:05 10/24/19 05:05 ABG, PT/INR, D-dimer: ABG POC ABG pH 7.310 (7.35-7.45) L 10/17/19 05:41 ABG pH 7.390 pH Units (7.350-7.450) 10/23/19 04:47 POC ABG pCO2 52.8 (35-45) H 10/17/19 05:41 ABG pCO2 48.4 mm Hg 10/23/19 04:47 POC ABG pO2 70 (80-105) L 10/17/19 05:41 ABG pO2 68.9 mm Hg (80.0-90.0) L 10/23/19 04:47 POC ABG HCO3 26.6 (22-26 mml/L) 10/17/19 05:41 POC ABG Total CO2 28 (23-27mmol/L) 10/17/19 05:41 POC ABG O2 Sat 92 10/17/19 05:41 ABG O2 Saturation 96.6 % (95.0-99.0) 10/23/19 04:47 Abnormal lab findings: Abnormal Labs 10/06/19 10/06/19 10/07/19 05:36 05:36 05:54 WBC 21.8 H 21.5 H RBC 3.55 L Hgb 10.9 L Hct 32.7 L RDW Plt Count Lymph % (Auto) [place] % (Auto) Lymph # [place] # Seg Neutrophils % Seg Neuts % (Manual) 91.0 H Lymphocytes % (Manual) 2.0 L Seg Neutrophils # Seg Neutrophils # Man 19.8 H Lymphocytes # (Manual) 0.4 L Monocytes # (Manual) 1.1 H POC ABG pH ABG pH POC ABG pCO2 POC ABG pO2 ABG pO2 ABG HCO3 ABG Base Excess ABG Hemoglobin Oxyhemoglobin Sodium 135 L Potassium Chloride 95.9 L Carbon Dioxide BUN Creatinine 0.7 L Glucose POC Glucose Calcium Phosphorus Magnesium Direct Bilirubin AST C-Reactive Protein Serum Total Protein Total Protein 5.7 L Albumin 2.5 L Prealbumin Ixmgk-2-Zbqceqflb Pjphq-7-Hloyfpepz Gamma Globulins PEP Interpretation Triglycerides Urine Creatinine Urine Total Protein Digoxin Crossmatch 10/07/19 10/09/19 10/09/19 05:54 10:52 10:52 WBC 16.6 H RBC Hgb Hct RDW Plt Count 498 H Lymph % (Auto) [place] % (Auto) Lymph # [place] # Seg Neutrophils % Seg Neuts % (Manual) 93.0 H Lymphocytes % (Manual) 5.0 L Seg Neutrophils # Seg Neutrophils # Man 15.4 H Lymphocytes # (Manual) 0.8 L Monocytes # (Manual) POC ABG pH ABG pH POC ABG pCO2 POC ABG pO2 ABG pO2 ABG HCO3 ABG Base Excess ABG Hemoglobin Oxyhemoglobin Sodium Potassium Chloride 97.9 L Carbon Dioxide 20 L D BUN 23 H Creatinine 1.7 H D Glucose 109 H POC Glucose Calcium 8.1 L Phosphorus Magnesium Direct Bilirubin AST C-Reactive Protein Serum Total Protein Total Protein Albumin Prealbumin Fegtw-7-Bljvwnkef Grjeq-4-Txpjgosse Gamma Globulins PEP Interpretation Triglycerides Urine Creatinine Urine Total Protein Digoxin Crossmatch 10/09/19 10/10/19 10/10/19 17:23 05:30 05:30 WBC 14.6 H RBC Hgb 11.1 L Hct 33.5 L RDW Plt Count 527 H Lymph % (Auto) [place] % (Auto) Lymph # [place] # Seg Neutrophils % Seg Neuts % (Manual) Lymphocytes % (Manual) Seg Neutrophils # Seg Neutrophils # Man Lymphocytes # (Manual) Monocytes # (Manual) POC ABG pH ABG pH POC ABG pCO2 POC ABG pO2 ABG pO2 ABG HCO3 ABG Base Excess ABG Hemoglobin Oxyhemoglobin Sodium 130 L D Potassium 5.1 H Chloride 90.0 L 91.0 L Carbon Dioxide 20 L 20 L BUN 27 H 35 H Creatinine 1.9 H 2.0 H Glucose 104 H POC Glucose Calcium Phosphorus Magnesium Direct Bilirubin AST C-Reactive Protein Serum Total Protein Total Protein Albumin Prealbumin Rmtuw-1-Xvrkceddb Nrsmn-4-Bgvshuabf Gamma Globulins PEP Interpretation Triglycerides Urine Creatinine Urine Total Protein Digoxin Crossmatch 10/10/19 10/10/19 10/11/19 08:33 08:44 05:41 WBC 13.2 H RBC Hgb 11.3 L Hct 33.8 L RDW 15.3 H Plt Count 543 H Lymph % (Auto) [place] % (Auto) Lymph # [place] # Seg Neutrophils % Seg Neuts % (Manual) Lymphocytes % (Manual) Seg Neutrophils # Seg Neutrophils # Man Lymphocytes # (Manual) Monocytes # (Manual) POC ABG pH ABG pH POC ABG pCO2 POC ABG pO2 ABG pO2 ABG HCO3 ABG Base Excess ABG Hemoglobin Oxyhemoglobin Sodium Potassium Chloride Carbon Dioxide BUN Creatinine Glucose 113 H POC Glucose 117 H Calcium Phosphorus Magnesium Direct Bilirubin AST C-Reactive Protein Serum Total Protein Total Protein Albumin Prealbumin Mtnbf-5-Kyetqqdlf Nuioi-8-Vqpaclyfk Gamma Globulins PEP Interpretation Triglycerides Urine Creatinine Urine Total Protein Digoxin Crossmatch 10/11/19 10/11/19 10/11/19 05:41 06:23 06:23 WBC RBC Hgb Hct RDW Plt Count Lymph % (Auto) [place] % (Auto) Lymph # [place] # Seg Neutrophils % Seg Neuts % (Manual) Lymphocytes % (Manual) Seg Neutrophils # Seg Neutrophils # Man Lymphocytes # (Manual) Monocytes # (Manual) POC ABG pH ABG pH POC ABG pCO2 POC ABG pO2 ABG pO2 ABG HCO3 ABG Base Excess ABG Hemoglobin Oxyhemoglobin Sodium 134 L Potassium Chloride 96.3 L Carbon Dioxide BUN 37 H Creatinine Glucose 58 L POC Glucose Calcium Phosphorus 4.90 H Magnesium Direct Bilirubin AST C-Reactive Protein Serum Total Protein Total Protein Albumin Prealbumin Ambsg-3-Ijdcrsnbx Jsemc-2-Dwywvvebc Gamma Globulins PEP Interpretation Triglycerides Urine Creatinine 118.2 H 116.8 H Urine Total Protein 105 H 104 H Digoxin Crossmatch 10/11/19 10/12/19 10/12/19 09:00 06:09 06:09 WBC 13.8 H RBC 3.39 L Hgb 10.2 L Hct 30.9 L RDW 15.5 H Plt Count 459 H Lymph % (Auto) [place] % (Auto) Lymph # [place] # Seg Neutrophils % Seg Neuts % (Manual) Lymphocytes % (Manual) Seg Neutrophils # Seg Neutrophils # Man Lymphocytes # (Manual) Monocytes # (Manual) POC ABG pH ABG pH POC ABG pCO2 POC ABG pO2 ABG pO2 ABG HCO3 ABG Base Excess ABG Hemoglobin Oxyhemoglobin Sodium 131 L Potassium Chloride 96.2 L Carbon Dioxide 21 L BUN 43 H Creatinine Glucose 72 L POC Glucose Calcium Phosphorus Magnesium Direct Bilirubin AST C-Reactive Protein Serum Total Protein 5.2 L Total Protein Albumin 1.9 L Prealbumin Ndkwd-5-Jjmwesalg 0.9 H Btmpt-2-Qrykahpyy 1.0 H Gamma Globulins 0.7 L PEP Interpretation see below H Triglycerides Urine Creatinine Urine Total Protein Digoxin Crossmatch 10/12/19 10/12/19 10/12/19 08:20 09:30 09:30 WBC RBC Hgb Hct RDW Plt Count Lymph % (Auto) [place] % (Auto) Lymph # [place] # Seg Neutrophils % Seg Neuts % (Manual) Lymphocytes % (Manual) Seg Neutrophils # Seg Neutrophils # Man Lymphocytes # (Manual) Monocytes # (Manual) POC ABG pH ABG pH POC ABG pCO2 POC ABG pO2 63 L ABG pO2 ABG HCO3 ABG Base Excess ABG Hemoglobin Oxyhemoglobin Sodium Potassium Chloride Carbon Dioxide BUN Creatinine Glucose POC Glucose Calcium Phosphorus Magnesium 2.50 H Direct Bilirubin 0.3 H AST C-Reactive Protein Serum Total Protein Total Protein 5.1 L Albumin 2.2 L Prealbumin Fkbtx-6-Wrxahloos Oxivz-9-Thpizyjiu Gamma Globulins PEP Interpretation Triglycerides Urine Creatinine Urine Total Protein Digoxin Crossmatch 10/13/19 10/13/19 10/13/19 04:20 04:20 13:20 WBC 15.7 H RBC 3.64 L Hgb 10.9 L Hct 33.1 L RDW 15.8 H Plt Count 488 H Lymph % (Auto) [place] % (Auto) Lymph # [place] # Seg Neutrophils % Seg Neuts % (Manual) Lymphocytes % (Manual) Seg Neutrophils # Seg Neutrophils # Man Lymphocytes # (Manual) Monocytes # (Manual) POC ABG pH ABG pH POC ABG pCO2 POC ABG pO2 ABG pO2 ABG HCO3 ABG Base Excess ABG Hemoglobin Oxyhemoglobin Sodium Potassium Chloride Carbon Dioxide BUN 28 H Creatinine Glucose POC Glucose Calcium Phosphorus Magnesium Direct Bilirubin AST C-Reactive Protein Serum Total Protein Total Protein Albumin Prealbumin Yxmkr-5-Ojyslvdmk Ugdqy-0-Enmgevavm Gamma Globulins PEP Interpretation Triglycerides Urine Creatinine Urine Total Protein Digoxin Crossmatch See Detail 10/13/19 10/13/19 10/14/19 18:24 20:05 04:47 WBC 24.2 H RBC Hgb 10.9 L Hct 34.2 L RDW 17.0 H Plt Count 442 H Lymph % (Auto) [place] % (Auto) Lymph # [place] # Seg Neutrophils % Seg Neuts % (Manual) Lymphocytes % (Manual) Seg Neutrophils # Seg Neutrophils # Man Lymphocytes # (Manual) Monocytes # (Manual) POC ABG pH ABG pH 7.180 L* 7.278 L POC ABG pCO2 POC ABG pO2 ABG pO2 130.7 H ABG HCO3 ABG Base Excess -6.5 L -6.5 L ABG Hemoglobin 12.2 L 12.3 L Oxyhemoglobin 92.9 L Sodium Potassium Chloride Carbon Dioxide BUN Creatinine Glucose POC Glucose Calcium Phosphorus Magnesium Direct Bilirubin AST C-Reactive Protein Serum Total Protein Total Protein Albumin Prealbumin Bmfoc-1-Bkwwhnbxe Bgayq-2-Lfpqjdcwf Gamma Globulins PEP Interpretation Triglycerides Urine Creatinine Urine Total Protein Digoxin Crossmatch 10/14/19 10/14/19 10/14/19 04:47 05:40 10:14 WBC RBC Hgb Hct RDW Plt Count Lymph % (Auto) [place] % (Auto) Lymph # [place] # Seg Neutrophils % Seg Neuts % (Manual) Lymphocytes % (Manual) Seg Neutrophils # Seg Neutrophils # Man Lymphocytes # (Manual) Monocytes # (Manual) POC ABG pH ABG pH POC ABG pCO2 POC ABG pO2 ABG pO2 76.3 L ABG HCO3 19.1 L ABG Base Excess -5.8 L ABG Hemoglobin 10.9 L Oxyhemoglobin 93.4 L Sodium Potassium 5.1 H D Chloride 109.2 H Carbon Dioxide 17 L BUN 38 H Creatinine 1.8 H D Glucose 104 H POC Glucose Calcium 7.4 L Phosphorus 5.60 H Magnesium Direct Bilirubin AST C-Reactive Protein Serum Total Protein Total Protein Albumin Prealbumin Veoju-0-Suyfttadw Drfbe-0-Wxskwsroc Gamma Globulins PEP Interpretation Triglycerides Urine Creatinine Urine Total Protein Digoxin Crossmatch 10/14/19 10/15/19 10/15/19 23:46 04:32 04:32 WBC 15.5 H RBC 2.89 L Hgb 8.8 L Hct 27.3 L D RDW 16.6 H Plt Count Lymph % (Auto) [place] % (Auto) Lymph # [place] # Seg Neutrophils % Seg Neuts % (Manual) Lymphocytes % (Manual) Seg Neutrophils # Seg Neutrophils # Man Lymphocytes # (Manual) Monocytes # (Manual) POC ABG pH ABG pH POC ABG pCO2 POC ABG pO2 ABG pO2 ABG HCO3 ABG Base Excess ABG Hemoglobin Oxyhemoglobin Sodium 147 H Potassium Chloride 114.0 H Carbon Dioxide 19 L BUN 42 H Creatinine Glucose 112 H POC Glucose 113 H Calcium 7.3 L Phosphorus Magnesium Direct Bilirubin AST 72 H C-Reactive Protein 30.60 H Serum Total Protein Total Protein 4.0 L D Albumin 1.7 L Prealbumin 0.030 L Tpzjd-5-Yzhqogdav Duijl-2-Jzggcrnbr Gamma Globulins PEP Interpretation Triglycerides Urine Creatinine Urine Total Protein Digoxin Crossmatch 10/15/19 10/15/19 10/15/19 05:30 12:08 17:23 WBC RBC Hgb Hct RDW Plt Count Lymph % (Auto) [place] % (Auto) Lymph # [place] # Seg Neutrophils % Seg Neuts % (Manual) Lymphocytes % (Manual) Seg Neutrophils # Seg Neutrophils # Man Lymphocytes # (Manual) Monocytes # (Manual) POC ABG pH ABG pH 7.296 L POC ABG pCO2 POC ABG pO2 ABG pO2 114.7 H ABG HCO3 ABG Base Excess -3.7 L ABG Hemoglobin 8.9 L Oxyhemoglobin Sodium Potassium Chloride Carbon Dioxide BUN Creatinine Glucose POC Glucose 106 H 106 H Calcium Phosphorus Magnesium Direct Bilirubin AST C-Reactive Protein Serum Total Protein Total Protein Albumin Prealbumin Hpjim-2-Otqskqxlm Rffws-5-Akrhkuktp Gamma Globulins PEP Interpretation Triglycerides Urine Creatinine Urine Total Protein Digoxin Crossmatch 10/16/19 10/16/19 10/16/19 00:07 04:44 05:24 WBC RBC Hgb Hct RDW Plt Count Lymph % (Auto) [place] % (Auto) Lymph # [place] # Seg Neutrophils % Seg Neuts % (Manual) Lymphocytes % (Manual) Seg Neutrophils # Seg Neutrophils # Man Lymphocytes # (Manual) Monocytes # (Manual) POC ABG pH ABG pH POC ABG pCO2 POC ABG pO2 ABG pO2 ABG HCO3 ABG Base Excess ABG Hemoglobin Oxyhemoglobin Sodium 150 H Potassium Chloride 115.8 H Carbon Dioxide BUN 35 H Creatinine Glucose 129 H POC Glucose 119 H 129 H Calcium 7.3 L Phosphorus 1.80 L D Magnesium Direct Bilirubin AST C-Reactive Protein Serum Total Protein Total Protein Albumin Prealbumin Dachq-1-Ncmivcwoa Aorbz-6-Xfnyxjiek Gamma Globulins PEP Interpretation Triglycerides Urine Creatinine Urine Total Protein Digoxin Crossmatch 10/16/19 10/16/19 10/16/19 06:53 09:20 11:58 WBC 14.6 H RBC 2.70 L Hgb 8.1 L Hct 25.2 L RDW 16.7 H Plt Count Lymph % (Auto) [place] % (Auto) Lymph # [place] # Seg Neutrophils % Seg Neuts % (Manual) 79.0 H Lymphocytes % (Manual) 4.0 L Seg Neutrophils # Seg Neutrophils # Man 11.5 H Lymphocytes # (Manual) 0.6 L Monocytes # (Manual) POC ABG pH ABG pH POC ABG pCO2 47.0 H POC ABG pO2 ABG pO2 ABG HCO3 ABG Base Excess ABG Hemoglobin Oxyhemoglobin Sodium Potassium Chloride Carbon Dioxide BUN Creatinine Glucose POC Glucose Calcium Phosphorus Magnesium Direct Bilirubin AST C-Reactive Protein Serum Total Protein Total Protein Albumin Prealbumin Vsibd-0-Iohvvxuuy Oqtar-2-Wiajqkmij Gamma Globulins PEP Interpretation Triglycerides Urine Creatinine Urine Total Protein Digoxin Crossmatch See Detail 10/16/19 10/16/19 10/16/19 15:23 17:50 23:58 WBC RBC Hgb Hct RDW Plt Count Lymph % (Auto) [place] % (Auto) Lymph # [place] # Seg Neutrophils % Seg Neuts % (Manual) Lymphocytes % (Manual) Seg Neutrophils # Seg Neutrophils # Man Lymphocytes # (Manual) Monocytes # (Manual) POC ABG pH ABG pH POC ABG pCO2 POC ABG pO2 ABG pO2 ABG HCO3 ABG Base Excess ABG Hemoglobin Oxyhemoglobin Sodium Potassium Chloride Carbon Dioxide BUN Creatinine Glucose POC Glucose 221 H 201 H 179 H Calcium Phosphorus Magnesium Direct Bilirubin AST C-Reactive Protein Serum Total Protein Total Protein Albumin Prealbumin Nomxo-5-Hfoepapad Vqcdi-7-Nsqyjhydn Gamma Globulins PEP Interpretation Triglycerides Urine Creatinine Urine Total Protein Digoxin Crossmatch 10/17/19 10/17/19 10/17/19 04:08 04:08 05:41 WBC 22.3 H RBC 3.35 L Hgb 10.0 L Hct 31.2 L D RDW 16.1 H Plt Count Lymph % (Auto) [place] % (Auto) Lymph # [place] # Seg Neutrophils % Seg Neuts % (Manual) Lymphocytes % (Manual) Seg Neutrophils # Seg Neutrophils # Man Lymphocytes # (Manual) Monocytes # (Manual) POC ABG pH 7.310 L ABG pH POC ABG pCO2 52.8 H POC ABG pO2 70 L ABG pO2 ABG HCO3 ABG Base Excess ABG Hemoglobin Oxyhemoglobin Sodium 147 H Potassium Chloride 114.9 H Carbon Dioxide BUN 36 H Creatinine Glucose 165 H POC Glucose Calcium 6.9 L Phosphorus 2.20 L D Magnesium Direct Bilirubin AST C-Reactive Protein Serum Total Protein Total Protein Albumin Prealbumin Opeuq-1-Niotnqjhk Duozc-9-Ndikkcjuw Gamma Globulins PEP Interpretation Triglycerides Urine Creatinine Urine Total Protein Digoxin Crossmatch 10/17/19 10/17/19 10/17/19 05:42 11:33 18:17 WBC RBC Hgb Hct RDW Plt Count Lymph % (Auto) [place] % (Auto) Lymph # [place] # Seg Neutrophils % Seg Neuts % (Manual) Lymphocytes % (Manual) Seg Neutrophils # Seg Neutrophils # Man Lymphocytes # (Manual) Monocytes # (Manual) POC ABG pH ABG pH POC ABG pCO2 POC ABG pO2 ABG pO2 ABG HCO3 ABG Base Excess ABG Hemoglobin Oxyhemoglobin Sodium Potassium Chloride Carbon Dioxide BUN Creatinine Glucose POC Glucose 149 H 154 H 163 H Calcium Phosphorus Magnesium Direct Bilirubin AST C-Reactive Protein Serum Total Protein Total Protein Albumin Prealbumin Armol-3-Pnjpckpfq Yjmew-6-Ylfkknytj Gamma Globulins PEP Interpretation Triglycerides Urine Creatinine Urine Total Protein Digoxin Crossmatch 10/17/19 10/18/19 10/18/19 23:34 03:29 04:50 WBC RBC Hgb Hct RDW Plt Count Lymph % (Auto) [place] % (Auto) Lymph # [place] # Seg Neutrophils % Seg Neuts % (Manual) Lymphocytes % (Manual) Seg Neutrophils # Seg Neutrophils # Man Lymphocytes # (Manual) Monocytes # (Manual) POC ABG pH ABG pH POC ABG pCO2 POC ABG pO2 ABG pO2 78.8 L ABG HCO3 ABG Base Excess ABG Hemoglobin 8.8 L Oxyhemoglobin Sodium Potassium Chloride 111.8 H Carbon Dioxide BUN 27 H Creatinine 0.6 L Glucose 140 H POC Glucose 135 H Calcium 7.1 L Phosphorus 1.80 L Magnesium Direct Bilirubin AST C-Reactive Protein Serum Total Protein Total Protein Albumin Prealbumin Phvsh-6-Jjajzlvke Ufhqr-2-Fuhhkdwwg Gamma Globulins PEP Interpretation Triglycerides Urine Creatinine Urine Total Protein Digoxin Crossmatch 10/18/19 10/18/19 10/18/19 05:45 11:19 18:26 WBC RBC Hgb Hct RDW Plt Count Lymph % (Auto) [place] % (Auto) Lymph # [place] # Seg Neutrophils % Seg Neuts % (Manual) Lymphocytes % (Manual) Seg Neutrophils # Seg Neutrophils # Man Lymphocytes # (Manual) Monocytes # (Manual) POC ABG pH ABG pH POC ABG pCO2 POC ABG pO2 ABG pO2 ABG HCO3 ABG Base Excess ABG Hemoglobin Oxyhemoglobin Sodium Potassium Chloride Carbon Dioxide BUN Creatinine Glucose POC Glucose 145 H 152 H 125 H Calcium Phosphorus Magnesium Direct Bilirubin AST C-Reactive Protein Serum Total Protein Total Protein Albumin Prealbumin Xqigs-4-Kghjozeuw Rngps-6-Nbhcxjfxv Gamma Globulins PEP Interpretation Triglycerides Urine Creatinine Urine Total Protein Digoxin Crossmatch 10/18/19 10/19/19 10/19/19 23:27 04:21 04:21 WBC RBC Hgb Hct RDW Plt Count Lymph % (Auto) [place] % (Auto) Lymph # [place] # Seg Neutrophils % Seg Neuts % (Manual) Lymphocytes % (Manual) Seg Neutrophils # Seg Neutrophils # Man Lymphocytes # (Manual) Monocytes # (Manual) POC ABG pH ABG pH POC ABG pCO2 POC ABG pO2 ABG pO2 ABG HCO3 ABG Base Excess ABG Hemoglobin Oxyhemoglobin Sodium Potassium Chloride 108.4 H Carbon Dioxide BUN 22 H Creatinine 0.5 L Glucose 123 H POC Glucose 127 H Calcium 7.4 L Phosphorus 1.80 L Magnesium Direct Bilirubin AST C-Reactive Protein Serum Total Protein Total Protein Albumin Prealbumin Aucze-4-Tekdgxpbg Svywm-6-Cjzfuucfc Gamma Globulins PEP Interpretation Triglycerides Urine Creatinine Urine Total Protein Digoxin 0.7 L Crossmatch 10/19/19 10/19/19 10/19/19 05:00 05:35 11:26 WBC RBC Hgb Hct RDW Plt Count Lymph % (Auto) [place] % (Auto) Lymph # [place] # Seg Neutrophils % Seg Neuts % (Manual) Lymphocytes % (Manual) Seg Neutrophils # Seg Neutrophils # Man Lymphocytes # (Manual) Monocytes # (Manual) POC ABG pH ABG pH 7.456 H POC ABG pCO2 POC ABG pO2 ABG pO2 78.8 L ABG HCO3 ABG Base Excess ABG Hemoglobin 5.6 L Oxyhemoglobin Sodium Potassium Chloride Carbon Dioxide BUN Creatinine Glucose POC Glucose 124 H 111 H Calcium Phosphorus Magnesium Direct Bilirubin AST C-Reactive Protein Serum Total Protein Total Protein Albumin Prealbumin Nmepe-5-Edptllkes Amopv-8-Ditgjanhu Gamma Globulins PEP Interpretation Triglycerides Urine Creatinine Urine Total Protein Digoxin Crossmatch 10/19/19 10/20/19 10/20/19 23:23 04:50 05:17 WBC RBC Hgb Hct RDW Plt Count Lymph % (Auto) [place] % (Auto) Lymph # [place] # Seg Neutrophils % Seg Neuts % (Manual) Lymphocytes % (Manual) Seg Neutrophils # Seg Neutrophils # Man Lymphocytes # (Manual) Monocytes # (Manual) POC ABG pH ABG pH POC ABG pCO2 POC ABG pO2 ABG pO2 ABG HCO3 ABG Base Excess ABG Hemoglobin Oxyhemoglobin Sodium Potassium Chloride 108.1 H Carbon Dioxide BUN Creatinine 0.4 L Glucose 134 H POC Glucose 129 H 123 H Calcium 7.1 L Phosphorus Magnesium Direct Bilirubin AST C-Reactive Protein Serum Total Protein Total Protein Albumin Prealbumin Ryxfb-8-Mgkbenkla Polfn-1-Vtrujpdcu Gamma Globulins PEP Interpretation Triglycerides Urine Creatinine Urine Total Protein Digoxin Crossmatch 10/20/19 10/20/19 10/21/19 11:40 19:06 05:08 WBC RBC Hgb Hct RDW Plt Count Lymph % (Auto) [place] % (Auto) Lymph # [place] # Seg Neutrophils % Seg Neuts % (Manual) Lymphocytes % (Manual) Seg Neutrophils # Seg Neutrophils # Man Lymphocytes # (Manual) Monocytes # (Manual) POC ABG pH ABG pH POC ABG pCO2 POC ABG pO2 ABG pO2 ABG HCO3 ABG Base Excess ABG Hemoglobin Oxyhemoglobin Sodium Potassium Chloride Carbon Dioxide BUN Creatinine Glucose POC Glucose 139 H 117 H 131 H Calcium Phosphorus Magnesium Direct Bilirubin AST C-Reactive Protein Serum Total Protein Total Protein Albumin Prealbumin Tnbmz-4-Mgajzkart Jadze-1-Qfzbilhwf Gamma Globulins PEP Interpretation Triglycerides Urine Creatinine Urine Total Protein Digoxin Crossmatch 10/21/19 10/21/19 10/21/19 05:30 12:04 17:31 WBC RBC Hgb Hct RDW Plt Count Lymph % (Auto) [place] % (Auto) Lymph # [place] # Seg Neutrophils % Seg Neuts % (Manual) Lymphocytes % (Manual) Seg Neutrophils # Seg Neutrophils # Man Lymphocytes # (Manual) Monocytes # (Manual) POC ABG pH ABG pH POC ABG pCO2 POC ABG pO2 ABG pO2 ABG HCO3 ABG Base Excess ABG Hemoglobin Oxyhemoglobin Sodium Potassium Chloride 107.8 H Carbon Dioxide BUN Creatinine 0.5 L Glucose 119 H POC Glucose 119 H 110 H Calcium 7.6 L Phosphorus Magnesium Direct Bilirubin AST C-Reactive Protein Serum Total Protein Total Protein Albumin Prealbumin Yvnyo-2-Nzrnyqmmn Qftay-3-Vwsddkpwa Gamma Globulins PEP Interpretation Triglycerides Urine Creatinine Urine Total Protein Digoxin Crossmatch 10/22/19 10/22/19 10/22/19 05:14 05:37 12:07 WBC RBC Hgb Hct RDW Plt Count Lymph % (Auto) [place] % (Auto) Lymph # [place] # Seg Neutrophils % Seg Neuts % (Manual) Lymphocytes % (Manual) Seg Neutrophils # Seg Neutrophils # Man Lymphocytes # (Manual) Monocytes # (Manual) POC ABG pH ABG pH POC ABG pCO2 POC ABG pO2 ABG pO2 ABG HCO3 ABG Base Excess ABG Hemoglobin Oxyhemoglobin Sodium Potassium Chloride Carbon Dioxide BUN Creatinine 0.5 L Glucose 116 H POC Glucose 110 H 126 H Calcium 7.7 L Phosphorus Magnesium Direct Bilirubin AST C-Reactive Protein Serum Total Protein Total Protein Albumin Prealbumin Uilgn-8-Qujlnzlgr Mbnjw-4-Svbxhxnes Gamma Globulins PEP Interpretation Triglycerides Urine Creatinine Urine Total Protein Digoxin Crossmatch 10/22/19 10/22/19 10/23/19 18:36 23:19 04:39 WBC RBC Hgb Hct RDW Plt Count Lymph % (Auto) [place] % (Auto) Lymph # [place] # Seg Neutrophils % Seg Neuts % (Manual) Lymphocytes % (Manual) Seg Neutrophils # Seg Neutrophils # Man Lymphocytes # (Manual) Monocytes # (Manual) POC ABG pH ABG pH POC ABG pCO2 POC ABG pO2 ABG pO2 ABG HCO3 ABG Base Excess ABG Hemoglobin Oxyhemoglobin Sodium Potassium Chloride Carbon Dioxide BUN Creatinine Glucose POC Glucose 120 H 127 H 112 H Calcium Phosphorus Magnesium Direct Bilirubin AST C-Reactive Protein Serum Total Protein Total Protein Albumin Prealbumin Yzxed-8-Zcqmxowzx Ktmib-4-Cytgbiigg Gamma Globulins PEP Interpretation Triglycerides Urine Creatinine Urine Total Protein Digoxin Crossmatch 10/23/19 10/23/19 10/23/19 04:47 05:15 10:44 WBC 18.3 H RBC 2.33 L Hgb 7.0 L Hct 21.5 L RDW 16.2 H Plt Count Lymph % (Auto) 4.9 L [place] % (Auto) 8.1 H Lymph # 0.9 L [place] # 1.5 H Seg Neutrophils % 86.7 H Seg Neuts % (Manual) Lymphocytes % (Manual) Seg Neutrophils # 15.9 H Seg Neutrophils # Man Lymphocytes # (Manual) Monocytes # (Manual) POC ABG pH ABG pH POC ABG pCO2 POC ABG pO2 ABG pO2 68.9 L ABG HCO3 28.7 H ABG Base Excess 3.4 H ABG Hemoglobin 6.6 L Oxyhemoglobin 94.1 L Sodium Potassium Chloride Carbon Dioxide BUN Creatinine 0.5 L Glucose 165 H POC Glucose Calcium 7.4 L Phosphorus Magnesium Direct Bilirubin AST C-Reactive Protein Serum Total Protein Total Protein Albumin Prealbumin Yrgpf-4-Vhhqkuzvu Dgwzr-9-Yucpmntri Gamma Globulins PEP Interpretation Triglycerides Urine Creatinine Urine Total Protein Digoxin Crossmatch 10/23/19 10/23/19 10/23/19 10:44 11:46 11:50 WBC RBC Hgb Hct RDW Plt Count Lymph % (Auto) [place] % (Auto) Lymph # [place] # Seg Neutrophils % Seg Neuts % (Manual) Lymphocytes % (Manual) Seg Neutrophils # Seg Neutrophils # Man Lymphocytes # (Manual) Monocytes # (Manual) POC ABG pH ABG pH POC ABG pCO2 POC ABG pO2 ABG pO2 ABG HCO3 ABG Base Excess ABG Hemoglobin Oxyhemoglobin Sodium Potassium Chloride Carbon Dioxide BUN Creatinine Glucose POC Glucose 138 H Calcium Phosphorus Magnesium Direct Bilirubin 0.7 H AST C-Reactive Protein Serum Total Protein Total Protein 4.5 L Albumin 1.2 L Prealbumin Qoxeo-3-Rwallifrs Zuvmy-6-Grppeknym Gamma Globulins PEP Interpretation Triglycerides Urine Creatinine Urine Total Protein Digoxin Crossmatch See Detail 10/23/19 10/24/19 10/24/19 17:53 00:07 05:05 WBC RBC Hgb Hct RDW Plt Count Lymph % (Auto) [place] % (Auto) Lymph # [place] # Seg Neutrophils % Seg Neuts % (Manual) Lymphocytes % (Manual) Seg Neutrophils # Seg Neutrophils # Man Lymphocytes # (Manual) Monocytes # (Manual) POC ABG pH ABG pH POC ABG pCO2 POC ABG pO2 ABG pO2 ABG HCO3 ABG Base Excess ABG Hemoglobin Oxyhemoglobin Sodium Potassium 3.5 L Chloride Carbon Dioxide BUN Creatinine 0.5 L Glucose 116 H POC Glucose 137 H 110 H Calcium 8.0 L Phosphorus Magnesium Direct Bilirubin AST C-Reactive Protein Serum Total Protein Total Protein Albumin Prealbumin Esrxa-4-Olhbyuilr Flliv-8-Oqgxvmutk Gamma Globulins PEP Interpretation Triglycerides Urine Creatinine Urine Total Protein Digoxin Crossmatch 10/24/19 10/24/19 10/24/19 05:05 11:56 13:00 WBC 13.0 H RBC 2.73 L Hgb 8.0 L Hct 24.2 L RDW 17.9 H Plt Count Lymph % (Auto) 7.0 L [place] % (Auto) 9.5 H Lymph # 0.9 L [place] # 1.2 H Seg Neutrophils % 82.7 H Seg Neuts % (Manual) Lymphocytes % (Manual) Seg Neutrophils # 10.7 H Seg Neutrophils # Man Lymphocytes # (Manual) Monocytes # (Manual) POC ABG pH ABG pH POC ABG pCO2 POC ABG pO2 ABG pO2 ABG HCO3 ABG Base Excess ABG Hemoglobin Oxyhemoglobin Sodium Potassium Chloride Carbon Dioxide BUN Creatinine Glucose POC Glucose 159 H Calcium Phosphorus Magnesium Direct Bilirubin AST C-Reactive Protein Serum Total Protein Total Protein Albumin Prealbumin Pdisz-5-Jbhibsjpf Hquqj-0-Zdqxpccsn Gamma Globulins PEP Interpretation Triglycerides 216 H Urine Creatinine Urine Total Protein Digoxin Crossmatch
[2019-10-24] MEDS ORDERED: TOTAL PARENTERAL NUTRITION 2,400 ML IV SCH (20:00)
[2019-10-24] MEDS ORDERED: FAT EMULSIONS 20% 250 ML IV SCH (20:00)
[2019-10-24] MEDS: ENOXAPARIN 40 MG/0.4 ML INJ SUB-Q SCH (21:26)
[2019-10-25] MEDS: IPRATROPIUM/ALBUTEROL SULFATE 3 ML AMPUL.NEB IH SCH ×4 (02:03→19:26)
[2019-10-25] MEDS: fentaNYL DRIP Premix 2,000 MCG/100 ML BAG IV SCH ×3 (02:13→10:33)
[2019-10-25] MEDS: PROPOFOL 1,000 MG/100 ML BOTTLE IV SCH ×2 (04:31→10:04)
[2019-10-25 05:29] LABS: Hematocrit 23.9 % (35.5-45.6); Hemoglobin 8.1 gm/dl (11.8-15.2); Mean Corpuscular HGB Conc 34 % (32-34); Mean Corpuscular Volume 89 fl (84-94); Platelet Count 261 K/mm3 (140-440); Red Blood Count 2.69 M/mm3 (3.65-5.03); Red Cell Distribution Width 17.3 % (13.2-15.2)
[2019-10-25 05:57] LABS: Alanine Aminotransferase 10 units/L (7-56); Albumin 2.5 g/dL (3.9-5); BUN/Creatinine Ratio 36; Blood Urea Nitrogen 18 mg/dL (9-20); Calcium 8.5 mg/dL (8.4-10.2); Hemolysis Index 1
--- NOTE | 2019-10-25 06:19 | Progress Note ---
Assessment and Plan Dehiscence of closure of fascia * Went to OR for ex lap with closure of abdominal wall and wound vac placement (10/05) * Continued to decline with possible Air vs fluid, 10/10/19 IR went in and placed two drains, Noted to have possible fecal material * Returned to the OR 10/13/19 due to concern for intra-abdominal infection and was found to have with heavy contamination of abdomen patent had disruption of bowel anastomosis, abdominal washout, abthera placement and colon stapled transection and left bowel enterotomy from anastomosis completely open * Returned to OR on 10/16/19 for abdominal washout, Partial Omentectomy, Partial Colectomy, Colostomy Creation and AbThera Placement * Abdominal washout and closure - 10/22 - POD#2 * cont wound care Severe sepsis secondary to bowel leak at anastomosis site/PNA -cont IV zosyn and fluconazole -surgical culture positive for enterococcus duras -blood cultures neg Acute Respiratory failure with hypoxia -on MV support -failed weaning trial on 10/19/19 -[employer] following Left lower lobe pneumonia -Continue IV antibiotic -CTA chest showed left lower lobe consolidation with pleural effusion GUILLERMO on CRF -probably ATN due to sepsis -Improving, will monitor -SPEP and UPEP pending -No hydronephrosis on CT -[place] in place, monitor I/O's Severe Metabolic acidosis -Improved Acute Toxic Metabolic Encephalopathy/Delirium Tremens -Started on CIWA protocol due to hx of ETOH abuse, 6packs a day -Head CT scan negative for acute findings Hyperkalemia -Resolved Hyponatremia/hypernatremia -Improved -IVF d/francoise Acute blood loss anemia -H/H stable -Continue to monitor H&H and transfuse for hb<7 SVT, Atrial fib/flutter with RVR -treated with adenosine x1 -off amiodarone and cardizem drip. On oral amiodarone and IV Lopressor. -HR currently controlled -Cardiology following Hypotension -Off esmolol drip -s/p IV fluid boluses, BP stable Hypophosphatemia -will monitor level Hx of Hypertension -Stable Hyperlipidemia -stable Atypical chest pain -probably secondary to pneumonitis -troponin levels neg Hx of AL/CAD -s/p PCI of the circumflex and second vessel POBA of the distal LAD occlusion. Left ventricle fraction of 45-50%. Morbid obesity with BMI of 45.4 -Lifestyle modification recommended COPD -Stable -cont neb tx Moderate Protein calorie malnutrition secondary to surgery -On TPN -Nutrition following Tobacco abuse -Cessation recommended Morbid obesity with BMI of 45.4 -Lifestyle modification recommended DVT and GI ppx: Lovenox/PPI Disp: Very poor prognosis. d/c per clinical course Critical time spent: 34 mins Subjective Date of service: 10/24/19 Principal diagnosis: acute renal failure Interval history: 54 yo male with hx of CAD, AL, emphysema, COPD who presented with prolonged complicated course as a result of a bowel perforation. On admission, it was reported that a portion of his intestines protruded through his wound after severe cough. He has had multiple surgeries since admission. Pt stable. s/p ex lap with closure of abdominal wall and wound vac placement (10/05) - POD#17; s/p Re-exploration, washout, transection of colon, Abthera placement - 10/13 - POD#9; s/p abd washout, partial omentectomy, partial colectomy with colostomy - 10/16 POD#7. s/p abd washout, feeding tube placement, AbThera placement - 10/19 - POD#4; Abdominal washout and closure - 10/22 - POD#2 Objective - Constitutional Vitals: Vital Signs - 12hr 10/24/19 10/24/19 10/24/19 19:00 19:54 19:57 Temperature 98.9 F 98.9 F Pulse Rate 69 Pulse Rate [ Anterior Bilateral Throughout] Pulse Rate [ 76 From Monitor] Respiratory 19 16 Rate Respiratory Rate [Anterior Bilateral Throughout] Blood Pressure 127/54 O2 Sat by Pulse 98 99 Oximetry 10/24/19 10/24/19 10/24/19 20:00 20:45 20:53 Temperature Pulse Rate 77 73 Pulse Rate [ 74 Anterior Bilateral Throughout] Pulse Rate [ From Monitor] Respiratory 19 Rate Respiratory 20 Rate [Anterior Bilateral Throughout] Blood Pressure 125/50 123/50 O2 Sat by Pulse 98 99 Oximetry 10/24/19 10/24/19 10/24/19 21:00 21:25 22:00 Temperature Pulse Rate 72 71 76 Pulse Rate [ Anterior Bilateral Throughout] Pulse Rate [ From Monitor] Respiratory 19 20 Rate Respiratory Rate [Anterior Bilateral Throughout] Blood Pressure 131/52 131/52 128/44 O2 Sat by Pulse 98 100 Oximetry 12/11/19 12/12/19 12/12/19 23:00 00:00 00:04 Temperature 99.2 F Pulse Rate 84 80 80 Pulse Rate [ Anterior Bilateral Throughout] Pulse Rate [ From Monitor] Respiratory 20 20 18 Rate Respiratory Rate [Anterior Bilateral Throughout] Blood Pressure 133/38 135/58 139/60 O2 Sat by Pulse 98 99 98 Oximetry 10/25/19 10/25/19 10/25/19 00:22 01:00 02:00 Temperature Pulse Rate 80 77 70 Pulse Rate [ 72 Anterior Bilateral Throughout] Pulse Rate [ From Monitor] Respiratory 20 20 Rate Respiratory 20 Rate [Anterior Bilateral Throughout] Blood Pressure 135/58 143/54 125/54 O2 Sat by Pulse 98 98 96 Oximetry 10/25/19 10/25/19 10/25/19 03:00 04:00 04:24 Temperature 99.6 F Pulse Rate 75 90 83 Pulse Rate [ Anterior Bilateral Throughout] Pulse Rate [ 83 From Monitor] Respiratory 20 24 Rate Respiratory Rate [Anterior Bilateral Throughout] Blood Pressure 116/48 116/48 120/81 O2 Sat by Pulse 98 96 Oximetry 10/25/19 10/25/19 05:00 06:00 Temperature Pulse Rate 74 74 Pulse Rate [ Anterior Bilateral Throughout] Pulse Rate [ From Monitor] Respiratory 20 20 Rate Respiratory Rate [Anterior Bilateral Throughout] Blood Pressure 116/47 116/49 O2 Sat by Pulse 98 98 Oximetry General appearance: Present: mild distress, well-nourished - EENT Eyes: PERRL, EOM intact ENT: hearing intact, clear oral mucosa Ears: bilateral: normal - Neck Neck: supple, normal ROM - Respiratory Respiratory effort: normal Respiratory: bilateral: CTA - Breasts Breasts: normal - Cardiovascular Heart rate: 88 Rhythm: regular Heart Sounds: Present: S1 & S2. Absent: gallop, rub Extremities: no ischemia, pulses intact, No edema, normal color, Full ROM - Gastrointestinal General gastrointestinal: Present: tender, distended, normal bowel sounds, other (J tube,Colostomy in place) Localized gastrointestinal: tender: diffuse Rectal Exam: deferred - Genitourinary Male genitourinary: normal - Integumentary Integumentary: clear, warm, dry - Musculoskeletal Musculoskeletal: generalized weakness - Neurologic Neurologic: moves all extremities - Psychiatric Psychiatric: memory intact, appropriate mood/affect, intact judgment & insight - Allied health notes Allied health notes reviewed: nursing, case management - Labs CBC & Chem 7: 10/25/19 04:19 10/25/19 04:19 Labs: Abnormal lab results 10/24/19 10/24/19 10/24/19 Range/Units 05:05 11:56 13:00 WBC 13.0 H (4.5-11.0) K/mm3 RBC 2.73 L (3.65-5.03) M/mm3 Hgb 8.0 L (11.8-15.2) gm/dl Hct 24.2 L (35.5-45.6) % RDW 17.9 H (13.2-15.2) % Lymph % (Auto) 7.0 L (13.4-35.0) % [place] % (Auto) 9.5 H (0.0-7.3) % Lymph # 0.9 L (1.2-5.4) K/mm3 [place] # 1.2 H (0.0-0.8) K/mm3 Seg Neutrophils % 82.7 H (40.0-70.0) % Seg Neutrophils # 10.7 H (1.8-7.7) K/mm3 Sodium (137-145) mmol/L Carbon Dioxide (22-30) mmol/L Creatinine (0.8-1.5) mg/dL Glucose (75-100) mg/dL POC Glucose 159 H (70-105) Total Protein (6.3-8.2) g/dL Albumin (3.9-5) g/dL Triglycerides 216 H (2-149) mg/dL 10/24/19 10/24/19 10/25/19 Range/Units 17:42 23:45 04:19 WBC (4.5-11.0) K/mm3 RBC (3.65-5.03) M/mm3 Hgb (11.8-15.2) gm/dl Hct (35.5-45.6) % RDW (13.2-15.2) % Lymph % (Auto) (13.4-35.0) % [place] % (Auto) (0.0-7.3) % Lymph # (1.2-5.4) K/mm3 [place] # (0.0-0.8) K/mm3 Seg Neutrophils % (40.0-70.0) % Seg Neutrophils # (1.8-7.7) K/mm3 Sodium 147 H (137-145) mmol/L Carbon Dioxide 33 H (22-30) mmol/L Creatinine 0.5 L (0.8-1.5) mg/dL Glucose 111 H (75-100) mg/dL POC Glucose 120 H 116 H (70-105) Total Protein 5.7 L D (6.3-8.2) g/dL Albumin 2.5 L (3.9-5) g/dL Triglycerides 230 H (2-149) mg/dL 10/25/19 10/25/19 Range/Units 04:19 05:31 WBC (4.5-11.0) K/mm3 RBC 2.69 L (3.65-5.03) M/mm3 Hgb 8.1 L (11.8-15.2) gm/dl Hct 23.9 L (35.5-45.6) % RDW 17.3 H (13.2-15.2) % Lymph % (Auto) (13.4-35.0) % [place] % (Auto) (0.0-7.3) % Lymph # (1.2-5.4) K/mm3 [place] # (0.0-0.8) K/mm3 Seg Neutrophils % (40.0-70.0) % Seg Neutrophils # (1.8-7.7) K/mm3 Sodium (137-145) mmol/L Carbon Dioxide (22-30) mmol/L Creatinine (0.8-1.5) mg/dL Glucose (75-100) mg/dL POC Glucose 126 H (70-105) Total Protein (6.3-8.2) g/dL Albumin (3.9-5) g/dL Triglycerides (2-149) mg/dL
[2019-10-25] MEDS: INSULIN LISPRO 100 UNIT/ML SUB-Q SCH ×3 (06:34→18:00)
[2019-10-25] MEDS: METOPROLOL TARTRATE 5 MG/5 ML INJ IV SCH (06:37)
--- NOTE | 2019-10-25 08:41 | Progress Note ---
Assessment and Plan - Patient Problems (1) Dehiscence of closure of fascia, superficial or muscular Current Visit: No Status: Acute Qualifiers: Encounter type: initial encounter Qualified Code(s): T81.32XA - Disruption of internal operation (surgical) wound, not elsewhere classified, initial encounter Plan to address problem: Pt stable. s/p ex lap with closure of abdominal wall and wound vac placement (10/05) - POD#18; s/p Re-exploration, washout, transection of colon, Abthera placement - 10/13 - POD#10; s/p abd washout, partial omentectomy, partial colectomy with colostomy - 10/16 POD#8. s/p abd washout, feeding tube placement, AbThera placement - 10/19 - POD#5; Abdominal washout and closure - 10/22 - POD#3 Overall, patient looks better today. BP better. Pt is less swollen. WBC is normal. Drains have minimal output and no odor (colon leak would have odor of stool). Rec: 1) Neuro - sedated. Family states that he has not had a drink in 3 weeks. Perhaps withdrawal may not have been involved. Ativan currently held. Staff reports he is following commands. Currently on propofol 2) CV - BP improved. Hgb stable. 3) Resp - Vent support. 4) GI - Ostomy looks good. No function yet. Sump drains and wound vac not consistent with previous fluid appearance when he has leaked. Sump drains are working properly. No obvious leak is seen today. The fluid that we are currently draining is very thin, minimal in amount, and it does not have an odor. We will continue to monitor closely. Ok to continue trickle feeds via the Jejunal port. Would not advance beyond trickle feeds (10cc/hr) at this time. Gastric output is starting to lighten up. We may have resumption of normal function soon and then can advance tube feeds to goal. 5) - BUN/Cr look good 6) ID - Abx per ID. Enterococcus on cultures. No Fevers. 7) Nutrition - TPN 8) DVT prophylaxis - SCDs. Lovenox 9) Family -spoke with this AM. Please call with questions. Subjective Date of service: 10/25/19 Patient Reports: Positive: other (no events o/n.) Objective Vital Signs - 12hr 10/24/19 10/24/19 10/24/19 20:45 20:53 21:00 Temperature Pulse Rate 73 72 Pulse Rate [ 74 Anterior Bilateral Throughout] Pulse Rate [ From Monitor] Respiratory 19 Rate Respiratory 20 Rate [Anterior Bilateral Throughout] Blood Pressure 123/50 131/52 O2 Sat by Pulse 99 98 Oximetry 10/24/19 10/24/19 10/24/19 21:25 22:00 23:00 Temperature Pulse Rate 71 76 84 Pulse Rate [ Anterior Bilateral Throughout] Pulse Rate [ From Monitor] Respiratory 20 20 Rate Respiratory Rate [Anterior Bilateral Throughout] Blood Pressure 131/52 128/44 133/38 O2 Sat by Pulse 100 98 Oximetry 10/25/19 10/25/19 10/25/19 00:00 00:04 00:22 Temperature 99.2 F Pulse Rate 80 80 80 Pulse Rate [ Anterior Bilateral Throughout] Pulse Rate [ From Monitor] Respiratory 20 18 Rate Respiratory Rate [Anterior Bilateral Throughout] Blood Pressure 135/58 139/60 135/58 O2 Sat by Pulse 99 98 98 Oximetry 10/25/19 10/25/19 10/25/19 01:00 02:00 03:00 Temperature Pulse Rate 77 70 75 Pulse Rate [ 72 Anterior Bilateral Throughout] Pulse Rate [ From Monitor] Respiratory 20 20 20 Rate Respiratory 20 Rate [Anterior Bilateral Throughout] Blood Pressure 143/54 125/54 116/48 O2 Sat by Pulse 98 96 98 Oximetry 10/25/19 10/25/19 10/25/19 04:00 04:24 05:00 Temperature 99.6 F Pulse Rate 76 83 74 Pulse Rate [ Anterior Bilateral Throughout] Pulse Rate [ 83 From Monitor] Respiratory 24 20 Rate Respiratory Rate [Anterior Bilateral Throughout] Blood Pressure 116/48 120/81 116/47 O2 Sat by Pulse 96 98 Oximetry 10/25/19 10/25/19 10/25/19 06:00 06:37 07:00 Temperature Pulse Rate 74 74 79 Pulse Rate [ Anterior Bilateral Throughout] Pulse Rate [ From Monitor] Respiratory 20 21 Rate Respiratory Rate [Anterior Bilateral Throughout] Blood Pressure 116/49 112/43 123/51 O2 Sat by Pulse 98 99 Oximetry 10/25/19 08:00 Temperature Pulse Rate 90 Pulse Rate [ Anterior Bilateral Throughout] Pulse Rate [ From Monitor] Respiratory 20 Rate Respiratory Rate [Anterior Bilateral Throughout] Blood Pressure 127/59 O2 Sat by Pulse 95 Oximetry - General physical appearance no distress, no pain, obese, other (opens his eyes to stimulation) - Respiratory normal expansion, normal respiratory effort - Abdomen soft, distended (less so), not rigid, other (wound vac with serosang drainage. Sump drains with thin, [place] colored fluid - no odor.) - Labs 10/25/19 04:19 10/25/19 04:19 Diabetes panel 10/24/19 10/25/19 Range/Units 13:00 04:19 Sodium 147 H (137-145) mmol/L Potassium 3.9 (3.6-5.0) mmol/L Chloride 102.1 (98-107) mmol/L Carbon Dioxide 33 H (22-30) mmol/L BUN 18 (9-20) mg/dL Creatinine 0.5 L (0.8-1.5) mg/dL Glucose 111 H (75-100) mg/dL Calcium 8.5 (8.4-10.2) mg/dL AST 16 (5-40) units/L ALT 10 (7-56) units/L Alkaline Phosphatase 100 (35-129) units/L Total Protein 5.7 L D (6.3-8.2) g/dL Albumin 2.5 L (3.9-5) g/dL Triglycerides 216 H 230 H (2-149) mg/dL Calcium panel 10/25/19 Range/Units 04:19 Calcium 8.5 (8.4-10.2) mg/dL Phosphorus 3.50 (2.5-4.5) mg/dL Albumin 2.5 L (3.9-5) g/dL Pituitary panel 10/25/19 Range/Units 04:19 Sodium 147 H (137-145) mmol/L Potassium 3.9 (3.6-5.0) mmol/L Chloride 102.1 (98-107) mmol/L Carbon Dioxide 33 H (22-30) mmol/L BUN 18 (9-20) mg/dL Creatinine 0.5 L (0.8-1.5) mg/dL Glucose 111 H (75-100) mg/dL Calcium 8.5 (8.4-10.2) mg/dL Adrenal panel 10/25/19 Range/Units 04:19 Sodium 147 H (137-145) mmol/L Potassium 3.9 (3.6-5.0) mmol/L Chloride 102.1 (98-107) mmol/L Carbon Dioxide 33 H (22-30) mmol/L BUN 18 (9-20) mg/dL Creatinine 0.5 L (0.8-1.5) mg/dL Glucose 111 H (75-100) mg/dL Calcium 8.5 (8.4-10.2) mg/dL Total Bilirubin 1.20 (0.1-1.2) mg/dL AST 16 (5-40) units/L ALT 10 (7-56) units/L Alkaline Phosphatase 100 (35-129) units/L Total Protein 5.7 L D (6.3-8.2) g/dL Albumin 2.5 L (3.9-5) g/dL
[2019-10-25] MEDS: ARFORMOTEROL 15 MCG/2 ML NEBU IH SCH ×2 (08:45→19:27)
[2019-10-25] MEDS: BUDESONIDE 0.5 MG/2 ML NEBU IH SCH ×2 (08:45→19:26)
--- NOTE | 2019-10-25 09:58 | Progress Note ---
Assessment and Plan Cultures 10/10/2019 surgical culture: No growth at 72 hours 10/13/2019 tracheal aspirate culture: No growth 10/13/2019 peritoneal fluid: Enterococcus species (S to Penicillin, Vancomycin) 10/15/2019 blood culture: no growth Assessment: 54 yo M PMhx CAD, COPD, recent complicated course of bowel perforation after a colonoscopy admitted with surgical site dehiscence of the fascia. Now with: 1. Acute sepsis - present with leukocytosis and tachycardia. Most likely secondary to fluid collection/abscess in the abdomen and anastomotic leak. 2. Intra-abdominal infection from anastomotic leak - s/p ex lap with closure of abdominal wall and wound vac placement (10/05/2019); s/p Re-exploration, washout , transection of colon, Abthera placement - 10/13/2019. s/p re-exploration and colostomy creation on 10/16/2019, intra-operatively was found to have "Small amount of continued leak from the old anastomotic site. Some contamination still present. Bowel was all viable". Back on OR on 10/19/2019, findings "small leak from stump staple line". OR again on 10/22/2019 for: Abdominal washout. Closure of abdominal fascia. Wound vac placement. Findings, "contamination from the sigmoid stump closure site." 3. COPD, acute respiratory failure: on the vent. 4. Penicillin allergy - likely not a true allergy, reviewed EMR for previous exposure to PCNs, patient received several days of Zosyn in 2018 without issue. Recs: - Continue off antibiotics Julianna Pineda MD, FACP [facility] ([facility] C: [phone] O: [phone] F: [phone] Subjective Date of service: 10/25/19 Principal diagnosis: acute renal failure Interval history: No fever. No new ID issues. Remains sedated and intubated, on the vent. On trickle feeds. Objective - Exam Narrative Exam: Physical Exam: Constitutional: sedated, intubated Head, Ears, Nose: Normocephalic, atraumatic. External ears, nose normal Eyes: Conjunctivae/corneas clear. No icterus. No ptosis. Neck: intubated Oral: intubated Cardiovascular: S1, S2 normal. Respiratory: Good air entry, few rhonchi bilaterally GI: Midline abdominal VAC. bowel sounds +, Colostomy + drains + Musculoskeletal: anasarca, pedal edema + Skin: No rash or abscess Hem/Lymphatic: No palpable cervical or supraclavicular nodes. No lymphangitis Psych: no agitation Neurological: sedated, intubated, on vent - Constitutional Vitals: Vital Signs Temp Pulse Resp BP Pulse Ox 99.6 F 79 20 113/49 97 10/25/19 04:00 10/25/19 08:45 10/25/19 08:45 10/25/19 08:42 10/25/19 08:42 Temperature -Last 24 Hours Temperature 99.6 F Temperature 99.6 F Temperature 99.2 F Temperature 99.2 F Temperature 98.9 F Temperature 98.9 F Temperature 98.3 F Temperature 97.7 F - Labs CBC & Chem 7: 10/25/19 04:19 10/25/19 04:19 Labs: Abnormal lab results 10/24/19 10/24/19 10/24/19 Range/Units 11:56 13:00 17:42 RBC (3.65-5.03) M/mm3 Hgb (11.8-15.2) gm/dl Hct (35.5-45.6) % RDW (13.2-15.2) % Sodium (137-145) mmol/L Carbon Dioxide (22-30) mmol/L Creatinine (0.8-1.5) mg/dL Glucose (75-100) mg/dL POC Glucose 159 H 120 H (70-105) Total Protein (6.3-8.2) g/dL Albumin (3.9-5) g/dL Triglycerides 216 H (2-149) mg/dL 10/24/19 10/25/19 10/25/19 Range/Units 23:45 04:19 04:19 RBC 2.69 L (3.65-5.03) M/mm3 Hgb 8.1 L (11.8-15.2) gm/dl Hct 23.9 L (35.5-45.6) % RDW 17.3 H (13.2-15.2) % Sodium 147 H (137-145) mmol/L Carbon Dioxide 33 H (22-30) mmol/L Creatinine 0.5 L (0.8-1.5) mg/dL Glucose 111 H (75-100) mg/dL POC Glucose 116 H (70-105) Total Protein 5.7 L D (6.3-8.2) g/dL Albumin 2.5 L (3.9-5) g/dL Triglycerides 230 H (2-149) mg/dL 10/25/19 Range/Units 05:31 RBC (3.65-5.03) M/mm3 Hgb (11.8-15.2) gm/dl Hct (35.5-45.6) % RDW (13.2-15.2) % Sodium (137-145) mmol/L Carbon Dioxide (22-30) mmol/L Creatinine (0.8-1.5) mg/dL Glucose (75-100) mg/dL POC Glucose 126 H (70-105) Total Protein (6.3-8.2) g/dL Albumin (3.9-5) g/dL Triglycerides (2-149) mg/dL
[2019-10-25] MEDS: PANTOPRAZOLE 40 MG INJ IV SCH (10:03)
[2019-10-25] MEDS: AMIODARONE 200 MG TAB PO SCH (10:03)
--- NOTE | 2019-10-25 12:02 | Progress Note ---
Assessment and Plan 54 y/o male with anastomic leak 10/25: Will extubate today. Will use HFNC if distress or hypoxemia is noted. Not a good candidate for bipap given his recent abdominal issues. Spoke with who is now at bedside and surgery. Will continue to attempt to achieve net negative state daily. Hold on further albumin administration. Hypernatremia is iatrogenic from lasix administration Worse case scenario, will re-intubate with anesthesia. 10/24: Responding well to lasix and protein therapy. Will give 2 more doses of lasix today. Consider one for tonight as well. Last albumin today at 1800. CXR is stable, still with layering bilateral pleural effusions. Will reassess again tomorrow. Reviewed all other forestry consultant notes. Spoke with sisters at bedside, updated and spoke with surgery. 10/23: Long discussion with surgery and via phone. Anasarca is likely from decreased oncotic pressure and immobility of several days now that abdomen is finally closed. Now fluid is essentially leaking into the interstitium now that the abdomen is shut and there is increased intra-abdominal pressure. Total Protein is 4.5 and albumin is 1.2. This is to be expected given current illness. Will attempt to increase oncotic pressure with 2 units of PRBC's and albumin infusions for the next 24 hours starting at midnight tonight. Will give lasix inbetween transfusions and then again tonight. CXR is consistent with pulmonary edema volume overload. Will continue vent for now and after signifi cant volume removal then will attempt extubation. Discussed with and she understands. Will continue to monitor. Agree with trickle feeds and cards has switched amio over to PO to be given through the G-tube. If tolerates, hopeful to be rid of TPN soon as this is necessary but excessive volume as well. 10/22: Added diprovan as more sedation was needed. Hopefully once closed and no leaks, patient can be extubated. Cards very concerned about length of time for IV amio. Will discuss with surgery the time frame that gut can be used. 10/21: Will hold on weaning until abdomen is closed, especially knowing mental status is good. Will focus on pain control. Replace electrolytes. Appreciate Surgery recs and detail. Follow up any new recs from cards. Or tomorrow for closure 1. CV-tachycardia but stable BP. Was ok on Amio and Dilt but when BP started dropping, we stopped the dilt. Now rate back up and not controlled on 5. Spoke to nursing about increasing to 10. Continue fluid boluses for BP as needed. Trying not to start pressors if possible. 2. Pulm-stable on Vent. FiO2 down to 45% prior to go to OR. CXR shows right lower lobe airspace disease (10/15). Light green substance in ET tube has stopped. Continue current vent management. Wean once all surgeries are done. 3. GI-Going back to OR again on Tuesday for Washout. 4. Renal- Renal function and output have improved. Will continue to monitor. Had a large volume out that we are actively replacing. This may have added to hypotension this am. 5. Neuro- on rounds, per nursing, patient did not wake up during sedation vacation. Stopping all sedation now. If not able to control rate with drugs, could be related to pain. Spoke to nursing to use PRN pushes to see if this helps HR as well. If patient's mental state does not improve post all surgeries, may need CT head, EEG and neurology evaluation. 6. ID-continues to spike temps. ID following. Defer to them for repeat cultures. Blood has been negative. 7. Electrolytes-Reviewed renal note from yesterday. Overall prognosis is guarded. Will continue to follow. CCT 31 minutes. Subjective Date of service: 10/25/19 Principal diagnosis: acute renal failure Interval history: No acute events. Continues to be net negative. Awakens easily on Fent 4 and Diprovan. Objective Vital Signs - 12hr 10/25/19 10/25/19 10/25/19 00:00 00:04 00:22 Temperature 99.2 F Pulse Rate 80 80 80 Pulse Rate [ Anterior Bilateral Throughout] Pulse Rate [ From Monitor] Respiratory 20 18 Rate Respiratory Rate [Anterior Bilateral Throughout] Blood Pressure 135/58 139/60 135/58 O2 Sat by Pulse 99 98 98 Oximetry 10/25/19 10/25/19 10/25/19 01:00 02:00 03:00 Temperature Pulse Rate 77 70 75 Pulse Rate [ 72 Anterior Bilateral Throughout] Pulse Rate [ From Monitor] Respiratory 20 20 20 Rate Respiratory 20 Rate [Anterior Bilateral Throughout] Blood Pressure 143/54 125/54 116/48 O2 Sat by Pulse 98 96 98 Oximetry 10/25/19 10/25/19 10/25/19 04:00 04:24 05:00 Temperature 99.6 F Pulse Rate 76 83 74 Pulse Rate [ Anterior Bilateral Throughout] Pulse Rate [ 83 From Monitor] Respiratory 24 20 Rate Respiratory Rate [Anterior Bilateral Throughout] Blood Pressure 116/48 120/81 116/47 O2 Sat by Pulse 96 98 Oximetry 10/25/19 10/25/19 10/25/19 06:00 06:37 07:00 Temperature Pulse Rate 74 74 79 Pulse Rate [ Anterior Bilateral Throughout] Pulse Rate [ From Monitor] Respiratory 20 21 Rate Respiratory Rate [Anterior Bilateral Throughout] Blood Pressure 116/49 112/43 123/51 O2 Sat by Pulse 98 99 Oximetry 10/25/19 10/25/19 10/25/19 08:00 08:42 08:45 Temperature 99.7 F H Pulse Rate 90 78 Pulse Rate [ 79 Anterior Bilateral Throughout] Pulse Rate [ From Monitor] Respiratory 20 Rate Respiratory 20 Rate [Anterior Bilateral Throughout] Blood Pressure 127/59 113/49 O2 Sat by Pulse 95 97 Oximetry 10/25/19 11:21 Temperature Pulse Rate 83 Pulse Rate [ Anterior Bilateral Throughout] Pulse Rate [ From Monitor] Respiratory Rate Respiratory Rate [Anterior Bilateral Throughout] Blood Pressure 131/62 O2 Sat by Pulse 99 Oximetry Constitutional: alert Eyes: non-icteric ENT: oropharynx moist Neck: supple Effort: normal Ascultation: Bilateral: diminished breath sounds Cardiovascular: regular rate and rhythm Gastrointestinal: tender Integumentary: normal Extremities: no cyanosis Neurologic: normal mental status, non-focal exam Psychiatric: mood appropriate, affect normal CBC and BMP: 10/25/19 04:19 10/25/19 04:19 ABG, PT/INR, D-dimer: ABG POC ABG pH 7.310 (7.35-7.45) L 10/17/19 05:41 ABG pH 7.390 pH Units (7.350-7.450) 10/23/19 04:47 POC ABG pCO2 52.8 (35-45) H 10/17/19 05:41 ABG pCO2 48.4 mm Hg 10/23/19 04:47 POC ABG pO2 70 (80-105) L 10/17/19 05:41 ABG pO2 68.9 mm Hg (80.0-90.0) L 10/23/19 04:47 POC ABG HCO3 26.6 (22-26 mml/L) 10/17/19 05:41 POC ABG Total CO2 28 (23-27mmol/L) 10/17/19 05:41 POC ABG O2 Sat 92 10/17/19 05:41 ABG O2 Saturation 96.6 % (95.0-99.0) 10/23/19 04:47 Abnormal lab findings: Abnormal Labs 10/06/19 10/06/19 10/07/19 05:36 05:36 05:54 WBC 21.8 H 21.5 H RBC 3.55 L Hgb 10.9 L Hct 32.7 L RDW Plt Count Lymph % (Auto) [place] % (Auto) Lymph # [place] # Seg Neutrophils % Seg Neuts % (Manual) 91.0 H Lymphocytes % (Manual) 2.0 L Seg Neutrophils # Seg Neutrophils # Man 19.8 H Lymphocytes # (Manual) 0.4 L Monocytes # (Manual) 1.1 H POC ABG pH ABG pH POC ABG pCO2 POC ABG pO2 ABG pO2 ABG HCO3 ABG Base Excess ABG Hemoglobin Oxyhemoglobin Sodium 135 L Potassium Chloride 95.9 L Carbon Dioxide BUN Creatinine 0.7 L Glucose POC Glucose Calcium Phosphorus Magnesium Direct Bilirubin AST C-Reactive Protein Serum Total Protein Total Protein 5.7 L Albumin 2.5 L Prealbumin Eddvf-8-Ytsmkroqc Cgxks-9-Pfaefmlva Gamma Globulins PEP Interpretation Triglycerides Urine Creatinine Urine Total Protein Digoxin Crossmatch 10/07/19 10/09/19 10/09/19 05:54 10:52 10:52 WBC 16.6 H RBC Hgb Hct RDW Plt Count 498 H Lymph % (Auto) [place] % (Auto) Lymph # [place] # Seg Neutrophils % Seg Neuts % (Manual) 93.0 H Lymphocytes % (Manual) 5.0 L Seg Neutrophils # Seg Neutrophils # Man 15.4 H Lymphocytes # (Manual) 0.8 L Monocytes # (Manual) POC ABG pH ABG pH POC ABG pCO2 POC ABG pO2 ABG pO2 ABG HCO3 ABG Base Excess ABG Hemoglobin Oxyhemoglobin Sodium Potassium Chloride 97.9 L Carbon Dioxide 20 L D BUN 23 H Creatinine 1.7 H D Glucose 109 H POC Glucose Calcium 8.1 L Phosphorus Magnesium Direct Bilirubin AST C-Reactive Protein Serum Total Protein Total Protein Albumin Prealbumin Rcgwi-9-Jzybtrpdi Iootg-7-Bovfbggdo Gamma Globulins PEP Interpretation Triglycerides Urine Creatinine Urine Total Protein Digoxin Crossmatch 10/09/19 10/10/19 10/10/19 17:23 05:30 05:30 WBC 14.6 H RBC Hgb 11.1 L Hct 33.5 L RDW Plt Count 527 H Lymph % (Auto) [place] % (Auto) Lymph # [place] # Seg Neutrophils % Seg Neuts % (Manual) Lymphocytes % (Manual) Seg Neutrophils # Seg Neutrophils # Man Lymphocytes # (Manual) Monocytes # (Manual) POC ABG pH ABG pH POC ABG pCO2 POC ABG pO2 ABG pO2 ABG HCO3 ABG Base Excess ABG Hemoglobin Oxyhemoglobin Sodium 130 L D Potassium 5.1 H Chloride 90.0 L 91.0 L Carbon Dioxide 20 L 20 L BUN 27 H 35 H Creatinine 1.9 H 2.0 H Glucose 104 H POC Glucose Calcium Phosphorus Magnesium Direct Bilirubin AST C-Reactive Protein Serum Total Protein Total Protein Albumin Prealbumin Bqmex-1-Mhqegltty Pfnun-9-Yzqdwbohp Gamma Globulins PEP Interpretation Triglycerides Urine Creatinine Urine Total Protein Digoxin Crossmatch 10/10/19 10/10/19 10/11/19 08:33 08:44 05:41 WBC 13.2 H RBC Hgb 11.3 L Hct 33.8 L RDW 15.3 H Plt Count 543 H Lymph % (Auto) [place] % (Auto) Lymph # [place] # Seg Neutrophils % Seg Neuts % (Manual) Lymphocytes % (Manual) Seg Neutrophils # Seg Neutrophils # Man Lymphocytes # (Manual) Monocytes # (Manual) POC ABG pH ABG pH POC ABG pCO2 POC ABG pO2 ABG pO2 ABG HCO3 ABG Base Excess ABG Hemoglobin Oxyhemoglobin Sodium Potassium Chloride Carbon Dioxide BUN Creatinine Glucose 113 H POC Glucose 117 H Calcium Phosphorus Magnesium Direct Bilirubin AST C-Reactive Protein Serum Total Protein Total Protein Albumin Prealbumin Ngbcz-9-Vkscomime Rbfnq-1-Orlnphhrd Gamma Globulins PEP Interpretation Triglycerides Urine Creatinine Urine Total Protein Digoxin Crossmatch 10/11/19 10/11/19 10/11/19 05:41 06:23 06:23 WBC RBC Hgb Hct RDW Plt Count Lymph % (Auto) [place] % (Auto) Lymph # [place] # Seg Neutrophils % Seg Neuts % (Manual) Lymphocytes % (Manual) Seg Neutrophils # Seg Neutrophils # Man Lymphocytes # (Manual) Monocytes # (Manual) POC ABG pH ABG pH POC ABG pCO2 POC ABG pO2 ABG pO2 ABG HCO3 ABG Base Excess ABG Hemoglobin Oxyhemoglobin Sodium 134 L Potassium Chloride 96.3 L Carbon Dioxide BUN 37 H Creatinine Glucose 58 L POC Glucose Calcium Phosphorus 4.90 H Magnesium Direct Bilirubin AST C-Reactive Protein Serum Total Protein Total Protein Albumin Prealbumin Ozceo-6-Kxlfmijuh Kfybg-3-Jnnrmhxif Gamma Globulins PEP Interpretation Triglycerides Urine Creatinine 118.2 H 116.8 H Urine Total Protein 105 H 104 H Digoxin Crossmatch 10/11/19 10/12/19 10/12/19 09:00 06:09 06:09 WBC 13.8 H RBC 3.39 L Hgb 10.2 L Hct 30.9 L RDW 15.5 H Plt Count 459 H Lymph % (Auto) [place] % (Auto) Lymph # [place] # Seg Neutrophils % Seg Neuts % (Manual) Lymphocytes % (Manual) Seg Neutrophils # Seg Neutrophils # Man Lymphocytes # (Manual) Monocytes # (Manual) POC ABG pH ABG pH POC ABG pCO2 POC ABG pO2 ABG pO2 ABG HCO3 ABG Base Excess ABG Hemoglobin Oxyhemoglobin Sodium 131 L Potassium Chloride 96.2 L Carbon Dioxide 21 L BUN 43 H Creatinine Glucose 72 L POC Glucose Calcium Phosphorus Magnesium Direct Bilirubin AST C-Reactive Protein Serum Total Protein 5.2 L Total Protein Albumin 1.9 L Prealbumin Tcidb-8-Idcepixrm 0.9 H Srnng-8-Tyeitihcy 1.0 H Gamma Globulins 0.7 L PEP Interpretation see below H Triglycerides Urine Creatinine Urine Total Protein Digoxin Crossmatch 10/12/19 10/12/19 10/12/19 08:20 09:30 09:30 WBC RBC Hgb Hct RDW Plt Count Lymph % (Auto) [place] % (Auto) Lymph # [place] # Seg Neutrophils % Seg Neuts % (Manual) Lymphocytes % (Manual) Seg Neutrophils # Seg Neutrophils # Man Lymphocytes # (Manual) Monocytes # (Manual) POC ABG pH ABG pH POC ABG pCO2 POC ABG pO2 63 L ABG pO2 ABG HCO3 ABG Base Excess ABG Hemoglobin Oxyhemoglobin Sodium Potassium Chloride Carbon Dioxide BUN Creatinine Glucose POC Glucose Calcium Phosphorus Magnesium 2.50 H Direct Bilirubin 0.3 H AST C-Reactive Protein Serum Total Protein Total Protein 5.1 L Albumin 2.2 L Prealbumin Zdgbw-2-Hgfuculno Aivmo-0-Lkgeqvdup Gamma Globulins PEP Interpretation Triglycerides Urine Creatinine Urine Total Protein Digoxin Crossmatch 10/13/19 10/13/19 10/13/19 04:20 04:20 13:20 WBC 15.7 H RBC 3.64 L Hgb 10.9 L Hct 33.1 L RDW 15.8 H Plt Count 488 H Lymph % (Auto) [place] % (Auto) Lymph # [place] # Seg Neutrophils % Seg Neuts % (Manual) Lymphocytes % (Manual) Seg Neutrophils # Seg Neutrophils # Man Lymphocytes # (Manual) Monocytes # (Manual) POC ABG pH ABG pH POC ABG pCO2 POC ABG pO2 ABG pO2 ABG HCO3 ABG Base Excess ABG Hemoglobin Oxyhemoglobin Sodium Potassium Chloride Carbon Dioxide BUN 28 H Creatinine Glucose POC Glucose Calcium Phosphorus Magnesium Direct Bilirubin AST C-Reactive Protein Serum Total Protein Total Protein Albumin Prealbumin Xmkfg-3-Mjzmqiclc Ceego-2-Tbwyognxb Gamma Globulins PEP Interpretation Triglycerides Urine Creatinine Urine Total Protein Digoxin Crossmatch See Detail 10/13/19 10/13/19 10/14/19 18:24 20:05 04:47 WBC 24.2 H RBC Hgb 10.9 L Hct 34.2 L RDW 17.0 H Plt Count 442 H Lymph % (Auto) [place] % (Auto) Lymph # [place] # Seg Neutrophils % Seg Neuts % (Manual) Lymphocytes % (Manual) Seg Neutrophils # Seg Neutrophils # Man Lymphocytes # (Manual) Monocytes # (Manual) POC ABG pH ABG pH 7.180 L* 7.278 L POC ABG pCO2 POC ABG pO2 ABG pO2 130.7 H ABG HCO3 ABG Base Excess -6.5 L -6.5 L ABG Hemoglobin 12.2 L 12.3 L Oxyhemoglobin 92.9 L Sodium Potassium Chloride Carbon Dioxide BUN Creatinine Glucose POC Glucose Calcium Phosphorus Magnesium Direct Bilirubin AST C-Reactive Protein Serum Total Protein Total Protein Albumin Prealbumin Xqemr-1-Rkseargqi Buuiw-1-Jgigrqrzz Gamma Globulins PEP Interpretation Triglycerides Urine Creatinine Urine Total Protein Digoxin Crossmatch 10/14/19 10/14/19 10/14/19 04:47 05:40 10:14 WBC RBC Hgb Hct RDW Plt Count Lymph % (Auto) [place] % (Auto) Lymph # [place] # Seg Neutrophils % Seg Neuts % (Manual) Lymphocytes % (Manual) Seg Neutrophils # Seg Neutrophils # Man Lymphocytes # (Manual) Monocytes # (Manual) POC ABG pH ABG pH POC ABG pCO2 POC ABG pO2 ABG pO2 76.3 L ABG HCO3 19.1 L ABG Base Excess -5.8 L ABG Hemoglobin 10.9 L Oxyhemoglobin 93.4 L Sodium Potassium 5.1 H D Chloride 109.2 H Carbon Dioxide 17 L BUN 38 H Creatinine 1.8 H D Glucose 104 H POC Glucose Calcium 7.4 L Phosphorus 5.60 H Magnesium Direct Bilirubin AST C-Reactive Protein Serum Total Protein Total Protein Albumin Prealbumin Iighw-8-Vqdeibvjt Owfqg-4-Iftzmyvqb Gamma Globulins PEP Interpretation Triglycerides Urine Creatinine Urine Total Protein Digoxin Crossmatch 10/14/19 10/15/19 10/15/19 23:46 04:32 04:32 WBC 15.5 H RBC 2.89 L Hgb 8.8 L Hct 27.3 L D RDW 16.6 H Plt Count Lymph % (Auto) [place] % (Auto) Lymph # [place] # Seg Neutrophils % Seg Neuts % (Manual) Lymphocytes % (Manual) Seg Neutrophils # Seg Neutrophils # Man Lymphocytes # (Manual) Monocytes # (Manual) POC ABG pH ABG pH POC ABG pCO2 POC ABG pO2 ABG pO2 ABG HCO3 ABG Base Excess ABG Hemoglobin Oxyhemoglobin Sodium 147 H Potassium Chloride 114.0 H Carbon Dioxide 19 L BUN 42 H Creatinine Glucose 112 H POC Glucose 113 H Calcium 7.3 L Phosphorus Magnesium Direct Bilirubin AST 72 H C-Reactive Protein 30.60 H Serum Total Protein Total Protein 4.0 L D Albumin 1.7 L Prealbumin 0.030 L Xqzhz-7-Tusisbkrw Zzfqc-2-Flzxdqaat Gamma Globulins PEP Interpretation Triglycerides Urine Creatinine Urine Total Protein Digoxin Crossmatch 10/15/19 10/15/19 10/15/19 05:30 12:08 17:23 WBC RBC Hgb Hct RDW Plt Count Lymph % (Auto) [place] % (Auto) Lymph # [place] # Seg Neutrophils % Seg Neuts % (Manual) Lymphocytes % (Manual) Seg Neutrophils # Seg Neutrophils # Man Lymphocytes # (Manual) Monocytes # (Manual) POC ABG pH ABG pH 7.296 L POC ABG pCO2 POC ABG pO2 ABG pO2 114.7 H ABG HCO3 ABG Base Excess -3.7 L ABG Hemoglobin 8.9 L Oxyhemoglobin Sodium Potassium Chloride Carbon Dioxide BUN Creatinine Glucose POC Glucose 106 H 106 H Calcium Phosphorus Magnesium Direct Bilirubin AST C-Reactive Protein Serum Total Protein Total Protein Albumin Prealbumin Bizjq-6-Lcqnpickk Cylrm-4-Xntrdypxe Gamma Globulins PEP Interpretation Triglycerides Urine Creatinine Urine Total Protein Digoxin Crossmatch 10/16/19 10/16/19 10/16/19 00:07 04:44 05:24 WBC RBC Hgb Hct RDW Plt Count Lymph % (Auto) [place] % (Auto) Lymph # [place] # Seg Neutrophils % Seg Neuts % (Manual) Lymphocytes % (Manual) Seg Neutrophils # Seg Neutrophils # Man Lymphocytes # (Manual) Monocytes # (Manual) POC ABG pH ABG pH POC ABG pCO2 POC ABG pO2 ABG pO2 ABG HCO3 ABG Base Excess ABG Hemoglobin Oxyhemoglobin Sodium 150 H Potassium Chloride 115.8 H Carbon Dioxide BUN 35 H Creatinine Glucose 129 H POC Glucose 119 H 129 H Calcium 7.3 L Phosphorus 1.80 L D Magnesium Direct Bilirubin AST C-Reactive Protein Serum Total Protein Total Protein Albumin Prealbumin Gjkpg-8-Qgrcrtlly Lrvdv-7-Tuxztiwct Gamma Globulins PEP Interpretation Triglycerides Urine Creatinine Urine Total Protein Digoxin Crossmatch 10/16/19 10/16/19 10/16/19 06:53 09:20 11:58 WBC 14.6 H RBC 2.70 L Hgb 8.1 L Hct 25.2 L RDW 16.7 H Plt Count Lymph % (Auto) [place] % (Auto) Lymph # [place] # Seg Neutrophils % Seg Neuts % (Manual) 79.0 H Lymphocytes % (Manual) 4.0 L Seg Neutrophils # Seg Neutrophils # Man 11.5 H Lymphocytes # (Manual) 0.6 L Monocytes # (Manual) POC ABG pH ABG pH POC ABG pCO2 47.0 H POC ABG pO2 ABG pO2 ABG HCO3 ABG Base Excess ABG Hemoglobin Oxyhemoglobin Sodium Potassium Chloride Carbon Dioxide BUN Creatinine Glucose POC Glucose Calcium Phosphorus Magnesium Direct Bilirubin AST C-Reactive Protein Serum Total Protein Total Protein Albumin Prealbumin Mdzxx-5-Ocbxpzcba Exokq-9-Ffythsytf Gamma Globulins PEP Interpretation Triglycerides Urine Creatinine Urine Total Protein Digoxin Crossmatch See Detail 10/16/19 10/16/19 10/16/19 15:23 17:50 23:58 WBC RBC Hgb Hct RDW Plt Count Lymph % (Auto) [place] % (Auto) Lymph # [place] # Seg Neutrophils % Seg Neuts % (Manual) Lymphocytes % (Manual) Seg Neutrophils # Seg Neutrophils # Man Lymphocytes # (Manual) Monocytes # (Manual) POC ABG pH ABG pH POC ABG pCO2 POC ABG pO2 ABG pO2 ABG HCO3 ABG Base Excess ABG Hemoglobin Oxyhemoglobin Sodium Potassium Chloride Carbon Dioxide BUN Creatinine Glucose POC Glucose 221 H 201 H 179 H Calcium Phosphorus Magnesium Direct Bilirubin AST C-Reactive Protein Serum Total Protein Total Protein Albumin Prealbumin Gdpjf-4-Xjssgaklz Ukxzr-6-Sahcgbqpk Gamma Globulins PEP Interpretation Triglycerides Urine Creatinine Urine Total Protein Digoxin Crossmatch 10/17/19 10/17/19 10/17/19 04:08 04:08 05:41 WBC 22.3 H RBC 3.35 L Hgb 10.0 L Hct 31.2 L D RDW 16.1 H Plt Count Lymph % (Auto) [place] % (Auto) Lymph # [place] # Seg Neutrophils % Seg Neuts % (Manual) Lymphocytes % (Manual) Seg Neutrophils # Seg Neutrophils # Man Lymphocytes # (Manual) Monocytes # (Manual) POC ABG pH 7.310 L ABG pH POC ABG pCO2 52.8 H POC ABG pO2 70 L ABG pO2 ABG HCO3 ABG Base Excess ABG Hemoglobin Oxyhemoglobin Sodium 147 H Potassium Chloride 114.9 H Carbon Dioxide BUN 36 H Creatinine Glucose 165 H POC Glucose Calcium 6.9 L Phosphorus 2.20 L D Magnesium Direct Bilirubin AST C-Reactive Protein Serum Total Protein Total Protein Albumin Prealbumin Vyvmb-1-Fkeavqula Arwmr-1-Bznectjqc Gamma Globulins PEP Interpretation Triglycerides Urine Creatinine Urine Total Protein Digoxin Crossmatch 10/17/19 10/17/19 10/17/19 05:42 11:33 18:17 WBC RBC Hgb Hct RDW Plt Count Lymph % (Auto) [place] % (Auto) Lymph # [place] # Seg Neutrophils % Seg Neuts % (Manual) Lymphocytes % (Manual) Seg Neutrophils # Seg Neutrophils # Man Lymphocytes # (Manual) Monocytes # (Manual) POC ABG pH ABG pH POC ABG pCO2 POC ABG pO2 ABG pO2 ABG HCO3 ABG Base Excess ABG Hemoglobin Oxyhemoglobin Sodium Potassium Chloride Carbon Dioxide BUN Creatinine Glucose POC Glucose 149 H 154 H 163 H Calcium Phosphorus Magnesium Direct Bilirubin AST C-Reactive Protein Serum Total Protein Total Protein Albumin Prealbumin Krrmo-4-Cqhapfjkd Yrhwu-7-Iizagpyfo Gamma Globulins PEP Interpretation Triglycerides Urine Creatinine Urine Total Protein Digoxin Crossmatch 10/17/19 10/18/19 10/18/19 23:34 03:29 04:50 WBC RBC Hgb Hct RDW Plt Count Lymph % (Auto) [place] % (Auto) Lymph # [place] # Seg Neutrophils % Seg Neuts % (Manual) Lymphocytes % (Manual) Seg Neutrophils # Seg Neutrophils # Man Lymphocytes # (Manual) Monocytes # (Manual) POC ABG pH ABG pH POC ABG pCO2 POC ABG pO2 ABG pO2 78.8 L ABG HCO3 ABG Base Excess ABG Hemoglobin 8.8 L Oxyhemoglobin Sodium Potassium Chloride 111.8 H Carbon Dioxide BUN 27 H Creatinine 0.6 L Glucose 140 H POC Glucose 135 H Calcium 7.1 L Phosphorus 1.80 L Magnesium Direct Bilirubin AST C-Reactive Protein Serum Total Protein Total Protein Albumin Prealbumin Odcks-6-Hammuvmnn Zgpzg-5-Qjwvzoroy Gamma Globulins PEP Interpretation Triglycerides Urine Creatinine Urine Total Protein Digoxin Crossmatch 10/18/19 10/18/19 10/18/19 05:45 11:19 18:26 WBC RBC Hgb Hct RDW Plt Count Lymph % (Auto) [place] % (Auto) Lymph # [place] # Seg Neutrophils % Seg Neuts % (Manual) Lymphocytes % (Manual) Seg Neutrophils # Seg Neutrophils # Man Lymphocytes # (Manual) Monocytes # (Manual) POC ABG pH ABG pH POC ABG pCO2 POC ABG pO2 ABG pO2 ABG HCO3 ABG Base Excess ABG Hemoglobin Oxyhemoglobin Sodium Potassium Chloride Carbon Dioxide BUN Creatinine Glucose POC Glucose 145 H 152 H 125 H Calcium Phosphorus Magnesium Direct Bilirubin AST C-Reactive Protein Serum Total Protein Total Protein Albumin Prealbumin [place]-6-Kjelwncki Ostji-1-Scjdbnwla Gamma Globulins PEP Interpretation Triglycerides Urine Creatinine Urine Total Protein Digoxin Crossmatch 10/18/19 10/19/19 10/19/19 23:27 04:21 04:21 WBC RBC Hgb Hct RDW Plt Count Lymph % (Auto) [place] % (Auto) Lymph # [place] # Seg Neutrophils % Seg Neuts % (Manual) Lymphocytes % (Manual) Seg Neutrophils # Seg Neutrophils # Man Lymphocytes # (Manual) Monocytes # (Manual) POC ABG pH ABG pH POC ABG pCO2 POC ABG pO2 ABG pO2 ABG HCO3 ABG Base Excess ABG Hemoglobin Oxyhemoglobin Sodium Potassium Chloride 108.4 H Carbon Dioxide BUN 22 H Creatinine 0.5 L Glucose 123 H POC Glucose 127 H Calcium 7.4 L Phosphorus 1.80 L Magnesium Direct Bilirubin AST C-Reactive Protein Serum Total Protein Total Protein Albumin Prealbumin Aejcn-1-Gpynrybrt Azmtn-2-Rezidnkwt Gamma Globulins PEP Interpretation Triglycerides Urine Creatinine Urine Total Protein Digoxin 0.7 L Crossmatch 10/19/19 10/19/19 10/19/19 05:00 05:35 11:26 WBC RBC Hgb Hct RDW Plt Count Lymph % (Auto) [place] % (Auto) Lymph # [place] # Seg Neutrophils % Seg Neuts % (Manual) Lymphocytes % (Manual) Seg Neutrophils # Seg Neutrophils # Man Lymphocytes # (Manual) Monocytes # (Manual) POC ABG pH ABG pH 7.456 H POC ABG pCO2 POC ABG pO2 ABG pO2 78.8 L ABG HCO3 ABG Base Excess ABG Hemoglobin 5.6 L Oxyhemoglobin Sodium Potassium Chloride Carbon Dioxide BUN Creatinine Glucose POC Glucose 124 H 111 H Calcium Phosphorus Magnesium Direct Bilirubin AST C-Reactive Protein Serum Total Protein Total Protein Albumin Prealbumin Wmibh-5-Ttblmfass Ddtqn-5-Vmzdidxpc Gamma Globulins PEP Interpretation Triglycerides Urine Creatinine Urine Total Protein Digoxin Crossmatch 10/19/19 10/20/19 10/20/19 23:23 04:50 05:17 WBC RBC Hgb Hct RDW Plt Count Lymph % (Auto) [place] % (Auto) Lymph # [place] # Seg Neutrophils % Seg Neuts % (Manual) Lymphocytes % (Manual) Seg Neutrophils # Seg Neutrophils # Man Lymphocytes # (Manual) Monocytes # (Manual) POC ABG pH ABG pH POC ABG pCO2 POC ABG pO2 ABG pO2 ABG HCO3 ABG Base Excess ABG Hemoglobin Oxyhemoglobin Sodium Potassium Chloride 108.1 H Carbon Dioxide BUN Creatinine 0.4 L Glucose 134 H POC Glucose 129 H 123 H Calcium 7.1 L Phosphorus Magnesium Direct Bilirubin AST C-Reactive Protein Serum Total Protein Total Protein Albumin Prealbumin Ikqmy-2-Dpiauyrgr Ktasg-4-Qyvafiaeb Gamma Globulins PEP Interpretation Triglycerides Urine Creatinine Urine Total Protein Digoxin Crossmatch 10/20/19 10/20/19 10/21/19 11:40 19:06 05:08 WBC RBC Hgb Hct RDW Plt Count Lymph % (Auto) [place] % (Auto) Lymph # [place] # Seg Neutrophils % Seg Neuts % (Manual) Lymphocytes % (Manual) Seg Neutrophils # Seg Neutrophils # Man Lymphocytes # (Manual) Monocytes # (Manual) POC ABG pH ABG pH POC ABG pCO2 POC ABG pO2 ABG pO2 ABG HCO3 ABG Base Excess ABG Hemoglobin Oxyhemoglobin Sodium Potassium Chloride Carbon Dioxide BUN Creatinine Glucose POC Glucose 139 H 117 H 131 H Calcium Phosphorus Magnesium Direct Bilirubin AST C-Reactive Protein Serum Total Protein Total Protein Albumin Prealbumin Hpmem-2-Hcxnplalu Ijgfu-4-Jufgujkmc Gamma Globulins PEP Interpretation Triglycerides Urine Creatinine Urine Total Protein Digoxin Crossmatch 10/21/19 10/21/19 10/21/19 05:30 12:04 17:31 WBC RBC Hgb Hct RDW Plt Count Lymph % (Auto) [place] % (Auto) Lymph # [place] # Seg Neutrophils % Seg Neuts % (Manual) Lymphocytes % (Manual) Seg Neutrophils # Seg Neutrophils # Man Lymphocytes # (Manual) Monocytes # (Manual) POC ABG pH ABG pH POC ABG pCO2 POC ABG pO2 ABG pO2 ABG HCO3 ABG Base Excess ABG Hemoglobin Oxyhemoglobin Sodium Potassium Chloride 107.8 H Carbon Dioxide BUN Creatinine 0.5 L Glucose 119 H POC Glucose 119 H 110 H Calcium 7.6 L Phosphorus Magnesium Direct Bilirubin AST C-Reactive Protein Serum Total Protein Total Protein Albumin Prealbumin Brfqk-6-Nsdfmfbuo Tzlbo-6-Bmbxgbswj Gamma Globulins PEP Interpretation Triglycerides Urine Creatinine Urine Total Protein Digoxin Crossmatch 10/22/19 10/22/19 10/22/19 05:14 05:37 12:07 WBC RBC Hgb Hct RDW Plt Count Lymph % (Auto) [place] % (Auto) Lymph # [place] # Seg Neutrophils % Seg Neuts % (Manual) Lymphocytes % (Manual) Seg Neutrophils # Seg Neutrophils # Man Lymphocytes # (Manual) Monocytes # (Manual) POC ABG pH ABG pH POC ABG pCO2 POC ABG pO2 ABG pO2 ABG HCO3 ABG Base Excess ABG Hemoglobin Oxyhemoglobin Sodium Potassium Chloride Carbon Dioxide BUN Creatinine 0.5 L Glucose 116 H POC Glucose 110 H 126 H Calcium 7.7 L Phosphorus Magnesium Direct Bilirubin AST C-Reactive Protein Serum Total Protein Total Protein Albumin Prealbumin Bgiix-4-Fprieatqk Xtotl-2-Hihuphucm Gamma Globulins PEP Interpretation Triglycerides Urine Creatinine Urine Total Protein Digoxin Crossmatch 10/22/19 10/22/19 10/23/19 18:36 23:19 04:39 WBC RBC Hgb Hct RDW Plt Count Lymph % (Auto) [place] % (Auto) Lymph # [place] # Seg Neutrophils % Seg Neuts % (Manual) Lymphocytes % (Manual) Seg Neutrophils # Seg Neutrophils # Man Lymphocytes # (Manual) Monocytes # (Manual) POC ABG pH ABG pH POC ABG pCO2 POC ABG pO2 ABG pO2 ABG HCO3 ABG Base Excess ABG Hemoglobin Oxyhemoglobin Sodium Potassium Chloride Carbon Dioxide BUN Creatinine Glucose POC Glucose 120 H 127 H 112 H Calcium Phosphorus Magnesium Direct Bilirubin AST C-Reactive Protein Serum Total Protein Total Protein Albumin Prealbumin Amqzv-1-Orfzaomsx Kaapi-8-Cyklhukjp Gamma Globulins PEP Interpretation Triglycerides Urine Creatinine Urine Total Protein Digoxin Crossmatch 10/23/19 10/23/19 10/23/19 04:47 05:15 10:44 WBC 18.3 H RBC 2.33 L Hgb 7.0 L Hct 21.5 L RDW 16.2 H Plt Count Lymph % (Auto) 4.9 L [place] % (Auto) 8.1 H Lymph # 0.9 L [place] # 1.5 H Seg Neutrophils % 86.7 H Seg Neuts % (Manual) Lymphocytes % (Manual) Seg Neutrophils # 15.9 H Seg Neutrophils # Man Lymphocytes # (Manual) Monocytes # (Manual) POC ABG pH ABG pH POC ABG pCO2 POC ABG pO2 ABG pO2 68.9 L ABG HCO3 28.7 H ABG Base Excess 3.4 H ABG Hemoglobin 6.6 L Oxyhemoglobin 94.1 L Sodium Potassium Chloride Carbon Dioxide BUN Creatinine 0.5 L Glucose 165 H POC Glucose Calcium 7.4 L Phosphorus Magnesium Direct Bilirubin AST C-Reactive Protein Serum Total Protein Total Protein Albumin Prealbumin Wllfj-5-Idltkolti Qelke-0-Rvibuyisc Gamma Globulins PEP Interpretation Triglycerides Urine Creatinine Urine Total Protein Digoxin Crossmatch 10/23/19 10/23/19 10/23/19 10:44 11:46 11:50 WBC RBC Hgb Hct RDW Plt Count Lymph % (Auto) [place] % (Auto) Lymph # [place] # Seg Neutrophils % Seg Neuts % (Manual) Lymphocytes % (Manual) Seg Neutrophils # Seg Neutrophils # Man Lymphocytes # (Manual) Monocytes # (Manual) POC ABG pH ABG pH POC ABG pCO2 POC ABG pO2 ABG pO2 ABG HCO3 ABG Base Excess ABG Hemoglobin Oxyhemoglobin Sodium Potassium Chloride Carbon Dioxide BUN Creatinine Glucose POC Glucose 138 H Calcium Phosphorus Magnesium Direct Bilirubin 0.7 H AST C-Reactive Protein Serum Total Protein Total Protein 4.5 L Albumin 1.2 L Prealbumin Eiohr-3-Lpezfkier Fybrt-1-Mhajjutht Gamma Globulins PEP Interpretation Triglycerides Urine Creatinine Urine Total Protein Digoxin Crossmatch See Detail 10/23/19 10/24/19 10/24/19 17:53 00:07 05:05 WBC RBC Hgb Hct RDW Plt Count Lymph % (Auto) [place] % (Auto) Lymph # [place] # Seg Neutrophils % Seg Neuts % (Manual) Lymphocytes % (Manual) Seg Neutrophils # Seg Neutrophils # Man Lymphocytes # (Manual) Monocytes # (Manual) POC ABG pH ABG pH POC ABG pCO2 POC ABG pO2 ABG pO2 ABG HCO3 ABG Base Excess ABG Hemoglobin Oxyhemoglobin Sodium Potassium 3.5 L Chloride Carbon Dioxide BUN Creatinine 0.5 L Glucose 116 H POC Glucose 137 H 110 H Calcium 8.0 L Phosphorus Magnesium Direct Bilirubin AST C-Reactive Protein Serum Total Protein Total Protein Albumin Prealbumin Akjua-0-Grcgebuxf Konbl-1-Tlytmvlqp Gamma Globulins PEP Interpretation Triglycerides Urine Creatinine Urine Total Protein Digoxin Crossmatch 10/24/19 10/24/19 10/24/19 05:05 11:56 13:00 WBC 13.0 H RBC 2.73 L Hgb 8.0 L Hct 24.2 L RDW 17.9 H Plt Count Lymph % (Auto) 7.0 L [place] % (Auto) 9.5 H Lymph # 0.9 L [place] # 1.2 H Seg Neutrophils % 82.7 H Seg Neuts % (Manual) Lymphocytes % (Manual) Seg Neutrophils # 10.7 H Seg Neutrophils # Man Lymphocytes # (Manual) Monocytes # (Manual) POC ABG pH ABG pH POC ABG pCO2 POC ABG pO2 ABG pO2 ABG HCO3 ABG Base Excess ABG Hemoglobin Oxyhemoglobin Sodium Potassium Chloride Carbon Dioxide BUN Creatinine Glucose POC Glucose 159 H Calcium Phosphorus Magnesium Direct Bilirubin AST C-Reactive Protein Serum Total Protein Total Protein Albumin Prealbumin Njfhc-1-Fumnxaqhx Wsjji-8-Gkuwhafsc Gamma Globulins PEP Interpretation Triglycerides 216 H Urine Creatinine Urine Total Protein Digoxin Crossmatch 10/24/19 10/24/19 10/25/19 17:42 23:45 04:19 WBC RBC Hgb Hct RDW Plt Count Lymph % (Auto) [place] % (Auto) Lymph # [place] # Seg Neutrophils % Seg Neuts % (Manual) Lymphocytes % (Manual) Seg Neutrophils # Seg Neutrophils # Man Lymphocytes # (Manual) Monocytes # (Manual) POC ABG pH ABG pH POC ABG pCO2 POC ABG pO2 ABG pO2 ABG HCO3 ABG Base Excess ABG Hemoglobin Oxyhemoglobin Sodium 147 H Potassium Chloride Carbon Dioxide 33 H BUN Creatinine 0.5 L Glucose 111 H POC Glucose 120 H 116 H Calcium Phosphorus Magnesium Direct Bilirubin AST C-Reactive Protein Serum Total Protein Total Protein 5.7 L D Albumin 2.5 L Prealbumin Ukwxt-1-Jwqakeuzl Rhtry-0-Yvwpqfltx Gamma Globulins PEP Interpretation Triglycerides 230 H Urine Creatinine Urine Total Protein Digoxin Crossmatch 10/25/19 10/25/19 04:19 05:31 WBC RBC 2.69 L Hgb 8.1 L Hct 23.9 L RDW 17.3 H Plt Count Lymph % (Auto) [place] % (Auto) Lymph # [place] # Seg Neutrophils % Seg Neuts % (Manual) Lymphocytes % (Manual) Seg Neutrophils # Seg Neutrophils # Man Lymphocytes # (Manual) Monocytes # (Manual) POC ABG pH ABG pH POC ABG pCO2 POC ABG pO2 ABG pO2 ABG HCO3 ABG Base Excess ABG Hemoglobin Oxyhemoglobin Sodium Potassium Chloride Carbon Dioxide BUN Creatinine Glucose POC Glucose 126 H Calcium Phosphorus Magnesium Direct Bilirubin AST C-Reactive Protein Serum Total Protein Total Protein Albumin Prealbumin Zlsyp-9-Onbloysjp Kpbjb-2-Ukohyfiqc Gamma Globulins PEP Interpretation Triglycerides Urine Creatinine Urine Total Protein Digoxin Crossmatch
--- NOTE | 2019-10-25 12:19 | Progress Note ---
Assessment and Plan Atrial fibrillation/flutter, spontaneously reverted to sinus rhythm treated with adenosine x1 on 10/15 on oral amiodarone and IV metoprolol for suppression Sepsis Severe abdominal pain s/p exploratory laparotomy, abdominal washout, closure of abdominal fascia with wound vac placement on 10/05 s/p abdominal washout with partial colectomy and left colostomy on 10/16 s/p abdominal washout and closure on 10/22 Recent colon resection for bowel perforation following a colonoscopy Atypical chest pain troponins are normal Hx of ME/CAD [facility] 12/2017: PCI of the circumflex and second vessel POBA of the distal LAD occlusion. Left ventricle fraction 45-50%. Tobacco abuse COPD Hypertension Hyperlipidemia Continue medical management for atrial fibrillation suppression. Subjective Date of service: 10/25/19 Principal diagnosis: acute renal failure Interval history: Patient remains intubated on the vent. Stable sinus rhythm on telemetry. Objective Vital Signs Temp Pulse Pulse Pulse Resp Resp BP 10/25/19 11:21 83 131/62 10/25/19 08:45 79 20 10/25/19 08:42 78 113/49 10/25/19 08:00 99.7 F H 90 20 127/59 10/25/19 07:00 79 21 123/51 10/25/19 06:37 74 112/43 10/25/19 06:00 74 20 116/49 10/25/19 05:00 74 20 116/47 10/25/19 04:24 83 120/81 10/25/19 04:00 99.6 F 76 83 24 116/48 10/25/19 03:00 75 20 116/48 10/25/19 02:00 70 72 20 20 125/54 10/25/19 01:00 77 20 143/54 10/25/19 00:22 80 135/58 10/25/19 00:04 80 18 139/60 10/25/19 00:00 99.2 F 80 20 135/58 10/24/19 23:00 84 20 133/38 10/24/19 22:00 76 20 128/44 10/24/19 21:25 71 131/52 10/24/19 21:00 72 19 131/52 10/24/19 20:53 74 20 10/24/19 20:45 73 123/50 10/24/19 20:00 77 19 125/50 10/24/19 19:57 98.9 F 76 16 10/24/19 19:54 98.9 F 10/24/19 19:00 69 19 127/54 10/24/19 18:00 71 18 127/47 10/24/19 17:00 76 20 124/45 10/24/19 16:00 98.3 F 75 20 101/48 10/24/19 15:36 69 117/47 10/24/19 15:30 78 18 10/24/19 15:00 67 20 119/47 10/24/19 14:00 68 20 117/45 10/24/19 13:35 73 127/44 10/24/19 13:10 73 127/44 10/24/19 13:00 68 20 127/44 Pulse Ox 10/25/19 11:21 99 10/25/19 08:45 10/25/19 08:42 97 10/25/19 08:00 95 10/25/19 07:00 99 10/25/19 06:37 10/25/19 06:00 98 10/25/19 05:00 98 10/25/19 04:24 96 10/25/19 04:00 10/25/19 03:00 98 10/25/19 02:00 96 10/25/19 01:00 98 10/25/19 00:22 98 10/25/19 00:04 98 10/25/19 00:00 99 10/24/19 23:00 98 10/24/19 22:00 100 10/24/19 21:25 10/24/19 21:00 98 10/24/19 20:53 10/24/19 20:45 99 10/24/19 20:00 98 10/24/19 19:57 99 10/24/19 19:54 10/24/19 19:00 98 10/24/19 18:00 98 10/24/19 17:00 99 10/24/19 16:00 96 10/24/19 15:36 98 10/24/19 15:30 10/24/19 15:00 98 10/24/19 14:00 99 10/24/19 13:35 98 10/24/19 13:10 10/24/19 13:00 98 - Physical Examination General: Other (intubated, on the vent) Cardiac: Positive: Reg Rate and Rhythm Abdomen: Positive: Other (abdominal wound vac is in place) - Labs and Meds Cardiac Enzymes 10/25/19 Range/Units 04:19 AST 16 (5-40) units/L Lipids 10/24/19 10/25/19 Range/Units 13:00 04:19 Triglycerides 216 H 230 H (2-149) mg/dL CBC 10/25/19 Range/Units 04:19 WBC 10.2 (4.5-11.0) K/mm3 RBC 2.69 L (3.65-5.03) M/mm3 Hgb 8.1 L (11.8-15.2) gm/dl Hct 23.9 L (35.5-45.6) % Plt Count 261 (140-440) K/mm3 Comprehensive Metabolic Panel 10/25/19 Range/Units 04:19 Sodium 147 H (137-145) mmol/L Potassium 3.9 (3.6-5.0) mmol/L Chloride 102.1 (98-107) mmol/L Carbon Dioxide 33 H (22-30) mmol/L BUN 18 (9-20) mg/dL Creatinine 0.5 L (0.8-1.5) mg/dL Glucose 111 H (75-100) mg/dL Calcium 8.5 (8.4-10.2) mg/dL AST 16 (5-40) units/L ALT 10 (7-56) units/L Alkaline Phosphatase 100 (35-129) units/L Total Protein 5.7 L D (6.3-8.2) g/dL Albumin 2.5 L (3.9-5) g/dL
[2019-10-25] MEDS: METOPROLOL TARTRATE 50 MG TAB PO SCH ×2 (13:44→21:48)
[2019-10-25] MEDS: HYDROmorphone 2 MG/1 ML INJ IV PRN ×2 (13:44→20:07)
[2019-10-25] MEDS: ACETAMINOPHEN 325 MG/10.15 ML ORAL LIQD UNIT DOSE FEEDTUBE PRN (13:55)
--- NOTE | 2019-10-25 16:01 | Progress Note ---
Assessment and Plan Assessment and plan: Dehiscence of closure of fascia * Went to OR for ex lap with closure of abdominal wall and wound vac placement (10/05) * Continued to decline with possible Air vs fluid, 10/10/19 IR went in and placed two drains, Noted to have possible fecal material * Returned to the OR 10/13/19 due to concern for intra-abdominal infection and was found to have with heavy contamination of abdomen patent had disruption of bowel anastomosis, abdominal washout, abthera placement and colon stapled transection and left bowel enterotomy from anastomosis completely open * Returned to OR on 10/16/19 for abdominal washout, Partial Omentectomy, Partial Colectomy, Colostomy Creation and AbThera Placement * Abdominal washout and closure - 10/22 * cont wound care Severe sepsis secondary to bowel leak at anastomosis site/PNA -cont off abx per ID -blood cultures neg Acute Respiratory failure with hypoxia -on MV support -failed weaning trial on 10/19/19 -[employer] following Left lower lobe pneumonia -Continue IV antibiotic -CTA chest showed left lower lobe consolidation with pleural effusion GUILLERMO on CRF -probably ATN due to sepsis -Improving, will monitor -SPEP and UPEP pending -No hydronephrosis on CT -[place] in place, monitor I/O's Severe Metabolic acidosis -Improved Acute Toxic Metabolic Encephalopathy/Delirium Tremens -Started on CIWA protocol due to hx of ETOH abuse, 6packs a day -Head CT scan negative for acute findings Acute blood loss anemia -H/H stable -Continue to monitor H&H and transfuse for hb<7 SVT, Atrial fib/flutter with RVR -treated with adenosine x1 -off amiodarone and cardizem drip. On oral amiodarone and IV Lopressor. -HR currently controlled -Cardiology following Hypotension -Off esmolol drip -s/p IV fluid boluses, BP stable Hypophosphatemia -will monitor level Hx of Hypertension -Stable Hyperlipidemia -stable Atypical chest pain -probably secondary to pneumonitis -troponin levels neg Hx of [place]/CAD -s/p PCI of the circumflex and second vessel POBA of the distal LAD occlusion. Left ventricle fraction of 45-50%. Morbid obesity with BMI of 45.4 -Lifestyle modification recommended COPD -Stable -cont neb tx Moderate Protein calorie malnutrition secondary to surgery -On TPN -Nutrition following Tobacco abuse -Cessation recommended Morbid obesity with BMI of 45.4 -Lifestyle modification recommended DVT and GI ppx: Lovenox/PPI Disp: Very poor prognosis. d/c per clinical course The high probability of a clinically significant, sudden or life threatening deterioration of the [respiratory] system(s) required my full and direct attention, intervention and personal management. The aggregate critical care time was [31] minutes. This time is in addition to time spent performing reported procedures but includes the following: [x] Data Review and interpretation [x] Patient assessment and monitoring of vital signs [x] Documentation [x] Medication orders and management History Interval history: No new issues Hospitalist Physical - Constitutional Vitals: Temp Pulse Resp BP Pulse Ox 100.8 F H 90 20 154/70 93 10/25/19 12:00 10/25/19 15:15 10/25/19 15:15 10/25/19 14:00 10/25/19 14:00 General appearance: Present: mild distress, well-nourished - EENT Eyes: Present: PERRL, EOM intact ENT: hearing intact, clear oral mucosa, dentition normal - Neck Neck: Present: supple, normal ROM - Respiratory Respiratory effort: normal Respiratory: bilateral: CTA - Cardiovascular Rhythm: regular Heart Sounds: Present: S1 & S2. Absent: gallop, rub - Extremities Extremities: no ischemia, No edema, Full ROM - Abdominal General gastrointestinal: soft, non-tender, non-distended, normal bowel sounds - Integumentary Integumentary: Present: clear, warm, dry - Neurologic Neurologic: CNII-XII intact, moves all extremities Results - Labs CBC & Chem 7: 10/25/19 04:19 10/25/19 04:19 Labs: Laboratory Last Values WBC 10.2 K/mm3 (4.5-11.0) 10/25/19 04:19 RBC 2.69 M/mm3 (3.65-5.03) L 10/25/19 04:19 Hgb 8.1 gm/dl (11.8-15.2) L 10/25/19 04:19 Hct 23.9 % (35.5-45.6) L 10/25/19 04:19 MCV 89 fl (84-94) 10/25/19 04:19 MCH 30 pg (28-32) 10/25/19 04:19 MCHC 34 % (32-34) 10/25/19 04:19 RDW 17.3 % (13.2-15.2) H 10/25/19 04:19 Plt Count 261 K/mm3 (140-440) 10/25/19 04:19 Lymph % (Auto) 7.0 % (13.4-35.0) L 10/24/19 05:05 Ralls % (Auto) 9.5 % (0.0-7.3) H 10/24/19 05:05 Eos % (Auto) 0.6 % (0.0-4.3) 10/24/19 05:05 Baso % (Auto) 0.2 % (0.0-1.8) 10/24/19 05:05 Lymph # 0.9 K/mm3 (1.2-5.4) L 10/24/19 05:05 Ralls # 1.2 K/mm3 (0.0-0.8) H 10/24/19 05:05 Eos # 0.1 K/mm3 (0.0-0.4) 10/24/19 05:05 Baso # 0.0 K/mm3 (0.0-0.1) 10/24/19 05:05 Add Manual Diff Complete 10/16/19 09:20 Total Counted 100 10/16/19 09:20 Seg Neutrophils % 82.7 % (40.0-70.0) H 10/24/19 05:05 Seg Neuts % (Manual) 79.0 % (40.0-70.0) H 10/16/19 09:20 Band Neutrophils % 12.0 % 10/16/19 09:20 Lymphocytes % (Manual) 4.0 % (13.4-35.0) L 10/16/19 09:20 Reactive Lymphs % (Man) 0 % 10/16/19 09:20 Monocytes % (Manual) 2.0 % (0.0-7.3) 10/16/19 09:20 Eosinophils % (Manual) 0 % (0.0-4.3) 10/16/19 09:20 Basophils % (Manual) 0 % (0.0-1.8) 10/16/19 09:20 Metamyelocytes % 2.0 % 10/16/19 09:20 Myelocytes % 1.0 % 10/16/19 09:20 Promyelocytes % 0 % 10/16/19 09:20 Blast Cells % 0 % 10/16/19 09:20 Nucleated RBC % Not Reportable 10/16/19 09:20 Seg Neutrophils # 10.7 K/mm3 (1.8-7.7) H 10/24/19 05:05 Seg Neutrophils # Man 11.5 K/mm3 (1.8-7.7) H 10/16/19 09:20 Band Neutrophils # 1.8 K/mm3 10/16/19 09:20 Lymphocytes # (Manual) 0.6 K/mm3 (1.2-5.4) L 10/16/19 09:20 Abs React Lymphs (Man) 0.0 K/mm3 10/16/19 09:20 Monocytes # (Manual) 0.3 K/mm3 (0.0-0.8) 10/16/19 09:20 Eosinophils # (Manual) 0.0 K/mm3 (0.0-0.4) 10/16/19 09:20 Basophils # (Manual) 0.0 K/mm3 (0.0-0.1) 10/16/19 09:20 Metamyelocytes # 0.3 K/mm3 10/16/19 09:20 Myelocytes # 0.1 K/mm3 10/16/19 09:20 Promyelocytes # 0.0 K/mm3 10/16/19 09:20 Blast Cells # 0.0 K/mm3 10/16/19 09:20 WBC Morphology Not Reportable 10/16/19 09:20 Hypersegmented Neuts Not Reportable 10/16/19 09:20 Hyposegmented Neuts Not Reportable 10/16/19 09:20 Hypogranular Neuts Not Reportable 10/16/19 09:20 Smudge Cells Not Reportable 10/16/19 09:20 Toxic Granulation Not Reportable 10/16/19 09:20 Toxic Vacuolation Not Reportable 10/16/19 09:20 Dohle Bodies Not Reportable 10/16/19 09:20 Pelger-Huet Anomaly Not Reportable 10/16/19 09:20 Andres Rods Not Reportable 10/16/19 09:20 Platelet Estimate Consistent w auto 10/16/19 09:20 Clumped Platelets Not Reportable 10/16/19 09:20 Plt Clumps, EDTA Not Reportable 10/16/19 09:20 Large Platelets Not Reportable 10/16/19 09:20 Giant Platelets Not Reportable 10/16/19 09:20 Platelet Satelliting Not Reportable 10/16/19 09:20 Plt Morphology Comment Not Reportable 10/16/19 09:20 RBC Morphology Not Reportable 10/16/19 09:20 Dimorphic RBCs Not Reportable 10/16/19 09:20 Polychromasia Few 10/16/19 09:20 Hypochromasia Few 10/16/19 09:20 Poikilocytosis Not Reportable 10/16/19 09:20 Anisocytosis Not Reportable 10/16/19 09:20 Microcytosis Not Reportable 10/16/19 09:20 Macrocytosis Not Reportable 10/16/19 09:20 Spherocytes Not Reportable 10/16/19 09:20 Pappenheimer Bodies Not Reportable 10/16/19 09:20 Sickle Cells Not Reportable 10/16/19 09:20 Target Cells Few 10/16/19 09:20 Tear Drop Cells Not Reportable 10/16/19 09:20 Ovalocytes Not Reportable 10/16/19 09:20 Helmet Cells Not Reportable 10/16/19 09:20 [place] Bodies Not Reportable 10/16/19 09:20 [place] Rings Not Reportable 10/16/19 09:20 Bishnu Cells Not Reportable 10/16/19 09:20 Bite Cells Not Reportable 10/16/19 09:20 Crenated Cell Not Reportable 10/16/19 09:20 Elliptocytes Not Reportable 10/16/19 09:20 Acanthocytes (Spur) Not Reportable 10/16/19 09:20 Rouleaux Not Reportable 10/16/19 09:20 Hemoglobin C Crystals Not Reportable 10/16/19 09:20 Schistocytes Not Reportable 10/16/19 09:20 Malaria parasites Not Reportable 10/16/19 09:20 Toni Bodies Not Reportable 10/16/19 09:20 Hem Pathologist Commnt No 10/16/19 09:20 POC ABG pH 7.310 (7.35-7.45) L 10/17/19 05:41 ABG pH 7.390 pH Units (7.350-7.450) 10/23/19 04:47 POC ABG pCO2 52.8 (35-45) H 10/17/19 05:41 ABG pCO2 48.4 mm Hg 10/23/19 04:47 POC ABG pO2 70 (80-105) L 10/17/19 05:41 ABG pO2 68.9 mm Hg (80.0-90.0) L 10/23/19 04:47 POC ABG HCO3 26.6 (22-26 mml/L) 10/17/19 05:41 ABG HCO3 28.7 mmol/L (20.0-26.0) H 10/23/19 04:47 POC ABG Total CO2 28 (23-27mmol/L) 10/17/19 05:41 POC ABG O2 Sat 92 10/17/19 05:41 ABG O2 Saturation 96.6 % (95.0-99.0) 10/23/19 04:47 ABG O2 Content 8.8 (0.0-44) 10/23/19 04:47 POC ABG Base Excess 0 ((-2) - (+3)mmol/L) 10/17/19 05:41 ABG Base Excess 3.4 mmol/L (-2.0-3.0) H 10/23/19 04:47 ABG Hemoglobin 6.6 gm/dl (14.0-18.0) L 10/23/19 04:47 ABG Carboxyhemoglobin 2.1 % (0.0-5.0) 10/23/19 04:47 ABG Methemoglobin 0.5 % (0.0-1.5) 10/23/19 04:47 Oxyhemoglobin 94.1 % (95.0-99.0) L 10/23/19 04:47 FiO2 40 % 10/23/19 04:47 Sodium 147 mmol/L (137-145) H 10/25/19 04:19 Potassium 3.9 mmol/L (3.6-5.0) 10/25/19 04:19 Chloride 102.1 mmol/L (98-107) 10/25/19 04:19 Carbon Dioxide 33 mmol/L (22-30) H 10/25/19 04:19 Anion Gap 16 mmol/L 10/25/19 04:19 BUN 18 mg/dL (9-20) 10/25/19 04:19 Creatinine 0.5 mg/dL (0.8-1.5) L 10/25/19 04:19 Estimated GFR > 60 ml/min 10/25/19 04:19 BUN/Creatinine Ratio 36 % 10/25/19 04:19 Glucose 111 mg/dL (75-100) H 10/25/19 04:19 POC Glucose 114 (70-105) H 10/25/19 12:20 Hemoglobin A1c 5.7 % (4-6) 10/06/19 05:36 Lactic Acid 1.10 mmol/L (0.7-2.0) 10/13/19 04:20 Calcium 8.5 mg/dL (8.4-10.2) 10/25/19 04:19 Ionized Calcium 5.2 mg/dL (4.8-5.6) 10/18/19 07:41 Phosphorus 3.50 mg/dL (2.5-4.5) 10/25/19 04:19 Magnesium 1.80 mg/dL (1.7-2.3) 10/25/19 04:19 Total Bilirubin 1.20 mg/dL (0.1-1.2) 10/25/19 04:19 Direct Bilirubin 0.7 mg/dL (0-0.2) H 10/23/19 10:44 Indirect Bilirubin 0.1 mg/dL 10/23/19 10:44 AST 16 units/L (5-40) 10/25/19 04:19 ALT 10 units/L (7-56) 10/25/19 04:19 Alkaline Phosphatase 100 units/L (35-129) 10/25/19 04:19 Ammonia 49.0 umol/L (25-60) 10/13/19 04:20 Troponin T < 0.010 ng/mL (0.00-0.029) 10/09/19 17:23 C-Reactive Protein 30.60 mg/dL (0.00-1.30) H 10/15/19 04:32 Serum Total Protein 5.2 g/dL (6.1-8.1) L 10/11/19 09:00 Total Protein 5.7 g/dL (6.3-8.2) L D 10/25/19 04:19 Albumin 2.5 g/dL (3.9-5) L 10/25/19 04:19 Albumin/Globulin Ratio 0.8 % 10/25/19 04:19 Prealbumin 0.030 g/L (0.200-0.400) L 10/15/19 04:32 [id number]-[id number] See scanned result 10/11/19 Unknown Sfrby-4-[id number] See scanned result 10/11/19 Unknown Beta Globulins See scanned result 10/11/19 Unknown Gamma Globulins See scanned result 10/11/19 Unknown Abnorm Protein Band 1 see below 10/11/19 09:00 PEP Interpretation See scanned result 10/11/19 Unknown Triglycerides 230 mg/dL (2-149) H 10/25/19 04:19 Urine Color Obdulia (Yellow) 10/11/19 06:23 Urine Turbidity Cloudy (Clear) 10/11/19 06:23 Urine pH 5.0 (5.0-7.0) 10/11/19 06:23 Ur Specific [place] 1.018 (1.003-1.030) 10/11/19 06:23 Urine Protein 30 mg/dl mg/dL (Negative) 10/11/19 06:23 Urine Glucose (UA) Neg mg/dL (Negative) 10/11/19 06:23 Urine Ketones Neg mg/dL (Negative) 10/11/19 06:23 Urine Blood Mod (Negative) 10/11/19 06:23 Urine Nitrite Neg (Negative) 10/11/19 06:23 Urine Bilirubin Neg (Negative) 10/11/19 06:23 Urine Urobilinogen < 2.0 mg/dL (<2.0) 10/11/19 06:23 Ur Leukocyte Esterase Neg (Negative) 10/11/19 06:23 Urine WBC (Auto) 3.0 /HPF (0.0-6.0) 10/11/19 06:23 Urine RBC (Auto) 3.0 /HPF (0.0-6.0) 10/11/19 06:23 Urine Bacteria (Auto) 1+ /HPF (Negative) 10/11/19 06:23 Urine Eosinophils None seen (None Seen) 10/11/19 06:23 Ur Random Creatinine See scanned result 10/11/19 Unknown U Random Total Protein See scanned result 10/11/19 Unknown Urine Creatinine 116.8 mg/dL (0.1-20.0) H 10/11/19 06:23 Urine Creatinine 118.2 mg/dL (0.1-20.0) H 10/11/19 06:23 Protein/Creatinin Ratio See scanned result 10/11/19 Unknown Urine Sodium 14 mmol/L 10/11/19 06:23 Urine Total Protein 104 mg/dL (5-11.8) H 10/11/19 06:23 Urine Total Protein 105 mg/dL (5-11.8) H 10/11/19 06:23 U Abnormal Prot Band 1 See scanned result 10/11/19 Unknown U Abnormal Prot Band 2 See scanned result 10/11/19 Unknown U Abnormal Prot Band 3 See scanned result 10/11/19 Unknown Digoxin 0.7 ng/mL (0.9-2.0) L 10/19/19 04:21 Blood Type A POSITIVE 10/23/19 11:50 Antibody Screen Negative 10/23/19 11:50 Crossmatch See Detail 10/23/19 11:50 Active Medications - Current Medications Current Medications: Generic Name Dose Route Start Last Admin Trade Name Freq PRN Reason Stop Dose Admin Acetaminophen 650 mg 10/25/19 13:00 10/25/19 13:55 Tylenol FEEDTUBE 650 mg Q4H PRN Administration Fever >100.5 Albuterol 2.5 mg 10/05/19 21:36 Proventil IH Q4HRT PRN Shortness Of Breath Albuterol/Ipratropium 1 ampul 10/06/19 02:00 10/25/19 15:15 Duoneb *Not For Prn Use* IH 1 ampul Q6HRT VERÓNICA Administration Amiodarone HCl 200 mg 10/23/19 13:00 10/25/19 10:03 Cordarone PO 200 mg QDAY VERÓNICA Administration Lipase/Protease/Amylase 1 each 10/20/19 10:37 Pancremeeta Moreno 10,500 Unit FEEDTUBE PRN PRN For Clogged Feeding Tube Arformoterol Tartrate 15 mcg 10/06/19 08:30 10/25/19 08:45 Brovana Nebu IH 15 mcg Q12HRT VERÓNICA Administration Budesonide 0.5 mg 10/07/19 12:20 10/25/19 08:45 Pulmicort IH 0.5 mg Q12HRT VERÓNICA Administration Enoxaparin Sodium 40 mg 10/22/19 22:00 10/24/19 21:26 Enoxaparin SUB-Q 40 mg QDAY@2200 [facility] Administration Fentanyl 50 mcg 10/25/19 12:35 Sublimaze IV Q2H PRN PAIN SCORE </=5 Hydromorphone HCl 2 mg 10/25/19 12:35 10/25/19 13:44 Dilaudid IV 2 mg Q4H PRN Administration PAIN SCORE >/=6 Amino Acids/Electrolytes/Dextrose 2,400 mls @ 100 mls/hr 10/24/19 20:00 10/24/19 20:26 Tpn Adult IV 10/25/19 19:59 100 mls/hr DAILY@1999 [facility] Administration Protocol Amino Acids/Electrolytes/Dextrose 2,400 mls @ 100 mls/hr 10/25/19 20:00 Tpn Adult IV 10/26/19 19:59 DAILY@1999 [facility] Protocol Insulin Human Lispro 0 unit 10/14/19 12:00 10/25/19 13:41 Humalog SUB-Q Not Given Q6HR [facility] Protocol Metoprolol Tartrate 2.5 mg 10/15/19 15:34 10/18/19 00:05 Metoprolol IV 2.5 mg Q4HR PRN Administration HR >130 Metoprolol Tartrate 50 mg 10/25/19 14:00 10/25/19 13:44 Metoprolol PO 50 mg Q8HR VERÓNICA Administration Multi-Ingred Cream/Lotion/Oil/Oint 1 applic 10/14/19 02:19 Artificial Tears Ophth Oint OU Q4HR PRN Dry Eye(s) Ondansetron HCl 4 mg 10/05/19 21:22 10/11/19 18:20 Zofran IV 4 mg Q3H PRN Administration Nausea And Vomiting Pantoprazole Sodium 40 mg 10/15/19 10:00 10/25/19 10:03 Protonix IV 40 mg QDAY [facility] Administration Simple Syrup 15 ml 10/20/19 10:37 Simple Syrup FEEDTUBE PRN PRN Hypoglycemia Simple Syrup 30 ml 10/20/19 10:37 Simple Syrup FEEDTUBE PRN PRN Hypoglycemia Sodium Bicarbonate 325 mg 10/20/19 10:37 Sodium Bicarbonate FEEDTUBE PRN PRN For Clogged Feeding Tube Sodium Chloride 10 ml 10/05/19 21:22 10/19/19 09:29 Sodium Chloride Flush Syringe 10 Ml IV 10 ml PRN PRN Administration LINE FLUSH Nutrition/Malnutrition Assess - Dietary Evaluation Nutrition/Malnutrition Findings: Nutrition Notes Start: 10/08/19 11:36 Freq: Status: Active Protocol: Document 10/25/19 09:50 CC (Rec: 10/25/19 09:57 CC [id number]) Co-Sign 10/25/19 09:50 LP Nutrition Notes Initial or Follow up Reassessment Current Diagnosis Acute Kidney Injury,COPD, Hypertension Other Pertinent Diagnosis intra-abdominal infection, disruption of bowel anastomosis, LE edema Current Diet CPN at 100 ml/hr + Vital AF 1. 2 at 10 ml/hr Labs/Tests Na 147 Creat 0.5 Pertinent Medications Propofol (111kcal) Height 6 ft Weight 143 kg [place] Body Weight (kg) 80.90 BMI 42.7 Weight change and time frame Wt change noted. Likely due to fluids. Weight Status Morbidly Obese Subjective/Other Information CPN day 12. Vital AF running at 10 ml/hr at time of visit. Per MD report TPN hopefully will be stopped if pt volume overload improves. Percent of energy/protein needs met: 69%/74% (including Propofol) Burn Absent Trauma Absent GI Symptoms None Current % PO Negligible Minimum of two criteria No Fluid Accumulation Mild (non-severe) #2 Nutrition Diagnosis Inadequate oral intake Diagnosis Progress(for reassessment Continues documentation) #1 Nutrition Diagnosis Increased nutrient needs ( specify in comment below) Diagnosis Progress(for reassessment Continues documentation) Is patient on ventilator? Yes Is Patient Ambulatory and/or Out of Bed No REE-([facility]-confined to bed) 2761.260 Kcal/Kg value to use for calculation 14 Approximate Energy Requirements Using 2002 kcal/Kg Calculation Used for Recommendations Kcal/kg Additional Notes Protein: 202g (up to 2.5 g/kg IBW 80.9 kg) Pay attention to renal issues Fluid: 1 ml/kcal or per MD Nutrition Intervention Change Diet Order: Continue CPN and trickle feeds Vital 1.2 at 10ml/hr Flush 50ml q6h Nutrition Support: CPN at 100ml/hr: MVI, MTE osmolarity 1161 Kcal 1,780 Protein (gm) 150 Carbohydrates (gm) 200 Fat (gm) 50 Fluid (mL) 2,400 Fiber (gm) 0 Goal #1 Meet energy and protein needs as best as possible via CPN and TF Goal #2 TF advancement Anticipated Discharge Needs: unable to determine at this time Follow-Up By: 10/26/19 Additional Comments Labs in AM: BMP, Mg, Phos Follow for TF tolerance, advancement
[2019-10-25] MEDS ORDERED: TOTAL PARENTERAL NUTRITION 2,400 ML IV SCH (20:00)
[2019-10-25] MEDS: ENOXAPARIN 40 MG/0.4 ML INJ SUB-Q SCH (21:49)
[2019-10-25] MEDS: HALOPERIDOL LACTATE 5 MG/1 ML INJ IV PRN (22:00)
[2019-10-26] MEDS: HYDROmorphone 2 MG/1 ML INJ IV PRN ×2 (00:36→19:50)
[2019-10-26] MEDS: INSULIN LISPRO 100 UNIT/ML SUB-Q SCH ×5 (00:42→23:45)
[2019-10-26] MEDS: IPRATROPIUM/ALBUTEROL SULFATE 3 ML AMPUL.NEB IH SCH ×4 (02:03→19:54)
[2019-10-26] MEDS: METOPROLOL TARTRATE 50 MG TAB PO SCH ×3 (06:00→22:59)
[2019-10-26 06:04] LABS: BUN/Creatinine Ratio TNR; Blood Urea Nitrogen TNR mg/dL (9-20); Calcium TNR mg/dL (8.4-10.2)
[2019-10-26 06:05] LABS: Hemolysis Index TNR
[2019-10-26] MEDS: BUDESONIDE 0.5 MG/2 ML NEBU IH SCH ×2 (08:14→19:54)
[2019-10-26] MEDS: ARFORMOTEROL 15 MCG/2 ML NEBU IH SCH ×2 (08:15→19:54)
--- NOTE | 2019-10-26 08:34 | Progress Note ---
Assessment and Plan - Patient Problems (1) Dehiscence of closure of fascia, superficial or muscular Current Visit: No Status: Acute Qualifiers: Encounter type: initial encounter Qualified Code(s): T81.32XA - Disruption of internal operation (surgical) wound, not elsewhere classified, initial encounter Plan to address problem: Pt stable. s/p ex lap with closure of abdominal wall and wound vac placement (10/05) - POD#19; s/p Re-exploration, washout, transection of colon, Abthera placement - 10/13 - POD#11; s/p abd washout, partial omentectomy, partial colectomy with colostomy - 10/16 POD#9. s/p abd washout, feeding tube placement, AbThera placement - 10/19 - POD#6; Abdominal washout and closure - 10/22 - POD#4 Overall, patient looks better today. BP better. Pt is less swollen. Extuabted yesterday. Drains have minimal output and no odor (colon leak would have odor of stool). Rec: 1) Neuro - Awake and appropriate. 2) CV - BP improved. 3) Resp - Extubated. On HFNC. Need to work on pulmonary toilet. 4) GI - Ostomy looks good. No function yet. Sump drains and wound vac not consistent with previous fluid appearance when he has leaked. Sump drains are working properly. No obvious leak is seen today. The fluid that we are currently draining is very thin, minimal in amount, and it does not have an odor. We will continue to monitor closely. Ok to continue trickle feeds via the Jejunal port. Would not advance beyond trickle feeds (10cc/hr) at this time. Gastric output is starting to lighten up. We may have resumption of normal function soon and then can advance tube feeds to goal. When stable from a respiratory standpoint, ok to start clear liquid diet. Would keep G-tube on suction as precaution until we start to see more function from the ostomy. 5) - BUN/Cr pending today 6) ID - Abx per ID. Enterococcus on cultures. + Fevers o/n. 7) Nutrition - TPN 8) DVT prophylaxis - SCDs. Lovenox 9) Family -spoke with this AM. 10) PT - will need rehab. Please call with questions. Subjective Date of service: 10/26/19 Patient Reports: Positive: still having pain (primarily in the midline), shortness of breath (mild), fever, other (hungry. tired. ). Negative: nausea Objective Vital Signs - 12hr 10/25/19 10/25/19 10/25/19 21:00 21:48 22:00 Temperature Pulse Rate 92 H 93 H 90 Pulse Rate [ Anterior Bilateral Throughout] Pulse Rate [ From Monitor] Respiratory 20 21 Rate Respiratory Rate [Anterior Bilateral Throughout] Blood Pressure 153/68 145/66 150/62 O2 Sat by Pulse 94 94 Oximetry 10/25/19 10/25/19 10/25/19 22:43 23:00 23:21 Temperature 99.2 F Pulse Rate 87 Pulse Rate [ Anterior Bilateral Throughout] Pulse Rate [ 93 H From Monitor] Respiratory 23 29 H Rate Respiratory Rate [Anterior Bilateral Throughout] Blood Pressure 167/69 O2 Sat by Pulse 93 Oximetry 10/26/19 10/26/19 10/26/19 00:00 01:00 02:00 Temperature Pulse Rate 88 94 H 93 H Pulse Rate [ 93 H Anterior Bilateral Throughout] Pulse Rate [ 95 H From Monitor] Respiratory 33 H 32 H 28 H Rate Respiratory 26 H Rate [Anterior Bilateral Throughout] Blood Pressure 165/68 173/80 164/72 O2 Sat by Pulse 94 82 L 93 Oximetry 10/26/19 10/26/19 10/26/19 03:00 03:13 04:00 Temperature 102 F H Pulse Rate 94 H 89 Pulse Rate [ Anterior Bilateral Throughout] Pulse Rate [ 82 From Monitor] Respiratory 28 H 25 H Rate Respiratory Rate [Anterior Bilateral Throughout] Blood Pressure 152/80 111/77 O2 Sat by Pulse 83 L 95 Oximetry 10/26/19 10/26/19 10/26/19 05:00 06:00 07:00 Temperature Pulse Rate 89 91 H 94 H Pulse Rate [ Anterior Bilateral Throughout] Pulse Rate [ From Monitor] Respiratory 33 H 33 H 39 H Rate Respiratory Rate [Anterior Bilateral Throughout] Blood Pressure 129/69 174/74 166/70 O2 Sat by Pulse 95 94 95 Oximetry 10/26/19 10/26/19 07:58 08:00 Temperature Pulse Rate Pulse Rate [ 91 H Anterior Bilateral Throughout] Pulse Rate [ From Monitor] Respiratory Rate Respiratory 34 H Rate [Anterior Bilateral Throughout] Blood Pressure O2 Sat by Pulse 95 Oximetry - General physical appearance no distress, no pain, obese, other (mild increased work of breathing. Appropriate conversation.) - Respiratory other (slightly fast, shallow breathing) - Abdomen soft, tender (only in midline. Not in flanks. ), not guarding, not rigid, other (wound vac in place with serosang drainage. Sump drains were flushed and continue to work well. Drainage is unchanged in appearance. ) - Integumentary other (some skin breakdown in right flank) - Psychiatric oriented to person, oriented to place - Labs 10/25/19 04:19 10/26/19 05:04 Diabetes panel 10/26/19 Range/Units 05:04 Sodium TNR Potassium TNR Chloride TNR Carbon Dioxide TNR BUN TNR Creatinine TNR Glucose TNR Calcium TNR Triglycerides TNR Calcium panel 10/26/19 Range/Units 05:04 Calcium TNR Phosphorus TNR Pituitary panel 10/26/19 Range/Units 05:04 Sodium TNR Potassium TNR Chloride TNR Carbon Dioxide TNR BUN TNR Creatinine TNR Glucose TNR Calcium TNR Adrenal panel 10/26/19 Range/Units 05:04 Sodium TNR Potassium TNR Chloride TNR Carbon Dioxide TNR BUN TNR Creatinine TNR Glucose TNR Calcium TNR
[2019-10-26 09:04] LABS: Alanine Aminotransferase 13 units/L (7-56); Albumin 2.4 g/dL (3.9-5); BUN/Creatinine Ratio 34; Blood Urea Nitrogen 17 mg/dL (9-20); Calcium 8.3 mg/dL (8.4-10.2); Hemolysis Index 2
[2019-10-26] MEDS: PANTOPRAZOLE 40 MG INJ IV SCH (10:00)
[2019-10-26] MEDS: AMIODARONE 200 MG TAB PO SCH (10:00)
[2019-10-26] MEDS: HALOPERIDOL LACTATE 5 MG/1 ML INJ IV PRN (10:51)
--- NOTE | 2019-10-26 11:29 | Progress Note ---
Assessment and Plan Atrial fibrillation/flutter, spontaneously reverted to sinus rhythm treated with adenosine x1 on 10/15 on amiodarone and metoprolol for suppression Sepsis Severe abdominal pain s/p exploratory laparotomy, abdominal washout, closure of abdominal fascia with wound vac placement on 10/05 s/p abdominal washout with partial colectomy and left colostomy on 10/16 s/p abdominal washout and closure on 10/22 Recent colon resection for bowel perforation following a colonoscopy Atypical chest pain troponins are normal Hx of CO/CAD [facility] 12/2017: PCI of the circumflex and second vessel POBA of the distal LAD occlusion. Left ventricle fraction 45-50%. Tobacco abuse COPD Hypertension Hyperlipidemia Continue medical management for atrial fibrillation suppression. Subjective Date of service: 10/26/19 Principal diagnosis: acute renal failure Interval history: Patient is alert and oriented; extubated on yesterday. No distress noted. Stable sinus rhythm on telemetry. Objective Vital Signs Temp Pulse Pulse Pulse Resp Resp BP 10/26/19 11:00 91 H 42 H 173/81 10/26/19 10:00 91 H 32 H 168/78 10/26/19 09:00 94 H 39 H 154/81 10/26/19 08:00 98.9 F 91 H 91 H 92 H 41 H 34 H 185/54 10/26/19 07:58 10/26/19 07:00 94 H 39 H 166/70 10/26/19 06:00 91 H 33 H 174/74 10/26/19 05:00 89 33 H 129/69 10/26/19 04:00 89 82 25 H 111/77 10/26/19 03:13 102 F H 10/26/19 03:00 94 H 28 H 152/80 10/26/19 02:00 93 H 93 H 28 H 26 H 164/72 10/26/19 01:00 94 H 32 H 173/80 10/26/19 00:00 88 95 H 33 H 165/68 10/25/19 23:21 99.2 F 10/25/19 23:00 87 29 H 167/69 10/25/19 22:43 93 H 23 10/25/19 22:00 90 21 150/62 10/25/19 21:48 93 H 145/66 10/25/19 21:00 92 H 20 153/68 10/25/19 20:00 87 90 19 20 171/68 10/25/19 19:49 98.9 F 10/25/19 19:00 81 16 165/80 10/25/19 18:00 80 24 156/70 10/25/19 17:00 82 22 134/62 10/25/19 16:00 99.9 F H 82 86 15 134/62 10/25/19 15:15 90 20 10/25/19 15:00 85 16 130/57 10/25/19 14:00 96 H 25 H 154/70 10/25/19 13:44 97 H 166/82 10/25/19 13:00 92 H 24 141/61 10/25/19 12:05 10/25/19 12:00 100.8 F H 90 92 H 22 117/57 Pulse Ox 10/26/19 11:00 98 10/26/19 10:00 95 10/26/19 09:00 95 10/26/19 08:00 96 10/26/19 07:58 95 10/26/19 07:00 95 10/26/19 06:00 94 10/26/19 05:00 95 10/26/19 04:00 95 10/26/19 03:13 10/26/19 03:00 83 L 10/26/19 02:00 93 10/26/19 01:00 82 L 10/26/19 00:00 94 10/25/19 23:21 10/25/19 23:00 93 10/25/19 22:43 10/25/19 22:00 94 10/25/19 21:48 10/25/19 21:00 94 10/25/19 20:00 92 10/25/19 19:49 10/25/19 19:00 10/25/19 18:00 97 10/25/19 17:00 94 10/25/19 16:00 95 10/25/19 15:15 10/25/19 15:00 96 10/25/19 14:00 93 10/25/19 13:44 10/25/19 13:00 95 10/25/19 12:05 99 10/25/19 12:00 99 - Physical Examination General: No Apparent Distress HEENT: Positive: PERRL Neck: Positive: trachea midline Cardiac: Positive: Reg Rate and Rhythm Lungs: Positive: Decreased Breath Sounds Neuro: Positive: Weakness Abdomen: Positive: Other (abdominal wound vac is in place) Extremities: Present: +1 Edema - Labs and Meds Cardiac Enzymes 10/26/19 Range/Units 06:15 AST 23 (5-40) units/L Lipids 10/26/19 10/26/19 Range/Units 05:04 06:15 Triglycerides TNR 185 H Comprehensive Metabolic Panel 10/26/19 10/26/19 Range/Units 05:04 06:15 Sodium TNR 143 Potassium TNR 3.5 L Chloride TNR 100.3 Carbon Dioxide TNR 27 BUN TNR 17 Creatinine TNR 0.5 L Glucose TNR 112 H Calcium TNR 8.3 L AST 23 (5-40) units/L ALT 13 (7-56) units/L Alkaline Phosphatase 148 H (35-129) units/L Total Protein 5.9 L (6.3-8.2) g/dL Albumin 2.4 L (3.9-5) g/dL
[2019-10-26] MEDS ORDERED: FUROSEMIDE 40 MG/4 ML INJ IV ONE ×2 (12:00→18:00)
--- NOTE | 2019-10-26 12:37 | Progress Note ---
Assessment and Plan 54 y/o male with anastomic leak 10/26: Patient stable overall. Not ready for floor. Would be ok with step down if beds are needed. If spikes temp again will order blood cultures x2, urine culture, UA and repeat CXR. Gave an additional 40 of lasix this am. Will give more potassium replacement. Continue trickle feeds for now. Will continue PO meds and restart home dose of citalopram. Wean FiO2 and flow for sats >88%. Mildly hypertensive but this was secondary to agitation. Normalizing now. 10/25: Will extubate today. Will use HFNC if distress or hypoxemia is noted. Not a good candidate for bipap given his recent abdominal issues. Spoke with who is now at bedside and surgery. Will continue to attempt to achieve net negative state daily. Hold on further albumin administration. Hypernatremia is iatrogenic from lasix administration Worse case scenario, will re-intubate with anesthesia. 10/24: Responding well to lasix and protein therapy. Will give 2 more doses of lasix today. Consider one for tonight as well. Last albumin today at 1800. CXR is stable, still with layering bilateral pleural effusions. Will reassess again tomorrow. Reviewed all other biometrics consultant notes. Spoke with sisters at bedside, updated and spoke with surgery. 10/23: Long discussion with surgery and via phone. Anasarca is likely from decreased oncotic pressure and immobility of several days now that abdomen is finally closed. Now fluid is essentially leaking into the interstitium now that the abdomen is shut and there is increased intra-abdominal pressure. Total Protein is 4.5 and albumin is 1.2. This is to be expected given current illness. Will attempt to increase oncotic pressure with 2 units of PRBC's and albumin infusions for the next 24 hours starting at midnight tonight. Will give lasix inbetween transfusions and then again tonight. CXR is consistent with pul monary edema volume overload. Will continue vent for now and after significant volume removal then will attempt extubation. Discussed with and she understands. Will continue to monitor. Agree with trickle feeds and cards has switched amio over to PO to be given through the G-tube. If tolerates, hopeful to be rid of TPN soon as this is necessary but excessive volume as well. 12/9: Added diprovan as more sedation was needed. Hopefully once closed and no leaks, patient can be extubated. Cards very concerned about length of time for IV amio. Will discuss with surgery the time frame that gut can be used. 10/21: Will hold on weaning until abdomen is closed, especially knowing mental status is good. Will focus on pain control. Replace electrolytes. Appreciate Surgery recs and detail. Follow up any new recs from cards. Or tomorrow for closure CCT 31 minutes. Subjective Date of service: 10/26/19 Principal diagnosis: acute renal failure Interval history: Placed on HFNC this am secondary to some increased work of breathing. Having episodes of confusion, but remains awake. Swelling has improved. Placed on PRN haldol yesterday and this has helped with confusion some. No family present at bedside this am. Had fever last night but not cultured. Objective Vital Signs - 12hr 10/26/19 10/26/19 10/26/19 01:00 02:00 03:00 Temperature Pulse Rate 94 H 93 H 94 H Pulse Rate [ 93 H Anterior Bilateral Throughout] Pulse Rate [ From Monitor] Respiratory 32 H 28 H 28 H Rate Respiratory 26 H Rate [Anterior Bilateral Throughout] Blood Pressure 173/80 164/72 152/80 O2 Sat by Pulse 82 L 93 83 L Oximetry 10/26/19 10/26/19 10/26/19 03:13 04:00 05:00 Temperature 102 F H Pulse Rate 89 89 Pulse Rate [ Anterior Bilateral Throughout] Pulse Rate [ 82 From Monitor] Respiratory 25 H 33 H Rate Respiratory Rate [Anterior Bilateral Throughout] Blood Pressure 111/77 129/69 O2 Sat by Pulse 95 95 Oximetry 10/26/19 10/26/19 10/26/19 06:00 07:00 07:58 Temperature Pulse Rate 91 H 94 H Pulse Rate [ Anterior Bilateral Throughout] Pulse Rate [ From Monitor] Respiratory 33 H 39 H Rate Respiratory Rate [Anterior Bilateral Throughout] Blood Pressure 174/74 166/70 O2 Sat by Pulse 94 95 95 Oximetry 10/26/19 10/26/19 10/26/19 08:00 09:00 10:00 Temperature 98.9 F Pulse Rate 91 H 94 H 91 H Pulse Rate [ 91 H Anterior Bilateral Throughout] Pulse Rate [ 92 H From Monitor] Respiratory 41 H 39 H 32 H Rate Respiratory 34 H Rate [Anterior Bilateral Throughout] Blood Pressure 185/54 154/81 168/78 O2 Sat by Pulse 96 95 95 Oximetry 10/26/19 11:00 Temperature Pulse Rate 91 H Pulse Rate [ Anterior Bilateral Throughout] Pulse Rate [ From Monitor] Respiratory 42 H Rate Respiratory Rate [Anterior Bilateral Throughout] Blood Pressure 173/81 O2 Sat by Pulse 98 Oximetry Constitutional: alert Eyes: non-icteric ENT: oropharynx moist Neck: supple Effort: normal Ascultation: Bilateral: diminished breath sounds Cardiovascular: regular rate and rhythm Gastrointestinal: tender Integumentary: normal Extremities: no cyanosis Neurologic: normal mental status, non-focal exam Psychiatric: mood appropriate, affect normal CBC and BMP: 10/25/19 04:19 10/26/19 06:15 ABG, PT/INR, D-dimer: ABG POC ABG pH 7.310 (7.35-7.45) L 10/17/19 05:41 ABG pH 7.390 pH Units (7.350-7.450) 10/23/19 04:47 POC ABG pCO2 52.8 (35-45) H 10/17/19 05:41 ABG pCO2 48.4 mm Hg 10/23/19 04:47 POC ABG pO2 70 (80-105) L 10/17/19 05:41 ABG pO2 68.9 mm Hg (80.0-90.0) L 10/23/19 04:47 POC ABG HCO3 26.6 (22-26 mml/L) 10/17/19 05:41 POC ABG Total CO2 28 (23-27mmol/L) 10/17/19 05:41 POC ABG O2 Sat 92 10/17/19 05:41 ABG O2 Saturation 96.6 % (95.0-99.0) 10/23/19 04:47 Abnormal lab findings: Abnormal Labs 10/06/19 10/06/19 10/07/19 05:36 05:36 05:54 WBC 21.8 H 21.5 H RBC 3.55 L Hgb 10.9 L Hct 32.7 L RDW Plt Count Lymph % (Auto) [place] % (Auto) Lymph # [place] # Seg Neutrophils % Seg Neuts % (Manual) 91.0 H Lymphocytes % (Manual) 2.0 L Seg Neutrophils # Seg Neutrophils # Man 19.8 H Lymphocytes # (Manual) 0.4 L Monocytes # (Manual) 1.1 H POC ABG pH ABG pH POC ABG pCO2 POC ABG pO2 ABG pO2 ABG HCO3 ABG Base Excess ABG Hemoglobin Oxyhemoglobin Sodium 135 L Potassium Chloride 95.9 L Carbon Dioxide BUN Creatinine 0.7 L Glucose POC Glucose Calcium Phosphorus Magnesium Direct Bilirubin AST Alkaline Phosphatase C-Reactive Protein Serum Total Protein Total Protein 5.7 L Albumin 2.5 L Prealbumin Lpqsf-2-Zhgzyibzm Yldlv-6-Lljnzqtrq Gamma Globulins PEP Interpretation Triglycerides Urine Creatinine Urine Total Protein Digoxin Crossmatch 10/07/19 10/09/19 10/09/19 05:54 10:52 10:52 WBC 16.6 H RBC Hgb Hct RDW Plt Count 498 H Lymph % (Auto) [place] % (Auto) Lymph # [place] # Seg Neutrophils % Seg Neuts % (Manual) 93.0 H Lymphocytes % (Manual) 5.0 L Seg Neutrophils # Seg Neutrophils # Man 15.4 H Lymphocytes # (Manual) 0.8 L Monocytes # (Manual) POC ABG pH ABG pH POC ABG pCO2 POC ABG pO2 ABG pO2 ABG HCO3 ABG Base Excess ABG Hemoglobin Oxyhemoglobin Sodium Potassium Chloride 97.9 L Carbon Dioxide 20 L D BUN 23 H Creatinine 1.7 H D Glucose 109 H POC Glucose Calcium 8.1 L Phosphorus Magnesium Direct Bilirubin AST Alkaline Phosphatase C-Reactive Protein Serum Total Protein Total Protein Albumin Prealbumin Rvpzv-0-Redbdqnmz Iuqaq-3-Swqnhrlyg Gamma Globulins PEP Interpretation Triglycerides Urine Creatinine Urine Total Protein Digoxin Crossmatch 10/09/19 10/10/19 10/10/19 17:23 05:30 05:30 WBC 14.6 H RBC Hgb 11.1 L Hct 33.5 L RDW Plt Count 527 H Lymph % (Auto) [place] % (Auto) Lymph # [place] # Seg Neutrophils % Seg Neuts % (Manual) Lymphocytes % (Manual) Seg Neutrophils # Seg Neutrophils # Man Lymphocytes # (Manual) Monocytes # (Manual) POC ABG pH ABG pH POC ABG pCO2 POC ABG pO2 ABG pO2 ABG HCO3 ABG Base Excess ABG Hemoglobin Oxyhemoglobin Sodium 130 L D Potassium 5.1 H Chloride 90.0 L 91.0 L Carbon Dioxide 20 L 20 L BUN 27 H 35 H Creatinine 1.9 H 2.0 H Glucose 104 H POC Glucose Calcium Phosphorus Magnesium Direct Bilirubin AST Alkaline Phosphatase C-Reactive Protein Serum Total Protein Total Protein Albumin Prealbumin Bygob-3-Oslanueyy Boviy-6-Ueqogywgb Gamma Globulins PEP Interpretation Triglycerides Urine Creatinine Urine Total Protein Digoxin Crossmatch 10/10/19 10/10/19 10/11/19 08:33 08:44 05:41 WBC 13.2 H RBC Hgb 11.3 L Hct 33.8 L RDW 15.3 H Plt Count 543 H Lymph % (Auto) [place] % (Auto) Lymph # [place] # Seg Neutrophils % Seg Neuts % (Manual) Lymphocytes % (Manual) Seg Neutrophils # Seg Neutrophils # Man Lymphocytes # (Manual) Monocytes # (Manual) POC ABG pH ABG pH POC ABG pCO2 POC ABG pO2 ABG pO2 ABG HCO3 ABG Base Excess ABG Hemoglobin Oxyhemoglobin Sodium Potassium Chloride Carbon Dioxide BUN Creatinine Glucose 113 H POC Glucose 117 H Calcium Phosphorus Magnesium Direct Bilirubin AST Alkaline Phosphatase C-Reactive Protein Serum Total Protein Total Protein Albumin Prealbumin Ntmvg-0-Wtkuhrtrp Gbdno-5-Dmjykmtil Gamma Globulins PEP Interpretation Triglycerides Urine Creatinine Urine Total Protein Digoxin Crossmatch 10/11/19 10/11/19 10/11/19 05:41 06:23 06:23 WBC RBC Hgb Hct RDW Plt Count Lymph % (Auto) [place] % (Auto) Lymph # [place] # Seg Neutrophils % Seg Neuts % (Manual) Lymphocytes % (Manual) Seg Neutrophils # Seg Neutrophils # Man Lymphocytes # (Manual) Monocytes # (Manual) POC ABG pH ABG pH POC ABG pCO2 POC ABG pO2 ABG pO2 ABG HCO3 ABG Base Excess ABG Hemoglobin Oxyhemoglobin Sodium 134 L Potassium Chloride 96.3 L Carbon Dioxide BUN 37 H Creatinine Glucose 58 L POC Glucose Calcium Phosphorus 4.90 H Magnesium Direct Bilirubin AST Alkaline Phosphatase C-Reactive Protein Serum Total Protein Total Protein Albumin Prealbumin Bbjdp-9-Revzlaqyv Oyjll-2-Hcpcdcpnv Gamma Globulins PEP Interpretation Triglycerides Urine Creatinine 118.2 H 116.8 H Urine Total Protein 105 H 104 H Digoxin Crossmatch 10/11/19 10/12/19 10/12/19 09:00 06:09 06:09 WBC 13.8 H RBC 3.39 L Hgb 10.2 L Hct 30.9 L RDW 15.5 H Plt Count 459 H Lymph % (Auto) [place] % (Auto) Lymph # [place] # Seg Neutrophils % Seg Neuts % (Manual) Lymphocytes % (Manual) Seg Neutrophils # Seg Neutrophils # Man Lymphocytes # (Manual) Monocytes # (Manual) POC ABG pH ABG pH POC ABG pCO2 POC ABG pO2 ABG pO2 ABG HCO3 ABG Base Excess ABG Hemoglobin Oxyhemoglobin Sodium 131 L Potassium Chloride 96.2 L Carbon Dioxide 21 L BUN 43 H Creatinine Glucose 72 L POC Glucose Calcium Phosphorus Magnesium Direct Bilirubin AST Alkaline Phosphatase C-Reactive Protein Serum Total Protein 5.2 L Total Protein Albumin 1.9 L Prealbumin Emmva-3-Yrrkidfub 0.9 H Hscwl-7-Uahrligtw 1.0 H Gamma Globulins 0.7 L PEP Interpretation see below H Triglycerides Urine Creatinine Urine Total Protein Digoxin Crossmatch 10/12/19 10/12/19 10/12/19 08:20 09:30 09:30 WBC RBC Hgb Hct RDW Plt Count Lymph % (Auto) [place] % (Auto) Lymph # [place] # Seg Neutrophils % Seg Neuts % (Manual) Lymphocytes % (Manual) Seg Neutrophils # Seg Neutrophils # Man Lymphocytes # (Manual) Monocytes # (Manual) POC ABG pH ABG pH POC ABG pCO2 POC ABG pO2 63 L ABG pO2 ABG HCO3 ABG Base Excess ABG Hemoglobin Oxyhemoglobin Sodium Potassium Chloride Carbon Dioxide BUN Creatinine Glucose POC Glucose Calcium Phosphorus Magnesium 2.50 H Direct Bilirubin 0.3 H AST Alkaline Phosphatase C-Reactive Protein Serum Total Protein Total Protein 5.1 L Albumin 2.2 L Prealbumin Hwdyi-2-Tguidfknx Ehpir-3-Qgcjbpxqw Gamma Globulins PEP Interpretation Triglycerides Urine Creatinine Urine Total Protein Digoxin Crossmatch 10/13/19 10/13/19 10/13/19 04:20 04:20 13:20 WBC 15.7 H RBC 3.64 L Hgb 10.9 L Hct 33.1 L RDW 15.8 H Plt Count 488 H Lymph % (Auto) [place] % (Auto) Lymph # [place] # Seg Neutrophils % Seg Neuts % (Manual) Lymphocytes % (Manual) Seg Neutrophils # Seg Neutrophils # Man Lymphocytes # (Manual) Monocytes # (Manual) POC ABG pH ABG pH POC ABG pCO2 POC ABG pO2 ABG pO2 ABG HCO3 ABG Base Excess ABG Hemoglobin Oxyhemoglobin Sodium Potassium Chloride Carbon Dioxide BUN 28 H Creatinine Glucose POC Glucose Calcium Phosphorus Magnesium Direct Bilirubin AST Alkaline Phosphatase C-Reactive Protein Serum Total Protein Total Protein Albumin Prealbumin Rqybm-4-Hjrdlqtpb Eddji-0-Ygxrrlfby Gamma Globulins PEP Interpretation Triglycerides Urine Creatinine Urine Total Protein Digoxin Crossmatch See Detail 10/13/19 10/13/19 10/14/19 18:24 20:05 04:47 WBC 24.2 H RBC Hgb 10.9 L Hct 34.2 L RDW 17.0 H Plt Count 442 H Lymph % (Auto) [place] % (Auto) Lymph # [place] # Seg Neutrophils % Seg Neuts % (Manual) Lymphocytes % (Manual) Seg Neutrophils # Seg Neutrophils # Man Lymphocytes # (Manual) Monocytes # (Manual) POC ABG pH ABG pH 7.180 L* 7.278 L POC ABG pCO2 POC ABG pO2 ABG pO2 130.7 H ABG HCO3 ABG Base Excess -6.5 L -6.5 L ABG Hemoglobin 12.2 L 12.3 L Oxyhemoglobin 92.9 L Sodium Potassium Chloride Carbon Dioxide BUN Creatinine Glucose POC Glucose Calcium Phosphorus Magnesium Direct Bilirubin AST Alkaline Phosphatase C-Reactive Protein Serum Total Protein Total Protein Albumin Prealbumin Xuapy-4-Bofgycujs Jgzcw-3-Prohracuh Gamma Globulins PEP Interpretation Triglycerides Urine Creatinine Urine Total Protein Digoxin Crossmatch 10/14/19 10/14/19 10/14/19 04:47 05:40 10:14 WBC RBC Hgb Hct RDW Plt Count Lymph % (Auto) [place] % (Auto) Lymph # [place] # Seg Neutrophils % Seg Neuts % (Manual) Lymphocytes % (Manual) Seg Neutrophils # Seg Neutrophils # Man Lymphocytes # (Manual) Monocytes # (Manual) POC ABG pH ABG pH POC ABG pCO2 POC ABG pO2 ABG pO2 76.3 L ABG HCO3 19.1 L ABG Base Excess -5.8 L ABG Hemoglobin 10.9 L Oxyhemoglobin 93.4 L Sodium Potassium 5.1 H D Chloride 109.2 H Carbon Dioxide 17 L BUN 38 H Creatinine 1.8 H D Glucose 104 H POC Glucose Calcium 7.4 L Phosphorus 5.60 H Magnesium Direct Bilirubin AST Alkaline Phosphatase C-Reactive Protein Serum Total Protein Total Protein Albumin Prealbumin Iwqvk-2-Qxaabtqaw Ggcxt-1-Lchxklxui Gamma Globulins PEP Interpretation Triglycerides Urine Creatinine Urine Total Protein Digoxin Crossmatch 10/14/19 10/15/19 10/15/19 23:46 04:32 04:32 WBC 15.5 H RBC 2.89 L Hgb 8.8 L Hct 27.3 L D RDW 16.6 H Plt Count Lymph % (Auto) [place] % (Auto) Lymph # [place] # Seg Neutrophils % Seg Neuts % (Manual) Lymphocytes % (Manual) Seg Neutrophils # Seg Neutrophils # Man Lymphocytes # (Manual) Monocytes # (Manual) POC ABG pH ABG pH POC ABG pCO2 POC ABG pO2 ABG pO2 ABG HCO3 ABG Base Excess ABG Hemoglobin Oxyhemoglobin Sodium 147 H Potassium Chloride 114.0 H Carbon Dioxide 19 L BUN 42 H Creatinine Glucose 112 H POC Glucose 113 H Calcium 7.3 L Phosphorus Magnesium Direct Bilirubin AST 72 H Alkaline Phosphatase C-Reactive Protein 30.60 H Serum Total Protein Total Protein 4.0 L D Albumin 1.7 L Prealbumin 0.030 L Allyu-1-Rcxlaadsp Qvcpn-4-Zidebopoi Gamma Globulins PEP Interpretation Triglycerides Urine Creatinine Urine Total Protein Digoxin Crossmatch 10/15/19 10/15/19 10/15/19 05:30 12:08 17:23 WBC RBC Hgb Hct RDW Plt Count Lymph % (Auto) [place] % (Auto) Lymph # [place] # Seg Neutrophils % Seg Neuts % (Manual) Lymphocytes % (Manual) Seg Neutrophils # Seg Neutrophils # Man Lymphocytes # (Manual) Monocytes # (Manual) POC ABG pH ABG pH 7.296 L POC ABG pCO2 POC ABG pO2 ABG pO2 114.7 H ABG HCO3 ABG Base Excess -3.7 L ABG Hemoglobin 8.9 L Oxyhemoglobin Sodium Potassium Chloride Carbon Dioxide BUN Creatinine Glucose POC Glucose 106 H 106 H Calcium Phosphorus Magnesium Direct Bilirubin AST Alkaline Phosphatase C-Reactive Protein Serum Total Protein Total Protein Albumin Prealbumin Dresy-1-Yzzlipxks Trypv-2-Fbklwkehe Gamma Globulins PEP Interpretation Triglycerides Urine Creatinine Urine Total Protein Digoxin Crossmatch 10/16/19 10/16/19 10/16/19 00:07 04:44 05:24 WBC RBC Hgb Hct RDW Plt Count Lymph % (Auto) [place] % (Auto) Lymph # [place] # Seg Neutrophils % Seg Neuts % (Manual) Lymphocytes % (Manual) Seg Neutrophils # Seg Neutrophils # Man Lymphocytes # (Manual) Monocytes # (Manual) POC ABG pH ABG pH POC ABG pCO2 POC ABG pO2 ABG pO2 ABG HCO3 ABG Base Excess ABG Hemoglobin Oxyhemoglobin Sodium 150 H Potassium Chloride 115.8 H Carbon Dioxide BUN 35 H Creatinine Glucose 129 H POC Glucose 119 H 129 H Calcium 7.3 L Phosphorus 1.80 L D Magnesium Direct Bilirubin AST Alkaline Phosphatase C-Reactive Protein Serum Total Protein Total Protein Albumin Prealbumin Gqkbl-8-Kjudggymc Hqevm-3-Vrxvwzodl Gamma Globulins PEP Interpretation Triglycerides Urine Creatinine Urine Total Protein Digoxin Crossmatch 10/16/19 10/16/19 10/16/19 06:53 09:20 11:58 WBC 14.6 H RBC 2.70 L Hgb 8.1 L Hct 25.2 L RDW 16.7 H Plt Count Lymph % (Auto) [place] % (Auto) Lymph # [place] # Seg Neutrophils % Seg Neuts % (Manual) 79.0 H Lymphocytes % (Manual) 4.0 L Seg Neutrophils # Seg Neutrophils # Man 11.5 H Lymphocytes # (Manual) 0.6 L Monocytes # (Manual) POC ABG pH ABG pH POC ABG pCO2 47.0 H POC ABG pO2 ABG pO2 ABG HCO3 ABG Base Excess ABG Hemoglobin Oxyhemoglobin Sodium Potassium Chloride Carbon Dioxide BUN Creatinine Glucose POC Glucose Calcium Phosphorus Magnesium Direct Bilirubin AST Alkaline Phosphatase C-Reactive Protein Serum Total Protein Total Protein Albumin Prealbumin Xxxwv-2-Xocstbqsj Eqkag-3-Avinkxqbl Gamma Globulins PEP Interpretation Triglycerides Urine Creatinine Urine Total Protein Digoxin Crossmatch See Detail 10/16/19 10/16/19 10/16/19 15:23 17:50 23:58 WBC RBC Hgb Hct RDW Plt Count Lymph % (Auto) [place] % (Auto) Lymph # [place] # Seg Neutrophils % Seg Neuts % (Manual) Lymphocytes % (Manual) Seg Neutrophils # Seg Neutrophils # Man Lymphocytes # (Manual) Monocytes # (Manual) POC ABG pH ABG pH POC ABG pCO2 POC ABG pO2 ABG pO2 ABG HCO3 ABG Base Excess ABG Hemoglobin Oxyhemoglobin Sodium Potassium Chloride Carbon Dioxide BUN Creatinine Glucose POC Glucose 221 H 201 H 179 H Calcium Phosphorus Magnesium Direct Bilirubin AST Alkaline Phosphatase C-Reactive Protein Serum Total Protein Total Protein Albumin Prealbumin Jthvy-0-Vwzgtahfo Zwqgj-7-Pjwgjnbcu Gamma Globulins PEP Interpretation Triglycerides Urine Creatinine Urine Total Protein Digoxin Crossmatch 10/17/19 10/17/19 10/17/19 04:08 04:08 05:41 WBC 22.3 H RBC 3.35 L Hgb 10.0 L Hct 31.2 L D RDW 16.1 H Plt Count Lymph % (Auto) [place] % (Auto) Lymph # [place] # Seg Neutrophils % Seg Neuts % (Manual) Lymphocytes % (Manual) Seg Neutrophils # Seg Neutrophils # Man Lymphocytes # (Manual) Monocytes # (Manual) POC ABG pH 7.310 L ABG pH POC ABG pCO2 52.8 H POC ABG pO2 70 L ABG pO2 ABG HCO3 ABG Base Excess ABG Hemoglobin Oxyhemoglobin Sodium 147 H Potassium Chloride 114.9 H Carbon Dioxide BUN 36 H Creatinine Glucose 165 H POC Glucose Calcium 6.9 L Phosphorus 2.20 L D Magnesium Direct Bilirubin AST Alkaline Phosphatase C-Reactive Protein Serum Total Protein Total Protein Albumin Prealbumin Ihddm-2-Loseutofe Ohydt-1-Eimaooyqb Gamma Globulins PEP Interpretation Triglycerides Urine Creatinine Urine Total Protein Digoxin Crossmatch 10/17/19 10/17/19 10/17/19 05:42 11:33 18:17 WBC RBC Hgb Hct RDW Plt Count Lymph % (Auto) [place] % (Auto) Lymph # [place] # Seg Neutrophils % Seg Neuts % (Manual) Lymphocytes % (Manual) Seg Neutrophils # Seg Neutrophils # Man Lymphocytes # (Manual) Monocytes # (Manual) POC ABG pH ABG pH POC ABG pCO2 POC ABG pO2 ABG pO2 ABG HCO3 ABG Base Excess ABG Hemoglobin Oxyhemoglobin Sodium Potassium Chloride Carbon Dioxide BUN Creatinine Glucose POC Glucose 149 H 154 H 163 H Calcium Phosphorus Magnesium Direct Bilirubin AST Alkaline Phosphatase C-Reactive Protein Serum Total Protein Total Protein Albumin Prealbumin Pzovt-4-Owmvbtzjx Wamqt-8-Rjudhhprr Gamma Globulins PEP Interpretation Triglycerides Urine Creatinine Urine Total Protein Digoxin Crossmatch 10/17/19 10/18/19 10/18/19 23:34 03:29 04:50 WBC RBC Hgb Hct RDW Plt Count Lymph % (Auto) [place] % (Auto) Lymph # [place] # Seg Neutrophils % Seg Neuts % (Manual) Lymphocytes % (Manual) Seg Neutrophils # Seg Neutrophils # Man Lymphocytes # (Manual) Monocytes # (Manual) POC ABG pH ABG pH POC ABG pCO2 POC ABG pO2 ABG pO2 78.8 L ABG HCO3 ABG Base Excess ABG Hemoglobin 8.8 L Oxyhemoglobin Sodium Potassium Chloride 111.8 H Carbon Dioxide BUN 27 H Creatinine 0.6 L Glucose 140 H POC Glucose 135 H Calcium 7.1 L Phosphorus 1.80 L Magnesium Direct Bilirubin AST Alkaline Phosphatase C-Reactive Protein Serum Total Protein Total Protein Albumin Prealbumin Eslen-9-Nlrwjsalu Cqcuz-2-Mjwtfarwv Gamma Globulins PEP Interpretation Triglycerides Urine Creatinine Urine Total Protein Digoxin Crossmatch 10/18/19 10/18/19 10/18/19 05:45 11:19 18:26 WBC RBC Hgb Hct RDW Plt Count Lymph % (Auto) [place] % (Auto) Lymph # [place] # Seg Neutrophils % Seg Neuts % (Manual) Lymphocytes % (Manual) Seg Neutrophils # Seg Neutrophils # Man Lymphocytes # (Manual) Monocytes # (Manual) POC ABG pH ABG pH POC ABG pCO2 POC ABG pO2 ABG pO2 ABG HCO3 ABG Base Excess ABG Hemoglobin Oxyhemoglobin Sodium Potassium Chloride Carbon Dioxide BUN Creatinine Glucose POC Glucose 145 H 152 H 125 H Calcium Phosphorus Magnesium Direct Bilirubin AST Alkaline Phosphatase C-Reactive Protein Serum Total Protein Total Protein Albumin Prealbumin Gfqsd-3-Ugfzpelgs Jipyp-1-Hvfjesyiz Gamma Globulins PEP Interpretation Triglycerides Urine Creatinine Urine Total Protein Digoxin Crossmatch 10/18/19 10/19/19 10/19/19 23:27 04:21 04:21 WBC RBC Hgb Hct RDW Plt Count Lymph % (Auto) [place] % (Auto) Lymph # [place] # Seg Neutrophils % Seg Neuts % (Manual) Lymphocytes % (Manual) Seg Neutrophils # Seg Neutrophils # Man Lymphocytes # (Manual) Monocytes # (Manual) POC ABG pH ABG pH POC ABG pCO2 POC ABG pO2 ABG pO2 ABG HCO3 ABG Base Excess ABG Hemoglobin Oxyhemoglobin Sodium Potassium Chloride 108.4 H Carbon Dioxide BUN 22 H Creatinine 0.5 L Glucose 123 H POC Glucose 127 H Calcium 7.4 L Phosphorus 1.80 L Magnesium Direct Bilirubin AST Alkaline Phosphatase C-Reactive Protein Serum Total Protein Total Protein Albumin Prealbumin Dmoea-2-Yxvvylanj Rqcps-5-Wizjtlyxt Gamma Globulins PEP Interpretation Triglycerides Urine Creatinine Urine Total Protein Digoxin 0.7 L Crossmatch 10/19/19 10/19/19 10/19/19 05:00 05:35 11:26 WBC RBC Hgb Hct RDW Plt Count Lymph % (Auto) [place] % (Auto) Lymph # [place] # Seg Neutrophils % Seg Neuts % (Manual) Lymphocytes % (Manual) Seg Neutrophils # Seg Neutrophils # Man Lymphocytes # (Manual) Monocytes # (Manual) POC ABG pH ABG pH 7.456 H POC ABG pCO2 POC ABG pO2 ABG pO2 78.8 L ABG HCO3 ABG Base Excess ABG Hemoglobin 5.6 L Oxyhemoglobin Sodium Potassium Chloride Carbon Dioxide BUN Creatinine Glucose POC Glucose 124 H 111 H Calcium Phosphorus Magnesium Direct Bilirubin AST Alkaline Phosphatase C-Reactive Protein Serum Total Protein Total Protein Albumin Prealbumin Wvchh-2-Ttjpcfvcr Qagvo-5-Umzbizonj Gamma Globulins PEP Interpretation Triglycerides Urine Creatinine Urine Total Protein Digoxin Crossmatch 10/19/19 10/20/19 10/20/19 23:23 04:50 05:17 WBC RBC Hgb Hct RDW Plt Count Lymph % (Auto) [place] % (Auto) Lymph # [place] # Seg Neutrophils % Seg Neuts % (Manual) Lymphocytes % (Manual) Seg Neutrophils # Seg Neutrophils # Man Lymphocytes # (Manual) Monocytes # (Manual) POC ABG pH ABG pH POC ABG pCO2 POC ABG pO2 ABG pO2 ABG HCO3 ABG Base Excess ABG Hemoglobin Oxyhemoglobin Sodium Potassium Chloride 108.1 H Carbon Dioxide BUN Creatinine 0.4 L Glucose 134 H POC Glucose 129 H 123 H Calcium 7.1 L Phosphorus Magnesium Direct Bilirubin AST Alkaline Phosphatase C-Reactive Protein Serum Total Protein Total Protein Albumin Prealbumin Cxclw-2-Rquadbnyf Axyfx-7-Dxrnjoapj Gamma Globulins PEP Interpretation Triglycerides Urine Creatinine Urine Total Protein Digoxin Crossmatch 10/20/19 10/20/19 10/21/19 11:40 19:06 05:08 WBC RBC Hgb Hct RDW Plt Count Lymph % (Auto) [place] % (Auto) Lymph # [place] # Seg Neutrophils % Seg Neuts % (Manual) Lymphocytes % (Manual) Seg Neutrophils # Seg Neutrophils # Man Lymphocytes # (Manual) Monocytes # (Manual) POC ABG pH ABG pH POC ABG pCO2 POC ABG pO2 ABG pO2 ABG HCO3 ABG Base Excess ABG Hemoglobin Oxyhemoglobin Sodium Potassium Chloride Carbon Dioxide BUN Creatinine Glucose POC Glucose 139 H 117 H 131 H Calcium Phosphorus Magnesium Direct Bilirubin AST Alkaline Phosphatase C-Reactive Protein Serum Total Protein Total Protein Albumin Prealbumin Cosye-1-Baidjiybv Agsdi-9-Gftvhkkwf Gamma Globulins PEP Interpretation Triglycerides Urine Creatinine Urine Total Protein Digoxin Crossmatch 10/21/19 10/21/19 10/21/19 05:30 12:04 17:31 WBC RBC Hgb Hct RDW Plt Count Lymph % (Auto) [place] % (Auto) Lymph # [place] # Seg Neutrophils % Seg Neuts % (Manual) Lymphocytes % (Manual) Seg Neutrophils # Seg Neutrophils # Man Lymphocytes # (Manual) Monocytes # (Manual) POC ABG pH ABG pH POC ABG pCO2 POC ABG pO2 ABG pO2 ABG HCO3 ABG Base Excess ABG Hemoglobin Oxyhemoglobin Sodium Potassium Chloride 107.8 H Carbon Dioxide BUN Creatinine 0.5 L Glucose 119 H POC Glucose 119 H 110 H Calcium 7.6 L Phosphorus Magnesium Direct Bilirubin AST Alkaline Phosphatase C-Reactive Protein Serum Total Protein Total Protein Albumin Prealbumin Fpecs-9-Aeyafcbyw Xnmzt-5-Ghwxgkuye Gamma Globulins PEP Interpretation Triglycerides Urine Creatinine Urine Total Protein Digoxin Crossmatch 10/22/19 10/22/19 10/22/19 05:14 05:37 12:07 WBC RBC Hgb Hct RDW Plt Count Lymph % (Auto) [place] % (Auto) Lymph # [place] # Seg Neutrophils % Seg Neuts % (Manual) Lymphocytes % (Manual) Seg Neutrophils # Seg Neutrophils # Man Lymphocytes # (Manual) Monocytes # (Manual) POC ABG pH ABG pH POC ABG pCO2 POC ABG pO2 ABG pO2 ABG HCO3 ABG Base Excess ABG Hemoglobin Oxyhemoglobin Sodium Potassium Chloride Carbon Dioxide BUN Creatinine 0.5 L Glucose 116 H POC Glucose 110 H 126 H Calcium 7.7 L Phosphorus Magnesium Direct Bilirubin AST Alkaline Phosphatase C-Reactive Protein Serum Total Protein Total Protein Albumin Prealbumin Aysgt-4-Insfpmglm Mgfmq-8-Gjuwrraze Gamma Globulins PEP Interpretation Triglycerides Urine Creatinine Urine Total Protein Digoxin Crossmatch 10/22/19 10/22/19 10/23/19 18:36 23:19 04:39 WBC RBC Hgb Hct RDW Plt Count Lymph % (Auto) [place] % (Auto) Lymph # [place] # Seg Neutrophils % Seg Neuts % (Manual) Lymphocytes % (Manual) Seg Neutrophils # Seg Neutrophils # Man Lymphocytes # (Manual) Monocytes # (Manual) POC ABG pH ABG pH POC ABG pCO2 POC ABG pO2 ABG pO2 ABG HCO3 ABG Base Excess ABG Hemoglobin Oxyhemoglobin Sodium Potassium Chloride Carbon Dioxide BUN Creatinine Glucose POC Glucose 120 H 127 H 112 H Calcium Phosphorus Magnesium Direct Bilirubin AST Alkaline Phosphatase C-Reactive Protein Serum Total Protein Total Protein Albumin Prealbumin Sqxcv-3-Alcchgcca Pdhof-5-Pcntkbirx Gamma Globulins PEP Interpretation Triglycerides Urine Creatinine Urine Total Protein Digoxin Crossmatch 10/23/19 10/23/19 10/23/19 04:47 05:15 10:44 WBC 18.3 H RBC 2.33 L Hgb 7.0 L Hct 21.5 L RDW 16.2 H Plt Count Lymph % (Auto) 4.9 L [place] % (Auto) 8.1 H Lymph # 0.9 L [place] # 1.5 H Seg Neutrophils % 86.7 H Seg Neuts % (Manual) Lymphocytes % (Manual) Seg Neutrophils # 15.9 H Seg Neutrophils # Man Lymphocytes # (Manual) Monocytes # (Manual) POC ABG pH ABG pH POC ABG pCO2 POC ABG pO2 ABG pO2 68.9 L ABG HCO3 28.7 H ABG Base Excess 3.4 H ABG Hemoglobin 6.6 L Oxyhemoglobin 94.1 L Sodium Potassium Chloride Carbon Dioxide BUN Creatinine 0.5 L Glucose 165 H POC Glucose Calcium 7.4 L Phosphorus Magnesium Direct Bilirubin AST Alkaline Phosphatase C-Reactive Protein Serum Total Protein Total Protein Albumin Prealbumin Wnfxd-8-Ewgzepyfj Kkqvr-6-Beleswcbv Gamma Globulins PEP Interpretation Triglycerides Urine Creatinine Urine Total Protein Digoxin Crossmatch 10/23/19 10/23/19 10/23/19 10:44 11:46 11:50 WBC RBC Hgb Hct RDW Plt Count Lymph % (Auto) [place] % (Auto) Lymph # [place] # Seg Neutrophils % Seg Neuts % (Manual) Lymphocytes % (Manual) Seg Neutrophils # Seg Neutrophils # Man Lymphocytes # (Manual) Monocytes # (Manual) POC ABG pH ABG pH POC ABG pCO2 POC ABG pO2 ABG pO2 ABG HCO3 ABG Base Excess ABG Hemoglobin Oxyhemoglobin Sodium Potassium Chloride Carbon Dioxide BUN Creatinine Glucose POC Glucose 138 H Calcium Phosphorus Magnesium Direct Bilirubin 0.7 H AST Alkaline Phosphatase C-Reactive Protein Serum Total Protein Total Protein 4.5 L Albumin 1.2 L Prealbumin Qedet-0-Hsmxsjuzd Xblov-3-Yohujyxtl Gamma Globulins PEP Interpretation Triglycerides Urine Creatinine Urine Total Protein Digoxin Crossmatch See Detail 10/23/19 10/24/19 10/24/19 17:53 00:07 05:05 WBC RBC Hgb Hct RDW Plt Count Lymph % (Auto) [place] % (Auto) Lymph # [place] # Seg Neutrophils % Seg Neuts % (Manual) Lymphocytes % (Manual) Seg Neutrophils # Seg Neutrophils # Man Lymphocytes # (Manual) Monocytes # (Manual) POC ABG pH ABG pH POC ABG pCO2 POC ABG pO2 ABG pO2 ABG HCO3 ABG Base Excess ABG Hemoglobin Oxyhemoglobin Sodium Potassium 3.5 L Chloride Carbon Dioxide BUN Creatinine 0.5 L Glucose 116 H POC Glucose 137 H 110 H Calcium 8.0 L Phosphorus Magnesium Direct Bilirubin AST Alkaline Phosphatase C-Reactive Protein Serum Total Protein Total Protein Albumin Prealbumin Jovex-3-Gyxnsiabc Igpmy-8-Pyyvgzfwu Gamma Globulins PEP Interpretation Triglycerides Urine Creatinine Urine Total Protein Digoxin Crossmatch 10/24/19 10/24/19 10/24/19 05:05 11:56 13:00 WBC 13.0 H RBC 2.73 L Hgb 8.0 L Hct 24.2 L RDW 17.9 H Plt Count Lymph % (Auto) 7.0 L [place] % (Auto) 9.5 H Lymph # 0.9 L [place] # 1.2 H Seg Neutrophils % 82.7 H Seg Neuts % (Manual) Lymphocytes % (Manual) Seg Neutrophils # 10.7 H Seg Neutrophils # Man Lymphocytes # (Manual) Monocytes # (Manual) POC ABG pH ABG pH POC ABG pCO2 POC ABG pO2 ABG pO2 ABG HCO3 ABG Base Excess ABG Hemoglobin Oxyhemoglobin Sodium Potassium Chloride Carbon Dioxide BUN Creatinine Glucose POC Glucose 159 H Calcium Phosphorus Magnesium Direct Bilirubin AST Alkaline Phosphatase C-Reactive Protein Serum Total Protein Total Protein Albumin Prealbumin Zuxup-1-Mumdforam Zvkqv-4-Ptxwshvzz Gamma Globulins PEP Interpretation Triglycerides 216 H Urine Creatinine Urine Total Protein Digoxin Crossmatch 10/24/19 10/24/19 10/25/19 17:42 23:45 04:19 WBC RBC Hgb Hct RDW Plt Count Lymph % (Auto) [place] % (Auto) Lymph # [place] # Seg Neutrophils % Seg Neuts % (Manual) Lymphocytes % (Manual) Seg Neutrophils # Seg Neutrophils # Man Lymphocytes # (Manual) Monocytes # (Manual) POC ABG pH ABG pH POC ABG pCO2 POC ABG pO2 ABG pO2 ABG HCO3 ABG Base Excess ABG Hemoglobin Oxyhemoglobin Sodium 147 H Potassium Chloride Carbon Dioxide 33 H BUN Creatinine 0.5 L Glucose 111 H POC Glucose 120 H 116 H Calcium Phosphorus Magnesium Direct Bilirubin AST Alkaline Phosphatase C-Reactive Protein Serum Total Protein Total Protein 5.7 L D Albumin 2.5 L Prealbumin Uzqjo-0-Ynpbjngnu Udzxa-0-Fzsnhacav Gamma Globulins PEP Interpretation Triglycerides 230 H Urine Creatinine Urine Total Protein Digoxin Crossmatch 12/11/0110/25/19 10/25/19 04:19 05:31 12:20 WBC RBC 2.69 L Hgb 8.1 L Hct 23.9 L RDW 17.3 H Plt Count Lymph % (Auto) [place] % (Auto) Lymph # [place] # Seg Neutrophils % Seg Neuts % (Manual) Lymphocytes % (Manual) Seg Neutrophils # Seg Neutrophils # Man Lymphocytes # (Manual) Monocytes # (Manual) POC ABG pH ABG pH POC ABG pCO2 POC ABG pO2 ABG pO2 ABG HCO3 ABG Base Excess ABG Hemoglobin Oxyhemoglobin Sodium Potassium Chloride Carbon Dioxide BUN Creatinine Glucose POC Glucose 126 H 114 H Calcium Phosphorus Magnesium Direct Bilirubin AST Alkaline Phosphatase C-Reactive Protein Serum Total Protein Total Protein Albumin Prealbumin Nfksh-7-Xhplgjkyy Wfgdr-0-Obkzifdqd Gamma Globulins PEP Interpretation Triglycerides Urine Creatinine Urine Total Protein Digoxin Crossmatch 10/25/19 10/25/19 10/26/19 18:30 23:09 06:15 WBC RBC Hgb Hct RDW Plt Count Lymph % (Auto) [place] % (Auto) Lymph # [place] # Seg Neutrophils % Seg Neuts % (Manual) Lymphocytes % (Manual) Seg Neutrophils # Seg Neutrophils # Man Lymphocytes # (Manual) Monocytes # (Manual) POC ABG pH ABG pH POC ABG pCO2 POC ABG pO2 ABG pO2 ABG HCO3 ABG Base Excess ABG Hemoglobin Oxyhemoglobin Sodium Potassium 3.5 L Chloride Carbon Dioxide BUN Creatinine 0.5 L Glucose 112 H POC Glucose 121 H 107 H Calcium 8.3 L Phosphorus Magnesium Direct Bilirubin AST Alkaline Phosphatase 148 H C-Reactive Protein Serum Total Protein Total Protein 5.9 L Albumin 2.4 L Prealbumin Nzbrb-4-[place] Idveo-8-Zxnjgbdhf Gamma Globulins PEP Interpretation Triglycerides Urine Creatinine Urine Total Protein Digoxin Crossmatch 10/26/19 10/26/19 06:15 12:21 WBC RBC Hgb Hct RDW Plt Count Lymph % (Auto) [place] % (Auto) Lymph # [place] # Seg Neutrophils % Seg Neuts % (Manual) Lymphocytes % (Manual) Seg Neutrophils # Seg Neutrophils # Man Lymphocytes # (Manual) Monocytes # (Manual) POC ABG pH ABG pH POC ABG pCO2 POC ABG pO2 ABG pO2 ABG HCO3 ABG Base Excess ABG Hemoglobin Oxyhemoglobin Sodium Potassium Chloride Carbon Dioxide BUN Creatinine Glucose POC Glucose 134 H Calcium Phosphorus Magnesium Direct Bilirubin AST Alkaline Phosphatase C-Reactive Protein Serum Total Protein Total Protein Albumin Prealbumin Ppdna-4-Lyewzjred Nhnis-4-Tfggtwwku Gamma Globulins PEP Interpretation Triglycerides 185 H Urine Creatinine Urine Total Protein Digoxin Crossmatch
[2019-10-26] MEDS: POTASSIUM CHLORIDE 10 MEQ 10 MEQ/100 ML BAG IV SCH ×3 (13:00→19:00)
--- NOTE | 2019-10-26 13:14 | Progress Note ---
Assessment and Plan Assessment and plan: Dehiscence of closure of fascia * Went to OR for ex lap with closure of abdominal wall and wound vac placement (10/05) * Continued to decline with possible Air vs fluid, 10/10/19 IR went in and placed two drains, Noted to have possible fecal material * Returned to the OR 10/13/19 due to concern for intra-abdominal infection and was found to have with heavy contamination of abdomen patent had disruption of bowel anastomosis, abdominal washout, abthera placement and colon stapled transection and left bowel enterotomy from anastomosis completely open * Returned to OR on 10/16/19 for abdominal washout, Partial Omentectomy, Partial Colectomy, Colostomy Creation and AbThera Placement * Abdominal washout and closure - 10/22 * cont wound care Severe sepsis secondary to bowel leak at anastomosis site/PNA -cont off abx per ID -blood cultures neg Acute Respiratory failure with hypoxia -Extubated yesterday -CurrentlyFNC -Plastics Scientist following Left lower lobe pneumonia -Continue IV antibiotic -CTA chest showed left lower lobe consolidation with pleural effusion GUILLERMO on CRF -probably ATN due to sepsis -Improving, will monitor -SPEP and UPEP pending -No hydronephrosis on CT -Whitfield in place, monitor I/O's Severe Metabolic acidosis -Improved Acute Toxic Metabolic Encephalopathy/Delirium Tremens -Started on CIWA protocol due to hx of ETOH abuse, 6packs a day -Head CT scan negative for acute findings Acute blood loss anemia -H/H stable -Continue to monitor H&H and transfuse for hb<7 SVT, Atrial fib/flutter with RVR -treated with adenosine x1 -off amiodarone and cardizem drip. On oral amiodarone and IV Lopressor. -HR currently controlled -Cardiology following Hypotension -Off esmolol drip -s/p IV fluid boluses, BP stable Hypophosphatemia -will monitor level Hx of Hypertension -Stable Hyperlipidemia -stable Atypical chest pain -probably secondary to pneumonitis -troponin levels neg Hx of LA/CAD -s/p PCI of the circumflex and second vessel POBA of the distal LAD occlusion. Left ventricle fraction of 45-50%. Morbid obesity with BMI of 45.4 -Lifestyle modification recommended COPD -Stable -cont neb tx Moderate Protein calorie malnutrition secondary to surgery -On TPN -Nutrition following Tobacco abuse -Cessation recommended Morbid obesity with BMI of 45.4 -Lifestyle modification recommended DVT and GI ppx: Lovenox/PPI Disp: Very poor prognosis. d/c per clinical course The high probability of a clinically significant, sudden or life threatening deterioration of the [respiratory] system(s) required my full and direct attention, intervention and personal management. The aggregate critical care time was [32] minutes. This time is in addition to time spent performing reported procedures but includes the following: [x] Data Review and interpretation [x] Patient assessment and monitoring of vital signs [x] Documentation [x] Medication orders and management History Interval history: Patient extubated on 10/25/19. Patient currently on HFNC Hospitalist Physical - Constitutional Vitals: Temp Pulse Resp BP Pulse Ox 101 F H 91 H 42 H 173/81 98 10/26/19 12:00 10/26/19 11:00 10/26/19 11:00 10/26/19 11:00 10/26/19 11:00 General appearance: Present: mild distress, well-nourished - EENT Eyes: Present: PERRL, EOM intact ENT: hearing intact, clear oral mucosa, dentition normal - Neck Neck: Present: supple, normal ROM - Respiratory Respiratory effort: normal Respiratory: bilateral: CTA - Cardiovascular Rhythm: regular Heart Sounds: Present: S1 & S2. Absent: gallop, rub - Extremities Extremities: no ischemia, No edema, Full ROM - Abdominal General gastrointestinal: soft, tender, non-distended, normal bowel sounds - Integumentary Integumentary: Present: clear, warm, dry - Neurologic Neurologic: CNII-XII intact, moves all extremities Results - Labs CBC & Chem 7: 10/25/19 04:19 10/26/19 06:15 Labs: Laboratory Last Values WBC 10.2 K/mm3 (4.5-11.0) 10/25/19 04:19 RBC 2.69 M/mm3 (3.65-5.03) L 10/25/19 04:19 Hgb 8.1 gm/dl (11.8-15.2) L 10/25/19 04:19 Hct 23.9 % (35.5-45.6) L 10/25/19 04:19 MCV 89 fl (84-94) 10/25/19 04:19 MCH 30 pg (28-32) 10/25/19 04:19 MCHC 34 % (32-34) 10/25/19 04:19 RDW 17.3 % (13.2-15.2) H 10/25/19 04:19 Plt Count 261 K/mm3 (140-440) 10/25/19 04:19 Lymph % (Auto) 7.0 % (13.4-35.0) L 10/24/19 05:05 Stearns % (Auto) 9.5 % (0.0-7.3) H 10/24/19 05:05 Eos % (Auto) 0.6 % (0.0-4.3) 10/24/19 05:05 Baso % (Auto) 0.2 % (0.0-1.8) 10/24/19 05:05 Lymph # 0.9 K/mm3 (1.2-5.4) L 10/24/19 05:05 Stearns # 1.2 K/mm3 (0.0-0.8) H 10/24/19 05:05 Eos # 0.1 K/mm3 (0.0-0.4) 10/24/19 05:05 Baso # 0.0 K/mm3 (0.0-0.1) 10/24/19 05:05 Add Manual Diff Complete 10/16/19 09:20 Total Counted 100 10/16/19 09:20 Seg Neutrophils % 82.7 % (40.0-70.0) H 10/24/19 05:05 Seg Neuts % (Manual) 79.0 % (40.0-70.0) H 10/16/19 09:20 Band Neutrophils % 12.0 % 10/16/19 09:20 Lymphocytes % (Manual) 4.0 % (13.4-35.0) L 10/16/19 09:20 Reactive Lymphs % (Man) 0 % 10/16/19 09:20 Monocytes % (Manual) 2.0 % (0.0-7.3) 10/16/19 09:20 Eosinophils % (Manual) 0 % (0.0-4.3) 10/16/19 09:20 Basophils % (Manual) 0 % (0.0-1.8) 10/16/19 09:20 Metamyelocytes % 2.0 % 10/16/19 09:20 Myelocytes % 1.0 % 10/16/19 09:20 Promyelocytes % 0 % 10/16/19 09:20 Blast Cells % 0 % 10/16/19 09:20 Nucleated RBC % Not Reportable 10/16/19 09:20 Seg Neutrophils # 10.7 K/mm3 (1.8-7.7) H 10/24/19 05:05 Seg Neutrophils # Man 11.5 K/mm3 (1.8-7.7) H 10/16/19 09:20 Band Neutrophils # 1.8 K/mm3 10/16/19 09:20 Lymphocytes # (Manual) 0.6 K/mm3 (1.2-5.4) L 10/16/19 09:20 Abs React Lymphs (Man) 0.0 K/mm3 10/16/19 09:20 Monocytes # (Manual) 0.3 K/mm3 (0.0-0.8) 10/16/19 09:20 Eosinophils # (Manual) 0.0 K/mm3 (0.0-0.4) 10/16/19 09:20 Basophils # (Manual) 0.0 K/mm3 (0.0-0.1) 10/16/19 09:20 Metamyelocytes # 0.3 K/mm3 10/16/19 09:20 Myelocytes # 0.1 K/mm3 10/16/19 09:20 Promyelocytes # 0.0 K/mm3 10/16/19 09:20 Blast Cells # 0.0 K/mm3 10/16/19 09:20 WBC Morphology Not Reportable 10/16/19 09:20 Hypersegmented Neuts Not Reportable 10/16/19 09:20 Hyposegmented Neuts Not Reportable 10/16/19 09:20 Hypogranular Neuts Not Reportable 10/16/19 09:20 Smudge Cells Not Reportable 10/16/19 09:20 Toxic Granulation Not Reportable 10/16/19 09:20 Toxic Vacuolation Not Reportable 10/16/19 09:20 Dohle Bodies Not Reportable 10/16/19 09:20 Pelger-Huet Anomaly Not Reportable 10/16/19 09:20 Andres Rods Not Reportable 10/16/19 09:20 Platelet Estimate Consistent w auto 10/16/19 09:20 Clumped Platelets Not Reportable 10/16/19 09:20 Plt Clumps, EDTA Not Reportable 10/16/19 09:20 Large Platelets Not Reportable 10/16/19 09:20 Giant Platelets Not Reportable 10/16/19 09:20 Platelet Satelliting Not Reportable 10/16/19 09:20 Plt Morphology Comment Not Reportable 10/16/19 09:20 RBC Morphology Not Reportable 10/16/19 09:20 Dimorphic RBCs Not Reportable 10/16/19 09:20 Polychromasia Few 10/16/19 09:20 Hypochromasia Few 10/16/19 09:20 Poikilocytosis Not Reportable 10/16/19 09:20 Anisocytosis Not Reportable 10/16/19 09:20 Microcytosis Not Reportable 10/16/19 09:20 Macrocytosis Not Reportable 10/16/19 09:20 Spherocytes Not Reportable 10/16/19 09:20 Pappenheimer Bodies Not Reportable 10/16/19 09:20 Sickle Cells Not Reportable 10/16/19 09:20 Target Cells Few 10/16/19 09:20 Tear Drop Cells Not Reportable 10/16/19 09:20 Ovalocytes Not Reportable 10/16/19 09:20 Helmet Cells Not Reportable 10/16/19 09:20 Varghese-Bettendorf Bodies Not Reportable 10/16/19 09:20 [place] Rings Not Reportable 10/16/19 09:20 Bishnu Cells Not Reportable 10/16/19 09:20 Bite Cells Not Reportable 10/16/19 09:20 Crenated Cell Not Reportable 10/16/19 09:20 Elliptocytes Not Reportable 10/16/19 09:20 Acanthocytes (Spur) Not Reportable 10/16/19 09:20 Rouleaux Not Reportable 10/16/19 09:20 Hemoglobin C Crystals Not Reportable 10/16/19 09:20 Schistocytes Not Reportable 10/16/19 09:20 Malaria parasites Not Reportable 10/16/19 09:20 Toni Bodies Not Reportable 10/16/19 09:20 Hem Pathologist Commnt No 10/16/19 09:20 POC ABG pH 7.310 (7.35-7.45) L 10/17/19 05:41 ABG pH 7.390 pH Units (7.350-7.450) 10/23/19 04:47 POC ABG pCO2 52.8 (35-45) H 10/17/19 05:41 ABG pCO2 48.4 mm Hg 10/23/19 04:47 POC ABG pO2 70 (80-105) L 10/17/19 05:41 ABG pO2 68.9 mm Hg (80.0-90.0) L 10/23/19 04:47 POC ABG HCO3 26.6 (22-26 mml/L) 10/17/19 05:41 ABG HCO3 28.7 mmol/L (20.0-26.0) H 10/23/19 04:47 POC ABG Total CO2 28 (23-27mmol/L) 10/17/19 05:41 POC ABG O2 Sat 92 10/17/19 05:41 ABG O2 Saturation 96.6 % (95.0-99.0) 10/23/19 04:47 ABG O2 Content 8.8 (0.0-44) 10/23/19 04:47 POC ABG Base Excess 0 ((-2) - (+3)mmol/L) 10/17/19 05:41 ABG Base Excess 3.4 mmol/L (-2.0-3.0) H 10/23/19 04:47 ABG Hemoglobin 6.6 gm/dl (14.0-18.0) L 10/23/19 04:47 ABG Carboxyhemoglobin 2.1 % (0.0-5.0) 10/23/19 04:47 ABG Methemoglobin 0.5 % (0.0-1.5) 10/23/19 04:47 Oxyhemoglobin 94.1 % (95.0-99.0) L 10/23/19 04:47 FiO2 40 % 10/23/19 04:47 Sodium 143 mmol/L (137-145) 10/26/19 06:15 Potassium 3.5 mmol/L (3.6-5.0) L 10/26/19 06:15 Chloride 100.3 mmol/L (98-107) 10/26/19 06:15 Carbon Dioxide 27 mmol/L (22-30) 10/26/19 06:15 Anion Gap 19 mmol/L 10/26/19 06:15 BUN 17 mg/dL (9-20) 10/26/19 06:15 Creatinine 0.5 mg/dL (0.8-1.5) L 10/26/19 06:15 Estimated GFR > 60 ml/min 10/26/19 06:15 BUN/Creatinine Ratio 34 % 10/26/19 06:15 Glucose 112 mg/dL (75-100) H 10/26/19 06:15 POC Glucose 134 (70-105) H 10/26/19 12:21 Hemoglobin A1c 5.7 % (4-6) 10/06/19 05:36 Lactic Acid 1.10 mmol/L (0.7-2.0) 10/13/19 04:20 Calcium 8.3 mg/dL (8.4-10.2) L 10/26/19 06:15 Ionized Calcium 5.2 mg/dL (4.8-5.6) 10/18/19 07:41 Phosphorus 2.60 mg/dL (2.5-4.5) D 10/26/19 10:13 Magnesium 2.00 mg/dL (1.7-2.3) 10/26/19 10:13 Total Bilirubin 1.10 mg/dL (0.1-1.2) 10/26/19 06:15 Direct Bilirubin 0.7 mg/dL (0-0.2) H 10/23/19 10:44 Indirect Bilirubin 0.1 mg/dL 10/23/19 10:44 AST 23 units/L (5-40) 10/26/19 06:15 ALT 13 units/L (7-56) 10/26/19 06:15 Alkaline Phosphatase 148 units/L (35-129) H 10/26/19 06:15 Ammonia 49.0 umol/L (25-60) 10/13/19 04:20 Troponin T < 0.010 ng/mL (0.00-0.029) 10/09/19 17:23 C-Reactive Protein 30.60 mg/dL (0.00-1.30) H 10/15/19 04:32 Serum Total Protein 5.2 g/dL (6.1-8.1) L 10/11/19 09:00 Total Protein 5.9 g/dL (6.3-8.2) L 10/26/19 06:15 Albumin 2.4 g/dL (3.9-5) L 10/26/19 06:15 Albumin/Globulin Ratio 0.7 % 10/26/19 06:15 Prealbumin 0.030 g/L (0.200-0.400) L 10/15/19 04:32 [id number] See scanned result 10/11/19 Unknown [id number] See scanned result 10/11/19 Unknown Beta Globulins See scanned result 10/11/19 Unknown Gamma Globulins See scanned result 10/11/19 Unknown Abnorm Protein Band 1 see below 10/11/19 09:00 PEP Interpretation See scanned result 10/11/19 Unknown Triglycerides 185 mg/dL (2-149) H 10/26/19 06:15 Urine Color Obdulia (Yellow) 10/11/19 06:23 Urine Turbidity Cloudy (Clear) 10/11/19 06:23 Urine pH 5.0 (5.0-7.0) 10/11/19 06:23 Ur Specific [place] 1.018 (1.003-1.030) 10/11/19 06:23 Urine Protein 30 mg/dl mg/dL (Negative) 10/11/19 06:23 Urine Glucose (UA) Neg mg/dL (Negative) 10/11/19 06:23 Urine Ketones Neg mg/dL (Negative) 10/11/19 06:23 Urine Blood Mod (Negative) 10/11/19 06:23 Urine Nitrite Neg (Negative) 10/11/19 06:23 Urine Bilirubin Neg (Negative) 10/11/19 06:23 Urine Urobilinogen < 2.0 mg/dL (<2.0) 10/11/19 06:23 Ur Leukocyte Esterase Neg (Negative) 10/11/19 06:23 Urine WBC (Auto) 3.0 /HPF (0.0-6.0) 10/11/19 06:23 Urine RBC (Auto) 3.0 /HPF (0.0-6.0) 10/11/19 06:23 Urine Bacteria (Auto) 1+ /HPF (Negative) 10/11/19 06:23 Urine Eosinophils None seen (None Seen) 10/11/19 06:23 Ur Random Creatinine See scanned result 10/11/19 Unknown U Random Total Protein See scanned result 10/11/19 Unknown Urine Creatinine 116.8 mg/dL (0.1-20.0) H 10/11/19 06:23 Urine Creatinine 118.2 mg/dL (0.1-20.0) H 10/11/19 06:23 Protein/Creatinin Ratio See scanned result 10/11/19 Unknown Urine Sodium 14 mmol/L 10/11/19 06:23 Urine Total Protein 104 mg/dL (5-11.8) H 10/11/19 06:23 Urine Total Protein 105 mg/dL (5-11.8) H 10/11/19 06:23 U Abnormal Prot Band 1 See scanned result 10/11/19 Unknown U Abnormal Prot Band 2 See scanned result 10/11/19 Unknown U Abnormal Prot Band 3 See scanned result 10/11/19 Unknown Digoxin 0.7 ng/mL (0.9-2.0) L 10/19/19 04:21 Blood Type A POSITIVE 10/23/19 11:50 Antibody Screen Negative 10/23/19 11:50 Crossmatch See Detail 10/23/19 11:50 Active Medications - Current Medications Current Medications: Generic Name Dose Route Start Last Admin Trade Name Freq PRN Reason Stop Dose Admin Acetaminophen 650 mg 10/25/19 13:00 10/25/19 13:55 Tylenol FEEDTUBE 650 mg Q4H PRN Administration Fever >100.5 Albuterol 2.5 mg 10/05/19 21:36 Proventil IH Q4HRT PRN Shortness Of Breath Albuterol/Ipratropium 1 ampul 10/06/19 02:00 10/26/19 08:14 Duoneb *Not For Prn Use* IH 1 ampul Q6HRT VERÓNICA Administration Amiodarone HCl 200 mg 10/23/19 13:00 10/26/19 10:00 Cordarone PO 200 mg QDAY VERÓNICA Administration Lipase/Protease/Amylase 1 each 10/20/19 10:37 Pancremeeta Moreno 10,500 Unit FEEDTUBE PRN PRN For Clogged Feeding Tube Arformoterol Tartrate 15 mcg 10/06/19 08:30 10/26/19 08:15 Brovana Nebu IH 15 mcg Q12HRT VERÓNICA Administration Budesonide 0.5 mg 10/07/19 12:20 10/26/19 08:14 Pulmicort IH 0.5 mg Q12HRT [facility] Administration Citalopram Hydrobromide 20 mg 10/27/19 12:00 Celexa PO DAILY [facility] Enoxaparin Sodium 40 mg 10/22/19 22:00 10/25/19 21:49 Enoxaparin SUB-Q 40 mg QDAY@2200 [facility] Administration Fentanyl 50 mcg 10/25/19 12:35 Sublimaze IV Q2H PRN PAIN SCORE </=5 Furosemide 40 mg 10/26/19 18:00 Lasix IV 10/26/19 18:01 ONCE ONE Haloperidol Lactate 5 mg 10/25/19 18:22 10/26/19 10:51 Haldol IV 5 mg Q6H PRN Administration Agitation Hydromorphone HCl 2 mg 10/25/19 12:35 10/26/19 00:36 Dilaudid IV 2 mg Q4H PRN Administration PAIN SCORE >/=6 Amino Acids/Electrolytes/Dextrose 2,400 mls @ 100 mls/hr 10/25/19 20:00 10/25/19 19:44 Tpn Adult IV 10/26/19 19:59 100 mls/hr DAILY@1999 [facility] Administration Protocol Amino Acids/Electrolytes/Dextrose 2,400 mls @ 100 mls/hr 10/26/19 20:00 Tpn Adult IV 10/27/19 19:59 DAILY@1999 [facility] Protocol Potassium Chloride 10 meq in 100 mls @ 100 mls/hr 10/26/19 13:00 Kcl 10meq/100ml IV 10/26/19 16:59 Q1H [facility] Insulin Human Lispro 0 unit 10/14/19 12:00 10/26/19 05:15 Humalog SUB-Q Not Given Q6HR [facility] Protocol Metoprolol Tartrate 2.5 mg 10/15/19 15:34 10/18/19 00:05 Metoprolol IV 2.5 mg Q4HR PRN Administration HR >130 Metoprolol Tartrate 50 mg 10/25/19 14:00 10/26/19 06:00 Metoprolol PO Not Given Q8HR [facility] Multi-Ingred Cream/Lotion/Oil/Oint 1 applic 10/14/19 02:19 Artificial Tears Ophth Oint OU Q4HR PRN Dry Eye(s) Ondansetron HCl 4 mg 10/05/19 21:22 10/11/19 18:20 Zofran IV 4 mg Q3H PRN Administration Nausea And Vomiting Pantoprazole Sodium 40 mg 10/15/19 10:00 10/26/19 10:00 Protonix IV 40 mg QDAY VERÓNICA Administration Simple Syrup 15 ml 10/20/19 10:37 Simple Syrup FEEDTUBE PRN PRN Hypoglycemia Simple Syrup 30 ml 10/20/19 10:37 Simple Syrup FEEDTUBE PRN PRN Hypoglycemia Sodium Bicarbonate 325 mg 10/20/19 10:37 Sodium Bicarbonate FEEDTUBE PRN PRN For Clogged Feeding Tube Sodium Chloride 10 ml 10/05/19 21:22 10/19/19 09:29 Sodium Chloride Flush Syringe 10 Ml IV 10 ml PRN PRN Administration LINE FLUSH Nutrition/Malnutrition Assess - Dietary Evaluation Nutrition/Malnutrition Findings: Nutrition Notes Start: 10/08/19 11:36 Freq: Status: Active Protocol: Document 10/26/19 09:50 CC (Rec: 10/26/19 09:57 CC [id number]) Co-Sign 10/26/19 09:50 LP Nutrition Notes Initial or Follow up Reassessment Current Diagnosis Acute Kidney Injury,COPD, Hypertension Other Pertinent Diagnosis intra-abdominal infection, disruption of bowel anastomosis, LE edema Current Diet CPN at 100 ml/hr + Vital AF 1. 2 at 10 ml/hr Labs/Tests K 3.5 Creat 0.5 Pertinent Medications reviewed Height 6 ft Weight 143 kg [place] Body Weight (kg) 80.90 BMI 42.7 Weight change and time frame Wt change noted. Likely due to fluids. Weight Status Morbidly Obese Subjective/Other Information CPN day 13. Vital AF running at 10 ml/hr at time of visit. Pt s/p extubation 10/25. Per MD report once normal gastric function resumes trickle TF will advance and when stable from resp. standpoint pt will be advanced to clear liquid diet. No lipids given d/t trig level too high per MD Percent of energy/protein needs met: 78%/83% Burn Absent Trauma Absent GI Symptoms None Current % PO Negligible Minimum of two criteria No Fluid Accumulation Mild (non-severe) #2 Nutrition Diagnosis Inadequate oral intake Diagnosis Progress(for reassessment Continues documentation) #1 Nutrition Diagnosis Increased nutrient needs ( specify in comment below) Diagnosis Progress(for reassessment Continues documentation) Is patient on ventilator? No Is Patient Ambulatory and/or Out of Bed No REE-([facility]-confined to bed) 2761.260 Kcal/Kg value to use for calculation 14 Approximate Energy Requirements Using 2002 kcal/Kg Calculation Used for Recommendations Kcal/kg Additional Notes Protein: 202g (up to 2.5 g/kg IBW 80.9 kg) Pay attention to renal issues Fluid: 1 ml/kcal or per MD Nutrition Intervention Change Diet Order: Continue CPN and trickle feeds Vital 1.2 at 10ml/hr Flush 50ml q6h Nutrition Support: CPN at 100ml/hr: MVI, 50mEq Phos, 250mEq K osmolarity 1173 Kcal 1,280 Protein (gm) 150 Carbohydrates (gm) 200 Fat (gm) 50 Fluid (mL) 2,400 Fiber (gm) 0 Goal #1 Meet energy and protein needs as best as possible via CPN and TF Goal #2 TF advancement Anticipated Discharge Needs: unable to determine at this time Follow-Up By: 10/27/19 Additional Comments Labs in AM: BMP, Mg, Phos Follow for TF tolerance, advancement
--- NOTE | 2019-10-26 17:15 | Progress Note ---
Assessment and Plan Cultures 10/10/2019 surgical culture: No growth at 72 hours 10/13/2019 tracheal aspirate culture: No growth 10/13/2019 peritoneal fluid: Enterococcus species (S to Penicillin, Vancomycin) 10/15/2019 blood culture: no growth Assessment: 54 yo M PMhx CAD, COPD, recent complicated course of bowel perforation after a colonoscopy admitted with surgical site dehiscence of the fascia. Now with: # Acute sepsis - present with leukocytosis and tachycardia. Most likely secondary to fluid collection/abscess in the abdomen and anastomotic leak. # New fevers: new fevers, persistent. will need to work up and start empiric abx. Has indwelling PICC, Whitfield. # Intra-abdominal infection from anastomotic leak - s/p ex lap with closure of abdominal wall and wound vac placement (10/05/2019); s/p Re-exploration, washout, transection of colon, Abthera placement - 10/13/2019. s/p re- exploration and colostomy creation on 10/16/2019, intra-operatively was found to have "Small amount of continued leak from the old anastomotic site. Some contamination still present. Bowel was all viable". Back on OR on 10/19/2019, findings "small leak from stump staple line". OR again on 10/22/2019 for: Abdominal washout. Closure of abdominal fascia. Wound vac placement. Findings, "contamination from the sigmoid stump closure site." # COPD, acute respiratory failure: on the vent. # Penicillin allergy - likely not a true allergy, reviewed EMR for previous exposure to PCNs, patient received several days of Zosyn in 2018 without issue. Recs: - new fevers, persistent. will need to work up and start empiric abx - blood culture, fungal blood culture, UA, urine culture, CXR ordered - remove Whitfield and then sent UA - given recent prolonged exposure to abx and TPN, at risk of MDR infections, will start empiric Meropenem and Micafungin I am covering the weekend. Julianna Pineda MD, FACP [facility] C: [phone] O: [phone] F: [phone] Subjective Date of service: 10/26/19 Principal diagnosis: acute renal failure Interval history: Extubated. New fevers, most recent is as high as 102.6F. On high flow oxygen. Reports SOB. Objective - Exam Narrative Exam: Physical Exam: Constitutional: awake, alert, tachypneic Head, Ears, Nose: Normocephalic, atraumatic. External ears, nose normal Eyes: Conjunctivae/corneas clear. No icterus. No ptosis. Neck: supple, no meningeal signs Oral: no thrush Cardiovascular: S1, S2 normal. Respiratory: rhonchi bilaterally GI: Midline abdominal VAC. bowel sounds +, Colostomy + drains + Musculoskeletal: anasarca, pedal edema + Skin: No rash or abscess Hem/Lymphatic: No palpable cervical or supraclavicular nodes. No lymphangitis Psych: no agitation Neurological: awake, alert - Constitutional Vitals: Vital Signs Temp Pulse Resp BP Pulse Ox 102.6 F H 88 38 H 175/74 98 10/26/19 16:00 10/26/19 14:00 10/26/19 14:00 10/26/19 14:00 10/26/19 11:00 Temperature -Last 24 Hours Temperature 102.6 F Temperature 101 F Temperature 98.9 F Temperature 102 F Temperature 99.2 F Temperature 98.9 F - Labs CBC & Chem 7: 10/25/19 04:19 10/26/19 06:15 Labs: Abnormal lab results 10/25/19 10/25/19 10/26/19 Range/Units 18:30 23:09 06:15 Potassium 3.5 L (3.6-5.0) mmol/L Creatinine 0.5 L (0.8-1.5) mg/dL Glucose 112 H (75-100) mg/dL POC Glucose 121 H 107 H (70-105) Calcium 8.3 L (8.4-10.2) mg/dL Alkaline Phosphatase 148 H (35-129) units/L Total Protein 5.9 L (6.3-8.2) g/dL Albumin 2.4 L (3.9-5) g/dL Triglycerides (2-149) mg/dL 10/26/19 10/26/19 Range/Units 06:15 12:21 Potassium (3.6-5.0) mmol/L Creatinine (0.8-1.5) mg/dL Glucose (75-100) mg/dL POC Glucose 134 H (70-105) Calcium (8.4-10.2) mg/dL Alkaline Phosphatase (35-129) units/L Total Protein (6.3-8.2) g/dL Albumin (3.9-5) g/dL Triglycerides 185 H (2-149) mg/dL
[2019-10-26] MEDS ORDERED: VANCOMYCIN 2,000 MG in SODIUM CHLORIDE 0.9% 500 ML 500 ML IV ONE (17:16)
[2019-10-26] MEDS: ACETAMINOPHEN 325 MG/10.15 ML ORAL LIQD UNIT DOSE FEEDTUBE PRN (17:23)
[2019-10-26] MEDS ORDERED: VANCOMYCIN PHARMACY TO DOSE IV SCH (18:00)
[2019-10-26 18:03] LABS: Bilirubin,Urine NEG (Negative); Blood,Urine NEG (Negative); Color,Urine Yellow (Yellow); Mucus,Urine FEW /HPF; Urobilinogen,Urine < 2.0 mg/dL (<2.0)
[2019-10-26] MEDS: MICAFUNGIN 100 MG in SODIUM CHLORIDE 0.9% 100 ML IV SCH (19:00)
[2019-10-26] MEDS: MEROPENEM/NS 1 GRAM/100 ML 1 GRAM/100 ML BAG IV SCH (19:00)
[2019-10-26] MEDS ORDERED: TOTAL PARENTERAL NUTRITION 2,400 ML IV SCH (20:00)
--- NOTE | 2019-10-26 20:39 | XRay Report ---
CHEST 1 VIEW INDICATION / CLINICAL INFORMATION: SOB. COMPARISON: 10/24/2019 FINDINGS: SUPPORT DEVICES: ET tube is been removed. Right-sided PICC line is stable in position. HEART / MEDIASTINUM: No significant abnormality. LUNGS / PLEURA: Interstitial pulmonary edema and bibasilar pleural-parenchymal disease are present an d not significantly changed. No pneumothorax. ADDITIONAL FINDINGS: No significant additional findings. IMPRESSION: 1. Interval extubation. The appearance of the chest radiograph is otherwise unchanged. Signer Name: Arlene Ferris MD Signed: 10/26/2019 8:35 PM Workstation Name: [id number]
[2019-10-26] MEDS: VANCOMYCIN 2,000 MG in SODIUM CHLORIDE 0.9% 500 ML 500 ML IV SCH (21:34)
[2019-10-26] MEDS: ENOXAPARIN 40 MG/0.4 ML INJ SUB-Q SCH (22:59)
[2019-10-27] MEDS: HYDROmorphone 2 MG/1 ML INJ IV PRN ×2 (00:50→04:40)
[2019-10-27] MEDS: MEROPENEM/NS 1 GRAM/100 ML 1 GRAM/100 ML BAG IV SCH ×3 (02:11→19:05)
[2019-10-27] MEDS: IPRATROPIUM/ALBUTEROL SULFATE 3 ML AMPUL.NEB IH SCH ×4 (02:52→19:19)
[2019-10-27] MEDS: VANCOMYCIN 2,000 MG in SODIUM CHLORIDE 0.9% 500 ML 500 ML IV SCH ×3 (04:44→21:53)
[2019-10-27] MEDS: INSULIN LISPRO 100 UNIT/ML SUB-Q SCH ×2 (05:00→12:24)
[2019-10-27] MEDS: METOPROLOL TARTRATE 50 MG TAB PO SCH ×3 (05:00→21:55)
[2019-10-27 05:18] LABS: BUN/Creatinine Ratio 38; Blood Urea Nitrogen 23 mg/dL (9-20); Calcium 7.9 mg/dL (8.4-10.2); Hemolysis Index 4
[2019-10-27] MEDS: BUDESONIDE 0.5 MG/2 ML NEBU IH SCH ×2 (07:19→19:19)
[2019-10-27] MEDS: ARFORMOTEROL 15 MCG/2 ML NEBU IH SCH ×2 (07:20→19:19)
[2019-10-27] MEDS: PANTOPRAZOLE 40 MG INJ IV SCH (10:08)
[2019-10-27] MEDS: AMIODARONE 200 MG TAB PO SCH (10:08)
[2019-10-27] MEDS: MICAFUNGIN 100 MG in SODIUM CHLORIDE 0.9% 100 ML IV SCH (10:35)
--- NOTE | 2019-10-27 11:11 | Progress Note ---
Assessment and Plan 1. Status post exploration treated laparotomy with bowel resection for perforated viscus 2. Sepsis 3. Paroxysmal atrial fibrillation 4. Coronary artery disease status post PCI left ventricular ejection fraction 45-50% 5. COPD 6. Essential hypertension 7. Hyperlipidemia Plan. Patient is stable cardiac-devries continue present cardiac medication. Subjective Date of service: 10/27/19 Principal diagnosis: acute renal failure Interval history: Alert in no distress no cardiac complains. Objective Vital Signs Temp Pulse Pulse Pulse Resp Resp Resp 10/27/19 09:01 102 H 39 H 10/27/19 08:01 86 35 H 10/27/19 08:00 100.3 F H 89 34 H 10/27/19 07:23 94 H 30 H 10/27/19 07:20 10/27/19 07:00 83 35 H 10/27/19 06:01 88 36 H 10/27/19 05:10 37 H 10/27/19 05:00 83 84 33 H 10/27/19 04:40 37 H 10/27/19 04:00 83 38 H 10/27/19 03:45 90 85 34 H 10/27/19 03:22 98.6 F 10/27/19 03:03 90 30 H 10/27/19 03:00 90 38 H 10/27/19 02:05 83 82 32 H 10/27/19 02:00 83 39 H 10/27/19 01:20 35 H 10/27/19 01:00 84 36 H 10/27/19 00:50 37 H 10/27/19 00:05 80 79 32 H 10/27/19 00:00 82 42 H 10/26/19 23:21 98.9 F 10/26/19 23:00 78 35 H 10/26/19 22:59 78 10/26/19 22:37 82 40 H 10/26/19 22:15 80 79 35 H 35 H 10/26/19 22:00 80 35 H 10/26/19 21:30 84 37 H 10/26/19 21:00 82 39 H 10/26/19 20:20 25 H 10/26/19 20:08 83 30 H 10/26/19 20:05 84 84 37 H 10/26/19 20:00 99.2 F 84 38 H 10/26/19 19:55 10/26/19 19:50 32 H 10/26/19 19:01 85 45 H 10/26/19 18:01 78 45 H 10/26/19 17:01 84 45 H 10/26/19 16:00 102.6 F H 89 89 44 H 10/26/19 15:00 86 31 H 10/26/19 14:00 85 88 45 H 38 H 10/26/19 13:00 85 42 H 10/26/19 12:00 101 F H 90 98 H 44 H BP Pulse Ox 10/27/19 09:01 134/70 94 10/27/19 08:01 153/78 95 10/27/19 08:00 92 10/27/19 07:23 10/27/19 07:20 97 10/27/19 07:00 163/76 92 10/27/19 06:01 163/76 93 10/27/19 05:10 10/27/19 05:00 157/68 91 10/27/19 04:40 10/27/19 04:00 168/75 94 10/27/19 03:45 94 10/27/19 03:22 10/27/19 03:03 10/27/19 03:00 142/73 92 10/27/19 02:05 94 10/27/19 02:00 155/80 93 10/27/19 01:20 10/27/19 01:00 152/74 93 10/27/19 00:50 10/27/19 00:05 94 10/27/19 00:00 170/68 93 10/26/19 23:21 10/26/19 23:00 153/72 93 10/26/19 22:59 155/73 10/26/19 22:37 155/73 94 10/26/19 22:15 94 10/26/19 22:00 155/75 94 10/26/19 21:30 94 10/26/19 21:00 144/67 92 10/26/19 20:20 10/26/19 20:08 10/26/19 20:05 94 10/26/19 20:00 163/80 97 10/26/19 19:55 96 10/26/19 19:50 10/26/19 19:01 158/80 84 10/26/19 18:01 146/69 97 10/26/19 17:01 166/108 96 10/26/19 16:00 179/79 97 10/26/19 15:00 186/66 97 10/26/19 14:00 182/74 97 10/26/19 13:00 182/83 97 10/26/19 12:00 171/78 97 - Physical Examination General: Appears Well, No Apparent Distress HEENT: Positive: PERRL Neck: Positive: trachea midline Cardiac: Positive: Regular Rate, S1/S2. Negative: S3, S4 Lungs: Positive: clear to auscultation, No Wheeze, Rales, Rhonchi Neuro: Positive: Weakness Abdomen: Positive: Other (abdominal wound vac is in place) Extremities: Present: +1 Edema. Absent: edema - Labs and Meds Comprehensive Metabolic Panel 10/27/19 Range/Units 04:30 Sodium 142 (137-145) mmol/L Potassium 3.2 L (3.6-5.0) mmol/L Chloride 99.6 (98-107) mmol/L Carbon Dioxide 26 (22-30) mmol/L BUN 23 H (9-20) mg/dL Creatinine 0.6 L (0.8-1.5) mg/dL Glucose 130 H (75-100) mg/dL Calcium 7.9 L (8.4-10.2) mg/dL
--- NOTE | 2019-10-27 11:25 | Progress Note ---
Assessment and Plan Assessment and plan: Sepsis, recurrent. Patient with new fevers that have been persistent. ID restarted antibiotics. Etiology likely secondary to fluid collection/abscess in the abdomen and anastomotic leak. Follow-up blood culture, fungal blood culture, UA, urine culture, CXR ordered. Whitfield was removed and urinalysis sent. Given recent prolonged exposure to abx and TPN, at risk of MDR infections, ID started empiric Meropenem and Micafungin Dehiscence of closure of fascia * Went to OR for ex lap with closure of abdominal wall and wound vac placement (10/05) * Continued to decline with possible Air vs fluid, 10/10/19 IR went in and placed two drains, Noted to have possible fecal material * Returned to the OR 10/13/19 due to concern for intra-abdominal infection and was found to have with heavy contamination of abdomen patent had disruption of bowel anastomosis, abdominal washout, abthera placement and colon stapled transection and left bowel enterotomy from anastomosis completely open * Returned to OR on 10/16/19 for abdominal washout, Partial Omentectomy, Partial Colectomy, Colostomy Creation and AbThera Placement * Abdominal washout and closure - 10/22 * cont wound care Acute Respiratory failure with hypoxia -Extubated 10/25/19 -Currently HFNC -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 Left lower lobe pneumonia -Continue IV antibiotic -CTA chest showed left lower lobe consolidation with pleural effusion GUILLERMO on CRF -probably ATN due to sepsis -Improving, will monitor -SPEP and UPEP pending -No hydronephrosis on CT -Whitfield in place, monitor I/O's Severe Metabolic acidosis -Improved Acute Toxic Metabolic Encephalopathy/Delirium Tremens -Started on CIWA protocol due to hx of ETOH abuse, 6packs a day -Head CT scan negative for acute findings Acute blood loss anemia -H/H stable -Continue to monitor H&H and transfuse for hb<7 SVT, Atrial fib/flutter with RVR -treated with adenosine x1 -off amiodarone and cardizem drip. On oral amiodarone and IV Lopressor. -HR currently controlled -Cardiology following Hypotension -Off esmolol drip -s/p IV fluid boluses, BP stable Hypophosphatemia -will monitor level Hx of Hypertension -Stable Hyperlipidemia -stable Atypical chest pain -probably secondary to pneumonitis -troponin levels neg Hx of UT/CAD -s/p PCI of the circumflex and second vessel POBA of the distal LAD occlusion. Left ventricle fraction of 45-50%. Morbid obesity with BMI of 45.4 -Lifestyle modification recommended COPD -Stable -cont neb tx Moderate Protein calorie malnutrition secondary to surgery -On TPN -Nutrition following Tobacco abuse -Cessation recommended Morbid obesity with BMI of 45.4 -Lifestyle modification recommended DVT and GI ppx: Lovenox/PPI Disp: Very poor prognosis. d/c per clinical course The high probability of a clinically significant, sudden or life threatening deterioration of the [respiratory] system(s) required my full and direct attention, intervention and personal management. The aggregate critical care time was [32] minutes. This time is in addition to time spent performing reported procedures but includes the following: [x] Data Review and interpretation [x] Patient assessment and monitoring of vital signs [x] Documentation [x] Medication orders and management History Interval history: Patient extubated on 10/25/19. Patient currently on HFNC Hospitalist Physical - Constitutional Vitals: Temp Pulse Resp BP Pulse Ox 100.3 F H 102 H 39 H 134/70 94 10/27/19 08:00 10/27/19 09:01 10/27/19 09:01 10/27/19 09:01 10/27/19 09:01 General appearance: Present: mild distress, well-nourished - EENT Eyes: Present: PERRL, EOM intact ENT: hearing intact, clear oral mucosa, dentition normal - Neck Neck: Present: supple, normal ROM - Respiratory Respiratory effort: normal Respiratory: bilateral: CTA - Cardiovascular Rhythm: regular Heart Sounds: Present: S1 & S2. Absent: gallop, rub - Extremities Extremities: no ischemia, No edema, Full ROM - Abdominal General gastrointestinal: soft, non-tender, non-distended, normal bowel sounds - Integumentary Integumentary: Present: clear, warm, dry - Neurologic Neurologic: CNII-XII intact, moves all extremities Results - Labs CBC & Chem 7: 10/25/19 04:19 10/27/19 04:30 Labs: Laboratory Last Values WBC 10.2 K/mm3 (4.5-11.0) 10/25/19 04:19 RBC 2.69 M/mm3 (3.65-5.03) L 10/25/19 04:19 Hgb 8.1 gm/dl (11.8-15.2) L 10/25/19 04:19 Hct 23.9 % (35.5-45.6) L 10/25/19 04:19 MCV 89 fl (84-94) 10/25/19 04:19 MCH 30 pg (28-32) 10/25/19 04:19 MCHC 34 % (32-34) 10/25/19 04:19 RDW 17.3 % (13.2-15.2) H 10/25/19 04:19 Plt Count 261 K/mm3 (140-440) 10/25/19 04:19 Lymph % (Auto) 7.0 % (13.4-35.0) L 10/24/19 05:05 [place] % (Auto) 9.5 % (0.0-7.3) H 10/24/19 05:05 Eos % (Auto) 0.6 % (0.0-4.3) 10/24/19 05:05 Baso % (Auto) 0.2 % (0.0-1.8) 10/24/19 05:05 Lymph # 0.9 K/mm3 (1.2-5.4) L 10/24/19 05:05 [place] # 1.2 K/mm3 (0.0-0.8) H 10/24/19 05:05 Eos # 0.1 K/mm3 (0.0-0.4) 10/24/19 05:05 Baso # 0.0 K/mm3 (0.0-0.1) 10/24/19 05:05 Add Manual Diff Complete 10/16/19 09:20 Total Counted 100 10/16/19 09:20 Seg Neutrophils % 82.7 % (40.0-70.0) H 10/24/19 05:05 Seg Neuts % (Manual) 79.0 % (40.0-70.0) H 10/16/19 09:20 Band Neutrophils % 12.0 % 10/16/19 09:20 Lymphocytes % (Manual) 4.0 % (13.4-35.0) L 10/16/19 09:20 Reactive Lymphs % (Man) 0 % 10/16/19 09:20 Monocytes % (Manual) 2.0 % (0.0-7.3) 10/16/19 09:20 Eosinophils % (Manual) 0 % (0.0-4.3) 10/16/19 09:20 Basophils % (Manual) 0 % (0.0-1.8) 10/16/19 09:20 Metamyelocytes % 2.0 % 10/16/19 09:20 Myelocytes % 1.0 % 10/16/19 09:20 Promyelocytes % 0 % 10/16/19 09:20 Blast Cells % 0 % 10/16/19 09:20 Nucleated RBC % Not Reportable 10/16/19 09:20 Seg Neutrophils # 10.7 K/mm3 (1.8-7.7) H 10/24/19 05:05 Seg Neutrophils # Man 11.5 K/mm3 (1.8-7.7) H 10/16/19 09:20 Band Neutrophils # 1.8 K/mm3 10/16/19 09:20 Lymphocytes # (Manual) 0.6 K/mm3 (1.2-5.4) L 10/16/19 09:20 Abs React Lymphs (Man) 0.0 K/mm3 10/16/19 09:20 Monocytes # (Manual) 0.3 K/mm3 (0.0-0.8) 10/16/19 09:20 Eosinophils # (Manual) 0.0 K/mm3 (0.0-0.4) 10/16/19 09:20 Basophils # (Manual) 0.0 K/mm3 (0.0-0.1) 10/16/19 09:20 Metamyelocytes # 0.3 K/mm3 10/16/19 09:20 Myelocytes # 0.1 K/mm3 10/16/19 09:20 Promyelocytes # 0.0 K/mm3 10/16/19 09:20 Blast Cells # 0.0 K/mm3 10/16/19 09:20 WBC Morphology Not Reportable 10/16/19 09:20 Hypersegmented Neuts Not Reportable 10/16/19 09:20 Hyposegmented Neuts Not Reportable 10/16/19 09:20 Hypogranular Neuts Not Reportable 10/16/19 09:20 Smudge Cells Not Reportable 10/16/19 09:20 Toxic Granulation Not Reportable 10/16/19 09:20 Toxic Vacuolation Not Reportable 10/16/19 09:20 Dohle Bodies Not Reportable 10/16/19 09:20 Pelger-Huet Anomaly Not Reportable 10/16/19 09:20 Andres Rods Not Reportable 10/16/19 09:20 Platelet Estimate Consistent w auto 10/16/19 09:20 Clumped Platelets Not Reportable 10/16/19 09:20 Plt Clumps, EDTA Not Reportable 10/16/19 09:20 Large Platelets Not Reportable 10/16/19 09:20 Giant Platelets Not Reportable 10/16/19 09:20 Platelet Satelliting Not Reportable 10/16/19 09:20 Plt Morphology Comment Not Reportable 10/16/19 09:20 RBC Morphology Not Reportable 10/16/19 09:20 Dimorphic RBCs Not Reportable 10/16/19 09:20 Polychromasia Few 10/16/19 09:20 Hypochromasia Few 10/16/19 09:20 Poikilocytosis Not Reportable 10/16/19 09:20 Anisocytosis Not Reportable 10/16/19 09:20 Microcytosis Not Reportable 10/16/19 09:20 Macrocytosis Not Reportable 10/16/19 09:20 Spherocytes Not Reportable 10/16/19 09:20 Pappenheimer Bodies Not Reportable 10/16/19 09:20 Sickle Cells Not Reportable 10/16/19 09:20 Target Cells Few 10/16/19 09:20 Tear Drop Cells Not Reportable 10/16/19 09:20 Ovalocytes Not Reportable 10/16/19 09:20 Helmet Cells Not Reportable 10/16/19 09:20 Varghese-Wiggins Bodies Not Reportable 10/16/19 09:20 [place] Rings Not Reportable 10/16/19 09:20 [place] Cells Not Reportable 10/16/19 09:20 Bite Cells Not Reportable 10/16/19 09:20 Crenated Cell Not Reportable 10/16/19 09:20 Elliptocytes Not Reportable 10/16/19 09:20 Acanthocytes (Spur) Not Reportable 10/16/19 09:20 Rouleaux Not Reportable 10/16/19 09:20 Hemoglobin C Crystals Not Reportable 10/16/19 09:20 Schistocytes Not Reportable 10/16/19 09:20 Malaria parasites Not Reportable 10/16/19 09:20 Toni Bodies Not Reportable 10/16/19 09:20 Hem Pathologist Commnt No 10/16/19 09:20 POC ABG pH 7.310 (7.35-7.45) L 10/17/19 05:41 ABG pH 7.390 pH Units (7.350-7.450) 10/23/19 04:47 POC ABG pCO2 52.8 (35-45) H 10/17/19 05:41 ABG pCO2 48.4 mm Hg 10/23/19 04:47 POC ABG pO2 70 (80-105) L 10/17/19 05:41 ABG pO2 68.9 mm Hg (80.0-90.0) L 10/23/19 04:47 POC ABG HCO3 26.6 (22-26 mml/L) 10/17/19 05:41 ABG HCO3 28.7 mmol/L (20.0-26.0) H 10/23/19 04:47 POC ABG Total CO2 28 (23-27mmol/L) 10/17/19 05:41 POC ABG O2 Sat 92 10/17/19 05:41 ABG O2 Saturation 96.6 % (95.0-99.0) 10/23/19 04:47 ABG O2 Content 8.8 (0.0-44) 10/23/19 04:47 POC ABG Base Excess 0 ((-2) - (+3)mmol/L) 10/17/19 05:41 ABG Base Excess 3.4 mmol/L (-2.0-3.0) H 10/23/19 04:47 ABG Hemoglobin 6.6 gm/dl (14.0-18.0) L 10/23/19 04:47 ABG Carboxyhemoglobin 2.1 % (0.0-5.0) 10/23/19 04:47 ABG Methemoglobin 0.5 % (0.0-1.5) 10/23/19 04:47 Oxyhemoglobin 94.1 % (95.0-99.0) L 10/23/19 04:47 FiO2 40 % 10/23/19 04:47 Sodium 142 mmol/L (137-145) 10/27/19 04:30 Potassium 3.2 mmol/L (3.6-5.0) L 10/27/19 04:30 Chloride 99.6 mmol/L (98-107) 10/27/19 04:30 Carbon Dioxide 26 mmol/L (22-30) 10/27/19 04:30 Anion Gap 20 mmol/L 10/27/19 04:30 BUN 23 mg/dL (9-20) H 10/27/19 04:30 Creatinine 0.6 mg/dL (0.8-1.5) L 10/27/19 04:30 Estimated GFR > 60 ml/min 10/27/19 04:30 BUN/Creatinine Ratio 38 % 10/27/19 04:30 Glucose 130 mg/dL (75-100) H 10/27/19 04:30 POC Glucose 100 (70-105) 10/27/19 05:04 Hemoglobin A1c 5.7 % (4-6) 10/06/19 05:36 Lactic Acid 1.10 mmol/L (0.7-2.0) 10/13/19 04:20 Calcium 7.9 mg/dL (8.4-10.2) L 10/27/19 04:30 Ionized Calcium 5.2 mg/dL (4.8-5.6) 10/18/19 07:41 Phosphorus 2.90 mg/dL (2.5-4.5) 10/27/19 04:30 Magnesium 2.00 mg/dL (1.7-2.3) 10/27/19 04:30 Total Bilirubin 1.10 mg/dL (0.1-1.2) 10/26/19 06:15 Direct Bilirubin 0.7 mg/dL (0-0.2) H 10/23/19 10:44 Indirect Bilirubin 0.1 mg/dL 10/23/19 10:44 AST 23 units/L (5-40) 10/26/19 06:15 ALT 13 units/L (7-56) 10/26/19 06:15 Alkaline Phosphatase 148 units/L (35-129) H 10/26/19 06:15 Ammonia 49.0 umol/L (25-60) 10/13/19 04:20 Troponin T < 0.010 ng/mL (0.00-0.029) 10/09/19 17:23 C-Reactive Protein 30.60 mg/dL (0.00-1.30) H 10/15/19 04:32 Serum Total Protein 5.2 g/dL (6.1-8.1) L 10/11/19 09:00 Total Protein 5.9 g/dL (6.3-8.2) L 10/26/19 06:15 Albumin 2.4 g/dL (3.9-5) L 10/26/19 06:15 Albumin/Globulin Ratio 0.7 % 10/26/19 06:15 Prealbumin 0.030 g/L (0.200-0.400) L 10/15/19 04:32 [id number] See scanned result 10/11/19 Unknown [id number]-[id number] See scanned result 10/11/19 Unknown Beta Globulins See scanned result 10/11/19 Unknown Gamma Globulins See scanned result 10/11/19 Unknown Abnorm Protein Band 1 see below 10/11/19 09:00 PEP Interpretation See scanned result 10/11/19 Unknown Triglycerides 185 mg/dL (2-149) H 10/26/19 06:15 Urine Color Yellow (Yellow) 10/26/19 Unknown Urine Turbidity Clear (Clear) 10/26/19 Unknown Urine pH 9.0 (5.0-7.0) H 10/26/19 Unknown Ur Specific [place] 1.011 (1.003-1.030) 10/26/19 Unknown Urine Protein 30 mg/dl mg/dL (Negative) 10/26/19 Unknown Urine Glucose (UA) Neg mg/dL (Negative) 10/26/19 Unknown Urine Ketones Neg mg/dL (Negative) 10/26/19 Unknown Urine Blood Neg (Negative) 10/26/19 Unknown Urine Nitrite Neg (Negative) 10/26/19 Unknown Urine Bilirubin Neg (Negative) 10/26/19 Unknown Urine Urobilinogen < 2.0 mg/dL (<2.0) 10/26/19 Unknown Ur Leukocyte Esterase Neg (Negative) 10/26/19 Unknown Urine WBC (Auto) 1.0 /HPF (0.0-6.0) 10/26/19 Unknown Urine RBC (Auto) 1.0 /HPF (0.0-6.0) 10/26/19 Unknown Urine Bacteria (Auto) 1+ /HPF (Negative) 10/11/19 06:23 Urine Mucus Few /HPF 10/26/19 Unknown Urine Eosinophils None seen (None Seen) 10/11/19 06:23 Ur Random Creatinine See scanned result 10/11/19 Unknown U Random Total Protein See scanned result 10/11/19 Unknown Urine Creatinine 116.8 mg/dL (0.1-20.0) H 10/11/19 06:23 Urine Creatinine 118.2 mg/dL (0.1-20.0) H 10/11/19 06:23 Protein/Creatinin Ratio See scanned result 10/11/19 Unknown Urine Sodium 14 mmol/L 10/11/19 06:23 Urine Total Protein 104 mg/dL (5-11.8) H 10/11/19 06:23 Urine Total Protein 105 mg/dL (5-11.8) H 10/11/19 06:23 U Abnormal Prot Band 1 See scanned result 10/11/19 Unknown U Abnormal Prot Band 2 See scanned result 10/11/19 Unknown U Abnormal Prot Band 3 See scanned result 10/11/19 Unknown Digoxin 0.7 ng/mL (0.9-2.0) L 10/19/19 04:21 Blood Type A POSITIVE 10/23/19 11:50 Antibody Screen Negative 10/23/19 11:50 Crossmatch See Detail 10/23/19 11:50 Active Medications - Current Medications Current Medications: Generic Name Dose Route Start Last Admin Trade Name Freq PRN Reason Stop Dose Admin Acetaminophen 650 mg 10/25/19 13:00 10/26/19 17:23 Tylenol FEEDTUBE 650 mg Q4H PRN Administration Fever >100.5 Albuterol 2.5 mg 10/05/19 21:36 Proventil IH Q4HRT PRN Shortness Of Breath Albuterol/Ipratropium 1 ampul 10/06/19 02:00 10/27/19 07:19 Duoneb *Not For Prn Use* IH 1 ampul Q6HRT VERÓNICA Administration Amiodarone HCl 200 mg 10/23/19 13:00 10/27/19 10:08 Cordarone PO 200 mg QDAY VERÓNICA Administration Lipase/Protease/Amylase 1 each 10/20/19 10:37 Pancreazanamika Moreno 10,500 Unit FEEDTUBE PRN PRN For Clogged Feeding Tube Arformoterol Tartrate 15 mcg 10/06/19 08:30 10/27/19 07:20 Brovana Nebu IH 15 mcg Q12HRT VERÓNICA Administration Budesonide 0.5 mg 10/07/19 12:20 10/27/19 07:19 Pulmicort IH 0.5 mg Q12HRT VERÓNICA Administration Citalopram Hydrobromide 20 mg 10/27/19 12:00 Celexa PO DAILY VERÓNICA Enoxaparin Sodium 40 mg 10/22/19 22:00 10/26/19 22:59 Enoxaparin SUB-Q 40 mg QDAY@2200 VERÓNICA Administration Fentanyl 50 mcg 10/25/19 12:35 Sublimaze IV Q2H PRN PAIN SCORE </=5 Haloperidol Lactate 5 mg 10/25/19 18:22 10/26/19 10:51 Haldol IV 5 mg Q6H PRN Administration Agitation Hydromorphone HCl 2 mg 10/25/19 12:35 10/27/19 04:40 Dilaudid IV 2 mg Q4H PRN Administration PAIN SCORE >/=6 Amino Acids/Electrolytes/Dextrose 2,400 mls @ 100 mls/hr 10/26/19 20:00 10/26/19 19:53 Tpn Adult IV 10/27/19 19:59 100 mls/hr DAILY@2000 [facility] Administration Protocol MEROPENEM/NS 1 GRAM/100 ML 1 gram in 100 mls @ 100 mls/hr 10/26/19 18:30 10/27/19 02:11 Merrem/Ns 1 Gram/100 Ml IV 100 mls/hr Q8H [facility] Administration Protocol Micafungin Sodium 100 mg/ 100 mls @ 100 mls/hr 10/26/19 18:30 10/27/19 10:35 Sodium Chloride IV 100 mls/hr QDAY [facility] Administration Protocol Vancomycin HCl 2,000 mg/ 540 mls @ 270 mls/hr 10/26/19 20:00 10/27/19 04:44 Sodium Chloride IV 270 mls/hr Q8H [facility] Administration Protocol Insulin Human Lispro 0 unit 10/14/19 12:00 10/27/19 05:00 Humalog SUB-Q Not Given Q6HR [facility] Protocol Metoprolol Tartrate 2.5 mg 10/15/19 15:34 10/18/19 00:05 Metoprolol IV 2.5 mg Q4HR PRN Administration HR >130 Metoprolol Tartrate 50 mg 10/25/19 14:00 10/27/19 05:00 Metoprolol PO 50 mg Q8HR VERÓNICA Administration Multi-Ingred Cream/Lotion/Oil/Oint 1 applic 10/14/19 02:19 Artificial Tears Ophth Oint OU Q4HR PRN Dry Eye(s) Ondansetron HCl 4 mg 10/05/19 21:22 10/11/19 18:20 Zofran IV 4 mg Q3H PRN Administration Nausea And Vomiting Pantoprazole Sodium 40 mg 10/15/19 10:00 10/27/19 10:08 Protonix IV 40 mg QDAY VERÓNICA Administration Simple Syrup 15 ml 10/20/19 10:37 Simple Syrup FEEDTUBE PRN PRN Hypoglycemia Simple Syrup 30 ml 10/20/19 10:37 Simple Syrup FEEDTUBE PRN PRN Hypoglycemia Sodium Bicarbonate 325 mg 10/20/19 10:37 Sodium Bicarbonate FEEDTUBE PRN PRN For Clogged Feeding Tube Sodium Chloride 10 ml 10/05/19 21:22 10/19/19 09:29 Sodium Chloride Flush Syringe 10 Ml IV 10 ml PRN PRN Administration LINE FLUSH Nutrition/Malnutrition Assess - Dietary Evaluation Nutrition/Malnutrition Findings: Nutrition Notes Start: 10/08/19 11:36 Freq: Status: Active Protocol: Document 10/27/19 09:05 MEGAN (Rec: 10/27/19 09:25 [id number]) Nutrition Notes Initial or Follow up Reassessment Current Diagnosis Acute Kidney Injury,COPD, Hypertension Other Pertinent Diagnosis intra-abdominal infection, disruption of bowel anastomosis, LE edema Current Diet CPN at 100 ml/hr + Vital AF 1. 2 at 10 ml/hr Labs/Tests K: 3.2 BUN: 23 Cr: 0.6 Pertinent Medications Duoneb Pulmicort Height 6 ft Weight 145 kg [place] Body Weight (kg) 80.90 BMI 43.3 Weight change and time frame Wt change noted. Likely due to fluids. Will use previous protein needs of 202g. Weight Status Morbidly Obese Subjective/Other Information CPN day 14. Vital AF running at 10 ml/hr at time of visit. Pt s/p extubation 10/25. Per MD report once normal gastric function resumes, trickle TF will advance and when stable from resp. standpoint pt will be advanced to clear liquid diet. RD spoke with PharmD, and it was decided to piggyback 40meq of K+ this AM in order to correct potassium. Percent of energy/protein needs met: 73%/71% Burn Absent Trauma Absent GI Symptoms None Current % PO Negligible Minimum of two criteria No Fluid Accumulation Mild (non-severe) #2 Nutrition Diagnosis Inadequate oral intake Diagnosis Progress(for reassessment Continues documentation) #1 Nutrition Diagnosis Increased nutrient needs ( specify in comment below) Diagnosis Progress(for reassessment Continues documentation) Is patient on ventilator? No Is Patient Ambulatory and/or Out of Bed No REE-([facility]-confined to bed) 2785.236 Kcal/Kg value to use for calculation 14 Approximate Energy Requirements Using 2030 kcal/Kg Calculation Used for Recommendations Kcal/kg Additional Notes Protein: 202g (up to 2.5 g/kg IBW 80.9 kg) Pay attention to renal issues Fluid: 1 ml/kcal or per MD Nutrition Intervention Change Diet Order: Continue CPN and trickle feeds Vital 1.2 at 10ml/hr Flush 50ml q6h Nutrition Support: CPN at 100ml/hr: MVI, 5.2% aminoacids, piggyback 40meq K osmolarity 1149 (including K piggayback) Kcal 1,468 Protein (gm) 143 Carbohydrates (gm) 227 Fat (gm) 0 Fluid (mL) 2,595 Fiber (gm) 0 Goal #1 Meet energy and protein needs as best as possible via CPN and TF Goal #2 TF advancement Anticipated Discharge Needs: unable to determine at this time Follow-Up By: 10/28/19 Additional Comments Labs in AM: BMP, Phos, Mg F/u for TF advancement
--- NOTE | 2019-10-27 11:44 | Progress Note ---
Assessment and Plan Cultures 10/10/2019 surgical culture: No growth at 72 hours 10/13/2019 tracheal aspirate culture: No growth 10/13/2019 peritoneal fluid: Enterococcus species (S to Penicillin, Vancomycin) 10/15/2019 blood culture: no growth 10/26/2019 urine culture: in process 10/26/2019 blood culture: in process Assessment: 54 yo M PMhx CAD, COPD, recent complicated course of bowel perforation after a colonoscopy admitted with surgical site dehiscence of the fascia. Now with: # Acute sepsis - present with leukocytosis and tachycardia. Most likely secondary to fluid collection/abscess in the abdomen and anastomotic leak. # New fevers: new fevers on 10/25 and 10/26. Ongoing work up and start empiric abx. Has indwelling PICC, Whitfield was removed 10/26. # Intra-abdominal infection from anastomotic leak - s/p ex lap with closure of abdominal wall and wound vac placement (10/05/2019); s/p Re-exploration, wash out, transection of colon, Abthera placement - 10/13/2019. s/p re-exploration and colostomy creation on 10/16/2019, intra-operatively was found to have "Small amount of continued leak from the old anastomotic site. Some contamination still present. Bowel was all viable". Back on OR on 10/19/2019, findings "small leak from stump staple line". OR again on 10/22/2019 for: Abdominal washout. Closure of abdominal fascia. Wound vac placement. Findings, "contamination from the sigmoid stump closure site." # COPD, acute respiratory failure: on the vent. # Penicillin allergy - likely not a true allergy, reviewed EMR for previous exposure to PCNs, patient received several days of Zosyn in 2018 without issue. Recs: - given recent prolonged exposure to abx and TPN, at risk of MDR infections, continue empiric Meropenem, Vancomycin and Micafungin - f/u blood culture, fungal blood culture. UA unremarkable. Whitfield was removed 10/26/2019. - will de-escalate at 48 hours depending on clinical course and cultures - monitor CBC I am covering the weekend. Julianna Pineda MD, FACP [facility] ([facility]) C: [phone] O: [phone] F: [phone] Subjective Date of service: 10/27/19 Principal diagnosis: acute renal failure Interval history: Remains stable off the vent. Awake, responding appropriately. Fevers also seem better. Continues on TPN. Whitfield out yesterday. Objective - Exam Narrative Exam: Physical Exam: Constitutional: awake, alert, no distress Head, Ears, Nose: Normocephalic, atraumatic. External ears, nose normal Eyes: Conjunctivae/corneas clear. No icterus. No ptosis. Neck: supple, no meningeal signs Oral: no thrush Cardiovascular: S1, S2 normal. Respiratory: rhonchi bilaterally GI: Midline abdominal VAC. bowel sounds +, Colostomy + drains + Musculoskeletal: anasarca, pedal edema + Skin: No rash or abscess Hem/Lymphatic: No palpable cervical or supraclavicular nodes. No lymphangitis Psych: no agitation Neurological: awake, alert - Constitutional Vitals: Vital Signs Temp Pulse Resp BP Pulse Ox 100.3 F H 91 H 40 H 151/76 90 10/27/19 08:00 10/27/19 11:01 10/27/19 11:01 10/27/19 11:01 10/27/19 11:01 Temperature -Last 24 Hours Temperature 100.3 F Temperature 98.6 F Temperature 98.9 F Temperature 99.2 F Temperature 102.6 F Temperature 101 F - Labs CBC & Chem 7: 10/25/19 04:19 10/27/19 04:30 Labs: Abnormal lab results 10/26/19 10/26/19 10/26/19 Range/Units 12:21 17:35 Unknown Potassium (3.6-5.0) mmol/L BUN (9-20) mg/dL Creatinine (0.8-1.5) mg/dL Glucose (75-100) mg/dL POC Glucose 134 H 141 H (70-105) Calcium (8.4-10.2) mg/dL Urine pH 9.0 H (5.0-7.0) 10/27/19 Range/Units 04:30 Potassium 3.2 L (3.6-5.0) mmol/L BUN 23 H (9-20) mg/dL Creatinine 0.6 L (0.8-1.5) mg/dL Glucose 130 H (75-100) mg/dL POC Glucose (70-105) Calcium 7.9 L (8.4-10.2) mg/dL Urine pH (5.0-7.0) - Imaging and cardiology Chest x-ray: report reviewed, image reviewed (b/l basal infiltrates / fluid overload)
--- NOTE | 2019-10-27 11:57 | Progress Note ---
Assessment and Plan 1) Dehiscence of closure of fascia, superficial or muscular Current Visit: No Status: Acute Qualifiers: Encounter type: initial encounter Qualified Code(s): T81.32XA - Disruption of internal operation (surgical) wound, not elsewhere classified, initial encounter Plan to address problem: Pt stable. s/p ex lap with closure of abdominal wall and wound vac placement (10/05) - POD#20; s/p Re-exploration, washout, transection of colon, Abthera placement - 10/13 - POD#12; s/p abd washout, partial omentectomy, partial colectomy with colostomy - 10/16 POD#10. s/p abd washout, feeding tube placement, AbThera placement - 10/19 - POD#7; Abdominal washout and closure - 10/22 - POD#5 Overall, patient looks stable. Drains have minimal, clear output. There is some staining of the tubing with old guardado material. Rec: 1) Neuro - Awake and appropriate. Mildly confused but can be redirected 2) CV - BP improved. 3) Resp - Extubated. On HFNC. Need to work on pulmonary toilet. 4) GI - Ostomy looks good and is now functioning. Sump drains and wound vac not consistent with previous fluid appearance when he has leaked. Sump drains are working properly. No obvious leak is seen today. The fluid that we are currently draining is becoming more clear, minimal in am ount.. We will continue to monitor closely. Ok to advance TF to 20cc/hr via Jejunal port as he is having ostomy funtion. Would not advance beyond 20cc/hr at this time. Gastric output is starting to lighten up. We may have resumption of normal function soon and then can advance tube feeds to goal. When stable from a respiratory standpoint, ok to start clear liquid diet. Would keep G-tube on suction as precaution until we start to see more function from the ostomy. 5) -monitor BUN/Cr - stable today 6) ID - Abx per ID. Enterococcus on cultures. + Fevers o/n. José cultures pending 7) Nutrition - TPN, TF at 20cc/hr via jejunal port 8) DVT prophylaxis - SCDs. Lovenox 9) Family - no family at bedside at this time 10) PT - will need rehab. Please call with questions. Subjective Date of service: 12/14/19 Narrative: Pt seen and examined. Has no complaints. Pain is controlled. Asking where he is. Having fever, Tm 100.3 today. No CP, SOB. Objective Vital Signs - 12hr 10/27/19 10/27/19 10/27/19 00:00 00:05 00:50 Temperature Pulse Rate 82 80 Pulse Rate [ Anterior Bilateral Throughout] Pulse Rate [ 79 From Monitor] Respiratory 42 H 32 H 37 H Rate Respiratory Rate [Anterior Bilateral Throughout] Blood Pressure 170/68 O2 Sat by Pulse 93 94 Oximetry 10/27/19 10/27/19 10/27/19 01:00 01:20 02:00 Temperature Pulse Rate 84 83 Pulse Rate [ Anterior Bilateral Throughout] Pulse Rate [ From Monitor] Respiratory 36 H 35 H 39 H Rate Respiratory Rate [Anterior Bilateral Throughout] Blood Pressure 152/74 155/80 O2 Sat by Pulse 93 93 Oximetry 10/27/19 10/27/19 10/27/19 02:05 03:00 03:03 Temperature Pulse Rate 83 90 Pulse Rate [ 90 Anterior Bilateral Throughout] Pulse Rate [ 82 From Monitor] Respiratory 32 H 38 H Rate Respiratory 30 H Rate [Anterior Bilateral Throughout] Blood Pressure 142/73 O2 Sat by Pulse 94 92 Oximetry 10/27/19 10/27/19 10/27/19 03:22 03:45 04:00 Temperature 98.6 F Pulse Rate 90 83 Pulse Rate [ Anterior Bilateral Throughout] Pulse Rate [ 85 From Monitor] Respiratory 34 H 38 H Rate Respiratory Rate [Anterior Bilateral Throughout] Blood Pressure 168/75 O2 Sat by Pulse 94 94 Oximetry 10/27/19 10/27/19 10/27/19 04:40 05:00 05:10 Temperature Pulse Rate 83 Pulse Rate [ Anterior Bilateral Throughout] Pulse Rate [ 84 From Monitor] Respiratory 37 H 33 H 37 H Rate Respiratory Rate [Anterior Bilateral Throughout] Blood Pressure 157/68 O2 Sat by Pulse 91 Oximetry 10/27/19 10/27/19 10/27/19 06:01 07:00 07:20 Temperature Pulse Rate 88 83 Pulse Rate [ Anterior Bilateral Throughout] Pulse Rate [ From Monitor] Respiratory 36 H 35 H Rate Respiratory Rate [Anterior Bilateral Throughout] Blood Pressure 163/76 163/76 O2 Sat by Pulse 93 92 97 Oximetry 10/27/19 10/27/19 10/27/19 07:23 08:00 08:01 Temperature 100.3 F H Pulse Rate 101 H 86 Pulse Rate [ 94 H Anterior Bilateral Throughout] Pulse Rate [ 89 From Monitor] Respiratory 34 H 35 H Rate Respiratory 30 H Rate [Anterior Bilateral Throughout] Blood Pressure 153/78 O2 Sat by Pulse 92 95 Oximetry 10/27/19 10/27/19 10/27/19 09:01 10:00 11:01 Temperature Pulse Rate 102 H 128 H 91 H Pulse Rate [ Anterior Bilateral Throughout] Pulse Rate [ From Monitor] Respiratory 39 H 38 H 40 H Rate Respiratory Rate [Anterior Bilateral Throughout] Blood Pressure 134/70 158/89 151/76 O2 Sat by Pulse 94 95 90 Oximetry - General physical appearance Narrative Exam: Gen: Awake and alert. NAD CV: s1, S2+ resp: CTAB, no w/r/r. Mildly labored - on high sherry NC Abd: soft, NT, ND. L sided ostomy pink with brown liquid stool in bag. Midline wound vac in place with good seal, no leak, serosang drainage in canister. L sump drain flushed with 10cc of saline and clear output. R sump drain flushed with 20 cc of saline with clear output. G-J tube in place with bilious output from G port and TF running through J port. Ext: + edema : de jesus with clear yellow urine - Labs 10/25/19 04:19 10/27/19 04:30 Diabetes panel 10/27/19 Range/Units 04:30 Sodium 142 (137-145) mmol/L Potassium 3.2 L (3.6-5.0) mmol/L Chloride 99.6 (98-107) mmol/L Carbon Dioxide 26 (22-30) mmol/L BUN 23 H (9-20) mg/dL Creatinine 0.6 L (0.8-1.5) mg/dL Glucose 130 H (75-100) mg/dL Calcium 7.9 L (8.4-10.2) mg/dL Calcium panel 10/27/19 Range/Units 04:30 Calcium 7.9 L (8.4-10.2) mg/dL Phosphorus 2.90 (2.5-4.5) mg/dL Pituitary panel 10/27/19 Range/Units 04:30 Sodium 142 (137-145) mmol/L Potassium 3.2 L (3.6-5.0) mmol/L Chloride 99.6 (98-107) mmol/L Carbon Dioxide 26 (22-30) mmol/L BUN 23 H (9-20) mg/dL Creatinine 0.6 L (0.8-1.5) mg/dL Glucose 130 H (75-100) mg/dL Calcium 7.9 L (8.4-10.2) mg/dL Adrenal panel 10/27/19 Range/Units 04:30 Sodium 142 (137-145) mmol/L Potassium 3.2 L (3.6-5.0) mmol/L Chloride 99.6 (98-107) mmol/L Carbon Dioxide 26 (22-30) mmol/L BUN 23 H (9-20) mg/dL Creatinine 0.6 L (0.8-1.5) mg/dL Glucose 130 H (75-100) mg/dL Calcium 7.9 L (8.4-10.2) mg/dL
[2019-10-27] MEDS: CITALOPRAM 20 MG TAB PO SCH (12:35)
[2019-10-27] MEDS: ACETAMINOPHEN 325 MG/10.15 ML ORAL LIQD UNIT DOSE FEEDTUBE PRN (15:56)
[2019-10-27] MEDS ORDERED: TOTAL PARENTERAL NUTRITION 2,400 ML IV SCH (20:00)
[2019-10-27] MEDS: ENOXAPARIN 40 MG/0.4 ML INJ SUB-Q SCH (21:54)
--- NOTE | 2019-10-27 23:22 | Progress Note ---
Assessment and Plan Imp: 1. Colon perforation/peritonitis/anastamotic leak s/p multiple surgeries 2. Sepsis 3. Acute respiratory failure, hypoxia 4. Obesity 5. KALI 6. Centrilobular emphysema, severe 7. Chronic nicotine dependence, cigarettes Rec: 1. ABX per ID 2. Wean HFNC to keep sats 88% or > 3. Cont. current nebs 4. Optimize nutrition; monitor elytes 5. DVT PPx 6. Stop smoking 7. Cont. ICU monitoring; will review office notes as I believe he should be on BIPAP QHS for KALI CCt 31 minutes No family present Subjective Date of service: 10/27/19 Principal diagnosis: acute renal failure Interval history: No events. Remains on HFNC at 30% FiO2. Somnolent but arouses and follows commands. + SOB which is a little better. Active Medications Acetaminophen (Tylenol) 650 mg FEEDTUBE Q4H PRN PRN Reason: Fever >100.5 Last Admin: 10/27/19 15:56 Dose: 650 mg Documented by: Albuterol (Proventil) 2.5 mg IH Q4HRT PRN PRN Reason: Shortness Of Breath Albuterol/Ipratropium (Duoneb *Not For Prn Use*) 1 ampul IH Q6HRT [facility] Last Admin: 10/27/19 19:19 Dose: 1 ampul Documented by: Amiodarone HCl (Cordarone) 200 mg PO QDAY [facility] Last Admin: 10/27/19 10:08 Dose: 200 mg Documented by: Lipase/Protease/Amylase ([place] [address] 10,500 Unit) 1 each FEEDTUBE PRN PRN PRN Reason: For Clogged Feeding Tube Arformoterol Tartrate (Brovana Nebu) 15 mcg IH Q12HRT [facility] Last Admin: 10/27/19 19:19 Dose: 15 mcg Documented by: Budesonide (Pulmicort) 0.5 mg IH Q12HRT [facility] Last Admin: 10/27/19 19:19 Dose: 0.5 mg Documented by: Citalopram Hydrobromide (Celexa) 20 mg PO DAILY [facility] Last Admin: 10/27/19 12:35 Dose: 20 mg Documented by: Enoxaparin Sodium (Enoxaparin) 40 mg SUB-Q QDAY@2200 [facility] Last Admin: 10/27/19 21:54 Dose: 40 mg Documented by: Fentanyl (Sublimaze) 50 mcg IV Q2H PRN PRN Reason: PAIN SCORE </=5 Haloperidol Lactate (Haldol) 5 mg IV Q6H PRN PRN Reason: Agitation Last Admin: 10/26/19 10:51 Dose: 5 mg Documented by: Hydromorphone HCl (Dilaudid) 2 mg IV Q4H PRN PRN Reason: PAIN SCORE >/=6 Last Admin: 10/27/19 04:40 Dose: 2 mg Documented by: MEROPENEM/NS 1 GRAM/100 ML (Merrem/Ns 1 Gram/100 Ml) 1 gram in 100 mls @ 100 mls/hr IV Q8H [facility]; Protocol Last Admin: 10/27/19 19:05 Dose: 100 mls/hr Documented by: Micafungin Sodium 100 mg/ (Sodium Chloride) 100 mls @ 100 mls/hr IV QDAY [facility]; Protocol Last Admin: 10/27/19 10:35 Dose: 100 mls/hr Documented by: Vancomycin HCl 2,000 mg/ (Sodium Chloride) 540 mls @ 270 mls/hr IV Q8H [facility]; Protocol Last Admin: 10/27/19 21:53 Dose: 270 mls/hr Documented by: Amino Acids/Electrolytes/Dextrose (Tpn Adult) 2,400 mls @ 100 mls/hr IV DAILY@2000 [facility]; Protocol Last Admin: 10/27/19 21:54 Dose: 100 mls/hr Documented by: Insulin Human Lispro (Humalog) 0 unit SUB-Q Q6HR [facility]; Protocol Last Admin: 10/27/19 12:24 Dose: Not Given Documented by: Metoprolol Tartrate (Metoprolol) 2.5 mg IV Q4HR PRN PRN Reason: HR >130 Last Admin: 10/18/19 00:05 Dose: 2.5 mg Documented by: Metoprolol Tartrate (Metoprolol) 50 mg PO Q8HR [facility] Last Admin: 10/27/19 21:55 Dose: 50 mg Documented by: Multi-Ingred Cream/Lotion/Oil/Oint (Artificial Tears Ophth Oint) 1 applic OU Q4HR PRN PRN Reason: Dry Eye(s) Ondansetron HCl (Zofran) 4 mg IV Q3H PRN PRN Reason: Nausea And Vomiting Last Admin: 10/11/19 18:20 Dose: 4 mg Documented by: Pantoprazole Sodium (Protonix) 40 mg IV QDAY [facility] Last Admin: 10/27/19 10:08 Dose: 40 mg Documented by: Simple Syrup (Simple Syrup) 15 ml FEEDTUBE PRN PRN PRN Reason: Hypoglycemia Simple Syrup (Simple Syrup) 30 ml FEEDTUBE PRN PRN PRN Reason: Hypoglycemia Sodium Bicarbonate (Sodium Bicarbonate) 325 mg FEEDTUBE PRN PRN PRN Reason: For Clogged Feeding Tube Sodium Chloride (Sodium Chloride Flush Syringe 10 Ml) 10 ml IV PRN PRN PRN Reason: LINE FLUSH Last Admin: 10/19/19 09:29 Dose: 10 ml Documented by: Objective Vital Signs - 12hr 10/27/19 10/27/19 10/27/19 12:00 12:01 13:00 Temperature 101.2 F H Pulse Rate 76 83 109 H Pulse Rate [ Anterior Bilateral Throughout] Pulse Rate [ 89 From Monitor] Respiratory 34 H 36 H 38 H Rate Respiratory Rate [Anterior Bilateral Throughout] Blood Pressure 159/75 172/83 O2 Sat by Pulse 92 96 97 Oximetry 10/27/19 10/27/19 10/27/19 13:46 14:00 14:01 Temperature Pulse Rate 110 H 110 H Pulse Rate [ 97 H Anterior Bilateral Throughout] Pulse Rate [ 83 From Monitor] Respiratory 34 H 38 H Rate Respiratory 38 H Rate [Anterior Bilateral Throughout] Blood Pressure 171/90 172/77 O2 Sat by Pulse 92 96 Oximetry 10/27/19 10/27/19 10/27/19 14:39 15:00 16:00 Temperature 102.1 F H Pulse Rate 81 80 Pulse Rate [ Anterior Bilateral Throughout] Pulse Rate [ 78 From Monitor] Respiratory 35 H 37 H Rate Respiratory Rate [Anterior Bilateral Throughout] Blood Pressure 160/75 176/80 O2 Sat by Pulse 96 97 91 Oximetry 10/27/19 10/27/19 10/27/19 17:00 18:00 18:01 Temperature Pulse Rate 82 86 Pulse Rate [ Anterior Bilateral Throughout] Pulse Rate [ 76 From Monitor] Respiratory 35 H 34 H 37 H Rate Respiratory Rate [Anterior Bilateral Throughout] Blood Pressure 165/72 172/89 O2 Sat by Pulse 94 92 97 Oximetry 10/27/19 10/27/19 10/27/19 19:00 19:21 19:48 Temperature Pulse Rate 98 H Pulse Rate [ 114 H Anterior Bilateral Throughout] Pulse Rate [ From Monitor] Respiratory 35 H Rate Respiratory 35 H Rate [Anterior Bilateral Throughout] Blood Pressure 167/80 O2 Sat by Pulse 97 94 Oximetry 10/27/19 10/27/19 10/27/19 20:00 20:52 21:00 Temperature 100.0 F H Pulse Rate 81 85 85 Pulse Rate [ Anterior Bilateral Throughout] Pulse Rate [ From Monitor] Respiratory 38 H 35 H Rate Respiratory Rate [Anterior Bilateral Throughout] Blood Pressure 158/80 153/84 O2 Sat by Pulse 93 94 Oximetry 10/27/19 21:55 Temperature Pulse Rate 104 H Pulse Rate [ Anterior Bilateral Throughout] Pulse Rate [ From Monitor] Respiratory Rate Respiratory Rate [Anterior Bilateral Throughout] Blood Pressure 165/55 O2 Sat by Pulse Oximetry Constitutional: alert, other (critically ill on HFNC) Eyes: non-icteric ENT: oropharynx moist Neck: supple Effort: mildly labored Ascultation: Bilateral: diminished breath sounds (bases) Cardiovascular: regular rate and rhythm (no mrg) Gastrointestinal: tender, other (obese, distended) Integumentary: normal Extremities: no cyanosis, pink and warm, edema (1+ bilateral LE edema) Neurologic: normal mental status, non-focal exam, pupils equal and round Psychiatric: mood appropriate, affect normal CBC and BMP: 10/25/19 04:19 10/27/19 04:30 ABG, PT/INR, D-dimer: ABG POC ABG pH 7.310 (7.35-7.45) L 10/17/19 05:41 ABG pH 7.390 pH Units (7.350-7.450) 10/23/19 04:47 POC ABG pCO2 52.8 (35-45) H 10/17/19 05:41 ABG pCO2 48.4 mm Hg 10/23/19 04:47 POC ABG pO2 70 (80-105) L 10/17/19 05:41 ABG pO2 68.9 mm Hg (80.0-90.0) L 10/23/19 04:47 POC ABG HCO3 26.6 (22-26 mml/L) 10/17/19 05:41 POC ABG Total CO2 28 (23-27mmol/L) 10/17/19 05:41 POC ABG O2 Sat 92 10/17/19 05:41 ABG O2 Saturation 96.6 % (95.0-99.0) 10/23/19 04:47 Abnormal lab findings: Abnormal Labs 10/06/19 10/06/19 10/07/19 05:36 05:36 05:54 WBC 21.8 H 21.5 H RBC 3.55 L Hgb 10.9 L Hct 32.7 L RDW Plt Count Lymph % (Auto) [place] % (Auto) Lymph # [place] # Seg Neutrophils % Seg Neuts % (Manual) 91.0 H Lymphocytes % (Manual) 2.0 L Seg Neutrophils # Seg Neutrophils # Man 19.8 H Lymphocytes # (Manual) 0.4 L Monocytes # (Manual) 1.1 H POC ABG pH ABG pH POC ABG pCO2 POC ABG pO2 ABG pO2 ABG HCO3 ABG Base Excess ABG Hemoglobin Oxyhemoglobin Sodium 135 L Potassium Chloride 95.9 L Carbon Dioxide BUN Creatinine 0.7 L Glucose POC Glucose Calcium Phosphorus Magnesium Direct Bilirubin AST Alkaline Phosphatase C-Reactive Protein Serum Total Protein Total Protein 5.7 L Albumin 2.5 L Prealbumin Nezch-2-Rkuetighi Xegxn-3-Uglbpiyhq Gamma Globulins PEP Interpretation Triglycerides Urine pH Urine Creatinine Urine Total Protein Digoxin Crossmatch 10/07/19 10/09/19 10/09/19 05:54 10:52 10:52 WBC 16.6 H RBC Hgb Hct RDW Plt Count 498 H Lymph % (Auto) [place] % (Auto) Lymph # [place] # Seg Neutrophils % Seg Neuts % (Manual) 93.0 H Lymphocytes % (Manual) 5.0 L Seg Neutrophils # Seg Neutrophils # Man 15.4 H Lymphocytes # (Manual) 0.8 L Monocytes # (Manual) POC ABG pH ABG pH POC ABG pCO2 POC ABG pO2 ABG pO2 ABG HCO3 ABG Base Excess ABG Hemoglobin Oxyhemoglobin Sodium Potassium Chloride 97.9 L Carbon Dioxide 20 L D BUN 23 H Creatinine 1.7 H D Glucose 109 H POC Glucose Calcium 8.1 L Phosphorus Magnesium Direct Bilirubin AST Alkaline Phosphatase C-Reactive Protein Serum Total Protein Total Protein Albumin Prealbumin Dphyl-9-Hvnsemsaw Twmdy-9-Ljoydhmwo Gamma Globulins PEP Interpretation Triglycerides Urine pH Urine Creatinine Urine Total Protein Digoxin Crossmatch 10/09/19 10/10/19 10/10/19 17:23 05:30 05:30 WBC 14.6 H RBC Hgb 11.1 L Hct 33.5 L RDW Plt Count 527 H Lymph % (Auto) [place] % (Auto) Lymph # [place] # Seg Neutrophils % Seg Neuts % (Manual) Lymphocytes % (Manual) Seg Neutrophils # Seg Neutrophils # Man Lymphocytes # (Manual) Monocytes # (Manual) POC ABG pH ABG pH POC ABG pCO2 POC ABG pO2 ABG pO2 ABG HCO3 ABG Base Excess ABG Hemoglobin Oxyhemoglobin Sodium 130 L D Potassium 5.1 H Chloride 90.0 L 91.0 L Carbon Dioxide 20 L 20 L BUN 27 H 35 H Creatinine 1.9 H 2.0 H Glucose 104 H POC Glucose Calcium Phosphorus Magnesium Direct Bilirubin AST Alkaline Phosphatase C-Reactive Protein Serum Total Protein Total Protein Albumin Prealbumin Ozofr-0-Kzeerxlrv Jkhuk-4-Zauawdhpl Gamma Globulins PEP Interpretation Triglycerides Urine pH Urine Creatinine Urine Total Protein Digoxin Crossmatch 10/10/19 10/10/19 10/11/19 08:33 08:44 05:41 WBC 13.2 H RBC Hgb 11.3 L Hct 33.8 L RDW 15.3 H Plt Count 543 H Lymph % (Auto) [place] % (Auto) Lymph # [place] # Seg Neutrophils % Seg Neuts % (Manual) Lymphocytes % (Manual) Seg Neutrophils # Seg Neutrophils # Man Lymphocytes # (Manual) Monocytes # (Manual) POC ABG pH ABG pH POC ABG pCO2 POC ABG pO2 ABG pO2 ABG HCO3 ABG Base Excess ABG Hemoglobin Oxyhemoglobin Sodium Potassium Chloride Carbon Dioxide BUN Creatinine Glucose 113 H POC Glucose 117 H Calcium Phosphorus Magnesium Direct Bilirubin AST Alkaline Phosphatase C-Reactive Protein Serum Total Protein Total Protein Albumin Prealbumin Ylinl-2-Ncyzphmnn Ovlrr-0-Oxtwdezvd Gamma Globulins PEP Interpretation Triglycerides Urine pH Urine Creatinine Urine Total Protein Digoxin Crossmatch 10/11/19 10/11/19 10/11/19 05:41 06:23 06:23 WBC RBC Hgb Hct RDW Plt Count Lymph % (Auto) [place] % (Auto) Lymph # [place] # Seg Neutrophils % Seg Neuts % (Manual) Lymphocytes % (Manual) Seg Neutrophils # Seg Neutrophils # Man Lymphocytes # (Manual) Monocytes # (Manual) POC ABG pH ABG pH POC ABG pCO2 POC ABG pO2 ABG pO2 ABG HCO3 ABG Base Excess ABG Hemoglobin Oxyhemoglobin Sodium 134 L Potassium Chloride 96.3 L Carbon Dioxide BUN 37 H Creatinine Glucose 58 L POC Glucose Calcium Phosphorus 4.90 H Magnesium Direct Bilirubin AST Alkaline Phosphatase C-Reactive Protein Serum Total Protein Total Protein Albumin Prealbumin Igxwt-0-Chexjtsii Zywpr-1-Rutaraley Gamma Globulins PEP Interpretation Triglycerides Urine pH Urine Creatinine 118.2 H 116.8 H Urine Total Protein 105 H 104 H Digoxin Crossmatch 10/11/19 10/12/19 10/12/19 09:00 06:09 06:09 WBC 13.8 H RBC 3.39 L Hgb 10.2 L Hct 30.9 L RDW 15.5 H Plt Count 459 H Lymph % (Auto) [place] % (Auto) Lymph # [place] # Seg Neutrophils % Seg Neuts % (Manual) Lymphocytes % (Manual) Seg Neutrophils # Seg Neutrophils # Man Lymphocytes # (Manual) Monocytes # (Manual) POC ABG pH ABG pH POC ABG pCO2 POC ABG pO2 ABG pO2 ABG HCO3 ABG Base Excess ABG Hemoglobin Oxyhemoglobin Sodium 131 L Potassium Chloride 96.2 L Carbon Dioxide 21 L BUN 43 H Creatinine Glucose 72 L POC Glucose Calcium Phosphorus Magnesium Direct Bilirubin AST Alkaline Phosphatase C-Reactive Protein Serum Total Protein 5.2 L Total Protein Albumin 1.9 L Prealbumin Jumkv-8-Upooceyzj 0.9 H Vswzi-2-Kilfgnwvf 1.0 H Gamma Globulins 0.7 L PEP Interpretation see below H Triglycerides Urine pH Urine Creatinine Urine Total Protein Digoxin Crossmatch 10/12/19 10/12/19 10/12/19 08:20 09:30 09:30 WBC RBC Hgb Hct RDW Plt Count Lymph % (Auto) [place] % (Auto) Lymph # [place] # Seg Neutrophils % Seg Neuts % (Manual) Lymphocytes % (Manual) Seg Neutrophils # Seg Neutrophils # Man Lymphocytes # (Manual) Monocytes # (Manual) POC ABG pH ABG pH POC ABG pCO2 POC ABG pO2 63 L ABG pO2 ABG HCO3 ABG Base Excess ABG Hemoglobin Oxyhemoglobin Sodium Potassium Chloride Carbon Dioxide BUN Creatinine Glucose POC Glucose Calcium Phosphorus Magnesium 2.50 H Direct Bilirubin 0.3 H AST Alkaline Phosphatase C-Reactive Protein Serum Total Protein Total Protein 5.1 L Albumin 2.2 L Prealbumin Djdyx-3-Vtefcqcgt Thbqb-6-Nnwtbjduz Gamma Globulins PEP Interpretation Triglycerides Urine pH Urine Creatinine Urine Total Protein Digoxin Crossmatch 10/13/19 10/13/19 10/13/19 04:20 04:20 13:20 WBC 15.7 H RBC 3.64 L Hgb 10.9 L Hct 33.1 L RDW 15.8 H Plt Count 488 H Lymph % (Auto) [place] % (Auto) Lymph # [place] # Seg Neutrophils % Seg Neuts % (Manual) Lymphocytes % (Manual) Seg Neutrophils # Seg Neutrophils # Man Lymphocytes # (Manual) Monocytes # (Manual) POC ABG pH ABG pH POC ABG pCO2 POC ABG pO2 ABG pO2 ABG HCO3 ABG Base Excess ABG Hemoglobin Oxyhemoglobin Sodium Potassium Chloride Carbon Dioxide BUN 28 H Creatinine Glucose POC Glucose Calcium Phosphorus Magnesium Direct Bilirubin AST Alkaline Phosphatase C-Reactive Protein Serum Total Protein Total Protein Albumin Prealbumin [place]-3-Mupzzexll Qzbjb-0-Ulpouvvrv Gamma Globulins PEP Interpretation Triglycerides Urine pH Urine Creatinine Urine Total Protein Digoxin Crossmatch See Detail 10/13/19 10/13/19 10/14/19 18:24 20:05 04:47 WBC 24.2 H RBC Hgb 10.9 L Hct 34.2 L RDW 17.0 H Plt Count 442 H Lymph % (Auto) [place] % (Auto) Lymph # [place] # Seg Neutrophils % Seg Neuts % (Manual) Lymphocytes % (Manual) Seg Neutrophils # Seg Neutrophils # Man Lymphocytes # (Manual) Monocytes # (Manual) POC ABG pH ABG pH 7.180 L* 7.278 L POC ABG pCO2 POC ABG pO2 ABG pO2 130.7 H ABG HCO3 ABG Base Excess -6.5 L -6.5 L ABG Hemoglobin 12.2 L 12.3 L Oxyhemoglobin 92.9 L Sodium Potassium Chloride Carbon Dioxide BUN Creatinine Glucose POC Glucose Calcium Phosphorus Magnesium Direct Bilirubin AST Alkaline Phosphatase C-Reactive Protein Serum Total Protein Total Protein Albumin Prealbumin Csjpc-7-Hkjkhtdzg Ubjrn-7-Yhdzexlyo Gamma Globulins PEP Interpretation Triglycerides Urine pH Urine Creatinine Urine Total Protein Digoxin Crossmatch 10/14/19 10/14/19 10/14/19 04:47 05:40 10:14 WBC RBC Hgb Hct RDW Plt Count Lymph % (Auto) [place] % (Auto) Lymph # [place] # Seg Neutrophils % Seg Neuts % (Manual) Lymphocytes % (Manual) Seg Neutrophils # Seg Neutrophils # Man Lymphocytes # (Manual) Monocytes # (Manual) POC ABG pH ABG pH POC ABG pCO2 POC ABG pO2 ABG pO2 76.3 L ABG HCO3 19.1 L ABG Base Excess -5.8 L ABG Hemoglobin 10.9 L Oxyhemoglobin 93.4 L Sodium Potassium 5.1 H D Chloride 109.2 H Carbon Dioxide 17 L BUN 38 H Creatinine 1.8 H D Glucose 104 H POC Glucose Calcium 7.4 L Phosphorus 5.60 H Magnesium Direct Bilirubin AST Alkaline Phosphatase C-Reactive Protein Serum Total Protein Total Protein Albumin Prealbumin Owowd-2-Rnmpncfoh Xauxe-8-Ogvvsdhdw Gamma Globulins PEP Interpretation Triglycerides Urine pH Urine Creatinine Urine Total Protein Digoxin Crossmatch 10/14/19 10/15/19 10/15/19 23:46 04:32 04:32 WBC 15.5 H RBC 2.89 L Hgb 8.8 L Hct 27.3 L D RDW 16.6 H Plt Count Lymph % (Auto) [place] % (Auto) Lymph # [place] # Seg Neutrophils % Seg Neuts % (Manual) Lymphocytes % (Manual) Seg Neutrophils # Seg Neutrophils # Man Lymphocytes # (Manual) Monocytes # (Manual) POC ABG pH ABG pH POC ABG pCO2 POC ABG pO2 ABG pO2 ABG HCO3 ABG Base Excess ABG Hemoglobin Oxyhemoglobin Sodium 147 H Potassium Chloride 114.0 H Carbon Dioxide 19 L BUN 42 H Creatinine Glucose 112 H POC Glucose 113 H Calcium 7.3 L Phosphorus Magnesium Direct Bilirubin AST 72 H Alkaline Phosphatase C-Reactive Protein 30.60 H Serum Total Protein Total Protein 4.0 L D Albumin 1.7 L Prealbumin 0.030 L Axgnu-2-Hgwpqkgkl Sozwf-2-Gptjqctjd Gamma Globulins PEP Interpretation Triglycerides Urine pH Urine Creatinine Urine Total Protein Digoxin Crossmatch 10/15/19 10/15/19 10/15/19 05:30 12:08 17:23 WBC RBC Hgb Hct RDW Plt Count Lymph % (Auto) [place] % (Auto) Lymph # [place] # Seg Neutrophils % Seg Neuts % (Manual) Lymphocytes % (Manual) Seg Neutrophils # Seg Neutrophils # Man Lymphocytes # (Manual) Monocytes # (Manual) POC ABG pH ABG pH 7.296 L POC ABG pCO2 POC ABG pO2 ABG pO2 114.7 H ABG HCO3 ABG Base Excess -3.7 L ABG Hemoglobin 8.9 L Oxyhemoglobin Sodium Potassium Chloride Carbon Dioxide BUN Creatinine Glucose POC Glucose 106 H 106 H Calcium Phosphorus Magnesium Direct Bilirubin AST Alkaline Phosphatase C-Reactive Protein Serum Total Protein Total Protein Albumin Prealbumin Iyemv-9-Dpkplnffm Eanhp-5-Yplattauw Gamma Globulins PEP Interpretation Triglycerides Urine pH Urine Creatinine Urine Total Protein Digoxin Crossmatch 10/16/19 10/16/19 10/16/19 00:07 04:44 05:24 WBC RBC Hgb Hct RDW Plt Count Lymph % (Auto) [place] % (Auto) Lymph # [place] # Seg Neutrophils % Seg Neuts % (Manual) Lymphocytes % (Manual) Seg Neutrophils # Seg Neutrophils # Man Lymphocytes # (Manual) Monocytes # (Manual) POC ABG pH ABG pH POC ABG pCO2 POC ABG pO2 ABG pO2 ABG HCO3 ABG Base Excess ABG Hemoglobin Oxyhemoglobin Sodium 150 H Potassium Chloride 115.8 H Carbon Dioxide BUN 35 H Creatinine Glucose 129 H POC Glucose 119 H 129 H Calcium 7.3 L Phosphorus 1.80 L D Magnesium Direct Bilirubin AST Alkaline Phosphatase C-Reactive Protein Serum Total Protein Total Protein Albumin Prealbumin Kchzr-6-Pncvbqlrh Amztm-0-Fwdrrjmed Gamma Globulins PEP Interpretation Triglycerides Urine pH Urine Creatinine Urine Total Protein Digoxin Crossmatch 10/16/19 10/16/19 10/16/19 06:53 09:20 11:58 WBC 14.6 H RBC 2.70 L Hgb 8.1 L Hct 25.2 L RDW 16.7 H Plt Count Lymph % (Auto) [place] % (Auto) Lymph # [place] # Seg Neutrophils % Seg Neuts % (Manual) 79.0 H Lymphocytes % (Manual) 4.0 L Seg Neutrophils # Seg Neutrophils # Man 11.5 H Lymphocytes # (Manual) 0.6 L Monocytes # (Manual) POC ABG pH ABG pH POC ABG pCO2 47.0 H POC ABG pO2 ABG pO2 ABG HCO3 ABG Base Excess ABG Hemoglobin Oxyhemoglobin Sodium Potassium Chloride Carbon Dioxide BUN Creatinine Glucose POC Glucose Calcium Phosphorus Magnesium Direct Bilirubin AST Alkaline Phosphatase C-Reactive Protein Serum Total Protein Total Protein Albumin Prealbumin Rcnnx-9-Vtndhzyqq Zrpew-2-Xovszlkim Gamma Globulins PEP Interpretation Triglycerides Urine pH Urine Creatinine Urine Total Protein Digoxin Crossmatch See Detail 10/16/19 10/16/19 10/16/19 15:23 17:50 23:58 WBC RBC Hgb Hct RDW Plt Count Lymph % (Auto) [place] % (Auto) Lymph # [place] # Seg Neutrophils % Seg Neuts % (Manual) Lymphocytes % (Manual) Seg Neutrophils # Seg Neutrophils # Man Lymphocytes # (Manual) Monocytes # (Manual) POC ABG pH ABG pH POC ABG pCO2 POC ABG pO2 ABG pO2 ABG HCO3 ABG Base Excess ABG Hemoglobin Oxyhemoglobin Sodium Potassium Chloride Carbon Dioxide BUN Creatinine Glucose POC Glucose 221 H 201 H 179 H Calcium Phosphorus Magnesium Direct Bilirubin AST Alkaline Phosphatase C-Reactive Protein Serum Total Protein Total Protein Albumin Prealbumin Czpeb-5-Eyehauzkr Reoor-7-Ovxwfqmef Gamma Globulins PEP Interpretation Triglycerides Urine pH Urine Creatinine Urine Total Protein Digoxin Crossmatch 10/17/19 10/17/19 10/17/19 04:08 04:08 05:41 WBC 22.3 H RBC 3.35 L Hgb 10.0 L Hct 31.2 L D RDW 16.1 H Plt Count Lymph % (Auto) [place] % (Auto) Lymph # [place] # Seg Neutrophils % Seg Neuts % (Manual) Lymphocytes % (Manual) Seg Neutrophils # Seg Neutrophils # Man Lymphocytes # (Manual) Monocytes # (Manual) POC ABG pH 7.310 L ABG pH POC ABG pCO2 52.8 H POC ABG pO2 70 L ABG pO2 ABG HCO3 ABG Base Excess ABG Hemoglobin Oxyhemoglobin Sodium 147 H Potassium Chloride 114.9 H Carbon Dioxide BUN 36 H Creatinine Glucose 165 H POC Glucose Calcium 6.9 L Phosphorus 2.20 L D Magnesium Direct Bilirubin AST Alkaline Phosphatase C-Reactive Protein Serum Total Protein Total Protein Albumin Prealbumin Ujywo-1-Biusvdesz Xcpiv-0-Clxasvxrp Gamma Globulins PEP Interpretation Triglycerides Urine pH Urine Creatinine Urine Total Protein Digoxin Crossmatch 10/17/19 10/17/19 10/17/19 05:42 11:33 18:17 WBC RBC Hgb Hct RDW Plt Count Lymph % (Auto) [place] % (Auto) Lymph # [place] # Seg Neutrophils % Seg Neuts % (Manual) Lymphocytes % (Manual) Seg Neutrophils # Seg Neutrophils # Man Lymphocytes # (Manual) Monocytes # (Manual) POC ABG pH ABG pH POC ABG pCO2 POC ABG pO2 ABG pO2 ABG HCO3 ABG Base Excess ABG Hemoglobin Oxyhemoglobin Sodium Potassium Chloride Carbon Dioxide BUN Creatinine Glucose POC Glucose 149 H 154 H 163 H Calcium Phosphorus Magnesium Direct Bilirubin AST Alkaline Phosphatase C-Reactive Protein Serum Total Protein Total Protein Albumin Prealbumin Ttqmk-2-Osehgfdab Gwsqk-8-Mkjffljom Gamma Globulins PEP Interpretation Triglycerides Urine pH Urine Creatinine Urine Total Protein Digoxin Crossmatch 10/17/19 10/18/19 10/18/19 23:34 03:29 04:50 WBC RBC Hgb Hct RDW Plt Count Lymph % (Auto) [place] % (Auto) Lymph # [place] # Seg Neutrophils % Seg Neuts % (Manual) Lymphocytes % (Manual) Seg Neutrophils # Seg Neutrophils # Man Lymphocytes # (Manual) Monocytes # (Manual) POC ABG pH ABG pH POC ABG pCO2 POC ABG pO2 ABG pO2 78.8 L ABG HCO3 ABG Base Excess ABG Hemoglobin 8.8 L Oxyhemoglobin Sodium Potassium Chloride 111.8 H Carbon Dioxide BUN 27 H Creatinine 0.6 L Glucose 140 H POC Glucose 135 H Calcium 7.1 L Phosphorus 1.80 L Magnesium Direct Bilirubin AST Alkaline Phosphatase C-Reactive Protein Serum Total Protein Total Protein Albumin Prealbumin Xfnth-7-Fsioysdgg Rkofc-5-Eefhufqej Gamma Globulins PEP Interpretation Triglycerides Urine pH Urine Creatinine Urine Total Protein Digoxin Crossmatch 10/18/19 10/18/19 10/18/19 05:45 11:19 18:26 WBC RBC Hgb Hct RDW Plt Count Lymph % (Auto) [place] % (Auto) Lymph # [place] # Seg Neutrophils % Seg Neuts % (Manual) Lymphocytes % (Manual) Seg Neutrophils # Seg Neutrophils # Man Lymphocytes # (Manual) Monocytes # (Manual) POC ABG pH ABG pH POC ABG pCO2 POC ABG pO2 ABG pO2 ABG HCO3 ABG Base Excess ABG Hemoglobin Oxyhemoglobin Sodium Potassium Chloride Carbon Dioxide BUN Creatinine Glucose POC Glucose 145 H 152 H 125 H Calcium Phosphorus Magnesium Direct Bilirubin AST Alkaline Phosphatase C-Reactive Protein Serum Total Protein Total Protein Albumin Prealbumin Vuprm-0-Xfppxfzro Fkioe-2-Yozzkgdnn Gamma Globulins PEP Interpretation Triglycerides Urine pH Urine Creatinine Urine Total Protein Digoxin Crossmatch 10/18/19 10/19/19 10/19/19 23:27 04:21 04:21 WBC RBC Hgb Hct RDW Plt Count Lymph % (Auto) [place] % (Auto) Lymph # [place] # Seg Neutrophils % Seg Neuts % (Manual) Lymphocytes % (Manual) Seg Neutrophils # Seg Neutrophils # Man Lymphocytes # (Manual) Monocytes # (Manual) POC ABG pH ABG pH POC ABG pCO2 POC ABG pO2 ABG pO2 ABG HCO3 ABG Base Excess ABG Hemoglobin Oxyhemoglobin Sodium Potassium Chloride 108.4 H Carbon Dioxide BUN 22 H Creatinine 0.5 L Glucose 123 H POC Glucose 127 H Calcium 7.4 L Phosphorus 1.80 L Magnesium Direct Bilirubin AST Alkaline Phosphatase C-Reactive Protein Serum Total Protein Total Protein Albumin Prealbumin Wlhxv-2-Vkzwbrxir Snppn-8-Ctghtmffq Gamma Globulins PEP Interpretation Triglycerides Urine pH Urine Creatinine Urine Total Protein Digoxin 0.7 L Crossmatch 10/19/19 10/19/19 10/19/19 05:00 05:35 11:26 WBC RBC Hgb Hct RDW Plt Count Lymph % (Auto) [place] % (Auto) Lymph # [place] # Seg Neutrophils % Seg Neuts % (Manual) Lymphocytes % (Manual) Seg Neutrophils # Seg Neutrophils # Man Lymphocytes # (Manual) Monocytes # (Manual) POC ABG pH ABG pH 7.456 H POC ABG pCO2 POC ABG pO2 ABG pO2 78.8 L ABG HCO3 ABG Base Excess ABG Hemoglobin 5.6 L Oxyhemoglobin Sodium Potassium Chloride Carbon Dioxide BUN Creatinine Glucose POC Glucose 124 H 111 H Calcium Phosphorus Magnesium Direct Bilirubin AST Alkaline Phosphatase C-Reactive Protein Serum Total Protein Total Protein Albumin Prealbumin Sacal-3-Oqsrsrasq Xeqva-4-Wkwxytazy Gamma Globulins PEP Interpretation Triglycerides Urine pH Urine Creatinine Urine Total Protein Digoxin Crossmatch 10/19/19 10/20/19 10/20/19 23:23 04:50 05:17 WBC RBC Hgb Hct RDW Plt Count Lymph % (Auto) [place] % (Auto) Lymph # [place] # Seg Neutrophils % Seg Neuts % (Manual) Lymphocytes % (Manual) Seg Neutrophils # Seg Neutrophils # Man Lymphocytes # (Manual) Monocytes # (Manual) POC ABG pH ABG pH POC ABG pCO2 POC ABG pO2 ABG pO2 ABG HCO3 ABG Base Excess ABG Hemoglobin Oxyhemoglobin Sodium Potassium Chloride 108.1 H Carbon Dioxide BUN Creatinine 0.4 L Glucose 134 H POC Glucose 129 H 123 H Calcium 7.1 L Phosphorus Magnesium Direct Bilirubin AST Alkaline Phosphatase C-Reactive Protein Serum Total Protein Total Protein Albumin Prealbumin Qziga-6-Pblnntevd Ahzqq-3-Fsoxlhyuc Gamma Globulins PEP Interpretation Triglycerides Urine pH Urine Creatinine Urine Total Protein Digoxin Crossmatch 10/20/19 10/20/19 10/21/19 11:40 19:06 05:08 WBC RBC Hgb Hct RDW Plt Count Lymph % (Auto) [place] % (Auto) Lymph # [place] # Seg Neutrophils % Seg Neuts % (Manual) Lymphocytes % (Manual) Seg Neutrophils # Seg Neutrophils # Man Lymphocytes # (Manual) Monocytes # (Manual) POC ABG pH ABG pH POC ABG pCO2 POC ABG pO2 ABG pO2 ABG HCO3 ABG Base Excess ABG Hemoglobin Oxyhemoglobin Sodium Potassium Chloride Carbon Dioxide BUN Creatinine Glucose POC Glucose 139 H 117 H 131 H Calcium Phosphorus Magnesium Direct Bilirubin AST Alkaline Phosphatase C-Reactive Protein Serum Total Protein Total Protein Albumin Prealbumin Gmort-1-Sitiuqkzp Pbync-1-Tmoohdxiw Gamma Globulins PEP Interpretation Triglycerides Urine pH Urine Creatinine Urine Total Protein Digoxin Crossmatch 10/21/19 10/21/19 10/21/19 05:30 12:04 17:31 WBC RBC Hgb Hct RDW Plt Count Lymph % (Auto) [place] % (Auto) Lymph # [place] # Seg Neutrophils % Seg Neuts % (Manual) Lymphocytes % (Manual) Seg Neutrophils # Seg Neutrophils # Man Lymphocytes # (Manual) Monocytes # (Manual) POC ABG pH ABG pH POC ABG pCO2 POC ABG pO2 ABG pO2 ABG HCO3 ABG Base Excess ABG Hemoglobin Oxyhemoglobin Sodium Potassium Chloride 107.8 H Carbon Dioxide BUN Creatinine 0.5 L Glucose 119 H POC Glucose 119 H 110 H Calcium 7.6 L Phosphorus Magnesium Direct Bilirubin AST Alkaline Phosphatase C-Reactive Protein Serum Total Protein Total Protein Albumin Prealbumin Dhata-0-Iqycjytkq Geeso-5-Eyxfcgzzs Gamma Globulins PEP Interpretation Triglycerides Urine pH Urine Creatinine Urine Total Protein Digoxin Crossmatch 10/22/19 10/22/19 10/22/19 05:14 05:37 12:07 WBC RBC Hgb Hct RDW Plt Count Lymph % (Auto) [place] % (Auto) Lymph # [place] # Seg Neutrophils % Seg Neuts % (Manual) Lymphocytes % (Manual) Seg Neutrophils # Seg Neutrophils # Man Lymphocytes # (Manual) Monocytes # (Manual) POC ABG pH ABG pH POC ABG pCO2 POC ABG pO2 ABG pO2 ABG HCO3 ABG Base Excess ABG Hemoglobin Oxyhemoglobin Sodium Potassium Chloride Carbon Dioxide BUN Creatinine 0.5 L Glucose 116 H POC Glucose 110 H 126 H Calcium 7.7 L Phosphorus Magnesium Direct Bilirubin AST Alkaline Phosphatase C-Reactive Protein Serum Total Protein Total Protein Albumin Prealbumin Hubeb-9-Ikhtpobci Uodrr-5-Oobynsrik Gamma Globulins PEP Interpretation Triglycerides Urine pH Urine Creatinine Urine Total Protein Digoxin Crossmatch 10/22/19 10/22/19 10/23/19 18:36 23:19 04:39 WBC RBC Hgb Hct RDW Plt Count Lymph % (Auto) [place] % (Auto) Lymph # [place] # Seg Neutrophils % Seg Neuts % (Manual) Lymphocytes % (Manual) Seg Neutrophils # Seg Neutrophils # Man Lymphocytes # (Manual) Monocytes # (Manual) POC ABG pH ABG pH POC ABG pCO2 POC ABG pO2 ABG pO2 ABG HCO3 ABG Base Excess ABG Hemoglobin Oxyhemoglobin Sodium Potassium Chloride Carbon Dioxide BUN Creatinine Glucose POC Glucose 120 H 127 H 112 H Calcium Phosphorus Magnesium Direct Bilirubin AST Alkaline Phosphatase C-Reactive Protein Serum Total Protein Total Protein Albumin Prealbumin Fnwwv-3-Tmiragzxj Lumri-5-Ekkwlsaqo Gamma Globulins PEP Interpretation Triglycerides Urine pH Urine Creatinine Urine Total Protein Digoxin Crossmatch 10/23/19 10/23/19 10/23/19 04:47 05:15 10:44 WBC 18.3 H RBC 2.33 L Hgb 7.0 L Hct 21.5 L RDW 16.2 H Plt Count Lymph % (Auto) 4.9 L [place] % (Auto) 8.1 H Lymph # 0.9 L [place] # 1.5 H Seg Neutrophils % 86.7 H Seg Neuts % (Manual) Lymphocytes % (Manual) Seg Neutrophils # 15.9 H Seg Neutrophils # Man Lymphocytes # (Manual) Monocytes # (Manual) POC ABG pH ABG pH POC ABG pCO2 POC ABG pO2 ABG pO2 68.9 L ABG HCO3 28.7 H ABG Base Excess 3.4 H ABG Hemoglobin 6.6 L Oxyhemoglobin 94.1 L Sodium Potassium Chloride Carbon Dioxide BUN Creatinine 0.5 L Glucose 165 H POC Glucose Calcium 7.4 L Phosphorus Magnesium Direct Bilirubin AST Alkaline Phosphatase C-Reactive Protein Serum Total Protein Total Protein Albumin Prealbumin Lgdnt-4-Ekmcydrap Tzgsa-6-Uaitsumjg Gamma Globulins PEP Interpretation Triglycerides Urine pH Urine Creatinine Urine Total Protein Digoxin Crossmatch 10/23/19 10/23/19 10/23/19 10:44 11:46 11:50 WBC RBC Hgb Hct RDW Plt Count Lymph % (Auto) [place] % (Auto) Lymph # [place] # Seg Neutrophils % Seg Neuts % (Manual) Lymphocytes % (Manual) Seg Neutrophils # Seg Neutrophils # Man Lymphocytes # (Manual) Monocytes # (Manual) POC ABG pH ABG pH POC ABG pCO2 POC ABG pO2 ABG pO2 ABG HCO3 ABG Base Excess ABG Hemoglobin Oxyhemoglobin Sodium Potassium Chloride Carbon Dioxide BUN Creatinine Glucose POC Glucose 138 H Calcium Phosphorus Magnesium Direct Bilirubin 0.7 H AST Alkaline Phosphatase C-Reactive Protein Serum Total Protein Total Protein 4.5 L Albumin 1.2 L Prealbumin Tktlf-7-Reszxdmzw Wtooo-9-Ltoprdxpa Gamma Globulins PEP Interpretation Triglycerides Urine pH Urine Creatinine Urine Total Protein Digoxin Crossmatch See Detail 10/23/19 10/24/19 10/24/19 17:53 00:07 05:05 WBC RBC Hgb Hct RDW Plt Count Lymph % (Auto) [place] % (Auto) Lymph # [place] # Seg Neutrophils % Seg Neuts % (Manual) Lymphocytes % (Manual) Seg Neutrophils # Seg Neutrophils # Man Lymphocytes # (Manual) Monocytes # (Manual) POC ABG pH ABG pH POC ABG pCO2 POC ABG pO2 ABG pO2 ABG HCO3 ABG Base Excess ABG Hemoglobin Oxyhemoglobin Sodium Potassium 3.5 L Chloride Carbon Dioxide BUN Creatinine 0.5 L Glucose 116 H POC Glucose 137 H 110 H Calcium 8.0 L Phosphorus Magnesium Direct Bilirubin AST Alkaline Phosphatase C-Reactive Protein Serum Total Protein Total Protein Albumin Prealbumin Wgtxf-6-Pxghfvudo Wgibi-3-Kolxcoobh Gamma Globulins PEP Interpretation Triglycerides Urine pH Urine Creatinine Urine Total Protein Digoxin Crossmatch 10/24/19 10/24/19 10/24/19 05:05 11:56 13:00 WBC 13.0 H RBC 2.73 L Hgb 8.0 L Hct 24.2 L RDW 17.9 H Plt Count Lymph % (Auto) 7.0 L [place] % (Auto) 9.5 H Lymph # 0.9 L [place] # 1.2 H Seg Neutrophils % 82.7 H Seg Neuts % (Manual) Lymphocytes % (Manual) Seg Neutrophils # 10.7 H Seg Neutrophils # Man Lymphocytes # (Manual) Monocytes # (Manual) POC ABG pH ABG pH POC ABG pCO2 POC ABG pO2 ABG pO2 ABG HCO3 ABG Base Excess ABG Hemoglobin Oxyhemoglobin Sodium Potassium Chloride Carbon Dioxide BUN Creatinine Glucose POC Glucose 159 H Calcium Phosphorus Magnesium Direct Bilirubin AST Alkaline Phosphatase C-Reactive Protein Serum Total Protein Total Protein Albumin Prealbumin Ptktr-4-Agtqdgmip Hfknp-6-Toyvibgdj Gamma Globulins PEP Interpretation Triglycerides 216 H Urine pH Urine Creatinine Urine Total Protein Digoxin Crossmatch 10/24/19 10/24/19 10/25/19 17:42 23:45 04:19 WBC RBC Hgb Hct RDW Plt Count Lymph % (Auto) [place] % (Auto) Lymph # [place] # Seg Neutrophils % Seg Neuts % (Manual) Lymphocytes % (Manual) Seg Neutrophils # Seg Neutrophils # Man Lymphocytes # (Manual) Monocytes # (Manual) POC ABG pH ABG pH POC ABG pCO2 POC ABG pO2 ABG pO2 ABG HCO3 ABG Base Excess ABG Hemoglobin Oxyhemoglobin Sodium 147 H Potassium Chloride Carbon Dioxide 33 H BUN Creatinine 0.5 L Glucose 111 H POC Glucose 120 H 116 H Calcium Phosphorus Magnesium Direct Bilirubin AST Alkaline Phosphatase C-Reactive Protein Serum Total Protein Total Protein 5.7 L D Albumin 2.5 L Prealbumin Cjdyx-6-Vgdbvcnlb Ralnp-3-Fnmjdvtfd Gamma Globulins PEP Interpretation Triglycerides 230 H Urine pH Urine Creatinine Urine Total Protein Digoxin Crossmatch 10/25/19 10/25/19 10/25/19 04:19 05:31 12:20 WBC RBC 2.69 L Hgb 8.1 L Hct 23.9 L RDW 17.3 H Plt Count Lymph % (Auto) [place] % (Auto) Lymph # [place] # Seg Neutrophils % Seg Neuts % (Manual) Lymphocytes % (Manual) Seg Neutrophils # Seg Neutrophils # Man Lymphocytes # (Manual) Monocytes # (Manual) POC ABG pH ABG pH POC ABG pCO2 POC ABG pO2 ABG pO2 ABG HCO3 ABG Base Excess ABG Hemoglobin Oxyhemoglobin Sodium Potassium Chloride Carbon Dioxide BUN Creatinine Glucose POC Glucose 126 H 114 H Calcium Phosphorus Magnesium Direct Bilirubin AST Alkaline Phosphatase C-Reactive Protein Serum Total Protein Total Protein Albumin Prealbumin Efccn-2-Xfschpuoi Bties-4-Mmdynfjwx Gamma Globulins PEP Interpretation Triglycerides Urine pH Urine Creatinine Urine Total Protein Digoxin Crossmatch 10/25/19 10/25/19 10/26/19 18:30 23:09 06:15 WBC RBC Hgb Hct RDW Plt Count Lymph % (Auto) [place] % (Auto) Lymph # [place] # Seg Neutrophils % Seg Neuts % (Manual) Lymphocytes % (Manual) Seg Neutrophils # Seg Neutrophils # Man Lymphocytes # (Manual) Monocytes # (Manual) POC ABG pH ABG pH POC ABG pCO2 POC ABG pO2 ABG pO2 ABG HCO3 ABG Base Excess ABG Hemoglobin Oxyhemoglobin Sodium Potassium 3.5 L Chloride Carbon Dioxide BUN Creatinine 0.5 L Glucose 112 H POC Glucose 121 H 107 H Calcium 8.3 L Phosphorus Magnesium Direct Bilirubin AST Alkaline Phosphatase 148 H C-Reactive Protein Serum Total Protein Total Protein 5.9 L Albumin 2.4 L Prealbumin Frckq-1-Hoccwchev Tevun-8-Cazhbdpgl Gamma Globulins PEP Interpretation Triglycerides Urine pH Urine Creatinine Urine Total Protein Digoxin Crossmatch 10/26/19 10/26/19 10/26/19 06:15 12:21 17:35 WBC RBC Hgb Hct RDW Plt Count Lymph % (Auto) [place] % (Auto) Lymph # [place] # Seg Neutrophils % Seg Neuts % (Manual) Lymphocytes % (Manual) Seg Neutrophils # Seg Neutrophils # Man Lymphocytes # (Manual) Monocytes # (Manual) POC ABG pH ABG pH POC ABG pCO2 POC ABG pO2 ABG pO2 ABG HCO3 ABG Base Excess ABG Hemoglobin Oxyhemoglobin Sodium Potassium Chloride Carbon Dioxide BUN Creatinine Glucose POC Glucose 134 H 141 H Calcium Phosphorus Magnesium Direct Bilirubin AST Alkaline Phosphatase C-Reactive Protein Serum Total Protein Total Protein Albumin Prealbumin Fwmgg-5-Ewodwulim Ggnja-1-Dropqzbea Gamma Globulins PEP Interpretation Triglycerides 185 H Urine pH Urine Creatinine Urine Total Protein Digoxin Crossmatch 10/26/19 10/27/19 10/27/19 Unknown 04:30 11:33 WBC RBC Hgb Hct RDW Plt Count Lymph % (Auto) [place] % (Auto) Lymph # [place] # Seg Neutrophils % Seg Neuts % (Manual) Lymphocytes % (Manual) Seg Neutrophils # Seg Neutrophils # Man Lymphocytes # (Manual) Monocytes # (Manual) POC ABG pH ABG pH POC ABG pCO2 POC ABG pO2 ABG pO2 ABG HCO3 ABG Base Excess ABG Hemoglobin Oxyhemoglobin Sodium Potassium 3.2 L Chloride Carbon Dioxide BUN 23 H Creatinine 0.6 L Glucose 130 H POC Glucose 131 H Calcium 7.9 L Phosphorus Magnesium Direct Bilirubin AST Alkaline Phosphatase C-Reactive Protein Serum Total Protein Total Protein Albumin Prealbumin Illkz-3-Vsjysnkst Dbxbm-7-Obmcsprqd Gamma Globulins PEP Interpretation Triglycerides Urine pH 9.0 H Urine Creatinine Urine Total Protein Digoxin Crossmatch 10/27/19 17:45 WBC RBC Hgb Hct RDW Plt Count Lymph % (Auto) [place] % (Auto) Lymph # [place] # Seg Neutrophils % Seg Neuts % (Manual) Lymphocytes % (Manual) Seg Neutrophils # Seg Neutrophils # Man Lymphocytes # (Manual) Monocytes # (Manual) POC ABG pH ABG pH POC ABG pCO2 POC ABG pO2 ABG pO2 ABG HCO3 ABG Base Excess ABG Hemoglobin Oxyhemoglobin Sodium Potassium Chloride Carbon Dioxide BUN Creatinine Glucose POC Glucose 121 H Calcium Phosphorus Magnesium Direct Bilirubin AST Alkaline Phosphatase C-Reactive Protein Serum Total Protein Total Protein Albumin Prealbumin Ndkmm-2-Pagfwxznu Vcxia-3-Xthqnjimp Gamma Globulins PEP Interpretation Triglycerides Urine pH Urine Creatinine Urine Total Protein Digoxin Crossmatch Chest x-ray: report reviewed, image reviewed
[2019-10-28] MEDS: INSULIN LISPRO 100 UNIT/ML SUB-Q SCH ×4 (00:11→20:06)
[2019-10-28] MEDS: IPRATROPIUM/ALBUTEROL SULFATE 3 ML AMPUL.NEB IH SCH ×4 (01:40→19:36)
[2019-10-28] MEDS: MEROPENEM/NS 1 GRAM/100 ML 1 GRAM/100 ML BAG IV SCH ×3 (03:06→18:32)
[2019-10-28] MEDS: VANCOMYCIN 2,000 MG in SODIUM CHLORIDE 0.9% 500 ML 500 ML IV SCH ×3 (04:10→20:29)
[2019-10-28] MEDS: METOPROLOL TARTRATE 50 MG TAB PO SCH ×3 (05:21→22:39)
[2019-10-28 05:44] LABS: Basophils % (Auto) 0.2 % (0.0-1.8); Eosinophils % (Auto) 0.1 % (0.0-4.3); Hematocrit 26.8 % (35.5-45.6); Hemoglobin 8.3 gm/dl (11.8-15.2); Lymphocytes # (Auto) 0.8 K/mm3 (1.2-5.4); Lymphocytes % (Auto) 8.9 % (13.4-35.0); Mean Corpuscular HGB Conc 31 % (32-34); Mean Corpuscular Volume 94 fl (84-94); Monocytes # (Auto) 1.3 K/mm3 (0.0-0.8); Monocytes % (Auto) 14.3 % (0.0-7.3); Platelet Count 242 K/mm3 (140-440); Red Blood Count 2.85 M/mm3 (3.65-5.03); Red Cell Distribution Width 17.4 % (13.2-15.2)
[2019-10-28 06:44] LABS: BUN/Creatinine Ratio TNR; Blood Urea Nitrogen TNR mg/dL (9-20); Hemolysis Index TNR
[2019-10-28 06:45] LABS: Calcium TNR mg/dL (8.4-10.2)
[2019-10-28] MEDS: BUDESONIDE 0.5 MG/2 ML NEBU IH SCH ×2 (08:05→19:36)
[2019-10-28] MEDS: ARFORMOTEROL 15 MCG/2 ML NEBU IH SCH ×2 (08:05→19:36)
[2019-10-28 08:19] LABS: BUN/Creatinine Ratio 46; Blood Urea Nitrogen 23 mg/dL (9-20); Hemolysis Index 4
[2019-10-28] MEDS: AMIODARONE 200 MG TAB PO SCH (09:41)
[2019-10-28] MEDS: CITALOPRAM 20 MG TAB PO SCH (09:41)
[2019-10-28] MEDS: PANTOPRAZOLE 40 MG INJ IV SCH (09:42)
[2019-10-28] MEDS: MICAFUNGIN 100 MG in SODIUM CHLORIDE 0.9% 100 ML IV SCH (10:00)
--- NOTE | 2019-10-28 10:19 | Progress Note ---
Assessment and Plan Assessment and plan: Sepsis, recurrent. Patient with new fevers that have been persistent. ID restarted antibiotics. Etiology likely secondary to fluid collection/abscess in the abdomen and anastomotic leak. Follow-up blood culture, fungal blood culture, UA, urine culture, CXR ordered. Whitfield was removed and urinalysis sent. Given recent prolonged exposure to abx and TPN, at risk of MDR infections, ID started empiric Meropenem and Micafungin Dehiscence of closure of fascia * Went to OR for ex lap with closure of abdominal wall and wound vac placement (10/05) * Continued to decline with possible Air vs fluid, 10/10/19 IR went in and placed two drains, Noted to have possible fecal material * Returned to the OR 10/13/19 due to concern for intra-abdominal infection and was found to have with heavy contamination of abdomen patent had disruption of bowel anastomosis, abdominal washout, abthera placement and colon stapled transection and left bowel enterotomy from anastomosis completely open * Returned to OR on 10/16/19 for abdominal washout, Partial Omentectomy, Partial Colectomy, Colostomy Creation and AbThera Placement * Abdominal washout and closure - 10/22 * cont wound care Acute Respiratory failure with hypoxia -Extubated 10/25/19 -Currently HFNC -[employer] Operations [employer] following Left lower lobe pneumonia -Continue IV antibiotic -CTA chest showed left lower lobe consolidation with pleural effusion GUILLERMO on CRF -probably ATN due to sepsis -Improving, will monitor -SPEP and UPEP pending -No hydronephrosis on CT -Whitfield in place, monitor I/O's Severe Metabolic acidosis -Improved Acute Toxic Metabolic Encephalopathy/Delirium Tremens -Started on CIWA protocol due to hx of ETOH abuse, 6packs a day -Head CT scan negative for acute findings Acute blood loss anemia -H/H stable -Continue to monitor H&H and transfuse for hb<7 SVT, Atrial fib/flutter with RVR -treated with adenosine x1 -off amiodarone and cardizem drip. On oral amiodarone and IV Lopressor. -HR currently controlled -Cardiology following Hypotension -Off esmolol drip -s/p IV fluid boluses, BP stable Hypophosphatemia -will monitor level Hx of Hypertension -Stable Hyperlipidemia -stable Atypical chest pain -probably secondary to pneumonitis -troponin levels neg Hx of [place]/CAD -s/p PCI of the circumflex and second vessel POBA of the distal LAD occlusion. Left ventricle fraction of 45-50%. Morbid obesity with BMI of 45.4 -Lifestyle modification recommended COPD -Stable -cont neb tx Moderate Protein calorie malnutrition secondary to surgery -On TPN -Nutrition following Tobacco abuse -Cessation recommended Morbid obesity with BMI of 45.4 -Lifestyle modification recommended DVT and GI ppx: Lovenox/PPI Disp: Very poor prognosis. d/c per clinical course The high probability of a clinically significant, sudden or life threatening deterioration of the [respiratory] system(s) required my full and direct attention, intervention and personal management. The aggregate critical care time was [31] minutes. This time is in addition to time spent performing reported procedures but includes the following: [x] Data Review and interpretation [x] Patient assessment and monitoring of vital signs [x] Documentation [x] Medication orders and management History Interval history: Patient extubated on 10/25/19. Patient currently on HFNC Hospitalist Physical - Constitutional Vitals: Temp Pulse Resp BP Pulse Ox 99.5 F 79 34 H 172/86 93 10/28/19 08:00 10/28/19 10:00 10/28/19 10:00 10/28/19 10:00 10/28/19 10:00 General appearance: Present: mild distress, well-nourished - EENT Eyes: Present: PERRL, EOM intact ENT: hearing intact, clear oral mucosa, dentition normal - Neck Neck: Present: supple, normal ROM - Respiratory Respiratory effort: normal Respiratory: bilateral: CTA - Cardiovascular Rhythm: regular Heart Sounds: Present: S1 & S2. Absent: gallop, rub - Extremities Extremities: no ischemia, No edema, Full ROM - Abdominal General gastrointestinal: soft, tender, non-distended, normal bowel sounds Localized gastrointestinal: tender: diffuse - Integumentary Integumentary: Present: clear, warm, dry - Neurologic Neurologic: CNII-XII intact, moves all extremities Results - Labs CBC & Chem 7: 10/28/19 05:25 10/28/19 07:19 Labs: Laboratory Last Values WBC 8.9 K/mm3 (4.5-11.0) 10/28/19 05:25 RBC 2.85 M/mm3 (3.65-5.03) L 10/28/19 05:25 Hgb 8.3 gm/dl (11.8-15.2) L 10/28/19 05:25 Hct 26.8 % (35.5-45.6) L 10/28/19 05:25 MCV 94 fl (84-94) 10/28/19 05:25 MCH 29 pg (28-32) 10/28/19 05:25 MCHC 31 % (32-34) L 10/28/19 05:25 RDW 17.4 % (13.2-15.2) H 10/28/19 05:25 Plt Count 242 K/mm3 (140-440) 10/28/19 05:25 Lymph % (Auto) 8.9 % (13.4-35.0) L 10/28/19 05:25 Dawson % (Auto) 14.3 % (0.0-7.3) H 10/28/19 05:25 Eos % (Auto) 0.1 % (0.0-4.3) 10/28/19 05:25 Baso % (Auto) 0.2 % (0.0-1.8) 10/28/19 05:25 Lymph # 0.8 K/mm3 (1.2-5.4) L 10/28/19 05:25 Dawson # 1.3 K/mm3 (0.0-0.8) H 10/28/19 05:25 Eos # 0.0 K/mm3 (0.0-0.4) 10/28/19 05:25 Baso # 0.0 K/mm3 (0.0-0.1) 10/28/19 05:25 Add Manual Diff Complete 10/16/19 09:20 Total Counted 100 10/16/19 09:20 Seg Neutrophils % 76.5 % (40.0-70.0) H 10/28/19 05:25 Seg Neuts % (Manual) 79.0 % (40.0-70.0) H 10/16/19 09:20 Band Neutrophils % 12.0 % 10/16/19 09:20 Lymphocytes % (Manual) 4.0 % (13.4-35.0) L 10/16/19 09:20 Reactive Lymphs % (Man) 0 % 10/16/19 09:20 Monocytes % (Manual) 2.0 % (0.0-7.3) 10/16/19 09:20 Eosinophils % (Manual) 0 % (0.0-4.3) 10/16/19 09:20 Basophils % (Manual) 0 % (0.0-1.8) 10/16/19 09:20 Metamyelocytes % 2.0 % 10/16/19 09:20 Myelocytes % 1.0 % 10/16/19 09:20 Promyelocytes % 0 % 10/16/19 09:20 Blast Cells % 0 % 10/16/19 09:20 Nucleated RBC % Not Reportable 10/16/19 09:20 Seg Neutrophils # 6.8 K/mm3 (1.8-7.7) 10/28/19 05:25 Seg Neutrophils # Man 11.5 K/mm3 (1.8-7.7) H 10/16/19 09:20 Band Neutrophils # 1.8 K/mm3 10/16/19 09:20 Lymphocytes # (Manual) 0.6 K/mm3 (1.2-5.4) L 10/16/19 09:20 Abs React Lymphs (Man) 0.0 K/mm3 10/16/19 09:20 Monocytes # (Manual) 0.3 K/mm3 (0.0-0.8) 10/16/19 09:20 Eosinophils # (Manual) 0.0 K/mm3 (0.0-0.4) 10/16/19 09:20 Basophils # (Manual) 0.0 K/mm3 (0.0-0.1) 10/16/19 09:20 Metamyelocytes # 0.3 K/mm3 10/16/19 09:20 Myelocytes # 0.1 K/mm3 10/16/19 09:20 Promyelocytes # 0.0 K/mm3 10/16/19 09:20 Blast Cells # 0.0 K/mm3 10/16/19 09:20 WBC Morphology Not Reportable 10/16/19 09:20 Hypersegmented Neuts Not Reportable 10/16/19 09:20 Hyposegmented Neuts Not Reportable 10/16/19 09:20 Hypogranular Neuts Not Reportable 10/16/19 09:20 Smudge Cells Not Reportable 10/16/19 09:20 Toxic Granulation Not Reportable 10/16/19 09:20 Toxic Vacuolation Not Reportable 10/16/19 09:20 Dohle Bodies Not Reportable 10/16/19 09:20 Pelger-Huet Anomaly Not Reportable 10/16/19 09:20 Andres Rods Not Reportable 10/16/19 09:20 Platelet Estimate Consistent w auto 10/16/19 09:20 Clumped Platelets Not Reportable 10/16/19 09:20 Plt Clumps, EDTA Not Reportable 10/16/19 09:20 Large Platelets Not Reportable 10/16/19 09:20 Giant Platelets Not Reportable 10/16/19 09:20 Platelet Satelliting Not Reportable 10/16/19 09:20 Plt Morphology Comment Not Reportable 10/16/19 09:20 RBC Morphology Not Reportable 10/16/19 09:20 Dimorphic RBCs Not Reportable 10/16/19 09:20 Polychromasia Few 10/16/19 09:20 Hypochromasia Few 10/16/19 09:20 Poikilocytosis Not Reportable 10/16/19 09:20 Anisocytosis Not Reportable 10/16/19 09:20 Microcytosis Not Reportable 10/16/19 09:20 Macrocytosis Not Reportable 10/16/19 09:20 Spherocytes Not Reportable 10/16/19 09:20 Pappenheimer Bodies Not Reportable 10/16/19 09:20 Sickle Cells Not Reportable 10/16/19 09:20 Target Cells Few 10/16/19 09:20 Tear Drop Cells Not Reportable 10/16/19 09:20 Ovalocytes Not Reportable 10/16/19 09:20 Helmet Cells Not Reportable 10/16/19 09:20 [place] Bodies Not Reportable 10/16/19 09:20 [place] Rings Not Reportable 10/16/19 09:20 Bishnu Cells Not Reportable 10/16/19 09:20 Bite Cells Not Reportable 10/16/19 09:20 Crenated Cell Not Reportable 10/16/19 09:20 Elliptocytes Not Reportable 10/16/19 09:20 Acanthocytes (Spur) Not Reportable 10/16/19 09:20 Rouleaux Not Reportable 10/16/19 09:20 Hemoglobin C Crystals Not Reportable 10/16/19 09:20 Schistocytes Not Reportable 10/16/19 09:20 Malaria parasites Not Reportable 10/16/19 09:20 Toni Bodies Not Reportable 10/16/19 09:20 Hem Pathologist Commnt No 10/16/19 09:20 POC ABG pH 7.310 (7.35-7.45) L 10/17/19 05:41 ABG pH 7.390 pH Units (7.350-7.450) 10/23/19 04:47 POC ABG pCO2 52.8 (35-45) H 10/17/19 05:41 ABG pCO2 48.4 mm Hg 10/23/19 04:47 POC ABG pO2 70 (80-105) L 10/17/19 05:41 ABG pO2 68.9 mm Hg (80.0-90.0) L 10/23/19 04:47 POC ABG HCO3 26.6 (22-26 mml/L) 10/17/19 05:41 ABG HCO3 28.7 mmol/L (20.0-26.0) H 10/23/19 04:47 POC ABG Total CO2 28 (23-27mmol/L) 10/17/19 05:41 POC ABG O2 Sat 92 10/17/19 05:41 ABG O2 Saturation 96.6 % (95.0-99.0) 10/23/19 04:47 ABG O2 Content 8.8 (0.0-44) 10/23/19 04:47 POC ABG Base Excess 0 ((-2) - (+3)mmol/L) 10/17/19 05:41 ABG Base Excess 3.4 mmol/L (-2.0-3.0) H 10/23/19 04:47 ABG Hemoglobin 6.6 gm/dl (14.0-18.0) L 10/23/19 04:47 ABG Carboxyhemoglobin 2.1 % (0.0-5.0) 10/23/19 04:47 ABG Methemoglobin 0.5 % (0.0-1.5) 10/23/19 04:47 Oxyhemoglobin 94.1 % (95.0-99.0) L 10/23/19 04:47 FiO2 40 % 10/23/19 04:47 Sodium 144 mmol/L (137-145) 10/28/19 07:19 Potassium 3.7 mmol/L (3.6-5.0) 10/28/19 07:19 Chloride 105.2 mmol/L (98-107) 10/28/19 07:19 Carbon Dioxide 23 mmol/L (22-30) 10/28/19 07:19 Anion Gap 20 mmol/L 10/28/19 07:19 BUN 23 mg/dL (9-20) H 10/28/19 07:19 Creatinine 0.5 mg/dL (0.8-1.5) L 10/28/19 07:19 Estimated GFR > 60 ml/min 10/28/19 07:19 BUN/Creatinine Ratio 46 % 10/28/19 07:19 Glucose 129 mg/dL (75-100) H 10/28/19 07:19 POC Glucose 120 (70-105) H 10/28/19 05:49 Hemoglobin A1c 5.7 % (4-6) 10/06/19 05:36 Lactic Acid 1.10 mmol/L (0.7-2.0) 10/13/19 04:20 Calcium 8.0 mg/dL (8.4-10.2) L 10/28/19 07:19 Ionized Calcium 5.2 mg/dL (4.8-5.6) 10/18/19 07:41 Phosphorus 3.50 mg/dL (2.5-4.5) D 10/28/19 07:19 Magnesium 2.30 mg/dL (1.7-2.3) 10/28/19 07:19 Total Bilirubin 1.10 mg/dL (0.1-1.2) 10/26/19 06:15 Direct Bilirubin 0.7 mg/dL (0-0.2) H 10/23/19 10:44 Indirect Bilirubin 0.1 mg/dL 10/23/19 10:44 AST 23 units/L (5-40) 10/26/19 06:15 ALT 13 units/L (7-56) 10/26/19 06:15 Alkaline Phosphatase 148 units/L (35-129) H 10/26/19 06:15 Ammonia 49.0 umol/L (25-60) 10/13/19 04:20 Troponin T < 0.010 ng/mL (0.00-0.029) 10/09/19 17:23 C-Reactive Protein 30.60 mg/dL (0.00-1.30) H 10/15/19 04:32 Serum Total Protein 5.2 g/dL (6.1-8.1) L 10/11/19 09:00 Total Protein 5.9 g/dL (6.3-8.2) L 10/26/19 06:15 Albumin 2.4 g/dL (3.9-5) L 10/26/19 06:15 Albumin/Globulin Ratio 0.7 % 10/26/19 06:15 Prealbumin 0.030 g/L (0.200-0.400) L 10/15/19 04:32 [id number] See scanned result 10/11/19 Unknown [id number] See scanned result 10/11/19 Unknown Beta Globulins See scanned result 10/11/19 Unknown Gamma Globulins See scanned result 10/11/19 Unknown Abnorm Protein Band 1 see below 10/11/19 09:00 PEP Interpretation See scanned result 10/11/19 Unknown Triglycerides 185 mg/dL (2-149) H 10/26/19 06:15 Urine Color Yellow (Yellow) 10/26/19 Unknown Urine Turbidity Clear (Clear) 10/26/19 Unknown Urine pH 9.0 (5.0-7.0) H 10/26/19 Unknown Ur Specific [place] 1.011 (1.003-1.030) 10/26/19 Unknown Urine Protein 30 mg/dl mg/dL (Negative) 10/26/19 Unknown Urine Glucose (UA) Neg mg/dL (Negative) 10/26/19 Unknown Urine Ketones Neg mg/dL (Negative) 10/26/19 Unknown Urine Blood Neg (Negative) 10/26/19 Unknown Urine Nitrite Neg (Negative) 10/26/19 Unknown Urine Bilirubin Neg (Negative) 10/26/19 Unknown Urine Urobilinogen < 2.0 mg/dL (<2.0) 10/26/19 Unknown Ur Leukocyte Esterase Neg (Negative) 10/26/19 Unknown Urine WBC (Auto) 1.0 /HPF (0.0-6.0) 10/26/19 Unknown Urine RBC (Auto) 1.0 /HPF (0.0-6.0) 10/26/19 Unknown Urine Bacteria (Auto) 1+ /HPF (Negative) 10/11/19 06:23 Urine Mucus Few /HPF 10/26/19 Unknown Urine Eosinophils None seen (None Seen) 10/11/19 06:23 Ur Random Creatinine See scanned result 10/11/19 Unknown U Random Total Protein See scanned result 10/11/19 Unknown Urine Creatinine 116.8 mg/dL (0.1-20.0) H 10/11/19 06:23 Urine Creatinine 118.2 mg/dL (0.1-20.0) H 10/11/19 06:23 Protein/Creatinin Ratio See scanned result 10/11/19 Unknown Urine Sodium 14 mmol/L 10/11/19 06:23 Urine Total Protein 104 mg/dL (5-11.8) H 10/11/19 06:23 Urine Total Protein 105 mg/dL (5-11.8) H 10/11/19 06:23 U Abnormal Prot Band 1 See scanned result 10/11/19 Unknown U Abnormal Prot Band 2 See scanned result 10/11/19 Unknown U Abnormal Prot Band 3 See scanned result 10/11/19 Unknown Vancomycin Trough 14.7 ug/mL (5.0-20.0) 10/27/19 20:15 Digoxin 0.7 ng/mL (0.9-2.0) L 10/19/19 04:21 Blood Type A POSITIVE 10/23/19 11:50 Antibody Screen Negative 10/23/19 11:50 Crossmatch See Detail 10/23/19 11:50 Active Medications - Current Medications Current Medications: Generic Name Dose Route Start Last Admin Trade Name Freq PRN Reason Stop Dose Admin Acetaminophen 650 mg 10/25/19 13:00 10/27/19 15:56 Tylenol FEEDTUBE 650 mg Q4H PRN Administration Fever >100.5 Albuterol 2.5 mg 10/05/19 21:36 Proventil IH Q4HRT PRN Shortness Of Breath Albuterol/Ipratropium 1 ampul 10/06/19 02:00 10/28/19 08:05 Duoneb *Not For Prn Use* IH 1 ampul Q6HRT VERÓNICA Administration Amiodarone HCl 200 mg 10/23/19 13:00 10/28/19 09:41 Cordarone PO 200 mg QDAY VERÓNICA Administration Lipase/Protease/Amylase 1 each 10/20/19 10:37 Pancreazanamika Moreno 10,500 Unit FEEDTUBE PRN PRN For Clogged Feeding Tube Arformoterol Tartrate 15 mcg 10/06/19 08:30 10/28/19 08:05 Brovana Nebu IH 15 mcg Q12HRT VERÓNICA Administration Budesonide 0.5 mg 10/07/19 12:20 10/28/19 08:05 Pulmicort IH 0.5 mg Q12HRT VERÓNICA Administration Citalopram Hydrobromide 20 mg 10/27/19 12:00 10/28/19 09:41 Celexa PO 20 mg DAILY VERÓNICA Administration Enoxaparin Sodium 40 mg 10/22/19 22:00 10/27/19 21:54 Enoxaparin SUB-Q 40 mg QDAY@2200 VERÓNICA Administration Fentanyl 50 mcg 10/25/19 12:35 Sublimaze IV Q2H PRN PAIN SCORE </=5 Haloperidol Lactate 5 mg 10/25/19 18:22 10/26/19 10:51 Haldol IV 5 mg Q6H PRN Administration Agitation Hydromorphone HCl 2 mg 10/25/19 12:35 10/27/19 04:40 Dilaudid IV 2 mg Q4H PRN Administration PAIN SCORE >/=6 MEROPENEM/NS 1 GRAM/100 ML 1 gram in 100 mls @ 100 mls/hr 10/26/19 18:30 10/28/19 09:42 Merrem/Ns 1 Gram/100 Ml IV 100 mls/hr Q8H VERÓNICA Administration Protocol Micafungin Sodium 100 mg/ 100 mls @ 100 mls/hr 10/26/19 18:30 10/27/19 10:35 Sodium Chloride IV 100 mls/hr QDAY [facility] Administration Protocol Vancomycin HCl 2,000 mg/ 540 mls @ 270 mls/hr 10/26/19 20:00 10/28/19 04:10 Sodium Chloride IV 270 mls/hr Q8H VERÓNICA Administration Protocol Amino Acids/Electrolytes/Dextrose 2,400 mls @ 100 mls/hr 10/27/19 20:00 10/27/19 21:54 Tpn Adult IV 10/28/19 19:59 100 mls/hr DAILY@2000 VERÓNICA Administration Protocol Amino Acids/Electrolytes/Dextrose 2,400 mls @ 100 mls/hr 10/28/19 20:00 Tpn Adult IV 10/29/19 19:59 DAILY@2000 [facility] Protocol Insulin Human Lispro 0 unit 10/14/19 12:00 10/28/19 05:47 Humalog SUB-Q Not Given Q6HR [facility] Protocol Metoprolol Tartrate 2.5 mg 10/15/19 15:34 10/18/19 00:05 Metoprolol IV 2.5 mg Q4HR PRN Administration HR >130 Metoprolol Tartrate 50 mg 10/25/19 14:00 10/28/19 05:21 Metoprolol PO 50 mg Q8HR VERÓNICA Administration Multi-Ingred Cream/Lotion/Oil/Oint 1 applic 10/14/19 02:19 Artificial Tears Ophth Oint OU Q4HR PRN Dry Eye(s) Ondansetron HCl 4 mg 10/05/19 21:22 10/11/19 18:20 Zofran IV 4 mg Q3H PRN Administration Nausea And Vomiting Pantoprazole Sodium 40 mg 10/15/19 10:00 10/28/19 09:42 Protonix IV 40 mg QDAY VERÓNICA Administration Simple Syrup 15 ml 10/20/19 10:37 Simple Syrup FEEDTUBE PRN PRN Hypoglycemia Simple Syrup 30 ml 10/20/19 10:37 Simple Syrup FEEDTUBE PRN PRN Hypoglycemia Sodium Bicarbonate 325 mg 10/20/19 10:37 Sodium Bicarbonate FEEDTUBE PRN PRN For Clogged Feeding Tube Sodium Chloride 10 ml 10/05/19 21:22 10/19/19 09:29 Sodium Chloride Flush Syringe 10 Ml IV 10 ml PRN PRN Administration LINE FLUSH Nutrition/Malnutrition Assess - Dietary Evaluation Nutrition/Malnutrition Findings: Nutrition Notes Start: 10/08/19 11:36 Freq: Status: Active Protocol: Document 10/28/19 09:25 LP (Rec: 10/28/19 09:35 LP [id number]) Nutrition Notes Initial or Follow up Reassessment Current Diagnosis Acute Kidney Injury,COPD, Hypertension Other Pertinent Diagnosis intra-abdominal infection, disruption of bowel anastomosis, LE edema Current Diet CPN at 100 ml/hr + Vital AF 1. 2 at 20 ml/hr Labs/Tests K 3.7 Pertinent Medications Reviewed Height 6 ft Weight 145 kg [place] Body Weight (kg) 80.90 BMI 43.3 Subjective/Other Information CPN day 15. Pt tolerating TF at 20ml/hr. MD does not want to increase more and possible diet advancement to clear liquids. Percent of energy/protein needs met: 81%/100% with TF and TPN Burn Absent Trauma Absent GI Symptoms None Current % PO Negligible Minimum of two criteria No Fluid Accumulation Mild (non-severe) #2 Nutrition Diagnosis Inadequate oral intake Diagnosis Progress(for reassessment Continues documentation) #1 Nutrition Diagnosis Increased nutrient needs ( specify in comment below) Diagnosis Progress(for reassessment Continues documentation) Is patient on ventilator? No Is Patient Ambulatory and/or Out of Bed No REE-([facility]-confined to bed) 2785.236 Kcal/Kg value to use for calculation 14 Approximate Energy Requirements Using 2030 kcal/Kg Calculation Used for Recommendations Kcal/kg Additional Notes Protein: 202g (up to 2.5 g/kg IBW 80.9 kg) Pay attention to renal issues Fluid: 1 ml/kcal or per MD Nutrition Intervention Change Diet Order: Continue CPN and increase trickle feeds Vital 1.2 at 20ml/hr Flush 50ml q6h Nutrition Support: CPN at 100ml/hr: 4.2% amino acid, 173mEq K, 0 mEq Mg, MVI Osmolality: 977 Kcal 1,656 Protein (gm) 136 Carbohydrates (gm) 253 Fat (gm) 0 Fluid (mL) 2,400 Fiber (gm) 0 Goal #1 Meet energy and protein needs as best as possible via CPN and TF Goal #2 TF advancement Anticipated Discharge Needs: unable to determine at this time Follow-Up By: 10/29/19 Additional Comments Labs in AM: CMP, Mg, Phos Follow for TF tolerance and advancement
--- NOTE | 2019-10-28 10:42 | Progress Note ---
Assessment and Plan Cultures 10/10/2019 surgical culture: No growth at 72 hours 10/13/2019 tracheal aspirate culture: No growth 10/13/2019 peritoneal fluid: Enterococcus species (S to Penicillin, Vancomycin) 10/15/2019 blood culture: no growth 10/26/2019 urine culture: no growth thus far 10/26/2019 blood culture: no growth at 24 hours Assessment: 54 yo M PMhx CAD, COPD, recent complicated course of bowel perforation after a colonoscopy admitted with surgical site dehiscence of the fascia. Now with: # Acute sepsis - present with leukocytosis and tachycardia. Most likely secondary to fluid collection/abscess in the abdomen and anastomotic leak. # New fevers: new fevers on 10/25 and 10/26. Ongoing work up and empiric abx. Has indwelling PICC, Whitfield was removed 10/26. UA unremarkable for infection. # Intra-abdominal infection from anastomotic leak - s/p ex lap with closure of abdominal wall and wound vac placement (10/05/2019); s/p Re-exploration, washout, transection of colon, Abthera placement - 10/13/2019. s/p re- exploration and colostomy creation on 10/16/2019, intra-operatively was found to have "Small amount of continued leak from the old anastomotic site. Some contamination still present. Bowel was all viable". Back on OR on 10/19/2019, findings "small leak from stump staple line". OR again on 10/22/2019 for: Abdominal washout. Closure of abdominal fascia. Wound vac placement. Findings, "contamination from the sigmoid stump closure site." # COPD, acute respiratory failure: s/p extubation. On high flow O2. # Penicillin allergy - likely not a true allergy, reviewed EMR for previous exposure to PCNs, patient received several days of Zosyn in 2018 without issue. Recs: - given recent prolonged exposure to abx and TPN, at risk of MDR infections, candidemia, continue empiric Meropenem, Vancomycin and Micafungin - f/u blood culture, fungal blood culture. UA unremarkable. Whitfield was removed 10/26/2019. - stop vancomycin if blood cultures are negative at 48 hours - consider stopping micafungin if fungal blood cultures are negative at 5 days - if no clear source is identified, may need to consider CT chest, abdomen and pelvis with contrast Dr. Wing taking over tomorrow. Julianna Pineda MD, FACP [facility] ([facility]) C: [phone] O: [phone] F: [phone] Subjective Date of service: 10/28/19 Principal diagnosis: acute renal failure Interval history: Low grade temperatures +. Remains off the vent. Able to follow commands, denies any specific complaints. On tube feeds with slightly increased rate of 20cc/hr, ostomy now functioning. Objective - Exam Narrative Exam: Physical Exam: Constitutional: awake, alert, no distress Head, Ears, Nose: Normocephalic, atraumatic. External ears, nose normal Eyes: Conjunctivae/corneas clear. No icterus. No ptosis. Neck: supple, no meningeal signs Oral: no thrush Cardiovascular: S1, S2 normal. Respiratory: rhonchi bilaterally GI: Midline abdominal VAC. bowel sounds +, Colostomy + drains + Musculoskeletal: anasarca, pedal edema + but improving Skin: No rash or abscess Hem/Lymphatic: No palpable cervical or supraclavicular nodes. No lymphangitis Psych: no agitation Neurological: awake, alert - Constitutional Vitals: Vital Signs Temp Pulse Resp BP Pulse Ox 99.5 F 79 34 H 172/86 93 10/28/19 08:00 10/28/19 10:00 10/28/19 10:00 10/28/19 10:00 10/28/19 10:00 Temperature -Last 24 Hours Temperature 99.5 F Temperature 100.6 F Temperature 100.9 F Temperature 100.0 F Temperature 99.0 F Temperature 102.1 F Temperature 101.2 F - Labs CBC & Chem 7: 10/28/19 05:25 10/28/19 07:19 Labs: Abnormal lab results 10/27/19 10/27/19 10/28/19 Range/Units 11:33 17:45 05:25 RBC 2.85 L (3.65-5.03) M/mm3 Hgb 8.3 L (11.8-15.2) gm/dl Hct 26.8 L (35.5-45.6) % MCHC 31 L (32-34) % RDW 17.4 H (13.2-15.2) % Lymph % (Auto) 8.9 L (13.4-35.0) % Cannon % (Auto) 14.3 H (0.0-7.3) % Lymph # 0.8 L (1.2-5.4) K/mm3 Cannon # 1.3 H (0.0-0.8) K/mm3 Seg Neutrophils % 76.5 H (40.0-70.0) % BUN (9-20) mg/dL Creatinine (0.8-1.5) mg/dL Glucose (75-100) mg/dL POC Glucose 131 H 121 H (70-105) Calcium (8.4-10.2) mg/dL 10/28/19 10/28/19 Range/Units 05:49 07:19 RBC (3.65-5.03) M/mm3 Hgb (11.8-15.2) gm/dl Hct (35.5-45.6) % MCHC (32-34) % RDW (13.2-15.2) % Lymph % (Auto) (13.4-35.0) % Cannon % (Auto) (0.0-7.3) % Lymph # (1.2-5.4) K/mm3 Cannon # (0.0-0.8) K/mm3 Seg Neutrophils % (40.0-70.0) % BUN 23 H (9-20) mg/dL Creatinine 0.5 L (0.8-1.5) mg/dL Glucose 129 H (75-100) mg/dL POC Glucose 120 H (70-105) Calcium 8.0 L (8.4-10.2) mg/dL
[2019-10-28] MEDS: METOPROLOL TARTRATE 5 MG/5 ML INJ IV PRN ×2 (11:32→17:07)
--- NOTE | 2019-10-28 11:59 | Progress Note ---
Assessment and Plan 1. Status post exploration treated laparotomy with bowel resection for perforated viscus 2. Sepsis 3. Paroxysmal atrial fibrillation 4. Coronary artery disease status post PCI left ventricular ejection fraction 45-50% 5. COPD 6. Essential hypertension 7. Hyperlipidemia Plan. Patient is stable cardiac-devries continue present cardiac medication. Subjective Date of service: 10/28/19 Principal diagnosis: acute renal failure Interval history: Alert in no distress no cardiac complains. Objective Vital Signs Temp Pulse Pulse Pulse Resp Resp BP 10/28/19 11:32 82 181/91 10/28/19 11:00 80 33 H 168/86 10/28/19 10:00 79 34 H 172/86 10/28/19 09:00 81 36 H 178/76 10/28/19 08:57 80 25 H 10/28/19 08:07 78 30 H 10/28/19 08:06 10/28/19 08:00 99.5 F 78 38 H 177/98 10/28/19 07:00 75 35 H 170/93 10/28/19 06:00 81 38 H 186/94 10/28/19 05:21 83 181/87 10/28/19 05:00 85 37 H 168/83 10/28/19 04:00 80 38 H 175/87 10/28/19 03:46 100.6 F H 10/28/19 03:24 137/74 10/28/19 03:00 78 33 H 169/81 10/28/19 02:00 83 80 38 H 35 H 179/88 10/28/19 01:00 81 38 H 173/84 10/28/19 00:00 100.9 F H 75 37 H 151/66 10/27/19 23:00 86 38 H 172/64 10/27/19 22:00 115 H 35 H 165/55 10/27/19 21:55 104 H 165/55 10/27/19 21:06 119 H 36 H 153/84 10/27/19 21:00 85 35 H 153/84 10/27/19 20:52 85 10/27/19 20:00 100.0 F H 81 38 H 158/80 10/27/19 19:48 114 H 35 H 10/27/19 19:21 10/27/19 19:00 98 H 35 H 167/80 10/27/19 18:01 86 37 H 172/89 10/27/19 18:00 76 34 H 10/27/19 17:00 82 35 H 165/72 10/27/19 16:56 99.0 F 10/27/19 16:00 102.1 F H 80 78 37 H 176/80 10/27/19 15:00 81 35 H 160/75 10/27/19 14:39 10/27/19 14:01 110 H 38 H 172/77 10/27/19 14:00 97 H 83 34 H 38 H 10/27/19 13:46 110 H 171/90 10/27/19 13:00 109 H 38 H 172/83 10/27/19 12:01 83 36 H 159/75 10/27/19 12:00 101.2 F H 76 89 34 H Pulse Ox 10/28/19 11:32 10/28/19 11:00 93 10/28/19 10:00 94 10/28/19 09:00 93 10/28/19 08:57 10/28/19 08:07 10/28/19 08:06 95 10/28/19 08:00 94 10/28/19 07:00 95 10/28/19 06:00 96 10/28/19 05:21 10/28/19 05:00 94 10/28/19 04:00 93 10/28/19 03:46 10/28/19 03:24 10/28/19 03:00 92 10/28/19 02:00 93 10/28/19 01:00 94 10/28/19 00:00 92 10/27/19 23:00 95 10/27/19 22:00 94 10/27/19 21:55 10/27/19 21:06 95 10/27/19 21:00 94 10/27/19 20:52 10/27/19 20:00 93 10/27/19 19:48 10/27/19 19:21 94 10/27/19 19:00 97 10/27/19 18:01 97 10/27/19 18:00 92 10/27/19 17:00 94 10/27/19 16:56 10/27/19 16:00 91 10/27/19 15:00 97 10/27/19 14:39 96 10/27/19 14:01 96 10/27/19 14:00 92 10/27/19 13:46 10/27/19 13:00 97 10/27/19 12:01 96 10/27/19 12:00 92 - Physical Examination General: Appears Well, No Apparent Distress HEENT: Positive: PERRL Neck: Positive: trachea midline Cardiac: Positive: Reg Rate and Rhythm, Regular Rate, S1/S2, PMI, Laterally Displaced Lungs: Positive: No Wheeze, Rales, Rhonchi Neuro: Positive: Weakness Abdomen: Positive: Other (abdominal wound vac is in place) Extremities: Present: +1 Edema. Absent: edema - Labs and Meds CBC 10/28/19 Range/Units 05:25 WBC 8.9 (4.5-11.0) K/mm3 RBC 2.85 L (3.65-5.03) M/mm3 Hgb 8.3 L (11.8-15.2) gm/dl Hct 26.8 L (35.5-45.6) % Plt Count 242 (140-440) K/mm3 Lymph # 0.8 L (1.2-5.4) K/mm3 [place] # 1.3 H (0.0-0.8) K/mm3 Eos # 0.0 (0.0-0.4) K/mm3 Baso # 0.0 (0.0-0.1) K/mm3 Comprehensive Metabolic Panel 10/28/19 10/28/19 Range/Units 05:25 07:19 Sodium TNR 144 Potassium TNR 3.7 Chloride TNR 105.2 Carbon Dioxide TNR 23 BUN TNR 23 H Creatinine TNR 0.5 L Glucose TNR 129 H Calcium TNR 8.0 L
--- NOTE | 2019-10-28 14:12 | Progress Note ---
Assessment and Plan 1) Dehiscence of closure of fascia, superficial or muscular Current Visit: No Status: Acute Qualifiers: Encounter type: initial encounter Qualified Code(s): T81.32XA - Disruption of internal operation (surgical) wound, not elsewhere classified, initial encounter Plan to address problem: Pt stable. s/p ex lap with closure of abdominal wall and wound vac placement (10/05) - POD#21; s/p Re-exploration, washout, transection of colon, Abthera placement - 10/13 - POD#13; s/p abd washout, partial omentectomy, partial colectomy with colostomy - 10/16 POD#11. s/p abd washout, feeding tube placement, AbThera placement - 10/19 - POD#8; Abdominal washout and closure - 10/22 - POD#6 Overall, patient looks stable. Drains have minimal, thin guardado colored output. There is some staining of the tubing with old guardado material. Rec: 1) Neuro - Awake and appropriate. 2) CV - BP high - will defer to hospitalist team 3) Resp - Extubated. On HFNC. Need to work on pulmonary toilet. 4) GI - Ostomy looks good and is functioning - brown stool in bag Sump drains and wound vac not consistent with previous fluid appearance when he has leaked. Sump drains are working properly. No obvious leak is seen today. The fluid that we are currently draining is becoming more clear, minimal in amount. We will continue to monitor closely. Keep TF at 20cc/hr via Jejunal port as he is having ostomy funtion. Would not advance beyond 20cc/hr at this time. G port output is now gastric and no longer bilious, however still having high output. When stable from a respiratory standpoint, ok to start clear liquid diet. Would keep G-tube on suction as precaution until we start to see more function from the ostomy. 5) -monitor BUN/Cr - stable today 6) ID - Abx per ID. Enterococcus on cultures. + Fevers o/n. WBC count normal, urban cultures pending 7) Nutrition - TPN, TF at 20cc/hr via jejunal port 8) DVT prophylaxis - SCDs. Lovenox 9) Family - no family at bedside at this time 10) PT - will need rehab. Plan discussed with patient's RN and Dr. White Please call with questions. Subjective Date of service: 10/28/19 Narrative: Pt seen and examined. No overnight events noted. Continues to have fevers. Tolerating TF. Objective Vital Signs - 12hr 10/28/19 10/28/19 10/28/19 03:00 03:24 03:46 Temperature 100.6 F H Pulse Rate 78 Pulse Rate [ Anterior Bilateral Throughout] Respiratory 33 H Rate Respiratory Rate [Anterior Bilateral Throughout] Blood Pressure 169/81 137/74 O2 Sat by Pulse 92 Oximetry 10/28/19 10/28/19 10/28/19 04:00 05:00 05:21 Temperature Pulse Rate 80 85 83 Pulse Rate [ Anterior Bilateral Throughout] Respiratory 38 H 37 H Rate Respiratory Rate [Anterior Bilateral Throughout] Blood Pressure 175/87 168/83 181/87 O2 Sat by Pulse 93 94 Oximetry 10/28/19 10/28/19 10/28/19 06:00 07:00 08:00 Temperature 99.5 F Pulse Rate 81 75 78 Pulse Rate [ Anterior Bilateral Throughout] Respiratory 38 H 35 H 38 H Rate Respiratory Rate [Anterior Bilateral Throughout] Blood Pressure 186/94 170/93 177/98 O2 Sat by Pulse 96 95 94 Oximetry 10/28/19 10/28/19 10/28/19 08:06 08:07 08:57 Temperature Pulse Rate Pulse Rate [ 78 80 Anterior Bilateral Throughout] Respiratory Rate Respiratory 30 H 25 H Rate [Anterior Bilateral Throughout] Blood Pressure O2 Sat by Pulse 95 Oximetry 10/28/19 10/28/19 10/28/19 09:00 10:00 11:00 Temperature Pulse Rate 81 79 80 Pulse Rate [ Anterior Bilateral Throughout] Respiratory 36 H 34 H 33 H Rate Respiratory Rate [Anterior Bilateral Throughout] Blood Pressure 178/76 172/86 168/86 O2 Sat by Pulse 93 94 93 Oximetry 10/28/19 10/28/19 10/28/19 11:32 12:00 13:00 Temperature 100.7 F H Pulse Rate 82 80 82 Pulse Rate [ Anterior Bilateral Throughout] Respiratory 38 H 36 H Rate Respiratory Rate [Anterior Bilateral Throughout] Blood Pressure 181/91 186/91 184/94 O2 Sat by Pulse 92 93 Oximetry 10/28/19 10/28/19 13:17 14:00 Temperature Pulse Rate 83 Pulse Rate [ 81 Anterior Bilateral Throughout] Respiratory 37 H Rate Respiratory 28 H Rate [Anterior Bilateral Throughout] Blood Pressure 183/89 O2 Sat by Pulse 93 Oximetry - General physical appearance Narrative Exam: Gen: Awake and alert. NAD CV: s1, S2+ Resp: even and unlabored, on high sherry NC Abd: soft, NT, ND. Ext: + edema but improving - Labs 10/28/19 05:25 10/28/19 07:19 Diabetes panel 10/28/19 10/28/19 Range/Units 05:25 07:19 Sodium TNR 144 Potassium TNR 3.7 Chloride TNR 105.2 Carbon Dioxide TNR 23 BUN TNR 23 H Creatinine TNR 0.5 L Glucose TNR 129 H Calcium TNR 8.0 L Calcium panel 10/28/19 10/28/19 Range/Units 05:25 07:19 Calcium TNR 8.0 L Phosphorus TNR 3.50 D Pituitary panel 10/28/19 10/28/19 Range/Units 05:25 07:19 Sodium TNR 144 Potassium TNR 3.7 Chloride TNR 105.2 Carbon Dioxide TNR 23 BUN TNR 23 H Creatinine TNR 0.5 L Glucose TNR 129 H Calcium TNR 8.0 L Adrenal panel 10/28/19 10/28/19 Range/Units 05:25 07:19 Sodium TNR 144 Potassium TNR 3.7 Chloride TNR 105.2 Carbon Dioxide TNR 23 BUN TNR 23 H Creatinine TNR 0.5 L Glucose TNR 129 H Calcium TNR 8.0 L
[2019-10-28] MEDS: hydrALAZINE 20 MG/1 ML INJ IV PRN ×2 (14:24→19:51)
[2019-10-28] MEDS ORDERED: TOTAL PARENTERAL NUTRITION 2,400 ML IV SCH (20:00)
--- NOTE | 2019-10-28 20:02 | Progress Note ---
Assessment and Plan Imp: 1. Colon perforation/peritonitis/anastamotic leak s/p multiple surgeries 2. Sepsis 3. Acute respiratory failure, hypoxia 4. Obesity 5. KALI 6. Centrilobular emphysema, severe 7. Chronic nicotine dependence, cigarettes 8. HTN 9. CAD s/p PCI 10. Ischemic cardiomyopathy Rec: 1. ABX per ID 2. Wean HFNC to keep sats 88% or > 3. Cont. current nebs 4. Optimize nutrition; monitor elytes 5. DVT PPx 6. Stop smoking 7. Re: persistently elevated BP, resume home medication Lisinopril at 5mg daily (he takes 20mg daily at home) since renal function normal and no issues with K 8. Repeat labs and CXR in AM 9. Cont. ICU monitoring; will review office notes as I believe he should be on BIPAP QHS for KALI CCt 31 minutes No family present Subjective Date of service: 10/28/19 Principal diagnosis: acute renal failure Interval history: No events. Remains on HFNC at 40% FiO2. Somnolent but arouses and follows commands. Denies pain. + SOB which is a little better. BP running high despite Lopressor PO/IV and IV Hydralazine. Active Medications Acetaminophen (Tylenol) 650 mg FEEDTUBE Q4H PRN PRN Reason: Fever >100.5 Last Admin: 10/27/19 15:56 Dose: 650 mg Documented by: Albuterol (Proventil) 2.5 mg IH Q4HRT PRN PRN Reason: Shortness Of Breath Albuterol/Ipratropium (Duoneb *Not For Prn Use*) 1 ampul IH Q6HRT [facility] Last Admin: 10/28/19 19:36 Dose: 1 ampul Documented by: Amiodarone HCl (Cordarone) 200 mg PO QDAY [facility] Last Admin: 10/28/19 09:41 Dose: 200 mg Documented by: Lipase/Protease/Amylase (Shaggy Moreno 10,500 Unit) 1 each FEEDTUBE PRN PRN PRN Reason: For Clogged Feeding Tube Arformoterol Tartrate (Brovana Nebu) 15 mcg IH Q12HRT [facility] Last Admin: 10/28/19 19:36 Dose: 15 mcg Documented by: Budesonide (Pulmicort) 0.5 mg IH Q12HRT [facility] Last Admin: 10/28/19 19:36 Dose: 0.5 mg Documented by: Citalopram Hydrobromide (Celexa) 20 mg PO DAILY [facility] Last Admin: 10/28/19 09:41 Dose: 20 mg Documented by: Enoxaparin Sodium (Enoxaparin) 40 mg SUB-Q QDAY@2200 [facility] Last Admin: 10/27/19 21:54 Dose: 40 mg Documented by: Fentanyl (Sublimaze) 50 mcg IV Q2H PRN PRN Reason: PAIN SCORE </=5 Haloperidol Lactate (Haldol) 5 mg IV Q6H PRN PRN Reason: Agitation Last Admin: 10/26/19 10:51 Dose: 5 mg Documented by: Hydralazine HCl (Apresoline) 10 mg IV Q4HR PRN PRN Reason: Hypertension Last Admin: 10/28/19 19:51 Dose: 10 mg Documented by: Hydromorphone HCl (Dilaudid) 2 mg IV Q4H PRN PRN Reason: PAIN SCORE >/=6 Last Admin: 10/27/19 04:40 Dose: 2 mg Documented by: MEROPENEM/NS 1 GRAM/100 ML (Merrem/Ns 1 Gram/100 Ml) 1 gram in 100 mls @ 100 mls/hr IV Q8H [facility]; Protocol Last Admin: 10/28/19 18:32 Dose: 100 mls/hr Documented by: Micafungin Sodium 100 mg/ (Sodium Chloride) 100 mls @ 100 mls/hr IV QDAY [facility]; Protocol Last Admin: 10/28/19 10:00 Dose: 100 mls/hr Documented by: Vancomycin HCl 2,000 mg/ (Sodium Chloride) 540 mls @ 270 mls/hr IV Q8H [facility]; Protocol Last Admin: 10/28/19 13:28 Dose: 270 mls/hr Documented by: Amino Acids/Electrolytes/Dextrose (Tpn Adult) 2,400 mls @ 100 mls/hr IV DAILY@2000 [facility]; Protocol Stop: 10/29/19 19:59 Insulin Human Lispro (Humalog) 0 unit SUB-Q Q6HR [facility]; Protocol Last Admin: 10/28/19 05:47 Dose: Not Given Documented by: Lisinopril (Zestril) 5 mg PO QDAY [facility] Metoprolol Tartrate (Metoprolol) 2.5 mg IV Q4HR PRN PRN Reason: HR >130 Last Admin: 10/28/19 17:07 Dose: 2.5 mg Documented by: Metoprolol Tartrate (Metoprolol) 50 mg PO Q8HR [facility] Last Admin: 10/28/19 15:17 Dose: 50 mg Documented by: Multi-Ingred Cream/Lotion/Oil/Oint (Artificial Tears Ophth Oint) 1 applic OU Q4HR PRN PRN Reason: Dry Eye(s) Ondansetron HCl (Zofran) 4 mg IV Q3H PRN PRN Reason: Nausea And Vomiting Last Admin: 10/11/19 18:20 Dose: 4 mg Documented by: Pantoprazole Sodium (Protonix) 40 mg IV QDAY [facility] Last Admin: 10/28/19 09:42 Dose: 40 mg Documented by: Simple Syrup (Simple Syrup) 15 ml FEEDTUBE PRN PRN PRN Reason: Hypoglycemia Simple Syrup (Simple Syrup) 30 ml FEEDTUBE PRN PRN PRN Reason: Hypoglycemia Sodium Bicarbonate (Sodium Bicarbonate) 325 mg FEEDTUBE PRN PRN PRN Reason: For Clogged Feeding Tube Sodium Chloride (Sodium Chloride Flush Syringe 10 Ml) 10 ml IV PRN PRN PRN Reason: LINE FLUSH Last Admin: 10/19/19 09:29 Dose: 10 ml Documented by: Objective Vital Signs - 12hr 10/28/19 10/28/19 10/28/19 08:00 08:06 08:07 Temperature 99.5 F Pulse Rate 78 Pulse Rate [ 78 Anterior Bilateral Throughout] Respiratory 38 H Rate Respiratory 30 H Rate [Anterior Bilateral Throughout] Blood Pressure 177/98 O2 Sat by Pulse 94 95 Oximetry 10/28/19 10/28/19 10/28/19 08:57 09:00 10:00 Temperature Pulse Rate 81 79 Pulse Rate [ 80 Anterior Bilateral Throughout] Respiratory 36 H 34 H Rate Respiratory 25 H Rate [Anterior Bilateral Throughout] Blood Pressure 178/76 172/86 O2 Sat by Pulse 93 94 Oximetry 10/28/19 10/28/19 10/28/19 11:00 11:32 12:00 Temperature 100.7 F H Pulse Rate 80 82 81 Pulse Rate [ Anterior Bilateral Throughout] Respiratory 33 H 38 H Rate Respiratory Rate [Anterior Bilateral Throughout] Blood Pressure 168/86 181/91 186/91 O2 Sat by Pulse 93 94 Oximetry 10/28/19 10/28/19 10/28/19 13:00 13:17 14:00 Temperature Pulse Rate 82 83 Pulse Rate [ 81 Anterior Bilateral Throughout] Respiratory 36 H 37 H Rate Respiratory 28 H Rate [Anterior Bilateral Throughout] Blood Pressure 184/94 183/89 O2 Sat by Pulse 93 94 Oximetry 10/28/19 10/28/19 10/28/19 14:24 15:00 15:17 Temperature Pulse Rate 82 82 82 Pulse Rate [ Anterior Bilateral Throughout] Respiratory 38 H Rate Respiratory Rate [Anterior Bilateral Throughout] Blood Pressure 183/89 180/83 175/80 O2 Sat by Pulse 91 Oximetry 10/28/19 10/28/19 10/28/19 15:49 16:00 17:00 Temperature 99.8 F H Pulse Rate 77 82 Pulse Rate [ Anterior Bilateral Throughout] Respiratory 38 H 41 H Rate Respiratory Rate [Anterior Bilateral Throughout] Blood Pressure 176/91 182/99 O2 Sat by Pulse 94 92 Oximetry 10/28/19 10/28/19 10/28/19 17:07 18:00 19:00 Temperature Pulse Rate 83 85 90 Pulse Rate [ Anterior Bilateral Throughout] Respiratory 40 H 39 H Rate Respiratory Rate [Anterior Bilateral Throughout] Blood Pressure 188/83 182/88 185/90 O2 Sat by Pulse 92 93 Oximetry 10/28/19 10/28/19 10/28/19 19:36 19:39 19:51 Temperature Pulse Rate 89 Pulse Rate [ 90 Anterior Bilateral Throughout] Respiratory Rate Respiratory 40 H Rate [Anterior Bilateral Throughout] Blood Pressure 189/90 O2 Sat by Pulse 93 Oximetry Constitutional: alert, other (critically ill on HFNC) Eyes: non-icteric ENT: oropharynx moist Neck: supple Effort: mildly labored Ascultation: Bilateral: diminished breath sounds (bases) Cardiovascular: regular rate and rhythm (no mrg) Gastrointestinal: tender, other (obese, distended) Integumentary: normal Extremities: no cyanosis, pink and warm, edema (1+ bilateral LE edema) Neurologic: normal mental status, non-focal exam, pupils equal and round Psychiatric: mood appropriate, affect normal CBC and BMP: 10/28/19 05:25 10/28/19 07:19 ABG, PT/INR, D-dimer: ABG POC ABG pH 7.310 (7.35-7.45) L 12/04/19 05:41 ABG pH 7.390 pH Units (7.350-7.450) 10/23/19 04:47 POC ABG pCO2 52.8 (35-45) H 10/17/19 05:41 ABG pCO2 48.4 mm Hg 10/23/19 04:47 POC ABG pO2 70 (80-105) L 10/17/19 05:41 ABG pO2 68.9 mm Hg (80.0-90.0) L 10/23/19 04:47 POC ABG HCO3 26.6 (22-26 mml/L) 10/17/19 05:41 POC ABG Total CO2 28 (23-27mmol/L) 10/17/19 05:41 POC ABG O2 Sat 92 10/17/19 05:41 ABG O2 Saturation 96.6 % (95.0-99.0) 10/23/19 04:47 Abnormal lab findings: Abnormal Labs 10/06/19 10/06/19 10/07/19 05:36 05:36 05:54 WBC 21.8 H 21.5 H RBC 3.55 L Hgb 10.9 L Hct 32.7 L MCHC RDW Plt Count Lymph % (Auto) Boundary % (Auto) Lymph # Boundary # Seg Neutrophils % Seg Neuts % (Manual) 91.0 H Lymphocytes % (Manual) 2.0 L Seg Neutrophils # Seg Neutrophils # Man 19.8 H Lymphocytes # (Manual) 0.4 L Monocytes # (Manual) 1.1 H POC ABG pH ABG pH POC ABG pCO2 POC ABG pO2 ABG pO2 ABG HCO3 ABG Base Excess ABG Hemoglobin Oxyhemoglobin Sodium 135 L Potassium Chloride 95.9 L Carbon Dioxide BUN Creatinine 0.7 L Glucose POC Glucose Calcium Phosphorus Magnesium Direct Bilirubin AST Alkaline Phosphatase C-Reactive Protein Serum Total Protein Total Protein 5.7 L Albumin 2.5 L Prealbumin Zgkbz-5-Ifnkajxeu Cdpxp-7-Uraevzdwz Gamma Globulins PEP Interpretation Triglycerides Urine pH Urine Creatinine Urine Total Protein Digoxin Crossmatch 10/07/19 10/09/19 10/09/19 05:54 10:52 10:52 WBC 16.6 H RBC Hgb Hct MCHC RDW Plt Count 498 H Lymph % (Auto) Boundary % (Auto) Lymph # Boundary # Seg Neutrophils % Seg Neuts % (Manual) 93.0 H Lymphocytes % (Manual) 5.0 L Seg Neutrophils # Seg Neutrophils # Man 15.4 H Lymphocytes # (Manual) 0.8 L Monocytes # (Manual) POC ABG pH ABG pH POC ABG pCO2 POC ABG pO2 ABG pO2 ABG HCO3 ABG Base Excess ABG Hemoglobin Oxyhemoglobin Sodium Potassium Chloride 97.9 L Carbon Dioxide 20 L D BUN 23 H Creatinine 1.7 H D Glucose 109 H POC Glucose Calcium 8.1 L Phosphorus Magnesium Direct Bilirubin AST Alkaline Phosphatase C-Reactive Protein Serum Total Protein Total Protein Albumin Prealbumin Xaoji-5-Mnmfujjsb Uivrl-7-Uomwgekhv Gamma Globulins PEP Interpretation Triglycerides Urine pH Urine Creatinine Urine Total Protein Digoxin Crossmatch 10/09/19 10/10/19 10/10/19 17:23 05:30 05:30 WBC 14.6 H RBC Hgb 11.1 L Hct 33.5 L MCHC RDW Plt Count 527 H Lymph % (Auto) Boundary % (Auto) Lymph # Boundary # Seg Neutrophils % Seg Neuts % (Manual) Lymphocytes % (Manual) Seg Neutrophils # Seg Neutrophils # Man Lymphocytes # (Manual) Monocytes # (Manual) POC ABG pH ABG pH POC ABG pCO2 POC ABG pO2 ABG pO2 ABG HCO3 ABG Base Excess ABG Hemoglobin Oxyhemoglobin Sodium 130 L D Potassium 5.1 H Chloride 90.0 L 91.0 L Carbon Dioxide 20 L 20 L BUN 27 H 35 H Creatinine 1.9 H 2.0 H Glucose 104 H POC Glucose Calcium Phosphorus Magnesium Direct Bilirubin AST Alkaline Phosphatase C-Reactive Protein Serum Total Protein Total Protein Albumin Prealbumin Rggvi-8-Seykewped Zqtxj-7-Gelcwbali Gamma Globulins PEP Interpretation Triglycerides Urine pH Urine Creatinine Urine Total Protein Digoxin Crossmatch 10/10/19 10/10/19 10/11/19 08:33 08:44 05:41 WBC 13.2 H RBC Hgb 11.3 L Hct 33.8 L MCHC RDW 15.3 H Plt Count 543 H Lymph % (Auto) Boundary % (Auto) Lymph # Boundary # Seg Neutrophils % Seg Neuts % (Manual) Lymphocytes % (Manual) Seg Neutrophils # Seg Neutrophils # Man Lymphocytes # (Manual) Monocytes # (Manual) POC ABG pH ABG pH POC ABG pCO2 POC ABG pO2 ABG pO2 ABG HCO3 ABG Base Excess ABG Hemoglobin Oxyhemoglobin Sodium Potassium Chloride Carbon Dioxide BUN Creatinine Glucose 113 H POC Glucose 117 H Calcium Phosphorus Magnesium Direct Bilirubin AST Alkaline Phosphatase C-Reactive Protein Serum Total Protein Total Protein Albumin Prealbumin Njcsp-8-Xoqkjsvwx Wotfy-4-Kxuvqelta Gamma Globulins PEP Interpretation Triglycerides Urine pH Urine Creatinine Urine Total Protein Digoxin Crossmatch 10/11/19 10/11/19 10/11/19 05:41 06:23 06:23 WBC RBC Hgb Hct MCHC RDW Plt Count Lymph % (Auto) Boundary % (Auto) Lymph # Boundary # Seg Neutrophils % Seg Neuts % (Manual) Lymphocytes % (Manual) Seg Neutrophils # Seg Neutrophils # Man Lymphocytes # (Manual) Monocytes # (Manual) POC ABG pH ABG pH POC ABG pCO2 POC ABG pO2 ABG pO2 ABG HCO3 ABG Base Excess ABG Hemoglobin Oxyhemoglobin Sodium 134 L Potassium Chloride 96.3 L Carbon Dioxide BUN 37 H Creatinine Glucose 58 L POC Glucose Calcium Phosphorus 4.90 H Magnesium Direct Bilirubin AST Alkaline Phosphatase C-Reactive Protein Serum Total Protein Total Protein Albumin Prealbumin Kfiym-5-Pdalzvkwa Ashqx-3-Nphbtmept Gamma Globulins PEP Interpretation Triglycerides Urine pH Urine Creatinine 118.2 H 116.8 H Urine Total Protein 105 H 104 H Digoxin Crossmatch 10/11/19 10/12/19 10/12/19 09:00 06:09 06:09 WBC 13.8 H RBC 3.39 L Hgb 10.2 L Hct 30.9 L MCHC RDW 15.5 H Plt Count 459 H Lymph % (Auto) Boundary % (Auto) Lymph # Boundary # Seg Neutrophils % Seg Neuts % (Manual) Lymphocytes % (Manual) Seg Neutrophils # Seg Neutrophils # Man Lymphocytes # (Manual) Monocytes # (Manual) POC ABG pH ABG pH POC ABG pCO2 POC ABG pO2 ABG pO2 ABG HCO3 ABG Base Excess ABG Hemoglobin Oxyhemoglobin Sodium 131 L Potassium Chloride 96.2 L Carbon Dioxide 21 L BUN 43 H Creatinine Glucose 72 L POC Glucose Calcium Phosphorus Magnesium Direct Bilirubin AST Alkaline Phosphatase C-Reactive Protein Serum Total Protein 5.2 L Total Protein Albumin 1.9 L Prealbumin Gvkhw-9-Gdioazuhs 0.9 H Xqjde-3-Fprmxktsy 1.0 H Gamma Globulins 0.7 L PEP Interpretation see below H Triglycerides Urine pH Urine Creatinine Urine Total Protein Digoxin Crossmatch 10/12/19 10/12/1919 08:20 09:30 09:30 WBC RBC Hgb Hct MCHC RDW Plt Count Lymph % (Auto) Boundary % (Auto) Lymph # Boundary # Seg Neutrophils % Seg Neuts % (Manual) Lymphocytes % (Manual) Seg Neutrophils # Seg Neutrophils # Man Lymphocytes # (Manual) Monocytes # (Manual) POC ABG pH ABG pH POC ABG pCO2 POC ABG pO2 63 L ABG pO2 ABG HCO3 ABG Base Excess ABG Hemoglobin Oxyhemoglobin Sodium Potassium Chloride Carbon Dioxide BUN Creatinine Glucose POC Glucose Calcium Phosphorus Magnesium 2.50 H Direct Bilirubin 0.3 H AST Alkaline Phosphatase C-Reactive Protein Serum Total Protein Total Protein 5.1 L Albumin 2.2 L Prealbumin Uhjok-9-Fqrbprqrl Lggau-9-Bsoafdrcu Gamma Globulins PEP Interpretation Triglycerides Urine pH Urine Creatinine Urine Total Protein Digoxin Crossmatch 10/13/19 10/13/19 10/13/19 04:20 04:20 13:20 WBC 15.7 H RBC 3.64 L Hgb 10.9 L Hct 33.1 L MCHC RDW 15.8 H Plt Count 488 H Lymph % (Auto) Boundary % (Auto) Lymph # Boundary # Seg Neutrophils % Seg Neuts % (Manual) Lymphocytes % (Manual) Seg Neutrophils # Seg Neutrophils # Man Lymphocytes # (Manual) Monocytes # (Manual) POC ABG pH ABG pH POC ABG pCO2 POC ABG pO2 ABG pO2 ABG HCO3 ABG Base Excess ABG Hemoglobin Oxyhemoglobin Sodium Potassium Chloride Carbon Dioxide BUN 28 H Creatinine Glucose POC Glucose Calcium Phosphorus Magnesium Direct Bilirubin AST Alkaline Phosphatase C-Reactive Protein Serum Total Protein Total Protein Albumin Prealbumin Xcbya-3-Indtrvuhy Pugpg-8-Utksfczzg Gamma Globulins PEP Interpretation Triglycerides Urine pH Urine Creatinine Urine Total Protein Digoxin Crossmatch See Detail 10/13/19 10/13/19 10/14/19 18:24 20:05 04:47 WBC 24.2 H RBC Hgb 10.9 L Hct 34.2 L MCHC RDW 17.0 H Plt Count 442 H Lymph % (Auto) Boundary % (Auto) Lymph # Boundary # Seg Neutrophils % Seg Neuts % (Manual) Lymphocytes % (Manual) Seg Neutrophils # Seg Neutrophils # Man Lymphocytes # (Manual) Monocytes # (Manual) POC ABG pH ABG pH 7.180 L* 7.278 L POC ABG pCO2 POC ABG pO2 ABG pO2 130.7 H ABG HCO3 ABG Base Excess -6.5 L -6.5 L ABG Hemoglobin 12.2 L 12.3 L Oxyhemoglobin 92.9 L Sodium Potassium Chloride Carbon Dioxide BUN Creatinine Glucose POC Glucose Calcium Phosphorus Magnesium Direct Bilirubin AST Alkaline Phosphatase C-Reactive Protein Serum Total Protein Total Protein Albumin Prealbumin Iafja-2-Qsdogqdno Rzauu-6-Wjocjzmzd Gamma Globulins PEP Interpretation Triglycerides Urine pH Urine Creatinine Urine Total Protein Digoxin Crossmatch 10/14/19 10/14/19 10/14/19 04:47 05:40 10:14 WBC RBC Hgb Hct MCHC RDW Plt Count Lymph % (Auto) Boundary % (Auto) Lymph # Boundary # Seg Neutrophils % Seg Neuts % (Manual) Lymphocytes % (Manual) Seg Neutrophils # Seg Neutrophils # Man Lymphocytes # (Manual) Monocytes # (Manual) POC ABG pH ABG pH POC ABG pCO2 POC ABG pO2 ABG pO2 76.3 L ABG HCO3 19.1 L ABG Base Excess -5.8 L ABG Hemoglobin 10.9 L Oxyhemoglobin 93.4 L Sodium Potassium 5.1 H D Chloride 109.2 H Carbon Dioxide 17 L BUN 38 H Creatinine 1.8 H D Glucose 104 H POC Glucose Calcium 7.4 L Phosphorus 5.60 H Magnesium Direct Bilirubin AST Alkaline Phosphatase C-Reactive Protein Serum Total Protein Total Protein Albumin Prealbumin Hvacw-6-Cpecoqfhe Seabu-0-Ukximtobr Gamma Globulins PEP Interpretation Triglycerides Urine pH Urine Creatinine Urine Total Protein Digoxin Crossmatch 10/14/19 10/15/19 10/15/19 23:46 04:32 04:32 WBC 15.5 H RBC 2.89 L Hgb 8.8 L Hct 27.3 L D MCHC RDW 16.6 H Plt Count Lymph % (Auto) Boundary % (Auto) Lymph # Boundary # Seg Neutrophils % Seg Neuts % (Manual) Lymphocytes % (Manual) Seg Neutrophils # Seg Neutrophils # Man Lymphocytes # (Manual) Monocytes # (Manual) POC ABG pH ABG pH POC ABG pCO2 POC ABG pO2 ABG pO2 ABG HCO3 ABG Base Excess ABG Hemoglobin Oxyhemoglobin Sodium 147 H Potassium Chloride 114.0 H Carbon Dioxide 19 L BUN 42 H Creatinine Glucose 112 H POC Glucose 113 H Calcium 7.3 L Phosphorus Magnesium Direct Bilirubin AST 72 H Alkaline Phosphatase C-Reactive Protein 30.60 H Serum Total Protein Total Protein 4.0 L D Albumin 1.7 L Prealbumin 0.030 L Jcped-1-Vfvxlimli Iiqqa-2-Olyaileyb Gamma Globulins PEP Interpretation Triglycerides Urine pH Urine Creatinine Urine Total Protein Digoxin Crossmatch 10/15/19 10/15/19 10/15/19 05:30 12:08 17:23 WBC RBC Hgb Hct MCHC RDW Plt Count Lymph % (Auto) Boundary % (Auto) Lymph # Boundary # Seg Neutrophils % Seg Neuts % (Manual) Lymphocytes % (Manual) Seg Neutrophils # Seg Neutrophils # Man Lymphocytes # (Manual) Monocytes # (Manual) POC ABG pH ABG pH 7.296 L POC ABG pCO2 POC ABG pO2 ABG pO2 114.7 H ABG HCO3 ABG Base Excess -3.7 L ABG Hemoglobin 8.9 L Oxyhemoglobin Sodium Potassium Chloride Carbon Dioxide BUN Creatinine Glucose POC Glucose 106 H 106 H Calcium Phosphorus Magnesium Direct Bilirubin AST Alkaline Phosphatase C-Reactive Protein Serum Total Protein Total Protein Albumin Prealbumin Regab-7-Kmmiegpge Ghddn-2-Obewlodpo Gamma Globulins PEP Interpretation Triglycerides Urine pH Urine Creatinine Urine Total Protein Digoxin Crossmatch 10/16/19 10/16/19 10/16/19 00:07 04:44 05:24 WBC RBC Hgb Hct MCHC RDW Plt Count Lymph % (Auto) Boundary % (Auto) Lymph # Boundary # Seg Neutrophils % Seg Neuts % (Manual) Lymphocytes % (Manual) Seg Neutrophils # Seg Neutrophils # Man Lymphocytes # (Manual) Monocytes # (Manual) POC ABG pH ABG pH POC ABG pCO2 POC ABG pO2 ABG pO2 ABG HCO3 ABG Base Excess ABG Hemoglobin Oxyhemoglobin Sodium 150 H Potassium Chloride 115.8 H Carbon Dioxide BUN 35 H Creatinine Glucose 129 H POC Glucose 119 H 129 H Calcium 7.3 L Phosphorus 1.80 L D Magnesium Direct Bilirubin AST Alkaline Phosphatase C-Reactive Protein Serum Total Protein Total Protein Albumin Prealbumin Jlrxm-0-Lkjxinxjw Tkpum-2-Toxepykxr Gamma Globulins PEP Interpretation Triglycerides Urine pH Urine Creatinine Urine Total Protein Digoxin Crossmatch 10/16/19 10/16/19 10/16/19 06:53 09:20 11:58 WBC 14.6 H RBC 2.70 L Hgb 8.1 L Hct 25.2 L MCHC RDW 16.7 H Plt Count Lymph % (Auto) Boundary % (Auto) Lymph # Boundary # Seg Neutrophils % Seg Neuts % (Manual) 79.0 H Lymphocytes % (Manual) 4.0 L Seg Neutrophils # Seg Neutrophils # Man 11.5 H Lymphocytes # (Manual) 0.6 L Monocytes # (Manual) POC ABG pH ABG pH POC ABG pCO2 47.0 H POC ABG pO2 ABG pO2 ABG HCO3 ABG Base Excess ABG Hemoglobin Oxyhemoglobin Sodium Potassium Chloride Carbon Dioxide BUN Creatinine Glucose POC Glucose Calcium Phosphorus Magnesium Direct Bilirubin AST Alkaline Phosphatase C-Reactive Protein Serum Total Protein Total Protein Albumin Prealbumin Lgeiw-7-Fqqblqzhc Mfhej-7-Pjdkfkepo Gamma Globulins PEP Interpretation Triglycerides Urine pH Urine Creatinine Urine Total Protein Digoxin Crossmatch See Detail 10/16/19 10/16/19 10/16/19 15:23 17:50 23:58 WBC RBC Hgb Hct MCHC RDW Plt Count Lymph % (Auto) Boundary % (Auto) Lymph # Boundary # Seg Neutrophils % Seg Neuts % (Manual) Lymphocytes % (Manual) Seg Neutrophils # Seg Neutrophils # Man Lymphocytes # (Manual) Monocytes # (Manual) POC ABG pH ABG pH POC ABG pCO2 POC ABG pO2 ABG pO2 ABG HCO3 ABG Base Excess ABG Hemoglobin Oxyhemoglobin Sodium Potassium Chloride Carbon Dioxide BUN Creatinine Glucose POC Glucose 221 H 201 H 179 H Calcium Phosphorus Magnesium Direct Bilirubin AST Alkaline Phosphatase C-Reactive Protein Serum Total Protein Total Protein Albumin Prealbumin Qzkch-1-Xwzzpbewk Wrzpo-1-Ahjxtzlrr Gamma Globulins PEP Interpretation Triglycerides Urine pH Urine Creatinine Urine Total Protein Digoxin Crossmatch 10/17/19 10/17/19 10/17/19 04:08 04:08 05:41 WBC 22.3 H RBC 3.35 L Hgb 10.0 L Hct 31.2 L D MCHC RDW 16.1 H Plt Count Lymph % (Auto) Boundary % (Auto) Lymph # Boundary # Seg Neutrophils % Seg Neuts % (Manual) Lymphocytes % (Manual) Seg Neutrophils # Seg Neutrophils # Man Lymphocytes # (Manual) Monocytes # (Manual) POC ABG pH 7.310 L ABG pH POC ABG pCO2 52.8 H POC ABG pO2 70 L ABG pO2 ABG HCO3 ABG Base Excess ABG Hemoglobin Oxyhemoglobin Sodium 147 H Potassium Chloride 114.9 H Carbon Dioxide BUN 36 H Creatinine Glucose 165 H POC Glucose Calcium 6.9 L Phosphorus 2.20 L D Magnesium Direct Bilirubin AST Alkaline Phosphatase C-Reactive Protein Serum Total Protein Total Protein Albumin Prealbumin Yreue-0-Zuexwokgd Yexok-3-Ieiyhbrxx Gamma Globulins PEP Interpretation Triglycerides Urine pH Urine Creatinine Urine Total Protein Digoxin Crossmatch 10/17/19 10/17/19 10/17/19 05:42 11:33 18:17 WBC RBC Hgb Hct MCHC RDW Plt Count Lymph % (Auto) Boundary % (Auto) Lymph # Boundary # Seg Neutrophils % Seg Neuts % (Manual) Lymphocytes % (Manual) Seg Neutrophils # Seg Neutrophils # Man Lymphocytes # (Manual) Monocytes # (Manual) POC ABG pH ABG pH POC ABG pCO2 POC ABG pO2 ABG pO2 ABG HCO3 ABG Base Excess ABG Hemoglobin Oxyhemoglobin Sodium Potassium Chloride Carbon Dioxide BUN Creatinine Glucose POC Glucose 149 H 154 H 163 H Calcium Phosphorus Magnesium Direct Bilirubin AST Alkaline Phosphatase C-Reactive Protein Serum Total Protein Total Protein Albumin Prealbumin Niajp-0-Vsedpeyxq Bihmd-6-Rloffidpg Gamma Globulins PEP Interpretation Triglycerides Urine pH Urine Creatinine Urine Total Protein Digoxin Crossmatch 10/17/19 10/18/19 10/18/19 23:34 03:29 04:50 WBC RBC Hgb Hct MCHC RDW Plt Count Lymph % (Auto) Boundary % (Auto) Lymph # Boundary # Seg Neutrophils % Seg Neuts % (Manual) Lymphocytes % (Manual) Seg Neutrophils # Seg Neutrophils # Man Lymphocytes # (Manual) Monocytes # (Manual) POC ABG pH ABG pH POC ABG pCO2 POC ABG pO2 ABG pO2 78.8 L ABG HCO3 ABG Base Excess ABG Hemoglobin 8.8 L Oxyhemoglobin Sodium Potassium Chloride 111.8 H Carbon Dioxide BUN 27 H Creatinine 0.6 L Glucose 140 H POC Glucose 135 H Calcium 7.1 L Phosphorus 1.80 L Magnesium Direct Bilirubin AST Alkaline Phosphatase C-Reactive Protein Serum Total Protein Total Protein Albumin Prealbumin Noccf-8-Exijpnboi Qoori-6-Katyrckij Gamma Globulins PEP Interpretation Triglycerides Urine pH Urine Creatinine Urine Total Protein Digoxin Crossmatch 10/18/19 10/18/19 10/18/19 05:45 11:19 18:26 WBC RBC Hgb Hct MCHC RDW Plt Count Lymph % (Auto) Boundary % (Auto) Lymph # Boundary # Seg Neutrophils % Seg Neuts % (Manual) Lymphocytes % (Manual) Seg Neutrophils # Seg Neutrophils # Man Lymphocytes # (Manual) Monocytes # (Manual) POC ABG pH ABG pH POC ABG pCO2 POC ABG pO2 ABG pO2 ABG HCO3 ABG Base Excess ABG Hemoglobin Oxyhemoglobin Sodium Potassium Chloride Carbon Dioxide BUN Creatinine Glucose POC Glucose 145 H 152 H 125 H Calcium Phosphorus Magnesium Direct Bilirubin AST Alkaline Phosphatase C-Reactive Protein Serum Total Protein Total Protein Albumin Prealbumin Mkhkl-1-Bzpuczleh Swnjm-3-Blwrfqirf Gamma Globulins PEP Interpretation Triglycerides Urine pH Urine Creatinine Urine Total Protein Digoxin Crossmatch 10/18/19 10/19/19 10/19/19 23:27 04:21 04:21 WBC RBC Hgb Hct MCHC RDW Plt Count Lymph % (Auto) Boundary % (Auto) Lymph # Boundary # Seg Neutrophils % Seg Neuts % (Manual) Lymphocytes % (Manual) Seg Neutrophils # Seg Neutrophils # Man Lymphocytes # (Manual) Monocytes # (Manual) POC ABG pH ABG pH POC ABG pCO2 POC ABG pO2 ABG pO2 ABG HCO3 ABG Base Excess ABG Hemoglobin Oxyhemoglobin Sodium Potassium Chloride 108.4 H Carbon Dioxide BUN 22 H Creatinine 0.5 L Glucose 123 H POC Glucose 127 H Calcium 7.4 L Phosphorus 1.80 L Magnesium Direct Bilirubin AST Alkaline Phosphatase C-Reactive Protein Serum Total Protein Total Protein Albumin Prealbumin [id number] Gamma Globulins PEP Interpretation Triglycerides Urine pH Urine Creatinine Urine Total Protein Digoxin 0.7 L Crossmatch 10/19/19 10/19/19 10/19/19 05:00 05:35 11:26 WBC RBC Hgb Hct MCHC RDW Plt Count Lymph % (Auto) Boundary % (Auto) Lymph # Boundary # Seg Neutrophils % Seg Neuts % (Manual) Lymphocytes % (Manual) Seg Neutrophils # Seg Neutrophils # Man Lymphocytes # (Manual) Monocytes # (Manual) POC ABG pH ABG pH 7.456 H POC ABG pCO2 POC ABG pO2 ABG pO2 78.8 L ABG HCO3 ABG Base Excess ABG Hemoglobin 5.6 L Oxyhemoglobin Sodium Potassium Chloride Carbon Dioxide BUN Creatinine Glucose POC Glucose 124 H 111 H Calcium Phosphorus Magnesium Direct Bilirubin AST Alkaline Phosphatase C-Reactive Protein Serum Total Protein Total Protein Albumin Prealbumin Mauwk-6-Vhbscizut Mdvdg-1-Hcapcezzp Gamma Globulins PEP Interpretation Triglycerides Urine pH Urine Creatinine Urine Total Protein Digoxin Crossmatch 10/19/19 10/20/19 10/20/19 23:23 04:50 05:17 WBC RBC Hgb Hct MCHC RDW Plt Count Lymph % (Auto) Boundary % (Auto) Lymph # Boundary # Seg Neutrophils % Seg Neuts % (Manual) Lymphocytes % (Manual) Seg Neutrophils # Seg Neutrophils # Man Lymphocytes # (Manual) Monocytes # (Manual) POC ABG pH ABG pH POC ABG pCO2 POC ABG pO2 ABG pO2 ABG HCO3 ABG Base Excess ABG Hemoglobin Oxyhemoglobin Sodium Potassium Chloride 108.1 H Carbon Dioxide BUN Creatinine 0.4 L Glucose 134 H POC Glucose 129 H 123 H Calcium 7.1 L Phosphorus Magnesium Direct Bilirubin AST Alkaline Phosphatase C-Reactive Protein Serum Total Protein Total Protein Albumin Prealbumin Csxpb-7-Ruxmlwdng Flgmb-1-Xbvhyntqw Gamma Globulins PEP Interpretation Triglycerides Urine pH Urine Creatinine Urine Total Protein Digoxin Crossmatch 10/20/19 10/20/19 10/21/19 11:40 19:06 05:08 WBC RBC Hgb Hct MCHC RDW Plt Count Lymph % (Auto) Boundary % (Auto) Lymph # Boundary # Seg Neutrophils % Seg Neuts % (Manual) Lymphocytes % (Manual) Seg Neutrophils # Seg Neutrophils # Man Lymphocytes # (Manual) Monocytes # (Manual) POC ABG pH ABG pH POC ABG pCO2 POC ABG pO2 ABG pO2 ABG HCO3 ABG Base Excess ABG Hemoglobin Oxyhemoglobin Sodium Potassium Chloride Carbon Dioxide BUN Creatinine Glucose POC Glucose 139 H 117 H 131 H Calcium Phosphorus Magnesium Direct Bilirubin AST Alkaline Phosphatase C-Reactive Protein Serum Total Protein Total Protein Albumin Prealbumin Dxsaa-5-Dixdjafoc Kbbvc-4-Pxweoayyf Gamma Globulins PEP Interpretation Triglycerides Urine pH Urine Creatinine Urine Total Protein Digoxin Crossmatch 10/21/19 10/21/19 10/21/19 05:30 12:04 17:31 WBC RBC Hgb Hct MCHC RDW Plt Count Lymph % (Auto) Boundary % (Auto) Lymph # Boundary # Seg Neutrophils % Seg Neuts % (Manual) Lymphocytes % (Manual) Seg Neutrophils # Seg Neutrophils # Man Lymphocytes # (Manual) Monocytes # (Manual) POC ABG pH ABG pH POC ABG pCO2 POC ABG pO2 ABG pO2 ABG HCO3 ABG Base Excess ABG Hemoglobin Oxyhemoglobin Sodium Potassium Chloride 107.8 H Carbon Dioxide BUN Creatinine 0.5 L Glucose 119 H POC Glucose 119 H 110 H Calcium 7.6 L Phosphorus Magnesium Direct Bilirubin AST Alkaline Phosphatase C-Reactive Protein Serum Total Protein Total Protein Albumin Prealbumin Vyqxg-0-Jzyroqxgs Huegk-9-Mwzqoowbg Gamma Globulins PEP Interpretation Triglycerides Urine pH Urine Creatinine Urine Total Protein Digoxin Crossmatch 10/22/19 10/22/19 10/22/19 05:14 05:37 12:07 WBC RBC Hgb Hct MCHC RDW Plt Count Lymph % (Auto) Boundary % (Auto) Lymph # Boundary # Seg Neutrophils % Seg Neuts % (Manual) Lymphocytes % (Manual) Seg Neutrophils # Seg Neutrophils # Man Lymphocytes # (Manual) Monocytes # (Manual) POC ABG pH ABG pH POC ABG pCO2 POC ABG pO2 ABG pO2 ABG HCO3 ABG Base Excess ABG Hemoglobin Oxyhemoglobin Sodium Potassium Chloride Carbon Dioxide BUN Creatinine 0.5 L Glucose 116 H POC Glucose 110 H 126 H Calcium 7.7 L Phosphorus Magnesium Direct Bilirubin AST Alkaline Phosphatase C-Reactive Protein Serum Total Protein Total Protein Albumin Prealbumin Fuzdl-3-Rgusjbfyz Xpjll-9-Isnyorzmx Gamma Globulins PEP Interpretation Triglycerides Urine pH Urine Creatinine Urine Total Protein Digoxin Crossmatch 10/22/19 10/22/19 10/23/19 18:36 23:19 04:39 WBC RBC Hgb Hct MCHC RDW Plt Count Lymph % (Auto) Boundary % (Auto) Lymph # Boundary # Seg Neutrophils % Seg Neuts % (Manual) Lymphocytes % (Manual) Seg Neutrophils # Seg Neutrophils # Man Lymphocytes # (Manual) Monocytes # (Manual) POC ABG pH ABG pH POC ABG pCO2 POC ABG pO2 ABG pO2 ABG HCO3 ABG Base Excess ABG Hemoglobin Oxyhemoglobin Sodium Potassium Chloride Carbon Dioxide BUN Creatinine Glucose POC Glucose 120 H 127 H 112 H Calcium Phosphorus Magnesium Direct Bilirubin AST Alkaline Phosphatase C-Reactive Protein Serum Total Protein Total Protein Albumin Prealbumin Pozzq-0-Ylirwgfxo Fvroo-2-Nwkovknnj Gamma Globulins PEP Interpretation Triglycerides Urine pH Urine Creatinine Urine Total Protein Digoxin Crossmatch 10/23/19 10/23/19 10/23/19 04:47 05:15 10:44 WBC 18.3 H RBC 2.33 L Hgb 7.0 L Hct 21.5 L MCHC RDW 16.2 H Plt Count Lymph % (Auto) 4.9 L Boundary % (Auto) 8.1 H Lymph # 0.9 L Boundary # 1.5 H Seg Neutrophils % 86.7 H Seg Neuts % (Manual) Lymphocytes % (Manual) Seg Neutrophils # 15.9 H Seg Neutrophils # Man Lymphocytes # (Manual) Monocytes # (Manual) POC ABG pH ABG pH POC ABG pCO2 POC ABG pO2 ABG pO2 68.9 L ABG HCO3 28.7 H ABG Base Excess 3.4 H ABG Hemoglobin 6.6 L Oxyhemoglobin 94.1 L Sodium Potassium Chloride Carbon Dioxide BUN Creatinine 0.5 L Glucose 165 H POC Glucose Calcium 7.4 L Phosphorus Magnesium Direct Bilirubin AST Alkaline Phosphatase C-Reactive Protein Serum Total Protein Total Protein Albumin Prealbumin Xgsre-0-Pfkmflnfr Whnia-0-Yowkzfxzf Gamma Globulins PEP Interpretation Triglycerides Urine pH Urine Creatinine Urine Total Protein Digoxin Crossmatch 10/23/19 10/23/19 10/23/19 10:44 11:46 11:50 WBC RBC Hgb Hct MCHC RDW Plt Count Lymph % (Auto) Boundary % (Auto) Lymph # Boundary # Seg Neutrophils % Seg Neuts % (Manual) Lymphocytes % (Manual) Seg Neutrophils # Seg Neutrophils # Man Lymphocytes # (Manual) Monocytes # (Manual) POC ABG pH ABG pH POC ABG pCO2 POC ABG pO2 ABG pO2 ABG HCO3 ABG Base Excess ABG Hemoglobin Oxyhemoglobin Sodium Potassium Chloride Carbon Dioxide BUN Creatinine Glucose POC Glucose 138 H Calcium Phosphorus Magnesium Direct Bilirubin 0.7 H AST Alkaline Phosphatase C-Reactive Protein Serum Total Protein Total Protein 4.5 L Albumin 1.2 L Prealbumin Jyjjq-5-Zoplifegf Gxytt-2-Rgbxngylm Gamma Globulins PEP Interpretation Triglycerides Urine pH Urine Creatinine Urine Total Protein Digoxin Crossmatch See Detail 10/23/19 10/24/19 10/24/19 17:53 00:07 05:05 WBC RBC Hgb Hct MCHC RDW Plt Count Lymph % (Auto) Boundary % (Auto) Lymph # Boundary # Seg Neutrophils % Seg Neuts % (Manual) Lymphocytes % (Manual) Seg Neutrophils # Seg Neutrophils # Man Lymphocytes # (Manual) Monocytes # (Manual) POC ABG pH ABG pH POC ABG pCO2 POC ABG pO2 ABG pO2 ABG HCO3 ABG Base Excess ABG Hemoglobin Oxyhemoglobin Sodium Potassium 3.5 L Chloride Carbon Dioxide BUN Creatinine 0.5 L Glucose 116 H POC Glucose 137 H 110 H Calcium 8.0 L Phosphorus Magnesium Direct Bilirubin AST Alkaline Phosphatase C-Reactive Protein Serum Total Protein Total Protein Albumin Prealbumin Tqmbx-7-Lgrsjzyia Czfum-2-Chywmjept Gamma Globulins PEP Interpretation Triglycerides Urine pH Urine Creatinine Urine Total Protein Digoxin Crossmatch 10/24/19 10/24/19 10/24/19 05:05 11:56 13:00 WBC 13.0 H RBC 2.73 L Hgb 8.0 L Hct 24.2 L MCHC RDW 17.9 H Plt Count Lymph % (Auto) 7.0 L Boundary % (Auto) 9.5 H Lymph # 0.9 L Boundary # 1.2 H Seg Neutrophils % 82.7 H Seg Neuts % (Manual) Lymphocytes % (Manual) Seg Neutrophils # 10.7 H Seg Neutrophils # Man Lymphocytes # (Manual) Monocytes # (Manual) POC ABG pH ABG pH POC ABG pCO2 POC ABG pO2 ABG pO2 ABG HCO3 ABG Base Excess ABG Hemoglobin Oxyhemoglobin Sodium Potassium Chloride Carbon Dioxide BUN Creatinine Glucose POC Glucose 159 H Calcium Phosphorus Magnesium Direct Bilirubin AST Alkaline Phosphatase C-Reactive Protein Serum Total Protein Total Protein Albumin Prealbumin Rgaga-9-Onayyjgtf Ltzxp-5-Qsphltxya Gamma Globulins PEP Interpretation Triglycerides 216 H Urine pH Urine Creatinine Urine Total Protein Digoxin Crossmatch 10/24/19 10/24/19 10/25/19 17:42 23:45 04:19 WBC RBC Hgb Hct MCHC RDW Plt Count Lymph % (Auto) Boundary % (Auto) Lymph # Boundary # Seg Neutrophils % Seg Neuts % (Manual) Lymphocytes % (Manual) Seg Neutrophils # Seg Neutrophils # Man Lymphocytes # (Manual) Monocytes # (Manual) POC ABG pH ABG pH POC ABG pCO2 POC ABG pO2 ABG pO2 ABG HCO3 ABG Base Excess ABG Hemoglobin Oxyhemoglobin Sodium 147 H Potassium Chloride Carbon Dioxide 33 H BUN Creatinine 0.5 L Glucose 111 H POC Glucose 120 H 116 H Calcium Phosphorus Magnesium Direct Bilirubin AST Alkaline Phosphatase C-Reactive Protein Serum Total Protein Total Protein 5.7 L D Albumin 2.5 L Prealbumin Armsf-0-Hoizvtysg Qjmak-8-Sohpfrypw Gamma Globulins PEP Interpretation Triglycerides 230 H Urine pH Urine Creatinine Urine Total Protein Digoxin Crossmatch 10/25/19 10/25/19 10/25/19 04:19 05:31 12:20 WBC RBC 2.69 L Hgb 8.1 L Hct 23.9 L MCHC RDW 17.3 H Plt Count Lymph % (Auto) Boundary % (Auto) Lymph # Boundary # Seg Neutrophils % Seg Neuts % (Manual) Lymphocytes % (Manual) Seg Neutrophils # Seg Neutrophils # Man Lymphocytes # (Manual) Monocytes # (Manual) POC ABG pH ABG pH POC ABG pCO2 POC ABG pO2 ABG pO2 ABG HCO3 ABG Base Excess ABG Hemoglobin Oxyhemoglobin Sodium Potassium Chloride Carbon Dioxide BUN Creatinine Glucose POC Glucose 126 H 114 H Calcium Phosphorus Magnesium Direct Bilirubin AST Alkaline Phosphatase C-Reactive Protein Serum Total Protein Total Protein Albumin Prealbumin Ytbby-3-Pioenlhdy Opexb-5-Hcdacncsv Gamma Globulins PEP Interpretation Triglycerides Urine pH Urine Creatinine Urine Total Protein Digoxin Crossmatch 10/25/19 10/25/19 10/26/19 18:30 23:09 06:15 WBC RBC Hgb Hct MCHC RDW Plt Count Lymph % (Auto) Boundary % (Auto) Lymph # Boundary # Seg Neutrophils % Seg Neuts % (Manual) Lymphocytes % (Manual) Seg Neutrophils # Seg Neutrophils # Man Lymphocytes # (Manual) Monocytes # (Manual) POC ABG pH ABG pH POC ABG pCO2 POC ABG pO2 ABG pO2 ABG HCO3 ABG Base Excess ABG Hemoglobin Oxyhemoglobin Sodium Potassium 3.5 L Chloride Carbon Dioxide BUN Creatinine 0.5 L Glucose 112 H POC Glucose 121 H 107 H Calcium 8.3 L Phosphorus Magnesium Direct Bilirubin AST Alkaline Phosphatase 148 H C-Reactive Protein Serum Total Protein Total Protein 5.9 L Albumin 2.4 L Prealbumin Omrlr-4-Jsoxikxlb Emjfg-6-Fiuirlpsd Gamma Globulins PEP Interpretation Triglycerides Urine pH Urine Creatinine Urine Total Protein Digoxin Crossmatch 10/26/19 10/26/19 10/26/19 06:15 12:21 17:35 WBC RBC Hgb Hct MCHC RDW Plt Count Lymph % (Auto) Boundary % (Auto) Lymph # Boundary # Seg Neutrophils % Seg Neuts % (Manual) Lymphocytes % (Manual) Seg Neutrophils # Seg Neutrophils # Man Lymphocytes # (Manual) Monocytes # (Manual) POC ABG pH ABG pH POC ABG pCO2 POC ABG pO2 ABG pO2 ABG HCO3 ABG Base Excess ABG Hemoglobin Oxyhemoglobin Sodium Potassium Chloride Carbon Dioxide BUN Creatinine Glucose POC Glucose 134 H 141 H Calcium Phosphorus Magnesium Direct Bilirubin AST Alkaline Phosphatase C-Reactive Protein Serum Total Protein Total Protein Albumin Prealbumin Gywoq-6-Lfetsipvf Vtanl-1-Msgqctmwl Gamma Globulins PEP Interpretation Triglycerides 185 H Urine pH Urine Creatinine Urine Total Protein Digoxin Crossmatch 10/26/19 10/27/19 10/27/19 Unknown 04:30 11:33 WBC RBC Hgb Hct MCHC RDW Plt Count Lymph % (Auto) Boundary % (Auto) Lymph # Boundary # Seg Neutrophils % Seg Neuts % (Manual) Lymphocytes % (Manual) Seg Neutrophils # Seg Neutrophils # Man Lymphocytes # (Manual) Monocytes # (Manual) POC ABG pH ABG pH POC ABG pCO2 POC ABG pO2 ABG pO2 ABG HCO3 ABG Base Excess ABG Hemoglobin Oxyhemoglobin Sodium Potassium 3.2 L Chloride Carbon Dioxide BUN 23 H Creatinine 0.6 L Glucose 130 H POC Glucose 131 H Calcium 7.9 L Phosphorus Magnesium Direct Bilirubin AST Alkaline Phosphatase C-Reactive Protein Serum Total Protein Total Protein Albumin Prealbumin Iuwmz-0-Zcmkiwxvp Lsffx-4-Wwhajmdkm Gamma Globulins PEP Interpretation Triglycerides Urine pH 9.0 H Urine Creatinine Urine Total Protein Digoxin Crossmatch 10/27/19 10/28/19 10/28/19 17:45 05:25 05:49 WBC RBC 2.85 L Hgb 8.3 L Hct 26.8 L MCHC 31 L RDW 17.4 H Plt Count Lymph % (Auto) 8.9 L Boundary % (Auto) 14.3 H Lymph # 0.8 L Boundary # 1.3 H Seg Neutrophils % 76.5 H Seg Neuts % (Manual) Lymphocytes % (Manual) Seg Neutrophils # Seg Neutrophils # Man Lymphocytes # (Manual) Monocytes # (Manual) POC ABG pH ABG pH POC ABG pCO2 POC ABG pO2 ABG pO2 ABG HCO3 ABG Base Excess ABG Hemoglobin Oxyhemoglobin Sodium Potassium Chloride Carbon Dioxide BUN Creatinine Glucose POC Glucose 121 H 120 H Calcium Phosphorus Magnesium Direct Bilirubin AST Alkaline Phosphatase C-Reactive Protein Serum Total Protein Total Protein Albumin Prealbumin Kljkl-4-Awbkbdxzs Vxnzr-3-Pboddrlfq Gamma Globulins PEP Interpretation Triglycerides Urine pH Urine Creatinine Urine Total Protein Digoxin Crossmatch 10/28/19 10/28/19 10/28/19 07:19 12:07 18:21 WBC RBC Hgb Hct MCHC RDW Plt Count Lymph % (Auto) Boundary % (Auto) Lymph # Boundary # Seg Neutrophils % Seg Neuts % (Manual) Lymphocytes % (Manual) Seg Neutrophils # Seg Neutrophils # Man Lymphocytes # (Manual) Monocytes # (Manual) POC ABG pH ABG pH POC ABG pCO2 POC ABG pO2 ABG pO2 ABG HCO3 ABG Base Excess ABG Hemoglobin Oxyhemoglobin Sodium Potassium Chloride Carbon Dioxide BUN 23 H Creatinine 0.5 L Glucose 129 H POC Glucose 127 H 130 H Calcium 8.0 L Phosphorus Magnesium Direct Bilirubin AST Alkaline Phosphatase C-Reactive Protein Serum Total Protein Total Protein Albumin Prealbumin Npczz-7-Jafvvfepd Gmcva-3-Xkiwdrykb Gamma Globulins PEP Interpretation Triglycerides Urine pH Urine Creatinine Urine Total Protein Digoxin Crossmatch Chest x-ray: report reviewed, image reviewed
[2019-10-28] MEDS: HYDROmorphone 2 MG/1 ML INJ IV PRN (20:25)
[2019-10-28] MEDS: LISINOPRIL 5 MG TAB PO SCH (20:30)
[2019-10-28] MEDS: ENOXAPARIN 40 MG/0.4 ML INJ SUB-Q SCH (22:38)
[2019-10-29] MEDS: HYDROmorphone 2 MG/1 ML INJ IV PRN ×4 (00:25→20:20)
[2019-10-29] MEDS: INSULIN LISPRO 100 UNIT/ML SUB-Q SCH ×4 (00:25→18:30)
[2019-10-29] MEDS: MEROPENEM/NS 1 GRAM/100 ML 1 GRAM/100 ML BAG IV SCH ×3 (02:11→18:27)
[2019-10-29] MEDS: IPRATROPIUM/ALBUTEROL SULFATE 3 ML AMPUL.NEB IH SCH ×4 (02:11→21:12)
--- NOTE | 2019-10-29 02:58 | XRay Report ---
CHEST 1 VIEW INDICATION / CLINICAL INFORMATION: Acute respiratory failure. COMPARISON: 10/26/2019 FINDINGS: SUPPORT DEVICES: PICC line remains on the right. HEART / MEDIASTINUM: No significant abnormality. LUNGS / PLEURA: Bilateral lung consolidation appears essentially unchanged. There may be small pleura l effusions. No pneumothorax. ADDITIONAL FINDINGS: No significant additional findings. IMPRESSION: 1 No substantial change. Signer Name: Miguelito Mo MD Signed: 10/29/2019 2:53 AM Workstation Name: [id number]
[2019-10-29] MEDS: VANCOMYCIN 2,000 MG in SODIUM CHLORIDE 0.9% 500 ML 500 ML IV SCH ×3 (03:27→19:46)
[2019-10-29] MEDS: METOPROLOL TARTRATE 50 MG TAB PO SCH ×3 (05:48→22:51)
[2019-10-29 06:46] LABS: Basophils % (Auto) 0.1 % (0.0-1.8); Eosinophils % (Auto) 0.1 % (0.0-4.3); Hematocrit 29.4 % (35.5-45.6); Hemoglobin 9.7 gm/dl (11.8-15.2); Lymphocytes # (Auto) 1.5 K/mm3 (1.2-5.4); Lymphocytes % (Auto) 13.6 % (13.4-35.0); Mean Corpuscular HGB Conc 33 % (32-34); Mean Corpuscular Volume 88 fl (84-94); Monocytes # (Auto) 1.8 K/mm3 (0.0-0.8); Platelet Count 287 K/mm3 (140-440); Red Blood Count 3.36 M/mm3 (3.65-5.03); Red Cell Distribution Width 16.7 % (13.2-15.2)
[2019-10-29 07:13] LABS: BUN/Creatinine Ratio 46; Blood Urea Nitrogen 23 mg/dL (9-20); Calcium 8.3 mg/dL (8.4-10.2); Hemolysis Index 5
[2019-10-29] MEDS: BUDESONIDE 0.5 MG/2 ML NEBU IH SCH ×2 (07:54→21:12)
[2019-10-29] MEDS: ARFORMOTEROL 15 MCG/2 ML NEBU IH SCH ×2 (07:54→21:12)
--- NOTE | 2019-10-29 08:28 | Progress Note ---
Assessment and Plan - Patient Problems (1) Dehiscence of closure of fascia, superficial or muscular Current Visit: No Status: Acute Qualifiers: Encounter type: initial encounter Qualified Code(s): T81.32XA - Disruption of internal operation (surgical) wound, not elsewhere classified, initial encounter Plan to address problem: Pt stable. s/p ex lap with closure of abdominal wall and wound vac placement (10/05) - POD#21; s/p Re-exploration, washout, transection of colon, Abthera placement - 10/13 - POD#13; s/p abd washout, partial omentectomy, partial colectomy with colostomy - 10/16 POD#11. s/p abd washout, feeding tube placement, AbThera placement - 10/19 - POD#8; Abdominal washout and closure - 10/22 - POD#6 Overall, patient looks stable. Appears less swollen. Sump drains have steady output. Rec: 1) Neuro - Awake and appropriate. Appears very weak. 2) CV - BP improved. Now hypertensive. 3) Resp - Extubated. On HFNC. Need to work on pulmonary toilet. having some shortness of breath. CXR with areas of consolidation 4) GI - Ostomy looks good. Functioning now. Sump drains - output appears to be steady. About 240cc per day each drain is saline flush. I poured out each drain today. The left drain is more mucus. The right drain did have the appearance, but no odor, of thin stool. This is not surprising. It would explain his low grade temps and mild discomfort in the lower abdomen. As his WBC has been normal on two recent checks, I think we have adequate drainage of the area. Today's WBC seems to be hemoconcentration effect as all the other payne numbers are up as well. We will see what happens when the Abx is stopped. To go back in the abdomen is not really an option at this point as everything is most likely frozen in there now. If needed, we would have to look to IR to place additional drains. Wound Vac - not sure what to make of sudden increase in output. Accurate? Fluid color looks good. Should be due for change today by WOCN. Ostomy - functioning now. This is a good sign that the intestines are returning to normal state. Would not expect this if the entire abdomen had uncontrolled drainage from sigmoid stump. Would advance tube feeds to goal. Would also start clear liquid diet. If drinking tolerated well, then will look to clamp G port and check residuals. 5) - BUN/Cr stable. 6) ID - Abx per ID. Enterococcus on cultures. + low grade temp elevations. Last one was normal. May be due to continued leakage from sigmoid stump. 7) Nutrition - TPN. Continue for now until tube feeds tolerated at goal. 8) DVT prophylaxis - SCDs. Lovenox 9) Family -no family at bedside. 10) PT - will need rehab. Please call with questions. Subjective Date of service: 10/29/19 Patient Reports: Positive: pain is less, bowel movement, shortness of breath, other (slightly elevated temps in the 99 range). Negative: nausea, vomiting Objective Vital Signs - 12hr 10/28/19 10/28/19 10/28/19 20:30 21:00 22:00 Temperature Pulse Rate 96 H 92 H 86 Pulse Rate [ Anterior Bilateral Throughout] Pulse Rate [ From Monitor] Respiratory 33 H 33 H Rate Respiratory 38 H Rate [Abdomen] Respiratory Rate [Anterior Bilateral Throughout] Blood Pressure 165/76 165/76 161/79 O2 Sat by Pulse 94 94 Oximetry 10/28/19 10/28/19 10/29/19 22:39 23:00 00:00 Temperature 99.8 F H Pulse Rate 86 83 75 Pulse Rate [ Anterior Bilateral Throughout] Pulse Rate [ 75 From Monitor] Respiratory 35 H 35 H Rate Respiratory Rate [Abdomen] Respiratory Rate [Anterior Bilateral Throughout] Blood Pressure 161/90 161/90 161/78 O2 Sat by Pulse 95 95 Oximetry 10/29/19 10/29/19 10/29/19 01:00 02:00 02:12 Temperature Pulse Rate 78 79 Pulse Rate [ 79 Anterior Bilateral Throughout] Pulse Rate [ From Monitor] Respiratory 32 H 32 H Rate Respiratory Rate [Abdomen] Respiratory 31 H Rate [Anterior Bilateral Throughout] Blood Pressure 164/77 159/73 O2 Sat by Pulse 95 95 Oximetry 10/29/19 10/29/19 10/29/19 03:00 03:40 04:00 Temperature 99.6 F Pulse Rate 77 76 Pulse Rate [ Anterior Bilateral Throughout] Pulse Rate [ 76 From Monitor] Respiratory 32 H 36 H Rate Respiratory Rate [Abdomen] Respiratory Rate [Anterior Bilateral Throughout] Blood Pressure 161/76 179/87 O2 Sat by Pulse 95 95 Oximetry 10/29/19 10/29/19 10/29/19 05:00 05:48 06:00 Temperature Pulse Rate 82 84 83 Pulse Rate [ Anterior Bilateral Throughout] Pulse Rate [ From Monitor] Respiratory 35 H 29 H Rate Respiratory Rate [Abdomen] Respiratory Rate [Anterior Bilateral Throughout] Blood Pressure 159/76 170/82 157/79 O2 Sat by Pulse 95 91 Oximetry 10/29/19 10/29/19 10/29/19 07:00 07:55 08:04 Temperature Pulse Rate 72 Pulse Rate [ 77 Anterior Bilateral Throughout] Pulse Rate [ From Monitor] Respiratory 29 H Rate Respiratory Rate [Abdomen] Respiratory 32 H Rate [Anterior Bilateral Throughout] Blood Pressure 164/81 O2 Sat by Pulse 94 94 Oximetry - General physical appearance no distress, no pain, obese, other (appears weak. voice is weak. ) - Respiratory normal expansion, other (slight increased work of breathing) - Abdomen soft, tender (minimal in lower midline area. ), not distended, not guarding, not rigid, other (Wound vac - intact with serosang drainage. Sump drains working well. guardado drainage R>L.) - Psychiatric oriented to time, oriented to person, other (slightly off on place. Thought he was in [facility]) - Labs 10/29/19 05:30 10/29/19 05:30 Diabetes panel 10/29/19 Range/Units 05:30 Sodium 145 (137-145) mmol/L Potassium 4.0 (3.6-5.0) mmol/L Chloride 105.2 (98-107) mmol/L Carbon Dioxide 24 (22-30) mmol/L BUN 23 H (9-20) mg/dL Creatinine 0.5 L (0.8-1.5) mg/dL Glucose 100 (75-100) mg/dL Calcium 8.3 L (8.4-10.2) mg/dL Calcium panel 10/29/19 Range/Units 05:30 Calcium 8.3 L (8.4-10.2) mg/dL Phosphorus 3.20 (2.5-4.5) mg/dL Pituitary panel 10/29/19 Range/Units 05:30 Sodium 145 (137-145) mmol/L Potassium 4.0 (3.6-5.0) mmol/L Chloride 105.2 (98-107) mmol/L Carbon Dioxide 24 (22-30) mmol/L BUN 23 H (9-20) mg/dL Creatinine 0.5 L (0.8-1.5) mg/dL Glucose 100 (75-100) mg/dL Calcium 8.3 L (8.4-10.2) mg/dL Adrenal panel 10/29/19 Range/Units 05:30 Sodium 145 (137-145) mmol/L Potassium 4.0 (3.6-5.0) mmol/L Chloride 105.2 (98-107) mmol/L Carbon Dioxide 24 (22-30) mmol/L BUN 23 H (9-20) mg/dL Creatinine 0.5 L (0.8-1.5) mg/dL Glucose 100 (75-100) mg/dL Calcium 8.3 L (8.4-10.2) mg/dL - Imaging Chest x-ray: report reviewed, image reviewed
[2019-10-29] MEDS: AMIODARONE 200 MG TAB PO SCH (10:00)
[2019-10-29] MEDS: PANTOPRAZOLE 40 MG INJ IV SCH (10:00)
[2019-10-29] MEDS: LISINOPRIL 5 MG TAB PO SCH (10:00)
[2019-10-29] MEDS: CITALOPRAM 20 MG TAB PO SCH (10:00)
[2019-10-29] MEDS: MICAFUNGIN 100 MG in SODIUM CHLORIDE 0.9% 100 ML IV SCH (10:03)
[2019-10-29] MEDS ORDERED: LISINOPRIL 5 MG TAB PO ONE (11:00)
--- NOTE | 2019-10-29 11:03 | Event Note ---
Date: 10/29/19 Met family at bedside and provided update.
--- NOTE | 2019-10-29 11:19 | Progress Note ---
Assessment and Plan 54 y/o male with anastomic leak 10/29: Discussed today on rounds. Patient had some issues over the weekend with the ICE chips and liquids. Will obtain speech consult/eval prior to restarting clears today. Spoke with nutrition and they will adjust tube feeds with new goal. Once at goal will start to taper off TPN. ordered Incentive madhu to bedside. Will also restart home dose of elaine today. pain control and drainage monitoring. Will continue ICU care. 10/26: Patient stable overall. Not ready for floor. Would be ok with step down if beds are needed. If spikes temp again will order blood cultures x2, urine culture, UA and repeat CXR. Gave an additional 40 of lasix this am. Will give more potassium replacement. Continue trickle feeds for now. Will continue PO meds and restart home dose of citalopram. Wean FiO2 and flow for sats >88%. Mildly hypertensive but this was secondary to agitation. Normalizing now. 10/25: Will extubate today. Will use HFNC if distress or hypoxemia is noted. Not a good candidate for bipap given his recent abdominal issues. Spoke with who is now at bedside and surgery. Will continue to attempt to achieve net negative state daily. Hold on further albumin administration. Hypernatremia is iatrogenic from lasix administration Worse case scenario, will re-intubate with anesthesia. 10/24: Responding well to lasix and protein therapy. Will give 2 more doses of lasix today. Consider one for tonight as well. Last albumin today at 1800. CXR is stable, still with layering bilateral pleural effusions. Will reassess again tomorrow. Reviewed all other [facility] consultant notes. Spoke with sisters at bedside, updated and spoke with surgery. 10/23: Long discussion with surgery and via phone. Anasarca is likely from decreased oncotic pressure and immobility of several days now that abdomen is finally closed. Now fluid is essentially leaking into the interstitium now that the abdomen is shut and there is increased intra-abdominal pressure. Total Protein is 4.5 and albumin is 1.2. This is to be expected given current illness . Will attempt to increase oncotic pressure with 2 units of PRBC's and albumin infusions for the next 24 hours starting at midnight tonight. Will give lasix inbetween transfusions and then again tonight. CXR is consistent with pulmonary edema volume overload. Will continue vent for now and after significant volume removal then will attempt extubation. Discussed with and she understands. Will continue to monitor. Agree with trickle feeds and cards has switched amio over to PO to be given through the G-tube. If tolerates, hopeful to be rid of TPN soon as this is necessary but excessive volume as well. 10/22: Added diprovan as more sedation was needed. Hopefully once closed and no leaks, patient can be extubated. Cards very concerned about length of time for IV amio. Will discuss with surgery the time frame that gut can be used. 10/21: Will hold on weaning until abdomen is closed, especially knowing mental status is good. Will focus on pain control. Replace electrolytes. Appreciate Surgery recs and detail. Follow up any new recs from cards. Or tomorrow for closure CCT 31 minutes. Subjective Date of service: 10/29/19 Principal diagnosis: acute renal failure Interval history: No acute events. Stable on HFNC. Awake and alert. at bedside. Fever curve improving. Reviewed surgery notes. Objective Vital Signs - 12hr 10/29/19 10/29/19 10/29/19 00:00 01:00 02:00 Temperature 99.8 F H Pulse Rate 75 78 79 Pulse Rate [ Anterior Bilateral Throughout] Pulse Rate [ 75 From Monitor] Respiratory 35 H 32 H 32 H Rate Respiratory Rate [Anterior Bilateral Throughout] Blood Pressure 161/78 164/77 159/73 O2 Sat by Pulse 95 95 95 Oximetry 10/29/19 10/29/19 10/29/19 02:12 03:00 03:40 Temperature 99.6 F Pulse Rate 77 Pulse Rate [ 79 Anterior Bilateral Throughout] Pulse Rate [ From Monitor] Respiratory 32 H Rate Respiratory 31 H Rate [Anterior Bilateral Throughout] Blood Pressure 161/76 O2 Sat by Pulse 95 Oximetry 10/29/19 10/29/19 10/29/19 04:00 05:00 05:48 Temperature Pulse Rate 76 82 84 Pulse Rate [ Anterior Bilateral Throughout] Pulse Rate [ 76 From Monitor] Respiratory 36 H 35 H Rate Respiratory Rate [Anterior Bilateral Throughout] Blood Pressure 179/87 159/76 170/82 O2 Sat by Pulse 95 95 Oximetry 10/29/19 10/29/19 10/29/19 06:00 07:00 07:55 Temperature Pulse Rate 83 72 Pulse Rate [ 77 Anterior Bilateral Throughout] Pulse Rate [ From Monitor] Respiratory 29 H 29 H Rate Respiratory 32 H Rate [Anterior Bilateral Throughout] Blood Pressure 157/79 164/81 O2 Sat by Pulse 91 94 Oximetry 10/29/19 10/29/19 10/29/19 08:00 08:04 09:00 Temperature 98.1 F Pulse Rate 78 82 Pulse Rate [ Anterior Bilateral Throughout] Pulse Rate [ 82 From Monitor] Respiratory 32 H 32 H Rate Respiratory Rate [Anterior Bilateral Throughout] Blood Pressure 172/87 175/91 O2 Sat by Pulse 94 94 96 Oximetry 10/29/19 10/29/19 10:00 11:06 Temperature Pulse Rate 80 78 Pulse Rate [ Anterior Bilateral Throughout] Pulse Rate [ From Monitor] Respiratory 31 H Rate Respiratory Rate [Anterior Bilateral Throughout] Blood Pressure 172/83 165/82 O2 Sat by Pulse 94 Oximetry Constitutional: alert, other (critically ill on HFNC) Eyes: non-icteric ENT: oropharynx moist Neck: supple Effort: mildly labored Ascultation: Bilateral: diminished breath sounds (bases) Cardiovascular: regular rate and rhythm (no mrg) Gastrointestinal: tender, other (obese, distended) Integumentary: normal Extremities: no cyanosis, pink and warm, edema (1+ bilateral LE edema) Neurologic: normal mental status, non-focal exam, pupils equal and round Psychiatric: mood appropriate, affect normal CBC and BMP: 10/29/19 05:30 10/29/19 05:30 ABG, PT/INR, D-dimer: ABG POC ABG pH 7.310 (7.35-7.45) L 10/17/19 05:41 ABG pH 7.390 pH Units (7.350-7.450) 10/23/19 04:47 POC ABG pCO2 52.8 (35-45) H 10/17/19 05:41 ABG pCO2 48.4 mm Hg 10/23/19 04:47 POC ABG pO2 70 (80-105) L 10/17/19 05:41 ABG pO2 68.9 mm Hg (80.0-90.0) L 10/23/19 04:47 POC ABG HCO3 26.6 (22-26 mml/L) 10/17/19 05:41 POC ABG Total CO2 28 (23-27mmol/L) 10/17/19 05:41 POC ABG O2 Sat 92 10/17/19 05:41 ABG O2 Saturation 96.6 % (95.0-99.0) 10/23/19 04:47 Abnormal lab findings: Abnormal Labs 10/06/19 10/06/19 10/07/19 05:36 05:36 05:54 WBC 21.8 H 21.5 H RBC 3.55 L Hgb 10.9 L Hct 32.7 L MCHC RDW Plt Count Lymph % (Auto) [place] % (Auto) Lymph # [place] # Seg Neutrophils % Seg Neuts % (Manual) 91.0 H Lymphocytes % (Manual) 2.0 L Seg Neutrophils # Seg Neutrophils # Man 19.8 H Lymphocytes # (Manual) 0.4 L Monocytes # (Manual) 1.1 H POC ABG pH ABG pH POC ABG pCO2 POC ABG pO2 ABG pO2 ABG HCO3 ABG Base Excess ABG Hemoglobin Oxyhemoglobin Sodium 135 L Potassium Chloride 95.9 L Carbon Dioxide BUN Creatinine 0.7 L Glucose POC Glucose Calcium Phosphorus Magnesium Direct Bilirubin AST Alkaline Phosphatase C-Reactive Protein Serum Total Protein Total Protein 5.7 L Albumin 2.5 L Prealbumin Cxmac-1-Vmlzdzpde Nvesz-7-Ifnixhqyi Gamma Globulins PEP Interpretation Triglycerides Urine pH Urine Creatinine Urine Total Protein Digoxin Crossmatch 10/07/19 10/09/19 10/09/19 05:54 10:52 10:52 WBC 16.6 H RBC Hgb Hct MCHC RDW Plt Count 498 H Lymph % (Auto) [place] % (Auto) Lymph # [place] # Seg Neutrophils % Seg Neuts % (Manual) 93.0 H Lymphocytes % (Manual) 5.0 L Seg Neutrophils # Seg Neutrophils # Man 15.4 H Lymphocytes # (Manual) 0.8 L Monocytes # (Manual) POC ABG pH ABG pH POC ABG pCO2 POC ABG pO2 ABG pO2 ABG HCO3 ABG Base Excess ABG Hemoglobin Oxyhemoglobin Sodium Potassium Chloride 97.9 L Carbon Dioxide 20 L D BUN 23 H Creatinine 1.7 H D Glucose 109 H POC Glucose Calcium 8.1 L Phosphorus Magnesium Direct Bilirubin AST Alkaline Phosphatase C-Reactive Protein Serum Total Protein Total Protein Albumin Prealbumin Lobcd-1-Reqiseegk Djhuc-9-Yhowtxjzp Gamma Globulins PEP Interpretation Triglycerides Urine pH Urine Creatinine Urine Total Protein Digoxin Crossmatch 1110/10/19 10/10/19 17:23 05:30 05:30 WBC 14.6 H RBC Hgb 11.1 L Hct 33.5 L MCHC RDW Plt Count 527 H Lymph % (Auto) [place] % (Auto) Lymph # [place] # Seg Neutrophils % Seg Neuts % (Manual) Lymphocytes % (Manual) Seg Neutrophils # Seg Neutrophils # Man Lymphocytes # (Manual) Monocytes # (Manual) POC ABG pH ABG pH POC ABG pCO2 POC ABG pO2 ABG pO2 ABG HCO3 ABG Base Excess ABG Hemoglobin Oxyhemoglobin Sodium 130 L D Potassium 5.1 H Chloride 90.0 L 91.0 L Carbon Dioxide 20 L 20 L BUN 27 H 35 H Creatinine 1.9 H 2.0 H Glucose 104 H POC Glucose Calcium Phosphorus Magnesium Direct Bilirubin AST Alkaline Phosphatase C-Reactive Protein Serum Total Protein Total Protein Albumin Prealbumin [place]auas-3-Jlssctdxr Efchy-4-Ywugofgoh Gamma Globulins PEP Interpretation Triglycerides Urine pH Urine Creatinine Urine Total Protein Digoxin Crossmatch 10/10/19 10/10/19 10/11/19 08:33 08:44 05:41 WBC 13.2 H RBC Hgb 11.3 L Hct 33.8 L MCHC RDW 15.3 H Plt Count 543 H Lymph % (Auto) [place] % (Auto) Lymph # [place] # Seg Neutrophils % Seg Neuts % (Manual) Lymphocytes % (Manual) Seg Neutrophils # Seg Neutrophils # Man Lymphocytes # (Manual) Monocytes # (Manual) POC ABG pH ABG pH POC ABG pCO2 POC ABG pO2 ABG pO2 ABG HCO3 ABG Base Excess ABG Hemoglobin Oxyhemoglobin Sodium Potassium Chloride Carbon Dioxide BUN Creatinine Glucose 113 H POC Glucose 117 H Calcium Phosphorus Magnesium Direct Bilirubin AST Alkaline Phosphatase C-Reactive Protein Serum Total Protein Total Protein Albumin Prealbumin Fxpmp-4-Suqoqfvhb Fspup-1-Auvmbbhqw Gamma Globulins PEP Interpretation Triglycerides Urine pH Urine Creatinine Urine Total Protein Digoxin Crossmatch 10/11/19 10/11/19 10/11/19 05:41 06:23 06:23 WBC RBC Hgb Hct MCHC RDW Plt Count Lymph % (Auto) [place] % (Auto) Lymph # [place] # Seg Neutrophils % Seg Neuts % (Manual) Lymphocytes % (Manual) Seg Neutrophils # Seg Neutrophils # Man Lymphocytes # (Manual) Monocytes # (Manual) POC ABG pH ABG pH POC ABG pCO2 POC ABG pO2 ABG pO2 ABG HCO3 ABG Base Excess ABG Hemoglobin Oxyhemoglobin Sodium 134 L Potassium Chloride 96.3 L Carbon Dioxide BUN 37 H Creatinine Glucose 58 L POC Glucose Calcium Phosphorus 4.90 H Magnesium Direct Bilirubin AST Alkaline Phosphatase C-Reactive Protein Serum Total Protein Total Protein Albumin Prealbumin Kmntp-9-Ltccozfmg Ctjzh-3-Frxdprkki Gamma Globulins PEP Interpretation Triglycerides Urine pH Urine Creatinine 118.2 H 116.8 H Urine Total Protein 105 H 104 H Digoxin Crossmatch 10/11/19 10/12/19 10/12/19 09:00 06:09 06:09 WBC 13.8 H RBC 3.39 L Hgb 10.2 L Hct 30.9 L MCHC RDW 15.5 H Plt Count 459 H Lymph % (Auto) [place] % (Auto) Lymph # [place] # Seg Neutrophils % Seg Neuts % (Manual) Lymphocytes % (Manual) Seg Neutrophils # Seg Neutrophils # Man Lymphocytes # (Manual) Monocytes # (Manual) POC ABG pH ABG pH POC ABG pCO2 POC ABG pO2 ABG pO2 ABG HCO3 ABG Base Excess ABG Hemoglobin Oxyhemoglobin Sodium 131 L Potassium Chloride 96.2 L Carbon Dioxide 21 L BUN 43 H Creatinine Glucose 72 L POC Glucose Calcium Phosphorus Magnesium Direct Bilirubin AST Alkaline Phosphatase C-Reactive Protein Serum Total Protein 5.2 L Total Protein Albumin 1.9 L Prealbumin Ihsso-1-Cazjhznws 0.9 H Lzhkr-7-Tlwtcmxbw 1.0 H Gamma Globulins 0.7 L PEP Interpretation see below H Triglycerides Urine pH Urine Creatinine Urine Total Protein Digoxin Crossmatch 10/12/19 10/12/19 10/12/19 08:20 09:30 09:30 WBC RBC Hgb Hct MCHC RDW Plt Count Lymph % (Auto) [place] % (Auto) Lymph # [place] # Seg Neutrophils % Seg Neuts % (Manual) Lymphocytes % (Manual) Seg Neutrophils # Seg Neutrophils # Man Lymphocytes # (Manual) Monocytes # (Manual) POC ABG pH ABG pH POC ABG pCO2 POC ABG pO2 63 L ABG pO2 ABG HCO3 ABG Base Excess ABG Hemoglobin Oxyhemoglobin Sodium Potassium Chloride Carbon Dioxide BUN Creatinine Glucose POC Glucose Calcium Phosphorus Magnesium 2.50 H Direct Bilirubin 0.3 H AST Alkaline Phosphatase C-Reactive Protein Serum Total Protein Total Protein 5.1 L Albumin 2.2 L Prealbumin Sqere-2-Gdnwxdcte Lrlxq-4-Hbeaykvvo Gamma Globulins PEP Interpretation Triglycerides Urine pH Urine Creatinine Urine Total Protein Digoxin Crossmatch 10/13/19 10/13/19 10/13/19 04:20 04:20 13:20 WBC 15.7 H RBC 3.64 L Hgb 10.9 L Hct 33.1 L MCHC RDW 15.8 H Plt Count 488 H Lymph % (Auto) [place] % (Auto) Lymph # [place] # Seg Neutrophils % Seg Neuts % (Manual) Lymphocytes % (Manual) Seg Neutrophils # Seg Neutrophils # Man Lymphocytes # (Manual) Monocytes # (Manual) POC ABG pH ABG pH POC ABG pCO2 POC ABG pO2 ABG pO2 ABG HCO3 ABG Base Excess ABG Hemoglobin Oxyhemoglobin Sodium Potassium Chloride Carbon Dioxide BUN 28 H Creatinine Glucose POC Glucose Calcium Phosphorus Magnesium Direct Bilirubin AST Alkaline Phosphatase C-Reactive Protein Serum Total Protein Total Protein Albumin Prealbumin Krius-5-Sfdkpxtcb Aujxx-5-Dvcfkbioj Gamma Globulins PEP Interpretation Triglycerides Urine pH Urine Creatinine Urine Total Protein Digoxin Crossmatch See Detail 10/13/19 10/13/19 10/14/19 18:24 20:05 04:47 WBC 24.2 H RBC Hgb 10.9 L Hct 34.2 L MCHC RDW 17.0 H Plt Count 442 H Lymph % (Auto) [place] % (Auto) Lymph # [place] # Seg Neutrophils % Seg Neuts % (Manual) Lymphocytes % (Manual) Seg Neutrophils # Seg Neutrophils # Man Lymphocytes # (Manual) Monocytes # (Manual) POC ABG pH ABG pH 7.180 L* 7.278 L POC ABG pCO2 POC ABG pO2 ABG pO2 130.7 H ABG HCO3 ABG Base Excess -6.5 L -6.5 L ABG Hemoglobin 12.2 L 12.3 L Oxyhemoglobin 92.9 L Sodium Potassium Chloride Carbon Dioxide BUN Creatinine Glucose POC Glucose Calcium Phosphorus Magnesium Direct Bilirubin AST Alkaline Phosphatase C-Reactive Protein Serum Total Protein Total Protein Albumin Prealbumin Cihoq-7-Gvfvofeos Oahwk-2-Xlahcvvwj Gamma Globulins PEP Interpretation Triglycerides Urine pH Urine Creatinine Urine Total Protein Digoxin Crossmatch 10/14/19 10/14/19 10/14/19 04:47 05:40 10:14 WBC RBC Hgb Hct MCHC RDW Plt Count Lymph % (Auto) [place] % (Auto) Lymph # [place] # Seg Neutrophils % Seg Neuts % (Manual) Lymphocytes % (Manual) Seg Neutrophils # Seg Neutrophils # Man Lymphocytes # (Manual) Monocytes # (Manual) POC ABG pH ABG pH POC ABG pCO2 POC ABG pO2 ABG pO2 76.3 L ABG HCO3 19.1 L ABG Base Excess -5.8 L ABG Hemoglobin 10.9 L Oxyhemoglobin 93.4 L Sodium Potassium 5.1 H D Chloride 109.2 H Carbon Dioxide 17 L BUN 38 H Creatinine 1.8 H D Glucose 104 H POC Glucose Calcium 7.4 L Phosphorus 5.60 H Magnesium Direct Bilirubin AST Alkaline Phosphatase C-Reactive Protein Serum Total Protein Total Protein Albumin Prealbumin Tztnf-4-Tikcwlnqy Zzahz-4-Rfamepsxj Gamma Globulins PEP Interpretation Triglycerides Urine pH Urine Creatinine Urine Total Protein Digoxin Crossmatch 10/14/19 10/15/19 10/15/19 23:46 04:32 04:32 WBC 15.5 H RBC 2.89 L Hgb 8.8 L Hct 27.3 L D MCHC RDW 16.6 H Plt Count Lymph % (Auto) [place] % (Auto) Lymph # [place] # Seg Neutrophils % Seg Neuts % (Manual) Lymphocytes % (Manual) Seg Neutrophils # Seg Neutrophils # Man Lymphocytes # (Manual) Monocytes # (Manual) POC ABG pH ABG pH POC ABG pCO2 POC ABG pO2 ABG pO2 ABG HCO3 ABG Base Excess ABG Hemoglobin Oxyhemoglobin Sodium 147 H Potassium Chloride 114.0 H Carbon Dioxide 19 L BUN 42 H Creatinine Glucose 112 H POC Glucose 113 H Calcium 7.3 L Phosphorus Magnesium Direct Bilirubin AST 72 H Alkaline Phosphatase C-Reactive Protein 30.60 H Serum Total Protein Total Protein 4.0 L D Albumin 1.7 L Prealbumin 0.030 L Bzhsb-5-Zuobnasnf Jcecs-0-Ohifshcyy Gamma Globulins PEP Interpretation Triglycerides Urine pH Urine Creatinine Urine Total Protein Digoxin Crossmatch 10/15/19 10/15/19 10/15/19 05:30 12:08 17:23 WBC RBC Hgb Hct MCHC RDW Plt Count Lymph % (Auto) [place] % (Auto) Lymph # [place] # Seg Neutrophils % Seg Neuts % (Manual) Lymphocytes % (Manual) Seg Neutrophils # Seg Neutrophils # Man Lymphocytes # (Manual) Monocytes # (Manual) POC ABG pH ABG pH 7.296 L POC ABG pCO2 POC ABG pO2 ABG pO2 114.7 H ABG HCO3 ABG Base Excess -3.7 L ABG Hemoglobin 8.9 L Oxyhemoglobin Sodium Potassium Chloride Carbon Dioxide BUN Creatinine Glucose POC Glucose 106 H 106 H Calcium Phosphorus Magnesium Direct Bilirubin AST Alkaline Phosphatase C-Reactive Protein Serum Total Protein Total Protein Albumin Prealbumin Xtplq-0-Rhzodrrul Dpkbu-3-Efrthlohe Gamma Globulins PEP Interpretation Triglycerides Urine pH Urine Creatinine Urine Total Protein Digoxin Crossmatch 10/16/19 10/16/19 10/16/19 00:07 04:44 05:24 WBC RBC Hgb Hct MCHC RDW Plt Count Lymph % (Auto) [place] % (Auto) Lymph # [place] # Seg Neutrophils % Seg Neuts % (Manual) Lymphocytes % (Manual) Seg Neutrophils # Seg Neutrophils # Man Lymphocytes # (Manual) Monocytes # (Manual) POC ABG pH ABG pH POC ABG pCO2 POC ABG pO2 ABG pO2 ABG HCO3 ABG Base Excess ABG Hemoglobin Oxyhemoglobin Sodium 150 H Potassium Chloride 115.8 H Carbon Dioxide BUN 35 H Creatinine Glucose 129 H POC Glucose 119 H 129 H Calcium 7.3 L Phosphorus 1.80 L D Magnesium Direct Bilirubin AST Alkaline Phosphatase C-Reactive Protein Serum Total Protein Total Protein Albumin Prealbumin Asvoi-7-Kskmmgtnz Qewim-3-Zfpopbdah Gamma Globulins PEP Interpretation Triglycerides Urine pH Urine Creatinine Urine Total Protein Digoxin Crossmatch 10/16/19 10/16/19 10/16/19 06:53 09:20 11:58 WBC 14.6 H RBC 2.70 L Hgb 8.1 L Hct 25.2 L MCHC RDW 16.7 H Plt Count Lymph % (Auto) [place] % (Auto) Lymph # [place] # Seg Neutrophils % Seg Neuts % (Manual) 79.0 H Lymphocytes % (Manual) 4.0 L Seg Neutrophils # Seg Neutrophils # Man 11.5 H Lymphocytes # (Manual) 0.6 L Monocytes # (Manual) POC ABG pH ABG pH POC ABG pCO2 47.0 H POC ABG pO2 ABG pO2 ABG HCO3 ABG Base Excess ABG Hemoglobin Oxyhemoglobin Sodium Potassium Chloride Carbon Dioxide BUN Creatinine Glucose POC Glucose Calcium Phosphorus Magnesium Direct Bilirubin AST Alkaline Phosphatase C-Reactive Protein Serum Total Protein Total Protein Albumin Prealbumin Eavrx-0-Gvfgmuwrf Zdans-4-Mobqrnhmd Gamma Globulins PEP Interpretation Triglycerides Urine pH Urine Creatinine Urine Total Protein Digoxin Crossmatch See Detail 10/16/19 10/16/19 10/16/19 15:23 17:50 23:58 WBC RBC Hgb Hct MCHC RDW Plt Count Lymph % (Auto) [place] % (Auto) Lymph # [place] # Seg Neutrophils % Seg Neuts % (Manual) Lymphocytes % (Manual) Seg Neutrophils # Seg Neutrophils # Man Lymphocytes # (Manual) Monocytes # (Manual) POC ABG pH ABG pH POC ABG pCO2 POC ABG pO2 ABG pO2 ABG HCO3 ABG Base Excess ABG Hemoglobin Oxyhemoglobin Sodium Potassium Chloride Carbon Dioxide BUN Creatinine Glucose POC Glucose 221 H 201 H 179 H Calcium Phosphorus Magnesium Direct Bilirubin AST Alkaline Phosphatase C-Reactive Protein Serum Total Protein Total Protein Albumin Prealbumin Vnoln-6-Yxzdgaxgu Rmibp-1-Pxrapuhsl Gamma Globulins PEP Interpretation Triglycerides Urine pH Urine Creatinine Urine Total Protein Digoxin Crossmatch 10/17/19 10/17/19 10/17/19 04:08 04:08 05:41 WBC 22.3 H RBC 3.35 L Hgb 10.0 L Hct 31.2 L D MCHC RDW 16.1 H Plt Count Lymph % (Auto) [place] % (Auto) Lymph # [place] # Seg Neutrophils % Seg Neuts % (Manual) Lymphocytes % (Manual) Seg Neutrophils # Seg Neutrophils # Man Lymphocytes # (Manual) Monocytes # (Manual) POC ABG pH 7.310 L ABG pH POC ABG pCO2 52.8 H POC ABG pO2 70 L ABG pO2 ABG HCO3 ABG Base Excess ABG Hemoglobin Oxyhemoglobin Sodium 147 H Potassium Chloride 114.9 H Carbon Dioxide BUN 36 H Creatinine Glucose 165 H POC Glucose Calcium 6.9 L Phosphorus 2.20 L D Magnesium Direct Bilirubin AST Alkaline Phosphatase C-Reactive Protein Serum Total Protein Total Protein Albumin Prealbumin Jsuxa-3-Dosrtdvbn Ddxai-5-Juhljrobg Gamma Globulins PEP Interpretation Triglycerides Urine pH Urine Creatinine Urine Total Protein Digoxin Crossmatch 10/17/19 10/17/19 10/17/19 05:42 11:33 18:17 WBC RBC Hgb Hct MCHC RDW Plt Count Lymph % (Auto) [place] % (Auto) Lymph # [place] # Seg Neutrophils % Seg Neuts % (Manual) Lymphocytes % (Manual) Seg Neutrophils # Seg Neutrophils # Man Lymphocytes # (Manual) Monocytes # (Manual) POC ABG pH ABG pH POC ABG pCO2 POC ABG pO2 ABG pO2 ABG HCO3 ABG Base Excess ABG Hemoglobin Oxyhemoglobin Sodium Potassium Chloride Carbon Dioxide BUN Creatinine Glucose POC Glucose 149 H 154 H 163 H Calcium Phosphorus Magnesium Direct Bilirubin AST Alkaline Phosphatase C-Reactive Protein Serum Total Protein Total Protein Albumin Prealbumin Jzurb-2-Viiovkata Pfarp-1-Dqbnqpeml Gamma Globulins PEP Interpretation Triglycerides Urine pH Urine Creatinine Urine Total Protein Digoxin Crossmatch 10/17/19 10/18/19 10/18/19 23:34 03:29 04:50 WBC RBC Hgb Hct MCHC RDW Plt Count Lymph % (Auto) [place] % (Auto) Lymph # [place] # Seg Neutrophils % Seg Neuts % (Manual) Lymphocytes % (Manual) Seg Neutrophils # Seg Neutrophils # Man Lymphocytes # (Manual) Monocytes # (Manual) POC ABG pH ABG pH POC ABG pCO2 POC ABG pO2 ABG pO2 78.8 L ABG HCO3 ABG Base Excess ABG Hemoglobin 8.8 L Oxyhemoglobin Sodium Potassium Chloride 111.8 H Carbon Dioxide BUN 27 H Creatinine 0.6 L Glucose 140 H POC Glucose 135 H Calcium 7.1 L Phosphorus 1.80 L Magnesium Direct Bilirubin AST Alkaline Phosphatase C-Reactive Protein Serum Total Protein Total Protein Albumin Prealbumin Jcluu-7-Zztkehpru Trtrb-7-Bkpzklvtm Gamma Globulins PEP Interpretation Triglycerides Urine pH Urine Creatinine Urine Total Protein Digoxin Crossmatch 10/18/19 10/18/19 10/18/19 05:45 11:19 18:26 WBC RBC Hgb Hct MCHC RDW Plt Count Lymph % (Auto) [place] % (Auto) Lymph # [place] # Seg Neutrophils % Seg Neuts % (Manual) Lymphocytes % (Manual) Seg Neutrophils # Seg Neutrophils # Man Lymphocytes # (Manual) Monocytes # (Manual) POC ABG pH ABG pH POC ABG pCO2 POC ABG pO2 ABG pO2 ABG HCO3 ABG Base Excess ABG Hemoglobin Oxyhemoglobin Sodium Potassium Chloride Carbon Dioxide BUN Creatinine Glucose POC Glucose 145 H 152 H 125 H Calcium Phosphorus Magnesium Direct Bilirubin AST Alkaline Phosphatase C-Reactive Protein Serum Total Protein Total Protein Albumin Prealbumin Vayaa-8-Gsfgxgoym Bxoud-6-Idhynhktp Gamma Globulins PEP Interpretation Triglycerides Urine pH Urine Creatinine Urine Total Protein Digoxin Crossmatch 10/18/19 10/19/19 10/19/19 23:27 04:21 04:21 WBC RBC Hgb Hct MCHC RDW Plt Count Lymph % (Auto) [place] % (Auto) Lymph # [place] # Seg Neutrophils % Seg Neuts % (Manual) Lymphocytes % (Manual) Seg Neutrophils # Seg Neutrophils # Man Lymphocytes # (Manual) Monocytes # (Manual) POC ABG pH ABG pH POC ABG pCO2 POC ABG pO2 ABG pO2 ABG HCO3 ABG Base Excess ABG Hemoglobin Oxyhemoglobin Sodium Potassium Chloride 108.4 H Carbon Dioxide BUN 22 H Creatinine 0.5 L Glucose 123 H POC Glucose 127 H Calcium 7.4 L Phosphorus 1.80 L Magnesium Direct Bilirubin AST Alkaline Phosphatase C-Reactive Protein Serum Total Protein Total Protein Albumin Prealbumin Xpyab-8-Oflabjpzy Egkzt-9-Ntacrcioj Gamma Globulins PEP Interpretation Triglycerides Urine pH Urine Creatinine Urine Total Protein Digoxin 0.7 L Crossmatch 10/19/19 10/19/19 10/19/19 05:00 05:35 11:26 WBC RBC Hgb Hct MCHC RDW Plt Count Lymph % (Auto) [place] % (Auto) Lymph # [place] # Seg Neutrophils % Seg Neuts % (Manual) Lymphocytes % (Manual) Seg Neutrophils # Seg Neutrophils # Man Lymphocytes # (Manual) Monocytes # (Manual) POC ABG pH ABG pH 7.456 H POC ABG pCO2 POC ABG pO2 ABG pO2 78.8 L ABG HCO3 ABG Base Excess ABG Hemoglobin 5.6 L Oxyhemoglobin Sodium Potassium Chloride Carbon Dioxide BUN Creatinine Glucose POC Glucose 124 H 111 H Calcium Phosphorus Magnesium Direct Bilirubin AST Alkaline Phosphatase C-Reactive Protein Serum Total Protein Total Protein Albumin Prealbumin Izmwm-9-Yvejfnqkp Avcih-7-Jqbfiasll Gamma Globulins PEP Interpretation Triglycerides Urine pH Urine Creatinine Urine Total Protein Digoxin Crossmatch 10/19/19 10/20/19 10/20/19 23:23 04:50 05:17 WBC RBC Hgb Hct MCHC RDW Plt Count Lymph % (Auto) [place] % (Auto) Lymph # [place] # Seg Neutrophils % Seg Neuts % (Manual) Lymphocytes % (Manual) Seg Neutrophils # Seg Neutrophils # Man Lymphocytes # (Manual) Monocytes # (Manual) POC ABG pH ABG pH POC ABG pCO2 POC ABG pO2 ABG pO2 ABG HCO3 ABG Base Excess ABG Hemoglobin Oxyhemoglobin Sodium Potassium Chloride 108.1 H Carbon Dioxide BUN Creatinine 0.4 L Glucose 134 H POC Glucose 129 H 123 H Calcium 7.1 L Phosphorus Magnesium Direct Bilirubin AST Alkaline Phosphatase C-Reactive Protein Serum Total Protein Total Protein Albumin Prealbumin Otfsy-0-Oxwpjacxv Gccjn-2-Yhwxhoytp Gamma Globulins PEP Interpretation Triglycerides Urine pH Urine Creatinine Urine Total Protein Digoxin Crossmatch 10/20/19 10/20/19 10/21/19 11:40 19:06 05:08 WBC RBC Hgb Hct MCHC RDW Plt Count Lymph % (Auto) [place] % (Auto) Lymph # [place] # Seg Neutrophils % Seg Neuts % (Manual) Lymphocytes % (Manual) Seg Neutrophils # Seg Neutrophils # Man Lymphocytes # (Manual) Monocytes # (Manual) POC ABG pH ABG pH POC ABG pCO2 POC ABG pO2 ABG pO2 ABG HCO3 ABG Base Excess ABG Hemoglobin Oxyhemoglobin Sodium Potassium Chloride Carbon Dioxide BUN Creatinine Glucose POC Glucose 139 H 117 H 131 H Calcium Phosphorus Magnesium Direct Bilirubin AST Alkaline Phosphatase C-Reactive Protein Serum Total Protein Total Protein Albumin Prealbumin Vlynl-6-Kahpvhvor Vekrq-5-Emrvpgddm Gamma Globulins PEP Interpretation Triglycerides Urine pH Urine Creatinine Urine Total Protein Digoxin Crossmatch 10/21/19 10/21/19 10/21/19 05:30 12:04 17:31 WBC RBC Hgb Hct MCHC RDW Plt Count Lymph % (Auto) [place] % (Auto) Lymph # [place] # Seg Neutrophils % Seg Neuts % (Manual) Lymphocytes % (Manual) Seg Neutrophils # Seg Neutrophils # Man Lymphocytes # (Manual) Monocytes # (Manual) POC ABG pH ABG pH POC ABG pCO2 POC ABG pO2 ABG pO2 ABG HCO3 ABG Base Excess ABG Hemoglobin Oxyhemoglobin Sodium Potassium Chloride 107.8 H Carbon Dioxide BUN Creatinine 0.5 L Glucose 119 H POC Glucose 119 H 110 H Calcium 7.6 L Phosphorus Magnesium Direct Bilirubin AST Alkaline Phosphatase C-Reactive Protein Serum Total Protein Total Protein Albumin Prealbumin Lgtmq-4-Jgosmqkzq Ucgtf-6-Tgpgbfgbj Gamma Globulins PEP Interpretation Triglycerides Urine pH Urine Creatinine Urine Total Protein Digoxin Crossmatch 10/22/19 10/22/19 10/22/19 05:14 05:37 12:07 WBC RBC Hgb Hct MCHC RDW Plt Count Lymph % (Auto) [place] % (Auto) Lymph # [place] # Seg Neutrophils % Seg Neuts % (Manual) Lymphocytes % (Manual) Seg Neutrophils # Seg Neutrophils # Man Lymphocytes # (Manual) Monocytes # (Manual) POC ABG pH ABG pH POC ABG pCO2 POC ABG pO2 ABG pO2 ABG HCO3 ABG Base Excess ABG Hemoglobin Oxyhemoglobin Sodium Potassium Chloride Carbon Dioxide BUN Creatinine 0.5 L Glucose 116 H POC Glucose 110 H 126 H Calcium 7.7 L Phosphorus Magnesium Direct Bilirubin AST Alkaline Phosphatase C-Reactive Protein Serum Total Protein Total Protein Albumin Prealbumin Vhjhc-9-Ybvgpcqce Sbuxt-6-Hqhcotagk Gamma Globulins PEP Interpretation Triglycerides Urine pH Urine Creatinine Urine Total Protein Digoxin Crossmatch 10/22/19 10/22/19 10/23/19 18:36 23:19 04:39 WBC RBC Hgb Hct MCHC RDW Plt Count Lymph % (Auto) [place] % (Auto) Lymph # [place] # Seg Neutrophils % Seg Neuts % (Manual) Lymphocytes % (Manual) Seg Neutrophils # Seg Neutrophils # Man Lymphocytes # (Manual) Monocytes # (Manual) POC ABG pH ABG pH POC ABG pCO2 POC ABG pO2 ABG pO2 ABG HCO3 ABG Base Excess ABG Hemoglobin Oxyhemoglobin Sodium Potassium Chloride Carbon Dioxide BUN Creatinine Glucose POC Glucose 120 H 127 H 112 H Calcium Phosphorus Magnesium Direct Bilirubin AST Alkaline Phosphatase C-Reactive Protein Serum Total Protein Total Protein Albumin Prealbumin Fcqks-0-Gxsmwszdk Vooaw-4-Dhzhaynmu Gamma Globulins PEP Interpretation Triglycerides Urine pH Urine Creatinine Urine Total Protein Digoxin Crossmatch 10/23/19 10/23/19 10/23/19 04:47 05:15 10:44 WBC 18.3 H RBC 2.33 L Hgb 7.0 L Hct 21.5 L MCHC RDW 16.2 H Plt Count Lymph % (Auto) 4.9 L [place] % (Auto) 8.1 H Lymph # 0.9 L [place] # 1.5 H Seg Neutrophils % 86.7 H Seg Neuts % (Manual) Lymphocytes % (Manual) Seg Neutrophils # 15.9 H Seg Neutrophils # Man Lymphocytes # (Manual) Monocytes # (Manual) POC ABG pH ABG pH POC ABG pCO2 POC ABG pO2 ABG pO2 68.9 L ABG HCO3 28.7 H ABG Base Excess 3.4 H ABG Hemoglobin 6.6 L Oxyhemoglobin 94.1 L Sodium Potassium Chloride Carbon Dioxide BUN Creatinine 0.5 L Glucose 165 H POC Glucose Calcium 7.4 L Phosphorus Magnesium Direct Bilirubin AST Alkaline Phosphatase C-Reactive Protein Serum Total Protein Total Protein Albumin Prealbumin Dbavq-5-Oedwatyxv Aormf-2-Rdjvsnpze Gamma Globulins PEP Interpretation Triglycerides Urine pH Urine Creatinine Urine Total Protein Digoxin Crossmatch 10/23/19 10/23/19 10/23/19 10:44 11:46 11:50 WBC RBC Hgb Hct MCHC RDW Plt Count Lymph % (Auto) [place] % (Auto) Lymph # [place] # Seg Neutrophils % Seg Neuts % (Manual) Lymphocytes % (Manual) Seg Neutrophils # Seg Neutrophils # Man Lymphocytes # (Manual) Monocytes # (Manual) POC ABG pH ABG pH POC ABG pCO2 POC ABG pO2 ABG pO2 ABG HCO3 ABG Base Excess ABG Hemoglobin Oxyhemoglobin Sodium Potassium Chloride Carbon Dioxide BUN Creatinine Glucose POC Glucose 138 H Calcium Phosphorus Magnesium Direct Bilirubin 0.7 H AST Alkaline Phosphatase C-Reactive Protein Serum Total Protein Total Protein 4.5 L Albumin 1.2 L Prealbumin Ievzj-9-Hennnvyjv Fulsv-9-Jaigpyqbl Gamma Globulins PEP Interpretation Triglycerides Urine pH Urine Creatinine Urine Total Protein Digoxin Crossmatch See Detail 10/23/19 10/24/19 10/24/19 17:53 00:07 05:05 WBC RBC Hgb Hct MCHC RDW Plt Count Lymph % (Auto) [place] % (Auto) Lymph # [place] # Seg Neutrophils % Seg Neuts % (Manual) Lymphocytes % (Manual) Seg Neutrophils # Seg Neutrophils # Man Lymphocytes # (Manual) Monocytes # (Manual) POC ABG pH ABG pH POC ABG pCO2 POC ABG pO2 ABG pO2 ABG HCO3 ABG Base Excess ABG Hemoglobin Oxyhemoglobin Sodium Potassium 3.5 L Chloride Carbon Dioxide BUN Creatinine 0.5 L Glucose 116 H POC Glucose 137 H 110 H Calcium 8.0 L Phosphorus Magnesium Direct Bilirubin AST Alkaline Phosphatase C-Reactive Protein Serum Total Protein Total Protein Albumin Prealbumin Gyuuz-6-Hagclypgg Eabyr-8-Zwxtmkdee Gamma Globulins PEP Interpretation Triglycerides Urine pH Urine Creatinine Urine Total Protein Digoxin Crossmatch 10/24/19 10/24/19 10/24/19 05:05 11:56 13:00 WBC 13.0 H RBC 2.73 L Hgb 8.0 L Hct 24.2 L MCHC RDW 17.9 H Plt Count Lymph % (Auto) 7.0 L [place] % (Auto) 9.5 H Lymph # 0.9 L [place] # 1.2 H Seg Neutrophils % 82.7 H Seg Neuts % (Manual) Lymphocytes % (Manual) Seg Neutrophils # 10.7 H Seg Neutrophils # Man Lymphocytes # (Manual) Monocytes # (Manual) POC ABG pH ABG pH POC ABG pCO2 POC ABG pO2 ABG pO2 ABG HCO3 ABG Base Excess ABG Hemoglobin Oxyhemoglobin Sodium Potassium Chloride Carbon Dioxide BUN Creatinine Glucose POC Glucose 159 H Calcium Phosphorus Magnesium Direct Bilirubin AST Alkaline Phosphatase C-Reactive Protein Serum Total Protein Total Protein Albumin Prealbumin Wtwop-3-Mypnfwoyi Mqriz-6-Izrvllqbj Gamma Globulins PEP Interpretation Triglycerides 216 H Urine pH Urine Creatinine Urine Total Protein Digoxin Crossmatch 10/24/19 10/24/19 10/25/19 17:42 23:45 04:19 WBC RBC Hgb Hct MCHC RDW Plt Count Lymph % (Auto) [place] % (Auto) Lymph # [place] # Seg Neutrophils % Seg Neuts % (Manual) Lymphocytes % (Manual) Seg Neutrophils # Seg Neutrophils # Man Lymphocytes # (Manual) Monocytes # (Manual) POC ABG pH ABG pH POC ABG pCO2 POC ABG pO2 ABG pO2 ABG HCO3 ABG Base Excess ABG Hemoglobin Oxyhemoglobin Sodium 147 H Potassium Chloride Carbon Dioxide 33 H BUN Creatinine 0.5 L Glucose 111 H POC Glucose 120 H 116 H Calcium Phosphorus Magnesium Direct Bilirubin AST Alkaline Phosphatase C-Reactive Protein Serum Total Protein Total Protein 5.7 L D Albumin 2.5 L Prealbumin Ayosy-7-Lfssziddc Qoczr-3-Xwyfseeax Gamma Globulins PEP Interpretation Triglycerides 230 H Urine pH Urine Creatinine Urine Total Protein Digoxin Crossmatch 10/25/19 10/25/19 10/25/19 04:19 05:31 12:20 WBC RBC 2.69 L Hgb 8.1 L Hct 23.9 L MCHC RDW 17.3 H Plt Count Lymph % (Auto) [place] % (Auto) Lymph # [place] # Seg Neutrophils % Seg Neuts % (Manual) Lymphocytes % (Manual) Seg Neutrophils # Seg Neutrophils # Man Lymphocytes # (Manual) Monocytes # (Manual) POC ABG pH ABG pH POC ABG pCO2 POC ABG pO2 ABG pO2 ABG HCO3 ABG Base Excess ABG Hemoglobin Oxyhemoglobin Sodium Potassium Chloride Carbon Dioxide BUN Creatinine Glucose POC Glucose 126 H 114 H Calcium Phosphorus Magnesium Direct Bilirubin AST Alkaline Phosphatase C-Reactive Protein Serum Total Protein Total Protein Albumin Prealbumin Sezbk-7-Pgjewsrjs Qyiqf-1-Ivmheifvi Gamma Globulins PEP Interpretation Triglycerides Urine pH Urine Creatinine Urine Total Protein Digoxin Crossmatch 10/25/19 10/25/19 10/26/19 18:30 23:09 06:15 WBC RBC Hgb Hct MCHC RDW Plt Count Lymph % (Auto) [place] % (Auto) Lymph # [place] # Seg Neutrophils % Seg Neuts % (Manual) Lymphocytes % (Manual) Seg Neutrophils # Seg Neutrophils # Man Lymphocytes # (Manual) Monocytes # (Manual) POC ABG pH ABG pH POC ABG pCO2 POC ABG pO2 ABG pO2 ABG HCO3 ABG Base Excess ABG Hemoglobin Oxyhemoglobin Sodium Potassium 3.5 L Chloride Carbon Dioxide BUN Creatinine 0.5 L Glucose 112 H POC Glucose 121 H 107 H Calcium 8.3 L Phosphorus Magnesium Direct Bilirubin AST Alkaline Phosphatase 148 H C-Reactive Protein Serum Total Protein Total Protein 5.9 L Albumin 2.4 L Prealbumin Kmbnd-5-Ngwcfeurq Nkcev-8-Dalspyanz Gamma Globulins PEP Interpretation Triglycerides Urine pH Urine Creatinine Urine Total Protein Digoxin Crossmatch 10/26/19 10/26/19 10/26/19 06:15 12:21 17:35 WBC RBC Hgb Hct MCHC RDW Plt Count Lymph % (Auto) [place] % (Auto) Lymph # [place] # Seg Neutrophils % Seg Neuts % (Manual) Lymphocytes % (Manual) Seg Neutrophils # Seg Neutrophils # Man Lymphocytes # (Manual) Monocytes # (Manual) POC ABG pH ABG pH POC ABG pCO2 POC ABG pO2 ABG pO2 ABG HCO3 ABG Base Excess ABG Hemoglobin Oxyhemoglobin Sodium Potassium Chloride Carbon Dioxide BUN Creatinine Glucose POC Glucose 134 H 141 H Calcium Phosphorus Magnesium Direct Bilirubin AST Alkaline Phosphatase C-Reactive Protein Serum Total Protein Total Protein Albumin Prealbumin Geucm-3-Zgnikroan Szeif-6-Zsoijagyf Gamma Globulins PEP Interpretation Triglycerides 185 H Urine pH Urine Creatinine Urine Total Protein Digoxin Crossmatch 10/26/19 10/27/19 10/27/19 Unknown 04:30 11:33 WBC RBC Hgb Hct MCHC RDW Plt Count Lymph % (Auto) [place] % (Auto) Lymph # [place] # Seg Neutrophils % Seg Neuts % (Manual) Lymphocytes % (Manual) Seg Neutrophils # Seg Neutrophils # Man Lymphocytes # (Manual) Monocytes # (Manual) POC ABG pH ABG pH POC ABG pCO2 POC ABG pO2 ABG pO2 ABG HCO3 ABG Base Excess ABG Hemoglobin Oxyhemoglobin Sodium Potassium 3.2 L Chloride Carbon Dioxide BUN 23 H Creatinine 0.6 L Glucose 130 H POC Glucose 131 H Calcium 7.9 L Phosphorus Magnesium Direct Bilirubin AST Alkaline Phosphatase C-Reactive Protein Serum Total Protein Total Protein Albumin Prealbumin Lkbbj-3-Fxugvtmge Gvete-4-Xkivtjpnc Gamma Globulins PEP Interpretation Triglycerides Urine pH 9.0 H Urine Creatinine Urine Total Protein Digoxin Crossmatch 10/27/19 10/28/19 10/28/19 17:45 05:25 05:49 WBC RBC 2.85 L Hgb 8.3 L Hct 26.8 L MCHC 31 L RDW 17.4 H Plt Count Lymph % (Auto) 8.9 L [place] % (Auto) 14.3 H Lymph # 0.8 L [place] # 1.3 H Seg Neutrophils % 76.5 H Seg Neuts % (Manual) Lymphocytes % (Manual) Seg Neutrophils # Seg Neutrophils # Man Lymphocytes # (Manual) Monocytes # (Manual) POC ABG pH ABG pH POC ABG pCO2 POC ABG pO2 ABG pO2 ABG HCO3 ABG Base Excess ABG Hemoglobin Oxyhemoglobin Sodium Potassium Chloride Carbon Dioxide BUN Creatinine Glucose POC Glucose 121 H 120 H Calcium Phosphorus Magnesium Direct Bilirubin AST Alkaline Phosphatase C-Reactive Protein Serum Total Protein Total Protein Albumin Prealbumin Zdrqk-4-Pgkxyqnju Qfqlu-8-Whrubddbf Gamma Globulins PEP Interpretation Triglycerides Urine pH Urine Creatinine Urine Total Protein Digoxin Crossmatch 10/28/19 10/28/19 10/28/19 07:19 12:07 18:21 WBC RBC Hgb Hct MCHC RDW Plt Count Lymph % (Auto) [place] % (Auto) Lymph # [place] # Seg Neutrophils % Seg Neuts % (Manual) Lymphocytes % (Manual) Seg Neutrophils # Seg Neutrophils # Man Lymphocytes # (Manual) Monocytes # (Manual) POC ABG pH ABG pH POC ABG pCO2 POC ABG pO2 ABG pO2 ABG HCO3 ABG Base Excess ABG Hemoglobin Oxyhemoglobin Sodium Potassium Chloride Carbon Dioxide BUN 23 H Creatinine 0.5 L Glucose 129 H POC Glucose 127 H 130 H Calcium 8.0 L Phosphorus Magnesium Direct Bilirubin AST Alkaline Phosphatase C-Reactive Protein Serum Total Protein Total Protein Albumin Prealbumin Vvbjq-9-Ccmxgxstd Bnkbd-9-Smtwwxrla Gamma Globulins PEP Interpretation Triglycerides Urine pH Urine Creatinine Urine Total Protein Digoxin Crossmatch 10/28/19 10/29/19 10/29/19 23:30 05:30 05:30 WBC 11.2 H RBC 3.36 L Hgb 9.7 L Hct 29.4 L MCHC RDW 16.7 H Plt Count Lymph % (Auto) [place] % (Auto) 16.0 H Lymph # [place] # 1.8 H Seg Neutrophils % 70.2 H Seg Neuts % (Manual) Lymphocytes % (Manual) Seg Neutrophils # 7.9 H Seg Neutrophils # Man Lymphocytes # (Manual) Monocytes # (Manual) POC ABG pH ABG pH POC ABG pCO2 POC ABG pO2 ABG pO2 ABG HCO3 ABG Base Excess ABG Hemoglobin Oxyhemoglobin Sodium Potassium Chloride Carbon Dioxide BUN 23 H Creatinine 0.5 L Glucose POC Glucose 130 H Calcium 8.3 L Phosphorus Magnesium Direct Bilirubin AST Alkaline Phosphatase C-Reactive Protein Serum Total Protein Total Protein Albumin Prealbumin Axybs-7-Ngjbgtnco Hkyxa-7-Dtcywqgkh Gamma Globulins PEP Interpretation Triglycerides Urine pH Urine Creatinine Urine Total Protein Digoxin Crossmatch 10/29/19 05:52 WBC RBC Hgb Hct MCHC RDW Plt Count Lymph % (Auto) [place] % (Auto) Lymph # [place] # Seg Neutrophils % Seg Neuts % (Manual) Lymphocytes % (Manual) Seg Neutrophils # Seg Neutrophils # Man Lymphocytes # (Manual) Monocytes # (Manual) POC ABG pH ABG pH POC ABG pCO2 POC ABG pO2 ABG pO2 ABG HCO3 ABG Base Excess ABG Hemoglobin Oxyhemoglobin Sodium Potassium Chloride Carbon Dioxide BUN Creatinine Glucose POC Glucose 111 H Calcium Phosphorus Magnesium Direct Bilirubin AST Alkaline Phosphatase C-Reactive Protein Serum Total Protein Total Protein Albumin Prealbumin Lkejv-1-Jgulfvgui Rdpfh-4-Zvolgpxjs Gamma Globulins PEP Interpretation Triglycerides Urine pH Urine Creatinine Urine Total Protein Digoxin Crossmatch
[2019-10-29] MEDS: hydrALAZINE 20 MG/1 ML INJ IV PRN ×2 (11:59→19:46)
--- NOTE | 2019-10-29 12:14 | Progress Note ---
Assessment and Plan Atrial fibrillation/flutter, spontaneously reverted to sinus rhythm treated with adenosine x1 on 10/15 on amiodarone and metoprolol for suppression Sepsis Severe abdominal pain s/p exploratory laparotomy, abdominal washout, closure of abdominal fascia with wound vac placement on 10/05 s/p abdominal washout with partial colectomy and left colostomy on 10/16 s/p abdominal washout and closure on 10/22 Recent colon resection for bowel perforation following a colonoscopy Atypical chest pain troponins are normal Hx of [place]/CAD [facility] 12/2017: PCI of the circumflex and second vessel POBA of the distal LAD occlusion. Left ventricle fraction 45-50%. Tobacco abuse COPD Hypertension Hyperlipidemia Continue medical management for atrial fibrillation suppression. Subjective Date of service: 10/29/19 Principal diagnosis: acute renal failure Interval history: Patient is alert, no distress noted. Stable sinus rhythm on telemetry. Objective Vital Signs Temp Pulse Pulse Pulse Resp Resp Resp 10/29/19 11:59 84 10/29/19 11:06 78 10/29/19 11:00 77 25 H 10/29/19 10:00 80 31 H 10/29/19 09:00 82 32 H 10/29/19 08:04 10/29/19 08:00 98.1 F 78 82 32 H 10/29/19 07:55 77 32 H 10/29/19 07:00 72 29 H 10/29/19 06:00 83 29 H 10/29/19 05:48 84 10/29/19 05:00 82 35 H 10/29/19 04:00 76 76 36 H 10/29/19 03:40 99.6 F 10/29/19 03:00 77 32 H 10/29/19 02:12 79 31 H 10/29/19 02:00 79 32 H 10/29/19 01:00 78 32 H 10/29/19 00:00 99.8 F H 75 75 35 H 10/28/19 23:00 83 35 H 10/28/19 22:39 86 10/28/19 22:00 86 33 H 38 H 10/28/19 21:00 92 H 33 H 10/28/19 20:30 96 H 10/28/19 20:25 40 H 10/28/19 20:00 99.2 F 93 H 93 H 39 H 10/28/19 19:51 89 10/28/19 19:39 10/28/19 19:36 90 36 H 10/28/19 19:02 89 40 H 10/28/19 19:00 90 39 H 10/28/19 18:56 88 36 H 10/28/19 18:00 85 40 H 10/28/19 17:07 83 10/28/19 17:00 82 41 H 10/28/19 16:00 77 38 H 10/28/19 15:49 99.8 F H 10/28/19 15:17 82 10/28/19 15:00 82 38 H 10/28/19 14:24 82 10/28/19 14:00 83 37 H 10/28/19 13:17 81 28 H 10/28/19 13:00 82 36 H BP Pulse Ox 10/29/19 11:59 194/95 10/29/19 11:06 165/82 10/29/19 11:00 165/82 94 10/29/19 10:00 172/83 94 10/29/19 09:00 175/91 96 10/29/19 08:04 94 10/29/19 08:00 172/87 94 10/29/19 07:55 10/29/19 07:00 164/81 94 10/29/19 06:00 157/79 91 10/29/19 05:48 170/82 10/29/19 05:00 159/76 95 10/29/19 04:00 179/87 95 10/29/19 03:40 10/29/19 03:00 161/76 95 10/29/19 02:12 10/29/19 02:00 159/73 95 10/29/19 01:00 164/77 95 10/29/19 00:00 161/78 95 10/28/19 23:00 161/90 95 10/28/19 22:39 161/90 10/28/19 22:00 161/79 94 10/28/19 21:00 165/76 94 10/28/19 20:30 165/76 10/28/19 20:25 10/28/19 20:00 189/90 94 10/28/19 19:51 189/90 10/28/19 19:39 93 10/28/19 19:36 10/28/19 19:02 184/90 93 10/28/19 19:00 185/90 93 10/28/19 18:56 185/90 92 10/28/19 18:00 182/88 92 10/28/19 17:07 188/83 10/28/19 17:00 182/99 92 10/28/19 16:00 176/91 94 10/28/19 15:49 10/28/19 15:17 175/80 10/28/19 15:00 180/83 91 10/28/19 14:24 183/89 10/28/19 14:00 183/89 94 10/28/19 13:17 10/28/19 13:00 184/94 93 - Physical Examination General: No Apparent Distress HEENT: Positive: PERRL Neck: Positive: trachea midline Cardiac: Positive: Reg Rate and Rhythm Lungs: Positive: Decreased Breath Sounds Neuro: Positive: Weakness Abdomen: Positive: Other (abdominal wound vac is in place) - Labs and Meds CBC 10/29/19 Range/Units 05:30 WBC 11.2 H (4.5-11.0) K/mm3 RBC 3.36 L (3.65-5.03) M/mm3 Hgb 9.7 L (11.8-15.2) gm/dl Hct 29.4 L (35.5-45.6) % Plt Count 287 (140-440) K/mm3 Lymph # 1.5 (1.2-5.4) K/mm3 [place] # 1.8 H (0.0-0.8) K/mm3 Eos # 0.0 (0.0-0.4) K/mm3 Baso # 0.0 (0.0-0.1) K/mm3 Comprehensive Metabolic Panel 10/29/19 Range/Units 05:30 Sodium 145 (137-145) mmol/L Potassium 4.0 (3.6-5.0) mmol/L Chloride 105.2 (98-107) mmol/L Carbon Dioxide 24 (22-30) mmol/L BUN 23 H (9-20) mg/dL Creatinine 0.5 L (0.8-1.5) mg/dL Glucose 100 (75-100) mg/dL Calcium 8.3 L (8.4-10.2) mg/dL
--- NOTE | 2019-10-29 13:43 | Event Note ---
Date: 10/29/19 Called to bedside for right sump drain begin found out. It must have gotten pulled out. Examined with at bedside. Discussed with Dr. Negro. Plan at this point is to see how he looks tomorrow. If he is stable, then would like to wait at least 1-2 days before we rescan him for any retained fluid collection. If there is a significant pocket of fluid, then will ask IR to place drain as it would risky to re-enter abdomen at this point. The adhesions/inflammation would be significant and put him at risk for small bowel injury/fistula formation. As a precaution, I reinforced the sutures one the left drain. Hopefully, this will be able to olive picker any extra fluid that accumulates now.
--- NOTE | 2019-10-29 14:24 | Progress Note ---
Assessment and Plan Cultures 10/10/2019 surgical culture: No growth at 72 hours 10/13/2019 tracheal aspirate culture: No growth 10/13/2019 peritoneal fluid: Enterococcus species (S to Penicillin, Vancomycin) 10/15/2019 blood culture: no growth 10/26/2019 urine culture: no growth thus far 10/26/2019 blood culture: no growth at 24 hours Assessment: 54 yo M PMhx CAD, COPD, recent complicated course of bowel perforation after a colonoscopy admitted with surgical site dehiscence of the fascia. Now with: # Acute sepsis - present with leukocytosis and tachycardia. Most likely secondary to fluid collection/abscess in the abdomen and anastomotic leak. # New fevers: new fevers on 10/25 and 10/26. Ongoing work up and empiric abx. Has indwelling PICC, [place] was removed 10/26. UA unremarkable for infection. # Intra-abdominal infection from anastomotic leak - s/p ex lap with closure of abdominal wall and wound vac placement (10/05/2019); s/p Re-exploration, washout, transection of colon, Abthera placement - 10/13/2019. s/p re- exploration and colostomy creation on 10/16/2019, intra-operatively was found to have "Small amount of continued leak from the old anastomotic site. Some contamination still present. Bowel was all viable". Back on OR on 10/19/2019, findings "small leak from stump staple line". OR again on 10/22/2019 for: Abdominal washout. Closure of abdominal fascia. Wound vac placement. Findings, "contamination from the sigmoid stump closure site." # COPD, acute respiratory failure: s/p extubation. On high flow O2. # Penicillin allergy - likely not a true allergy, reviewed EMR for previous exposure to PCNs, patient received several days of Zosyn in 2018 without issue. Recs: - given recent prolonged exposure to abx and TPN, at risk of MDR infections, candidemia, continue empiric Meropenem, Vancomycin and Micafungin - f/u blood culture, fungal blood culture. UA unremarkable. [place] was removed 10/26/2019. - stop vancomycin if blood cultures are negative at 48 hours - consider stopping micafungin if fungal blood cultures are negative at 5 days - if no clear source is identified, may need to consider CT chest, abdomen and pelvis with contrast [facility] ([facility]) M: [phone] O: [phone] F: [phone] Subjective Principal diagnosis: acute renal failure Objective - Exam Narrative Exam: Constitutional: awake, alert, no distress Head, Ears, Nose: Normocephalic, atraumatic. External ears, nose normal Eyes: Conjunctivae/corneas clear. No icterus. No ptosis. Neck: supple, no meningeal signs Oral: no thrush Cardiovascular: S1, S2 normal. Respiratory: rhonchi bilaterally GI: Midline abdominal VAC. bowel sounds +, Colostomy + drains + Musculoskeletal: anasarca, pedal edema + but improving Skin: No rash or abscess Hem/Lymphatic: No palpable cervical or supraclavicular nodes. No lymphangitis Psych: no agitation Neurological: awake, alert - Constitutional Vitals: Vital Signs Temp Pulse Resp BP Pulse Ox 99.4 F 94 H 32 H 194/95 94 10/29/19 12:00 10/29/19 13:46 10/29/19 13:46 10/29/19 11:59 10/29/19 11:00 Temperature -Last 24 Hours Temperature 99.4 F Temperature 98.1 F Temperature 99.6 F Temperature 99.8 F Temperature 99.8 F Temperature 99.2 F Temperature 99.8 F - Labs CBC & Chem 7: 10/29/19 05:30 10/29/19 05:30 Labs: Abnormal lab results 10/28/19 10/28/19 10/29/19 Range/Units 18:21 23:30 05:30 WBC (4.5-11.0) K/mm3 RBC (3.65-5.03) M/mm3 Hgb (11.8-15.2) gm/dl Hct (35.5-45.6) % RDW (13.2-15.2) % [place] % (Auto) (0.0-7.3) % [place] # (0.0-0.8) K/mm3 Seg Neutrophils % (40.0-70.0) % Seg Neutrophils # (1.8-7.7) K/mm3 BUN 23 H (9-20) mg/dL Creatinine 0.5 L (0.8-1.5) mg/dL POC Glucose 130 H 130 H (70-105) Calcium 8.3 L (8.4-10.2) mg/dL 10/29/19 10/29/19 10/29/19 Range/Units 05:30 05:52 13:10 WBC 11.2 H (4.5-11.0) K/mm3 RBC 3.36 L (3.65-5.03) M/mm3 Hgb 9.7 L (11.8-15.2) gm/dl Hct 29.4 L (35.5-45.6) % RDW 16.7 H (13.2-15.2) % [place] % (Auto) 16.0 H (0.0-7.3) % [place] # 1.8 H (0.0-0.8) K/mm3 Seg Neutrophils % 70.2 H (40.0-70.0) % Seg Neutrophils # 7.9 H (1.8-7.7) K/mm3 BUN (9-20) mg/dL Creatinine (0.8-1.5) mg/dL POC Glucose 111 H 140 H (70-105) Calcium (8.4-10.2) mg/dL
[2019-10-29] MEDS ORDERED: TOTAL PARENTERAL NUTRITION 1,800 ML IV SCH (20:00)
[2019-10-30] MEDS: INSULIN LISPRO 100 UNIT/ML SUB-Q SCH ×4 (01:39→18:03)
[2019-10-30] MEDS: IPRATROPIUM/ALBUTEROL SULFATE 3 ML AMPUL.NEB IH SCH ×4 (01:41→20:55)
[2019-10-30] MEDS: hydrALAZINE 20 MG/1 ML INJ IV PRN (03:06)
[2019-10-30] MEDS: MEROPENEM/NS 1 GRAM/100 ML 1 GRAM/100 ML BAG IV SCH ×3 (03:06→17:47)
[2019-10-30] MEDS: VANCOMYCIN 2,000 MG in SODIUM CHLORIDE 0.9% 500 ML 500 ML IV SCH ×3 (04:13→21:34)
--- NOTE | 2019-10-30 06:51 | Progress Note ---
Assessment and Plan Sepsis, recurrent. Patient with new fevers that have been persistent. ID restarted antibiotics. Etiology likely secondary to fluid collection/abscess in the abdomen and anastomotic leak. Follow-up blood culture, fungal blood culture, UA, urine culture, CXR ordered. Whitfield was removed and urinalysis sent. Given recent prolonged exposure to abx and TPN, at risk of MDR infections, ID started empiric Meropenem and Micafungin ID reccomendations Given recent prolonged exposure to abx and TPN, at risk of MDR infections, candidemia, continue empiric Meropenem, Vancomycin and Micafungin - f/u blood culture, fungal blood culture. UA unremarkable. Whitfield was removed 10/26/2019. - stop vancomycin if blood cultures are negative at 48 hours - consider stopping micafungin if fungal blood cultures are negative at 5 days - if no clear source is identified, may need to consider CT chest, abdomen and pelvis with contrast Dehiscence of closure of fascia * Went to OR for ex lap with closure of abdominal wall and wound vac placement (10/05) * Continued to decline with possible Air vs fluid, 10/10/19 IR went in and placed two drains, Noted to have possible fecal material * Returned to the OR 10/13/19 due to concern for intra-abdominal infection and was found to have with heavy contamination of abdomen patent had disruption of bowel anastomosis, abdominal washout, abthera placement and colon stapled transection and left bowel enterotomy from anastomosis completely open * Returned to OR on 10/16/19 for abdominal washout, Partial Omentectomy, Partial Colectomy, Colostomy Creation and AbThera Placement * Abdominal washout and closure - 10/22 * cont wound care Acute Respiratory failure with hypoxia -Extubated 10/25/19 -Currently on 2 l NC -Ad Writer following Left lower lobe pneumonia -Continue IV antibiotic -CTA chest showed left lower lobe consolidation with pleural effusion GUILLERMO on CRF -probably ATN due to sepsis -Improving, will monitor -SPEP and UPEP pending -No hydronephrosis on CT -Whitfield in place, monitor I/O's Severe Metabolic acidosis -Improved Acute Toxic Metabolic Encephalopathy/Delirium Tremens -Started on CIWA protocol due to hx of ETOH abuse, 6packs a day -Head CT scan negative for acute findings Acute blood loss anemia -H/H stable -Continue to monitor H&H and transfuse for hb<7 SVT, Atrial fib/flutter with RVR -treated with adenosine x1 -off amiodarone and cardizem drip. On oral amiodarone and IV Lopressor. -HR currently controlled -Cardiology following Hypotension -Off esmolol drip -s/p IV fluid boluses, BP stable Hypophosphatemia -will monitor level Hx of Hypertension -Stable Hyperlipidemia -stable Atypical chest pain -probably secondary to pneumonitis -troponin levels neg Hx of MS/CAD -s/p PCI of the circumflex and second vessel POBA of the distal LAD occlusion. Left ventricle fraction of 45-50%. Morbid obesity with BMI of 45.4 -Lifestyle modification recommended COPD -Stable -cont neb tx Moderate Protein calorie malnutrition secondary to surgery -On TPN -Nutrition following Tobacco abuse -Cessation recommended Morbid obesity with BMI of 45.4 -Lifestyle modification recommended DVT and GI ppx: Lovenox/PPI Disp: Very poor prognosis. d/c per clinical course The high probability of a clinically significant, sudden or life threatening deterioration of the [respiratory] system(s) required my full and direct attention, intervention and personal management. The aggregate critical care time was [31] minutes. This time is in addition to time spent performing reported procedures but includes the following: [x] Data Review and interpretation [x] Patient assessment and monitoring of vital signs [x] Documentation [x] Medication orders and management Subjective Date of service: 10/29/19 Principal diagnosis: acute renal failure Interval history: 54 yo male with hx of CAD, MS, emphysema, COPD who presented with prolonged complicated course as a result of a bowel perforation. On admission, it was reported that a portion of his intestines protruded through his wound after severe cough. He has had multiple surgeries since admission. Pt stable. s/p ex lap with closure of abdominal wall and wound vac placement (10/05) - POD#17; s/p Re-exploration, washout, transection of colon, Abthera placement - 10/13 - POD#9; s/p abd washout, partial omentectomy, partial colectomy with colostomy - 10/16 POD#7. s/p abd washout, feeding tube placement, AbThera placement - 10/19 - POD#4; Abdominal washout and closure - 10/22 - POD#7 Objective - Constitutional Vitals: Vital Signs - 12hr 10/29/19 10/29/19 10/29/19 19:00 19:35 19:46 Temperature 98.5 F Pulse Rate 87 90 Pulse Rate [ Anterior Bilateral Throughout] Pulse Rate [ From Monitor] Respiratory 33 H Rate Respiratory Rate [Anterior Bilateral Throughout] Blood Pressure 179/81 183/84 O2 Sat by Pulse 94 Oximetry 10/29/19 10/29/19 10/29/19 20:00 20:20 21:00 Temperature Pulse Rate 90 87 Pulse Rate [ 90 Anterior Bilateral Throughout] Pulse Rate [ 90 From Monitor] Respiratory 35 H 36 H 28 H Rate Respiratory 28 H Rate [Anterior Bilateral Throughout] Blood Pressure 197/84 157/63 O2 Sat by Pulse 93 93 Oximetry 10/29/19 10/29/19 10/29/19 21:15 22:00 22:30 Temperature Pulse Rate 85 Pulse Rate [ Anterior Bilateral Throughout] Pulse Rate [ 90 From Monitor] Respiratory 20 35 H Rate Respiratory Rate [Anterior Bilateral Throughout] Blood Pressure 141/63 O2 Sat by Pulse 94 96 80 L Oximetry 10/29/19 10/29/19 10/29/19 22:51 23:00 23:36 Temperature 98.3 F Pulse Rate 87 98 H Pulse Rate [ Anterior Bilateral Throughout] Pulse Rate [ From Monitor] Respiratory 29 H Rate Respiratory Rate [Anterior Bilateral Throughout] Blood Pressure 172/82 185/80 O2 Sat by Pulse 80 L Oximetry 10/30/19 10/30/19 10/30/19 00:00 01:00 01:30 Temperature Pulse Rate 84 81 Pulse Rate [ Anterior Bilateral Throughout] Pulse Rate [ 84 From Monitor] Respiratory 28 H 24 Rate Respiratory Rate [Anterior Bilateral Throughout] Blood Pressure 144/67 173/79 O2 Sat by Pulse 99 100 99 Oximetry 10/30/19 10/30/19 10/30/19 01:43 02:00 03:06 Temperature Pulse Rate 82 83 Pulse Rate [ 81 Anterior Bilateral Throughout] Pulse Rate [ From Monitor] Respiratory 23 Rate Respiratory 19 Rate [Anterior Bilateral Throughout] Blood Pressure 177/77 174/72 O2 Sat by Pulse 100 Oximetry 10/30/19 03:33 Temperature 99 F Pulse Rate Pulse Rate [ Anterior Bilateral Throughout] Pulse Rate [ From Monitor] Respiratory Rate Respiratory Rate [Anterior Bilateral Throughout] Blood Pressure O2 Sat by Pulse Oximetry General appearance: Present: no acute distress, well-nourished - EENT Eyes: PERRL, EOM intact ENT: hearing intact, clear oral mucosa Ears: bilateral: normal - Neck Neck: supple, normal ROM - Respiratory Respiratory effort: normal Respiratory: bilateral: CTA - Breasts Breasts: normal - Cardiovascular Heart rate: 88 Rhythm: regular Heart Sounds: Present: S1 & S2. Absent: gallop, rub Extremities: pulses intact, No edema, normal color, Full ROM - Gastrointestinal General gastrointestinal: Present: soft, non-tender (wall--open wound Linear 16 cm.Outer layer open.No signs of infection), tender, distended, normal bowel sounds, other - Genitourinary Male genitourinary: normal - Integumentary Integumentary: clear, warm, dry - Musculoskeletal Musculoskeletal: 1, strength equal bilaterally - Neurologic Neurologic: moves all extremities - Psychiatric Psychiatric: memory intact, appropriate mood/affect, intact judgment & insight - Labs CBC & Chem 7: 10/29/19 05:30 10/29/19 05:30 Labs: Abnormal lab results 10/29/19 10/29/19 10/29/19 Range/Units 05:30 05:30 13:10 WBC 11.2 H (4.5-11.0) K/mm3 RBC 3.36 L (3.65-5.03) M/mm3 Hgb 9.7 L (11.8-15.2) gm/dl Hct 29.4 L (35.5-45.6) % RDW 16.7 H (13.2-15.2) % Porter % (Auto) 16.0 H (0.0-7.3) % Porter # 1.8 H (0.0-0.8) K/mm3 Seg Neutrophils % 70.2 H (40.0-70.0) % Seg Neutrophils # 7.9 H (1.8-7.7) K/mm3 POC ABG pCO2 (35-45) POC ABG pO2 (80-105) BUN 23 H (9-20) mg/dL Creatinine 0.5 L (0.8-1.5) mg/dL POC Glucose 140 H (70-105) Calcium 8.3 L (8.4-10.2) mg/dL 10/29/19 10/29/19 10/30/19 Range/Units 18:02 23:58 01:05 WBC (4.5-11.0) K/mm3 RBC (3.65-5.03) M/mm3 Hgb (11.8-15.2) gm/dl Hct (35.5-45.6) % RDW (13.2-15.2) % Porter % (Auto) (0.0-7.3) % Porter # (0.0-0.8) K/mm3 Seg Neutrophils % (40.0-70.0) % Seg Neutrophils # (1.8-7.7) K/mm3 POC ABG pCO2 62.0 H (35-45) POC ABG pO2 168 H (80-105) BUN (9-20) mg/dL Creatinine (0.8-1.5) mg/dL POC Glucose 140 H 161 H (70-105) Calcium (8.4-10.2) mg/dL 10/30/19 Range/Units 06:32 WBC (4.5-11.0) K/mm3 RBC (3.65-5.03) M/mm3 Hgb (11.8-15.2) gm/dl Hct (35.5-45.6) % RDW (13.2-15.2) % Porter % (Auto) (0.0-7.3) % Porter # (0.0-0.8) K/mm3 Seg Neutrophils % (40.0-70.0) % Seg Neutrophils # (1.8-7.7) K/mm3 POC ABG pCO2 (35-45) POC ABG pO2 (80-105) BUN (9-20) mg/dL Creatinine (0.8-1.5) mg/dL POC Glucose 141 H (70-105) Calcium (8.4-10.2) mg/dL
[2019-10-30 06:52] LABS: BUN/Creatinine Ratio 52; Blood Urea Nitrogen 26 mg/dL (9-20)
[2019-10-30 06:53] LABS: Calcium 8.5 mg/dL (8.4-10.2); Hemolysis Index 0
[2019-10-30] MEDS: fentaNYL 100 MCG/2 ML INJ IV PRN (07:52)
--- NOTE | 2019-10-30 07:57 | Progress Note ---
Assessment and Plan - Patient Problems (1) Dehiscence of closure of fascia, superficial or muscular Current Visit: No Status: Acute Qualifiers: Encounter type: initial encounter Qualified Code(s): T81.32XA - Disruption of internal operation (surgical) wound, not elsewhere classified, initial encounter Plan to address problem: Pt stable. s/p ex lap with closure of abdominal wall and wound vac placement (10/05) - POD#22; s/p Re-exploration, washout, transection of colon, Abthera placement - 10/13 - POD#14; s/p abd washout, partial omentectomy, partial colectomy with colostomy - 10/16 POD#12. s/p abd washout, feeding tube placement, AbThera placement - 10/19 - POD#9; Abdominal washout and closure - 10/22 - POD#7 Patient decompensated last night. May be secondary to decreased control of a leak from the sigmoid stump. will get stat CT this AM. If fluid collection present, will ask IR to place drain. Rec: 1) Neuro - intubated. sedated. 2) CV - BP dropped this AM. 3) Resp - Re-intubated. Chest CT this Am. 4) GI - Ostomy looks good. Functioning now. Sump drains - Right drain was accidentally pulled out (10/30). Left one is still functioning. Will get CT to check for now non-drained fluid collection. Wound Vac - wound looked good yesterday. continue wound vac. Ostomy - functioning now. 5) - BUN/Cr stable. 6) ID - Abx per ID. Enterococcus on cultures. + low grade temp elevations. May be due to continued leakage from sigmoid stump. 7) Nutrition - TPN. Continue for now until tube feeds tolerated at goal. 8) DVT prophylaxis - SCDs. Lovenox 9) Family -no family at bedside. Called and spoke to her on the phone. 10) PT - will need rehab. Please call with questions. Subjective Date of service: 10/30/19 Patient Reports: Positive: other (multiple episodes of desaturation overnight. Required intubation this AM. ) Objective Vital Signs - 12hr 10/29/19 10/29/19 10/29/19 20:00 20:20 21:00 Temperature Pulse Rate 90 87 Pulse Rate [ 90 Anterior Bilateral Throughout] Pulse Rate [ 90 From Monitor] Respiratory 35 H 36 H 28 H Rate Respiratory 28 H Rate [Anterior Bilateral Throughout] Blood Pressure 197/84 157/63 O2 Sat by Pulse 93 93 Oximetry 10/29/19 10/29/19 10/29/19 21:15 22:00 22:30 Temperature Pulse Rate 85 Pulse Rate [ Anterior Bilateral Throughout] Pulse Rate [ 90 From Monitor] Respiratory 20 35 H Rate Respiratory Rate [Anterior Bilateral Throughout] Blood Pressure 141/63 O2 Sat by Pulse 94 96 80 L Oximetry 10/29/19 10/29/19 10/29/19 22:51 23:00 23:36 Temperature 98.3 F Pulse Rate 87 98 H Pulse Rate [ Anterior Bilateral Throughout] Pulse Rate [ From Monitor] Respiratory 29 H Rate Respiratory Rate [Anterior Bilateral Throughout] Blood Pressure 172/82 185/80 O2 Sat by Pulse 80 L Oximetry 10/30/19 10/30/19 10/30/19 00:00 01:00 01:30 Temperature Pulse Rate 84 81 Pulse Rate [ Anterior Bilateral Throughout] Pulse Rate [ 84 From Monitor] Respiratory 28 H 24 Rate Respiratory Rate [Anterior Bilateral Throughout] Blood Pressure 144/67 173/79 O2 Sat by Pulse 99 100 99 Oximetry 10/30/19 10/30/19 10/30/19 01:43 02:00 03:00 Temperature Pulse Rate 82 83 Pulse Rate [ 81 Anterior Bilateral Throughout] Pulse Rate [ From Monitor] Respiratory 23 24 Rate Respiratory 19 Rate [Anterior Bilateral Throughout] Blood Pressure 177/77 174/72 O2 Sat by Pulse 100 99 Oximetry 10/30/19 10/30/19 10/30/19 03:06 03:33 04:00 Temperature 99 F Pulse Rate 83 92 H Pulse Rate [ Anterior Bilateral Throughout] Pulse Rate [ From Monitor] Respiratory 31 H Rate Respiratory Rate [Anterior Bilateral Throughout] Blood Pressure 174/72 166/76 O2 Sat by Pulse 98 Oximetry 10/30/19 10/30/19 10/30/19 05:00 06:00 07:00 Temperature Pulse Rate 95 H 95 H 98 H Pulse Rate [ Anterior Bilateral Throughout] Pulse Rate [ From Monitor] Respiratory 33 H 30 H 24 Rate Respiratory Rate [Anterior Bilateral Throughout] Blood Pressure 169/77 165/75 85/41 O2 Sat by Pulse 99 99 96 Oximetry - General physical appearance no distress, no pain, other (intubated. sedated) - Respiratory normal expansion, normal respiratory effort - Abdomen soft, not distended, not guarding, not rigid, other (wound vac intact with minimal output. Left sump drain working. guardado colored liquid coming out. ) - Labs 10/29/19 05:30 10/30/19 05:15 Diabetes panel 10/30/19 Range/Units 05:15 Sodium 147 H (137-145) mmol/L Potassium 4.8 (3.6-5.0) mmol/L Chloride 107.8 H (98-107) mmol/L Carbon Dioxide 27 (22-30) mmol/L BUN 26 H (9-20) mg/dL Creatinine 0.5 L (0.8-1.5) mg/dL Glucose 139 H (75-100) mg/dL Calcium 8.5 (8.4-10.2) mg/dL Calcium panel 10/30/19 Range/Units 05:15 Calcium 8.5 (8.4-10.2) mg/dL Phosphorus 4.30 D (2.5-4.5) mg/dL Pituitary panel 10/30/19 Range/Units 05:15 Sodium 147 H (137-145) mmol/L Potassium 4.8 (3.6-5.0) mmol/L Chloride 107.8 H (98-107) mmol/L Carbon Dioxide 27 (22-30) mmol/L BUN 26 H (9-20) mg/dL Creatinine 0.5 L (0.8-1.5) mg/dL Glucose 139 H (75-100) mg/dL Calcium 8.5 (8.4-10.2) mg/dL Adrenal panel 10/30/19 Range/Units 05:15 Sodium 147 H (137-145) mmol/L Potassium 4.8 (3.6-5.0) mmol/L Chloride 107.8 H (98-107) mmol/L Carbon Dioxide 27 (22-30) mmol/L BUN 26 H (9-20) mg/dL Creatinine 0.5 L (0.8-1.5) mg/dL Glucose 139 H (75-100) mg/dL Calcium 8.5 (8.4-10.2) mg/dL
[2019-10-30] MEDS: BUDESONIDE 0.5 MG/2 ML NEBU IH SCH ×2 (08:09→20:54)
[2019-10-30] MEDS: ARFORMOTEROL 15 MCG/2 ML NEBU IH SCH ×2 (08:09→20:55)
--- NOTE | 2019-10-30 08:50 | Progress Note ---
Subjective Date of service: 10/30/19 Principal diagnosis: acute renal failure Interval history: In room Room A252-1 @ 645 for patient intubation, per MD request. VSS stable, pt was non-responsive to verbal command with labored, shallow breathing, with limited gag reflex after deep suction. Intubated pt with 7.5 ett using glide scope w/o out use of paralytic drugs, visualized cord, BBS, +co2, teeth intact, with out soft tissue trauma. tube was secured by RT. VSS stable. out of room At 700. Objective - Constitutional Vitals: Vital Signs - 12hr 10/29/19 10/29/19 10/29/19 21:00 21:15 22:00 Temperature Pulse Rate 87 85 Pulse Rate [ Anterior Bilateral Throughout] Pulse Rate [ From Monitor] Respiratory 28 H 20 Rate Respiratory Rate [Anterior Bilateral Throughout] Blood Pressure 157/63 141/63 O2 Sat by Pulse 93 94 96 Oximetry 10/29/19 10/29/19 10/29/19 22:30 22:51 23:00 Temperature Pulse Rate 87 98 H Pulse Rate [ Anterior Bilateral Throughout] Pulse Rate [ 90 From Monitor] Respiratory 35 H 29 H Rate Respiratory Rate [Anterior Bilateral Throughout] Blood Pressure 172/82 185/80 O2 Sat by Pulse 80 L 80 L Oximetry 10/29/19 10/30/19 10/30/19 23:36 00:00 01:00 Temperature 98.3 F Pulse Rate 84 81 Pulse Rate [ Anterior Bilateral Throughout] Pulse Rate [ 84 From Monitor] Respiratory 28 H 24 Rate Respiratory Rate [Anterior Bilateral Throughout] Blood Pressure 144/67 173/79 O2 Sat by Pulse 99 100 Oximetry 10/30/19 10/30/19 10/30/19 01:30 01:43 02:00 Temperature Pulse Rate 82 Pulse Rate [ 81 Anterior Bilateral Throughout] Pulse Rate [ From Monitor] Respiratory 23 Rate Respiratory 19 Rate [Anterior Bilateral Throughout] Blood Pressure 177/77 O2 Sat by Pulse 99 100 Oximetry 10/30/19 10/30/19 10/30/19 03:00 03:06 03:33 Temperature 99 F Pulse Rate 83 83 Pulse Rate [ Anterior Bilateral Throughout] Pulse Rate [ From Monitor] Respiratory 24 Rate Respiratory Rate [Anterior Bilateral Throughout] Blood Pressure 174/72 174/72 O2 Sat by Pulse 99 Oximetry 10/30/19 10/30/19 10/30/19 04:00 05:00 06:00 Temperature Pulse Rate 92 H 95 H 95 H Pulse Rate [ Anterior Bilateral Throughout] Pulse Rate [ From Monitor] Respiratory 31 H 33 H 30 H Rate Respiratory Rate [Anterior Bilateral Throughout] Blood Pressure 166/76 169/77 165/75 O2 Sat by Pulse 98 99 99 Oximetry 10/30/19 10/30/19 10/30/19 07:00 08:00 08:03 Temperature Pulse Rate 98 H 87 83 Pulse Rate [ Anterior Bilateral Throughout] Pulse Rate [ 81 From Monitor] Respiratory 24 20 Rate Respiratory Rate [Anterior Bilateral Throughout] Blood Pressure 85/41 115/57 115/57 O2 Sat by Pulse 96 99 99 Oximetry - Labs CBC & Chem 7: 10/29/19 05:30 10/30/19 05:15 Labs: Abnormal lab results 10/29/19 10/29/19 10/29/19 Range/Units 13:10 18:02 23:58 POC ABG pCO2 (35-45) POC ABG pO2 (80-105) Sodium (137-145) mmol/L Chloride (98-107) mmol/L BUN (9-20) mg/dL Creatinine (0.8-1.5) mg/dL Glucose (75-100) mg/dL POC Glucose 140 H 140 H 161 H (70-105) Magnesium (1.7-2.3) mg/dL 10/30/19 10/30/19 10/30/19 Range/Units 01:05 05:15 06:32 POC ABG pCO2 62.0 H (35-45) POC ABG pO2 168 H (80-105) Sodium 147 H (137-145) mmol/L Chloride 107.8 H (98-107) mmol/L BUN 26 H (9-20) mg/dL Creatinine 0.5 L (0.8-1.5) mg/dL Glucose 139 H (75-100) mg/dL POC Glucose 141 H (70-105) Magnesium 2.40 H (1.7-2.3) mg/dL
[2019-10-30] MEDS: PANTOPRAZOLE 40 MG INJ IV SCH (09:19)
[2019-10-30] MEDS: METOPROLOL TARTRATE 50 MG TAB PO SCH ×2 (09:19→16:12)
[2019-10-30 09:34] LABS: Basophils % (Auto) 0.1 % (0.0-1.8); Hematocrit 32.4 % (35.5-45.6); Hemoglobin 10.1 gm/dl (11.8-15.2); Lymphocytes # (Auto) 1.5 K/mm3 (1.2-5.4); Lymphocytes % (Auto) 11.2 % (13.4-35.0); Mean Corpuscular HGB Conc 31 % (32-34); Mean Corpuscular Volume 90 fl (84-94); Monocytes # (Auto) 1.9 K/mm3 (0.0-0.8); Monocytes % (Auto) 13.6 % (0.0-7.3); Platelet Count 366 K/mm3 (140-440); Red Blood Count 3.59 M/mm3 (3.65-5.03); Red Cell Distribution Width 17.4 % (13.2-15.2)
[2019-10-30] MEDS: LISINOPRIL 20 MG TAB PO SCH (10:12)
[2019-10-30] MEDS: CITALOPRAM 20 MG TAB PO SCH (10:12)
[2019-10-30] MEDS: AMIODARONE 200 MG TAB PO SCH (10:12)
--- NOTE | 2019-10-30 10:25 | Progress Note ---
Assessment and Plan Assessment and plan: Sepsis, recurrent. Patient with new fevers that have been persistent. ID restarted antibiotics. Etiology likely secondary to fluid collection/abscess in the abdomen and anastomotic leak. Follow-up blood culture, fungal blood culture, UA, urine culture, CXR ordered. Whitfield was removed and urinalysis sent. Given recent prolonged exposure to abx and TPN, at risk of MDR infections, ID started empiric Meropenem and Micafungin Dehiscence of closure of fascia * Went to OR for ex lap with closure of abdominal wall and wound vac placement (10/05) * Continued to decline with possible Air vs fluid, 10/10/19 IR went in and placed two drains, Noted to have possible fecal material * Returned to the OR 10/13/19 due to concern for intra-abdominal infection and was found to have with heavy contamination of abdomen patent had disruption of bowel anastomosis, abdominal washout, abthera placement and colon stapled transection and left bowel enterotomy from anastomosis completely open * Returned to OR on 10/16/19 for abdominal washout, Partial Omentectomy, Partial Colectomy, Colostomy Creation and AbThera Placement * Abdominal washout and closure - 10/22 * cont wound care * * Acute Respiratory failure with hypoxia -Extubated 10/25/19 - Re-intubated today 10/30 -Filler Feeder following right sump drain felll out yesterday Surgeon following Left lower lobe pneumonia -Continue IV antibiotic -CTA chest showed left lower lobe consolidation with pleural effusion GUILLERMO on CRF -probably ATN due to sepsis -Improving, will monitor -SPEP and UPEP pending -No hydronephrosis on CT -Whitfield in place, monitor I/O's Severe Metabolic acidosis -Improved Acute Toxic Metabolic Encephalopathy/Delirium Tremens -Started on CIWA protocol due to hx of ETOH abuse, 6packs a day -Head CT scan negative for acute findings Acute blood loss anemia -H/H stable -Continue to monitor H&H and transfuse for hb<7 SVT, Atrial fib/flutter with RVR -treated with adenosine x1 -off amiodarone and cardizem drip. On oral amiodarone and IV Lopressor. -HR currently controlled -Cardiology following Hypotension -Off esmolol drip -s/p IV fluid boluses, BP stable Hypophosphatemia -will monitor level Hx of Hypertension -Stable Hyperlipidemia -stable Atypical chest pain -probably secondary to pneumonitis -troponin levels neg Hx of MD/CAD -s/p PCI of the circumflex and second vessel POBA of the distal LAD occlusion. Left ventricle fraction of 45-50%. Morbid obesity with BMI of 45.4 -Lifestyle modification recommended COPD -Stable -cont neb tx Moderate Protein calorie malnutrition secondary to surgery -On TPN -Nutrition following Tobacco abuse -Cessation recommended Morbid obesity with BMI of 45.4 -Lifestyle modification recommended DVT and GI ppx: Lovenox/PPI Disp: Prognosis guarded The high probability of a clinically significant, sudden or life threatening deterioration of the [respiratory] system(s) required my full and direct attention, intervention and personal management. The aggregate critical care time was [35] minutes. This time is in addition to time spent performing reported procedures but includes the following: [x] Data Review and interpretation [x] Patient assessment and monitoring of vital signs [x] Documentation [x] Medication orders and management History Interval history: Re-intubated this morning Hospitalist Physical - Physical exam Narrative exam: Gen: Not in acute distress, Intubated, sedated HEENT: Normocephalic, atraumatic Neck: supple, no JVD Heart: S1 and S2 reg, no murmurs, rubs or gallop Lungs: clear to auscultation, no crackles Abd: soft, NT, ostomy, wound vac, drain Ext: No edema, no clubbing no cyanosis Neuro: Intubated, sedated - Constitutional Vitals: Temp Pulse Resp BP Pulse Ox 99 F 67 26 H 126/57 95 10/30/19 03:33 10/30/19 10:12 10/30/19 09:00 10/30/19 10:12 10/30/19 09:00 General appearance: Present: no acute distress, obese Results - Labs CBC & Chem 7: 10/30/19 05:15 10/30/19 05:15 Labs: Laboratory Last Values WBC 13.8 K/mm3 (4.5-11.0) H 10/30/19 05:15 RBC 3.59 M/mm3 (3.65-5.03) L 10/30/19 05:15 Hgb 10.1 gm/dl (11.8-15.2) L 10/30/19 05:15 Hct 32.4 % (35.5-45.6) L 10/30/19 05:15 MCV 90 fl (84-94) 10/30/19 05:15 MCH 28 pg (28-32) 10/30/19 05:15 MCHC 31 % (32-34) L 10/30/19 05:15 RDW 17.4 % (13.2-15.2) H 10/30/19 05:15 Plt Count 366 K/mm3 (140-440) 10/30/19 05:15 Lymph % (Auto) 11.2 % (13.4-35.0) L 10/30/19 05:15 [place] % (Auto) 13.6 % (0.0-7.3) H 10/30/19 05:15 Eos % (Auto) 0.0 % (0.0-4.3) 10/30/19 05:15 Baso % (Auto) 0.1 % (0.0-1.8) 10/30/19 05:15 Lymph # 1.5 K/mm3 (1.2-5.4) 10/30/19 05:15 [place] # 1.9 K/mm3 (0.0-0.8) H 10/30/19 05:15 Eos # 0.0 K/mm3 (0.0-0.4) 10/30/19 05:15 Baso # 0.0 K/mm3 (0.0-0.1) 10/30/19 05:15 Add Manual Diff Complete 10/16/19 09:20 Total Counted 100 10/16/19 09:20 Seg Neutrophils % 75.1 % (40.0-70.0) H 10/30/19 05:15 Seg Neuts % (Manual) 79.0 % (40.0-70.0) H 10/16/19 09:20 Band Neutrophils % 12.0 % 10/16/19 09:20 Lymphocytes % (Manual) 4.0 % (13.4-35.0) L 10/16/19 09:20 Reactive Lymphs % (Man) 0 % 10/16/19 09:20 Monocytes % (Manual) 2.0 % (0.0-7.3) 10/16/19 09:20 Eosinophils % (Manual) 0 % (0.0-4.3) 10/16/19 09:20 Basophils % (Manual) 0 % (0.0-1.8) 10/16/19 09:20 Metamyelocytes % 2.0 % 10/16/19 09:20 Myelocytes % 1.0 % 10/16/19 09:20 Promyelocytes % 0 % 10/16/19 09:20 Blast Cells % 0 % 10/16/19 09:20 Nucleated RBC % Not Reportable 10/16/19 09:20 Seg Neutrophils # 10.4 K/mm3 (1.8-7.7) H 10/30/19 05:15 Seg Neutrophils # Man 11.5 K/mm3 (1.8-7.7) H 10/16/19 09:20 Band Neutrophils # 1.8 K/mm3 10/16/19 09:20 Lymphocytes # (Manual) 0.6 K/mm3 (1.2-5.4) L 10/16/19 09:20 Abs React Lymphs (Man) 0.0 K/mm3 10/16/19 09:20 Monocytes # (Manual) 0.3 K/mm3 (0.0-0.8) 10/16/19 09:20 Eosinophils # (Manual) 0.0 K/mm3 (0.0-0.4) 10/16/19 09:20 Basophils # (Manual) 0.0 K/mm3 (0.0-0.1) 10/16/19 09:20 Metamyelocytes # 0.3 K/mm3 10/16/19 09:20 Myelocytes # 0.1 K/mm3 10/16/19 09:20 Promyelocytes # 0.0 K/mm3 10/16/19 09:20 Blast Cells # 0.0 K/mm3 10/16/19 09:20 WBC Morphology Not Reportable 10/16/19 09:20 Hypersegmented Neuts Not Reportable 10/16/19 09:20 Hyposegmented Neuts Not Reportable 10/16/19 09:20 Hypogranular Neuts Not Reportable 10/16/19 09:20 Smudge Cells Not Reportable 10/16/19 09:20 Toxic Granulation Not Reportable 10/16/19 09:20 Toxic Vacuolation Not Reportable 10/16/19 09:20 Dohle Bodies Not Reportable 10/16/19 09:20 Pelger-Huet Anomaly Not Reportable 10/16/19 09:20 Andres Rods Not Reportable 10/16/19 09:20 Platelet Estimate Consistent w auto 10/16/19 09:20 Clumped Platelets Not Reportable 10/16/19 09:20 Plt Clumps, EDTA Not Reportable 10/16/19 09:20 Large Platelets Not Reportable 10/16/19 09:20 Giant Platelets Not Reportable 10/16/19 09:20 Platelet Satelliting Not Reportable 10/16/19 09:20 Plt Morphology Comment Not Reportable 10/16/19 09:20 RBC Morphology Not Reportable 10/16/19 09:20 Dimorphic RBCs Not Reportable 10/16/19 09:20 Polychromasia Few 10/16/19 09:20 Hypochromasia Few 10/16/19 09:20 Poikilocytosis Not Reportable 10/16/19 09:20 Anisocytosis Not Reportable 10/16/19 09:20 Microcytosis Not Reportable 10/16/19 09:20 Macrocytosis Not Reportable 10/16/19 09:20 Spherocytes Not Reportable 10/16/19 09:20 Pappenheimer Bodies Not Reportable 10/16/19 09:20 Sickle Cells Not Reportable 10/16/19 09:20 Target Cells Few 10/16/19 09:20 Tear Drop Cells Not Reportable 10/16/19 09:20 Ovalocytes Not Reportable 10/16/19 09:20 Helmet Cells Not Reportable 10/16/19 09:20 [place] Bodies Not Reportable 10/16/19 09:20 [place] Rings Not Reportable 10/16/19 09:20 Bishnu Cells Not Reportable 10/16/19 09:20 Bite Cells Not Reportable 10/16/19 09:20 Crenated Cell Not Reportable 10/16/19 09:20 Elliptocytes Not Reportable 10/16/19 09:20 Acanthocytes (Spur) Not Reportable 10/16/19 09:20 Rouleaux Not Reportable 10/16/19 09:20 Hemoglobin C Crystals Not Reportable 10/16/19 09:20 Schistocytes Not Reportable 10/16/19 09:20 Malaria parasites Not Reportable 10/16/19 09:20 Toni Bodies Not Reportable 10/16/19 09:20 Hem Pathologist Commnt No 10/16/19 09:20 POC ABG pH 7.396 (7.35-7.45) 10/30/19 09:44 ABG pH 7.390 pH Units (7.350-7.450) 10/23/19 04:47 POC ABG pCO2 51.7 (35-45) H 10/30/19 09:44 ABG pCO2 48.4 mm Hg 10/23/19 04:47 POC ABG pO2 111 (80-105) H 10/30/19 09:44 ABG pO2 68.9 mm Hg (80.0-90.0) L 10/23/19 04:47 POC ABG HCO3 31.7 (22-26 mml/L) 10/30/19 09:44 ABG HCO3 28.7 mmol/L (20.0-26.0) H 10/23/19 04:47 POC ABG Total CO2 33 (23-27mmol/L) 10/30/19 09:44 POC ABG O2 Sat 98 10/30/19 09:44 ABG O2 Saturation 96.6 % (95.0-99.0) 10/23/19 04:47 ABG O2 Content 8.8 (0.0-44) 10/23/19 04:47 POC ABG Base Excess 7 ((-2) - (+3)mmol/L) 10/30/19 09:44 ABG Base Excess 3.4 mmol/L (-2.0-3.0) H 10/23/19 04:47 ABG Hemoglobin 6.6 gm/dl (14.0-18.0) L 10/23/19 04:47 ABG Carboxyhemoglobin 2.1 % (0.0-5.0) 10/23/19 04:47 ABG Methemoglobin 0.5 % (0.0-1.5) 10/23/19 04:47 Oxyhemoglobin 94.1 % (95.0-99.0) L 10/23/19 04:47 FiO2 50 % 10/30/19 09:44 Sodium 147 mmol/L (137-145) H 10/30/19 05:15 Potassium 4.8 mmol/L (3.6-5.0) 10/30/19 05:15 Chloride 107.8 mmol/L (98-107) H 10/30/19 05:15 Carbon Dioxide 27 mmol/L (22-30) 10/30/19 05:15 Anion Gap 17 mmol/L 10/30/19 05:15 BUN 26 mg/dL (9-20) H 10/30/19 05:15 Creatinine 0.5 mg/dL (0.8-1.5) L 10/30/19 05:15 Estimated GFR > 60 ml/min 10/30/19 05:15 BUN/Creatinine Ratio 52 % 10/30/19 05:15 Glucose 139 mg/dL (75-100) H 10/30/19 05:15 POC Glucose 141 (70-105) H 10/30/19 06:32 Hemoglobin A1c 5.7 % (4-6) 10/06/19 05:36 Lactic Acid 1.10 mmol/L (0.7-2.0) 10/13/19 04:20 Calcium 8.5 mg/dL (8.4-10.2) 10/30/19 05:15 Ionized Calcium 5.2 mg/dL (4.8-5.6) 10/18/19 07:41 Phosphorus 4.30 mg/dL (2.5-4.5) D 10/30/19 05:15 Magnesium 2.40 mg/dL (1.7-2.3) H 10/30/19 05:15 Total Bilirubin 1.10 mg/dL (0.1-1.2) 10/26/19 06:15 Direct Bilirubin 0.7 mg/dL (0-0.2) H 10/23/19 10:44 Indirect Bilirubin 0.1 mg/dL 10/23/19 10:44 AST 23 units/L (5-40) 10/26/19 06:15 ALT 13 units/L (7-56) 10/26/19 06:15 Alkaline Phosphatase 148 units/L (35-129) H 10/26/19 06:15 Ammonia 49.0 umol/L (25-60) 10/13/19 04:20 Troponin T < 0.010 ng/mL (0.00-0.029) 10/09/19 17:23 C-Reactive Protein 30.60 mg/dL (0.00-1.30) H 10/15/19 04:32 Serum Total Protein 5.2 g/dL (6.1-8.1) L 10/11/19 09:00 Total Protein 5.9 g/dL (6.3-8.2) L 10/26/19 06:15 Albumin 2.4 g/dL (3.9-5) L 10/26/19 06:15 Albumin/Globulin Ratio 0.7 % 10/26/19 06:15 Prealbumin 0.030 g/L (0.200-0.400) L 10/15/19 04:32 [id number] See scanned result 10/11/19 Unknown [id number] See scanned result 10/11/19 Unknown Beta Globulins See scanned result 10/11/19 Unknown Gamma Globulins See scanned result 10/11/19 Unknown Abnorm Protein Band 1 see below 10/11/19 09:00 PEP Interpretation See scanned result 10/11/19 Unknown Triglycerides 185 mg/dL (2-149) H 10/26/19 06:15 Urine Color Yellow (Yellow) 10/26/19 Unknown Urine Turbidity Clear (Clear) 10/26/19 Unknown Urine pH 9.0 (5.0-7.0) H 10/26/19 Unknown Ur Specific [place] 1.011 (1.003-1.030) 10/26/19 Unknown Urine Protein 30 mg/dl mg/dL (Negative) 10/26/19 Unknown Urine Glucose (UA) Neg mg/dL (Negative) 10/26/19 Unknown Urine Ketones Neg mg/dL (Negative) 10/26/19 Unknown Urine Blood Neg (Negative) 10/26/19 Unknown Urine Nitrite Neg (Negative) 10/26/19 Unknown Urine Bilirubin Neg (Negative) 10/26/19 Unknown Urine Urobilinogen < 2.0 mg/dL (<2.0) 10/26/19 Unknown Ur Leukocyte Esterase Neg (Negative) 10/26/19 Unknown Urine WBC (Auto) 1.0 /HPF (0.0-6.0) 10/26/19 Unknown Urine RBC (Auto) 1.0 /HPF (0.0-6.0) 10/26/19 Unknown Urine Bacteria (Auto) 1+ /HPF (Negative) 10/11/19 06:23 Urine Mucus Few /HPF 10/26/19 Unknown Urine Eosinophils None seen (None Seen) 10/11/19 06:23 Ur Random Creatinine See scanned result 10/11/19 Unknown U Random Total Protein See scanned result 10/11/19 Unknown Urine Creatinine 116.8 mg/dL (0.1-20.0) H 10/11/19 06:23 Urine Creatinine 118.2 mg/dL (0.1-20.0) H 10/11/19 06:23 Protein/Creatinin Ratio See scanned result 10/11/19 Unknown Urine Sodium 14 mmol/L 10/11/19 06:23 Urine Total Protein 104 mg/dL (5-11.8) H 10/11/19 06:23 Urine Total Protein 105 mg/dL (5-11.8) H 10/11/19 06:23 U Abnormal Prot Band 1 See scanned result 10/11/19 Unknown U Abnormal Prot Band 2 See scanned result 10/11/19 Unknown U Abnormal Prot Band 3 See scanned result 10/11/19 Unknown Vancomycin Trough 16.9 ug/mL (5.0-20.0) 10/28/19 12:25 Digoxin 0.7 ng/mL (0.9-2.0) L 10/19/19 04:21 Blood Type A POSITIVE 10/23/19 11:50 Antibody Screen Negative 10/23/19 11:50 Crossmatch See Detail 10/23/19 11:50 Active Medications - Current Medications Current Medications: Generic Name Dose Route Start Last Admin Trade Name Freq PRN Reason Stop Dose Admin Acetaminophen 650 mg 10/25/19 13:00 10/27/19 15:56 Tylenol FEEDTUBE 650 mg Q4H PRN Administration Fever >100.5 Albuterol 2.5 mg 10/05/19 21:36 Proventil IH Q4HRT PRN Shortness Of Breath Albuterol/Ipratropium 1 ampul 10/06/19 02:00 10/30/19 08:09 Duoneb *Not For Prn Use* IH 1 ampul Q6HRT VERÓNICA Administration Amiodarone HCl 200 mg 10/23/19 13:00 10/30/19 10:12 Cordarone PO 200 mg QDAY VERÓNICA Administration Lipase/Protease/Amylase 1 each 10/20/19 10:37 Pancremeeta Moreno 10,500 Unit FEEDTUBE PRN PRN For Clogged Feeding Tube Arformoterol Tartrate 15 mcg 10/06/19 08:30 12/17/19 08:09 Brovana Nebu IH 15 mcg Q12HRT VERÓNICA Administration Budesonide 0.5 mg 10/07/19 12:20 10/30/19 08:09 Pulmicort IH 0.5 mg Q12HRT VERÓNICA Administration Citalopram Hydrobromide 20 mg 10/27/19 12:00 10/30/19 10:12 Celexa PO 20 mg DAILY VERÓNICA Administration Enoxaparin Sodium 40 mg 10/30/19 22:00 Enoxaparin SUB-Q QDAY@2200 [facility] Fentanyl 50 mcg 10/25/19 12:35 10/30/19 07:52 Sublimaze IV 50 mcg Q2H PRN Administration PAIN SCORE </=5 Haloperidol Lactate 5 mg 10/25/19 18:22 10/26/19 10:51 Haldol IV 5 mg Q6H PRN Administration Agitation Hydralazine HCl 10 mg 10/28/19 14:09 10/30/19 03:06 Apresoline IV 10 mg Q4HR PRN Administration Hypertension Hydromorphone HCl 2 mg 10/25/19 12:35 10/29/19 20:20 Dilaudid IV 2 mg Q4H PRN Administration PAIN SCORE >/=6 MEROPENEM/NS 1 GRAM/100 ML 1 gram in 100 mls @ 100 mls/hr 10/26/19 18:30 10/30/19 10:12 Merrem/Ns 1 Gram/100 Ml IV 100 mls/hr Q8H [facility] Administration Protocol Micafungin Sodium 100 mg/ 100 mls @ 100 mls/hr 10/26/19 18:30 10/29/19 10:03 Sodium Chloride IV 100 mls/hr QDAY [facility] Administration Protocol Amino Acids/Electrolytes/Dextrose 1,800 mls @ 75 mls/hr 10/29/19 20:00 10/29/19 20:49 Tpn Adult IV 75 mls/hr DAILY@2000 [facility] Administration Protocol Insulin Human Lispro 0 unit 10/14/19 12:00 10/30/19 07:52 Humalog SUB-Q Not Given Q6HR [facility] Protocol Lisinopril 20 mg 10/30/19 10:00 10/30/19 10:12 Zestril PO 20 mg QDAY VERÓNICA Administration Metoprolol Tartrate 2.5 mg 10/15/19 15:34 10/28/19 17:07 Metoprolol IV 2.5 mg Q4HR PRN Administration HR >130 Metoprolol Tartrate 50 mg 10/25/19 14:00 10/30/19 09:19 Metoprolol PO 50 mg Q8HR VERÓNICA Administration Multi-Ingred Cream/Lotion/Oil/Oint 1 applic 10/14/19 02:19 Artificial Tears Ophth Oint OU Q4HR PRN Dry Eye(s) Ondansetron HCl 4 mg 10/05/19 21:22 10/11/19 18:20 Zofran IV 4 mg Q3H PRN Administration Nausea And Vomiting Pantoprazole Sodium 40 mg 10/15/19 10:00 10/30/19 09:19 Protonix IV 40 mg QDAY VERÓNICA Administration Simple Syrup 15 ml 10/20/19 10:37 Simple Syrup FEEDTUBE PRN PRN Hypoglycemia Simple Syrup 30 ml 10/20/19 10:37 Simple Syrup FEEDTUBE PRN PRN Hypoglycemia Sodium Bicarbonate 325 mg 10/20/19 10:37 Sodium Bicarbonate FEEDTUBE PRN PRN For Clogged Feeding Tube Sodium Chloride 10 ml 10/05/19 21:22 10/19/19 09:29 Sodium Chloride Flush Syringe 10 Ml IV 10 ml PRN PRN Administration LINE FLUSH Nutrition/Malnutrition Assess - Dietary Evaluation Nutrition/Malnutrition Findings: Nutrition Notes Start: 10/08/19 11:36 Freq: Status: Active Protocol: Document 10/29/19 10:42 LM (Rec: 10/29/19 10:51 LM [email or web address]) Nutrition Notes Initial or Follow up Reassessment Current Diagnosis Acute Kidney Injury,COPD, Hypertension Other Pertinent Diagnosis intra-abdominal infection, disruption of bowel anastomosis, LE edema Current Diet CPN at 100 ml/hr + Vital AF 1. 2 at 20 ml/hr Labs/Tests BUN 23 Cr 0.5 Pertinent Medications Reviewed Height 6 ft Weight 145 kg Mcdaniel Body Weight (kg) 80.90 BMI 43.3 Subjective/Other Information CPN day 15. Observed Vital running at 20 ml/hr. Pt not yet advanced to clear liquids. MD would like to advance TF to goal. Percent of energy/protein needs met: 82%/100% (TF and TPN) Burn Absent Trauma Absent GI Symptoms None Current % PO Negligible Minimum of two criteria No Fluid Accumulation Mild (non-severe) #2 Nutrition Diagnosis Inadequate oral intake Diagnosis Progress(for reassessment Continues documentation) #1 Nutrition Diagnosis Increased nutrient needs ( specify in comment below) Diagnosis Progress(for reassessment Continues documentation) Is patient on ventilator? No Is Patient Ambulatory and/or Out of Bed No REE-([place]-St. Jeor-confined to bed) 2785.236 Kcal/Kg value to use for calculation 14 Approximate Energy Requirements Using 2030 kcal/Kg Calculation Used for Recommendations Kcal/kg Additional Notes Protein: 202g (up to 2.5 g/kg IBW 80.9 kg) Pay attention to renal issues Fluid: 1 ml/kcal or per MD Nutrition Intervention Change Diet Order: Continue CPN and advance TF to Vital 1.2 at 70ml/hr Flush 100ml q4h Nutrition Support: Cjange CPN to 75ml/hr: 8.3% dextrose, 4.4% amino acids, 90 mEq K, MVI Osmolality: 972 Kcal 830 Protein (gm) 80 Carbohydrates (gm) 150 Fat (gm) 0 Fluid (mL) 1,800 Fiber (gm) 0 Goal #1 Meet energy and protein needs as best as possible via CPN and TF Goal #2 TF tolerance Anticipated Discharge Needs: unable to determine at this time Follow-Up By: 10/30/19 Additional Comments Labs in AM: CMP, Mg, Phos Follow for TF tolerance
--- NOTE | 2019-10-30 10:30 | XRay Report ---
CHEST 1 VIEW INDICATION: Oral intubation. COMPARISON: Yesterday FINDINGS: Support devices: New endotracheal tube just below the level the clavicles. Right-sided PICC line rajwinder ins in satisfactory position. Heart: Within normal limits. Lungs/Pleura: Improved aeration in the lungs with small layering effusions bilaterally and decreased edema. Additional findings: None. IMPRESSION: 1. New ET tube in satisfactory position. 2. Improved exam. Signer Name: Hilario Day MD Signed: 10/30/2019 10:25 AM Workstation Name: [id number]
[2019-10-30] MEDS ORDERED: SIMPLE SYRUP 15 ML FEEDTUBE PRN ×2 (10:37)
[2019-10-30] MEDS ORDERED: SODIUM BICARBONATE 325 MG TAB FEEDTUBE PRN (10:37)
[2019-10-30] MEDS ORDERED: LIPASE 10,500/PROTEASE 25,000/AMYLASE 43,750 (UNITS) DR CAP FEEDTUBE PRN (10:37)
[2019-10-30] MEDS: HYDROmorphone 2 MG/1 ML INJ IV PRN ×3 (10:45→17:00)
--- NOTE | 2019-10-30 10:52 | Progress Note ---
Assessment and Plan 54 y/o male with anastomic leak 10/30: Acute on chronic respiratory failure requiring reintubation. Appreciate Anesthesia assistance as he was a difficult intubation when we had to change his tube out about 1 week ago. Will continue on 100% until after Scans and then start to wean back down. CXR yesterday looked like pulmonary edema but improved today with positive pressure. Continue supportive care and await results of scans. 10/29: Discussed today on rounds. Patient had some issues over the weekend with the ICE chips and liquids. Will obtain speech consult/eval prior to restarting clears today. Spoke with nutrition and they will adjust tube feeds with new goal. Once at goal will start to taper off TPN. ordered Incentive madhu to bedside. Will also restart home dose of elaine today. pain control and drainage monitoring. Will continue ICU care. 10/26: Patient stable overall. Not ready for floor. Would be ok with step down if beds are needed. If spikes temp again will order blood cultures x2, urine culture, UA and repeat CXR. Gave an additional 40 of lasix this am. Will give more potassium replacement. Continue trickle feeds for now. Will continue PO meds and restart home dose of citalopram. Wean FiO2 and flow for sats >88%. Mildly hypertensive but this was secondary to agitation. Normalizing now. 10/25: Will extubate today. Will use HFNC if distress or hypoxemia is noted. Not a good candidate for bipap given his recent abdominal issues. Spoke with who is now at bedside and surgery. Will continue to attempt to achieve net negative state daily. Hold on further albumin administration. Hypernatremia is iatrogenic from lasix administration Worse case scenario, will re-intubate with anesthesia. 10/24: Responding well to lasix and protein therapy. Will give 2 more doses of lasix today. Consider one for tonight as well. Last albumin today at 1800. CXR is stable, still with layering bilateral pleural effusions. Will reassess again tomorrow. Reviewed all other outside sales consultant notes. Spoke with sisters at bedside, updated and spoke with surgery. 10/23: Long discussion with surgery and via phone. Anasarca is likely from decreased oncotic pressure and immobility of several days now that abdomen is finally closed. Now fluid is essentially leaking into the interstitium now that the abdomen is shut and there is increased intra-abdominal pressure. Total Protein is 4.5 and albumin is 1.2. This is to be expected given current illness. Will attempt to increase oncotic pressure with 2 units of PRBC's and albumin infusions for the next 24 hours starting at midnight tonight. Will give lasix inbetween transfusions and then again tonight. CXR is consistent with pulmonary edema volume overload. Will continue vent for now and after significant volume removal then will attempt extubation. Discussed with and she understands. Will continue to monitor. Agree with trickle feeds and cards has switched amio over to PO to be given through the G-tube. If tolerates, hopeful to be rid of TPN soon as this is necessary but excessive volume as well. 10/22: Added diprovan as more sedation was needed. Hopefully once closed and no leaks, patient can be extubated. Cards very concerned about length of time for IV amio. Will discuss with surgery the time frame that gut can be used. 10/21: Will hold on weaning until abdomen is closed, especially knowing mental status is good. Will focus on pain control. Replace electrolytes. Appreciate Surgery recs and detail. Follow up any new recs from cards. Or tomorrow for closure CCT 31 minutes. Subjective Date of service: 10/30/19 Principal diagnosis: acute renal failure Interval history: Had desaturations last night. HFNC was increased to 100%. I was notified around 12:30 and then 0100 with ABG results. Per nursing and RT, patient awake and did not require intubation. He was not a candidate for bipap therapy. Subsequently around 0700, patient required intubation. I found out from Dr. Gayle about an hour post intubation. This am on rounds, desatted to 72. Awake and would answer when named called. Placed on 100% and bagged back up to 100 with ease. BP stable and HR stable. Going for CT of chest abdomen and pelvis now. Objective Vital Signs - 12hr 10/29/19 10/29/19 10/29/19 22:51 23:00 23:36 Temperature 98.3 F Pulse Rate 87 98 H Pulse Rate [ Anterior Bilateral Throughout] Pulse Rate [ From Monitor] Respiratory 29 H Rate Respiratory Rate [Anterior Bilateral Throughout] Blood Pressure 172/82 185/80 O2 Sat by Pulse 80 L Oximetry 10/30/19 10/30/1910/30/19 00:00 01:00 01:30 Temperature Pulse Rate 84 81 Pulse Rate [ Anterior Bilateral Throughout] Pulse Rate [ 84 From Monitor] Respiratory 28 H 24 Rate Respiratory Rate [Anterior Bilateral Throughout] Blood Pressure 144/67 173/79 O2 Sat by Pulse 99 100 99 Oximetry 10/30/19 10/30/19 10/30/19 01:43 02:00 03:00 Temperature Pulse Rate 82 83 Pulse Rate [ 81 Anterior Bilateral Throughout] Pulse Rate [ From Monitor] Respiratory 23 24 Rate Respiratory 19 Rate [Anterior Bilateral Throughout] Blood Pressure 177/77 174/72 O2 Sat by Pulse 100 99 Oximetry 10/30/19 10/30/19 10/30/19 03:06 03:33 04:00 Temperature 99 F Pulse Rate 83 92 H Pulse Rate [ Anterior Bilateral Throughout] Pulse Rate [ From Monitor] Respiratory 31 H Rate Respiratory Rate [Anterior Bilateral Throughout] Blood Pressure 174/72 166/76 O2 Sat by Pulse 98 Oximetry 10/30/19 10/30/19 10/30/19 05:00 06:00 07:00 Temperature Pulse Rate 95 H 95 H 98 H Pulse Rate [ Anterior Bilateral Throughout] Pulse Rate [ From Monitor] Respiratory 33 H 30 H 24 Rate Respiratory Rate [Anterior Bilateral Throughout] Blood Pressure 169/77 165/75 85/41 O2 Sat by Pulse 99 99 96 Oximetry 10/30/19 10/30/19 10/30/19 08:00 08:03 08:41 Temperature Pulse Rate 87 83 Pulse Rate [ 81 Anterior Bilateral Throughout] Pulse Rate [ 81 From Monitor] Respiratory 20 Rate Respiratory 20 Rate [Anterior Bilateral Throughout] Blood Pressure 115/57 115/57 O2 Sat by Pulse 99 99 Oximetry 10/30/19 10/30/19 10/30/19 09:00 09:19 10:12 Temperature Pulse Rate 81 78 67 Pulse Rate [ Anterior Bilateral Throughout] Pulse Rate [ From Monitor] Respiratory 26 H Rate Respiratory Rate [Anterior Bilateral Throughout] Blood Pressure 146/64 126/64 126/57 O2 Sat by Pulse 95 Oximetry Constitutional: alert, other (critically ill on HFNC) Eyes: non-icteric ENT: oropharynx moist Neck: supple Effort: mildly labored Ascultation: Bilateral: diminished breath sounds (bases) Cardiovascular: regular rate and rhythm (no mrg) Gastrointestinal: tender, other (obese, distended) Integumentary: normal Extremities: no cyanosis, pink and warm, edema (1+ bilateral LE edema) Neurologic: normal mental status, non-focal exam, pupils equal and round Psychiatric: mood appropriate, affect normal CBC and BMP: 10/30/19 05:15 10/30/19 05:15 ABG, PT/INR, D-dimer: ABG POC ABG pH 7.396 (7.35-7.45) 10/30/19 09:44 ABG pH 7.390 pH Units (7.350-7.450) 10/23/19 04:47 POC ABG pCO2 51.7 (35-45) H 10/30/19 09:44 ABG pCO2 48.4 mm Hg 10/23/19 04:47 POC ABG pO2 111 (80-105) H 10/30/19 09:44 ABG pO2 68.9 mm Hg (80.0-90.0) L 10/23/19 04:47 POC ABG HCO3 31.7 (22-26 mml/L) 10/30/19 09:44 POC ABG Total CO2 33 (23-27mmol/L) 10/30/19 09:44 POC ABG O2 Sat 98 10/30/19 09:44 ABG O2 Saturation 96.6 % (95.0-99.0) 10/23/19 04:47 Abnormal lab findings: Abnormal Labs 10/06/19 10/06/19 10/07/19 05:36 05:36 05:54 WBC 21.8 H 21.5 H RBC 3.55 L Hgb 10.9 L Hct 32.7 L MCHC RDW Plt Count Lymph % (Auto) Arthur % (Auto) Lymph # Arthur # Seg Neutrophils % Seg Neuts % (Manual) 91.0 H Lymphocytes % (Manual) 2.0 L Seg Neutrophils # Seg Neutrophils # Man 19.8 H Lymphocytes # (Manual) 0.4 L Monocytes # (Manual) 1.1 H POC ABG pH ABG pH POC ABG pCO2 POC ABG pO2 ABG pO2 ABG HCO3 ABG Base Excess ABG Hemoglobin Oxyhemoglobin Sodium 135 L Potassium Chloride 95.9 L Carbon Dioxide BUN Creatinine 0.7 L Glucose POC Glucose Calcium Phosphorus Magnesium Direct Bilirubin AST Alkaline Phosphatase C-Reactive Protein Serum Total Protein Total Protein 5.7 L Albumin 2.5 L Prealbumin Bzmbl-0-Tnulxnwss Exlsu-8-Qxoiykpfy Gamma Globulins PEP Interpretation Triglycerides Urine pH Urine Creatinine Urine Total Protein Digoxin Crossmatch 10/07/19 10/09/19 10/09/19 05:54 10:52 10:52 WBC 16.6 H RBC Hgb Hct MCHC RDW Plt Count 498 H Lymph % (Auto) Arthur % (Auto) Lymph # Arthur # Seg Neutrophils % Seg Neuts % (Manual) 93.0 H Lymphocytes % (Manual) 5.0 L Seg Neutrophils # Seg Neutrophils # Man 15.4 H Lymphocytes # (Manual) 0.8 L Monocytes # (Manual) POC ABG pH ABG pH POC ABG pCO2 POC ABG pO2 ABG pO2 ABG HCO3 ABG Base Excess ABG Hemoglobin Oxyhemoglobin Sodium Potassium Chloride 97.9 L Carbon Dioxide 20 L D BUN 23 H Creatinine 1.7 H D Glucose 109 H POC Glucose Calcium 8.1 L Phosphorus Magnesium Direct Bilirubin AST Alkaline Phosphatase C-Reactive Protein Serum Total Protein Total Protein Albumin Prealbumin Hubsu-7-Zrqeoinxv Ddfep-2-Pezihinge Gamma Globulins PEP Interpretation Triglycerides Urine pH Urine Creatinine Urine Total Protein Digoxin Crossmatch 10/09/19 10/10/19 10/10/19 17:23 05:30 05:30 WBC 14.6 H RBC Hgb 11.1 L Hct 33.5 L MCHC RDW Plt Count 527 H Lymph % (Auto) Arthur % (Auto) Lymph # Arthur # Seg Neutrophils % Seg Neuts % (Manual) Lymphocytes % (Manual) Seg Neutrophils # Seg Neutrophils # Man Lymphocytes # (Manual) Monocytes # (Manual) POC ABG pH ABG pH POC ABG pCO2 POC ABG pO2 ABG pO2 ABG HCO3 ABG Base Excess ABG Hemoglobin Oxyhemoglobin Sodium 130 L D Potassium 5.1 H Chloride 90.0 L 91.0 L Carbon Dioxide 20 L 20 L BUN 27 H 35 H Creatinine 1.9 H 2.0 H Glucose 104 H POC Glucose Calcium Phosphorus Magnesium Direct Bilirubin AST Alkaline Phosphatase C-Reactive Protein Serum Total Protein Total Protein Albumin Prealbumin Ufpkq-8-Pymsnfaua Ktarw-2-Zdynkiysq Gamma Globulins PEP Interpretation Triglycerides Urine pH Urine Creatinine Urine Total Protein Digoxin Crossmatch 10/10/19 10/10/19 10/11/19 08:33 08:44 05:41 WBC 13.2 H RBC Hgb 11.3 L Hct 33.8 L MCHC RDW 15.3 H Plt Count 543 H Lymph % (Auto) Arthur % (Auto) Lymph # Arthur # Seg Neutrophils % Seg Neuts % (Manual) Lymphocytes % (Manual) Seg Neutrophils # Seg Neutrophils # Man Lymphocytes # (Manual) Monocytes # (Manual) POC ABG pH ABG pH POC ABG pCO2 POC ABG pO2 ABG pO2 ABG HCO3 ABG Base Excess ABG Hemoglobin Oxyhemoglobin Sodium Potassium Chloride Carbon Dioxide BUN Creatinine Glucose 113 H POC Glucose 117 H Calcium Phosphorus Magnesium Direct Bilirubin AST Alkaline Phosphatase C-Reactive Protein Serum Total Protein Total Protein Albumin Prealbumin Zzpjx-0-Uzrnclvmf Zekoc-9-Bynlyqwsm Gamma Globulins PEP Interpretation Triglycerides Urine pH Urine Creatinine Urine Total Protein Digoxin Crossmatch 10/11/19 10/11/19 10/11/19 05:41 06:23 06:23 WBC RBC Hgb Hct MCHC RDW Plt Count Lymph % (Auto) Arthur % (Auto) Lymph # Arthur # Seg Neutrophils % Seg Neuts % (Manual) Lymphocytes % (Manual) Seg Neutrophils # Seg Neutrophils # Man Lymphocytes # (Manual) Monocytes # (Manual) POC ABG pH ABG pH POC ABG pCO2 POC ABG pO2 ABG pO2 ABG HCO3 ABG Base Excess ABG Hemoglobin Oxyhemoglobin Sodium 134 L Potassium Chloride 96.3 L Carbon Dioxide BUN 37 H Creatinine Glucose 58 L POC Glucose Calcium Phosphorus 4.90 H Magnesium Direct Bilirubin AST Alkaline Phosphatase C-Reactive Protein Serum Total Protein Total Protein Albumin Prealbumin Lshzr-4-Ouegqenmu Qssfb-2-Kxlsnkxhn Gamma Globulins PEP Interpretation Triglycerides Urine pH Urine Creatinine 118.2 H 116.8 H Urine Total Protein 105 H 104 H Digoxin Crossmatch 10/11/19 10/12/19 10/12/19 09:00 06:09 06:09 WBC 13.8 H RBC 3.39 L Hgb 10.2 L Hct 30.9 L MCHC RDW 15.5 H Plt Count 459 H Lymph % (Auto) Arthur % (Auto) Lymph # Arthur # Seg Neutrophils % Seg Neuts % (Manual) Lymphocytes % (Manual) Seg Neutrophils # Seg Neutrophils # Man Lymphocytes # (Manual) Monocytes # (Manual) POC ABG pH ABG pH POC ABG pCO2 POC ABG pO2 ABG pO2 ABG HCO3 ABG Base Excess ABG Hemoglobin Oxyhemoglobin Sodium 131 L Potassium Chloride 96.2 L Carbon Dioxide 21 L BUN 43 H Creatinine Glucose 72 L POC Glucose Calcium Phosphorus Magnesium Direct Bilirubin AST Alkaline Phosphatase C-Reactive Protein Serum Total Protein 5.2 L Total Protein Albumin 1.9 L Prealbumin Lcdbs-6-Shlbldsvp 0.9 H Wxjdc-6-Kmqazvxva 1.0 H Gamma Globulins 0.7 L PEP Interpretation see below H Triglycerides Urine pH Urine Creatinine Urine Total Protein Digoxin Crossmatch 10/12/19 10/12/19 10/12/19 08:20 09:30 09:30 WBC RBC Hgb Hct MCHC RDW Plt Count Lymph % (Auto) Arthur % (Auto) Lymph # Arthur # Seg Neutrophils % Seg Neuts % (Manual) Lymphocytes % (Manual) Seg Neutrophils # Seg Neutrophils # Man Lymphocytes # (Manual) Monocytes # (Manual) POC ABG pH ABG pH POC ABG pCO2 POC ABG pO2 63 L ABG pO2 ABG HCO3 ABG Base Excess ABG Hemoglobin Oxyhemoglobin Sodium Potassium Chloride Carbon Dioxide BUN Creatinine Glucose POC Glucose Calcium Phosphorus Magnesium 2.50 H Direct Bilirubin 0.3 H AST Alkaline Phosphatase C-Reactive Protein Serum Total Protein Total Protein 5.1 L Albumin 2.2 L Prealbumin Eaoid-5-Tegqfvfze Oopan-8-Qhmquxyfg Gamma Globulins PEP Interpretation Triglycerides Urine pH Urine Creatinine Urine Total Protein Digoxin Crossmatch 10/13/19 10/13/19 10/13/19 04:20 04:20 13:20 WBC 15.7 H RBC 3.64 L Hgb 10.9 L Hct 33.1 L MCHC RDW 15.8 H Plt Count 488 H Lymph % (Auto) Arthur % (Auto) Lymph # Arthur # Seg Neutrophils % Seg Neuts % (Manual) Lymphocytes % (Manual) Seg Neutrophils # Seg Neutrophils # Man Lymphocytes # (Manual) Monocytes # (Manual) POC ABG pH ABG pH POC ABG pCO2 POC ABG pO2 ABG pO2 ABG HCO3 ABG Base Excess ABG Hemoglobin Oxyhemoglobin Sodium Potassium Chloride Carbon Dioxide BUN 28 H Creatinine Glucose POC Glucose Calcium Phosphorus Magnesium Direct Bilirubin AST Alkaline Phosphatase C-Reactive Protein Serum Total Protein Total Protein Albumin Prealbumin Vuedt-2-Mkpsmttgt Qzaqg-0-Dutfzudfz Gamma Globulins PEP Interpretation Triglycerides Urine pH Urine Creatinine Urine Total Protein Digoxin Crossmatch See Detail 10/13/19 10/13/19 10/14/19 18:24 20:05 04:47 WBC 24.2 H RBC Hgb 10.9 L Hct 34.2 L MCHC RDW 17.0 H Plt Count 442 H Lymph % (Auto) Arthur % (Auto) Lymph # Arthur # Seg Neutrophils % Seg Neuts % (Manual) Lymphocytes % (Manual) Seg Neutrophils # Seg Neutrophils # Man Lymphocytes # (Manual) Monocytes # (Manual) POC ABG pH ABG pH 7.180 L* 7.278 L POC ABG pCO2 POC ABG pO2 ABG pO2 130.7 H ABG HCO3 ABG Base Excess -6.5 L -6.5 L ABG Hemoglobin 12.2 L 12.3 L Oxyhemoglobin 92.9 L Sodium Potassium Chloride Carbon Dioxide BUN Creatinine Glucose POC Glucose Calcium Phosphorus Magnesium Direct Bilirubin AST Alkaline Phosphatase C-Reactive Protein Serum Total Protein Total Protein Albumin Prealbumin Klxaz-8-Scsbgomdy Tvohk-5-Mvgayznyz Gamma Globulins PEP Interpretation Triglycerides Urine pH Urine Creatinine Urine Total Protein Digoxin Crossmatch 10/14/19 10/14/19 10/14/19 04:47 05:40 10:14 WBC RBC Hgb Hct MCHC RDW Plt Count Lymph % (Auto) Arthur % (Auto) Lymph # Arthur # Seg Neutrophils % Seg Neuts % (Manual) Lymphocytes % (Manual) Seg Neutrophils # Seg Neutrophils # Man Lymphocytes # (Manual) Monocytes # (Manual) POC ABG pH ABG pH POC ABG pCO2 POC ABG pO2 ABG pO2 76.3 L ABG HCO3 19.1 L ABG Base Excess -5.8 L ABG Hemoglobin 10.9 L Oxyhemoglobin 93.4 L Sodium Potassium 5.1 H D Chloride 109.2 H Carbon Dioxide 17 L BUN 38 H Creatinine 1.8 H D Glucose 104 H POC Glucose Calcium 7.4 L Phosphorus 5.60 H Magnesium Direct Bilirubin AST Alkaline Phosphatase C-Reactive Protein Serum Total Protein Total Protein Albumin Prealbumin Wqyaq-3-Geiefpwrf Iledu-4-Uxvmoyzqw Gamma Globulins PEP Interpretation Triglycerides Urine pH Urine Creatinine Urine Total Protein Digoxin Crossmatch 10/14/19 10/15/19 10/15/19 23:46 04:32 04:32 WBC 15.5 H RBC 2.89 L Hgb 8.8 L Hct 27.3 L D MCHC RDW 16.6 H Plt Count Lymph % (Auto) Arthur % (Auto) Lymph # Arthur # Seg Neutrophils % Seg Neuts % (Manual) Lymphocytes % (Manual) Seg Neutrophils # Seg Neutrophils # Man Lymphocytes # (Manual) Monocytes # (Manual) POC ABG pH ABG pH POC ABG pCO2 POC ABG pO2 ABG pO2 ABG HCO3 ABG Base Excess ABG Hemoglobin Oxyhemoglobin Sodium 147 H Potassium Chloride 114.0 H Carbon Dioxide 19 L BUN 42 H Creatinine Glucose 112 H POC Glucose 113 H Calcium 7.3 L Phosphorus Magnesium Direct Bilirubin AST 72 H Alkaline Phosphatase C-Reactive Protein 30.60 H Serum Total Protein Total Protein 4.0 L D Albumin 1.7 L Prealbumin 0.030 L Nbwdn-0-Ipveocdjo Ccaqt-9-Pyrdijzwz Gamma Globulins PEP Interpretation Triglycerides Urine pH Urine Creatinine Urine Total Protein Digoxin Crossmatch 10/15/19 10/15/19 10/15/19 05:30 12:08 17:23 WBC RBC Hgb Hct MCHC RDW Plt Count Lymph % (Auto) Arthur % (Auto) Lymph # Arthur # Seg Neutrophils % Seg Neuts % (Manual) Lymphocytes % (Manual) Seg Neutrophils # Seg Neutrophils # Man Lymphocytes # (Manual) Monocytes # (Manual) POC ABG pH ABG pH 7.296 L POC ABG pCO2 POC ABG pO2 ABG pO2 114.7 H ABG HCO3 ABG Base Excess -3.7 L ABG Hemoglobin 8.9 L Oxyhemoglobin Sodium Potassium Chloride Carbon Dioxide BUN Creatinine Glucose POC Glucose 106 H 106 H Calcium Phosphorus Magnesium Direct Bilirubin AST Alkaline Phosphatase C-Reactive Protein Serum Total Protein Total Protein Albumin Prealbumin Sficd-9-Zltdarlnt Iijny-2-Iwxaweqoa Gamma Globulins PEP Interpretation Triglycerides Urine pH Urine Creatinine Urine Total Protein Digoxin Crossmatch 10/16/19 10/16/19 10/16/19 00:07 04:44 05:24 WBC RBC Hgb Hct MCHC RDW Plt Count Lymph % (Auto) Arthur % (Auto) Lymph # Arthur # Seg Neutrophils % Seg Neuts % (Manual) Lymphocytes % (Manual) Seg Neutrophils # Seg Neutrophils # Man Lymphocytes # (Manual) Monocytes # (Manual) POC ABG pH ABG pH POC ABG pCO2 POC ABG pO2 ABG pO2 ABG HCO3 ABG Base Excess ABG Hemoglobin Oxyhemoglobin Sodium 150 H Potassium Chloride 115.8 H Carbon Dioxide BUN 35 H Creatinine Glucose 129 H POC Glucose 119 H 129 H Calcium 7.3 L Phosphorus 1.80 L D Magnesium Direct Bilirubin AST Alkaline Phosphatase C-Reactive Protein Serum Total Protein Total Protein Albumin Prealbumin Etwny-9-Gpxwtghlt Itgal-5-Sidiyijbw Gamma Globulins PEP Interpretation Triglycerides Urine pH Urine Creatinine Urine Total Protein Digoxin Crossmatch 10/16/19 10/16/19 10/16/19 06:53 09:20 11:58 WBC 14.6 H RBC 2.70 L Hgb 8.1 L Hct 25.2 L MCHC RDW 16.7 H Plt Count Lymph % (Auto) Arthur % (Auto) Lymph # Arthur # Seg Neutrophils % Seg Neuts % (Manual) 79.0 H Lymphocytes % (Manual) 4.0 L Seg Neutrophils # Seg Neutrophils # Man 11.5 H Lymphocytes # (Manual) 0.6 L Monocytes # (Manual) POC ABG pH ABG pH POC ABG pCO2 47.0 H POC ABG pO2 ABG pO2 ABG HCO3 ABG Base Excess ABG Hemoglobin Oxyhemoglobin Sodium Potassium Chloride Carbon Dioxide BUN Creatinine Glucose POC Glucose Calcium Phosphorus Magnesium Direct Bilirubin AST Alkaline Phosphatase C-Reactive Protein Serum Total Protein Total Protein Albumin Prealbumin Eyfvj-1-Ydovmvwlu Lvfuv-7-Qjasticml Gamma Globulins PEP Interpretation Triglycerides Urine pH Urine Creatinine Urine Total Protein Digoxin Crossmatch See Detail 10/16/19 10/16/19 10/16/19 15:23 17:50 23:58 WBC RBC Hgb Hct MCHC RDW Plt Count Lymph % (Auto) Arthur % (Auto) Lymph # Arthur # Seg Neutrophils % Seg Neuts % (Manual) Lymphocytes % (Manual) Seg Neutrophils # Seg Neutrophils # Man Lymphocytes # (Manual) Monocytes # (Manual) POC ABG pH ABG pH POC ABG pCO2 POC ABG pO2 ABG pO2 ABG HCO3 ABG Base Excess ABG Hemoglobin Oxyhemoglobin Sodium Potassium Chloride Carbon Dioxide BUN Creatinine Glucose POC Glucose 221 H 201 H 179 H Calcium Phosphorus Magnesium Direct Bilirubin AST Alkaline Phosphatase C-Reactive Protein Serum Total Protein Total Protein Albumin Prealbumin Kbklq-9-Yvbwxoanx Nudmz-1-Gyyffmsft Gamma Globulins PEP Interpretation Triglycerides Urine pH Urine Creatinine Urine Total Protein Digoxin Crossmatch 10/17/19 10/17/19 10/17/19 04:08 04:08 05:41 WBC 22.3 H RBC 3.35 L Hgb 10.0 L Hct 31.2 L D MCHC RDW 16.1 H Plt Count Lymph % (Auto) Arthur % (Auto) Lymph # Arthur # Seg Neutrophils % Seg Neuts % (Manual) Lymphocytes % (Manual) Seg Neutrophils # Seg Neutrophils # Man Lymphocytes # (Manual) Monocytes # (Manual) POC ABG pH 7.310 L ABG pH POC ABG pCO2 52.8 H POC ABG pO2 70 L ABG pO2 ABG HCO3 ABG Base Excess ABG Hemoglobin Oxyhemoglobin Sodium 147 H Potassium Chloride 114.9 H Carbon Dioxide BUN 36 H Creatinine Glucose 165 H POC Glucose Calcium 6.9 L Phosphorus 2.20 L D Magnesium Direct Bilirubin AST Alkaline Phosphatase C-Reactive Protein Serum Total Protein Total Protein Albumin Prealbumin Pifak-4-Mrakjegrw Gnbar-6-Diwkjlnkr Gamma Globulins PEP Interpretation Triglycerides Urine pH Urine Creatinine Urine Total Protein Digoxin Crossmatch 10/17/19 10/17/19 10/17/19 05:42 11:33 18:17 WBC RBC Hgb Hct MCHC RDW Plt Count Lymph % (Auto) Arthur % (Auto) Lymph # Arthur # Seg Neutrophils % Seg Neuts % (Manual) Lymphocytes % (Manual) Seg Neutrophils # Seg Neutrophils # Man Lymphocytes # (Manual) Monocytes # (Manual) POC ABG pH ABG pH POC ABG pCO2 POC ABG pO2 ABG pO2 ABG HCO3 ABG Base Excess ABG Hemoglobin Oxyhemoglobin Sodium Potassium Chloride Carbon Dioxide BUN Creatinine Glucose POC Glucose 149 H 154 H 163 H Calcium Phosphorus Magnesium Direct Bilirubin AST Alkaline Phosphatase C-Reactive Protein Serum Total Protein Total Protein Albumin Prealbumin Exgee-1-Nbaxpixbt Uhpka-8-Jftpbvgcm Gamma Globulins PEP Interpretation Triglycerides Urine pH Urine Creatinine Urine Total Protein Digoxin Crossmatch 10/17/19 10/18/19 10/18/19 23:34 03:29 04:50 WBC RBC Hgb Hct MCHC RDW Plt Count Lymph % (Auto) Arthur % (Auto) Lymph # Arthur # Seg Neutrophils % Seg Neuts % (Manual) Lymphocytes % (Manual) Seg Neutrophils # Seg Neutrophils # Man Lymphocytes # (Manual) Monocytes # (Manual) POC ABG pH ABG pH POC ABG pCO2 POC ABG pO2 ABG pO2 78.8 L ABG HCO3 ABG Base Excess ABG Hemoglobin 8.8 L Oxyhemoglobin Sodium Potassium Chloride 111.8 H Carbon Dioxide BUN 27 H Creatinine 0.6 L Glucose 140 H POC Glucose 135 H Calcium 7.1 L Phosphorus 1.80 L Magnesium Direct Bilirubin AST Alkaline Phosphatase C-Reactive Protein Serum Total Protein Total Protein Albumin Prealbumin Lsiuh-0-Fcxibimau Ewbgk-8-Mcmqejnam Gamma Globulins PEP Interpretation Triglycerides Urine pH Urine Creatinine Urine Total Protein Digoxin Crossmatch 10/18/19 10/18/19 10/18/19 05:45 11:19 18:26 WBC RBC Hgb Hct MCHC RDW Plt Count Lymph % (Auto) Arthur % (Auto) Lymph # Arthur # Seg Neutrophils % Seg Neuts % (Manual) Lymphocytes % (Manual) Seg Neutrophils # Seg Neutrophils # Man Lymphocytes # (Manual) Monocytes # (Manual) POC ABG pH ABG pH POC ABG pCO2 POC ABG pO2 ABG pO2 ABG HCO3 ABG Base Excess ABG Hemoglobin Oxyhemoglobin Sodium Potassium Chloride Carbon Dioxide BUN Creatinine Glucose POC Glucose 145 H 152 H 125 H Calcium Phosphorus Magnesium Direct Bilirubin AST Alkaline Phosphatase C-Reactive Protein Serum Total Protein Total Protein Albumin Prealbumin Iketb-9-Vbldnzyri Ucaza-6-Nispkkswx Gamma Globulins PEP Interpretation Triglycerides Urine pH Urine Creatinine Urine Total Protein Digoxin Crossmatch 10/18/19 10/19/19 10/19/19 23:27 04:21 04:21 WBC RBC Hgb Hct MCHC RDW Plt Count Lymph % (Auto) Arthur % (Auto) Lymph # Arthur # Seg Neutrophils % Seg Neuts % (Manual) Lymphocytes % (Manual) Seg Neutrophils # Seg Neutrophils # Man Lymphocytes # (Manual) Monocytes # (Manual) POC ABG pH ABG pH POC ABG pCO2 POC ABG pO2 ABG pO2 ABG HCO3 ABG Base Excess ABG Hemoglobin Oxyhemoglobin Sodium Potassium Chloride 108.4 H Carbon Dioxide BUN 22 H Creatinine 0.5 L Glucose 123 H POC Glucose 127 H Calcium 7.4 L Phosphorus 1.80 L Magnesium Direct Bilirubin AST Alkaline Phosphatase C-Reactive Protein Serum Total Protein Total Protein Albumin Prealbumin Asurv-7-Ptecojsgr Cnbwc-1-Ajmuomfes Gamma Globulins PEP Interpretation Triglycerides Urine pH Urine Creatinine Urine Total Protein Digoxin 0.7 L Crossmatch 10/19/19 10/19/19 10/19/19 05:00 05:35 11:26 WBC RBC Hgb Hct MCHC RDW Plt Count Lymph % (Auto) Arthur % (Auto) Lymph # Arthur # Seg Neutrophils % Seg Neuts % (Manual) Lymphocytes % (Manual) Seg Neutrophils # Seg Neutrophils # Man Lymphocytes # (Manual) Monocytes # (Manual) POC ABG pH ABG pH 7.456 H POC ABG pCO2 POC ABG pO2 ABG pO2 78.8 L ABG HCO3 ABG Base Excess ABG Hemoglobin 5.6 L Oxyhemoglobin Sodium Potassium Chloride Carbon Dioxide BUN Creatinine Glucose POC Glucose 124 H 111 H Calcium Phosphorus Magnesium Direct Bilirubin AST Alkaline Phosphatase C-Reactive Protein Serum Total Protein Total Protein Albumin Prealbumin Oopbv-6-Skhekhezb Ibvvs-4-Dbjfdkoid Gamma Globulins PEP Interpretation Triglycerides Urine pH Urine Creatinine Urine Total Protein Digoxin Crossmatch 10/19/19 10/20/19 10/20/19 23:23 04:50 05:17 WBC RBC Hgb Hct MCHC RDW Plt Count Lymph % (Auto) Arthur % (Auto) Lymph # Arthur # Seg Neutrophils % Seg Neuts % (Manual) Lymphocytes % (Manual) Seg Neutrophils # Seg Neutrophils # Man Lymphocytes # (Manual) Monocytes # (Manual) POC ABG pH ABG pH POC ABG pCO2 POC ABG pO2 ABG pO2 ABG HCO3 ABG Base Excess ABG Hemoglobin Oxyhemoglobin Sodium Potassium Chloride 108.1 H Carbon Dioxide BUN Creatinine 0.4 L Glucose 134 H POC Glucose 129 H 123 H Calcium 7.1 L Phosphorus Magnesium Direct Bilirubin AST Alkaline Phosphatase C-Reactive Protein Serum Total Protein Total Protein Albumin Prealbumin Rredu-0-Cyxotycsa Zkuuc-6-Ylowadfxt Gamma Globulins PEP Interpretation Triglycerides Urine pH Urine Creatinine Urine Total Protein Digoxin Crossmatch 10/20/19 10/20/19 10/21/19 11:40 19:06 05:08 WBC RBC Hgb Hct MCHC RDW Plt Count Lymph % (Auto) Arthur % (Auto) Lymph # Arthur # Seg Neutrophils % Seg Neuts % (Manual) Lymphocytes % (Manual) Seg Neutrophils # Seg Neutrophils # Man Lymphocytes # (Manual) Monocytes # (Manual) POC ABG pH ABG pH POC ABG pCO2 POC ABG pO2 ABG pO2 ABG HCO3 ABG Base Excess ABG Hemoglobin Oxyhemoglobin Sodium Potassium Chloride Carbon Dioxide BUN Creatinine Glucose POC Glucose 139 H 117 H 131 H Calcium Phosphorus Magnesium Direct Bilirubin AST Alkaline Phosphatase C-Reactive Protein Serum Total Protein Total Protein Albumin Prealbumin Qgsxv-7-Lzlvpayrk Wrbeh-2-Grqcnjixv Gamma Globulins PEP Interpretation Triglycerides Urine pH Urine Creatinine Urine Total Protein Digoxin Crossmatch 10/21/19 10/21/19 10/21/19 05:30 12:04 17:31 WBC RBC Hgb Hct MCHC RDW Plt Count Lymph % (Auto) Arthur % (Auto) Lymph # Arthur # Seg Neutrophils % Seg Neuts % (Manual) Lymphocytes % (Manual) Seg Neutrophils # Seg Neutrophils # Man Lymphocytes # (Manual) Monocytes # (Manual) POC ABG pH ABG pH POC ABG pCO2 POC ABG pO2 ABG pO2 ABG HCO3 ABG Base Excess ABG Hemoglobin Oxyhemoglobin Sodium Potassium Chloride 107.8 H Carbon Dioxide BUN Creatinine 0.5 L Glucose 119 H POC Glucose 119 H 110 H Calcium 7.6 L Phosphorus Magnesium Direct Bilirubin AST Alkaline Phosphatase C-Reactive Protein Serum Total Protein Total Protein Albumin Prealbumin Lenct-3-Eylewsfuv Rmony-2-Iqwfwlaja Gamma Globulins PEP Interpretation Triglycerides Urine pH Urine Creatinine Urine Total Protein Digoxin Crossmatch 10/22/19 10/22/19 10/22/19 05:14 05:37 12:07 WBC RBC Hgb Hct MCHC RDW Plt Count Lymph % (Auto) Arthur % (Auto) Lymph # Arthur # Seg Neutrophils % Seg Neuts % (Manual) Lymphocytes % (Manual) Seg Neutrophils # Seg Neutrophils # Man Lymphocytes # (Manual) Monocytes # (Manual) POC ABG pH ABG pH POC ABG pCO2 POC ABG pO2 ABG pO2 ABG HCO3 ABG Base Excess ABG Hemoglobin Oxyhemoglobin Sodium Potassium Chloride Carbon Dioxide BUN Creatinine 0.5 L Glucose 116 H POC Glucose 110 H 126 H Calcium 7.7 L Phosphorus Magnesium Direct Bilirubin AST Alkaline Phosphatase C-Reactive Protein Serum Total Protein Total Protein Albumin Prealbumin Ffxzr-6-Nnoxpziuq Iujdr-5-Rpguulqzn Gamma Globulins PEP Interpretation Triglycerides Urine pH Urine Creatinine Urine Total Protein Digoxin Crossmatch 10/22/19 10/22/19 10/23/19 18:36 23:19 04:39 WBC RBC Hgb Hct MCHC RDW Plt Count Lymph % (Auto) Arthur % (Auto) Lymph # Arthur # Seg Neutrophils % Seg Neuts % (Manual) Lymphocytes % (Manual) Seg Neutrophils # Seg Neutrophils # Man Lymphocytes # (Manual) Monocytes # (Manual) POC ABG pH ABG pH POC ABG pCO2 POC ABG pO2 ABG pO2 ABG HCO3 ABG Base Excess ABG Hemoglobin Oxyhemoglobin Sodium Potassium Chloride Carbon Dioxide BUN Creatinine Glucose POC Glucose 120 H 127 H 112 H Calcium Phosphorus Magnesium Direct Bilirubin AST Alkaline Phosphatase C-Reactive Protein Serum Total Protein Total Protein Albumin Prealbumin Pwkap-1-Thysvkgvs Lqakt-7-Pdyfandtc Gamma Globulins PEP Interpretation Triglycerides Urine pH Urine Creatinine Urine Total Protein Digoxin Crossmatch 10/23/19 10/23/19 10/23/19 04:47 05:15 10:44 WBC 18.3 H RBC 2.33 L Hgb 7.0 L Hct 21.5 L MCHC RDW 16.2 H Plt Count Lymph % (Auto) 4.9 L Arthur % (Auto) 8.1 H Lymph # 0.9 L Arthur # 1.5 H Seg Neutrophils % 86.7 H Seg Neuts % (Manual) Lymphocytes % (Manual) Seg Neutrophils # 15.9 H Seg Neutrophils # Man Lymphocytes # (Manual) Monocytes # (Manual) POC ABG pH ABG pH POC ABG pCO2 POC ABG pO2 ABG pO2 68.9 L ABG HCO3 28.7 H ABG Base Excess 3.4 H ABG Hemoglobin 6.6 L Oxyhemoglobin 94.1 L Sodium Potassium Chloride Carbon Dioxide BUN Creatinine 0.5 L Glucose 165 H POC Glucose Calcium 7.4 L Phosphorus Magnesium Direct Bilirubin AST Alkaline Phosphatase C-Reactive Protein Serum Total Protein Total Protein Albumin Prealbumin Eoaws-5-Gfuojibkc Dwobt-6-Zsvbyisgp Gamma Globulins PEP Interpretation Triglycerides Urine pH Urine Creatinine Urine Total Protein Digoxin Crossmatch 10/23/19 10/23/19 10/23/19 10:44 11:46 11:50 WBC RBC Hgb Hct MCHC RDW Plt Count Lymph % (Auto) Arthur % (Auto) Lymph # Arthur # Seg Neutrophils % Seg Neuts % (Manual) Lymphocytes % (Manual) Seg Neutrophils # Seg Neutrophils # Man Lymphocytes # (Manual) Monocytes # (Manual) POC ABG pH ABG pH POC ABG pCO2 POC ABG pO2 ABG pO2 ABG HCO3 ABG Base Excess ABG Hemoglobin Oxyhemoglobin Sodium Potassium Chloride Carbon Dioxide BUN Creatinine Glucose POC Glucose 138 H Calcium Phosphorus Magnesium Direct Bilirubin 0.7 H AST Alkaline Phosphatase C-Reactive Protein Serum Total Protein Total Protein 4.5 L Albumin 1.2 L Prealbumin Egwun-4-Ynyfwwbvw Rneql-9-Jlzlmxnrj Gamma Globulins PEP Interpretation Triglycerides Urine pH Urine Creatinine Urine Total Protein Digoxin Crossmatch See Detail 10/23/19 10/24/19 10/24/19 17:53 00:07 05:05 WBC RBC Hgb Hct MCHC RDW Plt Count Lymph % (Auto) Arthur % (Auto) Lymph # Arthur # Seg Neutrophils % Seg Neuts % (Manual) Lymphocytes % (Manual) Seg Neutrophils # Seg Neutrophils # Man Lymphocytes # (Manual) Monocytes # (Manual) POC ABG pH ABG pH POC ABG pCO2 POC ABG pO2 ABG pO2 ABG HCO3 ABG Base Excess ABG Hemoglobin Oxyhemoglobin Sodium Potassium 3.5 L Chloride Carbon Dioxide BUN Creatinine 0.5 L Glucose 116 H POC Glucose 137 H 110 H Calcium 8.0 L Phosphorus Magnesium Direct Bilirubin AST Alkaline Phosphatase C-Reactive Protein Serum Total Protein Total Protein Albumin Prealbumin Zwxxr-5-Zmaqycndx Ndtuv-0-Bgvjakhlz Gamma Globulins PEP Interpretation Triglycerides Urine pH Urine Creatinine Urine Total Protein Digoxin Crossmatch 10/24/19 10/24/19 10/24/19 05:05 11:56 13:00 WBC 13.0 H RBC 2.73 L Hgb 8.0 L Hct 24.2 L MCHC RDW 17.9 H Plt Count Lymph % (Auto) 7.0 L Arthur % (Auto) 9.5 H Lymph # 0.9 L Arthur # 1.2 H Seg Neutrophils % 82.7 H Seg Neuts % (Manual) Lymphocytes % (Manual) Seg Neutrophils # 10.7 H Seg Neutrophils # Man Lymphocytes # (Manual) Monocytes # (Manual) POC ABG pH ABG pH POC ABG pCO2 POC ABG pO2 ABG pO2 ABG HCO3 ABG Base Excess ABG Hemoglobin Oxyhemoglobin Sodium Potassium Chloride Carbon Dioxide BUN Creatinine Glucose POC Glucose 159 H Calcium Phosphorus Magnesium Direct Bilirubin AST Alkaline Phosphatase C-Reactive Protein Serum Total Protein Total Protein Albumin Prealbumin Pruks-5-Jnhtsnqvs Fchgx-2-Qzancfzjg Gamma Globulins PEP Interpretation Triglycerides 216 H Urine pH Urine Creatinine Urine Total Protein Digoxin Crossmatch 10/24/19 10/24/19 10/25/19 17:42 23:45 04:19 WBC RBC Hgb Hct MCHC RDW Plt Count Lymph % (Auto) Arthur % (Auto) Lymph # Arthur # Seg Neutrophils % Seg Neuts % (Manual) Lymphocytes % (Manual) Seg Neutrophils # Seg Neutrophils # Man Lymphocytes # (Manual) Monocytes # (Manual) POC ABG pH ABG pH POC ABG pCO2 POC ABG pO2 ABG pO2 ABG HCO3 ABG Base Excess ABG Hemoglobin Oxyhemoglobin Sodium 147 H Potassium Chloride Carbon Dioxide 33 H BUN Creatinine 0.5 L Glucose 111 H POC Glucose 120 H 116 H Calcium Phosphorus Magnesium Direct Bilirubin AST Alkaline Phosphatase C-Reactive Protein Serum Total Protein Total Protein 5.7 L D Albumin 2.5 L Prealbumin Lfegm-0-Wohlkymot Hqbeb-4-Llxvycpsp Gamma Globulins PEP Interpretation Triglycerides 230 H Urine pH Urine Creatinine Urine Total Protein Digoxin Crossmatch 10/25/19 10/25/19 10/25/19 04:19 05:31 12:20 WBC RBC 2.69 L Hgb 8.1 L Hct 23.9 L MCHC RDW 17.3 H Plt Count Lymph % (Auto) Arthur % (Auto) Lymph # Arthur # Seg Neutrophils % Seg Neuts % (Manual) Lymphocytes % (Manual) Seg Neutrophils # Seg Neutrophils # Man Lymphocytes # (Manual) Monocytes # (Manual) POC ABG pH ABG pH POC ABG pCO2 POC ABG pO2 ABG pO2 ABG HCO3 ABG Base Excess ABG Hemoglobin Oxyhemoglobin Sodium Potassium Chloride Carbon Dioxide BUN Creatinine Glucose POC Glucose 126 H 114 H Calcium Phosphorus Magnesium Direct Bilirubin AST Alkaline Phosphatase C-Reactive Protein Serum Total Protein Total Protein Albumin Prealbumin Iemnq-4-Ikauasnod Bwaoe-7-Jeerqyowe Gamma Globulins PEP Interpretation Triglycerides Urine pH Urine Creatinine Urine Total Protein Digoxin Crossmatch 10/25/19 10/25/19 10/26/19 18:30 23:09 06:15 WBC RBC Hgb Hct MCHC RDW Plt Count Lymph % (Auto) Arthur % (Auto) Lymph # Arthur # Seg Neutrophils % Seg Neuts % (Manual) Lymphocytes % (Manual) Seg Neutrophils # Seg Neutrophils # Man Lymphocytes # (Manual) Monocytes # (Manual) POC ABG pH ABG pH POC ABG pCO2 POC ABG pO2 ABG pO2 ABG HCO3 ABG Base Excess ABG Hemoglobin Oxyhemoglobin Sodium Potassium 3.5 L Chloride Carbon Dioxide BUN Creatinine 0.5 L Glucose 112 H POC Glucose 121 H 107 H Calcium 8.3 L Phosphorus Magnesium Direct Bilirubin AST Alkaline Phosphatase 148 H C-Reactive Protein Serum Total Protein Total Protein 5.9 L Albumin 2.4 L Prealbumin Ncvqw-2-Rokrnfyze Zbbqt-1-Bqbcogajn Gamma Globulins PEP Interpretation Triglycerides Urine pH Urine Creatinine Urine Total Protein Digoxin Crossmatch 10/26/19 10/26/19 10/26/19 06:15 12:21 17:35 WBC RBC Hgb Hct MCHC RDW Plt Count Lymph % (Auto) Arthur % (Auto) Lymph # Arthur # Seg Neutrophils % Seg Neuts % (Manual) Lymphocytes % (Manual) Seg Neutrophils # Seg Neutrophils # Man Lymphocytes # (Manual) Monocytes # (Manual) POC ABG pH ABG pH POC ABG pCO2 POC ABG pO2 ABG pO2 ABG HCO3 ABG Base Excess ABG Hemoglobin Oxyhemoglobin Sodium Potassium Chloride Carbon Dioxide BUN Creatinine Glucose POC Glucose 134 H 141 H Calcium Phosphorus Magnesium Direct Bilirubin AST Alkaline Phosphatase C-Reactive Protein Serum Total Protein Total Protein Albumin Prealbumin Ousfz-0-Fibkpwhqg Scwid-4-Floindgjx Gamma Globulins PEP Interpretation Triglycerides 185 H Urine pH Urine Creatinine Urine Total Protein Digoxin Crossmatch 10/26/19 10/27/19 10/27/19 Unknown 04:30 11:33 WBC RBC Hgb Hct MCHC RDW Plt Count Lymph % (Auto) Arthur % (Auto) Lymph # Arthur # Seg Neutrophils % Seg Neuts % (Manual) Lymphocytes % (Manual) Seg Neutrophils # Seg Neutrophils # Man Lymphocytes # (Manual) Monocytes # (Manual) POC ABG pH ABG pH POC ABG pCO2 POC ABG pO2 ABG pO2 ABG HCO3 ABG Base Excess ABG Hemoglobin Oxyhemoglobin Sodium Potassium 3.2 L Chloride Carbon Dioxide BUN 23 H Creatinine 0.6 L Glucose 130 H POC Glucose 131 H Calcium 7.9 L Phosphorus Magnesium Direct Bilirubin AST Alkaline Phosphatase C-Reactive Protein Serum Total Protein Total Protein Albumin Prealbumin Pssft-7-Dhhnmctbj Doihn-6-Pijnifqmw Gamma Globulins PEP Interpretation Triglycerides Urine pH 9.0 H Urine Creatinine Urine Total Protein Digoxin Crossmatch 10/27/19 10/28/19 10/28/19 17:45 05:25 05:49 WBC RBC 2.85 L Hgb 8.3 L Hct 26.8 L MCHC 31 L RDW 17.4 H Plt Count Lymph % (Auto) 8.9 L Arthur % (Auto) 14.3 H Lymph # 0.8 L Arthur # 1.3 H Seg Neutrophils % 76.5 H Seg Neuts % (Manual) Lymphocytes % (Manual) Seg Neutrophils # Seg Neutrophils # Man Lymphocytes # (Manual) Monocytes # (Manual) POC ABG pH ABG pH POC ABG pCO2 POC ABG pO2 ABG pO2 ABG HCO3 ABG Base Excess ABG Hemoglobin Oxyhemoglobin Sodium Potassium Chloride Carbon Dioxide BUN Creatinine Glucose POC Glucose 121 H 120 H Calcium Phosphorus Magnesium Direct Bilirubin AST Alkaline Phosphatase C-Reactive Protein Serum Total Protein Total Protein Albumin Prealbumin Eohqe-1-Kcyjfkwsc Uufqf-1-Bawrokkcf Gamma Globulins PEP Interpretation Triglycerides Urine pH Urine Creatinine Urine Total Protein Digoxin Crossmatch 10/28/19 10/28/19 10/28/19 07:19 12:07 18:21 WBC RBC Hgb Hct MCHC RDW Plt Count Lymph % (Auto) Arthur % (Auto) Lymph # Arthur # Seg Neutrophils % Seg Neuts % (Manual) Lymphocytes % (Manual) Seg Neutrophils # Seg Neutrophils # Man Lymphocytes # (Manual) Monocytes # (Manual) POC ABG pH ABG pH POC ABG pCO2 POC ABG pO2 ABG pO2 ABG HCO3 ABG Base Excess ABG Hemoglobin Oxyhemoglobin Sodium Potassium Chloride Carbon Dioxide BUN 23 H Creatinine 0.5 L Glucose 129 H POC Glucose 127 H 130 H Calcium 8.0 L Phosphorus Magnesium Direct Bilirubin AST Alkaline Phosphatase C-Reactive Protein Serum Total Protein Total Protein Albumin Prealbumin Vqegg-1-Ljuayeexa Vyruy-8-Kywbdaave Gamma Globulins PEP Interpretation Triglycerides Urine pH Urine Creatinine Urine Total Protein Digoxin Crossmatch 10/28/19 10/29/19 10/29/19 23:30 05:30 05:30 WBC 11.2 H RBC 3.36 L Hgb 9.7 L Hct 29.4 L MCHC RDW 16.7 H Plt Count Lymph % (Auto) Arthur % (Auto) 16.0 H Lymph # Arthur # 1.8 H Seg Neutrophils % 70.2 H Seg Neuts % (Manual) Lymphocytes % (Manual) Seg Neutrophils # 7.9 H Seg Neutrophils # Man Lymphocytes # (Manual) Monocytes # (Manual) POC ABG pH ABG pH POC ABG pCO2 POC ABG pO2 ABG pO2 ABG HCO3 ABG Base Excess ABG Hemoglobin Oxyhemoglobin Sodium Potassium Chloride Carbon Dioxide BUN 23 H Creatinine 0.5 L Glucose POC Glucose 130 H Calcium 8.3 L Phosphorus Magnesium Direct Bilirubin AST Alkaline Phosphatase C-Reactive Protein Serum Total Protein Total Protein Albumin Prealbumin Wczpn-5-Nuerrhxhr Gpjkx-1-Vvkczvezw Gamma Globulins PEP Interpretation Triglycerides Urine pH Urine Creatinine Urine Total Protein Digoxin Crossmatch 10/29/19 10/29/19 10/29/19 05:52 13:10 18:02 WBC RBC Hgb Hct MCHC RDW Plt Count Lymph % (Auto) Arthur % (Auto) Lymph # Arthur # Seg Neutrophils % Seg Neuts % (Manual) Lymphocytes % (Manual) Seg Neutrophils # Seg Neutrophils # Man Lymphocytes # (Manual) Monocytes # (Manual) POC ABG pH ABG pH POC ABG pCO2 POC ABG pO2 ABG pO2 ABG HCO3 ABG Base Excess ABG Hemoglobin Oxyhemoglobin Sodium Potassium Chloride Carbon Dioxide BUN Creatinine Glucose POC Glucose 111 H 140 H 140 H Calcium Phosphorus Magnesium Direct Bilirubin AST Alkaline Phosphatase C-Reactive Protein Serum Total Protein Total Protein Albumin Prealbumin Smcxz-8-Qydfwudrw Rdich-3-Dlewdednl Gamma Globulins PEP Interpretation Triglycerides Urine pH Urine Creatinine Urine Total Protein Digoxin Crossmatch 10/29/19 10/30/19 10/30/19 23:58 01:05 05:15 WBC RBC Hgb Hct MCHC RDW Plt Count Lymph % (Auto) Arthur % (Auto) Lymph # Arthur # Seg Neutrophils % Seg Neuts % (Manual) Lymphocytes % (Manual) Seg Neutrophils # Seg Neutrophils # Man Lymphocytes # (Manual) Monocytes # (Manual) POC ABG pH ABG pH POC ABG pCO2 62.0 H POC ABG pO2 168 H ABG pO2 ABG HCO3 ABG Base Excess ABG Hemoglobin Oxyhemoglobin Sodium 147 H Potassium Chloride 107.8 H Carbon Dioxide BUN 26 H Creatinine 0.5 L Glucose 139 H POC Glucose 161 H Calcium Phosphorus Magnesium 2.40 H Direct Bilirubin AST Alkaline Phosphatase C-Reactive Protein Serum Total Protein Total Protein Albumin Prealbumin Bjuia-5-Ihsvqlgjo Fuvjr-8-Gwmougeev Gamma Globulins PEP Interpretation Triglycerides Urine pH Urine Creatinine Urine Total Protein Digoxin Crossmatch 10/30/19 10/30/19 10/30/19 05:15 06:32 09:44 WBC 13.8 H RBC 3.59 L Hgb 10.1 L Hct 32.4 L MCHC 31 L RDW 17.4 H Plt Count Lymph % (Auto) 11.2 L Arthur % (Auto) 13.6 H Lymph # Arthur # 1.9 H Seg Neutrophils % 75.1 H Seg Neuts % (Manual) Lymphocytes % (Manual) Seg Neutrophils # 10.4 H Seg Neutrophils # Man Lymphocytes # (Manual) Monocytes # (Manual) POC ABG pH ABG pH POC ABG pCO2 51.7 H POC ABG pO2 111 H ABG pO2 ABG HCO3 ABG Base Excess ABG Hemoglobin Oxyhemoglobin Sodium Potassium Chloride Carbon Dioxide BUN Creatinine Glucose POC Glucose 141 H Calcium Phosphorus Magnesium Direct Bilirubin AST Alkaline Phosphatase C-Reactive Protein Serum Total Protein Total Protein Albumin Prealbumin Srfuc-0-Nnydiryyn Dmbye-0-Obmfrroku Gamma Globulins PEP Interpretation Triglycerides Urine pH Urine Creatinine Urine Total Protein Digoxin Crossmatch
[2019-10-30] MEDS ORDERED: VANCOMYCIN PHARMACY TO DOSE IV SCH (11:00)
--- NOTE | 2019-10-30 11:26 | Progress Note ---
Assessment and Plan Atrial fibrillation/flutter, spontaneously reverted to sinus rhythm treated with adenosine x1 on 10/15 on amiodarone and metoprolol for suppression Respiratory failure Sepsis Severe abdominal pain s/p exploratory laparotomy, abdominal washout, closure of abdominal fascia with wound vac placement on 10/05 s/p abdominal washout with partial colectomy and left colostomy on 10/16 s/p abdominal washout and closure on 10/22 Recent colon resection for bowel perforation following a colonoscopy Atypical chest pain troponins are normal Hx of SD/CAD [facility] 12/2017: PCI of the circumflex and second vessel POBA of the distal LAD occlusion. Left ventricle fraction 45-50%. Tobacco abuse COPD Hypertension Hyperlipidemia Continue medical management for atrial fibrillation suppression. Subjective Date of service: 10/30/19 Principal diagnosis: acute renal failure Interval history: Reintubated this morning for respiratory failure. Stable sinus rhythm on telemetry. Objective Vital Signs Temp Pulse Pulse Pulse Resp Resp BP 10/30/19 10:12 67 126/57 10/30/19 09:19 78 126/64 10/30/19 09:00 81 26 H 146/64 10/30/19 08:41 81 20 10/30/19 08:03 83 115/57 10/30/19 08:00 87 81 20 115/57 10/30/19 07:00 98 H 24 85/41 10/30/19 06:00 95 H 30 H 165/75 10/30/19 05:00 95 H 33 H 169/77 10/30/19 04:00 92 H 31 H 166/76 10/30/19 03:33 99 F 10/30/19 03:06 83 174/72 10/30/19 03:00 83 24 174/72 10/30/19 02:00 82 23 177/77 10/30/19 01:43 81 19 10/30/19 01:30 10/30/19 01:00 81 24 173/79 10/30/19 00:00 84 84 28 H 144/67 10/29/19 23:36 98.3 F 10/29/19 23:00 98 H 29 H 185/80 10/29/19 22:51 87 172/82 10/29/19 22:30 90 35 H 10/29/19 22:00 85 20 141/63 10/29/19 21:15 10/29/19 21:00 87 28 H 157/63 10/29/19 20:20 36 H 10/29/19 20:00 90 90 90 35 H 28 H 197/84 10/29/19 19:46 90 183/84 10/29/19 19:35 98.5 F 10/29/19 19:00 87 33 H 179/81 10/29/19 18:03 83 26 H 168/78 10/29/19 18:00 84 28 H 168/78 10/29/19 17:48 82 24 158/74 10/29/19 17:35 10/29/19 17:00 83 28 H 179/67 10/29/19 16:00 99.6 F 80 76 14 149/71 10/29/19 15:08 96 H 179/80 10/29/19 15:00 90 179/80 10/29/19 14:00 93 H 33 H 159/75 10/29/19 13:46 94 H 32 H 10/29/19 13:00 92 H 35 H 162/73 10/29/19 12:00 99.4 F 84 92 H 28 H 204/93 10/29/19 11:59 84 194/95 Pulse Ox 10/30/19 10:12 10/30/19 09:19 10/30/19 09:00 95 10/30/19 08:41 10/30/19 08:03 99 10/30/19 08:00 99 10/30/19 07:00 96 10/30/19 06:00 99 10/30/19 05:00 99 10/30/19 04:00 98 10/30/19 03:33 10/30/19 03:06 10/30/19 03:00 99 10/30/19 02:00 100 10/30/19 01:43 10/30/19 01:30 99 10/30/19 01:00 100 10/30/19 00:00 99 10/29/19 23:36 10/29/19 23:00 80 L 10/29/19 22:51 10/29/19 22:30 80 L 10/29/19 22:00 96 10/29/19 21:15 94 10/29/19 21:00 93 10/29/19 20:20 10/29/19 20:00 93 12/16/19 19:46 10/29/19 19:35 10/29/19 19:00 94 10/29/19 18:03 94 10/29/19 18:00 94 10/29/19 17:48 94 10/29/19 17:35 94 10/29/19 17:00 10/29/19 16:00 92 10/29/19 15:08 10/29/19 15:00 93 10/29/19 14:00 94 10/29/19 13:46 10/29/19 13:00 92 10/29/19 12:00 92 10/29/19 11:59 - Physical Examination General: Other (inutbated on the vent) Cardiac: Positive: Reg Rate and Rhythm Abdomen: Positive: Other (abdominal wound vac is in place) - Labs and Meds CBC 10/30/19 Range/Units 05:15 WBC 13.8 H (4.5-11.0) K/mm3 RBC 3.59 L (3.65-5.03) M/mm3 Hgb 10.1 L (11.8-15.2) gm/dl Hct 32.4 L (35.5-45.6) % Plt Count 366 (140-440) K/mm3 Lymph # 1.5 (1.2-5.4) K/mm3 Crane # 1.9 H (0.0-0.8) K/mm3 Eos # 0.0 (0.0-0.4) K/mm3 Baso # 0.0 (0.0-0.1) K/mm3 Comprehensive Metabolic Panel 10/30/19 Range/Units 05:15 Sodium 147 H (137-145) mmol/L Potassium 4.8 (3.6-5.0) mmol/L Chloride 107.8 H (98-107) mmol/L Carbon Dioxide 27 (22-30) mmol/L BUN 26 H (9-20) mg/dL Creatinine 0.5 L (0.8-1.5) mg/dL Glucose 139 H (75-100) mg/dL Calcium 8.5 (8.4-10.2) mg/dL
--- NOTE | 2019-10-30 12:01 | Cat Scan Report ---
CT scan of the chest, abdomen, and pelvis with contrast INDICATION: check for fluid accumulation from sigmoid stump. TECHNIQUE: All CT scans at this location are performed using the following dose modulation technique: Automated exposure control. Helical slices were obtained through the chest, abdomen, and pelvis following the a dministration of 100 cc of Omnipaque 300 COMPARISON: CT scan dated 10/09/2019 FINDINGS: Chest: There is a small to moderate-sized left pneumothorax. Tracheal tube appears in satisfactory po sition radiographically. There is some airspace consolidation in the right lower lobe which could rep resent atelectasis or pneumonia. Mild patchy airspace opacities noted throughout the lungs. There are small bilateral pleural effusions. There is a small pericardial effusion. ABDOMEN: There is small amount of fluid adjacent to the liver. Changes of interval laparotomy are not ed. There is a gastrostomy tube. Distal end of the catheter is in the second portion of the duodenum. There is a surgical drain in the left abdomen. There is a small amount of free intraperitoneal air i s presumably postoperative. Ostomy site is noted in the left midabdomen. There is some edema in the m esenteric fat. There is a small amount of fluid in the mesentery Pelvis: There is a small amount of fluid central pelvis which measures approximately 4 x 3 cm. The ur inary bladder is distended. The appendix is unremarkable. On review of bone windows, no acute osseous abnormalities are seen. IMPRESSION: 1. There is fluid in the abdomen and central pelvis. Appears to be free fluid not appear this time. T here is some mild enhancement along the peritoneal lining. There is a small amount of free air. 2. There is a small to moderate-sized left pneumothorax There are small bilateral effusions. There is bibasilar atelectasis. There is airspace consolidation in the right lower lobe which could represent atelectasis or pneumoni a. Small amount of pericardial fluid. CRITICAL RESULT: Dr. Moran called this report to patient's nurse, Jaron, at time 1057 central time. Report was confi rmvictor manuel. Signer Name: Hernando Moran MD Signed: 10/30/2019 11:57 AM Workstation Name: [id number]
[2019-10-30] MEDS: MICAFUNGIN 100 MG in SODIUM CHLORIDE 0.9% 100 ML IV SCH (12:20)
[2019-10-30] MEDS ORDERED: fentaNYL 100 MCG/2 ML INJ IV ONE (12:30)
[2019-10-30] MEDS ORDERED: MIDAZOLAM 5 MG/5 ML INJ MDV IV ONE ×2 (12:30→12:42)
--- NOTE | 2019-10-30 12:41 | Progress Note ---
Assessment and Plan Cultures 10/10/2019 surgical culture: No growth at 72 hours 10/13/2019 tracheal aspirate culture: No growth 10/13/2019 peritoneal fluid: Enterococcus species (S to Penicillin, Vancomycin) 10/15/2019 blood culture: no growth 10/26/2019 urine culture: no growth thus far 10/26/2019 blood culture: no growth at 24 hours Assessment: 54 yo M PMhx CAD, COPD, recent complicated course of bowel perforation after a colonoscopy admitted with surgical site dehiscence of the fascia. Now with: # Acute sepsis - present with leukocytosis and tachycardia. Most likely secondary to fluid collection/abscess in the abdomen and anastomotic leak. # New fevers: new fevers on 10/25 and 10/26. Ongoing work up and empiric abx. Has indwelling PICC, [place] was removed 10/26. UA unremarkable for infection. # Intra-abdominal infection from anastomotic leak - s/p ex lap with closure of abdominal wall and wound vac placement (10/05/2019); s/p Re-exploration, washout, transection of colon, Abthera placement - 10/13/2019. s/p re- exploration and colostomy creation on 10/16/2019, intra-operatively was found to have "Small amount of continued leak from the old anastomotic site. Some contamination still present. Bowel was all viable". Back on OR on 10/19/2019, findings "small leak from stump staple line". OR again on 10/22/2019 for: Abdominal washout. Closure of abdominal fascia. Wound vac placement. Findings, "contamination from the sigmoid stump closure site." # COPD, acute respiratory failure: s/p extubation. On high flow O2. # Penicillin allergy - likely not a true allergy, reviewed EMR for previous exposure to PCNs, patient received several days of Zosyn in 2018 without issue. Recs: - given recent prolonged exposure to abx and TPN, at risk of MDR infections, candidemia, continue empiric Meropenem, Vancomycin and Micafungin - f/u blood culture, fungal blood culture. UA unremarkable. Whitfield was removed 10/26/2019. - consider stopping micafungin if fungal blood cultures are negative at 5 days - repeat scans with: moderate pneumothorax, some fluid and post-operative changes. No obvious acute source of infection. [facility] ([facility] M: [phone] O: [phone] F: [phone] Subjective Date of service: 10/30/19 Principal diagnosis: acute renal failure Interval history: Afebrile, white count slightly increased. Objective - Exam Narrative Exam: Constitutional: awake, alert, no distress Head, Ears, Nose: Normocephalic, atraumatic. External ears, nose normal Eyes: Conjunctivae/corneas clear. No icterus. No ptosis. Neck: supple, no meningeal signs Oral: no thrush Cardiovascular: S1, S2 normal. Respiratory: rhonchi bilaterally GI: Midline abdominal VAC. bowel sounds +, Colostomy + drains + Musculoskeletal: anasarca, pedal edema + but improving Skin: No rash or abscess Hem/Lymphatic: No palpable cervical or supraclavicular nodes. No lymphangitis Psych: no agitation Neurological: awake, alert - Constitutional Vitals: Vital Signs Temp Pulse Resp BP Pulse Ox 98.4 F 70 20 110/60 99 10/30/19 08:00 10/30/19 12:00 10/30/19 12:00 10/30/19 12:00 10/30/19 12:00 Temperature -Last 24 Hours Temperature 98.4 F Temperature 99 F Temperature 98.3 F Temperature 98.5 F Temperature 99.6 F - Labs CBC & Chem 7: 10/30/19 05:15 10/30/19 05:15 Labs: Abnormal lab results 10/29/19 10/29/19 10/29/19 Range/Units 13:10 18:02 23:58 WBC (4.5-11.0) K/mm3 RBC (3.65-5.03) M/mm3 Hgb (11.8-15.2) gm/dl Hct (35.5-45.6) % MCHC (32-34) % RDW (13.2-15.2) % Lymph % (Auto) (13.4-35.0) % [place] % (Auto) (0.0-7.3) % [place] # (0.0-0.8) K/mm3 Seg Neutrophils % (40.0-70.0) % Seg Neutrophils # (1.8-7.7) K/mm3 POC ABG pCO2 (35-45) POC ABG pO2 (80-105) Sodium (137-145) mmol/L Chloride (98-107) mmol/L BUN (9-20) mg/dL Creatinine (0.8-1.5) mg/dL Glucose (75-100) mg/dL POC Glucose 140 H 140 H 161 H (70-105) Magnesium (1.7-2.3) mg/dL 10/30/19 10/30/19 10/30/19 Range/Units 01:05 05:15 05:15 WBC 13.8 H (4.5-11.0) K/mm3 RBC 3.59 L (3.65-5.03) M/mm3 Hgb 10.1 L (11.8-15.2) gm/dl Hct 32.4 L (35.5-45.6) % MCHC 31 L (32-34) % RDW 17.4 H (13.2-15.2) % Lymph % (Auto) 11.2 L (13.4-35.0) % [place] % (Auto) 13.6 H (0.0-7.3) % [place] # 1.9 H (0.0-0.8) K/mm3 Seg Neutrophils % 75.1 H (40.0-70.0) % Seg Neutrophils # 10.4 H (1.8-7.7) K/mm3 POC ABG pCO2 62.0 H (35-45) POC ABG pO2 168 H (80-105) Sodium 147 H (137-145) mmol/L Chloride 107.8 H (98-107) mmol/L BUN 26 H (9-20) mg/dL Creatinine 0.5 L (0.8-1.5) mg/dL Glucose 139 H (75-100) mg/dL POC Glucose (70-105) Magnesium 2.40 H (1.7-2.3) mg/dL 10/30/19 10/30/19 Range/Units 06:32 09:44 WBC (4.5-11.0) K/mm3 RBC (3.65-5.03) M/mm3 Hgb (11.8-15.2) gm/dl Hct (35.5-45.6) % MCHC (32-34) % RDW (13.2-15.2) % Lymph % (Auto) (13.4-35.0) % [place] % (Auto) (0.0-7.3) % [place] # (0.0-0.8) K/mm3 Seg Neutrophils % (40.0-70.0) % Seg Neutrophils # (1.8-7.7) K/mm3 POC ABG pCO2 51.7 H (35-45) POC ABG pO2 111 H (80-105) Sodium (137-145) mmol/L Chloride (98-107) mmol/L BUN (9-20) mg/dL Creatinine (0.8-1.5) mg/dL Glucose (75-100) mg/dL POC Glucose 141 H (70-105) Magnesium (1.7-2.3) mg/dL
[2019-10-30] MEDS ORDERED: fentaNYL 100 MCG/2 ML INJ ONE (12:42)
--- NOTE | 2019-10-30 15:42 | Post Operative Note ---
Date of procedure: 10/30/19 Pre-op diagnosis: Left pneumothorax Post-op diagnosis: same Procedure: CT guided 12 Fr APD chest tube placement in the left pleural space Anesthesia: local (w/ conscious) Surgeon: LIZ HDZ Estimated blood loss: minimal Condition: stable Disposition: ICU
--- NOTE | 2019-10-30 15:45 | Post Operative Note ---
Date of procedure: 10/30/19 Pre-op diagnosis: LLQ collection Post-op diagnosis: same Procedure: CT guided placement of a 12 Fr APD drain in the LLQ collection Anesthesia: local (w/ conscious sedation) Surgeon: LIZ HDZ Estimated blood loss: minimal Condition: stable Disposition: ICU
--- NOTE | 2019-10-30 17:40 | XRay Report ---
CHEST 1 VIEW 10/30/2019 5:17 PM INDICATION / CLINICAL INFORMATION: left chest tube placement. COMPARISON: CT chest, abdomen and pelvis with contrast from earlier today. FINDINGS: SUPPORT DEVICES: A left chest tube terminates medially along the left lower lobe. A right arm PICC te rminates at the cavoatrial junction. HEART / MEDIASTINUM: Stable. LUNGS / PLEURA: Bibasilar opacities are again noted with stable bilateral pleural effusions. There is a small left apical pneumothorax. ADDITIONAL FINDINGS: No significant additional findings. IMPRESSION: 1. Post left chest tube placement with a small left apical pneumothorax. 2. Otherwise stable appearance of the chest. Signer Name: Marcus Mckenzie MD Signed: 10/30/2019 5:35 PM Workstation Name: [id number]
[2019-10-30] MEDS: ENOXAPARIN 40 MG/0.4 ML INJ SUB-Q SCH (21:33)
[2019-10-31] MEDS: INSULIN LISPRO 100 UNIT/ML SUB-Q SCH ×4 (00:06→17:50)
[2019-10-31] MEDS: METOPROLOL TARTRATE 50 MG TAB PO SCH ×4 (00:06→22:19)
[2019-10-31] MEDS: MEROPENEM/NS 1 GRAM/100 ML 1 GRAM/100 ML BAG IV SCH ×3 (01:40→17:46)
[2019-10-31] MEDS: IPRATROPIUM/ALBUTEROL SULFATE 3 ML AMPUL.NEB IH SCH ×4 (04:28→22:14)
[2019-10-31 05:43] LABS: Hematocrit 27.9 % (35.5-45.6); Mean Corpuscular HGB Conc 32 % (32-34); Mean Corpuscular Volume 90 fl (84-94); Platelet Count 308 K/mm3 (140-440); Red Blood Count 3.11 M/mm3 (3.65-5.03); Red Cell Distribution Width 17.1 % (13.2-15.2)
[2019-10-31] MEDS: HYDROmorphone 2 MG/1 ML INJ IV PRN ×2 (06:16→23:17)
[2019-10-31] MEDS: VANCOMYCIN 2,000 MG in SODIUM CHLORIDE 0.9% 500 ML 500 ML IV SCH ×3 (06:17→22:20)
[2019-10-31 06:39] LABS: BUN/Creatinine Ratio 53; Blood Urea Nitrogen 37 mg/dL (9-20); Calcium 8.6 mg/dL (8.4-10.2); Hemolysis Index 64
[2019-10-31] MEDS ORDERED: DEXTROSE 5% IN WATER 1,000 ML IV SCH (08:00)
[2019-10-31] MEDS: BUDESONIDE 0.5 MG/2 ML NEBU IH SCH ×2 (08:02→22:14)
[2019-10-31] MEDS: ARFORMOTEROL 15 MCG/2 ML NEBU IH SCH ×2 (08:03→22:14)
--- NOTE | 2019-10-31 08:50 | Progress Note ---
Assessment and Plan - Patient Problems (1) Dehiscence of closure of fascia, superficial or muscular Current Visit: No Status: Acute Qualifiers: Encounter type: initial encounter Qualified Code(s): T81.32XA - Disruption of internal operation (surgical) wound, not elsewhere classified, initial encounter Plan to address problem: Pt stable. s/p ex lap with closure of abdominal wall and wound vac placement (10/05) - POD#23; s/p Re-exploration, washout, transection of colon, Abthera placement - 10/13 - POD#15; s/p abd washout, partial omentectomy, partial colectomy with colostomy - 10/16 POD#13. s/p abd washout, feeding tube placement, AbThera placement - 10/19 - POD#10; Abdominal washout and closure - 10/22 - POD#8 Patient appears stable today. Drains placed by IR yesterday -- Much appreciated! Rec: 1) Neuro - intubated. sedated. 2) CV - BP normal today 3) Resp - On vent. Small bore CT on left. Mgmt per ICU team. 4) GI - Ostomy looks good. Functioning now. Sump drains - Right drain was accidentally pulled out (10/30). Left one is still functioning. New small bore catheter placed 10/30 - minimal output. Hopefully suggests that stump is starting to close. Wound Vac - wound looked good on last check. continue wound vac. Ostomy - functioning now. NGT - appearance looks like contrast. Need to monitor. If it continues to tomorrow, may need to pause tube feeds to see if it backing up. 5) - BUN/Cr stable. 6) ID - Abx per ID. Enterococcus on cultures. 7) Nutrition - TPN. Continue for now until tube feeds tolerated at goal. 8) DVT prophylaxis - SCDs. Lovenox 9) Family -no family at bedside. Texted . 10) PT - will need rehab. Please call with questions. Subjective Date of service: 10/31/19 Patient Reports: Positive: other (drains placed in left chest and abdomen yesterday. ) Objective Vital Signs - 12hr 10/30/19 10/30/19 10/30/19 20:55 21:00 22:00 Temperature Pulse Rate 82 77 Pulse Rate [ 77 Anterior Bilateral Throughout] Pulse Rate [ From Monitor] Respiratory 20 20 Rate Respiratory 22 Rate [Anterior Bilateral Throughout] Blood Pressure 131/56 105/43 O2 Sat by Pulse 99 99 Oximetry 10/30/19 10/30/19 10/31/19 22:24 23:00 00:00 Temperature 98.7 F Pulse Rate 79 75 74 Pulse Rate [ Anterior Bilateral Throughout] Pulse Rate [ 74 From Monitor] Respiratory 20 20 20 Rate Respiratory Rate [Anterior Bilateral Throughout] Blood Pressure 105/43 105/48 131/55 O2 Sat by Pulse 99 100 100 Oximetry 10/31/19 10/31/19 10/31/19 00:06 00:30 01:00 Temperature Pulse Rate 75 70 71 Pulse Rate [ Anterior Bilateral Throughout] Pulse Rate [ From Monitor] Respiratory 22 Rate Respiratory Rate [Anterior Bilateral Throughout] Blood Pressure 131/55 128/55 130/54 O2 Sat by Pulse 100 100 Oximetry 10/31/19 10/31/19 10/31/19 02:00 03:00 03:29 Temperature 99.1 F Pulse Rate 74 77 Pulse Rate [ Anterior Bilateral Throughout] Pulse Rate [ From Monitor] Respiratory 25 H 27 H Rate Respiratory Rate [Anterior Bilateral Throughout] Blood Pressure 126/55 116/56 O2 Sat by Pulse 100 99 Oximetry 10/31/19 10/31/19 10/31/19 04:00 04:24 04:28 Temperature Pulse Rate 77 79 Pulse Rate [ 80 Anterior Bilateral Throughout] Pulse Rate [ 77 From Monitor] Respiratory 26 H Rate Respiratory 22 Rate [Anterior Bilateral Throughout] Blood Pressure 128/57 128/57 O2 Sat by Pulse 99 99 Oximetry 10/31/19 10/31/19 10/31/19 05:00 06:00 06:17 Temperature Pulse Rate 80 81 85 Pulse Rate [ Anterior Bilateral Throughout] Pulse Rate [ From Monitor] Respiratory 20 23 Rate Respiratory Rate [Anterior Bilateral Throughout] Blood Pressure 124/61 130/59 130/59 O2 Sat by Pulse 99 99 Oximetry 10/31/19 10/31/19 10/31/19 07:00 07:53 08:00 Temperature 98.9 F Pulse Rate 85 86 Pulse Rate [ 87 Anterior Bilateral Throughout] Pulse Rate [ From Monitor] Respiratory 20 Rate Respiratory 20 Rate [Anterior Bilateral Throughout] Blood Pressure 112/47 123/48 O2 Sat by Pulse 99 100 Oximetry - General physical appearance no distress, no pain, other (intubated, sedated) - Respiratory normal expansion, normal respiratory effort - Abdomen soft, not distended, other (minimal output in new abdominal drain. Same output in sump drain. Wound vac with serosang drainage. Ostomy working well ) - Labs 10/31/19 04:18 10/31/19 04:18 Diabetes panel 10/31/19 Range/Units 04:18 Sodium 148 H (137-145) mmol/L Potassium 4.9 (3.6-5.0) mmol/L Chloride 108.7 H (98-107) mmol/L Carbon Dioxide 24 (22-30) mmol/L BUN 37 H (9-20) mg/dL Creatinine 0.7 L (0.8-1.5) mg/dL Glucose 102 H (75-100) mg/dL Calcium 8.6 (8.4-10.2) mg/dL Calcium panel 10/31/19 Range/Units 04:18 Calcium 8.6 (8.4-10.2) mg/dL Pituitary panel 10/31/19 Range/Units 04:18 Sodium 148 H (137-145) mmol/L Potassium 4.9 (3.6-5.0) mmol/L Chloride 108.7 H (98-107) mmol/L Carbon Dioxide 24 (22-30) mmol/L BUN 37 H (9-20) mg/dL Creatinine 0.7 L (0.8-1.5) mg/dL Glucose 102 H (75-100) mg/dL Calcium 8.6 (8.4-10.2) mg/dL Adrenal panel 10/31/19 Range/Units 04:18 Sodium 148 H (137-145) mmol/L Potassium 4.9 (3.6-5.0) mmol/L Chloride 108.7 H (98-107) mmol/L Carbon Dioxide 24 (22-30) mmol/L BUN 37 H (9-20) mg/dL Creatinine 0.7 L (0.8-1.5) mg/dL Glucose 102 H (75-100) mg/dL Calcium 8.6 (8.4-10.2) mg/dL
[2019-10-31] MEDS: MICAFUNGIN 100 MG in SODIUM CHLORIDE 0.9% 100 ML IV SCH (09:38)
[2019-10-31] MEDS: CITALOPRAM 20 MG TAB PO SCH (09:39)
[2019-10-31] MEDS: AMIODARONE 200 MG TAB PO SCH (09:39)
[2019-10-31] MEDS: PANTOPRAZOLE 40 MG INJ IV SCH (09:39)
[2019-10-31] MEDS: LISINOPRIL 20 MG TAB PO SCH (09:39)
--- NOTE | 2019-10-31 11:04 | Progress Note ---
<PIYUSH VERDIN - Last Filed: 10/31/19 11:03> Assessment and Plan Atrial fibrillation/flutter, spontaneously reverted to sinus rhythm treated with adenosine x1 on 10/15 on amiodarone and metoprolol for suppression Respiratory failure Sepsis Severe abdominal pain s/p exploratory laparotomy, abdominal washout, closure of abdominal fascia with wound vac placement on 10/05 s/p abdominal washout with partial colectomy and left colostomy on 10/16 s/p abdominal washout and closure on 10/22 Recent colon resection for bowel perforation following a colonoscopy Atypical chest pain troponins are normal Hx of NM/CAD [facility] 12/2017: PCI of the circumflex and second vessel POBA of the distal LAD occlusion. Left ventricle fraction 45-50%. Tobacco abuse COPD Hypertension Hyperlipidemia Continue medical management for atrial fibrillation suppression. Subjective Date of service: 10/31/19 Principal diagnosis: acute renal failure Interval history: No reported cardiac events overnight. Remains in a stable sinus rhythm. Objective Vital Signs Temp Pulse Pulse Pulse Pulse Resp Resp 10/31/19 09:39 81 10/31/19 08:00 98.9 F 85 87 80 23 20 10/31/19 07:53 86 10/31/19 07:00 85 20 10/31/19 06:17 85 10/31/19 06:00 81 23 10/31/19 05:00 80 20 10/31/19 04:28 80 22 10/31/19 04:24 79 10/31/19 04:00 77 77 26 H 10/31/19 03:29 99.1 F 10/31/19 03:00 77 27 H 10/31/19 02:00 74 25 H 10/31/19 01:00 71 22 10/31/19 00:30 70 10/31/19 00:06 75 10/31/19 00:00 98.7 F 74 74 20 10/30/19 23:00 75 20 10/30/19 22:24 79 20 10/30/19 22:00 77 20 10/30/19 21:00 82 20 10/30/19 20:55 77 22 10/30/19 20:45 78 10/30/19 20:00 97.8 F 76 74 22 10/30/19 19:00 72 20 10/30/19 18:00 75 20 10/30/19 17:28 10/30/19 17:00 71 23 10/30/19 16:26 71 22 10/30/19 16:12 74 10/30/19 16:06 74 10/30/19 16:00 97.8 F 77 71 20 10/30/19 15:44 97.9 F 10/30/19 15:24 10/30/19 15:04 91 H 10/30/19 14:57 92 H 10/30/19 14:52 91 H 10/30/19 14:48 92 H 10/30/19 14:43 92 H 10/30/19 14:39 91 H 10/30/19 14:34 92 H 10/30/19 14:30 90 10/30/19 14:23 91 H 10/30/19 14:20 91 H 10/30/19 14:14 90 10/30/19 14:08 92 H 10/30/19 14:03 94 H 10/30/19 13:57 95 H 10/30/19 13:53 97 H 10/30/19 13:48 96 H 10/30/19 13:00 71 22 10/30/19 12:42 70 10/30/19 12:00 98.6 F 70 89 22 10/30/19 11:11 79 18 Resp BP BP Pulse Ox Pulse Ox 10/31/19 09:39 136/60 10/31/19 08:00 127/63 100 10/31/19 07:53 123/48 100 10/31/19 07:00 112/47 99 10/31/19 06:17 130/59 10/31/19 06:00 130/59 99 10/31/19 05:00 124/61 99 10/31/19 04:28 10/31/19 04:24 128/57 99 10/31/19 04:00 128/57 99 10/31/19 03:29 10/31/19 03:00 116/56 99 10/31/19 02:00 126/55 100 10/31/19 01:00 130/54 100 10/31/19 00:30 128/55 100 10/31/19 00:06 131/55 10/31/19 00:00 131/55 100 10/30/19 23:00 105/48 100 10/30/19 22:24 105/43 99 10/30/19 22:00 105/43 99 10/30/19 21:00 131/56 99 10/30/19 20:55 10/30/19 20:45 128/56 99 10/30/19 20:00 118/49 99 10/30/19 19:00 113/51 100 10/30/19 18:00 99/40 99 10/30/19 17:28 97 10/30/19 17:00 115/47 97 10/30/19 16:26 10/30/19 16:12 102/45 10/30/19 16:06 102/45 99 10/30/19 16:00 102/45 99 10/30/19 15:44 10/30/19 15:24 118/58 99 10/30/19 15:04 22 132/57 100 10/30/19 14:57 20 139/58 100 10/30/19 14:52 19 121/59 100 10/30/19 14:48 17 136/61 100 10/30/19 14:43 20 124/64 100 10/30/19 14:39 22 138/60 100 10/30/19 14:34 18 126/58 100 10/30/19 14:30 28 H 114/57 100 10/30/19 14:23 26 H 126/54 100 10/30/19 14:20 24 118/51 100 10/30/19 14:14 23 114/50 99 10/30/19 14:08 28 H 111/53 99 10/30/19 14:03 21 103/53 100 10/30/19 13:57 24 116/56 99 10/30/19 13:53 22 118/55 99 10/30/19 13:48 22 154/65 99 10/30/19 13:00 110/60 79 L 10/30/19 12:42 118/58 100 10/30/19 12:00 110/60 97 10/30/19 11:11 149/67 99 - Physical Examination General: Other (inutbated on the vent) HEENT: Positive: PERRL Neck: Positive: trachea midline Cardiac: Positive: Reg Rate and Rhythm Abdomen: Positive: Other (abdominal wound vac is in place) - Labs and Meds CBC 10/31/19 Range/Units 04:18 WBC 11.7 H (4.5-11.0) K/mm3 RBC 3.11 L (3.65-5.03) M/mm3 Hgb 9.0 L (11.8-15.2) gm/dl Hct 27.9 L (35.5-45.6) % Plt Count 308 (140-440) K/mm3 Comprehensive Metabolic Panel 10/31/19 Range/Units 04:18 Sodium 148 H (137-145) mmol/L Potassium 4.9 (3.6-5.0) mmol/L Chloride 108.7 H (98-107) mmol/L Carbon Dioxide 24 (22-30) mmol/L BUN 37 H (9-20) mg/dL Creatinine 0.7 L (0.8-1.5) mg/dL Glucose 102 H (75-100) mg/dL Calcium 8.6 (8.4-10.2) mg/dL <RADHA BAKER - Last Filed: 11/06/19 23:36> Assessment and Plan I have seen and evaluated the patient and agree with the assessment and plan. Objective Vital Signs Temp Pulse Pulse Pulse Resp Resp BP 11/06/19 22:00 77 22 128/64 11/06/19 21:30 84 22 124/74 11/06/19 21:13 86 141/67 11/06/19 21:00 80 26 H 141/67 11/06/19 20:53 82 19 11/06/19 20:30 77 25 H 133/70 11/06/19 20:00 98.7 F 84 78 18 135/71 11/06/19 19:30 75 21 125/74 11/06/19 19:00 73 22 121/66 11/06/19 18:30 72 21 128/60 11/06/19 18:00 73 20 121/62 11/06/19 17:30 73 18 121/69 11/06/19 17:00 80 21 99/67 11/06/19 16:30 67 18 117/59 11/06/19 16:00 97.6 F 69 68 20 103/55 11/06/19 15:30 68 15 111/54 11/06/19 15:00 68 17 109/52 11/06/19 14:30 75 17 114/53 11/06/19 14:00 82 27 H 137/63 11/06/19 13:54 84 135/70 11/06/19 13:31 80 25 H 11/06/19 13:30 78 22 135/70 11/06/19 13:00 82 21 137/73 11/06/19 12:30 79 24 143/70 11/06/19 12:00 98.6 F 76 78 20 136/63 11/06/19 11:30 79 19 136/60 11/06/19 11:00 76 20 133/65 11/06/19 10:30 75 17 119/62 11/06/19 10:00 75 18 110/61 11/06/19 09:30 75 18 110/61 11/06/19 09:03 73 125/56 11/06/19 09:00 74 16 125/56 11/06/19 08:30 75 17 124/59 11/06/19 08:00 99.2 F 75 75 20 119/59 11/06/19 07:32 11/06/19 07:31 74 17 11/06/19 07:30 74 16 115/57 11/06/19 07:00 78 18 123/52 11/06/19 06:34 78 122/92 11/06/19 06:30 122/92 11/06/19 06:00 124/58 11/06/19 05:30 78 26 H 120/57 11/06/19 05:00 76 25 H 120/54 11/06/19 04:30 74 21 124/56 11/06/19 04:00 76 78 23 108/59 11/06/19 03:30 75 22 121/59 11/06/19 03:05 97.4 F L 11/06/19 03:00 74 22 114/53 11/06/19 02:30 76 22 118/53 11/06/19 02:00 79 24 123/65 11/06/19 01:30 74 18 124/46 11/06/19 01:12 76 20 11/06/19 01:00 73 18 114/50 11/06/19 00:30 72 17 112/53 11/06/19 00:00 72 78 19 119/54 Pulse Ox 11/06/19 22:00 92 11/06/19 21:30 97 11/06/19 21:13 11/06/19 21:00 94 11/06/19 20:53 97 11/06/19 20:30 95 11/06/19 20:00 98 11/06/19 19:30 97 11/06/19 19:00 98 11/06/19 18:30 98 11/06/19 18:00 97 11/06/19 17:30 96 11/06/19 17:00 95 11/06/19 16:30 95 11/06/19 16:00 97 11/06/19 15:30 97 11/06/19 15:00 98 11/06/19 14:30 96 11/06/19 14:00 91 11/06/19 13:54 11/06/19 13:31 11/06/19 13:30 92 11/06/19 13:00 95 11/06/19 12:30 96 11/06/19 12:00 92 11/06/19 11:30 95 11/06/19 11:00 11/06/19 10:30 98 11/06/19 10:00 98 11/06/19 09:30 100 11/06/19 09:03 11/06/19 09:00 96 11/06/19 08:30 97 11/06/19 08:00 95 11/06/19 07:32 98 11/06/19 07:31 11/06/19 07:30 96 11/06/19 07:00 93 11/06/19 06:34 11/06/19 06:30 93 11/06/19 06:00 94 11/06/19 05:30 93 11/06/19 05:00 95 11/06/19 04:30 94 11/06/19 04:00 96 11/06/19 03:30 95 11/06/19 03:05 11/06/19 03:00 94 11/06/19 02:30 95 11/06/19 02:00 96 11/06/19 01:30 96 11/06/19 01:12 11/06/19 01:00 95 11/06/19 00:30 95 11/06/19 00:00 95 - Labs and Meds CBC 11/06/19 Range/Units 05:00 WBC 12.2 H (4.5-11.0) K/mm3 RBC 2.89 L (3.65-5.03) M/mm3 Hgb 8.2 L (11.8-15.2) gm/dl Hct 24.9 L (35.5-45.6) % Plt Count 321 (140-440) K/mm3 Comprehensive Metabolic Panel 11/06/19 Range/Units 05:00 Sodium 140 (137-145) mmol/L Potassium 3.7 (3.6-5.0) mmol/L Chloride 100.5 (98-107) mmol/L Carbon Dioxide 26 (22-30) mmol/L BUN 11 (9-20) mg/dL Creatinine 0.4 L (0.8-1.5) mg/dL Glucose 114 H (75-100) mg/dL Calcium 8.2 L (8.4-10.2) mg/dL
--- NOTE | 2019-10-31 11:14 | Progress Note ---
Assessment and Plan 54 y/o male with anastomic leak 10/31: Will check CXR tomorrow. Continue chest tube to suction. Will likely stay in until extubated. Continue drains. Explained to staff to be extremely careful with these drains so that they do not come out. 10/30: Acute on chronic respiratory failure requiring reintubation. Appreciate Anesthesia assistance as he was a difficult intubation when we had to change his tube out about 1 week ago. Will continue on 100% until after Scans and then start to wean back down. CXR yesterday looked like pulmonary edema but improved today with positive pressure. Continue supportive care and await results of scans. 10/29: Discussed today on rounds. Patient had some issues over the weekend with the ICE chips and liquids. Will obtain speech consult/eval prior to restarting clears today. Spoke with nutrition and they will adjust tube feeds with new goal. Once at goal will start to taper off TPN. ordered Incentive madhu to bedside. Will also restart home dose of elaine today. pain control and drainage monitoring. Will continue ICU care. 10/26: Patient stable overall. Not ready for floor. Would be ok with step down if beds are needed. If spikes temp again will order blood cultures x2, urine culture, UA and repeat CXR. Gave an additional 40 of lasix this am. Will give more potassium replacement. Continue trickle feeds for now. Will continue PO meds and restart home dose of citalopram. Wean FiO2 and flow for sats >88%. Mildly hypertensive but this was secondary to agitation. Normalizing now. 10/25: Will extubate today. Will use HFNC if distress or hypoxemia is noted. Not a good candidate for bipap given his recent abdominal issues. Spoke with who is now at bedside and surgery. Will continue to attempt to achieve net negative state daily. Hold on further albumin administration. Hypernatremia is iatrogenic from lasix administration Worse case scenario, will re-intubate with anesthesia. 10/24: Responding well to lasix and protein therapy. Will give 2 more doses of lasix today. Consider one for tonight as well. Last albumin today at 1800. CXR is stable, still with layering bilateral pleural effusions. Will reassess again tomorrow. Reviewed all other mental health consultant notes. Spoke with sisters at bedside, updated and spoke with surgery. 10/23: Long discussion with surgery and via phone. Anasarca is likely from decreased oncotic pressure and immobility of several days now that abdomen is finally closed. Now fluid is essentially leaking into the interstitium now that the abdomen is shut and there is increased intra-abdominal pressure. Total Protein is 4.5 and albumin is 1.2. This is to be expected given current illness. Will attempt to increase oncotic pressure with 2 units of PRBC's and albumin infusions for the next 24 hours starting at midnight tonight. Will give lasix inbetween transfusions and then again tonight. CXR is consistent with pulmonary edema volume overload. Will continue vent for now and after significant volume removal then will attempt extubation. Discussed with and she understands. Will continue to monitor. Agree with trickle feeds and cards has switched amio over to PO to be given through the G-tube. If tolerates, hopeful to be rid of TPN soon as this is necessary but excessive volume as well. 10/22: Added diprovan as more sedation was needed. Hopefully once closed and no leaks, patient can be extubated. Cards very concerned about length of time for IV amio. Will discuss with surgery the time frame that gut can be used. 10/21: Will hold on weaning until abdomen is closed, especially knowing mental status is good. Will focus on pain control. Replace electrolytes. Appreciate Surgery recs and detail. Follow up any new recs from cards. Or tomorrow for closure CCT 31 minutes. Subjective Date of service: 10/31/19 Principal diagnosis: acute renal failure Interval history: No acute events. No ABG this am. BP stable. Started on D5W by IMS. Objective Vital Signs - 12hr 10/31/19 10/31/19 10/31/19 00:00 00:06 00:30 Temperature 98.7 F Pulse Rate 74 75 70 Pulse Rate [ Anterior Bilateral Throughout] Pulse Rate [ 74 From Monitor] Respiratory 20 Rate Respiratory Rate [Anterior Bilateral Throughout] Blood Pressure 131/55 131/55 128/55 O2 Sat by Pulse 100 100 Oximetry 10/31/19 10/31/19 10/31/19 01:00 02:00 03:00 Temperature Pulse Rate 71 74 77 Pulse Rate [ Anterior Bilateral Throughout] Pulse Rate [ From Monitor] Respiratory 22 25 H 27 H Rate Respiratory Rate [Anterior Bilateral Throughout] Blood Pressure 130/54 126/55 116/56 O2 Sat by Pulse 100 100 99 Oximetry 10/31/19 10/31/19 10/31/19 03:29 04:00 04:24 Temperature 99.1 F Pulse Rate 77 79 Pulse Rate [ Anterior Bilateral Throughout] Pulse Rate [ 77 From Monitor] Respiratory 26 H Rate Respiratory Rate [Anterior Bilateral Throughout] Blood Pressure 128/57 128/57 O2 Sat by Pulse 99 99 Oximetry 10/31/19 10/31/19 10/31/19 04:28 05:00 06:00 Temperature Pulse Rate 80 81 Pulse Rate [ 80 Anterior Bilateral Throughout] Pulse Rate [ From Monitor] Respiratory 20 23 Rate Respiratory 22 Rate [Anterior Bilateral Throughout] Blood Pressure 124/61 130/59 O2 Sat by Pulse 99 99 Oximetry 10/31/19 10/31/19 10/31/19 06:17 07:00 07:53 Temperature Pulse Rate 85 85 86 Pulse Rate [ Anterior Bilateral Throughout] Pulse Rate [ From Monitor] Respiratory 20 Rate Respiratory Rate [Anterior Bilateral Throughout] Blood Pressure 130/59 112/47 123/48 O2 Sat by Pulse 99 100 Oximetry 10/31/19 10/31/19 08:00 09:39 Temperature 98.9 F Pulse Rate 85 81 Pulse Rate [ 87 Anterior Bilateral Throughout] Pulse Rate [ 80 From Monitor] Respiratory 23 Rate Respiratory 20 Rate [Anterior Bilateral Throughout] Blood Pressure 127/63 136/60 O2 Sat by Pulse 100 Oximetry Constitutional: alert, other (critically ill on HFNC) Eyes: non-icteric ENT: oropharynx moist Neck: supple Effort: mildly labored Ascultation: Bilateral: diminished breath sounds (bases) Cardiovascular: regular rate and rhythm (no mrg) Gastrointestinal: tender, other (obese, distended) Integumentary: normal Extremities: no cyanosis, pink and warm, edema (1+ bilateral LE edema) Neurologic: normal mental status, non-focal exam, pupils equal and round Psychiatric: mood appropriate, affect normal CBC and BMP: 10/31/19 04:18 10/31/19 04:18 ABG, PT/INR, D-dimer: ABG POC ABG pH 7.396 (7.35-7.45) 10/30/19 09:44 ABG pH 7.390 pH Units (7.350-7.450) 10/23/19 04:47 POC ABG pCO2 51.7 (35-45) H 10/30/19 09:44 ABG pCO2 48.4 mm Hg 10/23/19 04:47 POC ABG pO2 111 (80-105) H 10/30/19 09:44 ABG pO2 68.9 mm Hg (80.0-90.0) L 10/23/19 04:47 POC ABG HCO3 31.7 (22-26 mml/L) 10/30/19 09:44 POC ABG Total CO2 33 (23-27mmol/L) 10/30/19 09:44 POC ABG O2 Sat 98 10/30/19 09:44 ABG O2 Saturation 96.6 % (95.0-99.0) 10/23/19 04:47 Abnormal lab findings: Abnormal Labs 10/06/19 10/06/19 10/07/19 05:36 05:36 05:54 WBC 21.8 H 21.5 H RBC 3.55 L Hgb 10.9 L Hct 32.7 L MCHC RDW Plt Count Lymph % (Auto) [place] % (Auto) Lymph # [place] # Seg Neutrophils % Seg Neuts % (Manual) 91.0 H Lymphocytes % (Manual) 2.0 L Seg Neutrophils # Seg Neutrophils # Man 19.8 H Lymphocytes # (Manual) 0.4 L Monocytes # (Manual) 1.1 H POC ABG pH ABG pH POC ABG pCO2 POC ABG pO2 ABG pO2 ABG HCO3 ABG Base Excess ABG Hemoglobin Oxyhemoglobin Sodium 135 L Potassium Chloride 95.9 L Carbon Dioxide BUN Creatinine 0.7 L Glucose POC Glucose Calcium Phosphorus Magnesium Direct Bilirubin AST Alkaline Phosphatase C-Reactive Protein Serum Total Protein Total Protein 5.7 L Albumin 2.5 L Prealbumin Mydfi-9-Wzzosiaqv Wgrsq-1-Gfhozxyyv Gamma Globulins PEP Interpretation Triglycerides Urine pH Urine Creatinine Urine Total Protein Digoxin Crossmatch 10/07/19 10/09/19 10/09/19 05:54 10:52 10:52 WBC 16.6 H RBC Hgb Hct MCHC RDW Plt Count 498 H Lymph % (Auto) [place] % (Auto) Lymph # [place] # Seg Neutrophils % Seg Neuts % (Manual) 93.0 H Lymphocytes % (Manual) 5.0 L Seg Neutrophils # Seg Neutrophils # Man 15.4 H Lymphocytes # (Manual) 0.8 L Monocytes # (Manual) POC ABG pH ABG pH POC ABG pCO2 POC ABG pO2 ABG pO2 ABG HCO3 ABG Base Excess ABG Hemoglobin Oxyhemoglobin Sodium Potassium Chloride 97.9 L Carbon Dioxide 20 L D BUN 23 H Creatinine 1.7 H D Glucose 109 H POC Glucose Calcium 8.1 L Phosphorus Magnesium Direct Bilirubin AST Alkaline Phosphatase C-Reactive Protein Serum Total Protein Total Protein Albumin Prealbumin Wssek-5-Bfdnnfirx Mtaba-1-Psmgxeikt Gamma Globulins PEP Interpretation Triglycerides Urine pH Urine Creatinine Urine Total Protein Digoxin Crossmatch 10/09/19 10/10/19 10/10/19 17:23 05:30 05:30 WBC 14.6 H RBC Hgb 11.1 L Hct 33.5 L MCHC RDW Plt Count 527 H Lymph % (Auto) [place] % (Auto) Lymph # [place] # Seg Neutrophils % Seg Neuts % (Manual) Lymphocytes % (Manual) Seg Neutrophils # Seg Neutrophils # Man Lymphocytes # (Manual) Monocytes # (Manual) POC ABG pH ABG pH POC ABG pCO2 POC ABG pO2 ABG pO2 ABG HCO3 ABG Base Excess ABG Hemoglobin Oxyhemoglobin Sodium 130 L D Potassium 5.1 H Chloride 90.0 L 91.0 L Carbon Dioxide 20 L 20 L BUN 27 H 35 H Creatinine 1.9 H 2.0 H Glucose 104 H POC Glucose Calcium Phosphorus Magnesium Direct Bilirubin AST Alkaline Phosphatase C-Reactive Protein Serum Total Protein Total Protein Albumin Prealbumin Xgqli-7-Rwzaolqsi Ocuuz-9-Fuakdggwg Gamma Globulins PEP Interpretation Triglycerides Urine pH Urine Creatinine Urine Total Protein Digoxin Crossmatch 10/10/19 10/10/19 10/11/19 08:33 08:44 05:41 WBC 13.2 H RBC Hgb 11.3 L Hct 33.8 L MCHC RDW 15.3 H Plt Count 543 H Lymph % (Auto) [place] % (Auto) Lymph # [place] # Seg Neutrophils % Seg Neuts % (Manual) Lymphocytes % (Manual) Seg Neutrophils # Seg Neutrophils # Man Lymphocytes # (Manual) Monocytes # (Manual) POC ABG pH ABG pH POC ABG pCO2 POC ABG pO2 ABG pO2 ABG HCO3 ABG Base Excess ABG Hemoglobin Oxyhemoglobin Sodium Potassium Chloride Carbon Dioxide BUN Creatinine Glucose 113 H POC Glucose 117 H Calcium Phosphorus Magnesium Direct Bilirubin AST Alkaline Phosphatase C-Reactive Protein Serum Total Protein Total Protein Albumin Prealbumin Zhnol-3-Tlvbgodgc Lhjnk-5-Jrokvixsm Gamma Globulins PEP Interpretation Triglycerides Urine pH Urine Creatinine Urine Total Protein Digoxin Crossmatch 10/11/19 10/11/19 10/11/19 05:41 06:23 06:23 WBC RBC Hgb Hct MCHC RDW Plt Count Lymph % (Auto) [place] % (Auto) Lymph # [place] # Seg Neutrophils % Seg Neuts % (Manual) Lymphocytes % (Manual) Seg Neutrophils # Seg Neutrophils # Man Lymphocytes # (Manual) Monocytes # (Manual) POC ABG pH ABG pH POC ABG pCO2 POC ABG pO2 ABG pO2 ABG HCO3 ABG Base Excess ABG Hemoglobin Oxyhemoglobin Sodium 134 L Potassium Chloride 96.3 L Carbon Dioxide BUN 37 H Creatinine Glucose 58 L POC Glucose Calcium Phosphorus 4.90 H Magnesium Direct Bilirubin AST Alkaline Phosphatase C-Reactive Protein Serum Total Protein Total Protein Albumin Prealbumin Uyiav-3-Gfptdzeca Zawsp-7-Lixqicyzp Gamma Globulins PEP Interpretation Triglycerides Urine pH Urine Creatinine 118.2 H 116.8 H Urine Total Protein 105 H 104 H Digoxin Crossmatch 10/11/19 10/12/19 10/12/19 09:00 06:09 06:09 WBC 13.8 H RBC 3.39 L Hgb 10.2 L Hct 30.9 L MCHC RDW 15.5 H Plt Count 459 H Lymph % (Auto) [place] % (Auto) Lymph # [place] # Seg Neutrophils % Seg Neuts % (Manual) Lymphocytes % (Manual) Seg Neutrophils # Seg Neutrophils # Man Lymphocytes # (Manual) Monocytes # (Manual) POC ABG pH ABG pH POC ABG pCO2 POC ABG pO2 ABG pO2 ABG HCO3 ABG Base Excess ABG Hemoglobin Oxyhemoglobin Sodium 131 L Potassium Chloride 96.2 L Carbon Dioxide 21 L BUN 43 H Creatinine Glucose 72 L POC Glucose Calcium Phosphorus Magnesium Direct Bilirubin AST Alkaline Phosphatase C-Reactive Protein Serum Total Protein 5.2 L Total Protein Albumin 1.9 L Prealbumin Wfber-1-Epmnsnjza 0.9 H Ujfza-7-Bnjbsyabi 1.0 H Gamma Globulins 0.7 L PEP Interpretation see below H Triglycerides Urine pH Urine Creatinine Urine Total Protein Digoxin Crossmatch 10/12/19 10/12/19 10/12/19 08:20 09:30 09:30 WBC RBC Hgb Hct MCHC RDW Plt Count Lymph % (Auto) [place] % (Auto) Lymph # [place] # Seg Neutrophils % Seg Neuts % (Manual) Lymphocytes % (Manual) Seg Neutrophils # Seg Neutrophils # Man Lymphocytes # (Manual) Monocytes # (Manual) POC ABG pH ABG pH POC ABG pCO2 POC ABG pO2 63 L ABG pO2 ABG HCO3 ABG Base Excess ABG Hemoglobin Oxyhemoglobin Sodium Potassium Chloride Carbon Dioxide BUN Creatinine Glucose POC Glucose Calcium Phosphorus Magnesium 2.50 H Direct Bilirubin 0.3 H AST Alkaline Phosphatase C-Reactive Protein Serum Total Protein Total Protein 5.1 L Albumin 2.2 L Prealbumin Shdfn-2-Uvlmdoisp Ubnje-4-Ogenzwkzh Gamma Globulins PEP Interpretation Triglycerides Urine pH Urine Creatinine Urine Total Protein Digoxin Crossmatch 10/13/19 10/13/19 10/13/19 04:20 04:20 13:20 WBC 15.7 H RBC 3.64 L Hgb 10.9 L Hct 33.1 L MCHC RDW 15.8 H Plt Count 488 H Lymph % (Auto) [place] % (Auto) Lymph # [place] # Seg Neutrophils % Seg Neuts % (Manual) Lymphocytes % (Manual) Seg Neutrophils # Seg Neutrophils # Man Lymphocytes # (Manual) Monocytes # (Manual) POC ABG pH ABG pH POC ABG pCO2 POC ABG pO2 ABG pO2 ABG HCO3 ABG Base Excess ABG Hemoglobin Oxyhemoglobin Sodium Potassium Chloride Carbon Dioxide BUN 28 H Creatinine Glucose POC Glucose Calcium Phosphorus Magnesium Direct Bilirubin AST Alkaline Phosphatase C-Reactive Protein Serum Total Protein Total Protein Albumin Prealbumin Jaffl-2-Mcfkswfbc Kajdz-1-Twpahhjme Gamma Globulins PEP Interpretation Triglycerides Urine pH Urine Creatinine Urine Total Protein Digoxin Crossmatch See Detail 10/13/19 10/13/19 10/14/19 18:24 20:05 04:47 WBC 24.2 H RBC Hgb 10.9 L Hct 34.2 L MCHC RDW 17.0 H Plt Count 442 H Lymph % (Auto) [place] % (Auto) Lymph # [place] # Seg Neutrophils % Seg Neuts % (Manual) Lymphocytes % (Manual) Seg Neutrophils # Seg Neutrophils # Man Lymphocytes # (Manual) Monocytes # (Manual) POC ABG pH ABG pH 7.180 L* 7.278 L POC ABG pCO2 POC ABG pO2 ABG pO2 130.7 H ABG HCO3 ABG Base Excess -6.5 L -6.5 L ABG Hemoglobin 12.2 L 12.3 L Oxyhemoglobin 92.9 L Sodium Potassium Chloride Carbon Dioxide BUN Creatinine Glucose POC Glucose Calcium Phosphorus Magnesium Direct Bilirubin AST Alkaline Phosphatase C-Reactive Protein Serum Total Protein Total Protein Albumin Prealbumin Ycmys-9-Cekbuyuwk Ibslo-1-Qauuagstp Gamma Globulins PEP Interpretation Triglycerides Urine pH Urine Creatinine Urine Total Protein Digoxin Crossmatch 10/14/19 10/14/19 10/14/19 04:47 05:40 10:14 WBC RBC Hgb Hct MCHC RDW Plt Count Lymph % (Auto) [place] % (Auto) Lymph # [place] # Seg Neutrophils % Seg Neuts % (Manual) Lymphocytes % (Manual) Seg Neutrophils # Seg Neutrophils # Man Lymphocytes # (Manual) Monocytes # (Manual) POC ABG pH ABG pH POC ABG pCO2 POC ABG pO2 ABG pO2 76.3 L ABG HCO3 19.1 L ABG Base Excess -5.8 L ABG Hemoglobin 10.9 L Oxyhemoglobin 93.4 L Sodium Potassium 5.1 H D Chloride 109.2 H Carbon Dioxide 17 L BUN 38 H Creatinine 1.8 H D Glucose 104 H POC Glucose Calcium 7.4 L Phosphorus 5.60 H Magnesium Direct Bilirubin AST Alkaline Phosphatase C-Reactive Protein Serum Total Protein Total Protein Albumin Prealbumin Wfdmk-2-Kzjqnhhdd Kdbxx-1-Lggpqtcdw Gamma Globulins PEP Interpretation Triglycerides Urine pH Urine Creatinine Urine Total Protein Digoxin Crossmatch 10/14/19 10/15/19 10/15/19 23:46 04:32 04:32 WBC 15.5 H RBC 2.89 L Hgb 8.8 L Hct 27.3 L D MCHC RDW 16.6 H Plt Count Lymph % (Auto) [place] % (Auto) Lymph # [place] # Seg Neutrophils % Seg Neuts % (Manual) Lymphocytes % (Manual) Seg Neutrophils # Seg Neutrophils # Man Lymphocytes # (Manual) Monocytes # (Manual) POC ABG pH ABG pH POC ABG pCO2 POC ABG pO2 ABG pO2 ABG HCO3 ABG Base Excess ABG Hemoglobin Oxyhemoglobin Sodium 147 H Potassium Chloride 114.0 H Carbon Dioxide 19 L BUN 42 H Creatinine Glucose 112 H POC Glucose 113 H Calcium 7.3 L Phosphorus Magnesium Direct Bilirubin AST 72 H Alkaline Phosphatase C-Reactive Protein 30.60 H Serum Total Protein Total Protein 4.0 L D Albumin 1.7 L Prealbumin 0.030 L Kswvr-2-Lupyvuypv Icvkx-9-Vlnssfjqo Gamma Globulins PEP Interpretation Triglycerides Urine pH Urine Creatinine Urine Total Protein Digoxin Crossmatch 10/15/19 10/15/19 10/15/19 05:30 12:08 17:23 WBC RBC Hgb Hct MCHC RDW Plt Count Lymph % (Auto) [place] % (Auto) Lymph # [place] # Seg Neutrophils % Seg Neuts % (Manual) Lymphocytes % (Manual) Seg Neutrophils # Seg Neutrophils # Man Lymphocytes # (Manual) Monocytes # (Manual) POC ABG pH ABG pH 7.296 L POC ABG pCO2 POC ABG pO2 ABG pO2 114.7 H ABG HCO3 ABG Base Excess -3.7 L ABG Hemoglobin 8.9 L Oxyhemoglobin Sodium Potassium Chloride Carbon Dioxide BUN Creatinine Glucose POC Glucose 106 H 106 H Calcium Phosphorus Magnesium Direct Bilirubin AST Alkaline Phosphatase C-Reactive Protein Serum Total Protein Total Protein Albumin Prealbumin Mhjsn-0-Bmkcccxqh Rkwfq-1-Xnhigfdpr Gamma Globulins PEP Interpretation Triglycerides Urine pH Urine Creatinine Urine Total Protein Digoxin Crossmatch 10/16/19 10/16/19 10/16/19 00:07 04:44 05:24 WBC RBC Hgb Hct MCHC RDW Plt Count Lymph % (Auto) [place] % (Auto) Lymph # [place] # Seg Neutrophils % Seg Neuts % (Manual) Lymphocytes % (Manual) Seg Neutrophils # Seg Neutrophils # Man Lymphocytes # (Manual) Monocytes # (Manual) POC ABG pH ABG pH POC ABG pCO2 POC ABG pO2 ABG pO2 ABG HCO3 ABG Base Excess ABG Hemoglobin Oxyhemoglobin Sodium 150 H Potassium Chloride 115.8 H Carbon Dioxide BUN 35 H Creatinine Glucose 129 H POC Glucose 119 H 129 H Calcium 7.3 L Phosphorus 1.80 L D Magnesium Direct Bilirubin AST Alkaline Phosphatase C-Reactive Protein Serum Total Protein Total Protein Albumin Prealbumin Cemci-0-Yaquzfnnd Hreoc-0-Hkyhebyyt Gamma Globulins PEP Interpretation Triglycerides Urine pH Urine Creatinine Urine Total Protein Digoxin Crossmatch 10/16/19 10/16/19 10/16/19 06:53 09:20 11:58 WBC 14.6 H RBC 2.70 L Hgb 8.1 L Hct 25.2 L MCHC RDW 16.7 H Plt Count Lymph % (Auto) [place] % (Auto) Lymph # [place] # Seg Neutrophils % Seg Neuts % (Manual) 79.0 H Lymphocytes % (Manual) 4.0 L Seg Neutrophils # Seg Neutrophils # Man 11.5 H Lymphocytes # (Manual) 0.6 L Monocytes # (Manual) POC ABG pH ABG pH POC ABG pCO2 47.0 H POC ABG pO2 ABG pO2 ABG HCO3 ABG Base Excess ABG Hemoglobin Oxyhemoglobin Sodium Potassium Chloride Carbon Dioxide BUN Creatinine Glucose POC Glucose Calcium Phosphorus Magnesium Direct Bilirubin AST Alkaline Phosphatase C-Reactive Protein Serum Total Protein Total Protein Albumin Prealbumin Yizoo-5-Ipzchnbyf Evciz-1-Auskiyvwh Gamma Globulins PEP Interpretation Triglycerides Urine pH Urine Creatinine Urine Total Protein Digoxin Crossmatch See Detail 10/16/19 10/16/19 10/16/19 15:23 17:50 23:58 WBC RBC Hgb Hct MCHC RDW Plt Count Lymph % (Auto) [place] % (Auto) Lymph # [place] # Seg Neutrophils % Seg Neuts % (Manual) Lymphocytes % (Manual) Seg Neutrophils # Seg Neutrophils # Man Lymphocytes # (Manual) Monocytes # (Manual) POC ABG pH ABG pH POC ABG pCO2 POC ABG pO2 ABG pO2 ABG HCO3 ABG Base Excess ABG Hemoglobin Oxyhemoglobin Sodium Potassium Chloride Carbon Dioxide BUN Creatinine Glucose POC Glucose 221 H 201 H 179 H Calcium Phosphorus Magnesium Direct Bilirubin AST Alkaline Phosphatase C-Reactive Protein Serum Total Protein Total Protein Albumin Prealbumin Bjwbj-4-Vlxairgns Zaxab-5-Tzrmyvtke Gamma Globulins PEP Interpretation Triglycerides Urine pH Urine Creatinine Urine Total Protein Digoxin Crossmatch 10/17/19 10/17/19 10/17/19 04:08 04:08 05:41 WBC 22.3 H RBC 3.35 L Hgb 10.0 L Hct 31.2 L D MCHC RDW 16.1 H Plt Count Lymph % (Auto) [place] % (Auto) Lymph # [place] # Seg Neutrophils % Seg Neuts % (Manual) Lymphocytes % (Manual) Seg Neutrophils # Seg Neutrophils # Man Lymphocytes # (Manual) Monocytes # (Manual) POC ABG pH 7.310 L ABG pH POC ABG pCO2 52.8 H POC ABG pO2 70 L ABG pO2 ABG HCO3 ABG Base Excess ABG Hemoglobin Oxyhemoglobin Sodium 147 H Potassium Chloride 114.9 H Carbon Dioxide BUN 36 H Creatinine Glucose 165 H POC Glucose Calcium 6.9 L Phosphorus 2.20 L D Magnesium Direct Bilirubin AST Alkaline Phosphatase C-Reactive Protein Serum Total Protein Total Protein Albumin Prealbumin Mqbuu-7-Gpuejnhfe Jaqrp-9-Txelvejdl Gamma Globulins PEP Interpretation Triglycerides Urine pH Urine Creatinine Urine Total Protein Digoxin Crossmatch 10/17/19 10/17/19 10/17/19 05:42 11:33 18:17 WBC RBC Hgb Hct MCHC RDW Plt Count Lymph % (Auto) [place] % (Auto) Lymph # [place] # Seg Neutrophils % Seg Neuts % (Manual) Lymphocytes % (Manual) Seg Neutrophils # Seg Neutrophils # Man Lymphocytes # (Manual) Monocytes # (Manual) POC ABG pH ABG pH POC ABG pCO2 POC ABG pO2 ABG pO2 ABG HCO3 ABG Base Excess ABG Hemoglobin Oxyhemoglobin Sodium Potassium Chloride Carbon Dioxide BUN Creatinine Glucose POC Glucose 149 H 154 H 163 H Calcium Phosphorus Magnesium Direct Bilirubin AST Alkaline Phosphatase C-Reactive Protein Serum Total Protein Total Protein Albumin Prealbumin Fyebi-8-Rpnxasykf Enioe-8-Kmcynobdm Gamma Globulins PEP Interpretation Triglycerides Urine pH Urine Creatinine Urine Total Protein Digoxin Crossmatch 10/17/19 10/18/19 10/18/19 23:34 03:29 04:50 WBC RBC Hgb Hct MCHC RDW Plt Count Lymph % (Auto) [place] % (Auto) Lymph # [place] # Seg Neutrophils % Seg Neuts % (Manual) Lymphocytes % (Manual) Seg Neutrophils # Seg Neutrophils # Man Lymphocytes # (Manual) Monocytes # (Manual) POC ABG pH ABG pH POC ABG pCO2 POC ABG pO2 ABG pO2 78.8 L ABG HCO3 ABG Base Excess ABG Hemoglobin 8.8 L Oxyhemoglobin Sodium Potassium Chloride 111.8 H Carbon Dioxide BUN 27 H Creatinine 0.6 L Glucose 140 H POC Glucose 135 H Calcium 7.1 L Phosphorus 1.80 L Magnesium Direct Bilirubin AST Alkaline Phosphatase C-Reactive Protein Serum Total Protein Total Protein Albumin Prealbumin Tcpjb-2-Olxuuwbzy Dtlgw-9-Hkcheeqke Gamma Globulins PEP Interpretation Triglycerides Urine pH Urine Creatinine Urine Total Protein Digoxin Crossmatch 10/18/19 10/18/19 10/18/19 05:45 11:19 18:26 WBC RBC Hgb Hct MCHC RDW Plt Count Lymph % (Auto) [place] % (Auto) Lymph # [place] # Seg Neutrophils % Seg Neuts % (Manual) Lymphocytes % (Manual) Seg Neutrophils # Seg Neutrophils # Man Lymphocytes # (Manual) Monocytes # (Manual) POC ABG pH ABG pH POC ABG pCO2 POC ABG pO2 ABG pO2 ABG HCO3 ABG Base Excess ABG Hemoglobin Oxyhemoglobin Sodium Potassium Chloride Carbon Dioxide BUN Creatinine Glucose POC Glucose 145 H 152 H 125 H Calcium Phosphorus Magnesium Direct Bilirubin AST Alkaline Phosphatase C-Reactive Protein Serum Total Protein Total Protein Albumin Prealbumin Sopxm-4-Ocforhxva Rosdv-2-Fjnyuikdd Gamma Globulins PEP Interpretation Triglycerides Urine pH Urine Creatinine Urine Total Protein Digoxin Crossmatch 10/18/19 10/19/19 10/19/19 23:27 04:21 04:21 WBC RBC Hgb Hct MCHC RDW Plt Count Lymph % (Auto) [place] % (Auto) Lymph # [place] # Seg Neutrophils % Seg Neuts % (Manual) Lymphocytes % (Manual) Seg Neutrophils # Seg Neutrophils # Man Lymphocytes # (Manual) Monocytes # (Manual) POC ABG pH ABG pH POC ABG pCO2 POC ABG pO2 ABG pO2 ABG HCO3 ABG Base Excess ABG Hemoglobin Oxyhemoglobin Sodium Potassium Chloride 108.4 H Carbon Dioxide BUN 22 H Creatinine 0.5 L Glucose 123 H POC Glucose 127 H Calcium 7.4 L Phosphorus 1.80 L Magnesium Direct Bilirubin AST Alkaline Phosphatase C-Reactive Protein Serum Total Protein Total Protein Albumin Prealbumin Xqkjx-9-Iwcqjxbfa Xrhil-5-Fzokioafa Gamma Globulins PEP Interpretation Triglycerides Urine pH Urine Creatinine Urine Total Protein Digoxin 0.7 L Crossmatch 10/19/19 10/19/19 10/19/19 05:00 05:35 11:26 WBC RBC Hgb Hct MCHC RDW Plt Count Lymph % (Auto) [place] % (Auto) Lymph # [place] # Seg Neutrophils % Seg Neuts % (Manual) Lymphocytes % (Manual) Seg Neutrophils # Seg Neutrophils # Man Lymphocytes # (Manual) Monocytes # (Manual) POC ABG pH ABG pH 7.456 H POC ABG pCO2 POC ABG pO2 ABG pO2 78.8 L ABG HCO3 ABG Base Excess ABG Hemoglobin 5.6 L Oxyhemoglobin Sodium Potassium Chloride Carbon Dioxide BUN Creatinine Glucose POC Glucose 124 H 111 H Calcium Phosphorus Magnesium Direct Bilirubin AST Alkaline Phosphatase C-Reactive Protein Serum Total Protein Total Protein Albumin Prealbumin Ikzle-7-Kzdmdsodh Edxfl-4-Mhypaomgn Gamma Globulins PEP Interpretation Triglycerides Urine pH Urine Creatinine Urine Total Protein Digoxin Crossmatch 10/19/19 10/20/19 10/20/19 23:23 04:50 05:17 WBC RBC Hgb Hct MCHC RDW Plt Count Lymph % (Auto) [place] % (Auto) Lymph # [place] # Seg Neutrophils % Seg Neuts % (Manual) Lymphocytes % (Manual) Seg Neutrophils # Seg Neutrophils # Man Lymphocytes # (Manual) Monocytes # (Manual) POC ABG pH ABG pH POC ABG pCO2 POC ABG pO2 ABG pO2 ABG HCO3 ABG Base Excess ABG Hemoglobin Oxyhemoglobin Sodium Potassium Chloride 108.1 H Carbon Dioxide BUN Creatinine 0.4 L Glucose 134 H POC Glucose 129 H 123 H Calcium 7.1 L Phosphorus Magnesium Direct Bilirubin AST Alkaline Phosphatase C-Reactive Protein Serum Total Protein Total Protein Albumin Prealbumin Eilwk-4-Ycizvkuqe Ntjgt-5-Jbhjnmdyq Gamma Globulins PEP Interpretation Triglycerides Urine pH Urine Creatinine Urine Total Protein Digoxin Crossmatch 10/20/19 10/20/19 10/21/19 11:40 19:06 05:08 WBC RBC Hgb Hct MCHC RDW Plt Count Lymph % (Auto) [place] % (Auto) Lymph # [place] # Seg Neutrophils % Seg Neuts % (Manual) Lymphocytes % (Manual) Seg Neutrophils # Seg Neutrophils # Man Lymphocytes # (Manual) Monocytes # (Manual) POC ABG pH ABG pH POC ABG pCO2 POC ABG pO2 ABG pO2 ABG HCO3 ABG Base Excess ABG Hemoglobin Oxyhemoglobin Sodium Potassium Chloride Carbon Dioxide BUN Creatinine Glucose POC Glucose 139 H 117 H 131 H Calcium Phosphorus Magnesium Direct Bilirubin AST Alkaline Phosphatase C-Reactive Protein Serum Total Protein Total Protein Albumin Prealbumin Jgive-1-Ozxifjcts Cijqj-6-Qpavqcmqg Gamma Globulins PEP Interpretation Triglycerides Urine pH Urine Creatinine Urine Total Protein Digoxin Crossmatch 10/21/19 10/21/19 10/21/19 05:30 12:04 17:31 WBC RBC Hgb Hct MCHC RDW Plt Count Lymph % (Auto) [place] % (Auto) Lymph # [place] # Seg Neutrophils % Seg Neuts % (Manual) Lymphocytes % (Manual) Seg Neutrophils # Seg Neutrophils # Man Lymphocytes # (Manual) Monocytes # (Manual) POC ABG pH ABG pH POC ABG pCO2 POC ABG pO2 ABG pO2 ABG HCO3 ABG Base Excess ABG Hemoglobin Oxyhemoglobin Sodium Potassium Chloride 107.8 H Carbon Dioxide BUN Creatinine 0.5 L Glucose 119 H POC Glucose 119 H 110 H Calcium 7.6 L Phosphorus Magnesium Direct Bilirubin AST Alkaline Phosphatase C-Reactive Protein Serum Total Protein Total Protein Albumin Prealbumin Igngm-2-Pqbqesrre Pvtjw-4-Csxpzzers Gamma Globulins PEP Interpretation Triglycerides Urine pH Urine Creatinine Urine Total Protein Digoxin Crossmatch 10/22/19 10/22/19 10/22/19 05:14 05:37 12:07 WBC RBC Hgb Hct MCHC RDW Plt Count Lymph % (Auto) [place] % (Auto) Lymph # [place] # Seg Neutrophils % Seg Neuts % (Manual) Lymphocytes % (Manual) Seg Neutrophils # Seg Neutrophils # Man Lymphocytes # (Manual) Monocytes # (Manual) POC ABG pH ABG pH POC ABG pCO2 POC ABG pO2 ABG pO2 ABG HCO3 ABG Base Excess ABG Hemoglobin Oxyhemoglobin Sodium Potassium Chloride Carbon Dioxide BUN Creatinine 0.5 L Glucose 116 H POC Glucose 110 H 126 H Calcium 7.7 L Phosphorus Magnesium Direct Bilirubin AST Alkaline Phosphatase C-Reactive Protein Serum Total Protein Total Protein Albumin Prealbumin Vtlpz-1-Tumiofmeo Nqddb-4-Lbkkicdxm Gamma Globulins PEP Interpretation Triglycerides Urine pH Urine Creatinine Urine Total Protein Digoxin Crossmatch 10/22/19 10/22/19 10/23/19 18:36 23:19 04:39 WBC RBC Hgb Hct MCHC RDW Plt Count Lymph % (Auto) [place] % (Auto) Lymph # [place] # Seg Neutrophils % Seg Neuts % (Manual) Lymphocytes % (Manual) Seg Neutrophils # Seg Neutrophils # Man Lymphocytes # (Manual) Monocytes # (Manual) POC ABG pH ABG pH POC ABG pCO2 POC ABG pO2 ABG pO2 ABG HCO3 ABG Base Excess ABG Hemoglobin Oxyhemoglobin Sodium Potassium Chloride Carbon Dioxide BUN Creatinine Glucose POC Glucose 120 H 127 H 112 H Calcium Phosphorus Magnesium Direct Bilirubin AST Alkaline Phosphatase C-Reactive Protein Serum Total Protein Total Protein Albumin Prealbumin Kcjdt-2-Zrjiqkwof Ofplu-8-Ogvlhveqk Gamma Globulins PEP Interpretation Triglycerides Urine pH Urine Creatinine Urine Total Protein Digoxin Crossmatch 10/23/19 10/23/19 10/23/19 04:47 05:15 10:44 WBC 18.3 H RBC 2.33 L Hgb 7.0 L Hct 21.5 L MCHC RDW 16.2 H Plt Count Lymph % (Auto) 4.9 L [place] % (Auto) 8.1 H Lymph # 0.9 L [place] # 1.5 H Seg Neutrophils % 86.7 H Seg Neuts % (Manual) Lymphocytes % (Manual) Seg Neutrophils # 15.9 H Seg Neutrophils # Man Lymphocytes # (Manual) Monocytes # (Manual) POC ABG pH ABG pH POC ABG pCO2 POC ABG pO2 ABG pO2 68.9 L ABG HCO3 28.7 H ABG Base Excess 3.4 H ABG Hemoglobin 6.6 L Oxyhemoglobin 94.1 L Sodium Potassium Chloride Carbon Dioxide BUN Creatinine 0.5 L Glucose 165 H POC Glucose Calcium 7.4 L Phosphorus Magnesium Direct Bilirubin AST Alkaline Phosphatase C-Reactive Protein Serum Total Protein Total Protein Albumin Prealbumin Dzxjt-5-Sabmraziz Bwcxw-3-Rcypulaba Gamma Globulins PEP Interpretation Triglycerides Urine pH Urine Creatinine Urine Total Protein Digoxin Crossmatch 10/23/19 10/23/19 10/23/19 10:44 11:46 11:50 WBC RBC Hgb Hct MCHC RDW Plt Count Lymph % (Auto) [place] % (Auto) Lymph # [place] # Seg Neutrophils % Seg Neuts % (Manual) Lymphocytes % (Manual) Seg Neutrophils # Seg Neutrophils # Man Lymphocytes # (Manual) Monocytes # (Manual) POC ABG pH ABG pH POC ABG pCO2 POC ABG pO2 ABG pO2 ABG HCO3 ABG Base Excess ABG Hemoglobin Oxyhemoglobin Sodium Potassium Chloride Carbon Dioxide BUN Creatinine Glucose POC Glucose 138 H Calcium Phosphorus Magnesium Direct Bilirubin 0.7 H AST Alkaline Phosphatase C-Reactive Protein Serum Total Protein Total Protein 4.5 L Albumin 1.2 L Prealbumin Zhtgv-4-Kdefxjtvq Mllsl-8-Bngldsdbl Gamma Globulins PEP Interpretation Triglycerides Urine pH Urine Creatinine Urine Total Protein Digoxin Crossmatch See Detail 10/23/19 10/24/19 10/24/19 17:53 00:07 05:05 WBC RBC Hgb Hct MCHC RDW Plt Count Lymph % (Auto) [place] % (Auto) Lymph # [place] # Seg Neutrophils % Seg Neuts % (Manual) Lymphocytes % (Manual) Seg Neutrophils # Seg Neutrophils # Man Lymphocytes # (Manual) Monocytes # (Manual) POC ABG pH ABG pH POC ABG pCO2 POC ABG pO2 ABG pO2 ABG HCO3 ABG Base Excess ABG Hemoglobin Oxyhemoglobin Sodium Potassium 3.5 L Chloride Carbon Dioxide BUN Creatinine 0.5 L Glucose 116 H POC Glucose 137 H 110 H Calcium 8.0 L Phosphorus Magnesium Direct Bilirubin AST Alkaline Phosphatase C-Reactive Protein Serum Total Protein Total Protein Albumin Prealbumin Hkxuo-5-[place] Wetud-1-Bxitgwvpa Gamma Globulins PEP Interpretation Triglycerides Urine pH Urine Creatinine Urine Total Protein Digoxin Crossmatch 10/24/19 10/24/19 10/24/19 05:05 11:56 13:00 WBC 13.0 H RBC 2.73 L Hgb 8.0 L Hct 24.2 L MCHC RDW 17.9 H Plt Count Lymph % (Auto) 7.0 L [place] % (Auto) 9.5 H Lymph # 0.9 L [place] # 1.2 H Seg Neutrophils % 82.7 H Seg Neuts % (Manual) Lymphocytes % (Manual) Seg Neutrophils # 10.7 H Seg Neutrophils # Man Lymphocytes # (Manual) Monocytes # (Manual) POC ABG pH ABG pH POC ABG pCO2 POC ABG pO2 ABG pO2 ABG HCO3 ABG Base Excess ABG Hemoglobin Oxyhemoglobin Sodium Potassium Chloride Carbon Dioxide BUN Creatinine Glucose POC Glucose 159 H Calcium Phosphorus Magnesium Direct Bilirubin AST Alkaline Phosphatase C-Reactive Protein Serum Total Protein Total Protein Albumin Prealbumin Yjofc-4-Etxtrwhfk Ldnze-8-Vnswmlyri Gamma Globulins PEP Interpretation Triglycerides 216 H Urine pH Urine Creatinine Urine Total Protein Digoxin Crossmatch 10/24/19 10/24/19 10/25/19 17:42 23:45 04:19 WBC RBC Hgb Hct MCHC RDW Plt Count Lymph % (Auto) [place] % (Auto) Lymph # [place] # Seg Neutrophils % Seg Neuts % (Manual) Lymphocytes % (Manual) Seg Neutrophils # Seg Neutrophils # Man Lymphocytes # (Manual) Monocytes # (Manual) POC ABG pH ABG pH POC ABG pCO2 POC ABG pO2 ABG pO2 ABG HCO3 ABG Base Excess ABG Hemoglobin Oxyhemoglobin Sodium 147 H Potassium Chloride Carbon Dioxide 33 H BUN Creatinine 0.5 L Glucose 111 H POC Glucose 120 H 116 H Calcium Phosphorus Magnesium Direct Bilirubin AST Alkaline Phosphatase C-Reactive Protein Serum Total Protein Total Protein 5.7 L D Albumin 2.5 L Prealbumin Ekzjc-1-Rwvsbiyps Intup-2-Ortrqhbsh Gamma Globulins PEP Interpretation Triglycerides 230 H Urine pH Urine Creatinine Urine Total Protein Digoxin Crossmatch 10/25/19 10/25/19 10/25/19 04:19 05:31 12:20 WBC RBC 2.69 L Hgb 8.1 L Hct 23.9 L MCHC RDW 17.3 H Plt Count Lymph % (Auto) [place] % (Auto) Lymph # [place] # Seg Neutrophils % Seg Neuts % (Manual) Lymphocytes % (Manual) Seg Neutrophils # Seg Neutrophils # Man Lymphocytes # (Manual) Monocytes # (Manual) POC ABG pH ABG pH POC ABG pCO2 POC ABG pO2 ABG pO2 ABG HCO3 ABG Base Excess ABG Hemoglobin Oxyhemoglobin Sodium Potassium Chloride Carbon Dioxide BUN Creatinine Glucose POC Glucose 126 H 114 H Calcium Phosphorus Magnesium Direct Bilirubin AST Alkaline Phosphatase C-Reactive Protein Serum Total Protein Total Protein Albumin Prealbumin Axpdl-6-Ewhtuylrm Rbnso-0-Dmrfoshnc Gamma Globulins PEP Interpretation Triglycerides Urine pH Urine Creatinine Urine Total Protein Digoxin Crossmatch 10/25/19 10/25/19 10/26/19 18:30 23:09 06:15 WBC RBC Hgb Hct MCHC RDW Plt Count Lymph % (Auto) [place] % (Auto) Lymph # [place] # Seg Neutrophils % Seg Neuts % (Manual) Lymphocytes % (Manual) Seg Neutrophils # Seg Neutrophils # Man Lymphocytes # (Manual) Monocytes # (Manual) POC ABG pH ABG pH POC ABG pCO2 POC ABG pO2 ABG pO2 ABG HCO3 ABG Base Excess ABG Hemoglobin Oxyhemoglobin Sodium Potassium 3.5 L Chloride Carbon Dioxide BUN Creatinine 0.5 L Glucose 112 H POC Glucose 121 H 107 H Calcium 8.3 L Phosphorus Magnesium Direct Bilirubin AST Alkaline Phosphatase 148 H C-Reactive Protein Serum Total Protein Total Protein 5.9 L Albumin 2.4 L Prealbumin Gcqpg-9-Wbuvahgza Gwrav-0-Inoznkfvd Gamma Globulins PEP Interpretation Triglycerides Urine pH Urine Creatinine Urine Total Protein Digoxin Crossmatch 10/26/19 10/26/19 10/26/19 06:15 12:21 17:35 WBC RBC Hgb Hct MCHC RDW Plt Count Lymph % (Auto) [place] % (Auto) Lymph # [place] # Seg Neutrophils % Seg Neuts % (Manual) Lymphocytes % (Manual) Seg Neutrophils # Seg Neutrophils # Man Lymphocytes # (Manual) Monocytes # (Manual) POC ABG pH ABG pH POC ABG pCO2 POC ABG pO2 ABG pO2 ABG HCO3 ABG Base Excess ABG Hemoglobin Oxyhemoglobin Sodium Potassium Chloride Carbon Dioxide BUN Creatinine Glucose POC Glucose 134 H 141 H Calcium Phosphorus Magnesium Direct Bilirubin AST Alkaline Phosphatase C-Reactive Protein Serum Total Protein Total Protein Albumin Prealbumin Uiunw-5-Qgyjelhnm Mefhr-7-Ykfvrsgad Gamma Globulins PEP Interpretation Triglycerides 185 H Urine pH Urine Creatinine Urine Total Protein Digoxin Crossmatch 10/26/19 10/27/19 10/27/19 Unknown 04:30 11:33 WBC RBC Hgb Hct MCHC RDW Plt Count Lymph % (Auto) [place] % (Auto) Lymph # [place] # Seg Neutrophils % Seg Neuts % (Manual) Lymphocytes % (Manual) Seg Neutrophils # Seg Neutrophils # Man Lymphocytes # (Manual) Monocytes # (Manual) POC ABG pH ABG pH POC ABG pCO2 POC ABG pO2 ABG pO2 ABG HCO3 ABG Base Excess ABG Hemoglobin Oxyhemoglobin Sodium Potassium 3.2 L Chloride Carbon Dioxide BUN 23 H Creatinine 0.6 L Glucose 130 H POC Glucose 131 H Calcium 7.9 L Phosphorus Magnesium Direct Bilirubin AST Alkaline Phosphatase C-Reactive Protein Serum Total Protein Total Protein Albumin Prealbumin Lsfqc-4-Ggnhcwgxe Yakjm-6-Rmgwpzhwz Gamma Globulins PEP Interpretation Triglycerides Urine pH 9.0 H Urine Creatinine Urine Total Protein Digoxin Crossmatch 10/27/19 10/28/19 10/28/19 17:45 05:25 05:49 WBC RBC 2.85 L Hgb 8.3 L Hct 26.8 L MCHC 31 L RDW 17.4 H Plt Count Lymph % (Auto) 8.9 L [place] % (Auto) 14.3 H Lymph # 0.8 L [place] # 1.3 H Seg Neutrophils % 76.5 H Seg Neuts % (Manual) Lymphocytes % (Manual) Seg Neutrophils # Seg Neutrophils # Man Lymphocytes # (Manual) Monocytes # (Manual) POC ABG pH ABG pH POC ABG pCO2 POC ABG pO2 ABG pO2 ABG HCO3 ABG Base Excess ABG Hemoglobin Oxyhemoglobin Sodium Potassium Chloride Carbon Dioxide BUN Creatinine Glucose POC Glucose 121 H 120 H Calcium Phosphorus Magnesium Direct Bilirubin AST Alkaline Phosphatase C-Reactive Protein Serum Total Protein Total Protein Albumin Prealbumin Qzivi-6-Jgmoiuhdz Blruy-4-Syyttpmfq Gamma Globulins PEP Interpretation Triglycerides Urine pH Urine Creatinine Urine Total Protein Digoxin Crossmatch 10/28/19 10/28/19 10/28/19 07:19 12:07 18:21 WBC RBC Hgb Hct MCHC RDW Plt Count Lymph % (Auto) [place] % (Auto) Lymph # [place] # Seg Neutrophils % Seg Neuts % (Manual) Lymphocytes % (Manual) Seg Neutrophils # Seg Neutrophils # Man Lymphocytes # (Manual) Monocytes # (Manual) POC ABG pH ABG pH POC ABG pCO2 POC ABG pO2 ABG pO2 ABG HCO3 ABG Base Excess ABG Hemoglobin Oxyhemoglobin Sodium Potassium Chloride Carbon Dioxide BUN 23 H Creatinine 0.5 L Glucose 129 H POC Glucose 127 H 130 H Calcium 8.0 L Phosphorus Magnesium Direct Bilirubin AST Alkaline Phosphatase C-Reactive Protein Serum Total Protein Total Protein Albumin Prealbumin Naxlk-4-Depspiyqk Jjmph-0-Vskumrqhw Gamma Globulins PEP Interpretation Triglycerides Urine pH Urine Creatinine Urine Total Protein Digoxin Crossmatch 10/28/19 10/29/19 10/29/19 23:30 05:30 05:30 WBC 11.2 H RBC 3.36 L Hgb 9.7 L Hct 29.4 L MCHC RDW 16.7 H Plt Count Lymph % (Auto) [place] % (Auto) 16.0 H Lymph # [place] # 1.8 H Seg Neutrophils % 70.2 H Seg Neuts % (Manual) Lymphocytes % (Manual) Seg Neutrophils # 7.9 H Seg Neutrophils # Man Lymphocytes # (Manual) Monocytes # (Manual) POC ABG pH ABG pH POC ABG pCO2 POC ABG pO2 ABG pO2 ABG HCO3 ABG Base Excess ABG Hemoglobin Oxyhemoglobin Sodium Potassium Chloride Carbon Dioxide BUN 23 H Creatinine 0.5 L Glucose POC Glucose 130 H Calcium 8.3 L Phosphorus Magnesium Direct Bilirubin AST Alkaline Phosphatase C-Reactive Protein Serum Total Protein Total Protein Albumin Prealbumin Nqjby-6-Vojjwjhbb [place]ulga-1-Ixllhwegj Gamma Globulins PEP Interpretation Triglycerides Urine pH Urine Creatinine Urine Total Protein Digoxin Crossmatch 10/29/19 10/29/19 10/29/19 05:52 13:10 18:02 WBC RBC Hgb Hct MCHC RDW Plt Count Lymph % (Auto) [place] % (Auto) Lymph # [place] # Seg Neutrophils % Seg Neuts % (Manual) Lymphocytes % (Manual) Seg Neutrophils # Seg Neutrophils # Man Lymphocytes # (Manual) Monocytes # (Manual) POC ABG pH ABG pH POC ABG pCO2 POC ABG pO2 ABG pO2 ABG HCO3 ABG Base Excess ABG Hemoglobin Oxyhemoglobin Sodium Potassium Chloride Carbon Dioxide BUN Creatinine Glucose POC Glucose 111 H 140 H 140 H Calcium Phosphorus Magnesium Direct Bilirubin AST Alkaline Phosphatase C-Reactive Protein Serum Total Protein Total Protein Albumin Prealbumin Jepqr-5-Kxhfebfgo Igmnz-9-Liugauppm Gamma Globulins PEP Interpretation Triglycerides Urine pH Urine Creatinine Urine Total Protein Digoxin Crossmatch 10/29/19 10/30/19 10/30/19 23:58 01:05 05:15 WBC RBC Hgb Hct MCHC RDW Plt Count Lymph % (Auto) [place] % (Auto) Lymph # [place] # Seg Neutrophils % Seg Neuts % (Manual) Lymphocytes % (Manual) Seg Neutrophils # Seg Neutrophils # Man Lymphocytes # (Manual) Monocytes # (Manual) POC ABG pH ABG pH POC ABG pCO2 62.0 H POC ABG pO2 168 H ABG pO2 ABG HCO3 ABG Base Excess ABG Hemoglobin Oxyhemoglobin Sodium 147 H Potassium Chloride 107.8 H Carbon Dioxide BUN 26 H Creatinine 0.5 L Glucose 139 H POC Glucose 161 H Calcium Phosphorus Magnesium 2.40 H Direct Bilirubin AST Alkaline Phosphatase C-Reactive Protein Serum Total Protein Total Protein Albumin Prealbumin Ytkiq-7-Iilzlqatf Surmh-0-Jzowcaqaz Gamma Globulins PEP Interpretation Triglycerides Urine pH Urine Creatinine Urine Total Protein Digoxin Crossmatch 10/30/19 10/30/19 10/30/19 05:15 06:32 09:44 WBC 13.8 H RBC 3.59 L Hgb 10.1 L Hct 32.4 L MCHC 31 L RDW 17.4 H Plt Count Lymph % (Auto) 11.2 L [place] % (Auto) 13.6 H Lymph # [place] # 1.9 H Seg Neutrophils % 75.1 H Seg Neuts % (Manual) Lymphocytes % (Manual) Seg Neutrophils # 10.4 H Seg Neutrophils # Man Lymphocytes # (Manual) Monocytes # (Manual) POC ABG pH ABG pH POC ABG pCO2 51.7 H POC ABG pO2 111 H ABG pO2 ABG HCO3 ABG Base Excess ABG Hemoglobin Oxyhemoglobin Sodium Potassium Chloride Carbon Dioxide BUN Creatinine Glucose POC Glucose 141 H Calcium Phosphorus Magnesium Direct Bilirubin AST Alkaline Phosphatase C-Reactive Protein Serum Total Protein Total Protein Albumin Prealbumin Swwsl-3-Xhexuuort Ggfla-7-Thvnlezlk Gamma Globulins PEP Interpretation Triglycerides Urine pH Urine Creatinine Urine Total Protein Digoxin Crossmatch 10/30/19 10/31/19 10/31/19 18:10 04:18 04:18 WBC 11.7 H RBC 3.11 L Hgb 9.0 L Hct 27.9 L MCHC RDW 17.1 H Plt Count Lymph % (Auto) [place] % (Auto) Lymph # [place] # Seg Neutrophils % Seg Neuts % (Manual) Lymphocytes % (Manual) Seg Neutrophils # Seg Neutrophils # Man Lymphocytes # (Manual) Monocytes # (Manual) POC ABG pH ABG pH POC ABG pCO2 POC ABG pO2 ABG pO2 ABG HCO3 ABG Base Excess ABG Hemoglobin Oxyhemoglobin Sodium 148 H Potassium Chloride 108.7 H Carbon Dioxide BUN 37 H Creatinine 0.7 L Glucose 102 H POC Glucose 131 H Calcium Phosphorus Magnesium Direct Bilirubin AST Alkaline Phosphatase C-Reactive Protein Serum Total Protein Total Protein Albumin Prealbumin Pkpnq-7-Kjqhqjqim Jyzbc-2-Psmqrppjy Gamma Globulins PEP Interpretation Triglycerides Urine pH Urine Creatinine Urine Total Protein Digoxin Crossmatch
--- NOTE | 2019-10-31 11:15 | Progress Note ---
Assessment and Plan Assessment and plan: Sepsis, recurrent. Patient with new fevers that have been persistent. ID restarted antibiotics. Etiology likely secondary to fluid collection/abscess in the abdomen and anastomotic leak. Follow-up blood culture, fungal blood culture, UA, urine culture, CXR ordered. Whitfield was removed and urinalysis sent. Given recent prolonged exposure to abx and TPN, at risk of MDR infections, ID started empiric Meropenem and Micafungin Dehiscence of closure of fascia * Went to OR for ex lap with closure of abdominal wall and wound vac placement (10/05) * Continued to decline with possible Air vs fluid, 10/10/19 IR went in and placed two drains, Noted to have possible fecal material * Returned to the OR 10/13/19 due to concern for intra-abdominal infection and was found to have with heavy contamination of abdomen patent had disruption of bowel anastomosis, abdominal washout, abthera placement and colon stapled transection and left bowel enterotomy from anastomosis completely open * Returned to OR on 10/16/19 for abdominal washout, Partial Omentectomy, Partial Colectomy, Colostomy Creation and AbThera Placement * Abdominal washout and closure - 10/22 * cont wound care * * Acute Respiratory failure with hypoxia -Extubated 10/25/19 - Re-intubated 10/30 -[employer] Installer following right sump drain felll out yesterday Surgeon following Left pneumothorax s/p chest tube placed 10/30 Left lower lobe pneumonia -Continue IV antibiotic -CTA chest showed left lower lobe consolidation with pleural effusion GUILLERMO on CRF -probably ATN due to sepsis -Improving, will monitor -SPEP and UPEP pending -No hydronephrosis on CT -Whitfield in place, monitor I/O's Severe Metabolic acidosis -Improved Acute Toxic Metabolic Encephalopathy/Delirium Tremens -Started on CIWA protocol due to hx of ETOH abuse, 6packs a day -Head CT scan negative for acute findings Acute blood loss anemia -H/H stable -Continue to monitor H&H and transfuse for hb<7 SVT, Atrial fib/flutter with RVR -treated with adenosine x1 -off amiodarone and cardizem drip. On oral amiodarone and IV Lopressor. -HR currently controlled -Cardiology following Hypotension -Off esmolol drip -s/p IV fluid boluses, BP stable Hypophosphatemia -will monitor level Hx of Hypertension -Stable Hyperlipidemia -stable Atypical chest pain -probably secondary to pneumonitis -troponin levels neg Hx of SD/CAD -s/p PCI of the circumflex and second vessel POBA of the distal LAD occlusion. Left ventricle fraction of 45-50%. Morbid obesity with BMI of 45.4 -Lifestyle modification recommended COPD -Stable -cont neb tx Moderate Protein calorie malnutrition secondary to surgery -On TPN -Nutrition following Tobacco abuse -Cessation recommended Morbid obesity with BMI of 45.4 -Lifestyle modification recommended DVT and GI ppx: Lovenox/PPI Disp: Prognosis guarded The high probability of a clinically significant, sudden or life threatening deterioration of the [respiratory] system(s) required my full and direct attention, intervention and personal management. The aggregate critical care time was [33] minutes. This time is in addition to time spent performing reported procedures but includes the following: [x] Data Review and interpretation [x] Patient assessment and monitoring of vital signs [x] Documentation [x] Medication orders and management History Interval history: Re-intubated yesterday 10/30 Hospitalist Physical - Physical exam Narrative exam: Gen: Not in acute distress, Intubated, sedated HEENT: Normocephalic, atraumatic Neck: supple, no JVD Heart: S1 and S2 reg, no murmurs, rubs or gallop Lungs: Chest tube on left, Abd: soft, NT, ostomy, wound vac, left drain Ext: No edema, no clubbing no cyanosis Neuro: Intubated, sedated - Constitutional Vitals: Temp Pulse Resp BP Pulse Ox 98.9 F 81 20 136/60 100 10/31/19 08:00 10/31/19 09:39 10/31/19 08:00 10/31/19 09:39 10/31/19 08:00 General appearance: Present: no acute distress, obese Results - Labs CBC & Chem 7: 10/31/19 04:18 10/31/19 04:18 Labs: Laboratory Last Values WBC 11.7 K/mm3 (4.5-11.0) H 10/31/19 04:18 RBC 3.11 M/mm3 (3.65-5.03) L 10/31/19 04:18 Hgb 9.0 gm/dl (11.8-15.2) L 10/31/19 04:18 Hct 27.9 % (35.5-45.6) L 10/31/19 04:18 MCV 90 fl (84-94) 10/31/19 04:18 MCH 29 pg (28-32) 10/31/19 04:18 MCHC 32 % (32-34) 10/31/19 04:18 RDW 17.1 % (13.2-15.2) H 10/31/19 04:18 Plt Count 308 K/mm3 (140-440) 10/31/19 04:18 Lymph % (Auto) 11.2 % (13.4-35.0) L 10/30/19 05:15 Winston % (Auto) 13.6 % (0.0-7.3) H 10/30/19 05:15 Eos % (Auto) 0.0 % (0.0-4.3) 10/30/19 05:15 Baso % (Auto) 0.1 % (0.0-1.8) 10/30/19 05:15 Lymph # 1.5 K/mm3 (1.2-5.4) 10/30/19 05:15 Winston # 1.9 K/mm3 (0.0-0.8) H 10/30/19 05:15 Eos # 0.0 K/mm3 (0.0-0.4) 10/30/19 05:15 Baso # 0.0 K/mm3 (0.0-0.1) 10/30/19 05:15 Add Manual Diff Complete 10/16/19 09:20 Total Counted 100 10/16/19 09:20 Seg Neutrophils % 75.1 % (40.0-70.0) H 10/30/19 05:15 Seg Neuts % (Manual) 79.0 % (40.0-70.0) H 10/16/19 09:20 Band Neutrophils % 12.0 % 10/16/19 09:20 Lymphocytes % (Manual) 4.0 % (13.4-35.0) L 10/16/19 09:20 Reactive Lymphs % (Man) 0 % 10/16/19 09:20 Monocytes % (Manual) 2.0 % (0.0-7.3) 10/16/19 09:20 Eosinophils % (Manual) 0 % (0.0-4.3) 10/16/19 09:20 Basophils % (Manual) 0 % (0.0-1.8) 10/16/19 09:20 Metamyelocytes % 2.0 % 10/16/19 09:20 Myelocytes % 1.0 % 10/16/19 09:20 Promyelocytes % 0 % 10/16/19 09:20 Blast Cells % 0 % 10/16/19 09:20 Nucleated RBC % Not Reportable 10/16/19 09:20 Seg Neutrophils # 10.4 K/mm3 (1.8-7.7) H 10/30/19 05:15 Seg Neutrophils # Man 11.5 K/mm3 (1.8-7.7) H 10/16/19 09:20 Band Neutrophils # 1.8 K/mm3 10/16/19 09:20 Lymphocytes # (Manual) 0.6 K/mm3 (1.2-5.4) L 10/16/19 09:20 Abs React Lymphs (Man) 0.0 K/mm3 10/16/19 09:20 Monocytes # (Manual) 0.3 K/mm3 (0.0-0.8) 10/16/19 09:20 Eosinophils # (Manual) 0.0 K/mm3 (0.0-0.4) 10/16/19 09:20 Basophils # (Manual) 0.0 K/mm3 (0.0-0.1) 10/16/19 09:20 Metamyelocytes # 0.3 K/mm3 10/16/19 09:20 Myelocytes # 0.1 K/mm3 10/16/19 09:20 Promyelocytes # 0.0 K/mm3 10/16/19 09:20 Blast Cells # 0.0 K/mm3 10/16/19 09:20 WBC Morphology Not Reportable 10/16/19 09:20 Hypersegmented Neuts Not Reportable 10/16/19 09:20 Hyposegmented Neuts Not Reportable 10/16/19 09:20 Hypogranular Neuts Not Reportable 10/16/19 09:20 Smudge Cells Not Reportable 10/16/19 09:20 Toxic Granulation Not Reportable 10/16/19 09:20 Toxic Vacuolation Not Reportable 10/16/19 09:20 Dohle Bodies Not Reportable 10/16/19 09:20 Pelger-Huet Anomaly Not Reportable 10/16/19 09:20 Andres Rods Not Reportable 10/16/19 09:20 Platelet Estimate Consistent w auto 10/16/19 09:20 Clumped Platelets Not Reportable 10/16/19 09:20 Plt Clumps, EDTA Not Reportable 10/16/19 09:20 Large Platelets Not Reportable 10/16/19 09:20 Giant Platelets Not Reportable 10/16/19 09:20 Platelet Satelliting Not Reportable 10/16/19 09:20 Plt Morphology Comment Not Reportable 10/16/19 09:20 RBC Morphology Not Reportable 10/16/19 09:20 Dimorphic RBCs Not Reportable 10/16/19 09:20 Polychromasia Few 10/16/19 09:20 Hypochromasia Few 10/16/19 09:20 Poikilocytosis Not Reportable 10/16/19 09:20 Anisocytosis Not Reportable 10/16/19 09:20 Microcytosis Not Reportable 10/16/19 09:20 Macrocytosis Not Reportable 10/16/19 09:20 Spherocytes Not Reportable 10/16/19 09:20 Pappenheimer Bodies Not Reportable 10/16/19 09:20 Sickle Cells Not Reportable 10/16/19 09:20 Target Cells Few 10/16/19 09:20 Tear Drop Cells Not Reportable 10/16/19 09:20 Ovalocytes Not Reportable 10/16/19 09:20 Helmet Cells Not Reportable 10/16/19 09:20 [place] Bodies Not Reportable 10/16/19 09:20 [place] Rings Not Reportable 10/16/19 09:20 [place] Cells Not Reportable 10/16/19 09:20 Bite Cells Not Reportable 10/16/19 09:20 Crenated Cell Not Reportable 10/16/19 09:20 Elliptocytes Not Reportable 10/16/19 09:20 Acanthocytes (Spur) Not Reportable 10/16/19 09:20 Rouleaux Not Reportable 10/16/19 09:20 Hemoglobin C Crystals Not Reportable 10/16/19 09:20 Schistocytes Not Reportable 10/16/19 09:20 Malaria parasites Not Reportable 10/16/19 09:20 Toni Bodies Not Reportable 10/16/19 09:20 Hem Pathologist Commnt No 10/16/19 09:20 POC ABG pH 7.396 (7.35-7.45) 10/30/19 09:44 ABG pH 7.390 pH Units (7.350-7.450) 10/23/19 04:47 POC ABG pCO2 51.7 (35-45) H 10/30/19 09:44 ABG pCO2 48.4 mm Hg 10/23/19 04:47 POC ABG pO2 111 (80-105) H 10/30/19 09:44 ABG pO2 68.9 mm Hg (80.0-90.0) L 10/23/19 04:47 POC ABG HCO3 31.7 (22-26 mml/L) 10/30/19 09:44 ABG HCO3 28.7 mmol/L (20.0-26.0) H 10/23/19 04:47 POC ABG Total CO2 33 (23-27mmol/L) 10/30/19 09:44 POC ABG O2 Sat 98 10/30/19 09:44 ABG O2 Saturation 96.6 % (95.0-99.0) 10/23/19 04:47 ABG O2 Content 8.8 (0.0-44) 10/23/19 04:47 POC ABG Base Excess 7 ((-2) - (+3)mmol/L) 10/30/19 09:44 ABG Base Excess 3.4 mmol/L (-2.0-3.0) H 10/23/19 04:47 ABG Hemoglobin 6.6 gm/dl (14.0-18.0) L 10/23/19 04:47 ABG Carboxyhemoglobin 2.1 % (0.0-5.0) 10/23/19 04:47 ABG Methemoglobin 0.5 % (0.0-1.5) 10/23/19 04:47 Oxyhemoglobin 94.1 % (95.0-99.0) L 10/23/19 04:47 FiO2 50 % 10/30/19 09:44 Sodium 148 mmol/L (137-145) H 10/31/19 04:18 Potassium 4.9 mmol/L (3.6-5.0) 10/31/19 04:18 Chloride 108.7 mmol/L (98-107) H 10/31/19 04:18 Carbon Dioxide 24 mmol/L (22-30) 10/31/19 04:18 Anion Gap 20 mmol/L 10/31/19 04:18 BUN 37 mg/dL (9-20) H 10/31/19 04:18 Creatinine 0.7 mg/dL (0.8-1.5) L 10/31/19 04:18 Estimated GFR > 60 ml/min 10/31/19 04:18 BUN/Creatinine Ratio 53 % 10/31/19 04:18 Glucose 102 mg/dL (75-100) H 10/31/19 04:18 POC Glucose 96 (70-105) 10/31/19 05:56 Hemoglobin A1c 5.7 % (4-6) 10/06/19 05:36 Lactic Acid 1.10 mmol/L (0.7-2.0) 10/13/19 04:20 Calcium 8.6 mg/dL (8.4-10.2) 10/31/19 04:18 Ionized Calcium 5.2 mg/dL (4.8-5.6) 10/18/19 07:41 Phosphorus 4.30 mg/dL (2.5-4.5) D 10/30/19 05:15 Magnesium 2.40 mg/dL (1.7-2.3) H 10/30/19 05:15 Total Bilirubin 1.10 mg/dL (0.1-1.2) 10/26/19 06:15 Direct Bilirubin 0.7 mg/dL (0-0.2) H 10/23/19 10:44 Indirect Bilirubin 0.1 mg/dL 10/23/19 10:44 AST 23 units/L (5-40) 10/26/19 06:15 ALT 13 units/L (7-56) 10/26/19 06:15 Alkaline Phosphatase 148 units/L (35-129) H 10/26/19 06:15 Ammonia 49.0 umol/L (25-60) 10/13/19 04:20 Troponin T < 0.010 ng/mL (0.00-0.029) 10/09/19 17:23 C-Reactive Protein 30.60 mg/dL (0.00-1.30) H 10/15/19 04:32 Serum Total Protein 5.2 g/dL (6.1-8.1) L 10/11/19 09:00 Total Protein 5.9 g/dL (6.3-8.2) L 10/26/19 06:15 Albumin 2.4 g/dL (3.9-5) L 10/26/19 06:15 Albumin/Globulin Ratio 0.7 % 10/26/19 06:15 Prealbumin 0.030 g/L (0.200-0.400) L 10/15/19 04:32 [id number] See scanned result 10/11/19 Unknown [id number] See scanned result 10/11/19 Unknown Beta Globulins See scanned result 10/11/19 Unknown Gamma Globulins See scanned result 10/11/19 Unknown Abnorm Protein Band 1 see below 10/11/19 09:00 PEP Interpretation See scanned result 10/11/19 Unknown Triglycerides 185 mg/dL (2-149) H 10/26/19 06:15 Urine Color Yellow (Yellow) 10/26/19 Unknown Urine Turbidity Clear (Clear) 10/26/19 Unknown Urine pH 9.0 (5.0-7.0) H 10/26/19 Unknown Ur Specific [place] 1.011 (1.003-1.030) 10/26/19 Unknown Urine Protein 30 mg/dl mg/dL (Negative) 10/26/19 Unknown Urine Glucose (UA) Neg mg/dL (Negative) 10/26/19 Unknown Urine Ketones Neg mg/dL (Negative) 10/26/19 Unknown Urine Blood Neg (Negative) 10/26/19 Unknown Urine Nitrite Neg (Negative) 10/26/19 Unknown Urine Bilirubin Neg (Negative) 10/26/19 Unknown Urine Urobilinogen < 2.0 mg/dL (<2.0) 10/26/19 Unknown Ur Leukocyte Esterase Neg (Negative) 10/26/19 Unknown Urine WBC (Auto) 1.0 /HPF (0.0-6.0) 10/26/19 Unknown Urine RBC (Auto) 1.0 /HPF (0.0-6.0) 10/26/19 Unknown Urine Bacteria (Auto) 1+ /HPF (Negative) 10/11/19 06:23 Urine Mucus Few /HPF 10/26/19 Unknown Urine Eosinophils None seen (None Seen) 10/11/19 06:23 Ur Random Creatinine See scanned result 10/11/19 Unknown U Random Total Protein See scanned result 10/11/19 Unknown Urine Creatinine 116.8 mg/dL (0.1-20.0) H 10/11/19 06:23 Urine Creatinine 118.2 mg/dL (0.1-20.0) H 10/11/19 06:23 Protein/Creatinin Ratio See scanned result 10/11/19 Unknown Urine Sodium 14 mmol/L 10/11/19 06:23 Urine Total Protein 104 mg/dL (5-11.8) H 10/11/19 06:23 Urine Total Protein 105 mg/dL (5-11.8) H 10/11/19 06:23 U Abnormal Prot Band 1 See scanned result 10/11/19 Unknown U Abnormal Prot Band 2 See scanned result 10/11/19 Unknown U Abnormal Prot Band 3 See scanned result 10/11/19 Unknown Vancomycin Trough 16.9 ug/mL (5.0-20.0) 10/28/19 12:25 Digoxin 0.7 ng/mL (0.9-2.0) L 10/19/19 04:21 Blood Type A POSITIVE 10/23/19 11:50 Antibody Screen Negative 10/23/19 11:50 Crossmatch See Detail 10/23/19 11:50 Active Medications - Current Medications Current Medications: Generic Name Dose Route Start Last Admin Trade Name Freq PRN Reason Stop Dose Admin Acetaminophen 650 mg 10/25/19 13:00 10/27/19 15:56 Tylenol FEEDTUBE 650 mg Q4H PRN Administration Fever >100.5 Albuterol 2.5 mg 10/05/19 21:36 Proventil IH Q4HRT PRN Shortness Of Breath Albuterol/Ipratropium 1 ampul 10/06/19 02:00 10/31/19 08:02 Duoneb *Not For Prn Use* IH 1 ampul Q6HRT VERÓNICA Administration Amiodarone HCl 200 mg 10/23/19 13:00 10/31/19 09:39 Cordarone PO 200 mg QDAY VERÓNICA Administration Lipase/Protease/Amylase 1 each 10/20/19 10:37 Pancreazanamika Moreno 10,500 Unit FEEDTUBE PRN PRN For Clogged Feeding Tube Arformoterol Tartrate 15 mcg 10/06/19 08:30 10/31/19 08:03 Brovana Nebu IH Not Given Q12HRT [facility] Budesonide 0.5 mg 10/07/19 12:20 10/31/19 08:02 Pulmicort IH 0.5 mg Q12HRT VERÓNICA Administration Citalopram Hydrobromide 20 mg 10/27/19 12:00 10/31/19 09:39 Celexa PO 20 mg DAILY VERÓNICA Administration Enoxaparin Sodium 40 mg 10/30/19 22:00 10/30/19 21:33 Enoxaparin SUB-Q 40 mg QDAY@2200 VERÓNICA Administration Fentanyl 50 mcg 10/25/19 12:35 10/30/19 07:52 Sublimaze IV 50 mcg Q2H PRN Administration PAIN SCORE </=5 Haloperidol Lactate 5 mg 10/25/19 18:22 10/26/19 10:51 Haldol IV 5 mg Q6H PRN Administration Agitation Hydralazine HCl 10 mg 10/28/19 14:09 10/30/19 03:06 Apresoline IV 10 mg Q4HR PRN Administration Hypertension Hydromorphone HCl 2 mg 10/25/19 12:35 10/31/19 06:16 Dilaudid IV 2 mg Q4H PRN Administration PAIN SCORE >/=6 MEROPENEM/NS 1 GRAM/100 ML 1 gram in 100 mls @ 100 mls/hr 10/26/19 18:30 10/31/19 10:12 Merrem/Ns 1 Gram/100 Ml IV 100 mls/hr Q8H [facility] Administration Protocol Micafungin Sodium 100 mg/ 100 mls @ 100 mls/hr 10/26/19 18:30 10/31/19 09:38 Sodium Chloride IV 100 mls/hr QDAY [facility] Administration Protocol Vancomycin HCl 2,000 mg/ 540 mls @ 270 mls/hr 10/30/19 14:00 10/31/19 06:17 Sodium Chloride IV 270 mls/hr Q8H [facility] Administration Protocol Insulin Human Lispro 0 unit 10/14/19 12:00 10/31/19 07:46 Humalog SUB-Q Not Given Q6HR [facility] Protocol Lisinopril 20 mg 10/30/19 10:00 12/18/19 09:39 Zestril PO 20 mg QDAY VERÓNICA Administration Metoprolol Tartrate 2.5 mg 10/15/19 15:34 10/28/19 17:07 Metoprolol IV 2.5 mg Q4HR PRN Administration HR >130 Metoprolol Tartrate 50 mg 10/25/19 14:00 10/31/19 06:17 Metoprolol PO 50 mg Q8HR VERÓNICA Administration Multi-Ingred Cream/Lotion/Oil/Oint 1 applic 10/14/19 02:19 Artificial Tears Ophth Oint OU Q4HR PRN Dry Eye(s) Ondansetron HCl 4 mg 10/05/19 21:22 10/11/19 18:20 Zofran IV 4 mg Q3H PRN Administration Nausea And Vomiting Pantoprazole Sodium 40 mg 10/15/19 10:00 10/31/19 09:39 Protonix IV 40 mg QDAY VERÓNICA Administration Simple Syrup 15 ml 10/20/19 10:37 Simple Syrup FEEDTUBE PRN PRN Hypoglycemia Simple Syrup 30 ml 10/20/19 10:37 Simple Syrup FEEDTUBE PRN PRN Hypoglycemia Sodium Bicarbonate 325 mg 10/20/19 10:37 Sodium Bicarbonate FEEDTUBE PRN PRN For Clogged Feeding Tube Sodium Chloride 10 ml 10/05/19 21:22 10/19/19 09:29 Sodium Chloride Flush Syringe 10 Ml IV 10 ml PRN PRN Administration LINE FLUSH Nutrition/Malnutrition Assess - Dietary Evaluation Nutrition/Malnutrition Findings: Nutrition Notes Start: 10/08/19 11:36 Freq: Status: Active Protocol: Document 10/30/19 10:14 CC (Rec: 10/30/19 10:42 CC [email or web address]) Co-Sign 10/30/19 10:14 Nutrition Notes Initial or Follow up Reassessment Current Diagnosis Acute Kidney Injury,COPD, Hypertension Other Pertinent Diagnosis intra-abdominal infection, disruption of bowel anastomosis, LE edema Current Diet CPN at 100ml/hr + Vital AF at 70ml/hr Labs/Tests Na 147 BUN 26 Cr 0.5 Pertinent Medications Reviewed Height 6 ft Weight 145 kg [place] Body Weight (kg) 80.90 BMI 43.3 Subjective/Other Information CPN day 17. TF was not running at time of visit d/t PT. Per RN TF was running at 40ml/hr before turned off. Pt was tolerating TF at this rate. CPN to be d/c today and TF to continue to increase to goal rate. Flushes increased for hypernatremia Percent of energy/protein needs met: 88%/100% (TF and TPN) Burn Absent Trauma Absent GI Symptoms None Current % PO Negligible Minimum of two criteria No Fluid Accumulation Mild (non-severe) #2 Nutrition Diagnosis Inadequate oral intake Diagnosis Progress(for reassessment Continues documentation) #1 Nutrition Diagnosis Increased nutrient needs ( specify in comment below) Diagnosis Progress(for reassessment Continues documentation) Is patient on ventilator? Yes Is Patient Ambulatory and/or Out of Bed No REE-(Nelson-St. Jeor-confined to bed) 2785.236 Kcal/Kg value to use for calculation 14 Approximate Energy Requirements Using 2029 kcal/Kg Calculation Used for Recommendations Kcal/kg Additional Notes Protein: 202g (up to 2.5 g/kg IBW 80.9 kg) Pay attention to renal issues Fluid: 1 ml/kcal or per MD Nutrition Intervention Change Diet Order: D/C CPN, continue TF Nutrition Support: Vital AF at 70ml/hr Flush 200 ml q4hr for hypernatremia Once resolved flush 100ml q4hr Kcal 2,016 Protein (gm) 126 Fluid (mL) 1,362 Goal #1 Meet energy and protein needs as best as possible via TF Goal #2 TF tolerance Anticipated Discharge Needs: unable to determine at this time Follow-Up By: 10/31/19 Additional Comments F/U for TF rate, tolerance, Na Lab
[2019-10-31] MEDS ORDERED: SODIUM BICARBONATE 325 MG TAB FEEDTUBE PRN (12:51)
[2019-10-31] MEDS ORDERED: LIPASE 10,500/PROTEASE 25,000/AMYLASE 43,750 (UNITS) DR CAP FEEDTUBE PRN (12:51)
[2019-10-31] MEDS ORDERED: SIMPLE SYRUP 15 ML FEEDTUBE PRN ×2 (12:51)
--- NOTE | 2019-10-31 16:39 | Progress Note ---
Assessment and Plan Cultures 10/10/2019 surgical culture: No growth at 72 hours 10/13/2019 tracheal aspirate culture: No growth 10/13/2019 peritoneal fluid: Enterococcus species (S to Penicillin, Vancomycin) 10/15/2019 blood culture: no growth 10/26/2019 urine culture: no growth thus far 10/26/2019 blood culture: no growth at 24 hours Assessment: 54 yo M PMhx CAD, COPD, recent complicated course of bowel perforation after a colonoscopy admitted with surgical site dehiscence of the fascia. Now with: # Acute sepsis - present with leukocytosis and tachycardia. Most likely secondary to fluid collection/abscess in the abdomen and anastomotic leak. # New fevers: new fevers on 10/25 and 10/26. Ongoing work up and empiric abx. Has indwelling PICC, Whitfield was removed 10/26. UA unremarkable for infection. # Intra-abdominal infection from anastomotic leak - s/p ex lap with closure of abdominal wall and wound vac placement (10/05/2019); s/p Re-exploration, washout, transection of colon, Abthera placement - 10/13/2019. s/p re- exploration and colostomy creation on 10/16/2019, intra-operatively was found to have "Small amount of continued leak from the old anastomotic site. Some contamination still present. Bowel was all viable". Back on OR on 10/19/2019, findings "small leak from stump staple line". OR again on 10/22/2019 for: Abdominal washout. Closure of abdominal fascia. Wound vac placement. Findings, "contamination from the sigmoid stump closure site." # COPD, acute respiratory failure: s/p extubation. On high flow O2. # Penicillin allergy - likely not a true allergy, reviewed EMR for previous exposure to PCNs, patient received several days of Zosyn in 2018 without issue. Recs: - given recent prolonged exposure to abx and TPN, at risk of MDR infections, candidemia, continue empiric Meropenem, Vancomycin and Micafungin - f/u blood culture, fungal blood culture. UA unremarkable. Whitfield was removed 10/26/2019. - fluid was drained yesterday and chest tube was placed for pneumonthorax. Expect improvement in WBC from this. [facility] ([facility] M: [phone] O: [phone] F: [phone] Subjective Date of service: 10/31/19 Principal diagnosis: acute renal failure Interval history: Afebrile, white count slightly decreased. Objective - Exam Narrative Exam: Constitutional: awake, alert, no distress Head, Ears, Nose: Normocephalic, atraumatic. External ears, nose normal Eyes: Conjunctivae/corneas clear. No icterus. No ptosis. Neck: supple, no meningeal signs Oral: no thrush Cardiovascular: S1, S2 normal. Respiratory: rhonchi bilaterally GI: Midline abdominal VAC. bowel sounds +, Colostomy + drains + Musculoskeletal: anasarca, pedal edema + but improving Skin: No rash or abscess Hem/Lymphatic: No palpable cervical or supraclavicular nodes. No lymphangitis Psych: no agitation Neurological: awake, alert - Constitutional Vitals: Vital Signs Temp Pulse Resp BP Pulse Ox 98.9 F 76 20 149/86 99 10/31/19 12:00 10/31/19 15:24 10/31/19 14:00 10/31/19 15:24 10/31/19 15:24 Temperature -Last 24 Hours Temperature 98.9 F Temperature 98.9 F Temperature 99.1 F Temperature 98.7 F Temperature 97.8 F Temperature 97.9 F - Labs CBC & Chem 7: 10/31/19 04:18 10/31/19 04:18 Labs: Abnormal lab results 10/30/19 10/31/19 10/31/19 Range/Units 18:10 04:18 04:18 WBC 11.7 H (4.5-11.0) K/mm3 RBC 3.11 L (3.65-5.03) M/mm3 Hgb 9.0 L (11.8-15.2) gm/dl Hct 27.9 L (35.5-45.6) % RDW 17.1 H (13.2-15.2) % Sodium 148 H (137-145) mmol/L Chloride 108.7 H (98-107) mmol/L BUN 37 H (9-20) mg/dL Creatinine 0.7 L (0.8-1.5) mg/dL Glucose 102 H (75-100) mg/dL POC Glucose 131 H (70-105) Vancomycin Trough (5.0-20.0) ug/mL 10/31/19 10/31/19 Range/Units 11:32 12:55 WBC (4.5-11.0) K/mm3 RBC (3.65-5.03) M/mm3 Hgb (11.8-15.2) gm/dl Hct (35.5-45.6) % RDW (13.2-15.2) % Sodium (137-145) mmol/L Chloride (98-107) mmol/L BUN (9-20) mg/dL Creatinine (0.8-1.5) mg/dL Glucose (75-100) mg/dL POC Glucose 120 H (70-105) Vancomycin Trough 41.7 H (5.0-20.0) ug/mL
[2019-10-31] MEDS: ENOXAPARIN 40 MG/0.4 ML INJ SUB-Q SCH (22:19)
[2019-11-01] MEDS: IPRATROPIUM/ALBUTEROL SULFATE 3 ML AMPUL.NEB IH SCH ×4 (01:25→19:27)
[2019-11-01] MEDS: INSULIN LISPRO 100 UNIT/ML SUB-Q SCH ×4 (01:30→21:23)
[2019-11-01] MEDS: MEROPENEM/NS 1 GRAM/100 ML 1 GRAM/100 ML BAG IV SCH ×3 (02:30→18:10)
--- NOTE | 2019-11-01 03:39 | XRay Report ---
CHEST 1 VIEW INDICATION / CLINICAL INFORMATION: Hypoxemia with left sided PTX with chest tube. COMPARISON: 10/30/2019 FINDINGS: SUPPORT DEVICES: Left chest tube remains as well as right-sided PICC line. Tracheostomy or endotrache al tube is in place as well. HEART / MEDIASTINUM: No significant abnormality. LUNGS / PLEURA: There is been significant interval improvement with the lung bases now nearly clear w ith only minimal density remaining. No edema or effusion. No pneumothorax. ADDITIONAL FINDINGS: No significant additional findings. IMPRESSION: 1 Significant improvement Signer Name: Miguelito Mo MD Signed: 11/01/2019 3:35 AM Workstation Name: [id number]
[2019-11-01 05:56] LABS: Hematocrit 27.7 % (35.5-45.6); Hemoglobin 8.9 gm/dl (11.8-15.2); Mean Corpuscular HGB Conc 32 % (32-34); Mean Corpuscular Volume 89 fl (84-94); Platelet Count 355 K/mm3 (140-440); Red Blood Count 3.13 M/mm3 (3.65-5.03)
[2019-11-01] MEDS: METOPROLOL TARTRATE 50 MG TAB PO SCH ×3 (06:00→20:35)
[2019-11-01] MEDS: VANCOMYCIN 2,000 MG in SODIUM CHLORIDE 0.9% 500 ML 500 ML IV SCH (06:01)
[2019-11-01 06:14] LABS: BUN/Creatinine Ratio 37; Blood Urea Nitrogen 26 mg/dL (9-20); Calcium 8.5 mg/dL (8.4-10.2); Hemolysis Index 1
[2019-11-01] MEDS: ARFORMOTEROL 15 MCG/2 ML NEBU IH SCH ×2 (07:31→19:27)
[2019-11-01] MEDS: BUDESONIDE 0.5 MG/2 ML NEBU IH SCH ×2 (07:31→19:27)
--- NOTE | 2019-11-01 09:25 | Progress Note ---
Assessment and Plan - Patient Problems (1) Dehiscence of closure of fascia, superficial or muscular Current Visit: No Status: Acute Qualifiers: Encounter type: initial encounter Qualified Code(s): T81.32XA - Disruption of internal operation (surgical) wound, not elsewhere classified, initial encounter Plan to address problem: Pt stable. s/p ex lap with closure of abdominal wall and wound vac placement (10/05) - POD#24; s/p Re-exploration, washout, transection of colon, Abthera placement - 10/13 - POD#16; s/p abd washout, partial omentectomy, partial colectomy with colostomy - 10/16 POD#14. s/p abd washout, feeding tube placement, AbThera placement - 10/19 - POD#11; Abdominal washout and closure - 10/22 - POD#9 Patient appears to worsening based on increased HR and WBC. This appears to be the same scenario we saw last time when he had uncontrolled. I think we need to consider transfer to a tertiary care center as I do not have any other options to control this stump leak. Discussed with Dr. Negro. Rec: 1) Neuro - intubated. sedated. 2) CV - BP normal today 3) Resp - On vent. Small bore CT on left. Mgmt per ICU team. 4) GI - Ostomy looks good. Functioning now. Sump drains - Right drain was accidentally pulled out (10/30). Left one is still functioning. New small bore catheter placed 10/30 - moderate output after drain was stripped. Appears like stool. Wound Vac - wound looked good on last check. continue wound vac. Ostomy - functioning now. NGT - appearance looks more gastric now. Not sure if amount is correct in the chart. 5) - BUN/Cr stable. 6) ID - Abx per ID. Enterococcus on cultures. 7) Nutrition - TPN. Continue for now until tube feeds tolerated at goal. 8) DVT prophylaxis - SCDs. Lovenox 9) Family -no family at bedside. I called the and explained my assessment. She noted as well the heart rate was increased. I explained that I do not feel we have good control of the drainage. We have tried multiple different techniques, but none has had long-term success. I am very worried that going back into the abdomen will lead to injury of the small bowel and cause fistula development. We need to get another opinion on best management at this time. Therefore, I believe we need to transfer him to a tertiary care center that would be better able to manage this challenging problem. She was agreeable to that option. 10) PT - will need rehab. Please call with questions. Subjective Date of service: 11/01/19 Patient Reports: Positive: fever, other (heart rate up) Objective Vital Signs - 12hr 10/31/19 10/31/19 10/31/19 22:00 22:01 22:15 Temperature Pulse Rate 93 H 94 H Pulse Rate [ 97 H Anterior Bilateral Throughout] Pulse Rate [ From Monitor] Respiratory 25 H Rate Respiratory 20 Rate [Abdomen] Respiratory 24 Rate [Anterior Bilateral Throughout] Blood Pressure 154/67 154/67 O2 Sat by Pulse 93 93 Oximetry 10/31/19 10/31/19 10/31/19 22:19 23:01 23:23 Temperature 99.6 F Pulse Rate 95 H 78 Pulse Rate [ Anterior Bilateral Throughout] Pulse Rate [ From Monitor] Respiratory 24 Rate Respiratory Rate [Abdomen] Respiratory Rate [Anterior Bilateral Throughout] Blood Pressure 154/67 138/54 O2 Sat by Pulse 93 Oximetry 11/01/19 11/01/19 11/01/19 00:00 00:01 00:34 Temperature Pulse Rate 80 81 80 Pulse Rate [ Anterior Bilateral Throughout] Pulse Rate [ 81 From Monitor] Respiratory 24 24 Rate Respiratory Rate [Abdomen] Respiratory Rate [Anterior Bilateral Throughout] Blood Pressure 111/46 118/53 O2 Sat by Pulse 99 94 95 Oximetry 11/01/19 11/01/19 11/01/19 01:00 01:50 02:01 Temperature Pulse Rate 80 85 Pulse Rate [ 84 Anterior Bilateral Throughout] Pulse Rate [ From Monitor] Respiratory 24 25 H Rate Respiratory Rate [Abdomen] Respiratory 24 Rate [Anterior Bilateral Throughout] Blood Pressure 126/53 148/71 O2 Sat by Pulse 93 95 Oximetry 11/01/19 11/01/19 11/01/19 03:01 04:00 04:01 Temperature 99.0 F Pulse Rate 104 H 109 H 108 H Pulse Rate [ Anterior Bilateral Throughout] Pulse Rate [ 107 H From Monitor] Respiratory 26 H 24 24 Rate Respiratory Rate [Abdomen] Respiratory Rate [Anterior Bilateral Throughout] Blood Pressure 159/92 155/83 O2 Sat by Pulse 91 95 89 Oximetry 11/01/19 11/01/19 11/01/19 04:14 05:00 06:00 Temperature Pulse Rate 109 H 107 H 105 H Pulse Rate [ Anterior Bilateral Throughout] Pulse Rate [ From Monitor] Respiratory 27 H 26 H Rate Respiratory Rate [Abdomen] Respiratory Rate [Anterior Bilateral Throughout] Blood Pressure 155/83 140/80 140/70 O2 Sat by Pulse 91 93 94 Oximetry 11/01/19 11/01/19 11/01/19 07:21 07:32 08:00 Temperature 101.0 F H Pulse Rate 101 H Pulse Rate [ 101 H Anterior Bilateral Throughout] Pulse Rate [ From Monitor] Respiratory Rate Respiratory Rate [Abdomen] Respiratory 26 H Rate [Anterior Bilateral Throughout] Blood Pressure 148/68 O2 Sat by Pulse 97 Oximetry - General physical appearance no distress, no pain - Respiratory normal expansion, normal respiratory effort - Abdomen soft, other (stool like output from drains. Wound vac serosang. Gastric tube appears to be normal appearance) - Labs 11/01/19 05:30 11/01/19 05:30 Diabetes panel 11/01/19 Range/Units 05:30 Sodium 149 H (137-145) mmol/L Potassium 4.1 (3.6-5.0) mmol/L Chloride 109.0 H (98-107) mmol/L Carbon Dioxide 27 (22-30) mmol/L BUN 26 H (9-20) mg/dL Creatinine 0.7 L (0.8-1.5) mg/dL Glucose 129 H (75-100) mg/dL Calcium 8.5 (8.4-10.2) mg/dL Calcium panel 11/01/19 Range/Units 05:30 Calcium 8.5 (8.4-10.2) mg/dL Pituitary panel 11/01/19 Range/Units 05:30 Sodium 149 H (137-145) mmol/L Potassium 4.1 (3.6-5.0) mmol/L Chloride 109.0 H (98-107) mmol/L Carbon Dioxide 27 (22-30) mmol/L BUN 26 H (9-20) mg/dL Creatinine 0.7 L (0.8-1.5) mg/dL Glucose 129 H (75-100) mg/dL Calcium 8.5 (8.4-10.2) mg/dL Adrenal panel 11/01/19 Range/Units 05:30 Sodium 149 H (137-145) mmol/L Potassium 4.1 (3.6-5.0) mmol/L Chloride 109.0 H (98-107) mmol/L Carbon Dioxide 27 (22-30) mmol/L BUN 26 H (9-20) mg/dL Creatinine 0.7 L (0.8-1.5) mg/dL Glucose 129 H (75-100) mg/dL Calcium 8.5 (8.4-10.2) mg/dL
[2019-11-01] MEDS: PANTOPRAZOLE 40 MG INJ IV SCH (09:38)
[2019-11-01] MEDS: AMIODARONE 200 MG TAB PO SCH (09:38)
[2019-11-01] MEDS: CITALOPRAM 20 MG TAB PO SCH (09:38)
[2019-11-01] MEDS: LISINOPRIL 20 MG TAB PO SCH (09:38)
[2019-11-01] MEDS: MICAFUNGIN 100 MG in SODIUM CHLORIDE 0.9% 100 ML IV SCH (09:39)
[2019-11-01] MEDS: ACETAMINOPHEN 325 MG/10.15 ML ORAL LIQD UNIT DOSE FEEDTUBE PRN ×3 (09:47→21:25)
--- NOTE | 2019-11-01 10:51 | Progress Note ---
Assessment and Plan 54 y/o male with anastomic leak 11/01: Spoke with Dr. Krause this am and understand his concerns. Have started the transfer process. Most ICU's throughout the city are on diversion or full. [place] has received his Facesheet and we are awaiting to hear back from them. CXR is clear. Minimal vent settings. Will continue supportive care for now. Follow up any new ID recs given increasing white and fever. 10/31: Will check CXR tomorrow. Continue chest tube to suction. Will likely stay in until extubated. Continue drains. Explained to staff to be extremely careful with these drains so that they do not come out. 10/30: Acute on chronic respiratory failure requiring reintubation. Appreciate Anesthesia assistance as he was a difficult intubation when we had to change his tube out about 1 week ago. Will continue on 100% until after Scans and then start to wean back down. CXR yesterday looked like pulmonary edema but improved today with positive pressure. Continue supportive care and await results of scans. 10/29: Discussed today on rounds. Patient had some issues over the weekend with the ICE chips and liquids. Will obtain speech consult/eval prior to restarting clears today. Spoke with nutrition and they will adjust tube feeds with new goal. Once at goal will start to taper off TPN. ordered Incentive madhu to bedside. Will also restart home dose of elaine today. pain control and drainage monitoring. Will continue ICU care. 10/26: Patient stable overall. Not ready for floor. Would be ok with step down if beds are needed. If spikes temp again will order blood cultures x2, urine culture, UA and repeat CXR. Gave an additional 40 of lasix this am. Will give more potassium replacement. Continue trickle feeds for now. Will continue PO meds and restart home dose of citalopram. Wean FiO2 and flow for sats >88%. Mildly hypertensive but this was secondary to agitation. Normalizing now. 10/25: Will extubate today. Will use HFNC if distress or hypoxemia is noted. Not a good candidate for bipap given his recent abdominal issues. Spoke with who is now at bedside and surgery. Will continue to attempt to achieve net negative state daily. Hold on further albumin administration. Hypernatremia is iatrogenic from lasix administration Worse case scenario, will re-intubate with anesthesia. 10/24: Responding well to lasix and protein therapy. Will give 2 more doses of lasix today. Consider one for tonight as well. Last albumin today at 1800. CXR is stable, still with layering bilateral pleural effusions. Will reassess again tomorrow. Reviewed all other strategic solutions consultant notes. Spoke with sisters at bedside, updated and spoke with surgery. 10/23: Long discussion with surgery and via phone. Anasarca is likely from decreased oncotic pressure and immobility of several days now that abdomen is finally closed. Now fluid is essentially leaking into the interstitium now that the abdomen is shut and there is increased intra-abdominal pressure. Total Protein is 4.5 and albumin is 1.2. This is to be expected given current illness. Will attempt to increase oncotic pressure with 2 units of PRBC's and albumin infusions for the next 24 hours starting at midnight tonight. Will give lasix inbetween transfusions and then again tonight. CXR is consistent with pulmonary edema volume overload. Will continue vent for now and after significant volume removal then will attempt extubation. Discussed with and she understands. Will continue to monitor. Agree with trickle feeds and cards has switched amio over to PO to be given through the G-tube. If tolerates, hopeful to be rid of TPN soon as this is necessary but excessive volume as well. 10/22: Added diprovan as more sedation was needed. Hopefully once closed and no leaks, patient can be extubated. Cards very concerned about length of time for IV amio. Will discuss with surgery the time frame that gut can be used. 10/21: Will hold on weaning until abdomen is closed, especially knowing mental status is good. Will focus on pain control. Replace electrolytes. Appreciate Surgery recs and detail. Follow up any new recs from cards. Or tomorrow for closure CCT 31 minutes. Subjective Date of service: 11/01/19 Principal diagnosis: acute renal failure Interval history: Drainage is increasing from drains. Increase in WBC. BP stable. Pulm status stable. Still making urine. Febrile this am to 101. Objective Vital Signs - 12hr 10/31/19 10/31/19 11/01/19 23:01 23:23 00:00 Temperature 99.6 F Pulse Rate 78 80 Pulse Rate [ Anterior Bilateral Throughout] Pulse Rate [ 81 From Monitor] Respiratory 24 24 Rate Respiratory Rate [Anterior Bilateral Throughout] Blood Pressure 138/54 O2 Sat by Pulse 93 99 Oximetry 11/01/19 11/01/19 11/01/19 00:01 00:34 01:00 Temperature Pulse Rate 81 80 80 Pulse Rate [ Anterior Bilateral Throughout] Pulse Rate [ From Monitor] Respiratory 24 24 Rate Respiratory Rate [Anterior Bilateral Throughout] Blood Pressure 111/46 118/53 126/53 O2 Sat by Pulse 94 95 93 Oximetry 11/01/19 11/01/19 11/01/19 01:50 02:01 03:01 Temperature Pulse Rate 85 104 H Pulse Rate [ 84 Anterior Bilateral Throughout] Pulse Rate [ From Monitor] Respiratory 25 H 26 H Rate Respiratory 24 Rate [Anterior Bilateral Throughout] Blood Pressure 148/71 159/92 O2 Sat by Pulse 95 91 Oximetry 11/01/19 11/01/19 11/01/19 04:00 04:01 04:14 Temperature 99.0 F Pulse Rate 109 H 108 H 109 H Pulse Rate [ Anterior Bilateral Throughout] Pulse Rate [ 107 H From Monitor] Respiratory 24 24 Rate Respiratory Rate [Anterior Bilateral Throughout] Blood Pressure 155/83 155/83 O2 Sat by Pulse 95 89 91 Oximetry 11/01/19 11/01/19 11/01/19 05:00 06:00 07:00 Temperature Pulse Rate 107 H 105 H 97 H Pulse Rate [ Anterior Bilateral Throughout] Pulse Rate [ From Monitor] Respiratory 27 H 26 H 40 H Rate Respiratory Rate [Anterior Bilateral Throughout] Blood Pressure 140/80 140/70 148/68 O2 Sat by Pulse 93 94 96 Oximetry 11/01/19 11/01/19 11/01/19 07:21 07:32 08:00 Temperature 101.0 F H Pulse Rate 101 H 96 H Pulse Rate [ 101 H Anterior Bilateral Throughout] Pulse Rate [ 96 H From Monitor] Respiratory 27 H Rate Respiratory 26 H Rate [Anterior Bilateral Throughout] Blood Pressure 148/68 141/61 O2 Sat by Pulse 97 97 Oximetry 11/01/19 11/01/19 09:00 09:38 Temperature Pulse Rate 98 H 96 H Pulse Rate [ Anterior Bilateral Throughout] Pulse Rate [ From Monitor] Respiratory 25 H Rate Respiratory Rate [Anterior Bilateral Throughout] Blood Pressure 162/54 155/72 O2 Sat by Pulse 98 Oximetry Constitutional: alert, other (critically ill on HFNC) Eyes: non-icteric ENT: oropharynx moist Neck: supple Effort: mildly labored Ascultation: Bilateral: diminished breath sounds (bases) Cardiovascular: regular rate and rhythm (no mrg) Gastrointestinal: tender, other (obese, distended) Integumentary: normal Extremities: no cyanosis, pink and warm, edema (1+ bilateral LE edema) Neurologic: normal mental status, non-focal exam, pupils equal and round Psychiatric: mood appropriate, affect normal CBC and BMP: 11/01/19 05:30 11/01/19 05:30 ABG, PT/INR, D-dimer: ABG POC ABG pH 7.407 (7.35-7.45) 11/01/19 06:10 ABG pH 7.390 pH Units (7.350-7.450) 10/23/19 04:47 POC ABG pCO2 51.3 (35-45) H 11/01/19 06:10 ABG pCO2 48.4 mm Hg 10/23/19 04:47 POC ABG pO2 71 (80-105) L 11/01/19 06:10 ABG pO2 68.9 mm Hg (80.0-90.0) L 10/23/19 04:47 POC ABG HCO3 32.3 (22-26 mml/L) 11/01/19 06:10 POC ABG Total CO2 34 (23-27mmol/L) 11/01/19 06:10 POC ABG O2 Sat 94 11/01/19 06:10 ABG O2 Saturation 96.6 % (95.0-99.0) 10/23/19 04:47 Abnormal lab findings: Abnormal Labs 10/06/19 10/06/19 10/07/19 05:36 05:36 05:54 WBC 21.8 H 21.5 H RBC 3.55 L Hgb 10.9 L Hct 32.7 L MCHC RDW Plt Count Lymph % (Auto) [place] % (Auto) Lymph # [place] # Seg Neutrophils % Seg Neuts % (Manual) 91.0 H Lymphocytes % (Manual) 2.0 L Seg Neutrophils # Seg Neutrophils # Man 19.8 H Lymphocytes # (Manual) 0.4 L Monocytes # (Manual) 1.1 H POC ABG pH ABG pH POC ABG pCO2 POC ABG pO2 ABG pO2 ABG HCO3 ABG Base Excess ABG Hemoglobin Oxyhemoglobin Sodium 135 L Potassium Chloride 95.9 L Carbon Dioxide BUN Creatinine 0.7 L Glucose POC Glucose Calcium Phosphorus Magnesium Direct Bilirubin AST Alkaline Phosphatase C-Reactive Protein Serum Total Protein Total Protein 5.7 L Albumin 2.5 L Prealbumin Jogyr-1-Mmrgapllt Abjpk-3-Thehvhdtu Gamma Globulins PEP Interpretation Triglycerides Urine pH Urine Creatinine Urine Total Protein Vancomycin Trough Digoxin Crossmatch 10/07/19 10/09/19 10/09/19 05:54 10:52 10:52 WBC 16.6 H RBC Hgb Hct MCHC RDW Plt Count 498 H Lymph % (Auto) [place] % (Auto) Lymph # [place] # Seg Neutrophils % Seg Neuts % (Manual) 93.0 H Lymphocytes % (Manual) 5.0 L Seg Neutrophils # Seg Neutrophils # Man 15.4 H Lymphocytes # (Manual) 0.8 L Monocytes # (Manual) POC ABG pH ABG pH POC ABG pCO2 POC ABG pO2 ABG pO2 ABG HCO3 ABG Base Excess ABG Hemoglobin Oxyhemoglobin Sodium Potassium Chloride 97.9 L Carbon Dioxide 20 L D BUN 23 H Creatinine 1.7 H D Glucose 109 H POC Glucose Calcium 8.1 L Phosphorus Magnesium Direct Bilirubin AST Alkaline Phosphatase C-Reactive Protein Serum Total Protein Total Protein Albumin Prealbumin Lmglx-1-Gcyvgwrzq Inaxi-9-Oqnmffszd Gamma Globulins PEP Interpretation Triglycerides Urine pH Urine Creatinine Urine Total Protein Vancomycin Trough Digoxin Crossmatch 10/09/19 10/10/19 10/10/19 17:23 05:30 05:30 WBC 14.6 H RBC Hgb 11.1 L Hct 33.5 L MCHC RDW Plt Count 527 H Lymph % (Auto) [place] % (Auto) Lymph # [place] # Seg Neutrophils % Seg Neuts % (Manual) Lymphocytes % (Manual) Seg Neutrophils # Seg Neutrophils # Man Lymphocytes # (Manual) Monocytes # (Manual) POC ABG pH ABG pH POC ABG pCO2 POC ABG pO2 ABG pO2 ABG HCO3 ABG Base Excess ABG Hemoglobin Oxyhemoglobin Sodium 130 L D Potassium 5.1 H Chloride 90.0 L 91.0 L Carbon Dioxide 20 L 20 L BUN 27 H 35 H Creatinine 1.9 H 2.0 H Glucose 104 H POC Glucose Calcium Phosphorus Magnesium Direct Bilirubin AST Alkaline Phosphatase C-Reactive Protein Serum Total Protein Total Protein Albumin Prealbumin Lmzis-8-Elirpqpuo Ogkqt-6-[place] Gamma Globulins PEP Interpretation Triglycerides Urine pH Urine Creatinine Urine Total Protein Vancomycin Trough Digoxin Crossmatch 10/10/19 10/10/19 10/11/19 08:33 08:44 05:41 WBC 13.2 H RBC Hgb 11.3 L Hct 33.8 L MCHC RDW 15.3 H Plt Count 543 H Lymph % (Auto) [place] % (Auto) Lymph # [place] # Seg Neutrophils % Seg Neuts % (Manual) Lymphocytes % (Manual) Seg Neutrophils # Seg Neutrophils # Man Lymphocytes # (Manual) Monocytes # (Manual) POC ABG pH ABG pH POC ABG pCO2 POC ABG pO2 ABG pO2 ABG HCO3 ABG Base Excess ABG Hemoglobin Oxyhemoglobin Sodium Potassium Chloride Carbon Dioxide BUN Creatinine Glucose 113 H POC Glucose 117 H Calcium Phosphorus Magnesium Direct Bilirubin AST Alkaline Phosphatase C-Reactive Protein Serum Total Protein Total Protein Albumin Prealbumin Kodno-5-Dqljalneb Ybuus-4-Ugjldewkh Gamma Globulins PEP Interpretation Triglycerides Urine pH Urine Creatinine Urine Total Protein Vancomycin Trough Digoxin Crossmatch 10/11/19 10/11/19 10/11/19 05:41 06:23 06:23 WBC RBC Hgb Hct MCHC RDW Plt Count Lymph % (Auto) [place] % (Auto) Lymph # [place] # Seg Neutrophils % Seg Neuts % (Manual) Lymphocytes % (Manual) Seg Neutrophils # Seg Neutrophils # Man Lymphocytes # (Manual) Monocytes # (Manual) POC ABG pH ABG pH POC ABG pCO2 POC ABG pO2 ABG pO2 ABG HCO3 ABG Base Excess ABG Hemoglobin Oxyhemoglobin Sodium 134 L Potassium Chloride 96.3 L Carbon Dioxide BUN 37 H Creatinine Glucose 58 L POC Glucose Calcium Phosphorus 4.90 H Magnesium Direct Bilirubin AST Alkaline Phosphatase C-Reactive Protein Serum Total Protein Total Protein Albumin Prealbumin Iwfxl-8-Lmmopsuun Ujdrs-7-Vouubcjia Gamma Globulins PEP Interpretation Triglycerides Urine pH Urine Creatinine 118.2 H 116.8 H Urine Total Protein 105 H 104 H Vancomycin Trough Digoxin Crossmatch 10/11/19 10/12/19 10/12/19 09:00 06:09 06:09 WBC 13.8 H RBC 3.39 L Hgb 10.2 L Hct 30.9 L MCHC RDW 15.5 H Plt Count 459 H Lymph % (Auto) [place] % (Auto) Lymph # [place] # Seg Neutrophils % Seg Neuts % (Manual) Lymphocytes % (Manual) Seg Neutrophils # Seg Neutrophils # Man Lymphocytes # (Manual) Monocytes # (Manual) POC ABG pH ABG pH POC ABG pCO2 POC ABG pO2 ABG pO2 ABG HCO3 ABG Base Excess ABG Hemoglobin Oxyhemoglobin Sodium 131 L Potassium Chloride 96.2 L Carbon Dioxide 21 L BUN 43 H Creatinine Glucose 72 L POC Glucose Calcium Phosphorus Magnesium Direct Bilirubin AST Alkaline Phosphatase C-Reactive Protein Serum Total Protein 5.2 L Total Protein Albumin 1.9 L Prealbumin Vqsar-7-Wnkujimjo 0.9 H Qexyp-7-Eflaasitj 1.0 H Gamma Globulins 0.7 L PEP Interpretation see below H Triglycerides Urine pH Urine Creatinine Urine Total Protein Vancomycin Trough Digoxin Crossmatch 10/12/19 10/12/19 10/12/19 08:20 09:30 09:30 WBC RBC Hgb Hct MCHC RDW Plt Count Lymph % (Auto) [place] % (Auto) Lymph # [place] # Seg Neutrophils % Seg Neuts % (Manual) Lymphocytes % (Manual) Seg Neutrophils # Seg Neutrophils # Man Lymphocytes # (Manual) Monocytes # (Manual) POC ABG pH ABG pH POC ABG pCO2 POC ABG pO2 63 L ABG pO2 ABG HCO3 ABG Base Excess ABG Hemoglobin Oxyhemoglobin Sodium Potassium Chloride Carbon Dioxide BUN Creatinine Glucose POC Glucose Calcium Phosphorus Magnesium 2.50 H Direct Bilirubin 0.3 H AST Alkaline Phosphatase C-Reactive Protein Serum Total Protein Total Protein 5.1 L Albumin 2.2 L Prealbumin Pzvvm-4-Zeokiysdz Dbwzq-7-Tsaiofnbv Gamma Globulins PEP Interpretation Triglycerides Urine pH Urine Creatinine Urine Total Protein Vancomycin Trough Digoxin Crossmatch 10/13/19 10/13/19 10/13/19 04:20 04:20 13:20 WBC 15.7 H RBC 3.64 L Hgb 10.9 L Hct 33.1 L MCHC RDW 15.8 H Plt Count 488 H Lymph % (Auto) [place] % (Auto) Lymph # [place] # Seg Neutrophils % Seg Neuts % (Manual) Lymphocytes % (Manual) Seg Neutrophils # Seg Neutrophils # Man Lymphocytes # (Manual) Monocytes # (Manual) POC ABG pH ABG pH POC ABG pCO2 POC ABG pO2 ABG pO2 ABG HCO3 ABG Base Excess ABG Hemoglobin Oxyhemoglobin Sodium Potassium Chloride Carbon Dioxide BUN 28 H Creatinine Glucose POC Glucose Calcium Phosphorus Magnesium Direct Bilirubin AST Alkaline Phosphatase C-Reactive Protein Serum Total Protein Total Protein Albumin Prealbumin Uidah-8-Mnmudjeqv Pbukm-6-Tgoykcubx Gamma Globulins PEP Interpretation Triglycerides Urine pH Urine Creatinine Urine Total Protein Vancomycin Trough Digoxin Crossmatch See Detail 10/13/19 10/13/19 10/14/19 18:24 20:05 04:47 WBC 24.2 H RBC Hgb 10.9 L Hct 34.2 L MCHC RDW 17.0 H Plt Count 442 H Lymph % (Auto) [place] % (Auto) Lymph # [place] # Seg Neutrophils % Seg Neuts % (Manual) Lymphocytes % (Manual) Seg Neutrophils # Seg Neutrophils # Man Lymphocytes # (Manual) Monocytes # (Manual) POC ABG pH ABG pH 7.180 L* 7.278 L POC ABG pCO2 POC ABG pO2 ABG pO2 130.7 H ABG HCO3 ABG Base Excess -6.5 L -6.5 L ABG Hemoglobin 12.2 L 12.3 L Oxyhemoglobin 92.9 L Sodium Potassium Chloride Carbon Dioxide BUN Creatinine Glucose POC Glucose Calcium Phosphorus Magnesium Direct Bilirubin AST Alkaline Phosphatase C-Reactive Protein Serum Total Protein Total Protein Albumin Prealbumin Gssnv-1-Wlhvxjlgf Eoxut-2-Oqzzjrnmh Gamma Globulins PEP Interpretation Triglycerides Urine pH Urine Creatinine Urine Total Protein Vancomycin Trough Digoxin Crossmatch 10/14/19 10/14/19 10/14/19 04:47 05:40 10:14 WBC RBC Hgb Hct MCHC RDW Plt Count Lymph % (Auto) [place] % (Auto) Lymph # [place] # Seg Neutrophils % Seg Neuts % (Manual) Lymphocytes % (Manual) Seg Neutrophils # Seg Neutrophils # Man Lymphocytes # (Manual) Monocytes # (Manual) POC ABG pH ABG pH POC ABG pCO2 POC ABG pO2 ABG pO2 76.3 L ABG HCO3 19.1 L ABG Base Excess -5.8 L ABG Hemoglobin 10.9 L Oxyhemoglobin 93.4 L Sodium Potassium 5.1 H D Chloride 109.2 H Carbon Dioxide 17 L BUN 38 H Creatinine 1.8 H D Glucose 104 H POC Glucose Calcium 7.4 L Phosphorus 5.60 H Magnesium Direct Bilirubin AST Alkaline Phosphatase C-Reactive Protein Serum Total Protein Total Protein Albumin Prealbumin Wcnpd-3-Guzgimlrq Yacup-7-Spjlzlapo Gamma Globulins PEP Interpretation Triglycerides Urine pH Urine Creatinine Urine Total Protein Vancomycin Trough Digoxin Crossmatch 10/14/19 10/15/19 10/15/19 23:46 04:32 04:32 WBC 15.5 H RBC 2.89 L Hgb 8.8 L Hct 27.3 L D MCHC RDW 16.6 H Plt Count Lymph % (Auto) [place] % (Auto) Lymph # [place] # Seg Neutrophils % Seg Neuts % (Manual) Lymphocytes % (Manual) Seg Neutrophils # Seg Neutrophils # Man Lymphocytes # (Manual) Monocytes # (Manual) POC ABG pH ABG pH POC ABG pCO2 POC ABG pO2 ABG pO2 ABG HCO3 ABG Base Excess ABG Hemoglobin Oxyhemoglobin Sodium 147 H Potassium Chloride 114.0 H Carbon Dioxide 19 L BUN 42 H Creatinine Glucose 112 H POC Glucose 113 H Calcium 7.3 L Phosphorus Magnesium Direct Bilirubin AST 72 H Alkaline Phosphatase C-Reactive Protein 30.60 H Serum Total Protein Total Protein 4.0 L D Albumin 1.7 L Prealbumin 0.030 L Pyivy-7-Palhyqckr Xskvh-4-Shbrgnfrw Gamma Globulins PEP Interpretation Triglycerides Urine pH Urine Creatinine Urine Total Protein Vancomycin Trough Digoxin Crossmatch 10/15/19 10/15/19 10/15/19 05:30 12:08 17:23 WBC RBC Hgb Hct MCHC RDW Plt Count Lymph % (Auto) [place] % (Auto) Lymph # [place] # Seg Neutrophils % Seg Neuts % (Manual) Lymphocytes % (Manual) Seg Neutrophils # Seg Neutrophils # Man Lymphocytes # (Manual) Monocytes # (Manual) POC ABG pH ABG pH 7.296 L POC ABG pCO2 POC ABG pO2 ABG pO2 114.7 H ABG HCO3 ABG Base Excess -3.7 L ABG Hemoglobin 8.9 L Oxyhemoglobin Sodium Potassium Chloride Carbon Dioxide BUN Creatinine Glucose POC Glucose 106 H 106 H Calcium Phosphorus Magnesium Direct Bilirubin AST Alkaline Phosphatase C-Reactive Protein Serum Total Protein Total Protein Albumin Prealbumin Lqgbf-6-Svtqnubaa Xodxq-3-Kuiuaivqr Gamma Globulins PEP Interpretation Triglycerides Urine pH Urine Creatinine Urine Total Protein Vancomycin Trough Digoxin Crossmatch 10/16/19 10/16/19 10/16/19 00:07 04:44 05:24 WBC RBC Hgb Hct MCHC RDW Plt Count Lymph % (Auto) [place] % (Auto) Lymph # [place] # Seg Neutrophils % Seg Neuts % (Manual) Lymphocytes % (Manual) Seg Neutrophils # Seg Neutrophils # Man Lymphocytes # (Manual) Monocytes # (Manual) POC ABG pH ABG pH POC ABG pCO2 POC ABG pO2 ABG pO2 ABG HCO3 ABG Base Excess ABG Hemoglobin Oxyhemoglobin Sodium 150 H Potassium Chloride 115.8 H Carbon Dioxide BUN 35 H Creatinine Glucose 129 H POC Glucose 119 H 129 H Calcium 7.3 L Phosphorus 1.80 L D Magnesium Direct Bilirubin AST Alkaline Phosphatase C-Reactive Protein Serum Total Protein Total Protein Albumin Prealbumin Iqeto-4-Dtjiolldv Ziaqw-2-Cllaumuvw Gamma Globulins PEP Interpretation Triglycerides Urine pH Urine Creatinine Urine Total Protein Vancomycin Trough Digoxin Crossmatch 10/16/19 10/16/19 10/16/19 06:53 09:20 11:58 WBC 14.6 H RBC 2.70 L Hgb 8.1 L Hct 25.2 L MCHC RDW 16.7 H Plt Count Lymph % (Auto) [place] % (Auto) Lymph # [place] # Seg Neutrophils % Seg Neuts % (Manual) 79.0 H Lymphocytes % (Manual) 4.0 L Seg Neutrophils # Seg Neutrophils # Man 11.5 H Lymphocytes # (Manual) 0.6 L Monocytes # (Manual) POC ABG pH ABG pH POC ABG pCO2 47.0 H POC ABG pO2 ABG pO2 ABG HCO3 ABG Base Excess ABG Hemoglobin Oxyhemoglobin Sodium Potassium Chloride Carbon Dioxide BUN Creatinine Glucose POC Glucose Calcium Phosphorus Magnesium Direct Bilirubin AST Alkaline Phosphatase C-Reactive Protein Serum Total Protein Total Protein Albumin Prealbumin Tdabg-1-Kxsgsfbdx Equfe-8-Mszqnqljl Gamma Globulins PEP Interpretation Triglycerides Urine pH Urine Creatinine Urine Total Protein Vancomycin Trough Digoxin Crossmatch See Detail 10/16/19 10/16/19 10/16/19 15:23 17:50 23:58 WBC RBC Hgb Hct MCHC RDW Plt Count Lymph % (Auto) [place] % (Auto) Lymph # [place] # Seg Neutrophils % Seg Neuts % (Manual) Lymphocytes % (Manual) Seg Neutrophils # Seg Neutrophils # Man Lymphocytes # (Manual) Monocytes # (Manual) POC ABG pH ABG pH POC ABG pCO2 POC ABG pO2 ABG pO2 ABG HCO3 ABG Base Excess ABG Hemoglobin Oxyhemoglobin Sodium Potassium Chloride Carbon Dioxide BUN Creatinine Glucose POC Glucose 221 H 201 H 179 H Calcium Phosphorus Magnesium Direct Bilirubin AST Alkaline Phosphatase C-Reactive Protein Serum Total Protein Total Protein Albumin Prealbumin Xrrly-6-Rndomwitl Efnir-1-Zuzvxsjsj Gamma Globulins PEP Interpretation Triglycerides Urine pH Urine Creatinine Urine Total Protein Vancomycin Trough Digoxin Crossmatch 10/17/19 10/17/1910/17/19 04:08 04:08 05:41 WBC 22.3 H RBC 3.35 L Hgb 10.0 L Hct 31.2 L D MCHC RDW 16.1 H Plt Count Lymph % (Auto) [place] % (Auto) Lymph # [place] # Seg Neutrophils % Seg Neuts % (Manual) Lymphocytes % (Manual) Seg Neutrophils # Seg Neutrophils # Man Lymphocytes # (Manual) Monocytes # (Manual) POC ABG pH 7.310 L ABG pH POC ABG pCO2 52.8 H POC ABG pO2 70 L ABG pO2 ABG HCO3 ABG Base Excess ABG Hemoglobin Oxyhemoglobin Sodium 147 H Potassium Chloride 114.9 H Carbon Dioxide BUN 36 H Creatinine Glucose 165 H POC Glucose Calcium 6.9 L Phosphorus 2.20 L D Magnesium Direct Bilirubin AST Alkaline Phosphatase C-Reactive Protein Serum Total Protein Total Protein Albumin Prealbumin Eqzmv-9-Blbyoqrhw Mhsay-2-Rnfagknpo Gamma Globulins PEP Interpretation Triglycerides Urine pH Urine Creatinine Urine Total Protein Vancomycin Trough Digoxin Crossmatch 10/17/19 10/17/19 10/17/19 05:42 11:33 18:17 WBC RBC Hgb Hct MCHC RDW Plt Count Lymph % (Auto) [place] % (Auto) Lymph # [place] # Seg Neutrophils % Seg Neuts % (Manual) Lymphocytes % (Manual) Seg Neutrophils # Seg Neutrophils # Man Lymphocytes # (Manual) Monocytes # (Manual) POC ABG pH ABG pH POC ABG pCO2 POC ABG pO2 ABG pO2 ABG HCO3 ABG Base Excess ABG Hemoglobin Oxyhemoglobin Sodium Potassium Chloride Carbon Dioxide BUN Creatinine Glucose POC Glucose 149 H 154 H 163 H Calcium Phosphorus Magnesium Direct Bilirubin AST Alkaline Phosphatase C-Reactive Protein Serum Total Protein Total Protein Albumin Prealbumin Lwuke-5-Zyvllybnf Jyyzd-6-Mdltvqqob Gamma Globulins PEP Interpretation Triglycerides Urine pH Urine Creatinine Urine Total Protein Vancomycin Trough Digoxin Crossmatch 10/17/19 10/18/19 10/18/19 23:34 03:29 04:50 WBC RBC Hgb Hct MCHC RDW Plt Count Lymph % (Auto) [place] % (Auto) Lymph # [place] # Seg Neutrophils % Seg Neuts % (Manual) Lymphocytes % (Manual) Seg Neutrophils # Seg Neutrophils # Man Lymphocytes # (Manual) Monocytes # (Manual) POC ABG pH ABG pH POC ABG pCO2 POC ABG pO2 ABG pO2 78.8 L ABG HCO3 ABG Base Excess ABG Hemoglobin 8.8 L Oxyhemoglobin Sodium Potassium Chloride 111.8 H Carbon Dioxide BUN 27 H Creatinine 0.6 L Glucose 140 H POC Glucose 135 H Calcium 7.1 L Phosphorus 1.80 L Magnesium Direct Bilirubin AST Alkaline Phosphatase C-Reactive Protein Serum Total Protein Total Protein Albumin Prealbumin Nptid-8-Hsyywddyz Fdaaa-3-Ktrlahued Gamma Globulins PEP Interpretation Triglycerides Urine pH Urine Creatinine Urine Total Protein Vancomycin Trough Digoxin Crossmatch 10/18/19 10/18/19 10/18/19 05:45 11:19 18:26 WBC RBC Hgb Hct MCHC RDW Plt Count Lymph % (Auto) [place] % (Auto) Lymph # [place] # Seg Neutrophils % Seg Neuts % (Manual) Lymphocytes % (Manual) Seg Neutrophils # Seg Neutrophils # Man Lymphocytes # (Manual) Monocytes # (Manual) POC ABG pH ABG pH POC ABG pCO2 POC ABG pO2 ABG pO2 ABG HCO3 ABG Base Excess ABG Hemoglobin Oxyhemoglobin Sodium Potassium Chloride Carbon Dioxide BUN Creatinine Glucose POC Glucose 145 H 152 H 125 H Calcium Phosphorus Magnesium Direct Bilirubin AST Alkaline Phosphatase C-Reactive Protein Serum Total Protein Total Protein Albumin Prealbumin Bnead-8-Lapvqplnq Sraaj-9-Dnflvcbav Gamma Globulins PEP Interpretation Triglycerides Urine pH Urine Creatinine Urine Total Protein Vancomycin Trough Digoxin Crossmatch 10/18/19 10/19/19 10/19/19 23:27 04:21 04:21 WBC RBC Hgb Hct MCHC RDW Plt Count Lymph % (Auto) [place] % (Auto) Lymph # [place] # Seg Neutrophils % Seg Neuts % (Manual) Lymphocytes % (Manual) Seg Neutrophils # Seg Neutrophils # Man Lymphocytes # (Manual) Monocytes # (Manual) POC ABG pH ABG pH POC ABG pCO2 POC ABG pO2 ABG pO2 ABG HCO3 ABG Base Excess ABG Hemoglobin Oxyhemoglobin Sodium Potassium Chloride 108.4 H Carbon Dioxide BUN 22 H Creatinine 0.5 L Glucose 123 H POC Glucose 127 H Calcium 7.4 L Phosphorus 1.80 L Magnesium Direct Bilirubin AST Alkaline Phosphatase C-Reactive Protein Serum Total Protein Total Protein Albumin Prealbumin Bakez-8-Idvzbersb Amevv-2-Decfoomus Gamma Globulins PEP Interpretation Triglycerides Urine pH Urine Creatinine Urine Total Protein Vancomycin Trough Digoxin 0.7 L Crossmatch 10/19/19 10/19/19 10/19/19 05:00 05:35 11:26 WBC RBC Hgb Hct MCHC RDW Plt Count Lymph % (Auto) [place] % (Auto) Lymph # [place] # Seg Neutrophils % Seg Neuts % (Manual) Lymphocytes % (Manual) Seg Neutrophils # Seg Neutrophils # Man Lymphocytes # (Manual) Monocytes # (Manual) POC ABG pH ABG pH 7.456 H POC ABG pCO2 POC ABG pO2 ABG pO2 78.8 L ABG HCO3 ABG Base Excess ABG Hemoglobin 5.6 L Oxyhemoglobin Sodium Potassium Chloride Carbon Dioxide BUN Creatinine Glucose POC Glucose 124 H 111 H Calcium Phosphorus Magnesium Direct Bilirubin AST Alkaline Phosphatase C-Reactive Protein Serum Total Protein Total Protein Albumin Prealbumin Zwuqo-3-Wbfmhwiws Urovz-5-Celzxvnuu Gamma Globulins PEP Interpretation Triglycerides Urine pH Urine Creatinine Urine Total Protein Vancomycin Trough Digoxin Crossmatch 10/19/19 10/20/19 10/20/19 23:23 04:50 05:17 WBC RBC Hgb Hct MCHC RDW Plt Count Lymph % (Auto) [place] % (Auto) Lymph # [place] # Seg Neutrophils % Seg Neuts % (Manual) Lymphocytes % (Manual) Seg Neutrophils # Seg Neutrophils # Man Lymphocytes # (Manual) Monocytes # (Manual) POC ABG pH ABG pH POC ABG pCO2 POC ABG pO2 ABG pO2 ABG HCO3 ABG Base Excess ABG Hemoglobin Oxyhemoglobin Sodium Potassium Chloride 108.1 H Carbon Dioxide BUN Creatinine 0.4 L Glucose 134 H POC Glucose 129 H 123 H Calcium 7.1 L Phosphorus Magnesium Direct Bilirubin AST Alkaline Phosphatase C-Reactive Protein Serum Total Protein Total Protein Albumin Prealbumin Xhdpt-9-Jvipktroh Nxarl-0-Zgxsatwne Gamma Globulins PEP Interpretation Triglycerides Urine pH Urine Creatinine Urine Total Protein Vancomycin Trough Digoxin Crossmatch 10/20/19 10/20/19 10/21/19 11:40 19:06 05:08 WBC RBC Hgb Hct MCHC RDW Plt Count Lymph % (Auto) [place] % (Auto) Lymph # [place] # Seg Neutrophils % Seg Neuts % (Manual) Lymphocytes % (Manual) Seg Neutrophils # Seg Neutrophils # Man Lymphocytes # (Manual) Monocytes # (Manual) POC ABG pH ABG pH POC ABG pCO2 POC ABG pO2 ABG pO2 ABG HCO3 ABG Base Excess ABG Hemoglobin Oxyhemoglobin Sodium Potassium Chloride Carbon Dioxide BUN Creatinine Glucose POC Glucose 139 H 117 H 131 H Calcium Phosphorus Magnesium Direct Bilirubin AST Alkaline Phosphatase C-Reactive Protein Serum Total Protein Total Protein Albumin Prealbumin Zhzwn-0-Isagfphjl Szddt-0-Unednrkkd Gamma Globulins PEP Interpretation Triglycerides Urine pH Urine Creatinine Urine Total Protein Vancomycin Trough Digoxin Crossmatch 10/21/19 10/21/19 10/21/19 05:30 12:04 17:31 WBC RBC Hgb Hct MCHC RDW Plt Count Lymph % (Auto) [place] % (Auto) Lymph # [place] # Seg Neutrophils % Seg Neuts % (Manual) Lymphocytes % (Manual) Seg Neutrophils # Seg Neutrophils # Man Lymphocytes # (Manual) Monocytes # (Manual) POC ABG pH ABG pH POC ABG pCO2 POC ABG pO2 ABG pO2 ABG HCO3 ABG Base Excess ABG Hemoglobin Oxyhemoglobin Sodium Potassium Chloride 107.8 H Carbon Dioxide BUN Creatinine 0.5 L Glucose 119 H POC Glucose 119 H 110 H Calcium 7.6 L Phosphorus Magnesium Direct Bilirubin AST Alkaline Phosphatase C-Reactive Protein Serum Total Protein Total Protein Albumin Prealbumin Ddccm-3-Jvqvwfxqp Objsj-0-Jepigipmx Gamma Globulins PEP Interpretation Triglycerides Urine pH Urine Creatinine Urine Total Protein Vancomycin Trough Digoxin Crossmatch 10/22/19 10/22/19 10/22/19 05:14 05:37 12:07 WBC RBC Hgb Hct MCHC RDW Plt Count Lymph % (Auto) [place] % (Auto) Lymph # [place] # Seg Neutrophils % Seg Neuts % (Manual) Lymphocytes % (Manual) Seg Neutrophils # Seg Neutrophils # Man Lymphocytes # (Manual) Monocytes # (Manual) POC ABG pH ABG pH POC ABG pCO2 POC ABG pO2 ABG pO2 ABG HCO3 ABG Base Excess ABG Hemoglobin Oxyhemoglobin Sodium Potassium Chloride Carbon Dioxide BUN Creatinine 0.5 L Glucose 116 H POC Glucose 110 H 126 H Calcium 7.7 L Phosphorus Magnesium Direct Bilirubin AST Alkaline Phosphatase C-Reactive Protein Serum Total Protein Total Protein Albumin Prealbumin Hczue-2-Urwujgcot Vdfhx-8-Sczlvjsea Gamma Globulins PEP Interpretation Triglycerides Urine pH Urine Creatinine Urine Total Protein Vancomycin Trough Digoxin Crossmatch 10/22/19 10/22/19 10/23/19 18:36 23:19 04:39 WBC RBC Hgb Hct MCHC RDW Plt Count Lymph % (Auto) [place] % (Auto) Lymph # [place] # Seg Neutrophils % Seg Neuts % (Manual) Lymphocytes % (Manual) Seg Neutrophils # Seg Neutrophils # Man Lymphocytes # (Manual) Monocytes # (Manual) POC ABG pH ABG pH POC ABG pCO2 POC ABG pO2 ABG pO2 ABG HCO3 ABG Base Excess ABG Hemoglobin Oxyhemoglobin Sodium Potassium Chloride Carbon Dioxide BUN Creatinine Glucose POC Glucose 120 H 127 H 112 H Calcium Phosphorus Magnesium Direct Bilirubin AST Alkaline Phosphatase C-Reactive Protein Serum Total Protein Total Protein Albumin Prealbumin Lioku-9-Bfgvnboex Szjzz-0-Itgchighh Gamma Globulins PEP Interpretation Triglycerides Urine pH Urine Creatinine Urine Total Protein Vancomycin Trough Digoxin Crossmatch 10/23/19 10/23/19 10/23/19 04:47 05:15 10:44 WBC 18.3 H RBC 2.33 L Hgb 7.0 L Hct 21.5 L MCHC RDW 16.2 H Plt Count Lymph % (Auto) 4.9 L [place] % (Auto) 8.1 H Lymph # 0.9 L [place] # 1.5 H Seg Neutrophils % 86.7 H Seg Neuts % (Manual) Lymphocytes % (Manual) Seg Neutrophils # 15.9 H Seg Neutrophils # Man Lymphocytes # (Manual) Monocytes # (Manual) POC ABG pH ABG pH POC ABG pCO2 POC ABG pO2 ABG pO2 68.9 L ABG HCO3 28.7 H ABG Base Excess 3.4 H ABG Hemoglobin 6.6 L Oxyhemoglobin 94.1 L Sodium Potassium Chloride Carbon Dioxide BUN Creatinine 0.5 L Glucose 165 H POC Glucose Calcium 7.4 L Phosphorus Magnesium Direct Bilirubin AST Alkaline Phosphatase C-Reactive Protein Serum Total Protein Total Protein Albumin Prealbumin Kdjbr-9-Dmqwuouzr Gzlxu-5-Hbbhdumcn Gamma Globulins PEP Interpretation Triglycerides Urine pH Urine Creatinine Urine Total Protein Vancomycin Trough Digoxin Crossmatch 10/23/19 10/23/19 10/23/19 10:44 11:46 11:50 WBC RBC Hgb Hct MCHC RDW Plt Count Lymph % (Auto) [place] % (Auto) Lymph # [place] # Seg Neutrophils % Seg Neuts % (Manual) Lymphocytes % (Manual) Seg Neutrophils # Seg Neutrophils # Man Lymphocytes # (Manual) Monocytes # (Manual) POC ABG pH ABG pH POC ABG pCO2 POC ABG pO2 ABG pO2 ABG HCO3 ABG Base Excess ABG Hemoglobin Oxyhemoglobin Sodium Potassium Chloride Carbon Dioxide BUN Creatinine Glucose POC Glucose 138 H Calcium Phosphorus Magnesium Direct Bilirubin 0.7 H AST Alkaline Phosphatase C-Reactive Protein Serum Total Protein Total Protein 4.5 L Albumin 1.2 L Prealbumin Dkgkz-0-Ojdfwydom Aiucg-3-Brtxzabuk Gamma Globulins PEP Interpretation Triglycerides Urine pH Urine Creatinine Urine Total Protein Vancomycin Trough Digoxin Crossmatch See Detail 10/23/19 10/24/19 10/24/19 17:53 00:07 05:05 WBC RBC Hgb Hct MCHC RDW Plt Count Lymph % (Auto) [place] % (Auto) Lymph # [place] # Seg Neutrophils % Seg Neuts % (Manual) Lymphocytes % (Manual) Seg Neutrophils # Seg Neutrophils # Man Lymphocytes # (Manual) Monocytes # (Manual) POC ABG pH ABG pH POC ABG pCO2 POC ABG pO2 ABG pO2 ABG HCO3 ABG Base Excess ABG Hemoglobin Oxyhemoglobin Sodium Potassium 3.5 L Chloride Carbon Dioxide BUN Creatinine 0.5 L Glucose 116 H POC Glucose 137 H 110 H Calcium 8.0 L Phosphorus Magnesium Direct Bilirubin AST Alkaline Phosphatase C-Reactive Protein Serum Total Protein Total Protein Albumin Prealbumin Hedoz-8-Ojrvslrvb Wotyf-2-Epodbxiim Gamma Globulins PEP Interpretation Triglycerides Urine pH Urine Creatinine Urine Total Protein Vancomycin Trough Digoxin Crossmatch 10/24/19 10/24/19 10/24/19 05:05 11:56 13:00 WBC 13.0 H RBC 2.73 L Hgb 8.0 L Hct 24.2 L MCHC RDW 17.9 H Plt Count Lymph % (Auto) 7.0 L [place] % (Auto) 9.5 H Lymph # 0.9 L [place] # 1.2 H Seg Neutrophils % 82.7 H Seg Neuts % (Manual) Lymphocytes % (Manual) Seg Neutrophils # 10.7 H Seg Neutrophils # Man Lymphocytes # (Manual) Monocytes # (Manual) POC ABG pH ABG pH POC ABG pCO2 POC ABG pO2 ABG pO2 ABG HCO3 ABG Base Excess ABG Hemoglobin Oxyhemoglobin Sodium Potassium Chloride Carbon Dioxide BUN Creatinine Glucose POC Glucose 159 H Calcium Phosphorus Magnesium Direct Bilirubin AST Alkaline Phosphatase C-Reactive Protein Serum Total Protein Total Protein Albumin Prealbumin Ydkvd-5-Lfrksaswy Pnxid-8-Trrsskzlj Gamma Globulins PEP Interpretation Triglycerides 216 H Urine pH Urine Creatinine Urine Total Protein Vancomycin Trough Digoxin Crossmatch 10/24/19 10/24/19 10/25/19 17:42 23:45 04:19 WBC RBC Hgb Hct MCHC RDW Plt Count Lymph % (Auto) [place] % (Auto) Lymph # [place] # Seg Neutrophils % Seg Neuts % (Manual) Lymphocytes % (Manual) Seg Neutrophils # Seg Neutrophils # Man Lymphocytes # (Manual) Monocytes # (Manual) POC ABG pH ABG pH POC ABG pCO2 POC ABG pO2 ABG pO2 ABG HCO3 ABG Base Excess ABG Hemoglobin Oxyhemoglobin Sodium 147 H Potassium Chloride Carbon Dioxide 33 H BUN Creatinine 0.5 L Glucose 111 H POC Glucose 120 H 116 H Calcium Phosphorus Magnesium Direct Bilirubin AST Alkaline Phosphatase C-Reactive Protein Serum Total Protein Total Protein 5.7 L D Albumin 2.5 L Prealbumin Zsory-9-Swoheeede Tqpce-7-Pbtxvhcyl Gamma Globulins PEP Interpretation Triglycerides 230 H Urine pH Urine Creatinine Urine Total Protein Vancomycin Trough Digoxin Crossmatch 10/25/19 10/25/19 10/25/19 04:19 05:31 12:20 WBC RBC 2.69 L Hgb 8.1 L Hct 23.9 L MCHC RDW 17.3 H Plt Count Lymph % (Auto) [place] % (Auto) Lymph # [place] # Seg Neutrophils % Seg Neuts % (Manual) Lymphocytes % (Manual) Seg Neutrophils # Seg Neutrophils # Man Lymphocytes # (Manual) Monocytes # (Manual) POC ABG pH ABG pH POC ABG pCO2 POC ABG pO2 ABG pO2 ABG HCO3 ABG Base Excess ABG Hemoglobin Oxyhemoglobin Sodium Potassium Chloride Carbon Dioxide BUN Creatinine Glucose POC Glucose 126 H 114 H Calcium Phosphorus Magnesium Direct Bilirubin AST Alkaline Phosphatase C-Reactive Protein Serum Total Protein Total Protein Albumin Prealbumin Ickop-7-Dijbxuijs Bovud-5-Tmkjyvfxv Gamma Globulins PEP Interpretation Triglycerides Urine pH Urine Creatinine Urine Total Protein Vancomycin Trough Digoxin Crossmatch 10/25/19 10/25/19 10/26/19 18:30 23:09 06:15 WBC RBC Hgb Hct MCHC RDW Plt Count Lymph % (Auto) [place] % (Auto) Lymph # [place] # Seg Neutrophils % Seg Neuts % (Manual) Lymphocytes % (Manual) Seg Neutrophils # Seg Neutrophils # Man Lymphocytes # (Manual) Monocytes # (Manual) POC ABG pH ABG pH POC ABG pCO2 POC ABG pO2 ABG pO2 ABG HCO3 ABG Base Excess ABG Hemoglobin Oxyhemoglobin Sodium Potassium 3.5 L Chloride Carbon Dioxide BUN Creatinine 0.5 L Glucose 112 H POC Glucose 121 H 107 H Calcium 8.3 L Phosphorus Magnesium Direct Bilirubin AST Alkaline Phosphatase 148 H C-Reactive Protein Serum Total Protein Total Protein 5.9 L Albumin 2.4 L Prealbumin Rrobg-3-Wnamofzdv Tnyoc-4-Fnubtjsmt Gamma Globulins PEP Interpretation Triglycerides Urine pH Urine Creatinine Urine Total Protein Vancomycin Trough Digoxin Crossmatch 10/26/19 10/26/19 10/26/19 06:15 12:21 17:35 WBC RBC Hgb Hct MCHC RDW Plt Count Lymph % (Auto) [place] % (Auto) Lymph # [place] # Seg Neutrophils % Seg Neuts % (Manual) Lymphocytes % (Manual) Seg Neutrophils # Seg Neutrophils # Man Lymphocytes # (Manual) Monocytes # (Manual) POC ABG pH ABG pH POC ABG pCO2 POC ABG pO2 ABG pO2 ABG HCO3 ABG Base Excess ABG Hemoglobin Oxyhemoglobin Sodium Potassium Chloride Carbon Dioxide BUN Creatinine Glucose POC Glucose 134 H 141 H Calcium Phosphorus Magnesium Direct Bilirubin AST Alkaline Phosphatase C-Reactive Protein Serum Total Protein Total Protein Albumin Prealbumin Dxgdn-7-Mcxavrxva Vovjc-4-Lscxflvtw Gamma Globulins PEP Interpretation Triglycerides 185 H Urine pH Urine Creatinine Urine Total Protein Vancomycin Trough Digoxin Crossmatch 10/26/19 10/27/19 10/27/19 Unknown 04:30 11:33 WBC RBC Hgb Hct MCHC RDW Plt Count Lymph % (Auto) [place] % (Auto) Lymph # [place] # Seg Neutrophils % Seg Neuts % (Manual) Lymphocytes % (Manual) Seg Neutrophils # Seg Neutrophils # Man Lymphocytes # (Manual) Monocytes # (Manual) POC ABG pH ABG pH POC ABG pCO2 POC ABG pO2 ABG pO2 ABG HCO3 ABG Base Excess ABG Hemoglobin Oxyhemoglobin Sodium Potassium 3.2 L Chloride Carbon Dioxide BUN 23 H Creatinine 0.6 L Glucose 130 H POC Glucose 131 H Calcium 7.9 L Phosphorus Magnesium Direct Bilirubin AST Alkaline Phosphatase C-Reactive Protein Serum Total Protein Total Protein Albumin Prealbumin Gszqp-8-Xoftwdiqv Kthoa-4-Qusmixevc Gamma Globulins PEP Interpretation Triglycerides Urine pH 9.0 H Urine Creatinine Urine Total Protein Vancomycin Trough Digoxin Crossmatch 10/27/19 10/28/19 10/28/19 17:45 05:25 05:49 WBC RBC 2.85 L Hgb 8.3 L Hct 26.8 L MCHC 31 L RDW 17.4 H Plt Count Lymph % (Auto) 8.9 L [place] % (Auto) 14.3 H Lymph # 0.8 L [place] # 1.3 H Seg Neutrophils % 76.5 H Seg Neuts % (Manual) Lymphocytes % (Manual) Seg Neutrophils # Seg Neutrophils # Man Lymphocytes # (Manual) Monocytes # (Manual) POC ABG pH ABG pH POC ABG pCO2 POC ABG pO2 ABG pO2 ABG HCO3 ABG Base Excess ABG Hemoglobin Oxyhemoglobin Sodium Potassium Chloride Carbon Dioxide BUN Creatinine Glucose POC Glucose 121 H 120 H Calcium Phosphorus Magnesium Direct Bilirubin AST Alkaline Phosphatase C-Reactive Protein Serum Total Protein Total Protein Albumin Prealbumin Czxqh-5-Znyjmdslz Gqipq-9-Ccwaefmqa Gamma Globulins PEP Interpretation Triglycerides Urine pH Urine Creatinine Urine Total Protein Vancomycin Trough Digoxin Crossmatch 10/28/19 10/28/19 10/28/19 07:19 12:07 18:21 WBC RBC Hgb Hct MCHC RDW Plt Count Lymph % (Auto) [place] % (Auto) Lymph # [place] # Seg Neutrophils % Seg Neuts % (Manual) Lymphocytes % (Manual) Seg Neutrophils # Seg Neutrophils # Man Lymphocytes # (Manual) Monocytes # (Manual) POC ABG pH ABG pH POC ABG pCO2 POC ABG pO2 ABG pO2 ABG HCO3 ABG Base Excess ABG Hemoglobin Oxyhemoglobin Sodium Potassium Chloride Carbon Dioxide BUN 23 H Creatinine 0.5 L Glucose 129 H POC Glucose 127 H 130 H Calcium 8.0 L Phosphorus Magnesium Direct Bilirubin AST Alkaline Phosphatase C-Reactive Protein Serum Total Protein Total Protein Albumin Prealbumin Csfat-0-Dkystjcma Gbiar-8-Poxgxtinc Gamma Globulins PEP Interpretation Triglycerides Urine pH Urine Creatinine Urine Total Protein Vancomycin Trough Digoxin Crossmatch 10/28/19 10/29/19 10/29/19 23:30 05:30 05:30 WBC 11.2 H RBC 3.36 L Hgb 9.7 L Hct 29.4 L MCHC RDW 16.7 H Plt Count Lymph % (Auto) [place] % (Auto) 16.0 H Lymph # [place] # 1.8 H Seg Neutrophils % 70.2 H Seg Neuts % (Manual) Lymphocytes % (Manual) Seg Neutrophils # 7.9 H Seg Neutrophils # Man Lymphocytes # (Manual) Monocytes # (Manual) POC ABG pH ABG pH POC ABG pCO2 POC ABG pO2 ABG pO2 ABG HCO3 ABG Base Excess ABG Hemoglobin Oxyhemoglobin Sodium Potassium Chloride Carbon Dioxide BUN 23 H Creatinine 0.5 L Glucose POC Glucose 130 H Calcium 8.3 L Phosphorus Magnesium Direct Bilirubin AST Alkaline Phosphatase C-Reactive Protein Serum Total Protein Total Protein Albumin Prealbumin Avaqa-7-Hotlpdnad Qmper-3-Zwwvzxdme Gamma Globulins PEP Interpretation Triglycerides Urine pH Urine Creatinine Urine Total Protein Vancomycin Trough Digoxin Crossmatch 10/29/19 10/29/19 10/29/19 05:52 13:10 18:02 WBC RBC Hgb Hct MCHC RDW Plt Count Lymph % (Auto) [place] % (Auto) Lymph # [place] # Seg Neutrophils % Seg Neuts % (Manual) Lymphocytes % (Manual) Seg Neutrophils # Seg Neutrophils # Man Lymphocytes # (Manual) Monocytes # (Manual) POC ABG pH ABG pH POC ABG pCO2 POC ABG pO2 ABG pO2 ABG HCO3 ABG Base Excess ABG Hemoglobin Oxyhemoglobin Sodium Potassium Chloride Carbon Dioxide BUN Creatinine Glucose POC Glucose 111 H 140 H 140 H Calcium Phosphorus Magnesium Direct Bilirubin AST Alkaline Phosphatase C-Reactive Protein Serum Total Protein Total Protein Albumin Prealbumin Tcznp-8-Ggazxjepu Ornuk-5-Yqqjofeus Gamma Globulins PEP Interpretation Triglycerides Urine pH Urine Creatinine Urine Total Protein Vancomycin Trough Digoxin Crossmatch 10/29/19 10/30/19 10/30/19 23:58 01:05 05:15 WBC RBC Hgb Hct MCHC RDW Plt Count Lymph % (Auto) [place] % (Auto) Lymph # [place] # Seg Neutrophils % Seg Neuts % (Manual) Lymphocytes % (Manual) Seg Neutrophils # Seg Neutrophils # Man Lymphocytes # (Manual) Monocytes # (Manual) POC ABG pH ABG pH POC ABG pCO2 62.0 H POC ABG pO2 168 H ABG pO2 ABG HCO3 ABG Base Excess ABG Hemoglobin Oxyhemoglobin Sodium 147 H Potassium Chloride 107.8 H Carbon Dioxide BUN 26 H Creatinine 0.5 L Glucose 139 H POC Glucose 161 H Calcium Phosphorus Magnesium 2.40 H Direct Bilirubin AST Alkaline Phosphatase C-Reactive Protein Serum Total Protein Total Protein Albumin Prealbumin Bkcme-5-Gsqoqsrwh Lrjty-6-Zjnsmupze Gamma Globulins PEP Interpretation Triglycerides Urine pH Urine Creatinine Urine Total Protein Vancomycin Trough Digoxin Crossmatch 10/30/19 10/30/19 10/30/19 05:15 06:32 09:44 WBC 13.8 H RBC 3.59 L Hgb 10.1 L Hct 32.4 L MCHC 31 L RDW 17.4 H Plt Count Lymph % (Auto) 11.2 L [place] % (Auto) 13.6 H Lymph # [place] # 1.9 H Seg Neutrophils % 75.1 H Seg Neuts % (Manual) Lymphocytes % (Manual) Seg Neutrophils # 10.4 H Seg Neutrophils # Man Lymphocytes # (Manual) Monocytes # (Manual) POC ABG pH ABG pH POC ABG pCO2 51.7 H POC ABG pO2 111 H ABG pO2 ABG HCO3 ABG Base Excess ABG Hemoglobin Oxyhemoglobin Sodium Potassium Chloride Carbon Dioxide BUN Creatinine Glucose POC Glucose 141 H Calcium Phosphorus Magnesium Direct Bilirubin AST Alkaline Phosphatase C-Reactive Protein Serum Total Protein Total Protein Albumin Prealbumin Neumx-1-Ulxnkprvo Qxzhh-5-Hfpwxpjqt Gamma Globulins PEP Interpretation Triglycerides Urine pH Urine Creatinine Urine Total Protein Vancomycin Trough Digoxin Crossmatch 10/30/19 10/31/19 10/31/19 18:10 04:18 04:18 WBC 11.7 H RBC 3.11 L Hgb 9.0 L Hct 27.9 L MCHC RDW 17.1 H Plt Count Lymph % (Auto) [place] % (Auto) Lymph # [place] # Seg Neutrophils % Seg Neuts % (Manual) Lymphocytes % (Manual) Seg Neutrophils # Seg Neutrophils # Man Lymphocytes # (Manual) Monocytes # (Manual) POC ABG pH ABG pH POC ABG pCO2 POC ABG pO2 ABG pO2 ABG HCO3 ABG Base Excess ABG Hemoglobin Oxyhemoglobin Sodium 148 H Potassium Chloride 108.7 H Carbon Dioxide BUN 37 H Creatinine 0.7 L Glucose 102 H POC Glucose 131 H Calcium Phosphorus Magnesium Direct Bilirubin AST Alkaline Phosphatase C-Reactive Protein Serum Total Protein Total Protein Albumin Prealbumin Qgzvv-9-Vmkonssnl Pbbtm-8-Oecmvibgc Gamma Globulins PEP Interpretation Triglycerides Urine pH Urine Creatinine Urine Total Protein Vancomycin Trough Digoxin Crossmatch 10/31/19 10/31/19 10/31/19 11:32 12:55 18:10 WBC RBC Hgb Hct MCHC RDW Plt Count Lymph % (Auto) [place] % (Auto) Lymph # [place] # Seg Neutrophils % Seg Neuts % (Manual) Lymphocytes % (Manual) Seg Neutrophils # Seg Neutrophils # Man Lymphocytes # (Manual) Monocytes # (Manual) POC ABG pH ABG pH POC ABG pCO2 57.9 H POC ABG pO2 135 H ABG pO2 ABG HCO3 ABG Base Excess ABG Hemoglobin Oxyhemoglobin Sodium Potassium Chloride Carbon Dioxide BUN Creatinine Glucose POC Glucose 120 H Calcium Phosphorus Magnesium Direct Bilirubin AST Alkaline Phosphatase C-Reactive Protein Serum Total Protein Total Protein Albumin Prealbumin Yksnf-2-Mtyuhtfed Fyzbf-2-Llaztuetd Gamma Globulins PEP Interpretation Triglycerides Urine pH Urine Creatinine Urine Total Protein Vancomycin Trough 41.7 H Digoxin Crossmatch 10/31/19 11/01/19 11/01/19 23:08 05:30 05:30 WBC 14.6 H RBC 3.13 L Hgb 8.9 L Hct 27.7 L MCHC RDW 17.0 H Plt Count Lymph % (Auto) [place] % (Auto) Lymph # [place] # Seg Neutrophils % Seg Neuts % (Manual) Lymphocytes % (Manual) Seg Neutrophils # Seg Neutrophils # Man Lymphocytes # (Manual) Monocytes # (Manual) POC ABG pH ABG pH POC ABG pCO2 POC ABG pO2 ABG pO2 ABG HCO3 ABG Base Excess ABG Hemoglobin Oxyhemoglobin Sodium 149 H Potassium Chloride 109.0 H Carbon Dioxide BUN 26 H Creatinine 0.7 L Glucose 129 H POC Glucose 109 H Calcium Phosphorus Magnesium Direct Bilirubin AST Alkaline Phosphatase C-Reactive Protein Serum Total Protein Total Protein Albumin Prealbumin Dwzbn-1-Nkngltfog Fthzo-7-Chsukvbzr Gamma Globulins PEP Interpretation Triglycerides Urine pH Urine Creatinine Urine Total Protein Vancomycin Trough Digoxin Crossmatch 11/01/19 11/01/19 06:09 06:10 WBC RBC Hgb Hct MCHC RDW Plt Count Lymph % (Auto) [place] % (Auto) Lymph # [place] # Seg Neutrophils % Seg Neuts % (Manual) Lymphocytes % (Manual) Seg Neutrophils # Seg Neutrophils # Man Lymphocytes # (Manual) Monocytes # (Manual) POC ABG pH ABG pH POC ABG pCO2 51.3 H POC ABG pO2 71 L ABG pO2 ABG HCO3 ABG Base Excess ABG Hemoglobin Oxyhemoglobin Sodium Potassium Chloride Carbon Dioxide BUN Creatinine Glucose POC Glucose 113 H Calcium Phosphorus Magnesium Direct Bilirubin AST Alkaline Phosphatase C-Reactive Protein Serum Total Protein Total Protein Albumin Prealbumin Dzlpf-9-Mpkvnfdyv Iyxsu-1-Bvyaiarbr Gamma Globulins PEP Interpretation Triglycerides Urine pH Urine Creatinine Urine Total Protein Vancomycin Trough Digoxin Crossmatch
--- NOTE | 2019-11-01 10:54 | Progress Note ---
Assessment and Plan Assessment and plan: Sepsis, recurrent. Patient with new fevers that have been persistent. ID restarted antibiotics. Etiology likely secondary to fluid collection/abscess in the abdomen and anastomotic leak. Follow-up blood culture, fungal blood culture, UA, urine culture, CXR ordered. Whitfield was removed and urinalysis sent. Given recent prolonged exposure to abx and TPN, at risk of MDR infections, ID started empiric Meropenem and Micafungin Dehiscence of closure of fascia * Went to OR for ex lap with closure of abdominal wall and wound vac placement (10/05) * Continued to decline with possible Air vs fluid, 10/10/19 IR went in and placed two drains, Noted to have possible fecal material * Returned to the OR 10/13/19 due to concern for intra-abdominal infection and was found to have with heavy contamination of abdomen patent had disruption of bowel anastomosis, abdominal washout, abthera placement and colon stapled transection and left bowel enterotomy from anastomosis completely open * Returned to OR on 10/16/19 for abdominal washout, Partial Omentectomy, Partial Colectomy, Colostomy Creation and AbThera Placement * Abdominal washout and closure - 10/22 * cont wound care * * Acute Respiratory failure with hypoxia -Extubated 10/25/19 - Re-intubated 10/30 -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 On Merrem, Mifungin ID Physician following right sump drain fell out Surgeon following Left pneumothorax s/p chest tube placed 10/30 Left lower lobe pneumonia -Continue IV antibiotic -CTA chest showed left lower lobe consolidation with pleural effusion GUILLERMO on CRF -probably ATN due to sepsis -Improving, will monitor -SPEP and UPEP pending -No hydronephrosis on CT -Whitfield in place, monitor I/O's Severe Metabolic acidosis -Improved Acute Toxic Metabolic Encephalopathy/Delirium Tremens -Started on CIWA protocol due to hx of ETOH abuse, 6packs a day -Head CT scan negative for acute findings Acute blood loss anemia -H/H stable -Continue to monitor H&H and transfuse for hb<7 SVT, Atrial fib/flutter with RVR -treated with adenosine x1 -off amiodarone and cardizem drip. On oral amiodarone and IV Lopressor. -HR currently controlled -Cardiology following Hypotension -Off esmolol drip -s/p IV fluid boluses, BP stable Hypophosphatemia -will monitor level Hx of Hypertension -Stable Hyperlipidemia -stable Atypical chest pain -probably secondary to pneumonitis -troponin levels neg Hx of [place]/CAD -s/p PCI of the circumflex and second vessel POBA of the distal LAD occlusion. Left ventricle fraction of 45-50%. Morbid obesity with BMI of 45.4 -Lifestyle modification recommended COPD -Stable -cont neb tx Moderate Protein calorie malnutrition secondary to surgery -On TPN -Nutrition following Tobacco abuse -Cessation recommended Morbid obesity with BMI of 45.4 -Lifestyle modification recommended DVT and GI ppx: Lovenox/PPI Disp: Prognosis guarded The high probability of a clinically significant, sudden or life threatening deterioration of the [respiratory] system(s) required my full and direct attention, intervention and personal management. The aggregate critical care time was [31] minutes. This time is in addition to time spent performing reported procedures but includes the following: [x] Data Review and interpretation [x] Patient assessment and monitoring of vital signs [x] Documentation [x] Medication orders and management History Interval history: Re-intubated 10/30 Fever of 101 today Hospitalist Physical - Physical exam Narrative exam: Gen: Not in acute distress, Intubated, sedated HEENT: Normocephalic, atraumatic Neck: supple, no JVD Heart: S1 and S2 reg, no murmurs, rubs or gallop Lungs: Chest tube on left, Abd: soft, NT, ostomy, wound vac, left drain Ext: No edema, no clubbing no cyanosis Neuro: Intubated, sedated - Constitutional Vitals: Temp Pulse Resp BP Pulse Ox 101.0 F H 96 H 25 H 155/72 98 11/01/19 08:00 11/01/19 09:38 11/01/19 09:00 11/01/19 09:38 11/01/19 09:00 General appearance: Present: no acute distress, obese Results - Labs CBC & Chem 7: 11/01/19 05:30 11/01/19 05:30 Labs: Laboratory Last Values WBC 14.6 K/mm3 (4.5-11.0) H 11/01/19 05:30 RBC 3.13 M/mm3 (3.65-5.03) L 11/01/19 05:30 Hgb 8.9 gm/dl (11.8-15.2) L 11/01/19 05:30 Hct 27.7 % (35.5-45.6) L 11/01/19 05:30 MCV 89 fl (84-94) 11/01/19 05:30 MCH 28 pg (28-32) 11/01/19 05:30 MCHC 32 % (32-34) 11/01/19 05:30 RDW 17.0 % (13.2-15.2) H 11/01/19 05:30 Plt Count 355 K/mm3 (140-440) 11/01/19 05:30 Lymph % (Auto) 11.2 % (13.4-35.0) L 10/30/19 05:15 [place] % (Auto) 13.6 % (0.0-7.3) H 10/30/19 05:15 Eos % (Auto) 0.0 % (0.0-4.3) 10/30/19 05:15 Baso % (Auto) 0.1 % (0.0-1.8) 10/30/19 05:15 Lymph # 1.5 K/mm3 (1.2-5.4) 10/30/19 05:15 [place] # 1.9 K/mm3 (0.0-0.8) H 10/30/19 05:15 Eos # 0.0 K/mm3 (0.0-0.4) 10/30/19 05:15 Baso # 0.0 K/mm3 (0.0-0.1) 10/30/19 05:15 Add Manual Diff Complete 10/16/19 09:20 Total Counted 100 10/16/19 09:20 Seg Neutrophils % 75.1 % (40.0-70.0) H 10/30/19 05:15 Seg Neuts % (Manual) 79.0 % (40.0-70.0) H 10/16/19 09:20 Band Neutrophils % 12.0 % 10/16/19 09:20 Lymphocytes % (Manual) 4.0 % (13.4-35.0) L 10/16/19 09:20 Reactive Lymphs % (Man) 0 % 10/16/19 09:20 Monocytes % (Manual) 2.0 % (0.0-7.3) 10/16/19 09:20 Eosinophils % (Manual) 0 % (0.0-4.3) 10/16/19 09:20 Basophils % (Manual) 0 % (0.0-1.8) 10/16/19 09:20 Metamyelocytes % 2.0 % 10/16/19 09:20 Myelocytes % 1.0 % 10/16/19 09:20 Promyelocytes % 0 % 10/16/19 09:20 Blast Cells % 0 % 10/16/19 09:20 Nucleated RBC % Not Reportable 10/16/19 09:20 Seg Neutrophils # 10.4 K/mm3 (1.8-7.7) H 10/30/19 05:15 Seg Neutrophils # Man 11.5 K/mm3 (1.8-7.7) H 10/16/19 09:20 Band Neutrophils # 1.8 K/mm3 10/16/19 09:20 Lymphocytes # (Manual) 0.6 K/mm3 (1.2-5.4) L 10/16/19 09:20 Abs React Lymphs (Man) 0.0 K/mm3 10/16/19 09:20 Monocytes # (Manual) 0.3 K/mm3 (0.0-0.8) 10/16/19 09:20 Eosinophils # (Manual) 0.0 K/mm3 (0.0-0.4) 10/16/19 09:20 Basophils # (Manual) 0.0 K/mm3 (0.0-0.1) 10/16/19 09:20 Metamyelocytes # 0.3 K/mm3 10/16/19 09:20 Myelocytes # 0.1 K/mm3 10/16/19 09:20 Promyelocytes # 0.0 K/mm3 10/16/19 09:20 Blast Cells # 0.0 K/mm3 10/16/19 09:20 WBC Morphology Not Reportable 10/16/19 09:20 Hypersegmented Neuts Not Reportable 10/16/19 09:20 Hyposegmented Neuts Not Reportable 10/16/19 09:20 Hypogranular Neuts Not Reportable 10/16/19 09:20 Smudge Cells Not Reportable 10/16/19 09:20 Toxic Granulation Not Reportable 10/16/19 09:20 Toxic Vacuolation Not Reportable 10/16/19 09:20 Dohle Bodies Not Reportable 10/16/19 09:20 Pelger-Huet Anomaly Not Reportable 10/16/19 09:20 Andres Rods Not Reportable 10/16/19 09:20 Platelet Estimate Consistent w auto 10/16/19 09:20 Clumped Platelets Not Reportable 10/16/19 09:20 Plt Clumps, EDTA Not Reportable 10/16/19 09:20 Large Platelets Not Reportable 10/16/19 09:20 Giant Platelets Not Reportable 10/16/19 09:20 Platelet Satelliting Not Reportable 10/16/19 09:20 Plt Morphology Comment Not Reportable 10/16/19 09:20 RBC Morphology Not Reportable 10/16/19 09:20 Dimorphic RBCs Not Reportable 10/16/19 09:20 Polychromasia Few 10/16/19 09:20 Hypochromasia Few 10/16/19 09:20 Poikilocytosis Not Reportable 10/16/19 09:20 Anisocytosis Not Reportable 10/16/19 09:20 Microcytosis Not Reportable 10/16/19 09:20 Macrocytosis Not Reportable 10/16/19 09:20 Spherocytes Not Reportable 10/16/19 09:20 Pappenheimer Bodies Not Reportable 10/16/19 09:20 Sickle Cells Not Reportable 10/16/19 09:20 Target Cells Few 10/16/19 09:20 Tear Drop Cells Not Reportable 10/16/19 09:20 Ovalocytes Not Reportable 10/16/19 09:20 Helmet Cells Not Reportable 10/16/19 09:20 [place] Bodies Not Reportable 10/16/19 09:20 Vancleve Rings Not Reportable 10/16/19 09:20 Bishnu Cells Not Reportable 10/16/19 09:20 Bite Cells Not Reportable 10/16/19 09:20 Crenated Cell Not Reportable 10/16/19 09:20 Elliptocytes Not Reportable 10/16/19 09:20 Acanthocytes (Spur) Not Reportable 10/16/19 09:20 Rouleaux Not Reportable 10/16/19 09:20 Hemoglobin C Crystals Not Reportable 10/16/19 09:20 Schistocytes Not Reportable 10/16/19 09:20 Malaria parasites Not Reportable 10/16/19 09:20 Toni Bodies Not Reportable 10/16/19 09:20 Hem Pathologist Commnt No 10/16/19 09:20 POC ABG pH 7.407 (7.35-7.45) 11/01/19 06:10 ABG pH 7.390 pH Units (7.350-7.450) 10/23/19 04:47 POC ABG pCO2 51.3 (35-45) H 11/01/19 06:10 ABG pCO2 48.4 mm Hg 10/23/19 04:47 POC ABG pO2 71 (80-105) L 11/01/19 06:10 ABG pO2 68.9 mm Hg (80.0-90.0) L 10/23/19 04:47 POC ABG HCO3 32.3 (22-26 mml/L) 11/01/19 06:10 ABG HCO3 28.7 mmol/L (20.0-26.0) H 10/23/19 04:47 POC ABG Total CO2 34 (23-27mmol/L) 11/01/19 06:10 POC ABG O2 Sat 94 11/01/19 06:10 ABG O2 Saturation 96.6 % (95.0-99.0) 10/23/19 04:47 ABG O2 Content 8.8 (0.0-44) 10/23/19 04:47 POC ABG Base Excess 8 ((-2) - (+3)mmol/L) 11/01/19 06:10 ABG Base Excess 3.4 mmol/L (-2.0-3.0) H 10/23/19 04:47 ABG Hemoglobin 6.6 gm/dl (14.0-18.0) L 10/23/19 04:47 ABG Carboxyhemoglobin 2.1 % (0.0-5.0) 10/23/19 04:47 ABG Methemoglobin 0.5 % (0.0-1.5) 10/23/19 04:47 Oxyhemoglobin 94.1 % (95.0-99.0) L 10/23/19 04:47 FiO2 40 % 11/01/19 06:10 Sodium 149 mmol/L (137-145) H 11/01/19 05:30 Potassium 4.1 mmol/L (3.6-5.0) 11/01/19 05:30 Chloride 109.0 mmol/L (98-107) H 11/01/19 05:30 Carbon Dioxide 27 mmol/L (22-30) 11/01/19 05:30 Anion Gap 17 mmol/L 11/01/19 05:30 BUN 26 mg/dL (9-20) H 11/01/19 05:30 Creatinine 0.7 mg/dL (0.8-1.5) L 11/01/19 05:30 Estimated GFR > 60 ml/min 11/01/19 05:30 BUN/Creatinine Ratio 37 % 11/01/19 05:30 Glucose 129 mg/dL (75-100) H 11/01/19 05:30 POC Glucose 113 (70-105) H 11/01/19 06:09 Hemoglobin A1c 5.7 % (4-6) 10/06/19 05:36 Lactic Acid 1.10 mmol/L (0.7-2.0) 10/13/19 04:20 Calcium 8.5 mg/dL (8.4-10.2) 11/01/19 05:30 Ionized Calcium 5.2 mg/dL (4.8-5.6) 10/18/19 07:41 Phosphorus 4.30 mg/dL (2.5-4.5) D 10/30/19 05:15 Magnesium 2.40 mg/dL (1.7-2.3) H 10/30/19 05:15 Total Bilirubin 1.10 mg/dL (0.1-1.2) 10/26/19 06:15 Direct Bilirubin 0.7 mg/dL (0-0.2) H 10/23/19 10:44 Indirect Bilirubin 0.1 mg/dL 10/23/19 10:44 AST 23 units/L (5-40) 10/26/19 06:15 ALT 13 units/L (7-56) 10/26/19 06:15 Alkaline Phosphatase 148 units/L (35-129) H 10/26/19 06:15 Ammonia 49.0 umol/L (25-60) 10/13/19 04:20 Troponin T < 0.010 ng/mL (0.00-0.029) 10/09/19 17:23 C-Reactive Protein 30.60 mg/dL (0.00-1.30) H 10/15/19 04:32 Serum Total Protein 5.2 g/dL (6.1-8.1) L 10/11/19 09:00 Total Protein 5.9 g/dL (6.3-8.2) L 10/26/19 06:15 Albumin 2.4 g/dL (3.9-5) L 10/26/19 06:15 Albumin/Globulin Ratio 0.7 % 10/26/19 06:15 Prealbumin 0.030 g/L (0.200-0.400) L 10/15/19 04:32 [id number] See scanned result 10/11/19 Unknown [id number] See scanned result 10/11/19 Unknown Beta Globulins See scanned result 10/11/19 Unknown Gamma Globulins See scanned result 10/11/19 Unknown Abnorm Protein Band 1 see below 10/11/19 09:00 PEP Interpretation See scanned result 10/11/19 Unknown Triglycerides 185 mg/dL (2-149) H 10/26/19 06:15 Urine Color Yellow (Yellow) 10/26/19 Unknown Urine Turbidity Clear (Clear) 10/26/19 Unknown Urine pH 9.0 (5.0-7.0) H 10/26/19 Unknown Ur Specific [place] 1.011 (1.003-1.030) 10/26/19 Unknown Urine Protein 30 mg/dl mg/dL (Negative) 10/26/19 Unknown Urine Glucose (UA) Neg mg/dL (Negative) 10/26/19 Unknown Urine Ketones Neg mg/dL (Negative) 10/26/19 Unknown Urine Blood Neg (Negative) 10/26/19 Unknown Urine Nitrite Neg (Negative) 10/26/19 Unknown Urine Bilirubin Neg (Negative) 10/26/19 Unknown Urine Urobilinogen < 2.0 mg/dL (<2.0) 10/26/19 Unknown Ur Leukocyte Esterase Neg (Negative) 10/26/19 Unknown Urine WBC (Auto) 1.0 /HPF (0.0-6.0) 10/26/19 Unknown Urine RBC (Auto) 1.0 /HPF (0.0-6.0) 10/26/19 Unknown Urine Bacteria (Auto) 1+ /HPF (Negative) 10/11/19 06:23 Urine Mucus Few /HPF 10/26/19 Unknown Urine Eosinophils None seen (None Seen) 10/11/19 06:23 Ur Random Creatinine See scanned result 10/11/19 Unknown U Random Total Protein See scanned result 10/11/19 Unknown Urine Creatinine 116.8 mg/dL (0.1-20.0) H 10/11/19 06:23 Urine Creatinine 118.2 mg/dL (0.1-20.0) H 10/11/19 06:23 Protein/Creatinin Ratio See scanned result 10/11/19 Unknown Urine Sodium 14 mmol/L 10/11/19 06:23 Urine Total Protein 104 mg/dL (5-11.8) H 10/11/19 06:23 Urine Total Protein 105 mg/dL (5-11.8) H 10/11/19 06:23 U Abnormal Prot Band 1 See scanned result 10/11/19 Unknown U Abnormal Prot Band 2 See scanned result 10/11/19 Unknown U Abnormal Prot Band 3 See scanned result 10/11/19 Unknown Vancomycin Trough 41.7 ug/mL (5.0-20.0) H 10/31/19 12:55 Random Vancomycin 20.7 ug/mL (0-40.0) 11/01/19 09:12 Digoxin 0.7 ng/mL (0.9-2.0) L 10/19/19 04:21 Blood Type A POSITIVE 10/23/19 11:50 Antibody Screen Negative 10/23/19 11:50 Crossmatch See Detail 10/23/19 11:50 Active Medications - Current Medications Current Medications: Generic Name Dose Route Start Last Admin Trade Name Abelq PRN Reason Stop Dose Admin Acetaminophen 650 mg 10/25/19 13:00 11/01/19 09:47 Tylenol FEEDTUBE 650 mg Q4H PRN Administration Fever >100.5 Albuterol 2.5 mg 10/05/19 21:36 Proventil IH Q4HRT PRN Shortness Of Breath Albuterol/Ipratropium 1 ampul 10/06/19 02:00 11/01/19 07:31 Duoneb *Not For Prn Use* IH 1 ampul Q6HRT VERÓNICA Administration Amiodarone HCl 200 mg 10/23/19 13:00 11/01/19 09:38 Cordarone PO 200 mg QDAY VERÓNICA Administration Lipase/Protease/Amylase 1 each 10/20/19 10:37 Pancreazanamika Moreno 10,500 Unit FEEDTUBE PRN PRN For Clogged Feeding Tube Arformoterol Tartrate 15 mcg 10/06/19 08:30 11/01/19 07:31 Brovana Nebu IH Not Given Q12HRT [facility] Budesonide 0.5 mg 10/07/19 12:20 11/01/19 07:31 Pulmicort IH 0.5 mg Q12HRT [facility] Administration Citalopram Hydrobromide 20 mg 10/27/19 12:00 11/01/19 09:38 Celexa PO 20 mg DAILY [facility] Administration Enoxaparin Sodium 40 mg 10/30/19 22:00 10/31/19 22:19 Enoxaparin SUB-Q 40 mg QDAY@2200 [facility] Administration Fentanyl 50 mcg 10/25/19 12:35 10/30/19 07:52 Sublimaze IV 50 mcg Q2H PRN Administration PAIN SCORE </=5 Haloperidol Lactate 5 mg 10/25/19 18:22 10/26/19 10:51 Haldol IV 5 mg Q6H PRN Administration Agitation Hydralazine HCl 10 mg 10/28/19 14:09 10/30/19 03:06 Apresoline IV 10 mg Q4HR PRN Administration Hypertension Hydromorphone HCl 2 mg 10/25/19 12:35 10/31/19 23:17 Dilaudid IV 2 mg Q4H PRN Administration PAIN SCORE >/=6 MEROPENEM/NS 1 GRAM/100 ML 1 gram in 100 mls @ 100 mls/hr 10/26/19 18:30 09:38 Merrem/Ns 1 Gram/100 Ml IV 100 mls/hr Q8H [facility] Administration Protocol Micafungin Sodium 100 mg/ 100 mls @ 100 mls/hr 10/26/19 18:30 11/01/19 09:39 Sodium Chloride IV 100 mls/hr QDAY [facility] Administration Protocol Insulin Human Lispro 0 unit 10/14/19 12:00 11/01/19 06:01 Humalog SUB-Q Not Given Q6HR [facility] Protocol Lisinopril 20 mg 10/30/19 10:00 11/01/19 09:38 Zestril PO 20 mg QDAY VERÓNICA Administration Metoprolol Tartrate 2.5 mg 10/15/19 15:34 10/28/19 17:07 Metoprolol IV 2.5 mg Q4HR PRN Administration HR >130 Metoprolol Tartrate 50 mg 10/25/19 14:00 11/01/19 06:00 Metoprolol PO 50 mg Q8HR VERÓNICA Administration Multi-Ingred Cream/Lotion/Oil/Oint 1 applic 10/14/19 02:19 Artificial Tears Ophth Oint OU Q4HR PRN Dry Eye(s) Ondansetron HCl 4 mg 10/05/19 21:22 10/11/19 18:20 Zofran IV 4 mg Q3H PRN Administration Nausea And Vomiting Pantoprazole Sodium 40 mg 10/15/19 10:00 11/01/19 09:38 Protonix IV 40 mg QDAY VERÓNICA Administration Simple Syrup 15 ml 10/20/19 10:37 Simple Syrup FEEDTUBE PRN PRN Hypoglycemia Simple Syrup 30 ml 10/20/19 10:37 Simple Syrup FEEDTUBE PRN PRN Hypoglycemia Sodium Bicarbonate 325 mg 10/20/19 10:37 Sodium Bicarbonate FEEDTUBE PRN PRN For Clogged Feeding Tube Sodium Chloride 10 ml 10/05/19 21:22 10/19/19 09:29 Sodium Chloride Flush Syringe 10 Ml IV 10 ml PRN PRN Administration LINE FLUSH Nutrition/Malnutrition Assess - Dietary Evaluation Nutrition/Malnutrition Findings: Nutrition Notes Start: 10/08/19 11:36 Freq: Status: Active Protocol: Document 10/31/19 11:07 DW (Rec: 10/31/19 11:18 DW [id number]) Co-Sign 10/31/19 11:07 LP Nutrition Notes Initial or Follow up Reassessment Current Diagnosis Acute Kidney Injury,COPD, Hypertension Other Pertinent Diagnosis intra-abdominal infection, disruption of bowel anastomosis, LE edema Current Diet Vital 1.2 at 70 ml/hr Labs/Tests Na 148 BUN 37 Cr 0.7 Pertinent Medications Reviewed Height 6 ft Weight 145 kg [place] Body Weight (kg) 80.90 BMI 43.3 Subjective/Other Information FU TF tolerance Upon arrival noticed Vital 1.2 running at 60 ml/hr Percent of energy/protein needs met: 85%/53% Burn Absent Trauma Absent GI Symptoms None Current % PO Negligible Minimum of two criteria No Fluid Accumulation Mild (non-severe) #2 Nutrition Diagnosis Inadequate oral intake Diagnosis Progress(for reassessment Continues documentation) #1 Nutrition Diagnosis Increased nutrient needs ( specify in comment below) Diagnosis Progress(for reassessment Continues documentation) Is patient on ventilator? Yes Is Patient Ambulatory and/or Out of Bed No REE-(Call-St. Jeor-confined to bed) [phone] Kcal/Kg value to use for calculation 14 Approximate Energy Requirements Using 2030 kcal/Kg Calculation Used for Recommendations Kcal/kg Additional Notes Protein: 202g (up to 2.5 g/kg IBW 80.9 kg) Pay attention to renal issues Fluid: 1 ml/kcal or per MD Nutrition Intervention Change Diet Order: Continue TF Nutrition Support: Vital AF at 70ml/hr Flush 125 ml q2hr for hypernatremia Once resolved flush 100ml q4hr Kcal 2,016 Protein (gm) 126 Fluid (mL) 1,362 Goal #1 Meet energy and protein needs as best as possible via TF Goal #2 TF tolerance Anticipated Discharge Needs: unable to determine at this time Follow-Up By: 11/02/19 Additional Comments FU TF tolerance and Na labs
[2019-11-01] MEDS: HYDROmorphone 2 MG/1 ML INJ IV PRN ×2 (11:17→18:43)
--- NOTE | 2019-11-01 12:37 | Progress Note ---
Assessment and Plan Cultures 10/10/2019 surgical culture: No growth at 72 hours 10/13/2019 tracheal aspirate culture: No growth 10/13/2019 peritoneal fluid: Enterococcus species (S to Penicillin, Vancomycin) 10/15/2019 blood culture: no growth 10/26/2019 urine culture: no growth thus far 10/26/2019 blood culture: no growth at 24 hours Assessment: 54 yo M PMhx CAD, COPD, recent complicated course of bowel perforation after a colonoscopy admitted with surgical site dehiscence of the fascia. Now with: # Acute sepsis - present with leukocytosis and tachycardia. Most likely secondary to fluid collection/abscess in the abdomen and anastomotic leak. # New fevers: new fevers on 10/25 and 10/26. Ongoing work up and empiric abx. Has indwelling PICC, Whitfield was removed 10/26. UA unremarkable for infection. # Intra-abdominal infection from anastomotic leak - s/p ex lap with closure of abdominal wall and wound vac placement (10/05/2019); s/p Re-exploration, washout, transection of colon, Abthera placement - 10/13/2019. s/p re- exploration and colostomy creation on 10/16/2019, intra-operatively was found to have "Small amount of continued leak from the old anastomotic site. Some contamination still present. Bowel was all viable". Back on OR on 10/19/2019, findings "small leak from stump staple line". OR again on 10/22/2019 for: Abdominal washout. Closure of abdominal fascia. Wound vac placement. Findings, "contamination from the sigmoid stump closure site." # COPD, acute respiratory failure: s/p extubation. On high flow O2. # Penicillin allergy - likely not a true allergy, reviewed EMR for previous exposure to PCNs, patient received several days of Zosyn in 2018 without issue. Recs: - given recent prolonged exposure to abx and TPN, at risk of MDR infections, candidemia, continue empiric Meropenem, Vancomycin and Micafungin - f/u blood culture, fungal blood culture. UA unremarkable. Whitfield was removed 10/26/2019. - fluid was drained yesterday and chest tube was placed for pneumonthorax. Bump in WBC may be due to multiple procedures. - continue to closely monitor. Ongoing fevers, or continued worsening of WBC may prompt further scans. [facility] ([facility]) M: [phone] O: [phone] F: [phone] Subjective Date of service: 11/01/19 Principal diagnosis: acute renal failure Interval history: 1x fever overngiht to 101, WBC persistent. Objective - Exam Narrative Exam: Constitutional: awake, alert, no distress Head, Ears, Nose: Normocephalic, atraumatic. External ears, nose normal Eyes: Conjunctivae/corneas clear. No icterus. No ptosis. Neck: supple, no meningeal signs Oral: no thrush Cardiovascular: S1, S2 normal. Respiratory: rhonchi bilaterally GI: Midline abdominal VAC. bowel sounds +, Colostomy + drains + Musculoskeletal: anasarca, pedal edema + but improving Skin: No rash or abscess Hem/Lymphatic: No palpable cervical or supraclavicular nodes. No lymphangitis Psych: no agitation Neurological: awake, alert - Constitutional Vitals: Vital Signs Temp Pulse Resp BP Pulse Ox 99.1 F 96 H 25 H 162/77 96 11/01/19 12:00 11/01/19 11:20 11/01/19 09:00 11/01/19 11:20 11/01/19 11:20 Temperature -Last 24 Hours Temperature 99.1 F Temperature 101.0 F Temperature 99.0 F Temperature 99.6 F Temperature 98.3 F Temperature 98.3 F Temperature 99.1 F - Labs CBC & Chem 7: 11/01/19 05:30 11/01/19 05:30 Labs: Abnormal lab results 10/31/19 10/31/19 10/31/19 Range/Units 12:55 18:10 23:08 WBC (4.5-11.0) K/mm3 RBC (3.65-5.03) M/mm3 Hgb (11.8-15.2) gm/dl Hct (35.5-45.6) % RDW (13.2-15.2) % POC ABG pCO2 57.9 H (35-45) POC ABG pO2 135 H (80-105) Sodium (137-145) mmol/L Chloride (98-107) mmol/L BUN (9-20) mg/dL Creatinine (0.8-1.5) mg/dL Glucose (75-100) mg/dL POC Glucose 109 H (70-105) Vancomycin Trough 41.7 H (5.0-20.0) ug/mL 11/01/19 11/01/19 11/01/19 Range/Units 05:30 05:30 06:09 WBC 14.6 H (4.5-11.0) K/mm3 RBC 3.13 L (3.65-5.03) M/mm3 Hgb 8.9 L (11.8-15.2) gm/dl Hct 27.7 L (35.5-45.6) % RDW 17.0 H (13.2-15.2) % POC ABG pCO2 (35-45) POC ABG pO2 (80-105) Sodium 149 H (137-145) mmol/L Chloride 109.0 H (98-107) mmol/L BUN 26 H (9-20) mg/dL Creatinine 0.7 L (0.8-1.5) mg/dL Glucose 129 H (75-100) mg/dL POC Glucose 113 H (70-105) Vancomycin Trough (5.0-20.0) ug/mL 11/01/19 Range/Units 06:10 WBC (4.5-11.0) K/mm3 RBC (3.65-5.03) M/mm3 Hgb (11.8-15.2) gm/dl Hct (35.5-45.6) % RDW (13.2-15.2) % POC ABG pCO2 51.3 H (35-45) POC ABG pO2 71 L (80-105) Sodium (137-145) mmol/L Chloride (98-107) mmol/L BUN (9-20) mg/dL Creatinine (0.8-1.5) mg/dL Glucose (75-100) mg/dL POC Glucose (70-105) Vancomycin Trough (5.0-20.0) ug/mL
[2019-11-01] MEDS: HALOPERIDOL LACTATE 5 MG/1 ML INJ IV PRN (15:23)
--- NOTE | 2019-11-01 16:08 | Progress Note ---
Assessment and Plan Atrial fibrillation/flutter, spontaneously reverted to sinus rhythm treated with adenosine x1 on 10/15 on amiodarone and metoprolol for suppression Respiratory failure Sepsis Severe abdominal pain s/p exploratory laparotomy, abdominal washout, closure of abdominal fascia with wound vac placement on 10/05 s/p abdominal washout with partial colectomy and left colostomy on 10/16 s/p abdominal washout and closure on 10/22 Recent colon resection for bowel perforation following a colonoscopy Atypical chest pain troponins are normal Hx of [place]/CAD [facility] 12/2017: PCI of the circumflex and second vessel POBA of the distal LAD occlusion. Left ventricle fraction 45-50%. Tobacco abuse COPD Hypertension Hyperlipidemia Continue medical management for atrial fibrillation suppression. Subjective Date of service: 11/01/19 Principal diagnosis: acute renal failure Interval history: Pt is alert, orally intubated on the vent. No reported cardiac events overnight. Remains in a stable sinus rhythm. Objective Vital Signs Temp Pulse Pulse Pulse Resp Resp Resp 11/01/19 15:22 107 H 11/01/19 15:17 107 H 11/01/19 14:00 107 H 25 H 11/01/19 12:00 99.1 F 89 89 24 11/01/19 11:20 96 H 11/01/19 11:01 97 H 20 11/01/19 10:00 95 H 25 H 11/01/19 09:38 96 H 11/01/19 09:00 98 H 25 H 11/01/19 08:00 101.0 F H 96 H 96 H 27 H 11/01/19 07:32 101 H 26 H 11/01/19 07:21 101 H 11/01/19 07:00 97 H 40 H 11/01/19 06:00 105 H 26 H 11/01/19 05:00 107 H 27 H 11/01/19 04:14 109 H 11/01/19 04:01 108 H 24 11/01/19 04:00 99.0 F 109 H 107 H 24 11/01/19 03:01 104 H 26 H 11/01/19 02:01 85 25 H 11/01/19 01:50 84 24 11/01/19 01:00 80 24 11/01/19 00:34 80 11/01/19 00:01 81 24 11/01/19 00:00 80 81 24 10/31/19 23:23 99.6 F 10/31/19 23:01 78 24 10/31/19 22:19 95 H 10/31/19 22:15 97 H 24 10/31/19 22:01 94 H 10/31/19 22:00 93 H 25 H 20 10/31/19 21:01 92 H 27 H 10/31/19 20:00 86 81 25 H 10/31/19 19:48 98.3 F 10/31/19 19:42 98.3 F 10/31/19 19:23 85 25 H 10/31/19 19:00 83 25 H 10/31/19 18:00 86 18 10/31/19 17:00 77 21 BP Pulse Ox 11/01/19 15:22 160/75 93 11/01/19 15:17 160/75 11/01/19 14:00 11/01/19 12:00 124/57 94 11/01/19 11:20 162/77 96 11/01/19 11:01 162/77 98 11/01/19 10:00 158/67 97 11/01/19 09:38 155/72 11/01/19 09:00 162/54 98 11/01/19 08:00 141/61 97 11/01/19 07:32 11/01/19 07:21 148/68 97 11/01/19 07:00 148/68 96 11/01/19 06:00 140/70 94 11/01/19 05:00 140/80 93 11/01/19 04:14 155/83 91 11/01/19 04:01 155/83 89 11/01/19 04:00 95 11/01/19 03:01 159/92 91 11/01/19 02:01 148/71 95 11/01/19 01:50 11/01/19 01:00 126/53 93 11/01/19 00:34 118/53 95 11/01/19 00:01 111/46 94 11/01/19 00:00 99 10/31/19 23:23 10/31/19 23:01 138/54 93 10/31/19 22:19 154/67 10/31/19 22:15 10/31/19 22:01 154/67 93 10/31/19 22:00 154/67 93 10/31/19 21:01 157/53 92 10/31/19 20:00 140/68 98 10/31/19 19:48 10/31/19 19:42 10/31/19 19:23 144/63 98 10/31/19 19:00 144/63 96 10/31/19 18:00 148/76 98 10/31/19 17:00 135/60 100 - Physical Examination General: Other (inutbated on the vent) HEENT: Positive: PERRL Neck: Positive: trachea midline Cardiac: Positive: Reg Rate and Rhythm Neuro: Positive: Weakness Abdomen: Positive: Other (abdominal wound vac is in place) Extremities: Present: +1 Edema. Absent: edema - Labs and Meds CBC 11/01/19 Range/Units 05:30 WBC 14.6 H (4.5-11.0) K/mm3 RBC 3.13 L (3.65-5.03) M/mm3 Hgb 8.9 L (11.8-15.2) gm/dl Hct 27.7 L (35.5-45.6) % Plt Count 355 (140-440) K/mm3 Comprehensive Metabolic Panel 11/01/19 Range/Units 05:30 Sodium 149 H (137-145) mmol/L Potassium 4.1 (3.6-5.0) mmol/L Chloride 109.0 H (98-107) mmol/L Carbon Dioxide 27 (22-30) mmol/L BUN 26 H (9-20) mg/dL Creatinine 0.7 L (0.8-1.5) mg/dL Glucose 129 H (75-100) mg/dL Calcium 8.5 (8.4-10.2) mg/dL
[2019-11-01] MEDS: METOPROLOL TARTRATE 5 MG/5 ML INJ IV PRN (18:00)
[2019-11-01] MEDS: fentaNYL 100 MCG/2 ML INJ IV PRN (18:00)
--- NOTE | 2019-11-01 23:39 | Cat Scan Report ---
CT of the abdomen and pelvis without contrast INDICATION: Postop abdominal abscess COMPARISON: 10/30/2019 FINDINGS: A left chest tube is in place. The left pneumothorax has increased. Small bilateral pleural effusions are seen. There is moderate left lower lobe consolidation. No right-sided pneumothorax wit h minimal right basilar atelectasis. Gastrostomy tube is seen in the stomach with apparent gastrojeju nostomy tube in the descending duodenum. Liver, spleen, pancreas, adrenal glands and kidneys show no significant abnormalities and are unchanged with left renal atrophy again noted without obstruction. No definite gallbladder or biliary tree abnormality. No adenopathy in the upper abdomen. Pigtail drai nage catheter is now seen in the right midabdomen with removal of a small amount of fluid previously seen in this area. There is slight to moderate pneumoperitoneum as well as slight upper abdominal asc ites. CT of the pelvis shows a small amount of free pelvic fluid. Whitfield catheter is seen in the bladder. Pr ostate is not enlarged. Appendix is seen and is normal. No diverticulitis or bowel obstruction. IMPRESSION: Postoperative changes without significant change. No bowel obstruction or abscess identif ied. Left-sided pneumothorax has increased. Automated exposure control was utilized to diminish radiation dose. Signer Name: Miguelito Mo MD Signed: 11/01/2019 11:35 PM Workstation Name: Cody
[2019-11-02] MEDS: fentaNYL 100 MCG/2 ML INJ IV PRN ×2 (00:15→11:55)
[2019-11-02] MEDS: HALOPERIDOL LACTATE 5 MG/1 ML INJ IV PRN ×4 (00:41→22:44)
[2019-11-02] MEDS: INSULIN LISPRO 100 UNIT/ML SUB-Q SCH ×4 (00:42→18:26)
[2019-11-02] MEDS: HYDROmorphone 2 MG/1 ML INJ IV PRN ×5 (00:50→21:43)
[2019-11-02] MEDS: MEROPENEM/NS 1 GRAM/100 ML 1 GRAM/100 ML BAG IV SCH ×3 (02:28→18:32)
[2019-11-02] MEDS ORDERED: SODIUM CHLORIDE 0.9% 1000 ML 1,000 ML IV ONE ×2 (03:01→03:03)
[2019-11-02] MEDS: ACETAMINOPHEN 325 MG/10.15 ML ORAL LIQD UNIT DOSE FEEDTUBE PRN ×2 (03:20→18:27)
[2019-11-02 04:00] LABS: Hematocrit 20.8 % (35.5-45.6); Hemoglobin 7.2 gm/dl (11.8-15.2); Mean Corpuscular HGB Conc 35 % (32-34); Mean Corpuscular Volume 88 fl (84-94); Platelet Count 269 K/mm3 (140-440); Red Blood Count 2.36 M/mm3 (3.65-5.03); Red Cell Distribution Width 16.8 % (13.2-15.2)
[2019-11-02 04:21] LABS: BUN/Creatinine Ratio 38; Blood Urea Nitrogen 23 mg/dL (9-20); Calcium 6.4 mg/dL (8.4-10.2); Hemolysis Index 2
[2019-11-02] MEDS: IPRATROPIUM/ALBUTEROL SULFATE 3 ML AMPUL.NEB IH SCH ×4 (04:26→19:16)
[2019-11-02] MEDS: METOPROLOL TARTRATE 50 MG TAB PO SCH ×3 (07:12→21:37)
[2019-11-02] MEDS: BUDESONIDE 0.5 MG/2 ML NEBU IH SCH ×2 (07:33→19:17)
[2019-11-02] MEDS: ARFORMOTEROL 15 MCG/2 ML NEBU IH SCH ×2 (07:33→19:16)
[2019-11-02] MEDS: DEXTROSE 5% IN WATER 1,000 ML IV SCH ×2 (08:51→21:44)
--- NOTE | 2019-11-02 09:10 | Progress Note ---
Assessment and Plan Assessment and plan: Sepsis, recurrent. Patient with new fevers that have been persistent. ID restarted antibiotics. Etiology likely secondary to fluid collection/abscess in the abdomen and anastomotic leak. Follow-up blood culture, fungal blood culture, UA, urine culture, CXR ordered. Whitfield was removed and urinalysis sent. Given recent prolonged exposure to abx and TPN, at risk of MDR infections, ID started empiric Meropenem and Micafungin Dehiscence of closure of fascia * Went to OR for ex lap with closure of abdominal wall and wound vac placement (10/05) * Continued to decline with possible Air vs fluid, 10/10/19 IR went in and placed two drains, Noted to have possible fecal material * Returned to the OR 10/13/19 due to concern for intra-abdominal infection and was found to have with heavy contamination of abdomen patent had disruption of bowel anastomosis, abdominal washout, abthera placement and colon stapled transection and left bowel enterotomy from anastomosis completely open * Returned to OR on 10/16/19 for abdominal washout, Partial Omentectomy, Partial Colectomy, Colostomy Creation and AbThera Placement * Abdominal washout and closure - 10/22 * cont wound care * * Acute Respiratory failure with hypoxia -Extubated 10/25/19 - Re-intubated 10/30 -Career Development Specialist following Sepsis On Merrem, Mifungin ID Physician following right sump drain fell out Surgeon following Left pneumothorax s/p chest tube placed 10/30 Left lower lobe pneumonia -Continue IV antibiotic -CTA chest showed left lower lobe consolidation with pleural effusion GUILLERMO on CKD -due to ATN due to sepsis -Improving, will monitor -SPEP and UPEP pending -No hydronephrosis on CT -Whitfield in place, monitor I/O's Severe Metabolic acidosis -Improved Acute Toxic Metabolic Encephalopathy/Delirium Tremens -Started on CIWA protocol due to hx of ETOH abuse, 6packs a day -Head CT scan negative for acute findings Acute blood loss anemia -H/H stable -Continue to monitor H&H and transfuse for hb<7 SVT, Atrial fib/flutter with RVR -treated with adenosine x1 -off amiodarone and cardizem drip. On oral amiodarone and IV Lopressor. -HR currently controlled -Cardiology following Hypotension -Off esmolol drip -s/p IV fluid boluses, BP stable Hypophosphatemia -will monitor level Hypernatremia start D5W Hypokalemia Replace iv Hx of Hypertension -Stable Hyperlipidemia -stable Atypical chest pain -probably secondary to pneumonitis -troponin levels neg Hx of [place]/CAD -s/p PCI of the circumflex and second vessel POBA of the distal LAD occlusion. Left ventricle fraction of 45-50%. Morbid obesity with BMI of 43.4 -Lifestyle modification recommended COPD -Stable -cont neb tx Moderate Protein calorie malnutrition secondary to surgery -On TPN -Nutrition following Tobacco abuse -Cessation recommended Morbid obesity with BMI of 45.4 -Lifestyle modification recommended DVT and GI ppx: Lovenox/PPI Disp: Prognosis guarded The high probability of a clinically significant, sudden or life threatening deterioration of the [respiratory] system(s) required my full and direct attention, intervention and personal management. The aggregate critical care time was [31] minutes. This time is in addition to time spent performing reported procedures but includes the following: [x] Data Review and interpretation [x] Patient assessment and monitoring of vital signs [x] Documentation [x] Medication orders and management History Interval history: Re-intubated 10/30 Still having fevers Hospitalist Physical - Physical exam Narrative exam: Gen: Not in acute distress, Intubated, sedated HEENT: Normocephalic, atraumatic Neck: supple, no JVD Heart: S1 and S2 reg, no murmurs, rubs or gallop Lungs: Chest tube on left, Abd: soft, NT, ostomy, wound vac, left drain Ext: No edema, no clubbing no cyanosis Neuro: Intubated, sedated - Constitutional Vitals: Temp Pulse Resp BP Pulse Ox 98.8 F 87 25 H 175/104 97 11/02/19 08:10 11/02/19 07:48 11/02/19 07:48 11/02/19 07:27 11/02/19 07:27 General appearance: Present: no acute distress, obese Results - Labs CBC & Chem 7: 11/02/19 03:40 11/02/19 03:40 Labs: Laboratory Last Values WBC 10.0 K/mm3 (4.5-11.0) 11/02/19 03:40 RBC 2.36 M/mm3 (3.65-5.03) L 11/02/19 03:40 Hgb 7.2 gm/dl (11.8-15.2) L 11/02/19 03:40 Hct 20.8 % (35.5-45.6) L D 11/02/19 03:40 MCV 88 fl (84-94) 11/02/19 03:40 MCH 30 pg (28-32) 11/02/19 03:40 MCHC 35 % (32-34) H 11/02/19 03:40 RDW 16.8 % (13.2-15.2) H 11/02/19 03:40 Plt Count 269 K/mm3 (140-440) 11/02/19 03:40 Lymph % (Auto) 11.2 % (13.4-35.0) L 10/30/19 05:15 [place] % (Auto) 13.6 % (0.0-7.3) H 10/30/19 05:15 Eos % (Auto) 0.0 % (0.0-4.3) 10/30/19 05:15 Baso % (Auto) 0.1 % (0.0-1.8) 10/30/19 05:15 Lymph # 1.5 K/mm3 (1.2-5.4) 10/30/19 05:15 [place] # 1.9 K/mm3 (0.0-0.8) H 10/30/19 05:15 Eos # 0.0 K/mm3 (0.0-0.4) 10/30/19 05:15 Baso # 0.0 K/mm3 (0.0-0.1) 10/30/19 05:15 Add Manual Diff Complete 10/16/19 09:20 Total Counted 100 10/16/19 09:20 Seg Neutrophils % 75.1 % (40.0-70.0) H 10/30/19 05:15 Seg Neuts % (Manual) 79.0 % (40.0-70.0) H 10/16/19 09:20 Band Neutrophils % 12.0 % 10/16/19 09:20 Lymphocytes % (Manual) 4.0 % (13.4-35.0) L 10/16/19 09:20 Reactive Lymphs % (Man) 0 % 10/16/19 09:20 Monocytes % (Manual) 2.0 % (0.0-7.3) 10/16/19 09:20 Eosinophils % (Manual) 0 % (0.0-4.3) 10/16/19 09:20 Basophils % (Manual) 0 % (0.0-1.8) 10/16/19 09:20 Metamyelocytes % 2.0 % 10/16/19 09:20 Myelocytes % 1.0 % 10/16/19 09:20 Promyelocytes % 0 % 10/16/19 09:20 Blast Cells % 0 % 10/16/19 09:20 Nucleated RBC % Not Reportable 10/16/19 09:20 Seg Neutrophils # 10.4 K/mm3 (1.8-7.7) H 10/30/19 05:15 Seg Neutrophils # Man 11.5 K/mm3 (1.8-7.7) H 10/16/19 09:20 Band Neutrophils # 1.8 K/mm3 10/16/19 09:20 Lymphocytes # (Manual) 0.6 K/mm3 (1.2-5.4) L 10/16/19 09:20 Abs React Lymphs (Man) 0.0 K/mm3 10/16/19 09:20 Monocytes # (Manual) 0.3 K/mm3 (0.0-0.8) 10/16/19 09:20 Eosinophils # (Manual) 0.0 K/mm3 (0.0-0.4) 10/16/19 09:20 Basophils # (Manual) 0.0 K/mm3 (0.0-0.1) 10/16/19 09:20 Metamyelocytes # 0.3 K/mm3 10/16/19 09:20 Myelocytes # 0.1 K/mm3 10/16/19 09:20 Promyelocytes # 0.0 K/mm3 10/16/19 09:20 Blast Cells # 0.0 K/mm3 10/16/19 09:20 WBC Morphology Not Reportable 10/16/19 09:20 Hypersegmented Neuts Not Reportable 10/16/19 09:20 Hyposegmented Neuts Not Reportable 10/16/19 09:20 Hypogranular Neuts Not Reportable 10/16/19 09:20 Smudge Cells Not Reportable 10/16/19 09:20 Toxic Granulation Not Reportable 10/16/19 09:20 Toxic Vacuolation Not Reportable 10/16/19 09:20 Dohle Bodies Not Reportable 10/16/19 09:20 Pelger-Huet Anomaly Not Reportable 10/16/19 09:20 Andres Rods Not Reportable 10/16/19 09:20 Platelet Estimate Consistent w auto 10/16/19 09:20 Clumped Platelets Not Reportable 10/16/19 09:20 Plt Clumps, EDTA Not Reportable 10/16/19 09:20 Large Platelets Not Reportable 10/16/19 09:20 Giant Platelets Not Reportable 10/16/19 09:20 Platelet Satelliting Not Reportable 10/16/19 09:20 Plt Morphology Comment Not Reportable 10/16/19 09:20 RBC Morphology Not Reportable 10/16/19 09:20 Dimorphic RBCs Not Reportable 10/16/19 09:20 Polychromasia Few 10/16/19 09:20 Hypochromasia Few 10/16/19 09:20 Poikilocytosis Not Reportable 10/16/19 09:20 Anisocytosis Not Reportable 10/16/19 09:20 Microcytosis Not Reportable 10/16/19 09:20 Macrocytosis Not Reportable 10/16/19 09:20 Spherocytes Not Reportable 10/16/19 09:20 Pappenheimer Bodies Not Reportable 10/16/19 09:20 Sickle Cells Not Reportable 10/16/19 09:20 Target Cells Few 10/16/19 09:20 Tear Drop Cells Not Reportable 10/16/19 09:20 Ovalocytes Not Reportable 10/16/19 09:20 Helmet Cells Not Reportable 10/16/19 09:20 Varghese-Amanda Bodies Not Reportable 10/16/19 09:20 [place] Rings Not Reportable 10/16/19 09:20 Bishnu Cells Not Reportable 10/16/19 09:20 Bite Cells Not Reportable 10/16/19 09:20 Crenated Cell Not Reportable 10/16/19 09:20 Elliptocytes Not Reportable 10/16/19 09:20 Acanthocytes (Spur) Not Reportable 10/16/19 09:20 Rouleaux Not Reportable 10/16/19 09:20 Hemoglobin C Crystals Not Reportable 10/16/19 09:20 Schistocytes Not Reportable 10/16/19 09:20 Malaria parasites Not Reportable 10/16/19 09:20 Toni Bodies Not Reportable 10/16/19 09:20 Hem Pathologist Commnt No 10/16/19 09:20 POC ABG pH 7.387 (7.35-7.45) 11/02/19 04:48 ABG pH 7.390 pH Units (7.350-7.450) 10/23/19 04:47 POC ABG pCO2 50.1 (35-45) H 11/02/19 04:48 ABG pCO2 48.4 mm Hg 10/23/19 04:47 POC ABG pO2 74 (80-105) L 11/02/19 04:48 ABG pO2 68.9 mm Hg (80.0-90.0) L 10/23/19 04:47 POC ABG HCO3 30.1 (22-26 mml/L) 11/02/19 04:48 ABG HCO3 28.7 mmol/L (20.0-26.0) H 10/23/19 04:47 POC ABG Total CO2 32 (23-27mmol/L) 11/02/19 04:48 POC ABG O2 Sat 94 11/02/19 04:48 ABG O2 Saturation 96.6 % (95.0-99.0) 10/23/19 04:47 ABG O2 Content 8.8 (0.0-44) 10/23/19 04:47 POC ABG Base Excess 5 ((-2) - (+3)mmol/L) 11/02/19 04:48 ABG Base Excess 3.4 mmol/L (-2.0-3.0) H 10/23/19 04:47 ABG Hemoglobin 6.6 gm/dl (14.0-18.0) L 10/23/19 04:47 ABG Carboxyhemoglobin 2.1 % (0.0-5.0) 10/23/19 04:47 ABG Methemoglobin 0.5 % (0.0-1.5) 10/23/19 04:47 Oxyhemoglobin 94.1 % (95.0-99.0) L 10/23/19 04:47 FiO2 40 % 11/02/19 04:48 Sodium 157 mmol/L (137-145) H D 11/02/19 03:40 Potassium 3.0 mmol/L (3.6-5.0) L D 11/02/19 03:40 Chloride 117.2 mmol/L (98-107) H 11/02/19 03:40 Carbon Dioxide 27 mmol/L (22-30) 11/02/19 03:40 Anion Gap 16 mmol/L 11/02/19 03:40 BUN 23 mg/dL (9-20) H 11/02/19 03:40 Creatinine 0.6 mg/dL (0.8-1.5) L 11/02/19 03:40 Estimated GFR > 60 ml/min 11/02/19 03:40 BUN/Creatinine Ratio 38 % 11/02/19 03:40 Glucose 101 mg/dL (75-100) H 11/02/19 03:40 POC Glucose 109 (70-105) H 11/02/19 05:30 Hemoglobin A1c 5.7 % (4-6) 10/06/19 05:36 Lactic Acid 1.10 mmol/L (0.7-2.0) 10/13/19 04:20 Calcium 6.4 mg/dL (8.4-10.2) L D 11/02/19 03:40 Ionized Calcium 5.2 mg/dL (4.8-5.6) 10/18/19 07:41 Phosphorus 4.30 mg/dL (2.5-4.5) D 10/30/19 05:15 Magnesium 2.40 mg/dL (1.7-2.3) H 10/30/19 05:15 Total Bilirubin 1.10 mg/dL (0.1-1.2) 10/26/19 06:15 Direct Bilirubin 0.7 mg/dL (0-0.2) H 10/23/19 10:44 Indirect Bilirubin 0.1 mg/dL 10/23/19 10:44 AST 23 units/L (5-40) 10/26/19 06:15 ALT 13 units/L (7-56) 10/26/19 06:15 Alkaline Phosphatase 148 units/L (35-129) H 10/26/19 06:15 Ammonia 49.0 umol/L (25-60) 10/13/19 04:20 Troponin T < 0.010 ng/mL (0.00-0.029) 10/09/19 17:23 C-Reactive Protein 30.60 mg/dL (0.00-1.30) H 10/15/19 04:32 Serum Total Protein 5.2 g/dL (6.1-8.1) L 10/11/19 09:00 Total Protein 5.9 g/dL (6.3-8.2) L 10/26/19 06:15 Albumin 2.4 g/dL (3.9-5) L 10/26/19 06:15 Albumin/Globulin Ratio 0.7 % 10/26/19 06:15 Prealbumin 0.030 g/L (0.200-0.400) L 10/15/19 04:32 Aqqrt-0-Awrqtphcl See scanned result 10/11/19 Unknown Mayoz-1-Lhrzqokdz See scanned result 10/11/19 Unknown Beta Globulins See scanned result 10/11/19 Unknown Gamma Globulins See scanned result 10/11/19 Unknown Abnorm Protein Band 1 see below 10/11/19 09:00 PEP Interpretation See scanned result 10/11/19 Unknown Triglycerides 185 mg/dL (2-149) H 10/26/19 06:15 Urine Color Yellow (Yellow) 10/26/19 Unknown Urine Turbidity Clear (Clear) 10/26/19 Unknown Urine pH 9.0 (5.0-7.0) H 10/26/19 Unknown Ur Specific Morning Sun 1.011 (1.003-1.030) 10/26/19 Unknown Urine Protein 30 mg/dl mg/dL (Negative) 10/26/19 Unknown Urine Glucose (UA) Neg mg/dL (Negative) 10/26/19 Unknown Urine Ketones Neg mg/dL (Negative) 10/26/19 Unknown Urine Blood Neg (Negative) 10/26/19 Unknown Urine Nitrite Neg (Negative) 10/26/19 Unknown Urine Bilirubin Neg (Negative) 10/26/19 Unknown Urine Urobilinogen < 2.0 mg/dL (<2.0) 10/26/19 Unknown Ur Leukocyte Esterase Neg (Negative) 10/26/19 Unknown Urine WBC (Auto) 1.0 /HPF (0.0-6.0) 10/26/19 Unknown Urine RBC (Auto) 1.0 /HPF (0.0-6.0) 10/26/19 Unknown Urine Bacteria (Auto) 1+ /HPF (Negative) 10/11/19 06:23 Urine Mucus Few /HPF 10/26/19 Unknown Urine Eosinophils None seen (None Seen) 10/11/19 06:23 Ur Random Creatinine See scanned result 10/11/19 Unknown U Random Total Protein See scanned result 10/11/19 Unknown Urine Creatinine 116.8 mg/dL (0.1-20.0) H 10/11/19 06:23 Urine Creatinine 118.2 mg/dL (0.1-20.0) H 10/11/19 06:23 Protein/Creatinin Ratio See scanned result 10/11/19 Unknown Urine Sodium 14 mmol/L 10/11/19 06:23 Urine Total Protein 104 mg/dL (5-11.8) H 10/11/19 06:23 Urine Total Protein 105 mg/dL (5-11.8) H 10/11/19 06:23 U Abnormal Prot Band 1 See scanned result 10/11/19 Unknown U Abnormal Prot Band 2 See scanned result 10/11/19 Unknown U Abnormal Prot Band 3 See scanned result 10/11/19 Unknown Vancomycin Trough 41.7 ug/mL (5.0-20.0) H 10/31/19 12:55 Random Vancomycin 10.2 ug/mL (0-40.0) 11/02/19 03:40 Digoxin 0.7 ng/mL (0.9-2.0) L 10/19/19 04:21 Blood Type A POSITIVE 10/23/19 11:50 Antibody Screen Negative 10/23/19 11:50 Crossmatch See Detail 10/23/19 11:50 Active Medications - Current Medications Current Medications: Generic Name Dose Route Start Last Admin Trade Name Freq PRN Reason Stop Dose Admin Acetaminophen 650 mg 10/25/19 13:00 11/02/19 03:20 Tylenol FEEDTUBE 650 mg Q4H PRN Administration Fever >100.5 Albuterol 2.5 mg 10/05/19 21:36 Proventil IH Q4HRT PRN Shortness Of Breath Albuterol/Ipratropium 1 ampul 10/06/19 02:00 11/02/19 07:33 Duoneb *Not For Prn Use* IH 1 ampul Q6HRT VERÓNICA Administration Amiodarone HCl 200 mg 10/23/19 13:00 11/01/19 09:38 Cordarone PO 200 mg QDAY VERÓNICA Administration Lipase/Protease/Amylase 1 each 10/20/19 10:37 Shaggy Moreno 10,500 Unit FEEDTUBE PRN PRN For Clogged Feeding Tube Arformoterol Tartrate 15 mcg 10/06/19 08:30 11/02/19 07:33 Brovana Nebu IH 15 mcg Q12HRT VERÓNICA Administration Budesonide 0.5 mg 10/07/19 12:20 11/02/19 07:33 Pulmicort IH 0.5 mg Q12HRT VERÓNICA Administration Citalopram Hydrobromide 20 mg 10/27/19 12:00 11/01/19 09:38 Celexa PO 20 mg DAILY VERÓNICA Administration Fentanyl 50 mcg 10/25/19 12:35 11/02/19 00:15 Sublimaze IV 50 mcg Q2H PRN Administration PAIN SCORE </=5 Haloperidol Lactate 5 mg 10/25/19 18:22 11/02/19 08:26 Haldol IV 5 mg Q6H PRN Administration Agitation Hydralazine HCl 10 mg 10/28/19 14:09 10/30/19 03:06 Apresoline IV 10 mg Q4HR PRN Administration Hypertension Hydromorphone HCl 2 mg 10/25/19 12:35 11/02/19 08:42 Dilaudid IV 2 mg Q4H PRN Administration PAIN SCORE >/=6 MEROPENEM/NS 1 GRAM/100 ML 1 gram in 100 mls @ 100 mls/hr 10/26/19 18:30 11/02/19 02:28 Merrem/Ns 1 Gram/100 Ml IV 100 mls/hr Q8H VERÓNICA Administration Protocol Micafungin Sodium 100 mg/ 100 mls @ 100 mls/hr 10/26/19 18:30 11/01/19 09:39 Sodium Chloride IV 100 mls/hr QDAY VERÓNICA Administration Protocol Dextrose 1,000 mls @ 75 mls/hr 11/02/19 09:00 11/02/19 08:51 D5w IV 75 mls/hr DIRECT VERÓNICA Administration Vancomycin HCl 2,000 mg/ 540 mls @ 250 mls/hr 11/02/19 10:00 Sodium Chloride IV Q24HR VERÓNICA Insulin Human Lispro 0 unit 10/14/19 12:00 11/02/19 07:12 Humalog SUB-Q Not Given Q6HR [facility] Protocol Lisinopril 20 mg 10/30/19 10:00 11/01/19 09:38 Zestril PO 20 mg QDAY [facility] Administration Metoprolol Tartrate 2.5 mg 10/15/19 15:34 11/01/19 18:00 Metoprolol IV 2.5 mg Q4HR PRN Administration HR >130 Metoprolol Tartrate 50 mg 10/25/19 14:00 11/02/19 07:12 Metoprolol PO Not Given Q8HR [facility] Multi-Ingred Cream/Lotion/Oil/Oint 1 applic 10/14/19 02:19 Artificial Tears Ophth Oint OU Q4HR PRN Dry Eye(s) Ondansetron HCl 4 mg 10/05/19 21:22 10/11/19 18:20 Zofran IV 4 mg Q3H PRN Administration Nausea And Vomiting Pantoprazole Sodium 40 mg 10/15/19 10:00 11/01/19 09:38 Protonix IV 40 mg QDAY [facility] Administration Simple Syrup 15 ml 10/20/19 10:37 Simple Syrup FEEDTUBE PRN PRN Hypoglycemia Simple Syrup 30 ml 10/20/19 10:37 Simple Syrup FEEDTUBE PRN PRN Hypoglycemia Sodium Bicarbonate 325 mg 10/20/19 10:37 Sodium Bicarbonate FEEDTUBE PRN PRN For Clogged Feeding Tube Sodium Chloride 10 ml 10/05/19 21:22 10/19/19 09:29 Sodium Chloride Flush Syringe 10 Ml IV 10 ml PRN PRN Administration LINE FLUSH Nutrition/Malnutrition Assess - Dietary Evaluation Nutrition/Malnutrition Findings: Nutrition Notes Start: 10/08/19 11:36 Freq: Status: Active Protocol: Document 10/31/19 11:07 DW (Rec: 10/31/19 11:18 DW [id number]) Co-Sign 10/31/19 11:07 LP Nutrition Notes Initial or Follow up Reassessment Current Diagnosis Acute Kidney Injury,COPD, Hypertension Other Pertinent Diagnosis intra-abdominal infection, disruption of bowel anastomosis, LE edema Current Diet Vital 1.2 at 70 ml/hr Labs/Tests Na 148 BUN 37 Cr 0.7 Pertinent Medications Reviewed Height 6 ft Weight 145 kg [place] Body Weight (kg) 80.90 BMI 43.3 Subjective/Other Information FU TF tolerance Upon arrival noticed Vital 1.2 running at 60 ml/hr Percent of energy/protein needs met: 85%/53% Burn Absent Trauma Absent GI Symptoms None Current % PO Negligible Minimum of two criteria No Fluid Accumulation Mild (non-severe) #2 Nutrition Diagnosis Inadequate oral intake Diagnosis Progress(for reassessment Continues documentation) #1 Nutrition Diagnosis Increased nutrient needs ( specify in comment below) Diagnosis Progress(for reassessment Continues documentation) Is patient on ventilator? Yes Is Patient Ambulatory and/or Out of Bed No REE-([place] Jeor-confined to bed) 2785.236 Kcal/Kg value to use for calculation 14 Approximate Energy Requirements Using 2030 kcal/Kg Calculation Used for Recommendations Kcal/kg Additional Notes Protein: 202g (up to 2.5 g/kg IBW 80.9 kg) Pay attention to renal issues Fluid: 1 ml/kcal or per MD Nutrition Intervention Change Diet Order: Continue TF Nutrition Support: Vital AF at 70ml/hr Flush 125 ml q2hr for hypernatremia Once resolved flush 100ml q4hr Kcal 2,016 Protein (gm) 126 Fluid (mL) 1,362 Goal #1 Meet energy and protein needs as best as possible via TF Goal #2 TF tolerance Anticipated Discharge Needs: unable to determine at this time Follow-Up By: 11/02/19 Additional Comments FU TF tolerance and Na labs
--- NOTE | 2019-11-02 09:27 | Progress Note ---
Assessment and Plan Atrial fibrillation/flutter, spontaneously reverted to sinus rhythm treated with adenosine x1 on 10/15 on amiodarone and metoprolol for suppression Respiratory failure Sepsis Left pneumothorax s/p chest tube Severe abdominal pain s/p exploratory laparotomy, abdominal washout, closure of abdominal fascia with wound vac placement on 10/05 s/p abdominal washout with partial colectomy and left colostomy on 10/16 s/p abdominal washout and closure on 10/22 Recent colon resection for bowel perforation following a colonoscopy Hx of MA/CAD [facility] 12/2017: PCI of the circumflex and second vessel POBA of the distal LAD occlusion. Left ventricle fraction 45-50%. Tobacco abuse COPD Hypertension Hyperlipidemia Continue medical management for atrial fibrillation suppression. Subjective Date of service: 11/02/19 Principal diagnosis: acute renal failure Interval history: No reported cardiac events overnight. Remains in a stable sinus rhythm. Objective Vital Signs Temp Pulse Pulse Pulse Resp Resp BP 11/02/19 08:10 98.8 F 11/02/19 07:48 87 25 H 11/02/19 07:27 95 H 175/104 11/02/19 06:01 100 H 28 H 150/65 11/02/19 05:01 111 H 27 H 87/63 11/02/19 04:30 150 H 87/63 11/02/19 04:01 142 H 26 H 123/66 11/02/19 04:00 99 H 104 H 26 H 11/02/19 03:01 150 H 24 103/64 11/02/19 03:00 101.3 F H 11/02/19 02:00 148 H 22 91/55 11/02/19 01:00 100 H 25 H 96/50 11/02/19 00:01 99 H 22 113/78 11/02/19 00:00 99 H 104 H 28 H 11/01/19 23:32 106 H 144/69 11/01/19 23:13 105 H 30 H 126/65 11/01/19 22:31 97.6 F 11/01/19 22:01 96 H 25 H 122/65 11/01/19 21:01 116 H 24 111/67 11/01/19 20:35 86 104/37 11/01/19 20:02 106 H 25 H 67/44 11/01/19 20:01 119 H 24 67/44 11/01/19 20:00 106 H 113 H 24 11/01/19 19:55 101.8 F H 11/01/19 19:33 107 H 24 11/01/19 19:28 105 H 87/40 11/01/19 19:01 122 H 24 158/68 11/01/19 18:01 124 H 28 H 72/53 11/01/19 18:00 144 H 151/87 11/01/19 17:01 100 H 23 72/53 11/01/19 16:01 82 24 105/51 11/01/19 16:00 101.6 F H 80 82 24 11/01/19 15:22 107 H 160/75 11/01/19 15:17 107 H 160/75 11/01/19 15:00 106 H 25 H 174/72 11/01/19 14:01 96 H 26 H 166/85 11/01/19 14:00 107 H 25 H 11/01/19 13:00 89 24 144/63 11/01/19 12:00 99.1 F 90 89 24 124/57 11/01/19 11:20 96 H 162/77 11/01/19 11:01 97 H 20 162/77 11/01/19 10:00 95 H 25 H 158/67 11/01/19 09:38 96 H 155/72 Pulse Ox 11/02/19 08:10 11/02/19 07:48 11/02/19 07:27 97 11/02/19 06:01 97 11/02/19 05:01 97 11/02/19 04:30 97 11/02/19 04:01 97 11/02/19 04:00 97 11/02/19 03:01 97 11/02/19 03:00 11/02/19 02:00 94 11/02/19 01:00 91 11/02/19 00:01 91 11/02/19 00:00 94 11/01/19 23:32 95 11/01/19 23:13 11/01/19 22:31 11/01/19 22:01 94 11/01/19 21:01 99 11/01/19 20:35 11/01/19 20:02 94 11/01/19 20:01 93 11/01/19 20:00 94 11/01/19 19:55 11/01/19 19:33 11/01/19 19:28 93 11/01/19 19:01 93 11/01/19 18:01 96 11/01/19 18:00 11/01/19 17:01 98 11/01/19 16:01 94 11/01/19 16:00 94 11/01/19 15:22 93 11/01/19 15:17 11/01/19 15:00 95 11/01/19 14:01 97 11/01/19 14:00 11/01/19 13:00 97 11/01/19 12:00 94 11/01/19 11:20 96 11/01/19 11:01 98 11/01/19 10:00 97 11/01/19 09:38 - Physical Examination General: Other (inutbated on the vent) HEENT: Positive: PERRL Cardiac: Positive: Reg Rate and Rhythm Neuro: Positive: Weakness Abdomen: Positive: Other (abdominal wound vac is in place) Extremities: Present: +1 Edema. Absent: edema - Labs and Meds CBC 11/02/19 Range/Units 03:40 WBC 10.0 (4.5-11.0) K/mm3 RBC 2.36 L (3.65-5.03) M/mm3 Hgb 7.2 L (11.8-15.2) gm/dl Hct 20.8 L D (35.5-45.6) % Plt Count 269 (140-440) K/mm3 Comprehensive Metabolic Panel 11/02/19 Range/Units 03:40 Sodium 157 H D (137-145) mmol/L Potassium 3.0 L D (3.6-5.0) mmol/L Chloride 117.2 H (98-107) mmol/L Carbon Dioxide 27 (22-30) mmol/L BUN 23 H (9-20) mg/dL Creatinine 0.6 L (0.8-1.5) mg/dL Glucose 101 H (75-100) mg/dL Calcium 6.4 L D (8.4-10.2) mg/dL
[2019-11-02] MEDS: PANTOPRAZOLE 40 MG INJ IV SCH (09:51)
[2019-11-02] MEDS: LISINOPRIL 20 MG TAB PO SCH (09:51)
[2019-11-02] MEDS: POTASSIUM CHLORIDE 10 MEQ 10 MEQ/100 ML BAG IV SCH ×2 (09:52→14:00)
[2019-11-02] MEDS: CITALOPRAM 20 MG TAB PO SCH (09:52)
[2019-11-02] MEDS: AMIODARONE 200 MG TAB PO SCH (09:52)
--- NOTE | 2019-11-02 10:02 | Progress Note ---
Assessment and Plan 54 y/o male with anastomic leak 11/02: Repeat labs this am. Hard time believing that 2 liters of normal saline made his sodium increase that much. Also, once i discuss with surgery, may consider giving more blood. Will also hold tube feeds briefly as well. In case any procedures. Lovenox held last night. Continue vent support 11/01: Spoke with Dr. Krause this am and understand his concerns. Have started the transfer process. Most ICU's throughout the city are on diversion or full. [facility] has received his Facesheet and we are awaiting to hear back from them. CXR is clear. Minimal vent settings. Will continue supportive care for now. Follow up any new ID recs given increasing white and fever. 10/31: Will check CXR tomorrow. Continue chest tube to suction. Will likely stay in until extubated. Continue drains. Explained to staff to be extremely careful with these drains so that they do not come out. 10/30: Acute on chronic respiratory failure requiring reintubation. Appreciate Anesthesia assistance as he was a difficult intubation when we had to change his tube out about 1 week ago. Will continue on 100% until after Scans and then start to wean back down. CXR yesterday looked like pulmonary edema but improved today with positive pressure. Continue supportive care and await results of scans. 10/29: Discussed today on rounds. Patient had some issues over the weekend with the ICE chips and liquids. Will obtain speech consult/eval prior to restarting clears today. Spoke with nutrition and they will adjust tube feeds with new goal. Once at goal will start to taper off TPN. ordered Incentive madhu to bedside. Will also restart home dose of elaine today. pain control and drainage monitoring. Will continue ICU care. 10/26: Patient stable overall. Not ready for floor. Would be ok with step down if beds are needed. If spikes temp again will order blood cultures x2, urine culture, UA and repeat CXR. Gave an additional 40 of lasix this am. Will give more potassium replacement. Continue trickle feeds for now. Will continue PO meds and restart home dose of citalopram. Wean FiO2 and flow for sats >88%. Mildly hypertensive but this was secondary to agitation. Normalizing now. 10/25: Will extubate today. Will use HFNC if distress or hypoxemia is noted. Not a good candidate for bipap given his recent abdominal issues. Spoke with who is now at bedside and surgery. Will continue to attempt to achieve net negative state daily. Hold on further albumin administration. Hypernatremia is iatrogenic from lasix administration Worse case scenario, will re-intubate with anesthesia. 10/24: Responding well to lasix and protein therapy. Will give 2 more doses of lasix today. Consider one for tonight as well. Last albumin today at 1800. CXR is stable, still with layering bilateral pleural effusions. Will reassess again tomorrow. Reviewed all other [facility] consultant notes. Spoke with sisters at bedside, updated and spoke with surgery. 10/23: Long discussion with surgery and via phone. Anasarca is likely from decreased oncotic pressure and immobility of several days now that abdomen is finally closed. Now fluid is essentially leaking into the interstitium now that the abdomen is shut and there is increased intra-abdominal pressure. Total Protein is 4.5 and albumin is 1.2. This is to be expected given current illness. Will attempt to increase oncotic pressure with 2 units of PRBC's and albumin infusions for the next 24 hours starting at midnight tonight. Will give lasix inbetween transfusions and then again tonight. CXR is consistent with pulmonary edema volume overload. Will continue vent for now and after significant volume removal then will attempt extubation. Discussed with and she understands. Will continue to monitor. Agree with trickle feeds and cards has switched amio over to PO to be given through the G-tube. If tolerates, hopeful to be rid of TPN soon as this is necessary but excessive volume as well. 10/22: Added diprovan as more sedation was needed. Hopefully once closed and no leaks, patient can be extubated. Cards very concerned about length of time for IV amio. Will discuss with surgery the time frame that gut can be used. 10/21: Will hold on weaning until abdomen is closed, especially knowing mental status is good. Will focus on pain control. Replace electrolytes. Appreciate Surgery recs and detail. Follow up any new recs from cards. Or tomorrow for closure CCT 31 minutes. Subjective Date of service: 11/02/19 Principal diagnosis: acute renal failure Interval history: Had some hypotension. last night. Responded to fluid boluses. Remains easily awakened by verbal stimuli. Febrile as well. CT of ABD/PEL done. Objective Vital Signs - 12hr 11/01/19 11/01/19 11/01/19 22:31 23:13 23:32 Temperature 97.6 F Pulse Rate 105 H 106 H Pulse Rate [ Anterior Bilateral Throughout] Pulse Rate [ From Monitor] Respiratory 30 H Rate Respiratory Rate [Anterior Bilateral Throughout] Blood Pressure 126/65 144/69 O2 Sat by Pulse 95 Oximetry 11/02/19 11/02/19 11/02/19 00:00 00:01 01:00 Temperature Pulse Rate 99 H 99 H 100 H Pulse Rate [ Anterior Bilateral Throughout] Pulse Rate [ 104 H From Monitor] Respiratory 28 H 22 25 H Rate Respiratory Rate [Anterior Bilateral Throughout] Blood Pressure 113/78 96/50 O2 Sat by Pulse 94 91 91 Oximetry 11/02/19 11/02/19 11/02/19 02:00 03:00 03:01 Temperature 101.3 F H Pulse Rate 148 H 150 H Pulse Rate [ Anterior Bilateral Throughout] Pulse Rate [ From Monitor] Respiratory 22 24 Rate Respiratory Rate [Anterior Bilateral Throughout] Blood Pressure 91/55 103/64 O2 Sat by Pulse 94 97 Oximetry 11/02/19 11/02/19 11/02/19 04:00 04:01 04:30 Temperature Pulse Rate 99 H 142 H 150 H Pulse Rate [ Anterior Bilateral Throughout] Pulse Rate [ 104 H From Monitor] Respiratory 26 H 26 H Rate Respiratory Rate [Anterior Bilateral Throughout] Blood Pressure 123/66 87/63 O2 Sat by Pulse 97 97 97 Oximetry 11/02/19 11/02/19 11/02/19 05:01 06:01 07:01 Temperature Pulse Rate 111 H 100 H 96 H Pulse Rate [ Anterior Bilateral Throughout] Pulse Rate [ From Monitor] Respiratory 27 H 28 H 28 H Rate Respiratory Rate [Anterior Bilateral Throughout] Blood Pressure 87/63 150/65 120/77 O2 Sat by Pulse 97 97 97 Oximetry 11/02/19 11/02/19 11/02/19 07:27 07:48 08:00 Temperature Pulse Rate 95 H 93 H Pulse Rate [ 87 Anterior Bilateral Throughout] Pulse Rate [ 93 H From Monitor] Respiratory 28 H Rate Respiratory 25 H Rate [Anterior Bilateral Throughout] Blood Pressure 175/104 117/90 O2 Sat by Pulse 97 99 Oximetry 11/02/19 11/02/19 11/02/19 08:10 09:00 09:51 Temperature 98.8 F Pulse Rate 92 H 89 Pulse Rate [ Anterior Bilateral Throughout] Pulse Rate [ From Monitor] Respiratory 26 H Rate Respiratory Rate [Anterior Bilateral Throughout] Blood Pressure 152/68 135/63 O2 Sat by Pulse 96 Oximetry Constitutional: alert, other (critically ill on HFNC) Eyes: non-icteric ENT: oropharynx moist Neck: supple Effort: mildly labored Ascultation: Bilateral: diminished breath sounds (bases) Cardiovascular: regular rate and rhythm (no mrg) Gastrointestinal: tender, other (obese, distended) Integumentary: normal Extremities: no cyanosis, pink and warm, edema (1+ bilateral LE edema) Neurologic: normal mental status, non-focal exam, pupils equal and round Psychiatric: mood appropriate, affect normal CBC and BMP: 11/02/19 03:40 11/02/19 03:40 ABG, PT/INR, D-dimer: ABG POC ABG pH 7.387 (7.35-7.45) 11/02/19 04:48 ABG pH 7.390 pH Units (7.350-7.450) 10/23/19 04:47 POC ABG pCO2 50.1 (35-45) H 11/02/19 04:48 ABG pCO2 48.4 mm Hg 10/23/19 04:47 POC ABG pO2 74 (80-105) L 11/02/19 04:48 ABG pO2 68.9 mm Hg (80.0-90.0) L 10/23/19 04:47 POC ABG HCO3 30.1 (22-26 mml/L) 11/02/19 04:48 POC ABG Total CO2 32 (23-27mmol/L) 11/02/19 04:48 POC ABG O2 Sat 94 11/02/19 04:48 ABG O2 Saturation 96.6 % (95.0-99.0) 10/23/19 04:47 Abnormal lab findings: Abnormal Labs 10/06/19 10/06/19 10/07/19 05:36 05:36 05:54 WBC 21.8 H 21.5 H RBC 3.55 L Hgb 10.9 L Hct 32.7 L MCHC RDW Plt Count Lymph % (Auto) [place] % (Auto) Lymph # [place] # Seg Neutrophils % Seg Neuts % (Manual) 91.0 H Lymphocytes % (Manual) 2.0 L Seg Neutrophils # Seg Neutrophils # Man 19.8 H Lymphocytes # (Manual) 0.4 L Monocytes # (Manual) 1.1 H POC ABG pH ABG pH POC ABG pCO2 POC ABG pO2 ABG pO2 ABG HCO3 ABG Base Excess ABG Hemoglobin Oxyhemoglobin Sodium 135 L Potassium Chloride 95.9 L Carbon Dioxide BUN Creatinine 0.7 L Glucose POC Glucose Calcium Phosphorus Magnesium Direct Bilirubin AST Alkaline Phosphatase C-Reactive Protein Serum Total Protein Total Protein 5.7 L Albumin 2.5 L Prealbumin Hkbfl-9-Szhdwngnv Qcftn-8-Qrvzaqerz Gamma Globulins PEP Interpretation Triglycerides Urine pH Urine Creatinine Urine Total Protein Vancomycin Trough Digoxin Crossmatch 10/07/19 10/09/19 10/09/19 05:54 10:52 10:52 WBC 16.6 H RBC Hgb Hct MCHC RDW Plt Count 498 H Lymph % (Auto) [place] % (Auto) Lymph # [place] # Seg Neutrophils % Seg Neuts % (Manual) 93.0 H Lymphocytes % (Manual) 5.0 L Seg Neutrophils # Seg Neutrophils # Man 15.4 H Lymphocytes # (Manual) 0.8 L Monocytes # (Manual) POC ABG pH ABG pH POC ABG pCO2 POC ABG pO2 ABG pO2 ABG HCO3 ABG Base Excess ABG Hemoglobin Oxyhemoglobin Sodium Potassium Chloride 97.9 L Carbon Dioxide 20 L D BUN 23 H Creatinine 1.7 H D Glucose 109 H POC Glucose Calcium 8.1 L Phosphorus Magnesium Direct Bilirubin AST Alkaline Phosphatase C-Reactive Protein Serum Total Protein Total Protein Albumin Prealbumin Islum-2-Kayqzwnkg Ctmfa-0-Tbxcsdvsi Gamma Globulins PEP Interpretation Triglycerides Urine pH Urine Creatinine Urine Total Protein Vancomycin Trough Digoxin Crossmatch 10/09/19 10/10/19 10/10/19 17:23 05:30 05:30 WBC 14.6 H RBC Hgb 11.1 L Hct 33.5 L MCHC RDW Plt Count 527 H Lymph % (Auto) [place] % (Auto) Lymph # [place] # Seg Neutrophils % Seg Neuts % (Manual) Lymphocytes % (Manual) Seg Neutrophils # Seg Neutrophils # Man Lymphocytes # (Manual) Monocytes # (Manual) POC ABG pH ABG pH POC ABG pCO2 POC ABG pO2 ABG pO2 ABG HCO3 ABG Base Excess ABG Hemoglobin Oxyhemoglobin Sodium 130 L D Potassium 5.1 H Chloride 90.0 L 91.0 L Carbon Dioxide 20 L 20 L BUN 27 H 35 H Creatinine 1.9 H 2.0 H Glucose 104 H POC Glucose Calcium Phosphorus Magnesium Direct Bilirubin AST Alkaline Phosphatase C-Reactive Protein Serum Total Protein Total Protein Albumin Prealbumin Axldg-8-Hdeynpaof Pxpcv-1-Zamobpfkm Gamma Globulins PEP Interpretation Triglycerides Urine pH Urine Creatinine Urine Total Protein Vancomycin Trough Digoxin Crossmatch 10/10/19 10/10/19 10/11/19 08:33 08:44 05:41 WBC 13.2 H RBC Hgb 11.3 L Hct 33.8 L MCHC RDW 15.3 H Plt Count 543 H Lymph % (Auto) [place] % (Auto) Lymph # [place] # Seg Neutrophils % Seg Neuts % (Manual) Lymphocytes % (Manual) Seg Neutrophils # Seg Neutrophils # Man Lymphocytes # (Manual) Monocytes # (Manual) POC ABG pH ABG pH POC ABG pCO2 POC ABG pO2 ABG pO2 ABG HCO3 ABG Base Excess ABG Hemoglobin Oxyhemoglobin Sodium Potassium Chloride Carbon Dioxide BUN Creatinine Glucose 113 H POC Glucose 117 H Calcium Phosphorus Magnesium Direct Bilirubin AST Alkaline Phosphatase C-Reactive Protein Serum Total Protein Total Protein Albumin Prealbumin Lkyfl-1-Zqoelzkge Jwikh-1-Nwihnmald Gamma Globulins PEP Interpretation Triglycerides Urine pH Urine Creatinine Urine Total Protein Vancomycin Trough Digoxin Crossmatch 10/11/19 10/11/19 10/11/19 05:41 06:23 06:23 WBC RBC Hgb Hct MCHC RDW Plt Count Lymph % (Auto) [place] % (Auto) Lymph # [place] # Seg Neutrophils % Seg Neuts % (Manual) Lymphocytes % (Manual) Seg Neutrophils # Seg Neutrophils # Man Lymphocytes # (Manual) Monocytes # (Manual) POC ABG pH ABG pH POC ABG pCO2 POC ABG pO2 ABG pO2 ABG HCO3 ABG Base Excess ABG Hemoglobin Oxyhemoglobin Sodium 134 L Potassium Chloride 96.3 L Carbon Dioxide BUN 37 H Creatinine Glucose 58 L POC Glucose Calcium Phosphorus 4.90 H Magnesium Direct Bilirubin AST Alkaline Phosphatase C-Reactive Protein Serum Total Protein Total Protein Albumin Prealbumin Atowr-9-Epgbaednd Wyiiv-7-Xxtminiox Gamma Globulins PEP Interpretation Triglycerides Urine pH Urine Creatinine 118.2 H 116.8 H Urine Total Protein 105 H 104 H Vancomycin Trough Digoxin Crossmatch 10/11/19 10/12/19 10/12/19 09:00 06:09 06:09 WBC 13.8 H RBC 3.39 L Hgb 10.2 L Hct 30.9 L MCHC RDW 15.5 H Plt Count 459 H Lymph % (Auto) [place] % (Auto) Lymph # [place] # Seg Neutrophils % Seg Neuts % (Manual) Lymphocytes % (Manual) Seg Neutrophils # Seg Neutrophils # Man Lymphocytes # (Manual) Monocytes # (Manual) POC ABG pH ABG pH POC ABG pCO2 POC ABG pO2 ABG pO2 ABG HCO3 ABG Base Excess ABG Hemoglobin Oxyhemoglobin Sodium 131 L Potassium Chloride 96.2 L Carbon Dioxide 21 L BUN 43 H Creatinine Glucose 72 L POC Glucose Calcium Phosphorus Magnesium Direct Bilirubin AST Alkaline Phosphatase C-Reactive Protein Serum Total Protein 5.2 L Total Protein Albumin 1.9 L Prealbumin Kaleb-5-Ssvzigcda 0.9 H Jnced-1-Eowxgjjzm 1.0 H Gamma Globulins 0.7 L PEP Interpretation see below H Triglycerides Urine pH Urine Creatinine Urine Total Protein Vancomycin Trough Digoxin Crossmatch 10/12/19 10/12/19 10/12/19 08:20 09:30 09:30 WBC RBC Hgb Hct MCHC RDW Plt Count Lymph % (Auto) [place] % (Auto) Lymph # [place] # Seg Neutrophils % Seg Neuts % (Manual) Lymphocytes % (Manual) Seg Neutrophils # Seg Neutrophils # Man Lymphocytes # (Manual) Monocytes # (Manual) POC ABG pH ABG pH POC ABG pCO2 POC ABG pO2 63 L ABG pO2 ABG HCO3 ABG Base Excess ABG Hemoglobin Oxyhemoglobin Sodium Potassium Chloride Carbon Dioxide BUN Creatinine Glucose POC Glucose Calcium Phosphorus Magnesium 2.50 H Direct Bilirubin 0.3 H AST Alkaline Phosphatase C-Reactive Protein Serum Total Protein Total Protein 5.1 L Albumin 2.2 L Prealbumin Djeny-7-Hqlftmhao Utmvv-9-Xexzicvnp Gamma Globulins PEP Interpretation Triglycerides Urine pH Urine Creatinine Urine Total Protein Vancomycin Trough Digoxin Crossmatch 10/13/19 10/13/19 10/13/19 04:20 04:20 13:20 WBC 15.7 H RBC 3.64 L Hgb 10.9 L Hct 33.1 L MCHC RDW 15.8 H Plt Count 488 H Lymph % (Auto) [place] % (Auto) Lymph # [place] # Seg Neutrophils % Seg Neuts % (Manual) Lymphocytes % (Manual) Seg Neutrophils # Seg Neutrophils # Man Lymphocytes # (Manual) Monocytes # (Manual) POC ABG pH ABG pH POC ABG pCO2 POC ABG pO2 ABG pO2 ABG HCO3 ABG Base Excess ABG Hemoglobin Oxyhemoglobin Sodium Potassium Chloride Carbon Dioxide BUN 28 H Creatinine Glucose POC Glucose Calcium Phosphorus Magnesium Direct Bilirubin AST Alkaline Phosphatase C-Reactive Protein Serum Total Protein Total Protein Albumin Prealbumin Xsaqr-0-Ffrrwrcrd Utyey-2-Feopfabwd Gamma Globulins PEP Interpretation Triglycerides Urine pH Urine Creatinine Urine Total Protein Vancomycin Trough Digoxin Crossmatch See Detail 10/13/19 10/13/19 10/14/19 18:24 20:05 04:47 WBC 24.2 H RBC Hgb 10.9 L Hct 34.2 L MCHC RDW 17.0 H Plt Count 442 H Lymph % (Auto) [place] % (Auto) Lymph # [place] # Seg Neutrophils % Seg Neuts % (Manual) Lymphocytes % (Manual) Seg Neutrophils # Seg Neutrophils # Man Lymphocytes # (Manual) Monocytes # (Manual) POC ABG pH ABG pH 7.180 L* 7.278 L POC ABG pCO2 POC ABG pO2 ABG pO2 130.7 H ABG HCO3 ABG Base Excess -6.5 L -6.5 L ABG Hemoglobin 12.2 L 12.3 L Oxyhemoglobin 92.9 L Sodium Potassium Chloride Carbon Dioxide BUN Creatinine Glucose POC Glucose Calcium Phosphorus Magnesium Direct Bilirubin AST Alkaline Phosphatase C-Reactive Protein Serum Total Protein Total Protein Albumin Prealbumin Zasvz-0-Mmzvxbwao Qzgis-2-Xvxxbyogg Gamma Globulins PEP Interpretation Triglycerides Urine pH Urine Creatinine Urine Total Protein Vancomycin Trough Digoxin Crossmatch 10/14/19 10/14/19 10/14/19 04:47 05:40 10:14 WBC RBC Hgb Hct MCHC RDW Plt Count Lymph % (Auto) [place] % (Auto) Lymph # [place] # Seg Neutrophils % Seg Neuts % (Manual) Lymphocytes % (Manual) Seg Neutrophils # Seg Neutrophils # Man Lymphocytes # (Manual) Monocytes # (Manual) POC ABG pH ABG pH POC ABG pCO2 POC ABG pO2 ABG pO2 76.3 L ABG HCO3 19.1 L ABG Base Excess -5.8 L ABG Hemoglobin 10.9 L Oxyhemoglobin 93.4 L Sodium Potassium 5.1 H D Chloride 109.2 H Carbon Dioxide 17 L BUN 38 H Creatinine 1.8 H D Glucose 104 H POC Glucose Calcium 7.4 L Phosphorus 5.60 H Magnesium Direct Bilirubin AST Alkaline Phosphatase C-Reactive Protein Serum Total Protein Total Protein Albumin Prealbumin Fissj-5-Pdzafiozy Iksow-0-Hkyxesfbf Gamma Globulins PEP Interpretation Triglycerides Urine pH Urine Creatinine Urine Total Protein Vancomycin Trough Digoxin Crossmatch 10/14/19 10/15/19 10/15/19 23:46 04:32 04:32 WBC 15.5 H RBC 2.89 L Hgb 8.8 L Hct 27.3 L D MCHC RDW 16.6 H Plt Count Lymph % (Auto) [place] % (Auto) Lymph # [place] # Seg Neutrophils % Seg Neuts % (Manual) Lymphocytes % (Manual) Seg Neutrophils # Seg Neutrophils # Man Lymphocytes # (Manual) Monocytes # (Manual) POC ABG pH ABG pH POC ABG pCO2 POC ABG pO2 ABG pO2 ABG HCO3 ABG Base Excess ABG Hemoglobin Oxyhemoglobin Sodium 147 H Potassium Chloride 114.0 H Carbon Dioxide 19 L BUN 42 H Creatinine Glucose 112 H POC Glucose 113 H Calcium 7.3 L Phosphorus Magnesium Direct Bilirubin AST 72 H Alkaline Phosphatase C-Reactive Protein 30.60 H Serum Total Protein Total Protein 4.0 L D Albumin 1.7 L Prealbumin 0.030 L Autrg-4-Euccxqhlf Mdwwi-1-Beqdfluju Gamma Globulins PEP Interpretation Triglycerides Urine pH Urine Creatinine Urine Total Protein Vancomycin Trough Digoxin Crossmatch 10/15/19 10/15/19 10/15/19 05:30 12:08 17:23 WBC RBC Hgb Hct MCHC RDW Plt Count Lymph % (Auto) [place] % (Auto) Lymph # [place] # Seg Neutrophils % Seg Neuts % (Manual) Lymphocytes % (Manual) Seg Neutrophils # Seg Neutrophils # Man Lymphocytes # (Manual) Monocytes # (Manual) POC ABG pH ABG pH 7.296 L POC ABG pCO2 POC ABG pO2 ABG pO2 114.7 H ABG HCO3 ABG Base Excess -3.7 L ABG Hemoglobin 8.9 L Oxyhemoglobin Sodium Potassium Chloride Carbon Dioxide BUN Creatinine Glucose POC Glucose 106 H 106 H Calcium Phosphorus Magnesium Direct Bilirubin AST Alkaline Phosphatase C-Reactive Protein Serum Total Protein Total Protein Albumin Prealbumin Yuard-0-Yurdiyhhe Hloot-8-Veaizbhxy Gamma Globulins PEP Interpretation Triglycerides Urine pH Urine Creatinine Urine Total Protein Vancomycin Trough Digoxin Crossmatch 10/16/19 10/16/19 10/16/19 00:07 04:44 05:24 WBC RBC Hgb Hct MCHC RDW Plt Count Lymph % (Auto) [place] % (Auto) Lymph # [place] # Seg Neutrophils % Seg Neuts % (Manual) Lymphocytes % (Manual) Seg Neutrophils # Seg Neutrophils # Man Lymphocytes # (Manual) Monocytes # (Manual) POC ABG pH ABG pH POC ABG pCO2 POC ABG pO2 ABG pO2 ABG HCO3 ABG Base Excess ABG Hemoglobin Oxyhemoglobin Sodium 150 H Potassium Chloride 115.8 H Carbon Dioxide BUN 35 H Creatinine Glucose 129 H POC Glucose 119 H 129 H Calcium 7.3 L Phosphorus 1.80 L D Magnesium Direct Bilirubin AST Alkaline Phosphatase C-Reactive Protein Serum Total Protein Total Protein Albumin Prealbumin Mfcvl-0-Afekpbuey Japjs-9-Kbunrzmig Gamma Globulins PEP Interpretation Triglycerides Urine pH Urine Creatinine Urine Total Protein Vancomycin Trough Digoxin Crossmatch 10/16/19 10/16/19 10/16/19 06:53 09:20 11:58 WBC 14.6 H RBC 2.70 L Hgb 8.1 L Hct 25.2 L MCHC RDW 16.7 H Plt Count Lymph % (Auto) [place] % (Auto) Lymph # [place] # Seg Neutrophils % Seg Neuts % (Manual) 79.0 H Lymphocytes % (Manual) 4.0 L Seg Neutrophils # Seg Neutrophils # Man 11.5 H Lymphocytes # (Manual) 0.6 L Monocytes # (Manual) POC ABG pH ABG pH POC ABG pCO2 47.0 H POC ABG pO2 ABG pO2 ABG HCO3 ABG Base Excess ABG Hemoglobin Oxyhemoglobin Sodium Potassium Chloride Carbon Dioxide BUN Creatinine Glucose POC Glucose Calcium Phosphorus Magnesium Direct Bilirubin AST Alkaline Phosphatase C-Reactive Protein Serum Total Protein Total Protein Albumin Prealbumin Tetoy-2-Vjadecqcc Bmppm-0-Zjramwfpe Gamma Globulins PEP Interpretation Triglycerides Urine pH Urine Creatinine Urine Total Protein Vancomycin Trough Digoxin Crossmatch See Detail 10/16/19 10/16/19 10/16/19 15:23 17:50 23:58 WBC RBC Hgb Hct MCHC RDW Plt Count Lymph % (Auto) [place] % (Auto) Lymph # [place] # Seg Neutrophils % Seg Neuts % (Manual) Lymphocytes % (Manual) Seg Neutrophils # Seg Neutrophils # Man Lymphocytes # (Manual) Monocytes # (Manual) POC ABG pH ABG pH POC ABG pCO2 POC ABG pO2 ABG pO2 ABG HCO3 ABG Base Excess ABG Hemoglobin Oxyhemoglobin Sodium Potassium Chloride Carbon Dioxide BUN Creatinine Glucose POC Glucose 221 H 201 H 179 H Calcium Phosphorus Magnesium Direct Bilirubin AST Alkaline Phosphatase C-Reactive Protein Serum Total Protein Total Protein Albumin Prealbumin Xdqdg-0-Skawvgukv Cwshe-4-Bmoicsjcp Gamma Globulins PEP Interpretation Triglycerides Urine pH Urine Creatinine Urine Total Protein Vancomycin Trough Digoxin Crossmatch 10/17/19 10/17/19 10/17/19 04:08 04:08 05:41 WBC 22.3 H RBC 3.35 L Hgb 10.0 L Hct 31.2 L D MCHC RDW 16.1 H Plt Count Lymph % (Auto) [place] % (Auto) Lymph # [place] # Seg Neutrophils % Seg Neuts % (Manual) Lymphocytes % (Manual) Seg Neutrophils # Seg Neutrophils # Man Lymphocytes # (Manual) Monocytes # (Manual) POC ABG pH 7.310 L ABG pH POC ABG pCO2 52.8 H POC ABG pO2 70 L ABG pO2 ABG HCO3 ABG Base Excess ABG Hemoglobin Oxyhemoglobin Sodium 147 H Potassium Chloride 114.9 H Carbon Dioxide BUN 36 H Creatinine Glucose 165 H POC Glucose Calcium 6.9 L Phosphorus 2.20 L D Magnesium Direct Bilirubin AST Alkaline Phosphatase C-Reactive Protein Serum Total Protein Total Protein Albumin Prealbumin Dbtnm-9-Knsultygm Yoazp-8-Kmcjjydhy Gamma Globulins PEP Interpretation Triglycerides Urine pH Urine Creatinine Urine Total Protein Vancomycin Trough Digoxin Crossmatch 10/17/19 10/17/19 10/17/19 05:42 11:33 18:17 WBC RBC Hgb Hct MCHC RDW Plt Count Lymph % (Auto) [place] % (Auto) Lymph # [place] # Seg Neutrophils % Seg Neuts % (Manual) Lymphocytes % (Manual) Seg Neutrophils # Seg Neutrophils # Man Lymphocytes # (Manual) Monocytes # (Manual) POC ABG pH ABG pH POC ABG pCO2 POC ABG pO2 ABG pO2 ABG HCO3 ABG Base Excess ABG Hemoglobin Oxyhemoglobin Sodium Potassium Chloride Carbon Dioxide BUN Creatinine Glucose POC Glucose 149 H 154 H 163 H Calcium Phosphorus Magnesium Direct Bilirubin AST Alkaline Phosphatase C-Reactive Protein Serum Total Protein Total Protein Albumin Prealbumin Ktghd-8-Oidmdzyrr Aatqt-6-Ajvwyixen Gamma Globulins PEP Interpretation Triglycerides Urine pH Urine Creatinine Urine Total Protein Vancomycin Trough Digoxin Crossmatch 10/17/19 10/18/19 10/18/19 23:34 03:29 04:50 WBC RBC Hgb Hct MCHC RDW Plt Count Lymph % (Auto) [place] % (Auto) Lymph # [place] # Seg Neutrophils % Seg Neuts % (Manual) Lymphocytes % (Manual) Seg Neutrophils # Seg Neutrophils # Man Lymphocytes # (Manual) Monocytes # (Manual) POC ABG pH ABG pH POC ABG pCO2 POC ABG pO2 ABG pO2 78.8 L ABG HCO3 ABG Base Excess ABG Hemoglobin 8.8 L Oxyhemoglobin Sodium Potassium Chloride 111.8 H Carbon Dioxide BUN 27 H Creatinine 0.6 L Glucose 140 H POC Glucose 135 H Calcium 7.1 L Phosphorus 1.80 L Magnesium Direct Bilirubin AST Alkaline Phosphatase C-Reactive Protein Serum Total Protein Total Protein Albumin Prealbumin Wcpgl-6-Rywqiftlz Zgmvx-5-Fzkcynuds Gamma Globulins PEP Interpretation Triglycerides Urine pH Urine Creatinine Urine Total Protein Vancomycin Trough Digoxin Crossmatch 10/18/19 10/18/19 10/18/19 05:45 11:19 18:26 WBC RBC Hgb Hct MCHC RDW Plt Count Lymph % (Auto) [place] % (Auto) Lymph # [place] # Seg Neutrophils % Seg Neuts % (Manual) Lymphocytes % (Manual) Seg Neutrophils # Seg Neutrophils # Man Lymphocytes # (Manual) Monocytes # (Manual) POC ABG pH ABG pH POC ABG pCO2 POC ABG pO2 ABG pO2 ABG HCO3 ABG Base Excess ABG Hemoglobin Oxyhemoglobin Sodium Potassium Chloride Carbon Dioxide BUN Creatinine Glucose POC Glucose 145 H 152 H 125 H Calcium Phosphorus Magnesium Direct Bilirubin AST Alkaline Phosphatase C-Reactive Protein Serum Total Protein Total Protein Albumin Prealbumin Soqvp-5-Kiewlmmbj Opklq-8-Uotefqypi Gamma Globulins PEP Interpretation Triglycerides Urine pH Urine Creatinine Urine Total Protein Vancomycin Trough Digoxin Crossmatch 10/18/19 10/19/19 10/19/19 23:27 04:21 04:21 WBC RBC Hgb Hct MCHC RDW Plt Count Lymph % (Auto) [place] % (Auto) Lymph # [place] # Seg Neutrophils % Seg Neuts % (Manual) Lymphocytes % (Manual) Seg Neutrophils # Seg Neutrophils # Man Lymphocytes # (Manual) Monocytes # (Manual) POC ABG pH ABG pH POC ABG pCO2 POC ABG pO2 ABG pO2 ABG HCO3 ABG Base Excess ABG Hemoglobin Oxyhemoglobin Sodium Potassium Chloride 108.4 H Carbon Dioxide BUN 22 H Creatinine 0.5 L Glucose 123 H POC Glucose 127 H Calcium 7.4 L Phosphorus 1.80 L Magnesium Direct Bilirubin AST Alkaline Phosphatase C-Reactive Protein Serum Total Protein Total Protein Albumin Prealbumin Mdxgn-9-Ikairudln Qdbop-9-Gublwskmc Gamma Globulins PEP Interpretation Triglycerides Urine pH Urine Creatinine Urine Total Protein Vancomycin Trough Digoxin 0.7 L Crossmatch 10/19/19 10/19/19 10/19/19 05:00 05:35 11:26 WBC RBC Hgb Hct MCHC RDW Plt Count Lymph % (Auto) [place] % (Auto) Lymph # [place] # Seg Neutrophils % Seg Neuts % (Manual) Lymphocytes % (Manual) Seg Neutrophils # Seg Neutrophils # Man Lymphocytes # (Manual) Monocytes # (Manual) POC ABG pH ABG pH 7.456 H POC ABG pCO2 POC ABG pO2 ABG pO2 78.8 L ABG HCO3 ABG Base Excess ABG Hemoglobin 5.6 L Oxyhemoglobin Sodium Potassium Chloride Carbon Dioxide BUN Creatinine Glucose POC Glucose 124 H 111 H Calcium Phosphorus Magnesium Direct Bilirubin AST Alkaline Phosphatase C-Reactive Protein Serum Total Protein Total Protein Albumin Prealbumin Yywmc-0-Grvhihrnw Mzzwx-6-Kiwajjzos Gamma Globulins PEP Interpretation Triglycerides Urine pH Urine Creatinine Urine Total Protein Vancomycin Trough Digoxin Crossmatch 10/19/19 10/20/19 10/20/19 23:23 04:50 05:17 WBC RBC Hgb Hct MCHC RDW Plt Count Lymph % (Auto) [place] % (Auto) Lymph # [place] # Seg Neutrophils % Seg Neuts % (Manual) Lymphocytes % (Manual) Seg Neutrophils # Seg Neutrophils # Man Lymphocytes # (Manual) Monocytes # (Manual) POC ABG pH ABG pH POC ABG pCO2 POC ABG pO2 ABG pO2 ABG HCO3 ABG Base Excess ABG Hemoglobin Oxyhemoglobin Sodium Potassium Chloride 108.1 H Carbon Dioxide BUN Creatinine 0.4 L Glucose 134 H POC Glucose 129 H 123 H Calcium 7.1 L Phosphorus Magnesium Direct Bilirubin AST Alkaline Phosphatase C-Reactive Protein Serum Total Protein Total Protein Albumin Prealbumin Wwpgw-4-Rboaxtdpo Ymirx-7-Paggaplmb Gamma Globulins PEP Interpretation Triglycerides Urine pH Urine Creatinine Urine Total Protein Vancomycin Trough Digoxin Crossmatch 10/20/19 10/20/19 10/21/19 11:40 19:06 05:08 WBC RBC Hgb Hct MCHC RDW Plt Count Lymph % (Auto) [place] % (Auto) Lymph # [place] # Seg Neutrophils % Seg Neuts % (Manual) Lymphocytes % (Manual) Seg Neutrophils # Seg Neutrophils # Man Lymphocytes # (Manual) Monocytes # (Manual) POC ABG pH ABG pH POC ABG pCO2 POC ABG pO2 ABG pO2 ABG HCO3 ABG Base Excess ABG Hemoglobin Oxyhemoglobin Sodium Potassium Chloride Carbon Dioxide BUN Creatinine Glucose POC Glucose 139 H 117 H 131 H Calcium Phosphorus Magnesium Direct Bilirubin AST Alkaline Phosphatase C-Reactive Protein Serum Total Protein Total Protein Albumin Prealbumin Uxidb-0-Yutabkvyp Wbadh-4-Wmavkrnni Gamma Globulins PEP Interpretation Triglycerides Urine pH Urine Creatinine Urine Total Protein Vancomycin Trough Digoxin Crossmatch 10/21/19 10/21/19 10/21/19 05:30 12:04 17:31 WBC RBC Hgb Hct MCHC RDW Plt Count Lymph % (Auto) [place] % (Auto) Lymph # [place] # Seg Neutrophils % Seg Neuts % (Manual) Lymphocytes % (Manual) Seg Neutrophils # Seg Neutrophils # Man Lymphocytes # (Manual) Monocytes # (Manual) POC ABG pH ABG pH POC ABG pCO2 POC ABG pO2 ABG pO2 ABG HCO3 ABG Base Excess ABG Hemoglobin Oxyhemoglobin Sodium Potassium Chloride 107.8 H Carbon Dioxide BUN Creatinine 0.5 L Glucose 119 H POC Glucose 119 H 110 H Calcium 7.6 L Phosphorus Magnesium Direct Bilirubin AST Alkaline Phosphatase C-Reactive Protein Serum Total Protein Total Protein Albumin Prealbumin Bwkeu-8-Jprzaagzy Vfvez-8-Ibbmcoafy Gamma Globulins PEP Interpretation Triglycerides Urine pH Urine Creatinine Urine Total Protein Vancomycin Trough Digoxin Crossmatch 10/22/19 10/22/19 10/22/19 05:14 05:37 12:07 WBC RBC Hgb Hct MCHC RDW Plt Count Lymph % (Auto) [place] % (Auto) Lymph # [place] # Seg Neutrophils % Seg Neuts % (Manual) Lymphocytes % (Manual) Seg Neutrophils # Seg Neutrophils # Man Lymphocytes # (Manual) Monocytes # (Manual) POC ABG pH ABG pH POC ABG pCO2 POC ABG pO2 ABG pO2 ABG HCO3 ABG Base Excess ABG Hemoglobin Oxyhemoglobin Sodium Potassium Chloride Carbon Dioxide BUN Creatinine 0.5 L Glucose 116 H POC Glucose 110 H 126 H Calcium 7.7 L Phosphorus Magnesium Direct Bilirubin AST Alkaline Phosphatase C-Reactive Protein Serum Total Protein Total Protein Albumin Prealbumin Jmkfj-1-Qawbsgxdz Kwgds-7-Hbgudlqec Gamma Globulins PEP Interpretation Triglycerides Urine pH Urine Creatinine Urine Total Protein Vancomycin Trough Digoxin Crossmatch 12/08/0210/22/19 10/23/19 18:36 23:19 04:39 WBC RBC Hgb Hct MCHC RDW Plt Count Lymph % (Auto) [place] % (Auto) Lymph # [place] # Seg Neutrophils % Seg Neuts % (Manual) Lymphocytes % (Manual) Seg Neutrophils # Seg Neutrophils # Man Lymphocytes # (Manual) Monocytes # (Manual) POC ABG pH ABG pH POC ABG pCO2 POC ABG pO2 ABG pO2 ABG HCO3 ABG Base Excess ABG Hemoglobin Oxyhemoglobin Sodium Potassium Chloride Carbon Dioxide BUN Creatinine Glucose POC Glucose 120 H 127 H 112 H Calcium Phosphorus Magnesium Direct Bilirubin AST Alkaline Phosphatase C-Reactive Protein Serum Total Protein Total Protein Albumin Prealbumin Ojofz-5-Gjkowhfbg Khggr-9-Ojxsfahka Gamma Globulins PEP Interpretation Triglycerides Urine pH Urine Creatinine Urine Total Protein Vancomycin Trough Digoxin Crossmatch 10/23/19 10/23/19 10/23/19 04:47 05:15 10:44 WBC 18.3 H RBC 2.33 L Hgb 7.0 L Hct 21.5 L MCHC RDW 16.2 H Plt Count Lymph % (Auto) 4.9 L [place] % (Auto) 8.1 H Lymph # 0.9 L [place] # 1.5 H Seg Neutrophils % 86.7 H Seg Neuts % (Manual) Lymphocytes % (Manual) Seg Neutrophils # 15.9 H Seg Neutrophils # Man Lymphocytes # (Manual) Monocytes # (Manual) POC ABG pH ABG pH POC ABG pCO2 POC ABG pO2 ABG pO2 68.9 L ABG HCO3 28.7 H ABG Base Excess 3.4 H ABG Hemoglobin 6.6 L Oxyhemoglobin 94.1 L Sodium Potassium Chloride Carbon Dioxide BUN Creatinine 0.5 L Glucose 165 H POC Glucose Calcium 7.4 L Phosphorus Magnesium Direct Bilirubin AST Alkaline Phosphatase C-Reactive Protein Serum Total Protein Total Protein Albumin Prealbumin Uyxnu-8-Pgkqvfsit Cubeb-6-Nfahpbfcp Gamma Globulins PEP Interpretation Triglycerides Urine pH Urine Creatinine Urine Total Protein Vancomycin Trough Digoxin Crossmatch 10/23/19 10/23/19 10/23/19 10:44 11:46 11:50 WBC RBC Hgb Hct MCHC RDW Plt Count Lymph % (Auto) [place] % (Auto) Lymph # [place] # Seg Neutrophils % Seg Neuts % (Manual) Lymphocytes % (Manual) Seg Neutrophils # Seg Neutrophils # Man Lymphocytes # (Manual) Monocytes # (Manual) POC ABG pH ABG pH POC ABG pCO2 POC ABG pO2 ABG pO2 ABG HCO3 ABG Base Excess ABG Hemoglobin Oxyhemoglobin Sodium Potassium Chloride Carbon Dioxide BUN Creatinine Glucose POC Glucose 138 H Calcium Phosphorus Magnesium Direct Bilirubin 0.7 H AST Alkaline Phosphatase C-Reactive Protein Serum Total Protein Total Protein 4.5 L Albumin 1.2 L Prealbumin Mfefx-1-Xxldkmpka Jqkxh-6-Ncnwrnagu Gamma Globulins PEP Interpretation Triglycerides Urine pH Urine Creatinine Urine Total Protein Vancomycin Trough Digoxin Crossmatch See Detail 10/23/19 10/24/19 10/24/19 17:53 00:07 05:05 WBC RBC Hgb Hct MCHC RDW Plt Count Lymph % (Auto) [place] % (Auto) Lymph # [place] # Seg Neutrophils % Seg Neuts % (Manual) Lymphocytes % (Manual) Seg Neutrophils # Seg Neutrophils # Man Lymphocytes # (Manual) Monocytes # (Manual) POC ABG pH ABG pH POC ABG pCO2 POC ABG pO2 ABG pO2 ABG HCO3 ABG Base Excess ABG Hemoglobin Oxyhemoglobin Sodium Potassium 3.5 L Chloride Carbon Dioxide BUN Creatinine 0.5 L Glucose 116 H POC Glucose 137 H 110 H Calcium 8.0 L Phosphorus Magnesium Direct Bilirubin AST Alkaline Phosphatase C-Reactive Protein Serum Total Protein Total Protein Albumin Prealbumin Okqzq-2-Hkhkcjwsv Tcjej-1-Gjyhdqkof Gamma Globulins PEP Interpretation Triglycerides Urine pH Urine Creatinine Urine Total Protein Vancomycin Trough Digoxin Crossmatch 10/24/19 10/24/19 10/24/19 05:05 11:56 13:00 WBC 13.0 H RBC 2.73 L Hgb 8.0 L Hct 24.2 L MCHC RDW 17.9 H Plt Count Lymph % (Auto) 7.0 L [place] % (Auto) 9.5 H Lymph # 0.9 L [place] # 1.2 H Seg Neutrophils % 82.7 H Seg Neuts % (Manual) Lymphocytes % (Manual) Seg Neutrophils # 10.7 H Seg Neutrophils # Man Lymphocytes # (Manual) Monocytes # (Manual) POC ABG pH ABG pH POC ABG pCO2 POC ABG pO2 ABG pO2 ABG HCO3 ABG Base Excess ABG Hemoglobin Oxyhemoglobin Sodium Potassium Chloride Carbon Dioxide BUN Creatinine Glucose POC Glucose 159 H Calcium Phosphorus Magnesium Direct Bilirubin AST Alkaline Phosphatase C-Reactive Protein Serum Total Protein Total Protein Albumin Prealbumin Fhowm-9-Usbfizdkp Aiijs-8-Zyjbdponv Gamma Globulins PEP Interpretation Triglycerides 216 H Urine pH Urine Creatinine Urine Total Protein Vancomycin Trough Digoxin Crossmatch 10/24/19 10/24/19 10/25/19 17:42 23:45 04:19 WBC RBC Hgb Hct MCHC RDW Plt Count Lymph % (Auto) [place] % (Auto) Lymph # [place] # Seg Neutrophils % Seg Neuts % (Manual) Lymphocytes % (Manual) Seg Neutrophils # Seg Neutrophils # Man Lymphocytes # (Manual) Monocytes # (Manual) POC ABG pH ABG pH POC ABG pCO2 POC ABG pO2 ABG pO2 ABG HCO3 ABG Base Excess ABG Hemoglobin Oxyhemoglobin Sodium 147 H Potassium Chloride Carbon Dioxide 33 H BUN Creatinine 0.5 L Glucose 111 H POC Glucose 120 H 116 H Calcium Phosphorus Magnesium Direct Bilirubin AST Alkaline Phosphatase C-Reactive Protein Serum Total Protein Total Protein 5.7 L D Albumin 2.5 L Prealbumin Dbque-5-Kqojvjtvj Iymlq-7-Oatthbsly Gamma Globulins PEP Interpretation Triglycerides 230 H Urine pH Urine Creatinine Urine Total Protein Vancomycin Trough Digoxin Crossmatch 10/25/19 10/25/19 10/25/19 04:19 05:31 12:20 WBC RBC 2.69 L Hgb 8.1 L Hct 23.9 L MCHC RDW 17.3 H Plt Count Lymph % (Auto) [place] % (Auto) Lymph # [place] # Seg Neutrophils % Seg Neuts % (Manual) Lymphocytes % (Manual) Seg Neutrophils # Seg Neutrophils # Man Lymphocytes # (Manual) Monocytes # (Manual) POC ABG pH ABG pH POC ABG pCO2 POC ABG pO2 ABG pO2 ABG HCO3 ABG Base Excess ABG Hemoglobin Oxyhemoglobin Sodium Potassium Chloride Carbon Dioxide BUN Creatinine Glucose POC Glucose 126 H 114 H Calcium Phosphorus Magnesium Direct Bilirubin AST Alkaline Phosphatase C-Reactive Protein Serum Total Protein Total Protein Albumin Prealbumin Dvqin-7-Uwlohowiw Afcvu-7-Llkhsejkf Gamma Globulins PEP Interpretation Triglycerides Urine pH Urine Creatinine Urine Total Protein Vancomycin Trough Digoxin Crossmatch 10/25/19 10/25/19 10/26/19 18:30 23:09 06:15 WBC RBC Hgb Hct MCHC RDW Plt Count Lymph % (Auto) [place] % (Auto) Lymph # [place] # Seg Neutrophils % Seg Neuts % (Manual) Lymphocytes % (Manual) Seg Neutrophils # Seg Neutrophils # Man Lymphocytes # (Manual) Monocytes # (Manual) POC ABG pH ABG pH POC ABG pCO2 POC ABG pO2 ABG pO2 ABG HCO3 ABG Base Excess ABG Hemoglobin Oxyhemoglobin Sodium Potassium 3.5 L Chloride Carbon Dioxide BUN Creatinine 0.5 L Glucose 112 H POC Glucose 121 H 107 H Calcium 8.3 L Phosphorus Magnesium Direct Bilirubin AST Alkaline Phosphatase 148 H C-Reactive Protein Serum Total Protein Total Protein 5.9 L Albumin 2.4 L Prealbumin Nulsi-6-Tydfefgvr Pbqzi-8-Uihaokoxz Gamma Globulins PEP Interpretation Triglycerides Urine pH Urine Creatinine Urine Total Protein Vancomycin Trough Digoxin Crossmatch 10/26/19 10/26/19 10/26/19 06:15 12:21 17:35 WBC RBC Hgb Hct MCHC RDW Plt Count Lymph % (Auto) [place] % (Auto) Lymph # [place] # Seg Neutrophils % Seg Neuts % (Manual) Lymphocytes % (Manual) Seg Neutrophils # Seg Neutrophils # Man Lymphocytes # (Manual) Monocytes # (Manual) POC ABG pH ABG pH POC ABG pCO2 POC ABG pO2 ABG pO2 ABG HCO3 ABG Base Excess ABG Hemoglobin Oxyhemoglobin Sodium Potassium Chloride Carbon Dioxide BUN Creatinine Glucose POC Glucose 134 H 141 H Calcium Phosphorus Magnesium Direct Bilirubin AST Alkaline Phosphatase C-Reactive Protein Serum Total Protein Total Protein Albumin Prealbumin Hjfap-5-Syokihgzi Mcdbu-7-Jiluwyzqr Gamma Globulins PEP Interpretation Triglycerides 185 H Urine pH Urine Creatinine Urine Total Protein Vancomycin Trough Digoxin Crossmatch 10/26/19 10/27/19 10/27/19 Unknown 04:30 11:33 WBC RBC Hgb Hct MCHC RDW Plt Count Lymph % (Auto) [place] % (Auto) Lymph # [place] # Seg Neutrophils % Seg Neuts % (Manual) Lymphocytes % (Manual) Seg Neutrophils # Seg Neutrophils # Man Lymphocytes # (Manual) Monocytes # (Manual) POC ABG pH ABG pH POC ABG pCO2 POC ABG pO2 ABG pO2 ABG HCO3 ABG Base Excess ABG Hemoglobin Oxyhemoglobin Sodium Potassium 3.2 L Chloride Carbon Dioxide BUN 23 H Creatinine 0.6 L Glucose 130 H POC Glucose 131 H Calcium 7.9 L Phosphorus Magnesium Direct Bilirubin AST Alkaline Phosphatase C-Reactive Protein Serum Total Protein Total Protein Albumin Prealbumin Jxjtq-9-Wuhwykbue Hdhqf-9-Tdgcaggdd Gamma Globulins PEP Interpretation Triglycerides Urine pH 9.0 H Urine Creatinine Urine Total Protein Vancomycin Trough Digoxin Crossmatch 10/27/19 10/28/19 10/28/19 17:45 05:25 05:49 WBC RBC 2.85 L Hgb 8.3 L Hct 26.8 L MCHC 31 L RDW 17.4 H Plt Count Lymph % (Auto) 8.9 L [place] % (Auto) 14.3 H Lymph # 0.8 L [place] # 1.3 H Seg Neutrophils % 76.5 H Seg Neuts % (Manual) Lymphocytes % (Manual) Seg Neutrophils # Seg Neutrophils # Man Lymphocytes # (Manual) Monocytes # (Manual) POC ABG pH ABG pH POC ABG pCO2 POC ABG pO2 ABG pO2 ABG HCO3 ABG Base Excess ABG Hemoglobin Oxyhemoglobin Sodium Potassium Chloride Carbon Dioxide BUN Creatinine Glucose POC Glucose 121 H 120 H Calcium Phosphorus Magnesium Direct Bilirubin AST Alkaline Phosphatase C-Reactive Protein Serum Total Protein Total Protein Albumin Prealbumin Lwczo-9-Dmwycdaen Wbqvh-6-Dnvxxjvbp Gamma Globulins PEP Interpretation Triglycerides Urine pH Urine Creatinine Urine Total Protein Vancomycin Trough Digoxin Crossmatch 10/28/19 10/28/19 10/28/19 07:19 12:07 18:21 WBC RBC Hgb Hct MCHC RDW Plt Count Lymph % (Auto) [place] % (Auto) Lymph # [place] # Seg Neutrophils % Seg Neuts % (Manual) Lymphocytes % (Manual) Seg Neutrophils # Seg Neutrophils # Man Lymphocytes # (Manual) Monocytes # (Manual) POC ABG pH ABG pH POC ABG pCO2 POC ABG pO2 ABG pO2 ABG HCO3 ABG Base Excess ABG Hemoglobin Oxyhemoglobin Sodium Potassium Chloride Carbon Dioxide BUN 23 H Creatinine 0.5 L Glucose 129 H POC Glucose 127 H 130 H Calcium 8.0 L Phosphorus Magnesium Direct Bilirubin AST Alkaline Phosphatase C-Reactive Protein Serum Total Protein Total Protein Albumin Prealbumin Qlrqm-1-Fnqapowie Odmhy-2-Txrmaslqr Gamma Globulins PEP Interpretation Triglycerides Urine pH Urine Creatinine Urine Total Protein Vancomycin Trough Digoxin Crossmatch 10/28/19 10/29/19 10/29/19 23:30 05:30 05:30 WBC 11.2 H RBC 3.36 L Hgb 9.7 L Hct 29.4 L MCHC RDW 16.7 H Plt Count Lymph % (Auto) [place] % (Auto) 16.0 H Lymph # [place] # 1.8 H Seg Neutrophils % 70.2 H Seg Neuts % (Manual) Lymphocytes % (Manual) Seg Neutrophils # 7.9 H Seg Neutrophils # Man Lymphocytes # (Manual) Monocytes # (Manual) POC ABG pH ABG pH POC ABG pCO2 POC ABG pO2 ABG pO2 ABG HCO3 ABG Base Excess ABG Hemoglobin Oxyhemoglobin Sodium Potassium Chloride Carbon Dioxide BUN 23 H Creatinine 0.5 L Glucose POC Glucose 130 H Calcium 8.3 L Phosphorus Magnesium Direct Bilirubin AST Alkaline Phosphatase C-Reactive Protein Serum Total Protein Total Protein Albumin Prealbumin Zlauu-5-Caoadskws Fzvzz-0-Oqiwvopbh Gamma Globulins PEP Interpretation Triglycerides Urine pH Urine Creatinine Urine Total Protein Vancomycin Trough Digoxin Crossmatch 10/29/19 10/29/19 10/29/19 05:52 13:10 18:02 WBC RBC Hgb Hct MCHC RDW Plt Count Lymph % (Auto) [place] % (Auto) Lymph # [place] # Seg Neutrophils % Seg Neuts % (Manual) Lymphocytes % (Manual) Seg Neutrophils # Seg Neutrophils # Man Lymphocytes # (Manual) Monocytes # (Manual) POC ABG pH ABG pH POC ABG pCO2 POC ABG pO2 ABG pO2 ABG HCO3 ABG Base Excess ABG Hemoglobin Oxyhemoglobin Sodium Potassium Chloride Carbon Dioxide BUN Creatinine Glucose POC Glucose 111 H 140 H 140 H Calcium Phosphorus Magnesium Direct Bilirubin AST Alkaline Phosphatase C-Reactive Protein Serum Total Protein Total Protein Albumin Prealbumin Bmnxb-2-Cjctcoixb Jfuvh-7-Aievgtcew Gamma Globulins PEP Interpretation Triglycerides Urine pH Urine Creatinine Urine Total Protein Vancomycin Trough Digoxin Crossmatch 10/29/19 10/30/19 10/30/19 23:58 01:05 05:15 WBC RBC Hgb Hct MCHC RDW Plt Count Lymph % (Auto) [place] % (Auto) Lymph # [place] # Seg Neutrophils % Seg Neuts % (Manual) Lymphocytes % (Manual) Seg Neutrophils # Seg Neutrophils # Man Lymphocytes # (Manual) Monocytes # (Manual) POC ABG pH ABG pH POC ABG pCO2 62.0 H POC ABG pO2 168 H ABG pO2 ABG HCO3 ABG Base Excess ABG Hemoglobin Oxyhemoglobin Sodium 147 H Potassium Chloride 107.8 H Carbon Dioxide BUN 26 H Creatinine 0.5 L Glucose 139 H POC Glucose 161 H Calcium Phosphorus Magnesium 2.40 H Direct Bilirubin AST Alkaline Phosphatase C-Reactive Protein Serum Total Protein Total Protein Albumin Prealbumin Litqt-4-Btcvztebf Ibrdx-0-Ofgnmiqic Gamma Globulins PEP Interpretation Triglycerides Urine pH Urine Creatinine Urine Total Protein Vancomycin Trough Digoxin Crossmatch 10/30/19 10/30/19 10/30/19 05:15 06:32 09:44 WBC 13.8 H RBC 3.59 L Hgb 10.1 L Hct 32.4 L MCHC 31 L RDW 17.4 H Plt Count Lymph % (Auto) 11.2 L [place] % (Auto) 13.6 H Lymph # [place] # 1.9 H Seg Neutrophils % 75.1 H Seg Neuts % (Manual) Lymphocytes % (Manual) Seg Neutrophils # 10.4 H Seg Neutrophils # Man Lymphocytes # (Manual) Monocytes # (Manual) POC ABG pH ABG pH POC ABG pCO2 51.7 H POC ABG pO2 111 H ABG pO2 ABG HCO3 ABG Base Excess ABG Hemoglobin Oxyhemoglobin Sodium Potassium Chloride Carbon Dioxide BUN Creatinine Glucose POC Glucose 141 H Calcium Phosphorus Magnesium Direct Bilirubin AST Alkaline Phosphatase C-Reactive Protein Serum Total Protein Total Protein Albumin Prealbumin Olahb-3-Byskpvued Xftol-6-Uphhvbrgy Gamma Globulins PEP Interpretation Triglycerides Urine pH Urine Creatinine Urine Total Protein Vancomycin Trough Digoxin Crossmatch 10/30/19 10/31/19 10/31/19 18:10 04:18 04:18 WBC 11.7 H RBC 3.11 L Hgb 9.0 L Hct 27.9 L MCHC RDW 17.1 H Plt Count Lymph % (Auto) [place] % (Auto) Lymph # [place] # Seg Neutrophils % Seg Neuts % (Manual) Lymphocytes % (Manual) Seg Neutrophils # Seg Neutrophils # Man Lymphocytes # (Manual) Monocytes # (Manual) POC ABG pH ABG pH POC ABG pCO2 POC ABG pO2 ABG pO2 ABG HCO3 ABG Base Excess ABG Hemoglobin Oxyhemoglobin Sodium 148 H Potassium Chloride 108.7 H Carbon Dioxide BUN 37 H Creatinine 0.7 L Glucose 102 H POC Glucose 131 H Calcium Phosphorus Magnesium Direct Bilirubin AST Alkaline Phosphatase C-Reactive Protein Serum Total Protein Total Protein Albumin Prealbumin Jrhqa-4-Zhxtsujsd Kkipa-1-Ddngqxtbk Gamma Globulins PEP Interpretation Triglycerides Urine pH Urine Creatinine Urine Total Protein Vancomycin Trough Digoxin Crossmatch 10/31/19 10/31/19 10/31/19 11:32 12:55 18:10 WBC RBC Hgb Hct MCHC RDW Plt Count Lymph % (Auto) [place] % (Auto) Lymph # [place] # Seg Neutrophils % Seg Neuts % (Manual) Lymphocytes % (Manual) Seg Neutrophils # Seg Neutrophils # Man Lymphocytes # (Manual) Monocytes # (Manual) POC ABG pH ABG pH POC ABG pCO2 57.9 H POC ABG pO2 135 H ABG pO2 ABG HCO3 ABG Base Excess ABG Hemoglobin Oxyhemoglobin Sodium Potassium Chloride Carbon Dioxide BUN Creatinine Glucose POC Glucose 120 H Calcium Phosphorus Magnesium Direct Bilirubin AST Alkaline Phosphatase C-Reactive Protein Serum Total Protein Total Protein Albumin Prealbumin Wdipl-9-Kaeobkzgl Bnyol-9-Nyjpgwcad Gamma Globulins PEP Interpretation Triglycerides Urine pH Urine Creatinine Urine Total Protein Vancomycin Trough 41.7 H Digoxin Crossmatch 10/31/19 11/01/19 11/01/19 23:08 05:30 05:30 WBC 14.6 H RBC 3.13 L Hgb 8.9 L Hct 27.7 L MCHC RDW 17.0 H Plt Count Lymph % (Auto) [place] % (Auto) Lymph # [place] # Seg Neutrophils % Seg Neuts % (Manual) Lymphocytes % (Manual) Seg Neutrophils # Seg Neutrophils # Man Lymphocytes # (Manual) Monocytes # (Manual) POC ABG pH ABG pH POC ABG pCO2 POC ABG pO2 ABG pO2 ABG HCO3 ABG Base Excess ABG Hemoglobin Oxyhemoglobin Sodium 149 H Potassium Chloride 109.0 H Carbon Dioxide BUN 26 H Creatinine 0.7 L Glucose 129 H POC Glucose 109 H Calcium Phosphorus Magnesium Direct Bilirubin AST Alkaline Phosphatase C-Reactive Protein Serum Total Protein Total Protein Albumin Prealbumin Xydbo-2-Mbhdwojvs Dnuxa-1-Snoiloxrj Gamma Globulins PEP Interpretation Triglycerides Urine pH Urine Creatinine Urine Total Protein Vancomycin Trough Digoxin Crossmatch 11/01/19 11/01/19 11/01/19 06:09 06:10 11:52 WBC RBC Hgb Hct MCHC RDW Plt Count Lymph % (Auto) [place] % (Auto) Lymph # [place] # Seg Neutrophils % Seg Neuts % (Manual) Lymphocytes % (Manual) Seg Neutrophils # Seg Neutrophils # Man Lymphocytes # (Manual) Monocytes # (Manual) POC ABG pH ABG pH POC ABG pCO2 51.3 H POC ABG pO2 71 L ABG pO2 ABG HCO3 ABG Base Excess ABG Hemoglobin Oxyhemoglobin Sodium Potassium Chloride Carbon Dioxide BUN Creatinine Glucose POC Glucose 113 H 106 H Calcium Phosphorus Magnesium Direct Bilirubin AST Alkaline Phosphatase C-Reactive Protein Serum Total Protein Total Protein Albumin Prealbumin Bifek-9-Dexewnzeb Eaupj-5-Pkgkpyvge Gamma Globulins PEP Interpretation Triglycerides Urine pH Urine Creatinine Urine Total Protein Vancomycin Trough Digoxin Crossmatch 11/01/19 11/02/19 11/02/19 18:18 03:40 03:40 WBC RBC 2.36 L Hgb 7.2 L Hct 20.8 L D MCHC 35 H RDW 16.8 H Plt Count Lymph % (Auto) [place] % (Auto) Lymph # [place] # Seg Neutrophils % Seg Neuts % (Manual) Lymphocytes % (Manual) Seg Neutrophils # Seg Neutrophils # Man Lymphocytes # (Manual) Monocytes # (Manual) POC ABG pH ABG pH POC ABG pCO2 POC ABG pO2 ABG pO2 ABG HCO3 ABG Base Excess ABG Hemoglobin Oxyhemoglobin Sodium 157 H D Potassium 3.0 L D Chloride 117.2 H Carbon Dioxide BUN 23 H Creatinine 0.6 L Glucose 101 H POC Glucose 120 H Calcium 6.4 L D Phosphorus Magnesium Direct Bilirubin AST Alkaline Phosphatase C-Reactive Protein Serum Total Protein Total Protein Albumin Prealbumin Skmob-1-Qmldfqyxm Yewom-9-Beojlvwbh Gamma Globulins PEP Interpretation Triglycerides Urine pH Urine Creatinine Urine Total Protein Vancomycin Trough Digoxin Crossmatch 11/02/19 11/02/19 04:48 05:30 WBC RBC Hgb Hct MCHC RDW Plt Count Lymph % (Auto) [place] % (Auto) Lymph # [place] # Seg Neutrophils % Seg Neuts % (Manual) Lymphocytes % (Manual) Seg Neutrophils # Seg Neutrophils # Man Lymphocytes # (Manual) Monocytes # (Manual) POC ABG pH ABG pH POC ABG pCO2 50.1 H POC ABG pO2 74 L ABG pO2 ABG HCO3 ABG Base Excess ABG Hemoglobin Oxyhemoglobin Sodium Potassium Chloride Carbon Dioxide BUN Creatinine Glucose POC Glucose 109 H Calcium Phosphorus Magnesium Direct Bilirubin AST Alkaline Phosphatase C-Reactive Protein Serum Total Protein Total Protein Albumin Prealbumin Pmfsu-8-Ikpwvodty Dippl-8-Djqzvsczy Gamma Globulins PEP Interpretation Triglycerides Urine pH Urine Creatinine Urine Total Protein Vancomycin Trough Digoxin Crossmatch
[2019-11-02] MEDS: VANCOMYCIN 2,000 MG in SODIUM CHLORIDE 0.9% 500 ML 500 ML IV SCH (10:52)
[2019-11-02] MEDS: MICAFUNGIN 100 MG in SODIUM CHLORIDE 0.9% 100 ML IV SCH (10:52)
--- NOTE | 2019-11-02 11:36 | Progress Note ---
Assessment and Plan - Patient Problems (1) Dehiscence of closure of fascia, superficial or muscular Current Visit: No Status: Acute Qualifiers: Encounter type: initial encounter Qualified Code(s): T81.32XA - Disruption of internal operation (surgical) wound, not elsewhere classified, initial encounter Plan to address problem: Pt stable. s/p ex lap with closure of abdominal wall and wound vac placement (10/05) - POD#25; s/p Re-exploration, washout, transection of colon, Abthera placement - 10/13 - POD#17; s/p abd washout, partial omentectomy, partial colectomy with colostomy - 10/16 POD#15. s/p abd washout, feeding tube placement, AbThera placement - 10/19 - POD#12; Abdominal washout and closure - 10/22 - POD#10 Patient appears better. WBC normal. Temp normal this AM. Rec: 1) Neuro - intubated. sedated. 2) CV - BP normal today 3) Resp - On vent. Small bore CT on left. Mgmt per ICU team. 4) GI - Ostomy looks good. Functioning now. Sump drains - Right drain was accidentally pulled out (10/30). Left one is still functioning. New small bore catheter placed 10/30 - moderate output after drain was stripped. Appears like stool. Plan to connect both to wall suction - continuous. Wound Vac - wound looked good on last check. continue wound vac. Ostomy - functioning now. NGT - appearance looks more gastric now. Not sure if amount is correct in the chart. 5) - BUN/Cr stable. NaCl numbers may be erroneous. They will recheck. 6) ID - Abx per ID. Enterococcus on cultures. If patient has worsening labs/vitals, then rescan and place additional drains as appropriate. 7) Nutrition - Tube feeds at goal. 8) DVT prophylaxis - SCDs. Lovenox 9) Family -no family at bedside. I called the and explained my assessment. 10) PT - will need rehab. Note: Spoke with [facility] surgeon about possible transfer. They reviewed the notes that were sent and we discussed the case. They felt that they had nothing else to offer. They agreed with our management. Also agreed that another exploration should not be done. If needed, additional drains can be placed. They did suggest putting a Malecot tube in the rectum to decompress that area. (That was done this morning). This conversation was communicated to the . Please call with questions. Subjective Date of service: 11/02/19 Patient Reports: Positive: other (no new events) Objective Vital Signs - 12hr 11/02/19 11/02/19 11/02/19 00:00 00:01 01:00 Temperature Pulse Rate 99 H 99 H 100 H Pulse Rate [ Anterior Bilateral Throughout] Pulse Rate [ 104 H From Monitor] Respiratory 28 H 22 25 H Rate Respiratory Rate [Anterior Bilateral Throughout] Blood Pressure 113/78 96/50 O2 Sat by Pulse 94 91 91 Oximetry 11/02/19 11/02/19 11/02/19 02:00 03:00 03:01 Temperature 101.3 F H Pulse Rate 148 H 150 H Pulse Rate [ Anterior Bilateral Throughout] Pulse Rate [ From Monitor] Respiratory 22 24 Rate Respiratory Rate [Anterior Bilateral Throughout] Blood Pressure 91/55 103/64 O2 Sat by Pulse 94 97 Oximetry 11/02/19 11/02/19 11/02/19 04:00 04:01 04:30 Temperature Pulse Rate 99 H 142 H 150 H Pulse Rate [ Anterior Bilateral Throughout] Pulse Rate [ 104 H From Monitor] Respiratory 26 H 26 H Rate Respiratory Rate [Anterior Bilateral Throughout] Blood Pressure 123/66 87/63 O2 Sat by Pulse 97 97 97 Oximetry 11/02/19 11/02/19 11/02/19 05:01 06:01 07:01 Temperature Pulse Rate 111 H 100 H 96 H Pulse Rate [ Anterior Bilateral Throughout] Pulse Rate [ From Monitor] Respiratory 27 H 28 H 28 H Rate Respiratory Rate [Anterior Bilateral Throughout] Blood Pressure 87/63 150/65 120/77 O2 Sat by Pulse 97 97 97 Oximetry 11/02/19 11/02/19 11/02/19 07:27 07:48 08:00 Temperature Pulse Rate 95 H 93 H Pulse Rate [ 87 Anterior Bilateral Throughout] Pulse Rate [ 93 H From Monitor] Respiratory 28 H Rate Respiratory 25 H Rate [Anterior Bilateral Throughout] Blood Pressure 175/104 117/90 O2 Sat by Pulse 97 99 Oximetry 11/02/19 11/02/19 11/02/19 08:10 09:00 09:51 Temperature 98.8 F Pulse Rate 92 H 89 Pulse Rate [ Anterior Bilateral Throughout] Pulse Rate [ From Monitor] Respiratory 26 H Rate Respiratory Rate [Anterior Bilateral Throughout] Blood Pressure 152/68 135/63 O2 Sat by Pulse 96 Oximetry - General physical appearance no distress, no pain, other (awakens to voice. follows commands) - Respiratory normal expansion, normal respiratory effort - Abdomen soft, not distended, other (Left sump drain and ES with brownish liquid. wound vac in place. serosang drainage.) - Rectum other (normal exam - Malecot tube placed) - Labs 11/02/19 03:40 11/02/19 03:40 Diabetes panel 11/02/19 Range/Units 03:40 Sodium 157 H D (137-145) mmol/L Potassium 3.0 L D (3.6-5.0) mmol/L Chloride 117.2 H (98-107) mmol/L Carbon Dioxide 27 (22-30) mmol/L BUN 23 H (9-20) mg/dL Creatinine 0.6 L (0.8-1.5) mg/dL Glucose 101 H (75-100) mg/dL Calcium 6.4 L D (8.4-10.2) mg/dL Calcium panel 11/02/19 Range/Units 03:40 Calcium 6.4 L D (8.4-10.2) mg/dL Pituitary panel 11/02/19 Range/Units 03:40 Sodium 157 H D (137-145) mmol/L Potassium 3.0 L D (3.6-5.0) mmol/L Chloride 117.2 H (98-107) mmol/L Carbon Dioxide 27 (22-30) mmol/L BUN 23 H (9-20) mg/dL Creatinine 0.6 L (0.8-1.5) mg/dL Glucose 101 H (75-100) mg/dL Calcium 6.4 L D (8.4-10.2) mg/dL Adrenal panel 11/02/19 Range/Units 03:40 Sodium 157 H D (137-145) mmol/L Potassium 3.0 L D (3.6-5.0) mmol/L Chloride 117.2 H (98-107) mmol/L Carbon Dioxide 27 (22-30) mmol/L BUN 23 H (9-20) mg/dL Creatinine 0.6 L (0.8-1.5) mg/dL Glucose 101 H (75-100) mg/dL Calcium 6.4 L D (8.4-10.2) mg/dL
--- NOTE | 2019-11-02 12:43 | Progress Note ---
Assessment and Plan Cultures 10/10/2019 surgical culture: No growth at 72 hours 10/13/2019 tracheal aspirate culture: No growth 10/13/2019 peritoneal fluid: Enterococcus species (S to Penicillin, Vancomycin) 10/15/2019 blood culture: no growth 10/26/2019 urine culture: no growth thus far 10/26/2019 blood culture: no growth at 24 hours Assessment: 54 yo M PMhx CAD, COPD, recent complicated course of bowel perforation after a colonoscopy admitted with surgical site dehiscence of the fascia. Now with: # Acute sepsis - present with leukocytosis and tachycardia. Most likely secondary to fluid collection/abscess in the abdomen and anastomotic leak. # New fevers: new fevers on 10/25 and 10/26. Ongoing work up and empiric abx. Has indwelling PICC, [place] was removed 10/26. UA unremarkable for infection. # Intra-abdominal infection from anastomotic leak - s/p ex lap with closure of abdominal wall and wound vac placement (10/05/2019); s/p Re-exploration, washout, transection of colon, Abthera placement - 10/13/2019. s/p re- exploration and colostomy creation on 10/16/2019, intra-operatively was found to have "Small amount of continued leak from the old anastomotic site. Some contamination still present. Bowel was all viable". Back on OR on 10/19/2019, findings "small leak from stump staple line". OR again on 10/22/2019 for: Abdominal washout. Closure of abdominal fascia. Wound vac placement. Findings, "contamination from the sigmoid stump closure site." # COPD, acute respiratory failure: s/p extubation. On high flow O2. # Penicillin allergy - likely not a true allergy, reviewed EMR for previous exposure to PCNs, patient received several days of Zosyn in 2018 without issue. Recs: - given recent prolonged exposure to abx and TPN, at risk of MDR infections, candidemia, continue empiric Meropenem, Vancomycin and Micafungin - f/u blood culture, fungal blood culture. UA unremarkable. Whitfield was removed 10/26/2019. - fluid was drained yesterday and chest tube was placed for pneumonthorax. - Repeat CT AP yesterday without new abscess, but PTX worsening. Possible cause of fevers? Vs drug fever. Difficult to tell in this patient with numerous issues. [facility] ([facility]) M: [phone] O: [phone] F: [phone] Subjective Date of service: 11/02/19 Principal diagnosis: acute renal failure Interval history: Recurrently febrile. WBC improved. Objective - Exam Narrative Exam: Constitutional: awake, alert, no distress Head, Ears, Nose: Normocephalic, atraumatic. External ears, nose normal Eyes: Conjunctivae/corneas clear. No icterus. No ptosis. Neck: supple, no meningeal signs Oral: no thrush Cardiovascular: S1, S2 normal. Respiratory: rhonchi bilaterally GI: Midline abdominal VAC. bowel sounds +, Colostomy + drains + Musculoskeletal: anasarca, pedal edema + but improving Skin: No rash or abscess Hem/Lymphatic: No palpable cervical or supraclavicular nodes. No lymphangitis Psych: no agitation Neurological: awake, alert - Constitutional Vitals: Vital Signs Temp Pulse Resp BP Pulse Ox 98.8 F 88 26 H 169/70 97 11/02/19 08:10 11/02/19 11:43 11/02/19 09:00 11/02/19 11:43 11/02/19 11:43 Temperature -Last 24 Hours Temperature 98.8 F Temperature 101.3 F Temperature 97.6 F Temperature 101.8 F Temperature 101.6 F - Labs CBC & Chem 7: 11/02/19 03:40 11/02/19 03:40 Labs: Abnormal lab results 11/01/19 11/02/19 11/02/19 Range/Units 18:18 03:40 03:40 RBC 2.36 L (3.65-5.03) M/mm3 Hgb 7.2 L (11.8-15.2) gm/dl Hct 20.8 L D (35.5-45.6) % MCHC 35 H (32-34) % RDW 16.8 H (13.2-15.2) % POC ABG pCO2 (35-45) POC ABG pO2 (80-105) Sodium 157 H D (137-145) mmol/L Potassium 3.0 L D (3.6-5.0) mmol/L Chloride 117.2 H (98-107) mmol/L BUN 23 H (9-20) mg/dL Creatinine 0.6 L (0.8-1.5) mg/dL Glucose 101 H (75-100) mg/dL POC Glucose 120 H (70-105) Calcium 6.4 L D (8.4-10.2) mg/dL 11/02/19 11/02/19 Range/Units 04:48 05:30 RBC (3.65-5.03) M/mm3 Hgb (11.8-15.2) gm/dl Hct (35.5-45.6) % MCHC (32-34) % RDW (13.2-15.2) % POC ABG pCO2 50.1 H (35-45) POC ABG pO2 74 L (80-105) Sodium (137-145) mmol/L Potassium (3.6-5.0) mmol/L Chloride (98-107) mmol/L BUN (9-20) mg/dL Creatinine (0.8-1.5) mg/dL Glucose (75-100) mg/dL POC Glucose 109 H (70-105) Calcium (8.4-10.2) mg/dL
[2019-11-02 13:40] LABS: BUN/Creatinine Ratio 38; Blood Urea Nitrogen 23 mg/dL (9-20); Calcium 8.1 mg/dL (8.4-10.2); Hemolysis Index 24
[2019-11-02] MEDS: hydrALAZINE 20 MG/1 ML INJ IV PRN (15:34)
[2019-11-03] MEDS: IPRATROPIUM/ALBUTEROL SULFATE 3 ML AMPUL.NEB IH SCH ×4 (00:59→20:15)
[2019-11-03] MEDS: MEROPENEM/NS 1 GRAM/100 ML 1 GRAM/100 ML BAG IV SCH ×3 (02:15→18:28)
[2019-11-03] MEDS: ACETAMINOPHEN 325 MG/10.15 ML ORAL LIQD UNIT DOSE FEEDTUBE PRN ×2 (03:28→16:03)
[2019-11-03] MEDS: HYDROmorphone 2 MG/1 ML INJ IV PRN ×2 (03:28→09:45)
[2019-11-03 04:01] LABS: Hematocrit 25.8 % (35.5-45.6); Hemoglobin 8.5 gm/dl (11.8-15.2); Mean Corpuscular HGB Conc 33 % (32-34); Mean Corpuscular Volume 88 fl (84-94); Platelet Count 396 K/mm3 (140-440); Red Blood Count 2.93 M/mm3 (3.65-5.03); Red Cell Distribution Width 16.9 % (13.2-15.2)
[2019-11-03 04:28] LABS: BUN/Creatinine Ratio 28; Blood Urea Nitrogen 17 mg/dL (9-20); Calcium 8.3 mg/dL (8.4-10.2); Hemolysis Index 1
[2019-11-03] MEDS: BUDESONIDE 0.5 MG/2 ML NEBU IH SCH ×2 (07:14→20:16)
[2019-11-03] MEDS: ARFORMOTEROL 15 MCG/2 ML NEBU IH SCH ×2 (07:14→20:16)
[2019-11-03] MEDS: POTASSIUM CHLORIDE 10 MEQ 10 MEQ/100 ML BAG IV SCH ×2 (08:43→09:46)
--- NOTE | 2019-11-03 09:00 | Progress Note ---
Assessment and Plan Assessment and plan: Sepsis, recurrent. Patient with new fevers that have been persistent. ID restarted antibiotics. Etiology likely secondary to fluid collection/abscess in the abdomen and anastomotic leak. Follow-up blood culture, fungal blood culture, UA, urine culture, CXR ordered. Whitfield was removed and urinalysis sent. Given recent prolonged exposure to abx and TPN, at risk of MDR infections, ID started empiric Meropenem and Micafungin Dehiscence of closure of fascia * Went to OR for ex lap with closure of abdominal wall and wound vac placement (10/05) * Continued to decline with possible Air vs fluid, 10/10/19 IR went in and placed two drains, Noted to have possible fecal material * Returned to the OR 10/13/19 due to concern for intra-abdominal infection and was found to have with heavy contamination of abdomen patent had disruption of bowel anastomosis, abdominal washout, abthera placement and colon stapled transection and left bowel enterotomy from anastomosis completely open * Returned to OR on 10/16/19 for abdominal washout, Partial Omentectomy, Partial Colectomy, Colostomy Creation and AbThera Placement * Abdominal washout and closure - 10/22 * cont wound care * * Acute Respiratory failure with hypoxia -Extubated 10/25/19 - Re-intubated 10/30 -Surgical Instrument Maker following Sepsis On Merrem, Mifungin ID Physician following right sump drain fell out Surgeon following Left pneumothorax s/p chest tube placed 10/30 Left lower lobe pneumonia -Continue IV antibiotic -CTA chest showed left lower lobe consolidation with pleural effusion GUILLERMO on CKD -due to ATN due to sepsis -Improving, will monitor -SPEP and UPEP pending -No hydronephrosis on CT -Whitfield in place, monitor I/O's Severe Metabolic acidosis -Improved Acute Toxic Metabolic Encephalopathy/Delirium Tremens -Started on CIWA protocol due to hx of ETOH abuse, 6packs a day -Head CT scan negative for acute findings Acute blood loss anemia -H/H stable -Continue to monitor H&H and transfuse for hb<7 SVT, Atrial fib/flutter with RVR -treated with adenosine x1 -off amiodarone and cardizem drip. On oral amiodarone and IV Lopressor. -HR currently controlled -Cardiology following Hypotension -Off esmolol drip -s/p IV fluid boluses, BP stable Hypophosphatemia -will monitor level Hypernatremia start D5W Hypokalemia Replace iv Hx of Hypertension -Stable Hyperlipidemia -stable Atypical chest pain -probably secondary to pneumonitis -troponin levels neg Hx of AL/CAD -s/p PCI of the circumflex and second vessel POBA of the distal LAD occlusion. Left ventricle fraction of 45-50%. Morbid obesity with BMI of 43.4 -Lifestyle modification recommended COPD -Stable -cont neb tx Moderate Protein calorie malnutrition secondary to surgery -On TPN -Nutrition following Tobacco abuse -Cessation recommended Morbid obesity with BMI of 45.4 -Lifestyle modification recommended DVT and GI ppx: Lovenox/PPI Disp: Prognosis guarded The high probability of a clinically significant, sudden or life threatening deterioration of the [respiratory] system(s) required my full and direct attention, intervention and personal management. The aggregate critical care time was [33] minutes. This time is in addition to time spent performing reported procedures but includes the following: [x] Data Review and interpretation [x] Patient assessment and monitoring of vital signs [x] Documentation [x] Medication orders and management History Interval history: Re-intubated 10/30 Still having fevers Hospitalist Physical - Physical exam Narrative exam: Gen: Not in acute distress, Intubated, sedated HEENT: Normocephalic, atraumatic Neck: supple, no JVD Heart: S1 and S2 reg, no murmurs, rubs or gallop Lungs: Chest tube on left, Abd: soft, NT, ostomy, wound vac, left drain Ext: No edema, no clubbing no cyanosis Neuro: Intubated, sedated,opens eyes, follows commands - Constitutional Vitals: Temp Pulse Resp BP Pulse Ox 98.8 F 85 27 H 153/65 98 11/03/19 03:08 11/03/19 07:15 11/03/19 07:15 11/03/19 07:15 11/03/19 07:15 General appearance: Present: no acute distress, obese Results - Labs CBC & Chem 7: 11/03/19 03:42 11/03/19 03:42 Labs: Laboratory Last Values WBC 10.5 K/mm3 (4.5-11.0) 11/03/19 03:42 RBC 2.93 M/mm3 (3.65-5.03) L 11/03/19 03:42 Hgb 8.5 gm/dl (11.8-15.2) L 11/03/19 03:42 Hct 25.8 % (35.5-45.6) L 11/03/19 03:42 MCV 88 fl (84-94) 11/03/19 03:42 MCH 29 pg (28-32) 11/03/19 03:42 MCHC 33 % (32-34) 11/03/19 03:42 RDW 16.9 % (13.2-15.2) H 11/03/19 03:42 Plt Count 396 K/mm3 (140-440) 11/03/19 03:42 Lymph % (Auto) 11.2 % (13.4-35.0) L 10/30/19 05:15 [place] % (Auto) 13.6 % (0.0-7.3) H 10/30/19 05:15 Eos % (Auto) 0.0 % (0.0-4.3) 10/30/19 05:15 Baso % (Auto) 0.1 % (0.0-1.8) 10/30/19 05:15 Lymph # 1.5 K/mm3 (1.2-5.4) 10/30/19 05:15 [place] # 1.9 K/mm3 (0.0-0.8) H 10/30/19 05:15 Eos # 0.0 K/mm3 (0.0-0.4) 10/30/19 05:15 Baso # 0.0 K/mm3 (0.0-0.1) 10/30/19 05:15 Add Manual Diff Complete 10/16/19 09:20 Total Counted 100 10/16/19 09:20 Seg Neutrophils % 75.1 % (40.0-70.0) H 10/30/19 05:15 Seg Neuts % (Manual) 79.0 % (40.0-70.0) H 10/16/19 09:20 Band Neutrophils % 12.0 % 10/16/19 09:20 Lymphocytes % (Manual) 4.0 % (13.4-35.0) L 10/16/19 09:20 Reactive Lymphs % (Man) 0 % 10/16/19 09:20 Monocytes % (Manual) 2.0 % (0.0-7.3) 10/16/19 09:20 Eosinophils % (Manual) 0 % (0.0-4.3) 10/16/19 09:20 Basophils % (Manual) 0 % (0.0-1.8) 10/16/19 09:20 Metamyelocytes % 2.0 % 10/16/19 09:20 Myelocytes % 1.0 % 10/16/19 09:20 Promyelocytes % 0 % 10/16/19 09:20 Blast Cells % 0 % 10/16/19 09:20 Nucleated RBC % Not Reportable 10/16/19 09:20 Seg Neutrophils # 10.4 K/mm3 (1.8-7.7) H 10/30/19 05:15 Seg Neutrophils # Man 11.5 K/mm3 (1.8-7.7) H 10/16/19 09:20 Band Neutrophils # 1.8 K/mm3 10/16/19 09:20 Lymphocytes # (Manual) 0.6 K/mm3 (1.2-5.4) L 10/16/19 09:20 Abs React Lymphs (Man) 0.0 K/mm3 10/16/19 09:20 Monocytes # (Manual) 0.3 K/mm3 (0.0-0.8) 10/16/19 09:20 Eosinophils # (Manual) 0.0 K/mm3 (0.0-0.4) 10/16/19 09:20 Basophils # (Manual) 0.0 K/mm3 (0.0-0.1) 10/16/19 09:20 Metamyelocytes # 0.3 K/mm3 10/16/19 09:20 Myelocytes # 0.1 K/mm3 10/16/19 09:20 Promyelocytes # 0.0 K/mm3 10/16/19 09:20 Blast Cells # 0.0 K/mm3 10/16/19 09:20 WBC Morphology Not Reportable 10/16/19 09:20 Hypersegmented Neuts Not Reportable 10/16/19 09:20 Hyposegmented Neuts Not Reportable 10/16/19 09:20 Hypogranular Neuts Not Reportable 10/16/19 09:20 Smudge Cells Not Reportable 10/16/19 09:20 Toxic Granulation Not Reportable 10/16/19 09:20 Toxic Vacuolation Not Reportable 10/16/19 09:20 Dohle Bodies Not Reportable 10/16/19 09:20 Pelger-Huet Anomaly Not Reportable 10/16/19 09:20 Andres Rods Not Reportable 10/16/19 09:20 Platelet Estimate Consistent w auto 10/16/19 09:20 Clumped Platelets Not Reportable 10/16/19 09:20 Plt Clumps, EDTA Not Reportable 10/16/19 09:20 Large Platelets Not Reportable 10/16/19 09:20 Giant Platelets Not Reportable 10/16/19 09:20 Platelet Satelliting Not Reportable 10/16/19 09:20 Plt Morphology Comment Not Reportable 10/16/19 09:20 RBC Morphology Not Reportable 10/16/19 09:20 Dimorphic RBCs Not Reportable 10/16/19 09:20 Polychromasia Few 10/16/19 09:20 Hypochromasia Few 10/16/19 09:20 Poikilocytosis Not Reportable 10/16/19 09:20 Anisocytosis Not Reportable 10/16/19 09:20 Microcytosis Not Reportable 10/16/19 09:20 Macrocytosis Not Reportable 10/16/19 09:20 Spherocytes Not Reportable 10/16/19 09:20 Pappenheimer Bodies Not Reportable 10/16/19 09:20 Sickle Cells Not Reportable 10/16/19 09:20 Target Cells Few 10/16/19 09:20 Tear Drop Cells Not Reportable 10/16/19 09:20 Ovalocytes Not Reportable 10/16/19 09:20 Helmet Cells Not Reportable 10/16/19 09:20 V[place] Bodies Not Reportable 10/16/19 09:20 [place] Rings Not Reportable 10/16/19 09:20 Bishnu Cells Not Reportable 10/16/19 09:20 Bite Cells Not Reportable 10/16/19 09:20 Crenated Cell Not Reportable 10/16/19 09:20 Elliptocytes Not Reportable 10/16/19 09:20 Acanthocytes (Spur) Not Reportable 10/16/19 09:20 Rouleaux Not Reportable 10/16/19 09:20 Hemoglobin C Crystals Not Reportable 10/16/19 09:20 Schistocytes Not Reportable 10/16/19 09:20 Malaria parasites Not Reportable 10/16/19 09:20 Toni Bodies Not Reportable 10/16/19 09:20 Hem Pathologist Commnt No 10/16/19 09:20 POC ABG pH 7.422 (7.35-7.45) 11/03/19 04:28 ABG pH 7.390 pH Units (7.350-7.450) 10/23/19 04:47 POC ABG pCO2 45.4 (35-45) H 11/03/19 04:28 ABG pCO2 48.4 mm Hg 10/23/19 04:47 POC ABG pO2 83 (80-105) 11/03/19 04:28 ABG pO2 68.9 mm Hg (80.0-90.0) L 10/23/19 04:47 POC ABG HCO3 29.6 (22-26 mml/L) 11/03/19 04:28 ABG HCO3 28.7 mmol/L (20.0-26.0) H 10/23/19 04:47 POC ABG Total CO2 31 (23-27mmol/L) 11/03/19 04:28 POC ABG O2 Sat 96 11/03/19 04:28 ABG O2 Saturation 96.6 % (95.0-99.0) 10/23/19 04:47 ABG O2 Content 8.8 (0.0-44) 10/23/19 04:47 POC ABG Base Excess 5 ((-2) - (+3)mmol/L) 11/03/19 04:28 ABG Base Excess 3.4 mmol/L (-2.0-3.0) H 10/23/19 04:47 ABG Hemoglobin 6.6 gm/dl (14.0-18.0) L 10/23/19 04:47 ABG Carboxyhemoglobin 2.1 % (0.0-5.0) 10/23/19 04:47 ABG Methemoglobin 0.5 % (0.0-1.5) 10/23/19 04:47 Oxyhemoglobin 94.1 % (95.0-99.0) L 10/23/19 04:47 FiO2 40 % 11/03/19 04:28 Sodium 147 mmol/L (137-145) H 11/03/19 03:42 Potassium 3.5 mmol/L (3.6-5.0) L D 11/03/19 03:42 Chloride 108.6 mmol/L (98-107) H 11/03/19 03:42 Carbon Dioxide 28 mmol/L (22-30) 11/03/19 03:42 Anion Gap 14 mmol/L 11/03/19 03:42 BUN 17 mg/dL (9-20) 11/03/19 03:42 Creatinine 0.6 mg/dL (0.8-1.5) L 11/03/19 03:42 Estimated GFR > 60 ml/min 11/03/19 03:42 BUN/Creatinine Ratio 28 % 11/03/19 03:42 Glucose 109 mg/dL (75-100) H 11/03/19 03:42 POC Glucose 98 (70-105) 11/03/19 05:21 Hemoglobin A1c 5.7 % (4-6) 10/06/19 05:36 Lactic Acid 1.10 mmol/L (0.7-2.0) 10/13/19 04:20 Calcium 8.3 mg/dL (8.4-10.2) L 11/03/19 03:42 Ionized Calcium 5.2 mg/dL (4.8-5.6) 10/18/19 07:41 Phosphorus 2.70 mg/dL (2.5-4.5) 11/02/19 12:43 Magnesium 2.40 mg/dL (1.7-2.3) H 11/02/19 12:43 Total Bilirubin 1.10 mg/dL (0.1-1.2) 10/26/19 06:15 Direct Bilirubin 0.7 mg/dL (0-0.2) H 10/23/19 10:44 Indirect Bilirubin 0.1 mg/dL 10/23/19 10:44 AST 23 units/L (5-40) 10/26/19 06:15 ALT 13 units/L (7-56) 10/26/19 06:15 Alkaline Phosphatase 148 units/L (35-129) H 10/26/19 06:15 Ammonia 49.0 umol/L (25-60) 10/13/19 04:20 Troponin T < 0.010 ng/mL (0.00-0.029) 10/09/19 17:23 C-Reactive Protein 30.60 mg/dL (0.00-1.30) H 10/15/19 04:32 Serum Total Protein 5.2 g/dL (6.1-8.1) L 10/11/19 09:00 Total Protein 5.9 g/dL (6.3-8.2) L 10/26/19 06:15 Albumin 2.4 g/dL (3.9-5) L 10/26/19 06:15 Albumin/Globulin Ratio 0.7 % 10/26/19 06:15 Prealbumin 0.030 g/L (0.200-0.400) L 10/15/19 04:32 [id number] See scanned result 10/11/19 Unknown [id number] See scanned result 10/11/19 Unknown Beta Globulins See scanned result 10/11/19 Unknown Gamma Globulins See scanned result 10/11/19 Unknown Abnorm Protein Band 1 see below 10/11/19 09:00 PEP Interpretation See scanned result 10/11/19 Unknown Triglycerides 185 mg/dL (2-149) H 10/26/19 06:15 Urine Color Yellow (Yellow) 10/26/19 Unknown Urine Turbidity Clear (Clear) 10/26/19 Unknown Urine pH 9.0 (5.0-7.0) H 10/26/19 Unknown Ur Specific [place] 1.011 (1.003-1.030) 10/26/19 Unknown Urine Protein 30 mg/dl mg/dL (Negative) 10/26/19 Unknown Urine Glucose (UA) Neg mg/dL (Negative) 10/26/19 Unknown Urine Ketones Neg mg/dL (Negative) 10/26/19 Unknown Urine Blood Neg (Negative) 10/26/19 Unknown Urine Nitrite Neg (Negative) 10/26/19 Unknown Urine Bilirubin Neg (Negative) 10/26/19 Unknown Urine Urobilinogen < 2.0 mg/dL (<2.0) 10/26/19 Unknown Ur Leukocyte Esterase Neg (Negative) 10/26/19 Unknown Urine WBC (Auto) 1.0 /HPF (0.0-6.0) 10/26/19 Unknown Urine RBC (Auto) 1.0 /HPF (0.0-6.0) 10/26/19 Unknown Urine Bacteria (Auto) 1+ /HPF (Negative) 10/11/19 06:23 Urine Mucus Few /HPF 10/26/19 Unknown Urine Eosinophils None seen (None Seen) 10/11/19 06:23 Ur Random Creatinine See scanned result 10/11/19 Unknown U Random Total Protein See scanned result 10/11/19 Unknown Urine Creatinine 116.8 mg/dL (0.1-20.0) H 10/11/19 06:23 Urine Creatinine 118.2 mg/dL (0.1-20.0) H 10/11/19 06:23 Protein/Creatinin Ratio See scanned result 10/11/19 Unknown Urine Sodium 14 mmol/L 10/11/19 06:23 Urine Total Protein 104 mg/dL (5-11.8) H 10/11/19 06:23 Urine Total Protein 105 mg/dL (5-11.8) H 10/11/19 06:23 U Abnormal Prot Band 1 See scanned result 10/11/19 Unknown U Abnormal Prot Band 2 See scanned result 10/11/19 Unknown U Abnormal Prot Band 3 See scanned result 10/11/19 Unknown Vancomycin Trough 41.7 ug/mL (5.0-20.0) H 10/31/19 12:55 Random Vancomycin 9.6 ug/mL (0-40.0) 11/03/19 03:42 Digoxin 0.7 ng/mL (0.9-2.0) L 10/19/19 04:21 Blood Type A POSITIVE 10/23/19 11:50 Antibody Screen Negative 10/23/19 11:50 Crossmatch See Detail 10/23/19 11:50 Active Medications - Current Medications Current Medications: Generic Name Dose Route Start Last Admin Trade Name Freq PRN Reason Stop Dose Admin Acetaminophen 650 mg 10/25/19 13:00 11/03/19 03:28 Tylenol FEEDTUBE 650 mg Q4H PRN Administration Fever >100.5 Albuterol 2.5 mg 10/05/19 21:36 Proventil IH Q4HRT PRN Shortness Of Breath Albuterol/Ipratropium 1 ampul 10/06/19 02:00 11/03/19 07:15 Duoneb *Not For Prn Use* IH 1 ampul Q6HRT VERÓNICA Administration Amiodarone HCl 200 mg 10/23/19 13:00 11/02/19 09:52 Cordarone PO 200 mg QDAY VERÓNICA Administration Lipase/Protease/Amylase 1 each 10/20/19 10:37 Pancremeeta More[place] 10,500 Unit FEEDTUBE PRN PRN For Clogged Feeding Tube Arformoterol Tartrate 15 mcg 10/06/19 08:30 11/03/19 07:14 Brovana Nebu IH 15 mcg Q12HRT VERÓNICA Administration Budesonide 0.5 mg 10/07/19 12:20 11/03/19 07:14 Pulmicort IH 0.5 mg Q12HRT VERÓNICA Administration Citalopram Hydrobromide 20 mg 10/27/19 12:00 11/02/19 09:52 Celexa PO 20 mg DAILY VERÓNICA Administration Fentanyl 50 mcg 10/25/19 12:35 11/02/19 11:55 Sublimaze IV 50 mcg Q2H PRN Administration PAIN SCORE </=5 Haloperidol Lactate 5 mg 10/25/19 18:22 11/02/19 22:44 Haldol IV 5 mg Q6H PRN Administration Agitation Hydralazine HCl 10 mg 10/28/19 14:09 11/02/19 15:34 Apresoline IV 10 mg Q4HR PRN Administration Hypertension Hydromorphone HCl 2 mg 10/25/19 12:35 11/03/19 03:28 Dilaudid IV 2 mg Q4H PRN Administration PAIN SCORE >/=6 MEROPENEM/NS 1 GRAM/100 ML 1 gram in 100 mls @ 100 mls/hr 10/26/19 18:30 11/03/19 02:15 Merrem/Ns 1 Gram/100 Ml IV 100 mls/hr Q8H VERÓNICA Administration Protocol Micafungin Sodium 100 mg/ 100 mls @ 100 mls/hr 10/26/19 18:30 11/02/19 10:52 Sodium Chloride IV 100 mls/hr QDAY VERÓNICA Administration Protocol Dextrose 1,000 mls @ 75 mls/hr 11/02/19 09:00 11/02/19 21:44 D5w IV 75 mls/hr DIRECT VERÓNICA Administration Vancomycin HCl 2,000 mg/ 540 mls @ 250 mls/hr 11/02/19 10:00 11/02/19 10:52 Sodium Chloride IV 250 mls/hr Q24HR VERÓNICA Administration Potassium Chloride 10 meq in 100 mls @ 100 mls/hr 11/03/19 08:00 11/03/19 08:43 Kcl 10meq/100ml IV 11/03/19 09:59 100 mls/hr Q1H VERÓNICA Administration Insulin Human Lispro 0 unit 10/14/19 12:00 11/03/19 00:00 Humalog SUB-Q Not Given Q6HR [facility] Protocol Lisinopril 20 mg 10/30/19 10:00 11/02/19 09:51 Zestril PO 20 mg QDAY VERÓNICA Administration Metoprolol Tartrate 2.5 mg 10/15/19 15:34 11/01/19 18:00 Metoprolol IV 2.5 mg Q4HR PRN Administration HR >130 Metoprolol Tartrate 50 mg 10/25/19 14:00 11/02/19 21:37 Metoprolol PO 50 mg Q8HR VERÓNICA Administration Multi-Ingred Cream/Lotion/Oil/Oint 1 applic 10/14/19 02:19 Artificial Tears Ophth Oint OU Q4HR PRN Dry Eye(s) Ondansetron HCl 4 mg 10/05/19 21:22 10/11/19 18:20 Zofran IV 4 mg Q3H PRN Administration Nausea And Vomiting Pantoprazole Sodium 40 mg 10/15/19 10:00 11/02/19 09:51 Protonix IV 40 mg QDAY VERÓNICA Administration Simple Syrup 15 ml 10/20/19 10:37 Simple Syrup FEEDTUBE PRN PRN Hypoglycemia Simple Syrup 30 ml 10/20/19 10:37 Simple Syrup FEEDTUBE PRN PRN Hypoglycemia Sodium Bicarbonate 325 mg 10/20/19 10:37 Sodium Bicarbonate FEEDTUBE PRN PRN For Clogged Feeding Tube Sodium Chloride 10 ml 10/05/19 21:22 10/19/19 09:29 Sodium Chloride Flush Syringe 10 Ml IV 10 ml PRN PRN Administration LINE FLUSH Nutrition/Malnutrition Assess - Dietary Evaluation Nutrition/Malnutrition Findings: Nutrition Notes Start: 10/08/19 11:36 Freq: Status: Active Protocol: Document 11/02/19 11:00 DW (Rec: 11/02/19 11:16 DW [id number]) Co-Sign 11/02/19 11:00 LP Nutrition Notes Initial or Follow up Reassessment Current Diagnosis Acute Kidney Injury,COPD, Hypertension Other Pertinent Diagnosis intra-abdominal infection, disruption of bowel anastomosis, LE edema Current Diet Vital 1.2 at 70 ml/hr Labs/Tests Na 157 K 3.0 BUN 23 Cr 0.3 Pertinent Medications Pulmicort D5W at 75 ml/hr Height 6 ft Weight 145 kg [place] Body Weight (kg) 80.90 BMI 43.3 Weight Status Morbidly Obese Subjective/Other Information FU TF tolerance and Na labs Upon arrival pt at goal of 70ml/hr. Per MD new BMP to be taken because he is unsure if Na lab is correct. MD stated to hold TF because during suction, solution is brownish color, wants to be sure it is not GI related. Percent of energy/protein needs met: 99%/74% Burn Absent Trauma Absent GI Symptoms None Current % PO Negligible Minimum of two criteria No Fluid Accumulation Mild (non-severe) #2 Nutrition Diagnosis Inadequate oral intake Diagnosis Progress(for reassessment Continues documentation) #1 Nutrition Diagnosis Increased nutrient needs ( specify in comment below) Diagnosis Progress(for reassessment Continues documentation) Is patient on ventilator? Yes Is Patient Ambulatory and/or Out of Bed No REE-([place]-confined to bed) 2785.236 Kcal/Kg value to use for calculation 14 Approximate Energy Requirements Using 2030 kcal/Kg Calculation Used for Recommendations Kcal/kg Additional Notes Protein: 202g (up to 2.5 g/kg IBW 80.9 kg) Pay attention to renal issues Fluid: 1 ml/kcal or per MD Nutrition Intervention Change Diet Order: Restart TF when medically able Nutrition Support: Vital AF at 70ml/hr Flush 125 ml q2hr for hypernatremia Once resolved flush 100ml q4hr Kcal 2,016 Protein (gm) 126 Carbohydrates (gm) 150 Fluid (mL) 1,362 Goal #1 Meet at least 80% of kcal/ protein needs via TF Goal #2 TF tolerance Anticipated Discharge Needs: unable to determine at this time Follow-Up By: 11/05/19 Additional Comments FU TF restart and Na labs
[2019-11-03] MEDS: LISINOPRIL 20 MG TAB PO SCH (09:52)
[2019-11-03] MEDS: PANTOPRAZOLE 40 MG INJ IV SCH (09:52)
[2019-11-03] MEDS: AMIODARONE 200 MG TAB PO SCH (09:53)
[2019-11-03] MEDS: VANCOMYCIN 2,000 MG in SODIUM CHLORIDE 0.9% 500 ML 500 ML IV SCH (09:54)
[2019-11-03] MEDS: CITALOPRAM 20 MG TAB PO SCH (09:57)
[2019-11-03] MEDS: MICAFUNGIN 100 MG in SODIUM CHLORIDE 0.9% 100 ML IV SCH (10:50)
--- NOTE | 2019-11-03 12:15 | Progress Note ---
Assessment and Plan Cultures 10/10/2019 surgical culture: No growth at 72 hours 10/13/2019 tracheal aspirate culture: No growth 10/13/2019 peritoneal fluid: Enterococcus species (S to Penicillin, Vancomycin) 10/15/2019 blood culture: no growth 10/26/2019 urine culture: no growth thus far 10/26/2019 blood culture: no growth at 24 hours Assessment: 54 yo M PMhx CAD, COPD, recent complicated course of bowel perforation after a colonoscopy admitted with surgical site dehiscence of the fascia. Now with: # Acute sepsis - present with leukocytosis and tachycardia. Most likely secondary to fluid collection/abscess in the abdomen and anastomotic leak. # Low grade fevers: multiple possible causes. recent pneumothorax, also significant abdominal drain output. Appreciate General Surgery recs, currently planned for conservative management with ongoing drains. # Intra-abdominal infection from anastomotic leak - s/p ex lap with closure of abdominal wall and wound vac placement (10/05/2019); s/p Re-exploration, washout , transection of colon, Abthera placement - 10/13/2019. s/p re-exploration and colostomy creation on 10/16/2019, intra-operatively was found to have "Small amount of continued leak from the old anastomotic site. Some contamination still present. Bowel was all viable". Back on OR on 10/19/2019, findings "small leak from stump staple line". OR again on 10/22/2019 for: Abdominal washout. Closure of abdominal fascia. Wound vac placement. Findings, "contamination from the sigmoid stump closure site." # COPD, acute respiratory failure: s/p extubation. On high flow O2. # Penicillin allergy - likely not a true allergy, reviewed EMR for previous exposure to PCNs, patient received several days of Zosyn in 2018 without issue. Recs: - continue empiric Meropenem, Vancomycin and Micafungin - possibly discontinue Vancomycin soon since source is likely intra-abdominal - may be able to de-escalate Micafungin to Fluconazole Julianna Pineda MD, FACP [facility] ([facility] C: [phone] O: [phone] F: [phone] Subjective Date of service: 11/03/19 Principal diagnosis: acute renal failure Interval history: Low grade temperatures +. Remains on the vent. Ongoing output from his abdominal drains. Awake. Objective - Exam Narrative Exam: Physical Exam: Constitutional: awake, intubated, on the vent Head, Ears, Nose: Normocephalic, atraumatic. External ears, nose normal Eyes: Conjunctivae/corneas clear. No icterus. No ptosis. Neck: intubated Oral: intubated Cardiovascular: S1, S2 normal. Respiratory: clear b/l GI: Midline abdominal VAC. bowel sounds +, Colostomy +, multiple drains + with ongoing output Musculoskeletal: pedal edema + Skin: No rash or abscess Hem/Lymphatic: No palpable cervical or supraclavicular nodes. No lymphangitis Psych: no agitation Neurological: awake, alert, intubated - Constitutional Vitals: Vital Signs Temp Pulse Resp BP Pulse Ox 97.4 F L 75 24 122/52 95 11/03/19 08:00 11/03/19 11:00 11/03/19 11:00 11/03/19 11:00 11/03/19 11:00 Temperature -Last 24 Hours Temperature 97.4 F Temperature 98.8 F Temperature 98.5 F Temperature 100.9 F Temperature 100.8 F - Labs CBC & Chem 7: 11/03/19 03:42 11/03/19 03:42 Labs: Abnormal lab results 11/02/19 11/03/19 11/03/19 Range/Units 12:43 03:42 03:42 RBC 2.93 L (3.65-5.03) M/mm3 Hgb 8.5 L (11.8-15.2) gm/dl Hct 25.8 L (35.5-45.6) % RDW 16.9 H (13.2-15.2) % POC ABG pH (7.35-7.45) POC ABG pCO2 (35-45) POC ABG pO2 (80-105) Sodium 149 H D 147 H (137-145) mmol/L Potassium 3.5 L D (3.6-5.0) mmol/L Chloride 110.0 H 108.6 H (98-107) mmol/L BUN 23 H (9-20) mg/dL Creatinine 0.6 L 0.6 L (0.8-1.5) mg/dL Glucose 109 H (75-100) mg/dL POC Glucose (70-105) Calcium 8.1 L D 8.3 L (8.4-10.2) mg/dL Magnesium 2.40 H (1.7-2.3) mg/dL 11/03/19 11/03/19 11/03/19 Range/Units 04:13 04:28 12:04 RBC (3.65-5.03) M/mm3 Hgb (11.8-15.2) gm/dl Hct (35.5-45.6) % RDW (13.2-15.2) % POC ABG pH 7.540 H (7.35-7.45) POC ABG pCO2 45.4 H (35-45) POC ABG pO2 51 L (80-105) Sodium (137-145) mmol/L Potassium (3.6-5.0) mmol/L Chloride (98-107) mmol/L BUN (9-20) mg/dL Creatinine (0.8-1.5) mg/dL Glucose (75-100) mg/dL POC Glucose 109 H (70-105) Calcium (8.4-10.2) mg/dL Magnesium (1.7-2.3) mg/dL
[2019-11-03] MEDS: INSULIN LISPRO 100 UNIT/ML SUB-Q SCH ×4 (13:10→20:45)
[2019-11-03] MEDS: METOPROLOL TARTRATE 50 MG TAB PO SCH ×3 (13:35→21:22)
--- NOTE | 2019-11-03 13:43 | Progress Note ---
Assessment and Plan (1) Dehiscence of closure of fascia, superficial or muscular Current Visit: No Status: Acute Qualifiers: Encounter type: initial encounter Qualified Code(s): T81.32XA - Disruption of internal operation (surgical) wound, not elsewhere classified, initial encounter Plan to address problem: Pt stable. s/p ex lap with closure of abdominal wall and wound vac placement (10/05) - POD#26; s/p Re-exploration, washout, transection of colon, Abthera placement - 10/13 - POD#18; s/p abd washout, partial omentectomy, partial colectomy with colostomy - 10/16 POD#16. s/p abd washout, feeding tube placement, AbThera placement - 10/19 - POD#13; Abdominal washout and closure - 10/22 - POD#11 Patient appears stable. WBC normal. Spiking fevers. Rec: 1) Neuro - intubated. Awake on vent 2) CV - BP normal today 3) Resp - On vent. Small bore CT on left, currently on -[id number] suction via pleurevac. Mgmt per ICU team. 4) GI - Ostomy functioning Sump drains - Right drain was accidentally pulled out (10/30). Left one is still functioning. New small bore catheter placed 10/30 - moderate output, guardado brown in color - stool. Continue both to wall suction - continuous. Wound Vac - wound looked good on last check. continue wound vac. Ostomy - functioning now. G port of GJ tube- appearance looks more clear. Doubt output recorded in computer is correct. Will continue to LIWS for now 5) - BUN/Cr stable. Monitor Na 6) ID - Abx per ID. Enterococcus on cultures. If patient has worsening labs/carolin ls, then rescan and place additional drains as appropriate. 7) Nutrition - Tube feeds at goal. 8) DVT prophylaxis - SCDs. Lovenox 9) Family -no family at bedside. 10) PT - will need rehab. Note: Spoke with [facility] surgeon about possible transfer earlier this week. They reviewed the notes that were sent and we discussed the case. They felt that they had nothing else to offer. They agreed with our management. Also agreed that another exploration should not be done. If needed, additional drains can be placed. They did suggest putting a [place] tube in the rectum to decompress that area. (That was done this morning). This conversation was communicated to the . Please call with questions. Subjective Date of service: 11/03/19 Narrative: Pt seen and examined. No complaints, awake on vent. +fevers. Tolerating TF. Objective Vital Signs - 12hr 11/03/19 11/03/19 11/03/19 02:00 03:01 03:08 Temperature 98.8 F Pulse Rate 87 83 Pulse Rate [ Anterior Bilateral Throughout] Pulse Rate [ From Monitor] Respiratory 27 H 25 H Rate Respiratory Rate [Anterior Bilateral Throughout] Blood Pressure 175/70 151/63 O2 Sat by Pulse 95 96 Oximetry 11/03/19 11/03/19 11/03/19 04:00 04:01 04:02 Temperature Pulse Rate 81 81 81 Pulse Rate [ Anterior Bilateral Throughout] Pulse Rate [ 76 From Monitor] Respiratory 22 24 Rate Respiratory Rate [Anterior Bilateral Throughout] Blood Pressure 115/50 115/50 O2 Sat by Pulse 99 95 97 Oximetry 11/03/19 11/03/19 11/03/19 05:00 06:00 07:00 Temperature Pulse Rate 75 74 79 Pulse Rate [ Anterior Bilateral Throughout] Pulse Rate [ From Monitor] Respiratory 24 24 26 H Rate Respiratory Rate [Anterior Bilateral Throughout] Blood Pressure 107/50 113/50 153/65 O2 Sat by Pulse 97 97 94 Oximetry 11/03/19 11/03/19 11/03/19 07:15 08:00 09:00 Temperature 97.4 F L Pulse Rate 85 88 87 Pulse Rate [ 85 Anterior Bilateral Throughout] Pulse Rate [ 84 From Monitor] Respiratory 21 21 Rate Respiratory 27 H Rate [Anterior Bilateral Throughout] Blood Pressure 153/65 161/77 161/77 O2 Sat by Pulse 98 99 94 Oximetry 11/03/19 11/03/19 11/03/19 09:52 10:00 11:00 Temperature Pulse Rate 88 89 75 Pulse Rate [ Anterior Bilateral Throughout] Pulse Rate [ From Monitor] Respiratory 23 24 Rate Respiratory Rate [Anterior Bilateral Throughout] Blood Pressure 124/89 114/56 122/52 O2 Sat by Pulse 94 95 Oximetry 11/03/19 11/03/19 11/03/19 12:00 12:06 13:35 Temperature 98.6 F Pulse Rate 84 86 Pulse Rate [ Anterior Bilateral Throughout] Pulse Rate [ From Monitor] Respiratory Rate Respiratory Rate [Anterior Bilateral Throughout] Blood Pressure 139/41 162/69 O2 Sat by Pulse 97 Oximetry - General physical appearance Narrative Exam: Gen: Awake on vent. Appears restless but denies pain. ENT: ETT in place CV: S1, S2+ resp: on vent. L chest tube in place with inspiratory air leak. Abd: soft, NT, ND. GJ tube in place with bumper at 6cm. Gastric output is clear. J port with TF running. Wound vac in place with good seal and scant serous drainage. R sided dressings c/d/i. L sided drains connected to one canister with guardado, stool output. Ostomy pink with liquid brown stool in bag. Ext: + edema : de jesus with clear yellow urine - Labs 11/03/19 03:42 11/03/19 03:42 Diabetes panel 11/02/19 11/03/19 Range/Units 12:43 03:42 Sodium 149 H D 147 H (137-145) mmol/L Potassium 4.4 D 3.5 L D (3.6-5.0) mmol/L Chloride 110.0 H 108.6 H (98-107) mmol/L Carbon Dioxide 25 28 (22-30) mmol/L BUN 23 H 17 (9-20) mg/dL Creatinine 0.6 L 0.6 L (0.8-1.5) mg/dL Glucose 100 109 H (75-100) mg/dL Calcium 8.1 L D 8.3 L (8.4-10.2) mg/dL Calcium panel 11/02/19 11/03/19 Range/Units 12:43 03:42 Calcium 8.1 L D 8.3 L (8.4-10.2) mg/dL Phosphorus 2.70 (2.5-4.5) mg/dL Pituitary panel 11/02/19 11/03/19 Range/Units 12:43 03:42 Sodium 149 H D 147 H (137-145) mmol/L Potassium 4.4 D 3.5 L D (3.6-5.0) mmol/L Chloride 110.0 H 108.6 H (98-107) mmol/L Carbon Dioxide 25 28 (22-30) mmol/L BUN 23 H 17 (9-20) mg/dL Creatinine 0.6 L 0.6 L (0.8-1.5) mg/dL Glucose 100 109 H (75-100) mg/dL Calcium 8.1 L D 8.3 L (8.4-10.2) mg/dL Adrenal panel 11/02/19 11/03/19 Range/Units 12:43 03:42 Sodium 149 H D 147 H (137-145) mmol/L Potassium 4.4 D 3.5 L D (3.6-5.0) mmol/L Chloride 110.0 H 108.6 H (98-107) mmol/L Carbon Dioxide 25 28 (22-30) mmol/L BUN 23 H 17 (9-20) mg/dL Creatinine 0.6 L 0.6 L (0.8-1.5) mg/dL Glucose 100 109 H (75-100) mg/dL Calcium 8.1 L D 8.3 L (8.4-10.2) mg/dL
--- NOTE | 2019-11-03 14:53 | Progress Note ---
Assessment and Plan 54 y/o male with anastomic leak 11/03: Looks clinically better. Na was better on repeat labs. Spoke with and surgery to update them both. Most likely will attempt extubation in the am. Will hold feeds for about an hour in the morning prior to extubation then restart. 11/02: Repeat labs this am. Hard time believing that 2 liters of normal saline made his sodium increase that much. Also, once i discuss with surgery, may consider giving more blood. Will also hold tube feeds briefly as well. In case any procedures. Lovenox held last night. Continue vent support 11/01: Spoke with Dr. Krause this am and understand his concerns. Have started the transfer process. Most ICU's throughout the city are on diversion or full. [facility] has received his Facesheet and we are awaiting to hear back from them. CXR is clear. Minimal vent settings. Will continue supportive care for now. Follow up any new ID recs given increasing white and fever. 10/31: Will check CXR tomorrow. Continue chest tube to suction. Will likely stay in until extubated. Continue drains. Explained to staff to be extremely careful with these drains so that they do not come out. 10/30: Acute on chronic respiratory failure requiring reintubation. Appreciate Anesthesia assistance as he was a difficult intubation when we had to change his tube out about 1 week ago. Will continue on 100% until after Scans and then start to wean back down. CXR yesterday looked like pulmonary edema but improved today with positive pressure. Continue supportive care and await results of scans. 10/29: Discussed today on rounds. Patient had some issues over the weekend with the ICE chips and liquids. Will obtain speech consult/eval prior to restarting clears today. Spoke with nutrition and they will adjust tube feeds with new goal. Once at goal will start to taper off TPN. ordered Incentive madhu to bedside. Will also restart home dose of elaine today. pain control and drainage monitoring. Will continue ICU care. 10/26: Patient stable overall. Not ready for floor. Would be ok with step down if beds are needed. If spikes temp again will order blood cultures x2, urine culture, UA and repeat CXR. Gave an additional 40 of lasix this am. Will give more potassium replacement. Continue trickle feeds for now. Will continue PO meds and restart home dose of citalopram. Wean FiO2 and flow for sats >88%. Mildly hypertensive but this was secondary to agitation. Normalizing now. 10/25: Will extubate today. Will use HFNC if distress or hypoxemia is noted. Not a good candidate for bipap given his recent abdominal issues. Spoke with who is now at bedside and surgery. Will continue to attempt to achieve net negative state daily. Hold on further albumin administration. Hypernatremia is iatrogenic from lasix administration Worse case scenario, will re-intubate with anesthesia. 10/24: Responding well to lasix and protein therapy. Will give 2 more doses of lasix today. Consider one for tonight as well. Last albumin today at 1800. CXR is stable, still with layering bilateral pleural effusions. Will reassess again tomorrow. Reviewed all other education consultant notes. Spoke with sisters at bedside, updated and spoke with surgery. 10/23: Long discussion with surgery and via phone. Anasarca is likely from decreased oncotic pressure and immobility of several days now that abdomen is finally closed. Now fluid is essentially leaking into the interstitium now that the abdomen is shut and there is increased intra-abdominal pressure. Total Protein is 4.5 and albumin is 1.2. This is to be expected given current illness. Will attempt to increase oncotic pressure with 2 units of PRBC's and albumin infusions for the next 24 hours starting at midnight tonight. Will give lasix inbetween transfusions and then again tonight. CXR is consistent with pulmonary edema volume overload. Will continue vent for now and after significant volume removal then will attempt extubation. Discussed with and she understands. Will continue to monitor. Agree with trickle feeds and cards has switched amio over to PO to be given through the G-tube. If tolerates, hopeful to be rid of TPN soon as this is necessary but excessive volume as well. 10/22: Added diprovan as more sedation was needed. Hopefully once closed and no leaks, patient can be extubated. Cards very concerned about length of time for IV amio. Will discuss with surgery the time frame that gut can be used. 10/21: Will hold on weaning until abdomen is closed, especially knowing mental status is good. Will focus on pain control. Replace electrolytes. Appreciate Surgery recs and detail. Follow up any new recs from cards. Or tomorrow for closure CCT 31 minutes. Subjective Date of service: 11/03/19 Principal diagnosis: acute renal failure Interval history: No acute events. Looks clinically better today. Objective Vital Signs - 12hr 11/03/19 11/03/19 11/03/19 03:01 03:08 04:00 Temperature 98.8 F Pulse Rate 83 81 Pulse Rate [ Anterior Bilateral Throughout] Pulse Rate [ 76 From Monitor] Respiratory 25 H 22 Rate Respiratory Rate [Anterior Bilateral Throughout] Blood Pressure 151/63 O2 Sat by Pulse 96 99 Oximetry 11/03/19 11/03/19 11/03/19 04:01 04:02 05:00 Temperature Pulse Rate 81 81 75 Pulse Rate [ Anterior Bilateral Throughout] Pulse Rate [ From Monitor] Respiratory 24 24 Rate Respiratory Rate [Anterior Bilateral Throughout] Blood Pressure 115/50 115/50 107/50 O2 Sat by Pulse 95 97 97 Oximetry 11/03/19 11/03/19 11/03/19 06:00 07:00 07:15 Temperature Pulse Rate 74 79 85 Pulse Rate [ 85 Anterior Bilateral Throughout] Pulse Rate [ From Monitor] Respiratory 24 26 H Rate Respiratory 27 H Rate [Anterior Bilateral Throughout] Blood Pressure 113/50 153/65 153/65 O2 Sat by Pulse 97 94 98 Oximetry 11/03/19 11/03/19 11/03/19 08:00 09:00 09:52 Temperature 97.4 F L Pulse Rate 88 87 88 Pulse Rate [ Anterior Bilateral Throughout] Pulse Rate [ 84 From Monitor] Respiratory 21 21 Rate Respiratory Rate [Anterior Bilateral Throughout] Blood Pressure 161/77 161/77 124/89 O2 Sat by Pulse 99 94 Oximetry 11/03/19 11/03/19 11/03/19 10:00 11:00 12:00 Temperature 98.6 F Pulse Rate 89 75 Pulse Rate [ Anterior Bilateral Throughout] Pulse Rate [ From Monitor] Respiratory 23 24 Rate Respiratory Rate [Anterior Bilateral Throughout] Blood Pressure 114/56 122/52 O2 Sat by Pulse 94 95 Oximetry 11/03/19 11/03/19 11/03/19 12:06 13:35 13:45 Temperature Pulse Rate 84 86 Pulse Rate [ 81 Anterior Bilateral Throughout] Pulse Rate [ From Monitor] Respiratory Rate Respiratory 24 Rate [Anterior Bilateral Throughout] Blood Pressure 139/41 162/69 O2 Sat by Pulse 97 Oximetry Constitutional: alert, other (critically ill on HFNC) Eyes: non-icteric ENT: oropharynx moist Neck: supple Effort: mildly labored Ascultation: Bilateral: diminished breath sounds (bases) Cardiovascular: regular rate and rhythm (no mrg) Gastrointestinal: tender, other (obese, distended) Integumentary: normal Extremities: no cyanosis, pink and warm, edema (1+ bilateral LE edema) Neurologic: normal mental status, non-focal exam, pupils equal and round Psychiatric: mood appropriate, affect normal CBC and BMP: 11/03/19 03:42 11/03/19 03:42 ABG, PT/INR, D-dimer: ABG POC ABG pH 7.422 (7.35-7.45) 11/03/19 04:28 ABG pH 7.390 pH Units (7.350-7.450) 10/23/19 04:47 POC ABG pCO2 45.4 (35-45) H 11/03/19 04:28 ABG pCO2 48.4 mm Hg 10/23/19 04:47 POC ABG pO2 83 (80-105) 11/03/19 04:28 ABG pO2 68.9 mm Hg (80.0-90.0) L 10/23/19 04:47 POC ABG HCO3 29.6 (22-26 mml/L) 11/03/19 04:28 POC ABG Total CO2 31 (23-27mmol/L) 11/03/19 04:28 POC ABG O2 Sat 96 11/03/19 04:28 ABG O2 Saturation 96.6 % (95.0-99.0) 10/23/19 04:47 Abnormal lab findings: Abnormal Labs 10/06/19 10/06/19 10/07/19 05:36 05:36 05:54 WBC 21.8 H 21.5 H RBC 3.55 L Hgb 10.9 L Hct 32.7 L MCHC RDW Plt Count Lymph % (Auto) [place] % (Auto) Lymph # [place] # Seg Neutrophils % Seg Neuts % (Manual) 91.0 H Lymphocytes % (Manual) 2.0 L Seg Neutrophils # Seg Neutrophils # Man 19.8 H Lymphocytes # (Manual) 0.4 L Monocytes # (Manual) 1.1 H POC ABG pH ABG pH POC ABG pCO2 POC ABG pO2 ABG pO2 ABG HCO3 ABG Base Excess ABG Hemoglobin Oxyhemoglobin Sodium 135 L Potassium Chloride 95.9 L Carbon Dioxide BUN Creatinine 0.7 L Glucose POC Glucose Calcium Phosphorus Magnesium Direct Bilirubin AST Alkaline Phosphatase C-Reactive Protein Serum Total Protein Total Protein 5.7 L Albumin 2.5 L Prealbumin Iigcw-5-Oxukeqgtd Fmtsn-7-Tibcmvdvj Gamma Globulins PEP Interpretation Triglycerides Urine pH Urine Creatinine Urine Total Protein Vancomycin Trough Digoxin Crossmatch 10/07/19 10/09/19 10/09/19 05:54 10:52 10:52 WBC 16.6 H RBC Hgb Hct MCHC RDW Plt Count 498 H Lymph % (Auto) [place] % (Auto) Lymph # [place] # Seg Neutrophils % Seg Neuts % (Manual) 93.0 H Lymphocytes % (Manual) 5.0 L Seg Neutrophils # Seg Neutrophils # Man 15.4 H Lymphocytes # (Manual) 0.8 L Monocytes # (Manual) POC ABG pH ABG pH POC ABG pCO2 POC ABG pO2 ABG pO2 ABG HCO3 ABG Base Excess ABG Hemoglobin Oxyhemoglobin Sodium Potassium Chloride 97.9 L Carbon Dioxide 20 L D BUN 23 H Creatinine 1.7 H D Glucose 109 H POC Glucose Calcium 8.1 L Phosphorus Magnesium Direct Bilirubin AST Alkaline Phosphatase C-Reactive Protein Serum Total Protein Total Protein Albumin Prealbumin Rpzqu-8-Ikbkabxqo Hmguw-5-Xhhfiuwsi Gamma Globulins PEP Interpretation Triglycerides Urine pH Urine Creatinine Urine Total Protein Vancomycin Trough Digoxin Crossmatch 10/09/19 10/10/19 10/10/19 17:23 05:30 05:30 WBC 14.6 H RBC Hgb 11.1 L Hct 33.5 L MCHC RDW Plt Count 527 H Lymph % (Auto) [place] % (Auto) Lymph # [place] # Seg Neutrophils % Seg Neuts % (Manual) Lymphocytes % (Manual) Seg Neutrophils # Seg Neutrophils # Man Lymphocytes # (Manual) Monocytes # (Manual) POC ABG pH ABG pH POC ABG pCO2 POC ABG pO2 ABG pO2 ABG HCO3 ABG Base Excess ABG Hemoglobin Oxyhemoglobin Sodium 130 L D Potassium 5.1 H Chloride 90.0 L 91.0 L Carbon Dioxide 20 L 20 L BUN 27 H 35 H Creatinine 1.9 H 2.0 H Glucose 104 H POC Glucose Calcium Phosphorus Magnesium Direct Bilirubin AST Alkaline Phosphatase C-Reactive Protein Serum Total Protein Total Protein Albumin Prealbumin Rxejv-8-Kykuzrtam Nxomn-9-Ibjhrecmk Gamma Globulins PEP Interpretation Triglycerides Urine pH Urine Creatinine Urine Total Protein Vancomycin Trough Digoxin Crossmatch 10/10/19 10/10/19 10/11/19 08:33 08:44 05:41 WBC 13.2 H RBC Hgb 11.3 L Hct 33.8 L MCHC RDW 15.3 H Plt Count 543 H Lymph % (Auto) [place] % (Auto) Lymph # [place] # Seg Neutrophils % Seg Neuts % (Manual) Lymphocytes % (Manual) Seg Neutrophils # Seg Neutrophils # Man Lymphocytes # (Manual) Monocytes # (Manual) POC ABG pH ABG pH POC ABG pCO2 POC ABG pO2 ABG pO2 ABG HCO3 ABG Base Excess ABG Hemoglobin Oxyhemoglobin Sodium Potassium Chloride Carbon Dioxide BUN Creatinine Glucose 113 H POC Glucose 117 H Calcium Phosphorus Magnesium Direct Bilirubin AST Alkaline Phosphatase C-Reactive Protein Serum Total Protein Total Protein Albumin Prealbumin Lwuon-8-Xgjvyojtd Jinyt-9-Adbfyvtpu Gamma Globulins PEP Interpretation Triglycerides Urine pH Urine Creatinine Urine Total Protein Vancomycin Trough Digoxin Crossmatch 10/11/19 10/11/19 10/11/19 05:41 06:23 06:23 WBC RBC Hgb Hct MCHC RDW Plt Count Lymph % (Auto) [place] % (Auto) Lymph # [place] # Seg Neutrophils % Seg Neuts % (Manual) Lymphocytes % (Manual) Seg Neutrophils # Seg Neutrophils # Man Lymphocytes # (Manual) Monocytes # (Manual) POC ABG pH ABG pH POC ABG pCO2 POC ABG pO2 ABG pO2 ABG HCO3 ABG Base Excess ABG Hemoglobin Oxyhemoglobin Sodium 134 L Potassium Chloride 96.3 L Carbon Dioxide BUN 37 H Creatinine Glucose 58 L POC Glucose Calcium Phosphorus 4.90 H Magnesium Direct Bilirubin AST Alkaline Phosphatase C-Reactive Protein Serum Total Protein Total Protein Albumin Prealbumin Qjtki-0-Opfolrlpf Olmyh-8-Sbauxjpll Gamma Globulins PEP Interpretation Triglycerides Urine pH Urine Creatinine 118.2 H 116.8 H Urine Total Protein 105 H 104 H Vancomycin Trough Digoxin Crossmatch 10/11/19 10/12/19 10/12/19 09:00 06:09 06:09 WBC 13.8 H RBC 3.39 L Hgb 10.2 L Hct 30.9 L MCHC RDW 15.5 H Plt Count 459 H Lymph % (Auto) [place] % (Auto) Lymph # [place] # Seg Neutrophils % Seg Neuts % (Manual) Lymphocytes % (Manual) Seg Neutrophils # Seg Neutrophils # Man Lymphocytes # (Manual) Monocytes # (Manual) POC ABG pH ABG pH POC ABG pCO2 POC ABG pO2 ABG pO2 ABG HCO3 ABG Base Excess ABG Hemoglobin Oxyhemoglobin Sodium 131 L Potassium Chloride 96.2 L Carbon Dioxide 21 L BUN 43 H Creatinine Glucose 72 L POC Glucose Calcium Phosphorus Magnesium Direct Bilirubin AST Alkaline Phosphatase C-Reactive Protein Serum Total Protein 5.2 L Total Protein Albumin 1.9 L Prealbumin Qnggl-0-Sisjltvih 0.9 H Tmytz-4-Yfpuydvcg 1.0 H Gamma Globulins 0.7 L PEP Interpretation see below H Triglycerides Urine pH Urine Creatinine Urine Total Protein Vancomycin Trough Digoxin Crossmatch 10/12/19 10/12/19 10/12/19 08:20 09:30 09:30 WBC RBC Hgb Hct MCHC RDW Plt Count Lymph % (Auto) [place] % (Auto) Lymph # [place] # Seg Neutrophils % Seg Neuts % (Manual) Lymphocytes % (Manual) Seg Neutrophils # Seg Neutrophils # Man Lymphocytes # (Manual) Monocytes # (Manual) POC ABG pH ABG pH POC ABG pCO2 POC ABG pO2 63 L ABG pO2 ABG HCO3 ABG Base Excess ABG Hemoglobin Oxyhemoglobin Sodium Potassium Chloride Carbon Dioxide BUN Creatinine Glucose POC Glucose Calcium Phosphorus Magnesium 2.50 H Direct Bilirubin 0.3 H AST Alkaline Phosphatase C-Reactive Protein Serum Total Protein Total Protein 5.1 L Albumin 2.2 L Prealbumin Edqjm-7-Evbahdhpu Ifhzw-9-Bswxoctdq Gamma Globulins PEP Interpretation Triglycerides Urine pH Urine Creatinine Urine Total Protein Vancomycin Trough Digoxin Crossmatch 10/13/19 10/13/19 10/13/19 04:20 04:20 13:20 WBC 15.7 H RBC 3.64 L Hgb 10.9 L Hct 33.1 L MCHC RDW 15.8 H Plt Count 488 H Lymph % (Auto) [place] % (Auto) Lymph # [place] # Seg Neutrophils % Seg Neuts % (Manual) Lymphocytes % (Manual) Seg Neutrophils # Seg Neutrophils # Man Lymphocytes # (Manual) Monocytes # (Manual) POC ABG pH ABG pH POC ABG pCO2 POC ABG pO2 ABG pO2 ABG HCO3 ABG Base Excess ABG Hemoglobin Oxyhemoglobin Sodium Potassium Chloride Carbon Dioxide BUN 28 H Creatinine Glucose POC Glucose Calcium Phosphorus Magnesium Direct Bilirubin AST Alkaline Phosphatase C-Reactive Protein Serum Total Protein Total Protein Albumin Prealbumin Olftm-4-Mwhhkswfh Skueq-1-Jsgnmbjso Gamma Globulins PEP Interpretation Triglycerides Urine pH Urine Creatinine Urine Total Protein Vancomycin Trough Digoxin Crossmatch See Detail 10/13/19 10/13/19 10/14/19 18:24 20:05 04:47 WBC 24.2 H RBC Hgb 10.9 L Hct 34.2 L MCHC RDW 17.0 H Plt Count 442 H Lymph % (Auto) [place] % (Auto) Lymph # [place] # Seg Neutrophils % Seg Neuts % (Manual) Lymphocytes % (Manual) Seg Neutrophils # Seg Neutrophils # Man Lymphocytes # (Manual) Monocytes # (Manual) POC ABG pH ABG pH 7.180 L* 7.278 L POC ABG pCO2 POC ABG pO2 ABG pO2 130.7 H ABG HCO3 ABG Base Excess -6.5 L -6.5 L ABG Hemoglobin 12.2 L 12.3 L Oxyhemoglobin 92.9 L Sodium Potassium Chloride Carbon Dioxide BUN Creatinine Glucose POC Glucose Calcium Phosphorus Magnesium Direct Bilirubin AST Alkaline Phosphatase C-Reactive Protein Serum Total Protein Total Protein Albumin Prealbumin Qbfbf-8-Jpdgjxwsk Tzwct-3-Tmsyakhqm Gamma Globulins PEP Interpretation Triglycerides Urine pH Urine Creatinine Urine Total Protein Vancomycin Trough Digoxin Crossmatch 10/14/19 10/14/19 10/14/19 04:47 05:40 10:14 WBC RBC Hgb Hct MCHC RDW Plt Count Lymph % (Auto) [place] % (Auto) Lymph # [place] # Seg Neutrophils % Seg Neuts % (Manual) Lymphocytes % (Manual) Seg Neutrophils # Seg Neutrophils # Man Lymphocytes # (Manual) Monocytes # (Manual) POC ABG pH ABG pH POC ABG pCO2 POC ABG pO2 ABG pO2 76.3 L ABG HCO3 19.1 L ABG Base Excess -5.8 L ABG Hemoglobin 10.9 L Oxyhemoglobin 93.4 L Sodium Potassium 5.1 H D Chloride 109.2 H Carbon Dioxide 17 L BUN 38 H Creatinine 1.8 H D Glucose 104 H POC Glucose Calcium 7.4 L Phosphorus 5.60 H Magnesium Direct Bilirubin AST Alkaline Phosphatase C-Reactive Protein Serum Total Protein Total Protein Albumin Prealbumin Eudwa-7-Sfqbjtswp Ybpna-5-Bdtugfeyv Gamma Globulins PEP Interpretation Triglycerides Urine pH Urine Creatinine Urine Total Protein Vancomycin Trough Digoxin Crossmatch 10/14/19 10/15/1910/15/19 23:46 04:32 04:32 WBC 15.5 H RBC 2.89 L Hgb 8.8 L Hct 27.3 L D MCHC RDW 16.6 H Plt Count Lymph % (Auto) [place] % (Auto) Lymph # [place] # Seg Neutrophils % Seg Neuts % (Manual) Lymphocytes % (Manual) Seg Neutrophils # Seg Neutrophils # Man Lymphocytes # (Manual) Monocytes # (Manual) POC ABG pH ABG pH POC ABG pCO2 POC ABG pO2 ABG pO2 ABG HCO3 ABG Base Excess ABG Hemoglobin Oxyhemoglobin Sodium 147 H Potassium Chloride 114.0 H Carbon Dioxide 19 L BUN 42 H Creatinine Glucose 112 H POC Glucose 113 H Calcium 7.3 L Phosphorus Magnesium Direct Bilirubin AST 72 H Alkaline Phosphatase C-Reactive Protein 30.60 H Serum Total Protein Total Protein 4.0 L D Albumin 1.7 L Prealbumin 0.030 L Ewzpc-8-Brxemvogi Jeyte-9-Nagglwtba Gamma Globulins PEP Interpretation Triglycerides Urine pH Urine Creatinine Urine Total Protein Vancomycin Trough Digoxin Crossmatch 10/15/19 10/15/19 10/15/19 05:30 12:08 17:23 WBC RBC Hgb Hct MCHC RDW Plt Count Lymph % (Auto) [place] % (Auto) Lymph # [place] # Seg Neutrophils % Seg Neuts % (Manual) Lymphocytes % (Manual) Seg Neutrophils # Seg Neutrophils # Man Lymphocytes # (Manual) Monocytes # (Manual) POC ABG pH ABG pH 7.296 L POC ABG pCO2 POC ABG pO2 ABG pO2 114.7 H ABG HCO3 ABG Base Excess -3.7 L ABG Hemoglobin 8.9 L Oxyhemoglobin Sodium Potassium Chloride Carbon Dioxide BUN Creatinine Glucose POC Glucose 106 H 106 H Calcium Phosphorus Magnesium Direct Bilirubin AST Alkaline Phosphatase C-Reactive Protein Serum Total Protein Total Protein Albumin Prealbumin Utdle-4-Pireuiihy Hccel-8-Zoenhvnzk Gamma Globulins PEP Interpretation Triglycerides Urine pH Urine Creatinine Urine Total Protein Vancomycin Trough Digoxin Crossmatch 10/16/19 10/16/19 10/16/19 00:07 04:44 05:24 WBC RBC Hgb Hct MCHC RDW Plt Count Lymph % (Auto) [place] % (Auto) Lymph # [place] # Seg Neutrophils % Seg Neuts % (Manual) Lymphocytes % (Manual) Seg Neutrophils # Seg Neutrophils # Man Lymphocytes # (Manual) Monocytes # (Manual) POC ABG pH ABG pH POC ABG pCO2 POC ABG pO2 ABG pO2 ABG HCO3 ABG Base Excess ABG Hemoglobin Oxyhemoglobin Sodium 150 H Potassium Chloride 115.8 H Carbon Dioxide BUN 35 H Creatinine Glucose 129 H POC Glucose 119 H 129 H Calcium 7.3 L Phosphorus 1.80 L D Magnesium Direct Bilirubin AST Alkaline Phosphatase C-Reactive Protein Serum Total Protein Total Protein Albumin Prealbumin Ivsrv-4-Ksfkhbyxi Drhcz-9-Cfwbsoilq Gamma Globulins PEP Interpretation Triglycerides Urine pH Urine Creatinine Urine Total Protein Vancomycin Trough Digoxin Crossmatch 10/16/19 10/16/19 10/16/19 06:53 09:20 11:58 WBC 14.6 H RBC 2.70 L Hgb 8.1 L Hct 25.2 L MCHC RDW 16.7 H Plt Count Lymph % (Auto) [place] % (Auto) Lymph # [place] # Seg Neutrophils % Seg Neuts % (Manual) 79.0 H Lymphocytes % (Manual) 4.0 L Seg Neutrophils # Seg Neutrophils # Man 11.5 H Lymphocytes # (Manual) 0.6 L Monocytes # (Manual) POC ABG pH ABG pH POC ABG pCO2 47.0 H POC ABG pO2 ABG pO2 ABG HCO3 ABG Base Excess ABG Hemoglobin Oxyhemoglobin Sodium Potassium Chloride Carbon Dioxide BUN Creatinine Glucose POC Glucose Calcium Phosphorus Magnesium Direct Bilirubin AST Alkaline Phosphatase C-Reactive Protein Serum Total Protein Total Protein Albumin Prealbumin Vbeeo-3-Eutljwflt Stiey-8-Mjtsqmznp Gamma Globulins PEP Interpretation Triglycerides Urine pH Urine Creatinine Urine Total Protein Vancomycin Trough Digoxin Crossmatch See Detail 10/16/19 10/16/19 10/16/19 15:23 17:50 23:58 WBC RBC Hgb Hct MCHC RDW Plt Count Lymph % (Auto) [place] % (Auto) Lymph # [place] # Seg Neutrophils % Seg Neuts % (Manual) Lymphocytes % (Manual) Seg Neutrophils # Seg Neutrophils # Man Lymphocytes # (Manual) Monocytes # (Manual) POC ABG pH ABG pH POC ABG pCO2 POC ABG pO2 ABG pO2 ABG HCO3 ABG Base Excess ABG Hemoglobin Oxyhemoglobin Sodium Potassium Chloride Carbon Dioxide BUN Creatinine Glucose POC Glucose 221 H 201 H 179 H Calcium Phosphorus Magnesium Direct Bilirubin AST Alkaline Phosphatase C-Reactive Protein Serum Total Protein Total Protein Albumin Prealbumin Ztxij-3-Xlnbsvjrk Xkeov-8-Vvsjavwnx Gamma Globulins PEP Interpretation Triglycerides Urine pH Urine Creatinine Urine Total Protein Vancomycin Trough Digoxin Crossmatch 10/17/19 10/17/19 10/17/19 04:08 04:08 05:41 WBC 22.3 H RBC 3.35 L Hgb 10.0 L Hct 31.2 L D MCHC RDW 16.1 H Plt Count Lymph % (Auto) [place] % (Auto) Lymph # [place] # Seg Neutrophils % Seg Neuts % (Manual) Lymphocytes % (Manual) Seg Neutrophils # Seg Neutrophils # Man Lymphocytes # (Manual) Monocytes # (Manual) POC ABG pH 7.310 L ABG pH POC ABG pCO2 52.8 H POC ABG pO2 70 L ABG pO2 ABG HCO3 ABG Base Excess ABG Hemoglobin Oxyhemoglobin Sodium 147 H Potassium Chloride 114.9 H Carbon Dioxide BUN 36 H Creatinine Glucose 165 H POC Glucose Calcium 6.9 L Phosphorus 2.20 L D Magnesium Direct Bilirubin AST Alkaline Phosphatase C-Reactive Protein Serum Total Protein Total Protein Albumin Prealbumin Luqlc-2-Rmazcxwoh Edwqz-0-Tkkaskojy Gamma Globulins PEP Interpretation Triglycerides Urine pH Urine Creatinine Urine Total Protein Vancomycin Trough Digoxin Crossmatch 10/17/19 10/17/19 10/17/19 05:42 11:33 18:17 WBC RBC Hgb Hct MCHC RDW Plt Count Lymph % (Auto) [place] % (Auto) Lymph # [place] # Seg Neutrophils % Seg Neuts % (Manual) Lymphocytes % (Manual) Seg Neutrophils # Seg Neutrophils # Man Lymphocytes # (Manual) Monocytes # (Manual) POC ABG pH ABG pH POC ABG pCO2 POC ABG pO2 ABG pO2 ABG HCO3 ABG Base Excess ABG Hemoglobin Oxyhemoglobin Sodium Potassium Chloride Carbon Dioxide BUN Creatinine Glucose POC Glucose 149 H 154 H 163 H Calcium Phosphorus Magnesium Direct Bilirubin AST Alkaline Phosphatase C-Reactive Protein Serum Total Protein Total Protein Albumin Prealbumin Ftagk-2-Rqwlaufqw Sqchh-5-Sivyhomps Gamma Globulins PEP Interpretation Triglycerides Urine pH Urine Creatinine Urine Total Protein Vancomycin Trough Digoxin Crossmatch 10/17/19 10/18/19 10/18/19 23:34 03:29 04:50 WBC RBC Hgb Hct MCHC RDW Plt Count Lymph % (Auto) [place] % (Auto) Lymph # [place] # Seg Neutrophils % Seg Neuts % (Manual) Lymphocytes % (Manual) Seg Neutrophils # Seg Neutrophils # Man Lymphocytes # (Manual) Monocytes # (Manual) POC ABG pH ABG pH POC ABG pCO2 POC ABG pO2 ABG pO2 78.8 L ABG HCO3 ABG Base Excess ABG Hemoglobin 8.8 L Oxyhemoglobin Sodium Potassium Chloride 111.8 H Carbon Dioxide BUN 27 H Creatinine 0.6 L Glucose 140 H POC Glucose 135 H Calcium 7.1 L Phosphorus 1.80 L Magnesium Direct Bilirubin AST Alkaline Phosphatase C-Reactive Protein Serum Total Protein Total Protein Albumin Prealbumin Jvbpu-4-Lwknfinej Hzxxf-6-Hwvugzdpn Gamma Globulins PEP Interpretation Triglycerides Urine pH Urine Creatinine Urine Total Protein Vancomycin Trough Digoxin Crossmatch 10/18/19 10/18/19 10/18/19 05:45 11:19 18:26 WBC RBC Hgb Hct MCHC RDW Plt Count Lymph % (Auto) [place] % (Auto) Lymph # [place] # Seg Neutrophils % Seg Neuts % (Manual) Lymphocytes % (Manual) Seg Neutrophils # Seg Neutrophils # Man Lymphocytes # (Manual) Monocytes # (Manual) POC ABG pH ABG pH POC ABG pCO2 POC ABG pO2 ABG pO2 ABG HCO3 ABG Base Excess ABG Hemoglobin Oxyhemoglobin Sodium Potassium Chloride Carbon Dioxide BUN Creatinine Glucose POC Glucose 145 H 152 H 125 H Calcium Phosphorus Magnesium Direct Bilirubin AST Alkaline Phosphatase C-Reactive Protein Serum Total Protein Total Protein Albumin Prealbumin Ikjrl-1-Bwvnkdrgk Fqjzk-1-Hrqvernqx Gamma Globulins PEP Interpretation Triglycerides Urine pH Urine Creatinine Urine Total Protein Vancomycin Trough Digoxin Crossmatch 10/18/19 10/19/19 10/19/19 23:27 04:21 04:21 WBC RBC Hgb Hct MCHC RDW Plt Count Lymph % (Auto) [place] % (Auto) Lymph # [place] # Seg Neutrophils % Seg Neuts % (Manual) Lymphocytes % (Manual) Seg Neutrophils # Seg Neutrophils # Man Lymphocytes # (Manual) Monocytes # (Manual) POC ABG pH ABG pH POC ABG pCO2 POC ABG pO2 ABG pO2 ABG HCO3 ABG Base Excess ABG Hemoglobin Oxyhemoglobin Sodium Potassium Chloride 108.4 H Carbon Dioxide BUN 22 H Creatinine 0.5 L Glucose 123 H POC Glucose 127 H Calcium 7.4 L Phosphorus 1.80 L Magnesium Direct Bilirubin AST Alkaline Phosphatase C-Reactive Protein Serum Total Protein Total Protein Albumin Prealbumin Iycqd-3-Tvkkrwvyo Uvcto-9-Otwlgpnas Gamma Globulins PEP Interpretation Triglycerides Urine pH Urine Creatinine Urine Total Protein Vancomycin Trough Digoxin 0.7 L Crossmatch 10/19/19 10/19/19 10/19/19 05:00 05:35 11:26 WBC RBC Hgb Hct MCHC RDW Plt Count Lymph % (Auto) [place] % (Auto) Lymph # [place] # Seg Neutrophils % Seg Neuts % (Manual) Lymphocytes % (Manual) Seg Neutrophils # Seg Neutrophils # Man Lymphocytes # (Manual) Monocytes # (Manual) POC ABG pH ABG pH 7.456 H POC ABG pCO2 POC ABG pO2 ABG pO2 78.8 L ABG HCO3 ABG Base Excess ABG Hemoglobin 5.6 L Oxyhemoglobin Sodium Potassium Chloride Carbon Dioxide BUN Creatinine Glucose POC Glucose 124 H 111 H Calcium Phosphorus Magnesium Direct Bilirubin AST Alkaline Phosphatase C-Reactive Protein Serum Total Protein Total Protein Albumin Prealbumin Cnwpq-2-Kixwskmuy Wknhv-1-Qarrvoguk Gamma Globulins PEP Interpretation Triglycerides Urine pH Urine Creatinine Urine Total Protein Vancomycin Trough Digoxin Crossmatch 10/19/19 10/20/19 10/20/19 23:23 04:50 05:17 WBC RBC Hgb Hct MCHC RDW Plt Count Lymph % (Auto) [place] % (Auto) Lymph # [place] # Seg Neutrophils % Seg Neuts % (Manual) Lymphocytes % (Manual) Seg Neutrophils # Seg Neutrophils # Man Lymphocytes # (Manual) Monocytes # (Manual) POC ABG pH ABG pH POC ABG pCO2 POC ABG pO2 ABG pO2 ABG HCO3 ABG Base Excess ABG Hemoglobin Oxyhemoglobin Sodium Potassium Chloride 108.1 H Carbon Dioxide BUN Creatinine 0.4 L Glucose 134 H POC Glucose 129 H 123 H Calcium 7.1 L Phosphorus Magnesium Direct Bilirubin AST Alkaline Phosphatase C-Reactive Protein Serum Total Protein Total Protein Albumin Prealbumin Xrvci-2-Avmghdfge Vjuol-3-Gdkputrjc Gamma Globulins PEP Interpretation Triglycerides Urine pH Urine Creatinine Urine Total Protein Vancomycin Trough Digoxin Crossmatch 10/20/19 10/20/19 10/21/19 11:40 19:06 05:08 WBC RBC Hgb Hct MCHC RDW Plt Count Lymph % (Auto) [place] % (Auto) Lymph # [place] # Seg Neutrophils % Seg Neuts % (Manual) Lymphocytes % (Manual) Seg Neutrophils # Seg Neutrophils # Man Lymphocytes # (Manual) Monocytes # (Manual) POC ABG pH ABG pH POC ABG pCO2 POC ABG pO2 ABG pO2 ABG HCO3 ABG Base Excess ABG Hemoglobin Oxyhemoglobin Sodium Potassium Chloride Carbon Dioxide BUN Creatinine Glucose POC Glucose 139 H 117 H 131 H Calcium Phosphorus Magnesium Direct Bilirubin AST Alkaline Phosphatase C-Reactive Protein Serum Total Protein Total Protein Albumin Prealbumin Hgogb-6-Yexprwtzf Rrvgo-8-Yxnxwnmdm Gamma Globulins PEP Interpretation Triglycerides Urine pH Urine Creatinine Urine Total Protein Vancomycin Trough Digoxin Crossmatch 10/21/19 10/21/19 10/21/19 05:30 12:04 17:31 WBC RBC Hgb Hct MCHC RDW Plt Count Lymph % (Auto) [place] % (Auto) Lymph # [place] # Seg Neutrophils % Seg Neuts % (Manual) Lymphocytes % (Manual) Seg Neutrophils # Seg Neutrophils # Man Lymphocytes # (Manual) Monocytes # (Manual) POC ABG pH ABG pH POC ABG pCO2 POC ABG pO2 ABG pO2 ABG HCO3 ABG Base Excess ABG Hemoglobin Oxyhemoglobin Sodium Potassium Chloride 107.8 H Carbon Dioxide BUN Creatinine 0.5 L Glucose 119 H POC Glucose 119 H 110 H Calcium 7.6 L Phosphorus Magnesium Direct Bilirubin AST Alkaline Phosphatase C-Reactive Protein Serum Total Protein Total Protein Albumin Prealbumin Ccwvi-7-Oujzlalhw Sutln-6-Kylyxqkkx Gamma Globulins PEP Interpretation Triglycerides Urine pH Urine Creatinine Urine Total Protein Vancomycin Trough Digoxin Crossmatch 10/22/19 10/22/19 10/22/19 05:14 05:37 12:07 WBC RBC Hgb Hct MCHC RDW Plt Count Lymph % (Auto) [place] % (Auto) Lymph # [place] # Seg Neutrophils % Seg Neuts % (Manual) Lymphocytes % (Manual) Seg Neutrophils # Seg Neutrophils # Man Lymphocytes # (Manual) Monocytes # (Manual) POC ABG pH ABG pH POC ABG pCO2 POC ABG pO2 ABG pO2 ABG HCO3 ABG Base Excess ABG Hemoglobin Oxyhemoglobin Sodium Potassium Chloride Carbon Dioxide BUN Creatinine 0.5 L Glucose 116 H POC Glucose 110 H 126 H Calcium 7.7 L Phosphorus Magnesium Direct Bilirubin AST Alkaline Phosphatase C-Reactive Protein Serum Total Protein Total Protein Albumin Prealbumin Ajtip-4-Chkfrxfea Fkffd-6-Yldwtizpz Gamma Globulins PEP Interpretation Triglycerides Urine pH Urine Creatinine Urine Total Protein Vancomycin Trough Digoxin Crossmatch 10/22/19 10/22/19 10/23/19 18:36 23:19 04:39 WBC RBC Hgb Hct MCHC RDW Plt Count Lymph % (Auto) [place] % (Auto) Lymph # [place] # Seg Neutrophils % Seg Neuts % (Manual) Lymphocytes % (Manual) Seg Neutrophils # Seg Neutrophils # Man Lymphocytes # (Manual) Monocytes # (Manual) POC ABG pH ABG pH POC ABG pCO2 POC ABG pO2 ABG pO2 ABG HCO3 ABG Base Excess ABG Hemoglobin Oxyhemoglobin Sodium Potassium Chloride Carbon Dioxide BUN Creatinine Glucose POC Glucose 120 H 127 H 112 H Calcium Phosphorus Magnesium Direct Bilirubin AST Alkaline Phosphatase C-Reactive Protein Serum Total Protein Total Protein Albumin Prealbumin Opizl-1-Lbosbnkqr Flpja-0-Ffgsyaife Gamma Globulins PEP Interpretation Triglycerides Urine pH Urine Creatinine Urine Total Protein Vancomycin Trough Digoxin Crossmatch 10/23/19 10/23/19 10/23/19 04:47 05:15 10:44 WBC 18.3 H RBC 2.33 L Hgb 7.0 L Hct 21.5 L MCHC RDW 16.2 H Plt Count Lymph % (Auto) 4.9 L [place] % (Auto) 8.1 H Lymph # 0.9 L [place] # 1.5 H Seg Neutrophils % 86.7 H Seg Neuts % (Manual) Lymphocytes % (Manual) Seg Neutrophils # 15.9 H Seg Neutrophils # Man Lymphocytes # (Manual) Monocytes # (Manual) POC ABG pH ABG pH POC ABG pCO2 POC ABG pO2 ABG pO2 68.9 L ABG HCO3 28.7 H ABG Base Excess 3.4 H ABG Hemoglobin 6.6 L Oxyhemoglobin 94.1 L Sodium Potassium Chloride Carbon Dioxide BUN Creatinine 0.5 L Glucose 165 H POC Glucose Calcium 7.4 L Phosphorus Magnesium Direct Bilirubin AST Alkaline Phosphatase C-Reactive Protein Serum Total Protein Total Protein Albumin Prealbumin Yhcup-1-Njpajnvbd Xzimk-9-Naseukpde Gamma Globulins PEP Interpretation Triglycerides Urine pH Urine Creatinine Urine Total Protein Vancomycin Trough Digoxin Crossmatch 10/23/19 10/23/19 10/23/19 10:44 11:46 11:50 WBC RBC Hgb Hct MCHC RDW Plt Count Lymph % (Auto) [place] % (Auto) Lymph # [place] # Seg Neutrophils % Seg Neuts % (Manual) Lymphocytes % (Manual) Seg Neutrophils # Seg Neutrophils # Man Lymphocytes # (Manual) Monocytes # (Manual) POC ABG pH ABG pH POC ABG pCO2 POC ABG pO2 ABG pO2 ABG HCO3 ABG Base Excess ABG Hemoglobin Oxyhemoglobin Sodium Potassium Chloride Carbon Dioxide BUN Creatinine Glucose POC Glucose 138 H Calcium Phosphorus Magnesium Direct Bilirubin 0.7 H AST Alkaline Phosphatase C-Reactive Protein Serum Total Protein Total Protein 4.5 L Albumin 1.2 L Prealbumin Dvrrh-9-Hhhvianku Kvznl-8-Uwashiwmk Gamma Globulins PEP Interpretation Triglycerides Urine pH Urine Creatinine Urine Total Protein Vancomycin Trough Digoxin Crossmatch See Detail 10/23/19 10/24/19 10/24/19 17:53 00:07 05:05 WBC RBC Hgb Hct MCHC RDW Plt Count Lymph % (Auto) [place] % (Auto) Lymph # [place] # Seg Neutrophils % Seg Neuts % (Manual) Lymphocytes % (Manual) Seg Neutrophils # Seg Neutrophils # Man Lymphocytes # (Manual) Monocytes # (Manual) POC ABG pH ABG pH POC ABG pCO2 POC ABG pO2 ABG pO2 ABG HCO3 ABG Base Excess ABG Hemoglobin Oxyhemoglobin Sodium Potassium 3.5 L Chloride Carbon Dioxide BUN Creatinine 0.5 L Glucose 116 H POC Glucose 137 H 110 H Calcium 8.0 L Phosphorus Magnesium Direct Bilirubin AST Alkaline Phosphatase C-Reactive Protein Serum Total Protein Total Protein Albumin Prealbumin Hhkpd-9-Umnspostg Ghajx-7-Gljiwttyg Gamma Globulins PEP Interpretation Triglycerides Urine pH Urine Creatinine Urine Total Protein Vancomycin Trough Digoxin Crossmatch 10/24/19 10/24/19 10/24/19 05:05 11:56 13:00 WBC 13.0 H RBC 2.73 L Hgb 8.0 L Hct 24.2 L MCHC RDW 17.9 H Plt Count Lymph % (Auto) 7.0 L [place] % (Auto) 9.5 H Lymph # 0.9 L [place] # 1.2 H Seg Neutrophils % 82.7 H Seg Neuts % (Manual) Lymphocytes % (Manual) Seg Neutrophils # 10.7 H Seg Neutrophils # Man Lymphocytes # (Manual) Monocytes # (Manual) POC ABG pH ABG pH POC ABG pCO2 POC ABG pO2 ABG pO2 ABG HCO3 ABG Base Excess ABG Hemoglobin Oxyhemoglobin Sodium Potassium Chloride Carbon Dioxide BUN Creatinine Glucose POC Glucose 159 H Calcium Phosphorus Magnesium Direct Bilirubin AST Alkaline Phosphatase C-Reactive Protein Serum Total Protein Total Protein Albumin Prealbumin Qdusy-1-Ydqmnkznw Libhr-9-Cdmjhmobh Gamma Globulins PEP Interpretation Triglycerides 216 H Urine pH Urine Creatinine Urine Total Protein Vancomycin Trough Digoxin Crossmatch 10/24/19 10/24/19 10/25/19 17:42 23:45 04:19 WBC RBC Hgb Hct MCHC RDW Plt Count Lymph % (Auto) [place] % (Auto) Lymph # [place] # Seg Neutrophils % Seg Neuts % (Manual) Lymphocytes % (Manual) Seg Neutrophils # Seg Neutrophils # Man Lymphocytes # (Manual) Monocytes # (Manual) POC ABG pH ABG pH POC ABG pCO2 POC ABG pO2 ABG pO2 ABG HCO3 ABG Base Excess ABG Hemoglobin Oxyhemoglobin Sodium 147 H Potassium Chloride Carbon Dioxide 33 H BUN Creatinine 0.5 L Glucose 111 H POC Glucose 120 H 116 H Calcium Phosphorus Magnesium Direct Bilirubin AST Alkaline Phosphatase C-Reactive Protein Serum Total Protein Total Protein 5.7 L D Albumin 2.5 L Prealbumin Xumgq-6-Jbklxcmwu Mvwax-2-Mrwpfiyas Gamma Globulins PEP Interpretation Triglycerides 230 H Urine pH Urine Creatinine Urine Total Protein Vancomycin Trough Digoxin Crossmatch 10/25/19 10/25/19 10/25/19 04:19 05:31 12:20 WBC RBC 2.69 L Hgb 8.1 L Hct 23.9 L MCHC RDW 17.3 H Plt Count Lymph % (Auto) [place] % (Auto) Lymph # [place] # Seg Neutrophils % Seg Neuts % (Manual) Lymphocytes % (Manual) Seg Neutrophils # Seg Neutrophils # Man Lymphocytes # (Manual) Monocytes # (Manual) POC ABG pH ABG pH POC ABG pCO2 POC ABG pO2 ABG pO2 ABG HCO3 ABG Base Excess ABG Hemoglobin Oxyhemoglobin Sodium Potassium Chloride Carbon Dioxide BUN Creatinine Glucose POC Glucose 126 H 114 H Calcium Phosphorus Magnesium Direct Bilirubin AST Alkaline Phosphatase C-Reactive Protein Serum Total Protein Total Protein Albumin Prealbumin Ndsay-1-Zrbjvspds Nwjer-1-Sreoflqef Gamma Globulins PEP Interpretation Triglycerides Urine pH Urine Creatinine Urine Total Protein Vancomycin Trough Digoxin Crossmatch 10/25/19 10/25/19 10/26/19 18:30 23:09 06:15 WBC RBC Hgb Hct MCHC RDW Plt Count Lymph % (Auto) [place] % (Auto) Lymph # [place] # Seg Neutrophils % Seg Neuts % (Manual) Lymphocytes % (Manual) Seg Neutrophils # Seg Neutrophils # Man Lymphocytes # (Manual) Monocytes # (Manual) POC ABG pH ABG pH POC ABG pCO2 POC ABG pO2 ABG pO2 ABG HCO3 ABG Base Excess ABG Hemoglobin Oxyhemoglobin Sodium Potassium 3.5 L Chloride Carbon Dioxide BUN Creatinine 0.5 L Glucose 112 H POC Glucose 121 H 107 H Calcium 8.3 L Phosphorus Magnesium Direct Bilirubin AST Alkaline Phosphatase 148 H C-Reactive Protein Serum Total Protein Total Protein 5.9 L Albumin 2.4 L Prealbumin Ccxsx-2-Cfcragcyv Uwfwx-8-Kbunbfivp Gamma Globulins PEP Interpretation Triglycerides Urine pH Urine Creatinine Urine Total Protein Vancomycin Trough Digoxin Crossmatch 10/26/19 10/26/19 10/26/19 06:15 12:21 17:35 WBC RBC Hgb Hct MCHC RDW Plt Count Lymph % (Auto) [place] % (Auto) Lymph # [place] # Seg Neutrophils % Seg Neuts % (Manual) Lymphocytes % (Manual) Seg Neutrophils # Seg Neutrophils # Man Lymphocytes # (Manual) Monocytes # (Manual) POC ABG pH ABG pH POC ABG pCO2 POC ABG pO2 ABG pO2 ABG HCO3 ABG Base Excess ABG Hemoglobin Oxyhemoglobin Sodium Potassium Chloride Carbon Dioxide BUN Creatinine Glucose POC Glucose 134 H 141 H Calcium Phosphorus Magnesium Direct Bilirubin AST Alkaline Phosphatase C-Reactive Protein Serum Total Protein Total Protein Albumin Prealbumin Buabl-6-Etwtkcyel Xtvwr-0-Vmnrnmjee Gamma Globulins PEP Interpretation Triglycerides 185 H Urine pH Urine Creatinine Urine Total Protein Vancomycin Trough Digoxin Crossmatch 10/26/19 10/27/19 10/27/19 Unknown 04:30 11:33 WBC RBC Hgb Hct MCHC RDW Plt Count Lymph % (Auto) [place] % (Auto) Lymph # [place] # Seg Neutrophils % Seg Neuts % (Manual) Lymphocytes % (Manual) Seg Neutrophils # Seg Neutrophils # Man Lymphocytes # (Manual) Monocytes # (Manual) POC ABG pH ABG pH POC ABG pCO2 POC ABG pO2 ABG pO2 ABG HCO3 ABG Base Excess ABG Hemoglobin Oxyhemoglobin Sodium Potassium 3.2 L Chloride Carbon Dioxide BUN 23 H Creatinine 0.6 L Glucose 130 H POC Glucose 131 H Calcium 7.9 L Phosphorus Magnesium Direct Bilirubin AST Alkaline Phosphatase C-Reactive Protein Serum Total Protein Total Protein Albumin Prealbumin Nlatj-3-Zbznyhtnd Nkoko-1-Qmztopiek Gamma Globulins PEP Interpretation Triglycerides Urine pH 9.0 H Urine Creatinine Urine Total Protein Vancomycin Trough Digoxin Crossmatch 10/27/19 10/28/19 10/28/19 17:45 05:25 05:49 WBC RBC 2.85 L Hgb 8.3 L Hct 26.8 L MCHC 31 L RDW 17.4 H Plt Count Lymph % (Auto) 8.9 L [place] % (Auto) 14.3 H Lymph # 0.8 L [place] # 1.3 H Seg Neutrophils % 76.5 H Seg Neuts % (Manual) Lymphocytes % (Manual) Seg Neutrophils # Seg Neutrophils # Man Lymphocytes # (Manual) Monocytes # (Manual) POC ABG pH ABG pH POC ABG pCO2 POC ABG pO2 ABG pO2 ABG HCO3 ABG Base Excess ABG Hemoglobin Oxyhemoglobin Sodium Potassium Chloride Carbon Dioxide BUN Creatinine Glucose POC Glucose 121 H 120 H Calcium Phosphorus Magnesium Direct Bilirubin AST Alkaline Phosphatase C-Reactive Protein Serum Total Protein Total Protein Albumin Prealbumin Bsaya-6-Octwgiczw Lpkvi-9-Omisxhecz Gamma Globulins PEP Interpretation Triglycerides Urine pH Urine Creatinine Urine Total Protein Vancomycin Trough Digoxin Crossmatch 10/28/19 10/28/19 10/28/19 07:19 12:07 18:21 WBC RBC Hgb Hct MCHC RDW Plt Count Lymph % (Auto) [place] % (Auto) Lymph # [place] # Seg Neutrophils % Seg Neuts % (Manual) Lymphocytes % (Manual) Seg Neutrophils # Seg Neutrophils # Man Lymphocytes # (Manual) Monocytes # (Manual) POC ABG pH ABG pH POC ABG pCO2 POC ABG pO2 ABG pO2 ABG HCO3 ABG Base Excess ABG Hemoglobin Oxyhemoglobin Sodium Potassium Chloride Carbon Dioxide BUN 23 H Creatinine 0.5 L Glucose 129 H POC Glucose 127 H 130 H Calcium 8.0 L Phosphorus Magnesium Direct Bilirubin AST Alkaline Phosphatase C-Reactive Protein Serum Total Protein Total Protein Albumin Prealbumin Tfkei-2-Swsysgmrj Bjhfa-8-Ppxgluxek Gamma Globulins PEP Interpretation Triglycerides Urine pH Urine Creatinine Urine Total Protein Vancomycin Trough Digoxin Crossmatch 10/28/19 10/29/19 10/29/19 23:30 05:30 05:30 WBC 11.2 H RBC 3.36 L Hgb 9.7 L Hct 29.4 L MCHC RDW 16.7 H Plt Count Lymph % (Auto) [place] % (Auto) 16.0 H Lymph # [place] # 1.8 H Seg Neutrophils % 70.2 H Seg Neuts % (Manual) Lymphocytes % (Manual) Seg Neutrophils # 7.9 H Seg Neutrophils # Man Lymphocytes # (Manual) Monocytes # (Manual) POC ABG pH ABG pH POC ABG pCO2 POC ABG pO2 ABG pO2 ABG HCO3 ABG Base Excess ABG Hemoglobin Oxyhemoglobin Sodium Potassium Chloride Carbon Dioxide BUN 23 H Creatinine 0.5 L Glucose POC Glucose 130 H Calcium 8.3 L Phosphorus Magnesium Direct Bilirubin AST Alkaline Phosphatase C-Reactive Protein Serum Total Protein Total Protein Albumin Prealbumin Attzc-0-Vpfffiuuc Tbzgm-6-Ptannutqy Gamma Globulins PEP Interpretation Triglycerides Urine pH Urine Creatinine Urine Total Protein Vancomycin Trough Digoxin Crossmatch 10/29/19 10/29/19 10/29/19 05:52 13:10 18:02 WBC RBC Hgb Hct MCHC RDW Plt Count Lymph % (Auto) [place] % (Auto) Lymph # [place] # Seg Neutrophils % Seg Neuts % (Manual) Lymphocytes % (Manual) Seg Neutrophils # Seg Neutrophils # Man Lymphocytes # (Manual) Monocytes # (Manual) POC ABG pH ABG pH POC ABG pCO2 POC ABG pO2 ABG pO2 ABG HCO3 ABG Base Excess ABG Hemoglobin Oxyhemoglobin Sodium Potassium Chloride Carbon Dioxide BUN Creatinine Glucose POC Glucose 111 H 140 H 140 H Calcium Phosphorus Magnesium Direct Bilirubin AST Alkaline Phosphatase C-Reactive Protein Serum Total Protein Total Protein Albumin Prealbumin Mckzl-3-Clmwsumdu Ikaum-5-Esscvkrhi Gamma Globulins PEP Interpretation Triglycerides Urine pH Urine Creatinine Urine Total Protein Vancomycin Trough Digoxin Crossmatch 10/29/19 10/30/19 10/30/19 23:58 01:05 05:15 WBC RBC Hgb Hct MCHC RDW Plt Count Lymph % (Auto) [place] % (Auto) Lymph # [place] # Seg Neutrophils % Seg Neuts % (Manual) Lymphocytes % (Manual) Seg Neutrophils # Seg Neutrophils # Man Lymphocytes # (Manual) Monocytes # (Manual) POC ABG pH ABG pH POC ABG pCO2 62.0 H POC ABG pO2 168 H ABG pO2 ABG HCO3 ABG Base Excess ABG Hemoglobin Oxyhemoglobin Sodium 147 H Potassium Chloride 107.8 H Carbon Dioxide BUN 26 H Creatinine 0.5 L Glucose 139 H POC Glucose 161 H Calcium Phosphorus Magnesium 2.40 H Direct Bilirubin AST Alkaline Phosphatase C-Reactive Protein Serum Total Protein Total Protein Albumin Prealbumin Uvndm-1-Kcvzdetxx Hsocl-9-Ttpugkfdc Gamma Globulins PEP Interpretation Triglycerides Urine pH Urine Creatinine Urine Total Protein Vancomycin Trough Digoxin Crossmatch 10/30/19 10/30/19 10/30/19 05:15 06:32 09:44 WBC 13.8 H RBC 3.59 L Hgb 10.1 L Hct 32.4 L MCHC 31 L RDW 17.4 H Plt Count Lymph % (Auto) 11.2 L [place] % (Auto) 13.6 H Lymph # [place] # 1.9 H Seg Neutrophils % 75.1 H Seg Neuts % (Manual) Lymphocytes % (Manual) Seg Neutrophils # 10.4 H Seg Neutrophils # Man Lymphocytes # (Manual) Monocytes # (Manual) POC ABG pH ABG pH POC ABG pCO2 51.7 H POC ABG pO2 111 H ABG pO2 ABG HCO3 ABG Base Excess ABG Hemoglobin Oxyhemoglobin Sodium Potassium Chloride Carbon Dioxide BUN Creatinine Glucose POC Glucose 141 H Calcium Phosphorus Magnesium Direct Bilirubin AST Alkaline Phosphatase C-Reactive Protein Serum Total Protein Total Protein Albumin Prealbumin Ddmla-9-Deowfpydq Wtszp-0-Osvjojhdm Gamma Globulins PEP Interpretation Triglycerides Urine pH Urine Creatinine Urine Total Protein Vancomycin Trough Digoxin Crossmatch 10/30/19 10/31/19 10/31/19 18:10 04:18 04:18 WBC 11.7 H RBC 3.11 L Hgb 9.0 L Hct 27.9 L MCHC RDW 17.1 H Plt Count Lymph % (Auto) [place] % (Auto) Lymph # [place] # Seg Neutrophils % Seg Neuts % (Manual) Lymphocytes % (Manual) Seg Neutrophils # Seg Neutrophils # Man Lymphocytes # (Manual) Monocytes # (Manual) POC ABG pH ABG pH POC ABG pCO2 POC ABG pO2 ABG pO2 ABG HCO3 ABG Base Excess ABG Hemoglobin Oxyhemoglobin Sodium 148 H Potassium Chloride 108.7 H Carbon Dioxide BUN 37 H Creatinine 0.7 L Glucose 102 H POC Glucose 131 H Calcium Phosphorus Magnesium Direct Bilirubin AST Alkaline Phosphatase C-Reactive Protein Serum Total Protein Total Protein Albumin Prealbumin Nqpvr-3-Xuyarrbpn Qrhpa-0-Zqstgdzne Gamma Globulins PEP Interpretation Triglycerides Urine pH Urine Creatinine Urine Total Protein Vancomycin Trough Digoxin Crossmatch 10/31/19 10/31/19 10/31/19 11:32 12:55 18:10 WBC RBC Hgb Hct MCHC RDW Plt Count Lymph % (Auto) [place] % (Auto) Lymph # [place] # Seg Neutrophils % Seg Neuts % (Manual) Lymphocytes % (Manual) Seg Neutrophils # Seg Neutrophils # Man Lymphocytes # (Manual) Monocytes # (Manual) POC ABG pH ABG pH POC ABG pCO2 57.9 H POC ABG pO2 135 H ABG pO2 ABG HCO3 ABG Base Excess ABG Hemoglobin Oxyhemoglobin Sodium Potassium Chloride Carbon Dioxide BUN Creatinine Glucose POC Glucose 120 H Calcium Phosphorus Magnesium Direct Bilirubin AST Alkaline Phosphatase C-Reactive Protein Serum Total Protein Total Protein Albumin Prealbumin Awhet-7-Fzbnqjlhf Sgrpf-9-Zlbndtlob Gamma Globulins PEP Interpretation Triglycerides Urine pH Urine Creatinine Urine Total Protein Vancomycin Trough 41.7 H Digoxin Crossmatch 10/31/19 11/01/19 11/01/19 23:08 05:30 05:30 WBC 14.6 H RBC 3.13 L Hgb 8.9 L Hct 27.7 L MCHC RDW 17.0 H Plt Count Lymph % (Auto) [place] % (Auto) Lymph # [place] # Seg Neutrophils % Seg Neuts % (Manual) Lymphocytes % (Manual) Seg Neutrophils # Seg Neutrophils # Man Lymphocytes # (Manual) Monocytes # (Manual) POC ABG pH ABG pH POC ABG pCO2 POC ABG pO2 ABG pO2 ABG HCO3 ABG Base Excess ABG Hemoglobin Oxyhemoglobin Sodium 149 H Potassium Chloride 109.0 H Carbon Dioxide BUN 26 H Creatinine 0.7 L Glucose 129 H POC Glucose 109 H Calcium Phosphorus Magnesium Direct Bilirubin AST Alkaline Phosphatase C-Reactive Protein Serum Total Protein Total Protein Albumin Prealbumin Sfccv-8-Jgoycrknm Pyveq-0-Aigqdqxhf Gamma Globulins PEP Interpretation Triglycerides Urine pH Urine Creatinine Urine Total Protein Vancomycin Trough Digoxin Crossmatch 11/01/19 11/01/19 11/01/19 06:09 06:10 11:52 WBC RBC Hgb Hct MCHC RDW Plt Count Lymph % (Auto) [place] % (Auto) Lymph # [place] # Seg Neutrophils % Seg Neuts % (Manual) Lymphocytes % (Manual) Seg Neutrophils # Seg Neutrophils # Man Lymphocytes # (Manual) Monocytes # (Manual) POC ABG pH ABG pH POC ABG pCO2 51.3 H POC ABG pO2 71 L ABG pO2 ABG HCO3 ABG Base Excess ABG Hemoglobin Oxyhemoglobin Sodium Potassium Chloride Carbon Dioxide BUN Creatinine Glucose POC Glucose 113 H 106 H Calcium Phosphorus Magnesium Direct Bilirubin AST Alkaline Phosphatase C-Reactive Protein Serum Total Protein Total Protein Albumin Prealbumin Tcjtn-7-Fijbmxflu Nitxk-5-Rynxatxce Gamma Globulins PEP Interpretation Triglycerides Urine pH Urine Creatinine Urine Total Protein Vancomycin Trough Digoxin Crossmatch 11/01/19 11/02/19 11/02/19 18:18 03:40 03:40 WBC RBC 2.36 L Hgb 7.2 L Hct 20.8 L D MCHC 35 H RDW 16.8 H Plt Count Lymph % (Auto) [place] % (Auto) Lymph # [place] # Seg Neutrophils % Seg Neuts % (Manual) Lymphocytes % (Manual) Seg Neutrophils # Seg Neutrophils # Man Lymphocytes # (Manual) Monocytes # (Manual) POC ABG pH ABG pH POC ABG pCO2 POC ABG pO2 ABG pO2 ABG HCO3 ABG Base Excess ABG Hemoglobin Oxyhemoglobin Sodium 157 H D Potassium 3.0 L D Chloride 117.2 H Carbon Dioxide BUN 23 H Creatinine 0.6 L Glucose 101 H POC Glucose 120 H Calcium 6.4 L D Phosphorus Magnesium Direct Bilirubin AST Alkaline Phosphatase C-Reactive Protein Serum Total Protein Total Protein Albumin Prealbumin Rsxxt-6-Eiyrexxnv Iwnbo-4-Ejnpjhdeb Gamma Globulins PEP Interpretation Triglycerides Urine pH Urine Creatinine Urine Total Protein Vancomycin Trough Digoxin Crossmatch 11/02/19 11/02/19 11/02/19 04:48 05:30 12:43 WBC RBC Hgb Hct MCHC RDW Plt Count Lymph % (Auto) [place] % (Auto) Lymph # [place] # Seg Neutrophils % Seg Neuts % (Manual) Lymphocytes % (Manual) Seg Neutrophils # Seg Neutrophils # Man Lymphocytes # (Manual) Monocytes # (Manual) POC ABG pH ABG pH POC ABG pCO2 50.1 H POC ABG pO2 74 L ABG pO2 ABG HCO3 ABG Base Excess ABG Hemoglobin Oxyhemoglobin Sodium 149 H D Potassium Chloride 110.0 H Carbon Dioxide BUN 23 H Creatinine 0.6 L Glucose POC Glucose 109 H Calcium 8.1 L D Phosphorus Magnesium 2.40 H Direct Bilirubin AST Alkaline Phosphatase C-Reactive Protein Serum Total Protein Total Protein Albumin Prealbumin Iaqki-5-Tawoqlpua [place]aax[place]-2-Uemvmnkyo Gamma Globulins PEP Interpretation Triglycerides Urine pH Urine Creatinine Urine Total Protein Vancomycin Trough Digoxin Crossmatch 11/03/19 11/03/19 11/03/19 03:42 03:42 04:13 WBC RBC 2.93 L Hgb 8.5 L Hct 25.8 L MCHC RDW 16.9 H Plt Count Lymph % (Auto) [place] % (Auto) Lymph # [place] # Seg Neutrophils % Seg Neuts % (Manual) Lymphocytes % (Manual) Seg Neutrophils # Seg Neutrophils # Man Lymphocytes # (Manual) Monocytes # (Manual) POC ABG pH 7.540 H ABG pH POC ABG pCO2 POC ABG pO2 51 L ABG pO2 ABG HCO3 ABG Base Excess ABG Hemoglobin Oxyhemoglobin Sodium 147 H Potassium 3.5 L D Chloride 108.6 H Carbon Dioxide BUN Creatinine 0.6 L Glucose 109 H POC Glucose Calcium 8.3 L Phosphorus Magnesium Direct Bilirubin AST Alkaline Phosphatase C-Reactive Protein Serum Total Protein Total Protein Albumin Prealbumin Hhixx-1-Nbjbocqrn [place]-9-Rkgqtatae Gamma Globulins PEP Interpretation Triglycerides Urine pH Urine Creatinine Urine Total Protein Vancomycin Trough Digoxin Crossmatch 11/03/19 11/03/19 04:28 12:04 WBC RBC Hgb Hct MCHC RDW Plt Count Lymph % (Auto) [place] % (Auto) Lymph # [place] # Seg Neutrophils % Seg Neuts % (Manual) Lymphocytes % (Manual) Seg Neutrophils # Seg Neutrophils # Man Lymphocytes # (Manual) Monocytes # (Manual) POC ABG pH ABG pH POC ABG pCO2 45.4 H POC ABG pO2 ABG pO2 ABG HCO3 ABG Base Excess ABG Hemoglobin Oxyhemoglobin Sodium Potassium Chloride Carbon Dioxide BUN Creatinine Glucose POC Glucose 109 H Calcium Phosphorus Magnesium Direct Bilirubin AST Alkaline Phosphatase C-Reactive Protein Serum Total Protein Total Protein Albumin Prealbumin Hzlbb-[id number] Wviwo-1-Yektvttvj Gamma Globulins PEP Interpretation Triglycerides Urine pH Urine Creatinine Urine Total Protein Vancomycin Trough Digoxin Crossmatch
[2019-11-03] MEDS: DEXTROSE 5% IN WATER 1,000 ML IV SCH (16:03)
[2019-11-03] MEDS: HALOPERIDOL LACTATE 5 MG/1 ML INJ IV PRN (21:22)
[2019-11-04] MEDS: MEROPENEM/NS 1 GRAM/100 ML 1 GRAM/100 ML BAG IV SCH ×3 (03:00→18:54)
[2019-11-04] MEDS: IPRATROPIUM/ALBUTEROL SULFATE 3 ML AMPUL.NEB IH SCH ×4 (04:01→20:25)
[2019-11-04 05:28] LABS: Hematocrit 25.5 % (35.5-45.6); Hemoglobin 8.6 gm/dl (11.8-15.2); Mean Corpuscular HGB Conc 34 % (32-34); Mean Corpuscular Volume 86 fl (84-94); Platelet Count 378 K/mm3 (140-440); Red Blood Count 2.96 M/mm3 (3.65-5.03); Red Cell Distribution Width 16.7 % (13.2-15.2)
[2019-11-04 05:49] LABS: BUN/Creatinine Ratio 28; Blood Urea Nitrogen 14 mg/dL (9-20); Calcium 8.1 mg/dL (8.4-10.2); Hemolysis Index 0
[2019-11-04] MEDS: METOPROLOL TARTRATE 50 MG TAB PO SCH ×3 (06:31→21:00)
[2019-11-04] MEDS: INSULIN LISPRO 100 UNIT/ML SUB-Q SCH ×4 (06:31→18:52)
[2019-11-04] MEDS: ARFORMOTEROL 15 MCG/2 ML NEBU IH SCH ×2 (07:07→20:25)
[2019-11-04] MEDS: BUDESONIDE 0.5 MG/2 ML NEBU IH SCH ×2 (07:07→20:25)
--- NOTE | 2019-11-04 09:00 | Progress Note ---
Assessment and Plan Assessment and plan: Sepsis, recurrent. Patient with new fevers that have been persistent. ID restarted antibiotics. Etiology likely secondary to fluid collection/abscess in the abdomen and anastomotic leak. Follow-up blood culture, fungal blood culture, UA, urine culture, CXR ordered. Whitfield was removed and urinalysis sent. Given recent prolonged exposure to abx and TPN, at risk of MDR infections, ID started empiric Meropenem and Micafungin Dehiscence of closure of fascia * Went to OR for ex lap with closure of abdominal wall and wound vac placement (10/05) * Continued to decline with possible Air vs fluid, 10/10/19 IR went in and placed two drains, Noted to have possible fecal material * Returned to the OR 10/13/19 due to concern for intra-abdominal infection and was found to have with heavy contamination of abdomen patent had disruption of bowel anastomosis, abdominal washout, abthera placement and colon stapled transection and left bowel enterotomy from anastomosis completely open * Returned to OR on 10/16/19 for abdominal washout, Partial Omentectomy, Partial Colectomy, Colostomy Creation and AbThera Placement * Abdominal washout and closure - 10/22 * cont wound care * * Acute Respiratory failure with hypoxia -Extubated 10/25/19 - Re-intubated 10/30 -Patient pulled out ET tube overnight, now on Oxygen by AR -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 On Merrem, Mifungin ID Physician following right sump drain fell out Surgeon following Left pneumothorax s/p chest tube placed 10/30 Left lower lobe pneumonia -Continue IV antibiotic -CTA chest showed left lower lobe consolidation with pleural effusion GUILLERMO on CKD -due to ATN due to sepsis -Improving, will monitor -SPEP and UPEP pending -No hydronephrosis on CT -Whitfield in place, monitor I/O's Severe Metabolic acidosis -Improved Acute Toxic Metabolic Encephalopathy/Delirium Tremens -Started on CIWA protocol due to hx of ETOH abuse, 6packs a day -Head CT scan negative for acute findings Acute blood loss anemia -H/H stable -Continue to monitor H&H and transfuse for hb<7 SVT, Atrial fib/flutter with RVR -treated with adenosine x1 -off amiodarone and cardizem drip. On oral amiodarone and IV Lopressor. -HR currently controlled -Cardiology following Hypotension -Off esmolol drip -s/p IV fluid boluses, BP stable Hypophosphatemia -will monitor level Hypernatremia start D5W Hypokalemia Replace iv Hx of Hypertension -Stable Hyperlipidemia -stable Atypical chest pain -probably secondary to pneumonitis -troponin levels neg Hx of RI/CAD -s/p PCI of the circumflex and second vessel POBA of the distal LAD occlusion. Left ventricle fraction of 45-50%. Morbid obesity with BMI of 43.4 -Lifestyle modification recommended COPD -Stable -cont neb tx Moderate Protein calorie malnutrition secondary to surgery -On TPN -Nutrition following Tobacco abuse -Cessation recommended Morbid obesity with BMI of 43.4 -Lifestyle modification recommended DVT and GI ppx: Lovenox/PPI Disp: Prognosis guarded The high probability of a clinically significant, sudden or life threatening deterioration of the [respiratory] system(s) required my full and direct attention, intervention and personal management. The aggregate critical care time was [32] minutes. This time is in addition to time spent performing reported procedures but includes the following: [x] Data Review and interpretation [x] Patient assessment and monitoring of vital signs [x] Documentation [x] Medication orders and management History Interval history: Re-intubated 10/30 patient pulled out ET tube overnight, now on Oxygen by AR Still having fevers Hospitalist Physical - Physical exam Narrative exam: Gen: Not in acute distress, On Oxygen by AR HEENT: Normocephalic, atraumatic Neck: supple, no JVD Heart: S1 and S2 reg, no murmurs, rubs or gallop Lungs: Chest tube on left, Abd: soft, NT, ostomy, wound vac, left drain Ext: No edema, no clubbing no cyanosis Neuro: lethargic, opens eyes, follows commands - Constitutional Vitals: Temp Pulse Resp BP Pulse Ox 99.6 F 84 35 H 156/78 91 11/04/19 03:31 11/04/19 08:30 11/04/19 08:30 11/04/19 08:30 11/04/19 08:30 General appearance: Present: no acute distress, obese Results - Labs CBC & Chem 7: 11/04/19 05:00 11/04/19 05:00 Labs: Laboratory Last Values WBC 10.3 K/mm3 (4.5-11.0) 11/04/19 05:00 RBC 2.96 M/mm3 (3.65-5.03) L 11/04/19 05:00 Hgb 8.6 gm/dl (11.8-15.2) L 11/04/19 05:00 Hct 25.5 % (35.5-45.6) L 11/04/19 05:00 MCV 86 fl (84-94) 11/04/19 05:00 MCH 29 pg (28-32) 11/04/19 05:00 MCHC 34 % (32-34) 11/04/19 05:00 RDW 16.7 % (13.2-15.2) H 11/04/19 05:00 Plt Count 378 K/mm3 (140-440) 11/04/19 05:00 Lymph % (Auto) 11.2 % (13.4-35.0) L 10/30/19 05:15 Cassia % (Auto) 13.6 % (0.0-7.3) H 10/30/19 05:15 Eos % (Auto) 0.0 % (0.0-4.3) 10/30/19 05:15 Baso % (Auto) 0.1 % (0.0-1.8) 10/30/19 05:15 Lymph # 1.5 K/mm3 (1.2-5.4) 10/30/19 05:15 Cassia # 1.9 K/mm3 (0.0-0.8) H 10/30/19 05:15 Eos # 0.0 K/mm3 (0.0-0.4) 10/30/19 05:15 Baso # 0.0 K/mm3 (0.0-0.1) 10/30/19 05:15 Add Manual Diff Complete 10/16/19 09:20 Total Counted 100 10/16/19 09:20 Seg Neutrophils % 75.1 % (40.0-70.0) H 10/30/19 05:15 Seg Neuts % (Manual) 79.0 % (40.0-70.0) H 10/16/19 09:20 Band Neutrophils % 12.0 % 10/16/19 09:20 Lymphocytes % (Manual) 4.0 % (13.4-35.0) L 10/16/19 09:20 Reactive Lymphs % (Man) 0 % 10/16/19 09:20 Monocytes % (Manual) 2.0 % (0.0-7.3) 10/16/19 09:20 Eosinophils % (Manual) 0 % (0.0-4.3) 10/16/19 09:20 Basophils % (Manual) 0 % (0.0-1.8) 10/16/19 09:20 Metamyelocytes % 2.0 % 10/16/19 09:20 Myelocytes % 1.0 % 10/16/19 09:20 Promyelocytes % 0 % 10/16/19 09:20 Blast Cells % 0 % 10/16/19 09:20 Nucleated RBC % Not Reportable 10/16/19 09:20 Seg Neutrophils # 10.4 K/mm3 (1.8-7.7) H 10/30/19 05:15 Seg Neutrophils # Man 11.5 K/mm3 (1.8-7.7) H 10/16/19 09:20 Band Neutrophils # 1.8 K/mm3 10/16/19 09:20 Lymphocytes # (Manual) 0.6 K/mm3 (1.2-5.4) L 10/16/19 09:20 Abs React Lymphs (Man) 0.0 K/mm3 10/16/19 09:20 Monocytes # (Manual) 0.3 K/mm3 (0.0-0.8) 10/16/19 09:20 Eosinophils # (Manual) 0.0 K/mm3 (0.0-0.4) 10/16/19 09:20 Basophils # (Manual) 0.0 K/mm3 (0.0-0.1) 10/16/19 09:20 Metamyelocytes # 0.3 K/mm3 10/16/19 09:20 Myelocytes # 0.1 K/mm3 10/16/19 09:20 Promyelocytes # 0.0 K/mm3 10/16/19 09:20 Blast Cells # 0.0 K/mm3 10/16/19 09:20 WBC Morphology Not Reportable 10/16/19 09:20 Hypersegmented Neuts Not Reportable 10/16/19 09:20 Hyposegmented Neuts Not Reportable 10/16/19 09:20 Hypogranular Neuts Not Reportable 10/16/19 09:20 Smudge Cells Not Reportable 10/16/19 09:20 Toxic Granulation Not Reportable 10/16/19 09:20 Toxic Vacuolation Not Reportable 10/16/19 09:20 Dohle Bodies Not Reportable 10/16/19 09:20 Pelger-Huet Anomaly Not Reportable 10/16/19 09:20 Andres Rods Not Reportable 10/16/19 09:20 Platelet Estimate Consistent w auto 10/16/19 09:20 Clumped Platelets Not Reportable 10/16/19 09:20 Plt Clumps, EDTA Not Reportable 10/16/19 09:20 Large Platelets Not Reportable 10/16/19 09:20 Giant Platelets Not Reportable 10/16/19 09:20 Platelet Satelliting Not Reportable 10/16/19 09:20 Plt Morphology Comment Not Reportable 10/16/19 09:20 RBC Morphology Not Reportable 10/16/19 09:20 Dimorphic RBCs Not Reportable 10/16/19 09:20 Polychromasia Few 10/16/19 09:20 Hypochromasia Few 10/16/19 09:20 Poikilocytosis Not Reportable 10/16/19 09:20 Anisocytosis Not Reportable 10/16/19 09:20 Microcytosis Not Reportable 10/16/19 09:20 Macrocytosis Not Reportable 10/16/19 09:20 Spherocytes Not Reportable 10/16/19 09:20 Pappenheimer Bodies Not Reportable 10/16/19 09:20 Sickle Cells Not Reportable 10/16/19 09:20 Target Cells Few 10/16/19 09:20 Tear Drop Cells Not Reportable 10/16/19 09:20 Ovalocytes Not Reportable 10/16/19 09:20 Helmet Cells Not Reportable 10/16/19 09:20 Varghese-Villanova Bodies Not Reportable 10/16/19 09:20 [place] Rings Not Reportable 10/16/19 09:20 Bishnu Cells Not Reportable 10/16/19 09:20 Bite Cells Not Reportable 10/16/19 09:20 Crenated Cell Not Reportable 10/16/19 09:20 Elliptocytes Not Reportable 10/16/19 09:20 Acanthocytes (Spur) Not Reportable 10/16/19 09:20 Rouleaux Not Reportable 10/16/19 09:20 Hemoglobin C Crystals Not Reportable 10/16/19 09:20 Schistocytes Not Reportable 10/16/19 09:20 Malaria parasites Not Reportable 10/16/19 09:20 Toni Bodies Not Reportable 10/16/19 09:20 Hem Pathologist Commnt No 10/16/19 09:20 POC ABG pH 7.422 (7.35-7.45) 11/03/19 04:28 ABG pH 7.390 pH Units (7.350-7.450) 10/23/19 04:47 POC ABG pCO2 45.4 (35-45) H 11/03/19 04:28 ABG pCO2 48.4 mm Hg 10/23/19 04:47 POC ABG pO2 83 (80-105) 11/03/19 04:28 ABG pO2 68.9 mm Hg (80.0-90.0) L 10/23/19 04:47 POC ABG HCO3 29.6 (22-26 mml/L) 11/03/19 04:28 ABG HCO3 28.7 mmol/L (20.0-26.0) H 10/23/19 04:47 POC ABG Total CO2 31 (23-27mmol/L) 11/03/19 04:28 POC ABG O2 Sat 96 11/03/19 04:28 ABG O2 Saturation 96.6 % (95.0-99.0) 10/23/19 04:47 ABG O2 Content 8.8 (0.0-44) 10/23/19 04:47 POC ABG Base Excess 5 ((-2) - (+3)mmol/L) 11/03/19 04:28 ABG Base Excess 3.4 mmol/L (-2.0-3.0) H 10/23/19 04:47 ABG Hemoglobin 6.6 gm/dl (14.0-18.0) L 10/23/19 04:47 ABG Carboxyhemoglobin 2.1 % (0.0-5.0) 10/23/19 04:47 ABG Methemoglobin 0.5 % (0.0-1.5) 10/23/19 04:47 Oxyhemoglobin 94.1 % (95.0-99.0) L 10/23/19 04:47 FiO2 40 % 11/03/19 04:28 Sodium 143 mmol/L (137-145) 11/04/19 05:00 Potassium 3.5 mmol/L (3.6-5.0) L 11/04/19 05:00 Chloride 104.7 mmol/L (98-107) 11/04/19 05:00 Carbon Dioxide 27 mmol/L (22-30) 11/04/19 05:00 Anion Gap 15 mmol/L 11/04/19 05:00 BUN 14 mg/dL (9-20) 11/04/19 05:00 Creatinine 0.5 mg/dL (0.8-1.5) L 11/04/19 05:00 Estimated GFR > 60 ml/min 11/04/19 05:00 BUN/Creatinine Ratio 28 % 11/04/19 05:00 Glucose 111 mg/dL (75-100) H 11/04/19 05:00 POC Glucose 106 (70-105) H 11/04/19 05:19 Hemoglobin A1c 5.7 % (4-6) 10/06/19 05:36 Lactic Acid 1.10 mmol/L (0.7-2.0) 10/13/19 04:20 Calcium 8.1 mg/dL (8.4-10.2) L 11/04/19 05:00 Ionized Calcium 5.2 mg/dL (4.8-5.6) 10/18/19 07:41 Phosphorus 2.70 mg/dL (2.5-4.5) 11/02/19 12:43 Magnesium 2.40 mg/dL (1.7-2.3) H 11/02/19 12:43 Total Bilirubin 1.10 mg/dL (0.1-1.2) 10/26/19 06:15 Direct Bilirubin 0.7 mg/dL (0-0.2) H 10/23/19 10:44 Indirect Bilirubin 0.1 mg/dL 10/23/19 10:44 AST 23 units/L (5-40) 10/26/19 06:15 ALT 13 units/L (7-56) 10/26/19 06:15 Alkaline Phosphatase 148 units/L (35-129) H 10/26/19 06:15 Ammonia 49.0 umol/L (25-60) 10/13/19 04:20 Troponin T < 0.010 ng/mL (0.00-0.029) 10/09/19 17:23 C-Reactive Protein 30.60 mg/dL (0.00-1.30) H 10/15/19 04:32 Serum Total Protein 5.2 g/dL (6.1-8.1) L 10/11/19 09:00 Total Protein 5.9 g/dL (6.3-8.2) L 10/26/19 06:15 Albumin 2.4 g/dL (3.9-5) L 10/26/19 06:15 Albumin/Globulin Ratio 0.7 % 10/26/19 06:15 Prealbumin 0.030 g/L (0.200-0.400) L 10/15/19 04:32 [id number]-7-[id number] See scanned result 10/11/19 Unknown Meqjr-0-Gtmqmmftg See scanned result 10/11/19 Unknown Beta Globulins See scanned result 10/11/19 Unknown Gamma Globulins See scanned result 10/11/19 Unknown Abnorm Protein Band 1 see below 10/11/19 09:00 PEP Interpretation See scanned result 10/11/19 Unknown Triglycerides 185 mg/dL (2-149) H 10/26/19 06:15 Urine Color Yellow (Yellow) 10/26/19 Unknown Urine Turbidity Clear (Clear) 10/26/19 Unknown Urine pH 9.0 (5.0-7.0) H 10/26/19 Unknown Ur Specific [place] 1.011 (1.003-1.030) 10/26/19 Unknown Urine Protein 30 mg/dl mg/dL (Negative) 10/26/19 Unknown Urine Glucose (UA) Neg mg/dL (Negative) 10/26/19 Unknown Urine Ketones Neg mg/dL (Negative) 10/26/19 Unknown Urine Blood Neg (Negative) 10/26/19 Unknown Urine Nitrite Neg (Negative) 10/26/19 Unknown Urine Bilirubin Neg (Negative) 10/26/19 Unknown Urine Urobilinogen < 2.0 mg/dL (<2.0) 10/26/19 Unknown Ur Leukocyte Esterase Neg (Negative) 10/26/19 Unknown Urine WBC (Auto) 1.0 /HPF (0.0-6.0) 10/26/19 Unknown Urine RBC (Auto) 1.0 /HPF (0.0-6.0) 10/26/19 Unknown Urine Bacteria (Auto) 1+ /HPF (Negative) 10/11/19 06:23 Urine Mucus Few /HPF 10/26/19 Unknown Urine Eosinophils None seen (None Seen) 10/11/19 06:23 Ur Random Creatinine See scanned result 10/11/19 Unknown U Random Total Protein See scanned result 10/11/19 Unknown Urine Creatinine 116.8 mg/dL (0.1-20.0) H 10/11/19 06:23 Urine Creatinine 118.2 mg/dL (0.1-20.0) H 10/11/19 06:23 Protein/Creatinin Ratio See scanned result 10/11/19 Unknown Urine Sodium 14 mmol/L 10/11/19 06:23 Urine Total Protein 104 mg/dL (5-11.8) H 10/11/19 06:23 Urine Total Protein 105 mg/dL (5-11.8) H 10/11/19 06:23 U Abnormal Prot Band 1 See scanned result 10/11/19 Unknown U Abnormal Prot Band 2 See scanned result 10/11/19 Unknown U Abnormal Prot Band 3 See scanned result 10/11/19 Unknown Vancomycin Trough 41.7 ug/mL (5.0-20.0) H 10/31/19 12:55 Random Vancomycin 9.6 ug/mL (0-40.0) 11/03/19 03:42 Digoxin 0.7 ng/mL (0.9-2.0) L 10/19/19 04:21 Blood Type A POSITIVE 10/23/19 11:50 Antibody Screen Negative 10/23/19 11:50 Crossmatch See Detail 10/23/19 11:50 Active Medications - Current Medications Current Medications: Generic Name Dose Route Start Last Admin Trade Name Freq PRN Reason Stop Dose Admin Acetaminophen 650 mg 10/25/19 13:00 11/03/19 16:03 Tylenol FEEDTUBE 650 mg Q4H PRN Administration Fever >100.5 Albuterol 2.5 mg 10/05/19 21:36 Proventil IH Q4HRT PRN Shortness Of Breath Albuterol/Ipratropium 1 ampul 10/06/19 02:00 11/04/19 07:07 Duoneb *Not For Prn Use* IH 1 ampul Q6HRT VERÓNICA Administration Amiodarone HCl 200 mg 10/23/19 13:00 11/03/19 09:53 Cordarone PO 200 mg QDAY VERÓNICA Administration Lipase/Protease/Amylase 1 each 10/20/19 10:37 Shaggy Moreno 10,500 Unit FEEDTUBE PRN PRN For Clogged Feeding Tube Arformoterol Tartrate 15 mcg 10/06/19 08:30 11/04/19 07:07 Brovana Nebu IH 15 mcg Q12HRT VERÓNICA Administration Budesonide 0.5 mg 10/07/19 12:20 11/04/19 07:07 Pulmicort IH 0.5 mg Q12HRT VERÓNICA Administration Citalopram Hydrobromide 20 mg 10/27/19 12:00 11/03/19 09:57 Celexa PO 20 mg DAILY VERÓNICA Administration Fentanyl 50 mcg 10/25/19 12:35 11/02/19 11:55 Sublimaze IV 50 mcg Q2H PRN Administration PAIN SCORE </=5 Haloperidol Lactate 5 mg 10/25/19 18:22 11/03/19 21:22 Haldol IV 5 mg Q6H PRN Administration Agitation Hydralazine HCl 10 mg 10/28/19 14:09 11/02/19 15:34 Apresoline IV 10 mg Q4HR PRN Administration Hypertension Hydromorphone HCl 2 mg 10/25/19 12:35 11/03/19 09:45 Dilaudid IV 2 mg Q4H PRN Administration PAIN SCORE >/=6 MEROPENEM/NS 1 GRAM/100 ML 1 gram in 100 mls @ 100 mls/hr 10/26/19 18:30 11/04/19 06:32 Merrem/Ns 1 Gram/100 Ml IV Infused Q8H VERÓNICA Infusion Protocol Micafungin Sodium 100 mg/ 100 mls @ 100 mls/hr 10/26/19 18:30 11/04/19 06:32 Sodium Chloride IV Infused QDAY VERÓNICA Infusion Protocol Dextrose 1,000 mls @ 75 mls/hr 11/02/19 09:00 11/03/19 16:03 D5w IV 75 mls/hr DIRECT VERÓNICA Administration Vancomycin HCl 2,000 mg/ 540 mls @ 250 mls/hr 11/02/19 10:00 11/04/19 06:32 Sodium Chloride IV Infused Q24HR VERÓNICA Infusion Insulin Human Lispro 0 unit 10/14/19 12:00 11/04/19 06:31 Humalog SUB-Q Not Given Q6HR [facility] Protocol Lisinopril 20 mg 10/30/19 10:00 11/03/19 09:52 Zestril PO 20 mg QDAY VERÓNICA Administration Metoprolol Tartrate 2.5 mg 10/15/19 15:34 11/01/19 18:00 Metoprolol IV 2.5 mg Q4HR PRN Administration HR >130 Metoprolol Tartrate 50 mg 10/25/19 14:00 11/04/19 06:31 Metoprolol PO 50 mg Q8HR [facility] Administration Multi-Ingred Cream/Lotion/Oil/Oint 1 applic 10/14/19 02:19 Artificial Tears Ophth Oint OU Q4HR PRN Dry Eye(s) Ondansetron HCl 4 mg 10/05/19 21:22 10/11/19 18:20 Zofran IV 4 mg Q3H PRN Administration Nausea And Vomiting Pantoprazole Sodium 40 mg 10/15/19 10:00 11/03/19 09:52 Protonix IV 40 mg QDAY VERÓNICA Administration Simple Syrup 15 ml 10/20/19 10:37 Simple Syrup FEEDTUBE PRN PRN Hypoglycemia Simple Syrup 30 ml 10/20/19 10:37 Simple Syrup FEEDTUBE PRN PRN Hypoglycemia Sodium Bicarbonate 325 mg 10/20/19 10:37 Sodium Bicarbonate FEEDTUBE PRN PRN For Clogged Feeding Tube Sodium Chloride 10 ml 10/05/19 21:22 10/19/19 09:29 Sodium Chloride Flush Syringe 10 Ml IV 10 ml PRN PRN Administration LINE FLUSH Nutrition/Malnutrition Assess - Dietary Evaluation Nutrition/Malnutrition Findings: Nutrition Notes Start: 10/08/19 11:36 Freq: Status: Active Protocol: Document 11/02/19 11:00 DW (Rec: 11/02/19 11:16 DW [id number]) Co-Sign 11/02/19 11:00 LP Nutrition Notes Initial or Follow up Reassessment Current Diagnosis Acute Kidney Injury,COPD, Hypertension Other Pertinent Diagnosis intra-abdominal infection, disruption of bowel anastomosis, LE edema Current Diet Vital 1.2 at 70 ml/hr Labs/Tests Na 157 K 3.0 BUN 23 Cr 0.3 Pertinent Medications Pulmicort D5W at 75 ml/hr Height 6 ft Weight 145 kg [place] Body Weight (kg) 80.90 BMI 43.3 Weight Status Morbidly Obese Subjective/Other Information FU TF tolerance and Na labs Upon arrival pt at goal of 70ml/hr. Per MD new BMP to be taken because he is unsure if Na lab is correct. MD stated to hold TF because during suction, solution is brownish color, wants to be sure it is not GI related. Percent of energy/protein needs met: 99%/74% Burn Absent Trauma Absent GI Symptoms None Current % PO Negligible Minimum of two criteria No Fluid Accumulation Mild (non-severe) #2 Nutrition Diagnosis Inadequate oral intake Diagnosis Progress(for reassessment Continues documentation) #1 Nutrition Diagnosis Increased nutrient needs ( specify in comment below) Diagnosis Progress(for reassessment Continues documentation) Is patient on ventilator? Yes Is Patient Ambulatory and/or Out of Bed No REE-([place]-St. Jeor-confined to bed) 2785.236 Kcal/Kg value to use for calculation 14 Approximate Energy Requirements Using 2030 kcal/Kg Calculation Used for Recommendations Kcal/kg Additional Notes Protein: 202g (up to 2.5 g/kg IBW 80.9 kg) Pay attention to renal issues Fluid: 1 ml/kcal or per MD Nutrition Intervention Change Diet Order: Restart TF when medically able Nutrition Support: Vital AF at 70ml/hr Flush 125 ml q2hr for hypernatremia Once resolved flush 100ml q4hr Kcal 2,016 Protein (gm) 126 Carbohydrates (gm) 150 Fluid (mL) 1,362 Goal #1 Meet at least 80% of kcal/ protein needs via TF Goal #2 TF tolerance Anticipated Discharge Needs: unable to determine at this time Follow-Up By: 11/05/19 Additional Comments FU TF restart and Na labs
[2019-11-04] MEDS: CITALOPRAM 20 MG TAB PO SCH (09:27)
[2019-11-04] MEDS: PANTOPRAZOLE 40 MG INJ IV SCH (09:27)
[2019-11-04] MEDS: LISINOPRIL 20 MG TAB PO SCH (09:27)
[2019-11-04] MEDS: AMIODARONE 200 MG TAB PO SCH (09:27)
[2019-11-04] MEDS: VANCOMYCIN 2,000 MG in SODIUM CHLORIDE 0.9% 500 ML 500 ML IV SCH (09:28)
[2019-11-04] MEDS: MICAFUNGIN 100 MG in SODIUM CHLORIDE 0.9% 100 ML IV SCH (10:55)
--- NOTE | 2019-11-04 11:08 | Progress Note ---
Assessment and Plan 54 y/o male with anastomic leak 11/04: Stable self extubation. Continue chest tube to suction. Will likely start waterseal tomorrow. Goad maybe to get CT out Tuesday. All other drains per surgery. Encouraged use of IS regularly at the bedside and suctioning as needed per . 11/03: Looks clinically better. Na was better on repeat labs. Spoke with and surgery to update them both. Most likely will attempt extubation in the am. Will hold feeds for about an hour in the morning prior to extubation then restart. 11/02: Repeat labs this am. Hard time believing that 2 liters of normal saline made his sodium increase that much. Also, once i discuss with surgery, may consider giving more blood. Will also hold tube feeds briefly as well. In case any procedures. Lovenox held last night. Continue vent support 11/01: Spoke with Dr. Krause this am and understand his concerns. Have started the transfer process. Most ICU's throughout the city are on diversion or full. [facility] has received his [facility]aces[facility] and we are awaiting to hear back from them. CXR is clear. Minimal vent settings. Will continue supportive care for now. Follow up any new ID recs given increasing white and fever. 10/31: Will check CXR tomorrow. Continue chest tube to suction. Will likely stay in until extubated. Continue drains. Explained to staff to be extremely careful with these drains so that they do not come out. 10/30: Acute on chronic respiratory failure requiring reintubation. Appreciate Anesthesia assistance as he was a difficult intubation when we had to change his tube out about 1 week ago. Will continue on 100% until after Scans and then start to wean back down. CXR yesterday looked like pulmonary edema but improved today with positive pressure. Continue supportive care and await results of scans. 10/29: Discussed today on rounds. Patient had some issues over the weekend with the ICE chips and liquids. Will obtain speech consult/eval prior to restarting clears today. Spoke with nutrition and they will adjust tube feeds with new goal. Once at goal will start to taper off TPN. ordered Incentive madhu to bedside. Will also restart home dose of elaine today. pain control and drainage monitoring. Will continue ICU care. 10/26: Patient stable overall. Not ready for floor. Would be ok with step down if beds are needed. If spikes temp again will order blood cultures x2, urine culture, UA and repeat CXR. Gave an additional 40 of lasix this am. Will give more potassium replacement. Continue trickle feeds for now. Will continue PO meds and restart home dose of citalopram. Wean FiO2 and flow for sats >88%. Mildly hypertensive but this was secondary to agitation. Normalizing now. 10/25: Will extubate today. Will use HFNC if distress or hypoxemia is noted. Not a good candidate for bipap given his recent abdominal issues. Spoke with who is now at bedside and surgery. Will continue to attempt to achieve net negative state daily. Hold on further albumin administration. Hypernatremia is iatrogenic from lasix administration Worse case scenario, will re-intubate with anesthesia. 10/24: Responding well to lasix and protein therapy. Will give 2 more doses of lasix today. Consider one for tonight as well. Last albumin today at 1800. CXR is stable, still with layering bilateral pleural effusions. Will reassess again tomorrow. Reviewed all other retail sales vitamin consultant notes. Spoke with sisters at bedside, updated and spoke with surgery. 10/23: Long discussion with surgery and via phone. Anasarca is likely from decreased oncotic pressure and immobility of several days now that abdomen is finally closed. Now fluid is essentially leaking into the interstitium now that the abdomen is shut and there is increased intra-abdominal pressure. Total Protein is 4.5 and albumin is 1.2. This is to be expected given current illness. Will attempt to increase oncotic pressure with 2 units of PRBC's and albumin infusions for the next 24 hours starting at midnight tonight. Will give lasix inbetween transfusions and then again tonight. CXR is consistent with pulmonary edema volume overload. Will continue vent for now and after significant volume removal then will attempt extubation. Discussed with and she understands. Will continue to monitor. Agree with trickle feeds and cards has switched amio over to PO to be given through the G-tube. If tolerates, hopeful to be rid of TPN soon as this is necessary but excessive volume as well. 10/22: Added diprovan as more sedation was needed. Hopefully once closed and no leaks, patient can be extubated. Cards very concerned about length of time for IV amio. Will discuss with surgery the time frame that gut can be used. 10/21: Will hold on weaning until abdomen is closed, especially knowing mental status is good. Will focus on pain control. Replace electrolytes. Appreciate Surgery recs and detail. Follow up any new recs from cards. Or tomorrow for closure CCT 31 minutes. Subjective Date of service: 11/04/19 Principal diagnosis: acute renal failure Interval history: Patient self extubated around 0500. Stable on nasal cannula. at bedside. Groggy voice but no desats. Remainder is negative. Objective Vital Signs - 12hr 11/03/19 11/04/19 11/04/19 23:30 00:00 00:17 Temperature Pulse Rate 80 79 82 Pulse Rate [ Anterior Bilateral Throughout] Pulse Rate [ 86 From Monitor] Respiratory 30 H 29 H Rate Respiratory Rate [Anterior Bilateral Throughout] Blood Pressure 143/57 137/62 137/62 O2 Sat by Pulse 96 95 98 Oximetry 11/04/19 11/04/19 11/04/19 00:30 01:00 01:30 Temperature Pulse Rate 82 82 82 Pulse Rate [ Anterior Bilateral Throughout] Pulse Rate [ From Monitor] Respiratory 28 H 25 H 30 H Rate Respiratory Rate [Anterior Bilateral Throughout] Blood Pressure 129/69 129/69 152/68 O2 Sat by Pulse 97 95 94 Oximetry 11/04/19 11/04/19 11/04/19 02:00 02:30 03:00 Temperature Pulse Rate 82 86 82 Pulse Rate [ Anterior Bilateral Throughout] Pulse Rate [ From Monitor] Respiratory 31 H 32 H 24 Rate Respiratory Rate [Anterior Bilateral Throughout] Blood Pressure 137/57 137/57 161/71 O2 Sat by Pulse 93 94 96 Oximetry 11/04/19 11/04/19 11/04/19 03:30 03:31 04:00 Temperature 99.6 F Pulse Rate 87 90 Pulse Rate [ Anterior Bilateral Throughout] Pulse Rate [ 92 H From Monitor] Respiratory 22 18 Rate Respiratory Rate [Anterior Bilateral Throughout] Blood Pressure 180/89 180/89 O2 Sat by Pulse 96 99 Oximetry 11/04/19 11/04/19 11/04/19 04:04 04:30 05:00 Temperature Pulse Rate 87 87 Pulse Rate [ 85 Anterior Bilateral Throughout] Pulse Rate [ From Monitor] Respiratory 22 37 H Rate Respiratory 24 Rate [Anterior Bilateral Throughout] Blood Pressure 166/76 172/75 O2 Sat by Pulse 96 93 Oximetry 11/04/19 11/04/19 11/04/19 05:30 06:00 06:30 Temperature Pulse Rate 85 85 82 Pulse Rate [ Anterior Bilateral Throughout] Pulse Rate [ From Monitor] Respiratory 38 H 35 H 32 H Rate Respiratory Rate [Anterior Bilateral Throughout] Blood Pressure 155/74 157/82 172/75 O2 Sat by Pulse 94 96 95 Oximetry 11/04/19 11/04/19 11/04/19 06:31 07:00 07:07 Temperature Pulse Rate 87 80 Pulse Rate [ 77 Anterior Bilateral Throughout] Pulse Rate [ From Monitor] Respiratory 36 H Rate Respiratory 33 H Rate [Anterior Bilateral Throughout] Blood Pressure 172/75 172/75 O2 Sat by Pulse 94 38 L Oximetry 11/04/19 11/04/19 11/04/19 07:30 08:00 08:30 Temperature 97 F L Pulse Rate 78 83 84 Pulse Rate [ Anterior Bilateral Throughout] Pulse Rate [ 82 From Monitor] Respiratory 37 H 30 H 35 H Rate Respiratory Rate [Anterior Bilateral Throughout] Blood Pressure 134/71 159/80 156/78 O2 Sat by Pulse 96 98 91 Oximetry 11/04/19 11/04/19 11/04/19 09:00 09:27 09:30 Temperature Pulse Rate 85 84 86 Pulse Rate [ Anterior Bilateral Throughout] Pulse Rate [ From Monitor] Respiratory 37 H 35 H Rate Respiratory Rate [Anterior Bilateral Throughout] Blood Pressure 151/77 151/77 140/68 O2 Sat by Pulse 94 94 Oximetry 11/04/19 11/04/19 11/04/19 10:00 10:30 11:00 Temperature Pulse Rate 86 83 81 Pulse Rate [ Anterior Bilateral Throughout] Pulse Rate [ From Monitor] Respiratory 41 H 34 H 32 H Rate Respiratory Rate [Anterior Bilateral Throughout] Blood Pressure 140/68 133/79 166/76 O2 Sat by Pulse 96 95 95 Oximetry Constitutional: alert, other (critically ill on HFNC) Eyes: non-icteric ENT: oropharynx moist Neck: supple Effort: mildly labored Ascultation: Bilateral: diminished breath sounds (bases) Cardiovascular: regular rate and rhythm (no mrg) Gastrointestinal: tender, other (obese, distended) Integumentary: normal Extremities: no cyanosis, pink and warm, edema (1+ bilateral LE edema) Neurologic: normal mental status, non-focal exam, pupils equal and round Psychiatric: mood appropriate, affect normal CBC and BMP: 11/04/19 05:00 11/04/19 05:00 ABG, PT/INR, D-dimer: ABG POC ABG pH 7.422 (7.35-7.45) 11/03/19 04:28 ABG pH 7.390 pH Units (7.350-7.450) 10/23/19 04:47 POC ABG pCO2 45.4 (35-45) H 11/03/19 04:28 ABG pCO2 48.4 mm Hg 10/23/19 04:47 POC ABG pO2 83 (80-105) 11/03/19 04:28 ABG pO2 68.9 mm Hg (80.0-90.0) L 10/23/19 04:47 POC ABG HCO3 29.6 (22-26 mml/L) 11/03/19 04:28 POC ABG Total CO2 31 (23-27mmol/L) 11/03/19 04:28 POC ABG O2 Sat 96 11/03/19 04:28 ABG O2 Saturation 96.6 % (95.0-99.0) 10/23/19 04:47 Abnormal lab findings: Abnormal Labs 10/06/19 10/06/19 10/07/19 05:36 05:36 05:54 WBC 21.8 H 21.5 H RBC 3.55 L Hgb 10.9 L Hct 32.7 L MCHC RDW Plt Count Lymph % (Auto) Douglas % (Auto) Lymph # Douglas # Seg Neutrophils % Seg Neuts % (Manual) 91.0 H Lymphocytes % (Manual) 2.0 L Seg Neutrophils # Seg Neutrophils # Man 19.8 H Lymphocytes # (Manual) 0.4 L Monocytes # (Manual) 1.1 H POC ABG pH ABG pH POC ABG pCO2 POC ABG pO2 ABG pO2 ABG HCO3 ABG Base Excess ABG Hemoglobin Oxyhemoglobin Sodium 135 L Potassium Chloride 95.9 L Carbon Dioxide BUN Creatinine 0.7 L Glucose POC Glucose Calcium Phosphorus Magnesium Direct Bilirubin AST Alkaline Phosphatase C-Reactive Protein Serum Total Protein Total Protein 5.7 L Albumin 2.5 L Prealbumin Caacq-7-Shvnsybmr Eqhyj-9-Cndwgyoot Gamma Globulins PEP Interpretation Triglycerides Urine pH Urine Creatinine Urine Total Protein Vancomycin Trough Digoxin Crossmatch 10/07/19 10/09/1919 05:54 10:52 10:52 WBC 16.6 H RBC Hgb Hct MCHC RDW Plt Count 498 H Lymph % (Auto) Douglas % (Auto) Lymph # Douglas # Seg Neutrophils % Seg Neuts % (Manual) 93.0 H Lymphocytes % (Manual) 5.0 L Seg Neutrophils # Seg Neutrophils # Man 15.4 H Lymphocytes # (Manual) 0.8 L Monocytes # (Manual) POC ABG pH ABG pH POC ABG pCO2 POC ABG pO2 ABG pO2 ABG HCO3 ABG Base Excess ABG Hemoglobin Oxyhemoglobin Sodium Potassium Chloride 97.9 L Carbon Dioxide 20 L D BUN 23 H Creatinine 1.7 H D Glucose 109 H POC Glucose Calcium 8.1 L Phosphorus Magnesium Direct Bilirubin AST Alkaline Phosphatase C-Reactive Protein Serum Total Protein Total Protein Albumin Prealbumin Whyhl-4-Sdhvkagrt Zqfwv-3-Ahxhjdfum Gamma Globulins PEP Interpretation Triglycerides Urine pH Urine Creatinine Urine Total Protein Vancomycin Trough Digoxin Crossmatch 10/09/19 10/10/19 10/10/19 17:23 05:30 05:30 WBC 14.6 H RBC Hgb 11.1 L Hct 33.5 L MCHC RDW Plt Count 527 H Lymph % (Auto) Douglas % (Auto) Lymph # Douglas # Seg Neutrophils % Seg Neuts % (Manual) Lymphocytes % (Manual) Seg Neutrophils # Seg Neutrophils # Man Lymphocytes # (Manual) Monocytes # (Manual) POC ABG pH ABG pH POC ABG pCO2 POC ABG pO2 ABG pO2 ABG HCO3 ABG Base Excess ABG Hemoglobin Oxyhemoglobin Sodium 130 L D Potassium 5.1 H Chloride 90.0 L 91.0 L Carbon Dioxide 20 L 20 L BUN 27 H 35 H Creatinine 1.9 H 2.0 H Glucose 104 H POC Glucose Calcium Phosphorus Magnesium Direct Bilirubin AST Alkaline Phosphatase C-Reactive Protein Serum Total Protein Total Protein Albumin Prealbumin Rgalk-7-Dbokphnur Tawwe-9-Zeckhxrtw Gamma Globulins PEP Interpretation Triglycerides Urine pH Urine Creatinine Urine Total Protein Vancomycin Trough Digoxin Crossmatch 10/10/19 10/10/19 10/11/19 08:33 08:44 05:41 WBC 13.2 H RBC Hgb 11.3 L Hct 33.8 L MCHC RDW 15.3 H Plt Count 543 H Lymph % (Auto) Douglas % (Auto) Lymph # Douglas # Seg Neutrophils % Seg Neuts % (Manual) Lymphocytes % (Manual) Seg Neutrophils # Seg Neutrophils # Man Lymphocytes # (Manual) Monocytes # (Manual) POC ABG pH ABG pH POC ABG pCO2 POC ABG pO2 ABG pO2 ABG HCO3 ABG Base Excess ABG Hemoglobin Oxyhemoglobin Sodium Potassium Chloride Carbon Dioxide BUN Creatinine Glucose 113 H POC Glucose 117 H Calcium Phosphorus Magnesium Direct Bilirubin AST Alkaline Phosphatase C-Reactive Protein Serum Total Protein Total Protein Albumin Prealbumin Zbxqe-5-Jxvzmfkfu Smfsk-7-Hptltlpuy Gamma Globulins PEP Interpretation Triglycerides Urine pH Urine Creatinine Urine Total Protein Vancomycin Trough Digoxin Crossmatch 10/11/19 10/11/19 10/11/19 05:41 06:23 06:23 WBC RBC Hgb Hct MCHC RDW Plt Count Lymph % (Auto) Douglas % (Auto) Lymph # Douglas # Seg Neutrophils % Seg Neuts % (Manual) Lymphocytes % (Manual) Seg Neutrophils # Seg Neutrophils # Man Lymphocytes # (Manual) Monocytes # (Manual) POC ABG pH ABG pH POC ABG pCO2 POC ABG pO2 ABG pO2 ABG HCO3 ABG Base Excess ABG Hemoglobin Oxyhemoglobin Sodium 134 L Potassium Chloride 96.3 L Carbon Dioxide BUN 37 H Creatinine Glucose 58 L POC Glucose Calcium Phosphorus 4.90 H Magnesium Direct Bilirubin AST Alkaline Phosphatase C-Reactive Protein Serum Total Protein Total Protein Albumin Prealbumin Mvydq-6-Uqknvjqpt Bktlu-4-Pczmxctuc Gamma Globulins PEP Interpretation Triglycerides Urine pH Urine Creatinine 118.2 H 116.8 H Urine Total Protein 105 H 104 H Vancomycin Trough Digoxin Crossmatch 10/11/19 10/12/19 10/12/19 09:00 06:09 06:09 WBC 13.8 H RBC 3.39 L Hgb 10.2 L Hct 30.9 L MCHC RDW 15.5 H Plt Count 459 H Lymph % (Auto) Douglas % (Auto) Lymph # Douglas # Seg Neutrophils % Seg Neuts % (Manual) Lymphocytes % (Manual) Seg Neutrophils # Seg Neutrophils # Man Lymphocytes # (Manual) Monocytes # (Manual) POC ABG pH ABG pH POC ABG pCO2 POC ABG pO2 ABG pO2 ABG HCO3 ABG Base Excess ABG Hemoglobin Oxyhemoglobin Sodium 131 L Potassium Chloride 96.2 L Carbon Dioxide 21 L BUN 43 H Creatinine Glucose 72 L POC Glucose Calcium Phosphorus Magnesium Direct Bilirubin AST Alkaline Phosphatase C-Reactive Protein Serum Total Protein 5.2 L Total Protein Albumin 1.9 L Prealbumin Gbrrp-6-Gziawhfxx 0.9 H Iqbxf-5-Fmfcuzdlx 1.0 H Gamma Globulins 0.7 L PEP Interpretation see below H Triglycerides Urine pH Urine Creatinine Urine Total Protein Vancomycin Trough Digoxin Crossmatch 10/12/19 10/12/19 10/12/19 08:20 09:30 09:30 WBC RBC Hgb Hct MCHC RDW Plt Count Lymph % (Auto) Douglas % (Auto) Lymph # Douglas # Seg Neutrophils % Seg Neuts % (Manual) Lymphocytes % (Manual) Seg Neutrophils # Seg Neutrophils # Man Lymphocytes # (Manual) Monocytes # (Manual) POC ABG pH ABG pH POC ABG pCO2 POC ABG pO2 63 L ABG pO2 ABG HCO3 ABG Base Excess ABG Hemoglobin Oxyhemoglobin Sodium Potassium Chloride Carbon Dioxide BUN Creatinine Glucose POC Glucose Calcium Phosphorus Magnesium 2.50 H Direct Bilirubin 0.3 H AST Alkaline Phosphatase C-Reactive Protein Serum Total Protein Total Protein 5.1 L Albumin 2.2 L Prealbumin Nxebi-0-Dstwdwhgs Mxwoe-6-Vtvcljwmp Gamma Globulins PEP Interpretation Triglycerides Urine pH Urine Creatinine Urine Total Protein Vancomycin Trough Digoxin Crossmatch 10/13/19 10/13/19 10/13/19 04:20 04:20 13:20 WBC 15.7 H RBC 3.64 L Hgb 10.9 L Hct 33.1 L MCHC RDW 15.8 H Plt Count 488 H Lymph % (Auto) Douglas % (Auto) Lymph # Douglas # Seg Neutrophils % Seg Neuts % (Manual) Lymphocytes % (Manual) Seg Neutrophils # Seg Neutrophils # Man Lymphocytes # (Manual) Monocytes # (Manual) POC ABG pH ABG pH POC ABG pCO2 POC ABG pO2 ABG pO2 ABG HCO3 ABG Base Excess ABG Hemoglobin Oxyhemoglobin Sodium Potassium Chloride Carbon Dioxide BUN 28 H Creatinine Glucose POC Glucose Calcium Phosphorus Magnesium Direct Bilirubin AST Alkaline Phosphatase C-Reactive Protein Serum Total Protein Total Protein Albumin Prealbumin Enxpz-9-Fckgwrbls Sngat-0-Ocelhocfh Gamma Globulins PEP Interpretation Triglycerides Urine pH Urine Creatinine Urine Total Protein Vancomycin Trough Digoxin Crossmatch See Detail 10/13/19 10/13/19 10/14/19 18:24 20:05 04:47 WBC 24.2 H RBC Hgb 10.9 L Hct 34.2 L MCHC RDW 17.0 H Plt Count 442 H Lymph % (Auto) Douglas % (Auto) Lymph # Douglas # Seg Neutrophils % Seg Neuts % (Manual) Lymphocytes % (Manual) Seg Neutrophils # Seg Neutrophils # Man Lymphocytes # (Manual) Monocytes # (Manual) POC ABG pH ABG pH 7.180 L* 7.278 L POC ABG pCO2 POC ABG pO2 ABG pO2 130.7 H ABG HCO3 ABG Base Excess -6.5 L -6.5 L ABG Hemoglobin 12.2 L 12.3 L Oxyhemoglobin 92.9 L Sodium Potassium Chloride Carbon Dioxide BUN Creatinine Glucose POC Glucose Calcium Phosphorus Magnesium Direct Bilirubin AST Alkaline Phosphatase C-Reactive Protein Serum Total Protein Total Protein Albumin Prealbumin Wfjgl-1-Rsbhautdq Avndz-8-Csntnbtzx Gamma Globulins PEP Interpretation Triglycerides Urine pH Urine Creatinine Urine Total Protein Vancomycin Trough Digoxin Crossmatch 10/14/19 10/14/19 10/14/19 04:47 05:40 10:14 WBC RBC Hgb Hct MCHC RDW Plt Count Lymph % (Auto) Douglas % (Auto) Lymph # Douglas # Seg Neutrophils % Seg Neuts % (Manual) Lymphocytes % (Manual) Seg Neutrophils # Seg Neutrophils # Man Lymphocytes # (Manual) Monocytes # (Manual) POC ABG pH ABG pH POC ABG pCO2 POC ABG pO2 ABG pO2 76.3 L ABG HCO3 19.1 L ABG Base Excess -5.8 L ABG Hemoglobin 10.9 L Oxyhemoglobin 93.4 L Sodium Potassium 5.1 H D Chloride 109.2 H Carbon Dioxide 17 L BUN 38 H Creatinine 1.8 H D Glucose 104 H POC Glucose Calcium 7.4 L Phosphorus 5.60 H Magnesium Direct Bilirubin AST Alkaline Phosphatase C-Reactive Protein Serum Total Protein Total Protein Albumin Prealbumin Wdfdb-6-Bfxatpvtw Tityd-5-Thypghiki Gamma Globulins PEP Interpretation Triglycerides Urine pH Urine Creatinine Urine Total Protein Vancomycin Trough Digoxin Crossmatch 10/14/19 10/15/19 10/15/19 23:46 04:32 04:32 WBC 15.5 H RBC 2.89 L Hgb 8.8 L Hct 27.3 L D MCHC RDW 16.6 H Plt Count Lymph % (Auto) Douglas % (Auto) Lymph # Douglas # Seg Neutrophils % Seg Neuts % (Manual) Lymphocytes % (Manual) Seg Neutrophils # Seg Neutrophils # Man Lymphocytes # (Manual) Monocytes # (Manual) POC ABG pH ABG pH POC ABG pCO2 POC ABG pO2 ABG pO2 ABG HCO3 ABG Base Excess ABG Hemoglobin Oxyhemoglobin Sodium 147 H Potassium Chloride 114.0 H Carbon Dioxide 19 L BUN 42 H Creatinine Glucose 112 H POC Glucose 113 H Calcium 7.3 L Phosphorus Magnesium Direct Bilirubin AST 72 H Alkaline Phosphatase C-Reactive Protein 30.60 H Serum Total Protein Total Protein 4.0 L D Albumin 1.7 L Prealbumin 0.030 L Kbica-6-Cbjoshycq Yxmrf-9-Yqtwnjnve Gamma Globulins PEP Interpretation Triglycerides Urine pH Urine Creatinine Urine Total Protein Vancomycin Trough Digoxin Crossmatch 10/15/19 10/15/19 10/15/19 05:30 12:08 17:23 WBC RBC Hgb Hct MCHC RDW Plt Count Lymph % (Auto) Douglas % (Auto) Lymph # Douglas # Seg Neutrophils % Seg Neuts % (Manual) Lymphocytes % (Manual) Seg Neutrophils # Seg Neutrophils # Man Lymphocytes # (Manual) Monocytes # (Manual) POC ABG pH ABG pH 7.296 L POC ABG pCO2 POC ABG pO2 ABG pO2 114.7 H ABG HCO3 ABG Base Excess -3.7 L ABG Hemoglobin 8.9 L Oxyhemoglobin Sodium Potassium Chloride Carbon Dioxide BUN Creatinine Glucose POC Glucose 106 H 106 H Calcium Phosphorus Magnesium Direct Bilirubin AST Alkaline Phosphatase C-Reactive Protein Serum Total Protein Total Protein Albumin Prealbumin Xtusc-7-Zoubeuejy Ukduf-9-Puernrxjl Gamma Globulins PEP Interpretation Triglycerides Urine pH Urine Creatinine Urine Total Protein Vancomycin Trough Digoxin Crossmatch 10/16/19 10/16/19 10/16/19 00:07 04:44 05:24 WBC RBC Hgb Hct MCHC RDW Plt Count Lymph % (Auto) Douglas % (Auto) Lymph # Douglas # Seg Neutrophils % Seg Neuts % (Manual) Lymphocytes % (Manual) Seg Neutrophils # Seg Neutrophils # Man Lymphocytes # (Manual) Monocytes # (Manual) POC ABG pH ABG pH POC ABG pCO2 POC ABG pO2 ABG pO2 ABG HCO3 ABG Base Excess ABG Hemoglobin Oxyhemoglobin Sodium 150 H Potassium Chloride 115.8 H Carbon Dioxide BUN 35 H Creatinine Glucose 129 H POC Glucose 119 H 129 H Calcium 7.3 L Phosphorus 1.80 L D Magnesium Direct Bilirubin AST Alkaline Phosphatase C-Reactive Protein Serum Total Protein Total Protein Albumin Prealbumin Bqbiw-2-Vvnqkpdfy Nvjzy-3-Ddlexsodx Gamma Globulins PEP Interpretation Triglycerides Urine pH Urine Creatinine Urine Total Protein Vancomycin Trough Digoxin Crossmatch 10/16/19 10/16/19 10/16/19 06:53 09:20 11:58 WBC 14.6 H RBC 2.70 L Hgb 8.1 L Hct 25.2 L MCHC RDW 16.7 H Plt Count Lymph % (Auto) Douglas % (Auto) Lymph # Douglas # Seg Neutrophils % Seg Neuts % (Manual) 79.0 H Lymphocytes % (Manual) 4.0 L Seg Neutrophils # Seg Neutrophils # Man 11.5 H Lymphocytes # (Manual) 0.6 L Monocytes # (Manual) POC ABG pH ABG pH POC ABG pCO2 47.0 H POC ABG pO2 ABG pO2 ABG HCO3 ABG Base Excess ABG Hemoglobin Oxyhemoglobin Sodium Potassium Chloride Carbon Dioxide BUN Creatinine Glucose POC Glucose Calcium Phosphorus Magnesium Direct Bilirubin AST Alkaline Phosphatase C-Reactive Protein Serum Total Protein Total Protein Albumin Prealbumin Gvuyi-6-Hsbfhgivj Zcrot-8-Wobvcflvy Gamma Globulins PEP Interpretation Triglycerides Urine pH Urine Creatinine Urine Total Protein Vancomycin Trough Digoxin Crossmatch See Detail 10/16/19 10/16/19 10/16/19 15:23 17:50 23:58 WBC RBC Hgb Hct MCHC RDW Plt Count Lymph % (Auto) Douglas % (Auto) Lymph # Douglas # Seg Neutrophils % Seg Neuts % (Manual) Lymphocytes % (Manual) Seg Neutrophils # Seg Neutrophils # Man Lymphocytes # (Manual) Monocytes # (Manual) POC ABG pH ABG pH POC ABG pCO2 POC ABG pO2 ABG pO2 ABG HCO3 ABG Base Excess ABG Hemoglobin Oxyhemoglobin Sodium Potassium Chloride Carbon Dioxide BUN Creatinine Glucose POC Glucose 221 H 201 H 179 H Calcium Phosphorus Magnesium Direct Bilirubin AST Alkaline Phosphatase C-Reactive Protein Serum Total Protein Total Protein Albumin Prealbumin Dzyhn-2-Nnuedfrbc Jlwpe-4-Xtapjtmzw Gamma Globulins PEP Interpretation Triglycerides Urine pH Urine Creatinine Urine Total Protein Vancomycin Trough Digoxin Crossmatch 10/17/19 10/17/19 10/17/19 04:08 04:08 05:41 WBC 22.3 H RBC 3.35 L Hgb 10.0 L Hct 31.2 L D MCHC RDW 16.1 H Plt Count Lymph % (Auto) Douglas % (Auto) Lymph # Douglas # Seg Neutrophils % Seg Neuts % (Manual) Lymphocytes % (Manual) Seg Neutrophils # Seg Neutrophils # Man Lymphocytes # (Manual) Monocytes # (Manual) POC ABG pH 7.310 L ABG pH POC ABG pCO2 52.8 H POC ABG pO2 70 L ABG pO2 ABG HCO3 ABG Base Excess ABG Hemoglobin Oxyhemoglobin Sodium 147 H Potassium Chloride 114.9 H Carbon Dioxide BUN 36 H Creatinine Glucose 165 H POC Glucose Calcium 6.9 L Phosphorus 2.20 L D Magnesium Direct Bilirubin AST Alkaline Phosphatase C-Reactive Protein Serum Total Protein Total Protein Albumin Prealbumin Yerdx-4-Gzpjdrotd Gtimf-6-Bqoncsfwp Gamma Globulins PEP Interpretation Triglycerides Urine pH Urine Creatinine Urine Total Protein Vancomycin Trough Digoxin Crossmatch 10/17/19 10/17/19 10/17/19 05:42 11:33 18:17 WBC RBC Hgb Hct MCHC RDW Plt Count Lymph % (Auto) Douglas % (Auto) Lymph # Douglas # Seg Neutrophils % Seg Neuts % (Manual) Lymphocytes % (Manual) Seg Neutrophils # Seg Neutrophils # Man Lymphocytes # (Manual) Monocytes # (Manual) POC ABG pH ABG pH POC ABG pCO2 POC ABG pO2 ABG pO2 ABG HCO3 ABG Base Excess ABG Hemoglobin Oxyhemoglobin Sodium Potassium Chloride Carbon Dioxide BUN Creatinine Glucose POC Glucose 149 H 154 H 163 H Calcium Phosphorus Magnesium Direct Bilirubin AST Alkaline Phosphatase C-Reactive Protein Serum Total Protein Total Protein Albumin Prealbumin Ggncn-5-Tzpqfreoe Gwwph-6-Kngmvebon Gamma Globulins PEP Interpretation Triglycerides Urine pH Urine Creatinine Urine Total Protein Vancomycin Trough Digoxin Crossmatch 10/17/19 10/18/19 10/18/19 23:34 03:29 04:50 WBC RBC Hgb Hct MCHC RDW Plt Count Lymph % (Auto) Douglas % (Auto) Lymph # Douglas # Seg Neutrophils % Seg Neuts % (Manual) Lymphocytes % (Manual) Seg Neutrophils # Seg Neutrophils # Man Lymphocytes # (Manual) Monocytes # (Manual) POC ABG pH ABG pH POC ABG pCO2 POC ABG pO2 ABG pO2 78.8 L ABG HCO3 ABG Base Excess ABG Hemoglobin 8.8 L Oxyhemoglobin Sodium Potassium Chloride 111.8 H Carbon Dioxide BUN 27 H Creatinine 0.6 L Glucose 140 H POC Glucose 135 H Calcium 7.1 L Phosphorus 1.80 L Magnesium Direct Bilirubin AST Alkaline Phosphatase C-Reactive Protein Serum Total Protein Total Protein Albumin Prealbumin Bfbib-4-Wunoigadq Oojkt-2-Ppwujuzuz Gamma Globulins PEP Interpretation Triglycerides Urine pH Urine Creatinine Urine Total Protein Vancomycin Trough Digoxin Crossmatch 10/18/19 10/18/19 10/18/19 05:45 11:19 18:26 WBC RBC Hgb Hct MCHC RDW Plt Count Lymph % (Auto) [place] % (Auto) Lymph # [place] # Seg Neutrophils % Seg Neuts % (Manual) Lymphocytes % (Manual) Seg Neutrophils # Seg Neutrophils # Man Lymphocytes # (Manual) Monocytes # (Manual) POC ABG pH ABG pH POC ABG pCO2 POC ABG pO2 ABG pO2 ABG HCO3 ABG Base Excess ABG Hemoglobin Oxyhemoglobin Sodium Potassium Chloride Carbon Dioxide BUN Creatinine Glucose POC Glucose 145 H 152 H 125 H Calcium Phosphorus Magnesium Direct Bilirubin AST Alkaline Phosphatase C-Reactive Protein Serum Total Protein Total Protein Albumin Prealbumin Uclgp-3-Hbsarlxpn Pewkm-4-Hxvlysoqv Gamma Globulins PEP Interpretation Triglycerides Urine pH Urine Creatinine Urine Total Protein Vancomycin Trough Digoxin Crossmatch 10/18/19 10/19/19 10/19/19 23:27 04:21 04:21 WBC RBC Hgb Hct MCHC RDW Plt Count Lymph % (Auto) [place] % (Auto) Lymph # [place] # Seg Neutrophils % Seg Neuts % (Manual) Lymphocytes % (Manual) Seg Neutrophils # Seg Neutrophils # Man Lymphocytes # (Manual) Monocytes # (Manual) POC ABG pH ABG pH POC ABG pCO2 POC ABG pO2 ABG pO2 ABG HCO3 ABG Base Excess ABG Hemoglobin Oxyhemoglobin Sodium Potassium Chloride 108.4 H Carbon Dioxide BUN 22 H Creatinine 0.5 L Glucose 123 H POC Glucose 127 H Calcium 7.4 L Phosphorus 1.80 L Magnesium Direct Bilirubin AST Alkaline Phosphatase C-Reactive Protein Serum Total Protein Total Protein Albumin Prealbumin Jguio-5-Bkzxvbtlw Vnclw-7-Pqpbumrak Gamma Globulins PEP Interpretation Triglycerides Urine pH Urine Creatinine Urine Total Protein Vancomycin Trough Digoxin 0.7 L Crossmatch 10/19/19 10/19/19 10/19/19 05:00 05:35 11:26 WBC RBC Hgb Hct MCHC RDW Plt Count Lymph % (Auto) [place] % (Auto) Lymph # [place] # Seg Neutrophils % Seg Neuts % (Manual) Lymphocytes % (Manual) Seg Neutrophils # Seg Neutrophils # Man Lymphocytes # (Manual) Monocytes # (Manual) POC ABG pH ABG pH 7.456 H POC ABG pCO2 POC ABG pO2 ABG pO2 78.8 L ABG HCO3 ABG Base Excess ABG Hemoglobin 5.6 L Oxyhemoglobin Sodium Potassium Chloride Carbon Dioxide BUN Creatinine Glucose POC Glucose 124 H 111 H Calcium Phosphorus Magnesium Direct Bilirubin AST Alkaline Phosphatase C-Reactive Protein Serum Total Protein Total Protein Albumin Prealbumin Bdpiq-6-Wytaoipqo Ionwk-0-Hpciyqohg Gamma Globulins PEP Interpretation Triglycerides Urine pH Urine Creatinine Urine Total Protein Vancomycin Trough Digoxin Crossmatch 10/19/19 10/20/19 10/20/19 23:23 04:50 05:17 WBC RBC Hgb Hct MCHC RDW Plt Count Lymph % (Auto) [place] % (Auto) Lymph # [place] # Seg Neutrophils % Seg Neuts % (Manual) Lymphocytes % (Manual) Seg Neutrophils # Seg Neutrophils # Man Lymphocytes # (Manual) Monocytes # (Manual) POC ABG pH ABG pH POC ABG pCO2 POC ABG pO2 ABG pO2 ABG HCO3 ABG Base Excess ABG Hemoglobin Oxyhemoglobin Sodium Potassium Chloride 108.1 H Carbon Dioxide BUN Creatinine 0.4 L Glucose 134 H POC Glucose 129 H 123 H Calcium 7.1 L Phosphorus Magnesium Direct Bilirubin AST Alkaline Phosphatase C-Reactive Protein Serum Total Protein Total Protein Albumin Prealbumin Qjcvm-2-Vttymilhi Qobph-2-Fgacznatf Gamma Globulins PEP Interpretation Triglycerides Urine pH Urine Creatinine Urine Total Protein Vancomycin Trough Digoxin Crossmatch 10/20/19 10/20/19 10/21/19 11:40 19:06 05:08 WBC RBC Hgb Hct MCHC RDW Plt Count Lymph % (Auto) [place] % (Auto) Lymph # [place] # Seg Neutrophils % Seg Neuts % (Manual) Lymphocytes % (Manual) Seg Neutrophils # Seg Neutrophils # Man Lymphocytes # (Manual) Monocytes # (Manual) POC ABG pH ABG pH POC ABG pCO2 POC ABG pO2 ABG pO2 ABG HCO3 ABG Base Excess ABG Hemoglobin Oxyhemoglobin Sodium Potassium Chloride Carbon Dioxide BUN Creatinine Glucose POC Glucose 139 H 117 H 131 H Calcium Phosphorus Magnesium Direct Bilirubin AST Alkaline Phosphatase C-Reactive Protein Serum Total Protein Total Protein Albumin Prealbumin Kptuq-1-Gksxedzyq Yvfly-7-Awygyuvmu Gamma Globulins PEP Interpretation Triglycerides Urine pH Urine Creatinine Urine Total Protein Vancomycin Trough Digoxin Crossmatch 10/21/19 10/21/19 10/21/19 05:30 12:04 17:31 WBC RBC Hgb Hct MCHC RDW Plt Count Lymph % (Auto) [place] % (Auto) Lymph # [place] # Seg Neutrophils % Seg Neuts % (Manual) Lymphocytes % (Manual) Seg Neutrophils # Seg Neutrophils # Man Lymphocytes # (Manual) Monocytes # (Manual) POC ABG pH ABG pH POC ABG pCO2 POC ABG pO2 ABG pO2 ABG HCO3 ABG Base Excess ABG Hemoglobin Oxyhemoglobin Sodium Potassium Chloride 107.8 H Carbon Dioxide BUN Creatinine 0.5 L Glucose 119 H POC Glucose 119 H 110 H Calcium 7.6 L Phosphorus Magnesium Direct Bilirubin AST Alkaline Phosphatase C-Reactive Protein Serum Total Protein Total Protein Albumin Prealbumin Poluc-1-Qeuhgokyv Lsvoe-1-Bluvwjgte Gamma Globulins PEP Interpretation Triglycerides Urine pH Urine Creatinine Urine Total Protein Vancomycin Trough Digoxin Crossmatch 10/22/19 10/22/19 10/22/19 05:14 05:37 12:07 WBC RBC Hgb Hct MCHC RDW Plt Count Lymph % (Auto) [place] % (Auto) Lymph # [place] # Seg Neutrophils % Seg Neuts % (Manual) Lymphocytes % (Manual) Seg Neutrophils # Seg Neutrophils # Man Lymphocytes # (Manual) Monocytes # (Manual) POC ABG pH ABG pH POC ABG pCO2 POC ABG pO2 ABG pO2 ABG HCO3 ABG Base Excess ABG Hemoglobin Oxyhemoglobin Sodium Potassium Chloride Carbon Dioxide BUN Creatinine 0.5 L Glucose 116 H POC Glucose 110 H 126 H Calcium 7.7 L Phosphorus Magnesium Direct Bilirubin AST Alkaline Phosphatase C-Reactive Protein Serum Total Protein Total Protein Albumin Prealbumin Gwpfd-5-Mmvbkjvqz Oturp-8-Urynjhhll Gamma Globulins PEP Interpretation Triglycerides Urine pH Urine Creatinine Urine Total Protein Vancomycin Trough Digoxin Crossmatch 10/22/19 10/22/19 10/23/19 18:36 23:19 04:39 WBC RBC Hgb Hct MCHC RDW Plt Count Lymph % (Auto) [place] % (Auto) Lymph # [place] # Seg Neutrophils % Seg Neuts % (Manual) Lymphocytes % (Manual) Seg Neutrophils # Seg Neutrophils # Man Lymphocytes # (Manual) Monocytes # (Manual) POC ABG pH ABG pH POC ABG pCO2 POC ABG pO2 ABG pO2 ABG HCO3 ABG Base Excess ABG Hemoglobin Oxyhemoglobin Sodium Potassium Chloride Carbon Dioxide BUN Creatinine Glucose POC Glucose 120 H 127 H 112 H Calcium Phosphorus Magnesium Direct Bilirubin AST Alkaline Phosphatase C-Reactive Protein Serum Total Protein Total Protein Albumin Prealbumin Lxnto-3-Jahayqfyb Nhfnm-7-Eahgkmcuy Gamma Globulins PEP Interpretation Triglycerides Urine pH Urine Creatinine Urine Total Protein Vancomycin Trough Digoxin Crossmatch 10/23/19 10/23/19 10/23/19 04:47 05:15 10:44 WBC 18.3 H RBC 2.33 L Hgb 7.0 L Hct 21.5 L MCHC RDW 16.2 H Plt Count Lymph % (Auto) 4.9 L [place] % (Auto) 8.1 H Lymph # 0.9 L [place] # 1.5 H Seg Neutrophils % 86.7 H Seg Neuts % (Manual) Lymphocytes % (Manual) Seg Neutrophils # 15.9 H Seg Neutrophils # Man Lymphocytes # (Manual) Monocytes # (Manual) POC ABG pH ABG pH POC ABG pCO2 POC ABG pO2 ABG pO2 68.9 L ABG HCO3 28.7 H ABG Base Excess 3.4 H ABG Hemoglobin 6.6 L Oxyhemoglobin 94.1 L Sodium Potassium Chloride Carbon Dioxide BUN Creatinine 0.5 L Glucose 165 H POC Glucose Calcium 7.4 L Phosphorus Magnesium Direct Bilirubin AST Alkaline Phosphatase C-Reactive Protein Serum Total Protein Total Protein Albumin Prealbumin Nxjuz-3-Uhfirhepx Iwhmq-3-Jqmardmzl Gamma Globulins PEP Interpretation Triglycerides Urine pH Urine Creatinine Urine Total Protein Vancomycin Trough Digoxin Crossmatch 10/23/19 10/23/19 10/23/19 10:44 11:46 11:50 WBC RBC Hgb Hct MCHC RDW Plt Count Lymph % (Auto) [place] % (Auto) Lymph # [place] # Seg Neutrophils % Seg Neuts % (Manual) Lymphocytes % (Manual) Seg Neutrophils # Seg Neutrophils # Man Lymphocytes # (Manual) Monocytes # (Manual) POC ABG pH ABG pH POC ABG pCO2 POC ABG pO2 ABG pO2 ABG HCO3 ABG Base Excess ABG Hemoglobin Oxyhemoglobin Sodium Potassium Chloride Carbon Dioxide BUN Creatinine Glucose POC Glucose 138 H Calcium Phosphorus Magnesium Direct Bilirubin 0.7 H AST Alkaline Phosphatase C-Reactive Protein Serum Total Protein Total Protein 4.5 L Albumin 1.2 L Prealbumin Hxeqj-3-Saartshxj Lanmr-4-Mquqgugwo Gamma Globulins PEP Interpretation Triglycerides Urine pH Urine Creatinine Urine Total Protein Vancomycin Trough Digoxin Crossmatch See Detail 10/23/19 10/24/19 10/24/19 17:53 00:07 05:05 WBC RBC Hgb Hct MCHC RDW Plt Count Lymph % (Auto) [place] % (Auto) Lymph # [place] # Seg Neutrophils % Seg Neuts % (Manual) Lymphocytes % (Manual) Seg Neutrophils # Seg Neutrophils # Man Lymphocytes # (Manual) Monocytes # (Manual) POC ABG pH ABG pH POC ABG pCO2 POC ABG pO2 ABG pO2 ABG HCO3 ABG Base Excess ABG Hemoglobin Oxyhemoglobin Sodium Potassium 3.5 L Chloride Carbon Dioxide BUN Creatinine 0.5 L Glucose 116 H POC Glucose 137 H 110 H Calcium 8.0 L Phosphorus Magnesium Direct Bilirubin AST Alkaline Phosphatase C-Reactive Protein Serum Total Protein Total Protein Albumin Prealbumin Rjnsd-0-Pirnkdgox Hrzcz-9-Hisabwmtm Gamma Globulins PEP Interpretation Triglycerides Urine pH Urine Creatinine Urine Total Protein Vancomycin Trough Digoxin Crossmatch 10/24/19 10/24/19 10/24/19 05:05 11:56 13:00 WBC 13.0 H RBC 2.73 L Hgb 8.0 L Hct 24.2 L MCHC RDW 17.9 H Plt Count Lymph % (Auto) 7.0 L [place] % (Auto) 9.5 H Lymph # 0.9 L [place] # 1.2 H Seg Neutrophils % 82.7 H Seg Neuts % (Manual) Lymphocytes % (Manual) Seg Neutrophils # 10.7 H Seg Neutrophils # Man Lymphocytes # (Manual) Monocytes # (Manual) POC ABG pH ABG pH POC ABG pCO2 POC ABG pO2 ABG pO2 ABG HCO3 ABG Base Excess ABG Hemoglobin Oxyhemoglobin Sodium Potassium Chloride Carbon Dioxide BUN Creatinine Glucose POC Glucose 159 H Calcium Phosphorus Magnesium Direct Bilirubin AST Alkaline Phosphatase C-Reactive Protein Serum Total Protein Total Protein Albumin Prealbumin Eefim-8-Hpqqlxpow Ruokj-3-Lxhhisbyh Gamma Globulins PEP Interpretation Triglycerides 216 H Urine pH Urine Creatinine Urine Total Protein Vancomycin Trough Digoxin Crossmatch 10/24/19 10/24/19 10/25/19 17:42 23:45 04:19 WBC RBC Hgb Hct MCHC RDW Plt Count Lymph % (Auto) [place] % (Auto) Lymph # [place] # Seg Neutrophils % Seg Neuts % (Manual) Lymphocytes % (Manual) Seg Neutrophils # Seg Neutrophils # Man Lymphocytes # (Manual) Monocytes # (Manual) POC ABG pH ABG pH POC ABG pCO2 POC ABG pO2 ABG pO2 ABG HCO3 ABG Base Excess ABG Hemoglobin Oxyhemoglobin Sodium 147 H Potassium Chloride Carbon Dioxide 33 H BUN Creatinine 0.5 L Glucose 111 H POC Glucose 120 H 116 H Calcium Phosphorus Magnesium Direct Bilirubin AST Alkaline Phosphatase C-Reactive Protein Serum Total Protein Total Protein 5.7 L D Albumin 2.5 L Prealbumin Wxkag-1-Rchnbkrbh Tdnoq-1-Dwimjendz Gamma Globulins PEP Interpretation Triglycerides 230 H Urine pH Urine Creatinine Urine Total Protein Vancomycin Trough Digoxin Crossmatch 10/25/19 10/25/19 10/25/19 04:19 05:31 12:20 WBC RBC 2.69 L Hgb 8.1 L Hct 23.9 L MCHC RDW 17.3 H Plt Count Lymph % (Auto) [place] % (Auto) Lymph # [place] # Seg Neutrophils % Seg Neuts % (Manual) Lymphocytes % (Manual) Seg Neutrophils # Seg Neutrophils # Man Lymphocytes # (Manual) Monocytes # (Manual) POC ABG pH ABG pH POC ABG pCO2 POC ABG pO2 ABG pO2 ABG HCO3 ABG Base Excess ABG Hemoglobin Oxyhemoglobin Sodium Potassium Chloride Carbon Dioxide BUN Creatinine Glucose POC Glucose 126 H 114 H Calcium Phosphorus Magnesium Direct Bilirubin AST Alkaline Phosphatase C-Reactive Protein Serum Total Protein Total Protein Albumin Prealbumin Vnbzt-0-Xlfxvfvim Vxyjh-0-Ojijgzkoj Gamma Globulins PEP Interpretation Triglycerides Urine pH Urine Creatinine Urine Total Protein Vancomycin Trough Digoxin Crossmatch 10/25/19 10/25/19 10/26/19 18:30 23:09 06:15 WBC RBC Hgb Hct MCHC RDW Plt Count Lymph % (Auto) [place] % (Auto) Lymph # [place] # Seg Neutrophils % Seg Neuts % (Manual) Lymphocytes % (Manual) Seg Neutrophils # Seg Neutrophils # Man Lymphocytes # (Manual) Monocytes # (Manual) POC ABG pH ABG pH POC ABG pCO2 POC ABG pO2 ABG pO2 ABG HCO3 ABG Base Excess ABG Hemoglobin Oxyhemoglobin Sodium Potassium 3.5 L Chloride Carbon Dioxide BUN Creatinine 0.5 L Glucose 112 H POC Glucose 121 H 107 H Calcium 8.3 L Phosphorus Magnesium Direct Bilirubin AST Alkaline Phosphatase 148 H C-Reactive Protein Serum Total Protein Total Protein 5.9 L Albumin 2.4 L Prealbumin Uoqsb-5-Wxovawgyk Ziipu-7-Rkqurpypx Gamma Globulins PEP Interpretation Triglycerides Urine pH Urine Creatinine Urine Total Protein Vancomycin Trough Digoxin Crossmatch 10/26/19 10/26/19 10/26/19 06:15 12:21 17:35 WBC RBC Hgb Hct MCHC RDW Plt Count Lymph % (Auto) [place] % (Auto) Lymph # [place] # Seg Neutrophils % Seg Neuts % (Manual) Lymphocytes % (Manual) Seg Neutrophils # Seg Neutrophils # Man Lymphocytes # (Manual) Monocytes # (Manual) POC ABG pH ABG pH POC ABG pCO2 POC ABG pO2 ABG pO2 ABG HCO3 ABG Base Excess ABG Hemoglobin Oxyhemoglobin Sodium Potassium Chloride Carbon Dioxide BUN Creatinine Glucose POC Glucose 134 H 141 H Calcium Phosphorus Magnesium Direct Bilirubin AST Alkaline Phosphatase C-Reactive Protein Serum Total Protein Total Protein Albumin Prealbumin Qdapy-6-Ottatswca Ulnll-2-Jhrztgkbi Gamma Globulins PEP Interpretation Triglycerides 185 H Urine pH Urine Creatinine Urine Total Protein Vancomycin Trough Digoxin Crossmatch 10/26/19 10/27/19 10/27/19 Unknown 04:30 11:33 WBC RBC Hgb Hct MCHC RDW Plt Count Lymph % (Auto) [place] % (Auto) Lymph # [place] # Seg Neutrophils % Seg Neuts % (Manual) Lymphocytes % (Manual) Seg Neutrophils # Seg Neutrophils # Man Lymphocytes # (Manual) Monocytes # (Manual) POC ABG pH ABG pH POC ABG pCO2 POC ABG pO2 ABG pO2 ABG HCO3 ABG Base Excess ABG Hemoglobin Oxyhemoglobin Sodium Potassium 3.2 L Chloride Carbon Dioxide BUN 23 H Creatinine 0.6 L Glucose 130 H POC Glucose 131 H Calcium 7.9 L Phosphorus Magnesium Direct Bilirubin AST Alkaline Phosphatase C-Reactive Protein Serum Total Protein Total Protein Albumin Prealbumin Nocts-3-Fuxgskfev Uqqzi-0-Swopomdpn Gamma Globulins PEP Interpretation Triglycerides Urine pH 9.0 H Urine Creatinine Urine Total Protein Vancomycin Trough Digoxin Crossmatch 10/27/19 10/28/19 10/28/19 17:45 05:25 05:49 WBC RBC 2.85 L Hgb 8.3 L Hct 26.8 L MCHC 31 L RDW 17.4 H Plt Count Lymph % (Auto) 8.9 L [place] % (Auto) 14.3 H Lymph # 0.8 L [place] # 1.3 H Seg Neutrophils % 76.5 H Seg Neuts % (Manual) Lymphocytes % (Manual) Seg Neutrophils # Seg Neutrophils # Man Lymphocytes # (Manual) Monocytes # (Manual) POC ABG pH ABG pH POC ABG pCO2 POC ABG pO2 ABG pO2 ABG HCO3 ABG Base Excess ABG Hemoglobin Oxyhemoglobin Sodium Potassium Chloride Carbon Dioxide BUN Creatinine Glucose POC Glucose 121 H 120 H Calcium Phosphorus Magnesium Direct Bilirubin AST Alkaline Phosphatase C-Reactive Protein Serum Total Protein Total Protein Albumin Prealbumin Uwdmv-4-Vdtwkelmb Uvwag-1-Ppbjhccoq Gamma Globulins PEP Interpretation Triglycerides Urine pH Urine Creatinine Urine Total Protein Vancomycin Trough Digoxin Crossmatch 10/28/19 10/28/19 10/28/19 07:19 12:07 18:21 WBC RBC Hgb Hct MCHC RDW Plt Count Lymph % (Auto) [place] % (Auto) Lymph # [place] # Seg Neutrophils % Seg Neuts % (Manual) Lymphocytes % (Manual) Seg Neutrophils # Seg Neutrophils # Man Lymphocytes # (Manual) Monocytes # (Manual) POC ABG pH ABG pH POC ABG pCO2 POC ABG pO2 ABG pO2 ABG HCO3 ABG Base Excess ABG Hemoglobin Oxyhemoglobin Sodium Potassium Chloride Carbon Dioxide BUN 23 H Creatinine 0.5 L Glucose 129 H POC Glucose 127 H 130 H Calcium 8.0 L Phosphorus Magnesium Direct Bilirubin AST Alkaline Phosphatase C-Reactive Protein Serum Total Protein Total Protein Albumin Prealbumin Ousmm-1-Uptstajgz Fmuaf-8-Muvuomjpp Gamma Globulins PEP Interpretation Triglycerides Urine pH Urine Creatinine Urine Total Protein Vancomycin Trough Digoxin Crossmatch 10/28/19 10/29/19 10/29/19 23:30 05:30 05:30 WBC 11.2 H RBC 3.36 L Hgb 9.7 L Hct 29.4 L MCHC RDW 16.7 H Plt Count Lymph % (Auto) [place] % (Auto) 16.0 H Lymph # [place] # 1.8 H Seg Neutrophils % 70.2 H Seg Neuts % (Manual) Lymphocytes % (Manual) Seg Neutrophils # 7.9 H Seg Neutrophils # Man Lymphocytes # (Manual) Monocytes # (Manual) POC ABG pH ABG pH POC ABG pCO2 POC ABG pO2 ABG pO2 ABG HCO3 ABG Base Excess ABG Hemoglobin Oxyhemoglobin Sodium Potassium Chloride Carbon Dioxide BUN 23 H Creatinine 0.5 L Glucose POC Glucose 130 H Calcium 8.3 L Phosphorus Magnesium Direct Bilirubin AST Alkaline Phosphatase C-Reactive Protein Serum Total Protein Total Protein Albumin Prealbumin Mwbtw-2-Rxtoqwxxs Qfksg-9-Itjctnlah Gamma Globulins PEP Interpretation Triglycerides Urine pH Urine Creatinine Urine Total Protein Vancomycin Trough Digoxin Crossmatch 10/29/19 10/29/19 10/29/19 05:52 13:10 18:02 WBC RBC Hgb Hct MCHC RDW Plt Count Lymph % (Auto) [place] % (Auto) Lymph # [place] # Seg Neutrophils % Seg Neuts % (Manual) Lymphocytes % (Manual) Seg Neutrophils # Seg Neutrophils # Man Lymphocytes # (Manual) Monocytes # (Manual) POC ABG pH ABG pH POC ABG pCO2 POC ABG pO2 ABG pO2 ABG HCO3 ABG Base Excess ABG Hemoglobin Oxyhemoglobin Sodium Potassium Chloride Carbon Dioxide BUN Creatinine Glucose POC Glucose 111 H 140 H 140 H Calcium Phosphorus Magnesium Direct Bilirubin AST Alkaline Phosphatase C-Reactive Protein Serum Total Protein Total Protein Albumin Prealbumin Rsogw-2-Hlcgfnjcz Lkovj-7-Otxuaaqhf Gamma Globulins PEP Interpretation Triglycerides Urine pH Urine Creatinine Urine Total Protein Vancomycin Trough Digoxin Crossmatch 10/29/19 10/30/19 10/30/19 23:58 01:05 05:15 WBC RBC Hgb Hct MCHC RDW Plt Count Lymph % (Auto) [place] % (Auto) Lymph # [place] # Seg Neutrophils % Seg Neuts % (Manual) Lymphocytes % (Manual) Seg Neutrophils # Seg Neutrophils # Man Lymphocytes # (Manual) Monocytes # (Manual) POC ABG pH ABG pH POC ABG pCO2 62.0 H POC ABG pO2 168 H ABG pO2 ABG HCO3 ABG Base Excess ABG Hemoglobin Oxyhemoglobin Sodium 147 H Potassium Chloride 107.8 H Carbon Dioxide BUN 26 H Creatinine 0.5 L Glucose 139 H POC Glucose 161 H Calcium Phosphorus Magnesium 2.40 H Direct Bilirubin AST Alkaline Phosphatase C-Reactive Protein Serum Total Protein Total Protein Albumin Prealbumin Qwhnh-9-Qthmpalwx Rlbav-1-Hwbixnkqn Gamma Globulins PEP Interpretation Triglycerides Urine pH Urine Creatinine Urine Total Protein Vancomycin Trough Digoxin Crossmatch 10/30/19 10/30/19 10/30/19 05:15 06:32 09:44 WBC 13.8 H RBC 3.59 L Hgb 10.1 L Hct 32.4 L MCHC 31 L RDW 17.4 H Plt Count Lymph % (Auto) 11.2 L [place] % (Auto) 13.6 H Lymph # [place] # 1.9 H Seg Neutrophils % 75.1 H Seg Neuts % (Manual) Lymphocytes % (Manual) Seg Neutrophils # 10.4 H Seg Neutrophils # Man Lymphocytes # (Manual) Monocytes # (Manual) POC ABG pH ABG pH POC ABG pCO2 51.7 H POC ABG pO2 111 H ABG pO2 ABG HCO3 ABG Base Excess ABG Hemoglobin Oxyhemoglobin Sodium Potassium Chloride Carbon Dioxide BUN Creatinine Glucose POC Glucose 141 H Calcium Phosphorus Magnesium Direct Bilirubin AST Alkaline Phosphatase C-Reactive Protein Serum Total Protein Total Protein Albumin Prealbumin Egxxm-3-Jzamclvzw Hpcly-8-Ocvgdgbli Gamma Globulins PEP Interpretation Triglycerides Urine pH Urine Creatinine Urine Total Protein Vancomycin Trough Digoxin Crossmatch 10/30/19 10/31/19 10/31/19 18:10 04:18 04:18 WBC 11.7 H RBC 3.11 L Hgb 9.0 L Hct 27.9 L MCHC RDW 17.1 H Plt Count Lymph % (Auto) [place] % (Auto) Lymph # [place] # Seg Neutrophils % Seg Neuts % (Manual) Lymphocytes % (Manual) Seg Neutrophils # Seg Neutrophils # Man Lymphocytes # (Manual) Monocytes # (Manual) POC ABG pH ABG pH POC ABG pCO2 POC ABG pO2 ABG pO2 ABG HCO3 ABG Base Excess ABG Hemoglobin Oxyhemoglobin Sodium 148 H Potassium Chloride 108.7 H Carbon Dioxide BUN 37 H Creatinine 0.7 L Glucose 102 H POC Glucose 131 H Calcium Phosphorus Magnesium Direct Bilirubin AST Alkaline Phosphatase C-Reactive Protein Serum Total Protein Total Protein Albumin Prealbumin Uvtfl-1-Ksvgxlhso Vjfvx-1-Pmmutubez Gamma Globulins PEP Interpretation Triglycerides Urine pH Urine Creatinine Urine Total Protein Vancomycin Trough Digoxin Crossmatch 10/31/19 10/31/19 10/31/19 11:32 12:55 18:10 WBC RBC Hgb Hct MCHC RDW Plt Count Lymph % (Auto) [place] % (Auto) Lymph # [place] # Seg Neutrophils % Seg Neuts % (Manual) Lymphocytes % (Manual) Seg Neutrophils # Seg Neutrophils # Man Lymphocytes # (Manual) Monocytes # (Manual) POC ABG pH ABG pH POC ABG pCO2 57.9 H POC ABG pO2 135 H ABG pO2 ABG HCO3 ABG Base Excess ABG Hemoglobin Oxyhemoglobin Sodium Potassium Chloride Carbon Dioxide BUN Creatinine Glucose POC Glucose 120 H Calcium Phosphorus Magnesium Direct Bilirubin AST Alkaline Phosphatase C-Reactive Protein Serum Total Protein Total Protein Albumin Prealbumin Hrfli-2-Swxcwxcks Agxzn-2-Spjtbhgcm Gamma Globulins PEP Interpretation Triglycerides Urine pH Urine Creatinine Urine Total Protein Vancomycin Trough 41.7 H Digoxin Crossmatch 10/31/19 11/01/19 11/01/19 23:08 05:30 05:30 WBC 14.6 H RBC 3.13 L Hgb 8.9 L Hct 27.7 L MCHC RDW 17.0 H Plt Count Lymph % (Auto) [place] % (Auto) Lymph # [place] # Seg Neutrophils % Seg Neuts % (Manual) Lymphocytes % (Manual) Seg Neutrophils # Seg Neutrophils # Man Lymphocytes # (Manual) Monocytes # (Manual) POC ABG pH ABG pH POC ABG pCO2 POC ABG pO2 ABG pO2 ABG HCO3 ABG Base Excess ABG Hemoglobin Oxyhemoglobin Sodium 149 H Potassium Chloride 109.0 H Carbon Dioxide BUN 26 H Creatinine 0.7 L Glucose 129 H POC Glucose 109 H Calcium Phosphorus Magnesium Direct Bilirubin AST Alkaline Phosphatase C-Reactive Protein Serum Total Protein Total Protein Albumin Prealbumin Rdxfd-4-Ippwctwwc Igyrz-4-Jrmvrkcqs Gamma Globulins PEP Interpretation Triglycerides Urine pH Urine Creatinine Urine Total Protein Vancomycin Trough Digoxin Crossmatch 11/01/19 11/01/19 11/01/19 06:09 06:10 11:52 WBC RBC Hgb Hct MCHC RDW Plt Count Lymph % (Auto) [place] % (Auto) Lymph # [place] # Seg Neutrophils % Seg Neuts % (Manual) Lymphocytes % (Manual) Seg Neutrophils # Seg Neutrophils # Man Lymphocytes # (Manual) Monocytes # (Manual) POC ABG pH ABG pH POC ABG pCO2 51.3 H POC ABG pO2 71 L ABG pO2 ABG HCO3 ABG Base Excess ABG Hemoglobin Oxyhemoglobin Sodium Potassium Chloride Carbon Dioxide BUN Creatinine Glucose POC Glucose 113 H 106 H Calcium Phosphorus Magnesium Direct Bilirubin AST Alkaline Phosphatase C-Reactive Protein Serum Total Protein Total Protein Albumin Prealbumin Liqfx-3-Pkhwfqqjp Rbkch-1-Mnoaxhamb Gamma Globulins PEP Interpretation Triglycerides Urine pH Urine Creatinine Urine Total Protein Vancomycin Trough Digoxin Crossmatch 11/01/19 11/02/19 11/02/19 18:18 03:40 03:40 WBC RBC 2.36 L Hgb 7.2 L Hct 20.8 L D MCHC 35 H RDW 16.8 H Plt Count Lymph % (Auto) [place] % (Auto) Lymph # [place] # Seg Neutrophils % Seg Neuts % (Manual) Lymphocytes % (Manual) Seg Neutrophils # Seg Neutrophils # Man Lymphocytes # (Manual) Monocytes # (Manual) POC ABG pH ABG pH POC ABG pCO2 POC ABG pO2 ABG pO2 ABG HCO3 ABG Base Excess ABG Hemoglobin Oxyhemoglobin Sodium 157 H D Potassium 3.0 L D Chloride 117.2 H Carbon Dioxide BUN 23 H Creatinine 0.6 L Glucose 101 H POC Glucose 120 H Calcium 6.4 L D Phosphorus Magnesium Direct Bilirubin AST Alkaline Phosphatase C-Reactive Protein Serum Total Protein Total Protein Albumin Prealbumin Sccud-0-Skulerztq Nltif-7-Gsmltxdjy Gamma Globulins PEP Interpretation Triglycerides Urine pH Urine Creatinine Urine Total Protein Vancomycin Trough Digoxin Crossmatch 11/02/19 11/02/19 11/02/19 04:48 05:30 12:43 WBC RBC Hgb Hct MCHC RDW Plt Count Lymph % (Auto) [place] % (Auto) Lymph # [place] # Seg Neutrophils % Seg Neuts % (Manual) Lymphocytes % (Manual) Seg Neutrophils # Seg Neutrophils # Man Lymphocytes # (Manual) Monocytes # (Manual) POC ABG pH ABG pH POC ABG pCO2 50.1 H POC ABG pO2 74 L ABG pO2 ABG HCO3 ABG Base Excess ABG Hemoglobin Oxyhemoglobin Sodium 149 H D Potassium Chloride 110.0 H Carbon Dioxide BUN 23 H Creatinine 0.6 L Glucose POC Glucose 109 H Calcium 8.1 L D Phosphorus Magnesium 2.40 H Direct Bilirubin AST Alkaline Phosphatase C-Reactive Protein Serum Total Protein Total Protein Albumin Prealbumin Dczgu-5-Qewlenhio Uebix-8-Xightrmwd Gamma Globulins PEP Interpretation Triglycerides Urine pH Urine Creatinine Urine Total Protein Vancomycin Trough Digoxin Crossmatch 11/03/19 11/03/19 11/03/19 03:42 03:42 04:13 WBC RBC 2.93 L Hgb 8.5 L Hct 25.8 L MCHC RDW 16.9 H Plt Count Lymph % (Auto) Douglas % (Auto) Lymph # Douglas # Seg Neutrophils % Seg Neuts % (Manual) Lymphocytes % (Manual) Seg Neutrophils # Seg Neutrophils # Man Lymphocytes # (Manual) Monocytes # (Manual) POC ABG pH 7.540 H ABG pH POC ABG pCO2 POC ABG pO2 51 L ABG pO2 ABG HCO3 ABG Base Excess ABG Hemoglobin Oxyhemoglobin Sodium 147 H Potassium 3.5 L D Chloride 108.6 H Carbon Dioxide BUN Creatinine 0.6 L Glucose 109 H POC Glucose Calcium 8.3 L Phosphorus Magnesium Direct Bilirubin AST Alkaline Phosphatase C-Reactive Protein Serum Total Protein Total Protein Albumin Prealbumin Yremz-2-Mkyqtesrr Lmsgk-6-Ubirullqg Gamma Globulins PEP Interpretation Triglycerides Urine pH Urine Creatinine Urine Total Protein Vancomycin Trough Digoxin Crossmatch 11/03/19 11/03/19 11/03/19 04:28 12:04 23:02 WBC RBC Hgb Hct MCHC RDW Plt Count Lymph % (Auto) Douglas % (Auto) Lymph # Douglas # Seg Neutrophils % Seg Neuts % (Manual) Lymphocytes % (Manual) Seg Neutrophils # Seg Neutrophils # Man Lymphocytes # (Manual) Monocytes # (Manual) POC ABG pH ABG pH POC ABG pCO2 45.4 H POC ABG pO2 ABG pO2 ABG HCO3 ABG Base Excess ABG Hemoglobin Oxyhemoglobin Sodium Potassium Chloride Carbon Dioxide BUN Creatinine Glucose POC Glucose 109 H 111 H Calcium Phosphorus Magnesium Direct Bilirubin AST Alkaline Phosphatase C-Reactive Protein Serum Total Protein Total Protein Albumin Prealbumin Ohwsg-3-Ztszozayu Ouufp-5-Ehpvjhtgt Gamma Globulins PEP Interpretation Triglycerides Urine pH Urine Creatinine Urine Total Protein Vancomycin Trough Digoxin Crossmatch 11/04/19 11/04/19 11/04/19 05:00 05:00 05:19 WBC RBC 2.96 L Hgb 8.6 L Hct 25.5 L MCHC RDW 16.7 H Plt Count Lymph % (Auto) Douglas % (Auto) Lymph # Douglas # Seg Neutrophils % Seg Neuts % (Manual) Lymphocytes % (Manual) Seg Neutrophils # Seg Neutrophils # Man Lymphocytes # (Manual) Monocytes # (Manual) POC ABG pH ABG pH POC ABG pCO2 POC ABG pO2 ABG pO2 ABG HCO3 ABG Base Excess ABG Hemoglobin Oxyhemoglobin Sodium Potassium 3.5 L Chloride Carbon Dioxide BUN Creatinine 0.5 L Glucose 111 H POC Glucose 106 H Calcium 8.1 L Phosphorus Magnesium Direct Bilirubin AST Alkaline Phosphatase C-Reactive Protein Serum Total Protein Total Protein Albumin Prealbumin Jiakf-9-Nxlowbazz Xyino-8-Lviidwsbj Gamma Globulins PEP Interpretation Triglycerides Urine pH Urine Creatinine Urine Total Protein Vancomycin Trough Digoxin Crossmatch
--- NOTE | 2019-11-04 11:45 | Progress Note ---
Assessment and Plan (1) Dehiscence of closure of fascia, superficial or muscular Current Visit: No Status: Acute Qualifiers: Encounter type: initial encounter Qualified Code(s): T81.32XA - Disruption of internal operation (surgical) wound, not elsewhere classified, initial encounter Plan to address problem: Pt stable. s/p ex lap with closure of abdominal wall and wound vac placement (10/05) - POD#27; s/p Re-exploration, washout, transection of colon, Abthera placement - 10/13 - POD#19; s/p abd washout, partial omentectomy, partial colectomy with colostomy - 10/16 POD#17. s/p abd washout, feeding tube placement, AbThera placement - 10/19 - POD#14; Abdominal washout and closure - 10/22 - POD#12 Patient appears stable. WBC normal x 3 days Rec: 1) Neuro - self extubated. Awake and in no distress. Confused at times but easily redirectable 2) CV - BP normal and HR stable 3) Resp - on 2 L NC with stable respiratory status thus far. Incentive spirometry encouraged. Small bore CT on left, currently on -[id number] suction via pleurevac - no leak. Mgmt per ICU team. 4) GI - continue TF via J port. GI PPx. Wound care to right abdominal wound from previous drain Sump drains - Right drain was accidentally pulled out (10/30). Left one is still functioning. New small bore catheter placed 10/30 - moderate output, [place] brown in color - stool. Continue both to wall suction - continuous. Wound Vac - wound looked good on last check. continue wound vac. Ostomy - functioning now. G port of GJ tube- appearance is clear but output still 500cc last shift. Instructed RN to clamp if output becomes pink tinged. Will continue to LIWS for now 5) - BUN/Cr stable. Monitor Na 6) ID - Abx per ID. Enterococcus on cultures. If patient has worsening labs/vitals, then rescan and place additional drains as appropriate. 7) Nutrition - Tube feeds at goal. 8) DVT prophylaxis - SCDs. Lovenox 9) Family - at bedside and plan discussed with her. All questions answered. 10) PT - will need rehab. Note: Spoke with [facility] surgeon about possible transfer earlier this week. They reviewed the notes that were sent and we discussed the case. They felt that they had nothing else to offer. They agreed with our management. Also agreed that another exploration should not be done. If needed, additional drains can be placed. They did suggest putting a Malecot tube in the rectum to decompress that area. (That was done this morning). This conversation was communicated to the . Discussed with Dr. Negro. Please call with questions. Subjective Date of service: 11/04/19 Narrative: Pt seen and examined. Self extubated this am. No complaints. No overnight events. No fevers overnight. Per RN this am, there was some leakage around L sump drain and bloody drainage from G port of GJ tube. Objective Vital Signs - 12hr 11/04/19 11/04/19 11/04/19 00:00 00:17 00:30 Temperature Pulse Rate 79 82 82 Pulse Rate [ Anterior Bilateral Throughout] Pulse Rate [ 86 From Monitor] Respiratory 29 H 28 H Rate Respiratory Rate [Anterior Bilateral Throughout] Blood Pressure 137/62 137/62 129/69 O2 Sat by Pulse 95 98 97 Oximetry 11/04/19 11/04/19 11/04/19 01:00 01:30 02:00 Temperature Pulse Rate 82 82 82 Pulse Rate [ Anterior Bilateral Throughout] Pulse Rate [ From Monitor] Respiratory 25 H 30 H 31 H Rate Respiratory Rate [Anterior Bilateral Throughout] Blood Pressure 129/69 152/68 137/57 O2 Sat by Pulse 95 94 93 Oximetry 11/04/19 11/04/19 11/04/19 02:30 03:00 03:30 Temperature Pulse Rate 86 82 87 Pulse Rate [ Anterior Bilateral Throughout] Pulse Rate [ From Monitor] Respiratory 32 H 24 22 Rate Respiratory Rate [Anterior Bilateral Throughout] Blood Pressure 137/57 161/71 180/89 O2 Sat by Pulse 94 96 96 Oximetry 11/04/19 11/04/19 11/04/19 03:31 04:00 04:04 Temperature 99.6 F Pulse Rate 90 Pulse Rate [ 85 Anterior Bilateral Throughout] Pulse Rate [ 92 H From Monitor] Respiratory 18 Rate Respiratory 24 Rate [Anterior Bilateral Throughout] Blood Pressure 180/89 O2 Sat by Pulse 99 Oximetry 11/04/19 11/04/19 11/04/19 04:30 05:00 05:30 Temperature Pulse Rate 87 87 85 Pulse Rate [ Anterior Bilateral Throughout] Pulse Rate [ From Monitor] Respiratory 22 37 H 38 H Rate Respiratory Rate [Anterior Bilateral Throughout] Blood Pressure 166/76 172/75 155/74 O2 Sat by Pulse 96 93 94 Oximetry 11/04/19 11/04/19 11/04/19 06:00 06:30 06:31 Temperature Pulse Rate 85 82 87 Pulse Rate [ Anterior Bilateral Throughout] Pulse Rate [ From Monitor] Respiratory 35 H 32 H Rate Respiratory Rate [Anterior Bilateral Throughout] Blood Pressure 157/82 172/75 172/75 O2 Sat by Pulse 96 95 Oximetry 11/04/19 11/04/19 11/04/19 07:00 07:07 07:30 Temperature Pulse Rate 80 78 Pulse Rate [ 77 Anterior Bilateral Throughout] Pulse Rate [ From Monitor] Respiratory 36 H 37 H Rate Respiratory 33 H Rate [Anterior Bilateral Throughout] Blood Pressure 172/75 134/71 O2 Sat by Pulse 94 38 L 96 Oximetry 11/04/19 11/04/19 11/04/19 08:00 08:30 09:00 Temperature 97 F L Pulse Rate 86 84 85 Pulse Rate [ Anterior Bilateral Throughout] Pulse Rate [ 82 From Monitor] Respiratory 30 H 35 H 37 H Rate Respiratory Rate [Anterior Bilateral Throughout] Blood Pressure 159/80 156/78 151/77 O2 Sat by Pulse 98 91 94 Oximetry 11/04/19 11/04/19 11/04/19 09:27 09:30 10:00 Temperature Pulse Rate 84 86 86 Pulse Rate [ Anterior Bilateral Throughout] Pulse Rate [ From Monitor] Respiratory 35 H 41 H Rate Respiratory Rate [Anterior Bilateral Throughout] Blood Pressure 151/77 140/68 140/68 O2 Sat by Pulse 94 96 Oximetry 11/04/19 11/04/19 10:30 11:00 Temperature Pulse Rate 83 81 Pulse Rate [ Anterior Bilateral Throughout] Pulse Rate [ From Monitor] Respiratory 34 H 32 H Rate Respiratory Rate [Anterior Bilateral Throughout] Blood Pressure 133/79 166/76 O2 Sat by Pulse 95 95 Oximetry - General physical appearance Narrative Exam: Gen: Awake and alert. Easily redirected. No acute distress ENT: No scleral icterus CV: S1, S2+ Resp: even and unlabored. L chest tube in place - dressing c/d/i. No leak, on - 20 cm H20 suction via pleurevac Abd: soft, NT, ND. Wound vac in place with good seal, no leak, scant serous fluid in canister. R abdominal wound (at previous drain site) with some yellow slough, easily removed - clean base, packed with one piece of mesalt and covered with foam dressing. Skin abrasions to right side of abdomen clean, covered with foam dressings. GJ tube in place with clear drainage from G port (no bleeding), and TF running via J port. The bumper is at 6cm with some pressure on skin causing pressure wound, Telfa placed between skin and bumper to help protect skin. Ostomy pink with brown liquid stool in bag - no leakage. L sump drain in place, flushed with 10cc of saline and functioning well. No further drainage from around the tube, dressing c/d/i. L sided percutaneous drain in place and functioning well. [place] drainage from both tubes. Ext: Mild edema - de jesus with clear yellow urine - Labs 11/04/19 05:00 11/04/19 05:00 Diabetes panel 11/04/19 Range/Units 05:00 Sodium 143 (137-145) mmol/L Potassium 3.5 L (3.6-5.0) mmol/L Chloride 104.7 (98-107) mmol/L Carbon Dioxide 27 (22-30) mmol/L BUN 14 (9-20) mg/dL Creatinine 0.5 L (0.8-1.5) mg/dL Glucose 111 H (75-100) mg/dL Calcium 8.1 L (8.4-10.2) mg/dL Calcium panel 11/04/19 Range/Units 05:00 Calcium 8.1 L (8.4-10.2) mg/dL Pituitary panel 11/04/19 Range/Units 05:00 Sodium 143 (137-145) mmol/L Potassium 3.5 L (3.6-5.0) mmol/L Chloride 104.7 (98-107) mmol/L Carbon Dioxide 27 (22-30) mmol/L BUN 14 (9-20) mg/dL Creatinine 0.5 L (0.8-1.5) mg/dL Glucose 111 H (75-100) mg/dL Calcium 8.1 L (8.4-10.2) mg/dL Adrenal panel 11/04/19 Range/Units 05:00 Sodium 143 (137-145) mmol/L Potassium 3.5 L (3.6-5.0) mmol/L Chloride 104.7 (98-107) mmol/L Carbon Dioxide 27 (22-30) mmol/L BUN 14 (9-20) mg/dL Creatinine 0.5 L (0.8-1.5) mg/dL Glucose 111 H (75-100) mg/dL Calcium 8.1 L (8.4-10.2) mg/dL
[2019-11-04] MEDS ORDERED: POTASSIUM CHLORIDE 20 MEQ PACKET FEEDTUBE SCH (12:06)
[2019-11-04] MEDS: HYDROmorphone 2 MG/1 ML INJ IV PRN ×2 (12:30→20:55)
[2019-11-04] MEDS: DEXTROSE 5% IN WATER 1,000 ML IV SCH (20:50)
[2019-11-05] MEDS: INSULIN LISPRO 100 UNIT/ML SUB-Q SCH ×4 (00:49→18:19)
[2019-11-05] MEDS: IPRATROPIUM/ALBUTEROL SULFATE 3 ML AMPUL.NEB IH SCH ×4 (02:27→19:52)
[2019-11-05] MEDS: MEROPENEM/NS 1 GRAM/100 ML 1 GRAM/100 ML BAG IV SCH ×4 (03:32→18:16)
[2019-11-05 05:44] LABS: Hematocrit 25.5 % (35.5-45.6); Hemoglobin 8.5 gm/dl (11.8-15.2); Mean Corpuscular HGB Conc 33 % (32-34); Mean Corpuscular Volume 86 fl (84-94); Platelet Count 358 K/mm3 (140-440); Red Blood Count 2.98 M/mm3 (3.65-5.03); Red Cell Distribution Width 16.6 % (13.2-15.2)
[2019-11-05 06:00] LABS: BUN/Creatinine Ratio 30; Blood Urea Nitrogen 12 mg/dL (9-20); Calcium 8.2 mg/dL (8.4-10.2); Hemolysis Index 2
[2019-11-05] MEDS: HYDROmorphone 2 MG/1 ML INJ IV PRN ×3 (08:06→23:17)
--- NOTE | 2019-11-05 08:16 | Progress Note ---
Assessment and Plan - Patient Problems (1) Dehiscence of closure of fascia, superficial or muscular Current Visit: No Status: Acute Qualifiers: Encounter type: initial encounter Qualified Code(s): T81.32XA - Disruption of internal operation (surgical) wound, not elsewhere classified, initial encounter Plan to address problem: Pt stable. s/p ex lap with closure of abdominal wall and wound vac placement (10/05) - POD#28; s/p Re-exploration, washout, transection of colon, Abthera placement - 10/13 - POD#120; s/p abd washout, partial omentectomy, partial colectomy with colostomy - 10/16 POD#18. s/p abd washout, feeding tube placement, AbThera placement - 10/19 - POD#15; Abdominal washout and closure - 10/22 - POD#13 Patient appears better. WBC normal. Temp normal this AM. Rec: 1) Neuro - self-extubated yesterday. Mentating appropriately. 2) CV - BP normal today 3) Resp - On NC. Small bore CT on left. Mgmt per ICU team. 4) GI - Ostomy looks good. Functioning now. Sump drains - Right drain was accidentally pulled out (10/30). Left one is still functioning. New small bore catheter placed 10/30 - moderate output after drain was stripped. Appears like stool. Plan to connect both to wall suction - continuous. Output trending down. Wound Vac - wound looked good on last check. continue wound vac. Ostomy - functioning now. NGT - appearance looks more gastric now. Will try clamping tube and checking residuals q4h. 5) - BUN/Cr stable. 6) ID - Abx per ID. Enterococcus on cultures. If patient has worsening labs/vitals, then rescan and place additional drains as appropriate. 7) Nutrition - Tube feeds at goal. Would consider Speech therapy eval again for swallowing. 8) DVT prophylaxis - SCDs. Lovenox 9) Family -no family at bedside. 10) PT - will need rehab. Note: Spoke with [facility] surgeon on 11/01/19 about possible transfer. They reviewed the notes that were sent and we discussed the case. They felt that they had nothing else to offer. They agreed with our management. Also agreed that another exploration should not be done. If needed, additional drains can be placed. They did suggest putting a Malecot tube in the rectum to decompress that area. (That was done this morning). This conversation was communicated to the . Please call with questions. Subjective Date of service: 11/05/19 Patient Reports: Positive: no new complaints Objective Vital Signs - 12hr 11/04/19 11/04/19 11/04/19 20:25 20:30 21:00 Temperature Pulse Rate 89 91 H Pulse Rate [ 88 Anterior Bilateral Throughout] Pulse Rate [ From Monitor] Respiratory 36 H 32 H Rate Respiratory 27 H Rate [Anterior Bilateral Throughout] Blood Pressure 152/85 160/79 O2 Sat by Pulse 90 Oximetry 11/04/19 11/04/19 11/04/19 21:30 22:00 22:30 Temperature Pulse Rate 74 73 74 Pulse Rate [ Anterior Bilateral Throughout] Pulse Rate [ From Monitor] Respiratory 27 H 25 H 24 Rate Respiratory Rate [Anterior Bilateral Throughout] Blood Pressure 136/65 130/63 134/62 O2 Sat by Pulse 93 91 93 Oximetry 11/04/19 11/04/19 11/04/19 23:00 23:04 23:30 Temperature Pulse Rate 79 77 79 Pulse Rate [ Anterior Bilateral Throughout] Pulse Rate [ From Monitor] Respiratory 27 H 26 H 28 H Rate Respiratory Rate [Anterior Bilateral Throughout] Blood Pressure 144/70 144/70 O2 Sat by Pulse 95 95 95 Oximetry 11/05/19 11/05/19 11/05/19 00:00 00:30 01:00 Temperature 97.9 F Pulse Rate 80 81 85 Pulse Rate [ Anterior Bilateral Throughout] Pulse Rate [ 76 From Monitor] Respiratory 27 H 28 H 32 H Rate Respiratory Rate [Anterior Bilateral Throughout] Blood Pressure 154/76 157/72 158/74 O2 Sat by Pulse 94 92 94 Oximetry 11/05/19 11/05/19 11/05/19 01:30 02:00 02:30 Temperature Pulse Rate 82 81 84 Pulse Rate [ 85 Anterior Bilateral Throughout] Pulse Rate [ From Monitor] Respiratory 31 H 31 H 32 H Rate Respiratory 28 H Rate [Anterior Bilateral Throughout] Blood Pressure 152/73 149/77 168/75 O2 Sat by Pulse 92 94 92 Oximetry 11/05/19 11/05/19 11/05/19 03:00 03:30 04:00 Temperature 98.6 F Pulse Rate 85 84 78 Pulse Rate [ Anterior Bilateral Throughout] Pulse Rate [ From Monitor] Respiratory 34 H 32 H Rate Respiratory Rate [Anterior Bilateral Throughout] Blood Pressure 153/76 153/76 O2 Sat by Pulse 88 93 Oximetry 11/05/19 11/05/19 11/05/19 04:04 04:30 05:00 Temperature Pulse Rate 84 82 86 Pulse Rate [ Anterior Bilateral Throughout] Pulse Rate [ From Monitor] Respiratory 13 19 18 Rate Respiratory Rate [Anterior Bilateral Throughout] Blood Pressure 149/69 137/70 144/76 O2 Sat by Pulse 92 90 Oximetry 11/05/19 11/05/19 11/05/19 05:30 05:32 06:00 Temperature Pulse Rate 86 Pulse Rate [ Anterior Bilateral Throughout] Pulse Rate [ 78 From Monitor] Respiratory 22 18 Rate Respiratory Rate [Anterior Bilateral Throughout] Blood Pressure 159/81 148/81 O2 Sat by Pulse 95 96 94 Oximetry 11/05/19 11/05/19 06:30 07:00 Temperature Pulse Rate 83 81 Pulse Rate [ Anterior Bilateral Throughout] Pulse Rate [ From Monitor] Respiratory 31 H 29 H Rate Respiratory Rate [Anterior Bilateral Throughout] Blood Pressure 160/75 143/75 O2 Sat by Pulse 93 94 Oximetry - General physical appearance no distress, no pain, other (voice is stronger. appropriate conversation) - Respiratory normal expansion, normal respiratory effort - Abdomen soft, other (left drains with light brown drainage. g-tube with gastric drainage. ) - Psychiatric speech is normal - Labs 11/05/19 04:19 11/05/19 04:19 Diabetes panel 11/05/19 Range/Units 04:19 Sodium 140 (137-145) mmol/L Potassium 3.4 L (3.6-5.0) mmol/L Chloride 101.7 (98-107) mmol/L Carbon Dioxide 27 (22-30) mmol/L BUN 12 (9-20) mg/dL Creatinine 0.4 L (0.8-1.5) mg/dL Glucose 106 H (75-100) mg/dL Calcium 8.2 L (8.4-10.2) mg/dL Calcium panel 11/05/19 Range/Units 04:19 Calcium 8.2 L (8.4-10.2) mg/dL Pituitary panel 11/05/19 Range/Units 04:19 Sodium 140 (137-145) mmol/L Potassium 3.4 L (3.6-5.0) mmol/L Chloride 101.7 (98-107) mmol/L Carbon Dioxide 27 (22-30) mmol/L BUN 12 (9-20) mg/dL Creatinine 0.4 L (0.8-1.5) mg/dL Glucose 106 H (75-100) mg/dL Calcium 8.2 L (8.4-10.2) mg/dL Adrenal panel 11/05/19 Range/Units 04:19 Sodium 140 (137-145) mmol/L Potassium 3.4 L (3.6-5.0) mmol/L Chloride 101.7 (98-107) mmol/L Carbon Dioxide 27 (22-30) mmol/L BUN 12 (9-20) mg/dL Creatinine 0.4 L (0.8-1.5) mg/dL Glucose 106 H (75-100) mg/dL Calcium 8.2 L (8.4-10.2) mg/dL
[2019-11-05] MEDS: ARFORMOTEROL 15 MCG/2 ML NEBU IH SCH ×2 (08:41→19:52)
[2019-11-05] MEDS: BUDESONIDE 0.5 MG/2 ML NEBU IH SCH ×2 (08:41→19:52)
[2019-11-05] MEDS: DEXTROSE 5% IN WATER 1,000 ML IV SCH ×2 (08:59→21:42)
--- NOTE | 2019-11-05 09:00 | Progress Note ---
Assessment and Plan Assessment and plan: Sepsis, recurrent. Patient with new fevers that have been persistent. ID restarted antibiotics. Etiology likely secondary to fluid collection/abscess in the abdomen and anastomotic leak. Follow-up blood culture, fungal blood culture, UA, urine culture, CXR ordered. Whitfield was removed and urinalysis sent. Given recent prolonged exposure to abx and TPN, at risk of MDR infections, ID started empiric Meropenem and Micafungin Dehiscence of closure of fascia * Went to OR for ex lap with closure of abdominal wall and wound vac placement (10/05) * Continued to decline with possible Air vs fluid, 10/10/19 IR went in and placed two drains, Noted to have possible fecal material * Returned to the OR 10/13/19 due to concern for intra-abdominal infection and was found to have with heavy contamination of abdomen patent had disruption of bowel anastomosis, abdominal washout, abthera placement and colon stapled transection and left bowel enterotomy from anastomosis completely open * Returned to OR on 10/16/19 for abdominal washout, Partial Omentectomy, Partial Colectomy, Colostomy Creation and AbThera Placement * Abdominal washout and closure - 10/22 * cont wound care * * Acute Respiratory failure with hypoxia -Extubated 10/25/19 - Re-intubated 10/30 -Patient pulled out ET tube morning of 11/04, now on Oxygen by [place] -Milk Receiver following Sepsis On Merrem, Mifungin ID Physician following right sump drain fell out Surgeon following Left pneumothorax s/p chest tube placed 10/30 Left lower lobe pneumonia -Continue IV antibiotic -CTA chest showed left lower lobe consolidation with pleural effusion GUILLERMO on CKD -due to ATN due to sepsis -Improving, will monitor -SPEP and UPEP pending -No hydronephrosis on CT -Whitfield in place, monitor I/O's Severe Metabolic acidosis -Improved Acute Toxic Metabolic Encephalopathy/Delirium Tremens -Started on CIWA protocol due to hx of ETOH abuse, 6packs a day -Head CT scan negative for acute findings Acute blood loss anemia -H/H stable -Continue to monitor H&H and transfuse for hb<7 SVT, Atrial fib/flutter with RVR -treated with adenosine x1 -off amiodarone and cardizem drip. On oral amiodarone and IV Lopressor. -HR currently controlled -Cardiology following Hypotension -Off esmolol drip -s/p IV fluid boluses, BP stable Hypophosphatemia -will monitor level Hypernatremia start D5W Hypokalemia Replace iv Hx of Hypertension -Stable Hyperlipidemia -stable Atypical chest pain -probably secondary to pneumonitis -troponin levels neg Hx of [place]/CAD -s/p PCI of the circumflex and second vessel POBA of the distal LAD occlusion. Left ventricle fraction of 45-50%. Morbid obesity with BMI of 43.4 -Lifestyle modification recommended COPD -Stable -cont neb tx Moderate Protein calorie malnutrition secondary to surgery -On TPN -Nutrition following Tobacco abuse -Cessation recommended Morbid obesity with BMI of 43.4 -Lifestyle modification recommended DVT and GI ppx: Lovenox/PPI Disp: Prognosis guarded The high probability of a clinically significant, sudden or life threatening deterioration of the [respiratory] system(s) required my full and direct attention, intervention and personal management. The aggregate critical care time was [33] minutes. This time is in addition to time spent performing reported procedures but includes the following: [x] Data Review and interpretation [x] Patient assessment and monitoring of vital signs [x] Documentation [x] Medication orders and management History Interval history: Re-intubated 10/30 patient pulled out ET morning about 4:30 am on 11/04, now on Oxygen by [place] Still having fevers Hospitalist Physical - Physical exam Narrative exam: Gen: Not in acute distress, On Oxygen by [place] HEENT: Normocephalic, atraumatic Neck: supple, no JVD Heart: S1 and S2 reg, no murmurs, rubs or gallop Lungs: Chest tube on left, Abd: soft, NT, ostomy, wound vac, left drain Ext: No edema, no clubbing no cyanosis Neuro: lethargic, opens eyes, follows commands - Constitutional Vitals: Temp Pulse Resp BP Pulse Ox 98.6 F 79 20 143/75 96 11/05/19 04:00 11/05/19 08:00 11/05/19 08:00 11/05/19 07:00 11/05/19 08:42 General appearance: Present: no acute distress, obese Results - Labs CBC & Chem 7: 11/05/19 04:19 11/05/19 04:19 Labs: Laboratory Last Values WBC 12.4 K/mm3 (4.5-11.0) H 11/05/19 04:19 RBC 2.98 M/mm3 (3.65-5.03) L 11/05/19 04:19 Hgb 8.5 gm/dl (11.8-15.2) L 11/05/19 04:19 Hct 25.5 % (35.5-45.6) L 11/05/19 04:19 MCV 86 fl (84-94) 11/05/19 04:19 MCH 28 pg (28-32) 11/05/19 04:19 MCHC 33 % (32-34) 11/05/19 04:19 RDW 16.6 % (13.2-15.2) H 11/05/19 04:19 Plt Count 358 K/mm3 (140-440) 11/05/19 04:19 Lymph % (Auto) 11.2 % (13.4-35.0) L 10/30/19 05:15 [place] % (Auto) 13.6 % (0.0-7.3) H 10/30/19 05:15 Eos % (Auto) 0.0 % (0.0-4.3) 10/30/19 05:15 Baso % (Auto) 0.1 % (0.0-1.8) 10/30/19 05:15 Lymph # 1.5 K/mm3 (1.2-5.4) 10/30/19 05:15 [place] # 1.9 K/mm3 (0.0-0.8) H 10/30/19 05:15 Eos # 0.0 K/mm3 (0.0-0.4) 10/30/19 05:15 Baso # 0.0 K/mm3 (0.0-0.1) 10/30/19 05:15 Add Manual Diff Complete 10/16/19 09:20 Total Counted 100 10/16/19 09:20 Seg Neutrophils % 75.1 % (40.0-70.0) H 10/30/19 05:15 Seg Neuts % (Manual) 79.0 % (40.0-70.0) H 10/16/19 09:20 Band Neutrophils % 12.0 % 10/16/19 09:20 Lymphocytes % (Manual) 4.0 % (13.4-35.0) L 10/16/19 09:20 Reactive Lymphs % (Man) 0 % 10/16/19 09:20 Monocytes % (Manual) 2.0 % (0.0-7.3) 10/16/19 09:20 Eosinophils % (Manual) 0 % (0.0-4.3) 10/16/19 09:20 Basophils % (Manual) 0 % (0.0-1.8) 10/16/19 09:20 Metamyelocytes % 2.0 % 10/16/19 09:20 Myelocytes % 1.0 % 10/16/19 09:20 Promyelocytes % 0 % 10/16/19 09:20 Blast Cells % 0 % 10/16/19 09:20 Nucleated RBC % Not Reportable 10/16/19 09:20 Seg Neutrophils # 10.4 K/mm3 (1.8-7.7) H 10/30/19 05:15 Seg Neutrophils # Man 11.5 K/mm3 (1.8-7.7) H 10/16/19 09:20 Band Neutrophils # 1.8 K/mm3 10/16/19 09:20 Lymphocytes # (Manual) 0.6 K/mm3 (1.2-5.4) L 10/16/19 09:20 Abs React Lymphs (Man) 0.0 K/mm3 10/16/19 09:20 Monocytes # (Manual) 0.3 K/mm3 (0.0-0.8) 10/16/19 09:20 Eosinophils # (Manual) 0.0 K/mm3 (0.0-0.4) 10/16/19 09:20 Basophils # (Manual) 0.0 K/mm3 (0.0-0.1) 10/16/19 09:20 Metamyelocytes # 0.3 K/mm3 10/16/19 09:20 Myelocytes # 0.1 K/mm3 10/16/19 09:20 Promyelocytes # 0.0 K/mm3 10/16/19 09:20 Blast Cells # 0.0 K/mm3 10/16/19 09:20 WBC Morphology Not Reportable 10/16/19 09:20 Hypersegmented Neuts Not Reportable 10/16/19 09:20 Hyposegmented Neuts Not Reportable 10/16/19 09:20 Hypogranular Neuts Not Reportable 10/16/19 09:20 Smudge Cells Not Reportable 10/16/19 09:20 Toxic Granulation Not Reportable 10/16/19 09:20 Toxic Vacuolation Not Reportable 10/16/19 09:20 Dohle Bodies Not Reportable 10/16/19 09:20 Pelger-Huet Anomaly Not Reportable 10/16/19 09:20 Andres Rods Not Reportable 10/16/19 09:20 Platelet Estimate Consistent w auto 10/16/19 09:20 Clumped Platelets Not Reportable 10/16/19 09:20 Plt Clumps, EDTA Not Reportable 10/16/19 09:20 Large Platelets Not Reportable 10/16/19 09:20 Giant Platelets Not Reportable 10/16/19 09:20 Platelet Satelliting Not Reportable 10/16/19 09:20 Plt Morphology Comment Not Reportable 10/16/19 09:20 RBC Morphology Not Reportable 10/16/19 09:20 Dimorphic RBCs Not Reportable 10/16/19 09:20 Polychromasia Few 10/16/19 09:20 Hypochromasia Few 10/16/19 09:20 Poikilocytosis Not Reportable 10/16/19 09:20 Anisocytosis Not Reportable 10/16/19 09:20 Microcytosis Not Reportable 10/16/19 09:20 Macrocytosis Not Reportable 10/16/19 09:20 Spherocytes Not Reportable 10/16/19 09:20 Pappenheimer Bodies Not Reportable 10/16/19 09:20 Sickle Cells Not Reportable 10/16/19 09:20 Target Cells Few 10/16/19 09:20 Tear Drop Cells Not Reportable 10/16/19 09:20 Ovalocytes Not Reportable 10/16/19 09:20 Helmet Cells Not Reportable 10/16/19 09:20 Varghese-Severance Bodies Not Reportable 10/16/19 09:20 [place] Rings Not Reportable 10/16/19 09:20 Bishnu Cells Not Reportable 10/16/19 09:20 Bite Cells Not Reportable 10/16/19 09:20 Crenated Cell Not Reportable 10/16/19 09:20 Elliptocytes Not Reportable 10/16/19 09:20 Acanthocytes (Spur) Not Reportable 10/16/19 09:20 Rouleaux Not Reportable 10/16/19 09:20 Hemoglobin C Crystals Not Reportable 10/16/19 09:20 Schistocytes Not Reportable 10/16/19 09:20 Malaria parasites Not Reportable 10/16/19 09:20 Toni Bodies Not Reportable 10/16/19 09:20 Hem Pathologist Commnt No 10/16/19 09:20 POC ABG pH 7.422 (7.35-7.45) 11/03/19 04:28 ABG pH 7.390 pH Units (7.350-7.450) 10/23/19 04:47 POC ABG pCO2 45.4 (35-45) H 11/03/19 04:28 ABG pCO2 48.4 mm Hg 10/23/19 04:47 POC ABG pO2 83 (80-105) 11/03/19 04:28 ABG pO2 68.9 mm Hg (80.0-90.0) L 10/23/19 04:47 POC ABG HCO3 29.6 (22-26 mml/L) 11/03/19 04:28 ABG HCO3 28.7 mmol/L (20.0-26.0) H 10/23/19 04:47 POC ABG Total CO2 31 (23-27mmol/L) 11/03/19 04:28 POC ABG O2 Sat 96 11/03/19 04:28 ABG O2 Saturation 96.6 % (95.0-99.0) 10/23/19 04:47 ABG O2 Content 8.8 (0.0-44) 10/23/19 04:47 POC ABG Base Excess 5 ((-2) - (+3)mmol/L) 11/03/19 04:28 ABG Base Excess 3.4 mmol/L (-2.0-3.0) H 10/23/19 04:47 ABG Hemoglobin 6.6 gm/dl (14.0-18.0) L 10/23/19 04:47 ABG Carboxyhemoglobin 2.1 % (0.0-5.0) 10/23/19 04:47 ABG Methemoglobin 0.5 % (0.0-1.5) 10/23/19 04:47 Oxyhemoglobin 94.1 % (95.0-99.0) L 10/23/19 04:47 FiO2 40 % 11/03/19 04:28 Sodium 140 mmol/L (137-145) 11/05/19 04:19 Potassium 3.4 mmol/L (3.6-5.0) L 11/05/19 04:19 Chloride 101.7 mmol/L (98-107) 11/05/19 04:19 Carbon Dioxide 27 mmol/L (22-30) 11/05/19 04:19 Anion Gap 15 mmol/L 11/05/19 04:19 BUN 12 mg/dL (9-20) 11/05/19 04:19 Creatinine 0.4 mg/dL (0.8-1.5) L 11/05/19 04:19 Estimated GFR > 60 ml/min 11/05/19 04:19 BUN/Creatinine Ratio 30 % 11/05/19 04:19 Glucose 106 mg/dL (75-100) H 11/05/19 04:19 POC Glucose 136 (70-105) H 11/05/19 05:40 Hemoglobin A1c 5.7 % (4-6) 10/06/19 05:36 Lactic Acid 1.10 mmol/L (0.7-2.0) 10/13/19 04:20 Calcium 8.2 mg/dL (8.4-10.2) L 11/05/19 04:19 Ionized Calcium 5.2 mg/dL (4.8-5.6) 10/18/19 07:41 Phosphorus 2.70 mg/dL (2.5-4.5) 11/02/19 12:43 Magnesium 2.40 mg/dL (1.7-2.3) H 11/02/19 12:43 Total Bilirubin 1.10 mg/dL (0.1-1.2) 10/26/19 06:15 Direct Bilirubin 0.7 mg/dL (0-0.2) H 10/23/19 10:44 Indirect Bilirubin 0.1 mg/dL 10/23/19 10:44 AST 23 units/L (5-40) 10/26/19 06:15 ALT 13 units/L (7-56) 10/26/19 06:15 Alkaline Phosphatase 148 units/L (35-129) H 10/26/19 06:15 Ammonia 49.0 umol/L (25-60) 10/13/19 04:20 Troponin T < 0.010 ng/mL (0.00-0.029) 10/09/19 17:23 C-Reactive Protein 30.60 mg/dL (0.00-1.30) H 10/15/19 04:32 Serum Total Protein 5.2 g/dL (6.1-8.1) L 10/11/19 09:00 Total Protein 5.9 g/dL (6.3-8.2) L 10/26/19 06:15 Albumin 2.4 g/dL (3.9-5) L 10/26/19 06:15 Albumin/Globulin Ratio 0.7 % 10/26/19 06:15 Prealbumin 0.030 g/L (0.200-0.400) L 10/15/19 04:32 [id number] See scanned result 10/11/19 Unknown [id number] See scanned result 10/11/19 Unknown Beta Globulins See scanned result 10/11/19 Unknown Gamma Globulins See scanned result 10/11/19 Unknown Abnorm Protein Band 1 see below 10/11/19 09:00 PEP Interpretation See scanned result 10/11/19 Unknown Triglycerides 185 mg/dL (2-149) H 10/26/19 06:15 Urine Color Yellow (Yellow) 10/26/19 Unknown Urine Turbidity Clear (Clear) 10/26/19 Unknown Urine pH 9.0 (5.0-7.0) H 10/26/19 Unknown Ur Specific [employer] 1.011 (1.003-1.030) 10/26/19 Unknown Urine Protein 30 mg/dl mg/dL (Negative) 10/26/19 Unknown Urine Glucose (UA) Neg mg/dL (Negative) 10/26/19 Unknown Urine Ketones Neg mg/dL (Negative) 10/26/19 Unknown Urine Blood Neg (Negative) 10/26/19 Unknown Urine Nitrite Neg (Negative) 10/26/19 Unknown Urine Bilirubin Neg (Negative) 10/26/19 Unknown Urine Urobilinogen < 2.0 mg/dL (<2.0) 10/26/19 Unknown Ur Leukocyte Esterase Neg (Negative) 10/26/19 Unknown Urine WBC (Auto) 1.0 /HPF (0.0-6.0) 10/26/19 Unknown Urine RBC (Auto) 1.0 /HPF (0.0-6.0) 10/26/19 Unknown Urine Bacteria (Auto) 1+ /HPF (Negative) 10/11/19 06:23 Urine Mucus Few /HPF 10/26/19 Unknown Urine Eosinophils None seen (None Seen) 10/11/19 06:23 Ur Random Creatinine See scanned result 10/11/19 Unknown U Random Total Protein See scanned result 10/11/19 Unknown Urine Creatinine 116.8 mg/dL (0.1-20.0) H 10/11/19 06:23 Urine Creatinine 118.2 mg/dL (0.1-20.0) H 10/11/19 06:23 Protein/Creatinin Ratio See scanned result 10/11/19 Unknown Urine Sodium 14 mmol/L 10/11/19 06:23 Urine Total Protein 104 mg/dL (5-11.8) H 10/11/19 06:23 Urine Total Protein 105 mg/dL (5-11.8) H 10/11/19 06:23 U Abnormal Prot Band 1 See scanned result 10/11/19 Unknown U Abnormal Prot Band 2 See scanned result 10/11/19 Unknown U Abnormal Prot Band 3 See scanned result 10/11/19 Unknown Vancomycin Trough 41.7 ug/mL (5.0-20.0) H 10/31/19 12:55 Random Vancomycin 9.6 ug/mL (0-40.0) 11/03/19 03:42 Digoxin 0.7 ng/mL (0.9-2.0) L 10/19/19 04:21 Blood Type A POSITIVE 10/23/19 11:50 Antibody Screen Negative 10/23/19 11:50 Crossmatch See Detail 10/23/19 11:50 Active Medications - Current Medications Current Medications: Generic Name Dose Route Start Last Admin Trade Name Freq PRN Reason Stop Dose Admin Acetaminophen 650 mg 10/25/19 13:00 11/03/19 16:03 Tylenol FEEDTUBE 650 mg Q4H PRN Administration Fever >100.5 Albuterol 2.5 mg 10/05/19 21:36 Proventil IH Q4HRT PRN Shortness Of Breath Albuterol/Ipratropium 1 ampul 10/06/19 02:00 11/05/19 08:41 Duoneb *Not For Prn Use* IH 1 ampul Q6HRT VERÓNICA Administration Amiodarone HCl 200 mg 10/23/19 13:00 11/04/19 09:27 Cordarone PO 200 mg QDAY VERÓNICA Administration Lipase/Protease/Amylase 1 each 10/20/19 10:37 Shaggy Moreno 10,500 Unit FEEDTUBE PRN PRN For Clogged Feeding Tube Arformoterol Tartrate 15 mcg 10/06/19 08:30 11/05/19 08:41 Brovana Nebu IH Not Given Q12HRT VERÓNICA Budesonide 0.5 mg 10/07/19 12:20 11/05/19 08:41 Pulmicort IH 0.5 mg Q12HRT VERÓNICA Administration Citalopram Hydrobromide 20 mg 10/27/19 12:00 11/04/19 09:27 Celexa PO 20 mg DAILY VERÓNICA Administration Fentanyl 50 mcg 10/25/19 12:35 11/02/19 11:55 Sublimaze IV 50 mcg Q2H PRN Administration PAIN SCORE </=5 Haloperidol Lactate 5 mg 10/25/19 18:22 11/03/19 21:22 Haldol IV 5 mg Q6H PRN Administration Agitation Hydralazine HCl 10 mg 10/28/19 14:09 11/02/19 15:34 Apresoline IV 10 mg Q4HR PRN Administration Hypertension Hydromorphone HCl 2 mg 10/25/19 12:35 11/05/19 08:06 Dilaudid IV 2 mg Q4H PRN Administration PAIN SCORE >/=6 MEROPENEM/NS 1 GRAM/100 ML 1 gram in 100 mls @ 100 mls/hr 10/26/19 18:30 11/05/19 03:32 Merrem/Ns 1 Gram/100 Ml IV 100 mls/hr Q8H VERÓNICA Administration Protocol Micafungin Sodium 100 mg/ 100 mls @ 100 mls/hr 10/26/19 18:30 11/04/19 10:55 Sodium Chloride IV 100 mls/hr QDAY VERÓNICA Administration Protocol Dextrose 1,000 mls @ 75 mls/hr 11/02/19 09:00 11/05/19 08:59 D5w IV 75 mls/hr DIRECT VERÓNICA Administration Vancomycin HCl 2,000 mg/ 540 mls @ 250 mls/hr 11/02/19 10:00 12/22/19 09:28 Sodium Chloride IV 250 mls/hr Q24HR VERÓNICA Administration Insulin Human Lispro 0 unit 10/14/19 12:00 11/05/19 00:49 Humalog SUB-Q Not Given Q6HR [facility] Protocol Lisinopril 20 mg 10/30/19 10:00 11/04/19 09:27 Zestril PO 20 mg QDAY VERÓNICA Administration Metoprolol Tartrate 2.5 mg 10/15/19 15:34 11/01/19 18:00 Metoprolol IV 2.5 mg Q4HR PRN Administration HR >130 Metoprolol Tartrate 50 mg 10/25/19 14:00 11/04/19 21:00 Metoprolol PO 50 mg Q8HR VERÓNICA Administration Multi-Ingred Cream/Lotion/Oil/Oint 1 applic 10/14/19 02:19 Artificial Tears Ophth Oint OU Q4HR PRN Dry Eye(s) Ondansetron HCl 4 mg 10/05/19 21:22 10/11/19 18:20 Zofran IV 4 mg Q3H PRN Administration Nausea And Vomiting Pantoprazole Sodium 40 mg 10/15/19 10:00 11/04/19 09:27 Protonix IV 40 mg QDAY VERÓNICA Administration Simple Syrup 15 ml 10/20/19 10:37 Simple Syrup FEEDTUBE PRN PRN Hypoglycemia Simple Syrup 30 ml 10/20/19 10:37 Simple Syrup FEEDTUBE PRN PRN Hypoglycemia Sodium Bicarbonate 325 mg 10/20/19 10:37 Sodium Bicarbonate FEEDTUBE PRN PRN For Clogged Feeding Tube Sodium Chloride 10 ml 10/05/19 21:22 10/19/19 09:29 Sodium Chloride Flush Syringe 10 Ml IV 10 ml PRN PRN Administration LINE FLUSH Nutrition/Malnutrition Assess - Dietary Evaluation Nutrition/Malnutrition Findings: Nutrition Notes Start: 10/08/19 11:36 Freq: Status: Active Protocol: Document 11/04/19 11:53 LM (Rec: 11/04/19 12:17 LM [id number]) Nutrition Notes Initial or Follow up Reassessment Current Diagnosis Acute Kidney Injury,COPD, Hypertension Other Pertinent Diagnosis intra-abdominal infection, disruption of bowel anastomosis, LE edema Current Diet Vital 1.2 at 70 ml/hr Labs/Tests Na 143 K 3.4 BG 111 Cr 0.5 Pertinent Medications Reviewed Height 6 ft Weight 145 kg [place] Body Weight (kg) 80.90 BMI 43.3 Weight Status Morbidly Obese Subjective/Other Information Vital AF running at 70 ml/hr. Pt extubated this AM. Pt was alert and responsive at time of visit. Will change TF due to extubation. [place] RN. Percent of energy/protein needs met: 99%/74% Burn Absent Trauma Absent GI Symptoms None Current % PO Negligible Minimum of two criteria No physical signs of malnutrition Fluid Accumulation Mild (non-severe) #2 Nutrition Diagnosis Inadequate oral intake Diagnosis Progress(for reassessment Continues documentation) #1 Nutrition Diagnosis Increased nutrient needs ( specify in comment below) Diagnosis Progress(for reassessment Continues documentation) Is patient on ventilator? No Is Patient Ambulatory and/or Out of Bed No REE-([facility]-confined to bed) 2785.236 Kcal/Kg value to use for calculation 14 Approximate Energy Requirements Using 2030 kcal/Kg Calculation Used for Recommendations Kcal/kg Additional Notes Protein: 136-169g (1.2-1.5g/kg ) AdjBW 113kg Fluid 1 ml/kcal or per MD Nutrition Intervention Change Diet Order: Continue TF Nutrition Support: Change to Osmolite 1.5 at 60 ml/hr Flush 170 ml q4hr Kcal 2,160 Protein (gm) 90 Fluid (mL) 1,097 Goal #1 Meet at least 80% of kcal/ protein needs via TF Goal #2 TF tolerance Anticipated Discharge Needs: unable to determine at this time Follow-Up By: 11/05/19 Additional Comments F/U for New TF/tolerance
[2019-11-05] MEDS: AMIODARONE 200 MG TAB PO SCH (09:40)
[2019-11-05] MEDS: PANTOPRAZOLE 40 MG INJ IV SCH (09:40)
[2019-11-05] MEDS: LISINOPRIL 20 MG TAB PO SCH (09:40)
[2019-11-05] MEDS: CITALOPRAM 20 MG TAB PO SCH (09:40)
[2019-11-05] MEDS: MICAFUNGIN 100 MG in SODIUM CHLORIDE 0.9% 100 ML IV SCH (09:41)
[2019-11-05] MEDS: VANCOMYCIN 2,000 MG in SODIUM CHLORIDE 0.9% 500 ML 500 ML IV SCH (09:41)
--- NOTE | 2019-11-05 10:51 | Progress Note ---
Assessment and Plan Cultures 10/10/2019 surgical culture: No growth at 72 hours 10/13/2019 tracheal aspirate culture: No growth 10/13/2019 peritoneal fluid: Enterococcus species (S to Penicillin, Vancomycin) 10/15/2019 blood culture: no growth 10/26/2019 urine culture: no growth thus far 10/26/2019 blood culture: no growth at 24 hours Assessment: 54 yo M PMhx CAD, COPD, recent complicated course of bowel perforation after a colonoscopy admitted with surgical site dehiscence of the fascia. Now with: # Acute sepsis - present with leukocytosis and tachycardia. Most likely secondary to fluid collection/abscess in the abdomen and anastomotic leak. # New fevers: new fevers on 10/25 and 10/26. Ongoing work up and empiric abx. Has indwelling PICC, Whitfield was removed 10/26. UA unremarkable for infection. # Intra-abdominal infection from anastomotic leak - s/p ex lap with closure of abdominal wall and wound vac placement (10/05/2019); s/p Re-exploration, washout, transection of colon, Abthera placement - 10/13/2019. s/p re- exploration and colostomy creation on 10/16/2019, intra-operatively was found to have "Small amount of continued leak from the old anastomotic site. Some contamination still present. Bowel was all viable". Back on OR on 10/19/2019, findings "small leak from stump staple line". OR again on 10/22/2019 for: Abdominal washout. Closure of abdominal fascia. Wound vac placement. Findings, "contamination from the sigmoid stump closure site." # COPD, acute respiratory failure: s/p extubation. On high flow O2. # Penicillin allergy - likely not a true allergy, reviewed EMR for previous exposure to PCNs, patient received several days of Zosyn in 2018 without issue. Recs: - given recent prolonged exposure to abx and TPN, at risk of MDR infections, candidemia, continue empiric Meropenem, Vancomycin and Micafungin - stopped vancomycin, no evidence of MRSA. [facility] M: [phone] O: [phone] F: [phone] Subjective Date of service: 11/05/19 Principal diagnosis: acute renal failure Interval history: Afebrile, white count slight bump today. Objective - Exam Narrative Exam: Constitutional: awake, alert, no distress Head, Ears, Nose: Normocephalic, atraumatic. External ears, nose normal Eyes: Conjunctivae/corneas clear. No icterus. No ptosis. Neck: supple, no meningeal signs Oral: no thrush Cardiovascular: S1, S2 normal. Respiratory: rhonchi bilaterally GI: Midline abdominal VAC. bowel sounds +, Colostomy + drains + Musculoskeletal: anasarca, pedal edema + but improving Skin: No rash or abscess Hem/Lymphatic: No palpable cervical or supraclavicular nodes. No lymphangitis Psych: no agitation Neurological: awake, alert - Constitutional Vitals: Vital Signs Temp Pulse Resp BP Pulse Ox 97.7 F 83 19 124/59 92 11/05/19 08:00 11/05/19 10:00 11/05/19 10:00 11/05/19 10:00 11/05/19 10:00 Temperature -Last 24 Hours Temperature 97.7 F Temperature 98.6 F Temperature 97.9 F Temperature 98.0 F Temperature 98.3 F Temperature 98.4 F - Labs CBC & Chem 7: 11/05/19 04:19 11/05/19 04:19 Labs: Abnormal lab results 11/04/19 11/05/19 11/05/19 Range/Units 12:40 00:28 04:19 WBC 12.4 H (4.5-11.0) K/mm3 RBC 2.98 L (3.65-5.03) M/mm3 Hgb 8.5 L (11.8-15.2) gm/dl Hct 25.5 L (35.5-45.6) % RDW 16.6 H (13.2-15.2) % Potassium (3.6-5.0) mmol/L Creatinine (0.8-1.5) mg/dL Glucose (75-100) mg/dL POC Glucose 109 H 132 H (70-105) Calcium (8.4-10.2) mg/dL 11/05/19 11/05/19 Range/Units 04:19 05:40 WBC (4.5-11.0) K/mm3 RBC (3.65-5.03) M/mm3 Hgb (11.8-15.2) gm/dl Hct (35.5-45.6) % RDW (13.2-15.2) % Potassium 3.4 L (3.6-5.0) mmol/L Creatinine 0.4 L (0.8-1.5) mg/dL Glucose 106 H (75-100) mg/dL POC Glucose 136 H (70-105) Calcium 8.2 L (8.4-10.2) mg/dL
[2019-11-05] MEDS: METOPROLOL TARTRATE 50 MG TAB PO SCH ×3 (13:18→21:24)
[2019-11-05] MEDS: ENOXAPARIN 40 MG/0.4 ML INJ SUB-Q SCH (23:17)
--- NOTE | 2019-11-05 23:55 | Progress Note ---
Assessment and Plan Imp: 1. Colon perforation/peritonitis/anastamotic leak s/p multiple surgeries 2. Sepsis 3. Acute respiratory failure, hypoxia 4. Obesity 5. KALI 6. Centrilobular emphysema, severe 7. Chronic nicotine dependence, cigarettes 8. HTN 9. CAD s/p PCI 10. Ischemic cardiomyopathy 11. PTX on L Rec: 1. ABX per ID 2. Wean O2 to keep sats 88% or > 3. Cont. current nebs 4. Optimize nutrition; monitor elytes 5. DVT PPx 6. Stop smoking 7. No air leak presently; place chest tube to water seal and repeat CXR in AM 8. Complex decision-making No family present Subjective Date of service: 11/05/19 Principal diagnosis: acute renal failure Interval history: No events. On nasal cannula. Arousable. Slurred speech but denies SOB or pain. Active Medications Acetaminophen (Tylenol) 650 mg FEEDTUBE Q4H PRN PRN Reason: Fever >100.5 Last Admin: 11/03/19 16:03 Dose: 650 mg Documented by: Albuterol/Ipratropium (Duoneb *Not For Prn Use*) 1 ampul IH Q6HRT [facility] Last Admin: 11/05/19 19:52 Dose: 1 ampul Documented by: Amiodarone HCl (Cordarone) 200 mg PO QDAY [facility] [place] Last Admin: 11/05/19 09:40 Dose: 200 mg Documented by: Lipase/Protease/Amylase (Shaggy Moreno 10,500 Unit) 1 each FEEDTUBE PRN PRN PRN Reason: For Clogged Feeding Tube Arformoterol Tartrate (Brovana Nebu) 15 mcg IH Q12HRT [facility] [place] Last Admin: 11/05/19 19:52 Dose: 15 mcg Documented by: Budesonide (Pulmicort) 0.5 mg IH Q12HRT [facility] [place] Last Admin: 11/05/19 19:52 Dose: 0.5 mg Documented by: Citalopram Hydrobromide (Celexa) 20 mg PO DAILY [facility] [place] Last Admin: 11/05/19 09:40 Dose: 20 mg Documented by: Enoxaparin Sodium (Enoxaparin) 40 mg SUB-Q QDAY@2200 [facility] [place] Last Admin: 11/05/19 23:17 Dose: 40 mg Documented by: Fentanyl (Sublimaze) 50 mcg IV Q2H PRN PRN Reason: PAIN SCORE </=5 Last Admin: 11/02/19 11:55 Dose: 50 mcg Documented by: Haloperidol Lactate (Haldol) 5 mg IV Q6H PRN PRN Reason: Agitation Last Admin: 11/03/19 21:22 Dose: 5 mg Documented by: Hydralazine HCl (Apresoline) 10 mg IV Q4HR PRN PRN Reason: Hypertension Last Admin: 11/02/19 15:34 Dose: 10 mg Documented by: Hydromorphone HCl (Dilaudid) 2 mg IV Q4H PRN PRN Reason: PAIN SCORE >/=6 Last Admin: 11/05/19 23:17 Dose: 2 mg Documented by: MEROPENEM/NS 1 GRAM/100 ML (Merrem/Ns 1 Gram/100 Ml) 1 gram in 100 mls @ 100 mls/hr IV Q8H [facility]; Protocol Last Admin: 11/05/19 18:16 Dose: 100 mls/hr Documented by: Micafungin Sodium 100 mg/ (Sodium Chloride) 100 mls @ 100 mls/hr IV QDAY [facility]; Protocol Last Admin: 11/05/19 09:41 Dose: 100 mls/hr Documented by: Dextrose (D5w) 1,000 mls @ 75 mls/hr IV DIRECT [facility] Last Admin: 11/05/19 21:42 Dose: 75 mls/hr Documented by: Insulin Human Lispro (Humalog) 0 unit SUB-Q Q6HR [facility]; Protocol Last Admin: 11/05/19 18:19 Dose: Not Given Documented by: Lisinopril (Zestril) 20 mg PO QDAY [facility] [place] Last Admin: 11/05/19 09:40 Dose: 20 mg Documented by: Metoprolol Tartrate (Metoprolol) 2.5 mg IV Q4HR PRN PRN Reason: HR >130 Last Admin: 11/01/19 18:00 Dose: 2.5 mg Documented by: Metoprolol Tartrate (Metoprolol) 50 mg PO Q8HR [facility] Last Admin: 11/05/19 21:24 Dose: 50 mg Documented by: Multi-Ingred Cream/Lotion/Oil/Oint (Artificial Tears Ophth Oint) 1 applic OU Q4HR PRN PRN Reason: Dry Eye(s) Pantoprazole Sodium (Protonix) 40 mg IV QDAY [facility] Last Admin: 11/05/19 09:40 Dose: 40 mg Documented by: Simple Syrup (Simple Syrup) 15 ml FEEDTUBE PRN PRN PRN Reason: Hypoglycemia Simple Syrup (Simple Syrup) 30 ml FEEDTUBE PRN PRN PRN Reason: Hypoglycemia Sodium Bicarbonate (Sodium Bicarbonate) 325 mg FEEDTUBE PRN PRN PRN Reason: For Clogged Feeding Tube Objective Vital Signs - 12hr 11/05/19 11/05/19 11/05/19 12:00 12:30 13:00 Temperature 97.5 F L Pulse Rate 79 84 86 Pulse Rate [ Anterior Bilateral Throughout] Pulse Rate [ 79 From Monitor] Respiratory 23 22 20 Rate Respiratory Rate [Anterior Bilateral Throughout] Blood Pressure 131/65 150/78 145/83 O2 Sat by Pulse 92 93 93 Oximetry 11/05/19 11/05/19 11/05/19 13:18 13:30 13:37 Temperature Pulse Rate 82 80 Pulse Rate [ 78 Anterior Bilateral Throughout] Pulse Rate [ From Monitor] Respiratory 19 Rate Respiratory 18 Rate [Anterior Bilateral Throughout] Blood Pressure 145/83 147/71 O2 Sat by Pulse 93 Oximetry 11/05/19 11/05/19 11/05/19 14:00 14:30 15:00 Temperature Pulse Rate 77 76 75 Pulse Rate [ Anterior Bilateral Throughout] Pulse Rate [ From Monitor] Respiratory 25 H 18 28 H Rate Respiratory Rate [Anterior Bilateral Throughout] Blood Pressure 136/76 141/62 126/75 O2 Sat by Pulse 94 95 95 Oximetry 11/05/19 11/05/19 11/05/19 15:30 16:00 16:30 Temperature 97.5 F L Pulse Rate 74 75 75 Pulse Rate [ Anterior Bilateral Throughout] Pulse Rate [ 79 From Monitor] Respiratory 20 14 19 Rate Respiratory Rate [Anterior Bilateral Throughout] Blood Pressure 132/66 129/63 132/59 O2 Sat by Pulse 95 96 94 Oximetry 11/05/19 11/05/19 11/05/19 17:00 17:30 18:00 Temperature Pulse Rate 78 74 75 Pulse Rate [ Anterior Bilateral Throughout] Pulse Rate [ From Monitor] Respiratory 22 18 18 Rate Respiratory Rate [Anterior Bilateral Throughout] Blood Pressure 136/68 129/63 132/63 O2 Sat by Pulse 93 94 93 Oximetry 11/05/19 11/05/19 11/05/19 18:30 19:00 19:30 Temperature Pulse Rate 79 78 81 Pulse Rate [ Anterior Bilateral Throughout] Pulse Rate [ From Monitor] Respiratory 23 26 H 28 H Rate Respiratory Rate [Anterior Bilateral Throughout] Blood Pressure 138/61 132/62 132/62 O2 Sat by Pulse 92 92 94 Oximetry 11/05/19 11/05/19 11/05/19 19:54 19:55 20:00 Temperature 98.2 F Pulse Rate 80 Pulse Rate [ 82 Anterior Bilateral Throughout] Pulse Rate [ 84 From Monitor] Respiratory 27 H Rate Respiratory 29 H Rate [Anterior Bilateral Throughout] Blood Pressure 128/60 O2 Sat by Pulse 94 91 Oximetry 11/05/19 11/05/19 11/05/19 20:30 21:00 21:24 Temperature Pulse Rate 81 82 84 Pulse Rate [ Anterior Bilateral Throughout] Pulse Rate [ From Monitor] Respiratory 22 24 Rate Respiratory Rate [Anterior Bilateral Throughout] Blood Pressure 127/54 123/53 123/53 O2 Sat by Pulse 91 93 Oximetry 11/05/19 11/05/19 11/05/19 21:30 22:00 23:20 Temperature 98.8 F Pulse Rate 84 80 Pulse Rate [ Anterior Bilateral Throughout] Pulse Rate [ From Monitor] Respiratory 28 H 26 H Rate Respiratory Rate [Anterior Bilateral Throughout] Blood Pressure 140/63 134/58 O2 Sat by Pulse 94 93 Oximetry Constitutional: no acute distress, alert Eyes: non-icteric ENT: oropharynx moist Neck: supple Effort: mildly labored Ascultation: Bilateral: diminished breath sounds (bases) Cardiovascular: regular rate and rhythm (no mrg) Gastrointestinal: non-tender, other (obese, distended) Integumentary: normal Extremities: no cyanosis, pink and warm, edema (1+ bilateral LE edema) Neurologic: normal mental status, non-focal exam, pupils equal and round Psychiatric: mood appropriate, affect normal CBC and BMP: 11/05/19 04:19 11/05/19 04:19 ABG, PT/INR, D-dimer: ABG POC ABG pH 7.422 (7.35-7.45) 11/03/19 04:28 ABG pH 7.390 pH Units (7.350-7.450) 10/23/19 04:47 POC ABG pCO2 45.4 (35-45) H 11/03/19 04:28 ABG pCO2 48.4 mm Hg 10/23/19 04:47 POC ABG pO2 83 (80-105) 11/03/19 04:28 ABG pO2 68.9 mm Hg (80.0-90.0) L 10/23/19 04:47 POC ABG HCO3 29.6 (22-26 mml/L) 11/03/19 04:28 POC ABG Total CO2 31 (23-27mmol/L) 11/03/19 04:28 POC ABG O2 Sat 96 11/03/19 04:28 ABG O2 Saturation 96.6 % (95.0-99.0) 10/23/19 04:47 Abnormal lab findings: Abnormal Labs 10/06/19 10/06/19 10/07/19 05:36 05:36 05:54 WBC 21.8 H 21.5 H RBC 3.55 L Hgb 10.9 L Hct 32.7 L MCHC RDW Plt Count Lymph % (Auto) [place] % (Auto) Lymph # [place] # Seg Neutrophils % Seg Neuts % (Manual) 91.0 H Lymphocytes % (Manual) 2.0 L Seg Neutrophils # Seg Neutrophils # Man 19.8 H Lymphocytes # (Manual) 0.4 L Monocytes # (Manual) 1.1 H POC ABG pH ABG pH POC ABG pCO2 POC ABG pO2 ABG pO2 ABG HCO3 ABG Base Excess ABG Hemoglobin Oxyhemoglobin Sodium 135 L Potassium Chloride 95.9 L Carbon Dioxide BUN Creatinine 0.7 L Glucose POC Glucose Calcium Phosphorus Magnesium Direct Bilirubin AST Alkaline Phosphatase C-Reactive Protein Serum Total Protein Total Protein 5.7 L Albumin 2.5 L Prealbumin Liyxz-6-Eoldswzph Gmzeh-3-Rtosemfmp Gamma Globulins PEP Interpretation Triglycerides Urine pH Urine Creatinine Urine Total Protein Vancomycin Trough Digoxin Crossmatch 10/07/19 10/09/19 10/09/19 05:54 10:52 10:52 WBC 16.6 H RBC Hgb Hct MCHC RDW Plt Count 498 H Lymph % (Auto) [place] % (Auto) Lymph # [place] # Seg Neutrophils % Seg Neuts % (Manual) 93.0 H Lymphocytes % (Manual) 5.0 L Seg Neutrophils # Seg Neutrophils # Man 15.4 H Lymphocytes # (Manual) 0.8 L Monocytes # (Manual) POC ABG pH ABG pH POC ABG pCO2 POC ABG pO2 ABG pO2 ABG HCO3 ABG Base Excess ABG Hemoglobin Oxyhemoglobin Sodium Potassium Chloride 97.9 L Carbon Dioxide 20 L D BUN 23 H Creatinine 1.7 H D Glucose 109 H POC Glucose Calcium 8.1 L Phosphorus Magnesium Direct Bilirubin AST Alkaline Phosphatase C-Reactive Protein Serum Total Protein Total Protein Albumin Prealbumin Wzyhz-7-Wuvydzkpr Mdoru-0-Muufgfnvz Gamma Globulins PEP Interpretation Triglycerides Urine pH Urine Creatinine Urine Total Protein Vancomycin Trough Digoxin Crossmatch 10/09/19 10/10/19 10/10/19 17:23 05:30 05:30 WBC 14.6 H RBC Hgb 11.1 L Hct 33.5 L MCHC RDW Plt Count 527 H Lymph % (Auto) [place] % (Auto) Lymph # [place] # Seg Neutrophils % Seg Neuts % (Manual) Lymphocytes % (Manual) Seg Neutrophils # Seg Neutrophils # Man Lymphocytes # (Manual) Monocytes # (Manual) POC ABG pH ABG pH POC ABG pCO2 POC ABG pO2 ABG pO2 ABG HCO3 ABG Base Excess ABG Hemoglobin Oxyhemoglobin Sodium 130 L D Potassium 5.1 H Chloride 90.0 L 91.0 L Carbon Dioxide 20 L 20 L BUN 27 H 35 H Creatinine 1.9 H 2.0 H Glucose 104 H POC Glucose Calcium Phosphorus Magnesium Direct Bilirubin AST Alkaline Phosphatase C-Reactive Protein Serum Total Protein Total Protein Albumin Prealbumin Pwbjs-8-Hjacfrcxg Lergp-0-Wojaaclvu Gamma Globulins PEP Interpretation Triglycerides Urine pH Urine Creatinine Urine Total Protein Vancomycin Trough Digoxin Crossmatch 10/10/19 10/10/19 10/11/19 08:33 08:44 05:41 WBC 13.2 H RBC Hgb 11.3 L Hct 33.8 L MCHC RDW 15.3 H Plt Count 543 H Lymph % (Auto) [place] % (Auto) Lymph # [place] # Seg Neutrophils % Seg Neuts % (Manual) Lymphocytes % (Manual) Seg Neutrophils # Seg Neutrophils # Man Lymphocytes # (Manual) Monocytes # (Manual) POC ABG pH ABG pH POC ABG pCO2 POC ABG pO2 ABG pO2 ABG HCO3 ABG Base Excess ABG Hemoglobin Oxyhemoglobin Sodium Potassium Chloride Carbon Dioxide BUN Creatinine Glucose 113 H POC Glucose 117 H Calcium Phosphorus Magnesium Direct Bilirubin AST Alkaline Phosphatase C-Reactive Protein Serum Total Protein Total Protein Albumin Prealbumin Nedhk-7-Xbtxzglbk Ghuoe-3-Wmppbthwn Gamma Globulins PEP Interpretation Triglycerides Urine pH Urine Creatinine Urine Total Protein Vancomycin Trough Digoxin Crossmatch 10/11/19 10/11/19 10/11/19 05:41 06:23 06:23 WBC RBC Hgb Hct MCHC RDW Plt Count Lymph % (Auto) [place] % (Auto) Lymph # [place] # Seg Neutrophils % Seg Neuts % (Manual) Lymphocytes % (Manual) Seg Neutrophils # Seg Neutrophils # Man Lymphocytes # (Manual) Monocytes # (Manual) POC ABG pH ABG pH POC ABG pCO2 POC ABG pO2 ABG pO2 ABG HCO3 ABG Base Excess ABG Hemoglobin Oxyhemoglobin Sodium 134 L Potassium Chloride 96.3 L Carbon Dioxide BUN 37 H Creatinine Glucose 58 L POC Glucose Calcium Phosphorus 4.90 H Magnesium Direct Bilirubin AST Alkaline Phosphatase C-Reactive Protein Serum Total Protein Total Protein Albumin Prealbumin Wcxqf-7-Eexmdkrxh Icdmb-5-Wdqdiluor Gamma Globulins PEP Interpretation Triglycerides Urine pH Urine Creatinine 118.2 H 116.8 H Urine Total Protein 105 H 104 H Vancomycin Trough Digoxin Crossmatch 10/11/19 10/12/19 10/12/19 09:00 06:09 06:09 WBC 13.8 H RBC 3.39 L Hgb 10.2 L Hct 30.9 L MCHC RDW 15.5 H Plt Count 459 H Lymph % (Auto) [place] % (Auto) Lymph # [place] # Seg Neutrophils % Seg Neuts % (Manual) Lymphocytes % (Manual) Seg Neutrophils # Seg Neutrophils # Man Lymphocytes # (Manual) Monocytes # (Manual) POC ABG pH ABG pH POC ABG pCO2 POC ABG pO2 ABG pO2 ABG HCO3 ABG Base Excess ABG Hemoglobin Oxyhemoglobin Sodium 131 L Potassium Chloride 96.2 L Carbon Dioxide 21 L BUN 43 H Creatinine Glucose 72 L POC Glucose Calcium Phosphorus Magnesium Direct Bilirubin AST Alkaline Phosphatase C-Reactive Protein Serum Total Protein 5.2 L Total Protein Albumin 1.9 L Prealbumin Uxzyx-2-Uociycgpk 0.9 H Yntsh-8-Macvpoucz 1.0 H Gamma Globulins 0.7 L PEP Interpretation see below H Triglycerides Urine pH Urine Creatinine Urine Total Protein Vancomycin Trough Digoxin Crossmatch 10/12/19 10/12/19 10/12/19 08:20 09:30 09:30 WBC RBC Hgb Hct MCHC RDW Plt Count Lymph % (Auto) [place] % (Auto) Lymph # [place] # Seg Neutrophils % Seg Neuts % (Manual) Lymphocytes % (Manual) Seg Neutrophils # Seg Neutrophils # Man Lymphocytes # (Manual) Monocytes # (Manual) POC ABG pH ABG pH POC ABG pCO2 POC ABG pO2 63 L ABG pO2 ABG HCO3 ABG Base Excess ABG Hemoglobin Oxyhemoglobin Sodium Potassium Chloride Carbon Dioxide BUN Creatinine Glucose POC Glucose Calcium Phosphorus Magnesium 2.50 H Direct Bilirubin 0.3 H AST Alkaline Phosphatase C-Reactive Protein Serum Total Protein Total Protein 5.1 L Albumin 2.2 L Prealbumin Bhdjq-8-Ezauicbzn Glphd-2-Iyxfmhjwk Gamma Globulins PEP Interpretation Triglycerides Urine pH Urine Creatinine Urine Total Protein Vancomycin Trough Digoxin Crossmatch 10/13/19 10/13/19 10/13/19 04:20 04:20 13:20 WBC 15.7 H RBC 3.64 L Hgb 10.9 L Hct 33.1 L MCHC RDW 15.8 H Plt Count 488 H Lymph % (Auto) [place] % (Auto) Lymph # [place] # Seg Neutrophils % Seg Neuts % (Manual) Lymphocytes % (Manual) Seg Neutrophils # Seg Neutrophils # Man Lymphocytes # (Manual) Monocytes # (Manual) POC ABG pH ABG pH POC ABG pCO2 POC ABG pO2 ABG pO2 ABG HCO3 ABG Base Excess ABG Hemoglobin Oxyhemoglobin Sodium Potassium Chloride Carbon Dioxide BUN 28 H Creatinine Glucose POC Glucose Calcium Phosphorus Magnesium Direct Bilirubin AST Alkaline Phosphatase C-Reactive Protein Serum Total Protein Total Protein Albumin Prealbumin Tkgxe-6-Asnhuawhv Uljyl-2-Rgjeoroak Gamma Globulins PEP Interpretation Triglycerides Urine pH Urine Creatinine Urine Total Protein Vancomycin Trough Digoxin Crossmatch See Detail 10/13/19 10/13/19 10/14/19 18:24 20:05 04:47 WBC 24.2 H RBC Hgb 10.9 L Hct 34.2 L MCHC RDW 17.0 H Plt Count 442 H Lymph % (Auto) [place] % (Auto) Lymph # [place] # Seg Neutrophils % Seg Neuts % (Manual) Lymphocytes % (Manual) Seg Neutrophils # Seg Neutrophils # Man Lymphocytes # (Manual) Monocytes # (Manual) POC ABG pH ABG pH 7.180 L* 7.278 L POC ABG pCO2 POC ABG pO2 ABG pO2 130.7 H ABG HCO3 ABG Base Excess -6.5 L -6.5 L ABG Hemoglobin 12.2 L 12.3 L Oxyhemoglobin 92.9 L Sodium Potassium Chloride Carbon Dioxide BUN Creatinine Glucose POC Glucose Calcium Phosphorus Magnesium Direct Bilirubin AST Alkaline Phosphatase C-Reactive Protein Serum Total Protein Total Protein Albumin Prealbumin Taidf-1-Asekselwk Tbtww-4-Ypaysdqlo Gamma Globulins PEP Interpretation Triglycerides Urine pH Urine Creatinine Urine Total Protein Vancomycin Trough Digoxin Crossmatch 10/14/19 10/14/19 10/14/19 04:47 05:40 10:14 WBC RBC Hgb Hct MCHC RDW Plt Count Lymph % (Auto) [place] % (Auto) Lymph # [place] # Seg Neutrophils % Seg Neuts % (Manual) Lymphocytes % (Manual) Seg Neutrophils # Seg Neutrophils # Man Lymphocytes # (Manual) Monocytes # (Manual) POC ABG pH ABG pH POC ABG pCO2 POC ABG pO2 ABG pO2 76.3 L ABG HCO3 19.1 L ABG Base Excess -5.8 L ABG Hemoglobin 10.9 L Oxyhemoglobin 93.4 L Sodium Potassium 5.1 H D Chloride 109.2 H Carbon Dioxide 17 L BUN 38 H Creatinine 1.8 H D Glucose 104 H POC Glucose Calcium 7.4 L Phosphorus 5.60 H Magnesium Direct Bilirubin AST Alkaline Phosphatase C-Reactive Protein Serum Total Protein Total Protein Albumin Prealbumin Hpoce-3-Eapdopiag Bhwij-1-Hdoatlwqx Gamma Globulins PEP Interpretation Triglycerides Urine pH Urine Creatinine Urine Total Protein Vancomycin Trough Digoxin Crossmatch 10/14/19 10/15/19 10/15/19 23:46 04:32 04:32 WBC 15.5 H RBC 2.89 L Hgb 8.8 L Hct 27.3 L D MCHC RDW 16.6 H Plt Count Lymph % (Auto) [place] % (Auto) Lymph # [place] # Seg Neutrophils % Seg Neuts % (Manual) Lymphocytes % (Manual) Seg Neutrophils # Seg Neutrophils # Man Lymphocytes # (Manual) Monocytes # (Manual) POC ABG pH ABG pH POC ABG pCO2 POC ABG pO2 ABG pO2 ABG HCO3 ABG Base Excess ABG Hemoglobin Oxyhemoglobin Sodium 147 H Potassium Chloride 114.0 H Carbon Dioxide 19 L BUN 42 H Creatinine Glucose 112 H POC Glucose 113 H Calcium 7.3 L Phosphorus Magnesium Direct Bilirubin AST 72 H Alkaline Phosphatase C-Reactive Protein 30.60 H Serum Total Protein Total Protein 4.0 L D Albumin 1.7 L Prealbumin 0.030 L Xrlhh-5-Kexprdfrk Kabhv-7-Uzmansjrx Gamma Globulins PEP Interpretation Triglycerides Urine pH Urine Creatinine Urine Total Protein Vancomycin Trough Digoxin Crossmatch 10/15/19 10/15/19 10/15/19 05:30 12:08 17:23 WBC RBC Hgb Hct MCHC RDW Plt Count Lymph % (Auto) [place] % (Auto) Lymph # [place] # Seg Neutrophils % Seg Neuts % (Manual) Lymphocytes % (Manual) Seg Neutrophils # Seg Neutrophils # Man Lymphocytes # (Manual) Monocytes # (Manual) POC ABG pH ABG pH 7.296 L POC ABG pCO2 POC ABG pO2 ABG pO2 114.7 H ABG HCO3 ABG Base Excess -3.7 L ABG Hemoglobin 8.9 L Oxyhemoglobin Sodium Potassium Chloride Carbon Dioxide BUN Creatinine Glucose POC Glucose 106 H 106 H Calcium Phosphorus Magnesium Direct Bilirubin AST Alkaline Phosphatase C-Reactive Protein Serum Total Protein Total Protein Albumin Prealbumin Jbyqs-8-Wkfvxlhrf Oocvs-7-Fnlcdgvrx Gamma Globulins PEP Interpretation Triglycerides Urine pH Urine Creatinine Urine Total Protein Vancomycin Trough Digoxin Crossmatch 10/16/19 10/16/19 10/16/19 00:07 04:44 05:24 WBC RBC Hgb Hct MCHC RDW Plt Count Lymph % (Auto) [place] % (Auto) Lymph # [place] # Seg Neutrophils % Seg Neuts % (Manual) Lymphocytes % (Manual) Seg Neutrophils # Seg Neutrophils # Man Lymphocytes # (Manual) Monocytes # (Manual) POC ABG pH ABG pH POC ABG pCO2 POC ABG pO2 ABG pO2 ABG HCO3 ABG Base Excess ABG Hemoglobin Oxyhemoglobin Sodium 150 H Potassium Chloride 115.8 H Carbon Dioxide BUN 35 H Creatinine Glucose 129 H POC Glucose 119 H 129 H Calcium 7.3 L Phosphorus 1.80 L D Magnesium Direct Bilirubin AST Alkaline Phosphatase C-Reactive Protein Serum Total Protein Total Protein Albumin Prealbumin Cmnyd-7-Jcvfagxgh Pdbuh-8-Syrvqotgi Gamma Globulins PEP Interpretation Triglycerides Urine pH Urine Creatinine Urine Total Protein Vancomycin Trough Digoxin Crossmatch 10/16/19 10/16/19 10/16/19 06:53 09:20 11:58 WBC 14.6 H RBC 2.70 L Hgb 8.1 L Hct 25.2 L MCHC RDW 16.7 H Plt Count Lymph % (Auto) [place] % (Auto) Lymph # [place] # Seg Neutrophils % Seg Neuts % (Manual) 79.0 H Lymphocytes % (Manual) 4.0 L Seg Neutrophils # Seg Neutrophils # Man 11.5 H Lymphocytes # (Manual) 0.6 L Monocytes # (Manual) POC ABG pH ABG pH POC ABG pCO2 47.0 H POC ABG pO2 ABG pO2 ABG HCO3 ABG Base Excess ABG Hemoglobin Oxyhemoglobin Sodium Potassium Chloride Carbon Dioxide BUN Creatinine Glucose POC Glucose Calcium Phosphorus Magnesium Direct Bilirubin AST Alkaline Phosphatase C-Reactive Protein Serum Total Protein Total Protein Albumin Prealbumin Miybd-1-Pzhddluqd Qzics-4-Sitlonudm Gamma Globulins PEP Interpretation Triglycerides Urine pH Urine Creatinine Urine Total Protein Vancomycin Trough Digoxin Crossmatch See Detail 10/16/19 10/16/19 10/16/19 15:23 17:50 23:58 WBC RBC Hgb Hct MCHC RDW Plt Count Lymph % (Auto) [place] % (Auto) Lymph # [place] # Seg Neutrophils % Seg Neuts % (Manual) Lymphocytes % (Manual) Seg Neutrophils # Seg Neutrophils # Man Lymphocytes # (Manual) Monocytes # (Manual) POC ABG pH ABG pH POC ABG pCO2 POC ABG pO2 ABG pO2 ABG HCO3 ABG Base Excess ABG Hemoglobin Oxyhemoglobin Sodium Potassium Chloride Carbon Dioxide BUN Creatinine Glucose POC Glucose 221 H 201 H 179 H Calcium Phosphorus Magnesium Direct Bilirubin AST Alkaline Phosphatase C-Reactive Protein Serum Total Protein Total Protein Albumin Prealbumin Klsnw-5-Kgqgszbtb Qojlb-6-Tfmcrpeod Gamma Globulins PEP Interpretation Triglycerides Urine pH Urine Creatinine Urine Total Protein Vancomycin Trough Digoxin Crossmatch 10/17/19 10/17/19 10/17/19 04:08 04:08 05:41 WBC 22.3 H RBC 3.35 L Hgb 10.0 L Hct 31.2 L D MCHC RDW 16.1 H Plt Count Lymph % (Auto) [place] % (Auto) Lymph # [place] # Seg Neutrophils % Seg Neuts % (Manual) Lymphocytes % (Manual) Seg Neutrophils # Seg Neutrophils # Man Lymphocytes # (Manual) Monocytes # (Manual) POC ABG pH 7.310 L ABG pH POC ABG pCO2 52.8 H POC ABG pO2 70 L ABG pO2 ABG HCO3 ABG Base Excess ABG Hemoglobin Oxyhemoglobin Sodium 147 H Potassium Chloride 114.9 H Carbon Dioxide BUN 36 H Creatinine Glucose 165 H POC Glucose Calcium 6.9 L Phosphorus 2.20 L D Magnesium Direct Bilirubin AST Alkaline Phosphatase C-Reactive Protein Serum Total Protein Total Protein Albumin Prealbumin Oslsk-5-Ngzuenjwj Qdcvy-5-Pcjgjsryt Gamma Globulins PEP Interpretation Triglycerides Urine pH Urine Creatinine Urine Total Protein Vancomycin Trough Digoxin Crossmatch 10/17/19 10/17/19 10/17/19 05:42 11:33 18:17 WBC RBC Hgb Hct MCHC RDW Plt Count Lymph % (Auto) [place] % (Auto) Lymph # [place] # Seg Neutrophils % Seg Neuts % (Manual) Lymphocytes % (Manual) Seg Neutrophils # Seg Neutrophils # Man Lymphocytes # (Manual) Monocytes # (Manual) POC ABG pH ABG pH POC ABG pCO2 POC ABG pO2 ABG pO2 ABG HCO3 ABG Base Excess ABG Hemoglobin Oxyhemoglobin Sodium Potassium Chloride Carbon Dioxide BUN Creatinine Glucose POC Glucose 149 H 154 H 163 H Calcium Phosphorus Magnesium Direct Bilirubin AST Alkaline Phosphatase C-Reactive Protein Serum Total Protein Total Protein Albumin Prealbumin Ybxfn-1-Iibovxtmo Ssvri-2-Irzldgkgm Gamma Globulins PEP Interpretation Triglycerides Urine pH Urine Creatinine Urine Total Protein Vancomycin Trough Digoxin Crossmatch 10/17/19 10/18/19 10/18/19 23:34 03:29 04:50 WBC RBC Hgb Hct MCHC RDW Plt Count Lymph % (Auto) [place] % (Auto) Lymph # [place] # Seg Neutrophils % Seg Neuts % (Manual) Lymphocytes % (Manual) Seg Neutrophils # Seg Neutrophils # Man Lymphocytes # (Manual) Monocytes # (Manual) POC ABG pH ABG pH POC ABG pCO2 POC ABG pO2 ABG pO2 78.8 L ABG HCO3 ABG Base Excess ABG Hemoglobin 8.8 L Oxyhemoglobin Sodium Potassium Chloride 111.8 H Carbon Dioxide BUN 27 H Creatinine 0.6 L Glucose 140 H POC Glucose 135 H Calcium 7.1 L Phosphorus 1.80 L Magnesium Direct Bilirubin AST Alkaline Phosphatase C-Reactive Protein Serum Total Protein Total Protein Albumin Prealbumin Cwyna-8-Dhznyealt Qxkbh-7-Ejtqsukop Gamma Globulins PEP Interpretation Triglycerides Urine pH Urine Creatinine Urine Total Protein Vancomycin Trough Digoxin Crossmatch 10/18/19 10/18/19 10/18/19 05:45 11:19 18:26 WBC RBC Hgb Hct MCHC RDW Plt Count Lymph % (Auto) [place] % (Auto) Lymph # [place] # Seg Neutrophils % Seg Neuts % (Manual) Lymphocytes % (Manual) Seg Neutrophils # Seg Neutrophils # Man Lymphocytes # (Manual) Monocytes # (Manual) POC ABG pH ABG pH POC ABG pCO2 POC ABG pO2 ABG pO2 ABG HCO3 ABG Base Excess ABG Hemoglobin Oxyhemoglobin Sodium Potassium Chloride Carbon Dioxide BUN Creatinine Glucose POC Glucose 145 H 152 H 125 H Calcium Phosphorus Magnesium Direct Bilirubin AST Alkaline Phosphatase C-Reactive Protein Serum Total Protein Total Protein Albumin Prealbumin Mytud-4-Yqhgfnvtz Kqqor-8-Ttnhylvio Gamma Globulins PEP Interpretation Triglycerides Urine pH Urine Creatinine Urine Total Protein Vancomycin Trough Digoxin Crossmatch 10/18/19 10/19/19 10/19/19 23:27 04:21 04:21 WBC RBC Hgb Hct MCHC RDW Plt Count Lymph % (Auto) [place] % (Auto) Lymph # [place] # Seg Neutrophils % Seg Neuts % (Manual) Lymphocytes % (Manual) Seg Neutrophils # Seg Neutrophils # Man Lymphocytes # (Manual) Monocytes # (Manual) POC ABG pH ABG pH POC ABG pCO2 POC ABG pO2 ABG pO2 ABG HCO3 ABG Base Excess ABG Hemoglobin Oxyhemoglobin Sodium Potassium Chloride 108.4 H Carbon Dioxide BUN 22 H Creatinine 0.5 L Glucose 123 H POC Glucose 127 H Calcium 7.4 L Phosphorus 1.80 L Magnesium Direct Bilirubin AST Alkaline Phosphatase C-Reactive Protein Serum Total Protein Total Protein Albumin Prealbumin Aaciz-4-Ncqauwjpr Ztqhk-2-Hbooabslt Gamma Globulins PEP Interpretation Triglycerides Urine pH Urine Creatinine Urine Total Protein Vancomycin Trough Digoxin 0.7 L Crossmatch 10/19/19 10/19/19 10/19/19 05:00 05:35 11:26 WBC RBC Hgb Hct MCHC RDW Plt Count Lymph % (Auto) [place] % (Auto) Lymph # [place] # Seg Neutrophils % Seg Neuts % (Manual) Lymphocytes % (Manual) Seg Neutrophils # Seg Neutrophils # Man Lymphocytes # (Manual) Monocytes # (Manual) POC ABG pH ABG pH 7.456 H POC ABG pCO2 POC ABG pO2 ABG pO2 78.8 L ABG HCO3 ABG Base Excess ABG Hemoglobin 5.6 L Oxyhemoglobin Sodium Potassium Chloride Carbon Dioxide BUN Creatinine Glucose POC Glucose 124 H 111 H Calcium Phosphorus Magnesium Direct Bilirubin AST Alkaline Phosphatase C-Reactive Protein Serum Total Protein Total Protein Albumin Prealbumin Qdkby-5-Dhuuyetui Wfvbk-7-Blnzrpaht Gamma Globulins PEP Interpretation Triglycerides Urine pH Urine Creatinine Urine Total Protein Vancomycin Trough Digoxin Crossmatch 10/19/19 10/20/19 10/20/19 23:23 04:50 05:17 WBC RBC Hgb Hct MCHC RDW Plt Count Lymph % (Auto) [place] % (Auto) Lymph # [place] # Seg Neutrophils % Seg Neuts % (Manual) Lymphocytes % (Manual) Seg Neutrophils # Seg Neutrophils # Man Lymphocytes # (Manual) Monocytes # (Manual) POC ABG pH ABG pH POC ABG pCO2 POC ABG pO2 ABG pO2 ABG HCO3 ABG Base Excess ABG Hemoglobin Oxyhemoglobin Sodium Potassium Chloride 108.1 H Carbon Dioxide BUN Creatinine 0.4 L Glucose 134 H POC Glucose 129 H 123 H Calcium 7.1 L Phosphorus Magnesium Direct Bilirubin AST Alkaline Phosphatase C-Reactive Protein Serum Total Protein Total Protein Albumin Prealbumin Hywyy-3-Fclsndepf Rufgm-2-Ljzybxpya Gamma Globulins PEP Interpretation Triglycerides Urine pH Urine Creatinine Urine Total Protein Vancomycin Trough Digoxin Crossmatch 10/20/19 10/20/19 10/21/19 11:40 19:06 05:08 WBC RBC Hgb Hct MCHC RDW Plt Count Lymph % (Auto) [place] % (Auto) Lymph # [place] # Seg Neutrophils % Seg Neuts % (Manual) Lymphocytes % (Manual) Seg Neutrophils # Seg Neutrophils # Man Lymphocytes # (Manual) Monocytes # (Manual) POC ABG pH ABG pH POC ABG pCO2 POC ABG pO2 ABG pO2 ABG HCO3 ABG Base Excess ABG Hemoglobin Oxyhemoglobin Sodium Potassium Chloride Carbon Dioxide BUN Creatinine Glucose POC Glucose 139 H 117 H 131 H Calcium Phosphorus Magnesium Direct Bilirubin AST Alkaline Phosphatase C-Reactive Protein Serum Total Protein Total Protein Albumin Prealbumin Dflsm-2-Qpyxeuafl Epbrl-1-Tnejfptxh Gamma Globulins PEP Interpretation Triglycerides Urine pH Urine Creatinine Urine Total Protein Vancomycin Trough Digoxin Crossmatch 10/21/19 10/21/19 10/21/19 05:30 12:04 17:31 WBC RBC Hgb Hct MCHC RDW Plt Count Lymph % (Auto) [place] % (Auto) Lymph # [place] # Seg Neutrophils % Seg Neuts % (Manual) Lymphocytes % (Manual) Seg Neutrophils # Seg Neutrophils # Man Lymphocytes # (Manual) Monocytes # (Manual) POC ABG pH ABG pH POC ABG pCO2 POC ABG pO2 ABG pO2 ABG HCO3 ABG Base Excess ABG Hemoglobin Oxyhemoglobin Sodium Potassium Chloride 107.8 H Carbon Dioxide BUN Creatinine 0.5 L Glucose 119 H POC Glucose 119 H 110 H Calcium 7.6 L Phosphorus Magnesium Direct Bilirubin AST Alkaline Phosphatase C-Reactive Protein Serum Total Protein Total Protein Albumin Prealbumin Ziyqm-2-Zkjftibqs Blfjs-0-Alhnzzadw Gamma Globulins PEP Interpretation Triglycerides Urine pH Urine Creatinine Urine Total Protein Vancomycin Trough Digoxin Crossmatch 10/22/19 10/22/19 10/22/19 05:14 05:37 12:07 WBC RBC Hgb Hct MCHC RDW Plt Count Lymph % (Auto) [place] % (Auto) Lymph # [place] # Seg Neutrophils % Seg Neuts % (Manual) Lymphocytes % (Manual) Seg Neutrophils # Seg Neutrophils # Man Lymphocytes # (Manual) Monocytes # (Manual) POC ABG pH ABG pH POC ABG pCO2 POC ABG pO2 ABG pO2 ABG HCO3 ABG Base Excess ABG Hemoglobin Oxyhemoglobin Sodium Potassium Chloride Carbon Dioxide BUN Creatinine 0.5 L Glucose 116 H POC Glucose 110 H 126 H Calcium 7.7 L Phosphorus Magnesium Direct Bilirubin AST Alkaline Phosphatase C-Reactive Protein Serum Total Protein Total Protein Albumin Prealbumin Ycjuf-4-Xmeyxmlfc Yebkh-4-Lrafkwrtd Gamma Globulins PEP Interpretation Triglycerides Urine pH Urine Creatinine Urine Total Protein Vancomycin Trough Digoxin Crossmatch 10/22/19 10/22/19 10/23/19 18:36 23:19 04:39 WBC RBC Hgb Hct MCHC RDW Plt Count Lymph % (Auto) [place] % (Auto) Lymph # [place] # Seg Neutrophils % Seg Neuts % (Manual) Lymphocytes % (Manual) Seg Neutrophils # Seg Neutrophils # Man Lymphocytes # (Manual) Monocytes # (Manual) POC ABG pH ABG pH POC ABG pCO2 POC ABG pO2 ABG pO2 ABG HCO3 ABG Base Excess ABG Hemoglobin Oxyhemoglobin Sodium Potassium Chloride Carbon Dioxide BUN Creatinine Glucose POC Glucose 120 H 127 H 112 H Calcium Phosphorus Magnesium Direct Bilirubin AST Alkaline Phosphatase C-Reactive Protein Serum Total Protein Total Protein Albumin Prealbumin Thveg-0-Ohfmtqlou Ajylt-0-Vbhbroxul Gamma Globulins PEP Interpretation Triglycerides Urine pH Urine Creatinine Urine Total Protein Vancomycin Trough Digoxin Crossmatch 10/23/19 10/23/19 10/23/19 04:47 05:15 10:44 WBC 18.3 H RBC 2.33 L Hgb 7.0 L Hct 21.5 L MCHC RDW 16.2 H Plt Count Lymph % (Auto) 4.9 L [place] % (Auto) 8.1 H Lymph # 0.9 L [place] # 1.5 H Seg Neutrophils % 86.7 H Seg Neuts % (Manual) Lymphocytes % (Manual) Seg Neutrophils # 15.9 H Seg Neutrophils # Man Lymphocytes # (Manual) Monocytes # (Manual) POC ABG pH ABG pH POC ABG pCO2 POC ABG pO2 ABG pO2 68.9 L ABG HCO3 28.7 H ABG Base Excess 3.4 H ABG Hemoglobin 6.6 L Oxyhemoglobin 94.1 L Sodium Potassium Chloride Carbon Dioxide BUN Creatinine 0.5 L Glucose 165 H POC Glucose Calcium 7.4 L Phosphorus Magnesium Direct Bilirubin AST Alkaline Phosphatase C-Reactive Protein Serum Total Protein Total Protein Albumin Prealbumin Tgrrw-4-Ymaivkqih Dkqsl-9-Xwkkidiyo Gamma Globulins PEP Interpretation Triglycerides Urine pH Urine Creatinine Urine Total Protein Vancomycin Trough Digoxin Crossmatch 10/23/19 10/23/19 10/23/19 10:44 11:46 11:50 WBC RBC Hgb Hct MCHC RDW Plt Count Lymph % (Auto) [place] % (Auto) Lymph # [place] # Seg Neutrophils % Seg Neuts % (Manual) Lymphocytes % (Manual) Seg Neutrophils # Seg Neutrophils # Man Lymphocytes # (Manual) Monocytes # (Manual) POC ABG pH ABG pH POC ABG pCO2 POC ABG pO2 ABG pO2 ABG HCO3 ABG Base Excess ABG Hemoglobin Oxyhemoglobin Sodium Potassium Chloride Carbon Dioxide BUN Creatinine Glucose POC Glucose 138 H Calcium Phosphorus Magnesium Direct Bilirubin 0.7 H AST Alkaline Phosphatase C-Reactive Protein Serum Total Protein Total Protein 4.5 L Albumin 1.2 L Prealbumin Xmwad-2-Wboejntml Mrdwl-4-Umurvvyke Gamma Globulins PEP Interpretation Triglycerides Urine pH Urine Creatinine Urine Total Protein Vancomycin Trough Digoxin Crossmatch See Detail 10/23/19 10/24/19 10/24/19 17:53 00:07 05:05 WBC RBC Hgb Hct MCHC RDW Plt Count Lymph % (Auto) [place] % (Auto) Lymph # [place] # Seg Neutrophils % Seg Neuts % (Manual) Lymphocytes % (Manual) Seg Neutrophils # Seg Neutrophils # Man Lymphocytes # (Manual) Monocytes # (Manual) POC ABG pH ABG pH POC ABG pCO2 POC ABG pO2 ABG pO2 ABG HCO3 ABG Base Excess ABG Hemoglobin Oxyhemoglobin Sodium Potassium 3.5 L Chloride Carbon Dioxide BUN Creatinine 0.5 L Glucose 116 H POC Glucose 137 H 110 H Calcium 8.0 L Phosphorus Magnesium Direct Bilirubin AST Alkaline Phosphatase C-Reactive Protein Serum Total Protein Total Protein Albumin Prealbumin Wvbbo-0-Fujmwrspn Crljt-5-Ztvysmigc Gamma Globulins PEP Interpretation Triglycerides Urine pH Urine Creatinine Urine Total Protein Vancomycin Trough Digoxin Crossmatch 10/24/19 10/24/19 10/24/19 05:05 11:56 13:00 WBC 13.0 H RBC 2.73 L Hgb 8.0 L Hct 24.2 L MCHC RDW 17.9 H Plt Count Lymph % (Auto) 7.0 L [place] % (Auto) 9.5 H Lymph # 0.9 L [place] # 1.2 H Seg Neutrophils % 82.7 H Seg Neuts % (Manual) Lymphocytes % (Manual) Seg Neutrophils # 10.7 H Seg Neutrophils # Man Lymphocytes # (Manual) Monocytes # (Manual) POC ABG pH ABG pH POC ABG pCO2 POC ABG pO2 ABG pO2 ABG HCO3 ABG Base Excess ABG Hemoglobin Oxyhemoglobin Sodium Potassium Chloride Carbon Dioxide BUN Creatinine Glucose POC Glucose 159 H Calcium Phosphorus Magnesium Direct Bilirubin AST Alkaline Phosphatase C-Reactive Protein Serum Total Protein Total Protein Albumin Prealbumin Fxaqa-7-Wacvggttc Fnxsd-2-Hhrknlkvg Gamma Globulins PEP Interpretation Triglycerides 216 H Urine pH Urine Creatinine Urine Total Protein Vancomycin Trough Digoxin Crossmatch 10/24/19 10/24/19 10/25/19 17:42 23:45 04:19 WBC RBC Hgb Hct MCHC RDW Plt Count Lymph % (Auto) [place] % (Auto) Lymph # [place] # Seg Neutrophils % Seg Neuts % (Manual) Lymphocytes % (Manual) Seg Neutrophils # Seg Neutrophils # Man Lymphocytes # (Manual) Monocytes # (Manual) POC ABG pH ABG pH POC ABG pCO2 POC ABG pO2 ABG pO2 ABG HCO3 ABG Base Excess ABG Hemoglobin Oxyhemoglobin Sodium 147 H Potassium Chloride Carbon Dioxide 33 H BUN Creatinine 0.5 L Glucose 111 H POC Glucose 120 H 116 H Calcium Phosphorus Magnesium Direct Bilirubin AST Alkaline Phosphatase C-Reactive Protein Serum Total Protein Total Protein 5.7 L D Albumin 2.5 L Prealbumin Ftcgi-7-Odbfqibze Zmuom-1-Gtejhgyxr Gamma Globulins PEP Interpretation Triglycerides 230 H Urine pH Urine Creatinine Urine Total Protein Vancomycin Trough Digoxin Crossmatch 10/25/19 10/25/19 10/25/19 04:19 05:31 12:20 WBC RBC 2.69 L Hgb 8.1 L Hct 23.9 L MCHC RDW 17.3 H Plt Count Lymph % (Auto) [place] % (Auto) Lymph # [place] # Seg Neutrophils % Seg Neuts % (Manual) Lymphocytes % (Manual) Seg Neutrophils # Seg Neutrophils # Man Lymphocytes # (Manual) Monocytes # (Manual) POC ABG pH ABG pH POC ABG pCO2 POC ABG pO2 ABG pO2 ABG HCO3 ABG Base Excess ABG Hemoglobin Oxyhemoglobin Sodium Potassium Chloride Carbon Dioxide BUN Creatinine Glucose POC Glucose 126 H 114 H Calcium Phosphorus Magnesium Direct Bilirubin AST Alkaline Phosphatase C-Reactive Protein Serum Total Protein Total Protein Albumin Prealbumin Jymbf-9-Shbfxyxpd Tdxgr-6-Ecikwxpth Gamma Globulins PEP Interpretation Triglycerides Urine pH Urine Creatinine Urine Total Protein Vancomycin Trough Digoxin Crossmatch 10/25/19 10/25/19 10/26/19 18:30 23:09 06:15 WBC RBC Hgb Hct MCHC RDW Plt Count Lymph % (Auto) [place] % (Auto) Lymph # [place] # Seg Neutrophils % Seg Neuts % (Manual) Lymphocytes % (Manual) Seg Neutrophils # Seg Neutrophils # Man Lymphocytes # (Manual) Monocytes # (Manual) POC ABG pH ABG pH POC ABG pCO2 POC ABG pO2 ABG pO2 ABG HCO3 ABG Base Excess ABG Hemoglobin Oxyhemoglobin Sodium Potassium 3.5 L Chloride Carbon Dioxide BUN Creatinine 0.5 L Glucose 112 H POC Glucose 121 H 107 H Calcium 8.3 L Phosphorus Magnesium Direct Bilirubin AST Alkaline Phosphatase 148 H C-Reactive Protein Serum Total Protein Total Protein 5.9 L Albumin 2.4 L Prealbumin Fjnqq-9-Vdsqcozoe Ltfno-5-Gxhnekbli Gamma Globulins PEP Interpretation Triglycerides Urine pH Urine Creatinine Urine Total Protein Vancomycin Trough Digoxin Crossmatch 10/26/19 10/26/19 10/26/19 06:15 12:21 17:35 WBC RBC Hgb Hct MCHC RDW Plt Count Lymph % (Auto) [place] % (Auto) Lymph # [place] # Seg Neutrophils % Seg Neuts % (Manual) Lymphocytes % (Manual) Seg Neutrophils # Seg Neutrophils # Man Lymphocytes # (Manual) Monocytes # (Manual) POC ABG pH ABG pH POC ABG pCO2 POC ABG pO2 ABG pO2 ABG HCO3 ABG Base Excess ABG Hemoglobin Oxyhemoglobin Sodium Potassium Chloride Carbon Dioxide BUN Creatinine Glucose POC Glucose 134 H 141 H Calcium Phosphorus Magnesium Direct Bilirubin AST Alkaline Phosphatase C-Reactive Protein Serum Total Protein Total Protein Albumin Prealbumin Ureqr-4-Ecqlknnwb Wpmpf-2-Qjbkecdha Gamma Globulins PEP Interpretation Triglycerides 185 H Urine pH Urine Creatinine Urine Total Protein Vancomycin Trough Digoxin Crossmatch 10/26/19 10/27/19 10/27/19 Unknown 04:30 11:33 WBC RBC Hgb Hct MCHC RDW Plt Count Lymph % (Auto) [place] % (Auto) Lymph # [place] # Seg Neutrophils % Seg Neuts % (Manual) Lymphocytes % (Manual) Seg Neutrophils # Seg Neutrophils # Man Lymphocytes # (Manual) Monocytes # (Manual) POC ABG pH ABG pH POC ABG pCO2 POC ABG pO2 ABG pO2 ABG HCO3 ABG Base Excess ABG Hemoglobin Oxyhemoglobin Sodium Potassium 3.2 L Chloride Carbon Dioxide BUN 23 H Creatinine 0.6 L Glucose 130 H POC Glucose 131 H Calcium 7.9 L Phosphorus Magnesium Direct Bilirubin AST Alkaline Phosphatase C-Reactive Protein Serum Total Protein Total Protein Albumin Prealbumin Nkiio-6-Rgdqwingj Amrsf-8-Nkifzwfwg Gamma Globulins PEP Interpretation Triglycerides Urine pH 9.0 H Urine Creatinine Urine Total Protein Vancomycin Trough Digoxin Crossmatch 10/27/19 10/28/19 10/28/19 17:45 05:25 05:49 WBC RBC 2.85 L Hgb 8.3 L Hct 26.8 L MCHC 31 L RDW 17.4 H Plt Count Lymph % (Auto) 8.9 L [place] % (Auto) 14.3 H Lymph # 0.8 L [place] # 1.3 H Seg Neutrophils % 76.5 H Seg Neuts % (Manual) Lymphocytes % (Manual) Seg Neutrophils # Seg Neutrophils # Man Lymphocytes # (Manual) Monocytes # (Manual) POC ABG pH ABG pH POC ABG pCO2 POC ABG pO2 ABG pO2 ABG HCO3 ABG Base Excess ABG Hemoglobin Oxyhemoglobin Sodium Potassium Chloride Carbon Dioxide BUN Creatinine Glucose POC Glucose 121 H 120 H Calcium Phosphorus Magnesium Direct Bilirubin AST Alkaline Phosphatase C-Reactive Protein Serum Total Protein Total Protein Albumin Prealbumin Xysyw-7-Ircfowkqi Zllog-4-Wxiuyejvp Gamma Globulins PEP Interpretation Triglycerides Urine pH Urine Creatinine Urine Total Protein Vancomycin Trough Digoxin Crossmatch 10/28/19 10/28/19 10/28/19 07:19 12:07 18:21 WBC RBC Hgb Hct MCHC RDW Plt Count Lymph % (Auto) [place] % (Auto) Lymph # [place] # Seg Neutrophils % Seg Neuts % (Manual) Lymphocytes % (Manual) Seg Neutrophils # Seg Neutrophils # Man Lymphocytes # (Manual) Monocytes # (Manual) POC ABG pH ABG pH POC ABG pCO2 POC ABG pO2 ABG pO2 ABG HCO3 ABG Base Excess ABG Hemoglobin Oxyhemoglobin Sodium Potassium Chloride Carbon Dioxide BUN 23 H Creatinine 0.5 L Glucose 129 H POC Glucose 127 H 130 H Calcium 8.0 L Phosphorus Magnesium Direct Bilirubin AST Alkaline Phosphatase C-Reactive Protein Serum Total Protein Total Protein Albumin Prealbumin Qpbul-1-Whaqvylwo Ymzdd-8-Nwkhvoqbo Gamma Globulins PEP Interpretation Triglycerides Urine pH Urine Creatinine Urine Total Protein Vancomycin Trough Digoxin Crossmatch 10/28/19 10/29/19 10/29/19 23:30 05:30 05:30 WBC 11.2 H RBC 3.36 L Hgb 9.7 L Hct 29.4 L MCHC RDW 16.7 H Plt Count Lymph % (Auto) [place] % (Auto) 16.0 H Lymph # [place] # 1.8 H Seg Neutrophils % 70.2 H Seg Neuts % (Manual) Lymphocytes % (Manual) Seg Neutrophils # 7.9 H Seg Neutrophils # Man Lymphocytes # (Manual) Monocytes # (Manual) POC ABG pH ABG pH POC ABG pCO2 POC ABG pO2 ABG pO2 ABG HCO3 ABG Base Excess ABG Hemoglobin Oxyhemoglobin Sodium Potassium Chloride Carbon Dioxide BUN 23 H Creatinine 0.5 L Glucose POC Glucose 130 H Calcium 8.3 L Phosphorus Magnesium Direct Bilirubin AST Alkaline Phosphatase C-Reactive Protein Serum Total Protein Total Protein Albumin Prealbumin Ompgg-5-Xebfkstzz Sqaed-2-Srhtqcbxb Gamma Globulins PEP Interpretation Triglycerides Urine pH Urine Creatinine Urine Total Protein Vancomycin Trough Digoxin Crossmatch 10/29/19 10/29/19 10/29/19 05:52 13:10 18:02 WBC RBC Hgb Hct MCHC RDW Plt Count Lymph % (Auto) [place] % (Auto) Lymph # [place] # Seg Neutrophils % Seg Neuts % (Manual) Lymphocytes % (Manual) Seg Neutrophils # Seg Neutrophils # Man Lymphocytes # (Manual) Monocytes # (Manual) POC ABG pH ABG pH POC ABG pCO2 POC ABG pO2 ABG pO2 ABG HCO3 ABG Base Excess ABG Hemoglobin Oxyhemoglobin Sodium Potassium Chloride Carbon Dioxide BUN Creatinine Glucose POC Glucose 111 H 140 H 140 H Calcium Phosphorus Magnesium Direct Bilirubin AST Alkaline Phosphatase C-Reactive Protein Serum Total Protein Total Protein Albumin Prealbumin Diyrs-8-Vxjpvsnbw Beamw-3-Njcszjcsa Gamma Globulins PEP Interpretation Triglycerides Urine pH Urine Creatinine Urine Total Protein Vancomycin Trough Digoxin Crossmatch 10/29/19 10/30/19 10/30/19 23:58 01:05 05:15 WBC RBC Hgb Hct MCHC RDW Plt Count Lymph % (Auto) [place] % (Auto) Lymph # [place] # Seg Neutrophils % Seg Neuts % (Manual) Lymphocytes % (Manual) Seg Neutrophils # Seg Neutrophils # Man Lymphocytes # (Manual) Monocytes # (Manual) POC ABG pH ABG pH POC ABG pCO2 62.0 H POC ABG pO2 168 H ABG pO2 ABG HCO3 ABG Base Excess ABG Hemoglobin Oxyhemoglobin Sodium 147 H Potassium Chloride 107.8 H Carbon Dioxide BUN 26 H Creatinine 0.5 L Glucose 139 H POC Glucose 161 H Calcium Phosphorus Magnesium 2.40 H Direct Bilirubin AST Alkaline Phosphatase C-Reactive Protein Serum Total Protein Total Protein Albumin Prealbumin Xayel-6-Rhwivzpru Kmozo-1-Vzkvetmvh Gamma Globulins PEP Interpretation Triglycerides Urine pH Urine Creatinine Urine Total Protein Vancomycin Trough Digoxin Crossmatch 10/30/19 10/30/19 10/30/19 05:15 06:32 09:44 WBC 13.8 H RBC 3.59 L Hgb 10.1 L Hct 32.4 L MCHC 31 L RDW 17.4 H Plt Count Lymph % (Auto) 11.2 L [place] % (Auto) 13.6 H Lymph # [place] # 1.9 H Seg Neutrophils % 75.1 H Seg Neuts % (Manual) Lymphocytes % (Manual) Seg Neutrophils # 10.4 H Seg Neutrophils # Man Lymphocytes # (Manual) Monocytes # (Manual) POC ABG pH ABG pH POC ABG pCO2 51.7 H POC ABG pO2 111 H ABG pO2 ABG HCO3 ABG Base Excess ABG Hemoglobin Oxyhemoglobin Sodium Potassium Chloride Carbon Dioxide BUN Creatinine Glucose POC Glucose 141 H Calcium Phosphorus Magnesium Direct Bilirubin AST Alkaline Phosphatase C-Reactive Protein Serum Total Protein Total Protein Albumin Prealbumin Fzjfs-3-Nzpakibat Pgxrz-9-Kgzhnrjpl Gamma Globulins PEP Interpretation Triglycerides Urine pH Urine Creatinine Urine Total Protein Vancomycin Trough Digoxin Crossmatch 10/30/19 10/31/19 10/31/19 18:10 04:18 04:18 WBC 11.7 H RBC 3.11 L Hgb 9.0 L Hct 27.9 L MCHC RDW 17.1 H Plt Count Lymph % (Auto) [place] % (Auto) Lymph # [place] # Seg Neutrophils % Seg Neuts % (Manual) Lymphocytes % (Manual) Seg Neutrophils # Seg Neutrophils # Man Lymphocytes # (Manual) Monocytes # (Manual) POC ABG pH ABG pH POC ABG pCO2 POC ABG pO2 ABG pO2 ABG HCO3 ABG Base Excess ABG Hemoglobin Oxyhemoglobin Sodium 148 H Potassium Chloride 108.7 H Carbon Dioxide BUN 37 H Creatinine 0.7 L Glucose 102 H POC Glucose 131 H Calcium Phosphorus Magnesium Direct Bilirubin AST Alkaline Phosphatase C-Reactive Protein Serum Total Protein Total Protein Albumin Prealbumin Wcujh-1-Tbktlywrk Jvrwh-5-Cfjpqkkxi Gamma Globulins PEP Interpretation Triglycerides Urine pH Urine Creatinine Urine Total Protein Vancomycin Trough Digoxin Crossmatch 10/31/19 10/31/19 10/31/19 11:32 12:55 18:10 WBC RBC Hgb Hct MCHC RDW Plt Count Lymph % (Auto) [place] % (Auto) Lymph # [place] # Seg Neutrophils % Seg Neuts % (Manual) Lymphocytes % (Manual) Seg Neutrophils # Seg Neutrophils # Man Lymphocytes # (Manual) Monocytes # (Manual) POC ABG pH ABG pH POC ABG pCO2 57.9 H POC ABG pO2 135 H ABG pO2 ABG HCO3 ABG Base Excess ABG Hemoglobin Oxyhemoglobin Sodium Potassium Chloride Carbon Dioxide BUN Creatinine Glucose POC Glucose 120 H Calcium Phosphorus Magnesium Direct Bilirubin AST Alkaline Phosphatase C-Reactive Protein Serum Total Protein Total Protein Albumin Prealbumin Nfran-3-Xcwyvnrxz Mhfjj-1-Hfelxxnxy Gamma Globulins PEP Interpretation Triglycerides Urine pH Urine Creatinine Urine Total Protein Vancomycin Trough 41.7 H Digoxin Crossmatch 10/31/19 11/01/19 11/01/19 23:08 05:30 05:30 WBC 14.6 H RBC 3.13 L Hgb 8.9 L Hct 27.7 L MCHC RDW 17.0 H Plt Count Lymph % (Auto) [place] % (Auto) Lymph # [place] # Seg Neutrophils % Seg Neuts % (Manual) Lymphocytes % (Manual) Seg Neutrophils # Seg Neutrophils # Man Lymphocytes # (Manual) Monocytes # (Manual) POC ABG pH ABG pH POC ABG pCO2 POC ABG pO2 ABG pO2 ABG HCO3 ABG Base Excess ABG Hemoglobin Oxyhemoglobin Sodium 149 H Potassium Chloride 109.0 H Carbon Dioxide BUN 26 H Creatinine 0.7 L Glucose 129 H POC Glucose 109 H Calcium Phosphorus Magnesium Direct Bilirubin AST Alkaline Phosphatase C-Reactive Protein Serum Total Protein Total Protein Albumin Prealbumin Pcahc-0-Cghsygzwu Qvakq-1-Xctrzgowv Gamma Globulins PEP Interpretation Triglycerides Urine pH Urine Creatinine Urine Total Protein Vancomycin Trough Digoxin Crossmatch 11/01/19 11/01/19 11/01/19 06:09 06:10 11:52 WBC RBC Hgb Hct MCHC RDW Plt Count Lymph % (Auto) [place] % (Auto) Lymph # [place] # Seg Neutrophils % Seg Neuts % (Manual) Lymphocytes % (Manual) Seg Neutrophils # Seg Neutrophils # Man Lymphocytes # (Manual) Monocytes # (Manual) POC ABG pH ABG pH POC ABG pCO2 51.3 H POC ABG pO2 71 L ABG pO2 ABG HCO3 ABG Base Excess ABG Hemoglobin Oxyhemoglobin Sodium Potassium Chloride Carbon Dioxide BUN Creatinine Glucose POC Glucose 113 H 106 H Calcium Phosphorus Magnesium Direct Bilirubin AST Alkaline Phosphatase C-Reactive Protein Serum Total Protein Total Protein Albumin Prealbumin Hodig-8-Bishmhzip Nzdee-5-Qauobkikd Gamma Globulins PEP Interpretation Triglycerides Urine pH Urine Creatinine Urine Total Protein Vancomycin Trough Digoxin Crossmatch 11/01/19 11/02/19 11/02/19 18:18 03:40 03:40 WBC RBC 2.36 L Hgb 7.2 L Hct 20.8 L D MCHC 35 H RDW 16.8 H Plt Count Lymph % (Auto) [place] % (Auto) Lymph # [place] # Seg Neutrophils % Seg Neuts % (Manual) Lymphocytes % (Manual) Seg Neutrophils # Seg Neutrophils # Man Lymphocytes # (Manual) Monocytes # (Manual) POC ABG pH ABG pH POC ABG pCO2 POC ABG pO2 ABG pO2 ABG HCO3 ABG Base Excess ABG Hemoglobin Oxyhemoglobin Sodium 157 H D Potassium 3.0 L D Chloride 117.2 H Carbon Dioxide BUN 23 H Creatinine 0.6 L Glucose 101 H POC Glucose 120 H Calcium 6.4 L D Phosphorus Magnesium Direct Bilirubin AST Alkaline Phosphatase C-Reactive Protein Serum Total Protein Total Protein Albumin Prealbumin Uexlj-6-Nsfjcfrwh Jmypu-1-Qyuwmphgy Gamma Globulins PEP Interpretation Triglycerides Urine pH Urine Creatinine Urine Total Protein Vancomycin Trough Digoxin Crossmatch 11/02/19 11/02/19 11/02/19 04:48 05:30 12:43 WBC RBC Hgb Hct MCHC RDW Plt Count Lymph % (Auto) [place] % (Auto) Lymph # [place] # Seg Neutrophils % Seg Neuts % (Manual) Lymphocytes % (Manual) Seg Neutrophils # Seg Neutrophils # Man Lymphocytes # (Manual) Monocytes # (Manual) POC ABG pH ABG pH POC ABG pCO2 50.1 H POC ABG pO2 74 L ABG pO2 ABG HCO3 ABG Base Excess ABG Hemoglobin Oxyhemoglobin Sodium 149 H D Potassium Chloride 110.0 H Carbon Dioxide BUN 23 H Creatinine 0.6 L Glucose POC Glucose 109 H Calcium 8.1 L D Phosphorus Magnesium 2.40 H Direct Bilirubin AST Alkaline Phosphatase C-Reactive Protein Serum Total Protein Total Protein Albumin Prealbumin Evbyw-1-Hjeksdsrl Oopty-3-Snszbtdxu Gamma Globulins PEP Interpretation Triglycerides Urine pH Urine Creatinine Urine Total Protein Vancomycin Trough Digoxin Crossmatch 11/03/19 11/03/19 11/03/19 03:42 03:42 04:13 WBC RBC 2.93 L Hgb 8.5 L Hct 25.8 L MCHC RDW 16.9 H Plt Count Lymph % (Auto) [place] % (Auto) Lymph # [place] # Seg Neutrophils % Seg Neuts % (Manual) Lymphocytes % (Manual) Seg Neutrophils # Seg Neutrophils # Man Lymphocytes # (Manual) Monocytes # (Manual) POC ABG pH 7.540 H ABG pH POC ABG pCO2 POC ABG pO2 51 L ABG pO2 ABG HCO3 ABG Base Excess ABG Hemoglobin Oxyhemoglobin Sodium 147 H Potassium 3.5 L D Chloride 108.6 H Carbon Dioxide BUN Creatinine 0.6 L Glucose 109 H POC Glucose Calcium 8.3 L Phosphorus Magnesium Direct Bilirubin AST Alkaline Phosphatase C-Reactive Protein Serum Total Protein Total Protein Albumin Prealbumin Iihgi-6-Ixxdvjspk Hycwk-4-Tgxturveg Gamma Globulins PEP Interpretation Triglycerides Urine pH Urine Creatinine Urine Total Protein Vancomycin Trough Digoxin Crossmatch 11/03/19 11/03/19 11/03/19 04:28 12:04 23:02 WBC RBC Hgb Hct MCHC RDW Plt Count Lymph % (Auto) [place] % (Auto) Lymph # [place] # Seg Neutrophils % Seg Neuts % (Manual) Lymphocytes % (Manual) Seg Neutrophils # Seg Neutrophils # Man Lymphocytes # (Manual) Monocytes # (Manual) POC ABG pH ABG pH POC ABG pCO2 45.4 H POC ABG pO2 ABG pO2 ABG HCO3 ABG Base Excess ABG Hemoglobin Oxyhemoglobin Sodium Potassium Chloride Carbon Dioxide BUN Creatinine Glucose POC Glucose 109 H 111 H Calcium Phosphorus Magnesium Direct Bilirubin AST Alkaline Phosphatase C-Reactive Protein Serum Total Protein Total Protein Albumin Prealbumin Aedhs-3-Rgqszhhzz Asedv-0-Uatcplkzr Gamma Globulins PEP Interpretation Triglycerides Urine pH Urine Creatinine Urine Total Protein Vancomycin Trough Digoxin Crossmatch 11/04/19 11/04/19 11/04/19 05:00 05:00 05:19 WBC RBC 2.96 L Hgb 8.6 L Hct 25.5 L MCHC RDW 16.7 H Plt Count Lymph % (Auto) [place] % (Auto) Lymph # [place] # Seg Neutrophils % Seg Neuts % (Manual) Lymphocytes % (Manual) Seg Neutrophils # Seg Neutrophils # Man Lymphocytes # (Manual) Monocytes # (Manual) POC ABG pH ABG pH POC ABG pCO2 POC ABG pO2 ABG pO2 ABG HCO3 ABG Base Excess ABG Hemoglobin Oxyhemoglobin Sodium Potassium 3.5 L Chloride Carbon Dioxide BUN Creatinine 0.5 L Glucose 111 H POC Glucose 106 H Calcium 8.1 L Phosphorus Magnesium Direct Bilirubin AST Alkaline Phosphatase C-Reactive Protein Serum Total Protein Total Protein Albumin Prealbumin Lwifd-1-Ocyrwjswt Rlyxm-3-Bfuercgsb Gamma Globulins PEP Interpretation Triglycerides Urine pH Urine Creatinine Urine Total Protein Vancomycin Trough Digoxin Crossmatch 11/04/19 11/05/19 11/05/19 12:40 00:28 04:19 WBC 12.4 H RBC 2.98 L Hgb 8.5 L Hct 25.5 L MCHC RDW 16.6 H Plt Count Lymph % (Auto) [place] % (Auto) Lymph # [place] # Seg Neutrophils % Seg Neuts % (Manual) Lymphocytes % (Manual) Seg Neutrophils # Seg Neutrophils # Man Lymphocytes # (Manual) Monocytes # (Manual) POC ABG pH ABG pH POC ABG pCO2 POC ABG pO2 ABG pO2 ABG HCO3 ABG Base Excess ABG Hemoglobin Oxyhemoglobin Sodium Potassium Chloride Carbon Dioxide BUN Creatinine Glucose POC Glucose 109 H 132 H Calcium Phosphorus Magnesium Direct Bilirubin AST Alkaline Phosphatase C-Reactive Protein Serum Total Protein Total Protein Albumin Prealbumin Rxmxd-0-Aaubcoblm Zzldo-1-Ahczzawse Gamma Globulins PEP Interpretation Triglycerides Urine pH Urine Creatinine Urine Total Protein Vancomycin Trough Digoxin Crossmatch 11/05/19 11/05/19 11/05/19 04:19 05:40 13:14 WBC RBC Hgb Hct MCHC RDW Plt Count Lymph % (Auto) [place] % (Auto) Lymph # [place] # Seg Neutrophils % Seg Neuts % (Manual) Lymphocytes % (Manual) Seg Neutrophils # Seg Neutrophils # Man Lymphocytes # (Manual) Monocytes # (Manual) POC ABG pH ABG pH POC ABG pCO2 POC ABG pO2 ABG pO2 ABG HCO3 ABG Base Excess ABG Hemoglobin Oxyhemoglobin Sodium Potassium 3.4 L Chloride Carbon Dioxide BUN Creatinine 0.4 L Glucose 106 H POC Glucose 136 H 145 H Calcium 8.2 L Phosphorus Magnesium Direct Bilirubin AST Alkaline Phosphatase C-Reactive Protein Serum Total Protein Total Protein Albumin Prealbumin Flrok-1-Kfvydjhmd Wmlef-2-Wvvpxphte Gamma Globulins PEP Interpretation Triglycerides Urine pH Urine Creatinine Urine Total Protein Vancomycin Trough Digoxin Crossmatch 11/05/19 11/05/19 18:29 23:42 WBC RBC Hgb Hct MCHC RDW Plt Count Lymph % (Auto) [place] % (Auto) Lymph # [place] # Seg Neutrophils % Seg Neuts % (Manual) Lymphocytes % (Manual) Seg Neutrophils # Seg Neutrophils # Man Lymphocytes # (Manual) Monocytes # (Manual) POC ABG pH ABG pH POC ABG pCO2 POC ABG pO2 ABG pO2 ABG HCO3 ABG Base Excess ABG Hemoglobin Oxyhemoglobin Sodium Potassium Chloride Carbon Dioxide BUN Creatinine Glucose POC Glucose 138 H 117 H Calcium Phosphorus Magnesium Direct Bilirubin AST Alkaline Phosphatase C-Reactive Protein Serum Total Protein Total Protein Albumin Prealbumin Gefju-3-Dgewfrzsk Rwmmx-6-Vvyyarblt Gamma Globulins PEP Interpretation Triglycerides Urine pH Urine Creatinine Urine Total Protein Vancomycin Trough Digoxin Crossmatch Chest x-ray: report reviewed, image reviewed (clearing of bilateral infiltrates)
[2019-11-06] MEDS: IPRATROPIUM/ALBUTEROL SULFATE 3 ML AMPUL.NEB IH SCH ×4 (01:11→20:51)
[2019-11-06] MEDS: INSULIN LISPRO 100 UNIT/ML SUB-Q SCH ×4 (02:26→18:10)
[2019-11-06] MEDS: MEROPENEM/NS 1 GRAM/100 ML 1 GRAM/100 ML BAG IV SCH ×3 (02:29→18:09)
--- NOTE | 2019-11-06 02:40 | XRay Report ---
CHEST 1 VIEW INDICATION: PTX. COMPARISON: Exam is compared 11/01/2019 FINDINGS: SUPPORT DEVICES: PICC line significant position. Small bore chest tubes present left hemithorax HEART / MEDIASTINUM: No significant abnormality. LUNGS / PLEURA: Minimum parenchymal changes present right lower lobe is small right pleural effusion. Moderate size left pleural effusion is present. No pneumothorax. ADDITIONAL FINDINGS: IMPRESSION: 1. Increased pleural effusions bilaterally with chest tube present on the left Signer Name: Yusuf Rocha MD Signed: 11/06/2019 2:35 AM Workstation Name: [employer]
[2019-11-06] MEDS: HYDROmorphone 2 MG/1 ML INJ IV PRN ×2 (06:34→14:01)
[2019-11-06] MEDS: METOPROLOL TARTRATE 50 MG TAB PO SCH ×3 (06:34→21:13)
[2019-11-06 06:39] LABS: Hematocrit 24.9 % (35.5-45.6); Hemoglobin 8.2 gm/dl (11.8-15.2); Mean Corpuscular HGB Conc 33 % (32-34); Mean Corpuscular Volume 86 fl (84-94); Platelet Count 321 K/mm3 (140-440); Red Blood Count 2.89 M/mm3 (3.65-5.03); Red Cell Distribution Width 16.4 % (13.2-15.2)
[2019-11-06 07:16] LABS: BUN/Creatinine Ratio 28; Blood Urea Nitrogen 11 mg/dL (9-20); Calcium 8.2 mg/dL (8.4-10.2); Hemolysis Index 3
[2019-11-06] MEDS: BUDESONIDE 0.5 MG/2 ML NEBU IH SCH ×2 (07:31→20:51)
[2019-11-06] MEDS: LISINOPRIL 20 MG TAB PO SCH (09:03)
[2019-11-06] MEDS: CITALOPRAM 20 MG TAB PO SCH (09:03)
[2019-11-06] MEDS: PANTOPRAZOLE 40 MG INJ IV SCH (09:03)
[2019-11-06] MEDS: AMIODARONE 200 MG TAB PO SCH (09:03)
--- NOTE | 2019-11-06 09:49 | Progress Note ---
Assessment and Plan - Patient Problems (1) Dehiscence of closure of fascia, superficial or muscular Current Visit: No Status: Acute Qualifiers: Encounter type: initial encounter Qualified Code(s): T81.32XA - Disruption of internal operation (surgical) wound, not elsewhere classified, initial encounter Plan to address problem: Pt stable. s/p ex lap with closure of abdominal wall and wound vac placement (10/05) - POD#32; s/p Re-exploration, washout, transection of colon, Abthera placement - 10/13 - POD#24; s/p abd washout, partial omentectomy, partial colectomy with colostomy - 10/16 POD#21. s/p abd washout, feeding tube placement, AbThera placement - 10/19 - POD#18; Abdominal washout and closure - 10/22 - POD#15 Patient appears stable. WBC stable. Rec: 1) Neuro - self-extubated 11/04. 2) CV - BP normal today 3) Resp - On NC. Small bore CT on left. Mgmt per ICU team. 4) GI - Ostomy looks good. Functioning. Sump drains - Right drain was accidentally pulled out (10/30). Left one is still functioning. New small bore catheter placed 10/30 - moderate output after drain was stripped. Appears like stool. Plan to connect both to wall suction - contin uous. Output trending down. Wound Vac - wound looked good on last check. continue wound vac. Ostomy - functioning now. Gastric Port - Appears to be tolerating the clamping. Residuals are minimal. 5) - BUN/Cr stable. 6) ID - Abx per ID. Enterococcus on cultures. If patient has worsening labs/vitals, then rescan and place additional drains as appropriate. 7) Nutrition - Tube feeds at goal. Would consider Speech therapy eval again for swallowing. 8) DVT prophylaxis - SCDs. Lovenox 9) Family -no family at bedside. Spoke to on phone. 10) PT - will need rehab. Note: Spoke with [facility] surgeon on 11/01/19 about possible transfer. They reviewed the notes that were sent and we discussed the case. They felt that they had nothing else to offer. They agreed with our management. Also agreed that another exploration should not be done. If needed, additional drains can be placed. They did suggest putting a [place] tube in the rectum to decompress that area. (That has been done). This conversation was communicated to the . Please call with questions. Subjective Date of service: 11/06/19 Patient Reports: Positive: other (no new events) Objective Vital Signs - 12hr 11/05/19 11/05/19 11/05/19 22:00 22:02 22:30 Temperature Pulse Rate 80 79 76 Pulse Rate [ Anterior Bilateral Throughout] Pulse Rate [ From Monitor] Respiratory 26 H 27 H 26 H Rate Respiratory Rate [Anterior Bilateral Throughout] Blood Pressure 134/58 134/58 142/65 O2 Sat by Pulse 93 95 94 Oximetry 11/05/19 11/05/19 11/05/19 23:00 23:20 23:30 Temperature 98.8 F Pulse Rate 75 74 Pulse Rate [ Anterior Bilateral Throughout] Pulse Rate [ From Monitor] Respiratory 25 H 19 Rate Respiratory Rate [Anterior Bilateral Throughout] Blood Pressure 134/62 118/55 O2 Sat by Pulse 95 95 Oximetry 11/06/19 11/06/19 11/06/19 00:00 00:30 01:00 Temperature Pulse Rate 72 72 73 Pulse Rate [ Anterior Bilateral Throughout] Pulse Rate [ 78 From Monitor] Respiratory 19 17 18 Rate Respiratory Rate [Anterior Bilateral Throughout] Blood Pressure 119/54 112/53 114/50 O2 Sat by Pulse 95 95 95 Oximetry 11/06/19 11/06/19 11/06/19 01:12 01:30 02:00 Temperature Pulse Rate 74 79 Pulse Rate [ 76 Anterior Bilateral Throughout] Pulse Rate [ From Monitor] Respiratory 18 24 Rate Respiratory 20 Rate [Anterior Bilateral Throughout] Blood Pressure 124/46 123/65 O2 Sat by Pulse 96 96 Oximetry 11/06/19 11/06/19 11/06/19 02:30 03:00 03:05 Temperature 97.4 F L Pulse Rate 76 74 Pulse Rate [ Anterior Bilateral Throughout] Pulse Rate [ From Monitor] Respiratory 22 22 Rate Respiratory Rate [Anterior Bilateral Throughout] Blood Pressure 118/53 114/53 O2 Sat by Pulse 95 94 Oximetry 11/06/19 11/06/19 11/06/19 03:30 04:00 04:30 Temperature Pulse Rate 75 76 74 Pulse Rate [ Anterior Bilateral Throughout] Pulse Rate [ 78 From Monitor] Respiratory 22 23 21 Rate Respiratory Rate [Anterior Bilateral Throughout] Blood Pressure 121/59 108/59 124/56 O2 Sat by Pulse 95 96 94 Oximetry 11/06/19 11/06/19 11/06/19 05:00 05:30 06:00 Temperature Pulse Rate 76 78 Pulse Rate [ Anterior Bilateral Throughout] Pulse Rate [ From Monitor] Respiratory 25 H 26 H Rate Respiratory Rate [Anterior Bilateral Throughout] Blood Pressure 120/54 120/57 124/58 O2 Sat by Pulse 95 93 94 Oximetry 11/06/19 11/06/19 11/06/19 06:30 06:34 07:00 Temperature Pulse Rate 78 78 Pulse Rate [ Anterior Bilateral Throughout] Pulse Rate [ From Monitor] Respiratory 18 Rate Respiratory Rate [Anterior Bilateral Throughout] Blood Pressure 122/92 122/92 123/52 O2 Sat by Pulse 93 93 Oximetry 11/06/19 11/06/19 11/06/19 07:30 07:31 07:32 Temperature Pulse Rate 74 Pulse Rate [ 74 Anterior Bilateral Throughout] Pulse Rate [ From Monitor] Respiratory 16 Rate Respiratory 17 Rate [Anterior Bilateral Throughout] Blood Pressure 115/57 O2 Sat by Pulse 96 98 Oximetry 11/06/19 11/06/19 11/06/19 08:00 08:30 09:03 Temperature 99.2 F Pulse Rate 76 75 73 Pulse Rate [ Anterior Bilateral Throughout] Pulse Rate [ From Monitor] Respiratory 17 17 Rate Respiratory Rate [Anterior Bilateral Throughout] Blood Pressure 119/59 124/59 125/56 O2 Sat by Pulse 97 97 Oximetry - General physical appearance no distress, no pain, obese - Respiratory normal expansion, normal respiratory effort - Abdomen soft, not distended, other (wound vac in place with serosang drainage. Pigtail catheter and sump drain on the left with guardado colored drainage. Colostomy vialble with small amount of stool on it. ) - Labs 11/06/19 05:00 11/06/19 05:00 Diabetes panel 11/06/19 Range/Units 05:00 Sodium 140 (137-145) mmol/L Potassium 3.7 (3.6-5.0) mmol/L Chloride 100.5 (98-107) mmol/L Carbon Dioxide 26 (22-30) mmol/L BUN 11 (9-20) mg/dL Creatinine 0.4 L (0.8-1.5) mg/dL Glucose 114 H (75-100) mg/dL Calcium 8.2 L (8.4-10.2) mg/dL Calcium panel 11/06/19 Range/Units 05:00 Calcium 8.2 L (8.4-10.2) mg/dL Pituitary panel 11/06/19 Range/Units 05:00 Sodium 140 (137-145) mmol/L Potassium 3.7 (3.6-5.0) mmol/L Chloride 100.5 (98-107) mmol/L Carbon Dioxide 26 (22-30) mmol/L BUN 11 (9-20) mg/dL Creatinine 0.4 L (0.8-1.5) mg/dL Glucose 114 H (75-100) mg/dL Calcium 8.2 L (8.4-10.2) mg/dL Adrenal panel 11/06/19 Range/Units 05:00 Sodium 140 (137-145) mmol/L Potassium 3.7 (3.6-5.0) mmol/L Chloride 100.5 (98-107) mmol/L Carbon Dioxide 26 (22-30) mmol/L BUN 11 (9-20) mg/dL Creatinine 0.4 L (0.8-1.5) mg/dL Glucose 114 H (75-100) mg/dL Calcium 8.2 L (8.4-10.2) mg/dL
[2019-11-06] MEDS: MICAFUNGIN 100 MG in SODIUM CHLORIDE 0.9% 100 ML IV SCH (10:35)
--- NOTE | 2019-11-06 10:35 | Progress Note ---
Assessment and Plan Cultures 10/10/2019 surgical culture: No growth at 72 hours 10/13/2019 tracheal aspirate culture: No growth 10/13/2019 peritoneal fluid: Enterococcus species (S to Penicillin, Vancomycin) 10/15/2019 blood culture: no growth 10/26/2019 urine culture: no growth thus far 10/26/2019 blood culture: no growth at 24 hours Assessment: 54 yo M PMhx CAD, COPD, recent complicated course of bowel perforation after a colonoscopy admitted with surgical site dehiscence of the fascia. Now with: # Acute sepsis - present with leukocytosis and tachycardia. Most likely secondary to fluid collection/abscess in the abdomen and anastomotic leak. # New fevers: new fevers on 10/25 and 10/26. Ongoing work up and empiric abx. Has indwelling PICC, [place] was removed 10/26. UA unremarkable for infection. # Intra-abdominal infection from anastomotic leak - s/p ex lap with closure of abdominal wall and wound vac placement (10/05/2019); s/p Re-exploration, washout, transection of colon, Abthera placement - 10/13/2019. s/p re- exploration and colostomy creation on 10/16/2019, intra-operatively was found to have "Small amount of continued leak from the old anastomotic site. Some contamination still present. Bowel was all viable". Back on OR on 10/19/2019, findings "small leak from stump staple line". OR again on 10/22/2019 for: Abdominal washout. Closure of abdominal fascia. Wound vac placement. Findings, "contamination from the sigmoid stump closure site". New drain placed 10/30 with stool-lik output. # COPD, acute respiratory failure: s/p extubation. On high flow O2. # Penicillin allergy - likely not a true allergy, reviewed EMR for previous exposure to PCNs, patient received several days of Zosyn in 2018 without issue. Recs: - given recent prolonged exposure to abx and TPN, at risk of MDR infections, candidemia, continue empiric Meropenem and Micafungin - Continue to monitor WBC. Stable now. Worsening count or fevers would be indic ation for re-scan. Will follow. Dr. Pineda taking over tomorrow. [facility] M: [phone] O: [phone] F: [phone] Subjective Date of service: 11/06/19 Principal diagnosis: acute renal failure Interval history: Afebrile, white count stable slightly elevated Objective - Exam Narrative Exam: Constitutional: awake, alert, no distress Head, Ears, Nose: Normocephalic, atraumatic. External ears, nose normal Eyes: Conjunctivae/corneas clear. No icterus. No ptosis. Neck: supple, no meningeal signs Oral: no thrush Cardiovascular: S1, S2 normal. Respiratory: rhonchi bilaterally GI: Midline abdominal VAC. bowel sounds +, Colostomy + drains + Musculoskeletal: anasarca, pedal edema + but improving Skin: No rash or abscess Hem/Lymphatic: No palpable cervical or supraclavicular nodes. No lymphangitis Psych: no agitation Neurological: awake, alert - Constitutional Vitals: Vital Signs Temp Pulse Resp BP Pulse Ox 99.2 F 73 17 125/56 97 11/06/19 08:00 11/06/19 09:03 11/06/19 08:30 11/06/19 09:03 11/06/19 08:30 Temperature -Last 24 Hours Temperature 99.2 F Temperature 97.4 F Temperature 98.8 F Temperature 98.2 F Temperature 97.5 F Temperature 97.5 F - Labs CBC & Chem 7: 11/06/19 05:00 11/06/19 05:00 Labs: Abnormal lab results 11/05/19 11/05/19 11/05/19 Range/Units 13:14 18:29 23:42 WBC (4.5-11.0) K/mm3 RBC (3.65-5.03) M/mm3 Hgb (11.8-15.2) gm/dl Hct (35.5-45.6) % RDW (13.2-15.2) % Creatinine (0.8-1.5) mg/dL Glucose (75-100) mg/dL POC Glucose 145 H 138 H 117 H (70-105) Calcium (8.4-10.2) mg/dL 11/06/19 11/06/19 11/06/19 Range/Units 05:00 05:00 05:22 WBC 12.2 H (4.5-11.0) K/mm3 RBC 2.89 L (3.65-5.03) M/mm3 Hgb 8.2 L (11.8-15.2) gm/dl Hct 24.9 L (35.5-45.6) % RDW 16.4 H (13.2-15.2) % Creatinine 0.4 L (0.8-1.5) mg/dL Glucose 114 H (75-100) mg/dL POC Glucose 121 H (70-105) Calcium 8.2 L (8.4-10.2) mg/dL
--- NOTE | 2019-11-06 13:26 | Progress Note ---
Assessment and Plan 54 y/o male with anastomic leak 11/06: Chest tube intact. No air leak. Will ask IR if catheter can be pulled out normally (i.e. not some form of tunneled catheter). If so will have them take it out later this week. If IMCU beds available, good candidate for there, likely not quite ready for floor yet. 11/04: Stable self extubation. Continue chest tube to suction. Will likely start waterseal tomorrow. [place] maybe to get CT out Tuesday. All other drains per surgery. Encouraged use of IS regularly at the bedside and suctioning as needed per . 11/03: Looks clinically better. Na was better on repeat labs. Spoke with and surgery to update them both. Most likely will attempt extubation in the am. Will hold feeds for about an hour in the morning prior to extubation then restart. 11/02: Repeat labs this am. Hard time believing that 2 liters of normal saline made his sodium increase that much. Also, once i discuss with surgery, may consider giving more blood. Will also hold tube feeds briefly as well. In case any procedures. Lovenox held last night. Continue vent support 11/01: Spoke with Dr. Krause this am and understand his concerns. Have started the transfer process. Most ICU's throughout the city are on diversion or full. [facility] has received his Faces[facility] and we are awaiting to hear back from them. CXR is clear. Minimal vent settings. Will continue supportive care for now. Follow up any new ID recs given increasing white and fever. 10/31: Will check CXR tomorrow. Continue chest tube to suction. Will likely stay in until extubated. Continue drains. Explained to staff to be extremely careful with these drains so that they do not come out. 10/30: Acute on chronic respiratory failure requiring reintubation. Appreciate Anesthesia assistance as he was a difficult intubation when we had to change his tube out about 1 week ago. Will continue on 100% until after Scans and then start to wean back down. CXR yesterday looked like pulmonary edema but improved today with positive pressure. Continue supportive care and await results of scans. 10/29: Discussed today on rounds. Patient had some issues over the weekend with the ICE chips and liquids. Will obtain speech consult/eval prior to restarting clears today. Spoke with nutrition and they will adjust tube feeds with new goal. Once at goal will start to taper off TPN. ordered Incentive madhu to bedside. Will also restart home dose of elaine today. pain control and drainage monitoring. Will continue ICU care. 10/26: Patient stable overall. Not ready for floor. Would be ok with step down if beds are needed. If spikes temp again will order blood cultures x2, urine culture, UA and repeat CXR. Gave an additional 40 of lasix this am. Will give more potassium replacement. Continue trickle feeds for now. Will continue PO meds and restart home dose of citalopram. Wean FiO2 and flow for sats >88%. Mildly hypertensive but this was secondary to agitation. Normalizing now. 10/25: Will extubate today. Will use HFNC if distress or hypoxemia is noted. Not a good candidate for bipap given his recent abdominal issues. Spoke with who is now at bedside and surgery. Will continue to attempt to achieve net negative state daily. Hold on further albumin administration. Hypernatremia is iatrogenic from lasix administration Worse case scenario, will re-intubate with anesthesia. 10/24: Responding well to lasix and protein therapy. Will give 2 more doses of lasix today. Consider one for tonight as well. Last albumin today at 1800. CXR is stable, still with layering bilateral pleural effusions. Will reassess again tomorrow. Reviewed all other advanced manufacturing consultant notes. Spoke with sisters at bedside, updated and spoke with surgery. 10/23: Long discussion with surgery and via phone. Anasarca is likely from decreased oncotic pressure and immobility of several days now that abdomen is finally closed. Now fluid is essentially leaking into the interstitium now that the abdomen is shut and there is increased intra-abdominal pressure. Total Protein is 4.5 and albumin is 1.2. This is to be expected given current illness. Will attempt to increase oncotic pressure with 2 units of PRBC's and albumin infusions for the next 24 hours starting at midnight tonight. Will give lasix inbetween transfusions and then again tonight. CXR is consistent with pulmonary edema volume overload. Will continue vent for now and after significant volume removal then will attempt extubation. Discussed with and she understands. Will continue to monitor. Agree with trickle feeds and cards has switched amio over to PO to be given through the G-tube. If tolerates, hopeful to be rid of TPN soon as this is necessary but excessive volume as well. 10/22: Added diprovan as more sedation was needed. Hopefully once closed and no leaks, patient can be extubated. Cards very concerned about length of time for IV amio. Will discuss with surgery the time frame that gut can be used. 10/21: Will hold on weaning until abdomen is closed, especially knowing mental status is good. Will focus on pain control. Replace electrolytes. Appreciate Surgery recs and detail. Follow up any new recs from cards. Or tomorrow for closure CCT 31 minutes. Subjective Date of service: 11/06/19 Principal diagnosis: acute renal failure Interval history: No acute events. Awake and alert. at bedside. Stable on nasal cannula. Objective Vital Signs - 12hr 11/06/19 11/06/19 11/06/19 01:30 02:00 02:30 Temperature Pulse Rate 74 79 76 Pulse Rate [ Anterior Bilateral Throughout] Pulse Rate [ From Monitor] Respiratory 18 24 22 Rate Respiratory Rate [Anterior Bilateral Throughout] Blood Pressure 124/46 123/65 118/53 O2 Sat by Pulse 96 96 95 Oximetry 11/06/19 11/06/19 11/06/19 03:00 03:05 03:30 Temperature 97.4 F L Pulse Rate 74 75 Pulse Rate [ Anterior Bilateral Throughout] Pulse Rate [ From Monitor] Respiratory 22 22 Rate Respiratory Rate [Anterior Bilateral Throughout] Blood Pressure 114/53 121/59 O2 Sat by Pulse 94 95 Oximetry 11/06/19 11/06/19 11/06/19 04:00 04:30 05:00 Temperature Pulse Rate 76 74 76 Pulse Rate [ Anterior Bilateral Throughout] Pulse Rate [ 78 From Monitor] Respiratory 23 21 25 H Rate Respiratory Rate [Anterior Bilateral Throughout] Blood Pressure 108/59 124/56 120/54 O2 Sat by Pulse 96 94 95 Oximetry 11/06/19 11/06/19 11/06/19 05:30 06:00 06:30 Temperature Pulse Rate 78 Pulse Rate [ Anterior Bilateral Throughout] Pulse Rate [ From Monitor] Respiratory 26 H Rate Respiratory Rate [Anterior Bilateral Throughout] Blood Pressure 120/57 124/58 122/92 O2 Sat by Pulse 93 94 93 Oximetry 11/06/19 11/06/19 11/06/19 06:34 07:00 07:30 Temperature Pulse Rate 78 78 74 Pulse Rate [ Anterior Bilateral Throughout] Pulse Rate [ From Monitor] Respiratory 18 16 Rate Respiratory Rate [Anterior Bilateral Throughout] Blood Pressure 122/92 123/52 115/57 O2 Sat by Pulse 93 96 Oximetry 11/06/19 11/06/19 11/06/19 07:31 07:32 08:00 Temperature 99.2 F Pulse Rate 75 Pulse Rate [ 74 Anterior Bilateral Throughout] Pulse Rate [ 75 From Monitor] Respiratory 20 Rate Respiratory 17 Rate [Anterior Bilateral Throughout] Blood Pressure 119/59 O2 Sat by Pulse 98 95 Oximetry 11/06/19 11/06/19 11/06/19 08:30 09:00 09:03 Temperature Pulse Rate 75 74 73 Pulse Rate [ Anterior Bilateral Throughout] Pulse Rate [ From Monitor] Respiratory 17 16 Rate Respiratory Rate [Anterior Bilateral Throughout] Blood Pressure 124/59 125/56 125/56 O2 Sat by Pulse 97 96 Oximetry 11/06/19 11/06/19 11/06/19 09:30 10:00 10:30 Temperature Pulse Rate 75 75 75 Pulse Rate [ Anterior Bilateral Throughout] Pulse Rate [ From Monitor] Respiratory 18 18 17 Rate Respiratory Rate [Anterior Bilateral Throughout] Blood Pressure 110/61 110/61 119/62 O2 Sat by Pulse 100 98 98 Oximetry 11/06/19 12:00 Temperature 98.6 F Pulse Rate Pulse Rate [ Anterior Bilateral Throughout] Pulse Rate [ From Monitor] Respiratory Rate Respiratory Rate [Anterior Bilateral Throughout] Blood Pressure O2 Sat by Pulse Oximetry Constitutional: no acute distress, alert Eyes: non-icteric ENT: oropharynx moist Neck: supple Effort: mildly labored Ascultation: Bilateral: diminished breath sounds (bases) Cardiovascular: regular rate and rhythm (no mrg) Gastrointestinal: non-tender, other (obese, distended) Integumentary: normal Extremities: no cyanosis, pink and warm, edema (1+ bilateral LE edema) Neurologic: normal mental status, non-focal exam, pupils equal and round Psychiatric: mood appropriate, affect normal CBC and BMP: 11/06/19 05:00 11/06/19 05:00 ABG, PT/INR, D-dimer: ABG POC ABG pH 7.422 (7.35-7.45) 11/03/19 04:28 ABG pH 7.390 pH Units (7.350-7.450) 10/23/19 04:47 POC ABG pCO2 45.4 (35-45) H 11/03/19 04:28 ABG pCO2 48.4 mm Hg 10/23/19 04:47 POC ABG pO2 83 (80-105) 11/03/19 04:28 ABG pO2 68.9 mm Hg (80.0-90.0) L 10/23/19 04:47 POC ABG HCO3 29.6 (22-26 mml/L) 11/03/19 04:28 POC ABG Total CO2 31 (23-27mmol/L) 11/03/19 04:28 POC ABG O2 Sat 96 11/03/19 04:28 ABG O2 Saturation 96.6 % (95.0-99.0) 10/23/19 04:47 Abnormal lab findings: Abnormal Labs 10/06/19 10/06/19 10/07/19 05:36 05:36 05:54 WBC 21.8 H 21.5 H RBC 3.55 L Hgb 10.9 L Hct 32.7 L MCHC RDW Plt Count Lymph % (Auto) Cooper % (Auto) Lymph # Cooper # Seg Neutrophils % Seg Neuts % (Manual) 91.0 H Lymphocytes % (Manual) 2.0 L Seg Neutrophils # Seg Neutrophils # Man 19.8 H Lymphocytes # (Manual) 0.4 L Monocytes # (Manual) 1.1 H POC ABG pH ABG pH POC ABG pCO2 POC ABG pO2 ABG pO2 ABG HCO3 ABG Base Excess ABG Hemoglobin Oxyhemoglobin Sodium 135 L Potassium Chloride 95.9 L Carbon Dioxide BUN Creatinine 0.7 L Glucose POC Glucose Calcium Phosphorus Magnesium Direct Bilirubin AST Alkaline Phosphatase C-Reactive Protein Serum Total Protein Total Protein 5.7 L Albumin 2.5 L Prealbumin Qrnop-1-Olhkungmk Vzovp-4-Mdvgofgkx Gamma Globulins PEP Interpretation Triglycerides Urine pH Urine Creatinine Urine Total Protein Vancomycin Trough Digoxin Crossmatch 10/07/19 10/09/19 10/09/19 05:54 10:52 10:52 WBC 16.6 H RBC Hgb Hct MCHC RDW Plt Count 498 H Lymph % (Auto) [place] % (Auto) Lymph # [place] # Seg Neutrophils % Seg Neuts % (Manual) 93.0 H Lymphocytes % (Manual) 5.0 L Seg Neutrophils # Seg Neutrophils # Man 15.4 H Lymphocytes # (Manual) 0.8 L Monocytes # (Manual) POC ABG pH ABG pH POC ABG pCO2 POC ABG pO2 ABG pO2 ABG HCO3 ABG Base Excess ABG Hemoglobin Oxyhemoglobin Sodium Potassium Chloride 97.9 L Carbon Dioxide 20 L D BUN 23 H Creatinine 1.7 H D Glucose 109 H POC Glucose Calcium 8.1 L Phosphorus Magnesium Direct Bilirubin AST Alkaline Phosphatase C-Reactive Protein Serum Total Protein Total Protein Albumin Prealbumin Vhkpm-4-Mcfdwogkf Fhber-0-Eyfmdebzp Gamma Globulins PEP Interpretation Triglycerides Urine pH Urine Creatinine Urine Total Protein Vancomycin Trough Digoxin Crossmatch 10/09/19 10/10/19 10/10/19 17:23 05:30 05:30 WBC 14.6 H RBC Hgb 11.1 L Hct 33.5 L MCHC RDW Plt Count 527 H Lymph % (Auto) [place] % (Auto) Lymph # [place] # Seg Neutrophils % Seg Neuts % (Manual) Lymphocytes % (Manual) Seg Neutrophils # Seg Neutrophils # Man Lymphocytes # (Manual) Monocytes # (Manual) POC ABG pH ABG pH POC ABG pCO2 POC ABG pO2 ABG pO2 ABG HCO3 ABG Base Excess ABG Hemoglobin Oxyhemoglobin Sodium 130 L D Potassium 5.1 H Chloride 90.0 L 91.0 L Carbon Dioxide 20 L 20 L BUN 27 H 35 H Creatinine 1.9 H 2.0 H Glucose 104 H POC Glucose Calcium Phosphorus Magnesium Direct Bilirubin AST Alkaline Phosphatase C-Reactive Protein Serum Total Protein Total Protein Albumin Prealbumin Jhsgu-4-Dgchmmowg Wklbo-4-Misjujjpu Gamma Globulins PEP Interpretation Triglycerides Urine pH Urine Creatinine Urine Total Protein Vancomycin Trough Digoxin Crossmatch 10/10/19 10/10/19 10/11/19 08:33 08:44 05:41 WBC 13.2 H RBC Hgb 11.3 L Hct 33.8 L MCHC RDW 15.3 H Plt Count 543 H Lymph % (Auto) [place] % (Auto) Lymph # [place] # Seg Neutrophils % Seg Neuts % (Manual) Lymphocytes % (Manual) Seg Neutrophils # Seg Neutrophils # Man Lymphocytes # (Manual) Monocytes # (Manual) POC ABG pH ABG pH POC ABG pCO2 POC ABG pO2 ABG pO2 ABG HCO3 ABG Base Excess ABG Hemoglobin Oxyhemoglobin Sodium Potassium Chloride Carbon Dioxide BUN Creatinine Glucose 113 H POC Glucose 117 H Calcium Phosphorus Magnesium Direct Bilirubin AST Alkaline Phosphatase C-Reactive Protein Serum Total Protein Total Protein Albumin Prealbumin Sqjtm-7-Uwfacbore Rrxiu-1-Bvftdmnfq Gamma Globulins PEP Interpretation Triglycerides Urine pH Urine Creatinine Urine Total Protein Vancomycin Trough Digoxin Crossmatch 10/11/19 10/11/19 10/11/19 05:41 06:23 06:23 WBC RBC Hgb Hct MCHC RDW Plt Count Lymph % (Auto) [place] % (Auto) Lymph # [place] # Seg Neutrophils % Seg Neuts % (Manual) Lymphocytes % (Manual) Seg Neutrophils # Seg Neutrophils # Man Lymphocytes # (Manual) Monocytes # (Manual) POC ABG pH ABG pH POC ABG pCO2 POC ABG pO2 ABG pO2 ABG HCO3 ABG Base Excess ABG Hemoglobin Oxyhemoglobin Sodium 134 L Potassium Chloride 96.3 L Carbon Dioxide BUN 37 H Creatinine Glucose 58 L POC Glucose Calcium Phosphorus 4.90 H Magnesium Direct Bilirubin AST Alkaline Phosphatase C-Reactive Protein Serum Total Protein Total Protein Albumin Prealbumin Odclw-7-Rvuucatul Fzytk-0-Feaftizfc Gamma Globulins PEP Interpretation Triglycerides Urine pH Urine Creatinine 118.2 H 116.8 H Urine Total Protein 105 H 104 H Vancomycin Trough Digoxin Crossmatch 10/11/19 10/12/19 10/12/19 09:00 06:09 06:09 WBC 13.8 H RBC 3.39 L Hgb 10.2 L Hct 30.9 L MCHC RDW 15.5 H Plt Count 459 H Lymph % (Auto) [place] % (Auto) Lymph # [place] # Seg Neutrophils % Seg Neuts % (Manual) Lymphocytes % (Manual) Seg Neutrophils # Seg Neutrophils # Man Lymphocytes # (Manual) Monocytes # (Manual) POC ABG pH ABG pH POC ABG pCO2 POC ABG pO2 ABG pO2 ABG HCO3 ABG Base Excess ABG Hemoglobin Oxyhemoglobin Sodium 131 L Potassium Chloride 96.2 L Carbon Dioxide 21 L BUN 43 H Creatinine Glucose 72 L POC Glucose Calcium Phosphorus Magnesium Direct Bilirubin AST Alkaline Phosphatase C-Reactive Protein Serum Total Protein 5.2 L Total Protein Albumin 1.9 L Prealbumin Lnugc-6-Hspgjyihw 0.9 H Jovjh-3-Dkaaqvnpv 1.0 H Gamma Globulins 0.7 L PEP Interpretation see below H Triglycerides Urine pH Urine Creatinine Urine Total Protein Vancomycin Trough Digoxin Crossmatch 10/12/19 10/12/19 10/12/19 08:20 09:30 09:30 WBC RBC Hgb Hct MCHC RDW Plt Count Lymph % (Auto) [place] % (Auto) Lymph # [place] # Seg Neutrophils % Seg Neuts % (Manual) Lymphocytes % (Manual) Seg Neutrophils # Seg Neutrophils # Man Lymphocytes # (Manual) Monocytes # (Manual) POC ABG pH ABG pH POC ABG pCO2 POC ABG pO2 63 L ABG pO2 ABG HCO3 ABG Base Excess ABG Hemoglobin Oxyhemoglobin Sodium Potassium Chloride Carbon Dioxide BUN Creatinine Glucose POC Glucose Calcium Phosphorus Magnesium 2.50 H Direct Bilirubin 0.3 H AST Alkaline Phosphatase C-Reactive Protein Serum Total Protein Total Protein 5.1 L Albumin 2.2 L Prealbumin Ziqop-0-Ivhpnrbep Znjtc-0-Nhxvoeybh Gamma Globulins PEP Interpretation Triglycerides Urine pH Urine Creatinine Urine Total Protein Vancomycin Trough Digoxin Crossmatch 10/13/19 10/13/19 10/13/19 04:20 04:20 13:20 WBC 15.7 H RBC 3.64 L Hgb 10.9 L Hct 33.1 L MCHC RDW 15.8 H Plt Count 488 H Lymph % (Auto) [place] % (Auto) Lymph # [place] # Seg Neutrophils % Seg Neuts % (Manual) Lymphocytes % (Manual) Seg Neutrophils # Seg Neutrophils # Man Lymphocytes # (Manual) Monocytes # (Manual) POC ABG pH ABG pH POC ABG pCO2 POC ABG pO2 ABG pO2 ABG HCO3 ABG Base Excess ABG Hemoglobin Oxyhemoglobin Sodium Potassium Chloride Carbon Dioxide BUN 28 H Creatinine Glucose POC Glucose Calcium Phosphorus Magnesium Direct Bilirubin AST Alkaline Phosphatase C-Reactive Protein Serum Total Protein Total Protein Albumin Prealbumin Iretr-2-Smpopjlst Fzwic-9-Qnojsbykw Gamma Globulins PEP Interpretation Triglycerides Urine pH Urine Creatinine Urine Total Protein Vancomycin Trough Digoxin Crossmatch See Detail 10/13/19 10/13/19 10/14/19 18:24 20:05 04:47 WBC 24.2 H RBC Hgb 10.9 L Hct 34.2 L MCHC RDW 17.0 H Plt Count 442 H Lymph % (Auto) [place] % (Auto) Lymph # [place] # Seg Neutrophils % Seg Neuts % (Manual) Lymphocytes % (Manual) Seg Neutrophils # Seg Neutrophils # Man Lymphocytes # (Manual) Monocytes # (Manual) POC ABG pH ABG pH 7.180 L* 7.278 L POC ABG pCO2 POC ABG pO2 ABG pO2 130.7 H ABG HCO3 ABG Base Excess -6.5 L -6.5 L ABG Hemoglobin 12.2 L 12.3 L Oxyhemoglobin 92.9 L Sodium Potassium Chloride Carbon Dioxide BUN Creatinine Glucose POC Glucose Calcium Phosphorus Magnesium Direct Bilirubin AST Alkaline Phosphatase C-Reactive Protein Serum Total Protein Total Protein Albumin Prealbumin Phlef-8-Lditmespy Efzyv-2-Hazoucpnr Gamma Globulins PEP Interpretation Triglycerides Urine pH Urine Creatinine Urine Total Protein Vancomycin Trough Digoxin Crossmatch 10/14/19 10/14/19 10/14/19 04:47 05:40 10:14 WBC RBC Hgb Hct MCHC RDW Plt Count Lymph % (Auto) [place] % (Auto) Lymph # [place] # Seg Neutrophils % Seg Neuts % (Manual) Lymphocytes % (Manual) Seg Neutrophils # Seg Neutrophils # Man Lymphocytes # (Manual) Monocytes # (Manual) POC ABG pH ABG pH POC ABG pCO2 POC ABG pO2 ABG pO2 76.3 L ABG HCO3 19.1 L ABG Base Excess -5.8 L ABG Hemoglobin 10.9 L Oxyhemoglobin 93.4 L Sodium Potassium 5.1 H D Chloride 109.2 H Carbon Dioxide 17 L BUN 38 H Creatinine 1.8 H D Glucose 104 H POC Glucose Calcium 7.4 L Phosphorus 5.60 H Magnesium Direct Bilirubin AST Alkaline Phosphatase C-Reactive Protein Serum Total Protein Total Protein Albumin Prealbumin Kmzra-7-Zckaabnsl Gxfou-2-Nfaqtikth Gamma Globulins PEP Interpretation Triglycerides Urine pH Urine Creatinine Urine Total Protein Vancomycin Trough Digoxin Crossmatch 10/14/19 10/15/19 10/15/19 23:46 04:32 04:32 WBC 15.5 H RBC 2.89 L Hgb 8.8 L Hct 27.3 L D MCHC RDW 16.6 H Plt Count Lymph % (Auto) [place] % (Auto) Lymph # [place] # Seg Neutrophils % Seg Neuts % (Manual) Lymphocytes % (Manual) Seg Neutrophils # Seg Neutrophils # Man Lymphocytes # (Manual) Monocytes # (Manual) POC ABG pH ABG pH POC ABG pCO2 POC ABG pO2 ABG pO2 ABG HCO3 ABG Base Excess ABG Hemoglobin Oxyhemoglobin Sodium 147 H Potassium Chloride 114.0 H Carbon Dioxide 19 L BUN 42 H Creatinine Glucose 112 H POC Glucose 113 H Calcium 7.3 L Phosphorus Magnesium Direct Bilirubin AST 72 H Alkaline Phosphatase C-Reactive Protein 30.60 H Serum Total Protein Total Protein 4.0 L D Albumin 1.7 L Prealbumin 0.030 L Bzeez-5-Redzvdxwg Gbxey-0-Lhliqzkje Gamma Globulins PEP Interpretation Triglycerides Urine pH Urine Creatinine Urine Total Protein Vancomycin Trough Digoxin Crossmatch 10/15/19 10/15/19 10/15/19 05:30 12:08 17:23 WBC RBC Hgb Hct MCHC RDW Plt Count Lymph % (Auto) [place] % (Auto) Lymph # [place] # Seg Neutrophils % Seg Neuts % (Manual) Lymphocytes % (Manual) Seg Neutrophils # Seg Neutrophils # Man Lymphocytes # (Manual) Monocytes # (Manual) POC ABG pH ABG pH 7.296 L POC ABG pCO2 POC ABG pO2 ABG pO2 114.7 H ABG HCO3 ABG Base Excess -3.7 L ABG Hemoglobin 8.9 L Oxyhemoglobin Sodium Potassium Chloride Carbon Dioxide BUN Creatinine Glucose POC Glucose 106 H 106 H Calcium Phosphorus Magnesium Direct Bilirubin AST Alkaline Phosphatase C-Reactive Protein Serum Total Protein Total Protein Albumin Prealbumin Apwsa-1-Jhimrmxoo Xdvnz-6-Blamdzvvj Gamma Globulins PEP Interpretation Triglycerides Urine pH Urine Creatinine Urine Total Protein Vancomycin Trough Digoxin Crossmatch 10/16/19 10/16/19 10/16/19 00:07 04:44 05:24 WBC RBC Hgb Hct MCHC RDW Plt Count Lymph % (Auto) [place] % (Auto) Lymph # [place] # Seg Neutrophils % Seg Neuts % (Manual) Lymphocytes % (Manual) Seg Neutrophils # Seg Neutrophils # Man Lymphocytes # (Manual) Monocytes # (Manual) POC ABG pH ABG pH POC ABG pCO2 POC ABG pO2 ABG pO2 ABG HCO3 ABG Base Excess ABG Hemoglobin Oxyhemoglobin Sodium 150 H Potassium Chloride 115.8 H Carbon Dioxide BUN 35 H Creatinine Glucose 129 H POC Glucose 119 H 129 H Calcium 7.3 L Phosphorus 1.80 L D Magnesium Direct Bilirubin AST Alkaline Phosphatase C-Reactive Protein Serum Total Protein Total Protein Albumin Prealbumin Uiwdl-4-Wrzczbpdy Wmfjs-9-Waxcwwwze Gamma Globulins PEP Interpretation Triglycerides Urine pH Urine Creatinine Urine Total Protein Vancomycin Trough Digoxin Crossmatch 10/16/19 10/16/19 10/16/19 06:53 09:20 11:58 WBC 14.6 H RBC 2.70 L Hgb 8.1 L Hct 25.2 L MCHC RDW 16.7 H Plt Count Lymph % (Auto) [place] % (Auto) Lymph # [place] # Seg Neutrophils % Seg Neuts % (Manual) 79.0 H Lymphocytes % (Manual) 4.0 L Seg Neutrophils # Seg Neutrophils # Man 11.5 H Lymphocytes # (Manual) 0.6 L Monocytes # (Manual) POC ABG pH ABG pH POC ABG pCO2 47.0 H POC ABG pO2 ABG pO2 ABG HCO3 ABG Base Excess ABG Hemoglobin Oxyhemoglobin Sodium Potassium Chloride Carbon Dioxide BUN Creatinine Glucose POC Glucose Calcium Phosphorus Magnesium Direct Bilirubin AST Alkaline Phosphatase C-Reactive Protein Serum Total Protein Total Protein Albumin Prealbumin Oxyaj-4-Jajyeyaqf Wqceq-5-Rslvkpgmr Gamma Globulins PEP Interpretation Triglycerides Urine pH Urine Creatinine Urine Total Protein Vancomycin Trough Digoxin Crossmatch See Detail 10/16/19 10/16/19 10/16/19 15:23 17:50 23:58 WBC RBC Hgb Hct MCHC RDW Plt Count Lymph % (Auto) [place] % (Auto) Lymph # [place] # Seg Neutrophils % Seg Neuts % (Manual) Lymphocytes % (Manual) Seg Neutrophils # Seg Neutrophils # Man Lymphocytes # (Manual) Monocytes # (Manual) POC ABG pH ABG pH POC ABG pCO2 POC ABG pO2 ABG pO2 ABG HCO3 ABG Base Excess ABG Hemoglobin Oxyhemoglobin Sodium Potassium Chloride Carbon Dioxide BUN Creatinine Glucose POC Glucose 221 H 201 H 179 H Calcium Phosphorus Magnesium Direct Bilirubin AST Alkaline Phosphatase C-Reactive Protein Serum Total Protein Total Protein Albumin Prealbumin Qibye-6-Qcunjklhp Cmqix-5-Eitkguncj Gamma Globulins PEP Interpretation Triglycerides Urine pH Urine Creatinine Urine Total Protein Vancomycin Trough Digoxin Crossmatch 10/17/19 10/17/19 10/17/19 04:08 04:08 05:41 WBC 22.3 H RBC 3.35 L Hgb 10.0 L Hct 31.2 L D MCHC RDW 16.1 H Plt Count Lymph % (Auto) [place] % (Auto) Lymph # [place] # Seg Neutrophils % Seg Neuts % (Manual) Lymphocytes % (Manual) Seg Neutrophils # Seg Neutrophils # Man Lymphocytes # (Manual) Monocytes # (Manual) POC ABG pH 7.310 L ABG pH POC ABG pCO2 52.8 H POC ABG pO2 70 L ABG pO2 ABG HCO3 ABG Base Excess ABG Hemoglobin Oxyhemoglobin Sodium 147 H Potassium Chloride 114.9 H Carbon Dioxide BUN 36 H Creatinine Glucose 165 H POC Glucose Calcium 6.9 L Phosphorus 2.20 L D Magnesium Direct Bilirubin AST Alkaline Phosphatase C-Reactive Protein Serum Total Protein Total Protein Albumin Prealbumin Iarpm-8-Syozrltsb Arhhm-5-Hxufrwwyv Gamma Globulins PEP Interpretation Triglycerides Urine pH Urine Creatinine Urine Total Protein Vancomycin Trough Digoxin Crossmatch 10/17/19 10/17/19 10/17/19 05:42 11:33 18:17 WBC RBC Hgb Hct MCHC RDW Plt Count Lymph % (Auto) [place] % (Auto) Lymph # [place] # Seg Neutrophils % Seg Neuts % (Manual) Lymphocytes % (Manual) Seg Neutrophils # Seg Neutrophils # Man Lymphocytes # (Manual) Monocytes # (Manual) POC ABG pH ABG pH POC ABG pCO2 POC ABG pO2 ABG pO2 ABG HCO3 ABG Base Excess ABG Hemoglobin Oxyhemoglobin Sodium Potassium Chloride Carbon Dioxide BUN Creatinine Glucose POC Glucose 149 H 154 H 163 H Calcium Phosphorus Magnesium Direct Bilirubin AST Alkaline Phosphatase C-Reactive Protein Serum Total Protein Total Protein Albumin Prealbumin Lzvjr-2-Wvrtiglzv Dbbwb-5-Ilmdzbjyt Gamma Globulins PEP Interpretation Triglycerides Urine pH Urine Creatinine Urine Total Protein Vancomycin Trough Digoxin Crossmatch 10/17/19 10/18/19 10/18/19 23:34 03:29 04:50 WBC RBC Hgb Hct MCHC RDW Plt Count Lymph % (Auto) [place] % (Auto) Lymph # [place] # Seg Neutrophils % Seg Neuts % (Manual) Lymphocytes % (Manual) Seg Neutrophils # Seg Neutrophils # Man Lymphocytes # (Manual) Monocytes # (Manual) POC ABG pH ABG pH POC ABG pCO2 POC ABG pO2 ABG pO2 78.8 L ABG HCO3 ABG Base Excess ABG Hemoglobin 8.8 L Oxyhemoglobin Sodium Potassium Chloride 111.8 H Carbon Dioxide BUN 27 H Creatinine 0.6 L Glucose 140 H POC Glucose 135 H Calcium 7.1 L Phosphorus 1.80 L Magnesium Direct Bilirubin AST Alkaline Phosphatase C-Reactive Protein Serum Total Protein Total Protein Albumin Prealbumin Tcarv-8-Bzdvehbym Hsxnx-0-Nigwiadmz Gamma Globulins PEP Interpretation Triglycerides Urine pH Urine Creatinine Urine Total Protein Vancomycin Trough Digoxin Crossmatch 10/18/19 10/18/19 10/18/19 05:45 11:19 18:26 WBC RBC Hgb Hct MCHC RDW Plt Count Lymph % (Auto) [place] % (Auto) Lymph # [place] # Seg Neutrophils % Seg Neuts % (Manual) Lymphocytes % (Manual) Seg Neutrophils # Seg Neutrophils # Man Lymphocytes # (Manual) Monocytes # (Manual) POC ABG pH ABG pH POC ABG pCO2 POC ABG pO2 ABG pO2 ABG HCO3 ABG Base Excess ABG Hemoglobin Oxyhemoglobin Sodium Potassium Chloride Carbon Dioxide BUN Creatinine Glucose POC Glucose 145 H 152 H 125 H Calcium Phosphorus Magnesium Direct Bilirubin AST Alkaline Phosphatase C-Reactive Protein Serum Total Protein Total Protein Albumin Prealbumin Wjvev-5-Zoclxfusf Ewtzt-4-Dtjcrsqiz Gamma Globulins PEP Interpretation Triglycerides Urine pH Urine Creatinine Urine Total Protein Vancomycin Trough Digoxin Crossmatch 10/18/19 10/19/19 10/19/19 23:27 04:21 04:21 WBC RBC Hgb Hct MCHC RDW Plt Count Lymph % (Auto) [place] % (Auto) Lymph # [place] # Seg Neutrophils % Seg Neuts % (Manual) Lymphocytes % (Manual) Seg Neutrophils # Seg Neutrophils # Man Lymphocytes # (Manual) Monocytes # (Manual) POC ABG pH ABG pH POC ABG pCO2 POC ABG pO2 ABG pO2 ABG HCO3 ABG Base Excess ABG Hemoglobin Oxyhemoglobin Sodium Potassium Chloride 108.4 H Carbon Dioxide BUN 22 H Creatinine 0.5 L Glucose 123 H POC Glucose 127 H Calcium 7.4 L Phosphorus 1.80 L Magnesium Direct Bilirubin AST Alkaline Phosphatase C-Reactive Protein Serum Total Protein Total Protein Albumin Prealbumin Vgjvs-0-Qakwemhvn Caiqs-0-Hetbrxazk Gamma Globulins PEP Interpretation Triglycerides Urine pH Urine Creatinine Urine Total Protein Vancomycin Trough Digoxin 0.7 L Crossmatch 10/19/19 10/19/19 10/19/19 05:00 05:35 11:26 WBC RBC Hgb Hct MCHC RDW Plt Count Lymph % (Auto) [place] % (Auto) Lymph # [place] # Seg Neutrophils % Seg Neuts % (Manual) Lymphocytes % (Manual) Seg Neutrophils # Seg Neutrophils # Man Lymphocytes # (Manual) Monocytes # (Manual) POC ABG pH ABG pH 7.456 H POC ABG pCO2 POC ABG pO2 ABG pO2 78.8 L ABG HCO3 ABG Base Excess ABG Hemoglobin 5.6 L Oxyhemoglobin Sodium Potassium Chloride Carbon Dioxide BUN Creatinine Glucose POC Glucose 124 H 111 H Calcium Phosphorus Magnesium Direct Bilirubin AST Alkaline Phosphatase C-Reactive Protein Serum Total Protein Total Protein Albumin Prealbumin Kwowy-8-Vhfmadzvg Vafkf-3-Cvlwvmifh Gamma Globulins PEP Interpretation Triglycerides Urine pH Urine Creatinine Urine Total Protein Vancomycin Trough Digoxin Crossmatch 10/19/19 10/20/19 10/20/19 23:23 04:50 05:17 WBC RBC Hgb Hct MCHC RDW Plt Count Lymph % (Auto) [place] % (Auto) Lymph # [place] # Seg Neutrophils % Seg Neuts % (Manual) Lymphocytes % (Manual) Seg Neutrophils # Seg Neutrophils # Man Lymphocytes # (Manual) Monocytes # (Manual) POC ABG pH ABG pH POC ABG pCO2 POC ABG pO2 ABG pO2 ABG HCO3 ABG Base Excess ABG Hemoglobin Oxyhemoglobin Sodium Potassium Chloride 108.1 H Carbon Dioxide BUN Creatinine 0.4 L Glucose 134 H POC Glucose 129 H 123 H Calcium 7.1 L Phosphorus Magnesium Direct Bilirubin AST Alkaline Phosphatase C-Reactive Protein Serum Total Protein Total Protein Albumin Prealbumin Kzmxa-6-Ozhxdsqqr Diely-4-Uhznylnmp Gamma Globulins PEP Interpretation Triglycerides Urine pH Urine Creatinine Urine Total Protein Vancomycin Trough Digoxin Crossmatch 10/20/19 10/20/19 10/21/19 11:40 19:06 05:08 WBC RBC Hgb Hct MCHC RDW Plt Count Lymph % (Auto) [place] % (Auto) Lymph # [place] # Seg Neutrophils % Seg Neuts % (Manual) Lymphocytes % (Manual) Seg Neutrophils # Seg Neutrophils # Man Lymphocytes # (Manual) Monocytes # (Manual) POC ABG pH ABG pH POC ABG pCO2 POC ABG pO2 ABG pO2 ABG HCO3 ABG Base Excess ABG Hemoglobin Oxyhemoglobin Sodium Potassium Chloride Carbon Dioxide BUN Creatinine Glucose POC Glucose 139 H 117 H 131 H Calcium Phosphorus Magnesium Direct Bilirubin AST Alkaline Phosphatase C-Reactive Protein Serum Total Protein Total Protein Albumin Prealbumin Mqfad-2-Fkvmbpfmm Ckdno-3-Sedlnbxhy Gamma Globulins PEP Interpretation Triglycerides Urine pH Urine Creatinine Urine Total Protein Vancomycin Trough Digoxin Crossmatch 10/21/19 10/21/19 10/21/19 05:30 12:04 17:31 WBC RBC Hgb Hct MCHC RDW Plt Count Lymph % (Auto) [place] % (Auto) Lymph # [place] # Seg Neutrophils % Seg Neuts % (Manual) Lymphocytes % (Manual) Seg Neutrophils # Seg Neutrophils # Man Lymphocytes # (Manual) Monocytes # (Manual) POC ABG pH ABG pH POC ABG pCO2 POC ABG pO2 ABG pO2 ABG HCO3 ABG Base Excess ABG Hemoglobin Oxyhemoglobin Sodium Potassium Chloride 107.8 H Carbon Dioxide BUN Creatinine 0.5 L Glucose 119 H POC Glucose 119 H 110 H Calcium 7.6 L Phosphorus Magnesium Direct Bilirubin AST Alkaline Phosphatase C-Reactive Protein Serum Total Protein Total Protein Albumin Prealbumin Ojyiw-6-Dcvygcofs Qckfj-8-Ezzzgwkyd Gamma Globulins PEP Interpretation Triglycerides Urine pH Urine Creatinine Urine Total Protein Vancomycin Trough Digoxin Crossmatch 10/22/19 10/22/19 10/22/19 05:14 05:37 12:07 WBC RBC Hgb Hct MCHC RDW Plt Count Lymph % (Auto) [place] % (Auto) Lymph # [place] # Seg Neutrophils % Seg Neuts % (Manual) Lymphocytes % (Manual) Seg Neutrophils # Seg Neutrophils # Man Lymphocytes # (Manual) Monocytes # (Manual) POC ABG pH ABG pH POC ABG pCO2 POC ABG pO2 ABG pO2 ABG HCO3 ABG Base Excess ABG Hemoglobin Oxyhemoglobin Sodium Potassium Chloride Carbon Dioxide BUN Creatinine 0.5 L Glucose 116 H POC Glucose 110 H 126 H Calcium 7.7 L Phosphorus Magnesium Direct Bilirubin AST Alkaline Phosphatase C-Reactive Protein Serum Total Protein Total Protein Albumin Prealbumin Ihnmi-9-Tbpadkwxn Jvkde-6-Qmmfmkzxj Gamma Globulins PEP Interpretation Triglycerides Urine pH Urine Creatinine Urine Total Protein Vancomycin Trough Digoxin Crossmatch 10/22/19 10/22/19 10/23/19 18:36 23:19 04:39 WBC RBC Hgb Hct MCHC RDW Plt Count Lymph % (Auto) [place] % (Auto) Lymph # [place] # Seg Neutrophils % Seg Neuts % (Manual) Lymphocytes % (Manual) Seg Neutrophils # Seg Neutrophils # Man Lymphocytes # (Manual) Monocytes # (Manual) POC ABG pH ABG pH POC ABG pCO2 POC ABG pO2 ABG pO2 ABG HCO3 ABG Base Excess ABG Hemoglobin Oxyhemoglobin Sodium Potassium Chloride Carbon Dioxide BUN Creatinine Glucose POC Glucose 120 H 127 H 112 H Calcium Phosphorus Magnesium Direct Bilirubin AST Alkaline Phosphatase C-Reactive Protein Serum Total Protein Total Protein Albumin Prealbumin Erkgz-1-Mxsdflnkd Sglaa-6-Xnjlgiada Gamma Globulins PEP Interpretation Triglycerides Urine pH Urine Creatinine Urine Total Protein Vancomycin Trough Digoxin Crossmatch 10/23/19 10/23/19 10/23/19 04:47 05:15 10:44 WBC 18.3 H RBC 2.33 L Hgb 7.0 L Hct 21.5 L MCHC RDW 16.2 H Plt Count Lymph % (Auto) 4.9 L [place] % (Auto) 8.1 H Lymph # 0.9 L [place] # 1.5 H Seg Neutrophils % 86.7 H Seg Neuts % (Manual) Lymphocytes % (Manual) Seg Neutrophils # 15.9 H Seg Neutrophils # Man Lymphocytes # (Manual) Monocytes # (Manual) POC ABG pH ABG pH POC ABG pCO2 POC ABG pO2 ABG pO2 68.9 L ABG HCO3 28.7 H ABG Base Excess 3.4 H ABG Hemoglobin 6.6 L Oxyhemoglobin 94.1 L Sodium Potassium Chloride Carbon Dioxide BUN Creatinine 0.5 L Glucose 165 H POC Glucose Calcium 7.4 L Phosphorus Magnesium Direct Bilirubin AST Alkaline Phosphatase C-Reactive Protein Serum Total Protein Total Protein Albumin Prealbumin Thfeh-5-Dczpcfcge Skdxu-8-Sytumkhcp Gamma Globulins PEP Interpretation Triglycerides Urine pH Urine Creatinine Urine Total Protein Vancomycin Trough Digoxin Crossmatch 10/23/19 10/23/19 10/23/19 10:44 11:46 11:50 WBC RBC Hgb Hct MCHC RDW Plt Count Lymph % (Auto) [place] % (Auto) Lymph # [place] # Seg Neutrophils % Seg Neuts % (Manual) Lymphocytes % (Manual) Seg Neutrophils # Seg Neutrophils # Man Lymphocytes # (Manual) Monocytes # (Manual) POC ABG pH ABG pH POC ABG pCO2 POC ABG pO2 ABG pO2 ABG HCO3 ABG Base Excess ABG Hemoglobin Oxyhemoglobin Sodium Potassium Chloride Carbon Dioxide BUN Creatinine Glucose POC Glucose 138 H Calcium Phosphorus Magnesium Direct Bilirubin 0.7 H AST Alkaline Phosphatase C-Reactive Protein Serum Total Protein Total Protein 4.5 L Albumin 1.2 L Prealbumin Fxkbr-4-Cygifvkap Rievj-2-Qeezkzqdo Gamma Globulins PEP Interpretation Triglycerides Urine pH Urine Creatinine Urine Total Protein Vancomycin Trough Digoxin Crossmatch See Detail 10/23/19 10/24/19 10/24/19 17:53 00:07 05:05 WBC RBC Hgb Hct MCHC RDW Plt Count Lymph % (Auto) [place] % (Auto) Lymph # [place] # Seg Neutrophils % Seg Neuts % (Manual) Lymphocytes % (Manual) Seg Neutrophils # Seg Neutrophils # Man Lymphocytes # (Manual) Monocytes # (Manual) POC ABG pH ABG pH POC ABG pCO2 POC ABG pO2 ABG pO2 ABG HCO3 ABG Base Excess ABG Hemoglobin Oxyhemoglobin Sodium Potassium 3.5 L Chloride Carbon Dioxide BUN Creatinine 0.5 L Glucose 116 H POC Glucose 137 H 110 H Calcium 8.0 L Phosphorus Magnesium Direct Bilirubin AST Alkaline Phosphatase C-Reactive Protein Serum Total Protein Total Protein Albumin Prealbumin Lembv-7-Yvewdatjk Nzeyq-9-Ktrxjcvsu Gamma Globulins PEP Interpretation Triglycerides Urine pH Urine Creatinine Urine Total Protein Vancomycin Trough Digoxin Crossmatch 10/24/19 10/24/19 10/24/19 05:05 11:56 13:00 WBC 13.0 H RBC 2.73 L Hgb 8.0 L Hct 24.2 L MCHC RDW 17.9 H Plt Count Lymph % (Auto) 7.0 L [place] % (Auto) 9.5 H Lymph # 0.9 L [place] # 1.2 H Seg Neutrophils % 82.7 H Seg Neuts % (Manual) Lymphocytes % (Manual) Seg Neutrophils # 10.7 H Seg Neutrophils # Man Lymphocytes # (Manual) Monocytes # (Manual) POC ABG pH ABG pH POC ABG pCO2 POC ABG pO2 ABG pO2 ABG HCO3 ABG Base Excess ABG Hemoglobin Oxyhemoglobin Sodium Potassium Chloride Carbon Dioxide BUN Creatinine Glucose POC Glucose 159 H Calcium Phosphorus Magnesium Direct Bilirubin AST Alkaline Phosphatase C-Reactive Protein Serum Total Protein Total Protein Albumin Prealbumin Pcjmi-1-Vlivdmogk Wvskd-3-Mgwehcedm Gamma Globulins PEP Interpretation Triglycerides 216 H Urine pH Urine Creatinine Urine Total Protein Vancomycin Trough Digoxin Crossmatch 10/24/19 10/24/19 10/25/19 17:42 23:45 04:19 WBC RBC Hgb Hct MCHC RDW Plt Count Lymph % (Auto) [place] % (Auto) Lymph # [place] # Seg Neutrophils % Seg Neuts % (Manual) Lymphocytes % (Manual) Seg Neutrophils # Seg Neutrophils # Man Lymphocytes # (Manual) Monocytes # (Manual) POC ABG pH ABG pH POC ABG pCO2 POC ABG pO2 ABG pO2 ABG HCO3 ABG Base Excess ABG Hemoglobin Oxyhemoglobin Sodium 147 H Potassium Chloride Carbon Dioxide 33 H BUN Creatinine 0.5 L Glucose 111 H POC Glucose 120 H 116 H Calcium Phosphorus Magnesium Direct Bilirubin AST Alkaline Phosphatase C-Reactive Protein Serum Total Protein Total Protein 5.7 L D Albumin 2.5 L Prealbumin Lequk-3-Tusxlqplo Strje-5-Lhzxulllj Gamma Globulins PEP Interpretation Triglycerides 230 H Urine pH Urine Creatinine Urine Total Protein Vancomycin Trough Digoxin Crossmatch 10/25/19 10/25/19 10/25/19 04:19 05:31 12:20 WBC RBC 2.69 L Hgb 8.1 L Hct 23.9 L MCHC RDW 17.3 H Plt Count Lymph % (Auto) [place] % (Auto) Lymph # [place] # Seg Neutrophils % Seg Neuts % (Manual) Lymphocytes % (Manual) Seg Neutrophils # Seg Neutrophils # Man Lymphocytes # (Manual) Monocytes # (Manual) POC ABG pH ABG pH POC ABG pCO2 POC ABG pO2 ABG pO2 ABG HCO3 ABG Base Excess ABG Hemoglobin Oxyhemoglobin Sodium Potassium Chloride Carbon Dioxide BUN Creatinine Glucose POC Glucose 126 H 114 H Calcium Phosphorus Magnesium Direct Bilirubin AST Alkaline Phosphatase C-Reactive Protein Serum Total Protein Total Protein Albumin Prealbumin Nqahr-7-Srmeywjcj Qfyir-1-Nomgbwipa Gamma Globulins PEP Interpretation Triglycerides Urine pH Urine Creatinine Urine Total Protein Vancomycin Trough Digoxin Crossmatch 10/25/19 10/25/19 10/26/19 18:30 23:09 06:15 WBC RBC Hgb Hct MCHC RDW Plt Count Lymph % (Auto) [place] % (Auto) Lymph # [place] # Seg Neutrophils % Seg Neuts % (Manual) Lymphocytes % (Manual) Seg Neutrophils # Seg Neutrophils # Man Lymphocytes # (Manual) Monocytes # (Manual) POC ABG pH ABG pH POC ABG pCO2 POC ABG pO2 ABG pO2 ABG HCO3 ABG Base Excess ABG Hemoglobin Oxyhemoglobin Sodium Potassium 3.5 L Chloride Carbon Dioxide BUN Creatinine 0.5 L Glucose 112 H POC Glucose 121 H 107 H Calcium 8.3 L Phosphorus Magnesium Direct Bilirubin AST Alkaline Phosphatase 148 H C-Reactive Protein Serum Total Protein Total Protein 5.9 L Albumin 2.4 L Prealbumin Cgrnw-3-Bmqowtmkp Zeijg-0-Uojlbrtwt Gamma Globulins PEP Interpretation Triglycerides Urine pH Urine Creatinine Urine Total Protein Vancomycin Trough Digoxin Crossmatch 10/26/19 10/26/19 10/26/19 06:15 12:21 17:35 WBC RBC Hgb Hct MCHC RDW Plt Count Lymph % (Auto) [place] % (Auto) Lymph # [place] # Seg Neutrophils % Seg Neuts % (Manual) Lymphocytes % (Manual) Seg Neutrophils # Seg Neutrophils # Man Lymphocytes # (Manual) Monocytes # (Manual) POC ABG pH ABG pH POC ABG pCO2 POC ABG pO2 ABG pO2 ABG HCO3 ABG Base Excess ABG Hemoglobin Oxyhemoglobin Sodium Potassium Chloride Carbon Dioxide BUN Creatinine Glucose POC Glucose 134 H 141 H Calcium Phosphorus Magnesium Direct Bilirubin AST Alkaline Phosphatase C-Reactive Protein Serum Total Protein Total Protein Albumin Prealbumin Nnmda-2-Maxragqao Pvmhf-8-Gddxzbkyb Gamma Globulins PEP Interpretation Triglycerides 185 H Urine pH Urine Creatinine Urine Total Protein Vancomycin Trough Digoxin Crossmatch 10/26/19 10/27/19 10/27/19 Unknown 04:30 11:33 WBC RBC Hgb Hct MCHC RDW Plt Count Lymph % (Auto) [place] % (Auto) Lymph # [place] # Seg Neutrophils % Seg Neuts % (Manual) Lymphocytes % (Manual) Seg Neutrophils # Seg Neutrophils # Man Lymphocytes # (Manual) Monocytes # (Manual) POC ABG pH ABG pH POC ABG pCO2 POC ABG pO2 ABG pO2 ABG HCO3 ABG Base Excess ABG Hemoglobin Oxyhemoglobin Sodium Potassium 3.2 L Chloride Carbon Dioxide BUN 23 H Creatinine 0.6 L Glucose 130 H POC Glucose 131 H Calcium 7.9 L Phosphorus Magnesium Direct Bilirubin AST Alkaline Phosphatase C-Reactive Protein Serum Total Protein Total Protein Albumin Prealbumin Ucbjy-7-Pildvftmb Csjws-8-Txbygujbg Gamma Globulins PEP Interpretation Triglycerides Urine pH 9.0 H Urine Creatinine Urine Total Protein Vancomycin Trough Digoxin Crossmatch 10/27/19 10/28/19 10/28/19 17:45 05:25 05:49 WBC RBC 2.85 L Hgb 8.3 L Hct 26.8 L MCHC 31 L RDW 17.4 H Plt Count Lymph % (Auto) 8.9 L [place] % (Auto) 14.3 H Lymph # 0.8 L [place] # 1.3 H Seg Neutrophils % 76.5 H Seg Neuts % (Manual) Lymphocytes % (Manual) Seg Neutrophils # Seg Neutrophils # Man Lymphocytes # (Manual) Monocytes # (Manual) POC ABG pH ABG pH POC ABG pCO2 POC ABG pO2 ABG pO2 ABG HCO3 ABG Base Excess ABG Hemoglobin Oxyhemoglobin Sodium Potassium Chloride Carbon Dioxide BUN Creatinine Glucose POC Glucose 121 H 120 H Calcium Phosphorus Magnesium Direct Bilirubin AST Alkaline Phosphatase C-Reactive Protein Serum Total Protein Total Protein Albumin Prealbumin Wseqs-0-Eomocrnjn Dnrzx-6-Zxmrndtih Gamma Globulins PEP Interpretation Triglycerides Urine pH Urine Creatinine Urine Total Protein Vancomycin Trough Digoxin Crossmatch 10/28/19 10/28/19 10/28/19 07:19 12:07 18:21 WBC RBC Hgb Hct MCHC RDW Plt Count Lymph % (Auto) [place] % (Auto) Lymph # [place] # Seg Neutrophils % Seg Neuts % (Manual) Lymphocytes % (Manual) Seg Neutrophils # Seg Neutrophils # Man Lymphocytes # (Manual) Monocytes # (Manual) POC ABG pH ABG pH POC ABG pCO2 POC ABG pO2 ABG pO2 ABG HCO3 ABG Base Excess ABG Hemoglobin Oxyhemoglobin Sodium Potassium Chloride Carbon Dioxide BUN 23 H Creatinine 0.5 L Glucose 129 H POC Glucose 127 H 130 H Calcium 8.0 L Phosphorus Magnesium Direct Bilirubin AST Alkaline Phosphatase C-Reactive Protein Serum Total Protein Total Protein Albumin Prealbumin Pymez-8-Lgahnskmf Rrvxp-1-Ghhdefmcu Gamma Globulins PEP Interpretation Triglycerides Urine pH Urine Creatinine Urine Total Protein Vancomycin Trough Digoxin Crossmatch 10/28/19 10/29/19 10/29/19 23:30 05:30 05:30 WBC 11.2 H RBC 3.36 L Hgb 9.7 L Hct 29.4 L MCHC RDW 16.7 H Plt Count Lymph % (Auto) [place] % (Auto) 16.0 H Lymph # [place] # 1.8 H Seg Neutrophils % 70.2 H Seg Neuts % (Manual) Lymphocytes % (Manual) Seg Neutrophils # 7.9 H Seg Neutrophils # Man Lymphocytes # (Manual) Monocytes # (Manual) POC ABG pH ABG pH POC ABG pCO2 POC ABG pO2 ABG pO2 ABG HCO3 ABG Base Excess ABG Hemoglobin Oxyhemoglobin Sodium Potassium Chloride Carbon Dioxide BUN 23 H Creatinine 0.5 L Glucose POC Glucose 130 H Calcium 8.3 L Phosphorus Magnesium Direct Bilirubin AST Alkaline Phosphatase C-Reactive Protein Serum Total Protein Total Protein Albumin Prealbumin Xofsw-2-Fdhbxgjqx Mmoct-4-Tvayurrxu Gamma Globulins PEP Interpretation Triglycerides Urine pH Urine Creatinine Urine Total Protein Vancomycin Trough Digoxin Crossmatch 10/29/19 10/29/19 10/29/19 05:52 13:10 18:02 WBC RBC Hgb Hct MCHC RDW Plt Count Lymph % (Auto) [place] % (Auto) Lymph # [place] # Seg Neutrophils % Seg Neuts % (Manual) Lymphocytes % (Manual) Seg Neutrophils # Seg Neutrophils # Man Lymphocytes # (Manual) Monocytes # (Manual) POC ABG pH ABG pH POC ABG pCO2 POC ABG pO2 ABG pO2 ABG HCO3 ABG Base Excess ABG Hemoglobin Oxyhemoglobin Sodium Potassium Chloride Carbon Dioxide BUN Creatinine Glucose POC Glucose 111 H 140 H 140 H Calcium Phosphorus Magnesium Direct Bilirubin AST Alkaline Phosphatase C-Reactive Protein Serum Total Protein Total Protein Albumin Prealbumin Kmlcv-1-Wadqovgmr Vskac-6-Fmayrxnal Gamma Globulins PEP Interpretation Triglycerides Urine pH Urine Creatinine Urine Total Protein Vancomycin Trough Digoxin Crossmatch 10/29/19 10/30/19 10/30/19 23:58 01:05 05:15 WBC RBC Hgb Hct MCHC RDW Plt Count Lymph % (Auto) [place] % (Auto) Lymph # [place] # Seg Neutrophils % Seg Neuts % (Manual) Lymphocytes % (Manual) Seg Neutrophils # Seg Neutrophils # Man Lymphocytes # (Manual) Monocytes # (Manual) POC ABG pH ABG pH POC ABG pCO2 62.0 H POC ABG pO2 168 H ABG pO2 ABG HCO3 ABG Base Excess ABG Hemoglobin Oxyhemoglobin Sodium 147 H Potassium Chloride 107.8 H Carbon Dioxide BUN 26 H Creatinine 0.5 L Glucose 139 H POC Glucose 161 H Calcium Phosphorus Magnesium 2.40 H Direct Bilirubin AST Alkaline Phosphatase C-Reactive Protein Serum Total Protein Total Protein Albumin Prealbumin Phhpl-7-Ufeqpjkrv Hgzxr-7-Cxtnojrgz Gamma Globulins PEP Interpretation Triglycerides Urine pH Urine Creatinine Urine Total Protein Vancomycin Trough Digoxin Crossmatch 10/30/19 10/30/19 10/30/19 05:15 06:32 09:44 WBC 13.8 H RBC 3.59 L Hgb 10.1 L Hct 32.4 L MCHC 31 L RDW 17.4 H Plt Count Lymph % (Auto) 11.2 L [place] % (Auto) 13.6 H Lymph # [place] # 1.9 H Seg Neutrophils % 75.1 H Seg Neuts % (Manual) Lymphocytes % (Manual) Seg Neutrophils # 10.4 H Seg Neutrophils # Man Lymphocytes # (Manual) Monocytes # (Manual) POC ABG pH ABG pH POC ABG pCO2 51.7 H POC ABG pO2 111 H ABG pO2 ABG HCO3 ABG Base Excess ABG Hemoglobin Oxyhemoglobin Sodium Potassium Chloride Carbon Dioxide BUN Creatinine Glucose POC Glucose 141 H Calcium Phosphorus Magnesium Direct Bilirubin AST Alkaline Phosphatase C-Reactive Protein Serum Total Protein Total Protein Albumin Prealbumin Wqlns-2-Bixtcdkvv Bgudo-4-Tciwypokf Gamma Globulins PEP Interpretation Triglycerides Urine pH Urine Creatinine Urine Total Protein Vancomycin Trough Digoxin Crossmatch 10/30/19 10/31/19 10/31/19 18:10 04:18 04:18 WBC 11.7 H RBC 3.11 L Hgb 9.0 L Hct 27.9 L MCHC RDW 17.1 H Plt Count Lymph % (Auto) [place] % (Auto) Lymph # [place] # Seg Neutrophils % Seg Neuts % (Manual) Lymphocytes % (Manual) Seg Neutrophils # Seg Neutrophils # Man Lymphocytes # (Manual) Monocytes # (Manual) POC ABG pH ABG pH POC ABG pCO2 POC ABG pO2 ABG pO2 ABG HCO3 ABG Base Excess ABG Hemoglobin Oxyhemoglobin Sodium 148 H Potassium Chloride 108.7 H Carbon Dioxide BUN 37 H Creatinine 0.7 L Glucose 102 H POC Glucose 131 H Calcium Phosphorus Magnesium Direct Bilirubin AST Alkaline Phosphatase C-Reactive Protein Serum Total Protein Total Protein Albumin Prealbumin Tixpp-2-Tkxzssmxx Rccky-6-Ygewuhnla Gamma Globulins PEP Interpretation Triglycerides Urine pH Urine Creatinine Urine Total Protein Vancomycin Trough Digoxin Crossmatch 10/31/19 10/31/19 10/31/19 11:32 12:55 18:10 WBC RBC Hgb Hct MCHC RDW Plt Count Lymph % (Auto) [place] % (Auto) Lymph # [place] # Seg Neutrophils % Seg Neuts % (Manual) Lymphocytes % (Manual) Seg Neutrophils # Seg Neutrophils # Man Lymphocytes # (Manual) Monocytes # (Manual) POC ABG pH ABG pH POC ABG pCO2 57.9 H POC ABG pO2 135 H ABG pO2 ABG HCO3 ABG Base Excess ABG Hemoglobin Oxyhemoglobin Sodium Potassium Chloride Carbon Dioxide BUN Creatinine Glucose POC Glucose 120 H Calcium Phosphorus Magnesium Direct Bilirubin AST Alkaline Phosphatase C-Reactive Protein Serum Total Protein Total Protein Albumin Prealbumin Kcljf-7-Mvfmcejri Iwywx-0-Mpxqyihfn Gamma Globulins PEP Interpretation Triglycerides Urine pH Urine Creatinine Urine Total Protein Vancomycin Trough 41.7 H Digoxin Crossmatch 10/31/19 11/01/19 11/01/19 23:08 05:30 05:30 WBC 14.6 H RBC 3.13 L Hgb 8.9 L Hct 27.7 L MCHC RDW 17.0 H Plt Count Lymph % (Auto) [place] % (Auto) Lymph # [place] # Seg Neutrophils % Seg Neuts % (Manual) Lymphocytes % (Manual) Seg Neutrophils # Seg Neutrophils # Man Lymphocytes # (Manual) Monocytes # (Manual) POC ABG pH ABG pH POC ABG pCO2 POC ABG pO2 ABG pO2 ABG HCO3 ABG Base Excess ABG Hemoglobin Oxyhemoglobin Sodium 149 H Potassium Chloride 109.0 H Carbon Dioxide BUN 26 H Creatinine 0.7 L Glucose 129 H POC Glucose 109 H Calcium Phosphorus Magnesium Direct Bilirubin AST Alkaline Phosphatase C-Reactive Protein Serum Total Protein Total Protein Albumin Prealbumin Zzuyq-9-Ucjutkosr Tfstv-3-Iptmmafvh Gamma Globulins PEP Interpretation Triglycerides Urine pH Urine Creatinine Urine Total Protein Vancomycin Trough Digoxin Crossmatch 11/01/19 11/01/19 11/01/19 06:09 06:10 11:52 WBC RBC Hgb Hct MCHC RDW Plt Count Lymph % (Auto) [place] % (Auto) Lymph # [place] # Seg Neutrophils % Seg Neuts % (Manual) Lymphocytes % (Manual) Seg Neutrophils # Seg Neutrophils # Man Lymphocytes # (Manual) Monocytes # (Manual) POC ABG pH ABG pH POC ABG pCO2 51.3 H POC ABG pO2 71 L ABG pO2 ABG HCO3 ABG Base Excess ABG Hemoglobin Oxyhemoglobin Sodium Potassium Chloride Carbon Dioxide BUN Creatinine Glucose POC Glucose 113 H 106 H Calcium Phosphorus Magnesium Direct Bilirubin AST Alkaline Phosphatase C-Reactive Protein Serum Total Protein Total Protein Albumin Prealbumin Cupdh-7-Ojdpyegva Kbbcp-9-Ulrxmzawf Gamma Globulins PEP Interpretation Triglycerides Urine pH Urine Creatinine Urine Total Protein Vancomycin Trough Digoxin Crossmatch 11/01/19 11/02/19 11/02/19 18:18 03:40 03:40 WBC RBC 2.36 L Hgb 7.2 L Hct 20.8 L D MCHC 35 H RDW 16.8 H Plt Count Lymph % (Auto) [place] % (Auto) Lymph # [place] # Seg Neutrophils % Seg Neuts % (Manual) Lymphocytes % (Manual) Seg Neutrophils # Seg Neutrophils # Man Lymphocytes # (Manual) Monocytes # (Manual) POC ABG pH ABG pH POC ABG pCO2 POC ABG pO2 ABG pO2 ABG HCO3 ABG Base Excess ABG Hemoglobin Oxyhemoglobin Sodium 157 H D Potassium 3.0 L D Chloride 117.2 H Carbon Dioxide BUN 23 H Creatinine 0.6 L Glucose 101 H POC Glucose 120 H Calcium 6.4 L D Phosphorus Magnesium Direct Bilirubin AST Alkaline Phosphatase C-Reactive Protein Serum Total Protein Total Protein Albumin Prealbumin Kdbjj-5-Kwtrfybpo Azazs-7-Rblmapfph Gamma Globulins PEP Interpretation Triglycerides Urine pH Urine Creatinine Urine Total Protein Vancomycin Trough Digoxin Crossmatch 11/02/19 11/02/19 11/02/19 04:48 05:30 12:43 WBC RBC Hgb Hct MCHC RDW Plt Count Lymph % (Auto) [place] % (Auto) Lymph # [place] # Seg Neutrophils % Seg Neuts % (Manual) Lymphocytes % (Manual) Seg Neutrophils # Seg Neutrophils # Man Lymphocytes # (Manual) Monocytes # (Manual) POC ABG pH ABG pH POC ABG pCO2 50.1 H POC ABG pO2 74 L ABG pO2 ABG HCO3 ABG Base Excess ABG Hemoglobin Oxyhemoglobin Sodium 149 H D Potassium Chloride 110.0 H Carbon Dioxide BUN 23 H Creatinine 0.6 L Glucose POC Glucose 109 H Calcium 8.1 L D Phosphorus Magnesium 2.40 H Direct Bilirubin AST Alkaline Phosphatase C-Reactive Protein Serum Total Protein Total Protein Albumin Prealbumin Sihek-5-Doclqfgiv Vunei-6-Uobxgojca Gamma Globulins PEP Interpretation Triglycerides Urine pH Urine Creatinine Urine Total Protein Vancomycin Trough Digoxin Crossmatch 11/03/19 11/03/19 11/03/19 03:42 03:42 04:13 WBC RBC 2.93 L Hgb 8.5 L Hct 25.8 L MCHC RDW 16.9 H Plt Count Lymph % (Auto) [place] % (Auto) Lymph # [place] # Seg Neutrophils % Seg Neuts % (Manual) Lymphocytes % (Manual) Seg Neutrophils # Seg Neutrophils # Man Lymphocytes # (Manual) Monocytes # (Manual) POC ABG pH 7.540 H ABG pH POC ABG pCO2 POC ABG pO2 51 L ABG pO2 ABG HCO3 ABG Base Excess ABG Hemoglobin Oxyhemoglobin Sodium 147 H Potassium 3.5 L D Chloride 108.6 H Carbon Dioxide BUN Creatinine 0.6 L Glucose 109 H POC Glucose Calcium 8.3 L Phosphorus Magnesium Direct Bilirubin AST Alkaline Phosphatase C-Reactive Protein Serum Total Protein Total Protein Albumin Prealbumin Thxer-5-Itlwjefig Ijjyi-1-Eoibozjck Gamma Globulins PEP Interpretation Triglycerides Urine pH Urine Creatinine Urine Total Protein Vancomycin Trough Digoxin Crossmatch 11/03/19 11/03/19 11/03/19 04:28 12:04 23:02 WBC RBC Hgb Hct MCHC RDW Plt Count Lymph % (Auto) [place] % (Auto) Lymph # Cooper # Seg Neutrophils % Seg Neuts % (Manual) Lymphocytes % (Manual) Seg Neutrophils # Seg Neutrophils # Man Lymphocytes # (Manual) Monocytes # (Manual) POC ABG pH ABG pH POC ABG pCO2 45.4 H POC ABG pO2 ABG pO2 ABG HCO3 ABG Base Excess ABG Hemoglobin Oxyhemoglobin Sodium Potassium Chloride Carbon Dioxide BUN Creatinine Glucose POC Glucose 109 H 111 H Calcium Phosphorus Magnesium Direct Bilirubin AST Alkaline Phosphatase C-Reactive Protein Serum Total Protein Total Protein Albumin Prealbumin Tsunm-0-Lsynkpird Qbgwd-4-Lcqgluxdr Gamma Globulins PEP Interpretation Triglycerides Urine pH Urine Creatinine Urine Total Protein Vancomycin Trough Digoxin Crossmatch 11/04/19 11/04/19 11/04/19 05:00 05:00 05:19 WBC RBC 2.96 L Hgb 8.6 L Hct 25.5 L MCHC RDW 16.7 H Plt Count Lymph % (Auto) [place] % (Auto) Lymph # [place] # Seg Neutrophils % Seg Neuts % (Manual) Lymphocytes % (Manual) Seg Neutrophils # Seg Neutrophils # Man Lymphocytes # (Manual) Monocytes # (Manual) POC ABG pH ABG pH POC ABG pCO2 POC ABG pO2 ABG pO2 ABG HCO3 ABG Base Excess ABG Hemoglobin Oxyhemoglobin Sodium Potassium 3.5 L Chloride Carbon Dioxide BUN Creatinine 0.5 L Glucose 111 H POC Glucose 106 H Calcium 8.1 L Phosphorus Magnesium Direct Bilirubin AST Alkaline Phosphatase C-Reactive Protein Serum Total Protein Total Protein Albumin Prealbumin Regta-6-Mxrnswewc Getci-2-Epxcglwke Gamma Globulins PEP Interpretation Triglycerides Urine pH Urine Creatinine Urine Total Protein Vancomycin Trough Digoxin Crossmatch 11/04/19 11/05/19 11/05/19 12:40 00:28 04:19 WBC 12.4 H RBC 2.98 L Hgb 8.5 L Hct 25.5 L MCHC RDW 16.6 H Plt Count Lymph % (Auto) [place] % (Auto) Lymph # [place] # Seg Neutrophils % Seg Neuts % (Manual) Lymphocytes % (Manual) Seg Neutrophils # Seg Neutrophils # Man Lymphocytes # (Manual) Monocytes # (Manual) POC ABG pH ABG pH POC ABG pCO2 POC ABG pO2 ABG pO2 ABG HCO3 ABG Base Excess ABG Hemoglobin Oxyhemoglobin Sodium Potassium Chloride Carbon Dioxide BUN Creatinine Glucose POC Glucose 109 H 132 H Calcium Phosphorus Magnesium Direct Bilirubin AST Alkaline Phosphatase C-Reactive Protein Serum Total Protein Total Protein Albumin Prealbumin Hswtx-2-Agntqwxmu Qnuvs-7-Fbhrlqdmw Gamma Globulins PEP Interpretation Triglycerides Urine pH Urine Creatinine Urine Total Protein Vancomycin Trough Digoxin Crossmatch 11/05/19 11/05/19 11/05/19 04:19 05:40 13:14 WBC RBC Hgb Hct MCHC RDW Plt Count Lymph % (Auto) [place] % (Auto) Lymph # [place] # Seg Neutrophils % Seg Neuts % (Manual) Lymphocytes % (Manual) Seg Neutrophils # Seg Neutrophils # Man Lymphocytes # (Manual) Monocytes # (Manual) POC ABG pH ABG pH POC ABG pCO2 POC ABG pO2 ABG pO2 ABG HCO3 ABG Base Excess ABG Hemoglobin Oxyhemoglobin Sodium Potassium 3.4 L Chloride Carbon Dioxide BUN Creatinine 0.4 L Glucose 106 H POC Glucose 136 H 145 H Calcium 8.2 L Phosphorus Magnesium Direct Bilirubin AST Alkaline Phosphatase C-Reactive Protein Serum Total Protein Total Protein Albumin Prealbumin Ovyon-8-Cprltjppo Wguhx-0-Fsrnyxygq Gamma Globulins PEP Interpretation Triglycerides Urine pH Urine Creatinine Urine Total Protein Vancomycin Trough Digoxin Crossmatch 11/05/19 11/05/19 11/06/19 18:29 23:42 05:00 WBC 12.2 H RBC 2.89 L Hgb 8.2 L Hct 24.9 L MCHC RDW 16.4 H Plt Count Lymph % (Auto) [place] % (Auto) Lymph # [place] # Seg Neutrophils % Seg Neuts % (Manual) Lymphocytes % (Manual) Seg Neutrophils # Seg Neutrophils # Man Lymphocytes # (Manual) Monocytes # (Manual) POC ABG pH ABG pH POC ABG pCO2 POC ABG pO2 ABG pO2 ABG HCO3 ABG Base Excess ABG Hemoglobin Oxyhemoglobin Sodium Potassium Chloride Carbon Dioxide BUN Creatinine Glucose POC Glucose 138 H 117 H Calcium Phosphorus Magnesium Direct Bilirubin AST Alkaline Phosphatase C-Reactive Protein Serum Total Protein Total Protein Albumin Prealbumin Vvghc-8-Kjxochwco Gutyc-7-Axfujvffp Gamma Globulins PEP Interpretation Triglycerides Urine pH Urine Creatinine Urine Total Protein Vancomycin Trough Digoxin Crossmatch 11/06/19 11/06/19 05:00 05:22 WBC RBC Hgb Hct MCHC RDW Plt Count Lymph % (Auto) [place] % (Auto) Lymph # [place] # Seg Neutrophils % Seg Neuts % (Manual) Lymphocytes % (Manual) Seg Neutrophils # Seg Neutrophils # Man Lymphocytes # (Manual) Monocytes # (Manual) POC ABG pH ABG pH POC ABG pCO2 POC ABG pO2 ABG pO2 ABG HCO3 ABG Base Excess ABG Hemoglobin Oxyhemoglobin Sodium Potassium Chloride Carbon Dioxide BUN Creatinine 0.4 L Glucose 114 H POC Glucose 121 H Calcium 8.2 L Phosphorus Magnesium Direct Bilirubin AST Alkaline Phosphatase C-Reactive Protein Serum Total Protein Total Protein Albumin Prealbumin Wbmzn-0-Mddmglxwu Vgnhe-8-Mlpkcijto Gamma Globulins PEP Interpretation Triglycerides Urine pH Urine Creatinine Urine Total Protein Vancomycin Trough Digoxin Crossmatch
[2019-11-06] MEDS: ARFORMOTEROL 15 MCG/2 ML NEBU IH SCH ×2 (13:32→20:51)
--- NOTE | 2019-11-06 14:14 | Progress Note ---
Assessment and Plan Assessment and plan: Sepsis, recurrent. Etiology likely secondary to fluid collection/abscess in the abdomen and anastomotic leak. Given recent prolonged exposure to abx and TPN, at risk of MDR infections, ID started empiric Meropenem and Micafungin Dehiscence of closure of fascia * Went to OR for ex lap with closure of abdominal wall and wound vac placement (10/05) * Continued to decline with possible Air vs fluid, 10/10/19 IR went in and placed two drains, Noted to have possible fecal material * Returned to the OR 10/13/19 due to concern for intra-abdominal infection and was found to have with heavy contamination of abdomen patent had disruption of bowel anastomosis, abdominal washout, abthera placement and colon stapled transection and left bowel enterotomy from anastomosis completely open * Returned to OR on 10/16/19 for abdominal washout, Partial Omentectomy, Partial Colectomy, Colostomy Creation and AbThera Placement * Abdominal washout and closure - 10/22 * cont wound care Acute Respiratory failure with hypoxia -Extubated 10/25/19 - Re-intubated 10/30 -Patient self extubated morning of 11/04, now on Oxygen by [place] -Assembler Type Bar And Segment following Sepsis On Merrem, Mifungin ID Physician following right sump drain fell out Surgeon following Left pneumothorax s/p chest tube placed 10/30 Left lower lobe pneumonia -CTA chest showed left lower lobe consolidation with pleural effusion GUILLERMO on CKD -due to ATN due to sepsis -Improving, will monitor -SPEP and UPEP pending -No hydronephrosis on CT -[place] in place, monitor I/O's Severe Metabolic acidosis -Improved Acute Toxic Metabolic Encephalopathy/Delirium Tremens -Started on CIWA protocol due to hx of ETOH abuse, 6packs a day -Head CT scan negative for acute findings Acute blood loss anemia -H/H stable -Continue to monitor H&H and transfuse for hb<7 SVT, Atrial fib/flutter with RVR -treated with adenosine x1 -off amiodarone and cardizem drip. On oral amiodarone and IV Lopressor. -HR currently controlled -Cardiology following Hypotension -Off esmolol drip -s/p IV fluid boluses, BP stable Hypophosphatemia -will monitor level Hypernatremia start D5W Hypokalemia Replace iv Hx of Hypertension -Stable Hyperlipidemia -stable Atypical chest pain -probably secondary to pneumonitis -troponin levels neg Hx of [place]/CAD -s/p PCI of the circumflex and second vessel POBA of the distal LAD occlusion. Left ventricle fraction of 45-50%. Morbid obesity with BMI of 43.4 -Lifestyle modification recommended COPD -Stable -cont neb tx Moderate Protein calorie malnutrition secondary to surgery -On TPN -Nutrition following Tobacco abuse -Cessation recommended Morbid obesity with BMI of 43.4 -Lifestyle modification recommended DVT and GI ppx: Lovenox/PPI Disp: Prognosis guarded The high probability of a clinically significant, sudden or life threatening deterioration of the [respiratory] system(s) required my full and direct attention, intervention and personal management. The aggregate critical care time was [33] minutes. This time is in addition to time spent performing reported procedures but includes the following: [x] Data Review and interpretation [x] Patient assessment and monitoring of vital signs [x] Documentation [x] Medication orders and management History Interval history: Patient self extubated. Hospitalist Physical - Constitutional Vitals: Temp Pulse Resp BP Pulse Ox 98.6 F 84 25 H 135/70 92 11/06/19 12:00 11/06/19 13:54 11/06/19 13:31 11/06/19 13:54 11/06/19 13:30 General appearance: Present: no acute distress, obese - EENT Eyes: Present: PERRL, EOM intact ENT: hearing intact, clear oral mucosa, dentition normal - Neck Neck: Present: supple, normal ROM - Respiratory Respiratory effort: normal Respiratory: bilateral: CTA - Cardiovascular Rhythm: regular Heart Sounds: Present: S1 & S2. Absent: gallop, rub - Extremities Extremities: no ischemia, No edema, Full ROM - Abdominal General gastrointestinal: soft, non-tender, non-distended, normal bowel sounds - Integumentary Integumentary: Present: clear, warm, dry - Neurologic Neurologic: CNII-XII intact, moves all extremities Results - Labs CBC & Chem 7: 11/06/19 05:00 11/06/19 05:00 Labs: Laboratory Last Values WBC 12.2 K/mm3 (4.5-11.0) H 11/06/19 05:00 RBC 2.89 M/mm3 (3.65-5.03) L 11/06/19 05:00 Hgb 8.2 gm/dl (11.8-15.2) L 11/06/19 05:00 Hct 24.9 % (35.5-45.6) L 11/06/19 05:00 MCV 86 fl (84-94) 11/06/19 05:00 MCH 28 pg (28-32) 11/06/19 05:00 MCHC 33 % (32-34) 11/06/19 05:00 RDW 16.4 % (13.2-15.2) H 11/06/19 05:00 Plt Count 321 K/mm3 (140-440) 11/06/19 05:00 Lymph % (Auto) 11.2 % (13.4-35.0) L 10/30/19 05:15 [place] % (Auto) 13.6 % (0.0-7.3) H 10/30/19 05:15 Eos % (Auto) 0.0 % (0.0-4.3) 10/30/19 05:15 Baso % (Auto) 0.1 % (0.0-1.8) 10/30/19 05:15 Lymph # 1.5 K/mm3 (1.2-5.4) 10/30/19 05:15 [place] # 1.9 K/mm3 (0.0-0.8) H 10/30/19 05:15 Eos # 0.0 K/mm3 (0.0-0.4) 10/30/19 05:15 Baso # 0.0 K/mm3 (0.0-0.1) 10/30/19 05:15 Add Manual Diff Complete 10/16/19 09:20 Total Counted 100 10/16/19 09:20 Seg Neutrophils % 75.1 % (40.0-70.0) H 10/30/19 05:15 Seg Neuts % (Manual) 79.0 % (40.0-70.0) H 10/16/19 09:20 Band Neutrophils % 12.0 % 10/16/19 09:20 Lymphocytes % (Manual) 4.0 % (13.4-35.0) L 10/16/19 09:20 Reactive Lymphs % (Man) 0 % 10/16/19 09:20 Monocytes % (Manual) 2.0 % (0.0-7.3) 10/16/19 09:20 Eosinophils % (Manual) 0 % (0.0-4.3) 10/16/19 09:20 Basophils % (Manual) 0 % (0.0-1.8) 10/16/19 09:20 Metamyelocytes % 2.0 % 10/16/19 09:20 Myelocytes % 1.0 % 10/16/19 09:20 Promyelocytes % 0 % 10/16/19 09:20 Blast Cells % 0 % 10/16/19 09:20 Nucleated RBC % Not Reportable 10/16/19 09:20 Seg Neutrophils # 10.4 K/mm3 (1.8-7.7) H 10/30/19 05:15 Seg Neutrophils # Man 11.5 K/mm3 (1.8-7.7) H 10/16/19 09:20 Band Neutrophils # 1.8 K/mm3 10/16/19 09:20 Lymphocytes # (Manual) 0.6 K/mm3 (1.2-5.4) L 10/16/19 09:20 Abs React Lymphs (Man) 0.0 K/mm3 10/16/19 09:20 Monocytes # (Manual) 0.3 K/mm3 (0.0-0.8) 10/16/19 09:20 Eosinophils # (Manual) 0.0 K/mm3 (0.0-0.4) 10/16/19 09:20 Basophils # (Manual) 0.0 K/mm3 (0.0-0.1) 10/16/19 09:20 Metamyelocytes # 0.3 K/mm3 10/16/19 09:20 Myelocytes # 0.1 K/mm3 10/16/19 09:20 Promyelocytes # 0.0 K/mm3 10/16/19 09:20 Blast Cells # 0.0 K/mm3 10/16/19 09:20 WBC Morphology Not Reportable 10/16/19 09:20 Hypersegmented Neuts Not Reportable 10/16/19 09:20 Hyposegmented Neuts Not Reportable 10/16/19 09:20 Hypogranular Neuts Not Reportable 10/16/19 09:20 Smudge Cells Not Reportable 10/16/19 09:20 Toxic Granulation Not Reportable 10/16/19 09:20 Toxic Vacuolation Not Reportable 10/16/19 09:20 Dohle Bodies Not Reportable 10/16/19 09:20 Pelger-Huet Anomaly Not Reportable 10/16/19 09:20 Andrse Rods Not Reportable 10/16/19 09:20 Platelet Estimate Consistent w auto 10/16/19 09:20 Clumped Platelets Not Reportable 10/16/19 09:20 Plt Clumps, EDTA Not Reportable 10/16/19 09:20 Large Platelets Not Reportable 10/16/19 09:20 Giant Platelets Not Reportable 10/16/19 09:20 Platelet Satelliting Not Reportable 10/16/19 09:20 Plt Morphology Comment Not Reportable 10/16/19 09:20 RBC Morphology Not Reportable 10/16/19 09:20 Dimorphic RBCs Not Reportable 10/16/19 09:20 Polychromasia Few 10/16/19 09:20 Hypochromasia Few 10/16/19 09:20 Poikilocytosis Not Reportable 10/16/19 09:20 Anisocytosis Not Reportable 10/16/19 09:20 Microcytosis Not Reportable 10/16/19 09:20 Macrocytosis Not Reportable 10/16/19 09:20 Spherocytes Not Reportable 10/16/19 09:20 Pappenheimer Bodies Not Reportable 10/16/19 09:20 Sickle Cells Not Reportable 10/16/19 09:20 Target Cells Few 10/16/19 09:20 Tear Drop Cells Not Reportable 10/16/19 09:20 Ovalocytes Not Reportable 10/16/19 09:20 Helmet Cells Not Reportable 10/16/19 09:20 [place] Bodies Not Reportable 10/16/19 09:20 [place] Rings Not Reportable 10/16/19 09:20 Bishnu Cells Not Reportable 10/16/19 09:20 Bite Cells Not Reportable 10/16/19 09:20 Crenated Cell Not Reportable 10/16/19 09:20 Elliptocytes Not Reportable 10/16/19 09:20 Acanthocytes (Spur) Not Reportable 10/16/19 09:20 Rouleaux Not Reportable 10/16/19 09:20 Hemoglobin C Crystals Not Reportable 10/16/19 09:20 Schistocytes Not Reportable 10/16/19 09:20 Malaria parasites Not Reportable 10/16/19 09:20 Toni Bodies Not Reportable 10/16/19 09:20 Hem Pathologist Commnt No 10/16/19 09:20 POC ABG pH 7.422 (7.35-7.45) 11/03/19 04:28 ABG pH 7.390 pH Units (7.350-7.450) 10/23/19 04:47 POC ABG pCO2 45.4 (35-45) H 11/03/19 04:28 ABG pCO2 48.4 mm Hg 10/23/19 04:47 POC ABG pO2 83 (80-105) 11/03/19 04:28 ABG pO2 68.9 mm Hg (80.0-90.0) L 10/23/19 04:47 POC ABG HCO3 29.6 (22-26 mml/L) 11/03/19 04:28 ABG HCO3 28.7 mmol/L (20.0-26.0) H 10/23/19 04:47 POC ABG Total CO2 31 (23-27mmol/L) 11/03/19 04:28 POC ABG O2 Sat 96 11/03/19 04:28 ABG O2 Saturation 96.6 % (95.0-99.0) 10/23/19 04:47 ABG O2 Content 8.8 (0.0-44) 10/23/19 04:47 POC ABG Base Excess 5 ((-2) - (+3)mmol/L) 11/03/19 04:28 ABG Base Excess 3.4 mmol/L (-2.0-3.0) H 10/23/19 04:47 ABG Hemoglobin 6.6 gm/dl (14.0-18.0) L 10/23/19 04:47 ABG Carboxyhemoglobin 2.1 % (0.0-5.0) 10/23/19 04:47 ABG Methemoglobin 0.5 % (0.0-1.5) 10/23/19 04:47 Oxyhemoglobin 94.1 % (95.0-99.0) L 10/23/19 04:47 FiO2 40 % 11/03/19 04:28 Sodium 140 mmol/L (137-145) 11/06/19 05:00 Potassium 3.7 mmol/L (3.6-5.0) 11/06/19 05:00 Chloride 100.5 mmol/L (98-107) 11/06/19 05:00 Carbon Dioxide 26 mmol/L (22-30) 11/06/19 05:00 Anion Gap 17 mmol/L 11/06/19 05:00 BUN 11 mg/dL (9-20) 11/06/19 05:00 Creatinine 0.4 mg/dL (0.8-1.5) L 11/06/19 05:00 Estimated GFR > 60 ml/min 11/06/19 05:00 BUN/Creatinine Ratio 28 % 11/06/19 05:00 Glucose 114 mg/dL (75-100) H 11/06/19 05:00 POC Glucose 102 (70-105) 11/06/19 11:24 Hemoglobin A1c 5.7 % (4-6) 10/06/19 05:36 Lactic Acid 1.10 mmol/L (0.7-2.0) 10/13/19 04:20 Calcium 8.2 mg/dL (8.4-10.2) L 11/06/19 05:00 Ionized Calcium 5.2 mg/dL (4.8-5.6) 10/18/19 07:41 Phosphorus 2.70 mg/dL (2.5-4.5) 11/02/19 12:43 Magnesium 2.40 mg/dL (1.7-2.3) H 11/02/19 12:43 Total Bilirubin 1.10 mg/dL (0.1-1.2) 10/26/19 06:15 Direct Bilirubin 0.7 mg/dL (0-0.2) H 10/23/19 10:44 Indirect Bilirubin 0.1 mg/dL 10/23/19 10:44 AST 23 units/L (5-40) 10/26/19 06:15 ALT 13 units/L (7-56) 10/26/19 06:15 Alkaline Phosphatase 148 units/L (35-129) H 10/26/19 06:15 Ammonia 49.0 umol/L (25-60) 10/13/19 04:20 Troponin T < 0.010 ng/mL (0.00-0.029) 10/09/19 17:23 C-Reactive Protein 30.60 mg/dL (0.00-1.30) H 10/15/19 04:32 Serum Total Protein 5.2 g/dL (6.1-8.1) L 10/11/19 09:00 Total Protein 5.9 g/dL (6.3-8.2) L 10/26/19 06:15 Albumin 2.4 g/dL (3.9-5) L 10/26/19 06:15 Albumin/Globulin Ratio 0.7 % 10/26/19 06:15 Prealbumin 0.030 g/L (0.200-0.400) L 10/15/19 04:32 Njdjp-3-Cfndqpxjd See scanned result 10/11/19 Unknown Kxdwu-5-Reazfsskz See scanned result 10/11/19 Unknown Beta Globulins See scanned result 10/11/19 Unknown Gamma Globulins See scanned result 10/11/19 Unknown Abnorm Protein Band 1 see below 10/11/19 09:00 PEP Interpretation See scanned result 10/11/19 Unknown Triglycerides 185 mg/dL (2-149) H 10/26/19 06:15 Urine Color Yellow (Yellow) 10/26/19 Unknown Urine Turbidity Clear (Clear) 10/26/19 Unknown Urine pH 9.0 (5.0-7.0) H 10/26/19 Unknown Ur Specific [place] 1.011 (1.003-1.030) 10/26/19 Unknown Urine Protein 30 mg/dl mg/dL (Negative) 10/26/19 Unknown Urine Glucose (UA) Neg mg/dL (Negative) 10/26/19 Unknown Urine Ketones Neg mg/dL (Negative) 10/26/19 Unknown Urine Blood Neg (Negative) 10/26/19 Unknown Urine Nitrite Neg (Negative) 10/26/19 Unknown Urine Bilirubin Neg (Negative) 10/26/19 Unknown Urine Urobilinogen < 2.0 mg/dL (<2.0) 10/26/19 Unknown Ur Leukocyte Esterase Neg (Negative) 10/26/19 Unknown Urine WBC (Auto) 1.0 /HPF (0.0-6.0) 10/26/19 Unknown Urine RBC (Auto) 1.0 /HPF (0.0-6.0) 10/26/19 Unknown Urine Bacteria (Auto) 1+ /HPF (Negative) 10/11/19 06:23 Urine Mucus Few /HPF 10/26/19 Unknown Urine Eosinophils None seen (None Seen) 10/11/19 06:23 Ur Random Creatinine See scanned result 10/11/19 Unknown U Random Total Protein See scanned result 10/11/19 Unknown Urine Creatinine 116.8 mg/dL (0.1-20.0) H 10/11/19 06:23 Urine Creatinine 118.2 mg/dL (0.1-20.0) H 10/11/19 06:23 Protein/Creatinin Ratio See scanned result 10/11/19 Unknown Urine Sodium 14 mmol/L 10/11/19 06:23 Urine Total Protein 104 mg/dL (5-11.8) H 10/11/19 06:23 Urine Total Protein 105 mg/dL (5-11.8) H 10/11/19 06:23 U Abnormal Prot Band 1 See scanned result 10/11/19 Unknown U Abnormal Prot Band 2 See scanned result 10/11/19 Unknown U Abnormal Prot Band 3 See scanned result 10/11/19 Unknown Vancomycin Trough 5.7 ug/mL (5.0-20.0) 11/05/19 09:00 Random Vancomycin 9.6 ug/mL (0-40.0) 11/03/19 03:42 Digoxin 0.7 ng/mL (0.9-2.0) L 10/19/19 04:21 Blood Type A POSITIVE 10/23/19 11:50 Antibody Screen Negative 10/23/19 11:50 Crossmatch See Detail 10/23/19 11:50 Active Medications - Current Medications Current Medications: Generic Name Dose Route Start Last Admin Trade Name Freq PRN Reason Stop Dose Admin Acetaminophen 650 mg 10/25/19 13:00 11/03/19 16:03 Tylenol FEEDTUBE 650 mg Q4H PRN Administration Fever >100.5 Albuterol/Ipratropium 1 ampul 10/06/19 02:00 11/06/19 13:32 Duoneb *Not For Prn Use* IH 1 ampul Q6HRT VERÓNICA Administration Amiodarone HCl 200 mg 10/23/19 13:00 11/06/19 09:03 Cordarone PO 200 mg QDAY VERÓNICA Administration Lipase/Protease/Amylase 1 each 10/20/19 10:37 Pancreaze 10,500 Unit FEEDTUBE PRN PRN For Clogged Feeding Tube Arformoterol Tartrate 15 mcg 10/06/19 08:30 11/06/19 13:32 Brovana Nebu IH Not Given Q12HRT [facility] Budesonide 0.5 mg 10/07/19 12:20 11/06/19 07:31 Pulmicort IH 0.5 mg Q12HRT VERÓNICA Administration Citalopram Hydrobromide 20 mg 10/27/19 12:00 11/06/19 09:03 Celexa PO 20 mg DAILY VERÓNICA Administration Enoxaparin Sodium 40 mg 11/05/19 22:00 11/05/19 23:17 Enoxaparin SUB-Q 40 mg QDAY@2200 [facility] Administration Fentanyl 50 mcg 10/25/19 12:35 11/02/19 11:55 Sublimaze IV 50 mcg Q2H PRN Administration PAIN SCORE </=5 Haloperidol Lactate 5 mg 10/25/19 18:22 11/03/19 21:22 Haldol IV 5 mg Q6H PRN Administration Agitation Hydralazine HCl 10 mg 10/28/19 14:09 11/02/19 15:34 Apresoline IV 10 mg Q4HR PRN Administration Hypertension Hydromorphone HCl 2 mg 10/25/19 12:35 11/06/19 14:01 Dilaudid IV 2 mg Q4H PRN Administration PAIN SCORE >/=6 MEROPENEM/NS 1 GRAM/100 ML 1 gram in 100 mls @ 100 mls/hr 10/26/19 18:30 11/06/19 13:56 Merrem/Ns 1 Gram/100 Ml IV 100 mls/hr Q8H [facility] Administration Protocol Micafungin Sodium 100 mg/ 100 mls @ 100 mls/hr 10/26/19 18:30 11/06/19 10:35 Sodium Chloride IV 100 mls/hr QDAY [facility] Administration Protocol Insulin Human Lispro 0 unit 10/14/19 12:00 11/06/19 12:00 Humalog SUB-Q Not Given Q6HR [facility] Protocol Lisinopril 20 mg 10/30/19 10:00 11/06/19 09:03 Zestril PO 20 mg QDAY [facility] Administration Metoprolol Tartrate 2.5 mg 10/15/19 15:34 11/01/19 18:00 Metoprolol IV 2.5 mg Q4HR PRN Administration HR >130 Metoprolol Tartrate 50 mg 10/25/19 14:00 11/06/19 13:54 Metoprolol PO 50 mg Q8HR VERÓNICA Administration Multi-Ingred Cream/Lotion/Oil/Oint 1 applic 10/14/19 02:19 Artificial Tears Ophth Oint OU Q4HR PRN Dry Eye(s) Pantoprazole Sodium 40 mg 10/15/19 10:00 11/06/19 09:03 Protonix IV 40 mg QDAY VERÓNICA Administration Simple Syrup 15 ml 10/20/19 10:37 Simple Syrup FEEDTUBE PRN PRN Hypoglycemia Simple Syrup 30 ml 10/20/19 10:37 Simple Syrup FEEDTUBE PRN PRN Hypoglycemia Sodium Bicarbonate 325 mg 10/20/19 10:37 Sodium Bicarbonate FEEDTUBE PRN PRN For Clogged Feeding Tube Nutrition/Malnutrition Assess - Dietary Evaluation Nutrition/Malnutrition Findings: Nutrition Notes Start: 10/08/19 11:36 Freq: Status: Active Protocol: Document 11/05/19 11:30 LM (Rec: 11/05/19 11:39 LM [id number]) Nutrition Notes Initial or Follow up Reassessment Other Pertinent Diagnosis intra-abdominal infection, disruption of bowel anastomosis, LE edema Current Diet Osmolite 1.5 at 60 ml/hr Labs/Tests K 3.4 Cr 0.4 BG 106 HgbA1C 5.7 Pertinent Medications Reviewed Height 6 ft Weight 145 kg [place] Body Weight (kg) 80.90 BMI 43.3 Weight Status Morbidly Obese Subjective/Other Information Osmolite running at 60 ml/hr. Pt tolerating new TF. Percent of energy/protein needs met: 100%/66% Burn Absent Trauma Absent GI Symptoms None Current % PO Negligible Minimum of two criteria No physical signs of malnutrition Fluid Accumulation Mild (non-severe) #2 Nutrition Diagnosis Inadequate oral intake Diagnosis Progress(for reassessment Continues documentation) #1 Nutrition Diagnosis Increased nutrient needs ( specify in comment below) Diagnosis Progress(for reassessment Continues documentation) Is patient on ventilator? No Is Patient Ambulatory and/or Out of Bed No REE-([facility]-confined to bed) 2785.236 Kcal/Kg value to use for calculation 14 Approximate Energy Requirements Using 2030 kcal/Kg Calculation Used for Recommendations Kcal/kg Additional Notes Protein: 136-169g (1.2-1.5g/kg ) AdjBW 113kg Fluid 1 ml/kcal or per MD Nutrition Intervention Change Diet Order: Continue TF Nutrition Support: Osmolite 1.5 at 60 ml/hr Flush 170 ml q4hr Kcal 2,160 Protein (gm) 90 Fluid (mL) 1,097 Goal #1 Meet at least 80% of kcal/ protein needs via TF Goal #2 TF tolerance Anticipated Discharge Needs: unable to determine at this time Follow-Up By: 11/12/19 Additional Comments F/U for TF tolerance
[2019-11-06] MEDS: ENOXAPARIN 40 MG/0.4 ML INJ SUB-Q SCH (21:13)
[2019-11-07] MEDS: INSULIN LISPRO 100 UNIT/ML SUB-Q SCH ×5 (00:30→23:16)
[2019-11-07] MEDS: MEROPENEM/NS 1 GRAM/100 ML 1 GRAM/100 ML BAG IV SCH ×3 (01:54→17:56)
[2019-11-07] MEDS: IPRATROPIUM/ALBUTEROL SULFATE 3 ML AMPUL.NEB IH SCH ×4 (02:09→19:29)
[2019-11-07 04:54] LABS: Basophils # (Auto) 0.1 K/mm3 (0.0-0.1); Basophils % (Auto) 0.4 % (0.0-1.8); Eosinophils # (Auto) 0.1 K/mm3 (0.0-0.4); Eosinophils % (Auto) 1.1 % (0.0-4.3); Hemoglobin 7.9 gm/dl (11.8-15.2); Lymphocytes # (Auto) 0.9 K/mm3 (1.2-5.4); Mean Corpuscular HGB Conc 33 % (32-34); Mean Corpuscular Volume 86 fl (84-94); Monocytes # (Auto) 0.7 K/mm3 (0.0-0.8); Monocytes % (Auto) 5.2 % (0.0-7.3); Platelet Count 307 K/mm3 (140-440); Red Cell Distribution Width 16.5 % (13.2-15.2)
[2019-11-07 05:18] LABS: BUN/Creatinine Ratio 30; Blood Urea Nitrogen 12 mg/dL (9-20); Calcium 8.2 mg/dL (8.4-10.2); Hemolysis Index 3
[2019-11-07] MEDS: METOPROLOL TARTRATE 50 MG TAB PO SCH ×3 (05:21→22:36)
[2019-11-07] MEDS: BUDESONIDE 0.5 MG/2 ML NEBU IH SCH ×2 (07:22→19:29)
[2019-11-07] MEDS: ARFORMOTEROL 15 MCG/2 ML NEBU IH SCH ×2 (07:23→19:30)
[2019-11-07] MEDS: PANTOPRAZOLE 40 MG INJ IV SCH (09:37)
[2019-11-07] MEDS: LISINOPRIL 20 MG TAB PO SCH (09:38)
[2019-11-07] MEDS: CITALOPRAM 20 MG TAB PO SCH (09:38)
[2019-11-07] MEDS: AMIODARONE 200 MG TAB PO SCH (09:38)
[2019-11-07] MEDS: MICAFUNGIN 100 MG in SODIUM CHLORIDE 0.9% 100 ML IV SCH (10:07)
[2019-11-07] MEDS: HYDROmorphone 2 MG/1 ML INJ IV PRN ×2 (10:08→19:47)
--- NOTE | 2019-11-07 11:10 | Progress Note ---
Assessment and Plan Cultures 10/10/2019 surgical culture: No growth at 72 hours 10/13/2019 tracheal aspirate culture: No growth 10/13/2019 peritoneal fluid: Enterococcus species (S to Penicillin, Vancomycin) 10/15/2019 blood culture: no growth 10/26/2019 urine culture: no growth thus far 10/26/2019 blood culture: no growth at 24 hours Assessment: 54 yo M PMhx CAD, COPD, recent complicated course of bowel perforation after a colonoscopy admitted with surgical site dehiscence of the fascia. Now with: # Acute sepsis - present with leukocytosis and tachycardia. Most likely secondary to fluid collection/abscess in the abdomen and anastomotic leak. # New fevers: new fevers on 10/25 and 10/26. Ongoing work up and empiric abx. Has indwelling PICC, Whitfield was removed 10/26. UA unremarkable for infection. # Intra-abdominal infection/abscess from anastomotic leak - s/p ex lap with closure of abdominal wall and wound vac placement (10/05/2019); s/p Re- exploration, washout, transection of colon, Abthera placement - 10/13/2019. s/p re-exploration and colostomy creation on 10/16/2019, intra-operatively was found to have "Small amount of continued leak from the old anastomotic site. Some contamination still present. Bowel was all viable". Back on OR on 10/19/2019, findings "small leak from stump staple line". OR again on 10/22/2019 for: Abdominal washout. Closure of abdominal fascia. Wound vac placement. Findings, "contamination from the sigmoid stump closure site". New drain placed 10/30 with stool-like output. # COPD, acute respiratory failure: s/p extubation. On high flow O2. # Left pneumothorax s/p chest tube placement on 10/30/2019. # Penicillin allergy - likely not a true allergy, reviewed EMR for previous exposure to PCNs, patient received several days of Zosyn in 2018 without issue. Recs: - given recent prolonged exposure to abx and TPN, at risk of MDR infections, candidemia, continue empiric Meropenem and Micafungin - Continue to monitor WBC and fevers. Stable now. Worsening count or fevers would be indication for re-scan. Dr. Lorenzo taking over tomorrow. Julianna Pineda MD, FACP [facility] ([facility] C: [phone] O: [phone] F: [phone] Subjective Date of service: 11/07/19 Principal diagnosis: acute renal failure Interval history: No fever. Sleeping. Family at bedside. Drains + with output. Objective - Exam Narrative Exam: Physical Exam: Constitutional: sleeping, no distress Head, Ears, Nose: Normocephalic, atraumatic. External ears, nose normal Eyes: Conjunctivae/corneas clear. No icterus. No ptosis. Neck: supple, no meningeal signs Cardiovascular: S1, S2 normal. Respiratory: clear b/l. Left sided chest tube + GI: Midline abdominal VAC. bowel sounds +, Colostomy +, multiple drains + Musculoskeletal: pedal edema + Skin: No rash or abscess Hem/Lymphatic: No palpable cervical or supraclavicular nodes. No lymphangitis Psych: no agitation Neurological: sleeping, no distress - Constitutional Vitals: Vital Signs Temp Pulse Resp BP Pulse Ox 98.8 F 83 16 115/57 95 11/07/19 04:00 11/07/19 10:30 11/07/19 10:30 11/07/19 10:30 11/07/19 10:30 Temperature -Last 24 Hours Temperature 98.8 F Temperature 97.6 F Temperature 98.7 F Temperature 97.6 F Temperature 98.6 F - Labs CBC & Chem 7: 11/07/19 04:06 11/07/19 04:06 Labs: Abnormal lab results 11/06/19 11/06/19 11/07/19 Range/Units 17:39 23:29 04:06 WBC 13.0 H (4.5-11.0) K/mm3 RBC 2.80 L (3.65-5.03) M/mm3 Hgb 7.9 L (11.8-15.2) gm/dl Hct 24.0 L (35.5-45.6) % RDW 16.5 H (13.2-15.2) % Lymph % (Auto) 7.0 L (13.4-35.0) % Lymph # 0.9 L (1.2-5.4) K/mm3 Seg Neutrophils % 86.3 H (40.0-70.0) % Seg Neutrophils # 11.2 H (1.8-7.7) K/mm3 Creatinine (0.8-1.5) mg/dL Glucose (75-100) mg/dL POC Glucose 110 H 113 H (70-105) Calcium (8.4-10.2) mg/dL 11/07/19 11/07/19 Range/Units 04:06 05:43 WBC (4.5-11.0) K/mm3 RBC (3.65-5.03) M/mm3 Hgb (11.8-15.2) gm/dl Hct (35.5-45.6) % RDW (13.2-15.2) % Lymph % (Auto) (13.4-35.0) % Lymph # (1.2-5.4) K/mm3 Seg Neutrophils % (40.0-70.0) % Seg Neutrophils # (1.8-7.7) K/mm3 Creatinine 0.4 L (0.8-1.5) mg/dL Glucose 110 H (75-100) mg/dL POC Glucose 114 H (70-105) Calcium 8.2 L (8.4-10.2) mg/dL
--- NOTE | 2019-11-07 11:28 | Progress Note ---
Assessment and Plan Assessment and plan: Sepsis, recurrent. Etiology likely secondary to fluid collection/abscess in the abdomen and anastomotic leak. Given recent prolonged exposure to abx and TPN, at risk of MDR infections, ID started empiric Meropenem and Micafungin Dehiscence of closure of fascia * Went to OR for ex lap with closure of abdominal wall and wound vac placement (10/05) * Continued to decline with possible Air vs fluid, 10/10/19 IR went in and placed two drains, Noted to have possible fecal material * Returned to the OR 10/13/19 due to concern for intra-abdominal infection and was found to have with heavy contamination of abdomen patent had disruption of bowel anastomosis, abdominal washout, abthera placement and colon stapled transection and left bowel enterotomy from anastomosis completely open * Returned to OR on 10/16/19 for abdominal washout, Partial Omentectomy, Partial Colectomy, Colostomy Creation and AbThera Placement * Abdominal washout and closure - 10/22 * cont wound care Acute Respiratory failure with hypoxia -Extubated 10/25/19 - Re-intubated 10/30 -Patient self extubated morning of 11/04, now on Oxygen by ID -Residential Field Manager following -Multifactorial secondary to pneumonia, pneumothorax and COPD Sepsis On Merrem, Mifungin ID Physician following right sump drain fell out Surgeon following Left pneumothorax s/p chest tube placed 10/30 Left lower lobe pneumonia -CTA chest showed left lower lobe consolidation with pleural effusion COPD -Stable -cont neb tx GUILLERMO on CKD -due to ATN due to sepsis -Improving, will monitor -SPEP and UPEP pending -No hydronephrosis on CT -Whitfield in place, monitor I/O's Severe Metabolic acidosis -Improved Acute Toxic Metabolic Encephalopathy/Delirium Tremens -Started on CIWA protocol due to hx of ETOH abuse, 6packs a day -Head CT scan negative for acute findings Acute blood loss anemia -H/H stable -Continue to monitor H&H and transfuse for hb<7 SVT, Atrial fib/flutter with RVR -treated with adenosine x1 -off amiodarone and cardizem drip. On oral amiodarone and IV Lopressor. -HR currently controlled -Cardiology following Hypotension -Off esmolol drip -s/p IV fluid boluses, BP stable Hypophosphatemia -will monitor level Hypernatremia start D5W Hypokalemia Replace iv Hx of Hypertension -Stable Hyperlipidemia -stable Atypical chest pain -probably secondary to pneumonitis -troponin levels neg Hx of OH/CAD -s/p PCI of the circumflex and second vessel POBA of the distal LAD occlusion. Left ventricle fraction of 45-50%. Morbid obesity with BMI of 43.4 -Lifestyle modification recommended Moderate Protein calorie malnutrition secondary to surgery -On TPN -Nutrition following Tobacco abuse -Cessation recommended Morbid obesity with BMI of 43.4 -Lifestyle modification recommended DVT and GI ppx: Lovenox/PPI Disp: Prognosis guarded The high probability of a clinically significant, sudden or life threatening deterioration of the [respiratory] system(s) required my full and direct attention, intervention and personal management. The aggregate critical care time was [33] minutes. This time is in addition to time spent performing reported procedures but includes the following: [x] Data Review and interpretation [x] Patient assessment and monitoring of vital signs [x] Documentation [x] Medication orders and management History Interval history: Patient self extubated. Hospitalist Physical - Constitutional Vitals: Temp Pulse Resp BP Pulse Ox 98.8 F 83 16 115/57 95 11/07/19 04:00 11/07/19 10:30 11/07/19 10:30 11/07/19 10:30 11/07/19 10:30 General appearance: Present: no acute distress, obese - EENT Eyes: Present: PERRL, EOM intact ENT: hearing intact, clear oral mucosa, dentition normal - Neck Neck: Present: supple, normal ROM - Respiratory Respiratory effort: normal Respiratory: bilateral: CTA - Cardiovascular Rhythm: regular Heart Sounds: Present: S1 & S2. Absent: gallop, rub - Extremities Extremities: no ischemia, No edema, Full ROM - Abdominal General gastrointestinal: soft, non-tender, non-distended, normal bowel sounds - Integumentary Integumentary: Present: clear, warm, dry - Neurologic Neurologic: CNII-XII intact, moves all extremities Results - Labs CBC & Chem 7: 11/07/19 04:06 11/07/19 04:06 Labs: Laboratory Last Values WBC 13.0 K/mm3 (4.5-11.0) H 11/07/19 04:06 RBC 2.80 M/mm3 (3.65-5.03) L 11/07/19 04:06 Hgb 7.9 gm/dl (11.8-15.2) L 11/07/19 04:06 Hct 24.0 % (35.5-45.6) L 11/07/19 04:06 MCV 86 fl (84-94) 11/07/19 04:06 MCH 28 pg (28-32) 11/07/19 04:06 MCHC 33 % (32-34) 11/07/19 04:06 RDW 16.5 % (13.2-15.2) H 11/07/19 04:06 Plt Count 307 K/mm3 (140-440) 11/07/19 04:06 Lymph % (Auto) 7.0 % (13.4-35.0) L 11/07/19 04:06 [place] % (Auto) 5.2 % (0.0-7.3) 11/07/19 04:06 Eos % (Auto) 1.1 % (0.0-4.3) 11/07/19 04:06 Baso % (Auto) 0.4 % (0.0-1.8) 11/07/19 04:06 Lymph # 0.9 K/mm3 (1.2-5.4) L 11/07/19 04:06 [place] # 0.7 K/mm3 (0.0-0.8) 11/07/19 04:06 Eos # 0.1 K/mm3 (0.0-0.4) 11/07/19 04:06 Baso # 0.1 K/mm3 (0.0-0.1) 11/07/19 04:06 Add Manual Diff Complete 10/16/19 09:20 Total Counted 100 10/16/19 09:20 Seg Neutrophils % 86.3 % (40.0-70.0) H 11/07/19 04:06 Seg Neuts % (Manual) 79.0 % (40.0-70.0) H 10/16/19 09:20 Band Neutrophils % 12.0 % 10/16/19 09:20 Lymphocytes % (Manual) 4.0 % (13.4-35.0) L 10/16/19 09:20 Reactive Lymphs % (Man) 0 % 10/16/19 09:20 Monocytes % (Manual) 2.0 % (0.0-7.3) 10/16/19 09:20 Eosinophils % (Manual) 0 % (0.0-4.3) 10/16/19 09:20 Basophils % (Manual) 0 % (0.0-1.8) 10/16/19 09:20 Metamyelocytes % 2.0 % 10/16/19 09:20 Myelocytes % 1.0 % 10/16/19 09:20 Promyelocytes % 0 % 10/16/19 09:20 Blast Cells % 0 % 10/16/19 09:20 Nucleated RBC % Not Reportable 10/16/19 09:20 Seg Neutrophils # 11.2 K/mm3 (1.8-7.7) H 11/07/19 04:06 Seg Neutrophils # Man 11.5 K/mm3 (1.8-7.7) H 10/16/19 09:20 Band Neutrophils # 1.8 K/mm3 10/16/19 09:20 Lymphocytes # (Manual) 0.6 K/mm3 (1.2-5.4) L 10/16/19 09:20 Abs React Lymphs (Man) 0.0 K/mm3 10/16/19 09:20 Monocytes # (Manual) 0.3 K/mm3 (0.0-0.8) 10/16/19 09:20 Eosinophils # (Manual) 0.0 K/mm3 (0.0-0.4) 10/16/19 09:20 Basophils # (Manual) 0.0 K/mm3 (0.0-0.1) 10/16/19 09:20 Metamyelocytes # 0.3 K/mm3 10/16/19 09:20 Myelocytes # 0.1 K/mm3 10/16/19 09:20 Promyelocytes # 0.0 K/mm3 10/16/19 09:20 Blast Cells # 0.0 K/mm3 10/16/19 09:20 WBC Morphology Not Reportable 10/16/19 09:20 Hypersegmented Neuts Not Reportable 10/16/19 09:20 Hyposegmented Neuts Not Reportable 10/16/19 09:20 Hypogranular Neuts Not Reportable 10/16/19 09:20 Smudge Cells Not Reportable 10/16/19 09:20 Toxic Granulation Not Reportable 10/16/19 09:20 Toxic Vacuolation Not Reportable 10/16/19 09:20 Dohle Bodies Not Reportable 10/16/19 09:20 Pelger-Huet Anomaly Not Reportable 10/16/19 09:20 Andres Rods Not Reportable 10/16/19 09:20 Platelet Estimate Consistent w auto 10/16/19 09:20 Clumped Platelets Not Reportable 10/16/19 09:20 Plt Clumps, EDTA Not Reportable 10/16/19 09:20 Large Platelets Not Reportable 10/16/19 09:20 Giant Platelets Not Reportable 10/16/19 09:20 Platelet Satelliting Not Reportable 10/16/19 09:20 Plt Morphology Comment Not Reportable 10/16/19 09:20 RBC Morphology Not Reportable 10/16/19 09:20 Dimorphic RBCs Not Reportable 10/16/19 09:20 Polychromasia Few 10/16/19 09:20 Hypochromasia Few 10/16/19 09:20 Poikilocytosis Not Reportable 10/16/19 09:20 Anisocytosis Not Reportable 10/16/19 09:20 Microcytosis Not Reportable 10/16/19 09:20 Macrocytosis Not Reportable 10/16/19 09:20 Spherocytes Not Reportable 10/16/19 09:20 Pappenheimer Bodies Not Reportable 10/16/19 09:20 Sickle Cells Not Reportable 10/16/19 09:20 Target Cells Few 10/16/19 09:20 Tear Drop Cells Not Reportable 10/16/19 09:20 Ovalocytes Not Reportable 10/16/19 09:20 Helmet Cells Not Reportable 10/16/19 09:20 Varghese-Matthews Bodies Not Reportable 10/16/19 09:20 [place] Rings Not Reportable 10/16/19 09:20 Bishnu Cells Not Reportable 10/16/19 09:20 Bite Cells Not Reportable 10/16/19 09:20 Crenated Cell Not Reportable 10/16/19 09:20 Elliptocytes Not Reportable 10/16/19 09:20 Acanthocytes (Spur) Not Reportable 10/16/19 09:20 Rouleaux Not Reportable 10/16/19 09:20 Hemoglobin C Crystals Not Reportable 10/16/19 09:20 Schistocytes Not Reportable 10/16/19 09:20 Malaria parasites Not Reportable 10/16/19 09:20 Toni Bodies Not Reportable 10/16/19 09:20 Hem Pathologist Commnt No 10/16/19 09:20 POC ABG pH 7.422 (7.35-7.45) 11/03/19 04:28 ABG pH 7.390 pH Units (7.350-7.450) 10/23/19 04:47 POC ABG pCO2 45.4 (35-45) H 11/03/19 04:28 ABG pCO2 48.4 mm Hg 10/23/19 04:47 POC ABG pO2 83 (80-105) 11/03/19 04:28 ABG pO2 68.9 mm Hg (80.0-90.0) L 10/23/19 04:47 POC ABG HCO3 29.6 (22-26 mml/L) 11/03/19 04:28 ABG HCO3 28.7 mmol/L (20.0-26.0) H 10/23/19 04:47 POC ABG Total CO2 31 (23-27mmol/L) 11/03/19 04:28 POC ABG O2 Sat 96 11/03/19 04:28 ABG O2 Saturation 96.6 % (95.0-99.0) 10/23/19 04:47 ABG O2 Content 8.8 (0.0-44) 10/23/19 04:47 POC ABG Base Excess 5 ((-2) - (+3)mmol/L) 11/03/19 04:28 ABG Base Excess 3.4 mmol/L (-2.0-3.0) H 10/23/19 04:47 ABG Hemoglobin 6.6 gm/dl (14.0-18.0) L 10/23/19 04:47 ABG Carboxyhemoglobin 2.1 % (0.0-5.0) 10/23/19 04:47 ABG Methemoglobin 0.5 % (0.0-1.5) 10/23/19 04:47 Oxyhemoglobin 94.1 % (95.0-99.0) L 10/23/19 04:47 FiO2 40 % 11/03/19 04:28 Sodium 141 mmol/L (137-145) 11/07/19 04:06 Potassium 3.6 mmol/L (3.6-5.0) 11/07/19 04:06 Chloride 99.7 mmol/L (98-107) 11/07/19 04:06 Carbon Dioxide 29 mmol/L (22-30) 11/07/19 04:06 Anion Gap 16 mmol/L 11/07/19 04:06 BUN 12 mg/dL (9-20) 11/07/19 04:06 Creatinine 0.4 mg/dL (0.8-1.5) L 11/07/19 04:06 Estimated GFR > 60 ml/min 11/07/19 04:06 BUN/Creatinine Ratio 30 % 11/07/19 04:06 Glucose 110 mg/dL (75-100) H 11/07/19 04:06 POC Glucose 114 (70-105) H 11/07/19 05:43 Hemoglobin A1c 5.7 % (4-6) 10/06/19 05:36 Lactic Acid 1.10 mmol/L (0.7-2.0) 10/13/19 04:20 Calcium 8.2 mg/dL (8.4-10.2) L 11/07/19 04:06 Ionized Calcium 5.2 mg/dL (4.8-5.6) 10/18/19 07:41 Phosphorus 2.70 mg/dL (2.5-4.5) 11/02/19 12:43 Magnesium 2.40 mg/dL (1.7-2.3) H 11/02/19 12:43 Total Bilirubin 1.10 mg/dL (0.1-1.2) 10/26/19 06:15 Direct Bilirubin 0.7 mg/dL (0-0.2) H 10/23/19 10:44 Indirect Bilirubin 0.1 mg/dL 10/23/19 10:44 AST 23 units/L (5-40) 10/26/19 06:15 ALT 13 units/L (7-56) 10/26/19 06:15 Alkaline Phosphatase 148 units/L (35-129) H 10/26/19 06:15 Ammonia 49.0 umol/L (25-60) 10/13/19 04:20 Troponin T < 0.010 ng/mL (0.00-0.029) 10/09/19 17:23 C-Reactive Protein 30.60 mg/dL (0.00-1.30) H 10/15/19 04:32 Serum Total Protein 5.2 g/dL (6.1-8.1) L 10/11/19 09:00 Total Protein 5.9 g/dL (6.3-8.2) L 10/26/19 06:15 Albumin 2.4 g/dL (3.9-5) L 10/26/19 06:15 Albumin/Globulin Ratio 0.7 % 10/26/19 06:15 Prealbumin 0.030 g/L (0.200-0.400) L 10/15/19 04:32 [id number] See scanned result 10/11/19 Unknown [id number] See scanned result 10/11/19 Unknown Beta Globulins See scanned result 10/11/19 Unknown Gamma Globulins See scanned result 10/11/19 Unknown Abnorm Protein Band 1 see below 10/11/19 09:00 PEP Interpretation See scanned result 10/11/19 Unknown Triglycerides 185 mg/dL (2-149) H 10/26/19 06:15 Urine Color Yellow (Yellow) 10/26/19 Unknown Urine Turbidity Clear (Clear) 10/26/19 Unknown Urine pH 9.0 (5.0-7.0) H 10/26/19 Unknown Ur Specific [place] 1.011 (1.003-1.030) 10/26/19 Unknown Urine Protein 30 mg/dl mg/dL (Negative) 10/26/19 Unknown Urine Glucose (UA) Neg mg/dL (Negative) 10/26/19 Unknown Urine Ketones Neg mg/dL (Negative) 10/26/19 Unknown Urine Blood Neg (Negative) 10/26/19 Unknown Urine Nitrite Neg (Negative) 10/26/19 Unknown Urine Bilirubin Neg (Negative) 10/26/19 Unknown Urine Urobilinogen < 2.0 mg/dL (<2.0) 10/26/19 Unknown Ur Leukocyte Esterase Neg (Negative) 10/26/19 Unknown Urine WBC (Auto) 1.0 /HPF (0.0-6.0) 10/26/19 Unknown Urine RBC (Auto) 1.0 /HPF (0.0-6.0) 10/26/19 Unknown Urine Bacteria (Auto) 1+ /HPF (Negative) 10/11/19 06:23 Urine Mucus Few /HPF 10/26/19 Unknown Urine Eosinophils None seen (None Seen) 10/11/19 06:23 Ur Random Creatinine See scanned result 10/11/19 Unknown U Random Total Protein See scanned result 10/11/19 Unknown Urine Creatinine 116.8 mg/dL (0.1-20.0) H 10/11/19 06:23 Urine Creatinine 118.2 mg/dL (0.1-20.0) H 10/11/19 06:23 Protein/Creatinin Ratio See scanned result 10/11/19 Unknown Urine Sodium 14 mmol/L 10/11/19 06:23 Urine Total Protein 104 mg/dL (5-11.8) H 10/11/19 06:23 Urine Total Protein 105 mg/dL (5-11.8) H 10/11/19 06:23 U Abnormal Prot Band 1 See scanned result 10/11/19 Unknown U Abnormal Prot Band 2 See scanned result 10/11/19 Unknown U Abnormal Prot Band 3 See scanned result 10/11/19 Unknown Vancomycin Trough 5.7 ug/mL (5.0-20.0) 11/05/19 09:00 Random Vancomycin 9.6 ug/mL (0-40.0) 11/03/19 03:42 Digoxin 0.7 ng/mL (0.9-2.0) L 10/19/19 04:21 Blood Type A POSITIVE 10/23/19 11:50 Antibody Screen Negative 10/23/19 11:50 Crossmatch See Detail 10/23/19 11:50 Active Medications - Current Medications Current Medications: Generic Name Dose Route Start Last Admin Trade Name Freq PRN Reason Stop Dose Admin Acetaminophen 650 mg 10/25/19 13:00 11/03/19 16:03 Tylenol FEEDTUBE 650 mg Q4H PRN Administration Fever >100.5 Albuterol/Ipratropium 1 ampul 10/06/19 02:00 11/07/19 07:22 Duoneb *Not For Prn Use* IH 1 ampul Q6HRT VERÓNICA Administration Amiodarone HCl 200 mg 10/23/19 13:00 11/07/19 09:38 Cordarone PO 200 mg QDAY VERÓNICA Administration Lipase/Protease/Amylase 1 each 10/20/19 10:37 Pancreaze 10,500 Unit FEEDTUBE PRN PRN For Clogged Feeding Tube Arformoterol Tartrate 15 mcg 10/06/19 08:30 11/07/19 07:23 Brovana Nebu IH 15 mcg Q12HRT VERÓNICA Administration Budesonide 0.5 mg 10/07/19 12:20 11/07/19 07:22 Pulmicort IH 0.5 mg Q12HRT VERÓNICA Administration Citalopram Hydrobromide 20 mg 10/27/19 12:00 11/07/19 09:38 Celexa PO 20 mg DAILY VERÓNICA Administration Enoxaparin Sodium 40 mg 11/05/19 22:00 11/06/19 21:13 Enoxaparin SUB-Q 40 mg QDAY@2200 [facility] Administration Fentanyl 50 mcg 10/25/19 12:35 11/02/19 11:55 Sublimaze IV 50 mcg Q2H PRN Administration PAIN SCORE </=5 Haloperidol Lactate 5 mg 10/25/19 18:22 11/03/19 21:22 Haldol IV 5 mg Q6H PRN Administration Agitation Hydralazine HCl 10 mg 10/28/19 14:09 11/02/19 15:34 Apresoline IV 10 mg Q4HR PRN Administration Hypertension Hydromorphone HCl 2 mg 10/25/19 12:35 11/07/19 10:08 Dilaudid IV 2 mg Q4H PRN Administration PAIN SCORE >/=6 MEROPENEM/NS 1 GRAM/100 ML 1 gram in 100 mls @ 100 mls/hr 10/26/19 18:30 11/07/19 09:38 Merrem/Ns 1 Gram/100 Ml IV 100 mls/hr Q8H [facility] Administration Protocol Micafungin Sodium 100 mg/ 100 mls @ 100 mls/hr 10/26/19 18:30 11/07/19 10:07 Sodium Chloride IV 100 mls/hr QDAY [facility] Administration Protocol Insulin Human Lispro 0 unit 10/14/19 12:00 11/07/19 05:23 Humalog SUB-Q Not Given Q6HR [facility] Protocol Lisinopril 20 mg 10/30/19 10:00 11/07/19 09:38 Zestril PO 20 mg QDAY VERÓNICA Administration Metoprolol Tartrate 2.5 mg 10/15/19 15:34 11/01/19 18:00 Metoprolol IV 2.5 mg Q4HR PRN Administration HR >130 Metoprolol Tartrate 50 mg 10/25/19 14:00 11/07/19 05:21 Metoprolol PO 50 mg Q8HR VERÓNICA Administration Multi-Ingred Cream/Lotion/Oil/Oint 1 applic 10/14/19 02:19 Artificial Tears Ophth Oint OU Q4HR PRN Dry Eye(s) Pantoprazole Sodium 40 mg 10/15/19 10:00 11/07/19 09:37 Protonix IV 40 mg QDAY VERÓNICA Administration Simple Syrup 15 ml 10/20/19 10:37 Simple Syrup FEEDTUBE PRN PRN Hypoglycemia Simple Syrup 30 ml 10/20/19 10:37 Simple Syrup FEEDTUBE PRN PRN Hypoglycemia Sodium Bicarbonate 325 mg 10/20/19 10:37 Sodium Bicarbonate FEEDTUBE PRN PRN For Clogged Feeding Tube Nutrition/Malnutrition Assess - Dietary Evaluation Nutrition/Malnutrition Findings: Nutrition Notes Start: 10/08/19 11:36 Freq: Status: Active Protocol: Document 11/05/19 11:30 LM (Rec: 11/05/19 11:39 LM [email or web address]) Nutrition Notes Initial or Follow up Reassessment Other Pertinent Diagnosis intra-abdominal infection, disruption of bowel anastomosis, LE edema Current Diet Osmolite 1.5 at 60 ml/hr Labs/Tests K 3.4 Cr 0.4 BG 106 HgbA1C 5.7 Pertinent Medications Reviewed Height 6 ft Weight 145 kg [place] Body Weight (kg) 80.90 BMI 43.3 Weight Status Morbidly Obese Subjective/Other Information Osmolite running at 60 ml/hr. Pt tolerating new TF. Percent of energy/protein needs met: 100%/66% Burn Absent Trauma Absent GI Symptoms None Current % PO Negligible Minimum of two criteria No physical signs of malnutrition Fluid Accumulation Mild (non-severe) #2 Nutrition Diagnosis Inadequate oral intake Diagnosis Progress(for reassessment Continues documentation) #1 Nutrition Diagnosis Increased nutrient needs ( specify in comment below) Diagnosis Progress(for reassessment Continues documentation) Is patient on ventilator? No Is Patient Ambulatory and/or Out of Bed No REE-([place]-confined to bed) 2785.236 Kcal/Kg value to use for calculation 14 Approximate Energy Requirements Using 2030 kcal/Kg Calculation Used for Recommendations Kcal/kg Additional Notes Protein: 136-169g (1.2-1.5g/kg ) AdjBW 113kg Fluid 1 ml/kcal or per MD Nutrition Intervention Change Diet Order: Continue TF Nutrition Support: Osmolite 1.5 at 60 ml/hr Flush 170 ml q4hr Kcal 2,160 Protein (gm) 90 Fluid (mL) 1,097 Goal #1 Meet at least 80% of kcal/ protein needs via TF Goal #2 TF tolerance Anticipated Discharge Needs: unable to determine at this time Follow-Up By: 11/12/19 Additional Comments F/U for TF tolerance
--- NOTE | 2019-11-07 14:13 | Progress Note ---
Assessment and Plan - Patient Problems (1) Dehiscence of closure of fascia, superficial or muscular Current Visit: No Status: Acute Qualifiers: Encounter type: initial encounter Qualified Code(s): T81.32XA - Disruption of internal operation (surgical) wound, not elsewhere classified, initial encounter Plan to address problem: Pt stable. s/p ex lap with closure of abdominal wall and wound vac placement (10/05) - POD#33; s/p Re-exploration, washout, transection of colon, Abthera placement - 10/13 - POD#25; s/p abd washout, partial omentectomy, partial colectomy with colostomy - 10/16 POD#22. s/p abd washout, feeding tube placement, AbThera placement - 10/19 - POD#19; Abdominal washout and closure - 10/22 - POD#16 Patient appears stable. WBC slightly higher, but no fevers Rec: 1) Neuro - self-extubated 11/04. 2) CV - BP normal today 3) Resp - On NC. Small bore CT on left. Mgmt per ICU team. Respiratory rate much better. 4) GI - Ostomy looks good. Functioning. Sump drains - Right drain was accidentally pulled out (10/30). Left one is still functioning. New small bore catheter placed 10/30 - moderate output after drain was stripped. Appears like stool. Plan to connect both to wall suction - continuous. Output slowly trending down. Wound Vac - wound looked good on last check. continue wound vac. Ostomy - functioning now. Gastric Port - Appears to be tolerating the clamping. Residuals are minimal. Ok to begin water flushes in place of IVFs Rectal tube (malecot) - placed to help decompress rectosigmoid area. Ok if there is drainage around the tube. Will decrease irrigation to BID. Will consider removal the week of Nov 26. 5) - BUN/Cr stable. 6) ID - Abx per ID. Enterococcus on cultures. If patient has worsening labs/vit als, then rescan and place additional drains as appropriate. 7) Nutrition - Tube feeds at goal. Would consider Speech therapy eval again for swallowing. Ok to give free water flushes via gastric port. 8) DVT prophylaxis - SCDs. Lovenox 9) Family -no family at bedside. Spoke with and son at bedside. 10) PT - will need rehab. Note: Spoke with [facility] on 11/01/19 about possible transfer. They reviewed the notes that were sent and we discussed the case. They felt that they had nothing else to offer. They agreed with our management. Also agreed that another exploration should not be done. If needed, additional drains can be placed. They did suggest putting a Malecot tube in the rectum to decompress that area. (That has been done). This conversation was communicated to the . Please call with questions. Subjective Date of service: 11/07/19 Patient Reports: Positive: no new complaints, pain is less, afebrile Objective Vital Signs - 12hr 11/07/19 11/07/19 11/07/19 02:30 03:00 03:30 Temperature Pulse Rate 80 85 82 Pulse Rate [ Anterior Bilateral Throughout] Pulse Rate [ From Monitor] Respiratory 13 21 16 Rate Respiratory Rate [Anterior Bilateral Throughout] Blood Pressure 130/61 125/52 132/55 O2 Sat by Pulse 97 95 94 Oximetry 11/07/19 11/07/19 11/07/19 04:00 04:30 05:00 Temperature 98.8 F Pulse Rate 84 86 83 Pulse Rate [ Anterior Bilateral Throughout] Pulse Rate [ 8 L From Monitor] Respiratory 23 17 25 H Rate Respiratory Rate [Anterior Bilateral Throughout] Blood Pressure 129/51 127/53 114/54 O2 Sat by Pulse 95 97 96 Oximetry 11/07/19 11/07/19 11/07/19 05:21 05:30 06:00 Temperature Pulse Rate 83 83 78 Pulse Rate [ Anterior Bilateral Throughout] Pulse Rate [ From Monitor] Respiratory 19 18 Rate Respiratory Rate [Anterior Bilateral Throughout] Blood Pressure 114/54 128/62 122/55 O2 Sat by Pulse 98 95 Oximetry 11/07/19 11/07/19 11/07/19 06:30 07:00 07:23 Temperature Pulse Rate 80 74 Pulse Rate [ 82 Anterior Bilateral Throughout] Pulse Rate [ From Monitor] Respiratory 16 21 Rate Respiratory 20 Rate [Anterior Bilateral Throughout] Blood Pressure 129/57 133/63 O2 Sat by Pulse 96 97 Oximetry 11/07/19 11/07/19 11/07/19 07:26 07:30 08:00 Temperature 99.2 F Pulse Rate 79 84 Pulse Rate [ Anterior Bilateral Throughout] Pulse Rate [ 89 From Monitor] Respiratory 16 24 Rate Respiratory Rate [Anterior Bilateral Throughout] Blood Pressure 138/69 136/72 O2 Sat by Pulse 98 93 95 Oximetry 11/07/19 11/07/19 11/07/19 08:30 09:00 09:31 Temperature Pulse Rate 87 89 87 Pulse Rate [ Anterior Bilateral Throughout] Pulse Rate [ From Monitor] Respiratory 28 H 14 12 Rate Respiratory Rate [Anterior Bilateral Throughout] Blood Pressure 131/71 139/70 131/48 O2 Sat by Pulse 93 94 94 Oximetry 11/07/19 11/07/19 11/07/19 09:38 10:00 10:30 Temperature Pulse Rate 84 81 83 Pulse Rate [ Anterior Bilateral Throughout] Pulse Rate [ From Monitor] Respiratory 19 16 Rate Respiratory Rate [Anterior Bilateral Throughout] Blood Pressure 131/48 130/56 115/57 O2 Sat by Pulse 98 95 Oximetry 11/07/19 11/07/19 11/07/19 11:00 11:30 12:00 Temperature Pulse Rate 83 82 80 Pulse Rate [ Anterior Bilateral Throughout] Pulse Rate [ 81 From Monitor] Respiratory 15 15 17 Rate Respiratory Rate [Anterior Bilateral Throughout] Blood Pressure 118/53 112/49 116/49 O2 Sat by Pulse 94 95 96 Oximetry 11/07/19 11/07/19 11/07/19 12:30 13:00 13:15 Temperature Pulse Rate 82 83 83 Pulse Rate [ Anterior Bilateral Throughout] Pulse Rate [ From Monitor] Respiratory 19 22 Rate Respiratory Rate [Anterior Bilateral Throughout] Blood Pressure 111/55 114/65 114/65 O2 Sat by Pulse 96 Oximetry 11/07/19 13:30 Temperature Pulse Rate 77 Pulse Rate [ Anterior Bilateral Throughout] Pulse Rate [ From Monitor] Respiratory 15 Rate Respiratory Rate [Anterior Bilateral Throughout] Blood Pressure 116/64 O2 Sat by Pulse 97 Oximetry - General physical appearance no distress, no pain, other (looks better) - Respiratory normal expansion, normal respiratory effort (more relaxed appearance) - Abdomen soft, not tender, not distended, other (wound vac and drains working well. stool in ostomy bag) - Psychiatric oriented to time, oriented to person, oriented to place, speech is normal, memory intact - Labs 11/07/19 04:06 11/07/19 04:06 Diabetes panel 11/07/19 Range/Units 04:06 Sodium 141 (137-145) mmol/L Potassium 3.6 (3.6-5.0) mmol/L Chloride 99.7 (98-107) mmol/L Carbon Dioxide 29 (22-30) mmol/L BUN 12 (9-20) mg/dL Creatinine 0.4 L (0.8-1.5) mg/dL Glucose 110 H (75-100) mg/dL Calcium 8.2 L (8.4-10.2) mg/dL Calcium panel 11/07/19 Range/Units 04:06 Calcium 8.2 L (8.4-10.2) mg/dL Pituitary panel 11/07/19 Range/Units 04:06 Sodium 141 (137-145) mmol/L Potassium 3.6 (3.6-5.0) mmol/L Chloride 99.7 (98-107) mmol/L Carbon Dioxide 29 (22-30) mmol/L BUN 12 (9-20) mg/dL Creatinine 0.4 L (0.8-1.5) mg/dL Glucose 110 H (75-100) mg/dL Calcium 8.2 L (8.4-10.2) mg/dL Adrenal panel 11/07/19 Range/Units 04:06 Sodium 141 (137-145) mmol/L Potassium 3.6 (3.6-5.0) mmol/L Chloride 99.7 (98-107) mmol/L Carbon Dioxide 29 (22-30) mmol/L BUN 12 (9-20) mg/dL Creatinine 0.4 L (0.8-1.5) mg/dL Glucose 110 H (75-100) mg/dL Calcium 8.2 L (8.4-10.2) mg/dL
--- NOTE | 2019-11-07 15:07 | Progress Note ---
Assessment and Plan Perforated: Post colonoscopy Severe peritonitis Multiple fistula formations Sepsis Left pneumothorax now resolved Status post acute respiratory failure, resolved. Recommendations. Continue with the antibiotic therapy as per ID Continue with aggressive pulmonary toilet Continue with supplemental oxygen. Continue with incentive spirometry's. Continue with a chest tube at this point however we will discuss with IR with possible removal in next few days Out of bed as much as possible. Total critical care time 31 minute Subjective Date of service: 11/07/19 Principal diagnosis: acute renal failure Interval history: Patient alert and awake. Complain of discomfort at's patient in abdominal area but no shauna pain still with multiple abdominal drains. Chest tube showed no fluctuation or air leak. Objective Vital Signs - 12hr 11/07/19 11/07/19 11/07/19 03:30 04:00 04:30 Temperature 98.8 F Pulse Rate 82 84 86 Pulse Rate [ Anterior Bilateral Throughout] Pulse Rate [ 8 L From Monitor] Respiratory 16 23 17 Rate Respiratory Rate [Anterior Bilateral Throughout] Blood Pressure 132/55 129/51 127/53 O2 Sat by Pulse 94 95 97 Oximetry 11/07/19 11/07/19 11/07/19 05:00 05:21 05:30 Temperature Pulse Rate 83 83 83 Pulse Rate [ Anterior Bilateral Throughout] Pulse Rate [ From Monitor] Respiratory 25 H 19 Rate Respiratory Rate [Anterior Bilateral Throughout] Blood Pressure 114/54 114/54 128/62 O2 Sat by Pulse 96 98 Oximetry 11/07/19 11/07/19 11/07/19 06:00 06:30 07:00 Temperature Pulse Rate 78 80 74 Pulse Rate [ Anterior Bilateral Throughout] Pulse Rate [ From Monitor] Respiratory 18 16 21 Rate Respiratory Rate [Anterior Bilateral Throughout] Blood Pressure 122/55 129/57 133/63 O2 Sat by Pulse 95 96 97 Oximetry 11/07/19 11/07/19 11/07/19 07:23 07:26 07:30 Temperature Pulse Rate 79 Pulse Rate [ 82 Anterior Bilateral Throughout] Pulse Rate [ From Monitor] Respiratory 16 Rate Respiratory 20 Rate [Anterior Bilateral Throughout] Blood Pressure 138/69 O2 Sat by Pulse 98 93 Oximetry 11/07/19 11/07/19 11/07/19 08:00 08:30 09:00 Temperature 99.2 F Pulse Rate 84 87 89 Pulse Rate [ Anterior Bilateral Throughout] Pulse Rate [ 89 From Monitor] Respiratory 24 28 H 14 Rate Respiratory Rate [Anterior Bilateral Throughout] Blood Pressure 136/72 131/71 139/70 O2 Sat by Pulse 95 93 94 Oximetry 11/07/19 11/07/19 11/07/19 09:31 09:38 10:00 Temperature Pulse Rate 87 84 81 Pulse Rate [ Anterior Bilateral Throughout] Pulse Rate [ From Monitor] Respiratory 12 19 Rate Respiratory Rate [Anterior Bilateral Throughout] Blood Pressure 131/48 131/48 130/56 O2 Sat by Pulse 94 98 Oximetry 11/07/19 11/07/19 11/07/19 10:30 11:00 11:30 Temperature Pulse Rate 83 83 82 Pulse Rate [ Anterior Bilateral Throughout] Pulse Rate [ From Monitor] Respiratory 16 15 15 Rate Respiratory Rate [Anterior Bilateral Throughout] Blood Pressure 115/57 118/53 112/49 O2 Sat by Pulse 95 94 95 Oximetry 11/07/19 11/07/19 11/07/19 12:00 12:30 13:00 Temperature Pulse Rate 80 82 83 Pulse Rate [ Anterior Bilateral Throughout] Pulse Rate [ 81 From Monitor] Respiratory 17 19 22 Rate Respiratory Rate [Anterior Bilateral Throughout] Blood Pressure 116/49 111/55 114/65 O2 Sat by Pulse 96 96 Oximetry 11/07/19 11/07/19 13:15 13:30 Temperature Pulse Rate 83 77 Pulse Rate [ Anterior Bilateral Throughout] Pulse Rate [ From Monitor] Respiratory 15 Rate Respiratory Rate [Anterior Bilateral Throughout] Blood Pressure 114/65 116/64 O2 Sat by Pulse 97 Oximetry Constitutional: no acute distress, alert, other (obese) Eyes: non-icteric ENT: oropharynx moist Neck: supple Effort: mildly labored Ascultation: Bilateral: diminished breath sounds (bases) Cardiovascular: regular rate and rhythm (no mrg) Gastrointestinal: tender, other (obese, distended, multiple drains and surgical wounds/scars) Integumentary: normal Extremities: no cyanosis, pink and warm, edema (1+ bilateral LE edema) Neurologic: normal mental status, non-focal exam, pupils equal and round Psychiatric: mood appropriate, affect normal CBC and BMP: 11/07/19 04:06 11/07/19 04:06 ABG, PT/INR, D-dimer: ABG POC ABG pH 7.422 (7.35-7.45) 11/03/19 04:28 ABG pH 7.390 pH Units (7.350-7.450) 10/23/19 04:47 POC ABG pCO2 45.4 (35-45) H 11/03/19 04:28 ABG pCO2 48.4 mm Hg 10/23/19 04:47 POC ABG pO2 83 (80-105) 11/03/19 04:28 ABG pO2 68.9 mm Hg (80.0-90.0) L 10/23/19 04:47 POC ABG HCO3 29.6 (22-26 mml/L) 11/03/19 04:28 POC ABG Total CO2 31 (23-27mmol/L) 11/03/19 04:28 POC ABG O2 Sat 96 11/03/19 04:28 ABG O2 Saturation 96.6 % (95.0-99.0) 10/23/19 04:47 Abnormal lab findings: Abnormal Labs 10/06/19 10/06/19 10/07/19 05:36 05:36 05:54 WBC 21.8 H 21.5 H RBC 3.55 L Hgb 10.9 L Hct 32.7 L MCHC RDW Plt Count Lymph % (Auto) [place] % (Auto) Lymph # [place] # Seg Neutrophils % Seg Neuts % (Manual) 91.0 H Lymphocytes % (Manual) 2.0 L Seg Neutrophils # Seg Neutrophils # Man 19.8 H Lymphocytes # (Manual) 0.4 L Monocytes # (Manual) 1.1 H POC ABG pH ABG pH POC ABG pCO2 POC ABG pO2 ABG pO2 ABG HCO3 ABG Base Excess ABG Hemoglobin Oxyhemoglobin Sodium 135 L Potassium Chloride 95.9 L Carbon Dioxide BUN Creatinine 0.7 L Glucose POC Glucose Calcium Phosphorus Magnesium Direct Bilirubin AST Alkaline Phosphatase C-Reactive Protein Serum Total Protein Total Protein 5.7 L Albumin 2.5 L Prealbumin Pejkv-7-Xhmedujvk Agdux-2-Leltkklkm Gamma Globulins PEP Interpretation Triglycerides Urine pH Urine Creatinine Urine Total Protein Vancomycin Trough Digoxin Crossmatch 10/07/19 10/09/19 10/09/19 05:54 10:52 10:52 WBC 16.6 H RBC Hgb Hct MCHC RDW Plt Count 498 H Lymph % (Auto) [place] % (Auto) Lymph # [place] # Seg Neutrophils % Seg Neuts % (Manual) 93.0 H Lymphocytes % (Manual) 5.0 L Seg Neutrophils # Seg Neutrophils # Man 15.4 H Lymphocytes # (Manual) 0.8 L Monocytes # (Manual) POC ABG pH ABG pH POC ABG pCO2 POC ABG pO2 ABG pO2 ABG HCO3 ABG Base Excess ABG Hemoglobin Oxyhemoglobin Sodium Potassium Chloride 97.9 L Carbon Dioxide 20 L D BUN 23 H Creatinine 1.7 H D Glucose 109 H POC Glucose Calcium 8.1 L Phosphorus Magnesium Direct Bilirubin AST Alkaline Phosphatase C-Reactive Protein Serum Total Protein Total Protein Albumin Prealbumin Uyxhg-6-Nbhmyztki Ufdmc-0-Scrjszgwf Gamma Globulins PEP Interpretation Triglycerides Urine pH Urine Creatinine Urine Total Protein Vancomycin Trough Digoxin Crossmatch 10/09/19 10/10/19 10/10/19 17:23 05:30 05:30 WBC 14.6 H RBC Hgb 11.1 L Hct 33.5 L MCHC RDW Plt Count 527 H Lymph % (Auto) [place] % (Auto) Lymph # [place] # Seg Neutrophils % Seg Neuts % (Manual) Lymphocytes % (Manual) Seg Neutrophils # Seg Neutrophils # Man Lymphocytes # (Manual) Monocytes # (Manual) POC ABG pH ABG pH POC ABG pCO2 POC ABG pO2 ABG pO2 ABG HCO3 ABG Base Excess ABG Hemoglobin Oxyhemoglobin Sodium 130 L D Potassium 5.1 H Chloride 90.0 L 91.0 L Carbon Dioxide 20 L 20 L BUN 27 H 35 H Creatinine 1.9 H 2.0 H Glucose 104 H POC Glucose Calcium Phosphorus Magnesium Direct Bilirubin AST Alkaline Phosphatase C-Reactive Protein Serum Total Protein Total Protein Albumin Prealbumin Suqqq-7-Rwbupjypw Gdevj-0-Rajqittao Gamma Globulins PEP Interpretation Triglycerides Urine pH Urine Creatinine Urine Total Protein Vancomycin Trough Digoxin Crossmatch 10/10/19 10/10/19 10/11/19 08:33 08:44 05:41 WBC 13.2 H RBC Hgb 11.3 L Hct 33.8 L MCHC RDW 15.3 H Plt Count 543 H Lymph % (Auto) [place] % (Auto) Lymph # [place] # Seg Neutrophils % Seg Neuts % (Manual) Lymphocytes % (Manual) Seg Neutrophils # Seg Neutrophils # Man Lymphocytes # (Manual) Monocytes # (Manual) POC ABG pH ABG pH POC ABG pCO2 POC ABG pO2 ABG pO2 ABG HCO3 ABG Base Excess ABG Hemoglobin Oxyhemoglobin Sodium Potassium Chloride Carbon Dioxide BUN Creatinine Glucose 113 H POC Glucose 117 H Calcium Phosphorus Magnesium Direct Bilirubin AST Alkaline Phosphatase C-Reactive Protein Serum Total Protein Total Protein Albumin Prealbumin Cclkz-1-Mnksdfxft Awcnz-8-Phpczngic Gamma Globulins PEP Interpretation Triglycerides Urine pH Urine Creatinine Urine Total Protein Vancomycin Trough Digoxin Crossmatch 10/11/19 10/11/19 10/11/19 05:41 06:23 06:23 WBC RBC Hgb Hct MCHC RDW Plt Count Lymph % (Auto) [place] % (Auto) Lymph # [place] # Seg Neutrophils % Seg Neuts % (Manual) Lymphocytes % (Manual) Seg Neutrophils # Seg Neutrophils # Man Lymphocytes # (Manual) Monocytes # (Manual) POC ABG pH ABG pH POC ABG pCO2 POC ABG pO2 ABG pO2 ABG HCO3 ABG Base Excess ABG Hemoglobin Oxyhemoglobin Sodium 134 L Potassium Chloride 96.3 L Carbon Dioxide BUN 37 H Creatinine Glucose 58 L POC Glucose Calcium Phosphorus 4.90 H Magnesium Direct Bilirubin AST Alkaline Phosphatase C-Reactive Protein Serum Total Protein Total Protein Albumin Prealbumin Sshed-0-Wgwhjhlbu Qywbd-1-Lbncxmydj Gamma Globulins PEP Interpretation Triglycerides Urine pH Urine Creatinine 118.2 H 116.8 H Urine Total Protein 105 H 104 H Vancomycin Trough Digoxin Crossmatch 10/11/19 10/12/19 10/12/19 09:00 06:09 06:09 WBC 13.8 H RBC 3.39 L Hgb 10.2 L Hct 30.9 L MCHC RDW 15.5 H Plt Count 459 H Lymph % (Auto) [place] % (Auto) Lymph # [place] # Seg Neutrophils % Seg Neuts % (Manual) Lymphocytes % (Manual) Seg Neutrophils # Seg Neutrophils # Man Lymphocytes # (Manual) Monocytes # (Manual) POC ABG pH ABG pH POC ABG pCO2 POC ABG pO2 ABG pO2 ABG HCO3 ABG Base Excess ABG Hemoglobin Oxyhemoglobin Sodium 131 L Potassium Chloride 96.2 L Carbon Dioxide 21 L BUN 43 H Creatinine Glucose 72 L POC Glucose Calcium Phosphorus Magnesium Direct Bilirubin AST Alkaline Phosphatase C-Reactive Protein Serum Total Protein 5.2 L Total Protein Albumin 1.9 L Prealbumin Rxzbt-5-Drjnkykdx 0.9 H Hylox-3-Hrurhumou 1.0 H Gamma Globulins 0.7 L PEP Interpretation see below H Triglycerides Urine pH Urine Creatinine Urine Total Protein Vancomycin Trough Digoxin Crossmatch 10/12/19 10/12/19 10/12/19 08:20 09:30 09:30 WBC RBC Hgb Hct MCHC RDW Plt Count Lymph % (Auto) [place] % (Auto) Lymph # [place] # Seg Neutrophils % Seg Neuts % (Manual) Lymphocytes % (Manual) Seg Neutrophils # Seg Neutrophils # Man Lymphocytes # (Manual) Monocytes # (Manual) POC ABG pH ABG pH POC ABG pCO2 POC ABG pO2 63 L ABG pO2 ABG HCO3 ABG Base Excess ABG Hemoglobin Oxyhemoglobin Sodium Potassium Chloride Carbon Dioxide BUN Creatinine Glucose POC Glucose Calcium Phosphorus Magnesium 2.50 H Direct Bilirubin 0.3 H AST Alkaline Phosphatase C-Reactive Protein Serum Total Protein Total Protein 5.1 L Albumin 2.2 L Prealbumin Jglpz-3-Cyxfcigxk Vnqdj-5-Omqbahpub Gamma Globulins PEP Interpretation Triglycerides Urine pH Urine Creatinine Urine Total Protein Vancomycin Trough Digoxin Crossmatch 10/13/19 10/13/19 10/13/19 04:20 04:20 13:20 WBC 15.7 H RBC 3.64 L Hgb 10.9 L Hct 33.1 L MCHC RDW 15.8 H Plt Count 488 H Lymph % (Auto) [place] % (Auto) Lymph # [place] # Seg Neutrophils % Seg Neuts % (Manual) Lymphocytes % (Manual) Seg Neutrophils # Seg Neutrophils # Man Lymphocytes # (Manual) Monocytes # (Manual) POC ABG pH ABG pH POC ABG pCO2 POC ABG pO2 ABG pO2 ABG HCO3 ABG Base Excess ABG Hemoglobin Oxyhemoglobin Sodium Potassium Chloride Carbon Dioxide BUN 28 H Creatinine Glucose POC Glucose Calcium Phosphorus Magnesium Direct Bilirubin AST Alkaline Phosphatase C-Reactive Protein Serum Total Protein Total Protein Albumin Prealbumin Pjqkm-9-Wptduwbte Wwnzb-0-Sknkcqugu Gamma Globulins PEP Interpretation Triglycerides Urine pH Urine Creatinine Urine Total Protein Vancomycin Trough Digoxin Crossmatch See Detail 10/13/19 10/13/19 10/14/19 18:24 20:05 04:47 WBC 24.2 H RBC Hgb 10.9 L Hct 34.2 L MCHC RDW 17.0 H Plt Count 442 H Lymph % (Auto) [place] % (Auto) Lymph # [place] # Seg Neutrophils % Seg Neuts % (Manual) Lymphocytes % (Manual) Seg Neutrophils # Seg Neutrophils # Man Lymphocytes # (Manual) Monocytes # (Manual) POC ABG pH ABG pH 7.180 L* 7.278 L POC ABG pCO2 POC ABG pO2 ABG pO2 130.7 H ABG HCO3 ABG Base Excess -6.5 L -6.5 L ABG Hemoglobin 12.2 L 12.3 L Oxyhemoglobin 92.9 L Sodium Potassium Chloride Carbon Dioxide BUN Creatinine Glucose POC Glucose Calcium Phosphorus Magnesium Direct Bilirubin AST Alkaline Phosphatase C-Reactive Protein Serum Total Protein Total Protein Albumin Prealbumin Uanfn-7-Uvpprabol Sxucv-8-Dooaprqwk Gamma Globulins PEP Interpretation Triglycerides Urine pH Urine Creatinine Urine Total Protein Vancomycin Trough Digoxin Crossmatch 10/14/19 10/14/19 10/14/19 04:47 05:40 10:14 WBC RBC Hgb Hct MCHC RDW Plt Count Lymph % (Auto) [place] % (Auto) Lymph # [place] # Seg Neutrophils % Seg Neuts % (Manual) Lymphocytes % (Manual) Seg Neutrophils # Seg Neutrophils # Man Lymphocytes # (Manual) Monocytes # (Manual) POC ABG pH ABG pH POC ABG pCO2 POC ABG pO2 ABG pO2 76.3 L ABG HCO3 19.1 L ABG Base Excess -5.8 L ABG Hemoglobin 10.9 L Oxyhemoglobin 93.4 L Sodium Potassium 5.1 H D Chloride 109.2 H Carbon Dioxide 17 L BUN 38 H Creatinine 1.8 H D Glucose 104 H POC Glucose Calcium 7.4 L Phosphorus 5.60 H Magnesium Direct Bilirubin AST Alkaline Phosphatase C-Reactive Protein Serum Total Protein Total Protein Albumin Prealbumin Bawyk-2-Pimyprehe Akxjx-5-Yanpsijjr Gamma Globulins PEP Interpretation Triglycerides Urine pH Urine Creatinine Urine Total Protein Vancomycin Trough Digoxin Crossmatch 10/14/19 10/15/19 10/15/19 23:46 04:32 04:32 WBC 15.5 H RBC 2.89 L Hgb 8.8 L Hct 27.3 L D MCHC RDW 16.6 H Plt Count Lymph % (Auto) [place] % (Auto) Lymph # [place] # Seg Neutrophils % Seg Neuts % (Manual) Lymphocytes % (Manual) Seg Neutrophils # Seg Neutrophils # Man Lymphocytes # (Manual) Monocytes # (Manual) POC ABG pH ABG pH POC ABG pCO2 POC ABG pO2 ABG pO2 ABG HCO3 ABG Base Excess ABG Hemoglobin Oxyhemoglobin Sodium 147 H Potassium Chloride 114.0 H Carbon Dioxide 19 L BUN 42 H Creatinine Glucose 112 H POC Glucose 113 H Calcium 7.3 L Phosphorus Magnesium Direct Bilirubin AST 72 H Alkaline Phosphatase C-Reactive Protein 30.60 H Serum Total Protein Total Protein 4.0 L D Albumin 1.7 L Prealbumin 0.030 L Hrczd-4-Twwlowthy Sapdk-2-Mgvcgsmuz Gamma Globulins PEP Interpretation Triglycerides Urine pH Urine Creatinine Urine Total Protein Vancomycin Trough Digoxin Crossmatch 10/15/19 10/15/19 10/15/19 05:30 12:08 17:23 WBC RBC Hgb Hct MCHC RDW Plt Count Lymph % (Auto) [place] % (Auto) Lymph # [place] # Seg Neutrophils % Seg Neuts % (Manual) Lymphocytes % (Manual) Seg Neutrophils # Seg Neutrophils # Man Lymphocytes # (Manual) Monocytes # (Manual) POC ABG pH ABG pH 7.296 L POC ABG pCO2 POC ABG pO2 ABG pO2 114.7 H ABG HCO3 ABG Base Excess -3.7 L ABG Hemoglobin 8.9 L Oxyhemoglobin Sodium Potassium Chloride Carbon Dioxide BUN Creatinine Glucose POC Glucose 106 H 106 H Calcium Phosphorus Magnesium Direct Bilirubin AST Alkaline Phosphatase C-Reactive Protein Serum Total Protein Total Protein Albumin Prealbumin Ijlin-2-Htjhopdwn Usfzt-2-Nwjovsxsq Gamma Globulins PEP Interpretation Triglycerides Urine pH Urine Creatinine Urine Total Protein Vancomycin Trough Digoxin Crossmatch 10/16/19 10/16/19 10/16/19 00:07 04:44 05:24 WBC RBC Hgb Hct MCHC RDW Plt Count Lymph % (Auto) [place] % (Auto) Lymph # [place] # Seg Neutrophils % Seg Neuts % (Manual) Lymphocytes % (Manual) Seg Neutrophils # Seg Neutrophils # Man Lymphocytes # (Manual) Monocytes # (Manual) POC ABG pH ABG pH POC ABG pCO2 POC ABG pO2 ABG pO2 ABG HCO3 ABG Base Excess ABG Hemoglobin Oxyhemoglobin Sodium 150 H Potassium Chloride 115.8 H Carbon Dioxide BUN 35 H Creatinine Glucose 129 H POC Glucose 119 H 129 H Calcium 7.3 L Phosphorus 1.80 L D Magnesium Direct Bilirubin AST Alkaline Phosphatase C-Reactive Protein Serum Total Protein Total Protein Albumin Prealbumin Exdod-0-Bwcejfrvr Txioh-0-Mmgwmzfif Gamma Globulins PEP Interpretation Triglycerides Urine pH Urine Creatinine Urine Total Protein Vancomycin Trough Digoxin Crossmatch 10/16/19 10/16/19 10/16/19 06:53 09:20 11:58 WBC 14.6 H RBC 2.70 L Hgb 8.1 L Hct 25.2 L MCHC RDW 16.7 H Plt Count Lymph % (Auto) [place] % (Auto) Lymph # [place] # Seg Neutrophils % Seg Neuts % (Manual) 79.0 H Lymphocytes % (Manual) 4.0 L Seg Neutrophils # Seg Neutrophils # Man 11.5 H Lymphocytes # (Manual) 0.6 L Monocytes # (Manual) POC ABG pH ABG pH POC ABG pCO2 47.0 H POC ABG pO2 ABG pO2 ABG HCO3 ABG Base Excess ABG Hemoglobin Oxyhemoglobin Sodium Potassium Chloride Carbon Dioxide BUN Creatinine Glucose POC Glucose Calcium Phosphorus Magnesium Direct Bilirubin AST Alkaline Phosphatase C-Reactive Protein Serum Total Protein Total Protein Albumin Prealbumin Vkjjn-0-Zrkuddixm Ehjpq-4-Lyustpuce Gamma Globulins PEP Interpretation Triglycerides Urine pH Urine Creatinine Urine Total Protein Vancomycin Trough Digoxin Crossmatch See Detail 10/16/19 10/16/19 10/16/19 15:23 17:50 23:58 WBC RBC Hgb Hct MCHC RDW Plt Count Lymph % (Auto) [place] % (Auto) Lymph # [place] # Seg Neutrophils % Seg Neuts % (Manual) Lymphocytes % (Manual) Seg Neutrophils # Seg Neutrophils # Man Lymphocytes # (Manual) Monocytes # (Manual) POC ABG pH ABG pH POC ABG pCO2 POC ABG pO2 ABG pO2 ABG HCO3 ABG Base Excess ABG Hemoglobin Oxyhemoglobin Sodium Potassium Chloride Carbon Dioxide BUN Creatinine Glucose POC Glucose 221 H 201 H 179 H Calcium Phosphorus Magnesium Direct Bilirubin AST Alkaline Phosphatase C-Reactive Protein Serum Total Protein Total Protein Albumin Prealbumin Kfkmv-0-Ebldtlafs Bmwbs-5-Bxnxlhkbi Gamma Globulins PEP Interpretation Triglycerides Urine pH Urine Creatinine Urine Total Protein Vancomycin Trough Digoxin Crossmatch 10/17/19 10/17/19 10/17/19 04:08 04:08 05:41 WBC 22.3 H RBC 3.35 L Hgb 10.0 L Hct 31.2 L D MCHC RDW 16.1 H Plt Count Lymph % (Auto) [place] % (Auto) Lymph # [place] # Seg Neutrophils % Seg Neuts % (Manual) Lymphocytes % (Manual) Seg Neutrophils # Seg Neutrophils # Man Lymphocytes # (Manual) Monocytes # (Manual) POC ABG pH 7.310 L ABG pH POC ABG pCO2 52.8 H POC ABG pO2 70 L ABG pO2 ABG HCO3 ABG Base Excess ABG Hemoglobin Oxyhemoglobin Sodium 147 H Potassium Chloride 114.9 H Carbon Dioxide BUN 36 H Creatinine Glucose 165 H POC Glucose Calcium 6.9 L Phosphorus 2.20 L D Magnesium Direct Bilirubin AST Alkaline Phosphatase C-Reactive Protein Serum Total Protein Total Protein Albumin Prealbumin Duhec-5-Ymdwagjxr Qthtf-2-Xmdjwdwdn Gamma Globulins PEP Interpretation Triglycerides Urine pH Urine Creatinine Urine Total Protein Vancomycin Trough Digoxin Crossmatch 10/17/19 10/17/19 10/17/19 05:42 11:33 18:17 WBC RBC Hgb Hct MCHC RDW Plt Count Lymph % (Auto) [place] % (Auto) Lymph # [place] # Seg Neutrophils % Seg Neuts % (Manual) Lymphocytes % (Manual) Seg Neutrophils # Seg Neutrophils # Man Lymphocytes # (Manual) Monocytes # (Manual) POC ABG pH ABG pH POC ABG pCO2 POC ABG pO2 ABG pO2 ABG HCO3 ABG Base Excess ABG Hemoglobin Oxyhemoglobin Sodium Potassium Chloride Carbon Dioxide BUN Creatinine Glucose POC Glucose 149 H 154 H 163 H Calcium Phosphorus Magnesium Direct Bilirubin AST Alkaline Phosphatase C-Reactive Protein Serum Total Protein Total Protein Albumin Prealbumin Jchpf-9-Dpnaqiyhk Kqbmk-1-Hqoqzqdmr Gamma Globulins PEP Interpretation Triglycerides Urine pH Urine Creatinine Urine Total Protein Vancomycin Trough Digoxin Crossmatch 10/17/19 10/18/19 10/18/19 23:34 03:29 04:50 WBC RBC Hgb Hct MCHC RDW Plt Count Lymph % (Auto) [place] % (Auto) Lymph # [place] # Seg Neutrophils % Seg Neuts % (Manual) Lymphocytes % (Manual) Seg Neutrophils # Seg Neutrophils # Man Lymphocytes # (Manual) Monocytes # (Manual) POC ABG pH ABG pH POC ABG pCO2 POC ABG pO2 ABG pO2 78.8 L ABG HCO3 ABG Base Excess ABG Hemoglobin 8.8 L Oxyhemoglobin Sodium Potassium Chloride 111.8 H Carbon Dioxide BUN 27 H Creatinine 0.6 L Glucose 140 H POC Glucose 135 H Calcium 7.1 L Phosphorus 1.80 L Magnesium Direct Bilirubin AST Alkaline Phosphatase C-Reactive Protein Serum Total Protein Total Protein Albumin Prealbumin Zoero-6-Baaqakpsr Izpvs-0-Vtommlynu Gamma Globulins PEP Interpretation Triglycerides Urine pH Urine Creatinine Urine Total Protein Vancomycin Trough Digoxin Crossmatch 10/18/19 10/18/19 10/18/19 05:45 11:19 18:26 WBC RBC Hgb Hct MCHC RDW Plt Count Lymph % (Auto) [place] % (Auto) Lymph # [place] # Seg Neutrophils % Seg Neuts % (Manual) Lymphocytes % (Manual) Seg Neutrophils # Seg Neutrophils # Man Lymphocytes # (Manual) Monocytes # (Manual) POC ABG pH ABG pH POC ABG pCO2 POC ABG pO2 ABG pO2 ABG HCO3 ABG Base Excess ABG Hemoglobin Oxyhemoglobin Sodium Potassium Chloride Carbon Dioxide BUN Creatinine Glucose POC Glucose 145 H 152 H 125 H Calcium Phosphorus Magnesium Direct Bilirubin AST Alkaline Phosphatase C-Reactive Protein Serum Total Protein Total Protein Albumin Prealbumin Jgcqe-3-Bavjhrfsk Pdazi-6-Vnugtwjds Gamma Globulins PEP Interpretation Triglycerides Urine pH Urine Creatinine Urine Total Protein Vancomycin Trough Digoxin Crossmatch 10/18/19 10/19/19 10/19/19 23:27 04:21 04:21 WBC RBC Hgb Hct MCHC RDW Plt Count Lymph % (Auto) [place] % (Auto) Lymph # [place] # Seg Neutrophils % Seg Neuts % (Manual) Lymphocytes % (Manual) Seg Neutrophils # Seg Neutrophils # Man Lymphocytes # (Manual) Monocytes # (Manual) POC ABG pH ABG pH POC ABG pCO2 POC ABG pO2 ABG pO2 ABG HCO3 ABG Base Excess ABG Hemoglobin Oxyhemoglobin Sodium Potassium Chloride 108.4 H Carbon Dioxide BUN 22 H Creatinine 0.5 L Glucose 123 H POC Glucose 127 H Calcium 7.4 L Phosphorus 1.80 L Magnesium Direct Bilirubin AST Alkaline Phosphatase C-Reactive Protein Serum Total Protein Total Protein Albumin Prealbumin Beecm-7-Rtngflcrw Kprps-7-Zhnbjeoui Gamma Globulins PEP Interpretation Triglycerides Urine pH Urine Creatinine Urine Total Protein Vancomycin Trough Digoxin 0.7 L Crossmatch 10/19/19 10/19/19 10/19/19 05:00 05:35 11:26 WBC RBC Hgb Hct MCHC RDW Plt Count Lymph % (Auto) [place] % (Auto) Lymph # [place] # Seg Neutrophils % Seg Neuts % (Manual) Lymphocytes % (Manual) Seg Neutrophils # Seg Neutrophils # Man Lymphocytes # (Manual) Monocytes # (Manual) POC ABG pH ABG pH 7.456 H POC ABG pCO2 POC ABG pO2 ABG pO2 78.8 L ABG HCO3 ABG Base Excess ABG Hemoglobin 5.6 L Oxyhemoglobin Sodium Potassium Chloride Carbon Dioxide BUN Creatinine Glucose POC Glucose 124 H 111 H Calcium Phosphorus Magnesium Direct Bilirubin AST Alkaline Phosphatase C-Reactive Protein Serum Total Protein Total Protein Albumin Prealbumin Kgzcq-7-Ahohapbcb Mlhso-8-Daajgllfp Gamma Globulins PEP Interpretation Triglycerides Urine pH Urine Creatinine Urine Total Protein Vancomycin Trough Digoxin Crossmatch 10/19/19 10/20/19 10/20/19 23:23 04:50 05:17 WBC RBC Hgb Hct MCHC RDW Plt Count Lymph % (Auto) [place] % (Auto) Lymph # [place] # Seg Neutrophils % Seg Neuts % (Manual) Lymphocytes % (Manual) Seg Neutrophils # Seg Neutrophils # Man Lymphocytes # (Manual) Monocytes # (Manual) POC ABG pH ABG pH POC ABG pCO2 POC ABG pO2 ABG pO2 ABG HCO3 ABG Base Excess ABG Hemoglobin Oxyhemoglobin Sodium Potassium Chloride 108.1 H Carbon Dioxide BUN Creatinine 0.4 L Glucose 134 H POC Glucose 129 H 123 H Calcium 7.1 L Phosphorus Magnesium Direct Bilirubin AST Alkaline Phosphatase C-Reactive Protein Serum Total Protein Total Protein Albumin Prealbumin Auhot-4-Lhfgosyrp Azsim-1-Ptuygeesz Gamma Globulins PEP Interpretation Triglycerides Urine pH Urine Creatinine Urine Total Protein Vancomycin Trough Digoxin Crossmatch 10/20/19 10/20/19 10/21/19 11:40 19:06 05:08 WBC RBC Hgb Hct MCHC RDW Plt Count Lymph % (Auto) [place] % (Auto) Lymph # [place] # Seg Neutrophils % Seg Neuts % (Manual) Lymphocytes % (Manual) Seg Neutrophils # Seg Neutrophils # Man Lymphocytes # (Manual) Monocytes # (Manual) POC ABG pH ABG pH POC ABG pCO2 POC ABG pO2 ABG pO2 ABG HCO3 ABG Base Excess ABG Hemoglobin Oxyhemoglobin Sodium Potassium Chloride Carbon Dioxide BUN Creatinine Glucose POC Glucose 139 H 117 H 131 H Calcium Phosphorus Magnesium Direct Bilirubin AST Alkaline Phosphatase C-Reactive Protein Serum Total Protein Total Protein Albumin Prealbumin Dayzp-4-Gzzfalajf Rxszi-3-Yxzmuubcj Gamma Globulins PEP Interpretation Triglycerides Urine pH Urine Creatinine Urine Total Protein Vancomycin Trough Digoxin Crossmatch 10/21/19 10/21/19 10/21/19 05:30 12:04 17:31 WBC RBC Hgb Hct MCHC RDW Plt Count Lymph % (Auto) [place] % (Auto) Lymph # [place] # Seg Neutrophils % Seg Neuts % (Manual) Lymphocytes % (Manual) Seg Neutrophils # Seg Neutrophils # Man Lymphocytes # (Manual) Monocytes # (Manual) POC ABG pH ABG pH POC ABG pCO2 POC ABG pO2 ABG pO2 ABG HCO3 ABG Base Excess ABG Hemoglobin Oxyhemoglobin Sodium Potassium Chloride 107.8 H Carbon Dioxide BUN Creatinine 0.5 L Glucose 119 H POC Glucose 119 H 110 H Calcium 7.6 L Phosphorus Magnesium Direct Bilirubin AST Alkaline Phosphatase C-Reactive Protein Serum Total Protein Total Protein Albumin Prealbumin Arrxd-6-Mgxdvgcjl Gtpkf-7-Taxqgtzxx Gamma Globulins PEP Interpretation Triglycerides Urine pH Urine Creatinine Urine Total Protein Vancomycin Trough Digoxin Crossmatch 10/22/19 10/22/19 10/22/19 05:14 05:37 12:07 WBC RBC Hgb Hct MCHC RDW Plt Count Lymph % (Auto) [place] % (Auto) Lymph # [place] # Seg Neutrophils % Seg Neuts % (Manual) Lymphocytes % (Manual) Seg Neutrophils # Seg Neutrophils # Man Lymphocytes # (Manual) Monocytes # (Manual) POC ABG pH ABG pH POC ABG pCO2 POC ABG pO2 ABG pO2 ABG HCO3 ABG Base Excess ABG Hemoglobin Oxyhemoglobin Sodium Potassium Chloride Carbon Dioxide BUN Creatinine 0.5 L Glucose 116 H POC Glucose 110 H 126 H Calcium 7.7 L Phosphorus Magnesium Direct Bilirubin AST Alkaline Phosphatase C-Reactive Protein Serum Total Protein Total Protein Albumin Prealbumin Zfvzi-7-Qknmymutx Usyzx-3-Zzqacwaob Gamma Globulins PEP Interpretation Triglycerides Urine pH Urine Creatinine Urine Total Protein Vancomycin Trough Digoxin Crossmatch 10/22/19 10/22/19 10/23/19 18:36 23:19 04:39 WBC RBC Hgb Hct MCHC RDW Plt Count Lymph % (Auto) [place] % (Auto) Lymph # [place] # Seg Neutrophils % Seg Neuts % (Manual) Lymphocytes % (Manual) Seg Neutrophils # Seg Neutrophils # Man Lymphocytes # (Manual) Monocytes # (Manual) POC ABG pH ABG pH POC ABG pCO2 POC ABG pO2 ABG pO2 ABG HCO3 ABG Base Excess ABG Hemoglobin Oxyhemoglobin Sodium Potassium Chloride Carbon Dioxide BUN Creatinine Glucose POC Glucose 120 H 127 H 112 H Calcium Phosphorus Magnesium Direct Bilirubin AST Alkaline Phosphatase C-Reactive Protein Serum Total Protein Total Protein Albumin Prealbumin Mjbnd-9-Bahesfrfu Mtksn-5-Zjyjedhet Gamma Globulins PEP Interpretation Triglycerides Urine pH Urine Creatinine Urine Total Protein Vancomycin Trough Digoxin Crossmatch 10/23/19 10/23/19 10/23/19 04:47 05:15 10:44 WBC 18.3 H RBC 2.33 L Hgb 7.0 L Hct 21.5 L MCHC RDW 16.2 H Plt Count Lymph % (Auto) 4.9 L [place] % (Auto) 8.1 H Lymph # 0.9 L [place] # 1.5 H Seg Neutrophils % 86.7 H Seg Neuts % (Manual) Lymphocytes % (Manual) Seg Neutrophils # 15.9 H Seg Neutrophils # Man Lymphocytes # (Manual) Monocytes # (Manual) POC ABG pH ABG pH POC ABG pCO2 POC ABG pO2 ABG pO2 68.9 L ABG HCO3 28.7 H ABG Base Excess 3.4 H ABG Hemoglobin 6.6 L Oxyhemoglobin 94.1 L Sodium Potassium Chloride Carbon Dioxide BUN Creatinine 0.5 L Glucose 165 H POC Glucose Calcium 7.4 L Phosphorus Magnesium Direct Bilirubin AST Alkaline Phosphatase C-Reactive Protein Serum Total Protein Total Protein Albumin Prealbumin Xwvix-2-Uognfteyw Cgmmx-9-Kvqhnnxft Gamma Globulins PEP Interpretation Triglycerides Urine pH Urine Creatinine Urine Total Protein Vancomycin Trough Digoxin Crossmatch 10/23/19 10/23/19 10/23/19 10:44 11:46 11:50 WBC RBC Hgb Hct MCHC RDW Plt Count Lymph % (Auto) [place] % (Auto) Lymph # [place] # Seg Neutrophils % Seg Neuts % (Manual) Lymphocytes % (Manual) Seg Neutrophils # Seg Neutrophils # Man Lymphocytes # (Manual) Monocytes # (Manual) POC ABG pH ABG pH POC ABG pCO2 POC ABG pO2 ABG pO2 ABG HCO3 ABG Base Excess ABG Hemoglobin Oxyhemoglobin Sodium Potassium Chloride Carbon Dioxide BUN Creatinine Glucose POC Glucose 138 H Calcium Phosphorus Magnesium Direct Bilirubin 0.7 H AST Alkaline Phosphatase C-Reactive Protein Serum Total Protein Total Protein 4.5 L Albumin 1.2 L Prealbumin Ubljr-1-Phmnfvhhm Tngul-5-Egkelllmo Gamma Globulins PEP Interpretation Triglycerides Urine pH Urine Creatinine Urine Total Protein Vancomycin Trough Digoxin Crossmatch See Detail 10/23/19 10/24/19 10/24/19 17:53 00:07 05:05 WBC RBC Hgb Hct MCHC RDW Plt Count Lymph % (Auto) [place] % (Auto) Lymph # [place] # Seg Neutrophils % Seg Neuts % (Manual) Lymphocytes % (Manual) Seg Neutrophils # Seg Neutrophils # Man Lymphocytes # (Manual) Monocytes # (Manual) POC ABG pH ABG pH POC ABG pCO2 POC ABG pO2 ABG pO2 ABG HCO3 ABG Base Excess ABG Hemoglobin Oxyhemoglobin Sodium Potassium 3.5 L Chloride Carbon Dioxide BUN Creatinine 0.5 L Glucose 116 H POC Glucose 137 H 110 H Calcium 8.0 L Phosphorus Magnesium Direct Bilirubin AST Alkaline Phosphatase C-Reactive Protein Serum Total Protein Total Protein Albumin Prealbumin Ieesx-6-Oxfqvpxhg Izgkh-1-Hgqdfqzai Gamma Globulins PEP Interpretation Triglycerides Urine pH Urine Creatinine Urine Total Protein Vancomycin Trough Digoxin Crossmatch 10/24/19 10/24/19 10/24/19 05:05 11:56 13:00 WBC 13.0 H RBC 2.73 L Hgb 8.0 L Hct 24.2 L MCHC RDW 17.9 H Plt Count Lymph % (Auto) 7.0 L [place] % (Auto) 9.5 H Lymph # 0.9 L [place] # 1.2 H Seg Neutrophils % 82.7 H Seg Neuts % (Manual) Lymphocytes % (Manual) Seg Neutrophils # 10.7 H Seg Neutrophils # Man Lymphocytes # (Manual) Monocytes # (Manual) POC ABG pH ABG pH POC ABG pCO2 POC ABG pO2 ABG pO2 ABG HCO3 ABG Base Excess ABG Hemoglobin Oxyhemoglobin Sodium Potassium Chloride Carbon Dioxide BUN Creatinine Glucose POC Glucose 159 H Calcium Phosphorus Magnesium Direct Bilirubin AST Alkaline Phosphatase C-Reactive Protein Serum Total Protein Total Protein Albumin Prealbumin Tsdzl-7-Ndcejpxvh Tlzya-2-Hebimrvlf Gamma Globulins PEP Interpretation Triglycerides 216 H Urine pH Urine Creatinine Urine Total Protein Vancomycin Trough Digoxin Crossmatch 10/24/19 10/24/19 10/25/19 17:42 23:45 04:19 WBC RBC Hgb Hct MCHC RDW Plt Count Lymph % (Auto) [place] % (Auto) Lymph # [place] # Seg Neutrophils % Seg Neuts % (Manual) Lymphocytes % (Manual) Seg Neutrophils # Seg Neutrophils # Man Lymphocytes # (Manual) Monocytes # (Manual) POC ABG pH ABG pH POC ABG pCO2 POC ABG pO2 ABG pO2 ABG HCO3 ABG Base Excess ABG Hemoglobin Oxyhemoglobin Sodium 147 H Potassium Chloride Carbon Dioxide 33 H BUN Creatinine 0.5 L Glucose 111 H POC Glucose 120 H 116 H Calcium Phosphorus Magnesium Direct Bilirubin AST Alkaline Phosphatase C-Reactive Protein Serum Total Protein Total Protein 5.7 L D Albumin 2.5 L Prealbumin Zrjdf-2-Pjxcgwqun Cqjcl-2-Xfdyvsakl Gamma Globulins PEP Interpretation Triglycerides 230 H Urine pH Urine Creatinine Urine Total Protein Vancomycin Trough Digoxin Crossmatch 10/25/19 10/25/19 10/25/19 04:19 05:31 12:20 WBC RBC 2.69 L Hgb 8.1 L Hct 23.9 L MCHC RDW 17.3 H Plt Count Lymph % (Auto) [place] % (Auto) Lymph # [place] # Seg Neutrophils % Seg Neuts % (Manual) Lymphocytes % (Manual) Seg Neutrophils # Seg Neutrophils # Man Lymphocytes # (Manual) Monocytes # (Manual) POC ABG pH ABG pH POC ABG pCO2 POC ABG pO2 ABG pO2 ABG HCO3 ABG Base Excess ABG Hemoglobin Oxyhemoglobin Sodium Potassium Chloride Carbon Dioxide BUN Creatinine Glucose POC Glucose 126 H 114 H Calcium Phosphorus Magnesium Direct Bilirubin AST Alkaline Phosphatase C-Reactive Protein Serum Total Protein Total Protein Albumin Prealbumin Jpgio-7-Gnzebsbzx Mffnf-3-Pwhqoikld Gamma Globulins PEP Interpretation Triglycerides Urine pH Urine Creatinine Urine Total Protein Vancomycin Trough Digoxin Crossmatch 10/25/19 10/25/19 10/26/19 18:30 23:09 06:15 WBC RBC Hgb Hct MCHC RDW Plt Count Lymph % (Auto) [place] % (Auto) Lymph # [place] # Seg Neutrophils % Seg Neuts % (Manual) Lymphocytes % (Manual) Seg Neutrophils # Seg Neutrophils # Man Lymphocytes # (Manual) Monocytes # (Manual) POC ABG pH ABG pH POC ABG pCO2 POC ABG pO2 ABG pO2 ABG HCO3 ABG Base Excess ABG Hemoglobin Oxyhemoglobin Sodium Potassium 3.5 L Chloride Carbon Dioxide BUN Creatinine 0.5 L Glucose 112 H POC Glucose 121 H 107 H Calcium 8.3 L Phosphorus Magnesium Direct Bilirubin AST Alkaline Phosphatase 148 H C-Reactive Protein Serum Total Protein Total Protein 5.9 L Albumin 2.4 L Prealbumin Cwfvq-0-Vsvilgkmz Vqbyd-3-Zhsudvxzn Gamma Globulins PEP Interpretation Triglycerides Urine pH Urine Creatinine Urine Total Protein Vancomycin Trough Digoxin Crossmatch 10/26/19 10/26/19 10/26/19 06:15 12:21 17:35 WBC RBC Hgb Hct MCHC RDW Plt Count Lymph % (Auto) [place] % (Auto) Lymph # [place] # Seg Neutrophils % Seg Neuts % (Manual) Lymphocytes % (Manual) Seg Neutrophils # Seg Neutrophils # Man Lymphocytes # (Manual) Monocytes # (Manual) POC ABG pH ABG pH POC ABG pCO2 POC ABG pO2 ABG pO2 ABG HCO3 ABG Base Excess ABG Hemoglobin Oxyhemoglobin Sodium Potassium Chloride Carbon Dioxide BUN Creatinine Glucose POC Glucose 134 H 141 H Calcium Phosphorus Magnesium Direct Bilirubin AST Alkaline Phosphatase C-Reactive Protein Serum Total Protein Total Protein Albumin Prealbumin Bilbr-1-Ldfmxjmda Klaea-4-Uldimlopb Gamma Globulins PEP Interpretation Triglycerides 185 H Urine pH Urine Creatinine Urine Total Protein Vancomycin Trough Digoxin Crossmatch 10/26/19 10/27/19 10/27/19 Unknown 04:30 11:33 WBC RBC Hgb Hct MCHC RDW Plt Count Lymph % (Auto) [place] % (Auto) Lymph # [place] # Seg Neutrophils % Seg Neuts % (Manual) Lymphocytes % (Manual) Seg Neutrophils # Seg Neutrophils # Man Lymphocytes # (Manual) Monocytes # (Manual) POC ABG pH ABG pH POC ABG pCO2 POC ABG pO2 ABG pO2 ABG HCO3 ABG Base Excess ABG Hemoglobin Oxyhemoglobin Sodium Potassium 3.2 L Chloride Carbon Dioxide BUN 23 H Creatinine 0.6 L Glucose 130 H POC Glucose 131 H Calcium 7.9 L Phosphorus Magnesium Direct Bilirubin AST Alkaline Phosphatase C-Reactive Protein Serum Total Protein Total Protein Albumin Prealbumin Ebpmk-8-Uxtmmrgmo Ojkha-3-Zefdrmhpt Gamma Globulins PEP Interpretation Triglycerides Urine pH 9.0 H Urine Creatinine Urine Total Protein Vancomycin Trough Digoxin Crossmatch 10/27/19 10/28/19 10/28/19 17:45 05:25 05:49 WBC RBC 2.85 L Hgb 8.3 L Hct 26.8 L MCHC 31 L RDW 17.4 H Plt Count Lymph % (Auto) 8.9 L [place] % (Auto) 14.3 H Lymph # 0.8 L [place] # 1.3 H Seg Neutrophils % 76.5 H Seg Neuts % (Manual) Lymphocytes % (Manual) Seg Neutrophils # Seg Neutrophils # Man Lymphocytes # (Manual) Monocytes # (Manual) POC ABG pH ABG pH POC ABG pCO2 POC ABG pO2 ABG pO2 ABG HCO3 ABG Base Excess ABG Hemoglobin Oxyhemoglobin Sodium Potassium Chloride Carbon Dioxide BUN Creatinine Glucose POC Glucose 121 H 120 H Calcium Phosphorus Magnesium Direct Bilirubin AST Alkaline Phosphatase C-Reactive Protein Serum Total Protein Total Protein Albumin Prealbumin Juixn-0-Rkvtynkvc Tzbvl-3-Wuiqrenho Gamma Globulins PEP Interpretation Triglycerides Urine pH Urine Creatinine Urine Total Protein Vancomycin Trough Digoxin Crossmatch 10/28/19 10/28/19 10/28/19 07:19 12:07 18:21 WBC RBC Hgb Hct MCHC RDW Plt Count Lymph % (Auto) [place] % (Auto) Lymph # [place] # Seg Neutrophils % Seg Neuts % (Manual) Lymphocytes % (Manual) Seg Neutrophils # Seg Neutrophils # Man Lymphocytes # (Manual) Monocytes # (Manual) POC ABG pH ABG pH POC ABG pCO2 POC ABG pO2 ABG pO2 ABG HCO3 ABG Base Excess ABG Hemoglobin Oxyhemoglobin Sodium Potassium Chloride Carbon Dioxide BUN 23 H Creatinine 0.5 L Glucose 129 H POC Glucose 127 H 130 H Calcium 8.0 L Phosphorus Magnesium Direct Bilirubin AST Alkaline Phosphatase C-Reactive Protein Serum Total Protein Total Protein Albumin Prealbumin Xjhbr-8-Azugtoqmk Vtcas-7-Axmrpxvnn Gamma Globulins PEP Interpretation Triglycerides Urine pH Urine Creatinine Urine Total Protein Vancomycin Trough Digoxin Crossmatch 10/28/19 10/29/19 10/29/19 23:30 05:30 05:30 WBC 11.2 H RBC 3.36 L Hgb 9.7 L Hct 29.4 L MCHC RDW 16.7 H Plt Count Lymph % (Auto) [place] % (Auto) 16.0 H Lymph # [place] # 1.8 H Seg Neutrophils % 70.2 H Seg Neuts % (Manual) Lymphocytes % (Manual) Seg Neutrophils # 7.9 H Seg Neutrophils # Man Lymphocytes # (Manual) Monocytes # (Manual) POC ABG pH ABG pH POC ABG pCO2 POC ABG pO2 ABG pO2 ABG HCO3 ABG Base Excess ABG Hemoglobin Oxyhemoglobin Sodium Potassium Chloride Carbon Dioxide BUN 23 H Creatinine 0.5 L Glucose POC Glucose 130 H Calcium 8.3 L Phosphorus Magnesium Direct Bilirubin AST Alkaline Phosphatase C-Reactive Protein Serum Total Protein Total Protein Albumin Prealbumin Bcqgu-1-Kwjebuxhu Uzufw-5-Dmduugact Gamma Globulins PEP Interpretation Triglycerides Urine pH Urine Creatinine Urine Total Protein Vancomycin Trough Digoxin Crossmatch 10/29/19 10/29/19 10/29/19 05:52 13:10 18:02 WBC RBC Hgb Hct MCHC RDW Plt Count Lymph % (Auto) [place] % (Auto) Lymph # [place] # Seg Neutrophils % Seg Neuts % (Manual) Lymphocytes % (Manual) Seg Neutrophils # Seg Neutrophils # Man Lymphocytes # (Manual) Monocytes # (Manual) POC ABG pH ABG pH POC ABG pCO2 POC ABG pO2 ABG pO2 ABG HCO3 ABG Base Excess ABG Hemoglobin Oxyhemoglobin Sodium Potassium Chloride Carbon Dioxide BUN Creatinine Glucose POC Glucose 111 H 140 H 140 H Calcium Phosphorus Magnesium Direct Bilirubin AST Alkaline Phosphatase C-Reactive Protein Serum Total Protein Total Protein Albumin Prealbumin Bfowk-6-Xuwvykgiu Zmsff-2-Ubxboyqew Gamma Globulins PEP Interpretation Triglycerides Urine pH Urine Creatinine Urine Total Protein Vancomycin Trough Digoxin Crossmatch 10/29/19 10/30/19 10/30/19 23:58 01:05 05:15 WBC RBC Hgb Hct MCHC RDW Plt Count Lymph % (Auto) [place] % (Auto) Lymph # [place] # Seg Neutrophils % Seg Neuts % (Manual) Lymphocytes % (Manual) Seg Neutrophils # Seg Neutrophils # Man Lymphocytes # (Manual) Monocytes # (Manual) POC ABG pH ABG pH POC ABG pCO2 62.0 H POC ABG pO2 168 H ABG pO2 ABG HCO3 ABG Base Excess ABG Hemoglobin Oxyhemoglobin Sodium 147 H Potassium Chloride 107.8 H Carbon Dioxide BUN 26 H Creatinine 0.5 L Glucose 139 H POC Glucose 161 H Calcium Phosphorus Magnesium 2.40 H Direct Bilirubin AST Alkaline Phosphatase C-Reactive Protein Serum Total Protein Total Protein Albumin Prealbumin Rltqf-3-Ndipewufm Micdj-3-Gwwxrceyp Gamma Globulins PEP Interpretation Triglycerides Urine pH Urine Creatinine Urine Total Protein Vancomycin Trough Digoxin Crossmatch 10/30/19 10/30/19 10/30/19 05:15 06:32 09:44 WBC 13.8 H RBC 3.59 L Hgb 10.1 L Hct 32.4 L MCHC 31 L RDW 17.4 H Plt Count Lymph % (Auto) 11.2 L [place] % (Auto) 13.6 H Lymph # [place] # 1.9 H Seg Neutrophils % 75.1 H Seg Neuts % (Manual) Lymphocytes % (Manual) Seg Neutrophils # 10.4 H Seg Neutrophils # Man Lymphocytes # (Manual) Monocytes # (Manual) POC ABG pH ABG pH POC ABG pCO2 51.7 H POC ABG pO2 111 H ABG pO2 ABG HCO3 ABG Base Excess ABG Hemoglobin Oxyhemoglobin Sodium Potassium Chloride Carbon Dioxide BUN Creatinine Glucose POC Glucose 141 H Calcium Phosphorus Magnesium Direct Bilirubin AST Alkaline Phosphatase C-Reactive Protein Serum Total Protein Total Protein Albumin Prealbumin Onikq-1-Zvyhszaem Ducge-4-Dwnjdkcow Gamma Globulins PEP Interpretation Triglycerides Urine pH Urine Creatinine Urine Total Protein Vancomycin Trough Digoxin Crossmatch 10/30/19 10/31/19 10/31/19 18:10 04:18 04:18 WBC 11.7 H RBC 3.11 L Hgb 9.0 L Hct 27.9 L MCHC RDW 17.1 H Plt Count Lymph % (Auto) [place] % (Auto) Lymph # [place] # Seg Neutrophils % Seg Neuts % (Manual) Lymphocytes % (Manual) Seg Neutrophils # Seg Neutrophils # Man Lymphocytes # (Manual) Monocytes # (Manual) POC ABG pH ABG pH POC ABG pCO2 POC ABG pO2 ABG pO2 ABG HCO3 ABG Base Excess ABG Hemoglobin Oxyhemoglobin Sodium 148 H Potassium Chloride 108.7 H Carbon Dioxide BUN 37 H Creatinine 0.7 L Glucose 102 H POC Glucose 131 H Calcium Phosphorus Magnesium Direct Bilirubin AST Alkaline Phosphatase C-Reactive Protein Serum Total Protein Total Protein Albumin Prealbumin Xivdw-2-Jjdrfxlwh Shcea-0-Fydudgnua Gamma Globulins PEP Interpretation Triglycerides Urine pH Urine Creatinine Urine Total Protein Vancomycin Trough Digoxin Crossmatch 10/31/19 10/31/19 10/31/19 11:32 12:55 18:10 WBC RBC Hgb Hct MCHC RDW Plt Count Lymph % (Auto) [place] % (Auto) Lymph # [place] # Seg Neutrophils % Seg Neuts % (Manual) Lymphocytes % (Manual) Seg Neutrophils # Seg Neutrophils # Man Lymphocytes # (Manual) Monocytes # (Manual) POC ABG pH ABG pH POC ABG pCO2 57.9 H POC ABG pO2 135 H ABG pO2 ABG HCO3 ABG Base Excess ABG Hemoglobin Oxyhemoglobin Sodium Potassium Chloride Carbon Dioxide BUN Creatinine Glucose POC Glucose 120 H Calcium Phosphorus Magnesium Direct Bilirubin AST Alkaline Phosphatase C-Reactive Protein Serum Total Protein Total Protein Albumin Prealbumin Kwmlf-5-Schdzthpa [place]alma-6-Drlrveyas Gamma Globulins PEP Interpretation Triglycerides Urine pH Urine Creatinine Urine Total Protein Vancomycin Trough 41.7 H Digoxin Crossmatch 10/31/19 11/01/19 11/01/19 23:08 05:30 05:30 WBC 14.6 H RBC 3.13 L Hgb 8.9 L Hct 27.7 L MCHC RDW 17.0 H Plt Count Lymph % (Auto) [place] % (Auto) Lymph # [place] # Seg Neutrophils % Seg Neuts % (Manual) Lymphocytes % (Manual) Seg Neutrophils # Seg Neutrophils # Man Lymphocytes # (Manual) Monocytes # (Manual) POC ABG pH ABG pH POC ABG pCO2 POC ABG pO2 ABG pO2 ABG HCO3 ABG Base Excess ABG Hemoglobin Oxyhemoglobin Sodium 149 H Potassium Chloride 109.0 H Carbon Dioxide BUN 26 H Creatinine 0.7 L Glucose 129 H POC Glucose 109 H Calcium Phosphorus Magnesium Direct Bilirubin AST Alkaline Phosphatase C-Reactive Protein Serum Total Protein Total Protein Albumin Prealbumin Wwznr-4-Tgmswsymy Xwswh-4-Wgkouyaiu Gamma Globulins PEP Interpretation Triglycerides Urine pH Urine Creatinine Urine Total Protein Vancomycin Trough Digoxin Crossmatch 11/01/19 11/01/19 11/01/19 06:09 06:10 11:52 WBC RBC Hgb Hct MCHC RDW Plt Count Lymph % (Auto) [place] % (Auto) Lymph # [place] # Seg Neutrophils % Seg Neuts % (Manual) Lymphocytes % (Manual) Seg Neutrophils # Seg Neutrophils # Man Lymphocytes # (Manual) Monocytes # (Manual) POC ABG pH ABG pH POC ABG pCO2 51.3 H POC ABG pO2 71 L ABG pO2 ABG HCO3 ABG Base Excess ABG Hemoglobin Oxyhemoglobin Sodium Potassium Chloride Carbon Dioxide BUN Creatinine Glucose POC Glucose 113 H 106 H Calcium Phosphorus Magnesium Direct Bilirubin AST Alkaline Phosphatase C-Reactive Protein Serum Total Protein Total Protein Albumin Prealbumin Cofnb-9-Nfwihihwp Kxcpa-3-Inhjfdamh Gamma Globulins PEP Interpretation Triglycerides Urine pH Urine Creatinine Urine Total Protein Vancomycin Trough Digoxin Crossmatch 11/01/19 11/02/19 11/02/19 18:18 03:40 03:40 WBC RBC 2.36 L Hgb 7.2 L Hct 20.8 L D MCHC 35 H RDW 16.8 H Plt Count Lymph % (Auto) [place] % (Auto) Lymph # [place] # Seg Neutrophils % Seg Neuts % (Manual) Lymphocytes % (Manual) Seg Neutrophils # Seg Neutrophils # Man Lymphocytes # (Manual) Monocytes # (Manual) POC ABG pH ABG pH POC ABG pCO2 POC ABG pO2 ABG pO2 ABG HCO3 ABG Base Excess ABG Hemoglobin Oxyhemoglobin Sodium 157 H D Potassium 3.0 L D Chloride 117.2 H Carbon Dioxide BUN 23 H Creatinine 0.6 L Glucose 101 H POC Glucose 120 H Calcium 6.4 L D Phosphorus Magnesium Direct Bilirubin AST Alkaline Phosphatase C-Reactive Protein Serum Total Protein Total Protein Albumin Prealbumin Toeov-2-Snfeceemu Hvphz-5-Xensgpqjf Gamma Globulins PEP Interpretation Triglycerides Urine pH Urine Creatinine Urine Total Protein Vancomycin Trough Digoxin Crossmatch 11/02/19 11/02/19 11/02/19 04:48 05:30 12:43 WBC RBC Hgb Hct MCHC RDW Plt Count Lymph % (Auto) [place] % (Auto) Lymph # [place] # Seg Neutrophils % Seg Neuts % (Manual) Lymphocytes % (Manual) Seg Neutrophils # Seg Neutrophils # Man Lymphocytes # (Manual) Monocytes # (Manual) POC ABG pH ABG pH POC ABG pCO2 50.1 H POC ABG pO2 74 L ABG pO2 ABG HCO3 ABG Base Excess ABG Hemoglobin Oxyhemoglobin Sodium 149 H D Potassium Chloride 110.0 H Carbon Dioxide BUN 23 H Creatinine 0.6 L Glucose POC Glucose 109 H Calcium 8.1 L D Phosphorus Magnesium 2.40 H Direct Bilirubin AST Alkaline Phosphatase C-Reactive Protein Serum Total Protein Total Protein Albumin Prealbumin Utjfg-6-Zufyyqruy Gifrb-0-Utrrrbmub Gamma Globulins PEP Interpretation Triglycerides Urine pH Urine Creatinine Urine Total Protein Vancomycin Trough Digoxin Crossmatch 11/03/19 11/03/19 11/03/19 03:42 03:42 04:13 WBC RBC 2.93 L Hgb 8.5 L Hct 25.8 L MCHC RDW 16.9 H Plt Count Lymph % (Auto) [place] % (Auto) Lymph # [place] # Seg Neutrophils % Seg Neuts % (Manual) Lymphocytes % (Manual) Seg Neutrophils # Seg Neutrophils # Man Lymphocytes # (Manual) Monocytes # (Manual) POC ABG pH 7.540 H ABG pH POC ABG pCO2 POC ABG pO2 51 L ABG pO2 ABG HCO3 ABG Base Excess ABG Hemoglobin Oxyhemoglobin Sodium 147 H Potassium 3.5 L D Chloride 108.6 H Carbon Dioxide BUN Creatinine 0.6 L Glucose 109 H POC Glucose Calcium 8.3 L Phosphorus Magnesium Direct Bilirubin AST Alkaline Phosphatase C-Reactive Protein Serum Total Protein Total Protein Albumin Prealbumin Dvbfn-6-Gkxjpofkf Kxbzi-9-Lglpcrvvl Gamma Globulins PEP Interpretation Triglycerides Urine pH Urine Creatinine Urine Total Protein Vancomycin Trough Digoxin Crossmatch 11/03/19 11/03/19 11/03/19 04:28 12:04 23:02 WBC RBC Hgb Hct MCHC RDW Plt Count Lymph % (Auto) [place] % (Auto) Lymph # [place] # Seg Neutrophils % Seg Neuts % (Manual) Lymphocytes % (Manual) Seg Neutrophils # Seg Neutrophils # Man Lymphocytes # (Manual) Monocytes # (Manual) POC ABG pH ABG pH POC ABG pCO2 45.4 H POC ABG pO2 ABG pO2 ABG HCO3 ABG Base Excess ABG Hemoglobin Oxyhemoglobin Sodium Potassium Chloride Carbon Dioxide BUN Creatinine Glucose POC Glucose 109 H 111 H Calcium Phosphorus Magnesium Direct Bilirubin AST Alkaline Phosphatase C-Reactive Protein Serum Total Protein Total Protein Albumin Prealbumin Jscjc-6-Sdraxenhp Fyamm-5-Irfofpiot Gamma Globulins PEP Interpretation Triglycerides Urine pH Urine Creatinine Urine Total Protein Vancomycin Trough Digoxin Crossmatch 11/04/19 11/04/19 11/04/19 05:00 05:00 05:19 WBC RBC 2.96 L Hgb 8.6 L Hct 25.5 L MCHC RDW 16.7 H Plt Count Lymph % (Auto) [place] % (Auto) Lymph # [place] # Seg Neutrophils % Seg Neuts % (Manual) Lymphocytes % (Manual) Seg Neutrophils # Seg Neutrophils # Man Lymphocytes # (Manual) Monocytes # (Manual) POC ABG pH ABG pH POC ABG pCO2 POC ABG pO2 ABG pO2 ABG HCO3 ABG Base Excess ABG Hemoglobin Oxyhemoglobin Sodium Potassium 3.5 L Chloride Carbon Dioxide BUN Creatinine 0.5 L Glucose 111 H POC Glucose 106 H Calcium 8.1 L Phosphorus Magnesium Direct Bilirubin AST Alkaline Phosphatase C-Reactive Protein Serum Total Protein Total Protein Albumin Prealbumin Ginmn-3-Kbiwqmzhy Yftxu-6-Rhdwofcdh Gamma Globulins PEP Interpretation Triglycerides Urine pH Urine Creatinine Urine Total Protein Vancomycin Trough Digoxin Crossmatch 11/04/19 11/05/19 11/05/19 12:40 00:28 04:19 WBC 12.4 H RBC 2.98 L Hgb 8.5 L Hct 25.5 L MCHC RDW 16.6 H Plt Count Lymph % (Auto) [place] % (Auto) Lymph # [place] # Seg Neutrophils % Seg Neuts % (Manual) Lymphocytes % (Manual) Seg Neutrophils # Seg Neutrophils # Man Lymphocytes # (Manual) Monocytes # (Manual) POC ABG pH ABG pH POC ABG pCO2 POC ABG pO2 ABG pO2 ABG HCO3 ABG Base Excess ABG Hemoglobin Oxyhemoglobin Sodium Potassium Chloride Carbon Dioxide BUN Creatinine Glucose POC Glucose 109 H 132 H Calcium Phosphorus Magnesium Direct Bilirubin AST Alkaline Phosphatase C-Reactive Protein Serum Total Protein Total Protein Albumin Prealbumin Mrhrn-5-Ccisicqca Ynmfr-4-Ggfslzyhn Gamma Globulins PEP Interpretation Triglycerides Urine pH Urine Creatinine Urine Total Protein Vancomycin Trough Digoxin Crossmatch 11/05/19 11/05/19 11/05/19 04:19 05:40 13:14 WBC RBC Hgb Hct MCHC RDW Plt Count Lymph % (Auto) [place] % (Auto) Lymph # [place] # Seg Neutrophils % Seg Neuts % (Manual) Lymphocytes % (Manual) Seg Neutrophils # Seg Neutrophils # Man Lymphocytes # (Manual) Monocytes # (Manual) POC ABG pH ABG pH POC ABG pCO2 POC ABG pO2 ABG pO2 ABG HCO3 ABG Base Excess ABG Hemoglobin Oxyhemoglobin Sodium Potassium 3.4 L Chloride Carbon Dioxide BUN Creatinine 0.4 L Glucose 106 H POC Glucose 136 H 145 H Calcium 8.2 L Phosphorus Magnesium Direct Bilirubin AST Alkaline Phosphatase C-Reactive Protein Serum Total Protein Total Protein Albumin Prealbumin Axegv-7-Iheiredae Jykrj-3-Jsmqjcngk Gamma Globulins PEP Interpretation Triglycerides Urine pH Urine Creatinine Urine Total Protein Vancomycin Trough Digoxin Crossmatch 11/05/19 11/05/19 11/06/19 18:29 23:42 05:00 WBC 12.2 H RBC 2.89 L Hgb 8.2 L Hct 24.9 L MCHC RDW 16.4 H Plt Count Lymph % (Auto) [place] % (Auto) Lymph # [place] # Seg Neutrophils % Seg Neuts % (Manual) Lymphocytes % (Manual) Seg Neutrophils # Seg Neutrophils # Man Lymphocytes # (Manual) Monocytes # (Manual) POC ABG pH ABG pH POC ABG pCO2 POC ABG pO2 ABG pO2 ABG HCO3 ABG Base Excess ABG Hemoglobin Oxyhemoglobin Sodium Potassium Chloride Carbon Dioxide BUN Creatinine Glucose POC Glucose 138 H 117 H Calcium Phosphorus Magnesium Direct Bilirubin AST Alkaline Phosphatase C-Reactive Protein Serum Total Protein Total Protein Albumin Prealbumin Sumjn-7-Zbiiwzjqb Tdggu-3-Rpltbggsp Gamma Globulins PEP Interpretation Triglycerides Urine pH Urine Creatinine Urine Total Protein Vancomycin Trough Digoxin Crossmatch 11/06/19 11/06/19 11/06/19 05:00 05:22 17:39 WBC RBC Hgb Hct MCHC RDW Plt Count Lymph % (Auto) [place] % (Auto) Lymph # [place] # Seg Neutrophils % Seg Neuts % (Manual) Lymphocytes % (Manual) Seg Neutrophils # Seg Neutrophils # Man Lymphocytes # (Manual) Monocytes # (Manual) POC ABG pH ABG pH POC ABG pCO2 POC ABG pO2 ABG pO2 ABG HCO3 ABG Base Excess ABG Hemoglobin Oxyhemoglobin Sodium Potassium Chloride Carbon Dioxide BUN Creatinine 0.4 L Glucose 114 H POC Glucose 121 H 110 H Calcium 8.2 L Phosphorus Magnesium Direct Bilirubin AST Alkaline Phosphatase C-Reactive Protein Serum Total Protein Total Protein Albumin Prealbumin Kxetg-3-Loquxibiy Vmfcm-4-Gteflvrgx Gamma Globulins PEP Interpretation Triglycerides Urine pH Urine Creatinine Urine Total Protein Vancomycin Trough Digoxin Crossmatch 11/06/19 11/07/19 11/07/19 23:29 04:06 04:06 WBC 13.0 H RBC 2.80 L Hgb 7.9 L Hct 24.0 L MCHC RDW 16.5 H Plt Count Lymph % (Auto) 7.0 L [place] % (Auto) Lymph # 0.9 L [place] # Seg Neutrophils % 86.3 H Seg Neuts % (Manual) Lymphocytes % (Manual) Seg Neutrophils # 11.2 H Seg Neutrophils # Man Lymphocytes # (Manual) Monocytes # (Manual) POC ABG pH ABG pH POC ABG pCO2 POC ABG pO2 ABG pO2 ABG HCO3 ABG Base Excess ABG Hemoglobin Oxyhemoglobin Sodium Potassium Chloride Carbon Dioxide BUN Creatinine 0.4 L Glucose 110 H POC Glucose 113 H Calcium 8.2 L Phosphorus Magnesium Direct Bilirubin AST Alkaline Phosphatase C-Reactive Protein Serum Total Protein Total Protein Albumin Prealbumin Fmjfe-9-Husglkrdh Cuiqg-9-Blpeqnmwl Gamma Globulins PEP Interpretation Triglycerides Urine pH Urine Creatinine Urine Total Protein Vancomycin Trough Digoxin Crossmatch 11/07/19 05:43 WBC RBC Hgb Hct MCHC RDW Plt Count Lymph % (Auto) [place] % (Auto) Lymph # [place] # Seg Neutrophils % Seg Neuts % (Manual) Lymphocytes % (Manual) Seg Neutrophils # Seg Neutrophils # Man Lymphocytes # (Manual) Monocytes # (Manual) POC ABG pH ABG pH POC ABG pCO2 POC ABG pO2 ABG pO2 ABG HCO3 ABG Base Excess ABG Hemoglobin Oxyhemoglobin Sodium Potassium Chloride Carbon Dioxide BUN Creatinine Glucose POC Glucose 114 H Calcium Phosphorus Magnesium Direct Bilirubin AST Alkaline Phosphatase C-Reactive Protein Serum Total Protein Total Protein Albumin Prealbumin Hqxhp-1-Tdldwxcbb Rksco-6-Sikiqqgoi Gamma Globulins PEP Interpretation Triglycerides Urine pH Urine Creatinine Urine Total Protein Vancomycin Trough Digoxin Crossmatch Chest x-ray: image reviewed (small bilateral pleural effusion pigtail catheter on the left side no pneumothorax)
[2019-11-07] MEDS ORDERED: ALTEPLASE 2 MG INJ IV ONE (19:32)
[2019-11-07] MEDS: ENOXAPARIN 40 MG/0.4 ML INJ SUB-Q SCH (22:36)
[2019-11-08] MEDS: IPRATROPIUM/ALBUTEROL SULFATE 3 ML AMPUL.NEB IH SCH ×4 (01:09→19:35)
[2019-11-08] MEDS: MEROPENEM/NS 1 GRAM/100 ML 1 GRAM/100 ML BAG IV SCH ×2 (03:30→09:31)
[2019-11-08] MEDS: HYDROmorphone 2 MG/1 ML INJ IV PRN ×2 (04:30→17:08)
[2019-11-08] MEDS: INSULIN LISPRO 100 UNIT/ML SUB-Q SCH ×4 (05:14→23:48)
[2019-11-08 06:19] LABS: Basophils % (Auto) 0.3 % (0.0-1.8); Eosinophils # (Auto) 0.1 K/mm3 (0.0-0.4); Eosinophils % (Auto) 0.4 % (0.0-4.3); Hematocrit 24.4 % (35.5-45.6); Hemoglobin 7.8 gm/dl (11.8-15.2); Lymphocytes # (Auto) 1.2 K/mm3 (1.2-5.4); Lymphocytes % (Auto) 9.4 % (13.4-35.0); Mean Corpuscular HGB Conc 32 % (32-34); Mean Corpuscular Volume 87 fl (84-94); Monocytes # (Auto) 0.9 K/mm3 (0.0-0.8); Monocytes % (Auto) 6.9 % (0.0-7.3); Platelet Count 298 K/mm3 (140-440); Red Blood Count 2.82 M/mm3 (3.65-5.03); Red Cell Distribution Width 16.5 % (13.2-15.2)
[2019-11-08 06:38] LABS: BUN/Creatinine Ratio 33; Blood Urea Nitrogen 13 mg/dL (9-20); Calcium 8.6 mg/dL (8.4-10.2); Hemolysis Index 4
[2019-11-08] MEDS: BUDESONIDE 0.5 MG/2 ML NEBU IH SCH ×2 (07:29→19:35)
[2019-11-08] MEDS: ARFORMOTEROL 15 MCG/2 ML NEBU IH SCH ×2 (07:29→19:35)
[2019-11-08] MEDS: METOPROLOL TARTRATE 50 MG TAB PO SCH ×3 (07:37→22:05)
[2019-11-08] MEDS: PANTOPRAZOLE 40 MG INJ IV SCH (09:09)
[2019-11-08] MEDS: LISINOPRIL 20 MG TAB PO SCH (09:09)
[2019-11-08] MEDS: AMIODARONE 200 MG TAB PO SCH (09:09)
[2019-11-08] MEDS: CITALOPRAM 20 MG TAB PO SCH (09:09)
[2019-11-08] MEDS: MICAFUNGIN 100 MG in SODIUM CHLORIDE 0.9% 100 ML IV SCH (09:30)
--- NOTE | 2019-11-08 10:11 | Progress Note ---
Assessment and Plan Cultures 10/10/2019 surgical culture: No growth at 72 hours 10/13/2019 tracheal aspirate culture: No growth 10/13/2019 peritoneal fluid: Enterococcus species (S to Penicillin, Vancomycin) 10/15/2019 blood culture: no growth 10/26/2019 urine culture: no growth thus far 10/26/2019 blood culture: no growth at 24 hours Assessment: 54 yo M PMhx CAD, COPD, recent complicated course of bowel perforation after a colonoscopy admitted with surgical site dehiscence of the fascia. Now with: 1. Acute sepsis - leukocytosis stable, no fever. Most likely secondary to fluid collection/abscess in the abdomen and anastomotic leak. 2. Intra-abdominal infection from anastomotic leak - s/p ex lap with closure of abdominal wall and wound vac placement (10/05/2019); s/p Re-exploration, washout, transection of colon, Abthera placement - 10/13/2019. s/p re- exploration and colostomy creation on 10/16/2019, intra-operatively was found to have "Small amount of continued leak from the old anastomotic site. Some contamination still present. Bowel was all viable". Back on OR on 10/19/2019, findings "small leak from stump staple line". OR again on 10/22/2019 for: Abdominal washout. Closure of abdominal fascia. Wound vac placement. Findings, "contamination from the sigmoid stump closure site". New drain placed 10/30 with stool-like output. Repeat CT on 11/01 shows increasing left pneumothorax, LLL consolidation, edson effusions. 3. COPD, acute respiratory failure: on the vent. s/p extubation. On NC O2. 4. Penicillin allergy - likely not a true allergy, reviewed EMR for previous exposure to PCNs, patient received several days of Zosyn in 2018 without issue. 5. Left pneumothorax s/p chest tube placement on 10/30/2019. Recs: continue empiric Meropenem and Micafungin till tomorrow D13 of 14 monitor leukocytosis please remove de jesus if not needed will follow Yuki Lorenzo MD [facility] ([facility]) Office [phone] Subjective Date of service: 11/08/19 Principal diagnosis: acute renal failure Interval history: Remains on the vent alert talking tmax 99. Objective - Exam Narrative Exam: General appearance: Alert in NAD Eyes: anicteric sclerae, moist conjunctivae; no lid-lag; PERRLA HENT: Atraumatic; oropharynx clear Lungs: CTA +left CT in place CV: RRR no murmur Abdomen: Soft, surg wound w abthera ostomy, susan drain Extremities: edson leg edema Skin: +scrotal edema Psych: no agitated Neuro: alert follows commands +de jesus - Constitutional Vitals: Vital Signs Temp Pulse Resp BP Pulse Ox 97.6 F 78 18 130/66 97 11/08/19 07:47 11/08/19 09:09 11/08/19 08:30 11/08/19 09:09 11/08/19 08:30 Temperature -Last 24 Hours Temperature 97.6 F Temperature 97.8 F Temperature 98.5 F Temperature 99 F Temperature 97.7 F Temperature 99 F - Labs CBC & Chem 7: 11/08/19 03:45 11/08/19 03:45 Labs: Abnormal lab results 11/07/19 11/07/19 11/08/19 Range/Units 12:47 18:19 03:45 WBC 12.7 H (4.5-11.0) K/mm3 RBC 2.82 L (3.65-5.03) M/mm3 Hgb 7.8 L (11.8-15.2) gm/dl Hct 24.4 L (35.5-45.6) % RDW 16.5 H (13.2-15.2) % Lymph % (Auto) 9.4 L (13.4-35.0) % [place] # 0.9 H (0.0-0.8) K/mm3 Seg Neutrophils % 83.0 H (40.0-70.0) % Seg Neutrophils # 10.6 H (1.8-7.7) K/mm3 Creatinine (0.8-1.5) mg/dL Glucose (75-100) mg/dL POC Glucose 120 H 112 H (70-105) 11/08/19 Range/Units 03:45 WBC (4.5-11.0) K/mm3 RBC (3.65-5.03) M/mm3 Hgb (11.8-15.2) gm/dl Hct (35.5-45.6) % RDW (13.2-15.2) % Lymph % (Auto) (13.4-35.0) % [place] # (0.0-0.8) K/mm3 Seg Neutrophils % (40.0-70.0) % Seg Neutrophils # (1.8-7.7) K/mm3 Creatinine 0.4 L (0.8-1.5) mg/dL Glucose 107 H (75-100) mg/dL POC Glucose (70-105)
--- NOTE | 2019-11-08 11:54 | Progress Note ---
Assessment and Plan - Patient Problems (1) Dehiscence of closure of fascia, superficial or muscular Current Visit: No Status: Acute Qualifiers: Encounter type: initial encounter Qualified Code(s): T81.32XA - Disruption of internal operation (surgical) wound, not elsewhere classified, initial encounter Plan to address problem: Pt stable. s/p ex lap with closure of abdominal wall and wound vac placement (10/05) - POD#34; s/p Re-exploration, washout, transection of colon, Abthera placement - 10/13 - POD#26; s/p abd washout, partial omentectomy, partial colectomy with colostomy - 10/16 POD#23. s/p abd washout, feeding tube placement, AbThera placement - 10/19 - POD#20; Abdominal washout and closure - 10/22 - POD#17 Patient appears stable. WBC slightly lower, but no fevers Rec: 1) Neuro - self-extubated 11/04. 2) CV - BP normal today 3) Resp - On NC. Small bore CT on left. Mgmt per ICU team. Respiratory rate much better. 4) GI - Ostomy looks good. Functioning. Sump drains - Right drain was accidentally pulled out (10/30). Left one is still functioning. New small bore catheter placed 10/30 - moderate output after drain was stripped. Appears like stool. Plan to connect both to wall suction - continuous. Output slowly trending down. Wound Vac - wound looked good on last check. continue wound vac. Ostomy - functioning now. Gastric Port - Appears to be tolerating the clamping. Residuals are minimal (except for last night). Ok to begin water flushes in place of IVFs Rectal tube (malecot) - placed to help decompress rectosigmoid area. Ok if there is drainage around the tube. Will decrease irrigation to BID. Will consider removal the week of Nov 26. 5) - BUN/Cr stable. 6) ID - Abx per ID. Enterococcus on cultures. If patient has worsening labs/vitals, then rescan and place additional drains as appropriate. 7) Nutrition - Tube feeds at goal. Would consider Speech therapy eval again for swallowing. Ok to give free water flushes via gastric port. 8) DVT prophylaxis - SCDs. Lovenox 9) Family -no family at bedside. Spoke with at bedside. 10) PT - will need rehab. Note: Spoke with [facility] surgeon on 11/01/19 about possible transfer. They reviewed the notes that were sent and we discussed the case. They felt that they had nothing else to offer. They agreed with our management. Also agreed that a nother exploration should not be done. If needed, additional drains can be placed. They did suggest putting a Malecot tube in the rectum to decompress that area. (That has been done). This conversation was communicated to the . Please call with questions. Subjective Date of service: 11/08/19 Patient Reports: Positive: no new complaints, pain is less. Negative: nausea, vomiting Objective Vital Signs - 12hr 11/08/19 11/08/19 11/08/19 00:00 00:05 00:30 Temperature Pulse Rate 75 78 75 Pulse Rate [ Anterior Bilateral Throughout] Pulse Rate [ From Monitor] Respiratory 20 27 H 15 Rate Respiratory Rate [Anterior Bilateral Throughout] Blood Pressure 118/54 118/54 133/70 O2 Sat by Pulse 94 97 95 Oximetry 11/08/19 11/08/19 11/08/19 01:00 01:05 01:09 Temperature Pulse Rate 78 Pulse Rate [ 80 Anterior Bilateral Throughout] Pulse Rate [ 77 From Monitor] Respiratory 20 22 Rate Respiratory 22 Rate [Anterior Bilateral Throughout] Blood Pressure 131/71 O2 Sat by Pulse 96 98 Oximetry 11/08/19 11/08/19 11/08/19 01:19 01:30 02:00 Temperature Pulse Rate 80 83 Pulse Rate [ Anterior Bilateral Throughout] Pulse Rate [ From Monitor] Respiratory 23 22 Rate Respiratory Rate [Anterior Bilateral Throughout] Blood Pressure 116/67 130/68 O2 Sat by Pulse 97 95 92 Oximetry 11/08/19 11/08/19 11/08/19 02:23 02:30 03:00 Temperature Pulse Rate 83 81 Pulse Rate [ Anterior Bilateral Throughout] Pulse Rate [ 85 From Monitor] Respiratory 22 21 27 H Rate Respiratory Rate [Anterior Bilateral Throughout] Blood Pressure 134/70 124/68 O2 Sat by Pulse 98 93 90 Oximetry 11/08/19 11/08/19 11/08/19 03:15 03:16 03:30 Temperature 97.8 F Pulse Rate 86 82 Pulse Rate [ Anterior Bilateral Throughout] Pulse Rate [ From Monitor] Respiratory 22 20 Rate Respiratory Rate [Anterior Bilateral Throughout] Blood Pressure 135/67 O2 Sat by Pulse 98 94 Oximetry 11/08/19 11/08/19 11/08/19 04:00 04:30 04:52 Temperature Pulse Rate 85 86 Pulse Rate [ Anterior Bilateral Throughout] Pulse Rate [ From Monitor] Respiratory 11 L 28 H 18 Rate Respiratory Rate [Anterior Bilateral Throughout] Blood Pressure 113/57 137/67 O2 Sat by Pulse 98 93 Oximetry 11/08/19 11/08/19 11/08/19 05:00 05:30 06:00 Temperature Pulse Rate 85 85 82 Pulse Rate [ Anterior Bilateral Throughout] Pulse Rate [ From Monitor] Respiratory 19 18 19 Rate Respiratory Rate [Anterior Bilateral Throughout] Blood Pressure 134/62 125/60 132/57 O2 Sat by Pulse 94 93 92 Oximetry 11/08/19 11/08/19 11/08/19 06:30 07:00 07:29 Temperature Pulse Rate 78 83 Pulse Rate [ 87 Anterior Bilateral Throughout] Pulse Rate [ From Monitor] Respiratory 21 19 Rate Respiratory 22 Rate [Anterior Bilateral Throughout] Blood Pressure 129/64 130/69 O2 Sat by Pulse 94 95 Oximetry 11/08/19 11/08/19 11/08/19 07:30 07:37 07:47 Temperature 97.6 F Pulse Rate 87 83 Pulse Rate [ Anterior Bilateral Throughout] Pulse Rate [ From Monitor] Respiratory 14 Rate Respiratory Rate [Anterior Bilateral Throughout] Blood Pressure 130/70 130/70 O2 Sat by Pulse 97 Oximetry 11/08/19 11/08/19 11/08/19 08:00 08:30 09:00 Temperature 97.6 F Pulse Rate 80 75 76 Pulse Rate [ Anterior Bilateral Throughout] Pulse Rate [ 77 From Monitor] Respiratory 22 18 14 Rate Respiratory Rate [Anterior Bilateral Throughout] Blood Pressure 132/66 121/69 130/66 O2 Sat by Pulse 97 97 98 Oximetry 11/08/19 11/08/19 11/08/19 09:09 09:30 10:00 Temperature Pulse Rate 78 78 77 Pulse Rate [ Anterior Bilateral Throughout] Pulse Rate [ From Monitor] Respiratory 15 23 Rate Respiratory Rate [Anterior Bilateral Throughout] Blood Pressure 130/66 127/66 138/72 O2 Sat by Pulse 96 97 Oximetry 11/08/19 11/08/19 10:30 11:00 Temperature Pulse Rate 79 80 Pulse Rate [ Anterior Bilateral Throughout] Pulse Rate [ From Monitor] Respiratory 20 24 Rate Respiratory Rate [Anterior Bilateral Throughout] Blood Pressure 137/68 134/74 O2 Sat by Pulse 97 96 Oximetry - General physical appearance no distress, no pain, obese, other (looks well) - Respiratory normal expansion, normal respiratory effort - Abdomen soft, not tender, not distended - Labs 11/08/19 03:45 11/08/19 03:45 Diabetes panel 11/08/19 Range/Units 03:45 Sodium 141 (137-145) mmol/L Potassium 3.7 (3.6-5.0) mmol/L Chloride 98.6 (98-107) mmol/L Carbon Dioxide 30 (22-30) mmol/L BUN 13 (9-20) mg/dL Creatinine 0.4 L (0.8-1.5) mg/dL Glucose 107 H (75-100) mg/dL Calcium 8.6 (8.4-10.2) mg/dL Calcium panel 11/08/19 Range/Units 03:45 Calcium 8.6 (8.4-10.2) mg/dL Pituitary panel 11/08/19 Range/Units 03:45 Sodium 141 (137-145) mmol/L Potassium 3.7 (3.6-5.0) mmol/L Chloride 98.6 (98-107) mmol/L Carbon Dioxide 30 (22-30) mmol/L BUN 13 (9-20) mg/dL Creatinine 0.4 L (0.8-1.5) mg/dL Glucose 107 H (75-100) mg/dL Calcium 8.6 (8.4-10.2) mg/dL Adrenal panel 11/08/19 Range/Units 03:45 Sodium 141 (137-145) mmol/L Potassium 3.7 (3.6-5.0) mmol/L Chloride 98.6 (98-107) mmol/L Carbon Dioxide 30 (22-30) mmol/L BUN 13 (9-20) mg/dL Creatinine 0.4 L (0.8-1.5) mg/dL Glucose 107 H (75-100) mg/dL Calcium 8.6 (8.4-10.2) mg/dL
--- NOTE | 2019-11-08 13:21 | Progress Note ---
Assessment and Plan Assessment and plan: Sepsis, recurrent. Etiology likely secondary to fluid collection/abscess in the abdomen and anastomotic leak. Given recent prolonged exposure to abx and TPN, at risk of MDR infections, ID started empiric Meropenem and Micafungin Dehiscence of closure of fascia * Went to OR for ex lap with closure of abdominal wall and wound vac placement (10/05) * Continued to decline with possible Air vs fluid, 10/10/19 IR went in and placed two drains, Noted to have possible fecal material * Returned to the OR 10/13/19 due to concern for intra-abdominal infection and was found to have with heavy contamination of abdomen patent had disruption of bowel anastomosis, abdominal washout, abthera placement and colon stapled transection and left bowel enterotomy from anastomosis completely open * Returned to OR on 10/16/19 for abdominal washout, Partial Omentectomy, Partial Colectomy, Colostomy Creation and AbThera Placement * Abdominal washout and closure - 10/22 * cont wound care Acute Respiratory failure with hypoxia -Extubated 10/25/19 - Re-intubated 10/30 -Patient self extubated morning of 11/04, now on Oxygen by [place] -Human Resource Officer following -Multifactorial secondary to pneumonia, pneumothorax and COPD Sepsis On Merrem, Mifungin ID Physician following right sump drain fell out Surgeon following Left pneumothorax s/p chest tube placed 10/30 Left lower lobe pneumonia -CTA chest showed left lower lobe consolidation with pleural effusion COPD -Stable -cont neb tx GUILLERMO on CKD -due to ATN due to sepsis -Improving, will monitor -SPEP and UPEP pending -No hydronephrosis on CT -[place] in place, monitor I/O's Severe Metabolic acidosis -Improved Acute Toxic Metabolic Encephalopathy/Delirium Tremens -Started on CIWA protocol due to hx of ETOH abuse, 6packs a day -Head CT scan negative for acute findings Acute blood loss anemia -H/H stable -Continue to monitor H&H and transfuse for hb<7 SVT, Atrial fib/flutter with RVR -treated with adenosine x1 -off amiodarone and cardizem drip. On oral amiodarone and IV Lopressor. -HR currently controlled -Cardiology following Hypotension -Off esmolol drip -s/p IV fluid boluses, BP stable Hypophosphatemia -will monitor level Hypernatremia start D5W Hypokalemia Replace iv Hx of Hypertension -Stable Hyperlipidemia -stable Atypical chest pain -probably secondary to pneumonitis -troponin levels neg Hx of CT/CAD -s/p PCI of the circumflex and second vessel POBA of the distal LAD occlusion. Left ventricle fraction of 45-50%. Morbid obesity with BMI of 43.4 -Lifestyle modification recommended Moderate Protein calorie malnutrition secondary to surgery -On TPN -Nutrition following Tobacco abuse -Cessation recommended Morbid obesity with BMI of 43.4 -Lifestyle modification recommended DVT and GI ppx: Lovenox/PPI Disp: Prognosis guarded The high probability of a clinically significant, sudden or life threatening deterioration of the [respiratory] system(s) required my full and direct attention, intervention and personal management. The aggregate critical care time was [33] minutes. This time is in addition to time spent performing reported procedures but includes the following: [x] Data Review and interpretation [x] Patient assessment and monitoring of vital signs [x] Documentation [x] Medication orders and management History Interval history: Patient self extubated. Hospitalist Physical - Constitutional Vitals: Temp Pulse Resp BP Pulse Ox 97.3 F L 80 24 134/74 96 11/08/19 12:00 11/08/19 11:00 11/08/19 11:00 11/08/19 11:00 11/08/19 11:00 General appearance: Present: no acute distress, obese - EENT Eyes: Present: PERRL, EOM intact ENT: hearing intact, clear oral mucosa, dentition normal - Neck Neck: Present: supple, normal ROM - Respiratory Respiratory effort: normal Respiratory: bilateral: CTA - Cardiovascular Rhythm: regular Heart Sounds: Present: S1 & S2. Absent: gallop, rub - Extremities Extremities: no ischemia, No edema, Full ROM - Abdominal General gastrointestinal: soft, non-tender, non-distended, normal bowel sounds - Integumentary Integumentary: Present: clear, warm, dry - Neurologic Neurologic: CNII-XII intact, moves all extremities Results - Labs CBC & Chem 7: 11/08/19 03:45 11/08/19 03:45 Labs: Laboratory Last Values WBC 12.7 K/mm3 (4.5-11.0) H 11/08/19 03:45 RBC 2.82 M/mm3 (3.65-5.03) L 11/08/19 03:45 Hgb 7.8 gm/dl (11.8-15.2) L 11/08/19 03:45 Hct 24.4 % (35.5-45.6) L 11/08/19 03:45 MCV 87 fl (84-94) 11/08/19 03:45 MCH 28 pg (28-32) 11/08/19 03:45 MCHC 32 % (32-34) 11/08/19 03:45 RDW 16.5 % (13.2-15.2) H 11/08/19 03:45 Plt Count 298 K/mm3 (140-440) 11/08/19 03:45 Lymph % (Auto) 9.4 % (13.4-35.0) L 11/08/19 03:45 [place] % (Auto) 6.9 % (0.0-7.3) 11/08/19 03:45 Eos % (Auto) 0.4 % (0.0-4.3) 11/08/19 03:45 Baso % (Auto) 0.3 % (0.0-1.8) 11/08/19 03:45 Lymph # 1.2 K/mm3 (1.2-5.4) 11/08/19 03:45 [place] # 0.9 K/mm3 (0.0-0.8) H 11/08/19 03:45 Eos # 0.1 K/mm3 (0.0-0.4) 11/08/19 03:45 Baso # 0.0 K/mm3 (0.0-0.1) 11/08/19 03:45 Add Manual Diff Complete 10/16/19 09:20 Total Counted 100 10/16/19 09:20 Seg Neutrophils % 83.0 % (40.0-70.0) H 11/08/19 03:45 Seg Neuts % (Manual) 79.0 % (40.0-70.0) H 10/16/19 09:20 Band Neutrophils % 12.0 % 10/16/19 09:20 Lymphocytes % (Manual) 4.0 % (13.4-35.0) L 10/16/19 09:20 Reactive Lymphs % (Man) 0 % 10/16/19 09:20 Monocytes % (Manual) 2.0 % (0.0-7.3) 10/16/19 09:20 Eosinophils % (Manual) 0 % (0.0-4.3) 10/16/19 09:20 Basophils % (Manual) 0 % (0.0-1.8) 10/16/19 09:20 Metamyelocytes % 2.0 % 10/16/19 09:20 Myelocytes % 1.0 % 10/16/19 09:20 Promyelocytes % 0 % 10/16/19 09:20 Blast Cells % 0 % 10/16/19 09:20 Nucleated RBC % Not Reportable 10/16/19 09:20 Seg Neutrophils # 10.6 K/mm3 (1.8-7.7) H 11/08/19 03:45 Seg Neutrophils # Man 11.5 K/mm3 (1.8-7.7) H 10/16/19 09:20 Band Neutrophils # 1.8 K/mm3 10/16/19 09:20 Lymphocytes # (Manual) 0.6 K/mm3 (1.2-5.4) L 10/16/19 09:20 Abs React Lymphs (Man) 0.0 K/mm3 10/16/19 09:20 Monocytes # (Manual) 0.3 K/mm3 (0.0-0.8) 10/16/19 09:20 Eosinophils # (Manual) 0.0 K/mm3 (0.0-0.4) 10/16/19 09:20 Basophils # (Manual) 0.0 K/mm3 (0.0-0.1) 10/16/19 09:20 Metamyelocytes # 0.3 K/mm3 10/16/19 09:20 Myelocytes # 0.1 K/mm3 10/16/19 09:20 Promyelocytes # 0.0 K/mm3 10/16/19 09:20 Blast Cells # 0.0 K/mm3 10/16/19 09:20 WBC Morphology Not Reportable 10/16/19 09:20 Hypersegmented Neuts Not Reportable 10/16/19 09:20 Hyposegmented Neuts Not Reportable 10/16/19 09:20 Hypogranular Neuts Not Reportable 10/16/19 09:20 Smudge Cells Not Reportable 10/16/19 09:20 Toxic Granulation Not Reportable 10/16/19 09:20 Toxic Vacuolation Not Reportable 10/16/19 09:20 Dohle Bodies Not Reportable 10/16/19 09:20 Pelger-Huet Anomaly Not Reportable 10/16/19 09:20 Andres Rods Not Reportable 10/16/19 09:20 Platelet Estimate Consistent w auto 10/16/19 09:20 Clumped Platelets Not Reportable 10/16/19 09:20 Plt Clumps, EDTA Not Reportable 10/16/19 09:20 Large Platelets Not Reportable 10/16/19 09:20 Giant Platelets Not Reportable 10/16/19 09:20 Platelet Satelliting Not Reportable 10/16/19 09:20 Plt Morphology Comment Not Reportable 10/16/19 09:20 RBC Morphology Not Reportable 10/16/19 09:20 Dimorphic RBCs Not Reportable 10/16/19 09:20 Polychromasia Few 10/16/19 09:20 Hypochromasia Few 10/16/19 09:20 Poikilocytosis Not Reportable 10/16/19 09:20 Anisocytosis Not Reportable 10/16/19 09:20 Microcytosis Not Reportable 10/16/19 09:20 Macrocytosis Not Reportable 10/16/19 09:20 Spherocytes Not Reportable 10/16/19 09:20 Pappenheimer Bodies Not Reportable 10/16/19 09:20 Sickle Cells Not Reportable 10/16/19 09:20 Target Cells Few 10/16/19 09:20 Tear Drop Cells Not Reportable 10/16/19 09:20 Ovalocytes Not Reportable 10/16/19 09:20 Helmet Cells Not Reportable 10/16/19 09:20 Varghese-[place] Bodies Not Reportable 10/16/19 09:20 [place] Rings Not Reportable 10/16/19 09:20 Bishnu Cells Not Reportable 10/16/19 09:20 Bite Cells Not Reportable 10/16/19 09:20 Crenated Cell Not Reportable 10/16/19 09:20 Elliptocytes Not Reportable 10/16/19 09:20 Acanthocytes (Spur) Not Reportable 10/16/19 09:20 Rouleaux Not Reportable 10/16/19 09:20 Hemoglobin C Crystals Not Reportable 10/16/19 09:20 Schistocytes Not Reportable 10/16/19 09:20 Malaria parasites Not Reportable 10/16/19 09:20 Toni Bodies Not Reportable 10/16/19 09:20 Hem Pathologist Commnt No 10/16/19 09:20 POC ABG pH 7.422 (7.35-7.45) 11/03/19 04:28 ABG pH 7.390 pH Units (7.350-7.450) 10/23/19 04:47 POC ABG pCO2 45.4 (35-45) H 11/03/19 04:28 ABG pCO2 48.4 mm Hg 10/23/19 04:47 POC ABG pO2 83 (80-105) 11/03/19 04:28 ABG pO2 68.9 mm Hg (80.0-90.0) L 10/23/19 04:47 POC ABG HCO3 29.6 (22-26 mml/L) 11/03/19 04:28 ABG HCO3 28.7 mmol/L (20.0-26.0) H 10/23/19 04:47 POC ABG Total CO2 31 (23-27mmol/L) 11/03/19 04:28 POC ABG O2 Sat 96 11/03/19 04:28 ABG O2 Saturation 96.6 % (95.0-99.0) 10/23/19 04:47 ABG O2 Content 8.8 (0.0-44) 10/23/19 04:47 POC ABG Base Excess 5 ((-2) - (+3)mmol/L) 11/03/19 04:28 ABG Base Excess 3.4 mmol/L (-2.0-3.0) H 10/23/19 04:47 ABG Hemoglobin 6.6 gm/dl (14.0-18.0) L 10/23/19 04:47 ABG Carboxyhemoglobin 2.1 % (0.0-5.0) 10/23/19 04:47 ABG Methemoglobin 0.5 % (0.0-1.5) 10/23/19 04:47 Oxyhemoglobin 94.1 % (95.0-99.0) L 10/23/19 04:47 FiO2 40 % 11/03/19 04:28 Sodium 141 mmol/L (137-145) 11/08/19 03:45 Potassium 3.7 mmol/L (3.6-5.0) 11/08/19 03:45 Chloride 98.6 mmol/L (98-107) 11/08/19 03:45 Carbon Dioxide 30 mmol/L (22-30) 11/08/19 03:45 Anion Gap 16 mmol/L 11/08/19 03:45 BUN 13 mg/dL (9-20) 11/08/19 03:45 Creatinine 0.4 mg/dL (0.8-1.5) L 11/08/19 03:45 Estimated GFR > 60 ml/min 11/08/19 03:45 BUN/Creatinine Ratio 33 % 11/08/19 03:45 Glucose 107 mg/dL (75-100) H 11/08/19 03:45 POC Glucose 118 (70-105) H 11/08/19 11:43 Hemoglobin A1c 5.7 % (4-6) 10/06/19 05:36 Lactic Acid 1.10 mmol/L (0.7-2.0) 10/13/19 04:20 Calcium 8.6 mg/dL (8.4-10.2) 11/08/19 03:45 Ionized Calcium 5.2 mg/dL (4.8-5.6) 10/18/19 07:41 Phosphorus 2.70 mg/dL (2.5-4.5) 11/02/19 12:43 Magnesium 2.40 mg/dL (1.7-2.3) H 11/02/19 12:43 Total Bilirubin 1.10 mg/dL (0.1-1.2) 10/26/19 06:15 Direct Bilirubin 0.7 mg/dL (0-0.2) H 10/23/19 10:44 Indirect Bilirubin 0.1 mg/dL 10/23/19 10:44 AST 23 units/L (5-40) 10/26/19 06:15 ALT 13 units/L (7-56) 10/26/19 06:15 Alkaline Phosphatase 148 units/L (35-129) H 10/26/19 06:15 Ammonia 49.0 umol/L (25-60) 10/13/19 04:20 Troponin T < 0.010 ng/mL (0.00-0.029) 10/09/19 17:23 C-Reactive Protein 30.60 mg/dL (0.00-1.30) H 10/15/19 04:32 Serum Total Protein 5.2 g/dL (6.1-8.1) L 10/11/19 09:00 Total Protein 5.9 g/dL (6.3-8.2) L 10/26/19 06:15 Albumin 2.4 g/dL (3.9-5) L 10/26/19 06:15 Albumin/Globulin Ratio 0.7 % 10/26/19 06:15 Prealbumin 0.030 g/L (0.200-0.400) L 10/15/19 04:32 [id number] See scanned result 10/11/19 Unknown [id number] See scanned result 10/11/19 Unknown Beta Globulins See scanned result 10/11/19 Unknown Gamma Globulins See scanned result 10/11/19 Unknown Abnorm Protein Band 1 see below 10/11/19 09:00 PEP Interpretation See scanned result 10/11/19 Unknown Triglycerides 185 mg/dL (2-149) H 10/26/19 06:15 Urine Color Yellow (Yellow) 10/26/19 Unknown Urine Turbidity Clear (Clear) 10/26/19 Unknown Urine pH 9.0 (5.0-7.0) H 10/26/19 Unknown Ur Specific [place] 1.011 (1.003-1.030) 10/26/19 Unknown Urine Protein 30 mg/dl mg/dL (Negative) 10/26/19 Unknown Urine Glucose (UA) Neg mg/dL (Negative) 10/26/19 Unknown Urine Ketones Neg mg/dL (Negative) 10/26/19 Unknown Urine Blood Neg (Negative) 10/26/19 Unknown Urine Nitrite Neg (Negative) 10/26/19 Unknown Urine Bilirubin Neg (Negative) 10/26/19 Unknown Urine Urobilinogen < 2.0 mg/dL (<2.0) 10/26/19 Unknown Ur Leukocyte Esterase Neg (Negative) 10/26/19 Unknown Urine WBC (Auto) 1.0 /HPF (0.0-6.0) 10/26/19 Unknown Urine RBC (Auto) 1.0 /HPF (0.0-6.0) 10/26/19 Unknown Urine Bacteria (Auto) 1+ /HPF (Negative) 10/11/19 06:23 Urine Mucus Few /HPF 10/26/19 Unknown Urine Eosinophils None seen (None Seen) 10/11/19 06:23 Ur Random Creatinine See scanned result 10/11/19 Unknown U Random Total Protein See scanned result 10/11/19 Unknown Urine Creatinine 116.8 mg/dL (0.1-20.0) H 10/11/19 06:23 Urine Creatinine 118.2 mg/dL (0.1-20.0) H 10/11/19 06:23 Protein/Creatinin Ratio See scanned result 10/11/19 Unknown Urine Sodium 14 mmol/L 10/11/19 06:23 Urine Total Protein 104 mg/dL (5-11.8) H 10/11/19 06:23 Urine Total Protein 105 mg/dL (5-11.8) H 10/11/19 06:23 U Abnormal Prot Band 1 See scanned result 10/11/19 Unknown U Abnormal Prot Band 2 See scanned result 10/11/19 Unknown U Abnormal Prot Band 3 See scanned result 10/11/19 Unknown Vancomycin Trough 5.7 ug/mL (5.0-20.0) 11/05/19 09:00 Random Vancomycin 9.6 ug/mL (0-40.0) 11/03/19 03:42 Digoxin 0.7 ng/mL (0.9-2.0) L 10/19/19 04:21 Blood Type A POSITIVE 10/23/19 11:50 Antibody Screen Negative 10/23/19 11:50 Crossmatch See Detail 10/23/19 11:50 Active Medications - Current Medications Current Medications: Generic Name Dose Route Start Last Admin Trade Name Freq PRN Reason Stop Dose Admin Acetaminophen 650 mg 10/25/19 13:00 11/03/19 16:03 Tylenol FEEDTUBE 650 mg Q4H PRN Administration Fever >100.5 Acetaminophen/Hydrocodone Bitart 7.5 mg 11/07/19 16:57 Hydrocodone/Apap 7.5-325 FEEDTUBE Q4H PRN Pain, Moderate (4-6) Albuterol/Ipratropium 1 ampul 10/06/19 02:00 11/08/19 07:31 Duoneb *Not For Prn Use* IH Not Given Q6HRT VERÓNICA Amiodarone HCl 200 mg 10/23/19 13:00 11/08/19 09:09 Cordarone PO 200 mg QDAY VERÓNICA Administration Lipase/Protease/Amylase 1 each 10/20/19 10:37 Shaggy Moreno 10,500 Unit FEEDTUBE PRN PRN For Clogged Feeding Tube Arformoterol Tartrate 15 mcg 10/06/19 08:30 11/08/19 07:29 Brovana Nebu IH 15 mcg Q12HRT VERÓNICA Administration Budesonide 0.5 mg 10/07/19 12:20 11/08/19 07:29 Pulmicort IH 0.5 mg Q12HRT VERÓNICA Administration Citalopram Hydrobromide 20 mg 10/27/19 12:00 11/08/19 09:09 Celexa PO 20 mg DAILY VERÓNICA Administration Enoxaparin Sodium 40 mg 11/05/19 22:00 11/07/19 22:36 Enoxaparin SUB-Q 40 mg QDAY@2200 VERÓNICA Administration Haloperidol Lactate 5 mg 10/25/19 18:22 11/03/19 21:22 Haldol IV 5 mg Q6H PRN Administration Agitation Hydralazine HCl 10 mg 10/28/19 14:09 11/02/19 15:34 Apresoline IV 10 mg Q4HR PRN Administration Hypertension Hydromorphone HCl 2 mg 10/25/19 12:35 11/08/19 04:30 Dilaudid IV 2 mg Q4H PRN Administration Pain , Severe (7-10) MEROPENEM/NS 1 GRAM/100 ML 1 gram in 100 mls @ 100 mls/hr 10/26/19 18:30 11/08/19 09:31 Merrem/Ns 1 Gram/100 Ml IV 100 mls/hr Q8H VERÓNICA Administration Protocol Micafungin Sodium 100 mg/ 100 mls @ 100 mls/hr 10/26/19 18:30 11/08/19 09:30 Sodium Chloride IV 100 mls/hr QDAY [facility] Administration Protocol Insulin Human Lispro 0 unit 10/14/19 12:00 11/08/19 11:58 Humalog SUB-Q Not Given Q6HR [facility] Protocol Lisinopril 20 mg 10/30/19 10:00 11/08/19 09:09 Zestril PO 20 mg QDAY VERÓNICA Administration Metoprolol Tartrate 2.5 mg 10/15/19 15:34 11/01/19 18:00 Metoprolol IV 2.5 mg Q4HR PRN Administration HR >130 Metoprolol Tartrate 50 mg 10/25/19 14:00 11/08/19 07:37 Metoprolol PO 50 mg Q8HR VERÓNICA Administration Multi-Ingred Cream/Lotion/Oil/Oint 1 applic 10/14/19 02:19 Artificial Tears Ophth Oint OU Q4HR PRN Dry Eye(s) Pantoprazole Sodium 40 mg 10/15/19 10:00 11/08/19 09:09 Protonix IV 40 mg QDAY VERÓNICA Administration Simple Syrup 15 ml 10/20/19 10:37 Simple Syrup FEEDTUBE PRN PRN Hypoglycemia Simple Syrup 30 ml 10/20/19 10:37 Simple Syrup FEEDTUBE PRN PRN Hypoglycemia Sodium Bicarbonate 325 mg 10/20/19 10:37 Sodium Bicarbonate FEEDTUBE PRN PRN For Clogged Feeding Tube Sodium Chloride 10 ml 11/07/19 19:32 11/08/19 09:10 Sodium Chloride Flush Syringe 10 Ml IV 10 ml PRN PRN Administration LINE FLUSH Nutrition/Malnutrition Assess - Dietary Evaluation Nutrition/Malnutrition Findings: Nutrition Notes Start: 10/08/19 11:36 Freq: Status: Active Protocol: Document 11/05/19 11:30 LM (Rec: 11/05/19 11:39 LM [id number]) Nutrition Notes Initial or Follow up Reassessment Other Pertinent Diagnosis intra-abdominal infection, disruption of bowel anastomosis, LE edema Current Diet Osmolite 1.5 at 60 ml/hr Labs/Tests K 3.4 Cr 0.4 BG 106 HgbA1C 5.7 Pertinent Medications Reviewed Height 6 ft Weight 145 kg [place] Body Weight (kg) 80.90 BMI 43.3 Weight Status Morbidly Obese Subjective/Other Information Osmolite running at 60 ml/hr. Pt tolerating new TF. Percent of energy/protein needs met: 100%/66% Burn Absent Trauma Absent GI Symptoms None Current % PO Negligible Minimum of two criteria No physical signs of malnutrition Fluid Accumulation Mild (non-severe) #2 Nutrition Diagnosis Inadequate oral intake Diagnosis Progress(for reassessment Continues documentation) #1 Nutrition Diagnosis Increased nutrient needs ( specify in comment below) Diagnosis Progress(for reassessment Continues documentation) Is patient on ventilator? No Is Patient Ambulatory and/or Out of Bed No REE-([place] Jeor-confined to bed) 2785.236 Kcal/Kg value to use for calculation 14 Approximate Energy Requirements Using 2030 kcal/Kg Calculation Used for Recommendations Kcal/kg Additional Notes Protein: 136-169g (1.2-1.5g/kg ) AdjBW 113kg Fluid 1 ml/kcal or per MD Nutrition Intervention Change Diet Order: Continue TF Nutrition Support: Osmolite 1.5 at 60 ml/hr Flush 170 ml q4hr Kcal 2,160 Protein (gm) 90 Fluid (mL) 1,097 Goal #1 Meet at least 80% of kcal/ protein needs via TF Goal #2 TF tolerance Anticipated Discharge Needs: unable to determine at this time Follow-Up By: 11/12/19 Additional Comments F/U for TF tolerance
--- NOTE | 2019-11-08 16:31 | Cat Scan Report ---
EXAM: CT guided left 12 [place]araguan chest tube placement CLINICAL INDICATION: Left-sided pneumothorax DATE: 10/30/19 [place] WAITRESS/WAITER: LIZ HDZ MD MEDICATIONS: Conscious sedation using Versed and fentanyl was performed under guidance of radiologic nursing. Continuous cardiopulmonary monitoring was utilized. PROCEDURE: Following an explanation of the risks, benefits and alternatives; written informed consent was obtained. The patient was brought to the CT suite and placed in the position on the CT table. Radiology Orderly CT was performed of the chest. After determining the appropriate site, the skin was infiltrated with lidocaine and a finder needle was placed. Intermittent CT was performed until the desired position was identified. The 18 gauge trocar needle was inserted into the left pleural cavity . Aspiration was performed of the gas confirming position. J wire was then advanced through the needle and into the left pleural cavity. The needle was exchanged for multiple dilators that were used to serially dilate over the wire. A 12 Fr APD drain was advanced over the wire and metal stiffener. The metal stiffener and wire were removed. Final CT scanning was performed. The pigtail was secured and aspirated until no more material could be aspirated. Sterile bandage was applied. Silk suture was used to secure the tube. The patient tolerated the procedure well. There were no immediate postprocedural complications. FINDINGS: 1. Initial CT demonstrates left pneumothorax. There is a satisfactory window for CT drainage. 2. Intermittent CT demonstrates the 18 gauge needle was placed in the left pneumothorax. 3. Wire is coiled in the left pneumothorax/left pleural cavity. 4. Final CT documents placement of a 12 Fr drain in the left pleural cavity/pneumothorax. IMPRESSION: Successful CT guided 12 [place]araguan chest tube placement in the left pleural cavity/pneumothorax.
--- NOTE | 2019-11-08 16:34 | Cat Scan Report ---
EXAM: CT guided 12 Amharic left lower quadrant drain placement CLINICAL INDICATION: Fluid collections in the abdomen with recent accidental removal of a large bore drain DATE: 10/30/19 FLOORING PROFESSIONAL: LIZ HDZ MD MEDICATIONS: Conscious sedation using Versed and fentanyl was performed under guidance of radiologic nursing. Continuous cardiopulmonary monitoring was utilized. PROCEDURE: Following an explanation of the risks, benefits and alternatives; written informed consent was obtained. The patient was brought to the CT suite and placed in the supine position on the CT table. Director Consumer CT was performed of the abdomen and pelvis. After determining the appropriate site, the skin was infiltrated with lidocaine and a finder needle was placed. Intermittent CT was performed until the desired position was identified. The 18 gauge trocar needle was inserted into the left lower quadrant fluid collection . Aspiration was performed and sent to the lab for analysis. J wire was then advanced through the needle and into the collection. The needle was exchanged for multiple dilators that were used to serially dilate over the wire. A 12 Fr APD drain was advanced over the wire and metal stiffener. The metal stiffener and wire were removed. Final CT scanning was performed. The pigtail was secured and aspirated until no more material could be aspirated. Sterile bandage was applied. Multiple silk sutures used to secure the tube. The patient tolerated the procedure well. There were no immediate postprocedural complications. FINDINGS: 1. Initial CT demonstrates multiple soft fluid collections with a fluid collection near the anastomotic suture line with request for drainage of this collection. There is a satisfactory window for CT drainage. 2. Intermittent CT demonstrates the 18 gauge needle was placed in the left lower quadrant fluid collection. 3. Wire is coiled in the left lower quadrant fluid collection. 4. Final CT documents placement of a 12 Fr drain in the left lower quadrant fluid collection. IMPRESSION: Successful CT guided 12 Amharic left lower quadrant abdominal drain placement in a fluid collection/abscess.
--- NOTE | 2019-11-08 16:39 | Cat Scan Report ---
EXAM: CT guided right upper quadrant abdominal [address] guided right lower quadrant abdominal 8 Turkish drain placement CLINICAL INDICATION: Multiple fluid collections in the abdomen was request for drainage DATE: 09/30/19 ASSOCIATE PROFESSOR PHYSICIAN: LIZ HDZ MD MEDICATIONS: Conscious sedation using Versed and fentanyl was performed under guidance of radiologic nursing. Continuous cardiopulmonary monitoring was utilized. PROCEDURE: Following an explanation of the risks, benefits and alternatives; written informed consent was obtained. The patient was brought to the CT suite and placed in the supine position on the CT table. Caul Dresser CT was performed of the abdomen and pelvis. After determining the appropriate site, the skin was infiltrated with lidocaine and a finder needle was placed. Intermittent CT was performed until the desired position was identified. The 18 gauge trocar needle was inserted into the right upper quadrant collection . Aspiration was performed and sent to the lab for analysis. J wire was then advanced through the needle and into the collection. The needle was exchanged for multiple dilators that were used to serially dilate over the wire. A 8 Fr APD drain was advanced over the wire and metal stiffener. The metal stiffener and wire were removed. Final CT scanning was performed. The pigtail was secured and aspirated until no more material could be aspirated. Next, rn cvor was performed of the pelvis area and after determining the appropriate site, the skin was infiltrated with lidocaine and a finder needle was placed. Intermittent CT was performed until the desired position was identified. The 18-gauge trocar needle was inserted into the right lower quadrant collection. Aspiration was performed and sent to the lab for analysis. J wire was then advanced through the needle and into the collection. The needle was exchanged for multiple dilators that were used to serially dilate over the wire. A 8 Fr APD drain was advanced over the wire and metal stiffener. The metal stiffener and wire were removed. Final CT scanning was performed. The pigtail was secured and aspirated until no more material could be aspirated. Sterile bandage was applied. Each tube was then secured with multiple silk sutures. The patient tolerated the procedure well. There were no immediate postprocedural complications. FINDINGS: 1. Initial CT demonstrates multiple fluid collections in the abdomen with the largest in the right upper quadrant right lower quadrant. There is a satisfactory window for CT drainage. 2. Intermittent CT demonstrates the 18 gauge needle was placed first in the right upper quadrant fluid collection, and then, a separate needle was placed into the right lower quadrant fluid collection. 3. Wire is coiled in the right upper quadrant fluid collection, and later, the right lower quadrant fluid collection. 4. Final CT documents placement of a 8 Turkish drain in the right upper quadrant fluid collection, and 8 Fr drain in the right lower quadrant fluid collection. 5. Some of the material from the right lower quadrant drain was feculent which was discussed with the general surgeon caring for the patient. IMPRESSION: Successful CT guided 8 Turkish drain placement in a right upper quadrant abdominal fluid collection/abscess. Successful CT guided 8 Turkish drain placement into right lower quadrant abdominal fluid collection/abscess.
[2019-11-08] MEDS: ENOXAPARIN 40 MG/0.4 ML INJ SUB-Q SCH (22:06)
--- NOTE | 2019-11-08 22:09 | Progress Note ---
Assessment and Plan Imp: 1. Colon perforation/peritonitis/anastamotic leak s/p multiple surgeries 2. Sepsis 3. Acute respiratory failure, hypoxia 4. Obesity 5. KALI 6. Centrilobular emphysema, severe 7. Chronic nicotine dependence, cigarettes 8. HTN 9. CAD s/p PCI 10. Ischemic cardiomyopathy 11. PTX on L Rec: 1. ABX per ID 2. Wean O2 to keep sats 88% or > 3. Cont. current nebs 4. Optimize nutrition; monitor elytes 5. DVT PPx 6. Stop smoking 7. Cont. chest tube to water seal today; monitor output the next 24 hours given worsening pleural effusion on CXR; IR likely can remove soon 8. Complex decision-making No family present Subjective Date of service: 11/08/19 Principal diagnosis: acute renal failure Interval history: No events. On nasal cannula. Arousable. Denies SOB or pain currently. Active Medications Acetaminophen (Tylenol) 650 mg FEEDTUBE Q4H PRN PRN Reason: Fever >100.5 Last Admin: 11/03/19 16:03 Dose: 650 mg Documented by: Acetaminophen/Hydrocodone Bitart (Hydrocodone/Apap 7.5-325) 7.5 mg FEEDTUBE Q4H PRN PRN Reason: Pain, Moderate (4-6) Albuterol/Ipratropium (Duoneb *Not For Prn Use*) 1 ampul IH Q6HRT [facility] Last Admin: 11/08/19 19:35 Dose: 1 ampul Documented by: Amiodarone HCl (Cordarone) 200 mg PO QDAY [facility] Last Admin: 11/08/19 09:09 Dose: 200 mg Documented by: Lipase/Protease/Amylase (Shaggy Moreno 10,500 Unit) 1 each FEEDTUBE PRN PRN PRN Reason: For Clogged Feeding Tube Arformoterol Tartrate (Brovana Nebu) 15 mcg IH Q12HRT [facility] Last Admin: 11/08/19 19:35 Dose: 15 mcg Documented by: Budesonide (Pulmicort) 0.5 mg IH Q12HRT [facility] Last Admin: 11/08/19 19:35 Dose: 0.5 mg Documented by: Citalopram Hydrobromide (Celexa) 20 mg PO DAILY [facility] Last Admin: 11/08/19 09:09 Dose: 20 mg Documented by: Enoxaparin Sodium (Enoxaparin) 40 mg SUB-Q QDAY@2200 VER[place]NICA Last Admin: 11/08/19 22:06 Dose: 40 mg Documented by: Haloperidol Lactate (Haldol) 5 mg IV Q6H PRN PRN Reason: Agitation Last Admin: 11/03/19 21:22 Dose: 5 mg Documented by: Hydralazine HCl (Apresoline) 10 mg IV Q4HR PRN PRN Reason: Hypertension Last Admin: 11/02/19 15:34 Dose: 10 mg Documented by: Hydromorphone HCl (Dilaudid) 2 mg IV Q4H PRN PRN Reason: Pain , Severe (7-10) Last Admin: 11/08/19 17:08 Dose: 2 mg Documented by: MEROPENEM/NS 1 GRAM/100 ML (Merrem/Ns 1 Gram/100 Ml) 1 gram in 100 mls @ 100 mls/hr IV Q8H [facility]; Protocol Last Admin: 11/08/19 09:31 Dose: 100 mls/hr Documented by: Micafungin Sodium 100 mg/ (Sodium Chloride) 100 mls @ 100 mls/hr IV QDAY [facility]; Protocol Last Admin: 11/08/19 09:30 Dose: 100 mls/hr Documented by: Insulin Human Lispro (Humalog) 0 unit SUB-Q Q6HR [facility]; Protocol Last Admin: 11/08/19 17:10 Dose: Not Given Documented by: Lisinopril (Zestril) 20 mg PO QDAY [facility] Last Admin: 11/08/19 09:09 Dose: 20 mg Documented by: Metoprolol Tartrate (Metoprolol) 2.5 mg IV Q4HR PRN PRN Reason: HR >130 Last Admin: 11/01/19 18:00 Dose: 2.5 mg Documented by: Metoprolol Tartrate (Metoprolol) 50 mg PO Q8HR [facility] Last Admin: 11/08/19 22:05 Dose: 50 mg Documented by: Multi-Ingred Cream/Lotion/Oil/Oint (Artificial Tears Ophth Oint) 1 applic OU Q4HR PRN PRN Reason: Dry Eye(s) Pantoprazole Sodium (Protonix) 40 mg IV QDAY [facility] Last Admin: 11/08/19 09:09 Dose: 40 mg Documented by: Simple Syrup (Simple Syrup) 15 ml FEEDTUBE PRN PRN PRN Reason: Hypoglycemia Simple Syrup (Simple Syrup) 30 ml FEEDTUBE PRN PRN PRN Reason: Hypoglycemia Sodium Bicarbonate (Sodium Bicarbonate) 325 mg FEEDTUBE PRN PRN PRN Reason: For Clogged Feeding Tube Sodium Chloride (Sodium Chloride Flush Syringe 10 Ml) 10 ml IV PRN PRN PRN Reason: LINE FLUSH Last Admin: 11/08/19 09:10 Dose: 10 ml Documented by: Objective Vital Signs - 12hr 11/08/19 11/08/19 11/08/19 10:30 11:00 11:30 Temperature Pulse Rate 79 80 81 Pulse Rate [ Anterior Bilateral Throughout] Pulse Rate [ From Monitor] Respiratory 20 24 26 H Rate Respiratory Rate [Anterior Bilateral Throughout] Blood Pressure 137/68 134/74 133/77 O2 Sat by Pulse 97 96 98 Oximetry 11/08/19 11/08/19 11/08/19 12:00 12:30 13:00 Temperature 97.3 F L Pulse Rate 79 83 81 Pulse Rate [ Anterior Bilateral Throughout] Pulse Rate [ 79 From Monitor] Respiratory 25 H 20 23 Rate Respiratory Rate [Anterior Bilateral Throughout] Blood Pressure 135/70 135/75 132/65 O2 Sat by Pulse 94 97 96 Oximetry 11/08/19 11/08/19 11/08/19 13:30 13:35 14:00 Temperature Pulse Rate 79 80 78 Pulse Rate [ Anterior Bilateral Throughout] Pulse Rate [ From Monitor] Respiratory 22 22 Rate Respiratory Rate [Anterior Bilateral Throughout] Blood Pressure 139/70 139/70 132/69 O2 Sat by Pulse 94 95 Oximetry 11/08/19 11/08/19 11/08/19 14:09 14:30 15:00 Temperature Pulse Rate 77 79 Pulse Rate [ 75 Anterior Bilateral Throughout] Pulse Rate [ From Monitor] Respiratory 20 18 Rate Respiratory 18 Rate [Anterior Bilateral Throughout] Blood Pressure 132/69 132/66 O2 Sat by Pulse 95 91 Oximetry 11/08/19 11/08/19 11/08/19 15:30 16:00 16:30 Temperature 98.0 F Pulse Rate 79 80 80 Pulse Rate [ Anterior Bilateral Throughout] Pulse Rate [ 80 From Monitor] Respiratory 24 17 18 Rate Respiratory Rate [Anterior Bilateral Throughout] Blood Pressure 130/68 136/73 137/74 O2 Sat by Pulse 92 94 Oximetry 11/08/19 11/08/19 11/08/19 17:00 17:30 18:00 Temperature Pulse Rate 80 84 80 Pulse Rate [ Anterior Bilateral Throughout] Pulse Rate [ From Monitor] Respiratory 22 25 H 19 Rate Respiratory Rate [Anterior Bilateral Throughout] Blood Pressure 136/69 132/76 130/64 O2 Sat by Pulse 93 93 91 Oximetry 11/08/19 11/08/19 11/08/19 18:30 19:00 19:30 Temperature Pulse Rate 82 81 80 Pulse Rate [ Anterior Bilateral Throughout] Pulse Rate [ From Monitor] Respiratory 20 21 20 Rate Respiratory Rate [Anterior Bilateral Throughout] Blood Pressure 125/58 126/64 128/66 O2 Sat by Pulse 88 97 95 Oximetry 11/08/19 11/08/19 11/08/19 19:36 19:37 19:50 Temperature 98.4 F Pulse Rate Pulse Rate [ 81 Anterior Bilateral Throughout] Pulse Rate [ From Monitor] Respiratory Rate Respiratory 22 Rate [Anterior Bilateral Throughout] Blood Pressure O2 Sat by Pulse 97 Oximetry 11/08/19 11/08/19 11/08/19 20:00 20:25 20:30 Temperature Pulse Rate 84 87 87 Pulse Rate [ Anterior Bilateral Throughout] Pulse Rate [ 80 From Monitor] Respiratory 23 17 21 Rate Respiratory Rate [Anterior Bilateral Throughout] Blood Pressure 127/60 110/53 O2 Sat by Pulse 96 92 89 Oximetry 11/08/19 11/08/19 21:00 22:05 Temperature Pulse Rate 86 87 Pulse Rate [ Anterior Bilateral Throughout] Pulse Rate [ From Monitor] Respiratory 21 Rate Respiratory Rate [Anterior Bilateral Throughout] Blood Pressure 110/53 120/68 O2 Sat by Pulse 93 Oximetry Constitutional: no acute distress, alert, other (obese) Eyes: non-icteric ENT: oropharynx moist Neck: supple Effort: normal Ascultation: Bilateral: diminished breath sounds (bases) Cardiovascular: regular rate and rhythm (no mrg) Gastrointestinal: tender, other (obese, distended, ostomy in place; wound vac in place) Integumentary: normal Extremities: no cyanosis, pink and warm, edema (1+ bilateral LE edema) Neurologic: normal mental status, non-focal exam, pupils equal and round Psychiatric: mood appropriate, affect normal CBC and BMP: 11/08/19 03:45 11/08/19 03:45 ABG, PT/INR, D-dimer: ABG POC ABG pH 7.422 (7.35-7.45) 11/03/19 04:28 ABG pH 7.390 pH Units (7.350-7.450) 10/23/19 04:47 POC ABG pCO2 45.4 (35-45) H 11/03/19 04:28 ABG pCO2 48.4 mm Hg 10/23/19 04:47 POC ABG pO2 83 (80-105) 11/03/19 04:28 ABG pO2 68.9 mm Hg (80.0-90.0) L 10/23/19 04:47 POC ABG HCO3 29.6 (22-26 mml/L) 11/03/19 04:28 POC ABG Total CO2 31 (23-27mmol/L) 11/03/19 04:28 POC ABG O2 Sat 96 11/03/19 04:28 ABG O2 Saturation 96.6 % (95.0-99.0) 10/23/19 04:47 Abnormal lab findings: Abnormal Labs 10/06/19 10/06/19 10/07/19 05:36 05:36 05:54 WBC 21.8 H 21.5 H RBC 3.55 L Hgb 10.9 L Hct 32.7 L MCHC RDW Plt Count Lymph % (Auto) Ashley % (Auto) Lymph # Ashley # Seg Neutrophils % Seg Neuts % (Manual) 91.0 H Lymphocytes % (Manual) 2.0 L Seg Neutrophils # Seg Neutrophils # Man 19.8 H Lymphocytes # (Manual) 0.4 L Monocytes # (Manual) 1.1 H POC ABG pH ABG pH POC ABG pCO2 POC ABG pO2 ABG pO2 ABG HCO3 ABG Base Excess ABG Hemoglobin Oxyhemoglobin Sodium 135 L Potassium Chloride 95.9 L Carbon Dioxide BUN Creatinine 0.7 L Glucose POC Glucose Calcium Phosphorus Magnesium Direct Bilirubin AST Alkaline Phosphatase C-Reactive Protein Serum Total Protein Total Protein 5.7 L Albumin 2.5 L Prealbumin Uiifl-9-Cigyhboxo Gaczi-9-Vsbwemrzl Gamma Globulins PEP Interpretation Triglycerides Urine pH Urine Creatinine Urine Total Protein Vancomycin Trough Digoxin Crossmatch 10/07/19 10/09/19 10/09/19 05:54 10:52 10:52 WBC 16.6 H RBC Hgb Hct MCHC RDW Plt Count 498 H Lymph % (Auto) Ashley % (Auto) Lymph # Ashley # Seg Neutrophils % Seg Neuts % (Manual) 93.0 H Lymphocytes % (Manual) 5.0 L Seg Neutrophils # Seg Neutrophils # Man 15.4 H Lymphocytes # (Manual) 0.8 L Monocytes # (Manual) POC ABG pH ABG pH POC ABG pCO2 POC ABG pO2 ABG pO2 ABG HCO3 ABG Base Excess ABG Hemoglobin Oxyhemoglobin Sodium Potassium Chloride 97.9 L Carbon Dioxide 20 L D BUN 23 H Creatinine 1.7 H D Glucose 109 H POC Glucose Calcium 8.1 L Phosphorus Magnesium Direct Bilirubin AST Alkaline Phosphatase C-Reactive Protein Serum Total Protein Total Protein Albumin Prealbumin Kxpcp-7-Sudwextca Giici-5-Girloatyv Gamma Globulins PEP Interpretation Triglycerides Urine pH Urine Creatinine Urine Total Protein Vancomycin Trough Digoxin Crossmatch 10/09/19 10/10/19 10/10/19 17:23 05:30 05:30 WBC 14.6 H RBC Hgb 11.1 L Hct 33.5 L MCHC RDW Plt Count 527 H Lymph % (Auto) Ashley % (Auto) Lymph # Ashley # Seg Neutrophils % Seg Neuts % (Manual) Lymphocytes % (Manual) Seg Neutrophils # Seg Neutrophils # Man Lymphocytes # (Manual) Monocytes # (Manual) POC ABG pH ABG pH POC ABG pCO2 POC ABG pO2 ABG pO2 ABG HCO3 ABG Base Excess ABG Hemoglobin Oxyhemoglobin Sodium 130 L D Potassium 5.1 H Chloride 90.0 L 91.0 L Carbon Dioxide 20 L 20 L BUN 27 H 35 H Creatinine 1.9 H 2.0 H Glucose 104 H POC Glucose Calcium Phosphorus Magnesium Direct Bilirubin AST Alkaline Phosphatase C-Reactive Protein Serum Total Protein Total Protein Albumin Prealbumin Enofs-8-Xkvfstkkr Vexuf-2-Hnaisaaoa Gamma Globulins PEP Interpretation Triglycerides Urine pH Urine Creatinine Urine Total Protein Vancomycin Trough Digoxin Crossmatch 10/10/19 10/10/19 10/11/19 08:33 08:44 05:41 WBC 13.2 H RBC Hgb 11.3 L Hct 33.8 L MCHC RDW 15.3 H Plt Count 543 H Lymph % (Auto) Ashley % (Auto) Lymph # Ashley # Seg Neutrophils % Seg Neuts % (Manual) Lymphocytes % (Manual) Seg Neutrophils # Seg Neutrophils # Man Lymphocytes # (Manual) Monocytes # (Manual) POC ABG pH ABG pH POC ABG pCO2 POC ABG pO2 ABG pO2 ABG HCO3 ABG Base Excess ABG Hemoglobin Oxyhemoglobin Sodium Potassium Chloride Carbon Dioxide BUN Creatinine Glucose 113 H POC Glucose 117 H Calcium Phosphorus Magnesium Direct Bilirubin AST Alkaline Phosphatase C-Reactive Protein Serum Total Protein Total Protein Albumin Prealbumin Jzpkz-2-Tulmatsph Eacyg-8-Rbylsaghz Gamma Globulins PEP Interpretation Triglycerides Urine pH Urine Creatinine Urine Total Protein Vancomycin Trough Digoxin Crossmatch 10/11/19 10/11/19 10/11/19 05:41 06:23 06:23 WBC RBC Hgb Hct MCHC RDW Plt Count Lymph % (Auto) Ashley % (Auto) Lymph # Ashley # Seg Neutrophils % Seg Neuts % (Manual) Lymphocytes % (Manual) Seg Neutrophils # Seg Neutrophils # Man Lymphocytes # (Manual) Monocytes # (Manual) POC ABG pH ABG pH POC ABG pCO2 POC ABG pO2 ABG pO2 ABG HCO3 ABG Base Excess ABG Hemoglobin Oxyhemoglobin Sodium 134 L Potassium Chloride 96.3 L Carbon Dioxide BUN 37 H Creatinine Glucose 58 L POC Glucose Calcium Phosphorus 4.90 H Magnesium Direct Bilirubin AST Alkaline Phosphatase C-Reactive Protein Serum Total Protein Total Protein Albumin Prealbumin Pjphc-7-Tkysrbjue Mdunv-2-Wcqzoxzgm Gamma Globulins PEP Interpretation Triglycerides Urine pH Urine Creatinine 118.2 H 116.8 H Urine Total Protein 105 H 104 H Vancomycin Trough Digoxin Crossmatch 10/11/19 10/12/19 10/12/19 09:00 06:09 06:09 WBC 13.8 H RBC 3.39 L Hgb 10.2 L Hct 30.9 L MCHC RDW 15.5 H Plt Count 459 H Lymph % (Auto) Ashley % (Auto) Lymph # Ashley # Seg Neutrophils % Seg Neuts % (Manual) Lymphocytes % (Manual) Seg Neutrophils # Seg Neutrophils # Man Lymphocytes # (Manual) Monocytes # (Manual) POC ABG pH ABG pH POC ABG pCO2 POC ABG pO2 ABG pO2 ABG HCO3 ABG Base Excess ABG Hemoglobin Oxyhemoglobin Sodium 131 L Potassium Chloride 96.2 L Carbon Dioxide 21 L BUN 43 H Creatinine Glucose 72 L POC Glucose Calcium Phosphorus Magnesium Direct Bilirubin AST Alkaline Phosphatase C-Reactive Protein Serum Total Protein 5.2 L Total Protein Albumin 1.9 L Prealbumin Tdvcz-3-Tjqhvatgk 0.9 H Ojiee-3-Fxjawolhb 1.0 H Gamma Globulins 0.7 L PEP Interpretation see below H Triglycerides Urine pH Urine Creatinine Urine Total Protein Vancomycin Trough Digoxin Crossmatch 10/12/19 10/12/19 10/12/19 08:20 09:30 09:30 WBC RBC Hgb Hct MCHC RDW Plt Count Lymph % (Auto) Ashley % (Auto) Lymph # Ashley # Seg Neutrophils % Seg Neuts % (Manual) Lymphocytes % (Manual) Seg Neutrophils # Seg Neutrophils # Man Lymphocytes # (Manual) Monocytes # (Manual) POC ABG pH ABG pH POC ABG pCO2 POC ABG pO2 63 L ABG pO2 ABG HCO3 ABG Base Excess ABG Hemoglobin Oxyhemoglobin Sodium Potassium Chloride Carbon Dioxide BUN Creatinine Glucose POC Glucose Calcium Phosphorus Magnesium 2.50 H Direct Bilirubin 0.3 H AST Alkaline Phosphatase C-Reactive Protein Serum Total Protein Total Protein 5.1 L Albumin 2.2 L Prealbumin Xxuyj-7-Ziqpfwhji Qvthg-4-Fgajsdxye Gamma Globulins PEP Interpretation Triglycerides Urine pH Urine Creatinine Urine Total Protein Vancomycin Trough Digoxin Crossmatch 10/13/19 10/13/19 10/13/19 04:20 04:20 13:20 WBC 15.7 H RBC 3.64 L Hgb 10.9 L Hct 33.1 L MCHC RDW 15.8 H Plt Count 488 H Lymph % (Auto) Ashley % (Auto) Lymph # Ashley # Seg Neutrophils % Seg Neuts % (Manual) Lymphocytes % (Manual) Seg Neutrophils # Seg Neutrophils # Man Lymphocytes # (Manual) Monocytes # (Manual) POC ABG pH ABG pH POC ABG pCO2 POC ABG pO2 ABG pO2 ABG HCO3 ABG Base Excess ABG Hemoglobin Oxyhemoglobin Sodium Potassium Chloride Carbon Dioxide BUN 28 H Creatinine Glucose POC Glucose Calcium Phosphorus Magnesium Direct Bilirubin AST Alkaline Phosphatase C-Reactive Protein Serum Total Protein Total Protein Albumin Prealbumin Jzyuo-8-Efmvqsvjd Iquia-6-Dhnphnpmt Gamma Globulins PEP Interpretation Triglycerides Urine pH Urine Creatinine Urine Total Protein Vancomycin Trough Digoxin Crossmatch See Detail 10/13/19 10/13/19 10/14/19 18:24 20:05 04:47 WBC 24.2 H RBC Hgb 10.9 L Hct 34.2 L MCHC RDW 17.0 H Plt Count 442 H Lymph % (Auto) Ashley % (Auto) Lymph # Ashley # Seg Neutrophils % Seg Neuts % (Manual) Lymphocytes % (Manual) Seg Neutrophils # Seg Neutrophils # Man Lymphocytes # (Manual) Monocytes # (Manual) POC ABG pH ABG pH 7.180 L* 7.278 L POC ABG pCO2 POC ABG pO2 ABG pO2 130.7 H ABG HCO3 ABG Base Excess -6.5 L -6.5 L ABG Hemoglobin 12.2 L 12.3 L Oxyhemoglobin 92.9 L Sodium Potassium Chloride Carbon Dioxide BUN Creatinine Glucose POC Glucose Calcium Phosphorus Magnesium Direct Bilirubin AST Alkaline Phosphatase C-Reactive Protein Serum Total Protein Total Protein Albumin Prealbumin Rkfny-7-Uhgtcjwse Zvkwf-3-Xigzryzar Gamma Globulins PEP Interpretation Triglycerides Urine pH Urine Creatinine Urine Total Protein Vancomycin Trough Digoxin Crossmatch 10/14/19 10/14/19 10/14/19 04:47 05:40 10:14 WBC RBC Hgb Hct MCHC RDW Plt Count Lymph % (Auto) Ashley % (Auto) Lymph # Ashley # Seg Neutrophils % Seg Neuts % (Manual) Lymphocytes % (Manual) Seg Neutrophils # Seg Neutrophils # Man Lymphocytes # (Manual) Monocytes # (Manual) POC ABG pH ABG pH POC ABG pCO2 POC ABG pO2 ABG pO2 76.3 L ABG HCO3 19.1 L ABG Base Excess -5.8 L ABG Hemoglobin 10.9 L Oxyhemoglobin 93.4 L Sodium Potassium 5.1 H D Chloride 109.2 H Carbon Dioxide 17 L BUN 38 H Creatinine 1.8 H D Glucose 104 H POC Glucose Calcium 7.4 L Phosphorus 5.60 H Magnesium Direct Bilirubin AST Alkaline Phosphatase C-Reactive Protein Serum Total Protein Total Protein Albumin Prealbumin Vttrl-0-Jxwmusgqg Phofw-8-Fisaccbsa Gamma Globulins PEP Interpretation Triglycerides Urine pH Urine Creatinine Urine Total Protein Vancomycin Trough Digoxin Crossmatch 10/14/19 10/15/19 10/15/19 23:46 04:32 04:32 WBC 15.5 H RBC 2.89 L Hgb 8.8 L Hct 27.3 L D MCHC RDW 16.6 H Plt Count Lymph % (Auto) Ashley % (Auto) Lymph # Ashley # Seg Neutrophils % Seg Neuts % (Manual) Lymphocytes % (Manual) Seg Neutrophils # Seg Neutrophils # Man Lymphocytes # (Manual) Monocytes # (Manual) POC ABG pH ABG pH POC ABG pCO2 POC ABG pO2 ABG pO2 ABG HCO3 ABG Base Excess ABG Hemoglobin Oxyhemoglobin Sodium 147 H Potassium Chloride 114.0 H Carbon Dioxide 19 L BUN 42 H Creatinine Glucose 112 H POC Glucose 113 H Calcium 7.3 L Phosphorus Magnesium Direct Bilirubin AST 72 H Alkaline Phosphatase C-Reactive Protein 30.60 H Serum Total Protein Total Protein 4.0 L D Albumin 1.7 L Prealbumin 0.030 L Kqzty-6-Guqxzvhjh Cjuxe-8-Ufxnpqqok Gamma Globulins PEP Interpretation Triglycerides Urine pH Urine Creatinine Urine Total Protein Vancomycin Trough Digoxin Crossmatch 10/15/19 10/15/19 10/15/19 05:30 12:08 17:23 WBC RBC Hgb Hct MCHC RDW Plt Count Lymph % (Auto) Ashley % (Auto) Lymph # Ashley # Seg Neutrophils % Seg Neuts % (Manual) Lymphocytes % (Manual) Seg Neutrophils # Seg Neutrophils # Man Lymphocytes # (Manual) Monocytes # (Manual) POC ABG pH ABG pH 7.296 L POC ABG pCO2 POC ABG pO2 ABG pO2 114.7 H ABG HCO3 ABG Base Excess -3.7 L ABG Hemoglobin 8.9 L Oxyhemoglobin Sodium Potassium Chloride Carbon Dioxide BUN Creatinine Glucose POC Glucose 106 H 106 H Calcium Phosphorus Magnesium Direct Bilirubin AST Alkaline Phosphatase C-Reactive Protein Serum Total Protein Total Protein Albumin Prealbumin Ttzgj-3-Csbnhxhwo Hedse-3-Rfihfehro Gamma Globulins PEP Interpretation Triglycerides Urine pH Urine Creatinine Urine Total Protein Vancomycin Trough Digoxin Crossmatch 10/16/19 10/16/19 10/16/19 00:07 04:44 05:24 WBC RBC Hgb Hct MCHC RDW Plt Count Lymph % (Auto) Ashley % (Auto) Lymph # Ashley # Seg Neutrophils % Seg Neuts % (Manual) Lymphocytes % (Manual) Seg Neutrophils # Seg Neutrophils # Man Lymphocytes # (Manual) Monocytes # (Manual) POC ABG pH ABG pH POC ABG pCO2 POC ABG pO2 ABG pO2 ABG HCO3 ABG Base Excess ABG Hemoglobin Oxyhemoglobin Sodium 150 H Potassium Chloride 115.8 H Carbon Dioxide BUN 35 H Creatinine Glucose 129 H POC Glucose 119 H 129 H Calcium 7.3 L Phosphorus 1.80 L D Magnesium Direct Bilirubin AST Alkaline Phosphatase C-Reactive Protein Serum Total Protein Total Protein Albumin Prealbumin Gvnfn-4-Afcgfwfbe Kcbuy-6-Lguiwzlpu Gamma Globulins PEP Interpretation Triglycerides Urine pH Urine Creatinine Urine Total Protein Vancomycin Trough Digoxin Crossmatch 10/16/19 10/16/19 10/16/19 06:53 09:20 11:58 WBC 14.6 H RBC 2.70 L Hgb 8.1 L Hct 25.2 L MCHC RDW 16.7 H Plt Count Lymph % (Auto) Ashley % (Auto) Lymph # Ashley # Seg Neutrophils % Seg Neuts % (Manual) 79.0 H Lymphocytes % (Manual) 4.0 L Seg Neutrophils # Seg Neutrophils # Man 11.5 H Lymphocytes # (Manual) 0.6 L Monocytes # (Manual) POC ABG pH ABG pH POC ABG pCO2 47.0 H POC ABG pO2 ABG pO2 ABG HCO3 ABG Base Excess ABG Hemoglobin Oxyhemoglobin Sodium Potassium Chloride Carbon Dioxide BUN Creatinine Glucose POC Glucose Calcium Phosphorus Magnesium Direct Bilirubin AST Alkaline Phosphatase C-Reactive Protein Serum Total Protein Total Protein Albumin Prealbumin Zrvut-1-Bkjlaxwlf Sqxuf-0-Rjnufdcgn Gamma Globulins PEP Interpretation Triglycerides Urine pH Urine Creatinine Urine Total Protein Vancomycin Trough Digoxin Crossmatch See Detail 10/16/19 10/16/19 10/16/19 15:23 17:50 23:58 WBC RBC Hgb Hct MCHC RDW Plt Count Lymph % (Auto) Ashley % (Auto) Lymph # Ashley # Seg Neutrophils % Seg Neuts % (Manual) Lymphocytes % (Manual) Seg Neutrophils # Seg Neutrophils # Man Lymphocytes # (Manual) Monocytes # (Manual) POC ABG pH ABG pH POC ABG pCO2 POC ABG pO2 ABG pO2 ABG HCO3 ABG Base Excess ABG Hemoglobin Oxyhemoglobin Sodium Potassium Chloride Carbon Dioxide BUN Creatinine Glucose POC Glucose 221 H 201 H 179 H Calcium Phosphorus Magnesium Direct Bilirubin AST Alkaline Phosphatase C-Reactive Protein Serum Total Protein Total Protein Albumin Prealbumin Ibuay-6-Cawdmodrs Jhjmr-1-Oxtsysgac Gamma Globulins PEP Interpretation Triglycerides Urine pH Urine Creatinine Urine Total Protein Vancomycin Trough Digoxin Crossmatch 10/17/19 10/17/19 10/17/19 04:08 04:08 05:41 WBC 22.3 H RBC 3.35 L Hgb 10.0 L Hct 31.2 L D MCHC RDW 16.1 H Plt Count Lymph % (Auto) Ashley % (Auto) Lymph # Ashley # Seg Neutrophils % Seg Neuts % (Manual) Lymphocytes % (Manual) Seg Neutrophils # Seg Neutrophils # Man Lymphocytes # (Manual) Monocytes # (Manual) POC ABG pH 7.310 L ABG pH POC ABG pCO2 52.8 H POC ABG pO2 70 L ABG pO2 ABG HCO3 ABG Base Excess ABG Hemoglobin Oxyhemoglobin Sodium 147 H Potassium Chloride 114.9 H Carbon Dioxide BUN 36 H Creatinine Glucose 165 H POC Glucose Calcium 6.9 L Phosphorus 2.20 L D Magnesium Direct Bilirubin AST Alkaline Phosphatase C-Reactive Protein Serum Total Protein Total Protein Albumin Prealbumin Viven-9-Bsaiqockb Eecbf-2-Zlwhzqnjo Gamma Globulins PEP Interpretation Triglycerides Urine pH Urine Creatinine Urine Total Protein Vancomycin Trough Digoxin Crossmatch 10/17/19 10/17/19 10/17/19 05:42 11:33 18:17 WBC RBC Hgb Hct MCHC RDW Plt Count Lymph % (Auto) Ashley % (Auto) Lymph # Ashley # Seg Neutrophils % Seg Neuts % (Manual) Lymphocytes % (Manual) Seg Neutrophils # Seg Neutrophils # Man Lymphocytes # (Manual) Monocytes # (Manual) POC ABG pH ABG pH POC ABG pCO2 POC ABG pO2 ABG pO2 ABG HCO3 ABG Base Excess ABG Hemoglobin Oxyhemoglobin Sodium Potassium Chloride Carbon Dioxide BUN Creatinine Glucose POC Glucose 149 H 154 H 163 H Calcium Phosphorus Magnesium Direct Bilirubin AST Alkaline Phosphatase C-Reactive Protein Serum Total Protein Total Protein Albumin Prealbumin Clvxt-7-Ljpegnzlv Lwtfl-9-Tnetviilo Gamma Globulins PEP Interpretation Triglycerides Urine pH Urine Creatinine Urine Total Protein Vancomycin Trough Digoxin Crossmatch 10/17/19 10/18/19 10/18/19 23:34 03:29 04:50 WBC RBC Hgb Hct MCHC RDW Plt Count Lymph % (Auto) Ashley % (Auto) Lymph # Ashley # Seg Neutrophils % Seg Neuts % (Manual) Lymphocytes % (Manual) Seg Neutrophils # Seg Neutrophils # Man Lymphocytes # (Manual) Monocytes # (Manual) POC ABG pH ABG pH POC ABG pCO2 POC ABG pO2 ABG pO2 78.8 L ABG HCO3 ABG Base Excess ABG Hemoglobin 8.8 L Oxyhemoglobin Sodium Potassium Chloride 111.8 H Carbon Dioxide BUN 27 H Creatinine 0.6 L Glucose 140 H POC Glucose 135 H Calcium 7.1 L Phosphorus 1.80 L Magnesium Direct Bilirubin AST Alkaline Phosphatase C-Reactive Protein Serum Total Protein Total Protein Albumin Prealbumin Imlze-4-Jyvsilkrl Tstpi-5-Bxdzqtmjc Gamma Globulins PEP Interpretation Triglycerides Urine pH Urine Creatinine Urine Total Protein Vancomycin Trough Digoxin Crossmatch 10/18/19 10/18/19 10/18/19 05:45 11:19 18:26 WBC RBC Hgb Hct MCHC RDW Plt Count Lymph % (Auto) Ashley % (Auto) Lymph # Ashley # Seg Neutrophils % Seg Neuts % (Manual) Lymphocytes % (Manual) Seg Neutrophils # Seg Neutrophils # Man Lymphocytes # (Manual) Monocytes # (Manual) POC ABG pH ABG pH POC ABG pCO2 POC ABG pO2 ABG pO2 ABG HCO3 ABG Base Excess ABG Hemoglobin Oxyhemoglobin Sodium Potassium Chloride Carbon Dioxide BUN Creatinine Glucose POC Glucose 145 H 152 H 125 H Calcium Phosphorus Magnesium Direct Bilirubin AST Alkaline Phosphatase C-Reactive Protein Serum Total Protein Total Protein Albumin Prealbumin Sntwc-7-Rklnyzdik Segsz-8-Hvvlhjtqs Gamma Globulins PEP Interpretation Triglycerides Urine pH Urine Creatinine Urine Total Protein Vancomycin Trough Digoxin Crossmatch 10/18/19 10/19/19 10/19/19 23:27 04:21 04:21 WBC RBC Hgb Hct MCHC RDW Plt Count Lymph % (Auto) Ashley % (Auto) Lymph # Ashley # Seg Neutrophils % Seg Neuts % (Manual) Lymphocytes % (Manual) Seg Neutrophils # Seg Neutrophils # Man Lymphocytes # (Manual) Monocytes # (Manual) POC ABG pH ABG pH POC ABG pCO2 POC ABG pO2 ABG pO2 ABG HCO3 ABG Base Excess ABG Hemoglobin Oxyhemoglobin Sodium Potassium Chloride 108.4 H Carbon Dioxide BUN 22 H Creatinine 0.5 L Glucose 123 H POC Glucose 127 H Calcium 7.4 L Phosphorus 1.80 L Magnesium Direct Bilirubin AST Alkaline Phosphatase C-Reactive Protein Serum Total Protein Total Protein Albumin Prealbumin Rfopr-1-Rnhmqgjpm Qpjiq-7-Jjscltmzu Gamma Globulins PEP Interpretation Triglycerides Urine pH Urine Creatinine Urine Total Protein Vancomycin Trough Digoxin 0.7 L Crossmatch 10/19/19 10/19/19 10/19/19 05:00 05:35 11:26 WBC RBC Hgb Hct MCHC RDW Plt Count Lymph % (Auto) Ashley % (Auto) Lymph # Ashley # Seg Neutrophils % Seg Neuts % (Manual) Lymphocytes % (Manual) Seg Neutrophils # Seg Neutrophils # Man Lymphocytes # (Manual) Monocytes # (Manual) POC ABG pH ABG pH 7.456 H POC ABG pCO2 POC ABG pO2 ABG pO2 78.8 L ABG HCO3 ABG Base Excess ABG Hemoglobin 5.6 L Oxyhemoglobin Sodium Potassium Chloride Carbon Dioxide BUN Creatinine Glucose POC Glucose 124 H 111 H Calcium Phosphorus Magnesium Direct Bilirubin AST Alkaline Phosphatase C-Reactive Protein Serum Total Protein Total Protein Albumin Prealbumin Qxaln-0-Tchjkyutj Pcssq-9-Mpkzapvio Gamma Globulins PEP Interpretation Triglycerides Urine pH Urine Creatinine Urine Total Protein Vancomycin Trough Digoxin Crossmatch 10/19/19 10/20/19 10/20/19 23:23 04:50 05:17 WBC RBC Hgb Hct MCHC RDW Plt Count Lymph % (Auto) Ashley % (Auto) Lymph # Ashley # Seg Neutrophils % Seg Neuts % (Manual) Lymphocytes % (Manual) Seg Neutrophils # Seg Neutrophils # Man Lymphocytes # (Manual) Monocytes # (Manual) POC ABG pH ABG pH POC ABG pCO2 POC ABG pO2 ABG pO2 ABG HCO3 ABG Base Excess ABG Hemoglobin Oxyhemoglobin Sodium Potassium Chloride 108.1 H Carbon Dioxide BUN Creatinine 0.4 L Glucose 134 H POC Glucose 129 H 123 H Calcium 7.1 L Phosphorus Magnesium Direct Bilirubin AST Alkaline Phosphatase C-Reactive Protein Serum Total Protein Total Protein Albumin Prealbumin Bdgva-2-Gumhsvixk Zfudu-0-Awtdinsho Gamma Globulins PEP Interpretation Triglycerides Urine pH Urine Creatinine Urine Total Protein Vancomycin Trough Digoxin Crossmatch 10/20/19 10/20/19 10/21/19 11:40 19:06 05:08 WBC RBC Hgb Hct MCHC RDW Plt Count Lymph % (Auto) Ashley % (Auto) Lymph # Ashley # Seg Neutrophils % Seg Neuts % (Manual) Lymphocytes % (Manual) Seg Neutrophils # Seg Neutrophils # Man Lymphocytes # (Manual) Monocytes # (Manual) POC ABG pH ABG pH POC ABG pCO2 POC ABG pO2 ABG pO2 ABG HCO3 ABG Base Excess ABG Hemoglobin Oxyhemoglobin Sodium Potassium Chloride Carbon Dioxide BUN Creatinine Glucose POC Glucose 139 H 117 H 131 H Calcium Phosphorus Magnesium Direct Bilirubin AST Alkaline Phosphatase C-Reactive Protein Serum Total Protein Total Protein Albumin Prealbumin Ijlfu-1-Hblwdqkmr Yfedo-2-Cepczbtpn Gamma Globulins PEP Interpretation Triglycerides Urine pH Urine Creatinine Urine Total Protein Vancomycin Trough Digoxin Crossmatch 10/21/19 10/21/19 10/21/19 05:30 12:04 17:31 WBC RBC Hgb Hct MCHC RDW Plt Count Lymph % (Auto) Ashley % (Auto) Lymph # Ashley # Seg Neutrophils % Seg Neuts % (Manual) Lymphocytes % (Manual) Seg Neutrophils # Seg Neutrophils # Man Lymphocytes # (Manual) Monocytes # (Manual) POC ABG pH ABG pH POC ABG pCO2 POC ABG pO2 ABG pO2 ABG HCO3 ABG Base Excess ABG Hemoglobin Oxyhemoglobin Sodium Potassium Chloride 107.8 H Carbon Dioxide BUN Creatinine 0.5 L Glucose 119 H POC Glucose 119 H 110 H Calcium 7.6 L Phosphorus Magnesium Direct Bilirubin AST Alkaline Phosphatase C-Reactive Protein Serum Total Protein Total Protein Albumin Prealbumin Ficdf-6-Ljpefrqay Ecmgi-8-Qqpzotnxb Gamma Globulins PEP Interpretation Triglycerides Urine pH Urine Creatinine Urine Total Protein Vancomycin Trough Digoxin Crossmatch 10/22/19 10/22/19 10/22/19 05:14 05:37 12:07 WBC RBC Hgb Hct MCHC RDW Plt Count Lymph % (Auto) Ashley % (Auto) Lymph # Ashley # Seg Neutrophils % Seg Neuts % (Manual) Lymphocytes % (Manual) Seg Neutrophils # Seg Neutrophils # Man Lymphocytes # (Manual) Monocytes # (Manual) POC ABG pH ABG pH POC ABG pCO2 POC ABG pO2 ABG pO2 ABG HCO3 ABG Base Excess ABG Hemoglobin Oxyhemoglobin Sodium Potassium Chloride Carbon Dioxide BUN Creatinine 0.5 L Glucose 116 H POC Glucose 110 H 126 H Calcium 7.7 L Phosphorus Magnesium Direct Bilirubin AST Alkaline Phosphatase C-Reactive Protein Serum Total Protein Total Protein Albumin Prealbumin Tyrqs-9-Rzwovtpjs Iciow-6-Tmtxtphwq Gamma Globulins PEP Interpretation Triglycerides Urine pH Urine Creatinine Urine Total Protein Vancomycin Trough Digoxin Crossmatch 10/22/19 10/22/19 10/23/19 18:36 23:19 04:39 WBC RBC Hgb Hct MCHC RDW Plt Count Lymph % (Auto) Ashley % (Auto) Lymph # Ashley # Seg Neutrophils % Seg Neuts % (Manual) Lymphocytes % (Manual) Seg Neutrophils # Seg Neutrophils # Man Lymphocytes # (Manual) Monocytes # (Manual) POC ABG pH ABG pH POC ABG pCO2 POC ABG pO2 ABG pO2 ABG HCO3 ABG Base Excess ABG Hemoglobin Oxyhemoglobin Sodium Potassium Chloride Carbon Dioxide BUN Creatinine Glucose POC Glucose 120 H 127 H 112 H Calcium Phosphorus Magnesium Direct Bilirubin AST Alkaline Phosphatase C-Reactive Protein Serum Total Protein Total Protein Albumin Prealbumin Nmnlw-1-Qnedocxqk Onwal-1-Gndqzspqe Gamma Globulins PEP Interpretation Triglycerides Urine pH Urine Creatinine Urine Total Protein Vancomycin Trough Digoxin Crossmatch 10/23/19 10/23/19 10/23/19 04:47 05:15 10:44 WBC 18.3 H RBC 2.33 L Hgb 7.0 L Hct 21.5 L MCHC RDW 16.2 H Plt Count Lymph % (Auto) 4.9 L Ashley % (Auto) 8.1 H Lymph # 0.9 L Ashley # 1.5 H Seg Neutrophils % 86.7 H Seg Neuts % (Manual) Lymphocytes % (Manual) Seg Neutrophils # 15.9 H Seg Neutrophils # Man Lymphocytes # (Manual) Monocytes # (Manual) POC ABG pH ABG pH POC ABG pCO2 POC ABG pO2 ABG pO2 68.9 L ABG HCO3 28.7 H ABG Base Excess 3.4 H ABG Hemoglobin 6.6 L Oxyhemoglobin 94.1 L Sodium Potassium Chloride Carbon Dioxide BUN Creatinine 0.5 L Glucose 165 H POC Glucose Calcium 7.4 L Phosphorus Magnesium Direct Bilirubin AST Alkaline Phosphatase C-Reactive Protein Serum Total Protein Total Protein Albumin Prealbumin Ueinb-5-Ogdwzhozs Salpc-0-Dwympsyyt Gamma Globulins PEP Interpretation Triglycerides Urine pH Urine Creatinine Urine Total Protein Vancomycin Trough Digoxin Crossmatch 10/23/19 10/23/19 10/23/19 10:44 11:46 11:50 WBC RBC Hgb Hct MCHC RDW Plt Count Lymph % (Auto) Ashley % (Auto) Lymph # Ashley # Seg Neutrophils % Seg Neuts % (Manual) Lymphocytes % (Manual) Seg Neutrophils # Seg Neutrophils # Man Lymphocytes # (Manual) Monocytes # (Manual) POC ABG pH ABG pH POC ABG pCO2 POC ABG pO2 ABG pO2 ABG HCO3 ABG Base Excess ABG Hemoglobin Oxyhemoglobin Sodium Potassium Chloride Carbon Dioxide BUN Creatinine Glucose POC Glucose 138 H Calcium Phosphorus Magnesium Direct Bilirubin 0.7 H AST Alkaline Phosphatase C-Reactive Protein Serum Total Protein Total Protein 4.5 L Albumin 1.2 L Prealbumin Uyzrx-5-Cjwlzucst Zwlwh-1-Qewbyjkyk Gamma Globulins PEP Interpretation Triglycerides Urine pH Urine Creatinine Urine Total Protein Vancomycin Trough Digoxin Crossmatch See Detail 10/23/19 10/24/19 10/24/19 17:53 00:07 05:05 WBC RBC Hgb Hct MCHC RDW Plt Count Lymph % (Auto) Ashley % (Auto) Lymph # Ashley # Seg Neutrophils % Seg Neuts % (Manual) Lymphocytes % (Manual) Seg Neutrophils # Seg Neutrophils # Man Lymphocytes # (Manual) Monocytes # (Manual) POC ABG pH ABG pH POC ABG pCO2 POC ABG pO2 ABG pO2 ABG HCO3 ABG Base Excess ABG Hemoglobin Oxyhemoglobin Sodium Potassium 3.5 L Chloride Carbon Dioxide BUN Creatinine 0.5 L Glucose 116 H POC Glucose 137 H 110 H Calcium 8.0 L Phosphorus Magnesium Direct Bilirubin AST Alkaline Phosphatase C-Reactive Protein Serum Total Protein Total Protein Albumin Prealbumin Mhhck-0-Dpqfjqrpd Bpgam-7-Ueesbgrjv Gamma Globulins PEP Interpretation Triglycerides Urine pH Urine Creatinine Urine Total Protein Vancomycin Trough Digoxin Crossmatch 10/24/19 10/24/19 10/24/19 05:05 11:56 13:00 WBC 13.0 H RBC 2.73 L Hgb 8.0 L Hct 24.2 L MCHC RDW 17.9 H Plt Count Lymph % (Auto) 7.0 L Ashley % (Auto) 9.5 H Lymph # 0.9 L Ashley # 1.2 H Seg Neutrophils % 82.7 H Seg Neuts % (Manual) Lymphocytes % (Manual) Seg Neutrophils # 10.7 H Seg Neutrophils # Man Lymphocytes # (Manual) Monocytes # (Manual) POC ABG pH ABG pH POC ABG pCO2 POC ABG pO2 ABG pO2 ABG HCO3 ABG Base Excess ABG Hemoglobin Oxyhemoglobin Sodium Potassium Chloride Carbon Dioxide BUN Creatinine Glucose POC Glucose 159 H Calcium Phosphorus Magnesium Direct Bilirubin AST Alkaline Phosphatase C-Reactive Protein Serum Total Protein Total Protein Albumin Prealbumin Qfual-8-Axhvtlfom Rqupq-9-Vortzntsd Gamma Globulins PEP Interpretation Triglycerides 216 H Urine pH Urine Creatinine Urine Total Protein Vancomycin Trough Digoxin Crossmatch 10/24/19 10/24/19 10/25/19 17:42 23:45 04:19 WBC RBC Hgb Hct MCHC RDW Plt Count Lymph % (Auto) Ashley % (Auto) Lymph # Ashley # Seg Neutrophils % Seg Neuts % (Manual) Lymphocytes % (Manual) Seg Neutrophils # Seg Neutrophils # Man Lymphocytes # (Manual) Monocytes # (Manual) POC ABG pH ABG pH POC ABG pCO2 POC ABG pO2 ABG pO2 ABG HCO3 ABG Base Excess ABG Hemoglobin Oxyhemoglobin Sodium 147 H Potassium Chloride Carbon Dioxide 33 H BUN Creatinine 0.5 L Glucose 111 H POC Glucose 120 H 116 H Calcium Phosphorus Magnesium Direct Bilirubin AST Alkaline Phosphatase C-Reactive Protein Serum Total Protein Total Protein 5.7 L D Albumin 2.5 L Prealbumin Nqsmk-5-Wzituovgn Cstri-1-Dmdmznjut Gamma Globulins PEP Interpretation Triglycerides 230 H Urine pH Urine Creatinine Urine Total Protein Vancomycin Trough Digoxin Crossmatch 10/25/19 10/25/19 10/25/19 04:19 05:31 12:20 WBC RBC 2.69 L Hgb 8.1 L Hct 23.9 L MCHC RDW 17.3 H Plt Count Lymph % (Auto) Ashley % (Auto) Lymph # Ashley # Seg Neutrophils % Seg Neuts % (Manual) Lymphocytes % (Manual) Seg Neutrophils # Seg Neutrophils # Man Lymphocytes # (Manual) Monocytes # (Manual) POC ABG pH ABG pH POC ABG pCO2 POC ABG pO2 ABG pO2 ABG HCO3 ABG Base Excess ABG Hemoglobin Oxyhemoglobin Sodium Potassium Chloride Carbon Dioxide BUN Creatinine Glucose POC Glucose 126 H 114 H Calcium Phosphorus Magnesium Direct Bilirubin AST Alkaline Phosphatase C-Reactive Protein Serum Total Protein Total Protein Albumin Prealbumin Geogm-2-Dkiqlpmxm Hryny-3-Xsgthklts Gamma Globulins PEP Interpretation Triglycerides Urine pH Urine Creatinine Urine Total Protein Vancomycin Trough Digoxin Crossmatch 10/25/19 10/25/19 10/26/19 18:30 23:09 06:15 WBC RBC Hgb Hct MCHC RDW Plt Count Lymph % (Auto) Ashley % (Auto) Lymph # Ashley # Seg Neutrophils % Seg Neuts % (Manual) Lymphocytes % (Manual) Seg Neutrophils # Seg Neutrophils # Man Lymphocytes # (Manual) Monocytes # (Manual) POC ABG pH ABG pH POC ABG pCO2 POC ABG pO2 ABG pO2 ABG HCO3 ABG Base Excess ABG Hemoglobin Oxyhemoglobin Sodium Potassium 3.5 L Chloride Carbon Dioxide BUN Creatinine 0.5 L Glucose 112 H POC Glucose 121 H 107 H Calcium 8.3 L Phosphorus Magnesium Direct Bilirubin AST Alkaline Phosphatase 148 H C-Reactive Protein Serum Total Protein Total Protein 5.9 L Albumin 2.4 L Prealbumin Sgkhh-0-Cgrvcutej Elzdx-9-Kclrvldxd Gamma Globulins PEP Interpretation Triglycerides Urine pH Urine Creatinine Urine Total Protein Vancomycin Trough Digoxin Crossmatch 10/26/19 10/26/19 10/26/19 06:15 12:21 17:35 WBC RBC Hgb Hct MCHC RDW Plt Count Lymph % (Auto) Ashley % (Auto) Lymph # Ashley # Seg Neutrophils % Seg Neuts % (Manual) Lymphocytes % (Manual) Seg Neutrophils # Seg Neutrophils # Man Lymphocytes # (Manual) Monocytes # (Manual) POC ABG pH ABG pH POC ABG pCO2 POC ABG pO2 ABG pO2 ABG HCO3 ABG Base Excess ABG Hemoglobin Oxyhemoglobin Sodium Potassium Chloride Carbon Dioxide BUN Creatinine Glucose POC Glucose 134 H 141 H Calcium Phosphorus Magnesium Direct Bilirubin AST Alkaline Phosphatase C-Reactive Protein Serum Total Protein Total Protein Albumin Prealbumin Lmdyy-3-Uitehpumw Poutt-1-Poinlippk Gamma Globulins PEP Interpretation Triglycerides 185 H Urine pH Urine Creatinine Urine Total Protein Vancomycin Trough Digoxin Crossmatch 10/26/19 10/27/19 10/27/19 Unknown 04:30 11:33 WBC RBC Hgb Hct MCHC RDW Plt Count Lymph % (Auto) Ashley % (Auto) Lymph # Ashley # Seg Neutrophils % Seg Neuts % (Manual) Lymphocytes % (Manual) Seg Neutrophils # Seg Neutrophils # Man Lymphocytes # (Manual) Monocytes # (Manual) POC ABG pH ABG pH POC ABG pCO2 POC ABG pO2 ABG pO2 ABG HCO3 ABG Base Excess ABG Hemoglobin Oxyhemoglobin Sodium Potassium 3.2 L Chloride Carbon Dioxide BUN 23 H Creatinine 0.6 L Glucose 130 H POC Glucose 131 H Calcium 7.9 L Phosphorus Magnesium Direct Bilirubin AST Alkaline Phosphatase C-Reactive Protein Serum Total Protein Total Protein Albumin Prealbumin Ogxnv-9-Ckfnnrdei Rejtw-0-Erymwmyaa Gamma Globulins PEP Interpretation Triglycerides Urine pH 9.0 H Urine Creatinine Urine Total Protein Vancomycin Trough Digoxin Crossmatch 10/27/19 10/28/19 10/28/19 17:45 05:25 05:49 WBC RBC 2.85 L Hgb 8.3 L Hct 26.8 L MCHC 31 L RDW 17.4 H Plt Count Lymph % (Auto) 8.9 L Ashley % (Auto) 14.3 H Lymph # 0.8 L Ashley # 1.3 H Seg Neutrophils % 76.5 H Seg Neuts % (Manual) Lymphocytes % (Manual) Seg Neutrophils # Seg Neutrophils # Man Lymphocytes # (Manual) Monocytes # (Manual) POC ABG pH ABG pH POC ABG pCO2 POC ABG pO2 ABG pO2 ABG HCO3 ABG Base Excess ABG Hemoglobin Oxyhemoglobin Sodium Potassium Chloride Carbon Dioxide BUN Creatinine Glucose POC Glucose 121 H 120 H Calcium Phosphorus Magnesium Direct Bilirubin AST Alkaline Phosphatase C-Reactive Protein Serum Total Protein Total Protein Albumin Prealbumin Cgxvk-5-Nmuuqvarw Nvxxu-5-Kvczkrsaf Gamma Globulins PEP Interpretation Triglycerides Urine pH Urine Creatinine Urine Total Protein Vancomycin Trough Digoxin Crossmatch 12/10/28/19 10/28/19 07:19 12:07 18:21 WBC RBC Hgb Hct MCHC RDW Plt Count Lymph % (Auto) Ashley % (Auto) Lymph # Ashley # Seg Neutrophils % Seg Neuts % (Manual) Lymphocytes % (Manual) Seg Neutrophils # Seg Neutrophils # Man Lymphocytes # (Manual) Monocytes # (Manual) POC ABG pH ABG pH POC ABG pCO2 POC ABG pO2 ABG pO2 ABG HCO3 ABG Base Excess ABG Hemoglobin Oxyhemoglobin Sodium Potassium Chloride Carbon Dioxide BUN 23 H Creatinine 0.5 L Glucose 129 H POC Glucose 127 H 130 H Calcium 8.0 L Phosphorus Magnesium Direct Bilirubin AST Alkaline Phosphatase C-Reactive Protein Serum Total Protein Total Protein Albumin Prealbumin Pegmg-4-Spfsycges Gfacy-2-Eqyjoyqum Gamma Globulins PEP Interpretation Triglycerides Urine pH Urine Creatinine Urine Total Protein Vancomycin Trough Digoxin Crossmatch 10/28/19 10/29/19 10/29/19 23:30 05:30 05:30 WBC 11.2 H RBC 3.36 L Hgb 9.7 L Hct 29.4 L MCHC RDW 16.7 H Plt Count Lymph % (Auto) Ashley % (Auto) 16.0 H Lymph # Ashley # 1.8 H Seg Neutrophils % 70.2 H Seg Neuts % (Manual) Lymphocytes % (Manual) Seg Neutrophils # 7.9 H Seg Neutrophils # Man Lymphocytes # (Manual) Monocytes # (Manual) POC ABG pH ABG pH POC ABG pCO2 POC ABG pO2 ABG pO2 ABG HCO3 ABG Base Excess ABG Hemoglobin Oxyhemoglobin Sodium Potassium Chloride Carbon Dioxide BUN 23 H Creatinine 0.5 L Glucose POC Glucose 130 H Calcium 8.3 L Phosphorus Magnesium Direct Bilirubin AST Alkaline Phosphatase C-Reactive Protein Serum Total Protein Total Protein Albumin Prealbumin Ojjez-4-Vxqsbhhlu Xtccb-0-Jjbpzuwhw Gamma Globulins PEP Interpretation Triglycerides Urine pH Urine Creatinine Urine Total Protein Vancomycin Trough Digoxin Crossmatch 10/29/19 10/29/19 10/29/19 05:52 13:10 18:02 WBC RBC Hgb Hct MCHC RDW Plt Count Lymph % (Auto) Ashley % (Auto) Lymph # Ashley # Seg Neutrophils % Seg Neuts % (Manual) Lymphocytes % (Manual) Seg Neutrophils # Seg Neutrophils # Man Lymphocytes # (Manual) Monocytes # (Manual) POC ABG pH ABG pH POC ABG pCO2 POC ABG pO2 ABG pO2 ABG HCO3 ABG Base Excess ABG Hemoglobin Oxyhemoglobin Sodium Potassium Chloride Carbon Dioxide BUN Creatinine Glucose POC Glucose 111 H 140 H 140 H Calcium Phosphorus Magnesium Direct Bilirubin AST Alkaline Phosphatase C-Reactive Protein Serum Total Protein Total Protein Albumin Prealbumin Ivrau-6-Dixtspjlm Joqxl-4-Unwtgkhvs Gamma Globulins PEP Interpretation Triglycerides Urine pH Urine Creatinine Urine Total Protein Vancomycin Trough Digoxin Crossmatch 10/29/19 10/30/19 10/30/19 23:58 01:05 05:15 WBC RBC Hgb Hct MCHC RDW Plt Count Lymph % (Auto) Ashley % (Auto) Lymph # Ashley # Seg Neutrophils % Seg Neuts % (Manual) Lymphocytes % (Manual) Seg Neutrophils # Seg Neutrophils # Man Lymphocytes # (Manual) Monocytes # (Manual) POC ABG pH ABG pH POC ABG pCO2 62.0 H POC ABG pO2 168 H ABG pO2 ABG HCO3 ABG Base Excess ABG Hemoglobin Oxyhemoglobin Sodium 147 H Potassium Chloride 107.8 H Carbon Dioxide BUN 26 H Creatinine 0.5 L Glucose 139 H POC Glucose 161 H Calcium Phosphorus Magnesium 2.40 H Direct Bilirubin AST Alkaline Phosphatase C-Reactive Protein Serum Total Protein Total Protein Albumin Prealbumin Lidrp-2-Rwjqteiyt Dzzgo-0-Zsymbglky Gamma Globulins PEP Interpretation Triglycerides Urine pH Urine Creatinine Urine Total Protein Vancomycin Trough Digoxin Crossmatch 10/30/19 10/30/19 10/30/19 05:15 06:32 09:44 WBC 13.8 H RBC 3.59 L Hgb 10.1 L Hct 32.4 L MCHC 31 L RDW 17.4 H Plt Count Lymph % (Auto) 11.2 L Ashley % (Auto) 13.6 H Lymph # Ashley # 1.9 H Seg Neutrophils % 75.1 H Seg Neuts % (Manual) Lymphocytes % (Manual) Seg Neutrophils # 10.4 H Seg Neutrophils # Man Lymphocytes # (Manual) Monocytes # (Manual) POC ABG pH ABG pH POC ABG pCO2 51.7 H POC ABG pO2 111 H ABG pO2 ABG HCO3 ABG Base Excess ABG Hemoglobin Oxyhemoglobin Sodium Potassium Chloride Carbon Dioxide BUN Creatinine Glucose POC Glucose 141 H Calcium Phosphorus Magnesium Direct Bilirubin AST Alkaline Phosphatase C-Reactive Protein Serum Total Protein Total Protein Albumin Prealbumin Rkctp-5-Kvnvcuwzl Rndqx-0-Txpjgozld Gamma Globulins PEP Interpretation Triglycerides Urine pH Urine Creatinine Urine Total Protein Vancomycin Trough Digoxin Crossmatch 10/30/19 10/31/19 10/31/19 18:10 04:18 04:18 WBC 11.7 H RBC 3.11 L Hgb 9.0 L Hct 27.9 L MCHC RDW 17.1 H Plt Count Lymph % (Auto) Ashley % (Auto) Lymph # Ashley # Seg Neutrophils % Seg Neuts % (Manual) Lymphocytes % (Manual) Seg Neutrophils # Seg Neutrophils # Man Lymphocytes # (Manual) Monocytes # (Manual) POC ABG pH ABG pH POC ABG pCO2 POC ABG pO2 ABG pO2 ABG HCO3 ABG Base Excess ABG Hemoglobin Oxyhemoglobin Sodium 148 H Potassium Chloride 108.7 H Carbon Dioxide BUN 37 H Creatinine 0.7 L Glucose 102 H POC Glucose 131 H Calcium Phosphorus Magnesium Direct Bilirubin AST Alkaline Phosphatase C-Reactive Protein Serum Total Protein Total Protein Albumin Prealbumin Zbrqb-7-Kpqnllvcs Vkpxl-2-Eokexbvbn Gamma Globulins PEP Interpretation Triglycerides Urine pH Urine Creatinine Urine Total Protein Vancomycin Trough Digoxin Crossmatch 10/31/19 10/31/19 10/31/19 11:32 12:55 18:10 WBC RBC Hgb Hct MCHC RDW Plt Count Lymph % (Auto) Ashley % (Auto) Lymph # Ashley # Seg Neutrophils % Seg Neuts % (Manual) Lymphocytes % (Manual) Seg Neutrophils # Seg Neutrophils # Man Lymphocytes # (Manual) Monocytes # (Manual) POC ABG pH ABG pH POC ABG pCO2 57.9 H POC ABG pO2 135 H ABG pO2 ABG HCO3 ABG Base Excess ABG Hemoglobin Oxyhemoglobin Sodium Potassium Chloride Carbon Dioxide BUN Creatinine Glucose POC Glucose 120 H Calcium Phosphorus Magnesium Direct Bilirubin AST Alkaline Phosphatase C-Reactive Protein Serum Total Protein Total Protein Albumin Prealbumin Ngbmb-0-Twlezfhxe Nxjud-8-Yiszrwszr Gamma Globulins PEP Interpretation Triglycerides Urine pH Urine Creatinine Urine Total Protein Vancomycin Trough 41.7 H Digoxin Crossmatch 10/31/19 11/01/19 11/01/19 23:08 05:30 05:30 WBC 14.6 H RBC 3.13 L Hgb 8.9 L Hct 27.7 L MCHC RDW 17.0 H Plt Count Lymph % (Auto) Ashley % (Auto) Lymph # Ashley # Seg Neutrophils % Seg Neuts % (Manual) Lymphocytes % (Manual) Seg Neutrophils # Seg Neutrophils # Man Lymphocytes # (Manual) Monocytes # (Manual) POC ABG pH ABG pH POC ABG pCO2 POC ABG pO2 ABG pO2 ABG HCO3 ABG Base Excess ABG Hemoglobin Oxyhemoglobin Sodium 149 H Potassium Chloride 109.0 H Carbon Dioxide BUN 26 H Creatinine 0.7 L Glucose 129 H POC Glucose 109 H Calcium Phosphorus Magnesium Direct Bilirubin AST Alkaline Phosphatase C-Reactive Protein Serum Total Protein Total Protein Albumin Prealbumin Nvabd-6-Dxrziyoub Aqpnf-4-Jjrqjlqcw Gamma Globulins PEP Interpretation Triglycerides Urine pH Urine Creatinine Urine Total Protein Vancomycin Trough Digoxin Crossmatch 11/01/19 11/01/19 11/01/19 06:09 06:10 11:52 WBC RBC Hgb Hct MCHC RDW Plt Count Lymph % (Auto) Ashley % (Auto) Lymph # Ashley # Seg Neutrophils % Seg Neuts % (Manual) Lymphocytes % (Manual) Seg Neutrophils # Seg Neutrophils # Man Lymphocytes # (Manual) Monocytes # (Manual) POC ABG pH ABG pH POC ABG pCO2 51.3 H POC ABG pO2 71 L ABG pO2 ABG HCO3 ABG Base Excess ABG Hemoglobin Oxyhemoglobin Sodium Potassium Chloride Carbon Dioxide BUN Creatinine Glucose POC Glucose 113 H 106 H Calcium Phosphorus Magnesium Direct Bilirubin AST Alkaline Phosphatase C-Reactive Protein Serum Total Protein Total Protein Albumin Prealbumin Stagg-6-Qwssplaje Xpjnl-1-Awgbedxap Gamma Globulins PEP Interpretation Triglycerides Urine pH Urine Creatinine Urine Total Protein Vancomycin Trough Digoxin Crossmatch 11/01/19 11/02/19 11/02/19 18:18 03:40 03:40 WBC RBC 2.36 L Hgb 7.2 L Hct 20.8 L D MCHC 35 H RDW 16.8 H Plt Count Lymph % (Auto) Ashley % (Auto) Lymph # Ashley # Seg Neutrophils % Seg Neuts % (Manual) Lymphocytes % (Manual) Seg Neutrophils # Seg Neutrophils # Man Lymphocytes # (Manual) Monocytes # (Manual) POC ABG pH ABG pH POC ABG pCO2 POC ABG pO2 ABG pO2 ABG HCO3 ABG Base Excess ABG Hemoglobin Oxyhemoglobin Sodium 157 H D Potassium 3.0 L D Chloride 117.2 H Carbon Dioxide BUN 23 H Creatinine 0.6 L Glucose 101 H POC Glucose 120 H Calcium 6.4 L D Phosphorus Magnesium Direct Bilirubin AST Alkaline Phosphatase C-Reactive Protein Serum Total Protein Total Protein Albumin Prealbumin Fszuf-0-Qfpgnicch Wjfzl-3-Tixelrvxf Gamma Globulins PEP Interpretation Triglycerides Urine pH Urine Creatinine Urine Total Protein Vancomycin Trough Digoxin Crossmatch 11/02/19 11/02/19 11/02/19 04:48 05:30 12:43 WBC RBC Hgb Hct MCHC RDW Plt Count Lymph % (Auto) Ashley % (Auto) Lymph # Ashley # Seg Neutrophils % Seg Neuts % (Manual) Lymphocytes % (Manual) Seg Neutrophils # Seg Neutrophils # Man Lymphocytes # (Manual) Monocytes # (Manual) POC ABG pH ABG pH POC ABG pCO2 50.1 H POC ABG pO2 74 L ABG pO2 ABG HCO3 ABG Base Excess ABG Hemoglobin Oxyhemoglobin Sodium 149 H D Potassium Chloride 110.0 H Carbon Dioxide BUN 23 H Creatinine 0.6 L Glucose POC Glucose 109 H Calcium 8.1 L D Phosphorus Magnesium 2.40 H Direct Bilirubin AST Alkaline Phosphatase C-Reactive Protein Serum Total Protein Total Protein Albumin Prealbumin Ethih-3-Rmsckzbqm Vtixz-0-Dmkeldtha Gamma Globulins PEP Interpretation Triglycerides Urine pH Urine Creatinine Urine Total Protein Vancomycin Trough Digoxin Crossmatch 11/03/19 11/03/19 11/03/19 03:42 03:42 04:13 WBC RBC 2.93 L Hgb 8.5 L Hct 25.8 L MCHC RDW 16.9 H Plt Count Lymph % (Auto) Ashley % (Auto) Lymph # Ashley # Seg Neutrophils % Seg Neuts % (Manual) Lymphocytes % (Manual) Seg Neutrophils # Seg Neutrophils # Man Lymphocytes # (Manual) Monocytes # (Manual) POC ABG pH 7.540 H ABG pH POC ABG pCO2 POC ABG pO2 51 L ABG pO2 ABG HCO3 ABG Base Excess ABG Hemoglobin Oxyhemoglobin Sodium 147 H Potassium 3.5 L D Chloride 108.6 H Carbon Dioxide BUN Creatinine 0.6 L Glucose 109 H POC Glucose Calcium 8.3 L Phosphorus Magnesium Direct Bilirubin AST Alkaline Phosphatase C-Reactive Protein Serum Total Protein Total Protein Albumin Prealbumin Cadte-9-Qhjnpxsou Nzxam-2-Cpkpzgifh Gamma Globulins PEP Interpretation Triglycerides Urine pH Urine Creatinine Urine Total Protein Vancomycin Trough Digoxin Crossmatch 11/03/19 11/03/19 11/03/19 04:28 12:04 23:02 WBC RBC Hgb Hct MCHC RDW Plt Count Lymph % (Auto) Ashley % (Auto) Lymph # Ashley # Seg Neutrophils % Seg Neuts % (Manual) Lymphocytes % (Manual) Seg Neutrophils # Seg Neutrophils # Man Lymphocytes # (Manual) Monocytes # (Manual) POC ABG pH ABG pH POC ABG pCO2 45.4 H POC ABG pO2 ABG pO2 ABG HCO3 ABG Base Excess ABG Hemoglobin Oxyhemoglobin Sodium Potassium Chloride Carbon Dioxide BUN Creatinine Glucose POC Glucose 109 H 111 H Calcium Phosphorus Magnesium Direct Bilirubin AST Alkaline Phosphatase C-Reactive Protein Serum Total Protein Total Protein Albumin Prealbumin Otwcu-3-Ritucfttp Bjlgx-0-Ldtjyogbu Gamma Globulins PEP Interpretation Triglycerides Urine pH Urine Creatinine Urine Total Protein Vancomycin Trough Digoxin Crossmatch 11/04/19 11/04/19 11/04/19 05:00 05:00 05:19 WBC RBC 2.96 L Hgb 8.6 L Hct 25.5 L MCHC RDW 16.7 H Plt Count Lymph % (Auto) Ashley % (Auto) Lymph # Ashley # Seg Neutrophils % Seg Neuts % (Manual) Lymphocytes % (Manual) Seg Neutrophils # Seg Neutrophils # Man Lymphocytes # (Manual) Monocytes # (Manual) POC ABG pH ABG pH POC ABG pCO2 POC ABG pO2 ABG pO2 ABG HCO3 ABG Base Excess ABG Hemoglobin Oxyhemoglobin Sodium Potassium 3.5 L Chloride Carbon Dioxide BUN Creatinine 0.5 L Glucose 111 H POC Glucose 106 H Calcium 8.1 L Phosphorus Magnesium Direct Bilirubin AST Alkaline Phosphatase C-Reactive Protein Serum Total Protein Total Protein Albumin Prealbumin Rltfh-7-Psvhsuzaj Scztp-6-Axpxzkwrl Gamma Globulins PEP Interpretation Triglycerides Urine pH Urine Creatinine Urine Total Protein Vancomycin Trough Digoxin Crossmatch 11/04/19 11/05/19 11/05/19 12:40 00:28 04:19 WBC 12.4 H RBC 2.98 L Hgb 8.5 L Hct 25.5 L MCHC RDW 16.6 H Plt Count Lymph % (Auto) Ashley % (Auto) Lymph # Ashley # Seg Neutrophils % Seg Neuts % (Manual) Lymphocytes % (Manual) Seg Neutrophils # Seg Neutrophils # Man Lymphocytes # (Manual) Monocytes # (Manual) POC ABG pH ABG pH POC ABG pCO2 POC ABG pO2 ABG pO2 ABG HCO3 ABG Base Excess ABG Hemoglobin Oxyhemoglobin Sodium Potassium Chloride Carbon Dioxide BUN Creatinine Glucose POC Glucose 109 H 132 H Calcium Phosphorus Magnesium Direct Bilirubin AST Alkaline Phosphatase C-Reactive Protein Serum Total Protein Total Protein Albumin Prealbumin Uzeul-7-Tlhlrsnnw Gsahu-8-Ytdxggygn Gamma Globulins PEP Interpretation Triglycerides Urine pH Urine Creatinine Urine Total Protein Vancomycin Trough Digoxin Crossmatch 11/05/19 11/05/19 11/05/19 04:19 05:40 13:14 WBC RBC Hgb Hct MCHC RDW Plt Count Lymph % (Auto) Ashley % (Auto) Lymph # Ashley # Seg Neutrophils % Seg Neuts % (Manual) Lymphocytes % (Manual) Seg Neutrophils # Seg Neutrophils # Man Lymphocytes # (Manual) Monocytes # (Manual) POC ABG pH ABG pH POC ABG pCO2 POC ABG pO2 ABG pO2 ABG HCO3 ABG Base Excess ABG Hemoglobin Oxyhemoglobin Sodium Potassium 3.4 L Chloride Carbon Dioxide BUN Creatinine 0.4 L Glucose 106 H POC Glucose 136 H 145 H Calcium 8.2 L Phosphorus Magnesium Direct Bilirubin AST Alkaline Phosphatase C-Reactive Protein Serum Total Protein Total Protein Albumin Prealbumin Bsxsh-2-Slsxdkorz Vgfus-4-Uxjdmqfhm Gamma Globulins PEP Interpretation Triglycerides Urine pH Urine Creatinine Urine Total Protein Vancomycin Trough Digoxin Crossmatch 11/05/19 11/05/19 11/06/19 18:29 23:42 05:00 WBC 12.2 H RBC 2.89 L Hgb 8.2 L Hct 24.9 L MCHC RDW 16.4 H Plt Count Lymph % (Auto) Ashley % (Auto) Lymph # Ashley # Seg Neutrophils % Seg Neuts % (Manual) Lymphocytes % (Manual) Seg Neutrophils # Seg Neutrophils # Man Lymphocytes # (Manual) Monocytes # (Manual) POC ABG pH ABG pH POC ABG pCO2 POC ABG pO2 ABG pO2 ABG HCO3 ABG Base Excess ABG Hemoglobin Oxyhemoglobin Sodium Potassium Chloride Carbon Dioxide BUN Creatinine Glucose POC Glucose 138 H 117 H Calcium Phosphorus Magnesium Direct Bilirubin AST Alkaline Phosphatase C-Reactive Protein Serum Total Protein Total Protein Albumin Prealbumin Wwmkr-5-Fmdsszyrm Xalns-6-Hphrnvmta Gamma Globulins PEP Interpretation Triglycerides Urine pH Urine Creatinine Urine Total Protein Vancomycin Trough Digoxin Crossmatch 11/06/19 11/06/19 11/06/19 05:00 05:22 17:39 WBC RBC Hgb Hct MCHC RDW Plt Count Lymph % (Auto) Ashley % (Auto) Lymph # Ashley # Seg Neutrophils % Seg Neuts % (Manual) Lymphocytes % (Manual) Seg Neutrophils # Seg Neutrophils # Man Lymphocytes # (Manual) Monocytes # (Manual) POC ABG pH ABG pH POC ABG pCO2 POC ABG pO2 ABG pO2 ABG HCO3 ABG Base Excess ABG Hemoglobin Oxyhemoglobin Sodium Potassium Chloride Carbon Dioxide BUN Creatinine 0.4 L Glucose 114 H POC Glucose 121 H 110 H Calcium 8.2 L Phosphorus Magnesium Direct Bilirubin AST Alkaline Phosphatase C-Reactive Protein Serum Total Protein Total Protein Albumin Prealbumin Ztadr-7-Ynfgctijm Epeoy-7-Jnihbxjch Gamma Globulins PEP Interpretation Triglycerides Urine pH Urine Creatinine Urine Total Protein Vancomycin Trough Digoxin Crossmatch 11/06/19 11/07/19 11/07/19 23:29 04:06 04:06 WBC 13.0 H RBC 2.80 L Hgb 7.9 L Hct 24.0 L MCHC RDW 16.5 H Plt Count Lymph % (Auto) 7.0 L Ashley % (Auto) Lymph # 0.9 L Ashley # Seg Neutrophils % 86.3 H Seg Neuts % (Manual) Lymphocytes % (Manual) Seg Neutrophils # 11.2 H Seg Neutrophils # Man Lymphocytes # (Manual) Monocytes # (Manual) POC ABG pH ABG pH POC ABG pCO2 POC ABG pO2 ABG pO2 ABG HCO3 ABG Base Excess ABG Hemoglobin Oxyhemoglobin Sodium Potassium Chloride Carbon Dioxide BUN Creatinine 0.4 L Glucose 110 H POC Glucose 113 H Calcium 8.2 L Phosphorus Magnesium Direct Bilirubin AST Alkaline Phosphatase C-Reactive Protein Serum Total Protein Total Protein Albumin Prealbumin Vehyl-0-Xuihjxlys Ajtqf-8-Qbbkmqhjd Gamma Globulins PEP Interpretation Triglycerides Urine pH Urine Creatinine Urine Total Protein Vancomycin Trough Digoxin Crossmatch 11/07/19 11/07/19 11/07/19 05:43 12:47 18:19 WBC RBC Hgb Hct MCHC RDW Plt Count Lymph % (Auto) Ashley % (Auto) Lymph # Ashley # Seg Neutrophils % Seg Neuts % (Manual) Lymphocytes % (Manual) Seg Neutrophils # Seg Neutrophils # Man Lymphocytes # (Manual) Monocytes # (Manual) POC ABG pH ABG pH POC ABG pCO2 POC ABG pO2 ABG pO2 ABG HCO3 ABG Base Excess ABG Hemoglobin Oxyhemoglobin Sodium Potassium Chloride Carbon Dioxide BUN Creatinine Glucose POC Glucose 114 H 120 H 112 H Calcium Phosphorus Magnesium Direct Bilirubin AST Alkaline Phosphatase C-Reactive Protein Serum Total Protein Total Protein Albumin Prealbumin Aprsf-5-Ogaofcxag Brqfb-1-Czoyzzqxo Gamma Globulins PEP Interpretation Triglycerides Urine pH Urine Creatinine Urine Total Protein Vancomycin Trough Digoxin Crossmatch 11/08/19 11/08/19 11/08/19 03:45 03:45 11:43 WBC 12.7 H RBC 2.82 L Hgb 7.8 L Hct 24.4 L MCHC RDW 16.5 H Plt Count Lymph % (Auto) 9.4 L Ashley % (Auto) Lymph # Ashley # 0.9 H Seg Neutrophils % 83.0 H Seg Neuts % (Manual) Lymphocytes % (Manual) Seg Neutrophils # 10.6 H Seg Neutrophils # Man Lymphocytes # (Manual) Monocytes # (Manual) POC ABG pH ABG pH POC ABG pCO2 POC ABG pO2 ABG pO2 ABG HCO3 ABG Base Excess ABG Hemoglobin Oxyhemoglobin Sodium Potassium Chloride Carbon Dioxide BUN Creatinine 0.4 L Glucose 107 H POC Glucose 118 H Calcium Phosphorus Magnesium Direct Bilirubin AST Alkaline Phosphatase C-Reactive Protein Serum Total Protein Total Protein Albumin Prealbumin Egshr-1-Xtycldvys Ddbbj-4-Tvhcwuyfc Gamma Globulins PEP Interpretation Triglycerides Urine pH Urine Creatinine Urine Total Protein Vancomycin Trough Digoxin Crossmatch Chest x-ray: report reviewed, image reviewed (increased bilateral pleural effusions; no PTX)
[2019-11-09] MEDS: HYDROmorphone 2 MG/1 ML INJ IV PRN ×4 (02:11→17:38)
[2019-11-09] MEDS: IPRATROPIUM/ALBUTEROL SULFATE 3 ML AMPUL.NEB IH SCH ×4 (03:01→19:28)
[2019-11-09] MEDS: MEROPENEM/NS 1 GRAM/100 ML 1 GRAM/100 ML BAG IV SCH ×3 (03:57→09:56)
[2019-11-09] MEDS: INSULIN LISPRO 100 UNIT/ML SUB-Q SCH ×3 (05:09→18:09)
[2019-11-09] MEDS: METOPROLOL TARTRATE 50 MG TAB PO SCH ×3 (05:53→22:16)
[2019-11-09] MEDS: ARFORMOTEROL 15 MCG/2 ML NEBU IH SCH ×2 (08:03→19:28)
[2019-11-09] MEDS: BUDESONIDE 0.5 MG/2 ML NEBU IH SCH ×2 (08:03→19:28)
[2019-11-09] MEDS: LISINOPRIL 20 MG TAB PO SCH (09:55)
[2019-11-09] MEDS: PANTOPRAZOLE 40 MG INJ IV SCH (09:55)
[2019-11-09] MEDS: CITALOPRAM 20 MG TAB PO SCH (09:56)
[2019-11-09] MEDS: AMIODARONE 200 MG TAB PO SCH (09:56)
[2019-11-09] MEDS: MICAFUNGIN 100 MG in SODIUM CHLORIDE 0.9% 100 ML IV SCH (09:56)
--- NOTE | 2019-11-09 10:05 | Progress Note ---
Assessment and Plan Cultures 10/10/2019 surgical culture: No growth at 72 hours 10/13/2019 tracheal aspirate culture: No growth 10/13/2019 peritoneal fluid: Enterococcus species (S to Penicillin, Vancomycin) 10/15/2019 blood culture: no growth 10/26/2019 urine culture: no growth thus far 10/26/2019 blood culture: no growth at 24 hours Assessment: 54 yo M PMhx CAD, COPD, recent complicated course of bowel perforation after a colonoscopy admitted with surgical site dehiscence of the fascia. Now with: 1. Acute sepsis - leukocytosis stable, no fever. Most likely secondary to fluid collection/abscess in the abdomen and anastomotic leak. 2. Intra-abdominal infection from anastomotic leak - s/p ex lap with closure of abdominal wall and wound vac placement (10/05/2019); s/p Re-exploration, washout, transection of colon, Abthera placement - 10/13/2019. s/p re- exploration and colostomy creation on 10/16/2019, intra-operatively was found to have "Small amount of continued leak from the old anastomotic site. Some contamination still present. Bowel was all viable". Back on OR on 10/19/2019, findings "small leak from stump staple line". OR again on 10/22/2019 for: Abdominal washout. Closure of abdominal fascia. Wound vac placement. Findings, "contamination from the sigmoid stump closure site". New drain placed 10/30 with stool-like output. Repeat CT on 11/01 shows increasing left pneumothorax, LLL consolidation, edson effusions. 3. COPD, acute respiratory failure: on the vent. s/p extubation. On NC O2. 4. Penicillin allergy - likely not a true allergy, reviewed EMR for previous exposure to PCNs, patient received several days of Zosyn in 2018 without issue. 5. Left pneumothorax s/p chest tube placement on 10/30/2019. Recs: stop Meropenem and Micafungin D14 of 14 monitor leukocytosis off antibiotics please remove de jesus and monitor with serial bladder scanning Discussed with Dr Krause will follow. I am covering this weekend Yuki Lorenzo MD [facility] ([facility]) Office [phone] Subjective Date of service: 11/09/19 Principal diagnosis: acute renal failure Interval history: Alert on NC O2 no fever tmax 99.9 Objective - Exam Narrative Exam: General appearance: Alert in NAD on NC O2 Eyes: anicteric sclerae, moist conjunctivae; no lid-lag; PERRLA HENT: Atraumatic; oropharynx clear Lungs: CTA +left CT in place CV: RRR no murmur Abdomen: Soft, surg wound w abthera ostomy, susan drain Extremities: edson leg edema Skin: +scrotal edema Psych: no agitated Neuro: alert follows commands +de jesus - Constitutional Vitals: Vital Signs Temp Pulse Resp BP Pulse Ox 99.9 F H 85 13 126/63 94 11/09/19 08:00 11/09/19 09:55 11/09/19 09:01 11/09/19 09:55 11/09/19 09:01 Temperature -Last 24 Hours Temperature 99.9 F Temperature 97.9 F Temperature 98.9 F Temperature 98.4 F Temperature 98.0 F Temperature 98.0 F Temperature 97.3 F - Labs CBC & Chem 7: 11/08/19 03:45 11/08/19 03:45 Labs: Abnormal lab results 11/08/19 11/08/19 Range/Units 11:43 23:45 POC Glucose 118 H 113 H (70-105)
--- NOTE | 2019-11-09 11:19 | Progress Note ---
Assessment and Plan - Patient Problems (1) Dehiscence of closure of fascia, superficial or muscular Current Visit: No Status: Acute Qualifiers: Encounter type: initial encounter Qualified Code(s): T81.32XA - Disruption of internal operation (surgical) wound, not elsewhere classified, initial encounter Plan to address problem: Pt stable. s/p ex lap with closure of abdominal wall and wound vac placement (10/05) - POD#35; s/p Re-exploration, washout, transection of colon, Abthera placement - 10/13 - POD#27; s/p abd washout, partial omentectomy, partial colectomy with colostomy - 10/16 POD#24. s/p abd washout, feeding tube placement, AbThera placement - 10/19 - POD#21; Abdominal washout and closure - 10/22 - POD#18 Patient appears stable. WBC stable, but no fevers Rec: 1) Neuro - self-extubated 11/04. 2) CV - BP normal today 3) Resp - On NC. Small bore CT on left. Mgmt per ICU team. Respiratory rate much better. 4) GI - Ostomy looks good. Functioning. Sump drains - Right drain was accidentally pulled out (10/30). Left one is still functioning. New small bore catheter placed 10/30 - moderate output after drain was stripped. Appears like stool. Plan to connect both to wall suction - continuous. Output slowly trending down. Wound Vac - wound looked good on last check. continue wound vac. Ostomy - functioning now. Gastric Port - Appears to be tolerating the clamping. Residuals are minimal. Ok to give water flushes in place of IVFs Rectal tube (malecot) - placed to help decompress rectosigmoid area. Ok if there is drainage around the tube. Irrigation BID. Will consider removal the week of Nov 26. 5) - BUN/Cr stable. 6) ID - Abx per ID. Enterococcus on cultures. If patient has worsening labs/vitals, then rescan and place additional drains as appropriate. Discussed Abx plan with Dr. Lorenzo. I am ok with trial off Abx, 7) Nutrition - Tube feeds at goal. Would consider Speech therapy eval again for swallowing. Ok to give free water flushes via gastric port. 8) DVT prophylaxis - SCDs. Lovenox 9) Family -no family at bedside. 10) PT - will need rehab. Note: Spoke with [facility] surgeon on 11/01/19 about possible transfer. They reviewed the notes that were sent and we discussed the case. They felt that they had nothing else to offer. They agreed with our management. Also agreed that another exploration should not be done. If needed, additional drains can be placed. They did suggest putting a Malecot tube in the rectum to decompress that area. (That has been done). This conversation was communicated to the . Please call with questions. Subjective Date of service: 11/09/19 Patient Reports: Positive: no new complaints, bowel movement (nurse reports good BM from rectum), other (nurse reports some leaking from inferior aspect of wound vac) Objective Vital Signs - 12hr 11/08/19 11/08/19 11/08/19 23:19 23:25 23:30 Temperature 98.9 F Pulse Rate 77 Pulse Rate [ Anterior Bilateral Throughout] Pulse Rate [ 80 From Monitor] Respiratory 17 20 Rate Respiratory Rate [Anterior Bilateral Throughout] Blood Pressure 133/63 O2 Sat by Pulse 96 94 Oximetry 11/09/19 11/09/19 11/09/19 00:00 00:05 00:30 Temperature Pulse Rate 78 79 77 Pulse Rate [ Anterior Bilateral Throughout] Pulse Rate [ From Monitor] Respiratory 17 22 22 Rate Respiratory Rate [Anterior Bilateral Throughout] Blood Pressure 130/72 130/72 128/66 O2 Sat by Pulse 95 96 94 Oximetry 11/09/19 11/09/19 11/09/19 01:00 01:25 01:30 Temperature Pulse Rate 78 85 79 Pulse Rate [ Anterior Bilateral Throughout] Pulse Rate [ 80 From Monitor] Respiratory 22 19 25 H Rate Respiratory Rate [Anterior Bilateral Throughout] Blood Pressure 128/68 130/66 O2 Sat by Pulse 93 95 91 Oximetry 11/09/19 11/09/19 11/09/19 02:00 02:11 02:30 Temperature Pulse Rate 82 81 Pulse Rate [ Anterior Bilateral Throughout] Pulse Rate [ From Monitor] Respiratory 25 H 25 H 20 Rate Respiratory Rate [Anterior Bilateral Throughout] Blood Pressure 120/72 119/68 O2 Sat by Pulse 95 91 Oximetry 11/09/19 11/09/19 11/09/19 02:41 03:00 03:02 Temperature Pulse Rate 81 Pulse Rate [ 85 Anterior Bilateral Throughout] Pulse Rate [ From Monitor] Respiratory 17 16 Rate Respiratory 21 Rate [Anterior Bilateral Throughout] Blood Pressure 128/55 O2 Sat by Pulse 93 Oximetry 11/09/19 11/09/19 11/09/19 03:16 03:25 03:30 Temperature 97.9 F Pulse Rate 81 85 Pulse Rate [ Anterior Bilateral Throughout] Pulse Rate [ From Monitor] Respiratory 19 20 Rate Respiratory Rate [Anterior Bilateral Throughout] Blood Pressure 120/60 O2 Sat by Pulse 95 91 Oximetry 11/09/19 11/09/19 11/09/19 04:00 04:30 05:00 Temperature Pulse Rate 84 82 81 Pulse Rate [ Anterior Bilateral Throughout] Pulse Rate [ From Monitor] Respiratory 24 23 21 Rate Respiratory Rate [Anterior Bilateral Throughout] Blood Pressure 125/63 122/65 122/67 O2 Sat by Pulse 91 94 94 Oximetry 11/09/19 11/09/19 11/09/19 05:30 05:53 06:00 Temperature Pulse Rate 81 83 82 Pulse Rate [ Anterior Bilateral Throughout] Pulse Rate [ From Monitor] Respiratory 17 21 Rate Respiratory Rate [Anterior Bilateral Throughout] Blood Pressure 133/68 133/68 133/71 O2 Sat by Pulse 93 95 Oximetry 11/09/19 11/09/19 11/09/19 06:30 07:00 07:31 Temperature Pulse Rate 75 75 86 Pulse Rate [ Anterior Bilateral Throughout] Pulse Rate [ From Monitor] Respiratory 22 24 23 Rate Respiratory Rate [Anterior Bilateral Throughout] Blood Pressure 133/77 137/66 137/66 O2 Sat by Pulse 96 92 96 Oximetry 11/09/19 11/09/19 11/09/19 07:50 08:00 08:22 Temperature 99.9 F H Pulse Rate 80 Pulse Rate [ 82 Anterior Bilateral Throughout] Pulse Rate [ From Monitor] Respiratory 14 16 Rate Respiratory 20 Rate [Anterior Bilateral Throughout] Blood Pressure 126/71 O2 Sat by Pulse 93 94 Oximetry 11/09/19 11/09/19 11/09/19 08:30 09:01 09:30 Temperature Pulse Rate 84 94 H 85 Pulse Rate [ Anterior Bilateral Throughout] Pulse Rate [ From Monitor] Respiratory 19 13 12 Rate Respiratory Rate [Anterior Bilateral Throughout] Blood Pressure 127/65 108/39 126/63 O2 Sat by Pulse 92 94 93 Oximetry 11/09/19 11/09/19 11/09/19 09:55 10:00 10:30 Temperature Pulse Rate 85 86 87 Pulse Rate [ Anterior Bilateral Throughout] Pulse Rate [ From Monitor] Respiratory 19 17 Rate Respiratory Rate [Anterior Bilateral Throughout] Blood Pressure 126/63 127/67 123/63 O2 Sat by Pulse 96 93 Oximetry 11/09/19 11:00 Temperature Pulse Rate 83 Pulse Rate [ Anterior Bilateral Throughout] Pulse Rate [ From Monitor] Respiratory 17 Rate Respiratory Rate [Anterior Bilateral Throughout] Blood Pressure 126/72 O2 Sat by Pulse 95 Oximetry - General physical appearance no distress, no pain, obese - Respiratory normal expansion, normal respiratory effort - Abdomen soft, not tender, not distended - Labs 11/08/19 03:45 11/08/19 03:45
--- NOTE | 2019-11-09 12:17 | Progress Note ---
Assessment and Plan Imp: 1. Colon perforation/peritonitis/anastamotic leak s/p multiple surgeries 2. Sepsis 3. Acute respiratory failure, hypoxia 4. Obesity 5. KALI 6. Centrilobular emphysema, severe 7. Chronic nicotine dependence, cigarettes 8. HTN 9. CAD s/p PCI 10. Ischemic cardiomyopathy 11. PTX on L Rec: 1. ABX per ID 2. Wean O2 to keep sats 88% or > 3. Cont. current nebs 4. Optimize nutrition; monitor elytes; agree with ST re-eval. of swallowing prior to taking PO 5. DVT PPx 6. Stop smoking 7. Chest tube with no air leak and no significant output; no obvious PTX on most recent CXR; will see if IR can remove today Plan of care reviewed with patient/, they understand/agree Subjective Date of service: 11/09/19 Principal diagnosis: acute renal failure Interval history: No events. On nasal cannula. Arousable. Denies SOB or pain currently. Hungry. Active Medications Acetaminophen (Tylenol) 650 mg FEEDTUBE Q4H PRN PRN Reason: Fever >100.5 Last Admin: 11/03/19 16:03 Dose: 650 mg Documented by: Acetaminophen/Hydrocodone Bitart (Hydrocodone/Apap 7.5-325) 7.5 mg FEEDTUBE Q4H PRN PRN Reason: Pain, Moderate (4-6) Albuterol/Ipratropium (Duoneb *Not For Prn Use*) 1 ampul IH Q6HRT [facility] Last Admin: 11/09/19 08:03 Dose: 1 ampul Documented by: Amiodarone HCl (Cordarone) 200 mg PO QDAY [facility] Last Admin: 11/09/19 09:56 Dose: 200 mg Documented by: Lipase/Protease/Amylase (Shaggy Moreno 10,500 Unit) 1 each FEEDTUBE PRN PRN PRN Reason: For Clogged Feeding Tube Arformoterol Tartrate (Brovana Nebu) 15 mcg IH Q12HRT [facility] Last Admin: 11/09/19 08:03 Dose: 15 mcg Documented by: Budesonide (Pulmicort) 0.5 mg IH Q12HRT [facility] Last Admin: 11/09/19 08:03 Dose: 0.5 mg Documented by: Citalopram Hydrobromide (Celexa) 20 mg PO DAILY [facility] Last Admin: 11/09/19 09:56 Dose: 20 mg Documented by: Enoxaparin Sodium (Enoxaparin) 40 mg SUB-Q QDAY@2200 [facility] Last Admin: 11/08/19 22:06 Dose: 40 mg Documented by: Haloperidol Lactate (Haldol) 5 mg IV Q6H PRN PRN Reason: Agitation Last Admin: 11/03/19 21:22 Dose: 5 mg Documented by: Hydralazine HCl (Apresoline) 10 mg IV Q4HR PRN PRN Reason: Hypertension Last Admin: 11/02/19 15:34 Dose: 10 mg Documented by: Hydromorphone HCl (Dilaudid) 2 mg IV Q4H PRN PRN Reason: Pain , Severe (7-10) Last Admin: 11/09/19 07:50 Dose: 2 mg Documented by: Insulin Human Lispro (Humalog) 0 unit SUB-Q Q6HR [facility]; Protocol Last Admin: 11/09/19 05:09 Dose: Not Given Documented by: Lisinopril (Zestril) 20 mg PO QDAY [facility] Last Admin: 11/09/19 09:55 Dose: 20 mg Documented by: Metoprolol Tartrate (Metoprolol) 2.5 mg IV Q4HR PRN PRN Reason: HR >130 Last Admin: 11/01/19 18:00 Dose: 2.5 mg Documented by: Metoprolol Tartrate (Metoprolol) 50 mg PO Q8HR [facility] Last Admin: 11/09/19 05:53 Dose: 50 mg Documented by: Multi-Ingred Cream/Lotion/Oil/Oint (Artificial Tears Ophth Oint) 1 applic OU Q4HR PRN PRN Reason: Dry Eye(s) Pantoprazole Sodium (Protonix) 40 mg IV QDAY [facility] Last Admin: 11/09/19 09:55 Dose: 40 mg Documented by: Simple Syrup (Simple Syrup) 15 ml FEEDTUBE PRN PRN PRN Reason: Hypoglycemia Simple Syrup (Simple Syrup) 30 ml FEEDTUBE PRN PRN PRN Reason: Hypoglycemia Sodium Bicarbonate (Sodium Bicarbonate) 325 mg FEEDTUBE PRN PRN PRN Reason: For Clogged Feeding Tube Sodium Chloride (Sodium Chloride Flush Syringe 10 Ml) 10 ml IV PRN PRN PRN Reason: LINE FLUSH Last Admin: 11/08/19 09:10 Dose: 10 ml Documented by: Objective Vital Signs - 12hr 11/09/19 11/09/19 11/09/19 00:30 01:00 01:25 Temperature Pulse Rate 77 78 85 Pulse Rate [ Anterior Bilateral Throughout] Pulse Rate [ 80 From Monitor] Respiratory 22 22 19 Rate Respiratory Rate [Anterior Bilateral Throughout] Blood Pressure 128/66 128/68 O2 Sat by Pulse 94 93 95 Oximetry 11/09/19 11/09/19 11/09/19 01:30 02:00 02:11 Temperature Pulse Rate 79 82 Pulse Rate [ Anterior Bilateral Throughout] Pulse Rate [ From Monitor] Respiratory 25 H 25 H 25 H Rate Respiratory Rate [Anterior Bilateral Throughout] Blood Pressure 130/66 120/72 O2 Sat by Pulse 91 95 Oximetry 11/09/19 11/09/19 11/09/19 02:30 02:41 03:00 Temperature Pulse Rate 81 81 Pulse Rate [ Anterior Bilateral Throughout] Pulse Rate [ From Monitor] Respiratory 20 17 16 Rate Respiratory Rate [Anterior Bilateral Throughout] Blood Pressure 119/68 128/55 O2 Sat by Pulse 91 93 Oximetry 11/09/19 11/09/19 11/09/19 03:02 03:16 03:25 Temperature 97.9 F Pulse Rate 81 Pulse Rate [ 85 Anterior Bilateral Throughout] Pulse Rate [ From Monitor] Respiratory 19 Rate Respiratory 21 Rate [Anterior Bilateral Throughout] Blood Pressure O2 Sat by Pulse 95 Oximetry 11/09/19 11/09/19 11/09/19 03:30 04:00 04:30 Temperature Pulse Rate 85 84 82 Pulse Rate [ Anterior Bilateral Throughout] Pulse Rate [ From Monitor] Respiratory 20 24 23 Rate Respiratory Rate [Anterior Bilateral Throughout] Blood Pressure 120/60 125/63 122/65 O2 Sat by Pulse 91 91 94 Oximetry 11/09/19 11/09/19 11/09/19 05:00 05:30 05:53 Temperature Pulse Rate 81 81 83 Pulse Rate [ Anterior Bilateral Throughout] Pulse Rate [ From Monitor] Respiratory 21 17 Rate Respiratory Rate [Anterior Bilateral Throughout] Blood Pressure 122/67 133/68 133/68 O2 Sat by Pulse 94 93 Oximetry 11/09/19 11/09/19 11/09/19 06:00 06:30 07:00 Temperature Pulse Rate 82 75 75 Pulse Rate [ Anterior Bilateral Throughout] Pulse Rate [ From Monitor] Respiratory 21 22 24 Rate Respiratory Rate [Anterior Bilateral Throughout] Blood Pressure 133/71 133/77 137/66 O2 Sat by Pulse 95 96 92 Oximetry 11/09/19 11/09/19 11/09/19 07:31 07:50 08:00 Temperature 99.9 F H Pulse Rate 86 80 Pulse Rate [ Anterior Bilateral Throughout] Pulse Rate [ 90 From Monitor] Respiratory 23 14 16 Rate Respiratory Rate [Anterior Bilateral Throughout] Blood Pressure 137/66 126/71 O2 Sat by Pulse 96 95 Oximetry 11/09/19 11/09/19 11/09/19 08:22 08:30 09:01 Temperature Pulse Rate 84 94 H Pulse Rate [ 82 Anterior Bilateral Throughout] Pulse Rate [ From Monitor] Respiratory 19 13 Rate Respiratory 20 Rate [Anterior Bilateral Throughout] Blood Pressure 127/65 108/39 O2 Sat by Pulse 94 92 94 Oximetry 11/09/19 11/09/19 11/09/19 09:30 09:55 10:00 Temperature Pulse Rate 85 85 86 Pulse Rate [ Anterior Bilateral Throughout] Pulse Rate [ From Monitor] Respiratory 12 19 Rate Respiratory Rate [Anterior Bilateral Throughout] Blood Pressure 126/63 126/63 127/67 O2 Sat by Pulse 93 96 Oximetry 11/09/19 11/09/19 10:30 11:00 Temperature Pulse Rate 87 83 Pulse Rate [ Anterior Bilateral Throughout] Pulse Rate [ From Monitor] Respiratory 17 17 Rate Respiratory Rate [Anterior Bilateral Throughout] Blood Pressure 123/63 126/72 O2 Sat by Pulse 93 95 Oximetry Constitutional: no acute distress, alert, other (obese) Eyes: non-icteric ENT: oropharynx moist Neck: supple Effort: normal Ascultation: Bilateral: diminished breath sounds (bases) Cardiovascular: regular rate and rhythm (no mrg) Gastrointestinal: tender, other (obese, distended, ostomy in place; wound vac in place) Integumentary: normal Extremities: no cyanosis, pink and warm, edema (1+ bilateral LE edema) Neurologic: normal mental status, non-focal exam, pupils equal and round Psychiatric: mood appropriate, affect normal CBC and BMP: 11/08/19 03:45 11/08/19 03:45 ABG, PT/INR, D-dimer: ABG POC ABG pH 7.422 (7.35-7.45) 11/03/19 04:28 ABG pH 7.390 pH Units (7.350-7.450) 10/23/19 04:47 POC ABG pCO2 45.4 (35-45) H 11/03/19 04:28 ABG pCO2 48.4 mm Hg 10/23/19 04:47 POC ABG pO2 83 (80-105) 11/03/19 04:28 ABG pO2 68.9 mm Hg (80.0-90.0) L 10/23/19 04:47 POC ABG HCO3 29.6 (22-26 mml/L) 11/03/19 04:28 POC ABG Total CO2 31 (23-27mmol/L) 11/03/19 04:28 POC ABG O2 Sat 96 11/03/19 04:28 ABG O2 Saturation 96.6 % (95.0-99.0) 10/23/19 04:47 Abnormal lab findings: Abnormal Labs 10/06/19 10/06/19 10/07/19 05:36 05:36 05:54 WBC 21.8 H 21.5 H RBC 3.55 L Hgb 10.9 L Hct 32.7 L MCHC RDW Plt Count Lymph % (Auto) [place] % (Auto) Lymph # [place] # Seg Neutrophils % Seg Neuts % (Manual) 91.0 H Lymphocytes % (Manual) 2.0 L Seg Neutrophils # Seg Neutrophils # Man 19.8 H Lymphocytes # (Manual) 0.4 L Monocytes # (Manual) 1.1 H POC ABG pH ABG pH POC ABG pCO2 POC ABG pO2 ABG pO2 ABG HCO3 ABG Base Excess ABG Hemoglobin Oxyhemoglobin Sodium 135 L Potassium Chloride 95.9 L Carbon Dioxide BUN Creatinine 0.7 L Glucose POC Glucose Calcium Phosphorus Magnesium Direct Bilirubin AST Alkaline Phosphatase C-Reactive Protein Serum Total Protein Total Protein 5.7 L Albumin 2.5 L Prealbumin Jchgu-8-Bieerxuqj Adksp-5-Xglkycant Gamma Globulins PEP Interpretation Triglycerides Urine pH Urine Creatinine Urine Total Protein Vancomycin Trough Digoxin Crossmatch 10/07/19 10/09/19 10/09/19 05:54 10:52 10:52 WBC 16.6 H RBC Hgb Hct MCHC RDW Plt Count 498 H Lymph % (Auto) [place] % (Auto) Lymph # [place] # Seg Neutrophils % Seg Neuts % (Manual) 93.0 H Lymphocytes % (Manual) 5.0 L Seg Neutrophils # Seg Neutrophils # Man 15.4 H Lymphocytes # (Manual) 0.8 L Monocytes # (Manual) POC ABG pH ABG pH POC ABG pCO2 POC ABG pO2 ABG pO2 ABG HCO3 ABG Base Excess ABG Hemoglobin Oxyhemoglobin Sodium Potassium Chloride 97.9 L Carbon Dioxide 20 L D BUN 23 H Creatinine 1.7 H D Glucose 109 H POC Glucose Calcium 8.1 L Phosphorus Magnesium Direct Bilirubin AST Alkaline Phosphatase C-Reactive Protein Serum Total Protein Total Protein Albumin Prealbumin Fdanu-9-Ykpwxijts Svyay-7-Kcfxnqabp Gamma Globulins PEP Interpretation Triglycerides Urine pH Urine Creatinine Urine Total Protein Vancomycin Trough Digoxin Crossmatch 10/09/19 10/10/19 10/10/19 17:23 05:30 05:30 WBC 14.6 H RBC Hgb 11.1 L Hct 33.5 L MCHC RDW Plt Count 527 H Lymph % (Auto) [place] % (Auto) Lymph # [place] # Seg Neutrophils % Seg Neuts % (Manual) Lymphocytes % (Manual) Seg Neutrophils # Seg Neutrophils # Man Lymphocytes # (Manual) Monocytes # (Manual) POC ABG pH ABG pH POC ABG pCO2 POC ABG pO2 ABG pO2 ABG HCO3 ABG Base Excess ABG Hemoglobin Oxyhemoglobin Sodium 130 L D Potassium 5.1 H Chloride 90.0 L 91.0 L Carbon Dioxide 20 L 20 L BUN 27 H 35 H Creatinine 1.9 H 2.0 H Glucose 104 H POC Glucose Calcium Phosphorus Magnesium Direct Bilirubin AST Alkaline Phosphatase C-Reactive Protein Serum Total Protein Total Protein Albumin Prealbumin Wwffv-1-Gykdrdrbv Ohmrw-7-Nqzvelsvz Gamma Globulins PEP Interpretation Triglycerides Urine pH Urine Creatinine Urine Total Protein Vancomycin Trough Digoxin Crossmatch 10/10/19 10/10/19 10/11/19 08:33 08:44 05:41 WBC 13.2 H RBC Hgb 11.3 L Hct 33.8 L MCHC RDW 15.3 H Plt Count 543 H Lymph % (Auto) [place] % (Auto) Lymph # [place] # Seg Neutrophils % Seg Neuts % (Manual) Lymphocytes % (Manual) Seg Neutrophils # Seg Neutrophils # Man Lymphocytes # (Manual) Monocytes # (Manual) POC ABG pH ABG pH POC ABG pCO2 POC ABG pO2 ABG pO2 ABG HCO3 ABG Base Excess ABG Hemoglobin Oxyhemoglobin Sodium Potassium Chloride Carbon Dioxide BUN Creatinine Glucose 113 H POC Glucose 117 H Calcium Phosphorus Magnesium Direct Bilirubin AST Alkaline Phosphatase C-Reactive Protein Serum Total Protein Total Protein Albumin Prealbumin Xlqxt-4-Jrurwzuol Ctugs-3-Tceaqptxj Gamma Globulins PEP Interpretation Triglycerides Urine pH Urine Creatinine Urine Total Protein Vancomycin Trough Digoxin Crossmatch 10/11/19 10/11/19 10/11/19 05:41 06:23 06:23 WBC RBC Hgb Hct MCHC RDW Plt Count Lymph % (Auto) [place] % (Auto) Lymph # [place] # Seg Neutrophils % Seg Neuts % (Manual) Lymphocytes % (Manual) Seg Neutrophils # Seg Neutrophils # Man Lymphocytes # (Manual) Monocytes # (Manual) POC ABG pH ABG pH POC ABG pCO2 POC ABG pO2 ABG pO2 ABG HCO3 ABG Base Excess ABG Hemoglobin Oxyhemoglobin Sodium 134 L Potassium Chloride 96.3 L Carbon Dioxide BUN 37 H Creatinine Glucose 58 L POC Glucose Calcium Phosphorus 4.90 H Magnesium Direct Bilirubin AST Alkaline Phosphatase C-Reactive Protein Serum Total Protein Total Protein Albumin Prealbumin Sxrmh-8-Asrlkxuzf Rkucn-8-Ctfkefrhk Gamma Globulins PEP Interpretation Triglycerides Urine pH Urine Creatinine 118.2 H 116.8 H Urine Total Protein 105 H 104 H Vancomycin Trough Digoxin Crossmatch 10/11/19 10/12/19 10/12/19 09:00 06:09 06:09 WBC 13.8 H RBC 3.39 L Hgb 10.2 L Hct 30.9 L MCHC RDW 15.5 H Plt Count 459 H Lymph % (Auto) [place] % (Auto) Lymph # [place] # Seg Neutrophils % Seg Neuts % (Manual) Lymphocytes % (Manual) Seg Neutrophils # Seg Neutrophils # Man Lymphocytes # (Manual) Monocytes # (Manual) POC ABG pH ABG pH POC ABG pCO2 POC ABG pO2 ABG pO2 ABG HCO3 ABG Base Excess ABG Hemoglobin Oxyhemoglobin Sodium 131 L Potassium Chloride 96.2 L Carbon Dioxide 21 L BUN 43 H Creatinine Glucose 72 L POC Glucose Calcium Phosphorus Magnesium Direct Bilirubin AST Alkaline Phosphatase C-Reactive Protein Serum Total Protein 5.2 L Total Protein Albumin 1.9 L Prealbumin Babge-4-Qydkgzuly 0.9 H Tgoxr-7-Bvecumlap 1.0 H Gamma Globulins 0.7 L PEP Interpretation see below H Triglycerides Urine pH Urine Creatinine Urine Total Protein Vancomycin Trough Digoxin Crossmatch 10/12/19 10/12/19 10/12/19 08:20 09:30 09:30 WBC RBC Hgb Hct MCHC RDW Plt Count Lymph % (Auto) [place] % (Auto) Lymph # [place] # Seg Neutrophils % Seg Neuts % (Manual) Lymphocytes % (Manual) Seg Neutrophils # Seg Neutrophils # Man Lymphocytes # (Manual) Monocytes # (Manual) POC ABG pH ABG pH POC ABG pCO2 POC ABG pO2 63 L ABG pO2 ABG HCO3 ABG Base Excess ABG Hemoglobin Oxyhemoglobin Sodium Potassium Chloride Carbon Dioxide BUN Creatinine Glucose POC Glucose Calcium Phosphorus Magnesium 2.50 H Direct Bilirubin 0.3 H AST Alkaline Phosphatase C-Reactive Protein Serum Total Protein Total Protein 5.1 L Albumin 2.2 L Prealbumin Nbthz-3-Eudsvhjxx Tmmgc-6-Zfvmbwggc Gamma Globulins PEP Interpretation Triglycerides Urine pH Urine Creatinine Urine Total Protein Vancomycin Trough Digoxin Crossmatch 10/13/19 10/13/19 10/13/19 04:20 04:20 13:20 WBC 15.7 H RBC 3.64 L Hgb 10.9 L Hct 33.1 L MCHC RDW 15.8 H Plt Count 488 H Lymph % (Auto) [place] % (Auto) Lymph # [place] # Seg Neutrophils % Seg Neuts % (Manual) Lymphocytes % (Manual) Seg Neutrophils # Seg Neutrophils # Man Lymphocytes # (Manual) Monocytes # (Manual) POC ABG pH ABG pH POC ABG pCO2 POC ABG pO2 ABG pO2 ABG HCO3 ABG Base Excess ABG Hemoglobin Oxyhemoglobin Sodium Potassium Chloride Carbon Dioxide BUN 28 H Creatinine Glucose POC Glucose Calcium Phosphorus Magnesium Direct Bilirubin AST Alkaline Phosphatase C-Reactive Protein Serum Total Protein Total Protein Albumin Prealbumin Wsldk-2-Hhkcxlkqm Mrqmg-5-Couywiulj Gamma Globulins PEP Interpretation Triglycerides Urine pH Urine Creatinine Urine Total Protein Vancomycin Trough Digoxin Crossmatch See Detail 10/13/19 10/13/19 10/14/19 18:24 20:05 04:47 WBC 24.2 H RBC Hgb 10.9 L Hct 34.2 L MCHC RDW 17.0 H Plt Count 442 H Lymph % (Auto) [place] % (Auto) Lymph # [place] # Seg Neutrophils % Seg Neuts % (Manual) Lymphocytes % (Manual) Seg Neutrophils # Seg Neutrophils # Man Lymphocytes # (Manual) Monocytes # (Manual) POC ABG pH ABG pH 7.180 L* 7.278 L POC ABG pCO2 POC ABG pO2 ABG pO2 130.7 H ABG HCO3 ABG Base Excess -6.5 L -6.5 L ABG Hemoglobin 12.2 L 12.3 L Oxyhemoglobin 92.9 L Sodium Potassium Chloride Carbon Dioxide BUN Creatinine Glucose POC Glucose Calcium Phosphorus Magnesium Direct Bilirubin AST Alkaline Phosphatase C-Reactive Protein Serum Total Protein Total Protein Albumin Prealbumin Xmjzk-4-Thexwgrye Sgtij-9-Ygdgqzqdm Gamma Globulins PEP Interpretation Triglycerides Urine pH Urine Creatinine Urine Total Protein Vancomycin Trough Digoxin Crossmatch 10/14/19 10/14/19 10/14/19 04:47 05:40 10:14 WBC RBC Hgb Hct MCHC RDW Plt Count Lymph % (Auto) [place] % (Auto) Lymph # [place] # Seg Neutrophils % Seg Neuts % (Manual) Lymphocytes % (Manual) Seg Neutrophils # Seg Neutrophils # Man Lymphocytes # (Manual) Monocytes # (Manual) POC ABG pH ABG pH POC ABG pCO2 POC ABG pO2 ABG pO2 76.3 L ABG HCO3 19.1 L ABG Base Excess -5.8 L ABG Hemoglobin 10.9 L Oxyhemoglobin 93.4 L Sodium Potassium 5.1 H D Chloride 109.2 H Carbon Dioxide 17 L BUN 38 H Creatinine 1.8 H D Glucose 104 H POC Glucose Calcium 7.4 L Phosphorus 5.60 H Magnesium Direct Bilirubin AST Alkaline Phosphatase C-Reactive Protein Serum Total Protein Total Protein Albumin Prealbumin Wuyhe-5-Tmofhybqa Vupcz-7-Rlllaqvuo Gamma Globulins PEP Interpretation Triglycerides Urine pH Urine Creatinine Urine Total Protein Vancomycin Trough Digoxin Crossmatch 10/14/19 10/15/19 10/15/19 23:46 04:32 04:32 WBC 15.5 H RBC 2.89 L Hgb 8.8 L Hct 27.3 L D MCHC RDW 16.6 H Plt Count Lymph % (Auto) [place] % (Auto) Lymph # [place] # Seg Neutrophils % Seg Neuts % (Manual) Lymphocytes % (Manual) Seg Neutrophils # Seg Neutrophils # Man Lymphocytes # (Manual) Monocytes # (Manual) POC ABG pH ABG pH POC ABG pCO2 POC ABG pO2 ABG pO2 ABG HCO3 ABG Base Excess ABG Hemoglobin Oxyhemoglobin Sodium 147 H Potassium Chloride 114.0 H Carbon Dioxide 19 L BUN 42 H Creatinine Glucose 112 H POC Glucose 113 H Calcium 7.3 L Phosphorus Magnesium Direct Bilirubin AST 72 H Alkaline Phosphatase C-Reactive Protein 30.60 H Serum Total Protein Total Protein 4.0 L D Albumin 1.7 L Prealbumin 0.030 L Hxeid-5-Qyynaclgk Jbedc-4-Cjaojsegc Gamma Globulins PEP Interpretation Triglycerides Urine pH Urine Creatinine Urine Total Protein Vancomycin Trough Digoxin Crossmatch 10/15/19 10/15/19 10/15/19 05:30 12:08 17:23 WBC RBC Hgb Hct MCHC RDW Plt Count Lymph % (Auto) [place] % (Auto) Lymph # [place] # Seg Neutrophils % Seg Neuts % (Manual) Lymphocytes % (Manual) Seg Neutrophils # Seg Neutrophils # Man Lymphocytes # (Manual) Monocytes # (Manual) POC ABG pH ABG pH 7.296 L POC ABG pCO2 POC ABG pO2 ABG pO2 114.7 H ABG HCO3 ABG Base Excess -3.7 L ABG Hemoglobin 8.9 L Oxyhemoglobin Sodium Potassium Chloride Carbon Dioxide BUN Creatinine Glucose POC Glucose 106 H 106 H Calcium Phosphorus Magnesium Direct Bilirubin AST Alkaline Phosphatase C-Reactive Protein Serum Total Protein Total Protein Albumin Prealbumin Lylil-9-Wvlmodorj Tooeg-5-Hgncgcbbe Gamma Globulins PEP Interpretation Triglycerides Urine pH Urine Creatinine Urine Total Protein Vancomycin Trough Digoxin Crossmatch 10/16/19 10/16/19 10/16/19 00:07 04:44 05:24 WBC RBC Hgb Hct MCHC RDW Plt Count Lymph % (Auto) [place] % (Auto) Lymph # [place] # Seg Neutrophils % Seg Neuts % (Manual) Lymphocytes % (Manual) Seg Neutrophils # Seg Neutrophils # Man Lymphocytes # (Manual) Monocytes # (Manual) POC ABG pH ABG pH POC ABG pCO2 POC ABG pO2 ABG pO2 ABG HCO3 ABG Base Excess ABG Hemoglobin Oxyhemoglobin Sodium 150 H Potassium Chloride 115.8 H Carbon Dioxide BUN 35 H Creatinine Glucose 129 H POC Glucose 119 H 129 H Calcium 7.3 L Phosphorus 1.80 L D Magnesium Direct Bilirubin AST Alkaline Phosphatase C-Reactive Protein Serum Total Protein Total Protein Albumin Prealbumin Olsug-0-Gexeujipa Xbhwv-2-Zzqrgdxqk Gamma Globulins PEP Interpretation Triglycerides Urine pH Urine Creatinine Urine Total Protein Vancomycin Trough Digoxin Crossmatch 10/16/19 10/16/19 10/16/19 06:53 09:20 11:58 WBC 14.6 H RBC 2.70 L Hgb 8.1 L Hct 25.2 L MCHC RDW 16.7 H Plt Count Lymph % (Auto) [place] % (Auto) Lymph # [place] # Seg Neutrophils % Seg Neuts % (Manual) 79.0 H Lymphocytes % (Manual) 4.0 L Seg Neutrophils # Seg Neutrophils # Man 11.5 H Lymphocytes # (Manual) 0.6 L Monocytes # (Manual) POC ABG pH ABG pH POC ABG pCO2 47.0 H POC ABG pO2 ABG pO2 ABG HCO3 ABG Base Excess ABG Hemoglobin Oxyhemoglobin Sodium Potassium Chloride Carbon Dioxide BUN Creatinine Glucose POC Glucose Calcium Phosphorus Magnesium Direct Bilirubin AST Alkaline Phosphatase C-Reactive Protein Serum Total Protein Total Protein Albumin Prealbumin Ahlwx-8-Dwtkvqyxr Jgpys-2-Eugnvdont Gamma Globulins PEP Interpretation Triglycerides Urine pH Urine Creatinine Urine Total Protein Vancomycin Trough Digoxin Crossmatch See Detail 10/16/19 10/16/19 10/16/19 15:23 17:50 23:58 WBC RBC Hgb Hct MCHC RDW Plt Count Lymph % (Auto) [place] % (Auto) Lymph # [place] # Seg Neutrophils % Seg Neuts % (Manual) Lymphocytes % (Manual) Seg Neutrophils # Seg Neutrophils # Man Lymphocytes # (Manual) Monocytes # (Manual) POC ABG pH ABG pH POC ABG pCO2 POC ABG pO2 ABG pO2 ABG HCO3 ABG Base Excess ABG Hemoglobin Oxyhemoglobin Sodium Potassium Chloride Carbon Dioxide BUN Creatinine Glucose POC Glucose 221 H 201 H 179 H Calcium Phosphorus Magnesium Direct Bilirubin AST Alkaline Phosphatase C-Reactive Protein Serum Total Protein Total Protein Albumin Prealbumin Pbnbw-8-Rgzugfnsd Wpxrg-4-Hgtqvxxsr Gamma Globulins PEP Interpretation Triglycerides Urine pH Urine Creatinine Urine Total Protein Vancomycin Trough Digoxin Crossmatch 10/17/19 10/17/19 10/17/19 04:08 04:08 05:41 WBC 22.3 H RBC 3.35 L Hgb 10.0 L Hct 31.2 L D MCHC RDW 16.1 H Plt Count Lymph % (Auto) [place] % (Auto) Lymph # [place] # Seg Neutrophils % Seg Neuts % (Manual) Lymphocytes % (Manual) Seg Neutrophils # Seg Neutrophils # Man Lymphocytes # (Manual) Monocytes # (Manual) POC ABG pH 7.310 L ABG pH POC ABG pCO2 52.8 H POC ABG pO2 70 L ABG pO2 ABG HCO3 ABG Base Excess ABG Hemoglobin Oxyhemoglobin Sodium 147 H Potassium Chloride 114.9 H Carbon Dioxide BUN 36 H Creatinine Glucose 165 H POC Glucose Calcium 6.9 L Phosphorus 2.20 L D Magnesium Direct Bilirubin AST Alkaline Phosphatase C-Reactive Protein Serum Total Protein Total Protein Albumin Prealbumin Hpwas-0-Xpunmlguv Mibxj-9-Ecbtfdneu Gamma Globulins PEP Interpretation Triglycerides Urine pH Urine Creatinine Urine Total Protein Vancomycin Trough Digoxin Crossmatch 10/17/19 10/17/19 10/17/19 05:42 11:33 18:17 WBC RBC Hgb Hct MCHC RDW Plt Count Lymph % (Auto) [place] % (Auto) Lymph # [place] # Seg Neutrophils % Seg Neuts % (Manual) Lymphocytes % (Manual) Seg Neutrophils # Seg Neutrophils # Man Lymphocytes # (Manual) Monocytes # (Manual) POC ABG pH ABG pH POC ABG pCO2 POC ABG pO2 ABG pO2 ABG HCO3 ABG Base Excess ABG Hemoglobin Oxyhemoglobin Sodium Potassium Chloride Carbon Dioxide BUN Creatinine Glucose POC Glucose 149 H 154 H 163 H Calcium Phosphorus Magnesium Direct Bilirubin AST Alkaline Phosphatase C-Reactive Protein Serum Total Protein Total Protein Albumin Prealbumin Gxrcx-8-Vjzbejbvk Dfvng-8-Ghgcaxybi Gamma Globulins PEP Interpretation Triglycerides Urine pH Urine Creatinine Urine Total Protein Vancomycin Trough Digoxin Crossmatch 10/17/19 10/18/19 10/18/19 23:34 03:29 04:50 WBC RBC Hgb Hct MCHC RDW Plt Count Lymph % (Auto) [place] % (Auto) Lymph # [place] # Seg Neutrophils % Seg Neuts % (Manual) Lymphocytes % (Manual) Seg Neutrophils # Seg Neutrophils # Man Lymphocytes # (Manual) Monocytes # (Manual) POC ABG pH ABG pH POC ABG pCO2 POC ABG pO2 ABG pO2 78.8 L ABG HCO3 ABG Base Excess ABG Hemoglobin 8.8 L Oxyhemoglobin Sodium Potassium Chloride 111.8 H Carbon Dioxide BUN 27 H Creatinine 0.6 L Glucose 140 H POC Glucose 135 H Calcium 7.1 L Phosphorus 1.80 L Magnesium Direct Bilirubin AST Alkaline Phosphatase C-Reactive Protein Serum Total Protein Total Protein Albumin Prealbumin Rhrxv-3-Ztzieltpr Lgibx-1-Hxptroqsa Gamma Globulins PEP Interpretation Triglycerides Urine pH Urine Creatinine Urine Total Protein Vancomycin Trough Digoxin Crossmatch 10/18/19 10/18/19 10/18/19 05:45 11:19 18:26 WBC RBC Hgb Hct MCHC RDW Plt Count Lymph % (Auto) [place] % (Auto) Lymph # [place] # Seg Neutrophils % Seg Neuts % (Manual) Lymphocytes % (Manual) Seg Neutrophils # Seg Neutrophils # Man Lymphocytes # (Manual) Monocytes # (Manual) POC ABG pH ABG pH POC ABG pCO2 POC ABG pO2 ABG pO2 ABG HCO3 ABG Base Excess ABG Hemoglobin Oxyhemoglobin Sodium Potassium Chloride Carbon Dioxide BUN Creatinine Glucose POC Glucose 145 H 152 H 125 H Calcium Phosphorus Magnesium Direct Bilirubin AST Alkaline Phosphatase C-Reactive Protein Serum Total Protein Total Protein Albumin Prealbumin Pjdtu-5-Iaswtnfpu Xjvbp-0-Aotynrnpl Gamma Globulins PEP Interpretation Triglycerides Urine pH Urine Creatinine Urine Total Protein Vancomycin Trough Digoxin Crossmatch 10/18/19 10/19/19 10/19/19 23:27 04:21 04:21 WBC RBC Hgb Hct MCHC RDW Plt Count Lymph % (Auto) [place] % (Auto) Lymph # [place] # Seg Neutrophils % Seg Neuts % (Manual) Lymphocytes % (Manual) Seg Neutrophils # Seg Neutrophils # Man Lymphocytes # (Manual) Monocytes # (Manual) POC ABG pH ABG pH POC ABG pCO2 POC ABG pO2 ABG pO2 ABG HCO3 ABG Base Excess ABG Hemoglobin Oxyhemoglobin Sodium Potassium Chloride 108.4 H Carbon Dioxide BUN 22 H Creatinine 0.5 L Glucose 123 H POC Glucose 127 H Calcium 7.4 L Phosphorus 1.80 L Magnesium Direct Bilirubin AST Alkaline Phosphatase C-Reactive Protein Serum Total Protein Total Protein Albumin Prealbumin Kxlji-3-Eibcgvgly Pjcuw-2-Ffkceteeu Gamma Globulins PEP Interpretation Triglycerides Urine pH Urine Creatinine Urine Total Protein Vancomycin Trough Digoxin 0.7 L Crossmatch 10/19/19 10/19/19 10/19/19 05:00 05:35 11:26 WBC RBC Hgb Hct MCHC RDW Plt Count Lymph % (Auto) [place] % (Auto) Lymph # [place] # Seg Neutrophils % Seg Neuts % (Manual) Lymphocytes % (Manual) Seg Neutrophils # Seg Neutrophils # Man Lymphocytes # (Manual) Monocytes # (Manual) POC ABG pH ABG pH 7.456 H POC ABG pCO2 POC ABG pO2 ABG pO2 78.8 L ABG HCO3 ABG Base Excess ABG Hemoglobin 5.6 L Oxyhemoglobin Sodium Potassium Chloride Carbon Dioxide BUN Creatinine Glucose POC Glucose 124 H 111 H Calcium Phosphorus Magnesium Direct Bilirubin AST Alkaline Phosphatase C-Reactive Protein Serum Total Protein Total Protein Albumin Prealbumin Rdwxm-0-Nlqdsyrbv Cigvx-2-Fnxebhzhm Gamma Globulins PEP Interpretation Triglycerides Urine pH Urine Creatinine Urine Total Protein Vancomycin Trough Digoxin Crossmatch 10/19/19 10/20/19 10/20/19 23:23 04:50 05:17 WBC RBC Hgb Hct MCHC RDW Plt Count Lymph % (Auto) [place] % (Auto) Lymph # [place] # Seg Neutrophils % Seg Neuts % (Manual) Lymphocytes % (Manual) Seg Neutrophils # Seg Neutrophils # Man Lymphocytes # (Manual) Monocytes # (Manual) POC ABG pH ABG pH POC ABG pCO2 POC ABG pO2 ABG pO2 ABG HCO3 ABG Base Excess ABG Hemoglobin Oxyhemoglobin Sodium Potassium Chloride 108.1 H Carbon Dioxide BUN Creatinine 0.4 L Glucose 134 H POC Glucose 129 H 123 H Calcium 7.1 L Phosphorus Magnesium Direct Bilirubin AST Alkaline Phosphatase C-Reactive Protein Serum Total Protein Total Protein Albumin Prealbumin Kvjoi-5-Uybxruciy Lqsle-7-Inyzrmhgs Gamma Globulins PEP Interpretation Triglycerides Urine pH Urine Creatinine Urine Total Protein Vancomycin Trough Digoxin Crossmatch 10/20/19 10/20/19 10/21/19 11:40 19:06 05:08 WBC RBC Hgb Hct MCHC RDW Plt Count Lymph % (Auto) [place] % (Auto) Lymph # [place] # Seg Neutrophils % Seg Neuts % (Manual) Lymphocytes % (Manual) Seg Neutrophils # Seg Neutrophils # Man Lymphocytes # (Manual) Monocytes # (Manual) POC ABG pH ABG pH POC ABG pCO2 POC ABG pO2 ABG pO2 ABG HCO3 ABG Base Excess ABG Hemoglobin Oxyhemoglobin Sodium Potassium Chloride Carbon Dioxide BUN Creatinine Glucose POC Glucose 139 H 117 H 131 H Calcium Phosphorus Magnesium Direct Bilirubin AST Alkaline Phosphatase C-Reactive Protein Serum Total Protein Total Protein Albumin Prealbumin Mbcds-2-Bogphvgir Dxbjt-1-Lptshdwrf Gamma Globulins PEP Interpretation Triglycerides Urine pH Urine Creatinine Urine Total Protein Vancomycin Trough Digoxin Crossmatch 10/21/19 10/21/19 10/21/19 05:30 12:04 17:31 WBC RBC Hgb Hct MCHC RDW Plt Count Lymph % (Auto) [place] % (Auto) Lymph # [place] # Seg Neutrophils % Seg Neuts % (Manual) Lymphocytes % (Manual) Seg Neutrophils # Seg Neutrophils # Man Lymphocytes # (Manual) Monocytes # (Manual) POC ABG pH ABG pH POC ABG pCO2 POC ABG pO2 ABG pO2 ABG HCO3 ABG Base Excess ABG Hemoglobin Oxyhemoglobin Sodium Potassium Chloride 107.8 H Carbon Dioxide BUN Creatinine 0.5 L Glucose 119 H POC Glucose 119 H 110 H Calcium 7.6 L Phosphorus Magnesium Direct Bilirubin AST Alkaline Phosphatase C-Reactive Protein Serum Total Protein Total Protein Albumin Prealbumin Voptc-0-Fhylmrrhj Qjvkf-6-Maxrpugcm Gamma Globulins PEP Interpretation Triglycerides Urine pH Urine Creatinine Urine Total Protein Vancomycin Trough Digoxin Crossmatch 10/22/19 10/22/19 10/22/19 05:14 05:37 12:07 WBC RBC Hgb Hct MCHC RDW Plt Count Lymph % (Auto) [place] % (Auto) Lymph # [place] # Seg Neutrophils % Seg Neuts % (Manual) Lymphocytes % (Manual) Seg Neutrophils # Seg Neutrophils # Man Lymphocytes # (Manual) Monocytes # (Manual) POC ABG pH ABG pH POC ABG pCO2 POC ABG pO2 ABG pO2 ABG HCO3 ABG Base Excess ABG Hemoglobin Oxyhemoglobin Sodium Potassium Chloride Carbon Dioxide BUN Creatinine 0.5 L Glucose 116 H POC Glucose 110 H 126 H Calcium 7.7 L Phosphorus Magnesium Direct Bilirubin AST Alkaline Phosphatase C-Reactive Protein Serum Total Protein Total Protein Albumin Prealbumin [place]bo-0-Yqjbmvjnq Zzycy-4-Haisykwzx Gamma Globulins PEP Interpretation Triglycerides Urine pH Urine Creatinine Urine Total Protein Vancomycin Trough Digoxin Crossmatch 10/22/19 10/22/19 10/23/19 18:36 23:19 04:39 WBC RBC Hgb Hct MCHC RDW Plt Count Lymph % (Auto) [place] % (Auto) Lymph # [place] # Seg Neutrophils % Seg Neuts % (Manual) Lymphocytes % (Manual) Seg Neutrophils # Seg Neutrophils # Man Lymphocytes # (Manual) Monocytes # (Manual) POC ABG pH ABG pH POC ABG pCO2 POC ABG pO2 ABG pO2 ABG HCO3 ABG Base Excess ABG Hemoglobin Oxyhemoglobin Sodium Potassium Chloride Carbon Dioxide BUN Creatinine Glucose POC Glucose 120 H 127 H 112 H Calcium Phosphorus Magnesium Direct Bilirubin AST Alkaline Phosphatase C-Reactive Protein Serum Total Protein Total Protein Albumin Prealbumin Vvjij-3-Nuvhlgcoh Pedlv-2-Zpjmywzsk Gamma Globulins PEP Interpretation Triglycerides Urine pH Urine Creatinine Urine Total Protein Vancomycin Trough Digoxin Crossmatch 10/23/19 10/23/19 10/23/19 04:47 05:15 10:44 WBC 18.3 H RBC 2.33 L Hgb 7.0 L Hct 21.5 L MCHC RDW 16.2 H Plt Count Lymph % (Auto) 4.9 L [place] % (Auto) 8.1 H Lymph # 0.9 L [place] # 1.5 H Seg Neutrophils % 86.7 H Seg Neuts % (Manual) Lymphocytes % (Manual) Seg Neutrophils # 15.9 H Seg Neutrophils # Man Lymphocytes # (Manual) Monocytes # (Manual) POC ABG pH ABG pH POC ABG pCO2 POC ABG pO2 ABG pO2 68.9 L ABG HCO3 28.7 H ABG Base Excess 3.4 H ABG Hemoglobin 6.6 L Oxyhemoglobin 94.1 L Sodium Potassium Chloride Carbon Dioxide BUN Creatinine 0.5 L Glucose 165 H POC Glucose Calcium 7.4 L Phosphorus Magnesium Direct Bilirubin AST Alkaline Phosphatase C-Reactive Protein Serum Total Protein Total Protein Albumin Prealbumin Ylrpl-3-Srtwoiskw Gafxp-9-Meepewpbc Gamma Globulins PEP Interpretation Triglycerides Urine pH Urine Creatinine Urine Total Protein Vancomycin Trough Digoxin Crossmatch 10/23/19 10/23/19 10/23/19 10:44 11:46 11:50 WBC RBC Hgb Hct MCHC RDW Plt Count Lymph % (Auto) [place] % (Auto) Lymph # [place] # Seg Neutrophils % Seg Neuts % (Manual) Lymphocytes % (Manual) Seg Neutrophils # Seg Neutrophils # Man Lymphocytes # (Manual) Monocytes # (Manual) POC ABG pH ABG pH POC ABG pCO2 POC ABG pO2 ABG pO2 ABG HCO3 ABG Base Excess ABG Hemoglobin Oxyhemoglobin Sodium Potassium Chloride Carbon Dioxide BUN Creatinine Glucose POC Glucose 138 H Calcium Phosphorus Magnesium Direct Bilirubin 0.7 H AST Alkaline Phosphatase C-Reactive Protein Serum Total Protein Total Protein 4.5 L Albumin 1.2 L Prealbumin Tocff-0-Kafjddwfz Nqtdm-5-Bnaifjsmm Gamma Globulins PEP Interpretation Triglycerides Urine pH Urine Creatinine Urine Total Protein Vancomycin Trough Digoxin Crossmatch See Detail 10/23/19 10/24/19 10/24/19 17:53 00:07 05:05 WBC RBC Hgb Hct MCHC RDW Plt Count Lymph % (Auto) [place] % (Auto) Lymph # [place] # Seg Neutrophils % Seg Neuts % (Manual) Lymphocytes % (Manual) Seg Neutrophils # Seg Neutrophils # Man Lymphocytes # (Manual) Monocytes # (Manual) POC ABG pH ABG pH POC ABG pCO2 POC ABG pO2 ABG pO2 ABG HCO3 ABG Base Excess ABG Hemoglobin Oxyhemoglobin Sodium Potassium 3.5 L Chloride Carbon Dioxide BUN Creatinine 0.5 L Glucose 116 H POC Glucose 137 H 110 H Calcium 8.0 L Phosphorus Magnesium Direct Bilirubin AST Alkaline Phosphatase C-Reactive Protein Serum Total Protein Total Protein Albumin Prealbumin Nbbql-8-Dqazmbsip Axser-6-Bupbhydjc Gamma Globulins PEP Interpretation Triglycerides Urine pH Urine Creatinine Urine Total Protein Vancomycin Trough Digoxin Crossmatch 10/24/19 10/24/19 10/24/19 05:05 11:56 13:00 WBC 13.0 H RBC 2.73 L Hgb 8.0 L Hct 24.2 L MCHC RDW 17.9 H Plt Count Lymph % (Auto) 7.0 L [place] % (Auto) 9.5 H Lymph # 0.9 L [place] # 1.2 H Seg Neutrophils % 82.7 H Seg Neuts % (Manual) Lymphocytes % (Manual) Seg Neutrophils # 10.7 H Seg Neutrophils # Man Lymphocytes # (Manual) Monocytes # (Manual) POC ABG pH ABG pH POC ABG pCO2 POC ABG pO2 ABG pO2 ABG HCO3 ABG Base Excess ABG Hemoglobin Oxyhemoglobin Sodium Potassium Chloride Carbon Dioxide BUN Creatinine Glucose POC Glucose 159 H Calcium Phosphorus Magnesium Direct Bilirubin AST Alkaline Phosphatase C-Reactive Protein Serum Total Protein Total Protein Albumin Prealbumin Lsdzr-0-Pwkicpkve Ixlap-4-Odthyojth Gamma Globulins PEP Interpretation Triglycerides 216 H Urine pH Urine Creatinine Urine Total Protein Vancomycin Trough Digoxin Crossmatch 10/24/19 10/24/19 10/25/19 17:42 23:45 04:19 WBC RBC Hgb Hct MCHC RDW Plt Count Lymph % (Auto) [place] % (Auto) Lymph # [place] # Seg Neutrophils % Seg Neuts % (Manual) Lymphocytes % (Manual) Seg Neutrophils # Seg Neutrophils # Man Lymphocytes # (Manual) Monocytes # (Manual) POC ABG pH ABG pH POC ABG pCO2 POC ABG pO2 ABG pO2 ABG HCO3 ABG Base Excess ABG Hemoglobin Oxyhemoglobin Sodium 147 H Potassium Chloride Carbon Dioxide 33 H BUN Creatinine 0.5 L Glucose 111 H POC Glucose 120 H 116 H Calcium Phosphorus Magnesium Direct Bilirubin AST Alkaline Phosphatase C-Reactive Protein Serum Total Protein Total Protein 5.7 L D Albumin 2.5 L Prealbumin [place]-9-Nhjtmaajr Qesjc-8-Yrdygmlyd Gamma Globulins PEP Interpretation Triglycerides 230 H Urine pH Urine Creatinine Urine Total Protein Vancomycin Trough Digoxin Crossmatch 10/25/19 10/25/19 10/25/19 04:19 05:31 12:20 WBC RBC 2.69 L Hgb 8.1 L Hct 23.9 L MCHC RDW 17.3 H Plt Count Lymph % (Auto) [place] % (Auto) Lymph # [place] # Seg Neutrophils % Seg Neuts % (Manual) Lymphocytes % (Manual) Seg Neutrophils # Seg Neutrophils # Man Lymphocytes # (Manual) Monocytes # (Manual) POC ABG pH ABG pH POC ABG pCO2 POC ABG pO2 ABG pO2 ABG HCO3 ABG Base Excess ABG Hemoglobin Oxyhemoglobin Sodium Potassium Chloride Carbon Dioxide BUN Creatinine Glucose POC Glucose 126 H 114 H Calcium Phosphorus Magnesium Direct Bilirubin AST Alkaline Phosphatase C-Reactive Protein Serum Total Protein Total Protein Albumin Prealbumin Qailv-7-Ziypvbdfr Feraa-2-Ilvzeokob Gamma Globulins PEP Interpretation Triglycerides Urine pH Urine Creatinine Urine Total Protein Vancomycin Trough Digoxin Crossmatch 10/25/19 10/25/19 10/26/19 18:30 23:09 06:15 WBC RBC Hgb Hct MCHC RDW Plt Count Lymph % (Auto) [place] % (Auto) Lymph # [place] # Seg Neutrophils % Seg Neuts % (Manual) Lymphocytes % (Manual) Seg Neutrophils # Seg Neutrophils # Man Lymphocytes # (Manual) Monocytes # (Manual) POC ABG pH ABG pH POC ABG pCO2 POC ABG pO2 ABG pO2 ABG HCO3 ABG Base Excess ABG Hemoglobin Oxyhemoglobin Sodium Potassium 3.5 L Chloride Carbon Dioxide BUN Creatinine 0.5 L Glucose 112 H POC Glucose 121 H 107 H Calcium 8.3 L Phosphorus Magnesium Direct Bilirubin AST Alkaline Phosphatase 148 H C-Reactive Protein Serum Total Protein Total Protein 5.9 L Albumin 2.4 L Prealbumin Bjzll-8-Fimxnujwr Srdvd-0-Bzcvuwepc Gamma Globulins PEP Interpretation Triglycerides Urine pH Urine Creatinine Urine Total Protein Vancomycin Trough Digoxin Crossmatch 10/26/19 10/26/19 10/26/19 06:15 12:21 17:35 WBC RBC Hgb Hct MCHC RDW Plt Count Lymph % (Auto) [place] % (Auto) Lymph # [place] # Seg Neutrophils % Seg Neuts % (Manual) Lymphocytes % (Manual) Seg Neutrophils # Seg Neutrophils # Man Lymphocytes # (Manual) Monocytes # (Manual) POC ABG pH ABG pH POC ABG pCO2 POC ABG pO2 ABG pO2 ABG HCO3 ABG Base Excess ABG Hemoglobin Oxyhemoglobin Sodium Potassium Chloride Carbon Dioxide BUN Creatinine Glucose POC Glucose 134 H 141 H Calcium Phosphorus Magnesium Direct Bilirubin AST Alkaline Phosphatase C-Reactive Protein Serum Total Protein Total Protein Albumin Prealbumin Osgqx-9-Tuzqeozpb Okbiv-3-Gudrhwxbt Gamma Globulins PEP Interpretation Triglycerides 185 H Urine pH Urine Creatinine Urine Total Protein Vancomycin Trough Digoxin Crossmatch 10/26/19 10/27/19 10/27/19 Unknown 04:30 11:33 WBC RBC Hgb Hct MCHC RDW Plt Count Lymph % (Auto) [place] % (Auto) Lymph # [place] # Seg Neutrophils % Seg Neuts % (Manual) Lymphocytes % (Manual) Seg Neutrophils # Seg Neutrophils # Man Lymphocytes # (Manual) Monocytes # (Manual) POC ABG pH ABG pH POC ABG pCO2 POC ABG pO2 ABG pO2 ABG HCO3 ABG Base Excess ABG Hemoglobin Oxyhemoglobin Sodium Potassium 3.2 L Chloride Carbon Dioxide BUN 23 H Creatinine 0.6 L Glucose 130 H POC Glucose 131 H Calcium 7.9 L Phosphorus Magnesium Direct Bilirubin AST Alkaline Phosphatase C-Reactive Protein Serum Total Protein Total Protein Albumin Prealbumin Zvcea-3-Plppxzbjc Wequj-9-Bpyfiwtto Gamma Globulins PEP Interpretation Triglycerides Urine pH 9.0 H Urine Creatinine Urine Total Protein Vancomycin Trough Digoxin Crossmatch 10/27/19 10/28/19 10/28/19 17:45 05:25 05:49 WBC RBC 2.85 L Hgb 8.3 L Hct 26.8 L MCHC 31 L RDW 17.4 H Plt Count Lymph % (Auto) 8.9 L [place] % (Auto) 14.3 H Lymph # 0.8 L [place] # 1.3 H Seg Neutrophils % 76.5 H Seg Neuts % (Manual) Lymphocytes % (Manual) Seg Neutrophils # Seg Neutrophils # Man Lymphocytes # (Manual) Monocytes # (Manual) POC ABG pH ABG pH POC ABG pCO2 POC ABG pO2 ABG pO2 ABG HCO3 ABG Base Excess ABG Hemoglobin Oxyhemoglobin Sodium Potassium Chloride Carbon Dioxide BUN Creatinine Glucose POC Glucose 121 H 120 H Calcium Phosphorus Magnesium Direct Bilirubin AST Alkaline Phosphatase C-Reactive Protein Serum Total Protein Total Protein Albumin Prealbumin Mtqfj-1-Odmddyfrm Iwlnw-2-Ypgrosgvg Gamma Globulins PEP Interpretation Triglycerides Urine pH Urine Creatinine Urine Total Protein Vancomycin Trough Digoxin Crossmatch 10/28/19 10/28/19 10/28/19 07:19 12:07 18:21 WBC RBC Hgb Hct MCHC RDW Plt Count Lymph % (Auto) [place] % (Auto) Lymph # [place] # Seg Neutrophils % Seg Neuts % (Manual) Lymphocytes % (Manual) Seg Neutrophils # Seg Neutrophils # Man Lymphocytes # (Manual) Monocytes # (Manual) POC ABG pH ABG pH POC ABG pCO2 POC ABG pO2 ABG pO2 ABG HCO3 ABG Base Excess ABG Hemoglobin Oxyhemoglobin Sodium Potassium Chloride Carbon Dioxide BUN 23 H Creatinine 0.5 L Glucose 129 H POC Glucose 127 H 130 H Calcium 8.0 L Phosphorus Magnesium Direct Bilirubin AST Alkaline Phosphatase C-Reactive Protein Serum Total Protein Total Protein Albumin Prealbumin Prfow-3-Awcagyoaf Baary-8-Lnruefofj Gamma Globulins PEP Interpretation Triglycerides Urine pH Urine Creatinine Urine Total Protein Vancomycin Trough Digoxin Crossmatch 10/28/19 10/29/19 10/29/19 23:30 05:30 05:30 WBC 11.2 H RBC 3.36 L Hgb 9.7 L Hct 29.4 L MCHC RDW 16.7 H Plt Count Lymph % (Auto) [place] % (Auto) 16.0 H Lymph # [place] # 1.8 H Seg Neutrophils % 70.2 H Seg Neuts % (Manual) Lymphocytes % (Manual) Seg Neutrophils # 7.9 H Seg Neutrophils # Man Lymphocytes # (Manual) Monocytes # (Manual) POC ABG pH ABG pH POC ABG pCO2 POC ABG pO2 ABG pO2 ABG HCO3 ABG Base Excess ABG Hemoglobin Oxyhemoglobin Sodium Potassium Chloride Carbon Dioxide BUN 23 H Creatinine 0.5 L Glucose POC Glucose 130 H Calcium 8.3 L Phosphorus Magnesium Direct Bilirubin AST Alkaline Phosphatase C-Reactive Protein Serum Total Protein Total Protein Albumin Prealbumin Hneer-3-Qemrxmkmf Xzykj-8-Dsciviqcr Gamma Globulins PEP Interpretation Triglycerides Urine pH Urine Creatinine Urine Total Protein Vancomycin Trough Digoxin Crossmatch 10/29/19 10/29/19 10/29/19 05:52 13:10 18:02 WBC RBC Hgb Hct MCHC RDW Plt Count Lymph % (Auto) [place] % (Auto) Lymph # [place] # Seg Neutrophils % Seg Neuts % (Manual) Lymphocytes % (Manual) Seg Neutrophils # Seg Neutrophils # Man Lymphocytes # (Manual) Monocytes # (Manual) POC ABG pH ABG pH POC ABG pCO2 POC ABG pO2 ABG pO2 ABG HCO3 ABG Base Excess ABG Hemoglobin Oxyhemoglobin Sodium Potassium Chloride Carbon Dioxide BUN Creatinine Glucose POC Glucose 111 H 140 H 140 H Calcium Phosphorus Magnesium Direct Bilirubin AST Alkaline Phosphatase C-Reactive Protein Serum Total Protein Total Protein Albumin Prealbumin Nktyt-2-Jsnevxjxe Zvabd-0-Dawaasjxo Gamma Globulins PEP Interpretation Triglycerides Urine pH Urine Creatinine Urine Total Protein Vancomycin Trough Digoxin Crossmatch 10/29/19 10/30/19 10/30/19 23:58 01:05 05:15 WBC RBC Hgb Hct MCHC RDW Plt Count Lymph % (Auto) [place] % (Auto) Lymph # [place] # Seg Neutrophils % Seg Neuts % (Manual) Lymphocytes % (Manual) Seg Neutrophils # Seg Neutrophils # Man Lymphocytes # (Manual) Monocytes # (Manual) POC ABG pH ABG pH POC ABG pCO2 62.0 H POC ABG pO2 168 H ABG pO2 ABG HCO3 ABG Base Excess ABG Hemoglobin Oxyhemoglobin Sodium 147 H Potassium Chloride 107.8 H Carbon Dioxide BUN 26 H Creatinine 0.5 L Glucose 139 H POC Glucose 161 H Calcium Phosphorus Magnesium 2.40 H Direct Bilirubin AST Alkaline Phosphatase C-Reactive Protein Serum Total Protein Total Protein Albumin Prealbumin Pibyo-8-Auzvnavti Nmnup-2-Gjsbomqfm Gamma Globulins PEP Interpretation Triglycerides Urine pH Urine Creatinine Urine Total Protein Vancomycin Trough Digoxin Crossmatch 10/30/19 10/30/19 10/30/19 05:15 06:32 09:44 WBC 13.8 H RBC 3.59 L Hgb 10.1 L Hct 32.4 L MCHC 31 L RDW 17.4 H Plt Count Lymph % (Auto) 11.2 L [place] % (Auto) 13.6 H Lymph # [place] # 1.9 H Seg Neutrophils % 75.1 H Seg Neuts % (Manual) Lymphocytes % (Manual) Seg Neutrophils # 10.4 H Seg Neutrophils # Man Lymphocytes # (Manual) Monocytes # (Manual) POC ABG pH ABG pH POC ABG pCO2 51.7 H POC ABG pO2 111 H ABG pO2 ABG HCO3 ABG Base Excess ABG Hemoglobin Oxyhemoglobin Sodium Potassium Chloride Carbon Dioxide BUN Creatinine Glucose POC Glucose 141 H Calcium Phosphorus Magnesium Direct Bilirubin AST Alkaline Phosphatase C-Reactive Protein Serum Total Protein Total Protein Albumin Prealbumin Pqvtm-1-Bbbkgjspl Aodso-0-Vxrhvymtw Gamma Globulins PEP Interpretation Triglycerides Urine pH Urine Creatinine Urine Total Protein Vancomycin Trough Digoxin Crossmatch 10/30/19 10/31/19 10/31/19 18:10 04:18 04:18 WBC 11.7 H RBC 3.11 L Hgb 9.0 L Hct 27.9 L MCHC RDW 17.1 H Plt Count Lymph % (Auto) [place] % (Auto) Lymph # [place] # Seg Neutrophils % Seg Neuts % (Manual) Lymphocytes % (Manual) Seg Neutrophils # Seg Neutrophils # Man Lymphocytes # (Manual) Monocytes # (Manual) POC ABG pH ABG pH POC ABG pCO2 POC ABG pO2 ABG pO2 ABG HCO3 ABG Base Excess ABG Hemoglobin Oxyhemoglobin Sodium 148 H Potassium Chloride 108.7 H Carbon Dioxide BUN 37 H Creatinine 0.7 L Glucose 102 H POC Glucose 131 H Calcium Phosphorus Magnesium Direct Bilirubin AST Alkaline Phosphatase C-Reactive Protein Serum Total Protein Total Protein Albumin Prealbumin Eznik-9-Kxfwpohnc Ljexp-4-Ayatfacej Gamma Globulins PEP Interpretation Triglycerides Urine pH Urine Creatinine Urine Total Protein Vancomycin Trough Digoxin Crossmatch 10/31/19 10/31/19 10/31/19 11:32 12:55 18:10 WBC RBC Hgb Hct MCHC RDW Plt Count Lymph % (Auto) [place] % (Auto) Lymph # [place] # Seg Neutrophils % Seg Neuts % (Manual) Lymphocytes % (Manual) Seg Neutrophils # Seg Neutrophils # Man Lymphocytes # (Manual) Monocytes # (Manual) POC ABG pH ABG pH POC ABG pCO2 57.9 H POC ABG pO2 135 H ABG pO2 ABG HCO3 ABG Base Excess ABG Hemoglobin Oxyhemoglobin Sodium Potassium Chloride Carbon Dioxide BUN Creatinine Glucose POC Glucose 120 H Calcium Phosphorus Magnesium Direct Bilirubin AST Alkaline Phosphatase C-Reactive Protein Serum Total Protein Total Protein Albumin Prealbumin Fjvga-1-Xcxhktkdd Dhzhe-9-Gsqceqknv Gamma Globulins PEP Interpretation Triglycerides Urine pH Urine Creatinine Urine Total Protein Vancomycin Trough 41.7 H Digoxin Crossmatch 10/31/19 11/01/19 11/01/19 23:08 05:30 05:30 WBC 14.6 H RBC 3.13 L Hgb 8.9 L Hct 27.7 L MCHC RDW 17.0 H Plt Count Lymph % (Auto) [place] % (Auto) Lymph # [place] # Seg Neutrophils % Seg Neuts % (Manual) Lymphocytes % (Manual) Seg Neutrophils # Seg Neutrophils # Man Lymphocytes # (Manual) Monocytes # (Manual) POC ABG pH ABG pH POC ABG pCO2 POC ABG pO2 ABG pO2 ABG HCO3 ABG Base Excess ABG Hemoglobin Oxyhemoglobin Sodium 149 H Potassium Chloride 109.0 H Carbon Dioxide BUN 26 H Creatinine 0.7 L Glucose 129 H POC Glucose 109 H Calcium Phosphorus Magnesium Direct Bilirubin AST Alkaline Phosphatase C-Reactive Protein Serum Total Protein Total Protein Albumin Prealbumin Jtjld-9-Essrxhcqo Fejoz-0-Onfuzffhn Gamma Globulins PEP Interpretation Triglycerides Urine pH Urine Creatinine Urine Total Protein Vancomycin Trough Digoxin Crossmatch 11/01/19 11/01/19 11/01/19 06:09 06:10 11:52 WBC RBC Hgb Hct MCHC RDW Plt Count Lymph % (Auto) [place] % (Auto) Lymph # [place] # Seg Neutrophils % Seg Neuts % (Manual) Lymphocytes % (Manual) Seg Neutrophils # Seg Neutrophils # Man Lymphocytes # (Manual) Monocytes # (Manual) POC ABG pH ABG pH POC ABG pCO2 51.3 H POC ABG pO2 71 L ABG pO2 ABG HCO3 ABG Base Excess ABG Hemoglobin Oxyhemoglobin Sodium Potassium Chloride Carbon Dioxide BUN Creatinine Glucose POC Glucose 113 H 106 H Calcium Phosphorus Magnesium Direct Bilirubin AST Alkaline Phosphatase C-Reactive Protein Serum Total Protein Total Protein Albumin Prealbumin Mkxcv-1-Fgvcrhjru Xdjwv-7-Nytkugalq Gamma Globulins PEP Interpretation Triglycerides Urine pH Urine Creatinine Urine Total Protein Vancomycin Trough Digoxin Crossmatch 11/01/19 11/02/19 11/02/19 18:18 03:40 03:40 WBC RBC 2.36 L Hgb 7.2 L Hct 20.8 L D MCHC 35 H RDW 16.8 H Plt Count Lymph % (Auto) [place] % (Auto) Lymph # [place] # Seg Neutrophils % Seg Neuts % (Manual) Lymphocytes % (Manual) Seg Neutrophils # Seg Neutrophils # Man Lymphocytes # (Manual) Monocytes # (Manual) POC ABG pH ABG pH POC ABG pCO2 POC ABG pO2 ABG pO2 ABG HCO3 ABG Base Excess ABG Hemoglobin Oxyhemoglobin Sodium 157 H D Potassium 3.0 L D Chloride 117.2 H Carbon Dioxide BUN 23 H Creatinine 0.6 L Glucose 101 H POC Glucose 120 H Calcium 6.4 L D Phosphorus Magnesium Direct Bilirubin AST Alkaline Phosphatase C-Reactive Protein Serum Total Protein Total Protein Albumin Prealbumin Vtdkp-2-Ozcqxqoar Nkmny-4-Epmmijdnv Gamma Globulins PEP Interpretation Triglycerides Urine pH Urine Creatinine Urine Total Protein Vancomycin Trough Digoxin Crossmatch 11/02/19 11/02/19 11/02/19 04:48 05:30 12:43 WBC RBC Hgb Hct MCHC RDW Plt Count Lymph % (Auto) [place] % (Auto) Lymph # [place] # Seg Neutrophils % Seg Neuts % (Manual) Lymphocytes % (Manual) Seg Neutrophils # Seg Neutrophils # Man Lymphocytes # (Manual) Monocytes # (Manual) POC ABG pH ABG pH POC ABG pCO2 50.1 H POC ABG pO2 74 L ABG pO2 ABG HCO3 ABG Base Excess ABG Hemoglobin Oxyhemoglobin Sodium 149 H D Potassium Chloride 110.0 H Carbon Dioxide BUN 23 H Creatinine 0.6 L Glucose POC Glucose 109 H Calcium 8.1 L D Phosphorus Magnesium 2.40 H Direct Bilirubin AST Alkaline Phosphatase C-Reactive Protein Serum Total Protein Total Protein Albumin Prealbumin Fynei-7-Mhbqyegsb Rqpuf-4-Cwscszwev Gamma Globulins PEP Interpretation Triglycerides Urine pH Urine Creatinine Urine Total Protein Vancomycin Trough Digoxin Crossmatch 11/03/19 11/03/19 11/03/19 03:42 03:42 04:13 WBC RBC 2.93 L Hgb 8.5 L Hct 25.8 L MCHC RDW 16.9 H Plt Count Lymph % (Auto) [place] % (Auto) Lymph # [place] # Seg Neutrophils % Seg Neuts % (Manual) Lymphocytes % (Manual) Seg Neutrophils # Seg Neutrophils # Man Lymphocytes # (Manual) Monocytes # (Manual) POC ABG pH 7.540 H ABG pH POC ABG pCO2 POC ABG pO2 51 L ABG pO2 ABG HCO3 ABG Base Excess ABG Hemoglobin Oxyhemoglobin Sodium 147 H Potassium 3.5 L D Chloride 108.6 H Carbon Dioxide BUN Creatinine 0.6 L Glucose 109 H POC Glucose Calcium 8.3 L Phosphorus Magnesium Direct Bilirubin AST Alkaline Phosphatase C-Reactive Protein Serum Total Protein Total Protein Albumin Prealbumin Xpaey-6-Iqxdttclj Oozpu-6-Mjrehmetz Gamma Globulins PEP Interpretation Triglycerides Urine pH Urine Creatinine Urine Total Protein Vancomycin Trough Digoxin Crossmatch 11/03/19 11/03/19 11/03/19 04:28 12:04 23:02 WBC RBC Hgb Hct MCHC RDW Plt Count Lymph % (Auto) [place] % (Auto) Lymph # [place] # Seg Neutrophils % Seg Neuts % (Manual) Lymphocytes % (Manual) Seg Neutrophils # Seg Neutrophils # Man Lymphocytes # (Manual) Monocytes # (Manual) POC ABG pH ABG pH POC ABG pCO2 45.4 H POC ABG pO2 ABG pO2 ABG HCO3 ABG Base Excess ABG Hemoglobin Oxyhemoglobin Sodium Potassium Chloride Carbon Dioxide BUN Creatinine Glucose POC Glucose 109 H 111 H Calcium Phosphorus Magnesium Direct Bilirubin AST Alkaline Phosphatase C-Reactive Protein Serum Total Protein Total Protein Albumin Prealbumin Hygum-6-Wkyelnkml Oytvy-7-Zvfooawwa Gamma Globulins PEP Interpretation Triglycerides Urine pH Urine Creatinine Urine Total Protein Vancomycin Trough Digoxin Crossmatch 11/04/19 11/04/19 11/04/19 05:00 05:00 05:19 WBC RBC 2.96 L Hgb 8.6 L Hct 25.5 L MCHC RDW 16.7 H Plt Count Lymph % (Auto) [place] % (Auto) Lymph # [place] # Seg Neutrophils % Seg Neuts % (Manual) Lymphocytes % (Manual) Seg Neutrophils # Seg Neutrophils # Man Lymphocytes # (Manual) Monocytes # (Manual) POC ABG pH ABG pH POC ABG pCO2 POC ABG pO2 ABG pO2 ABG HCO3 ABG Base Excess ABG Hemoglobin Oxyhemoglobin Sodium Potassium 3.5 L Chloride Carbon Dioxide BUN Creatinine 0.5 L Glucose 111 H POC Glucose 106 H Calcium 8.1 L Phosphorus Magnesium Direct Bilirubin AST Alkaline Phosphatase C-Reactive Protein Serum Total Protein Total Protein Albumin Prealbumin Xmjoj-6-Gbpifspuy Toten-2-Aojawxpxm Gamma Globulins PEP Interpretation Triglycerides Urine pH Urine Creatinine Urine Total Protein Vancomycin Trough Digoxin Crossmatch 11/04/19 11/05/19 11/05/19 12:40 00:28 04:19 WBC 12.4 H RBC 2.98 L Hgb 8.5 L Hct 25.5 L MCHC RDW 16.6 H Plt Count Lymph % (Auto) [place] % (Auto) Lymph # [place] # Seg Neutrophils % Seg Neuts % (Manual) Lymphocytes % (Manual) Seg Neutrophils # Seg Neutrophils # Man Lymphocytes # (Manual) Monocytes # (Manual) POC ABG pH ABG pH POC ABG pCO2 POC ABG pO2 ABG pO2 ABG HCO3 ABG Base Excess ABG Hemoglobin Oxyhemoglobin Sodium Potassium Chloride Carbon Dioxide BUN Creatinine Glucose POC Glucose 109 H 132 H Calcium Phosphorus Magnesium Direct Bilirubin AST Alkaline Phosphatase C-Reactive Protein Serum Total Protein Total Protein Albumin Prealbumin Uexrp-6-Bkenagrct Iitvo-1-Aonqqcrzk Gamma Globulins PEP Interpretation Triglycerides Urine pH Urine Creatinine Urine Total Protein Vancomycin Trough Digoxin Crossmatch 11/05/19 11/05/19 11/05/19 04:19 05:40 13:14 WBC RBC Hgb Hct MCHC RDW Plt Count Lymph % (Auto) [place] % (Auto) Lymph # [place] # Seg Neutrophils % Seg Neuts % (Manual) Lymphocytes % (Manual) Seg Neutrophils # Seg Neutrophils # Man Lymphocytes # (Manual) Monocytes # (Manual) POC ABG pH ABG pH POC ABG pCO2 POC ABG pO2 ABG pO2 ABG HCO3 ABG Base Excess ABG Hemoglobin Oxyhemoglobin Sodium Potassium 3.4 L Chloride Carbon Dioxide BUN Creatinine 0.4 L Glucose 106 H POC Glucose 136 H 145 H Calcium 8.2 L Phosphorus Magnesium Direct Bilirubin AST Alkaline Phosphatase C-Reactive Protein Serum Total Protein Total Protein Albumin Prealbumin Aovwj-3-Qblrxrvoq Vlpxt-2-Pkrxqlqux Gamma Globulins PEP Interpretation Triglycerides Urine pH Urine Creatinine Urine Total Protein Vancomycin Trough Digoxin Crossmatch 11/05/19 11/05/19 11/06/19 18:29 23:42 05:00 WBC 12.2 H RBC 2.89 L Hgb 8.2 L Hct 24.9 L MCHC RDW 16.4 H Plt Count Lymph % (Auto) [place] % (Auto) Lymph # [place] # Seg Neutrophils % Seg Neuts % (Manual) Lymphocytes % (Manual) Seg Neutrophils # Seg Neutrophils # Man Lymphocytes # (Manual) Monocytes # (Manual) POC ABG pH ABG pH POC ABG pCO2 POC ABG pO2 ABG pO2 ABG HCO3 ABG Base Excess ABG Hemoglobin Oxyhemoglobin Sodium Potassium Chloride Carbon Dioxide BUN Creatinine Glucose POC Glucose 138 H 117 H Calcium Phosphorus Magnesium Direct Bilirubin AST Alkaline Phosphatase C-Reactive Protein Serum Total Protein Total Protein Albumin Prealbumin Eaglu-8-Qthtoronu Gveee-7-Ehtvscoit Gamma Globulins PEP Interpretation Triglycerides Urine pH Urine Creatinine Urine Total Protein Vancomycin Trough Digoxin Crossmatch 11/06/19 11/06/19 11/06/19 05:00 05:22 17:39 WBC RBC Hgb Hct MCHC RDW Plt Count Lymph % (Auto) [place] % (Auto) Lymph # [place] # Seg Neutrophils % Seg Neuts % (Manual) Lymphocytes % (Manual) Seg Neutrophils # Seg Neutrophils # Man Lymphocytes # (Manual) Monocytes # (Manual) POC ABG pH ABG pH POC ABG pCO2 POC ABG pO2 ABG pO2 ABG HCO3 ABG Base Excess ABG Hemoglobin Oxyhemoglobin Sodium Potassium Chloride Carbon Dioxide BUN Creatinine 0.4 L Glucose 114 H POC Glucose 121 H 110 H Calcium 8.2 L Phosphorus Magnesium Direct Bilirubin AST Alkaline Phosphatase C-Reactive Protein Serum Total Protein Total Protein Albumin Prealbumin Cfozo-4-Ukxeogasx Hdnvp-4-Uasedyrjx Gamma Globulins PEP Interpretation Triglycerides Urine pH Urine Creatinine Urine Total Protein Vancomycin Trough Digoxin Crossmatch 11/06/19 11/07/19 11/07/19 23:29 04:06 04:06 WBC 13.0 H RBC 2.80 L Hgb 7.9 L Hct 24.0 L MCHC RDW 16.5 H Plt Count Lymph % (Auto) 7.0 L [place] % (Auto) Lymph # 0.9 L [place] # Seg Neutrophils % 86.3 H Seg Neuts % (Manual) Lymphocytes % (Manual) Seg Neutrophils # 11.2 H Seg Neutrophils # Man Lymphocytes # (Manual) Monocytes # (Manual) POC ABG pH ABG pH POC ABG pCO2 POC ABG pO2 ABG pO2 ABG HCO3 ABG Base Excess ABG Hemoglobin Oxyhemoglobin Sodium Potassium Chloride Carbon Dioxide BUN Creatinine 0.4 L Glucose 110 H POC Glucose 113 H Calcium 8.2 L Phosphorus Magnesium Direct Bilirubin AST Alkaline Phosphatase C-Reactive Protein Serum Total Protein Total Protein Albumin Prealbumin Fjbwn-5-Ztymqxnna Uzqzj-8-Vmugbnltx Gamma Globulins PEP Interpretation Triglycerides Urine pH Urine Creatinine Urine Total Protein Vancomycin Trough Digoxin Crossmatch 11/07/19 11/07/19 11/07/19 05:43 12:47 18:19 WBC RBC Hgb Hct MCHC RDW Plt Count Lymph % (Auto) [place] % (Auto) Lymph # [place] # Seg Neutrophils % Seg Neuts % (Manual) Lymphocytes % (Manual) Seg Neutrophils # Seg Neutrophils # Man Lymphocytes # (Manual) Monocytes # (Manual) POC ABG pH ABG pH POC ABG pCO2 POC ABG pO2 ABG pO2 ABG HCO3 ABG Base Excess ABG Hemoglobin Oxyhemoglobin Sodium Potassium Chloride Carbon Dioxide BUN Creatinine Glucose POC Glucose 114 H 120 H 112 H Calcium Phosphorus Magnesium Direct Bilirubin AST Alkaline Phosphatase C-Reactive Protein Serum Total Protein Total Protein Albumin Prealbumin Uskzr-3-Jzhwccwqd Dlpdy-7-Kcwcnzxlj Gamma Globulins PEP Interpretation Triglycerides Urine pH Urine Creatinine Urine Total Protein Vancomycin Trough Digoxin Crossmatch 11/08/19 11/08/19 11/08/19 03:45 03:45 11:43 WBC 12.7 H RBC 2.82 L Hgb 7.8 L Hct 24.4 L MCHC RDW 16.5 H Plt Count Lymph % (Auto) 9.4 L [place] % (Auto) Lymph # [place] # 0.9 H Seg Neutrophils % 83.0 H Seg Neuts % (Manual) Lymphocytes % (Manual) Seg Neutrophils # 10.6 H Seg Neutrophils # Man Lymphocytes # (Manual) Monocytes # (Manual) POC ABG pH ABG pH POC ABG pCO2 POC ABG pO2 ABG pO2 ABG HCO3 ABG Base Excess ABG Hemoglobin Oxyhemoglobin Sodium Potassium Chloride Carbon Dioxide BUN Creatinine 0.4 L Glucose 107 H POC Glucose 118 H Calcium Phosphorus Magnesium Direct Bilirubin AST Alkaline Phosphatase C-Reactive Protein Serum Total Protein Total Protein Albumin Prealbumin Uninm-4-Cpnoviazl Ffhln-2-Qpthvzbku Gamma Globulins PEP Interpretation Triglycerides Urine pH Urine Creatinine Urine Total Protein Vancomycin Trough Digoxin Crossmatch 11/08/19 23:45 WBC RBC Hgb Hct MCHC RDW Plt Count Lymph % (Auto) [place] % (Auto) Lymph # [place] # Seg Neutrophils % Seg Neuts % (Manual) Lymphocytes % (Manual) Seg Neutrophils # Seg Neutrophils # Man Lymphocytes # (Manual) Monocytes # (Manual) POC ABG pH ABG pH POC ABG pCO2 POC ABG pO2 ABG pO2 ABG HCO3 ABG Base Excess ABG Hemoglobin Oxyhemoglobin Sodium Potassium Chloride Carbon Dioxide BUN Creatinine Glucose POC Glucose 113 H Calcium Phosphorus Magnesium Direct Bilirubin AST Alkaline Phosphatase C-Reactive Protein Serum Total Protein Total Protein Albumin Prealbumin Myirz-0-Gkxgmbiul Cvzwd-3-Mbonunckd Gamma Globulins PEP Interpretation Triglycerides Urine pH Urine Creatinine Urine Total Protein Vancomycin Trough Digoxin Crossmatch Chest x-ray: report reviewed, image reviewed
--- NOTE | 2019-11-09 12:35 | Progress Note ---
Assessment and Plan Assessment and plan: Sepsis, recurrent. Etiology likely secondary to fluid collection/abscess in the abdomen and anastomotic leak. Given recent prolonged exposure to abx and TPN, at risk of MDR infections, ID started empiric Meropenem and Micafungin Dehiscence of closure of fascia * Went to OR for ex lap with closure of abdominal wall and wound vac placement (10/05) * Continued to decline with possible Air vs fluid, 10/10/19 IR went in and placed two drains, Noted to have possible fecal material * Returned to the OR 10/13/19 due to concern for intra-abdominal infection and was found to have with heavy contamination of abdomen patent had disruption of bowel anastomosis, abdominal washout, abthera placement and colon stapled transection and left bowel enterotomy from anastomosis completely open * Returned to OR on 10/16/19 for abdominal washout, Partial Omentectomy, Partial Colectomy, Colostomy Creation and AbThera Placement * Abdominal washout and closure - 10/22 * cont wound care Acute Respiratory failure with hypoxia -Extubated 10/25/19 - Re-intubated 10/30 -Patient self extubated morning of 11/04, now on Oxygen by NC -Book Packer following -Multifactorial secondary to pneumonia, pneumothorax and COPD Sepsis On Merrem, Micafungin ID Physician following right sump drain fell out Surgeon following Left pneumothorax s/p chest tube placed 10/30 Chest tube with no air leak or significant output. Chest x-ray with no obvious signs of pneumothorax. Pulmonary considering to remove chest tube soon Left lower lobe pneumonia -CTA chest showed left lower lobe consolidation with pleural effusion COPD -Stable -cont neb tx GUILLERMO on CKD -due to ATN due to sepsis -Improving, will monitor -SPEP and UPEP pending -No hydronephrosis on CT -[place] in place, monitor I/O's Severe Metabolic acidosis -Improved Acute Toxic Metabolic Encephalopathy/Delirium Tremens -Started on CIWA protocol due to hx of ETOH abuse, 6packs a day -Head CT scan negative for acute findings Acute blood loss anemia -H/H stable -Continue to monitor H&H and transfuse for hb<7 SVT, Atrial fib/flutter with RVR -treated with adenosine x1 -off amiodarone and cardizem drip. On oral amiodarone and IV Lopressor. -HR currently controlled -Cardiology following Hypotension -Off esmolol drip -s/p IV fluid boluses, BP stable Hypophosphatemia -will monitor level Hypernatremia start D5W Hypokalemia Replace iv Hx of Hypertension -Stable Hyperlipidemia -stable Atypical chest pain -probably secondary to pneumonitis -troponin levels neg Hx of MN/CAD -s/p PCI of the circumflex and second vessel POBA of the distal LAD occlusion. Left ventricle fraction of 45-50%. Morbid obesity with BMI of 43.4 -Lifestyle modification recommended Moderate Protein calorie malnutrition secondary to surgery -On TPN -Nutrition following Tobacco abuse -Cessation recommended Morbid obesity with BMI of 43.4 -Lifestyle modification recommended DVT and GI ppx: Lovenox/PPI Disp: Prognosis guarded The high probability of a clinically significant, sudden or life threatening deterioration of the [respiratory] system(s) required my full and direct attention, intervention and personal management. The aggregate critical care time was [33] minutes. This time is in addition to time spent performing reported procedures but includes the following: [x] Data Review and interpretation [x] Patient assessment and monitoring of vital signs [x] Documentation [x] Medication orders and management History Interval history: Patient self extubated. Hospitalist Physical - Constitutional Vitals: Temp Pulse Resp BP Pulse Ox 99.9 F H 83 17 126/72 95 11/09/19 08:00 11/09/19 11:00 11/09/19 11:00 11/09/19 11:00 11/09/19 11:00 General appearance: Present: no acute distress, obese - EENT Eyes: Present: PERRL, EOM intact ENT: hearing intact, clear oral mucosa, dentition normal - Neck Neck: Present: supple, normal ROM - Respiratory Respiratory effort: normal Respiratory: bilateral: CTA - Cardiovascular Rhythm: regular Heart Sounds: Present: S1 & S2. Absent: gallop, rub - Extremities Extremities: no ischemia, No edema, Full ROM - Abdominal General gastrointestinal: soft, non-tender, non-distended, normal bowel sounds, other (Abdominal wound dressing clean dry and intact) - Integumentary Integumentary: Present: clear, warm, dry - Neurologic Neurologic: CNII-XII intact, moves all extremities Results - Labs CBC & Chem 7: 11/08/19 03:45 11/08/19 03:45 Labs: Laboratory Last Values WBC 12.7 K/mm3 (4.5-11.0) H 11/08/19 03:45 RBC 2.82 M/mm3 (3.65-5.03) L 11/08/19 03:45 Hgb 7.8 gm/dl (11.8-15.2) L 11/08/19 03:45 Hct 24.4 % (35.5-45.6) L 11/08/19 03:45 MCV 87 fl (84-94) 11/08/19 03:45 MCH 28 pg (28-32) 11/08/19 03:45 MCHC 32 % (32-34) 11/08/19 03:45 RDW 16.5 % (13.2-15.2) H 11/08/19 03:45 Plt Count 298 K/mm3 (140-440) 11/08/19 03:45 Lymph % (Auto) 9.4 % (13.4-35.0) L 11/08/19 03:45 [place] % (Auto) 6.9 % (0.0-7.3) 11/08/19 03:45 Eos % (Auto) 0.4 % (0.0-4.3) 11/08/19 03:45 Baso % (Auto) 0.3 % (0.0-1.8) 11/08/19 03:45 Lymph # 1.2 K/mm3 (1.2-5.4) 11/08/19 03:45 [place] # 0.9 K/mm3 (0.0-0.8) H 11/08/19 03:45 Eos # 0.1 K/mm3 (0.0-0.4) 11/08/19 03:45 Baso # 0.0 K/mm3 (0.0-0.1) 11/08/19 03:45 Add Manual Diff Complete 10/16/19 09:20 Total Counted 100 10/16/19 09:20 Seg Neutrophils % 83.0 % (40.0-70.0) H 11/08/19 03:45 Seg Neuts % (Manual) 79.0 % (40.0-70.0) H 10/16/19 09:20 Band Neutrophils % 12.0 % 10/16/19 09:20 Lymphocytes % (Manual) 4.0 % (13.4-35.0) L 10/16/19 09:20 Reactive Lymphs % (Man) 0 % 10/16/19 09:20 Monocytes % (Manual) 2.0 % (0.0-7.3) 10/16/19 09:20 Eosinophils % (Manual) 0 % (0.0-4.3) 10/16/19 09:20 Basophils % (Manual) 0 % (0.0-1.8) 10/16/19 09:20 Metamyelocytes % 2.0 % 10/16/19 09:20 Myelocytes % 1.0 % 10/16/19 09:20 Promyelocytes % 0 % 10/16/19 09:20 Blast Cells % 0 % 10/16/19 09:20 Nucleated RBC % Not Reportable 10/16/19 09:20 Seg Neutrophils # 10.6 K/mm3 (1.8-7.7) H 11/08/19 03:45 Seg Neutrophils # Man 11.5 K/mm3 (1.8-7.7) H 10/16/19 09:20 Band Neutrophils # 1.8 K/mm3 10/16/19 09:20 Lymphocytes # (Manual) 0.6 K/mm3 (1.2-5.4) L 10/16/19 09:20 Abs React Lymphs (Man) 0.0 K/mm3 10/16/19 09:20 Monocytes # (Manual) 0.3 K/mm3 (0.0-0.8) 10/16/19 09:20 Eosinophils # (Manual) 0.0 K/mm3 (0.0-0.4) 10/16/19 09:20 Basophils # (Manual) 0.0 K/mm3 (0.0-0.1) 10/16/19 09:20 Metamyelocytes # 0.3 K/mm3 10/16/19 09:20 Myelocytes # 0.1 K/mm3 10/16/19 09:20 Promyelocytes # 0.0 K/mm3 10/16/19 09:20 Blast Cells # 0.0 K/mm3 10/16/19 09:20 WBC Morphology Not Reportable 10/16/19 09:20 Hypersegmented Neuts Not Reportable 10/16/19 09:20 Hyposegmented Neuts Not Reportable 10/16/19 09:20 Hypogranular Neuts Not Reportable 10/16/19 09:20 Smudge Cells Not Reportable 10/16/19 09:20 Toxic Granulation Not Reportable 10/16/19 09:20 Toxic Vacuolation Not Reportable 10/16/19 09:20 Dohle Bodies Not Reportable 10/16/19 09:20 Pelger-Huet Anomaly Not Reportable 10/16/19 09:20 Andres Rods Not Reportable 10/16/19 09:20 Platelet Estimate Consistent w auto 10/16/19 09:20 Clumped Platelets Not Reportable 10/16/19 09:20 Plt Clumps, EDTA Not Reportable 10/16/19 09:20 Large Platelets Not Reportable 10/16/19 09:20 Giant Platelets Not Reportable 10/16/19 09:20 Platelet Satelliting Not Reportable 10/16/19 09:20 Plt Morphology Comment Not Reportable 10/16/19 09:20 RBC Morphology Not Reportable 10/16/19 09:20 Dimorphic RBCs Not Reportable 10/16/19 09:20 Polychromasia Few 10/16/19 09:20 Hypochromasia Few 10/16/19 09:20 Poikilocytosis Not Reportable 10/16/19 09:20 Anisocytosis Not Reportable 10/16/19 09:20 Microcytosis Not Reportable 10/16/19 09:20 Macrocytosis Not Reportable 10/16/19 09:20 Spherocytes Not Reportable 10/16/19 09:20 Pappenheimer Bodies Not Reportable 10/16/19 09:20 Sickle Cells Not Reportable 10/16/19 09:20 Target Cells Few 10/16/19 09:20 Tear Drop Cells Not Reportable 10/16/19 09:20 Ovalocytes Not Reportable 10/16/19 09:20 Helmet Cells Not Reportable 10/16/19 09:20 [place] Bodies Not Reportable 10/16/19 09:20 [place] Rings Not Reportable 10/16/19 09:20 [place] Cells Not Reportable 10/16/19 09:20 Bite Cells Not Reportable 10/16/19 09:20 Crenated Cell Not Reportable 10/16/19 09:20 Elliptocytes Not Reportable 10/16/19 09:20 Acanthocytes (Spur) Not Reportable 10/16/19 09:20 Rouleaux Not Reportable 10/16/19 09:20 Hemoglobin C Crystals Not Reportable 10/16/19 09:20 Schistocytes Not Reportable 10/16/19 09:20 Malaria parasites Not Reportable 10/16/19 09:20 Toni Bodies Not Reportable 10/16/19 09:20 Hem Pathologist Commnt No 10/16/19 09:20 POC ABG pH 7.422 (7.35-7.45) 11/03/19 04:28 ABG pH 7.390 pH Units (7.350-7.450) 10/23/19 04:47 POC ABG pCO2 45.4 (35-45) H 11/03/19 04:28 ABG pCO2 48.4 mm Hg 10/23/19 04:47 POC ABG pO2 83 (80-105) 11/03/19 04:28 ABG pO2 68.9 mm Hg (80.0-90.0) L 10/23/19 04:47 POC ABG HCO3 29.6 (22-26 mml/L) 11/03/19 04:28 ABG HCO3 28.7 mmol/L (20.0-26.0) H 10/23/19 04:47 POC ABG Total CO2 31 (23-27mmol/L) 11/03/19 04:28 POC ABG O2 Sat 96 11/03/19 04:28 ABG O2 Saturation 96.6 % (95.0-99.0) 10/23/19 04:47 ABG O2 Content 8.8 (0.0-44) 10/23/19 04:47 POC ABG Base Excess 5 ((-2) - (+3)mmol/L) 11/03/19 04:28 ABG Base Excess 3.4 mmol/L (-2.0-3.0) H 10/23/19 04:47 ABG Hemoglobin 6.6 gm/dl (14.0-18.0) L 10/23/19 04:47 ABG Carboxyhemoglobin 2.1 % (0.0-5.0) 10/23/19 04:47 ABG Methemoglobin 0.5 % (0.0-1.5) 10/23/19 04:47 Oxyhemoglobin 94.1 % (95.0-99.0) L 10/23/19 04:47 FiO2 40 % 11/03/19 04:28 Sodium 141 mmol/L (137-145) 11/08/19 03:45 Potassium 3.7 mmol/L (3.6-5.0) 11/08/19 03:45 Chloride 98.6 mmol/L (98-107) 11/08/19 03:45 Carbon Dioxide 30 mmol/L (22-30) 11/08/19 03:45 Anion Gap 16 mmol/L 11/08/19 03:45 BUN 13 mg/dL (9-20) 11/08/19 03:45 Creatinine 0.4 mg/dL (0.8-1.5) L 11/08/19 03:45 Estimated GFR > 60 ml/min 11/08/19 03:45 BUN/Creatinine Ratio 33 % 11/08/19 03:45 Glucose 107 mg/dL (75-100) H 11/08/19 03:45 POC Glucose 104 (70-105) 11/09/19 05:06 Hemoglobin A1c 5.7 % (4-6) 10/06/19 05:36 Lactic Acid 1.10 mmol/L (0.7-2.0) 10/13/19 04:20 Calcium 8.6 mg/dL (8.4-10.2) 11/08/19 03:45 Ionized Calcium 5.2 mg/dL (4.8-5.6) 10/18/19 07:41 Phosphorus 2.70 mg/dL (2.5-4.5) 11/02/19 12:43 Magnesium 2.40 mg/dL (1.7-2.3) H 11/02/19 12:43 Total Bilirubin 1.10 mg/dL (0.1-1.2) 10/26/19 06:15 Direct Bilirubin 0.7 mg/dL (0-0.2) H 10/23/19 10:44 Indirect Bilirubin 0.1 mg/dL 10/23/19 10:44 AST 23 units/L (5-40) 10/26/19 06:15 ALT 13 units/L (7-56) 10/26/19 06:15 Alkaline Phosphatase 148 units/L (35-129) H 10/26/19 06:15 Ammonia 49.0 umol/L (25-60) 10/13/19 04:20 Troponin T < 0.010 ng/mL (0.00-0.029) 10/09/19 17:23 C-Reactive Protein 30.60 mg/dL (0.00-1.30) H 10/15/19 04:32 Serum Total Protein 5.2 g/dL (6.1-8.1) L 10/11/19 09:00 Total Protein 5.9 g/dL (6.3-8.2) L 10/26/19 06:15 Albumin 2.4 g/dL (3.9-5) L 10/26/19 06:15 Albumin/Globulin Ratio 0.7 % 10/26/19 06:15 Prealbumin 0.030 g/L (0.200-0.400) L 10/15/19 04:32 [id number] See scanned result 10/11/19 Unknown [id number] See scanned result 10/11/19 Unknown Beta Globulins See scanned result 10/11/19 Unknown Gamma Globulins See scanned result 10/11/19 Unknown Abnorm Protein Band 1 see below 10/11/19 09:00 PEP Interpretation See scanned result 10/11/19 Unknown Triglycerides 185 mg/dL (2-149) H 10/26/19 06:15 Urine Color Yellow (Yellow) 10/26/19 Unknown Urine Turbidity Clear (Clear) 10/26/19 Unknown Urine pH 9.0 (5.0-7.0) H 10/26/19 Unknown Ur Specific [employer] 1.011 (1.003-1.030) 10/26/19 Unknown Urine Protein 30 mg/dl mg/dL (Negative) 10/26/19 Unknown Urine Glucose (UA) Neg mg/dL (Negative) 10/26/19 Unknown Urine Ketones Neg mg/dL (Negative) 10/26/19 Unknown Urine Blood Neg (Negative) 10/26/19 Unknown Urine Nitrite Neg (Negative) 10/26/19 Unknown Urine Bilirubin Neg (Negative) 10/26/19 Unknown Urine Urobilinogen < 2.0 mg/dL (<2.0) 10/26/19 Unknown Ur Leukocyte Esterase Neg (Negative) 10/26/19 Unknown Urine WBC (Auto) 1.0 /HPF (0.0-6.0) 10/26/19 Unknown Urine RBC (Auto) 1.0 /HPF (0.0-6.0) 10/26/19 Unknown Urine Bacteria (Auto) 1+ /HPF (Negative) 10/11/19 06:23 Urine Mucus Few /HPF 10/26/19 Unknown Urine Eosinophils None seen (None Seen) 10/11/19 06:23 Ur Random Creatinine See scanned result 10/11/19 Unknown U Random Total Protein See scanned result 10/11/19 Unknown Urine Creatinine 116.8 mg/dL (0.1-20.0) H 10/11/19 06:23 Urine Creatinine 118.2 mg/dL (0.1-20.0) H 10/11/19 06:23 Protein/Creatinin Ratio See scanned result 10/11/19 Unknown Urine Sodium 14 mmol/L 10/11/19 06:23 Urine Total Protein 104 mg/dL (5-11.8) H 10/11/19 06:23 Urine Total Protein 105 mg/dL (5-11.8) H 10/11/19 06:23 U Abnormal Prot Band 1 See scanned result 10/11/19 Unknown U Abnormal Prot Band 2 See scanned result 10/11/19 Unknown U Abnormal Prot Band 3 See scanned result 10/11/19 Unknown Vancomycin Trough 5.7 ug/mL (5.0-20.0) 11/05/19 09:00 Random Vancomycin 9.6 ug/mL (0-40.0) 11/03/19 03:42 Digoxin 0.7 ng/mL (0.9-2.0) L 10/19/19 04:21 Blood Type A POSITIVE 10/23/19 11:50 Antibody Screen Negative 10/23/19 11:50 Crossmatch See Detail 10/23/19 11:50 Active Medications - Current Medications Current Medications: Generic Name Dose Route Start Last Admin Trade Name Freq PRN Reason Stop Dose Admin Acetaminophen 650 mg 10/25/19 13:00 11/03/19 16:03 Tylenol FEEDTUBE 650 mg Q4H PRN Administration Fever >100.5 Acetaminophen/Hydrocodone Bitart 7.5 mg 11/07/19 16:57 Hydrocodone/Apap 7.5-325 FEEDTUBE Q4H PRN Pain, Moderate (4-6) Albuterol/Ipratropium 1 ampul 10/06/19 02:00 11/09/19 08:03 Duoneb *Not For Prn Use* IH 1 ampul Q6HRT VERÓNICA Administration Amiodarone HCl 200 mg 10/23/19 13:00 11/09/19 09:56 Cordarone PO 200 mg QDAY VERÓNICA Administration Lipase/Protease/Amylase 1 each 10/20/19 10:37 Shaggy Moreno 10,500 Unit FEEDTUBE PRN PRN For Clogged Feeding Tube Arformoterol Tartrate 15 mcg 10/06/19 08:30 11/09/19 08:03 Brovana Nebu IH 15 mcg Q12HRT VERÓNICA Administration Budesonide 0.5 mg 10/07/19 12:20 11/09/19 08:03 Pulmicort IH 0.5 mg Q12HRT VERÓNICA Administration Citalopram Hydrobromide 20 mg 10/27/19 12:00 11/09/19 09:56 Celexa PO 20 mg DAILY VERÓNICA Administration Enoxaparin Sodium 40 mg 11/05/19 22:00 11/08/19 22:06 Enoxaparin SUB-Q 40 mg QDAY@2200 VERÓNICA Administration Haloperidol Lactate 5 mg 10/25/19 18:22 11/03/19 21:22 Haldol IV 5 mg Q6H PRN Administration Agitation Hydralazine HCl 10 mg 10/28/19 14:09 11/02/19 15:34 Apresoline IV 10 mg Q4HR PRN Administration Hypertension Hydromorphone HCl 2 mg 10/25/19 12:35 11/09/19 12:27 Dilaudid IV 2 mg Q4H PRN Administration Pain , Severe (7-10) Insulin Human Lispro 0 unit 10/14/19 12:00 11/09/19 12:31 Humalog SUB-Q Not Given Q6HR [facility] Protocol Lisinopril 20 mg 10/30/19 10:00 11/09/19 09:55 Zestril PO 20 mg QDAY VERÓNICA Administration Metoprolol Tartrate 2.5 mg 10/15/19 15:34 11/01/19 18:00 Metoprolol IV 2.5 mg Q4HR PRN Administration HR >130 Metoprolol Tartrate 50 mg 10/25/19 14:00 11/09/19 05:53 Metoprolol PO 50 mg Q8HR VERÓNICA Administration Multi-Ingred Cream/Lotion/Oil/Oint 1 applic 10/14/19 02:19 Artificial Tears Ophth Oint OU Q4HR PRN Dry Eye(s) Pantoprazole Sodium 40 mg 10/15/19 10:00 11/09/19 09:55 Protonix IV 40 mg QDAY VERÓNICA Administration Simple Syrup 15 ml 10/20/19 10:37 Simple Syrup FEEDTUBE PRN PRN Hypoglycemia Simple Syrup 30 ml 10/20/19 10:37 Simple Syrup FEEDTUBE PRN PRN Hypoglycemia Sodium Bicarbonate 325 mg 10/20/19 10:37 Sodium Bicarbonate FEEDTUBE PRN PRN For Clogged Feeding Tube Sodium Chloride 10 ml 11/07/19 19:32 11/08/19 09:10 Sodium Chloride Flush Syringe 10 Ml IV 10 ml PRN PRN Administration LINE FLUSH Nutrition/Malnutrition Assess - Dietary Evaluation Nutrition/Malnutrition Findings: Nutrition Notes Start: 10/08/19 11:36 Freq: Status: Active Protocol: Document 11/05/19 11:30 LM (Rec: 11/05/19 11:39 LM [id number]) Nutrition Notes Initial or Follow up Reassessment Other Pertinent Diagnosis intra-abdominal infection, disruption of bowel anastomosis, LE edema Current Diet Osmolite 1.5 at 60 ml/hr Labs/Tests K 3.4 Cr 0.4 BG 106 HgbA1C 5.7 Pertinent Medications Reviewed Height 6 ft Weight 145 kg [place] Body Weight (kg) 80.90 BMI 43.3 Weight Status Morbidly Obese Subjective/Other Information Osmolite running at 60 ml/hr. Pt tolerating new TF. Percent of energy/protein needs met: 100%/66% Burn Absent Trauma Absent GI Symptoms None Current % PO Negligible Minimum of two criteria No physical signs of malnutrition Fluid Accumulation Mild (non-severe) #2 Nutrition Diagnosis Inadequate oral intake Diagnosis Progress(for reassessment Continues documentation) #1 Nutrition Diagnosis Increased nutrient needs ( specify in comment below) Diagnosis Progress(for reassessment Continues documentation) Is patient on ventilator? No Is Patient Ambulatory and/or Out of Bed No REE-([facility]-confined to bed) 2785.236 Kcal/Kg value to use for calculation 14 Approximate Energy Requirements Using 2030 kcal/Kg Calculation Used for Recommendations Kcal/kg Additional Notes Protein: 136-169g (1.2-1.5g/kg ) AdjBW 113kg Fluid 1 ml/kcal or per MD Nutrition Intervention Change Diet Order: Continue TF Nutrition Support: Osmolite 1.5 at 60 ml/hr Flush 170 ml q4hr Kcal 2,160 Protein (gm) 90 Fluid (mL) 1,097 Goal #1 Meet at least 80% of kcal/ protein needs via TF Goal #2 TF tolerance Anticipated Discharge Needs: unable to determine at this time Follow-Up By: 11/12/19 Additional Comments F/U for TF tolerance
--- NOTE | 2019-11-09 13:08 | Event Note ---
Date: 11/09/19 Called to bedside by ALAYNA. Drainage collection was noted under the wound vac sponge. This was the same appearance as the output from the left abdominal drains. Discussed options. We decided to place a 14Fr red rubber catheter in the opening and then try replacing the wound vac. we connected the catheter to wall suction and it appeared to be controlling the drainage well. The path was in the direction towards the end of the sigmoid stump. This was probably an undrained/poorly drained area. at bedside. Explained findings and plan.
[2019-11-09] MEDS: ENOXAPARIN 40 MG/0.4 ML INJ SUB-Q SCH (22:16)
[2019-11-10] MEDS: HYDROmorphone 2 MG/1 ML INJ IV PRN ×5 (00:34→22:01)
[2019-11-10] MEDS: INSULIN LISPRO 100 UNIT/ML SUB-Q SCH ×4 (00:51→20:49)
[2019-11-10] MEDS: IPRATROPIUM/ALBUTEROL SULFATE 3 ML AMPUL.NEB IH SCH ×4 (02:15→19:34)
[2019-11-10] MEDS: METOPROLOL TARTRATE 50 MG TAB PO SCH ×3 (05:14→21:18)
[2019-11-10] MEDS: ARFORMOTEROL 15 MCG/2 ML NEBU IH SCH ×2 (07:14→19:34)
[2019-11-10] MEDS: BUDESONIDE 0.5 MG/2 ML NEBU IH SCH ×2 (07:15→19:34)
--- NOTE | 2019-11-10 09:32 | Progress Note ---
Assessment and Plan - Patient Problems (1) Dehiscence of closure of fascia, superficial or muscular Current Visit: No Status: Acute Qualifiers: Encounter type: initial encounter Qualified Code(s): T81.32XA - Disruption of internal operation (surgical) wound, not elsewhere classified, initial encounter Plan to address problem: Pt stable. s/p ex lap with closure of abdominal wall and wound vac placement (10/05) - POD#36; s/p Re-exploration, washout, transection of colon, Abthera placement - 10/13 - POD#28; s/p abd washout, partial omentectomy, partial colectomy with colostomy - 10/16 POD#25. s/p abd washout, feeding tube placement, AbThera placement - 10/19 - POD#22; Abdominal washout and closure - 10/22 - POD#19 Patient appears stable. WBC stable, but no fevers. Looks much better today. Rec: 1) Neuro - self-extubated 11/04. 2) CV - BP normal today 3) Resp - On NC. Small bore CT on left. Mgmt per ICU team. Respiratory rate much better. 4) GI - Ostomy looks good. Functioning. Sump drains - Right drain was accidentally pulled out (10/30). Left one is still functioning. New small bore catheter placed 10/30 - moderate output after drain was stripped. Appears like stool. Plan to connect both to wall suction - continuous. Output slowly trending down. Midline drain - seems to be working well. may eventually become main drain and we can remove the two left sided drains if their output is minimal. Wound Vac - wound looked good on last check. continue wound vac. Ostomy - functioning now. Some solid stool in bag. Gastric Port - Appears to be tolerating the clamping. Residuals are minimal (occasional high numbers). Ok to give water flushes in place of IVFs Rectal tube (malecot) - placed to help decompress rectosigmoid area. Ok if there is drainage around the tube. Irrigation BID. Will consider removal the week of Nov 26. 5) - BUN/Cr stable. 6) ID - Abx per ID. Enterococcus on cultures. If patient has worsening labs/vitals, then rescan and place additional drains as appropriate. Discussed Abx plan with Dr. Lorenzo. I am ok with trial off Abx, 7) Nutrition - Tube feeds at goal. Would consider Speech therapy eval again for swallowing. Ok to give free water flushes via gastric port. Will try ice chips for comfort today 8) DVT prophylaxis - SCDs. Lovenox 9) Family -no family at bedside. Communicated with over the phone 10) PT - will need rehab. Note: Spoke with [place] surgeon on 11/01/19 about possible transfer. They reviewed the notes that were sent and we discussed the case. They felt that they had nothing else to offer. They agreed with our management. Also agreed that another exploration should not be done. If needed, additional drains can be placed. They did suggest putting a Malecot tube in the rectum to decompress that area. (That has been done). This conversation was communicated to the . Please call with questions. Subjective Date of service: 11/10/19 Patient Reports: Positive: no new complaints, feels better, pain is less. Negative: nausea, vomiting Objective Vital Signs - 12hr 11/09/19 11/09/19 11/09/19 21:30 22:00 22:16 Temperature Pulse Rate 84 82 82 Pulse Rate [ Anterior Bilateral Throughout] Pulse Rate [ 79 From Monitor] Respiratory 15 15 Rate Respiratory Rate [Anterior Bilateral Throughout] Blood Pressure 127/72 112/49 112/49 O2 Sat by Pulse 99 97 Oximetry 11/09/19 11/09/19 11/09/19 22:30 22:59 23:00 Temperature 98.4 F Pulse Rate 82 85 Pulse Rate [ Anterior Bilateral Throughout] Pulse Rate [ From Monitor] Respiratory 18 19 Rate Respiratory Rate [Anterior Bilateral Throughout] Blood Pressure 114/63 110/59 O2 Sat by Pulse 98 97 Oximetry 11/09/19 11/10/19 11/10/19 23:30 00:00 00:30 Temperature Pulse Rate 88 83 81 Pulse Rate [ Anterior Bilateral Throughout] Pulse Rate [ 82 From Monitor] Respiratory 17 19 14 Rate Respiratory Rate [Anterior Bilateral Throughout] Blood Pressure 112/63 112/56 114/56 O2 Sat by Pulse 96 97 Oximetry 11/10/19 11/10/19 11/10/19 00:34 01:00 01:04 Temperature Pulse Rate 83 Pulse Rate [ Anterior Bilateral Throughout] Pulse Rate [ From Monitor] Respiratory 14 13 14 Rate Respiratory Rate [Anterior Bilateral Throughout] Blood Pressure 126/61 O2 Sat by Pulse 98 Oximetry 11/10/19 11/10/19 11/10/19 01:30 02:00 02:15 Temperature Pulse Rate 85 81 Pulse Rate [ 83 Anterior Bilateral Throughout] Pulse Rate [ From Monitor] Respiratory 15 14 Rate Respiratory 14 Rate [Anterior Bilateral Throughout] Blood Pressure 105/60 115/60 O2 Sat by Pulse 94 96 Oximetry 11/10/19 11/10/19 11/10/19 02:30 03:00 03:30 Temperature Pulse Rate 84 84 83 Pulse Rate [ Anterior Bilateral Throughout] Pulse Rate [ From Monitor] Respiratory 17 18 22 Rate Respiratory Rate [Anterior Bilateral Throughout] Blood Pressure 111/55 111/58 116/64 O2 Sat by Pulse 97 96 98 Oximetry 11/10/19 11/10/19 11/10/19 04:00 04:31 05:00 Temperature Pulse Rate 84 89 83 Pulse Rate [ Anterior Bilateral Throughout] Pulse Rate [ 82 From Monitor] Respiratory 21 20 20 Rate Respiratory Rate [Anterior Bilateral Throughout] Blood Pressure 112/68 112/68 111/57 O2 Sat by Pulse 97 94 97 Oximetry 11/10/19 11/10/19 11/10/19 05:14 07:15 07:17 Temperature Pulse Rate 85 Pulse Rate [ 86 Anterior Bilateral Throughout] Pulse Rate [ From Monitor] Respiratory Rate Respiratory 14 Rate [Anterior Bilateral Throughout] Blood Pressure 111/57 O2 Sat by Pulse 97 Oximetry 11/10/19 08:00 Temperature 98.2 F Pulse Rate Pulse Rate [ Anterior Bilateral Throughout] Pulse Rate [ From Monitor] Respiratory Rate Respiratory Rate [Anterior Bilateral Throughout] Blood Pressure O2 Sat by Pulse Oximetry - General physical appearance no distress, no pain, obese, other (looks better. more energy today) - Respiratory normal expansion, normal respiratory effort - Abdomen soft, not tender, not distended, other (Gastric - thicker, yellow residual. midline drain - working well. Wound vac intact. Small amount of fluid under sponge. Left abdominal drains patent. ) - Psychiatric oriented to time, oriented to person, oriented to place, speech is normal, memory intact - Labs 11/08/19 03:45 11/08/19 03:45
[2019-11-10] MEDS: PANTOPRAZOLE 40 MG INJ IV SCH (10:48)
[2019-11-10] MEDS: LISINOPRIL 20 MG TAB PO SCH (10:49)
[2019-11-10] MEDS: CITALOPRAM 20 MG TAB PO SCH (10:49)
[2019-11-10] MEDS: AMIODARONE 200 MG TAB PO SCH (10:49)
--- NOTE | 2019-11-10 12:01 | Progress Note ---
Assessment and Plan Assessment and plan: Sepsis, recurrent. Etiology likely secondary to fluid collection/abscess in the abdomen and anastomotic leak. Given recent prolonged exposure to abx and TPN, at risk of MDR infections, ID started empiric Meropenem and Micafungin Dehiscence of closure of fascia * Went to OR for ex lap with closure of abdominal wall and wound vac placement (10/05) * Continued to decline with possible Air vs fluid, 10/10/19 IR went in and placed two drains, Noted to have possible fecal material * Returned to the OR 10/13/19 due to concern for intra-abdominal infection and was found to have with heavy contamination of abdomen patent had disruption of bowel anastomosis, abdominal washout, abthera placement and colon stapled transection and left bowel enterotomy from anastomosis completely open * Returned to OR on 10/16/19 for abdominal washout, Partial Omentectomy, Partial Colectomy, Colostomy Creation and AbThera Placement * Abdominal washout and closure - 10/22 * cont wound care Acute Respiratory failure with hypoxia -Extubated 10/25/19 -Re-intubated 10/30 -Patient self extubated morning of 11/04, now on Oxygen by NC -Staff [employer] Weapons Officer following -Multifactorial secondary to pneumonia, pneumothorax and COPD Sepsis On Merrem, Micafungin ID Physician following right sump drain fell out Surgeon following Left pneumothorax s/p chest tube placed 10/30 Chest tube with no air leak or significant output. Chest x-ray with no obvious signs of pneumothorax. Pulmonary considering to remove chest tube soon Left lower lobe pneumonia -CTA chest showed left lower lobe consolidation with pleural effusion COPD -Stable -cont neb tx GUILLERMO on CKD -due to ATN due to sepsis -Improving, will monitor -SPEP and UPEP pending -No hydronephrosis on CT -[place] in place, monitor I/O's Severe Metabolic acidosis -Improved Acute Toxic Metabolic Encephalopathy/Delirium Tremens -Started on CIWA protocol due to hx of ETOH abuse, 6packs a day -Head CT scan negative for acute findings Acute blood loss anemia -H/H stable -Continue to monitor H&H and transfuse for hb<7 SVT, Atrial fib/flutter with RVR -treated with adenosine x1 -off amiodarone and cardizem drip. On oral amiodarone and IV Lopressor. -HR currently controlled -Cardiology following Hypotension -Off esmolol drip -s/p IV fluid boluses, BP stable Hypophosphatemia -will monitor level Hypernatremia start D5W Hypokalemia Replace iv Hx of Hypertension -Stable Hyperlipidemia -stable Atypical chest pain -probably secondary to pneumonitis -troponin levels neg Hx of KS/CAD -s/p PCI of the circumflex and second vessel POBA of the distal LAD occlusion. Left ventricle fraction of 45-50%. Morbid obesity with BMI of 43.4 -Lifestyle modification recommended Moderate Protein calorie malnutrition secondary to surgery -On TPN -Nutrition following Tobacco abuse -Cessation recommended Morbid obesity with BMI of 43.4 -Lifestyle modification recommended DVT and GI ppx: Lovenox/PPI Disp: Prognosis guarded The high probability of a clinically significant, sudden or life threatening deterioration of the [respiratory] system(s) required my full and direct attention, intervention and personal management. The aggregate critical care time was [32] minutes. This time is in addition to time spent performing reported procedures but includes the following: [x] Data Review and interpretation [x] Patient assessment and monitoring of vital signs [x] Documentation [x] Medication orders and management History Interval history: No new issues overnight Hospitalist Physical - Constitutional Vitals: Temp Pulse Resp BP Pulse Ox 98.2 F 85 20 70/42 95 11/10/19 08:00 11/10/19 11:01 11/10/19 11:01 11/10/19 11:01 11/10/19 11:01 General appearance: Present: no acute distress, obese - EENT Eyes: Present: PERRL, EOM intact ENT: hearing intact, clear oral mucosa, dentition normal - Neck Neck: Present: supple, normal ROM - Respiratory Respiratory effort: normal Respiratory: bilateral: CTA - Cardiovascular Rhythm: regular Heart Sounds: Present: S1 & S2. Absent: gallop, rub - Extremities Extremities: no ischemia, No edema, Full ROM - Abdominal General gastrointestinal: soft, non-tender, non-distended, normal bowel sounds - Integumentary Integumentary: Present: clear, warm, dry - Neurologic Neurologic: CNII-XII intact, moves all extremities Results - Labs CBC & Chem 7: 11/08/19 03:45 11/08/19 03:45 Labs: Laboratory Last Values WBC 12.7 K/mm3 (4.5-11.0) H 11/08/19 03:45 RBC 2.82 M/mm3 (3.65-5.03) L 11/08/19 03:45 Hgb 7.8 gm/dl (11.8-15.2) L 11/08/19 03:45 Hct 24.4 % (35.5-45.6) L 11/08/19 03:45 MCV 87 fl (84-94) 11/08/19 03:45 MCH 28 pg (28-32) 11/08/19 03:45 MCHC 32 % (32-34) 11/08/19 03:45 RDW 16.5 % (13.2-15.2) H 11/08/19 03:45 Plt Count 298 K/mm3 (140-440) 11/08/19 03:45 Lymph % (Auto) 9.4 % (13.4-35.0) L 11/08/19 03:45 [place] % (Auto) 6.9 % (0.0-7.3) 11/08/19 03:45 Eos % (Auto) 0.4 % (0.0-4.3) 11/08/19 03:45 Baso % (Auto) 0.3 % (0.0-1.8) 11/08/19 03:45 Lymph # 1.2 K/mm3 (1.2-5.4) 11/08/19 03:45 [place]ila # 0.9 K/mm3 (0.0-0.8) H 11/08/19 03:45 Eos # 0.1 K/mm3 (0.0-0.4) 11/08/19 03:45 Baso # 0.0 K/mm3 (0.0-0.1) 11/08/19 03:45 Add Manual Diff Complete 10/16/19 09:20 Total Counted 100 10/16/19 09:20 Seg Neutrophils % 83.0 % (40.0-70.0) H 11/08/19 03:45 Seg Neuts % (Manual) 79.0 % (40.0-70.0) H 10/16/19 09:20 Band Neutrophils % 12.0 % 10/16/19 09:20 Lymphocytes % (Manual) 4.0 % (13.4-35.0) L 10/16/19 09:20 Reactive Lymphs % (Man) 0 % 10/16/19 09:20 Monocytes % (Manual) 2.0 % (0.0-7.3) 10/16/19 09:20 Eosinophils % (Manual) 0 % (0.0-4.3) 10/16/19 09:20 Basophils % (Manual) 0 % (0.0-1.8) 10/16/19 09:20 Metamyelocytes % 2.0 % 10/16/19 09:20 Myelocytes % 1.0 % 10/16/19 09:20 Promyelocytes % 0 % 10/16/19 09:20 Blast Cells % 0 % 10/16/19 09:20 Nucleated RBC % Not Reportable 10/16/19 09:20 Seg Neutrophils # 10.6 K/mm3 (1.8-7.7) H 11/08/19 03:45 Seg Neutrophils # Man 11.5 K/mm3 (1.8-7.7) H 10/16/19 09:20 Band Neutrophils # 1.8 K/mm3 10/16/19 09:20 Lymphocytes # (Manual) 0.6 K/mm3 (1.2-5.4) L 10/16/19 09:20 Abs React Lymphs (Man) 0.0 K/mm3 10/16/19 09:20 Monocytes # (Manual) 0.3 K/mm3 (0.0-0.8) 10/16/19 09:20 Eosinophils # (Manual) 0.0 K/mm3 (0.0-0.4) 10/16/19 09:20 Basophils # (Manual) 0.0 K/mm3 (0.0-0.1) 10/16/19 09:20 Metamyelocytes # 0.3 K/mm3 10/16/19 09:20 Myelocytes # 0.1 K/mm3 10/16/19 09:20 Promyelocytes # 0.0 K/mm3 10/16/19 09:20 Blast Cells # 0.0 K/mm3 10/16/19 09:20 WBC Morphology Not Reportable 10/16/19 09:20 Hypersegmented Neuts Not Reportable 10/16/19 09:20 Hyposegmented Neuts Not Reportable 10/16/19 09:20 Hypogranular Neuts Not Reportable 10/16/19 09:20 Smudge Cells Not Reportable 10/16/19 09:20 Toxic Granulation Not Reportable 10/16/19 09:20 Toxic Vacuolation Not Reportable 10/16/19 09:20 Dohle Bodies Not Reportable 10/16/19 09:20 Pelger-Huet Anomaly Not Reportable 10/16/19 09:20 Andres Rods Not Reportable 10/16/19 09:20 Platelet Estimate Consistent w auto 10/16/19 09:20 Clumped Platelets Not Reportable 10/16/19 09:20 Plt Clumps, EDTA Not Reportable 10/16/19 09:20 Large Platelets Not Reportable 10/16/19 09:20 Giant Platelets Not Reportable 10/16/19 09:20 Platelet Satelliting Not Reportable 10/16/19 09:20 Plt Morphology Comment Not Reportable 10/16/19 09:20 RBC Morphology Not Reportable 10/16/19 09:20 Dimorphic RBCs Not Reportable 10/16/19 09:20 Polychromasia Few 10/16/19 09:20 Hypochromasia Few 10/16/19 09:20 Poikilocytosis Not Reportable 10/16/19 09:20 Anisocytosis Not Reportable 10/16/19 09:20 Microcytosis Not Reportable 10/16/19 09:20 Macrocytosis Not Reportable 10/16/19 09:20 Spherocytes Not Reportable 10/16/19 09:20 Pappenheimer Bodies Not Reportable 10/16/19 09:20 Sickle Cells Not Reportable 10/16/19 09:20 Target Cells Few 10/16/19 09:20 Tear Drop Cells Not Reportable 10/16/19 09:20 Ovalocytes Not Reportable 10/16/19 09:20 Helmet Cells Not Reportable 10/16/19 09:20 [place] Bodies Not Reportable 10/16/19 09:20 [place] Rings Not Reportable 10/16/19 09:20 [place] Cells Not Reportable 10/16/19 09:20 Bite Cells Not Reportable 10/16/19 09:20 Crenated Cell Not Reportable 10/16/19 09:20 Elliptocytes Not Reportable 10/16/19 09:20 Acanthocytes (Spur) Not Reportable 10/16/19 09:20 Rouleaux Not Reportable 10/16/19 09:20 Hemoglobin C Crystals Not Reportable 10/16/19 09:20 Schistocytes Not Reportable 10/16/19 09:20 Malaria parasites Not Reportable 10/16/19 09:20 Toni Bodies Not Reportable 10/16/19 09:20 Hem Pathologist Commnt No 10/16/19 09:20 POC ABG pH 7.422 (7.35-7.45) 11/03/19 04:28 ABG pH 7.390 pH Units (7.350-7.450) 10/23/19 04:47 POC ABG pCO2 45.4 (35-45) H 11/03/19 04:28 ABG pCO2 48.4 mm Hg 10/23/19 04:47 POC ABG pO2 83 (80-105) 11/03/19 04:28 ABG pO2 68.9 mm Hg (80.0-90.0) L 10/23/19 04:47 POC ABG HCO3 29.6 (22-26 mml/L) 11/03/19 04:28 ABG HCO3 28.7 mmol/L (20.0-26.0) H 10/23/19 04:47 POC ABG Total CO2 31 (23-27mmol/L) 11/03/19 04:28 POC ABG O2 Sat 96 11/03/19 04:28 ABG O2 Saturation 96.6 % (95.0-99.0) 10/23/19 04:47 ABG O2 Content 8.8 (0.0-44) 10/23/19 04:47 POC ABG Base Excess 5 ((-2) - (+3)mmol/L) 11/03/19 04:28 ABG Base Excess 3.4 mmol/L (-2.0-3.0) H 10/23/19 04:47 ABG Hemoglobin 6.6 gm/dl (14.0-18.0) L 10/23/19 04:47 ABG Carboxyhemoglobin 2.1 % (0.0-5.0) 10/23/19 04:47 ABG Methemoglobin 0.5 % (0.0-1.5) 10/23/19 04:47 Oxyhemoglobin 94.1 % (95.0-99.0) L 10/23/19 04:47 FiO2 40 % 11/03/19 04:28 Sodium 141 mmol/L (137-145) 11/08/19 03:45 Potassium 3.7 mmol/L (3.6-5.0) 11/08/19 03:45 Chloride 98.6 mmol/L (98-107) 11/08/19 03:45 Carbon Dioxide 30 mmol/L (22-30) 11/08/19 03:45 Anion Gap 16 mmol/L 11/08/19 03:45 BUN 13 mg/dL (9-20) 11/08/19 03:45 Creatinine 0.4 mg/dL (0.8-1.5) L 11/08/19 03:45 Estimated GFR > 60 ml/min 11/08/19 03:45 BUN/Creatinine Ratio 33 % 11/08/19 03:45 Glucose 107 mg/dL (75-100) H 11/08/19 03:45 POC Glucose 127 (70-105) H 11/10/19 05:12 Hemoglobin A1c 5.7 % (4-6) 10/06/19 05:36 Lactic Acid 1.10 mmol/L (0.7-2.0) 10/13/19 04:20 Calcium 8.6 mg/dL (8.4-10.2) 11/08/19 03:45 Ionized Calcium 5.2 mg/dL (4.8-5.6) 10/18/19 07:41 Phosphorus 2.70 mg/dL (2.5-4.5) 11/02/19 12:43 Magnesium 2.40 mg/dL (1.7-2.3) H 11/02/19 12:43 Total Bilirubin 1.10 mg/dL (0.1-1.2) 10/26/19 06:15 Direct Bilirubin 0.7 mg/dL (0-0.2) H 10/23/19 10:44 Indirect Bilirubin 0.1 mg/dL 10/23/19 10:44 AST 23 units/L (5-40) 10/26/19 06:15 ALT 13 units/L (7-56) 10/26/19 06:15 Alkaline Phosphatase 148 units/L (35-129) H 10/26/19 06:15 Ammonia 49.0 umol/L (25-60) 10/13/19 04:20 Troponin T < 0.010 ng/mL (0.00-0.029) 10/09/19 17:23 C-Reactive Protein 30.60 mg/dL (0.00-1.30) H 10/15/19 04:32 Serum Total Protein 5.2 g/dL (6.1-8.1) L 10/11/19 09:00 Total Protein 5.9 g/dL (6.3-8.2) L 10/26/19 06:15 Albumin 2.4 g/dL (3.9-5) L 10/26/19 06:15 Albumin/Globulin Ratio 0.7 % 10/26/19 06:15 Prealbumin 0.030 g/L (0.200-0.400) L 10/15/19 04:32 [id number] See scanned result 10/11/19 Unknown [id number] See scanned result 10/11/19 Unknown Beta Globulins See scanned result 10/11/19 Unknown Gamma Globulins See scanned result 10/11/19 Unknown Abnorm Protein Band 1 see below 10/11/19 09:00 PEP Interpretation See scanned result 10/11/19 Unknown Triglycerides 185 mg/dL (2-149) H 10/26/19 06:15 Urine Color Yellow (Yellow) 10/26/19 Unknown Urine Turbidity Clear (Clear) 10/26/19 Unknown Urine pH 9.0 (5.0-7.0) H 10/26/19 Unknown Ur Specific [place] 1.011 (1.003-1.030) 10/26/19 Unknown Urine Protein 30 mg/dl mg/dL (Negative) 10/26/19 Unknown Urine Glucose (UA) Neg mg/dL (Negative) 10/26/19 Unknown Urine Ketones Neg mg/dL (Negative) 10/26/19 Unknown Urine Blood Neg (Negative) 10/26/19 Unknown Urine Nitrite Neg (Negative) 10/26/19 Unknown Urine Bilirubin Neg (Negative) 10/26/19 Unknown Urine Urobilinogen < 2.0 mg/dL (<2.0) 10/26/19 Unknown Ur Leukocyte Esterase Neg (Negative) 10/26/19 Unknown Urine WBC (Auto) 1.0 /HPF (0.0-6.0) 10/26/19 Unknown Urine RBC (Auto) 1.0 /HPF (0.0-6.0) 10/26/19 Unknown Urine Bacteria (Auto) 1+ /HPF (Negative) 10/11/19 06:23 Urine Mucus Few /HPF 10/26/19 Unknown Urine Eosinophils None seen (None Seen) 10/11/19 06:23 Ur Random Creatinine See scanned result 10/11/19 Unknown U Random Total Protein See scanned result 10/11/19 Unknown Urine Creatinine 116.8 mg/dL (0.1-20.0) H 10/11/19 06:23 Urine Creatinine 118.2 mg/dL (0.1-20.0) H 10/11/19 06:23 Protein/Creatinin Ratio See scanned result 10/11/19 Unknown Urine Sodium 14 mmol/L 10/11/19 06:23 Urine Total Protein 104 mg/dL (5-11.8) H 10/11/19 06:23 Urine Total Protein 105 mg/dL (5-11.8) H 10/11/19 06:23 U Abnormal Prot Band 1 See scanned result 10/11/19 Unknown U Abnormal Prot Band 2 See scanned result 10/11/19 Unknown U Abnormal Prot Band 3 See scanned result 10/11/19 Unknown Vancomycin Trough 5.7 ug/mL (5.0-20.0) 11/05/19 09:00 Random Vancomycin 9.6 ug/mL (0-40.0) 11/03/19 03:42 Digoxin 0.7 ng/mL (0.9-2.0) L 10/19/19 04:21 Blood Type A POSITIVE 10/23/19 11:50 Antibody Screen Negative 10/23/19 11:50 Crossmatch See Detail 10/23/19 11:50 Active Medications - Current Medications Current Medications: Generic Name Dose Route Start Last Admin Trade Name Freq PRN Reason Stop Dose Admin Acetaminophen 650 mg 10/25/19 13:00 11/03/19 16:03 Tylenol FEEDTUBE 650 mg Q4H PRN Administration Fever >100.5 Acetaminophen/Hydrocodone Bitart 7.5 mg 11/07/19 16:57 Hydrocodone/Apap 7.5-325 FEEDTUBE Q4H PRN Pain, Moderate (4-6) Albuterol/Ipratropium 1 ampul 10/06/19 02:00 11/10/19 07:13 Duoneb *Not For Prn Use* IH Not Given Q6HRT [facility] Amiodarone HCl 200 mg 10/23/19 13:00 11/10/19 10:49 Cordarone PO 200 mg QDAY [facility] Administration Lipase/Protease/Amylase 1 each 10/20/19 10:37 Shaggy Moreno 10,500 Unit FEEDTUBE PRN PRN For Clogged Feeding Tube Arformoterol Tartrate 15 mcg 10/06/19 08:30 11/10/19 07:14 Brovana Nebu IH 15 mcg Q12HRT VERÓNICA Administration Budesonide 0.5 mg 10/07/19 12:20 11/10/19 07:15 Pulmicort IH 0.5 mg Q12HRT [facility] Administration Citalopram Hydrobromide 20 mg 10/27/19 12:00 11/10/19 10:49 Celexa PO 20 mg DAILY VERÓNICA Administration Enoxaparin Sodium 40 mg 11/05/19 22:00 11/09/19 22:16 Enoxaparin SUB-Q 40 mg QDAY@2200 [facility] Administration Haloperidol Lactate 5 mg 10/25/19 18:22 11/03/19 21:22 Haldol IV 5 mg Q6H PRN Administration Agitation Hydralazine HCl 10 mg 10/28/19 14:09 11/02/19 15:34 Apresoline IV 10 mg Q4HR PRN Administration Hypertension Hydromorphone HCl 2 mg 10/25/19 12:35 11/10/19 05:22 Dilaudid IV 2 mg Q4H PRN Administration Pain , Severe (7-10) Insulin Human Lispro 0 unit 10/14/19 12:00 11/10/19 07:44 Humalog SUB-Q Not Given Q6HR [facility] Protocol Lisinopril 20 mg 10/30/19 10:00 11/10/19 10:49 Zestril PO 20 mg QDAY [facility] Administration Metoprolol Tartrate 2.5 mg 10/15/19 15:34 11/01/19 18:00 Metoprolol IV 2.5 mg Q4HR PRN Administration HR >130 Metoprolol Tartrate 50 mg 10/25/19 14:00 11/10/19 05:14 Metoprolol PO 50 mg Q8HR [facility] Administration Multi-Ingred Cream/Lotion/Oil/Oint 1 applic 10/14/19 02:19 Artificial Tears Ophth Oint OU Q4HR PRN Dry Eye(s) Pantoprazole Sodium 40 mg 10/15/19 10:00 11/10/19 10:48 Protonix IV 40 mg QDAY VERÓNICA Administration Simple Syrup 15 ml 10/20/19 10:37 Simple Syrup FEEDTUBE PRN PRN Hypoglycemia Simple Syrup 30 ml 10/20/19 10:37 Simple Syrup FEEDTUBE PRN PRN Hypoglycemia Sodium Bicarbonate 325 mg 10/20/19 10:37 Sodium Bicarbonate FEEDTUBE PRN PRN For Clogged Feeding Tube Sodium Chloride 10 ml 11/07/19 19:32 11/08/19 09:10 Sodium Chloride Flush Syringe 10 Ml IV 10 ml PRN PRN Administration LINE FLUSH Zolpidem Tartrate 5 mg 11/10/19 21:00 Ambien FEEDTUBE QHS PRN Sleep Nutrition/Malnutrition Assess - Dietary Evaluation Nutrition/Malnutrition Findings: Nutrition Notes Start: 10/08/19 11:36 Freq: Status: Active Protocol: Document 11/05/19 11:30 LM (Rec: 11/05/19 11:39 LM [email or web address]) Nutrition Notes Initial or Follow up Reassessment Other Pertinent Diagnosis intra-abdominal infection, disruption of bowel anastomosis, LE edema Current Diet Osmolite 1.5 at 60 ml/hr Labs/Tests K 3.4 Cr 0.4 BG 106 HgbA1C 5.7 Pertinent Medications Reviewed Height 6 ft Weight 145 kg [place] Body Weight (kg) 80.90 BMI 43.3 Weight Status Morbidly Obese Subjective/Other Information Osmolite running at 60 ml/hr. Pt tolerating new TF. Percent of energy/protein needs met: 100%/66% Burn Absent Trauma Absent GI Symptoms None Current % PO Negligible Minimum of two criteria No physical signs of malnutrition Fluid Accumulation Mild (non-severe) #2 Nutrition Diagnosis Inadequate oral intake Diagnosis Progress(for reassessment Continues documentation) #1 Nutrition Diagnosis Increased nutrient needs ( specify in comment below) Diagnosis Progress(for reassessment Continues documentation) Is patient on ventilator? No Is Patient Ambulatory and/or Out of Bed No REE-([facility]-confined to bed) 2785.236 Kcal/Kg value to use for calculation 14 Approximate Energy Requirements Using 2030 kcal/Kg Calculation Used for Recommendations Kcal/kg Additional Notes Protein: 136-169g (1.2-1.5g/kg ) AdjBW 113kg Fluid 1 ml/kcal or per MD Nutrition Intervention Change Diet Order: Continue TF Nutrition Support: Osmolite 1.5 at 60 ml/hr Flush 170 ml q4hr Kcal 2,160 Protein (gm) 90 Fluid (mL) 1,097 Goal #1 Meet at least 80% of kcal/ protein needs via TF Goal #2 TF tolerance Anticipated Discharge Needs: unable to determine at this time Follow-Up By: 11/12/19 Additional Comments F/U for TF tolerance
--- NOTE | 2019-11-10 14:43 | Progress Note ---
Assessment and Plan Imp: 1. Colon perforation/peritonitis/anastamotic leak s/p multiple surgeries 2. Sepsis 3. Acute respiratory failure, hypoxia 4. Obesity 5. KALI 6. Centrilobular emphysema, severe 7. Chronic nicotine dependence, cigarettes 8. HTN 9. CAD s/p PCI 10. Ischemic cardiomyopathy 11. PTX on L, resolved Rec: 1. ABX per ID 2. Wean O2 to keep sats 88% or > 3. Cont. current nebs 4. Optimize nutrition; monitor elytes; agree with ST re-eval. of swallowing prior to taking PO 5. DVT PPx 6. Stop smoking 7. Chest tube with no air leak and no significant output; no obvious PTX on most recent CXR; will see if IR can remove it Subjective Date of service: 11/10/19 Principal diagnosis: acute renal failure Interval history: No significant shortness of breath, no new complaints Objective Vital Signs - 12hr 11/10/19 11/10/19 11/10/19 03:00 03:30 04:00 Temperature Pulse Rate 84 83 84 Pulse Rate [ Anterior Bilateral Throughout] Pulse Rate [ 82 From Monitor] Respiratory 18 22 21 Rate Respiratory Rate [Anterior Bilateral Throughout] Blood Pressure 111/58 116/64 112/68 O2 Sat by Pulse 96 98 97 Oximetry 11/10/19 11/10/19 11/10/19 04:31 05:00 05:14 Temperature Pulse Rate 89 83 85 Pulse Rate [ Anterior Bilateral Throughout] Pulse Rate [ From Monitor] Respiratory 20 20 Rate Respiratory Rate [Anterior Bilateral Throughout] Blood Pressure 112/68 111/57 111/57 O2 Sat by Pulse 94 97 Oximetry 11/10/19 11/10/19 11/10/19 05:30 06:00 06:30 Temperature Pulse Rate 82 85 83 Pulse Rate [ Anterior Bilateral Throughout] Pulse Rate [ From Monitor] Respiratory 14 13 14 Rate Respiratory Rate [Anterior Bilateral Throughout] Blood Pressure 119/63 110/53 126/54 O2 Sat by Pulse 99 97 95 Oximetry 11/10/19 11/10/19 11/10/19 07:00 07:15 07:17 Temperature Pulse Rate 83 Pulse Rate [ 86 Anterior Bilateral Throughout] Pulse Rate [ From Monitor] Respiratory 14 Rate Respiratory 14 Rate [Anterior Bilateral Throughout] Blood Pressure 111/57 O2 Sat by Pulse 97 97 Oximetry 11/10/19 11/10/19 11/10/19 07:30 08:00 08:30 Temperature 98.2 F Pulse Rate 82 80 85 Pulse Rate [ Anterior Bilateral Throughout] Pulse Rate [ 80 From Monitor] Respiratory 15 12 16 Rate Respiratory Rate [Anterior Bilateral Throughout] Blood Pressure 111/51 120/57 113/58 O2 Sat by Pulse 98 99 97 Oximetry 11/10/19 11/10/19 11/10/19 09:00 09:30 10:00 Temperature Pulse Rate 87 87 88 Pulse Rate [ Anterior Bilateral Throughout] Pulse Rate [ From Monitor] Respiratory 17 17 15 Rate Respiratory Rate [Anterior Bilateral Throughout] Blood Pressure 122/65 120/61 114/60 O2 Sat by Pulse 95 98 95 Oximetry 11/10/19 11/10/19 11/10/19 10:30 10:49 11:01 Temperature Pulse Rate 86 85 85 Pulse Rate [ Anterior Bilateral Throughout] Pulse Rate [ From Monitor] Respiratory 20 20 Rate Respiratory Rate [Anterior Bilateral Throughout] Blood Pressure 116/69 116/69 70/42 O2 Sat by Pulse 95 95 Oximetry 11/10/19 11/10/19 11/10/19 12:00 13:12 14:16 Temperature 98.7 F Pulse Rate 88 Pulse Rate [ 88 Anterior Bilateral Throughout] Pulse Rate [ From Monitor] Respiratory Rate Respiratory 16 Rate [Anterior Bilateral Throughout] Blood Pressure 115/59 O2 Sat by Pulse Oximetry Constitutional: no acute distress, alert, other (obese) Eyes: non-icteric ENT: oropharynx moist Neck: supple Effort: normal Ascultation: Bilateral: diminished breath sounds (bases) Cardiovascular: regular rate and rhythm (no mrg) Gastrointestinal: tender, other (obese, distended, ostomy in place; wound vac in place) Integumentary: normal Extremities: no cyanosis, pink and warm, edema (1+ bilateral LE edema) Neurologic: normal mental status, non-focal exam, pupils equal and round Psychiatric: mood appropriate, affect normal CBC and BMP: 11/08/19 03:45 11/08/19 03:45 ABG, PT/INR, D-dimer: ABG POC ABG pH 7.422 (7.35-7.45) 11/03/19 04:28 ABG pH 7.390 pH Units (7.350-7.450) 10/23/19 04:47 POC ABG pCO2 45.4 (35-45) H 11/03/19 04:28 ABG pCO2 48.4 mm Hg 10/23/19 04:47 POC ABG pO2 83 (80-105) 11/03/19 04:28 ABG pO2 68.9 mm Hg (80.0-90.0) L 10/23/19 04:47 POC ABG HCO3 29.6 (22-26 mml/L) 11/03/19 04:28 POC ABG Total CO2 31 (23-27mmol/L) 11/03/19 04:28 POC ABG O2 Sat 96 11/03/19 04:28 ABG O2 Saturation 96.6 % (95.0-99.0) 10/23/19 04:47 Abnormal lab findings: Abnormal Labs 10/06/19 10/06/19 10/07/19 05:36 05:36 05:54 WBC 21.8 H 21.5 H RBC 3.55 L Hgb 10.9 L Hct 32.7 L MCHC RDW Plt Count Lymph % (Auto) [place] % (Auto) Lymph # [place] # Seg Neutrophils % Seg Neuts % (Manual) 91.0 H Lymphocytes % (Manual) 2.0 L Seg Neutrophils # Seg Neutrophils # Man 19.8 H Lymphocytes # (Manual) 0.4 L Monocytes # (Manual) 1.1 H POC ABG pH ABG pH POC ABG pCO2 POC ABG pO2 ABG pO2 ABG HCO3 ABG Base Excess ABG Hemoglobin Oxyhemoglobin Sodium 135 L Potassium Chloride 95.9 L Carbon Dioxide BUN Creatinine 0.7 L Glucose POC Glucose Calcium Phosphorus Magnesium Direct Bilirubin AST Alkaline Phosphatase C-Reactive Protein Serum Total Protein Total Protein 5.7 L Albumin 2.5 L Prealbumin Vlrza-0-Rafvsdzhm Hlrcr-3-Hhvmitwmk Gamma Globulins PEP Interpretation Triglycerides Urine pH Urine Creatinine Urine Total Protein Vancomycin Trough Digoxin Crossmatch 10/07/19 10/09/19 10/09/19 05:54 10:52 10:52 WBC 16.6 H RBC Hgb Hct MCHC RDW Plt Count 498 H Lymph % (Auto) [place] % (Auto) Lymph # [place] # Seg Neutrophils % Seg Neuts % (Manual) 93.0 H Lymphocytes % (Manual) 5.0 L Seg Neutrophils # Seg Neutrophils # Man 15.4 H Lymphocytes # (Manual) 0.8 L Monocytes # (Manual) POC ABG pH ABG pH POC ABG pCO2 POC ABG pO2 ABG pO2 ABG HCO3 ABG Base Excess ABG Hemoglobin Oxyhemoglobin Sodium Potassium Chloride 97.9 L Carbon Dioxide 20 L D BUN 23 H Creatinine 1.7 H D Glucose 109 H POC Glucose Calcium 8.1 L Phosphorus Magnesium Direct Bilirubin AST Alkaline Phosphatase C-Reactive Protein Serum Total Protein Total Protein Albumin Prealbumin Uirsi-7-Hxolttckh Krcgd-3-Irynydumn Gamma Globulins PEP Interpretation Triglycerides Urine pH Urine Creatinine Urine Total Protein Vancomycin Trough Digoxin Crossmatch 10/09/19 10/10/19 10/10/19 17:23 05:30 05:30 WBC 14.6 H RBC Hgb 11.1 L Hct 33.5 L MCHC RDW Plt Count 527 H Lymph % (Auto) [place] % (Auto) Lymph # [place] # Seg Neutrophils % Seg Neuts % (Manual) Lymphocytes % (Manual) Seg Neutrophils # Seg Neutrophils # Man Lymphocytes # (Manual) Monocytes # (Manual) POC ABG pH ABG pH POC ABG pCO2 POC ABG pO2 ABG pO2 ABG HCO3 ABG Base Excess ABG Hemoglobin Oxyhemoglobin Sodium 130 L D Potassium 5.1 H Chloride 90.0 L 91.0 L Carbon Dioxide 20 L 20 L BUN 27 H 35 H Creatinine 1.9 H 2.0 H Glucose 104 H POC Glucose Calcium Phosphorus Magnesium Direct Bilirubin AST Alkaline Phosphatase C-Reactive Protein Serum Total Protein Total Protein Albumin Prealbumin Nqqyd-3-Rktazlnzf Ybltt-4-Dbichgcbs Gamma Globulins PEP Interpretation Triglycerides Urine pH Urine Creatinine Urine Total Protein Vancomycin Trough Digoxin Crossmatch 10/10/19 10/10/19 10/11/19 08:33 08:44 05:41 WBC 13.2 H RBC Hgb 11.3 L Hct 33.8 L MCHC RDW 15.3 H Plt Count 543 H Lymph % (Auto) [place] % (Auto) Lymph # [place] # Seg Neutrophils % Seg Neuts % (Manual) Lymphocytes % (Manual) Seg Neutrophils # Seg Neutrophils # Man Lymphocytes # (Manual) Monocytes # (Manual) POC ABG pH ABG pH POC ABG pCO2 POC ABG pO2 ABG pO2 ABG HCO3 ABG Base Excess ABG Hemoglobin Oxyhemoglobin Sodium Potassium Chloride Carbon Dioxide BUN Creatinine Glucose 113 H POC Glucose 117 H Calcium Phosphorus Magnesium Direct Bilirubin AST Alkaline Phosphatase C-Reactive Protein Serum Total Protein Total Protein Albumin Prealbumin Qzmrd-3-Dtvgyifku Bxqap-3-Ybjoknrax Gamma Globulins PEP Interpretation Triglycerides Urine pH Urine Creatinine Urine Total Protein Vancomycin Trough Digoxin Crossmatch 10/11/19 10/11/19 10/11/19 05:41 06:23 06:23 WBC RBC Hgb Hct MCHC RDW Plt Count Lymph % (Auto) [place] % (Auto) Lymph # [place] # Seg Neutrophils % Seg Neuts % (Manual) Lymphocytes % (Manual) Seg Neutrophils # Seg Neutrophils # Man Lymphocytes # (Manual) Monocytes # (Manual) POC ABG pH ABG pH POC ABG pCO2 POC ABG pO2 ABG pO2 ABG HCO3 ABG Base Excess ABG Hemoglobin Oxyhemoglobin Sodium 134 L Potassium Chloride 96.3 L Carbon Dioxide BUN 37 H Creatinine Glucose 58 L POC Glucose Calcium Phosphorus 4.90 H Magnesium Direct Bilirubin AST Alkaline Phosphatase C-Reactive Protein Serum Total Protein Total Protein Albumin Prealbumin Cyckv-7-Fjsqhavil Txtpl-6-Qckczrbvv Gamma Globulins PEP Interpretation Triglycerides Urine pH Urine Creatinine 118.2 H 116.8 H Urine Total Protein 105 H 104 H Vancomycin Trough Digoxin Crossmatch 10/11/19 10/12/19 10/12/19 09:00 06:09 06:09 WBC 13.8 H RBC 3.39 L Hgb 10.2 L Hct 30.9 L MCHC RDW 15.5 H Plt Count 459 H Lymph % (Auto) [place] % (Auto) Lymph # [place] # Seg Neutrophils % Seg Neuts % (Manual) Lymphocytes % (Manual) Seg Neutrophils # Seg Neutrophils # Man Lymphocytes # (Manual) Monocytes # (Manual) POC ABG pH ABG pH POC ABG pCO2 POC ABG pO2 ABG pO2 ABG HCO3 ABG Base Excess ABG Hemoglobin Oxyhemoglobin Sodium 131 L Potassium Chloride 96.2 L Carbon Dioxide 21 L BUN 43 H Creatinine Glucose 72 L POC Glucose Calcium Phosphorus Magnesium Direct Bilirubin AST Alkaline Phosphatase C-Reactive Protein Serum Total Protein 5.2 L Total Protein Albumin 1.9 L Prealbumin Ktqff-1-Qawlvefmk 0.9 H Jrnhh-9-Kayceemxl 1.0 H Gamma Globulins 0.7 L PEP Interpretation see below H Triglycerides Urine pH Urine Creatinine Urine Total Protein Vancomycin Trough Digoxin Crossmatch 10/12/19 10/12/19 10/12/19 08:20 09:30 09:30 WBC RBC Hgb Hct MCHC RDW Plt Count Lymph % (Auto) [place] % (Auto) Lymph # [place] # Seg Neutrophils % Seg Neuts % (Manual) Lymphocytes % (Manual) Seg Neutrophils # Seg Neutrophils # Man Lymphocytes # (Manual) Monocytes # (Manual) POC ABG pH ABG pH POC ABG pCO2 POC ABG pO2 63 L ABG pO2 ABG HCO3 ABG Base Excess ABG Hemoglobin Oxyhemoglobin Sodium Potassium Chloride Carbon Dioxide BUN Creatinine Glucose POC Glucose Calcium Phosphorus Magnesium 2.50 H Direct Bilirubin 0.3 H AST Alkaline Phosphatase C-Reactive Protein Serum Total Protein Total Protein 5.1 L Albumin 2.2 L Prealbumin Xeiiq-0-Eqytuxaqo Uyaku-0-Wkiyifxug Gamma Globulins PEP Interpretation Triglycerides Urine pH Urine Creatinine Urine Total Protein Vancomycin Trough Digoxin Crossmatch 10/13/19 10/13/19 10/13/19 04:20 04:20 13:20 WBC 15.7 H RBC 3.64 L Hgb 10.9 L Hct 33.1 L MCHC RDW 15.8 H Plt Count 488 H Lymph % (Auto) [place] % (Auto) Lymph # [place] # Seg Neutrophils % Seg Neuts % (Manual) Lymphocytes % (Manual) Seg Neutrophils # Seg Neutrophils # Man Lymphocytes # (Manual) Monocytes # (Manual) POC ABG pH ABG pH POC ABG pCO2 POC ABG pO2 ABG pO2 ABG HCO3 ABG Base Excess ABG Hemoglobin Oxyhemoglobin Sodium Potassium Chloride Carbon Dioxide BUN 28 H Creatinine Glucose POC Glucose Calcium Phosphorus Magnesium Direct Bilirubin AST Alkaline Phosphatase C-Reactive Protein Serum Total Protein Total Protein Albumin Prealbumin Obquj-3-Khrzxrfeh Dpeev-7-Gnycdxopy Gamma Globulins PEP Interpretation Triglycerides Urine pH Urine Creatinine Urine Total Protein Vancomycin Trough Digoxin Crossmatch See Detail 10/13/19 10/13/19 10/14/19 18:24 20:05 04:47 WBC 24.2 H RBC Hgb 10.9 L Hct 34.2 L MCHC RDW 17.0 H Plt Count 442 H Lymph % (Auto) [place] % (Auto) Lymph # [place] # Seg Neutrophils % Seg Neuts % (Manual) Lymphocytes % (Manual) Seg Neutrophils # Seg Neutrophils # Man Lymphocytes # (Manual) Monocytes # (Manual) POC ABG pH ABG pH 7.180 L* 7.278 L POC ABG pCO2 POC ABG pO2 ABG pO2 130.7 H ABG HCO3 ABG Base Excess -6.5 L -6.5 L ABG Hemoglobin 12.2 L 12.3 L Oxyhemoglobin 92.9 L Sodium Potassium Chloride Carbon Dioxide BUN Creatinine Glucose POC Glucose Calcium Phosphorus Magnesium Direct Bilirubin AST Alkaline Phosphatase C-Reactive Protein Serum Total Protein Total Protein Albumin Prealbumin Vxngt-2-Wrrhghqkj Dwqfi-8-Lbxcxhlnh Gamma Globulins PEP Interpretation Triglycerides Urine pH Urine Creatinine Urine Total Protein Vancomycin Trough Digoxin Crossmatch 10/14/19 10/14/19 10/14/19 04:47 05:40 10:14 WBC RBC Hgb Hct MCHC RDW Plt Count Lymph % (Auto) [place] % (Auto) Lymph # [place] # Seg Neutrophils % Seg Neuts % (Manual) Lymphocytes % (Manual) Seg Neutrophils # Seg Neutrophils # Man Lymphocytes # (Manual) Monocytes # (Manual) POC ABG pH ABG pH POC ABG pCO2 POC ABG pO2 ABG pO2 76.3 L ABG HCO3 19.1 L ABG Base Excess -5.8 L ABG Hemoglobin 10.9 L Oxyhemoglobin 93.4 L Sodium Potassium 5.1 H D Chloride 109.2 H Carbon Dioxide 17 L BUN 38 H Creatinine 1.8 H D Glucose 104 H POC Glucose Calcium 7.4 L Phosphorus 5.60 H Magnesium Direct Bilirubin AST Alkaline Phosphatase C-Reactive Protein Serum Total Protein Total Protein Albumin Prealbumin Zagsm-0-Lmpsmvimn Mgyfm-0-Uptyhhitz Gamma Globulins PEP Interpretation Triglycerides Urine pH Urine Creatinine Urine Total Protein Vancomycin Trough Digoxin Crossmatch 10/14/19 10/15/19 10/15/19 23:46 04:32 04:32 WBC 15.5 H RBC 2.89 L Hgb 8.8 L Hct 27.3 L D MCHC RDW 16.6 H Plt Count Lymph % (Auto) [place] % (Auto) Lymph # [place] # Seg Neutrophils % Seg Neuts % (Manual) Lymphocytes % (Manual) Seg Neutrophils # Seg Neutrophils # Man Lymphocytes # (Manual) Monocytes # (Manual) POC ABG pH ABG pH POC ABG pCO2 POC ABG pO2 ABG pO2 ABG HCO3 ABG Base Excess ABG Hemoglobin Oxyhemoglobin Sodium 147 H Potassium Chloride 114.0 H Carbon Dioxide 19 L BUN 42 H Creatinine Glucose 112 H POC Glucose 113 H Calcium 7.3 L Phosphorus Magnesium Direct Bilirubin AST 72 H Alkaline Phosphatase C-Reactive Protein 30.60 H Serum Total Protein Total Protein 4.0 L D Albumin 1.7 L Prealbumin 0.030 L Harrf-0-Jimoihbdl Hauag-5-Kcigxayak Gamma Globulins PEP Interpretation Triglycerides Urine pH Urine Creatinine Urine Total Protein Vancomycin Trough Digoxin Crossmatch 10/15/19 10/15/19 10/15/19 05:30 12:08 17:23 WBC RBC Hgb Hct MCHC RDW Plt Count Lymph % (Auto) [place] % (Auto) Lymph # [place] # Seg Neutrophils % Seg Neuts % (Manual) Lymphocytes % (Manual) Seg Neutrophils # Seg Neutrophils # Man Lymphocytes # (Manual) Monocytes # (Manual) POC ABG pH ABG pH 7.296 L POC ABG pCO2 POC ABG pO2 ABG pO2 114.7 H ABG HCO3 ABG Base Excess -3.7 L ABG Hemoglobin 8.9 L Oxyhemoglobin Sodium Potassium Chloride Carbon Dioxide BUN Creatinine Glucose POC Glucose 106 H 106 H Calcium Phosphorus Magnesium Direct Bilirubin AST Alkaline Phosphatase C-Reactive Protein Serum Total Protein Total Protein Albumin Prealbumin Pfisd-6-Gdfdvduca Wwgdv-6-Ouekozyyi Gamma Globulins PEP Interpretation Triglycerides Urine pH Urine Creatinine Urine Total Protein Vancomycin Trough Digoxin Crossmatch 10/16/19 10/16/19 10/16/19 00:07 04:44 05:24 WBC RBC Hgb Hct MCHC RDW Plt Count Lymph % (Auto) [place] % (Auto) Lymph # [place] # Seg Neutrophils % Seg Neuts % (Manual) Lymphocytes % (Manual) Seg Neutrophils # Seg Neutrophils # Man Lymphocytes # (Manual) Monocytes # (Manual) POC ABG pH ABG pH POC ABG pCO2 POC ABG pO2 ABG pO2 ABG HCO3 ABG Base Excess ABG Hemoglobin Oxyhemoglobin Sodium 150 H Potassium Chloride 115.8 H Carbon Dioxide BUN 35 H Creatinine Glucose 129 H POC Glucose 119 H 129 H Calcium 7.3 L Phosphorus 1.80 L D Magnesium Direct Bilirubin AST Alkaline Phosphatase C-Reactive Protein Serum Total Protein Total Protein Albumin Prealbumin Hghna-8-Jfgsysaxs Mxetx-9-Xsfxcnudt Gamma Globulins PEP Interpretation Triglycerides Urine pH Urine Creatinine Urine Total Protein Vancomycin Trough Digoxin Crossmatch 10/16/19 10/16/19 10/16/19 06:53 09:20 11:58 WBC 14.6 H RBC 2.70 L Hgb 8.1 L Hct 25.2 L MCHC RDW 16.7 H Plt Count Lymph % (Auto) [place] % (Auto) Lymph # [place] # Seg Neutrophils % Seg Neuts % (Manual) 79.0 H Lymphocytes % (Manual) 4.0 L Seg Neutrophils # Seg Neutrophils # Man 11.5 H Lymphocytes # (Manual) 0.6 L Monocytes # (Manual) POC ABG pH ABG pH POC ABG pCO2 47.0 H POC ABG pO2 ABG pO2 ABG HCO3 ABG Base Excess ABG Hemoglobin Oxyhemoglobin Sodium Potassium Chloride Carbon Dioxide BUN Creatinine Glucose POC Glucose Calcium Phosphorus Magnesium Direct Bilirubin AST Alkaline Phosphatase C-Reactive Protein Serum Total Protein Total Protein Albumin Prealbumin Muanf-7-Pfwgpnenj Hqeuh-3-Ivizkrcdc Gamma Globulins PEP Interpretation Triglycerides Urine pH Urine Creatinine Urine Total Protein Vancomycin Trough Digoxin Crossmatch See Detail 10/16/19 10/16/19 10/16/19 15:23 17:50 23:58 WBC RBC Hgb Hct MCHC RDW Plt Count Lymph % (Auto) [place] % (Auto) Lymph # [place] # Seg Neutrophils % Seg Neuts % (Manual) Lymphocytes % (Manual) Seg Neutrophils # Seg Neutrophils # Man Lymphocytes # (Manual) Monocytes # (Manual) POC ABG pH ABG pH POC ABG pCO2 POC ABG pO2 ABG pO2 ABG HCO3 ABG Base Excess ABG Hemoglobin Oxyhemoglobin Sodium Potassium Chloride Carbon Dioxide BUN Creatinine Glucose POC Glucose 221 H 201 H 179 H Calcium Phosphorus Magnesium Direct Bilirubin AST Alkaline Phosphatase C-Reactive Protein Serum Total Protein Total Protein Albumin Prealbumin Sfbcz-0-Hovgbbruy Ndjjq-5-Hhonclsvj Gamma Globulins PEP Interpretation Triglycerides Urine pH Urine Creatinine Urine Total Protein Vancomycin Trough Digoxin Crossmatch 10/17/19 10/17/19 10/17/19 04:08 04:08 05:41 WBC 22.3 H RBC 3.35 L Hgb 10.0 L Hct 31.2 L D MCHC RDW 16.1 H Plt Count Lymph % (Auto) [place] % (Auto) Lymph # [place] # Seg Neutrophils % Seg Neuts % (Manual) Lymphocytes % (Manual) Seg Neutrophils # Seg Neutrophils # Man Lymphocytes # (Manual) Monocytes # (Manual) POC ABG pH 7.310 L ABG pH POC ABG pCO2 52.8 H POC ABG pO2 70 L ABG pO2 ABG HCO3 ABG Base Excess ABG Hemoglobin Oxyhemoglobin Sodium 147 H Potassium Chloride 114.9 H Carbon Dioxide BUN 36 H Creatinine Glucose 165 H POC Glucose Calcium 6.9 L Phosphorus 2.20 L D Magnesium Direct Bilirubin AST Alkaline Phosphatase C-Reactive Protein Serum Total Protein Total Protein Albumin Prealbumin Dertp-3-Hkmgyxsvk Ifoiv-3-Nisaqetqg Gamma Globulins PEP Interpretation Triglycerides Urine pH Urine Creatinine Urine Total Protein Vancomycin Trough Digoxin Crossmatch 10/17/19 10/17/19 10/17/19 05:42 11:33 18:17 WBC RBC Hgb Hct MCHC RDW Plt Count Lymph % (Auto) [place] % (Auto) Lymph # [place] # Seg Neutrophils % Seg Neuts % (Manual) Lymphocytes % (Manual) Seg Neutrophils # Seg Neutrophils # Man Lymphocytes # (Manual) Monocytes # (Manual) POC ABG pH ABG pH POC ABG pCO2 POC ABG pO2 ABG pO2 ABG HCO3 ABG Base Excess ABG Hemoglobin Oxyhemoglobin Sodium Potassium Chloride Carbon Dioxide BUN Creatinine Glucose POC Glucose 149 H 154 H 163 H Calcium Phosphorus Magnesium Direct Bilirubin AST Alkaline Phosphatase C-Reactive Protein Serum Total Protein Total Protein Albumin Prealbumin Toncz-5-Bixndwcws Aegbj-9-Vfhkgigfx Gamma Globulins PEP Interpretation Triglycerides Urine pH Urine Creatinine Urine Total Protein Vancomycin Trough Digoxin Crossmatch 10/17/19 10/18/19 10/18/19 23:34 03:29 04:50 WBC RBC Hgb Hct MCHC RDW Plt Count Lymph % (Auto) [place] % (Auto) Lymph # [place] # Seg Neutrophils % Seg Neuts % (Manual) Lymphocytes % (Manual) Seg Neutrophils # Seg Neutrophils # Man Lymphocytes # (Manual) Monocytes # (Manual) POC ABG pH ABG pH POC ABG pCO2 POC ABG pO2 ABG pO2 78.8 L ABG HCO3 ABG Base Excess ABG Hemoglobin 8.8 L Oxyhemoglobin Sodium Potassium Chloride 111.8 H Carbon Dioxide BUN 27 H Creatinine 0.6 L Glucose 140 H POC Glucose 135 H Calcium 7.1 L Phosphorus 1.80 L Magnesium Direct Bilirubin AST Alkaline Phosphatase C-Reactive Protein Serum Total Protein Total Protein Albumin Prealbumin Lompp-3-Yibpfkipm Xjdjp-0-Wjobyxvcn Gamma Globulins PEP Interpretation Triglycerides Urine pH Urine Creatinine Urine Total Protein Vancomycin Trough Digoxin Crossmatch 10/18/19 10/18/19 10/18/19 05:45 11:19 18:26 WBC RBC Hgb Hct MCHC RDW Plt Count Lymph % (Auto) [place] % (Auto) Lymph # [place] # Seg Neutrophils % Seg Neuts % (Manual) Lymphocytes % (Manual) Seg Neutrophils # Seg Neutrophils # Man Lymphocytes # (Manual) Monocytes # (Manual) POC ABG pH ABG pH POC ABG pCO2 POC ABG pO2 ABG pO2 ABG HCO3 ABG Base Excess ABG Hemoglobin Oxyhemoglobin Sodium Potassium Chloride Carbon Dioxide BUN Creatinine Glucose POC Glucose 145 H 152 H 125 H Calcium Phosphorus Magnesium Direct Bilirubin AST Alkaline Phosphatase C-Reactive Protein Serum Total Protein Total Protein Albumin Prealbumin Qjunj-6-Kdtzfwqrf Gjerh-8-Cxxdqyjvs Gamma Globulins PEP Interpretation Triglycerides Urine pH Urine Creatinine Urine Total Protein Vancomycin Trough Digoxin Crossmatch 10/18/19 10/19/19 10/19/19 23:27 04:21 04:21 WBC RBC Hgb Hct MCHC RDW Plt Count Lymph % (Auto) [place] % (Auto) Lymph # [place] # Seg Neutrophils % Seg Neuts % (Manual) Lymphocytes % (Manual) Seg Neutrophils # Seg Neutrophils # Man Lymphocytes # (Manual) Monocytes # (Manual) POC ABG pH ABG pH POC ABG pCO2 POC ABG pO2 ABG pO2 ABG HCO3 ABG Base Excess ABG Hemoglobin Oxyhemoglobin Sodium Potassium Chloride 108.4 H Carbon Dioxide BUN 22 H Creatinine 0.5 L Glucose 123 H POC Glucose 127 H Calcium 7.4 L Phosphorus 1.80 L Magnesium Direct Bilirubin AST Alkaline Phosphatase C-Reactive Protein Serum Total Protein Total Protein Albumin Prealbumin Fumki-2-Rmybaatsa Agryw-0-Hvxcbkpay Gamma Globulins PEP Interpretation Triglycerides Urine pH Urine Creatinine Urine Total Protein Vancomycin Trough Digoxin 0.7 L Crossmatch 10/19/19 10/19/19 10/19/19 05:00 05:35 11:26 WBC RBC Hgb Hct MCHC RDW Plt Count Lymph % (Auto) [place] % (Auto) Lymph # [place] # Seg Neutrophils % Seg Neuts % (Manual) Lymphocytes % (Manual) Seg Neutrophils # Seg Neutrophils # Man Lymphocytes # (Manual) Monocytes # (Manual) POC ABG pH ABG pH 7.456 H POC ABG pCO2 POC ABG pO2 ABG pO2 78.8 L ABG HCO3 ABG Base Excess ABG Hemoglobin 5.6 L Oxyhemoglobin Sodium Potassium Chloride Carbon Dioxide BUN Creatinine Glucose POC Glucose 124 H 111 H Calcium Phosphorus Magnesium Direct Bilirubin AST Alkaline Phosphatase C-Reactive Protein Serum Total Protein Total Protein Albumin Prealbumin Pskit-6-Qhwlqikze Udhwv-0-Sbdvucdpo Gamma Globulins PEP Interpretation Triglycerides Urine pH Urine Creatinine Urine Total Protein Vancomycin Trough Digoxin Crossmatch 10/19/19 10/20/19 10/20/19 23:23 04:50 05:17 WBC RBC Hgb Hct MCHC RDW Plt Count Lymph % (Auto) [place] % (Auto) Lymph # [place] # Seg Neutrophils % Seg Neuts % (Manual) Lymphocytes % (Manual) Seg Neutrophils # Seg Neutrophils # Man Lymphocytes # (Manual) Monocytes # (Manual) POC ABG pH ABG pH POC ABG pCO2 POC ABG pO2 ABG pO2 ABG HCO3 ABG Base Excess ABG Hemoglobin Oxyhemoglobin Sodium Potassium Chloride 108.1 H Carbon Dioxide BUN Creatinine 0.4 L Glucose 134 H POC Glucose 129 H 123 H Calcium 7.1 L Phosphorus Magnesium Direct Bilirubin AST Alkaline Phosphatase C-Reactive Protein Serum Total Protein Total Protein Albumin Prealbumin Dizpa-7-Vdsjdwkoe Zugyx-0-Brhfugqoi Gamma Globulins PEP Interpretation Triglycerides Urine pH Urine Creatinine Urine Total Protein Vancomycin Trough Digoxin Crossmatch 10/20/19 10/20/19 10/21/19 11:40 19:06 05:08 WBC RBC Hgb Hct MCHC RDW Plt Count Lymph % (Auto) [place] % (Auto) Lymph # [place] # Seg Neutrophils % Seg Neuts % (Manual) Lymphocytes % (Manual) Seg Neutrophils # Seg Neutrophils # Man Lymphocytes # (Manual) Monocytes # (Manual) POC ABG pH ABG pH POC ABG pCO2 POC ABG pO2 ABG pO2 ABG HCO3 ABG Base Excess ABG Hemoglobin Oxyhemoglobin Sodium Potassium Chloride Carbon Dioxide BUN Creatinine Glucose POC Glucose 139 H 117 H 131 H Calcium Phosphorus Magnesium Direct Bilirubin AST Alkaline Phosphatase C-Reactive Protein Serum Total Protein Total Protein Albumin Prealbumin Esyub-0-Zinhmbtof Apejf-8-Xtclngmpm Gamma Globulins PEP Interpretation Triglycerides Urine pH Urine Creatinine Urine Total Protein Vancomycin Trough Digoxin Crossmatch 10/21/19 10/21/19 10/21/19 05:30 12:04 17:31 WBC RBC Hgb Hct MCHC RDW Plt Count Lymph % (Auto) [place] % (Auto) Lymph # [place] # Seg Neutrophils % Seg Neuts % (Manual) Lymphocytes % (Manual) Seg Neutrophils # Seg Neutrophils # Man Lymphocytes # (Manual) Monocytes # (Manual) POC ABG pH ABG pH POC ABG pCO2 POC ABG pO2 ABG pO2 ABG HCO3 ABG Base Excess ABG Hemoglobin Oxyhemoglobin Sodium Potassium Chloride 107.8 H Carbon Dioxide BUN Creatinine 0.5 L Glucose 119 H POC Glucose 119 H 110 H Calcium 7.6 L Phosphorus Magnesium Direct Bilirubin AST Alkaline Phosphatase C-Reactive Protein Serum Total Protein Total Protein Albumin Prealbumin Ecccg-0-Cfveolpjd Fnfuu-8-Pstzbzqmb Gamma Globulins PEP Interpretation Triglycerides Urine pH Urine Creatinine Urine Total Protein Vancomycin Trough Digoxin Crossmatch 10/22/19 10/22/19 10/22/19 05:14 05:37 12:07 WBC RBC Hgb Hct MCHC RDW Plt Count Lymph % (Auto) [place] % (Auto) Lymph # [place] # Seg Neutrophils % Seg Neuts % (Manual) Lymphocytes % (Manual) Seg Neutrophils # Seg Neutrophils # Man Lymphocytes # (Manual) Monocytes # (Manual) POC ABG pH ABG pH POC ABG pCO2 POC ABG pO2 ABG pO2 ABG HCO3 ABG Base Excess ABG Hemoglobin Oxyhemoglobin Sodium Potassium Chloride Carbon Dioxide BUN Creatinine 0.5 L Glucose 116 H POC Glucose 110 H 126 H Calcium 7.7 L Phosphorus Magnesium Direct Bilirubin AST Alkaline Phosphatase C-Reactive Protein Serum Total Protein Total Protein Albumin Prealbumin Zieiv-7-Uimtlawaq Kfxlp-5-Trabdqgjs Gamma Globulins PEP Interpretation Triglycerides Urine pH Urine Creatinine Urine Total Protein Vancomycin Trough Digoxin Crossmatch 10/22/19 10/22/19 10/23/19 18:36 23:19 04:39 WBC RBC Hgb Hct MCHC RDW Plt Count Lymph % (Auto) [place] % (Auto) Lymph # [place] # Seg Neutrophils % Seg Neuts % (Manual) Lymphocytes % (Manual) Seg Neutrophils # Seg Neutrophils # Man Lymphocytes # (Manual) Monocytes # (Manual) POC ABG pH ABG pH POC ABG pCO2 POC ABG pO2 ABG pO2 ABG HCO3 ABG Base Excess ABG Hemoglobin Oxyhemoglobin Sodium Potassium Chloride Carbon Dioxide BUN Creatinine Glucose POC Glucose 120 H 127 H 112 H Calcium Phosphorus Magnesium Direct Bilirubin AST Alkaline Phosphatase C-Reactive Protein Serum Total Protein Total Protein Albumin Prealbumin Mqkfp-2-Qyjrgqlpw Oespo-7-Srpgjnlup Gamma Globulins PEP Interpretation Triglycerides Urine pH Urine Creatinine Urine Total Protein Vancomycin Trough Digoxin Crossmatch 10/23/19 10/23/19 10/23/19 04:47 05:15 10:44 WBC 18.3 H RBC 2.33 L Hgb 7.0 L Hct 21.5 L MCHC RDW 16.2 H Plt Count Lymph % (Auto) 4.9 L [place] % (Auto) 8.1 H Lymph # 0.9 L [place] # 1.5 H Seg Neutrophils % 86.7 H Seg Neuts % (Manual) Lymphocytes % (Manual) Seg Neutrophils # 15.9 H Seg Neutrophils # Man Lymphocytes # (Manual) Monocytes # (Manual) POC ABG pH ABG pH POC ABG pCO2 POC ABG pO2 ABG pO2 68.9 L ABG HCO3 28.7 H ABG Base Excess 3.4 H ABG Hemoglobin 6.6 L Oxyhemoglobin 94.1 L Sodium Potassium Chloride Carbon Dioxide BUN Creatinine 0.5 L Glucose 165 H POC Glucose Calcium 7.4 L Phosphorus Magnesium Direct Bilirubin AST Alkaline Phosphatase C-Reactive Protein Serum Total Protein Total Protein Albumin Prealbumin Kowzg-9-Dzfqhenmy Numpl-8-Dlyhvfrde Gamma Globulins PEP Interpretation Triglycerides Urine pH Urine Creatinine Urine Total Protein Vancomycin Trough Digoxin Crossmatch 10/23/19 10/23/19 10/23/19 10:44 11:46 11:50 WBC RBC Hgb Hct MCHC RDW Plt Count Lymph % (Auto) [place] % (Auto) Lymph # [place] # Seg Neutrophils % Seg Neuts % (Manual) Lymphocytes % (Manual) Seg Neutrophils # Seg Neutrophils # Man Lymphocytes # (Manual) Monocytes # (Manual) POC ABG pH ABG pH POC ABG pCO2 POC ABG pO2 ABG pO2 ABG HCO3 ABG Base Excess ABG Hemoglobin Oxyhemoglobin Sodium Potassium Chloride Carbon Dioxide BUN Creatinine Glucose POC Glucose 138 H Calcium Phosphorus Magnesium Direct Bilirubin 0.7 H AST Alkaline Phosphatase C-Reactive Protein Serum Total Protein Total Protein 4.5 L Albumin 1.2 L Prealbumin Gpfjy-8-Hryqpwxap Kxdan-1-Vrprtdmfz Gamma Globulins PEP Interpretation Triglycerides Urine pH Urine Creatinine Urine Total Protein Vancomycin Trough Digoxin Crossmatch See Detail 10/23/19 10/24/19 10/24/19 17:53 00:07 05:05 WBC RBC Hgb Hct MCHC RDW Plt Count Lymph % (Auto) [place] % (Auto) Lymph # [place] # Seg Neutrophils % Seg Neuts % (Manual) Lymphocytes % (Manual) Seg Neutrophils # Seg Neutrophils # Man Lymphocytes # (Manual) Monocytes # (Manual) POC ABG pH ABG pH POC ABG pCO2 POC ABG pO2 ABG pO2 ABG HCO3 ABG Base Excess ABG Hemoglobin Oxyhemoglobin Sodium Potassium 3.5 L Chloride Carbon Dioxide BUN Creatinine 0.5 L Glucose 116 H POC Glucose 137 H 110 H Calcium 8.0 L Phosphorus Magnesium Direct Bilirubin AST Alkaline Phosphatase C-Reactive Protein Serum Total Protein Total Protein Albumin Prealbumin Qlgzy-7-Gejboiadm Qxwqk-5-Qudfbajiw Gamma Globulins PEP Interpretation Triglycerides Urine pH Urine Creatinine Urine Total Protein Vancomycin Trough Digoxin Crossmatch 10/24/19 10/24/19 10/24/19 05:05 11:56 13:00 WBC 13.0 H RBC 2.73 L Hgb 8.0 L Hct 24.2 L MCHC RDW 17.9 H Plt Count Lymph % (Auto) 7.0 L [place] % (Auto) 9.5 H Lymph # 0.9 L [place] # 1.2 H Seg Neutrophils % 82.7 H Seg Neuts % (Manual) Lymphocytes % (Manual) Seg Neutrophils # 10.7 H Seg Neutrophils # Man Lymphocytes # (Manual) Monocytes # (Manual) POC ABG pH ABG pH POC ABG pCO2 POC ABG pO2 ABG pO2 ABG HCO3 ABG Base Excess ABG Hemoglobin Oxyhemoglobin Sodium Potassium Chloride Carbon Dioxide BUN Creatinine Glucose POC Glucose 159 H Calcium Phosphorus Magnesium Direct Bilirubin AST Alkaline Phosphatase C-Reactive Protein Serum Total Protein Total Protein Albumin Prealbumin Uscax-2-Ocvaxtdgd Vfzph-2-Ixxcjayik Gamma Globulins PEP Interpretation Triglycerides 216 H Urine pH Urine Creatinine Urine Total Protein Vancomycin Trough Digoxin Crossmatch 10/24/19 10/24/19 10/25/19 17:42 23:45 04:19 WBC RBC Hgb Hct MCHC RDW Plt Count Lymph % (Auto) [place] % (Auto) Lymph # [place] # Seg Neutrophils % Seg Neuts % (Manual) Lymphocytes % (Manual) Seg Neutrophils # Seg Neutrophils # Man Lymphocytes # (Manual) Monocytes # (Manual) POC ABG pH ABG pH POC ABG pCO2 POC ABG pO2 ABG pO2 ABG HCO3 ABG Base Excess ABG Hemoglobin Oxyhemoglobin Sodium 147 H Potassium Chloride Carbon Dioxide 33 H BUN Creatinine 0.5 L Glucose 111 H POC Glucose 120 H 116 H Calcium Phosphorus Magnesium Direct Bilirubin AST Alkaline Phosphatase C-Reactive Protein Serum Total Protein Total Protein 5.7 L D Albumin 2.5 L Prealbumin Xwuqn-6-Xujjabflg Faztd-2-Jhnkwdawu Gamma Globulins PEP Interpretation Triglycerides 230 H Urine pH Urine Creatinine Urine Total Protein Vancomycin Trough Digoxin Crossmatch 10/25/19 10/25/19 10/25/19 04:19 05:31 12:20 WBC RBC 2.69 L Hgb 8.1 L Hct 23.9 L MCHC RDW 17.3 H Plt Count Lymph % (Auto) [place] % (Auto) Lymph # [place] # Seg Neutrophils % Seg Neuts % (Manual) Lymphocytes % (Manual) Seg Neutrophils # Seg Neutrophils # Man Lymphocytes # (Manual) Monocytes # (Manual) POC ABG pH ABG pH POC ABG pCO2 POC ABG pO2 ABG pO2 ABG HCO3 ABG Base Excess ABG Hemoglobin Oxyhemoglobin Sodium Potassium Chloride Carbon Dioxide BUN Creatinine Glucose POC Glucose 126 H 114 H Calcium Phosphorus Magnesium Direct Bilirubin AST Alkaline Phosphatase C-Reactive Protein Serum Total Protein Total Protein Albumin Prealbumin Ndmqi-4-Ftntgiuvv Yzeur-1-Olltzzzin Gamma Globulins PEP Interpretation Triglycerides Urine pH Urine Creatinine Urine Total Protein Vancomycin Trough Digoxin Crossmatch 10/25/19 10/25/19 10/26/19 18:30 23:09 06:15 WBC RBC Hgb Hct MCHC RDW Plt Count Lymph % (Auto) [place] % (Auto) Lymph # [place] # Seg Neutrophils % Seg Neuts % (Manual) Lymphocytes % (Manual) Seg Neutrophils # Seg Neutrophils # Man Lymphocytes # (Manual) Monocytes # (Manual) POC ABG pH ABG pH POC ABG pCO2 POC ABG pO2 ABG pO2 ABG HCO3 ABG Base Excess ABG Hemoglobin Oxyhemoglobin Sodium Potassium 3.5 L Chloride Carbon Dioxide BUN Creatinine 0.5 L Glucose 112 H POC Glucose 121 H 107 H Calcium 8.3 L Phosphorus Magnesium Direct Bilirubin AST Alkaline Phosphatase 148 H C-Reactive Protein Serum Total Protein Total Protein 5.9 L Albumin 2.4 L Prealbumin Mphpq-9-Bmzxeavar Gyguu-1-Yxbjtyswo Gamma Globulins PEP Interpretation Triglycerides Urine pH Urine Creatinine Urine Total Protein Vancomycin Trough Digoxin Crossmatch 10/26/19 10/26/19 10/26/19 06:15 12:21 17:35 WBC RBC Hgb Hct MCHC RDW Plt Count Lymph % (Auto) [place] % (Auto) Lymph # [place] # Seg Neutrophils % Seg Neuts % (Manual) Lymphocytes % (Manual) Seg Neutrophils # Seg Neutrophils # Man Lymphocytes # (Manual) Monocytes # (Manual) POC ABG pH ABG pH POC ABG pCO2 POC ABG pO2 ABG pO2 ABG HCO3 ABG Base Excess ABG Hemoglobin Oxyhemoglobin Sodium Potassium Chloride Carbon Dioxide BUN Creatinine Glucose POC Glucose 134 H 141 H Calcium Phosphorus Magnesium Direct Bilirubin AST Alkaline Phosphatase C-Reactive Protein Serum Total Protein Total Protein Albumin Prealbumin Ombft-8-Jjazkdifv Eskqc-7-Rxsskkefl Gamma Globulins PEP Interpretation Triglycerides 185 H Urine pH Urine Creatinine Urine Total Protein Vancomycin Trough Digoxin Crossmatch 10/26/19 10/27/19 10/27/19 Unknown 04:30 11:33 WBC RBC Hgb Hct MCHC RDW Plt Count Lymph % (Auto) [place] % (Auto) Lymph # [place] # Seg Neutrophils % Seg Neuts % (Manual) Lymphocytes % (Manual) Seg Neutrophils # Seg Neutrophils # Man Lymphocytes # (Manual) Monocytes # (Manual) POC ABG pH ABG pH POC ABG pCO2 POC ABG pO2 ABG pO2 ABG HCO3 ABG Base Excess ABG Hemoglobin Oxyhemoglobin Sodium Potassium 3.2 L Chloride Carbon Dioxide BUN 23 H Creatinine 0.6 L Glucose 130 H POC Glucose 131 H Calcium 7.9 L Phosphorus Magnesium Direct Bilirubin AST Alkaline Phosphatase C-Reactive Protein Serum Total Protein Total Protein Albumin Prealbumin Oclct-9-Zkxnfalqm Spzfs-5-Ltibdxugz Gamma Globulins PEP Interpretation Triglycerides Urine pH 9.0 H Urine Creatinine Urine Total Protein Vancomycin Trough Digoxin Crossmatch 10/27/19 10/28/19 10/28/19 17:45 05:25 05:49 WBC RBC 2.85 L Hgb 8.3 L Hct 26.8 L MCHC 31 L RDW 17.4 H Plt Count Lymph % (Auto) 8.9 L [place] % (Auto) 14.3 H Lymph # 0.8 L [place] # 1.3 H Seg Neutrophils % 76.5 H Seg Neuts % (Manual) Lymphocytes % (Manual) Seg Neutrophils # Seg Neutrophils # Man Lymphocytes # (Manual) Monocytes # (Manual) POC ABG pH ABG pH POC ABG pCO2 POC ABG pO2 ABG pO2 ABG HCO3 ABG Base Excess ABG Hemoglobin Oxyhemoglobin Sodium Potassium Chloride Carbon Dioxide BUN Creatinine Glucose POC Glucose 121 H 120 H Calcium Phosphorus Magnesium Direct Bilirubin AST Alkaline Phosphatase C-Reactive Protein Serum Total Protein Total Protein Albumin Prealbumin Qvwfy-8-Pcsreuwmq Frpqx-6-Kradyldyx Gamma Globulins PEP Interpretation Triglycerides Urine pH Urine Creatinine Urine Total Protein Vancomycin Trough Digoxin Crossmatch 10/28/19 10/28/19 10/28/19 07:19 12:07 18:21 WBC RBC Hgb Hct MCHC RDW Plt Count Lymph % (Auto) [place] % (Auto) Lymph # [place] # Seg Neutrophils % Seg Neuts % (Manual) Lymphocytes % (Manual) Seg Neutrophils # Seg Neutrophils # Man Lymphocytes # (Manual) Monocytes # (Manual) POC ABG pH ABG pH POC ABG pCO2 POC ABG pO2 ABG pO2 ABG HCO3 ABG Base Excess ABG Hemoglobin Oxyhemoglobin Sodium Potassium Chloride Carbon Dioxide BUN 23 H Creatinine 0.5 L Glucose 129 H POC Glucose 127 H 130 H Calcium 8.0 L Phosphorus Magnesium Direct Bilirubin AST Alkaline Phosphatase C-Reactive Protein Serum Total Protein Total Protein Albumin Prealbumin Saeor-9-Yfzaaimic Nssbl-0-Hnqlmqnin Gamma Globulins PEP Interpretation Triglycerides Urine pH Urine Creatinine Urine Total Protein Vancomycin Trough Digoxin Crossmatch 10/28/19 10/29/19 10/29/19 23:30 05:30 05:30 WBC 11.2 H RBC 3.36 L Hgb 9.7 L Hct 29.4 L MCHC RDW 16.7 H Plt Count Lymph % (Auto) [place] % (Auto) 16.0 H Lymph # [place] # 1.8 H Seg Neutrophils % 70.2 H Seg Neuts % (Manual) Lymphocytes % (Manual) Seg Neutrophils # 7.9 H Seg Neutrophils # Man Lymphocytes # (Manual) Monocytes # (Manual) POC ABG pH ABG pH POC ABG pCO2 POC ABG pO2 ABG pO2 ABG HCO3 ABG Base Excess ABG Hemoglobin Oxyhemoglobin Sodium Potassium Chloride Carbon Dioxide BUN 23 H Creatinine 0.5 L Glucose POC Glucose 130 H Calcium 8.3 L Phosphorus Magnesium Direct Bilirubin AST Alkaline Phosphatase C-Reactive Protein Serum Total Protein Total Protein Albumin Prealbumin Ijsnd-3-Evxpwwkrm Kqamz-2-Jszxtjtlv Gamma Globulins PEP Interpretation Triglycerides Urine pH Urine Creatinine Urine Total Protein Vancomycin Trough Digoxin Crossmatch 10/29/19 10/29/19 10/29/19 05:52 13:10 18:02 WBC RBC Hgb Hct MCHC RDW Plt Count Lymph % (Auto) [place] % (Auto) Lymph # [place] # Seg Neutrophils % Seg Neuts % (Manual) Lymphocytes % (Manual) Seg Neutrophils # Seg Neutrophils # Man Lymphocytes # (Manual) Monocytes # (Manual) POC ABG pH ABG pH POC ABG pCO2 POC ABG pO2 ABG pO2 ABG HCO3 ABG Base Excess ABG Hemoglobin Oxyhemoglobin Sodium Potassium Chloride Carbon Dioxide BUN Creatinine Glucose POC Glucose 111 H 140 H 140 H Calcium Phosphorus Magnesium Direct Bilirubin AST Alkaline Phosphatase C-Reactive Protein Serum Total Protein Total Protein Albumin Prealbumin Awazr-4-Hzhdtyfyu Luqzk-0-Ipkwbtbeu Gamma Globulins PEP Interpretation Triglycerides Urine pH Urine Creatinine Urine Total Protein Vancomycin Trough Digoxin Crossmatch 10/29/19 10/30/19 10/30/19 23:58 01:05 05:15 WBC RBC Hgb Hct MCHC RDW Plt Count Lymph % (Auto) [place] % (Auto) Lymph # [place] # Seg Neutrophils % Seg Neuts % (Manual) Lymphocytes % (Manual) Seg Neutrophils # Seg Neutrophils # Man Lymphocytes # (Manual) Monocytes # (Manual) POC ABG pH ABG pH POC ABG pCO2 62.0 H POC ABG pO2 168 H ABG pO2 ABG HCO3 ABG Base Excess ABG Hemoglobin Oxyhemoglobin Sodium 147 H Potassium Chloride 107.8 H Carbon Dioxide BUN 26 H Creatinine 0.5 L Glucose 139 H POC Glucose 161 H Calcium Phosphorus Magnesium 2.40 H Direct Bilirubin AST Alkaline Phosphatase C-Reactive Protein Serum Total Protein Total Protein Albumin Prealbumin Zszpd-7-Tclnslmzs Izyum-4-Tkytvzdwg Gamma Globulins PEP Interpretation Triglycerides Urine pH Urine Creatinine Urine Total Protein Vancomycin Trough Digoxin Crossmatch 10/30/19 10/30/19 10/30/19 05:15 06:32 09:44 WBC 13.8 H RBC 3.59 L Hgb 10.1 L Hct 32.4 L MCHC 31 L RDW 17.4 H Plt Count Lymph % (Auto) 11.2 L [place] % (Auto) 13.6 H Lymph # [place] # 1.9 H Seg Neutrophils % 75.1 H Seg Neuts % (Manual) Lymphocytes % (Manual) Seg Neutrophils # 10.4 H Seg Neutrophils # Man Lymphocytes # (Manual) Monocytes # (Manual) POC ABG pH ABG pH POC ABG pCO2 51.7 H POC ABG pO2 111 H ABG pO2 ABG HCO3 ABG Base Excess ABG Hemoglobin Oxyhemoglobin Sodium Potassium Chloride Carbon Dioxide BUN Creatinine Glucose POC Glucose 141 H Calcium Phosphorus Magnesium Direct Bilirubin AST Alkaline Phosphatase C-Reactive Protein Serum Total Protein Total Protein Albumin Prealbumin Dnasw-6-Xjkgwatue Wrqeh-5-Bbgcbkpex Gamma Globulins PEP Interpretation Triglycerides Urine pH Urine Creatinine Urine Total Protein Vancomycin Trough Digoxin Crossmatch 10/30/19 10/31/19 10/31/19 18:10 04:18 04:18 WBC 11.7 H RBC 3.11 L Hgb 9.0 L Hct 27.9 L MCHC RDW 17.1 H Plt Count Lymph % (Auto) [place] % (Auto) Lymph # [place] # Seg Neutrophils % Seg Neuts % (Manual) Lymphocytes % (Manual) Seg Neutrophils # Seg Neutrophils # Man Lymphocytes # (Manual) Monocytes # (Manual) POC ABG pH ABG pH POC ABG pCO2 POC ABG pO2 ABG pO2 ABG HCO3 ABG Base Excess ABG Hemoglobin Oxyhemoglobin Sodium 148 H Potassium Chloride 108.7 H Carbon Dioxide BUN 37 H Creatinine 0.7 L Glucose 102 H POC Glucose 131 H Calcium Phosphorus Magnesium Direct Bilirubin AST Alkaline Phosphatase C-Reactive Protein Serum Total Protein Total Protein Albumin Prealbumin Bssjg-8-Vgswbnxlu Mhpou-1-Fqmmlbttn Gamma Globulins PEP Interpretation Triglycerides Urine pH Urine Creatinine Urine Total Protein Vancomycin Trough Digoxin Crossmatch 10/31/19 10/31/19 10/31/19 11:32 12:55 18:10 WBC RBC Hgb Hct MCHC RDW Plt Count Lymph % (Auto) [place] % (Auto) Lymph # [place] # Seg Neutrophils % Seg Neuts % (Manual) Lymphocytes % (Manual) Seg Neutrophils # Seg Neutrophils # Man Lymphocytes # (Manual) Monocytes # (Manual) POC ABG pH ABG pH POC ABG pCO2 57.9 H POC ABG pO2 135 H ABG pO2 ABG HCO3 ABG Base Excess ABG Hemoglobin Oxyhemoglobin Sodium Potassium Chloride Carbon Dioxide BUN Creatinine Glucose POC Glucose 120 H Calcium Phosphorus Magnesium Direct Bilirubin AST Alkaline Phosphatase C-Reactive Protein Serum Total Protein Total Protein Albumin Prealbumin Znbaf-5-Yzitgonbx Pzzcy-9-Dfdynhgxu Gamma Globulins PEP Interpretation Triglycerides Urine pH Urine Creatinine Urine Total Protein Vancomycin Trough 41.7 H Digoxin Crossmatch 10/31/19 11/01/19 11/01/19 23:08 05:30 05:30 WBC 14.6 H RBC 3.13 L Hgb 8.9 L Hct 27.7 L MCHC RDW 17.0 H Plt Count Lymph % (Auto) [place] % (Auto) Lymph # [place] # Seg Neutrophils % Seg Neuts % (Manual) Lymphocytes % (Manual) Seg Neutrophils # Seg Neutrophils # Man Lymphocytes # (Manual) Monocytes # (Manual) POC ABG pH ABG pH POC ABG pCO2 POC ABG pO2 ABG pO2 ABG HCO3 ABG Base Excess ABG Hemoglobin Oxyhemoglobin Sodium 149 H Potassium Chloride 109.0 H Carbon Dioxide BUN 26 H Creatinine 0.7 L Glucose 129 H POC Glucose 109 H Calcium Phosphorus Magnesium Direct Bilirubin AST Alkaline Phosphatase C-Reactive Protein Serum Total Protein Total Protein Albumin Prealbumin Jbdve-6-Gztxvynbo Iqtdc-4-Rrufbypgc Gamma Globulins PEP Interpretation Triglycerides Urine pH Urine Creatinine Urine Total Protein Vancomycin Trough Digoxin Crossmatch 11/01/19 11/01/19 11/01/19 06:09 06:10 11:52 WBC RBC Hgb Hct MCHC RDW Plt Count Lymph % (Auto) [place] % (Auto) Lymph # [place] # Seg Neutrophils % Seg Neuts % (Manual) Lymphocytes % (Manual) Seg Neutrophils # Seg Neutrophils # Man Lymphocytes # (Manual) Monocytes # (Manual) POC ABG pH ABG pH POC ABG pCO2 51.3 H POC ABG pO2 71 L ABG pO2 ABG HCO3 ABG Base Excess ABG Hemoglobin Oxyhemoglobin Sodium Potassium Chloride Carbon Dioxide BUN Creatinine Glucose POC Glucose 113 H 106 H Calcium Phosphorus Magnesium Direct Bilirubin AST Alkaline Phosphatase C-Reactive Protein Serum Total Protein Total Protein Albumin Prealbumin Gwnzq-4-Yorrzdfnh Kfdsp-2-Pdvqxvxyi Gamma Globulins PEP Interpretation Triglycerides Urine pH Urine Creatinine Urine Total Protein Vancomycin Trough Digoxin Crossmatch 11/01/19 11/02/19 11/02/19 18:18 03:40 03:40 WBC RBC 2.36 L Hgb 7.2 L Hct 20.8 L D MCHC 35 H RDW 16.8 H Plt Count Lymph % (Auto) [place] % (Auto) Lymph # [place] # Seg Neutrophils % Seg Neuts % (Manual) Lymphocytes % (Manual) Seg Neutrophils # Seg Neutrophils # Man Lymphocytes # (Manual) Monocytes # (Manual) POC ABG pH ABG pH POC ABG pCO2 POC ABG pO2 ABG pO2 ABG HCO3 ABG Base Excess ABG Hemoglobin Oxyhemoglobin Sodium 157 H D Potassium 3.0 L D Chloride 117.2 H Carbon Dioxide BUN 23 H Creatinine 0.6 L Glucose 101 H POC Glucose 120 H Calcium 6.4 L D Phosphorus Magnesium Direct Bilirubin AST Alkaline Phosphatase C-Reactive Protein Serum Total Protein Total Protein Albumin Prealbumin Eshoj-9-Bpmencumx Jipyl-5-Ekmptvcil Gamma Globulins PEP Interpretation Triglycerides Urine pH Urine Creatinine Urine Total Protein Vancomycin Trough Digoxin Crossmatch 11/02/19 11/02/19 11/02/19 04:48 05:30 12:43 WBC RBC Hgb Hct MCHC RDW Plt Count Lymph % (Auto) [place] % (Auto) Lymph # [place] # Seg Neutrophils % Seg Neuts % (Manual) Lymphocytes % (Manual) Seg Neutrophils # Seg Neutrophils # Man Lymphocytes # (Manual) Monocytes # (Manual) POC ABG pH ABG pH POC ABG pCO2 50.1 H POC ABG pO2 74 L ABG pO2 ABG HCO3 ABG Base Excess ABG Hemoglobin Oxyhemoglobin Sodium 149 H D Potassium Chloride 110.0 H Carbon Dioxide BUN 23 H Creatinine 0.6 L Glucose POC Glucose 109 H Calcium 8.1 L D Phosphorus Magnesium 2.40 H Direct Bilirubin AST Alkaline Phosphatase C-Reactive Protein Serum Total Protein Total Protein Albumin Prealbumin Ysyiy-0-Gxmuocmge Lvlmt-9-Ppfpwcfdw Gamma Globulins PEP Interpretation Triglycerides Urine pH Urine Creatinine Urine Total Protein Vancomycin Trough Digoxin Crossmatch 11/03/19 11/03/19 11/03/19 03:42 03:42 04:13 WBC RBC 2.93 L Hgb 8.5 L Hct 25.8 L MCHC RDW 16.9 H Plt Count Lymph % (Auto) [place] % (Auto) Lymph # [place] # Seg Neutrophils % Seg Neuts % (Manual) Lymphocytes % (Manual) Seg Neutrophils # Seg Neutrophils # Man Lymphocytes # (Manual) Monocytes # (Manual) POC ABG pH 7.540 H ABG pH POC ABG pCO2 POC ABG pO2 51 L ABG pO2 ABG HCO3 ABG Base Excess ABG Hemoglobin Oxyhemoglobin Sodium 147 H Potassium 3.5 L D Chloride 108.6 H Carbon Dioxide BUN Creatinine 0.6 L Glucose 109 H POC Glucose Calcium 8.3 L Phosphorus Magnesium Direct Bilirubin AST Alkaline Phosphatase C-Reactive Protein Serum Total Protein Total Protein Albumin Prealbumin Vyncg-6-Zmimbttgu Xrdfl-9-Bhvlodrsv Gamma Globulins PEP Interpretation Triglycerides Urine pH Urine Creatinine Urine Total Protein Vancomycin Trough Digoxin Crossmatch 11/03/19 11/03/19 11/03/19 04:28 12:04 23:02 WBC RBC Hgb Hct MCHC RDW Plt Count Lymph % (Auto) [place] % (Auto) Lymph # [place] # Seg Neutrophils % Seg Neuts % (Manual) Lymphocytes % (Manual) Seg Neutrophils # Seg Neutrophils # Man Lymphocytes # (Manual) Monocytes # (Manual) POC ABG pH ABG pH POC ABG pCO2 45.4 H POC ABG pO2 ABG pO2 ABG HCO3 ABG Base Excess ABG Hemoglobin Oxyhemoglobin Sodium Potassium Chloride Carbon Dioxide BUN Creatinine Glucose POC Glucose 109 H 111 H Calcium Phosphorus Magnesium Direct Bilirubin AST Alkaline Phosphatase C-Reactive Protein Serum Total Protein Total Protein Albumin Prealbumin Wkotn-1-Imzwwwmhs Tblbx-7-Xxncdzylp Gamma Globulins PEP Interpretation Triglycerides Urine pH Urine Creatinine Urine Total Protein Vancomycin Trough Digoxin Crossmatch 11/04/19 11/04/19 11/04/19 05:00 05:00 05:19 WBC RBC 2.96 L Hgb 8.6 L Hct 25.5 L MCHC RDW 16.7 H Plt Count Lymph % (Auto) [place] % (Auto) Lymph # [place] # Seg Neutrophils % Seg Neuts % (Manual) Lymphocytes % (Manual) Seg Neutrophils # Seg Neutrophils # Man Lymphocytes # (Manual) Monocytes # (Manual) POC ABG pH ABG pH POC ABG pCO2 POC ABG pO2 ABG pO2 ABG HCO3 ABG Base Excess ABG Hemoglobin Oxyhemoglobin Sodium Potassium 3.5 L Chloride Carbon Dioxide BUN Creatinine 0.5 L Glucose 111 H POC Glucose 106 H Calcium 8.1 L Phosphorus Magnesium Direct Bilirubin AST Alkaline Phosphatase C-Reactive Protein Serum Total Protein Total Protein Albumin Prealbumin Einma-2-Iqolsyhkm Gepxw-6-Jqkjudtbj Gamma Globulins PEP Interpretation Triglycerides Urine pH Urine Creatinine Urine Total Protein Vancomycin Trough Digoxin Crossmatch 11/04/19 11/05/19 11/05/19 12:40 00:28 04:19 WBC 12.4 H RBC 2.98 L Hgb 8.5 L Hct 25.5 L MCHC RDW 16.6 H Plt Count Lymph % (Auto) [place] % (Auto) Lymph # [place] # Seg Neutrophils % Seg Neuts % (Manual) Lymphocytes % (Manual) Seg Neutrophils # Seg Neutrophils # Man Lymphocytes # (Manual) Monocytes # (Manual) POC ABG pH ABG pH POC ABG pCO2 POC ABG pO2 ABG pO2 ABG HCO3 ABG Base Excess ABG Hemoglobin Oxyhemoglobin Sodium Potassium Chloride Carbon Dioxide BUN Creatinine Glucose POC Glucose 109 H 132 H Calcium Phosphorus Magnesium Direct Bilirubin AST Alkaline Phosphatase C-Reactive Protein Serum Total Protein Total Protein Albumin Prealbumin Bqfyb-9-Ulxvseknz Zvogg-1-Vudmfzoyo Gamma Globulins PEP Interpretation Triglycerides Urine pH Urine Creatinine Urine Total Protein Vancomycin Trough Digoxin Crossmatch 11/05/19 11/05/19 11/05/19 04:19 05:40 13:14 WBC RBC Hgb Hct MCHC RDW Plt Count Lymph % (Auto) [place] % (Auto) Lymph # [place] # Seg Neutrophils % Seg Neuts % (Manual) Lymphocytes % (Manual) Seg Neutrophils # Seg Neutrophils # Man Lymphocytes # (Manual) Monocytes # (Manual) POC ABG pH ABG pH POC ABG pCO2 POC ABG pO2 ABG pO2 ABG HCO3 ABG Base Excess ABG Hemoglobin Oxyhemoglobin Sodium Potassium 3.4 L Chloride Carbon Dioxide BUN Creatinine 0.4 L Glucose 106 H POC Glucose 136 H 145 H Calcium 8.2 L Phosphorus Magnesium Direct Bilirubin AST Alkaline Phosphatase C-Reactive Protein Serum Total Protein Total Protein Albumin Prealbumin Fzsog-1-Xjkxfwuko Sgkee-5-Jfjsthtpr Gamma Globulins PEP Interpretation Triglycerides Urine pH Urine Creatinine Urine Total Protein Vancomycin Trough Digoxin Crossmatch 11/05/19 11/05/19 11/06/19 18:29 23:42 05:00 WBC 12.2 H RBC 2.89 L Hgb 8.2 L Hct 24.9 L MCHC RDW 16.4 H Plt Count Lymph % (Auto) [place] % (Auto) Lymph # [place] # Seg Neutrophils % Seg Neuts % (Manual) Lymphocytes % (Manual) Seg Neutrophils # Seg Neutrophils # Man Lymphocytes # (Manual) Monocytes # (Manual) POC ABG pH ABG pH POC ABG pCO2 POC ABG pO2 ABG pO2 ABG HCO3 ABG Base Excess ABG Hemoglobin Oxyhemoglobin Sodium Potassium Chloride Carbon Dioxide BUN Creatinine Glucose POC Glucose 138 H 117 H Calcium Phosphorus Magnesium Direct Bilirubin AST Alkaline Phosphatase C-Reactive Protein Serum Total Protein Total Protein Albumin Prealbumin Vhsgp-9-Qapqqrhiy Cttre-4-Fljutunzz Gamma Globulins PEP Interpretation Triglycerides Urine pH Urine Creatinine Urine Total Protein Vancomycin Trough Digoxin Crossmatch 11/06/19 11/06/19 11/06/19 05:00 05:22 17:39 WBC RBC Hgb Hct MCHC RDW Plt Count Lymph % (Auto) [place] % (Auto) Lymph # [place] # Seg Neutrophils % Seg Neuts % (Manual) Lymphocytes % (Manual) Seg Neutrophils # Seg Neutrophils # Man Lymphocytes # (Manual) Monocytes # (Manual) POC ABG pH ABG pH POC ABG pCO2 POC ABG pO2 ABG pO2 ABG HCO3 ABG Base Excess ABG Hemoglobin Oxyhemoglobin Sodium Potassium Chloride Carbon Dioxide BUN Creatinine 0.4 L Glucose 114 H POC Glucose 121 H 110 H Calcium 8.2 L Phosphorus Magnesium Direct Bilirubin AST Alkaline Phosphatase C-Reactive Protein Serum Total Protein Total Protein Albumin Prealbumin Hnwqe-9-Lecimktwd Zwxct-5-Nadkhdjpi Gamma Globulins PEP Interpretation Triglycerides Urine pH Urine Creatinine Urine Total Protein Vancomycin Trough Digoxin Crossmatch 11/06/19 11/07/19 11/07/19 23:29 04:06 04:06 WBC 13.0 H RBC 2.80 L Hgb 7.9 L Hct 24.0 L MCHC RDW 16.5 H Plt Count Lymph % (Auto) 7.0 L [place] % (Auto) Lymph # 0.9 L [place] # Seg Neutrophils % 86.3 H Seg Neuts % (Manual) Lymphocytes % (Manual) Seg Neutrophils # 11.2 H Seg Neutrophils # Man Lymphocytes # (Manual) Monocytes # (Manual) POC ABG pH ABG pH POC ABG pCO2 POC ABG pO2 ABG pO2 ABG HCO3 ABG Base Excess ABG Hemoglobin Oxyhemoglobin Sodium Potassium Chloride Carbon Dioxide BUN Creatinine 0.4 L Glucose 110 H POC Glucose 113 H Calcium 8.2 L Phosphorus Magnesium Direct Bilirubin AST Alkaline Phosphatase C-Reactive Protein Serum Total Protein Total Protein Albumin Prealbumin Jswus-0-Hcmeuoqtc Pqwtu-9-Hrupndtlu Gamma Globulins PEP Interpretation Triglycerides Urine pH Urine Creatinine Urine Total Protein Vancomycin Trough Digoxin Crossmatch 11/07/19 11/07/19 11/07/19 05:43 12:47 18:19 WBC RBC Hgb Hct MCHC RDW Plt Count Lymph % (Auto) [place] % (Auto) Lymph # [place] # Seg Neutrophils % Seg Neuts % (Manual) Lymphocytes % (Manual) Seg Neutrophils # Seg Neutrophils # Man Lymphocytes # (Manual) Monocytes # (Manual) POC ABG pH ABG pH POC ABG pCO2 POC ABG pO2 ABG pO2 ABG HCO3 ABG Base Excess ABG Hemoglobin Oxyhemoglobin Sodium Potassium Chloride Carbon Dioxide BUN Creatinine Glucose POC Glucose 114 H 120 H 112 H Calcium Phosphorus Magnesium Direct Bilirubin AST Alkaline Phosphatase C-Reactive Protein Serum Total Protein Total Protein Albumin Prealbumin Aejwr-0-Qcjsuermz Vnbyw-0-Izkddlupn Gamma Globulins PEP Interpretation Triglycerides Urine pH Urine Creatinine Urine Total Protein Vancomycin Trough Digoxin Crossmatch 11/08/19 11/08/19 11/08/19 03:45 03:45 11:43 WBC 12.7 H RBC 2.82 L Hgb 7.8 L Hct 24.4 L MCHC RDW 16.5 H Plt Count Lymph % (Auto) 9.4 L [place] % (Auto) Lymph # [place] # 0.9 H Seg Neutrophils % 83.0 H Seg Neuts % (Manual) Lymphocytes % (Manual) Seg Neutrophils # 10.6 H Seg Neutrophils # Man Lymphocytes # (Manual) Monocytes # (Manual) POC ABG pH ABG pH POC ABG pCO2 POC ABG pO2 ABG pO2 ABG HCO3 ABG Base Excess ABG Hemoglobin Oxyhemoglobin Sodium Potassium Chloride Carbon Dioxide BUN Creatinine 0.4 L Glucose 107 H POC Glucose 118 H Calcium Phosphorus Magnesium Direct Bilirubin AST Alkaline Phosphatase C-Reactive Protein Serum Total Protein Total Protein Albumin Prealbumin Ovwin-8-Lixfmldcm Mctqi-3-Zfssjvmcx Gamma Globulins PEP Interpretation Triglycerides Urine pH Urine Creatinine Urine Total Protein Vancomycin Trough Digoxin Crossmatch 11/08/19 11/09/19 11/09/19 23:45 12:41 12:56 WBC RBC Hgb Hct MCHC RDW Plt Count Lymph % (Auto) [place] % (Auto) Lymph # [place] # Seg Neutrophils % Seg Neuts % (Manual) Lymphocytes % (Manual) Seg Neutrophils # Seg Neutrophils # Man Lymphocytes # (Manual) Monocytes # (Manual) POC ABG pH ABG pH POC ABG pCO2 POC ABG pO2 ABG pO2 ABG HCO3 ABG Base Excess ABG Hemoglobin Oxyhemoglobin Sodium Potassium Chloride Carbon Dioxide BUN Creatinine Glucose POC Glucose 113 H 107 H 122 H Calcium Phosphorus Magnesium Direct Bilirubin AST Alkaline Phosphatase C-Reactive Protein Serum Total Protein Total Protein Albumin Prealbumin Lxlvw-4-Ozbhrbcgg Kepxm-7-Pmyjjeeve Gamma Globulins PEP Interpretation Triglycerides Urine pH Urine Creatinine Urine Total Protein Vancomycin Trough Digoxin Crossmatch 11/10/19 11/10/19 05:12 12:20 WBC RBC Hgb Hct MCHC RDW Plt Count Lymph % (Auto) [place] % (Auto) Lymph # [place] # Seg Neutrophils % Seg Neuts % (Manual) Lymphocytes % (Manual) Seg Neutrophils # Seg Neutrophils # Man Lymphocytes # (Manual) Monocytes # (Manual) POC ABG pH ABG pH POC ABG pCO2 POC ABG pO2 ABG pO2 ABG HCO3 ABG Base Excess ABG Hemoglobin Oxyhemoglobin Sodium Potassium Chloride Carbon Dioxide BUN Creatinine Glucose POC Glucose 127 H 125 H Calcium Phosphorus Magnesium Direct Bilirubin AST Alkaline Phosphatase C-Reactive Protein Serum Total Protein Total Protein Albumin Prealbumin Ihmhk-1-Hqntwgsdo Xucwy-9-Vygnjowdj Gamma Globulins PEP Interpretation Triglycerides Urine pH Urine Creatinine Urine Total Protein Vancomycin Trough Digoxin Crossmatch
--- NOTE | 2019-11-10 14:58 | Event Note ---
Date: 11/10/19 Patient is a complicated patient with multiple comorbidities. Will see about chest tube removal on tuesday (). That way if issues arise, it is a day with full staffing in the hospital.
[2019-11-10] MEDS ORDERED: ZOLPIDEM 5 MG TAB FEEDTUBE PRN (21:00)
[2019-11-10] MEDS: ENOXAPARIN 40 MG/0.4 ML INJ SUB-Q SCH (21:18)
[2019-11-11] MEDS: INSULIN LISPRO 100 UNIT/ML SUB-Q SCH ×4 (00:05→18:56)
[2019-11-11] MEDS: IPRATROPIUM/ALBUTEROL SULFATE 3 ML AMPUL.NEB IH SCH ×4 (02:42→20:47)
[2019-11-11] MEDS: ARFORMOTEROL 15 MCG/2 ML NEBU IH SCH ×2 (07:10→20:47)
[2019-11-11] MEDS: BUDESONIDE 0.5 MG/2 ML NEBU IH SCH ×2 (07:10→20:47)
--- NOTE | 2019-11-11 08:54 | Progress Note ---
Assessment and Plan Assessment and plan: Sepsis, recurrent. Etiology likely secondary to fluid collection/abscess in the abdomen and anastomotic leak. Given recent prolonged exposure to abx and TPN, at risk of MDR infections, ID started empiric Meropenem and Micafungin Dehiscence of closure of fascia * Went to OR for ex lap with closure of abdominal wall and wound vac placement (10/05) * Continued to decline with possible Air vs fluid, 10/10/19 IR went in and placed two drains, Noted to have possible fecal material * Returned to the OR 10/13/19 due to concern for intra-abdominal infection and was found to have with heavy contamination of abdomen patent had disruption of bowel anastomosis, abdominal washout, abthera placement and colon stapled transection and left bowel enterotomy from anastomosis completely open * Returned to OR on 10/16/19 for abdominal washout, Partial Omentectomy, Partial Colectomy, Colostomy Creation and AbThera Placement * Abdominal washout and closure - 10/22 * cont wound care Acute Respiratory failure with hypoxia -Extubated 10/25/19 -Re-intubated 10/30 -Patient self extubated morning of 11/04, now on Oxygen by NC -Cake Decorator following -Multifactorial secondary to pneumonia, pneumothorax and COPD Sepsis On Merrem, Micafungin ID Physician following right sump drain fell out Surgeon following Left pneumothorax s/p chest tube placed 10/30 Chest tube with no air leak or significant output. Chest x-ray with no obvious signs of pneumothorax. Pulmonary considering to remove chest tube soon Left lower lobe pneumonia -CTA chest showed left lower lobe consolidation with pleural effusion COPD -Stable -cont neb tx GUILLERMO on CKD -due to ATN due to sepsis -Improving, will monitor -SPEP and UPEP pending -No hydronephrosis on CT -[place] in place, monitor I/O's Severe Metabolic acidosis -Improved Acute Toxic Metabolic Encephalopathy/Delirium Tremens -Started on CIWA protocol due to hx of ETOH abuse, 6packs a day -Head CT scan negative for acute findings Acute blood loss anemia -H/H stable -Continue to monitor H&H and transfuse for hb<7 SVT, Atrial fib/flutter with RVR -treated with adenosine x1 -off amiodarone and cardizem drip. On oral amiodarone and IV Lopressor. -HR currently controlled -Cardiology following Hypotension -Off esmolol drip -s/p IV fluid boluses, BP stable Hypophosphatemia -will monitor level Hypernatremia start D5W Hypokalemia Replace iv Hx of Hypertension -Stable Hyperlipidemia -stable Atypical chest pain -probably secondary to pneumonitis -troponin levels neg Hx of MA/CAD -s/p PCI of the circumflex and second vessel POBA of the distal LAD occlusion. Left ventricle fraction of 45-50%. Morbid obesity with BMI of 43.4 -Lifestyle modification recommended Moderate Protein calorie malnutrition secondary to surgery -On TPN -Nutrition following Tobacco abuse -Cessation recommended Morbid obesity with BMI of 43.4 -Lifestyle modification recommended DVT and GI ppx: Lovenox/PPI Disp: Prognosis guarded History Interval history: No new issues overnight Hospitalist Physical - Constitutional Vitals: Temp Pulse Resp BP Pulse Ox 98.3 F 96 H 23 102/58 93 11/11/19 08:00 11/11/19 08:30 11/11/19 08:30 11/11/19 08:30 11/11/19 08:30 General appearance: Present: no acute distress, obese - EENT Eyes: Present: PERRL, EOM intact ENT: hearing intact, clear oral mucosa, dentition normal - Neck Neck: Present: supple, normal ROM - Respiratory Respiratory effort: normal Respiratory: bilateral: CTA - Cardiovascular Rhythm: regular Heart Sounds: Present: S1 & S2. Absent: gallop, rub - Extremities Extremities: no ischemia, No edema, Full ROM - Abdominal General gastrointestinal: soft, non-tender, non-distended, normal bowel sounds - Integumentary Integumentary: Present: clear, warm, dry - Neurologic Neurologic: CNII-XII intact, moves all extremities Results - Labs CBC & Chem 7: 11/08/19 03:45 11/08/19 03:45 Labs: Laboratory Last Values WBC 12.7 K/mm3 (4.5-11.0) H 11/08/19 03:45 RBC 2.82 M/mm3 (3.65-5.03) L 11/08/19 03:45 Hgb 7.8 gm/dl (11.8-15.2) L 11/08/19 03:45 Hct 24.4 % (35.5-45.6) L 11/08/19 03:45 MCV 87 fl (84-94) 11/08/19 03:45 MCH 28 pg (28-32) 11/08/19 03:45 MCHC 32 % (32-34) 11/08/19 03:45 RDW 16.5 % (13.2-15.2) H 11/08/19 03:45 Plt Count 298 K/mm3 (140-440) 11/08/19 03:45 Lymph % (Auto) 9.4 % (13.4-35.0) L 11/08/19 03:45 [place] % (Auto) 6.9 % (0.0-7.3) 11/08/19 03:45 Eos % (Auto) 0.4 % (0.0-4.3) 11/08/19 03:45 Baso % (Auto) 0.3 % (0.0-1.8) 11/08/19 03:45 Lymph # 1.2 K/mm3 (1.2-5.4) 11/08/19 03:45 [place] # 0.9 K/mm3 (0.0-0.8) H 11/08/19 03:45 Eos # 0.1 K/mm3 (0.0-0.4) 11/08/19 03:45 Baso # 0.0 K/mm3 (0.0-0.1) 11/08/19 03:45 Add Manual Diff Complete 10/16/19 09:20 Total Counted 100 10/16/19 09:20 Seg Neutrophils % 83.0 % (40.0-70.0) H 11/08/19 03:45 Seg Neuts % (Manual) 79.0 % (40.0-70.0) H 10/16/19 09:20 Band Neutrophils % 12.0 % 10/16/19 09:20 Lymphocytes % (Manual) 4.0 % (13.4-35.0) L 10/16/19 09:20 Reactive Lymphs % (Man) 0 % 10/16/19 09:20 Monocytes % (Manual) 2.0 % (0.0-7.3) 10/16/19 09:20 Eosinophils % (Manual) 0 % (0.0-4.3) 10/16/19 09:20 Basophils % (Manual) 0 % (0.0-1.8) 10/16/19 09:20 Metamyelocytes % 2.0 % 10/16/19 09:20 Myelocytes % 1.0 % 10/16/19 09:20 Promyelocytes % 0 % 10/16/19 09:20 Blast Cells % 0 % 10/16/19 09:20 Nucleated RBC % Not Reportable 10/16/19 09:20 Seg Neutrophils # 10.6 K/mm3 (1.8-7.7) H 11/08/19 03:45 Seg Neutrophils # Man 11.5 K/mm3 (1.8-7.7) H 10/16/19 09:20 Band Neutrophils # 1.8 K/mm3 10/16/19 09:20 Lymphocytes # (Manual) 0.6 K/mm3 (1.2-5.4) L 10/16/19 09:20 Abs React Lymphs (Man) 0.0 K/mm3 10/16/19 09:20 Monocytes # (Manual) 0.3 K/mm3 (0.0-0.8) 10/16/19 09:20 Eosinophils # (Manual) 0.0 K/mm3 (0.0-0.4) 10/16/19 09:20 Basophils # (Manual) 0.0 K/mm3 (0.0-0.1) 10/16/19 09:20 Metamyelocytes # 0.3 K/mm3 10/16/19 09:20 Myelocytes # 0.1 K/mm3 10/16/19 09:20 Promyelocytes # 0.0 K/mm3 10/16/19 09:20 Blast Cells # 0.0 K/mm3 10/16/19 09:20 WBC Morphology Not Reportable 10/16/19 09:20 Hypersegmented Neuts Not Reportable 10/16/19 09:20 Hyposegmented Neuts Not Reportable 10/16/19 09:20 Hypogranular Neuts Not Reportable 10/16/19 09:20 Smudge Cells Not Reportable 10/16/19 09:20 Toxic Granulation Not Reportable 10/16/19 09:20 Toxic Vacuolation Not Reportable 10/16/19 09:20 Dohle Bodies Not Reportable 10/16/19 09:20 Pelger-Huet Anomaly Not Reportable 10/16/19 09:20 Andres Rods Not Reportable 10/16/19 09:20 Platelet Estimate Consistent w auto 10/16/19 09:20 Clumped Platelets Not Reportable 10/16/19 09:20 Plt Clumps, EDTA Not Reportable 10/16/19 09:20 Large Platelets Not Reportable 10/16/19 09:20 Giant Platelets Not Reportable 10/16/19 09:20 Platelet Satelliting Not Reportable 10/16/19 09:20 Plt Morphology Comment Not Reportable 10/16/19 09:20 RBC Morphology Not Reportable 10/16/19 09:20 Dimorphic RBCs Not Reportable 10/16/19 09:20 Polychromasia Few 10/16/19 09:20 Hypochromasia Few 10/16/19 09:20 Poikilocytosis Not Reportable 10/16/19 09:20 Anisocytosis Not Reportable 10/16/19 09:20 Microcytosis Not Reportable 10/16/19 09:20 Macrocytosis Not Reportable 10/16/19 09:20 Spherocytes Not Reportable 10/16/19 09:20 Pappenheimer Bodies Not Reportable 10/16/19 09:20 Sickle Cells Not Reportable 10/16/19 09:20 Target Cells Few 10/16/19 09:20 Tear Drop Cells Not Reportable 10/16/19 09:20 Ovalocytes Not Reportable 10/16/19 09:20 Helmet Cells Not Reportable 10/16/19 09:20 [place] Bodies Not Reportable 10/16/19 09:20 [place] Rings Not Reportable 10/16/19 09:20 Bishnu Cells Not Reportable 10/16/19 09:20 Bite Cells Not Reportable 10/16/19 09:20 Crenated Cell Not Reportable 10/16/19 09:20 Elliptocytes Not Reportable 10/16/19 09:20 Acanthocytes (Spur) Not Reportable 10/16/19 09:20 Rouleaux Not Reportable 10/16/19 09:20 Hemoglobin C Crystals Not Reportable 10/16/19 09:20 Schistocytes Not Reportable 10/16/19 09:20 Malaria parasites Not Reportable 10/16/19 09:20 Otni Bodies Not Reportable 10/16/19 09:20 Hem Pathologist Commnt No 10/16/19 09:20 POC ABG pH 7.422 (7.35-7.45) 11/03/19 04:28 ABG pH 7.390 pH Units (7.350-7.450) 10/23/19 04:47 POC ABG pCO2 45.4 (35-45) H 11/03/19 04:28 ABG pCO2 48.4 mm Hg 10/23/19 04:47 POC ABG pO2 83 (80-105) 11/03/19 04:28 ABG pO2 68.9 mm Hg (80.0-90.0) L 10/23/19 04:47 POC ABG HCO3 29.6 (22-26 mml/L) 11/03/19 04:28 ABG HCO3 28.7 mmol/L (20.0-26.0) H 10/23/19 04:47 POC ABG Total CO2 31 (23-27mmol/L) 11/03/19 04:28 POC ABG O2 Sat 96 11/03/19 04:28 ABG O2 Saturation 96.6 % (95.0-99.0) 10/23/19 04:47 ABG O2 Content 8.8 (0.0-44) 10/23/19 04:47 POC ABG Base Excess 5 ((-2) - (+3)mmol/L) 11/03/19 04:28 ABG Base Excess 3.4 mmol/L (-2.0-3.0) H 10/23/19 04:47 ABG Hemoglobin 6.6 gm/dl (14.0-18.0) L 10/23/19 04:47 ABG Carboxyhemoglobin 2.1 % (0.0-5.0) 10/23/19 04:47 ABG Methemoglobin 0.5 % (0.0-1.5) 10/23/19 04:47 Oxyhemoglobin 94.1 % (95.0-99.0) L 10/23/19 04:47 FiO2 40 % 11/03/19 04:28 Sodium 141 mmol/L (137-145) 11/08/19 03:45 Potassium 3.7 mmol/L (3.6-5.0) 11/08/19 03:45 Chloride 98.6 mmol/L (98-107) 11/08/19 03:45 Carbon Dioxide 30 mmol/L (22-30) 11/08/19 03:45 Anion Gap 16 mmol/L 11/08/19 03:45 BUN 13 mg/dL (9-20) 11/08/19 03:45 Creatinine 0.4 mg/dL (0.8-1.5) L 11/08/19 03:45 Estimated GFR > 60 ml/min 11/08/19 03:45 BUN/Creatinine Ratio 33 % 11/08/19 03:45 Glucose 107 mg/dL (75-100) H 11/08/19 03:45 POC Glucose 97 (70-105) 11/11/19 06:14 Hemoglobin A1c 5.7 % (4-6) 10/06/19 05:36 Lactic Acid 1.10 mmol/L (0.7-2.0) 10/13/19 04:20 Calcium 8.6 mg/dL (8.4-10.2) 11/08/19 03:45 Ionized Calcium 5.2 mg/dL (4.8-5.6) 10/18/19 07:41 Phosphorus 2.70 mg/dL (2.5-4.5) 11/02/19 12:43 Magnesium 2.40 mg/dL (1.7-2.3) H 11/02/19 12:43 Total Bilirubin 1.10 mg/dL (0.1-1.2) 10/26/19 06:15 Direct Bilirubin 0.7 mg/dL (0-0.2) H 10/23/19 10:44 Indirect Bilirubin 0.1 mg/dL 10/23/19 10:44 AST 23 units/L (5-40) 10/26/19 06:15 ALT 13 units/L (7-56) 10/26/19 06:15 Alkaline Phosphatase 148 units/L (35-129) H 10/26/19 06:15 Ammonia 49.0 umol/L (25-60) 10/13/19 04:20 Troponin T < 0.010 ng/mL (0.00-0.029) 10/09/19 17:23 C-Reactive Protein 30.60 mg/dL (0.00-1.30) H 10/15/19 04:32 Serum Total Protein 5.2 g/dL (6.1-8.1) L 10/11/19 09:00 Total Protein 5.9 g/dL (6.3-8.2) L 10/26/19 06:15 Albumin 2.4 g/dL (3.9-5) L 10/26/19 06:15 Albumin/Globulin Ratio 0.7 % 10/26/19 06:15 Prealbumin 0.030 g/L (0.200-0.400) L 10/15/19 04:32 Wcyqu-6-Knhhqbbxx See scanned result 10/11/19 Unknown Qmfdv-1-Neyqmuxxp See scanned result 10/11/19 Unknown Beta Globulins See scanned result 10/11/19 Unknown Gamma Globulins See scanned result 10/11/19 Unknown Abnorm Protein Band 1 see below 10/11/19 09:00 PEP Interpretation See scanned result 10/11/19 Unknown Triglycerides 185 mg/dL (2-149) H 10/26/19 06:15 Urine Color Yellow (Yellow) 10/26/19 Unknown Urine Turbidity Clear (Clear) 10/26/19 Unknown Urine pH 9.0 (5.0-7.0) H 10/26/19 Unknown Ur Specific Victor 1.011 (1.003-1.030) 10/26/19 Unknown Urine Protein 30 mg/dl mg/dL (Negative) 10/26/19 Unknown Urine Glucose (UA) Neg mg/dL (Negative) 10/26/19 Unknown Urine Ketones Neg mg/dL (Negative) 10/26/19 Unknown Urine Blood Neg (Negative) 10/26/19 Unknown Urine Nitrite Neg (Negative) 10/26/19 Unknown Urine Bilirubin Neg (Negative) 10/26/19 Unknown Urine Urobilinogen < 2.0 mg/dL (<2.0) 10/26/19 Unknown Ur Leukocyte Esterase Neg (Negative) 10/26/19 Unknown Urine WBC (Auto) 1.0 /HPF (0.0-6.0) 10/26/19 Unknown Urine RBC (Auto) 1.0 /HPF (0.0-6.0) 10/26/19 Unknown Urine Bacteria (Auto) 1+ /HPF (Negative) 10/11/19 06:23 Urine Mucus Few /HPF 10/26/19 Unknown Urine Eosinophils None seen (None Seen) 10/11/19 06:23 Ur Random Creatinine See scanned result 10/11/19 Unknown U Random Total Protein See scanned result 10/11/19 Unknown Urine Creatinine 116.8 mg/dL (0.1-20.0) H 10/11/19 06:23 Urine Creatinine 118.2 mg/dL (0.1-20.0) H 10/11/19 06:23 Protein/Creatinin Ratio See scanned result 10/11/19 Unknown Urine Sodium 14 mmol/L 10/11/19 06:23 Urine Total Protein 104 mg/dL (5-11.8) H 10/11/19 06:23 Urine Total Protein 105 mg/dL (5-11.8) H 10/11/19 06:23 U Abnormal Prot Band 1 See scanned result 10/11/19 Unknown U Abnormal Prot Band 2 See scanned result 10/11/19 Unknown U Abnormal Prot Band 3 See scanned result 10/11/19 Unknown Vancomycin Trough 5.7 ug/mL (5.0-20.0) 11/05/19 09:00 Random Vancomycin 9.6 ug/mL (0-40.0) 11/03/19 03:42 Digoxin 0.7 ng/mL (0.9-2.0) L 10/19/19 04:21 Blood Type A POSITIVE 10/23/19 11:50 Antibody Screen Negative 10/23/19 11:50 Crossmatch See Detail 10/23/19 11:50 Active Medications - Current Medications Current Medications: Generic Name Dose Route Start Last Admin Trade Name Freq PRN Reason Stop Dose Admin Acetaminophen 650 mg 10/25/19 13:00 11/03/19 16:03 Tylenol FEEDTUBE 650 mg Q4H PRN Administration Fever >100.5 Acetaminophen/Hydrocodone Bitart 7.5 mg 11/07/19 16:57 Hydrocodone/Apap 7.5-325 FEEDTUBE Q4H PRN Pain, Moderate (4-6) Albuterol/Ipratropium 1 ampul 10/06/19 02:00 11/11/19 07:10 Duoneb *Not For Prn Use* IH 1 ampul Q6HRT VERÓNICA Administration Amiodarone HCl 200 mg 10/23/19 13:00 11/10/19 10:49 Cordarone PO 200 mg QDAY VERÓNICA Administration Lipase/Protease/Amylase 1 each 10/20/19 10:37 Pancreazanamika Moreno 10,500 Unit FEEDTUBE PRN PRN For Clogged Feeding Tube Arformoterol Tartrate 15 mcg 10/06/19 08:30 11/11/19 07:10 Brovana Nebu IH 15 mcg Q12HRT VERÓNICA Administration Budesonide 0.5 mg 10/07/19 12:20 11/11/19 07:10 Pulmicort IH 0.5 mg Q12HRT VERÓNICA Administration Citalopram Hydrobromide 20 mg 10/27/19 12:00 11/10/19 10:49 Celexa PO 20 mg DAILY VERÓNICA Administration Enoxaparin Sodium 40 mg 11/05/19 22:00 11/10/19 21:18 Enoxaparin SUB-Q 40 mg QDAY@2200 VERÓNICA Administration Haloperidol Lactate 5 mg 10/25/19 18:22 11/03/19 21:22 Haldol IV 5 mg Q6H PRN Administration Agitation Hydralazine HCl 10 mg 10/28/19 14:09 11/02/19 15:34 Apresoline IV 10 mg Q4HR PRN Administration Hypertension Hydromorphone HCl 2 mg 10/25/19 12:35 11/10/19 22:01 Dilaudid IV 2 mg Q4H PRN Administration Pain , Severe (7-10) Insulin Human Lispro 0 unit 10/14/19 12:00 11/11/19 00:05 Humalog SUB-Q Not Given Q6HR [facility] Protocol Lisinopril 20 mg 10/30/19 10:00 11/10/19 10:49 Zestril PO 20 mg QDAY VERÓNICA Administration Metoprolol Tartrate 2.5 mg 10/15/19 15:34 11/01/19 18:00 Metoprolol IV 2.5 mg Q4HR PRN Administration HR >130 Metoprolol Tartrate 50 mg 10/25/19 14:00 11/10/19 21:18 Metoprolol PO 50 mg Q8HR [facility] Administration Multi-Ingred Cream/Lotion/Oil/Oint 1 applic 10/14/19 02:19 Artificial Tears Ophth Oint OU Q4HR PRN Dry Eye(s) Pantoprazole Sodium 40 mg 10/15/19 10:00 11/10/19 10:48 Protonix IV 40 mg QDAY VERÓNICA Administration Simple Syrup 15 ml 10/20/19 10:37 Simple Syrup FEEDTUBE PRN PRN Hypoglycemia Simple Syrup 30 ml 10/20/19 10:37 Simple Syrup FEEDTUBE PRN PRN Hypoglycemia Sodium Bicarbonate 325 mg 10/20/19 10:37 Sodium Bicarbonate FEEDTUBE PRN PRN For Clogged Feeding Tube Sodium Chloride 10 ml 11/07/19 19:32 11/08/19 09:10 Sodium Chloride Flush Syringe 10 Ml IV 10 ml PRN PRN Administration LINE FLUSH Zolpidem Tartrate 5 mg 11/10/19 21:00 11/11/19 03:30 Ambien FEEDTUBE 5 mg QHS PRN Administration Sleep Nutrition/Malnutrition Assess - Dietary Evaluation Nutrition/Malnutrition Findings: Nutrition Notes Start: 10/08/19 11:36 Freq: Status: Active Protocol: Document 11/05/19 11:30 LM (Rec: 11/05/19 11:39 LM [id number]) Nutrition Notes Initial or Follow up Reassessment Other Pertinent Diagnosis intra-abdominal infection, disruption of bowel anastomosis, LE edema Current Diet Osmolite 1.5 at 60 ml/hr Labs/Tests K 3.4 Cr 0.4 BG 106 HgbA1C 5.7 Pertinent Medications Reviewed Height 6 ft Weight 145 kg [place] Body Weight (kg) 80.90 BMI 43.3 Weight Status Morbidly Obese Subjective/Other Information Osmolite running at 60 ml/hr. Pt tolerating new TF. Percent of energy/protein needs met: 100%/66% Burn Absent Trauma Absent GI Symptoms None Current % PO Negligible Minimum of two criteria No physical signs of malnutrition Fluid Accumulation Mild (non-severe) #2 Nutrition Diagnosis Inadequate oral intake Diagnosis Progress(for reassessment Continues documentation) #1 Nutrition Diagnosis Increased nutrient needs ( specify in comment below) Diagnosis Progress(for reassessment Continues documentation) Is patient on ventilator? No Is Patient Ambulatory and/or Out of Bed No REE-([place]-confined to bed) 2785.236 Kcal/Kg value to use for calculation 14 Approximate Energy Requirements Using 2030 kcal/Kg Calculation Used for Recommendations Kcal/kg Additional Notes Protein: 136-169g (1.2-1.5g/kg ) AdjBW 113kg Fluid 1 ml/kcal or per MD Nutrition Intervention Change Diet Order: Continue TF Nutrition Support: Osmolite 1.5 at 60 ml/hr Flush 170 ml q4hr Kcal 2,160 Protein (gm) 90 Fluid (mL) 1,097 Goal #1 Meet at least 80% of kcal/ protein needs via TF Goal #2 TF tolerance Anticipated Discharge Needs: unable to determine at this time Follow-Up By: 11/12/19 Additional Comments F/U for TF tolerance
[2019-11-11] MEDS: METOPROLOL TARTRATE 50 MG TAB PO SCH ×3 (09:04→21:36)
[2019-11-11] MEDS: CITALOPRAM 20 MG TAB PO SCH (10:00)
[2019-11-11] MEDS: LISINOPRIL 20 MG TAB PO SCH (10:00)
[2019-11-11] MEDS: AMIODARONE 200 MG TAB PO SCH (10:01)
[2019-11-11] MEDS: PANTOPRAZOLE 40 MG INJ IV SCH (10:01)
--- NOTE | 2019-11-11 12:26 | Progress Note ---
Assessment and Plan - Patient Problems (1) Dehiscence of closure of fascia, superficial or muscular Current Visit: No Status: Acute Qualifiers: Encounter type: initial encounter Qualified Code(s): T81.32XA - Disruption of internal operation (surgical) wound, not elsewhere classified, initial encounter Plan to address problem: Pt stable. s/p ex lap with closure of abdominal wall and wound vac placement (10/05) - POD#37; s/p Re-exploration, washout, transection of colon, Abthera placement - 10/13 - POD#29; s/p abd washout, partial omentectomy, partial colectomy with colostomy - 10/16 POD#26. s/p abd washout, feeding tube placement, AbThera placement - 10/19 - POD#23; Abdominal washout and closure - 10/22 - POD#20 Patient appears stable. WBC stable, but no fevers. Looks well today. Rec: 1) Neuro - self-extubated 11/04. 2) CV - BP normal today 3) Resp - On NC. Small bore CT on left. Mgmt per ICU team. Respiratory rate much better. 4) GI - Ostomy looks good. Functioning. Sump drains - Right drain was accidentally pulled out (10/30). Left one is still functioning. New small bore catheter placed 10/30 - moderate output after drain was stripped. Has appeared like stool. looking thinner and more yellow today. Plan to connect both to wall suction - continuous. Output slowly trending down. Midline drain - seems to be working well. may eventually become main drain and we can remove the two left sided drains if their output is minimal. Wound Vac - wound looked good on last check. continue wound vac. Ostomy - functioning now. Some solid stool in bag. Gastric Port - Appears to be tolerating the clamping. Residuals are minimal (occasional high numbers). Ok to give water flushes in place of IVFs Rectal tube (malecot) - placed to help decompress rectosigmoid area. Ok if there is drainage around the tube. Irrigation BID. Will consider removal the week of Nov 26. 5) - BUN/Cr stable. 6) ID - Abx per ID. Enterococcus on cultures. If patient has worsening labs/vitals, then rescan and place additional drains as appropriate. Discussed Abx plan with Dr. Lorenzo. I am ok with trial off Abx, 7) Nutrition - Tube feeds at goal. Passed Speech Eval. Will start with Full Liquid diet today and advance as tolerated. When taking liquids well, will cut back on tube feeds. Will d/c once we are sure that he is meeting his nutritional needs by mouth. 8) DVT prophylaxis - SCDs. Lovenox 9) Family -no family at bedside. Communicated with over the phone 10) PT - will need rehab. 11) Dispo - Ok from my perspective to move patient to [facility] status. Note: Spoke with [facility] on 11/01/19 about possible transfer. They reviewed the notes that were sent and we discussed the case. They felt that they had nothing else to offer. They agreed with our management. Also agreed that another exploration should not be done. If needed, additional drains can be placed. They did suggest putting a Malecot tube in the rectum to decompress that area. (That has been done). This conversation was communicated to the . Please call with questions. Subjective Date of service: 11/11/19 Patient Reports: Positive: other (passed swallow eval. no other events o/n) Objective Vital Signs - 12hr 11/11/19 11/11/19 11/11/19 00:30 01:00 01:30 Temperature Pulse Rate 81 77 79 Pulse Rate [ Anterior Bilateral Throughout] Pulse Rate [ From Monitor] Respiratory 13 14 11 L Rate Respiratory Rate [Anterior Bilateral Throughout] Blood Pressure 118/67 110/60 111/57 O2 Sat by Pulse 96 99 97 Oximetry 11/11/19 11/11/19 11/11/19 02:00 02:30 02:49 Temperature Pulse Rate 79 78 Pulse Rate [ 81 Anterior Bilateral Throughout] Pulse Rate [ From Monitor] Respiratory 11 L 14 Rate Respiratory 17 Rate [Anterior Bilateral Throughout] Blood Pressure 116/62 107/59 O2 Sat by Pulse 100 98 Oximetry 11/11/19 11/11/19 11/11/19 03:00 03:30 03:34 Temperature Pulse Rate 80 85 Pulse Rate [ Anterior Bilateral Throughout] Pulse Rate [ 80 From Monitor] Respiratory 12 13 19 Rate Respiratory Rate [Anterior Bilateral Throughout] Blood Pressure 110/55 136/73 O2 Sat by Pulse 96 97 96 Oximetry 11/11/19 11/11/19 11/11/19 04:00 04:30 04:31 Temperature 98.0 F Pulse Rate 82 82 Pulse Rate [ Anterior Bilateral Throughout] Pulse Rate [ From Monitor] Respiratory 14 11 L Rate Respiratory Rate [Anterior Bilateral Throughout] Blood Pressure 126/70 101/55 O2 Sat by Pulse 97 93 Oximetry 11/11/19 11/11/19 11/11/19 05:00 05:30 06:00 Temperature Pulse Rate 82 82 82 Pulse Rate [ Anterior Bilateral Throughout] Pulse Rate [ From Monitor] Respiratory 18 21 27 H Rate Respiratory Rate [Anterior Bilateral Throughout] Blood Pressure 101/55 107/54 108/56 O2 Sat by Pulse 97 96 97 Oximetry 11/11/19 11/11/19 11/11/19 06:30 07:00 07:10 Temperature Pulse Rate 84 82 Pulse Rate [ 89 Anterior Bilateral Throughout] Pulse Rate [ From Monitor] Respiratory 15 19 Rate Respiratory 20 Rate [Anterior Bilateral Throughout] Blood Pressure 93/58 90/57 O2 Sat by Pulse 95 96 96 Oximetry 11/11/19 11/11/19 11/11/19 07:30 08:00 08:01 Temperature 98.3 F Pulse Rate 88 96 H Pulse Rate [ Anterior Bilateral Throughout] Pulse Rate [ From Monitor] Respiratory 19 26 H Rate Respiratory Rate [Anterior Bilateral Throughout] Blood Pressure 114/67 120/64 O2 Sat by Pulse 94 93 Oximetry 11/11/19 11/11/19 08:30 10:00 Temperature Pulse Rate 96 H 92 H Pulse Rate [ Anterior Bilateral Throughout] Pulse Rate [ From Monitor] Respiratory 23 Rate Respiratory Rate [Anterior Bilateral Throughout] Blood Pressure 102/58 127/61 O2 Sat by Pulse 93 Oximetry - General physical appearance no distress, no pain, obese, other (talking clearly, but confused) - Eyes normal occular movement - Respiratory normal expansion, normal respiratory effort - Abdomen soft, not tender, not distended, other (wound vac intact with minimal drainage. Minimal accumulation under sponge. Output from drains is starting to get thinner.) - Labs 11/08/19 03:45 11/08/19 03:45
--- NOTE | 2019-11-11 14:31 | Progress Note ---
Assessment and Plan Imp: 1. Colon perforation/peritonitis/anastamotic leak s/p multiple surgeries 2. Sepsis 3. Acute respiratory failure, hypoxia 4. Obesity 5. KALI 6. Centrilobular emphysema, severe 7. Chronic nicotine dependence, cigarettes 8. HTN 9. CAD s/p PCI 10. Ischemic cardiomyopathy 11. PTX on L, resolved 12. ICU psychosis? Rec: 1. ABX per ID 2. Wean O2 to keep sats 88% or > 3. Cont. current nebs 4. Optimize nutrition; monitor elytes; agree with ST re-eval. of swallowing prior to taking PO 5. DVT PPx 6. Stop smoking 7. Chest tube with no air leak and no significant output; no obvious PTX on most recent CXR; will see if IR can remove it Total critical care time 31 minute Subjective Date of service: 11/11/19 Principal diagnosis: acute renal failure Interval history: No significant shortness of breath, no new complaints. On oral diet, tolerating it well. Confused and somewhat disoriented today Objective Vital Signs - 12hr 11/11/19 11/11/19 11/11/19 02:30 02:49 03:00 Temperature Pulse Rate 78 80 Pulse Rate [ 81 Anterior Bilateral Throughout] Pulse Rate [ From Monitor] Respiratory 14 12 Rate Respiratory 17 Rate [Anterior Bilateral Throughout] Blood Pressure 107/59 110/55 O2 Sat by Pulse 98 96 Oximetry 11/11/19 11/11/19 11/11/19 03:30 03:34 04:00 Temperature Pulse Rate 85 82 Pulse Rate [ Anterior Bilateral Throughout] Pulse Rate [ 80 From Monitor] Respiratory 13 19 14 Rate Respiratory Rate [Anterior Bilateral Throughout] Blood Pressure 136/73 126/70 O2 Sat by Pulse 97 96 97 Oximetry 11/11/19 11/11/19 11/11/19 04:30 04:31 05:00 Temperature 98.0 F Pulse Rate 82 82 Pulse Rate [ Anterior Bilateral Throughout] Pulse Rate [ From Monitor] Respiratory 11 L 18 Rate Respiratory Rate [Anterior Bilateral Throughout] Blood Pressure 101/55 101/55 O2 Sat by Pulse 93 97 Oximetry 11/11/19 11/11/19 11/11/19 05:30 06:00 06:30 Temperature Pulse Rate 82 82 84 Pulse Rate [ Anterior Bilateral Throughout] Pulse Rate [ From Monitor] Respiratory 21 27 H 15 Rate Respiratory Rate [Anterior Bilateral Throughout] Blood Pressure 107/54 108/56 93/58 O2 Sat by Pulse 96 97 95 Oximetry 11/11/19 11/11/19 11/11/19 07:00 07:10 07:30 Temperature Pulse Rate 82 88 Pulse Rate [ 89 Anterior Bilateral Throughout] Pulse Rate [ From Monitor] Respiratory 19 19 Rate Respiratory 20 Rate [Anterior Bilateral Throughout] Blood Pressure 90/57 114/67 O2 Sat by Pulse 96 96 94 Oximetry 11/11/19 11/11/19 11/11/19 08:00 08:01 08:30 Temperature 98.3 F Pulse Rate 96 H 96 H Pulse Rate [ Anterior Bilateral Throughout] Pulse Rate [ From Monitor] Respiratory 26 H 23 Rate Respiratory Rate [Anterior Bilateral Throughout] Blood Pressure 120/64 102/58 O2 Sat by Pulse 93 93 Oximetry 11/11/19 11/11/19 10:00 12:00 Temperature 98.1 F Pulse Rate 92 H Pulse Rate [ Anterior Bilateral Throughout] Pulse Rate [ From Monitor] Respiratory Rate Respiratory Rate [Anterior Bilateral Throughout] Blood Pressure 127/61 O2 Sat by Pulse Oximetry Constitutional: no acute distress, alert, other (obese) Eyes: non-icteric ENT: oropharynx moist Neck: supple Effort: normal Ascultation: Bilateral: diminished breath sounds (bases) Cardiovascular: regular rate and rhythm (no mrg) Gastrointestinal: tender, other (obese, distended, ostomy in place; wound vac in place) Integumentary: normal Extremities: no cyanosis, pink and warm, edema (1+ bilateral LE edema) Neurologic: normal mental status, non-focal exam, pupils equal and round Psychiatric: mood appropriate, affect normal CBC and BMP: 11/08/19 03:45 11/08/19 03:45 ABG, PT/INR, D-dimer: ABG POC ABG pH 7.422 (7.35-7.45) 11/03/19 04:28 ABG pH 7.390 pH Units (7.350-7.450) 10/23/19 04:47 POC ABG pCO2 45.4 (35-45) H 11/03/19 04:28 ABG pCO2 48.4 mm Hg 10/23/19 04:47 POC ABG pO2 83 (80-105) 11/03/19 04:28 ABG pO2 68.9 mm Hg (80.0-90.0) L 10/23/19 04:47 POC ABG HCO3 29.6 (22-26 mml/L) 11/03/19 04:28 POC ABG Total CO2 31 (23-27mmol/L) 11/03/19 04:28 POC ABG O2 Sat 96 11/03/19 04:28 ABG O2 Saturation 96.6 % (95.0-99.0) 10/23/19 04:47 Abnormal lab findings: Abnormal Labs 10/06/19 10/06/19 10/07/19 05:36 05:36 05:54 WBC 21.8 H 21.5 H RBC 3.55 L Hgb 10.9 L Hct 32.7 L MCHC RDW Plt Count Lymph % (Auto) [place] % (Auto) Lymph # [place] # Seg Neutrophils % Seg Neuts % (Manual) 91.0 H Lymphocytes % (Manual) 2.0 L Seg Neutrophils # Seg Neutrophils # Man 19.8 H Lymphocytes # (Manual) 0.4 L Monocytes # (Manual) 1.1 H POC ABG pH ABG pH POC ABG pCO2 POC ABG pO2 ABG pO2 ABG HCO3 ABG Base Excess ABG Hemoglobin Oxyhemoglobin Sodium 135 L Potassium Chloride 95.9 L Carbon Dioxide BUN Creatinine 0.7 L Glucose POC Glucose Calcium Phosphorus Magnesium Direct Bilirubin AST Alkaline Phosphatase C-Reactive Protein Serum Total Protein Total Protein 5.7 L Albumin 2.5 L Prealbumin Qjguy-7-Rdbvyzsxv Chnua-6-Hxxbfcdjc Gamma Globulins PEP Interpretation Triglycerides Urine pH Urine Creatinine Urine Total Protein Vancomycin Trough Digoxin Crossmatch 10/07/19 10/09/19 10/09/19 05:54 10:52 10:52 WBC 16.6 H RBC Hgb Hct MCHC RDW Plt Count 498 H Lymph % (Auto) [place] % (Auto) Lymph # [place] # Seg Neutrophils % Seg Neuts % (Manual) 93.0 H Lymphocytes % (Manual) 5.0 L Seg Neutrophils # Seg Neutrophils # Man 15.4 H Lymphocytes # (Manual) 0.8 L Monocytes # (Manual) POC ABG pH ABG pH POC ABG pCO2 POC ABG pO2 ABG pO2 ABG HCO3 ABG Base Excess ABG Hemoglobin Oxyhemoglobin Sodium Potassium Chloride 97.9 L Carbon Dioxide 20 L D BUN 23 H Creatinine 1.7 H D Glucose 109 H POC Glucose Calcium 8.1 L Phosphorus Magnesium Direct Bilirubin AST Alkaline Phosphatase C-Reactive Protein Serum Total Protein Total Protein Albumin Prealbumin Pogdr-0-Ydxlxrcqm Vgqea-1-Qdkexkqas Gamma Globulins PEP Interpretation Triglycerides Urine pH Urine Creatinine Urine Total Protein Vancomycin Trough Digoxin Crossmatch 10/09/19 10/10/19 10/10/19 17:23 05:30 05:30 WBC 14.6 H RBC Hgb 11.1 L Hct 33.5 L MCHC RDW Plt Count 527 H Lymph % (Auto) [place] % (Auto) Lymph # [place] # Seg Neutrophils % Seg Neuts % (Manual) Lymphocytes % (Manual) Seg Neutrophils # Seg Neutrophils # Man Lymphocytes # (Manual) Monocytes # (Manual) POC ABG pH ABG pH POC ABG pCO2 POC ABG pO2 ABG pO2 ABG HCO3 ABG Base Excess ABG Hemoglobin Oxyhemoglobin Sodium 130 L D Potassium 5.1 H Chloride 90.0 L 91.0 L Carbon Dioxide 20 L 20 L BUN 27 H 35 H Creatinine 1.9 H 2.0 H Glucose 104 H POC Glucose Calcium Phosphorus Magnesium Direct Bilirubin AST Alkaline Phosphatase C-Reactive Protein Serum Total Protein Total Protein Albumin Prealbumin Famgh-1-Bbzflmmze Mvymn-1-Bxlexhmwa Gamma Globulins PEP Interpretation Triglycerides Urine pH Urine Creatinine Urine Total Protein Vancomycin Trough Digoxin Crossmatch 10/10/19 10/10/19 10/11/19 08:33 08:44 05:41 WBC 13.2 H RBC Hgb 11.3 L Hct 33.8 L MCHC RDW 15.3 H Plt Count 543 H Lymph % (Auto) [place] % (Auto) Lymph # [place] # Seg Neutrophils % Seg Neuts % (Manual) Lymphocytes % (Manual) Seg Neutrophils # Seg Neutrophils # Man Lymphocytes # (Manual) Monocytes # (Manual) POC ABG pH ABG pH POC ABG pCO2 POC ABG pO2 ABG pO2 ABG HCO3 ABG Base Excess ABG Hemoglobin Oxyhemoglobin Sodium Potassium Chloride Carbon Dioxide BUN Creatinine Glucose 113 H POC Glucose 117 H Calcium Phosphorus Magnesium Direct Bilirubin AST Alkaline Phosphatase C-Reactive Protein Serum Total Protein Total Protein Albumin Prealbumin Jjjgf-6-Sawttrrqh Roesi-4-Dbdxjinqx Gamma Globulins PEP Interpretation Triglycerides Urine pH Urine Creatinine Urine Total Protein Vancomycin Trough Digoxin Crossmatch 10/11/19 10/11/19 10/11/19 05:41 06:23 06:23 WBC RBC Hgb Hct MCHC RDW Plt Count Lymph % (Auto) [place] % (Auto) Lymph # [place] # Seg Neutrophils % Seg Neuts % (Manual) Lymphocytes % (Manual) Seg Neutrophils # Seg Neutrophils # Man Lymphocytes # (Manual) Monocytes # (Manual) POC ABG pH ABG pH POC ABG pCO2 POC ABG pO2 ABG pO2 ABG HCO3 ABG Base Excess ABG Hemoglobin Oxyhemoglobin Sodium 134 L Potassium Chloride 96.3 L Carbon Dioxide BUN 37 H Creatinine Glucose 58 L POC Glucose Calcium Phosphorus 4.90 H Magnesium Direct Bilirubin AST Alkaline Phosphatase C-Reactive Protein Serum Total Protein Total Protein Albumin Prealbumin Hyzgy-2-Ytauukquj Xvnlx-4-Kyhdeozjd Gamma Globulins PEP Interpretation Triglycerides Urine pH Urine Creatinine 118.2 H 116.8 H Urine Total Protein 105 H 104 H Vancomycin Trough Digoxin Crossmatch 10/11/19 10/12/19 10/12/19 09:00 06:09 06:09 WBC 13.8 H RBC 3.39 L Hgb 10.2 L Hct 30.9 L MCHC RDW 15.5 H Plt Count 459 H Lymph % (Auto) [place] % (Auto) Lymph # [place] # Seg Neutrophils % Seg Neuts % (Manual) Lymphocytes % (Manual) Seg Neutrophils # Seg Neutrophils # Man Lymphocytes # (Manual) Monocytes # (Manual) POC ABG pH ABG pH POC ABG pCO2 POC ABG pO2 ABG pO2 ABG HCO3 ABG Base Excess ABG Hemoglobin Oxyhemoglobin Sodium 131 L Potassium Chloride 96.2 L Carbon Dioxide 21 L BUN 43 H Creatinine Glucose 72 L POC Glucose Calcium Phosphorus Magnesium Direct Bilirubin AST Alkaline Phosphatase C-Reactive Protein Serum Total Protein 5.2 L Total Protein Albumin 1.9 L Prealbumin Lnkwj-3-Fzjhhebtk 0.9 H Ihjkr-7-Oxdedenvl 1.0 H Gamma Globulins 0.7 L PEP Interpretation see below H Triglycerides Urine pH Urine Creatinine Urine Total Protein Vancomycin Trough Digoxin Crossmatch 10/12/19 10/12/19 10/12/19 08:20 09:30 09:30 WBC RBC Hgb Hct MCHC RDW Plt Count Lymph % (Auto) [place] % (Auto) Lymph # [place] # Seg Neutrophils % Seg Neuts % (Manual) Lymphocytes % (Manual) Seg Neutrophils # Seg Neutrophils # Man Lymphocytes # (Manual) Monocytes # (Manual) POC ABG pH ABG pH POC ABG pCO2 POC ABG pO2 63 L ABG pO2 ABG HCO3 ABG Base Excess ABG Hemoglobin Oxyhemoglobin Sodium Potassium Chloride Carbon Dioxide BUN Creatinine Glucose POC Glucose Calcium Phosphorus Magnesium 2.50 H Direct Bilirubin 0.3 H AST Alkaline Phosphatase C-Reactive Protein Serum Total Protein Total Protein 5.1 L Albumin 2.2 L Prealbumin Twwws-6-Ltljphior Jgnvf-1-Frzwdnkyw Gamma Globulins PEP Interpretation Triglycerides Urine pH Urine Creatinine Urine Total Protein Vancomycin Trough Digoxin Crossmatch 10/13/19 10/13/19 10/13/19 04:20 04:20 13:20 WBC 15.7 H RBC 3.64 L Hgb 10.9 L Hct 33.1 L MCHC RDW 15.8 H Plt Count 488 H Lymph % (Auto) [place] % (Auto) Lymph # [place] # Seg Neutrophils % Seg Neuts % (Manual) Lymphocytes % (Manual) Seg Neutrophils # Seg Neutrophils # Man Lymphocytes # (Manual) Monocytes # (Manual) POC ABG pH ABG pH POC ABG pCO2 POC ABG pO2 ABG pO2 ABG HCO3 ABG Base Excess ABG Hemoglobin Oxyhemoglobin Sodium Potassium Chloride Carbon Dioxide BUN 28 H Creatinine Glucose POC Glucose Calcium Phosphorus Magnesium Direct Bilirubin AST Alkaline Phosphatase C-Reactive Protein Serum Total Protein Total Protein Albumin Prealbumin Xxhfd-2-Emhdcarve Egdxy-5-Emmlerqxu Gamma Globulins PEP Interpretation Triglycerides Urine pH Urine Creatinine Urine Total Protein Vancomycin Trough Digoxin Crossmatch See Detail 10/13/19 10/13/19 10/14/19 18:24 20:05 04:47 WBC 24.2 H RBC Hgb 10.9 L Hct 34.2 L MCHC RDW 17.0 H Plt Count 442 H Lymph % (Auto) [place] % (Auto) Lymph # [place] # Seg Neutrophils % Seg Neuts % (Manual) Lymphocytes % (Manual) Seg Neutrophils # Seg Neutrophils # Man Lymphocytes # (Manual) Monocytes # (Manual) POC ABG pH ABG pH 7.180 L* 7.278 L POC ABG pCO2 POC ABG pO2 ABG pO2 130.7 H ABG HCO3 ABG Base Excess -6.5 L -6.5 L ABG Hemoglobin 12.2 L 12.3 L Oxyhemoglobin 92.9 L Sodium Potassium Chloride Carbon Dioxide BUN Creatinine Glucose POC Glucose Calcium Phosphorus Magnesium Direct Bilirubin AST Alkaline Phosphatase C-Reactive Protein Serum Total Protein Total Protein Albumin Prealbumin Wchnv-9-Uxlbvzbhy Sexey-7-Gkvftjski Gamma Globulins PEP Interpretation Triglycerides Urine pH Urine Creatinine Urine Total Protein Vancomycin Trough Digoxin Crossmatch 12/01/19 12/01/19 12/01/19 04:47 05:40 10:14 WBC RBC Hgb Hct MCHC RDW Plt Count Lymph % (Auto) [place] % (Auto) Lymph # [place] # Seg Neutrophils % Seg Neuts % (Manual) Lymphocytes % (Manual) Seg Neutrophils # Seg Neutrophils # Man Lymphocytes # (Manual) Monocytes # (Manual) POC ABG pH ABG pH POC ABG pCO2 POC ABG pO2 ABG pO2 76.3 L ABG HCO3 19.1 L ABG Base Excess -5.8 L ABG Hemoglobin 10.9 L Oxyhemoglobin 93.4 L Sodium Potassium 5.1 H D Chloride 109.2 H Carbon Dioxide 17 L BUN 38 H Creatinine 1.8 H D Glucose 104 H POC Glucose Calcium 7.4 L Phosphorus 5.60 H Magnesium Direct Bilirubin AST Alkaline Phosphatase C-Reactive Protein Serum Total Protein Total Protein Albumin Prealbumin Yyrix-7-Bzzbgwlfy Abdqs-6-Psggsoiiq Gamma Globulins PEP Interpretation Triglycerides Urine pH Urine Creatinine Urine Total Protein Vancomycin Trough Digoxin Crossmatch 10/14/19 10/15/19 10/15/19 23:46 04:32 04:32 WBC 15.5 H RBC 2.89 L Hgb 8.8 L Hct 27.3 L D MCHC RDW 16.6 H Plt Count Lymph % (Auto) [place] % (Auto) Lymph # [place] # Seg Neutrophils % Seg Neuts % (Manual) Lymphocytes % (Manual) Seg Neutrophils # Seg Neutrophils # Man Lymphocytes # (Manual) Monocytes # (Manual) POC ABG pH ABG pH POC ABG pCO2 POC ABG pO2 ABG pO2 ABG HCO3 ABG Base Excess ABG Hemoglobin Oxyhemoglobin Sodium 147 H Potassium Chloride 114.0 H Carbon Dioxide 19 L BUN 42 H Creatinine Glucose 112 H POC Glucose 113 H Calcium 7.3 L Phosphorus Magnesium Direct Bilirubin AST 72 H Alkaline Phosphatase C-Reactive Protein 30.60 H Serum Total Protein Total Protein 4.0 L D Albumin 1.7 L Prealbumin 0.030 L Txetl-7-Gnyhfjzxp Vffcc-5-Vsewtrlsu Gamma Globulins PEP Interpretation Triglycerides Urine pH Urine Creatinine Urine Total Protein Vancomycin Trough Digoxin Crossmatch 10/15/19 10/15/19 10/15/19 05:30 12:08 17:23 WBC RBC Hgb Hct MCHC RDW Plt Count Lymph % (Auto) [place] % (Auto) Lymph # [place] # Seg Neutrophils % Seg Neuts % (Manual) Lymphocytes % (Manual) Seg Neutrophils # Seg Neutrophils # Man Lymphocytes # (Manual) Monocytes # (Manual) POC ABG pH ABG pH 7.296 L POC ABG pCO2 POC ABG pO2 ABG pO2 114.7 H ABG HCO3 ABG Base Excess -3.7 L ABG Hemoglobin 8.9 L Oxyhemoglobin Sodium Potassium Chloride Carbon Dioxide BUN Creatinine Glucose POC Glucose 106 H 106 H Calcium Phosphorus Magnesium Direct Bilirubin AST Alkaline Phosphatase C-Reactive Protein Serum Total Protein Total Protein Albumin Prealbumin Mqcez-3-Bwwhlcsmi Zpney-6-Cujflbesm Gamma Globulins PEP Interpretation Triglycerides Urine pH Urine Creatinine Urine Total Protein Vancomycin Trough Digoxin Crossmatch 10/16/19 10/16/19 10/16/19 00:07 04:44 05:24 WBC RBC Hgb Hct MCHC RDW Plt Count Lymph % (Auto) [place] % (Auto) Lymph # [place] # Seg Neutrophils % Seg Neuts % (Manual) Lymphocytes % (Manual) Seg Neutrophils # Seg Neutrophils # Man Lymphocytes # (Manual) Monocytes # (Manual) POC ABG pH ABG pH POC ABG pCO2 POC ABG pO2 ABG pO2 ABG HCO3 ABG Base Excess ABG Hemoglobin Oxyhemoglobin Sodium 150 H Potassium Chloride 115.8 H Carbon Dioxide BUN 35 H Creatinine Glucose 129 H POC Glucose 119 H 129 H Calcium 7.3 L Phosphorus 1.80 L D Magnesium Direct Bilirubin AST Alkaline Phosphatase C-Reactive Protein Serum Total Protein Total Protein Albumin Prealbumin Tayzl-6-Yyhfrddhg Kwzwu-6-Ueqttlzze Gamma Globulins PEP Interpretation Triglycerides Urine pH Urine Creatinine Urine Total Protein Vancomycin Trough Digoxin Crossmatch 10/16/19 10/16/19 10/16/19 06:53 09:20 11:58 WBC 14.6 H RBC 2.70 L Hgb 8.1 L Hct 25.2 L MCHC RDW 16.7 H Plt Count Lymph % (Auto) [place] % (Auto) Lymph # [place] # Seg Neutrophils % Seg Neuts % (Manual) 79.0 H Lymphocytes % (Manual) 4.0 L Seg Neutrophils # Seg Neutrophils # Man 11.5 H Lymphocytes # (Manual) 0.6 L Monocytes # (Manual) POC ABG pH ABG pH POC ABG pCO2 47.0 H POC ABG pO2 ABG pO2 ABG HCO3 ABG Base Excess ABG Hemoglobin Oxyhemoglobin Sodium Potassium Chloride Carbon Dioxide BUN Creatinine Glucose POC Glucose Calcium Phosphorus Magnesium Direct Bilirubin AST Alkaline Phosphatase C-Reactive Protein Serum Total Protein Total Protein Albumin Prealbumin Uhtts-0-Zxmukfxje Xzqzy-6-Hmxrihcul Gamma Globulins PEP Interpretation Triglycerides Urine pH Urine Creatinine Urine Total Protein Vancomycin Trough Digoxin Crossmatch See Detail 10/16/19 10/16/19 10/16/19 15:23 17:50 23:58 WBC RBC Hgb Hct MCHC RDW Plt Count Lymph % (Auto) [place] % (Auto) Lymph # [place] # Seg Neutrophils % Seg Neuts % (Manual) Lymphocytes % (Manual) Seg Neutrophils # Seg Neutrophils # Man Lymphocytes # (Manual) Monocytes # (Manual) POC ABG pH ABG pH POC ABG pCO2 POC ABG pO2 ABG pO2 ABG HCO3 ABG Base Excess ABG Hemoglobin Oxyhemoglobin Sodium Potassium Chloride Carbon Dioxide BUN Creatinine Glucose POC Glucose 221 H 201 H 179 H Calcium Phosphorus Magnesium Direct Bilirubin AST Alkaline Phosphatase C-Reactive Protein Serum Total Protein Total Protein Albumin Prealbumin Ibafo-2-Mmdtjlxig Tzblm-9-Vzsbeuuqw Gamma Globulins PEP Interpretation Triglycerides Urine pH Urine Creatinine Urine Total Protein Vancomycin Trough Digoxin Crossmatch 10/17/19 10/17/19 10/17/19 04:08 04:08 05:41 WBC 22.3 H RBC 3.35 L Hgb 10.0 L Hct 31.2 L D MCHC RDW 16.1 H Plt Count Lymph % (Auto) [place] % (Auto) Lymph # [place] # Seg Neutrophils % Seg Neuts % (Manual) Lymphocytes % (Manual) Seg Neutrophils # Seg Neutrophils # Man Lymphocytes # (Manual) Monocytes # (Manual) POC ABG pH 7.310 L ABG pH POC ABG pCO2 52.8 H POC ABG pO2 70 L ABG pO2 ABG HCO3 ABG Base Excess ABG Hemoglobin Oxyhemoglobin Sodium 147 H Potassium Chloride 114.9 H Carbon Dioxide BUN 36 H Creatinine Glucose 165 H POC Glucose Calcium 6.9 L Phosphorus 2.20 L D Magnesium Direct Bilirubin AST Alkaline Phosphatase C-Reactive Protein Serum Total Protein Total Protein Albumin Prealbumin Skubu-1-Vjsvuxtfh Uqucl-9-Pejynpowi Gamma Globulins PEP Interpretation Triglycerides Urine pH Urine Creatinine Urine Total Protein Vancomycin Trough Digoxin Crossmatch 10/17/19 10/17/19 10/17/19 05:42 11:33 18:17 WBC RBC Hgb Hct MCHC RDW Plt Count Lymph % (Auto) [place] % (Auto) Lymph # [place] # Seg Neutrophils % Seg Neuts % (Manual) Lymphocytes % (Manual) Seg Neutrophils # Seg Neutrophils # Man Lymphocytes # (Manual) Monocytes # (Manual) POC ABG pH ABG pH POC ABG pCO2 POC ABG pO2 ABG pO2 ABG HCO3 ABG Base Excess ABG Hemoglobin Oxyhemoglobin Sodium Potassium Chloride Carbon Dioxide BUN Creatinine Glucose POC Glucose 149 H 154 H 163 H Calcium Phosphorus Magnesium Direct Bilirubin AST Alkaline Phosphatase C-Reactive Protein Serum Total Protein Total Protein Albumin Prealbumin Ljmbe-2-Ghbvnuqus Dyngr-4-Bxhojutjw Gamma Globulins PEP Interpretation Triglycerides Urine pH Urine Creatinine Urine Total Protein Vancomycin Trough Digoxin Crossmatch 10/17/19 10/18/19 10/18/19 23:34 03:29 04:50 WBC RBC Hgb Hct MCHC RDW Plt Count Lymph % (Auto) [place] % (Auto) Lymph # [place] # Seg Neutrophils % Seg Neuts % (Manual) Lymphocytes % (Manual) Seg Neutrophils # Seg Neutrophils # Man Lymphocytes # (Manual) Monocytes # (Manual) POC ABG pH ABG pH POC ABG pCO2 POC ABG pO2 ABG pO2 78.8 L ABG HCO3 ABG Base Excess ABG Hemoglobin 8.8 L Oxyhemoglobin Sodium Potassium Chloride 111.8 H Carbon Dioxide BUN 27 H Creatinine 0.6 L Glucose 140 H POC Glucose 135 H Calcium 7.1 L Phosphorus 1.80 L Magnesium Direct Bilirubin AST Alkaline Phosphatase C-Reactive Protein Serum Total Protein Total Protein Albumin Prealbumin Faiuo-9-Xxovefalp Refxr-6-Kqykopoys Gamma Globulins PEP Interpretation Triglycerides Urine pH Urine Creatinine Urine Total Protein Vancomycin Trough Digoxin Crossmatch 10/18/19 10/18/19 10/18/19 05:45 11:19 18:26 WBC RBC Hgb Hct MCHC RDW Plt Count Lymph % (Auto) [place] % (Auto) Lymph # [place] # Seg Neutrophils % Seg Neuts % (Manual) Lymphocytes % (Manual) Seg Neutrophils # Seg Neutrophils # Man Lymphocytes # (Manual) Monocytes # (Manual) POC ABG pH ABG pH POC ABG pCO2 POC ABG pO2 ABG pO2 ABG HCO3 ABG Base Excess ABG Hemoglobin Oxyhemoglobin Sodium Potassium Chloride Carbon Dioxide BUN Creatinine Glucose POC Glucose 145 H 152 H 125 H Calcium Phosphorus Magnesium Direct Bilirubin AST Alkaline Phosphatase C-Reactive Protein Serum Total Protein Total Protein Albumin Prealbumin Uxchg-5-Zuqywolah Efqjb-6-Mplnihlua Gamma Globulins PEP Interpretation Triglycerides Urine pH Urine Creatinine Urine Total Protein Vancomycin Trough Digoxin Crossmatch 10/18/19 10/19/19 10/19/19 23:27 04:21 04:21 WBC RBC Hgb Hct MCHC RDW Plt Count Lymph % (Auto) [place] % (Auto) Lymph # [place] # Seg Neutrophils % Seg Neuts % (Manual) Lymphocytes % (Manual) Seg Neutrophils # Seg Neutrophils # Man Lymphocytes # (Manual) Monocytes # (Manual) POC ABG pH ABG pH POC ABG pCO2 POC ABG pO2 ABG pO2 ABG HCO3 ABG Base Excess ABG Hemoglobin Oxyhemoglobin Sodium Potassium Chloride 108.4 H Carbon Dioxide BUN 22 H Creatinine 0.5 L Glucose 123 H POC Glucose 127 H Calcium 7.4 L Phosphorus 1.80 L Magnesium Direct Bilirubin AST Alkaline Phosphatase C-Reactive Protein Serum Total Protein Total Protein Albumin Prealbumin Vulvh-3-Llxfclcst Ypnmj-8-Mmmtsokzf Gamma Globulins PEP Interpretation Triglycerides Urine pH Urine Creatinine Urine Total Protein Vancomycin Trough Digoxin 0.7 L Crossmatch 10/19/19 10/19/19 10/19/19 05:00 05:35 11:26 WBC RBC Hgb Hct MCHC RDW Plt Count Lymph % (Auto) [place] % (Auto) Lymph # [place] # Seg Neutrophils % Seg Neuts % (Manual) Lymphocytes % (Manual) Seg Neutrophils # Seg Neutrophils # Man Lymphocytes # (Manual) Monocytes # (Manual) POC ABG pH ABG pH 7.456 H POC ABG pCO2 POC ABG pO2 ABG pO2 78.8 L ABG HCO3 ABG Base Excess ABG Hemoglobin 5.6 L Oxyhemoglobin Sodium Potassium Chloride Carbon Dioxide BUN Creatinine Glucose POC Glucose 124 H 111 H Calcium Phosphorus Magnesium Direct Bilirubin AST Alkaline Phosphatase C-Reactive Protein Serum Total Protein Total Protein Albumin Prealbumin Kohva-0-Yytgspixg Nyqxq-0-Kudovhitv Gamma Globulins PEP Interpretation Triglycerides Urine pH Urine Creatinine Urine Total Protein Vancomycin Trough Digoxin Crossmatch 10/19/19 10/20/19 10/20/19 23:23 04:50 05:17 WBC RBC Hgb Hct MCHC RDW Plt Count Lymph % (Auto) [place] % (Auto) Lymph # [place] # Seg Neutrophils % Seg Neuts % (Manual) Lymphocytes % (Manual) Seg Neutrophils # Seg Neutrophils # Man Lymphocytes # (Manual) Monocytes # (Manual) POC ABG pH ABG pH POC ABG pCO2 POC ABG pO2 ABG pO2 ABG HCO3 ABG Base Excess ABG Hemoglobin Oxyhemoglobin Sodium Potassium Chloride 108.1 H Carbon Dioxide BUN Creatinine 0.4 L Glucose 134 H POC Glucose 129 H 123 H Calcium 7.1 L Phosphorus Magnesium Direct Bilirubin AST Alkaline Phosphatase C-Reactive Protein Serum Total Protein Total Protein Albumin Prealbumin Obkys-1-Dqelegjzt Oarvq-7-Hqrreroby Gamma Globulins PEP Interpretation Triglycerides Urine pH Urine Creatinine Urine Total Protein Vancomycin Trough Digoxin Crossmatch 10/20/19 10/20/19 10/21/19 11:40 19:06 05:08 WBC RBC Hgb Hct MCHC RDW Plt Count Lymph % (Auto) [place] % (Auto) Lymph # [place] # Seg Neutrophils % Seg Neuts % (Manual) Lymphocytes % (Manual) Seg Neutrophils # Seg Neutrophils # Man Lymphocytes # (Manual) Monocytes # (Manual) POC ABG pH ABG pH POC ABG pCO2 POC ABG pO2 ABG pO2 ABG HCO3 ABG Base Excess ABG Hemoglobin Oxyhemoglobin Sodium Potassium Chloride Carbon Dioxide BUN Creatinine Glucose POC Glucose 139 H 117 H 131 H Calcium Phosphorus Magnesium Direct Bilirubin AST Alkaline Phosphatase C-Reactive Protein Serum Total Protein Total Protein Albumin Prealbumin Upizk-3-Bbvxxjsrx Lgsox-3-Clvhxkfqn Gamma Globulins PEP Interpretation Triglycerides Urine pH Urine Creatinine Urine Total Protein Vancomycin Trough Digoxin Crossmatch 10/21/19 10/21/19 10/21/19 05:30 12:04 17:31 WBC RBC Hgb Hct MCHC RDW Plt Count Lymph % (Auto) [place] % (Auto) Lymph # [place] # Seg Neutrophils % Seg Neuts % (Manual) Lymphocytes % (Manual) Seg Neutrophils # Seg Neutrophils # Man Lymphocytes # (Manual) Monocytes # (Manual) POC ABG pH ABG pH POC ABG pCO2 POC ABG pO2 ABG pO2 ABG HCO3 ABG Base Excess ABG Hemoglobin Oxyhemoglobin Sodium Potassium Chloride 107.8 H Carbon Dioxide BUN Creatinine 0.5 L Glucose 119 H POC Glucose 119 H 110 H Calcium 7.6 L Phosphorus Magnesium Direct Bilirubin AST Alkaline Phosphatase C-Reactive Protein Serum Total Protein Total Protein Albumin Prealbumin Hqxsx-1-Wpbbcibbd Wqqpt-6-Hontwiznq Gamma Globulins PEP Interpretation Triglycerides Urine pH Urine Creatinine Urine Total Protein Vancomycin Trough Digoxin Crossmatch 10/22/19 10/22/19 10/22/19 05:14 05:37 12:07 WBC RBC Hgb Hct MCHC RDW Plt Count Lymph % (Auto) [place] % (Auto) Lymph # [place] # Seg Neutrophils % Seg Neuts % (Manual) Lymphocytes % (Manual) Seg Neutrophils # Seg Neutrophils # Man Lymphocytes # (Manual) Monocytes # (Manual) POC ABG pH ABG pH POC ABG pCO2 POC ABG pO2 ABG pO2 ABG HCO3 ABG Base Excess ABG Hemoglobin Oxyhemoglobin Sodium Potassium Chloride Carbon Dioxide BUN Creatinine 0.5 L Glucose 116 H POC Glucose 110 H 126 H Calcium 7.7 L Phosphorus Magnesium Direct Bilirubin AST Alkaline Phosphatase C-Reactive Protein Serum Total Protein Total Protein Albumin Prealbumin Hpmfm-4-Djuoqnbbn Iiufu-4-Wxyptiduc Gamma Globulins PEP Interpretation Triglycerides Urine pH Urine Creatinine Urine Total Protein Vancomycin Trough Digoxin Crossmatch 10/22/19 10/22/19 10/23/19 18:36 23:19 04:39 WBC RBC Hgb Hct MCHC RDW Plt Count Lymph % (Auto) [place] % (Auto) Lymph # [place] # Seg Neutrophils % Seg Neuts % (Manual) Lymphocytes % (Manual) Seg Neutrophils # Seg Neutrophils # Man Lymphocytes # (Manual) Monocytes # (Manual) POC ABG pH ABG pH POC ABG pCO2 POC ABG pO2 ABG pO2 ABG HCO3 ABG Base Excess ABG Hemoglobin Oxyhemoglobin Sodium Potassium Chloride Carbon Dioxide BUN Creatinine Glucose POC Glucose 120 H 127 H 112 H Calcium Phosphorus Magnesium Direct Bilirubin AST Alkaline Phosphatase C-Reactive Protein Serum Total Protein Total Protein Albumin Prealbumin Moujg-5-Amikruqkn Jnija-8-Jwtfmnsyd Gamma Globulins PEP Interpretation Triglycerides Urine pH Urine Creatinine Urine Total Protein Vancomycin Trough Digoxin Crossmatch 10/23/19 10/23/19 10/23/19 04:47 05:15 10:44 WBC 18.3 H RBC 2.33 L Hgb 7.0 L Hct 21.5 L MCHC RDW 16.2 H Plt Count Lymph % (Auto) 4.9 L [place] % (Auto) 8.1 H Lymph # 0.9 L [place] # 1.5 H Seg Neutrophils % 86.7 H Seg Neuts % (Manual) Lymphocytes % (Manual) Seg Neutrophils # 15.9 H Seg Neutrophils # Man Lymphocytes # (Manual) Monocytes # (Manual) POC ABG pH ABG pH POC ABG pCO2 POC ABG pO2 ABG pO2 68.9 L ABG HCO3 28.7 H ABG Base Excess 3.4 H ABG Hemoglobin 6.6 L Oxyhemoglobin 94.1 L Sodium Potassium Chloride Carbon Dioxide BUN Creatinine 0.5 L Glucose 165 H POC Glucose Calcium 7.4 L Phosphorus Magnesium Direct Bilirubin AST Alkaline Phosphatase C-Reactive Protein Serum Total Protein Total Protein Albumin Prealbumin Yrnts-8-Btouxniub Wakmy-7-Vnebovmwg Gamma Globulins PEP Interpretation Triglycerides Urine pH Urine Creatinine Urine Total Protein Vancomycin Trough Digoxin Crossmatch 10/23/19 10/23/19 10/23/19 10:44 11:46 11:50 WBC RBC Hgb Hct MCHC RDW Plt Count Lymph % (Auto) [place] % (Auto) Lymph # [place] # Seg Neutrophils % Seg Neuts % (Manual) Lymphocytes % (Manual) Seg Neutrophils # Seg Neutrophils # Man Lymphocytes # (Manual) Monocytes # (Manual) POC ABG pH ABG pH POC ABG pCO2 POC ABG pO2 ABG pO2 ABG HCO3 ABG Base Excess ABG Hemoglobin Oxyhemoglobin Sodium Potassium Chloride Carbon Dioxide BUN Creatinine Glucose POC Glucose 138 H Calcium Phosphorus Magnesium Direct Bilirubin 0.7 H AST Alkaline Phosphatase C-Reactive Protein Serum Total Protein Total Protein 4.5 L Albumin 1.2 L Prealbumin Enhxd-3-Ouymspojw Klwes-6-Gosptcjrj Gamma Globulins PEP Interpretation Triglycerides Urine pH Urine Creatinine Urine Total Protein Vancomycin Trough Digoxin Crossmatch See Detail 10/23/19 10/24/19 10/24/19 17:53 00:07 05:05 WBC RBC Hgb Hct MCHC RDW Plt Count Lymph % (Auto) [place] % (Auto) Lymph # [place] # Seg Neutrophils % Seg Neuts % (Manual) Lymphocytes % (Manual) Seg Neutrophils # Seg Neutrophils # Man Lymphocytes # (Manual) Monocytes # (Manual) POC ABG pH ABG pH POC ABG pCO2 POC ABG pO2 ABG pO2 ABG HCO3 ABG Base Excess ABG Hemoglobin Oxyhemoglobin Sodium Potassium 3.5 L Chloride Carbon Dioxide BUN Creatinine 0.5 L Glucose 116 H POC Glucose 137 H 110 H Calcium 8.0 L Phosphorus Magnesium Direct Bilirubin AST Alkaline Phosphatase C-Reactive Protein Serum Total Protein Total Protein Albumin Prealbumin Wgrsj-9-Ywelvadwk Rwsmc-0-Uvnlczwki Gamma Globulins PEP Interpretation Triglycerides Urine pH Urine Creatinine Urine Total Protein Vancomycin Trough Digoxin Crossmatch 10/24/19 10/24/19 10/24/19 05:05 11:56 13:00 WBC 13.0 H RBC 2.73 L Hgb 8.0 L Hct 24.2 L MCHC RDW 17.9 H Plt Count Lymph % (Auto) 7.0 L [place] % (Auto) 9.5 H Lymph # 0.9 L [place] # 1.2 H Seg Neutrophils % 82.7 H Seg Neuts % (Manual) Lymphocytes % (Manual) Seg Neutrophils # 10.7 H Seg Neutrophils # Man Lymphocytes # (Manual) Monocytes # (Manual) POC ABG pH ABG pH POC ABG pCO2 POC ABG pO2 ABG pO2 ABG HCO3 ABG Base Excess ABG Hemoglobin Oxyhemoglobin Sodium Potassium Chloride Carbon Dioxide BUN Creatinine Glucose POC Glucose 159 H Calcium Phosphorus Magnesium Direct Bilirubin AST Alkaline Phosphatase C-Reactive Protein Serum Total Protein Total Protein Albumin Prealbumin Fpgts-0-Hzxdnisvt Ynjuy-9-Rpuriabay Gamma Globulins PEP Interpretation Triglycerides 216 H Urine pH Urine Creatinine Urine Total Protein Vancomycin Trough Digoxin Crossmatch 10/24/19 10/24/19 10/25/19 17:42 23:45 04:19 WBC RBC Hgb Hct MCHC RDW Plt Count Lymph % (Auto) [place] % (Auto) Lymph # [place] # Seg Neutrophils % Seg Neuts % (Manual) Lymphocytes % (Manual) Seg Neutrophils # Seg Neutrophils # Man Lymphocytes # (Manual) Monocytes # (Manual) POC ABG pH ABG pH POC ABG pCO2 POC ABG pO2 ABG pO2 ABG HCO3 ABG Base Excess ABG Hemoglobin Oxyhemoglobin Sodium 147 H Potassium Chloride Carbon Dioxide 33 H BUN Creatinine 0.5 L Glucose 111 H POC Glucose 120 H 116 H Calcium Phosphorus Magnesium Direct Bilirubin AST Alkaline Phosphatase C-Reactive Protein Serum Total Protein Total Protein 5.7 L D Albumin 2.5 L Prealbumin Haktc-0-Ltzauewpl Cbzne-0-Jfcduiyjs Gamma Globulins PEP Interpretation Triglycerides 230 H Urine pH Urine Creatinine Urine Total Protein Vancomycin Trough Digoxin Crossmatch 10/25/19 10/25/19 10/25/19 04:19 05:31 12:20 WBC RBC 2.69 L Hgb 8.1 L Hct 23.9 L MCHC RDW 17.3 H Plt Count Lymph % (Auto) [place] % (Auto) Lymph # [place] # Seg Neutrophils % Seg Neuts % (Manual) Lymphocytes % (Manual) Seg Neutrophils # Seg Neutrophils # Man Lymphocytes # (Manual) Monocytes # (Manual) POC ABG pH ABG pH POC ABG pCO2 POC ABG pO2 ABG pO2 ABG HCO3 ABG Base Excess ABG Hemoglobin Oxyhemoglobin Sodium Potassium Chloride Carbon Dioxide BUN Creatinine Glucose POC Glucose 126 H 114 H Calcium Phosphorus Magnesium Direct Bilirubin AST Alkaline Phosphatase C-Reactive Protein Serum Total Protein Total Protein Albumin Prealbumin Vntez-6-Tkznflsbs Wiziq-9-Libglwdze Gamma Globulins PEP Interpretation Triglycerides Urine pH Urine Creatinine Urine Total Protein Vancomycin Trough Digoxin Crossmatch 10/25/19 10/25/19 10/26/19 18:30 23:09 06:15 WBC RBC Hgb Hct MCHC RDW Plt Count Lymph % (Auto) [place] % (Auto) Lymph # [place] # Seg Neutrophils % Seg Neuts % (Manual) Lymphocytes % (Manual) Seg Neutrophils # Seg Neutrophils # Man Lymphocytes # (Manual) Monocytes # (Manual) POC ABG pH ABG pH POC ABG pCO2 POC ABG pO2 ABG pO2 ABG HCO3 ABG Base Excess ABG Hemoglobin Oxyhemoglobin Sodium Potassium 3.5 L Chloride Carbon Dioxide BUN Creatinine 0.5 L Glucose 112 H POC Glucose 121 H 107 H Calcium 8.3 L Phosphorus Magnesium Direct Bilirubin AST Alkaline Phosphatase 148 H C-Reactive Protein Serum Total Protein Total Protein 5.9 L Albumin 2.4 L Prealbumin Znpxt-9-Rpgwmrpyy Pycdz-2-Iahecojnj Gamma Globulins PEP Interpretation Triglycerides Urine pH Urine Creatinine Urine Total Protein Vancomycin Trough Digoxin Crossmatch 10/26/19 10/26/19 10/26/19 06:15 12:21 17:35 WBC RBC Hgb Hct MCHC RDW Plt Count Lymph % (Auto) [place] % (Auto) Lymph # [place] # Seg Neutrophils % Seg Neuts % (Manual) Lymphocytes % (Manual) Seg Neutrophils # Seg Neutrophils # Man Lymphocytes # (Manual) Monocytes # (Manual) POC ABG pH ABG pH POC ABG pCO2 POC ABG pO2 ABG pO2 ABG HCO3 ABG Base Excess ABG Hemoglobin Oxyhemoglobin Sodium Potassium Chloride Carbon Dioxide BUN Creatinine Glucose POC Glucose 134 H 141 H Calcium Phosphorus Magnesium Direct Bilirubin AST Alkaline Phosphatase C-Reactive Protein Serum Total Protein Total Protein Albumin Prealbumin Velpe-2-Ttpfvnmjd Wsuwf-5-Nledsyajz Gamma Globulins PEP Interpretation Triglycerides 185 H Urine pH Urine Creatinine Urine Total Protein Vancomycin Trough Digoxin Crossmatch 10/26/19 10/27/19 10/27/19 Unknown 04:30 11:33 WBC RBC Hgb Hct MCHC RDW Plt Count Lymph % (Auto) [place] % (Auto) Lymph # [place] # Seg Neutrophils % Seg Neuts % (Manual) Lymphocytes % (Manual) Seg Neutrophils # Seg Neutrophils # Man Lymphocytes # (Manual) Monocytes # (Manual) POC ABG pH ABG pH POC ABG pCO2 POC ABG pO2 ABG pO2 ABG HCO3 ABG Base Excess ABG Hemoglobin Oxyhemoglobin Sodium Potassium 3.2 L Chloride Carbon Dioxide BUN 23 H Creatinine 0.6 L Glucose 130 H POC Glucose 131 H Calcium 7.9 L Phosphorus Magnesium Direct Bilirubin AST Alkaline Phosphatase C-Reactive Protein Serum Total Protein Total Protein Albumin Prealbumin Rpkjy-1-Qsrrdmkpe Wiwyt-5-Hvbbqrhow Gamma Globulins PEP Interpretation Triglycerides Urine pH 9.0 H Urine Creatinine Urine Total Protein Vancomycin Trough Digoxin Crossmatch 10/27/19 10/28/19 10/28/19 17:45 05:25 05:49 WBC RBC 2.85 L Hgb 8.3 L Hct 26.8 L MCHC 31 L RDW 17.4 H Plt Count Lymph % (Auto) 8.9 L [place] % (Auto) 14.3 H Lymph # 0.8 L [place] # 1.3 H Seg Neutrophils % 76.5 H Seg Neuts % (Manual) Lymphocytes % (Manual) Seg Neutrophils # Seg Neutrophils # Man Lymphocytes # (Manual) Monocytes # (Manual) POC ABG pH ABG pH POC ABG pCO2 POC ABG pO2 ABG pO2 ABG HCO3 ABG Base Excess ABG Hemoglobin Oxyhemoglobin Sodium Potassium Chloride Carbon Dioxide BUN Creatinine Glucose POC Glucose 121 H 120 H Calcium Phosphorus Magnesium Direct Bilirubin AST Alkaline Phosphatase C-Reactive Protein Serum Total Protein Total Protein Albumin Prealbumin Kbiem-2-Hspzcsnpj Ktgyb-5-Yqoltnstj Gamma Globulins PEP Interpretation Triglycerides Urine pH Urine Creatinine Urine Total Protein Vancomycin Trough Digoxin Crossmatch 10/28/19 10/28/19 10/28/19 07:19 12:07 18:21 WBC RBC Hgb Hct MCHC RDW Plt Count Lymph % (Auto) [place] % (Auto) Lymph # [place] # Seg Neutrophils % Seg Neuts % (Manual) Lymphocytes % (Manual) Seg Neutrophils # Seg Neutrophils # Man Lymphocytes # (Manual) Monocytes # (Manual) POC ABG pH ABG pH POC ABG pCO2 POC ABG pO2 ABG pO2 ABG HCO3 ABG Base Excess ABG Hemoglobin Oxyhemoglobin Sodium Potassium Chloride Carbon Dioxide BUN 23 H Creatinine 0.5 L Glucose 129 H POC Glucose 127 H 130 H Calcium 8.0 L Phosphorus Magnesium Direct Bilirubin AST Alkaline Phosphatase C-Reactive Protein Serum Total Protein Total Protein Albumin Prealbumin Ojozl-9-Gaurjrijy Mclyh-3-Bknslibcr Gamma Globulins PEP Interpretation Triglycerides Urine pH Urine Creatinine Urine Total Protein Vancomycin Trough Digoxin Crossmatch 10/28/19 10/29/19 10/29/19 23:30 05:30 05:30 WBC 11.2 H RBC 3.36 L Hgb 9.7 L Hct 29.4 L MCHC RDW 16.7 H Plt Count Lymph % (Auto) [place] % (Auto) 16.0 H Lymph # [place] # 1.8 H Seg Neutrophils % 70.2 H Seg Neuts % (Manual) Lymphocytes % (Manual) Seg Neutrophils # 7.9 H Seg Neutrophils # Man Lymphocytes # (Manual) Monocytes # (Manual) POC ABG pH ABG pH POC ABG pCO2 POC ABG pO2 ABG pO2 ABG HCO3 ABG Base Excess ABG Hemoglobin Oxyhemoglobin Sodium Potassium Chloride Carbon Dioxide BUN 23 H Creatinine 0.5 L Glucose POC Glucose 130 H Calcium 8.3 L Phosphorus Magnesium Direct Bilirubin AST Alkaline Phosphatase C-Reactive Protein Serum Total Protein Total Protein Albumin Prealbumin Ylcfy-6-Ivpvoblof Rhxpc-0-Jbfnfyfkq Gamma Globulins PEP Interpretation Triglycerides Urine pH Urine Creatinine Urine Total Protein Vancomycin Trough Digoxin Crossmatch 10/29/19 10/29/19 10/29/19 05:52 13:10 18:02 WBC RBC Hgb Hct MCHC RDW Plt Count Lymph % (Auto) [place] % (Auto) Lymph # [place] # Seg Neutrophils % Seg Neuts % (Manual) Lymphocytes % (Manual) Seg Neutrophils # Seg Neutrophils # Man Lymphocytes # (Manual) Monocytes # (Manual) POC ABG pH ABG pH POC ABG pCO2 POC ABG pO2 ABG pO2 ABG HCO3 ABG Base Excess ABG Hemoglobin Oxyhemoglobin Sodium Potassium Chloride Carbon Dioxide BUN Creatinine Glucose POC Glucose 111 H 140 H 140 H Calcium Phosphorus Magnesium Direct Bilirubin AST Alkaline Phosphatase C-Reactive Protein Serum Total Protein Total Protein Albumin Prealbumin Fyxaj-7-Hbrnjgmse Gvslu-4-Pfakwwgrm Gamma Globulins PEP Interpretation Triglycerides Urine pH Urine Creatinine Urine Total Protein Vancomycin Trough Digoxin Crossmatch 10/29/19 10/30/19 10/30/19 23:58 01:05 05:15 WBC RBC Hgb Hct MCHC RDW Plt Count Lymph % (Auto) [place] % (Auto) Lymph # [place] # Seg Neutrophils % Seg Neuts % (Manual) Lymphocytes % (Manual) Seg Neutrophils # Seg Neutrophils # Man Lymphocytes # (Manual) Monocytes # (Manual) POC ABG pH ABG pH POC ABG pCO2 62.0 H POC ABG pO2 168 H ABG pO2 ABG HCO3 ABG Base Excess ABG Hemoglobin Oxyhemoglobin Sodium 147 H Potassium Chloride 107.8 H Carbon Dioxide BUN 26 H Creatinine 0.5 L Glucose 139 H POC Glucose 161 H Calcium Phosphorus Magnesium 2.40 H Direct Bilirubin AST Alkaline Phosphatase C-Reactive Protein Serum Total Protein Total Protein Albumin Prealbumin Xzsfn-3-Abadnbfnk Aledu-6-Cpfhqoahi Gamma Globulins PEP Interpretation Triglycerides Urine pH Urine Creatinine Urine Total Protein Vancomycin Trough Digoxin Crossmatch 10/30/19 10/30/19 10/30/19 05:15 06:32 09:44 WBC 13.8 H RBC 3.59 L Hgb 10.1 L Hct 32.4 L MCHC 31 L RDW 17.4 H Plt Count Lymph % (Auto) 11.2 L [place] % (Auto) 13.6 H Lymph # [place] # 1.9 H Seg Neutrophils % 75.1 H Seg Neuts % (Manual) Lymphocytes % (Manual) Seg Neutrophils # 10.4 H Seg Neutrophils # Man Lymphocytes # (Manual) Monocytes # (Manual) POC ABG pH ABG pH POC ABG pCO2 51.7 H POC ABG pO2 111 H ABG pO2 ABG HCO3 ABG Base Excess ABG Hemoglobin Oxyhemoglobin Sodium Potassium Chloride Carbon Dioxide BUN Creatinine Glucose POC Glucose 141 H Calcium Phosphorus Magnesium Direct Bilirubin AST Alkaline Phosphatase C-Reactive Protein Serum Total Protein Total Protein Albumin Prealbumin Iyqau-8-Wgxcakoys Tyntg-3-Ofnegxwcr Gamma Globulins PEP Interpretation Triglycerides Urine pH Urine Creatinine Urine Total Protein Vancomycin Trough Digoxin Crossmatch 10/30/19 10/31/19 10/31/19 18:10 04:18 04:18 WBC 11.7 H RBC 3.11 L Hgb 9.0 L Hct 27.9 L MCHC RDW 17.1 H Plt Count Lymph % (Auto) [place] % (Auto) Lymph # [place] # Seg Neutrophils % Seg Neuts % (Manual) Lymphocytes % (Manual) Seg Neutrophils # Seg Neutrophils # Man Lymphocytes # (Manual) Monocytes # (Manual) POC ABG pH ABG pH POC ABG pCO2 POC ABG pO2 ABG pO2 ABG HCO3 ABG Base Excess ABG Hemoglobin Oxyhemoglobin Sodium 148 H Potassium Chloride 108.7 H Carbon Dioxide BUN 37 H Creatinine 0.7 L Glucose 102 H POC Glucose 131 H Calcium Phosphorus Magnesium Direct Bilirubin AST Alkaline Phosphatase C-Reactive Protein Serum Total Protein Total Protein Albumin Prealbumin Jhpha-5-Wdmqfnzzj Wffoe-5-Gvfhuktgl Gamma Globulins PEP Interpretation Triglycerides Urine pH Urine Creatinine Urine Total Protein Vancomycin Trough Digoxin Crossmatch 10/31/19 10/31/19 10/31/19 11:32 12:55 18:10 WBC RBC Hgb Hct MCHC RDW Plt Count Lymph % (Auto) [place] % (Auto) Lymph # [place] # Seg Neutrophils % Seg Neuts % (Manual) Lymphocytes % (Manual) Seg Neutrophils # Seg Neutrophils # Man Lymphocytes # (Manual) Monocytes # (Manual) POC ABG pH ABG pH POC ABG pCO2 57.9 H POC ABG pO2 135 H ABG pO2 ABG HCO3 ABG Base Excess ABG Hemoglobin Oxyhemoglobin Sodium Potassium Chloride Carbon Dioxide BUN Creatinine Glucose POC Glucose 120 H Calcium Phosphorus Magnesium Direct Bilirubin AST Alkaline Phosphatase C-Reactive Protein Serum Total Protein Total Protein Albumin Prealbumin Xkuaa-9-Thzsgganp Hrcbb-9-Nkdfgwuqx Gamma Globulins PEP Interpretation Triglycerides Urine pH Urine Creatinine Urine Total Protein Vancomycin Trough 41.7 H Digoxin Crossmatch 10/31/19 11/01/19 11/01/19 23:08 05:30 05:30 WBC 14.6 H RBC 3.13 L Hgb 8.9 L Hct 27.7 L MCHC RDW 17.0 H Plt Count Lymph % (Auto) [place] % (Auto) Lymph # [place] # Seg Neutrophils % Seg Neuts % (Manual) Lymphocytes % (Manual) Seg Neutrophils # Seg Neutrophils # Man Lymphocytes # (Manual) Monocytes # (Manual) POC ABG pH ABG pH POC ABG pCO2 POC ABG pO2 ABG pO2 ABG HCO3 ABG Base Excess ABG Hemoglobin Oxyhemoglobin Sodium 149 H Potassium Chloride 109.0 H Carbon Dioxide BUN 26 H Creatinine 0.7 L Glucose 129 H POC Glucose 109 H Calcium Phosphorus Magnesium Direct Bilirubin AST Alkaline Phosphatase C-Reactive Protein Serum Total Protein Total Protein Albumin Prealbumin Eyxqm-7-Xyhsuxafp Wjwbu-0-Eptsiidlt Gamma Globulins PEP Interpretation Triglycerides Urine pH Urine Creatinine Urine Total Protein Vancomycin Trough Digoxin Crossmatch 12/19/19 12/19/19 12/19/19 06:09 06:10 11:52 WBC RBC Hgb Hct MCHC RDW Plt Count Lymph % (Auto) [place] % (Auto) Lymph # [place] # Seg Neutrophils % Seg Neuts % (Manual) Lymphocytes % (Manual) Seg Neutrophils # Seg Neutrophils # Man Lymphocytes # (Manual) Monocytes # (Manual) POC ABG pH ABG pH POC ABG pCO2 51.3 H POC ABG pO2 71 L ABG pO2 ABG HCO3 ABG Base Excess ABG Hemoglobin Oxyhemoglobin Sodium Potassium Chloride Carbon Dioxide BUN Creatinine Glucose POC Glucose 113 H 106 H Calcium Phosphorus Magnesium Direct Bilirubin AST Alkaline Phosphatase C-Reactive Protein Serum Total Protein Total Protein Albumin Prealbumin Izdia-3-Nwibdgolt Ozrub-3-Rpjcjbutd Gamma Globulins PEP Interpretation Triglycerides Urine pH Urine Creatinine Urine Total Protein Vancomycin Trough Digoxin Crossmatch 11/01/19 11/02/19 11/02/19 18:18 03:40 03:40 WBC RBC 2.36 L Hgb 7.2 L Hct 20.8 L D MCHC 35 H RDW 16.8 H Plt Count Lymph % (Auto) [place] % (Auto) Lymph # [place] # Seg Neutrophils % Seg Neuts % (Manual) Lymphocytes % (Manual) Seg Neutrophils # Seg Neutrophils # Man Lymphocytes # (Manual) Monocytes # (Manual) POC ABG pH ABG pH POC ABG pCO2 POC ABG pO2 ABG pO2 ABG HCO3 ABG Base Excess ABG Hemoglobin Oxyhemoglobin Sodium 157 H D Potassium 3.0 L D Chloride 117.2 H Carbon Dioxide BUN 23 H Creatinine 0.6 L Glucose 101 H POC Glucose 120 H Calcium 6.4 L D Phosphorus Magnesium Direct Bilirubin AST Alkaline Phosphatase C-Reactive Protein Serum Total Protein Total Protein Albumin Prealbumin Ssbvn-3-Aokmqbgaf Lnrce-0-Acvdpzyuo Gamma Globulins PEP Interpretation Triglycerides Urine pH Urine Creatinine Urine Total Protein Vancomycin Trough Digoxin Crossmatch 11/02/19 11/02/19 11/02/19 04:48 05:30 12:43 WBC RBC Hgb Hct MCHC RDW Plt Count Lymph % (Auto) [place] % (Auto) Lymph # [place] # Seg Neutrophils % Seg Neuts % (Manual) Lymphocytes % (Manual) Seg Neutrophils # Seg Neutrophils # Man Lymphocytes # (Manual) Monocytes # (Manual) POC ABG pH ABG pH POC ABG pCO2 50.1 H POC ABG pO2 74 L ABG pO2 ABG HCO3 ABG Base Excess ABG Hemoglobin Oxyhemoglobin Sodium 149 H D Potassium Chloride 110.0 H Carbon Dioxide BUN 23 H Creatinine 0.6 L Glucose POC Glucose 109 H Calcium 8.1 L D Phosphorus Magnesium 2.40 H Direct Bilirubin AST Alkaline Phosphatase C-Reactive Protein Serum Total Protein Total Protein Albumin Prealbumin Mpstq-9-Hiouydvxe Xsxed-4-Wahkkcohc Gamma Globulins PEP Interpretation Triglycerides Urine pH Urine Creatinine Urine Total Protein Vancomycin Trough Digoxin Crossmatch 11/03/19 11/03/19 11/03/19 03:42 03:42 04:13 WBC RBC 2.93 L Hgb 8.5 L Hct 25.8 L MCHC RDW 16.9 H Plt Count Lymph % (Auto) [place] % (Auto) Lymph # [place] # Seg Neutrophils % Seg Neuts % (Manual) Lymphocytes % (Manual) Seg Neutrophils # Seg Neutrophils # Man Lymphocytes # (Manual) Monocytes # (Manual) POC ABG pH 7.540 H ABG pH POC ABG pCO2 POC ABG pO2 51 L ABG pO2 ABG HCO3 ABG Base Excess ABG Hemoglobin Oxyhemoglobin Sodium 147 H Potassium 3.5 L D Chloride 108.6 H Carbon Dioxide BUN Creatinine 0.6 L Glucose 109 H POC Glucose Calcium 8.3 L Phosphorus Magnesium Direct Bilirubin AST Alkaline Phosphatase C-Reactive Protein Serum Total Protein Total Protein Albumin Prealbumin Xjriz-7-Jgnlcgaqs Nqvhq-8-Blkkgpcle Gamma Globulins PEP Interpretation Triglycerides Urine pH Urine Creatinine Urine Total Protein Vancomycin Trough Digoxin Crossmatch 11/03/19 11/03/19 11/03/19 04:28 12:04 23:02 WBC RBC Hgb Hct MCHC RDW Plt Count Lymph % (Auto) [place] % (Auto) Lymph # [place] # Seg Neutrophils % Seg Neuts % (Manual) Lymphocytes % (Manual) Seg Neutrophils # Seg Neutrophils # Man Lymphocytes # (Manual) Monocytes # (Manual) POC ABG pH ABG pH POC ABG pCO2 45.4 H POC ABG pO2 ABG pO2 ABG HCO3 ABG Base Excess ABG Hemoglobin Oxyhemoglobin Sodium Potassium Chloride Carbon Dioxide BUN Creatinine Glucose POC Glucose 109 H 111 H Calcium Phosphorus Magnesium Direct Bilirubin AST Alkaline Phosphatase C-Reactive Protein Serum Total Protein Total Protein Albumin Prealbumin Wynmv-9-Gujaotvjg Kjxkm-8-Egulmhxsr Gamma Globulins PEP Interpretation Triglycerides Urine pH Urine Creatinine Urine Total Protein Vancomycin Trough Digoxin Crossmatch 11/04/19 11/04/19 11/04/19 05:00 05:00 05:19 WBC RBC 2.96 L Hgb 8.6 L Hct 25.5 L MCHC RDW 16.7 H Plt Count Lymph % (Auto) [place] % (Auto) Lymph # [place] # Seg Neutrophils % Seg Neuts % (Manual) Lymphocytes % (Manual) Seg Neutrophils # Seg Neutrophils # Man Lymphocytes # (Manual) Monocytes # (Manual) POC ABG pH ABG pH POC ABG pCO2 POC ABG pO2 ABG pO2 ABG HCO3 ABG Base Excess ABG Hemoglobin Oxyhemoglobin Sodium Potassium 3.5 L Chloride Carbon Dioxide BUN Creatinine 0.5 L Glucose 111 H POC Glucose 106 H Calcium 8.1 L Phosphorus Magnesium Direct Bilirubin AST Alkaline Phosphatase C-Reactive Protein Serum Total Protein Total Protein Albumin Prealbumin Totrd-9-Obaqbhzwq Ppsyx-2-Myqxsjyac Gamma Globulins PEP Interpretation Triglycerides Urine pH Urine Creatinine Urine Total Protein Vancomycin Trough Digoxin Crossmatch 11/04/19 11/05/19 11/05/19 12:40 00:28 04:19 WBC 12.4 H RBC 2.98 L Hgb 8.5 L Hct 25.5 L MCHC RDW 16.6 H Plt Count Lymph % (Auto) [place] % (Auto) Lymph # [place] # Seg Neutrophils % Seg Neuts % (Manual) Lymphocytes % (Manual) Seg Neutrophils # Seg Neutrophils # Man Lymphocytes # (Manual) Monocytes # (Manual) POC ABG pH ABG pH POC ABG pCO2 POC ABG pO2 ABG pO2 ABG HCO3 ABG Base Excess ABG Hemoglobin Oxyhemoglobin Sodium Potassium Chloride Carbon Dioxide BUN Creatinine Glucose POC Glucose 109 H 132 H Calcium Phosphorus Magnesium Direct Bilirubin AST Alkaline Phosphatase C-Reactive Protein Serum Total Protein Total Protein Albumin Prealbumin Ofrbj-6-Xawrvgryv Mfqmm-6-Otmwntngj Gamma Globulins PEP Interpretation Triglycerides Urine pH Urine Creatinine Urine Total Protein Vancomycin Trough Digoxin Crossmatch 11/05/19 11/05/19 11/05/19 04:19 05:40 13:14 WBC RBC Hgb Hct MCHC RDW Plt Count Lymph % (Auto) [place] % (Auto) Lymph # [place] # Seg Neutrophils % Seg Neuts % (Manual) Lymphocytes % (Manual) Seg Neutrophils # Seg Neutrophils # Man Lymphocytes # (Manual) Monocytes # (Manual) POC ABG pH ABG pH POC ABG pCO2 POC ABG pO2 ABG pO2 ABG HCO3 ABG Base Excess ABG Hemoglobin Oxyhemoglobin Sodium Potassium 3.4 L Chloride Carbon Dioxide BUN Creatinine 0.4 L Glucose 106 H POC Glucose 136 H 145 H Calcium 8.2 L Phosphorus Magnesium Direct Bilirubin AST Alkaline Phosphatase C-Reactive Protein Serum Total Protein Total Protein Albumin Prealbumin Ojioz-1-Wkgtxulgh Dnlyf-0-Xaaybpvts Gamma Globulins PEP Interpretation Triglycerides Urine pH Urine Creatinine Urine Total Protein Vancomycin Trough Digoxin Crossmatch 11/05/19 11/05/19 11/06/19 18:29 23:42 05:00 WBC 12.2 H RBC 2.89 L Hgb 8.2 L Hct 24.9 L MCHC RDW 16.4 H Plt Count Lymph % (Auto) [place] % (Auto) Lymph # [place] # Seg Neutrophils % Seg Neuts % (Manual) Lymphocytes % (Manual) Seg Neutrophils # Seg Neutrophils # Man Lymphocytes # (Manual) Monocytes # (Manual) POC ABG pH ABG pH POC ABG pCO2 POC ABG pO2 ABG pO2 ABG HCO3 ABG Base Excess ABG Hemoglobin Oxyhemoglobin Sodium Potassium Chloride Carbon Dioxide BUN Creatinine Glucose POC Glucose 138 H 117 H Calcium Phosphorus Magnesium Direct Bilirubin AST Alkaline Phosphatase C-Reactive Protein Serum Total Protein Total Protein Albumin Prealbumin [id number] Hkcey-[id number] Gamma Globulins PEP Interpretation Triglycerides Urine pH Urine Creatinine Urine Total Protein Vancomycin Trough Digoxin Crossmatch 11/06/19 11/06/19 11/06/19 05:00 05:22 17:39 WBC RBC Hgb Hct MCHC RDW Plt Count Lymph % (Auto) [place] % (Auto) Lymph # [place] # Seg Neutrophils % Seg Neuts % (Manual) Lymphocytes % (Manual) Seg Neutrophils # Seg Neutrophils # Man Lymphocytes # (Manual) Monocytes # (Manual) POC ABG pH ABG pH POC ABG pCO2 POC ABG pO2 ABG pO2 ABG HCO3 ABG Base Excess ABG Hemoglobin Oxyhemoglobin Sodium Potassium Chloride Carbon Dioxide BUN Creatinine 0.4 L Glucose 114 H POC Glucose 121 H 110 H Calcium 8.2 L Phosphorus Magnesium Direct Bilirubin AST Alkaline Phosphatase C-Reactive Protein Serum Total Protein Total Protein Albumin Prealbumin Hlsdk-3-Wvbzkchlr Rspxg-6-Eqxonzvrv Gamma Globulins PEP Interpretation Triglycerides Urine pH Urine Creatinine Urine Total Protein Vancomycin Trough Digoxin Crossmatch 11/06/19 11/07/19 11/07/19 23:29 04:06 04:06 WBC 13.0 H RBC 2.80 L Hgb 7.9 L Hct 24.0 L MCHC RDW 16.5 H Plt Count Lymph % (Auto) 7.0 L [place] % (Auto) Lymph # 0.9 L [place] # Seg Neutrophils % 86.3 H Seg Neuts % (Manual) Lymphocytes % (Manual) Seg Neutrophils # 11.2 H Seg Neutrophils # Man Lymphocytes # (Manual) Monocytes # (Manual) POC ABG pH ABG pH POC ABG pCO2 POC ABG pO2 ABG pO2 ABG HCO3 ABG Base Excess ABG Hemoglobin Oxyhemoglobin Sodium Potassium Chloride Carbon Dioxide BUN Creatinine 0.4 L Glucose 110 H POC Glucose 113 H Calcium 8.2 L Phosphorus Magnesium Direct Bilirubin AST Alkaline Phosphatase C-Reactive Protein Serum Total Protein Total Protein Albumin Prealbumin Xazbt-6-Vropyygiv Eklzr-7-Lycphecnn Gamma Globulins PEP Interpretation Triglycerides Urine pH Urine Creatinine Urine Total Protein Vancomycin Trough Digoxin Crossmatch 11/07/19 11/07/19 11/07/19 05:43 12:47 18:19 WBC RBC Hgb Hct MCHC RDW Plt Count Lymph % (Auto) [place] % (Auto) Lymph # [place] # Seg Neutrophils % Seg Neuts % (Manual) Lymphocytes % (Manual) Seg Neutrophils # Seg Neutrophils # Man Lymphocytes # (Manual) Monocytes # (Manual) POC ABG pH ABG pH POC ABG pCO2 POC ABG pO2 ABG pO2 ABG HCO3 ABG Base Excess ABG Hemoglobin Oxyhemoglobin Sodium Potassium Chloride Carbon Dioxide BUN Creatinine Glucose POC Glucose 114 H 120 H 112 H Calcium Phosphorus Magnesium Direct Bilirubin AST Alkaline Phosphatase C-Reactive Protein Serum Total Protein Total Protein Albumin Prealbumin Uufdi-3-Vetcgqqyq Kvrtm-5-Pwbvbxdrw Gamma Globulins PEP Interpretation Triglycerides Urine pH Urine Creatinine Urine Total Protein Vancomycin Trough Digoxin Crossmatch 11/08/19 11/08/19 11/08/19 03:45 03:45 11:43 WBC 12.7 H RBC 2.82 L Hgb 7.8 L Hct 24.4 L MCHC RDW 16.5 H Plt Count Lymph % (Auto) 9.4 L [place] % (Auto) Lymph # [place] # 0.9 H Seg Neutrophils % 83.0 H Seg Neuts % (Manual) Lymphocytes % (Manual) Seg Neutrophils # 10.6 H Seg Neutrophils # Man Lymphocytes # (Manual) Monocytes # (Manual) POC ABG pH ABG pH POC ABG pCO2 POC ABG pO2 ABG pO2 ABG HCO3 ABG Base Excess ABG Hemoglobin Oxyhemoglobin Sodium Potassium Chloride Carbon Dioxide BUN Creatinine 0.4 L Glucose 107 H POC Glucose 118 H Calcium Phosphorus Magnesium Direct Bilirubin AST Alkaline Phosphatase C-Reactive Protein Serum Total Protein Total Protein Albumin Prealbumin Evece-3-Nvxmdxhsj Lyqld-7-Aahofydzb Gamma Globulins PEP Interpretation Triglycerides Urine pH Urine Creatinine Urine Total Protein Vancomycin Trough Digoxin Crossmatch 11/08/19 11/09/19 11/09/19 23:45 12:41 12:56 WBC RBC Hgb Hct MCHC RDW Plt Count Lymph % (Auto) [place] % (Auto) Lymph # [place] # Seg Neutrophils % Seg Neuts % (Manual) Lymphocytes % (Manual) Seg Neutrophils # Seg Neutrophils # Man Lymphocytes # (Manual) Monocytes # (Manual) POC ABG pH ABG pH POC ABG pCO2 POC ABG pO2 ABG pO2 ABG HCO3 ABG Base Excess ABG Hemoglobin Oxyhemoglobin Sodium Potassium Chloride Carbon Dioxide BUN Creatinine Glucose POC Glucose 113 H 107 H 122 H Calcium Phosphorus Magnesium Direct Bilirubin AST Alkaline Phosphatase C-Reactive Protein Serum Total Protein Total Protein Albumin Prealbumin Rakml-4-Tdfroifda Zwzez-5-Ljmdquibt Gamma Globulins PEP Interpretation Triglycerides Urine pH Urine Creatinine Urine Total Protein Vancomycin Trough Digoxin Crossmatch 11/10/19 11/10/19 11/11/19 05:12 12:20 12:13 WBC RBC Hgb Hct MCHC RDW Plt Count Lymph % (Auto) [place] % (Auto) Lymph # [place] # Seg Neutrophils % Seg Neuts % (Manual) Lymphocytes % (Manual) Seg Neutrophils # Seg Neutrophils # Man Lymphocytes # (Manual) Monocytes # (Manual) POC ABG pH ABG pH POC ABG pCO2 POC ABG pO2 ABG pO2 ABG HCO3 ABG Base Excess ABG Hemoglobin Oxyhemoglobin Sodium Potassium Chloride Carbon Dioxide BUN Creatinine Glucose POC Glucose 127 H 125 H 107 H Calcium Phosphorus Magnesium Direct Bilirubin AST Alkaline Phosphatase C-Reactive Protein Serum Total Protein Total Protein Albumin Prealbumin Phqsi-0-Zrdljbeiq Cmqnd-0-Iwckregmp Gamma Globulins PEP Interpretation Triglycerides Urine pH Urine Creatinine Urine Total Protein Vancomycin Trough Digoxin Crossmatch
[2019-11-11] MEDS: ENOXAPARIN 40 MG/0.4 ML INJ SUB-Q SCH (21:37)
[2019-11-12] MEDS: INSULIN LISPRO 100 UNIT/ML SUB-Q SCH ×4 (00:51→18:00)
[2019-11-12] MEDS: IPRATROPIUM/ALBUTEROL SULFATE 3 ML AMPUL.NEB IH SCH ×3 (02:47→14:10)
[2019-11-12] MEDS: HALOPERIDOL LACTATE 5 MG/1 ML INJ IV PRN (03:33)
[2019-11-12 06:27] LABS: Basophils % (Auto) 0.3 % (0.0-1.8); Eosinophils # (Auto) 0.1 K/mm3 (0.0-0.4); Eosinophils % (Auto) 0.7 % (0.0-4.3); Hematocrit 23.4 % (35.5-45.6); Hemoglobin 7.8 gm/dl (11.8-15.2); Lymphocytes # (Auto) 1.2 K/mm3 (1.2-5.4); Lymphocytes % (Auto) 11.9 % (13.4-35.0); Mean Corpuscular HGB Conc 33 % (32-34); Mean Corpuscular Volume 84 fl (84-94); Monocytes # (Auto) 0.9 K/mm3 (0.0-0.8); Monocytes % (Auto) 8.9 % (0.0-7.3); Platelet Count 306 K/mm3 (140-440); Red Blood Count 2.77 M/mm3 (3.65-5.03); Red Cell Distribution Width 16.6 % (13.2-15.2)
[2019-11-12] MEDS: METOPROLOL TARTRATE 50 MG TAB PO SCH ×3 (07:43→21:23)
[2019-11-12] MEDS: ARFORMOTEROL 15 MCG/2 ML NEBU IH SCH (08:49)
[2019-11-12] MEDS: BUDESONIDE 0.5 MG/2 ML NEBU IH SCH (08:49)
--- NOTE | 2019-11-12 08:52 | Progress Note ---
Assessment and Plan Assessment and plan: Sepsis, improved. Abx per ID. Enterococcus on cultures. If patient has worsening labs/vitals, then rescan and place additional drains as appropriate. ID plans trial off antibiotics. Dehiscence of closure of fascia s/p ex lap with closure of abdominal wall and wound vac placement (10/05) - POD#37; s/p Re-exploration, washout, transection of colon, Abthera placement - 10/13 - POD#29; s/p abd washout, partial omentectomy, partial colectomy with colostomy - 10/16 POD#26. s/p abd washout, feeding tube placement, AbThera placement - 10/19 - POD#23; Abdominal washout and closure - 10/22 - POD#20 Acute Respiratory failure with hypoxia -Extubated 10/25/19 -Re-intubated 10/30 -Patient self extubated morning of 11/04, now on Oxygen by [place] [employer] Floor[employer] following -Multifactorial secondary to pneumonia, pneumothorax and COPD Sepsis On Merrem, Micafungin ID Physician following right sump drain fell out Surgeon following Left pneumothorax s/p chest tube placed 10/30 Resolved. Left lower lobe pneumonia -CTA chest showed left lower lobe consolidation with pleural effusion COPD -Stable -cont neb tx GUILLERMO on CKD -due to ATN due to sepsis -Resolved. Recheck BMP in a.m. -No hydronephrosis on CT Severe Metabolic acidosis -Improved Acute Toxic Metabolic Encephalopathy/Delirium Tremens. Resolved. -Continue CIWA protocol due to hx of ETOH abuse, 6packs a day -Head CT scan negative for acute findings Acute blood loss anemia -H/H stable -Continue to monitor H&H and transfuse for hb<7 SVT, Atrial fib/flutter with RVR -treated with adenosine x1 -off amiodarone and cardizem drip. On oral amiodarone and IV Lopressor. -HR currently controlled -Cardiology following Hx of Hypertension -Stable Hyperlipidemia -stable Atypical chest pain -probably secondary to pneumonitis -troponin levels neg Hx of MS/CAD -s/p PCI of the circumflex and second vessel POBA of the distal LAD occlusion. Left ventricle fraction of 45-50%. Morbid obesity with BMI of 43.4 -Lifestyle modification recommended Moderate Protein calorie malnutrition secondary to surgery -On TPN -Nutrition following Tobacco abuse -Cessation recommended Morbid obesity with BMI of 43.4 -Lifestyle modification recommended DVT and GI ppx: Lovenox/PPI Disposition. Patient transferred to [facility] yesterday. We will likely transfer to the floor. History Interval history: No new issues overnight Hospitalist Physical - Constitutional Vitals: Temp Pulse Resp BP Pulse Ox 98.6 F 93 H 24 126/54 93 11/12/19 03:57 11/12/19 08:00 11/12/19 08:00 11/12/19 08:00 11/12/19 08:00 General appearance: Present: no acute distress, obese - EENT Eyes: Present: PERRL, EOM intact ENT: hearing intact, clear oral mucosa, dentition normal - Neck Neck: Present: supple, normal ROM - Respiratory Respiratory effort: normal Respiratory: bilateral: CTA - Cardiovascular Rhythm: regular Heart Sounds: Present: S1 & S2. Absent: gallop, rub - Extremities Extremities: no ischemia, No edema, Full ROM - Abdominal General gastrointestinal: soft, tender, non-distended, normal bowel sounds, other (Wound VAC in place. Ostomy. Sump drains.) - Integumentary Integumentary: Present: clear, warm, dry - Neurologic Neurologic: CNII-XII intact, moves all extremities Results - Labs CBC & Chem 7: 11/12/19 06:00 11/08/19 03:45 Labs: Laboratory Last Values WBC 10.4 K/mm3 (4.5-11.0) 11/12/19 06:00 RBC 2.77 M/mm3 (3.65-5.03) L 11/12/19 06:00 Hgb 7.8 gm/dl (11.8-15.2) L 11/12/19 06:00 Hct 23.4 % (35.5-45.6) L 11/12/19 06:00 MCV 84 fl (84-94) 11/12/19 06:00 MCH 28 pg (28-32) 11/12/19 06:00 MCHC 33 % (32-34) 11/12/19 06:00 RDW 16.6 % (13.2-15.2) H 11/12/19 06:00 Plt Count 306 K/mm3 (140-440) 11/12/19 06:00 Lymph % (Auto) 11.9 % (13.4-35.0) L 11/12/19 06:00 [place] % (Auto) 8.9 % (0.0-7.3) H 11/12/19 06:00 Eos % (Auto) 0.7 % (0.0-4.3) 11/12/19 06:00 Baso % (Auto) 0.3 % (0.0-1.8) 11/12/19 06:00 Lymph # 1.2 K/mm3 (1.2-5.4) 11/12/19 06:00 [place] # 0.9 K/mm3 (0.0-0.8) H 11/12/19 06:00 Eos # 0.1 K/mm3 (0.0-0.4) 11/12/19 06:00 Baso # 0.0 K/mm3 (0.0-0.1) 11/12/19 06:00 Add Manual Diff Complete 10/16/19 09:20 Total Counted 100 10/16/19 09:20 Seg Neutrophils % 78.2 % (40.0-70.0) H 11/12/19 06:00 Seg Neuts % (Manual) 79.0 % (40.0-70.0) H 10/16/19 09:20 Band Neutrophils % 12.0 % 10/16/19 09:20 Lymphocytes % (Manual) 4.0 % (13.4-35.0) L 10/16/19 09:20 Reactive Lymphs % (Man) 0 % 10/16/19 09:20 Monocytes % (Manual) 2.0 % (0.0-7.3) 10/16/19 09:20 Eosinophils % (Manual) 0 % (0.0-4.3) 10/16/19 09:20 Basophils % (Manual) 0 % (0.0-1.8) 10/16/19 09:20 Metamyelocytes % 2.0 % 10/16/19 09:20 Myelocytes % 1.0 % 10/16/19 09:20 Promyelocytes % 0 % 10/16/19 09:20 Blast Cells % 0 % 10/16/19 09:20 Nucleated RBC % Not Reportable 10/16/19 09:20 Seg Neutrophils # 8.2 K/mm3 (1.8-7.7) H 11/12/19 06:00 Seg Neutrophils # Man 11.5 K/mm3 (1.8-7.7) H 10/16/19 09:20 Band Neutrophils # 1.8 K/mm3 10/16/19 09:20 Lymphocytes # (Manual) 0.6 K/mm3 (1.2-5.4) L 10/16/19 09:20 Abs React Lymphs (Man) 0.0 K/mm3 10/16/19 09:20 Monocytes # (Manual) 0.3 K/mm3 (0.0-0.8) 10/16/19 09:20 Eosinophils # (Manual) 0.0 K/mm3 (0.0-0.4) 10/16/19 09:20 Basophils # (Manual) 0.0 K/mm3 (0.0-0.1) 10/16/19 09:20 Metamyelocytes # 0.3 K/mm3 10/16/19 09:20 Myelocytes # 0.1 K/mm3 10/16/19 09:20 Promyelocytes # 0.0 K/mm3 10/16/19 09:20 Blast Cells # 0.0 K/mm3 10/16/19 09:20 WBC Morphology Not Reportable 10/16/19 09:20 Hypersegmented Neuts Not Reportable 10/16/19 09:20 Hyposegmented Neuts Not Reportable 10/16/19 09:20 Hypogranular Neuts Not Reportable 10/16/19 09:20 Smudge Cells Not Reportable 10/16/19 09:20 Toxic Granulation Not Reportable 10/16/19 09:20 Toxic Vacuolation Not Reportable 10/16/19 09:20 Dohle Bodies Not Reportable 10/16/19 09:20 Pelger-Huet Anomaly Not Reportable 10/16/19 09:20 Andres Rods Not Reportable 10/16/19 09:20 Platelet Estimate Consistent w auto 10/16/19 09:20 Clumped Platelets Not Reportable 10/16/19 09:20 Plt Clumps, EDTA Not Reportable 10/16/19 09:20 Large Platelets Not Reportable 10/16/19 09:20 Giant Platelets Not Reportable 10/16/19 09:20 Platelet Satelliting Not Reportable 10/16/19 09:20 Plt Morphology Comment Not Reportable 10/16/19 09:20 RBC Morphology Not Reportable 10/16/19 09:20 Dimorphic RBCs Not Reportable 10/16/19 09:20 Polychromasia Few 10/16/19 09:20 Hypochromasia Few 10/16/19 09:20 Poikilocytosis Not Reportable 10/16/19 09:20 Anisocytosis Not Reportable 10/16/19 09:20 Microcytosis Not Reportable 10/16/19 09:20 Macrocytosis Not Reportable 10/16/19 09:20 Spherocytes Not Reportable 10/16/19 09:20 Pappenheimer Bodies Not Reportable 10/16/19 09:20 Sickle Cells Not Reportable 10/16/19 09:20 Target Cells Few 10/16/19 09:20 Tear Drop Cells Not Reportable 10/16/19 09:20 Ovalocytes Not Reportable 10/16/19 09:20 Helmet Cells Not Reportable 10/16/19 09:20 [place] Bodies Not Reportable 10/16/19 09:20 Hanna Rings Not Reportable 10/16/19 09:20 Bishnu Cells Not Reportable 10/16/19 09:20 Bite Cells Not Reportable 10/16/19 09:20 Crenated Cell Not Reportable 10/16/19 09:20 Elliptocytes Not Reportable 10/16/19 09:20 Acanthocytes (Spur) Not Reportable 10/16/19 09:20 Rouleaux Not Reportable 10/16/19 09:20 Hemoglobin C Crystals Not Reportable 10/16/19 09:20 Schistocytes Not Reportable 10/16/19 09:20 Malaria parasites Not Reportable 10/16/19 09:20 Toni Bodies Not Reportable 10/16/19 09:20 Hem Pathologist Commnt No 10/16/19 09:20 POC ABG pH 7.422 (7.35-7.45) 11/03/19 04:28 ABG pH 7.390 pH Units (7.350-7.450) 10/23/19 04:47 POC ABG pCO2 45.4 (35-45) H 11/03/19 04:28 ABG pCO2 48.4 mm Hg 10/23/19 04:47 POC ABG pO2 83 (80-105) 11/03/19 04:28 ABG pO2 68.9 mm Hg (80.0-90.0) L 10/23/19 04:47 POC ABG HCO3 29.6 (22-26 mml/L) 11/03/19 04:28 ABG HCO3 28.7 mmol/L (20.0-26.0) H 10/23/19 04:47 POC ABG Total CO2 31 (23-27mmol/L) 11/03/19 04:28 POC ABG O2 Sat 96 11/03/19 04:28 ABG O2 Saturation 96.6 % (95.0-99.0) 10/23/19 04:47 ABG O2 Content 8.8 (0.0-44) 10/23/19 04:47 POC ABG Base Excess 5 ((-2) - (+3)mmol/L) 11/03/19 04:28 ABG Base Excess 3.4 mmol/L (-2.0-3.0) H 10/23/19 04:47 ABG Hemoglobin 6.6 gm/dl (14.0-18.0) L 10/23/19 04:47 ABG Carboxyhemoglobin 2.1 % (0.0-5.0) 10/23/19 04:47 ABG Methemoglobin 0.5 % (0.0-1.5) 10/23/19 04:47 Oxyhemoglobin 94.1 % (95.0-99.0) L 10/23/19 04:47 FiO2 40 % 11/03/19 04:28 Sodium 141 mmol/L (137-145) 11/08/19 03:45 Potassium 3.7 mmol/L (3.6-5.0) 11/08/19 03:45 Chloride 98.6 mmol/L (98-107) 11/08/19 03:45 Carbon Dioxide 30 mmol/L (22-30) 11/08/19 03:45 Anion Gap 16 mmol/L 11/08/19 03:45 BUN 13 mg/dL (9-20) 11/08/19 03:45 Creatinine 0.4 mg/dL (0.8-1.5) L 11/08/19 03:45 Estimated GFR > 60 ml/min 11/08/19 03:45 BUN/Creatinine Ratio 33 % 11/08/19 03:45 Glucose 107 mg/dL (75-100) H 11/08/19 03:45 POC Glucose 120 (70-105) H 11/12/19 07:52 Hemoglobin A1c 5.7 % (4-6) 10/06/19 05:36 Lactic Acid 1.10 mmol/L (0.7-2.0) 10/13/19 04:20 Calcium 8.6 mg/dL (8.4-10.2) 11/08/19 03:45 Ionized Calcium 5.2 mg/dL (4.8-5.6) 10/18/19 07:41 Phosphorus 2.70 mg/dL (2.5-4.5) 11/02/19 12:43 Magnesium 2.40 mg/dL (1.7-2.3) H 11/02/19 12:43 Total Bilirubin 1.10 mg/dL (0.1-1.2) 10/26/19 06:15 Direct Bilirubin 0.7 mg/dL (0-0.2) H 10/23/19 10:44 Indirect Bilirubin 0.1 mg/dL 10/23/19 10:44 AST 23 units/L (5-40) 10/26/19 06:15 ALT 13 units/L (7-56) 10/26/19 06:15 Alkaline Phosphatase 148 units/L (35-129) H 10/26/19 06:15 Ammonia 49.0 umol/L (25-60) 10/13/19 04:20 Troponin T < 0.010 ng/mL (0.00-0.029) 10/09/19 17:23 C-Reactive Protein 30.60 mg/dL (0.00-1.30) H 10/15/19 04:32 Serum Total Protein 5.2 g/dL (6.1-8.1) L 10/11/19 09:00 Total Protein 5.9 g/dL (6.3-8.2) L 10/26/19 06:15 Albumin 2.4 g/dL (3.9-5) L 10/26/19 06:15 Albumin/Globulin Ratio 0.7 % 10/26/19 06:15 Prealbumin 0.030 g/L (0.200-0.400) L 10/15/19 04:32 Qmtuo-7-Tjftpfljg See scanned result 10/11/19 Unknown Ivoxv-4-Rlydniyai See scanned result 10/11/19 Unknown Beta Globulins See scanned result 10/11/19 Unknown Gamma Globulins See scanned result 10/11/19 Unknown Abnorm Protein Band 1 see below 10/11/19 09:00 PEP Interpretation See scanned result 10/11/19 Unknown Triglycerides 185 mg/dL (2-149) H 10/26/19 06:15 Urine Color Yellow (Yellow) 10/26/19 Unknown Urine Turbidity Clear (Clear) 10/26/19 Unknown Urine pH 9.0 (5.0-7.0) H 10/26/19 Unknown Ur Specific [place] 1.011 (1.003-1.030) 10/26/19 Unknown Urine Protein 30 mg/dl mg/dL (Negative) 10/26/19 Unknown Urine Glucose (UA) Neg mg/dL (Negative) 10/26/19 Unknown Urine Ketones Neg mg/dL (Negative) 10/26/19 Unknown Urine Blood Neg (Negative) 10/26/19 Unknown Urine Nitrite Neg (Negative) 10/26/19 Unknown Urine Bilirubin Neg (Negative) 10/26/19 Unknown Urine Urobilinogen < 2.0 mg/dL (<2.0) 10/26/19 Unknown Ur Leukocyte Esterase Neg (Negative) 10/26/19 Unknown Urine WBC (Auto) 1.0 /HPF (0.0-6.0) 10/26/19 Unknown Urine RBC (Auto) 1.0 /HPF (0.0-6.0) 10/26/19 Unknown Urine Bacteria (Auto) 1+ /HPF (Negative) 10/11/19 06:23 Urine Mucus Few /HPF 10/26/19 Unknown Urine Eosinophils None seen (None Seen) 10/11/19 06:23 Ur Random Creatinine See scanned result 10/11/19 Unknown U Random Total Protein See scanned result 10/11/19 Unknown Urine Creatinine 116.8 mg/dL (0.1-20.0) H 10/11/19 06:23 Urine Creatinine 118.2 mg/dL (0.1-20.0) H 10/11/19 06:23 Protein/Creatinin Ratio See scanned result 10/11/19 Unknown Urine Sodium 14 mmol/L 10/11/19 06:23 Urine Total Protein 104 mg/dL (5-11.8) H 11/28/19 06:23 Urine Total Protein 105 mg/dL (5-11.8) H 10/11/19 06:23 U Abnormal Prot Band 1 See scanned result 10/11/19 Unknown U Abnormal Prot Band 2 See scanned result 10/11/19 Unknown U Abnormal Prot Band 3 See scanned result 10/11/19 Unknown Vancomycin Trough 5.7 ug/mL (5.0-20.0) 11/05/19 09:00 Random Vancomycin 9.6 ug/mL (0-40.0) 11/03/19 03:42 Digoxin 0.7 ng/mL (0.9-2.0) L 10/19/19 04:21 Blood Type A POSITIVE 10/23/19 11:50 Antibody Screen Negative 10/23/19 11:50 Crossmatch See Detail 10/23/19 11:50 Active Medications - Current Medications Current Medications: Generic Name Dose Route Start Last Admin Trade Name Freq PRN Reason Stop Dose Admin Acetaminophen 650 mg 10/25/19 13:00 11/03/19 16:03 Tylenol FEEDTUBE 650 mg Q4H PRN Administration Fever >100.5 Acetaminophen/Hydrocodone Bitart 7.5 mg 11/07/19 16:57 Hydrocodone/Apap 7.5-325 FEEDTUBE Q4H PRN Pain, Moderate (4-6) Albuterol/Ipratropium 1 ampul 10/06/19 02:00 11/12/19 02:47 Duoneb *Not For Prn Use* IH 1 ampul Q6HRT VERÓNICA Administration Amiodarone HCl 200 mg 10/23/19 13:00 11/11/19 10:01 Cordarone PO 200 mg QDAY VERÓNICA Administration Lipase/Protease/Amylase 1 each 10/20/19 10:37 Pancremeeta Moreno 10,500 Unit FEEDTUBE PRN PRN For Clogged Feeding Tube Arformoterol Tartrate 15 mcg 10/06/19 08:30 11/11/19 20:47 Brovana Nebu IH 15 mcg Q12HRT VERÓNICA Administration Budesonide 0.5 mg 10/07/19 12:20 11/11/19 20:47 Pulmicort IH 0.5 mg Q12HRT VERÓNICA Administration Citalopram Hydrobromide 20 mg 10/27/19 12:00 11/11/19 10:00 Celexa PO 20 mg DAILY VERÓNICA Administration Enoxaparin Sodium 40 mg 11/05/19 22:00 11/11/19 21:37 Enoxaparin SUB-Q 40 mg QDAY@2200 [facility] Administration Haloperidol Lactate 5 mg 10/25/19 18:22 11/12/19 03:33 Haldol IV 5 mg Q6H PRN Administration Agitation Hydralazine HCl 10 mg 10/28/19 14:09 11/02/19 15:34 Apresoline IV 10 mg Q4HR PRN Administration Hypertension Hydromorphone HCl 2 mg 10/25/19 12:35 11/10/19 22:01 Dilaudid IV 2 mg Q4H PRN Administration Pain , Severe (7-10) Insulin Human Lispro 0 unit 10/14/19 12:00 11/12/19 07:43 Humalog SUB-Q Not Given Q6HR [facility] Protocol Lisinopril 20 mg 10/30/19 10:00 11/11/19 10:00 Zestril PO 20 mg QDAY [facility] Administration Metoprolol Tartrate 2.5 mg 10/15/19 15:34 11/01/19 18:00 Metoprolol IV 2.5 mg Q4HR PRN Administration HR >130 Metoprolol Tartrate 50 mg 10/25/19 14:00 11/12/19 07:43 Metoprolol PO Not Given Q8HR [facility] Multi-Ingred Cream/Lotion/Oil/Oint 1 applic 10/14/19 02:19 Artificial Tears Ophth Oint OU Q4HR PRN Dry Eye(s) Pantoprazole Sodium 40 mg 10/15/19 10:00 11/11/19 10:01 Protonix IV 40 mg QDAY [facility] Administration Simple Syrup 15 ml 10/20/19 10:37 Simple Syrup FEEDTUBE PRN PRN Hypoglycemia Simple Syrup 30 ml 10/20/19 10:37 Simple Syrup FEEDTUBE PRN PRN Hypoglycemia Sodium Bicarbonate 325 mg 10/20/19 10:37 Sodium Bicarbonate FEEDTUBE PRN PRN For Clogged Feeding Tube Sodium Chloride 10 ml 11/07/19 19:32 11/08/19 09:10 Sodium Chloride Flush Syringe 10 Ml IV 10 ml PRN PRN Administration LINE FLUSH Zolpidem Tartrate 5 mg 11/10/19 21:00 11/11/19 03:30 Ambien FEEDTUBE 5 mg QHS PRN Administration Sleep Nutrition/Malnutrition Assess - Dietary Evaluation Nutrition/Malnutrition Findings: Nutrition Notes Start: 10/08/19 11:36 Freq: Status: Active Protocol: Document 11/05/19 11:30 LM (Rec: 11/05/19 11:39 LM [id number]) Nutrition Notes Initial or Follow up Reassessment Other Pertinent Diagnosis intra-abdominal infection, disruption of bowel anastomosis, LE edema Current Diet Osmolite 1.5 at 60 ml/hr Labs/Tests K 3.4 Cr 0.4 BG 106 HgbA1C 5.7 Pertinent Medications Reviewed Height 6 ft Weight 145 kg [place] Body Weight (kg) 80.90 BMI 43.3 Weight Status Morbidly Obese Subjective/Other Information Osmolite running at 60 ml/hr. Pt tolerating new TF. Percent of energy/protein needs met: 100%/66% Burn Absent Trauma Absent GI Symptoms None Current % PO Negligible Minimum of two criteria No physical signs of malnutrition Fluid Accumulation Mild (non-severe) #2 Nutrition Diagnosis Inadequate oral intake Diagnosis Progress(for reassessment Continues documentation) #1 Nutrition Diagnosis Increased nutrient needs ( specify in comment below) Diagnosis Progress(for reassessment Continues documentation) Is patient on ventilator? No Is Patient Ambulatory and/or Out of Bed No REE-([facility]-confined to bed) 2785.236 Kcal/Kg value to use for calculation 14 Approximate Energy Requirements Using 2030 kcal/Kg Calculation Used for Recommendations Kcal/kg Additional Notes Protein: 136-169g (1.2-1.5g/kg ) AdjBW 113kg Fluid 1 ml/kcal or per MD Nutrition Intervention Change Diet Order: Continue TF Nutrition Support: Osmolite 1.5 at 60 ml/hr Flush 170 ml q4hr Kcal 2,160 Protein (gm) 90 Fluid (mL) 1,097 Goal #1 Meet at least 80% of kcal/ protein needs via TF Goal #2 TF tolerance Anticipated Discharge Needs: unable to determine at this time Follow-Up By: 11/12/19 Additional Comments F/U for TF tolerance
[2019-11-12] MEDS: AMIODARONE 200 MG TAB PO SCH (10:00)
[2019-11-12] MEDS: LISINOPRIL 20 MG TAB PO SCH (10:00)
[2019-11-12] MEDS: PANTOPRAZOLE 40 MG INJ IV SCH (10:00)
[2019-11-12] MEDS: CITALOPRAM 20 MG TAB PO SCH (10:00)
--- NOTE | 2019-11-12 10:15 | Progress Note ---
Assessment and Plan - Patient Problems (1) Dehiscence of closure of fascia, superficial or muscular Current Visit: No Status: Acute Qualifiers: Encounter type: initial encounter Qualified Code(s): T81.32XA - Disruption of internal operation (surgical) wound, not elsewhere classified, initial encounter Plan to address problem: Pt stable. s/p ex lap with closure of abdominal wall and wound vac placement (10/05) - POD#38; s/p Re-exploration, washout, transection of colon, Abthera placement - 10/13 - POD#30; s/p abd washout, partial omentectomy, partial colectomy with colostomy - 10/16 POD#27. s/p abd washout, feeding tube placement, AbThera placement - 10/19 - POD#24; Abdominal washout and closure - 10/22 - POD#21 Patient appears stable. WBC stable, but no fevers. Looks well today. Rec: 1) Neuro - self-extubated 11/04. 2) CV - BP normal today 3) Resp - On NC. Small bore CT on left. Mgmt per ICU team. Respiratory rate much better. 4) GI - Ostomy looks good. Functioning. Sump drains - Right drain was accidentally pulled out (10/30). Left one is still functioning. New small bore catheter placed 10/30 - moderate output after drain was stripped. Has appeared like stool. looking thinner and more yellow today. Plan to connect both to wall suction - continuous. Output slowly trending down. Midline drain - seems to be working well. may eventually become main drain and we can remove the two left sided drains if their output is minimal. Wound Vac - wound looked good on last check. continue wound vac. Due for change today. Ostomy - functioning now. Some solid stool in bag. Gastric Port - Appears to be tolerating the clamping. Residuals are minimal (occasional high numbers). Ok to give water flushes in place of IVFs Rectal tube (malecot) - placed to help decompress rectosigmoid area. Ok if there is drainage around the tube. Irrigation BID. Originally was planning to consider removal the week of Nov 26. Patient would like it removed now. As he is more able to participate in his care now, will remove tube and encourage him to try and have a BM if he feels pressure, otherwise will do daily enemas in the short term. 5) - BUN/Cr stable. 6) ID - Abx per ID. Enterococcus on cultures. If patient has worsening labs/vitals, then rescan and place additional drains as appropriate. Discussed Abx plan with Dr. Lorenzo. I am ok with trial off Abx, 7) Nutrition - Tube feeds at goal. Passed Speech Eval. Seems to do ok with liquid diet. Will advance to soft diet. When taking soft diet well, will cut back on tube feeds. Will d/c once we are sure that he is meeting his nutritional needs by mouth. 8) DVT prophylaxis - SCDs. Lovenox 9) Family -no family at bedside. Communicated with over the phone 10) PT - will need rehab. 11) Dispo - Discussed with Dr. Negro about starting a search for a SNF/rehab. Note: Spoke with [place] surgeon on 11/01/19 about possible transfer. They re viewed the notes that were sent and we discussed the case. They felt that they had nothing else to offer. They agreed with our management. Also agreed that another exploration should not be done. If needed, additional drains can be placed. They did suggest putting a Malecot tube in the rectum to decompress that area. (That has been done). This conversation was communicated to the . Please call with questions. Subjective Date of service: 11/12/19 Patient Reports: Positive: no new complaints, feels better, tolerating liquids well, bowel movement. Negative: nausea, vomiting Objective Vital Signs - 12hr 11/11/19 11/11/19 11/11/19 22:30 23:00 23:30 Temperature Pulse Rate 85 85 81 Pulse Rate [ Anterior Bilateral Throughout] Pulse Rate [ From Monitor] Respiratory 31 H 29 H 15 Rate Respiratory Rate [Anterior Bilateral Throughout] Blood Pressure 137/35 115/34 135/42 Blood Pressure [Left] O2 Sat by Pulse 97 92 93 Oximetry 11/11/19 11/12/19 11/12/19 23:33 00:00 01:00 Temperature 99.8 F H Pulse Rate 84 81 Pulse Rate [ Anterior Bilateral Throughout] Pulse Rate [ 93 H From Monitor] Respiratory 25 H 35 H 20 Rate Respiratory Rate [Anterior Bilateral Throughout] Blood Pressure 135/42 Blood Pressure 136/46 [Left] O2 Sat by Pulse 90 95 96 Oximetry 12/11/12/19 11/12/19 02:00 03:00 03:07 Temperature Pulse Rate 84 88 Pulse Rate [ 84 86 Anterior Bilateral Throughout] Pulse Rate [ From Monitor] Respiratory 22 20 Rate Respiratory 26 H 28 H Rate [Anterior Bilateral Throughout] Blood Pressure Blood Pressure 131/46 124/52 [Left] O2 Sat by Pulse 96 97 Oximetry 11/12/19 11/12/19 11/12/19 03:57 04:00 05:00 Temperature 98.6 F Pulse Rate 89 86 Pulse Rate [ Anterior Bilateral Throughout] Pulse Rate [ 93 H From Monitor] Respiratory 17 17 Rate Respiratory Rate [Anterior Bilateral Throughout] Blood Pressure Blood Pressure 119/41 115/47 [Left] O2 Sat by Pulse 91 91 Oximetry 11/12/19 11/12/19 11/12/19 06:00 07:00 08:00 Temperature 98.3 F Pulse Rate 88 88 93 H Pulse Rate [ Anterior Bilateral Throughout] Pulse Rate [ From Monitor] Respiratory 26 H 25 H 24 Rate Respiratory Rate [Anterior Bilateral Throughout] Blood Pressure Blood Pressure 120/51 130/60 126/54 [Left] O2 Sat by Pulse 90 95 93 Oximetry - General physical appearance no distress, no pain, other (awake) - Respiratory normal expansion, normal respiratory effort - Abdomen soft, not tender, not distended, other (wound vac in place. Drains working) - Psychiatric oriented to person, oriented to place, other (got year and day wrong) - Labs 11/12/19 06:00 11/08/19 03:45
--- NOTE | 2019-11-12 10:35 | Progress Note ---
Assessment and Plan 54 y/o male with anastomic leak 11/12/19: Spoke with surgery this am. Currently pleased with progress. Reviewed IR note, and they plan to remove CT today. Continue IS. Will speak with CM about looking into rehabs directly from IMCU as oppose to transferring to the floor first. 11/06: Chest tube intact. No air leak. Will ask IR if catheter can be pulled out normally (i.e. not some form of tunneled catheter). If so will have them take it out later this week. If [facility] beds available, good candidate for there, likely not quite ready for floor yet. 11/04: Stable self extubation. Continue chest tube to suction. Will likely start waterseal tomorrow. Goad maybe to get CT out Tuesday. All other drains per surgery. Encouraged use of IS regularly at the bedside and suctioning as needed per . 11/03: Looks clinically better. Na was better on repeat labs. Spoke with and surgery to update them both. Most likely will attempt extubation in the am. Will hold feeds for about an hour in the morning prior to extubation then restart. 11/02: Repeat labs this am. Hard time believing that 2 liters of normal saline made his sodium increase that much. Also, once i discuss with surgery, may consider giving more blood. Will also hold tube feeds briefly as well. In case any procedures. Lovenox held last night. Continue vent support 11/01: Spoke with Dr. Krause this am and understand his concerns. Have started the transfer process. Most ICU's throughout the city are on diversion or full. [facility] has received his Faces[facility] and we are awaiting to hear back from them. CXR is clear. Minimal vent settings. Will continue supportive care for now. Follow up any new ID recs given increasing white and fever. 10/31: Will check CXR tomorrow. Continue chest tube to suction. Will likely stay in until extubated. Continue drains. Explained to staff to be extremely careful with these drains so that they do not come out. 10/30: Acute on chronic respiratory failure requiring reintubation. Appreciate Anesthesia assistance as he was a difficult intubation when we had to change his tube out about 1 week ago. Will continue on 100% until after Scans and then start to wean back down. CXR yesterday looked like pulmonary edema but improved today with positive pressure. Continue supportive care and await results of scans. 10/29: Discussed today on rounds. Patient had some issues over the weekend with the ICE chips and liquids. Will obtain speech consult/eval prior to restarting clears today. Spoke with nutrition and they will adjust tube feeds with new goal. Once at goal will start to taper off TPN. ordered Incentive madhu to bedside. Will also restart home dose of elaine today. pain control and drainage monitoring. Will continue ICU care. 10/26: Patient stable overall. Not ready for floor. Would be ok with step down if beds are needed. If spikes temp again will order blood cultures x2, urine culture, UA and repeat CXR. Gave an additional 40 of lasix this am. Will give more potassium replacement. Continue trickle feeds for now. Will continue PO meds and restart home dose of citalopram. Wean FiO2 and flow for sats >88%. Mildly hypertensive but this was secondary to agitation. Normalizing now. 10/25: Will extubate today. Will use HFNC if distress or hypoxemia is noted. Not a good candidate for bipap given his recent abdominal issues. Spoke with who is now at bedside and surgery. Will continue to attempt to achieve net negative state daily. Hold on further albumin administration. Hypernatremia is iatrogenic from lasix administration Worse case scenario, will re-intubate with anesthesia. 10/24: Responding well to lasix and protein therapy. Will give 2 more doses of lasix today. Consider one for tonight as well. Last albumin today at 1800. CXR is stable, still with layering bilateral pleural effusions. Will reassess again tomorrow. Reviewed all other relationship consultant notes. Spoke with sisters at bedside, updated and spoke with surgery. 10/23: Long discussion with surgery and via phone. Anasarca is likely from decreased oncotic pressure and immobility of several days now that abdomen is finally closed. Now fluid is essentially leaking into the interstitium now t hat the abdomen is shut and there is increased intra-abdominal pressure. Total Protein is 4.5 and albumin is 1.2. This is to be expected given current illness. Will attempt to increase oncotic pressure with 2 units of PRBC's and albumin infusions for the next 24 hours starting at midnight tonight. Will give lasix inbetween transfusions and then again tonight. CXR is consistent with pulmonary edema volume overload. Will continue vent for now and after significant volume removal then will attempt extubation. Discussed with and she understands. Will continue to monitor. Agree with trickle feeds and cards has switched amio over to PO to be given through the G-tube. If tolerates, hopeful to be rid of TPN soon as this is necessary but excessive volume as well. 10/22: Added diprovan as more sedation was needed. Hopefully once closed and no leaks, patient can be extubated. Cards very concerned about length of time for IV amio. Will discuss with surgery the time frame that gut can be used. 10/21: Will hold on weaning until abdomen is closed, especially knowing mental status is good. Will focus on pain control. Replace electrolytes. Appreciate Surgery recs and detail. Follow up any new recs from cards. Or tomorrow for closure CCT 31 minutes. Subjective Date of service: 11/12/19 Principal diagnosis: acute renal failure Interval history: No acute events. Stable pulm status. Objective Vital Signs - 12hr 11/11/19 11/11/19 11/11/19 23:00 23:30 23:33 Temperature Pulse Rate 85 81 84 Pulse Rate [ Anterior Bilateral Throughout] Pulse Rate [ From Monitor] Respiratory 29 H 15 25 H Rate Respiratory Rate [Anterior Bilateral Throughout] Blood Pressure 115/34 135/42 135/42 Blood Pressure [Left] O2 Sat by Pulse 92 93 90 Oximetry 11/12/19 11/12/19 11/12/19 00:00 01:00 02:00 Temperature 99.8 F H Pulse Rate 81 84 Pulse Rate [ 84 Anterior Bilateral Throughout] Pulse Rate [ 93 H From Monitor] Respiratory 35 H 20 22 Rate Respiratory 26 H Rate [Anterior Bilateral Throughout] Blood Pressure Blood Pressure 136/46 131/46 [Left] O2 Sat by Pulse 95 96 96 Oximetry 11/12/19 11/12/19 11/12/19 03:00 03:07 03:57 Temperature 98.6 F Pulse Rate 88 Pulse Rate [ 86 Anterior Bilateral Throughout] Pulse Rate [ From Monitor] Respiratory 20 Rate Respiratory 28 H Rate [Anterior Bilateral Throughout] Blood Pressure Blood Pressure 124/52 [Left] O2 Sat by Pulse 97 Oximetry 11/12/19 11/12/19 11/12/19 04:00 05:00 06:00 Temperature Pulse Rate 89 86 88 Pulse Rate [ Anterior Bilateral Throughout] Pulse Rate [ 93 H From Monitor] Respiratory 17 17 26 H Rate Respiratory Rate [Anterior Bilateral Throughout] Blood Pressure Blood Pressure 119/41 115/47 120/51 [Left] O2 Sat by Pulse 91 91 90 Oximetry 11/12/19 11/12/19 07:00 08:00 Temperature 98.3 F Pulse Rate 88 93 H Pulse Rate [ Anterior Bilateral Throughout] Pulse Rate [ From Monitor] Respiratory 25 H 24 Rate Respiratory Rate [Anterior Bilateral Throughout] Blood Pressure Blood Pressure 130/60 126/54 [Left] O2 Sat by Pulse 95 93 Oximetry Constitutional: no acute distress, alert, other (obese) Eyes: non-icteric ENT: oropharynx moist Neck: supple Effort: normal Ascultation: Bilateral: diminished breath sounds (bases) Cardiovascular: regular rate and rhythm (no mrg) Gastrointestinal: tender, other (obese, distended, ostomy in place; wound vac in place) Integumentary: normal Extremities: no cyanosis, pink and warm, edema (1+ bilateral LE edema) Neurologic: normal mental status, non-focal exam, pupils equal and round Psychiatric: mood appropriate, affect normal CBC and BMP: 11/12/19 06:00 11/08/19 03:45 ABG, PT/INR, D-dimer: ABG POC ABG pH 7.422 (7.35-7.45) 11/03/19 04:28 ABG pH 7.390 pH Units (7.350-7.450) 10/23/19 04:47 POC ABG pCO2 45.4 (35-45) H 11/03/19 04:28 ABG pCO2 48.4 mm Hg 10/23/19 04:47 POC ABG pO2 83 (80-105) 11/03/19 04:28 ABG pO2 68.9 mm Hg (80.0-90.0) L 10/23/19 04:47 POC ABG HCO3 29.6 (22-26 mml/L) 11/03/19 04:28 POC ABG Total CO2 31 (23-27mmol/L) 11/03/19 04:28 POC ABG O2 Sat 96 11/03/19 04:28 ABG O2 Saturation 96.6 % (95.0-99.0) 10/23/19 04:47 Abnormal lab findings: Abnormal Labs 10/06/19 10/06/19 10/07/19 05:36 05:36 05:54 WBC 21.8 H 21.5 H RBC 3.55 L Hgb 10.9 L Hct 32.7 L MCHC RDW Plt Count Lymph % (Auto) [place] % (Auto) Lymph # [place] # Seg Neutrophils % Seg Neuts % (Manual) 91.0 H Lymphocytes % (Manual) 2.0 L Seg Neutrophils # Seg Neutrophils # Man 19.8 H Lymphocytes # (Manual) 0.4 L Monocytes # (Manual) 1.1 H POC ABG pH ABG pH POC ABG pCO2 POC ABG pO2 ABG pO2 ABG HCO3 ABG Base Excess ABG Hemoglobin Oxyhemoglobin Sodium 135 L Potassium Chloride 95.9 L Carbon Dioxide BUN Creatinine 0.7 L Glucose POC Glucose Calcium Phosphorus Magnesium Direct Bilirubin AST Alkaline Phosphatase C-Reactive Protein Serum Total Protein Total Protein 5.7 L Albumin 2.5 L Prealbumin Rklww-0-Azxqilqpn Jgrvu-3-Jnwpcqbba Gamma Globulins PEP Interpretation Triglycerides Urine pH Urine Creatinine Urine Total Protein Vancomycin Trough Digoxin Crossmatch 10/07/19 10/09/19 10/09/19 05:54 10:52 10:52 WBC 16.6 H RBC Hgb Hct MCHC RDW Plt Count 498 H Lymph % (Auto) [place] % (Auto) Lymph # [place] # Seg Neutrophils % Seg Neuts % (Manual) 93.0 H Lymphocytes % (Manual) 5.0 L Seg Neutrophils # Seg Neutrophils # Man 15.4 H Lymphocytes # (Manual) 0.8 L Monocytes # (Manual) POC ABG pH ABG pH POC ABG pCO2 POC ABG pO2 ABG pO2 ABG HCO3 ABG Base Excess ABG Hemoglobin Oxyhemoglobin Sodium Potassium Chloride 97.9 L Carbon Dioxide 20 L D BUN 23 H Creatinine 1.7 H D Glucose 109 H POC Glucose Calcium 8.1 L Phosphorus Magnesium Direct Bilirubin AST Alkaline Phosphatase C-Reactive Protein Serum Total Protein Total Protein Albumin Prealbumin Nqhpu-5-Emmuhntup Ukjop-4-Wwoymmgre Gamma Globulins PEP Interpretation Triglycerides Urine pH Urine Creatinine Urine Total Protein Vancomycin Trough Digoxin Crossmatch 10/09/19 10/10/19 10/10/19 17:23 05:30 05:30 WBC 14.6 H RBC Hgb 11.1 L Hct 33.5 L MCHC RDW Plt Count 527 H Lymph % (Auto) [place] % (Auto) Lymph # [place] # Seg Neutrophils % Seg Neuts % (Manual) Lymphocytes % (Manual) Seg Neutrophils # Seg Neutrophils # Man Lymphocytes # (Manual) Monocytes # (Manual) POC ABG pH ABG pH POC ABG pCO2 POC ABG pO2 ABG pO2 ABG HCO3 ABG Base Excess ABG Hemoglobin Oxyhemoglobin Sodium 130 L D Potassium 5.1 H Chloride 90.0 L 91.0 L Carbon Dioxide 20 L 20 L BUN 27 H 35 H Creatinine 1.9 H 2.0 H Glucose 104 H POC Glucose Calcium Phosphorus Magnesium Direct Bilirubin AST Alkaline Phosphatase C-Reactive Protein Serum Total Protein Total Protein Albumin Prealbumin Zttrk-2-Sbphdlbaz Ozcjt-6-Qrrwikppb Gamma Globulins PEP Interpretation Triglycerides Urine pH Urine Creatinine Urine Total Protein Vancomycin Trough Digoxin Crossmatch 10/10/19 10/10/19 10/11/19 08:33 08:44 05:41 WBC 13.2 H RBC Hgb 11.3 L Hct 33.8 L MCHC RDW 15.3 H Plt Count 543 H Lymph % (Auto) [place] % (Auto) Lymph # [place] # Seg Neutrophils % Seg Neuts % (Manual) Lymphocytes % (Manual) Seg Neutrophils # Seg Neutrophils # Man Lymphocytes # (Manual) Monocytes # (Manual) POC ABG pH ABG pH POC ABG pCO2 POC ABG pO2 ABG pO2 ABG HCO3 ABG Base Excess ABG Hemoglobin Oxyhemoglobin Sodium Potassium Chloride Carbon Dioxide BUN Creatinine Glucose 113 H POC Glucose 117 H Calcium Phosphorus Magnesium Direct Bilirubin AST Alkaline Phosphatase C-Reactive Protein Serum Total Protein Total Protein Albumin Prealbumin Benqm-2-Rutznyluy Dlgtf-6-Lnorlwgno Gamma Globulins PEP Interpretation Triglycerides Urine pH Urine Creatinine Urine Total Protein Vancomycin Trough Digoxin Crossmatch 10/11/19 10/11/19 10/11/19 05:41 06:23 06:23 WBC RBC Hgb Hct MCHC RDW Plt Count Lymph % (Auto) [place] % (Auto) Lymph # [place] # Seg Neutrophils % Seg Neuts % (Manual) Lymphocytes % (Manual) Seg Neutrophils # Seg Neutrophils # Man Lymphocytes # (Manual) Monocytes # (Manual) POC ABG pH ABG pH POC ABG pCO2 POC ABG pO2 ABG pO2 ABG HCO3 ABG Base Excess ABG Hemoglobin Oxyhemoglobin Sodium 134 L Potassium Chloride 96.3 L Carbon Dioxide BUN 37 H Creatinine Glucose 58 L POC Glucose Calcium Phosphorus 4.90 H Magnesium Direct Bilirubin AST Alkaline Phosphatase C-Reactive Protein Serum Total Protein Total Protein Albumin Prealbumin Xwbho-0-Qxvienxaf Uvxtr-8-Fqmurfkid Gamma Globulins PEP Interpretation Triglycerides Urine pH Urine Creatinine 118.2 H 116.8 H Urine Total Protein 105 H 104 H Vancomycin Trough Digoxin Crossmatch 10/11/19 10/12/19 10/12/19 09:00 06:09 06:09 WBC 13.8 H RBC 3.39 L Hgb 10.2 L Hct 30.9 L MCHC RDW 15.5 H Plt Count 459 H Lymph % (Auto) [place] % (Auto) Lymph # [place] # Seg Neutrophils % Seg Neuts % (Manual) Lymphocytes % (Manual) Seg Neutrophils # Seg Neutrophils # Man Lymphocytes # (Manual) Monocytes # (Manual) POC ABG pH ABG pH POC ABG pCO2 POC ABG pO2 ABG pO2 ABG HCO3 ABG Base Excess ABG Hemoglobin Oxyhemoglobin Sodium 131 L Potassium Chloride 96.2 L Carbon Dioxide 21 L BUN 43 H Creatinine Glucose 72 L POC Glucose Calcium Phosphorus Magnesium Direct Bilirubin AST Alkaline Phosphatase C-Reactive Protein Serum Total Protein 5.2 L Total Protein Albumin 1.9 L Prealbumin Dchlo-7-Mmuyuznqf 0.9 H Liqpk-7-Lhpdfnwya 1.0 H Gamma Globulins 0.7 L PEP Interpretation see below H Triglycerides Urine pH Urine Creatinine Urine Total Protein Vancomycin Trough Digoxin Crossmatch 10/12/19 10/12/19 10/12/19 08:20 09:30 09:30 WBC RBC Hgb Hct MCHC RDW Plt Count Lymph % (Auto) [place] % (Auto) Lymph # [place] # Seg Neutrophils % Seg Neuts % (Manual) Lymphocytes % (Manual) Seg Neutrophils # Seg Neutrophils # Man Lymphocytes # (Manual) Monocytes # (Manual) POC ABG pH ABG pH POC ABG pCO2 POC ABG pO2 63 L ABG pO2 ABG HCO3 ABG Base Excess ABG Hemoglobin Oxyhemoglobin Sodium Potassium Chloride Carbon Dioxide BUN Creatinine Glucose POC Glucose Calcium Phosphorus Magnesium 2.50 H Direct Bilirubin 0.3 H AST Alkaline Phosphatase C-Reactive Protein Serum Total Protein Total Protein 5.1 L Albumin 2.2 L Prealbumin Oerww-3-Ffwwlxavd Fadod-5-Mrnzzpzmo Gamma Globulins PEP Interpretation Triglycerides Urine pH Urine Creatinine Urine Total Protein Vancomycin Trough Digoxin Crossmatch 10/13/19 10/13/19 10/13/19 04:20 04:20 13:20 WBC 15.7 H RBC 3.64 L Hgb 10.9 L Hct 33.1 L MCHC RDW 15.8 H Plt Count 488 H Lymph % (Auto) [place] % (Auto) Lymph # [place] # Seg Neutrophils % Seg Neuts % (Manual) Lymphocytes % (Manual) Seg Neutrophils # Seg Neutrophils # Man Lymphocytes # (Manual) Monocytes # (Manual) POC ABG pH ABG pH POC ABG pCO2 POC ABG pO2 ABG pO2 ABG HCO3 ABG Base Excess ABG Hemoglobin Oxyhemoglobin Sodium Potassium Chloride Carbon Dioxide BUN 28 H Creatinine Glucose POC Glucose Calcium Phosphorus Magnesium Direct Bilirubin AST Alkaline Phosphatase C-Reactive Protein Serum Total Protein Total Protein Albumin Prealbumin Hcadp-7-Knsgnmols Stbgs-4-Nlsmqwtpw Gamma Globulins PEP Interpretation Triglycerides Urine pH Urine Creatinine Urine Total Protein Vancomycin Trough Digoxin Crossmatch See Detail 10/13/19 10/13/19 10/14/19 18:24 20:05 04:47 WBC 24.2 H RBC Hgb 10.9 L Hct 34.2 L MCHC RDW 17.0 H Plt Count 442 H Lymph % (Auto) [place] % (Auto) Lymph # [place] # Seg Neutrophils % Seg Neuts % (Manual) Lymphocytes % (Manual) Seg Neutrophils # Seg Neutrophils # Man Lymphocytes # (Manual) Monocytes # (Manual) POC ABG pH ABG pH 7.180 L* 7.278 L POC ABG pCO2 POC ABG pO2 ABG pO2 130.7 H ABG HCO3 ABG Base Excess -6.5 L -6.5 L ABG Hemoglobin 12.2 L 12.3 L Oxyhemoglobin 92.9 L Sodium Potassium Chloride Carbon Dioxide BUN Creatinine Glucose POC Glucose Calcium Phosphorus Magnesium Direct Bilirubin AST Alkaline Phosphatase C-Reactive Protein Serum Total Protein Total Protein Albumin Prealbumin Wcmtg-5-Ylmakyoeh Vhtlb-8-Viiunfnhg Gamma Globulins PEP Interpretation Triglycerides Urine pH Urine Creatinine Urine Total Protein Vancomycin Trough Digoxin Crossmatch 10/14/19 10/14/19 10/14/19 04:47 05:40 10:14 WBC RBC Hgb Hct MCHC RDW Plt Count Lymph % (Auto) [place] % (Auto) Lymph # [place] # Seg Neutrophils % Seg Neuts % (Manual) Lymphocytes % (Manual) Seg Neutrophils # Seg Neutrophils # Man Lymphocytes # (Manual) Monocytes # (Manual) POC ABG pH ABG pH POC ABG pCO2 POC ABG pO2 ABG pO2 76.3 L ABG HCO3 19.1 L ABG Base Excess -5.8 L ABG Hemoglobin 10.9 L Oxyhemoglobin 93.4 L Sodium Potassium 5.1 H D Chloride 109.2 H Carbon Dioxide 17 L BUN 38 H Creatinine 1.8 H D Glucose 104 H POC Glucose Calcium 7.4 L Phosphorus 5.60 H Magnesium Direct Bilirubin AST Alkaline Phosphatase C-Reactive Protein Serum Total Protein Total Protein Albumin Prealbumin Lgwsl-6-Wiqixdwdv Yrfcx-9-Zvuuojuem Gamma Globulins PEP Interpretation Triglycerides Urine pH Urine Creatinine Urine Total Protein Vancomycin Trough Digoxin Crossmatch 10/14/19 10/15/19 10/15/19 23:46 04:32 04:32 WBC 15.5 H RBC 2.89 L Hgb 8.8 L Hct 27.3 L D MCHC RDW 16.6 H Plt Count Lymph % (Auto) [place] % (Auto) Lymph # [place] # Seg Neutrophils % Seg Neuts % (Manual) Lymphocytes % (Manual) Seg Neutrophils # Seg Neutrophils # Man Lymphocytes # (Manual) Monocytes # (Manual) POC ABG pH ABG pH POC ABG pCO2 POC ABG pO2 ABG pO2 ABG HCO3 ABG Base Excess ABG Hemoglobin Oxyhemoglobin Sodium 147 H Potassium Chloride 114.0 H Carbon Dioxide 19 L BUN 42 H Creatinine Glucose 112 H POC Glucose 113 H Calcium 7.3 L Phosphorus Magnesium Direct Bilirubin AST 72 H Alkaline Phosphatase C-Reactive Protein 30.60 H Serum Total Protein Total Protein 4.0 L D Albumin 1.7 L Prealbumin 0.030 L Ezhuz-1-Luningfwk Fnvvf-8-Gjrhtrija Gamma Globulins PEP Interpretation Triglycerides Urine pH Urine Creatinine Urine Total Protein Vancomycin Trough Digoxin Crossmatch 10/15/19 10/15/19 10/15/19 05:30 12:08 17:23 WBC RBC Hgb Hct MCHC RDW Plt Count Lymph % (Auto) [place] % (Auto) Lymph # [place] # Seg Neutrophils % Seg Neuts % (Manual) Lymphocytes % (Manual) Seg Neutrophils # Seg Neutrophils # Man Lymphocytes # (Manual) Monocytes # (Manual) POC ABG pH ABG pH 7.296 L POC ABG pCO2 POC ABG pO2 ABG pO2 114.7 H ABG HCO3 ABG Base Excess -3.7 L ABG Hemoglobin 8.9 L Oxyhemoglobin Sodium Potassium Chloride Carbon Dioxide BUN Creatinine Glucose POC Glucose 106 H 106 H Calcium Phosphorus Magnesium Direct Bilirubin AST Alkaline Phosphatase C-Reactive Protein Serum Total Protein Total Protein Albumin Prealbumin Zwkbq-8-Djklnqkzf Fvxve-8-Hpwnlloax Gamma Globulins PEP Interpretation Triglycerides Urine pH Urine Creatinine Urine Total Protein Vancomycin Trough Digoxin Crossmatch 10/16/19 10/16/19 10/16/19 00:07 04:44 05:24 WBC RBC Hgb Hct MCHC RDW Plt Count Lymph % (Auto) [place] % (Auto) Lymph # [place] # Seg Neutrophils % Seg Neuts % (Manual) Lymphocytes % (Manual) Seg Neutrophils # Seg Neutrophils # Man Lymphocytes # (Manual) Monocytes # (Manual) POC ABG pH ABG pH POC ABG pCO2 POC ABG pO2 ABG pO2 ABG HCO3 ABG Base Excess ABG Hemoglobin Oxyhemoglobin Sodium 150 H Potassium Chloride 115.8 H Carbon Dioxide BUN 35 H Creatinine Glucose 129 H POC Glucose 119 H 129 H Calcium 7.3 L Phosphorus 1.80 L D Magnesium Direct Bilirubin AST Alkaline Phosphatase C-Reactive Protein Serum Total Protein Total Protein Albumin Prealbumin Evatx-8-Wltmhfjzg Xjhum-3-Ufpqmkwpt Gamma Globulins PEP Interpretation Triglycerides Urine pH Urine Creatinine Urine Total Protein Vancomycin Trough Digoxin Crossmatch 10/16/19 10/16/19 10/16/19 06:53 09:20 11:58 WBC 14.6 H RBC 2.70 L Hgb 8.1 L Hct 25.2 L MCHC RDW 16.7 H Plt Count Lymph % (Auto) [place] % (Auto) Lymph # [place] # Seg Neutrophils % Seg Neuts % (Manual) 79.0 H Lymphocytes % (Manual) 4.0 L Seg Neutrophils # Seg Neutrophils # Man 11.5 H Lymphocytes # (Manual) 0.6 L Monocytes # (Manual) POC ABG pH ABG pH POC ABG pCO2 47.0 H POC ABG pO2 ABG pO2 ABG HCO3 ABG Base Excess ABG Hemoglobin Oxyhemoglobin Sodium Potassium Chloride Carbon Dioxide BUN Creatinine Glucose POC Glucose Calcium Phosphorus Magnesium Direct Bilirubin AST Alkaline Phosphatase C-Reactive Protein Serum Total Protein Total Protein Albumin Prealbumin Ndrqi-9-Xdzcqsraz Ykirq-7-Nqfbxeqcx Gamma Globulins PEP Interpretation Triglycerides Urine pH Urine Creatinine Urine Total Protein Vancomycin Trough Digoxin Crossmatch See Detail 10/16/19 10/16/19 10/16/19 15:23 17:50 23:58 WBC RBC Hgb Hct MCHC RDW Plt Count Lymph % (Auto) [place] % (Auto) Lymph # [place] # Seg Neutrophils % Seg Neuts % (Manual) Lymphocytes % (Manual) Seg Neutrophils # Seg Neutrophils # Man Lymphocytes # (Manual) Monocytes # (Manual) POC ABG pH ABG pH POC ABG pCO2 POC ABG pO2 ABG pO2 ABG HCO3 ABG Base Excess ABG Hemoglobin Oxyhemoglobin Sodium Potassium Chloride Carbon Dioxide BUN Creatinine Glucose POC Glucose 221 H 201 H 179 H Calcium Phosphorus Magnesium Direct Bilirubin AST Alkaline Phosphatase C-Reactive Protein Serum Total Protein Total Protein Albumin Prealbumin Rsume-4-Afwgsqsdz Tugar-6-Ykvstfcvb Gamma Globulins PEP Interpretation Triglycerides Urine pH Urine Creatinine Urine Total Protein Vancomycin Trough Digoxin Crossmatch 10/17/19 10/17/19 10/17/19 04:08 04:08 05:41 WBC 22.3 H RBC 3.35 L Hgb 10.0 L Hct 31.2 L D MCHC RDW 16.1 H Plt Count Lymph % (Auto) [place] % (Auto) Lymph # [place] # Seg Neutrophils % Seg Neuts % (Manual) Lymphocytes % (Manual) Seg Neutrophils # Seg Neutrophils # Man Lymphocytes # (Manual) Monocytes # (Manual) POC ABG pH 7.310 L ABG pH POC ABG pCO2 52.8 H POC ABG pO2 70 L ABG pO2 ABG HCO3 ABG Base Excess ABG Hemoglobin Oxyhemoglobin Sodium 147 H Potassium Chloride 114.9 H Carbon Dioxide BUN 36 H Creatinine Glucose 165 H POC Glucose Calcium 6.9 L Phosphorus 2.20 L D Magnesium Direct Bilirubin AST Alkaline Phosphatase C-Reactive Protein Serum Total Protein Total Protein Albumin Prealbumin Gawnj-7-Nbblqojqo Ufxqu-6-Rujkrfcmp Gamma Globulins PEP Interpretation Triglycerides Urine pH Urine Creatinine Urine Total Protein Vancomycin Trough Digoxin Crossmatch 10/17/19 10/17/19 10/17/19 05:42 11:33 18:17 WBC RBC Hgb Hct MCHC RDW Plt Count Lymph % (Auto) [place] % (Auto) Lymph # [place] # Seg Neutrophils % Seg Neuts % (Manual) Lymphocytes % (Manual) Seg Neutrophils # Seg Neutrophils # Man Lymphocytes # (Manual) Monocytes # (Manual) POC ABG pH ABG pH POC ABG pCO2 POC ABG pO2 ABG pO2 ABG HCO3 ABG Base Excess ABG Hemoglobin Oxyhemoglobin Sodium Potassium Chloride Carbon Dioxide BUN Creatinine Glucose POC Glucose 149 H 154 H 163 H Calcium Phosphorus Magnesium Direct Bilirubin AST Alkaline Phosphatase C-Reactive Protein Serum Total Protein Total Protein Albumin Prealbumin Jxlvt-1-Hwcpyyrfb [place]-9-Oxxhrbtrg Gamma Globulins PEP Interpretation Triglycerides Urine pH Urine Creatinine Urine Total Protein Vancomycin Trough Digoxin Crossmatch 10/17/19 10/18/19 10/18/19 23:34 03:29 04:50 WBC RBC Hgb Hct MCHC RDW Plt Count Lymph % (Auto) [place] % (Auto) Lymph # [place] # Seg Neutrophils % Seg Neuts % (Manual) Lymphocytes % (Manual) Seg Neutrophils # Seg Neutrophils # Man Lymphocytes # (Manual) Monocytes # (Manual) POC ABG pH ABG pH POC ABG pCO2 POC ABG pO2 ABG pO2 78.8 L ABG HCO3 ABG Base Excess ABG Hemoglobin 8.8 L Oxyhemoglobin Sodium Potassium Chloride 111.8 H Carbon Dioxide BUN 27 H Creatinine 0.6 L Glucose 140 H POC Glucose 135 H Calcium 7.1 L Phosphorus 1.80 L Magnesium Direct Bilirubin AST Alkaline Phosphatase C-Reactive Protein Serum Total Protein Total Protein Albumin Prealbumin Kstkk-7-Zfpjqeuim Ddlba-7-[place] Gamma Globulins PEP Interpretation Triglycerides Urine pH Urine Creatinine Urine Total Protein Vancomycin Trough Digoxin Crossmatch 10/18/19 10/18/19 10/18/19 05:45 11:19 18:26 WBC RBC Hgb Hct MCHC RDW Plt Count Lymph % (Auto) [place] % (Auto) Lymph # [place] # Seg Neutrophils % Seg Neuts % (Manual) Lymphocytes % (Manual) Seg Neutrophils # Seg Neutrophils # Man Lymphocytes # (Manual) Monocytes # (Manual) POC ABG pH ABG pH POC ABG pCO2 POC ABG pO2 ABG pO2 ABG HCO3 ABG Base Excess ABG Hemoglobin Oxyhemoglobin Sodium Potassium Chloride Carbon Dioxide BUN Creatinine Glucose POC Glucose 145 H 152 H 125 H Calcium Phosphorus Magnesium Direct Bilirubin AST Alkaline Phosphatase C-Reactive Protein Serum Total Protein Total Protein Albumin Prealbumin Uvhav-3-Jndytcauc Xjude-3-Btbihikfp Gamma Globulins PEP Interpretation Triglycerides Urine pH Urine Creatinine Urine Total Protein Vancomycin Trough Digoxin Crossmatch 10/18/19 10/19/19 10/19/19 23:27 04:21 04:21 WBC RBC Hgb Hct MCHC RDW Plt Count Lymph % (Auto) [place] % (Auto) Lymph # [place] # Seg Neutrophils % Seg Neuts % (Manual) Lymphocytes % (Manual) Seg Neutrophils # Seg Neutrophils # Man Lymphocytes # (Manual) Monocytes # (Manual) POC ABG pH ABG pH POC ABG pCO2 POC ABG pO2 ABG pO2 ABG HCO3 ABG Base Excess ABG Hemoglobin Oxyhemoglobin Sodium Potassium Chloride 108.4 H Carbon Dioxide BUN 22 H Creatinine 0.5 L Glucose 123 H POC Glucose 127 H Calcium 7.4 L Phosphorus 1.80 L Magnesium Direct Bilirubin AST Alkaline Phosphatase C-Reactive Protein Serum Total Protein Total Protein Albumin Prealbumin Gnoox-4-Jmnnkqstm Jajto-8-Tvlhlxzkx Gamma Globulins PEP Interpretation Triglycerides Urine pH Urine Creatinine Urine Total Protein Vancomycin Trough Digoxin 0.7 L Crossmatch 10/19/19 10/19/19 10/19/19 05:00 05:35 11:26 WBC RBC Hgb Hct MCHC RDW Plt Count Lymph % (Auto) [place] % (Auto) Lymph # [place] # Seg Neutrophils % Seg Neuts % (Manual) Lymphocytes % (Manual) Seg Neutrophils # Seg Neutrophils # Man Lymphocytes # (Manual) Monocytes # (Manual) POC ABG pH ABG pH 7.456 H POC ABG pCO2 POC ABG pO2 ABG pO2 78.8 L ABG HCO3 ABG Base Excess ABG Hemoglobin 5.6 L Oxyhemoglobin Sodium Potassium Chloride Carbon Dioxide BUN Creatinine Glucose POC Glucose 124 H 111 H Calcium Phosphorus Magnesium Direct Bilirubin AST Alkaline Phosphatase C-Reactive Protein Serum Total Protein Total Protein Albumin Prealbumin Ztwqu-0-Zisymznif Nguyr-8-Anreeixfn Gamma Globulins PEP Interpretation Triglycerides Urine pH Urine Creatinine Urine Total Protein Vancomycin Trough Digoxin Crossmatch 10/19/19 10/20/19 10/20/19 23:23 04:50 05:17 WBC RBC Hgb Hct MCHC RDW Plt Count Lymph % (Auto) [place] % (Auto) Lymph # [place] # Seg Neutrophils % Seg Neuts % (Manual) Lymphocytes % (Manual) Seg Neutrophils # Seg Neutrophils # Man Lymphocytes # (Manual) Monocytes # (Manual) POC ABG pH ABG pH POC ABG pCO2 POC ABG pO2 ABG pO2 ABG HCO3 ABG Base Excess ABG Hemoglobin Oxyhemoglobin Sodium Potassium Chloride 108.1 H Carbon Dioxide BUN Creatinine 0.4 L Glucose 134 H POC Glucose 129 H 123 H Calcium 7.1 L Phosphorus Magnesium Direct Bilirubin AST Alkaline Phosphatase C-Reactive Protein Serum Total Protein Total Protein Albumin Prealbumin Hsxgf-7-Lbviuymvz Hkcfg-1-Fxpodvdzd Gamma Globulins PEP Interpretation Triglycerides Urine pH Urine Creatinine Urine Total Protein Vancomycin Trough Digoxin Crossmatch 10/20/19 10/20/19 10/21/19 11:40 19:06 05:08 WBC RBC Hgb Hct MCHC RDW Plt Count Lymph % (Auto) [place] % (Auto) Lymph # [place] # Seg Neutrophils % Seg Neuts % (Manual) Lymphocytes % (Manual) Seg Neutrophils # Seg Neutrophils # Man Lymphocytes # (Manual) Monocytes # (Manual) POC ABG pH ABG pH POC ABG pCO2 POC ABG pO2 ABG pO2 ABG HCO3 ABG Base Excess ABG Hemoglobin Oxyhemoglobin Sodium Potassium Chloride Carbon Dioxide BUN Creatinine Glucose POC Glucose 139 H 117 H 131 H Calcium Phosphorus Magnesium Direct Bilirubin AST Alkaline Phosphatase C-Reactive Protein Serum Total Protein Total Protein Albumin Prealbumin Nfiwv-2-Obgztgldl Duwuq-8-Enkhjorso Gamma Globulins PEP Interpretation Triglycerides Urine pH Urine Creatinine Urine Total Protein Vancomycin Trough Digoxin Crossmatch 10/21/19 10/21/19 10/21/19 05:30 12:04 17:31 WBC RBC Hgb Hct MCHC RDW Plt Count Lymph % (Auto) [place] % (Auto) Lymph # [place] # Seg Neutrophils % Seg Neuts % (Manual) Lymphocytes % (Manual) Seg Neutrophils # Seg Neutrophils # Man Lymphocytes # (Manual) Monocytes # (Manual) POC ABG pH ABG pH POC ABG pCO2 POC ABG pO2 ABG pO2 ABG HCO3 ABG Base Excess ABG Hemoglobin Oxyhemoglobin Sodium Potassium Chloride 107.8 H Carbon Dioxide BUN Creatinine 0.5 L Glucose 119 H POC Glucose 119 H 110 H Calcium 7.6 L Phosphorus Magnesium Direct Bilirubin AST Alkaline Phosphatase C-Reactive Protein Serum Total Protein Total Protein Albumin Prealbumin Mwchw-8-Zpnyjssyx Xmsrg-4-Bkzwrbxtj Gamma Globulins PEP Interpretation Triglycerides Urine pH Urine Creatinine Urine Total Protein Vancomycin Trough Digoxin Crossmatch 10/22/19 10/22/19 10/22/19 05:14 05:37 12:07 WBC RBC Hgb Hct MCHC RDW Plt Count Lymph % (Auto) [place] % (Auto) Lymph # [place] # Seg Neutrophils % Seg Neuts % (Manual) Lymphocytes % (Manual) Seg Neutrophils # Seg Neutrophils # Man Lymphocytes # (Manual) Monocytes # (Manual) POC ABG pH ABG pH POC ABG pCO2 POC ABG pO2 ABG pO2 ABG HCO3 ABG Base Excess ABG Hemoglobin Oxyhemoglobin Sodium Potassium Chloride Carbon Dioxide BUN Creatinine 0.5 L Glucose 116 H POC Glucose 110 H 126 H Calcium 7.7 L Phosphorus Magnesium Direct Bilirubin AST Alkaline Phosphatase C-Reactive Protein Serum Total Protein Total Protein Albumin Prealbumin Iewjx-1-Cpufcolqb Jmvuv-6-Drsyrystn Gamma Globulins PEP Interpretation Triglycerides Urine pH Urine Creatinine Urine Total Protein Vancomycin Trough Digoxin Crossmatch 10/22/19 10/22/19 10/23/19 18:36 23:19 04:39 WBC RBC Hgb Hct MCHC RDW Plt Count Lymph % (Auto) [place] % (Auto) Lymph # [place] # Seg Neutrophils % Seg Neuts % (Manual) Lymphocytes % (Manual) Seg Neutrophils # Seg Neutrophils # Man Lymphocytes # (Manual) Monocytes # (Manual) POC ABG pH ABG pH POC ABG pCO2 POC ABG pO2 ABG pO2 ABG HCO3 ABG Base Excess ABG Hemoglobin Oxyhemoglobin Sodium Potassium Chloride Carbon Dioxide BUN Creatinine Glucose POC Glucose 120 H 127 H 112 H Calcium Phosphorus Magnesium Direct Bilirubin AST Alkaline Phosphatase C-Reactive Protein Serum Total Protein Total Protein Albumin Prealbumin Xqpwn-9-Hkhepgufn Uedtb-1-Jdmkmkhvu Gamma Globulins PEP Interpretation Triglycerides Urine pH Urine Creatinine Urine Total Protein Vancomycin Trough Digoxin Crossmatch 10/23/19 10/23/19 10/23/19 04:47 05:15 10:44 WBC 18.3 H RBC 2.33 L Hgb 7.0 L Hct 21.5 L MCHC RDW 16.2 H Plt Count Lymph % (Auto) 4.9 L [place] % (Auto) 8.1 H Lymph # 0.9 L [place] # 1.5 H Seg Neutrophils % 86.7 H Seg Neuts % (Manual) Lymphocytes % (Manual) Seg Neutrophils # 15.9 H Seg Neutrophils # Man Lymphocytes # (Manual) Monocytes # (Manual) POC ABG pH ABG pH POC ABG pCO2 POC ABG pO2 ABG pO2 68.9 L ABG HCO3 28.7 H ABG Base Excess 3.4 H ABG Hemoglobin 6.6 L Oxyhemoglobin 94.1 L Sodium Potassium Chloride Carbon Dioxide BUN Creatinine 0.5 L Glucose 165 H POC Glucose Calcium 7.4 L Phosphorus Magnesium Direct Bilirubin AST Alkaline Phosphatase C-Reactive Protein Serum Total Protein Total Protein Albumin Prealbumin Xdqcu-2-Oqridsvxu Dxddp-0-Daenyuxbb Gamma Globulins PEP Interpretation Triglycerides Urine pH Urine Creatinine Urine Total Protein Vancomycin Trough Digoxin Crossmatch 10/23/19 10/23/19 10/23/19 10:44 11:46 11:50 WBC RBC Hgb Hct MCHC RDW Plt Count Lymph % (Auto) [place] % (Auto) Lymph # [place] # Seg Neutrophils % Seg Neuts % (Manual) Lymphocytes % (Manual) Seg Neutrophils # Seg Neutrophils # Man Lymphocytes # (Manual) Monocytes # (Manual) POC ABG pH ABG pH POC ABG pCO2 POC ABG pO2 ABG pO2 ABG HCO3 ABG Base Excess ABG Hemoglobin Oxyhemoglobin Sodium Potassium Chloride Carbon Dioxide BUN Creatinine Glucose POC Glucose 138 H Calcium Phosphorus Magnesium Direct Bilirubin 0.7 H AST Alkaline Phosphatase C-Reactive Protein Serum Total Protein Total Protein 4.5 L Albumin 1.2 L Prealbumin Jzwyf-0-Qnkykhclq Ctbmc-0-Zuowqxvqq Gamma Globulins PEP Interpretation Triglycerides Urine pH Urine Creatinine Urine Total Protein Vancomycin Trough Digoxin Crossmatch See Detail 10/23/19 10/24/19 10/24/19 17:53 00:07 05:05 WBC RBC Hgb Hct MCHC RDW Plt Count Lymph % (Auto) [place] % (Auto) Lymph # [place] # Seg Neutrophils % Seg Neuts % (Manual) Lymphocytes % (Manual) Seg Neutrophils # Seg Neutrophils # Man Lymphocytes # (Manual) Monocytes # (Manual) POC ABG pH ABG pH POC ABG pCO2 POC ABG pO2 ABG pO2 ABG HCO3 ABG Base Excess ABG Hemoglobin Oxyhemoglobin Sodium Potassium 3.5 L Chloride Carbon Dioxide BUN Creatinine 0.5 L Glucose 116 H POC Glucose 137 H 110 H Calcium 8.0 L Phosphorus Magnesium Direct Bilirubin AST Alkaline Phosphatase C-Reactive Protein Serum Total Protein Total Protein Albumin Prealbumin Bbbdv-4-Oahdiycub Sjjmm-1-Mbdfsjjlp Gamma Globulins PEP Interpretation Triglycerides Urine pH Urine Creatinine Urine Total Protein Vancomycin Trough Digoxin Crossmatch 10/24/19 10/24/19 10/24/19 05:05 11:56 13:00 WBC 13.0 H RBC 2.73 L Hgb 8.0 L Hct 24.2 L MCHC RDW 17.9 H Plt Count Lymph % (Auto) 7.0 L [place] % (Auto) 9.5 H Lymph # 0.9 L [place] # 1.2 H Seg Neutrophils % 82.7 H Seg Neuts % (Manual) Lymphocytes % (Manual) Seg Neutrophils # 10.7 H Seg Neutrophils # Man Lymphocytes # (Manual) Monocytes # (Manual) POC ABG pH ABG pH POC ABG pCO2 POC ABG pO2 ABG pO2 ABG HCO3 ABG Base Excess ABG Hemoglobin Oxyhemoglobin Sodium Potassium Chloride Carbon Dioxide BUN Creatinine Glucose POC Glucose 159 H Calcium Phosphorus Magnesium Direct Bilirubin AST Alkaline Phosphatase C-Reactive Protein Serum Total Protein Total Protein Albumin Prealbumin Vxmbg-8-Bgkohaksx Udxja-5-Xuiygwfvq Gamma Globulins PEP Interpretation Triglycerides 216 H Urine pH Urine Creatinine Urine Total Protein Vancomycin Trough Digoxin Crossmatch 10/24/19 10/24/19 10/25/19 17:42 23:45 04:19 WBC RBC Hgb Hct MCHC RDW Plt Count Lymph % (Auto) [place] % (Auto) Lymph # [place] # Seg Neutrophils % Seg Neuts % (Manual) Lymphocytes % (Manual) Seg Neutrophils # Seg Neutrophils # Man Lymphocytes # (Manual) Monocytes # (Manual) POC ABG pH ABG pH POC ABG pCO2 POC ABG pO2 ABG pO2 ABG HCO3 ABG Base Excess ABG Hemoglobin Oxyhemoglobin Sodium 147 H Potassium Chloride Carbon Dioxide 33 H BUN Creatinine 0.5 L Glucose 111 H POC Glucose 120 H 116 H Calcium Phosphorus Magnesium Direct Bilirubin AST Alkaline Phosphatase C-Reactive Protein Serum Total Protein Total Protein 5.7 L D Albumin 2.5 L Prealbumin Fiayw-0-Qpduhyfuv Vrdcy-6-Grfxroovn Gamma Globulins PEP Interpretation Triglycerides 230 H Urine pH Urine Creatinine Urine Total Protein Vancomycin Trough Digoxin Crossmatch 10/25/19 10/25/19 10/25/19 04:19 05:31 12:20 WBC RBC 2.69 L Hgb 8.1 L Hct 23.9 L MCHC RDW 17.3 H Plt Count Lymph % (Auto) [place] % (Auto) Lymph # [place] # Seg Neutrophils % Seg Neuts % (Manual) Lymphocytes % (Manual) Seg Neutrophils # Seg Neutrophils # Man Lymphocytes # (Manual) Monocytes # (Manual) POC ABG pH ABG pH POC ABG pCO2 POC ABG pO2 ABG pO2 ABG HCO3 ABG Base Excess ABG Hemoglobin Oxyhemoglobin Sodium Potassium Chloride Carbon Dioxide BUN Creatinine Glucose POC Glucose 126 H 114 H Calcium Phosphorus Magnesium Direct Bilirubin AST Alkaline Phosphatase C-Reactive Protein Serum Total Protein Total Protein Albumin Prealbumin Tyosp-6-Gpjruxeea Zszct-9-Etyiaqkpj Gamma Globulins PEP Interpretation Triglycerides Urine pH Urine Creatinine Urine Total Protein Vancomycin Trough Digoxin Crossmatch 10/25/19 10/25/19 10/26/19 18:30 23:09 06:15 WBC RBC Hgb Hct MCHC RDW Plt Count Lymph % (Auto) [place] % (Auto) Lymph # [place] # Seg Neutrophils % Seg Neuts % (Manual) Lymphocytes % (Manual) Seg Neutrophils # Seg Neutrophils # Man Lymphocytes # (Manual) Monocytes # (Manual) POC ABG pH ABG pH POC ABG pCO2 POC ABG pO2 ABG pO2 ABG HCO3 ABG Base Excess ABG Hemoglobin Oxyhemoglobin Sodium Potassium 3.5 L Chloride Carbon Dioxide BUN Creatinine 0.5 L Glucose 112 H POC Glucose 121 H 107 H Calcium 8.3 L Phosphorus Magnesium Direct Bilirubin AST Alkaline Phosphatase 148 H C-Reactive Protein Serum Total Protein Total Protein 5.9 L Albumin 2.4 L Prealbumin Kzish-5-Nwihmpxtm Ggaqq-7-Vyvztfmmy Gamma Globulins PEP Interpretation Triglycerides Urine pH Urine Creatinine Urine Total Protein Vancomycin Trough Digoxin Crossmatch 10/26/19 10/26/19 10/26/19 06:15 12:21 17:35 WBC RBC Hgb Hct MCHC RDW Plt Count Lymph % (Auto) [place] % (Auto) Lymph # [place] # Seg Neutrophils % Seg Neuts % (Manual) Lymphocytes % (Manual) Seg Neutrophils # Seg Neutrophils # Man Lymphocytes # (Manual) Monocytes # (Manual) POC ABG pH ABG pH POC ABG pCO2 POC ABG pO2 ABG pO2 ABG HCO3 ABG Base Excess ABG Hemoglobin Oxyhemoglobin Sodium Potassium Chloride Carbon Dioxide BUN Creatinine Glucose POC Glucose 134 H 141 H Calcium Phosphorus Magnesium Direct Bilirubin AST Alkaline Phosphatase C-Reactive Protein Serum Total Protein Total Protein Albumin Prealbumin Wxblq-4-Hwmtcmdtw Tqlwd-1-Bttjjbfld Gamma Globulins PEP Interpretation Triglycerides 185 H Urine pH Urine Creatinine Urine Total Protein Vancomycin Trough Digoxin Crossmatch 10/26/19 10/27/19 10/27/19 Unknown 04:30 11:33 WBC RBC Hgb Hct MCHC RDW Plt Count Lymph % (Auto) [place] % (Auto) Lymph # [place] # Seg Neutrophils % Seg Neuts % (Manual) Lymphocytes % (Manual) Seg Neutrophils # Seg Neutrophils # Man Lymphocytes # (Manual) Monocytes # (Manual) POC ABG pH ABG pH POC ABG pCO2 POC ABG pO2 ABG pO2 ABG HCO3 ABG Base Excess ABG Hemoglobin Oxyhemoglobin Sodium Potassium 3.2 L Chloride Carbon Dioxide BUN 23 H Creatinine 0.6 L Glucose 130 H POC Glucose 131 H Calcium 7.9 L Phosphorus Magnesium Direct Bilirubin AST Alkaline Phosphatase C-Reactive Protein Serum Total Protein Total Protein Albumin Prealbumin Vcuur-4-Gvdhxwmys Kybaq-4-Dchverxrx Gamma Globulins PEP Interpretation Triglycerides Urine pH 9.0 H Urine Creatinine Urine Total Protein Vancomycin Trough Digoxin Crossmatch 10/27/19 10/28/19 10/28/19 17:45 05:25 05:49 WBC RBC 2.85 L Hgb 8.3 L Hct 26.8 L MCHC 31 L RDW 17.4 H Plt Count Lymph % (Auto) 8.9 L [place] % (Auto) 14.3 H Lymph # 0.8 L [place] # 1.3 H Seg Neutrophils % 76.5 H Seg Neuts % (Manual) Lymphocytes % (Manual) Seg Neutrophils # Seg Neutrophils # Man Lymphocytes # (Manual) Monocytes # (Manual) POC ABG pH ABG pH POC ABG pCO2 POC ABG pO2 ABG pO2 ABG HCO3 ABG Base Excess ABG Hemoglobin Oxyhemoglobin Sodium Potassium Chloride Carbon Dioxide BUN Creatinine Glucose POC Glucose 121 H 120 H Calcium Phosphorus Magnesium Direct Bilirubin AST Alkaline Phosphatase C-Reactive Protein Serum Total Protein Total Protein Albumin Prealbumin Jkezs-8-Ubbojcbvi Skcsi-1-Imqtzluwz Gamma Globulins PEP Interpretation Triglycerides Urine pH Urine Creatinine Urine Total Protein Vancomycin Trough Digoxin Crossmatch 10/28/19 10/28/19 10/28/19 07:19 12:07 18:21 WBC RBC Hgb Hct MCHC RDW Plt Count Lymph % (Auto) [place] % (Auto) Lymph # [place] # Seg Neutrophils % Seg Neuts % (Manual) Lymphocytes % (Manual) Seg Neutrophils # Seg Neutrophils # Man Lymphocytes # (Manual) Monocytes # (Manual) POC ABG pH ABG pH POC ABG pCO2 POC ABG pO2 ABG pO2 ABG HCO3 ABG Base Excess ABG Hemoglobin Oxyhemoglobin Sodium Potassium Chloride Carbon Dioxide BUN 23 H Creatinine 0.5 L Glucose 129 H POC Glucose 127 H 130 H Calcium 8.0 L Phosphorus Magnesium Direct Bilirubin AST Alkaline Phosphatase C-Reactive Protein Serum Total Protein Total Protein Albumin Prealbumin Qtveu-8-Hyukddrrk Skazu-7-Cmubyyczz Gamma Globulins PEP Interpretation Triglycerides Urine pH Urine Creatinine Urine Total Protein Vancomycin Trough Digoxin Crossmatch 10/28/19 10/29/19 10/29/19 23:30 05:30 05:30 WBC 11.2 H RBC 3.36 L Hgb 9.7 L Hct 29.4 L MCHC RDW 16.7 H Plt Count Lymph % (Auto) [place] % (Auto) 16.0 H Lymph # [place] # 1.8 H Seg Neutrophils % 70.2 H Seg Neuts % (Manual) Lymphocytes % (Manual) Seg Neutrophils # 7.9 H Seg Neutrophils # Man Lymphocytes # (Manual) Monocytes # (Manual) POC ABG pH ABG pH POC ABG pCO2 POC ABG pO2 ABG pO2 ABG HCO3 ABG Base Excess ABG Hemoglobin Oxyhemoglobin Sodium Potassium Chloride Carbon Dioxide BUN 23 H Creatinine 0.5 L Glucose POC Glucose 130 H Calcium 8.3 L Phosphorus Magnesium Direct Bilirubin AST Alkaline Phosphatase C-Reactive Protein Serum Total Protein Total Protein Albumin Prealbumin Cmgbq-4-Mylvwagtm Hmsxo-1-Kaifgxheu Gamma Globulins PEP Interpretation Triglycerides Urine pH Urine Creatinine Urine Total Protein Vancomycin Trough Digoxin Crossmatch 10/29/19 10/29/19 10/29/19 05:52 13:10 18:02 WBC RBC Hgb Hct MCHC RDW Plt Count Lymph % (Auto) [place] % (Auto) Lymph # [place] # Seg Neutrophils % Seg Neuts % (Manual) Lymphocytes % (Manual) Seg Neutrophils # Seg Neutrophils # Man Lymphocytes # (Manual) Monocytes # (Manual) POC ABG pH ABG pH POC ABG pCO2 POC ABG pO2 ABG pO2 ABG HCO3 ABG Base Excess ABG Hemoglobin Oxyhemoglobin Sodium Potassium Chloride Carbon Dioxide BUN Creatinine Glucose POC Glucose 111 H 140 H 140 H Calcium Phosphorus Magnesium Direct Bilirubin AST Alkaline Phosphatase C-Reactive Protein Serum Total Protein Total Protein Albumin Prealbumin Zjdfs-0-Ptatdebzs Kczpz-2-Pvsmpmybm Gamma Globulins PEP Interpretation Triglycerides Urine pH Urine Creatinine Urine Total Protein Vancomycin Trough Digoxin Crossmatch 10/29/19 10/30/19 10/30/19 23:58 01:05 05:15 WBC RBC Hgb Hct MCHC RDW Plt Count Lymph % (Auto) [place] % (Auto) Lymph # [place] # Seg Neutrophils % Seg Neuts % (Manual) Lymphocytes % (Manual) Seg Neutrophils # Seg Neutrophils # Man Lymphocytes # (Manual) Monocytes # (Manual) POC ABG pH ABG pH POC ABG pCO2 62.0 H POC ABG pO2 168 H ABG pO2 ABG HCO3 ABG Base Excess ABG Hemoglobin Oxyhemoglobin Sodium 147 H Potassium Chloride 107.8 H Carbon Dioxide BUN 26 H Creatinine 0.5 L Glucose 139 H POC Glucose 161 H Calcium Phosphorus Magnesium 2.40 H Direct Bilirubin AST Alkaline Phosphatase C-Reactive Protein Serum Total Protein Total Protein Albumin Prealbumin Jwyhb-5-Bkqlyouea Vrlpr-6-Xmvojtyhj Gamma Globulins PEP Interpretation Triglycerides Urine pH Urine Creatinine Urine Total Protein Vancomycin Trough Digoxin Crossmatch 10/30/19 10/30/19 10/30/19 05:15 06:32 09:44 WBC 13.8 H RBC 3.59 L Hgb 10.1 L Hct 32.4 L MCHC 31 L RDW 17.4 H Plt Count Lymph % (Auto) 11.2 L [place] % (Auto) 13.6 H Lymph # [place] # 1.9 H Seg Neutrophils % 75.1 H Seg Neuts % (Manual) Lymphocytes % (Manual) Seg Neutrophils # 10.4 H Seg Neutrophils # Man Lymphocytes # (Manual) Monocytes # (Manual) POC ABG pH ABG pH POC ABG pCO2 51.7 H POC ABG pO2 111 H ABG pO2 ABG HCO3 ABG Base Excess ABG Hemoglobin Oxyhemoglobin Sodium Potassium Chloride Carbon Dioxide BUN Creatinine Glucose POC Glucose 141 H Calcium Phosphorus Magnesium Direct Bilirubin AST Alkaline Phosphatase C-Reactive Protein Serum Total Protein Total Protein Albumin Prealbumin Gtcsv-0-Eqanalpjm Jsesi-8-Wartsjeon Gamma Globulins PEP Interpretation Triglycerides Urine pH Urine Creatinine Urine Total Protein Vancomycin Trough Digoxin Crossmatch 10/30/19 10/31/19 10/31/19 18:10 04:18 04:18 WBC 11.7 H RBC 3.11 L Hgb 9.0 L Hct 27.9 L MCHC RDW 17.1 H Plt Count Lymph % (Auto) [place] % (Auto) Lymph # [place] # Seg Neutrophils % Seg Neuts % (Manual) Lymphocytes % (Manual) Seg Neutrophils # Seg Neutrophils # Man Lymphocytes # (Manual) Monocytes # (Manual) POC ABG pH ABG pH POC ABG pCO2 POC ABG pO2 ABG pO2 ABG HCO3 ABG Base Excess ABG Hemoglobin Oxyhemoglobin Sodium 148 H Potassium Chloride 108.7 H Carbon Dioxide BUN 37 H Creatinine 0.7 L Glucose 102 H POC Glucose 131 H Calcium Phosphorus Magnesium Direct Bilirubin AST Alkaline Phosphatase C-Reactive Protein Serum Total Protein Total Protein Albumin Prealbumin Gvwrv-2-Pptgakwrq Jasxn-2-Mnntqkylm Gamma Globulins PEP Interpretation Triglycerides Urine pH Urine Creatinine Urine Total Protein Vancomycin Trough Digoxin Crossmatch 10/31/19 10/31/19 10/31/19 11:32 12:55 18:10 WBC RBC Hgb Hct MCHC RDW Plt Count Lymph % (Auto) [place] % (Auto) Lymph # [place] # Seg Neutrophils % Seg Neuts % (Manual) Lymphocytes % (Manual) Seg Neutrophils # Seg Neutrophils # Man Lymphocytes # (Manual) Monocytes # (Manual) POC ABG pH ABG pH POC ABG pCO2 57.9 H POC ABG pO2 135 H ABG pO2 ABG HCO3 ABG Base Excess ABG Hemoglobin Oxyhemoglobin Sodium Potassium Chloride Carbon Dioxide BUN Creatinine Glucose POC Glucose 120 H Calcium Phosphorus Magnesium Direct Bilirubin AST Alkaline Phosphatase C-Reactive Protein Serum Total Protein Total Protein Albumin Prealbumin Kynua-0-Cxitpovcg Bcmlp-7-Rnuoxpanq Gamma Globulins PEP Interpretation Triglycerides Urine pH Urine Creatinine Urine Total Protein Vancomycin Trough 41.7 H Digoxin Crossmatch 10/31/19 11/01/19 11/01/19 23:08 05:30 05:30 WBC 14.6 H RBC 3.13 L Hgb 8.9 L Hct 27.7 L MCHC RDW 17.0 H Plt Count Lymph % (Auto) [place] % (Auto) Lymph # [place] # Seg Neutrophils % Seg Neuts % (Manual) Lymphocytes % (Manual) Seg Neutrophils # Seg Neutrophils # Man Lymphocytes # (Manual) Monocytes # (Manual) POC ABG pH ABG pH POC ABG pCO2 POC ABG pO2 ABG pO2 ABG HCO3 ABG Base Excess ABG Hemoglobin Oxyhemoglobin Sodium 149 H Potassium Chloride 109.0 H Carbon Dioxide BUN 26 H Creatinine 0.7 L Glucose 129 H POC Glucose 109 H Calcium Phosphorus Magnesium Direct Bilirubin AST Alkaline Phosphatase C-Reactive Protein Serum Total Protein Total Protein Albumin Prealbumin Qwgow-2-Arciqmsvn Nwjlk-9-Ennsxqofk Gamma Globulins PEP Interpretation Triglycerides Urine pH Urine Creatinine Urine Total Protein Vancomycin Trough Digoxin Crossmatch 11/01/19 11/01/19 11/01/19 06:09 06:10 11:52 WBC RBC Hgb Hct MCHC RDW Plt Count Lymph % (Auto) [place] % (Auto) Lymph # [place] # Seg Neutrophils % Seg Neuts % (Manual) Lymphocytes % (Manual) Seg Neutrophils # Seg Neutrophils # Man Lymphocytes # (Manual) Monocytes # (Manual) POC ABG pH ABG pH POC ABG pCO2 51.3 H POC ABG pO2 71 L ABG pO2 ABG HCO3 ABG Base Excess ABG Hemoglobin Oxyhemoglobin Sodium Potassium Chloride Carbon Dioxide BUN Creatinine Glucose POC Glucose 113 H 106 H Calcium Phosphorus Magnesium Direct Bilirubin AST Alkaline Phosphatase C-Reactive Protein Serum Total Protein Total Protein Albumin Prealbumin Pkkcp-1-Dsdlmfhvq Wvadq-0-Ggoprercu Gamma Globulins PEP Interpretation Triglycerides Urine pH Urine Creatinine Urine Total Protein Vancomycin Trough Digoxin Crossmatch 11/01/19 11/02/19 11/02/19 18:18 03:40 03:40 WBC RBC 2.36 L Hgb 7.2 L Hct 20.8 L D MCHC 35 H RDW 16.8 H Plt Count Lymph % (Auto) [place] % (Auto) Lymph # [place] # Seg Neutrophils % Seg Neuts % (Manual) Lymphocytes % (Manual) Seg Neutrophils # Seg Neutrophils # Man Lymphocytes # (Manual) Monocytes # (Manual) POC ABG pH ABG pH POC ABG pCO2 POC ABG pO2 ABG pO2 ABG HCO3 ABG Base Excess ABG Hemoglobin Oxyhemoglobin Sodium 157 H D Potassium 3.0 L D Chloride 117.2 H Carbon Dioxide BUN 23 H Creatinine 0.6 L Glucose 101 H POC Glucose 120 H Calcium 6.4 L D Phosphorus Magnesium Direct Bilirubin AST Alkaline Phosphatase C-Reactive Protein Serum Total Protein Total Protein Albumin Prealbumin Jvzmv-8-Rdckffnth Xtbbu-1-Zuchxfvid Gamma Globulins PEP Interpretation Triglycerides Urine pH Urine Creatinine Urine Total Protein Vancomycin Trough Digoxin Crossmatch 11/02/19 11/02/19 11/02/19 04:48 05:30 12:43 WBC RBC Hgb Hct MCHC RDW Plt Count Lymph % (Auto) [place] % (Auto) Lymph # [place] # Seg Neutrophils % Seg Neuts % (Manual) Lymphocytes % (Manual) Seg Neutrophils # Seg Neutrophils # Man Lymphocytes # (Manual) Monocytes # (Manual) POC ABG pH ABG pH POC ABG pCO2 50.1 H POC ABG pO2 74 L ABG pO2 ABG HCO3 ABG Base Excess ABG Hemoglobin Oxyhemoglobin Sodium 149 H D Potassium Chloride 110.0 H Carbon Dioxide BUN 23 H Creatinine 0.6 L Glucose POC Glucose 109 H Calcium 8.1 L D Phosphorus Magnesium 2.40 H Direct Bilirubin AST Alkaline Phosphatase C-Reactive Protein Serum Total Protein Total Protein Albumin Prealbumin Kzypv-7-Zftwhhmlj Htiaf-1-Gotxikdcg Gamma Globulins PEP Interpretation Triglycerides Urine pH Urine Creatinine Urine Total Protein Vancomycin Trough Digoxin Crossmatch 11/03/19 11/03/19 11/03/19 03:42 03:42 04:13 WBC RBC 2.93 L Hgb 8.5 L Hct 25.8 L MCHC RDW 16.9 H Plt Count Lymph % (Auto) [place] % (Auto) Lymph # [place] # Seg Neutrophils % Seg Neuts % (Manual) Lymphocytes % (Manual) Seg Neutrophils # Seg Neutrophils # Man Lymphocytes # (Manual) Monocytes # (Manual) POC ABG pH 7.540 H ABG pH POC ABG pCO2 POC ABG pO2 51 L ABG pO2 ABG HCO3 ABG Base Excess ABG Hemoglobin Oxyhemoglobin Sodium 147 H Potassium 3.5 L D Chloride 108.6 H Carbon Dioxide BUN Creatinine 0.6 L Glucose 109 H POC Glucose Calcium 8.3 L Phosphorus Magnesium Direct Bilirubin AST Alkaline Phosphatase C-Reactive Protein Serum Total Protein Total Protein Albumin Prealbumin Kzemk-0-Wtmhoibrg Rdbvx-3-Nmjgwxyjx Gamma Globulins PEP Interpretation Triglycerides Urine pH Urine Creatinine Urine Total Protein Vancomycin Trough Digoxin Crossmatch 11/03/19 11/03/19 11/03/19 04:28 12:04 23:02 WBC RBC Hgb Hct MCHC RDW Plt Count Lymph % (Auto) [place] % (Auto) Lymph # [place] # Seg Neutrophils % Seg Neuts % (Manual) Lymphocytes % (Manual) Seg Neutrophils # Seg Neutrophils # Man Lymphocytes # (Manual) Monocytes # (Manual) POC ABG pH ABG pH POC ABG pCO2 45.4 H POC ABG pO2 ABG pO2 ABG HCO3 ABG Base Excess ABG Hemoglobin Oxyhemoglobin Sodium Potassium Chloride Carbon Dioxide BUN Creatinine Glucose POC Glucose 109 H 111 H Calcium Phosphorus Magnesium Direct Bilirubin AST Alkaline Phosphatase C-Reactive Protein Serum Total Protein Total Protein Albumin Prealbumin Qcjpy-7-Crpigoekw Cjqse-2-Kjibzyudu Gamma Globulins PEP Interpretation Triglycerides Urine pH Urine Creatinine Urine Total Protein Vancomycin Trough Digoxin Crossmatch 11/04/19 11/04/19 11/04/19 05:00 05:00 05:19 WBC RBC 2.96 L Hgb 8.6 L Hct 25.5 L MCHC RDW 16.7 H Plt Count Lymph % (Auto) [place] % (Auto) Lymph # [place] # Seg Neutrophils % Seg Neuts % (Manual) Lymphocytes % (Manual) Seg Neutrophils # Seg Neutrophils # Man Lymphocytes # (Manual) Monocytes # (Manual) POC ABG pH ABG pH POC ABG pCO2 POC ABG pO2 ABG pO2 ABG HCO3 ABG Base Excess ABG Hemoglobin Oxyhemoglobin Sodium Potassium 3.5 L Chloride Carbon Dioxide BUN Creatinine 0.5 L Glucose 111 H POC Glucose 106 H Calcium 8.1 L Phosphorus Magnesium Direct Bilirubin AST Alkaline Phosphatase C-Reactive Protein Serum Total Protein Total Protein Albumin Prealbumin Rdkwp-9-Hwleakaam Hdnpm-4-Ipryvjhly Gamma Globulins PEP Interpretation Triglycerides Urine pH Urine Creatinine Urine Total Protein Vancomycin Trough Digoxin Crossmatch 11/04/19 11/05/19 11/05/19 12:40 00:28 04:19 WBC 12.4 H RBC 2.98 L Hgb 8.5 L Hct 25.5 L MCHC RDW 16.6 H Plt Count Lymph % (Auto) [place] % (Auto) Lymph # [place] # Seg Neutrophils % Seg Neuts % (Manual) Lymphocytes % (Manual) Seg Neutrophils # Seg Neutrophils # Man Lymphocytes # (Manual) Monocytes # (Manual) POC ABG pH ABG pH POC ABG pCO2 POC ABG pO2 ABG pO2 ABG HCO3 ABG Base Excess ABG Hemoglobin Oxyhemoglobin Sodium Potassium Chloride Carbon Dioxide BUN Creatinine Glucose POC Glucose 109 H 132 H Calcium Phosphorus Magnesium Direct Bilirubin AST Alkaline Phosphatase C-Reactive Protein Serum Total Protein Total Protein Albumin Prealbumin Pomkg-2-Tndvjtddf Yamml-8-Cwpqeqepc Gamma Globulins PEP Interpretation Triglycerides Urine pH Urine Creatinine Urine Total Protein Vancomycin Trough Digoxin Crossmatch 11/05/19 11/05/19 11/05/19 04:19 05:40 13:14 WBC RBC Hgb Hct MCHC RDW Plt Count Lymph % (Auto) [place] % (Auto) Lymph # [place] # Seg Neutrophils % Seg Neuts % (Manual) Lymphocytes % (Manual) Seg Neutrophils # Seg Neutrophils # Man Lymphocytes # (Manual) Monocytes # (Manual) POC ABG pH ABG pH POC ABG pCO2 POC ABG pO2 ABG pO2 ABG HCO3 ABG Base Excess ABG Hemoglobin Oxyhemoglobin Sodium Potassium 3.4 L Chloride Carbon Dioxide BUN Creatinine 0.4 L Glucose 106 H POC Glucose 136 H 145 H Calcium 8.2 L Phosphorus Magnesium Direct Bilirubin AST Alkaline Phosphatase C-Reactive Protein Serum Total Protein Total Protein Albumin Prealbumin Jbijl-7-Wsemsxnfo Bcvzv-8-Cjbnnmnve Gamma Globulins PEP Interpretation Triglycerides Urine pH Urine Creatinine Urine Total Protein Vancomycin Trough Digoxin Crossmatch 11/05/19 11/05/19 11/06/19 18:29 23:42 05:00 WBC 12.2 H RBC 2.89 L Hgb 8.2 L Hct 24.9 L MCHC RDW 16.4 H Plt Count Lymph % (Auto) [place] % (Auto) Lymph # [place] # Seg Neutrophils % Seg Neuts % (Manual) Lymphocytes % (Manual) Seg Neutrophils # Seg Neutrophils # Man Lymphocytes # (Manual) Monocytes # (Manual) POC ABG pH ABG pH POC ABG pCO2 POC ABG pO2 ABG pO2 ABG HCO3 ABG Base Excess ABG Hemoglobin Oxyhemoglobin Sodium Potassium Chloride Carbon Dioxide BUN Creatinine Glucose POC Glucose 138 H 117 H Calcium Phosphorus Magnesium Direct Bilirubin AST Alkaline Phosphatase C-Reactive Protein Serum Total Protein Total Protein Albumin Prealbumin Puwti-4-Tfvowigxi Kmoyt-6-Ahrdocvyj Gamma Globulins PEP Interpretation Triglycerides Urine pH Urine Creatinine Urine Total Protein Vancomycin Trough Digoxin Crossmatch 11/06/19 11/06/19 11/06/19 05:00 05:22 17:39 WBC RBC Hgb Hct MCHC RDW Plt Count Lymph % (Auto) [place] % (Auto) Lymph # [place] # Seg Neutrophils % Seg Neuts % (Manual) Lymphocytes % (Manual) Seg Neutrophils # Seg Neutrophils # Man Lymphocytes # (Manual) Monocytes # (Manual) POC ABG pH ABG pH POC ABG pCO2 POC ABG pO2 ABG pO2 ABG HCO3 ABG Base Excess ABG Hemoglobin Oxyhemoglobin Sodium Potassium Chloride Carbon Dioxide BUN Creatinine 0.4 L Glucose 114 H POC Glucose 121 H 110 H Calcium 8.2 L Phosphorus Magnesium Direct Bilirubin AST Alkaline Phosphatase C-Reactive Protein Serum Total Protein Total Protein Albumin Prealbumin Blacy-3-Tfconegjb Fbfnd-7-Nljldszlu Gamma Globulins PEP Interpretation Triglycerides Urine pH Urine Creatinine Urine Total Protein Vancomycin Trough Digoxin Crossmatch 11/06/19 11/07/19 11/07/19 23:29 04:06 04:06 WBC 13.0 H RBC 2.80 L Hgb 7.9 L Hct 24.0 L MCHC RDW 16.5 H Plt Count Lymph % (Auto) 7.0 L [place] % (Auto) Lymph # 0.9 L [place] # Seg Neutrophils % 86.3 H Seg Neuts % (Manual) Lymphocytes % (Manual) Seg Neutrophils # 11.2 H Seg Neutrophils # Man Lymphocytes # (Manual) Monocytes # (Manual) POC ABG pH ABG pH POC ABG pCO2 POC ABG pO2 ABG pO2 ABG HCO3 ABG Base Excess ABG Hemoglobin Oxyhemoglobin Sodium Potassium Chloride Carbon Dioxide BUN Creatinine 0.4 L Glucose 110 H POC Glucose 113 H Calcium 8.2 L Phosphorus Magnesium Direct Bilirubin AST Alkaline Phosphatase C-Reactive Protein Serum Total Protein Total Protein Albumin Prealbumin Tfvpt-8-Kqdekzroa Bnhjm-1-Kvcnvonaq Gamma Globulins PEP Interpretation Triglycerides Urine pH Urine Creatinine Urine Total Protein Vancomycin Trough Digoxin Crossmatch 11/07/19 11/07/19 11/07/19 05:43 12:47 18:19 WBC RBC Hgb Hct MCHC RDW Plt Count Lymph % (Auto) [place] % (Auto) Lymph # [place] # Seg Neutrophils % Seg Neuts % (Manual) Lymphocytes % (Manual) Seg Neutrophils # Seg Neutrophils # Man Lymphocytes # (Manual) Monocytes # (Manual) POC ABG pH ABG pH POC ABG pCO2 POC ABG pO2 ABG pO2 ABG HCO3 ABG Base Excess ABG Hemoglobin Oxyhemoglobin Sodium Potassium Chloride Carbon Dioxide BUN Creatinine Glucose POC Glucose 114 H 120 H 112 H Calcium Phosphorus Magnesium Direct Bilirubin AST Alkaline Phosphatase C-Reactive Protein Serum Total Protein Total Protein Albumin Prealbumin Ttizl-6-Yjsgnkjve Xuoab-4-Rrisvhcin Gamma Globulins PEP Interpretation Triglycerides Urine pH Urine Creatinine Urine Total Protein Vancomycin Trough Digoxin Crossmatch 11/08/19 11/08/19 11/08/19 03:45 03:45 11:43 WBC 12.7 H RBC 2.82 L Hgb 7.8 L Hct 24.4 L MCHC RDW 16.5 H Plt Count Lymph % (Auto) 9.4 L [place] % (Auto) Lymph # [place] # 0.9 H Seg Neutrophils % 83.0 H Seg Neuts % (Manual) Lymphocytes % (Manual) Seg Neutrophils # 10.6 H Seg Neutrophils # Man Lymphocytes # (Manual) Monocytes # (Manual) POC ABG pH ABG pH POC ABG pCO2 POC ABG pO2 ABG pO2 ABG HCO3 ABG Base Excess ABG Hemoglobin Oxyhemoglobin Sodium Potassium Chloride Carbon Dioxide BUN Creatinine 0.4 L Glucose 107 H POC Glucose 118 H Calcium Phosphorus Magnesium Direct Bilirubin AST Alkaline Phosphatase C-Reactive Protein Serum Total Protein Total Protein Albumin Prealbumin Pxhdl-7-Egtxquteg Davtd-4-Tfxkaqefr Gamma Globulins PEP Interpretation Triglycerides Urine pH Urine Creatinine Urine Total Protein Vancomycin Trough Digoxin Crossmatch 11/08/19 11/09/19 11/09/19 23:45 12:41 12:56 WBC RBC Hgb Hct MCHC RDW Plt Count Lymph % (Auto) [place] % (Auto) Lymph # [place] # Seg Neutrophils % Seg Neuts % (Manual) Lymphocytes % (Manual) Seg Neutrophils # Seg Neutrophils # Man Lymphocytes # (Manual) Monocytes # (Manual) POC ABG pH ABG pH POC ABG pCO2 POC ABG pO2 ABG pO2 ABG HCO3 ABG Base Excess ABG Hemoglobin Oxyhemoglobin Sodium Potassium Chloride Carbon Dioxide BUN Creatinine Glucose POC Glucose 113 H 107 H 122 H Calcium Phosphorus Magnesium Direct Bilirubin AST Alkaline Phosphatase C-Reactive Protein Serum Total Protein Total Protein Albumin Prealbumin Scsml-3-Mhbrmikmh Hdusg-5-Exyusqlbp Gamma Globulins PEP Interpretation Triglycerides Urine pH Urine Creatinine Urine Total Protein Vancomycin Trough Digoxin Crossmatch 11/10/19 11/10/19 11/11/19 05:12 12:20 12:13 WBC RBC Hgb Hct MCHC RDW Plt Count Lymph % (Auto) [place] % (Auto) Lymph # [place] # Seg Neutrophils % Seg Neuts % (Manual) Lymphocytes % (Manual) Seg Neutrophils # Seg Neutrophils # Man Lymphocytes # (Manual) Monocytes # (Manual) POC ABG pH ABG pH POC ABG pCO2 POC ABG pO2 ABG pO2 ABG HCO3 ABG Base Excess ABG Hemoglobin Oxyhemoglobin Sodium Potassium Chloride Carbon Dioxide BUN Creatinine Glucose POC Glucose 127 H 125 H 107 H Calcium Phosphorus Magnesium Direct Bilirubin AST Alkaline Phosphatase C-Reactive Protein Serum Total Protein Total Protein Albumin Prealbumin Fqtau-3-Zivytjdur Ktrcl-1-Jggxzoiwx Gamma Globulins PEP Interpretation Triglycerides Urine pH Urine Creatinine Urine Total Protein Vancomycin Trough Digoxin Crossmatch 11/11/19 11/11/19 11/12/19 17:29 22:20 06:00 WBC RBC 2.77 L Hgb 7.8 L Hct 23.4 L MCHC RDW 16.6 H Plt Count Lymph % (Auto) 11.9 L [place] % (Auto) 8.9 H Lymph # [place] # 0.9 H Seg Neutrophils % 78.2 H Seg Neuts % (Manual) Lymphocytes % (Manual) Seg Neutrophils # 8.2 H Seg Neutrophils # Man Lymphocytes # (Manual) Monocytes # (Manual) POC ABG pH ABG pH POC ABG pCO2 POC ABG pO2 ABG pO2 ABG HCO3 ABG Base Excess ABG Hemoglobin Oxyhemoglobin Sodium Potassium Chloride Carbon Dioxide BUN Creatinine Glucose POC Glucose 120 H 109 H Calcium Phosphorus Magnesium Direct Bilirubin AST Alkaline Phosphatase C-Reactive Protein Serum Total Protein Total Protein Albumin Prealbumin Xtqqt-3-Oqfsmwpur Xnshn-3-Dngfmxjbl Gamma Globulins PEP Interpretation Triglycerides Urine pH Urine Creatinine Urine Total Protein Vancomycin Trough Digoxin Crossmatch 11/12/19 07:52 WBC RBC Hgb Hct MCHC RDW Plt Count Lymph % (Auto) [place] % (Auto) Lymph # [place] # Seg Neutrophils % Seg Neuts % (Manual) Lymphocytes % (Manual) Seg Neutrophils # Seg Neutrophils # Man Lymphocytes # (Manual) Monocytes # (Manual) POC ABG pH ABG pH POC ABG pCO2 POC ABG pO2 ABG pO2 ABG HCO3 ABG Base Excess ABG Hemoglobin Oxyhemoglobin Sodium Potassium Chloride Carbon Dioxide BUN Creatinine Glucose POC Glucose 120 H Calcium Phosphorus Magnesium Direct Bilirubin AST Alkaline Phosphatase C-Reactive Protein Serum Total Protein Total Protein Albumin Prealbumin Zvqgr-4-Autioydpj Uhxnv-7-Edkbamltq Gamma Globulins PEP Interpretation Triglycerides Urine pH Urine Creatinine Urine Total Protein Vancomycin Trough Digoxin Crossmatch
[2019-11-12] MEDS: HYDROmorphone 2 MG/1 ML INJ IV PRN ×2 (10:51→22:59)
--- NOTE | 2019-11-12 13:15 | Post Operative Note ---
Pre-op diagnosis: Resolved pneumothorax, left chest tube no longer needed Post-op diagnosis: same Findings: Vasoline gauze and regular gauze placed over chest tube insertion site and sealed with tegaderm. Further management per general surgery or pulmonology. Procedure: Removal of left sided chest tube Anesthesia: none Surgeon: LIZ HDZ Estimated blood loss: minimal Condition: stable Disposition: floor
--- NOTE | 2019-11-12 13:46 | XRay Report ---
CHEST 1 VIEW INDICATION / CLINICAL INFORMATION: left chest tube removal. COMPARISON: 11/06/2019 FINDINGS: SUPPORT DEVICES: Left-sided chest tube has been removed in the interval. PICC line appears unchanged. HEART / MEDIASTINUM: Unchanged LUNGS / PLEURA: There is a small amount of pleural fluid on the right. No focal infiltrate is seen. M inimal thorax is seen.. ADDITIONAL FINDINGS: No significant additional findings. IMPRESSION: 1. There is very small right pleural effusion. Signer Name: Hernando Moran MD Signed: 11/12/2019 1:41 PM Workstation Name: [id number]
--- NOTE | 2019-11-12 14:51 | Progress Note ---
Assessment and Plan Cultures 10/10/2019 surgical culture: No growth at 72 hours 10/13/2019 tracheal aspirate culture: No growth 10/13/2019 peritoneal fluid: Enterococcus species (S to Penicillin, Vancomycin) 10/15/2019 blood culture: no growth 10/26/2019 urine culture: no growth thus far 10/26/2019 blood culture: no growth at 24 hours Assessment: 54 yo M PMhx CAD, COPD, recent complicated course of bowel perforation after a colonoscopy admitted with surgical site dehiscence of the fascia. Now with: 1. Acute sepsis - leukocytosis stable, no fever. Most likely secondary to fluid collection/abscess in the abdomen and anastomotic leak. 2. Intra-abdominal infection from anastomotic leak - s/p ex lap with closure of abdominal wall and wound vac placement (10/05/2019); s/p Re-exploration, washout, transection of colon, Abthera placement - 10/13/2019. s/p re- exploration and colostomy creation on 10/16/2019, intra-operatively was found to have "Small amount of continued leak from the old anastomotic site. Some con tamination still present. Bowel was all viable". Back on OR on 10/19/2019, findings "small leak from stump staple line". OR again on 10/22/2019 for: Abdominal washout. Closure of abdominal fascia. Wound vac placement. Findings, "contamination from the sigmoid stump closure site". New drain placed 10/30 with stool-like output. Repeat CT on 11/01 showed increasing left pneumothorax, LLL consolidation, edson effusions. 3. COPD, acute respiratory failure: on the vent. s/p extubation. On NC O2. 4. Penicillin allergy - likely not a true allergy, reviewed EMR for previous exposure to PCNs, patient received several days of Zosyn in 2018 without issue. 5. Left pneumothorax s/p chest tube placement on 10/30/2019. Chest tube removed on 11/12/2019. Recs: continue to monitor off antibiotics. WBC improved. Julianna Pineda MD, FACP [facility] ([facility]) C: [phone] O: [phone] F: [phone] Subjective Date of service: 11/12/19 Principal diagnosis: acute renal failure Interval history: Remains afebrile. Had chest tube removal. Objective - Exam Narrative Exam: Physical Exam: Constitutional: awake, alert, no distress Head, Ears, Nose: Normocephalic, atraumatic. External ears, nose normal Eyes: Conjunctivae/corneas clear. No icterus. No ptosis. Neck: supple, no meningeal signs Cardiovascular: S1, S2 normal. Respiratory: clear b/l. GI: Midline abdominal VAC. bowel sounds +, Colostomy +, multiple drains + Musculoskeletal: pedal edema + Skin: No rash or abscess Hem/Lymphatic: No palpable cervical or supraclavicular nodes. No lymphangitis Psych: no agitation Neurological: awake, alert, grossly non focal - Constitutional Vitals: Vital Signs Temp Pulse Resp BP Pulse Ox 97.8 F 98 H 24 117/74 95 11/12/19 12:00 11/12/19 10:00 11/12/19 08:00 11/12/19 10:00 11/12/19 10:00 Temperature -Last 24 Hours Temperature 97.8 F Temperature 98.3 F Temperature 98.6 F Temperature 99.8 F Temperature 98.5 F - Labs CBC & Chem 7: 11/12/19 06:00 11/08/19 03:45 Labs: Abnormal lab results 11/11/19 11/11/19 11/12/19 Range/Units 17:29 22:20 06:00 RBC 2.77 L (3.65-5.03) M/mm3 Hgb 7.8 L (11.8-15.2) gm/dl Hct 23.4 L (35.5-45.6) % RDW 16.6 H (13.2-15.2) % Lymph % (Auto) 11.9 L (13.4-35.0) % [place] % (Auto) 8.9 H (0.0-7.3) % [place] # 0.9 H (0.0-0.8) K/mm3 Seg Neutrophils % 78.2 H (40.0-70.0) % Seg Neutrophils # 8.2 H (1.8-7.7) K/mm3 POC Glucose 120 H 109 H (70-105) 11/12/19 11/12/19 Range/Units 07:52 11:58 RBC (3.65-5.03) M/mm3 Hgb (11.8-15.2) gm/dl Hct (35.5-45.6) % RDW (13.2-15.2) % Lymph % (Auto) (13.4-35.0) % [place] % (Auto) (0.0-7.3) % [place] # (0.0-0.8) K/mm3 Seg Neutrophils % (40.0-70.0) % Seg Neutrophils # (1.8-7.7) K/mm3 POC Glucose 120 H 140 H (70-105)
--- NOTE | 2019-11-12 17:20 | XRay Report ---
CHEST 1 VIEW INDICATION: left chest tube removal + 4 hrs. COMPARISON: Earlier today FINDINGS: Support devices: Stable satisfactory device positioning. Heart: Within normal limits. Lungs/Pleura: No acute air space or interstitial disease. No pneumothorax or significant pleural effu jose identified. Additional findings: None. IMPRESSION: 1. No acute findings. Signer Name: Hilario Day MD Signed: 11/12/2019 5:15 PM Workstation Name: [id number]
[2019-11-12] MEDS: ENOXAPARIN 40 MG/0.4 ML INJ SUB-Q SCH (21:21)
[2019-11-12] MEDS: HYDROcodone/APAP 7.5-325MG-15ML ORAL LIQD FEEDTUBE PRN (21:24)
[2019-11-13] MEDS: IPRATROPIUM/ALBUTEROL SULFATE 3 ML AMPUL.NEB IH SCH ×5 (02:16→20:35)
[2019-11-13 05:55] LABS: Basophils # (Auto) 0.1 K/mm3 (0.0-0.1); Basophils % (Auto) 0.5 % (0.0-1.8); Eosinophils # (Auto) 0.1 K/mm3 (0.0-0.4); Eosinophils % (Auto) 0.7 % (0.0-4.3); Hematocrit 24.5 % (35.5-45.6); Hemoglobin 8.1 gm/dl (11.8-15.2); Lymphocytes # (Auto) 1.1 K/mm3 (1.2-5.4); Lymphocytes % (Auto) 10.1 % (13.4-35.0); Mean Corpuscular HGB Conc 33 % (32-34); Mean Corpuscular Volume 85 fl (84-94); Monocytes # (Auto) 0.9 K/mm3 (0.0-0.8); Monocytes % (Auto) 7.6 % (0.0-7.3); Platelet Count 292 K/mm3 (140-440); Red Cell Distribution Width 16.5 % (13.2-15.2)
[2019-11-13 06:17] LABS: BUN/Creatinine Ratio 25; Blood Urea Nitrogen 15 mg/dL (9-20); Calcium 9.3 mg/dL (8.4-10.2); Hemolysis Index 0
[2019-11-13] MEDS: INSULIN LISPRO 100 UNIT/ML SUB-Q SCH ×4 (06:36→18:47)
[2019-11-13] MEDS: METOPROLOL TARTRATE 50 MG TAB PO SCH ×3 (06:37→21:34)
--- NOTE | 2019-11-13 09:10 | Progress Note ---
Assessment and Plan - Patient Problems (1) Dehiscence of closure of fascia, superficial or muscular Current Visit: No Status: Acute Qualifiers: Encounter type: initial encounter Qualified Code(s): T81.32XA - Disruption of internal operation (surgical) wound, not elsewhere classified, initial encounter Plan to address problem: Pt stable. s/p ex lap with closure of abdominal wall and wound vac placement (10/05) - POD#39; s/p Re-exploration, washout, transection of colon, Abthera placement - 10/13 - POD#31; s/p abd washout, partial omentectomy, partial colectomy with colostomy - 10/16 POD#28. s/p abd washout, feeding tube placement, AbThera placement - 10/19 - POD#25; Abdominal washout and closure - 10/22 - POD#22 Patient appears stable. Rec: 1) Neuro - self-extubated 11/04. 2) CV - BP normal today 3) Resp - On NC. Small bore CT on left - removed 11/02. 4) GI - Ostomy looks good. Functioning. Sump drains - Right drain was accidentally pulled out (10/30). Left one is still functioning. New small bore catheter placed 10/30 - moderate output after drain was stripped. Has appeared like stool. looking thinner and more yellow today. Plan to connect both to wall suction - continuous. Output slowly trending down. Midline drain - seems to be working well. may eventually become main drain and we can remove the two left sided drains if their output is minimal. Wound Vac - wound looked good on last check. continue wound vac. Due for change today. Ostomy - functioning now. Some solid stool in bag. Gastric Port - Appears to be tolerating the clamping. Residuals are minimal (occasional high numbers). Ok to give water flushes in place of IVFs 5) - BUN/Cr stable. 6) ID - Abx per ID. Enterococcus on cultures. If patient has worsening labs/vitals, then rescan and place additional drains as appropriate. Discussed Abx plan with Dr. Lorenzo. I am ok with trial off Abx, 7) Nutrition - Tube feeds on hold due to clogged feeding port. Will try to unclog today. Nurse instructed on technique. Will check back later. Passed Speech Eval. Seems to do ok with soft diet. Will advance to regular diet. Will d/c tube feeds once we are sure that he is meeting his nutritional needs by mouth. May be a moot point if the feeding tube is clogged. 8) DVT prophylaxis - SCDs. Lovenox 9) Family -no family at bedside. 10) PT - will need rehab. 11) Dispo - Discussed with Dr. Negro about starting a search for a SNF/rehab. Note: Spoke with [facility] surgeon on 11/01/19 about possible transfer. They reviewed the notes that were sent and we discussed the case. They felt that they had nothing else to offer. They agreed with our management. Also agreed that another exploration should not be done. If needed, additional drains can be placed. They did suggest putting a [place] tube in the rectum to decompress that area. (That has been done). This conversation was communicated to the . Please call with questions. Subjective Date of service: 11/13/19 Patient Reports: Positive: tolerating a regular diet (soft diet), bowel movement, other (nurse reports that jejunal tube seems to be clogged) Objective Vital Signs - 12hr 11/12/19 11/12/19 11/12/19 21:23 21:24 22:59 Temperature Pulse Rate 93 H Pulse Rate [ Anterior Bilateral Throughout] Respiratory 20 20 Rate Respiratory Rate [Anterior Bilateral Throughout] Blood Pressure 126/52 O2 Sat by Pulse Oximetry 11/12/19 11/13/19 11/13/19 23:50 02:30 02:31 Temperature 98.8 F Pulse Rate Pulse Rate [ 88 Anterior Bilateral Throughout] Respiratory Rate Respiratory 20 Rate [Anterior Bilateral Throughout] Blood Pressure O2 Sat by Pulse 96 Oximetry 11/13/19 11/13/19 03:43 06:37 Temperature 98.1 F Pulse Rate 79 Pulse Rate [ Anterior Bilateral Throughout] Respiratory Rate Respiratory Rate [Anterior Bilateral Throughout] Blood Pressure 97/26 O2 Sat by Pulse Oximetry - General physical appearance no distress, no pain, other (+tremors (chronic)) - Respiratory normal expansion, normal respiratory effort - Abdomen soft, tender (lower abdomen - unchanged), not distended, not guarding, not rigid, other (drains and wound vac working well. ) - Labs 11/13/19 04:33 11/13/19 04:33 Diabetes panel 11/13/19 Range/Units 04:33 Sodium 135 L (137-145) mmol/L Potassium 4.0 (3.6-5.0) mmol/L Chloride 91.9 L (98-107) mmol/L Carbon Dioxide 28 (22-30) mmol/L BUN 15 (9-20) mg/dL Creatinine 0.6 L (0.8-1.5) mg/dL Glucose 85 (75-100) mg/dL Calcium 9.3 (8.4-10.2) mg/dL Calcium panel 11/13/19 Range/Units 04:33 Calcium 9.3 (8.4-10.2) mg/dL Pituitary panel 11/13/19 Range/Units 04:33 Sodium 135 L (137-145) mmol/L Potassium 4.0 (3.6-5.0) mmol/L Chloride 91.9 L (98-107) mmol/L Carbon Dioxide 28 (22-30) mmol/L BUN 15 (9-20) mg/dL Creatinine 0.6 L (0.8-1.5) mg/dL Glucose 85 (75-100) mg/dL Calcium 9.3 (8.4-10.2) mg/dL Adrenal panel 11/13/19 Range/Units 04:33 Sodium 135 L (137-145) mmol/L Potassium 4.0 (3.6-5.0) mmol/L Chloride 91.9 L (98-107) mmol/L Carbon Dioxide 28 (22-30) mmol/L BUN 15 (9-20) mg/dL Creatinine 0.6 L (0.8-1.5) mg/dL Glucose 85 (75-100) mg/dL Calcium 9.3 (8.4-10.2) mg/dL
--- NOTE | 2019-11-13 09:35 | Progress Note ---
Assessment and Plan Assessment and plan: Sepsis, improved. Abx per ID. Enterococcus on cultures. If patient has worsening labs/vitals, then rescan and place additional drains as appropriate. ID plans trial off antibiotics. Dehiscence of closure of fascia s/p ex lap with closure of abdominal wall and wound vac placement (10/05) - POD#37; s/p Re-exploration, washout, transection of colon, Abthera placement - 10/13 - POD#29; s/p abd washout, partial omentectomy, partial colectomy with colostomy - 10/16 POD#26. s/p abd washout, feeding tube placement, AbThera placement - 10/19 - POD#23; Abdominal washout and closure - 10/22 - POD#20 Acute Respiratory failure with hypoxia -Extubated 10/25/19 -Re-intubated 10/30 -Patient self extubated morning of 11/04, now on Oxygen by [place] -Facility Worker following -Multifactorial secondary to pneumonia, pneumothorax and COPD Sepsis On Merrem, Micafungin ID Physician following right sump drain fell out Surgeon following Left pneumothorax s/p chest tube placed 10/30 Resolved. Left lower lobe pneumonia -CTA chest showed left lower lobe consolidation with pleural effusion COPD -Stable -cont neb tx GUILLERMO on CKD -due to ATN due to sepsis -Resolved. Recheck BMP in a.m. -No hydronephrosis on CT Severe Metabolic acidosis -Improved Acute Toxic Metabolic Encephalopathy/Delirium Tremens. Resolved. -Continue CIWA protocol due to hx of ETOH abuse, 6packs a day -Head CT scan negative for acute findings Acute blood loss anemia -H/H stable -Continue to monitor H&H and transfuse for hb<7 SVT, Atrial fib/flutter with RVR -treated with adenosine x1 -off amiodarone and cardizem drip. On oral amiodarone and IV Lopressor. -HR currently controlled -Cardiology following Hx of Hypertension -Stable Hyperlipidemia -stable Atypical chest pain -probably secondary to pneumonitis -troponin levels neg Hx of NH/CAD -s/p PCI of the circumflex and second vessel POBA of the distal LAD occlusion. Left ventricle fraction of 45-50%. Morbid obesity with BMI of 43.4 -Lifestyle modification recommended Moderate Protein calorie malnutrition secondary to surgery -On TPN -Nutrition following Tobacco abuse -Cessation recommended Morbid obesity with BMI of 43.4 -Lifestyle modification recommended DVT and GI ppx: Lovenox/PPI History Interval history: feels better Hospitalist Physical - Physical exam Narrative exam: Gen: Not in acute distress, On Oxygen by [place] HEENT: Normocephalic, atraumatic Neck: supple, no JVD Heart: S1 and S2 reg, no murmurs, rubs or gallop Lungs: Chest tube on left, Abd: soft, NT, ostomy, wound vac, left drain Ext: No edema, no clubbing no cyanosis Neuro: lethargic, opens eyes, follows commands - Constitutional Vitals: Temp Pulse Resp BP Pulse Ox 98.1 F 79 20 97/26 96 11/13/19 03:43 11/13/19 06:37 11/13/19 02:30 11/13/19 06:37 11/13/19 02:31 General appearance: Present: no acute distress, obese Results - Labs CBC & Chem 7: 11/13/19 04:33 11/13/19 04:33 Labs: Laboratory Last Values WBC 11.2 K/mm3 (4.5-11.0) H 11/13/19 04:33 RBC 2.90 M/mm3 (3.65-5.03) L 11/13/19 04:33 Hgb 8.1 gm/dl (11.8-15.2) L 11/13/19 04:33 Hct 24.5 % (35.5-45.6) L 11/13/19 04:33 MCV 85 fl (84-94) 11/13/19 04:33 MCH 28 pg (28-32) 11/13/19 04:33 MCHC 33 % (32-34) 11/13/19 04:33 RDW 16.5 % (13.2-15.2) H 11/13/19 04:33 Plt Count 292 K/mm3 (140-440) 11/13/19 04:33 Lymph % (Auto) 10.1 % (13.4-35.0) L 11/13/19 04:33 [place]ender % (Auto) 7.6 % (0.0-7.3) H 11/13/19 04:33 Eos % (Auto) 0.7 % (0.0-4.3) 11/13/19 04:33 Baso % (Auto) 0.5 % (0.0-1.8) 11/13/19 04:33 Lymph # 1.1 K/mm3 (1.2-5.4) L 11/13/19 04:33 Pender # 0.9 K/mm3 (0.0-0.8) H 11/13/19 04:33 Eos # 0.1 K/mm3 (0.0-0.4) 11/13/19 04:33 Baso # 0.1 K/mm3 (0.0-0.1) 11/13/19 04:33 Add Manual Diff Complete 10/16/19 09:20 Total Counted 100 10/16/19 09:20 Seg Neutrophils % 81.1 % (40.0-70.0) H 11/13/19 04:33 Seg Neuts % (Manual) 79.0 % (40.0-70.0) H 10/16/19 09:20 Band Neutrophils % 12.0 % 10/16/19 09:20 Lymphocytes % (Manual) 4.0 % (13.4-35.0) L 10/16/19 09:20 Reactive Lymphs % (Man) 0 % 10/16/19 09:20 Monocytes % (Manual) 2.0 % (0.0-7.3) 10/16/19 09:20 Eosinophils % (Manual) 0 % (0.0-4.3) 10/16/19 09:20 Basophils % (Manual) 0 % (0.0-1.8) 10/16/19 09:20 Metamyelocytes % 2.0 % 10/16/19 09:20 Myelocytes % 1.0 % 10/16/19 09:20 Promyelocytes % 0 % 10/16/19 09:20 Blast Cells % 0 % 10/16/19 09:20 Nucleated RBC % Not Reportable 10/16/19 09:20 Seg Neutrophils # 9.1 K/mm3 (1.8-7.7) H 11/13/19 04:33 Seg Neutrophils # Man 11.5 K/mm3 (1.8-7.7) H 10/16/19 09:20 Band Neutrophils # 1.8 K/mm3 10/16/19 09:20 Lymphocytes # (Manual) 0.6 K/mm3 (1.2-5.4) L 10/16/19 09:20 Abs React Lymphs (Man) 0.0 K/mm3 10/16/19 09:20 Monocytes # (Manual) 0.3 K/mm3 (0.0-0.8) 10/16/19 09:20 Eosinophils # (Manual) 0.0 K/mm3 (0.0-0.4) 10/16/19 09:20 Basophils # (Manual) 0.0 K/mm3 (0.0-0.1) 10/16/19 09:20 Metamyelocytes # 0.3 K/mm3 10/16/19 09:20 Myelocytes # 0.1 K/mm3 10/16/19 09:20 Promyelocytes # 0.0 K/mm3 10/16/19 09:20 Blast Cells # 0.0 K/mm3 10/16/19 09:20 WBC Morphology Not Reportable 10/16/19 09:20 Hypersegmented Neuts Not Reportable 10/16/19 09:20 Hyposegmented Neuts Not Reportable 10/16/19 09:20 Hypogranular Neuts Not Reportable 10/16/19 09:20 Smudge Cells Not Reportable 10/16/19 09:20 Toxic Granulation Not Reportable 10/16/19 09:20 Toxic Vacuolation Not Reportable 10/16/19 09:20 Dohle Bodies Not Reportable 10/16/19 09:20 Pelger-Huet Anomaly Not Reportable 10/16/19 09:20 Andres Rods Not Reportable 10/16/19 09:20 Platelet Estimate Consistent w auto 10/16/19 09:20 Clumped Platelets Not Reportable 10/16/19 09:20 Plt Clumps, EDTA Not Reportable 10/16/19 09:20 Large Platelets Not Reportable 10/16/19 09:20 Giant Platelets Not Reportable 10/16/19 09:20 Platelet Satelliting Not Reportable 10/16/19 09:20 Plt Morphology Comment Not Reportable 10/16/19 09:20 RBC Morphology Not Reportable 10/16/19 09:20 Dimorphic RBCs Not Reportable 10/16/19 09:20 Polychromasia Few 10/16/19 09:20 Hypochromasia Few 10/16/19 09:20 Poikilocytosis Not Reportable 10/16/19 09:20 Anisocytosis Not Reportable 10/16/19 09:20 Microcytosis Not Reportable 10/16/19 09:20 Macrocytosis Not Reportable 10/16/19 09:20 Spherocytes Not Reportable 10/16/19 09:20 Pappenheimer Bodies Not Reportable 10/16/19 09:20 Sickle Cells Not Reportable 10/16/19 09:20 Target Cells Few 10/16/19 09:20 Tear Drop Cells Not Reportable 10/16/19 09:20 Ovalocytes Not Reportable 10/16/19 09:20 Helmet Cells Not Reportable 10/16/19 09:20 [place] Bodies Not Reportable 10/16/19 09:20 [place] Rings Not Reportable 10/16/19 09:20 [place] Cells Not Reportable 10/16/19 09:20 Bite Cells Not Reportable 10/16/19 09:20 Crenated Cell Not Reportable 10/16/19 09:20 Elliptocytes Not Reportable 10/16/19 09:20 Acanthocytes (Spur) Not Reportable 10/16/19 09:20 Rouleaux Not Reportable 10/16/19 09:20 Hemoglobin C Crystals Not Reportable 10/16/19 09:20 Schistocytes Not Reportable 10/16/19 09:20 Malaria parasites Not Reportable 10/16/19 09:20 Toni Bodies Not Reportable 10/16/19 09:20 Hem Pathologist Commnt No 10/16/19 09:20 POC ABG pH 7.422 (7.35-7.45) 11/03/19 04:28 ABG pH 7.390 pH Units (7.350-7.450) 10/23/19 04:47 POC ABG pCO2 45.4 (35-45) H 11/03/19 04:28 ABG pCO2 48.4 mm Hg 10/23/19 04:47 POC ABG pO2 83 (80-105) 11/03/19 04:28 ABG pO2 68.9 mm Hg (80.0-90.0) L 10/23/19 04:47 POC ABG HCO3 29.6 (22-26 mml/L) 11/03/19 04:28 ABG HCO3 28.7 mmol/L (20.0-26.0) H 10/23/19 04:47 POC ABG Total CO2 31 (23-27mmol/L) 11/03/19 04:28 POC ABG O2 Sat 96 11/03/19 04:28 ABG O2 Saturation 96.6 % (95.0-99.0) 10/23/19 04:47 ABG O2 Content 8.8 (0.0-44) 10/23/19 04:47 POC ABG Base Excess 5 ((-2) - (+3)mmol/L) 11/03/19 04:28 ABG Base Excess 3.4 mmol/L (-2.0-3.0) H 10/23/19 04:47 ABG Hemoglobin 6.6 gm/dl (14.0-18.0) L 10/23/19 04:47 ABG Carboxyhemoglobin 2.1 % (0.0-5.0) 10/23/19 04:47 ABG Methemoglobin 0.5 % (0.0-1.5) 10/23/19 04:47 Oxyhemoglobin 94.1 % (95.0-99.0) L 10/23/19 04:47 FiO2 40 % 11/03/19 04:28 Sodium 135 mmol/L (137-145) L 11/13/19 04:33 Potassium 4.0 mmol/L (3.6-5.0) 11/13/19 04:33 Chloride 91.9 mmol/L (98-107) L 11/13/19 04:33 Carbon Dioxide 28 mmol/L (22-30) 11/13/19 04:33 Anion Gap 19 mmol/L 11/13/19 04:33 BUN 15 mg/dL (9-20) 11/13/19 04:33 Creatinine 0.6 mg/dL (0.8-1.5) L 11/13/19 04:33 Estimated GFR > 60 ml/min 11/13/19 04:33 BUN/Creatinine Ratio 25 % 11/13/19 04:33 Glucose 85 mg/dL (75-100) 11/13/19 04:33 POC Glucose 75 (70-105) 11/13/19 06:33 Hemoglobin A1c 5.7 % (4-6) 10/06/19 05:36 Lactic Acid 1.10 mmol/L (0.7-2.0) 10/13/19 04:20 Calcium 9.3 mg/dL (8.4-10.2) 11/13/19 04:33 Ionized Calcium 5.2 mg/dL (4.8-5.6) 10/18/19 07:41 Phosphorus 2.70 mg/dL (2.5-4.5) 11/02/19 12:43 Magnesium 2.40 mg/dL (1.7-2.3) H 11/02/19 12:43 Total Bilirubin 1.10 mg/dL (0.1-1.2) 10/26/19 06:15 Direct Bilirubin 0.7 mg/dL (0-0.2) H 10/23/19 10:44 Indirect Bilirubin 0.1 mg/dL 10/23/19 10:44 AST 23 units/L (5-40) 10/26/19 06:15 ALT 13 units/L (7-56) 10/26/19 06:15 Alkaline Phosphatase 148 units/L (35-129) H 10/26/19 06:15 Ammonia 49.0 umol/L (25-60) 10/13/19 04:20 Troponin T < 0.010 ng/mL (0.00-0.029) 10/09/19 17:23 C-Reactive Protein 30.60 mg/dL (0.00-1.30) H 10/15/19 04:32 Serum Total Protein 5.2 g/dL (6.1-8.1) L 10/11/19 09:00 Total Protein 5.9 g/dL (6.3-8.2) L 10/26/19 06:15 Albumin 2.4 g/dL (3.9-5) L 10/26/19 06:15 Albumin/Globulin Ratio 0.7 % 10/26/19 06:15 Prealbumin 0.030 g/L (0.200-0.400) L 10/15/19 04:32 [id number] See scanned result 10/11/19 Unknown [id number] See scanned result 10/11/19 Unknown Beta Globulins See scanned result 10/11/19 Unknown Gamma Globulins See scanned result 10/11/19 Unknown Abnorm Protein Band 1 see below 10/11/19 09:00 PEP Interpretation See scanned result 10/11/19 Unknown Triglycerides 185 mg/dL (2-149) H 10/26/19 06:15 Urine Color Yellow (Yellow) 10/26/19 Unknown Urine Turbidity Clear (Clear) 10/26/19 Unknown Urine pH 9.0 (5.0-7.0) H 10/26/19 Unknown Ur Specific [place] 1.011 (1.003-1.030) 10/26/19 Unknown Urine Protein 30 mg/dl mg/dL (Negative) 10/26/19 Unknown Urine Glucose (UA) Neg mg/dL (Negative) 10/26/19 Unknown Urine Ketones Neg mg/dL (Negative) 10/26/19 Unknown Urine Blood Neg (Negative) 10/26/19 Unknown Urine Nitrite Neg (Negative) 10/26/19 Unknown Urine Bilirubin Neg (Negative) 10/26/19 Unknown Urine Urobilinogen < 2.0 mg/dL (<2.0) 10/26/19 Unknown Ur Leukocyte Esterase Neg (Negative) 10/26/19 Unknown Urine WBC (Auto) 1.0 /HPF (0.0-6.0) 10/26/19 Unknown Urine RBC (Auto) 1.0 /HPF (0.0-6.0) 10/26/19 Unknown Urine Bacteria (Auto) 1+ /HPF (Negative) 10/11/19 06:23 Urine Mucus Few /HPF 10/26/19 Unknown Urine Eosinophils None seen (None Seen) 10/11/19 06:23 Ur Random Creatinine See scanned result 10/11/19 Unknown U Random Total Protein See scanned result 10/11/19 Unknown Urine Creatinine 116.8 mg/dL (0.1-20.0) H 10/11/19 06:23 Urine Creatinine 118.2 mg/dL (0.1-20.0) H 10/11/19 06:23 Protein/Creatinin Ratio See scanned result 10/11/19 Unknown Urine Sodium 14 mmol/L 10/11/19 06:23 Urine Total Protein 104 mg/dL (5-11.8) H 10/11/19 06:23 Urine Total Protein 105 mg/dL (5-11.8) H 10/11/19 06:23 U Abnormal Prot Band 1 See scanned result 10/11/19 Unknown U Abnormal Prot Band 2 See scanned result 10/11/19 Unknown U Abnormal Prot Band 3 See scanned result 10/11/19 Unknown Vancomycin Trough 5.7 ug/mL (5.0-20.0) 11/05/19 09:00 Random Vancomycin 9.6 ug/mL (0-40.0) 11/03/19 03:42 Digoxin 0.7 ng/mL (0.9-2.0) L 10/19/19 04:21 Blood Type A POSITIVE 10/23/19 11:50 Antibody Screen Negative 10/23/19 11:50 Crossmatch See Detail 10/23/19 11:50 Active Medications - Current Medications Current Medications: Generic Name Dose Route Start Last Admin Trade Name Freq PRN Reason Stop Dose Admin Acetaminophen 650 mg 10/25/19 13:00 11/03/19 16:03 Tylenol FEEDTUBE 650 mg Q4H PRN Administration Fever >100.5 Acetaminophen/Hydrocodone Bitart 7.5 mg 11/07/19 16:57 11/12/19 21:24 Hydrocodone/Apap 7.5-325 FEEDTUBE 7.5 mg Q4H PRN Administration Pain, Moderate (4-6) Albuterol/Ipratropium 1 ampul 10/06/19 02:00 11/13/19 02:16 Duoneb *Not For Prn Use* IH 1 ampul Q6HRT VERÓNICA Administration Amiodarone HCl 200 mg 10/23/19 13:00 11/12/19 10:00 Cordarone PO 200 mg QDAY VERÓNICA Administration Lipase/Protease/Amylase 1 each 10/20/19 10:37 Pancreazanamika Moreno 10,500 Unit FEEDTUBE PRN PRN For Clogged Feeding Tube Arformoterol Tartrate 15 mcg 10/06/19 08:30 11/12/19 08:49 Brovana Nebu IH 15 mcg Q12HRT VERÓNICA Administration Budesonide 0.5 mg 10/07/19 12:20 11/12/19 08:49 Pulmicort IH 0.5 mg Q12HRT VERÓNICA Administration Citalopram Hydrobromide 20 mg 10/27/19 12:00 11/12/19 10:00 Celexa PO 20 mg DAILY VERÓNICA Administration Enoxaparin Sodium 40 mg 11/05/19 22:00 11/12/19 21:21 Enoxaparin SUB-Q 40 mg QDAY@2200 VERÓNICA Administration Haloperidol Lactate 5 mg 10/25/19 18:22 11/12/19 03:33 Haldol IV 5 mg Q6H PRN Administration Agitation Hydralazine HCl 10 mg 10/28/19 14:09 11/02/19 15:34 Apresoline IV 10 mg Q4HR PRN Administration Hypertension Hydromorphone HCl 2 mg 10/25/19 12:35 11/12/19 22:59 Dilaudid IV 2 mg Q4H PRN Administration Pain , Severe (7-10) Insulin Human Lispro 0 unit 10/14/19 12:00 11/13/19 06:36 Humalog SUB-Q Not Given Q6HR [facility] Protocol Lisinopril 20 mg 10/30/19 10:00 11/12/19 10:00 Zestril PO 20 mg QDAY [facility] Administration Metoprolol Tartrate 2.5 mg 10/15/19 15:34 11/01/19 18:00 Metoprolol IV 2.5 mg Q4HR PRN Administration HR >130 Metoprolol Tartrate 50 mg 10/25/19 14:00 11/13/19 06:37 Metoprolol PO Not Given Q8HR [facility] Multi-Ingred Cream/Lotion/Oil/Oint 1 applic 10/14/19 02:19 Artificial Tears Ophth Oint OU Q4HR PRN Dry Eye(s) Pantoprazole Sodium 40 mg 10/15/19 10:00 11/12/19 10:00 Protonix IV 40 mg QDAY VERÓNICA Administration Simple Syrup 15 ml 10/20/19 10:37 Simple Syrup FEEDTUBE PRN PRN Hypoglycemia Simple Syrup 30 ml 10/20/19 10:37 Simple Syrup FEEDTUBE PRN PRN Hypoglycemia Sodium Bicarbonate 325 mg 10/20/19 10:37 Sodium Bicarbonate FEEDTUBE PRN PRN For Clogged Feeding Tube Sodium Chloride 10 ml 11/07/19 19:32 11/08/19 09:10 Sodium Chloride Flush Syringe 10 Ml IV 10 ml PRN PRN Administration LINE FLUSH Zolpidem Tartrate 5 mg 11/10/19 21:00 11/11/19 03:30 Ambien FEEDTUBE 5 mg QHS PRN Administration Sleep Nutrition/Malnutrition Assess - Dietary Evaluation Nutrition/Malnutrition Findings: Nutrition Notes Start: 10/08/19 11:36 Freq: Status: Active Protocol: Document 11/12/19 13:31 LM (Rec: 11/12/19 13:38 LM [email or web address]) Nutrition Notes Initial or Follow up Reassessment Current Diagnosis Acute Kidney Injury,COPD, Hypertension Other Pertinent Diagnosis intra-abdominal infection, disruption of bowel anastomosis, LE edema Current Diet Mechanical soft Labs/Tests POC glu 120 Pertinent Medications Reviewed Height 6 ft Weight 145 kg [place] Body Weight (kg) 80.90 BMI 43.3 Weight Status Morbidly Obese Subjective/Other Information Unable to see pt as nedside procedure taking place. Pt's diet advanced to full liquid over the weekend and now pt is on mechanical soft diet. Burn Absent Trauma Absent GI Symptoms None Minimum of two criteria No physical signs of malnutrition Fluid Accumulation Mild (non-severe) #2 Nutrition Diagnosis Inadequate oral intake Diagnosis Progress(for reassessment Continues documentation) #1 Nutrition Diagnosis Increased nutrient needs ( specify in comment below) Diagnosis Progress(for reassessment Continues documentation) Is patient on ventilator? No Is Patient Ambulatory and/or Out of Bed No REE-([facility]-confined to bed) 2785.236 Kcal/Kg value to use for calculation 14 Approximate Energy Requirements Using 2030 kcal/Kg Calculation Used for Recommendations Kcal/kg Additional Notes Protein: 136-169g (1.2-1.5g/kg ) AdjBW 113kg Fluid 1 ml/kcal or per MD Nutrition Intervention Change Diet Order: Continue mechanical soft Goal #1 Meet at least 80% of energy and protein needs via PO intakes Goal #2 diet tolerance Anticipated Discharge Needs: unable to determine at this time Follow-Up By: 11/15/19 Additional Comments F/U for PO intakes, tolerance
[2019-11-13] MEDS: ARFORMOTEROL 15 MCG/2 ML NEBU IH SCH ×3 (09:52→20:35)
[2019-11-13] MEDS: BUDESONIDE 0.5 MG/2 ML NEBU IH SCH ×3 (09:52→20:35)
--- NOTE | 2019-11-13 13:15 | Progress Note ---
Assessment and Plan 54 y/o male with anastomic leak 11/13: Pulm status stable. Wean FiO2 as tolerated. CM working on placement. PT/OT. Will continue to follow. 11/12/19: Spoke with surgery this am. Currently pleased with progress. Reviewed IR note, and they plan to remove CT today. Continue IS. Will speak with CM about looking into rehabs directly from IMCU as oppose to transferring to the floor first. 11/06: Chest tube intact. No air leak. Will ask IR if catheter can be pulled out normally (i.e. not some form of tunneled catheter). If so will have them take it out later this week. If IM beds available, good candidate for there, likely not quite ready for floor yet. 11/04: Stable self extubation. Continue chest tube to suction. Will likely start waterseal tomorrow. Goad maybe to get CT out Tuesday. All other drains per surgery. Encouraged use of IS regularly at the bedside and suctioning as needed per . 11/03: Looks clinically better. Na was better on repeat labs. Spoke with and surgery to update them both. Most likely will attempt extubation in the am. Will hold feeds for about an hour in the morning prior to extubation then restart. 11/02: Repeat labs this am. Hard time believing that 2 liters of normal saline made his sodium increase that much. Also, once i discuss with surgery, may consider giving more blood. Will also hold tube feeds briefly as well. In case any procedures. Lovenox held last night. Continue vent support 11/01: Spoke with Dr. Krause this am and understand his concerns. Have started the transfer process. Most ICU's throughout the city are on diversion or full. [facility] has received his Facesheet and we are awaiting to hear back from them. CXR is clear. Minimal vent settings. Will continue supportive care for now. Follow up any new ID recs given increasing white and fever. 10/31: Will check CXR tomorrow. Continue chest tube to suction. Will likely stay in until extubated. Continue drains. Explained to staff to be extremely careful with these drains so that they do not come out. 10/30: Acute on chronic respiratory failure requiring reintubation. Appreciate Anesthesia assistance as he was a difficult intubation when we had to change his tube out about 1 week ago. Will continue on 100% until after Scans and then start to wean back down. CXR yesterday looked like pulmonary edema but improved today with positive pressure. Continue supportive care and await results of scans. 10/29: Discussed today on rounds. Patient had some issues over the weekend with the ICE chips and liquids. Will obtain speech consult/eval prior to restarting clears today. Spoke with nutrition and they will adjust tube feeds with new goal. Once at goal will start to taper off TPN. ordered Incentive madhu to bedside. Will also restart home dose of elaine today. pain control and drainage monitoring. Will continue ICU care. 10/26: Patient stable overall. Not ready for floor. Would be ok with step down if beds are needed. If spikes temp again will order blood cultures x2, urine culture, UA and repeat CXR. Gave an additional 40 of lasix this am. Will give more potassium replacement. Continue trickle feeds for now. Will continue PO meds and restart home dose of citalopram. Wean FiO2 and flow for sats >88%. Mildly hypertensive but this was secondary to agitation. Normalizing now. 10/25: Will extubate today. Will use HFNC if distress or hypoxemia is noted. Not a good candidate for bipap given his recent abdominal issues. Spoke with who is now at bedside and surgery. Will continue to attempt to achieve net negative state daily. Hold on further albumin administration. Hypernatremia is iatrogenic from lasix administration Worse case scenario, will re-intubate with anesthesia. 10/24: Responding well to lasix and protein therapy. Will give 2 more doses of lasix today. Consider one for tonight as well. Last albumin today at 1800. CXR is stable, still with layering bilateral pleural effusions. Will reassess again tomorrow. Reviewed all other data processing systems consultant notes. Spoke with sisters at bedside, updated and spoke with surgery. 10/23: Long discussion with surgery and via phone. Anasarca is likely from decreased oncotic pressure and immobility of several days now that abdomen is finally closed. Now fluid is essentially leaking into the interstitium now that the abdomen is shut and there is increased intra-abdominal pressure. Total Protein is 4.5 and albumin is 1.2. This is to be expected given current illness. Will attempt to increase oncotic pressure with 2 units of PRBC's and albumin infusions for the next 24 hours starting at midnight tonight. Will give lasix inbetween transfusions and then again tonight. CXR is consistent with pulmonary edema volume overload. Will continue vent for now and after significant volume removal then will attempt extubation. Discussed with and she understands. Will continue to monitor. Agree with trickle feeds and cards has switched amio over to PO to be given through the G-tube. If tolerates, hopeful to be rid of TPN soon as this is necessary but excessive volume as well. 10/22: Added diprovan as more sedation was needed. Hopefully once closed and no leaks, patient can be extubated. Cards very concerned about length of time for IV amio. Will discuss with surgery the time frame that gut can be used. 10/21: Will hold on weaning until abdomen is closed, especially knowing mental status is good. Will focus on pain control. Replace electrolytes. Appreciate Surgery recs and detail. Follow up any new recs from cards. Or tomorrow for closure Subjective Date of service: 11/13/19 Principal diagnosis: acute renal failure Interval history: No acute events. CT pulled yesterday by IR. Stable. Lung up on post removal film. Sats good on NC. no distress noted. Objective Vital Signs - 12hr 11/13/19 11/13/19 11/13/19 02:30 02:31 03:43 Temperature 98.1 F Pulse Rate Pulse Rate [ 88 Anterior Bilateral Throughout] Respiratory 20 Rate [Anterior Bilateral Throughout] Blood Pressure O2 Sat by Pulse 96 Oximetry 11/13/19 11/13/19 11/13/19 06:37 08:00 09:52 Temperature 99.5 F Pulse Rate 79 Pulse Rate [ Anterior Bilateral Throughout] Respiratory Rate [Anterior Bilateral Throughout] Blood Pressure 97/26 O2 Sat by Pulse 92 Oximetry 11/13/19 11/13/19 10:00 12:00 Temperature 99.4 F Pulse Rate Pulse Rate [ 80 Anterior Bilateral Throughout] Respiratory 18 Rate [Anterior Bilateral Throughout] Blood Pressure O2 Sat by Pulse Oximetry Constitutional: no acute distress, alert, other (obese) Eyes: non-icteric ENT: oropharynx moist Neck: supple Effort: normal Ascultation: Bilateral: diminished breath sounds (bases) Cardiovascular: regular rate and rhythm (no mrg) Gastrointestinal: tender, other (obese, distended, ostomy in place; wound vac in place) Integumentary: normal Extremities: no cyanosis, pink and warm, edema (1+ bilateral LE edema) Neurologic: normal mental status, non-focal exam, pupils equal and round Psychiatric: mood appropriate, affect normal CBC and BMP: 11/13/19 04:33 11/13/19 04:33 ABG, PT/INR, D-dimer: ABG POC ABG pH 7.422 (7.35-7.45) 11/03/19 04:28 ABG pH 7.390 pH Units (7.350-7.450) 10/23/19 04:47 POC ABG pCO2 45.4 (35-45) H 11/03/19 04:28 ABG pCO2 48.4 mm Hg 10/23/19 04:47 POC ABG pO2 83 (80-105) 11/03/19 04:28 ABG pO2 68.9 mm Hg (80.0-90.0) L 10/23/19 04:47 POC ABG HCO3 29.6 (22-26 mml/L) 11/03/19 04:28 POC ABG Total CO2 31 (23-27mmol/L) 11/03/19 04:28 POC ABG O2 Sat 96 11/03/19 04:28 ABG O2 Saturation 96.6 % (95.0-99.0) 10/23/19 04:47 Abnormal lab findings: Abnormal Labs 10/06/19 10/06/19 10/07/19 05:36 05:36 05:54 WBC 21.8 H 21.5 H RBC 3.55 L Hgb 10.9 L Hct 32.7 L MCHC RDW Plt Count Lymph % (Auto) [place] % (Auto) Lymph # [place] # Seg Neutrophils % Seg Neuts % (Manual) 91.0 H Lymphocytes % (Manual) 2.0 L Seg Neutrophils # Seg Neutrophils # Man 19.8 H Lymphocytes # (Manual) 0.4 L Monocytes # (Manual) 1.1 H POC ABG pH ABG pH POC ABG pCO2 POC ABG pO2 ABG pO2 ABG HCO3 ABG Base Excess ABG Hemoglobin Oxyhemoglobin Sodium 135 L Potassium Chloride 95.9 L Carbon Dioxide BUN Creatinine 0.7 L Glucose POC Glucose Calcium Phosphorus Magnesium Direct Bilirubin AST Alkaline Phosphatase C-Reactive Protein Serum Total Protein Total Protein 5.7 L Albumin 2.5 L Prealbumin Uzrcw-9-Ldphbzdjo Rpvjq-3-Ylywywaqd Gamma Globulins PEP Interpretation Triglycerides Urine pH Urine Creatinine Urine Total Protein Vancomycin Trough Digoxin Crossmatch 10/07/19 10/09/19 10/09/19 05:54 10:52 10:52 WBC 16.6 H RBC Hgb Hct MCHC RDW Plt Count 498 H Lymph % (Auto) [place] % (Auto) Lymph # [place] # Seg Neutrophils % Seg Neuts % (Manual) 93.0 H Lymphocytes % (Manual) 5.0 L Seg Neutrophils # Seg Neutrophils # Man 15.4 H Lymphocytes # (Manual) 0.8 L Monocytes # (Manual) POC ABG pH ABG pH POC ABG pCO2 POC ABG pO2 ABG pO2 ABG HCO3 ABG Base Excess ABG Hemoglobin Oxyhemoglobin Sodium Potassium Chloride 97.9 L Carbon Dioxide 20 L D BUN 23 H Creatinine 1.7 H D Glucose 109 H POC Glucose Calcium 8.1 L Phosphorus Magnesium Direct Bilirubin AST Alkaline Phosphatase C-Reactive Protein Serum Total Protein Total Protein Albumin Prealbumin Umqnr-4-Iursrbwfk Blpzn-7-Spbnvwguz Gamma Globulins PEP Interpretation Triglycerides Urine pH Urine Creatinine Urine Total Protein Vancomycin Trough Digoxin Crossmatch 10/09/19 10/10/19 10/10/19 17:23 05:30 05:30 WBC 14.6 H RBC Hgb 11.1 L Hct 33.5 L MCHC RDW Plt Count 527 H Lymph % (Auto) [place] % (Auto) Lymph # [place] # Seg Neutrophils % Seg Neuts % (Manual) Lymphocytes % (Manual) Seg Neutrophils # Seg Neutrophils # Man Lymphocytes # (Manual) Monocytes # (Manual) POC ABG pH ABG pH POC ABG pCO2 POC ABG pO2 ABG pO2 ABG HCO3 ABG Base Excess ABG Hemoglobin Oxyhemoglobin Sodium 130 L D Potassium 5.1 H Chloride 90.0 L 91.0 L Carbon Dioxide 20 L 20 L BUN 27 H 35 H Creatinine 1.9 H 2.0 H Glucose 104 H POC Glucose Calcium Phosphorus Magnesium Direct Bilirubin AST Alkaline Phosphatase C-Reactive Protein Serum Total Protein Total Protein Albumin Prealbumin Ygbkj-5-Mmudazvol Itzzk-5-Gocapopbk Gamma Globulins PEP Interpretation Triglycerides Urine pH Urine Creatinine Urine Total Protein Vancomycin Trough Digoxin Crossmatch 10/10/19 10/10/19 10/11/19 08:33 08:44 05:41 WBC 13.2 H RBC Hgb 11.3 L Hct 33.8 L MCHC RDW 15.3 H Plt Count 543 H Lymph % (Auto) [place] % (Auto) Lymph # [place] # Seg Neutrophils % Seg Neuts % (Manual) Lymphocytes % (Manual) Seg Neutrophils # Seg Neutrophils # Man Lymphocytes # (Manual) Monocytes # (Manual) POC ABG pH ABG pH POC ABG pCO2 POC ABG pO2 ABG pO2 ABG HCO3 ABG Base Excess ABG Hemoglobin Oxyhemoglobin Sodium Potassium Chloride Carbon Dioxide BUN Creatinine Glucose 113 H POC Glucose 117 H Calcium Phosphorus Magnesium Direct Bilirubin AST Alkaline Phosphatase C-Reactive Protein Serum Total Protein Total Protein Albumin Prealbumin Srnuh-1-Pglxgrenf Oevve-7-Qelqssrks Gamma Globulins PEP Interpretation Triglycerides Urine pH Urine Creatinine Urine Total Protein Vancomycin Trough Digoxin Crossmatch 10/11/19 10/11/19 10/11/19 05:41 06:23 06:23 WBC RBC Hgb Hct MCHC RDW Plt Count Lymph % (Auto) [place] % (Auto) Lymph # [place] # Seg Neutrophils % Seg Neuts % (Manual) Lymphocytes % (Manual) Seg Neutrophils # Seg Neutrophils # Man Lymphocytes # (Manual) Monocytes # (Manual) POC ABG pH ABG pH POC ABG pCO2 POC ABG pO2 ABG pO2 ABG HCO3 ABG Base Excess ABG Hemoglobin Oxyhemoglobin Sodium 134 L Potassium Chloride 96.3 L Carbon Dioxide BUN 37 H Creatinine Glucose 58 L POC Glucose Calcium Phosphorus 4.90 H Magnesium Direct Bilirubin AST Alkaline Phosphatase C-Reactive Protein Serum Total Protein Total Protein Albumin Prealbumin Ehmgd-9-Ktstjjivm Ztqwg-2-Dsuuqpbkh Gamma Globulins PEP Interpretation Triglycerides Urine pH Urine Creatinine 118.2 H 116.8 H Urine Total Protein 105 H 104 H Vancomycin Trough Digoxin Crossmatch 10/11/19 10/12/19 10/12/19 09:00 06:09 06:09 WBC 13.8 H RBC 3.39 L Hgb 10.2 L Hct 30.9 L MCHC RDW 15.5 H Plt Count 459 H Lymph % (Auto) [place] % (Auto) Lymph # [place] # Seg Neutrophils % Seg Neuts % (Manual) Lymphocytes % (Manual) Seg Neutrophils # Seg Neutrophils # Man Lymphocytes # (Manual) Monocytes # (Manual) POC ABG pH ABG pH POC ABG pCO2 POC ABG pO2 ABG pO2 ABG HCO3 ABG Base Excess ABG Hemoglobin Oxyhemoglobin Sodium 131 L Potassium Chloride 96.2 L Carbon Dioxide 21 L BUN 43 H Creatinine Glucose 72 L POC Glucose Calcium Phosphorus Magnesium Direct Bilirubin AST Alkaline Phosphatase C-Reactive Protein Serum Total Protein 5.2 L Total Protein Albumin 1.9 L Prealbumin Dbaoh-1-Afltntnri 0.9 H Veyro-5-Nyevllbjn 1.0 H Gamma Globulins 0.7 L PEP Interpretation see below H Triglycerides Urine pH Urine Creatinine Urine Total Protein Vancomycin Trough Digoxin Crossmatch 10/12/19 10/12/19 10/12/19 08:20 09:30 09:30 WBC RBC Hgb Hct MCHC RDW Plt Count Lymph % (Auto) [place] % (Auto) Lymph # [place] # Seg Neutrophils % Seg Neuts % (Manual) Lymphocytes % (Manual) Seg Neutrophils # Seg Neutrophils # Man Lymphocytes # (Manual) Monocytes # (Manual) POC ABG pH ABG pH POC ABG pCO2 POC ABG pO2 63 L ABG pO2 ABG HCO3 ABG Base Excess ABG Hemoglobin Oxyhemoglobin Sodium Potassium Chloride Carbon Dioxide BUN Creatinine Glucose POC Glucose Calcium Phosphorus Magnesium 2.50 H Direct Bilirubin 0.3 H AST Alkaline Phosphatase C-Reactive Protein Serum Total Protein Total Protein 5.1 L Albumin 2.2 L Prealbumin Kadux-7-Hblfafdky Fkcjc-5-Waarswsgx Gamma Globulins PEP Interpretation Triglycerides Urine pH Urine Creatinine Urine Total Protein Vancomycin Trough Digoxin Crossmatch 10/13/19 10/13/19 10/13/19 04:20 04:20 13:20 WBC 15.7 H RBC 3.64 L Hgb 10.9 L Hct 33.1 L MCHC RDW 15.8 H Plt Count 488 H Lymph % (Auto) [place] % (Auto) Lymph # [place] # Seg Neutrophils % Seg Neuts % (Manual) Lymphocytes % (Manual) Seg Neutrophils # Seg Neutrophils # Man Lymphocytes # (Manual) Monocytes # (Manual) POC ABG pH ABG pH POC ABG pCO2 POC ABG pO2 ABG pO2 ABG HCO3 ABG Base Excess ABG Hemoglobin Oxyhemoglobin Sodium Potassium Chloride Carbon Dioxide BUN 28 H Creatinine Glucose POC Glucose Calcium Phosphorus Magnesium Direct Bilirubin AST Alkaline Phosphatase C-Reactive Protein Serum Total Protein Total Protein Albumin Prealbumin Xricz-3-Bjnmkrbak Hryel-3-Qebkvjuyl Gamma Globulins PEP Interpretation Triglycerides Urine pH Urine Creatinine Urine Total Protein Vancomycin Trough Digoxin Crossmatch See Detail 1110/13/19 10/14/19 18:24 20:05 04:47 WBC 24.2 H RBC Hgb 10.9 L Hct 34.2 L MCHC RDW 17.0 H Plt Count 442 H Lymph % (Auto) [place] % (Auto) Lymph # [place] # Seg Neutrophils % Seg Neuts % (Manual) Lymphocytes % (Manual) Seg Neutrophils # Seg Neutrophils # Man Lymphocytes # (Manual) Monocytes # (Manual) POC ABG pH ABG pH 7.180 L* 7.278 L POC ABG pCO2 POC ABG pO2 ABG pO2 130.7 H ABG HCO3 ABG Base Excess -6.5 L -6.5 L ABG Hemoglobin 12.2 L 12.3 L Oxyhemoglobin 92.9 L Sodium Potassium Chloride Carbon Dioxide BUN Creatinine Glucose POC Glucose Calcium Phosphorus Magnesium Direct Bilirubin AST Alkaline Phosphatase C-Reactive Protein Serum Total Protein Total Protein Albumin Prealbumin Ryjsu-2-Yaaldntph Gaiuz-8-Jvqyvyfjj Gamma Globulins PEP Interpretation Triglycerides Urine pH Urine Creatinine Urine Total Protein Vancomycin Trough Digoxin Crossmatch 10/14/19 10/14/19 10/14/19 04:47 05:40 10:14 WBC RBC Hgb Hct MCHC RDW Plt Count Lymph % (Auto) [place] % (Auto) Lymph # [place] # Seg Neutrophils % Seg Neuts % (Manual) Lymphocytes % (Manual) Seg Neutrophils # Seg Neutrophils # Man Lymphocytes # (Manual) Monocytes # (Manual) POC ABG pH ABG pH POC ABG pCO2 POC ABG pO2 ABG pO2 76.3 L ABG HCO3 19.1 L ABG Base Excess -5.8 L ABG Hemoglobin 10.9 L Oxyhemoglobin 93.4 L Sodium Potassium 5.1 H D Chloride 109.2 H Carbon Dioxide 17 L BUN 38 H Creatinine 1.8 H D Glucose 104 H POC Glucose Calcium 7.4 L Phosphorus 5.60 H Magnesium Direct Bilirubin AST Alkaline Phosphatase C-Reactive Protein Serum Total Protein Total Protein Albumin Prealbumin Rgyhi-4-Mmxmbhlhv Utnyy-4-Tltelihre Gamma Globulins PEP Interpretation Triglycerides Urine pH Urine Creatinine Urine Total Protein Vancomycin Trough Digoxin Crossmatch 10/14/19 10/15/19 10/15/19 23:46 04:32 04:32 WBC 15.5 H RBC 2.89 L Hgb 8.8 L Hct 27.3 L D MCHC RDW 16.6 H Plt Count Lymph % (Auto) [place] % (Auto) Lymph # [place] # Seg Neutrophils % Seg Neuts % (Manual) Lymphocytes % (Manual) Seg Neutrophils # Seg Neutrophils # Man Lymphocytes # (Manual) Monocytes # (Manual) POC ABG pH ABG pH POC ABG pCO2 POC ABG pO2 ABG pO2 ABG HCO3 ABG Base Excess ABG Hemoglobin Oxyhemoglobin Sodium 147 H Potassium Chloride 114.0 H Carbon Dioxide 19 L BUN 42 H Creatinine Glucose 112 H POC Glucose 113 H Calcium 7.3 L Phosphorus Magnesium Direct Bilirubin AST 72 H Alkaline Phosphatase C-Reactive Protein 30.60 H Serum Total Protein Total Protein 4.0 L D Albumin 1.7 L Prealbumin 0.030 L Lqzht-8-Nhtpsjfuk Oentv-0-Imxfjnrhy Gamma Globulins PEP Interpretation Triglycerides Urine pH Urine Creatinine Urine Total Protein Vancomycin Trough Digoxin Crossmatch 10/15/19 10/15/19 10/15/19 05:30 12:08 17:23 WBC RBC Hgb Hct MCHC RDW Plt Count Lymph % (Auto) [place] % (Auto) Lymph # [place] # Seg Neutrophils % Seg Neuts % (Manual) Lymphocytes % (Manual) Seg Neutrophils # Seg Neutrophils # Man Lymphocytes # (Manual) Monocytes # (Manual) POC ABG pH ABG pH 7.296 L POC ABG pCO2 POC ABG pO2 ABG pO2 114.7 H ABG HCO3 ABG Base Excess -3.7 L ABG Hemoglobin 8.9 L Oxyhemoglobin Sodium Potassium Chloride Carbon Dioxide BUN Creatinine Glucose POC Glucose 106 H 106 H Calcium Phosphorus Magnesium Direct Bilirubin AST Alkaline Phosphatase C-Reactive Protein Serum Total Protein Total Protein Albumin Prealbumin Mebkz-8-Sphxusrdw Blwua-4-Ueijtygig Gamma Globulins PEP Interpretation Triglycerides Urine pH Urine Creatinine Urine Total Protein Vancomycin Trough Digoxin Crossmatch 10/16/19 10/16/19 10/16/19 00:07 04:44 05:24 WBC RBC Hgb Hct MCHC RDW Plt Count Lymph % (Auto) [place] % (Auto) Lymph # [place] # Seg Neutrophils % Seg Neuts % (Manual) Lymphocytes % (Manual) Seg Neutrophils # Seg Neutrophils # Man Lymphocytes # (Manual) Monocytes # (Manual) POC ABG pH ABG pH POC ABG pCO2 POC ABG pO2 ABG pO2 ABG HCO3 ABG Base Excess ABG Hemoglobin Oxyhemoglobin Sodium 150 H Potassium Chloride 115.8 H Carbon Dioxide BUN 35 H Creatinine Glucose 129 H POC Glucose 119 H 129 H Calcium 7.3 L Phosphorus 1.80 L D Magnesium Direct Bilirubin AST Alkaline Phosphatase C-Reactive Protein Serum Total Protein Total Protein Albumin Prealbumin Yevbr-8-Rxuaqebij Yhumh-9-Rdlwuqnue Gamma Globulins PEP Interpretation Triglycerides Urine pH Urine Creatinine Urine Total Protein Vancomycin Trough Digoxin Crossmatch 10/16/19 10/16/19 10/16/19 06:53 09:20 11:58 WBC 14.6 H RBC 2.70 L Hgb 8.1 L Hct 25.2 L MCHC RDW 16.7 H Plt Count Lymph % (Auto) [place] % (Auto) Lymph # [place] # Seg Neutrophils % Seg Neuts % (Manual) 79.0 H Lymphocytes % (Manual) 4.0 L Seg Neutrophils # Seg Neutrophils # Man 11.5 H Lymphocytes # (Manual) 0.6 L Monocytes # (Manual) POC ABG pH ABG pH POC ABG pCO2 47.0 H POC ABG pO2 ABG pO2 ABG HCO3 ABG Base Excess ABG Hemoglobin Oxyhemoglobin Sodium Potassium Chloride Carbon Dioxide BUN Creatinine Glucose POC Glucose Calcium Phosphorus Magnesium Direct Bilirubin AST Alkaline Phosphatase C-Reactive Protein Serum Total Protein Total Protein Albumin Prealbumin Cteqn-6-Tvoibfxaa Pkiyy-9-Bglolkucc Gamma Globulins PEP Interpretation Triglycerides Urine pH Urine Creatinine Urine Total Protein Vancomycin Trough Digoxin Crossmatch See Detail 10/16/19 10/16/19 10/16/19 15:23 17:50 23:58 WBC RBC Hgb Hct MCHC RDW Plt Count Lymph % (Auto) [place] % (Auto) Lymph # [place] # Seg Neutrophils % Seg Neuts % (Manual) Lymphocytes % (Manual) Seg Neutrophils # Seg Neutrophils # Man Lymphocytes # (Manual) Monocytes # (Manual) POC ABG pH ABG pH POC ABG pCO2 POC ABG pO2 ABG pO2 ABG HCO3 ABG Base Excess ABG Hemoglobin Oxyhemoglobin Sodium Potassium Chloride Carbon Dioxide BUN Creatinine Glucose POC Glucose 221 H 201 H 179 H Calcium Phosphorus Magnesium Direct Bilirubin AST Alkaline Phosphatase C-Reactive Protein Serum Total Protein Total Protein Albumin Prealbumin Iznam-5-Xdssbvahx Fgfgj-7-Nwlbapzhl Gamma Globulins PEP Interpretation Triglycerides Urine pH Urine Creatinine Urine Total Protein Vancomycin Trough Digoxin Crossmatch 10/17/19 10/17/19 10/17/19 04:08 04:08 05:41 WBC 22.3 H RBC 3.35 L Hgb 10.0 L Hct 31.2 L D MCHC RDW 16.1 H Plt Count Lymph % (Auto) [place] % (Auto) Lymph # [place] # Seg Neutrophils % Seg Neuts % (Manual) Lymphocytes % (Manual) Seg Neutrophils # Seg Neutrophils # Man Lymphocytes # (Manual) Monocytes # (Manual) POC ABG pH 7.310 L ABG pH POC ABG pCO2 52.8 H POC ABG pO2 70 L ABG pO2 ABG HCO3 ABG Base Excess ABG Hemoglobin Oxyhemoglobin Sodium 147 H Potassium Chloride 114.9 H Carbon Dioxide BUN 36 H Creatinine Glucose 165 H POC Glucose Calcium 6.9 L Phosphorus 2.20 L D Magnesium Direct Bilirubin AST Alkaline Phosphatase C-Reactive Protein Serum Total Protein Total Protein Albumin Prealbumin Mymog-0-Beorkmheg Dtqrn-3-Guntvibcr Gamma Globulins PEP Interpretation Triglycerides Urine pH Urine Creatinine Urine Total Protein Vancomycin Trough Digoxin Crossmatch 10/17/19 10/17/19 10/17/19 05:42 11:33 18:17 WBC RBC Hgb Hct MCHC RDW Plt Count Lymph % (Auto) [place] % (Auto) Lymph # [place] # Seg Neutrophils % Seg Neuts % (Manual) Lymphocytes % (Manual) Seg Neutrophils # Seg Neutrophils # Man Lymphocytes # (Manual) Monocytes # (Manual) POC ABG pH ABG pH POC ABG pCO2 POC ABG pO2 ABG pO2 ABG HCO3 ABG Base Excess ABG Hemoglobin Oxyhemoglobin Sodium Potassium Chloride Carbon Dioxide BUN Creatinine Glucose POC Glucose 149 H 154 H 163 H Calcium Phosphorus Magnesium Direct Bilirubin AST Alkaline Phosphatase C-Reactive Protein Serum Total Protein Total Protein Albumin Prealbumin Dhnwo-1-Noruuatbe Wdcju-4-Ezfyexjjb Gamma Globulins PEP Interpretation Triglycerides Urine pH Urine Creatinine Urine Total Protein Vancomycin Trough Digoxin Crossmatch 10/17/19 10/18/19 10/18/19 23:34 03:29 04:50 WBC RBC Hgb Hct MCHC RDW Plt Count Lymph % (Auto) [place] % (Auto) Lymph # [place] # Seg Neutrophils % Seg Neuts % (Manual) Lymphocytes % (Manual) Seg Neutrophils # Seg Neutrophils # Man Lymphocytes # (Manual) Monocytes # (Manual) POC ABG pH ABG pH POC ABG pCO2 POC ABG pO2 ABG pO2 78.8 L ABG HCO3 ABG Base Excess ABG Hemoglobin 8.8 L Oxyhemoglobin Sodium Potassium Chloride 111.8 H Carbon Dioxide BUN 27 H Creatinine 0.6 L Glucose 140 H POC Glucose 135 H Calcium 7.1 L Phosphorus 1.80 L Magnesium Direct Bilirubin AST Alkaline Phosphatase C-Reactive Protein Serum Total Protein Total Protein Albumin Prealbumin Kzlnt-2-Xnmhjodyw Kojdp-6-Ogeckqjmr Gamma Globulins PEP Interpretation Triglycerides Urine pH Urine Creatinine Urine Total Protein Vancomycin Trough Digoxin Crossmatch 10/18/19 10/18/19 10/18/19 05:45 11:19 18:26 WBC RBC Hgb Hct MCHC RDW Plt Count Lymph % (Auto) [place] % (Auto) Lymph # [place] # Seg Neutrophils % Seg Neuts % (Manual) Lymphocytes % (Manual) Seg Neutrophils # Seg Neutrophils # Man Lymphocytes # (Manual) Monocytes # (Manual) POC ABG pH ABG pH POC ABG pCO2 POC ABG pO2 ABG pO2 ABG HCO3 ABG Base Excess ABG Hemoglobin Oxyhemoglobin Sodium Potassium Chloride Carbon Dioxide BUN Creatinine Glucose POC Glucose 145 H 152 H 125 H Calcium Phosphorus Magnesium Direct Bilirubin AST Alkaline Phosphatase C-Reactive Protein Serum Total Protein Total Protein Albumin Prealbumin Azefn-1-Ofapenlxi Mlpod-2-Bkxqfmsmb Gamma Globulins PEP Interpretation Triglycerides Urine pH Urine Creatinine Urine Total Protein Vancomycin Trough Digoxin Crossmatch 10/18/19 10/19/19 10/19/19 23:27 04:21 04:21 WBC RBC Hgb Hct MCHC RDW Plt Count Lymph % (Auto) [place] % (Auto) Lymph # [place] # Seg Neutrophils % Seg Neuts % (Manual) Lymphocytes % (Manual) Seg Neutrophils # Seg Neutrophils # Man Lymphocytes # (Manual) Monocytes # (Manual) POC ABG pH ABG pH POC ABG pCO2 POC ABG pO2 ABG pO2 ABG HCO3 ABG Base Excess ABG Hemoglobin Oxyhemoglobin Sodium Potassium Chloride 108.4 H Carbon Dioxide BUN 22 H Creatinine 0.5 L Glucose 123 H POC Glucose 127 H Calcium 7.4 L Phosphorus 1.80 L Magnesium Direct Bilirubin AST Alkaline Phosphatase C-Reactive Protein Serum Total Protein Total Protein Albumin Prealbumin Hyzxu-5-Mipyhckub Wzhdp-2-Vmboamwpb Gamma Globulins PEP Interpretation Triglycerides Urine pH Urine Creatinine Urine Total Protein Vancomycin Trough Digoxin 0.7 L Crossmatch 10/19/19 10/19/19 10/19/19 05:00 05:35 11:26 WBC RBC Hgb Hct MCHC RDW Plt Count Lymph % (Auto) [place] % (Auto) Lymph # [place] # Seg Neutrophils % Seg Neuts % (Manual) Lymphocytes % (Manual) Seg Neutrophils # Seg Neutrophils # Man Lymphocytes # (Manual) Monocytes # (Manual) POC ABG pH ABG pH 7.456 H POC ABG pCO2 POC ABG pO2 ABG pO2 78.8 L ABG HCO3 ABG Base Excess ABG Hemoglobin 5.6 L Oxyhemoglobin Sodium Potassium Chloride Carbon Dioxide BUN Creatinine Glucose POC Glucose 124 H 111 H Calcium Phosphorus Magnesium Direct Bilirubin AST Alkaline Phosphatase C-Reactive Protein Serum Total Protein Total Protein Albumin Prealbumin Krgdl-6-Tjcpprzml Kdbst-1-Rrelmgnsq Gamma Globulins PEP Interpretation Triglycerides Urine pH Urine Creatinine Urine Total Protein Vancomycin Trough Digoxin Crossmatch 10/19/19 10/20/19 10/20/19 23:23 04:50 05:17 WBC RBC Hgb Hct MCHC RDW Plt Count Lymph % (Auto) [place] % (Auto) Lymph # [place] # Seg Neutrophils % Seg Neuts % (Manual) Lymphocytes % (Manual) Seg Neutrophils # Seg Neutrophils # Man Lymphocytes # (Manual) Monocytes # (Manual) POC ABG pH ABG pH POC ABG pCO2 POC ABG pO2 ABG pO2 ABG HCO3 ABG Base Excess ABG Hemoglobin Oxyhemoglobin Sodium Potassium Chloride 108.1 H Carbon Dioxide BUN Creatinine 0.4 L Glucose 134 H POC Glucose 129 H 123 H Calcium 7.1 L Phosphorus Magnesium Direct Bilirubin AST Alkaline Phosphatase C-Reactive Protein Serum Total Protein Total Protein Albumin Prealbumin Fhsxc-3-Djposbrhh Eocqp-0-Xovmqrzbc Gamma Globulins PEP Interpretation Triglycerides Urine pH Urine Creatinine Urine Total Protein Vancomycin Trough Digoxin Crossmatch 10/20/19 10/20/19 10/21/19 11:40 19:06 05:08 WBC RBC Hgb Hct MCHC RDW Plt Count Lymph % (Auto) [place] % (Auto) Lymph # [place] # Seg Neutrophils % Seg Neuts % (Manual) Lymphocytes % (Manual) Seg Neutrophils # Seg Neutrophils # Man Lymphocytes # (Manual) Monocytes # (Manual) POC ABG pH ABG pH POC ABG pCO2 POC ABG pO2 ABG pO2 ABG HCO3 ABG Base Excess ABG Hemoglobin Oxyhemoglobin Sodium Potassium Chloride Carbon Dioxide BUN Creatinine Glucose POC Glucose 139 H 117 H 131 H Calcium Phosphorus Magnesium Direct Bilirubin AST Alkaline Phosphatase C-Reactive Protein Serum Total Protein Total Protein Albumin Prealbumin Tvzod-3-Ydsbhkeno Yxfzd-1-Mzscmqhdd Gamma Globulins PEP Interpretation Triglycerides Urine pH Urine Creatinine Urine Total Protein Vancomycin Trough Digoxin Crossmatch 10/21/19 10/21/19 10/21/19 05:30 12:04 17:31 WBC RBC Hgb Hct MCHC RDW Plt Count Lymph % (Auto) [place] % (Auto) Lymph # [place] # Seg Neutrophils % Seg Neuts % (Manual) Lymphocytes % (Manual) Seg Neutrophils # Seg Neutrophils # Man Lymphocytes # (Manual) Monocytes # (Manual) POC ABG pH ABG pH POC ABG pCO2 POC ABG pO2 ABG pO2 ABG HCO3 ABG Base Excess ABG Hemoglobin Oxyhemoglobin Sodium Potassium Chloride 107.8 H Carbon Dioxide BUN Creatinine 0.5 L Glucose 119 H POC Glucose 119 H 110 H Calcium 7.6 L Phosphorus Magnesium Direct Bilirubin AST Alkaline Phosphatase C-Reactive Protein Serum Total Protein Total Protein Albumin Prealbumin Ctxpe-6-Fwgngxnla Pnkcd-4-Mryyxbzso Gamma Globulins PEP Interpretation Triglycerides Urine pH Urine Creatinine Urine Total Protein Vancomycin Trough Digoxin Crossmatch 10/22/19 10/22/19 10/22/19 05:14 05:37 12:07 WBC RBC Hgb Hct MCHC RDW Plt Count Lymph % (Auto) [place] % (Auto) Lymph # [place] # Seg Neutrophils % Seg Neuts % (Manual) Lymphocytes % (Manual) Seg Neutrophils # Seg Neutrophils # Man Lymphocytes # (Manual) Monocytes # (Manual) POC ABG pH ABG pH POC ABG pCO2 POC ABG pO2 ABG pO2 ABG HCO3 ABG Base Excess ABG Hemoglobin Oxyhemoglobin Sodium Potassium Chloride Carbon Dioxide BUN Creatinine 0.5 L Glucose 116 H POC Glucose 110 H 126 H Calcium 7.7 L Phosphorus Magnesium Direct Bilirubin AST Alkaline Phosphatase C-Reactive Protein Serum Total Protein Total Protein Albumin Prealbumin Usahr-2-Hdaweoeey Hvdyl-0-Decpnqrud Gamma Globulins PEP Interpretation Triglycerides Urine pH Urine Creatinine Urine Total Protein Vancomycin Trough Digoxin Crossmatch 10/22/19 10/22/19 10/23/19 18:36 23:19 04:39 WBC RBC Hgb Hct MCHC RDW Plt Count Lymph % (Auto) [place] % (Auto) Lymph # [place] # Seg Neutrophils % Seg Neuts % (Manual) Lymphocytes % (Manual) Seg Neutrophils # Seg Neutrophils # Man Lymphocytes # (Manual) Monocytes # (Manual) POC ABG pH ABG pH POC ABG pCO2 POC ABG pO2 ABG pO2 ABG HCO3 ABG Base Excess ABG Hemoglobin Oxyhemoglobin Sodium Potassium Chloride Carbon Dioxide BUN Creatinine Glucose POC Glucose 120 H 127 H 112 H Calcium Phosphorus Magnesium Direct Bilirubin AST Alkaline Phosphatase C-Reactive Protein Serum Total Protein Total Protein Albumin Prealbumin Eyeld-6-Gndbaagfk Euuzj-8-Lzzcbclzb Gamma Globulins PEP Interpretation Triglycerides Urine pH Urine Creatinine Urine Total Protein Vancomycin Trough Digoxin Crossmatch 10/23/19 10/23/19 10/23/19 04:47 05:15 10:44 WBC 18.3 H RBC 2.33 L Hgb 7.0 L Hct 21.5 L MCHC RDW 16.2 H Plt Count Lymph % (Auto) 4.9 L [place] % (Auto) 8.1 H Lymph # 0.9 L [place] # 1.5 H Seg Neutrophils % 86.7 H Seg Neuts % (Manual) Lymphocytes % (Manual) Seg Neutrophils # 15.9 H Seg Neutrophils # Man Lymphocytes # (Manual) Monocytes # (Manual) POC ABG pH ABG pH POC ABG pCO2 POC ABG pO2 ABG pO2 68.9 L ABG HCO3 28.7 H ABG Base Excess 3.4 H ABG Hemoglobin 6.6 L Oxyhemoglobin 94.1 L Sodium Potassium Chloride Carbon Dioxide BUN Creatinine 0.5 L Glucose 165 H POC Glucose Calcium 7.4 L Phosphorus Magnesium Direct Bilirubin AST Alkaline Phosphatase C-Reactive Protein Serum Total Protein Total Protein Albumin Prealbumin Btnuw-0-Vlgskapds Ffwin-5-Cvcviswky Gamma Globulins PEP Interpretation Triglycerides Urine pH Urine Creatinine Urine Total Protein Vancomycin Trough Digoxin Crossmatch 10/23/19 10/23/19 10/23/19 10:44 11:46 11:50 WBC RBC Hgb Hct MCHC RDW Plt Count Lymph % (Auto) [place] % (Auto) Lymph # [place] # Seg Neutrophils % Seg Neuts % (Manual) Lymphocytes % (Manual) Seg Neutrophils # Seg Neutrophils # Man Lymphocytes # (Manual) Monocytes # (Manual) POC ABG pH ABG pH POC ABG pCO2 POC ABG pO2 ABG pO2 ABG HCO3 ABG Base Excess ABG Hemoglobin Oxyhemoglobin Sodium Potassium Chloride Carbon Dioxide BUN Creatinine Glucose POC Glucose 138 H Calcium Phosphorus Magnesium Direct Bilirubin 0.7 H AST Alkaline Phosphatase C-Reactive Protein Serum Total Protein Total Protein 4.5 L Albumin 1.2 L Prealbumin Imeom-2-Szzbmcasz Riqid-9-Lcqglqxyl Gamma Globulins PEP Interpretation Triglycerides Urine pH Urine Creatinine Urine Total Protein Vancomycin Trough Digoxin Crossmatch See Detail 12/09/0110/24/19 10/24/19 17:53 00:07 05:05 WBC RBC Hgb Hct MCHC RDW Plt Count Lymph % (Auto) [place] % (Auto) Lymph # [place] # Seg Neutrophils % Seg Neuts % (Manual) Lymphocytes % (Manual) Seg Neutrophils # Seg Neutrophils # Man Lymphocytes # (Manual) Monocytes # (Manual) POC ABG pH ABG pH POC ABG pCO2 POC ABG pO2 ABG pO2 ABG HCO3 ABG Base Excess ABG Hemoglobin Oxyhemoglobin Sodium Potassium 3.5 L Chloride Carbon Dioxide BUN Creatinine 0.5 L Glucose 116 H POC Glucose 137 H 110 H Calcium 8.0 L Phosphorus Magnesium Direct Bilirubin AST Alkaline Phosphatase C-Reactive Protein Serum Total Protein Total Protein Albumin Prealbumin Tnuxn-2-Xkfacompg Bazjm-5-Nuhqksiqe Gamma Globulins PEP Interpretation Triglycerides Urine pH Urine Creatinine Urine Total Protein Vancomycin Trough Digoxin Crossmatch 10/24/19 10/24/19 10/24/19 05:05 11:56 13:00 WBC 13.0 H RBC 2.73 L Hgb 8.0 L Hct 24.2 L MCHC RDW 17.9 H Plt Count Lymph % (Auto) 7.0 L [place] % (Auto) 9.5 H Lymph # 0.9 L [place] # 1.2 H Seg Neutrophils % 82.7 H Seg Neuts % (Manual) Lymphocytes % (Manual) Seg Neutrophils # 10.7 H Seg Neutrophils # Man Lymphocytes # (Manual) Monocytes # (Manual) POC ABG pH ABG pH POC ABG pCO2 POC ABG pO2 ABG pO2 ABG HCO3 ABG Base Excess ABG Hemoglobin Oxyhemoglobin Sodium Potassium Chloride Carbon Dioxide BUN Creatinine Glucose POC Glucose 159 H Calcium Phosphorus Magnesium Direct Bilirubin AST Alkaline Phosphatase C-Reactive Protein Serum Total Protein Total Protein Albumin Prealbumin Yvfpi-2-Ypzvotlam Wnsrz-2-Ccmxakupe Gamma Globulins PEP Interpretation Triglycerides 216 H Urine pH Urine Creatinine Urine Total Protein Vancomycin Trough Digoxin Crossmatch 10/24/19 10/24/19 10/25/19 17:42 23:45 04:19 WBC RBC Hgb Hct MCHC RDW Plt Count Lymph % (Auto) [place] % (Auto) Lymph # [place] # Seg Neutrophils % Seg Neuts % (Manual) Lymphocytes % (Manual) Seg Neutrophils # Seg Neutrophils # Man Lymphocytes # (Manual) Monocytes # (Manual) POC ABG pH ABG pH POC ABG pCO2 POC ABG pO2 ABG pO2 ABG HCO3 ABG Base Excess ABG Hemoglobin Oxyhemoglobin Sodium 147 H Potassium Chloride Carbon Dioxide 33 H BUN Creatinine 0.5 L Glucose 111 H POC Glucose 120 H 116 H Calcium Phosphorus Magnesium Direct Bilirubin AST Alkaline Phosphatase C-Reactive Protein Serum Total Protein Total Protein 5.7 L D Albumin 2.5 L Prealbumin Wbxlk-6-Lywldtumx Yvrbc-6-Dhfyfpxsf Gamma Globulins PEP Interpretation Triglycerides 230 H Urine pH Urine Creatinine Urine Total Protein Vancomycin Trough Digoxin Crossmatch 10/25/19 10/25/19 10/25/19 04:19 05:31 12:20 WBC RBC 2.69 L Hgb 8.1 L Hct 23.9 L MCHC RDW 17.3 H Plt Count Lymph % (Auto) [place] % (Auto) Lymph # [place] # Seg Neutrophils % Seg Neuts % (Manual) Lymphocytes % (Manual) Seg Neutrophils # Seg Neutrophils # Man Lymphocytes # (Manual) Monocytes # (Manual) POC ABG pH ABG pH POC ABG pCO2 POC ABG pO2 ABG pO2 ABG HCO3 ABG Base Excess ABG Hemoglobin Oxyhemoglobin Sodium Potassium Chloride Carbon Dioxide BUN Creatinine Glucose POC Glucose 126 H 114 H Calcium Phosphorus Magnesium Direct Bilirubin AST Alkaline Phosphatase C-Reactive Protein Serum Total Protein Total Protein Albumin Prealbumin Benlu-1-Jaqjcocng Ovzje-7-Eqpftxaxb Gamma Globulins PEP Interpretation Triglycerides Urine pH Urine Creatinine Urine Total Protein Vancomycin Trough Digoxin Crossmatch 10/25/19 10/25/19 10/26/19 18:30 23:09 06:15 WBC RBC Hgb Hct MCHC RDW Plt Count Lymph % (Auto) [place] % (Auto) Lymph # [place] # Seg Neutrophils % Seg Neuts % (Manual) Lymphocytes % (Manual) Seg Neutrophils # Seg Neutrophils # Man Lymphocytes # (Manual) Monocytes # (Manual) POC ABG pH ABG pH POC ABG pCO2 POC ABG pO2 ABG pO2 ABG HCO3 ABG Base Excess ABG Hemoglobin Oxyhemoglobin Sodium Potassium 3.5 L Chloride Carbon Dioxide BUN Creatinine 0.5 L Glucose 112 H POC Glucose 121 H 107 H Calcium 8.3 L Phosphorus Magnesium Direct Bilirubin AST Alkaline Phosphatase 148 H C-Reactive Protein Serum Total Protein Total Protein 5.9 L Albumin 2.4 L Prealbumin Wbyvs-6-Ovolnjjxi Gahqb-5-Bytpslkxp Gamma Globulins PEP Interpretation Triglycerides Urine pH Urine Creatinine Urine Total Protein Vancomycin Trough Digoxin Crossmatch 10/26/19 10/26/19 10/26/19 06:15 12:21 17:35 WBC RBC Hgb Hct MCHC RDW Plt Count Lymph % (Auto) [place] % (Auto) Lymph # [place] # Seg Neutrophils % Seg Neuts % (Manual) Lymphocytes % (Manual) Seg Neutrophils # Seg Neutrophils # Man Lymphocytes # (Manual) Monocytes # (Manual) POC ABG pH ABG pH POC ABG pCO2 POC ABG pO2 ABG pO2 ABG HCO3 ABG Base Excess ABG Hemoglobin Oxyhemoglobin Sodium Potassium Chloride Carbon Dioxide BUN Creatinine Glucose POC Glucose 134 H 141 H Calcium Phosphorus Magnesium Direct Bilirubin AST Alkaline Phosphatase C-Reactive Protein Serum Total Protein Total Protein Albumin Prealbumin Besud-3-Cmbwxyvsb Qfzrz-0-Sbxakwiwh Gamma Globulins PEP Interpretation Triglycerides 185 H Urine pH Urine Creatinine Urine Total Protein Vancomycin Trough Digoxin Crossmatch 10/26/19 10/27/19 10/27/19 Unknown 04:30 11:33 WBC RBC Hgb Hct MCHC RDW Plt Count Lymph % (Auto) [place] % (Auto) Lymph # [place] # Seg Neutrophils % Seg Neuts % (Manual) Lymphocytes % (Manual) Seg Neutrophils # Seg Neutrophils # Man Lymphocytes # (Manual) Monocytes # (Manual) POC ABG pH ABG pH POC ABG pCO2 POC ABG pO2 ABG pO2 ABG HCO3 ABG Base Excess ABG Hemoglobin Oxyhemoglobin Sodium Potassium 3.2 L Chloride Carbon Dioxide BUN 23 H Creatinine 0.6 L Glucose 130 H POC Glucose 131 H Calcium 7.9 L Phosphorus Magnesium Direct Bilirubin AST Alkaline Phosphatase C-Reactive Protein Serum Total Protein Total Protein Albumin Prealbumin Cxrlp-3-Sbsqjohiu Uonne-9-Byeullroy Gamma Globulins PEP Interpretation Triglycerides Urine pH 9.0 H Urine Creatinine Urine Total Protein Vancomycin Trough Digoxin Crossmatch 10/27/19 10/28/19 10/28/19 17:45 05:25 05:49 WBC RBC 2.85 L Hgb 8.3 L Hct 26.8 L MCHC 31 L RDW 17.4 H Plt Count Lymph % (Auto) 8.9 L [place] % (Auto) 14.3 H Lymph # 0.8 L [place] # 1.3 H Seg Neutrophils % 76.5 H Seg Neuts % (Manual) Lymphocytes % (Manual) Seg Neutrophils # Seg Neutrophils # Man Lymphocytes # (Manual) Monocytes # (Manual) POC ABG pH ABG pH POC ABG pCO2 POC ABG pO2 ABG pO2 ABG HCO3 ABG Base Excess ABG Hemoglobin Oxyhemoglobin Sodium Potassium Chloride Carbon Dioxide BUN Creatinine Glucose POC Glucose 121 H 120 H Calcium Phosphorus Magnesium Direct Bilirubin AST Alkaline Phosphatase C-Reactive Protein Serum Total Protein Total Protein Albumin Prealbumin Pswap-0-Ptvcgmctv Oxunl-4-Gwxxrdwxp Gamma Globulins PEP Interpretation Triglycerides Urine pH Urine Creatinine Urine Total Protein Vancomycin Trough Digoxin Crossmatch 10/28/19 10/28/19 10/28/19 07:19 12:07 18:21 WBC RBC Hgb Hct MCHC RDW Plt Count Lymph % (Auto) [place] % (Auto) Lymph # [place] # Seg Neutrophils % Seg Neuts % (Manual) Lymphocytes % (Manual) Seg Neutrophils # Seg Neutrophils # Man Lymphocytes # (Manual) Monocytes # (Manual) POC ABG pH ABG pH POC ABG pCO2 POC ABG pO2 ABG pO2 ABG HCO3 ABG Base Excess ABG Hemoglobin Oxyhemoglobin Sodium Potassium Chloride Carbon Dioxide BUN 23 H Creatinine 0.5 L Glucose 129 H POC Glucose 127 H 130 H Calcium 8.0 L Phosphorus Magnesium Direct Bilirubin AST Alkaline Phosphatase C-Reactive Protein Serum Total Protein Total Protein Albumin Prealbumin Zufzw-1-Qrbwsdrhw Lwbjf-8-Hyormgzxz Gamma Globulins PEP Interpretation Triglycerides Urine pH Urine Creatinine Urine Total Protein Vancomycin Trough Digoxin Crossmatch 10/28/19 10/29/19 10/29/19 23:30 05:30 05:30 WBC 11.2 H RBC 3.36 L Hgb 9.7 L Hct 29.4 L MCHC RDW 16.7 H Plt Count Lymph % (Auto) [place] % (Auto) 16.0 H Lymph # [place] # 1.8 H Seg Neutrophils % 70.2 H Seg Neuts % (Manual) Lymphocytes % (Manual) Seg Neutrophils # 7.9 H Seg Neutrophils # Man Lymphocytes # (Manual) Monocytes # (Manual) POC ABG pH ABG pH POC ABG pCO2 POC ABG pO2 ABG pO2 ABG HCO3 ABG Base Excess ABG Hemoglobin Oxyhemoglobin Sodium Potassium Chloride Carbon Dioxide BUN 23 H Creatinine 0.5 L Glucose POC Glucose 130 H Calcium 8.3 L Phosphorus Magnesium Direct Bilirubin AST Alkaline Phosphatase C-Reactive Protein Serum Total Protein Total Protein Albumin Prealbumin Nemzb-7-Ugypxjngr Kmeii-9-Eycocsitv Gamma Globulins PEP Interpretation Triglycerides Urine pH Urine Creatinine Urine Total Protein Vancomycin Trough Digoxin Crossmatch 1210/29/19 10/29/19 05:52 13:10 18:02 WBC RBC Hgb Hct MCHC RDW Plt Count Lymph % (Auto) [place] % (Auto) Lymph # [place] # Seg Neutrophils % Seg Neuts % (Manual) Lymphocytes % (Manual) Seg Neutrophils # Seg Neutrophils # Man Lymphocytes # (Manual) Monocytes # (Manual) POC ABG pH ABG pH POC ABG pCO2 POC ABG pO2 ABG pO2 ABG HCO3 ABG Base Excess ABG Hemoglobin Oxyhemoglobin Sodium Potassium Chloride Carbon Dioxide BUN Creatinine Glucose POC Glucose 111 H 140 H 140 H Calcium Phosphorus Magnesium Direct Bilirubin AST Alkaline Phosphatase C-Reactive Protein Serum Total Protein Total Protein Albumin Prealbumin Vrota-3-Ilisescbu Yhcyp-6-Pvdmyncar Gamma Globulins PEP Interpretation Triglycerides Urine pH Urine Creatinine Urine Total Protein Vancomycin Trough Digoxin Crossmatch 10/29/19 10/30/19 10/30/19 23:58 01:05 05:15 WBC RBC Hgb Hct MCHC RDW Plt Count Lymph % (Auto) [place] % (Auto) Lymph # [place] # Seg Neutrophils % Seg Neuts % (Manual) Lymphocytes % (Manual) Seg Neutrophils # Seg Neutrophils # Man Lymphocytes # (Manual) Monocytes # (Manual) POC ABG pH ABG pH POC ABG pCO2 62.0 H POC ABG pO2 168 H ABG pO2 ABG HCO3 ABG Base Excess ABG Hemoglobin Oxyhemoglobin Sodium 147 H Potassium Chloride 107.8 H Carbon Dioxide BUN 26 H Creatinine 0.5 L Glucose 139 H POC Glucose 161 H Calcium Phosphorus Magnesium 2.40 H Direct Bilirubin AST Alkaline Phosphatase C-Reactive Protein Serum Total Protein Total Protein Albumin Prealbumin Oidrq-1-Txdhwuige Byqmk-0-Mkrdhhgyj Gamma Globulins PEP Interpretation Triglycerides Urine pH Urine Creatinine Urine Total Protein Vancomycin Trough Digoxin Crossmatch 10/30/19 10/30/19 10/30/19 05:15 06:32 09:44 WBC 13.8 H RBC 3.59 L Hgb 10.1 L Hct 32.4 L MCHC 31 L RDW 17.4 H Plt Count Lymph % (Auto) 11.2 L [place] % (Auto) 13.6 H Lymph # [place] # 1.9 H Seg Neutrophils % 75.1 H Seg Neuts % (Manual) Lymphocytes % (Manual) Seg Neutrophils # 10.4 H Seg Neutrophils # Man Lymphocytes # (Manual) Monocytes # (Manual) POC ABG pH ABG pH POC ABG pCO2 51.7 H POC ABG pO2 111 H ABG pO2 ABG HCO3 ABG Base Excess ABG Hemoglobin Oxyhemoglobin Sodium Potassium Chloride Carbon Dioxide BUN Creatinine Glucose POC Glucose 141 H Calcium Phosphorus Magnesium Direct Bilirubin AST Alkaline Phosphatase C-Reactive Protein Serum Total Protein Total Protein Albumin Prealbumin Gesyx-2-Awgjvdoxm Fwazt-6-Eynvqmvra Gamma Globulins PEP Interpretation Triglycerides Urine pH Urine Creatinine Urine Total Protein Vancomycin Trough Digoxin Crossmatch 10/30/19 10/31/19 10/31/19 18:10 04:18 04:18 WBC 11.7 H RBC 3.11 L Hgb 9.0 L Hct 27.9 L MCHC RDW 17.1 H Plt Count Lymph % (Auto) [place] % (Auto) Lymph # [place] # Seg Neutrophils % Seg Neuts % (Manual) Lymphocytes % (Manual) Seg Neutrophils # Seg Neutrophils # Man Lymphocytes # (Manual) Monocytes # (Manual) POC ABG pH ABG pH POC ABG pCO2 POC ABG pO2 ABG pO2 ABG HCO3 ABG Base Excess ABG Hemoglobin Oxyhemoglobin Sodium 148 H Potassium Chloride 108.7 H Carbon Dioxide BUN 37 H Creatinine 0.7 L Glucose 102 H POC Glucose 131 H Calcium Phosphorus Magnesium Direct Bilirubin AST Alkaline Phosphatase C-Reactive Protein Serum Total Protein Total Protein Albumin Prealbumin Hxyhg-0-Thxsldzpq Kpkxo-1-Sktpvttqd Gamma Globulins PEP Interpretation Triglycerides Urine pH Urine Creatinine Urine Total Protein Vancomycin Trough Digoxin Crossmatch 10/31/19 10/31/19 10/31/19 11:32 12:55 18:10 WBC RBC Hgb Hct MCHC RDW Plt Count Lymph % (Auto) [place] % (Auto) Lymph # [place] # Seg Neutrophils % Seg Neuts % (Manual) Lymphocytes % (Manual) Seg Neutrophils # Seg Neutrophils # Man Lymphocytes # (Manual) Monocytes # (Manual) POC ABG pH ABG pH POC ABG pCO2 57.9 H POC ABG pO2 135 H ABG pO2 ABG HCO3 ABG Base Excess ABG Hemoglobin Oxyhemoglobin Sodium Potassium Chloride Carbon Dioxide BUN Creatinine Glucose POC Glucose 120 H Calcium Phosphorus Magnesium Direct Bilirubin AST Alkaline Phosphatase C-Reactive Protein Serum Total Protein Total Protein Albumin Prealbumin Tlonm-6-Vmtttykuk Rbnpr-5-Zbeddlhdw Gamma Globulins PEP Interpretation Triglycerides Urine pH Urine Creatinine Urine Total Protein Vancomycin Trough 41.7 H Digoxin Crossmatch 10/31/19 11/01/19 11/01/19 23:08 05:30 05:30 WBC 14.6 H RBC 3.13 L Hgb 8.9 L Hct 27.7 L MCHC RDW 17.0 H Plt Count Lymph % (Auto) [place] % (Auto) Lymph # [place] # Seg Neutrophils % Seg Neuts % (Manual) Lymphocytes % (Manual) Seg Neutrophils # Seg Neutrophils # Man Lymphocytes # (Manual) Monocytes # (Manual) POC ABG pH ABG pH POC ABG pCO2 POC ABG pO2 ABG pO2 ABG HCO3 ABG Base Excess ABG Hemoglobin Oxyhemoglobin Sodium 149 H Potassium Chloride 109.0 H Carbon Dioxide BUN 26 H Creatinine 0.7 L Glucose 129 H POC Glucose 109 H Calcium Phosphorus Magnesium Direct Bilirubin AST Alkaline Phosphatase C-Reactive Protein Serum Total Protein Total Protein Albumin Prealbumin Egcnh-5-Jgljxtohf Tmrvm-7-Tzpytdnji Gamma Globulins PEP Interpretation Triglycerides Urine pH Urine Creatinine Urine Total Protein Vancomycin Trough Digoxin Crossmatch 11/01/19 11/01/19 11/01/19 06:09 06:10 11:52 WBC RBC Hgb Hct MCHC RDW Plt Count Lymph % (Auto) [place] % (Auto) Lymph # [place] # Seg Neutrophils % Seg Neuts % (Manual) Lymphocytes % (Manual) Seg Neutrophils # Seg Neutrophils # Man Lymphocytes # (Manual) Monocytes # (Manual) POC ABG pH ABG pH POC ABG pCO2 51.3 H POC ABG pO2 71 L ABG pO2 ABG HCO3 ABG Base Excess ABG Hemoglobin Oxyhemoglobin Sodium Potassium Chloride Carbon Dioxide BUN Creatinine Glucose POC Glucose 113 H 106 H Calcium Phosphorus Magnesium Direct Bilirubin AST Alkaline Phosphatase C-Reactive Protein Serum Total Protein Total Protein Albumin Prealbumin Tgvrg-8-Wvgqvfmpj Dsenm-4-Qzizvyucu Gamma Globulins PEP Interpretation Triglycerides Urine pH Urine Creatinine Urine Total Protein Vancomycin Trough Digoxin Crossmatch 11/01/19 11/02/19 11/02/19 18:18 03:40 03:40 WBC RBC 2.36 L Hgb 7.2 L Hct 20.8 L D MCHC 35 H RDW 16.8 H Plt Count Lymph % (Auto) [place] % (Auto) Lymph # [place] # Seg Neutrophils % Seg Neuts % (Manual) Lymphocytes % (Manual) Seg Neutrophils # Seg Neutrophils # Man Lymphocytes # (Manual) Monocytes # (Manual) POC ABG pH ABG pH POC ABG pCO2 POC ABG pO2 ABG pO2 ABG HCO3 ABG Base Excess ABG Hemoglobin Oxyhemoglobin Sodium 157 H D Potassium 3.0 L D Chloride 117.2 H Carbon Dioxide BUN 23 H Creatinine 0.6 L Glucose 101 H POC Glucose 120 H Calcium 6.4 L D Phosphorus Magnesium Direct Bilirubin AST Alkaline Phosphatase C-Reactive Protein Serum Total Protein Total Protein Albumin Prealbumin Wmnxw-9-Tlsjgqnoh Sdnir-4-Mixnbzeaz Gamma Globulins PEP Interpretation Triglycerides Urine pH Urine Creatinine Urine Total Protein Vancomycin Trough Digoxin Crossmatch 11/02/19 11/02/19 11/02/19 04:48 05:30 12:43 WBC RBC Hgb Hct MCHC RDW Plt Count Lymph % (Auto) [place] % (Auto) Lymph # [place] # Seg Neutrophils % Seg Neuts % (Manual) Lymphocytes % (Manual) Seg Neutrophils # Seg Neutrophils # Man Lymphocytes # (Manual) Monocytes # (Manual) POC ABG pH ABG pH POC ABG pCO2 50.1 H POC ABG pO2 74 L ABG pO2 ABG HCO3 ABG Base Excess ABG Hemoglobin Oxyhemoglobin Sodium 149 H D Potassium Chloride 110.0 H Carbon Dioxide BUN 23 H Creatinine 0.6 L Glucose POC Glucose 109 H Calcium 8.1 L D Phosphorus Magnesium 2.40 H Direct Bilirubin AST Alkaline Phosphatase C-Reactive Protein Serum Total Protein Total Protein Albumin Prealbumin Peupl-3-Lczvugjxx Vxjtd-4-Kdfwckexf Gamma Globulins PEP Interpretation Triglycerides Urine pH Urine Creatinine Urine Total Protein Vancomycin Trough Digoxin Crossmatch 11/03/19 11/03/19 11/03/19 03:42 03:42 04:13 WBC RBC 2.93 L Hgb 8.5 L Hct 25.8 L MCHC RDW 16.9 H Plt Count Lymph % (Auto) [place] % (Auto) Lymph # [place] # Seg Neutrophils % Seg Neuts % (Manual) Lymphocytes % (Manual) Seg Neutrophils # Seg Neutrophils # Man Lymphocytes # (Manual) Monocytes # (Manual) POC ABG pH 7.540 H ABG pH POC ABG pCO2 POC ABG pO2 51 L ABG pO2 ABG HCO3 ABG Base Excess ABG Hemoglobin Oxyhemoglobin Sodium 147 H Potassium 3.5 L D Chloride 108.6 H Carbon Dioxide BUN Creatinine 0.6 L Glucose 109 H POC Glucose Calcium 8.3 L Phosphorus Magnesium Direct Bilirubin AST Alkaline Phosphatase C-Reactive Protein Serum Total Protein Total Protein Albumin Prealbumin Yhjgo-1-Eqkgegzvw Wgmgk-9-Caqqozprj Gamma Globulins PEP Interpretation Triglycerides Urine pH Urine Creatinine Urine Total Protein Vancomycin Trough Digoxin Crossmatch 11/03/19 11/03/19 11/03/19 04:28 12:04 23:02 WBC RBC Hgb Hct MCHC RDW Plt Count Lymph % (Auto) [place] % (Auto) Lymph # [place] # Seg Neutrophils % Seg Neuts % (Manual) Lymphocytes % (Manual) Seg Neutrophils # Seg Neutrophils # Man Lymphocytes # (Manual) Monocytes # (Manual) POC ABG pH ABG pH POC ABG pCO2 45.4 H POC ABG pO2 ABG pO2 ABG HCO3 ABG Base Excess ABG Hemoglobin Oxyhemoglobin Sodium Potassium Chloride Carbon Dioxide BUN Creatinine Glucose POC Glucose 109 H 111 H Calcium Phosphorus Magnesium Direct Bilirubin AST Alkaline Phosphatase C-Reactive Protein Serum Total Protein Total Protein Albumin Prealbumin Sbpmk-0-Grlnccjoa Fdohx-3-Nlpxjjrms Gamma Globulins PEP Interpretation Triglycerides Urine pH Urine Creatinine Urine Total Protein Vancomycin Trough Digoxin Crossmatch 11/04/19 11/04/19 11/04/19 05:00 05:00 05:19 WBC RBC 2.96 L Hgb 8.6 L Hct 25.5 L MCHC RDW 16.7 H Plt Count Lymph % (Auto) [place] % (Auto) Lymph # [place] # Seg Neutrophils % Seg Neuts % (Manual) Lymphocytes % (Manual) Seg Neutrophils # Seg Neutrophils # Man Lymphocytes # (Manual) Monocytes # (Manual) POC ABG pH ABG pH POC ABG pCO2 POC ABG pO2 ABG pO2 ABG HCO3 ABG Base Excess ABG Hemoglobin Oxyhemoglobin Sodium Potassium 3.5 L Chloride Carbon Dioxide BUN Creatinine 0.5 L Glucose 111 H POC Glucose 106 H Calcium 8.1 L Phosphorus Magnesium Direct Bilirubin AST Alkaline Phosphatase C-Reactive Protein Serum Total Protein Total Protein Albumin Prealbumin Ppbxd-5-Jfbthvhwz Satax-2-Aqixlqxbi Gamma Globulins PEP Interpretation Triglycerides Urine pH Urine Creatinine Urine Total Protein Vancomycin Trough Digoxin Crossmatch 11/04/19 11/05/19 11/05/19 12:40 00:28 04:19 WBC 12.4 H RBC 2.98 L Hgb 8.5 L Hct 25.5 L MCHC RDW 16.6 H Plt Count Lymph % (Auto) [place] % (Auto) Lymph # [place] # Seg Neutrophils % Seg Neuts % (Manual) Lymphocytes % (Manual) Seg Neutrophils # Seg Neutrophils # Man Lymphocytes # (Manual) Monocytes # (Manual) POC ABG pH ABG pH POC ABG pCO2 POC ABG pO2 ABG pO2 ABG HCO3 ABG Base Excess ABG Hemoglobin Oxyhemoglobin Sodium Potassium Chloride Carbon Dioxide BUN Creatinine Glucose POC Glucose 109 H 132 H Calcium Phosphorus Magnesium Direct Bilirubin AST Alkaline Phosphatase C-Reactive Protein Serum Total Protein Total Protein Albumin Prealbumin Hlobp-6-Xkfkmlmhk Gvvhs-1-Wxbqvsmov Gamma Globulins PEP Interpretation Triglycerides Urine pH Urine Creatinine Urine Total Protein Vancomycin Trough Digoxin Crossmatch 11/05/19 11/05/19 11/05/19 04:19 05:40 13:14 WBC RBC Hgb Hct MCHC RDW Plt Count Lymph % (Auto) [place] % (Auto) Lymph # [place] # Seg Neutrophils % Seg Neuts % (Manual) Lymphocytes % (Manual) Seg Neutrophils # Seg Neutrophils # Man Lymphocytes # (Manual) Monocytes # (Manual) POC ABG pH ABG pH POC ABG pCO2 POC ABG pO2 ABG pO2 ABG HCO3 ABG Base Excess ABG Hemoglobin Oxyhemoglobin Sodium Potassium 3.4 L Chloride Carbon Dioxide BUN Creatinine 0.4 L Glucose 106 H POC Glucose 136 H 145 H Calcium 8.2 L Phosphorus Magnesium Direct Bilirubin AST Alkaline Phosphatase C-Reactive Protein Serum Total Protein Total Protein Albumin Prealbumin Qvipc-3-Vppadmqyj Kplpc-8-Hrhlhqmyj Gamma Globulins PEP Interpretation Triglycerides Urine pH Urine Creatinine Urine Total Protein Vancomycin Trough Digoxin Crossmatch 11/05/19 11/05/19 11/06/19 18:29 23:42 05:00 WBC 12.2 H RBC 2.89 L Hgb 8.2 L Hct 24.9 L MCHC RDW 16.4 H Plt Count Lymph % (Auto) [place] % (Auto) Lymph # [place] # Seg Neutrophils % Seg Neuts % (Manual) Lymphocytes % (Manual) Seg Neutrophils # Seg Neutrophils # Man Lymphocytes # (Manual) Monocytes # (Manual) POC ABG pH ABG pH POC ABG pCO2 POC ABG pO2 ABG pO2 ABG HCO3 ABG Base Excess ABG Hemoglobin Oxyhemoglobin Sodium Potassium Chloride Carbon Dioxide BUN Creatinine Glucose POC Glucose 138 H 117 H Calcium Phosphorus Magnesium Direct Bilirubin AST Alkaline Phosphatase C-Reactive Protein Serum Total Protein Total Protein Albumin Prealbumin Aghwa-6-Sldqxiwoj Hxoma-7-Nkvemrpxy Gamma Globulins PEP Interpretation Triglycerides Urine pH Urine Creatinine Urine Total Protein Vancomycin Trough Digoxin Crossmatch 11/06/19 11/06/19 11/06/19 05:00 05:22 17:39 WBC RBC Hgb Hct MCHC RDW Plt Count Lymph % (Auto) [place] % (Auto) Lymph # [place] # Seg Neutrophils % Seg Neuts % (Manual) Lymphocytes % (Manual) Seg Neutrophils # Seg Neutrophils # Man Lymphocytes # (Manual) Monocytes # (Manual) POC ABG pH ABG pH POC ABG pCO2 POC ABG pO2 ABG pO2 ABG HCO3 ABG Base Excess ABG Hemoglobin Oxyhemoglobin Sodium Potassium Chloride Carbon Dioxide BUN Creatinine 0.4 L Glucose 114 H POC Glucose 121 H 110 H Calcium 8.2 L Phosphorus Magnesium Direct Bilirubin AST Alkaline Phosphatase C-Reactive Protein Serum Total Protein Total Protein Albumin Prealbumin Aitly-6-Jwgkmpyex Wries-3-Ylcktaqgf Gamma Globulins PEP Interpretation Triglycerides Urine pH Urine Creatinine Urine Total Protein Vancomycin Trough Digoxin Crossmatch 11/06/19 11/07/19 11/07/19 23:29 04:06 04:06 WBC 13.0 H RBC 2.80 L Hgb 7.9 L Hct 24.0 L MCHC RDW 16.5 H Plt Count Lymph % (Auto) 7.0 L [place] % (Auto) Lymph # 0.9 L [place] # Seg Neutrophils % 86.3 H Seg Neuts % (Manual) Lymphocytes % (Manual) Seg Neutrophils # 11.2 H Seg Neutrophils # Man Lymphocytes # (Manual) Monocytes # (Manual) POC ABG pH ABG pH POC ABG pCO2 POC ABG pO2 ABG pO2 ABG HCO3 ABG Base Excess ABG Hemoglobin Oxyhemoglobin Sodium Potassium Chloride Carbon Dioxide BUN Creatinine 0.4 L Glucose 110 H POC Glucose 113 H Calcium 8.2 L Phosphorus Magnesium Direct Bilirubin AST Alkaline Phosphatase C-Reactive Protein Serum Total Protein Total Protein Albumin Prealbumin Uzvlx-7-Etqfriajf Edrmr-1-Hxwdsqtun Gamma Globulins PEP Interpretation Triglycerides Urine pH Urine Creatinine Urine Total Protein Vancomycin Trough Digoxin Crossmatch 11/07/19 11/07/19 11/07/19 05:43 12:47 18:19 WBC RBC Hgb Hct MCHC RDW Plt Count Lymph % (Auto) [place] % (Auto) Lymph # [place] # Seg Neutrophils % Seg Neuts % (Manual) Lymphocytes % (Manual) Seg Neutrophils # Seg Neutrophils # Man Lymphocytes # (Manual) Monocytes # (Manual) POC ABG pH ABG pH POC ABG pCO2 POC ABG pO2 ABG pO2 ABG HCO3 ABG Base Excess ABG Hemoglobin Oxyhemoglobin Sodium Potassium Chloride Carbon Dioxide BUN Creatinine Glucose POC Glucose 114 H 120 H 112 H Calcium Phosphorus Magnesium Direct Bilirubin AST Alkaline Phosphatase C-Reactive Protein Serum Total Protein Total Protein Albumin Prealbumin Adciq-9-Wqmzuijyn Fcfdm-7-Romoegsnw Gamma Globulins PEP Interpretation Triglycerides Urine pH Urine Creatinine Urine Total Protein Vancomycin Trough Digoxin Crossmatch 11/08/19 11/08/19 11/08/19 03:45 03:45 11:43 WBC 12.7 H RBC 2.82 L Hgb 7.8 L Hct 24.4 L MCHC RDW 16.5 H Plt Count Lymph % (Auto) 9.4 L [place] % (Auto) Lymph # [place] # 0.9 H Seg Neutrophils % 83.0 H Seg Neuts % (Manual) Lymphocytes % (Manual) Seg Neutrophils # 10.6 H Seg Neutrophils # Man Lymphocytes # (Manual) Monocytes # (Manual) POC ABG pH ABG pH POC ABG pCO2 POC ABG pO2 ABG pO2 ABG HCO3 ABG Base Excess ABG Hemoglobin Oxyhemoglobin Sodium Potassium Chloride Carbon Dioxide BUN Creatinine 0.4 L Glucose 107 H POC Glucose 118 H Calcium Phosphorus Magnesium Direct Bilirubin AST Alkaline Phosphatase C-Reactive Protein Serum Total Protein Total Protein Albumin Prealbumin Umydn-4-Mvfvodofa Yfphj-7-Pzudnovxi Gamma Globulins PEP Interpretation Triglycerides Urine pH Urine Creatinine Urine Total Protein Vancomycin Trough Digoxin Crossmatch 11/08/19 11/09/19 11/09/19 23:45 12:41 12:56 WBC RBC Hgb Hct MCHC RDW Plt Count Lymph % (Auto) [place] % (Auto) Lymph # [place] # Seg Neutrophils % Seg Neuts % (Manual) Lymphocytes % (Manual) Seg Neutrophils # Seg Neutrophils # Man Lymphocytes # (Manual) Monocytes # (Manual) POC ABG pH ABG pH POC ABG pCO2 POC ABG pO2 ABG pO2 ABG HCO3 ABG Base Excess ABG Hemoglobin Oxyhemoglobin Sodium Potassium Chloride Carbon Dioxide BUN Creatinine Glucose POC Glucose 113 H 107 H 122 H Calcium Phosphorus Magnesium Direct Bilirubin AST Alkaline Phosphatase C-Reactive Protein Serum Total Protein Total Protein Albumin Prealbumin Hwuec-0-Zmkycfgau Ekogn-3-Urndmvoei Gamma Globulins PEP Interpretation Triglycerides Urine pH Urine Creatinine Urine Total Protein Vancomycin Trough Digoxin Crossmatch 11/10/19 11/10/19 11/11/19 05:12 12:20 12:13 WBC RBC Hgb Hct MCHC RDW Plt Count Lymph % (Auto) [place] % (Auto) Lymph # [place] # Seg Neutrophils % Seg Neuts % (Manual) Lymphocytes % (Manual) Seg Neutrophils # Seg Neutrophils # Man Lymphocytes # (Manual) Monocytes # (Manual) POC ABG pH ABG pH POC ABG pCO2 POC ABG pO2 ABG pO2 ABG HCO3 ABG Base Excess ABG Hemoglobin Oxyhemoglobin Sodium Potassium Chloride Carbon Dioxide BUN Creatinine Glucose POC Glucose 127 H 125 H 107 H Calcium Phosphorus Magnesium Direct Bilirubin AST Alkaline Phosphatase C-Reactive Protein Serum Total Protein Total Protein Albumin Prealbumin Hfale-1-Gfvnaxaab Ltaxn-2-Rzpiyluvv Gamma Globulins PEP Interpretation Triglycerides Urine pH Urine Creatinine Urine Total Protein Vancomycin Trough Digoxin Crossmatch 11/11/19 11/11/19 11/12/19 17:29 22:20 06:00 WBC RBC 2.77 L Hgb 7.8 L Hct 23.4 L MCHC RDW 16.6 H Plt Count Lymph % (Auto) 11.9 L [place] % (Auto) 8.9 H Lymph # [place] # 0.9 H Seg Neutrophils % 78.2 H Seg Neuts % (Manual) Lymphocytes % (Manual) Seg Neutrophils # 8.2 H Seg Neutrophils # Man Lymphocytes # (Manual) Monocytes # (Manual) POC ABG pH ABG pH POC ABG pCO2 POC ABG pO2 ABG pO2 ABG HCO3 ABG Base Excess ABG Hemoglobin Oxyhemoglobin Sodium Potassium Chloride Carbon Dioxide BUN Creatinine Glucose POC Glucose 120 H 109 H Calcium Phosphorus Magnesium Direct Bilirubin AST Alkaline Phosphatase C-Reactive Protein Serum Total Protein Total Protein Albumin Prealbumin Didaf-6-Mgthnwqoc Doppp-5-Opaipsgwl Gamma Globulins PEP Interpretation Triglycerides Urine pH Urine Creatinine Urine Total Protein Vancomycin Trough Digoxin Crossmatch 11/12/19 11/12/19 11/12/19 07:52 11:58 23:44 WBC RBC Hgb Hct MCHC RDW Plt Count Lymph % (Auto) [place] % (Auto) Lymph # [place] # Seg Neutrophils % Seg Neuts % (Manual) Lymphocytes % (Manual) Seg Neutrophils # Seg Neutrophils # Man Lymphocytes # (Manual) Monocytes # (Manual) POC ABG pH ABG pH POC ABG pCO2 POC ABG pO2 ABG pO2 ABG HCO3 ABG Base Excess ABG Hemoglobin Oxyhemoglobin Sodium Potassium Chloride Carbon Dioxide BUN Creatinine Glucose POC Glucose 120 H 140 H 116 H Calcium Phosphorus Magnesium Direct Bilirubin AST Alkaline Phosphatase C-Reactive Protein Serum Total Protein Total Protein Albumin Prealbumin Lebxw-5-Ujmbupyvb Vubud-6-Wncbsylqe Gamma Globulins PEP Interpretation Triglycerides Urine pH Urine Creatinine Urine Total Protein Vancomycin Trough Digoxin Crossmatch 11/13/19 11/13/19 04:33 04:33 WBC 11.2 H RBC 2.90 L Hgb 8.1 L Hct 24.5 L MCHC RDW 16.5 H Plt Count Lymph % (Auto) 10.1 L [place] % (Auto) 7.6 H Lymph # 1.1 L [place] # 0.9 H Seg Neutrophils % 81.1 H Seg Neuts % (Manual) Lymphocytes % (Manual) Seg Neutrophils # 9.1 H Seg Neutrophils # Man Lymphocytes # (Manual) Monocytes # (Manual) POC ABG pH ABG pH POC ABG pCO2 POC ABG pO2 ABG pO2 ABG HCO3 ABG Base Excess ABG Hemoglobin Oxyhemoglobin Sodium 135 L Potassium Chloride 91.9 L Carbon Dioxide BUN Creatinine 0.6 L Glucose POC Glucose Calcium Phosphorus Magnesium Direct Bilirubin AST Alkaline Phosphatase C-Reactive Protein Serum Total Protein Total Protein Albumin Prealbumin Gokel-9-Lawguumsw Oiqwi-7-Gtbariokq Gamma Globulins PEP Interpretation Triglycerides Urine pH Urine Creatinine Urine Total Protein Vancomycin Trough Digoxin Crossmatch
[2019-11-13] MEDS: CITALOPRAM 20 MG TAB PO SCH (15:24)
[2019-11-13] MEDS: LISINOPRIL 20 MG TAB PO SCH (15:24)
[2019-11-13] MEDS: AMIODARONE 200 MG TAB PO SCH (15:25)
[2019-11-13] MEDS: PANTOPRAZOLE 40 MG INJ IV SCH (15:25)
[2019-11-13] MEDS: HYDROcodone/APAP 7.5-325MG-15ML ORAL LIQD FEEDTUBE PRN (15:25)
--- NOTE | 2019-11-13 17:20 | Progress Note ---
Assessment and Plan Cultures 10/10/2019 surgical culture: No growth at 72 hours 10/13/2019 tracheal aspirate culture: No growth 10/13/2019 peritoneal fluid: Enterococcus species (S to Penicillin, Vancomycin) 10/15/2019 blood culture: no growth 10/26/2019 urine culture: no growth thus far 10/26/2019 blood culture: no growth at 24 hours Assessment: 54 yo M PMhx CAD, COPD, recent complicated course of bowel perforation after a colonoscopy admitted with surgical site dehiscence of the fascia. Now with: 1. Acute sepsis - leukocytosis stable, no fever. Most likely secondary to fluid collection/abscess in the abdomen and anastomotic leak. 2. Intra-abdominal infection from anastomotic leak - s/p ex lap with closure of abdominal wall and wound vac placement (10/05/2019); s/p Re-exploration, washout, transection of colon, Abthera placement - 10/13/2019. s/p re- exploration and colostomy creation on 10/16/2019, intra-operatively was found to have "Small amount of continued leak from the old anastomotic site. Some con tamination still present. Bowel was all viable". Back on OR on 10/19/2019, findings "small leak from stump staple line". OR again on 10/22/2019 for: Abdominal washout. Closure of abdominal fascia. Wound vac placement. Findings, "contamination from the sigmoid stump closure site". New drain placed 10/30 with stool-like output. Repeat CT on 11/01 showed increasing left pneumothorax, LLL consolidation, edson effusions. Completed prolonged empiric abx course with Meropenem, Micafungin and Vancomycin. 3. COPD, acute respiratory failure: on the vent. s/p extubation. On NC O2. 4. Penicillin allergy - likely not a true allergy, reviewed EMR for previous exposure to PCNs, patient received several days of Zosyn in 2018 without issue. 5. Left pneumothorax s/p chest tube placement on 10/30/2019. Chest tube removed on 11/12/2019. Recs: continue to monitor off antibiotics. WBC stable Julianna Pineda MD, FACP [facility] ([facility] C: [phone] O: [phone] F: [phone] Subjective Date of service: 11/13/19 Principal diagnosis: acute renal failure Interval history: Remains afebrile and stable. No new complaints. Drains +, Wound VAC +. No shortness of breath. Objective - Exam Narrative Exam: Physical Exam: Constitutional: awake, alert, no distress Head, Ears, Nose: Normocephalic, atraumatic. External ears, nose normal Eyes: Conjunctivae/corneas clear. No icterus. No ptosis. Neck: supple, no meningeal signs Cardiovascular: S1, S2 normal. Respiratory: clear b/l with no wheeze GI: Midline abdominal VAC. bowel sounds +, Colostomy +, multiple drains + Musculoskeletal: pedal edema + Skin: No rash or abscess Hem/Lymphatic: No palpable cervical or supraclavicular nodes. No lymphangitis Psych: no agitation Neurological: awake, alert, grossly non focal - Constitutional Vitals: Vital Signs Temp Pulse Resp BP Pulse Ox 99.7 F H 88 24 119/68 92 11/13/19 14:00 11/13/19 15:24 11/13/19 14:38 11/13/19 15:24 11/13/19 09:52 Temperature -Last 24 Hours Temperature 99.7 F Temperature 99.4 F Temperature 99.5 F Temperature 98.1 F Temperature 98.8 F - Labs CBC & Chem 7: 11/13/19 04:33 11/13/19 04:33 Labs: Abnormal lab results 11/12/19 11/13/19 11/13/19 Range/Units 23:44 04:33 04:33 WBC 11.2 H (4.5-11.0) K/mm3 RBC 2.90 L (3.65-5.03) M/mm3 Hgb 8.1 L (11.8-15.2) gm/dl Hct 24.5 L (35.5-45.6) % RDW 16.5 H (13.2-15.2) % Lymph % (Auto) 10.1 L (13.4-35.0) % [place] % (Auto) 7.6 H (0.0-7.3) % Lymph # 1.1 L (1.2-5.4) K/mm3 [place] # 0.9 H (0.0-0.8) K/mm3 Seg Neutrophils % 81.1 H (40.0-70.0) % Seg Neutrophils # 9.1 H (1.8-7.7) K/mm3 Sodium 135 L (137-145) mmol/L Chloride 91.9 L (98-107) mmol/L Creatinine 0.6 L (0.8-1.5) mg/dL POC Glucose 116 H (70-105) 11/13/19 Range/Units 13:43 WBC (4.5-11.0) K/mm3 RBC (3.65-5.03) M/mm3 Hgb (11.8-15.2) gm/dl Hct (35.5-45.6) % RDW (13.2-15.2) % Lymph % (Auto) (13.4-35.0) % [place] % (Auto) (0.0-7.3) % Lymph # (1.2-5.4) K/mm3 [place] # (0.0-0.8) K/mm3 Seg Neutrophils % (40.0-70.0) % Seg Neutrophils # (1.8-7.7) K/mm3 Sodium (137-145) mmol/L Chloride (98-107) mmol/L Creatinine (0.8-1.5) mg/dL POC Glucose 122 H (70-105)
[2019-11-13] MEDS: ENOXAPARIN 40 MG/0.4 ML INJ SUB-Q SCH (21:33)
[2019-11-14] MEDS: INSULIN LISPRO 100 UNIT/ML SUB-Q SCH ×4 (00:35→23:32)
[2019-11-14] MEDS: IPRATROPIUM/ALBUTEROL SULFATE 3 ML AMPUL.NEB IH SCH ×4 (02:31→19:46)
[2019-11-14] MEDS: METOPROLOL TARTRATE 50 MG TAB PO SCH ×3 (05:35→23:28)
[2019-11-14] MEDS: BUDESONIDE 0.5 MG/2 ML NEBU IH SCH ×2 (08:33→19:46)
[2019-11-14] MEDS: ARFORMOTEROL 15 MCG/2 ML NEBU IH SCH ×2 (08:33→19:46)
--- NOTE | 2019-11-14 09:26 | Progress Note ---
Assessment and Plan Assessment and plan: Sepsis, improved. Abx per ID. Enterococcus on cultures. If patient has worsening labs/vitals, then rescan and place additional drains as appropriate. ID plans trial off antibiotics. Dehiscence of closure of fascia s/p ex lap with closure of abdominal wall and wound vac placement (10/05) - POD#37; s/p Re-exploration, washout, transection of colon, Abthera placement - 10/13 - POD#29; s/p abd washout, partial omentectomy, partial colectomy with colostomy - 10/16 POD#26. s/p abd washout, feeding tube placement, AbThera placement - 10/19 - POD#23; Abdominal washout and closure - 10/22 - POD#20 Acute Respiratory failure with hypoxia -Extubated 10/25/19 -Re-intubated 10/30 -Patient self extubated morning of 11/04, now on Oxygen by AL -Hand Drawer In Helper following -Multifactorial secondary to pneumonia, pneumothorax and COPD Sepsis On Merrem, Micafungin ID Physician following right sump drain fell out Surgeon following Left pneumothorax s/p chest tube placed 10/30 Resolved. Left lower lobe pneumonia -CTA chest showed left lower lobe consolidation with pleural effusion COPD -Stable -cont neb tx GUILLERMO on CKD -due to ATN due to sepsis -Resolved. Recheck BMP in a.m. -No hydronephrosis on CT Severe Metabolic acidosis -Improved Acute Toxic Metabolic Encephalopathy/Delirium Tremens. Resolved. -Continue CIWA protocol due to hx of ETOH abuse, 6packs a day -Head CT scan negative for acute findings Acute blood loss anemia -H/H stable -Continue to monitor H&H and transfuse for hb<7 SVT, Atrial fib/flutter with RVR -treated with adenosine x1 -off amiodarone and cardizem drip. On oral amiodarone and IV Lopressor. -HR currently controlled -Cardiology following Hx of Hypertension -Stable Hyperlipidemia -stable Atypical chest pain -probably secondary to pneumonitis -troponin levels neg Hx of AK/CAD -s/p PCI of the circumflex and second vessel POBA of the distal LAD occlusion. Left ventricle fraction of 45-50%. Morbid obesity with BMI of 43.4 -Lifestyle modification recommended Moderate Protein calorie malnutrition secondary to surgery -On TPN -Nutrition following Tobacco abuse -Cessation recommended Morbid obesity with BMI of 43.4 -Lifestyle modification recommended DVT and GI ppx: Lovenox/PPI He feels better. Stable to transfer to [facility]. History Interval history: feels better, Tolerating diet Hospitalist Physical - Physical exam Narrative exam: Gen: Not in acute distress, On Oxygen by NC HEENT: Normocephalic, atraumatic Neck: supple, no JVD Heart: S1 and S2 reg, no murmurs, rubs or gallop Lungs: Chest tube on left, Abd: soft, NT, ostomy, wound vac, left drain Ext: No edema, no clubbing no cyanosis Neuro: Awake,alert , oriented X 3, moves all ext - Constitutional Vitals: Temp Pulse Resp BP Pulse Ox 98.0 F 80 17 104/52 100 11/14/19 04:51 11/14/19 06:00 11/14/19 06:00 11/14/19 06:00 11/14/19 06:00 General appearance: Present: no acute distress, obese Results - Labs CBC & Chem 7: 11/13/19 04:33 11/13/19 04:33 Labs: Laboratory Last Values WBC 11.2 K/mm3 (4.5-11.0) H 11/13/19 04:33 RBC 2.90 M/mm3 (3.65-5.03) L 11/13/19 04:33 Hgb 8.1 gm/dl (11.8-15.2) L 11/13/19 04:33 Hct 24.5 % (35.5-45.6) L 11/13/19 04:33 MCV 85 fl (84-94) 11/13/19 04:33 MCH 28 pg (28-32) 11/13/19 04:33 MCHC 33 % (32-34) 11/13/19 04:33 RDW 16.5 % (13.2-15.2) H 11/13/19 04:33 Plt Count 292 K/mm3 (140-440) 11/13/19 04:33 Lymph % (Auto) 10.1 % (13.4-35.0) L 11/13/19 04:33 Morgan % (Auto) 7.6 % (0.0-7.3) H 11/13/19 04:33 Eos % (Auto) 0.7 % (0.0-4.3) 11/13/19 04:33 Baso % (Auto) 0.5 % (0.0-1.8) 11/13/19 04:33 Lymph # 1.1 K/mm3 (1.2-5.4) L 11/13/19 04:33 Morgan # 0.9 K/mm3 (0.0-0.8) H 11/13/19 04:33 Eos # 0.1 K/mm3 (0.0-0.4) 11/13/19 04:33 Baso # 0.1 K/mm3 (0.0-0.1) 11/13/19 04:33 Add Manual Diff Complete 10/16/19 09:20 Total Counted 100 10/16/19 09:20 Seg Neutrophils % 81.1 % (40.0-70.0) H 11/13/19 04:33 Seg Neuts % (Manual) 79.0 % (40.0-70.0) H 10/16/19 09:20 Band Neutrophils % 12.0 % 10/16/19 09:20 Lymphocytes % (Manual) 4.0 % (13.4-35.0) L 10/16/19 09:20 Reactive Lymphs % (Man) 0 % 10/16/19 09:20 Monocytes % (Manual) 2.0 % (0.0-7.3) 10/16/19 09:20 Eosinophils % (Manual) 0 % (0.0-4.3) 10/16/19 09:20 Basophils % (Manual) 0 % (0.0-1.8) 10/16/19 09:20 Metamyelocytes % 2.0 % 10/16/19 09:20 Myelocytes % 1.0 % 10/16/19 09:20 Promyelocytes % 0 % 10/16/19 09:20 Blast Cells % 0 % 10/16/19 09:20 Nucleated RBC % Not Reportable 10/16/19 09:20 Seg Neutrophils # 9.1 K/mm3 (1.8-7.7) H 11/13/19 04:33 Seg Neutrophils # Man 11.5 K/mm3 (1.8-7.7) H 10/16/19 09:20 Band Neutrophils # 1.8 K/mm3 10/16/19 09:20 Lymphocytes # (Manual) 0.6 K/mm3 (1.2-5.4) L 10/16/19 09:20 Abs React Lymphs (Man) 0.0 K/mm3 10/16/19 09:20 Monocytes # (Manual) 0.3 K/mm3 (0.0-0.8) 10/16/19 09:20 Eosinophils # (Manual) 0.0 K/mm3 (0.0-0.4) 10/16/19 09:20 Basophils # (Manual) 0.0 K/mm3 (0.0-0.1) 10/16/19 09:20 Metamyelocytes # 0.3 K/mm3 10/16/19 09:20 Myelocytes # 0.1 K/mm3 10/16/19 09:20 Promyelocytes # 0.0 K/mm3 10/16/19 09:20 Blast Cells # 0.0 K/mm3 10/16/19 09:20 WBC Morphology Not Reportable 10/16/19 09:20 Hypersegmented Neuts Not Reportable 10/16/19 09:20 Hyposegmented Neuts Not Reportable 10/16/19 09:20 Hypogranular Neuts Not Reportable 10/16/19 09:20 Smudge Cells Not Reportable 10/16/19 09:20 Toxic Granulation Not Reportable 10/16/19 09:20 Toxic Vacuolation Not Reportable 10/16/19 09:20 Dohle Bodies Not Reportable 10/16/19 09:20 Pelger-Huet Anomaly Not Reportable 10/16/19 09:20 Andres Rods Not Reportable 10/16/19 09:20 Platelet Estimate Consistent w auto 10/16/19 09:20 Clumped Platelets Not Reportable 10/16/19 09:20 Plt Clumps, EDTA Not Reportable 10/16/19 09:20 Large Platelets Not Reportable 10/16/19 09:20 Giant Platelets Not Reportable 10/16/19 09:20 Platelet Satelliting Not Reportable 10/16/19 09:20 Plt Morphology Comment Not Reportable 10/16/19 09:20 RBC Morphology Not Reportable 10/16/19 09:20 Dimorphic RBCs Not Reportable 10/16/19 09:20 Polychromasia Few 10/16/19 09:20 Hypochromasia Few 10/16/19 09:20 Poikilocytosis Not Reportable 10/16/19 09:20 Anisocytosis Not Reportable 10/16/19 09:20 Microcytosis Not Reportable 10/16/19 09:20 Macrocytosis Not Reportable 10/16/19 09:20 Spherocytes Not Reportable 10/16/19 09:20 Pappenheimer Bodies Not Reportable 10/16/19 09:20 Sickle Cells Not Reportable 10/16/19 09:20 Target Cells Few 10/16/19 09:20 Tear Drop Cells Not Reportable 10/16/19 09:20 Ovalocytes Not Reportable 10/16/19 09:20 Helmet Cells Not Reportable 10/16/19 09:20 [place] Bodies Not Reportable 10/16/19 09:20 [place] Rings Not Reportable 10/16/19 09:20 Bishnu Cells Not Reportable 10/16/19 09:20 Bite Cells Not Reportable 10/16/19 09:20 Crenated Cell Not Reportable 10/16/19 09:20 Elliptocytes Not Reportable 10/16/19 09:20 Acanthocytes (Spur) Not Reportable 10/16/19 09:20 Rouleaux Not Reportable 10/16/19 09:20 Hemoglobin C Crystals Not Reportable 10/16/19 09:20 Schistocytes Not Reportable 10/16/19 09:20 Malaria parasites Not Reportable 10/16/19 09:20 Toni Bodies Not Reportable 10/16/19 09:20 Hem Pathologist Commnt No 10/16/19 09:20 POC ABG pH 7.422 (7.35-7.45) 11/03/19 04:28 ABG pH 7.390 pH Units (7.350-7.450) 10/23/19 04:47 POC ABG pCO2 45.4 (35-45) H 11/03/19 04:28 ABG pCO2 48.4 mm Hg 10/23/19 04:47 POC ABG pO2 83 (80-105) 11/03/19 04:28 ABG pO2 68.9 mm Hg (80.0-90.0) L 10/23/19 04:47 POC ABG HCO3 29.6 (22-26 mml/L) 11/03/19 04:28 ABG HCO3 28.7 mmol/L (20.0-26.0) H 10/23/19 04:47 POC ABG Total CO2 31 (23-27mmol/L) 11/03/19 04:28 POC ABG O2 Sat 96 11/03/19 04:28 ABG O2 Saturation 96.6 % (95.0-99.0) 10/23/19 04:47 ABG O2 Content 8.8 (0.0-44) 10/23/19 04:47 POC ABG Base Excess 5 ((-2) - (+3)mmol/L) 11/03/19 04:28 ABG Base Excess 3.4 mmol/L (-2.0-3.0) H 10/23/19 04:47 ABG Hemoglobin 6.6 gm/dl (14.0-18.0) L 10/23/19 04:47 ABG Carboxyhemoglobin 2.1 % (0.0-5.0) 10/23/19 04:47 ABG Methemoglobin 0.5 % (0.0-1.5) 10/23/19 04:47 Oxyhemoglobin 94.1 % (95.0-99.0) L 10/23/19 04:47 FiO2 40 % 11/03/19 04:28 Sodium 135 mmol/L (137-145) L 11/13/19 04:33 Potassium 4.0 mmol/L (3.6-5.0) 11/13/19 04:33 Chloride 91.9 mmol/L (98-107) L 11/13/19 04:33 Carbon Dioxide 28 mmol/L (22-30) 11/13/19 04:33 Anion Gap 19 mmol/L 11/13/19 04:33 BUN 15 mg/dL (9-20) 11/13/19 04:33 Creatinine 0.6 mg/dL (0.8-1.5) L 11/13/19 04:33 Estimated GFR > 60 ml/min 11/13/19 04:33 BUN/Creatinine Ratio 25 % 11/13/19 04:33 Glucose 85 mg/dL (75-100) 11/13/19 04:33 POC Glucose 79 (70-105) 11/14/19 06:19 Hemoglobin A1c 5.7 % (4-6) 10/06/19 05:36 Lactic Acid 1.10 mmol/L (0.7-2.0) 10/13/19 04:20 Calcium 9.3 mg/dL (8.4-10.2) 11/13/19 04:33 Ionized Calcium 5.2 mg/dL (4.8-5.6) 10/18/19 07:41 Phosphorus 2.70 mg/dL (2.5-4.5) 11/02/19 12:43 Magnesium 2.40 mg/dL (1.7-2.3) H 11/02/19 12:43 Total Bilirubin 1.10 mg/dL (0.1-1.2) 10/26/19 06:15 Direct Bilirubin 0.7 mg/dL (0-0.2) H 10/23/19 10:44 Indirect Bilirubin 0.1 mg/dL 10/23/19 10:44 AST 23 units/L (5-40) 10/26/19 06:15 ALT 13 units/L (7-56) 10/26/19 06:15 Alkaline Phosphatase 148 units/L (35-129) H 10/26/19 06:15 Ammonia 49.0 umol/L (25-60) 10/13/19 04:20 Troponin T < 0.010 ng/mL (0.00-0.029) 10/09/19 17:23 C-Reactive Protein 30.60 mg/dL (0.00-1.30) H 10/15/19 04:32 Serum Total Protein 5.2 g/dL (6.1-8.1) L 10/11/19 09:00 Total Protein 5.9 g/dL (6.3-8.2) L 10/26/19 06:15 Albumin 2.4 g/dL (3.9-5) L 10/26/19 06:15 Albumin/Globulin Ratio 0.7 % 10/26/19 06:15 Prealbumin 0.030 g/L (0.200-0.400) L 10/15/19 04:32 [id number] See scanned result 10/11/19 Unknown Ihkke-[id number] See scanned result 10/11/19 Unknown Beta Globulins See scanned result 10/11/19 Unknown Gamma Globulins See scanned result 10/11/19 Unknown Abnorm Protein Band 1 see below 10/11/19 09:00 PEP Interpretation See scanned result 10/11/19 Unknown Triglycerides 185 mg/dL (2-149) H 10/26/19 06:15 Urine Color Yellow (Yellow) 10/26/19 Unknown Urine Turbidity Clear (Clear) 10/26/19 Unknown Urine pH 9.0 (5.0-7.0) H 10/26/19 Unknown Ur Specific [place] 1.011 (1.003-1.030) 10/26/19 Unknown Urine Protein 30 mg/dl mg/dL (Negative) 10/26/19 Unknown Urine Glucose (UA) Neg mg/dL (Negative) 10/26/19 Unknown Urine Ketones Neg mg/dL (Negative) 10/26/19 Unknown Urine Blood Neg (Negative) 10/26/19 Unknown Urine Nitrite Neg (Negative) 10/26/19 Unknown Urine Bilirubin Neg (Negative) 10/26/19 Unknown Urine Urobilinogen < 2.0 mg/dL (<2.0) 10/26/19 Unknown Ur Leukocyte Esterase Neg (Negative) 10/26/19 Unknown Urine WBC (Auto) 1.0 /HPF (0.0-6.0) 10/26/19 Unknown Urine RBC (Auto) 1.0 /HPF (0.0-6.0) 10/26/19 Unknown Urine Bacteria (Auto) 1+ /HPF (Negative) 10/11/19 06:23 Urine Mucus Few /HPF 10/26/19 Unknown Urine Eosinophils None seen (None Seen) 10/11/19 06:23 Ur Random Creatinine See scanned result 10/11/19 Unknown U Random Total Protein See scanned result 10/11/19 Unknown Urine Creatinine 116.8 mg/dL (0.1-20.0) H 10/11/19 06:23 Urine Creatinine 118.2 mg/dL (0.1-20.0) H 10/11/19 06:23 Protein/Creatinin Ratio See scanned result 10/11/19 Unknown Urine Sodium 14 mmol/L 10/11/19 06:23 Urine Total Protein 104 mg/dL (5-11.8) H 10/11/19 06:23 Urine Total Protein 105 mg/dL (5-11.8) H 10/11/19 06:23 U Abnormal Prot Band 1 See scanned result 10/11/19 Unknown U Abnormal Prot Band 2 See scanned result 10/11/19 Unknown U Abnormal Prot Band 3 See scanned result 10/11/19 Unknown Vancomycin Trough 5.7 ug/mL (5.0-20.0) 11/05/19 09:00 Random Vancomycin 9.6 ug/mL (0-40.0) 11/03/19 03:42 Digoxin 0.7 ng/mL (0.9-2.0) L 10/19/19 04:21 Blood Type A POSITIVE 10/23/19 11:50 Antibody Screen Negative 10/23/19 11:50 Crossmatch See Detail 10/23/19 11:50 Active Medications - Current Medications Current Medications: Generic Name Dose Route Start Last Admin Trade Name Freq PRN Reason Stop Dose Admin Acetaminophen 650 mg 10/25/19 13:00 11/03/19 16:03 Tylenol FEEDTUBE 650 mg Q4H PRN Administration Fever >100.5 Acetaminophen/Hydrocodone Bitart 7.5 mg 11/07/19 16:57 11/13/19 15:25 Hydrocodone/Apap 7.5-325 FEEDTUBE 7.5 mg Q4H PRN Administration Pain, Moderate (4-6) Albuterol/Ipratropium 1 ampul 10/06/19 02:00 11/14/19 08:33 Duoneb *Not For Prn Use* IH 1 ampul Q6HRT VERÓNICA Administration Amiodarone HCl 200 mg 10/23/19 13:00 11/13/19 15:25 Cordarone PO 200 mg QDAY VERÓNICA Administration Lipase/Protease/Amylase 1 each 10/20/19 10:37 Pancreazanamika Moreno 10,500 Unit FEEDTUBE PRN PRN For Clogged Feeding Tube Arformoterol Tartrate 15 mcg 10/06/19 08:30 11/14/19 08:33 Brovana Nebu IH 15 mcg Q12HRT VERÓNICA Administration Budesonide 0.5 mg 10/07/19 12:20 11/14/19 08:33 Pulmicort IH 0.5 mg Q12HRT VERÓNICA Administration Citalopram Hydrobromide 20 mg 10/27/19 12:00 11/13/19 15:24 Celexa PO 20 mg DAILY VERÓNICA Administration Enoxaparin Sodium 40 mg 11/05/19 22:00 11/13/19 21:33 Enoxaparin SUB-Q 40 mg QDAY@2200 VERÓNICA Administration Haloperidol Lactate 5 mg 10/25/19 18:22 11/12/19 03:33 Haldol IV 5 mg Q6H PRN Administration Agitation Hydralazine HCl 10 mg 10/28/19 14:09 11/02/19 15:34 Apresoline IV 10 mg Q4HR PRN Administration Hypertension Hydromorphone HCl 2 mg 10/25/19 12:35 11/12/19 22:59 Dilaudid IV 2 mg Q4H PRN Administration Pain , Severe (7-10) Insulin Human Lispro 0 unit 10/14/19 12:00 11/14/19 00:35 Humalog SUB-Q Not Given Q6HR [facility] Protocol Lisinopril 20 mg 10/30/19 10:00 11/13/19 15:24 Zestril PO 20 mg QDAY [facility] Administration Metoprolol Tartrate 2.5 mg 10/15/19 15:34 11/01/19 18:00 Metoprolol IV 2.5 mg Q4HR PRN Administration HR >130 Metoprolol Tartrate 50 mg 10/25/19 14:00 11/14/19 05:35 Metoprolol PO Not Given Q8HR [facility] Multi-Ingred Cream/Lotion/Oil/Oint 1 applic 10/14/19 02:19 Artificial Tears Ophth Oint OU Q4HR PRN Dry Eye(s) Pantoprazole Sodium 40 mg 10/15/19 10:00 11/13/19 15:25 Protonix IV 40 mg QDAY VERÓNICA Administration Simple Syrup 15 ml 10/20/19 10:37 Simple Syrup FEEDTUBE PRN PRN Hypoglycemia Simple Syrup 30 ml 10/20/19 10:37 Simple Syrup FEEDTUBE PRN PRN Hypoglycemia Sodium Bicarbonate 325 mg 10/20/19 10:37 11/14/19 05:59 Sodium Bicarbonate FEEDTUBE 325 mg PRN PRN Administration For Clogged Feeding Tube Sodium Chloride 10 ml 11/07/19 19:32 11/08/19 09:10 Sodium Chloride Flush Syringe 10 Ml IV 10 ml PRN PRN Administration LINE FLUSH Zolpidem Tartrate 5 mg 11/10/19 21:00 11/11/19 03:30 Ambien FEEDTUBE 5 mg QHS PRN Administration Sleep Nutrition/Malnutrition Assess - Dietary Evaluation Nutrition/Malnutrition Findings: Nutrition Notes Start: 10/08/19 11:36 Freq: Status: Active Protocol: Document 11/12/19 13:31 LM (Rec: 11/12/19 13:38 LM [email or web address]) Nutrition Notes Initial or Follow up Reassessment Current Diagnosis Acute Kidney Injury,COPD, Hypertension Other Pertinent Diagnosis intra-abdominal infection, disruption of bowel anastomosis, LE edema Current Diet Mechanical soft Labs/Tests POC glu 120 Pertinent Medications Reviewed Height 6 ft Weight 145 kg [place] Body Weight (kg) 80.90 BMI 43.3 Weight Status Morbidly Obese Subjective/Other Information Unable to see pt as nedside procedure taking place. Pt's diet advanced to full liquid over the weekend and now pt is on mechanical soft diet. Burn Absent Trauma Absent GI Symptoms None Minimum of two criteria No physical signs of malnutrition Fluid Accumulation Mild (non-severe) #2 Nutrition Diagnosis Inadequate oral intake Diagnosis Progress(for reassessment Continues documentation) #1 Nutrition Diagnosis Increased nutrient needs ( specify in comment below) Diagnosis Progress(for reassessment Continues documentation) Is patient on ventilator? No Is Patient Ambulatory and/or Out of Bed No REE-([facility]-confined to bed) 2785.236 Kcal/Kg value to use for calculation 14 Approximate Energy Requirements Using 2030 kcal/Kg Calculation Used for Recommendations Kcal/kg Additional Notes Protein: 136-169g (1.2-1.5g/kg ) AdjBW 113kg Fluid 1 ml/kcal or per MD Nutrition Intervention Change Diet Order: Continue mechanical soft Goal #1 Meet at least 80% of energy and protein needs via PO intakes Goal #2 diet tolerance Anticipated Discharge Needs: unable to determine at this time Follow-Up By: 11/15/19 Additional Comments F/U for PO intakes, tolerance
[2019-11-14] MEDS: CITALOPRAM 20 MG TAB PO SCH (10:54)
[2019-11-14] MEDS: AMIODARONE 200 MG TAB PO SCH (10:54)
[2019-11-14] MEDS: LISINOPRIL 20 MG TAB PO SCH (10:54)
[2019-11-14] MEDS: PANTOPRAZOLE 40 MG INJ IV SCH (10:54)
--- NOTE | 2019-11-14 12:22 | Progress Note ---
Assessment and Plan Cultures 10/10/2019 surgical culture: No growth at 72 hours 10/13/2019 tracheal aspirate culture: No growth 10/13/2019 peritoneal fluid: Enterococcus species (S to Penicillin, Vancomycin) 10/15/2019 blood culture: no growth 10/26/2019 urine culture: no growth thus far 10/26/2019 blood culture: no growth at 24 hours Assessment: 54 yo M PMhx CAD, COPD, recent complicated course of bowel perforation after a colonoscopy admitted with surgical site dehiscence of the fascia. Now with: 1. Acute sepsis - leukocytosis stable, no fever. Most likely secondary to fluid collection/abscess in the abdomen and anastomotic leak. 2. Intra-abdominal infection from anastomotic leak - s/p ex lap with closure of abdominal wall and wound vac placement (10/05/2019); s/p Re-exploration, washout, transection of colon, Abthera placement - 10/13/2019. s/p re- exploration and colostomy creation on 10/16/2019, intra-operatively was found to have "Small amount of continued leak from the old anastomotic site. Some con tamination still present. Bowel was all viable". Back on OR on 10/19/2019, findings "small leak from stump staple line". OR again on 10/22/2019 for: Abdominal washout. Closure of abdominal fascia. Wound vac placement. Findings, "contamination from the sigmoid stump closure site". New drain placed 10/30 with stool-like output. Repeat CT on 11/01 showed increasing left pneumothorax, LLL consolidation, edson effusions. Completed prolonged empiric abx course with Meropenem, Micafungin and Vancomycin. 3. COPD, acute respiratory failure: on the vent. s/p extubation. On NC O2. 4. Penicillin allergy - likely not a true allergy, reviewed EMR for previous exposure to PCNs, patient received several days of Zosyn in 2018 without issue. 5. Left pneumothorax s/p chest tube placement on 10/30/2019. Chest tube removed on 11/12/2019. Recs: has remained stable off abx for the last few days. ID will sign off at this time. If he has worsening WBC, would consider repeat CT scan. Julianna Pineda MD, FACP [facility] ([facility] C: [phone] O: [phone] F: [phone] Subjective Date of service: 11/14/19 Principal diagnosis: acute renal failure Interval history: Remains afebrile and stable. Awake, and alert, answering questions. Feels well. No new complaints. Drains +, Wound VAC +. No shortness of breath. Objective - Exam Narrative Exam: Physical Exam: Constitutional: awake, alert, no distress Head, Ears, Nose: Normocephalic, atraumatic. External ears, nose normal Eyes: Conjunctivae/corneas clear. No icterus. No ptosis. Neck: supple, no meningeal signs Cardiovascular: S1, S2 normal. Respiratory: clear b/l with no wheeze GI: Midline abdominal VAC. bowel sounds +, Colostomy +, multiple drains + Musculoskeletal: pedal edema + Skin: No rash or abscess Hem/Lymphatic: No palpable cervical or supraclavicular nodes. No lymphangitis Psych: no agitation Neurological: awake, alert, grossly non focal - Constitutional Vitals: Vital Signs Temp Pulse Resp BP Pulse Ox 98.0 F 90 18 115/58 90 11/14/19 08:00 11/14/19 10:54 11/14/19 08:30 11/14/19 10:54 11/14/19 10:00 Temperature -Last 24 Hours Temperature 98.0 F Temperature 98.0 F Temperature 98.2 F Temperature 98.2 F Temperature 99.7 F - Labs CBC & Chem 7: 11/13/19 04:33 11/13/19 04:33 Labs: Abnormal lab results 11/13/19 11/13/19 Range/Units 13:43 17:57 POC Glucose 122 H 127 H (70-105)
--- NOTE | 2019-11-14 15:41 | Progress Note ---
Assessment and Plan (1) Dehiscence of closure of fascia, superficial or muscular Current Visit: No Status: Acute Qualifiers: Encounter type: initial encounter Qualified Code(s): T81.32XA - Disruption of internal operation (surgical) wound, not elsewhere classified, initial encounter Plan to address problem: Pt stable. s/p ex lap with closure of abdominal wall and wound vac placement (10/05) - POD#40; s/p Re-exploration, washout, transection of colon, Abthera placement - 10/13 - POD#32; s/p abd washout, partial omentectomy, partial colectomy with colostomy - 10/16 POD#29. s/p abd washout, feeding tube placement, AbThera placement - 10/19 - POD#26; Abdominal washout and closure - 10/22 - POD#23 Patient appears stable. Rec: 1) Neuro - self-extubated 11/04. 2) CV - BP normal today 3) Resp - On NC. Small bore CT on left - removed 11/02. 4) GI - Ostomy looks good. Functioning. Sump drains - Right drain was accidentally pulled out (10/30). Left one is still functioning. New small bore catheter placed 10/30 - moderate output after drain was stripped. Has appeared like stool. looking thinner and more yellow today. Plan to connect both to wall suction - continuous. Output slowly trending down. Midline drain - seems to be working well. may eventually become main drain and we can remove the two left sided drains if their output is minimal. Wound Vac - wound looked good on last check. continue wound vac. Ostomy - functioning now. Formed pastelike stool in bag Gastric Port - Appears to be tolerating the clamping. Residuals are minimal (occasional high numbers). Ok to give water flushes in place of IVFs Jejunal port - clogged. continue to hold TF as patient tolerating soft diet 5) - BUN/Cr stable. 6) ID - Abx per ID. Enterococcus on cultures. If patient has worsening labs/vitals, then rescan and place additional drains as appropriate. 7) Nutrition - Tube feeds on hold due to clogged feeding port. Passed Speech Eval. Tolerating PO diet. 8) DVT prophylaxis - SCDs. Lovenox 9) Family -no family at bedside. 10) PT - will need rehab. 11) Dispo - SNF/rehab Note: Spoke with [facility] surgeon on 11/01/19 about possible transfer. They reviewed the notes that were sent and we discussed the case. They felt that they had nothing else to offer. They agreed with our management. Also agreed that an other exploration should not be done. If needed, additional drains can be placed. They did suggest putting a [place] tube in the rectum to decompress that area. (That has been done). This conversation was communicated to the . Please call with questions. Subjective Date of service: 11/14/19 Narrative: Pt seen and examined. States he feels fair. No f/c, Tolerating oral diet. Per RN, J port on feeding tube is clogged and could not be unclogged despite all attempts (Including coca cola). Ostomy functioning. Objective Vital Signs - 12hr 11/14/19 11/14/19 11/14/19 04:00 04:31 04:51 Temperature 98.0 F Pulse Rate 88 88 Pulse Rate [ Anterior Bilateral Throughout] Pulse Rate [ 90 From Monitor] Respiratory 23 24 Rate Respiratory Rate [Anterior Bilateral Throughout] Blood Pressure 99/53 78/34 O2 Sat by Pulse 91 93 Oximetry 11/14/19 11/14/19 11/14/19 05:01 05:31 05:35 Temperature Pulse Rate 86 90 87 Pulse Rate [ Anterior Bilateral Throughout] Pulse Rate [ From Monitor] Respiratory 24 22 Rate Respiratory Rate [Anterior Bilateral Throughout] Blood Pressure 101/45 101/45 90/52 O2 Sat by Pulse 93 100 Oximetry 11/14/19 11/14/19 11/14/19 06:00 07:00 08:00 Temperature 98.0 F Pulse Rate 80 87 86 Pulse Rate [ Anterior Bilateral Throughout] Pulse Rate [ 89 From Monitor] Respiratory 17 23 26 H Rate Respiratory Rate [Anterior Bilateral Throughout] Blood Pressure 104/52 108/60 119/71 O2 Sat by Pulse 100 97 95 Oximetry 11/14/19 11/14/19 11/14/19 08:30 09:00 10:00 Temperature Pulse Rate 91 H Pulse Rate [ 90 Anterior Bilateral Throughout] Pulse Rate [ From Monitor] Respiratory 20 Rate Respiratory 18 Rate [Anterior Bilateral Throughout] Blood Pressure 91/51 O2 Sat by Pulse 93 90 Oximetry 01/01/20 01/01/20 01/01/20 10:01 10:54 11:00 Temperature Pulse Rate 89 90 91 H Pulse Rate [ Anterior Bilateral Throughout] Pulse Rate [ From Monitor] Respiratory 24 21 Rate Respiratory Rate [Anterior Bilateral Throughout] Blood Pressure 86/59 115/58 109/57 O2 Sat by Pulse 97 Oximetry 11/14/19 11/14/19 11/14/19 12:00 12:01 14:19 Temperature 98.0 F Pulse Rate 86 91 H Pulse Rate [ 91 H Anterior Bilateral Throughout] Pulse Rate [ 86 From Monitor] Respiratory 25 H 28 H Rate Respiratory 18 Rate [Anterior Bilateral Throughout] Blood Pressure 126/59 O2 Sat by Pulse 94 95 Oximetry - General physical appearance Narrative Exam: Gen: AAOx3. NAD CV: s1, S2+ resp: even and unlabored Abd: soft, NT, ND. Wound vac in place with good seal. All drains in place and functioning. GJ tube in place. Ext: no c/c/e - Labs 11/13/19 04:33 11/13/19 04:33
--- NOTE | 2019-11-14 15:43 | Progress Note ---
Assessment and Plan 54 y/o male with anastomic leak 11/14/19: Pulm status stable. Wean FiO2 as tolerated, now down to room air. CM working on placement. PT/OT. Will continue to follow. 11/12/19: Spoke with surgery this am. Currently pleased with progress. Reviewed IR note, and they plan to remove CT today. Continue IS. Will speak with CM about looking into rehabs directly from IMCU as oppose to transferring to the floor first. 11/06: Chest tube intact. No air leak. Will ask IR if catheter can be pulled out normally (i.e. not some form of tunneled catheter). If so will have them take it out later this week. If [facility] beds available, good candidate for there, likely not quite ready for floor yet. 11/04: Stable self extubation. Continue chest tube to suction. Will likely start waterseal tomorrow. Goad maybe to get CT out Tuesday. All other drains per surgery. Encouraged use of IS regularly at the bedside and suctioning as needed per . 11/03: Looks clinically better. Na was better on repeat labs. Spoke with and surgery to update them both. Most likely will attempt extubation in the am. Will hold feeds for about an hour in the morning prior to extubation then restart. 11/02: Repeat labs this am. Hard time believing that 2 liters of normal saline made his sodium increase that much. Also, once i discuss with surgery, may consider giving more blood. Will also hold tube feeds briefly as well. In case any procedures. Lovenox held last night. Continue vent support 11/01: Spoke with Dr. Krause this am and understand his concerns. Have started the transfer process. Most ICU's throughout the city are on diversion or full. [facility] has received his Facesheet and we are awaiting to hear back from them. CXR is clear. Minimal vent settings. Will continue supportive care for now. Follow up any new ID recs given increasing white and fever. 10/31: Will check CXR tomorrow. Continue chest tube to suction. Will likely stay in until extubated. Continue drains. Explained to staff to be extremely careful with these drains so that they do not come out. 10/30: Acute on chronic respiratory failure requiring reintubation. Appreciate Anesthesia assistance as he was a difficult intubation when we had to change his tube out about 1 week ago. Will continue on 100% until after Scans and then start to wean back down. CXR yesterday looked like pulmonary edema but improved today with positive pressure. Continue supportive care and await results of scans. 10/29: Discussed today on rounds. Patient had some issues over the weekend with the ICE chips and liquids. Will obtain speech consult/eval prior to restarting clears today. Spoke with nutrition and they will adjust tube feeds with new goal. Once at goal will start to taper off TPN. ordered Incentive madhu to bedside. Will also restart home dose of elaine today. pain control and drainage monitoring. Will continue ICU care. 10/26: Patient stable overall. Not ready for floor. Would be ok with step down if beds are needed. If spikes temp again will order blood cultures x2, urine culture, UA and repeat CXR. Gave an additional 40 of lasix this am. Will give more potassium replacement. Continue trickle feeds for now. Will continue PO meds and restart home dose of citalopram. Wean FiO2 and flow for sats >88%. Mildly hypertensive but this was secondary to agitation. Normalizing now. 10/25: Will extubate today. Will use HFNC if distress or hypoxemia is noted. Not a good candidate for bipap given his recent abdominal issues. Spoke with who is now at bedside and surgery. Will continue to attempt to achieve net negative state daily. Hold on further albumin administration. Hypernatremia is iatrogenic from lasix administration Worse case scenario, will re-intubate with anesthesia. 10/24: Responding well to lasix and protein therapy. Will give 2 more doses of lasix today. Consider one for tonight as well. Last albumin today at 1800. CXR is stable, still with layering bilateral pleural effusions. Will reassess again tomorrow. Reviewed all other budget consultant notes. Spoke with sisters at bedside, updated and spoke with surgery. 10/23: Long discussion with surgery and via phone. Anasarca is likely from decreased oncotic pressure and immobility of several days now that abdomen is finally closed. Now fluid is essentially leaking into the interstitium now that the abdomen is shut and there is increased intra-abdominal pressure. Total Protein is 4.5 and albumin is 1.2. This is to be expected given current illness. Will attempt to increase oncotic pressure with 2 units of PRBC's and albumin infusions for the next 24 hours starting at midnight tonight. Will give lasix inbetween transfusions and then again tonight. CXR is consistent with pulmonary edema volume overload. Will continue vent for now and after sig nificant volume removal then will attempt extubation. Discussed with and she understands. Will continue to monitor. Agree with trickle feeds and cards has switched amio over to PO to be given through the G-tube. If tolerates, hopeful to be rid of TPN soon as this is necessary but excessive volume as well. 10/22: Added diprovan as more sedation was needed. Hopefully once closed and no leaks, patient can be extubated. Cards very concerned about length of time for IV amio. Will discuss with surgery the time frame that gut can be used. 10/21: Will hold on weaning until abdomen is closed, especially knowing mental status is good. Will focus on pain control. Replace electrolytes. Appreciate Surgery recs and detail. Follow up any new recs from cards. Or tomorrow for closure Subjective Date of service: 11/14/19 Principal diagnosis: acute renal failure Interval history: No acute events. Pulm status stable. Has been weaned down to room air. Objective Vital Signs - 12hr 11/14/19 11/14/19 11/14/19 04:00 04:31 04:51 Temperature 98.0 F Pulse Rate 88 88 Pulse Rate [ Anterior Bilateral Throughout] Pulse Rate [ 90 From Monitor] Respiratory 23 24 Rate Respiratory Rate [Anterior Bilateral Throughout] Blood Pressure 99/53 78/34 O2 Sat by Pulse 91 93 Oximetry 11/14/19 11/14/19 11/14/19 05:01 05:31 05:35 Temperature Pulse Rate 86 90 87 Pulse Rate [ Anterior Bilateral Throughout] Pulse Rate [ From Monitor] Respiratory 24 22 Rate Respiratory Rate [Anterior Bilateral Throughout] Blood Pressure 101/45 101/45 90/52 O2 Sat by Pulse 93 100 Oximetry 11/14/19 11/14/19 11/14/19 06:00 07:00 08:00 Temperature 98.0 F Pulse Rate 80 87 86 Pulse Rate [ Anterior Bilateral Throughout] Pulse Rate [ 89 From Monitor] Respiratory 17 23 26 H Rate Respiratory Rate [Anterior Bilateral Throughout] Blood Pressure 104/52 108/60 119/71 O2 Sat by Pulse 100 97 95 Oximetry 11/14/19 11/14/19 11/14/19 08:30 09:00 10:00 Temperature Pulse Rate 91 H Pulse Rate [ 90 Anterior Bilateral Throughout] Pulse Rate [ From Monitor] Respiratory 20 Rate Respiratory 18 Rate [Anterior Bilateral Throughout] Blood Pressure 91/51 O2 Sat by Pulse 93 90 Oximetry 11/14/19 11/14/19 11/14/19 10:01 10:54 11:00 Temperature Pulse Rate 89 90 91 H Pulse Rate [ Anterior Bilateral Throughout] Pulse Rate [ From Monitor] Respiratory 24 21 Rate Respiratory Rate [Anterior Bilateral Throughout] Blood Pressure 86/59 115/58 109/57 O2 Sat by Pulse 97 Oximetry 11/14/19 11/14/19 11/14/19 12:00 12:01 14:19 Temperature 98.0 F Pulse Rate 86 91 H Pulse Rate [ 91 H Anterior Bilateral Throughout] Pulse Rate [ 86 From Monitor] Respiratory 25 H 28 H Rate Respiratory 18 Rate [Anterior Bilateral Throughout] Blood Pressure 126/59 O2 Sat by Pulse 94 95 Oximetry Constitutional: no acute distress, alert, other (obese) Eyes: non-icteric ENT: oropharynx moist Neck: supple Effort: normal Ascultation: Bilateral: diminished breath sounds (bases) Cardiovascular: regular rate and rhythm (no mrg) Gastrointestinal: tender, other (obese, distended, ostomy in place; wound vac in place) Integumentary: normal Extremities: no cyanosis, pink and warm, edema (1+ bilateral LE edema) Neurologic: normal mental status, non-focal exam, pupils equal and round Psychiatric: mood appropriate, affect normal CBC and BMP: 11/13/19 04:33 11/13/19 04:33 ABG, PT/INR, D-dimer: ABG POC ABG pH 7.422 (7.35-7.45) 11/03/19 04:28 ABG pH 7.390 pH Units (7.350-7.450) 10/23/19 04:47 POC ABG pCO2 45.4 (35-45) H 11/03/19 04:28 ABG pCO2 48.4 mm Hg 10/23/19 04:47 POC ABG pO2 83 (80-105) 11/03/19 04:28 ABG pO2 68.9 mm Hg (80.0-90.0) L 10/23/19 04:47 POC ABG HCO3 29.6 (22-26 mml/L) 11/03/19 04:28 POC ABG Total CO2 31 (23-27mmol/L) 11/03/19 04:28 POC ABG O2 Sat 96 11/03/19 04:28 ABG O2 Saturation 96.6 % (95.0-99.0) 10/23/19 04:47 Abnormal lab findings: Abnormal Labs 10/06/19 10/06/19 10/07/19 05:36 05:36 05:54 WBC 21.8 H 21.5 H RBC 3.55 L Hgb 10.9 L Hct 32.7 L MCHC RDW Plt Count Lymph % (Auto) [place] % (Auto) Lymph # [place] # Seg Neutrophils % Seg Neuts % (Manual) 91.0 H Lymphocytes % (Manual) 2.0 L Seg Neutrophils # Seg Neutrophils # Man 19.8 H Lymphocytes # (Manual) 0.4 L Monocytes # (Manual) 1.1 H POC ABG pH ABG pH POC ABG pCO2 POC ABG pO2 ABG pO2 ABG HCO3 ABG Base Excess ABG Hemoglobin Oxyhemoglobin Sodium 135 L Potassium Chloride 95.9 L Carbon Dioxide BUN Creatinine 0.7 L Glucose POC Glucose Calcium Phosphorus Magnesium Direct Bilirubin AST Alkaline Phosphatase C-Reactive Protein Serum Total Protein Total Protein 5.7 L Albumin 2.5 L Prealbumin Ozdzk-8-Dwgaizuai Uudai-9-Liuewopuv Gamma Globulins PEP Interpretation Triglycerides Urine pH Urine Creatinine Urine Total Protein Vancomycin Trough Digoxin Crossmatch 10/07/19 10/09/19 10/09/19 05:54 10:52 10:52 WBC 16.6 H RBC Hgb Hct MCHC RDW Plt Count 498 H Lymph % (Auto) [place] % (Auto) Lymph # [place] # Seg Neutrophils % Seg Neuts % (Manual) 93.0 H Lymphocytes % (Manual) 5.0 L Seg Neutrophils # Seg Neutrophils # Man 15.4 H Lymphocytes # (Manual) 0.8 L Monocytes # (Manual) POC ABG pH ABG pH POC ABG pCO2 POC ABG pO2 ABG pO2 ABG HCO3 ABG Base Excess ABG Hemoglobin Oxyhemoglobin Sodium Potassium Chloride 97.9 L Carbon Dioxide 20 L D BUN 23 H Creatinine 1.7 H D Glucose 109 H POC Glucose Calcium 8.1 L Phosphorus Magnesium Direct Bilirubin AST Alkaline Phosphatase C-Reactive Protein Serum Total Protein Total Protein Albumin Prealbumin Aswil-9-Cyjlxnjlo Wcruc-3-Kwlpmxfyj Gamma Globulins PEP Interpretation Triglycerides Urine pH Urine Creatinine Urine Total Protein Vancomycin Trough Digoxin Crossmatch 10/09/19 10/10/19 10/10/19 17:23 05:30 05:30 WBC 14.6 H RBC Hgb 11.1 L Hct 33.5 L MCHC RDW Plt Count 527 H Lymph % (Auto) [place] % (Auto) Lymph # [place] # Seg Neutrophils % Seg Neuts % (Manual) Lymphocytes % (Manual) Seg Neutrophils # Seg Neutrophils # Man Lymphocytes # (Manual) Monocytes # (Manual) POC ABG pH ABG pH POC ABG pCO2 POC ABG pO2 ABG pO2 ABG HCO3 ABG Base Excess ABG Hemoglobin Oxyhemoglobin Sodium 130 L D Potassium 5.1 H Chloride 90.0 L 91.0 L Carbon Dioxide 20 L 20 L BUN 27 H 35 H Creatinine 1.9 H 2.0 H Glucose 104 H POC Glucose Calcium Phosphorus Magnesium Direct Bilirubin AST Alkaline Phosphatase C-Reactive Protein Serum Total Protein Total Protein Albumin Prealbumin Ggmws-2-Ufmvfrgng Neuth-1-Tcngfygok Gamma Globulins PEP Interpretation Triglycerides Urine pH Urine Creatinine Urine Total Protein Vancomycin Trough Digoxin Crossmatch 10/10/19 10/10/19 10/11/19 08:33 08:44 05:41 WBC 13.2 H RBC Hgb 11.3 L Hct 33.8 L MCHC RDW 15.3 H Plt Count 543 H Lymph % (Auto) [place] % (Auto) Lymph # [place] # Seg Neutrophils % Seg Neuts % (Manual) Lymphocytes % (Manual) Seg Neutrophils # Seg Neutrophils # Man Lymphocytes # (Manual) Monocytes # (Manual) POC ABG pH ABG pH POC ABG pCO2 POC ABG pO2 ABG pO2 ABG HCO3 ABG Base Excess ABG Hemoglobin Oxyhemoglobin Sodium Potassium Chloride Carbon Dioxide BUN Creatinine Glucose 113 H POC Glucose 117 H Calcium Phosphorus Magnesium Direct Bilirubin AST Alkaline Phosphatase C-Reactive Protein Serum Total Protein Total Protein Albumin Prealbumin Usowb-3-Nhhcijkoz Gefgo-5-Jrdbpxmmj Gamma Globulins PEP Interpretation Triglycerides Urine pH Urine Creatinine Urine Total Protein Vancomycin Trough Digoxin Crossmatch 10/11/19 10/11/19 10/11/19 05:41 06:23 06:23 WBC RBC Hgb Hct MCHC RDW Plt Count Lymph % (Auto) [place] % (Auto) Lymph # [place] # Seg Neutrophils % Seg Neuts % (Manual) Lymphocytes % (Manual) Seg Neutrophils # Seg Neutrophils # Man Lymphocytes # (Manual) Monocytes # (Manual) POC ABG pH ABG pH POC ABG pCO2 POC ABG pO2 ABG pO2 ABG HCO3 ABG Base Excess ABG Hemoglobin Oxyhemoglobin Sodium 134 L Potassium Chloride 96.3 L Carbon Dioxide BUN 37 H Creatinine Glucose 58 L POC Glucose Calcium Phosphorus 4.90 H Magnesium Direct Bilirubin AST Alkaline Phosphatase C-Reactive Protein Serum Total Protein Total Protein Albumin Prealbumin Qlers-7-Rgiaxmvvo Izptq-4-Eocljjiiy Gamma Globulins PEP Interpretation Triglycerides Urine pH Urine Creatinine 118.2 H 116.8 H Urine Total Protein 105 H 104 H Vancomycin Trough Digoxin Crossmatch 10/11/19 10/12/19 10/12/19 09:00 06:09 06:09 WBC 13.8 H RBC 3.39 L Hgb 10.2 L Hct 30.9 L MCHC RDW 15.5 H Plt Count 459 H Lymph % (Auto) [place] % (Auto) Lymph # [place] # Seg Neutrophils % Seg Neuts % (Manual) Lymphocytes % (Manual) Seg Neutrophils # Seg Neutrophils # Man Lymphocytes # (Manual) Monocytes # (Manual) POC ABG pH ABG pH POC ABG pCO2 POC ABG pO2 ABG pO2 ABG HCO3 ABG Base Excess ABG Hemoglobin Oxyhemoglobin Sodium 131 L Potassium Chloride 96.2 L Carbon Dioxide 21 L BUN 43 H Creatinine Glucose 72 L POC Glucose Calcium Phosphorus Magnesium Direct Bilirubin AST Alkaline Phosphatase C-Reactive Protein Serum Total Protein 5.2 L Total Protein Albumin 1.9 L Prealbumin Hvyhq-5-Ghzpwnfxx 0.9 H Dxvhv-0-Ltxdppqff 1.0 H Gamma Globulins 0.7 L PEP Interpretation see below H Triglycerides Urine pH Urine Creatinine Urine Total Protein Vancomycin Trough Digoxin Crossmatch 10/12/19 10/12/19 10/12/19 08:20 09:30 09:30 WBC RBC Hgb Hct MCHC RDW Plt Count Lymph % (Auto) [place] % (Auto) Lymph # [place] # Seg Neutrophils % Seg Neuts % (Manual) Lymphocytes % (Manual) Seg Neutrophils # Seg Neutrophils # Man Lymphocytes # (Manual) Monocytes # (Manual) POC ABG pH ABG pH POC ABG pCO2 POC ABG pO2 63 L ABG pO2 ABG HCO3 ABG Base Excess ABG Hemoglobin Oxyhemoglobin Sodium Potassium Chloride Carbon Dioxide BUN Creatinine Glucose POC Glucose Calcium Phosphorus Magnesium 2.50 H Direct Bilirubin 0.3 H AST Alkaline Phosphatase C-Reactive Protein Serum Total Protein Total Protein 5.1 L Albumin 2.2 L Prealbumin Mhrtp-4-Gepzomyws Hpekf-0-Hzqlmvtbu Gamma Globulins PEP Interpretation Triglycerides Urine pH Urine Creatinine Urine Total Protein Vancomycin Trough Digoxin Crossmatch 10/13/19 10/13/19 10/13/19 04:20 04:20 13:20 WBC 15.7 H RBC 3.64 L Hgb 10.9 L Hct 33.1 L MCHC RDW 15.8 H Plt Count 488 H Lymph % (Auto) [place] % (Auto) Lymph # [place] # Seg Neutrophils % Seg Neuts % (Manual) Lymphocytes % (Manual) Seg Neutrophils # Seg Neutrophils # Man Lymphocytes # (Manual) Monocytes # (Manual) POC ABG pH ABG pH POC ABG pCO2 POC ABG pO2 ABG pO2 ABG HCO3 ABG Base Excess ABG Hemoglobin Oxyhemoglobin Sodium Potassium Chloride Carbon Dioxide BUN 28 H Creatinine Glucose POC Glucose Calcium Phosphorus Magnesium Direct Bilirubin AST Alkaline Phosphatase C-Reactive Protein Serum Total Protein Total Protein Albumin Prealbumin Smnoi-3-Qgglrytqp Aysdn-3-Hiajstdxm Gamma Globulins PEP Interpretation Triglycerides Urine pH Urine Creatinine Urine Total Protein Vancomycin Trough Digoxin Crossmatch See Detail 10/13/19 10/13/19 10/14/19 18:24 20:05 04:47 WBC 24.2 H RBC Hgb 10.9 L Hct 34.2 L MCHC RDW 17.0 H Plt Count 442 H Lymph % (Auto) [place] % (Auto) Lymph # [place] # Seg Neutrophils % Seg Neuts % (Manual) Lymphocytes % (Manual) Seg Neutrophils # Seg Neutrophils # Man Lymphocytes # (Manual) Monocytes # (Manual) POC ABG pH ABG pH 7.180 L* 7.278 L POC ABG pCO2 POC ABG pO2 ABG pO2 130.7 H ABG HCO3 ABG Base Excess -6.5 L -6.5 L ABG Hemoglobin 12.2 L 12.3 L Oxyhemoglobin 92.9 L Sodium Potassium Chloride Carbon Dioxide BUN Creatinine Glucose POC Glucose Calcium Phosphorus Magnesium Direct Bilirubin AST Alkaline Phosphatase C-Reactive Protein Serum Total Protein Total Protein Albumin Prealbumin Hcmma-2-Dlezxvzyo Ynjyp-8-Iejpmplvm Gamma Globulins PEP Interpretation Triglycerides Urine pH Urine Creatinine Urine Total Protein Vancomycin Trough Digoxin Crossmatch 10/14/19 10/14/19 10/14/19 04:47 05:40 10:14 WBC RBC Hgb Hct MCHC RDW Plt Count Lymph % (Auto) [place] % (Auto) Lymph # [place] # Seg Neutrophils % Seg Neuts % (Manual) Lymphocytes % (Manual) Seg Neutrophils # Seg Neutrophils # Man Lymphocytes # (Manual) Monocytes # (Manual) POC ABG pH ABG pH POC ABG pCO2 POC ABG pO2 ABG pO2 76.3 L ABG HCO3 19.1 L ABG Base Excess -5.8 L ABG Hemoglobin 10.9 L Oxyhemoglobin 93.4 L Sodium Potassium 5.1 H D Chloride 109.2 H Carbon Dioxide 17 L BUN 38 H Creatinine 1.8 H D Glucose 104 H POC Glucose Calcium 7.4 L Phosphorus 5.60 H Magnesium Direct Bilirubin AST Alkaline Phosphatase C-Reactive Protein Serum Total Protein Total Protein Albumin Prealbumin Treda-6-Fpbqvduax Thnnk-9-Vshgocbru Gamma Globulins PEP Interpretation Triglycerides Urine pH Urine Creatinine Urine Total Protein Vancomycin Trough Digoxin Crossmatch 10/14/19 10/15/19 10/15/19 23:46 04:32 04:32 WBC 15.5 H RBC 2.89 L Hgb 8.8 L Hct 27.3 L D MCHC RDW 16.6 H Plt Count Lymph % (Auto) [place] % (Auto) Lymph # [place] # Seg Neutrophils % Seg Neuts % (Manual) Lymphocytes % (Manual) Seg Neutrophils # Seg Neutrophils # Man Lymphocytes # (Manual) Monocytes # (Manual) POC ABG pH ABG pH POC ABG pCO2 POC ABG pO2 ABG pO2 ABG HCO3 ABG Base Excess ABG Hemoglobin Oxyhemoglobin Sodium 147 H Potassium Chloride 114.0 H Carbon Dioxide 19 L BUN 42 H Creatinine Glucose 112 H POC Glucose 113 H Calcium 7.3 L Phosphorus Magnesium Direct Bilirubin AST 72 H Alkaline Phosphatase C-Reactive Protein 30.60 H Serum Total Protein Total Protein 4.0 L D Albumin 1.7 L Prealbumin 0.030 L Lycso-0-Ekmsuasdi Qpwnc-2-Iqbhlvhgs Gamma Globulins PEP Interpretation Triglycerides Urine pH Urine Creatinine Urine Total Protein Vancomycin Trough Digoxin Crossmatch 10/15/19 10/15/19 10/15/19 05:30 12:08 17:23 WBC RBC Hgb Hct MCHC RDW Plt Count Lymph % (Auto) [place] % (Auto) Lymph # [place] # Seg Neutrophils % Seg Neuts % (Manual) Lymphocytes % (Manual) Seg Neutrophils # Seg Neutrophils # Man Lymphocytes # (Manual) Monocytes # (Manual) POC ABG pH ABG pH 7.296 L POC ABG pCO2 POC ABG pO2 ABG pO2 114.7 H ABG HCO3 ABG Base Excess -3.7 L ABG Hemoglobin 8.9 L Oxyhemoglobin Sodium Potassium Chloride Carbon Dioxide BUN Creatinine Glucose POC Glucose 106 H 106 H Calcium Phosphorus Magnesium Direct Bilirubin AST Alkaline Phosphatase C-Reactive Protein Serum Total Protein Total Protein Albumin Prealbumin Janpu-5-Dvganztwt Nymtx-3-Bqyssuvqs Gamma Globulins PEP Interpretation Triglycerides Urine pH Urine Creatinine Urine Total Protein Vancomycin Trough Digoxin Crossmatch 10/16/19 10/16/19 10/16/19 00:07 04:44 05:24 WBC RBC Hgb Hct MCHC RDW Plt Count Lymph % (Auto) [place] % (Auto) Lymph # [place] # Seg Neutrophils % Seg Neuts % (Manual) Lymphocytes % (Manual) Seg Neutrophils # Seg Neutrophils # Man Lymphocytes # (Manual) Monocytes # (Manual) POC ABG pH ABG pH POC ABG pCO2 POC ABG pO2 ABG pO2 ABG HCO3 ABG Base Excess ABG Hemoglobin Oxyhemoglobin Sodium 150 H Potassium Chloride 115.8 H Carbon Dioxide BUN 35 H Creatinine Glucose 129 H POC Glucose 119 H 129 H Calcium 7.3 L Phosphorus 1.80 L D Magnesium Direct Bilirubin AST Alkaline Phosphatase C-Reactive Protein Serum Total Protein Total Protein Albumin Prealbumin Llkyv-0-Kypbiubbk Dbeff-1-Rwquqidyp Gamma Globulins PEP Interpretation Triglycerides Urine pH Urine Creatinine Urine Total Protein Vancomycin Trough Digoxin Crossmatch 10/16/19 10/16/19 10/16/19 06:53 09:20 11:58 WBC 14.6 H RBC 2.70 L Hgb 8.1 L Hct 25.2 L MCHC RDW 16.7 H Plt Count Lymph % (Auto) [place] % (Auto) Lymph # [place] # Seg Neutrophils % Seg Neuts % (Manual) 79.0 H Lymphocytes % (Manual) 4.0 L Seg Neutrophils # Seg Neutrophils # Man 11.5 H Lymphocytes # (Manual) 0.6 L Monocytes # (Manual) POC ABG pH ABG pH POC ABG pCO2 47.0 H POC ABG pO2 ABG pO2 ABG HCO3 ABG Base Excess ABG Hemoglobin Oxyhemoglobin Sodium Potassium Chloride Carbon Dioxide BUN Creatinine Glucose POC Glucose Calcium Phosphorus Magnesium Direct Bilirubin AST Alkaline Phosphatase C-Reactive Protein Serum Total Protein Total Protein Albumin Prealbumin Vgskc-4-Cticorlym Ohhvt-7-Qlqdvexqw Gamma Globulins PEP Interpretation Triglycerides Urine pH Urine Creatinine Urine Total Protein Vancomycin Trough Digoxin Crossmatch See Detail 10/16/19 10/16/19 10/16/19 15:23 17:50 23:58 WBC RBC Hgb Hct MCHC RDW Plt Count Lymph % (Auto) [place] % (Auto) Lymph # [place] # Seg Neutrophils % Seg Neuts % (Manual) Lymphocytes % (Manual) Seg Neutrophils # Seg Neutrophils # Man Lymphocytes # (Manual) Monocytes # (Manual) POC ABG pH ABG pH POC ABG pCO2 POC ABG pO2 ABG pO2 ABG HCO3 ABG Base Excess ABG Hemoglobin Oxyhemoglobin Sodium Potassium Chloride Carbon Dioxide BUN Creatinine Glucose POC Glucose 221 H 201 H 179 H Calcium Phosphorus Magnesium Direct Bilirubin AST Alkaline Phosphatase C-Reactive Protein Serum Total Protein Total Protein Albumin Prealbumin Tihik-6-Oolloprke Mqxgk-7-Aevzpwnwp Gamma Globulins PEP Interpretation Triglycerides Urine pH Urine Creatinine Urine Total Protein Vancomycin Trough Digoxin Crossmatch 10/17/19 10/17/19 10/17/19 04:08 04:08 05:41 WBC 22.3 H RBC 3.35 L Hgb 10.0 L Hct 31.2 L D MCHC RDW 16.1 H Plt Count Lymph % (Auto) [place] % (Auto) Lymph # [place] # Seg Neutrophils % Seg Neuts % (Manual) Lymphocytes % (Manual) Seg Neutrophils # Seg Neutrophils # Man Lymphocytes # (Manual) Monocytes # (Manual) POC ABG pH 7.310 L ABG pH POC ABG pCO2 52.8 H POC ABG pO2 70 L ABG pO2 ABG HCO3 ABG Base Excess ABG Hemoglobin Oxyhemoglobin Sodium 147 H Potassium Chloride 114.9 H Carbon Dioxide BUN 36 H Creatinine Glucose 165 H POC Glucose Calcium 6.9 L Phosphorus 2.20 L D Magnesium Direct Bilirubin AST Alkaline Phosphatase C-Reactive Protein Serum Total Protein Total Protein Albumin Prealbumin Gqwub-8-Vqkbetagt Kgist-2-Vtocjksqk Gamma Globulins PEP Interpretation Triglycerides Urine pH Urine Creatinine Urine Total Protein Vancomycin Trough Digoxin Crossmatch 10/17/19 10/17/19 10/17/19 05:42 11:33 18:17 WBC RBC Hgb Hct MCHC RDW Plt Count Lymph % (Auto) [place] % (Auto) Lymph # [place] # Seg Neutrophils % Seg Neuts % (Manual) Lymphocytes % (Manual) Seg Neutrophils # Seg Neutrophils # Man Lymphocytes # (Manual) Monocytes # (Manual) POC ABG pH ABG pH POC ABG pCO2 POC ABG pO2 ABG pO2 ABG HCO3 ABG Base Excess ABG Hemoglobin Oxyhemoglobin Sodium Potassium Chloride Carbon Dioxide BUN Creatinine Glucose POC Glucose 149 H 154 H 163 H Calcium Phosphorus Magnesium Direct Bilirubin AST Alkaline Phosphatase C-Reactive Protein Serum Total Protein Total Protein Albumin Prealbumin Gfuri-6-Optimsoyi Wegby-0-Rozyqbgat Gamma Globulins PEP Interpretation Triglycerides Urine pH Urine Creatinine Urine Total Protein Vancomycin Trough Digoxin Crossmatch 10/17/19 10/18/19 10/18/19 23:34 03:29 04:50 WBC RBC Hgb Hct MCHC RDW Plt Count Lymph % (Auto) [place] % (Auto) Lymph # [place] # Seg Neutrophils % Seg Neuts % (Manual) Lymphocytes % (Manual) Seg Neutrophils # Seg Neutrophils # Man Lymphocytes # (Manual) Monocytes # (Manual) POC ABG pH ABG pH POC ABG pCO2 POC ABG pO2 ABG pO2 78.8 L ABG HCO3 ABG Base Excess ABG Hemoglobin 8.8 L Oxyhemoglobin Sodium Potassium Chloride 111.8 H Carbon Dioxide BUN 27 H Creatinine 0.6 L Glucose 140 H POC Glucose 135 H Calcium 7.1 L Phosphorus 1.80 L Magnesium Direct Bilirubin AST Alkaline Phosphatase C-Reactive Protein Serum Total Protein Total Protein Albumin Prealbumin Qdjfj-0-Kvqaszzjk Gegao-7-Bptpmwrti Gamma Globulins PEP Interpretation Triglycerides Urine pH Urine Creatinine Urine Total Protein Vancomycin Trough Digoxin Crossmatch 10/18/19 10/18/19 10/18/19 05:45 11:19 18:26 WBC RBC Hgb Hct MCHC RDW Plt Count Lymph % (Auto) [place] % (Auto) Lymph # [place] # Seg Neutrophils % Seg Neuts % (Manual) Lymphocytes % (Manual) Seg Neutrophils # Seg Neutrophils # Man Lymphocytes # (Manual) Monocytes # (Manual) POC ABG pH ABG pH POC ABG pCO2 POC ABG pO2 ABG pO2 ABG HCO3 ABG Base Excess ABG Hemoglobin Oxyhemoglobin Sodium Potassium Chloride Carbon Dioxide BUN Creatinine Glucose POC Glucose 145 H 152 H 125 H Calcium Phosphorus Magnesium Direct Bilirubin AST Alkaline Phosphatase C-Reactive Protein Serum Total Protein Total Protein Albumin Prealbumin Pivac-3-Gauihtfyo Slogw-7-Sxdlypfmd Gamma Globulins PEP Interpretation Triglycerides Urine pH Urine Creatinine Urine Total Protein Vancomycin Trough Digoxin Crossmatch 10/18/19 10/19/19 10/19/19 23:27 04:21 04:21 WBC RBC Hgb Hct MCHC RDW Plt Count Lymph % (Auto) [place] % (Auto) Lymph # [place] # Seg Neutrophils % Seg Neuts % (Manual) Lymphocytes % (Manual) Seg Neutrophils # Seg Neutrophils # Man Lymphocytes # (Manual) Monocytes # (Manual) POC ABG pH ABG pH POC ABG pCO2 POC ABG pO2 ABG pO2 ABG HCO3 ABG Base Excess ABG Hemoglobin Oxyhemoglobin Sodium Potassium Chloride 108.4 H Carbon Dioxide BUN 22 H Creatinine 0.5 L Glucose 123 H POC Glucose 127 H Calcium 7.4 L Phosphorus 1.80 L Magnesium Direct Bilirubin AST Alkaline Phosphatase C-Reactive Protein Serum Total Protein Total Protein Albumin Prealbumin Ogpdm-2-Yhvqkrcok Sovuj-9-Icvhxlakk Gamma Globulins PEP Interpretation Triglycerides Urine pH Urine Creatinine Urine Total Protein Vancomycin Trough Digoxin 0.7 L Crossmatch 10/19/19 10/19/19 10/19/19 05:00 05:35 11:26 WBC RBC Hgb Hct MCHC RDW Plt Count Lymph % (Auto) [place] % (Auto) Lymph # [place] # Seg Neutrophils % Seg Neuts % (Manual) Lymphocytes % (Manual) Seg Neutrophils # Seg Neutrophils # Man Lymphocytes # (Manual) Monocytes # (Manual) POC ABG pH ABG pH 7.456 H POC ABG pCO2 POC ABG pO2 ABG pO2 78.8 L ABG HCO3 ABG Base Excess ABG Hemoglobin 5.6 L Oxyhemoglobin Sodium Potassium Chloride Carbon Dioxide BUN Creatinine Glucose POC Glucose 124 H 111 H Calcium Phosphorus Magnesium Direct Bilirubin AST Alkaline Phosphatase C-Reactive Protein Serum Total Protein Total Protein Albumin Prealbumin Bjmjq-4-Emmzvxebm Okgwx-8-Kkleuyfyh Gamma Globulins PEP Interpretation Triglycerides Urine pH Urine Creatinine Urine Total Protein Vancomycin Trough Digoxin Crossmatch 10/19/19 10/20/19 10/20/19 23:23 04:50 05:17 WBC RBC Hgb Hct MCHC RDW Plt Count Lymph % (Auto) [place] % (Auto) Lymph # [place] # Seg Neutrophils % Seg Neuts % (Manual) Lymphocytes % (Manual) Seg Neutrophils # Seg Neutrophils # Man Lymphocytes # (Manual) Monocytes # (Manual) POC ABG pH ABG pH POC ABG pCO2 POC ABG pO2 ABG pO2 ABG HCO3 ABG Base Excess ABG Hemoglobin Oxyhemoglobin Sodium Potassium Chloride 108.1 H Carbon Dioxide BUN Creatinine 0.4 L Glucose 134 H POC Glucose 129 H 123 H Calcium 7.1 L Phosphorus Magnesium Direct Bilirubin AST Alkaline Phosphatase C-Reactive Protein Serum Total Protein Total Protein Albumin Prealbumin Ewqjo-1-Xheyzfkji Mumlv-1-Yuikuuvsg Gamma Globulins PEP Interpretation Triglycerides Urine pH Urine Creatinine Urine Total Protein Vancomycin Trough Digoxin Crossmatch 10/20/19 10/20/19 10/21/19 11:40 19:06 05:08 WBC RBC Hgb Hct MCHC RDW Plt Count Lymph % (Auto) [place] % (Auto) Lymph # [place] # Seg Neutrophils % Seg Neuts % (Manual) Lymphocytes % (Manual) Seg Neutrophils # Seg Neutrophils # Man Lymphocytes # (Manual) Monocytes # (Manual) POC ABG pH ABG pH POC ABG pCO2 POC ABG pO2 ABG pO2 ABG HCO3 ABG Base Excess ABG Hemoglobin Oxyhemoglobin Sodium Potassium Chloride Carbon Dioxide BUN Creatinine Glucose POC Glucose 139 H 117 H 131 H Calcium Phosphorus Magnesium Direct Bilirubin AST Alkaline Phosphatase C-Reactive Protein Serum Total Protein Total Protein Albumin Prealbumin Txwjc-0-Zqxomtxmi Vcued-5-Mzxypjctp Gamma Globulins PEP Interpretation Triglycerides Urine pH Urine Creatinine Urine Total Protein Vancomycin Trough Digoxin Crossmatch 10/21/19 10/21/19 10/21/19 05:30 12:04 17:31 WBC RBC Hgb Hct MCHC RDW Plt Count Lymph % (Auto) [place] % (Auto) Lymph # [place] # Seg Neutrophils % Seg Neuts % (Manual) Lymphocytes % (Manual) Seg Neutrophils # Seg Neutrophils # Man Lymphocytes # (Manual) Monocytes # (Manual) POC ABG pH ABG pH POC ABG pCO2 POC ABG pO2 ABG pO2 ABG HCO3 ABG Base Excess ABG Hemoglobin Oxyhemoglobin Sodium Potassium Chloride 107.8 H Carbon Dioxide BUN Creatinine 0.5 L Glucose 119 H POC Glucose 119 H 110 H Calcium 7.6 L Phosphorus Magnesium Direct Bilirubin AST Alkaline Phosphatase C-Reactive Protein Serum Total Protein Total Protein Albumin Prealbumin Ntuam-7-Kmbctlolx Qapnv-1-Kvqpaitpv Gamma Globulins PEP Interpretation Triglycerides Urine pH Urine Creatinine Urine Total Protein Vancomycin Trough Digoxin Crossmatch 10/22/19 10/22/19 10/22/19 05:14 05:37 12:07 WBC RBC Hgb Hct MCHC RDW Plt Count Lymph % (Auto) [place] % (Auto) Lymph # [place] # Seg Neutrophils % Seg Neuts % (Manual) Lymphocytes % (Manual) Seg Neutrophils # Seg Neutrophils # Man Lymphocytes # (Manual) Monocytes # (Manual) POC ABG pH ABG pH POC ABG pCO2 POC ABG pO2 ABG pO2 ABG HCO3 ABG Base Excess ABG Hemoglobin Oxyhemoglobin Sodium Potassium Chloride Carbon Dioxide BUN Creatinine 0.5 L Glucose 116 H POC Glucose 110 H 126 H Calcium 7.7 L Phosphorus Magnesium Direct Bilirubin AST Alkaline Phosphatase C-Reactive Protein Serum Total Protein Total Protein Albumin Prealbumin Dnalo-7-Dfrjapknd Ffdjw-7-Bthytjcxe Gamma Globulins PEP Interpretation Triglycerides Urine pH Urine Creatinine Urine Total Protein Vancomycin Trough Digoxin Crossmatch 10/22/19 10/22/19 10/23/19 18:36 23:19 04:39 WBC RBC Hgb Hct MCHC RDW Plt Count Lymph % (Auto) [place] % (Auto) Lymph # [place] # Seg Neutrophils % Seg Neuts % (Manual) Lymphocytes % (Manual) Seg Neutrophils # Seg Neutrophils # Man Lymphocytes # (Manual) Monocytes # (Manual) POC ABG pH ABG pH POC ABG pCO2 POC ABG pO2 ABG pO2 ABG HCO3 ABG Base Excess ABG Hemoglobin Oxyhemoglobin Sodium Potassium Chloride Carbon Dioxide BUN Creatinine Glucose POC Glucose 120 H 127 H 112 H Calcium Phosphorus Magnesium Direct Bilirubin AST Alkaline Phosphatase C-Reactive Protein Serum Total Protein Total Protein Albumin Prealbumin Kxdza-4-Utaashzrt Trrru-2-Trnbpmlxy Gamma Globulins PEP Interpretation Triglycerides Urine pH Urine Creatinine Urine Total Protein Vancomycin Trough Digoxin Crossmatch 10/23/19 10/23/19 10/23/19 04:47 05:15 10:44 WBC 18.3 H RBC 2.33 L Hgb 7.0 L Hct 21.5 L MCHC RDW 16.2 H Plt Count Lymph % (Auto) 4.9 L [place] % (Auto) 8.1 H Lymph # 0.9 L [place] # 1.5 H Seg Neutrophils % 86.7 H Seg Neuts % (Manual) Lymphocytes % (Manual) Seg Neutrophils # 15.9 H Seg Neutrophils # Man Lymphocytes # (Manual) Monocytes # (Manual) POC ABG pH ABG pH POC ABG pCO2 POC ABG pO2 ABG pO2 68.9 L ABG HCO3 28.7 H ABG Base Excess 3.4 H ABG Hemoglobin 6.6 L Oxyhemoglobin 94.1 L Sodium Potassium Chloride Carbon Dioxide BUN Creatinine 0.5 L Glucose 165 H POC Glucose Calcium 7.4 L Phosphorus Magnesium Direct Bilirubin AST Alkaline Phosphatase C-Reactive Protein Serum Total Protein Total Protein Albumin Prealbumin Tnstg-5-Hjqhzjbuv Hwcey-3-Thqrdnqub Gamma Globulins PEP Interpretation Triglycerides Urine pH Urine Creatinine Urine Total Protein Vancomycin Trough Digoxin Crossmatch 10/23/19 10/23/19 10/23/19 10:44 11:46 11:50 WBC RBC Hgb Hct MCHC RDW Plt Count Lymph % (Auto) [place] % (Auto) Lymph # [place] # Seg Neutrophils % Seg Neuts % (Manual) Lymphocytes % (Manual) Seg Neutrophils # Seg Neutrophils # Man Lymphocytes # (Manual) Monocytes # (Manual) POC ABG pH ABG pH POC ABG pCO2 POC ABG pO2 ABG pO2 ABG HCO3 ABG Base Excess ABG Hemoglobin Oxyhemoglobin Sodium Potassium Chloride Carbon Dioxide BUN Creatinine Glucose POC Glucose 138 H Calcium Phosphorus Magnesium Direct Bilirubin 0.7 H AST Alkaline Phosphatase C-Reactive Protein Serum Total Protein Total Protein 4.5 L Albumin 1.2 L Prealbumin Nhlpf-4-Szaahfdrr Ihqfb-9-Hqvoveupk Gamma Globulins PEP Interpretation Triglycerides Urine pH Urine Creatinine Urine Total Protein Vancomycin Trough Digoxin Crossmatch See Detail 10/23/19 10/24/19 10/24/19 17:53 00:07 05:05 WBC RBC Hgb Hct MCHC RDW Plt Count Lymph % (Auto) [place] % (Auto) Lymph # [place] # Seg Neutrophils % Seg Neuts % (Manual) Lymphocytes % (Manual) Seg Neutrophils # Seg Neutrophils # Man Lymphocytes # (Manual) Monocytes # (Manual) POC ABG pH ABG pH POC ABG pCO2 POC ABG pO2 ABG pO2 ABG HCO3 ABG Base Excess ABG Hemoglobin Oxyhemoglobin Sodium Potassium 3.5 L Chloride Carbon Dioxide BUN Creatinine 0.5 L Glucose 116 H POC Glucose 137 H 110 H Calcium 8.0 L Phosphorus Magnesium Direct Bilirubin AST Alkaline Phosphatase C-Reactive Protein Serum Total Protein Total Protein Albumin Prealbumin Fejoi-3-Tjbexuotj Njiai-3-Tmxazbulu Gamma Globulins PEP Interpretation Triglycerides Urine pH Urine Creatinine Urine Total Protein Vancomycin Trough Digoxin Crossmatch 10/24/19 10/24/19 10/24/19 05:05 11:56 13:00 WBC 13.0 H RBC 2.73 L Hgb 8.0 L Hct 24.2 L MCHC RDW 17.9 H Plt Count Lymph % (Auto) 7.0 L [place] % (Auto) 9.5 H Lymph # 0.9 L [place] # 1.2 H Seg Neutrophils % 82.7 H Seg Neuts % (Manual) Lymphocytes % (Manual) Seg Neutrophils # 10.7 H Seg Neutrophils # Man Lymphocytes # (Manual) Monocytes # (Manual) POC ABG pH ABG pH POC ABG pCO2 POC ABG pO2 ABG pO2 ABG HCO3 ABG Base Excess ABG Hemoglobin Oxyhemoglobin Sodium Potassium Chloride Carbon Dioxide BUN Creatinine Glucose POC Glucose 159 H Calcium Phosphorus Magnesium Direct Bilirubin AST Alkaline Phosphatase C-Reactive Protein Serum Total Protein Total Protein Albumin Prealbumin Gdxsu-6-Xvzkdegaf Uftcm-2-Hzktzzpet Gamma Globulins PEP Interpretation Triglycerides 216 H Urine pH Urine Creatinine Urine Total Protein Vancomycin Trough Digoxin Crossmatch 10/24/19 10/24/19 10/25/19 17:42 23:45 04:19 WBC RBC Hgb Hct MCHC RDW Plt Count Lymph % (Auto) [place] % (Auto) Lymph # [place] # Seg Neutrophils % Seg Neuts % (Manual) Lymphocytes % (Manual) Seg Neutrophils # Seg Neutrophils # Man Lymphocytes # (Manual) Monocytes # (Manual) POC ABG pH ABG pH POC ABG pCO2 POC ABG pO2 ABG pO2 ABG HCO3 ABG Base Excess ABG Hemoglobin Oxyhemoglobin Sodium 147 H Potassium Chloride Carbon Dioxide 33 H BUN Creatinine 0.5 L Glucose 111 H POC Glucose 120 H 116 H Calcium Phosphorus Magnesium Direct Bilirubin AST Alkaline Phosphatase C-Reactive Protein Serum Total Protein Total Protein 5.7 L D Albumin 2.5 L Prealbumin Bwvlw-9-Emzxodvmd Qkenp-9-Nhjkekttc Gamma Globulins PEP Interpretation Triglycerides 230 H Urine pH Urine Creatinine Urine Total Protein Vancomycin Trough Digoxin Crossmatch 10/25/19 10/25/19 10/25/19 04:19 05:31 12:20 WBC RBC 2.69 L Hgb 8.1 L Hct 23.9 L MCHC RDW 17.3 H Plt Count Lymph % (Auto) [place] % (Auto) Lymph # [place] # Seg Neutrophils % Seg Neuts % (Manual) Lymphocytes % (Manual) Seg Neutrophils # Seg Neutrophils # Man Lymphocytes # (Manual) Monocytes # (Manual) POC ABG pH ABG pH POC ABG pCO2 POC ABG pO2 ABG pO2 ABG HCO3 ABG Base Excess ABG Hemoglobin Oxyhemoglobin Sodium Potassium Chloride Carbon Dioxide BUN Creatinine Glucose POC Glucose 126 H 114 H Calcium Phosphorus Magnesium Direct Bilirubin AST Alkaline Phosphatase C-Reactive Protein Serum Total Protein Total Protein Albumin Prealbumin Gcdwj-2-Vhzyjdntq Zzhhl-2-Uoaymcnot Gamma Globulins PEP Interpretation Triglycerides Urine pH Urine Creatinine Urine Total Protein Vancomycin Trough Digoxin Crossmatch 10/25/19 10/25/19 10/26/19 18:30 23:09 06:15 WBC RBC Hgb Hct MCHC RDW Plt Count Lymph % (Auto) [place] % (Auto) Lymph # [place] # Seg Neutrophils % Seg Neuts % (Manual) Lymphocytes % (Manual) Seg Neutrophils # Seg Neutrophils # Man Lymphocytes # (Manual) Monocytes # (Manual) POC ABG pH ABG pH POC ABG pCO2 POC ABG pO2 ABG pO2 ABG HCO3 ABG Base Excess ABG Hemoglobin Oxyhemoglobin Sodium Potassium 3.5 L Chloride Carbon Dioxide BUN Creatinine 0.5 L Glucose 112 H POC Glucose 121 H 107 H Calcium 8.3 L Phosphorus Magnesium Direct Bilirubin AST Alkaline Phosphatase 148 H C-Reactive Protein Serum Total Protein Total Protein 5.9 L Albumin 2.4 L Prealbumin Pwpjl-0-Ujqcsncxo Ijcdy-3-Jrycgwqyc Gamma Globulins PEP Interpretation Triglycerides Urine pH Urine Creatinine Urine Total Protein Vancomycin Trough Digoxin Crossmatch 10/26/19 10/26/19 10/26/19 06:15 12:21 17:35 WBC RBC Hgb Hct MCHC RDW Plt Count Lymph % (Auto) [place] % (Auto) Lymph # [place] # Seg Neutrophils % Seg Neuts % (Manual) Lymphocytes % (Manual) Seg Neutrophils # Seg Neutrophils # Man Lymphocytes # (Manual) Monocytes # (Manual) POC ABG pH ABG pH POC ABG pCO2 POC ABG pO2 ABG pO2 ABG HCO3 ABG Base Excess ABG Hemoglobin Oxyhemoglobin Sodium Potassium Chloride Carbon Dioxide BUN Creatinine Glucose POC Glucose 134 H 141 H Calcium Phosphorus Magnesium Direct Bilirubin AST Alkaline Phosphatase C-Reactive Protein Serum Total Protein Total Protein Albumin Prealbumin Rifbj-6-Qzbhopjip Wdhus-2-Piuidoueg Gamma Globulins PEP Interpretation Triglycerides 185 H Urine pH Urine Creatinine Urine Total Protein Vancomycin Trough Digoxin Crossmatch 10/26/19 10/27/19 10/27/19 Unknown 04:30 11:33 WBC RBC Hgb Hct MCHC RDW Plt Count Lymph % (Auto) [place] % (Auto) Lymph # [place] # Seg Neutrophils % Seg Neuts % (Manual) Lymphocytes % (Manual) Seg Neutrophils # Seg Neutrophils # Man Lymphocytes # (Manual) Monocytes # (Manual) POC ABG pH ABG pH POC ABG pCO2 POC ABG pO2 ABG pO2 ABG HCO3 ABG Base Excess ABG Hemoglobin Oxyhemoglobin Sodium Potassium 3.2 L Chloride Carbon Dioxide BUN 23 H Creatinine 0.6 L Glucose 130 H POC Glucose 131 H Calcium 7.9 L Phosphorus Magnesium Direct Bilirubin AST Alkaline Phosphatase C-Reactive Protein Serum Total Protein Total Protein Albumin Prealbumin Roemk-5-Yintpwwjx Bzzme-3-Hecdtqagr Gamma Globulins PEP Interpretation Triglycerides Urine pH 9.0 H Urine Creatinine Urine Total Protein Vancomycin Trough Digoxin Crossmatch 10/27/19 10/28/19 10/28/19 17:45 05:25 05:49 WBC RBC 2.85 L Hgb 8.3 L Hct 26.8 L MCHC 31 L RDW 17.4 H Plt Count Lymph % (Auto) 8.9 L [place] % (Auto) 14.3 H Lymph # 0.8 L [place] # 1.3 H Seg Neutrophils % 76.5 H Seg Neuts % (Manual) Lymphocytes % (Manual) Seg Neutrophils # Seg Neutrophils # Man Lymphocytes # (Manual) Monocytes # (Manual) POC ABG pH ABG pH POC ABG pCO2 POC ABG pO2 ABG pO2 ABG HCO3 ABG Base Excess ABG Hemoglobin Oxyhemoglobin Sodium Potassium Chloride Carbon Dioxide BUN Creatinine Glucose POC Glucose 121 H 120 H Calcium Phosphorus Magnesium Direct Bilirubin AST Alkaline Phosphatase C-Reactive Protein Serum Total Protein Total Protein Albumin Prealbumin Ejdpz-7-Ecnpfwtio Muapr-1-Zfokgpipb Gamma Globulins PEP Interpretation Triglycerides Urine pH Urine Creatinine Urine Total Protein Vancomycin Trough Digoxin Crossmatch 10/28/19 10/28/19 10/28/19 07:19 12:07 18:21 WBC RBC Hgb Hct MCHC RDW Plt Count Lymph % (Auto) [place] % (Auto) Lymph # [place] # Seg Neutrophils % Seg Neuts % (Manual) Lymphocytes % (Manual) Seg Neutrophils # Seg Neutrophils # Man Lymphocytes # (Manual) Monocytes # (Manual) POC ABG pH ABG pH POC ABG pCO2 POC ABG pO2 ABG pO2 ABG HCO3 ABG Base Excess ABG Hemoglobin Oxyhemoglobin Sodium Potassium Chloride Carbon Dioxide BUN 23 H Creatinine 0.5 L Glucose 129 H POC Glucose 127 H 130 H Calcium 8.0 L Phosphorus Magnesium Direct Bilirubin AST Alkaline Phosphatase C-Reactive Protein Serum Total Protein Total Protein Albumin Prealbumin Mwhgp-9-Kqtuqfumd Ajibs-1-Shpgthoyk Gamma Globulins PEP Interpretation Triglycerides Urine pH Urine Creatinine Urine Total Protein Vancomycin Trough Digoxin Crossmatch 10/28/19 10/29/19 10/29/19 23:30 05:30 05:30 WBC 11.2 H RBC 3.36 L Hgb 9.7 L Hct 29.4 L MCHC RDW 16.7 H Plt Count Lymph % (Auto) [place] % (Auto) 16.0 H Lymph # [place] # 1.8 H Seg Neutrophils % 70.2 H Seg Neuts % (Manual) Lymphocytes % (Manual) Seg Neutrophils # 7.9 H Seg Neutrophils # Man Lymphocytes # (Manual) Monocytes # (Manual) POC ABG pH ABG pH POC ABG pCO2 POC ABG pO2 ABG pO2 ABG HCO3 ABG Base Excess ABG Hemoglobin Oxyhemoglobin Sodium Potassium Chloride Carbon Dioxide BUN 23 H Creatinine 0.5 L Glucose POC Glucose 130 H Calcium 8.3 L Phosphorus Magnesium Direct Bilirubin AST Alkaline Phosphatase C-Reactive Protein Serum Total Protein Total Protein Albumin Prealbumin Kpgtr-7-Obsqemgql Ksswu-9-Wuukiiltd Gamma Globulins PEP Interpretation Triglycerides Urine pH Urine Creatinine Urine Total Protein Vancomycin Trough Digoxin Crossmatch 10/29/19 10/29/19 10/29/19 05:52 13:10 18:02 WBC RBC Hgb Hct MCHC RDW Plt Count Lymph % (Auto) [place] % (Auto) Lymph # [place] # Seg Neutrophils % Seg Neuts % (Manual) Lymphocytes % (Manual) Seg Neutrophils # Seg Neutrophils # Man Lymphocytes # (Manual) Monocytes # (Manual) POC ABG pH ABG pH POC ABG pCO2 POC ABG pO2 ABG pO2 ABG HCO3 ABG Base Excess ABG Hemoglobin Oxyhemoglobin Sodium Potassium Chloride Carbon Dioxide BUN Creatinine Glucose POC Glucose 111 H 140 H 140 H Calcium Phosphorus Magnesium Direct Bilirubin AST Alkaline Phosphatase C-Reactive Protein Serum Total Protein Total Protein Albumin Prealbumin Hcwim-9-Qsxnadleq Ymzxe-9-Dyrhufnsn Gamma Globulins PEP Interpretation Triglycerides Urine pH Urine Creatinine Urine Total Protein Vancomycin Trough Digoxin Crossmatch 10/29/19 10/30/19 10/30/19 23:58 01:05 05:15 WBC RBC Hgb Hct MCHC RDW Plt Count Lymph % (Auto) [place] % (Auto) Lymph # [place] # Seg Neutrophils % Seg Neuts % (Manual) Lymphocytes % (Manual) Seg Neutrophils # Seg Neutrophils # Man Lymphocytes # (Manual) Monocytes # (Manual) POC ABG pH ABG pH POC ABG pCO2 62.0 H POC ABG pO2 168 H ABG pO2 ABG HCO3 ABG Base Excess ABG Hemoglobin Oxyhemoglobin Sodium 147 H Potassium Chloride 107.8 H Carbon Dioxide BUN 26 H Creatinine 0.5 L Glucose 139 H POC Glucose 161 H Calcium Phosphorus Magnesium 2.40 H Direct Bilirubin AST Alkaline Phosphatase C-Reactive Protein Serum Total Protein Total Protein Albumin Prealbumin Uyzwv-1-Vkexyikkx Arnrf-7-Cwlwipyxp Gamma Globulins PEP Interpretation Triglycerides Urine pH Urine Creatinine Urine Total Protein Vancomycin Trough Digoxin Crossmatch 10/30/19 10/30/19 10/30/19 05:15 06:32 09:44 WBC 13.8 H RBC 3.59 L Hgb 10.1 L Hct 32.4 L MCHC 31 L RDW 17.4 H Plt Count Lymph % (Auto) 11.2 L [place] % (Auto) 13.6 H Lymph # [place] # 1.9 H Seg Neutrophils % 75.1 H Seg Neuts % (Manual) Lymphocytes % (Manual) Seg Neutrophils # 10.4 H Seg Neutrophils # Man Lymphocytes # (Manual) Monocytes # (Manual) POC ABG pH ABG pH POC ABG pCO2 51.7 H POC ABG pO2 111 H ABG pO2 ABG HCO3 ABG Base Excess ABG Hemoglobin Oxyhemoglobin Sodium Potassium Chloride Carbon Dioxide BUN Creatinine Glucose POC Glucose 141 H Calcium Phosphorus Magnesium Direct Bilirubin AST Alkaline Phosphatase C-Reactive Protein Serum Total Protein Total Protein Albumin Prealbumin Sbvyu-4-Zmjzyjsrv Viqfb-7-Ctfwlbcau Gamma Globulins PEP Interpretation Triglycerides Urine pH Urine Creatinine Urine Total Protein Vancomycin Trough Digoxin Crossmatch 10/30/19 10/31/19 10/31/19 18:10 04:18 04:18 WBC 11.7 H RBC 3.11 L Hgb 9.0 L Hct 27.9 L MCHC RDW 17.1 H Plt Count Lymph % (Auto) [place] % (Auto) Lymph # [place] # Seg Neutrophils % Seg Neuts % (Manual) Lymphocytes % (Manual) Seg Neutrophils # Seg Neutrophils # Man Lymphocytes # (Manual) Monocytes # (Manual) POC ABG pH ABG pH POC ABG pCO2 POC ABG pO2 ABG pO2 ABG HCO3 ABG Base Excess ABG Hemoglobin Oxyhemoglobin Sodium 148 H Potassium Chloride 108.7 H Carbon Dioxide BUN 37 H Creatinine 0.7 L Glucose 102 H POC Glucose 131 H Calcium Phosphorus Magnesium Direct Bilirubin AST Alkaline Phosphatase C-Reactive Protein Serum Total Protein Total Protein Albumin Prealbumin Yvdiq-7-Absdqzcpj Bfdpu-3-Acrrtgnad Gamma Globulins PEP Interpretation Triglycerides Urine pH Urine Creatinine Urine Total Protein Vancomycin Trough Digoxin Crossmatch 10/31/19 10/31/19 10/31/19 11:32 12:55 18:10 WBC RBC Hgb Hct MCHC RDW Plt Count Lymph % (Auto) [place] % (Auto) Lymph # [place] # Seg Neutrophils % Seg Neuts % (Manual) Lymphocytes % (Manual) Seg Neutrophils # Seg Neutrophils # Man Lymphocytes # (Manual) Monocytes # (Manual) POC ABG pH ABG pH POC ABG pCO2 57.9 H POC ABG pO2 135 H ABG pO2 ABG HCO3 ABG Base Excess ABG Hemoglobin Oxyhemoglobin Sodium Potassium Chloride Carbon Dioxide BUN Creatinine Glucose POC Glucose 120 H Calcium Phosphorus Magnesium Direct Bilirubin AST Alkaline Phosphatase C-Reactive Protein Serum Total Protein Total Protein Albumin Prealbumin Zokbx-0-Dnggmqpbm Fbink-5-Etbegdkmm Gamma Globulins PEP Interpretation Triglycerides Urine pH Urine Creatinine Urine Total Protein Vancomycin Trough 41.7 H Digoxin Crossmatch 10/31/19 11/01/19 11/01/19 23:08 05:30 05:30 WBC 14.6 H RBC 3.13 L Hgb 8.9 L Hct 27.7 L MCHC RDW 17.0 H Plt Count Lymph % (Auto) [place] % (Auto) Lymph # [place] # Seg Neutrophils % Seg Neuts % (Manual) Lymphocytes % (Manual) Seg Neutrophils # Seg Neutrophils # Man Lymphocytes # (Manual) Monocytes # (Manual) POC ABG pH ABG pH POC ABG pCO2 POC ABG pO2 ABG pO2 ABG HCO3 ABG Base Excess ABG Hemoglobin Oxyhemoglobin Sodium 149 H Potassium Chloride 109.0 H Carbon Dioxide BUN 26 H Creatinine 0.7 L Glucose 129 H POC Glucose 109 H Calcium Phosphorus Magnesium Direct Bilirubin AST Alkaline Phosphatase C-Reactive Protein Serum Total Protein Total Protein Albumin Prealbumin Ohbal-9-Ngxkcfnbk Rqvhy-1-Rnjqcaend Gamma Globulins PEP Interpretation Triglycerides Urine pH Urine Creatinine Urine Total Protein Vancomycin Trough Digoxin Crossmatch 11/01/19 11/01/19 11/01/19 06:09 06:10 11:52 WBC RBC Hgb Hct MCHC RDW Plt Count Lymph % (Auto) [place] % (Auto) Lymph # [place] # Seg Neutrophils % Seg Neuts % (Manual) Lymphocytes % (Manual) Seg Neutrophils # Seg Neutrophils # Man Lymphocytes # (Manual) Monocytes # (Manual) POC ABG pH ABG pH POC ABG pCO2 51.3 H POC ABG pO2 71 L ABG pO2 ABG HCO3 ABG Base Excess ABG Hemoglobin Oxyhemoglobin Sodium Potassium Chloride Carbon Dioxide BUN Creatinine Glucose POC Glucose 113 H 106 H Calcium Phosphorus Magnesium Direct Bilirubin AST Alkaline Phosphatase C-Reactive Protein Serum Total Protein Total Protein Albumin Prealbumin Ncmne-7-Lgtakgrlv Pdzzt-7-Pghzeorfo Gamma Globulins PEP Interpretation Triglycerides Urine pH Urine Creatinine Urine Total Protein Vancomycin Trough Digoxin Crossmatch 11/01/19 11/02/19 11/02/19 18:18 03:40 03:40 WBC RBC 2.36 L Hgb 7.2 L Hct 20.8 L D MCHC 35 H RDW 16.8 H Plt Count Lymph % (Auto) [place] % (Auto) Lymph # [place] # Seg Neutrophils % Seg Neuts % (Manual) Lymphocytes % (Manual) Seg Neutrophils # Seg Neutrophils # Man Lymphocytes # (Manual) Monocytes # (Manual) POC ABG pH ABG pH POC ABG pCO2 POC ABG pO2 ABG pO2 ABG HCO3 ABG Base Excess ABG Hemoglobin Oxyhemoglobin Sodium 157 H D Potassium 3.0 L D Chloride 117.2 H Carbon Dioxide BUN 23 H Creatinine 0.6 L Glucose 101 H POC Glucose 120 H Calcium 6.4 L D Phosphorus Magnesium Direct Bilirubin AST Alkaline Phosphatase C-Reactive Protein Serum Total Protein Total Protein Albumin Prealbumin Paqxd-5-Vhxuvtgjg Eqikn-1-Nrowyyvxk Gamma Globulins PEP Interpretation Triglycerides Urine pH Urine Creatinine Urine Total Protein Vancomycin Trough Digoxin Crossmatch 11/02/19 11/02/19 11/02/19 04:48 05:30 12:43 WBC RBC Hgb Hct MCHC RDW Plt Count Lymph % (Auto) [place] % (Auto) Lymph # [place] # Seg Neutrophils % Seg Neuts % (Manual) Lymphocytes % (Manual) Seg Neutrophils # Seg Neutrophils # Man Lymphocytes # (Manual) Monocytes # (Manual) POC ABG pH ABG pH POC ABG pCO2 50.1 H POC ABG pO2 74 L ABG pO2 ABG HCO3 ABG Base Excess ABG Hemoglobin Oxyhemoglobin Sodium 149 H D Potassium Chloride 110.0 H Carbon Dioxide BUN 23 H Creatinine 0.6 L Glucose POC Glucose 109 H Calcium 8.1 L D Phosphorus Magnesium 2.40 H Direct Bilirubin AST Alkaline Phosphatase C-Reactive Protein Serum Total Protein Total Protein Albumin Prealbumin Rkeeg-0-Jgmovvoqo Ozami-8-Zrkamrhfs Gamma Globulins PEP Interpretation Triglycerides Urine pH Urine Creatinine Urine Total Protein Vancomycin Trough Digoxin Crossmatch 11/03/19 11/03/19 11/03/19 03:42 03:42 04:13 WBC RBC 2.93 L Hgb 8.5 L Hct 25.8 L MCHC RDW 16.9 H Plt Count Lymph % (Auto) [place] % (Auto) Lymph # [place] # Seg Neutrophils % Seg Neuts % (Manual) Lymphocytes % (Manual) Seg Neutrophils # Seg Neutrophils # Man Lymphocytes # (Manual) Monocytes # (Manual) POC ABG pH 7.540 H ABG pH POC ABG pCO2 POC ABG pO2 51 L ABG pO2 ABG HCO3 ABG Base Excess ABG Hemoglobin Oxyhemoglobin Sodium 147 H Potassium 3.5 L D Chloride 108.6 H Carbon Dioxide BUN Creatinine 0.6 L Glucose 109 H POC Glucose Calcium 8.3 L Phosphorus Magnesium Direct Bilirubin AST Alkaline Phosphatase C-Reactive Protein Serum Total Protein Total Protein Albumin Prealbumin Hujvd-5-Ymtjvroev Qjjgq-5-Jifxwswoo Gamma Globulins PEP Interpretation Triglycerides Urine pH Urine Creatinine Urine Total Protein Vancomycin Trough Digoxin Crossmatch 11/03/19 11/03/19 11/03/19 04:28 12:04 23:02 WBC RBC Hgb Hct MCHC RDW Plt Count Lymph % (Auto) [place] % (Auto) Lymph # [place] # Seg Neutrophils % Seg Neuts % (Manual) Lymphocytes % (Manual) Seg Neutrophils # Seg Neutrophils # Man Lymphocytes # (Manual) Monocytes # (Manual) POC ABG pH ABG pH POC ABG pCO2 45.4 H POC ABG pO2 ABG pO2 ABG HCO3 ABG Base Excess ABG Hemoglobin Oxyhemoglobin Sodium Potassium Chloride Carbon Dioxide BUN Creatinine Glucose POC Glucose 109 H 111 H Calcium Phosphorus Magnesium Direct Bilirubin AST Alkaline Phosphatase C-Reactive Protein Serum Total Protein Total Protein Albumin Prealbumin Nhfqe-0-Epevbkdam Odrml-4-Mscdvcmns Gamma Globulins PEP Interpretation Triglycerides Urine pH Urine Creatinine Urine Total Protein Vancomycin Trough Digoxin Crossmatch 12/22/19 12/22/19 12/22/19 05:00 05:00 05:19 WBC RBC 2.96 L Hgb 8.6 L Hct 25.5 L MCHC RDW 16.7 H Plt Count Lymph % (Auto) [place] % (Auto) Lymph # [place] # Seg Neutrophils % Seg Neuts % (Manual) Lymphocytes % (Manual) Seg Neutrophils # Seg Neutrophils # Man Lymphocytes # (Manual) Monocytes # (Manual) POC ABG pH ABG pH POC ABG pCO2 POC ABG pO2 ABG pO2 ABG HCO3 ABG Base Excess ABG Hemoglobin Oxyhemoglobin Sodium Potassium 3.5 L Chloride Carbon Dioxide BUN Creatinine 0.5 L Glucose 111 H POC Glucose 106 H Calcium 8.1 L Phosphorus Magnesium Direct Bilirubin AST Alkaline Phosphatase C-Reactive Protein Serum Total Protein Total Protein Albumin Prealbumin Iadwx-5-Bvstfmbti Hzzdk-4-Kktjsaqbc Gamma Globulins PEP Interpretation Triglycerides Urine pH Urine Creatinine Urine Total Protein Vancomycin Trough Digoxin Crossmatch 11/04/19 11/05/19 11/05/19 12:40 00:28 04:19 WBC 12.4 H RBC 2.98 L Hgb 8.5 L Hct 25.5 L MCHC RDW 16.6 H Plt Count Lymph % (Auto) [place] % (Auto) Lymph # [place] # Seg Neutrophils % Seg Neuts % (Manual) Lymphocytes % (Manual) Seg Neutrophils # Seg Neutrophils # Man Lymphocytes # (Manual) Monocytes # (Manual) POC ABG pH ABG pH POC ABG pCO2 POC ABG pO2 ABG pO2 ABG HCO3 ABG Base Excess ABG Hemoglobin Oxyhemoglobin Sodium Potassium Chloride Carbon Dioxide BUN Creatinine Glucose POC Glucose 109 H 132 H Calcium Phosphorus Magnesium Direct Bilirubin AST Alkaline Phosphatase C-Reactive Protein Serum Total Protein Total Protein Albumin Prealbumin Wijid-0-Ecdahidkk Dzzrf-3-Ypbqurqss Gamma Globulins PEP Interpretation Triglycerides Urine pH Urine Creatinine Urine Total Protein Vancomycin Trough Digoxin Crossmatch 11/05/19 11/05/19 11/05/19 04:19 05:40 13:14 WBC RBC Hgb Hct MCHC RDW Plt Count Lymph % (Auto) [place] % (Auto) Lymph # [place] # Seg Neutrophils % Seg Neuts % (Manual) Lymphocytes % (Manual) Seg Neutrophils # Seg Neutrophils # Man Lymphocytes # (Manual) Monocytes # (Manual) POC ABG pH ABG pH POC ABG pCO2 POC ABG pO2 ABG pO2 ABG HCO3 ABG Base Excess ABG Hemoglobin Oxyhemoglobin Sodium Potassium 3.4 L Chloride Carbon Dioxide BUN Creatinine 0.4 L Glucose 106 H POC Glucose 136 H 145 H Calcium 8.2 L Phosphorus Magnesium Direct Bilirubin AST Alkaline Phosphatase C-Reactive Protein Serum Total Protein Total Protein Albumin Prealbumin Rnhvl-5-Vtpakkeac Rypoq-2-Gkfngzoxw Gamma Globulins PEP Interpretation Triglycerides Urine pH Urine Creatinine Urine Total Protein Vancomycin Trough Digoxin Crossmatch 11/05/19 11/05/19 11/06/19 18:29 23:42 05:00 WBC 12.2 H RBC 2.89 L Hgb 8.2 L Hct 24.9 L MCHC RDW 16.4 H Plt Count Lymph % (Auto) [place] % (Auto) Lymph # [place] # Seg Neutrophils % Seg Neuts % (Manual) Lymphocytes % (Manual) Seg Neutrophils # Seg Neutrophils # Man Lymphocytes # (Manual) Monocytes # (Manual) POC ABG pH ABG pH POC ABG pCO2 POC ABG pO2 ABG pO2 ABG HCO3 ABG Base Excess ABG Hemoglobin Oxyhemoglobin Sodium Potassium Chloride Carbon Dioxide BUN Creatinine Glucose POC Glucose 138 H 117 H Calcium Phosphorus Magnesium Direct Bilirubin AST Alkaline Phosphatase C-Reactive Protein Serum Total Protein Total Protein Albumin Prealbumin Mexmr-8-Iyohtmvjg Vtyrh-4-Wnnnpflck Gamma Globulins PEP Interpretation Triglycerides Urine pH Urine Creatinine Urine Total Protein Vancomycin Trough Digoxin Crossmatch 11/06/19 11/06/19 11/06/19 05:00 05:22 17:39 WBC RBC Hgb Hct MCHC RDW Plt Count Lymph % (Auto) [place] % (Auto) Lymph # [place] # Seg Neutrophils % Seg Neuts % (Manual) Lymphocytes % (Manual) Seg Neutrophils # Seg Neutrophils # Man Lymphocytes # (Manual) Monocytes # (Manual) POC ABG pH ABG pH POC ABG pCO2 POC ABG pO2 ABG pO2 ABG HCO3 ABG Base Excess ABG Hemoglobin Oxyhemoglobin Sodium Potassium Chloride Carbon Dioxide BUN Creatinine 0.4 L Glucose 114 H POC Glucose 121 H 110 H Calcium 8.2 L Phosphorus Magnesium Direct Bilirubin AST Alkaline Phosphatase C-Reactive Protein Serum Total Protein Total Protein Albumin Prealbumin Tcusm-3-Tsmsgnvnu Bzbtg-4-Hxzbfwltr Gamma Globulins PEP Interpretation Triglycerides Urine pH Urine Creatinine Urine Total Protein Vancomycin Trough Digoxin Crossmatch 11/06/19 11/07/19 11/07/19 23:29 04:06 04:06 WBC 13.0 H RBC 2.80 L Hgb 7.9 L Hct 24.0 L MCHC RDW 16.5 H Plt Count Lymph % (Auto) 7.0 L [place] % (Auto) Lymph # 0.9 L [place] # Seg Neutrophils % 86.3 H Seg Neuts % (Manual) Lymphocytes % (Manual) Seg Neutrophils # 11.2 H Seg Neutrophils # Man Lymphocytes # (Manual) Monocytes # (Manual) POC ABG pH ABG pH POC ABG pCO2 POC ABG pO2 ABG pO2 ABG HCO3 ABG Base Excess ABG Hemoglobin Oxyhemoglobin Sodium Potassium Chloride Carbon Dioxide BUN Creatinine 0.4 L Glucose 110 H POC Glucose 113 H Calcium 8.2 L Phosphorus Magnesium Direct Bilirubin AST Alkaline Phosphatase C-Reactive Protein Serum Total Protein Total Protein Albumin Prealbumin Ykpeo-2-Dbvafrgpg Nbaxt-8-Hcujmxlgw Gamma Globulins PEP Interpretation Triglycerides Urine pH Urine Creatinine Urine Total Protein Vancomycin Trough Digoxin Crossmatch 11/07/19 11/07/19 11/07/19 05:43 12:47 18:19 WBC RBC Hgb Hct MCHC RDW Plt Count Lymph % (Auto) [place] % (Auto) Lymph # [place] # Seg Neutrophils % Seg Neuts % (Manual) Lymphocytes % (Manual) Seg Neutrophils # Seg Neutrophils # Man Lymphocytes # (Manual) Monocytes # (Manual) POC ABG pH ABG pH POC ABG pCO2 POC ABG pO2 ABG pO2 ABG HCO3 ABG Base Excess ABG Hemoglobin Oxyhemoglobin Sodium Potassium Chloride Carbon Dioxide BUN Creatinine Glucose POC Glucose 114 H 120 H 112 H Calcium Phosphorus Magnesium Direct Bilirubin AST Alkaline Phosphatase C-Reactive Protein Serum Total Protein Total Protein Albumin Prealbumin Tflvn-0-Azsufzjla Uscdp-5-Qsdxkecvv Gamma Globulins PEP Interpretation Triglycerides Urine pH Urine Creatinine Urine Total Protein Vancomycin Trough Digoxin Crossmatch 11/08/19 11/08/19 11/08/19 03:45 03:45 11:43 WBC 12.7 H RBC 2.82 L Hgb 7.8 L Hct 24.4 L MCHC RDW 16.5 H Plt Count Lymph % (Auto) 9.4 L [place] % (Auto) Lymph # [place] # 0.9 H Seg Neutrophils % 83.0 H Seg Neuts % (Manual) Lymphocytes % (Manual) Seg Neutrophils # 10.6 H Seg Neutrophils # Man Lymphocytes # (Manual) Monocytes # (Manual) POC ABG pH ABG pH POC ABG pCO2 POC ABG pO2 ABG pO2 ABG HCO3 ABG Base Excess ABG Hemoglobin Oxyhemoglobin Sodium Potassium Chloride Carbon Dioxide BUN Creatinine 0.4 L Glucose 107 H POC Glucose 118 H Calcium Phosphorus Magnesium Direct Bilirubin AST Alkaline Phosphatase C-Reactive Protein Serum Total Protein Total Protein Albumin Prealbumin Sfddq-1-Yddvesqic Qxuvt-8-Tafycilov Gamma Globulins PEP Interpretation Triglycerides Urine pH Urine Creatinine Urine Total Protein Vancomycin Trough Digoxin Crossmatch 11/08/19 11/09/19 11/09/19 23:45 12:41 12:56 WBC RBC Hgb Hct MCHC RDW Plt Count Lymph % (Auto) [place] % (Auto) Lymph # [place] # Seg Neutrophils % Seg Neuts % (Manual) Lymphocytes % (Manual) Seg Neutrophils # Seg Neutrophils # Man Lymphocytes # (Manual) Monocytes # (Manual) POC ABG pH ABG pH POC ABG pCO2 POC ABG pO2 ABG pO2 ABG HCO3 ABG Base Excess ABG Hemoglobin Oxyhemoglobin Sodium Potassium Chloride Carbon Dioxide BUN Creatinine Glucose POC Glucose 113 H 107 H 122 H Calcium Phosphorus Magnesium Direct Bilirubin AST Alkaline Phosphatase C-Reactive Protein Serum Total Protein Total Protein Albumin Prealbumin Qvtqq-2-Hlampsikg Goahb-9-Xduojhquo Gamma Globulins PEP Interpretation Triglycerides Urine pH Urine Creatinine Urine Total Protein Vancomycin Trough Digoxin Crossmatch 11/10/19 11/10/19 11/11/19 05:12 12:20 12:13 WBC RBC Hgb Hct MCHC RDW Plt Count Lymph % (Auto) [place] % (Auto) Lymph # [place] # Seg Neutrophils % Seg Neuts % (Manual) Lymphocytes % (Manual) Seg Neutrophils # Seg Neutrophils # Man Lymphocytes # (Manual) Monocytes # (Manual) POC ABG pH ABG pH POC ABG pCO2 POC ABG pO2 ABG pO2 ABG HCO3 ABG Base Excess ABG Hemoglobin Oxyhemoglobin Sodium Potassium Chloride Carbon Dioxide BUN Creatinine Glucose POC Glucose 127 H 125 H 107 H Calcium Phosphorus Magnesium Direct Bilirubin AST Alkaline Phosphatase C-Reactive Protein Serum Total Protein Total Protein Albumin Prealbumin Fzkbv-2-Tzbpynfmw Ilbwi-9-Voisloxyc Gamma Globulins PEP Interpretation Triglycerides Urine pH Urine Creatinine Urine Total Protein Vancomycin Trough Digoxin Crossmatch 11/11/19 11/11/19 11/12/19 17:29 22:20 06:00 WBC RBC 2.77 L Hgb 7.8 L Hct 23.4 L MCHC RDW 16.6 H Plt Count Lymph % (Auto) 11.9 L [place] % (Auto) 8.9 H Lymph # [place] # 0.9 H Seg Neutrophils % 78.2 H Seg Neuts % (Manual) Lymphocytes % (Manual) Seg Neutrophils # 8.2 H Seg Neutrophils # Man Lymphocytes # (Manual) Monocytes # (Manual) POC ABG pH ABG pH POC ABG pCO2 POC ABG pO2 ABG pO2 ABG HCO3 ABG Base Excess ABG Hemoglobin Oxyhemoglobin Sodium Potassium Chloride Carbon Dioxide BUN Creatinine Glucose POC Glucose 120 H 109 H Calcium Phosphorus Magnesium Direct Bilirubin AST Alkaline Phosphatase C-Reactive Protein Serum Total Protein Total Protein Albumin Prealbumin Jvwhn-2-Uianmdmuc Ambbq-3-Lhxhollvw Gamma Globulins PEP Interpretation Triglycerides Urine pH Urine Creatinine Urine Total Protein Vancomycin Trough Digoxin Crossmatch 11/12/19 11/12/19 11/12/19 07:52 11:58 23:44 WBC RBC Hgb Hct MCHC RDW Plt Count Lymph % (Auto) [place] % (Auto) Lymph # [place] # Seg Neutrophils % Seg Neuts % (Manual) Lymphocytes % (Manual) Seg Neutrophils # Seg Neutrophils # Man Lymphocytes # (Manual) Monocytes # (Manual) POC ABG pH ABG pH POC ABG pCO2 POC ABG pO2 ABG pO2 ABG HCO3 ABG Base Excess ABG Hemoglobin Oxyhemoglobin Sodium Potassium Chloride Carbon Dioxide BUN Creatinine Glucose POC Glucose 120 H 140 H 116 H Calcium Phosphorus Magnesium Direct Bilirubin AST Alkaline Phosphatase C-Reactive Protein Serum Total Protein Total Protein Albumin Prealbumin Psmsv-5-Ppfvpcngf Fecgn-1-Nlwmawrtr Gamma Globulins PEP Interpretation Triglycerides Urine pH Urine Creatinine Urine Total Protein Vancomycin Trough Digoxin Crossmatch 11/13/19 11/13/19 11/13/19 04:33 04:33 13:43 WBC 11.2 H RBC 2.90 L Hgb 8.1 L Hct 24.5 L MCHC RDW 16.5 H Plt Count Lymph % (Auto) 10.1 L [place] % (Auto) 7.6 H Lymph # 1.1 L [place] # 0.9 H Seg Neutrophils % 81.1 H Seg Neuts % (Manual) Lymphocytes % (Manual) Seg Neutrophils # 9.1 H Seg Neutrophils # Man Lymphocytes # (Manual) Monocytes # (Manual) POC ABG pH ABG pH POC ABG pCO2 POC ABG pO2 ABG pO2 ABG HCO3 ABG Base Excess ABG Hemoglobin Oxyhemoglobin Sodium 135 L Potassium Chloride 91.9 L Carbon Dioxide BUN Creatinine 0.6 L Glucose POC Glucose 122 H Calcium Phosphorus Magnesium Direct Bilirubin AST Alkaline Phosphatase C-Reactive Protein Serum Total Protein Total Protein Albumin Prealbumin Wnyzr-3-Qltzldvcq Yfzrx-9-Nptcvpkvk Gamma Globulins PEP Interpretation Triglycerides Urine pH Urine Creatinine Urine Total Protein Vancomycin Trough Digoxin Crossmatch 11/13/19 11/14/19 17:57 12:35 WBC RBC Hgb Hct MCHC RDW Plt Count Lymph % (Auto) [place] % (Auto) Lymph # [place] # Seg Neutrophils % Seg Neuts % (Manual) Lymphocytes % (Manual) Seg Neutrophils # Seg Neutrophils # Man Lymphocytes # (Manual) Monocytes # (Manual) POC ABG pH ABG pH POC ABG pCO2 POC ABG pO2 ABG pO2 ABG HCO3 ABG Base Excess ABG Hemoglobin Oxyhemoglobin Sodium Potassium Chloride Carbon Dioxide BUN Creatinine Glucose POC Glucose 127 H 148 H Calcium Phosphorus Magnesium Direct Bilirubin AST Alkaline Phosphatase C-Reactive Protein Serum Total Protein Total Protein Albumin Prealbumin Iriuw-9-Jzvfzykib Fzthd-1-Bhexycjkq Gamma Globulins PEP Interpretation Triglycerides Urine pH Urine Creatinine Urine Total Protein Vancomycin Trough Digoxin Crossmatch
[2019-11-14] MEDS: HYDROmorphone 2 MG/1 ML INJ IV PRN (23:28)
[2019-11-14] MEDS: ENOXAPARIN 40 MG/0.4 ML INJ SUB-Q SCH (23:28)
[2019-11-15] MEDS: INSULIN LISPRO 100 UNIT/ML SUB-Q SCH ×4 (00:11→17:55)
[2019-11-15] MEDS: IPRATROPIUM/ALBUTEROL SULFATE 3 ML AMPUL.NEB IH SCH ×4 (02:29→23:26)
[2019-11-15] MEDS: METOPROLOL TARTRATE 50 MG TAB PO SCH ×3 (05:09→21:21)
[2019-11-15] MEDS: BUDESONIDE 0.5 MG/2 ML NEBU IH SCH ×2 (07:36→23:26)
[2019-11-15] MEDS: ARFORMOTEROL 15 MCG/2 ML NEBU IH SCH ×2 (07:36→23:26)
[2019-11-15 08:10] LABS: Hematocrit 24.2 % (35.5-45.6); Hemoglobin 7.8 gm/dl (11.8-15.2); Mean Corpuscular HGB Conc 32 % (32-34); Mean Corpuscular Volume 84 fl (84-94); Platelet Count 325 K/mm3 (140-440); Red Blood Count 2.89 M/mm3 (3.65-5.03); Red Cell Distribution Width 16.9 % (13.2-15.2)
[2019-11-15 08:28] LABS: BUN/Creatinine Ratio 20; Blood Urea Nitrogen 12 mg/dL (9-20); Calcium 8.9 mg/dL (8.4-10.2); Hemolysis Index 1
[2019-11-15] MEDS: AMIODARONE 200 MG TAB PO SCH (10:36)
[2019-11-15] MEDS: CITALOPRAM 20 MG TAB PO SCH (10:37)
[2019-11-15] MEDS: PANTOPRAZOLE 40 MG INJ IV SCH (10:37)
[2019-11-15] MEDS: LISINOPRIL 20 MG TAB PO SCH (10:39)
[2019-11-15] MEDS: HYDROmorphone 2 MG/1 ML INJ IV PRN (12:34)
--- NOTE | 2019-11-15 12:58 | Progress Note ---
Assessment and Plan - Patient Problems (1) Dehiscence of closure of fascia, superficial or muscular Current Visit: No Status: Acute Qualifiers: Encounter type: initial encounter Qualified Code(s): T81.32XA - Disruption of internal operation (surgical) wound, not elsewhere classified, initial encounter Plan to address problem: Pt stable. s/p ex lap with closure of abdominal wall and wound vac placement (10/05) - POD#41; s/p Re-exploration, washout, transection of colon, Abthera placement - 10/13 - POD#33; s/p abd washout, partial omentectomy, partial colectomy with colostomy - 10/16 POD#30. s/p abd washout, feeding tube placement, AbThera placement - 10/19 - POD#27; Abdominal washout and closure - 10/22 - POD#24 Patient appears stable. WBC slightly higher, but clinically stable. Rec: 1) Neuro - self-extubated 11/04. 2) CV - BP normal today 3) Resp - On NC. Small bore CT on left - removed 11/02. 4) GI - Ostomy looks good. Functioning. Sump drains - Right drain was accidentally pulled out (10/30). Left one is still functioning. New small bore catheter placed 10/30 - moderate output after drain was stripped. Has appeared like stool. looking thinner and more yellow today. Plan to connect both to wall suction - continuous. Output slowly trending down. Midline drain - seems to be working well. may eventually become main drain and we can remove the two left sided drains if their output is minimal. Wound Vac - wound looked good on last check. continue wound vac. Ostomy - functioning now. Some solid stool in bag. Gastric Port - May be used as needed for feeds or meds 5) - BUN/Cr stable. 6) ID - Abx per ID. Enterococcus on cultures. If patient has worsening labs/vitals, then rescan and place additional drains as appropriate. Discussed Abx plan with Dr. Lorenzo. I am ok with trial off Abx, 7) Nutrition - Tube feeds on hold due to clogged feeding port. As patient is tolerating regular diet, would continue to hold TFs and check weekly prealbumin to verify that he is getting enough calories. Passed Speech Eval. 8) DVT prophylaxis - SCDs. Lovenox 9) Family -sisters at bedside. 10) PT - will need rehab. 11) Dispo - Discussed with Dr. Negro about starting a search for a SNF/rehab. Ok for transfer to rehab from my perspective. Note: Spoke with [facility] surgeon on 11/01/19 about possible transfer. They reviewed the notes that were sent and we discussed the case. They felt that they had nothing else to offer. They agreed with our management. Also agreed that another exploration should not be done. If needed, additional drains can be placed. They did suggest putting a [place] tube in the rectum to decompress that area. (That has been done). This conversation was communicated to the . Please call with questions. Subjective Date of service: 11/15/19 Patient Reports: Positive: no new complaints, tolerating a regular diet, bowel movement, other (pain on left side at the drains. also has buttock pain). Negative: nausea, vomiting Objective Vital Signs - 12hr 11/15/19 11/15/19 11/15/19 05:34 07:36 08:15 Temperature 98.2 F 98.7 F Pulse Rate 80 78 Pulse Rate [ 74 Anterior Bilateral Throughout] Respiratory 20 22 Rate Respiratory 20 Rate [Anterior Bilateral Throughout] Blood Pressure 113/55 108/46 O2 Sat by Pulse 93 93 94 Oximetry 11/15/19 10:39 Temperature Pulse Rate 80 Pulse Rate [ Anterior Bilateral Throughout] Respiratory Rate Respiratory Rate [Anterior Bilateral Throughout] Blood Pressure 105/50 O2 Sat by Pulse Oximetry - General physical appearance no distress, no pain, other (looks well) - Respiratory normal expansion, normal respiratory effort - Abdomen soft, not tender, not distended, other (drains in place and functioning) - Integumentary no rash, no growths, no abnormal pigmentation - Psychiatric oriented to time, oriented to person, oriented to place, speech is normal, memory intact - Labs 11/15/19 07:10 11/15/19 07:10 Diabetes panel 11/15/19 Range/Units 07:10 Sodium 133 L (137-145) mmol/L Potassium 4.0 (3.6-5.0) mmol/L Chloride 93.7 L (98-107) mmol/L Carbon Dioxide 23 (22-30) mmol/L BUN 12 (9-20) mg/dL Creatinine 0.6 L (0.8-1.5) mg/dL Glucose 84 (75-100) mg/dL Calcium 8.9 (8.4-10.2) mg/dL Calcium panel 11/15/19 Range/Units 07:10 Calcium 8.9 (8.4-10.2) mg/dL Pituitary panel 11/15/19 Range/Units 07:10 Sodium 133 L (137-145) mmol/L Potassium 4.0 (3.6-5.0) mmol/L Chloride 93.7 L (98-107) mmol/L Carbon Dioxide 23 (22-30) mmol/L BUN 12 (9-20) mg/dL Creatinine 0.6 L (0.8-1.5) mg/dL Glucose 84 (75-100) mg/dL Calcium 8.9 (8.4-10.2) mg/dL Adrenal panel 11/15/19 Range/Units 07:10 Sodium 133 L (137-145) mmol/L Potassium 4.0 (3.6-5.0) mmol/L Chloride 93.7 L (98-107) mmol/L Carbon Dioxide 23 (22-30) mmol/L BUN 12 (9-20) mg/dL Creatinine 0.6 L (0.8-1.5) mg/dL Glucose 84 (75-100) mg/dL Calcium 8.9 (8.4-10.2) mg/dL
--- NOTE | 2019-11-15 16:53 | Progress Note ---
Assessment and Plan 54 y/o male with anastomic leak 11/15/19: Now back on oxygen. Unsure why. If requirement not weaned back down, will recheck CXR, No fever. Continue use of IS at bedside. 11/12/19: Spoke with surgery this am. Currently pleased with progress. Reviewed IR note, and they plan to remove CT today. Continue IS. Will speak with CM about looking into rehabs directly from IMCU as oppose to transferring to the floor first. 11/06: Chest tube intact. No air leak. Will ask IR if catheter can be pulled out normally (i.e. not some form of tunneled catheter). If so will have them take it out later this week. If [facility] beds available, good candidate for there, likely not quite ready for floor yet. 11/04: Stable self extubation. Continue chest tube to suction. Will likely start waterseal tomorrow. Goad maybe to get CT out Tuesday. All other drains per surgery. Encouraged use of IS regularly at the bedside and suctioning as needed per . 11/03: Looks clinically better. Na was better on repeat labs. Spoke with and surgery to update them both. Most likely will attempt extubation in the am. Will hold feeds for about an hour in the morning prior to extubation then restart. 11/02: Repeat labs this am. Hard time believing that 2 liters of normal saline made his sodium increase that much. Also, once i discuss with surgery, may consider giving more blood. Will also hold tube feeds briefly as well. In case any procedures. Lovenox held last night. Continue vent support 11/01: Spoke with Dr. Krause this am and understand his concerns. Have started the transfer process. Most ICU's throughout the city are on diversion or full. [facility] has received his Facesheet and we are awaiting to hear back from them. CXR is clear. Minimal vent settings. Will continue supportive care for now. Follow up any new ID recs given increasing white and fever. 10/31: Will check CXR tomorrow. Continue chest tube to suction. Will likely stay in until extubated. Continue drains. Explained to staff to be extremely careful with these drains so that they do not come out. 10/30: Acute on chronic respiratory failure requiring reintubation. Appreciate Anesthesia assistance as he was a difficult intubation when we had to change his tube out about 1 week ago. Will continue on 100% until after Scans and then start to wean back down. CXR yesterday looked like pulmonary edema but improved today with positive pressure. Continue supportive care and await results of scans. 10/29: Discussed today on rounds. Patient had some issues over the weekend with the ICE chips and liquids. Will obtain speech consult/eval prior to restarting clears today. Spoke with nutrition and they will adjust tube feeds with new goal. Once at goal will start to taper off TPN. ordered Incentive madhu to bedside. Will also restart home dose of elaine today. pain control and drainage monitoring. Will continue ICU care. 10/26: Patient stable overall. Not ready for floor. Would be ok with step down if beds are needed. If spikes temp again will order blood cultures x2, urine culture, UA and repeat CXR. Gave an additional 40 of lasix this am. Will give more potassium replacement. Continue trickle feeds for now. Will continue PO meds and restart home dose of citalopram. Wean FiO2 and flow for sats >88%. Mildly hypertensive but this was secondary to agitation. Normalizing now. 10/25: Will extubate today. Will use HFNC if distress or hypoxemia is noted. Not a good candidate for bipap given his recent abdominal issues. Spoke with who is now at bedside and surgery. Will continue to attempt to achieve net negative state daily. Hold on further albumin administration. Hypernatremia is iatrogenic from lasix administration Worse case scenario, will re-intubate with anesthesia. 10/24: Responding well to lasix and protein therapy. Will give 2 more doses of lasix today. Consider one for tonight as well. Last albumin today at 1800. CXR is stable, still with layering bilateral pleural effusions. Will reassess again tomorrow. Reviewed all other surgical product sales consultant notes. Spoke with sisters at bedside, updated and spoke with surgery. 10/23: Long discussion with surgery and via phone. Anasarca is likely from decreased oncotic pressure and immobility of several days now that abdomen is finally closed. Now fluid is essentially leaking into the interstitium now that the abdomen is shut and there is increased intra-abdominal pressure. Total Protein is 4.5 and albumin is 1.2. This is to be expected given current illness . Will attempt to increase oncotic pressure with 2 units of PRBC's and albumin infusions for the next 24 hours starting at midnight tonight. Will give lasix inbetween transfusions and then again tonight. CXR is consistent with pulmonary edema volume overload. Will continue vent for now and after significant volume removal then will attempt extubation. Discussed with and she understands. Will continue to monitor. Agree with trickle feeds and cards has switched amio over to PO to be given through the G-tube. If tolerates, hopeful to be rid of TPN soon as this is necessary but excessive volume as well. 10/22: Added diprovan as more sedation was needed. Hopefully once closed and no leaks, patient can be extubated. Cards very concerned about length of time for IV amio. Will discuss with surgery the time frame that gut can be used. 10/21: Will hold on weaning until abdomen is closed, especially knowing mental status is good. Will focus on pain control. Replace electrolytes. Appreciate Surgery recs and detail. Follow up any new recs from cards. Or tomorrow for closure Subjective Date of service: 11/15/19 Principal diagnosis: acute renal failure Interval history: patient placed back on nasal cannula overnight. No documentation as to why. Was on 2 at 98 now on 3 as of 0700 this am with sat of 93. Objective Vital Signs - 12hr 11/15/19 11/15/19 11/15/19 05:34 07:36 08:15 Temperature 98.2 F 98.7 F Pulse Rate 80 78 Pulse Rate [ 74 Anterior Bilateral Throughout] Respiratory 20 22 Rate Respiratory 20 Rate [Anterior Bilateral Throughout] Blood Pressure 113/55 108/46 O2 Sat by Pulse 93 93 94 Oximetry 11/15/19 10:39 Temperature Pulse Rate 80 Pulse Rate [ Anterior Bilateral Throughout] Respiratory Rate Respiratory Rate [Anterior Bilateral Throughout] Blood Pressure 105/50 O2 Sat by Pulse Oximetry Constitutional: no acute distress, alert, other (obese) Eyes: non-icteric ENT: oropharynx moist Neck: supple Effort: normal Ascultation: Bilateral: diminished breath sounds (bases) Cardiovascular: regular rate and rhythm (no mrg) Gastrointestinal: tender, other (obese, distended, ostomy in place; wound vac in place) Integumentary: normal Extremities: no cyanosis, pink and warm, edema (1+ bilateral LE edema) Neurologic: normal mental status, non-focal exam, pupils equal and round Psychiatric: mood appropriate, affect normal CBC and BMP: 11/15/19 07:10 11/15/19 07:10 ABG, PT/INR, D-dimer: ABG POC ABG pH 7.422 (7.35-7.45) 11/03/19 04:28 ABG pH 7.390 pH Units (7.350-7.450) 10/23/19 04:47 POC ABG pCO2 45.4 (35-45) H 11/03/19 04:28 ABG pCO2 48.4 mm Hg 10/23/19 04:47 POC ABG pO2 83 (80-105) 11/03/19 04:28 ABG pO2 68.9 mm Hg (80.0-90.0) L 10/23/19 04:47 POC ABG HCO3 29.6 (22-26 mml/L) 11/03/19 04:28 POC ABG Total CO2 31 (23-27mmol/L) 11/03/19 04:28 POC ABG O2 Sat 96 11/03/19 04:28 ABG O2 Saturation 96.6 % (95.0-99.0) 10/23/19 04:47 Abnormal lab findings: Abnormal Labs 10/06/19 10/06/19 10/07/19 05:36 05:36 05:54 WBC 21.8 H 21.5 H RBC 3.55 L Hgb 10.9 L Hct 32.7 L MCH MCHC RDW Plt Count Lymph % (Auto) [place] % (Auto) Lymph # [place] # Seg Neutrophils % Seg Neuts % (Manual) 91.0 H Lymphocytes % (Manual) 2.0 L Seg Neutrophils # Seg Neutrophils # Man 19.8 H Lymphocytes # (Manual) 0.4 L Monocytes # (Manual) 1.1 H POC ABG pH ABG pH POC ABG pCO2 POC ABG pO2 ABG pO2 ABG HCO3 ABG Base Excess ABG Hemoglobin Oxyhemoglobin Sodium 135 L Potassium Chloride 95.9 L Carbon Dioxide BUN Creatinine 0.7 L Glucose POC Glucose Calcium Phosphorus Magnesium Direct Bilirubin AST Alkaline Phosphatase C-Reactive Protein Serum Total Protein Total Protein 5.7 L Albumin 2.5 L Prealbumin Uznwg-5-Yddtfxidt Rwxjd-7-Aomkclxge Gamma Globulins PEP Interpretation Triglycerides Urine pH Urine Creatinine Urine Total Protein Vancomycin Trough Digoxin Crossmatch 10/07/19 10/09/19 10/09/19 05:54 10:52 10:52 WBC 16.6 H RBC Hgb Hct MCH MCHC RDW Plt Count 498 H Lymph % (Auto) [place] % (Auto) Lymph # [place] # Seg Neutrophils % Seg Neuts % (Manual) 93.0 H Lymphocytes % (Manual) 5.0 L Seg Neutrophils # Seg Neutrophils # Man 15.4 H Lymphocytes # (Manual) 0.8 L Monocytes # (Manual) POC ABG pH ABG pH POC ABG pCO2 POC ABG pO2 ABG pO2 ABG HCO3 ABG Base Excess ABG Hemoglobin Oxyhemoglobin Sodium Potassium Chloride 97.9 L Carbon Dioxide 20 L D BUN 23 H Creatinine 1.7 H D Glucose 109 H POC Glucose Calcium 8.1 L Phosphorus Magnesium Direct Bilirubin AST Alkaline Phosphatase C-Reactive Protein Serum Total Protein Total Protein Albumin Prealbumin Xchuj-8-Cdfsuvroi Sxsxy-5-Kljcxpzfc Gamma Globulins PEP Interpretation Triglycerides Urine pH Urine Creatinine Urine Total Protein Vancomycin Trough Digoxin Crossmatch 10/09/19 10/10/19 10/10/19 17:23 05:30 05:30 WBC 14.6 H RBC Hgb 11.1 L Hct 33.5 L MCH MCHC RDW Plt Count 527 H Lymph % (Auto) [place] % (Auto) Lymph # [place] # Seg Neutrophils % Seg Neuts % (Manual) Lymphocytes % (Manual) Seg Neutrophils # Seg Neutrophils # Man Lymphocytes # (Manual) Monocytes # (Manual) POC ABG pH ABG pH POC ABG pCO2 POC ABG pO2 ABG pO2 ABG HCO3 ABG Base Excess ABG Hemoglobin Oxyhemoglobin Sodium 130 L D Potassium 5.1 H Chloride 90.0 L 91.0 L Carbon Dioxide 20 L 20 L BUN 27 H 35 H Creatinine 1.9 H 2.0 H Glucose 104 H POC Glucose Calcium Phosphorus Magnesium Direct Bilirubin AST Alkaline Phosphatase C-Reactive Protein Serum Total Protein Total Protein Albumin Prealbumin Dtewf-3-Chcsaqylz Kzdgt-0-Kxablkace Gamma Globulins PEP Interpretation Triglycerides Urine pH Urine Creatinine Urine Total Protein Vancomycin Trough Digoxin Crossmatch 10/10/19 10/10/19 10/11/19 08:33 08:44 05:41 WBC 13.2 H RBC Hgb 11.3 L Hct 33.8 L MCH MCHC RDW 15.3 H Plt Count 543 H Lymph % (Auto) [place] % (Auto) Lymph # [place] # Seg Neutrophils % Seg Neuts % (Manual) Lymphocytes % (Manual) Seg Neutrophils # Seg Neutrophils # Man Lymphocytes # (Manual) Monocytes # (Manual) POC ABG pH ABG pH POC ABG pCO2 POC ABG pO2 ABG pO2 ABG HCO3 ABG Base Excess ABG Hemoglobin Oxyhemoglobin Sodium Potassium Chloride Carbon Dioxide BUN Creatinine Glucose 113 H POC Glucose 117 H Calcium Phosphorus Magnesium Direct Bilirubin AST Alkaline Phosphatase C-Reactive Protein Serum Total Protein Total Protein Albumin Prealbumin Emiue-1-Jctaoirzh Wqmje-0-Ymkzszbrj Gamma Globulins PEP Interpretation Triglycerides Urine pH Urine Creatinine Urine Total Protein Vancomycin Trough Digoxin Crossmatch 10/11/19 10/11/19 10/11/19 05:41 06:23 06:23 WBC RBC Hgb Hct MCH MCHC RDW Plt Count Lymph % (Auto) [place] % (Auto) Lymph # [place] # Seg Neutrophils % Seg Neuts % (Manual) Lymphocytes % (Manual) Seg Neutrophils # Seg Neutrophils # Man Lymphocytes # (Manual) Monocytes # (Manual) POC ABG pH ABG pH POC ABG pCO2 POC ABG pO2 ABG pO2 ABG HCO3 ABG Base Excess ABG Hemoglobin Oxyhemoglobin Sodium 134 L Potassium Chloride 96.3 L Carbon Dioxide BUN 37 H Creatinine Glucose 58 L POC Glucose Calcium Phosphorus 4.90 H Magnesium Direct Bilirubin AST Alkaline Phosphatase C-Reactive Protein Serum Total Protein Total Protein Albumin Prealbumin Onuus-3-Lhopxvqci Rqjtz-2-Ggrskutvw Gamma Globulins PEP Interpretation Triglycerides Urine pH Urine Creatinine 118.2 H 116.8 H Urine Total Protein 105 H 104 H Vancomycin Trough Digoxin Crossmatch 10/11/19 10/12/19 10/12/19 09:00 06:09 06:09 WBC 13.8 H RBC 3.39 L Hgb 10.2 L Hct 30.9 L MCH MCHC RDW 15.5 H Plt Count 459 H Lymph % (Auto) [place] % (Auto) Lymph # [place] # Seg Neutrophils % Seg Neuts % (Manual) Lymphocytes % (Manual) Seg Neutrophils # Seg Neutrophils # Man Lymphocytes # (Manual) Monocytes # (Manual) POC ABG pH ABG pH POC ABG pCO2 POC ABG pO2 ABG pO2 ABG HCO3 ABG Base Excess ABG Hemoglobin Oxyhemoglobin Sodium 131 L Potassium Chloride 96.2 L Carbon Dioxide 21 L BUN 43 H Creatinine Glucose 72 L POC Glucose Calcium Phosphorus Magnesium Direct Bilirubin AST Alkaline Phosphatase C-Reactive Protein Serum Total Protein 5.2 L Total Protein Albumin 1.9 L Prealbumin Zuoje-2-Nxrmakorh 0.9 H Mfras-3-Guoehkyil 1.0 H Gamma Globulins 0.7 L PEP Interpretation see below H Triglycerides Urine pH Urine Creatinine Urine Total Protein Vancomycin Trough Digoxin Crossmatch 10/12/19 10/12/19 10/12/19 08:20 09:30 09:30 WBC RBC Hgb Hct MCH MCHC RDW Plt Count Lymph % (Auto) [place] % (Auto) Lymph # [place] # Seg Neutrophils % Seg Neuts % (Manual) Lymphocytes % (Manual) Seg Neutrophils # Seg Neutrophils # Man Lymphocytes # (Manual) Monocytes # (Manual) POC ABG pH ABG pH POC ABG pCO2 POC ABG pO2 63 L ABG pO2 ABG HCO3 ABG Base Excess ABG Hemoglobin Oxyhemoglobin Sodium Potassium Chloride Carbon Dioxide BUN Creatinine Glucose POC Glucose Calcium Phosphorus Magnesium 2.50 H Direct Bilirubin 0.3 H AST Alkaline Phosphatase C-Reactive Protein Serum Total Protein Total Protein 5.1 L Albumin 2.2 L Prealbumin Gmuec-4-Klqivnyga Rtdxe-8-Rkhfwpsct Gamma Globulins PEP Interpretation Triglycerides Urine pH Urine Creatinine Urine Total Protein Vancomycin Trough Digoxin Crossmatch 10/13/19 10/13/19 10/13/19 04:20 04:20 13:20 WBC 15.7 H RBC 3.64 L Hgb 10.9 L Hct 33.1 L MCH MCHC RDW 15.8 H Plt Count 488 H Lymph % (Auto) [place] % (Auto) Lymph # [place] # Seg Neutrophils % Seg Neuts % (Manual) Lymphocytes % (Manual) Seg Neutrophils # Seg Neutrophils # Man Lymphocytes # (Manual) Monocytes # (Manual) POC ABG pH ABG pH POC ABG pCO2 POC ABG pO2 ABG pO2 ABG HCO3 ABG Base Excess ABG Hemoglobin Oxyhemoglobin Sodium Potassium Chloride Carbon Dioxide BUN 28 H Creatinine Glucose POC Glucose Calcium Phosphorus Magnesium Direct Bilirubin AST Alkaline Phosphatase C-Reactive Protein Serum Total Protein Total Protein Albumin Prealbumin Egdlz-9-Nqxfelqbm Dalfd-4-Mbmhdpksu Gamma Globulins PEP Interpretation Triglycerides Urine pH Urine Creatinine Urine Total Protein Vancomycin Trough Digoxin Crossmatch See Detail 10/13/19 10/13/19 10/14/19 18:24 20:05 04:47 WBC 24.2 H RBC Hgb 10.9 L Hct 34.2 L MCH MCHC RDW 17.0 H Plt Count 442 H Lymph % (Auto) [place] % (Auto) Lymph # [place] # Seg Neutrophils % Seg Neuts % (Manual) Lymphocytes % (Manual) Seg Neutrophils # Seg Neutrophils # Man Lymphocytes # (Manual) Monocytes # (Manual) POC ABG pH ABG pH 7.180 L* 7.278 L POC ABG pCO2 POC ABG pO2 ABG pO2 130.7 H ABG HCO3 ABG Base Excess -6.5 L -6.5 L ABG Hemoglobin 12.2 L 12.3 L Oxyhemoglobin 92.9 L Sodium Potassium Chloride Carbon Dioxide BUN Creatinine Glucose POC Glucose Calcium Phosphorus Magnesium Direct Bilirubin AST Alkaline Phosphatase C-Reactive Protein Serum Total Protein Total Protein Albumin Prealbumin Ainhf-5-Gmqeekrak Glatb-8-Bovrrnnuh Gamma Globulins PEP Interpretation Triglycerides Urine pH Urine Creatinine Urine Total Protein Vancomycin Trough Digoxin Crossmatch 10/14/19 10/14/19 10/14/19 04:47 05:40 10:14 WBC RBC Hgb Hct MCH MCHC RDW Plt Count Lymph % (Auto) [place] % (Auto) Lymph # [place] # Seg Neutrophils % Seg Neuts % (Manual) Lymphocytes % (Manual) Seg Neutrophils # Seg Neutrophils # Man Lymphocytes # (Manual) Monocytes # (Manual) POC ABG pH ABG pH POC ABG pCO2 POC ABG pO2 ABG pO2 76.3 L ABG HCO3 19.1 L ABG Base Excess -5.8 L ABG Hemoglobin 10.9 L Oxyhemoglobin 93.4 L Sodium Potassium 5.1 H D Chloride 109.2 H Carbon Dioxide 17 L BUN 38 H Creatinine 1.8 H D Glucose 104 H POC Glucose Calcium 7.4 L Phosphorus 5.60 H Magnesium Direct Bilirubin AST Alkaline Phosphatase C-Reactive Protein Serum Total Protein Total Protein Albumin Prealbumin Phznc-2-Sezznktdg Nlycw-3-Suohyifgu Gamma Globulins PEP Interpretation Triglycerides Urine pH Urine Creatinine Urine Total Protein Vancomycin Trough Digoxin Crossmatch 10/14/19 10/15/19 10/15/19 23:46 04:32 04:32 WBC 15.5 H RBC 2.89 L Hgb 8.8 L Hct 27.3 L D MCH MCHC RDW 16.6 H Plt Count Lymph % (Auto) [place] % (Auto) Lymph # [place] # Seg Neutrophils % Seg Neuts % (Manual) Lymphocytes % (Manual) Seg Neutrophils # Seg Neutrophils # Man Lymphocytes # (Manual) Monocytes # (Manual) POC ABG pH ABG pH POC ABG pCO2 POC ABG pO2 ABG pO2 ABG HCO3 ABG Base Excess ABG Hemoglobin Oxyhemoglobin Sodium 147 H Potassium Chloride 114.0 H Carbon Dioxide 19 L BUN 42 H Creatinine Glucose 112 H POC Glucose 113 H Calcium 7.3 L Phosphorus Magnesium Direct Bilirubin AST 72 H Alkaline Phosphatase C-Reactive Protein 30.60 H Serum Total Protein Total Protein 4.0 L D Albumin 1.7 L Prealbumin 0.030 L Nyiwh-9-Qhfitlqik Kggkl-1-Ufwopzflp Gamma Globulins PEP Interpretation Triglycerides Urine pH Urine Creatinine Urine Total Protein Vancomycin Trough Digoxin Crossmatch 10/15/19 10/15/19 10/15/19 05:30 12:08 17:23 WBC RBC Hgb Hct MCH MCHC RDW Plt Count Lymph % (Auto) [place] % (Auto) Lymph # [place] # Seg Neutrophils % Seg Neuts % (Manual) Lymphocytes % (Manual) Seg Neutrophils # Seg Neutrophils # Man Lymphocytes # (Manual) Monocytes # (Manual) POC ABG pH ABG pH 7.296 L POC ABG pCO2 POC ABG pO2 ABG pO2 114.7 H ABG HCO3 ABG Base Excess -3.7 L ABG Hemoglobin 8.9 L Oxyhemoglobin Sodium Potassium Chloride Carbon Dioxide BUN Creatinine Glucose POC Glucose 106 H 106 H Calcium Phosphorus Magnesium Direct Bilirubin AST Alkaline Phosphatase C-Reactive Protein Serum Total Protein Total Protein Albumin Prealbumin Utnyp-7-Shnssrpha Hkqli-4-Rdheqpuxl Gamma Globulins PEP Interpretation Triglycerides Urine pH Urine Creatinine Urine Total Protein Vancomycin Trough Digoxin Crossmatch 10/16/19 10/16/19 10/16/19 00:07 04:44 05:24 WBC RBC Hgb Hct MCH MCHC RDW Plt Count Lymph % (Auto) [place] % (Auto) Lymph # [place] # Seg Neutrophils % Seg Neuts % (Manual) Lymphocytes % (Manual) Seg Neutrophils # Seg Neutrophils # Man Lymphocytes # (Manual) Monocytes # (Manual) POC ABG pH ABG pH POC ABG pCO2 POC ABG pO2 ABG pO2 ABG HCO3 ABG Base Excess ABG Hemoglobin Oxyhemoglobin Sodium 150 H Potassium Chloride 115.8 H Carbon Dioxide BUN 35 H Creatinine Glucose 129 H POC Glucose 119 H 129 H Calcium 7.3 L Phosphorus 1.80 L D Magnesium Direct Bilirubin AST Alkaline Phosphatase C-Reactive Protein Serum Total Protein Total Protein Albumin Prealbumin Jvgqy-1-Xqriyuzyy Lugen-8-Kshgcpyxv Gamma Globulins PEP Interpretation Triglycerides Urine pH Urine Creatinine Urine Total Protein Vancomycin Trough Digoxin Crossmatch 10/16/19 10/16/19 10/16/19 06:53 09:20 11:58 WBC 14.6 H RBC 2.70 L Hgb 8.1 L Hct 25.2 L MCH MCHC RDW 16.7 H Plt Count Lymph % (Auto) [place] % (Auto) Lymph # [place] # Seg Neutrophils % Seg Neuts % (Manual) 79.0 H Lymphocytes % (Manual) 4.0 L Seg Neutrophils # Seg Neutrophils # Man 11.5 H Lymphocytes # (Manual) 0.6 L Monocytes # (Manual) POC ABG pH ABG pH POC ABG pCO2 47.0 H POC ABG pO2 ABG pO2 ABG HCO3 ABG Base Excess ABG Hemoglobin Oxyhemoglobin Sodium Potassium Chloride Carbon Dioxide BUN Creatinine Glucose POC Glucose Calcium Phosphorus Magnesium Direct Bilirubin AST Alkaline Phosphatase C-Reactive Protein Serum Total Protein Total Protein Albumin Prealbumin Dogvc-2-Ptvehhbdd Oppvl-3-Nugurzzlj Gamma Globulins PEP Interpretation Triglycerides Urine pH Urine Creatinine Urine Total Protein Vancomycin Trough Digoxin Crossmatch See Detail 10/16/19 10/16/19 10/16/19 15:23 17:50 23:58 WBC RBC Hgb Hct MCH MCHC RDW Plt Count Lymph % (Auto) [place] % (Auto) Lymph # [place] # Seg Neutrophils % Seg Neuts % (Manual) Lymphocytes % (Manual) Seg Neutrophils # Seg Neutrophils # Man Lymphocytes # (Manual) Monocytes # (Manual) POC ABG pH ABG pH POC ABG pCO2 POC ABG pO2 ABG pO2 ABG HCO3 ABG Base Excess ABG Hemoglobin Oxyhemoglobin Sodium Potassium Chloride Carbon Dioxide BUN Creatinine Glucose POC Glucose 221 H 201 H 179 H Calcium Phosphorus Magnesium Direct Bilirubin AST Alkaline Phosphatase C-Reactive Protein Serum Total Protein Total Protein Albumin Prealbumin Wvlbm-1-Wzhkuyqim Isbow-0-Lifjxxcwk Gamma Globulins PEP Interpretation Triglycerides Urine pH Urine Creatinine Urine Total Protein Vancomycin Trough Digoxin Crossmatch 10/17/19 10/17/19 10/17/19 04:08 04:08 05:41 WBC 22.3 H RBC 3.35 L Hgb 10.0 L Hct 31.2 L D MCH MCHC RDW 16.1 H Plt Count Lymph % (Auto) [place] % (Auto) Lymph # [place] # Seg Neutrophils % Seg Neuts % (Manual) Lymphocytes % (Manual) Seg Neutrophils # Seg Neutrophils # Man Lymphocytes # (Manual) Monocytes # (Manual) POC ABG pH 7.310 L ABG pH POC ABG pCO2 52.8 H POC ABG pO2 70 L ABG pO2 ABG HCO3 ABG Base Excess ABG Hemoglobin Oxyhemoglobin Sodium 147 H Potassium Chloride 114.9 H Carbon Dioxide BUN 36 H Creatinine Glucose 165 H POC Glucose Calcium 6.9 L Phosphorus 2.20 L D Magnesium Direct Bilirubin AST Alkaline Phosphatase C-Reactive Protein Serum Total Protein Total Protein Albumin Prealbumin Owwpb-7-Qtqemhvvh Tqwxt-0-Kighgsaii Gamma Globulins PEP Interpretation Triglycerides Urine pH Urine Creatinine Urine Total Protein Vancomycin Trough Digoxin Crossmatch 10/17/19 10/17/19 10/17/19 05:42 11:33 18:17 WBC RBC Hgb Hct MCH MCHC RDW Plt Count Lymph % (Auto) [place] % (Auto) Lymph # [place] # Seg Neutrophils % Seg Neuts % (Manual) Lymphocytes % (Manual) Seg Neutrophils # Seg Neutrophils # Man Lymphocytes # (Manual) Monocytes # (Manual) POC ABG pH ABG pH POC ABG pCO2 POC ABG pO2 ABG pO2 ABG HCO3 ABG Base Excess ABG Hemoglobin Oxyhemoglobin Sodium Potassium Chloride Carbon Dioxide BUN Creatinine Glucose POC Glucose 149 H 154 H 163 H Calcium Phosphorus Magnesium Direct Bilirubin AST Alkaline Phosphatase C-Reactive Protein Serum Total Protein Total Protein Albumin Prealbumin Xyfjv-0-Nscnsjaex Ibuyl-4-Tukitwfef Gamma Globulins PEP Interpretation Triglycerides Urine pH Urine Creatinine Urine Total Protein Vancomycin Trough Digoxin Crossmatch 10/17/19 10/18/19 10/18/19 23:34 03:29 04:50 WBC RBC Hgb Hct MCH MCHC RDW Plt Count Lymph % (Auto) [place] % (Auto) Lymph # [place] # Seg Neutrophils % Seg Neuts % (Manual) Lymphocytes % (Manual) Seg Neutrophils # Seg Neutrophils # Man Lymphocytes # (Manual) Monocytes # (Manual) POC ABG pH ABG pH POC ABG pCO2 POC ABG pO2 ABG pO2 78.8 L ABG HCO3 ABG Base Excess ABG Hemoglobin 8.8 L Oxyhemoglobin Sodium Potassium Chloride 111.8 H Carbon Dioxide BUN 27 H Creatinine 0.6 L Glucose 140 H POC Glucose 135 H Calcium 7.1 L Phosphorus 1.80 L Magnesium Direct Bilirubin AST Alkaline Phosphatase C-Reactive Protein Serum Total Protein Total Protein Albumin Prealbumin Vlfkr-2-Wtayriksk Ijlvd-7-Obhkgjoqo Gamma Globulins PEP Interpretation Triglycerides Urine pH Urine Creatinine Urine Total Protein Vancomycin Trough Digoxin Crossmatch 10/18/19 10/18/19 10/18/19 05:45 11:19 18:26 WBC RBC Hgb Hct MCH MCHC RDW Plt Count Lymph % (Auto) [place] % (Auto) Lymph # [place] # Seg Neutrophils % Seg Neuts % (Manual) Lymphocytes % (Manual) Seg Neutrophils # Seg Neutrophils # Man Lymphocytes # (Manual) Monocytes # (Manual) POC ABG pH ABG pH POC ABG pCO2 POC ABG pO2 ABG pO2 ABG HCO3 ABG Base Excess ABG Hemoglobin Oxyhemoglobin Sodium Potassium Chloride Carbon Dioxide BUN Creatinine Glucose POC Glucose 145 H 152 H 125 H Calcium Phosphorus Magnesium Direct Bilirubin AST Alkaline Phosphatase C-Reactive Protein Serum Total Protein Total Protein Albumin Prealbumin Pcxwk-3-Bqhcinhck Yhtlt-5-Lnbuhgrye Gamma Globulins PEP Interpretation Triglycerides Urine pH Urine Creatinine Urine Total Protein Vancomycin Trough Digoxin Crossmatch 10/18/19 10/19/19 10/19/19 23:27 04:21 04:21 WBC RBC Hgb Hct MCH MCHC RDW Plt Count Lymph % (Auto) [place] % (Auto) Lymph # [place] # Seg Neutrophils % Seg Neuts % (Manual) Lymphocytes % (Manual) Seg Neutrophils # Seg Neutrophils # Man Lymphocytes # (Manual) Monocytes # (Manual) POC ABG pH ABG pH POC ABG pCO2 POC ABG pO2 ABG pO2 ABG HCO3 ABG Base Excess ABG Hemoglobin Oxyhemoglobin Sodium Potassium Chloride 108.4 H Carbon Dioxide BUN 22 H Creatinine 0.5 L Glucose 123 H POC Glucose 127 H Calcium 7.4 L Phosphorus 1.80 L Magnesium Direct Bilirubin AST Alkaline Phosphatase C-Reactive Protein Serum Total Protein Total Protein Albumin Prealbumin Mgzah-9-Ilnciwjpj Fcama-7-Plkuyvcbv Gamma Globulins PEP Interpretation Triglycerides Urine pH Urine Creatinine Urine Total Protein Vancomycin Trough Digoxin 0.7 L Crossmatch 10/19/19 10/19/19 10/19/19 05:00 05:35 11:26 WBC RBC Hgb Hct MCH MCHC RDW Plt Count Lymph % (Auto) [place] % (Auto) Lymph # [place] # Seg Neutrophils % Seg Neuts % (Manual) Lymphocytes % (Manual) Seg Neutrophils # Seg Neutrophils # Man Lymphocytes # (Manual) Monocytes # (Manual) POC ABG pH ABG pH 7.456 H POC ABG pCO2 POC ABG pO2 ABG pO2 78.8 L ABG HCO3 ABG Base Excess ABG Hemoglobin 5.6 L Oxyhemoglobin Sodium Potassium Chloride Carbon Dioxide BUN Creatinine Glucose POC Glucose 124 H 111 H Calcium Phosphorus Magnesium Direct Bilirubin AST Alkaline Phosphatase C-Reactive Protein Serum Total Protein Total Protein Albumin Prealbumin Wooxz-4-Sdrrmfodg Mjpal-1-Xjkujjzym Gamma Globulins PEP Interpretation Triglycerides Urine pH Urine Creatinine Urine Total Protein Vancomycin Trough Digoxin Crossmatch 10/19/19 10/20/19 10/20/19 23:23 04:50 05:17 WBC RBC Hgb Hct MCH MCHC RDW Plt Count Lymph % (Auto) [place] % (Auto) Lymph # [place] # Seg Neutrophils % Seg Neuts % (Manual) Lymphocytes % (Manual) Seg Neutrophils # Seg Neutrophils # Man Lymphocytes # (Manual) Monocytes # (Manual) POC ABG pH ABG pH POC ABG pCO2 POC ABG pO2 ABG pO2 ABG HCO3 ABG Base Excess ABG Hemoglobin Oxyhemoglobin Sodium Potassium Chloride 108.1 H Carbon Dioxide BUN Creatinine 0.4 L Glucose 134 H POC Glucose 129 H 123 H Calcium 7.1 L Phosphorus Magnesium Direct Bilirubin AST Alkaline Phosphatase C-Reactive Protein Serum Total Protein Total Protein Albumin Prealbumin Aomhg-5-Hjehqesbn Utckm-4-Svldbspsp Gamma Globulins PEP Interpretation Triglycerides Urine pH Urine Creatinine Urine Total Protein Vancomycin Trough Digoxin Crossmatch 10/20/19 10/20/19 10/21/19 11:40 19:06 05:08 WBC RBC Hgb Hct MCH MCHC RDW Plt Count Lymph % (Auto) [place] % (Auto) Lymph # [place] # Seg Neutrophils % Seg Neuts % (Manual) Lymphocytes % (Manual) Seg Neutrophils # Seg Neutrophils # Man Lymphocytes # (Manual) Monocytes # (Manual) POC ABG pH ABG pH POC ABG pCO2 POC ABG pO2 ABG pO2 ABG HCO3 ABG Base Excess ABG Hemoglobin Oxyhemoglobin Sodium Potassium Chloride Carbon Dioxide BUN Creatinine Glucose POC Glucose 139 H 117 H 131 H Calcium Phosphorus Magnesium Direct Bilirubin AST Alkaline Phosphatase C-Reactive Protein Serum Total Protein Total Protein Albumin Prealbumin Lodqv-0-Lgldfoapx Dkqsr-3-Zehtlhqew Gamma Globulins PEP Interpretation Triglycerides Urine pH Urine Creatinine Urine Total Protein Vancomycin Trough Digoxin Crossmatch 10/21/19 10/21/19 10/21/19 05:30 12:04 17:31 WBC RBC Hgb Hct MCH MCHC RDW Plt Count Lymph % (Auto) [place] % (Auto) Lymph # [place] # Seg Neutrophils % Seg Neuts % (Manual) Lymphocytes % (Manual) Seg Neutrophils # Seg Neutrophils # Man Lymphocytes # (Manual) Monocytes # (Manual) POC ABG pH ABG pH POC ABG pCO2 POC ABG pO2 ABG pO2 ABG HCO3 ABG Base Excess ABG Hemoglobin Oxyhemoglobin Sodium Potassium Chloride 107.8 H Carbon Dioxide BUN Creatinine 0.5 L Glucose 119 H POC Glucose 119 H 110 H Calcium 7.6 L Phosphorus Magnesium Direct Bilirubin AST Alkaline Phosphatase C-Reactive Protein Serum Total Protein Total Protein Albumin Prealbumin Bnvbc-2-Rtlhgzunv Ttgzx-9-Lizjnlueh Gamma Globulins PEP Interpretation Triglycerides Urine pH Urine Creatinine Urine Total Protein Vancomycin Trough Digoxin Crossmatch 10/22/19 10/22/19 10/22/19 05:14 05:37 12:07 WBC RBC Hgb Hct MCH MCHC RDW Plt Count Lymph % (Auto) [place] % (Auto) Lymph # [place] # Seg Neutrophils % Seg Neuts % (Manual) Lymphocytes % (Manual) Seg Neutrophils # Seg Neutrophils # Man Lymphocytes # (Manual) Monocytes # (Manual) POC ABG pH ABG pH POC ABG pCO2 POC ABG pO2 ABG pO2 ABG HCO3 ABG Base Excess ABG Hemoglobin Oxyhemoglobin Sodium Potassium Chloride Carbon Dioxide BUN Creatinine 0.5 L Glucose 116 H POC Glucose 110 H 126 H Calcium 7.7 L Phosphorus Magnesium Direct Bilirubin AST Alkaline Phosphatase C-Reactive Protein Serum Total Protein Total Protein Albumin Prealbumin Kjfdx-6-Niroayivp Xxftn-2-Qxkxlmntt Gamma Globulins PEP Interpretation Triglycerides Urine pH Urine Creatinine Urine Total Protein Vancomycin Trough Digoxin Crossmatch 10/22/19 10/22/19 10/23/19 18:36 23:19 04:39 WBC RBC Hgb Hct MCH MCHC RDW Plt Count Lymph % (Auto) [place] % (Auto) Lymph # [place] # Seg Neutrophils % Seg Neuts % (Manual) Lymphocytes % (Manual) Seg Neutrophils # Seg Neutrophils # Man Lymphocytes # (Manual) Monocytes # (Manual) POC ABG pH ABG pH POC ABG pCO2 POC ABG pO2 ABG pO2 ABG HCO3 ABG Base Excess ABG Hemoglobin Oxyhemoglobin Sodium Potassium Chloride Carbon Dioxide BUN Creatinine Glucose POC Glucose 120 H 127 H 112 H Calcium Phosphorus Magnesium Direct Bilirubin AST Alkaline Phosphatase C-Reactive Protein Serum Total Protein Total Protein Albumin Prealbumin Qvair-4-Uxdtnufxq Ovsgf-8-Wphygwfjh Gamma Globulins PEP Interpretation Triglycerides Urine pH Urine Creatinine Urine Total Protein Vancomycin Trough Digoxin Crossmatch 10/23/19 10/23/19 10/23/19 04:47 05:15 10:44 WBC 18.3 H RBC 2.33 L Hgb 7.0 L Hct 21.5 L MCH MCHC RDW 16.2 H Plt Count Lymph % (Auto) 4.9 L [place] % (Auto) 8.1 H Lymph # 0.9 L [place] # 1.5 H Seg Neutrophils % 86.7 H Seg Neuts % (Manual) Lymphocytes % (Manual) Seg Neutrophils # 15.9 H Seg Neutrophils # Man Lymphocytes # (Manual) Monocytes # (Manual) POC ABG pH ABG pH POC ABG pCO2 POC ABG pO2 ABG pO2 68.9 L ABG HCO3 28.7 H ABG Base Excess 3.4 H ABG Hemoglobin 6.6 L Oxyhemoglobin 94.1 L Sodium Potassium Chloride Carbon Dioxide BUN Creatinine 0.5 L Glucose 165 H POC Glucose Calcium 7.4 L Phosphorus Magnesium Direct Bilirubin AST Alkaline Phosphatase C-Reactive Protein Serum Total Protein Total Protein Albumin Prealbumin Rqbqx-4-Rowciewos Glqmw-4-Scbglrltv Gamma Globulins PEP Interpretation Triglycerides Urine pH Urine Creatinine Urine Total Protein Vancomycin Trough Digoxin Crossmatch 10/23/19 10/23/19 10/23/19 10:44 11:46 11:50 WBC RBC Hgb Hct MCH MCHC RDW Plt Count Lymph % (Auto) [place] % (Auto) Lymph # [place] # Seg Neutrophils % Seg Neuts % (Manual) Lymphocytes % (Manual) Seg Neutrophils # Seg Neutrophils # Man Lymphocytes # (Manual) Monocytes # (Manual) POC ABG pH ABG pH POC ABG pCO2 POC ABG pO2 ABG pO2 ABG HCO3 ABG Base Excess ABG Hemoglobin Oxyhemoglobin Sodium Potassium Chloride Carbon Dioxide BUN Creatinine Glucose POC Glucose 138 H Calcium Phosphorus Magnesium Direct Bilirubin 0.7 H AST Alkaline Phosphatase C-Reactive Protein Serum Total Protein Total Protein 4.5 L Albumin 1.2 L Prealbumin Cdoid-5-Chyccmpgp Vqtkk-2-Ajmustsec Gamma Globulins PEP Interpretation Triglycerides Urine pH Urine Creatinine Urine Total Protein Vancomycin Trough Digoxin Crossmatch See Detail 10/23/19 10/24/19 10/24/19 17:53 00:07 05:05 WBC RBC Hgb Hct MCH MCHC RDW Plt Count Lymph % (Auto) [place] % (Auto) Lymph # [place] # Seg Neutrophils % Seg Neuts % (Manual) Lymphocytes % (Manual) Seg Neutrophils # Seg Neutrophils # Man Lymphocytes # (Manual) Monocytes # (Manual) POC ABG pH ABG pH POC ABG pCO2 POC ABG pO2 ABG pO2 ABG HCO3 ABG Base Excess ABG Hemoglobin Oxyhemoglobin Sodium Potassium 3.5 L Chloride Carbon Dioxide BUN Creatinine 0.5 L Glucose 116 H POC Glucose 137 H 110 H Calcium 8.0 L Phosphorus Magnesium Direct Bilirubin AST Alkaline Phosphatase C-Reactive Protein Serum Total Protein Total Protein Albumin Prealbumin Lhejz-3-Vnqxkfwyh Omtsz-1-Ajzfkpywq Gamma Globulins PEP Interpretation Triglycerides Urine pH Urine Creatinine Urine Total Protein Vancomycin Trough Digoxin Crossmatch 10/24/19 10/24/19 10/24/19 05:05 11:56 13:00 WBC 13.0 H RBC 2.73 L Hgb 8.0 L Hct 24.2 L MCH MCHC RDW 17.9 H Plt Count Lymph % (Auto) 7.0 L [place] % (Auto) 9.5 H Lymph # 0.9 L [place] # 1.2 H Seg Neutrophils % 82.7 H Seg Neuts % (Manual) Lymphocytes % (Manual) Seg Neutrophils # 10.7 H Seg Neutrophils # Man Lymphocytes # (Manual) Monocytes # (Manual) POC ABG pH ABG pH POC ABG pCO2 POC ABG pO2 ABG pO2 ABG HCO3 ABG Base Excess ABG Hemoglobin Oxyhemoglobin Sodium Potassium Chloride Carbon Dioxide BUN Creatinine Glucose POC Glucose 159 H Calcium Phosphorus Magnesium Direct Bilirubin AST Alkaline Phosphatase C-Reactive Protein Serum Total Protein Total Protein Albumin Prealbumin Mamfs-8-Foqzbkerj Khacb-0-Wvvpyfupo Gamma Globulins PEP Interpretation Triglycerides 216 H Urine pH Urine Creatinine Urine Total Protein Vancomycin Trough Digoxin Crossmatch 10/24/19 10/24/19 10/25/19 17:42 23:45 04:19 WBC RBC Hgb Hct MCH MCHC RDW Plt Count Lymph % (Auto) [place] % (Auto) Lymph # [place] # Seg Neutrophils % Seg Neuts % (Manual) Lymphocytes % (Manual) Seg Neutrophils # Seg Neutrophils # Man Lymphocytes # (Manual) Monocytes # (Manual) POC ABG pH ABG pH POC ABG pCO2 POC ABG pO2 ABG pO2 ABG HCO3 ABG Base Excess ABG Hemoglobin Oxyhemoglobin Sodium 147 H Potassium Chloride Carbon Dioxide 33 H BUN Creatinine 0.5 L Glucose 111 H POC Glucose 120 H 116 H Calcium Phosphorus Magnesium Direct Bilirubin AST Alkaline Phosphatase C-Reactive Protein Serum Total Protein Total Protein 5.7 L D Albumin 2.5 L Prealbumin Prvle-3-Rqweqdawb Gppkx-2-Zkyhwshsx Gamma Globulins PEP Interpretation Triglycerides 230 H Urine pH Urine Creatinine Urine Total Protein Vancomycin Trough Digoxin Crossmatch 10/25/19 10/25/19 10/25/19 04:19 05:31 12:20 WBC RBC 2.69 L Hgb 8.1 L Hct 23.9 L MCH MCHC RDW 17.3 H Plt Count Lymph % (Auto) [place] % (Auto) Lymph # [place] # Seg Neutrophils % Seg Neuts % (Manual) Lymphocytes % (Manual) Seg Neutrophils # Seg Neutrophils # Man Lymphocytes # (Manual) Monocytes # (Manual) POC ABG pH ABG pH POC ABG pCO2 POC ABG pO2 ABG pO2 ABG HCO3 ABG Base Excess ABG Hemoglobin Oxyhemoglobin Sodium Potassium Chloride Carbon Dioxide BUN Creatinine Glucose POC Glucose 126 H 114 H Calcium Phosphorus Magnesium Direct Bilirubin AST Alkaline Phosphatase C-Reactive Protein Serum Total Protein Total Protein Albumin Prealbumin Wjwbs-8-Mmqjudadn Joazm-4-Zchvtqgfz Gamma Globulins PEP Interpretation Triglycerides Urine pH Urine Creatinine Urine Total Protein Vancomycin Trough Digoxin Crossmatch 10/25/19 10/25/19 10/26/19 18:30 23:09 06:15 WBC RBC Hgb Hct MCH MCHC RDW Plt Count Lymph % (Auto) [place] % (Auto) Lymph # [place] # Seg Neutrophils % Seg Neuts % (Manual) Lymphocytes % (Manual) Seg Neutrophils # Seg Neutrophils # Man Lymphocytes # (Manual) Monocytes # (Manual) POC ABG pH ABG pH POC ABG pCO2 POC ABG pO2 ABG pO2 ABG HCO3 ABG Base Excess ABG Hemoglobin Oxyhemoglobin Sodium Potassium 3.5 L Chloride Carbon Dioxide BUN Creatinine 0.5 L Glucose 112 H POC Glucose 121 H 107 H Calcium 8.3 L Phosphorus Magnesium Direct Bilirubin AST Alkaline Phosphatase 148 H C-Reactive Protein Serum Total Protein Total Protein 5.9 L Albumin 2.4 L Prealbumin Zykea-1-Cmzyxpafb Cilbj-5-Cxjgkfzbl Gamma Globulins PEP Interpretation Triglycerides Urine pH Urine Creatinine Urine Total Protein Vancomycin Trough Digoxin Crossmatch 1210/26/19 10/26/19 06:15 12:21 17:35 WBC RBC Hgb Hct MCH MCHC RDW Plt Count Lymph % (Auto) [place] % (Auto) Lymph # [place] # Seg Neutrophils % Seg Neuts % (Manual) Lymphocytes % (Manual) Seg Neutrophils # Seg Neutrophils # Man Lymphocytes # (Manual) Monocytes # (Manual) POC ABG pH ABG pH POC ABG pCO2 POC ABG pO2 ABG pO2 ABG HCO3 ABG Base Excess ABG Hemoglobin Oxyhemoglobin Sodium Potassium Chloride Carbon Dioxide BUN Creatinine Glucose POC Glucose 134 H 141 H Calcium Phosphorus Magnesium Direct Bilirubin AST Alkaline Phosphatase C-Reactive Protein Serum Total Protein Total Protein Albumin Prealbumin Ttgvj-6-Gufejejgm Oaylh-1-Crbnmykgc Gamma Globulins PEP Interpretation Triglycerides 185 H Urine pH Urine Creatinine Urine Total Protein Vancomycin Trough Digoxin Crossmatch 10/26/19 10/27/19 10/27/19 Unknown 04:30 11:33 WBC RBC Hgb Hct MCH MCHC RDW Plt Count Lymph % (Auto) [place] % (Auto) Lymph # [place] # Seg Neutrophils % Seg Neuts % (Manual) Lymphocytes % (Manual) Seg Neutrophils # Seg Neutrophils # Man Lymphocytes # (Manual) Monocytes # (Manual) POC ABG pH ABG pH POC ABG pCO2 POC ABG pO2 ABG pO2 ABG HCO3 ABG Base Excess ABG Hemoglobin Oxyhemoglobin Sodium Potassium 3.2 L Chloride Carbon Dioxide BUN 23 H Creatinine 0.6 L Glucose 130 H POC Glucose 131 H Calcium 7.9 L Phosphorus Magnesium Direct Bilirubin AST Alkaline Phosphatase C-Reactive Protein Serum Total Protein Total Protein Albumin Prealbumin Oavnp-6-Yjdgswiwr Ghorq-8-Bofqgfxgp Gamma Globulins PEP Interpretation Triglycerides Urine pH 9.0 H Urine Creatinine Urine Total Protein Vancomycin Trough Digoxin Crossmatch 10/27/19 10/28/19 10/28/19 17:45 05:25 05:49 WBC RBC 2.85 L Hgb 8.3 L Hct 26.8 L MCH MCHC 31 L RDW 17.4 H Plt Count Lymph % (Auto) 8.9 L [place] % (Auto) 14.3 H Lymph # 0.8 L [place] # 1.3 H Seg Neutrophils % 76.5 H Seg Neuts % (Manual) Lymphocytes % (Manual) Seg Neutrophils # Seg Neutrophils # Man Lymphocytes # (Manual) Monocytes # (Manual) POC ABG pH ABG pH POC ABG pCO2 POC ABG pO2 ABG pO2 ABG HCO3 ABG Base Excess ABG Hemoglobin Oxyhemoglobin Sodium Potassium Chloride Carbon Dioxide BUN Creatinine Glucose POC Glucose 121 H 120 H Calcium Phosphorus Magnesium Direct Bilirubin AST Alkaline Phosphatase C-Reactive Protein Serum Total Protein Total Protein Albumin Prealbumin Axaub-0-Ubucbrahl Ijtxk-9-Tdspmffyj Gamma Globulins PEP Interpretation Triglycerides Urine pH Urine Creatinine Urine Total Protein Vancomycin Trough Digoxin Crossmatch 10/28/19 10/28/19 10/28/19 07:19 12:07 18:21 WBC RBC Hgb Hct MCH MCHC RDW Plt Count Lymph % (Auto) [place] % (Auto) Lymph # [place] # Seg Neutrophils % Seg Neuts % (Manual) Lymphocytes % (Manual) Seg Neutrophils # Seg Neutrophils # Man Lymphocytes # (Manual) Monocytes # (Manual) POC ABG pH ABG pH POC ABG pCO2 POC ABG pO2 ABG pO2 ABG HCO3 ABG Base Excess ABG Hemoglobin Oxyhemoglobin Sodium Potassium Chloride Carbon Dioxide BUN 23 H Creatinine 0.5 L Glucose 129 H POC Glucose 127 H 130 H Calcium 8.0 L Phosphorus Magnesium Direct Bilirubin AST Alkaline Phosphatase C-Reactive Protein Serum Total Protein Total Protein Albumin Prealbumin Wceia-0-Debppeqwx Xvqvv-3-Lnrccufkk Gamma Globulins PEP Interpretation Triglycerides Urine pH Urine Creatinine Urine Total Protein Vancomycin Trough Digoxin Crossmatch 10/28/19 10/29/19 10/29/19 23:30 05:30 05:30 WBC 11.2 H RBC 3.36 L Hgb 9.7 L Hct 29.4 L MCH MCHC RDW 16.7 H Plt Count Lymph % (Auto) [place] % (Auto) 16.0 H Lymph # [place] # 1.8 H Seg Neutrophils % 70.2 H Seg Neuts % (Manual) Lymphocytes % (Manual) Seg Neutrophils # 7.9 H Seg Neutrophils # Man Lymphocytes # (Manual) Monocytes # (Manual) POC ABG pH ABG pH POC ABG pCO2 POC ABG pO2 ABG pO2 ABG HCO3 ABG Base Excess ABG Hemoglobin Oxyhemoglobin Sodium Potassium Chloride Carbon Dioxide BUN 23 H Creatinine 0.5 L Glucose POC Glucose 130 H Calcium 8.3 L Phosphorus Magnesium Direct Bilirubin AST Alkaline Phosphatase C-Reactive Protein Serum Total Protein Total Protein Albumin Prealbumin Fbrau-0-Vqlcxhfbv Ljwbw-4-Uqsxutada Gamma Globulins PEP Interpretation Triglycerides Urine pH Urine Creatinine Urine Total Protein Vancomycin Trough Digoxin Crossmatch 10/29/19 10/29/19 10/29/19 05:52 13:10 18:02 WBC RBC Hgb Hct MCH MCHC RDW Plt Count Lymph % (Auto) [place] % (Auto) Lymph # [place] # Seg Neutrophils % Seg Neuts % (Manual) Lymphocytes % (Manual) Seg Neutrophils # Seg Neutrophils # Man Lymphocytes # (Manual) Monocytes # (Manual) POC ABG pH ABG pH POC ABG pCO2 POC ABG pO2 ABG pO2 ABG HCO3 ABG Base Excess ABG Hemoglobin Oxyhemoglobin Sodium Potassium Chloride Carbon Dioxide BUN Creatinine Glucose POC Glucose 111 H 140 H 140 H Calcium Phosphorus Magnesium Direct Bilirubin AST Alkaline Phosphatase C-Reactive Protein Serum Total Protein Total Protein Albumin Prealbumin Olqgm-3-Dusetotxj Ltnjl-2-Rntpjghew Gamma Globulins PEP Interpretation Triglycerides Urine pH Urine Creatinine Urine Total Protein Vancomycin Trough Digoxin Crossmatch 10/29/19 10/30/19 10/30/19 23:58 01:05 05:15 WBC RBC Hgb Hct MCH MCHC RDW Plt Count Lymph % (Auto) [place] % (Auto) Lymph # [place] # Seg Neutrophils % Seg Neuts % (Manual) Lymphocytes % (Manual) Seg Neutrophils # Seg Neutrophils # Man Lymphocytes # (Manual) Monocytes # (Manual) POC ABG pH ABG pH POC ABG pCO2 62.0 H POC ABG pO2 168 H ABG pO2 ABG HCO3 ABG Base Excess ABG Hemoglobin Oxyhemoglobin Sodium 147 H Potassium Chloride 107.8 H Carbon Dioxide BUN 26 H Creatinine 0.5 L Glucose 139 H POC Glucose 161 H Calcium Phosphorus Magnesium 2.40 H Direct Bilirubin AST Alkaline Phosphatase C-Reactive Protein Serum Total Protein Total Protein Albumin Prealbumin Lvtsx-8-Qhrggwcks Ftrfp-2-Boczraooe Gamma Globulins PEP Interpretation Triglycerides Urine pH Urine Creatinine Urine Total Protein Vancomycin Trough Digoxin Crossmatch 10/30/19 10/30/19 10/30/19 05:15 06:32 09:44 WBC 13.8 H RBC 3.59 L Hgb 10.1 L Hct 32.4 L MCH MCHC 31 L RDW 17.4 H Plt Count Lymph % (Auto) 11.2 L [place] % (Auto) 13.6 H Lymph # [place] # 1.9 H Seg Neutrophils % 75.1 H Seg Neuts % (Manual) Lymphocytes % (Manual) Seg Neutrophils # 10.4 H Seg Neutrophils # Man Lymphocytes # (Manual) Monocytes # (Manual) POC ABG pH ABG pH POC ABG pCO2 51.7 H POC ABG pO2 111 H ABG pO2 ABG HCO3 ABG Base Excess ABG Hemoglobin Oxyhemoglobin Sodium Potassium Chloride Carbon Dioxide BUN Creatinine Glucose POC Glucose 141 H Calcium Phosphorus Magnesium Direct Bilirubin AST Alkaline Phosphatase C-Reactive Protein Serum Total Protein Total Protein Albumin Prealbumin Gpjlz-4-Hnbjsttfm Kozwn-8-Icxlqlxbs Gamma Globulins PEP Interpretation Triglycerides Urine pH Urine Creatinine Urine Total Protein Vancomycin Trough Digoxin Crossmatch 10/30/19 10/31/19 10/31/19 18:10 04:18 04:18 WBC 11.7 H RBC 3.11 L Hgb 9.0 L Hct 27.9 L MCH MCHC RDW 17.1 H Plt Count Lymph % (Auto) [place] % (Auto) Lymph # [place] # Seg Neutrophils % Seg Neuts % (Manual) Lymphocytes % (Manual) Seg Neutrophils # Seg Neutrophils # Man Lymphocytes # (Manual) Monocytes # (Manual) POC ABG pH ABG pH POC ABG pCO2 POC ABG pO2 ABG pO2 ABG HCO3 ABG Base Excess ABG Hemoglobin Oxyhemoglobin Sodium 148 H Potassium Chloride 108.7 H Carbon Dioxide BUN 37 H Creatinine 0.7 L Glucose 102 H POC Glucose 131 H Calcium Phosphorus Magnesium Direct Bilirubin AST Alkaline Phosphatase C-Reactive Protein Serum Total Protein Total Protein Albumin Prealbumin Lmihw-4-Rowhqjtjr Pmalz-7-Brljnxzut Gamma Globulins PEP Interpretation Triglycerides Urine pH Urine Creatinine Urine Total Protein Vancomycin Trough Digoxin Crossmatch 10/31/19 10/31/19 10/31/19 11:32 12:55 18:10 WBC RBC Hgb Hct MCH MCHC RDW Plt Count Lymph % (Auto) [place] % (Auto) Lymph # [place] # Seg Neutrophils % Seg Neuts % (Manual) Lymphocytes % (Manual) Seg Neutrophils # Seg Neutrophils # Man Lymphocytes # (Manual) Monocytes # (Manual) POC ABG pH ABG pH POC ABG pCO2 57.9 H POC ABG pO2 135 H ABG pO2 ABG HCO3 ABG Base Excess ABG Hemoglobin Oxyhemoglobin Sodium Potassium Chloride Carbon Dioxide BUN Creatinine Glucose POC Glucose 120 H Calcium Phosphorus Magnesium Direct Bilirubin AST Alkaline Phosphatase C-Reactive Protein Serum Total Protein Total Protein Albumin Prealbumin Igbuy-2-Aimjcbsfs Yquyj-9-Pslbuiymu Gamma Globulins PEP Interpretation Triglycerides Urine pH Urine Creatinine Urine Total Protein Vancomycin Trough 41.7 H Digoxin Crossmatch 10/31/19 11/01/19 11/01/19 23:08 05:30 05:30 WBC 14.6 H RBC 3.13 L Hgb 8.9 L Hct 27.7 L MCH MCHC RDW 17.0 H Plt Count Lymph % (Auto) [place] % (Auto) Lymph # [place] # Seg Neutrophils % Seg Neuts % (Manual) Lymphocytes % (Manual) Seg Neutrophils # Seg Neutrophils # Man Lymphocytes # (Manual) Monocytes # (Manual) POC ABG pH ABG pH POC ABG pCO2 POC ABG pO2 ABG pO2 ABG HCO3 ABG Base Excess ABG Hemoglobin Oxyhemoglobin Sodium 149 H Potassium Chloride 109.0 H Carbon Dioxide BUN 26 H Creatinine 0.7 L Glucose 129 H POC Glucose 109 H Calcium Phosphorus Magnesium Direct Bilirubin AST Alkaline Phosphatase C-Reactive Protein Serum Total Protein Total Protein Albumin Prealbumin Lnyfj-8-Ujvopvklc Xusdx-9-Mntjdtgtz Gamma Globulins PEP Interpretation Triglycerides Urine pH Urine Creatinine Urine Total Protein Vancomycin Trough Digoxin Crossmatch 11/01/19 11/01/19 11/01/19 06:09 06:10 11:52 WBC RBC Hgb Hct MCH MCHC RDW Plt Count Lymph % (Auto) [place] % (Auto) Lymph # [place] # Seg Neutrophils % Seg Neuts % (Manual) Lymphocytes % (Manual) Seg Neutrophils # Seg Neutrophils # Man Lymphocytes # (Manual) Monocytes # (Manual) POC ABG pH ABG pH POC ABG pCO2 51.3 H POC ABG pO2 71 L ABG pO2 ABG HCO3 ABG Base Excess ABG Hemoglobin Oxyhemoglobin Sodium Potassium Chloride Carbon Dioxide BUN Creatinine Glucose POC Glucose 113 H 106 H Calcium Phosphorus Magnesium Direct Bilirubin AST Alkaline Phosphatase C-Reactive Protein Serum Total Protein Total Protein Albumin Prealbumin Nxxhw-8-Ufqrclqyv Upvzo-6-Pcdjuogip Gamma Globulins PEP Interpretation Triglycerides Urine pH Urine Creatinine Urine Total Protein Vancomycin Trough Digoxin Crossmatch 11/01/19 11/02/19 11/02/19 18:18 03:40 03:40 WBC RBC 2.36 L Hgb 7.2 L Hct 20.8 L D MCH MCHC 35 H RDW 16.8 H Plt Count Lymph % (Auto) [place] % (Auto) Lymph # [place] # Seg Neutrophils % Seg Neuts % (Manual) Lymphocytes % (Manual) Seg Neutrophils # Seg Neutrophils # Man Lymphocytes # (Manual) Monocytes # (Manual) POC ABG pH ABG pH POC ABG pCO2 POC ABG pO2 ABG pO2 ABG HCO3 ABG Base Excess ABG Hemoglobin Oxyhemoglobin Sodium 157 H D Potassium 3.0 L D Chloride 117.2 H Carbon Dioxide BUN 23 H Creatinine 0.6 L Glucose 101 H POC Glucose 120 H Calcium 6.4 L D Phosphorus Magnesium Direct Bilirubin AST Alkaline Phosphatase C-Reactive Protein Serum Total Protein Total Protein Albumin Prealbumin Oufkw-3-Purxnzdjl Tuamy-5-Uolbdmheh Gamma Globulins PEP Interpretation Triglycerides Urine pH Urine Creatinine Urine Total Protein Vancomycin Trough Digoxin Crossmatch 11/02/19 11/02/19 11/02/19 04:48 05:30 12:43 WBC RBC Hgb Hct MCH MCHC RDW Plt Count Lymph % (Auto) [place] % (Auto) Lymph # [place] # Seg Neutrophils % Seg Neuts % (Manual) Lymphocytes % (Manual) Seg Neutrophils # Seg Neutrophils # Man Lymphocytes # (Manual) Monocytes # (Manual) POC ABG pH ABG pH POC ABG pCO2 50.1 H POC ABG pO2 74 L ABG pO2 ABG HCO3 ABG Base Excess ABG Hemoglobin Oxyhemoglobin Sodium 149 H D Potassium Chloride 110.0 H Carbon Dioxide BUN 23 H Creatinine 0.6 L Glucose POC Glucose 109 H Calcium 8.1 L D Phosphorus Magnesium 2.40 H Direct Bilirubin AST Alkaline Phosphatase C-Reactive Protein Serum Total Protein Total Protein Albumin Prealbumin Vxrkl-6-Ensxnyeyp Zlsew-6-Zttgwtssp Gamma Globulins PEP Interpretation Triglycerides Urine pH Urine Creatinine Urine Total Protein Vancomycin Trough Digoxin Crossmatch 11/03/19 11/03/19 11/03/19 03:42 03:42 04:13 WBC RBC 2.93 L Hgb 8.5 L Hct 25.8 L MCH MCHC RDW 16.9 H Plt Count Lymph % (Auto) [place] % (Auto) Lymph # [place] # Seg Neutrophils % Seg Neuts % (Manual) Lymphocytes % (Manual) Seg Neutrophils # Seg Neutrophils # Man Lymphocytes # (Manual) Monocytes # (Manual) POC ABG pH 7.540 H ABG pH POC ABG pCO2 POC ABG pO2 51 L ABG pO2 ABG HCO3 ABG Base Excess ABG Hemoglobin Oxyhemoglobin Sodium 147 H Potassium 3.5 L D Chloride 108.6 H Carbon Dioxide BUN Creatinine 0.6 L Glucose 109 H POC Glucose Calcium 8.3 L Phosphorus Magnesium Direct Bilirubin AST Alkaline Phosphatase C-Reactive Protein Serum Total Protein Total Protein Albumin Prealbumin Gqqde-6-Ntanoienl Ehrcu-8-Czwpkomtm Gamma Globulins PEP Interpretation Triglycerides Urine pH Urine Creatinine Urine Total Protein Vancomycin Trough Digoxin Crossmatch 11/03/19 11/03/19 11/03/19 04:28 12:04 23:02 WBC RBC Hgb Hct MCH MCHC RDW Plt Count Lymph % (Auto) [place] % (Auto) Lymph # [place] # Seg Neutrophils % Seg Neuts % (Manual) Lymphocytes % (Manual) Seg Neutrophils # Seg Neutrophils # Man Lymphocytes # (Manual) Monocytes # (Manual) POC ABG pH ABG pH POC ABG pCO2 45.4 H POC ABG pO2 ABG pO2 ABG HCO3 ABG Base Excess ABG Hemoglobin Oxyhemoglobin Sodium Potassium Chloride Carbon Dioxide BUN Creatinine Glucose POC Glucose 109 H 111 H Calcium Phosphorus Magnesium Direct Bilirubin AST Alkaline Phosphatase C-Reactive Protein Serum Total Protein Total Protein Albumin Prealbumin Hdmkj-9-Azqrihbne Dubaw-7-Nvwlywsps Gamma Globulins PEP Interpretation Triglycerides Urine pH Urine Creatinine Urine Total Protein Vancomycin Trough Digoxin Crossmatch 11/04/19 11/04/19 11/04/19 05:00 05:00 05:19 WBC RBC 2.96 L Hgb 8.6 L Hct 25.5 L MCH MCHC RDW 16.7 H Plt Count Lymph % (Auto) [place] % (Auto) Lymph # [place] # Seg Neutrophils % Seg Neuts % (Manual) Lymphocytes % (Manual) Seg Neutrophils # Seg Neutrophils # Man Lymphocytes # (Manual) Monocytes # (Manual) POC ABG pH ABG pH POC ABG pCO2 POC ABG pO2 ABG pO2 ABG HCO3 ABG Base Excess ABG Hemoglobin Oxyhemoglobin Sodium Potassium 3.5 L Chloride Carbon Dioxide BUN Creatinine 0.5 L Glucose 111 H POC Glucose 106 H Calcium 8.1 L Phosphorus Magnesium Direct Bilirubin AST Alkaline Phosphatase C-Reactive Protein Serum Total Protein Total Protein Albumin Prealbumin Edlme-5-Ehpbuvhkz Mcnva-5-Ozvizsgfl Gamma Globulins PEP Interpretation Triglycerides Urine pH Urine Creatinine Urine Total Protein Vancomycin Trough Digoxin Crossmatch 11/04/19 11/05/19 11/05/19 12:40 00:28 04:19 WBC 12.4 H RBC 2.98 L Hgb 8.5 L Hct 25.5 L MCH MCHC RDW 16.6 H Plt Count Lymph % (Auto) [place] % (Auto) Lymph # [place] # Seg Neutrophils % Seg Neuts % (Manual) Lymphocytes % (Manual) Seg Neutrophils # Seg Neutrophils # Man Lymphocytes # (Manual) Monocytes # (Manual) POC ABG pH ABG pH POC ABG pCO2 POC ABG pO2 ABG pO2 ABG HCO3 ABG Base Excess ABG Hemoglobin Oxyhemoglobin Sodium Potassium Chloride Carbon Dioxide BUN Creatinine Glucose POC Glucose 109 H 132 H Calcium Phosphorus Magnesium Direct Bilirubin AST Alkaline Phosphatase C-Reactive Protein Serum Total Protein Total Protein Albumin Prealbumin Aihlp-2-Wkwhjmibl Wcsba-1-Tlafygcan Gamma Globulins PEP Interpretation Triglycerides Urine pH Urine Creatinine Urine Total Protein Vancomycin Trough Digoxin Crossmatch 11/05/19 11/05/19 11/05/19 04:19 05:40 13:14 WBC RBC Hgb Hct MCH MCHC RDW Plt Count Lymph % (Auto) [place] % (Auto) Lymph # [place] # Seg Neutrophils % Seg Neuts % (Manual) Lymphocytes % (Manual) Seg Neutrophils # Seg Neutrophils # Man Lymphocytes # (Manual) Monocytes # (Manual) POC ABG pH ABG pH POC ABG pCO2 POC ABG pO2 ABG pO2 ABG HCO3 ABG Base Excess ABG Hemoglobin Oxyhemoglobin Sodium Potassium 3.4 L Chloride Carbon Dioxide BUN Creatinine 0.4 L Glucose 106 H POC Glucose 136 H 145 H Calcium 8.2 L Phosphorus Magnesium Direct Bilirubin AST Alkaline Phosphatase C-Reactive Protein Serum Total Protein Total Protein Albumin Prealbumin Glipb-9-Dpqxiuqzi Caoki-3-Kahauofij Gamma Globulins PEP Interpretation Triglycerides Urine pH Urine Creatinine Urine Total Protein Vancomycin Trough Digoxin Crossmatch 11/05/19 11/05/19 11/06/19 18:29 23:42 05:00 WBC 12.2 H RBC 2.89 L Hgb 8.2 L Hct 24.9 L MCH MCHC RDW 16.4 H Plt Count Lymph % (Auto) [place] % (Auto) Lymph # [place] # Seg Neutrophils % Seg Neuts % (Manual) Lymphocytes % (Manual) Seg Neutrophils # Seg Neutrophils # Man Lymphocytes # (Manual) Monocytes # (Manual) POC ABG pH ABG pH POC ABG pCO2 POC ABG pO2 ABG pO2 ABG HCO3 ABG Base Excess ABG Hemoglobin Oxyhemoglobin Sodium Potassium Chloride Carbon Dioxide BUN Creatinine Glucose POC Glucose 138 H 117 H Calcium Phosphorus Magnesium Direct Bilirubin AST Alkaline Phosphatase C-Reactive Protein Serum Total Protein Total Protein Albumin Prealbumin Vufnx-5-Lykkwjsup Uxcsl-9-Enlkxcjrt Gamma Globulins PEP Interpretation Triglycerides Urine pH Urine Creatinine Urine Total Protein Vancomycin Trough Digoxin Crossmatch 11/06/19 11/06/19 11/06/19 05:00 05:22 17:39 WBC RBC Hgb Hct MCH MCHC RDW Plt Count Lymph % (Auto) [place] % (Auto) Lymph # [place] # Seg Neutrophils % Seg Neuts % (Manual) Lymphocytes % (Manual) Seg Neutrophils # Seg Neutrophils # Man Lymphocytes # (Manual) Monocytes # (Manual) POC ABG pH ABG pH POC ABG pCO2 POC ABG pO2 ABG pO2 ABG HCO3 ABG Base Excess ABG Hemoglobin Oxyhemoglobin Sodium Potassium Chloride Carbon Dioxide BUN Creatinine 0.4 L Glucose 114 H POC Glucose 121 H 110 H Calcium 8.2 L Phosphorus Magnesium Direct Bilirubin AST Alkaline Phosphatase C-Reactive Protein Serum Total Protein Total Protein Albumin Prealbumin Iinhx-3-Bwhzjgukm Qxney-6-Dmozvqvgq Gamma Globulins PEP Interpretation Triglycerides Urine pH Urine Creatinine Urine Total Protein Vancomycin Trough Digoxin Crossmatch 11/06/19 11/07/19 11/07/19 23:29 04:06 04:06 WBC 13.0 H RBC 2.80 L Hgb 7.9 L Hct 24.0 L MCH MCHC RDW 16.5 H Plt Count Lymph % (Auto) 7.0 L [place] % (Auto) Lymph # 0.9 L [place] # Seg Neutrophils % 86.3 H Seg Neuts % (Manual) Lymphocytes % (Manual) Seg Neutrophils # 11.2 H Seg Neutrophils # Man Lymphocytes # (Manual) Monocytes # (Manual) POC ABG pH ABG pH POC ABG pCO2 POC ABG pO2 ABG pO2 ABG HCO3 ABG Base Excess ABG Hemoglobin Oxyhemoglobin Sodium Potassium Chloride Carbon Dioxide BUN Creatinine 0.4 L Glucose 110 H POC Glucose 113 H Calcium 8.2 L Phosphorus Magnesium Direct Bilirubin AST Alkaline Phosphatase C-Reactive Protein Serum Total Protein Total Protein Albumin Prealbumin Lveak-0-Mjnchtdzc Nlfmu-4-Oodnotmqn Gamma Globulins PEP Interpretation Triglycerides Urine pH Urine Creatinine Urine Total Protein Vancomycin Trough Digoxin Crossmatch 11/07/19 11/07/19 11/07/19 05:43 12:47 18:19 WBC RBC Hgb Hct MCH MCHC RDW Plt Count Lymph % (Auto) [place] % (Auto) Lymph # [place] # Seg Neutrophils % Seg Neuts % (Manual) Lymphocytes % (Manual) Seg Neutrophils # Seg Neutrophils # Man Lymphocytes # (Manual) Monocytes # (Manual) POC ABG pH ABG pH POC ABG pCO2 POC ABG pO2 ABG pO2 ABG HCO3 ABG Base Excess ABG Hemoglobin Oxyhemoglobin Sodium Potassium Chloride Carbon Dioxide BUN Creatinine Glucose POC Glucose 114 H 120 H 112 H Calcium Phosphorus Magnesium Direct Bilirubin AST Alkaline Phosphatase C-Reactive Protein Serum Total Protein Total Protein Albumin Prealbumin Ldzpp-5-Dgkwqiecj Hdeyw-5-Pdtiuyqmw Gamma Globulins PEP Interpretation Triglycerides Urine pH Urine Creatinine Urine Total Protein Vancomycin Trough Digoxin Crossmatch 11/08/19 11/08/19 11/08/19 03:45 03:45 11:43 WBC 12.7 H RBC 2.82 L Hgb 7.8 L Hct 24.4 L MCH MCHC RDW 16.5 H Plt Count Lymph % (Auto) 9.4 L [place] % (Auto) Lymph # [place] # 0.9 H Seg Neutrophils % 83.0 H Seg Neuts % (Manual) Lymphocytes % (Manual) Seg Neutrophils # 10.6 H Seg Neutrophils # Man Lymphocytes # (Manual) Monocytes # (Manual) POC ABG pH ABG pH POC ABG pCO2 POC ABG pO2 ABG pO2 ABG HCO3 ABG Base Excess ABG Hemoglobin Oxyhemoglobin Sodium Potassium Chloride Carbon Dioxide BUN Creatinine 0.4 L Glucose 107 H POC Glucose 118 H Calcium Phosphorus Magnesium Direct Bilirubin AST Alkaline Phosphatase C-Reactive Protein Serum Total Protein Total Protein Albumin Prealbumin Ejpnx-4-Tabgaxxop Gscnw-5-Njhgzzwwb Gamma Globulins PEP Interpretation Triglycerides Urine pH Urine Creatinine Urine Total Protein Vancomycin Trough Digoxin Crossmatch 11/08/19 11/09/19 11/09/19 23:45 12:41 12:56 WBC RBC Hgb Hct MCH MCHC RDW Plt Count Lymph % (Auto) [place] % (Auto) Lymph # [place] # Seg Neutrophils % Seg Neuts % (Manual) Lymphocytes % (Manual) Seg Neutrophils # Seg Neutrophils # Man Lymphocytes # (Manual) Monocytes # (Manual) POC ABG pH ABG pH POC ABG pCO2 POC ABG pO2 ABG pO2 ABG HCO3 ABG Base Excess ABG Hemoglobin Oxyhemoglobin Sodium Potassium Chloride Carbon Dioxide BUN Creatinine Glucose POC Glucose 113 H 107 H 122 H Calcium Phosphorus Magnesium Direct Bilirubin AST Alkaline Phosphatase C-Reactive Protein Serum Total Protein Total Protein Albumin Prealbumin Ylnmk-0-Bhhjqlevr Qdbnr-0-Vtdznolxv Gamma Globulins PEP Interpretation Triglycerides Urine pH Urine Creatinine Urine Total Protein Vancomycin Trough Digoxin Crossmatch 11/10/19 11/10/19 11/11/19 05:12 12:20 12:13 WBC RBC Hgb Hct MCH MCHC RDW Plt Count Lymph % (Auto) [place] % (Auto) Lymph # [place] # Seg Neutrophils % Seg Neuts % (Manual) Lymphocytes % (Manual) Seg Neutrophils # Seg Neutrophils # Man Lymphocytes # (Manual) Monocytes # (Manual) POC ABG pH ABG pH POC ABG pCO2 POC ABG pO2 ABG pO2 ABG HCO3 ABG Base Excess ABG Hemoglobin Oxyhemoglobin Sodium Potassium Chloride Carbon Dioxide BUN Creatinine Glucose POC Glucose 127 H 125 H 107 H Calcium Phosphorus Magnesium Direct Bilirubin AST Alkaline Phosphatase C-Reactive Protein Serum Total Protein Total Protein Albumin Prealbumin Fzorj-2-Vbswhgrls Dcyus-8-Zsvqceafg Gamma Globulins PEP Interpretation Triglycerides Urine pH Urine Creatinine Urine Total Protein Vancomycin Trough Digoxin Crossmatch 11/11/19 11/11/19 11/12/19 17:29 22:20 06:00 WBC RBC 2.77 L Hgb 7.8 L Hct 23.4 L MCH MCHC RDW 16.6 H Plt Count Lymph % (Auto) 11.9 L [place] % (Auto) 8.9 H Lymph # [place] # 0.9 H Seg Neutrophils % 78.2 H Seg Neuts % (Manual) Lymphocytes % (Manual) Seg Neutrophils # 8.2 H Seg Neutrophils # Man Lymphocytes # (Manual) Monocytes # (Manual) POC ABG pH ABG pH POC ABG pCO2 POC ABG pO2 ABG pO2 ABG HCO3 ABG Base Excess ABG Hemoglobin Oxyhemoglobin Sodium Potassium Chloride Carbon Dioxide BUN Creatinine Glucose POC Glucose 120 H 109 H Calcium Phosphorus Magnesium Direct Bilirubin AST Alkaline Phosphatase C-Reactive Protein Serum Total Protein Total Protein Albumin Prealbumin Jluhm-8-Jwhtlooek Ngyjk-0-Tlnnannqh Gamma Globulins PEP Interpretation Triglycerides Urine pH Urine Creatinine Urine Total Protein Vancomycin Trough Digoxin Crossmatch 11/12/19 11/12/19 11/12/19 07:52 11:58 23:44 WBC RBC Hgb Hct MCH MCHC RDW Plt Count Lymph % (Auto) [place] % (Auto) Lymph # [place] # Seg Neutrophils % Seg Neuts % (Manual) Lymphocytes % (Manual) Seg Neutrophils # Seg Neutrophils # Man Lymphocytes # (Manual) Monocytes # (Manual) POC ABG pH ABG pH POC ABG pCO2 POC ABG pO2 ABG pO2 ABG HCO3 ABG Base Excess ABG Hemoglobin Oxyhemoglobin Sodium Potassium Chloride Carbon Dioxide BUN Creatinine Glucose POC Glucose 120 H 140 H 116 H Calcium Phosphorus Magnesium Direct Bilirubin AST Alkaline Phosphatase C-Reactive Protein Serum Total Protein Total Protein Albumin Prealbumin Xfhlt-3-Llbxqgpld Qynvh-8-Csquqyxti Gamma Globulins PEP Interpretation Triglycerides Urine pH Urine Creatinine Urine Total Protein Vancomycin Trough Digoxin Crossmatch 11/13/19 11/13/19 11/13/19 04:33 04:33 13:43 WBC 11.2 H RBC 2.90 L Hgb 8.1 L Hct 24.5 L MCH MCHC RDW 16.5 H Plt Count Lymph % (Auto) 10.1 L [place] % (Auto) 7.6 H Lymph # 1.1 L [place] # 0.9 H Seg Neutrophils % 81.1 H Seg Neuts % (Manual) Lymphocytes % (Manual) Seg Neutrophils # 9.1 H Seg Neutrophils # Man Lymphocytes # (Manual) Monocytes # (Manual) POC ABG pH ABG pH POC ABG pCO2 POC ABG pO2 ABG pO2 ABG HCO3 ABG Base Excess ABG Hemoglobin Oxyhemoglobin Sodium 135 L Potassium Chloride 91.9 L Carbon Dioxide BUN Creatinine 0.6 L Glucose POC Glucose 122 H Calcium Phosphorus Magnesium Direct Bilirubin AST Alkaline Phosphatase C-Reactive Protein Serum Total Protein Total Protein Albumin Prealbumin Bndgs-3-Dwzjalkem Ftvfg-0-Jgofotgok Gamma Globulins PEP Interpretation Triglycerides Urine pH Urine Creatinine Urine Total Protein Vancomycin Trough Digoxin Crossmatch 11/13/19 11/14/19 11/15/19 17:57 12:35 07:10 WBC 14.8 H RBC 2.89 L Hgb 7.8 L Hct 24.2 L MCH 27 L MCHC RDW 16.9 H Plt Count Lymph % (Auto) [place] % (Auto) Lymph # [place] # Seg Neutrophils % Seg Neuts % (Manual) Lymphocytes % (Manual) Seg Neutrophils # Seg Neutrophils # Man Lymphocytes # (Manual) Monocytes # (Manual) POC ABG pH ABG pH POC ABG pCO2 POC ABG pO2 ABG pO2 ABG HCO3 ABG Base Excess ABG Hemoglobin Oxyhemoglobin Sodium Potassium Chloride Carbon Dioxide BUN Creatinine Glucose POC Glucose 127 H 148 H Calcium Phosphorus Magnesium Direct Bilirubin AST Alkaline Phosphatase C-Reactive Protein Serum Total Protein Total Protein Albumin Prealbumin Dejqa-1-Gnxuugwwg Xszgz-9-Ousvwvlwj Gamma Globulins PEP Interpretation Triglycerides Urine pH Urine Creatinine Urine Total Protein Vancomycin Trough Digoxin Crossmatch 11/15/19 07:10 WBC RBC Hgb Hct MCH MCHC RDW Plt Count Lymph % (Auto) [place] % (Auto) Lymph # [place] # Seg Neutrophils % Seg Neuts % (Manual) Lymphocytes % (Manual) Seg Neutrophils # Seg Neutrophils # Man Lymphocytes # (Manual) Monocytes # (Manual) POC ABG pH ABG pH POC ABG pCO2 POC ABG pO2 ABG pO2 ABG HCO3 ABG Base Excess ABG Hemoglobin Oxyhemoglobin Sodium 133 L Potassium Chloride 93.7 L Carbon Dioxide BUN Creatinine 0.6 L Glucose POC Glucose Calcium Phosphorus Magnesium Direct Bilirubin AST Alkaline Phosphatase C-Reactive Protein Serum Total Protein Total Protein Albumin Prealbumin Vnfst-9-Ryitflxcb Jzikt-3-Rbskhcpxe Gamma Globulins PEP Interpretation Triglycerides Urine pH Urine Creatinine Urine Total Protein Vancomycin Trough Digoxin Crossmatch
--- NOTE | 2019-11-15 18:17 | Progress Note ---
Assessment and Plan Assessment and plan: Sepsis, improved. Abx per ID. Enterococcus on cultures. If patient has worsening labs/vitals, then rescan and place additional drains as appropriate. ID plans trial off antibiotics. Dehiscence of closure of fascia s/p ex lap with closure of abdominal wall and wound vac placement (10/05) - POD#37; s/p Re-exploration, washout, transection of colon, Abthera placement - 10/13 - POD#29; s/p abd washout, partial omentectomy, partial colectomy with colostomy - 10/16 POD#26. s/p abd washout, feeding tube placement, AbThera placement - 10/19 - POD#23; Abdominal washout and closure - 10/22 - POD#20 Acute Respiratory failure with hypoxia -Extubated 10/25/19 -Re-intubated 10/30 -Patient self extubated morning of 11/04, now on Oxygen by CT -[employer] Officer following -Multifactorial secondary to pneumonia, pneumothorax and COPD Sepsis On Merrem, Micafungin ID Physician following right sump drain fell out Surgeon following Left pneumothorax s/p chest tube placed 10/30 Resolved. Left lower lobe pneumonia -CTA chest showed left lower lobe consolidation with pleural effusion COPD -Stable -cont neb tx GUILLERMO on CKD -due to ATN due to sepsis -Resolved. Recheck BMP in a.m. -No hydronephrosis on CT Severe Metabolic acidosis -Improved Acute Toxic Metabolic Encephalopathy/Delirium Tremens. Resolved. -Continue CIWA protocol due to hx of ETOH abuse, 6packs a day -Head CT scan negative for acute findings Acute blood loss anemia -H/H stable -Continue to monitor H&H and transfuse for hb<7 SVT, Atrial fib/flutter with RVR -treated with adenosine x1 -off amiodarone and cardizem drip. On oral amiodarone -HR currently controlled -Cardiology following Hx of Hypertension -Stable Hyperlipidemia -stable Atypical chest pain -probably secondary to pneumonitis -troponin levels neg Hx of VA/CAD -s/p PCI of the circumflex and second vessel POBA of the distal LAD occlusion. Left ventricle fraction of 45-50%. Morbid obesity with BMI of 43.4 -Lifestyle modification recommended Moderate Protein calorie malnutrition secondary to surgery -On TPN -Nutrition following Tobacco abuse -Cessation recommended Morbid obesity with BMI of 43.4 -Lifestyle modification recommended DVT and GI ppx: Lovenox/PPI He feels better. Plan is to discharge to acute rehab when accepted History Interval history: feels better, Tolerating diet Hospitalist Physical - Physical exam Narrative exam: Gen: Not in acute distress, On Oxygen by [place] HEENT: Normocephalic, atraumatic Neck: supple, no JVD Heart: S1 and S2 reg, no murmurs, rubs or gallop Lungs: Chest tube on left, Abd: soft, NT, ostomy, wound vac, left drain Ext: No edema, no clubbing no cyanosis Neuro: Awake,alert , oriented X 3, moves all ext - Constitutional Vitals: Temp Pulse Resp BP Pulse Ox 97.7 F 84 26 H 101/48 94 11/15/19 16:05 11/15/19 16:05 11/15/19 16:05 11/15/19 16:05 11/15/19 16:05 General appearance: Present: no acute distress, obese Results - Labs CBC & Chem 7: 11/15/19 07:10 11/15/19 07:10 Labs: Laboratory Last Values WBC 14.8 K/mm3 (4.5-11.0) H 11/15/19 07:10 RBC 2.89 M/mm3 (3.65-5.03) L 11/15/19 07:10 Hgb 7.8 gm/dl (11.8-15.2) L 11/15/19 07:10 Hct 24.2 % (35.5-45.6) L 11/15/19 07:10 MCV 84 fl (84-94) 11/15/19 07:10 MCH 27 pg (28-32) L 11/15/19 07:10 MCHC 32 % (32-34) 11/15/19 07:10 RDW 16.9 % (13.2-15.2) H 11/15/19 07:10 Plt Count 325 K/mm3 (140-440) 11/15/19 07:10 Lymph % (Auto) 10.1 % (13.4-35.0) L 11/13/19 04:33 [place] % (Auto) 7.6 % (0.0-7.3) H 11/13/19 04:33 Eos % (Auto) 0.7 % (0.0-4.3) 11/13/19 04:33 Baso % (Auto) 0.5 % (0.0-1.8) 11/13/19 04:33 Lymph # 1.1 K/mm3 (1.2-5.4) L 11/13/19 04:33 [place] # 0.9 K/mm3 (0.0-0.8) H 11/13/19 04:33 Eos # 0.1 K/mm3 (0.0-0.4) 11/13/19 04:33 Baso # 0.1 K/mm3 (0.0-0.1) 11/13/19 04:33 Add Manual Diff Complete 10/16/19 09:20 Total Counted 100 10/16/19 09:20 Seg Neutrophils % 81.1 % (40.0-70.0) H 11/13/19 04:33 Seg Neuts % (Manual) 79.0 % (40.0-70.0) H 10/16/19 09:20 Band Neutrophils % 12.0 % 10/16/19 09:20 Lymphocytes % (Manual) 4.0 % (13.4-35.0) L 10/16/19 09:20 Reactive Lymphs % (Man) 0 % 10/16/19 09:20 Monocytes % (Manual) 2.0 % (0.0-7.3) 10/16/19 09:20 Eosinophils % (Manual) 0 % (0.0-4.3) 10/16/19 09:20 Basophils % (Manual) 0 % (0.0-1.8) 10/16/19 09:20 Metamyelocytes % 2.0 % 10/16/19 09:20 Myelocytes % 1.0 % 10/16/19 09:20 Promyelocytes % 0 % 10/16/19 09:20 Blast Cells % 0 % 10/16/19 09:20 Nucleated RBC % Not Reportable 10/16/19 09:20 Seg Neutrophils # 9.1 K/mm3 (1.8-7.7) H 11/13/19 04:33 Seg Neutrophils # Man 11.5 K/mm3 (1.8-7.7) H 10/16/19 09:20 Band Neutrophils # 1.8 K/mm3 10/16/19 09:20 Lymphocytes # (Manual) 0.6 K/mm3 (1.2-5.4) L 10/16/19 09:20 Abs React Lymphs (Man) 0.0 K/mm3 10/16/19 09:20 Monocytes # (Manual) 0.3 K/mm3 (0.0-0.8) 10/16/19 09:20 Eosinophils # (Manual) 0.0 K/mm3 (0.0-0.4) 10/16/19 09:20 Basophils # (Manual) 0.0 K/mm3 (0.0-0.1) 10/16/19 09:20 Metamyelocytes # 0.3 K/mm3 10/16/19 09:20 Myelocytes # 0.1 K/mm3 10/16/19 09:20 Promyelocytes # 0.0 K/mm3 10/16/19 09:20 Blast Cells # 0.0 K/mm3 10/16/19 09:20 WBC Morphology Not Reportable 10/16/19 09:20 Hypersegmented Neuts Not Reportable 10/16/19 09:20 Hyposegmented Neuts Not Reportable 10/16/19 09:20 Hypogranular Neuts Not Reportable 10/16/19 09:20 Smudge Cells Not Reportable 10/16/19 09:20 Toxic Granulation Not Reportable 10/16/19 09:20 Toxic Vacuolation Not Reportable 10/16/19 09:20 Dohle Bodies Not Reportable 10/16/19 09:20 Pelger-Huet Anomaly Not Reportable 10/16/19 09:20 Andres Rods Not Reportable 10/16/19 09:20 Platelet Estimate Consistent w auto 10/16/19 09:20 Clumped Platelets Not Reportable 10/16/19 09:20 Plt Clumps, EDTA Not Reportable 10/16/19 09:20 Large Platelets Not Reportable 10/16/19 09:20 Giant Platelets Not Reportable 10/16/19 09:20 Platelet Satelliting Not Reportable 10/16/19 09:20 Plt Morphology Comment Not Reportable 10/16/19 09:20 RBC Morphology Not Reportable 10/16/19 09:20 Dimorphic RBCs Not Reportable 10/16/19 09:20 Polychromasia Few 10/16/19 09:20 Hypochromasia Few 10/16/19 09:20 Poikilocytosis Not Reportable 10/16/19 09:20 Anisocytosis Not Reportable 10/16/19 09:20 Microcytosis Not Reportable 10/16/19 09:20 Macrocytosis Not Reportable 10/16/19 09:20 Spherocytes Not Reportable 10/16/19 09:20 Pappenheimer Bodies Not Reportable 10/16/19 09:20 Sickle Cells Not Reportable 10/16/19 09:20 Target Cells Few 10/16/19 09:20 Tear Drop Cells Not Reportable 10/16/19 09:20 Ovalocytes Not Reportable 10/16/19 09:20 Helmet Cells Not Reportable 10/16/19 09:20 [place]-Honeygo Bodies Not Reportable 10/16/19 09:20 Ashley Rings Not Reportable 10/16/19 09:20 Berkley Cells Not Reportable 10/16/19 09:20 Bite Cells Not Reportable 10/16/19 09:20 Crenated Cell Not Reportable 10/16/19 09:20 Elliptocytes Not Reportable 10/16/19 09:20 Acanthocytes (Spur) Not Reportable 10/16/19 09:20 Rouleaux Not Reportable 10/16/19 09:20 Hemoglobin C Crystals Not Reportable 10/16/19 09:20 Schistocytes Not Reportable 10/16/19 09:20 Malaria parasites Not Reportable 10/16/19 09:20 Toni Bodies Not Reportable 10/16/19 09:20 Hem Pathologist Commnt No 10/16/19 09:20 POC ABG pH 7.422 (7.35-7.45) 11/03/19 04:28 ABG pH 7.390 pH Units (7.350-7.450) 10/23/19 04:47 POC ABG pCO2 45.4 (35-45) H 11/03/19 04:28 ABG pCO2 48.4 mm Hg 10/23/19 04:47 POC ABG pO2 83 (80-105) 11/03/19 04:28 ABG pO2 68.9 mm Hg (80.0-90.0) L 10/23/19 04:47 POC ABG HCO3 29.6 (22-26 mml/L) 11/03/19 04:28 ABG HCO3 28.7 mmol/L (20.0-26.0) H 10/23/19 04:47 POC ABG Total CO2 31 (23-27mmol/L) 11/03/19 04:28 POC ABG O2 Sat 96 11/03/19 04:28 ABG O2 Saturation 96.6 % (95.0-99.0) 10/23/19 04:47 ABG O2 Content 8.8 (0.0-44) 10/23/19 04:47 POC ABG Base Excess 5 ((-2) - (+3)mmol/L) 11/03/19 04:28 ABG Base Excess 3.4 mmol/L (-2.0-3.0) H 10/23/19 04:47 ABG Hemoglobin 6.6 gm/dl (14.0-18.0) L 10/23/19 04:47 ABG Carboxyhemoglobin 2.1 % (0.0-5.0) 10/23/19 04:47 ABG Methemoglobin 0.5 % (0.0-1.5) 10/23/19 04:47 Oxyhemoglobin 94.1 % (95.0-99.0) L 10/23/19 04:47 FiO2 40 % 11/03/19 04:28 Sodium 133 mmol/L (137-145) L 11/15/19 07:10 Potassium 4.0 mmol/L (3.6-5.0) 11/15/19 07:10 Chloride 93.7 mmol/L (98-107) L 11/15/19 07:10 Carbon Dioxide 23 mmol/L (22-30) 11/15/19 07:10 Anion Gap 20 mmol/L 11/15/19 07:10 BUN 12 mg/dL (9-20) 11/15/19 07:10 Creatinine 0.6 mg/dL (0.8-1.5) L 11/15/19 07:10 Estimated GFR > 60 ml/min 11/15/19 07:10 BUN/Creatinine Ratio 20 % 11/15/19 07:10 Glucose 84 mg/dL (75-100) 11/15/19 07:10 POC Glucose 89 (70-105) 11/15/19 16:56 Hemoglobin A1c 5.7 % (4-6) 10/06/19 05:36 Lactic Acid 1.10 mmol/L (0.7-2.0) 10/13/19 04:20 Calcium 8.9 mg/dL (8.4-10.2) 11/15/19 07:10 Ionized Calcium 5.2 mg/dL (4.8-5.6) 10/18/19 07:41 Phosphorus 2.70 mg/dL (2.5-4.5) 11/02/19 12:43 Magnesium 2.40 mg/dL (1.7-2.3) H 11/02/19 12:43 Total Bilirubin 1.10 mg/dL (0.1-1.2) 10/26/19 06:15 Direct Bilirubin 0.7 mg/dL (0-0.2) H 10/23/19 10:44 Indirect Bilirubin 0.1 mg/dL 10/23/19 10:44 AST 23 units/L (5-40) 10/26/19 06:15 ALT 13 units/L (7-56) 10/26/19 06:15 Alkaline Phosphatase 148 units/L (35-129) H 10/26/19 06:15 Ammonia 49.0 umol/L (25-60) 10/13/19 04:20 Troponin T < 0.010 ng/mL (0.00-0.029) 10/09/19 17:23 C-Reactive Protein 30.60 mg/dL (0.00-1.30) H 10/15/19 04:32 Serum Total Protein 5.2 g/dL (6.1-8.1) L 10/11/19 09:00 Total Protein 5.9 g/dL (6.3-8.2) L 10/26/19 06:15 Albumin 2.4 g/dL (3.9-5) L 10/26/19 06:15 Albumin/Globulin Ratio 0.7 % 10/26/19 06:15 Prealbumin 0.030 g/L (0.200-0.400) L 10/15/19 04:32 [id number] See scanned result 10/11/19 Unknown [place]-1-[id number] See scanned result 10/11/19 Unknown Beta Globulins See scanned result 10/11/19 Unknown Gamma Globulins See scanned result 10/11/19 Unknown Abnorm Protein Band 1 see below 10/11/19 09:00 PEP Interpretation See scanned result 10/11/19 Unknown Triglycerides 185 mg/dL (2-149) H 10/26/19 06:15 Urine Color Yellow (Yellow) 10/26/19 Unknown Urine Turbidity Clear (Clear) 10/26/19 Unknown Urine pH 9.0 (5.0-7.0) H 10/26/19 Unknown Ur Specific [place] 1.011 (1.003-1.030) 10/26/19 Unknown Urine Protein 30 mg/dl mg/dL (Negative) 10/26/19 Unknown Urine Glucose (UA) Neg mg/dL (Negative) 10/26/19 Unknown Urine Ketones Neg mg/dL (Negative) 10/26/19 Unknown Urine Blood Neg (Negative) 10/26/19 Unknown Urine Nitrite Neg (Negative) 10/26/19 Unknown Urine Bilirubin Neg (Negative) 10/26/19 Unknown Urine Urobilinogen < 2.0 mg/dL (<2.0) 10/26/19 Unknown Ur Leukocyte Esterase Neg (Negative) 10/26/19 Unknown Urine WBC (Auto) 1.0 /HPF (0.0-6.0) 10/26/19 Unknown Urine RBC (Auto) 1.0 /HPF (0.0-6.0) 10/26/19 Unknown Urine Bacteria (Auto) 1+ /HPF (Negative) 10/11/19 06:23 Urine Mucus Few /HPF 10/26/19 Unknown Urine Eosinophils None seen (None Seen) 10/11/19 06:23 Ur Random Creatinine See scanned result 10/11/19 Unknown U Random Total Protein See scanned result 10/11/19 Unknown Urine Creatinine 116.8 mg/dL (0.1-20.0) H 10/11/19 06:23 Urine Creatinine 118.2 mg/dL (0.1-20.0) H 10/11/19 06:23 Protein/Creatinin Ratio See scanned result 10/11/19 Unknown Urine Sodium 14 mmol/L 10/11/19 06:23 Urine Total Protein 104 mg/dL (5-11.8) H 10/11/19 06:23 Urine Total Protein 105 mg/dL (5-11.8) H 10/11/19 06:23 U Abnormal Prot Band 1 See scanned result 10/11/19 Unknown U Abnormal Prot Band 2 See scanned result 10/11/19 Unknown U Abnormal Prot Band 3 See scanned result 10/11/19 Unknown Vancomycin Trough 5.7 ug/mL (5.0-20.0) 11/05/19 09:00 Random Vancomycin 9.6 ug/mL (0-40.0) 11/03/19 03:42 Digoxin 0.7 ng/mL (0.9-2.0) L 10/19/19 04:21 Blood Type A POSITIVE 10/23/19 11:50 Antibody Screen Negative 10/23/19 11:50 Crossmatch See Detail 10/23/19 11:50 Active Medications - Current Medications Current Medications: Generic Name Dose Route Start Last Admin Trade Name Freq PRN Reason Stop Dose Admin Acetaminophen 650 mg 10/25/19 13:00 11/03/19 16:03 Tylenol FEEDTUBE 650 mg Q4H PRN Administration Fever >100.5 Acetaminophen/Hydrocodone Bitart 7.5 mg 11/07/19 16:57 11/13/19 15:25 Hydrocodone/Apap 7.5-325 FEEDTUBE 7.5 mg Q4H PRN Administration Pain, Moderate (4-6) Albuterol/Ipratropium 1 ampul 10/06/19 02:00 11/15/19 14:59 Duoneb *Not For Prn Use* IH 1 ampul Q6HRT VERÓNICA Administration Amiodarone HCl 200 mg 10/23/19 13:00 11/15/19 10:36 Cordarone PO 200 mg QDAY VERÓNICA Administration Lipase/Protease/Amylase 1 each 10/20/19 10:37 Pancremeeta Moreno 10,500 Unit FEEDTUBE PRN PRN For Clogged Feeding Tube Arformoterol Tartrate 15 mcg 10/06/19 08:30 11/15/19 07:36 Brovana Nebu IH 15 mcg Q12HRT VERÓNICA Administration Budesonide 0.5 mg 10/07/19 12:20 11/15/19 07:36 Pulmicort IH 0.5 mg Q12HRT VERÓNICA Administration Citalopram Hydrobromide 20 mg 10/27/19 12:00 11/15/19 10:37 Celexa PO 20 mg DAILY VERÓNCIA Administration Enoxaparin Sodium 40 mg 11/05/19 22:00 11/14/19 23:28 Enoxaparin SUB-Q 40 mg QDAY@2200 VERÓNICA Administration Haloperidol Lactate 5 mg 10/25/19 18:22 11/12/19 03:33 Haldol IV 5 mg Q6H PRN Administration Agitation Hydralazine HCl 10 mg 10/28/19 14:09 11/02/19 15:34 Apresoline IV 10 mg Q4HR PRN Administration Hypertension Hydromorphone HCl 2 mg 10/25/19 12:35 11/15/19 12:34 Dilaudid IV 2 mg Q4H PRN Administration Pain , Severe (7-10) Insulin Human Lispro 0 unit 10/14/19 12:00 11/15/19 17:55 Humalog SUB-Q Not Given Q6HR [facility] Protocol Lisinopril 20 mg 10/30/19 10:00 11/15/19 10:39 Zestril PO Not Given QDAY VERÓNICA Metoprolol Tartrate 2.5 mg 10/15/19 15:34 11/01/19 18:00 Metoprolol IV 2.5 mg Q4HR PRN Administration HR >130 Metoprolol Tartrate 50 mg 10/25/19 14:00 11/15/19 14:00 Metoprolol PO 50 mg Q8HR [facility] Administration Multi-Ingred Cream/Lotion/Oil/Oint 1 applic 10/14/19 02:19 Artificial Tears Ophth Oint OU Q4HR PRN Dry Eye(s) Pantoprazole Sodium 40 mg 10/15/19 10:00 11/15/19 10:37 Protonix IV 40 mg QDAY VERÓNICA Administration Simple Syrup 15 ml 10/20/19 10:37 Simple Syrup FEEDTUBE PRN PRN Hypoglycemia Simple Syrup 30 ml 10/20/19 10:37 Simple Syrup FEEDTUBE PRN PRN Hypoglycemia Sodium Bicarbonate 325 mg 10/20/19 10:37 11/14/19 05:59 Sodium Bicarbonate FEEDTUBE 325 mg PRN PRN Administration For Clogged Feeding Tube Sodium Chloride 10 ml 11/07/19 19:32 11/15/19 10:37 Sodium Chloride Flush Syringe 10 Ml IV 10 ml PRN PRN Administration LINE FLUSH Zolpidem Tartrate 5 mg 11/10/19 21:00 11/11/19 03:30 Ambien FEEDTUBE 5 mg QHS PRN Administration Sleep Nutrition/Malnutrition Assess - Dietary Evaluation Nutrition/Malnutrition Findings: Nutrition Notes Start: 10/08/19 11:36 Freq: Status: Active Protocol: Document 11/15/19 11:31 LP (Rec: 11/15/19 11:42 LP [id number]) Nutrition Notes Initial or Follow up Reassessment Current Diagnosis Acute Kidney Injury,COPD, Hypertension Other Pertinent Diagnosis intra-abdominal infection, disruption of bowel anastomosis, LE edema Current Diet Regular Labs/Tests Reviewed Pertinent Medications Reviewed Height 6 ft Weight 145 kg [place] Body Weight (kg) 80.90 BMI 43.3 Weight Status Morbidly Obese Subjective/Other Information Ostomy is functioning. TF on hold due to clogged j tube. Pt noted with eating 75-100% of meals. Pt sleeping at time of visit. Percent of energy/protein needs met: 86%/50% Burn Absent Trauma Absent GI Symptoms None Current % PO Good (75-100%) Minimum of two criteria No Fluid Accumulation Mild (non-severe) #2 Nutrition Diagnosis Inadequate oral intake As Evidenced by Signs and Symptoms Diet advanced and noted consuming 75-100% of meals Diagnosis Progress(for reassessment Improved documentation) #1 Nutrition Diagnosis Increased nutrient needs ( specify in comment below) Diagnosis Progress(for reassessment Continues documentation) Is patient on ventilator? No Is Patient Ambulatory and/or Out of Bed No REE-([place]-confined to bed) 2785.236 Kcal/Kg value to use for calculation 14 Approximate Energy Requirements Using 2030 kcal/Kg Calculation Used for Recommendations Kcal/kg Additional Notes Protein: 136-169g (1.2-1.5g/kg ) AdjBW 113kg Fluid 1 ml/kcal or per MD Nutrition Intervention Change Diet Order: Continue regular Nutrition Support: D/C for now Add Supplement/Snack (indicate name/kcal Ensure High Protein BID /protein ) Provides kCal: 320 Provides Protein (gm) 32 Goal #1 Meet at least 80% of energy and protein needs via PO intakes Anticipated Discharge Needs: Regular diet Follow-Up By: 11/19/19 Additional Comments Follow for intakes and ONS tolerance
[2019-11-15] MEDS: HYDROcodone/APAP 7.5-325MG-15ML ORAL LIQD FEEDTUBE PRN (19:18)
[2019-11-15 20:53] LABS: Hematocrit 23.5 % (35.5-45.6); Hemoglobin 7.6 gm/dl (11.8-15.2); Mean Corpuscular HGB Conc 33 % (32-34); Mean Corpuscular Volume 84 fl (84-94); Platelet Count 309 K/mm3 (140-440); Red Blood Count 2.79 M/mm3 (3.65-5.03)
[2019-11-15] MEDS: ENOXAPARIN 40 MG/0.4 ML INJ SUB-Q SCH (21:21)
[2019-11-16] MEDS: INSULIN LISPRO 100 UNIT/ML SUB-Q SCH ×4 (01:06→17:12)
[2019-11-16] MEDS: IPRATROPIUM/ALBUTEROL SULFATE 3 ML AMPUL.NEB IH SCH ×5 (04:07→21:28)
[2019-11-16] MEDS: HYDROcodone/APAP 7.5-325MG-15ML ORAL LIQD FEEDTUBE PRN (04:16)
[2019-11-16] MEDS: METOPROLOL TARTRATE 50 MG TAB PO SCH ×3 (05:31→21:19)
[2019-11-16] MEDS: BUDESONIDE 0.5 MG/2 ML NEBU IH SCH ×2 (08:34→21:28)
[2019-11-16] MEDS: ARFORMOTEROL 15 MCG/2 ML NEBU IH SCH ×2 (08:35→21:28)
[2019-11-16] MEDS: AMIODARONE 200 MG TAB PO SCH (11:16)
[2019-11-16] MEDS: CITALOPRAM 20 MG TAB PO SCH (11:18)
[2019-11-16] MEDS: PANTOPRAZOLE 40 MG INJ IV SCH (11:18)
[2019-11-16] MEDS: LISINOPRIL 20 MG TAB PO SCH (11:18)
[2019-11-16 11:31] LABS: BUN/Creatinine Ratio 17; Blood Urea Nitrogen 10 mg/dL (9-20); Calcium 8.9 mg/dL (8.4-10.2); Hemolysis Index 4
[2019-11-16] MEDS: HYDROmorphone 2 MG/1 ML INJ IV PRN (12:00)
--- NOTE | 2019-11-16 12:46 | Progress Note ---
Assessment and Plan 54 y/o male with anastomic leak 11/16/19: No distress noted. Will only repeat CXR if needed. otherwise continue IS, oob to chair as tolerated if possible and will benefit from rehab. 11/12/19: Spoke with surgery this am. Currently pleased with progress. Reviewed IR note, and they plan to remove CT today. Continue IS. Will speak with CM about looking into rehabs directly from IMCU as oppose to transferring to the floor first. 11/06: Chest tube intact. No air leak. Will ask IR if catheter can be pulled out normally (i.e. not some form of tunneled catheter). If so will have them take it out later this week. If [facility] beds available, good candidate for there, likely not quite ready for floor yet. 11/04: Stable self extubation. Continue chest tube to suction. Will likely start waterseal tomorrow. Goad maybe to get CT out Tuesday. All other drains per surgery. Encouraged use of IS regularly at the bedside and suctioning as needed per . 11/03: Looks clinically better. Na was better on repeat labs. Spoke with and surgery to update them both. Most likely will attempt extubation in the am. Will hold feeds for about an hour in the morning prior to extubation then restart. 11/02: Repeat labs this am. Hard time believing that 2 liters of normal saline made his sodium increase that much. Also, once i discuss with surgery, may consider giving more blood. Will also hold tube feeds briefly as well. In case any procedures. Lovenox held last night. Continue vent support 11/01: Spoke with Dr. Krause this am and understand his concerns. Have started the transfer process. Most ICU's throughout the city are on diversion or full. [place] has received his Facesheet and we are awaiting to hear back from them. CXR is clear. Minimal vent settings. Will continue supportive care for now. Follow up any new ID recs given increasing white and fever. 10/31: Will check CXR tomorrow. Continue chest tube to suction. Will likely stay in until extubated. Continue drains. Explained to staff to be extremely careful with these drains so that they do not come out. 10/30: Acute on chronic respiratory failure requiring reintubation. Appreciate Anesthesia assistance as he was a difficult intubation when we had to change his tube out about 1 week ago. Will continue on 100% until after Scans and then start to wean back down. CXR yesterday looked like pulmonary edema but improved today with positive pressure. Continue supportive care and await results of s cans. 10/29: Discussed today on rounds. Patient had some issues over the weekend with the ICE chips and liquids. Will obtain speech consult/eval prior to restarting clears today. Spoke with nutrition and they will adjust tube feeds with new goal. Once at goal will start to taper off TPN. ordered Incentive madhu to bedside. Will also restart home dose of elaine today. pain control and drainage monitoring. Will continue ICU care. 10/26: Patient stable overall. Not ready for floor. Would be ok with step down if beds are needed. If spikes temp again will order blood cultures x2, urine culture, UA and repeat CXR. Gave an additional 40 of lasix this am. Will give more potassium replacement. Continue trickle feeds for now. Will continue PO meds and restart home dose of citalopram. Wean FiO2 and flow for sats >88%. Mildly hypertensive but this was secondary to agitation. Normalizing now. 10/25: Will extubate today. Will use HFNC if distress or hypoxemia is noted. Not a good candidate for bipap given his recent abdominal issues. Spoke with wi thu who is now at bedside and surgery. Will continue to attempt to achieve net negative state daily. Hold on further albumin administration. Hypernatremia is iatrogenic from lasix administration Worse case scenario, will re-intubate with anesthesia. 10/24: Responding well to lasix and protein therapy. Will give 2 more doses of lasix today. Consider one for tonight as well. Last albumin today at 1800. CXR is stable, still with layering bilateral pleural effusions. Will reassess again tomorrow. Reviewed all other polymer materials consultant notes. Spoke with sisters at bedside, updated and spoke with surgery. 10/23: Long discussion with surgery and via phone. Anasarca is likely from decreased oncotic pressure and immobility of several days now that abdomen is finally closed. Now fluid is essentially leaking into the interstitium now that the abdomen is shut and there is increased intra-abdominal pressure. Total Protein is 4.5 and albumin is 1.2. This is to be expected given current illness. Will attempt to increase oncotic pressure with 2 units of PRBC's and albumin infusions for the next 24 hours starting at midnight tonight. Will give lasix inbetween transfusions and then again tonight. CXR is consistent with pulmonary edema volume overload. Will continue vent for now and after significant volume removal then will attempt extubation. Discussed with and she understands. Will continue to monitor. Agree with trickle feeds and cards has switched amio over to PO to be given through the G-tube. If tolerates, hopeful to be rid of TPN soon as this is necessary but excessive volume as well. 10/22: Added diprovan as more sedation was needed. Hopefully once closed and no leaks, patient can be extubated. Cards very concerned about length of time for IV amio. Will discuss with surgery the time frame that gut can be used. 10/21: Will hold on weaning until abdomen is closed, especially knowing mental status is good. Will focus on pain control. Replace electrolytes. Appreciate Surgery recs and detail. Follow up any new recs from cards. Or tomorrow for closure Subjective Date of service: 11/16/19 Principal diagnosis: acute renal failure Interval history: No acute events. Still on 3 liters NC with good sats Objective Vital Signs - 12hr 11/16/19 11/16/19 11/16/19 02:00 05:00 05:33 Temperature Pulse Rate 102 H Pulse Rate [ 86 Anterior Bilateral Throughout] Respiratory Rate Respiratory 18 Rate [Anterior Bilateral Throughout] Blood Pressure O2 Sat by Pulse 98 Oximetry 11/16/19 11/16/19 11/16/19 05:59 08:23 11:18 Temperature 98.2 F Pulse Rate 81 89 Pulse Rate [ Anterior Bilateral Throughout] Respiratory 18 18 Rate Respiratory Rate [Anterior Bilateral Throughout] Blood Pressure 97/48 95/47 101/56 O2 Sat by Pulse 93 Oximetry 11/16/19 12:03 Temperature 98.2 F Pulse Rate 84 Pulse Rate [ Anterior Bilateral Throughout] Respiratory 18 Rate Respiratory Rate [Anterior Bilateral Throughout] Blood Pressure 113/48 O2 Sat by Pulse 94 Oximetry Constitutional: no acute distress, alert, other (obese) Eyes: non-icteric ENT: oropharynx moist Neck: supple Effort: normal Ascultation: Bilateral: diminished breath sounds (bases) Cardiovascular: regular rate and rhythm (no mrg) Gastrointestinal: tender, other (obese, distended, ostomy in place; wound vac in place) Integumentary: normal Extremities: no cyanosis, pink and warm, edema (1+ bilateral LE edema) Neurologic: normal mental status, non-focal exam, pupils equal and round Psychiatric: mood appropriate, affect normal CBC and BMP: 11/15/19 20:16 11/16/19 10:26 ABG, PT/INR, D-dimer: ABG POC ABG pH 7.422 (7.35-7.45) 11/03/19 04:28 ABG pH 7.390 pH Units (7.350-7.450) 10/23/19 04:47 POC ABG pCO2 45.4 (35-45) H 11/03/19 04:28 ABG pCO2 48.4 mm Hg 10/23/19 04:47 POC ABG pO2 83 (80-105) 11/03/19 04:28 ABG pO2 68.9 mm Hg (80.0-90.0) L 10/23/19 04:47 POC ABG HCO3 29.6 (22-26 mml/L) 11/03/19 04:28 POC ABG Total CO2 31 (23-27mmol/L) 11/03/19 04:28 POC ABG O2 Sat 96 11/03/19 04:28 ABG O2 Saturation 96.6 % (95.0-99.0) 10/23/19 04:47 Abnormal lab findings: Abnormal Labs 10/06/19 10/06/19 10/07/19 05:36 05:36 05:54 WBC 21.8 H 21.5 H RBC 3.55 L Hgb 10.9 L Hct 32.7 L MCH MCHC RDW Plt Count Lymph % (Auto) Kane % (Auto) Lymph # Kane # Seg Neutrophils % Seg Neuts % (Manual) 91.0 H Lymphocytes % (Manual) 2.0 L Seg Neutrophils # Seg Neutrophils # Man 19.8 H Lymphocytes # (Manual) 0.4 L Monocytes # (Manual) 1.1 H POC ABG pH ABG pH POC ABG pCO2 POC ABG pO2 ABG pO2 ABG HCO3 ABG Base Excess ABG Hemoglobin Oxyhemoglobin Sodium 135 L Potassium Chloride 95.9 L Carbon Dioxide BUN Creatinine 0.7 L Glucose POC Glucose Calcium Phosphorus Magnesium Direct Bilirubin AST Alkaline Phosphatase C-Reactive Protein Serum Total Protein Total Protein 5.7 L Albumin 2.5 L Prealbumin Dpvyt-5-Axoxghtdo Iioqa-0-Dvetqteot Gamma Globulins PEP Interpretation Triglycerides Urine pH Urine Creatinine Urine Total Protein Vancomycin Trough Digoxin Crossmatch 10/07/19 10/09/19 10/09/19 05:54 10:52 10:52 WBC 16.6 H RBC Hgb Hct MCH MCHC RDW Plt Count 498 H Lymph % (Auto) Kane % (Auto) Lymph # Kane # Seg Neutrophils % Seg Neuts % (Manual) 93.0 H Lymphocytes % (Manual) 5.0 L Seg Neutrophils # Seg Neutrophils # Man 15.4 H Lymphocytes # (Manual) 0.8 L Monocytes # (Manual) POC ABG pH ABG pH POC ABG pCO2 POC ABG pO2 ABG pO2 ABG HCO3 ABG Base Excess ABG Hemoglobin Oxyhemoglobin Sodium Potassium Chloride 97.9 L Carbon Dioxide 20 L D BUN 23 H Creatinine 1.7 H D Glucose 109 H POC Glucose Calcium 8.1 L Phosphorus Magnesium Direct Bilirubin AST Alkaline Phosphatase C-Reactive Protein Serum Total Protein Total Protein Albumin Prealbumin Rhudp-0-Ihjicxwda Qgdtu-9-Drkwtjuvi Gamma Globulins PEP Interpretation Triglycerides Urine pH Urine Creatinine Urine Total Protein Vancomycin Trough Digoxin Crossmatch 10/09/19 10/10/19 10/10/19 17:23 05:30 05:30 WBC 14.6 H RBC Hgb 11.1 L Hct 33.5 L MCH MCHC RDW Plt Count 527 H Lymph % (Auto) Kane % (Auto) Lymph # Kane # Seg Neutrophils % Seg Neuts % (Manual) Lymphocytes % (Manual) Seg Neutrophils # Seg Neutrophils # Man Lymphocytes # (Manual) Monocytes # (Manual) POC ABG pH ABG pH POC ABG pCO2 POC ABG pO2 ABG pO2 ABG HCO3 ABG Base Excess ABG Hemoglobin Oxyhemoglobin Sodium 130 L D Potassium 5.1 H Chloride 90.0 L 91.0 L Carbon Dioxide 20 L 20 L BUN 27 H 35 H Creatinine 1.9 H 2.0 H Glucose 104 H POC Glucose Calcium Phosphorus Magnesium Direct Bilirubin AST Alkaline Phosphatase C-Reactive Protein Serum Total Protein Total Protein Albumin Prealbumin Tjndh-2-Nogtdhzmc Cihts-5-Izqnnjukt Gamma Globulins PEP Interpretation Triglycerides Urine pH Urine Creatinine Urine Total Protein Vancomycin Trough Digoxin Crossmatch 10/10/19 10/10/19 10/11/19 08:33 08:44 05:41 WBC 13.2 H RBC Hgb 11.3 L Hct 33.8 L MCH MCHC RDW 15.3 H Plt Count 543 H Lymph % (Auto) Kane % (Auto) Lymph # Kane # Seg Neutrophils % Seg Neuts % (Manual) Lymphocytes % (Manual) Seg Neutrophils # Seg Neutrophils # Man Lymphocytes # (Manual) Monocytes # (Manual) POC ABG pH ABG pH POC ABG pCO2 POC ABG pO2 ABG pO2 ABG HCO3 ABG Base Excess ABG Hemoglobin Oxyhemoglobin Sodium Potassium Chloride Carbon Dioxide BUN Creatinine Glucose 113 H POC Glucose 117 H Calcium Phosphorus Magnesium Direct Bilirubin AST Alkaline Phosphatase C-Reactive Protein Serum Total Protein Total Protein Albumin Prealbumin Wcpqg-6-Feetpvlnj Rzetc-0-Hqavbcaee Gamma Globulins PEP Interpretation Triglycerides Urine pH Urine Creatinine Urine Total Protein Vancomycin Trough Digoxin Crossmatch 10/11/19 10/11/19 10/11/19 05:41 06:23 06:23 WBC RBC Hgb Hct MCH MCHC RDW Plt Count Lymph % (Auto) Kane % (Auto) Lymph # Kane # Seg Neutrophils % Seg Neuts % (Manual) Lymphocytes % (Manual) Seg Neutrophils # Seg Neutrophils # Man Lymphocytes # (Manual) Monocytes # (Manual) POC ABG pH ABG pH POC ABG pCO2 POC ABG pO2 ABG pO2 ABG HCO3 ABG Base Excess ABG Hemoglobin Oxyhemoglobin Sodium 134 L Potassium Chloride 96.3 L Carbon Dioxide BUN 37 H Creatinine Glucose 58 L POC Glucose Calcium Phosphorus 4.90 H Magnesium Direct Bilirubin AST Alkaline Phosphatase C-Reactive Protein Serum Total Protein Total Protein Albumin Prealbumin Izrby-9-Tmvxeyohx Ffklm-9-Oburverjh Gamma Globulins PEP Interpretation Triglycerides Urine pH Urine Creatinine 118.2 H 116.8 H Urine Total Protein 105 H 104 H Vancomycin Trough Digoxin Crossmatch 10/11/19 10/12/19 10/12/19 09:00 06:09 06:09 WBC 13.8 H RBC 3.39 L Hgb 10.2 L Hct 30.9 L MCH MCHC RDW 15.5 H Plt Count 459 H Lymph % (Auto) Kane % (Auto) Lymph # [place] # Seg Neutrophils % Seg Neuts % (Manual) Lymphocytes % (Manual) Seg Neutrophils # Seg Neutrophils # Man Lymphocytes # (Manual) Monocytes # (Manual) POC ABG pH ABG pH POC ABG pCO2 POC ABG pO2 ABG pO2 ABG HCO3 ABG Base Excess ABG Hemoglobin Oxyhemoglobin Sodium 131 L Potassium Chloride 96.2 L Carbon Dioxide 21 L BUN 43 H Creatinine Glucose 72 L POC Glucose Calcium Phosphorus Magnesium Direct Bilirubin AST Alkaline Phosphatase C-Reactive Protein Serum Total Protein 5.2 L Total Protein Albumin 1.9 L Prealbumin Snaxs-2-Uoarxpjko 0.9 H Mxrrf-1-Tuqmkyjue 1.0 H Gamma Globulins 0.7 L PEP Interpretation see below H Triglycerides Urine pH Urine Creatinine Urine Total Protein Vancomycin Trough Digoxin Crossmatch 10/12/19 10/12/19 10/12/19 08:20 09:30 09:30 WBC RBC Hgb Hct MCH MCHC RDW Plt Count Lymph % (Auto) Kane % (Auto) Lymph # Kane # Seg Neutrophils % Seg Neuts % (Manual) Lymphocytes % (Manual) Seg Neutrophils # Seg Neutrophils # Man Lymphocytes # (Manual) Monocytes # (Manual) POC ABG pH ABG pH POC ABG pCO2 POC ABG pO2 63 L ABG pO2 ABG HCO3 ABG Base Excess ABG Hemoglobin Oxyhemoglobin Sodium Potassium Chloride Carbon Dioxide BUN Creatinine Glucose POC Glucose Calcium Phosphorus Magnesium 2.50 H Direct Bilirubin 0.3 H AST Alkaline Phosphatase C-Reactive Protein Serum Total Protein Total Protein 5.1 L Albumin 2.2 L Prealbumin Wlcex-7-Imkfscbvc Upgkv-5-Apwiaifww Gamma Globulins PEP Interpretation Triglycerides Urine pH Urine Creatinine Urine Total Protein Vancomycin Trough Digoxin Crossmatch 10/13/19 10/13/19 10/13/19 04:20 04:20 13:20 WBC 15.7 H RBC 3.64 L Hgb 10.9 L Hct 33.1 L MCH MCHC RDW 15.8 H Plt Count 488 H Lymph % (Auto) Kane % (Auto) Lymph # Kane # Seg Neutrophils % Seg Neuts % (Manual) Lymphocytes % (Manual) Seg Neutrophils # Seg Neutrophils # Man Lymphocytes # (Manual) Monocytes # (Manual) POC ABG pH ABG pH POC ABG pCO2 POC ABG pO2 ABG pO2 ABG HCO3 ABG Base Excess ABG Hemoglobin Oxyhemoglobin Sodium Potassium Chloride Carbon Dioxide BUN 28 H Creatinine Glucose POC Glucose Calcium Phosphorus Magnesium Direct Bilirubin AST Alkaline Phosphatase C-Reactive Protein Serum Total Protein Total Protein Albumin Prealbumin Sjdvv-8-Gbykigder Kyfme-3-Bgoweuzcx Gamma Globulins PEP Interpretation Triglycerides Urine pH Urine Creatinine Urine Total Protein Vancomycin Trough Digoxin Crossmatch See Detail 10/13/19 10/13/19 10/14/19 18:24 20:05 04:47 WBC 24.2 H RBC Hgb 10.9 L Hct 34.2 L MCH MCHC RDW 17.0 H Plt Count 442 H Lymph % (Auto) Kane % (Auto) Lymph # Kane # Seg Neutrophils % Seg Neuts % (Manual) Lymphocytes % (Manual) Seg Neutrophils # Seg Neutrophils # Man Lymphocytes # (Manual) Monocytes # (Manual) POC ABG pH ABG pH 7.180 L* 7.278 L POC ABG pCO2 POC ABG pO2 ABG pO2 130.7 H ABG HCO3 ABG Base Excess -6.5 L -6.5 L ABG Hemoglobin 12.2 L 12.3 L Oxyhemoglobin 92.9 L Sodium Potassium Chloride Carbon Dioxide BUN Creatinine Glucose POC Glucose Calcium Phosphorus Magnesium Direct Bilirubin AST Alkaline Phosphatase C-Reactive Protein Serum Total Protein Total Protein Albumin Prealbumin Nrpkh-0-Apozpjwae Oktqx-3-Pwojxaoxl Gamma Globulins PEP Interpretation Triglycerides Urine pH Urine Creatinine Urine Total Protein Vancomycin Trough Digoxin Crossmatch 10/14/19 10/14/19 10/14/19 04:47 05:40 10:14 WBC RBC Hgb Hct MCH MCHC RDW Plt Count Lymph % (Auto) Kane % (Auto) Lymph # Kane # Seg Neutrophils % Seg Neuts % (Manual) Lymphocytes % (Manual) Seg Neutrophils # Seg Neutrophils # Man Lymphocytes # (Manual) Monocytes # (Manual) POC ABG pH ABG pH POC ABG pCO2 POC ABG pO2 ABG pO2 76.3 L ABG HCO3 19.1 L ABG Base Excess -5.8 L ABG Hemoglobin 10.9 L Oxyhemoglobin 93.4 L Sodium Potassium 5.1 H D Chloride 109.2 H Carbon Dioxide 17 L BUN 38 H Creatinine 1.8 H D Glucose 104 H POC Glucose Calcium 7.4 L Phosphorus 5.60 H Magnesium Direct Bilirubin AST Alkaline Phosphatase C-Reactive Protein Serum Total Protein Total Protein Albumin Prealbumin Rcsgo-0-Hxqrzrjve Sgbbj-3-Jheotglhs Gamma Globulins PEP Interpretation Triglycerides Urine pH Urine Creatinine Urine Total Protein Vancomycin Trough Digoxin Crossmatch 10/14/19 10/15/19 10/15/19 23:46 04:32 04:32 WBC 15.5 H RBC 2.89 L Hgb 8.8 L Hct 27.3 L D MCH MCHC RDW 16.6 H Plt Count Lymph % (Auto) Kane % (Auto) Lymph # Kane # Seg Neutrophils % Seg Neuts % (Manual) Lymphocytes % (Manual) Seg Neutrophils # Seg Neutrophils # Man Lymphocytes # (Manual) Monocytes # (Manual) POC ABG pH ABG pH POC ABG pCO2 POC ABG pO2 ABG pO2 ABG HCO3 ABG Base Excess ABG Hemoglobin Oxyhemoglobin Sodium 147 H Potassium Chloride 114.0 H Carbon Dioxide 19 L BUN 42 H Creatinine Glucose 112 H POC Glucose 113 H Calcium 7.3 L Phosphorus Magnesium Direct Bilirubin AST 72 H Alkaline Phosphatase C-Reactive Protein 30.60 H Serum Total Protein Total Protein 4.0 L D Albumin 1.7 L Prealbumin 0.030 L Yigfa-6-Emubxlqyj Lbzlh-2-Wiynoqzxd Gamma Globulins PEP Interpretation Triglycerides Urine pH Urine Creatinine Urine Total Protein Vancomycin Trough Digoxin Crossmatch 10/15/19 10/15/19 10/15/19 05:30 12:08 17:23 WBC RBC Hgb Hct MCH MCHC RDW Plt Count Lymph % (Auto) Kane % (Auto) Lymph # Kane # Seg Neutrophils % Seg Neuts % (Manual) Lymphocytes % (Manual) Seg Neutrophils # Seg Neutrophils # Man Lymphocytes # (Manual) Monocytes # (Manual) POC ABG pH ABG pH 7.296 L POC ABG pCO2 POC ABG pO2 ABG pO2 114.7 H ABG HCO3 ABG Base Excess -3.7 L ABG Hemoglobin 8.9 L Oxyhemoglobin Sodium Potassium Chloride Carbon Dioxide BUN Creatinine Glucose POC Glucose 106 H 106 H Calcium Phosphorus Magnesium Direct Bilirubin AST Alkaline Phosphatase C-Reactive Protein Serum Total Protein Total Protein Albumin Prealbumin Nushm-0-Tcymplgft Djzjp-3-Zcejsxicb Gamma Globulins PEP Interpretation Triglycerides Urine pH Urine Creatinine Urine Total Protein Vancomycin Trough Digoxin Crossmatch 10/16/19 10/16/19 10/16/19 00:07 04:44 05:24 WBC RBC Hgb Hct MCH MCHC RDW Plt Count Lymph % (Auto) Kane % (Auto) Lymph # Kane # Seg Neutrophils % Seg Neuts % (Manual) Lymphocytes % (Manual) Seg Neutrophils # Seg Neutrophils # Man Lymphocytes # (Manual) Monocytes # (Manual) POC ABG pH ABG pH POC ABG pCO2 POC ABG pO2 ABG pO2 ABG HCO3 ABG Base Excess ABG Hemoglobin Oxyhemoglobin Sodium 150 H Potassium Chloride 115.8 H Carbon Dioxide BUN 35 H Creatinine Glucose 129 H POC Glucose 119 H 129 H Calcium 7.3 L Phosphorus 1.80 L D Magnesium Direct Bilirubin AST Alkaline Phosphatase C-Reactive Protein Serum Total Protein Total Protein Albumin Prealbumin Bkiou-4-Rwdmwmvgr Besxb-4-Jngihhcmx Gamma Globulins PEP Interpretation Triglycerides Urine pH Urine Creatinine Urine Total Protein Vancomycin Trough Digoxin Crossmatch 10/16/19 10/16/19 10/16/19 06:53 09:20 11:58 WBC 14.6 H RBC 2.70 L Hgb 8.1 L Hct 25.2 L MCH MCHC RDW 16.7 H Plt Count Lymph % (Auto) Kane % (Auto) Lymph # Kane # Seg Neutrophils % Seg Neuts % (Manual) 79.0 H Lymphocytes % (Manual) 4.0 L Seg Neutrophils # Seg Neutrophils # Man 11.5 H Lymphocytes # (Manual) 0.6 L Monocytes # (Manual) POC ABG pH ABG pH POC ABG pCO2 47.0 H POC ABG pO2 ABG pO2 ABG HCO3 ABG Base Excess ABG Hemoglobin Oxyhemoglobin Sodium Potassium Chloride Carbon Dioxide BUN Creatinine Glucose POC Glucose Calcium Phosphorus Magnesium Direct Bilirubin AST Alkaline Phosphatase C-Reactive Protein Serum Total Protein Total Protein Albumin Prealbumin Hdygw-1-Pwhkfayxn Dclsj-7-Yttcewtup Gamma Globulins PEP Interpretation Triglycerides Urine pH Urine Creatinine Urine Total Protein Vancomycin Trough Digoxin Crossmatch See Detail 10/16/19 10/16/19 10/16/19 15:23 17:50 23:58 WBC RBC Hgb Hct MCH MCHC RDW Plt Count Lymph % (Auto) Kane % (Auto) Lymph # Kane # Seg Neutrophils % Seg Neuts % (Manual) Lymphocytes % (Manual) Seg Neutrophils # Seg Neutrophils # Man Lymphocytes # (Manual) Monocytes # (Manual) POC ABG pH ABG pH POC ABG pCO2 POC ABG pO2 ABG pO2 ABG HCO3 ABG Base Excess ABG Hemoglobin Oxyhemoglobin Sodium Potassium Chloride Carbon Dioxide BUN Creatinine Glucose POC Glucose 221 H 201 H 179 H Calcium Phosphorus Magnesium Direct Bilirubin AST Alkaline Phosphatase C-Reactive Protein Serum Total Protein Total Protein Albumin Prealbumin Odzct-7-Epquoiypr Ccgyx-4-Ruksumtob Gamma Globulins PEP Interpretation Triglycerides Urine pH Urine Creatinine Urine Total Protein Vancomycin Trough Digoxin Crossmatch 10/17/19 10/17/19 10/17/19 04:08 04:08 05:41 WBC 22.3 H RBC 3.35 L Hgb 10.0 L Hct 31.2 L D MCH MCHC RDW 16.1 H Plt Count Lymph % (Auto) Kane % (Auto) Lymph # Kane # Seg Neutrophils % Seg Neuts % (Manual) Lymphocytes % (Manual) Seg Neutrophils # Seg Neutrophils # Man Lymphocytes # (Manual) Monocytes # (Manual) POC ABG pH 7.310 L ABG pH POC ABG pCO2 52.8 H POC ABG pO2 70 L ABG pO2 ABG HCO3 ABG Base Excess ABG Hemoglobin Oxyhemoglobin Sodium 147 H Potassium Chloride 114.9 H Carbon Dioxide BUN 36 H Creatinine Glucose 165 H POC Glucose Calcium 6.9 L Phosphorus 2.20 L D Magnesium Direct Bilirubin AST Alkaline Phosphatase C-Reactive Protein Serum Total Protein Total Protein Albumin Prealbumin Ydbqj-2-Hsxrvavcy Vmmww-7-Cmqubmrfr Gamma Globulins PEP Interpretation Triglycerides Urine pH Urine Creatinine Urine Total Protein Vancomycin Trough Digoxin Crossmatch 10/17/19 10/17/19 10/17/19 05:42 11:33 18:17 WBC RBC Hgb Hct MCH MCHC RDW Plt Count Lymph % (Auto) Kane % (Auto) Lymph # Kane # Seg Neutrophils % Seg Neuts % (Manual) Lymphocytes % (Manual) Seg Neutrophils # Seg Neutrophils # Man Lymphocytes # (Manual) Monocytes # (Manual) POC ABG pH ABG pH POC ABG pCO2 POC ABG pO2 ABG pO2 ABG HCO3 ABG Base Excess ABG Hemoglobin Oxyhemoglobin Sodium Potassium Chloride Carbon Dioxide BUN Creatinine Glucose POC Glucose 149 H 154 H 163 H Calcium Phosphorus Magnesium Direct Bilirubin AST Alkaline Phosphatase C-Reactive Protein Serum Total Protein Total Protein Albumin Prealbumin Iokca-5-Kqrusgyvw Tpluo-4-Wsqowascz Gamma Globulins PEP Interpretation Triglycerides Urine pH Urine Creatinine Urine Total Protein Vancomycin Trough Digoxin Crossmatch 10/17/19 10/18/19 10/18/19 23:34 03:29 04:50 WBC RBC Hgb Hct MCH MCHC RDW Plt Count Lymph % (Auto) Kane % (Auto) Lymph # Kane # Seg Neutrophils % Seg Neuts % (Manual) Lymphocytes % (Manual) Seg Neutrophils # Seg Neutrophils # Man Lymphocytes # (Manual) Monocytes # (Manual) POC ABG pH ABG pH POC ABG pCO2 POC ABG pO2 ABG pO2 78.8 L ABG HCO3 ABG Base Excess ABG Hemoglobin 8.8 L Oxyhemoglobin Sodium Potassium Chloride 111.8 H Carbon Dioxide BUN 27 H Creatinine 0.6 L Glucose 140 H POC Glucose 135 H Calcium 7.1 L Phosphorus 1.80 L Magnesium Direct Bilirubin AST Alkaline Phosphatase C-Reactive Protein Serum Total Protein Total Protein Albumin Prealbumin Rryyc-2-Xpkzmufok Osoqj-5-Uymbrncww Gamma Globulins PEP Interpretation Triglycerides Urine pH Urine Creatinine Urine Total Protein Vancomycin Trough Digoxin Crossmatch 10/18/19 10/18/19 10/18/19 05:45 11:19 18:26 WBC RBC Hgb Hct MCH MCHC RDW Plt Count Lymph % (Auto) Kane % (Auto) Lymph # Kane # Seg Neutrophils % Seg Neuts % (Manual) Lymphocytes % (Manual) Seg Neutrophils # Seg Neutrophils # Man Lymphocytes # (Manual) Monocytes # (Manual) POC ABG pH ABG pH POC ABG pCO2 POC ABG pO2 ABG pO2 ABG HCO3 ABG Base Excess ABG Hemoglobin Oxyhemoglobin Sodium Potassium Chloride Carbon Dioxide BUN Creatinine Glucose POC Glucose 145 H 152 H 125 H Calcium Phosphorus Magnesium Direct Bilirubin AST Alkaline Phosphatase C-Reactive Protein Serum Total Protein Total Protein Albumin Prealbumin Legds-8-Movrfgaqp Pdshf-8-Rlejpcfsz Gamma Globulins PEP Interpretation Triglycerides Urine pH Urine Creatinine Urine Total Protein Vancomycin Trough Digoxin Crossmatch 10/18/19 10/19/19 10/19/19 23:27 04:21 04:21 WBC RBC Hgb Hct MCH MCHC RDW Plt Count Lymph % (Auto) Kane % (Auto) Lymph # Kane # Seg Neutrophils % Seg Neuts % (Manual) Lymphocytes % (Manual) Seg Neutrophils # Seg Neutrophils # Man Lymphocytes # (Manual) Monocytes # (Manual) POC ABG pH ABG pH POC ABG pCO2 POC ABG pO2 ABG pO2 ABG HCO3 ABG Base Excess ABG Hemoglobin Oxyhemoglobin Sodium Potassium Chloride 108.4 H Carbon Dioxide BUN 22 H Creatinine 0.5 L Glucose 123 H POC Glucose 127 H Calcium 7.4 L Phosphorus 1.80 L Magnesium Direct Bilirubin AST Alkaline Phosphatase C-Reactive Protein Serum Total Protein Total Protein Albumin Prealbumin Rrvoi-9-Gjcrezash Nrpoi-2-Kshfngvmx Gamma Globulins PEP Interpretation Triglycerides Urine pH Urine Creatinine Urine Total Protein Vancomycin Trough Digoxin 0.7 L Crossmatch 10/19/19 10/19/19 10/19/19 05:00 05:35 11:26 WBC RBC Hgb Hct MCH MCHC RDW Plt Count Lymph % (Auto) [place] % (Auto) Lymph # [place] # Seg Neutrophils % Seg Neuts % (Manual) Lymphocytes % (Manual) Seg Neutrophils # Seg Neutrophils # Man Lymphocytes # (Manual) Monocytes # (Manual) POC ABG pH ABG pH 7.456 H POC ABG pCO2 POC ABG pO2 ABG pO2 78.8 L ABG HCO3 ABG Base Excess ABG Hemoglobin 5.6 L Oxyhemoglobin Sodium Potassium Chloride Carbon Dioxide BUN Creatinine Glucose POC Glucose 124 H 111 H Calcium Phosphorus Magnesium Direct Bilirubin AST Alkaline Phosphatase C-Reactive Protein Serum Total Protein Total Protein Albumin Prealbumin Dpryf-2-Fgoieswsz Upvuo-3-Nhwzfaqnr Gamma Globulins PEP Interpretation Triglycerides Urine pH Urine Creatinine Urine Total Protein Vancomycin Trough Digoxin Crossmatch 10/19/19 10/20/19 10/20/19 23:23 04:50 05:17 WBC RBC Hgb Hct MCH MCHC RDW Plt Count Lymph % (Auto) [place] % (Auto) Lymph # [place] # Seg Neutrophils % Seg Neuts % (Manual) Lymphocytes % (Manual) Seg Neutrophils # Seg Neutrophils # Man Lymphocytes # (Manual) Monocytes # (Manual) POC ABG pH ABG pH POC ABG pCO2 POC ABG pO2 ABG pO2 ABG HCO3 ABG Base Excess ABG Hemoglobin Oxyhemoglobin Sodium Potassium Chloride 108.1 H Carbon Dioxide BUN Creatinine 0.4 L Glucose 134 H POC Glucose 129 H 123 H Calcium 7.1 L Phosphorus Magnesium Direct Bilirubin AST Alkaline Phosphatase C-Reactive Protein Serum Total Protein Total Protein Albumin Prealbumin Klcad-5-Ozybldfeg Myekf-7-Oedyubaij Gamma Globulins PEP Interpretation Triglycerides Urine pH Urine Creatinine Urine Total Protein Vancomycin Trough Digoxin Crossmatch 10/20/19 10/20/19 10/21/19 11:40 19:06 05:08 WBC RBC Hgb Hct MCH MCHC RDW Plt Count Lymph % (Auto) [place] % (Auto) Lymph # [place] # Seg Neutrophils % Seg Neuts % (Manual) Lymphocytes % (Manual) Seg Neutrophils # Seg Neutrophils # Man Lymphocytes # (Manual) Monocytes # (Manual) POC ABG pH ABG pH POC ABG pCO2 POC ABG pO2 ABG pO2 ABG HCO3 ABG Base Excess ABG Hemoglobin Oxyhemoglobin Sodium Potassium Chloride Carbon Dioxide BUN Creatinine Glucose POC Glucose 139 H 117 H 131 H Calcium Phosphorus Magnesium Direct Bilirubin AST Alkaline Phosphatase C-Reactive Protein Serum Total Protein Total Protein Albumin Prealbumin Xzagj-1-Ojzxuqhpo Ektzn-3-Zfplwtuov Gamma Globulins PEP Interpretation Triglycerides Urine pH Urine Creatinine Urine Total Protein Vancomycin Trough Digoxin Crossmatch 10/21/19 10/21/19 10/21/19 05:30 12:04 17:31 WBC RBC Hgb Hct MCH MCHC RDW Plt Count Lymph % (Auto) [place] % (Auto) Lymph # [place] # Seg Neutrophils % Seg Neuts % (Manual) Lymphocytes % (Manual) Seg Neutrophils # Seg Neutrophils # Man Lymphocytes # (Manual) Monocytes # (Manual) POC ABG pH ABG pH POC ABG pCO2 POC ABG pO2 ABG pO2 ABG HCO3 ABG Base Excess ABG Hemoglobin Oxyhemoglobin Sodium Potassium Chloride 107.8 H Carbon Dioxide BUN Creatinine 0.5 L Glucose 119 H POC Glucose 119 H 110 H Calcium 7.6 L Phosphorus Magnesium Direct Bilirubin AST Alkaline Phosphatase C-Reactive Protein Serum Total Protein Total Protein Albumin Prealbumin Nveod-8-Vddpywklu Kaqrt-8-Mkzvywiir Gamma Globulins PEP Interpretation Triglycerides Urine pH Urine Creatinine Urine Total Protein Vancomycin Trough Digoxin Crossmatch 10/22/19 10/22/19 10/22/19 05:14 05:37 12:07 WBC RBC Hgb Hct MCH MCHC RDW Plt Count Lymph % (Auto) [place] % (Auto) Lymph # [place] # Seg Neutrophils % Seg Neuts % (Manual) Lymphocytes % (Manual) Seg Neutrophils # Seg Neutrophils # Man Lymphocytes # (Manual) Monocytes # (Manual) POC ABG pH ABG pH POC ABG pCO2 POC ABG pO2 ABG pO2 ABG HCO3 ABG Base Excess ABG Hemoglobin Oxyhemoglobin Sodium Potassium Chloride Carbon Dioxide BUN Creatinine 0.5 L Glucose 116 H POC Glucose 110 H 126 H Calcium 7.7 L Phosphorus Magnesium Direct Bilirubin AST Alkaline Phosphatase C-Reactive Protein Serum Total Protein Total Protein Albumin Prealbumin Ezhgd-7-Qsxfhcbyk Bdcgz-5-Ackmopqar Gamma Globulins PEP Interpretation Triglycerides Urine pH Urine Creatinine Urine Total Protein Vancomycin Trough Digoxin Crossmatch 10/22/19 10/22/19 10/23/19 18:36 23:19 04:39 WBC RBC Hgb Hct MCH MCHC RDW Plt Count Lymph % (Auto) [place] % (Auto) Lymph # [place] # Seg Neutrophils % Seg Neuts % (Manual) Lymphocytes % (Manual) Seg Neutrophils # Seg Neutrophils # Man Lymphocytes # (Manual) Monocytes # (Manual) POC ABG pH ABG pH POC ABG pCO2 POC ABG pO2 ABG pO2 ABG HCO3 ABG Base Excess ABG Hemoglobin Oxyhemoglobin Sodium Potassium Chloride Carbon Dioxide BUN Creatinine Glucose POC Glucose 120 H 127 H 112 H Calcium Phosphorus Magnesium Direct Bilirubin AST Alkaline Phosphatase C-Reactive Protein Serum Total Protein Total Protein Albumin Prealbumin Swwks-2-Kidtfkuah Dnhqw-8-Ssryjpjdp Gamma Globulins PEP Interpretation Triglycerides Urine pH Urine Creatinine Urine Total Protein Vancomycin Trough Digoxin Crossmatch 10/23/19 10/23/19 10/23/19 04:47 05:15 10:44 WBC 18.3 H RBC 2.33 L Hgb 7.0 L Hct 21.5 L MCH MCHC RDW 16.2 H Plt Count Lymph % (Auto) 4.9 L [place] % (Auto) 8.1 H Lymph # 0.9 L [place] # 1.5 H Seg Neutrophils % 86.7 H Seg Neuts % (Manual) Lymphocytes % (Manual) Seg Neutrophils # 15.9 H Seg Neutrophils # Man Lymphocytes # (Manual) Monocytes # (Manual) POC ABG pH ABG pH POC ABG pCO2 POC ABG pO2 ABG pO2 68.9 L ABG HCO3 28.7 H ABG Base Excess 3.4 H ABG Hemoglobin 6.6 L Oxyhemoglobin 94.1 L Sodium Potassium Chloride Carbon Dioxide BUN Creatinine 0.5 L Glucose 165 H POC Glucose Calcium 7.4 L Phosphorus Magnesium Direct Bilirubin AST Alkaline Phosphatase C-Reactive Protein Serum Total Protein Total Protein Albumin Prealbumin Zmfvc-8-Sxpoxpylg Zzhts-5-Egyvuvdfy Gamma Globulins PEP Interpretation Triglycerides Urine pH Urine Creatinine Urine Total Protein Vancomycin Trough Digoxin Crossmatch 10/23/19 10/23/19 10/23/19 10:44 11:46 11:50 WBC RBC Hgb Hct MCH MCHC RDW Plt Count Lymph % (Auto) [place] % (Auto) Lymph # [place] # Seg Neutrophils % Seg Neuts % (Manual) Lymphocytes % (Manual) Seg Neutrophils # Seg Neutrophils # Man Lymphocytes # (Manual) Monocytes # (Manual) POC ABG pH ABG pH POC ABG pCO2 POC ABG pO2 ABG pO2 ABG HCO3 ABG Base Excess ABG Hemoglobin Oxyhemoglobin Sodium Potassium Chloride Carbon Dioxide BUN Creatinine Glucose POC Glucose 138 H Calcium Phosphorus Magnesium Direct Bilirubin 0.7 H AST Alkaline Phosphatase C-Reactive Protein Serum Total Protein Total Protein 4.5 L Albumin 1.2 L Prealbumin Eywlh-0-Xulscaktt Hzcjy-1-Riaoyeune Gamma Globulins PEP Interpretation Triglycerides Urine pH Urine Creatinine Urine Total Protein Vancomycin Trough Digoxin Crossmatch See Detail 10/23/19 10/24/19 10/24/19 17:53 00:07 05:05 WBC RBC Hgb Hct MCH MCHC RDW Plt Count Lymph % (Auto) [place] % (Auto) Lymph # [place] # Seg Neutrophils % Seg Neuts % (Manual) Lymphocytes % (Manual) Seg Neutrophils # Seg Neutrophils # Man Lymphocytes # (Manual) Monocytes # (Manual) POC ABG pH ABG pH POC ABG pCO2 POC ABG pO2 ABG pO2 ABG HCO3 ABG Base Excess ABG Hemoglobin Oxyhemoglobin Sodium Potassium 3.5 L Chloride Carbon Dioxide BUN Creatinine 0.5 L Glucose 116 H POC Glucose 137 H 110 H Calcium 8.0 L Phosphorus Magnesium Direct Bilirubin AST Alkaline Phosphatase C-Reactive Protein Serum Total Protein Total Protein Albumin Prealbumin Drqwu-8-Irlkdtwjq Qsgbb-5-Hzbgfsere Gamma Globulins PEP Interpretation Triglycerides Urine pH Urine Creatinine Urine Total Protein Vancomycin Trough Digoxin Crossmatch 10/24/19 10/24/19 10/24/19 05:05 11:56 13:00 WBC 13.0 H RBC 2.73 L Hgb 8.0 L Hct 24.2 L MCH MCHC RDW 17.9 H Plt Count Lymph % (Auto) 7.0 L [place] % (Auto) 9.5 H Lymph # 0.9 L [place] # 1.2 H Seg Neutrophils % 82.7 H Seg Neuts % (Manual) Lymphocytes % (Manual) Seg Neutrophils # 10.7 H Seg Neutrophils # Man Lymphocytes # (Manual) Monocytes # (Manual) POC ABG pH ABG pH POC ABG pCO2 POC ABG pO2 ABG pO2 ABG HCO3 ABG Base Excess ABG Hemoglobin Oxyhemoglobin Sodium Potassium Chloride Carbon Dioxide BUN Creatinine Glucose POC Glucose 159 H Calcium Phosphorus Magnesium Direct Bilirubin AST Alkaline Phosphatase C-Reactive Protein Serum Total Protein Total Protein Albumin Prealbumin Nokce-2-Scdyiosyx Wrsng-9-Ejinazbgr Gamma Globulins PEP Interpretation Triglycerides 216 H Urine pH Urine Creatinine Urine Total Protein Vancomycin Trough Digoxin Crossmatch 10/24/19 10/24/19 10/25/19 17:42 23:45 04:19 WBC RBC Hgb Hct MCH MCHC RDW Plt Count Lymph % (Auto) [place] % (Auto) Lymph # [place] # Seg Neutrophils % Seg Neuts % (Manual) Lymphocytes % (Manual) Seg Neutrophils # Seg Neutrophils # Man Lymphocytes # (Manual) Monocytes # (Manual) POC ABG pH ABG pH POC ABG pCO2 POC ABG pO2 ABG pO2 ABG HCO3 ABG Base Excess ABG Hemoglobin Oxyhemoglobin Sodium 147 H Potassium Chloride Carbon Dioxide 33 H BUN Creatinine 0.5 L Glucose 111 H POC Glucose 120 H 116 H Calcium Phosphorus Magnesium Direct Bilirubin AST Alkaline Phosphatase C-Reactive Protein Serum Total Protein Total Protein 5.7 L D Albumin 2.5 L Prealbumin Agkim-4-Yrttnctla Uetbu-0-Zwsvgchfb Gamma Globulins PEP Interpretation Triglycerides 230 H Urine pH Urine Creatinine Urine Total Protein Vancomycin Trough Digoxin Crossmatch 10/25/19 10/25/19 10/25/19 04:19 05:31 12:20 WBC RBC 2.69 L Hgb 8.1 L Hct 23.9 L MCH MCHC RDW 17.3 H Plt Count Lymph % (Auto) [place] % (Auto) Lymph # [place] # Seg Neutrophils % Seg Neuts % (Manual) Lymphocytes % (Manual) Seg Neutrophils # Seg Neutrophils # Man Lymphocytes # (Manual) Monocytes # (Manual) POC ABG pH ABG pH POC ABG pCO2 POC ABG pO2 ABG pO2 ABG HCO3 ABG Base Excess ABG Hemoglobin Oxyhemoglobin Sodium Potassium Chloride Carbon Dioxide BUN Creatinine Glucose POC Glucose 126 H 114 H Calcium Phosphorus Magnesium Direct Bilirubin AST Alkaline Phosphatase C-Reactive Protein Serum Total Protein Total Protein Albumin Prealbumin Dgviz-5-Vxviryrks Rldui-9-Xlbuxgotb Gamma Globulins PEP Interpretation Triglycerides Urine pH Urine Creatinine Urine Total Protein Vancomycin Trough Digoxin Crossmatch 10/25/19 10/25/19 10/26/19 18:30 23:09 06:15 WBC RBC Hgb Hct MCH MCHC RDW Plt Count Lymph % (Auto) [place] % (Auto) Lymph # [place] # Seg Neutrophils % Seg Neuts % (Manual) Lymphocytes % (Manual) Seg Neutrophils # Seg Neutrophils # Man Lymphocytes # (Manual) Monocytes # (Manual) POC ABG pH ABG pH POC ABG pCO2 POC ABG pO2 ABG pO2 ABG HCO3 ABG Base Excess ABG Hemoglobin Oxyhemoglobin Sodium Potassium 3.5 L Chloride Carbon Dioxide BUN Creatinine 0.5 L Glucose 112 H POC Glucose 121 H 107 H Calcium 8.3 L Phosphorus Magnesium Direct Bilirubin AST Alkaline Phosphatase 148 H C-Reactive Protein Serum Total Protein Total Protein 5.9 L Albumin 2.4 L Prealbumin Csxzz-2-Rcaccwobm Ntyju-5-Oqyatpxvb Gamma Globulins PEP Interpretation Triglycerides Urine pH Urine Creatinine Urine Total Protein Vancomycin Trough Digoxin Crossmatch 10/26/19 10/26/19 10/26/19 06:15 12:21 17:35 WBC RBC Hgb Hct MCH MCHC RDW Plt Count Lymph % (Auto) [place] % (Auto) Lymph # [place] # Seg Neutrophils % Seg Neuts % (Manual) Lymphocytes % (Manual) Seg Neutrophils # Seg Neutrophils # Man Lymphocytes # (Manual) Monocytes # (Manual) POC ABG pH ABG pH POC ABG pCO2 POC ABG pO2 ABG pO2 ABG HCO3 ABG Base Excess ABG Hemoglobin Oxyhemoglobin Sodium Potassium Chloride Carbon Dioxide BUN Creatinine Glucose POC Glucose 134 H 141 H Calcium Phosphorus Magnesium Direct Bilirubin AST Alkaline Phosphatase C-Reactive Protein Serum Total Protein Total Protein Albumin Prealbumin Lorep-1-Hidcghkju Pymvs-5-Dfxvgbgym Gamma Globulins PEP Interpretation Triglycerides 185 H Urine pH Urine Creatinine Urine Total Protein Vancomycin Trough Digoxin Crossmatch 10/26/19 10/27/19 10/27/19 Unknown 04:30 11:33 WBC RBC Hgb Hct MCH MCHC RDW Plt Count Lymph % (Auto) [place] % (Auto) Lymph # [place] # Seg Neutrophils % Seg Neuts % (Manual) Lymphocytes % (Manual) Seg Neutrophils # Seg Neutrophils # Man Lymphocytes # (Manual) Monocytes # (Manual) POC ABG pH ABG pH POC ABG pCO2 POC ABG pO2 ABG pO2 ABG HCO3 ABG Base Excess ABG Hemoglobin Oxyhemoglobin Sodium Potassium 3.2 L Chloride Carbon Dioxide BUN 23 H Creatinine 0.6 L Glucose 130 H POC Glucose 131 H Calcium 7.9 L Phosphorus Magnesium Direct Bilirubin AST Alkaline Phosphatase C-Reactive Protein Serum Total Protein Total Protein Albumin Prealbumin Xwtto-7-Upqiyayet Ulsbg-6-Uetcqdogt Gamma Globulins PEP Interpretation Triglycerides Urine pH 9.0 H Urine Creatinine Urine Total Protein Vancomycin Trough Digoxin Crossmatch 10/27/19 10/28/19 10/28/19 17:45 05:25 05:49 WBC RBC 2.85 L Hgb 8.3 L Hct 26.8 L MCH MCHC 31 L RDW 17.4 H Plt Count Lymph % (Auto) 8.9 L [place] % (Auto) 14.3 H Lymph # 0.8 L [place] # 1.3 H Seg Neutrophils % 76.5 H Seg Neuts % (Manual) Lymphocytes % (Manual) Seg Neutrophils # Seg Neutrophils # Man Lymphocytes # (Manual) Monocytes # (Manual) POC ABG pH ABG pH POC ABG pCO2 POC ABG pO2 ABG pO2 ABG HCO3 ABG Base Excess ABG Hemoglobin Oxyhemoglobin Sodium Potassium Chloride Carbon Dioxide BUN Creatinine Glucose POC Glucose 121 H 120 H Calcium Phosphorus Magnesium Direct Bilirubin AST Alkaline Phosphatase C-Reactive Protein Serum Total Protein Total Protein Albumin Prealbumin Cfpnn-4-Ohyrxhhyr Zenyt-1-Zcpiyhhcl Gamma Globulins PEP Interpretation Triglycerides Urine pH Urine Creatinine Urine Total Protein Vancomycin Trough Digoxin Crossmatch 10/28/19 10/28/19 10/28/19 07:19 12:07 18:21 WBC RBC Hgb Hct MCH MCHC RDW Plt Count Lymph % (Auto) [place] % (Auto) Lymph # [place] # Seg Neutrophils % Seg Neuts % (Manual) Lymphocytes % (Manual) Seg Neutrophils # Seg Neutrophils # Man Lymphocytes # (Manual) Monocytes # (Manual) POC ABG pH ABG pH POC ABG pCO2 POC ABG pO2 ABG pO2 ABG HCO3 ABG Base Excess ABG Hemoglobin Oxyhemoglobin Sodium Potassium Chloride Carbon Dioxide BUN 23 H Creatinine 0.5 L Glucose 129 H POC Glucose 127 H 130 H Calcium 8.0 L Phosphorus Magnesium Direct Bilirubin AST Alkaline Phosphatase C-Reactive Protein Serum Total Protein Total Protein Albumin Prealbumin Oessb-8-Adlkwnlpy Vsamb-2-Uixzcxikp Gamma Globulins PEP Interpretation Triglycerides Urine pH Urine Creatinine Urine Total Protein Vancomycin Trough Digoxin Crossmatch 10/28/19 10/29/19 10/29/19 23:30 05:30 05:30 WBC 11.2 H RBC 3.36 L Hgb 9.7 L Hct 29.4 L MCH MCHC RDW 16.7 H Plt Count Lymph % (Auto) [place] % (Auto) 16.0 H Lymph # [place] # 1.8 H Seg Neutrophils % 70.2 H Seg Neuts % (Manual) Lymphocytes % (Manual) Seg Neutrophils # 7.9 H Seg Neutrophils # Man Lymphocytes # (Manual) Monocytes # (Manual) POC ABG pH ABG pH POC ABG pCO2 POC ABG pO2 ABG pO2 ABG HCO3 ABG Base Excess ABG Hemoglobin Oxyhemoglobin Sodium Potassium Chloride Carbon Dioxide BUN 23 H Creatinine 0.5 L Glucose POC Glucose 130 H Calcium 8.3 L Phosphorus Magnesium Direct Bilirubin AST Alkaline Phosphatase C-Reactive Protein Serum Total Protein Total Protein Albumin Prealbumin Ccpgy-3-Zvjbqaboo Qvtkq-2-Vpxbbcmwu Gamma Globulins PEP Interpretation Triglycerides Urine pH Urine Creatinine Urine Total Protein Vancomycin Trough Digoxin Crossmatch 10/29/19 10/29/19 10/29/19 05:52 13:10 18:02 WBC RBC Hgb Hct MCH MCHC RDW Plt Count Lymph % (Auto) [place] % (Auto) Lymph # [place] # Seg Neutrophils % Seg Neuts % (Manual) Lymphocytes % (Manual) Seg Neutrophils # Seg Neutrophils # Man Lymphocytes # (Manual) Monocytes # (Manual) POC ABG pH ABG pH POC ABG pCO2 POC ABG pO2 ABG pO2 ABG HCO3 ABG Base Excess ABG Hemoglobin Oxyhemoglobin Sodium Potassium Chloride Carbon Dioxide BUN Creatinine Glucose POC Glucose 111 H 140 H 140 H Calcium Phosphorus Magnesium Direct Bilirubin AST Alkaline Phosphatase C-Reactive Protein Serum Total Protein Total Protein Albumin Prealbumin Dvqkd-2-Rtmgoozxp Cqefo-8-Nayvvcjoq Gamma Globulins PEP Interpretation Triglycerides Urine pH Urine Creatinine Urine Total Protein Vancomycin Trough Digoxin Crossmatch 10/29/19 10/30/19 10/30/19 23:58 01:05 05:15 WBC RBC Hgb Hct MCH MCHC RDW Plt Count Lymph % (Auto) [place] % (Auto) Lymph # [place] # Seg Neutrophils % Seg Neuts % (Manual) Lymphocytes % (Manual) Seg Neutrophils # Seg Neutrophils # Man Lymphocytes # (Manual) Monocytes # (Manual) POC ABG pH ABG pH POC ABG pCO2 62.0 H POC ABG pO2 168 H ABG pO2 ABG HCO3 ABG Base Excess ABG Hemoglobin Oxyhemoglobin Sodium 147 H Potassium Chloride 107.8 H Carbon Dioxide BUN 26 H Creatinine 0.5 L Glucose 139 H POC Glucose 161 H Calcium Phosphorus Magnesium 2.40 H Direct Bilirubin AST Alkaline Phosphatase C-Reactive Protein Serum Total Protein Total Protein Albumin Prealbumin Zbsbt-0-Zyrjtlrnn Zhtiy-9-Bfbqbohrm Gamma Globulins PEP Interpretation Triglycerides Urine pH Urine Creatinine Urine Total Protein Vancomycin Trough Digoxin Crossmatch 10/30/19 10/30/19 10/30/19 05:15 06:32 09:44 WBC 13.8 H RBC 3.59 L Hgb 10.1 L Hct 32.4 L MCH MCHC 31 L RDW 17.4 H Plt Count Lymph % (Auto) 11.2 L [place] % (Auto) 13.6 H Lymph # [place] # 1.9 H Seg Neutrophils % 75.1 H Seg Neuts % (Manual) Lymphocytes % (Manual) Seg Neutrophils # 10.4 H Seg Neutrophils # Man Lymphocytes # (Manual) Monocytes # (Manual) POC ABG pH ABG pH POC ABG pCO2 51.7 H POC ABG pO2 111 H ABG pO2 ABG HCO3 ABG Base Excess ABG Hemoglobin Oxyhemoglobin Sodium Potassium Chloride Carbon Dioxide BUN Creatinine Glucose POC Glucose 141 H Calcium Phosphorus Magnesium Direct Bilirubin AST Alkaline Phosphatase C-Reactive Protein Serum Total Protein Total Protein Albumin Prealbumin Vjnvu-1-Hurwqqkka Xqzdp-7-Asfhpikce Gamma Globulins PEP Interpretation Triglycerides Urine pH Urine Creatinine Urine Total Protein Vancomycin Trough Digoxin Crossmatch 10/30/19 10/31/19 10/31/19 18:10 04:18 04:18 WBC 11.7 H RBC 3.11 L Hgb 9.0 L Hct 27.9 L MCH MCHC RDW 17.1 H Plt Count Lymph % (Auto) [place] % (Auto) Lymph # [place] # Seg Neutrophils % Seg Neuts % (Manual) Lymphocytes % (Manual) Seg Neutrophils # Seg Neutrophils # Man Lymphocytes # (Manual) Monocytes # (Manual) POC ABG pH ABG pH POC ABG pCO2 POC ABG pO2 ABG pO2 ABG HCO3 ABG Base Excess ABG Hemoglobin Oxyhemoglobin Sodium 148 H Potassium Chloride 108.7 H Carbon Dioxide BUN 37 H Creatinine 0.7 L Glucose 102 H POC Glucose 131 H Calcium Phosphorus Magnesium Direct Bilirubin AST Alkaline Phosphatase C-Reactive Protein Serum Total Protein Total Protein Albumin Prealbumin Gxssd-2-Memuuxbel Kswfz-9-Wqetdoqfp Gamma Globulins PEP Interpretation Triglycerides Urine pH Urine Creatinine Urine Total Protein Vancomycin Trough Digoxin Crossmatch 10/31/19 10/31/19 10/31/19 11:32 12:55 18:10 WBC RBC Hgb Hct MCH MCHC RDW Plt Count Lymph % (Auto) [place] % (Auto) Lymph # [place] # Seg Neutrophils % Seg Neuts % (Manual) Lymphocytes % (Manual) Seg Neutrophils # Seg Neutrophils # Man Lymphocytes # (Manual) Monocytes # (Manual) POC ABG pH ABG pH POC ABG pCO2 57.9 H POC ABG pO2 135 H ABG pO2 ABG HCO3 ABG Base Excess ABG Hemoglobin Oxyhemoglobin Sodium Potassium Chloride Carbon Dioxide BUN Creatinine Glucose POC Glucose 120 H Calcium Phosphorus Magnesium Direct Bilirubin AST Alkaline Phosphatase C-Reactive Protein Serum Total Protein Total Protein Albumin Prealbumin Fmlyr-9-Xgporctqh Kmyvy-0-Ifjnwpkua Gamma Globulins PEP Interpretation Triglycerides Urine pH Urine Creatinine Urine Total Protein Vancomycin Trough 41.7 H Digoxin Crossmatch 10/31/19 11/01/19 11/01/19 23:08 05:30 05:30 WBC 14.6 H RBC 3.13 L Hgb 8.9 L Hct 27.7 L MCH MCHC RDW 17.0 H Plt Count Lymph % (Auto) [place] % (Auto) Lymph # [place] # Seg Neutrophils % Seg Neuts % (Manual) Lymphocytes % (Manual) Seg Neutrophils # Seg Neutrophils # Man Lymphocytes # (Manual) Monocytes # (Manual) POC ABG pH ABG pH POC ABG pCO2 POC ABG pO2 ABG pO2 ABG HCO3 ABG Base Excess ABG Hemoglobin Oxyhemoglobin Sodium 149 H Potassium Chloride 109.0 H Carbon Dioxide BUN 26 H Creatinine 0.7 L Glucose 129 H POC Glucose 109 H Calcium Phosphorus Magnesium Direct Bilirubin AST Alkaline Phosphatase C-Reactive Protein Serum Total Protein Total Protein Albumin Prealbumin Lfvfq-9-Hycysipyp Pvqvl-8-Zqjdnepoz Gamma Globulins PEP Interpretation Triglycerides Urine pH Urine Creatinine Urine Total Protein Vancomycin Trough Digoxin Crossmatch 11/01/19 11/01/19 11/01/19 06:09 06:10 11:52 WBC RBC Hgb Hct MCH MCHC RDW Plt Count Lymph % (Auto) [place] % (Auto) Lymph # [place] # Seg Neutrophils % Seg Neuts % (Manual) Lymphocytes % (Manual) Seg Neutrophils # Seg Neutrophils # Man Lymphocytes # (Manual) Monocytes # (Manual) POC ABG pH ABG pH POC ABG pCO2 51.3 H POC ABG pO2 71 L ABG pO2 ABG HCO3 ABG Base Excess ABG Hemoglobin Oxyhemoglobin Sodium Potassium Chloride Carbon Dioxide BUN Creatinine Glucose POC Glucose 113 H 106 H Calcium Phosphorus Magnesium Direct Bilirubin AST Alkaline Phosphatase C-Reactive Protein Serum Total Protein Total Protein Albumin Prealbumin Bpukl-0-Kozchzbdv Lijxg-0-Nzcoddvwy Gamma Globulins PEP Interpretation Triglycerides Urine pH Urine Creatinine Urine Total Protein Vancomycin Trough Digoxin Crossmatch 11/01/19 11/02/19 11/02/19 18:18 03:40 03:40 WBC RBC 2.36 L Hgb 7.2 L Hct 20.8 L D MCH MCHC 35 H RDW 16.8 H Plt Count Lymph % (Auto) [place] % (Auto) Lymph # [place] # Seg Neutrophils % Seg Neuts % (Manual) Lymphocytes % (Manual) Seg Neutrophils # Seg Neutrophils # Man Lymphocytes # (Manual) Monocytes # (Manual) POC ABG pH ABG pH POC ABG pCO2 POC ABG pO2 ABG pO2 ABG HCO3 ABG Base Excess ABG Hemoglobin Oxyhemoglobin Sodium 157 H D Potassium 3.0 L D Chloride 117.2 H Carbon Dioxide BUN 23 H Creatinine 0.6 L Glucose 101 H POC Glucose 120 H Calcium 6.4 L D Phosphorus Magnesium Direct Bilirubin AST Alkaline Phosphatase C-Reactive Protein Serum Total Protein Total Protein Albumin Prealbumin Hdnzf-0-Peghxwjwx Aznjw-0-Beecgrzti Gamma Globulins PEP Interpretation Triglycerides Urine pH Urine Creatinine Urine Total Protein Vancomycin Trough Digoxin Crossmatch 11/02/19 11/02/19 11/02/19 04:48 05:30 12:43 WBC RBC Hgb Hct MCH MCHC RDW Plt Count Lymph % (Auto) [place] % (Auto) Lymph # [place] # Seg Neutrophils % Seg Neuts % (Manual) Lymphocytes % (Manual) Seg Neutrophils # Seg Neutrophils # Man Lymphocytes # (Manual) Monocytes # (Manual) POC ABG pH ABG pH POC ABG pCO2 50.1 H POC ABG pO2 74 L ABG pO2 ABG HCO3 ABG Base Excess ABG Hemoglobin Oxyhemoglobin Sodium 149 H D Potassium Chloride 110.0 H Carbon Dioxide BUN 23 H Creatinine 0.6 L Glucose POC Glucose 109 H Calcium 8.1 L D Phosphorus Magnesium 2.40 H Direct Bilirubin AST Alkaline Phosphatase C-Reactive Protein Serum Total Protein Total Protein Albumin Prealbumin Mjdet-0-Icubetvwq Tbwop-5-Imikbmofa Gamma Globulins PEP Interpretation Triglycerides Urine pH Urine Creatinine Urine Total Protein Vancomycin Trough Digoxin Crossmatch 11/03/19 11/03/19 11/03/19 03:42 03:42 04:13 WBC RBC 2.93 L Hgb 8.5 L Hct 25.8 L MCH MCHC RDW 16.9 H Plt Count Lymph % (Auto) [place] % (Auto) Lymph # [place] # Seg Neutrophils % Seg Neuts % (Manual) Lymphocytes % (Manual) Seg Neutrophils # Seg Neutrophils # Man Lymphocytes # (Manual) Monocytes # (Manual) POC ABG pH 7.540 H ABG pH POC ABG pCO2 POC ABG pO2 51 L ABG pO2 ABG HCO3 ABG Base Excess ABG Hemoglobin Oxyhemoglobin Sodium 147 H Potassium 3.5 L D Chloride 108.6 H Carbon Dioxide BUN Creatinine 0.6 L Glucose 109 H POC Glucose Calcium 8.3 L Phosphorus Magnesium Direct Bilirubin AST Alkaline Phosphatase C-Reactive Protein Serum Total Protein Total Protein Albumin Prealbumin Eovds-6-Wkaxfgwmt Dfzxc-3-Qjzizcyzr Gamma Globulins PEP Interpretation Triglycerides Urine pH Urine Creatinine Urine Total Protein Vancomycin Trough Digoxin Crossmatch 11/03/19 11/03/19 11/03/19 04:28 12:04 23:02 WBC RBC Hgb Hct MCH MCHC RDW Plt Count Lymph % (Auto) [place] % (Auto) Lymph # [place] # Seg Neutrophils % Seg Neuts % (Manual) Lymphocytes % (Manual) Seg Neutrophils # Seg Neutrophils # Man Lymphocytes # (Manual) Monocytes # (Manual) POC ABG pH ABG pH POC ABG pCO2 45.4 H POC ABG pO2 ABG pO2 ABG HCO3 ABG Base Excess ABG Hemoglobin Oxyhemoglobin Sodium Potassium Chloride Carbon Dioxide BUN Creatinine Glucose POC Glucose 109 H 111 H Calcium Phosphorus Magnesium Direct Bilirubin AST Alkaline Phosphatase C-Reactive Protein Serum Total Protein Total Protein Albumin Prealbumin Hrugk-9-Jdmlojrju Iiocc-1-Egcuchwwo Gamma Globulins PEP Interpretation Triglycerides Urine pH Urine Creatinine Urine Total Protein Vancomycin Trough Digoxin Crossmatch 11/04/19 11/04/19 11/04/19 05:00 05:00 05:19 WBC RBC 2.96 L Hgb 8.6 L Hct 25.5 L MCH MCHC RDW 16.7 H Plt Count Lymph % (Auto) [place] % (Auto) Lymph # Kane # Seg Neutrophils % Seg Neuts % (Manual) Lymphocytes % (Manual) Seg Neutrophils # Seg Neutrophils # Man Lymphocytes # (Manual) Monocytes # (Manual) POC ABG pH ABG pH POC ABG pCO2 POC ABG pO2 ABG pO2 ABG HCO3 ABG Base Excess ABG Hemoglobin Oxyhemoglobin Sodium Potassium 3.5 L Chloride Carbon Dioxide BUN Creatinine 0.5 L Glucose 111 H POC Glucose 106 H Calcium 8.1 L Phosphorus Magnesium Direct Bilirubin AST Alkaline Phosphatase C-Reactive Protein Serum Total Protein Total Protein Albumin Prealbumin Amdvm-0-Fopalrscn Fqtic-0-Wjuuhszny Gamma Globulins PEP Interpretation Triglycerides Urine pH Urine Creatinine Urine Total Protein Vancomycin Trough Digoxin Crossmatch 11/04/19 11/05/19 11/05/19 12:40 00:28 04:19 WBC 12.4 H RBC 2.98 L Hgb 8.5 L Hct 25.5 L MCH MCHC RDW 16.6 H Plt Count Lymph % (Auto) [place] % (Auto) Lymph # [place] # Seg Neutrophils % Seg Neuts % (Manual) Lymphocytes % (Manual) Seg Neutrophils # Seg Neutrophils # Man Lymphocytes # (Manual) Monocytes # (Manual) POC ABG pH ABG pH POC ABG pCO2 POC ABG pO2 ABG pO2 ABG HCO3 ABG Base Excess ABG Hemoglobin Oxyhemoglobin Sodium Potassium Chloride Carbon Dioxide BUN Creatinine Glucose POC Glucose 109 H 132 H Calcium Phosphorus Magnesium Direct Bilirubin AST Alkaline Phosphatase C-Reactive Protein Serum Total Protein Total Protein Albumin Prealbumin Indxm-9-Nvqvyymjn Gpsyy-8-Hswqkkfpk Gamma Globulins PEP Interpretation Triglycerides Urine pH Urine Creatinine Urine Total Protein Vancomycin Trough Digoxin Crossmatch 11/05/19 11/05/19 11/05/19 04:19 05:40 13:14 WBC RBC Hgb Hct MCH MCHC RDW Plt Count Lymph % (Auto) [place] % (Auto) Lymph # [place] # Seg Neutrophils % Seg Neuts % (Manual) Lymphocytes % (Manual) Seg Neutrophils # Seg Neutrophils # Man Lymphocytes # (Manual) Monocytes # (Manual) POC ABG pH ABG pH POC ABG pCO2 POC ABG pO2 ABG pO2 ABG HCO3 ABG Base Excess ABG Hemoglobin Oxyhemoglobin Sodium Potassium 3.4 L Chloride Carbon Dioxide BUN Creatinine 0.4 L Glucose 106 H POC Glucose 136 H 145 H Calcium 8.2 L Phosphorus Magnesium Direct Bilirubin AST Alkaline Phosphatase C-Reactive Protein Serum Total Protein Total Protein Albumin Prealbumin Dwiib-8-Tboddjpcu Mbesl-4-Clxkrzjlh Gamma Globulins PEP Interpretation Triglycerides Urine pH Urine Creatinine Urine Total Protein Vancomycin Trough Digoxin Crossmatch 11/05/19 11/05/19 11/06/19 18:29 23:42 05:00 WBC 12.2 H RBC 2.89 L Hgb 8.2 L Hct 24.9 L MCH MCHC RDW 16.4 H Plt Count Lymph % (Auto) [place] % (Auto) Lymph # [place] # Seg Neutrophils % Seg Neuts % (Manual) Lymphocytes % (Manual) Seg Neutrophils # Seg Neutrophils # Man Lymphocytes # (Manual) Monocytes # (Manual) POC ABG pH ABG pH POC ABG pCO2 POC ABG pO2 ABG pO2 ABG HCO3 ABG Base Excess ABG Hemoglobin Oxyhemoglobin Sodium Potassium Chloride Carbon Dioxide BUN Creatinine Glucose POC Glucose 138 H 117 H Calcium Phosphorus Magnesium Direct Bilirubin AST Alkaline Phosphatase C-Reactive Protein Serum Total Protein Total Protein Albumin Prealbumin Snkvj-4-Vnwmwmcpi Sxart-7-Pjurmdbss Gamma Globulins PEP Interpretation Triglycerides Urine pH Urine Creatinine Urine Total Protein Vancomycin Trough Digoxin Crossmatch 11/06/19 11/06/19 11/06/19 05:00 05:22 17:39 WBC RBC Hgb Hct MCH MCHC RDW Plt Count Lymph % (Auto) [place] % (Auto) Lymph # [place] # Seg Neutrophils % Seg Neuts % (Manual) Lymphocytes % (Manual) Seg Neutrophils # Seg Neutrophils # Man Lymphocytes # (Manual) Monocytes # (Manual) POC ABG pH ABG pH POC ABG pCO2 POC ABG pO2 ABG pO2 ABG HCO3 ABG Base Excess ABG Hemoglobin Oxyhemoglobin Sodium Potassium Chloride Carbon Dioxide BUN Creatinine 0.4 L Glucose 114 H POC Glucose 121 H 110 H Calcium 8.2 L Phosphorus Magnesium Direct Bilirubin AST Alkaline Phosphatase C-Reactive Protein Serum Total Protein Total Protein Albumin Prealbumin Ayugt-6-Vfdvdhund Pmyoh-5-Yzasrgdbx Gamma Globulins PEP Interpretation Triglycerides Urine pH Urine Creatinine Urine Total Protein Vancomycin Trough Digoxin Crossmatch 11/06/19 11/07/19 11/07/19 23:29 04:06 04:06 WBC 13.0 H RBC 2.80 L Hgb 7.9 L Hct 24.0 L MCH MCHC RDW 16.5 H Plt Count Lymph % (Auto) 7.0 L [place] % (Auto) Lymph # 0.9 L [place] # Seg Neutrophils % 86.3 H Seg Neuts % (Manual) Lymphocytes % (Manual) Seg Neutrophils # 11.2 H Seg Neutrophils # Man Lymphocytes # (Manual) Monocytes # (Manual) POC ABG pH ABG pH POC ABG pCO2 POC ABG pO2 ABG pO2 ABG HCO3 ABG Base Excess ABG Hemoglobin Oxyhemoglobin Sodium Potassium Chloride Carbon Dioxide BUN Creatinine 0.4 L Glucose 110 H POC Glucose 113 H Calcium 8.2 L Phosphorus Magnesium Direct Bilirubin AST Alkaline Phosphatase C-Reactive Protein Serum Total Protein Total Protein Albumin Prealbumin Yjqhw-5-Mlcibdzpo Rwyzy-1-Bnimoidpz Gamma Globulins PEP Interpretation Triglycerides Urine pH Urine Creatinine Urine Total Protein Vancomycin Trough Digoxin Crossmatch 11/07/19 11/07/19 11/07/19 05:43 12:47 18:19 WBC RBC Hgb Hct MCH MCHC RDW Plt Count Lymph % (Auto) [place] % (Auto) Lymph # [place] # Seg Neutrophils % Seg Neuts % (Manual) Lymphocytes % (Manual) Seg Neutrophils # Seg Neutrophils # Man Lymphocytes # (Manual) Monocytes # (Manual) POC ABG pH ABG pH POC ABG pCO2 POC ABG pO2 ABG pO2 ABG HCO3 ABG Base Excess ABG Hemoglobin Oxyhemoglobin Sodium Potassium Chloride Carbon Dioxide BUN Creatinine Glucose POC Glucose 114 H 120 H 112 H Calcium Phosphorus Magnesium Direct Bilirubin AST Alkaline Phosphatase C-Reactive Protein Serum Total Protein Total Protein Albumin Prealbumin Ufkwf-1-Uqdpsnyve Flbwm-8-Vcrvqaqri Gamma Globulins PEP Interpretation Triglycerides Urine pH Urine Creatinine Urine Total Protein Vancomycin Trough Digoxin Crossmatch 11/08/19 11/08/19 11/08/19 03:45 03:45 11:43 WBC 12.7 H RBC 2.82 L Hgb 7.8 L Hct 24.4 L MCH MCHC RDW 16.5 H Plt Count Lymph % (Auto) 9.4 L [place] % (Auto) Lymph # Kane # 0.9 H Seg Neutrophils % 83.0 H Seg Neuts % (Manual) Lymphocytes % (Manual) Seg Neutrophils # 10.6 H Seg Neutrophils # Man Lymphocytes # (Manual) Monocytes # (Manual) POC ABG pH ABG pH POC ABG pCO2 POC ABG pO2 ABG pO2 ABG HCO3 ABG Base Excess ABG Hemoglobin Oxyhemoglobin Sodium Potassium Chloride Carbon Dioxide BUN Creatinine 0.4 L Glucose 107 H POC Glucose 118 H Calcium Phosphorus Magnesium Direct Bilirubin AST Alkaline Phosphatase C-Reactive Protein Serum Total Protein Total Protein Albumin Prealbumin Lyzjn-8-Zvtllnrzg Gwjnd-1-Nxuyyxnpl Gamma Globulins PEP Interpretation Triglycerides Urine pH Urine Creatinine Urine Total Protein Vancomycin Trough Digoxin Crossmatch 11/08/19 11/09/19 11/09/19 23:45 12:41 12:56 WBC RBC Hgb Hct MCH MCHC RDW Plt Count Lymph % (Auto) [place] % (Auto) Lymph # [place] # Seg Neutrophils % Seg Neuts % (Manual) Lymphocytes % (Manual) Seg Neutrophils # Seg Neutrophils # Man Lymphocytes # (Manual) Monocytes # (Manual) POC ABG pH ABG pH POC ABG pCO2 POC ABG pO2 ABG pO2 ABG HCO3 ABG Base Excess ABG Hemoglobin Oxyhemoglobin Sodium Potassium Chloride Carbon Dioxide BUN Creatinine Glucose POC Glucose 113 H 107 H 122 H Calcium Phosphorus Magnesium Direct Bilirubin AST Alkaline Phosphatase C-Reactive Protein Serum Total Protein Total Protein Albumin Prealbumin Qkkdb-0-Psxuvfwpe Qfvso-5-Yuazuuqmd Gamma Globulins PEP Interpretation Triglycerides Urine pH Urine Creatinine Urine Total Protein Vancomycin Trough Digoxin Crossmatch 11/10/19 11/10/19 11/11/19 05:12 12:20 12:13 WBC RBC Hgb Hct MCH MCHC RDW Plt Count Lymph % (Auto) [place] % (Auto) Lymph # [place] # Seg Neutrophils % Seg Neuts % (Manual) Lymphocytes % (Manual) Seg Neutrophils # Seg Neutrophils # Man Lymphocytes # (Manual) Monocytes # (Manual) POC ABG pH ABG pH POC ABG pCO2 POC ABG pO2 ABG pO2 ABG HCO3 ABG Base Excess ABG Hemoglobin Oxyhemoglobin Sodium Potassium Chloride Carbon Dioxide BUN Creatinine Glucose POC Glucose 127 H 125 H 107 H Calcium Phosphorus Magnesium Direct Bilirubin AST Alkaline Phosphatase C-Reactive Protein Serum Total Protein Total Protein Albumin Prealbumin Akccp-2-Nwfptajxa Gtqvr-0-Qmmmvezob Gamma Globulins PEP Interpretation Triglycerides Urine pH Urine Creatinine Urine Total Protein Vancomycin Trough Digoxin Crossmatch 11/11/19 11/11/19 11/12/19 17:29 22:20 06:00 WBC RBC 2.77 L Hgb 7.8 L Hct 23.4 L MCH MCHC RDW 16.6 H Plt Count Lymph % (Auto) 11.9 L [place] % (Auto) 8.9 H Lymph # Kane # 0.9 H Seg Neutrophils % 78.2 H Seg Neuts % (Manual) Lymphocytes % (Manual) Seg Neutrophils # 8.2 H Seg Neutrophils # Man Lymphocytes # (Manual) Monocytes # (Manual) POC ABG pH ABG pH POC ABG pCO2 POC ABG pO2 ABG pO2 ABG HCO3 ABG Base Excess ABG Hemoglobin Oxyhemoglobin Sodium Potassium Chloride Carbon Dioxide BUN Creatinine Glucose POC Glucose 120 H 109 H Calcium Phosphorus Magnesium Direct Bilirubin AST Alkaline Phosphatase C-Reactive Protein Serum Total Protein Total Protein Albumin Prealbumin Xszqr-6-Rioykgtxq Vvarw-4-Pxnaiheea Gamma Globulins PEP Interpretation Triglycerides Urine pH Urine Creatinine Urine Total Protein Vancomycin Trough Digoxin Crossmatch 11/12/19 11/12/19 11/12/19 07:52 11:58 23:44 WBC RBC Hgb Hct MCH MCHC RDW Plt Count Lymph % (Auto) [place] % (Auto) Lymph # [place] # Seg Neutrophils % Seg Neuts % (Manual) Lymphocytes % (Manual) Seg Neutrophils # Seg Neutrophils # Man Lymphocytes # (Manual) Monocytes # (Manual) POC ABG pH ABG pH POC ABG pCO2 POC ABG pO2 ABG pO2 ABG HCO3 ABG Base Excess ABG Hemoglobin Oxyhemoglobin Sodium Potassium Chloride Carbon Dioxide BUN Creatinine Glucose POC Glucose 120 H 140 H 116 H Calcium Phosphorus Magnesium Direct Bilirubin AST Alkaline Phosphatase C-Reactive Protein Serum Total Protein Total Protein Albumin Prealbumin Xkrsz-8-Qcpmgymlt Jkvoa-5-Dvyobnkqz Gamma Globulins PEP Interpretation Triglycerides Urine pH Urine Creatinine Urine Total Protein Vancomycin Trough Digoxin Crossmatch 11/13/19 11/13/19 11/13/19 04:33 04:33 13:43 WBC 11.2 H RBC 2.90 L Hgb 8.1 L Hct 24.5 L MCH MCHC RDW 16.5 H Plt Count Lymph % (Auto) 10.1 L [place] % (Auto) 7.6 H Lymph # 1.1 L [place] # 0.9 H Seg Neutrophils % 81.1 H Seg Neuts % (Manual) Lymphocytes % (Manual) Seg Neutrophils # 9.1 H Seg Neutrophils # Man Lymphocytes # (Manual) Monocytes # (Manual) POC ABG pH ABG pH POC ABG pCO2 POC ABG pO2 ABG pO2 ABG HCO3 ABG Base Excess ABG Hemoglobin Oxyhemoglobin Sodium 135 L Potassium Chloride 91.9 L Carbon Dioxide BUN Creatinine 0.6 L Glucose POC Glucose 122 H Calcium Phosphorus Magnesium Direct Bilirubin AST Alkaline Phosphatase C-Reactive Protein Serum Total Protein Total Protein Albumin Prealbumin Aybki-5-Lavokjkqg Epksl-7-Ymtdtqqtg Gamma Globulins PEP Interpretation Triglycerides Urine pH Urine Creatinine Urine Total Protein Vancomycin Trough Digoxin Crossmatch 11/13/19 11/14/19 11/15/19 17:57 12:35 07:10 WBC 14.8 H RBC 2.89 L Hgb 7.8 L Hct 24.2 L MCH 27 L MCHC RDW 16.9 H Plt Count Lymph % (Auto) [place] % (Auto) Lymph # [place] # Seg Neutrophils % Seg Neuts % (Manual) Lymphocytes % (Manual) Seg Neutrophils # Seg Neutrophils # Man Lymphocytes # (Manual) Monocytes # (Manual) POC ABG pH ABG pH POC ABG pCO2 POC ABG pO2 ABG pO2 ABG HCO3 ABG Base Excess ABG Hemoglobin Oxyhemoglobin Sodium Potassium Chloride Carbon Dioxide BUN Creatinine Glucose POC Glucose 127 H 148 H Calcium Phosphorus Magnesium Direct Bilirubin AST Alkaline Phosphatase C-Reactive Protein Serum Total Protein Total Protein Albumin Prealbumin Xilcz-1-Dskurvihu Swczg-0-Rtdzijekd Gamma Globulins PEP Interpretation Triglycerides Urine pH Urine Creatinine Urine Total Protein Vancomycin Trough Digoxin Crossmatch 11/15/19 11/15/19 11/16/19 07:10 20:16 10:26 WBC 14.4 H RBC 2.79 L Hgb 7.6 L Hct 23.5 L MCH 27 L MCHC RDW 17.0 H Plt Count Lymph % (Auto) [place] % (Auto) Lymph # [place] # Seg Neutrophils % Seg Neuts % (Manual) Lymphocytes % (Manual) Seg Neutrophils # Seg Neutrophils # Man Lymphocytes # (Manual) Monocytes # (Manual) POC ABG pH ABG pH POC ABG pCO2 POC ABG pO2 ABG pO2 ABG HCO3 ABG Base Excess ABG Hemoglobin Oxyhemoglobin Sodium 133 L 136 L Potassium 3.5 L Chloride 93.7 L 97.4 L Carbon Dioxide BUN Creatinine 0.6 L 0.6 L Glucose 130 H POC Glucose Calcium Phosphorus Magnesium Direct Bilirubin AST Alkaline Phosphatase C-Reactive Protein Serum Total Protein Total Protein Albumin Prealbumin Cfowx-4-Orwapxxki Hvrtc-8-Ivsoyuich Gamma Globulins PEP Interpretation Triglycerides Urine pH Urine Creatinine Urine Total Protein Vancomycin Trough Digoxin Crossmatch
--- NOTE | 2019-11-16 14:55 | Progress Note ---
Assessment and Plan Assessment and plan: Sepsis, improved. Completed Abx per ID. Enterococcus on cultures. . Dehiscence of closure of fascia s/p ex lap with closure of abdominal wall and wound vac placement (10/05) - POD#37; s/p Re-exploration, washout, transection of colon, Abthera placement - 10/13 - POD#29; s/p abd washout, partial omentectomy, partial colectomy with colostomy - 10/16 POD#26. s/p abd washout, feeding tube placement, AbThera placement - 10/19 - POD#23; Abdominal washout and closure - 10/22 - POD#20 Acute Respiratory failure with hypoxia -Extubated 10/25/19 -Re-intubated 10/30 -Patient self extubated morning of 11/04, now on Oxygen by NC -Multifactorial secondary to pneumonia, pneumothorax and COPD Sepsis Completed Merrem, Micafungin ID Physician following Left pneumothorax s/p chest tube placed 10/30 Resolved. Left lower lobe pneumonia -CTA chest showed left lower lobe consolidation with pleural effusion COPD -Stable -cont neb tx GUILLERMO on CKD -due to ATN due to sepsis -Resolved. -No hydronephrosis on CT Severe Metabolic acidosis -Improved Acute Toxic Metabolic Encephalopathy/Delirium Tremens. Resolved. -Continue CIWA protocol due to hx of ETOH abuse, 6packs a day -Head CT scan negative for acute findings Acute blood loss anemia -H/H stable -Continue to monitor H&H and transfuse for hb<7 SVT, Atrial fib/flutter with RVR -treated with adenosine x1 -off amiodarone and cardizem drip. On oral amiodarone -HR currently controlled -Cardiology following Hx of Hypertension -Stable Hyperlipidemia -stable Atypical chest pain -probably secondary to pneumonitis -troponin levels neg Hx of NH/CAD -s/p PCI of the circumflex and second vessel POBA of the distal LAD occlusion. Left ventricle fraction of 45-50%. Morbid obesity with BMI of 43.4 -Lifestyle modification recommended Moderate Protein calorie malnutrition -Nutrition following Tobacco abuse -Cessation recommended Morbid obesity with BMI of 43.4 -Lifestyle modification recommended DVT and GI ppx: Lovenox/PPI He feels better. Plan is to discharge to acute rehab when accepted History Interval history: feels better, Tolerating diet Hospitalist Physical - Physical exam Narrative exam: Gen: Not in acute distress, On Oxygen by NC HEENT: Normocephalic, atraumatic Neck: supple, no JVD Heart: S1 and S2 reg, no murmurs, rubs or gallop Lungs: Chest tube on left, Abd: soft, NT, ostomy, wound vac, left drain Ext: No edema, no clubbing no cyanosis Neuro: Awake,alert , oriented X 3, moves all ext - Constitutional Vitals: Temp Pulse Resp BP Pulse Ox 98.2 F 84 18 118/56 94 11/16/19 12:03 11/16/19 14:54 11/16/19 14:54 11/16/19 14:00 11/16/19 12:03 General appearance: Present: no acute distress, obese Results - Labs CBC & Chem 7: 11/17/19 07:22 11/17/19 07:22 Labs: Laboratory Last Values WBC 14.4 K/mm3 (4.5-11.0) H 11/15/19 20:16 RBC 2.79 M/mm3 (3.65-5.03) L 11/15/19 20:16 Hgb 7.6 gm/dl (11.8-15.2) L 11/15/19 20:16 Hct 23.5 % (35.5-45.6) L 11/15/19 20:16 MCV 84 fl (84-94) 11/15/19 20:16 MCH 27 pg (28-32) L 11/15/19 20:16 MCHC 33 % (32-34) 11/15/19 20:16 RDW 17.0 % (13.2-15.2) H 11/15/19 20:16 Plt Count 309 K/mm3 (140-440) 11/15/19 20:16 Lymph % (Auto) 10.1 % (13.4-35.0) L 11/13/19 04:33 [place] % (Auto) 7.6 % (0.0-7.3) H 11/13/19 04:33 Eos % (Auto) 0.7 % (0.0-4.3) 11/13/19 04:33 Baso % (Auto) 0.5 % (0.0-1.8) 11/13/19 04:33 Lymph # 1.1 K/mm3 (1.2-5.4) L 11/13/19 04:33 [place] # 0.9 K/mm3 (0.0-0.8) H 11/13/19 04:33 Eos # 0.1 K/mm3 (0.0-0.4) 11/13/19 04:33 Baso # 0.1 K/mm3 (0.0-0.1) 11/13/19 04:33 Add Manual Diff Complete 10/16/19 09:20 Total Counted 100 10/16/19 09:20 Seg Neutrophils % 81.1 % (40.0-70.0) H 11/13/19 04:33 Seg Neuts % (Manual) 79.0 % (40.0-70.0) H 10/16/19 09:20 Band Neutrophils % 12.0 % 10/16/19 09:20 Lymphocytes % (Manual) 4.0 % (13.4-35.0) L 10/16/19 09:20 Reactive Lymphs % (Man) 0 % 10/16/19 09:20 Monocytes % (Manual) 2.0 % (0.0-7.3) 10/16/19 09:20 Eosinophils % (Manual) 0 % (0.0-4.3) 10/16/19 09:20 Basophils % (Manual) 0 % (0.0-1.8) 10/16/19 09:20 Metamyelocytes % 2.0 % 10/16/19 09:20 Myelocytes % 1.0 % 10/16/19 09:20 Promyelocytes % 0 % 10/16/19 09:20 Blast Cells % 0 % 10/16/19 09:20 Nucleated RBC % Not Reportable 10/16/19 09:20 Seg Neutrophils # 9.1 K/mm3 (1.8-7.7) H 11/13/19 04:33 Seg Neutrophils # Man 11.5 K/mm3 (1.8-7.7) H 10/16/19 09:20 Band Neutrophils # 1.8 K/mm3 10/16/19 09:20 Lymphocytes # (Manual) 0.6 K/mm3 (1.2-5.4) L 10/16/19 09:20 Abs React Lymphs (Man) 0.0 K/mm3 10/16/19 09:20 Monocytes # (Manual) 0.3 K/mm3 (0.0-0.8) 10/16/19 09:20 Eosinophils # (Manual) 0.0 K/mm3 (0.0-0.4) 10/16/19 09:20 Basophils # (Manual) 0.0 K/mm3 (0.0-0.1) 10/16/19 09:20 Metamyelocytes # 0.3 K/mm3 10/16/19 09:20 Myelocytes # 0.1 K/mm3 10/16/19 09:20 Promyelocytes # 0.0 K/mm3 10/16/19 09:20 Blast Cells # 0.0 K/mm3 10/16/19 09:20 WBC Morphology Not Reportable 10/16/19 09:20 Hypersegmented Neuts Not Reportable 10/16/19 09:20 Hyposegmented Neuts Not Reportable 10/16/19 09:20 Hypogranular Neuts Not Reportable 10/16/19 09:20 Smudge Cells Not Reportable 10/16/19 09:20 Toxic Granulation Not Reportable 10/16/19 09:20 Toxic Vacuolation Not Reportable 10/16/19 09:20 Dohle Bodies Not Reportable 10/16/19 09:20 Pelger-Huet Anomaly Not Reportable 10/16/19 09:20 Andres Rods Not Reportable 10/16/19 09:20 Platelet Estimate Consistent w auto 10/16/19 09:20 Clumped Platelets Not Reportable 10/16/19 09:20 Plt Clumps, EDTA Not Reportable 10/16/19 09:20 Large Platelets Not Reportable 10/16/19 09:20 Giant Platelets Not Reportable 10/16/19 09:20 Platelet Satelliting Not Reportable 10/16/19 09:20 Plt Morphology Comment Not Reportable 10/16/19 09:20 RBC Morphology Not Reportable 10/16/19 09:20 Dimorphic RBCs Not Reportable 10/16/19 09:20 Polychromasia Few 10/16/19 09:20 Hypochromasia Few 10/16/19 09:20 Poikilocytosis Not Reportable 10/16/19 09:20 Anisocytosis Not Reportable 10/16/19 09:20 Microcytosis Not Reportable 10/16/19 09:20 Macrocytosis Not Reportable 10/16/19 09:20 Spherocytes Not Reportable 10/16/19 09:20 Pappenheimer Bodies Not Reportable 10/16/19 09:20 Sickle Cells Not Reportable 10/16/19 09:20 Target Cells Few 10/16/19 09:20 Tear Drop Cells Not Reportable 10/16/19 09:20 Ovalocytes Not Reportable 10/16/19 09:20 Helmet Cells Not Reportable 10/16/19 09:20 Varghese-Quitman Bodies Not Reportable 10/16/19 09:20 [place] Rings Not Reportable 10/16/19 09:20 Bishnu Cells Not Reportable 10/16/19 09:20 Bite Cells Not Reportable 10/16/19 09:20 Crenated Cell Not Reportable 10/16/19 09:20 Elliptocytes Not Reportable 10/16/19 09:20 Acanthocytes (Spur) Not Reportable 10/16/19 09:20 Rouleaux Not Reportable 10/16/19 09:20 Hemoglobin C Crystals Not Reportable 10/16/19 09:20 Schistocytes Not Reportable 10/16/19 09:20 Malaria parasites Not Reportable 10/16/19 09:20 Toni Bodies Not Reportable 10/16/19 09:20 Hem Pathologist Commnt No 10/16/19 09:20 POC ABG pH 7.422 (7.35-7.45) 11/03/19 04:28 ABG pH 7.390 pH Units (7.350-7.450) 10/23/19 04:47 POC ABG pCO2 45.4 (35-45) H 11/03/19 04:28 ABG pCO2 48.4 mm Hg 10/23/19 04:47 POC ABG pO2 83 (80-105) 11/03/19 04:28 ABG pO2 68.9 mm Hg (80.0-90.0) L 10/23/19 04:47 POC ABG HCO3 29.6 (22-26 mml/L) 11/03/19 04:28 ABG HCO3 28.7 mmol/L (20.0-26.0) H 10/23/19 04:47 POC ABG Total CO2 31 (23-27mmol/L) 11/03/19 04:28 POC ABG O2 Sat 96 11/03/19 04:28 ABG O2 Saturation 96.6 % (95.0-99.0) 10/23/19 04:47 ABG O2 Content 8.8 (0.0-44) 10/23/19 04:47 POC ABG Base Excess 5 ((-2) - (+3)mmol/L) 11/03/19 04:28 ABG Base Excess 3.4 mmol/L (-2.0-3.0) H 10/23/19 04:47 ABG Hemoglobin 6.6 gm/dl (14.0-18.0) L 10/23/19 04:47 ABG Carboxyhemoglobin 2.1 % (0.0-5.0) 10/23/19 04:47 ABG Methemoglobin 0.5 % (0.0-1.5) 10/23/19 04:47 Oxyhemoglobin 94.1 % (95.0-99.0) L 10/23/19 04:47 FiO2 40 % 11/03/19 04:28 Sodium 136 mmol/L (137-145) L 11/16/19 10:26 Potassium 3.5 mmol/L (3.6-5.0) L 11/16/19 10:26 Chloride 97.4 mmol/L (98-107) L 11/16/19 10:26 Carbon Dioxide 23 mmol/L (22-30) 11/16/19 10:26 Anion Gap 19 mmol/L 11/16/19 10:26 BUN 10 mg/dL (9-20) 11/16/19 10:26 Creatinine 0.6 mg/dL (0.8-1.5) L 11/16/19 10:26 Estimated GFR > 60 ml/min 11/16/19 10:26 BUN/Creatinine Ratio 17 % 11/16/19 10:26 Glucose 130 mg/dL (75-100) H 11/16/19 10:26 POC Glucose 117 (70-105) H 11/16/19 13:01 Hemoglobin A1c 5.7 % (4-6) 10/06/19 05:36 Lactic Acid 1.10 mmol/L (0.7-2.0) 10/13/19 04:20 Calcium 8.9 mg/dL (8.4-10.2) 11/16/19 10:26 Ionized Calcium 5.2 mg/dL (4.8-5.6) 10/18/19 07:41 Phosphorus 2.70 mg/dL (2.5-4.5) 11/02/19 12:43 Magnesium 2.40 mg/dL (1.7-2.3) H 11/02/19 12:43 Total Bilirubin 1.10 mg/dL (0.1-1.2) 10/26/19 06:15 Direct Bilirubin 0.7 mg/dL (0-0.2) H 10/23/19 10:44 Indirect Bilirubin 0.1 mg/dL 10/23/19 10:44 AST 23 units/L (5-40) 10/26/19 06:15 ALT 13 units/L (7-56) 10/26/19 06:15 Alkaline Phosphatase 148 units/L (35-129) H 10/26/19 06:15 Ammonia 49.0 umol/L (25-60) 10/13/19 04:20 Troponin T < 0.010 ng/mL (0.00-0.029) 10/09/19 17:23 C-Reactive Protein 30.60 mg/dL (0.00-1.30) H 10/15/19 04:32 Serum Total Protein 5.2 g/dL (6.1-8.1) L 10/11/19 09:00 Total Protein 5.9 g/dL (6.3-8.2) L 10/26/19 06:15 Albumin 2.4 g/dL (3.9-5) L 10/26/19 06:15 Albumin/Globulin Ratio 0.7 % 10/26/19 06:15 Prealbumin 0.030 g/L (0.200-0.400) L 10/15/19 04:32 [id number] See scanned result 10/11/19 Unknown [id number]-[id number] See scanned result 10/11/19 Unknown Beta Globulins See scanned result 10/11/19 Unknown Gamma Globulins See scanned result 10/11/19 Unknown Abnorm Protein Band 1 see below 10/11/19 09:00 PEP Interpretation See scanned result 10/11/19 Unknown Triglycerides 185 mg/dL (2-149) H 10/26/19 06:15 Urine Color Yellow (Yellow) 10/26/19 Unknown Urine Turbidity Clear (Clear) 10/26/19 Unknown Urine pH 9.0 (5.0-7.0) H 10/26/19 Unknown Ur Specific [place] 1.011 (1.003-1.030) 10/26/19 Unknown Urine Protein 30 mg/dl mg/dL (Negative) 10/26/19 Unknown Urine Glucose (UA) Neg mg/dL (Negative) 10/26/19 Unknown Urine Ketones Neg mg/dL (Negative) 10/26/19 Unknown Urine Blood Neg (Negative) 10/26/19 Unknown Urine Nitrite Neg (Negative) 10/26/19 Unknown Urine Bilirubin Neg (Negative) 10/26/19 Unknown Urine Urobilinogen < 2.0 mg/dL (<2.0) 10/26/19 Unknown Ur Leukocyte Esterase Neg (Negative) 10/26/19 Unknown Urine WBC (Auto) 1.0 /HPF (0.0-6.0) 10/26/19 Unknown Urine RBC (Auto) 1.0 /HPF (0.0-6.0) 10/26/19 Unknown Urine Bacteria (Auto) 1+ /HPF (Negative) 10/11/19 06:23 Urine Mucus Few /HPF 10/26/19 Unknown Urine Eosinophils None seen (None Seen) 10/11/19 06:23 Ur Random Creatinine See scanned result 10/11/19 Unknown U Random Total Protein See scanned result 10/11/19 Unknown Urine Creatinine 116.8 mg/dL (0.1-20.0) H 10/11/19 06:23 Urine Creatinine 118.2 mg/dL (0.1-20.0) H 10/11/19 06:23 Protein/Creatinin Ratio See scanned result 10/11/19 Unknown Urine Sodium 14 mmol/L 10/11/19 06:23 Urine Total Protein 104 mg/dL (5-11.8) H 10/11/19 06:23 Urine Total Protein 105 mg/dL (5-11.8) H 10/11/19 06:23 U Abnormal Prot Band 1 See scanned result 10/11/19 Unknown U Abnormal Prot Band 2 See scanned result 10/11/19 Unknown U Abnormal Prot Band 3 See scanned result 10/11/19 Unknown Vancomycin Trough 5.7 ug/mL (5.0-20.0) 11/05/19 09:00 Random Vancomycin 9.6 ug/mL (0-40.0) 11/03/19 03:42 Digoxin 0.7 ng/mL (0.9-2.0) L 10/19/19 04:21 Blood Type A POSITIVE 10/23/19 11:50 Antibody Screen Negative 10/23/19 11:50 Crossmatch See Detail 10/23/19 11:50 Active Medications - Current Medications Current Medications: Generic Name Dose Route Start Last Admin Trade Name Freq PRN Reason Stop Dose Admin Acetaminophen 650 mg 10/25/19 13:00 11/03/19 16:03 Tylenol FEEDTUBE 650 mg Q4H PRN Administration Fever >100.5 Acetaminophen/Hydrocodone Bitart 7.5 mg 11/07/19 16:57 11/16/19 04:16 Hydrocodone/Apap 7.5-325 FEEDTUBE 7.5 mg Q4H PRN Administration Pain, Moderate (4-6) Albuterol/Ipratropium 1 ampul 10/06/19 02:00 11/16/19 14:52 Duoneb *Not For Prn Use* IH 1 ampul Q6HRT VERÓNICA Administration Amiodarone HCl 200 mg 10/23/19 13:00 11/16/19 11:16 Cordarone PO 200 mg QDAY VERÓNICA Administration Lipase/Protease/Amylase 1 each 10/20/19 10:37 Pancreazanamika Moreno 10,500 Unit FEEDTUBE PRN PRN For Clogged Feeding Tube Arformoterol Tartrate 15 mcg 10/06/19 08:30 11/16/19 08:35 Brovana Nebu IH 15 mcg Q12HRT VERÓNICA Administration Budesonide 0.5 mg 10/07/19 12:20 11/16/19 08:34 Pulmicort IH 0.5 mg Q12HRT VERÓNICA Administration Citalopram Hydrobromide 20 mg 10/27/19 12:00 11/16/19 11:18 Celexa PO 20 mg DAILY VERÓNICA Administration Enoxaparin Sodium 40 mg 11/05/19 22:00 11/15/19 21:21 Enoxaparin SUB-Q 40 mg QDAY@2200 VERÓNICA Administration Haloperidol Lactate 5 mg 10/25/19 18:22 11/12/19 03:33 Haldol IV 5 mg Q6H PRN Administration Agitation Hydralazine HCl 10 mg 10/28/19 14:09 12/20/19 15:34 Apresoline IV 10 mg Q4HR PRN Administration Hypertension Hydromorphone HCl 2 mg 10/25/19 12:35 11/15/19 12:34 Dilaudid IV 2 mg Q4H PRN Administration Pain , Severe (7-10) Insulin Human Lispro 0 unit 10/14/19 12:00 11/16/19 14:26 Humalog SUB-Q Not Given Q6HR [facility] Protocol Lisinopril 20 mg 10/30/19 10:00 11/16/19 11:18 Zestril PO Not Given QDAY VERÓNICA Metoprolol Tartrate 2.5 mg 10/15/19 15:34 11/01/19 18:00 Metoprolol IV 2.5 mg Q4HR PRN Administration HR >130 Metoprolol Tartrate 50 mg 10/25/19 14:00 11/16/19 14:00 Metoprolol PO 50 mg Q8HR VERÓNICA Administration Multi-Ingred Cream/Lotion/Oil/Oint 1 applic 10/14/19 02:19 Artificial Tears Ophth Oint OU Q4HR PRN Dry Eye(s) Pantoprazole Sodium 40 mg 10/15/19 10:00 11/16/19 11:18 Protonix IV 40 mg QDAY VERÓNICA Administration Simple Syrup 15 ml 10/20/19 10:37 Simple Syrup FEEDTUBE PRN PRN Hypoglycemia Simple Syrup 30 ml 10/20/19 10:37 Simple Syrup FEEDTUBE PRN PRN Hypoglycemia Sodium Bicarbonate 325 mg 10/20/19 10:37 11/14/19 05:59 Sodium Bicarbonate FEEDTUBE 325 mg PRN PRN Administration For Clogged Feeding Tube Sodium Chloride 10 ml 11/07/19 19:32 11/15/19 10:37 Sodium Chloride Flush Syringe 10 Ml IV 10 ml PRN PRN Administration LINE FLUSH Zolpidem Tartrate 5 mg 11/10/19 21:00 11/11/19 03:30 Ambien FEEDTUBE 5 mg QHS PRN Administration Sleep Nutrition/Malnutrition Assess - Dietary Evaluation Nutrition/Malnutrition Findings: Nutrition Notes Start: 10/08/19 11:36 Freq: Status: Active Protocol: Document 11/15/19 11:31 LP (Rec: 11/15/19 11:42 LP [id number]) Nutrition Notes Initial or Follow up Reassessment Current Diagnosis Acute Kidney Injury,COPD, Hypertension Other Pertinent Diagnosis intra-abdominal infection, disruption of bowel anastomosis, LE edema Current Diet Regular Labs/Tests Reviewed Pertinent Medications Reviewed Height 6 ft Weight 145 kg [place] Body Weight (kg) 80.90 BMI 43.3 Weight Status Morbidly Obese Subjective/Other Information Ostomy is functioning. TF on hold due to clogged j tube. Pt noted with eating 75-100% of meals. Pt sleeping at time of visit. Percent of energy/protein needs met: 86%/50% Burn Absent Trauma Absent GI Symptoms None Current % PO Good (75-100%) Minimum of two criteria No Fluid Accumulation Mild (non-severe) #2 Nutrition Diagnosis Inadequate oral intake As Evidenced by Signs and Symptoms Diet advanced and noted consuming 75-100% of meals Diagnosis Progress(for reassessment Improved documentation) #1 Nutrition Diagnosis Increased nutrient needs ( specify in comment below) Diagnosis Progress(for reassessment Continues documentation) Is patient on ventilator? No Is Patient Ambulatory and/or Out of Bed No REE-([facility]-confined to bed) 2785.236 Kcal/Kg value to use for calculation 14 Approximate Energy Requirements Using 2030 kcal/Kg Calculation Used for Recommendations Kcal/kg Additional Notes Protein: 136-169g (1.2-1.5g/kg ) AdjBW 113kg Fluid 1 ml/kcal or per MD Nutrition Intervention Change Diet Order: Continue regular Nutrition Support: D/C for now Add Supplement/Snack (indicate name/kcal Ensure High Protein BID /protein ) Provides kCal: 320 Provides Protein (gm) 32 Goal #1 Meet at least 80% of energy and protein needs via PO intakes Anticipated Discharge Needs: Regular diet Follow-Up By: 11/19/19 Additional Comments Follow for intakes and ONS tolerance
--- NOTE | 2019-11-16 15:42 | Event Note ---
Date: 11/16/19 Received a call from RN this am that patient's wound vac and red rubber catheter midline drain were dislodged during physical therapy session. Patient examined with ic designer custom Berny. Wound vac was already removed and red rubber catheter already repositioned by Berny ANDERSON. Drain was connected to suction and working well, without leakage into the wound. The wound bed was clean with red granulation tissue, almost flush with skin. New black foam along with wound vac dressing applied per Berny ANDERSON. Patient remained stable throughout. He is tolerating an oral diet. Patient to be medicated with dilaudid for pain. I will order a 250cc NS bolus if needed. Patient's and RN present during exam and wound care.
[2019-11-16] MEDS ORDERED: SODIUM CHLORIDE 0.9% 250ML 250 ML IV ONE (16:33)
[2019-11-16] MEDS: ENOXAPARIN 40 MG/0.4 ML INJ SUB-Q SCH (21:19)
[2019-11-17] MEDS: INSULIN LISPRO 100 UNIT/ML SUB-Q SCH ×4 (00:10→17:55)
[2019-11-17] MEDS: IPRATROPIUM/ALBUTEROL SULFATE 3 ML AMPUL.NEB IH SCH ×4 (03:20→21:08)
[2019-11-17] MEDS: METOPROLOL TARTRATE 50 MG TAB PO SCH ×3 (07:58→21:00)
[2019-11-17 08:32] LABS: Hematocrit 22.8 % (35.5-45.6); Hemoglobin 7.4 gm/dl (11.8-15.2); Mean Corpuscular HGB Conc 33 % (32-34); Mean Corpuscular Volume 84 fl (84-94); Platelet Count 326 K/mm3 (140-440); Red Blood Count 2.71 M/mm3 (3.65-5.03); Red Cell Distribution Width 17.2 % (13.2-15.2)
[2019-11-17] MEDS: ARFORMOTEROL 15 MCG/2 ML NEBU IH SCH ×2 (08:50→21:08)
[2019-11-17] MEDS: BUDESONIDE 0.5 MG/2 ML NEBU IH SCH ×2 (08:50→21:08)
[2019-11-17 08:52] LABS: BUN/Creatinine Ratio 14; Blood Urea Nitrogen 7 mg/dL (9-20); Calcium 8.9 mg/dL (8.4-10.2); Hemolysis Index 3
[2019-11-17] MEDS: LISINOPRIL 20 MG TAB PO SCH (09:55)
[2019-11-17] MEDS: HYDROmorphone 2 MG/1 ML INJ IV PRN ×2 (09:59→17:34)
[2019-11-17] MEDS: PANTOPRAZOLE 40 MG INJ IV SCH (09:59)
[2019-11-17] MEDS: CITALOPRAM 20 MG TAB PO SCH (10:00)
[2019-11-17] MEDS: AMIODARONE 200 MG TAB PO SCH (10:04)
--- NOTE | 2019-11-17 11:16 | Progress Note ---
Assessment and Plan Assessment and plan: Sepsis, improved. Completed Abx per ID. Enterococcus on cultures. . Dehiscence of closure of fascia s/p ex lap with closure of abdominal wall and wound vac placement (10/05) - POD#37; s/p Re-exploration, washout, transection of colon, Abthera placement - 10/13 - POD#29; s/p abd washout, partial omentectomy, partial colectomy with colostomy - 10/16 POD#26. s/p abd washout, feeding tube placement, AbThera placement - 10/19 - POD#23; Abdominal washout and closure - 10/22 - POD#20 Acute Respiratory failure with hypoxia -Extubated 10/25/19 -Re-intubated 10/30 -Patient self extubated morning of 11/04, now on Oxygen by MD -Multifactorial secondary to pneumonia, pneumothorax and COPD Sepsis Completed Merrem, Micafungin ID Physician following Left pneumothorax s/p chest tube placed 10/30 Resolved. Left lower lobe pneumonia -CTA chest showed left lower lobe consolidation with pleural effusion COPD -Stable -cont neb tx GUILLERMO on CKD -due to ATN due to sepsis -Resolved. -No hydronephrosis on CT Severe Metabolic acidosis -Improved Acute Toxic Metabolic Encephalopathy/Delirium Tremens. Resolved. -Continue CIWA protocol due to hx of ETOH abuse, 6packs a day -Head CT scan negative for acute findings Acute blood loss anemia -H/H stable -Continue to monitor H&H and transfuse for hb<7 SVT, Atrial fib/flutter with RVR -treated with adenosine x1 -off amiodarone and cardizem drip. On oral amiodarone -HR currently controlled -Cardiology following Hx of Hypertension -Stable Hyperlipidemia -stable Atypical chest pain -probably secondary to pneumonitis -troponin levels neg Hx of DE/CAD -s/p PCI of the circumflex and second vessel POBA of the distal LAD occlusion. Left ventricle fraction of 45-50%. Morbid obesity with BMI of 43.4 -Lifestyle modification recommended Moderate Protein calorie malnutrition -Nutrition following Tobacco abuse -Cessation recommended Morbid obesity with BMI of 43.4 -Lifestyle modification recommended DVT and GI ppx: Lovenox/PPI He feels better. Plan is to discharge to acute rehab when accepted History Interval history: feels better, Still has gen weakness Tolerating diet Hospitalist Physical - Constitutional Vitals: Temp Pulse Resp BP Pulse Ox 97.9 F 85 18 106/53 95 11/17/19 08:55 11/17/19 09:05 11/17/19 08:55 11/17/19 08:55 11/17/19 08:55 General appearance: Present: no acute distress, obese Results - Labs CBC & Chem 7: 11/17/19 07:22 11/17/19 07:22 Labs: Laboratory Last Values WBC 14.0 K/mm3 (4.5-11.0) H 11/17/19 07:22 RBC 2.71 M/mm3 (3.65-5.03) L 11/17/19 07:22 Hgb 7.4 gm/dl (11.8-15.2) L 11/17/19 07:22 Hct 22.8 % (35.5-45.6) L 11/17/19 07:22 MCV 84 fl (84-94) 11/17/19 07:22 MCH 27 pg (28-32) L 11/17/19 07:22 MCHC 33 % (32-34) 11/17/19 07:22 RDW 17.2 % (13.2-15.2) H 11/17/19 07:22 Plt Count 326 K/mm3 (140-440) 11/17/19 07:22 Lymph % (Auto) 10.1 % (13.4-35.0) L 11/13/19 04:33 [place] % (Auto) 7.6 % (0.0-7.3) H 11/13/19 04:33 Eos % (Auto) 0.7 % (0.0-4.3) 11/13/19 04:33 Baso % (Auto) 0.5 % (0.0-1.8) 11/13/19 04:33 Lymph # 1.1 K/mm3 (1.2-5.4) L 11/13/19 04:33 Rock # 0.9 K/mm3 (0.0-0.8) H 11/13/19 04:33 Eos # 0.1 K/mm3 (0.0-0.4) 11/13/19 04:33 Baso # 0.1 K/mm3 (0.0-0.1) 11/13/19 04:33 Add Manual Diff Complete 10/16/19 09:20 Total Counted 100 10/16/19 09:20 Seg Neutrophils % 81.1 % (40.0-70.0) H 11/13/19 04:33 Seg Neuts % (Manual) 79.0 % (40.0-70.0) H 10/16/19 09:20 Band Neutrophils % 12.0 % 10/16/19 09:20 Lymphocytes % (Manual) 4.0 % (13.4-35.0) L 10/16/19 09:20 Reactive Lymphs % (Man) 0 % 10/16/19 09:20 Monocytes % (Manual) 2.0 % (0.0-7.3) 10/16/19 09:20 Eosinophils % (Manual) 0 % (0.0-4.3) 10/16/19 09:20 Basophils % (Manual) 0 % (0.0-1.8) 10/16/19 09:20 Metamyelocytes % 2.0 % 10/16/19 09:20 Myelocytes % 1.0 % 10/16/19 09:20 Promyelocytes % 0 % 10/16/19 09:20 Blast Cells % 0 % 10/16/19 09:20 Nucleated RBC % Not Reportable 10/16/19 09:20 Seg Neutrophils # 9.1 K/mm3 (1.8-7.7) H 11/13/19 04:33 Seg Neutrophils # Man 11.5 K/mm3 (1.8-7.7) H 10/16/19 09:20 Band Neutrophils # 1.8 K/mm3 10/16/19 09:20 Lymphocytes # (Manual) 0.6 K/mm3 (1.2-5.4) L 10/16/19 09:20 Abs React Lymphs (Man) 0.0 K/mm3 10/16/19 09:20 Monocytes # (Manual) 0.3 K/mm3 (0.0-0.8) 10/16/19 09:20 Eosinophils # (Manual) 0.0 K/mm3 (0.0-0.4) 10/16/19 09:20 Basophils # (Manual) 0.0 K/mm3 (0.0-0.1) 10/16/19 09:20 Metamyelocytes # 0.3 K/mm3 10/16/19 09:20 Myelocytes # 0.1 K/mm3 10/16/19 09:20 Promyelocytes # 0.0 K/mm3 10/16/19 09:20 Blast Cells # 0.0 K/mm3 10/16/19 09:20 WBC Morphology Not Reportable 10/16/19 09:20 Hypersegmented Neuts Not Reportable 10/16/19 09:20 Hyposegmented Neuts Not Reportable 10/16/19 09:20 Hypogranular Neuts Not Reportable 10/16/19 09:20 Smudge Cells Not Reportable 10/16/19 09:20 Toxic Granulation Not Reportable 10/16/19 09:20 Toxic Vacuolation Not Reportable 10/16/19 09:20 Dohle Bodies Not Reportable 10/16/19 09:20 Pelger-Huet Anomaly Not Reportable 10/16/19 09:20 Andres Rods Not Reportable 10/16/19 09:20 Platelet Estimate Consistent w auto 10/16/19 09:20 Clumped Platelets Not Reportable 10/16/19 09:20 Plt Clumps, EDTA Not Reportable 10/16/19 09:20 Large Platelets Not Reportable 10/16/19 09:20 Giant Platelets Not Reportable 10/16/19 09:20 Platelet Satelliting Not Reportable 10/16/19 09:20 Plt Morphology Comment Not Reportable 10/16/19 09:20 RBC Morphology Not Reportable 10/16/19 09:20 Dimorphic RBCs Not Reportable 10/16/19 09:20 Polychromasia Few 10/16/19 09:20 Hypochromasia Few 10/16/19 09:20 Poikilocytosis Not Reportable 10/16/19 09:20 Anisocytosis Not Reportable 10/16/19 09:20 Microcytosis Not Reportable 10/16/19 09:20 Macrocytosis Not Reportable 10/16/19 09:20 Spherocytes Not Reportable 10/16/19 09:20 Pappenheimer Bodies Not Reportable 10/16/19 09:20 Sickle Cells Not Reportable 10/16/19 09:20 Target Cells Few 10/16/19 09:20 Tear Drop Cells Not Reportable 10/16/19 09:20 Ovalocytes Not Reportable 10/16/19 09:20 Helmet Cells Not Reportable 10/16/19 09:20 Varghese-Butternut Bodies Not Reportable 10/16/19 09:20 [place] Rings Not Reportable 10/16/19 09:20 [place] Cells Not Reportable 10/16/19 09:20 Bite Cells Not Reportable 10/16/19 09:20 Crenated Cell Not Reportable 10/16/19 09:20 Elliptocytes Not Reportable 10/16/19 09:20 Acanthocytes (Spur) Not Reportable 10/16/19 09:20 Rouleaux Not Reportable 10/16/19 09:20 Hemoglobin C Crystals Not Reportable 10/16/19 09:20 Schistocytes Not Reportable 10/16/19 09:20 Malaria parasites Not Reportable 10/16/19 09:20 Toni Bodies Not Reportable 10/16/19 09:20 Hem Pathologist Commnt No 10/16/19 09:20 POC ABG pH 7.422 (7.35-7.45) 11/03/19 04:28 ABG pH 7.390 pH Units (7.350-7.450) 10/23/19 04:47 POC ABG pCO2 45.4 (35-45) H 11/03/19 04:28 ABG pCO2 48.4 mm Hg 10/23/19 04:47 POC ABG pO2 83 (80-105) 11/03/19 04:28 ABG pO2 68.9 mm Hg (80.0-90.0) L 10/23/19 04:47 POC ABG HCO3 29.6 (22-26 mml/L) 11/03/19 04:28 ABG HCO3 28.7 mmol/L (20.0-26.0) H 10/23/19 04:47 POC ABG Total CO2 31 (23-27mmol/L) 11/03/19 04:28 POC ABG O2 Sat 96 11/03/19 04:28 ABG O2 Saturation 96.6 % (95.0-99.0) 10/23/19 04:47 ABG O2 Content 8.8 (0.0-44) 10/23/19 04:47 POC ABG Base Excess 5 ((-2) - (+3)mmol/L) 11/03/19 04:28 ABG Base Excess 3.4 mmol/L (-2.0-3.0) H 10/23/19 04:47 ABG Hemoglobin 6.6 gm/dl (14.0-18.0) L 10/23/19 04:47 ABG Carboxyhemoglobin 2.1 % (0.0-5.0) 10/23/19 04:47 ABG Methemoglobin 0.5 % (0.0-1.5) 10/23/19 04:47 Oxyhemoglobin 94.1 % (95.0-99.0) L 10/23/19 04:47 FiO2 40 % 11/03/19 04:28 Sodium 136 mmol/L (137-145) L 11/17/19 07:22 Potassium 3.7 mmol/L (3.6-5.0) 11/17/19 07:22 Chloride 96.1 mmol/L (98-107) L 11/17/19 07:22 Carbon Dioxide 23 mmol/L (22-30) 11/17/19 07:22 Anion Gap 21 mmol/L 11/17/19 07:22 BUN 7 mg/dL (9-20) L 11/17/19 07:22 Creatinine 0.5 mg/dL (0.8-1.5) L 11/17/19 07:22 Estimated GFR > 60 ml/min 11/17/19 07:22 BUN/Creatinine Ratio 14 % 11/17/19 07:22 Glucose 81 mg/dL (75-100) 11/17/19 07:22 POC Glucose 124 (70-105) H 11/17/19 00:40 Hemoglobin A1c 5.7 % (4-6) 10/06/19 05:36 Lactic Acid 1.10 mmol/L (0.7-2.0) 10/13/19 04:20 Calcium 8.9 mg/dL (8.4-10.2) 11/17/19 07:22 Ionized Calcium 5.2 mg/dL (4.8-5.6) 10/18/19 07:41 Phosphorus 2.70 mg/dL (2.5-4.5) 11/02/19 12:43 Magnesium 2.40 mg/dL (1.7-2.3) H 11/02/19 12:43 Total Bilirubin 1.10 mg/dL (0.1-1.2) 10/26/19 06:15 Direct Bilirubin 0.7 mg/dL (0-0.2) H 10/23/19 10:44 Indirect Bilirubin 0.1 mg/dL 10/23/19 10:44 AST 23 units/L (5-40) 10/26/19 06:15 ALT 13 units/L (7-56) 10/26/19 06:15 Alkaline Phosphatase 148 units/L (35-129) H 10/26/19 06:15 Ammonia 49.0 umol/L (25-60) 10/13/19 04:20 Troponin T < 0.010 ng/mL (0.00-0.029) 10/09/19 17:23 C-Reactive Protein 30.60 mg/dL (0.00-1.30) H 10/15/19 04:32 Serum Total Protein 5.2 g/dL (6.1-8.1) L 10/11/19 09:00 Total Protein 5.9 g/dL (6.3-8.2) L 10/26/19 06:15 Albumin 2.4 g/dL (3.9-5) L 10/26/19 06:15 Albumin/Globulin Ratio 0.7 % 10/26/19 06:15 Prealbumin 0.030 g/L (0.200-0.400) L 10/15/19 04:32 [id number] See scanned result 10/11/19 Unknown [id number]-[id number] See scanned result 10/11/19 Unknown Beta Globulins See scanned result 10/11/19 Unknown Gamma Globulins See scanned result 10/11/19 Unknown Abnorm Protein Band 1 see below 10/11/19 09:00 PEP Interpretation See scanned result 10/11/19 Unknown Triglycerides 185 mg/dL (2-149) H 10/26/19 06:15 Urine Color Yellow (Yellow) 10/26/19 Unknown Urine Turbidity Clear (Clear) 10/26/19 Unknown Urine pH 9.0 (5.0-7.0) H 10/26/19 Unknown Ur Specific [place] 1.011 (1.003-1.030) 10/26/19 Unknown Urine Protein 30 mg/dl mg/dL (Negative) 10/26/19 Unknown Urine Glucose (UA) Neg mg/dL (Negative) 10/26/19 Unknown Urine Ketones Neg mg/dL (Negative) 10/26/19 Unknown Urine Blood Neg (Negative) 10/26/19 Unknown Urine Nitrite Neg (Negative) 10/26/19 Unknown Urine Bilirubin Neg (Negative) 10/26/19 Unknown Urine Urobilinogen < 2.0 mg/dL (<2.0) 10/26/19 Unknown Ur Leukocyte Esterase Neg (Negative) 10/26/19 Unknown Urine WBC (Auto) 1.0 /HPF (0.0-6.0) 10/26/19 Unknown Urine RBC (Auto) 1.0 /HPF (0.0-6.0) 10/26/19 Unknown Urine Bacteria (Auto) 1+ /HPF (Negative) 10/11/19 06:23 Urine Mucus Few /HPF 10/26/19 Unknown Urine Eosinophils None seen (None Seen) 10/11/19 06:23 Ur Random Creatinine See scanned result 10/11/19 Unknown U Random Total Protein See scanned result 10/11/19 Unknown Urine Creatinine 116.8 mg/dL (0.1-20.0) H 10/11/19 06:23 Urine Creatinine 118.2 mg/dL (0.1-20.0) H 10/11/19 06:23 Protein/Creatinin Ratio See scanned result 10/11/19 Unknown Urine Sodium 14 mmol/L 10/11/19 06:23 Urine Total Protein 104 mg/dL (5-11.8) H 10/11/19 06:23 Urine Total Protein 105 mg/dL (5-11.8) H 10/11/19 06:23 U Abnormal Prot Band 1 See scanned result 10/11/19 Unknown U Abnormal Prot Band 2 See scanned result 10/11/19 Unknown U Abnormal Prot Band 3 See scanned result 10/11/19 Unknown Vancomycin Trough 5.7 ug/mL (5.0-20.0) 11/05/19 09:00 Random Vancomycin 9.6 ug/mL (0-40.0) 11/03/19 03:42 Digoxin 0.7 ng/mL (0.9-2.0) L 10/19/19 04:21 Blood Type A POSITIVE 10/23/19 11:50 Antibody Screen Negative 10/23/19 11:50 Crossmatch See Detail 10/23/19 11:50 Active Medications - Current Medications Current Medications: Generic Name Dose Route Start Last Admin Trade Name Freq PRN Reason Stop Dose Admin Acetaminophen 650 mg 10/25/19 13:00 11/03/19 16:03 Tylenol FEEDTUBE 650 mg Q4H PRN Administration Fever >100.5 Acetaminophen/Hydrocodone Bitart 7.5 mg 11/07/19 16:57 11/16/19 04:16 Hydrocodone/Apap 7.5-325 FEEDTUBE 7.5 mg Q4H PRN Administration Pain, Moderate (4-6) Albuterol/Ipratropium 1 ampul 10/06/19 02:00 11/17/19 08:50 Duoneb *Not For Prn Use* IH 1 ampul Q6HRT VERÓNICA Administration Amiodarone HCl 200 mg 10/23/19 13:00 11/17/19 10:04 Cordarone PO 200 mg QDAY VERÓNICA Administration Lipase/Protease/Amylase 1 each 10/20/19 10:37 Pancreaze 10,500 Unit FEEDTUBE PRN PRN For Clogged Feeding Tube Arformoterol Tartrate 15 mcg 10/06/19 08:30 11/17/19 08:50 Brovana Nebu IH 15 mcg Q12HRT VERÓNICA Administration Budesonide 0.5 mg 10/07/19 12:20 11/17/19 08:50 Pulmicort IH 0.5 mg Q12HRT VERÓNICA Administration Citalopram Hydrobromide 20 mg 10/27/19 12:00 11/17/19 10:00 Celexa PO 20 mg DAILY VERÓNICA Administration Enoxaparin Sodium 40 mg 11/05/19 22:00 11/16/19 21:19 Enoxaparin SUB-Q 40 mg QDAY@2200 VERÓNICA Administration Haloperidol Lactate 5 mg 10/25/19 18:22 11/12/19 03:33 Haldol IV 5 mg Q6H PRN Administration Agitation Hydralazine HCl 10 mg 10/28/19 14:09 11/02/19 15:34 Apresoline IV 10 mg Q4HR PRN Administration Hypertension Hydromorphone HCl 2 mg 10/25/19 12:35 11/17/19 09:59 Dilaudid IV 2 mg Q4H PRN Administration Pain , Severe (7-10) Insulin Human Lispro 0 unit 10/14/19 12:00 11/17/19 07:58 Humalog SUB-Q Not Given Q6HR [facility] Protocol Lisinopril 20 mg 10/30/19 10:00 11/17/19 09:55 Zestril PO Not Given QDAY [facility] Metoprolol Tartrate 2.5 mg 10/15/19 15:34 11/01/19 18:00 Metoprolol IV 2.5 mg Q4HR PRN Administration HR >130 Metoprolol Tartrate 50 mg 10/25/19 14:00 11/17/19 07:58 Metoprolol PO 50 mg Q8HR [facility] Administration Multi-Ingred Cream/Lotion/Oil/Oint 1 applic 10/14/19 02:19 Artificial Tears Ophth Oint OU Q4HR PRN Dry Eye(s) Pantoprazole Sodium 40 mg 10/15/19 10:00 11/17/19 09:59 Protonix IV 40 mg QDAY VERÓNICA Administration Simple Syrup 15 ml 10/20/19 10:37 Simple Syrup FEEDTUBE PRN PRN Hypoglycemia Simple Syrup 30 ml 10/20/19 10:37 Simple Syrup FEEDTUBE PRN PRN Hypoglycemia Sodium Bicarbonate 325 mg 10/20/19 10:37 11/14/19 05:59 Sodium Bicarbonate FEEDTUBE 325 mg PRN PRN Administration For Clogged Feeding Tube Sodium Chloride 10 ml 11/07/19 19:32 11/16/19 21:19 Sodium Chloride Flush Syringe 10 Ml IV 10 ml PRN PRN Administration LINE FLUSH Zolpidem Tartrate 5 mg 11/10/19 21:00 11/11/19 03:30 Ambien FEEDTUBE 5 mg QHS PRN Administration Sleep Nutrition/Malnutrition Assess - Dietary Evaluation Nutrition/Malnutrition Findings: Nutrition Notes Start: 10/08/19 11:36 Freq: Status: Active Protocol: Document 11/15/19 11:31 LP (Rec: 11/15/19 11:42 LP [id number]) Nutrition Notes Initial or Follow up Reassessment Current Diagnosis Acute Kidney Injury,COPD, Hypertension Other Pertinent Diagnosis intra-abdominal infection, disruption of bowel anastomosis, LE edema Current Diet Regular Labs/Tests Reviewed Pertinent Medications Reviewed Height 6 ft Weight 145 kg [place] Body Weight (kg) 80.90 BMI 43.3 Weight Status Morbidly Obese Subjective/Other Information Ostomy is functioning. TF on hold due to clogged j tube. Pt noted with eating 75-100% of meals. Pt sleeping at time of visit. Percent of energy/protein needs met: 86%/50% Burn Absent Trauma Absent GI Symptoms None Current % PO Good (75-100%) Minimum of two criteria No Fluid Accumulation Mild (non-severe) #2 Nutrition Diagnosis Inadequate oral intake As Evidenced by Signs and Symptoms Diet advanced and noted consuming 75-100% of meals Diagnosis Progress(for reassessment Improved documentation) #1 Nutrition Diagnosis Increased nutrient needs ( specify in comment below) Diagnosis Progress(for reassessment Continues documentation) Is patient on ventilator? No Is Patient Ambulatory and/or Out of Bed No REE-([place]-St. Jeor-confined to bed) 2785.236 Kcal/Kg value to use for calculation 14 Approximate Energy Requirements Using 2030 kcal/Kg Calculation Used for Recommendations Kcal/kg Additional Notes Protein: 136-169g (1.2-1.5g/kg ) AdjBW 113kg Fluid 1 ml/kcal or per MD Nutrition Intervention Change Diet Order: Continue regular Nutrition Support: D/C for now Add Supplement/Snack (indicate name/kcal Ensure High Protein BID /protein ) Provides kCal: 320 Provides Protein (gm) 32 Goal #1 Meet at least 80% of energy and protein needs via PO intakes Anticipated Discharge Needs: Regular diet Follow-Up By: 11/19/19 Additional Comments Follow for intakes and ONS tolerance
--- NOTE | 2019-11-17 12:50 | Progress Note ---
Assessment and Plan 54 y/o male with anastomic leak 11/17/19: No distress noted. Will only repeat CXR if needed. otherwise continue IS, oob to chair as tolerated if possible and will benefit from rehab. confirmed to me that patient was already on home O2 at 2-3 liters. Will not attempt to wean any further. 11/12/19: Spoke with surgery this am. Currently pleased with progress. Reviewed IR note, and they plan to remove CT today. Continue IS. Will speak with CM about looking into rehabs directly from [facility] as oppose to transferring to the floor first. 11/06: Chest tube intact. No air leak. Will ask IR if catheter can be pulled out normally (i.e. not some form of tunneled catheter). If so will have them take it out later this week. If [facility] beds available, good candidate for there, likely not quite ready for floor yet. 11/04: Stable self extubation. Continue chest tube to suction. Will likely start waterseal tomorrow. Goad maybe to get CT out Tuesday. All other drains per surgery. Encouraged use of IS regularly at the bedside and suctioning as needed per . 11/03: Looks clinically better. Na was better on repeat labs. Spoke with and surgery to update them both. Most likely will attempt extubation in the am. Will hold feeds for about an hour in the morning prior to extubation then restart. 11/02: Repeat labs this am. Hard time believing that 2 liters of normal saline made his sodium increase that much. Also, once i discuss with surgery, may consider giving more blood. Will also hold tube feeds briefly as well. In case any procedures. Lovenox held last night. Continue vent support 11/01: Spoke with Dr. Krause this am and understand his concerns. Have started the transfer process. Most ICU's throughout the city are on diversion or full. [facility] has received his Faces[facility] and we are awaiting to hear back from them. CXR is clear. Minimal vent settings. Will continue supportive care for now. Follow up any new ID recs given increasing white and fever. 10/31: Will check CXR tomorrow. Continue chest tube to suction. Will likely stay in until extubated. Continue drains. Explained to staff to be extremely careful with these drains so that they do not come out. 10/30: Acute on chronic respiratory failure requiring reintubation. Appreciate Anesthesia assistance as he was a difficult intubation when we had to change his tube out about 1 week ago. Will continue on 100% until after Scans and then start to wean back down. CXR yesterday looked like pulmonary edema but improved today with positive pressure. Continue supportive care and await results of scans. 10/29: Discussed today on rounds. Patient had some issues over the weekend with the ICE chips and liquids. Will obtain speech consult/eval prior to restarting clears today. Spoke with nutrition and they will adjust tube feeds with new goal. Once at goal will start to taper off TPN. ordered Incentive madhu to bedside. Will also restart home dose of elaine today. pain control and drainage monitoring. Will continue ICU care. 10/26: Patient stable overall. Not ready for floor. Would be ok with step down if beds are needed. If spikes temp again will order blood cultures x2, urine culture, UA and repeat CXR. Gave an additional 40 of lasix this am. Will give more potassium replacement. Continue trickle feeds for now. Will continue PO meds and restart home dose of citalopram. Wean FiO2 and flow for sats >88%. Mildly hypertensive but this was secondary to agitation. Normalizing now. 10/25: Will extubate today. Will use HFNC if distress or hypoxemia is noted. Not a good candidate for bipap given his recent abdominal issues. Spoke with who is now at bedside and surgery. Will continue to attempt to achieve net negative state daily. Hold on further albumin administration. Hypernatremia is iatrogenic from lasix administration Worse case scenario, will re-intubate with anesthesia. 10/24: Responding well to lasix and protein therapy. Will give 2 more doses of lasix today. Consider one for tonight as well. Last albumin today at 1800. CXR is stable, still with layering bilateral pleural effusions. Will reassess again tomorrow. Reviewed all other dairy consultant notes. Spoke with sisters at bedside, updated and spoke with surgery. 10/23: Long discussion with surgery and via phone. Anasarca is likely from decreased oncotic pressure and immobility of several days now that abdomen is finally closed. Now fluid is essentially leaking into the interstitium now that the abdomen is shut and there is increased intra-abdominal pressure. Total Protein is 4.5 and albumin is 1.2. This is to be expected given current illness. Will attempt to increase oncotic pressure with 2 units of PRBC's and albumin infusions for the next 24 hours starting at midnight tonight. Will give lasix inbetween transfusions and then again tonight. CXR is consistent with pulmonary edema volume overload. Will continue vent for now and after significant volume removal then will attempt extubation. Discussed with and she understands. Will continue to monitor. Agree with trickle feeds and cards has switched amio over to PO to be given through the G-tube. If tolerates, hopeful to be rid of TPN soon as this is necessary but excessive volume as well. 10/22: Added diprovan as more sedation was needed. Hopefully once closed and no leaks, patient can be extubated. Cards very concerned about length of time for IV amio. Will discuss with surgery the time frame that gut can be used. 10/21: Will hold on weaning until abdomen is closed, especially knowing mental status is good. Will focus on pain control. Replace electrolytes. Appreciate Surgery recs and detail. Follow up any new recs from cards. Or tomorrow for closure Subjective Date of service: 11/17/19 Principal diagnosis: acute renal failure Interval history: No acute pulmonary events. Objective Vital Signs - 12hr 11/17/19 11/17/19 11/17/19 04:37 08:08 08:55 Temperature 98.2 F 97.9 F Pulse Rate 76 79 Respiratory 18 18 Rate Blood Pressure 108/50 106/53 O2 Sat by Pulse 99 99 95 Oximetry 11/17/19 09:05 Temperature Pulse Rate 85 Respiratory Rate Blood Pressure O2 Sat by Pulse Oximetry Constitutional: no acute distress, alert, other (obese) Eyes: non-icteric ENT: oropharynx moist Neck: supple Effort: normal Ascultation: Bilateral: diminished breath sounds (bases) Cardiovascular: regular rate and rhythm (no mrg) Gastrointestinal: tender, other (obese, distended, ostomy in place; wound vac in place) Integumentary: normal Extremities: no cyanosis, pink and warm, edema (1+ bilateral LE edema) Neurologic: normal mental status, non-focal exam, pupils equal and round Psychiatric: mood appropriate, affect normal CBC and BMP: 11/17/19 07:22 11/17/19 07:22 ABG, PT/INR, D-dimer: ABG POC ABG pH 7.422 (7.35-7.45) 11/03/19 04:28 ABG pH 7.390 pH Units (7.350-7.450) 10/23/19 04:47 POC ABG pCO2 45.4 (35-45) H 11/03/19 04:28 ABG pCO2 48.4 mm Hg 10/23/19 04:47 POC ABG pO2 83 (80-105) 11/03/19 04:28 ABG pO2 68.9 mm Hg (80.0-90.0) L 10/23/19 04:47 POC ABG HCO3 29.6 (22-26 mml/L) 11/03/19 04:28 POC ABG Total CO2 31 (23-27mmol/L) 11/03/19 04:28 POC ABG O2 Sat 96 11/03/19 04:28 ABG O2 Saturation 96.6 % (95.0-99.0) 10/23/19 04:47 Abnormal lab findings: Abnormal Labs 10/06/19 10/06/19 10/07/19 05:36 05:36 05:54 WBC 21.8 H 21.5 H RBC 3.55 L Hgb 10.9 L Hct 32.7 L MCH MCHC RDW Plt Count Lymph % (Auto) [facility] % (Auto) Lymph # [facility] # Seg Neutrophils % Seg Neuts % (Manual) 91.0 H Lymphocytes % (Manual) 2.0 L Seg Neutrophils # Seg Neutrophils # Man 19.8 H Lymphocytes # (Manual) 0.4 L Monocytes # (Manual) 1.1 H POC ABG pH ABG pH POC ABG pCO2 POC ABG pO2 ABG pO2 ABG HCO3 ABG Base Excess ABG Hemoglobin Oxyhemoglobin Sodium 135 L Potassium Chloride 95.9 L Carbon Dioxide BUN Creatinine 0.7 L Glucose POC Glucose Calcium Phosphorus Magnesium Direct Bilirubin AST Alkaline Phosphatase C-Reactive Protein Serum Total Protein Total Protein 5.7 L Albumin 2.5 L Prealbumin Jzzps-2-Ftcmhskek Otjgo-7-Koinyfqid Gamma Globulins PEP Interpretation Triglycerides Urine pH Urine Creatinine Urine Total Protein Vancomycin Trough Digoxin Crossmatch 10/07/19 10/09/19 10/09/19 05:54 10:52 10:52 WBC 16.6 H RBC Hgb Hct MCH MCHC RDW Plt Count 498 H Lymph % (Auto) [facility] % (Auto) Lymph # [facility] # Seg Neutrophils % Seg Neuts % (Manual) 93.0 H Lymphocytes % (Manual) 5.0 L Seg Neutrophils # Seg Neutrophils # Man 15.4 H Lymphocytes # (Manual) 0.8 L Monocytes # (Manual) POC ABG pH ABG pH POC ABG pCO2 POC ABG pO2 ABG pO2 ABG HCO3 ABG Base Excess ABG Hemoglobin Oxyhemoglobin Sodium Potassium Chloride 97.9 L Carbon Dioxide 20 L D BUN 23 H Creatinine 1.7 H D Glucose 109 H POC Glucose Calcium 8.1 L Phosphorus Magnesium Direct Bilirubin AST Alkaline Phosphatase C-Reactive Protein Serum Total Protein Total Protein Albumin Prealbumin Srfjb-1-Zhdzifoee Vnooh-1-Twufdkols Gamma Globulins PEP Interpretation Triglycerides Urine pH Urine Creatinine Urine Total Protein Vancomycin Trough Digoxin Crossmatch 10/09/19 10/10/19 10/10/19 17:23 05:30 05:30 WBC 14.6 H RBC Hgb 11.1 L Hct 33.5 L MCH MCHC RDW Plt Count 527 H Lymph % (Auto) [facility] % (Auto) Lymph # [facility] # Seg Neutrophils % Seg Neuts % (Manual) Lymphocytes % (Manual) Seg Neutrophils # Seg Neutrophils # Man Lymphocytes # (Manual) Monocytes # (Manual) POC ABG pH ABG pH POC ABG pCO2 POC ABG pO2 ABG pO2 ABG HCO3 ABG Base Excess ABG Hemoglobin Oxyhemoglobin Sodium 130 L D Potassium 5.1 H Chloride 90.0 L 91.0 L Carbon Dioxide 20 L 20 L BUN 27 H 35 H Creatinine 1.9 H 2.0 H Glucose 104 H POC Glucose Calcium Phosphorus Magnesium Direct Bilirubin AST Alkaline Phosphatase C-Reactive Protein Serum Total Protein Total Protein Albumin Prealbumin Xqkmx-2-Obydcpjhy Nkckd-4-Fiagduptq Gamma Globulins PEP Interpretation Triglycerides Urine pH Urine Creatinine Urine Total Protein Vancomycin Trough Digoxin Crossmatch 10/10/19 10/10/19 10/11/19 08:33 08:44 05:41 WBC 13.2 H RBC Hgb 11.3 L Hct 33.8 L MCH MCHC RDW 15.3 H Plt Count 543 H Lymph % (Auto) [facility] % (Auto) Lymph # [facility] # Seg Neutrophils % Seg Neuts % (Manual) Lymphocytes % (Manual) Seg Neutrophils # Seg Neutrophils # Man Lymphocytes # (Manual) Monocytes # (Manual) POC ABG pH ABG pH POC ABG pCO2 POC ABG pO2 ABG pO2 ABG HCO3 ABG Base Excess ABG Hemoglobin Oxyhemoglobin Sodium Potassium Chloride Carbon Dioxide BUN Creatinine Glucose 113 H POC Glucose 117 H Calcium Phosphorus Magnesium Direct Bilirubin AST Alkaline Phosphatase C-Reactive Protein Serum Total Protein Total Protein Albumin Prealbumin Eyvfa-6-Ufjxgcnho Vxnrz-9-Rozotuvzo Gamma Globulins PEP Interpretation Triglycerides Urine pH Urine Creatinine Urine Total Protein Vancomycin Trough Digoxin Crossmatch 10/11/19 10/11/19 10/11/19 05:41 06:23 06:23 WBC RBC Hgb Hct MCH MCHC RDW Plt Count Lymph % (Auto) [facility] % (Auto) Lymph # [facility] # Seg Neutrophils % Seg Neuts % (Manual) Lymphocytes % (Manual) Seg Neutrophils # Seg Neutrophils # Man Lymphocytes # (Manual) Monocytes # (Manual) POC ABG pH ABG pH POC ABG pCO2 POC ABG pO2 ABG pO2 ABG HCO3 ABG Base Excess ABG Hemoglobin Oxyhemoglobin Sodium 134 L Potassium Chloride 96.3 L Carbon Dioxide BUN 37 H Creatinine Glucose 58 L POC Glucose Calcium Phosphorus 4.90 H Magnesium Direct Bilirubin AST Alkaline Phosphatase C-Reactive Protein Serum Total Protein Total Protein Albumin Prealbumin Fljiw-9-Glgnqlqwt Ujhjf-2-Piweyyavp Gamma Globulins PEP Interpretation Triglycerides Urine pH Urine Creatinine 118.2 H 116.8 H Urine Total Protein 105 H 104 H Vancomycin Trough Digoxin Crossmatch 10/11/19 10/12/19 10/12/19 09:00 06:09 06:09 WBC 13.8 H RBC 3.39 L Hgb 10.2 L Hct 30.9 L MCH MCHC RDW 15.5 H Plt Count 459 H Lymph % (Auto) [facility] % (Auto) Lymph # [facility] # Seg Neutrophils % Seg Neuts % (Manual) Lymphocytes % (Manual) Seg Neutrophils # Seg Neutrophils # Man Lymphocytes # (Manual) Monocytes # (Manual) POC ABG pH ABG pH POC ABG pCO2 POC ABG pO2 ABG pO2 ABG HCO3 ABG Base Excess ABG Hemoglobin Oxyhemoglobin Sodium 131 L Potassium Chloride 96.2 L Carbon Dioxide 21 L BUN 43 H Creatinine Glucose 72 L POC Glucose Calcium Phosphorus Magnesium Direct Bilirubin AST Alkaline Phosphatase C-Reactive Protein Serum Total Protein 5.2 L Total Protein Albumin 1.9 L Prealbumin Fqtwc-8-Bucgwzvea 0.9 H Oedew-7-Zpwnhbcyd 1.0 H Gamma Globulins 0.7 L PEP Interpretation see below H Triglycerides Urine pH Urine Creatinine Urine Total Protein Vancomycin Trough Digoxin Crossmatch 10/12/19 10/12/19 10/12/19 08:20 09:30 09:30 WBC RBC Hgb Hct MCH MCHC RDW Plt Count Lymph % (Auto) [facility] % (Auto) Lymph # [facility] # Seg Neutrophils % Seg Neuts % (Manual) Lymphocytes % (Manual) Seg Neutrophils # Seg Neutrophils # Man Lymphocytes # (Manual) Monocytes # (Manual) POC ABG pH ABG pH POC ABG pCO2 POC ABG pO2 63 L ABG pO2 ABG HCO3 ABG Base Excess ABG Hemoglobin Oxyhemoglobin Sodium Potassium Chloride Carbon Dioxide BUN Creatinine Glucose POC Glucose Calcium Phosphorus Magnesium 2.50 H Direct Bilirubin 0.3 H AST Alkaline Phosphatase C-Reactive Protein Serum Total Protein Total Protein 5.1 L Albumin 2.2 L Prealbumin Ecwvi-0-Kdykdwcbg Mwkut-5-Jvnoeovfy Gamma Globulins PEP Interpretation Triglycerides Urine pH Urine Creatinine Urine Total Protein Vancomycin Trough Digoxin Crossmatch 10/13/19 10/13/19 10/13/19 04:20 04:20 13:20 WBC 15.7 H RBC 3.64 L Hgb 10.9 L Hct 33.1 L MCH MCHC RDW 15.8 H Plt Count 488 H Lymph % (Auto) [facility] % (Auto) Lymph # [facility] # Seg Neutrophils % Seg Neuts % (Manual) Lymphocytes % (Manual) Seg Neutrophils # Seg Neutrophils # Man Lymphocytes # (Manual) Monocytes # (Manual) POC ABG pH ABG pH POC ABG pCO2 POC ABG pO2 ABG pO2 ABG HCO3 ABG Base Excess ABG Hemoglobin Oxyhemoglobin Sodium Potassium Chloride Carbon Dioxide BUN 28 H Creatinine Glucose POC Glucose Calcium Phosphorus Magnesium Direct Bilirubin AST Alkaline Phosphatase C-Reactive Protein Serum Total Protein Total Protein Albumin Prealbumin Rtfbx-6-Qxtvblcod Kathn-7-Gkpyxjdml Gamma Globulins PEP Interpretation Triglycerides Urine pH Urine Creatinine Urine Total Protein Vancomycin Trough Digoxin Crossmatch See Detail 10/13/19 10/13/19 10/14/19 18:24 20:05 04:47 WBC 24.2 H RBC Hgb 10.9 L Hct 34.2 L MCH MCHC RDW 17.0 H Plt Count 442 H Lymph % (Auto) [facility] % (Auto) Lymph # [facility] # Seg Neutrophils % Seg Neuts % (Manual) Lymphocytes % (Manual) Seg Neutrophils # Seg Neutrophils # Man Lymphocytes # (Manual) Monocytes # (Manual) POC ABG pH ABG pH 7.180 L* 7.278 L POC ABG pCO2 POC ABG pO2 ABG pO2 130.7 H ABG HCO3 ABG Base Excess -6.5 L -6.5 L ABG Hemoglobin 12.2 L 12.3 L Oxyhemoglobin 92.9 L Sodium Potassium Chloride Carbon Dioxide BUN Creatinine Glucose POC Glucose Calcium Phosphorus Magnesium Direct Bilirubin AST Alkaline Phosphatase C-Reactive Protein Serum Total Protein Total Protein Albumin Prealbumin Nopne-8-Eeozcoipa Guadd-5-Bmavfcimp Gamma Globulins PEP Interpretation Triglycerides Urine pH Urine Creatinine Urine Total Protein Vancomycin Trough Digoxin Crossmatch 10/14/19 10/14/19 10/14/19 04:47 05:40 10:14 WBC RBC Hgb Hct MCH MCHC RDW Plt Count Lymph % (Auto) [facility] % (Auto) Lymph # [facility] # Seg Neutrophils % Seg Neuts % (Manual) Lymphocytes % (Manual) Seg Neutrophils # Seg Neutrophils # Man Lymphocytes # (Manual) Monocytes # (Manual) POC ABG pH ABG pH POC ABG pCO2 POC ABG pO2 ABG pO2 76.3 L ABG HCO3 19.1 L ABG Base Excess -5.8 L ABG Hemoglobin 10.9 L Oxyhemoglobin 93.4 L Sodium Potassium 5.1 H D Chloride 109.2 H Carbon Dioxide 17 L BUN 38 H Creatinine 1.8 H D Glucose 104 H POC Glucose Calcium 7.4 L Phosphorus 5.60 H Magnesium Direct Bilirubin AST Alkaline Phosphatase C-Reactive Protein Serum Total Protein Total Protein Albumin Prealbumin Brdbu-3-Wbaoayyeq Cjbaz-9-Bunozrlxg Gamma Globulins PEP Interpretation Triglycerides Urine pH Urine Creatinine Urine Total Protein Vancomycin Trough Digoxin Crossmatch 10/14/19 10/15/19 10/15/19 23:46 04:32 04:32 WBC 15.5 H RBC 2.89 L Hgb 8.8 L Hct 27.3 L D MCH MCHC RDW 16.6 H Plt Count Lymph % (Auto) [facility] % (Auto) Lymph # [facility] # Seg Neutrophils % Seg Neuts % (Manual) Lymphocytes % (Manual) Seg Neutrophils # Seg Neutrophils # Man Lymphocytes # (Manual) Monocytes # (Manual) POC ABG pH ABG pH POC ABG pCO2 POC ABG pO2 ABG pO2 ABG HCO3 ABG Base Excess ABG Hemoglobin Oxyhemoglobin Sodium 147 H Potassium Chloride 114.0 H Carbon Dioxide 19 L BUN 42 H Creatinine Glucose 112 H POC Glucose 113 H Calcium 7.3 L Phosphorus Magnesium Direct Bilirubin AST 72 H Alkaline Phosphatase C-Reactive Protein 30.60 H Serum Total Protein Total Protein 4.0 L D Albumin 1.7 L Prealbumin 0.030 L Vqxmm-5-Wdzbpyrfl Tzfee-8-Jnufwiegc Gamma Globulins PEP Interpretation Triglycerides Urine pH Urine Creatinine Urine Total Protein Vancomycin Trough Digoxin Crossmatch 10/15/19 10/15/19 10/15/19 05:30 12:08 17:23 WBC RBC Hgb Hct MCH MCHC RDW Plt Count Lymph % (Auto) [facility] % (Auto) Lymph # [facility] # Seg Neutrophils % Seg Neuts % (Manual) Lymphocytes % (Manual) Seg Neutrophils # Seg Neutrophils # Man Lymphocytes # (Manual) Monocytes # (Manual) POC ABG pH ABG pH 7.296 L POC ABG pCO2 POC ABG pO2 ABG pO2 114.7 H ABG HCO3 ABG Base Excess -3.7 L ABG Hemoglobin 8.9 L Oxyhemoglobin Sodium Potassium Chloride Carbon Dioxide BUN Creatinine Glucose POC Glucose 106 H 106 H Calcium Phosphorus Magnesium Direct Bilirubin AST Alkaline Phosphatase C-Reactive Protein Serum Total Protein Total Protein Albumin Prealbumin Djgwy-5-Mosnxuhse Cmqco-8-Dnppowzxq Gamma Globulins PEP Interpretation Triglycerides Urine pH Urine Creatinine Urine Total Protein Vancomycin Trough Digoxin Crossmatch 10/16/19 10/16/19 10/16/19 00:07 04:44 05:24 WBC RBC Hgb Hct MCH MCHC RDW Plt Count Lymph % (Auto) [facility] % (Auto) Lymph # [facility] # Seg Neutrophils % Seg Neuts % (Manual) Lymphocytes % (Manual) Seg Neutrophils # Seg Neutrophils # Man Lymphocytes # (Manual) Monocytes # (Manual) POC ABG pH ABG pH POC ABG pCO2 POC ABG pO2 ABG pO2 ABG HCO3 ABG Base Excess ABG Hemoglobin Oxyhemoglobin Sodium 150 H Potassium Chloride 115.8 H Carbon Dioxide BUN 35 H Creatinine Glucose 129 H POC Glucose 119 H 129 H Calcium 7.3 L Phosphorus 1.80 L D Magnesium Direct Bilirubin AST Alkaline Phosphatase C-Reactive Protein Serum Total Protein Total Protein Albumin Prealbumin Qojxc-0-Hjohbzecp Gbwee-2-Rwpgnaoxs Gamma Globulins PEP Interpretation Triglycerides Urine pH Urine Creatinine Urine Total Protein Vancomycin Trough Digoxin Crossmatch 10/16/19 10/16/19 10/16/19 06:53 09:20 11:58 WBC 14.6 H RBC 2.70 L Hgb 8.1 L Hct 25.2 L MCH MCHC RDW 16.7 H Plt Count Lymph % (Auto) [facility] % (Auto) Lymph # [facility] # Seg Neutrophils % Seg Neuts % (Manual) 79.0 H Lymphocytes % (Manual) 4.0 L Seg Neutrophils # Seg Neutrophils # Man 11.5 H Lymphocytes # (Manual) 0.6 L Monocytes # (Manual) POC ABG pH ABG pH POC ABG pCO2 47.0 H POC ABG pO2 ABG pO2 ABG HCO3 ABG Base Excess ABG Hemoglobin Oxyhemoglobin Sodium Potassium Chloride Carbon Dioxide BUN Creatinine Glucose POC Glucose Calcium Phosphorus Magnesium Direct Bilirubin AST Alkaline Phosphatase C-Reactive Protein Serum Total Protein Total Protein Albumin Prealbumin Qrmdx-2-Drjyuqnhs Znrzo-4-Hkjtublvy Gamma Globulins PEP Interpretation Triglycerides Urine pH Urine Creatinine Urine Total Protein Vancomycin Trough Digoxin Crossmatch See Detail 10/16/19 10/16/19 10/16/19 15:23 17:50 23:58 WBC RBC Hgb Hct MCH MCHC RDW Plt Count Lymph % (Auto) [facility] % (Auto) Lymph # [facility] # Seg Neutrophils % Seg Neuts % (Manual) Lymphocytes % (Manual) Seg Neutrophils # Seg Neutrophils # Man Lymphocytes # (Manual) Monocytes # (Manual) POC ABG pH ABG pH POC ABG pCO2 POC ABG pO2 ABG pO2 ABG HCO3 ABG Base Excess ABG Hemoglobin Oxyhemoglobin Sodium Potassium Chloride Carbon Dioxide BUN Creatinine Glucose POC Glucose 221 H 201 H 179 H Calcium Phosphorus Magnesium Direct Bilirubin AST Alkaline Phosphatase C-Reactive Protein Serum Total Protein Total Protein Albumin Prealbumin Lmakr-5-Jmzvpmpxb Bhxxo-1-Qiabxitav Gamma Globulins PEP Interpretation Triglycerides Urine pH Urine Creatinine Urine Total Protein Vancomycin Trough Digoxin Crossmatch 10/17/19 10/17/19 10/17/19 04:08 04:08 05:41 WBC 22.3 H RBC 3.35 L Hgb 10.0 L Hct 31.2 L D MCH MCHC RDW 16.1 H Plt Count Lymph % (Auto) [facility] % (Auto) Lymph # [facility] # Seg Neutrophils % Seg Neuts % (Manual) Lymphocytes % (Manual) Seg Neutrophils # Seg Neutrophils # Man Lymphocytes # (Manual) Monocytes # (Manual) POC ABG pH 7.310 L ABG pH POC ABG pCO2 52.8 H POC ABG pO2 70 L ABG pO2 ABG HCO3 ABG Base Excess ABG Hemoglobin Oxyhemoglobin Sodium 147 H Potassium Chloride 114.9 H Carbon Dioxide BUN 36 H Creatinine Glucose 165 H POC Glucose Calcium 6.9 L Phosphorus 2.20 L D Magnesium Direct Bilirubin AST Alkaline Phosphatase C-Reactive Protein Serum Total Protein Total Protein Albumin Prealbumin Njjsi-0-Vpdljvlpi Ypcnz-3-Dqvskntvv Gamma Globulins PEP Interpretation Triglycerides Urine pH Urine Creatinine Urine Total Protein Vancomycin Trough Digoxin Crossmatch 10/17/19 10/17/19 10/17/19 05:42 11:33 18:17 WBC RBC Hgb Hct MCH MCHC RDW Plt Count Lymph % (Auto) [facility] % (Auto) Lymph # [facility] # Seg Neutrophils % Seg Neuts % (Manual) Lymphocytes % (Manual) Seg Neutrophils # Seg Neutrophils # Man Lymphocytes # (Manual) Monocytes # (Manual) POC ABG pH ABG pH POC ABG pCO2 POC ABG pO2 ABG pO2 ABG HCO3 ABG Base Excess ABG Hemoglobin Oxyhemoglobin Sodium Potassium Chloride Carbon Dioxide BUN Creatinine Glucose POC Glucose 149 H 154 H 163 H Calcium Phosphorus Magnesium Direct Bilirubin AST Alkaline Phosphatase C-Reactive Protein Serum Total Protein Total Protein Albumin Prealbumin Szmfj-3-Ibivevmbs Gukek-2-Oyuprazlj Gamma Globulins PEP Interpretation Triglycerides Urine pH Urine Creatinine Urine Total Protein Vancomycin Trough Digoxin Crossmatch 10/17/19 10/18/19 10/18/19 23:34 03:29 04:50 WBC RBC Hgb Hct MCH MCHC RDW Plt Count Lymph % (Auto) [facility] % (Auto) Lymph # [facility] # Seg Neutrophils % Seg Neuts % (Manual) Lymphocytes % (Manual) Seg Neutrophils # Seg Neutrophils # Man Lymphocytes # (Manual) Monocytes # (Manual) POC ABG pH ABG pH POC ABG pCO2 POC ABG pO2 ABG pO2 78.8 L ABG HCO3 ABG Base Excess ABG Hemoglobin 8.8 L Oxyhemoglobin Sodium Potassium Chloride 111.8 H Carbon Dioxide BUN 27 H Creatinine 0.6 L Glucose 140 H POC Glucose 135 H Calcium 7.1 L Phosphorus 1.80 L Magnesium Direct Bilirubin AST Alkaline Phosphatase C-Reactive Protein Serum Total Protein Total Protein Albumin Prealbumin Medzh-5-Eeoltmxac Hstlm-7-Dczctnmuv Gamma Globulins PEP Interpretation Triglycerides Urine pH Urine Creatinine Urine Total Protein Vancomycin Trough Digoxin Crossmatch 10/18/19 10/18/19 10/18/19 05:45 11:19 18:26 WBC RBC Hgb Hct MCH MCHC RDW Plt Count Lymph % (Auto) [facility] % (Auto) Lymph # [facility] # Seg Neutrophils % Seg Neuts % (Manual) Lymphocytes % (Manual) Seg Neutrophils # Seg Neutrophils # Man Lymphocytes # (Manual) Monocytes # (Manual) POC ABG pH ABG pH POC ABG pCO2 POC ABG pO2 ABG pO2 ABG HCO3 ABG Base Excess ABG Hemoglobin Oxyhemoglobin Sodium Potassium Chloride Carbon Dioxide BUN Creatinine Glucose POC Glucose 145 H 152 H 125 H Calcium Phosphorus Magnesium Direct Bilirubin AST Alkaline Phosphatase C-Reactive Protein Serum Total Protein Total Protein Albumin Prealbumin Fuszo-0-Akanderbv Ookez-4-Mvsyitqfc Gamma Globulins PEP Interpretation Triglycerides Urine pH Urine Creatinine Urine Total Protein Vancomycin Trough Digoxin Crossmatch 10/18/19 10/19/19 10/19/19 23:27 04:21 04:21 WBC RBC Hgb Hct MCH MCHC RDW Plt Count Lymph % (Auto) [facility] % (Auto) Lymph # [facility] # Seg Neutrophils % Seg Neuts % (Manual) Lymphocytes % (Manual) Seg Neutrophils # Seg Neutrophils # Man Lymphocytes # (Manual) Monocytes # (Manual) POC ABG pH ABG pH POC ABG pCO2 POC ABG pO2 ABG pO2 ABG HCO3 ABG Base Excess ABG Hemoglobin Oxyhemoglobin Sodium Potassium Chloride 108.4 H Carbon Dioxide BUN 22 H Creatinine 0.5 L Glucose 123 H POC Glucose 127 H Calcium 7.4 L Phosphorus 1.80 L Magnesium Direct Bilirubin AST Alkaline Phosphatase C-Reactive Protein Serum Total Protein Total Protein Albumin Prealbumin Zjmcq-4-Ukesylbtb Dfoho-4-Flrbyxfvz Gamma Globulins PEP Interpretation Triglycerides Urine pH Urine Creatinine Urine Total Protein Vancomycin Trough Digoxin 0.7 L Crossmatch 10/19/19 10/19/19 10/19/19 05:00 05:35 11:26 WBC RBC Hgb Hct MCH MCHC RDW Plt Count Lymph % (Auto) [facility] % (Auto) Lymph # [facility] # Seg Neutrophils % Seg Neuts % (Manual) Lymphocytes % (Manual) Seg Neutrophils # Seg Neutrophils # Man Lymphocytes # (Manual) Monocytes # (Manual) POC ABG pH ABG pH 7.456 H POC ABG pCO2 POC ABG pO2 ABG pO2 78.8 L ABG HCO3 ABG Base Excess ABG Hemoglobin 5.6 L Oxyhemoglobin Sodium Potassium Chloride Carbon Dioxide BUN Creatinine Glucose POC Glucose 124 H 111 H Calcium Phosphorus Magnesium Direct Bilirubin AST Alkaline Phosphatase C-Reactive Protein Serum Total Protein Total Protein Albumin Prealbumin Lmbvj-7-Nfmmphppk Sqrdx-2-Rfurlxwgl Gamma Globulins PEP Interpretation Triglycerides Urine pH Urine Creatinine Urine Total Protein Vancomycin Trough Digoxin Crossmatch 10/19/19 10/20/19 10/20/19 23:23 04:50 05:17 WBC RBC Hgb Hct MCH MCHC RDW Plt Count Lymph % (Auto) [facility] % (Auto) Lymph # [facility] # Seg Neutrophils % Seg Neuts % (Manual) Lymphocytes % (Manual) Seg Neutrophils # Seg Neutrophils # Man Lymphocytes # (Manual) Monocytes # (Manual) POC ABG pH ABG pH POC ABG pCO2 POC ABG pO2 ABG pO2 ABG HCO3 ABG Base Excess ABG Hemoglobin Oxyhemoglobin Sodium Potassium Chloride 108.1 H Carbon Dioxide BUN Creatinine 0.4 L Glucose 134 H POC Glucose 129 H 123 H Calcium 7.1 L Phosphorus Magnesium Direct Bilirubin AST Alkaline Phosphatase C-Reactive Protein Serum Total Protein Total Protein Albumin Prealbumin Yqrya-6-Ayxfuyfye Ftuou-9-Vsjbfkonp Gamma Globulins PEP Interpretation Triglycerides Urine pH Urine Creatinine Urine Total Protein Vancomycin Trough Digoxin Crossmatch 10/20/19 10/20/19 10/21/19 11:40 19:06 05:08 WBC RBC Hgb Hct MCH MCHC RDW Plt Count Lymph % (Auto) [facility] % (Auto) Lymph # [facility] # Seg Neutrophils % Seg Neuts % (Manual) Lymphocytes % (Manual) Seg Neutrophils # Seg Neutrophils # Man Lymphocytes # (Manual) Monocytes # (Manual) POC ABG pH ABG pH POC ABG pCO2 POC ABG pO2 ABG pO2 ABG HCO3 ABG Base Excess ABG Hemoglobin Oxyhemoglobin Sodium Potassium Chloride Carbon Dioxide BUN Creatinine Glucose POC Glucose 139 H 117 H 131 H Calcium Phosphorus Magnesium Direct Bilirubin AST Alkaline Phosphatase C-Reactive Protein Serum Total Protein Total Protein Albumin Prealbumin Jlofm-5-Qyplailfj Jfwte-5-Oakkduasb Gamma Globulins PEP Interpretation Triglycerides Urine pH Urine Creatinine Urine Total Protein Vancomycin Trough Digoxin Crossmatch 10/21/19 10/21/19 10/21/19 05:30 12:04 17:31 WBC RBC Hgb Hct MCH MCHC RDW Plt Count Lymph % (Auto) [facility] % (Auto) Lymph # [facility] # Seg Neutrophils % Seg Neuts % (Manual) Lymphocytes % (Manual) Seg Neutrophils # Seg Neutrophils # Man Lymphocytes # (Manual) Monocytes # (Manual) POC ABG pH ABG pH POC ABG pCO2 POC ABG pO2 ABG pO2 ABG HCO3 ABG Base Excess ABG Hemoglobin Oxyhemoglobin Sodium Potassium Chloride 107.8 H Carbon Dioxide BUN Creatinine 0.5 L Glucose 119 H POC Glucose 119 H 110 H Calcium 7.6 L Phosphorus Magnesium Direct Bilirubin AST Alkaline Phosphatase C-Reactive Protein Serum Total Protein Total Protein Albumin Prealbumin Ektws-5-Wjkeriyvs Dslqr-8-Wfaplaiek Gamma Globulins PEP Interpretation Triglycerides Urine pH Urine Creatinine Urine Total Protein Vancomycin Trough Digoxin Crossmatch 10/22/19 10/22/19 10/22/19 05:14 05:37 12:07 WBC RBC Hgb Hct MCH MCHC RDW Plt Count Lymph % (Auto) [facility] % (Auto) Lymph # [facility] # Seg Neutrophils % Seg Neuts % (Manual) Lymphocytes % (Manual) Seg Neutrophils # Seg Neutrophils # Man Lymphocytes # (Manual) Monocytes # (Manual) POC ABG pH ABG pH POC ABG pCO2 POC ABG pO2 ABG pO2 ABG HCO3 ABG Base Excess ABG Hemoglobin Oxyhemoglobin Sodium Potassium Chloride Carbon Dioxide BUN Creatinine 0.5 L Glucose 116 H POC Glucose 110 H 126 H Calcium 7.7 L Phosphorus Magnesium Direct Bilirubin AST Alkaline Phosphatase C-Reactive Protein Serum Total Protein Total Protein Albumin Prealbumin Uukup-5-Egryzmhjv Fszmv-2-Yjekmjlmm Gamma Globulins PEP Interpretation Triglycerides Urine pH Urine Creatinine Urine Total Protein Vancomycin Trough Digoxin Crossmatch 10/22/19 10/22/19 10/23/19 18:36 23:19 04:39 WBC RBC Hgb Hct MCH MCHC RDW Plt Count Lymph % (Auto) [facility] % (Auto) Lymph # [facility] # Seg Neutrophils % Seg Neuts % (Manual) Lymphocytes % (Manual) Seg Neutrophils # Seg Neutrophils # Man Lymphocytes # (Manual) Monocytes # (Manual) POC ABG pH ABG pH POC ABG pCO2 POC ABG pO2 ABG pO2 ABG HCO3 ABG Base Excess ABG Hemoglobin Oxyhemoglobin Sodium Potassium Chloride Carbon Dioxide BUN Creatinine Glucose POC Glucose 120 H 127 H 112 H Calcium Phosphorus Magnesium Direct Bilirubin AST Alkaline Phosphatase C-Reactive Protein Serum Total Protein Total Protein Albumin Prealbumin Lvsbd-7-Ylsdiunji Hdvgo-1-Opihrvivg Gamma Globulins PEP Interpretation Triglycerides Urine pH Urine Creatinine Urine Total Protein Vancomycin Trough Digoxin Crossmatch 10/23/19 10/23/19 10/23/19 04:47 05:15 10:44 WBC 18.3 H RBC 2.33 L Hgb 7.0 L Hct 21.5 L MCH MCHC RDW 16.2 H Plt Count Lymph % (Auto) 4.9 L [facility] % (Auto) 8.1 H Lymph # 0.9 L [facility] # 1.5 H Seg Neutrophils % 86.7 H Seg Neuts % (Manual) Lymphocytes % (Manual) Seg Neutrophils # 15.9 H Seg Neutrophils # Man Lymphocytes # (Manual) Monocytes # (Manual) POC ABG pH ABG pH POC ABG pCO2 POC ABG pO2 ABG pO2 68.9 L ABG HCO3 28.7 H ABG Base Excess 3.4 H ABG Hemoglobin 6.6 L Oxyhemoglobin 94.1 L Sodium Potassium Chloride Carbon Dioxide BUN Creatinine 0.5 L Glucose 165 H POC Glucose Calcium 7.4 L Phosphorus Magnesium Direct Bilirubin AST Alkaline Phosphatase C-Reactive Protein Serum Total Protein Total Protein Albumin Prealbumin Wgaab-0-Iusahrrki Joniq-1-Cdhrwywcx Gamma Globulins PEP Interpretation Triglycerides Urine pH Urine Creatinine Urine Total Protein Vancomycin Trough Digoxin Crossmatch 10/23/19 10/23/19 10/23/19 10:44 11:46 11:50 WBC RBC Hgb Hct MCH MCHC RDW Plt Count Lymph % (Auto) [facility] % (Auto) Lymph # [facility] # Seg Neutrophils % Seg Neuts % (Manual) Lymphocytes % (Manual) Seg Neutrophils # Seg Neutrophils # Man Lymphocytes # (Manual) Monocytes # (Manual) POC ABG pH ABG pH POC ABG pCO2 POC ABG pO2 ABG pO2 ABG HCO3 ABG Base Excess ABG Hemoglobin Oxyhemoglobin Sodium Potassium Chloride Carbon Dioxide BUN Creatinine Glucose POC Glucose 138 H Calcium Phosphorus Magnesium Direct Bilirubin 0.7 H AST Alkaline Phosphatase C-Reactive Protein Serum Total Protein Total Protein 4.5 L Albumin 1.2 L Prealbumin Pcfqf-3-Hytzxoujz Baxcl-3-Hsdiidbfd Gamma Globulins PEP Interpretation Triglycerides Urine pH Urine Creatinine Urine Total Protein Vancomycin Trough Digoxin Crossmatch See Detail 10/23/19 10/24/19 10/24/19 17:53 00:07 05:05 WBC RBC Hgb Hct MCH MCHC RDW Plt Count Lymph % (Auto) [facility] % (Auto) Lymph # [facility] # Seg Neutrophils % Seg Neuts % (Manual) Lymphocytes % (Manual) Seg Neutrophils # Seg Neutrophils # Man Lymphocytes # (Manual) Monocytes # (Manual) POC ABG pH ABG pH POC ABG pCO2 POC ABG pO2 ABG pO2 ABG HCO3 ABG Base Excess ABG Hemoglobin Oxyhemoglobin Sodium Potassium 3.5 L Chloride Carbon Dioxide BUN Creatinine 0.5 L Glucose 116 H POC Glucose 137 H 110 H Calcium 8.0 L Phosphorus Magnesium Direct Bilirubin AST Alkaline Phosphatase C-Reactive Protein Serum Total Protein Total Protein Albumin Prealbumin Vaihf-0-Fyuujkjro Hptea-5-Iiahncjll Gamma Globulins PEP Interpretation Triglycerides Urine pH Urine Creatinine Urine Total Protein Vancomycin Trough Digoxin Crossmatch 10/24/19 10/24/19 10/24/19 05:05 11:56 13:00 WBC 13.0 H RBC 2.73 L Hgb 8.0 L Hct 24.2 L MCH MCHC RDW 17.9 H Plt Count Lymph % (Auto) 7.0 L [facility] % (Auto) 9.5 H Lymph # 0.9 L [facility] # 1.2 H Seg Neutrophils % 82.7 H Seg Neuts % (Manual) Lymphocytes % (Manual) Seg Neutrophils # 10.7 H Seg Neutrophils # Man Lymphocytes # (Manual) Monocytes # (Manual) POC ABG pH ABG pH POC ABG pCO2 POC ABG pO2 ABG pO2 ABG HCO3 ABG Base Excess ABG Hemoglobin Oxyhemoglobin Sodium Potassium Chloride Carbon Dioxide BUN Creatinine Glucose POC Glucose 159 H Calcium Phosphorus Magnesium Direct Bilirubin AST Alkaline Phosphatase C-Reactive Protein Serum Total Protein Total Protein Albumin Prealbumin Tgmll-8-Siclccwwn Pbyvr-4-Uupqsrwvf Gamma Globulins PEP Interpretation Triglycerides 216 H Urine pH Urine Creatinine Urine Total Protein Vancomycin Trough Digoxin Crossmatch 10/24/19 10/24/19 10/25/19 17:42 23:45 04:19 WBC RBC Hgb Hct MCH MCHC RDW Plt Count Lymph % (Auto) [facility] % (Auto) Lymph # [facility] # Seg Neutrophils % Seg Neuts % (Manual) Lymphocytes % (Manual) Seg Neutrophils # Seg Neutrophils # Man Lymphocytes # (Manual) Monocytes # (Manual) POC ABG pH ABG pH POC ABG pCO2 POC ABG pO2 ABG pO2 ABG HCO3 ABG Base Excess ABG Hemoglobin Oxyhemoglobin Sodium 147 H Potassium Chloride Carbon Dioxide 33 H BUN Creatinine 0.5 L Glucose 111 H POC Glucose 120 H 116 H Calcium Phosphorus Magnesium Direct Bilirubin AST Alkaline Phosphatase C-Reactive Protein Serum Total Protein Total Protein 5.7 L D Albumin 2.5 L Prealbumin Ijhok-7-Wjwinybug Hqczc-9-Jgxovxtes Gamma Globulins PEP Interpretation Triglycerides 230 H Urine pH Urine Creatinine Urine Total Protein Vancomycin Trough Digoxin Crossmatch 10/25/19 10/25/19 10/25/19 04:19 05:31 12:20 WBC RBC 2.69 L Hgb 8.1 L Hct 23.9 L MCH MCHC RDW 17.3 H Plt Count Lymph % (Auto) [facility] % (Auto) Lymph # [facility] # Seg Neutrophils % Seg Neuts % (Manual) Lymphocytes % (Manual) Seg Neutrophils # Seg Neutrophils # Man Lymphocytes # (Manual) Monocytes # (Manual) POC ABG pH ABG pH POC ABG pCO2 POC ABG pO2 ABG pO2 ABG HCO3 ABG Base Excess ABG Hemoglobin Oxyhemoglobin Sodium Potassium Chloride Carbon Dioxide BUN Creatinine Glucose POC Glucose 126 H 114 H Calcium Phosphorus Magnesium Direct Bilirubin AST Alkaline Phosphatase C-Reactive Protein Serum Total Protein Total Protein Albumin Prealbumin Ufpdv-0-Ymnjywpwc Ukpkv-8-Nqmmsjpdj Gamma Globulins PEP Interpretation Triglycerides Urine pH Urine Creatinine Urine Total Protein Vancomycin Trough Digoxin Crossmatch 10/25/19 10/25/19 10/26/19 18:30 23:09 06:15 WBC RBC Hgb Hct MCH MCHC RDW Plt Count Lymph % (Auto) [facility] % (Auto) Lymph # [facility] # Seg Neutrophils % Seg Neuts % (Manual) Lymphocytes % (Manual) Seg Neutrophils # Seg Neutrophils # Man Lymphocytes # (Manual) Monocytes # (Manual) POC ABG pH ABG pH POC ABG pCO2 POC ABG pO2 ABG pO2 ABG HCO3 ABG Base Excess ABG Hemoglobin Oxyhemoglobin Sodium Potassium 3.5 L Chloride Carbon Dioxide BUN Creatinine 0.5 L Glucose 112 H POC Glucose 121 H 107 H Calcium 8.3 L Phosphorus Magnesium Direct Bilirubin AST Alkaline Phosphatase 148 H C-Reactive Protein Serum Total Protein Total Protein 5.9 L Albumin 2.4 L Prealbumin Zrajp-6-Qngvkidmj Rdbqu-2-Cwrszfjla Gamma Globulins PEP Interpretation Triglycerides Urine pH Urine Creatinine Urine Total Protein Vancomycin Trough Digoxin Crossmatch 10/26/19 10/26/19 10/26/19 06:15 12:21 17:35 WBC RBC Hgb Hct MCH MCHC RDW Plt Count Lymph % (Auto) [facility] % (Auto) Lymph # [facility] # Seg Neutrophils % Seg Neuts % (Manual) Lymphocytes % (Manual) Seg Neutrophils # Seg Neutrophils # Man Lymphocytes # (Manual) Monocytes # (Manual) POC ABG pH ABG pH POC ABG pCO2 POC ABG pO2 ABG pO2 ABG HCO3 ABG Base Excess ABG Hemoglobin Oxyhemoglobin Sodium Potassium Chloride Carbon Dioxide BUN Creatinine Glucose POC Glucose 134 H 141 H Calcium Phosphorus Magnesium Direct Bilirubin AST Alkaline Phosphatase C-Reactive Protein Serum Total Protein Total Protein Albumin Prealbumin Oodfh-4-Brpavosbt Ldqqh-9-Yydsozvvt Gamma Globulins PEP Interpretation Triglycerides 185 H Urine pH Urine Creatinine Urine Total Protein Vancomycin Trough Digoxin Crossmatch 10/26/19 10/27/19 10/27/19 Unknown 04:30 11:33 WBC RBC Hgb Hct MCH MCHC RDW Plt Count Lymph % (Auto) [facility] % (Auto) Lymph # [facility] # Seg Neutrophils % Seg Neuts % (Manual) Lymphocytes % (Manual) Seg Neutrophils # Seg Neutrophils # Man Lymphocytes # (Manual) Monocytes # (Manual) POC ABG pH ABG pH POC ABG pCO2 POC ABG pO2 ABG pO2 ABG HCO3 ABG Base Excess ABG Hemoglobin Oxyhemoglobin Sodium Potassium 3.2 L Chloride Carbon Dioxide BUN 23 H Creatinine 0.6 L Glucose 130 H POC Glucose 131 H Calcium 7.9 L Phosphorus Magnesium Direct Bilirubin AST Alkaline Phosphatase C-Reactive Protein Serum Total Protein Total Protein Albumin Prealbumin Bdssk-8-Cegpilvrp Vlftd-3-Ykncaotrx Gamma Globulins PEP Interpretation Triglycerides Urine pH 9.0 H Urine Creatinine Urine Total Protein Vancomycin Trough Digoxin Crossmatch 10/27/19 10/28/19 10/28/19 17:45 05:25 05:49 WBC RBC 2.85 L Hgb 8.3 L Hct 26.8 L MCH MCHC 31 L RDW 17.4 H Plt Count Lymph % (Auto) 8.9 L [facility] % (Auto) 14.3 H Lymph # 0.8 L [facility] # 1.3 H Seg Neutrophils % 76.5 H Seg Neuts % (Manual) Lymphocytes % (Manual) Seg Neutrophils # Seg Neutrophils # Man Lymphocytes # (Manual) Monocytes # (Manual) POC ABG pH ABG pH POC ABG pCO2 POC ABG pO2 ABG pO2 ABG HCO3 ABG Base Excess ABG Hemoglobin Oxyhemoglobin Sodium Potassium Chloride Carbon Dioxide BUN Creatinine Glucose POC Glucose 121 H 120 H Calcium Phosphorus Magnesium Direct Bilirubin AST Alkaline Phosphatase C-Reactive Protein Serum Total Protein Total Protein Albumin Prealbumin Raqac-2-Jddphskde Igzvv-5-Xbivecyod Gamma Globulins PEP Interpretation Triglycerides Urine pH Urine Creatinine Urine Total Protein Vancomycin Trough Digoxin Crossmatch 10/28/19 10/28/19 10/28/19 07:19 12:07 18:21 WBC RBC Hgb Hct MCH MCHC RDW Plt Count Lymph % (Auto) [facility] % (Auto) Lymph # [facility] # Seg Neutrophils % Seg Neuts % (Manual) Lymphocytes % (Manual) Seg Neutrophils # Seg Neutrophils # Man Lymphocytes # (Manual) Monocytes # (Manual) POC ABG pH ABG pH POC ABG pCO2 POC ABG pO2 ABG pO2 ABG HCO3 ABG Base Excess ABG Hemoglobin Oxyhemoglobin Sodium Potassium Chloride Carbon Dioxide BUN 23 H Creatinine 0.5 L Glucose 129 H POC Glucose 127 H 130 H Calcium 8.0 L Phosphorus Magnesium Direct Bilirubin AST Alkaline Phosphatase C-Reactive Protein Serum Total Protein Total Protein Albumin Prealbumin Ascau-4-Czxyztrny Zipja-5-Krujtjsvx Gamma Globulins PEP Interpretation Triglycerides Urine pH Urine Creatinine Urine Total Protein Vancomycin Trough Digoxin Crossmatch 10/28/19 10/29/19 10/29/19 23:30 05:30 05:30 WBC 11.2 H RBC 3.36 L Hgb 9.7 L Hct 29.4 L MCH MCHC RDW 16.7 H Plt Count Lymph % (Auto) [facility] % (Auto) 16.0 H Lymph # [facility] # 1.8 H Seg Neutrophils % 70.2 H Seg Neuts % (Manual) Lymphocytes % (Manual) Seg Neutrophils # 7.9 H Seg Neutrophils # Man Lymphocytes # (Manual) Monocytes # (Manual) POC ABG pH ABG pH POC ABG pCO2 POC ABG pO2 ABG pO2 ABG HCO3 ABG Base Excess ABG Hemoglobin Oxyhemoglobin Sodium Potassium Chloride Carbon Dioxide BUN 23 H Creatinine 0.5 L Glucose POC Glucose 130 H Calcium 8.3 L Phosphorus Magnesium Direct Bilirubin AST Alkaline Phosphatase C-Reactive Protein Serum Total Protein Total Protein Albumin Prealbumin Oleir-6-Rstvotuem Msxac-5-Gmggasars Gamma Globulins PEP Interpretation Triglycerides Urine pH Urine Creatinine Urine Total Protein Vancomycin Trough Digoxin Crossmatch 10/29/19 10/29/19 10/29/19 05:52 13:10 18:02 WBC RBC Hgb Hct MCH MCHC RDW Plt Count Lymph % (Auto) [facility] % (Auto) Lymph # [facility] # Seg Neutrophils % Seg Neuts % (Manual) Lymphocytes % (Manual) Seg Neutrophils # Seg Neutrophils # Man Lymphocytes # (Manual) Monocytes # (Manual) POC ABG pH ABG pH POC ABG pCO2 POC ABG pO2 ABG pO2 ABG HCO3 ABG Base Excess ABG Hemoglobin Oxyhemoglobin Sodium Potassium Chloride Carbon Dioxide BUN Creatinine Glucose POC Glucose 111 H 140 H 140 H Calcium Phosphorus Magnesium Direct Bilirubin AST Alkaline Phosphatase C-Reactive Protein Serum Total Protein Total Protein Albumin Prealbumin Hesmq-5-Rvwrocmqa Qgzyp-4-Mfnharfjr Gamma Globulins PEP Interpretation Triglycerides Urine pH Urine Creatinine Urine Total Protein Vancomycin Trough Digoxin Crossmatch 10/29/19 10/30/19 10/30/19 23:58 01:05 05:15 WBC RBC Hgb Hct MCH MCHC RDW Plt Count Lymph % (Auto) [facility] % (Auto) Lymph # [facility] # Seg Neutrophils % Seg Neuts % (Manual) Lymphocytes % (Manual) Seg Neutrophils # Seg Neutrophils # Man Lymphocytes # (Manual) Monocytes # (Manual) POC ABG pH ABG pH POC ABG pCO2 62.0 H POC ABG pO2 168 H ABG pO2 ABG HCO3 ABG Base Excess ABG Hemoglobin Oxyhemoglobin Sodium 147 H Potassium Chloride 107.8 H Carbon Dioxide BUN 26 H Creatinine 0.5 L Glucose 139 H POC Glucose 161 H Calcium Phosphorus Magnesium 2.40 H Direct Bilirubin AST Alkaline Phosphatase C-Reactive Protein Serum Total Protein Total Protein Albumin Prealbumin Shqxu-6-Vjhgcdsdh Lycsg-1-Ruakcllld Gamma Globulins PEP Interpretation Triglycerides Urine pH Urine Creatinine Urine Total Protein Vancomycin Trough Digoxin Crossmatch 10/30/19 10/30/19 10/30/19 05:15 06:32 09:44 WBC 13.8 H RBC 3.59 L Hgb 10.1 L Hct 32.4 L MCH MCHC 31 L RDW 17.4 H Plt Count Lymph % (Auto) 11.2 L [facility] % (Auto) 13.6 H Lymph # [facility] # 1.9 H Seg Neutrophils % 75.1 H Seg Neuts % (Manual) Lymphocytes % (Manual) Seg Neutrophils # 10.4 H Seg Neutrophils # Man Lymphocytes # (Manual) Monocytes # (Manual) POC ABG pH ABG pH POC ABG pCO2 51.7 H POC ABG pO2 111 H ABG pO2 ABG HCO3 ABG Base Excess ABG Hemoglobin Oxyhemoglobin Sodium Potassium Chloride Carbon Dioxide BUN Creatinine Glucose POC Glucose 141 H Calcium Phosphorus Magnesium Direct Bilirubin AST Alkaline Phosphatase C-Reactive Protein Serum Total Protein Total Protein Albumin Prealbumin Slzdz-4-Jbcjxfwki Mvpzc-4-Qqwdadxxg Gamma Globulins PEP Interpretation Triglycerides Urine pH Urine Creatinine Urine Total Protein Vancomycin Trough Digoxin Crossmatch 10/30/19 10/31/19 10/31/19 18:10 04:18 04:18 WBC 11.7 H RBC 3.11 L Hgb 9.0 L Hct 27.9 L MCH MCHC RDW 17.1 H Plt Count Lymph % (Auto) [facility] % (Auto) Lymph # [facility] # Seg Neutrophils % Seg Neuts % (Manual) Lymphocytes % (Manual) Seg Neutrophils # Seg Neutrophils # Man Lymphocytes # (Manual) Monocytes # (Manual) POC ABG pH ABG pH POC ABG pCO2 POC ABG pO2 ABG pO2 ABG HCO3 ABG Base Excess ABG Hemoglobin Oxyhemoglobin Sodium 148 H Potassium Chloride 108.7 H Carbon Dioxide BUN 37 H Creatinine 0.7 L Glucose 102 H POC Glucose 131 H Calcium Phosphorus Magnesium Direct Bilirubin AST Alkaline Phosphatase C-Reactive Protein Serum Total Protein Total Protein Albumin Prealbumin Pywvz-8-Mdgtbrbao Dmenl-4-Whiiufruo Gamma Globulins PEP Interpretation Triglycerides Urine pH Urine Creatinine Urine Total Protein Vancomycin Trough Digoxin Crossmatch 10/31/19 10/31/19 10/31/19 11:32 12:55 18:10 WBC RBC Hgb Hct MCH MCHC RDW Plt Count Lymph % (Auto) [facility] % (Auto) Lymph # [facility] # Seg Neutrophils % Seg Neuts % (Manual) Lymphocytes % (Manual) Seg Neutrophils # Seg Neutrophils # Man Lymphocytes # (Manual) Monocytes # (Manual) POC ABG pH ABG pH POC ABG pCO2 57.9 H POC ABG pO2 135 H ABG pO2 ABG HCO3 ABG Base Excess ABG Hemoglobin Oxyhemoglobin Sodium Potassium Chloride Carbon Dioxide BUN Creatinine Glucose POC Glucose 120 H Calcium Phosphorus Magnesium Direct Bilirubin AST Alkaline Phosphatase C-Reactive Protein Serum Total Protein Total Protein Albumin Prealbumin Yrnpw-1-Mlibrfwym Vbfrc-6-Xtdckpajx Gamma Globulins PEP Interpretation Triglycerides Urine pH Urine Creatinine Urine Total Protein Vancomycin Trough 41.7 H Digoxin Crossmatch 10/31/19 11/01/19 11/01/19 23:08 05:30 05:30 WBC 14.6 H RBC 3.13 L Hgb 8.9 L Hct 27.7 L MCH MCHC RDW 17.0 H Plt Count Lymph % (Auto) [facility] % (Auto) Lymph # [facility] # Seg Neutrophils % Seg Neuts % (Manual) Lymphocytes % (Manual) Seg Neutrophils # Seg Neutrophils # Man Lymphocytes # (Manual) Monocytes # (Manual) POC ABG pH ABG pH POC ABG pCO2 POC ABG pO2 ABG pO2 ABG HCO3 ABG Base Excess ABG Hemoglobin Oxyhemoglobin Sodium 149 H Potassium Chloride 109.0 H Carbon Dioxide BUN 26 H Creatinine 0.7 L Glucose 129 H POC Glucose 109 H Calcium Phosphorus Magnesium Direct Bilirubin AST Alkaline Phosphatase C-Reactive Protein Serum Total Protein Total Protein Albumin Prealbumin Pfons-3-Lododglzj Bmmff-1-Aydfipuha Gamma Globulins PEP Interpretation Triglycerides Urine pH Urine Creatinine Urine Total Protein Vancomycin Trough Digoxin Crossmatch 11/01/19 11/01/19 11/01/19 06:09 06:10 11:52 WBC RBC Hgb Hct MCH MCHC RDW Plt Count Lymph % (Auto) [facility] % (Auto) Lymph # [facility] # Seg Neutrophils % Seg Neuts % (Manual) Lymphocytes % (Manual) Seg Neutrophils # Seg Neutrophils # Man Lymphocytes # (Manual) Monocytes # (Manual) POC ABG pH ABG pH POC ABG pCO2 51.3 H POC ABG pO2 71 L ABG pO2 ABG HCO3 ABG Base Excess ABG Hemoglobin Oxyhemoglobin Sodium Potassium Chloride Carbon Dioxide BUN Creatinine Glucose POC Glucose 113 H 106 H Calcium Phosphorus Magnesium Direct Bilirubin AST Alkaline Phosphatase C-Reactive Protein Serum Total Protein Total Protein Albumin Prealbumin Yajxr-6-Cznnassen Tpyhc-2-Fkupxqwhd Gamma Globulins PEP Interpretation Triglycerides Urine pH Urine Creatinine Urine Total Protein Vancomycin Trough Digoxin Crossmatch 11/01/19 11/02/19 11/02/19 18:18 03:40 03:40 WBC RBC 2.36 L Hgb 7.2 L Hct 20.8 L D MCH MCHC 35 H RDW 16.8 H Plt Count Lymph % (Auto) [facility] % (Auto) Lymph # [facility] # Seg Neutrophils % Seg Neuts % (Manual) Lymphocytes % (Manual) Seg Neutrophils # Seg Neutrophils # Man Lymphocytes # (Manual) Monocytes # (Manual) POC ABG pH ABG pH POC ABG pCO2 POC ABG pO2 ABG pO2 ABG HCO3 ABG Base Excess ABG Hemoglobin Oxyhemoglobin Sodium 157 H D Potassium 3.0 L D Chloride 117.2 H Carbon Dioxide BUN 23 H Creatinine 0.6 L Glucose 101 H POC Glucose 120 H Calcium 6.4 L D Phosphorus Magnesium Direct Bilirubin AST Alkaline Phosphatase C-Reactive Protein Serum Total Protein Total Protein Albumin Prealbumin Llcyi-1-Gqoheqbto Lnbep-5-Mkqsmxcor Gamma Globulins PEP Interpretation Triglycerides Urine pH Urine Creatinine Urine Total Protein Vancomycin Trough Digoxin Crossmatch 11/02/19 11/02/19 11/02/19 04:48 05:30 12:43 WBC RBC Hgb Hct MCH MCHC RDW Plt Count Lymph % (Auto) [facility] % (Auto) Lymph # [facility] # Seg Neutrophils % Seg Neuts % (Manual) Lymphocytes % (Manual) Seg Neutrophils # Seg Neutrophils # Man Lymphocytes # (Manual) Monocytes # (Manual) POC ABG pH ABG pH POC ABG pCO2 50.1 H POC ABG pO2 74 L ABG pO2 ABG HCO3 ABG Base Excess ABG Hemoglobin Oxyhemoglobin Sodium 149 H D Potassium Chloride 110.0 H Carbon Dioxide BUN 23 H Creatinine 0.6 L Glucose POC Glucose 109 H Calcium 8.1 L D Phosphorus Magnesium 2.40 H Direct Bilirubin AST Alkaline Phosphatase C-Reactive Protein Serum Total Protein Total Protein Albumin Prealbumin Cmmwo-2-Rmfzaaamu Nxizj-8-Vwqbesnoi Gamma Globulins PEP Interpretation Triglycerides Urine pH Urine Creatinine Urine Total Protein Vancomycin Trough Digoxin Crossmatch 11/03/19 11/03/19 11/03/19 03:42 03:42 04:13 WBC RBC 2.93 L Hgb 8.5 L Hct 25.8 L MCH MCHC RDW 16.9 H Plt Count Lymph % (Auto) [facility] % (Auto) Lymph # [facility] # Seg Neutrophils % Seg Neuts % (Manual) Lymphocytes % (Manual) Seg Neutrophils # Seg Neutrophils # Man Lymphocytes # (Manual) Monocytes # (Manual) POC ABG pH 7.540 H ABG pH POC ABG pCO2 POC ABG pO2 51 L ABG pO2 ABG HCO3 ABG Base Excess ABG Hemoglobin Oxyhemoglobin Sodium 147 H Potassium 3.5 L D Chloride 108.6 H Carbon Dioxide BUN Creatinine 0.6 L Glucose 109 H POC Glucose Calcium 8.3 L Phosphorus Magnesium Direct Bilirubin AST Alkaline Phosphatase C-Reactive Protein Serum Total Protein Total Protein Albumin Prealbumin Bgejk-9-Qflhmugtk Ubbnf-5-Llwfgivrk Gamma Globulins PEP Interpretation Triglycerides Urine pH Urine Creatinine Urine Total Protein Vancomycin Trough Digoxin Crossmatch 11/03/19 11/03/19 11/03/19 04:28 12:04 23:02 WBC RBC Hgb Hct MCH MCHC RDW Plt Count Lymph % (Auto) [facility] % (Auto) Lymph # [facility] # Seg Neutrophils % Seg Neuts % (Manual) Lymphocytes % (Manual) Seg Neutrophils # Seg Neutrophils # Man Lymphocytes # (Manual) Monocytes # (Manual) POC ABG pH ABG pH POC ABG pCO2 45.4 H POC ABG pO2 ABG pO2 ABG HCO3 ABG Base Excess ABG Hemoglobin Oxyhemoglobin Sodium Potassium Chloride Carbon Dioxide BUN Creatinine Glucose POC Glucose 109 H 111 H Calcium Phosphorus Magnesium Direct Bilirubin AST Alkaline Phosphatase C-Reactive Protein Serum Total Protein Total Protein Albumin Prealbumin Wlaxs-1-Zbizkczaf Fpdwg-6-Rfcfodyni Gamma Globulins PEP Interpretation Triglycerides Urine pH Urine Creatinine Urine Total Protein Vancomycin Trough Digoxin Crossmatch 11/04/19 11/04/19 11/04/19 05:00 05:00 05:19 WBC RBC 2.96 L Hgb 8.6 L Hct 25.5 L MCH MCHC RDW 16.7 H Plt Count Lymph % (Auto) [facility] % (Auto) Lymph # [facility] # Seg Neutrophils % Seg Neuts % (Manual) Lymphocytes % (Manual) Seg Neutrophils # Seg Neutrophils # Man Lymphocytes # (Manual) Monocytes # (Manual) POC ABG pH ABG pH POC ABG pCO2 POC ABG pO2 ABG pO2 ABG HCO3 ABG Base Excess ABG Hemoglobin Oxyhemoglobin Sodium Potassium 3.5 L Chloride Carbon Dioxide BUN Creatinine 0.5 L Glucose 111 H POC Glucose 106 H Calcium 8.1 L Phosphorus Magnesium Direct Bilirubin AST Alkaline Phosphatase C-Reactive Protein Serum Total Protein Total Protein Albumin Prealbumin Purpi-8-Esgnmgllc Bilij-6-Pkpqsqdsg Gamma Globulins PEP Interpretation Triglycerides Urine pH Urine Creatinine Urine Total Protein Vancomycin Trough Digoxin Crossmatch 11/04/19 11/05/19 11/05/19 12:40 00:28 04:19 WBC 12.4 H RBC 2.98 L Hgb 8.5 L Hct 25.5 L MCH MCHC RDW 16.6 H Plt Count Lymph % (Auto) [facility] % (Auto) Lymph # [facility] # Seg Neutrophils % Seg Neuts % (Manual) Lymphocytes % (Manual) Seg Neutrophils # Seg Neutrophils # Man Lymphocytes # (Manual) Monocytes # (Manual) POC ABG pH ABG pH POC ABG pCO2 POC ABG pO2 ABG pO2 ABG HCO3 ABG Base Excess ABG Hemoglobin Oxyhemoglobin Sodium Potassium Chloride Carbon Dioxide BUN Creatinine Glucose POC Glucose 109 H 132 H Calcium Phosphorus Magnesium Direct Bilirubin AST Alkaline Phosphatase C-Reactive Protein Serum Total Protein Total Protein Albumin Prealbumin Mwbpl-2-Cecojodse Xmujd-6-Xcrhgqxji Gamma Globulins PEP Interpretation Triglycerides Urine pH Urine Creatinine Urine Total Protein Vancomycin Trough Digoxin Crossmatch 11/05/19 11/05/19 11/05/19 04:19 05:40 13:14 WBC RBC Hgb Hct MCH MCHC RDW Plt Count Lymph % (Auto) [facility] % (Auto) Lymph # [facility] # Seg Neutrophils % Seg Neuts % (Manual) Lymphocytes % (Manual) Seg Neutrophils # Seg Neutrophils # Man Lymphocytes # (Manual) Monocytes # (Manual) POC ABG pH ABG pH POC ABG pCO2 POC ABG pO2 ABG pO2 ABG HCO3 ABG Base Excess ABG Hemoglobin Oxyhemoglobin Sodium Potassium 3.4 L Chloride Carbon Dioxide BUN Creatinine 0.4 L Glucose 106 H POC Glucose 136 H 145 H Calcium 8.2 L Phosphorus Magnesium Direct Bilirubin AST Alkaline Phosphatase C-Reactive Protein Serum Total Protein Total Protein Albumin Prealbumin Exolb-0-Kdxgrcjcl Ryyce-2-Znstszjca Gamma Globulins PEP Interpretation Triglycerides Urine pH Urine Creatinine Urine Total Protein Vancomycin Trough Digoxin Crossmatch 11/05/19 11/05/19 11/06/19 18:29 23:42 05:00 WBC 12.2 H RBC 2.89 L Hgb 8.2 L Hct 24.9 L MCH MCHC RDW 16.4 H Plt Count Lymph % (Auto) [facility] % (Auto) Lymph # [facility] # Seg Neutrophils % Seg Neuts % (Manual) Lymphocytes % (Manual) Seg Neutrophils # Seg Neutrophils # Man Lymphocytes # (Manual) Monocytes # (Manual) POC ABG pH ABG pH POC ABG pCO2 POC ABG pO2 ABG pO2 ABG HCO3 ABG Base Excess ABG Hemoglobin Oxyhemoglobin Sodium Potassium Chloride Carbon Dioxide BUN Creatinine Glucose POC Glucose 138 H 117 H Calcium Phosphorus Magnesium Direct Bilirubin AST Alkaline Phosphatase C-Reactive Protein Serum Total Protein Total Protein Albumin Prealbumin Hszen-8-Ptnkygynb Gfgjl-0-Xkndlxgig Gamma Globulins PEP Interpretation Triglycerides Urine pH Urine Creatinine Urine Total Protein Vancomycin Trough Digoxin Crossmatch 11/06/19 11/06/19 11/06/19 05:00 05:22 17:39 WBC RBC Hgb Hct MCH MCHC RDW Plt Count Lymph % (Auto) [facility] % (Auto) Lymph # [facility] # Seg Neutrophils % Seg Neuts % (Manual) Lymphocytes % (Manual) Seg Neutrophils # Seg Neutrophils # Man Lymphocytes # (Manual) Monocytes # (Manual) POC ABG pH ABG pH POC ABG pCO2 POC ABG pO2 ABG pO2 ABG HCO3 ABG Base Excess ABG Hemoglobin Oxyhemoglobin Sodium Potassium Chloride Carbon Dioxide BUN Creatinine 0.4 L Glucose 114 H POC Glucose 121 H 110 H Calcium 8.2 L Phosphorus Magnesium Direct Bilirubin AST Alkaline Phosphatase C-Reactive Protein Serum Total Protein Total Protein Albumin Prealbumin Zbnmr-1-Jdomsisep Mtwjb-3-Mhlkqeecj Gamma Globulins PEP Interpretation Triglycerides Urine pH Urine Creatinine Urine Total Protein Vancomycin Trough Digoxin Crossmatch 11/06/19 11/07/19 11/07/19 23:29 04:06 04:06 WBC 13.0 H RBC 2.80 L Hgb 7.9 L Hct 24.0 L MCH MCHC RDW 16.5 H Plt Count Lymph % (Auto) 7.0 L [facility] % (Auto) Lymph # 0.9 L [facility] # Seg Neutrophils % 86.3 H Seg Neuts % (Manual) Lymphocytes % (Manual) Seg Neutrophils # 11.2 H Seg Neutrophils # Man Lymphocytes # (Manual) Monocytes # (Manual) POC ABG pH ABG pH POC ABG pCO2 POC ABG pO2 ABG pO2 ABG HCO3 ABG Base Excess ABG Hemoglobin Oxyhemoglobin Sodium Potassium Chloride Carbon Dioxide BUN Creatinine 0.4 L Glucose 110 H POC Glucose 113 H Calcium 8.2 L Phosphorus Magnesium Direct Bilirubin AST Alkaline Phosphatase C-Reactive Protein Serum Total Protein Total Protein Albumin Prealbumin Yqqql-9-Ukadtqhqn Obwzj-8-Jaiwfoatz Gamma Globulins PEP Interpretation Triglycerides Urine pH Urine Creatinine Urine Total Protein Vancomycin Trough Digoxin Crossmatch 11/07/19 11/07/19 11/07/19 05:43 12:47 18:19 WBC RBC Hgb Hct MCH MCHC RDW Plt Count Lymph % (Auto) [facility] % (Auto) Lymph # [facility] # Seg Neutrophils % Seg Neuts % (Manual) Lymphocytes % (Manual) Seg Neutrophils # Seg Neutrophils # Man Lymphocytes # (Manual) Monocytes # (Manual) POC ABG pH ABG pH POC ABG pCO2 POC ABG pO2 ABG pO2 ABG HCO3 ABG Base Excess ABG Hemoglobin Oxyhemoglobin Sodium Potassium Chloride Carbon Dioxide BUN Creatinine Glucose POC Glucose 114 H 120 H 112 H Calcium Phosphorus Magnesium Direct Bilirubin AST Alkaline Phosphatase C-Reactive Protein Serum Total Protein Total Protein Albumin Prealbumin Qjdwn-6-Rlwajbqzu Gvmqd-8-Nxutnbhov Gamma Globulins PEP Interpretation Triglycerides Urine pH Urine Creatinine Urine Total Protein Vancomycin Trough Digoxin Crossmatch 11/08/19 11/08/19 11/08/19 03:45 03:45 11:43 WBC 12.7 H RBC 2.82 L Hgb 7.8 L Hct 24.4 L MCH MCHC RDW 16.5 H Plt Count Lymph % (Auto) 9.4 L [facility] % (Auto) Lymph # [facility] # 0.9 H Seg Neutrophils % 83.0 H Seg Neuts % (Manual) Lymphocytes % (Manual) Seg Neutrophils # 10.6 H Seg Neutrophils # Man Lymphocytes # (Manual) Monocytes # (Manual) POC ABG pH ABG pH POC ABG pCO2 POC ABG pO2 ABG pO2 ABG HCO3 ABG Base Excess ABG Hemoglobin Oxyhemoglobin Sodium Potassium Chloride Carbon Dioxide BUN Creatinine 0.4 L Glucose 107 H POC Glucose 118 H Calcium Phosphorus Magnesium Direct Bilirubin AST Alkaline Phosphatase C-Reactive Protein Serum Total Protein Total Protein Albumin Prealbumin Vfogp-9-Mvhmqmdix Oxqvz-1-Yedjxcijh Gamma Globulins PEP Interpretation Triglycerides Urine pH Urine Creatinine Urine Total Protein Vancomycin Trough Digoxin Crossmatch 11/08/19 11/09/19 11/09/19 23:45 12:41 12:56 WBC RBC Hgb Hct MCH MCHC RDW Plt Count Lymph % (Auto) [facility] % (Auto) Lymph # [facility] # Seg Neutrophils % Seg Neuts % (Manual) Lymphocytes % (Manual) Seg Neutrophils # Seg Neutrophils # Man Lymphocytes # (Manual) Monocytes # (Manual) POC ABG pH ABG pH POC ABG pCO2 POC ABG pO2 ABG pO2 ABG HCO3 ABG Base Excess ABG Hemoglobin Oxyhemoglobin Sodium Potassium Chloride Carbon Dioxide BUN Creatinine Glucose POC Glucose 113 H 107 H 122 H Calcium Phosphorus Magnesium Direct Bilirubin AST Alkaline Phosphatase C-Reactive Protein Serum Total Protein Total Protein Albumin Prealbumin Hstci-4-Oaaxstqdw Qjboz-8-Ekcudtlwb Gamma Globulins PEP Interpretation Triglycerides Urine pH Urine Creatinine Urine Total Protein Vancomycin Trough Digoxin Crossmatch 11/10/19 11/10/19 11/11/19 05:12 12:20 12:13 WBC RBC Hgb Hct MCH MCHC RDW Plt Count Lymph % (Auto) [facility] % (Auto) Lymph # [facility] # Seg Neutrophils % Seg Neuts % (Manual) Lymphocytes % (Manual) Seg Neutrophils # Seg Neutrophils # Man Lymphocytes # (Manual) Monocytes # (Manual) POC ABG pH ABG pH POC ABG pCO2 POC ABG pO2 ABG pO2 ABG HCO3 ABG Base Excess ABG Hemoglobin Oxyhemoglobin Sodium Potassium Chloride Carbon Dioxide BUN Creatinine Glucose POC Glucose 127 H 125 H 107 H Calcium Phosphorus Magnesium Direct Bilirubin AST Alkaline Phosphatase C-Reactive Protein Serum Total Protein Total Protein Albumin Prealbumin Nkotz-6-Wviucrqwv Cqfnm-7-Abfplwskh Gamma Globulins PEP Interpretation Triglycerides Urine pH Urine Creatinine Urine Total Protein Vancomycin Trough Digoxin Crossmatch 11/11/19 11/11/19 11/12/19 17:29 22:20 06:00 WBC RBC 2.77 L Hgb 7.8 L Hct 23.4 L MCH MCHC RDW 16.6 H Plt Count Lymph % (Auto) 11.9 L [facility] % (Auto) 8.9 H Lymph # [facility] # 0.9 H Seg Neutrophils % 78.2 H Seg Neuts % (Manual) Lymphocytes % (Manual) Seg Neutrophils # 8.2 H Seg Neutrophils # Man Lymphocytes # (Manual) Monocytes # (Manual) POC ABG pH ABG pH POC ABG pCO2 POC ABG pO2 ABG pO2 ABG HCO3 ABG Base Excess ABG Hemoglobin Oxyhemoglobin Sodium Potassium Chloride Carbon Dioxide BUN Creatinine Glucose POC Glucose 120 H 109 H Calcium Phosphorus Magnesium Direct Bilirubin AST Alkaline Phosphatase C-Reactive Protein Serum Total Protein Total Protein Albumin Prealbumin Xqxrf-5-Ncblblumu Adyve-3-Gajblhtmt Gamma Globulins PEP Interpretation Triglycerides Urine pH Urine Creatinine Urine Total Protein Vancomycin Trough Digoxin Crossmatch 11/12/19 11/12/19 11/12/19 07:52 11:58 23:44 WBC RBC Hgb Hct MCH MCHC RDW Plt Count Lymph % (Auto) [facility] % (Auto) Lymph # [facility] # Seg Neutrophils % Seg Neuts % (Manual) Lymphocytes % (Manual) Seg Neutrophils # Seg Neutrophils # Man Lymphocytes # (Manual) Monocytes # (Manual) POC ABG pH ABG pH POC ABG pCO2 POC ABG pO2 ABG pO2 ABG HCO3 ABG Base Excess ABG Hemoglobin Oxyhemoglobin Sodium Potassium Chloride Carbon Dioxide BUN Creatinine Glucose POC Glucose 120 H 140 H 116 H Calcium Phosphorus Magnesium Direct Bilirubin AST Alkaline Phosphatase C-Reactive Protein Serum Total Protein Total Protein Albumin Prealbumin Lpnwr-6-Pqkielmwk Iryxp-2-Kjssunutv Gamma Globulins PEP Interpretation Triglycerides Urine pH Urine Creatinine Urine Total Protein Vancomycin Trough Digoxin Crossmatch 11/13/19 11/13/19 11/13/19 04:33 04:33 13:43 WBC 11.2 H RBC 2.90 L Hgb 8.1 L Hct 24.5 L MCH MCHC RDW 16.5 H Plt Count Lymph % (Auto) 10.1 L [facility] % (Auto) 7.6 H Lymph # 1.1 L [facility] # 0.9 H Seg Neutrophils % 81.1 H Seg Neuts % (Manual) Lymphocytes % (Manual) Seg Neutrophils # 9.1 H Seg Neutrophils # Man Lymphocytes # (Manual) Monocytes # (Manual) POC ABG pH ABG pH POC ABG pCO2 POC ABG pO2 ABG pO2 ABG HCO3 ABG Base Excess ABG Hemoglobin Oxyhemoglobin Sodium 135 L Potassium Chloride 91.9 L Carbon Dioxide BUN Creatinine 0.6 L Glucose POC Glucose 122 H Calcium Phosphorus Magnesium Direct Bilirubin AST Alkaline Phosphatase C-Reactive Protein Serum Total Protein Total Protein Albumin Prealbumin Uoesa-9-Dynwjrwqp Aesbh-7-Uhfkxnjsf Gamma Globulins PEP Interpretation Triglycerides Urine pH Urine Creatinine Urine Total Protein Vancomycin Trough Digoxin Crossmatch 11/13/19 11/14/19 11/15/19 17:57 12:35 07:10 WBC 14.8 H RBC 2.89 L Hgb 7.8 L Hct 24.2 L MCH 27 L MCHC RDW 16.9 H Plt Count Lymph % (Auto) [facility] % (Auto) Lymph # [facility] # Seg Neutrophils % Seg Neuts % (Manual) Lymphocytes % (Manual) Seg Neutrophils # Seg Neutrophils # Man Lymphocytes # (Manual) Monocytes # (Manual) POC ABG pH ABG pH POC ABG pCO2 POC ABG pO2 ABG pO2 ABG HCO3 ABG Base Excess ABG Hemoglobin Oxyhemoglobin Sodium Potassium Chloride Carbon Dioxide BUN Creatinine Glucose POC Glucose 127 H 148 H Calcium Phosphorus Magnesium Direct Bilirubin AST Alkaline Phosphatase C-Reactive Protein Serum Total Protein Total Protein Albumin Prealbumin Bseis-5-Fgfnvohws Glzwc-5-Sqavydnls Gamma Globulins PEP Interpretation Triglycerides Urine pH Urine Creatinine Urine Total Protein Vancomycin Trough Digoxin Crossmatch 11/15/19 11/15/19 11/16/19 07:10 20:16 10:26 WBC 14.4 H RBC 2.79 L Hgb 7.6 L Hct 23.5 L MCH 27 L MCHC RDW 17.0 H Plt Count Lymph % (Auto) [facility] % (Auto) Lymph # [facility] # Seg Neutrophils % Seg Neuts % (Manual) Lymphocytes % (Manual) Seg Neutrophils # Seg Neutrophils # Man Lymphocytes # (Manual) Monocytes # (Manual) POC ABG pH ABG pH POC ABG pCO2 POC ABG pO2 ABG pO2 ABG HCO3 ABG Base Excess ABG Hemoglobin Oxyhemoglobin Sodium 133 L 136 L Potassium 3.5 L Chloride 93.7 L 97.4 L Carbon Dioxide BUN Creatinine 0.6 L 0.6 L Glucose 130 H POC Glucose Calcium Phosphorus Magnesium Direct Bilirubin AST Alkaline Phosphatase C-Reactive Protein Serum Total Protein Total Protein Albumin Prealbumin Xyazf-0-Vapzuwbhh Ocvih-6-Ivgurwajm Gamma Globulins PEP Interpretation Triglycerides Urine pH Urine Creatinine Urine Total Protein Vancomycin Trough Digoxin Crossmatch 11/16/19 11/17/19 11/17/19 13:01 00:40 07:22 WBC 14.0 H RBC 2.71 L Hgb 7.4 L Hct 22.8 L MCH 27 L MCHC RDW 17.2 H Plt Count Lymph % (Auto) [facility] % (Auto) Lymph # [facility] # Seg Neutrophils % Seg Neuts % (Manual) Lymphocytes % (Manual) Seg Neutrophils # Seg Neutrophils # Man Lymphocytes # (Manual) Monocytes # (Manual) POC ABG pH ABG pH POC ABG pCO2 POC ABG pO2 ABG pO2 ABG HCO3 ABG Base Excess ABG Hemoglobin Oxyhemoglobin Sodium Potassium Chloride Carbon Dioxide BUN Creatinine Glucose POC Glucose 117 H 124 H Calcium Phosphorus Magnesium Direct Bilirubin AST Alkaline Phosphatase C-Reactive Protein Serum Total Protein Total Protein Albumin Prealbumin Yvoii-9-Lkthuxokm Ltxfr-0-Lsvohlwfg Gamma Globulins PEP Interpretation Triglycerides Urine pH Urine Creatinine Urine Total Protein Vancomycin Trough Digoxin Crossmatch 11/17/19 11/17/19 07:22 12:00 WBC RBC Hgb Hct MCH MCHC RDW Plt Count Lymph % (Auto) [facility] % (Auto) Lymph # [facility] # Seg Neutrophils % Seg Neuts % (Manual) Lymphocytes % (Manual) Seg Neutrophils # Seg Neutrophils # Man Lymphocytes # (Manual) Monocytes # (Manual) POC ABG pH ABG pH POC ABG pCO2 POC ABG pO2 ABG pO2 ABG HCO3 ABG Base Excess ABG Hemoglobin Oxyhemoglobin Sodium 136 L Potassium Chloride 96.1 L Carbon Dioxide BUN 7 L Creatinine 0.5 L Glucose POC Glucose 130 H Calcium Phosphorus Magnesium Direct Bilirubin AST Alkaline Phosphatase C-Reactive Protein Serum Total Protein Total Protein Albumin Prealbumin Cnaip-2-Qoszgagix Wwqyi-1-Ikooyejeb Gamma Globulins PEP Interpretation Triglycerides Urine pH Urine Creatinine Urine Total Protein Vancomycin Trough Digoxin Crossmatch
[2019-11-17] MEDS: diphenhydrAMINE 25 MG CAP PO PRN (20:58)
[2019-11-17] MEDS: ENOXAPARIN 40 MG/0.4 ML INJ SUB-Q SCH (21:00)
[2019-11-18] MEDS: INSULIN LISPRO 100 UNIT/ML SUB-Q SCH ×4 (01:11→17:57)
[2019-11-18] MEDS: IPRATROPIUM/ALBUTEROL SULFATE 3 ML AMPUL.NEB IH SCH ×4 (03:07→20:58)
[2019-11-18] MEDS: HYDROcodone/APAP 7.5-325MG-15ML ORAL LIQD FEEDTUBE PRN (04:22)
[2019-11-18] MEDS: METOPROLOL TARTRATE 50 MG TAB PO SCH ×3 (05:27→22:05)
[2019-11-18] MEDS: LISINOPRIL 20 MG TAB PO SCH (09:49)
[2019-11-18] MEDS: PANTOPRAZOLE 40 MG INJ IV SCH (09:50)
[2019-11-18] MEDS: AMIODARONE 200 MG TAB PO SCH (09:50)
[2019-11-18] MEDS: CITALOPRAM 20 MG TAB PO SCH (09:50)
[2019-11-18] MEDS ORDERED: LANSOPRAZOLE 30 MG SOLUTAB FEEDTUBE SCH (10:00)
[2019-11-18] MEDS: ACETAMINOPHEN 325 MG/10.15 ML ORAL LIQD UNIT DOSE FEEDTUBE PRN ×2 (10:06→15:28)
[2019-11-18] MEDS: BUDESONIDE 0.5 MG/2 ML NEBU IH SCH ×2 (10:14→20:58)
[2019-11-18] MEDS: ARFORMOTEROL 15 MCG/2 ML NEBU IH SCH ×2 (10:14→20:58)
--- NOTE | 2019-11-18 10:50 | XRay Report ---
CHEST 1 VIEW INDICATION: shortness of breath. COMPARISON: 11/12/2019. FINDINGS: Support devices: PICC line unchanged. Heart: Within normal limits. Lungs/Pleura: Mild atelectasis right base. Left base remains clear. Additional findings: None. IMPRESSION: Mild atelectasis right Signer Name: Malcom Díaz MD Signed: 11/18/2019 10:45 AM Workstation Name: [id number]
--- NOTE | 2019-11-18 12:39 | Progress Note ---
Assessment and Plan Assessment and plan: Sepsis, improved. Completed Abx per ID. Enterococcus on cultures. . Dehiscence of closure of fascia s/p ex lap with closure of abdominal wall and wound vac placement (10/05) - POD#37; s/p Re-exploration, washout, transection of colon, Abthera placement - 10/13 - POD#29; s/p abd washout, partial omentectomy, partial colectomy with colostomy - 10/16 POD#26. s/p abd washout, feeding tube placement, AbThera placement - 10/19 - POD#23; Abdominal washout and closure - 10/22 - POD#20 Acute Respiratory failure with hypoxia -Extubated 10/25/19 -Re-intubated 10/30 -Patient self extubated morning of 11/04, now on Oxygen by PR -Multifactorial secondary to pneumonia, pneumothorax and COPD Sepsis Completed Merrem, Micafungin ID Physician following Left pneumothorax s/p chest tube placed 10/30 Resolved. Left lower lobe pneumonia -CTA chest showed left lower lobe consolidation with pleural effusion COPD -Stable -cont neb tx GUILLERMO on CKD -due to ATN due to sepsis -Resolved. -No hydronephrosis on CT Severe Metabolic acidosis -Improved Acute Toxic Metabolic Encephalopathy/Delirium Tremens. Resolved. -Continue CIWA protocol due to hx of ETOH abuse, 6packs a day -Head CT scan negative for acute findings Acute blood loss anemia -H/H stable -Continue to monitor H&H and transfuse for hb<7 SVT, Atrial fib/flutter with RVR -treated with adenosine x1 -off amiodarone and cardizem drip. On oral amiodarone -HR currently controlled -Cardiology following Hx of Hypertension -Stable Hyperlipidemia -stable Atypical chest pain -probably secondary to pneumonitis -troponin levels neg Hx of [place]/CAD -s/p PCI of the circumflex and second vessel POBA of the distal LAD occlusion. Left ventricle fraction of 45-50%. Morbid obesity with BMI of 43.4 -Lifestyle modification recommended Moderate Protein calorie malnutrition -Nutrition following Tobacco abuse -Cessation recommended Morbid obesity with BMI of 43.4 -Lifestyle modification recommended DVT and GI ppx: Lovenox/PPI He feels better. Plan is to discharge to acute rehab when accepted History Interval history: feels better, Still has gen weakness Tolerating diet shortness of breath Hospitalist Physical - Physical exam Narrative exam: Gen: Not in acute distress, On Oxygen by PR HEENT: Normocephalic, atraumatic Neck: supple, no JVD Heart: S1 and S2 reg, no murmurs, rubs or gallop Lungs: Chest tube on left, Abd: soft, NT, ostomy, wound vac, left drain Ext: No edema, no clubbing no cyanosis Neuro: Awake,alert , oriented X 3, moves all ext - Constitutional Vitals: Temp Pulse Resp BP Pulse Ox 97.3 F L 91 H 18 116/56 95 11/18/19 12:05 11/18/19 12:05 11/18/19 10:00 11/18/19 12:05 11/18/19 12:05 General appearance: Present: no acute distress, obese Results - Labs CBC & Chem 7: 11/17/19 07:22 11/17/19 07:22 Labs: Laboratory Last Values WBC 14.0 K/mm3 (4.5-11.0) H 11/17/19 07:22 RBC 2.71 M/mm3 (3.65-5.03) L 11/17/19 07:22 Hgb 7.4 gm/dl (11.8-15.2) L 11/17/19 07:22 Hct 22.8 % (35.5-45.6) L 11/17/19 07:22 MCV 84 fl (84-94) 11/17/19 07:22 MCH 27 pg (28-32) L 11/17/19 07:22 MCHC 33 % (32-34) 11/17/19 07:22 RDW 17.2 % (13.2-15.2) H 11/17/19 07:22 Plt Count 326 K/mm3 (140-440) 11/17/19 07:22 Lymph % (Auto) 10.1 % (13.4-35.0) L 11/13/19 04:33 [place] % (Auto) 7.6 % (0.0-7.3) H 11/13/19 04:33 Eos % (Auto) 0.7 % (0.0-4.3) 11/13/19 04:33 Baso % (Auto) 0.5 % (0.0-1.8) 11/13/19 04:33 Lymph # 1.1 K/mm3 (1.2-5.4) L 11/13/19 04:33 [place] # 0.9 K/mm3 (0.0-0.8) H 11/13/19 04:33 Eos # 0.1 K/mm3 (0.0-0.4) 11/13/19 04:33 Baso # 0.1 K/mm3 (0.0-0.1) 11/13/19 04:33 Add Manual Diff Complete 10/16/19 09:20 Total Counted 100 10/16/19 09:20 Seg Neutrophils % 81.1 % (40.0-70.0) H 11/13/19 04:33 Seg Neuts % (Manual) 79.0 % (40.0-70.0) H 10/16/19 09:20 Band Neutrophils % 12.0 % 10/16/19 09:20 Lymphocytes % (Manual) 4.0 % (13.4-35.0) L 10/16/19 09:20 Reactive Lymphs % (Man) 0 % 10/16/19 09:20 Monocytes % (Manual) 2.0 % (0.0-7.3) 10/16/19 09:20 Eosinophils % (Manual) 0 % (0.0-4.3) 10/16/19 09:20 Basophils % (Manual) 0 % (0.0-1.8) 10/16/19 09:20 Metamyelocytes % 2.0 % 10/16/19 09:20 Myelocytes % 1.0 % 10/16/19 09:20 Promyelocytes % 0 % 10/16/19 09:20 Blast Cells % 0 % 10/16/19 09:20 Nucleated RBC % Not Reportable 10/16/19 09:20 Seg Neutrophils # 9.1 K/mm3 (1.8-7.7) H 11/13/19 04:33 Seg Neutrophils # Man 11.5 K/mm3 (1.8-7.7) H 10/16/19 09:20 Band Neutrophils # 1.8 K/mm3 10/16/19 09:20 Lymphocytes # (Manual) 0.6 K/mm3 (1.2-5.4) L 10/16/19 09:20 Abs React Lymphs (Man) 0.0 K/mm3 10/16/19 09:20 Monocytes # (Manual) 0.3 K/mm3 (0.0-0.8) 10/16/19 09:20 Eosinophils # (Manual) 0.0 K/mm3 (0.0-0.4) 10/16/19 09:20 Basophils # (Manual) 0.0 K/mm3 (0.0-0.1) 10/16/19 09:20 Metamyelocytes # 0.3 K/mm3 10/16/19 09:20 Myelocytes # 0.1 K/mm3 10/16/19 09:20 Promyelocytes # 0.0 K/mm3 10/16/19 09:20 Blast Cells # 0.0 K/mm3 10/16/19 09:20 WBC Morphology Not Reportable 10/16/19 09:20 Hypersegmented Neuts Not Reportable 10/16/19 09:20 Hyposegmented Neuts Not Reportable 10/16/19 09:20 Hypogranular Neuts Not Reportable 10/16/19 09:20 Smudge Cells Not Reportable 10/16/19 09:20 Toxic Granulation Not Reportable 10/16/19 09:20 Toxic Vacuolation Not Reportable 10/16/19 09:20 Dohle Bodies Not Reportable 10/16/19 09:20 Pelger-Huet Anomaly Not Reportable 10/16/19 09:20 Andres Rods Not Reportable 10/16/19 09:20 Platelet Estimate Consistent w auto 10/16/19 09:20 Clumped Platelets Not Reportable 10/16/19 09:20 Plt Clumps, EDTA Not Reportable 10/16/19 09:20 Large Platelets Not Reportable 10/16/19 09:20 Giant Platelets Not Reportable 10/16/19 09:20 Platelet Satelliting Not Reportable 10/16/19 09:20 Plt Morphology Comment Not Reportable 10/16/19 09:20 RBC Morphology Not Reportable 10/16/19 09:20 Dimorphic RBCs Not Reportable 10/16/19 09:20 Polychromasia Few 10/16/19 09:20 Hypochromasia Few 10/16/19 09:20 Poikilocytosis Not Reportable 10/16/19 09:20 Anisocytosis Not Reportable 10/16/19 09:20 Microcytosis Not Reportable 10/16/19 09:20 Macrocytosis Not Reportable 10/16/19 09:20 Spherocytes Not Reportable 10/16/19 09:20 Pappenheimer Bodies Not Reportable 10/16/19 09:20 Sickle Cells Not Reportable 10/16/19 09:20 Target Cells Few 10/16/19 09:20 Tear Drop Cells Not Reportable 10/16/19 09:20 Ovalocytes Not Reportable 10/16/19 09:20 Helmet Cells Not Reportable 10/16/19 09:20 [place] Bodies Not Reportable 10/16/19 09:20 Barney Rings Not Reportable 10/16/19 09:20 [place] Cells Not Reportable 10/16/19 09:20 Bite Cells Not Reportable 10/16/19 09:20 Crenated Cell Not Reportable 10/16/19 09:20 Elliptocytes Not Reportable 10/16/19 09:20 Acanthocytes (Spur) Not Reportable 10/16/19 09:20 Rouleaux Not Reportable 10/16/19 09:20 Hemoglobin C Crystals Not Reportable 10/16/19 09:20 Schistocytes Not Reportable 10/16/19 09:20 Malaria parasites Not Reportable 10/16/19 09:20 Toni Bodies Not Reportable 10/16/19 09:20 Hem Pathologist Commnt No 10/16/19 09:20 POC ABG pH 7.422 (7.35-7.45) 11/03/19 04:28 ABG pH 7.390 pH Units (7.350-7.450) 10/23/19 04:47 POC ABG pCO2 45.4 (35-45) H 11/03/19 04:28 ABG pCO2 48.4 mm Hg 10/23/19 04:47 POC ABG pO2 83 (80-105) 11/03/19 04:28 ABG pO2 68.9 mm Hg (80.0-90.0) L 10/23/19 04:47 POC ABG HCO3 29.6 (22-26 mml/L) 11/03/19 04:28 ABG HCO3 28.7 mmol/L (20.0-26.0) H 10/23/19 04:47 POC ABG Total CO2 31 (23-27mmol/L) 11/03/19 04:28 POC ABG O2 Sat 96 11/03/19 04:28 ABG O2 Saturation 96.6 % (95.0-99.0) 10/23/19 04:47 ABG O2 Content 8.8 (0.0-44) 10/23/19 04:47 POC ABG Base Excess 5 ((-2) - (+3)mmol/L) 11/03/19 04:28 ABG Base Excess 3.4 mmol/L (-2.0-3.0) H 10/23/19 04:47 ABG Hemoglobin 6.6 gm/dl (14.0-18.0) L 10/23/19 04:47 ABG Carboxyhemoglobin 2.1 % (0.0-5.0) 10/23/19 04:47 ABG Methemoglobin 0.5 % (0.0-1.5) 10/23/19 04:47 Oxyhemoglobin 94.1 % (95.0-99.0) L 10/23/19 04:47 FiO2 40 % 11/03/19 04:28 Sodium 136 mmol/L (137-145) L 11/17/19 07:22 Potassium 3.7 mmol/L (3.6-5.0) 11/17/19 07:22 Chloride 96.1 mmol/L (98-107) L 11/17/19 07:22 Carbon Dioxide 23 mmol/L (22-30) 11/17/19 07:22 Anion Gap 21 mmol/L 11/17/19 07:22 BUN 7 mg/dL (9-20) L 11/17/19 07:22 Creatinine 0.5 mg/dL (0.8-1.5) L 11/17/19 07:22 Estimated GFR > 60 ml/min 11/17/19 07:22 BUN/Creatinine Ratio 14 % 11/17/19 07:22 Glucose 81 mg/dL (75-100) 11/17/19 07:22 POC Glucose 124 (70-105) H 11/18/19 12:12 Hemoglobin A1c 5.7 % (4-6) 10/06/19 05:36 Lactic Acid 1.10 mmol/L (0.7-2.0) 10/13/19 04:20 Calcium 8.9 mg/dL (8.4-10.2) 11/17/19 07:22 Ionized Calcium 5.2 mg/dL (4.8-5.6) 10/18/19 07:41 Phosphorus 2.70 mg/dL (2.5-4.5) 11/02/19 12:43 Magnesium 2.40 mg/dL (1.7-2.3) H 11/02/19 12:43 Total Bilirubin 1.10 mg/dL (0.1-1.2) 10/26/19 06:15 Direct Bilirubin 0.7 mg/dL (0-0.2) H 10/23/19 10:44 Indirect Bilirubin 0.1 mg/dL 10/23/19 10:44 AST 23 units/L (5-40) 10/26/19 06:15 ALT 13 units/L (7-56) 10/26/19 06:15 Alkaline Phosphatase 148 units/L (35-129) H 10/26/19 06:15 Ammonia 49.0 umol/L (25-60) 10/13/19 04:20 Troponin T < 0.010 ng/mL (0.00-0.029) 10/09/19 17:23 C-Reactive Protein 30.60 mg/dL (0.00-1.30) H 10/15/19 04:32 Serum Total Protein 5.2 g/dL (6.1-8.1) L 10/11/19 09:00 Total Protein 5.9 g/dL (6.3-8.2) L 10/26/19 06:15 Albumin 2.4 g/dL (3.9-5) L 10/26/19 06:15 Albumin/Globulin Ratio 0.7 % 10/26/19 06:15 Prealbumin 0.030 g/L (0.200-0.400) L 10/15/19 04:32 Apvse-[id number] See scanned result 10/11/19 Unknown Ycuyb-[id number] See scanned result 10/11/19 Unknown Beta Globulins See scanned result 10/11/19 Unknown Gamma Globulins See scanned result 10/11/19 Unknown Abnorm Protein Band 1 see below 10/11/19 09:00 PEP Interpretation See scanned result 10/11/19 Unknown Triglycerides 185 mg/dL (2-149) H 10/26/19 06:15 Urine Color Yellow (Yellow) 10/26/19 Unknown Urine Turbidity Clear (Clear) 10/26/19 Unknown Urine pH 9.0 (5.0-7.0) H 10/26/19 Unknown Ur Specific [place] 1.011 (1.003-1.030) 10/26/19 Unknown Urine Protein 30 mg/dl mg/dL (Negative) 10/26/19 Unknown Urine Glucose (UA) Neg mg/dL (Negative) 10/26/19 Unknown Urine Ketones Neg mg/dL (Negative) 10/26/19 Unknown Urine Blood Neg (Negative) 10/26/19 Unknown Urine Nitrite Neg (Negative) 10/26/19 Unknown Urine Bilirubin Neg (Negative) 10/26/19 Unknown Urine Urobilinogen < 2.0 mg/dL (<2.0) 10/26/19 Unknown Ur Leukocyte Esterase Neg (Negative) 10/26/19 Unknown Urine WBC (Auto) 1.0 /HPF (0.0-6.0) 10/26/19 Unknown Urine RBC (Auto) 1.0 /HPF (0.0-6.0) 10/26/19 Unknown Urine Bacteria (Auto) 1+ /HPF (Negative) 10/11/19 06:23 Urine Mucus Few /HPF 10/26/19 Unknown Urine Eosinophils None seen (None Seen) 10/11/19 06:23 Ur Random Creatinine See scanned result 10/11/19 Unknown U Random Total Protein See scanned result 10/11/19 Unknown Urine Creatinine 116.8 mg/dL (0.1-20.0) H 10/11/19 06:23 Urine Creatinine 118.2 mg/dL (0.1-20.0) H 10/11/19 06:23 Protein/Creatinin Ratio See scanned result 10/11/19 Unknown Urine Sodium 14 mmol/L 10/11/19 06:23 Urine Total Protein 104 mg/dL (5-11.8) H 10/11/19 06:23 Urine Total Protein 105 mg/dL (5-11.8) H 10/11/19 06:23 U Abnormal Prot Band 1 See scanned result 10/11/19 Unknown U Abnormal Prot Band 2 See scanned result 10/11/19 Unknown U Abnormal Prot Band 3 See scanned result 10/11/19 Unknown Vancomycin Trough 5.7 ug/mL (5.0-20.0) 11/05/19 09:00 Random Vancomycin 9.6 ug/mL (0-40.0) 11/03/19 03:42 Digoxin 0.7 ng/mL (0.9-2.0) L 10/19/19 04:21 Blood Type A POSITIVE 10/23/19 11:50 Antibody Screen Negative 10/23/19 11:50 Crossmatch See Detail 10/23/19 11:50 Active Medications - Current Medications Current Medications: Generic Name Dose Route Start Last Admin Trade Name Freq PRN Reason Stop Dose Admin Acetaminophen 650 mg 10/25/19 13:00 11/18/19 10:06 Tylenol FEEDTUBE 650 mg Q4H PRN Administration Fever >100.5 Acetaminophen/Hydrocodone Bitart 7.5 mg 11/07/19 16:57 11/18/19 04:22 Hydrocodone/Apap 7.5-325 FEEDTUBE 7.5 mg Q4H PRN Administration Pain, Moderate (4-6) Albuterol/Ipratropium 1 ampul 10/06/19 02:00 11/18/19 10:15 Duoneb *Not For Prn Use* IH 1 ampul Q6HRT VERÓNICA Administration Amiodarone HCl 200 mg 10/23/19 13:00 11/18/19 09:50 Cordarone PO 200 mg QDAY VERÓNICA Administration Lipase/Protease/Amylase 1 each 10/20/19 10:37 Pancreazanamika Moreno 10,500 Unit FEEDTUBE PRN PRN For Clogged Feeding Tube Arformoterol Tartrate 15 mcg 10/06/19 08:30 11/18/19 10:14 Brovana Nebu IH 15 mcg Q12HRT VERÓNICA Administration Budesonide 0.5 mg 10/07/19 12:20 11/18/19 10:14 Pulmicort IH 0.5 mg Q12HRT VERÓNICA Administration Citalopram Hydrobromide 20 mg 10/27/19 12:00 11/18/19 09:50 Celexa PO 20 mg DAILY VERÓNICA Administration Diphenhydramine HCl 25 mg 11/17/19 20:15 11/17/19 20:58 Benadryl PO 25 mg Q6H PRN Administration Itching Enoxaparin Sodium 40 mg 11/05/19 22:00 11/17/19 21:00 Enoxaparin SUB-Q 40 mg QDAY@2200 VERÓNICA Administration Haloperidol Lactate 5 mg 10/25/19 18:22 11/12/19 03:33 Haldol IV 5 mg Q6H PRN Administration Agitation Hydralazine HCl 10 mg 10/28/19 14:09 11/02/19 15:34 Apresoline IV 10 mg Q4HR PRN Administration Hypertension Hydromorphone HCl 2 mg 10/25/19 12:35 11/17/19 17:34 Dilaudid IV 2 mg Q4H PRN Administration Pain , Severe (7-10) Insulin Human Lispro 0 unit 10/14/19 12:00 11/18/19 06:16 Humalog SUB-Q Not Given Q6HR [facility] Protocol Lisinopril 20 mg 10/30/19 10:00 11/18/19 09:49 Zestril PO Not Given QDAY [facility] Metoprolol Tartrate 2.5 mg 10/15/19 15:34 11/01/19 18:00 Metoprolol IV 2.5 mg Q4HR PRN Administration HR >130 Metoprolol Tartrate 50 mg 10/25/19 14:00 11/18/19 05:27 Metoprolol PO Not Given Q8HR [facility] Multi-Ingred Cream/Lotion/Oil/Oint 1 applic 10/14/19 02:19 Artificial Tears Ophth Oint OU Q4HR PRN Dry Eye(s) Pantoprazole Sodium 40 mg 11/18/19 10:00 11/18/19 09:50 Protonix IV 40 mg QDAY VERÓNICA Administration Simple Syrup 15 ml 10/20/19 10:37 Simple Syrup FEEDTUBE PRN PRN Hypoglycemia Simple Syrup 30 ml 10/20/19 10:37 Simple Syrup FEEDTUBE PRN PRN Hypoglycemia Sodium Bicarbonate 325 mg 10/20/19 10:37 11/14/19 05:59 Sodium Bicarbonate FEEDTUBE 325 mg PRN PRN Administration For Clogged Feeding Tube Sodium Chloride 10 ml 11/07/19 19:32 11/16/19 21:19 Sodium Chloride Flush Syringe 10 Ml IV 10 ml PRN PRN Administration LINE FLUSH Zolpidem Tartrate 5 mg 11/10/19 21:00 11/11/19 03:30 Ambien FEEDTUBE 5 mg QHS PRN Administration Sleep Nutrition/Malnutrition Assess - Dietary Evaluation Nutrition/Malnutrition Findings: Nutrition Notes Start: 10/08/19 11:3 6 Freq: Status: Active Protocol: Document 11/15/19 11:31 LP (Rec: 11/15/19 11:42 LP [id number]) Nutrition Notes Initial or Follow up Reassessment Current Diagnosis Acute Kidney Injury,COPD, Hypertension Other Pertinent Diagnosis intra-abdominal infection, disruption of bowel anastomosis, LE edema Current Diet Regular Labs/Tests Reviewed Pertinent Medications Reviewed Height 6 ft Weight 145 kg [place] Body Weight (kg) 80.90 BMI 43.3 Weight Status Morbidly Obese Subjective/Other Information Ostomy is functioning. TF on hold due to clogged j tube. Pt noted with eating 75-100% of meals. Pt sleeping at time of visit. Percent of energy/protein needs met: 86%/50% Burn Absent Trauma Absent GI Symptoms None Current % PO Good (75-100%) Minimum of two criteria No Fluid Accumulation Mild (non-severe) #2 Nutrition Diagnosis Inadequate oral intake As Evidenced by Signs and Symptoms Diet advanced and noted consuming 75-100% of meals Diagnosis Progress(for reassessment Improved documentation) #1 Nutrition Diagnosis Increased nutrient needs ( specify in comment below) Diagnosis Progress(for reassessment Continues documentation) Is patient on ventilator? No Is Patient Ambulatory and/or Out of Bed No REE-([place]-confined to bed) 2785.236 Kcal/Kg value to use for calculation 14 Approximate Energy Requirements Using 2030 kcal/Kg Calculation Used for Recommendations Kcal/kg Additional Notes Protein: 136-169g (1.2-1.5g/kg ) AdjBW 113kg Fluid 1 ml/kcal or per MD Nutrition Intervention Change Diet Order: Continue regular Nutrition Support: D/C for now Add Supplement/Snack (indicate name/kcal Ensure High Protein BID /protein ) Provides kCal: 320 Provides Protein (gm) 32 Goal #1 Meet at least 80% of energy and protein needs via PO intakes Anticipated Discharge Needs: Regular diet Follow-Up By: 11/19/19 Additional Comments Follow for intakes and ONS tolerance
--- NOTE | 2019-11-18 12:49 | Progress Note ---
Assessment and Plan 54 y/o male with anastomic leak 11/18/19: Pulm status stable. Will see as needed. 11/12/19: Spoke with surgery this am. Currently pleased with progress. Reviewed IR note, and they plan to remove CT today. Continue IS. Will speak with CM about looking into rehabs directly from [facility] as oppose to transferring to the floor first. 11/06: Chest tube intact. No air leak. Will ask IR if catheter can be pulled out normally (i.e. not some form of tunneled catheter). If so will have them take it out later this week. If [facility] beds available, good candidate for there, likely not quite ready for floor yet. 11/04: Stable self extubation. Continue chest tube to suction. Will likely start waterseal tomorrow. Goad maybe to get CT out Tuesday. All other drains per surgery. Encouraged use of IS regularly at the bedside and suctioning as needed per . 11/03: Looks clinically better. Na was better on repeat labs. Spoke with and surgery to update them both. Most likely will attempt extubation in the am. Will hold feeds for about an hour in the morning prior to extubation then restart. 11/02: Repeat labs this am. Hard time believing that 2 liters of normal saline made his sodium increase that much. Also, once i discuss with surgery, may consider giving more blood. Will also hold tube feeds briefly as well. In case any procedures. Lovenox held last night. Continue vent support 11/01: Spoke with Dr. Krause this am and understand his concerns. Have started the transfer process. Most ICU's throughout the city are on diversion or full. [place] has received his Facesheet and we are awaiting to hear back from them. CXR is clear. Minimal vent settings. Will continue supportive care for now. Follow up any new ID recs given increasing white and fever. 10/31: Will check CXR tomorrow. Continue chest tube to suction. Will likely stay in until extubated. Continue drains. Explained to staff to be extremely careful with these drains so that they do not come out. 10/30: Acute on chronic respiratory failure requiring reintubation. Appreciate Anesthesia assistance as he was a difficult intubation when we had to change his tube out about 1 week ago. Will continue on 100% until after Scans and then start to wean back down. CXR yesterday looked like pulmonary edema but improved today with positive pressure. Continue supportive care and await results of sca ns. 10/29: Discussed today on rounds. Patient had some issues over the weekend with the ICE chips and liquids. Will obtain speech consult/eval prior to restarting clears today. Spoke with nutrition and they will adjust tube feeds with new goal. Once at goal will start to taper off TPN. ordered Incentive madhu to bedside. Will also restart home dose of elaine today. pain control and drainage m onitoring. Will continue ICU care. 10/26: Patient stable overall. Not ready for floor. Would be ok with step down if beds are needed. If spikes temp again will order blood cultures x2, urine culture, UA and repeat CXR. Gave an additional 40 of lasix this am. Will give more potassium replacement. Continue trickle feeds for now. Will continue PO meds and restart home dose of citalopram. Wean FiO2 and flow for sats >88%. Mildly hypertensive but this was secondary to agitation. Normalizing now. 10/25: Will extubate today. Will use HFNC if distress or hypoxemia is noted. Not a good candidate for bipap given his recent abdominal issues. Spoke with who is now at bedside and surgery. Will continue to attempt to achieve net negative state daily. Hold on further albumin administration. Hypernatremia is iatrogenic from lasix administration Worse case scenario, will re-intubate with anesthesia. 10/24: Responding well to lasix and protein therapy. Will give 2 more doses of lasix today. Consider one for tonight as well. Last albumin today at 1800. CXR is stable, still with layering bilateral pleural effusions. Will reassess again tomorrow. Reviewed all other telesales consultant notes. Spoke with sisters at bedside, updated and spoke with surgery. 10/23: Long discussion with surgery and via phone. Anasarca is likely from decreased oncotic pressure and immobility of several days now that abdomen is finally closed. Now fluid is essentially leaking into the interstitium now that the abdomen is shut and there is increased intra-abdominal pressure. Total Protein is 4.5 and albumin is 1.2. This is to be expected given current illness. Will attempt to increase oncotic pressure with 2 units of PRBC's and albumin infusions for the next 24 hours starting at midnight tonight. Will give lasix inbetween transfusions and then again tonight. CXR is consistent with pulmonary edema volume overload. Will continue vent for now and after significant volume removal then will attempt extubation. Discussed with and she understands. Will continue to monitor. Agree with trickle feeds and cards has switched amio over to PO to be given through the G-tube. If tolerates, hopeful to be rid of TPN soon as this is necessary but excessive volume as well. 10/22: Added diprovan as more sedation was needed. Hopefully once closed and no leaks, patient can be extubated. Cards very concerned about length of time for IV amio. Will discuss with surgery the time frame that gut can be used. 10/21: Will hold on weaning until abdomen is closed, especially knowing mental status is good. Will focus on pain control. Replace electrolytes. Appreciate Surgery recs and detail. Follow up any new recs from cards. Or tomorrow for closure Subjective Date of service: 11/18/19 Principal diagnosis: acute renal failure Interval history: No acute events. Objective Vital Signs - 12hr 11/18/19 11/18/19 11/18/19 01:34 04:22 04:25 Temperature 98.9 F Pulse Rate 85 87 Pulse Rate [ From Monitor] Respiratory 20 20 Rate Blood Pressure 105/53 107/53 Blood Pressure [Left] O2 Sat by Pulse 97 94 Oximetry 11/18/19 11/18/19 11/18/19 05:27 05:55 05:59 Temperature 98.6 F Pulse Rate 87 85 Pulse Rate [ From Monitor] Respiratory 20 Rate Blood Pressure 107/53 107/56 Blood Pressure [Left] O2 Sat by Pulse 92 Oximetry 11/18/19 11/18/19 11/18/19 09:08 09:49 10:00 Temperature 98.4 F Pulse Rate 86 86 86 Pulse Rate [ 86 From Monitor] Respiratory 18 18 Rate Blood Pressure 112/55 112/55 Blood Pressure [Left] O2 Sat by Pulse 91 91 Oximetry 11/18/19 12:05 Temperature 97.3 F L Pulse Rate 91 H Pulse Rate [ From Monitor] Respiratory Rate Blood Pressure Blood Pressure 116/56 [Left] O2 Sat by Pulse 95 Oximetry Constitutional: no acute distress, alert, other (obese) Eyes: non-icteric ENT: oropharynx moist Neck: supple Effort: normal Ascultation: Bilateral: diminished breath sounds (bases) Cardiovascular: regular rate and rhythm (no mrg) Gastrointestinal: tender, other (obese, distended, ostomy in place; wound vac in place) Integumentary: normal Extremities: no cyanosis, pink and warm, edema (1+ bilateral LE edema) Neurologic: normal mental status, non-focal exam, pupils equal and round Psychiatric: mood appropriate, affect normal CBC and BMP: 11/17/19 07:22 11/17/19 07:22 ABG, PT/INR, D-dimer: ABG POC ABG pH 7.422 (7.35-7.45) 11/03/19 04:28 ABG pH 7.390 pH Units (7.350-7.450) 10/23/19 04:47 POC ABG pCO2 45.4 (35-45) H 11/03/19 04:28 ABG pCO2 48.4 mm Hg 10/23/19 04:47 POC ABG pO2 83 (80-105) 11/03/19 04:28 ABG pO2 68.9 mm Hg (80.0-90.0) L 10/23/19 04:47 POC ABG HCO3 29.6 (22-26 mml/L) 11/03/19 04:28 POC ABG Total CO2 31 (23-27mmol/L) 11/03/19 04:28 POC ABG O2 Sat 96 11/03/19 04:28 ABG O2 Saturation 96.6 % (95.0-99.0) 10/23/19 04:47 Abnormal lab findings: Abnormal Labs 10/06/19 10/06/19 10/07/19 05:36 05:36 05:54 WBC 21.8 H 21.5 H RBC 3.55 L Hgb 10.9 L Hct 32.7 L MCH MCHC RDW Plt Count Lymph % (Auto) Pershing % (Auto) Lymph # Pershing # Seg Neutrophils % Seg Neuts % (Manual) 91.0 H Lymphocytes % (Manual) 2.0 L Seg Neutrophils # Seg Neutrophils # Man 19.8 H Lymphocytes # (Manual) 0.4 L Monocytes # (Manual) 1.1 H POC ABG pH ABG pH POC ABG pCO2 POC ABG pO2 ABG pO2 ABG HCO3 ABG Base Excess ABG Hemoglobin Oxyhemoglobin Sodium 135 L Potassium Chloride 95.9 L Carbon Dioxide BUN Creatinine 0.7 L Glucose POC Glucose Calcium Phosphorus Magnesium Direct Bilirubin AST Alkaline Phosphatase C-Reactive Protein Serum Total Protein Total Protein 5.7 L Albumin 2.5 L Prealbumin Usycj-6-Lyqctbwbo Sptoq-1-Rmxmnwxhe Gamma Globulins PEP Interpretation Triglycerides Urine pH Urine Creatinine Urine Total Protein Vancomycin Trough Digoxin Crossmatch 10/07/19 10/09/19 10/09/19 05:54 10:52 10:52 WBC 16.6 H RBC Hgb Hct MCH MCHC RDW Plt Count 498 H Lymph % (Auto) Pershing % (Auto) Lymph # Pershing # Seg Neutrophils % Seg Neuts % (Manual) 93.0 H Lymphocytes % (Manual) 5.0 L Seg Neutrophils # Seg Neutrophils # Man 15.4 H Lymphocytes # (Manual) 0.8 L Monocytes # (Manual) POC ABG pH ABG pH POC ABG pCO2 POC ABG pO2 ABG pO2 ABG HCO3 ABG Base Excess ABG Hemoglobin Oxyhemoglobin Sodium Potassium Chloride 97.9 L Carbon Dioxide 20 L D BUN 23 H Creatinine 1.7 H D Glucose 109 H POC Glucose Calcium 8.1 L Phosphorus Magnesium Direct Bilirubin AST Alkaline Phosphatase C-Reactive Protein Serum Total Protein Total Protein Albumin Prealbumin Xyqtq-4-Przyyakiv Qalqo-9-Bupwtbbau Gamma Globulins PEP Interpretation Triglycerides Urine pH Urine Creatinine Urine Total Protein Vancomycin Trough Digoxin Crossmatch 10/09/19 10/10/19 10/10/19 17:23 05:30 05:30 WBC 14.6 H RBC Hgb 11.1 L Hct 33.5 L MCH MCHC RDW Plt Count 527 H Lymph % (Auto) Pershing % (Auto) Lymph # Pershing # Seg Neutrophils % Seg Neuts % (Manual) Lymphocytes % (Manual) Seg Neutrophils # Seg Neutrophils # Man Lymphocytes # (Manual) Monocytes # (Manual) POC ABG pH ABG pH POC ABG pCO2 POC ABG pO2 ABG pO2 ABG HCO3 ABG Base Excess ABG Hemoglobin Oxyhemoglobin Sodium 130 L D Potassium 5.1 H Chloride 90.0 L 91.0 L Carbon Dioxide 20 L 20 L BUN 27 H 35 H Creatinine 1.9 H 2.0 H Glucose 104 H POC Glucose Calcium Phosphorus Magnesium Direct Bilirubin AST Alkaline Phosphatase C-Reactive Protein Serum Total Protein Total Protein Albumin Prealbumin Pchkn-1-Qddwxxdie Vxnaq-4-Ndmynoqkk Gamma Globulins PEP Interpretation Triglycerides Urine pH Urine Creatinine Urine Total Protein Vancomycin Trough Digoxin Crossmatch 10/10/19 10/10/19 10/11/19 08:33 08:44 05:41 WBC 13.2 H RBC Hgb 11.3 L Hct 33.8 L MCH MCHC RDW 15.3 H Plt Count 543 H Lymph % (Auto) Pershing % (Auto) Lymph # Pershing # Seg Neutrophils % Seg Neuts % (Manual) Lymphocytes % (Manual) Seg Neutrophils # Seg Neutrophils # Man Lymphocytes # (Manual) Monocytes # (Manual) POC ABG pH ABG pH POC ABG pCO2 POC ABG pO2 ABG pO2 ABG HCO3 ABG Base Excess ABG Hemoglobin Oxyhemoglobin Sodium Potassium Chloride Carbon Dioxide BUN Creatinine Glucose 113 H POC Glucose 117 H Calcium Phosphorus Magnesium Direct Bilirubin AST Alkaline Phosphatase C-Reactive Protein Serum Total Protein Total Protein Albumin Prealbumin Rtvls-1-Qlrxnwpnu Lfiqd-0-Qgnzucyig Gamma Globulins PEP Interpretation Triglycerides Urine pH Urine Creatinine Urine Total Protein Vancomycin Trough Digoxin Crossmatch 10/11/19 10/11/19 10/11/19 05:41 06:23 06:23 WBC RBC Hgb Hct MCH MCHC RDW Plt Count Lymph % (Auto) Pershing % (Auto) Lymph # Pershing # Seg Neutrophils % Seg Neuts % (Manual) Lymphocytes % (Manual) Seg Neutrophils # Seg Neutrophils # Man Lymphocytes # (Manual) Monocytes # (Manual) POC ABG pH ABG pH POC ABG pCO2 POC ABG pO2 ABG pO2 ABG HCO3 ABG Base Excess ABG Hemoglobin Oxyhemoglobin Sodium 134 L Potassium Chloride 96.3 L Carbon Dioxide BUN 37 H Creatinine Glucose 58 L POC Glucose Calcium Phosphorus 4.90 H Magnesium Direct Bilirubin AST Alkaline Phosphatase C-Reactive Protein Serum Total Protein Total Protein Albumin Prealbumin Gnuab-2-Qtzvjdujd Bldee-3-Spkcdumia Gamma Globulins PEP Interpretation Triglycerides Urine pH Urine Creatinine 118.2 H 116.8 H Urine Total Protein 105 H 104 H Vancomycin Trough Digoxin Crossmatch 10/11/19 10/12/19 10/12/19 09:00 06:09 06:09 WBC 13.8 H RBC 3.39 L Hgb 10.2 L Hct 30.9 L MCH MCHC RDW 15.5 H Plt Count 459 H Lymph % (Auto) Pershing % (Auto) Lymph # Pershing # Seg Neutrophils % Seg Neuts % (Manual) Lymphocytes % (Manual) Seg Neutrophils # Seg Neutrophils # Man Lymphocytes # (Manual) Monocytes # (Manual) POC ABG pH ABG pH POC ABG pCO2 POC ABG pO2 ABG pO2 ABG HCO3 ABG Base Excess ABG Hemoglobin Oxyhemoglobin Sodium 131 L Potassium Chloride 96.2 L Carbon Dioxide 21 L BUN 43 H Creatinine Glucose 72 L POC Glucose Calcium Phosphorus Magnesium Direct Bilirubin AST Alkaline Phosphatase C-Reactive Protein Serum Total Protein 5.2 L Total Protein Albumin 1.9 L Prealbumin Ybcwl-4-Wbxoxutdy 0.9 H Ygzmc-9-Wxrolokmh 1.0 H Gamma Globulins 0.7 L PEP Interpretation see below H Triglycerides Urine pH Urine Creatinine Urine Total Protein Vancomycin Trough Digoxin Crossmatch 10/12/19 10/12/19 10/12/19 08:20 09:30 09:30 WBC RBC Hgb Hct MCH MCHC RDW Plt Count Lymph % (Auto) Pershing % (Auto) Lymph # Pershing # Seg Neutrophils % Seg Neuts % (Manual) Lymphocytes % (Manual) Seg Neutrophils # Seg Neutrophils # Man Lymphocytes # (Manual) Monocytes # (Manual) POC ABG pH ABG pH POC ABG pCO2 POC ABG pO2 63 L ABG pO2 ABG HCO3 ABG Base Excess ABG Hemoglobin Oxyhemoglobin Sodium Potassium Chloride Carbon Dioxide BUN Creatinine Glucose POC Glucose Calcium Phosphorus Magnesium 2.50 H Direct Bilirubin 0.3 H AST Alkaline Phosphatase C-Reactive Protein Serum Total Protein Total Protein 5.1 L Albumin 2.2 L Prealbumin Iurxw-8-Cpriseynd Jnaxf-0-Alhuguviu Gamma Globulins PEP Interpretation Triglycerides Urine pH Urine Creatinine Urine Total Protein Vancomycin Trough Digoxin Crossmatch 10/13/19 10/13/19 10/13/19 04:20 04:20 13:20 WBC 15.7 H RBC 3.64 L Hgb 10.9 L Hct 33.1 L MCH MCHC RDW 15.8 H Plt Count 488 H Lymph % (Auto) Pershing % (Auto) Lymph # Pershing # Seg Neutrophils % Seg Neuts % (Manual) Lymphocytes % (Manual) Seg Neutrophils # Seg Neutrophils # Man Lymphocytes # (Manual) Monocytes # (Manual) POC ABG pH ABG pH POC ABG pCO2 POC ABG pO2 ABG pO2 ABG HCO3 ABG Base Excess ABG Hemoglobin Oxyhemoglobin Sodium Potassium Chloride Carbon Dioxide BUN 28 H Creatinine Glucose POC Glucose Calcium Phosphorus Magnesium Direct Bilirubin AST Alkaline Phosphatase C-Reactive Protein Serum Total Protein Total Protein Albumin Prealbumin Mltgy-4-Gxolkjxms Jucqq-5-Strafdqke Gamma Globulins PEP Interpretation Triglycerides Urine pH Urine Creatinine Urine Total Protein Vancomycin Trough Digoxin Crossmatch See Detail 10/13/19 10/13/19 10/14/19 18:24 20:05 04:47 WBC 24.2 H RBC Hgb 10.9 L Hct 34.2 L MCH MCHC RDW 17.0 H Plt Count 442 H Lymph % (Auto) Pershing % (Auto) Lymph # Pershing # Seg Neutrophils % Seg Neuts % (Manual) Lymphocytes % (Manual) Seg Neutrophils # Seg Neutrophils # Man Lymphocytes # (Manual) Monocytes # (Manual) POC ABG pH ABG pH 7.180 L* 7.278 L POC ABG pCO2 POC ABG pO2 ABG pO2 130.7 H ABG HCO3 ABG Base Excess -6.5 L -6.5 L ABG Hemoglobin 12.2 L 12.3 L Oxyhemoglobin 92.9 L Sodium Potassium Chloride Carbon Dioxide BUN Creatinine Glucose POC Glucose Calcium Phosphorus Magnesium Direct Bilirubin AST Alkaline Phosphatase C-Reactive Protein Serum Total Protein Total Protein Albumin Prealbumin Hdpoc-9-Jbrsdzpeo Vnvra-6-Uloggiakd Gamma Globulins PEP Interpretation Triglycerides Urine pH Urine Creatinine Urine Total Protein Vancomycin Trough Digoxin Crossmatch 10/14/19 10/14/19 10/14/19 04:47 05:40 10:14 WBC RBC Hgb Hct MCH MCHC RDW Plt Count Lymph % (Auto) Pershing % (Auto) Lymph # Pershing # Seg Neutrophils % Seg Neuts % (Manual) Lymphocytes % (Manual) Seg Neutrophils # Seg Neutrophils # Man Lymphocytes # (Manual) Monocytes # (Manual) POC ABG pH ABG pH POC ABG pCO2 POC ABG pO2 ABG pO2 76.3 L ABG HCO3 19.1 L ABG Base Excess -5.8 L ABG Hemoglobin 10.9 L Oxyhemoglobin 93.4 L Sodium Potassium 5.1 H D Chloride 109.2 H Carbon Dioxide 17 L BUN 38 H Creatinine 1.8 H D Glucose 104 H POC Glucose Calcium 7.4 L Phosphorus 5.60 H Magnesium Direct Bilirubin AST Alkaline Phosphatase C-Reactive Protein Serum Total Protein Total Protein Albumin Prealbumin Vlvgk-5-Rilziridr Jvjam-5-Wlbeynter Gamma Globulins PEP Interpretation Triglycerides Urine pH Urine Creatinine Urine Total Protein Vancomycin Trough Digoxin Crossmatch 10/14/19 10/15/1910/15/19 23:46 04:32 04:32 WBC 15.5 H RBC 2.89 L Hgb 8.8 L Hct 27.3 L D MCH MCHC RDW 16.6 H Plt Count Lymph % (Auto) Pershing % (Auto) Lymph # Pershing # Seg Neutrophils % Seg Neuts % (Manual) Lymphocytes % (Manual) Seg Neutrophils # Seg Neutrophils # Man Lymphocytes # (Manual) Monocytes # (Manual) POC ABG pH ABG pH POC ABG pCO2 POC ABG pO2 ABG pO2 ABG HCO3 ABG Base Excess ABG Hemoglobin Oxyhemoglobin Sodium 147 H Potassium Chloride 114.0 H Carbon Dioxide 19 L BUN 42 H Creatinine Glucose 112 H POC Glucose 113 H Calcium 7.3 L Phosphorus Magnesium Direct Bilirubin AST 72 H Alkaline Phosphatase C-Reactive Protein 30.60 H Serum Total Protein Total Protein 4.0 L D Albumin 1.7 L Prealbumin 0.030 L Poqpe-5-Fiqkykmuz Vltgv-5-Ltwnotmyu Gamma Globulins PEP Interpretation Triglycerides Urine pH Urine Creatinine Urine Total Protein Vancomycin Trough Digoxin Crossmatch 10/15/19 10/15/19 10/15/19 05:30 12:08 17:23 WBC RBC Hgb Hct MCH MCHC RDW Plt Count Lymph % (Auto) Pershing % (Auto) Lymph # Pershing # Seg Neutrophils % Seg Neuts % (Manual) Lymphocytes % (Manual) Seg Neutrophils # Seg Neutrophils # Man Lymphocytes # (Manual) Monocytes # (Manual) POC ABG pH ABG pH 7.296 L POC ABG pCO2 POC ABG pO2 ABG pO2 114.7 H ABG HCO3 ABG Base Excess -3.7 L ABG Hemoglobin 8.9 L Oxyhemoglobin Sodium Potassium Chloride Carbon Dioxide BUN Creatinine Glucose POC Glucose 106 H 106 H Calcium Phosphorus Magnesium Direct Bilirubin AST Alkaline Phosphatase C-Reactive Protein Serum Total Protein Total Protein Albumin Prealbumin Qgqsh-7-Apilcvcbi Kjsbi-0-Fcdzjevcu Gamma Globulins PEP Interpretation Triglycerides Urine pH Urine Creatinine Urine Total Protein Vancomycin Trough Digoxin Crossmatch 10/16/19 10/16/19 10/16/19 00:07 04:44 05:24 WBC RBC Hgb Hct MCH MCHC RDW Plt Count Lymph % (Auto) Pershing % (Auto) Lymph # Pershing # Seg Neutrophils % Seg Neuts % (Manual) Lymphocytes % (Manual) Seg Neutrophils # Seg Neutrophils # Man Lymphocytes # (Manual) Monocytes # (Manual) POC ABG pH ABG pH POC ABG pCO2 POC ABG pO2 ABG pO2 ABG HCO3 ABG Base Excess ABG Hemoglobin Oxyhemoglobin Sodium 150 H Potassium Chloride 115.8 H Carbon Dioxide BUN 35 H Creatinine Glucose 129 H POC Glucose 119 H 129 H Calcium 7.3 L Phosphorus 1.80 L D Magnesium Direct Bilirubin AST Alkaline Phosphatase C-Reactive Protein Serum Total Protein Total Protein Albumin Prealbumin Ibyyo-9-Uugdwnhfm Uegnn-3-Dmvdjglhs Gamma Globulins PEP Interpretation Triglycerides Urine pH Urine Creatinine Urine Total Protein Vancomycin Trough Digoxin Crossmatch 10/16/19 10/16/19 10/16/19 06:53 09:20 11:58 WBC 14.6 H RBC 2.70 L Hgb 8.1 L Hct 25.2 L MCH MCHC RDW 16.7 H Plt Count Lymph % (Auto) Pershing % (Auto) Lymph # Pershing # Seg Neutrophils % Seg Neuts % (Manual) 79.0 H Lymphocytes % (Manual) 4.0 L Seg Neutrophils # Seg Neutrophils # Man 11.5 H Lymphocytes # (Manual) 0.6 L Monocytes # (Manual) POC ABG pH ABG pH POC ABG pCO2 47.0 H POC ABG pO2 ABG pO2 ABG HCO3 ABG Base Excess ABG Hemoglobin Oxyhemoglobin Sodium Potassium Chloride Carbon Dioxide BUN Creatinine Glucose POC Glucose Calcium Phosphorus Magnesium Direct Bilirubin AST Alkaline Phosphatase C-Reactive Protein Serum Total Protein Total Protein Albumin Prealbumin Yuhel-7-Whhjmabap Kyvuo-1-Aviuwdfge Gamma Globulins PEP Interpretation Triglycerides Urine pH Urine Creatinine Urine Total Protein Vancomycin Trough Digoxin Crossmatch See Detail 10/16/19 10/16/19 10/16/19 15:23 17:50 23:58 WBC RBC Hgb Hct MCH MCHC RDW Plt Count Lymph % (Auto) Pershing % (Auto) Lymph # Pershing # Seg Neutrophils % Seg Neuts % (Manual) Lymphocytes % (Manual) Seg Neutrophils # Seg Neutrophils # Man Lymphocytes # (Manual) Monocytes # (Manual) POC ABG pH ABG pH POC ABG pCO2 POC ABG pO2 ABG pO2 ABG HCO3 ABG Base Excess ABG Hemoglobin Oxyhemoglobin Sodium Potassium Chloride Carbon Dioxide BUN Creatinine Glucose POC Glucose 221 H 201 H 179 H Calcium Phosphorus Magnesium Direct Bilirubin AST Alkaline Phosphatase C-Reactive Protein Serum Total Protein Total Protein Albumin Prealbumin Hrtly-2-Trtifvwsy Rrluk-5-Qdtgkgacx Gamma Globulins PEP Interpretation Triglycerides Urine pH Urine Creatinine Urine Total Protein Vancomycin Trough Digoxin Crossmatch 10/17/19 10/17/19 10/17/19 04:08 04:08 05:41 WBC 22.3 H RBC 3.35 L Hgb 10.0 L Hct 31.2 L D MCH MCHC RDW 16.1 H Plt Count Lymph % (Auto) Pershing % (Auto) Lymph # Pershing # Seg Neutrophils % Seg Neuts % (Manual) Lymphocytes % (Manual) Seg Neutrophils # Seg Neutrophils # Man Lymphocytes # (Manual) Monocytes # (Manual) POC ABG pH 7.310 L ABG pH POC ABG pCO2 52.8 H POC ABG pO2 70 L ABG pO2 ABG HCO3 ABG Base Excess ABG Hemoglobin Oxyhemoglobin Sodium 147 H Potassium Chloride 114.9 H Carbon Dioxide BUN 36 H Creatinine Glucose 165 H POC Glucose Calcium 6.9 L Phosphorus 2.20 L D Magnesium Direct Bilirubin AST Alkaline Phosphatase C-Reactive Protein Serum Total Protein Total Protein Albumin Prealbumin Goewr-7-Sveahogrt Pcuvk-0-Fernzslfx Gamma Globulins PEP Interpretation Triglycerides Urine pH Urine Creatinine Urine Total Protein Vancomycin Trough Digoxin Crossmatch 10/17/19 10/17/19 10/17/19 05:42 11:33 18:17 WBC RBC Hgb Hct MCH MCHC RDW Plt Count Lymph % (Auto) Pershing % (Auto) Lymph # Pershing # Seg Neutrophils % Seg Neuts % (Manual) Lymphocytes % (Manual) Seg Neutrophils # Seg Neutrophils # Man Lymphocytes # (Manual) Monocytes # (Manual) POC ABG pH ABG pH POC ABG pCO2 POC ABG pO2 ABG pO2 ABG HCO3 ABG Base Excess ABG Hemoglobin Oxyhemoglobin Sodium Potassium Chloride Carbon Dioxide BUN Creatinine Glucose POC Glucose 149 H 154 H 163 H Calcium Phosphorus Magnesium Direct Bilirubin AST Alkaline Phosphatase C-Reactive Protein Serum Total Protein Total Protein Albumin Prealbumin Xwgbe-4-Reulsxwua Nglzn-0-Ujkkdkiqk Gamma Globulins PEP Interpretation Triglycerides Urine pH Urine Creatinine Urine Total Protein Vancomycin Trough Digoxin Crossmatch 10/17/19 10/18/19 10/18/19 23:34 03:29 04:50 WBC RBC Hgb Hct MCH MCHC RDW Plt Count Lymph % (Auto) Pershing % (Auto) Lymph # Pershing # Seg Neutrophils % Seg Neuts % (Manual) Lymphocytes % (Manual) Seg Neutrophils # Seg Neutrophils # Man Lymphocytes # (Manual) Monocytes # (Manual) POC ABG pH ABG pH POC ABG pCO2 POC ABG pO2 ABG pO2 78.8 L ABG HCO3 ABG Base Excess ABG Hemoglobin 8.8 L Oxyhemoglobin Sodium Potassium Chloride 111.8 H Carbon Dioxide BUN 27 H Creatinine 0.6 L Glucose 140 H POC Glucose 135 H Calcium 7.1 L Phosphorus 1.80 L Magnesium Direct Bilirubin AST Alkaline Phosphatase C-Reactive Protein Serum Total Protein Total Protein Albumin Prealbumin Gngnt-4-Wexhifsem Gnxry-5-Oouxarrgn Gamma Globulins PEP Interpretation Triglycerides Urine pH Urine Creatinine Urine Total Protein Vancomycin Trough Digoxin Crossmatch 10/18/19 10/18/19 10/18/19 05:45 11:19 18:26 WBC RBC Hgb Hct MCH MCHC RDW Plt Count Lymph % (Auto) Pershing % (Auto) Lymph # Pershing # Seg Neutrophils % Seg Neuts % (Manual) Lymphocytes % (Manual) Seg Neutrophils # Seg Neutrophils # Man Lymphocytes # (Manual) Monocytes # (Manual) POC ABG pH ABG pH POC ABG pCO2 POC ABG pO2 ABG pO2 ABG HCO3 ABG Base Excess ABG Hemoglobin Oxyhemoglobin Sodium Potassium Chloride Carbon Dioxide BUN Creatinine Glucose POC Glucose 145 H 152 H 125 H Calcium Phosphorus Magnesium Direct Bilirubin AST Alkaline Phosphatase C-Reactive Protein Serum Total Protein Total Protein Albumin Prealbumin Ofvty-1-Gdvcpujod Sxieh-8-Lgrqyxrag Gamma Globulins PEP Interpretation Triglycerides Urine pH Urine Creatinine Urine Total Protein Vancomycin Trough Digoxin Crossmatch 10/18/19 10/19/19 10/19/19 23:27 04:21 04:21 WBC RBC Hgb Hct MCH MCHC RDW Plt Count Lymph % (Auto) Pershing % (Auto) Lymph # Pershing # Seg Neutrophils % Seg Neuts % (Manual) Lymphocytes % (Manual) Seg Neutrophils # Seg Neutrophils # Man Lymphocytes # (Manual) Monocytes # (Manual) POC ABG pH ABG pH POC ABG pCO2 POC ABG pO2 ABG pO2 ABG HCO3 ABG Base Excess ABG Hemoglobin Oxyhemoglobin Sodium Potassium Chloride 108.4 H Carbon Dioxide BUN 22 H Creatinine 0.5 L Glucose 123 H POC Glucose 127 H Calcium 7.4 L Phosphorus 1.80 L Magnesium Direct Bilirubin AST Alkaline Phosphatase C-Reactive Protein Serum Total Protein Total Protein Albumin Prealbumin Gpupy-0-Yvdolmdsn Psirc-5-Szvuyesfv Gamma Globulins PEP Interpretation Triglycerides Urine pH Urine Creatinine Urine Total Protein Vancomycin Trough Digoxin 0.7 L Crossmatch 10/19/19 10/19/19 10/19/19 05:00 05:35 11:26 WBC RBC Hgb Hct MCH MCHC RDW Plt Count Lymph % (Auto) [place] % (Auto) Lymph # [place] # Seg Neutrophils % Seg Neuts % (Manual) Lymphocytes % (Manual) Seg Neutrophils # Seg Neutrophils # Man Lymphocytes # (Manual) Monocytes # (Manual) POC ABG pH ABG pH 7.456 H POC ABG pCO2 POC ABG pO2 ABG pO2 78.8 L ABG HCO3 ABG Base Excess ABG Hemoglobin 5.6 L Oxyhemoglobin Sodium Potassium Chloride Carbon Dioxide BUN Creatinine Glucose POC Glucose 124 H 111 H Calcium Phosphorus Magnesium Direct Bilirubin AST Alkaline Phosphatase C-Reactive Protein Serum Total Protein Total Protein Albumin Prealbumin Lmjck-9-Gpghbkfkf Aowlz-3-Fdjxjpzzg Gamma Globulins PEP Interpretation Triglycerides Urine pH Urine Creatinine Urine Total Protein Vancomycin Trough Digoxin Crossmatch 10/19/19 10/20/19 10/20/19 23:23 04:50 05:17 WBC RBC Hgb Hct MCH MCHC RDW Plt Count Lymph % (Auto) [place] % (Auto) Lymph # [place] # Seg Neutrophils % Seg Neuts % (Manual) Lymphocytes % (Manual) Seg Neutrophils # Seg Neutrophils # Man Lymphocytes # (Manual) Monocytes # (Manual) POC ABG pH ABG pH POC ABG pCO2 POC ABG pO2 ABG pO2 ABG HCO3 ABG Base Excess ABG Hemoglobin Oxyhemoglobin Sodium Potassium Chloride 108.1 H Carbon Dioxide BUN Creatinine 0.4 L Glucose 134 H POC Glucose 129 H 123 H Calcium 7.1 L Phosphorus Magnesium Direct Bilirubin AST Alkaline Phosphatase C-Reactive Protein Serum Total Protein Total Protein Albumin Prealbumin Rcohe-3-Orwtidrxk Zoxld-5-Ubfnxvslk Gamma Globulins PEP Interpretation Triglycerides Urine pH Urine Creatinine Urine Total Protein Vancomycin Trough Digoxin Crossmatch 10/20/19 10/20/19 10/21/19 11:40 19:06 05:08 WBC RBC Hgb Hct MCH MCHC RDW Plt Count Lymph % (Auto) [place] % (Auto) Lymph # [place] # Seg Neutrophils % Seg Neuts % (Manual) Lymphocytes % (Manual) Seg Neutrophils # Seg Neutrophils # Man Lymphocytes # (Manual) Monocytes # (Manual) POC ABG pH ABG pH POC ABG pCO2 POC ABG pO2 ABG pO2 ABG HCO3 ABG Base Excess ABG Hemoglobin Oxyhemoglobin Sodium Potassium Chloride Carbon Dioxide BUN Creatinine Glucose POC Glucose 139 H 117 H 131 H Calcium Phosphorus Magnesium Direct Bilirubin AST Alkaline Phosphatase C-Reactive Protein Serum Total Protein Total Protein Albumin Prealbumin Mmikt-4-Xtntaeame Lcybs-3-Tdqthrbch Gamma Globulins PEP Interpretation Triglycerides Urine pH Urine Creatinine Urine Total Protein Vancomycin Trough Digoxin Crossmatch 10/21/19 10/21/19 10/21/19 05:30 12:04 17:31 WBC RBC Hgb Hct MCH MCHC RDW Plt Count Lymph % (Auto) [place] % (Auto) Lymph # [place] # Seg Neutrophils % Seg Neuts % (Manual) Lymphocytes % (Manual) Seg Neutrophils # Seg Neutrophils # Man Lymphocytes # (Manual) Monocytes # (Manual) POC ABG pH ABG pH POC ABG pCO2 POC ABG pO2 ABG pO2 ABG HCO3 ABG Base Excess ABG Hemoglobin Oxyhemoglobin Sodium Potassium Chloride 107.8 H Carbon Dioxide BUN Creatinine 0.5 L Glucose 119 H POC Glucose 119 H 110 H Calcium 7.6 L Phosphorus Magnesium Direct Bilirubin AST Alkaline Phosphatase C-Reactive Protein Serum Total Protein Total Protein Albumin Prealbumin Akqnn-3-Exzijoies Qenis-1-Ttgdlksvw Gamma Globulins PEP Interpretation Triglycerides Urine pH Urine Creatinine Urine Total Protein Vancomycin Trough Digoxin Crossmatch 10/22/19 10/22/19 10/22/19 05:14 05:37 12:07 WBC RBC Hgb Hct MCH MCHC RDW Plt Count Lymph % (Auto) [place] % (Auto) Lymph # [place] # Seg Neutrophils % Seg Neuts % (Manual) Lymphocytes % (Manual) Seg Neutrophils # Seg Neutrophils # Man Lymphocytes # (Manual) Monocytes # (Manual) POC ABG pH ABG pH POC ABG pCO2 POC ABG pO2 ABG pO2 ABG HCO3 ABG Base Excess ABG Hemoglobin Oxyhemoglobin Sodium Potassium Chloride Carbon Dioxide BUN Creatinine 0.5 L Glucose 116 H POC Glucose 110 H 126 H Calcium 7.7 L Phosphorus Magnesium Direct Bilirubin AST Alkaline Phosphatase C-Reactive Protein Serum Total Protein Total Protein Albumin Prealbumin Qieah-5-Qbtlrxxoz Idnta-5-Dmjijezsg Gamma Globulins PEP Interpretation Triglycerides Urine pH Urine Creatinine Urine Total Protein Vancomycin Trough Digoxin Crossmatch 10/22/19 10/22/19 10/23/19 18:36 23:19 04:39 WBC RBC Hgb Hct MCH MCHC RDW Plt Count Lymph % (Auto) [place] % (Auto) Lymph # [place] # Seg Neutrophils % Seg Neuts % (Manual) Lymphocytes % (Manual) Seg Neutrophils # Seg Neutrophils # Man Lymphocytes # (Manual) Monocytes # (Manual) POC ABG pH ABG pH POC ABG pCO2 POC ABG pO2 ABG pO2 ABG HCO3 ABG Base Excess ABG Hemoglobin Oxyhemoglobin Sodium Potassium Chloride Carbon Dioxide BUN Creatinine Glucose POC Glucose 120 H 127 H 112 H Calcium Phosphorus Magnesium Direct Bilirubin AST Alkaline Phosphatase C-Reactive Protein Serum Total Protein Total Protein Albumin Prealbumin Synsa-1-Gtqsmslzm Ooabt-5-Hwwphzgfc Gamma Globulins PEP Interpretation Triglycerides Urine pH Urine Creatinine Urine Total Protein Vancomycin Trough Digoxin Crossmatch 10/23/19 10/23/19 10/23/19 04:47 05:15 10:44 WBC 18.3 H RBC 2.33 L Hgb 7.0 L Hct 21.5 L MCH MCHC RDW 16.2 H Plt Count Lymph % (Auto) 4.9 L [place] % (Auto) 8.1 H Lymph # 0.9 L [place] # 1.5 H Seg Neutrophils % 86.7 H Seg Neuts % (Manual) Lymphocytes % (Manual) Seg Neutrophils # 15.9 H Seg Neutrophils # Man Lymphocytes # (Manual) Monocytes # (Manual) POC ABG pH ABG pH POC ABG pCO2 POC ABG pO2 ABG pO2 68.9 L ABG HCO3 28.7 H ABG Base Excess 3.4 H ABG Hemoglobin 6.6 L Oxyhemoglobin 94.1 L Sodium Potassium Chloride Carbon Dioxide BUN Creatinine 0.5 L Glucose 165 H POC Glucose Calcium 7.4 L Phosphorus Magnesium Direct Bilirubin AST Alkaline Phosphatase C-Reactive Protein Serum Total Protein Total Protein Albumin Prealbumin Gjlka-4-Fhnpcpfqv Soqbk-0-Opwpwampe Gamma Globulins PEP Interpretation Triglycerides Urine pH Urine Creatinine Urine Total Protein Vancomycin Trough Digoxin Crossmatch 10/23/19 10/23/19 10/23/19 10:44 11:46 11:50 WBC RBC Hgb Hct MCH MCHC RDW Plt Count Lymph % (Auto) [place] % (Auto) Lymph # [place] # Seg Neutrophils % Seg Neuts % (Manual) Lymphocytes % (Manual) Seg Neutrophils # Seg Neutrophils # Man Lymphocytes # (Manual) Monocytes # (Manual) POC ABG pH ABG pH POC ABG pCO2 POC ABG pO2 ABG pO2 ABG HCO3 ABG Base Excess ABG Hemoglobin Oxyhemoglobin Sodium Potassium Chloride Carbon Dioxide BUN Creatinine Glucose POC Glucose 138 H Calcium Phosphorus Magnesium Direct Bilirubin 0.7 H AST Alkaline Phosphatase C-Reactive Protein Serum Total Protein Total Protein 4.5 L Albumin 1.2 L Prealbumin Ueiem-5-Raacaneun Uikvz-9-Uyknhxyyd Gamma Globulins PEP Interpretation Triglycerides Urine pH Urine Creatinine Urine Total Protein Vancomycin Trough Digoxin Crossmatch See Detail 10/23/19 10/24/19 10/24/19 17:53 00:07 05:05 WBC RBC Hgb Hct MCH MCHC RDW Plt Count Lymph % (Auto) [place] % (Auto) Lymph # [place] # Seg Neutrophils % Seg Neuts % (Manual) Lymphocytes % (Manual) Seg Neutrophils # Seg Neutrophils # Man Lymphocytes # (Manual) Monocytes # (Manual) POC ABG pH ABG pH POC ABG pCO2 POC ABG pO2 ABG pO2 ABG HCO3 ABG Base Excess ABG Hemoglobin Oxyhemoglobin Sodium Potassium 3.5 L Chloride Carbon Dioxide BUN Creatinine 0.5 L Glucose 116 H POC Glucose 137 H 110 H Calcium 8.0 L Phosphorus Magnesium Direct Bilirubin AST Alkaline Phosphatase C-Reactive Protein Serum Total Protein Total Protein Albumin Prealbumin Khghm-8-Vqvrsixxl Zfifr-1-Imiukjdyi Gamma Globulins PEP Interpretation Triglycerides Urine pH Urine Creatinine Urine Total Protein Vancomycin Trough Digoxin Crossmatch 10/24/19 10/24/19 10/24/19 05:05 11:56 13:00 WBC 13.0 H RBC 2.73 L Hgb 8.0 L Hct 24.2 L MCH MCHC RDW 17.9 H Plt Count Lymph % (Auto) 7.0 L [place] % (Auto) 9.5 H Lymph # 0.9 L [place] # 1.2 H Seg Neutrophils % 82.7 H Seg Neuts % (Manual) Lymphocytes % (Manual) Seg Neutrophils # 10.7 H Seg Neutrophils # Man Lymphocytes # (Manual) Monocytes # (Manual) POC ABG pH ABG pH POC ABG pCO2 POC ABG pO2 ABG pO2 ABG HCO3 ABG Base Excess ABG Hemoglobin Oxyhemoglobin Sodium Potassium Chloride Carbon Dioxide BUN Creatinine Glucose POC Glucose 159 H Calcium Phosphorus Magnesium Direct Bilirubin AST Alkaline Phosphatase C-Reactive Protein Serum Total Protein Total Protein Albumin Prealbumin Pgqrx-8-Raqpuyfpz Nzonx-8-Grsjgridk Gamma Globulins PEP Interpretation Triglycerides 216 H Urine pH Urine Creatinine Urine Total Protein Vancomycin Trough Digoxin Crossmatch 10/24/19 10/24/19 10/25/19 17:42 23:45 04:19 WBC RBC Hgb Hct MCH MCHC RDW Plt Count Lymph % (Auto) [place] % (Auto) Lymph # [place] # Seg Neutrophils % Seg Neuts % (Manual) Lymphocytes % (Manual) Seg Neutrophils # Seg Neutrophils # Man Lymphocytes # (Manual) Monocytes # (Manual) POC ABG pH ABG pH POC ABG pCO2 POC ABG pO2 ABG pO2 ABG HCO3 ABG Base Excess ABG Hemoglobin Oxyhemoglobin Sodium 147 H Potassium Chloride Carbon Dioxide 33 H BUN Creatinine 0.5 L Glucose 111 H POC Glucose 120 H 116 H Calcium Phosphorus Magnesium Direct Bilirubin AST Alkaline Phosphatase C-Reactive Protein Serum Total Protein Total Protein 5.7 L D Albumin 2.5 L Prealbumin Kikqs-6-Vkxejtefn Iobnb-5-Vnyudwnqx Gamma Globulins PEP Interpretation Triglycerides 230 H Urine pH Urine Creatinine Urine Total Protein Vancomycin Trough Digoxin Crossmatch 10/25/19 10/25/19 10/25/19 04:19 05:31 12:20 WBC RBC 2.69 L Hgb 8.1 L Hct 23.9 L MCH MCHC RDW 17.3 H Plt Count Lymph % (Auto) [place] % (Auto) Lymph # [place] # Seg Neutrophils % Seg Neuts % (Manual) Lymphocytes % (Manual) Seg Neutrophils # Seg Neutrophils # Man Lymphocytes # (Manual) Monocytes # (Manual) POC ABG pH ABG pH POC ABG pCO2 POC ABG pO2 ABG pO2 ABG HCO3 ABG Base Excess ABG Hemoglobin Oxyhemoglobin Sodium Potassium Chloride Carbon Dioxide BUN Creatinine Glucose POC Glucose 126 H 114 H Calcium Phosphorus Magnesium Direct Bilirubin AST Alkaline Phosphatase C-Reactive Protein Serum Total Protein Total Protein Albumin Prealbumin Afbsk-6-Qdqtisbxb Mllqx-5-Qwazwkirk Gamma Globulins PEP Interpretation Triglycerides Urine pH Urine Creatinine Urine Total Protein Vancomycin Trough Digoxin Crossmatch 10/25/19 10/25/19 10/26/19 18:30 23:09 06:15 WBC RBC Hgb Hct MCH MCHC RDW Plt Count Lymph % (Auto) [place] % (Auto) Lymph # [place] # Seg Neutrophils % Seg Neuts % (Manual) Lymphocytes % (Manual) Seg Neutrophils # Seg Neutrophils # Man Lymphocytes # (Manual) Monocytes # (Manual) POC ABG pH ABG pH POC ABG pCO2 POC ABG pO2 ABG pO2 ABG HCO3 ABG Base Excess ABG Hemoglobin Oxyhemoglobin Sodium Potassium 3.5 L Chloride Carbon Dioxide BUN Creatinine 0.5 L Glucose 112 H POC Glucose 121 H 107 H Calcium 8.3 L Phosphorus Magnesium Direct Bilirubin AST Alkaline Phosphatase 148 H C-Reactive Protein Serum Total Protein Total Protein 5.9 L Albumin 2.4 L Prealbumin Amxkf-8-Mmmltlktf Hplau-3-Quujiueas Gamma Globulins PEP Interpretation Triglycerides Urine pH Urine Creatinine Urine Total Protein Vancomycin Trough Digoxin Crossmatch 10/26/19 10/26/19 10/26/19 06:15 12:21 17:35 WBC RBC Hgb Hct MCH MCHC RDW Plt Count Lymph % (Auto) [place] % (Auto) Lymph # [place] # Seg Neutrophils % Seg Neuts % (Manual) Lymphocytes % (Manual) Seg Neutrophils # Seg Neutrophils # Man Lymphocytes # (Manual) Monocytes # (Manual) POC ABG pH ABG pH POC ABG pCO2 POC ABG pO2 ABG pO2 ABG HCO3 ABG Base Excess ABG Hemoglobin Oxyhemoglobin Sodium Potassium Chloride Carbon Dioxide BUN Creatinine Glucose POC Glucose 134 H 141 H Calcium Phosphorus Magnesium Direct Bilirubin AST Alkaline Phosphatase C-Reactive Protein Serum Total Protein Total Protein Albumin Prealbumin Vihxm-8-Bhuhteedi Rtzlh-8-Xficzdart Gamma Globulins PEP Interpretation Triglycerides 185 H Urine pH Urine Creatinine Urine Total Protein Vancomycin Trough Digoxin Crossmatch 10/26/19 10/27/19 10/27/19 Unknown 04:30 11:33 WBC RBC Hgb Hct MCH MCHC RDW Plt Count Lymph % (Auto) [place] % (Auto) Lymph # [place] # Seg Neutrophils % Seg Neuts % (Manual) Lymphocytes % (Manual) Seg Neutrophils # Seg Neutrophils # Man Lymphocytes # (Manual) Monocytes # (Manual) POC ABG pH ABG pH POC ABG pCO2 POC ABG pO2 ABG pO2 ABG HCO3 ABG Base Excess ABG Hemoglobin Oxyhemoglobin Sodium Potassium 3.2 L Chloride Carbon Dioxide BUN 23 H Creatinine 0.6 L Glucose 130 H POC Glucose 131 H Calcium 7.9 L Phosphorus Magnesium Direct Bilirubin AST Alkaline Phosphatase C-Reactive Protein Serum Total Protein Total Protein Albumin Prealbumin Uxwlw-8-Gncnryanv Mkyfj-9-Mqdaoruuc Gamma Globulins PEP Interpretation Triglycerides Urine pH 9.0 H Urine Creatinine Urine Total Protein Vancomycin Trough Digoxin Crossmatch 10/27/19 10/28/19 10/28/19 17:45 05:25 05:49 WBC RBC 2.85 L Hgb 8.3 L Hct 26.8 L MCH MCHC 31 L RDW 17.4 H Plt Count Lymph % (Auto) 8.9 L [place] % (Auto) 14.3 H Lymph # 0.8 L [place] # 1.3 H Seg Neutrophils % 76.5 H Seg Neuts % (Manual) Lymphocytes % (Manual) Seg Neutrophils # Seg Neutrophils # Man Lymphocytes # (Manual) Monocytes # (Manual) POC ABG pH ABG pH POC ABG pCO2 POC ABG pO2 ABG pO2 ABG HCO3 ABG Base Excess ABG Hemoglobin Oxyhemoglobin Sodium Potassium Chloride Carbon Dioxide BUN Creatinine Glucose POC Glucose 121 H 120 H Calcium Phosphorus Magnesium Direct Bilirubin AST Alkaline Phosphatase C-Reactive Protein Serum Total Protein Total Protein Albumin Prealbumin Neprk-6-Yjpafrhqh Prbiy-6-Upbfpybac Gamma Globulins PEP Interpretation Triglycerides Urine pH Urine Creatinine Urine Total Protein Vancomycin Trough Digoxin Crossmatch 10/28/19 10/28/19 10/28/19 07:19 12:07 18:21 WBC RBC Hgb Hct MCH MCHC RDW Plt Count Lymph % (Auto) [place] % (Auto) Lymph # [place] # Seg Neutrophils % Seg Neuts % (Manual) Lymphocytes % (Manual) Seg Neutrophils # Seg Neutrophils # Man Lymphocytes # (Manual) Monocytes # (Manual) POC ABG pH ABG pH POC ABG pCO2 POC ABG pO2 ABG pO2 ABG HCO3 ABG Base Excess ABG Hemoglobin Oxyhemoglobin Sodium Potassium Chloride Carbon Dioxide BUN 23 H Creatinine 0.5 L Glucose 129 H POC Glucose 127 H 130 H Calcium 8.0 L Phosphorus Magnesium Direct Bilirubin AST Alkaline Phosphatase C-Reactive Protein Serum Total Protein Total Protein Albumin Prealbumin Eywde-4-Mvqmchkdl Nzkwc-6-Libsvbtyr Gamma Globulins PEP Interpretation Triglycerides Urine pH Urine Creatinine Urine Total Protein Vancomycin Trough Digoxin Crossmatch 10/28/19 10/29/19 10/29/19 23:30 05:30 05:30 WBC 11.2 H RBC 3.36 L Hgb 9.7 L Hct 29.4 L MCH MCHC RDW 16.7 H Plt Count Lymph % (Auto) [place] % (Auto) 16.0 H Lymph # [place] # 1.8 H Seg Neutrophils % 70.2 H Seg Neuts % (Manual) Lymphocytes % (Manual) Seg Neutrophils # 7.9 H Seg Neutrophils # Man Lymphocytes # (Manual) Monocytes # (Manual) POC ABG pH ABG pH POC ABG pCO2 POC ABG pO2 ABG pO2 ABG HCO3 ABG Base Excess ABG Hemoglobin Oxyhemoglobin Sodium Potassium Chloride Carbon Dioxide BUN 23 H Creatinine 0.5 L Glucose POC Glucose 130 H Calcium 8.3 L Phosphorus Magnesium Direct Bilirubin AST Alkaline Phosphatase C-Reactive Protein Serum Total Protein Total Protein Albumin Prealbumin Pkknz-0-Gknweuvaf Gztfy-7-Stiuttlwh Gamma Globulins PEP Interpretation Triglycerides Urine pH Urine Creatinine Urine Total Protein Vancomycin Trough Digoxin Crossmatch 10/29/19 10/29/19 10/29/19 05:52 13:10 18:02 WBC RBC Hgb Hct MCH MCHC RDW Plt Count Lymph % (Auto) [place] % (Auto) Lymph # [place] # Seg Neutrophils % Seg Neuts % (Manual) Lymphocytes % (Manual) Seg Neutrophils # Seg Neutrophils # Man Lymphocytes # (Manual) Monocytes # (Manual) POC ABG pH ABG pH POC ABG pCO2 POC ABG pO2 ABG pO2 ABG HCO3 ABG Base Excess ABG Hemoglobin Oxyhemoglobin Sodium Potassium Chloride Carbon Dioxide BUN Creatinine Glucose POC Glucose 111 H 140 H 140 H Calcium Phosphorus Magnesium Direct Bilirubin AST Alkaline Phosphatase C-Reactive Protein Serum Total Protein Total Protein Albumin Prealbumin Qklfn-7-Kbwqftkia Olhkz-6-Aqhtpbibj Gamma Globulins PEP Interpretation Triglycerides Urine pH Urine Creatinine Urine Total Protein Vancomycin Trough Digoxin Crossmatch 10/29/19 10/30/19 10/30/19 23:58 01:05 05:15 WBC RBC Hgb Hct MCH MCHC RDW Plt Count Lymph % (Auto) [place] % (Auto) Lymph # [place] # Seg Neutrophils % Seg Neuts % (Manual) Lymphocytes % (Manual) Seg Neutrophils # Seg Neutrophils # Man Lymphocytes # (Manual) Monocytes # (Manual) POC ABG pH ABG pH POC ABG pCO2 62.0 H POC ABG pO2 168 H ABG pO2 ABG HCO3 ABG Base Excess ABG Hemoglobin Oxyhemoglobin Sodium 147 H Potassium Chloride 107.8 H Carbon Dioxide BUN 26 H Creatinine 0.5 L Glucose 139 H POC Glucose 161 H Calcium Phosphorus Magnesium 2.40 H Direct Bilirubin AST Alkaline Phosphatase C-Reactive Protein Serum Total Protein Total Protein Albumin Prealbumin Aqmbx-4-Cvhfdlods Frqqz-2-Srprbhgvh Gamma Globulins PEP Interpretation Triglycerides Urine pH Urine Creatinine Urine Total Protein Vancomycin Trough Digoxin Crossmatch 10/30/19 10/30/19 10/30/19 05:15 06:32 09:44 WBC 13.8 H RBC 3.59 L Hgb 10.1 L Hct 32.4 L MCH MCHC 31 L RDW 17.4 H Plt Count Lymph % (Auto) 11.2 L [place] % (Auto) 13.6 H Lymph # [place] # 1.9 H Seg Neutrophils % 75.1 H Seg Neuts % (Manual) Lymphocytes % (Manual) Seg Neutrophils # 10.4 H Seg Neutrophils # Man Lymphocytes # (Manual) Monocytes # (Manual) POC ABG pH ABG pH POC ABG pCO2 51.7 H POC ABG pO2 111 H ABG pO2 ABG HCO3 ABG Base Excess ABG Hemoglobin Oxyhemoglobin Sodium Potassium Chloride Carbon Dioxide BUN Creatinine Glucose POC Glucose 141 H Calcium Phosphorus Magnesium Direct Bilirubin AST Alkaline Phosphatase C-Reactive Protein Serum Total Protein Total Protein Albumin Prealbumin Cutob-1-Penteswzo Qswlc-5-Edasvijlb Gamma Globulins PEP Interpretation Triglycerides Urine pH Urine Creatinine Urine Total Protein Vancomycin Trough Digoxin Crossmatch 10/30/19 10/31/19 10/31/19 18:10 04:18 04:18 WBC 11.7 H RBC 3.11 L Hgb 9.0 L Hct 27.9 L MCH MCHC RDW 17.1 H Plt Count Lymph % (Auto) [place] % (Auto) Lymph # [place] # Seg Neutrophils % Seg Neuts % (Manual) Lymphocytes % (Manual) Seg Neutrophils # Seg Neutrophils # Man Lymphocytes # (Manual) Monocytes # (Manual) POC ABG pH ABG pH POC ABG pCO2 POC ABG pO2 ABG pO2 ABG HCO3 ABG Base Excess ABG Hemoglobin Oxyhemoglobin Sodium 148 H Potassium Chloride 108.7 H Carbon Dioxide BUN 37 H Creatinine 0.7 L Glucose 102 H POC Glucose 131 H Calcium Phosphorus Magnesium Direct Bilirubin AST Alkaline Phosphatase C-Reactive Protein Serum Total Protein Total Protein Albumin Prealbumin Jajli-9-Mbpnqxyqj Jyzeg-6-Mrdbzimju Gamma Globulins PEP Interpretation Triglycerides Urine pH Urine Creatinine Urine Total Protein Vancomycin Trough Digoxin Crossmatch 10/31/19 10/31/19 10/31/19 11:32 12:55 18:10 WBC RBC Hgb Hct MCH MCHC RDW Plt Count Lymph % (Auto) [place] % (Auto) Lymph # [place] # Seg Neutrophils % Seg Neuts % (Manual) Lymphocytes % (Manual) Seg Neutrophils # Seg Neutrophils # Man Lymphocytes # (Manual) Monocytes # (Manual) POC ABG pH ABG pH POC ABG pCO2 57.9 H POC ABG pO2 135 H ABG pO2 ABG HCO3 ABG Base Excess ABG Hemoglobin Oxyhemoglobin Sodium Potassium Chloride Carbon Dioxide BUN Creatinine Glucose POC Glucose 120 H Calcium Phosphorus Magnesium Direct Bilirubin AST Alkaline Phosphatase C-Reactive Protein Serum Total Protein Total Protein Albumin Prealbumin Felxa-4-Vciksgyxx Jxukh-6-Zlviecrxl Gamma Globulins PEP Interpretation Triglycerides Urine pH Urine Creatinine Urine Total Protein Vancomycin Trough 41.7 H Digoxin Crossmatch 10/31/19 11/01/19 11/01/19 23:08 05:30 05:30 WBC 14.6 H RBC 3.13 L Hgb 8.9 L Hct 27.7 L MCH MCHC RDW 17.0 H Plt Count Lymph % (Auto) [place] % (Auto) Lymph # [place] # Seg Neutrophils % Seg Neuts % (Manual) Lymphocytes % (Manual) Seg Neutrophils # Seg Neutrophils # Man Lymphocytes # (Manual) Monocytes # (Manual) POC ABG pH ABG pH POC ABG pCO2 POC ABG pO2 ABG pO2 ABG HCO3 ABG Base Excess ABG Hemoglobin Oxyhemoglobin Sodium 149 H Potassium Chloride 109.0 H Carbon Dioxide BUN 26 H Creatinine 0.7 L Glucose 129 H POC Glucose 109 H Calcium Phosphorus Magnesium Direct Bilirubin AST Alkaline Phosphatase C-Reactive Protein Serum Total Protein Total Protein Albumin Prealbumin Ojfzj-4-Lxwzxtihk Ixjnb-0-Tyvolqlsn Gamma Globulins PEP Interpretation Triglycerides Urine pH Urine Creatinine Urine Total Protein Vancomycin Trough Digoxin Crossmatch 11/01/19 11/01/19 11/01/19 06:09 06:10 11:52 WBC RBC Hgb Hct MCH MCHC RDW Plt Count Lymph % (Auto) [place] % (Auto) Lymph # [place] # Seg Neutrophils % Seg Neuts % (Manual) Lymphocytes % (Manual) Seg Neutrophils # Seg Neutrophils # Man Lymphocytes # (Manual) Monocytes # (Manual) POC ABG pH ABG pH POC ABG pCO2 51.3 H POC ABG pO2 71 L ABG pO2 ABG HCO3 ABG Base Excess ABG Hemoglobin Oxyhemoglobin Sodium Potassium Chloride Carbon Dioxide BUN Creatinine Glucose POC Glucose 113 H 106 H Calcium Phosphorus Magnesium Direct Bilirubin AST Alkaline Phosphatase C-Reactive Protein Serum Total Protein Total Protein Albumin Prealbumin Eswlr-6-Txtoyxiym Umcun-1-Yfxvezdpq Gamma Globulins PEP Interpretation Triglycerides Urine pH Urine Creatinine Urine Total Protein Vancomycin Trough Digoxin Crossmatch 11/01/19 11/02/19 11/02/19 18:18 03:40 03:40 WBC RBC 2.36 L Hgb 7.2 L Hct 20.8 L D MCH MCHC 35 H RDW 16.8 H Plt Count Lymph % (Auto) [place] % (Auto) Lymph # [place] # Seg Neutrophils % Seg Neuts % (Manual) Lymphocytes % (Manual) Seg Neutrophils # Seg Neutrophils # Man Lymphocytes # (Manual) Monocytes # (Manual) POC ABG pH ABG pH POC ABG pCO2 POC ABG pO2 ABG pO2 ABG HCO3 ABG Base Excess ABG Hemoglobin Oxyhemoglobin Sodium 157 H D Potassium 3.0 L D Chloride 117.2 H Carbon Dioxide BUN 23 H Creatinine 0.6 L Glucose 101 H POC Glucose 120 H Calcium 6.4 L D Phosphorus Magnesium Direct Bilirubin AST Alkaline Phosphatase C-Reactive Protein Serum Total Protein Total Protein Albumin Prealbumin Ulbsf-4-Ohbqwueur Ivcnx-1-Xggglbvcn Gamma Globulins PEP Interpretation Triglycerides Urine pH Urine Creatinine Urine Total Protein Vancomycin Trough Digoxin Crossmatch 11/02/19 11/02/19 11/02/19 04:48 05:30 12:43 WBC RBC Hgb Hct MCH MCHC RDW Plt Count Lymph % (Auto) [place] % (Auto) Lymph # [place] # Seg Neutrophils % Seg Neuts % (Manual) Lymphocytes % (Manual) Seg Neutrophils # Seg Neutrophils # Man Lymphocytes # (Manual) Monocytes # (Manual) POC ABG pH ABG pH POC ABG pCO2 50.1 H POC ABG pO2 74 L ABG pO2 ABG HCO3 ABG Base Excess ABG Hemoglobin Oxyhemoglobin Sodium 149 H D Potassium Chloride 110.0 H Carbon Dioxide BUN 23 H Creatinine 0.6 L Glucose POC Glucose 109 H Calcium 8.1 L D Phosphorus Magnesium 2.40 H Direct Bilirubin AST Alkaline Phosphatase C-Reactive Protein Serum Total Protein Total Protein Albumin Prealbumin Nlqzy-6-Ustzphnge Tnepq-7-Prntcnlxu Gamma Globulins PEP Interpretation Triglycerides Urine pH Urine Creatinine Urine Total Protein Vancomycin Trough Digoxin Crossmatch 11/03/19 11/03/19 11/03/19 03:42 03:42 04:13 WBC RBC 2.93 L Hgb 8.5 L Hct 25.8 L MCH MCHC RDW 16.9 H Plt Count Lymph % (Auto) [place] % (Auto) Lymph # [place] # Seg Neutrophils % Seg Neuts % (Manual) Lymphocytes % (Manual) Seg Neutrophils # Seg Neutrophils # Man Lymphocytes # (Manual) Monocytes # (Manual) POC ABG pH 7.540 H ABG pH POC ABG pCO2 POC ABG pO2 51 L ABG pO2 ABG HCO3 ABG Base Excess ABG Hemoglobin Oxyhemoglobin Sodium 147 H Potassium 3.5 L D Chloride 108.6 H Carbon Dioxide BUN Creatinine 0.6 L Glucose 109 H POC Glucose Calcium 8.3 L Phosphorus Magnesium Direct Bilirubin AST Alkaline Phosphatase C-Reactive Protein Serum Total Protein Total Protein Albumin Prealbumin Zopmb-9-Heccwpppy Mqyui-1-Eqkczcnrc Gamma Globulins PEP Interpretation Triglycerides Urine pH Urine Creatinine Urine Total Protein Vancomycin Trough Digoxin Crossmatch 11/03/19 11/03/19 11/03/19 04:28 12:04 23:02 WBC RBC Hgb Hct MCH MCHC RDW Plt Count Lymph % (Auto) [place] % (Auto) Lymph # [place] # Seg Neutrophils % Seg Neuts % (Manual) Lymphocytes % (Manual) Seg Neutrophils # Seg Neutrophils # Man Lymphocytes # (Manual) Monocytes # (Manual) POC ABG pH ABG pH POC ABG pCO2 45.4 H POC ABG pO2 ABG pO2 ABG HCO3 ABG Base Excess ABG Hemoglobin Oxyhemoglobin Sodium Potassium Chloride Carbon Dioxide BUN Creatinine Glucose POC Glucose 109 H 111 H Calcium Phosphorus Magnesium Direct Bilirubin AST Alkaline Phosphatase C-Reactive Protein Serum Total Protein Total Protein Albumin Prealbumin Cghyj-4-Sjtsqdrjn Dbllo-9-Kivjdzobj Gamma Globulins PEP Interpretation Triglycerides Urine pH Urine Creatinine Urine Total Protein Vancomycin Trough Digoxin Crossmatch 11/04/19 11/04/19 11/04/19 05:00 05:00 05:19 WBC RBC 2.96 L Hgb 8.6 L Hct 25.5 L MCH MCHC RDW 16.7 H Plt Count Lymph % (Auto) Pershing % (Auto) Lymph # Pershing # Seg Neutrophils % Seg Neuts % (Manual) Lymphocytes % (Manual) Seg Neutrophils # Seg Neutrophils # Man Lymphocytes # (Manual) Monocytes # (Manual) POC ABG pH ABG pH POC ABG pCO2 POC ABG pO2 ABG pO2 ABG HCO3 ABG Base Excess ABG Hemoglobin Oxyhemoglobin Sodium Potassium 3.5 L Chloride Carbon Dioxide BUN Creatinine 0.5 L Glucose 111 H POC Glucose 106 H Calcium 8.1 L Phosphorus Magnesium Direct Bilirubin AST Alkaline Phosphatase C-Reactive Protein Serum Total Protein Total Protein Albumin Prealbumin Wcffu-8-Tlffvyujs Udfsw-3-Ivipekyjv Gamma Globulins PEP Interpretation Triglycerides Urine pH Urine Creatinine Urine Total Protein Vancomycin Trough Digoxin Crossmatch 1211/05/19 11/05/19 12:40 00:28 04:19 WBC 12.4 H RBC 2.98 L Hgb 8.5 L Hct 25.5 L MCH MCHC RDW 16.6 H Plt Count Lymph % (Auto) [place]hing % (Auto) Lymph # [place]hing # Seg Neutrophils % Seg Neuts % (Manual) Lymphocytes % (Manual) Seg Neutrophils # Seg Neutrophils # Man Lymphocytes # (Manual) Monocytes # (Manual) POC ABG pH ABG pH POC ABG pCO2 POC ABG pO2 ABG pO2 ABG HCO3 ABG Base Excess ABG Hemoglobin Oxyhemoglobin Sodium Potassium Chloride Carbon Dioxide BUN Creatinine Glucose POC Glucose 109 H 132 H Calcium Phosphorus Magnesium Direct Bilirubin AST Alkaline Phosphatase C-Reactive Protein Serum Total Protein Total Protein Albumin Prealbumin Mmzio-8-Gkbxfspoj Jwvsn-3-Pjmgyvjur Gamma Globulins PEP Interpretation Triglycerides Urine pH Urine Creatinine Urine Total Protein Vancomycin Trough Digoxin Crossmatch 11/05/19 11/05/19 11/05/19 04:19 05:40 13:14 WBC RBC Hgb Hct MCH MCHC RDW Plt Count Lymph % (Auto) [place]hing % (Auto) Lymph # [place]hing # Seg Neutrophils % Seg Neuts % (Manual) Lymphocytes % (Manual) Seg Neutrophils # Seg Neutrophils # Man Lymphocytes # (Manual) Monocytes # (Manual) POC ABG pH ABG pH POC ABG pCO2 POC ABG pO2 ABG pO2 ABG HCO3 ABG Base Excess ABG Hemoglobin Oxyhemoglobin Sodium Potassium 3.4 L Chloride Carbon Dioxide BUN Creatinine 0.4 L Glucose 106 H POC Glucose 136 H 145 H Calcium 8.2 L Phosphorus Magnesium Direct Bilirubin AST Alkaline Phosphatase C-Reactive Protein Serum Total Protein Total Protein Albumin Prealbumin Nsgao-1-Eczwketcy Qetqz-4-Tgzjlgmlo Gamma Globulins PEP Interpretation Triglycerides Urine pH Urine Creatinine Urine Total Protein Vancomycin Trough Digoxin Crossmatch 11/05/19 11/05/19 11/06/19 18:29 23:42 05:00 WBC 12.2 H RBC 2.89 L Hgb 8.2 L Hct 24.9 L MCH MCHC RDW 16.4 H Plt Count Lymph % (Auto) [place] % (Auto) Lymph # [place] # Seg Neutrophils % Seg Neuts % (Manual) Lymphocytes % (Manual) Seg Neutrophils # Seg Neutrophils # Man Lymphocytes # (Manual) Monocytes # (Manual) POC ABG pH ABG pH POC ABG pCO2 POC ABG pO2 ABG pO2 ABG HCO3 ABG Base Excess ABG Hemoglobin Oxyhemoglobin Sodium Potassium Chloride Carbon Dioxide BUN Creatinine Glucose POC Glucose 138 H 117 H Calcium Phosphorus Magnesium Direct Bilirubin AST Alkaline Phosphatase C-Reactive Protein Serum Total Protein Total Protein Albumin Prealbumin Kqeit-1-Bnsmebyen Numfp-6-Gobxebqwz Gamma Globulins PEP Interpretation Triglycerides Urine pH Urine Creatinine Urine Total Protein Vancomycin Trough Digoxin Crossmatch 11/06/19 11/06/19 11/06/19 05:00 05:22 17:39 WBC RBC Hgb Hct MCH MCHC RDW Plt Count Lymph % (Auto) [place]hing % (Auto) Lymph # [place] # Seg Neutrophils % Seg Neuts % (Manual) Lymphocytes % (Manual) Seg Neutrophils # Seg Neutrophils # Man Lymphocytes # (Manual) Monocytes # (Manual) POC ABG pH ABG pH POC ABG pCO2 POC ABG pO2 ABG pO2 ABG HCO3 ABG Base Excess ABG Hemoglobin Oxyhemoglobin Sodium Potassium Chloride Carbon Dioxide BUN Creatinine 0.4 L Glucose 114 H POC Glucose 121 H 110 H Calcium 8.2 L Phosphorus Magnesium Direct Bilirubin AST Alkaline Phosphatase C-Reactive Protein Serum Total Protein Total Protein Albumin Prealbumin Uzulr-9-Zuksrnxdv Hokjq-1-Hynwjlcgc Gamma Globulins PEP Interpretation Triglycerides Urine pH Urine Creatinine Urine Total Protein Vancomycin Trough Digoxin Crossmatch 11/06/19 11/07/19 11/07/19 23:29 04:06 04:06 WBC 13.0 H RBC 2.80 L Hgb 7.9 L Hct 24.0 L MCH MCHC RDW 16.5 H Plt Count Lymph % (Auto) 7.0 L [place]hing % (Auto) Lymph # 0.9 L Pershing # Seg Neutrophils % 86.3 H Seg Neuts % (Manual) Lymphocytes % (Manual) Seg Neutrophils # 11.2 H Seg Neutrophils # Man Lymphocytes # (Manual) Monocytes # (Manual) POC ABG pH ABG pH POC ABG pCO2 POC ABG pO2 ABG pO2 ABG HCO3 ABG Base Excess ABG Hemoglobin Oxyhemoglobin Sodium Potassium Chloride Carbon Dioxide BUN Creatinine 0.4 L Glucose 110 H POC Glucose 113 H Calcium 8.2 L Phosphorus Magnesium Direct Bilirubin AST Alkaline Phosphatase C-Reactive Protein Serum Total Protein Total Protein Albumin Prealbumin Lqtcw-6-Puzsousyf Lrtwo-0-Lsipwwgbo Gamma Globulins PEP Interpretation Triglycerides Urine pH Urine Creatinine Urine Total Protein Vancomycin Trough Digoxin Crossmatch 11/07/19 11/07/1911/07/19 05:43 12:47 18:19 WBC RBC Hgb Hct MCH MCHC RDW Plt Count Lymph % (Auto) [place]hing % (Auto) Lymph # [place] # Seg Neutrophils % Seg Neuts % (Manual) Lymphocytes % (Manual) Seg Neutrophils # Seg Neutrophils # Man Lymphocytes # (Manual) Monocytes # (Manual) POC ABG pH ABG pH POC ABG pCO2 POC ABG pO2 ABG pO2 ABG HCO3 ABG Base Excess ABG Hemoglobin Oxyhemoglobin Sodium Potassium Chloride Carbon Dioxide BUN Creatinine Glucose POC Glucose 114 H 120 H 112 H Calcium Phosphorus Magnesium Direct Bilirubin AST Alkaline Phosphatase C-Reactive Protein Serum Total Protein Total Protein Albumin Prealbumin Lwlex-4-Fcxqgahym Dmctk-9-Vdvgwcckj Gamma Globulins PEP Interpretation Triglycerides Urine pH Urine Creatinine Urine Total Protein Vancomycin Trough Digoxin Crossmatch 11/08/19 11/08/19 11/08/19 03:45 03:45 11:43 WBC 12.7 H RBC 2.82 L Hgb 7.8 L Hct 24.4 L MCH MCHC RDW 16.5 H Plt Count Lymph % (Auto) 9.4 L [place]hing % (Auto) Lymph # Pershing # 0.9 H Seg Neutrophils % 83.0 H Seg Neuts % (Manual) Lymphocytes % (Manual) Seg Neutrophils # 10.6 H Seg Neutrophils # Man Lymphocytes # (Manual) Monocytes # (Manual) POC ABG pH ABG pH POC ABG pCO2 POC ABG pO2 ABG pO2 ABG HCO3 ABG Base Excess ABG Hemoglobin Oxyhemoglobin Sodium Potassium Chloride Carbon Dioxide BUN Creatinine 0.4 L Glucose 107 H POC Glucose 118 H Calcium Phosphorus Magnesium Direct Bilirubin AST Alkaline Phosphatase C-Reactive Protein Serum Total Protein Total Protein Albumin Prealbumin Mnxup-9-Qerufjopm Ezhin-8-Zpagzelug Gamma Globulins PEP Interpretation Triglycerides Urine pH Urine Creatinine Urine Total Protein Vancomycin Trough Digoxin Crossmatch 11/08/19 11/09/19 11/09/19 23:45 12:41 12:56 WBC RBC Hgb Hct MCH MCHC RDW Plt Count Lymph % (Auto) [place]hing % (Auto) Lymph # [place] # Seg Neutrophils % Seg Neuts % (Manual) Lymphocytes % (Manual) Seg Neutrophils # Seg Neutrophils # Man Lymphocytes # (Manual) Monocytes # (Manual) POC ABG pH ABG pH POC ABG pCO2 POC ABG pO2 ABG pO2 ABG HCO3 ABG Base Excess ABG Hemoglobin Oxyhemoglobin Sodium Potassium Chloride Carbon Dioxide BUN Creatinine Glucose POC Glucose 113 H 107 H 122 H Calcium Phosphorus Magnesium Direct Bilirubin AST Alkaline Phosphatase C-Reactive Protein Serum Total Protein Total Protein Albumin Prealbumin Nhfac-0-Mivjtvbmr Vqpeq-8-Memxkykej Gamma Globulins PEP Interpretation Triglycerides Urine pH Urine Creatinine Urine Total Protein Vancomycin Trough Digoxin Crossmatch 11/10/19 11/10/19 11/11/19 05:12 12:20 12:13 WBC RBC Hgb Hct MCH MCHC RDW Plt Count Lymph % (Auto) [place] % (Auto) Lymph # [place] # Seg Neutrophils % Seg Neuts % (Manual) Lymphocytes % (Manual) Seg Neutrophils # Seg Neutrophils # Man Lymphocytes # (Manual) Monocytes # (Manual) POC ABG pH ABG pH POC ABG pCO2 POC ABG pO2 ABG pO2 ABG HCO3 ABG Base Excess ABG Hemoglobin Oxyhemoglobin Sodium Potassium Chloride Carbon Dioxide BUN Creatinine Glucose POC Glucose 127 H 125 H 107 H Calcium Phosphorus Magnesium Direct Bilirubin AST Alkaline Phosphatase C-Reactive Protein Serum Total Protein Total Protein Albumin Prealbumin Fnohi-3-Dbutndwhi Widtj-0-Khcrxepap Gamma Globulins PEP Interpretation Triglycerides Urine pH Urine Creatinine Urine Total Protein Vancomycin Trough Digoxin Crossmatch 11/11/19 11/11/19 11/12/19 17:29 22:20 06:00 WBC RBC 2.77 L Hgb 7.8 L Hct 23.4 L MCH MCHC RDW 16.6 H Plt Count Lymph % (Auto) 11.9 L Pershing % (Auto) 8.9 H Lymph # Pershing # 0.9 H Seg Neutrophils % 78.2 H Seg Neuts % (Manual) Lymphocytes % (Manual) Seg Neutrophils # 8.2 H Seg Neutrophils # Man Lymphocytes # (Manual) Monocytes # (Manual) POC ABG pH ABG pH POC ABG pCO2 POC ABG pO2 ABG pO2 ABG HCO3 ABG Base Excess ABG Hemoglobin Oxyhemoglobin Sodium Potassium Chloride Carbon Dioxide BUN Creatinine Glucose POC Glucose 120 H 109 H Calcium Phosphorus Magnesium Direct Bilirubin AST Alkaline Phosphatase C-Reactive Protein Serum Total Protein Total Protein Albumin Prealbumin Panfa-9-Dyfsjlfej Rskfo-1-Ouivpdpbj Gamma Globulins PEP Interpretation Triglycerides Urine pH Urine Creatinine Urine Total Protein Vancomycin Trough Digoxin Crossmatch 11/12/19 11/12/19 11/12/19 07:52 11:58 23:44 WBC RBC Hgb Hct MCH MCHC RDW Plt Count Lymph % (Auto) [place]hing % (Auto) Lymph # [place]hing # Seg Neutrophils % Seg Neuts % (Manual) Lymphocytes % (Manual) Seg Neutrophils # Seg Neutrophils # Man Lymphocytes # (Manual) Monocytes # (Manual) POC ABG pH ABG pH POC ABG pCO2 POC ABG pO2 ABG pO2 ABG HCO3 ABG Base Excess ABG Hemoglobin Oxyhemoglobin Sodium Potassium Chloride Carbon Dioxide BUN Creatinine Glucose POC Glucose 120 H 140 H 116 H Calcium Phosphorus Magnesium Direct Bilirubin AST Alkaline Phosphatase C-Reactive Protein Serum Total Protein Total Protein Albumin Prealbumin Vrkgw-3-Bkrtprnrn Qvkpz-6-Xpmhkfbdm Gamma Globulins PEP Interpretation Triglycerides Urine pH Urine Creatinine Urine Total Protein Vancomycin Trough Digoxin Crossmatch 11/13/19 11/13/19 11/13/19 04:33 04:33 13:43 WBC 11.2 H RBC 2.90 L Hgb 8.1 L Hct 24.5 L MCH MCHC RDW 16.5 H Plt Count Lymph % (Auto) 10.1 L Pershing % (Auto) 7.6 H Lymph # 1.1 L Pershing # 0.9 H Seg Neutrophils % 81.1 H Seg Neuts % (Manual) Lymphocytes % (Manual) Seg Neutrophils # 9.1 H Seg Neutrophils # Man Lymphocytes # (Manual) Monocytes # (Manual) POC ABG pH ABG pH POC ABG pCO2 POC ABG pO2 ABG pO2 ABG HCO3 ABG Base Excess ABG Hemoglobin Oxyhemoglobin Sodium 135 L Potassium Chloride 91.9 L Carbon Dioxide BUN Creatinine 0.6 L Glucose POC Glucose 122 H Calcium Phosphorus Magnesium Direct Bilirubin AST Alkaline Phosphatase C-Reactive Protein Serum Total Protein Total Protein Albumin Prealbumin Lsjyc-6-Hzxsjnbmi Vjdus-8-Dmmofybgk Gamma Globulins PEP Interpretation Triglycerides Urine pH Urine Creatinine Urine Total Protein Vancomycin Trough Digoxin Crossmatch 11/13/19 11/14/19 11/15/19 17:57 12:35 07:10 WBC 14.8 H RBC 2.89 L Hgb 7.8 L Hct 24.2 L MCH 27 L MCHC RDW 16.9 H Plt Count Lymph % (Auto) [place]hing % (Auto) Lymph # Pershing # Seg Neutrophils % Seg Neuts % (Manual) Lymphocytes % (Manual) Seg Neutrophils # Seg Neutrophils # Man Lymphocytes # (Manual) Monocytes # (Manual) POC ABG pH ABG pH POC ABG pCO2 POC ABG pO2 ABG pO2 ABG HCO3 ABG Base Excess ABG Hemoglobin Oxyhemoglobin Sodium Potassium Chloride Carbon Dioxide BUN Creatinine Glucose POC Glucose 127 H 148 H Calcium Phosphorus Magnesium Direct Bilirubin AST Alkaline Phosphatase C-Reactive Protein Serum Total Protein Total Protein Albumin Prealbumin Isgai-6-Ievuugjac Dcjrm-9-Hfevoxfrx Gamma Globulins PEP Interpretation Triglycerides Urine pH Urine Creatinine Urine Total Protein Vancomycin Trough Digoxin Crossmatch 11/15/19 11/15/19 11/16/19 07:10 20:16 10:26 WBC 14.4 H RBC 2.79 L Hgb 7.6 L Hct 23.5 L MCH 27 L MCHC RDW 17.0 H Plt Count Lymph % (Auto) [place]hing % (Auto) Lymph # Pershing # Seg Neutrophils % Seg Neuts % (Manual) Lymphocytes % (Manual) Seg Neutrophils # Seg Neutrophils # Man Lymphocytes # (Manual) Monocytes # (Manual) POC ABG pH ABG pH POC ABG pCO2 POC ABG pO2 ABG pO2 ABG HCO3 ABG Base Excess ABG Hemoglobin Oxyhemoglobin Sodium 133 L 136 L Potassium 3.5 L Chloride 93.7 L 97.4 L Carbon Dioxide BUN Creatinine 0.6 L 0.6 L Glucose 130 H POC Glucose Calcium Phosphorus Magnesium Direct Bilirubin AST Alkaline Phosphatase C-Reactive Protein Serum Total Protein Total Protein Albumin Prealbumin Ujolp-3-Smvtatuep [place]-6-Qqrroacah Gamma Globulins PEP Interpretation Triglycerides Urine pH Urine Creatinine Urine Total Protein Vancomycin Trough Digoxin Crossmatch 11/16/19 11/17/19 11/17/19 13:01 00:40 07:22 WBC 14.0 H RBC 2.71 L Hgb 7.4 L Hct 22.8 L MCH 27 L MCHC RDW 17.2 H Plt Count Lymph % (Auto) [place]hing % (Auto) Lymph # Pershing # Seg Neutrophils % Seg Neuts % (Manual) Lymphocytes % (Manual) Seg Neutrophils # Seg Neutrophils # Man Lymphocytes # (Manual) Monocytes # (Manual) POC ABG pH ABG pH POC ABG pCO2 POC ABG pO2 ABG pO2 ABG HCO3 ABG Base Excess ABG Hemoglobin Oxyhemoglobin Sodium Potassium Chloride Carbon Dioxide BUN Creatinine Glucose POC Glucose 117 H 124 H Calcium Phosphorus Magnesium Direct Bilirubin AST Alkaline Phosphatase C-Reactive Protein Serum Total Protein Total Protein Albumin Prealbumin Rcqsa-6-Nkazzljyf Bcrci-7-Tesrdmqru Gamma Globulins PEP Interpretation Triglycerides Urine pH Urine Creatinine Urine Total Protein Vancomycin Trough Digoxin Crossmatch 11/17/19 11/17/19 11/17/19 07:22 12:00 17:57 WBC RBC Hgb Hct MCH MCHC RDW Plt Count Lymph % (Auto) [place]hing % (Auto) Lymph # [place]hing # Seg Neutrophils % Seg Neuts % (Manual) Lymphocytes % (Manual) Seg Neutrophils # Seg Neutrophils # Man Lymphocytes # (Manual) Monocytes # (Manual) POC ABG pH ABG pH POC ABG pCO2 POC ABG pO2 ABG pO2 ABG HCO3 ABG Base Excess ABG Hemoglobin Oxyhemoglobin Sodium 136 L Potassium Chloride 96.1 L Carbon Dioxide BUN 7 L Creatinine 0.5 L Glucose POC Glucose 130 H 111 H Calcium Phosphorus Magnesium Direct Bilirubin AST Alkaline Phosphatase C-Reactive Protein Serum Total Protein Total Protein Albumin Prealbumin Cisgd-7-Tvnxbmtvr Xnonl-9-Xsusibimx Gamma Globulins PEP Interpretation Triglycerides Urine pH Urine Creatinine Urine Total Protein Vancomycin Trough Digoxin Crossmatch 11/18/19 11/18/19 06:03 12:12 WBC RBC Hgb Hct MCH MCHC RDW Plt Count Lymph % (Auto) Pershing % (Auto) Lymph # Pershing # Seg Neutrophils % Seg Neuts % (Manual) Lymphocytes % (Manual) Seg Neutrophils # Seg Neutrophils # Man Lymphocytes # (Manual) Monocytes # (Manual) POC ABG pH ABG pH POC ABG pCO2 POC ABG pO2 ABG pO2 ABG HCO3 ABG Base Excess ABG Hemoglobin Oxyhemoglobin Sodium Potassium Chloride Carbon Dioxide BUN Creatinine Glucose POC Glucose 113 H 124 H Calcium Phosphorus Magnesium Direct Bilirubin AST Alkaline Phosphatase C-Reactive Protein Serum Total Protein Total Protein Albumin Prealbumin Umwmk-5-Rrjedfmfw Didiw-4-Htdstabqg Gamma Globulins PEP Interpretation Triglycerides Urine pH Urine Creatinine Urine Total Protein Vancomycin Trough Digoxin Crossmatch
[2019-11-18] MEDS: HYDROcodone/APAP 7.5-325MG-15ML ORAL LIQD PO PRN (18:20)
[2019-11-18] MEDS: HYDROmorphone 2 MG/1 ML INJ IV PRN (22:04)
[2019-11-18] MEDS: ENOXAPARIN 40 MG/0.4 ML INJ SUB-Q SCH (22:04)
[2019-11-19] MEDS: INSULIN LISPRO 100 UNIT/ML SUB-Q SCH ×4 (00:35→17:27)
[2019-11-19] MEDS: IPRATROPIUM/ALBUTEROL SULFATE 3 ML AMPUL.NEB IH SCH ×4 (02:07→20:32)
[2019-11-19] MEDS: METOPROLOL TARTRATE 50 MG TAB PO SCH ×3 (06:52→22:26)
[2019-11-19] MEDS: HYDROcodone/APAP 7.5-325MG-15ML ORAL LIQD PO PRN ×2 (09:16→13:05)
[2019-11-19] MEDS: LISINOPRIL 20 MG TAB PO SCH (09:17)
[2019-11-19] MEDS: PANTOPRAZOLE 40 MG INJ IV SCH (09:17)
[2019-11-19] MEDS: CITALOPRAM 20 MG TAB PO SCH (09:17)
[2019-11-19] MEDS: ARFORMOTEROL 15 MCG/2 ML NEBU IH SCH ×2 (10:34→20:32)
[2019-11-19] MEDS: BUDESONIDE 0.5 MG/2 ML NEBU IH SCH ×2 (10:34→20:32)
[2019-11-19] MEDS: AMIODARONE 200 MG TAB PO SCH (10:36)
[2019-11-19] MEDS: HYDROmorphone 2 MG/1 ML INJ IV PRN (10:41)
--- NOTE | 2019-11-19 11:03 | Progress Note ---
Assessment and Plan - Patient Problems (1) Dehiscence of closure of fascia, superficial or muscular Current Visit: No Status: Acute Qualifiers: Encounter type: initial encounter Qualified Code(s): T81.32XA - Disruption of internal operation (surgical) wound, not elsewhere classified, initial encounter Plan to address problem: Pt stable. s/p ex lap with closure of abdominal wall and wound vac placement (10/05) - POD#45; s/p Re-exploration, washout, transection of colon, Abthera placement - 10/13 - POD#37; s/p abd washout, partial omentectomy, partial colectomy with colostomy - 10/16 POD#34. s/p abd washout, feeding tube placement, AbThera placement - 10/19 - POD#31; Abdominal washout and closure - 10/22 - POD#28 Patient appears stable. Rec: 1) Neuro - self-extubated 11/04. 2) CV - BP normal today 3) Resp - On NC. Small bore CT on left - removed 11/02. 4) GI - Ostomy looks good. Functioning. Sump drains - Right drain was accidentally pulled out (10/30). Left one is still functioning. New small bore catheter placed 10/30 - moderate output after drain was stripped. Has appeared like stool. looking thinner and more yellow today. Plan to connect both to wall suction - continuous. Output slowly trending down. Appears dry today. Asked that tubing be changed so that we can see if there is something still draining. Otherwise, may remove soon. Midline drain - seems to be working well. may eventually become main drain and we can remove the two left sided drains if their output is minimal. Wound Vac - wound looked good on last check. continue wound vac. Ostomy - functioning now. Bag full of stool and air. Gastric Port - May be used as needed for feeds or meds 5) - BUN/Cr stable. 6) ID - Abx per ID. Enterococcus on cultures. If patient has worsening labs/vitals, then rescan and place additional drains as appropriate. Discussed Abx plan with Dr. Lorenzo. I am ok with trial off Abx, 7) Nutrition - Tube feeds on hold due to clogged feeding port. As patient is tolerating regular diet, would continue to hold TFs and check weekly prealbumin to verify that he is getting enough calories. Passed Speech Eval. 8) DVT prophylaxis - SCDs. Lovenox 9) Family -sisters at bedside. 10) PT - will need rehab. 11) Dispo - Ok for transfer to rehab from my perspective. Await Rehab decision on acceptance. Note: Spoke with [place] surgeon on 11/01/19 about possible transfer. They reviewed the notes that were sent and we discussed the case. They felt that they had nothing else to offer. They agreed with our management. Also agreed that another exploration should not be done. If needed, additional drains can be placed. They did suggest putting a [place] tube in the rectum to decompress that area. (That has been done). This conversation was communicated to the . Please call with questions. Subjective Date of service: 11/19/19 Patient Reports: Positive: tolerating a regular diet, bowel movement, other (complains of pain from silk tape removal). Negative: nausea, vomiting Objective Vital Signs - 12hr 11/19/19 11/19/19 11/19/19 00:12 04:57 06:52 Temperature 98.4 F 98.0 F Pulse Rate 80 84 84 Pulse Rate [ Anterior Bilateral Throughout] Respiratory 18 18 Rate Respiratory Rate [Anterior Bilateral Throughout] Blood Pressure 104/56 105/58 105/58 O2 Sat by Pulse 89 91 Oximetry 11/19/19 11/19/19 11/19/19 09:17 10:33 10:34 Temperature Pulse Rate 84 Pulse Rate [ 94 H Anterior Bilateral Throughout] Respiratory Rate Respiratory 20 Rate [Anterior Bilateral Throughout] Blood Pressure 105/58 O2 Sat by Pulse 97 Oximetry - General physical appearance no distress, no pain, obese, other (looks well) - Eyes normal occular movement - Respiratory normal expansion, normal respiratory effort - Abdomen soft, tender (around midline and drains. ), other (appears as though the sump drain may be dry now. ) - Integumentary no rash, no growths, no abnormal pigmentation - Psychiatric oriented to time, oriented to person, oriented to place, speech is normal, memory intact - Labs 11/17/19 07:22 11/17/19 07:22
--- NOTE | 2019-11-19 14:01 | Progress Note ---
Assessment and Plan 54 y/o male with anastomic leak 11/19/19: Pulm status stable. Will see as needed. 11/12/19: Spoke with surgery this am. Currently pleased with progress. Reviewed IR note, and they plan to remove CT today. Continue IS. Will speak with CM about looking into rehabs directly from [facility] as oppose to transferring to the floor first. 11/06: Chest tube intact. No air leak. Will ask IR if catheter can be pulled out normally (i.e. not some form of tunneled catheter). If so will have them take it out later this week. If [facility] beds available, good candidate for there, likely not quite ready for floor yet. 11/04: Stable self extubation. Continue chest tube to suction. Will likely start waterseal tomorrow. Goad maybe to get CT out Tuesday. All other drains per surgery. Encouraged use of IS regularly at the bedside and suctioning as needed per . 11/03: Looks clinically better. Na was better on repeat labs. Spoke with and surgery to update them both. Most likely will attempt extubation in the am. Will hold feeds for about an hour in the morning prior to extubation then restart. 11/02: Repeat labs this am. Hard time believing that 2 liters of normal saline made his sodium increase that much. Also, once i discuss with surgery, may consider giving more blood. Will also hold tube feeds briefly as well. In case any procedures. Lovenox held last night. Continue vent support 11/01: Spoke with Dr. Krause this am and understand his concerns. Have started the transfer process. Most ICU's throughout the city are on diversion or full. [place] has received his Facesheet and we are awaiting to hear back from them. CXR is clear. Minimal vent settings. Will continue supportive care for now. Follow up any new ID recs given increasing white and fever. 10/31: Will check CXR tomorrow. Continue chest tube to suction. Will likely stay in until extubated. Continue drains. Explained to staff to be extremely careful with these drains so that they do not come out. 10/30: Acute on chronic respiratory failure requiring reintubation. Appreciate Anesthesia assistance as he was a difficult intubation when we had to change his tube out about 1 week ago. Will continue on 100% until after Scans and then start to wean back down. CXR yesterday looked like pulmonary edema but improved today with positive pressure. Continue supportive care and await results of sca ns. 10/29: Discussed today on rounds. Patient had some issues over the weekend with the ICE chips and liquids. Will obtain speech consult/eval prior to restarting clears today. Spoke with nutrition and they will adjust tube feeds with new goal. Once at goal will start to taper off TPN. ordered Incentive madhu to bedside. Will also restart home dose of elaine today. pain control and drainage m onitoring. Will continue ICU care. 10/26: Patient stable overall. Not ready for floor. Would be ok with step down if beds are needed. If spikes temp again will order blood cultures x2, urine culture, UA and repeat CXR. Gave an additional 40 of lasix this am. Will give more potassium replacement. Continue trickle feeds for now. Will continue PO meds and restart home dose of citalopram. Wean FiO2 and flow for sats >88%. Mildly hypertensive but this was secondary to agitation. Normalizing now. 10/25: Will extubate today. Will use HFNC if distress or hypoxemia is noted. Not a good candidate for bipap given his recent abdominal issues. Spoke with who is now at bedside and surgery. Will continue to attempt to achieve net negative state daily. Hold on further albumin administration. Hypernatremia is iatrogenic from lasix administration Worse case scenario, will re-intubate with anesthesia. 10/24: Responding well to lasix and protein therapy. Will give 2 more doses of lasix today. Consider one for tonight as well. Last albumin today at 1800. CXR is stable, still with layering bilateral pleural effusions. Will reassess again tomorrow. Reviewed all other call center consultant notes. Spoke with sisters at bedside, updated and spoke with surgery. 10/23: Long discussion with surgery and via phone. Anasarca is likely from decreased oncotic pressure and immobility of several days now that abdomen is finally closed. Now fluid is essentially leaking into the interstitium now that the abdomen is shut and there is increased intra-abdominal pressure. Total Protein is 4.5 and albumin is 1.2. This is to be expected given current illness. Will attempt to increase oncotic pressure with 2 units of PRBC's and albumin infusions for the next 24 hours starting at midnight tonight. Will give lasix inbetween transfusions and then again tonight. CXR is consistent with pulmonary edema volume overload. Will continue vent for now and after significant volume removal then will attempt extubation. Discussed with and she understands. Will continue to monitor. Agree with trickle feeds and cards has switched amio over to PO to be given through the G-tube. If tolerates, hopeful to be rid of TPN soon as this is necessary but excessive volume as well. 10/22: Added diprovan as more sedation was needed. Hopefully once closed and no leaks, patient can be extubated. Cards very concerned about length of time for IV amio. Will discuss with surgery the time frame that gut can be used. 10/21: Will hold on weaning until abdomen is closed, especially knowing mental status is good. Will focus on pain control. Replace electrolytes. Appreciate Surgery recs and detail. Follow up any new recs from cards. Or tomorrow for closure Subjective Date of service: 11/19/19 Principal diagnosis: acute renal failure Interval history: No acute events. Pulm status is stable. Objective Vital Signs - 12hr 11/19/19 11/19/19 11/19/19 04:57 06:52 09:17 Temperature 98.0 F Pulse Rate 84 84 84 Pulse Rate [ Anterior Bilateral Throughout] Respiratory 18 Rate Respiratory Rate [Anterior Bilateral Throughout] Blood Pressure 105/58 105/58 105/58 O2 Sat by Pulse 91 Oximetry 11/19/19 11/19/19 10:33 10:34 Temperature Pulse Rate Pulse Rate [ 94 H Anterior Bilateral Throughout] Respiratory Rate Respiratory 20 Rate [Anterior Bilateral Throughout] Blood Pressure O2 Sat by Pulse 97 Oximetry Constitutional: no acute distress, alert, other (obese) Eyes: non-icteric ENT: oropharynx moist Neck: supple Effort: normal Ascultation: Bilateral: diminished breath sounds (bases) Cardiovascular: regular rate and rhythm (no mrg) Gastrointestinal: tender, other (obese, distended, ostomy in place; wound vac in place) Integumentary: normal Extremities: no cyanosis, pink and warm, edema (1+ bilateral LE edema) Neurologic: normal mental status, non-focal exam, pupils equal and round Psychiatric: mood appropriate, affect normal CBC and BMP: 11/17/19 07:22 11/17/19 07:22 ABG, PT/INR, D-dimer: ABG POC ABG pH 7.422 (7.35-7.45) 11/03/19 04:28 ABG pH 7.390 pH Units (7.350-7.450) 10/23/19 04:47 POC ABG pCO2 45.4 (35-45) H 11/03/19 04:28 ABG pCO2 48.4 mm Hg 10/23/19 04:47 POC ABG pO2 83 (80-105) 11/03/19 04:28 ABG pO2 68.9 mm Hg (80.0-90.0) L 10/23/19 04:47 POC ABG HCO3 29.6 (22-26 mml/L) 11/03/19 04:28 POC ABG Total CO2 31 (23-27mmol/L) 11/03/19 04:28 POC ABG O2 Sat 96 11/03/19 04:28 ABG O2 Saturation 96.6 % (95.0-99.0) 10/23/19 04:47 Abnormal lab findings: Abnormal Labs 10/06/19 10/06/19 10/07/19 05:36 05:36 05:54 WBC 21.8 H 21.5 H RBC 3.55 L Hgb 10.9 L Hct 32.7 L MCH MCHC RDW Plt Count Lymph % (Auto) Greer % (Auto) Lymph # Greer # Seg Neutrophils % Seg Neuts % (Manual) 91.0 H Lymphocytes % (Manual) 2.0 L Seg Neutrophils # Seg Neutrophils # Man 19.8 H Lymphocytes # (Manual) 0.4 L Monocytes # (Manual) 1.1 H POC ABG pH ABG pH POC ABG pCO2 POC ABG pO2 ABG pO2 ABG HCO3 ABG Base Excess ABG Hemoglobin Oxyhemoglobin Sodium 135 L Potassium Chloride 95.9 L Carbon Dioxide BUN Creatinine 0.7 L Glucose POC Glucose Calcium Phosphorus Magnesium Direct Bilirubin AST Alkaline Phosphatase C-Reactive Protein Serum Total Protein Total Protein 5.7 L Albumin 2.5 L Prealbumin Rswwu-5-Duhynqwha Yeikk-1-Pxircwmpj Gamma Globulins PEP Interpretation Triglycerides Urine pH Urine Creatinine Urine Total Protein Vancomycin Trough Digoxin Crossmatch 10/07/19 10/09/19 10/09/19 05:54 10:52 10:52 WBC 16.6 H RBC Hgb Hct MCH MCHC RDW Plt Count 498 H Lymph % (Auto) Greer % (Auto) Lymph # Gre[place] # Seg Neutrophils % Seg Neuts % (Manual) 93.0 H Lymphocytes % (Manual) 5.0 L Seg Neutrophils # Seg Neutrophils # Man 15.4 H Lymphocytes # (Manual) 0.8 L Monocytes # (Manual) POC ABG pH ABG pH POC ABG pCO2 POC ABG pO2 ABG pO2 ABG HCO3 ABG Base Excess ABG Hemoglobin Oxyhemoglobin Sodium Potassium Chloride 97.9 L Carbon Dioxide 20 L D BUN 23 H Creatinine 1.7 H D Glucose 109 H POC Glucose Calcium 8.1 L Phosphorus Magnesium Direct Bilirubin AST Alkaline Phosphatase C-Reactive Protein Serum Total Protein Total Protein Albumin Prealbumin Nwzlw-2-Tlqlpjvgu Sydeu-9-Mfhkqifjh Gamma Globulins PEP Interpretation Triglycerides Urine pH Urine Creatinine Urine Total Protein Vancomycin Trough Digoxin Crossmatch 10/09/19 10/10/19 10/10/19 17:23 05:30 05:30 WBC 14.6 H RBC Hgb 11.1 L Hct 33.5 L MCH MCHC RDW Plt Count 527 H Lymph % (Auto) Gre[place] % (Auto) Lymph # [place] # Seg Neutrophils % Seg Neuts % (Manual) Lymphocytes % (Manual) Seg Neutrophils # Seg Neutrophils # Man Lymphocytes # (Manual) Monocytes # (Manual) POC ABG pH ABG pH POC ABG pCO2 POC ABG pO2 ABG pO2 ABG HCO3 ABG Base Excess ABG Hemoglobin Oxyhemoglobin Sodium 130 L D Potassium 5.1 H Chloride 90.0 L 91.0 L Carbon Dioxide 20 L 20 L BUN 27 H 35 H Creatinine 1.9 H 2.0 H Glucose 104 H POC Glucose Calcium Phosphorus Magnesium Direct Bilirubin AST Alkaline Phosphatase C-Reactive Protein Serum Total Protein Total Protein Albumin Prealbumin Pltru-0-Empnntrof Bsucb-0-Ogkcjtxih Gamma Globulins PEP Interpretation Triglycerides Urine pH Urine Creatinine Urine Total Protein Vancomycin Trough Digoxin Crossmatch 10/10/19 10/10/19 10/11/19 08:33 08:44 05:41 WBC 13.2 H RBC Hgb 11.3 L Hct 33.8 L MCH MCHC RDW 15.3 H Plt Count 543 H Lymph % (Auto) Gre[place] % (Auto) Lymph # [place] # Seg Neutrophils % Seg Neuts % (Manual) Lymphocytes % (Manual) Seg Neutrophils # Seg Neutrophils # Man Lymphocytes # (Manual) Monocytes # (Manual) POC ABG pH ABG pH POC ABG pCO2 POC ABG pO2 ABG pO2 ABG HCO3 ABG Base Excess ABG Hemoglobin Oxyhemoglobin Sodium Potassium Chloride Carbon Dioxide BUN Creatinine Glucose 113 H POC Glucose 117 H Calcium Phosphorus Magnesium Direct Bilirubin AST Alkaline Phosphatase C-Reactive Protein Serum Total Protein Total Protein Albumin Prealbumin Ljuxw-1-Fpfpvtfsl Btycs-8-Ywunibnyn Gamma Globulins PEP Interpretation Triglycerides Urine pH Urine Creatinine Urine Total Protein Vancomycin Trough Digoxin Crossmatch 10/11/19 10/11/19 10/11/19 05:41 06:23 06:23 WBC RBC Hgb Hct MCH MCHC RDW Plt Count Lymph % (Auto) [place] % (Auto) Lymph # [place] # Seg Neutrophils % Seg Neuts % (Manual) Lymphocytes % (Manual) Seg Neutrophils # Seg Neutrophils # Man Lymphocytes # (Manual) Monocytes # (Manual) POC ABG pH ABG pH POC ABG pCO2 POC ABG pO2 ABG pO2 ABG HCO3 ABG Base Excess ABG Hemoglobin Oxyhemoglobin Sodium 134 L Potassium Chloride 96.3 L Carbon Dioxide BUN 37 H Creatinine Glucose 58 L POC Glucose Calcium Phosphorus 4.90 H Magnesium Direct Bilirubin AST Alkaline Phosphatase C-Reactive Protein Serum Total Protein Total Protein Albumin Prealbumin Vxwzy-2-Wwiqcchys Fxhns-1-Pmdzujger Gamma Globulins PEP Interpretation Triglycerides Urine pH Urine Creatinine 118.2 H 116.8 H Urine Total Protein 105 H 104 H Vancomycin Trough Digoxin Crossmatch 10/11/19 10/12/19 10/12/19 09:00 06:09 06:09 WBC 13.8 H RBC 3.39 L Hgb 10.2 L Hct 30.9 L MCH MCHC RDW 15.5 H Plt Count 459 H Lymph % (Auto) [place] % (Auto) Lymph # [place] # Seg Neutrophils % Seg Neuts % (Manual) Lymphocytes % (Manual) Seg Neutrophils # Seg Neutrophils # Man Lymphocytes # (Manual) Monocytes # (Manual) POC ABG pH ABG pH POC ABG pCO2 POC ABG pO2 ABG pO2 ABG HCO3 ABG Base Excess ABG Hemoglobin Oxyhemoglobin Sodium 131 L Potassium Chloride 96.2 L Carbon Dioxide 21 L BUN 43 H Creatinine Glucose 72 L POC Glucose Calcium Phosphorus Magnesium Direct Bilirubin AST Alkaline Phosphatase C-Reactive Protein Serum Total Protein 5.2 L Total Protein Albumin 1.9 L Prealbumin Hjsql-3-Yswhxmffk 0.9 H Euyus-5-Johehnxzs 1.0 H Gamma Globulins 0.7 L PEP Interpretation see below H Triglycerides Urine pH Urine Creatinine Urine Total Protein Vancomycin Trough Digoxin Crossmatch 10/12/19 10/12/19 10/12/19 08:20 09:30 09:30 WBC RBC Hgb Hct MCH MCHC RDW Plt Count Lymph % (Auto) [place] % (Auto) Lymph # [place] # Seg Neutrophils % Seg Neuts % (Manual) Lymphocytes % (Manual) Seg Neutrophils # Seg Neutrophils # Man Lymphocytes # (Manual) Monocytes # (Manual) POC ABG pH ABG pH POC ABG pCO2 POC ABG pO2 63 L ABG pO2 ABG HCO3 ABG Base Excess ABG Hemoglobin Oxyhemoglobin Sodium Potassium Chloride Carbon Dioxide BUN Creatinine Glucose POC Glucose Calcium Phosphorus Magnesium 2.50 H Direct Bilirubin 0.3 H AST Alkaline Phosphatase C-Reactive Protein Serum Total Protein Total Protein 5.1 L Albumin 2.2 L Prealbumin Amgbe-8-Agkdpkkdj Lfxeb-7-Lxjxbmtty Gamma Globulins PEP Interpretation Triglycerides Urine pH Urine Creatinine Urine Total Protein Vancomycin Trough Digoxin Crossmatch 10/13/19 10/13/19 10/13/19 04:20 04:20 13:20 WBC 15.7 H RBC 3.64 L Hgb 10.9 L Hct 33.1 L MCH MCHC RDW 15.8 H Plt Count 488 H Lymph % (Auto) [place] % (Auto) Lymph # [place] # Seg Neutrophils % Seg Neuts % (Manual) Lymphocytes % (Manual) Seg Neutrophils # Seg Neutrophils # Man Lymphocytes # (Manual) Monocytes # (Manual) POC ABG pH ABG pH POC ABG pCO2 POC ABG pO2 ABG pO2 ABG HCO3 ABG Base Excess ABG Hemoglobin Oxyhemoglobin Sodium Potassium Chloride Carbon Dioxide BUN 28 H Creatinine Glucose POC Glucose Calcium Phosphorus Magnesium Direct Bilirubin AST Alkaline Phosphatase C-Reactive Protein Serum Total Protein Total Protein Albumin Prealbumin Gpfqq-6-Bshlefgbq Xiivn-8-Vpghgnkos Gamma Globulins PEP Interpretation Triglycerides Urine pH Urine Creatinine Urine Total Protein Vancomycin Trough Digoxin Crossmatch See Detail 10/13/19 10/13/19 10/14/19 18:24 20:05 04:47 WBC 24.2 H RBC Hgb 10.9 L Hct 34.2 L MCH MCHC RDW 17.0 H Plt Count 442 H Lymph % (Auto) [place] % (Auto) Lymph # [place] # Seg Neutrophils % Seg Neuts % (Manual) Lymphocytes % (Manual) Seg Neutrophils # Seg Neutrophils # Man Lymphocytes # (Manual) Monocytes # (Manual) POC ABG pH ABG pH 7.180 L* 7.278 L POC ABG pCO2 POC ABG pO2 ABG pO2 130.7 H ABG HCO3 ABG Base Excess -6.5 L -6.5 L ABG Hemoglobin 12.2 L 12.3 L Oxyhemoglobin 92.9 L Sodium Potassium Chloride Carbon Dioxide BUN Creatinine Glucose POC Glucose Calcium Phosphorus Magnesium Direct Bilirubin AST Alkaline Phosphatase C-Reactive Protein Serum Total Protein Total Protein Albumin Prealbumin Rppzc-8-Wmyenunsk Elsks-2-Ceogcizul Gamma Globulins PEP Interpretation Triglycerides Urine pH Urine Creatinine Urine Total Protein Vancomycin Trough Digoxin Crossmatch 10/14/19 10/14/19 10/14/19 04:47 05:40 10:14 WBC RBC Hgb Hct MCH MCHC RDW Plt Count Lymph % (Auto) [place] % (Auto) Lymph # [place] # Seg Neutrophils % Seg Neuts % (Manual) Lymphocytes % (Manual) Seg Neutrophils # Seg Neutrophils # Man Lymphocytes # (Manual) Monocytes # (Manual) POC ABG pH ABG pH POC ABG pCO2 POC ABG pO2 ABG pO2 76.3 L ABG HCO3 19.1 L ABG Base Excess -5.8 L ABG Hemoglobin 10.9 L Oxyhemoglobin 93.4 L Sodium Potassium 5.1 H D Chloride 109.2 H Carbon Dioxide 17 L BUN 38 H Creatinine 1.8 H D Glucose 104 H POC Glucose Calcium 7.4 L Phosphorus 5.60 H Magnesium Direct Bilirubin AST Alkaline Phosphatase C-Reactive Protein Serum Total Protein Total Protein Albumin Prealbumin Ritow-9-Tbavmysmq Dmdmc-3-Msyorhrfv Gamma Globulins PEP Interpretation Triglycerides Urine pH Urine Creatinine Urine Total Protein Vancomycin Trough Digoxin Crossmatch 10/14/19 10/15/19 10/15/19 23:46 04:32 04:32 WBC 15.5 H RBC 2.89 L Hgb 8.8 L Hct 27.3 L D MCH MCHC RDW 16.6 H Plt Count Lymph % (Auto) [place] % (Auto) Lymph # [place] # Seg Neutrophils % Seg Neuts % (Manual) Lymphocytes % (Manual) Seg Neutrophils # Seg Neutrophils # Man Lymphocytes # (Manual) Monocytes # (Manual) POC ABG pH ABG pH POC ABG pCO2 POC ABG pO2 ABG pO2 ABG HCO3 ABG Base Excess ABG Hemoglobin Oxyhemoglobin Sodium 147 H Potassium Chloride 114.0 H Carbon Dioxide 19 L BUN 42 H Creatinine Glucose 112 H POC Glucose 113 H Calcium 7.3 L Phosphorus Magnesium Direct Bilirubin AST 72 H Alkaline Phosphatase C-Reactive Protein 30.60 H Serum Total Protein Total Protein 4.0 L D Albumin 1.7 L Prealbumin 0.030 L Rdklz-9-Zavpgdeuw Uhhxx-4-Nfntfdpfs Gamma Globulins PEP Interpretation Triglycerides Urine pH Urine Creatinine Urine Total Protein Vancomycin Trough Digoxin Crossmatch 10/15/19 10/15/19 10/15/19 05:30 12:08 17:23 WBC RBC Hgb Hct MCH MCHC RDW Plt Count Lymph % (Auto) Greer % (Auto) Lymph # [place] # Seg Neutrophils % Seg Neuts % (Manual) Lymphocytes % (Manual) Seg Neutrophils # Seg Neutrophils # Man Lymphocytes # (Manual) Monocytes # (Manual) POC ABG pH ABG pH 7.296 L POC ABG pCO2 POC ABG pO2 ABG pO2 114.7 H ABG HCO3 ABG Base Excess -3.7 L ABG Hemoglobin 8.9 L Oxyhemoglobin Sodium Potassium Chloride Carbon Dioxide BUN Creatinine Glucose POC Glucose 106 H 106 H Calcium Phosphorus Magnesium Direct Bilirubin AST Alkaline Phosphatase C-Reactive Protein Serum Total Protein Total Protein Albumin Prealbumin Ccphc-9-Exiyqsakd Yxcyp-4-Vtkdeidfi Gamma Globulins PEP Interpretation Triglycerides Urine pH Urine Creatinine Urine Total Protein Vancomycin Trough Digoxin Crossmatch 10/16/19 10/16/19 10/16/19 00:07 04:44 05:24 WBC RBC Hgb Hct MCH MCHC RDW Plt Count Lymph % (Auto) Greer % (Auto) Lymph # [place] # Seg Neutrophils % Seg Neuts % (Manual) Lymphocytes % (Manual) Seg Neutrophils # Seg Neutrophils # Man Lymphocytes # (Manual) Monocytes # (Manual) POC ABG pH ABG pH POC ABG pCO2 POC ABG pO2 ABG pO2 ABG HCO3 ABG Base Excess ABG Hemoglobin Oxyhemoglobin Sodium 150 H Potassium Chloride 115.8 H Carbon Dioxide BUN 35 H Creatinine Glucose 129 H POC Glucose 119 H 129 H Calcium 7.3 L Phosphorus 1.80 L D Magnesium Direct Bilirubin AST Alkaline Phosphatase C-Reactive Protein Serum Total Protein Total Protein Albumin Prealbumin Tktxn-3-Fbglppxsq Ticfu-2-Wwmsxyvje Gamma Globulins PEP Interpretation Triglycerides Urine pH Urine Creatinine Urine Total Protein Vancomycin Trough Digoxin Crossmatch 10/16/19 10/16/19 10/16/19 06:53 09:20 11:58 WBC 14.6 H RBC 2.70 L Hgb 8.1 L Hct 25.2 L MCH MCHC RDW 16.7 H Plt Count Lymph % (Auto) [place] % (Auto) Lymph # [place] # Seg Neutrophils % Seg Neuts % (Manual) 79.0 H Lymphocytes % (Manual) 4.0 L Seg Neutrophils # Seg Neutrophils # Man 11.5 H Lymphocytes # (Manual) 0.6 L Monocytes # (Manual) POC ABG pH ABG pH POC ABG pCO2 47.0 H POC ABG pO2 ABG pO2 ABG HCO3 ABG Base Excess ABG Hemoglobin Oxyhemoglobin Sodium Potassium Chloride Carbon Dioxide BUN Creatinine Glucose POC Glucose Calcium Phosphorus Magnesium Direct Bilirubin AST Alkaline Phosphatase C-Reactive Protein Serum Total Protein Total Protein Albumin Prealbumin Qjowr-4-Tnvtaozjs Oihyy-8-Unxfckmsb Gamma Globulins PEP Interpretation Triglycerides Urine pH Urine Creatinine Urine Total Protein Vancomycin Trough Digoxin Crossmatch See Detail 10/16/19 10/16/19 10/16/19 15:23 17:50 23:58 WBC RBC Hgb Hct MCH MCHC RDW Plt Count Lymph % (Auto) Gre[place] % (Auto) Lymph # [place] # Seg Neutrophils % Seg Neuts % (Manual) Lymphocytes % (Manual) Seg Neutrophils # Seg Neutrophils # Man Lymphocytes # (Manual) Monocytes # (Manual) POC ABG pH ABG pH POC ABG pCO2 POC ABG pO2 ABG pO2 ABG HCO3 ABG Base Excess ABG Hemoglobin Oxyhemoglobin Sodium Potassium Chloride Carbon Dioxide BUN Creatinine Glucose POC Glucose 221 H 201 H 179 H Calcium Phosphorus Magnesium Direct Bilirubin AST Alkaline Phosphatase C-Reactive Protein Serum Total Protein Total Protein Albumin Prealbumin Enlvh-2-Idggkjwke Pzmbt-6-Ojktgcztx Gamma Globulins PEP Interpretation Triglycerides Urine pH Urine Creatinine Urine Total Protein Vancomycin Trough Digoxin Crossmatch 10/17/19 10/17/19 10/17/19 04:08 04:08 05:41 WBC 22.3 H RBC 3.35 L Hgb 10.0 L Hct 31.2 L D MCH MCHC RDW 16.1 H Plt Count Lymph % (Auto) Gre[place] % (Auto) Lymph # [place] # Seg Neutrophils % Seg Neuts % (Manual) Lymphocytes % (Manual) Seg Neutrophils # Seg Neutrophils # Man Lymphocytes # (Manual) Monocytes # (Manual) POC ABG pH 7.310 L ABG pH POC ABG pCO2 52.8 H POC ABG pO2 70 L ABG pO2 ABG HCO3 ABG Base Excess ABG Hemoglobin Oxyhemoglobin Sodium 147 H Potassium Chloride 114.9 H Carbon Dioxide BUN 36 H Creatinine Glucose 165 H POC Glucose Calcium 6.9 L Phosphorus 2.20 L D Magnesium Direct Bilirubin AST Alkaline Phosphatase C-Reactive Protein Serum Total Protein Total Protein Albumin Prealbumin Bssac-6-Iubgihiyw Tdddo-7-Gdpqthycw Gamma Globulins PEP Interpretation Triglycerides Urine pH Urine Creatinine Urine Total Protein Vancomycin Trough Digoxin Crossmatch 10/17/19 10/17/19 10/17/19 05:42 11:33 18:17 WBC RBC Hgb Hct MCH MCHC RDW Plt Count Lymph % (Auto) [place] % (Auto) Lymph # [place] # Seg Neutrophils % Seg Neuts % (Manual) Lymphocytes % (Manual) Seg Neutrophils # Seg Neutrophils # Man Lymphocytes # (Manual) Monocytes # (Manual) POC ABG pH ABG pH POC ABG pCO2 POC ABG pO2 ABG pO2 ABG HCO3 ABG Base Excess ABG Hemoglobin Oxyhemoglobin Sodium Potassium Chloride Carbon Dioxide BUN Creatinine Glucose POC Glucose 149 H 154 H 163 H Calcium Phosphorus Magnesium Direct Bilirubin AST Alkaline Phosphatase C-Reactive Protein Serum Total Protein Total Protein Albumin Prealbumin Yluup-4-Dgjyixzrx Fxiza-3-Qheqxjymf Gamma Globulins PEP Interpretation Triglycerides Urine pH Urine Creatinine Urine Total Protein Vancomycin Trough Digoxin Crossmatch 10/17/19 10/18/19 10/18/19 23:34 03:29 04:50 WBC RBC Hgb Hct MCH MCHC RDW Plt Count Lymph % (Auto) [place] % (Auto) Lymph # [place] # Seg Neutrophils % Seg Neuts % (Manual) Lymphocytes % (Manual) Seg Neutrophils # Seg Neutrophils # Man Lymphocytes # (Manual) Monocytes # (Manual) POC ABG pH ABG pH POC ABG pCO2 POC ABG pO2 ABG pO2 78.8 L ABG HCO3 ABG Base Excess ABG Hemoglobin 8.8 L Oxyhemoglobin Sodium Potassium Chloride 111.8 H Carbon Dioxide BUN 27 H Creatinine 0.6 L Glucose 140 H POC Glucose 135 H Calcium 7.1 L Phosphorus 1.80 L Magnesium Direct Bilirubin AST Alkaline Phosphatase C-Reactive Protein Serum Total Protein Total Protein Albumin Prealbumin Esvaw-9-Gcjakenxx Ruvpt-6-Khauykqfb Gamma Globulins PEP Interpretation Triglycerides Urine pH Urine Creatinine Urine Total Protein Vancomycin Trough Digoxin Crossmatch 10/18/19 10/18/19 10/18/19 05:45 11:19 18:26 WBC RBC Hgb Hct MCH MCHC RDW Plt Count Lymph % (Auto) [place] % (Auto) Lymph # [place] # Seg Neutrophils % Seg Neuts % (Manual) Lymphocytes % (Manual) Seg Neutrophils # Seg Neutrophils # Man Lymphocytes # (Manual) Monocytes # (Manual) POC ABG pH ABG pH POC ABG pCO2 POC ABG pO2 ABG pO2 ABG HCO3 ABG Base Excess ABG Hemoglobin Oxyhemoglobin Sodium Potassium Chloride Carbon Dioxide BUN Creatinine Glucose POC Glucose 145 H 152 H 125 H Calcium Phosphorus Magnesium Direct Bilirubin AST Alkaline Phosphatase C-Reactive Protein Serum Total Protein Total Protein Albumin Prealbumin Fmsqh-5-Dhzfppsey Gmcpk-2-Tkqmzlkkq Gamma Globulins PEP Interpretation Triglycerides Urine pH Urine Creatinine Urine Total Protein Vancomycin Trough Digoxin Crossmatch 10/18/19 10/19/19 10/19/19 23:27 04:21 04:21 WBC RBC Hgb Hct MCH MCHC RDW Plt Count Lymph % (Auto) [place] % (Auto) Lymph # [place] # Seg Neutrophils % Seg Neuts % (Manual) Lymphocytes % (Manual) Seg Neutrophils # Seg Neutrophils # Man Lymphocytes # (Manual) Monocytes # (Manual) POC ABG pH ABG pH POC ABG pCO2 POC ABG pO2 ABG pO2 ABG HCO3 ABG Base Excess ABG Hemoglobin Oxyhemoglobin Sodium Potassium Chloride 108.4 H Carbon Dioxide BUN 22 H Creatinine 0.5 L Glucose 123 H POC Glucose 127 H Calcium 7.4 L Phosphorus 1.80 L Magnesium Direct Bilirubin AST Alkaline Phosphatase C-Reactive Protein Serum Total Protein Total Protein Albumin Prealbumin Mzmso-8-Ygedenirh Mdtst-9-Nmjkeoyyq Gamma Globulins PEP Interpretation Triglycerides Urine pH Urine Creatinine Urine Total Protein Vancomycin Trough Digoxin 0.7 L Crossmatch 10/19/19 10/19/19 10/19/19 05:00 05:35 11:26 WBC RBC Hgb Hct MCH MCHC RDW Plt Count Lymph % (Auto) [place] % (Auto) Lymph # [place] # Seg Neutrophils % Seg Neuts % (Manual) Lymphocytes % (Manual) Seg Neutrophils # Seg Neutrophils # Man Lymphocytes # (Manual) Monocytes # (Manual) POC ABG pH ABG pH 7.456 H POC ABG pCO2 POC ABG pO2 ABG pO2 78.8 L ABG HCO3 ABG Base Excess ABG Hemoglobin 5.6 L Oxyhemoglobin Sodium Potassium Chloride Carbon Dioxide BUN Creatinine Glucose POC Glucose 124 H 111 H Calcium Phosphorus Magnesium Direct Bilirubin AST Alkaline Phosphatase C-Reactive Protein Serum Total Protein Total Protein Albumin Prealbumin Pmnau-6-Dptmltdzn Xkdoa-6-Ioxnzbsek Gamma Globulins PEP Interpretation Triglycerides Urine pH Urine Creatinine Urine Total Protein Vancomycin Trough Digoxin Crossmatch 10/19/19 10/20/19 10/20/19 23:23 04:50 05:17 WBC RBC Hgb Hct MCH MCHC RDW Plt Count Lymph % (Auto) [place] % (Auto) Lymph # [place] # Seg Neutrophils % Seg Neuts % (Manual) Lymphocytes % (Manual) Seg Neutrophils # Seg Neutrophils # Man Lymphocytes # (Manual) Monocytes # (Manual) POC ABG pH ABG pH POC ABG pCO2 POC ABG pO2 ABG pO2 ABG HCO3 ABG Base Excess ABG Hemoglobin Oxyhemoglobin Sodium Potassium Chloride 108.1 H Carbon Dioxide BUN Creatinine 0.4 L Glucose 134 H POC Glucose 129 H 123 H Calcium 7.1 L Phosphorus Magnesium Direct Bilirubin AST Alkaline Phosphatase C-Reactive Protein Serum Total Protein Total Protein Albumin Prealbumin Wtfgo-3-Jvbusewyy Uyxso-7-Wgkownipc Gamma Globulins PEP Interpretation Triglycerides Urine pH Urine Creatinine Urine Total Protein Vancomycin Trough Digoxin Crossmatch 10/20/19 10/20/19 10/21/19 11:40 19:06 05:08 WBC RBC Hgb Hct MCH MCHC RDW Plt Count Lymph % (Auto) [place] % (Auto) Lymph # [place] # Seg Neutrophils % Seg Neuts % (Manual) Lymphocytes % (Manual) Seg Neutrophils # Seg Neutrophils # Man Lymphocytes # (Manual) Monocytes # (Manual) POC ABG pH ABG pH POC ABG pCO2 POC ABG pO2 ABG pO2 ABG HCO3 ABG Base Excess ABG Hemoglobin Oxyhemoglobin Sodium Potassium Chloride Carbon Dioxide BUN Creatinine Glucose POC Glucose 139 H 117 H 131 H Calcium Phosphorus Magnesium Direct Bilirubin AST Alkaline Phosphatase C-Reactive Protein Serum Total Protein Total Protein Albumin Prealbumin Puqgp-5-Gmascepat Ukmwf-3-Hywqdjdxk Gamma Globulins PEP Interpretation Triglycerides Urine pH Urine Creatinine Urine Total Protein Vancomycin Trough Digoxin Crossmatch 10/21/19 10/21/19 10/21/19 05:30 12:04 17:31 WBC RBC Hgb Hct MCH MCHC RDW Plt Count Lymph % (Auto) [place] % (Auto) Lymph # [place] # Seg Neutrophils % Seg Neuts % (Manual) Lymphocytes % (Manual) Seg Neutrophils # Seg Neutrophils # Man Lymphocytes # (Manual) Monocytes # (Manual) POC ABG pH ABG pH POC ABG pCO2 POC ABG pO2 ABG pO2 ABG HCO3 ABG Base Excess ABG Hemoglobin Oxyhemoglobin Sodium Potassium Chloride 107.8 H Carbon Dioxide BUN Creatinine 0.5 L Glucose 119 H POC Glucose 119 H 110 H Calcium 7.6 L Phosphorus Magnesium Direct Bilirubin AST Alkaline Phosphatase C-Reactive Protein Serum Total Protein Total Protein Albumin Prealbumin Ucmvs-4-Vcxpxezlz Cpyam-4-Npzqmqxoy Gamma Globulins PEP Interpretation Triglycerides Urine pH Urine Creatinine Urine Total Protein Vancomycin Trough Digoxin Crossmatch 10/22/19 10/22/19 10/22/19 05:14 05:37 12:07 WBC RBC Hgb Hct MCH MCHC RDW Plt Count Lymph % (Auto) [place] % (Auto) Lymph # [place] # Seg Neutrophils % Seg Neuts % (Manual) Lymphocytes % (Manual) Seg Neutrophils # Seg Neutrophils # Man Lymphocytes # (Manual) Monocytes # (Manual) POC ABG pH ABG pH POC ABG pCO2 POC ABG pO2 ABG pO2 ABG HCO3 ABG Base Excess ABG Hemoglobin Oxyhemoglobin Sodium Potassium Chloride Carbon Dioxide BUN Creatinine 0.5 L Glucose 116 H POC Glucose 110 H 126 H Calcium 7.7 L Phosphorus Magnesium Direct Bilirubin AST Alkaline Phosphatase C-Reactive Protein Serum Total Protein Total Protein Albumin Prealbumin Ppffi-9-Mdimbkxkp Lktot-9-Qulhhpwce Gamma Globulins PEP Interpretation Triglycerides Urine pH Urine Creatinine Urine Total Protein Vancomycin Trough Digoxin Crossmatch 10/22/19 10/22/19 10/23/19 18:36 23:19 04:39 WBC RBC Hgb Hct MCH MCHC RDW Plt Count Lymph % (Auto) [place] % (Auto) Lymph # [place] # Seg Neutrophils % Seg Neuts % (Manual) Lymphocytes % (Manual) Seg Neutrophils # Seg Neutrophils # Man Lymphocytes # (Manual) Monocytes # (Manual) POC ABG pH ABG pH POC ABG pCO2 POC ABG pO2 ABG pO2 ABG HCO3 ABG Base Excess ABG Hemoglobin Oxyhemoglobin Sodium Potassium Chloride Carbon Dioxide BUN Creatinine Glucose POC Glucose 120 H 127 H 112 H Calcium Phosphorus Magnesium Direct Bilirubin AST Alkaline Phosphatase C-Reactive Protein Serum Total Protein Total Protein Albumin Prealbumin Deoau-4-Driuyjxun Rralo-4-Ytfxkalpv Gamma Globulins PEP Interpretation Triglycerides Urine pH Urine Creatinine Urine Total Protein Vancomycin Trough Digoxin Crossmatch 10/23/19 10/23/19 10/23/19 04:47 05:15 10:44 WBC 18.3 H RBC 2.33 L Hgb 7.0 L Hct 21.5 L MCH MCHC RDW 16.2 H Plt Count Lymph % (Auto) 4.9 L [place] % (Auto) 8.1 H Lymph # 0.9 L [place] # 1.5 H Seg Neutrophils % 86.7 H Seg Neuts % (Manual) Lymphocytes % (Manual) Seg Neutrophils # 15.9 H Seg Neutrophils # Man Lymphocytes # (Manual) Monocytes # (Manual) POC ABG pH ABG pH POC ABG pCO2 POC ABG pO2 ABG pO2 68.9 L ABG HCO3 28.7 H ABG Base Excess 3.4 H ABG Hemoglobin 6.6 L Oxyhemoglobin 94.1 L Sodium Potassium Chloride Carbon Dioxide BUN Creatinine 0.5 L Glucose 165 H POC Glucose Calcium 7.4 L Phosphorus Magnesium Direct Bilirubin AST Alkaline Phosphatase C-Reactive Protein Serum Total Protein Total Protein Albumin Prealbumin Zqwuv-9-Nnpvfclpp Vubfy-6-Rmitufafj Gamma Globulins PEP Interpretation Triglycerides Urine pH Urine Creatinine Urine Total Protein Vancomycin Trough Digoxin Crossmatch 10/23/19 10/23/19 10/23/19 10:44 11:46 11:50 WBC RBC Hgb Hct MCH MCHC RDW Plt Count Lymph % (Auto) [place] % (Auto) Lymph # [place] # Seg Neutrophils % Seg Neuts % (Manual) Lymphocytes % (Manual) Seg Neutrophils # Seg Neutrophils # Man Lymphocytes # (Manual) Monocytes # (Manual) POC ABG pH ABG pH POC ABG pCO2 POC ABG pO2 ABG pO2 ABG HCO3 ABG Base Excess ABG Hemoglobin Oxyhemoglobin Sodium Potassium Chloride Carbon Dioxide BUN Creatinine Glucose POC Glucose 138 H Calcium Phosphorus Magnesium Direct Bilirubin 0.7 H AST Alkaline Phosphatase C-Reactive Protein Serum Total Protein Total Protein 4.5 L Albumin 1.2 L Prealbumin Girps-3-Zmyvjvlrg Qmuak-2-Szmctaogx Gamma Globulins PEP Interpretation Triglycerides Urine pH Urine Creatinine Urine Total Protein Vancomycin Trough Digoxin Crossmatch See Detail 10/23/19 10/24/19 10/24/19 17:53 00:07 05:05 WBC RBC Hgb Hct MCH MCHC RDW Plt Count Lymph % (Auto) [place] % (Auto) Lymph # [place] # Seg Neutrophils % Seg Neuts % (Manual) Lymphocytes % (Manual) Seg Neutrophils # Seg Neutrophils # Man Lymphocytes # (Manual) Monocytes # (Manual) POC ABG pH ABG pH POC ABG pCO2 POC ABG pO2 ABG pO2 ABG HCO3 ABG Base Excess ABG Hemoglobin Oxyhemoglobin Sodium Potassium 3.5 L Chloride Carbon Dioxide BUN Creatinine 0.5 L Glucose 116 H POC Glucose 137 H 110 H Calcium 8.0 L Phosphorus Magnesium Direct Bilirubin AST Alkaline Phosphatase C-Reactive Protein Serum Total Protein Total Protein Albumin Prealbumin Ugwip-1-Zecrkftll Yydyq-7-Qbdewuisp Gamma Globulins PEP Interpretation Triglycerides Urine pH Urine Creatinine Urine Total Protein Vancomycin Trough Digoxin Crossmatch 10/24/19 10/24/19 10/24/19 05:05 11:56 13:00 WBC 13.0 H RBC 2.73 L Hgb 8.0 L Hct 24.2 L MCH MCHC RDW 17.9 H Plt Count Lymph % (Auto) 7.0 L [place] % (Auto) 9.5 H Lymph # 0.9 L [place] # 1.2 H Seg Neutrophils % 82.7 H Seg Neuts % (Manual) Lymphocytes % (Manual) Seg Neutrophils # 10.7 H Seg Neutrophils # Man Lymphocytes # (Manual) Monocytes # (Manual) POC ABG pH ABG pH POC ABG pCO2 POC ABG pO2 ABG pO2 ABG HCO3 ABG Base Excess ABG Hemoglobin Oxyhemoglobin Sodium Potassium Chloride Carbon Dioxide BUN Creatinine Glucose POC Glucose 159 H Calcium Phosphorus Magnesium Direct Bilirubin AST Alkaline Phosphatase C-Reactive Protein Serum Total Protein Total Protein Albumin Prealbumin Xmmcr-3-Dufbbjoxr Gbbui-3-Otnvalkba Gamma Globulins PEP Interpretation Triglycerides 216 H Urine pH Urine Creatinine Urine Total Protein Vancomycin Trough Digoxin Crossmatch 10/24/19 10/24/19 10/25/19 17:42 23:45 04:19 WBC RBC Hgb Hct MCH MCHC RDW Plt Count Lymph % (Auto) [place] % (Auto) Lymph # [place] # Seg Neutrophils % Seg Neuts % (Manual) Lymphocytes % (Manual) Seg Neutrophils # Seg Neutrophils # Man Lymphocytes # (Manual) Monocytes # (Manual) POC ABG pH ABG pH POC ABG pCO2 POC ABG pO2 ABG pO2 ABG HCO3 ABG Base Excess ABG Hemoglobin Oxyhemoglobin Sodium 147 H Potassium Chloride Carbon Dioxide 33 H BUN Creatinine 0.5 L Glucose 111 H POC Glucose 120 H 116 H Calcium Phosphorus Magnesium Direct Bilirubin AST Alkaline Phosphatase C-Reactive Protein Serum Total Protein Total Protein 5.7 L D Albumin 2.5 L Prealbumin Fiypv-3-Yocsltcyd Lpefd-1-Orrwvlapl Gamma Globulins PEP Interpretation Triglycerides 230 H Urine pH Urine Creatinine Urine Total Protein Vancomycin Trough Digoxin Crossmatch 10/25/19 10/25/19 10/25/19 04:19 05:31 12:20 WBC RBC 2.69 L Hgb 8.1 L Hct 23.9 L MCH MCHC RDW 17.3 H Plt Count Lymph % (Auto) [place] % (Auto) Lymph # [place] # Seg Neutrophils % Seg Neuts % (Manual) Lymphocytes % (Manual) Seg Neutrophils # Seg Neutrophils # Man Lymphocytes # (Manual) Monocytes # (Manual) POC ABG pH ABG pH POC ABG pCO2 POC ABG pO2 ABG pO2 ABG HCO3 ABG Base Excess ABG Hemoglobin Oxyhemoglobin Sodium Potassium Chloride Carbon Dioxide BUN Creatinine Glucose POC Glucose 126 H 114 H Calcium Phosphorus Magnesium Direct Bilirubin AST Alkaline Phosphatase C-Reactive Protein Serum Total Protein Total Protein Albumin Prealbumin Mxshb-2-Nprfhkymn Wstny-4-Cculvaiyt Gamma Globulins PEP Interpretation Triglycerides Urine pH Urine Creatinine Urine Total Protein Vancomycin Trough Digoxin Crossmatch 10/25/19 10/25/19 10/26/19 18:30 23:09 06:15 WBC RBC Hgb Hct MCH MCHC RDW Plt Count Lymph % (Auto) [place] % (Auto) Lymph # [place] # Seg Neutrophils % Seg Neuts % (Manual) Lymphocytes % (Manual) Seg Neutrophils # Seg Neutrophils # Man Lymphocytes # (Manual) Monocytes # (Manual) POC ABG pH ABG pH POC ABG pCO2 POC ABG pO2 ABG pO2 ABG HCO3 ABG Base Excess ABG Hemoglobin Oxyhemoglobin Sodium Potassium 3.5 L Chloride Carbon Dioxide BUN Creatinine 0.5 L Glucose 112 H POC Glucose 121 H 107 H Calcium 8.3 L Phosphorus Magnesium Direct Bilirubin AST Alkaline Phosphatase 148 H C-Reactive Protein Serum Total Protein Total Protein 5.9 L Albumin 2.4 L Prealbumin Pvbfc-0-Whgnviagb Akujb-7-Kmvtbxbcw Gamma Globulins PEP Interpretation Triglycerides Urine pH Urine Creatinine Urine Total Protein Vancomycin Trough Digoxin Crossmatch 10/26/19 10/26/19 10/26/19 06:15 12:21 17:35 WBC RBC Hgb Hct MCH MCHC RDW Plt Count Lymph % (Auto) [place] % (Auto) Lymph # [place] # Seg Neutrophils % Seg Neuts % (Manual) Lymphocytes % (Manual) Seg Neutrophils # Seg Neutrophils # Man Lymphocytes # (Manual) Monocytes # (Manual) POC ABG pH ABG pH POC ABG pCO2 POC ABG pO2 ABG pO2 ABG HCO3 ABG Base Excess ABG Hemoglobin Oxyhemoglobin Sodium Potassium Chloride Carbon Dioxide BUN Creatinine Glucose POC Glucose 134 H 141 H Calcium Phosphorus Magnesium Direct Bilirubin AST Alkaline Phosphatase C-Reactive Protein Serum Total Protein Total Protein Albumin Prealbumin Ctlle-1-Tehhlsvkb Kyzwp-8-Vhylhldai Gamma Globulins PEP Interpretation Triglycerides 185 H Urine pH Urine Creatinine Urine Total Protein Vancomycin Trough Digoxin Crossmatch 10/26/19 10/27/19 10/27/19 Unknown 04:30 11:33 WBC RBC Hgb Hct MCH MCHC RDW Plt Count Lymph % (Auto) [place] % (Auto) Lymph # [place] # Seg Neutrophils % Seg Neuts % (Manual) Lymphocytes % (Manual) Seg Neutrophils # Seg Neutrophils # Man Lymphocytes # (Manual) Monocytes # (Manual) POC ABG pH ABG pH POC ABG pCO2 POC ABG pO2 ABG pO2 ABG HCO3 ABG Base Excess ABG Hemoglobin Oxyhemoglobin Sodium Potassium 3.2 L Chloride Carbon Dioxide BUN 23 H Creatinine 0.6 L Glucose 130 H POC Glucose 131 H Calcium 7.9 L Phosphorus Magnesium Direct Bilirubin AST Alkaline Phosphatase C-Reactive Protein Serum Total Protein Total Protein Albumin Prealbumin Huejr-4-Feiwkvhgc Rvtnm-1-Cmvetrqpu Gamma Globulins PEP Interpretation Triglycerides Urine pH 9.0 H Urine Creatinine Urine Total Protein Vancomycin Trough Digoxin Crossmatch 10/27/19 10/28/19 10/28/19 17:45 05:25 05:49 WBC RBC 2.85 L Hgb 8.3 L Hct 26.8 L MCH MCHC 31 L RDW 17.4 H Plt Count Lymph % (Auto) 8.9 L [place] % (Auto) 14.3 H Lymph # 0.8 L [place] # 1.3 H Seg Neutrophils % 76.5 H Seg Neuts % (Manual) Lymphocytes % (Manual) Seg Neutrophils # Seg Neutrophils # Man Lymphocytes # (Manual) Monocytes # (Manual) POC ABG pH ABG pH POC ABG pCO2 POC ABG pO2 ABG pO2 ABG HCO3 ABG Base Excess ABG Hemoglobin Oxyhemoglobin Sodium Potassium Chloride Carbon Dioxide BUN Creatinine Glucose POC Glucose 121 H 120 H Calcium Phosphorus Magnesium Direct Bilirubin AST Alkaline Phosphatase C-Reactive Protein Serum Total Protein Total Protein Albumin Prealbumin Orvqb-7-Ksezbgmux Wbkdf-9-Siflfwutk Gamma Globulins PEP Interpretation Triglycerides Urine pH Urine Creatinine Urine Total Protein Vancomycin Trough Digoxin Crossmatch 10/28/19 10/28/19 10/28/19 07:19 12:07 18:21 WBC RBC Hgb Hct MCH MCHC RDW Plt Count Lymph % (Auto) [place] % (Auto) Lymph # [place] # Seg Neutrophils % Seg Neuts % (Manual) Lymphocytes % (Manual) Seg Neutrophils # Seg Neutrophils # Man Lymphocytes # (Manual) Monocytes # (Manual) POC ABG pH ABG pH POC ABG pCO2 POC ABG pO2 ABG pO2 ABG HCO3 ABG Base Excess ABG Hemoglobin Oxyhemoglobin Sodium Potassium Chloride Carbon Dioxide BUN 23 H Creatinine 0.5 L Glucose 129 H POC Glucose 127 H 130 H Calcium 8.0 L Phosphorus Magnesium Direct Bilirubin AST Alkaline Phosphatase C-Reactive Protein Serum Total Protein Total Protein Albumin Prealbumin Ojpyj-5-Wgxtbzgpi Zsgyy-1-Legwiinan Gamma Globulins PEP Interpretation Triglycerides Urine pH Urine Creatinine Urine Total Protein Vancomycin Trough Digoxin Crossmatch 10/28/19 10/29/19 10/29/19 23:30 05:30 05:30 WBC 11.2 H RBC 3.36 L Hgb 9.7 L Hct 29.4 L MCH MCHC RDW 16.7 H Plt Count Lymph % (Auto) [place] % (Auto) 16.0 H Lymph # [place] # 1.8 H Seg Neutrophils % 70.2 H Seg Neuts % (Manual) Lymphocytes % (Manual) Seg Neutrophils # 7.9 H Seg Neutrophils # Man Lymphocytes # (Manual) Monocytes # (Manual) POC ABG pH ABG pH POC ABG pCO2 POC ABG pO2 ABG pO2 ABG HCO3 ABG Base Excess ABG Hemoglobin Oxyhemoglobin Sodium Potassium Chloride Carbon Dioxide BUN 23 H Creatinine 0.5 L Glucose POC Glucose 130 H Calcium 8.3 L Phosphorus Magnesium Direct Bilirubin AST Alkaline Phosphatase C-Reactive Protein Serum Total Protein Total Protein Albumin Prealbumin Liukf-1-Kakiptvbr Nxtzv-4-Tgmbatxbi Gamma Globulins PEP Interpretation Triglycerides Urine pH Urine Creatinine Urine Total Protein Vancomycin Trough Digoxin Crossmatch 10/29/19 10/29/19 10/29/19 05:52 13:10 18:02 WBC RBC Hgb Hct MCH MCHC RDW Plt Count Lymph % (Auto) [place] % (Auto) Lymph # [place] # Seg Neutrophils % Seg Neuts % (Manual) Lymphocytes % (Manual) Seg Neutrophils # Seg Neutrophils # Man Lymphocytes # (Manual) Monocytes # (Manual) POC ABG pH ABG pH POC ABG pCO2 POC ABG pO2 ABG pO2 ABG HCO3 ABG Base Excess ABG Hemoglobin Oxyhemoglobin Sodium Potassium Chloride Carbon Dioxide BUN Creatinine Glucose POC Glucose 111 H 140 H 140 H Calcium Phosphorus Magnesium Direct Bilirubin AST Alkaline Phosphatase C-Reactive Protein Serum Total Protein Total Protein Albumin Prealbumin Pwdne-4-Dccnocyiu Bddte-1-Dzjdaobeh Gamma Globulins PEP Interpretation Triglycerides Urine pH Urine Creatinine Urine Total Protein Vancomycin Trough Digoxin Crossmatch 10/29/19 10/30/19 10/30/19 23:58 01:05 05:15 WBC RBC Hgb Hct MCH MCHC RDW Plt Count Lymph % (Auto) [place] % (Auto) Lymph # [place] # Seg Neutrophils % Seg Neuts % (Manual) Lymphocytes % (Manual) Seg Neutrophils # Seg Neutrophils # Man Lymphocytes # (Manual) Monocytes # (Manual) POC ABG pH ABG pH POC ABG pCO2 62.0 H POC ABG pO2 168 H ABG pO2 ABG HCO3 ABG Base Excess ABG Hemoglobin Oxyhemoglobin Sodium 147 H Potassium Chloride 107.8 H Carbon Dioxide BUN 26 H Creatinine 0.5 L Glucose 139 H POC Glucose 161 H Calcium Phosphorus Magnesium 2.40 H Direct Bilirubin AST Alkaline Phosphatase C-Reactive Protein Serum Total Protein Total Protein Albumin Prealbumin Eziax-8-Mrdrhqybe Roqqz-6-Zdjcpxasm Gamma Globulins PEP Interpretation Triglycerides Urine pH Urine Creatinine Urine Total Protein Vancomycin Trough Digoxin Crossmatch 10/30/19 10/30/19 10/30/19 05:15 06:32 09:44 WBC 13.8 H RBC 3.59 L Hgb 10.1 L Hct 32.4 L MCH MCHC 31 L RDW 17.4 H Plt Count Lymph % (Auto) 11.2 L [place] % (Auto) 13.6 H Lymph # [place] # 1.9 H Seg Neutrophils % 75.1 H Seg Neuts % (Manual) Lymphocytes % (Manual) Seg Neutrophils # 10.4 H Seg Neutrophils # Man Lymphocytes # (Manual) Monocytes # (Manual) POC ABG pH ABG pH POC ABG pCO2 51.7 H POC ABG pO2 111 H ABG pO2 ABG HCO3 ABG Base Excess ABG Hemoglobin Oxyhemoglobin Sodium Potassium Chloride Carbon Dioxide BUN Creatinine Glucose POC Glucose 141 H Calcium Phosphorus Magnesium Direct Bilirubin AST Alkaline Phosphatase C-Reactive Protein Serum Total Protein Total Protein Albumin Prealbumin Uapkp-5-Yjfumywrr Qrqlr-5-Zqfdevwjj Gamma Globulins PEP Interpretation Triglycerides Urine pH Urine Creatinine Urine Total Protein Vancomycin Trough Digoxin Crossmatch 10/30/19 10/31/19 10/31/19 18:10 04:18 04:18 WBC 11.7 H RBC 3.11 L Hgb 9.0 L Hct 27.9 L MCH MCHC RDW 17.1 H Plt Count Lymph % (Auto) [place] % (Auto) Lymph # [place] # Seg Neutrophils % Seg Neuts % (Manual) Lymphocytes % (Manual) Seg Neutrophils # Seg Neutrophils # Man Lymphocytes # (Manual) Monocytes # (Manual) POC ABG pH ABG pH POC ABG pCO2 POC ABG pO2 ABG pO2 ABG HCO3 ABG Base Excess ABG Hemoglobin Oxyhemoglobin Sodium 148 H Potassium Chloride 108.7 H Carbon Dioxide BUN 37 H Creatinine 0.7 L Glucose 102 H POC Glucose 131 H Calcium Phosphorus Magnesium Direct Bilirubin AST Alkaline Phosphatase C-Reactive Protein Serum Total Protein Total Protein Albumin Prealbumin Plhzc-1-Jdwnqpxdb Opjyf-3-Wesnlinyg Gamma Globulins PEP Interpretation Triglycerides Urine pH Urine Creatinine Urine Total Protein Vancomycin Trough Digoxin Crossmatch 10/31/19 10/31/19 10/31/19 11:32 12:55 18:10 WBC RBC Hgb Hct MCH MCHC RDW Plt Count Lymph % (Auto) [place] % (Auto) Lymph # [place] # Seg Neutrophils % Seg Neuts % (Manual) Lymphocytes % (Manual) Seg Neutrophils # Seg Neutrophils # Man Lymphocytes # (Manual) Monocytes # (Manual) POC ABG pH ABG pH POC ABG pCO2 57.9 H POC ABG pO2 135 H ABG pO2 ABG HCO3 ABG Base Excess ABG Hemoglobin Oxyhemoglobin Sodium Potassium Chloride Carbon Dioxide BUN Creatinine Glucose POC Glucose 120 H Calcium Phosphorus Magnesium Direct Bilirubin AST Alkaline Phosphatase C-Reactive Protein Serum Total Protein Total Protein Albumin Prealbumin Ldhze-2-Xgxarjnue Zbzyp-9-Zpdylhqlh Gamma Globulins PEP Interpretation Triglycerides Urine pH Urine Creatinine Urine Total Protein Vancomycin Trough 41.7 H Digoxin Crossmatch 10/31/19 11/01/19 11/01/19 23:08 05:30 05:30 WBC 14.6 H RBC 3.13 L Hgb 8.9 L Hct 27.7 L MCH MCHC RDW 17.0 H Plt Count Lymph % (Auto) [place] % (Auto) Lymph # [place] # Seg Neutrophils % Seg Neuts % (Manual) Lymphocytes % (Manual) Seg Neutrophils # Seg Neutrophils # Man Lymphocytes # (Manual) Monocytes # (Manual) POC ABG pH ABG pH POC ABG pCO2 POC ABG pO2 ABG pO2 ABG HCO3 ABG Base Excess ABG Hemoglobin Oxyhemoglobin Sodium 149 H Potassium Chloride 109.0 H Carbon Dioxide BUN 26 H Creatinine 0.7 L Glucose 129 H POC Glucose 109 H Calcium Phosphorus Magnesium Direct Bilirubin AST Alkaline Phosphatase C-Reactive Protein Serum Total Protein Total Protein Albumin Prealbumin Twaeq-5-Xdzmgjujk Dxcmo-3-Yaxhgogak Gamma Globulins PEP Interpretation Triglycerides Urine pH Urine Creatinine Urine Total Protein Vancomycin Trough Digoxin Crossmatch 11/01/19 11/01/19 11/01/19 06:09 06:10 11:52 WBC RBC Hgb Hct MCH MCHC RDW Plt Count Lymph % (Auto) [place] % (Auto) Lymph # [place] # Seg Neutrophils % Seg Neuts % (Manual) Lymphocytes % (Manual) Seg Neutrophils # Seg Neutrophils # Man Lymphocytes # (Manual) Monocytes # (Manual) POC ABG pH ABG pH POC ABG pCO2 51.3 H POC ABG pO2 71 L ABG pO2 ABG HCO3 ABG Base Excess ABG Hemoglobin Oxyhemoglobin Sodium Potassium Chloride Carbon Dioxide BUN Creatinine Glucose POC Glucose 113 H 106 H Calcium Phosphorus Magnesium Direct Bilirubin AST Alkaline Phosphatase C-Reactive Protein Serum Total Protein Total Protein Albumin Prealbumin Lwnol-0-Yuapfmynd Henwy-3-Ujlgcahmv Gamma Globulins PEP Interpretation Triglycerides Urine pH Urine Creatinine Urine Total Protein Vancomycin Trough Digoxin Crossmatch 11/01/19 11/02/19 11/02/19 18:18 03:40 03:40 WBC RBC 2.36 L Hgb 7.2 L Hct 20.8 L D MCH MCHC 35 H RDW 16.8 H Plt Count Lymph % (Auto) [place] % (Auto) Lymph # [place] # Seg Neutrophils % Seg Neuts % (Manual) Lymphocytes % (Manual) Seg Neutrophils # Seg Neutrophils # Man Lymphocytes # (Manual) Monocytes # (Manual) POC ABG pH ABG pH POC ABG pCO2 POC ABG pO2 ABG pO2 ABG HCO3 ABG Base Excess ABG Hemoglobin Oxyhemoglobin Sodium 157 H D Potassium 3.0 L D Chloride 117.2 H Carbon Dioxide BUN 23 H Creatinine 0.6 L Glucose 101 H POC Glucose 120 H Calcium 6.4 L D Phosphorus Magnesium Direct Bilirubin AST Alkaline Phosphatase C-Reactive Protein Serum Total Protein Total Protein Albumin Prealbumin Azmmh-2-Sofmtrtdz Nwhpp-7-Uiisjtviz Gamma Globulins PEP Interpretation Triglycerides Urine pH Urine Creatinine Urine Total Protein Vancomycin Trough Digoxin Crossmatch 11/02/19 11/02/19 11/02/19 04:48 05:30 12:43 WBC RBC Hgb Hct MCH MCHC RDW Plt Count Lymph % (Auto) [place] % (Auto) Lymph # [place] # Seg Neutrophils % Seg Neuts % (Manual) Lymphocytes % (Manual) Seg Neutrophils # Seg Neutrophils # Man Lymphocytes # (Manual) Monocytes # (Manual) POC ABG pH ABG pH POC ABG pCO2 50.1 H POC ABG pO2 74 L ABG pO2 ABG HCO3 ABG Base Excess ABG Hemoglobin Oxyhemoglobin Sodium 149 H D Potassium Chloride 110.0 H Carbon Dioxide BUN 23 H Creatinine 0.6 L Glucose POC Glucose 109 H Calcium 8.1 L D Phosphorus Magnesium 2.40 H Direct Bilirubin AST Alkaline Phosphatase C-Reactive Protein Serum Total Protein Total Protein Albumin Prealbumin Qyfeu-0-Rkrsbuxwm Vamfr-2-Bmetigudj Gamma Globulins PEP Interpretation Triglycerides Urine pH Urine Creatinine Urine Total Protein Vancomycin Trough Digoxin Crossmatch 11/03/19 11/03/19 11/03/19 03:42 03:42 04:13 WBC RBC 2.93 L Hgb 8.5 L Hct 25.8 L MCH MCHC RDW 16.9 H Plt Count Lymph % (Auto) [place] % (Auto) Lymph # [place] # Seg Neutrophils % Seg Neuts % (Manual) Lymphocytes % (Manual) Seg Neutrophils # Seg Neutrophils # Man Lymphocytes # (Manual) Monocytes # (Manual) POC ABG pH 7.540 H ABG pH POC ABG pCO2 POC ABG pO2 51 L ABG pO2 ABG HCO3 ABG Base Excess ABG Hemoglobin Oxyhemoglobin Sodium 147 H Potassium 3.5 L D Chloride 108.6 H Carbon Dioxide BUN Creatinine 0.6 L Glucose 109 H POC Glucose Calcium 8.3 L Phosphorus Magnesium Direct Bilirubin AST Alkaline Phosphatase C-Reactive Protein Serum Total Protein Total Protein Albumin Prealbumin Kuseo-3-Yxmzpfisa Lbbkc-6-Yseguaiyo Gamma Globulins PEP Interpretation Triglycerides Urine pH Urine Creatinine Urine Total Protein Vancomycin Trough Digoxin Crossmatch 12/11/03/19 11/03/19 04:28 12:04 23:02 WBC RBC Hgb Hct MCH MCHC RDW Plt Count Lymph % (Auto) [place] % (Auto) Lymph # [place] # Seg Neutrophils % Seg Neuts % (Manual) Lymphocytes % (Manual) Seg Neutrophils # Seg Neutrophils # Man Lymphocytes # (Manual) Monocytes # (Manual) POC ABG pH ABG pH POC ABG pCO2 45.4 H POC ABG pO2 ABG pO2 ABG HCO3 ABG Base Excess ABG Hemoglobin Oxyhemoglobin Sodium Potassium Chloride Carbon Dioxide BUN Creatinine Glucose POC Glucose 109 H 111 H Calcium Phosphorus Magnesium Direct Bilirubin AST Alkaline Phosphatase C-Reactive Protein Serum Total Protein Total Protein Albumin Prealbumin Ypqku-6-Nscgoknmm [id number] Gamma Globulins PEP Interpretation Triglycerides Urine pH Urine Creatinine Urine Total Protein Vancomycin Trough Digoxin Crossmatch 11/04/19 11/04/19 11/04/19 05:00 05:00 05:19 WBC RBC 2.96 L Hgb 8.6 L Hct 25.5 L MCH MCHC RDW 16.7 H Plt Count Lymph % (Auto) Gre[place] % (Auto) Lymph # Greer # Seg Neutrophils % Seg Neuts % (Manual) Lymphocytes % (Manual) Seg Neutrophils # Seg Neutrophils # Man Lymphocytes # (Manual) Monocytes # (Manual) POC ABG pH ABG pH POC ABG pCO2 POC ABG pO2 ABG pO2 ABG HCO3 ABG Base Excess ABG Hemoglobin Oxyhemoglobin Sodium Potassium 3.5 L Chloride Carbon Dioxide BUN Creatinine 0.5 L Glucose 111 H POC Glucose 106 H Calcium 8.1 L Phosphorus Magnesium Direct Bilirubin AST Alkaline Phosphatase C-Reactive Protein Serum Total Protein Total Protein Albumin Prealbumin Icynk-0-Zerssqfsp Bwirx-2-Lhqotmsja Gamma Globulins PEP Interpretation Triglycerides Urine pH Urine Creatinine Urine Total Protein Vancomycin Trough Digoxin Crossmatch 11/04/19 11/05/19 11/05/19 12:40 00:28 04:19 WBC 12.4 H RBC 2.98 L Hgb 8.5 L Hct 25.5 L MCH MCHC RDW 16.6 H Plt Count Lymph % (Auto) [place] % (Auto) Lymph # [place] # Seg Neutrophils % Seg Neuts % (Manual) Lymphocytes % (Manual) Seg Neutrophils # Seg Neutrophils # Man Lymphocytes # (Manual) Monocytes # (Manual) POC ABG pH ABG pH POC ABG pCO2 POC ABG pO2 ABG pO2 ABG HCO3 ABG Base Excess ABG Hemoglobin Oxyhemoglobin Sodium Potassium Chloride Carbon Dioxide BUN Creatinine Glucose POC Glucose 109 H 132 H Calcium Phosphorus Magnesium Direct Bilirubin AST Alkaline Phosphatase C-Reactive Protein Serum Total Protein Total Protein Albumin Prealbumin Noows-6-Qnfwysops Rekox-8-Nccjtmdji Gamma Globulins PEP Interpretation Triglycerides Urine pH Urine Creatinine Urine Total Protein Vancomycin Trough Digoxin Crossmatch 11/05/19 11/05/19 11/05/19 04:19 05:40 13:14 WBC RBC Hgb Hct MCH MCHC RDW Plt Count Lymph % (Auto) [place] % (Auto) Lymph # [place] # Seg Neutrophils % Seg Neuts % (Manual) Lymphocytes % (Manual) Seg Neutrophils # Seg Neutrophils # Man Lymphocytes # (Manual) Monocytes # (Manual) POC ABG pH ABG pH POC ABG pCO2 POC ABG pO2 ABG pO2 ABG HCO3 ABG Base Excess ABG Hemoglobin Oxyhemoglobin Sodium Potassium 3.4 L Chloride Carbon Dioxide BUN Creatinine 0.4 L Glucose 106 H POC Glucose 136 H 145 H Calcium 8.2 L Phosphorus Magnesium Direct Bilirubin AST Alkaline Phosphatase C-Reactive Protein Serum Total Protein Total Protein Albumin Prealbumin Prfwl-1-Tsfxywunv Vjxpq-3-Ixmyxlset Gamma Globulins PEP Interpretation Triglycerides Urine pH Urine Creatinine Urine Total Protein Vancomycin Trough Digoxin Crossmatch 11/05/19 11/05/19 11/06/19 18:29 23:42 05:00 WBC 12.2 H RBC 2.89 L Hgb 8.2 L Hct 24.9 L MCH MCHC RDW 16.4 H Plt Count Lymph % (Auto) [place] % (Auto) Lymph # [place] # Seg Neutrophils % Seg Neuts % (Manual) Lymphocytes % (Manual) Seg Neutrophils # Seg Neutrophils # Man Lymphocytes # (Manual) Monocytes # (Manual) POC ABG pH ABG pH POC ABG pCO2 POC ABG pO2 ABG pO2 ABG HCO3 ABG Base Excess ABG Hemoglobin Oxyhemoglobin Sodium Potassium Chloride Carbon Dioxide BUN Creatinine Glucose POC Glucose 138 H 117 H Calcium Phosphorus Magnesium Direct Bilirubin AST Alkaline Phosphatase C-Reactive Protein Serum Total Protein Total Protein Albumin Prealbumin Qlqlr-6-Ziykjhhwn Fuaxr-6-Qpaoeymoj Gamma Globulins PEP Interpretation Triglycerides Urine pH Urine Creatinine Urine Total Protein Vancomycin Trough Digoxin Crossmatch 11/06/19 11/06/19 11/06/19 05:00 05:22 17:39 WBC RBC Hgb Hct MCH MCHC RDW Plt Count Lymph % (Auto) [place] % (Auto) Lymph # [place] # Seg Neutrophils % Seg Neuts % (Manual) Lymphocytes % (Manual) Seg Neutrophils # Seg Neutrophils # Man Lymphocytes # (Manual) Monocytes # (Manual) POC ABG pH ABG pH POC ABG pCO2 POC ABG pO2 ABG pO2 ABG HCO3 ABG Base Excess ABG Hemoglobin Oxyhemoglobin Sodium Potassium Chloride Carbon Dioxide BUN Creatinine 0.4 L Glucose 114 H POC Glucose 121 H 110 H Calcium 8.2 L Phosphorus Magnesium Direct Bilirubin AST Alkaline Phosphatase C-Reactive Protein Serum Total Protein Total Protein Albumin Prealbumin Knabi-6-Denjlvhhc Vnghr-7-Qtpgcatmq Gamma Globulins PEP Interpretation Triglycerides Urine pH Urine Creatinine Urine Total Protein Vancomycin Trough Digoxin Crossmatch 11/06/19 11/07/19 11/07/19 23:29 04:06 04:06 WBC 13.0 H RBC 2.80 L Hgb 7.9 L Hct 24.0 L MCH MCHC RDW 16.5 H Plt Count Lymph % (Auto) 7.0 L [place] % (Auto) Lymph # 0.9 L [place] # Seg Neutrophils % 86.3 H Seg Neuts % (Manual) Lymphocytes % (Manual) Seg Neutrophils # 11.2 H Seg Neutrophils # Man Lymphocytes # (Manual) Monocytes # (Manual) POC ABG pH ABG pH POC ABG pCO2 POC ABG pO2 ABG pO2 ABG HCO3 ABG Base Excess ABG Hemoglobin Oxyhemoglobin Sodium Potassium Chloride Carbon Dioxide BUN Creatinine 0.4 L Glucose 110 H POC Glucose 113 H Calcium 8.2 L Phosphorus Magnesium Direct Bilirubin AST Alkaline Phosphatase C-Reactive Protein Serum Total Protein Total Protein Albumin Prealbumin Lyumq-4-Unrxdlswo Steqv-5-Wjruwxczm Gamma Globulins PEP Interpretation Triglycerides Urine pH Urine Creatinine Urine Total Protein Vancomycin Trough Digoxin Crossmatch 11/07/19 11/07/19 11/07/19 05:43 12:47 18:19 WBC RBC Hgb Hct MCH MCHC RDW Plt Count Lymph % (Auto) [place] % (Auto) Lymph # [place] # Seg Neutrophils % Seg Neuts % (Manual) Lymphocytes % (Manual) Seg Neutrophils # Seg Neutrophils # Man Lymphocytes # (Manual) Monocytes # (Manual) POC ABG pH ABG pH POC ABG pCO2 POC ABG pO2 ABG pO2 ABG HCO3 ABG Base Excess ABG Hemoglobin Oxyhemoglobin Sodium Potassium Chloride Carbon Dioxide BUN Creatinine Glucose POC Glucose 114 H 120 H 112 H Calcium Phosphorus Magnesium Direct Bilirubin AST Alkaline Phosphatase C-Reactive Protein Serum Total Protein Total Protein Albumin Prealbumin Lljcd-9-Lxcmvlhum Rmsgy-2-Oxoadllbo Gamma Globulins PEP Interpretation Triglycerides Urine pH Urine Creatinine Urine Total Protein Vancomycin Trough Digoxin Crossmatch 11/08/19 11/08/19 11/08/19 03:45 03:45 11:43 WBC 12.7 H RBC 2.82 L Hgb 7.8 L Hct 24.4 L MCH MCHC RDW 16.5 H Plt Count Lymph % (Auto) 9.4 L [place] % (Auto) Lymph # [place] # 0.9 H Seg Neutrophils % 83.0 H Seg Neuts % (Manual) Lymphocytes % (Manual) Seg Neutrophils # 10.6 H Seg Neutrophils # Man Lymphocytes # (Manual) Monocytes # (Manual) POC ABG pH ABG pH POC ABG pCO2 POC ABG pO2 ABG pO2 ABG HCO3 ABG Base Excess ABG Hemoglobin Oxyhemoglobin Sodium Potassium Chloride Carbon Dioxide BUN Creatinine 0.4 L Glucose 107 H POC Glucose 118 H Calcium Phosphorus Magnesium Direct Bilirubin AST Alkaline Phosphatase C-Reactive Protein Serum Total Protein Total Protein Albumin Prealbumin Ijjen-8-Ianhrwmaf Vfwzj-6-Rmffshder Gamma Globulins PEP Interpretation Triglycerides Urine pH Urine Creatinine Urine Total Protein Vancomycin Trough Digoxin Crossmatch 11/08/19 11/09/19 11/09/19 23:45 12:41 12:56 WBC RBC Hgb Hct MCH MCHC RDW Plt Count Lymph % (Auto) [place] % (Auto) Lymph # [place] # Seg Neutrophils % Seg Neuts % (Manual) Lymphocytes % (Manual) Seg Neutrophils # Seg Neutrophils # Man Lymphocytes # (Manual) Monocytes # (Manual) POC ABG pH ABG pH POC ABG pCO2 POC ABG pO2 ABG pO2 ABG HCO3 ABG Base Excess ABG Hemoglobin Oxyhemoglobin Sodium Potassium Chloride Carbon Dioxide BUN Creatinine Glucose POC Glucose 113 H 107 H 122 H Calcium Phosphorus Magnesium Direct Bilirubin AST Alkaline Phosphatase C-Reactive Protein Serum Total Protein Total Protein Albumin Prealbumin Yhrui-5-Bjtcasgwi Nupbt-1-Ktmfxtlyp Gamma Globulins PEP Interpretation Triglycerides Urine pH Urine Creatinine Urine Total Protein Vancomycin Trough Digoxin Crossmatch 11/10/19 11/10/19 11/11/19 05:12 12:20 12:13 WBC RBC Hgb Hct MCH MCHC RDW Plt Count Lymph % (Auto) [place] % (Auto) Lymph # [place] # Seg Neutrophils % Seg Neuts % (Manual) Lymphocytes % (Manual) Seg Neutrophils # Seg Neutrophils # Man Lymphocytes # (Manual) Monocytes # (Manual) POC ABG pH ABG pH POC ABG pCO2 POC ABG pO2 ABG pO2 ABG HCO3 ABG Base Excess ABG Hemoglobin Oxyhemoglobin Sodium Potassium Chloride Carbon Dioxide BUN Creatinine Glucose POC Glucose 127 H 125 H 107 H Calcium Phosphorus Magnesium Direct Bilirubin AST Alkaline Phosphatase C-Reactive Protein Serum Total Protein Total Protein Albumin Prealbumin Onirc-3-Vkhqyures Grubg-2-Sqyjpoqtl Gamma Globulins PEP Interpretation Triglycerides Urine pH Urine Creatinine Urine Total Protein Vancomycin Trough Digoxin Crossmatch 11/11/19 11/11/19 11/12/19 17:29 22:20 06:00 WBC RBC 2.77 L Hgb 7.8 L Hct 23.4 L MCH MCHC RDW 16.6 H Plt Count Lymph % (Auto) 11.9 L [place] % (Auto) 8.9 H Lymph # [place] # 0.9 H Seg Neutrophils % 78.2 H Seg Neuts % (Manual) Lymphocytes % (Manual) Seg Neutrophils # 8.2 H Seg Neutrophils # Man Lymphocytes # (Manual) Monocytes # (Manual) POC ABG pH ABG pH POC ABG pCO2 POC ABG pO2 ABG pO2 ABG HCO3 ABG Base Excess ABG Hemoglobin Oxyhemoglobin Sodium Potassium Chloride Carbon Dioxide BUN Creatinine Glucose POC Glucose 120 H 109 H Calcium Phosphorus Magnesium Direct Bilirubin AST Alkaline Phosphatase C-Reactive Protein Serum Total Protein Total Protein Albumin Prealbumin Tqyzz-5-Qrtvfilct Jqmig-8-Ebsyxbzpo Gamma Globulins PEP Interpretation Triglycerides Urine pH Urine Creatinine Urine Total Protein Vancomycin Trough Digoxin Crossmatch 11/12/19 11/12/19 11/12/19 07:52 11:58 23:44 WBC RBC Hgb Hct MCH MCHC RDW Plt Count Lymph % (Auto) [place] % (Auto) Lymph # [place] # Seg Neutrophils % Seg Neuts % (Manual) Lymphocytes % (Manual) Seg Neutrophils # Seg Neutrophils # Man Lymphocytes # (Manual) Monocytes # (Manual) POC ABG pH ABG pH POC ABG pCO2 POC ABG pO2 ABG pO2 ABG HCO3 ABG Base Excess ABG Hemoglobin Oxyhemoglobin Sodium Potassium Chloride Carbon Dioxide BUN Creatinine Glucose POC Glucose 120 H 140 H 116 H Calcium Phosphorus Magnesium Direct Bilirubin AST Alkaline Phosphatase C-Reactive Protein Serum Total Protein Total Protein Albumin Prealbumin Dpxuj-5-Hqwaseeqw Kphfa-8-Akyhruymg Gamma Globulins PEP Interpretation Triglycerides Urine pH Urine Creatinine Urine Total Protein Vancomycin Trough Digoxin Crossmatch 11/13/19 11/13/19 11/13/19 04:33 04:33 13:43 WBC 11.2 H RBC 2.90 L Hgb 8.1 L Hct 24.5 L MCH MCHC RDW 16.5 H Plt Count Lymph % (Auto) 10.1 L [place] % (Auto) 7.6 H Lymph # 1.1 L [place] # 0.9 H Seg Neutrophils % 81.1 H Seg Neuts % (Manual) Lymphocytes % (Manual) Seg Neutrophils # 9.1 H Seg Neutrophils # Man Lymphocytes # (Manual) Monocytes # (Manual) POC ABG pH ABG pH POC ABG pCO2 POC ABG pO2 ABG pO2 ABG HCO3 ABG Base Excess ABG Hemoglobin Oxyhemoglobin Sodium 135 L Potassium Chloride 91.9 L Carbon Dioxide BUN Creatinine 0.6 L Glucose POC Glucose 122 H Calcium Phosphorus Magnesium Direct Bilirubin AST Alkaline Phosphatase C-Reactive Protein Serum Total Protein Total Protein Albumin Prealbumin Sljjp-6-Wfacqhdme Zdfzj-0-Jqhqtdnvo Gamma Globulins PEP Interpretation Triglycerides Urine pH Urine Creatinine Urine Total Protein Vancomycin Trough Digoxin Crossmatch 11/13/19 11/14/19 11/15/19 17:57 12:35 07:10 WBC 14.8 H RBC 2.89 L Hgb 7.8 L Hct 24.2 L MCH 27 L MCHC RDW 16.9 H Plt Count Lymph % (Auto) [place] % (Auto) Lymph # [place] # Seg Neutrophils % Seg Neuts % (Manual) Lymphocytes % (Manual) Seg Neutrophils # Seg Neutrophils # Man Lymphocytes # (Manual) Monocytes # (Manual) POC ABG pH ABG pH POC ABG pCO2 POC ABG pO2 ABG pO2 ABG HCO3 ABG Base Excess ABG Hemoglobin Oxyhemoglobin Sodium Potassium Chloride Carbon Dioxide BUN Creatinine Glucose POC Glucose 127 H 148 H Calcium Phosphorus Magnesium Direct Bilirubin AST Alkaline Phosphatase C-Reactive Protein Serum Total Protein Total Protein Albumin Prealbumin Bvnku-4-Ljwqrsqek Vyqeb-8-Nsvyqhvlo Gamma Globulins PEP Interpretation Triglycerides Urine pH Urine Creatinine Urine Total Protein Vancomycin Trough Digoxin Crossmatch 11/15/19 11/15/19 11/16/19 07:10 20:16 10:26 WBC 14.4 H RBC 2.79 L Hgb 7.6 L Hct 23.5 L MCH 27 L MCHC RDW 17.0 H Plt Count Lymph % (Auto) [place] % (Auto) Lymph # [place] # Seg Neutrophils % Seg Neuts % (Manual) Lymphocytes % (Manual) Seg Neutrophils # Seg Neutrophils # Man Lymphocytes # (Manual) Monocytes # (Manual) POC ABG pH ABG pH POC ABG pCO2 POC ABG pO2 ABG pO2 ABG HCO3 ABG Base Excess ABG Hemoglobin Oxyhemoglobin Sodium 133 L 136 L Potassium 3.5 L Chloride 93.7 L 97.4 L Carbon Dioxide BUN Creatinine 0.6 L 0.6 L Glucose 130 H POC Glucose Calcium Phosphorus Magnesium Direct Bilirubin AST Alkaline Phosphatase C-Reactive Protein Serum Total Protein Total Protein Albumin Prealbumin Kbnqh-6-Ojxhxqygh Afbwl-8-Jozxuvljm Gamma Globulins PEP Interpretation Triglycerides Urine pH Urine Creatinine Urine Total Protein Vancomycin Trough Digoxin Crossmatch 11/16/19 11/17/19 11/17/19 13:01 00:40 07:22 WBC 14.0 H RBC 2.71 L Hgb 7.4 L Hct 22.8 L MCH 27 L MCHC RDW 17.2 H Plt Count Lymph % (Auto) [place] % (Auto) Lymph # [place] # Seg Neutrophils % Seg Neuts % (Manual) Lymphocytes % (Manual) Seg Neutrophils # Seg Neutrophils # Man Lymphocytes # (Manual) Monocytes # (Manual) POC ABG pH ABG pH POC ABG pCO2 POC ABG pO2 ABG pO2 ABG HCO3 ABG Base Excess ABG Hemoglobin Oxyhemoglobin Sodium Potassium Chloride Carbon Dioxide BUN Creatinine Glucose POC Glucose 117 H 124 H Calcium Phosphorus Magnesium Direct Bilirubin AST Alkaline Phosphatase C-Reactive Protein Serum Total Protein Total Protein Albumin Prealbumin Audjo-0-Fwjjfiggq Svffv-4-Gznkgafvg Gamma Globulins PEP Interpretation Triglycerides Urine pH Urine Creatinine Urine Total Protein Vancomycin Trough Digoxin Crossmatch 11/17/19 11/17/19 11/17/19 07:22 12:00 17:57 WBC RBC Hgb Hct MCH MCHC RDW Plt Count Lymph % (Auto) [place] % (Auto) Lymph # [place] # Seg Neutrophils % Seg Neuts % (Manual) Lymphocytes % (Manual) Seg Neutrophils # Seg Neutrophils # Man Lymphocytes # (Manual) Monocytes # (Manual) POC ABG pH ABG pH POC ABG pCO2 POC ABG pO2 ABG pO2 ABG HCO3 ABG Base Excess ABG Hemoglobin Oxyhemoglobin Sodium 136 L Potassium Chloride 96.1 L Carbon Dioxide BUN 7 L Creatinine 0.5 L Glucose POC Glucose 130 H 111 H Calcium Phosphorus Magnesium Direct Bilirubin AST Alkaline Phosphatase C-Reactive Protein Serum Total Protein Total Protein Albumin Prealbumin Blgau-0-Tqylgmcoi Lfoca-1-Haplpnxvx Gamma Globulins PEP Interpretation Triglycerides Urine pH Urine Creatinine Urine Total Protein Vancomycin Trough Digoxin Crossmatch 11/18/19 11/18/19 11/18/19 06:03 12:12 17:54 WBC RBC Hgb Hct MCH MCHC RDW Plt Count Lymph % (Auto) [place] % (Auto) Lymph # [place] # Seg Neutrophils % Seg Neuts % (Manual) Lymphocytes % (Manual) Seg Neutrophils # Seg Neutrophils # Man Lymphocytes # (Manual) Monocytes # (Manual) POC ABG pH ABG pH POC ABG pCO2 POC ABG pO2 ABG pO2 ABG HCO3 ABG Base Excess ABG Hemoglobin Oxyhemoglobin Sodium Potassium Chloride Carbon Dioxide BUN Creatinine Glucose POC Glucose 113 H 124 H 128 H Calcium Phosphorus Magnesium Direct Bilirubin AST Alkaline Phosphatase C-Reactive Protein Serum Total Protein Total Protein Albumin Prealbumin Fndfq-5-Nbcpmuaww Dsvdp-0-Cxwbdhers Gamma Globulins PEP Interpretation Triglycerides Urine pH Urine Creatinine Urine Total Protein Vancomycin Trough Digoxin Crossmatch 11/19/19 11/19/19 00:54 08:03 WBC RBC Hgb Hct MCH MCHC RDW Plt Count Lymph % (Auto) [place] % (Auto) Lymph # [place] # Seg Neutrophils % Seg Neuts % (Manual) Lymphocytes % (Manual) Seg Neutrophils # Seg Neutrophils # Man Lymphocytes # (Manual) Monocytes # (Manual) POC ABG pH ABG pH POC ABG pCO2 POC ABG pO2 ABG pO2 ABG HCO3 ABG Base Excess ABG Hemoglobin Oxyhemoglobin Sodium Potassium Chloride Carbon Dioxide BUN Creatinine Glucose POC Glucose 130 H 122 H Calcium Phosphorus Magnesium Direct Bilirubin AST Alkaline Phosphatase C-Reactive Protein Serum Total Protein Total Protein Albumin Prealbumin Oxnsg-3-Wqxvlffnx Waugb-7-Bitwoasqz Gamma Globulins PEP Interpretation Triglycerides Urine pH Urine Creatinine Urine Total Protein Vancomycin Trough Digoxin Crossmatch
[2019-11-19] MEDS ORDERED: SODIUM CHLORIDE 0.9% 500 ML 500 ML IV ONE (14:57)
--- NOTE | 2019-11-19 17:27 | Progress Note ---
Assessment and Plan Assessment and plan: Sepsis, improved. Completed Abx per ID. Enterococcus on cultures. . Dehiscence of closure of fascia s/p ex lap with closure of abdominal wall and wound vac placement (10/05) - POD#37; s/p Re-exploration, washout, transection of colon, Abthera placement - 10/13 - POD#29; s/p abd washout, partial omentectomy, partial colectomy with colostomy - 10/16 POD#26. s/p abd washout, feeding tube placement, AbThera placement - 10/19 - POD#23; Abdominal washout and closure - 10/22 - POD#20 Acute Respiratory failure with hypoxia -Extubated 10/25/19 -Re-intubated 10/30 -Patient self extubated morning of 11/04, now on Oxygen by [place] -Multifactorial secondary to pneumonia, pneumothorax and COPD Sepsis Completed Merrem, Micafungin ID Physician following Left pneumothorax s/p chest tube placed 10/30 Resolved. Left lower lobe pneumonia -CTA chest showed left lower lobe consolidation with pleural effusion COPD -Stable -cont neb tx GUILLERMO on CKD -due to ATN due to sepsis -Resolved. -No hydronephrosis on CT Severe Metabolic acidosis -Improved Acute Toxic Metabolic Encephalopathy/Delirium Tremens. Resolved. -Continue CIWA protocol due to hx of ETOH abuse, 6packs a day -Head CT scan negative for acute findings Acute blood loss anemia -H/H stable -Continue to monitor H&H and transfuse for hb<7 SVT, Atrial fib/flutter with RVR -treated with adenosine x1 -off amiodarone and cardizem drip. On oral amiodarone -HR currently controlled -Cardiology following Hx of Hypertension -Stable Hyperlipidemia -stable Atypical chest pain -probably secondary to pneumonitis -troponin levels neg Hx of MO/CAD -s/p PCI of the circumflex and second vessel POBA of the distal LAD occlusion. Left ventricle fraction of 45-50%. Morbid obesity with BMI of 43.4 -Lifestyle modification recommended Moderate Protein calorie malnutrition -Nutrition following Tobacco abuse -Cessation recommended Morbid obesity with BMI of 43.4 -Lifestyle modification recommended DVT and GI ppx: Lovenox/PPI He feels better. Plan is to discharge to acute rehab when accepted History Interval history: feels better, Still has gen weakness Tolerating diet Less shortness of breath Hospitalist Physical - Physical exam Narrative exam: Gen: Not in acute distress, On Oxygen by [place] HEENT: Normocephalic, atraumatic Neck: supple, no JVD Heart: S1 and S2 reg, no murmurs, rubs or gallop Lungs: Chest tube on left, Abd: soft, NT, ostomy, wound vac, left drain, midline wound covered with dressing Ext: No edema, no clubbing no cyanosis Neuro: Awake,alert , oriented X 3, moves all ext - Constitutional Vitals: Temp Pulse Resp BP Pulse Ox 97.6 F 84 16 96/46 95 11/19/19 14:45 11/19/19 16:57 11/19/19 14:45 11/19/19 16:57 11/19/19 16:57 General appearance: Present: no acute distress, obese Results - Labs CBC & Chem 7: 11/17/19 07:22 11/17/19 07:22 Labs: Laboratory Last Values WBC 14.0 K/mm3 (4.5-11.0) H 11/17/19 07:22 RBC 2.71 M/mm3 (3.65-5.03) L 11/17/19 07:22 Hgb 7.4 gm/dl (11.8-15.2) L 11/17/19 07:22 Hct 22.8 % (35.5-45.6) L 11/17/19 07:22 MCV 84 fl (84-94) 11/17/19 07:22 MCH 27 pg (28-32) L 11/17/19 07:22 MCHC 33 % (32-34) 11/17/19 07:22 RDW 17.2 % (13.2-15.2) H 11/17/19 07:22 Plt Count 326 K/mm3 (140-440) 11/17/19 07:22 Lymph % (Auto) 10.1 % (13.4-35.0) L 11/13/19 04:33 [place] % (Auto) 7.6 % (0.0-7.3) H 11/13/19 04:33 Eos % (Auto) 0.7 % (0.0-4.3) 11/13/19 04:33 Baso % (Auto) 0.5 % (0.0-1.8) 11/13/19 04:33 Lymph # 1.1 K/mm3 (1.2-5.4) L 11/13/19 04:33 [place] # 0.9 K/mm3 (0.0-0.8) H 11/13/19 04:33 Eos # 0.1 K/mm3 (0.0-0.4) 11/13/19 04:33 Baso # 0.1 K/mm3 (0.0-0.1) 11/13/19 04:33 Add Manual Diff Complete 10/16/19 09:20 Total Counted 100 10/16/19 09:20 Seg Neutrophils % 81.1 % (40.0-70.0) H 11/13/19 04:33 Seg Neuts % (Manual) 79.0 % (40.0-70.0) H 10/16/19 09:20 Band Neutrophils % 12.0 % 10/16/19 09:20 Lymphocytes % (Manual) 4.0 % (13.4-35.0) L 10/16/19 09:20 Reactive Lymphs % (Man) 0 % 10/16/19 09:20 Monocytes % (Manual) 2.0 % (0.0-7.3) 10/16/19 09:20 Eosinophils % (Manual) 0 % (0.0-4.3) 10/16/19 09:20 Basophils % (Manual) 0 % (0.0-1.8) 10/16/19 09:20 Metamyelocytes % 2.0 % 10/16/19 09:20 Myelocytes % 1.0 % 10/16/19 09:20 Promyelocytes % 0 % 10/16/19 09:20 Blast Cells % 0 % 10/16/19 09:20 Nucleated RBC % Not Reportable 10/16/19 09:20 Seg Neutrophils # 9.1 K/mm3 (1.8-7.7) H 11/13/19 04:33 Seg Neutrophils # Man 11.5 K/mm3 (1.8-7.7) H 10/16/19 09:20 Band Neutrophils # 1.8 K/mm3 10/16/19 09:20 Lymphocytes # (Manual) 0.6 K/mm3 (1.2-5.4) L 10/16/19 09:20 Abs React Lymphs (Man) 0.0 K/mm3 10/16/19 09:20 Monocytes # (Manual) 0.3 K/mm3 (0.0-0.8) 10/16/19 09:20 Eosinophils # (Manual) 0.0 K/mm3 (0.0-0.4) 10/16/19 09:20 Basophils # (Manual) 0.0 K/mm3 (0.0-0.1) 10/16/19 09:20 Metamyelocytes # 0.3 K/mm3 10/16/19 09:20 Myelocytes # 0.1 K/mm3 10/16/19 09:20 Promyelocytes # 0.0 K/mm3 10/16/19 09:20 Blast Cells # 0.0 K/mm3 10/16/19 09:20 WBC Morphology Not Reportable 10/16/19 09:20 Hypersegmented Neuts Not Reportable 10/16/19 09:20 Hyposegmented Neuts Not Reportable 10/16/19 09:20 Hypogranular Neuts Not Reportable 10/16/19 09:20 Smudge Cells Not Reportable 10/16/19 09:20 Toxic Granulation Not Reportable 10/16/19 09:20 Toxic Vacuolation Not Reportable 10/16/19 09:20 Dohle Bodies Not Reportable 10/16/19 09:20 Pelger-Huet Anomaly Not Reportable 10/16/19 09:20 Andres Rods Not Reportable 10/16/19 09:20 Platelet Estimate Consistent w auto 10/16/19 09:20 Clumped Platelets Not Reportable 10/16/19 09:20 Plt Clumps, EDTA Not Reportable 10/16/19 09:20 Large Platelets Not Reportable 10/16/19 09:20 Giant Platelets Not Reportable 10/16/19 09:20 Platelet Satelliting Not Reportable 10/16/19 09:20 Plt Morphology Comment Not Reportable 10/16/19 09:20 RBC Morphology Not Reportable 10/16/19 09:20 Dimorphic RBCs Not Reportable 10/16/19 09:20 Polychromasia Few 10/16/19 09:20 Hypochromasia Few 10/16/19 09:20 Poikilocytosis Not Reportable 10/16/19 09:20 Anisocytosis Not Reportable 10/16/19 09:20 Microcytosis Not Reportable 10/16/19 09:20 Macrocytosis Not Reportable 10/16/19 09:20 Spherocytes Not Reportable 10/16/19 09:20 Pappenheimer Bodies Not Reportable 10/16/19 09:20 Sickle Cells Not Reportable 10/16/19 09:20 Target Cells Few 10/16/19 09:20 Tear Drop Cells Not Reportable 10/16/19 09:20 Ovalocytes Not Reportable 10/16/19 09:20 Helmet Cells Not Reportable 10/16/19 09:20 V[place]hese-Brandywine Bodies Not Reportable 10/16/19 09:20 [place] Rings Not Reportable 10/16/19 09:20 [place] Cells Not Reportable 10/16/19 09:20 Bite Cells Not Reportable 10/16/19 09:20 Crenated Cell Not Reportable 10/16/19 09:20 Elliptocytes Not Reportable 10/16/19 09:20 Acanthocytes (Spur) Not Reportable 10/16/19 09:20 Rouleaux Not Reportable 10/16/19 09:20 Hemoglobin C Crystals Not Reportable 10/16/19 09:20 Schistocytes Not Reportable 10/16/19 09:20 Malaria parasites Not Reportable 10/16/19 09:20 Toni Bodies Not Reportable 10/16/19 09:20 Hem Pathologist Commnt No 10/16/19 09:20 POC ABG pH 7.422 (7.35-7.45) 11/03/19 04:28 ABG pH 7.390 pH Units (7.350-7.450) 10/23/19 04:47 POC ABG pCO2 45.4 (35-45) H 11/03/19 04:28 ABG pCO2 48.4 mm Hg 10/23/19 04:47 POC ABG pO2 83 (80-105) 11/03/19 04:28 ABG pO2 68.9 mm Hg (80.0-90.0) L 10/23/19 04:47 POC ABG HCO3 29.6 (22-26 mml/L) 11/03/19 04:28 ABG HCO3 28.7 mmol/L (20.0-26.0) H 10/23/19 04:47 POC ABG Total CO2 31 (23-27mmol/L) 11/03/19 04:28 POC ABG O2 Sat 96 11/03/19 04:28 ABG O2 Saturation 96.6 % (95.0-99.0) 10/23/19 04:47 ABG O2 Content 8.8 (0.0-44) 10/23/19 04:47 POC ABG Base Excess 5 ((-2) - (+3)mmol/L) 11/03/19 04:28 ABG Base Excess 3.4 mmol/L (-2.0-3.0) H 10/23/19 04:47 ABG Hemoglobin 6.6 gm/dl (14.0-18.0) L 10/23/19 04:47 ABG Carboxyhemoglobin 2.1 % (0.0-5.0) 10/23/19 04:47 ABG Methemoglobin 0.5 % (0.0-1.5) 10/23/19 04:47 Oxyhemoglobin 94.1 % (95.0-99.0) L 10/23/19 04:47 FiO2 40 % 11/03/19 04:28 Sodium 136 mmol/L (137-145) L 11/17/19 07:22 Potassium 3.7 mmol/L (3.6-5.0) 11/17/19 07:22 Chloride 96.1 mmol/L (98-107) L 11/17/19 07:22 Carbon Dioxide 23 mmol/L (22-30) 11/17/19 07:22 Anion Gap 21 mmol/L 11/17/19 07:22 BUN 7 mg/dL (9-20) L 11/17/19 07:22 Creatinine 0.5 mg/dL (0.8-1.5) L 11/17/19 07:22 Estimated GFR > 60 ml/min 11/17/19 07:22 BUN/Creatinine Ratio 14 % 11/17/19 07:22 Glucose 81 mg/dL (75-100) 11/17/19 07:22 POC Glucose 122 (70-105) H 11/19/19 08:03 Hemoglobin A1c 5.7 % (4-6) 10/06/19 05:36 Lactic Acid 1.10 mmol/L (0.7-2.0) 10/13/19 04:20 Calcium 8.9 mg/dL (8.4-10.2) 11/17/19 07:22 Ionized Calcium 5.2 mg/dL (4.8-5.6) 10/18/19 07:41 Phosphorus 2.70 mg/dL (2.5-4.5) 11/02/19 12:43 Magnesium 2.40 mg/dL (1.7-2.3) H 11/02/19 12:43 Total Bilirubin 1.10 mg/dL (0.1-1.2) 10/26/19 06:15 Direct Bilirubin 0.7 mg/dL (0-0.2) H 10/23/19 10:44 Indirect Bilirubin 0.1 mg/dL 10/23/19 10:44 AST 23 units/L (5-40) 10/26/19 06:15 ALT 13 units/L (7-56) 10/26/19 06:15 Alkaline Phosphatase 148 units/L (35-129) H 10/26/19 06:15 Ammonia 49.0 umol/L (25-60) 10/13/19 04:20 Troponin T < 0.010 ng/mL (0.00-0.029) 10/09/19 17:23 C-Reactive Protein 30.60 mg/dL (0.00-1.30) H 10/15/19 04:32 Serum Total Protein 5.2 g/dL (6.1-8.1) L 10/11/19 09:00 Total Protein 5.9 g/dL (6.3-8.2) L 10/26/19 06:15 Albumin 2.4 g/dL (3.9-5) L 10/26/19 06:15 Albumin/Globulin Ratio 0.7 % 10/26/19 06:15 Prealbumin 0.030 g/L (0.200-0.400) L 10/15/19 04:32 [id number] See scanned result 10/11/19 Unknown [id number] See scanned result 10/11/19 Unknown Beta Globulins See scanned result 10/11/19 Unknown Gamma Globulins See scanned result 10/11/19 Unknown Abnorm Protein Band 1 see below 10/11/19 09:00 PEP Interpretation See scanned result 10/11/19 Unknown Triglycerides 185 mg/dL (2-149) H 10/26/19 06:15 Urine Color Yellow (Yellow) 10/26/19 Unknown Urine Turbidity Clear (Clear) 10/26/19 Unknown Urine pH 9.0 (5.0-7.0) H 10/26/19 Unknown Ur Specific [place] 1.011 (1.003-1.030) 10/26/19 Unknown Urine Protein 30 mg/dl mg/dL (Negative) 10/26/19 Unknown Urine Glucose (UA) Neg mg/dL (Negative) 10/26/19 Unknown Urine Ketones Neg mg/dL (Negative) 10/26/19 Unknown Urine Blood Neg (Negative) 10/26/19 Unknown Urine Nitrite Neg (Negative) 10/26/19 Unknown Urine Bilirubin Neg (Negative) 10/26/19 Unknown Urine Urobilinogen < 2.0 mg/dL (<2.0) 10/26/19 Unknown Ur Leukocyte Esterase Neg (Negative) 10/26/19 Unknown Urine WBC (Auto) 1.0 /HPF (0.0-6.0) 10/26/19 Unknown Urine RBC (Auto) 1.0 /HPF (0.0-6.0) 10/26/19 Unknown Urine Bacteria (Auto) 1+ /HPF (Negative) 10/11/19 06:23 Urine Mucus Few /HPF 10/26/19 Unknown Urine Eosinophils None seen (None Seen) 10/11/19 06:23 Ur Random Creatinine See scanned result 10/11/19 Unknown U Random Total Protein See scanned result 10/11/19 Unknown Urine Creatinine 116.8 mg/dL (0.1-20.0) H 10/11/19 06:23 Urine Creatinine 118.2 mg/dL (0.1-20.0) H 10/11/19 06:23 Protein/Creatinin Ratio See scanned result 10/11/19 Unknown Urine Sodium 14 mmol/L 10/11/19 06:23 Urine Total Protein 104 mg/dL (5-11.8) H 10/11/19 06:23 Urine Total Protein 105 mg/dL (5-11.8) H 10/11/19 06:23 U Abnormal Prot Band 1 See scanned result 10/11/19 Unknown U Abnormal Prot Band 2 See scanned result 10/11/19 Unknown U Abnormal Prot Band 3 See scanned result 10/11/19 Unknown Vancomycin Trough 5.7 ug/mL (5.0-20.0) 11/05/19 09:00 Random Vancomycin 9.6 ug/mL (0-40.0) 11/03/19 03:42 Digoxin 0.7 ng/mL (0.9-2.0) L 10/19/19 04:21 Blood Type A POSITIVE 10/23/19 11:50 Antibody Screen Negative 10/23/19 11:50 Crossmatch See Detail 10/23/19 11:50 Active Medications - Current Medications Current Medications: Generic Name Dose Route Start Last Admin Trade Name Freq PRN Reason Stop Dose Admin Acetaminophen 650 mg 10/25/19 13:00 11/18/19 15:28 Tylenol FEEDTUBE 650 mg Q4H PRN Administration Fever >100.5 Acetaminophen/Hydrocodone Bitart 7.5 mg 11/18/19 19:00 11/19/19 13:05 Hydrocodone/Apap 7.5-325 PO 7.5 mg Q4H PRN Administration Pain, Moderate (4-6) Albuterol/Ipratropium 1 ampul 10/06/19 02:00 11/19/19 16:52 Duoneb *Not For Prn Use* IH Not Given Q6HRT [facility] Amiodarone HCl 200 mg 10/23/19 13:00 11/19/19 10:36 Cordarone PO 200 mg QDAY VERÓNICA Administration Lipase/Protease/Amylase 1 each 10/20/19 10:37 Pancreazanamika Moreno 10,500 Unit FEEDTUBE PRN PRN For Clogged Feeding Tube Arformoterol Tartrate 15 mcg 10/06/19 08:30 11/19/19 10:34 Brovana Nebu IH 15 mcg Q12HRT VERÓNICA Administration Budesonide 0.5 mg 10/07/19 12:20 11/19/19 10:34 Pulmicort IH 0.5 mg Q12HRT VERÓNICA Administration Citalopram Hydrobromide 20 mg 10/27/19 12:00 11/19/19 09:17 Celexa PO 20 mg DAILY VERÓNICA Administration Diphenhydramine HCl 25 mg 11/17/19 20:15 11/17/19 20:58 Benadryl PO 25 mg Q6H PRN Administration Itching Enoxaparin Sodium 40 mg 11/05/19 22:00 11/18/19 22:04 Enoxaparin SUB-Q 40 mg QDAY@2200 VERÓNICA Administration Haloperidol Lactate 5 mg 10/25/19 18:22 11/12/19 03:33 Haldol IV 5 mg Q6H PRN Administration Agitation Hydralazine HCl 10 mg 10/28/19 14:09 11/02/19 15:34 Apresoline IV 10 mg Q4HR PRN Administration Hypertension Hydromorphone HCl 2 mg 10/25/19 12:35 11/19/19 10:41 Dilaudid IV 2 mg Q4H PRN Administration Pain , Severe (7-10) Insulin Human Lispro 0 unit 10/14/19 12:00 11/19/19 13:08 Humalog SUB-Q Not Given Q6HR [facility] Protocol Lisinopril 20 mg 10/30/19 10:00 11/19/19 09:17 Zestril PO 20 mg QDAY [facility] Administration Metoprolol Tartrate 2.5 mg 10/15/19 15:34 11/01/19 18:00 Metoprolol IV 2.5 mg Q4HR PRN Administration HR >130 Metoprolol Tartrate 50 mg 10/25/19 14:00 11/19/19 14:44 Metoprolol PO Not Given Q8HR [facility] Multi-Ingred Cream/Lotion/Oil/Oint 1 applic 10/14/19 02:19 Artificial Tears Ophth Oint OU Q4HR PRN Dry Eye(s) Pantoprazole Sodium 40 mg 11/20/19 10:00 Protonix PO DAILY VERÓNICA Simple Syrup 15 ml 10/20/19 10:37 Simple Syrup FEEDTUBE PRN PRN Hypoglycemia Simple Syrup 30 ml 10/20/19 10:37 Simple Syrup FEEDTUBE PRN PRN Hypoglycemia Sodium Bicarbonate 325 mg 10/20/19 10:37 11/14/19 05:59 Sodium Bicarbonate FEEDTUBE 325 mg PRN PRN Administration For Clogged Feeding Tube Sodium Chloride 10 ml 11/07/19 19:32 11/18/19 22:05 Sodium Chloride Flush Syringe 10 Ml IV 10 ml PRN PRN Administration LINE FLUSH Zolpidem Tartrate 5 mg 11/10/19 21:00 11/11/19 03:30 Ambien FEEDTUBE 5 mg QHS PRN Administration Sleep Nutrition/Malnutrition Assess - Dietary Evaluation Nutrition/Malnutrition Findings: Nutrition Notes Start: 10/08/19 11:36 Freq: Status: Active Protocol: Document 11/19/19 15:12 LM (Rec: 11/19/19 15:18 LM [email or web address]) Nutrition Notes Initial or Follow up Reassessment Current Diagnosis Acute Kidney Injury,COPD, Hypertension Other Pertinent Diagnosis intra-abdominal infection, disruption of bowel anastomosis, LE edema Current Diet Regular Labs/Tests Reviewed Pertinent Medications Reviewed Height 6 ft Weight 145 kg [place] Body Weight (kg) 80.90 BMI 43.3 Weight Status Morbidly Obese Subjective/Other Information Pt stated he does not like the hospital food. Pt's brought pt de dios, eggs w/ cheese this AM, which pt ate 100% of. Pt does care for Ensure due to not liking the texture. Percent of energy/protein needs met: unable to determine Burn Absent Trauma Absent GI Symptoms None Current % PO Good (75-100%) Minimum of two criteria No Fluid Accumulation Mild (non-severe) #2 Nutrition Diagnosis Inadequate oral intake Diagnosis Progress(for reassessment Resolved documentation) #1 Nutrition Diagnosis Increased nutrient needs ( specify in comment below) Diagnosis Progress(for reassessment Continues documentation) Is patient on ventilator? No Is Patient Ambulatory and/or Out of Bed No REE-([place]-St. Jeor-confined to bed) 2785.236 Kcal/Kg value to use for calculation 14 Approximate Energy Requirements Using 2030 kcal/Kg Calculation Used for Recommendations Kcal/kg Additional Notes Protein: 136-169g (1.2-1.5g/kg ) AdjBW 113kg Fluid 1 ml/kcal or per MD Nutrition Intervention Change Diet Order: Continue regular Add Supplement/Snack (indicate name/kcal D/C /protein ) Goal #1 Meet at least 80% of energy and protein needs via PO intakes Anticipated Discharge Needs: Regular diet Follow-Up By: 11/22/19 Additional Comments F/U for PO intakes
[2019-11-19] MEDS: ENOXAPARIN 40 MG/0.4 ML INJ SUB-Q SCH (22:27)
[2019-11-20] MEDS: IPRATROPIUM/ALBUTEROL SULFATE 3 ML AMPUL.NEB IH SCH ×4 (02:58→21:37)
[2019-11-20] MEDS: INSULIN LISPRO 100 UNIT/ML SUB-Q SCH ×4 (03:12→17:49)
[2019-11-20] MEDS: ACETAMINOPHEN 325 MG/10.15 ML ORAL LIQD UNIT DOSE FEEDTUBE PRN (03:52)
[2019-11-20] MEDS: METOPROLOL TARTRATE 50 MG TAB PO SCH ×3 (07:12→22:00)
[2019-11-20] MEDS: BUDESONIDE 0.5 MG/2 ML NEBU IH SCH ×2 (08:30→21:37)
[2019-11-20] MEDS: ARFORMOTEROL 15 MCG/2 ML NEBU IH SCH ×2 (08:30→21:37)
--- NOTE | 2019-11-20 08:54 | Progress Note ---
Assessment and Plan - Patient Problems (1) Dehiscence of closure of fascia, superficial or muscular Current Visit: No Status: Acute Qualifiers: Encounter type: initial encounter Qualified Code(s): T81.32XA - Disruption of internal operation (surgical) wound, not elsewhere classified, initial encounter Plan to address problem: Pt stable. s/p ex lap with closure of abdominal wall and wound vac placement (10/05) - POD#46; s/p Re-exploration, washout, transection of colon, Abthera placement - 10/13 - POD#38; s/p abd washout, partial omentectomy, partial colectomy with colostomy - 10/16 POD#35. s/p abd washout, feeding tube placement, AbThera placement - 10/19 - POD#32; Abdominal washout and closure - 10/22 - POD#29 Patient appears stable. Rec: 1) Neuro - self-extubated 11/04. 2) CV - BP normal today 3) Resp - On NC. Small bore CT on left - removed 11/02. 4) GI - Ostomy looks good. Functioning. Sump drains - Right drain was accidentally pulled out (10/30). Left one is still functioning. New small bore catheter placed 10/30 - moderate output after drain was stripped. Has appeared like stool. looking thinner and more yellow today. Plan to connect both to wall suction - continuous. Output slowly trending down. Appears dry today. The new tubing looks fairly clean. If it remains that way today, will plan to remove sump drain tomorrow. Midline drain - seems to be working well. may eventually become main drain and we can remove the two left sided drains if their output is minimal. Wound Vac - wound looked good on last check. continue wound vac. Ostomy - functioning now. Bag full of stool and air. Gastric Port - May be used as needed for feeds or meds 5) - BUN/Cr stable. 6) ID - Abx per ID. Enterococcus on cultures. If patient has worsening labs/vitals, then rescan and place additional drains as appropriate. Discussed Abx plan with Dr. Lorenzo. I am ok with trial off Abx, 7) Nutrition - Tube feeds on hold due to clogged feeding port. As patient is tolerating regular diet, would continue to hold TFs and check weekly prealbumin to verify that he is getting enough calories. Passed Speech Eval. 8) DVT prophylaxis - SCDs. Lovenox 9) Family -no family at bedside. Spoke to on the phone. 10) PT - will need rehab. 11) Dispo - Ok for transfer to rehab from my perspective. Await Rehab decision on acceptance. Note: Spoke with [place] surgeon on 11/01/19 about possible transfer. They reviewed the notes that were sent and we discussed the case. They felt that they had nothing else to offer. They agreed with our management. Also agreed that another exploration should not be done. If needed, additional drains can be placed. They did suggest putting a [place] tube in the rectum to decompress that area. (That has been done). This conversation was communicated to the . Please call with questions. Subjective Date of service: 11/20/19 Patient Reports: Positive: no new complaints (wants to go begin rehab), tolerat ing a regular diet Objective Vital Signs - 12hr 11/19/19 11/20/19 11/20/19 23:43 04:00 04:05 Temperature 98.0 F 97.9 F Pulse Rate 95 H 80 Pulse Rate [ Posterior Bilateral Throughout] Respiratory 18 20 Rate Respiratory Rate [Posterior Bilateral Throughout] Blood Pressure 96/43 110/45 O2 Sat by Pulse 95 90 Oximetry 11/20/19 11/20/19 11/20/19 06:00 08:29 08:30 Temperature Pulse Rate 92 H Pulse Rate [ 80 Posterior Bilateral Throughout] Respiratory Rate Respiratory 20 Rate [Posterior Bilateral Throughout] Blood Pressure O2 Sat by Pulse 97 Oximetry - General physical appearance no distress, no pain, obese, other (looks well. good color) - Eyes normal occular movement - Respiratory normal expansion, normal respiratory effort - Abdomen soft, other (almost no drainage in new sump drain tubing. ) - Psychiatric oriented to time, oriented to person, oriented to place, speech is normal, me skye intact - Labs 11/20/19 Unknown 11/20/19 Unknown
[2019-11-20] MEDS: CITALOPRAM 20 MG TAB PO SCH (09:17)
[2019-11-20] MEDS: PANTOPRAZOLE 40 MG TAB PO SCH (09:17)
[2019-11-20] MEDS: AMIODARONE 200 MG TAB PO SCH (09:17)
[2019-11-20] MEDS: LISINOPRIL 20 MG TAB PO SCH (09:22)
[2019-11-20 10:16] LABS: Hematocrit 22.5 % (35.5-45.6); Hemoglobin 7.3 gm/dl (11.8-15.2); Mean Corpuscular HGB Conc 32 % (32-34); Mean Corpuscular Volume 83 fl (84-94); Platelet Count 397 K/mm3 (140-440)
[2019-11-20 10:35] LABS: BUN/Creatinine Ratio 20; Blood Urea Nitrogen 12 mg/dL (9-20); Calcium 8.9 mg/dL (8.4-10.2); Hemolysis Index 2
[2019-11-20] MEDS: HYDROcodone/APAP 7.5-325MG-15ML ORAL LIQD PO PRN ×4 (10:39→23:04)
--- NOTE | 2019-11-20 11:19 | Progress Note ---
Assessment and Plan Assessment and plan: Sepsis, improved. Completed Abx per ID. Enterococcus on cultures. . Dehiscence of closure of fascia s/p ex lap with closure of abdominal wall and wound vac placement (10/05) ; s/p Re-exploration, washout, transection of colon, Abthera placement -10/13; s/p abd washout, partial omentectomy, partial colectomy with colostomy - 10/16. s/p abd washout, feeding tube placement, AbThera placement - 10/19; Abdominal washout and closure - 10/22. Acute Respiratory failure with hypoxia -Extubated 10/25/19 -Re-intubated 10/30 -Patient self extubated morning of 11/04, now on Oxygen by NC -Multifactorial secondary to pneumonia, pneumothorax and COPD Sepsis Completed Merrem, Micafungin ID Physician following Left pneumothorax s/p chest tube placed 10/30 Resolved. Left lower lobe pneumonia -CTA chest showed left lower lobe consolidation with pleural effusion COPD -Stable -cont neb tx GUILLERMO on CKD -due to ATN due to sepsis -Resolved. -No hydronephrosis on CT Severe Metabolic acidosis -Improved Acute Toxic Metabolic Encephalopathy/Delirium Tremens. Resolved. -Continue CIWA protocol due to hx of ETOH abuse, 6packs a day -Head CT scan negative for acute findings Acute blood loss anemia -H/H stable -Continue to monitor H&H and transfuse for hb<7 SVT, Atrial fib/flutter with RVR -treated with adenosine x1 -off amiodarone and cardizem drip. On oral amiodarone -HR currently controlled -Cardiology following Hx of Hypertension -Stable Hyperlipidemia -stable Atypical chest pain -probably secondary to pneumonitis -troponin levels neg Hx of OK/CAD -s/p PCI of the circumflex and second vessel POBA of the distal LAD occlusion. Left ventricle fraction of 45-50%. Morbid obesity with BMI of 43.4 -Lifestyle modification recommended Moderate Protein calorie malnutrition -Nutrition following Tobacco abuse -Cessation recommended Morbid obesity with BMI of 43.4 -Lifestyle modification recommended DVT and GI ppx: Lovenox/PPI Disposition. Plan is to discharge to acute rehab when accepted History Interval history: No new issues overnight. Patient is somewhat confused this morning. Hospitalist Physical - Constitutional Vitals: Temp Pulse Resp BP Pulse Ox 97.9 F 82 20 88/37 97 11/20/19 04:05 11/20/19 09:22 11/20/19 08:30 11/20/19 09:22 11/20/19 08:29 General appearance: Present: no acute distress, obese - EENT Eyes: Present: PERRL, EOM intact ENT: hearing intact, clear oral mucosa, dentition normal - Neck Neck: Present: supple, normal ROM - Respiratory Respiratory effort: normal Respiratory: bilateral: CTA - Cardiovascular Rhythm: regular Heart Sounds: Present: S1 & S2. Absent: gallop, rub - Extremities Extremities: no ischemia, No edema, Full ROM - Abdominal General gastrointestinal: soft, non-tender, non-distended, normal bowel sounds - Integumentary Integumentary: Present: clear, warm, dry - Neurologic Neurologic: CNII-XII intact, moves all extremities Results - Labs CBC & Chem 7: 11/20/19 Unknown 11/20/19 Unknown Labs: Laboratory Last Values WBC 17.8 K/mm3 (4.5-11.0) H 11/20/19 Unknown RBC 2.70 M/mm3 (3.65-5.03) L 11/20/19 Unknown Hgb 7.3 gm/dl (11.8-15.2) L 11/20/19 Unknown Hct 22.5 % (35.5-45.6) L 11/20/19 Unknown MCV 83 fl (84-94) L 11/20/19 Unknown MCH 27 pg (28-32) L 11/20/19 Unknown MCHC 32 % (32-34) 11/20/19 Unknown RDW 17.0 % (13.2-15.2) H 11/20/19 Unknown Plt Count 397 K/mm3 (140-440) 11/20/19 Unknown Lymph % (Auto) 10.1 % (13.4-35.0) L 11/13/19 04:33 [place] % (Auto) 7.6 % (0.0-7.3) H 11/13/19 04:33 Eos % (Auto) 0.7 % (0.0-4.3) 11/13/19 04:33 Baso % (Auto) 0.5 % (0.0-1.8) 11/13/19 04:33 Lymph # 1.1 K/mm3 (1.2-5.4) L 11/13/19 04:33 [place] # 0.9 K/mm3 (0.0-0.8) H 11/13/19 04:33 Eos # 0.1 K/mm3 (0.0-0.4) 11/13/19 04:33 Baso # 0.1 K/mm3 (0.0-0.1) 11/13/19 04:33 Add Manual Diff Complete 10/16/19 09:20 Total Counted 100 10/16/19 09:20 Seg Neutrophils % 81.1 % (40.0-70.0) H 11/13/19 04:33 Seg Neuts % (Manual) 79.0 % (40.0-70.0) H 10/16/19 09:20 Band Neutrophils % 12.0 % 10/16/19 09:20 Lymphocytes % (Manual) 4.0 % (13.4-35.0) L 10/16/19 09:20 Reactive Lymphs % (Man) 0 % 10/16/19 09:20 Monocytes % (Manual) 2.0 % (0.0-7.3) 10/16/19 09:20 Eosinophils % (Manual) 0 % (0.0-4.3) 10/16/19 09:20 Basophils % (Manual) 0 % (0.0-1.8) 10/16/19 09:20 Metamyelocytes % 2.0 % 10/16/19 09:20 Myelocytes % 1.0 % 10/16/19 09:20 Promyelocytes % 0 % 10/16/19 09:20 Blast Cells % 0 % 10/16/19 09:20 Nucleated RBC % Not Reportable 10/16/19 09:20 Seg Neutrophils # 9.1 K/mm3 (1.8-7.7) H 11/13/19 04:33 Seg Neutrophils # Man 11.5 K/mm3 (1.8-7.7) H 10/16/19 09:20 Band Neutrophils # 1.8 K/mm3 10/16/19 09:20 Lymphocytes # (Manual) 0.6 K/mm3 (1.2-5.4) L 10/16/19 09:20 Abs React Lymphs (Man) 0.0 K/mm3 10/16/19 09:20 Monocytes # (Manual) 0.3 K/mm3 (0.0-0.8) 10/16/19 09:20 Eosinophils # (Manual) 0.0 K/mm3 (0.0-0.4) 10/16/19 09:20 Basophils # (Manual) 0.0 K/mm3 (0.0-0.1) 10/16/19 09:20 Metamyelocytes # 0.3 K/mm3 10/16/19 09:20 Myelocytes # 0.1 K/mm3 10/16/19 09:20 Promyelocytes # 0.0 K/mm3 10/16/19 09:20 Blast Cells # 0.0 K/mm3 10/16/19 09:20 WBC Morphology Not Reportable 10/16/19 09:20 Hypersegmented Neuts Not Reportable 10/16/19 09:20 Hyposegmented Neuts Not Reportable 10/16/19 09:20 Hypogranular Neuts Not Reportable 10/16/19 09:20 Smudge Cells Not Reportable 10/16/19 09:20 Toxic Granulation Not Reportable 10/16/19 09:20 Toxic Vacuolation Not Reportable 10/16/19 09:20 Dohle Bodies Not Reportable 10/16/19 09:20 Pelger-Huet Anomaly Not Reportable 10/16/19 09:20 Andrse Rods Not Reportable 10/16/19 09:20 Platelet Estimate Consistent w auto 10/16/19 09:20 Clumped Platelets Not Reportable 10/16/19 09:20 Plt Clumps, EDTA Not Reportable 10/16/19 09:20 Large Platelets Not Reportable 10/16/19 09:20 Giant Platelets Not Reportable 10/16/19 09:20 Platelet Satelliting Not Reportable 10/16/19 09:20 Plt Morphology Comment Not Reportable 10/16/19 09:20 RBC Morphology Not Reportable 10/16/19 09:20 Dimorphic RBCs Not Reportable 10/16/19 09:20 Polychromasia Few 10/16/19 09:20 Hypochromasia Few 10/16/19 09:20 Poikilocytosis Not Reportable 10/16/19 09:20 Anisocytosis Not Reportable 10/16/19 09:20 Microcytosis Not Reportable 10/16/19 09:20 Macrocytosis Not Reportable 10/16/19 09:20 Spherocytes Not Reportable 10/16/19 09:20 Pappenheimer Bodies Not Reportable 10/16/19 09:20 Sickle Cells Not Reportable 10/16/19 09:20 Target Cells Few 10/16/19 09:20 Tear Drop Cells Not Reportable 10/16/19 09:20 Ovalocytes Not Reportable 10/16/19 09:20 Helmet Cells Not Reportable 10/16/19 09:20 [place] Bodies Not Reportable 10/16/19 09:20 [place] Rings Not Reportable 10/16/19 09:20 [place] Cells Not Reportable 10/16/19 09:20 Bite Cells Not Reportable 10/16/19 09:20 Crenated Cell Not Reportable 10/16/19 09:20 Elliptocytes Not Reportable 10/16/19 09:20 Acanthocytes (Spur) Not Reportable 10/16/19 09:20 Rouleaux Not Reportable 10/16/19 09:20 Hemoglobin C Crystals Not Reportable 10/16/19 09:20 Schistocytes Not Reportable 10/16/19 09:20 Malaria parasites Not Reportable 10/16/19 09:20 Toni Bodies Not Reportable 10/16/19 09:20 Hem Pathologist Commnt No 10/16/19 09:20 POC ABG pH 7.422 (7.35-7.45) 11/03/19 04:28 ABG pH 7.390 pH Units (7.350-7.450) 10/23/19 04:47 POC ABG pCO2 45.4 (35-45) H 11/03/19 04:28 ABG pCO2 48.4 mm Hg 10/23/19 04:47 POC ABG pO2 83 (80-105) 11/03/19 04:28 ABG pO2 68.9 mm Hg (80.0-90.0) L 10/23/19 04:47 POC ABG HCO3 29.6 (22-26 mml/L) 11/03/19 04:28 ABG HCO3 28.7 mmol/L (20.0-26.0) H 10/23/19 04:47 POC ABG Total CO2 31 (23-27mmol/L) 11/03/19 04:28 POC ABG O2 Sat 96 11/03/19 04:28 ABG O2 Saturation 96.6 % (95.0-99.0) 10/23/19 04:47 ABG O2 Content 8.8 (0.0-44) 10/23/19 04:47 POC ABG Base Excess 5 ((-2) - (+3)mmol/L) 11/03/19 04:28 ABG Base Excess 3.4 mmol/L (-2.0-3.0) H 10/23/19 04:47 ABG Hemoglobin 6.6 gm/dl (14.0-18.0) L 10/23/19 04:47 ABG Carboxyhemoglobin 2.1 % (0.0-5.0) 10/23/19 04:47 ABG Methemoglobin 0.5 % (0.0-1.5) 10/23/19 04:47 Oxyhemoglobin 94.1 % (95.0-99.0) L 10/23/19 04:47 FiO2 40 % 11/03/19 04:28 Sodium 132 mmol/L (137-145) L 11/20/19 Unknown Potassium 3.5 mmol/L (3.6-5.0) L 11/20/19 Unknown Chloride 95.4 mmol/L (98-107) L 11/20/19 Unknown Carbon Dioxide 21 mmol/L (22-30) L 11/20/19 Unknown Anion Gap 19 mmol/L 11/20/19 Unknown BUN 12 mg/dL (9-20) 11/20/19 Unknown Creatinine 0.6 mg/dL (0.8-1.5) L 11/20/19 Unknown Estimated GFR > 60 ml/min 11/20/19 Unknown BUN/Creatinine Ratio 20 % 11/20/19 Unknown Glucose 108 mg/dL (75-100) H 11/20/19 Unknown POC Glucose 99 (70-105) 11/20/19 06:24 Hemoglobin A1c 5.7 % (4-6) 10/06/19 05:36 Lactic Acid 1.10 mmol/L (0.7-2.0) 10/13/19 04:20 Calcium 8.9 mg/dL (8.4-10.2) 11/20/19 Unknown Ionized Calcium 5.2 mg/dL (4.8-5.6) 10/18/19 07:41 Phosphorus 2.70 mg/dL (2.5-4.5) 11/02/19 12:43 Magnesium 2.40 mg/dL (1.7-2.3) H 11/02/19 12:43 Total Bilirubin 1.10 mg/dL (0.1-1.2) 10/26/19 06:15 Direct Bilirubin 0.7 mg/dL (0-0.2) H 10/23/19 10:44 Indirect Bilirubin 0.1 mg/dL 10/23/19 10:44 AST 23 units/L (5-40) 10/26/19 06:15 ALT 13 units/L (7-56) 10/26/19 06:15 Alkaline Phosphatase 148 units/L (35-129) H 10/26/19 06:15 Ammonia 49.0 umol/L (25-60) 10/13/19 04:20 Troponin T < 0.010 ng/mL (0.00-0.029) 10/09/19 17:23 C-Reactive Protein 30.60 mg/dL (0.00-1.30) H 10/15/19 04:32 Serum Total Protein 5.2 g/dL (6.1-8.1) L 10/11/19 09:00 Total Protein 5.9 g/dL (6.3-8.2) L 10/26/19 06:15 Albumin 2.4 g/dL (3.9-5) L 10/26/19 06:15 Albumin/Globulin Ratio 0.7 % 10/26/19 06:15 Prealbumin 0.030 g/L (0.200-0.400) L 10/15/19 04:32 [id number] See scanned result 10/11/19 Unknown [id number] See scanned result 10/11/19 Unknown Beta Globulins See scanned result 10/11/19 Unknown Gamma Globulins See scanned result 10/11/19 Unknown Abnorm Protein Band 1 see below 10/11/19 09:00 PEP Interpretation See scanned result 10/11/19 Unknown Triglycerides 185 mg/dL (2-149) H 10/26/19 06:15 Urine Color Yellow (Yellow) 10/26/19 Unknown Urine Turbidity Clear (Clear) 10/26/19 Unknown Urine pH 9.0 (5.0-7.0) H 10/26/19 Unknown Ur Specific [place] 1.011 (1.003-1.030) 10/26/19 Unknown Urine Protein 30 mg/dl mg/dL (Negative) 10/26/19 Unknown Urine Glucose (UA) Neg mg/dL (Negative) 10/26/19 Unknown Urine Ketones Neg mg/dL (Negative) 10/26/19 Unknown Urine Blood Neg (Negative) 10/26/19 Unknown Urine Nitrite Neg (Negative) 10/26/19 Unknown Urine Bilirubin Neg (Negative) 10/26/19 Unknown Urine Urobilinogen < 2.0 mg/dL (<2.0) 10/26/19 Unknown Ur Leukocyte Esterase Neg (Negative) 10/26/19 Unknown Urine WBC (Auto) 1.0 /HPF (0.0-6.0) 10/26/19 Unknown Urine RBC (Auto) 1.0 /HPF (0.0-6.0) 10/26/19 Unknown Urine Bacteria (Auto) 1+ /HPF (Negative) 10/11/19 06:23 Urine Mucus Few /HPF 10/26/19 Unknown Urine Eosinophils None seen (None Seen) 10/11/19 06:23 Ur Random Creatinine See scanned result 10/11/19 Unknown U Random Total Protein See scanned result 10/11/19 Unknown Urine Creatinine 116.8 mg/dL (0.1-20.0) H 10/11/19 06:23 Urine Creatinine 118.2 mg/dL (0.1-20.0) H 10/11/19 06:23 Protein/Creatinin Ratio See scanned result 10/11/19 Unknown Urine Sodium 14 mmol/L 10/11/19 06:23 Urine Total Protein 104 mg/dL (5-11.8) H 10/11/19 06:23 Urine Total Protein 105 mg/dL (5-11.8) H 10/11/19 06:23 U Abnormal Prot Band 1 See scanned result 10/11/19 Unknown U Abnormal Prot Band 2 See scanned result 10/11/19 Unknown U Abnormal Prot Band 3 See scanned result 10/11/19 Unknown Vancomycin Trough 5.7 ug/mL (5.0-20.0) 11/05/19 09:00 Random Vancomycin 9.6 ug/mL (0-40.0) 11/03/19 03:42 Digoxin 0.7 ng/mL (0.9-2.0) L 10/19/19 04:21 Blood Type A POSITIVE 10/23/19 11:50 Antibody Screen Negative 10/23/19 11:50 Crossmatch See Detail 10/23/19 11:50 Active Medications - Current Medications Current Medications: Generic Name Dose Route Start Last Admin Trade Name Freq PRN Reason Stop Dose Admin Acetaminophen 650 mg 10/25/19 13:00 11/20/19 03:52 Tylenol FEEDTUBE 650 mg Q4H PRN Administration Fever >100.5 Acetaminophen/Hydrocodone Bitart 7.5 mg 11/18/19 19:00 11/20/19 10:39 Hydrocodone/Apap 7.5-325 PO 7.5 mg Q4H PRN Administration Pain, Moderate (4-6) Albuterol/Ipratropium 1 ampul 10/06/19 02:00 11/20/19 08:30 Duoneb *Not For Prn Use* IH Not Given Q6HRT VERÓNICA Amiodarone HCl 200 mg 10/23/19 13:00 11/20/19 09:17 Cordarone PO 200 mg QDAY VERÓNICA Administration Lipase/Protease/Amylase 1 each 10/20/19 10:37 Pancreaze 10,500 Unit FEEDTUBE PRN PRN For Clogged Feeding Tube Arformoterol Tartrate 15 mcg 10/06/19 08:30 11/20/19 08:30 Brovana Nebu IH 15 mcg Q12HRT VERÓNICA Administration Budesonide 0.5 mg 10/07/19 12:20 11/20/19 08:30 Pulmicort IH 0.5 mg Q12HRT VERÓNICA Administration Citalopram Hydrobromide 20 mg 10/27/19 12:00 11/20/19 09:17 Celexa PO 20 mg DAILY VERÓNICA Administration Diphenhydramine HCl 25 mg 11/17/19 20:15 11/17/19 20:58 Benadryl PO 25 mg Q6H PRN Administration Itching Enoxaparin Sodium 40 mg 11/05/19 22:00 11/19/19 22:27 Enoxaparin SUB-Q 40 mg QDAY@2200 VERÓNICA Administration Haloperidol Lactate 5 mg 10/25/19 18:22 11/12/19 03:33 Haldol IV 5 mg Q6H PRN Administration Agitation Hydralazine HCl 10 mg 10/28/19 14:09 11/02/19 15:34 Apresoline IV 10 mg Q4HR PRN Administration Hypertension Hydromorphone HCl 2 mg 10/25/19 12:35 11/19/19 10:41 Dilaudid IV 2 mg Q4H PRN Administration Pain , Severe (7-10) Insulin Human Lispro 0 unit 10/14/19 12:00 11/20/19 07:12 Humalog SUB-Q Not Given Q6HR [facility] Protocol Lisinopril 20 mg 10/30/19 10:00 11/20/19 09:22 Zestril PO Not Given QDAY [facility] Metoprolol Tartrate 2.5 mg 10/15/19 15:34 11/01/19 18:00 Metoprolol IV 2.5 mg Q4HR PRN Administration HR >130 Metoprolol Tartrate 50 mg 10/25/19 14:00 11/20/19 07:12 Metoprolol PO 50 mg Q8HR VERÓNICA Administration Multi-Ingred Cream/Lotion/Oil/Oint 1 applic 10/14/19 02:19 Artificial Tears Ophth Oint OU Q4HR PRN Dry Eye(s) Pantoprazole Sodium 40 mg 11/20/19 10:00 11/20/19 09:17 Protonix PO 40 mg DAILY VERÓNICA Administration Simple Syrup 15 ml 10/20/19 10:37 Simple Syrup FEEDTUBE PRN PRN Hypoglycemia Simple Syrup 30 ml 10/20/19 10:37 Simple Syrup FEEDTUBE PRN PRN Hypoglycemia Sodium Bicarbonate 325 mg 10/20/19 10:37 11/14/19 05:59 Sodium Bicarbonate FEEDTUBE 325 mg PRN PRN Administration For Clogged Feeding Tube Sodium Chloride 10 ml 11/07/19 19:32 11/18/19 22:05 Sodium Chloride Flush Syringe 10 Ml IV 10 ml PRN PRN Administration LINE FLUSH Zolpidem Tartrate 5 mg 11/10/19 21:00 11/11/19 03:30 Ambien FEEDTUBE 5 mg QHS PRN Administration Sleep Nutrition/Malnutrition Assess - Dietary Evaluation Nutrition/Malnutrition Findings: Nutrition Notes Start: 10/08/19 11:36 Freq: Status: Active Protocol: Document 11/19/19 15:12 LM (Rec: 11/19/19 15:18 LM [id number]) Nutrition Notes Initial or Follow up Reassessment Current Diagnosis Acute Kidney Injury,COPD, Hypertension Other Pertinent Diagnosis intra-abdominal infection, disruption of bowel anastomosis, LE edema Current Diet Regular Labs/Tests Reviewed Pertinent Medications Reviewed Height 6 ft Weight 145 kg [place] Body Weight (kg) 80.90 BMI 43.3 Weight Status Morbidly Obese Subjective/Other Information Pt stated he does not like the hospital food. Pt's brought pt de dios, eggs w/ cheese this AM, which pt ate 100% of. Pt does care for Ensure due to not liking the texture. Percent of energy/protein needs met: unable to determine Burn Absent Trauma Absent GI Symptoms None Current % PO Good (75-100%) Minimum of two criteria No Fluid Accumulation Mild (non-severe) #2 Nutrition Diagnosis Inadequate oral intake Diagnosis Progress(for reassessment Resolved documentation) #1 Nutrition Diagnosis Increased nutrient needs ( specify in comment below) Diagnosis Progress(for reassessment Continues documentation) Is patient on ventilator? No Is Patient Ambulatory and/or Out of Bed No REE-([facility]-confined to bed) 2785.236 Kcal/Kg value to use for calculation 14 Approximate Energy Requirements Using 2030 kcal/Kg Calculation Used for Recommendations Kcal/kg Additional Notes Protein: 136-169g (1.2-1.5g/kg ) AdjBW 113kg Fluid 1 ml/kcal or per MD Nutrition Intervention Change Diet Order: Continue regular Add Supplement/Snack (indicate name/kcal D/C /protein ) Goal #1 Meet at least 80% of energy and protein needs via PO intakes Anticipated Discharge Needs: Regular diet Follow-Up By: 11/22/19 Additional Comments F/U for PO intakes
[2019-11-20] MEDS: ENOXAPARIN 40 MG/0.4 ML INJ SUB-Q SCH (21:10)
[2019-11-21] MEDS: IPRATROPIUM/ALBUTEROL SULFATE 3 ML AMPUL.NEB IH SCH ×4 (01:25→21:30)
[2019-11-21] MEDS: HYDROcodone/APAP 7.5-325MG-15ML ORAL LIQD PO PRN ×3 (03:04→23:55)
[2019-11-21] MEDS: INSULIN LISPRO 100 UNIT/ML SUB-Q SCH ×4 (03:04→19:07)
[2019-11-21] MEDS: METOPROLOL TARTRATE 50 MG TAB PO SCH ×4 (05:50→23:56)
[2019-11-21] MEDS: ARFORMOTEROL 15 MCG/2 ML NEBU IH SCH ×2 (07:53→21:30)
[2019-11-21] MEDS: BUDESONIDE 0.5 MG/2 ML NEBU IH SCH ×2 (07:53→21:30)
[2019-11-21 07:59] LABS: Basophils # (Auto) 0.1 K/mm3 (0.0-0.1); Basophils % (Auto) 0.5 % (0.0-1.8); Eosinophils # (Auto) 0.2 K/mm3 (0.0-0.4); Eosinophils % (Auto) 1.3 % (0.0-4.3); Hematocrit 21.5 % (35.5-45.6); Lymphocytes # (Auto) 1.3 K/mm3 (1.2-5.4); Mean Corpuscular HGB Conc 33 % (32-34); Mean Corpuscular Volume 82 fl (84-94); Monocytes # (Auto) 1.2 K/mm3 (0.0-0.8); Monocytes % (Auto) 7.7 % (0.0-7.3); Platelet Count 415 K/mm3 (140-440); Red Blood Count 2.61 M/mm3 (3.65-5.03)
[2019-11-21 08:23] LABS: BUN/Creatinine Ratio 20; Blood Urea Nitrogen 10 mg/dL (9-20); Calcium 9.2 mg/dL (8.4-10.2); Hemolysis Index 2
[2019-11-21] MEDS: LISINOPRIL 20 MG TAB PO SCH (10:00)
[2019-11-21] MEDS: CITALOPRAM 20 MG TAB PO SCH (10:31)
[2019-11-21] MEDS: PANTOPRAZOLE 40 MG TAB PO SCH (10:31)
[2019-11-21] MEDS: AMIODARONE 200 MG TAB PO SCH (10:31)
[2019-11-21] MEDS ORDERED: SODIUM CHLORIDE 0.9% 500 ML 500 ML IV ONE (11:59)
--- NOTE | 2019-11-21 12:03 | Progress Note ---
Assessment and Plan Assessment and plan: Acute blood loss anemia -H/H has slowly trended down to 7.0 today. -Continue to monitor H&H and transfuse 1 unit PRBCs. Sepsis, improved. Completed Abx per ID. Dehiscence of closure of fascia s/p ex lap with closure of abdominal wall and wound vac placement 10/05 ; s/p Re-exploration, washout, transection of colon, Abthera placement -10/13; s/p abd washout, partial omentectomy, partial colectomy with colostomy - 10/16. s/p abd washout, feeding tube placement, AbThera placement - 10/19; Abdominal washout and closure - 10/22. Acute Respiratory failure with hypoxia -Extubated 10/25/19 -Re-intubated 10/30 -Patient self extubated morning of 11/04, now on Oxygen by NC -Multifactorial secondary to pneumonia, pneumothorax and COPD Left pneumothorax s/p chest tube placed 10/30 Resolved. Left lower lobe pneumonia -CTA chest showed left lower lobe consolidation with pleural effusion COPD -Stable -cont neb tx GUILLERMO on CKD -due to ATN due to sepsis -Resolved. -No hydronephrosis on CT Acute Toxic Metabolic Encephalopathy/Delirium Tremens. Resolved. -Continue CIWA protocol due to hx of ETOH abuse, 6packs a day -Head CT scan negative for acute findings SVT, Atrial fib/flutter with RVR -treated with adenosine x1 -off amiodarone and cardizem drip. On oral amiodarone -HR currently controlled -Cardiology following Hx of Hypertension -Stable Hyperlipidemia -stable Atypical chest pain -probably secondary to pneumonitis -troponin levels neg Hx of WI/CAD -s/p PCI of the circumflex and second vessel POBA of the distal LAD occlusion. Left ventricle fraction of 45-50%. Moderate Protein calorie malnutrition -Nutrition following Tobacco abuse -Cessation recommended Morbid obesity with BMI of 43.4 -Lifestyle modification recommended DVT and GI ppx: Lovenox/PPI Disposition. Plan is to discharge to acute rehab when accepted History Interval history: No new issues overnight. Hospitalist Physical - Constitutional Vitals: Temp Pulse Resp BP Pulse Ox 97.8 F 99 H 20 111/44 93 11/21/19 03:55 11/21/19 08:48 11/21/19 07:56 11/21/19 08:48 11/21/19 08:48 General appearance: Present: no acute distress, obese - EENT Eyes: Present: PERRL, EOM intact ENT: hearing intact, clear oral mucosa, dentition normal - Neck Neck: Present: supple, normal ROM - Respiratory Respiratory effort: normal Respiratory: bilateral: CTA - Cardiovascular Rhythm: regular Heart Sounds: Present: S1 & S2. Absent: gallop, rub - Extremities Extremities: no ischemia, No edema, Full ROM - Abdominal General gastrointestinal: soft, non-tender, non-distended, normal bowel sounds - Integumentary Integumentary: Present: clear, warm, dry - Neurologic Neurologic: CNII-XII intact, moves all extremities Results - Labs CBC & Chem 7: 11/21/19 07:40 11/21/19 07:40 Labs: Laboratory Last Values WBC 15.1 K/mm3 (4.5-11.0) H 11/21/19 07:40 RBC 2.61 M/mm3 (3.65-5.03) L 11/21/19 07:40 Hgb 7.0 gm/dl (11.8-15.2) L 11/21/19 07:40 Hct 21.5 % (35.5-45.6) L 11/21/19 07:40 MCV 82 fl (84-94) L 11/21/19 07:40 MCH 27 pg (28-32) L 11/21/19 07:40 MCHC 33 % (32-34) 11/21/19 07:40 RDW 17.0 % (13.2-15.2) H 11/21/19 07:40 Plt Count 415 K/mm3 (140-440) 11/21/19 07:40 Lymph % (Auto) 9.0 % (13.4-35.0) L 11/21/19 07:40 Irwin % (Auto) 7.7 % (0.0-7.3) H 11/21/19 07:40 Eos % (Auto) 1.3 % (0.0-4.3) 11/21/19 07:40 Baso % (Auto) 0.5 % (0.0-1.8) 11/21/19 07:40 Lymph # 1.3 K/mm3 (1.2-5.4) 01/08/20 07:40 Irwin # 1.2 K/mm3 (0.0-0.8) H 11/21/19 07:40 Eos # 0.2 K/mm3 (0.0-0.4) 11/21/19 07:40 Baso # 0.1 K/mm3 (0.0-0.1) 11/21/19 07:40 Add Manual Diff Complete 10/16/19 09:20 Total Counted 100 10/16/19 09:20 Seg Neutrophils % 81.5 % (40.0-70.0) H 11/21/19 07:40 Seg Neuts % (Manual) 79.0 % (40.0-70.0) H 10/16/19 09:20 Band Neutrophils % 12.0 % 10/16/19 09:20 Lymphocytes % (Manual) 4.0 % (13.4-35.0) L 10/16/19 09:20 Reactive Lymphs % (Man) 0 % 10/16/19 09:20 Monocytes % (Manual) 2.0 % (0.0-7.3) 10/16/19 09:20 Eosinophils % (Manual) 0 % (0.0-4.3) 10/16/19 09:20 Basophils % (Manual) 0 % (0.0-1.8) 10/16/19 09:20 Metamyelocytes % 2.0 % 10/16/19 09:20 Myelocytes % 1.0 % 10/16/19 09:20 Promyelocytes % 0 % 10/16/19 09:20 Blast Cells % 0 % 10/16/19 09:20 Nucleated RBC % Not Reportable 10/16/19 09:20 Seg Neutrophils # 12.3 K/mm3 (1.8-7.7) H 11/21/19 07:40 Seg Neutrophils # Man 11.5 K/mm3 (1.8-7.7) H 10/16/19 09:20 Band Neutrophils # 1.8 K/mm3 10/16/19 09:20 Lymphocytes # (Manual) 0.6 K/mm3 (1.2-5.4) L 10/16/19 09:20 Abs React Lymphs (Man) 0.0 K/mm3 10/16/19 09:20 Monocytes # (Manual) 0.3 K/mm3 (0.0-0.8) 10/16/19 09:20 Eosinophils # (Manual) 0.0 K/mm3 (0.0-0.4) 10/16/19 09:20 Basophils # (Manual) 0.0 K/mm3 (0.0-0.1) 10/16/19 09:20 Metamyelocytes # 0.3 K/mm3 10/16/19 09:20 Myelocytes # 0.1 K/mm3 10/16/19 09:20 Promyelocytes # 0.0 K/mm3 10/16/19 09:20 Blast Cells # 0.0 K/mm3 10/16/19 09:20 WBC Morphology Not Reportable 10/16/19 09:20 Hypersegmented Neuts Not Reportable 10/16/19 09:20 Hyposegmented Neuts Not Reportable 10/16/19 09:20 Hypogranular Neuts Not Reportable 10/16/19 09:20 Smudge Cells Not Reportable 10/16/19 09:20 Toxic Granulation Not Reportable 10/16/19 09:20 Toxic Vacuolation Not Reportable 10/16/19 09:20 Dohle Bodies Not Reportable 10/16/19 09:20 Pelger-Huet Anomaly Not Reportable 10/16/19 09:20 Andres Rods Not Reportable 10/16/19 09:20 Platelet Estimate Consistent w auto 10/16/19 09:20 Clumped Platelets Not Reportable 10/16/19 09:20 Plt Clumps, EDTA Not Reportable 10/16/19 09:20 Large Platelets Not Reportable 10/16/19 09:20 Giant Platelets Not Reportable 10/16/19 09:20 Platelet Satelliting Not Reportable 10/16/19 09:20 Plt Morphology Comment Not Reportable 10/16/19 09:20 RBC Morphology Not Reportable 10/16/19 09:20 Dimorphic RBCs Not Reportable 10/16/19 09:20 Polychromasia Few 10/16/19 09:20 Hypochromasia Few 10/16/19 09:20 Poikilocytosis Not Reportable 10/16/19 09:20 Anisocytosis Not Reportable 10/16/19 09:20 Microcytosis Not Reportable 10/16/19 09:20 Macrocytosis Not Reportable 10/16/19 09:20 Spherocytes Not Reportable 10/16/19 09:20 Pappenheimer Bodies Not Reportable 10/16/19 09:20 Sickle Cells Not Reportable 10/16/19 09:20 Target Cells Few 10/16/19 09:20 Tear Drop Cells Not Reportable 10/16/19 09:20 Ovalocytes Not Reportable 10/16/19 09:20 Helmet Cells Not Reportable 10/16/19 09:20 Varghese-[place] Bodies Not Reportable 10/16/19 09:20 Briggs Rings Not Reportable 10/16/19 09:20 Orion Cells Not Reportable 10/16/19 09:20 Bite Cells Not Reportable 10/16/19 09:20 Crenated Cell Not Reportable 10/16/19 09:20 Elliptocytes Not Reportable 10/16/19 09:20 Acanthocytes (Spur) Not Reportable 10/16/19 09:20 Rouleaux Not Reportable 10/16/19 09:20 Hemoglobin C Crystals Not Reportable 10/16/19 09:20 Schistocytes Not Reportable 10/16/19 09:20 Malaria parasites Not Reportable 10/16/19 09:20 Toni Bodies Not Reportable 10/16/19 09:20 Hem Pathologist Commnt No 10/16/19 09:20 POC ABG pH 7.422 (7.35-7.45) 11/03/19 04:28 ABG pH 7.390 pH Units (7.350-7.450) 10/23/19 04:47 POC ABG pCO2 45.4 (35-45) H 11/03/19 04:28 ABG pCO2 48.4 mm Hg 10/23/19 04:47 POC ABG pO2 83 (80-105) 11/03/19 04:28 ABG pO2 68.9 mm Hg (80.0-90.0) L 10/23/19 04:47 POC ABG HCO3 29.6 (22-26 mml/L) 11/03/19 04:28 ABG HCO3 28.7 mmol/L (20.0-26.0) H 10/23/19 04:47 POC ABG Total CO2 31 (23-27mmol/L) 11/03/19 04:28 POC ABG O2 Sat 96 11/03/19 04:28 ABG O2 Saturation 96.6 % (95.0-99.0) 10/23/19 04:47 ABG O2 Content 8.8 (0.0-44) 10/23/19 04:47 POC ABG Base Excess 5 ((-2) - (+3)mmol/L) 11/03/19 04:28 ABG Base Excess 3.4 mmol/L (-2.0-3.0) H 10/23/19 04:47 ABG Hemoglobin 6.6 gm/dl (14.0-18.0) L 10/23/19 04:47 ABG Carboxyhemoglobin 2.1 % (0.0-5.0) 10/23/19 04:47 ABG Methemoglobin 0.5 % (0.0-1.5) 10/23/19 04:47 Oxyhemoglobin 94.1 % (95.0-99.0) L 10/23/19 04:47 FiO2 40 % 11/03/19 04:28 Sodium 138 mmol/L (137-145) 11/21/19 07:40 Potassium 3.6 mmol/L (3.6-5.0) 11/21/19 07:40 Chloride 99.7 mmol/L (98-107) 11/21/19 07:40 Carbon Dioxide 22 mmol/L (22-30) 11/21/19 07:40 Anion Gap 20 mmol/L 11/21/19 07:40 BUN 10 mg/dL (9-20) 11/21/19 07:40 Creatinine 0.5 mg/dL (0.8-1.5) L 11/21/19 07:40 Estimated GFR > 60 ml/min 11/21/19 07:40 BUN/Creatinine Ratio 20 % 11/21/19 07:40 Glucose 94 mg/dL (75-100) 11/21/19 07:40 POC Glucose 101 (70-105) 11/21/19 06:21 Hemoglobin A1c 5.7 % (4-6) 10/06/19 05:36 Lactic Acid 1.10 mmol/L (0.7-2.0) 10/13/19 04:20 Calcium 9.2 mg/dL (8.4-10.2) 11/21/19 07:40 Ionized Calcium 5.2 mg/dL (4.8-5.6) 10/18/19 07:41 Phosphorus 2.70 mg/dL (2.5-4.5) 11/02/19 12:43 Magnesium 2.40 mg/dL (1.7-2.3) H 11/02/19 12:43 Total Bilirubin 1.10 mg/dL (0.1-1.2) 10/26/19 06:15 Direct Bilirubin 0.7 mg/dL (0-0.2) H 10/23/19 10:44 Indirect Bilirubin 0.1 mg/dL 10/23/19 10:44 AST 23 units/L (5-40) 10/26/19 06:15 ALT 13 units/L (7-56) 10/26/19 06:15 Alkaline Phosphatase 148 units/L (35-129) H 10/26/19 06:15 Ammonia 49.0 umol/L (25-60) 10/13/19 04:20 Troponin T < 0.010 ng/mL (0.00-0.029) 10/09/19 17:23 C-Reactive Protein 30.60 mg/dL (0.00-1.30) H 10/15/19 04:32 Serum Total Protein 5.2 g/dL (6.1-8.1) L 10/11/19 09:00 Total Protein 5.9 g/dL (6.3-8.2) L 10/26/19 06:15 Albumin 2.4 g/dL (3.9-5) L 10/26/19 06:15 Albumin/Globulin Ratio 0.7 % 10/26/19 06:15 Prealbumin 0.030 g/L (0.200-0.400) L 10/15/19 04:32 [id number] See scanned result 10/11/19 Unknown [id number] See scanned result 10/11/19 Unknown Beta Globulins See scanned result 10/11/19 Unknown Gamma Globulins See scanned result 10/11/19 Unknown Abnorm Protein Band 1 see below 10/11/19 09:00 PEP Interpretation See scanned result 10/11/19 Unknown Triglycerides 185 mg/dL (2-149) H 10/26/19 06:15 Urine Color Yellow (Yellow) 10/26/19 Unknown Urine Turbidity Clear (Clear) 10/26/19 Unknown Urine pH 9.0 (5.0-7.0) H 10/26/19 Unknown Ur Specific Rector 1.011 (1.003-1.030) 10/26/19 Unknown Urine Protein 30 mg/dl mg/dL (Negative) 10/26/19 Unknown Urine Glucose (UA) Neg mg/dL (Negative) 10/26/19 Unknown Urine Ketones Neg mg/dL (Negative) 10/26/19 Unknown Urine Blood Neg (Negative) 10/26/19 Unknown Urine Nitrite Neg (Negative) 10/26/19 Unknown Urine Bilirubin Neg (Negative) 10/26/19 Unknown Urine Urobilinogen < 2.0 mg/dL (<2.0) 10/26/19 Unknown Ur Leukocyte Esterase Neg (Negative) 10/26/19 Unknown Urine WBC (Auto) 1.0 /HPF (0.0-6.0) 10/26/19 Unknown Urine RBC (Auto) 1.0 /HPF (0.0-6.0) 10/26/19 Unknown Urine Bacteria (Auto) 1+ /HPF (Negative) 10/11/19 06:23 Urine Mucus Few /HPF 10/26/19 Unknown Urine Eosinophils None seen (None Seen) 10/11/19 06:23 Ur Random Creatinine See scanned result 10/11/19 Unknown U Random Total Protein See scanned result 10/11/19 Unknown Urine Creatinine 116.8 mg/dL (0.1-20.0) H 10/11/19 06:23 Urine Creatinine 118.2 mg/dL (0.1-20.0) H 10/11/19 06:23 Protein/Creatinin Ratio See scanned result 10/11/19 Unknown Urine Sodium 14 mmol/L 10/11/19 06:23 Urine Total Protein 104 mg/dL (5-11.8) H 10/11/19 06:23 Urine Total Protein 105 mg/dL (5-11.8) H 10/11/19 06:23 U Abnormal Prot Band 1 See scanned result 10/11/19 Unknown U Abnormal Prot Band 2 See scanned result 10/11/19 Unknown U Abnormal Prot Band 3 See scanned result 10/11/19 Unknown Vancomycin Trough 5.7 ug/mL (5.0-20.0) 11/05/19 09:00 Random Vancomycin 9.6 ug/mL (0-40.0) 11/03/19 03:42 Digoxin 0.7 ng/mL (0.9-2.0) L 10/19/19 04:21 Blood Type A POSITIVE 10/23/19 11:50 Antibody Screen Negative 10/23/19 11:50 Crossmatch See Detail 10/23/19 11:50 Active Medications - Current Medications Current Medications: Generic Name Dose Route Start Last Admin Trade Name Freq PRN Reason Stop Dose Admin Acetaminophen 650 mg 10/25/19 13:00 11/20/19 03:52 Tylenol FEEDTUBE 650 mg Q4H PRN Administration Fever >100.5 Acetaminophen/Hydrocodone Bitart 7.5 mg 11/18/19 19:00 11/21/19 03:04 Hydrocodone/Apap 7.5-325 PO 7.5 mg Q4H PRN Administration Pain, Moderate (4-6) Albuterol/Ipratropium 1 ampul 10/06/19 02:00 11/21/19 07:53 Duoneb *Not For Prn Use* IH 1 ampul Q6HRT VERÓNICA Administration Amiodarone HCl 200 mg 10/23/19 13:00 11/21/19 10:31 Cordarone PO 200 mg QDAY VERÓNICA Administration Lipase/Protease/Amylase 1 each 10/20/19 10:37 Pancremeeta Moreno 10,500 Unit FEEDTUBE PRN PRN For Clogged Feeding Tube Arformoterol Tartrate 15 mcg 10/06/19 08:30 11/21/19 07:53 Brovana Nebu IH 15 mcg Q12HRT VERÓNICA Administration Budesonide 0.5 mg 10/07/19 12:20 11/21/19 07:53 Pulmicort IH 0.5 mg Q12HRT VERÓNICA Administration Citalopram Hydrobromide 20 mg 10/27/19 12:00 11/21/19 10:31 Celexa PO 20 mg DAILY VERÓNICA Administration Diphenhydramine HCl 25 mg 11/17/19 20:15 11/17/19 20:58 Benadryl PO 25 mg Q6H PRN Administration Itching Enoxaparin Sodium 40 mg 11/05/19 22:00 11/20/19 21:10 Enoxaparin SUB-Q 40 mg QDAY@2200 VERÓNICA Administration Haloperidol Lactate 5 mg 10/25/19 18:22 11/12/19 03:33 Haldol IV 5 mg Q6H PRN Administration Agitation Hydralazine HCl 10 mg 10/28/19 14:09 11/02/19 15:34 Apresoline IV 10 mg Q4HR PRN Administration Hypertension Hydromorphone HCl 2 mg 10/25/19 12:35 11/19/19 10:41 Dilaudid IV 2 mg Q4H PRN Administration Pain , Severe (7-10) Insulin Human Lispro 0 unit 10/14/19 12:00 11/21/19 05:50 Humalog SUB-Q Not Given Q6HR [facility] Protocol Lisinopril 20 mg 10/30/19 10:00 11/20/19 09:22 Zestril PO Not Given QDAY [facility] Metoprolol Tartrate 2.5 mg 10/15/19 15:34 11/01/19 18:00 Metoprolol IV 2.5 mg Q4HR PRN Administration HR >130 Metoprolol Tartrate 50 mg 10/25/19 14:00 11/21/19 05:50 Metoprolol PO Not Given Q8HR [facility] Multi-Ingred Cream/Lotion/Oil/Oint 1 applic 10/14/19 02:19 Artificial Tears Ophth Oint OU Q4HR PRN Dry Eye(s) Pantoprazole Sodium 40 mg 11/20/19 10:00 11/21/19 10:31 Protonix PO 40 mg DAILY VERÓNICA Administration Simple Syrup 15 ml 10/20/19 10:37 Simple Syrup FEEDTUBE PRN PRN Hypoglycemia Simple Syrup 30 ml 10/20/19 10:37 Simple Syrup FEEDTUBE PRN PRN Hypoglycemia Sodium Bicarbonate 325 mg 10/20/19 10:37 11/14/19 05:59 Sodium Bicarbonate FEEDTUBE 325 mg PRN PRN Administration For Clogged Feeding Tube Sodium Chloride 10 ml 11/07/19 19:32 11/18/19 22:05 Sodium Chloride Flush Syringe 10 Ml IV 10 ml PRN PRN Administration LINE FLUSH Zolpidem Tartrate 5 mg 11/10/19 21:00 11/11/19 03:30 Ambien FEEDTUBE 5 mg QHS PRN Administration Sleep Nutrition/Malnutrition Assess - Dietary Evaluation Nutrition/Malnutrition Findings: Nutrition Notes Start: 10/08/19 11:36 Freq: Status: Active Protocol: Document 11/19/19 15:12 LM (Rec: 11/19/19 15:18 LM [id number]) Nutrition Notes Initial or Follow up Reassessment Current Diagnosis Acute Kidney Injury,COPD, Hypertension Other Pertinent Diagnosis intra-abdominal infection, disruption of bowel anastomosis, LE edema Current Diet Regular Labs/Tests Reviewed Pertinent Medications Reviewed Height 6 ft Weight 145 kg [place] Body Weight (kg) 80.90 BMI 43.3 Weight Status Morbidly Obese Subjective/Other Information Pt stated he does not like the hospital food. Pt's brought pt de dios, eggs w/ cheese this AM, which pt ate 100% of. Pt does care for Ensure due to not liking the texture. Percent of energy/protein needs met: unable to determine Burn Absent Trauma Absent GI Symptoms None Current % PO Good (75-100%) Minimum of two criteria No Fluid Accumulation Mild (non-severe) #2 Nutrition Diagnosis Inadequate oral intake Diagnosis Progress(for reassessment Resolved documentation) #1 Nutrition Diagnosis Increased nutrient needs ( specify in comment below) Diagnosis Progress(for reassessment Continues documentation) Is patient on ventilator? No Is Patient Ambulatory and/or Out of Bed No REE-([place]-St. Jeor-confined to bed) 2785.236 Kcal/Kg value to use for calculation 14 Approximate Energy Requirements Using 2030 kcal/Kg Calculation Used for Recommendations Kcal/kg Additional Notes Protein: 136-169g (1.2-1.5g/kg ) AdjBW 113kg Fluid 1 ml/kcal or per MD Nutrition Intervention Change Diet Order: Continue regular Add Supplement/Snack (indicate name/kcal D/C /protein ) Goal #1 Meet at least 80% of energy and protein needs via PO intakes Anticipated Discharge Needs: Regular diet Follow-Up By: 11/22/19 Additional Comments F/U for PO intakes
--- NOTE | 2019-11-21 13:43 | Progress Note ---
Assessment and Plan - Patient Problems (1) Dehiscence of closure of fascia, superficial or muscular Current Visit: No Status: Acute Qualifiers: Encounter type: initial encounter Qualified Code(s): T81.32XA - Disruption of internal operation (surgical) wound, not elsewhere classified, initial encounter Plan to address problem: Pt stable. s/p ex lap with closure of abdominal wall and wound vac placement (10/05) - POD#47; s/p Re-exploration, washout, transection of colon, Abthera placement - 10/13 - POD#39; s/p abd washout, partial omentectomy, partial colectomy with colostomy - 10/16 POD#36; s/p abd washout, feeding tube placement, AbThera placement - 10/19 - POD#33; Abdominal washout and closure - 10/22 - POD#30 Patient appears stable. Rec: 1) Neuro - self-extubated 11/04. 2) CV - BP normal today. Discussed transfusion and BP med adjustment with Dr. White to help improve Mr. Moreno's BP in order for him to better tolerate PT 3) Resp - On NC. Small bore CT on left - removed 11/02. 4) GI - Ostomy looks good. Functioning. Sump drains - Right drain was accidentally pulled out (10/30). Left one is still functioning. New small bore catheter placed 10/30 - moderate output after drain was stripped. Has appeared like stool. looking thinner and more yellow today. Plan to connect both to wall suction - continuous. Output slowly trending down. Minimal fluid in tubing. Will cap today. If the other drains continue to work and patient has shown no signs of clinic change, will remove tomorrow. Midline drain - seems to be working well. may eventually become main drain and we can remove the two left sided drains if their output is minimal. Wound Vac - wound looked good on last check. continue wound vac. Ostomy - functioning. Gastric Port - May be used as needed for feeds or meds 5) - BUN/Cr stable. 6) ID - Abx per ID. Enterococcus on cultures. If patient has worsening labs/vitals, then rescan and place additional drains as appropriate. Discussed Abx plan with Dr. Lorenzo. I am ok with trial off Abx, 7) Nutrition - Oral nutrition. Check prealbumin next Tuesday Passed Speech Eval. 8) DVT prophylaxis - SCDs. Lovenox 9) Family -no family at bedside. 10) PT - will need rehab. 11) Dispo - Ok for transfer to rehab from my perspective. Await Rehab decision on acceptance. Note: Spoke with [place] [facility] surgeon on 11/01/19 about possible transfer. They reviewed the notes that were sent and we discussed the case. They felt that they had nothing else to offer. They agreed with our management. Also agreed that another exploration should not be done. If needed, additional drains can be placed. They did suggest putting a [place] tube in the rectum to decompress that area. (That has been done). This conversation was communicated to the . Please call with questions. Subjective Date of service: 11/21/19 Patient Reports: Positive: no new complaints, still having pain (at the left sump drain site. ), tolerating a regular diet, bowel movement. Negative: nausea, vomiting Objective Vital Signs - 12hr 11/21/19 11/21/19 11/21/19 03:55 07:56 08:48 Temperature 97.8 F Pulse Rate 95 H 99 H Pulse Rate [ 82 Anterior Bilateral Throughout] Pulse Rate [ 96 H Posterior Bilateral Throughout] Respiratory 18 Rate Respiratory 18 Rate [Anterior Bilateral Throughout] Respiratory 20 Rate [Posterior Bilateral Throughout] Blood Pressure 118/59 111/44 O2 Sat by Pulse 98 98 93 Oximetry 11/21/19 10:00 Temperature Pulse Rate 99 H Pulse Rate [ Anterior Bilateral Throughout] Pulse Rate [ Posterior Bilateral Throughout] Respiratory Rate Respiratory Rate [Anterior Bilateral Throughout] Respiratory Rate [Posterior Bilateral Throughout] Blood Pressure 114/44 O2 Sat by Pulse Oximetry - General physical appearance no distress, no pain - Eyes normal occular movement - Respiratory normal respiratory effort - Abdomen soft, tender (only at drain sites), not distended - Labs 11/21/19 07:40 11/21/19 07:40 Diabetes panel 11/21/19 Range/Units 07:40 Sodium 138 (137-145) mmol/L Potassium 3.6 (3.6-5.0) mmol/L Chloride 99.7 (98-107) mmol/L Carbon Dioxide 22 (22-30) mmol/L BUN 10 (9-20) mg/dL Creatinine 0.5 L (0.8-1.5) mg/dL Glucose 94 (75-100) mg/dL Calcium 9.2 (8.4-10.2) mg/dL Calcium panel 11/21/19 Range/Units 07:40 Calcium 9.2 (8.4-10.2) mg/dL Pituitary panel 11/21/19 Range/Units 07:40 Sodium 138 (137-145) mmol/L Potassium 3.6 (3.6-5.0) mmol/L Chloride 99.7 (98-107) mmol/L Carbon Dioxide 22 (22-30) mmol/L BUN 10 (9-20) mg/dL Creatinine 0.5 L (0.8-1.5) mg/dL Glucose 94 (75-100) mg/dL Calcium 9.2 (8.4-10.2) mg/dL Adrenal panel 11/21/19 Range/Units 07:40 Sodium 138 (137-145) mmol/L Potassium 3.6 (3.6-5.0) mmol/L Chloride 99.7 (98-107) mmol/L Carbon Dioxide 22 (22-30) mmol/L BUN 10 (9-20) mg/dL Creatinine 0.5 L (0.8-1.5) mg/dL Glucose 94 (75-100) mg/dL Calcium 9.2 (8.4-10.2) mg/dL
[2019-11-21] MEDS ORDERED: METOPROLOL TARTRATE 50 MG TAB PO SCH (14:40)
[2019-11-21] MEDS ORDERED: SODIUM CHLORIDE 0.9% 500 ML 500 ML IV SCH (16:00)
[2019-11-21] MEDS: ENOXAPARIN 40 MG/0.4 ML INJ SUB-Q SCH (21:17)
[2019-11-22] MEDS: INSULIN LISPRO 100 UNIT/ML SUB-Q SCH ×4 (01:09→21:56)
[2019-11-22] MEDS: IPRATROPIUM/ALBUTEROL SULFATE 3 ML AMPUL.NEB IH SCH ×4 (03:50→21:11)
[2019-11-22] MEDS: METOPROLOL TARTRATE 50 MG TAB PO SCH ×3 (06:17→22:55)
[2019-11-22 08:25] LABS: Basophils # (Auto) 0.1 K/mm3 (0.0-0.1); Basophils % (Auto) 0.5 % (0.0-1.8); Eosinophils # (Auto) 0.1 K/mm3 (0.0-0.4); Eosinophils % (Auto) 0.9 % (0.0-4.3); Hemoglobin 8.2 gm/dl (11.8-15.2); Lymphocytes # (Auto) 1.1 K/mm3 (1.2-5.4); Lymphocytes % (Auto) 7.8 % (13.4-35.0); Monocytes % (Auto) 7.5 % (0.0-7.3)
[2019-11-22 08:46] LABS: Hematocrit 24.7 % (35.5-45.6); Mean Corpuscular HGB Conc 33 % (32-34); Mean Corpuscular Volume 83 fl (84-94); Platelet Count 428 K/mm3 (140-440); Red Blood Count 2.99 M/mm3 (3.65-5.03); Red Cell Distribution Width 16.5 % (13.2-15.2)
[2019-11-22] MEDS: HYDROcodone/APAP 7.5-325MG-15ML ORAL LIQD PO PRN ×2 (08:48→15:38)
--- NOTE | 2019-11-22 08:53 | Progress Note ---
Assessment and Plan 54 y/o male with anastomic leak 11/22/19: Pulm status stable. Will see as needed. Agree, stable for transfer to acute rehab 11/12/19: Spoke with surgery this am. Currently pleased with progress. Reviewed IR note, and they plan to remove CT today. Continue IS. Will speak with CM about looking into rehabs directly from IMCU as oppose to transferring to the floor first. 11/06: Chest tube intact. No air leak. Will ask IR if catheter can be pulled out normally (i.e. not some form of tunneled catheter). If so will have them take it out later this week. If [facility] beds available, good candidate for there, likely not quite ready for floor yet. 11/04: Stable self extubation. Continue chest tube to suction. Will likely start waterseal tomorrow. Goad maybe to get CT out Tuesday. All other drains per surgery. Encouraged use of IS regularly at the bedside and suctioning as needed per . 11/03: Looks clinically better. Na was better on repeat labs. Spoke with and surgery to update them both. Most likely will attempt extubation in the am. Will hold feeds for about an hour in the morning prior to extubation then restart. 11/02: Repeat labs this am. Hard time believing that 2 liters of normal saline made his sodium increase that much. Also, once i discuss with surgery, may consider giving more blood. Will also hold tube feeds briefly as well. In case any procedures. Lovenox held last night. Continue vent support 11/01: Spoke with Dr. Krause this am and understand his concerns. Have started the transfer process. Most ICU's throughout the city are on diversion or full. [facility] has received his Faces[facility] and we are awaiting to hear back from them. CXR is clear. Minimal vent settings. Will continue supportive care for now. Follow up any new ID recs given increasing white and fever. 10/31: Will check CXR tomorrow. Continue chest tube to suction. Will likely stay in until extubated. Continue drains. Explained to staff to be extremely careful with these drains so that they do not come out. 10/30: Acute on chronic respiratory failure requiring reintubation. Appreciate Anesthesia assistance as he was a difficult intubation when we had to change his tube out about 1 week ago. Will continue on 100% until after Scans and then start to wean back down. CXR yesterday looked like pulmonary edema but improved today with positive pressure. Continue supportive care and await results of scans. 10/29: Discussed today on rounds. Patient had some issues over the weekend with the ICE chips and liquids. Will obtain speech consult/eval prior to restarting clears today. Spoke with nutrition and they will adjust tube feeds with new goal. Once at goal will start to taper off TPN. ordered Incentive madhu to bedside. Will also restart home dose of elaine today. pain control and drainage monitoring. Will continue ICU care. 10/26: Patient stable overall. Not ready for floor. Would be ok with step down if beds are needed. If spikes temp again will order blood cultures x2, urine culture, UA and repeat CXR. Gave an additional 40 of lasix this am. Will give more potassium replacement. Continue trickle feeds for now. Will continue PO meds and restart home dose of citalopram. Wean FiO2 and flow for sats >88%. Mildly hypertensive but this was secondary to agitation. Normalizing now. 10/25: Will extubate today. Will use HFNC if distress or hypoxemia is noted. Not a good candidate for bipap given his recent abdominal issues. Spoke with who is now at bedside and surgery. Will continue to attempt to achieve net negative state daily. Hold on further albumin administration. Hypernatremia is iatrogenic from lasix administration Worse case scenario, will re-intubate with anesthesia. 10/24: Responding well to lasix and protein therapy. Will give 2 more doses of lasix today. Consider one for tonight as well. Last albumin today at 1800. CXR is stable, still with layering bilateral pleural effusions. Will reassess again tomorrow. Reviewed all other internal audit consultant notes. Spoke with sisters at bedside, updated and spoke with surgery. 10/23: Long discussion with surgery and via phone. Anasarca is likely from decreased oncotic pressure and immobility of several days now that abdomen is finally closed. Now fluid is essentially leaking into the interstitium now that the abdomen is shut and there is increased intra-abdominal pressure. Total Protein is 4.5 and albumin is 1.2. This is to be expected given current illness. Will attempt to increase oncotic pressure with 2 units of PRBC's and albumin infusions for the next 24 hours starting at midnight tonight. Will give lasix inbetween transfusions and then again tonight. CXR is consistent with pulmonary edema volume overload. Will continue vent for now and after significant volume removal then will attempt extubation. Discussed with and she understands. Will continue to monitor. Agree with trickle feeds and cards has switched amio over to PO to be given through the G-tube. If tolerates, hopeful to be rid of TPN soon as this is necessary but excessive volume as well. 10/22: Added diprovan as more sedation was needed. Hopefully once closed and no leaks, patient can be extubated. Cards very concerned about length of time for IV amio. Will discuss with surgery the time frame that gut can be used. 10/21: Will hold on weaning until abdomen is closed, especially knowing mental status is good. Will focus on pain control. Replace electrolytes. Appreciate Surgery recs and detail. Follow up any new recs from cards. Or tomorrow for closure Subjective Date of service: 11/22/19 Principal diagnosis: acute renal failure Interval history: No acute issues. Pulm status is stable. Objective Vital Signs - 12hr 11/21/19 11/21/19 11/21/19 21:17 21:25 21:37 Temperature Pulse Rate 72 Pulse Rate [ 88 Anterior Bilateral Throughout] Pulse Rate [ From Monitor] Respiratory Rate Respiratory 16 Rate [Anterior Bilateral Throughout] Blood Pressure 119/54 O2 Sat by Pulse 98 Oximetry 11/21/19 11/21/19 11/21/19 22:00 23:48 23:55 Temperature 98.5 F Pulse Rate 87 91 H Pulse Rate [ Anterior Bilateral Throughout] Pulse Rate [ 80 From Monitor] Respiratory 18 20 Rate Respiratory Rate [Anterior Bilateral Throughout] Blood Pressure 121/56 O2 Sat by Pulse 95 Oximetry 11/21/19 11/22/19 11/22/19 23:56 04:04 06:17 Temperature 98.7 F Pulse Rate 75 77 75 Pulse Rate [ Anterior Bilateral Throughout] Pulse Rate [ From Monitor] Respiratory 18 Rate Respiratory Rate [Anterior Bilateral Throughout] Blood Pressure 121/56 113/52 113/52 O2 Sat by Pulse 98 Oximetry 11/22/19 08:11 Temperature 98.6 F Pulse Rate 79 Pulse Rate [ Anterior Bilateral Throughout] Pulse Rate [ From Monitor] Respiratory 20 Rate Respiratory Rate [Anterior Bilateral Throughout] Blood Pressure 116/55 O2 Sat by Pulse 97 Oximetry Constitutional: no acute distress, alert, other (obese) Eyes: non-icteric ENT: oropharynx moist Neck: supple Effort: normal Ascultation: Bilateral: diminished breath sounds (bases) Cardiovascular: regular rate and rhythm (no mrg) Gastrointestinal: tender, other (obese, distended, ostomy in place; wound vac in place) Integumentary: normal Extremities: no cyanosis, pink and warm, edema (1+ bilateral LE edema) Neurologic: normal mental status, non-focal exam, pupils equal and round Psychiatric: mood appropriate, affect normal CBC and BMP: 11/22/19 08:13 11/21/19 07:40 ABG, PT/INR, D-dimer: ABG POC ABG pH 7.422 (7.35-7.45) 11/03/19 04:28 ABG pH 7.390 pH Units (7.350-7.450) 10/23/19 04:47 POC ABG pCO2 45.4 (35-45) H 11/03/19 04:28 ABG pCO2 48.4 mm Hg 10/23/19 04:47 POC ABG pO2 83 (80-105) 11/03/19 04:28 ABG pO2 68.9 mm Hg (80.0-90.0) L 10/23/19 04:47 POC ABG HCO3 29.6 (22-26 mml/L) 11/03/19 04:28 POC ABG Total CO2 31 (23-27mmol/L) 11/03/19 04:28 POC ABG O2 Sat 96 11/03/19 04:28 ABG O2 Saturation 96.6 % (95.0-99.0) 10/23/19 04:47 Abnormal lab findings: Abnormal Labs 10/06/19 10/06/19 10/07/19 05:36 05:36 05:54 WBC 21.8 H 21.5 H RBC 3.55 L Hgb 10.9 L Hct 32.7 L MCV MCH MCHC RDW Plt Count Lymph % (Auto) Iron % (Auto) Lymph # Iron # Seg Neutrophils % Seg Neuts % (Manual) 91.0 H Lymphocytes % (Manual) 2.0 L Seg Neutrophils # Seg Neutrophils # Man 19.8 H Lymphocytes # (Manual) 0.4 L Monocytes # (Manual) 1.1 H POC ABG pH ABG pH POC ABG pCO2 POC ABG pO2 ABG pO2 ABG HCO3 ABG Base Excess ABG Hemoglobin Oxyhemoglobin Sodium 135 L Potassium Chloride 95.9 L Carbon Dioxide BUN Creatinine 0.7 L Glucose POC Glucose Calcium Phosphorus Magnesium Direct Bilirubin AST Alkaline Phosphatase C-Reactive Protein Serum Total Protein Total Protein 5.7 L Albumin 2.5 L Prealbumin Yfula-4-Cjyacmfkz Yieky-5-Eosoewtag Gamma Globulins PEP Interpretation Triglycerides Urine pH Urine Creatinine Urine Total Protein Vancomycin Trough Digoxin Crossmatch 10/07/19 10/09/19 10/09/19 05:54 10:52 10:52 WBC 16.6 H RBC Hgb Hct MCV MCH MCHC RDW Plt Count 498 H Lymph % (Auto) Iron % (Auto) Lymph # Iron # Seg Neutrophils % Seg Neuts % (Manual) 93.0 H Lymphocytes % (Manual) 5.0 L Seg Neutrophils # Seg Neutrophils # Man 15.4 H Lymphocytes # (Manual) 0.8 L Monocytes # (Manual) POC ABG pH ABG pH POC ABG pCO2 POC ABG pO2 ABG pO2 ABG HCO3 ABG Base Excess ABG Hemoglobin Oxyhemoglobin Sodium Potassium Chloride 97.9 L Carbon Dioxide 20 L D BUN 23 H Creatinine 1.7 H D Glucose 109 H POC Glucose Calcium 8.1 L Phosphorus Magnesium Direct Bilirubin AST Alkaline Phosphatase C-Reactive Protein Serum Total Protein Total Protein Albumin Prealbumin Nwsql-5-Yvjkvafbz Lbkxp-0-Zlmemqfdx Gamma Globulins PEP Interpretation Triglycerides Urine pH Urine Creatinine Urine Total Protein Vancomycin Trough Digoxin Crossmatch 10/09/19 10/10/19 10/10/19 17:23 05:30 05:30 WBC 14.6 H RBC Hgb 11.1 L Hct 33.5 L MCV MCH MCHC RDW Plt Count 527 H Lymph % (Auto) Iron % (Auto) Lymph # Iron # Seg Neutrophils % Seg Neuts % (Manual) Lymphocytes % (Manual) Seg Neutrophils # Seg Neutrophils # Man Lymphocytes # (Manual) Monocytes # (Manual) POC ABG pH ABG pH POC ABG pCO2 POC ABG pO2 ABG pO2 ABG HCO3 ABG Base Excess ABG Hemoglobin Oxyhemoglobin Sodium 130 L D Potassium 5.1 H Chloride 90.0 L 91.0 L Carbon Dioxide 20 L 20 L BUN 27 H 35 H Creatinine 1.9 H 2.0 H Glucose 104 H POC Glucose Calcium Phosphorus Magnesium Direct Bilirubin AST Alkaline Phosphatase C-Reactive Protein Serum Total Protein Total Protein Albumin Prealbumin Ujbzr-1-Iehzmtnsv Ijymh-8-Yqduskrjv Gamma Globulins PEP Interpretation Triglycerides Urine pH Urine Creatinine Urine Total Protein Vancomycin Trough Digoxin Crossmatch 10/10/19 10/10/19 10/11/19 08:33 08:44 05:41 WBC 13.2 H RBC Hgb 11.3 L Hct 33.8 L MCV MCH MCHC RDW 15.3 H Plt Count 543 H Lymph % (Auto) Iron % (Auto) Lymph # Iron # Seg Neutrophils % Seg Neuts % (Manual) Lymphocytes % (Manual) Seg Neutrophils # Seg Neutrophils # Man Lymphocytes # (Manual) Monocytes # (Manual) POC ABG pH ABG pH POC ABG pCO2 POC ABG pO2 ABG pO2 ABG HCO3 ABG Base Excess ABG Hemoglobin Oxyhemoglobin Sodium Potassium Chloride Carbon Dioxide BUN Creatinine Glucose 113 H POC Glucose 117 H Calcium Phosphorus Magnesium Direct Bilirubin AST Alkaline Phosphatase C-Reactive Protein Serum Total Protein Total Protein Albumin Prealbumin Ufkpq-3-Hkijisffv Txbzd-6-Hvceoukiw Gamma Globulins PEP Interpretation Triglycerides Urine pH Urine Creatinine Urine Total Protein Vancomycin Trough Digoxin Crossmatch 10/11/19 10/11/19 10/11/19 05:41 06:23 06:23 WBC RBC Hgb Hct MCV MCH MCHC RDW Plt Count Lymph % (Auto) Iron % (Auto) Lymph # Iron # Seg Neutrophils % Seg Neuts % (Manual) Lymphocytes % (Manual) Seg Neutrophils # Seg Neutrophils # Man Lymphocytes # (Manual) Monocytes # (Manual) POC ABG pH ABG pH POC ABG pCO2 POC ABG pO2 ABG pO2 ABG HCO3 ABG Base Excess ABG Hemoglobin Oxyhemoglobin Sodium 134 L Potassium Chloride 96.3 L Carbon Dioxide BUN 37 H Creatinine Glucose 58 L POC Glucose Calcium Phosphorus 4.90 H Magnesium Direct Bilirubin AST Alkaline Phosphatase C-Reactive Protein Serum Total Protein Total Protein Albumin Prealbumin Kxkbi-7-Tdiffgfwo Ndnog-0-Cnljmbudm Gamma Globulins PEP Interpretation Triglycerides Urine pH Urine Creatinine 118.2 H 116.8 H Urine Total Protein 105 H 104 H Vancomycin Trough Digoxin Crossmatch 10/11/19 10/12/19 10/12/19 09:00 06:09 06:09 WBC 13.8 H RBC 3.39 L Hgb 10.2 L Hct 30.9 L MCV MCH MCHC RDW 15.5 H Plt Count 459 H Lymph % (Auto) Iron % (Auto) Lymph # Iron # Seg Neutrophils % Seg Neuts % (Manual) Lymphocytes % (Manual) Seg Neutrophils # Seg Neutrophils # Man Lymphocytes # (Manual) Monocytes # (Manual) POC ABG pH ABG pH POC ABG pCO2 POC ABG pO2 ABG pO2 ABG HCO3 ABG Base Excess ABG Hemoglobin Oxyhemoglobin Sodium 131 L Potassium Chloride 96.2 L Carbon Dioxide 21 L BUN 43 H Creatinine Glucose 72 L POC Glucose Calcium Phosphorus Magnesium Direct Bilirubin AST Alkaline Phosphatase C-Reactive Protein Serum Total Protein 5.2 L Total Protein Albumin 1.9 L Prealbumin Ppgel-6-Qlmjopzvo 0.9 H Yzxfi-8-Wiyinsxcb 1.0 H Gamma Globulins 0.7 L PEP Interpretation see below H Triglycerides Urine pH Urine Creatinine Urine Total Protein Vancomycin Trough Digoxin Crossmatch 10/12/19 10/12/19 10/12/19 08:20 09:30 09:30 WBC RBC Hgb Hct MCV MCH MCHC RDW Plt Count Lymph % (Auto) Iron % (Auto) Lymph # Iron # Seg Neutrophils % Seg Neuts % (Manual) Lymphocytes % (Manual) Seg Neutrophils # Seg Neutrophils # Man Lymphocytes # (Manual) Monocytes # (Manual) POC ABG pH ABG pH POC ABG pCO2 POC ABG pO2 63 L ABG pO2 ABG HCO3 ABG Base Excess ABG Hemoglobin Oxyhemoglobin Sodium Potassium Chloride Carbon Dioxide BUN Creatinine Glucose POC Glucose Calcium Phosphorus Magnesium 2.50 H Direct Bilirubin 0.3 H AST Alkaline Phosphatase C-Reactive Protein Serum Total Protein Total Protein 5.1 L Albumin 2.2 L Prealbumin Lehrs-4-Cuxyklvdg Dvnxm-9-Dvmprhspn Gamma Globulins PEP Interpretation Triglycerides Urine pH Urine Creatinine Urine Total Protein Vancomycin Trough Digoxin Crossmatch 10/13/19 10/13/19 10/13/19 04:20 04:20 13:20 WBC 15.7 H RBC 3.64 L Hgb 10.9 L Hct 33.1 L MCV MCH MCHC RDW 15.8 H Plt Count 488 H Lymph % (Auto) Iron % (Auto) Lymph # Iron # Seg Neutrophils % Seg Neuts % (Manual) Lymphocytes % (Manual) Seg Neutrophils # Seg Neutrophils # Man Lymphocytes # (Manual) Monocytes # (Manual) POC ABG pH ABG pH POC ABG pCO2 POC ABG pO2 ABG pO2 ABG HCO3 ABG Base Excess ABG Hemoglobin Oxyhemoglobin Sodium Potassium Chloride Carbon Dioxide BUN 28 H Creatinine Glucose POC Glucose Calcium Phosphorus Magnesium Direct Bilirubin AST Alkaline Phosphatase C-Reactive Protein Serum Total Protein Total Protein Albumin Prealbumin Okxhz-3-Oadjnxsfn Giuuh-7-Fnpzjzsel Gamma Globulins PEP Interpretation Triglycerides Urine pH Urine Creatinine Urine Total Protein Vancomycin Trough Digoxin Crossmatch See Detail 10/13/19 10/13/19 10/14/19 18:24 20:05 04:47 WBC 24.2 H RBC Hgb 10.9 L Hct 34.2 L MCV MCH MCHC RDW 17.0 H Plt Count 442 H Lymph % (Auto) Iron % (Auto) Lymph # Iron # Seg Neutrophils % Seg Neuts % (Manual) Lymphocytes % (Manual) Seg Neutrophils # Seg Neutrophils # Man Lymphocytes # (Manual) Monocytes # (Manual) POC ABG pH ABG pH 7.180 L* 7.278 L POC ABG pCO2 POC ABG pO2 ABG pO2 130.7 H ABG HCO3 ABG Base Excess -6.5 L -6.5 L ABG Hemoglobin 12.2 L 12.3 L Oxyhemoglobin 92.9 L Sodium Potassium Chloride Carbon Dioxide BUN Creatinine Glucose POC Glucose Calcium Phosphorus Magnesium Direct Bilirubin AST Alkaline Phosphatase C-Reactive Protein Serum Total Protein Total Protein Albumin Prealbumin Wuide-4-Xncaooyhv Tomop-0-Erwriomts Gamma Globulins PEP Interpretation Triglycerides Urine pH Urine Creatinine Urine Total Protein Vancomycin Trough Digoxin Crossmatch 10/14/19 10/14/19 10/14/19 04:47 05:40 10:14 WBC RBC Hgb Hct MCV MCH MCHC RDW Plt Count Lymph % (Auto) Iron % (Auto) Lymph # Iron # Seg Neutrophils % Seg Neuts % (Manual) Lymphocytes % (Manual) Seg Neutrophils # Seg Neutrophils # Man Lymphocytes # (Manual) Monocytes # (Manual) POC ABG pH ABG pH POC ABG pCO2 POC ABG pO2 ABG pO2 76.3 L ABG HCO3 19.1 L ABG Base Excess -5.8 L ABG Hemoglobin 10.9 L Oxyhemoglobin 93.4 L Sodium Potassium 5.1 H D Chloride 109.2 H Carbon Dioxide 17 L BUN 38 H Creatinine 1.8 H D Glucose 104 H POC Glucose Calcium 7.4 L Phosphorus 5.60 H Magnesium Direct Bilirubin AST Alkaline Phosphatase C-Reactive Protein Serum Total Protein Total Protein Albumin Prealbumin Tlcqv-9-Yjjjtwuhb Ubkjj-3-Hjxsifxqn Gamma Globulins PEP Interpretation Triglycerides Urine pH Urine Creatinine Urine Total Protein Vancomycin Trough Digoxin Crossmatch 10/14/19 10/15/19 10/15/19 23:46 04:32 04:32 WBC 15.5 H RBC 2.89 L Hgb 8.8 L Hct 27.3 L D MCV MCH MCHC RDW 16.6 H Plt Count Lymph % (Auto) Iron % (Auto) Lymph # Iron # Seg Neutrophils % Seg Neuts % (Manual) Lymphocytes % (Manual) Seg Neutrophils # Seg Neutrophils # Man Lymphocytes # (Manual) Monocytes # (Manual) POC ABG pH ABG pH POC ABG pCO2 POC ABG pO2 ABG pO2 ABG HCO3 ABG Base Excess ABG Hemoglobin Oxyhemoglobin Sodium 147 H Potassium Chloride 114.0 H Carbon Dioxide 19 L BUN 42 H Creatinine Glucose 112 H POC Glucose 113 H Calcium 7.3 L Phosphorus Magnesium Direct Bilirubin AST 72 H Alkaline Phosphatase C-Reactive Protein 30.60 H Serum Total Protein Total Protein 4.0 L D Albumin 1.7 L Prealbumin 0.030 L Mfasu-4-Vbcjmfclu Lthxv-6-Fxzmqwzsa Gamma Globulins PEP Interpretation Triglycerides Urine pH Urine Creatinine Urine Total Protein Vancomycin Trough Digoxin Crossmatch 10/15/19 10/15/19 10/15/19 05:30 12:08 17:23 WBC RBC Hgb Hct MCV MCH MCHC RDW Plt Count Lymph % (Auto) Iron % (Auto) Lymph # Iron # Seg Neutrophils % Seg Neuts % (Manual) Lymphocytes % (Manual) Seg Neutrophils # Seg Neutrophils # Man Lymphocytes # (Manual) Monocytes # (Manual) POC ABG pH ABG pH 7.296 L POC ABG pCO2 POC ABG pO2 ABG pO2 114.7 H ABG HCO3 ABG Base Excess -3.7 L ABG Hemoglobin 8.9 L Oxyhemoglobin Sodium Potassium Chloride Carbon Dioxide BUN Creatinine Glucose POC Glucose 106 H 106 H Calcium Phosphorus Magnesium Direct Bilirubin AST Alkaline Phosphatase C-Reactive Protein Serum Total Protein Total Protein Albumin Prealbumin Jfugd-2-Xjyvvlcct Vfamu-8-Qdmcjkuof Gamma Globulins PEP Interpretation Triglycerides Urine pH Urine Creatinine Urine Total Protein Vancomycin Trough Digoxin Crossmatch 10/16/19 10/16/19 10/16/19 00:07 04:44 05:24 WBC RBC Hgb Hct MCV MCH MCHC RDW Plt Count Lymph % (Auto) Iron % (Auto) Lymph # Iron # Seg Neutrophils % Seg Neuts % (Manual) Lymphocytes % (Manual) Seg Neutrophils # Seg Neutrophils # Man Lymphocytes # (Manual) Monocytes # (Manual) POC ABG pH ABG pH POC ABG pCO2 POC ABG pO2 ABG pO2 ABG HCO3 ABG Base Excess ABG Hemoglobin Oxyhemoglobin Sodium 150 H Potassium Chloride 115.8 H Carbon Dioxide BUN 35 H Creatinine Glucose 129 H POC Glucose 119 H 129 H Calcium 7.3 L Phosphorus 1.80 L D Magnesium Direct Bilirubin AST Alkaline Phosphatase C-Reactive Protein Serum Total Protein Total Protein Albumin Prealbumin Jsqfl-9-Sekbtahfw Hveps-2-Hcdukayow Gamma Globulins PEP Interpretation Triglycerides Urine pH Urine Creatinine Urine Total Protein Vancomycin Trough Digoxin Crossmatch 10/16/19 10/16/19 10/16/19 06:53 09:20 11:58 WBC 14.6 H RBC 2.70 L Hgb 8.1 L Hct 25.2 L MCV MCH MCHC RDW 16.7 H Plt Count Lymph % (Auto) Iron % (Auto) Lymph # Iron # Seg Neutrophils % Seg Neuts % (Manual) 79.0 H Lymphocytes % (Manual) 4.0 L Seg Neutrophils # Seg Neutrophils # Man 11.5 H Lymphocytes # (Manual) 0.6 L Monocytes # (Manual) POC ABG pH ABG pH POC ABG pCO2 47.0 H POC ABG pO2 ABG pO2 ABG HCO3 ABG Base Excess ABG Hemoglobin Oxyhemoglobin Sodium Potassium Chloride Carbon Dioxide BUN Creatinine Glucose POC Glucose Calcium Phosphorus Magnesium Direct Bilirubin AST Alkaline Phosphatase C-Reactive Protein Serum Total Protein Total Protein Albumin Prealbumin Pmfws-8-Vfoidwfyr Dxxbw-5-Ppzomulqw Gamma Globulins PEP Interpretation Triglycerides Urine pH Urine Creatinine Urine Total Protein Vancomycin Trough Digoxin Crossmatch See Detail 10/16/19 10/16/19 10/16/19 15:23 17:50 23:58 WBC RBC Hgb Hct MCV MCH MCHC RDW Plt Count Lymph % (Auto) Iron % (Auto) Lymph # Iron # Seg Neutrophils % Seg Neuts % (Manual) Lymphocytes % (Manual) Seg Neutrophils # Seg Neutrophils # Man Lymphocytes # (Manual) Monocytes # (Manual) POC ABG pH ABG pH POC ABG pCO2 POC ABG pO2 ABG pO2 ABG HCO3 ABG Base Excess ABG Hemoglobin Oxyhemoglobin Sodium Potassium Chloride Carbon Dioxide BUN Creatinine Glucose POC Glucose 221 H 201 H 179 H Calcium Phosphorus Magnesium Direct Bilirubin AST Alkaline Phosphatase C-Reactive Protein Serum Total Protein Total Protein Albumin Prealbumin Bqlnc-0-Gjtsmmsjs Yzrua-9-Zigmfffmg Gamma Globulins PEP Interpretation Triglycerides Urine pH Urine Creatinine Urine Total Protein Vancomycin Trough Digoxin Crossmatch 10/17/19 10/17/19 10/17/19 04:08 04:08 05:41 WBC 22.3 H RBC 3.35 L Hgb 10.0 L Hct 31.2 L D MCV MCH MCHC RDW 16.1 H Plt Count Lymph % (Auto) Iron % (Auto) Lymph # Iron # Seg Neutrophils % Seg Neuts % (Manual) Lymphocytes % (Manual) Seg Neutrophils # Seg Neutrophils # Man Lymphocytes # (Manual) Monocytes # (Manual) POC ABG pH 7.310 L ABG pH POC ABG pCO2 52.8 H POC ABG pO2 70 L ABG pO2 ABG HCO3 ABG Base Excess ABG Hemoglobin Oxyhemoglobin Sodium 147 H Potassium Chloride 114.9 H Carbon Dioxide BUN 36 H Creatinine Glucose 165 H POC Glucose Calcium 6.9 L Phosphorus 2.20 L D Magnesium Direct Bilirubin AST Alkaline Phosphatase C-Reactive Protein Serum Total Protein Total Protein Albumin Prealbumin Ugqel-5-Bgtantrlj Hhuno-9-Fjzerygca Gamma Globulins PEP Interpretation Triglycerides Urine pH Urine Creatinine Urine Total Protein Vancomycin Trough Digoxin Crossmatch 10/17/19 10/17/19 10/17/19 05:42 11:33 18:17 WBC RBC Hgb Hct MCV MCH MCHC RDW Plt Count Lymph % (Auto) Iron % (Auto) Lymph # Iron # Seg Neutrophils % Seg Neuts % (Manual) Lymphocytes % (Manual) Seg Neutrophils # Seg Neutrophils # Man Lymphocytes # (Manual) Monocytes # (Manual) POC ABG pH ABG pH POC ABG pCO2 POC ABG pO2 ABG pO2 ABG HCO3 ABG Base Excess ABG Hemoglobin Oxyhemoglobin Sodium Potassium Chloride Carbon Dioxide BUN Creatinine Glucose POC Glucose 149 H 154 H 163 H Calcium Phosphorus Magnesium Direct Bilirubin AST Alkaline Phosphatase C-Reactive Protein Serum Total Protein Total Protein Albumin Prealbumin Jtfud-3-Lorrkrdex Xzubg-3-Shwzzmooi Gamma Globulins PEP Interpretation Triglycerides Urine pH Urine Creatinine Urine Total Protein Vancomycin Trough Digoxin Crossmatch 10/17/19 10/18/19 10/18/19 23:34 03:29 04:50 WBC RBC Hgb Hct MCV MCH MCHC RDW Plt Count Lymph % (Auto) Iron % (Auto) Lymph # Iron # Seg Neutrophils % Seg Neuts % (Manual) Lymphocytes % (Manual) Seg Neutrophils # Seg Neutrophils # Man Lymphocytes # (Manual) Monocytes # (Manual) POC ABG pH ABG pH POC ABG pCO2 POC ABG pO2 ABG pO2 78.8 L ABG HCO3 ABG Base Excess ABG Hemoglobin 8.8 L Oxyhemoglobin Sodium Potassium Chloride 111.8 H Carbon Dioxide BUN 27 H Creatinine 0.6 L Glucose 140 H POC Glucose 135 H Calcium 7.1 L Phosphorus 1.80 L Magnesium Direct Bilirubin AST Alkaline Phosphatase C-Reactive Protein Serum Total Protein Total Protein Albumin Prealbumin Dfsqy-9-Pxkbmhevr Lnkcj-2-Oqbotyull Gamma Globulins PEP Interpretation Triglycerides Urine pH Urine Creatinine Urine Total Protein Vancomycin Trough Digoxin Crossmatch 10/18/19 10/18/19 10/18/19 05:45 11:19 18:26 WBC RBC Hgb Hct MCV MCH MCHC RDW Plt Count Lymph % (Auto) Iron % (Auto) Lymph # Iron # Seg Neutrophils % Seg Neuts % (Manual) Lymphocytes % (Manual) Seg Neutrophils # Seg Neutrophils # Man Lymphocytes # (Manual) Monocytes # (Manual) POC ABG pH ABG pH POC ABG pCO2 POC ABG pO2 ABG pO2 ABG HCO3 ABG Base Excess ABG Hemoglobin Oxyhemoglobin Sodium Potassium Chloride Carbon Dioxide BUN Creatinine Glucose POC Glucose 145 H 152 H 125 H Calcium Phosphorus Magnesium Direct Bilirubin AST Alkaline Phosphatase C-Reactive Protein Serum Total Protein Total Protein Albumin Prealbumin Isccf-6-Cblsfwzqo Npioi-4-Emuzzqwlh Gamma Globulins PEP Interpretation Triglycerides Urine pH Urine Creatinine Urine Total Protein Vancomycin Trough Digoxin Crossmatch 10/18/19 10/19/19 10/19/19 23:27 04:21 04:21 WBC RBC Hgb Hct MCV MCH MCHC RDW Plt Count Lymph % (Auto) Iron % (Auto) Lymph # Iron # Seg Neutrophils % Seg Neuts % (Manual) Lymphocytes % (Manual) Seg Neutrophils # Seg Neutrophils # Man Lymphocytes # (Manual) Monocytes # (Manual) POC ABG pH ABG pH POC ABG pCO2 POC ABG pO2 ABG pO2 ABG HCO3 ABG Base Excess ABG Hemoglobin Oxyhemoglobin Sodium Potassium Chloride 108.4 H Carbon Dioxide BUN 22 H Creatinine 0.5 L Glucose 123 H POC Glucose 127 H Calcium 7.4 L Phosphorus 1.80 L Magnesium Direct Bilirubin AST Alkaline Phosphatase C-Reactive Protein Serum Total Protein Total Protein Albumin Prealbumin Tqixe-6-Hzdooitrs Zebik-8-Aobshrdjc Gamma Globulins PEP Interpretation Triglycerides Urine pH Urine Creatinine Urine Total Protein Vancomycin Trough Digoxin 0.7 L Crossmatch 10/19/19 10/19/19 10/19/19 05:00 05:35 11:26 WBC RBC Hgb Hct MCV MCH MCHC RDW Plt Count Lymph % (Auto) Iron % (Auto) Lymph # Iron # Seg Neutrophils % Seg Neuts % (Manual) Lymphocytes % (Manual) Seg Neutrophils # Seg Neutrophils # Man Lymphocytes # (Manual) Monocytes # (Manual) POC ABG pH ABG pH 7.456 H POC ABG pCO2 POC ABG pO2 ABG pO2 78.8 L ABG HCO3 ABG Base Excess ABG Hemoglobin 5.6 L Oxyhemoglobin Sodium Potassium Chloride Carbon Dioxide BUN Creatinine Glucose POC Glucose 124 H 111 H Calcium Phosphorus Magnesium Direct Bilirubin AST Alkaline Phosphatase C-Reactive Protein Serum Total Protein Total Protein Albumin Prealbumin Fxrlc-6-Suyxcbxqm Tkghv-1-Xrsxxnnqm Gamma Globulins PEP Interpretation Triglycerides Urine pH Urine Creatinine Urine Total Protein Vancomycin Trough Digoxin Crossmatch 10/19/19 10/20/19 10/20/19 23:23 04:50 05:17 WBC RBC Hgb Hct MCV MCH MCHC RDW Plt Count Lymph % (Auto) Iron % (Auto) Lymph # Iron # Seg Neutrophils % Seg Neuts % (Manual) Lymphocytes % (Manual) Seg Neutrophils # Seg Neutrophils # Man Lymphocytes # (Manual) Monocytes # (Manual) POC ABG pH ABG pH POC ABG pCO2 POC ABG pO2 ABG pO2 ABG HCO3 ABG Base Excess ABG Hemoglobin Oxyhemoglobin Sodium Potassium Chloride 108.1 H Carbon Dioxide BUN Creatinine 0.4 L Glucose 134 H POC Glucose 129 H 123 H Calcium 7.1 L Phosphorus Magnesium Direct Bilirubin AST Alkaline Phosphatase C-Reactive Protein Serum Total Protein Total Protein Albumin Prealbumin Nzegc-8-Ksupevwlj Skivp-1-Vxvgaxpdo Gamma Globulins PEP Interpretation Triglycerides Urine pH Urine Creatinine Urine Total Protein Vancomycin Trough Digoxin Crossmatch 10/20/19 10/20/19 10/21/19 11:40 19:06 05:08 WBC RBC Hgb Hct MCV MCH MCHC RDW Plt Count Lymph % (Auto) Iron % (Auto) Lymph # Iron # Seg Neutrophils % Seg Neuts % (Manual) Lymphocytes % (Manual) Seg Neutrophils # Seg Neutrophils # Man Lymphocytes # (Manual) Monocytes # (Manual) POC ABG pH ABG pH POC ABG pCO2 POC ABG pO2 ABG pO2 ABG HCO3 ABG Base Excess ABG Hemoglobin Oxyhemoglobin Sodium Potassium Chloride Carbon Dioxide BUN Creatinine Glucose POC Glucose 139 H 117 H 131 H Calcium Phosphorus Magnesium Direct Bilirubin AST Alkaline Phosphatase C-Reactive Protein Serum Total Protein Total Protein Albumin Prealbumin Rpvmt-0-Shomziths Korve-8-Usavcbakb Gamma Globulins PEP Interpretation Triglycerides Urine pH Urine Creatinine Urine Total Protein Vancomycin Trough Digoxin Crossmatch 10/21/19 10/21/19 10/21/19 05:30 12:04 17:31 WBC RBC Hgb Hct MCV MCH MCHC RDW Plt Count Lymph % (Auto) Iron % (Auto) Lymph # Iron # Seg Neutrophils % Seg Neuts % (Manual) Lymphocytes % (Manual) Seg Neutrophils # Seg Neutrophils # Man Lymphocytes # (Manual) Monocytes # (Manual) POC ABG pH ABG pH POC ABG pCO2 POC ABG pO2 ABG pO2 ABG HCO3 ABG Base Excess ABG Hemoglobin Oxyhemoglobin Sodium Potassium Chloride 107.8 H Carbon Dioxide BUN Creatinine 0.5 L Glucose 119 H POC Glucose 119 H 110 H Calcium 7.6 L Phosphorus Magnesium Direct Bilirubin AST Alkaline Phosphatase C-Reactive Protein Serum Total Protein Total Protein Albumin Prealbumin Ylmfy-2-Oegnaayvx Fjoyu-2-Ucuazpsak Gamma Globulins PEP Interpretation Triglycerides Urine pH Urine Creatinine Urine Total Protein Vancomycin Trough Digoxin Crossmatch 10/22/19 10/22/19 10/22/19 05:14 05:37 12:07 WBC RBC Hgb Hct MCV MCH MCHC RDW Plt Count Lymph % (Auto) Iron % (Auto) Lymph # Iron # Seg Neutrophils % Seg Neuts % (Manual) Lymphocytes % (Manual) Seg Neutrophils # Seg Neutrophils # Man Lymphocytes # (Manual) Monocytes # (Manual) POC ABG pH ABG pH POC ABG pCO2 POC ABG pO2 ABG pO2 ABG HCO3 ABG Base Excess ABG Hemoglobin Oxyhemoglobin Sodium Potassium Chloride Carbon Dioxide BUN Creatinine 0.5 L Glucose 116 H POC Glucose 110 H 126 H Calcium 7.7 L Phosphorus Magnesium Direct Bilirubin AST Alkaline Phosphatase C-Reactive Protein Serum Total Protein Total Protein Albumin Prealbumin Udard-5-Mklpuehwo Nnfod-0-Hdcxckbxo Gamma Globulins PEP Interpretation Triglycerides Urine pH Urine Creatinine Urine Total Protein Vancomycin Trough Digoxin Crossmatch 10/22/19 10/22/19 10/23/19 18:36 23:19 04:39 WBC RBC Hgb Hct MCV MCH MCHC RDW Plt Count Lymph % (Auto) Iron % (Auto) Lymph # Iron # Seg Neutrophils % Seg Neuts % (Manual) Lymphocytes % (Manual) Seg Neutrophils # Seg Neutrophils # Man Lymphocytes # (Manual) Monocytes # (Manual) POC ABG pH ABG pH POC ABG pCO2 POC ABG pO2 ABG pO2 ABG HCO3 ABG Base Excess ABG Hemoglobin Oxyhemoglobin Sodium Potassium Chloride Carbon Dioxide BUN Creatinine Glucose POC Glucose 120 H 127 H 112 H Calcium Phosphorus Magnesium Direct Bilirubin AST Alkaline Phosphatase C-Reactive Protein Serum Total Protein Total Protein Albumin Prealbumin Qdgmv-7-Cmifhcaiu Goskr-8-Gwuoodtpg Gamma Globulins PEP Interpretation Triglycerides Urine pH Urine Creatinine Urine Total Protein Vancomycin Trough Digoxin Crossmatch 10/23/19 10/23/19 10/23/19 04:47 05:15 10:44 WBC 18.3 H RBC 2.33 L Hgb 7.0 L Hct 21.5 L MCV MCH MCHC RDW 16.2 H Plt Count Lymph % (Auto) 4.9 L Iron % (Auto) 8.1 H Lymph # 0.9 L Iron # 1.5 H Seg Neutrophils % 86.7 H Seg Neuts % (Manual) Lymphocytes % (Manual) Seg Neutrophils # 15.9 H Seg Neutrophils # Man Lymphocytes # (Manual) Monocytes # (Manual) POC ABG pH ABG pH POC ABG pCO2 POC ABG pO2 ABG pO2 68.9 L ABG HCO3 28.7 H ABG Base Excess 3.4 H ABG Hemoglobin 6.6 L Oxyhemoglobin 94.1 L Sodium Potassium Chloride Carbon Dioxide BUN Creatinine 0.5 L Glucose 165 H POC Glucose Calcium 7.4 L Phosphorus Magnesium Direct Bilirubin AST Alkaline Phosphatase C-Reactive Protein Serum Total Protein Total Protein Albumin Prealbumin Bduiz-1-Oopbajvkd Dgvdb-7-Wepwycxpl Gamma Globulins PEP Interpretation Triglycerides Urine pH Urine Creatinine Urine Total Protein Vancomycin Trough Digoxin Crossmatch 10/23/19 10/23/19 10/23/19 10:44 11:46 11:50 WBC RBC Hgb Hct MCV MCH MCHC RDW Plt Count Lymph % (Auto) Iron % (Auto) Lymph # Iron # Seg Neutrophils % Seg Neuts % (Manual) Lymphocytes % (Manual) Seg Neutrophils # Seg Neutrophils # Man Lymphocytes # (Manual) Monocytes # (Manual) POC ABG pH ABG pH POC ABG pCO2 POC ABG pO2 ABG pO2 ABG HCO3 ABG Base Excess ABG Hemoglobin Oxyhemoglobin Sodium Potassium Chloride Carbon Dioxide BUN Creatinine Glucose POC Glucose 138 H Calcium Phosphorus Magnesium Direct Bilirubin 0.7 H AST Alkaline Phosphatase C-Reactive Protein Serum Total Protein Total Protein 4.5 L Albumin 1.2 L Prealbumin Kybdy-5-Zesgeehsj Rhlvz-4-Dhdtlvysq Gamma Globulins PEP Interpretation Triglycerides Urine pH Urine Creatinine Urine Total Protein Vancomycin Trough Digoxin Crossmatch See Detail 10/23/19 10/24/19 10/24/19 17:53 00:07 05:05 WBC RBC Hgb Hct MCV MCH MCHC RDW Plt Count Lymph % (Auto) Iron % (Auto) Lymph # Iron # Seg Neutrophils % Seg Neuts % (Manual) Lymphocytes % (Manual) Seg Neutrophils # Seg Neutrophils # Man Lymphocytes # (Manual) Monocytes # (Manual) POC ABG pH ABG pH POC ABG pCO2 POC ABG pO2 ABG pO2 ABG HCO3 ABG Base Excess ABG Hemoglobin Oxyhemoglobin Sodium Potassium 3.5 L Chloride Carbon Dioxide BUN Creatinine 0.5 L Glucose 116 H POC Glucose 137 H 110 H Calcium 8.0 L Phosphorus Magnesium Direct Bilirubin AST Alkaline Phosphatase C-Reactive Protein Serum Total Protein Total Protein Albumin Prealbumin Juryz-5-Kkhknneel Ipmty-1-Vzuqlphxm Gamma Globulins PEP Interpretation Triglycerides Urine pH Urine Creatinine Urine Total Protein Vancomycin Trough Digoxin Crossmatch 10/24/19 10/24/19 10/24/19 05:05 11:56 13:00 WBC 13.0 H RBC 2.73 L Hgb 8.0 L Hct 24.2 L MCV MCH MCHC RDW 17.9 H Plt Count Lymph % (Auto) 7.0 L Iron % (Auto) 9.5 H Lymph # 0.9 L Iron # 1.2 H Seg Neutrophils % 82.7 H Seg Neuts % (Manual) Lymphocytes % (Manual) Seg Neutrophils # 10.7 H Seg Neutrophils # Man Lymphocytes # (Manual) Monocytes # (Manual) POC ABG pH ABG pH POC ABG pCO2 POC ABG pO2 ABG pO2 ABG HCO3 ABG Base Excess ABG Hemoglobin Oxyhemoglobin Sodium Potassium Chloride Carbon Dioxide BUN Creatinine Glucose POC Glucose 159 H Calcium Phosphorus Magnesium Direct Bilirubin AST Alkaline Phosphatase C-Reactive Protein Serum Total Protein Total Protein Albumin Prealbumin Jviwa-9-Fbhgqfhud Cordu-9-Wxyjvmfri Gamma Globulins PEP Interpretation Triglycerides 216 H Urine pH Urine Creatinine Urine Total Protein Vancomycin Trough Digoxin Crossmatch 10/24/19 10/24/19 10/25/19 17:42 23:45 04:19 WBC RBC Hgb Hct MCV MCH MCHC RDW Plt Count Lymph % (Auto) Iron % (Auto) Lymph # Iron # Seg Neutrophils % Seg Neuts % (Manual) Lymphocytes % (Manual) Seg Neutrophils # Seg Neutrophils # Man Lymphocytes # (Manual) Monocytes # (Manual) POC ABG pH ABG pH POC ABG pCO2 POC ABG pO2 ABG pO2 ABG HCO3 ABG Base Excess ABG Hemoglobin Oxyhemoglobin Sodium 147 H Potassium Chloride Carbon Dioxide 33 H BUN Creatinine 0.5 L Glucose 111 H POC Glucose 120 H 116 H Calcium Phosphorus Magnesium Direct Bilirubin AST Alkaline Phosphatase C-Reactive Protein Serum Total Protein Total Protein 5.7 L D Albumin 2.5 L Prealbumin Amuhi-6-Tyhsvmydl Flzjw-9-Cutrdojiv Gamma Globulins PEP Interpretation Triglycerides 230 H Urine pH Urine Creatinine Urine Total Protein Vancomycin Trough Digoxin Crossmatch 10/25/19 10/25/19 10/25/19 04:19 05:31 12:20 WBC RBC 2.69 L Hgb 8.1 L Hct 23.9 L MCV MCH MCHC RDW 17.3 H Plt Count Lymph % (Auto) Iron % (Auto) Lymph # Iron # Seg Neutrophils % Seg Neuts % (Manual) Lymphocytes % (Manual) Seg Neutrophils # Seg Neutrophils # Man Lymphocytes # (Manual) Monocytes # (Manual) POC ABG pH ABG pH POC ABG pCO2 POC ABG pO2 ABG pO2 ABG HCO3 ABG Base Excess ABG Hemoglobin Oxyhemoglobin Sodium Potassium Chloride Carbon Dioxide BUN Creatinine Glucose POC Glucose 126 H 114 H Calcium Phosphorus Magnesium Direct Bilirubin AST Alkaline Phosphatase C-Reactive Protein Serum Total Protein Total Protein Albumin Prealbumin Kpwbj-6-Cfnpormmp Pznho-8-Xusmbtjel Gamma Globulins PEP Interpretation Triglycerides Urine pH Urine Creatinine Urine Total Protein Vancomycin Trough Digoxin Crossmatch 10/25/19 10/25/19 10/26/19 18:30 23:09 06:15 WBC RBC Hgb Hct MCV MCH MCHC RDW Plt Count Lymph % (Auto) Iron % (Auto) Lymph # Iron # Seg Neutrophils % Seg Neuts % (Manual) Lymphocytes % (Manual) Seg Neutrophils # Seg Neutrophils # Man Lymphocytes # (Manual) Monocytes # (Manual) POC ABG pH ABG pH POC ABG pCO2 POC ABG pO2 ABG pO2 ABG HCO3 ABG Base Excess ABG Hemoglobin Oxyhemoglobin Sodium Potassium 3.5 L Chloride Carbon Dioxide BUN Creatinine 0.5 L Glucose 112 H POC Glucose 121 H 107 H Calcium 8.3 L Phosphorus Magnesium Direct Bilirubin AST Alkaline Phosphatase 148 H C-Reactive Protein Serum Total Protein Total Protein 5.9 L Albumin 2.4 L Prealbumin Eewxs-5-Wwlrxkmbe Chwxd-8-Htwbqcsmf Gamma Globulins PEP Interpretation Triglycerides Urine pH Urine Creatinine Urine Total Protein Vancomycin Trough Digoxin Crossmatch 10/26/19 10/26/19 10/26/19 06:15 12:21 17:35 WBC RBC Hgb Hct MCV MCH MCHC RDW Plt Count Lymph % (Auto) Iron % (Auto) Lymph # Iron # Seg Neutrophils % Seg Neuts % (Manual) Lymphocytes % (Manual) Seg Neutrophils # Seg Neutrophils # Man Lymphocytes # (Manual) Monocytes # (Manual) POC ABG pH ABG pH POC ABG pCO2 POC ABG pO2 ABG pO2 ABG HCO3 ABG Base Excess ABG Hemoglobin Oxyhemoglobin Sodium Potassium Chloride Carbon Dioxide BUN Creatinine Glucose POC Glucose 134 H 141 H Calcium Phosphorus Magnesium Direct Bilirubin AST Alkaline Phosphatase C-Reactive Protein Serum Total Protein Total Protein Albumin Prealbumin Sqtui-9-Ubhywoikb Hqdtk-1-Oyqzslmes Gamma Globulins PEP Interpretation Triglycerides 185 H Urine pH Urine Creatinine Urine Total Protein Vancomycin Trough Digoxin Crossmatch 10/26/19 10/27/19 10/27/19 Unknown 04:30 11:33 WBC RBC Hgb Hct MCV MCH MCHC RDW Plt Count Lymph % (Auto) Iron % (Auto) Lymph # Iron # Seg Neutrophils % Seg Neuts % (Manual) Lymphocytes % (Manual) Seg Neutrophils # Seg Neutrophils # Man Lymphocytes # (Manual) Monocytes # (Manual) POC ABG pH ABG pH POC ABG pCO2 POC ABG pO2 ABG pO2 ABG HCO3 ABG Base Excess ABG Hemoglobin Oxyhemoglobin Sodium Potassium 3.2 L Chloride Carbon Dioxide BUN 23 H Creatinine 0.6 L Glucose 130 H POC Glucose 131 H Calcium 7.9 L Phosphorus Magnesium Direct Bilirubin AST Alkaline Phosphatase C-Reactive Protein Serum Total Protein Total Protein Albumin Prealbumin Osyqq-9-Ardfjefjf Bgyzl-9-Xtwfgbawd Gamma Globulins PEP Interpretation Triglycerides Urine pH 9.0 H Urine Creatinine Urine Total Protein Vancomycin Trough Digoxin Crossmatch 10/27/19 10/28/19 10/28/19 17:45 05:25 05:49 WBC RBC 2.85 L Hgb 8.3 L Hct 26.8 L MCV MCH MCHC 31 L RDW 17.4 H Plt Count Lymph % (Auto) 8.9 L Iron % (Auto) 14.3 H Lymph # 0.8 L Iron # 1.3 H Seg Neutrophils % 76.5 H Seg Neuts % (Manual) Lymphocytes % (Manual) Seg Neutrophils # Seg Neutrophils # Man Lymphocytes # (Manual) Monocytes # (Manual) POC ABG pH ABG pH POC ABG pCO2 POC ABG pO2 ABG pO2 ABG HCO3 ABG Base Excess ABG Hemoglobin Oxyhemoglobin Sodium Potassium Chloride Carbon Dioxide BUN Creatinine Glucose POC Glucose 121 H 120 H Calcium Phosphorus Magnesium Direct Bilirubin AST Alkaline Phosphatase C-Reactive Protein Serum Total Protein Total Protein Albumin Prealbumin Ennsh-3-Fmqazrbxh Onges-2-Pimzozqpz Gamma Globulins PEP Interpretation Triglycerides Urine pH Urine Creatinine Urine Total Protein Vancomycin Trough Digoxin Crossmatch 10/28/19 10/28/19 10/28/19 07:19 12:07 18:21 WBC RBC Hgb Hct MCV MCH MCHC RDW Plt Count Lymph % (Auto) Iron % (Auto) Lymph # Iron # Seg Neutrophils % Seg Neuts % (Manual) Lymphocytes % (Manual) Seg Neutrophils # Seg Neutrophils # Man Lymphocytes # (Manual) Monocytes # (Manual) POC ABG pH ABG pH POC ABG pCO2 POC ABG pO2 ABG pO2 ABG HCO3 ABG Base Excess ABG Hemoglobin Oxyhemoglobin Sodium Potassium Chloride Carbon Dioxide BUN 23 H Creatinine 0.5 L Glucose 129 H POC Glucose 127 H 130 H Calcium 8.0 L Phosphorus Magnesium Direct Bilirubin AST Alkaline Phosphatase C-Reactive Protein Serum Total Protein Total Protein Albumin Prealbumin Zlpor-0-Ighzcvvtk Pdlmy-4-Dcxkhqark Gamma Globulins PEP Interpretation Triglycerides Urine pH Urine Creatinine Urine Total Protein Vancomycin Trough Digoxin Crossmatch 10/28/19 10/29/19 10/29/19 23:30 05:30 05:30 WBC 11.2 H RBC 3.36 L Hgb 9.7 L Hct 29.4 L MCV MCH MCHC RDW 16.7 H Plt Count Lymph % (Auto) Iron % (Auto) 16.0 H Lymph # Iron # 1.8 H Seg Neutrophils % 70.2 H Seg Neuts % (Manual) Lymphocytes % (Manual) Seg Neutrophils # 7.9 H Seg Neutrophils # Man Lymphocytes # (Manual) Monocytes # (Manual) POC ABG pH ABG pH POC ABG pCO2 POC ABG pO2 ABG pO2 ABG HCO3 ABG Base Excess ABG Hemoglobin Oxyhemoglobin Sodium Potassium Chloride Carbon Dioxide BUN 23 H Creatinine 0.5 L Glucose POC Glucose 130 H Calcium 8.3 L Phosphorus Magnesium Direct Bilirubin AST Alkaline Phosphatase C-Reactive Protein Serum Total Protein Total Protein Albumin Prealbumin Ajmqa-3-Hravpzwwz Fhahw-9-Gywkqjnsu Gamma Globulins PEP Interpretation Triglycerides Urine pH Urine Creatinine Urine Total Protein Vancomycin Trough Digoxin Crossmatch 10/29/19 10/29/19 10/29/19 05:52 13:10 18:02 WBC RBC Hgb Hct MCV MCH MCHC RDW Plt Count Lymph % (Auto) Iron % (Auto) Lymph # Iron # Seg Neutrophils % Seg Neuts % (Manual) Lymphocytes % (Manual) Seg Neutrophils # Seg Neutrophils # Man Lymphocytes # (Manual) Monocytes # (Manual) POC ABG pH ABG pH POC ABG pCO2 POC ABG pO2 ABG pO2 ABG HCO3 ABG Base Excess ABG Hemoglobin Oxyhemoglobin Sodium Potassium Chloride Carbon Dioxide BUN Creatinine Glucose POC Glucose 111 H 140 H 140 H Calcium Phosphorus Magnesium Direct Bilirubin AST Alkaline Phosphatase C-Reactive Protein Serum Total Protein Total Protein Albumin Prealbumin Wyiut-1-Egoimdmrq Eksno-7-Aqxshyjhv Gamma Globulins PEP Interpretation Triglycerides Urine pH Urine Creatinine Urine Total Protein Vancomycin Trough Digoxin Crossmatch 10/29/19 10/30/19 10/30/19 23:58 01:05 05:15 WBC RBC Hgb Hct MCV MCH MCHC RDW Plt Count Lymph % (Auto) Iron % (Auto) Lymph # Iron # Seg Neutrophils % Seg Neuts % (Manual) Lymphocytes % (Manual) Seg Neutrophils # Seg Neutrophils # Man Lymphocytes # (Manual) Monocytes # (Manual) POC ABG pH ABG pH POC ABG pCO2 62.0 H POC ABG pO2 168 H ABG pO2 ABG HCO3 ABG Base Excess ABG Hemoglobin Oxyhemoglobin Sodium 147 H Potassium Chloride 107.8 H Carbon Dioxide BUN 26 H Creatinine 0.5 L Glucose 139 H POC Glucose 161 H Calcium Phosphorus Magnesium 2.40 H Direct Bilirubin AST Alkaline Phosphatase C-Reactive Protein Serum Total Protein Total Protein Albumin Prealbumin Fvjws-6-Atqedyjqa Qlejl-0-Uwuughomg Gamma Globulins PEP Interpretation Triglycerides Urine pH Urine Creatinine Urine Total Protein Vancomycin Trough Digoxin Crossmatch 10/30/19 10/30/19 10/30/19 05:15 06:32 09:44 WBC 13.8 H RBC 3.59 L Hgb 10.1 L Hct 32.4 L MCV MCH MCHC 31 L RDW 17.4 H Plt Count Lymph % (Auto) 11.2 L Iron % (Auto) 13.6 H Lymph # Iron # 1.9 H Seg Neutrophils % 75.1 H Seg Neuts % (Manual) Lymphocytes % (Manual) Seg Neutrophils # 10.4 H Seg Neutrophils # Man Lymphocytes # (Manual) Monocytes # (Manual) POC ABG pH ABG pH POC ABG pCO2 51.7 H POC ABG pO2 111 H ABG pO2 ABG HCO3 ABG Base Excess ABG Hemoglobin Oxyhemoglobin Sodium Potassium Chloride Carbon Dioxide BUN Creatinine Glucose POC Glucose 141 H Calcium Phosphorus Magnesium Direct Bilirubin AST Alkaline Phosphatase C-Reactive Protein Serum Total Protein Total Protein Albumin Prealbumin Zmctx-9-Kosvfpbeo Nqnmr-9-Oioulmydk Gamma Globulins PEP Interpretation Triglycerides Urine pH Urine Creatinine Urine Total Protein Vancomycin Trough Digoxin Crossmatch 10/30/19 10/31/19 10/31/19 18:10 04:18 04:18 WBC 11.7 H RBC 3.11 L Hgb 9.0 L Hct 27.9 L MCV MCH MCHC RDW 17.1 H Plt Count Lymph % (Auto) Iron % (Auto) Lymph # Iron # Seg Neutrophils % Seg Neuts % (Manual) Lymphocytes % (Manual) Seg Neutrophils # Seg Neutrophils # Man Lymphocytes # (Manual) Monocytes # (Manual) POC ABG pH ABG pH POC ABG pCO2 POC ABG pO2 ABG pO2 ABG HCO3 ABG Base Excess ABG Hemoglobin Oxyhemoglobin Sodium 148 H Potassium Chloride 108.7 H Carbon Dioxide BUN 37 H Creatinine 0.7 L Glucose 102 H POC Glucose 131 H Calcium Phosphorus Magnesium Direct Bilirubin AST Alkaline Phosphatase C-Reactive Protein Serum Total Protein Total Protein Albumin Prealbumin Nlvjz-0-Aibevvzdm Bgqrm-1-Ojtlbfpnm Gamma Globulins PEP Interpretation Triglycerides Urine pH Urine Creatinine Urine Total Protein Vancomycin Trough Digoxin Crossmatch 10/31/19 10/31/19 10/31/19 11:32 12:55 18:10 WBC RBC Hgb Hct MCV MCH MCHC RDW Plt Count Lymph % (Auto) Iron % (Auto) Lymph # Iron # Seg Neutrophils % Seg Neuts % (Manual) Lymphocytes % (Manual) Seg Neutrophils # Seg Neutrophils # Man Lymphocytes # (Manual) Monocytes # (Manual) POC ABG pH ABG pH POC ABG pCO2 57.9 H POC ABG pO2 135 H ABG pO2 ABG HCO3 ABG Base Excess ABG Hemoglobin Oxyhemoglobin Sodium Potassium Chloride Carbon Dioxide BUN Creatinine Glucose POC Glucose 120 H Calcium Phosphorus Magnesium Direct Bilirubin AST Alkaline Phosphatase C-Reactive Protein Serum Total Protein Total Protein Albumin Prealbumin Hjweo-5-Duzexqxtg Qyplc-6-Vpjismlfw Gamma Globulins PEP Interpretation Triglycerides Urine pH Urine Creatinine Urine Total Protein Vancomycin Trough 41.7 H Digoxin Crossmatch 10/31/19 11/01/19 11/01/19 23:08 05:30 05:30 WBC 14.6 H RBC 3.13 L Hgb 8.9 L Hct 27.7 L MCV MCH MCHC RDW 17.0 H Plt Count Lymph % (Auto) Iron % (Auto) Lymph # Iron # Seg Neutrophils % Seg Neuts % (Manual) Lymphocytes % (Manual) Seg Neutrophils # Seg Neutrophils # Man Lymphocytes # (Manual) Monocytes # (Manual) POC ABG pH ABG pH POC ABG pCO2 POC ABG pO2 ABG pO2 ABG HCO3 ABG Base Excess ABG Hemoglobin Oxyhemoglobin Sodium 149 H Potassium Chloride 109.0 H Carbon Dioxide BUN 26 H Creatinine 0.7 L Glucose 129 H POC Glucose 109 H Calcium Phosphorus Magnesium Direct Bilirubin AST Alkaline Phosphatase C-Reactive Protein Serum Total Protein Total Protein Albumin Prealbumin Eojpp-9-Rslfptjhz Nffpd-2-Xmohyuvji Gamma Globulins PEP Interpretation Triglycerides Urine pH Urine Creatinine Urine Total Protein Vancomycin Trough Digoxin Crossmatch 11/01/19 11/01/19 11/01/19 06:09 06:10 11:52 WBC RBC Hgb Hct MCV MCH MCHC RDW Plt Count Lymph % (Auto) Iron % (Auto) Lymph # Iron # Seg Neutrophils % Seg Neuts % (Manual) Lymphocytes % (Manual) Seg Neutrophils # Seg Neutrophils # Man Lymphocytes # (Manual) Monocytes # (Manual) POC ABG pH ABG pH POC ABG pCO2 51.3 H POC ABG pO2 71 L ABG pO2 ABG HCO3 ABG Base Excess ABG Hemoglobin Oxyhemoglobin Sodium Potassium Chloride Carbon Dioxide BUN Creatinine Glucose POC Glucose 113 H 106 H Calcium Phosphorus Magnesium Direct Bilirubin AST Alkaline Phosphatase C-Reactive Protein Serum Total Protein Total Protein Albumin Prealbumin Ehlrv-4-Alkffdbgv Lulos-0-Caleigbfg Gamma Globulins PEP Interpretation Triglycerides Urine pH Urine Creatinine Urine Total Protein Vancomycin Trough Digoxin Crossmatch 11/01/19 11/02/19 11/02/19 18:18 03:40 03:40 WBC RBC 2.36 L Hgb 7.2 L Hct 20.8 L D MCV MCH MCHC 35 H RDW 16.8 H Plt Count Lymph % (Auto) Iron % (Auto) Lymph # Iron # Seg Neutrophils % Seg Neuts % (Manual) Lymphocytes % (Manual) Seg Neutrophils # Seg Neutrophils # Man Lymphocytes # (Manual) Monocytes # (Manual) POC ABG pH ABG pH POC ABG pCO2 POC ABG pO2 ABG pO2 ABG HCO3 ABG Base Excess ABG Hemoglobin Oxyhemoglobin Sodium 157 H D Potassium 3.0 L D Chloride 117.2 H Carbon Dioxide BUN 23 H Creatinine 0.6 L Glucose 101 H POC Glucose 120 H Calcium 6.4 L D Phosphorus Magnesium Direct Bilirubin AST Alkaline Phosphatase C-Reactive Protein Serum Total Protein Total Protein Albumin Prealbumin Iffaa-3-Xmbfsjfsr Vwtze-8-Nwwgsjqro Gamma Globulins PEP Interpretation Triglycerides Urine pH Urine Creatinine Urine Total Protein Vancomycin Trough Digoxin Crossmatch 11/02/19 11/02/19 11/02/19 04:48 05:30 12:43 WBC RBC Hgb Hct MCV MCH MCHC RDW Plt Count Lymph % (Auto) Iron % (Auto) Lymph # Iron # Seg Neutrophils % Seg Neuts % (Manual) Lymphocytes % (Manual) Seg Neutrophils # Seg Neutrophils # Man Lymphocytes # (Manual) Monocytes # (Manual) POC ABG pH ABG pH POC ABG pCO2 50.1 H POC ABG pO2 74 L ABG pO2 ABG HCO3 ABG Base Excess ABG Hemoglobin Oxyhemoglobin Sodium 149 H D Potassium Chloride 110.0 H Carbon Dioxide BUN 23 H Creatinine 0.6 L Glucose POC Glucose 109 H Calcium 8.1 L D Phosphorus Magnesium 2.40 H Direct Bilirubin AST Alkaline Phosphatase C-Reactive Protein Serum Total Protein Total Protein Albumin Prealbumin Eqvzu-9-Qtysrrpfg Vtnht-4-Jqpuhotoa Gamma Globulins PEP Interpretation Triglycerides Urine pH Urine Creatinine Urine Total Protein Vancomycin Trough Digoxin Crossmatch 11/03/19 11/03/19 11/03/19 03:42 03:42 04:13 WBC RBC 2.93 L Hgb 8.5 L Hct 25.8 L MCV MCH MCHC RDW 16.9 H Plt Count Lymph % (Auto) Iron % (Auto) Lymph # Iron # Seg Neutrophils % Seg Neuts % (Manual) Lymphocytes % (Manual) Seg Neutrophils # Seg Neutrophils # Man Lymphocytes # (Manual) Monocytes # (Manual) POC ABG pH 7.540 H ABG pH POC ABG pCO2 POC ABG pO2 51 L ABG pO2 ABG HCO3 ABG Base Excess ABG Hemoglobin Oxyhemoglobin Sodium 147 H Potassium 3.5 L D Chloride 108.6 H Carbon Dioxide BUN Creatinine 0.6 L Glucose 109 H POC Glucose Calcium 8.3 L Phosphorus Magnesium Direct Bilirubin AST Alkaline Phosphatase C-Reactive Protein Serum Total Protein Total Protein Albumin Prealbumin Cjaqr-9-Twfnwllgn Mghem-1-Suackcclk Gamma Globulins PEP Interpretation Triglycerides Urine pH Urine Creatinine Urine Total Protein Vancomycin Trough Digoxin Crossmatch 11/03/19 11/03/19 11/03/19 04:28 12:04 23:02 WBC RBC Hgb Hct MCV MCH MCHC RDW Plt Count Lymph % (Auto) Iron % (Auto) Lymph # Iron # Seg Neutrophils % Seg Neuts % (Manual) Lymphocytes % (Manual) Seg Neutrophils # Seg Neutrophils # Man Lymphocytes # (Manual) Monocytes # (Manual) POC ABG pH ABG pH POC ABG pCO2 45.4 H POC ABG pO2 ABG pO2 ABG HCO3 ABG Base Excess ABG Hemoglobin Oxyhemoglobin Sodium Potassium Chloride Carbon Dioxide BUN Creatinine Glucose POC Glucose 109 H 111 H Calcium Phosphorus Magnesium Direct Bilirubin AST Alkaline Phosphatase C-Reactive Protein Serum Total Protein Total Protein Albumin Prealbumin Gqfys-3-Zknkstkfz Rzkwv-5-Bzqozaqja Gamma Globulins PEP Interpretation Triglycerides Urine pH Urine Creatinine Urine Total Protein Vancomycin Trough Digoxin Crossmatch 11/04/19 11/04/19 11/04/19 05:00 05:00 05:19 WBC RBC 2.96 L Hgb 8.6 L Hct 25.5 L MCV MCH MCHC RDW 16.7 H Plt Count Lymph % (Auto) Iron % (Auto) Lymph # Iron # Seg Neutrophils % Seg Neuts % (Manual) Lymphocytes % (Manual) Seg Neutrophils # Seg Neutrophils # Man Lymphocytes # (Manual) Monocytes # (Manual) POC ABG pH ABG pH POC ABG pCO2 POC ABG pO2 ABG pO2 ABG HCO3 ABG Base Excess ABG Hemoglobin Oxyhemoglobin Sodium Potassium 3.5 L Chloride Carbon Dioxide BUN Creatinine 0.5 L Glucose 111 H POC Glucose 106 H Calcium 8.1 L Phosphorus Magnesium Direct Bilirubin AST Alkaline Phosphatase C-Reactive Protein Serum Total Protein Total Protein Albumin Prealbumin Iopsb-6-Whlsdyhro Scehc-5-Cskggqitp Gamma Globulins PEP Interpretation Triglycerides Urine pH Urine Creatinine Urine Total Protein Vancomycin Trough Digoxin Crossmatch 11/04/19 11/05/19 11/05/19 12:40 00:28 04:19 WBC 12.4 H RBC 2.98 L Hgb 8.5 L Hct 25.5 L MCV MCH MCHC RDW 16.6 H Plt Count Lymph % (Auto) Iron % (Auto) Lymph # Iron # Seg Neutrophils % Seg Neuts % (Manual) Lymphocytes % (Manual) Seg Neutrophils # Seg Neutrophils # Man Lymphocytes # (Manual) Monocytes # (Manual) POC ABG pH ABG pH POC ABG pCO2 POC ABG pO2 ABG pO2 ABG HCO3 ABG Base Excess ABG Hemoglobin Oxyhemoglobin Sodium Potassium Chloride Carbon Dioxide BUN Creatinine Glucose POC Glucose 109 H 132 H Calcium Phosphorus Magnesium Direct Bilirubin AST Alkaline Phosphatase C-Reactive Protein Serum Total Protein Total Protein Albumin Prealbumin Yiafz-6-Gkfehjsjo Xtkdx-5-Ybbddnlne Gamma Globulins PEP Interpretation Triglycerides Urine pH Urine Creatinine Urine Total Protein Vancomycin Trough Digoxin Crossmatch 11/05/19 11/05/19 11/05/19 04:19 05:40 13:14 WBC RBC Hgb Hct MCV MCH MCHC RDW Plt Count Lymph % (Auto) Iron % (Auto) Lymph # Iron # Seg Neutrophils % Seg Neuts % (Manual) Lymphocytes % (Manual) Seg Neutrophils # Seg Neutrophils # Man Lymphocytes # (Manual) Monocytes # (Manual) POC ABG pH ABG pH POC ABG pCO2 POC ABG pO2 ABG pO2 ABG HCO3 ABG Base Excess ABG Hemoglobin Oxyhemoglobin Sodium Potassium 3.4 L Chloride Carbon Dioxide BUN Creatinine 0.4 L Glucose 106 H POC Glucose 136 H 145 H Calcium 8.2 L Phosphorus Magnesium Direct Bilirubin AST Alkaline Phosphatase C-Reactive Protein Serum Total Protein Total Protein Albumin Prealbumin Awmds-9-Jfxrloqmm Vzvbc-7-Lsvysqnsp Gamma Globulins PEP Interpretation Triglycerides Urine pH Urine Creatinine Urine Total Protein Vancomycin Trough Digoxin Crossmatch 11/05/19 11/05/19 11/06/19 18:29 23:42 05:00 WBC 12.2 H RBC 2.89 L Hgb 8.2 L Hct 24.9 L MCV MCH MCHC RDW 16.4 H Plt Count Lymph % (Auto) Iron % (Auto) Lymph # Iron # Seg Neutrophils % Seg Neuts % (Manual) Lymphocytes % (Manual) Seg Neutrophils # Seg Neutrophils # Man Lymphocytes # (Manual) Monocytes # (Manual) POC ABG pH ABG pH POC ABG pCO2 POC ABG pO2 ABG pO2 ABG HCO3 ABG Base Excess ABG Hemoglobin Oxyhemoglobin Sodium Potassium Chloride Carbon Dioxide BUN Creatinine Glucose POC Glucose 138 H 117 H Calcium Phosphorus Magnesium Direct Bilirubin AST Alkaline Phosphatase C-Reactive Protein Serum Total Protein Total Protein Albumin Prealbumin Uoroi-1-Pxykhzavs Mkqxn-4-Rmqtqdlej Gamma Globulins PEP Interpretation Triglycerides Urine pH Urine Creatinine Urine Total Protein Vancomycin Trough Digoxin Crossmatch 11/06/19 11/06/19 11/06/19 05:00 05:22 17:39 WBC RBC Hgb Hct MCV MCH MCHC RDW Plt Count Lymph % (Auto) Iron % (Auto) Lymph # Iron # Seg Neutrophils % Seg Neuts % (Manual) Lymphocytes % (Manual) Seg Neutrophils # Seg Neutrophils # Man Lymphocytes # (Manual) Monocytes # (Manual) POC ABG pH ABG pH POC ABG pCO2 POC ABG pO2 ABG pO2 ABG HCO3 ABG Base Excess ABG Hemoglobin Oxyhemoglobin Sodium Potassium Chloride Carbon Dioxide BUN Creatinine 0.4 L Glucose 114 H POC Glucose 121 H 110 H Calcium 8.2 L Phosphorus Magnesium Direct Bilirubin AST Alkaline Phosphatase C-Reactive Protein Serum Total Protein Total Protein Albumin Prealbumin Grgrm-8-Xoypyssyy Wpizz-5-Xyghriiif Gamma Globulins PEP Interpretation Triglycerides Urine pH Urine Creatinine Urine Total Protein Vancomycin Trough Digoxin Crossmatch 11/06/19 11/07/19 11/07/19 23:29 04:06 04:06 WBC 13.0 H RBC 2.80 L Hgb 7.9 L Hct 24.0 L MCV MCH MCHC RDW 16.5 H Plt Count Lymph % (Auto) 7.0 L Iron % (Auto) Lymph # 0.9 L Iron # Seg Neutrophils % 86.3 H Seg Neuts % (Manual) Lymphocytes % (Manual) Seg Neutrophils # 11.2 H Seg Neutrophils # Man Lymphocytes # (Manual) Monocytes # (Manual) POC ABG pH ABG pH POC ABG pCO2 POC ABG pO2 ABG pO2 ABG HCO3 ABG Base Excess ABG Hemoglobin Oxyhemoglobin Sodium Potassium Chloride Carbon Dioxide BUN Creatinine 0.4 L Glucose 110 H POC Glucose 113 H Calcium 8.2 L Phosphorus Magnesium Direct Bilirubin AST Alkaline Phosphatase C-Reactive Protein Serum Total Protein Total Protein Albumin Prealbumin Cihhi-2-Lqspyndmq Ndcnu-5-Aofjmqpbh Gamma Globulins PEP Interpretation Triglycerides Urine pH Urine Creatinine Urine Total Protein Vancomycin Trough Digoxin Crossmatch 11/07/19 11/07/19 11/07/19 05:43 12:47 18:19 WBC RBC Hgb Hct MCV MCH MCHC RDW Plt Count Lymph % (Auto) Iron % (Auto) Lymph # Iron # Seg Neutrophils % Seg Neuts % (Manual) Lymphocytes % (Manual) Seg Neutrophils # Seg Neutrophils # Man Lymphocytes # (Manual) Monocytes # (Manual) POC ABG pH ABG pH POC ABG pCO2 POC ABG pO2 ABG pO2 ABG HCO3 ABG Base Excess ABG Hemoglobin Oxyhemoglobin Sodium Potassium Chloride Carbon Dioxide BUN Creatinine Glucose POC Glucose 114 H 120 H 112 H Calcium Phosphorus Magnesium Direct Bilirubin AST Alkaline Phosphatase C-Reactive Protein Serum Total Protein Total Protein Albumin Prealbumin Sjllb-8-Tecpimhsn Zgrci-2-Stvgrmsle Gamma Globulins PEP Interpretation Triglycerides Urine pH Urine Creatinine Urine Total Protein Vancomycin Trough Digoxin Crossmatch 11/08/19 11/08/19 11/08/19 03:45 03:45 11:43 WBC 12.7 H RBC 2.82 L Hgb 7.8 L Hct 24.4 L MCV MCH MCHC RDW 16.5 H Plt Count Lymph % (Auto) 9.4 L Iron % (Auto) Lymph # Iron # 0.9 H Seg Neutrophils % 83.0 H Seg Neuts % (Manual) Lymphocytes % (Manual) Seg Neutrophils # 10.6 H Seg Neutrophils # Man Lymphocytes # (Manual) Monocytes # (Manual) POC ABG pH ABG pH POC ABG pCO2 POC ABG pO2 ABG pO2 ABG HCO3 ABG Base Excess ABG Hemoglobin Oxyhemoglobin Sodium Potassium Chloride Carbon Dioxide BUN Creatinine 0.4 L Glucose 107 H POC Glucose 118 H Calcium Phosphorus Magnesium Direct Bilirubin AST Alkaline Phosphatase C-Reactive Protein Serum Total Protein Total Protein Albumin Prealbumin Byjjl-8-Arkuufrdw Cdmsi-9-Dbupmevnm Gamma Globulins PEP Interpretation Triglycerides Urine pH Urine Creatinine Urine Total Protein Vancomycin Trough Digoxin Crossmatch 11/08/19 11/09/19 11/09/19 23:45 12:41 12:56 WBC RBC Hgb Hct MCV MCH MCHC RDW Plt Count Lymph % (Auto) Iron % (Auto) Lymph # Iron # Seg Neutrophils % Seg Neuts % (Manual) Lymphocytes % (Manual) Seg Neutrophils # Seg Neutrophils # Man Lymphocytes # (Manual) Monocytes # (Manual) POC ABG pH ABG pH POC ABG pCO2 POC ABG pO2 ABG pO2 ABG HCO3 ABG Base Excess ABG Hemoglobin Oxyhemoglobin Sodium Potassium Chloride Carbon Dioxide BUN Creatinine Glucose POC Glucose 113 H 107 H 122 H Calcium Phosphorus Magnesium Direct Bilirubin AST Alkaline Phosphatase C-Reactive Protein Serum Total Protein Total Protein Albumin Prealbumin Fmllw-5-Ydseyrvmo Hvsga-4-Vpnjltmxq Gamma Globulins PEP Interpretation Triglycerides Urine pH Urine Creatinine Urine Total Protein Vancomycin Trough Digoxin Crossmatch 11/10/19 11/10/19 11/11/19 05:12 12:20 12:13 WBC RBC Hgb Hct MCV MCH MCHC RDW Plt Count Lymph % (Auto) Iron % (Auto) Lymph # Iron # Seg Neutrophils % Seg Neuts % (Manual) Lymphocytes % (Manual) Seg Neutrophils # Seg Neutrophils # Man Lymphocytes # (Manual) Monocytes # (Manual) POC ABG pH ABG pH POC ABG pCO2 POC ABG pO2 ABG pO2 ABG HCO3 ABG Base Excess ABG Hemoglobin Oxyhemoglobin Sodium Potassium Chloride Carbon Dioxide BUN Creatinine Glucose POC Glucose 127 H 125 H 107 H Calcium Phosphorus Magnesium Direct Bilirubin AST Alkaline Phosphatase C-Reactive Protein Serum Total Protein Total Protein Albumin Prealbumin Hpzgt-1-Ipgmokdqz Danpd-6-Hqwmqtfmd Gamma Globulins PEP Interpretation Triglycerides Urine pH Urine Creatinine Urine Total Protein Vancomycin Trough Digoxin Crossmatch 11/11/19 11/11/19 11/12/19 17:29 22:20 06:00 WBC RBC 2.77 L Hgb 7.8 L Hct 23.4 L MCV MCH MCHC RDW 16.6 H Plt Count Lymph % (Auto) 11.9 L Iron % (Auto) 8.9 H Lymph # Iron # 0.9 H Seg Neutrophils % 78.2 H Seg Neuts % (Manual) Lymphocytes % (Manual) Seg Neutrophils # 8.2 H Seg Neutrophils # Man Lymphocytes # (Manual) Monocytes # (Manual) POC ABG pH ABG pH POC ABG pCO2 POC ABG pO2 ABG pO2 ABG HCO3 ABG Base Excess ABG Hemoglobin Oxyhemoglobin Sodium Potassium Chloride Carbon Dioxide BUN Creatinine Glucose POC Glucose 120 H 109 H Calcium Phosphorus Magnesium Direct Bilirubin AST Alkaline Phosphatase C-Reactive Protein Serum Total Protein Total Protein Albumin Prealbumin Nowwb-9-Tsgqnreuw Mxsyc-1-Eggvbhhad Gamma Globulins PEP Interpretation Triglycerides Urine pH Urine Creatinine Urine Total Protein Vancomycin Trough Digoxin Crossmatch 11/12/19 11/12/19 11/12/19 07:52 11:58 23:44 WBC RBC Hgb Hct MCV MCH MCHC RDW Plt Count Lymph % (Auto) Iron % (Auto) Lymph # Iron # Seg Neutrophils % Seg Neuts % (Manual) Lymphocytes % (Manual) Seg Neutrophils # Seg Neutrophils # Man Lymphocytes # (Manual) Monocytes # (Manual) POC ABG pH ABG pH POC ABG pCO2 POC ABG pO2 ABG pO2 ABG HCO3 ABG Base Excess ABG Hemoglobin Oxyhemoglobin Sodium Potassium Chloride Carbon Dioxide BUN Creatinine Glucose POC Glucose 120 H 140 H 116 H Calcium Phosphorus Magnesium Direct Bilirubin AST Alkaline Phosphatase C-Reactive Protein Serum Total Protein Total Protein Albumin Prealbumin Evpik-6-Dbdrznxjp Itvoy-0-Kstuzxdpg Gamma Globulins PEP Interpretation Triglycerides Urine pH Urine Creatinine Urine Total Protein Vancomycin Trough Digoxin Crossmatch 11/13/19 11/13/19 11/13/19 04:33 04:33 13:43 WBC 11.2 H RBC 2.90 L Hgb 8.1 L Hct 24.5 L MCV MCH MCHC RDW 16.5 H Plt Count Lymph % (Auto) 10.1 L Iron % (Auto) 7.6 H Lymph # 1.1 L Iron # 0.9 H Seg Neutrophils % 81.1 H Seg Neuts % (Manual) Lymphocytes % (Manual) Seg Neutrophils # 9.1 H Seg Neutrophils # Man Lymphocytes # (Manual) Monocytes # (Manual) POC ABG pH ABG pH POC ABG pCO2 POC ABG pO2 ABG pO2 ABG HCO3 ABG Base Excess ABG Hemoglobin Oxyhemoglobin Sodium 135 L Potassium Chloride 91.9 L Carbon Dioxide BUN Creatinine 0.6 L Glucose POC Glucose 122 H Calcium Phosphorus Magnesium Direct Bilirubin AST Alkaline Phosphatase C-Reactive Protein Serum Total Protein Total Protein Albumin Prealbumin Jadal-9-Wdzfvnpsw Ipmuc-9-Cfxnmyaje Gamma Globulins PEP Interpretation Triglycerides Urine pH Urine Creatinine Urine Total Protein Vancomycin Trough Digoxin Crossmatch 11/13/19 11/14/19 11/15/19 17:57 12:35 07:10 WBC 14.8 H RBC 2.89 L Hgb 7.8 L Hct 24.2 L MCV MCH 27 L MCHC RDW 16.9 H Plt Count Lymph % (Auto) Iron % (Auto) Lymph # Iron # Seg Neutrophils % Seg Neuts % (Manual) Lymphocytes % (Manual) Seg Neutrophils # Seg Neutrophils # Man Lymphocytes # (Manual) Monocytes # (Manual) POC ABG pH ABG pH POC ABG pCO2 POC ABG pO2 ABG pO2 ABG HCO3 ABG Base Excess ABG Hemoglobin Oxyhemoglobin Sodium Potassium Chloride Carbon Dioxide BUN Creatinine Glucose POC Glucose 127 H 148 H Calcium Phosphorus Magnesium Direct Bilirubin AST Alkaline Phosphatase C-Reactive Protein Serum Total Protein Total Protein Albumin Prealbumin Qpyaq-4-Jqmnfknkk Femrx-5-Udqwwpuwp Gamma Globulins PEP Interpretation Triglycerides Urine pH Urine Creatinine Urine Total Protein Vancomycin Trough Digoxin Crossmatch 11/15/19 11/15/19 11/16/19 07:10 20:16 10:26 WBC 14.4 H RBC 2.79 L Hgb 7.6 L Hct 23.5 L MCV MCH 27 L MCHC RDW 17.0 H Plt Count Lymph % (Auto) Iron % (Auto) Lymph # Iron # Seg Neutrophils % Seg Neuts % (Manual) Lymphocytes % (Manual) Seg Neutrophils # Seg Neutrophils # Man Lymphocytes # (Manual) Monocytes # (Manual) POC ABG pH ABG pH POC ABG pCO2 POC ABG pO2 ABG pO2 ABG HCO3 ABG Base Excess ABG Hemoglobin Oxyhemoglobin Sodium 133 L 136 L Potassium 3.5 L Chloride 93.7 L 97.4 L Carbon Dioxide BUN Creatinine 0.6 L 0.6 L Glucose 130 H POC Glucose Calcium Phosphorus Magnesium Direct Bilirubin AST Alkaline Phosphatase C-Reactive Protein Serum Total Protein Total Protein Albumin Prealbumin Bjtkz-2-Lpzzkqfcq Ikpch-5-Jygdxqtfk Gamma Globulins PEP Interpretation Triglycerides Urine pH Urine Creatinine Urine Total Protein Vancomycin Trough Digoxin Crossmatch 11/16/19 11/17/19 11/17/19 13:01 00:40 07:22 WBC 14.0 H RBC 2.71 L Hgb 7.4 L Hct 22.8 L MCV MCH 27 L MCHC RDW 17.2 H Plt Count Lymph % (Auto) Iron % (Auto) Lymph # Iron # Seg Neutrophils % Seg Neuts % (Manual) Lymphocytes % (Manual) Seg Neutrophils # Seg Neutrophils # Man Lymphocytes # (Manual) Monocytes # (Manual) POC ABG pH ABG pH POC ABG pCO2 POC ABG pO2 ABG pO2 ABG HCO3 ABG Base Excess ABG Hemoglobin Oxyhemoglobin Sodium Potassium Chloride Carbon Dioxide BUN Creatinine Glucose POC Glucose 117 H 124 H Calcium Phosphorus Magnesium Direct Bilirubin AST Alkaline Phosphatase C-Reactive Protein Serum Total Protein Total Protein Albumin Prealbumin Dyxva-6-Mciatkpey Sijmd-8-Fbvgedzbv Gamma Globulins PEP Interpretation Triglycerides Urine pH Urine Creatinine Urine Total Protein Vancomycin Trough Digoxin Crossmatch 11/17/19 11/17/19 11/17/19 07:22 12:00 17:57 WBC RBC Hgb Hct MCV MCH MCHC RDW Plt Count Lymph % (Auto) Iron % (Auto) Lymph # Iron # Seg Neutrophils % Seg Neuts % (Manual) Lymphocytes % (Manual) Seg Neutrophils # Seg Neutrophils # Man Lymphocytes # (Manual) Monocytes # (Manual) POC ABG pH ABG pH POC ABG pCO2 POC ABG pO2 ABG pO2 ABG HCO3 ABG Base Excess ABG Hemoglobin Oxyhemoglobin Sodium 136 L Potassium Chloride 96.1 L Carbon Dioxide BUN 7 L Creatinine 0.5 L Glucose POC Glucose 130 H 111 H Calcium Phosphorus Magnesium Direct Bilirubin AST Alkaline Phosphatase C-Reactive Protein Serum Total Protein Total Protein Albumin Prealbumin Pzgqo-2-Ikhtcqxbj Jjqjp-4-Wezwxqbnx Gamma Globulins PEP Interpretation Triglycerides Urine pH Urine Creatinine Urine Total Protein Vancomycin Trough Digoxin Crossmatch 11/18/19 11/18/19 11/18/19 06:03 12:12 17:54 WBC RBC Hgb Hct MCV MCH MCHC RDW Plt Count Lymph % (Auto) Iron % (Auto) Lymph # Iron # Seg Neutrophils % Seg Neuts % (Manual) Lymphocytes % (Manual) Seg Neutrophils # Seg Neutrophils # Man Lymphocytes # (Manual) Monocytes # (Manual) POC ABG pH ABG pH POC ABG pCO2 POC ABG pO2 ABG pO2 ABG HCO3 ABG Base Excess ABG Hemoglobin Oxyhemoglobin Sodium Potassium Chloride Carbon Dioxide BUN Creatinine Glucose POC Glucose 113 H 124 H 128 H Calcium Phosphorus Magnesium Direct Bilirubin AST Alkaline Phosphatase C-Reactive Protein Serum Total Protein Total Protein Albumin Prealbumin Gehdd-7-Vlrvifycf Bdxvu-5-Rzfmmcdan Gamma Globulins PEP Interpretation Triglycerides Urine pH Urine Creatinine Urine Total Protein Vancomycin Trough Digoxin Crossmatch 11/19/19 11/19/19 11/20/19 00:54 08:03 11:31 WBC RBC Hgb Hct MCV MCH MCHC RDW Plt Count Lymph % (Auto) Iron % (Auto) Lymph # Iron # Seg Neutrophils % Seg Neuts % (Manual) Lymphocytes % (Manual) Seg Neutrophils # Seg Neutrophils # Man Lymphocytes # (Manual) Monocytes # (Manual) POC ABG pH ABG pH POC ABG pCO2 POC ABG pO2 ABG pO2 ABG HCO3 ABG Base Excess ABG Hemoglobin Oxyhemoglobin Sodium Potassium Chloride Carbon Dioxide BUN Creatinine Glucose POC Glucose 130 H 122 H 136 H Calcium Phosphorus Magnesium Direct Bilirubin AST Alkaline Phosphatase C-Reactive Protein Serum Total Protein Total Protein Albumin Prealbumin Qijhp-4-Lmnkhndjq Mchgn-6-Ulfherzca Gamma Globulins PEP Interpretation Triglycerides Urine pH Urine Creatinine Urine Total Protein Vancomycin Trough Digoxin Crossmatch 11/20/19 11/20/19 11/20/19 17:17 Unknown Unknown WBC 17.8 H RBC 2.70 L Hgb 7.3 L Hct 22.5 L MCV 83 L MCH 27 L MCHC RDW 17.0 H Plt Count Lymph % (Auto) Iron % (Auto) Lymph # Iron # Seg Neutrophils % Seg Neuts % (Manual) Lymphocytes % (Manual) Seg Neutrophils # Seg Neutrophils # Man Lymphocytes # (Manual) Monocytes # (Manual) POC ABG pH ABG pH POC ABG pCO2 POC ABG pO2 ABG pO2 ABG HCO3 ABG Base Excess ABG Hemoglobin Oxyhemoglobin Sodium 132 L Potassium 3.5 L Chloride 95.4 L Carbon Dioxide 21 L BUN Creatinine 0.6 L Glucose 108 H POC Glucose 126 H Calcium Phosphorus Magnesium Direct Bilirubin AST Alkaline Phosphatase C-Reactive Protein Serum Total Protein Total Protein Albumin Prealbumin Swscy-1-Jyrjllnnj Ewhpz-8-Yyophwesz Gamma Globulins PEP Interpretation Triglycerides Urine pH Urine Creatinine Urine Total Protein Vancomycin Trough Digoxin Crossmatch 11/21/19 11/21/19 11/21/19 07:40 07:40 12:29 WBC 15.1 H RBC 2.61 L Hgb 7.0 L Hct 21.5 L MCV 82 L MCH 27 L MCHC RDW 17.0 H Plt Count Lymph % (Auto) 9.0 L Iron % (Auto) 7.7 H Lymph # Iron # 1.2 H Seg Neutrophils % 81.5 H Seg Neuts % (Manual) Lymphocytes % (Manual) Seg Neutrophils # 12.3 H Seg Neutrophils # Man Lymphocytes # (Manual) Monocytes # (Manual) POC ABG pH ABG pH POC ABG pCO2 POC ABG pO2 ABG pO2 ABG HCO3 ABG Base Excess ABG Hemoglobin Oxyhemoglobin Sodium Potassium Chloride Carbon Dioxide BUN Creatinine 0.5 L Glucose POC Glucose 118 H Calcium Phosphorus Magnesium Direct Bilirubin AST Alkaline Phosphatase C-Reactive Protein Serum Total Protein Total Protein Albumin Prealbumin Uldbs-5-Fvuhgflbi Bkayx-8-Sepespqnj Gamma Globulins PEP Interpretation Triglycerides Urine pH Urine Creatinine Urine Total Protein Vancomycin Trough Digoxin Crossmatch 11/21/19 11/22/19 13:32 08:13 WBC 13.7 H RBC 2.99 L Hgb 8.2 L Hct 24.7 L MCV 83 L MCH 27 L MCHC RDW 16.5 H Plt Count Lymph % (Auto) 7.8 L Iron % (Auto) 7.5 H Lymph # 1.1 L Iron # 1.0 H Seg Neutrophils % 83.3 H Seg Neuts % (Manual) Lymphocytes % (Manual) Seg Neutrophils # 11.4 H Seg Neutrophils # Man Lymphocytes # (Manual) Monocytes # (Manual) POC ABG pH ABG pH POC ABG pCO2 POC ABG pO2 ABG pO2 ABG HCO3 ABG Base Excess ABG Hemoglobin Oxyhemoglobin Sodium Potassium Chloride Carbon Dioxide BUN Creatinine Glucose POC Glucose Calcium Phosphorus Magnesium Direct Bilirubin AST Alkaline Phosphatase C-Reactive Protein Serum Total Protein Total Protein Albumin Prealbumin Ocprl-2-Lsrgjfgxp Hjret-9-Lutyfbnss Gamma Globulins PEP Interpretation Triglycerides Urine pH Urine Creatinine Urine Total Protein Vancomycin Trough Digoxin Crossmatch See Detail
[2019-11-22] MEDS: CITALOPRAM 20 MG TAB PO SCH (09:00)
[2019-11-22] MEDS: PANTOPRAZOLE 40 MG TAB PO SCH (09:00)
[2019-11-22] MEDS: AMIODARONE 200 MG TAB PO SCH (09:00)
[2019-11-22] MEDS: BUDESONIDE 0.5 MG/2 ML NEBU IH SCH ×2 (09:38→21:11)
[2019-11-22] MEDS: ARFORMOTEROL 15 MCG/2 ML NEBU IH SCH ×2 (09:39→21:11)
--- NOTE | 2019-11-22 11:08 | Progress Note ---
Assessment and Plan - Patient Problems (1) Dehiscence of closure of fascia, superficial or muscular Current Visit: No Status: Acute Qualifiers: Encounter type: initial encounter Qualified Code(s): T81.32XA - Disruption of internal operation (surgical) wound, not elsewhere classified, initial encounter Plan to address problem: Pt stable. s/p ex lap with closure of abdominal wall and wound vac placement (10/05) - POD#48; s/p Re-exploration, washout, transection of colon, Abthera placement - 10/13 - POD#40; s/p abd washout, partial omentectomy, partial colectomy with colostomy - 10/16 POD#37; s/p abd washout, feeding tube placement, AbThera placement - 10/19 - POD#34; Abdominal washout and closure - 10/22 - POD#31 Patient appears stable. Rec: 1) Neuro - self-extubated 11/04. 2) CV - BP normal today. Appreciate hospitalist help with transfusion and adjustment BP meds. 3) Resp - On NC. Small bore CT on left - removed 11/02. 4) GI - Ostomy looks good. Functioning. Sump drains - both are out now. Left one removed today. I checked for any residu Midline drain - seems to be working well. may eventually become main drain and we can remove the last left sided drain if the output is minimal. Wound Vac - wound looked good on last check. may be able to d/c wound vac soon. Ostomy - functioning. Gastric Port - May be used as needed for feeds or meds 5) - BUN/Cr stable. 6) ID - Abx per ID. Enterococcus on cultures. If patient has worsening labs/vitals, then rescan and place additional drains as appropriate. Discussed Abx plan with Dr. Lorenzo. I am ok with trial off Abx, 7) Nutrition - Oral nutrition. Check prealbumin next Tuesday Passed Speech Eval. 8) DVT prophylaxis - SCDs. Lovenox 9) Family -no family at bedside. 10) PT - will need rehab. 11) Dispo - Ok for transfer to rehab from my perspective. Await Rehab decision on acceptance. Note: Spoke with [place] surgeon on 11/01/19 about possible transfer. They reviewed the notes that were sent and we discussed the case. They felt that they had nothing else to offer. They agreed with our management. Also agreed that another exploration should not be done. If needed, additional drains can be placed. They did suggest putting a [place] tube in the rectum to decompress that area. (That has been done). This conversation was communicated to the . Please call with questions. Subjective Date of service: 11/22/19 Patient Reports: Positive: no new complaints Objective Vital Signs - 12hr 11/21/19 11/21/19 11/21/19 23:48 23:55 23:56 Temperature 98.5 F Pulse Rate 91 H 75 Pulse Rate [ Anterior Right] Respiratory 18 20 Rate Respiratory Rate [Anterior Right] Blood Pressure 121/56 121/56 O2 Sat by Pulse 95 Oximetry 11/22/19 11/22/19 11/22/19 04:04 06:17 08:00 Temperature 98.7 F Pulse Rate 77 75 Pulse Rate [ 75 Anterior Right] Respiratory 18 Rate Respiratory 19 Rate [Anterior Right] Blood Pressure 113/52 113/52 O2 Sat by Pulse 98 Oximetry 11/22/19 11/22/19 08:11 09:41 Temperature 98.6 F Pulse Rate 79 Pulse Rate [ Anterior Right] Respiratory 20 Rate Respiratory Rate [Anterior Right] Blood Pressure 116/55 O2 Sat by Pulse 97 97 Oximetry - General physical appearance no distress, no pain, obese, other (unchanged in appearance. ) - Eyes normal occular movement - Respiratory normal expansion, normal respiratory effort - Abdomen soft, tender (only at drain site.), not guarding, not rigid, other (left sump drain removed easily. ) - Psychiatric oriented to time, oriented to person, oriented to place, speech is normal, memory intact - Labs 11/22/19 08:13 11/21/19 07:40
--- NOTE | 2019-11-22 21:27 | Progress Note ---
Assessment and Plan - Patient Problems (1) Evisceration of bowel Current Visit: Yes Status: Deleted Plan to address problem: Patient status post surgical correction daughter well pain stable. Patient white count did go up to 21. Not sure if this is related. No fever. (2) COPD (chronic obstructive pulmonary disease) Current Visit: Yes Status: Deleted Qualifiers: COPD type: unspecified COPD Qualified Code(s): J44.9 - Chronic obstructive pulmonary disease, unspecified Plan to address problem: Doing much better. Would discontinue continuous pulse ox so patient can become more active walking around. Judgment is debility. (3) HLD (hyperlipidemia) Current Visit: Yes Status: Deleted Qualifiers: Hyperlipidemia type: mixed hyperlipidemia Qualified Code(s): E78.2 - Mixed hyperlipidemia Plan to address problem: Patient lipids stable. Continue statin if needed. (4) HTN (hypertension) Current Visit: Yes Status: Deleted Qualifiers: Hypertension type: essential hypertension Qualified Code(s): I10 - Essential (primary) hypertension Plan to address problem: Patient continues to have optimal control blood pressure. Does have some lower extremity edema that needs to be addressed. (5) COPD (chronic obstructive pulmonary disease) Current Visit: No Status: Acute Qualifiers: COPD type: COPD with acute exacerbation Qualified Code(s): J44.1 - Chronic obstructive pulmonary disease with (acute) exacerbation (6) Lower extremity edema Current Visit: Yes Status: Acute (7) Edema of both lower extremities Current Visit: Yes Status: Acute Plan to address problem: Both lower extremities. Appears to be dependent edema patient has been in bed sits up at the side of bed gravity takes fluid down to the legs. Patient does have +4 pitting edema. We'll treat with low-dose diuretic now. History Interval history: Patient was recently receiving blood this past a.m. No new events overnight. Hospitalist Physical - Constitutional Vitals: Temp Pulse Resp BP Pulse Ox 98.0 F 88 20 128/63 92 11/22/19 15:44 11/22/19 21:13 11/22/19 21:13 11/22/19 15:44 11/22/19 21:15 General appearance: Present: no acute distress, obese - EENT Eyes: Present: PERRL, EOM intact ENT: hearing intact, clear oral mucosa, dentition normal - Neck Neck: Present: supple, normal ROM - Respiratory Respiratory: bilateral: CTA - Cardiovascular Rhythm: irregularly irregular - Extremities Extremities: no ischemia, pulses intact, No edema, normal temperature, normal color Peripheral Pulses: within normal limits - Abdominal General gastrointestinal: distended, hypoactive bowel sounds, no hepatomegaly, no splenomegaly - Integumentary Integumentary: Present: clear, warm, dry Results - Labs CBC & Chem 7: 11/22/19 08:13 11/21/19 07:40 Labs: Laboratory Last Values WBC 13.7 K/mm3 (4.5-11.0) H 11/22/19 08:13 RBC 2.99 M/mm3 (3.65-5.03) L 11/22/19 08:13 Hgb 8.2 gm/dl (11.8-15.2) L 11/22/19 08:13 Hct 24.7 % (35.5-45.6) L 11/22/19 08:13 MCV 83 fl (84-94) L 11/22/19 08:13 MCH 27 pg (28-32) L 11/22/19 08:13 MCHC 33 % (32-34) 11/22/19 08:13 RDW 16.5 % (13.2-15.2) H 11/22/19 08:13 Plt Count 428 K/mm3 (140-440) 11/22/19 08:13 Lymph % (Auto) 7.8 % (13.4-35.0) L 11/22/19 08:13 [place] % (Auto) 7.5 % (0.0-7.3) H 11/22/19 08:13 Eos % (Auto) 0.9 % (0.0-4.3) 11/22/19 08:13 Baso % (Auto) 0.5 % (0.0-1.8) 11/22/19 08:13 Lymph # 1.1 K/mm3 (1.2-5.4) L 11/22/19 08:13 [place] # 1.0 K/mm3 (0.0-0.8) H 11/22/19 08:13 Eos # 0.1 K/mm3 (0.0-0.4) 11/22/19 08:13 Baso # 0.1 K/mm3 (0.0-0.1) 11/22/19 08:13 Add Manual Diff Complete 10/16/19 09:20 Total Counted 100 10/16/19 09:20 Seg Neutrophils % 83.3 % (40.0-70.0) H 11/22/19 08:13 Seg Neuts % (Manual) 79.0 % (40.0-70.0) H 10/16/19 09:20 Band Neutrophils % 12.0 % 10/16/19 09:20 Lymphocytes % (Manual) 4.0 % (13.4-35.0) L 10/16/19 09:20 Reactive Lymphs % (Man) 0 % 10/16/19 09:20 Monocytes % (Manual) 2.0 % (0.0-7.3) 10/16/19 09:20 Eosinophils % (Manual) 0 % (0.0-4.3) 10/16/19 09:20 Basophils % (Manual) 0 % (0.0-1.8) 10/16/19 09:20 Metamyelocytes % 2.0 % 10/16/19 09:20 Myelocytes % 1.0 % 10/16/19 09:20 Promyelocytes % 0 % 10/16/19 09:20 Blast Cells % 0 % 10/16/19 09:20 Nucleated RBC % Not Reportable 10/16/19 09:20 Seg Neutrophils # 11.4 K/mm3 (1.8-7.7) H 11/22/19 08:13 Seg Neutrophils # Man 11.5 K/mm3 (1.8-7.7) H 10/16/19 09:20 Band Neutrophils # 1.8 K/mm3 10/16/19 09:20 Lymphocytes # (Manual) 0.6 K/mm3 (1.2-5.4) L 10/16/19 09:20 Abs React Lymphs (Man) 0.0 K/mm3 10/16/19 09:20 Monocytes # (Manual) 0.3 K/mm3 (0.0-0.8) 10/16/19 09:20 Eosinophils # (Manual) 0.0 K/mm3 (0.0-0.4) 10/16/19 09:20 Basophils # (Manual) 0.0 K/mm3 (0.0-0.1) 10/16/19 09:20 Metamyelocytes # 0.3 K/mm3 10/16/19 09:20 Myelocytes # 0.1 K/mm3 10/16/19 09:20 Promyelocytes # 0.0 K/mm3 10/16/19 09:20 Blast Cells # 0.0 K/mm3 10/16/19 09:20 WBC Morphology Not Reportable 10/16/19 09:20 Hypersegmented Neuts Not Reportable 10/16/19 09:20 Hyposegmented Neuts Not Reportable 10/16/19 09:20 Hypogranular Neuts Not Reportable 10/16/19 09:20 Smudge Cells Not Reportable 10/16/19 09:20 Toxic Granulation Not Reportable 10/16/19 09:20 Toxic Vacuolation Not Reportable 10/16/19 09:20 Dohle Bodies Not Reportable 10/16/19 09:20 Pelger-Huet Anomaly Not Reportable 10/16/19 09:20 Andres Rods Not Reportable 10/16/19 09:20 Platelet Estimate Consistent w auto 10/16/19 09:20 Clumped Platelets Not Reportable 10/16/19 09:20 Plt Clumps, EDTA Not Reportable 10/16/19 09:20 Large Platelets Not Reportable 10/16/19 09:20 Giant Platelets Not Reportable 10/16/19 09:20 Platelet Satelliting Not Reportable 10/16/19 09:20 Plt Morphology Comment Not Reportable 10/16/19 09:20 RBC Morphology Not Reportable 10/16/19 09:20 Dimorphic RBCs Not Reportable 10/16/19 09:20 Polychromasia Few 10/16/19 09:20 Hypochromasia Few 10/16/19 09:20 Poikilocytosis Not Reportable 10/16/19 09:20 Anisocytosis Not Reportable 10/16/19 09:20 Microcytosis Not Reportable 10/16/19 09:20 Macrocytosis Not Reportable 10/16/19 09:20 Spherocytes Not Reportable 10/16/19 09:20 Pappenheimer Bodies Not Reportable 10/16/19 09:20 Sickle Cells Not Reportable 10/16/19 09:20 Target Cells Few 10/16/19 09:20 Tear Drop Cells Not Reportable 10/16/19 09:20 Ovalocytes Not Reportable 10/16/19 09:20 Helmet Cells Not Reportable 10/16/19 09:20 [place] Bodies Not Reportable 10/16/19 09:20 [place] Rings Not Reportable 10/16/19 09:20 [place] Cells Not Reportable 10/16/19 09:20 Bite Cells Not Reportable 10/16/19 09:20 Crenated Cell Not Reportable 10/16/19 09:20 Elliptocytes Not Reportable 10/16/19 09:20 Acanthocytes (Spur) Not Reportable 10/16/19 09:20 Rouleaux Not Reportable 10/16/19 09:20 Hemoglobin C Crystals Not Reportable 10/16/19 09:20 Schistocytes Not Reportable 10/16/19 09:20 Malaria parasites Not Reportable 10/16/19 09:20 Toni Bodies Not Reportable 10/16/19 09:20 Hem Pathologist Commnt No 10/16/19 09:20 POC ABG pH 7.422 (7.35-7.45) 11/03/19 04:28 ABG pH 7.390 pH Units (7.350-7.450) 10/23/19 04:47 POC ABG pCO2 45.4 (35-45) H 11/03/19 04:28 ABG pCO2 48.4 mm Hg 10/23/19 04:47 POC ABG pO2 83 (80-105) 11/03/19 04:28 ABG pO2 68.9 mm Hg (80.0-90.0) L 10/23/19 04:47 POC ABG HCO3 29.6 (22-26 mml/L) 11/03/19 04:28 ABG HCO3 28.7 mmol/L (20.0-26.0) H 10/23/19 04:47 POC ABG Total CO2 31 (23-27mmol/L) 11/03/19 04:28 POC ABG O2 Sat 96 11/03/19 04:28 ABG O2 Saturation 96.6 % (95.0-99.0) 10/23/19 04:47 ABG O2 Content 8.8 (0.0-44) 10/23/19 04:47 POC ABG Base Excess 5 ((-2) - (+3)mmol/L) 11/03/19 04:28 ABG Base Excess 3.4 mmol/L (-2.0-3.0) H 10/23/19 04:47 ABG Hemoglobin 6.6 gm/dl (14.0-18.0) L 10/23/19 04:47 ABG Carboxyhemoglobin 2.1 % (0.0-5.0) 10/23/19 04:47 ABG Methemoglobin 0.5 % (0.0-1.5) 10/23/19 04:47 Oxyhemoglobin 94.1 % (95.0-99.0) L 10/23/19 04:47 FiO2 40 % 11/03/19 04:28 Sodium 138 mmol/L (137-145) 11/21/19 07:40 Potassium 3.6 mmol/L (3.6-5.0) 11/21/19 07:40 Chloride 99.7 mmol/L (98-107) 11/21/19 07:40 Carbon Dioxide 22 mmol/L (22-30) 11/21/19 07:40 Anion Gap 20 mmol/L 11/21/19 07:40 BUN 10 mg/dL (9-20) 11/21/19 07:40 Creatinine 0.5 mg/dL (0.8-1.5) L 11/21/19 07:40 Estimated GFR > 60 ml/min 11/21/19 07:40 BUN/Creatinine Ratio 20 % 11/21/19 07:40 Glucose 94 mg/dL (75-100) 11/21/19 07:40 POC Glucose 96 (70-105) 11/22/19 16:34 Hemoglobin A1c 5.7 % (4-6) 10/06/19 05:36 Lactic Acid 1.10 mmol/L (0.7-2.0) 10/13/19 04:20 Calcium 9.2 mg/dL (8.4-10.2) 11/21/19 07:40 Ionized Calcium 5.2 mg/dL (4.8-5.6) 10/18/19 07:41 Phosphorus 2.70 mg/dL (2.5-4.5) 11/02/19 12:43 Magnesium 2.40 mg/dL (1.7-2.3) H 11/02/19 12:43 Total Bilirubin 1.10 mg/dL (0.1-1.2) 10/26/19 06:15 Direct Bilirubin 0.7 mg/dL (0-0.2) H 10/23/19 10:44 Indirect Bilirubin 0.1 mg/dL 10/23/19 10:44 AST 23 units/L (5-40) 10/26/19 06:15 ALT 13 units/L (7-56) 10/26/19 06:15 Alkaline Phosphatase 148 units/L (35-129) H 10/26/19 06:15 Ammonia 49.0 umol/L (25-60) 10/13/19 04:20 Troponin T < 0.010 ng/mL (0.00-0.029) 10/09/19 17:23 C-Reactive Protein 30.60 mg/dL (0.00-1.30) H 10/15/19 04:32 Serum Total Protein 5.2 g/dL (6.1-8.1) L 10/11/19 09:00 Total Protein 5.9 g/dL (6.3-8.2) L 10/26/19 06:15 Albumin 2.4 g/dL (3.9-5) L 10/26/19 06:15 Albumin/Globulin Ratio 0.7 % 10/26/19 06:15 Prealbumin 0.030 g/L (0.200-0.400) L 10/15/19 04:32 [id number] See scanned result 10/11/19 Unknown [id number] See scanned result 10/11/19 Unknown Beta Globulins See scanned result 10/11/19 Unknown Gamma Globulins See scanned result 10/11/19 Unknown Abnorm Protein Band 1 see below 10/11/19 09:00 PEP Interpretation See scanned result 10/11/19 Unknown Triglycerides 185 mg/dL (2-149) H 10/26/19 06:15 Urine Color Yellow (Yellow) 10/26/19 Unknown Urine Turbidity Clear (Clear) 10/26/19 Unknown Urine pH 9.0 (5.0-7.0) H 10/26/19 Unknown Ur Specific [place] 1.011 (1.003-1.030) 10/26/19 Unknown Urine Protein 30 mg/dl mg/dL (Negative) 10/26/19 Unknown Urine Glucose (UA) Neg mg/dL (Negative) 10/26/19 Unknown Urine Ketones Neg mg/dL (Negative) 10/26/19 Unknown Urine Blood Neg (Negative) 10/26/19 Unknown Urine Nitrite Neg (Negative) 10/26/19 Unknown Urine Bilirubin Neg (Negative) 10/26/19 Unknown Urine Urobilinogen < 2.0 mg/dL (<2.0) 10/26/19 Unknown Ur Leukocyte Esterase Neg (Negative) 10/26/19 Unknown Urine WBC (Auto) 1.0 /HPF (0.0-6.0) 10/26/19 Unknown Urine RBC (Auto) 1.0 /HPF (0.0-6.0) 10/26/19 Unknown Urine Bacteria (Auto) 1+ /HPF (Negative) 10/11/19 06:23 Urine Mucus Few /HPF 10/26/19 Unknown Urine Eosinophils None seen (None Seen) 10/11/19 06:23 Ur Random Creatinine See scanned result 10/11/19 Unknown U Random Total Protein See scanned result 10/11/19 Unknown Urine Creatinine 116.8 mg/dL (0.1-20.0) H 10/11/19 06:23 Urine Creatinine 118.2 mg/dL (0.1-20.0) H 10/11/19 06:23 Protein/Creatinin Ratio See scanned result 10/11/19 Unknown Urine Sodium 14 mmol/L 10/11/19 06:23 Urine Total Protein 104 mg/dL (5-11.8) H 10/11/19 06:23 Urine Total Protein 105 mg/dL (5-11.8) H 10/11/19 06:23 U Abnormal Prot Band 1 See scanned result 10/11/19 Unknown U Abnormal Prot Band 2 See scanned result 10/11/19 Unknown U Abnormal Prot Band 3 See scanned result 10/11/19 Unknown Vancomycin Trough 5.7 ug/mL (5.0-20.0) 11/05/19 09:00 Random Vancomycin 9.6 ug/mL (0-40.0) 11/03/19 03:42 Digoxin 0.7 ng/mL (0.9-2.0) L 10/19/19 04:21 Blood Type A POSITIVE 11/21/19 13:32 Antibody Screen Negative 11/21/19 13:32 Crossmatch See Detail 11/21/19 13:32 Active Medications - Current Medications Current Medications: Generic Name Dose Route Start Last Admin Trade Name Freq PRN Reason Stop Dose Admin Acetaminophen 650 mg 10/25/19 13:00 11/20/19 03:52 Tylenol FEEDTUBE 650 mg Q4H PRN Administration Fever >100.5 Acetaminophen/Hydrocodone Bitart 7.5 mg 11/18/19 19:00 11/22/19 15:38 Hydrocodone/Apap 7.5-325 PO 7.5 mg Q4H PRN Administration Pain, Moderate (4-6) Albuterol/Ipratropium 1 ampul 10/06/19 02:00 11/22/19 21:11 Duoneb *Not For Prn Use* IH 1 ampul Q6HRT VERÓNICA Administration Amiodarone HCl 200 mg 10/23/19 13:00 11/22/19 09:00 Cordarone PO 200 mg QDAY VERÓNICA Administration Lipase/Protease/Amylase 1 each 10/20/19 10:37 Pancreazanamika Moreno 10,500 Unit FEEDTUBE PRN PRN For Clogged Feeding Tube Arformoterol Tartrate 15 mcg 10/06/19 08:30 11/22/19 21:11 Brovana Nebu IH 15 mcg Q12HRT VERÓNICA Administration Budesonide 0.5 mg 10/07/19 12:20 11/22/19 21:11 Pulmicort IH 0.5 mg Q12HRT VERÓNICA Administration Citalopram Hydrobromide 20 mg 10/27/19 12:00 11/22/19 09:00 Celexa PO 20 mg DAILY VERÓNICA Administration Diphenhydramine HCl 25 mg 11/17/19 20:15 11/17/19 20:58 Benadryl PO 25 mg Q6H PRN Administration Itching Enoxaparin Sodium 40 mg 11/05/19 22:00 11/21/19 21:17 Enoxaparin SUB-Q 40 mg QDAY@2200 VERÓNICA Administration Haloperidol Lactate 5 mg 10/25/19 18:22 11/12/19 03:33 Haldol IV 5 mg Q6H PRN Administration Agitation Hydralazine HCl 10 mg 10/28/19 14:09 11/02/19 15:34 Apresoline IV 10 mg Q4HR PRN Administration Hypertension Hydromorphone HCl 2 mg 10/25/19 12:35 11/19/19 10:41 Dilaudid IV 2 mg Q4H PRN Administration Pain , Severe (7-10) Insulin Human Lispro 0 unit 10/14/19 12:00 11/22/19 12:01 Humalog SUB-Q Not Given Q6HR [facility] Protocol Metoprolol Tartrate 2.5 mg 10/15/19 15:34 11/01/19 18:00 Metoprolol IV 2.5 mg Q4HR PRN Administration HR >130 Metoprolol Tartrate 12.5 mg 11/21/19 16:00 11/22/19 15:06 Metoprolol PO Not Given Q8HR [facility] Multi-Ingred Cream/Lotion/Oil/Oint 1 applic 10/14/19 02:19 Artificial Tears Ophth Oint OU Q4HR PRN Dry Eye(s) Pantoprazole Sodium 40 mg 11/20/19 10:00 11/22/19 09:00 Protonix PO 40 mg DAILY VERÓNICA Administration Simple Syrup 15 ml 10/20/19 10:37 Simple Syrup FEEDTUBE PRN PRN Hypoglycemia Simple Syrup 30 ml 10/20/19 10:37 Simple Syrup FEEDTUBE PRN PRN Hypoglycemia Sodium Bicarbonate 325 mg 10/20/19 10:37 11/14/19 05:59 Sodium Bicarbonate FEEDTUBE 325 mg PRN PRN Administration For Clogged Feeding Tube Sodium Chloride 10 ml 11/07/19 19:32 11/18/19 22:05 Sodium Chloride Flush Syringe 10 Ml IV 10 ml PRN PRN Administration LINE FLUSH Zolpidem Tartrate 5 mg 11/10/19 21:00 11/11/19 03:30 Ambien FEEDTUBE 5 mg QHS PRN Administration Sleep Nutrition/Malnutrition Assess - Dietary Evaluation Nutrition/Malnutrition Findings: Nutrition Notes Start: 10/08/19 11:36 Freq: Status: Active Protocol: Document 11/22/19 12:23 JENN (Rec: 11/22/19 12:35 JENN [id number]) Co-Sign 11/22/19 12:23 LP Nutrition Notes Initial or Follow up Reassessment Current Diagnosis Acute Kidney Injury,COPD, Hypertension Other Pertinent Diagnosis intra-abdominal infection, disruption of bowel anastomosis, LE edema Current Diet Regular Labs/Tests Cr 0.5 Pertinent Medications Dilaudid Height 6 ft Weight 107.2 kg [place] Body Weight (kg) 80.90 BMI 32.0 Weight change and time frame Wt change noted. Pt was was from recent bedscale. Possibly inaccurate wt Weight Status Morbidly Obese Subjective/Other Information F/U for PO intakes. Pt stated his appetite was good. Pt ate about 75% of breakfast. Pt stated that he got outside food for all meals yesterday. Percent of energy/protein needs met: unable to determine Burn Absent Trauma Absent GI Symptoms None Current % PO Good (75-100%) Minimum of two criteria No Fluid Accumulation Mild (non-severe) #1 Nutrition Diagnosis Increased nutrient needs ( specify in comment below) Diagnosis Progress(for reassessment Continues documentation) Is patient on ventilator? No Is Patient Ambulatory and/or Out of Bed No REE-([place]-confined to bed) 2332.092 Kcal/Kg value to use for calculation 19 Approximate Energy Requirements Using 2037 kcal/Kg Calculation Used for Recommendations Kcal/kg Additional Notes Protein: 136-169g (1.2-1.5g/kg ) AdjBW 113kg Fluid 1 ml/kcal or per MD Nutrition Intervention Change Diet Order: Continue regular Goal #1 Meet at least 80% of energy and protein needs via PO intakes Anticipated Discharge Needs: Regular diet Follow-Up By: 11/29/19 Additional Comments F/U for PO intakes
[2019-11-22] MEDS: ENOXAPARIN 40 MG/0.4 ML INJ SUB-Q SCH (22:55)
[2019-11-23] MEDS: INSULIN LISPRO 100 UNIT/ML SUB-Q SCH ×4 (01:00→18:21)
[2019-11-23] MEDS: HYDROcodone/APAP 7.5-325MG-15ML ORAL LIQD PO PRN ×3 (01:16→22:34)
[2019-11-23] MEDS: METOPROLOL TARTRATE 50 MG TAB PO SCH ×3 (06:26→22:16)
[2019-11-23] MEDS: BUDESONIDE 0.5 MG/2 ML NEBU IH SCH ×2 (08:01→20:46)
[2019-11-23] MEDS: ARFORMOTEROL 15 MCG/2 ML NEBU IH SCH ×2 (08:01→20:46)
[2019-11-23] MEDS: IPRATROPIUM/ALBUTEROL SULFATE 3 ML AMPUL.NEB IH SCH ×3 (08:01→20:46)
[2019-11-23] MEDS: AMIODARONE 200 MG TAB PO SCH (10:24)
[2019-11-23] MEDS: CITALOPRAM 20 MG TAB PO SCH (10:24)
[2019-11-23] MEDS: PANTOPRAZOLE 40 MG TAB PO SCH (10:24)
--- NOTE | 2019-11-23 13:51 | Progress Note ---
Assessment and Plan - Patient Problems (1) Dehiscence of closure of fascia, superficial or muscular Current Visit: No Status: Acute Qualifiers: Encounter type: initial encounter Qualified Code(s): T81.32XA - Disruption of internal operation (surgical) wound, not elsewhere classified, initial encounter Plan to address problem: Pt stable. s/p ex lap with closure of abdominal wall and wound vac placement (10/05) - POD#49; s/p Re-exploration, washout, transection of colon, Abthera placement - 10/13 - POD#41; s/p abd washout, partial omentectomy, partial colectomy with colostomy - 10/16 POD#38; s/p abd washout, feeding tube placement, AbThera placement - 10/19 - POD#35; Abdominal washout and closure - 10/22 - POD#32 Patient appears stable. Rec: 1) Neuro - self-extubated 11/04. 2) CV - BP normal today. Appreciate hospitalist help with transfusion and adjustment BP meds. 3) Resp - On NC. Small bore CT on left - removed 11/02. 4) GI - Ostomy looks good. Functioning. Sump drains - both are out now. Midline drain - seems to be working well. may eventually become main drain and we can remove the last left sided drain if the output is minimal. Wound Vac - wound looked good on last check. wound vac done. Now with wound landscape account manager. Need to keep catheter in wound to stent open the drainage point. Ostomy - functioning. Gastric Port - May be used as needed for feeds or meds. Will most likely remove when he is scheduled to be transferred to acute rehab. 5) - BUN/Cr stable. 6) ID - Abx per ID. Enterococcus on cultures. If patient has worsening labs/vitals, then rescan and place additional drains as appropriate. Discussed Abx plan with Dr. Lorenzo. I am ok with trial off Abx, 7) Nutrition - Oral nutrition. Check prealbumin next Tuesday Passed Speech Eval. 8) DVT prophylaxis - SCDs. Lovenox 9) Family -no family at bedside. 10) PT - will need rehab. 11) Dispo - Ok for transfer to rehab from my perspective. Await Rehab decision on acceptance. Note: Spoke with [place] surgeon on 11/01/19 about possible transfer. They reviewed the notes that were sent and we discussed the case. They felt that they had nothing else to offer. They agreed with our management. Also agreed that another exploration should not be done. If needed, additional drains can be placed. They did suggest putting a [place] tube in the rectum to decompress that area. (That has been done). This conversation was communicated to the . Please call with questions. Subjective Date of service: 11/23/19 Patient Reports: Positive: other (slept better with the drain out. wound vac changed to wound landscape account manager.) Objective Vital Signs - 12hr 11/23/19 11/23/19 11/23/19 04:49 06:26 07:49 Temperature 98.4 F 98.2 F Pulse Rate 85 85 84 Pulse Rate [ Anterior Right] Respiratory 18 18 Rate Respiratory Rate [Anterior Right] Blood Pressure 113/59 113/59 111/47 O2 Sat by Pulse 96 96 Oximetry 11/23/19 11/23/19 11/23/19 08:00 08:03 08:36 Temperature Pulse Rate Pulse Rate [ 85 Anterior Right] Respiratory 18 Rate Respiratory 20 Rate [Anterior Right] Blood Pressure O2 Sat by Pulse 95 Oximetry 11/23/19 11/23/19 11/23/19 10:00 11:40 13:03 Temperature 98.9 F Pulse Rate 84 86 86 Pulse Rate [ Anterior Right] Respiratory 18 Rate Respiratory Rate [Anterior Right] Blood Pressure 115/53 115/53 O2 Sat by Pulse 95 Oximetry - General physical appearance no distress, no pain, obese - Eyes normal occular movement - Respiratory normal expansion, normal respiratory effort - Psychiatric oriented to time, oriented to person, oriented to place, speech is normal, memory intact - Additional Exam working with PT - Labs 11/22/19 08:13 11/21/19 07:40
--- NOTE | 2019-11-23 21:14 | Progress Note ---
Assessment and Plan - Patient Problems (1) Evisceration of bowel Current Visit: Yes Status: Deleted Plan to address problem: Patient abdominal wounds look better has regained some strength.. Not sure if this is related. No fever. Improving. (2) COPD (chronic obstructive pulmonary disease) Current Visit: Yes Status: Deleted Qualifiers: COPD type: unspecified COPD Qualified Code(s): J44.9 - Chronic obstructive pulmonary disease, unspecified Plan to address problem: Doing much better. Would discontinue continuous pulse ox so patient can become more active walking around. Judgment is debility. (3) HLD (hyperlipidemia) Current Visit: Yes Status: Deleted Qualifiers: Hyperlipidemia type: mixed hyperlipidemia Qualified Code(s): E78.2 - Mixed hyperlipidemia Plan to address problem: Patient lipids stable. Continue statin if needed. (4) HTN (hypertension) Current Visit: Yes Status: Deleted Qualifiers: Hypertension type: essential hypertension Qualified Code(s): I10 - Essential (primary) hypertension Plan to address problem: Patient continues to have optimal control blood pressure. Does have some lower extremity edema that needs to be addressed. (5) COPD (chronic obstructive pulmonary disease) Current Visit: No Status: Acute Qualifiers: COPD type: COPD with acute exacerbation Qualified Code(s): J44.1 - Chronic obstructive pulmonary disease with (acute) exacerbation (6) Lower extremity edema Current Visit: Yes Status: Acute (7) Edema of both lower extremities Current Visit: Yes Status: Acute Plan to address problem: Both lower extremities. Appears to be dependent edema patient has been in bed sits up at the side of bed gravity takes fluid down to the legs. Patient does have +4 pitting edema. We'll treat with low-dose diuretic now. History Interval history: Patient this a.m. felt down because he thought he has been in the hospital too long and house will be given away. Now calm. Pain improved no pain now patient is able to stand at bedside. Hospitalist Physical - Constitutional Vitals: Temp Pulse Resp BP Pulse Ox 98.6 F 87 20 116/54 95 11/23/19 16:16 11/23/19 20:48 11/23/19 20:48 11/23/19 16:16 11/23/19 20:49 General appearance: Present: no acute distress, obese - EENT Eyes: Present: PERRL, EOM intact ENT: hearing intact, clear oral mucosa, dentition normal - Neck Neck: Present: supple, normal ROM - Respiratory Respiratory: bilateral: CTA - Cardiovascular Rhythm: regular Heart Sounds: Present: S1 & S2 - Extremities Extremities: no ischemia, pulses intact, pulses symmetrical, No edema, normal temperature, normal color - Abdominal General gastrointestinal: distended, hypoactive bowel sounds, other (Area b andaged. Surgical scars look appropriate.) - Integumentary Integumentary: Present: clear, warm, dry - Neurologic Neurologic: CNII-XII intact, moves all extremities Results - Labs CBC & Chem 7: 11/22/19 08:13 11/21/19 07:40 Labs: Laboratory Last Values WBC 13.7 K/mm3 (4.5-11.0) H 11/22/19 08:13 RBC 2.99 M/mm3 (3.65-5.03) L 11/22/19 08:13 Hgb 8.2 gm/dl (11.8-15.2) L 11/22/19 08:13 Hct 24.7 % (35.5-45.6) L 11/22/19 08:13 MCV 83 fl (84-94) L 11/22/19 08:13 MCH 27 pg (28-32) L 11/22/19 08:13 MCHC 33 % (32-34) 11/22/19 08:13 RDW 16.5 % (13.2-15.2) H 11/22/19 08:13 Plt Count 428 K/mm3 (140-440) 11/22/19 08:13 Lymph % (Auto) 7.8 % (13.4-35.0) L 11/22/19 08:13 [place] % (Auto) 7.5 % (0.0-7.3) H 11/22/19 08:13 Eos % (Auto) 0.9 % (0.0-4.3) 11/22/19 08:13 Baso % (Auto) 0.5 % (0.0-1.8) 11/22/19 08:13 Lymph # 1.1 K/mm3 (1.2-5.4) L 11/22/19 08:13 [place] # 1.0 K/mm3 (0.0-0.8) H 11/22/19 08:13 Eos # 0.1 K/mm3 (0.0-0.4) 11/22/19 08:13 Baso # 0.1 K/mm3 (0.0-0.1) 11/22/19 08:13 Add Manual Diff Complete 10/16/19 09:20 Total Counted 100 10/16/19 09:20 Seg Neutrophils % 83.3 % (40.0-70.0) H 11/22/19 08:13 Seg Neuts % (Manual) 79.0 % (40.0-70.0) H 10/16/19 09:20 Band Neutrophils % 12.0 % 10/16/19 09:20 Lymphocytes % (Manual) 4.0 % (13.4-35.0) L 10/16/19 09:20 Reactive Lymphs % (Man) 0 % 10/16/19 09:20 Monocytes % (Manual) 2.0 % (0.0-7.3) 10/16/19 09:20 Eosinophils % (Manual) 0 % (0.0-4.3) 10/16/19 09:20 Basophils % (Manual) 0 % (0.0-1.8) 10/16/19 09:20 Metamyelocytes % 2.0 % 10/16/19 09:20 Myelocytes % 1.0 % 10/16/19 09:20 Promyelocytes % 0 % 10/16/19 09:20 Blast Cells % 0 % 10/16/19 09:20 Nucleated RBC % Not Reportable 10/16/19 09:20 Seg Neutrophils # 11.4 K/mm3 (1.8-7.7) H 11/22/19 08:13 Seg Neutrophils # Man 11.5 K/mm3 (1.8-7.7) H 10/16/19 09:20 Band Neutrophils # 1.8 K/mm3 10/16/19 09:20 Lymphocytes # (Manual) 0.6 K/mm3 (1.2-5.4) L 10/16/19 09:20 Abs React Lymphs (Man) 0.0 K/mm3 10/16/19 09:20 Monocytes # (Manual) 0.3 K/mm3 (0.0-0.8) 10/16/19 09:20 Eosinophils # (Manual) 0.0 K/mm3 (0.0-0.4) 10/16/19 09:20 Basophils # (Manual) 0.0 K/mm3 (0.0-0.1) 10/16/19 09:20 Metamyelocytes # 0.3 K/mm3 10/16/19 09:20 Myelocytes # 0.1 K/mm3 10/16/19 09:20 Promyelocytes # 0.0 K/mm3 10/16/19 09:20 Blast Cells # 0.0 K/mm3 10/16/19 09:20 WBC Morphology Not Reportable 10/16/19 09:20 Hypersegmented Neuts Not Reportable 10/16/19 09:20 Hyposegmented Neuts Not Reportable 10/16/19 09:20 Hypogranular Neuts Not Reportable 10/16/19 09:20 Smudge Cells Not Reportable 10/16/19 09:20 Toxic Granulation Not Reportable 10/16/19 09:20 Toxic Vacuolation Not Reportable 10/16/19 09:20 Dohle Bodies Not Reportable 10/16/19 09:20 Pelger-Huet Anomaly Not Reportable 10/16/19 09:20 Andres Rods Not Reportable 10/16/19 09:20 Platelet Estimate Consistent w auto 10/16/19 09:20 Clumped Platelets Not Reportable 10/16/19 09:20 Plt Clumps, EDTA Not Reportable 10/16/19 09:20 Large Platelets Not Reportable 10/16/19 09:20 Giant Platelets Not Reportable 10/16/19 09:20 Platelet Satelliting Not Reportable 10/16/19 09:20 Plt Morphology Comment Not Reportable 10/16/19 09:20 RBC Morphology Not Reportable 10/16/19 09:20 Dimorphic RBCs Not Reportable 10/16/19 09:20 Polychromasia Few 10/16/19 09:20 Hypochromasia Few 10/16/19 09:20 Poikilocytosis Not Reportable 10/16/19 09:20 Anisocytosis Not Reportable 10/16/19 09:20 Microcytosis Not Reportable 10/16/19 09:20 Macrocytosis Not Reportable 10/16/19 09:20 Spherocytes Not Reportable 10/16/19 09:20 Pappenheimer Bodies Not Reportable 10/16/19 09:20 Sickle Cells Not Reportable 10/16/19 09:20 Target Cells Few 10/16/19 09:20 Tear Drop Cells Not Reportable 10/16/19 09:20 Ovalocytes Not Reportable 10/16/19 09:20 Helmet Cells Not Reportable 10/16/19 09:20 [place] Bodies Not Reportable 10/16/19 09:20 [place] Rings Not Reportable 10/16/19 09:20 [place] Cells Not Reportable 10/16/19 09:20 Bite Cells Not Reportable 10/16/19 09:20 Crenated Cell Not Reportable 10/16/19 09:20 Elliptocytes Not Reportable 10/16/19 09:20 Acanthocytes (Spur) Not Reportable 10/16/19 09:20 Rouleaux Not Reportable 10/16/19 09:20 Hemoglobin C Crystals Not Reportable 10/16/19 09:20 Schistocytes Not Reportable 10/16/19 09:20 Malaria parasites Not Reportable 10/16/19 09:20 Toni Bodies Not Reportable 10/16/19 09:20 Hem Pathologist Commnt No 10/16/19 09:20 POC ABG pH 7.422 (7.35-7.45) 11/03/19 04:28 ABG pH 7.390 pH Units (7.350-7.450) 10/23/19 04:47 POC ABG pCO2 45.4 (35-45) H 11/03/19 04:28 ABG pCO2 48.4 mm Hg 10/23/19 04:47 POC ABG pO2 83 (80-105) 11/03/19 04:28 ABG pO2 68.9 mm Hg (80.0-90.0) L 10/23/19 04:47 POC ABG HCO3 29.6 (22-26 mml/L) 11/03/19 04:28 ABG HCO3 28.7 mmol/L (20.0-26.0) H 10/23/19 04:47 POC ABG Total CO2 31 (23-27mmol/L) 11/03/19 04:28 POC ABG O2 Sat 96 11/03/19 04:28 ABG O2 Saturation 96.6 % (95.0-99.0) 10/23/19 04:47 ABG O2 Content 8.8 (0.0-44) 10/23/19 04:47 POC ABG Base Excess 5 ((-2) - (+3)mmol/L) 11/03/19 04:28 ABG Base Excess 3.4 mmol/L (-2.0-3.0) H 10/23/19 04:47 ABG Hemoglobin 6.6 gm/dl (14.0-18.0) L 10/23/19 04:47 ABG Carboxyhemoglobin 2.1 % (0.0-5.0) 10/23/19 04:47 ABG Methemoglobin 0.5 % (0.0-1.5) 10/23/19 04:47 Oxyhemoglobin 94.1 % (95.0-99.0) L 10/23/19 04:47 FiO2 40 % 11/03/19 04:28 Sodium 138 mmol/L (137-145) 11/21/19 07:40 Potassium 3.6 mmol/L (3.6-5.0) 11/21/19 07:40 Chloride 99.7 mmol/L (98-107) 11/21/19 07:40 Carbon Dioxide 22 mmol/L (22-30) 11/21/19 07:40 Anion Gap 20 mmol/L 11/21/19 07:40 BUN 10 mg/dL (9-20) 11/21/19 07:40 Creatinine 0.5 mg/dL (0.8-1.5) L 11/21/19 07:40 Estimated GFR > 60 ml/min 11/21/19 07:40 BUN/Creatinine Ratio 20 % 11/21/19 07:40 Glucose 94 mg/dL (75-100) 11/21/19 07:40 POC Glucose 131 (70-105) H 11/23/19 16:41 Hemoglobin A1c 5.7 % (4-6) 10/06/19 05:36 Lactic Acid 1.10 mmol/L (0.7-2.0) 10/13/19 04:20 Calcium 9.2 mg/dL (8.4-10.2) 11/21/19 07:40 Ionized Calcium 5.2 mg/dL (4.8-5.6) 10/18/19 07:41 Phosphorus 2.70 mg/dL (2.5-4.5) 11/02/19 12:43 Magnesium 2.40 mg/dL (1.7-2.3) H 11/02/19 12:43 Total Bilirubin 1.10 mg/dL (0.1-1.2) 10/26/19 06:15 Direct Bilirubin 0.7 mg/dL (0-0.2) H 10/23/19 10:44 Indirect Bilirubin 0.1 mg/dL 10/23/19 10:44 AST 23 units/L (5-40) 10/26/19 06:15 ALT 13 units/L (7-56) 10/26/19 06:15 Alkaline Phosphatase 148 units/L (35-129) H 10/26/19 06:15 Ammonia 49.0 umol/L (25-60) 10/13/19 04:20 Troponin T < 0.010 ng/mL (0.00-0.029) 10/09/19 17:23 C-Reactive Protein 30.60 mg/dL (0.00-1.30) H 10/15/19 04:32 Serum Total Protein 5.2 g/dL (6.1-8.1) L 10/11/19 09:00 Total Protein 5.9 g/dL (6.3-8.2) L 10/26/19 06:15 Albumin 2.4 g/dL (3.9-5) L 10/26/19 06:15 Albumin/Globulin Ratio 0.7 % 10/26/19 06:15 Prealbumin 0.030 g/L (0.200-0.400) L 10/15/19 04:32 [id number] See scanned result 10/11/19 Unknown [id number] See scanned result 10/11/19 Unknown Beta Globulins See scanned result 10/11/19 Unknown Gamma Globulins See scanned result 10/11/19 Unknown Abnorm Protein Band 1 see below 10/11/19 09:00 PEP Interpretation See scanned result 10/11/19 Unknown Triglycerides 185 mg/dL (2-149) H 10/26/19 06:15 Urine Color Yellow (Yellow) 10/26/19 Unknown Urine Turbidity Clear (Clear) 10/26/19 Unknown Urine pH 9.0 (5.0-7.0) H 10/26/19 Unknown Ur Specific [place] 1.011 (1.003-1.030) 10/26/19 Unknown Urine Protein 30 mg/dl mg/dL (Negative) 10/26/19 Unknown Urine Glucose (UA) Neg mg/dL (Negative) 10/26/19 Unknown Urine Ketones Neg mg/dL (Negative) 10/26/19 Unknown Urine Blood Neg (Negative) 10/26/19 Unknown Urine Nitrite Neg (Negative) 10/26/19 Unknown Urine Bilirubin Neg (Negative) 10/26/19 Unknown Urine Urobilinogen < 2.0 mg/dL (<2.0) 10/26/19 Unknown Ur Leukocyte Esterase Neg (Negative) 10/26/19 Unknown Urine WBC (Auto) 1.0 /HPF (0.0-6.0) 10/26/19 Unknown Urine RBC (Auto) 1.0 /HPF (0.0-6.0) 10/26/19 Unknown Urine Bacteria (Auto) 1+ /HPF (Negative) 10/11/19 06:23 Urine Mucus Few /HPF 10/26/19 Unknown Urine Eosinophils None seen (None Seen) 10/11/19 06:23 Ur Random Creatinine See scanned result 10/11/19 Unknown U Random Total Protein See scanned result 10/11/19 Unknown Urine Creatinine 116.8 mg/dL (0.1-20.0) H 10/11/19 06:23 Urine Creatinine 118.2 mg/dL (0.1-20.0) H 10/11/19 06:23 Protein/Creatinin Ratio See scanned result 10/11/19 Unknown Urine Sodium 14 mmol/L 10/11/19 06:23 Urine Total Protein 104 mg/dL (5-11.8) H 10/11/19 06:23 Urine Total Protein 105 mg/dL (5-11.8) H 10/11/19 06:23 U Abnormal Prot Band 1 See scanned result 10/11/19 Unknown U Abnormal Prot Band 2 See scanned result 10/11/19 Unknown U Abnormal Prot Band 3 See scanned result 10/11/19 Unknown Vancomycin Trough 5.7 ug/mL (5.0-20.0) 11/05/19 09:00 Random Vancomycin 9.6 ug/mL (0-40.0) 11/03/19 03:42 Digoxin 0.7 ng/mL (0.9-2.0) L 10/19/19 04:21 Blood Type A POSITIVE 11/21/19 13:32 Antibody Screen Negative 11/21/19 13:32 Crossmatch See Detail 11/21/19 13:32 Active Medications - Current Medications Current Medications: Generic Name Dose Route Start Last Admin Trade Name Freq PRN Reason Stop Dose Admin Acetaminophen 650 mg 10/25/19 13:00 11/20/19 03:52 Tylenol FEEDTUBE 650 mg Q4H PRN Administration Fever >100.5 Acetaminophen/Hydrocodone Bitart 7.5 mg 11/18/19 19:00 11/23/19 13:02 Hydrocodone/Apap 7.5-325 PO 7.5 mg Q4H PRN Administration Pain, Moderate (4-6) Albuterol/Ipratropium 1 ampul 11/23/19 08:00 11/23/19 20:46 Duoneb *Not For Prn Use* IH Not Given TIDRT VERÓNICA Amiodarone HCl 200 mg 10/23/19 13:00 11/23/19 10:24 Cordarone PO 200 mg QDAY VERÓNICA Administration Lipase/Protease/Amylase 1 each 10/20/19 10:37 Pancreaze 10,500 Unit FEEDTUBE PRN PRN For Clogged Feeding Tube Arformoterol Tartrate 15 mcg 10/06/19 08:30 11/23/19 20:46 Brovana Nebu IH 15 mcg Q12HRT VERÓNICA Administration Budesonide 0.5 mg 10/07/19 12:20 11/23/19 20:46 Pulmicort IH 0.5 mg Q12HRT VERÓNICA Administration Citalopram Hydrobromide 20 mg 10/27/19 12:00 11/23/19 10:24 Celexa PO 20 mg DAILY VERÓNICA Administration Diphenhydramine HCl 25 mg 11/17/19 20:15 11/17/19 20:58 Benadryl PO 25 mg Q6H PRN Administration Itching Enoxaparin Sodium 40 mg 11/05/19 22:00 11/22/19 22:55 Enoxaparin SUB-Q 40 mg QDAY@2200 VERÓNICA Administration Haloperidol Lactate 5 mg 10/25/19 18:22 11/12/19 03:33 Haldol IV 5 mg Q6H PRN Administration Agitation Hydralazine HCl 10 mg 10/28/19 14:09 11/02/19 15:34 Apresoline IV 10 mg Q4HR PRN Administration Hypertension Hydromorphone HCl 2 mg 10/25/19 12:35 11/19/19 10:41 Dilaudid IV 2 mg Q4H PRN Administration Pain , Severe (7-10) Insulin Human Lispro 0 unit 10/14/19 12:00 11/23/19 18:21 Humalog SUB-Q Not Given Q6HR [facility] Protocol Metoprolol Tartrate 2.5 mg 10/15/19 15:34 11/01/19 18:00 Metoprolol IV 2.5 mg Q4HR PRN Administration HR >130 Metoprolol Tartrate 12.5 mg 11/21/19 16:00 11/23/19 13:03 Metoprolol PO 12.5 mg Q8HR VERÓNICA Administration Multi-Ingred Cream/Lotion/Oil/Oint 1 applic 10/14/19 02:19 Artificial Tears Ophth Oint OU Q4HR PRN Dry Eye(s) Pantoprazole Sodium 40 mg 11/20/19 10:00 11/23/19 10:24 Protonix PO 40 mg DAILY VERÓNICA Administration Simple Syrup 15 ml 10/20/19 10:37 Simple Syrup FEEDTUBE PRN PRN Hypoglycemia Simple Syrup 30 ml 10/20/19 10:37 Simple Syrup FEEDTUBE PRN PRN Hypoglycemia Sodium Bicarbonate 325 mg 10/20/19 10:37 11/14/19 05:59 Sodium Bicarbonate FEEDTUBE 325 mg PRN PRN Administration For Clogged Feeding Tube Sodium Chloride 10 ml 11/07/19 19:32 11/23/19 10:27 Sodium Chloride Flush Syringe 10 Ml IV 10 ml PRN PRN Administration LINE FLUSH Zolpidem Tartrate 5 mg 11/10/19 21:00 11/11/19 03:30 Ambien FEEDTUBE 5 mg QHS PRN Administration Sleep Nutrition/Malnutrition Assess - Dietary Evaluation Nutrition/Malnutrition Findings: Nutrition Notes Start: 10/08/19 11:36 Freq: Status: Active Protocol: Document 11/22/19 12:23 JENN (Rec: 11/22/19 12:35 JENN [id number]) Co-Sign 11/22/19 12:23 LP Nutrition Notes Initial or Follow up Reassessment Current Diagnosis Acute Kidney Injury,COPD, Hypertension Other Pertinent Diagnosis intra-abdominal infection, disruption of bowel anastomosis, LE edema Current Diet Regular Labs/Tests Cr 0.5 Pertinent Medications Dilaudid Height 6 ft Weight 107.2 kg [place] Body Weight (kg) 80.90 BMI 32.0 Weight change and time frame Wt change noted. [facility]ibly inaccurate wt Weight Status Morbidly Obese Subjective/Other Information F/U for PO intakes. Pt stated his appetite was good. Pt ate about 75% of breakfast. Pt stated that he got outside food for all meals yesterday. Percent of energy/protein needs met: unable to determine Burn Absent Trauma Absent GI Symptoms None Current % PO Good (75-100%) Minimum of two criteria No Fluid Accumulation Mild (non-severe) #1 Nutrition Diagnosis Increased nutrient needs ( specify in comment below) Diagnosis Progress(for reassessment Continues documentation) Is patient on ventilator? No Is Patient Ambulatory and/or Out of Bed No REE-([place]-confined to bed) 2332.092 Kcal/Kg value to use for calculation 19 Approximate Energy Requirements Using 2037 kcal/Kg Calculation Used for Recommendations Kcal/kg Additional Notes Protein: 136-169g (1.2-1.5g/kg ) AdjBW 113kg Fluid 1 ml/kcal or per MD Nutrition Intervention Change Diet Order: Continue regular Goal #1 Meet at least 80% of energy and protein needs via PO intakes Anticipated Discharge Needs: Regular diet Follow-Up By: 11/29/19 Additional Comments F/U for PO intakes
[2019-11-23] MEDS: ENOXAPARIN 40 MG/0.4 ML INJ SUB-Q SCH (22:16)
[2019-11-24] MEDS: INSULIN LISPRO 100 UNIT/ML SUB-Q SCH ×4 (00:32→18:44)
[2019-11-24] MEDS: METOPROLOL TARTRATE 50 MG TAB PO SCH ×3 (06:21→21:03)
[2019-11-24] MEDS: BUDESONIDE 0.5 MG/2 ML NEBU IH SCH ×2 (09:19→21:15)
[2019-11-24] MEDS: IPRATROPIUM/ALBUTEROL SULFATE 3 ML AMPUL.NEB IH SCH ×3 (09:19→23:29)
[2019-11-24] MEDS: ARFORMOTEROL 15 MCG/2 ML NEBU IH SCH ×2 (09:19→21:16)
[2019-11-24] MEDS: PANTOPRAZOLE 40 MG TAB PO SCH (10:43)
[2019-11-24] MEDS: AMIODARONE 200 MG TAB PO SCH (10:43)
[2019-11-24] MEDS: CITALOPRAM 20 MG TAB PO SCH (10:43)
[2019-11-24] MEDS ORDERED: ACETAMINOPHEN 500 MG TAB PO PRN (11:08)
--- NOTE | 2019-11-24 11:12 | Progress Note ---
Assessment and Plan - Patient Problems (1) Dehiscence of closure of fascia, superficial or muscular Current Visit: No Status: Acute Qualifiers: Encounter type: initial encounter Qualified Code(s): T81.32XA - Disruption of internal operation (surgical) wound, not elsewhere classified, initial encounter Plan to address problem: Pt stable. s/p ex lap with closure of abdominal wall and wound vac placement (10/05) - POD#50; s/p Re-exploration, washout, transection of colon, Abthera placement - 10/13 - POD#42; s/p abd washout, partial omentectomy, partial colectomy with colostomy - 10/16 POD#39; s/p abd washout, feeding tube placement, AbThera placement - 10/19 - POD#36; Abdominal washout and closure - 10/22 - POD#33 Patient appears stable. Rec: 1) Neuro - self-extubated 11/04. 2) CV - BP normal today. Appreciate hospitalist help with transfusion and adjustment BP meds. 3) Resp - On NC. Small bore CT on left - removed 11/02. 4) GI - Ostomy looks good. Functioning. Sump drains - both are out now. Midline drain - seems to be working well. may eventually become main drain and we can remove the last left sided drain if the output is minimal. Wound Clinical Appeals Auditor - wound looked good on last check. Need to keep catheter in wound to stent open the drainage point. Ostomy - functioning. Gastric Port - May be used as needed for feeds or meds. Will most likely remove when he is scheduled to be transferred to acute rehab. 5) - BUN/Cr stable. 6) ID - Abx per ID. Enterococcus on cultures. If patient has worsening labs/vitals, then rescan and place additional drains as appropriate. Discussed Abx plan with Dr. Lorenzo. I am ok with trial off Abx, 7) Nutrition - Oral nutrition. Check prealbumin next Tuesday Passed Speech Eval. 8) DVT prophylaxis - SCDs. Lovenox 9) Family -no family at bedside. 10) PT - will need rehab. 11) Dispo - Ok for transfer to rehab from my perspective. Await Rehab decision on acceptance. Note: Spoke with [place] surgeon on 11/01/19 about possible transfer. They reviewed the notes that were sent and we discussed the case. They felt that they had nothing else to offer. They agreed with our management. Also agreed that another exploration should not be done. If needed, additional drains can be placed. They did suggest putting a [place] tube in the rectum to decompress that area. (That has been done). This conversation was communicated to the . Please call with questions. Subjective Date of service: 11/24/19 Patient Reports: Positive: no new complaints, other (reports that feeding tube does not bother him) Objective Vital Signs - 12hr 11/24/19 11/24/19 11/24/19 00:10 05:16 06:21 Temperature 99.7 F H 99.0 F Pulse Rate 82 93 H 94 H Pulse Rate [ Anterior Bilateral Throughout] Respiratory 18 20 Rate Respiratory Rate [Anterior Bilateral Throughout] Blood Pressure 114/51 109/49 109/49 O2 Sat by Pulse 95 91 Oximetry 11/24/19 11/24/19 11/24/19 08:00 08:03 09:20 Temperature 98.6 F Pulse Rate 83 Pulse Rate [ 85 Anterior Bilateral Throughout] Respiratory 18 Rate Respiratory 17 Rate [Anterior Bilateral Throughout] Blood Pressure 114/56 O2 Sat by Pulse 93 94 Oximetry - General physical appearance no distress, no pain, obese - Respiratory normal expansion, normal respiratory effort - Abdomen soft, tender (only at wound sites), not distended, not guarding, other (ostomy working well. wound global transportation manager in place) - Labs 11/22/19 08:13 11/21/19 07:40
--- NOTE | 2019-11-24 12:55 | Progress Note ---
Assessment and Plan Assessment and plan: Acute blood loss anemia -H/H has slowly trended down to 7.0 today. -Continue to monitor H&H and transfuse 1 unit PRBCs. Sepsis, improved. Completed Abx per ID. Dehiscence of closure of fascia s/p ex lap with closure of abdominal wall and wound vac placement 10/05 ; s/p Re-exploration, washout, transection of colon, Abthera placement -10/13; s/p abd washout, partial omentectomy, partial colectomy with colostomy - 10/16. s/p abd washout, feeding tube placement, AbThera placement - 10/19; Abdominal washout and closure - 10/22. Acute Respiratory failure with hypoxia -Extubated 10/25/19 -Re-intubated 10/30 -Patient self extubated morning of 11/04, now on Oxygen by NC -Multifactorial secondary to pneumonia, pneumothorax and COPD Left pneumothorax s/p chest tube placed 10/30 Resolved. Left lower lobe pneumonia -CTA chest showed left lower lobe consolidation with pleural effusion COPD -Stable -cont neb tx GUILLERMO on CKD -due to ATN due to sepsis -Resolved. -No hydronephrosis on CT Acute Toxic Metabolic Encephalopathy/Delirium Tremens. Resolved. -Continue CIWA protocol due to hx of ETOH abuse, 6packs a day -Head CT scan negative for acute findings SVT, Atrial fib/flutter with RVR -treated with adenosine x1 -off amiodarone and cardizem drip. On oral amiodarone -HR currently controlled -Cardiology following Hx of Hypertension -Stable Hyperlipidemia -stable Atypical chest pain -probably secondary to pneumonitis -troponin levels neg Hx of CT/CAD -s/p PCI of the circumflex and second vessel POBA of the distal LAD occlusion. Left ventricle fraction of 45-50%. Moderate Protein calorie malnutrition -Nutrition following Tobacco abuse -Cessation recommended Morbid obesity with BMI of 43.4 -Lifestyle modification recommended DVT and GI ppx: Lovenox/PPI Disposition. Plan is to discharge to acute rehab when accepted History Interval history: No new issues overnight. Hospitalist Physical - Constitutional Vitals: Temp Pulse Resp BP Pulse Ox 98.6 F 83 18 114/56 94 11/24/19 08:03 11/24/19 08:03 11/24/19 08:03 11/24/19 08:03 11/24/19 09:20 General appearance: Present: no acute distress, obese - EENT Eyes: Present: PERRL, EOM intact ENT: hearing intact, clear oral mucosa, dentition normal - Neck Neck: Present: supple, normal ROM - Respiratory Respiratory effort: normal Respiratory: bilateral: CTA - Cardiovascular Rhythm: regular Heart Sounds: Present: S1 & S2. Absent: gallop, rub - Extremities Extremities: no ischemia, No edema, Full ROM - Abdominal General gastrointestinal: soft, non-tender, non-distended, normal bowel sounds - Integumentary Integumentary: Present: clear, warm, dry - Neurologic Neurologic: CNII-XII intact, moves all extremities Results - Labs CBC & Chem 7: 11/22/19 08:13 11/21/19 07:40 Labs: Laboratory Last Values WBC 13.7 K/mm3 (4.5-11.0) H 11/22/19 08:13 RBC 2.99 M/mm3 (3.65-5.03) L 11/22/19 08:13 Hgb 8.2 gm/dl (11.8-15.2) L 11/22/19 08:13 Hct 24.7 % (35.5-45.6) L 11/22/19 08:13 MCV 83 fl (84-94) L 11/22/19 08:13 MCH 27 pg (28-32) L 11/22/19 08:13 MCHC 33 % (32-34) 11/22/19 08:13 RDW 16.5 % (13.2-15.2) H 11/22/19 08:13 Plt Count 428 K/mm3 (140-440) 11/22/19 08:13 Lymph % (Auto) 7.8 % (13.4-35.0) L 11/22/19 08:13 [place] % (Auto) 7.5 % (0.0-7.3) H 11/22/19 08:13 Eos % (Auto) 0.9 % (0.0-4.3) 11/22/19 08:13 Baso % (Auto) 0.5 % (0.0-1.8) 11/22/19 08:13 Lymph # 1.1 K/mm3 (1.2-5.4) L 01/09/20 08:13 [place] # 1.0 K/mm3 (0.0-0.8) H 11/22/19 08:13 Eos # 0.1 K/mm3 (0.0-0.4) 11/22/19 08:13 Baso # 0.1 K/mm3 (0.0-0.1) 11/22/19 08:13 Add Manual Diff Complete 10/16/19 09:20 Total Counted 100 10/16/19 09:20 Seg Neutrophils % 83.3 % (40.0-70.0) H 11/22/19 08:13 Seg Neuts % (Manual) 79.0 % (40.0-70.0) H 10/16/19 09:20 Band Neutrophils % 12.0 % 10/16/19 09:20 Lymphocytes % (Manual) 4.0 % (13.4-35.0) L 10/16/19 09:20 Reactive Lymphs % (Man) 0 % 10/16/19 09:20 Monocytes % (Manual) 2.0 % (0.0-7.3) 10/16/19 09:20 Eosinophils % (Manual) 0 % (0.0-4.3) 10/16/19 09:20 Basophils % (Manual) 0 % (0.0-1.8) 10/16/19 09:20 Metamyelocytes % 2.0 % 10/16/19 09:20 Myelocytes % 1.0 % 10/16/19 09:20 Promyelocytes % 0 % 10/16/19 09:20 Blast Cells % 0 % 10/16/19 09:20 Nucleated RBC % Not Reportable 10/16/19 09:20 Seg Neutrophils # 11.4 K/mm3 (1.8-7.7) H 11/22/19 08:13 Seg Neutrophils # Man 11.5 K/mm3 (1.8-7.7) H 10/16/19 09:20 Band Neutrophils # 1.8 K/mm3 10/16/19 09:20 Lymphocytes # (Manual) 0.6 K/mm3 (1.2-5.4) L 10/16/19 09:20 Abs React Lymphs (Man) 0.0 K/mm3 10/16/19 09:20 Monocytes # (Manual) 0.3 K/mm3 (0.0-0.8) 10/16/19 09:20 Eosinophils # (Manual) 0.0 K/mm3 (0.0-0.4) 10/16/19 09:20 Basophils # (Manual) 0.0 K/mm3 (0.0-0.1) 10/16/19 09:20 Metamyelocytes # 0.3 K/mm3 10/16/19 09:20 Myelocytes # 0.1 K/mm3 10/16/19 09:20 Promyelocytes # 0.0 K/mm3 10/16/19 09:20 Blast Cells # 0.0 K/mm3 10/16/19 09:20 WBC Morphology Not Reportable 10/16/19 09:20 Hypersegmented Neuts Not Reportable 10/16/19 09:20 Hyposegmented Neuts Not Reportable 10/16/19 09:20 Hypogranular Neuts Not Reportable 10/16/19 09:20 Smudge Cells Not Reportable 10/16/19 09:20 Toxic Granulation Not Reportable 10/16/19 09:20 Toxic Vacuolation Not Reportable 10/16/19 09:20 Dohle Bodies Not Reportable 10/16/19 09:20 Pelger-Huet Anomaly Not Reportable 10/16/19 09:20 Andres Rods Not Reportable 10/16/19 09:20 Platelet Estimate Consistent w auto 10/16/19 09:20 Clumped Platelets Not Reportable 10/16/19 09:20 Plt Clumps, EDTA Not Reportable 10/16/19 09:20 Large Platelets Not Reportable 10/16/19 09:20 Giant Platelets Not Reportable 10/16/19 09:20 Platelet Satelliting Not Reportable 10/16/19 09:20 Plt Morphology Comment Not Reportable 10/16/19 09:20 RBC Morphology Not Reportable 10/16/19 09:20 Dimorphic RBCs Not Reportable 10/16/19 09:20 Polychromasia Few 10/16/19 09:20 Hypochromasia Few 10/16/19 09:20 Poikilocytosis Not Reportable 10/16/19 09:20 Anisocytosis Not Reportable 10/16/19 09:20 Microcytosis Not Reportable 10/16/19 09:20 Macrocytosis Not Reportable 10/16/19 09:20 Spherocytes Not Reportable 10/16/19 09:20 Pappenheimer Bodies Not Reportable 10/16/19 09:20 Sickle Cells Not Reportable 10/16/19 09:20 Target Cells Few 10/16/19 09:20 Tear Drop Cells Not Reportable 10/16/19 09:20 Ovalocytes Not Reportable 10/16/19 09:20 Helmet Cells Not Reportable 10/16/19 09:20 Varghese-Hensley Bodies Not Reportable 10/16/19 09:20 [place] Rings Not Reportable 10/16/19 09:20 [place] Cells Not Reportable 10/16/19 09:20 Bite Cells Not Reportable 10/16/19 09:20 Crenated Cell Not Reportable 10/16/19 09:20 Elliptocytes Not Reportable 10/16/19 09:20 Acanthocytes (Spur) Not Reportable 10/16/19 09:20 Rouleaux Not Reportable 10/16/19 09:20 Hemoglobin C Crystals Not Reportable 10/16/19 09:20 Schistocytes Not Reportable 10/16/19 09:20 Malaria parasites Not Reportable 10/16/19 09:20 Toni Bodies Not Reportable 10/16/19 09:20 Hem Pathologist Commnt No 10/16/19 09:20 POC ABG pH 7.422 (7.35-7.45) 11/03/19 04:28 ABG pH 7.390 pH Units (7.350-7.450) 10/23/19 04:47 POC ABG pCO2 45.4 (35-45) H 11/03/19 04:28 ABG pCO2 48.4 mm Hg 10/23/19 04:47 POC ABG pO2 83 (80-105) 11/03/19 04:28 ABG pO2 68.9 mm Hg (80.0-90.0) L 10/23/19 04:47 POC ABG HCO3 29.6 (22-26 mml/L) 11/03/19 04:28 ABG HCO3 28.7 mmol/L (20.0-26.0) H 10/23/19 04:47 POC ABG Total CO2 31 (23-27mmol/L) 11/03/19 04:28 POC ABG O2 Sat 96 11/03/19 04:28 ABG O2 Saturation 96.6 % (95.0-99.0) 10/23/19 04:47 ABG O2 Content 8.8 (0.0-44) 10/23/19 04:47 POC ABG Base Excess 5 ((-2) - (+3)mmol/L) 11/03/19 04:28 ABG Base Excess 3.4 mmol/L (-2.0-3.0) H 10/23/19 04:47 ABG Hemoglobin 6.6 gm/dl (14.0-18.0) L 10/23/19 04:47 ABG Carboxyhemoglobin 2.1 % (0.0-5.0) 10/23/19 04:47 ABG Methemoglobin 0.5 % (0.0-1.5) 10/23/19 04:47 Oxyhemoglobin 94.1 % (95.0-99.0) L 10/23/19 04:47 FiO2 40 % 11/03/19 04:28 Sodium 138 mmol/L (137-145) 11/21/19 07:40 Potassium 3.6 mmol/L (3.6-5.0) 11/21/19 07:40 Chloride 99.7 mmol/L (98-107) 11/21/19 07:40 Carbon Dioxide 22 mmol/L (22-30) 11/21/19 07:40 Anion Gap 20 mmol/L 11/21/19 07:40 BUN 10 mg/dL (9-20) 11/21/19 07:40 Creatinine 0.5 mg/dL (0.8-1.5) L 11/21/19 07:40 Estimated GFR > 60 ml/min 11/21/19 07:40 BUN/Creatinine Ratio 20 % 11/21/19 07:40 Glucose 94 mg/dL (75-100) 11/21/19 07:40 POC Glucose 89 (70-105) 11/24/19 12:07 Hemoglobin A1c 5.7 % (4-6) 10/06/19 05:36 Lactic Acid 1.10 mmol/L (0.7-2.0) 10/13/19 04:20 Calcium 9.2 mg/dL (8.4-10.2) 11/21/19 07:40 Ionized Calcium 5.2 mg/dL (4.8-5.6) 10/18/19 07:41 Phosphorus 2.70 mg/dL (2.5-4.5) 11/02/19 12:43 Magnesium 2.40 mg/dL (1.7-2.3) H 11/02/19 12:43 Total Bilirubin 1.10 mg/dL (0.1-1.2) 10/26/19 06:15 Direct Bilirubin 0.7 mg/dL (0-0.2) H 10/23/19 10:44 Indirect Bilirubin 0.1 mg/dL 10/23/19 10:44 AST 23 units/L (5-40) 10/26/19 06:15 ALT 13 units/L (7-56) 10/26/19 06:15 Alkaline Phosphatase 148 units/L (35-129) H 10/26/19 06:15 Ammonia 49.0 umol/L (25-60) 10/13/19 04:20 Troponin T < 0.010 ng/mL (0.00-0.029) 10/09/19 17:23 C-Reactive Protein 30.60 mg/dL (0.00-1.30) H 10/15/19 04:32 Serum Total Protein 5.2 g/dL (6.1-8.1) L 10/11/19 09:00 Total Protein 5.9 g/dL (6.3-8.2) L 10/26/19 06:15 Albumin 2.4 g/dL (3.9-5) L 10/26/19 06:15 Albumin/Globulin Ratio 0.7 % 10/26/19 06:15 Prealbumin 0.030 g/L (0.200-0.400) L 10/15/19 04:32 [id number] See scanned result 10/11/19 Unknown [id number] See scanned result 10/11/19 Unknown Beta Globulins See scanned result 10/11/19 Unknown Gamma Globulins See scanned result 10/11/19 Unknown Abnorm Protein Band 1 see below 10/11/19 09:00 PEP Interpretation See scanned result 10/11/19 Unknown Triglycerides 185 mg/dL (2-149) H 10/26/19 06:15 Urine Color Yellow (Yellow) 10/26/19 Unknown Urine Turbidity Clear (Clear) 10/26/19 Unknown Urine pH 9.0 (5.0-7.0) H 10/26/19 Unknown Ur Specific [place] 1.011 (1.003-1.030) 10/26/19 Unknown Urine Protein 30 mg/dl mg/dL (Negative) 10/26/19 Unknown Urine Glucose (UA) Neg mg/dL (Negative) 10/26/19 Unknown Urine Ketones Neg mg/dL (Negative) 10/26/19 Unknown Urine Blood Neg (Negative) 10/26/19 Unknown Urine Nitrite Neg (Negative) 10/26/19 Unknown Urine Bilirubin Neg (Negative) 10/26/19 Unknown Urine Urobilinogen < 2.0 mg/dL (<2.0) 10/26/19 Unknown Ur Leukocyte Esterase Neg (Negative) 10/26/19 Unknown Urine WBC (Auto) 1.0 /HPF (0.0-6.0) 10/26/19 Unknown Urine RBC (Auto) 1.0 /HPF (0.0-6.0) 10/26/19 Unknown Urine Bacteria (Auto) 1+ /HPF (Negative) 10/11/19 06:23 Urine Mucus Few /HPF 10/26/19 Unknown Urine Eosinophils None seen (None Seen) 10/11/19 06:23 Ur Random Creatinine See scanned result 10/11/19 Unknown U Random Total Protein See scanned result 10/11/19 Unknown Urine Creatinine 116.8 mg/dL (0.1-20.0) H 10/11/19 06:23 Urine Creatinine 118.2 mg/dL (0.1-20.0) H 10/11/19 06:23 Protein/Creatinin Ratio See scanned result 10/11/19 Unknown Urine Sodium 14 mmol/L 10/11/19 06:23 Urine Total Protein 104 mg/dL (5-11.8) H 10/11/19 06:23 Urine Total Protein 105 mg/dL (5-11.8) H 10/11/19 06:23 U Abnormal Prot Band 1 See scanned result 10/11/19 Unknown U Abnormal Prot Band 2 See scanned result 10/11/19 Unknown U Abnormal Prot Band 3 See scanned result 10/11/19 Unknown Vancomycin Trough 5.7 ug/mL (5.0-20.0) 11/05/19 09:00 Random Vancomycin 9.6 ug/mL (0-40.0) 11/03/19 03:42 Digoxin 0.7 ng/mL (0.9-2.0) L 10/19/19 04:21 Blood Type A POSITIVE 11/21/19 13:32 Antibody Screen Negative 11/21/19 13:32 Crossmatch See Detail 11/21/19 13:32 Active Medications - Current Medications Current Medications: Generic Name Dose Route Start Last Admin Trade Name Freq PRN Reason Stop Dose Admin Acetaminophen 650 mg 11/24/19 12:28 Tylenol PO Q6H PRN Pain, Mild (1-3) Acetaminophen/Hydrocodone Bitart 1 each 11/24/19 12:27 [place] 10/325 PO Q6H PRN Pain, Moderate (4-6) Albuterol/Ipratropium 1 ampul 11/23/19 08:00 11/24/19 09:19 Duoneb *Not For Prn Use* IH Not Given TIDRT VERÓNICA Amiodarone HCl 200 mg 10/23/19 13:00 11/24/19 10:43 Cordarone PO 200 mg QDAY VERÓNICA Administration Lipase/Protease/Amylase 1 each 10/20/19 10:37 Pancreaze 10,500 Unit FEEDTUBE PRN PRN For Clogged Feeding Tube Arformoterol Tartrate 15 mcg 10/06/19 08:30 11/24/19 09:19 Brovana Nebu IH 15 mcg Q12HRT VERÓNICA Administration Budesonide 0.5 mg 10/07/19 12:20 11/24/19 09:19 Pulmicort IH 0.5 mg Q12HRT VERÓNICA Administration Citalopram Hydrobromide 20 mg 10/27/19 12:00 11/24/19 10:43 Celexa PO 20 mg DAILY VERÓNICA Administration Diphenhydramine HCl 25 mg 11/17/19 20:15 11/17/19 20:58 Benadryl PO 25 mg Q6H PRN Administration Itching Enoxaparin Sodium 40 mg 11/05/19 22:00 11/23/19 22:16 Enoxaparin SUB-Q 40 mg QDAY@2200 VERÓNICA Administration Haloperidol Lactate 5 mg 10/25/19 18:22 11/12/19 03:33 Haldol IV 5 mg Q6H PRN Administration Agitation Hydralazine HCl 10 mg 10/28/19 14:09 11/02/19 15:34 Apresoline IV 10 mg Q4HR PRN Administration Hypertension Hydromorphone HCl 1 mg 11/24/19 12:28 Dilaudid IV Q4H PRN Pain , Severe (7-10) Insulin Human Lispro 0 unit 10/14/19 12:00 11/24/19 06:18 Humalog SUB-Q Not Given Q6HR [facility] Protocol Metoprolol Tartrate 2.5 mg 10/15/19 15:34 11/01/19 18:00 Metoprolol IV 2.5 mg Q4HR PRN Administration HR >130 Metoprolol Tartrate 12.5 mg 11/21/19 16:00 11/24/19 06:21 Metoprolol PO 12.5 mg Q8HR VERÓNICA Administration Multi-Ingred Cream/Lotion/Oil/Oint 1 applic 10/14/19 02:19 Artificial Tears Ophth Oint OU Q4HR PRN Dry Eye(s) Pantoprazole Sodium 40 mg 11/20/19 10:00 11/24/19 10:43 Protonix PO 40 mg DAILY VERÓNICA Administration Simple Syrup 15 ml 10/20/19 10:37 Simple Syrup FEEDTUBE PRN PRN Hypoglycemia Simple Syrup 30 ml 10/20/19 10:37 Simple Syrup FEEDTUBE PRN PRN Hypoglycemia Sodium Bicarbonate 325 mg 10/20/19 10:37 11/14/19 05:59 Sodium Bicarbonate FEEDTUBE 325 mg PRN PRN Administration For Clogged Feeding Tube Sodium Chloride 10 ml 11/07/19 19:32 11/23/19 10:27 Sodium Chloride Flush Syringe 10 Ml IV 10 ml PRN PRN Administration LINE FLUSH Zolpidem Tartrate 5 mg 11/10/19 21:00 11/11/19 03:30 Ambien FEEDTUBE 5 mg QHS PRN Administration Sleep Nutrition/Malnutrition Assess - Dietary Evaluation Nutrition/Malnutrition Findings: Nutrition Notes Start: 10/08/19 11:36 Freq: Status: Active Protocol: Document 11/22/19 12:23 JENN (Rec: 11/22/19 12:35 JENN [id number]) Co-Sign 11/22/19 12:23 LP Nutrition Notes Initial or Follow up Reassessment Current Diagnosis Acute Kidney Injury,COPD, Hypertension Other Pertinent Diagnosis intra-abdominal infection, disruption of bowel anastomosis, LE edema Current Diet Regular Labs/Tests Cr 0.5 Pertinent Medications Dilaudid Height 6 ft Weight 107.2 kg [place] Body Weight (kg) 80.90 BMI 32.0 Weight change and time frame [facility]t change noted. [facility] wt Weight Status Morbidly Obese Subjective/Other Information F/U for PO intakes. Pt stated his appetite was good. Pt ate about 75% of breakfast. Pt stated that he got outside food for all meals yesterday. Percent of energy/protein needs met: unable to determine Burn Absent Trauma Absent GI Symptoms None Current % PO Good (75-100%) Minimum of two criteria No Fluid Accumulation Mild (non-severe) #1 Nutrition Diagnosis Increased nutrient needs ( specify in comment below) Diagnosis Progress(for reassessment Continues documentation) Is patient on ventilator? No Is Patient Ambulatory and/or Out of Bed No REE-(King-St. Jeor-confined to bed) 2332.092 Kcal/Kg value to use for calculation 19 Approximate Energy Requirements Using 2037 kcal/Kg Calculation Used for Recommendations Kcal/kg Additional Notes Protein: 136-169g (1.2-1.5g/kg ) AdjBW 113kg Fluid 1 ml/kcal or per MD Nutrition Intervention Change Diet Order: Continue regular Goal #1 Meet at least 80% of energy and protein needs via PO intakes Anticipated Discharge Needs: Regular diet Follow-Up By: 11/29/19 Additional Comments F/U for PO intakes
[2019-11-24] MEDS: HYDROcodone/ACETAMINOPHEN 10-325MG TAB PO PRN ×2 (13:03→21:06)
--- NOTE | 2019-11-24 13:08 | Progress Note ---
Assessment and Plan - Patient Problems (1) Physical deconditioning Current Visit: Yes Status: Acute (2) Wound dehiscence Current Visit: Yes Status: Acute (3) COPD (chronic obstructive pulmonary disease) Current Visit: Yes Status: Deleted Qualifiers: COPD type: unspecified COPD Qualified Code(s): J44.9 - Chronic obstructive pulmonary disease, unspecified (4) Acute exacerbation of chronic obstructive pulmonary disease (COPD) Current Visit: No Status: Acute (5) CAP (community acquired pneumonia) Current Visit: No Status: Acute (6) Postprocedural intra-abdominal sepsis Current Visit: Yes Status: Acute (7) Tachycardia determined by examination of pulse Current Visit: Yes Status: Acute (8) Tachycardia with greater than 160 beats per minute Current Visit: Yes Status: Acute (9) Sepsis Current Visit: No Status: Acute Qualifiers: Sepsis type: sepsis due to unspecified organism Qualified Code(s): A41.9 - Sepsis, unspecified organism Subjective Principal diagnosis: acute renal failure Interval history: awake no sob Objective Vital Signs - 12hr 11/24/19 11/24/19 11/24/19 05:16 06:21 08:00 Temperature 99.0 F Pulse Rate 93 H 94 H Pulse Rate [ 85 Anterior Bilateral Throughout] Respiratory 20 Rate Respiratory 17 Rate [Anterior Bilateral Throughout] Blood Pressure 109/49 109/49 O2 Sat by Pulse 91 Oximetry 11/24/19 11/24/19 08:03 09:20 Temperature 98.6 F Pulse Rate 83 Pulse Rate [ Anterior Bilateral Throughout] Respiratory 18 Rate Respiratory Rate [Anterior Bilateral Throughout] Blood Pressure 114/56 O2 Sat by Pulse 93 94 Oximetry Constitutional: no acute distress, alert, other (obese) Eyes: non-icteric ENT: oropharynx moist Neck: supple Effort: normal Ascultation: Bilateral: diminished breath sounds (bases) Cardiovascular: regular rate and rhythm (no mrg) Gastrointestinal: tender, other (obese, distended, ostomy in place; wound vac in place) Integumentary: normal Extremities: no cyanosis, pink and warm, edema (1+ bilateral LE edema) Neurologic: normal mental status, non-focal exam, pupils equal and round Psychiatric: mood appropriate, affect normal CBC and BMP: 11/22/19 08:13 11/21/19 07:40 ABG, PT/INR, D-dimer: ABG POC ABG pH 7.422 (7.35-7.45) 11/03/19 04:28 ABG pH 7.390 pH Units (7.350-7.450) 10/23/19 04:47 POC ABG pCO2 45.4 (35-45) H 11/03/19 04:28 ABG pCO2 48.4 mm Hg 10/23/19 04:47 POC ABG pO2 83 (80-105) 11/03/19 04:28 ABG pO2 68.9 mm Hg (80.0-90.0) L 10/23/19 04:47 POC ABG HCO3 29.6 (22-26 mml/L) 11/03/19 04:28 POC ABG Total CO2 31 (23-27mmol/L) 11/03/19 04:28 POC ABG O2 Sat 96 11/03/19 04:28 ABG O2 Saturation 96.6 % (95.0-99.0) 10/23/19 04:47 Abnormal lab findings: Abnormal Labs 10/06/19 10/06/19 10/07/19 05:36 05:36 05:54 WBC 21.8 H 21.5 H RBC 3.55 L Hgb 10.9 L Hct 32.7 L MCV MCH MCHC RDW Plt Count Lymph % (Auto) [place] % (Auto) Lymph # [place] # Seg Neutrophils % Seg Neuts % (Manual) 91.0 H Lymphocytes % (Manual) 2.0 L Seg Neutrophils # Seg Neutrophils # Man 19.8 H Lymphocytes # (Manual) 0.4 L Monocytes # (Manual) 1.1 H POC ABG pH ABG pH POC ABG pCO2 POC ABG pO2 ABG pO2 ABG HCO3 ABG Base Excess ABG Hemoglobin Oxyhemoglobin Sodium 135 L Potassium Chloride 95.9 L Carbon Dioxide BUN Creatinine 0.7 L Glucose POC Glucose Calcium Phosphorus Magnesium Direct Bilirubin AST Alkaline Phosphatase C-Reactive Protein Serum Total Protein Total Protein 5.7 L Albumin 2.5 L Prealbumin Uqjwp-5-Npvkfpfig Xgrjz-0-Oshtyxnon Gamma Globulins PEP Interpretation Triglycerides Urine pH Urine Creatinine Urine Total Protein Vancomycin Trough Digoxin Crossmatch 10/07/19 10/09/19 10/09/19 05:54 10:52 10:52 WBC 16.6 H RBC Hgb Hct MCV MCH MCHC RDW Plt Count 498 H Lymph % (Auto) [place] % (Auto) Lymph # [place] # Seg Neutrophils % Seg Neuts % (Manual) 93.0 H Lymphocytes % (Manual) 5.0 L Seg Neutrophils # Seg Neutrophils # Man 15.4 H Lymphocytes # (Manual) 0.8 L Monocytes # (Manual) POC ABG pH ABG pH POC ABG pCO2 POC ABG pO2 ABG pO2 ABG HCO3 ABG Base Excess ABG Hemoglobin Oxyhemoglobin Sodium Potassium Chloride 97.9 L Carbon Dioxide 20 L D BUN 23 H Creatinine 1.7 H D Glucose 109 H POC Glucose Calcium 8.1 L Phosphorus Magnesium Direct Bilirubin AST Alkaline Phosphatase C-Reactive Protein Serum Total Protein Total Protein Albumin Prealbumin Xnejg-0-Xckpftgyf Oguph-6-Goxylgbyc Gamma Globulins PEP Interpretation Triglycerides Urine pH Urine Creatinine Urine Total Protein Vancomycin Trough Digoxin Crossmatch 10/09/19 10/10/19 10/10/19 17:23 05:30 05:30 WBC 14.6 H RBC Hgb 11.1 L Hct 33.5 L MCV MCH MCHC RDW Plt Count 527 H Lymph % (Auto) [place] % (Auto) Lymph # [place] # Seg Neutrophils % Seg Neuts % (Manual) Lymphocytes % (Manual) Seg Neutrophils # Seg Neutrophils # Man Lymphocytes # (Manual) Monocytes # (Manual) POC ABG pH ABG pH POC ABG pCO2 POC ABG pO2 ABG pO2 ABG HCO3 ABG Base Excess ABG Hemoglobin Oxyhemoglobin Sodium 130 L D Potassium 5.1 H Chloride 90.0 L 91.0 L Carbon Dioxide 20 L 20 L BUN 27 H 35 H Creatinine 1.9 H 2.0 H Glucose 104 H POC Glucose Calcium Phosphorus Magnesium Direct Bilirubin AST Alkaline Phosphatase C-Reactive Protein Serum Total Protein Total Protein Albumin Prealbumin Qzqoq-0-Jvmujsucm Mteoj-8-Mojvzmnpo Gamma Globulins PEP Interpretation Triglycerides Urine pH Urine Creatinine Urine Total Protein Vancomycin Trough Digoxin Crossmatch 10/10/19 10/10/19 10/11/19 08:33 08:44 05:41 WBC 13.2 H RBC Hgb 11.3 L Hct 33.8 L MCV MCH MCHC RDW 15.3 H Plt Count 543 H Lymph % (Auto) [place] % (Auto) Lymph # [place] # Seg Neutrophils % Seg Neuts % (Manual) Lymphocytes % (Manual) Seg Neutrophils # Seg Neutrophils # Man Lymphocytes # (Manual) Monocytes # (Manual) POC ABG pH ABG pH POC ABG pCO2 POC ABG pO2 ABG pO2 ABG HCO3 ABG Base Excess ABG Hemoglobin Oxyhemoglobin Sodium Potassium Chloride Carbon Dioxide BUN Creatinine Glucose 113 H POC Glucose 117 H Calcium Phosphorus Magnesium Direct Bilirubin AST Alkaline Phosphatase C-Reactive Protein Serum Total Protein Total Protein Albumin Prealbumin Mzvxa-0-Cqduxzyfu Zqyvb-4-Kcekolcds Gamma Globulins PEP Interpretation Triglycerides Urine pH Urine Creatinine Urine Total Protein Vancomycin Trough Digoxin Crossmatch 10/11/19 10/11/19 10/11/19 05:41 06:23 06:23 WBC RBC Hgb Hct MCV MCH MCHC RDW Plt Count Lymph % (Auto) [place] % (Auto) Lymph # [place] # Seg Neutrophils % Seg Neuts % (Manual) Lymphocytes % (Manual) Seg Neutrophils # Seg Neutrophils # Man Lymphocytes # (Manual) Monocytes # (Manual) POC ABG pH ABG pH POC ABG pCO2 POC ABG pO2 ABG pO2 ABG HCO3 ABG Base Excess ABG Hemoglobin Oxyhemoglobin Sodium 134 L Potassium Chloride 96.3 L Carbon Dioxide BUN 37 H Creatinine Glucose 58 L POC Glucose Calcium Phosphorus 4.90 H Magnesium Direct Bilirubin AST Alkaline Phosphatase C-Reactive Protein Serum Total Protein Total Protein Albumin Prealbumin Hezew-2-Biwmmgaom Kgaze-9-Qhevpuoea Gamma Globulins PEP Interpretation Triglycerides Urine pH Urine Creatinine 118.2 H 116.8 H Urine Total Protein 105 H 104 H Vancomycin Trough Digoxin Crossmatch 10/11/19 10/12/19 10/12/19 09:00 06:09 06:09 WBC 13.8 H RBC 3.39 L Hgb 10.2 L Hct 30.9 L MCV MCH MCHC RDW 15.5 H Plt Count 459 H Lymph % (Auto) [place] % (Auto) Lymph # [place] # Seg Neutrophils % Seg Neuts % (Manual) Lymphocytes % (Manual) Seg Neutrophils # Seg Neutrophils # Man Lymphocytes # (Manual) Monocytes # (Manual) POC ABG pH ABG pH POC ABG pCO2 POC ABG pO2 ABG pO2 ABG HCO3 ABG Base Excess ABG Hemoglobin Oxyhemoglobin Sodium 131 L Potassium Chloride 96.2 L Carbon Dioxide 21 L BUN 43 H Creatinine Glucose 72 L POC Glucose Calcium Phosphorus Magnesium Direct Bilirubin AST Alkaline Phosphatase C-Reactive Protein Serum Total Protein 5.2 L Total Protein Albumin 1.9 L Prealbumin Anynq-1-Qooroyghf 0.9 H Lllwh-9-Grbklebqk 1.0 H Gamma Globulins 0.7 L PEP Interpretation see below H Triglycerides Urine pH Urine Creatinine Urine Total Protein Vancomycin Trough Digoxin Crossmatch 10/12/19 10/12/19 10/12/19 08:20 09:30 09:30 WBC RBC Hgb Hct MCV MCH MCHC RDW Plt Count Lymph % (Auto) [place] % (Auto) Lymph # [place] # Seg Neutrophils % Seg Neuts % (Manual) Lymphocytes % (Manual) Seg Neutrophils # Seg Neutrophils # Man Lymphocytes # (Manual) Monocytes # (Manual) POC ABG pH ABG pH POC ABG pCO2 POC ABG pO2 63 L ABG pO2 ABG HCO3 ABG Base Excess ABG Hemoglobin Oxyhemoglobin Sodium Potassium Chloride Carbon Dioxide BUN Creatinine Glucose POC Glucose Calcium Phosphorus Magnesium 2.50 H Direct Bilirubin 0.3 H AST Alkaline Phosphatase C-Reactive Protein Serum Total Protein Total Protein 5.1 L Albumin 2.2 L Prealbumin Tjezt-5-Mtmfyrjpf Dvhwl-3-Fyrapskof Gamma Globulins PEP Interpretation Triglycerides Urine pH Urine Creatinine Urine Total Protein Vancomycin Trough Digoxin Crossmatch 10/13/19 10/13/19 10/13/19 04:20 04:20 13:20 WBC 15.7 H RBC 3.64 L Hgb 10.9 L Hct 33.1 L MCV MCH MCHC RDW 15.8 H Plt Count 488 H Lymph % (Auto) [place] % (Auto) Lymph # [place] # Seg Neutrophils % Seg Neuts % (Manual) Lymphocytes % (Manual) Seg Neutrophils # Seg Neutrophils # Man Lymphocytes # (Manual) Monocytes # (Manual) POC ABG pH ABG pH POC ABG pCO2 POC ABG pO2 ABG pO2 ABG HCO3 ABG Base Excess ABG Hemoglobin Oxyhemoglobin Sodium Potassium Chloride Carbon Dioxide BUN 28 H Creatinine Glucose POC Glucose Calcium Phosphorus Magnesium Direct Bilirubin AST Alkaline Phosphatase C-Reactive Protein Serum Total Protein Total Protein Albumin Prealbumin Awrmm-8-Eojwewska Lgeug-7-Tswfpmmqa Gamma Globulins PEP Interpretation Triglycerides Urine pH Urine Creatinine Urine Total Protein Vancomycin Trough Digoxin Crossmatch See Detail 10/13/19 10/13/19 10/14/19 18:24 20:05 04:47 WBC 24.2 H RBC Hgb 10.9 L Hct 34.2 L MCV MCH MCHC RDW 17.0 H Plt Count 442 H Lymph % (Auto) [place] % (Auto) Lymph # [place] # Seg Neutrophils % Seg Neuts % (Manual) Lymphocytes % (Manual) Seg Neutrophils # Seg Neutrophils # Man Lymphocytes # (Manual) Monocytes # (Manual) POC ABG pH ABG pH 7.180 L* 7.278 L POC ABG pCO2 POC ABG pO2 ABG pO2 130.7 H ABG HCO3 ABG Base Excess -6.5 L -6.5 L ABG Hemoglobin 12.2 L 12.3 L Oxyhemoglobin 92.9 L Sodium Potassium Chloride Carbon Dioxide BUN Creatinine Glucose POC Glucose Calcium Phosphorus Magnesium Direct Bilirubin AST Alkaline Phosphatase C-Reactive Protein Serum Total Protein Total Protein Albumin Prealbumin Zikbl-4-Oiajnalga Rxfnd-0-Mfsipmkkv Gamma Globulins PEP Interpretation Triglycerides Urine pH Urine Creatinine Urine Total Protein Vancomycin Trough Digoxin Crossmatch 10/14/19 10/14/19 10/14/19 04:47 05:40 10:14 WBC RBC Hgb Hct MCV MCH MCHC RDW Plt Count Lymph % (Auto) [place] % (Auto) Lymph # [place] # Seg Neutrophils % Seg Neuts % (Manual) Lymphocytes % (Manual) Seg Neutrophils # Seg Neutrophils # Man Lymphocytes # (Manual) Monocytes # (Manual) POC ABG pH ABG pH POC ABG pCO2 POC ABG pO2 ABG pO2 76.3 L ABG HCO3 19.1 L ABG Base Excess -5.8 L ABG Hemoglobin 10.9 L Oxyhemoglobin 93.4 L Sodium Potassium 5.1 H D Chloride 109.2 H Carbon Dioxide 17 L BUN 38 H Creatinine 1.8 H D Glucose 104 H POC Glucose Calcium 7.4 L Phosphorus 5.60 H Magnesium Direct Bilirubin AST Alkaline Phosphatase C-Reactive Protein Serum Total Protein Total Protein Albumin Prealbumin Fpnqn-3-Myzucfhmy Guluw-9-Fsfcxtafb Gamma Globulins PEP Interpretation Triglycerides Urine pH Urine Creatinine Urine Total Protein Vancomycin Trough Digoxin Crossmatch 10/14/19 10/15/19 10/15/19 23:46 04:32 04:32 WBC 15.5 H RBC 2.89 L Hgb 8.8 L Hct 27.3 L D MCV MCH MCHC RDW 16.6 H Plt Count Lymph % (Auto) [place] % (Auto) Lymph # [place] # Seg Neutrophils % Seg Neuts % (Manual) Lymphocytes % (Manual) Seg Neutrophils # Seg Neutrophils # Man Lymphocytes # (Manual) Monocytes # (Manual) POC ABG pH ABG pH POC ABG pCO2 POC ABG pO2 ABG pO2 ABG HCO3 ABG Base Excess ABG Hemoglobin Oxyhemoglobin Sodium 147 H Potassium Chloride 114.0 H Carbon Dioxide 19 L BUN 42 H Creatinine Glucose 112 H POC Glucose 113 H Calcium 7.3 L Phosphorus Magnesium Direct Bilirubin AST 72 H Alkaline Phosphatase C-Reactive Protein 30.60 H Serum Total Protein Total Protein 4.0 L D Albumin 1.7 L Prealbumin 0.030 L Hsqzc-1-Bwzzliryd Zeqrv-9-Suarcgspk Gamma Globulins PEP Interpretation Triglycerides Urine pH Urine Creatinine Urine Total Protein Vancomycin Trough Digoxin Crossmatch 10/15/19 10/15/19 10/15/19 05:30 12:08 17:23 WBC RBC Hgb Hct MCV MCH MCHC RDW Plt Count Lymph % (Auto) [place] % (Auto) Lymph # [place] # Seg Neutrophils % Seg Neuts % (Manual) Lymphocytes % (Manual) Seg Neutrophils # Seg Neutrophils # Man Lymphocytes # (Manual) Monocytes # (Manual) POC ABG pH ABG pH 7.296 L POC ABG pCO2 POC ABG pO2 ABG pO2 114.7 H ABG HCO3 ABG Base Excess -3.7 L ABG Hemoglobin 8.9 L Oxyhemoglobin Sodium Potassium Chloride Carbon Dioxide BUN Creatinine Glucose POC Glucose 106 H 106 H Calcium Phosphorus Magnesium Direct Bilirubin AST Alkaline Phosphatase C-Reactive Protein Serum Total Protein Total Protein Albumin Prealbumin Nywsu-6-Xuneunrbo Uybts-7-Xnkkeuntg Gamma Globulins PEP Interpretation Triglycerides Urine pH Urine Creatinine Urine Total Protein Vancomycin Trough Digoxin Crossmatch 10/16/19 10/16/19 10/16/19 00:07 04:44 05:24 WBC RBC Hgb Hct MCV MCH MCHC RDW Plt Count Lymph % (Auto) [place] % (Auto) Lymph # [place] # Seg Neutrophils % Seg Neuts % (Manual) Lymphocytes % (Manual) Seg Neutrophils # Seg Neutrophils # Man Lymphocytes # (Manual) Monocytes # (Manual) POC ABG pH ABG pH POC ABG pCO2 POC ABG pO2 ABG pO2 ABG HCO3 ABG Base Excess ABG Hemoglobin Oxyhemoglobin Sodium 150 H Potassium Chloride 115.8 H Carbon Dioxide BUN 35 H Creatinine Glucose 129 H POC Glucose 119 H 129 H Calcium 7.3 L Phosphorus 1.80 L D Magnesium Direct Bilirubin AST Alkaline Phosphatase C-Reactive Protein Serum Total Protein Total Protein Albumin Prealbumin Eexol-3-Kezgajpuf Sbrih-4-Cjptouzcr Gamma Globulins PEP Interpretation Triglycerides Urine pH Urine Creatinine Urine Total Protein Vancomycin Trough Digoxin Crossmatch 10/16/19 10/16/19 10/16/19 06:53 09:20 11:58 WBC 14.6 H RBC 2.70 L Hgb 8.1 L Hct 25.2 L MCV MCH MCHC RDW 16.7 H Plt Count Lymph % (Auto) [place] % (Auto) Lymph # [place] # Seg Neutrophils % Seg Neuts % (Manual) 79.0 H Lymphocytes % (Manual) 4.0 L Seg Neutrophils # Seg Neutrophils # Man 11.5 H Lymphocytes # (Manual) 0.6 L Monocytes # (Manual) POC ABG pH ABG pH POC ABG pCO2 47.0 H POC ABG pO2 ABG pO2 ABG HCO3 ABG Base Excess ABG Hemoglobin Oxyhemoglobin Sodium Potassium Chloride Carbon Dioxide BUN Creatinine Glucose POC Glucose Calcium Phosphorus Magnesium Direct Bilirubin AST Alkaline Phosphatase C-Reactive Protein Serum Total Protein Total Protein Albumin Prealbumin Ianic-7-Alnlxzirg Dvvxa-1-Hffhzhkra Gamma Globulins PEP Interpretation Triglycerides Urine pH Urine Creatinine Urine Total Protein Vancomycin Trough Digoxin Crossmatch See Detail 10/16/19 10/16/19 10/16/19 15:23 17:50 23:58 WBC RBC Hgb Hct MCV MCH MCHC RDW Plt Count Lymph % (Auto) [place] % (Auto) Lymph # [place] # Seg Neutrophils % Seg Neuts % (Manual) Lymphocytes % (Manual) Seg Neutrophils # Seg Neutrophils # Man Lymphocytes # (Manual) Monocytes # (Manual) POC ABG pH ABG pH POC ABG pCO2 POC ABG pO2 ABG pO2 ABG HCO3 ABG Base Excess ABG Hemoglobin Oxyhemoglobin Sodium Potassium Chloride Carbon Dioxide BUN Creatinine Glucose POC Glucose 221 H 201 H 179 H Calcium Phosphorus Magnesium Direct Bilirubin AST Alkaline Phosphatase C-Reactive Protein Serum Total Protein Total Protein Albumin Prealbumin Vkpdk-2-Cjcirinlf Briuk-9-Iqbzeycly Gamma Globulins PEP Interpretation Triglycerides Urine pH Urine Creatinine Urine Total Protein Vancomycin Trough Digoxin Crossmatch 10/17/19 10/17/19 10/17/19 04:08 04:08 05:41 WBC 22.3 H RBC 3.35 L Hgb 10.0 L Hct 31.2 L D MCV MCH MCHC RDW 16.1 H Plt Count Lymph % (Auto) [place] % (Auto) Lymph # [place] # Seg Neutrophils % Seg Neuts % (Manual) Lymphocytes % (Manual) Seg Neutrophils # Seg Neutrophils # Man Lymphocytes # (Manual) Monocytes # (Manual) POC ABG pH 7.310 L ABG pH POC ABG pCO2 52.8 H POC ABG pO2 70 L ABG pO2 ABG HCO3 ABG Base Excess ABG Hemoglobin Oxyhemoglobin Sodium 147 H Potassium Chloride 114.9 H Carbon Dioxide BUN 36 H Creatinine Glucose 165 H POC Glucose Calcium 6.9 L Phosphorus 2.20 L D Magnesium Direct Bilirubin AST Alkaline Phosphatase C-Reactive Protein Serum Total Protein Total Protein Albumin Prealbumin Ebmwi-6-Gsosejtnw Ssxqv-0-Jqbxaydgk Gamma Globulins PEP Interpretation Triglycerides Urine pH Urine Creatinine Urine Total Protein Vancomycin Trough Digoxin Crossmatch 10/17/19 10/17/19 10/17/19 05:42 11:33 18:17 WBC RBC Hgb Hct MCV MCH MCHC RDW Plt Count Lymph % (Auto) [place] % (Auto) Lymph # [place] # Seg Neutrophils % Seg Neuts % (Manual) Lymphocytes % (Manual) Seg Neutrophils # Seg Neutrophils # Man Lymphocytes # (Manual) Monocytes # (Manual) POC ABG pH ABG pH POC ABG pCO2 POC ABG pO2 ABG pO2 ABG HCO3 ABG Base Excess ABG Hemoglobin Oxyhemoglobin Sodium Potassium Chloride Carbon Dioxide BUN Creatinine Glucose POC Glucose 149 H 154 H 163 H Calcium Phosphorus Magnesium Direct Bilirubin AST Alkaline Phosphatase C-Reactive Protein Serum Total Protein Total Protein Albumin Prealbumin Hllkl-3-Bivgqdxka Zamlj-9-Kewfuqxmf Gamma Globulins PEP Interpretation Triglycerides Urine pH Urine Creatinine Urine Total Protein Vancomycin Trough Digoxin Crossmatch 10/17/19 10/18/19 10/18/19 23:34 03:29 04:50 WBC RBC Hgb Hct MCV MCH MCHC RDW Plt Count Lymph % (Auto) [place] % (Auto) Lymph # [place] # Seg Neutrophils % Seg Neuts % (Manual) Lymphocytes % (Manual) Seg Neutrophils # Seg Neutrophils # Man Lymphocytes # (Manual) Monocytes # (Manual) POC ABG pH ABG pH POC ABG pCO2 POC ABG pO2 ABG pO2 78.8 L ABG HCO3 ABG Base Excess ABG Hemoglobin 8.8 L Oxyhemoglobin Sodium Potassium Chloride 111.8 H Carbon Dioxide BUN 27 H Creatinine 0.6 L Glucose 140 H POC Glucose 135 H Calcium 7.1 L Phosphorus 1.80 L Magnesium Direct Bilirubin AST Alkaline Phosphatase C-Reactive Protein Serum Total Protein Total Protein Albumin Prealbumin Wdxqb-6-Afngcnmhh Tmkiz-2-Cmhbnjccj Gamma Globulins PEP Interpretation Triglycerides Urine pH Urine Creatinine Urine Total Protein Vancomycin Trough Digoxin Crossmatch 10/18/19 10/18/19 10/18/19 05:45 11:19 18:26 WBC RBC Hgb Hct MCV MCH MCHC RDW Plt Count Lymph % (Auto) [place] % (Auto) Lymph # [place] # Seg Neutrophils % Seg Neuts % (Manual) Lymphocytes % (Manual) Seg Neutrophils # Seg Neutrophils # Man Lymphocytes # (Manual) Monocytes # (Manual) POC ABG pH ABG pH POC ABG pCO2 POC ABG pO2 ABG pO2 ABG HCO3 ABG Base Excess ABG Hemoglobin Oxyhemoglobin Sodium Potassium Chloride Carbon Dioxide BUN Creatinine Glucose POC Glucose 145 H 152 H 125 H Calcium Phosphorus Magnesium Direct Bilirubin AST Alkaline Phosphatase C-Reactive Protein Serum Total Protein Total Protein Albumin Prealbumin Lekoz-1-Tsdsqeokc Vjhyy-1-Lrylnsmpy Gamma Globulins PEP Interpretation Triglycerides Urine pH Urine Creatinine Urine Total Protein Vancomycin Trough Digoxin Crossmatch 10/18/19 10/19/19 10/19/19 23:27 04:21 04:21 WBC RBC Hgb Hct MCV MCH MCHC RDW Plt Count Lymph % (Auto) [place] % (Auto) Lymph # [place] # Seg Neutrophils % Seg Neuts % (Manual) Lymphocytes % (Manual) Seg Neutrophils # Seg Neutrophils # Man Lymphocytes # (Manual) Monocytes # (Manual) POC ABG pH ABG pH POC ABG pCO2 POC ABG pO2 ABG pO2 ABG HCO3 ABG Base Excess ABG Hemoglobin Oxyhemoglobin Sodium Potassium Chloride 108.4 H Carbon Dioxide BUN 22 H Creatinine 0.5 L Glucose 123 H POC Glucose 127 H Calcium 7.4 L Phosphorus 1.80 L Magnesium Direct Bilirubin AST Alkaline Phosphatase C-Reactive Protein Serum Total Protein Total Protein Albumin Prealbumin Swqbm-9-Klgujgvgm Ekkdw-3-Mwxyexhqx Gamma Globulins PEP Interpretation Triglycerides Urine pH Urine Creatinine Urine Total Protein Vancomycin Trough Digoxin 0.7 L Crossmatch 10/19/19 10/19/19 10/19/19 05:00 05:35 11:26 WBC RBC Hgb Hct MCV MCH MCHC RDW Plt Count Lymph % (Auto) [place] % (Auto) Lymph # [place] # Seg Neutrophils % Seg Neuts % (Manual) Lymphocytes % (Manual) Seg Neutrophils # Seg Neutrophils # Man Lymphocytes # (Manual) Monocytes # (Manual) POC ABG pH ABG pH 7.456 H POC ABG pCO2 POC ABG pO2 ABG pO2 78.8 L ABG HCO3 ABG Base Excess ABG Hemoglobin 5.6 L Oxyhemoglobin Sodium Potassium Chloride Carbon Dioxide BUN Creatinine Glucose POC Glucose 124 H 111 H Calcium Phosphorus Magnesium Direct Bilirubin AST Alkaline Phosphatase C-Reactive Protein Serum Total Protein Total Protein Albumin Prealbumin Mokzg-9-Gnspzgzdz Nltij-6-Zskfkjwok Gamma Globulins PEP Interpretation Triglycerides Urine pH Urine Creatinine Urine Total Protein Vancomycin Trough Digoxin Crossmatch 10/19/19 10/20/19 10/20/19 23:23 04:50 05:17 WBC RBC Hgb Hct MCV MCH MCHC RDW Plt Count Lymph % (Auto) [place] % (Auto) Lymph # [place] # Seg Neutrophils % Seg Neuts % (Manual) Lymphocytes % (Manual) Seg Neutrophils # Seg Neutrophils # Man Lymphocytes # (Manual) Monocytes # (Manual) POC ABG pH ABG pH POC ABG pCO2 POC ABG pO2 ABG pO2 ABG HCO3 ABG Base Excess ABG Hemoglobin Oxyhemoglobin Sodium Potassium Chloride 108.1 H Carbon Dioxide BUN Creatinine 0.4 L Glucose 134 H POC Glucose 129 H 123 H Calcium 7.1 L Phosphorus Magnesium Direct Bilirubin AST Alkaline Phosphatase C-Reactive Protein Serum Total Protein Total Protein Albumin Prealbumin Jkxfj-0-Sptswjxys Cckpv-4-Wxbnkzdrw Gamma Globulins PEP Interpretation Triglycerides Urine pH Urine Creatinine Urine Total Protein Vancomycin Trough Digoxin Crossmatch 10/20/19 10/20/19 10/21/19 11:40 19:06 05:08 WBC RBC Hgb Hct MCV MCH MCHC RDW Plt Count Lymph % (Auto) [place] % (Auto) Lymph # [place] # Seg Neutrophils % Seg Neuts % (Manual) Lymphocytes % (Manual) Seg Neutrophils # Seg Neutrophils # Man Lymphocytes # (Manual) Monocytes # (Manual) POC ABG pH ABG pH POC ABG pCO2 POC ABG pO2 ABG pO2 ABG HCO3 ABG Base Excess ABG Hemoglobin Oxyhemoglobin Sodium Potassium Chloride Carbon Dioxide BUN Creatinine Glucose POC Glucose 139 H 117 H 131 H Calcium Phosphorus Magnesium Direct Bilirubin AST Alkaline Phosphatase C-Reactive Protein Serum Total Protein Total Protein Albumin Prealbumin Tromj-6-Iigqvfyzw Twhll-3-Xnaeyaueh Gamma Globulins PEP Interpretation Triglycerides Urine pH Urine Creatinine Urine Total Protein Vancomycin Trough Digoxin Crossmatch 10/21/19 10/21/19 10/21/19 05:30 12:04 17:31 WBC RBC Hgb Hct MCV MCH MCHC RDW Plt Count Lymph % (Auto) [place] % (Auto) Lymph # [place] # Seg Neutrophils % Seg Neuts % (Manual) Lymphocytes % (Manual) Seg Neutrophils # Seg Neutrophils # Man Lymphocytes # (Manual) Monocytes # (Manual) POC ABG pH ABG pH POC ABG pCO2 POC ABG pO2 ABG pO2 ABG HCO3 ABG Base Excess ABG Hemoglobin Oxyhemoglobin Sodium Potassium Chloride 107.8 H Carbon Dioxide BUN Creatinine 0.5 L Glucose 119 H POC Glucose 119 H 110 H Calcium 7.6 L Phosphorus Magnesium Direct Bilirubin AST Alkaline Phosphatase C-Reactive Protein Serum Total Protein Total Protein Albumin Prealbumin Nzrkd-3-Lbomfdyhu Vcepz-5-Bnxzsulao Gamma Globulins PEP Interpretation Triglycerides Urine pH Urine Creatinine Urine Total Protein Vancomycin Trough Digoxin Crossmatch 10/22/19 10/22/19 10/22/19 05:14 05:37 12:07 WBC RBC Hgb Hct MCV MCH MCHC RDW Plt Count Lymph % (Auto) [place] % (Auto) Lymph # [place] # Seg Neutrophils % Seg Neuts % (Manual) Lymphocytes % (Manual) Seg Neutrophils # Seg Neutrophils # Man Lymphocytes # (Manual) Monocytes # (Manual) POC ABG pH ABG pH POC ABG pCO2 POC ABG pO2 ABG pO2 ABG HCO3 ABG Base Excess ABG Hemoglobin Oxyhemoglobin Sodium Potassium Chloride Carbon Dioxide BUN Creatinine 0.5 L Glucose 116 H POC Glucose 110 H 126 H Calcium 7.7 L Phosphorus Magnesium Direct Bilirubin AST Alkaline Phosphatase C-Reactive Protein Serum Total Protein Total Protein Albumin Prealbumin Deqha-2-Sjgromody Cocdi-7-Hbzgsnaxu Gamma Globulins PEP Interpretation Triglycerides Urine pH Urine Creatinine Urine Total Protein Vancomycin Trough Digoxin Crossmatch 10/22/19 10/22/19 10/23/19 18:36 23:19 04:39 WBC RBC Hgb Hct MCV MCH MCHC RDW Plt Count Lymph % (Auto) [place] % (Auto) Lymph # [place] # Seg Neutrophils % Seg Neuts % (Manual) Lymphocytes % (Manual) Seg Neutrophils # Seg Neutrophils # Man Lymphocytes # (Manual) Monocytes # (Manual) POC ABG pH ABG pH POC ABG pCO2 POC ABG pO2 ABG pO2 ABG HCO3 ABG Base Excess ABG Hemoglobin Oxyhemoglobin Sodium Potassium Chloride Carbon Dioxide BUN Creatinine Glucose POC Glucose 120 H 127 H 112 H Calcium Phosphorus Magnesium Direct Bilirubin AST Alkaline Phosphatase C-Reactive Protein Serum Total Protein Total Protein Albumin Prealbumin Lngec-8-Vjpnuepzo Sxiad-6-Jlsaqdgpf Gamma Globulins PEP Interpretation Triglycerides Urine pH Urine Creatinine Urine Total Protein Vancomycin Trough Digoxin Crossmatch 10/23/19 10/23/19 10/23/19 04:47 05:15 10:44 WBC 18.3 H RBC 2.33 L Hgb 7.0 L Hct 21.5 L MCV MCH MCHC RDW 16.2 H Plt Count Lymph % (Auto) 4.9 L [place] % (Auto) 8.1 H Lymph # 0.9 L [place] # 1.5 H Seg Neutrophils % 86.7 H Seg Neuts % (Manual) Lymphocytes % (Manual) Seg Neutrophils # 15.9 H Seg Neutrophils # Man Lymphocytes # (Manual) Monocytes # (Manual) POC ABG pH ABG pH POC ABG pCO2 POC ABG pO2 ABG pO2 68.9 L ABG HCO3 28.7 H ABG Base Excess 3.4 H ABG Hemoglobin 6.6 L Oxyhemoglobin 94.1 L Sodium Potassium Chloride Carbon Dioxide BUN Creatinine 0.5 L Glucose 165 H POC Glucose Calcium 7.4 L Phosphorus Magnesium Direct Bilirubin AST Alkaline Phosphatase C-Reactive Protein Serum Total Protein Total Protein Albumin Prealbumin Udgku-4-Litaoejao Bgphm-1-Pkrapuroo Gamma Globulins PEP Interpretation Triglycerides Urine pH Urine Creatinine Urine Total Protein Vancomycin Trough Digoxin Crossmatch 10/23/19 10/23/19 10/23/19 10:44 11:46 11:50 WBC RBC Hgb Hct MCV MCH MCHC RDW Plt Count Lymph % (Auto) [place] % (Auto) Lymph # [place] # Seg Neutrophils % Seg Neuts % (Manual) Lymphocytes % (Manual) Seg Neutrophils # Seg Neutrophils # Man Lymphocytes # (Manual) Monocytes # (Manual) POC ABG pH ABG pH POC ABG pCO2 POC ABG pO2 ABG pO2 ABG HCO3 ABG Base Excess ABG Hemoglobin Oxyhemoglobin Sodium Potassium Chloride Carbon Dioxide BUN Creatinine Glucose POC Glucose 138 H Calcium Phosphorus Magnesium Direct Bilirubin 0.7 H AST Alkaline Phosphatase C-Reactive Protein Serum Total Protein Total Protein 4.5 L Albumin 1.2 L Prealbumin Whqwt-3-Iqppfsten Yyrls-0-Xjkkejnwi Gamma Globulins PEP Interpretation Triglycerides Urine pH Urine Creatinine Urine Total Protein Vancomycin Trough Digoxin Crossmatch See Detail 10/23/19 10/24/19 10/24/19 17:53 00:07 05:05 WBC RBC Hgb Hct MCV MCH MCHC RDW Plt Count Lymph % (Auto) [place] % (Auto) Lymph # [place] # Seg Neutrophils % Seg Neuts % (Manual) Lymphocytes % (Manual) Seg Neutrophils # Seg Neutrophils # Man Lymphocytes # (Manual) Monocytes # (Manual) POC ABG pH ABG pH POC ABG pCO2 POC ABG pO2 ABG pO2 ABG HCO3 ABG Base Excess ABG Hemoglobin Oxyhemoglobin Sodium Potassium 3.5 L Chloride Carbon Dioxide BUN Creatinine 0.5 L Glucose 116 H POC Glucose 137 H 110 H Calcium 8.0 L Phosphorus Magnesium Direct Bilirubin AST Alkaline Phosphatase C-Reactive Protein Serum Total Protein Total Protein Albumin Prealbumin Hgvfs-6-Abbwcpuxw Zbkyo-7-Wwrywfqiq Gamma Globulins PEP Interpretation Triglycerides Urine pH Urine Creatinine Urine Total Protein Vancomycin Trough Digoxin Crossmatch 10/24/19 10/24/19 10/24/19 05:05 11:56 13:00 WBC 13.0 H RBC 2.73 L Hgb 8.0 L Hct 24.2 L MCV MCH MCHC RDW 17.9 H Plt Count Lymph % (Auto) 7.0 L [place] % (Auto) 9.5 H Lymph # 0.9 L [place] # 1.2 H Seg Neutrophils % 82.7 H Seg Neuts % (Manual) Lymphocytes % (Manual) Seg Neutrophils # 10.7 H Seg Neutrophils # Man Lymphocytes # (Manual) Monocytes # (Manual) POC ABG pH ABG pH POC ABG pCO2 POC ABG pO2 ABG pO2 ABG HCO3 ABG Base Excess ABG Hemoglobin Oxyhemoglobin Sodium Potassium Chloride Carbon Dioxide BUN Creatinine Glucose POC Glucose 159 H Calcium Phosphorus Magnesium Direct Bilirubin AST Alkaline Phosphatase C-Reactive Protein Serum Total Protein Total Protein Albumin Prealbumin Zfpnz-5-Meyqlqojq Itjid-5-Rhywmdvgx Gamma Globulins PEP Interpretation Triglycerides 216 H Urine pH Urine Creatinine Urine Total Protein Vancomycin Trough Digoxin Crossmatch 10/24/19 10/24/19 10/25/19 17:42 23:45 04:19 WBC RBC Hgb Hct MCV MCH MCHC RDW Plt Count Lymph % (Auto) [place] % (Auto) Lymph # [place] # Seg Neutrophils % Seg Neuts % (Manual) Lymphocytes % (Manual) Seg Neutrophils # Seg Neutrophils # Man Lymphocytes # (Manual) Monocytes # (Manual) POC ABG pH ABG pH POC ABG pCO2 POC ABG pO2 ABG pO2 ABG HCO3 ABG Base Excess ABG Hemoglobin Oxyhemoglobin Sodium 147 H Potassium Chloride Carbon Dioxide 33 H BUN Creatinine 0.5 L Glucose 111 H POC Glucose 120 H 116 H Calcium Phosphorus Magnesium Direct Bilirubin AST Alkaline Phosphatase C-Reactive Protein Serum Total Protein Total Protein 5.7 L D Albumin 2.5 L Prealbumin Flozt-6-Tdyhzrtqr Zgoaw-8-Cjkjkmmzg Gamma Globulins PEP Interpretation Triglycerides 230 H Urine pH Urine Creatinine Urine Total Protein Vancomycin Trough Digoxin Crossmatch 10/25/19 10/25/19 10/25/19 04:19 05:31 12:20 WBC RBC 2.69 L Hgb 8.1 L Hct 23.9 L MCV MCH MCHC RDW 17.3 H Plt Count Lymph % (Auto) [place] % (Auto) Lymph # [place] # Seg Neutrophils % Seg Neuts % (Manual) Lymphocytes % (Manual) Seg Neutrophils # Seg Neutrophils # Man Lymphocytes # (Manual) Monocytes # (Manual) POC ABG pH ABG pH POC ABG pCO2 POC ABG pO2 ABG pO2 ABG HCO3 ABG Base Excess ABG Hemoglobin Oxyhemoglobin Sodium Potassium Chloride Carbon Dioxide BUN Creatinine Glucose POC Glucose 126 H 114 H Calcium Phosphorus Magnesium Direct Bilirubin AST Alkaline Phosphatase C-Reactive Protein Serum Total Protein Total Protein Albumin Prealbumin Hgzge-1-Akykssoub Arwvu-2-Cwtnvkfct Gamma Globulins PEP Interpretation Triglycerides Urine pH Urine Creatinine Urine Total Protein Vancomycin Trough Digoxin Crossmatch 10/25/19 10/25/19 10/26/19 18:30 23:09 06:15 WBC RBC Hgb Hct MCV MCH MCHC RDW Plt Count Lymph % (Auto) [place] % (Auto) Lymph # [place] # Seg Neutrophils % Seg Neuts % (Manual) Lymphocytes % (Manual) Seg Neutrophils # Seg Neutrophils # Man Lymphocytes # (Manual) Monocytes # (Manual) POC ABG pH ABG pH POC ABG pCO2 POC ABG pO2 ABG pO2 ABG HCO3 ABG Base Excess ABG Hemoglobin Oxyhemoglobin Sodium Potassium 3.5 L Chloride Carbon Dioxide BUN Creatinine 0.5 L Glucose 112 H POC Glucose 121 H 107 H Calcium 8.3 L Phosphorus Magnesium Direct Bilirubin AST Alkaline Phosphatase 148 H C-Reactive Protein Serum Total Protein Total Protein 5.9 L Albumin 2.4 L Prealbumin Qofog-4-Rauexjnwl Ahynd-4-Guvvvinlo Gamma Globulins PEP Interpretation Triglycerides Urine pH Urine Creatinine Urine Total Protein Vancomycin Trough Digoxin Crossmatch 10/26/19 10/26/19 10/26/19 06:15 12:21 17:35 WBC RBC Hgb Hct MCV MCH MCHC RDW Plt Count Lymph % (Auto) [place] % (Auto) Lymph # [place] # Seg Neutrophils % Seg Neuts % (Manual) Lymphocytes % (Manual) Seg Neutrophils # Seg Neutrophils # Man Lymphocytes # (Manual) Monocytes # (Manual) POC ABG pH ABG pH POC ABG pCO2 POC ABG pO2 ABG pO2 ABG HCO3 ABG Base Excess ABG Hemoglobin Oxyhemoglobin Sodium Potassium Chloride Carbon Dioxide BUN Creatinine Glucose POC Glucose 134 H 141 H Calcium Phosphorus Magnesium Direct Bilirubin AST Alkaline Phosphatase C-Reactive Protein Serum Total Protein Total Protein Albumin Prealbumin Uoadw-4-Minnykklw Mypdf-6-Otsrypgdl Gamma Globulins PEP Interpretation Triglycerides 185 H Urine pH Urine Creatinine Urine Total Protein Vancomycin Trough Digoxin Crossmatch 10/26/19 10/27/19 10/27/19 Unknown 04:30 11:33 WBC RBC Hgb Hct MCV MCH MCHC RDW Plt Count Lymph % (Auto) [place] % (Auto) Lymph # [place] # Seg Neutrophils % Seg Neuts % (Manual) Lymphocytes % (Manual) Seg Neutrophils # Seg Neutrophils # Man Lymphocytes # (Manual) Monocytes # (Manual) POC ABG pH ABG pH POC ABG pCO2 POC ABG pO2 ABG pO2 ABG HCO3 ABG Base Excess ABG Hemoglobin Oxyhemoglobin Sodium Potassium 3.2 L Chloride Carbon Dioxide BUN 23 H Creatinine 0.6 L Glucose 130 H POC Glucose 131 H Calcium 7.9 L Phosphorus Magnesium Direct Bilirubin AST Alkaline Phosphatase C-Reactive Protein Serum Total Protein Total Protein Albumin Prealbumin Peizg-0-Qopnsrdfk Lyaww-4-Qcbuothgh Gamma Globulins PEP Interpretation Triglycerides Urine pH 9.0 H Urine Creatinine Urine Total Protein Vancomycin Trough Digoxin Crossmatch 10/27/19 10/28/19 10/28/19 17:45 05:25 05:49 WBC RBC 2.85 L Hgb 8.3 L Hct 26.8 L MCV MCH MCHC 31 L RDW 17.4 H Plt Count Lymph % (Auto) 8.9 L [place] % (Auto) 14.3 H Lymph # 0.8 L [place] # 1.3 H Seg Neutrophils % 76.5 H Seg Neuts % (Manual) Lymphocytes % (Manual) Seg Neutrophils # Seg Neutrophils # Man Lymphocytes # (Manual) Monocytes # (Manual) POC ABG pH ABG pH POC ABG pCO2 POC ABG pO2 ABG pO2 ABG HCO3 ABG Base Excess ABG Hemoglobin Oxyhemoglobin Sodium Potassium Chloride Carbon Dioxide BUN Creatinine Glucose POC Glucose 121 H 120 H Calcium Phosphorus Magnesium Direct Bilirubin AST Alkaline Phosphatase C-Reactive Protein Serum Total Protein Total Protein Albumin Prealbumin Imxtk-0-Lvagfkafp Qhscn-0-Kkgnqwbbk Gamma Globulins PEP Interpretation Triglycerides Urine pH Urine Creatinine Urine Total Protein Vancomycin Trough Digoxin Crossmatch 10/28/19 10/28/19 10/28/19 07:19 12:07 18:21 WBC RBC Hgb Hct MCV MCH MCHC RDW Plt Count Lymph % (Auto) [place] % (Auto) Lymph # [place] # Seg Neutrophils % Seg Neuts % (Manual) Lymphocytes % (Manual) Seg Neutrophils # Seg Neutrophils # Man Lymphocytes # (Manual) Monocytes # (Manual) POC ABG pH ABG pH POC ABG pCO2 POC ABG pO2 ABG pO2 ABG HCO3 ABG Base Excess ABG Hemoglobin Oxyhemoglobin Sodium Potassium Chloride Carbon Dioxide BUN 23 H Creatinine 0.5 L Glucose 129 H POC Glucose 127 H 130 H Calcium 8.0 L Phosphorus Magnesium Direct Bilirubin AST Alkaline Phosphatase C-Reactive Protein Serum Total Protein Total Protein Albumin Prealbumin Rakrw-5-Fpsjdkhhw Zosve-0-Iktzyybor Gamma Globulins PEP Interpretation Triglycerides Urine pH Urine Creatinine Urine Total Protein Vancomycin Trough Digoxin Crossmatch 10/28/19 10/29/19 10/29/19 23:30 05:30 05:30 WBC 11.2 H RBC 3.36 L Hgb 9.7 L Hct 29.4 L MCV MCH MCHC RDW 16.7 H Plt Count Lymph % (Auto) [place] % (Auto) 16.0 H Lymph # [place] # 1.8 H Seg Neutrophils % 70.2 H Seg Neuts % (Manual) Lymphocytes % (Manual) Seg Neutrophils # 7.9 H Seg Neutrophils # Man Lymphocytes # (Manual) Monocytes # (Manual) POC ABG pH ABG pH POC ABG pCO2 POC ABG pO2 ABG pO2 ABG HCO3 ABG Base Excess ABG Hemoglobin Oxyhemoglobin Sodium Potassium Chloride Carbon Dioxide BUN 23 H Creatinine 0.5 L Glucose POC Glucose 130 H Calcium 8.3 L Phosphorus Magnesium Direct Bilirubin AST Alkaline Phosphatase C-Reactive Protein Serum Total Protein Total Protein Albumin Prealbumin Tcwxr-5-Fngjqfixl Xczzv-9-Cedkhtqrj Gamma Globulins PEP Interpretation Triglycerides Urine pH Urine Creatinine Urine Total Protein Vancomycin Trough Digoxin Crossmatch 10/29/19 10/29/19 10/29/19 05:52 13:10 18:02 WBC RBC Hgb Hct MCV MCH MCHC RDW Plt Count Lymph % (Auto) [place] % (Auto) Lymph # [place] # Seg Neutrophils % Seg Neuts % (Manual) Lymphocytes % (Manual) Seg Neutrophils # Seg Neutrophils # Man Lymphocytes # (Manual) Monocytes # (Manual) POC ABG pH ABG pH POC ABG pCO2 POC ABG pO2 ABG pO2 ABG HCO3 ABG Base Excess ABG Hemoglobin Oxyhemoglobin Sodium Potassium Chloride Carbon Dioxide BUN Creatinine Glucose POC Glucose 111 H 140 H 140 H Calcium Phosphorus Magnesium Direct Bilirubin AST Alkaline Phosphatase C-Reactive Protein Serum Total Protein Total Protein Albumin Prealbumin Uoxbf-1-Fhowslzxm Tcnpn-5-Crrxiosie Gamma Globulins PEP Interpretation Triglycerides Urine pH Urine Creatinine Urine Total Protein Vancomycin Trough Digoxin Crossmatch 10/29/19 10/30/19 10/30/19 23:58 01:05 05:15 WBC RBC Hgb Hct MCV MCH MCHC RDW Plt Count Lymph % (Auto) [place] % (Auto) Lymph # [place] # Seg Neutrophils % Seg Neuts % (Manual) Lymphocytes % (Manual) Seg Neutrophils # Seg Neutrophils # Man Lymphocytes # (Manual) Monocytes # (Manual) POC ABG pH ABG pH POC ABG pCO2 62.0 H POC ABG pO2 168 H ABG pO2 ABG HCO3 ABG Base Excess ABG Hemoglobin Oxyhemoglobin Sodium 147 H Potassium Chloride 107.8 H Carbon Dioxide BUN 26 H Creatinine 0.5 L Glucose 139 H POC Glucose 161 H Calcium Phosphorus Magnesium 2.40 H Direct Bilirubin AST Alkaline Phosphatase C-Reactive Protein Serum Total Protein Total Protein Albumin Prealbumin Sebcx-9-Buwokisgy Ckhot-0-Wlrwpzezd Gamma Globulins PEP Interpretation Triglycerides Urine pH Urine Creatinine Urine Total Protein Vancomycin Trough Digoxin Crossmatch 10/30/19 10/30/19 10/30/19 05:15 06:32 09:44 WBC 13.8 H RBC 3.59 L Hgb 10.1 L Hct 32.4 L MCV MCH MCHC 31 L RDW 17.4 H Plt Count Lymph % (Auto) 11.2 L [place] % (Auto) 13.6 H Lymph # [place] # 1.9 H Seg Neutrophils % 75.1 H Seg Neuts % (Manual) Lymphocytes % (Manual) Seg Neutrophils # 10.4 H Seg Neutrophils # Man Lymphocytes # (Manual) Monocytes # (Manual) POC ABG pH ABG pH POC ABG pCO2 51.7 H POC ABG pO2 111 H ABG pO2 ABG HCO3 ABG Base Excess ABG Hemoglobin Oxyhemoglobin Sodium Potassium Chloride Carbon Dioxide BUN Creatinine Glucose POC Glucose 141 H Calcium Phosphorus Magnesium Direct Bilirubin AST Alkaline Phosphatase C-Reactive Protein Serum Total Protein Total Protein Albumin Prealbumin Lrblp-3-Ifdcahgun Qqucm-3-Fkpouhskk Gamma Globulins PEP Interpretation Triglycerides Urine pH Urine Creatinine Urine Total Protein Vancomycin Trough Digoxin Crossmatch 10/30/19 10/31/19 10/31/19 18:10 04:18 04:18 WBC 11.7 H RBC 3.11 L Hgb 9.0 L Hct 27.9 L MCV MCH MCHC RDW 17.1 H Plt Count Lymph % (Auto) [place] % (Auto) Lymph # [place] # Seg Neutrophils % Seg Neuts % (Manual) Lymphocytes % (Manual) Seg Neutrophils # Seg Neutrophils # Man Lymphocytes # (Manual) Monocytes # (Manual) POC ABG pH ABG pH POC ABG pCO2 POC ABG pO2 ABG pO2 ABG HCO3 ABG Base Excess ABG Hemoglobin Oxyhemoglobin Sodium 148 H Potassium Chloride 108.7 H Carbon Dioxide BUN 37 H Creatinine 0.7 L Glucose 102 H POC Glucose 131 H Calcium Phosphorus Magnesium Direct Bilirubin AST Alkaline Phosphatase C-Reactive Protein Serum Total Protein Total Protein Albumin Prealbumin Vpknp-9-Kfyuhyeqo Kizph-4-Vchfgxdhw Gamma Globulins PEP Interpretation Triglycerides Urine pH Urine Creatinine Urine Total Protein Vancomycin Trough Digoxin Crossmatch 10/31/19 10/31/19 10/31/19 11:32 12:55 18:10 WBC RBC Hgb Hct MCV MCH MCHC RDW Plt Count Lymph % (Auto) [place] % (Auto) Lymph # [place] # Seg Neutrophils % Seg Neuts % (Manual) Lymphocytes % (Manual) Seg Neutrophils # Seg Neutrophils # Man Lymphocytes # (Manual) Monocytes # (Manual) POC ABG pH ABG pH POC ABG pCO2 57.9 H POC ABG pO2 135 H ABG pO2 ABG HCO3 ABG Base Excess ABG Hemoglobin Oxyhemoglobin Sodium Potassium Chloride Carbon Dioxide BUN Creatinine Glucose POC Glucose 120 H Calcium Phosphorus Magnesium Direct Bilirubin AST Alkaline Phosphatase C-Reactive Protein Serum Total Protein Total Protein Albumin Prealbumin Vzwgy-0-Dzwsplojz Nfhay-2-Jnrwawlyd Gamma Globulins PEP Interpretation Triglycerides Urine pH Urine Creatinine Urine Total Protein Vancomycin Trough 41.7 H Digoxin Crossmatch 10/31/19 11/01/19 11/01/19 23:08 05:30 05:30 WBC 14.6 H RBC 3.13 L Hgb 8.9 L Hct 27.7 L MCV MCH MCHC RDW 17.0 H Plt Count Lymph % (Auto) [place] % (Auto) Lymph # [place] # Seg Neutrophils % Seg Neuts % (Manual) Lymphocytes % (Manual) Seg Neutrophils # Seg Neutrophils # Man Lymphocytes # (Manual) Monocytes # (Manual) POC ABG pH ABG pH POC ABG pCO2 POC ABG pO2 ABG pO2 ABG HCO3 ABG Base Excess ABG Hemoglobin Oxyhemoglobin Sodium 149 H Potassium Chloride 109.0 H Carbon Dioxide BUN 26 H Creatinine 0.7 L Glucose 129 H POC Glucose 109 H Calcium Phosphorus Magnesium Direct Bilirubin AST Alkaline Phosphatase C-Reactive Protein Serum Total Protein Total Protein Albumin Prealbumin Jyypy-2-Sgmusskgk Nbryt-8-Firptsynr Gamma Globulins PEP Interpretation Triglycerides Urine pH Urine Creatinine Urine Total Protein Vancomycin Trough Digoxin Crossmatch 11/01/19 11/01/19 11/01/19 06:09 06:10 11:52 WBC RBC Hgb Hct MCV MCH MCHC RDW Plt Count Lymph % (Auto) [place] % (Auto) Lymph # [place] # Seg Neutrophils % Seg Neuts % (Manual) Lymphocytes % (Manual) Seg Neutrophils # Seg Neutrophils # Man Lymphocytes # (Manual) Monocytes # (Manual) POC ABG pH ABG pH POC ABG pCO2 51.3 H POC ABG pO2 71 L ABG pO2 ABG HCO3 ABG Base Excess ABG Hemoglobin Oxyhemoglobin Sodium Potassium Chloride Carbon Dioxide BUN Creatinine Glucose POC Glucose 113 H 106 H Calcium Phosphorus Magnesium Direct Bilirubin AST Alkaline Phosphatase C-Reactive Protein Serum Total Protein Total Protein Albumin Prealbumin Zckkc-2-Ltsausiym Zdmjx-8-Pdalulwlc Gamma Globulins PEP Interpretation Triglycerides Urine pH Urine Creatinine Urine Total Protein Vancomycin Trough Digoxin Crossmatch 11/01/19 11/02/19 11/02/19 18:18 03:40 03:40 WBC RBC 2.36 L Hgb 7.2 L Hct 20.8 L D MCV MCH MCHC 35 H RDW 16.8 H Plt Count Lymph % (Auto) [place] % (Auto) Lymph # [place] # Seg Neutrophils % Seg Neuts % (Manual) Lymphocytes % (Manual) Seg Neutrophils # Seg Neutrophils # Man Lymphocytes # (Manual) Monocytes # (Manual) POC ABG pH ABG pH POC ABG pCO2 POC ABG pO2 ABG pO2 ABG HCO3 ABG Base Excess ABG Hemoglobin Oxyhemoglobin Sodium 157 H D Potassium 3.0 L D Chloride 117.2 H Carbon Dioxide BUN 23 H Creatinine 0.6 L Glucose 101 H POC Glucose 120 H Calcium 6.4 L D Phosphorus Magnesium Direct Bilirubin AST Alkaline Phosphatase C-Reactive Protein Serum Total Protein Total Protein Albumin Prealbumin Rmxol-1-Nvizefzte Yobch-6-Schifeebi Gamma Globulins PEP Interpretation Triglycerides Urine pH Urine Creatinine Urine Total Protein Vancomycin Trough Digoxin Crossmatch 11/02/19 11/02/19 11/02/19 04:48 05:30 12:43 WBC RBC Hgb Hct MCV MCH MCHC RDW Plt Count Lymph % (Auto) [place] % (Auto) Lymph # [place] # Seg Neutrophils % Seg Neuts % (Manual) Lymphocytes % (Manual) Seg Neutrophils # Seg Neutrophils # Man Lymphocytes # (Manual) Monocytes # (Manual) POC ABG pH ABG pH POC ABG pCO2 50.1 H POC ABG pO2 74 L ABG pO2 ABG HCO3 ABG Base Excess ABG Hemoglobin Oxyhemoglobin Sodium 149 H D Potassium Chloride 110.0 H Carbon Dioxide BUN 23 H Creatinine 0.6 L Glucose POC Glucose 109 H Calcium 8.1 L D Phosphorus Magnesium 2.40 H Direct Bilirubin AST Alkaline Phosphatase C-Reactive Protein Serum Total Protein Total Protein Albumin Prealbumin Sqfsv-6-Tlddfxbts Irhyh-2-Xvoedfgpr Gamma Globulins PEP Interpretation Triglycerides Urine pH Urine Creatinine Urine Total Protein Vancomycin Trough Digoxin Crossmatch 11/03/19 11/03/19 11/03/19 03:42 03:42 04:13 WBC RBC 2.93 L Hgb 8.5 L Hct 25.8 L MCV MCH MCHC RDW 16.9 H Plt Count Lymph % (Auto) [place] % (Auto) Lymph # [place] # Seg Neutrophils % Seg Neuts % (Manual) Lymphocytes % (Manual) Seg Neutrophils # Seg Neutrophils # Man Lymphocytes # (Manual) Monocytes # (Manual) POC ABG pH 7.540 H ABG pH POC ABG pCO2 POC ABG pO2 51 L ABG pO2 ABG HCO3 ABG Base Excess ABG Hemoglobin Oxyhemoglobin Sodium 147 H Potassium 3.5 L D Chloride 108.6 H Carbon Dioxide BUN Creatinine 0.6 L Glucose 109 H POC Glucose Calcium 8.3 L Phosphorus Magnesium Direct Bilirubin AST Alkaline Phosphatase C-Reactive Protein Serum Total Protein Total Protein Albumin Prealbumin Tcdot-6-Syfterwsd Fbysf-8-Amwluadsw Gamma Globulins PEP Interpretation Triglycerides Urine pH Urine Creatinine Urine Total Protein Vancomycin Trough Digoxin Crossmatch 11/03/19 11/03/19 11/03/19 04:28 12:04 23:02 WBC RBC Hgb Hct MCV MCH MCHC RDW Plt Count Lymph % (Auto) [place] % (Auto) Lymph # [place] # Seg Neutrophils % Seg Neuts % (Manual) Lymphocytes % (Manual) Seg Neutrophils # Seg Neutrophils # Man Lymphocytes # (Manual) Monocytes # (Manual) POC ABG pH ABG pH POC ABG pCO2 45.4 H POC ABG pO2 ABG pO2 ABG HCO3 ABG Base Excess ABG Hemoglobin Oxyhemoglobin Sodium Potassium Chloride Carbon Dioxide BUN Creatinine Glucose POC Glucose 109 H 111 H Calcium Phosphorus Magnesium Direct Bilirubin AST Alkaline Phosphatase C-Reactive Protein Serum Total Protein Total Protein Albumin Prealbumin Fkawm-0-Jcmrdcrej Hskaj-7-Ajnwygiav Gamma Globulins PEP Interpretation Triglycerides Urine pH Urine Creatinine Urine Total Protein Vancomycin Trough Digoxin Crossmatch 11/04/19 11/04/19 11/04/19 05:00 05:00 05:19 WBC RBC 2.96 L Hgb 8.6 L Hct 25.5 L MCV MCH MCHC RDW 16.7 H Plt Count Lymph % (Auto) [place] % (Auto) Lymph # [place] # Seg Neutrophils % Seg Neuts % (Manual) Lymphocytes % (Manual) Seg Neutrophils # Seg Neutrophils # Man Lymphocytes # (Manual) Monocytes # (Manual) POC ABG pH ABG pH POC ABG pCO2 POC ABG pO2 ABG pO2 ABG HCO3 ABG Base Excess ABG Hemoglobin Oxyhemoglobin Sodium Potassium 3.5 L Chloride Carbon Dioxide BUN Creatinine 0.5 L Glucose 111 H POC Glucose 106 H Calcium 8.1 L Phosphorus Magnesium Direct Bilirubin AST Alkaline Phosphatase C-Reactive Protein Serum Total Protein Total Protein Albumin Prealbumin Zijvl-8-Qsqxwwmjj Xcjlw-3-Qrrbebntg Gamma Globulins PEP Interpretation Triglycerides Urine pH Urine Creatinine Urine Total Protein Vancomycin Trough Digoxin Crossmatch 11/04/19 11/05/19 11/05/19 12:40 00:28 04:19 WBC 12.4 H RBC 2.98 L Hgb 8.5 L Hct 25.5 L MCV MCH MCHC RDW 16.6 H Plt Count Lymph % (Auto) [place] % (Auto) Lymph # [place] # Seg Neutrophils % Seg Neuts % (Manual) Lymphocytes % (Manual) Seg Neutrophils # Seg Neutrophils # Man Lymphocytes # (Manual) Monocytes # (Manual) POC ABG pH ABG pH POC ABG pCO2 POC ABG pO2 ABG pO2 ABG HCO3 ABG Base Excess ABG Hemoglobin Oxyhemoglobin Sodium Potassium Chloride Carbon Dioxide BUN Creatinine Glucose POC Glucose 109 H 132 H Calcium Phosphorus Magnesium Direct Bilirubin AST Alkaline Phosphatase C-Reactive Protein Serum Total Protein Total Protein Albumin Prealbumin Ojbzf-3-Rynfqrpqq Qlzli-6-Kqlgauojr Gamma Globulins PEP Interpretation Triglycerides Urine pH Urine Creatinine Urine Total Protein Vancomycin Trough Digoxin Crossmatch 11/05/19 11/05/19 11/05/19 04:19 05:40 13:14 WBC RBC Hgb Hct MCV MCH MCHC RDW Plt Count Lymph % (Auto) [place] % (Auto) Lymph # [place] # Seg Neutrophils % Seg Neuts % (Manual) Lymphocytes % (Manual) Seg Neutrophils # Seg Neutrophils # Man Lymphocytes # (Manual) Monocytes # (Manual) POC ABG pH ABG pH POC ABG pCO2 POC ABG pO2 ABG pO2 ABG HCO3 ABG Base Excess ABG Hemoglobin Oxyhemoglobin Sodium Potassium 3.4 L Chloride Carbon Dioxide BUN Creatinine 0.4 L Glucose 106 H POC Glucose 136 H 145 H Calcium 8.2 L Phosphorus Magnesium Direct Bilirubin AST Alkaline Phosphatase C-Reactive Protein Serum Total Protein Total Protein Albumin Prealbumin Cyrxk-4-Dwldbyody Yjxpi-1-Mrbidhgnx Gamma Globulins PEP Interpretation Triglycerides Urine pH Urine Creatinine Urine Total Protein Vancomycin Trough Digoxin Crossmatch 11/05/19 11/05/19 11/06/19 18:29 23:42 05:00 WBC 12.2 H RBC 2.89 L Hgb 8.2 L Hct 24.9 L MCV MCH MCHC RDW 16.4 H Plt Count Lymph % (Auto) [place] % (Auto) Lymph # [place] # Seg Neutrophils % Seg Neuts % (Manual) Lymphocytes % (Manual) Seg Neutrophils # Seg Neutrophils # Man Lymphocytes # (Manual) Monocytes # (Manual) POC ABG pH ABG pH POC ABG pCO2 POC ABG pO2 ABG pO2 ABG HCO3 ABG Base Excess ABG Hemoglobin Oxyhemoglobin Sodium Potassium Chloride Carbon Dioxide BUN Creatinine Glucose POC Glucose 138 H 117 H Calcium Phosphorus Magnesium Direct Bilirubin AST Alkaline Phosphatase C-Reactive Protein Serum Total Protein Total Protein Albumin Prealbumin Ysplo-1-Qqnarpaal Ozsrt-7-Kdqaxoijg Gamma Globulins PEP Interpretation Triglycerides Urine pH Urine Creatinine Urine Total Protein Vancomycin Trough Digoxin Crossmatch 11/06/19 11/06/19 11/06/19 05:00 05:22 17:39 WBC RBC Hgb Hct MCV MCH MCHC RDW Plt Count Lymph % (Auto) [place] % (Auto) Lymph # [place] # Seg Neutrophils % Seg Neuts % (Manual) Lymphocytes % (Manual) Seg Neutrophils # Seg Neutrophils # Man Lymphocytes # (Manual) Monocytes # (Manual) POC ABG pH ABG pH POC ABG pCO2 POC ABG pO2 ABG pO2 ABG HCO3 ABG Base Excess ABG Hemoglobin Oxyhemoglobin Sodium Potassium Chloride Carbon Dioxide BUN Creatinine 0.4 L Glucose 114 H POC Glucose 121 H 110 H Calcium 8.2 L Phosphorus Magnesium Direct Bilirubin AST Alkaline Phosphatase C-Reactive Protein Serum Total Protein Total Protein Albumin Prealbumin [id number]-[id number]-Mmossqrxb Yluos-0-Lzboulqmu Gamma Globulins PEP Interpretation Triglycerides Urine pH Urine Creatinine Urine Total Protein Vancomycin Trough Digoxin Crossmatch 11/06/19 11/07/19 11/07/19 23:29 04:06 04:06 WBC 13.0 H RBC 2.80 L Hgb 7.9 L Hct 24.0 L MCV MCH MCHC RDW 16.5 H Plt Count Lymph % (Auto) 7.0 L [place] % (Auto) Lymph # 0.9 L [place] # Seg Neutrophils % 86.3 H Seg Neuts % (Manual) Lymphocytes % (Manual) Seg Neutrophils # 11.2 H Seg Neutrophils # Man Lymphocytes # (Manual) Monocytes # (Manual) POC ABG pH ABG pH POC ABG pCO2 POC ABG pO2 ABG pO2 ABG HCO3 ABG Base Excess ABG Hemoglobin Oxyhemoglobin Sodium Potassium Chloride Carbon Dioxide BUN Creatinine 0.4 L Glucose 110 H POC Glucose 113 H Calcium 8.2 L Phosphorus Magnesium Direct Bilirubin AST Alkaline Phosphatase C-Reactive Protein Serum Total Protein Total Protein Albumin Prealbumin Yfyvd-6-Uztyohgkd Wmqqg-6-Xiczdqehd Gamma Globulins PEP Interpretation Triglycerides Urine pH Urine Creatinine Urine Total Protein Vancomycin Trough Digoxin Crossmatch 11/07/19 11/07/19 11/07/19 05:43 12:47 18:19 WBC RBC Hgb Hct MCV MCH MCHC RDW Plt Count Lymph % (Auto) [place] % (Auto) Lymph # [place] # Seg Neutrophils % Seg Neuts % (Manual) Lymphocytes % (Manual) Seg Neutrophils # Seg Neutrophils # Man Lymphocytes # (Manual) Monocytes # (Manual) POC ABG pH ABG pH POC ABG pCO2 POC ABG pO2 ABG pO2 ABG HCO3 ABG Base Excess ABG Hemoglobin Oxyhemoglobin Sodium Potassium Chloride Carbon Dioxide BUN Creatinine Glucose POC Glucose 114 H 120 H 112 H Calcium Phosphorus Magnesium Direct Bilirubin AST Alkaline Phosphatase C-Reactive Protein Serum Total Protein Total Protein Albumin Prealbumin Ukqfj-6-Vnavcodpu Amein-5-Xpjuosufg Gamma Globulins PEP Interpretation Triglycerides Urine pH Urine Creatinine Urine Total Protein Vancomycin Trough Digoxin Crossmatch 11/08/19 11/08/19 11/08/19 03:45 03:45 11:43 WBC 12.7 H RBC 2.82 L Hgb 7.8 L Hct 24.4 L MCV MCH MCHC RDW 16.5 H Plt Count Lymph % (Auto) 9.4 L [place] % (Auto) Lymph # [place] # 0.9 H Seg Neutrophils % 83.0 H Seg Neuts % (Manual) Lymphocytes % (Manual) Seg Neutrophils # 10.6 H Seg Neutrophils # Man Lymphocytes # (Manual) Monocytes # (Manual) POC ABG pH ABG pH POC ABG pCO2 POC ABG pO2 ABG pO2 ABG HCO3 ABG Base Excess ABG Hemoglobin Oxyhemoglobin Sodium Potassium Chloride Carbon Dioxide BUN Creatinine 0.4 L Glucose 107 H POC Glucose 118 H Calcium Phosphorus Magnesium Direct Bilirubin AST Alkaline Phosphatase C-Reactive Protein Serum Total Protein Total Protein Albumin Prealbumin Arlva-9-Jwydcwckp Pbmcm-2-Cvtbeltbo Gamma Globulins PEP Interpretation Triglycerides Urine pH Urine Creatinine Urine Total Protein Vancomycin Trough Digoxin Crossmatch 11/08/19 11/09/19 11/09/19 23:45 12:41 12:56 WBC RBC Hgb Hct MCV MCH MCHC RDW Plt Count Lymph % (Auto) [place] % (Auto) Lymph # [place] # Seg Neutrophils % Seg Neuts % (Manual) Lymphocytes % (Manual) Seg Neutrophils # Seg Neutrophils # Man Lymphocytes # (Manual) Monocytes # (Manual) POC ABG pH ABG pH POC ABG pCO2 POC ABG pO2 ABG pO2 ABG HCO3 ABG Base Excess ABG Hemoglobin Oxyhemoglobin Sodium Potassium Chloride Carbon Dioxide BUN Creatinine Glucose POC Glucose 113 H 107 H 122 H Calcium Phosphorus Magnesium Direct Bilirubin AST Alkaline Phosphatase C-Reactive Protein Serum Total Protein Total Protein Albumin Prealbumin Zyfhz-6-Lviccfjgw Wagdr-8-Vzlbslosp Gamma Globulins PEP Interpretation Triglycerides Urine pH Urine Creatinine Urine Total Protein Vancomycin Trough Digoxin Crossmatch 1211/10/19 11/11/19 05:12 12:20 12:13 WBC RBC Hgb Hct MCV MCH MCHC RDW Plt Count Lymph % (Auto) [place] % (Auto) Lymph # [place] # Seg Neutrophils % Seg Neuts % (Manual) Lymphocytes % (Manual) Seg Neutrophils # Seg Neutrophils # Man Lymphocytes # (Manual) Monocytes # (Manual) POC ABG pH ABG pH POC ABG pCO2 POC ABG pO2 ABG pO2 ABG HCO3 ABG Base Excess ABG Hemoglobin Oxyhemoglobin Sodium Potassium Chloride Carbon Dioxide BUN Creatinine Glucose POC Glucose 127 H 125 H 107 H Calcium Phosphorus Magnesium Direct Bilirubin AST Alkaline Phosphatase C-Reactive Protein Serum Total Protein Total Protein Albumin Prealbumin Bwjnq-1-Ltbbcxuqv Ewymw-2-Ciodqhxrw Gamma Globulins PEP Interpretation Triglycerides Urine pH Urine Creatinine Urine Total Protein Vancomycin Trough Digoxin Crossmatch 11/11/19 11/11/19 11/12/19 17:29 22:20 06:00 WBC RBC 2.77 L Hgb 7.8 L Hct 23.4 L MCV MCH MCHC RDW 16.6 H Plt Count Lymph % (Auto) 11.9 L [place] % (Auto) 8.9 H Lymph # [place] # 0.9 H Seg Neutrophils % 78.2 H Seg Neuts % (Manual) Lymphocytes % (Manual) Seg Neutrophils # 8.2 H Seg Neutrophils # Man Lymphocytes # (Manual) Monocytes # (Manual) POC ABG pH ABG pH POC ABG pCO2 POC ABG pO2 ABG pO2 ABG HCO3 ABG Base Excess ABG Hemoglobin Oxyhemoglobin Sodium Potassium Chloride Carbon Dioxide BUN Creatinine Glucose POC Glucose 120 H 109 H Calcium Phosphorus Magnesium Direct Bilirubin AST Alkaline Phosphatase C-Reactive Protein Serum Total Protein Total Protein Albumin Prealbumin Ezwdi-7-Wrmhurvvu Odsse-0-Hnlhegllf Gamma Globulins PEP Interpretation Triglycerides Urine pH Urine Creatinine Urine Total Protein Vancomycin Trough Digoxin Crossmatch 11/12/19 11/12/19 11/12/19 07:52 11:58 23:44 WBC RBC Hgb Hct MCV MCH MCHC RDW Plt Count Lymph % (Auto) [place] % (Auto) Lymph # [place] # Seg Neutrophils % Seg Neuts % (Manual) Lymphocytes % (Manual) Seg Neutrophils # Seg Neutrophils # Man Lymphocytes # (Manual) Monocytes # (Manual) POC ABG pH ABG pH POC ABG pCO2 POC ABG pO2 ABG pO2 ABG HCO3 ABG Base Excess ABG Hemoglobin Oxyhemoglobin Sodium Potassium Chloride Carbon Dioxide BUN Creatinine Glucose POC Glucose 120 H 140 H 116 H Calcium Phosphorus Magnesium Direct Bilirubin AST Alkaline Phosphatase C-Reactive Protein Serum Total Protein Total Protein Albumin Prealbumin Lnjfw-7-Lqauafxri Zmqfp-0-Buvlynhys Gamma Globulins PEP Interpretation Triglycerides Urine pH Urine Creatinine Urine Total Protein Vancomycin Trough Digoxin Crossmatch 11/13/19 11/13/19 11/13/19 04:33 04:33 13:43 WBC 11.2 H RBC 2.90 L Hgb 8.1 L Hct 24.5 L MCV MCH MCHC RDW 16.5 H Plt Count Lymph % (Auto) 10.1 L [place] % (Auto) 7.6 H Lymph # 1.1 L [place] # 0.9 H Seg Neutrophils % 81.1 H Seg Neuts % (Manual) Lymphocytes % (Manual) Seg Neutrophils # 9.1 H Seg Neutrophils # Man Lymphocytes # (Manual) Monocytes # (Manual) POC ABG pH ABG pH POC ABG pCO2 POC ABG pO2 ABG pO2 ABG HCO3 ABG Base Excess ABG Hemoglobin Oxyhemoglobin Sodium 135 L Potassium Chloride 91.9 L Carbon Dioxide BUN Creatinine 0.6 L Glucose POC Glucose 122 H Calcium Phosphorus Magnesium Direct Bilirubin AST Alkaline Phosphatase C-Reactive Protein Serum Total Protein Total Protein Albumin Prealbumin Xrkab-4-Uvdtzaiqb Gfmmn-3-Wobmgflxi Gamma Globulins PEP Interpretation Triglycerides Urine pH Urine Creatinine Urine Total Protein Vancomycin Trough Digoxin Crossmatch 11/13/19 11/14/19 11/15/19 17:57 12:35 07:10 WBC 14.8 H RBC 2.89 L Hgb 7.8 L Hct 24.2 L MCV MCH 27 L MCHC RDW 16.9 H Plt Count Lymph % (Auto) [place] % (Auto) Lymph # [place] # Seg Neutrophils % Seg Neuts % (Manual) Lymphocytes % (Manual) Seg Neutrophils # Seg Neutrophils # Man Lymphocytes # (Manual) Monocytes # (Manual) POC ABG pH ABG pH POC ABG pCO2 POC ABG pO2 ABG pO2 ABG HCO3 ABG Base Excess ABG Hemoglobin Oxyhemoglobin Sodium Potassium Chloride Carbon Dioxide BUN Creatinine Glucose POC Glucose 127 H 148 H Calcium Phosphorus Magnesium Direct Bilirubin AST Alkaline Phosphatase C-Reactive Protein Serum Total Protein Total Protein Albumin Prealbumin Ltuxm-4-Spkvxyhbd Nnkrx-2-Sbhhmdgcs Gamma Globulins PEP Interpretation Triglycerides Urine pH Urine Creatinine Urine Total Protein Vancomycin Trough Digoxin Crossmatch 11/15/19 11/15/19 11/16/19 07:10 20:16 10:26 WBC 14.4 H RBC 2.79 L Hgb 7.6 L Hct 23.5 L MCV MCH 27 L MCHC RDW 17.0 H Plt Count Lymph % (Auto) [place] % (Auto) Lymph # [place] # Seg Neutrophils % Seg Neuts % (Manual) Lymphocytes % (Manual) Seg Neutrophils # Seg Neutrophils # Man Lymphocytes # (Manual) Monocytes # (Manual) POC ABG pH ABG pH POC ABG pCO2 POC ABG pO2 ABG pO2 ABG HCO3 ABG Base Excess ABG Hemoglobin Oxyhemoglobin Sodium 133 L 136 L Potassium 3.5 L Chloride 93.7 L 97.4 L Carbon Dioxide BUN Creatinine 0.6 L 0.6 L Glucose 130 H POC Glucose Calcium Phosphorus Magnesium Direct Bilirubin AST Alkaline Phosphatase C-Reactive Protein Serum Total Protein Total Protein Albumin Prealbumin Rfhom-3-Voezzgvfz Jaeek-9-Fvwtlfqdo Gamma Globulins PEP Interpretation Triglycerides Urine pH Urine Creatinine Urine Total Protein Vancomycin Trough Digoxin Crossmatch 11/16/19 11/17/19 11/17/19 13:01 00:40 07:22 WBC 14.0 H RBC 2.71 L Hgb 7.4 L Hct 22.8 L MCV MCH 27 L MCHC RDW 17.2 H Plt Count Lymph % (Auto) [place] % (Auto) Lymph # [place] # Seg Neutrophils % Seg Neuts % (Manual) Lymphocytes % (Manual) Seg Neutrophils # Seg Neutrophils # Man Lymphocytes # (Manual) Monocytes # (Manual) POC ABG pH ABG pH POC ABG pCO2 POC ABG pO2 ABG pO2 ABG HCO3 ABG Base Excess ABG Hemoglobin Oxyhemoglobin Sodium Potassium Chloride Carbon Dioxide BUN Creatinine Glucose POC Glucose 117 H 124 H Calcium Phosphorus Magnesium Direct Bilirubin AST Alkaline Phosphatase C-Reactive Protein Serum Total Protein Total Protein Albumin Prealbumin Dipls-4-Qsyppshnz Vlpgm-3-Qpjlhpqrc Gamma Globulins PEP Interpretation Triglycerides Urine pH Urine Creatinine Urine Total Protein Vancomycin Trough Digoxin Crossmatch 11/17/19 11/17/19 11/17/19 07:22 12:00 17:57 WBC RBC Hgb Hct MCV MCH MCHC RDW Plt Count Lymph % (Auto) [place] % (Auto) Lymph # [place] # Seg Neutrophils % Seg Neuts % (Manual) Lymphocytes % (Manual) Seg Neutrophils # Seg Neutrophils # Man Lymphocytes # (Manual) Monocytes # (Manual) POC ABG pH ABG pH POC ABG pCO2 POC ABG pO2 ABG pO2 ABG HCO3 ABG Base Excess ABG Hemoglobin Oxyhemoglobin Sodium 136 L Potassium Chloride 96.1 L Carbon Dioxide BUN 7 L Creatinine 0.5 L Glucose POC Glucose 130 H 111 H Calcium Phosphorus Magnesium Direct Bilirubin AST Alkaline Phosphatase C-Reactive Protein Serum Total Protein Total Protein Albumin Prealbumin Xnzcq-7-Rdpddlgdm Khyur-9-Iksylzapd Gamma Globulins PEP Interpretation Triglycerides Urine pH Urine Creatinine Urine Total Protein Vancomycin Trough Digoxin Crossmatch 11/18/19 11/18/19 11/18/19 06:03 12:12 17:54 WBC RBC Hgb Hct MCV MCH MCHC RDW Plt Count Lymph % (Auto) [place] % (Auto) Lymph # [place] # Seg Neutrophils % Seg Neuts % (Manual) Lymphocytes % (Manual) Seg Neutrophils # Seg Neutrophils # Man Lymphocytes # (Manual) Monocytes # (Manual) POC ABG pH ABG pH POC ABG pCO2 POC ABG pO2 ABG pO2 ABG HCO3 ABG Base Excess ABG Hemoglobin Oxyhemoglobin Sodium Potassium Chloride Carbon Dioxide BUN Creatinine Glucose POC Glucose 113 H 124 H 128 H Calcium Phosphorus Magnesium Direct Bilirubin AST Alkaline Phosphatase C-Reactive Protein Serum Total Protein Total Protein Albumin Prealbumin Zrpon-9-Gtivtzwmd Mqskl-5-Omqkugehi Gamma Globulins PEP Interpretation Triglycerides Urine pH Urine Creatinine Urine Total Protein Vancomycin Trough Digoxin Crossmatch 11/19/19 11/19/19 11/20/19 00:54 08:03 11:31 WBC RBC Hgb Hct MCV MCH MCHC RDW Plt Count Lymph % (Auto) [place] % (Auto) Lymph # [place] # Seg Neutrophils % Seg Neuts % (Manual) Lymphocytes % (Manual) Seg Neutrophils # Seg Neutrophils # Man Lymphocytes # (Manual) Monocytes # (Manual) POC ABG pH ABG pH POC ABG pCO2 POC ABG pO2 ABG pO2 ABG HCO3 ABG Base Excess ABG Hemoglobin Oxyhemoglobin Sodium Potassium Chloride Carbon Dioxide BUN Creatinine Glucose POC Glucose 130 H 122 H 136 H Calcium Phosphorus Magnesium Direct Bilirubin AST Alkaline Phosphatase C-Reactive Protein Serum Total Protein Total Protein Albumin Prealbumin Bwosq-5-Jtflxpttg Pwvch-6-Sfcwmxnwh Gamma Globulins PEP Interpretation Triglycerides Urine pH Urine Creatinine Urine Total Protein Vancomycin Trough Digoxin Crossmatch 11/20/19 11/20/19 11/20/19 17:17 Unknown Unknown WBC 17.8 H RBC 2.70 L Hgb 7.3 L Hct 22.5 L MCV 83 L MCH 27 L MCHC RDW 17.0 H Plt Count Lymph % (Auto) [place] % (Auto) Lymph # [place] # Seg Neutrophils % Seg Neuts % (Manual) Lymphocytes % (Manual) Seg Neutrophils # Seg Neutrophils # Man Lymphocytes # (Manual) Monocytes # (Manual) POC ABG pH ABG pH POC ABG pCO2 POC ABG pO2 ABG pO2 ABG HCO3 ABG Base Excess ABG Hemoglobin Oxyhemoglobin Sodium 132 L Potassium 3.5 L Chloride 95.4 L Carbon Dioxide 21 L BUN Creatinine 0.6 L Glucose 108 H POC Glucose 126 H Calcium Phosphorus Magnesium Direct Bilirubin AST Alkaline Phosphatase C-Reactive Protein Serum Total Protein Total Protein Albumin Prealbumin Jpruh-4-Fhuwehsbs Nbhuk-3-Kghawgwqq Gamma Globulins PEP Interpretation Triglycerides Urine pH Urine Creatinine Urine Total Protein Vancomycin Trough Digoxin Crossmatch 11/21/19 11/21/19 11/21/19 07:40 07:40 12:29 WBC 15.1 H RBC 2.61 L Hgb 7.0 L Hct 21.5 L MCV 82 L MCH 27 L MCHC RDW 17.0 H Plt Count Lymph % (Auto) 9.0 L [place] % (Auto) 7.7 H Lymph # [place] # 1.2 H Seg Neutrophils % 81.5 H Seg Neuts % (Manual) Lymphocytes % (Manual) Seg Neutrophils # 12.3 H Seg Neutrophils # Man Lymphocytes # (Manual) Monocytes # (Manual) POC ABG pH ABG pH POC ABG pCO2 POC ABG pO2 ABG pO2 ABG HCO3 ABG Base Excess ABG Hemoglobin Oxyhemoglobin Sodium Potassium Chloride Carbon Dioxide BUN Creatinine 0.5 L Glucose POC Glucose 118 H Calcium Phosphorus Magnesium Direct Bilirubin AST Alkaline Phosphatase C-Reactive Protein Serum Total Protein Total Protein Albumin Prealbumin Goqea-5-Ntdepcwgd Flldo-9-Bvmcwqhwy Gamma Globulins PEP Interpretation Triglycerides Urine pH Urine Creatinine Urine Total Protein Vancomycin Trough Digoxin Crossmatch 11/21/19 11/22/19 11/23/19 13:32 08:13 11:48 WBC 13.7 H RBC 2.99 L Hgb 8.2 L Hct 24.7 L MCV 83 L MCH 27 L MCHC RDW 16.5 H Plt Count Lymph % (Auto) 7.8 L [place] % (Auto) 7.5 H Lymph # 1.1 L [place] # 1.0 H Seg Neutrophils % 83.3 H Seg Neuts % (Manual) Lymphocytes % (Manual) Seg Neutrophils # 11.4 H Seg Neutrophils # Man Lymphocytes # (Manual) Monocytes # (Manual) POC ABG pH ABG pH POC ABG pCO2 POC ABG pO2 ABG pO2 ABG HCO3 ABG Base Excess ABG Hemoglobin Oxyhemoglobin Sodium Potassium Chloride Carbon Dioxide BUN Creatinine Glucose POC Glucose 159 H Calcium Phosphorus Magnesium Direct Bilirubin AST Alkaline Phosphatase C-Reactive Protein Serum Total Protein Total Protein Albumin Prealbumin Hhblz-7-Kjzhqkxqk Zlrxb-4-Dosrdfqzn Gamma Globulins PEP Interpretation Triglycerides Urine pH Urine Creatinine Urine Total Protein Vancomycin Trough Digoxin Crossmatch See Detail 11/23/19 16:41 WBC RBC Hgb Hct MCV MCH MCHC RDW Plt Count Lymph % (Auto) [place] % (Auto) Lymph # [place] # Seg Neutrophils % Seg Neuts % (Manual) Lymphocytes % (Manual) Seg Neutrophils # Seg Neutrophils # Man Lymphocytes # (Manual) Monocytes # (Manual) POC ABG pH ABG pH POC ABG pCO2 POC ABG pO2 ABG pO2 ABG HCO3 ABG Base Excess ABG Hemoglobin Oxyhemoglobin Sodium Potassium Chloride Carbon Dioxide BUN Creatinine Glucose POC Glucose 131 H Calcium Phosphorus Magnesium Direct Bilirubin AST Alkaline Phosphatase C-Reactive Protein Serum Total Protein Total Protein Albumin Prealbumin Kxdpn-7-Zgsnyarsk Prmoy-5-Aeqkplwfu Gamma Globulins PEP Interpretation Triglycerides Urine pH Urine Creatinine Urine Total Protein Vancomycin Trough Digoxin Crossmatch
[2019-11-24 18:25] LABS: Mean Corpuscular HGB Conc 33 % (32-34); Mean Corpuscular Volume 82 fl (84-94); Platelet Count 421 K/mm3 (140-440); Red Blood Count 2.94 M/mm3 (3.65-5.03); Red Cell Distribution Width 16.4 % (13.2-15.2)
[2019-11-24 18:46] LABS: BUN/Creatinine Ratio 14; Blood Urea Nitrogen 7 mg/dL (9-20); Calcium 8.5 mg/dL (8.4-10.2); Hemolysis Index 1
[2019-11-24] MEDS: ENOXAPARIN 40 MG/0.4 ML INJ SUB-Q SCH (21:02)
[2019-11-25] MEDS: INSULIN LISPRO 100 UNIT/ML SUB-Q SCH ×4 (00:53→18:11)
[2019-11-25] MEDS: METOPROLOL TARTRATE 50 MG TAB PO SCH ×3 (05:30→22:03)
[2019-11-25 07:39] LABS: Basophils # (Auto) 0.1 K/mm3 (0.0-0.1); Basophils % (Auto) 0.5 % (0.0-1.8); Eosinophils # (Auto) 0.1 K/mm3 (0.0-0.4); Hematocrit 24.6 % (35.5-45.6); Hemoglobin 8.2 gm/dl (11.8-15.2); Lymphocytes # (Auto) 1.4 K/mm3 (1.2-5.4); Lymphocytes % (Auto) 10.3 % (13.4-35.0); Mean Corpuscular HGB Conc 33 % (32-34); Mean Corpuscular Volume 81 fl (84-94); Monocytes # (Auto) 0.9 K/mm3 (0.0-0.8); Platelet Count 441 K/mm3 (140-440); Red Blood Count 3.03 M/mm3 (3.65-5.03); Red Cell Distribution Width 16.8 % (13.2-15.2)
[2019-11-25 07:59] LABS: BUN/Creatinine Ratio 13; Blood Urea Nitrogen 5 mg/dL (9-20); Calcium 8.7 mg/dL (8.4-10.2); Hemolysis Index 1
[2019-11-25] MEDS: IPRATROPIUM/ALBUTEROL SULFATE 3 ML AMPUL.NEB IH SCH ×4 (08:26→21:38)
[2019-11-25] MEDS: ARFORMOTEROL 15 MCG/2 ML NEBU IH SCH ×2 (08:27→21:38)
[2019-11-25] MEDS: BUDESONIDE 0.5 MG/2 ML NEBU IH SCH ×2 (08:27→21:38)
[2019-11-25] MEDS: CITALOPRAM 20 MG TAB PO SCH (10:09)
[2019-11-25] MEDS: PANTOPRAZOLE 40 MG TAB PO SCH (10:09)
[2019-11-25] MEDS: AMIODARONE 200 MG TAB PO SCH (10:12)
[2019-11-25] MEDS: HYDROcodone/ACETAMINOPHEN 10-325MG TAB PO PRN ×2 (10:12→22:03)
--- NOTE | 2019-11-25 13:06 | Progress Note ---
Assessment and Plan Assessment and plan: Acute blood loss anemia -H/H has slowly trended down to 7.0 today. -Continue to monitor H&H and transfuse 1 unit PRBCs. Sepsis, improved. Completed Abx per ID. Dehiscence of closure of fascia s/p ex lap with closure of abdominal wall and wound vac placement 10/05 ; s/p Re-exploration, washout, transection of colon, Abthera placement -10/13; s/p abd washout, partial omentectomy, partial colectomy with colostomy - 10/16. s/p abd washout, feeding tube placement, AbThera placement - 10/19; Abdominal washout and closure - 10/22. Acute Respiratory failure with hypoxia -Extubated 10/25/19 -Re-intubated 10/30 -Patient self extubated morning of 11/04, now on Oxygen by NC -Multifactorial secondary to pneumonia, pneumothorax and COPD Left pneumothorax s/p chest tube placed 10/30 Resolved. Left lower lobe pneumonia -CTA chest showed left lower lobe consolidation with pleural effusion COPD -Stable -cont neb tx GUILLERMO on CKD -due to ATN due to sepsis -Resolved. -No hydronephrosis on CT Acute Toxic Metabolic Encephalopathy/Delirium Tremens. Resolved. -Continue CIWA protocol due to hx of ETOH abuse, 6packs a day -Head CT scan negative for acute findings SVT, Atrial fib/flutter with RVR -treated with adenosine x1 -off amiodarone and cardizem drip. On oral amiodarone -HR currently controlled -Cardiology following Hx of Hypertension -Stable Hyperlipidemia -stable Atypical chest pain -probably secondary to pneumonitis -troponin levels neg Hx of PA/CAD -s/p PCI of the circumflex and second vessel POBA of the distal LAD occlusion. Left ventricle fraction of 45-50%. Moderate Protein calorie malnutrition -Nutrition following Tobacco abuse -Cessation recommended Morbid obesity with BMI of 43.4 -Lifestyle modification recommended DVT and GI ppx: Lovenox/PPI Disposition. Plan is to discharge to acute rehab when accepted History Interval history: No new issues overnight. Hospitalist Physical - Constitutional Vitals: Temp Pulse Resp BP Pulse Ox 97.6 F 85 20 106/54 93 11/25/19 11:43 11/25/19 11:43 11/25/19 11:43 11/25/19 11:43 11/25/19 11:43 General appearance: Present: no acute distress, obese - EENT Eyes: Present: PERRL, EOM intact ENT: hearing intact, clear oral mucosa, dentition normal - Neck Neck: Present: supple, normal ROM - Respiratory Respiratory effort: normal Respiratory: bilateral: CTA - Cardiovascular Rhythm: regular Heart Sounds: Present: S1 & S2. Absent: gallop, rub - Extremities Extremities: no ischemia, No edema, Full ROM - Abdominal General gastrointestinal: soft, non-tender, non-distended, normal bowel sounds - Integumentary Integumentary: Present: clear, warm, dry - Neurologic Neurologic: CNII-XII intact, moves all extremities Results - Labs CBC & Chem 7: 11/25/19 07:23 11/25/19 07:23 Labs: Laboratory Last Values WBC 13.6 K/mm3 (4.5-11.0) H 11/25/19 07:23 RBC 3.03 M/mm3 (3.65-5.03) L 11/25/19 07:23 Hgb 8.2 gm/dl (11.8-15.2) L 11/25/19 07:23 Hct 24.6 % (35.5-45.6) L 11/25/19 07:23 MCV 81 fl (84-94) L 11/25/19 07:23 MCH 27 pg (28-32) L 11/25/19 07:23 MCHC 33 % (32-34) 11/25/19 07:23 RDW 16.8 % (13.2-15.2) H 11/25/19 07:23 Plt Count 441 K/mm3 (140-440) H 11/25/19 07:23 Lymph % (Auto) 10.3 % (13.4-35.0) L 11/25/19 07:23 Green % (Auto) 7.0 % (0.0-7.3) 11/25/19 07:23 Eos % (Auto) 1.0 % (0.0-4.3) 11/25/19 07:23 Baso % (Auto) 0.5 % (0.0-1.8) 11/25/19 07:23 Lymph # 1.4 K/mm3 (1.2-5.4) 11/25/19 07:23 Green # 0.9 K/mm3 (0.0-0.8) H 11/25/19 07:23 Eos # 0.1 K/mm3 (0.0-0.4) 11/25/19 07:23 Baso # 0.1 K/mm3 (0.0-0.1) 11/25/19 07:23 Add Manual Diff Complete 10/16/19 09:20 Total Counted 100 10/16/19 09:20 Seg Neutrophils % 81.2 % (40.0-70.0) H 11/25/19 07:23 Seg Neuts % (Manual) 79.0 % (40.0-70.0) H 10/16/19 09:20 Band Neutrophils % 12.0 % 10/16/19 09:20 Lymphocytes % (Manual) 4.0 % (13.4-35.0) L 10/16/19 09:20 Reactive Lymphs % (Man) 0 % 10/16/19 09:20 Monocytes % (Manual) 2.0 % (0.0-7.3) 10/16/19 09:20 Eosinophils % (Manual) 0 % (0.0-4.3) 10/16/19 09:20 Basophils % (Manual) 0 % (0.0-1.8) 10/16/19 09:20 Metamyelocytes % 2.0 % 10/16/19 09:20 Myelocytes % 1.0 % 10/16/19 09:20 Promyelocytes % 0 % 10/16/19 09:20 Blast Cells % 0 % 10/16/19 09:20 Nucleated RBC % Not Reportable 10/16/19 09:20 Seg Neutrophils # 11.1 K/mm3 (1.8-7.7) H 11/25/19 07:23 Seg Neutrophils # Man 11.5 K/mm3 (1.8-7.7) H 10/16/19 09:20 Band Neutrophils # 1.8 K/mm3 10/16/19 09:20 Lymphocytes # (Manual) 0.6 K/mm3 (1.2-5.4) L 10/16/19 09:20 Abs React Lymphs (Man) 0.0 K/mm3 10/16/19 09:20 Monocytes # (Manual) 0.3 K/mm3 (0.0-0.8) 10/16/19 09:20 Eosinophils # (Manual) 0.0 K/mm3 (0.0-0.4) 10/16/19 09:20 Basophils # (Manual) 0.0 K/mm3 (0.0-0.1) 10/16/19 09:20 Metamyelocytes # 0.3 K/mm3 10/16/19 09:20 Myelocytes # 0.1 K/mm3 10/16/19 09:20 Promyelocytes # 0.0 K/mm3 10/16/19 09:20 Blast Cells # 0.0 K/mm3 10/16/19 09:20 WBC Morphology Not Reportable 10/16/19 09:20 Hypersegmented Neuts Not Reportable 10/16/19 09:20 Hyposegmented Neuts Not Reportable 10/16/19 09:20 Hypogranular Neuts Not Reportable 10/16/19 09:20 Smudge Cells Not Reportable 10/16/19 09:20 Toxic Granulation Not Reportable 10/16/19 09:20 Toxic Vacuolation Not Reportable 10/16/19 09:20 Dohle Bodies Not Reportable 10/16/19 09:20 Pelger-Huet Anomaly Not Reportable 10/16/19 09:20 Andres Rods Not Reportable 10/16/19 09:20 Platelet Estimate Consistent w auto 10/16/19 09:20 Clumped Platelets Not Reportable 10/16/19 09:20 Plt Clumps, EDTA Not Reportable 10/16/19 09:20 Large Platelets Not Reportable 10/16/19 09:20 Giant Platelets Not Reportable 10/16/19 09:20 Platelet Satelliting Not Reportable 10/16/19 09:20 Plt Morphology Comment Not Reportable 10/16/19 09:20 RBC Morphology Not Reportable 10/16/19 09:20 Dimorphic RBCs Not Reportable 10/16/19 09:20 Polychromasia Few 10/16/19 09:20 Hypochromasia Few 10/16/19 09:20 Poikilocytosis Not Reportable 10/16/19 09:20 Anisocytosis Not Reportable 10/16/19 09:20 Microcytosis Not Reportable 10/16/19 09:20 Macrocytosis Not Reportable 10/16/19 09:20 Spherocytes Not Reportable 10/16/19 09:20 Pappenheimer Bodies Not Reportable 10/16/19 09:20 Sickle Cells Not Reportable 10/16/19 09:20 Target Cells Few 10/16/19 09:20 Tear Drop Cells Not Reportable 10/16/19 09:20 Ovalocytes Not Reportable 10/16/19 09:20 Helmet Cells Not Reportable 10/16/19 09:20 [place] Bodies Not Reportable 10/16/19 09:20 [place] Rings Not Reportable 10/16/19 09:20 [place] Cells Not Reportable 10/16/19 09:20 Bite Cells Not Reportable 10/16/19 09:20 Crenated Cell Not Reportable 10/16/19 09:20 Elliptocytes Not Reportable 10/16/19 09:20 Acanthocytes (Spur) Not Reportable 10/16/19 09:20 Rouleaux Not Reportable 10/16/19 09:20 Hemoglobin C Crystals Not Reportable 10/16/19 09:20 Schistocytes Not Reportable 10/16/19 09:20 Malaria parasites Not Reportable 10/16/19 09:20 Toni Bodies Not Reportable 10/16/19 09:20 Hem Pathologist Commnt No 10/16/19 09:20 POC ABG pH 7.422 (7.35-7.45) 11/03/19 04:28 ABG pH 7.390 pH Units (7.350-7.450) 10/23/19 04:47 POC ABG pCO2 45.4 (35-45) H 11/03/19 04:28 ABG pCO2 48.4 mm Hg 10/23/19 04:47 POC ABG pO2 83 (80-105) 11/03/19 04:28 ABG pO2 68.9 mm Hg (80.0-90.0) L 10/23/19 04:47 POC ABG HCO3 29.6 (22-26 mml/L) 11/03/19 04:28 ABG HCO3 28.7 mmol/L (20.0-26.0) H 10/23/19 04:47 POC ABG Total CO2 31 (23-27mmol/L) 11/03/19 04:28 POC ABG O2 Sat 96 11/03/19 04:28 ABG O2 Saturation 96.6 % (95.0-99.0) 10/23/19 04:47 ABG O2 Content 8.8 (0.0-44) 10/23/19 04:47 POC ABG Base Excess 5 ((-2) - (+3)mmol/L) 11/03/19 04:28 ABG Base Excess 3.4 mmol/L (-2.0-3.0) H 10/23/19 04:47 ABG Hemoglobin 6.6 gm/dl (14.0-18.0) L 10/23/19 04:47 ABG Carboxyhemoglobin 2.1 % (0.0-5.0) 10/23/19 04:47 ABG Methemoglobin 0.5 % (0.0-1.5) 10/23/19 04:47 Oxyhemoglobin 94.1 % (95.0-99.0) L 10/23/19 04:47 FiO2 40 % 11/03/19 04:28 Sodium 135 mmol/L (137-145) L 11/25/19 07:23 Potassium 3.4 mmol/L (3.6-5.0) L 11/25/19 07:23 Chloride 95.0 mmol/L (98-107) L 11/25/19 07:23 Carbon Dioxide 24 mmol/L (22-30) 11/25/19 07:23 Anion Gap 19 mmol/L 11/25/19 07:23 BUN 5 mg/dL (9-20) L 11/25/19 07:23 Creatinine 0.4 mg/dL (0.8-1.5) L 11/25/19 07:23 Estimated GFR > 60 ml/min 11/25/19 07:23 BUN/Creatinine Ratio 13 % 11/25/19 07:23 Glucose 82 mg/dL (75-100) 11/25/19 07:23 POC Glucose 80 (70-105) 11/25/19 06:11 Hemoglobin A1c 5.7 % (4-6) 10/06/19 05:36 Lactic Acid 1.10 mmol/L (0.7-2.0) 10/13/19 04:20 Calcium 8.7 mg/dL (8.4-10.2) 11/25/19 07:23 Ionized Calcium 5.2 mg/dL (4.8-5.6) 10/18/19 07:41 Phosphorus 2.70 mg/dL (2.5-4.5) 11/02/19 12:43 Magnesium 2.40 mg/dL (1.7-2.3) H 11/02/19 12:43 Total Bilirubin 1.10 mg/dL (0.1-1.2) 10/26/19 06:15 Direct Bilirubin 0.7 mg/dL (0-0.2) H 10/23/19 10:44 Indirect Bilirubin 0.1 mg/dL 10/23/19 10:44 AST 23 units/L (5-40) 10/26/19 06:15 ALT 13 units/L (7-56) 10/26/19 06:15 Alkaline Phosphatase 148 units/L (35-129) H 10/26/19 06:15 Ammonia 49.0 umol/L (25-60) 10/13/19 04:20 Troponin T < 0.010 ng/mL (0.00-0.029) 10/09/19 17:23 C-Reactive Protein 30.60 mg/dL (0.00-1.30) H 10/15/19 04:32 Serum Total Protein 5.2 g/dL (6.1-8.1) L 10/11/19 09:00 Total Protein 5.9 g/dL (6.3-8.2) L 10/26/19 06:15 Albumin 2.4 g/dL (3.9-5) L 10/26/19 06:15 Albumin/Globulin Ratio 0.7 % 10/26/19 06:15 Prealbumin 0.030 g/L (0.200-0.400) L 10/15/19 04:32 Euaga-5-Qtklcyody See scanned result 10/11/19 Unknown [id number]-[id number] See scanned result 10/11/19 Unknown Beta Globulins See scanned result 10/11/19 Unknown Gamma Globulins See scanned result 10/11/19 Unknown Abnorm Protein Band 1 see below 10/11/19 09:00 PEP Interpretation See scanned result 10/11/19 Unknown Triglycerides 185 mg/dL (2-149) H 10/26/19 06:15 Urine Color Yellow (Yellow) 10/26/19 Unknown Urine Turbidity Clear (Clear) 10/26/19 Unknown Urine pH 9.0 (5.0-7.0) H 10/26/19 Unknown Ur Specific [place] 1.011 (1.003-1.030) 10/26/19 Unknown Urine Protein 30 mg/dl mg/dL (Negative) 10/26/19 Unknown Urine Glucose (UA) Neg mg/dL (Negative) 10/26/19 Unknown Urine Ketones Neg mg/dL (Negative) 10/26/19 Unknown Urine Blood Neg (Negative) 10/26/19 Unknown Urine Nitrite Neg (Negative) 10/26/19 Unknown Urine Bilirubin Neg (Negative) 10/26/19 Unknown Urine Urobilinogen < 2.0 mg/dL (<2.0) 10/26/19 Unknown Ur Leukocyte Esterase Neg (Negative) 10/26/19 Unknown Urine WBC (Auto) 1.0 /HPF (0.0-6.0) 10/26/19 Unknown Urine RBC (Auto) 1.0 /HPF (0.0-6.0) 10/26/19 Unknown Urine Bacteria (Auto) 1+ /HPF (Negative) 10/11/19 06:23 Urine Mucus Few /HPF 10/26/19 Unknown Urine Eosinophils None seen (None Seen) 10/11/19 06:23 Ur Random Creatinine See scanned result 10/11/19 Unknown U Random Total Protein See scanned result 10/11/19 Unknown Urine Creatinine 116.8 mg/dL (0.1-20.0) H 10/11/19 06:23 Urine Creatinine 118.2 mg/dL (0.1-20.0) H 10/11/19 06:23 Protein/Creatinin Ratio See scanned result 10/11/19 Unknown Urine Sodium 14 mmol/L 10/11/19 06:23 Urine Total Protein 104 mg/dL (5-11.8) H 10/11/19 06:23 Urine Total Protein 105 mg/dL (5-11.8) H 10/11/19 06:23 U Abnormal Prot Band 1 See scanned result 10/11/19 Unknown U Abnormal Prot Band 2 See scanned result 10/11/19 Unknown U Abnormal Prot Band 3 See scanned result 10/11/19 Unknown Vancomycin Trough 5.7 ug/mL (5.0-20.0) 11/05/19 09:00 Random Vancomycin 9.6 ug/mL (0-40.0) 11/03/19 03:42 Digoxin 0.7 ng/mL (0.9-2.0) L 10/19/19 04:21 Blood Type A POSITIVE 11/21/19 13:32 Antibody Screen Negative 11/21/19 13:32 Crossmatch See Detail 11/21/19 13:32 Active Medications - Current Medications Current Medications: Generic Name Dose Route Start Last Admin Trade Name Freq PRN Reason Stop Dose Admin Acetaminophen 650 mg 11/24/19 12:28 Tylenol PO Q6H PRN Pain, Mild (1-3) Acetaminophen/Hydrocodone Bitart 1 each 11/24/19 12:27 11/25/19 10:12 [place] 10/325 PO 1 each Q6H PRN Administration Pain, Moderate (4-6) Albuterol/Ipratropium 1 ampul 11/23/19 08:00 11/25/19 08:26 Duoneb *Not For Prn Use* IH 1 ampul TIDRT VERÓNICA Administration Amiodarone HCl 200 mg 10/23/19 13:00 11/25/19 10:12 Cordarone PO 200 mg QDAY VERÓNICA Administration Lipase/Protease/Amylase 1 each 10/20/19 10:37 Pancreazanamika Moreno 10,500 Unit FEEDTUBE PRN PRN For Clogged Feeding Tube Arformoterol Tartrate 15 mcg 10/06/19 08:30 11/25/19 08:27 Brovana Nebu IH 15 mcg Q12HRT VERÓNICA Administration Budesonide 0.5 mg 10/07/19 12:20 11/25/19 08:27 Pulmicort IH 0.5 mg Q12HRT VERÓNICA Administration Citalopram Hydrobromide 20 mg 10/27/19 12:00 11/25/19 10:09 Celexa PO 20 mg DAILY VERÓNICA Administration Diphenhydramine HCl 25 mg 11/17/19 20:15 11/17/19 20:58 Benadryl PO 25 mg Q6H PRN Administration Itching Enoxaparin Sodium 40 mg 11/05/19 22:00 11/24/19 21:02 Enoxaparin SUB-Q 40 mg QDAY@2200 VERÓNICA Administration Haloperidol Lactate 5 mg 10/25/19 18:22 11/12/19 03:33 Haldol IV 5 mg Q6H PRN Administration Agitation Hydralazine HCl 10 mg 10/28/19 14:09 11/02/19 15:34 Apresoline IV 10 mg Q4HR PRN Administration Hypertension Hydromorphone HCl 1 mg 11/24/19 12:28 Dilaudid IV Q4H PRN Pain , Severe (7-10) Insulin Human Lispro 0 unit 10/14/19 12:00 11/25/19 06:04 Humalog SUB-Q Not Given Q6HR [facility] Protocol Metoprolol Tartrate 2.5 mg 10/15/19 15:34 11/01/19 18:00 Metoprolol IV 2.5 mg Q4HR PRN Administration HR >130 Metoprolol Tartrate 12.5 mg 11/21/19 16:00 11/25/19 05:30 Metoprolol PO Not Given Q8HR [facility] Multi-Ingred Cream/Lotion/Oil/Oint 1 applic 10/14/19 02:19 Artificial Tears Ophth Oint OU Q4HR PRN Dry Eye(s) Pantoprazole Sodium 40 mg 11/20/19 10:00 11/25/19 10:09 Protonix PO 40 mg DAILY VERÓNICA Administration Simple Syrup 15 ml 10/20/19 10:37 Simple Syrup FEEDTUBE PRN PRN Hypoglycemia Simple Syrup 30 ml 10/20/19 10:37 Simple Syrup FEEDTUBE PRN PRN Hypoglycemia Sodium Bicarbonate 325 mg 10/20/19 10:37 11/14/19 05:59 Sodium Bicarbonate FEEDTUBE 325 mg PRN PRN Administration For Clogged Feeding Tube Sodium Chloride 10 ml 11/07/19 19:32 11/24/19 21:03 Sodium Chloride Flush Syringe 10 Ml IV 10 ml PRN PRN Administration LINE FLUSH Zolpidem Tartrate 5 mg 11/10/19 21:00 11/11/19 03:30 Ambien FEEDTUBE 5 mg QHS PRN Administration Sleep Nutrition/Malnutrition Assess - Dietary Evaluation Nutrition/Malnutrition Findings: Nutrition Notes Start: 10/08/19 11:36 Freq: Status: Active Protocol: Document 11/22/19 12:23 JENN (Rec: 11/22/19 12:35 JENN [id number]) Co-Sign 11/22/19 12:23 LP Nutrition Notes Initial or Follow up Reassessment Current Diagnosis Acute Kidney Injury,COPD, Hypertension Other Pertinent Diagnosis intra-abdominal infection, disruption of bowel anastomosis, LE edema Current Diet Regular Labs/Tests Cr 0.5 Pertinent Medications Dilaudid Height 6 ft Weight 107.2 kg [place] Body Weight (kg) 80.90 BMI 32.0 Weight change and time frame Wt change noted. [facility] wt Weight Status Morbidly Obese Subjective/Other Information F/U for PO intakes. Pt stated his appetite was good. Pt ate about 75% of breakfast. Pt stated that he got outside food for all meals yesterday. Percent of energy/protein needs met: unable to determine Burn Absent Trauma Absent GI Symptoms None Current % PO Good (75-100%) Minimum of two criteria No Fluid Accumulation Mild (non-severe) #1 Nutrition Diagnosis Increased nutrient needs ( specify in comment below) Diagnosis Progress(for reassessment Continues documentation) Is patient on ventilator? No Is Patient Ambulatory and/or Out of Bed No REE-([facility]-confined to bed) 2332.092 Kcal/Kg value to use for calculation 19 Approximate Energy Requirements Using 2037 kcal/Kg Calculation Used for Recommendations Kcal/kg Additional Notes Protein: 136-169g (1.2-1.5g/kg ) AdjBW 113kg Fluid 1 ml/kcal or per MD Nutrition Intervention Change Diet Order: Continue regular Goal #1 Meet at least 80% of energy and protein needs via PO intakes Anticipated Discharge Needs: Regular diet Follow-Up By: 11/29/19 Additional Comments F/U for PO intakes
[2019-11-25] MEDS: ENOXAPARIN 40 MG/0.4 ML INJ SUB-Q SCH (22:03)
[2019-11-26] MEDS: INSULIN LISPRO 100 UNIT/ML SUB-Q SCH ×4 (00:17→18:47)
[2019-11-26] MEDS: HYDROmorphone 2 MG/1 ML INJ IV PRN (01:09)
[2019-11-26] MEDS: METOPROLOL TARTRATE 50 MG TAB PO SCH ×3 (06:10→22:16)
[2019-11-26] MEDS: IPRATROPIUM/ALBUTEROL SULFATE 3 ML AMPUL.NEB IH SCH ×3 (08:32→22:51)
[2019-11-26] MEDS: BUDESONIDE 0.5 MG/2 ML NEBU IH SCH ×2 (08:32→22:50)
[2019-11-26] MEDS: ARFORMOTEROL 15 MCG/2 ML NEBU IH SCH ×2 (08:32→22:51)
--- NOTE | 2019-11-26 09:39 | Event Note ---
Date: 11/26/19 Stopped by to see patient. He was sleeping. No events noted overnight. Will check him another time.
[2019-11-26] MEDS: AMIODARONE 200 MG TAB PO SCH (10:45)
[2019-11-26] MEDS: CITALOPRAM 20 MG TAB PO SCH (10:45)
[2019-11-26] MEDS: PANTOPRAZOLE 40 MG TAB PO SCH (10:45)
[2019-11-26] MEDS: HYDROcodone/ACETAMINOPHEN 10-325MG TAB PO PRN (10:50)
[2019-11-26] MEDS: ACETAMINOPHEN 500 MG TAB PO PRN (11:50)
--- NOTE | 2019-11-26 13:46 | Progress Note ---
Assessment and Plan Assessment and plan: Acute blood loss anemia s/p PRBCs. H&H currently stable. Sepsis, improved. Completed Abx per ID. Dehiscence of closure of fascia s/p ex lap with closure of abdominal wall and wound vac placement 10/05 ; s/p Re-exploration, washout, transection of colon, Abthera placement -10/13; s/p abd washout, partial omentectomy, partial colectomy with colostomy - 10/16. s/p abd washout, feeding tube placement, AbThera placement - 10/19; Abdominal washout and closure - 10/22. Acute Respiratory failure with hypoxia -Extubated 10/25/19 -Re-intubated 10/30 -Patient self extubated morning of 11/04, now on Oxygen by NC -Multifactorial secondary to pneumonia, pneumothorax and COPD Left pneumothorax s/p chest tube placed 10/30 Resolved. Left lower lobe pneumonia -CTA chest showed left lower lobe consolidation with pleural effusion COPD -Stable -cont neb tx GUILLERMO on CKD -due to ATN due to sepsis -Resolved. -No hydronephrosis on CT Acute Toxic Metabolic Encephalopathy/Delirium Tremens. Resolved. -Continue CIWA protocol due to hx of ETOH abuse, 6packs a day -Head CT scan negative for acute findings SVT, Atrial fib/flutter with RVR -treated with adenosine x1 -off amiodarone and cardizem drip. On oral amiodarone -HR currently controlled -Cardiology following Hx of Hypertension -Stable Hyperlipidemia -stable Atypical chest pain -probably secondary to pneumonitis -troponin levels neg Hx of [place]/CAD -s/p PCI of the circumflex and second vessel POBA of the distal LAD occlusion. Left ventricle fraction of 45-50%. Moderate Protein calorie malnutrition -Nutrition following Tobacco abuse -Cessation recommended Morbid obesity with BMI of 43.4 -Lifestyle modification recommended DVT and GI ppx: Lovenox/PPI Disposition. Plan is to discharge to acute rehab when accepted History Interval history: No new issues overnight. Hospitalist Physical - Constitutional Vitals: Temp Pulse Resp BP Pulse Ox 99.3 F 90 18 107/46 91 11/26/19 07:57 11/26/19 08:00 11/26/19 08:00 11/26/19 07:57 11/26/19 08:33 General appearance: Present: no acute distress, obese - EENT Eyes: Present: PERRL, EOM intact ENT: hearing intact, clear oral mucosa, dentition normal - Neck Neck: Present: supple, normal ROM - Respiratory Respiratory effort: normal Respiratory: bilateral: CTA - Cardiovascular Rhythm: regular Heart Sounds: Present: S1 & S2. Absent: gallop, rub - Extremities Extremities: no ischemia, No edema, Full ROM - Abdominal General gastrointestinal: soft, non-tender, non-distended, normal bowel sounds - Integumentary Integumentary: Present: clear, warm, dry - Neurologic Neurologic: CNII-XII intact, moves all extremities Results - Labs CBC & Chem 7: 11/25/19 07:23 11/25/19 07:23 Labs: Laboratory Last Values WBC 13.6 K/mm3 (4.5-11.0) H 11/25/19 07:23 RBC 3.03 M/mm3 (3.65-5.03) L 11/25/19 07:23 Hgb 8.2 gm/dl (11.8-15.2) L 11/25/19 07:23 Hct 24.6 % (35.5-45.6) L 11/25/19 07:23 MCV 81 fl (84-94) L 11/25/19 07:23 MCH 27 pg (28-32) L 11/25/19 07:23 MCHC 33 % (32-34) 11/25/19 07:23 RDW 16.8 % (13.2-15.2) H 11/25/19 07:23 Plt Count 441 K/mm3 (140-440) H 11/25/19 07:23 Lymph % (Auto) 10.3 % (13.4-35.0) L 11/25/19 07:23 [place] % (Auto) 7.0 % (0.0-7.3) 11/25/19 07:23 Eos % (Auto) 1.0 % (0.0-4.3) 11/25/19 07:23 Baso % (Auto) 0.5 % (0.0-1.8) 11/25/19 07:23 Lymph # 1.4 K/mm3 (1.2-5.4) 11/25/19 07:23 [place] # 0.9 K/mm3 (0.0-0.8) H 11/25/19 07:23 Eos # 0.1 K/mm3 (0.0-0.4) 11/25/19 07:23 Baso # 0.1 K/mm3 (0.0-0.1) 11/25/19 07:23 Add Manual Diff Complete 10/16/19 09:20 Total Counted 100 10/16/19 09:20 Seg Neutrophils % 81.2 % (40.0-70.0) H 11/25/19 07:23 Seg Neuts % (Manual) 79.0 % (40.0-70.0) H 10/16/19 09:20 Band Neutrophils % 12.0 % 10/16/19 09:20 Lymphocytes % (Manual) 4.0 % (13.4-35.0) L 10/16/19 09:20 Reactive Lymphs % (Man) 0 % 10/16/19 09:20 Monocytes % (Manual) 2.0 % (0.0-7.3) 10/16/19 09:20 Eosinophils % (Manual) 0 % (0.0-4.3) 10/16/19 09:20 Basophils % (Manual) 0 % (0.0-1.8) 10/16/19 09:20 Metamyelocytes % 2.0 % 10/16/19 09:20 Myelocytes % 1.0 % 10/16/19 09:20 Promyelocytes % 0 % 10/16/19 09:20 Blast Cells % 0 % 10/16/19 09:20 Nucleated RBC % Not Reportable 10/16/19 09:20 Seg Neutrophils # 11.1 K/mm3 (1.8-7.7) H 11/25/19 07:23 Seg Neutrophils # Man 11.5 K/mm3 (1.8-7.7) H 10/16/19 09:20 Band Neutrophils # 1.8 K/mm3 10/16/19 09:20 Lymphocytes # (Manual) 0.6 K/mm3 (1.2-5.4) L 10/16/19 09:20 Abs React Lymphs (Man) 0.0 K/mm3 10/16/19 09:20 Monocytes # (Manual) 0.3 K/mm3 (0.0-0.8) 10/16/19 09:20 Eosinophils # (Manual) 0.0 K/mm3 (0.0-0.4) 10/16/19 09:20 Basophils # (Manual) 0.0 K/mm3 (0.0-0.1) 10/16/19 09:20 Metamyelocytes # 0.3 K/mm3 10/16/19 09:20 Myelocytes # 0.1 K/mm3 10/16/19 09:20 Promyelocytes # 0.0 K/mm3 10/16/19 09:20 Blast Cells # 0.0 K/mm3 10/16/19 09:20 WBC Morphology Not Reportable 10/16/19 09:20 Hypersegmented Neuts Not Reportable 10/16/19 09:20 Hyposegmented Neuts Not Reportable 10/16/19 09:20 Hypogranular Neuts Not Reportable 10/16/19 09:20 Smudge Cells Not Reportable 10/16/19 09:20 Toxic Granulation Not Reportable 10/16/19 09:20 Toxic Vacuolation Not Reportable 10/16/19 09:20 Dohle Bodies Not Reportable 10/16/19 09:20 Pelger-Huet Anomaly Not Reportable 10/16/19 09:20 Andres Rods Not Reportable 10/16/19 09:20 Platelet Estimate Consistent w auto 10/16/19 09:20 Clumped Platelets Not Reportable 10/16/19 09:20 Plt Clumps, EDTA Not Reportable 10/16/19 09:20 Large Platelets Not Reportable 10/16/19 09:20 Giant Platelets Not Reportable 10/16/19 09:20 Platelet Satelliting Not Reportable 10/16/19 09:20 Plt Morphology Comment Not Reportable 10/16/19 09:20 RBC Morphology Not Reportable 10/16/19 09:20 Dimorphic RBCs Not Reportable 10/16/19 09:20 Polychromasia Few 10/16/19 09:20 Hypochromasia Few 10/16/19 09:20 Poikilocytosis Not Reportable 10/16/19 09:20 Anisocytosis Not Reportable 10/16/19 09:20 Microcytosis Not Reportable 10/16/19 09:20 Macrocytosis Not Reportable 10/16/19 09:20 Spherocytes Not Reportable 10/16/19 09:20 Pappenheimer Bodies Not Reportable 10/16/19 09:20 Sickle Cells Not Reportable 10/16/19 09:20 Target Cells Few 10/16/19 09:20 Tear Drop Cells Not Reportable 10/16/19 09:20 Ovalocytes Not Reportable 10/16/19 09:20 Helmet Cells Not Reportable 10/16/19 09:20 [place] Bodies Not Reportable 10/16/19 09:20 [place] Rings Not Reportable 10/16/19 09:20 [place] Cells Not Reportable 10/16/19 09:20 Bite Cells Not Reportable 10/16/19 09:20 Crenated Cell Not Reportable 10/16/19 09:20 Elliptocytes Not Reportable 10/16/19 09:20 Acanthocytes (Spur) Not Reportable 10/16/19 09:20 Rouleaux Not Reportable 10/16/19 09:20 Hemoglobin C Crystals Not Reportable 10/16/19 09:20 Schistocytes Not Reportable 10/16/19 09:20 Malaria parasites Not Reportable 10/16/19 09:20 Toni Bodies Not Reportable 10/16/19 09:20 Hem Pathologist Commnt No 10/16/19 09:20 POC ABG pH 7.422 (7.35-7.45) 11/03/19 04:28 ABG pH 7.390 pH Units (7.350-7.450) 10/23/19 04:47 POC ABG pCO2 45.4 (35-45) H 11/03/19 04:28 ABG pCO2 48.4 mm Hg 10/23/19 04:47 POC ABG pO2 83 (80-105) 11/03/19 04:28 ABG pO2 68.9 mm Hg (80.0-90.0) L 10/23/19 04:47 POC ABG HCO3 29.6 (22-26 mml/L) 11/03/19 04:28 ABG HCO3 28.7 mmol/L (20.0-26.0) H 10/23/19 04:47 POC ABG Total CO2 31 (23-27mmol/L) 11/03/19 04:28 POC ABG O2 Sat 96 11/03/19 04:28 ABG O2 Saturation 96.6 % (95.0-99.0) 10/23/19 04:47 ABG O2 Content 8.8 (0.0-44) 10/23/19 04:47 POC ABG Base Excess 5 ((-2) - (+3)mmol/L) 11/03/19 04:28 ABG Base Excess 3.4 mmol/L (-2.0-3.0) H 10/23/19 04:47 ABG Hemoglobin 6.6 gm/dl (14.0-18.0) L 10/23/19 04:47 ABG Carboxyhemoglobin 2.1 % (0.0-5.0) 10/23/19 04:47 ABG Methemoglobin 0.5 % (0.0-1.5) 10/23/19 04:47 Oxyhemoglobin 94.1 % (95.0-99.0) L 10/23/19 04:47 FiO2 40 % 11/03/19 04:28 Sodium 135 mmol/L (137-145) L 11/25/19 07:23 Potassium 3.4 mmol/L (3.6-5.0) L 11/25/19 07:23 Chloride 95.0 mmol/L (98-107) L 11/25/19 07:23 Carbon Dioxide 24 mmol/L (22-30) 11/25/19 07:23 Anion Gap 19 mmol/L 11/25/19 07:23 BUN 5 mg/dL (9-20) L 11/25/19 07:23 Creatinine 0.4 mg/dL (0.8-1.5) L 11/25/19 07:23 Estimated GFR > 60 ml/min 11/25/19 07:23 BUN/Creatinine Ratio 13 % 11/25/19 07:23 Glucose 82 mg/dL (75-100) 11/25/19 07:23 POC Glucose 135 (70-105) H 11/26/19 11:35 Hemoglobin A1c 5.7 % (4-6) 10/06/19 05:36 Lactic Acid 1.10 mmol/L (0.7-2.0) 10/13/19 04:20 Calcium 8.7 mg/dL (8.4-10.2) 11/25/19 07:23 Ionized Calcium 5.2 mg/dL (4.8-5.6) 10/18/19 07:41 Phosphorus 2.70 mg/dL (2.5-4.5) 11/02/19 12:43 Magnesium 2.40 mg/dL (1.7-2.3) H 11/02/19 12:43 Total Bilirubin 1.10 mg/dL (0.1-1.2) 10/26/19 06:15 Direct Bilirubin 0.7 mg/dL (0-0.2) H 10/23/19 10:44 Indirect Bilirubin 0.1 mg/dL 10/23/19 10:44 AST 23 units/L (5-40) 10/26/19 06:15 ALT 13 units/L (7-56) 10/26/19 06:15 Alkaline Phosphatase 148 units/L (35-129) H 10/26/19 06:15 Ammonia 49.0 umol/L (25-60) 10/13/19 04:20 Troponin T < 0.010 ng/mL (0.00-0.029) 10/09/19 17:23 C-Reactive Protein 30.60 mg/dL (0.00-1.30) H 10/15/19 04:32 Serum Total Protein 5.2 g/dL (6.1-8.1) L 10/11/19 09:00 Total Protein 5.9 g/dL (6.3-8.2) L 10/26/19 06:15 Albumin 2.4 g/dL (3.9-5) L 10/26/19 06:15 Albumin/Globulin Ratio 0.7 % 10/26/19 06:15 Prealbumin 0.030 g/L (0.200-0.400) L 10/15/19 04:32 [id number] See scanned result 10/11/19 Unknown [id number] See scanned result 10/11/19 Unknown Beta Globulins See scanned result 10/11/19 Unknown Gamma Globulins See scanned result 10/11/19 Unknown Abnorm Protein Band 1 see below 10/11/19 09:00 PEP Interpretation See scanned result 10/11/19 Unknown Triglycerides 185 mg/dL (2-149) H 10/26/19 06:15 Urine Color Yellow (Yellow) 10/26/19 Unknown Urine Turbidity Clear (Clear) 10/26/19 Unknown Urine pH 9.0 (5.0-7.0) H 10/26/19 Unknown Ur Specific [place] 1.011 (1.003-1.030) 10/26/19 Unknown Urine Protein 30 mg/dl mg/dL (Negative) 10/26/19 Unknown Urine Glucose (UA) Neg mg/dL (Negative) 10/26/19 Unknown Urine Ketones Neg mg/dL (Negative) 10/26/19 Unknown Urine Blood Neg (Negative) 10/26/19 Unknown Urine Nitrite Neg (Negative) 10/26/19 Unknown Urine Bilirubin Neg (Negative) 10/26/19 Unknown Urine Urobilinogen < 2.0 mg/dL (<2.0) 10/26/19 Unknown Ur Leukocyte Esterase Neg (Negative) 10/26/19 Unknown Urine WBC (Auto) 1.0 /HPF (0.0-6.0) 10/26/19 Unknown Urine RBC (Auto) 1.0 /HPF (0.0-6.0) 10/26/19 Unknown Urine Bacteria (Auto) 1+ /HPF (Negative) 10/11/19 06:23 Urine Mucus Few /HPF 10/26/19 Unknown Urine Eosinophils None seen (None Seen) 10/11/19 06:23 Ur Random Creatinine See scanned result 10/11/19 Unknown U Random Total Protein See scanned result 10/11/19 Unknown Urine Creatinine 116.8 mg/dL (0.1-20.0) H 10/11/19 06:23 Urine Creatinine 118.2 mg/dL (0.1-20.0) H 10/11/19 06:23 Protein/Creatinin Ratio See scanned result 10/11/19 Unknown Urine Sodium 14 mmol/L 10/11/19 06:23 Urine Total Protein 104 mg/dL (5-11.8) H 10/11/19 06:23 Urine Total Protein 105 mg/dL (5-11.8) H 10/11/19 06:23 U Abnormal Prot Band 1 See scanned result 10/11/19 Unknown U Abnormal Prot Band 2 See scanned result 10/11/19 Unknown U Abnormal Prot Band 3 See scanned result 10/11/19 Unknown Vancomycin Trough 5.7 ug/mL (5.0-20.0) 11/05/19 09:00 Random Vancomycin 9.6 ug/mL (0-40.0) 11/03/19 03:42 Digoxin 0.7 ng/mL (0.9-2.0) L 10/19/19 04:21 Blood Type A POSITIVE 11/21/19 13:32 Antibody Screen Negative 11/21/19 13:32 Crossmatch See Detail 11/21/19 13:32 Active Medications - Current Medications Current Medications: Generic Name Dose Route Start Last Admin Trade Name Freq PRN Reason Stop Dose Admin Acetaminophen 650 mg 11/24/19 12:28 11/26/19 11:50 Tylenol PO 650 mg Q6H PRN Administration Pain, Mild (1-3) Acetaminophen/Hydrocodone Bitart 1 each 11/24/19 12:27 11/26/19 10:50 [place] 10/325 PO 1 each Q6H PRN Administration Pain, Moderate (4-6) Albuterol/Ipratropium 1 ampul 11/23/19 08:00 11/26/19 08:32 Duoneb *Not For Prn Use* IH Not Given TIDRT VERÓNICA Amiodarone HCl 200 mg 10/23/19 13:00 11/26/19 10:45 Cordarone PO 200 mg QDAY VERÓNICA Administration Arformoterol Tartrate 15 mcg 10/06/19 08:30 11/26/19 08:32 Brovana Nebu IH 15 mcg Q12HRT VERÓNICA Administration Budesonide 0.5 mg 10/07/19 12:20 11/26/19 08:32 Pulmicort IH 0.5 mg Q12HRT VERÓNICA Administration Citalopram Hydrobromide 20 mg 10/27/19 12:00 11/26/19 10:45 Celexa PO 20 mg DAILY VERÓNICA Administration Diphenhydramine HCl 25 mg 11/17/19 20:15 11/17/19 20:58 Benadryl PO 25 mg Q6H PRN Administration Itching Enoxaparin Sodium 40 mg 11/05/19 22:00 11/25/19 22:03 Enoxaparin SUB-Q 40 mg QDAY@2200 VERÓNICA Administration Haloperidol Lactate 5 mg 10/25/19 18:22 11/12/19 03:33 Haldol IV 5 mg Q6H PRN Administration Agitation Hydralazine HCl 10 mg 10/28/19 14:09 11/02/19 15:34 Apresoline IV 10 mg Q4HR PRN Administration Hypertension Hydromorphone HCl 1 mg 11/24/19 12:28 11/26/19 01:09 Dilaudid IV 1 mg Q4H PRN Administration Pain , Severe (7-10) Insulin Human Lispro 0 unit 10/14/19 12:00 11/26/19 13:17 Humalog SUB-Q Not Given Q6HR [facility] Protocol Metoprolol Tartrate 2.5 mg 10/15/19 15:34 11/01/19 18:00 Metoprolol IV 2.5 mg Q4HR PRN Administration HR >130 Metoprolol Tartrate 12.5 mg 11/21/19 16:00 11/26/19 06:10 Metoprolol PO 12.5 mg Q8HR VERÓNICA Administration Multi-Ingred Cream/Lotion/Oil/Oint 1 applic 10/14/19 02:19 Artificial Tears Ophth Oint OU Q4HR PRN Dry Eye(s) Pantoprazole Sodium 40 mg 11/20/19 10:00 11/26/19 10:45 Protonix PO 40 mg DAILY VERÓNICA Administration Sodium Chloride 10 ml 11/07/19 19:32 11/25/19 22:03 Sodium Chloride Flush Syringe 10 Ml IV 10 ml PRN PRN Administration LINE FLUSH Zolpidem Tartrate 5 mg 11/10/19 21:00 11/11/19 03:30 Ambien FEEDTUBE 5 mg QHS PRN Administration Sleep Nutrition/Malnutrition Assess - Dietary Evaluation Nutrition/Malnutrition Findings: Nutrition Notes Start: 10/08/19 11:36 Freq: Status: Active Protocol: Document 11/22/19 12:23 JENN (Rec: 11/22/19 12:35 JENN [id number]) Co-Sign 11/22/19 12:23 LP Nutrition Notes Initial or Follow up Reassessment Current Diagnosis Acute Kidney Injury,COPD, Hypertension Other Pertinent Diagnosis intra-abdominal infection, disruption of bowel anastomosis, LE edema Current Diet Regular Labs/Tests Cr 0.5 Pertinent Medications Dilaudid Height 6 ft Weight 107.2 kg [place] Body Weight (kg) 80.90 BMI 32.0 Weight change and time frame Wt change noted. [facility] wt Weight Status Morbidly Obese Subjective/Other Information F/U for PO intakes. Pt stated his appetite was good. Pt ate about 75% of breakfast. Pt stated that he got outside food for all meals yesterday. Percent of energy/protein needs met: unable to determine Burn Absent Trauma Absent GI Symptoms None Current % PO Good (75-100%) Minimum of two criteria No Fluid Accumulation Mild (non-severe) #1 Nutrition Diagnosis Increased nutrient needs ( specify in comment below) Diagnosis Progress(for reassessment Continues documentation) Is patient on ventilator? No Is Patient Ambulatory and/or Out of Bed No REE-(Moffat-St. Jeor-confined to bed) 2332.092 Kcal/Kg value to use for calculation 19 Approximate Energy Requirements Using 2036 kcal/Kg Calculation Used for Recommendations Kcal/kg Additional Notes Protein: 136-169g (1.2-1.5g/kg ) AdjBW 113kg Fluid 1 ml/kcal or per MD Nutrition Intervention Change Diet Order: Continue regular Goal #1 Meet at least 80% of energy and protein needs via PO intakes Anticipated Discharge Needs: Regular diet Follow-Up By: 11/29/19 Additional Comments F/U for PO intakes
[2019-11-26] MEDS: ENOXAPARIN 40 MG/0.4 ML INJ SUB-Q SCH (22:16)
[2019-11-27] MEDS: INSULIN LISPRO 100 UNIT/ML SUB-Q SCH ×4 (01:04→18:22)
[2019-11-27] MEDS: HYDROcodone/ACETAMINOPHEN 10-325MG TAB PO PRN ×4 (01:42→22:14)
[2019-11-27] MEDS: METOPROLOL TARTRATE 50 MG TAB PO SCH ×3 (06:27→22:15)
[2019-11-27] MEDS: IPRATROPIUM/ALBUTEROL SULFATE 3 ML AMPUL.NEB IH SCH ×3 (08:23→21:07)
[2019-11-27] MEDS: BUDESONIDE 0.5 MG/2 ML NEBU IH SCH ×2 (08:23→21:07)
[2019-11-27] MEDS: ARFORMOTEROL 15 MCG/2 ML NEBU IH SCH ×2 (08:24→21:07)
[2019-11-27] MEDS: AMIODARONE 200 MG TAB PO SCH (09:47)
[2019-11-27] MEDS: CITALOPRAM 20 MG TAB PO SCH (09:47)
[2019-11-27] MEDS: PANTOPRAZOLE 40 MG TAB PO SCH (09:47)
--- NOTE | 2019-11-27 09:52 | Progress Note ---
Assessment and Plan - Patient Problems (1) Dehiscence of closure of fascia, superficial or muscular Current Visit: No Status: Acute Qualifiers: Encounter type: initial encounter Qualified Code(s): T81.32XA - Disruption of internal operation (surgical) wound, not elsewhere classified, initial encounter Plan to address problem: Pt stable. s/p ex lap with closure of abdominal wall and wound vac placement (10/05) - POD#53; s/p Re-exploration, washout, transection of colon, Abthera placement - 10/13 - POD#45; s/p abd washout, partial omentectomy, partial colectomy with colostomy - 10/16 POD#42; s/p abd washout, feeding tube placement, AbThera placement - 10/19 - POD#39; Abdominal washout and closure - 10/22 - POD#36 Patient appears stable. Rec: 1) Neuro - self-extubated 11/04. 2) CV - BP normal today. Appreciate hospitalist help with transfusion and adjustment BP meds. 3) Resp - On NC. Small bore CT on left - removed 11/02. 4) GI - Ostomy looks good. Functioning. Sump drains - both are out now. Midline drain - seems to be working well. may eventually become main drain and we can remove the last left sided drain if the output is minimal. Wound Pharmacy Helper - wound looked good on last check. Need to keep catheter in wound to stent open the drainage point. Ostomy - functioning. Gastric Port - May be used as needed for feeds or meds. Will most likely remove when he is scheduled to be transferred to acute rehab. 5) - BUN/Cr stable. 6) ID - Abx per ID. None at this time. 7) Nutrition - Oral nutrition. Check prealbumin on Tuesday - result pending. Passed Speech Eval. 8) DVT prophylaxis - SCDs. Lovenox 9) Family -no family at bedside. 10) PT - will need rehab. 11) Dispo - Ok for transfer to rehab from my perspective. Await Rehab decision on acceptance. Note: Spoke with [facility] surgeon on 11/01/19 about possible transfer. They reviewed the notes that were sent and we discussed the case. They felt that they had nothing else to offer. They agreed with our management. Also agreed that another exploration should not be done. If needed, additional drains can be placed. They did suggest putting a [place] tube in the rectum to decompress that area. (That has been done). This conversation was communicated to the . Please call with questions. Subjective Date of service: 11/27/19 Patient Reports: Positive: no new complaints, feels better, tolerating a regular diet Objective Vital Signs - 12hr 11/26/19 11/26/19 11/26/19 22:00 22:16 22:52 Temperature Pulse Rate 85 90 Pulse Rate [ 87 Anterior Bilateral Throughout] Respiratory Rate Respiratory 13 Rate [Anterior Bilateral Throughout] Blood Pressure 112/52 O2 Sat by Pulse 96 Oximetry 11/26/19 11/27/19 11/27/19 23:16 03:39 06:27 Temperature 97.7 F 99.4 F Pulse Rate 85 82 80 Pulse Rate [ Anterior Bilateral Throughout] Respiratory 18 19 Rate Respiratory Rate [Anterior Bilateral Throughout] Blood Pressure 104/49 103/51 103/51 O2 Sat by Pulse 96 96 Oximetry 11/27/19 08:32 Temperature 97.1 F L Pulse Rate 91 H Pulse Rate [ Anterior Bilateral Throughout] Respiratory 18 Rate Respiratory Rate [Anterior Bilateral Throughout] Blood Pressure 110/53 O2 Sat by Pulse 95 Oximetry - General physical appearance no distress, no pain, obese, other (looks better) - Eyes normal occular movement - Respiratory normal expansion, normal respiratory effort - Abdomen soft, other (ostomy working well. wound clean. minimal output in canister) - Psychiatric oriented to time, oriented to person, oriented to place, speech is normal, memory intact - Labs 11/25/19 07:23 11/25/19 07:23
--- NOTE | 2019-11-27 11:36 | Progress Note ---
Assessment and Plan 54 y/o male with anastomic leak 11/27/19: Pulm status stable. Will see as needed. Agree, stable for transfer to acute rehab 11/12/19: Spoke with surgery this am. Currently pleased with progress. Reviewed IR note, and they plan to remove CT today. Continue IS. Will speak with CM about looking into rehabs directly from IMCU as oppose to transferring to the floor first. 11/06: Chest tube intact. No air leak. Will ask IR if catheter can be pulled out normally (i.e. not some form of tunneled catheter). If so will have them take it out later this week. If [facility] beds available, good candidate for there, likely not quite ready for floor yet. 11/04: Stable self extubation. Continue chest tube to suction. Will likely start waterseal tomorrow. Goad maybe to get CT out Tuesday. All other drains p er surgery. Encouraged use of IS regularly at the bedside and suctioning as needed per . 11/03: Looks clinically better. Na was better on repeat labs. Spoke with and surgery to update them both. Most likely will attempt extubation in the am. Will hold feeds for about an hour in the morning prior to extubation then restart. 11/02: Repeat labs this am. Hard time believing that 2 liters of normal saline made his sodium increase that much. Also, once i discuss with surgery, may consider giving more blood. Will also hold tube feeds briefly as well. In case any procedures. Lovenox held last night. Continue vent support 11/01: Spoke with Dr. Krause this am and understand his concerns. Have started the transfer process. Most ICU's throughout the city are on diversion or full. [facility] has received his Facesheet and we are awaiting to hear back from them. CXR is clear. Minimal vent settings. Will continue supportive care for now. Follow up any new ID recs given increasing white and fever. 10/31: Will check CXR tomorrow. Continue chest tube to suction. Will likely stay in until extubated. Continue drains. Explained to staff to be extremely careful with these drains so that they do not come out. 10/30: Acute on chronic respiratory failure requiring reintubation. Appreciate Anesthesia assistance as he was a difficult intubation when we had to change his tube out about 1 week ago. Will continue on 100% until after Scans and then start to wean back down. CXR yesterday looked like pulmonary edema but improved today with positive pressure. Continue supportive care and await results of scans. 10/29: Discussed today on rounds. Patient had some issues over the weekend with the ICE chips and liquids. Will obtain speech consult/eval prior to restarting clears today. Spoke with nutrition and they will adjust tube feeds with new goal. Once at goal will start to taper off TPN. ordered Incentive madhu to bedside. Will also restart home dose of elaine today. pain control and drainage monitoring. Will continue ICU care. 10/26: Patient stable overall. Not ready for floor. Would be ok with step down if beds are needed. If spikes temp again will order blood cultures x2, urine culture, UA and repeat CXR. Gave an additional 40 of lasix this am. Will give more potassium replacement. Continue trickle feeds for now. Will continue PO meds and restart home dose of citalopram. Wean FiO2 and flow for sats >88%. Mildly hypertensive but this was secondary to agitation. Normalizing now. 10/25: Will extubate today. Will use HFNC if distress or hypoxemia is noted. Not a good candidate for bipap given his recent abdominal issues. Spoke with who is now at bedside and surgery. Will continue to attempt to achieve net negative state daily. Hold on further albumin administration. Hypernatremia is iatrogenic from lasix administration Worse case scenario, will re-intubate with anesthesia. 10/24: Responding well to lasix and protein therapy. Will give 2 more doses of lasix today. Consider one for tonight as well. Last albumin today at 1800. CXR is stable, still with layering bilateral pleural effusions. Will reassess again tomorrow. Reviewed all other implementation consultant notes. Spoke with sisters at bedside, updated and spoke with surgery. 10/23: Long discussion with surgery and via phone. Anasarca is likely from decreased oncotic pressure and immobility of several days now that abdomen is finally closed. Now fluid is essentially leaking into the interstitium now that the abdomen is shut and there is increased intra-abdominal pressure. Total Protein is 4.5 and albumin is 1.2. This is to be expected given current illness. Will attempt to increase oncotic pressure with 2 units of PRBC's and albumin infusions for the next 24 hours starting at midnight tonight. Will give lasix inbetween transfusions and then again tonight. CXR is consistent with pulmonary edema volume overload. Will continue vent for now and after significant volume removal then will attempt extubation. Discussed with and she understands. Will continue to monitor. Agree with trickle feeds and cards has switched amio over to PO to be given through the G-tube. If tolerates, hopeful to be rid of TPN soon as this is necessary but excessive volume as well. 10/22: Added diprovan as more sedation was needed. Hopefully once closed and no leaks, patient can be extubated. Cards very concerned about length of time for IV amio. Will discuss with surgery the time frame that gut can be used. 10/21: Will hold on weaning until abdomen is closed, especially knowing mental status is good. Will focus on pain control. Replace electrolytes. Appreciate Surgery recs and detail. Follow up any new recs from cards. Or tomorrow for closure Subjective Date of service: 11/27/19 Principal diagnosis: acute renal failure Interval history: No acute events. Pulm status remains stable. Objective Vital Signs - 12hr 11/27/19 11/27/19 11/27/19 03:39 06:27 08:32 Temperature 99.4 F 97.1 F L Pulse Rate 82 80 91 H Respiratory 19 18 Rate Blood Pressure 103/51 103/51 110/53 O2 Sat by Pulse 96 95 Oximetry Constitutional: no acute distress, alert, other (obese) Eyes: non-icteric ENT: oropharynx moist Neck: supple Effort: normal Ascultation: Bilateral: diminished breath sounds (bases) Cardiovascular: regular rate and rhythm (no mrg) Gastrointestinal: tender, other (obese, distended, ostomy in place; wound vac in place) Integumentary: normal Extremities: no cyanosis, pink and warm, edema (1+ bilateral LE edema) Neurologic: normal mental status, non-focal exam, pupils equal and round Psychiatric: mood appropriate, affect normal CBC and BMP: 11/25/19 07:23 11/25/19 07:23 ABG, PT/INR, D-dimer: ABG POC ABG pH 7.422 (7.35-7.45) 11/03/19 04:28 ABG pH 7.390 pH Units (7.350-7.450) 10/23/19 04:47 POC ABG pCO2 45.4 (35-45) H 11/03/19 04:28 ABG pCO2 48.4 mm Hg 10/23/19 04:47 POC ABG pO2 83 (80-105) 11/03/19 04:28 ABG pO2 68.9 mm Hg (80.0-90.0) L 10/23/19 04:47 POC ABG HCO3 29.6 (22-26 mml/L) 11/03/19 04:28 POC ABG Total CO2 31 (23-27mmol/L) 11/03/19 04:28 POC ABG O2 Sat 96 11/03/19 04:28 ABG O2 Saturation 96.6 % (95.0-99.0) 10/23/19 04:47 Abnormal lab findings: Abnormal Labs 10/06/19 10/06/19 10/07/19 05:36 05:36 05:54 WBC 21.8 H 21.5 H RBC 3.55 L Hgb 10.9 L Hct 32.7 L MCV MCH MCHC RDW Plt Count Lymph % (Auto) [place] % (Auto) Lymph # [place] # Seg Neutrophils % Seg Neuts % (Manual) 91.0 H Lymphocytes % (Manual) 2.0 L Seg Neutrophils # Seg Neutrophils # Man 19.8 H Lymphocytes # (Manual) 0.4 L Monocytes # (Manual) 1.1 H POC ABG pH ABG pH POC ABG pCO2 POC ABG pO2 ABG pO2 ABG HCO3 ABG Base Excess ABG Hemoglobin Oxyhemoglobin Sodium 135 L Potassium Chloride 95.9 L Carbon Dioxide BUN Creatinine 0.7 L Glucose POC Glucose Calcium Phosphorus Magnesium Direct Bilirubin AST Alkaline Phosphatase C-Reactive Protein Serum Total Protein Total Protein 5.7 L Albumin 2.5 L Prealbumin Vyrff-0-Zwamefkxa Aqinp-0-Lbxvagbzp Gamma Globulins PEP Interpretation Triglycerides Urine pH Urine Creatinine Urine Total Protein Vancomycin Trough Digoxin Crossmatch 10/07/19 10/09/19 10/09/19 05:54 10:52 10:52 WBC 16.6 H RBC Hgb Hct MCV MCH MCHC RDW Plt Count 498 H Lymph % (Auto) [place] % (Auto) Lymph # [place] # Seg Neutrophils % Seg Neuts % (Manual) 93.0 H Lymphocytes % (Manual) 5.0 L Seg Neutrophils # Seg Neutrophils # Man 15.4 H Lymphocytes # (Manual) 0.8 L Monocytes # (Manual) POC ABG pH ABG pH POC ABG pCO2 POC ABG pO2 ABG pO2 ABG HCO3 ABG Base Excess ABG Hemoglobin Oxyhemoglobin Sodium Potassium Chloride 97.9 L Carbon Dioxide 20 L D BUN 23 H Creatinine 1.7 H D Glucose 109 H POC Glucose Calcium 8.1 L Phosphorus Magnesium Direct Bilirubin AST Alkaline Phosphatase C-Reactive Protein Serum Total Protein Total Protein Albumin Prealbumin Jbqcy-2-Nqjedkdie Kplqh-1-Gsmoiqnns Gamma Globulins PEP Interpretation Triglycerides Urine pH Urine Creatinine Urine Total Protein Vancomycin Trough Digoxin Crossmatch 10/09/19 10/10/19 10/10/19 17:23 05:30 05:30 WBC 14.6 H RBC Hgb 11.1 L Hct 33.5 L MCV MCH MCHC RDW Plt Count 527 H Lymph % (Auto) [place] % (Auto) Lymph # [place] # Seg Neutrophils % Seg Neuts % (Manual) Lymphocytes % (Manual) Seg Neutrophils # Seg Neutrophils # Man Lymphocytes # (Manual) Monocytes # (Manual) POC ABG pH ABG pH POC ABG pCO2 POC ABG pO2 ABG pO2 ABG HCO3 ABG Base Excess ABG Hemoglobin Oxyhemoglobin Sodium 130 L D Potassium 5.1 H Chloride 90.0 L 91.0 L Carbon Dioxide 20 L 20 L BUN 27 H 35 H Creatinine 1.9 H 2.0 H Glucose 104 H POC Glucose Calcium Phosphorus Magnesium Direct Bilirubin AST Alkaline Phosphatase C-Reactive Protein Serum Total Protein Total Protein Albumin Prealbumin Ssmbq-8-Fkzqevpeb Fnjej-4-Ezdccwlzj Gamma Globulins PEP Interpretation Triglycerides Urine pH Urine Creatinine Urine Total Protein Vancomycin Trough Digoxin Crossmatch 10/10/19 10/10/19 10/11/19 08:33 08:44 05:41 WBC 13.2 H RBC Hgb 11.3 L Hct 33.8 L MCV MCH MCHC RDW 15.3 H Plt Count 543 H Lymph % (Auto) [place] % (Auto) Lymph # [place] # Seg Neutrophils % Seg Neuts % (Manual) Lymphocytes % (Manual) Seg Neutrophils # Seg Neutrophils # Man Lymphocytes # (Manual) Monocytes # (Manual) POC ABG pH ABG pH POC ABG pCO2 POC ABG pO2 ABG pO2 ABG HCO3 ABG Base Excess ABG Hemoglobin Oxyhemoglobin Sodium Potassium Chloride Carbon Dioxide BUN Creatinine Glucose 113 H POC Glucose 117 H Calcium Phosphorus Magnesium Direct Bilirubin AST Alkaline Phosphatase C-Reactive Protein Serum Total Protein Total Protein Albumin Prealbumin Qticm-5-Fzmtnxaik Emvsc-8-Fnmtvprrn Gamma Globulins PEP Interpretation Triglycerides Urine pH Urine Creatinine Urine Total Protein Vancomycin Trough Digoxin Crossmatch 10/11/19 10/11/19 10/11/19 05:41 06:23 06:23 WBC RBC Hgb Hct MCV MCH MCHC RDW Plt Count Lymph % (Auto) [place] % (Auto) Lymph # [place] # Seg Neutrophils % Seg Neuts % (Manual) Lymphocytes % (Manual) Seg Neutrophils # Seg Neutrophils # Man Lymphocytes # (Manual) Monocytes # (Manual) POC ABG pH ABG pH POC ABG pCO2 POC ABG pO2 ABG pO2 ABG HCO3 ABG Base Excess ABG Hemoglobin Oxyhemoglobin Sodium 134 L Potassium Chloride 96.3 L Carbon Dioxide BUN 37 H Creatinine Glucose 58 L POC Glucose Calcium Phosphorus 4.90 H Magnesium Direct Bilirubin AST Alkaline Phosphatase C-Reactive Protein Serum Total Protein Total Protein Albumin Prealbumin Tvqom-6-Munitdljb Gnddm-6-Yudmgwjpm Gamma Globulins PEP Interpretation Triglycerides Urine pH Urine Creatinine 118.2 H 116.8 H Urine Total Protein 105 H 104 H Vancomycin Trough Digoxin Crossmatch 10/11/19 10/12/19 10/12/19 09:00 06:09 06:09 WBC 13.8 H RBC 3.39 L Hgb 10.2 L Hct 30.9 L MCV MCH MCHC RDW 15.5 H Plt Count 459 H Lymph % (Auto) [place] % (Auto) Lymph # [place] # Seg Neutrophils % Seg Neuts % (Manual) Lymphocytes % (Manual) Seg Neutrophils # Seg Neutrophils # Man Lymphocytes # (Manual) Monocytes # (Manual) POC ABG pH ABG pH POC ABG pCO2 POC ABG pO2 ABG pO2 ABG HCO3 ABG Base Excess ABG Hemoglobin Oxyhemoglobin Sodium 131 L Potassium Chloride 96.2 L Carbon Dioxide 21 L BUN 43 H Creatinine Glucose 72 L POC Glucose Calcium Phosphorus Magnesium Direct Bilirubin AST Alkaline Phosphatase C-Reactive Protein Serum Total Protein 5.2 L Total Protein Albumin 1.9 L Prealbumin Gdrvo-5-Iqvxywdwu 0.9 H Owrzq-2-Utbsdrxow 1.0 H Gamma Globulins 0.7 L PEP Interpretation see below H Triglycerides Urine pH Urine Creatinine Urine Total Protein Vancomycin Trough Digoxin Crossmatch 10/12/19 10/12/19 10/12/19 08:20 09:30 09:30 WBC RBC Hgb Hct MCV MCH MCHC RDW Plt Count Lymph % (Auto) [place] % (Auto) Lymph # [place] # Seg Neutrophils % Seg Neuts % (Manual) Lymphocytes % (Manual) Seg Neutrophils # Seg Neutrophils # Man Lymphocytes # (Manual) Monocytes # (Manual) POC ABG pH ABG pH POC ABG pCO2 POC ABG pO2 63 L ABG pO2 ABG HCO3 ABG Base Excess ABG Hemoglobin Oxyhemoglobin Sodium Potassium Chloride Carbon Dioxide BUN Creatinine Glucose POC Glucose Calcium Phosphorus Magnesium 2.50 H Direct Bilirubin 0.3 H AST Alkaline Phosphatase C-Reactive Protein Serum Total Protein Total Protein 5.1 L Albumin 2.2 L Prealbumin Pqnbw-9-Dmuguzata Zjlbo-6-Bsuihasky Gamma Globulins PEP Interpretation Triglycerides Urine pH Urine Creatinine Urine Total Protein Vancomycin Trough Digoxin Crossmatch 10/13/19 10/13/19 10/13/19 04:20 04:20 13:20 WBC 15.7 H RBC 3.64 L Hgb 10.9 L Hct 33.1 L MCV MCH MCHC RDW 15.8 H Plt Count 488 H Lymph % (Auto) [place] % (Auto) Lymph # [place] # Seg Neutrophils % Seg Neuts % (Manual) Lymphocytes % (Manual) Seg Neutrophils # Seg Neutrophils # Man Lymphocytes # (Manual) Monocytes # (Manual) POC ABG pH ABG pH POC ABG pCO2 POC ABG pO2 ABG pO2 ABG HCO3 ABG Base Excess ABG Hemoglobin Oxyhemoglobin Sodium Potassium Chloride Carbon Dioxide BUN 28 H Creatinine Glucose POC Glucose Calcium Phosphorus Magnesium Direct Bilirubin AST Alkaline Phosphatase C-Reactive Protein Serum Total Protein Total Protein Albumin Prealbumin Rttjp-8-Yrwzwpmac Vmswa-0-Owlwlcofq Gamma Globulins PEP Interpretation Triglycerides Urine pH Urine Creatinine Urine Total Protein Vancomycin Trough Digoxin Crossmatch See Detail 10/13/19 10/13/19 10/14/19 18:24 20:05 04:47 WBC 24.2 H RBC Hgb 10.9 L Hct 34.2 L MCV MCH MCHC RDW 17.0 H Plt Count 442 H Lymph % (Auto) [place] % (Auto) Lymph # [place] # Seg Neutrophils % Seg Neuts % (Manual) Lymphocytes % (Manual) Seg Neutrophils # Seg Neutrophils # Man Lymphocytes # (Manual) Monocytes # (Manual) POC ABG pH ABG pH 7.180 L* 7.278 L POC ABG pCO2 POC ABG pO2 ABG pO2 130.7 H ABG HCO3 ABG Base Excess -6.5 L -6.5 L ABG Hemoglobin 12.2 L 12.3 L Oxyhemoglobin 92.9 L Sodium Potassium Chloride Carbon Dioxide BUN Creatinine Glucose POC Glucose Calcium Phosphorus Magnesium Direct Bilirubin AST Alkaline Phosphatase C-Reactive Protein Serum Total Protein Total Protein Albumin Prealbumin Jnjwb-6-Mrxvblnlq Lwahy-9-Wooafwprw Gamma Globulins PEP Interpretation Triglycerides Urine pH Urine Creatinine Urine Total Protein Vancomycin Trough Digoxin Crossmatch 10/14/19 10/14/19 10/14/19 04:47 05:40 10:14 WBC RBC Hgb Hct MCV MCH MCHC RDW Plt Count Lymph % (Auto) [place] % (Auto) Lymph # [place] # Seg Neutrophils % Seg Neuts % (Manual) Lymphocytes % (Manual) Seg Neutrophils # Seg Neutrophils # Man Lymphocytes # (Manual) Monocytes # (Manual) POC ABG pH ABG pH POC ABG pCO2 POC ABG pO2 ABG pO2 76.3 L ABG HCO3 19.1 L ABG Base Excess -5.8 L ABG Hemoglobin 10.9 L Oxyhemoglobin 93.4 L Sodium Potassium 5.1 H D Chloride 109.2 H Carbon Dioxide 17 L BUN 38 H Creatinine 1.8 H D Glucose 104 H POC Glucose Calcium 7.4 L Phosphorus 5.60 H Magnesium Direct Bilirubin AST Alkaline Phosphatase C-Reactive Protein Serum Total Protein Total Protein Albumin Prealbumin Hegkt-6-Lgsjicmnb Pxhoa-5-Bhxqjlsgg Gamma Globulins PEP Interpretation Triglycerides Urine pH Urine Creatinine Urine Total Protein Vancomycin Trough Digoxin Crossmatch 10/14/19 10/15/19 10/15/19 23:46 04:32 04:32 WBC 15.5 H RBC 2.89 L Hgb 8.8 L Hct 27.3 L D MCV MCH MCHC RDW 16.6 H Plt Count Lymph % (Auto) [place] % (Auto) Lymph # [place] # Seg Neutrophils % Seg Neuts % (Manual) Lymphocytes % (Manual) Seg Neutrophils # Seg Neutrophils # Man Lymphocytes # (Manual) Monocytes # (Manual) POC ABG pH ABG pH POC ABG pCO2 POC ABG pO2 ABG pO2 ABG HCO3 ABG Base Excess ABG Hemoglobin Oxyhemoglobin Sodium 147 H Potassium Chloride 114.0 H Carbon Dioxide 19 L BUN 42 H Creatinine Glucose 112 H POC Glucose 113 H Calcium 7.3 L Phosphorus Magnesium Direct Bilirubin AST 72 H Alkaline Phosphatase C-Reactive Protein 30.60 H Serum Total Protein Total Protein 4.0 L D Albumin 1.7 L Prealbumin 0.030 L Awxmo-5-Rdrnnnsmk Vavkn-7-Eprvkvvye Gamma Globulins PEP Interpretation Triglycerides Urine pH Urine Creatinine Urine Total Protein Vancomycin Trough Digoxin Crossmatch 10/15/19 10/15/19 10/15/19 05:30 12:08 17:23 WBC RBC Hgb Hct MCV MCH MCHC RDW Plt Count Lymph % (Auto) [place] % (Auto) Lymph # [place] # Seg Neutrophils % Seg Neuts % (Manual) Lymphocytes % (Manual) Seg Neutrophils # Seg Neutrophils # Man Lymphocytes # (Manual) Monocytes # (Manual) POC ABG pH ABG pH 7.296 L POC ABG pCO2 POC ABG pO2 ABG pO2 114.7 H ABG HCO3 ABG Base Excess -3.7 L ABG Hemoglobin 8.9 L Oxyhemoglobin Sodium Potassium Chloride Carbon Dioxide BUN Creatinine Glucose POC Glucose 106 H 106 H Calcium Phosphorus Magnesium Direct Bilirubin AST Alkaline Phosphatase C-Reactive Protein Serum Total Protein Total Protein Albumin Prealbumin Vizvh-5-Aovxaxnfq Mclji-9-Rgqemhekj Gamma Globulins PEP Interpretation Triglycerides Urine pH Urine Creatinine Urine Total Protein Vancomycin Trough Digoxin Crossmatch 10/16/19 10/16/19 10/16/19 00:07 04:44 05:24 WBC RBC Hgb Hct MCV MCH MCHC RDW Plt Count Lymph % (Auto) [place] % (Auto) Lymph # [place] # Seg Neutrophils % Seg Neuts % (Manual) Lymphocytes % (Manual) Seg Neutrophils # Seg Neutrophils # Man Lymphocytes # (Manual) Monocytes # (Manual) POC ABG pH ABG pH POC ABG pCO2 POC ABG pO2 ABG pO2 ABG HCO3 ABG Base Excess ABG Hemoglobin Oxyhemoglobin Sodium 150 H Potassium Chloride 115.8 H Carbon Dioxide BUN 35 H Creatinine Glucose 129 H POC Glucose 119 H 129 H Calcium 7.3 L Phosphorus 1.80 L D Magnesium Direct Bilirubin AST Alkaline Phosphatase C-Reactive Protein Serum Total Protein Total Protein Albumin Prealbumin Niqur-7-Vcljuagzy Nrbti-9-Emtftkakd Gamma Globulins PEP Interpretation Triglycerides Urine pH Urine Creatinine Urine Total Protein Vancomycin Trough Digoxin Crossmatch 10/16/19 10/16/19 10/16/19 06:53 09:20 11:58 WBC 14.6 H RBC 2.70 L Hgb 8.1 L Hct 25.2 L MCV MCH MCHC RDW 16.7 H Plt Count Lymph % (Auto) [place] % (Auto) Lymph # [place] # Seg Neutrophils % Seg Neuts % (Manual) 79.0 H Lymphocytes % (Manual) 4.0 L Seg Neutrophils # Seg Neutrophils # Man 11.5 H Lymphocytes # (Manual) 0.6 L Monocytes # (Manual) POC ABG pH ABG pH POC ABG pCO2 47.0 H POC ABG pO2 ABG pO2 ABG HCO3 ABG Base Excess ABG Hemoglobin Oxyhemoglobin Sodium Potassium Chloride Carbon Dioxide BUN Creatinine Glucose POC Glucose Calcium Phosphorus Magnesium Direct Bilirubin AST Alkaline Phosphatase C-Reactive Protein Serum Total Protein Total Protein Albumin Prealbumin Pvnyd-9-Hacwpxfbe Fnyfb-6-Duxphuyes Gamma Globulins PEP Interpretation Triglycerides Urine pH Urine Creatinine Urine Total Protein Vancomycin Trough Digoxin Crossmatch See Detail 10/16/19 10/16/19 10/16/19 15:23 17:50 23:58 WBC RBC Hgb Hct MCV MCH MCHC RDW Plt Count Lymph % (Auto) [place] % (Auto) Lymph # [place] # Seg Neutrophils % Seg Neuts % (Manual) Lymphocytes % (Manual) Seg Neutrophils # Seg Neutrophils # Man Lymphocytes # (Manual) Monocytes # (Manual) POC ABG pH ABG pH POC ABG pCO2 POC ABG pO2 ABG pO2 ABG HCO3 ABG Base Excess ABG Hemoglobin Oxyhemoglobin Sodium Potassium Chloride Carbon Dioxide BUN Creatinine Glucose POC Glucose 221 H 201 H 179 H Calcium Phosphorus Magnesium Direct Bilirubin AST Alkaline Phosphatase C-Reactive Protein Serum Total Protein Total Protein Albumin Prealbumin Woseq-3-Hijkvcmre Pdkey-4-Czgrqvkfa Gamma Globulins PEP Interpretation Triglycerides Urine pH Urine Creatinine Urine Total Protein Vancomycin Trough Digoxin Crossmatch 10/17/19 10/17/19 10/17/19 04:08 04:08 05:41 WBC 22.3 H RBC 3.35 L Hgb 10.0 L Hct 31.2 L D MCV MCH MCHC RDW 16.1 H Plt Count Lymph % (Auto) [place] % (Auto) Lymph # [place] # Seg Neutrophils % Seg Neuts % (Manual) Lymphocytes % (Manual) Seg Neutrophils # Seg Neutrophils # Man Lymphocytes # (Manual) Monocytes # (Manual) POC ABG pH 7.310 L ABG pH POC ABG pCO2 52.8 H POC ABG pO2 70 L ABG pO2 ABG HCO3 ABG Base Excess ABG Hemoglobin Oxyhemoglobin Sodium 147 H Potassium Chloride 114.9 H Carbon Dioxide BUN 36 H Creatinine Glucose 165 H POC Glucose Calcium 6.9 L Phosphorus 2.20 L D Magnesium Direct Bilirubin AST Alkaline Phosphatase C-Reactive Protein Serum Total Protein Total Protein Albumin Prealbumin Lrtgg-2-Lcscznjip Djwtx-3-Wvrydfcpj Gamma Globulins PEP Interpretation Triglycerides Urine pH Urine Creatinine Urine Total Protein Vancomycin Trough Digoxin Crossmatch 10/17/19 10/17/19 10/17/19 05:42 11:33 18:17 WBC RBC Hgb Hct MCV MCH MCHC RDW Plt Count Lymph % (Auto) [place] % (Auto) Lymph # [place] # Seg Neutrophils % Seg Neuts % (Manual) Lymphocytes % (Manual) Seg Neutrophils # Seg Neutrophils # Man Lymphocytes # (Manual) Monocytes # (Manual) POC ABG pH ABG pH POC ABG pCO2 POC ABG pO2 ABG pO2 ABG HCO3 ABG Base Excess ABG Hemoglobin Oxyhemoglobin Sodium Potassium Chloride Carbon Dioxide BUN Creatinine Glucose POC Glucose 149 H 154 H 163 H Calcium Phosphorus Magnesium Direct Bilirubin AST Alkaline Phosphatase C-Reactive Protein Serum Total Protein Total Protein Albumin Prealbumin Wlolg-5-Hcgnymxgi Jrksu-1-Kwgvotfjq Gamma Globulins PEP Interpretation Triglycerides Urine pH Urine Creatinine Urine Total Protein Vancomycin Trough Digoxin Crossmatch 10/17/19 10/18/19 10/18/19 23:34 03:29 04:50 WBC RBC Hgb Hct MCV MCH MCHC RDW Plt Count Lymph % (Auto) [place] % (Auto) Lymph # [place] # Seg Neutrophils % Seg Neuts % (Manual) Lymphocytes % (Manual) Seg Neutrophils # Seg Neutrophils # Man Lymphocytes # (Manual) Monocytes # (Manual) POC ABG pH ABG pH POC ABG pCO2 POC ABG pO2 ABG pO2 78.8 L ABG HCO3 ABG Base Excess ABG Hemoglobin 8.8 L Oxyhemoglobin Sodium Potassium Chloride 111.8 H Carbon Dioxide BUN 27 H Creatinine 0.6 L Glucose 140 H POC Glucose 135 H Calcium 7.1 L Phosphorus 1.80 L Magnesium Direct Bilirubin AST Alkaline Phosphatase C-Reactive Protein Serum Total Protein Total Protein Albumin Prealbumin Vtoqc-8-Eushzhzgh Ootrh-6-Wimbroyfb Gamma Globulins PEP Interpretation Triglycerides Urine pH Urine Creatinine Urine Total Protein Vancomycin Trough Digoxin Crossmatch 10/18/19 10/18/19 10/18/19 05:45 11:19 18:26 WBC RBC Hgb Hct MCV MCH MCHC RDW Plt Count Lymph % (Auto) [place] % (Auto) Lymph # [place] # Seg Neutrophils % Seg Neuts % (Manual) Lymphocytes % (Manual) Seg Neutrophils # Seg Neutrophils # Man Lymphocytes # (Manual) Monocytes # (Manual) POC ABG pH ABG pH POC ABG pCO2 POC ABG pO2 ABG pO2 ABG HCO3 ABG Base Excess ABG Hemoglobin Oxyhemoglobin Sodium Potassium Chloride Carbon Dioxide BUN Creatinine Glucose POC Glucose 145 H 152 H 125 H Calcium Phosphorus Magnesium Direct Bilirubin AST Alkaline Phosphatase C-Reactive Protein Serum Total Protein Total Protein Albumin Prealbumin Rcdqy-0-Uuqbxgjib Jmsyy-2-Upwjpeusw Gamma Globulins PEP Interpretation Triglycerides Urine pH Urine Creatinine Urine Total Protein Vancomycin Trough Digoxin Crossmatch 10/18/19 10/19/19 10/19/19 23:27 04:21 04:21 WBC RBC Hgb Hct MCV MCH MCHC RDW Plt Count Lymph % (Auto) [place] % (Auto) Lymph # [place] # Seg Neutrophils % Seg Neuts % (Manual) Lymphocytes % (Manual) Seg Neutrophils # Seg Neutrophils # Man Lymphocytes # (Manual) Monocytes # (Manual) POC ABG pH ABG pH POC ABG pCO2 POC ABG pO2 ABG pO2 ABG HCO3 ABG Base Excess ABG Hemoglobin Oxyhemoglobin Sodium Potassium Chloride 108.4 H Carbon Dioxide BUN 22 H Creatinine 0.5 L Glucose 123 H POC Glucose 127 H Calcium 7.4 L Phosphorus 1.80 L Magnesium Direct Bilirubin AST Alkaline Phosphatase C-Reactive Protein Serum Total Protein Total Protein Albumin Prealbumin Kordr-3-Tceoslrmw Zeucm-6-Ltehayiqq Gamma Globulins PEP Interpretation Triglycerides Urine pH Urine Creatinine Urine Total Protein Vancomycin Trough Digoxin 0.7 L Crossmatch 10/19/19 10/19/19 10/19/19 05:00 05:35 11:26 WBC RBC Hgb Hct MCV MCH MCHC RDW Plt Count Lymph % (Auto) [place] % (Auto) Lymph # [place] # Seg Neutrophils % Seg Neuts % (Manual) Lymphocytes % (Manual) Seg Neutrophils # Seg Neutrophils # Man Lymphocytes # (Manual) Monocytes # (Manual) POC ABG pH ABG pH 7.456 H POC ABG pCO2 POC ABG pO2 ABG pO2 78.8 L ABG HCO3 ABG Base Excess ABG Hemoglobin 5.6 L Oxyhemoglobin Sodium Potassium Chloride Carbon Dioxide BUN Creatinine Glucose POC Glucose 124 H 111 H Calcium Phosphorus Magnesium Direct Bilirubin AST Alkaline Phosphatase C-Reactive Protein Serum Total Protein Total Protein Albumin Prealbumin Ojphy-1-Rkheuhrnx Bzknx-6-Tcelamlpc Gamma Globulins PEP Interpretation Triglycerides Urine pH Urine Creatinine Urine Total Protein Vancomycin Trough Digoxin Crossmatch 10/19/19 10/20/19 10/20/19 23:23 04:50 05:17 WBC RBC Hgb Hct MCV MCH MCHC RDW Plt Count Lymph % (Auto) [place] % (Auto) Lymph # [place] # Seg Neutrophils % Seg Neuts % (Manual) Lymphocytes % (Manual) Seg Neutrophils # Seg Neutrophils # Man Lymphocytes # (Manual) Monocytes # (Manual) POC ABG pH ABG pH POC ABG pCO2 POC ABG pO2 ABG pO2 ABG HCO3 ABG Base Excess ABG Hemoglobin Oxyhemoglobin Sodium Potassium Chloride 108.1 H Carbon Dioxide BUN Creatinine 0.4 L Glucose 134 H POC Glucose 129 H 123 H Calcium 7.1 L Phosphorus Magnesium Direct Bilirubin AST Alkaline Phosphatase C-Reactive Protein Serum Total Protein Total Protein Albumin Prealbumin Zqbnx-9-Fqtpmxigr Ehpws-7-Usbcdfvvh Gamma Globulins PEP Interpretation Triglycerides Urine pH Urine Creatinine Urine Total Protein Vancomycin Trough Digoxin Crossmatch 10/20/19 10/20/19 10/21/19 11:40 19:06 05:08 WBC RBC Hgb Hct MCV MCH MCHC RDW Plt Count Lymph % (Auto) [place] % (Auto) Lymph # [place] # Seg Neutrophils % Seg Neuts % (Manual) Lymphocytes % (Manual) Seg Neutrophils # Seg Neutrophils # Man Lymphocytes # (Manual) Monocytes # (Manual) POC ABG pH ABG pH POC ABG pCO2 POC ABG pO2 ABG pO2 ABG HCO3 ABG Base Excess ABG Hemoglobin Oxyhemoglobin Sodium Potassium Chloride Carbon Dioxide BUN Creatinine Glucose POC Glucose 139 H 117 H 131 H Calcium Phosphorus Magnesium Direct Bilirubin AST Alkaline Phosphatase C-Reactive Protein Serum Total Protein Total Protein Albumin Prealbumin Dvore-7-Zjnyrejro Cdufa-0-Gbzmxtpcj Gamma Globulins PEP Interpretation Triglycerides Urine pH Urine Creatinine Urine Total Protein Vancomycin Trough Digoxin Crossmatch 10/21/19 10/21/19 10/21/19 05:30 12:04 17:31 WBC RBC Hgb Hct MCV MCH MCHC RDW Plt Count Lymph % (Auto) [place] % (Auto) Lymph # [place] # Seg Neutrophils % Seg Neuts % (Manual) Lymphocytes % (Manual) Seg Neutrophils # Seg Neutrophils # Man Lymphocytes # (Manual) Monocytes # (Manual) POC ABG pH ABG pH POC ABG pCO2 POC ABG pO2 ABG pO2 ABG HCO3 ABG Base Excess ABG Hemoglobin Oxyhemoglobin Sodium Potassium Chloride 107.8 H Carbon Dioxide BUN Creatinine 0.5 L Glucose 119 H POC Glucose 119 H 110 H Calcium 7.6 L Phosphorus Magnesium Direct Bilirubin AST Alkaline Phosphatase C-Reactive Protein Serum Total Protein Total Protein Albumin Prealbumin Hadkp-2-Driqiodro Wsgcl-5-Dxmxznljo Gamma Globulins PEP Interpretation Triglycerides Urine pH Urine Creatinine Urine Total Protein Vancomycin Trough Digoxin Crossmatch 10/22/19 10/22/19 10/22/19 05:14 05:37 12:07 WBC RBC Hgb Hct MCV MCH MCHC RDW Plt Count Lymph % (Auto) [place] % (Auto) Lymph # [place] # Seg Neutrophils % Seg Neuts % (Manual) Lymphocytes % (Manual) Seg Neutrophils # Seg Neutrophils # Man Lymphocytes # (Manual) Monocytes # (Manual) POC ABG pH ABG pH POC ABG pCO2 POC ABG pO2 ABG pO2 ABG HCO3 ABG Base Excess ABG Hemoglobin Oxyhemoglobin Sodium Potassium Chloride Carbon Dioxide BUN Creatinine 0.5 L Glucose 116 H POC Glucose 110 H 126 H Calcium 7.7 L Phosphorus Magnesium Direct Bilirubin AST Alkaline Phosphatase C-Reactive Protein Serum Total Protein Total Protein Albumin Prealbumin Chkri-9-Baoppdewj Keszq-1-Qrvjzagvr Gamma Globulins PEP Interpretation Triglycerides Urine pH Urine Creatinine Urine Total Protein Vancomycin Trough Digoxin Crossmatch 10/22/19 10/22/19 10/23/19 18:36 23:19 04:39 WBC RBC Hgb Hct MCV MCH MCHC RDW Plt Count Lymph % (Auto) [place] % (Auto) Lymph # [place] # Seg Neutrophils % Seg Neuts % (Manual) Lymphocytes % (Manual) Seg Neutrophils # Seg Neutrophils # Man Lymphocytes # (Manual) Monocytes # (Manual) POC ABG pH ABG pH POC ABG pCO2 POC ABG pO2 ABG pO2 ABG HCO3 ABG Base Excess ABG Hemoglobin Oxyhemoglobin Sodium Potassium Chloride Carbon Dioxide BUN Creatinine Glucose POC Glucose 120 H 127 H 112 H Calcium Phosphorus Magnesium Direct Bilirubin AST Alkaline Phosphatase C-Reactive Protein Serum Total Protein Total Protein Albumin Prealbumin Qgjim-2-Wgcycmofq Heimh-9-Geqeuxyzp Gamma Globulins PEP Interpretation Triglycerides Urine pH Urine Creatinine Urine Total Protein Vancomycin Trough Digoxin Crossmatch 10/23/19 10/23/19 10/23/19 04:47 05:15 10:44 WBC 18.3 H RBC 2.33 L Hgb 7.0 L Hct 21.5 L MCV MCH MCHC RDW 16.2 H Plt Count Lymph % (Auto) 4.9 L [place] % (Auto) 8.1 H Lymph # 0.9 L [place] # 1.5 H Seg Neutrophils % 86.7 H Seg Neuts % (Manual) Lymphocytes % (Manual) Seg Neutrophils # 15.9 H Seg Neutrophils # Man Lymphocytes # (Manual) Monocytes # (Manual) POC ABG pH ABG pH POC ABG pCO2 POC ABG pO2 ABG pO2 68.9 L ABG HCO3 28.7 H ABG Base Excess 3.4 H ABG Hemoglobin 6.6 L Oxyhemoglobin 94.1 L Sodium Potassium Chloride Carbon Dioxide BUN Creatinine 0.5 L Glucose 165 H POC Glucose Calcium 7.4 L Phosphorus Magnesium Direct Bilirubin AST Alkaline Phosphatase C-Reactive Protein Serum Total Protein Total Protein Albumin Prealbumin Odvef-7-Jfbtbtsgy Moggo-4-Ajgezkpzl Gamma Globulins PEP Interpretation Triglycerides Urine pH Urine Creatinine Urine Total Protein Vancomycin Trough Digoxin Crossmatch 10/23/19 10/23/19 10/23/19 10:44 11:46 11:50 WBC RBC Hgb Hct MCV MCH MCHC RDW Plt Count Lymph % (Auto) [place] % (Auto) Lymph # [place] # Seg Neutrophils % Seg Neuts % (Manual) Lymphocytes % (Manual) Seg Neutrophils # Seg Neutrophils # Man Lymphocytes # (Manual) Monocytes # (Manual) POC ABG pH ABG pH POC ABG pCO2 POC ABG pO2 ABG pO2 ABG HCO3 ABG Base Excess ABG Hemoglobin Oxyhemoglobin Sodium Potassium Chloride Carbon Dioxide BUN Creatinine Glucose POC Glucose 138 H Calcium Phosphorus Magnesium Direct Bilirubin 0.7 H AST Alkaline Phosphatase C-Reactive Protein Serum Total Protein Total Protein 4.5 L Albumin 1.2 L Prealbumin Jfdlf-6-Qczmquvui Spwsz-6-Sivjriwtq Gamma Globulins PEP Interpretation Triglycerides Urine pH Urine Creatinine Urine Total Protein Vancomycin Trough Digoxin Crossmatch See Detail 10/23/19 10/24/19 10/24/19 17:53 00:07 05:05 WBC RBC Hgb Hct MCV MCH MCHC RDW Plt Count Lymph % (Auto) [place] % (Auto) Lymph # [place] # Seg Neutrophils % Seg Neuts % (Manual) Lymphocytes % (Manual) Seg Neutrophils # Seg Neutrophils # Man Lymphocytes # (Manual) Monocytes # (Manual) POC ABG pH ABG pH POC ABG pCO2 POC ABG pO2 ABG pO2 ABG HCO3 ABG Base Excess ABG Hemoglobin Oxyhemoglobin Sodium Potassium 3.5 L Chloride Carbon Dioxide BUN Creatinine 0.5 L Glucose 116 H POC Glucose 137 H 110 H Calcium 8.0 L Phosphorus Magnesium Direct Bilirubin AST Alkaline Phosphatase C-Reactive Protein Serum Total Protein Total Protein Albumin Prealbumin Xwapg-3-Imlncodso Zjfir-8-Ekcugxact Gamma Globulins PEP Interpretation Triglycerides Urine pH Urine Creatinine Urine Total Protein Vancomycin Trough Digoxin Crossmatch 10/24/19 10/24/19 10/24/19 05:05 11:56 13:00 WBC 13.0 H RBC 2.73 L Hgb 8.0 L Hct 24.2 L MCV MCH MCHC RDW 17.9 H Plt Count Lymph % (Auto) 7.0 L [place] % (Auto) 9.5 H Lymph # 0.9 L [place] # 1.2 H Seg Neutrophils % 82.7 H Seg Neuts % (Manual) Lymphocytes % (Manual) Seg Neutrophils # 10.7 H Seg Neutrophils # Man Lymphocytes # (Manual) Monocytes # (Manual) POC ABG pH ABG pH POC ABG pCO2 POC ABG pO2 ABG pO2 ABG HCO3 ABG Base Excess ABG Hemoglobin Oxyhemoglobin Sodium Potassium Chloride Carbon Dioxide BUN Creatinine Glucose POC Glucose 159 H Calcium Phosphorus Magnesium Direct Bilirubin AST Alkaline Phosphatase C-Reactive Protein Serum Total Protein Total Protein Albumin Prealbumin Getbt-2-Oyaowkwef Uqdll-9-Rkspwahud Gamma Globulins PEP Interpretation Triglycerides 216 H Urine pH Urine Creatinine Urine Total Protein Vancomycin Trough Digoxin Crossmatch 10/24/19 10/24/19 10/25/19 17:42 23:45 04:19 WBC RBC Hgb Hct MCV MCH MCHC RDW Plt Count Lymph % (Auto) [place] % (Auto) Lymph # [place] # Seg Neutrophils % Seg Neuts % (Manual) Lymphocytes % (Manual) Seg Neutrophils # Seg Neutrophils # Man Lymphocytes # (Manual) Monocytes # (Manual) POC ABG pH ABG pH POC ABG pCO2 POC ABG pO2 ABG pO2 ABG HCO3 ABG Base Excess ABG Hemoglobin Oxyhemoglobin Sodium 147 H Potassium Chloride Carbon Dioxide 33 H BUN Creatinine 0.5 L Glucose 111 H POC Glucose 120 H 116 H Calcium Phosphorus Magnesium Direct Bilirubin AST Alkaline Phosphatase C-Reactive Protein Serum Total Protein Total Protein 5.7 L D Albumin 2.5 L Prealbumin Smlfg-2-Vexnbkgqr Kptll-2-Rowrbwldg Gamma Globulins PEP Interpretation Triglycerides 230 H Urine pH Urine Creatinine Urine Total Protein Vancomycin Trough Digoxin Crossmatch 10/25/19 10/25/19 10/25/19 04:19 05:31 12:20 WBC RBC 2.69 L Hgb 8.1 L Hct 23.9 L MCV MCH MCHC RDW 17.3 H Plt Count Lymph % (Auto) [place] % (Auto) Lymph # [place] # Seg Neutrophils % Seg Neuts % (Manual) Lymphocytes % (Manual) Seg Neutrophils # Seg Neutrophils # Man Lymphocytes # (Manual) Monocytes # (Manual) POC ABG pH ABG pH POC ABG pCO2 POC ABG pO2 ABG pO2 ABG HCO3 ABG Base Excess ABG Hemoglobin Oxyhemoglobin Sodium Potassium Chloride Carbon Dioxide BUN Creatinine Glucose POC Glucose 126 H 114 H Calcium Phosphorus Magnesium Direct Bilirubin AST Alkaline Phosphatase C-Reactive Protein Serum Total Protein Total Protein Albumin Prealbumin Etqcy-6-Tmvskaolx Qdgvv-3-Cfdwuasoy Gamma Globulins PEP Interpretation Triglycerides Urine pH Urine Creatinine Urine Total Protein Vancomycin Trough Digoxin Crossmatch 10/25/19 10/25/19 10/26/19 18:30 23:09 06:15 WBC RBC Hgb Hct MCV MCH MCHC RDW Plt Count Lymph % (Auto) [place] % (Auto) Lymph # [place] # Seg Neutrophils % Seg Neuts % (Manual) Lymphocytes % (Manual) Seg Neutrophils # Seg Neutrophils # Man Lymphocytes # (Manual) Monocytes # (Manual) POC ABG pH ABG pH POC ABG pCO2 POC ABG pO2 ABG pO2 ABG HCO3 ABG Base Excess ABG Hemoglobin Oxyhemoglobin Sodium Potassium 3.5 L Chloride Carbon Dioxide BUN Creatinine 0.5 L Glucose 112 H POC Glucose 121 H 107 H Calcium 8.3 L Phosphorus Magnesium Direct Bilirubin AST Alkaline Phosphatase 148 H C-Reactive Protein Serum Total Protein Total Protein 5.9 L Albumin 2.4 L Prealbumin Ivtbh-1-Hsxbxezwb Ifvqk-5-Ysdxysnit Gamma Globulins PEP Interpretation Triglycerides Urine pH Urine Creatinine Urine Total Protein Vancomycin Trough Digoxin Crossmatch 10/26/19 10/26/19 10/26/19 06:15 12:21 17:35 WBC RBC Hgb Hct MCV MCH MCHC RDW Plt Count Lymph % (Auto) [place] % (Auto) Lymph # [place] # Seg Neutrophils % Seg Neuts % (Manual) Lymphocytes % (Manual) Seg Neutrophils # Seg Neutrophils # Man Lymphocytes # (Manual) Monocytes # (Manual) POC ABG pH ABG pH POC ABG pCO2 POC ABG pO2 ABG pO2 ABG HCO3 ABG Base Excess ABG Hemoglobin Oxyhemoglobin Sodium Potassium Chloride Carbon Dioxide BUN Creatinine Glucose POC Glucose 134 H 141 H Calcium Phosphorus Magnesium Direct Bilirubin AST Alkaline Phosphatase C-Reactive Protein Serum Total Protein Total Protein Albumin Prealbumin Ayigr-0-Inbnormxt Bqrpv-9-Jubsursct Gamma Globulins PEP Interpretation Triglycerides 185 H Urine pH Urine Creatinine Urine Total Protein Vancomycin Trough Digoxin Crossmatch 10/26/19 10/27/19 10/27/19 Unknown 04:30 11:33 WBC RBC Hgb Hct MCV MCH MCHC RDW Plt Count Lymph % (Auto) [place] % (Auto) Lymph # [place] # Seg Neutrophils % Seg Neuts % (Manual) Lymphocytes % (Manual) Seg Neutrophils # Seg Neutrophils # Man Lymphocytes # (Manual) Monocytes # (Manual) POC ABG pH ABG pH POC ABG pCO2 POC ABG pO2 ABG pO2 ABG HCO3 ABG Base Excess ABG Hemoglobin Oxyhemoglobin Sodium Potassium 3.2 L Chloride Carbon Dioxide BUN 23 H Creatinine 0.6 L Glucose 130 H POC Glucose 131 H Calcium 7.9 L Phosphorus Magnesium Direct Bilirubin AST Alkaline Phosphatase C-Reactive Protein Serum Total Protein Total Protein Albumin Prealbumin Ltcik-9-Pmlmpetwo Iunbl-0-Kspgxsdro Gamma Globulins PEP Interpretation Triglycerides Urine pH 9.0 H Urine Creatinine Urine Total Protein Vancomycin Trough Digoxin Crossmatch 10/27/19 10/28/19 10/28/19 17:45 05:25 05:49 WBC RBC 2.85 L Hgb 8.3 L Hct 26.8 L MCV MCH MCHC 31 L RDW 17.4 H Plt Count Lymph % (Auto) 8.9 L [place] % (Auto) 14.3 H Lymph # 0.8 L [place] # 1.3 H Seg Neutrophils % 76.5 H Seg Neuts % (Manual) Lymphocytes % (Manual) Seg Neutrophils # Seg Neutrophils # Man Lymphocytes # (Manual) Monocytes # (Manual) POC ABG pH ABG pH POC ABG pCO2 POC ABG pO2 ABG pO2 ABG HCO3 ABG Base Excess ABG Hemoglobin Oxyhemoglobin Sodium Potassium Chloride Carbon Dioxide BUN Creatinine Glucose POC Glucose 121 H 120 H Calcium Phosphorus Magnesium Direct Bilirubin AST Alkaline Phosphatase C-Reactive Protein Serum Total Protein Total Protein Albumin Prealbumin Wbaqu-6-Bsgfyqwfh Muibo-3-Aeckkceiu Gamma Globulins PEP Interpretation Triglycerides Urine pH Urine Creatinine Urine Total Protein Vancomycin Trough Digoxin Crossmatch 10/28/19 10/28/19 10/28/19 07:19 12:07 18:21 WBC RBC Hgb Hct MCV MCH MCHC RDW Plt Count Lymph % (Auto) [place] % (Auto) Lymph # [place] # Seg Neutrophils % Seg Neuts % (Manual) Lymphocytes % (Manual) Seg Neutrophils # Seg Neutrophils # Man Lymphocytes # (Manual) Monocytes # (Manual) POC ABG pH ABG pH POC ABG pCO2 POC ABG pO2 ABG pO2 ABG HCO3 ABG Base Excess ABG Hemoglobin Oxyhemoglobin Sodium Potassium Chloride Carbon Dioxide BUN 23 H Creatinine 0.5 L Glucose 129 H POC Glucose 127 H 130 H Calcium 8.0 L Phosphorus Magnesium Direct Bilirubin AST Alkaline Phosphatase C-Reactive Protein Serum Total Protein Total Protein Albumin Prealbumin Egwsc-6-Fscxeyrge Cgsft-6-Gdmmukmrb Gamma Globulins PEP Interpretation Triglycerides Urine pH Urine Creatinine Urine Total Protein Vancomycin Trough Digoxin Crossmatch 10/28/19 10/29/19 10/29/19 23:30 05:30 05:30 WBC 11.2 H RBC 3.36 L Hgb 9.7 L Hct 29.4 L MCV MCH MCHC RDW 16.7 H Plt Count Lymph % (Auto) [place] % (Auto) 16.0 H Lymph # [place] # 1.8 H Seg Neutrophils % 70.2 H Seg Neuts % (Manual) Lymphocytes % (Manual) Seg Neutrophils # 7.9 H Seg Neutrophils # Man Lymphocytes # (Manual) Monocytes # (Manual) POC ABG pH ABG pH POC ABG pCO2 POC ABG pO2 ABG pO2 ABG HCO3 ABG Base Excess ABG Hemoglobin Oxyhemoglobin Sodium Potassium Chloride Carbon Dioxide BUN 23 H Creatinine 0.5 L Glucose POC Glucose 130 H Calcium 8.3 L Phosphorus Magnesium Direct Bilirubin AST Alkaline Phosphatase C-Reactive Protein Serum Total Protein Total Protein Albumin Prealbumin Ihxgb-1-Hicvdayuu Twxyw-8-Aejxcueja Gamma Globulins PEP Interpretation Triglycerides Urine pH Urine Creatinine Urine Total Protein Vancomycin Trough Digoxin Crossmatch 10/29/19 10/29/19 10/29/19 05:52 13:10 18:02 WBC RBC Hgb Hct MCV MCH MCHC RDW Plt Count Lymph % (Auto) [place] % (Auto) Lymph # [place] # Seg Neutrophils % Seg Neuts % (Manual) Lymphocytes % (Manual) Seg Neutrophils # Seg Neutrophils # Man Lymphocytes # (Manual) Monocytes # (Manual) POC ABG pH ABG pH POC ABG pCO2 POC ABG pO2 ABG pO2 ABG HCO3 ABG Base Excess ABG Hemoglobin Oxyhemoglobin Sodium Potassium Chloride Carbon Dioxide BUN Creatinine Glucose POC Glucose 111 H 140 H 140 H Calcium Phosphorus Magnesium Direct Bilirubin AST Alkaline Phosphatase C-Reactive Protein Serum Total Protein Total Protein Albumin Prealbumin Ylrlh-2-Dlscwdmfo Kgbpv-4-Vuksnacuz Gamma Globulins PEP Interpretation Triglycerides Urine pH Urine Creatinine Urine Total Protein Vancomycin Trough Digoxin Crossmatch 10/29/19 10/30/19 10/30/19 23:58 01:05 05:15 WBC RBC Hgb Hct MCV MCH MCHC RDW Plt Count Lymph % (Auto) [place] % (Auto) Lymph # [place] # Seg Neutrophils % Seg Neuts % (Manual) Lymphocytes % (Manual) Seg Neutrophils # Seg Neutrophils # Man Lymphocytes # (Manual) Monocytes # (Manual) POC ABG pH ABG pH POC ABG pCO2 62.0 H POC ABG pO2 168 H ABG pO2 ABG HCO3 ABG Base Excess ABG Hemoglobin Oxyhemoglobin Sodium 147 H Potassium Chloride 107.8 H Carbon Dioxide BUN 26 H Creatinine 0.5 L Glucose 139 H POC Glucose 161 H Calcium Phosphorus Magnesium 2.40 H Direct Bilirubin AST Alkaline Phosphatase C-Reactive Protein Serum Total Protein Total Protein Albumin Prealbumin Nqxor-6-Lezfkfsoj Mcurd-8-Whzbaepdk Gamma Globulins PEP Interpretation Triglycerides Urine pH Urine Creatinine Urine Total Protein Vancomycin Trough Digoxin Crossmatch 10/30/19 10/30/19 10/30/19 05:15 06:32 09:44 WBC 13.8 H RBC 3.59 L Hgb 10.1 L Hct 32.4 L MCV MCH MCHC 31 L RDW 17.4 H Plt Count Lymph % (Auto) 11.2 L [place] % (Auto) 13.6 H Lymph # [place] # 1.9 H Seg Neutrophils % 75.1 H Seg Neuts % (Manual) Lymphocytes % (Manual) Seg Neutrophils # 10.4 H Seg Neutrophils # Man Lymphocytes # (Manual) Monocytes # (Manual) POC ABG pH ABG pH POC ABG pCO2 51.7 H POC ABG pO2 111 H ABG pO2 ABG HCO3 ABG Base Excess ABG Hemoglobin Oxyhemoglobin Sodium Potassium Chloride Carbon Dioxide BUN Creatinine Glucose POC Glucose 141 H Calcium Phosphorus Magnesium Direct Bilirubin AST Alkaline Phosphatase C-Reactive Protein Serum Total Protein Total Protein Albumin Prealbumin Apocv-7-Uynkrycur Vlarp-7-Ysjxsnmel Gamma Globulins PEP Interpretation Triglycerides Urine pH Urine Creatinine Urine Total Protein Vancomycin Trough Digoxin Crossmatch 10/30/19 10/31/19 10/31/19 18:10 04:18 04:18 WBC 11.7 H RBC 3.11 L Hgb 9.0 L Hct 27.9 L MCV MCH MCHC RDW 17.1 H Plt Count Lymph % (Auto) [place] % (Auto) Lymph # [place] # Seg Neutrophils % Seg Neuts % (Manual) Lymphocytes % (Manual) Seg Neutrophils # Seg Neutrophils # Man Lymphocytes # (Manual) Monocytes # (Manual) POC ABG pH ABG pH POC ABG pCO2 POC ABG pO2 ABG pO2 ABG HCO3 ABG Base Excess ABG Hemoglobin Oxyhemoglobin Sodium 148 H Potassium Chloride 108.7 H Carbon Dioxide BUN 37 H Creatinine 0.7 L Glucose 102 H POC Glucose 131 H Calcium Phosphorus Magnesium Direct Bilirubin AST Alkaline Phosphatase C-Reactive Protein Serum Total Protein Total Protein Albumin Prealbumin Guprj-6-Vowrlyxiw Bhilm-4-Acapxcyjq Gamma Globulins PEP Interpretation Triglycerides Urine pH Urine Creatinine Urine Total Protein Vancomycin Trough Digoxin Crossmatch 10/31/19 10/31/19 10/31/19 11:32 12:55 18:10 WBC RBC Hgb Hct MCV MCH MCHC RDW Plt Count Lymph % (Auto) [place] % (Auto) Lymph # [place] # Seg Neutrophils % Seg Neuts % (Manual) Lymphocytes % (Manual) Seg Neutrophils # Seg Neutrophils # Man Lymphocytes # (Manual) Monocytes # (Manual) POC ABG pH ABG pH POC ABG pCO2 57.9 H POC ABG pO2 135 H ABG pO2 ABG HCO3 ABG Base Excess ABG Hemoglobin Oxyhemoglobin Sodium Potassium Chloride Carbon Dioxide BUN Creatinine Glucose POC Glucose 120 H Calcium Phosphorus Magnesium Direct Bilirubin AST Alkaline Phosphatase C-Reactive Protein Serum Total Protein Total Protein Albumin Prealbumin Bmoge-7-Ubfuyyfne Qrsli-2-Nodyuhgeq Gamma Globulins PEP Interpretation Triglycerides Urine pH Urine Creatinine Urine Total Protein Vancomycin Trough 41.7 H Digoxin Crossmatch 10/31/19 11/01/19 11/01/19 23:08 05:30 05:30 WBC 14.6 H RBC 3.13 L Hgb 8.9 L Hct 27.7 L MCV MCH MCHC RDW 17.0 H Plt Count Lymph % (Auto) [place] % (Auto) Lymph # [place] # Seg Neutrophils % Seg Neuts % (Manual) Lymphocytes % (Manual) Seg Neutrophils # Seg Neutrophils # Man Lymphocytes # (Manual) Monocytes # (Manual) POC ABG pH ABG pH POC ABG pCO2 POC ABG pO2 ABG pO2 ABG HCO3 ABG Base Excess ABG Hemoglobin Oxyhemoglobin Sodium 149 H Potassium Chloride 109.0 H Carbon Dioxide BUN 26 H Creatinine 0.7 L Glucose 129 H POC Glucose 109 H Calcium Phosphorus Magnesium Direct Bilirubin AST Alkaline Phosphatase C-Reactive Protein Serum Total Protein Total Protein Albumin Prealbumin Pcgre-1-Xepxsfitx Nfkep-9-Onsidmsgn Gamma Globulins PEP Interpretation Triglycerides Urine pH Urine Creatinine Urine Total Protein Vancomycin Trough Digoxin Crossmatch 11/01/19 11/01/19 11/01/19 06:09 06:10 11:52 WBC RBC Hgb Hct MCV MCH MCHC RDW Plt Count Lymph % (Auto) [place] % (Auto) Lymph # [place] # Seg Neutrophils % Seg Neuts % (Manual) Lymphocytes % (Manual) Seg Neutrophils # Seg Neutrophils # Man Lymphocytes # (Manual) Monocytes # (Manual) POC ABG pH ABG pH POC ABG pCO2 51.3 H POC ABG pO2 71 L ABG pO2 ABG HCO3 ABG Base Excess ABG Hemoglobin Oxyhemoglobin Sodium Potassium Chloride Carbon Dioxide BUN Creatinine Glucose POC Glucose 113 H 106 H Calcium Phosphorus Magnesium Direct Bilirubin AST Alkaline Phosphatase C-Reactive Protein Serum Total Protein Total Protein Albumin Prealbumin Haujj-0-Rpvxfhjac Eflcx-0-Fyocvhgxn Gamma Globulins PEP Interpretation Triglycerides Urine pH Urine Creatinine Urine Total Protein Vancomycin Trough Digoxin Crossmatch 11/01/19 11/02/19 11/02/19 18:18 03:40 03:40 WBC RBC 2.36 L Hgb 7.2 L Hct 20.8 L D MCV MCH MCHC 35 H RDW 16.8 H Plt Count Lymph % (Auto) [place] % (Auto) Lymph # [place] # Seg Neutrophils % Seg Neuts % (Manual) Lymphocytes % (Manual) Seg Neutrophils # Seg Neutrophils # Man Lymphocytes # (Manual) Monocytes # (Manual) POC ABG pH ABG pH POC ABG pCO2 POC ABG pO2 ABG pO2 ABG HCO3 ABG Base Excess ABG Hemoglobin Oxyhemoglobin Sodium 157 H D Potassium 3.0 L D Chloride 117.2 H Carbon Dioxide BUN 23 H Creatinine 0.6 L Glucose 101 H POC Glucose 120 H Calcium 6.4 L D Phosphorus Magnesium Direct Bilirubin AST Alkaline Phosphatase C-Reactive Protein Serum Total Protein Total Protein Albumin Prealbumin Iifcv-9-Sgahxlddh Vpwdg-6-Fkrjaoazj Gamma Globulins PEP Interpretation Triglycerides Urine pH Urine Creatinine Urine Total Protein Vancomycin Trough Digoxin Crossmatch 11/02/19 11/02/19 11/02/19 04:48 05:30 12:43 WBC RBC Hgb Hct MCV MCH MCHC RDW Plt Count Lymph % (Auto) [place] % (Auto) Lymph # [place] # Seg Neutrophils % Seg Neuts % (Manual) Lymphocytes % (Manual) Seg Neutrophils # Seg Neutrophils # Man Lymphocytes # (Manual) Monocytes # (Manual) POC ABG pH ABG pH POC ABG pCO2 50.1 H POC ABG pO2 74 L ABG pO2 ABG HCO3 ABG Base Excess ABG Hemoglobin Oxyhemoglobin Sodium 149 H D Potassium Chloride 110.0 H Carbon Dioxide BUN 23 H Creatinine 0.6 L Glucose POC Glucose 109 H Calcium 8.1 L D Phosphorus Magnesium 2.40 H Direct Bilirubin AST Alkaline Phosphatase C-Reactive Protein Serum Total Protein Total Protein Albumin Prealbumin Wcink-5-Tkcnmqrgb Sztnm-3-Bymrvivkb Gamma Globulins PEP Interpretation Triglycerides Urine pH Urine Creatinine Urine Total Protein Vancomycin Trough Digoxin Crossmatch 11/03/19 11/03/19 11/03/19 03:42 03:42 04:13 WBC RBC 2.93 L Hgb 8.5 L Hct 25.8 L MCV MCH MCHC RDW 16.9 H Plt Count Lymph % (Auto) [place] % (Auto) Lymph # [place] # Seg Neutrophils % Seg Neuts % (Manual) Lymphocytes % (Manual) Seg Neutrophils # Seg Neutrophils # Man Lymphocytes # (Manual) Monocytes # (Manual) POC ABG pH 7.540 H ABG pH POC ABG pCO2 POC ABG pO2 51 L ABG pO2 ABG HCO3 ABG Base Excess ABG Hemoglobin Oxyhemoglobin Sodium 147 H Potassium 3.5 L D Chloride 108.6 H Carbon Dioxide BUN Creatinine 0.6 L Glucose 109 H POC Glucose Calcium 8.3 L Phosphorus Magnesium Direct Bilirubin AST Alkaline Phosphatase C-Reactive Protein Serum Total Protein Total Protein Albumin Prealbumin Hgjwt-3-Gpqsljnqn Gmxuj-7-Htulwcnlo Gamma Globulins PEP Interpretation Triglycerides Urine pH Urine Creatinine Urine Total Protein Vancomycin Trough Digoxin Crossmatch 1211/03/19 11/03/19 04:28 12:04 23:02 WBC RBC Hgb Hct MCV MCH MCHC RDW Plt Count Lymph % (Auto) [place] % (Auto) Lymph # [place] # Seg Neutrophils % Seg Neuts % (Manual) Lymphocytes % (Manual) Seg Neutrophils # Seg Neutrophils # Man Lymphocytes # (Manual) Monocytes # (Manual) POC ABG pH ABG pH POC ABG pCO2 45.4 H POC ABG pO2 ABG pO2 ABG HCO3 ABG Base Excess ABG Hemoglobin Oxyhemoglobin Sodium Potassium Chloride Carbon Dioxide BUN Creatinine Glucose POC Glucose 109 H 111 H Calcium Phosphorus Magnesium Direct Bilirubin AST Alkaline Phosphatase C-Reactive Protein Serum Total Protein Total Protein Albumin Prealbumin [id number] Nowyq-7-[id number] Gamma Globulins PEP Interpretation Triglycerides Urine pH Urine Creatinine Urine Total Protein Vancomycin Trough Digoxin Crossmatch 11/04/19 11/04/19 11/04/19 05:00 05:00 05:19 WBC RBC 2.96 L Hgb 8.6 L Hct 25.5 L MCV MCH MCHC RDW 16.7 H Plt Count Lymph % (Auto) [place] % (Auto) Lymph # [place] # Seg Neutrophils % Seg Neuts % (Manual) Lymphocytes % (Manual) Seg Neutrophils # Seg Neutrophils # Man Lymphocytes # (Manual) Monocytes # (Manual) POC ABG pH ABG pH POC ABG pCO2 POC ABG pO2 ABG pO2 ABG HCO3 ABG Base Excess ABG Hemoglobin Oxyhemoglobin Sodium Potassium 3.5 L Chloride Carbon Dioxide BUN Creatinine 0.5 L Glucose 111 H POC Glucose 106 H Calcium 8.1 L Phosphorus Magnesium Direct Bilirubin AST Alkaline Phosphatase C-Reactive Protein Serum Total Protein Total Protein Albumin Prealbumin Upbho-8-Xqwsiedxy Losqg-0-Abvmekhbm Gamma Globulins PEP Interpretation Triglycerides Urine pH Urine Creatinine Urine Total Protein Vancomycin Trough Digoxin Crossmatch 11/04/19 11/05/19 11/05/19 12:40 00:28 04:19 WBC 12.4 H RBC 2.98 L Hgb 8.5 L Hct 25.5 L MCV MCH MCHC RDW 16.6 H Plt Count Lymph % (Auto) [place] % (Auto) Lymph # [place] # Seg Neutrophils % Seg Neuts % (Manual) Lymphocytes % (Manual) Seg Neutrophils # Seg Neutrophils # Man Lymphocytes # (Manual) Monocytes # (Manual) POC ABG pH ABG pH POC ABG pCO2 POC ABG pO2 ABG pO2 ABG HCO3 ABG Base Excess ABG Hemoglobin Oxyhemoglobin Sodium Potassium Chloride Carbon Dioxide BUN Creatinine Glucose POC Glucose 109 H 132 H Calcium Phosphorus Magnesium Direct Bilirubin AST Alkaline Phosphatase C-Reactive Protein Serum Total Protein Total Protein Albumin Prealbumin Swpen-1-Bxekychpy Lcfcc-8-Wjhlgslyq Gamma Globulins PEP Interpretation Triglycerides Urine pH Urine Creatinine Urine Total Protein Vancomycin Trough Digoxin Crossmatch 11/05/19 11/05/19 11/05/19 04:19 05:40 13:14 WBC RBC Hgb Hct MCV MCH MCHC RDW Plt Count Lymph % (Auto) [place] % (Auto) Lymph # [place] # Seg Neutrophils % Seg Neuts % (Manual) Lymphocytes % (Manual) Seg Neutrophils # Seg Neutrophils # Man Lymphocytes # (Manual) Monocytes # (Manual) POC ABG pH ABG pH POC ABG pCO2 POC ABG pO2 ABG pO2 ABG HCO3 ABG Base Excess ABG Hemoglobin Oxyhemoglobin Sodium Potassium 3.4 L Chloride Carbon Dioxide BUN Creatinine 0.4 L Glucose 106 H POC Glucose 136 H 145 H Calcium 8.2 L Phosphorus Magnesium Direct Bilirubin AST Alkaline Phosphatase C-Reactive Protein Serum Total Protein Total Protein Albumin Prealbumin Nsvwx-1-Nuuvtbkjg Wityg-4-Smjhnzrto Gamma Globulins PEP Interpretation Triglycerides Urine pH Urine Creatinine Urine Total Protein Vancomycin Trough Digoxin Crossmatch 11/05/19 11/05/19 11/06/19 18:29 23:42 05:00 WBC 12.2 H RBC 2.89 L Hgb 8.2 L Hct 24.9 L MCV MCH MCHC RDW 16.4 H Plt Count Lymph % (Auto) [place] % (Auto) Lymph # [place] # Seg Neutrophils % Seg Neuts % (Manual) Lymphocytes % (Manual) Seg Neutrophils # Seg Neutrophils # Man Lymphocytes # (Manual) Monocytes # (Manual) POC ABG pH ABG pH POC ABG pCO2 POC ABG pO2 ABG pO2 ABG HCO3 ABG Base Excess ABG Hemoglobin Oxyhemoglobin Sodium Potassium Chloride Carbon Dioxide BUN Creatinine Glucose POC Glucose 138 H 117 H Calcium Phosphorus Magnesium Direct Bilirubin AST Alkaline Phosphatase C-Reactive Protein Serum Total Protein Total Protein Albumin Prealbumin Otdgd-3-Snsjvtoyr Corli-4-Eaukxxdon Gamma Globulins PEP Interpretation Triglycerides Urine pH Urine Creatinine Urine Total Protein Vancomycin Trough Digoxin Crossmatch 11/06/19 11/06/19 11/06/19 05:00 05:22 17:39 WBC RBC Hgb Hct MCV MCH MCHC RDW Plt Count Lymph % (Auto) [place] % (Auto) Lymph # [place] # Seg Neutrophils % Seg Neuts % (Manual) Lymphocytes % (Manual) Seg Neutrophils # Seg Neutrophils # Man Lymphocytes # (Manual) Monocytes # (Manual) POC ABG pH ABG pH POC ABG pCO2 POC ABG pO2 ABG pO2 ABG HCO3 ABG Base Excess ABG Hemoglobin Oxyhemoglobin Sodium Potassium Chloride Carbon Dioxide BUN Creatinine 0.4 L Glucose 114 H POC Glucose 121 H 110 H Calcium 8.2 L Phosphorus Magnesium Direct Bilirubin AST Alkaline Phosphatase C-Reactive Protein Serum Total Protein Total Protein Albumin Prealbumin Amdqm-0-Blwnjenqq Nfnyi-7-Whybwmygs Gamma Globulins PEP Interpretation Triglycerides Urine pH Urine Creatinine Urine Total Protein Vancomycin Trough Digoxin Crossmatch 11/06/19 11/07/19 11/07/19 23:29 04:06 04:06 WBC 13.0 H RBC 2.80 L Hgb 7.9 L Hct 24.0 L MCV MCH MCHC RDW 16.5 H Plt Count Lymph % (Auto) 7.0 L [place] % (Auto) Lymph # 0.9 L [place] # Seg Neutrophils % 86.3 H Seg Neuts % (Manual) Lymphocytes % (Manual) Seg Neutrophils # 11.2 H Seg Neutrophils # Man Lymphocytes # (Manual) Monocytes # (Manual) POC ABG pH ABG pH POC ABG pCO2 POC ABG pO2 ABG pO2 ABG HCO3 ABG Base Excess ABG Hemoglobin Oxyhemoglobin Sodium Potassium Chloride Carbon Dioxide BUN Creatinine 0.4 L Glucose 110 H POC Glucose 113 H Calcium 8.2 L Phosphorus Magnesium Direct Bilirubin AST Alkaline Phosphatase C-Reactive Protein Serum Total Protein Total Protein Albumin Prealbumin Uoxlz-8-Kbwmmiufi Qojje-5-Hlahxtokv Gamma Globulins PEP Interpretation Triglycerides Urine pH Urine Creatinine Urine Total Protein Vancomycin Trough Digoxin Crossmatch 11/07/19 11/07/19 11/07/19 05:43 12:47 18:19 WBC RBC Hgb Hct MCV MCH MCHC RDW Plt Count Lymph % (Auto) [place] % (Auto) Lymph # [place] # Seg Neutrophils % Seg Neuts % (Manual) Lymphocytes % (Manual) Seg Neutrophils # Seg Neutrophils # Man Lymphocytes # (Manual) Monocytes # (Manual) POC ABG pH ABG pH POC ABG pCO2 POC ABG pO2 ABG pO2 ABG HCO3 ABG Base Excess ABG Hemoglobin Oxyhemoglobin Sodium Potassium Chloride Carbon Dioxide BUN Creatinine Glucose POC Glucose 114 H 120 H 112 H Calcium Phosphorus Magnesium Direct Bilirubin AST Alkaline Phosphatase C-Reactive Protein Serum Total Protein Total Protein Albumin Prealbumin Gwjrz-9-Rzwakrrdp Xutza-2-Wsotiifpx Gamma Globulins PEP Interpretation Triglycerides Urine pH Urine Creatinine Urine Total Protein Vancomycin Trough Digoxin Crossmatch 11/08/19 11/08/19 11/08/19 03:45 03:45 11:43 WBC 12.7 H RBC 2.82 L Hgb 7.8 L Hct 24.4 L MCV MCH MCHC RDW 16.5 H Plt Count Lymph % (Auto) 9.4 L [place] % (Auto) Lymph # [place] # 0.9 H Seg Neutrophils % 83.0 H Seg Neuts % (Manual) Lymphocytes % (Manual) Seg Neutrophils # 10.6 H Seg Neutrophils # Man Lymphocytes # (Manual) Monocytes # (Manual) POC ABG pH ABG pH POC ABG pCO2 POC ABG pO2 ABG pO2 ABG HCO3 ABG Base Excess ABG Hemoglobin Oxyhemoglobin Sodium Potassium Chloride Carbon Dioxide BUN Creatinine 0.4 L Glucose 107 H POC Glucose 118 H Calcium Phosphorus Magnesium Direct Bilirubin AST Alkaline Phosphatase C-Reactive Protein Serum Total Protein Total Protein Albumin Prealbumin Rxqan-8-Uxowzioig Duagj-9-Zlodpcymp Gamma Globulins PEP Interpretation Triglycerides Urine pH Urine Creatinine Urine Total Protein Vancomycin Trough Digoxin Crossmatch 11/08/19 11/09/19 11/09/19 23:45 12:41 12:56 WBC RBC Hgb Hct MCV MCH MCHC RDW Plt Count Lymph % (Auto) [place] % (Auto) Lymph # [place] # Seg Neutrophils % Seg Neuts % (Manual) Lymphocytes % (Manual) Seg Neutrophils # Seg Neutrophils # Man Lymphocytes # (Manual) Monocytes # (Manual) POC ABG pH ABG pH POC ABG pCO2 POC ABG pO2 ABG pO2 ABG HCO3 ABG Base Excess ABG Hemoglobin Oxyhemoglobin Sodium Potassium Chloride Carbon Dioxide BUN Creatinine Glucose POC Glucose 113 H 107 H 122 H Calcium Phosphorus Magnesium Direct Bilirubin AST Alkaline Phosphatase C-Reactive Protein Serum Total Protein Total Protein Albumin Prealbumin Bmxvp-6-Xedlggshy Bjhzt-0-Xqudhqfyx Gamma Globulins PEP Interpretation Triglycerides Urine pH Urine Creatinine Urine Total Protein Vancomycin Trough Digoxin Crossmatch 11/10/19 11/10/19 11/11/19 05:12 12:20 12:13 WBC RBC Hgb Hct MCV MCH MCHC RDW Plt Count Lymph % (Auto) [place] % (Auto) Lymph # [place] # Seg Neutrophils % Seg Neuts % (Manual) Lymphocytes % (Manual) Seg Neutrophils # Seg Neutrophils # Man Lymphocytes # (Manual) Monocytes # (Manual) POC ABG pH ABG pH POC ABG pCO2 POC ABG pO2 ABG pO2 ABG HCO3 ABG Base Excess ABG Hemoglobin Oxyhemoglobin Sodium Potassium Chloride Carbon Dioxide BUN Creatinine Glucose POC Glucose 127 H 125 H 107 H Calcium Phosphorus Magnesium Direct Bilirubin AST Alkaline Phosphatase C-Reactive Protein Serum Total Protein Total Protein Albumin Prealbumin Gztsp-4-Kyijdnspx Usrtu-9-Adicgaofr Gamma Globulins PEP Interpretation Triglycerides Urine pH Urine Creatinine Urine Total Protein Vancomycin Trough Digoxin Crossmatch 11/11/19 11/11/19 11/12/19 17:29 22:20 06:00 WBC RBC 2.77 L Hgb 7.8 L Hct 23.4 L MCV MCH MCHC RDW 16.6 H Plt Count Lymph % (Auto) 11.9 L [place] % (Auto) 8.9 H Lymph # [place] # 0.9 H Seg Neutrophils % 78.2 H Seg Neuts % (Manual) Lymphocytes % (Manual) Seg Neutrophils # 8.2 H Seg Neutrophils # Man Lymphocytes # (Manual) Monocytes # (Manual) POC ABG pH ABG pH POC ABG pCO2 POC ABG pO2 ABG pO2 ABG HCO3 ABG Base Excess ABG Hemoglobin Oxyhemoglobin Sodium Potassium Chloride Carbon Dioxide BUN Creatinine Glucose POC Glucose 120 H 109 H Calcium Phosphorus Magnesium Direct Bilirubin AST Alkaline Phosphatase C-Reactive Protein Serum Total Protein Total Protein Albumin Prealbumin Hmifo-3-Otozscsej Zmcbq-4-Ubnpwvdub Gamma Globulins PEP Interpretation Triglycerides Urine pH Urine Creatinine Urine Total Protein Vancomycin Trough Digoxin Crossmatch 11/12/19 11/12/19 11/12/19 07:52 11:58 23:44 WBC RBC Hgb Hct MCV MCH MCHC RDW Plt Count Lymph % (Auto) [place] % (Auto) Lymph # [place] # Seg Neutrophils % Seg Neuts % (Manual) Lymphocytes % (Manual) Seg Neutrophils # Seg Neutrophils # Man Lymphocytes # (Manual) Monocytes # (Manual) POC ABG pH ABG pH POC ABG pCO2 POC ABG pO2 ABG pO2 ABG HCO3 ABG Base Excess ABG Hemoglobin Oxyhemoglobin Sodium Potassium Chloride Carbon Dioxide BUN Creatinine Glucose POC Glucose 120 H 140 H 116 H Calcium Phosphorus Magnesium Direct Bilirubin AST Alkaline Phosphatase C-Reactive Protein Serum Total Protein Total Protein Albumin Prealbumin Synlb-4-Iqwgdtyiw Ypilf-5-Lrciejaad Gamma Globulins PEP Interpretation Triglycerides Urine pH Urine Creatinine Urine Total Protein Vancomycin Trough Digoxin Crossmatch 11/13/19 11/13/19 11/13/19 04:33 04:33 13:43 WBC 11.2 H RBC 2.90 L Hgb 8.1 L Hct 24.5 L MCV MCH MCHC RDW 16.5 H Plt Count Lymph % (Auto) 10.1 L [place] % (Auto) 7.6 H Lymph # 1.1 L [place] # 0.9 H Seg Neutrophils % 81.1 H Seg Neuts % (Manual) Lymphocytes % (Manual) Seg Neutrophils # 9.1 H Seg Neutrophils # Man Lymphocytes # (Manual) Monocytes # (Manual) POC ABG pH ABG pH POC ABG pCO2 POC ABG pO2 ABG pO2 ABG HCO3 ABG Base Excess ABG Hemoglobin Oxyhemoglobin Sodium 135 L Potassium Chloride 91.9 L Carbon Dioxide BUN Creatinine 0.6 L Glucose POC Glucose 122 H Calcium Phosphorus Magnesium Direct Bilirubin AST Alkaline Phosphatase C-Reactive Protein Serum Total Protein Total Protein Albumin Prealbumin Trcnb-3-Aimjnevet Gsmri-4-Cnmltsptj Gamma Globulins PEP Interpretation Triglycerides Urine pH Urine Creatinine Urine Total Protein Vancomycin Trough Digoxin Crossmatch 11/13/19 11/14/19 11/15/19 17:57 12:35 07:10 WBC 14.8 H RBC 2.89 L Hgb 7.8 L Hct 24.2 L MCV MCH 27 L MCHC RDW 16.9 H Plt Count Lymph % (Auto) [place] % (Auto) Lymph # [place] # Seg Neutrophils % Seg Neuts % (Manual) Lymphocytes % (Manual) Seg Neutrophils # Seg Neutrophils # Man Lymphocytes # (Manual) Monocytes # (Manual) POC ABG pH ABG pH POC ABG pCO2 POC ABG pO2 ABG pO2 ABG HCO3 ABG Base Excess ABG Hemoglobin Oxyhemoglobin Sodium Potassium Chloride Carbon Dioxide BUN Creatinine Glucose POC Glucose 127 H 148 H Calcium Phosphorus Magnesium Direct Bilirubin AST Alkaline Phosphatase C-Reactive Protein Serum Total Protein Total Protein Albumin Prealbumin Brubj-8-Bwscdouoi Egnpo-6-Llfuuzxgx Gamma Globulins PEP Interpretation Triglycerides Urine pH Urine Creatinine Urine Total Protein Vancomycin Trough Digoxin Crossmatch 11/15/19 11/15/19 11/16/19 07:10 20:16 10:26 WBC 14.4 H RBC 2.79 L Hgb 7.6 L Hct 23.5 L MCV MCH 27 L MCHC RDW 17.0 H Plt Count Lymph % (Auto) [place] % (Auto) Lymph # [place] # Seg Neutrophils % Seg Neuts % (Manual) Lymphocytes % (Manual) Seg Neutrophils # Seg Neutrophils # Man Lymphocytes # (Manual) Monocytes # (Manual) POC ABG pH ABG pH POC ABG pCO2 POC ABG pO2 ABG pO2 ABG HCO3 ABG Base Excess ABG Hemoglobin Oxyhemoglobin Sodium 133 L 136 L Potassium 3.5 L Chloride 93.7 L 97.4 L Carbon Dioxide BUN Creatinine 0.6 L 0.6 L Glucose 130 H POC Glucose Calcium Phosphorus Magnesium Direct Bilirubin AST Alkaline Phosphatase C-Reactive Protein Serum Total Protein Total Protein Albumin Prealbumin Qxdtk-5-Beybizizi Fhrvx-9-Uckczfcqe Gamma Globulins PEP Interpretation Triglycerides Urine pH Urine Creatinine Urine Total Protein Vancomycin Trough Digoxin Crossmatch 11/16/19 11/17/19 11/17/19 13:01 00:40 07:22 WBC 14.0 H RBC 2.71 L Hgb 7.4 L Hct 22.8 L MCV MCH 27 L MCHC RDW 17.2 H Plt Count Lymph % (Auto) [place] % (Auto) Lymph # [place] # Seg Neutrophils % Seg Neuts % (Manual) Lymphocytes % (Manual) Seg Neutrophils # Seg Neutrophils # Man Lymphocytes # (Manual) Monocytes # (Manual) POC ABG pH ABG pH POC ABG pCO2 POC ABG pO2 ABG pO2 ABG HCO3 ABG Base Excess ABG Hemoglobin Oxyhemoglobin Sodium Potassium Chloride Carbon Dioxide BUN Creatinine Glucose POC Glucose 117 H 124 H Calcium Phosphorus Magnesium Direct Bilirubin AST Alkaline Phosphatase C-Reactive Protein Serum Total Protein Total Protein Albumin Prealbumin Nahts-9-Bgwfqdfqa Cexfq-2-Pcuymyfas Gamma Globulins PEP Interpretation Triglycerides Urine pH Urine Creatinine Urine Total Protein Vancomycin Trough Digoxin Crossmatch 11/17/19 11/17/19 11/17/19 07:22 12:00 17:57 WBC RBC Hgb Hct MCV MCH MCHC RDW Plt Count Lymph % (Auto) [place] % (Auto) Lymph # [place] # Seg Neutrophils % Seg Neuts % (Manual) Lymphocytes % (Manual) Seg Neutrophils # Seg Neutrophils # Man Lymphocytes # (Manual) Monocytes # (Manual) POC ABG pH ABG pH POC ABG pCO2 POC ABG pO2 ABG pO2 ABG HCO3 ABG Base Excess ABG Hemoglobin Oxyhemoglobin Sodium 136 L Potassium Chloride 96.1 L Carbon Dioxide BUN 7 L Creatinine 0.5 L Glucose POC Glucose 130 H 111 H Calcium Phosphorus Magnesium Direct Bilirubin AST Alkaline Phosphatase C-Reactive Protein Serum Total Protein Total Protein Albumin Prealbumin Kemdl-1-Nxwexxdyk Afykv-6-Qpmrshhxh Gamma Globulins PEP Interpretation Triglycerides Urine pH Urine Creatinine Urine Total Protein Vancomycin Trough Digoxin Crossmatch 11/18/19 11/18/19 11/18/19 06:03 12:12 17:54 WBC RBC Hgb Hct MCV MCH MCHC RDW Plt Count Lymph % (Auto) [place] % (Auto) Lymph # [place] # Seg Neutrophils % Seg Neuts % (Manual) Lymphocytes % (Manual) Seg Neutrophils # Seg Neutrophils # Man Lymphocytes # (Manual) Monocytes # (Manual) POC ABG pH ABG pH POC ABG pCO2 POC ABG pO2 ABG pO2 ABG HCO3 ABG Base Excess ABG Hemoglobin Oxyhemoglobin Sodium Potassium Chloride Carbon Dioxide BUN Creatinine Glucose POC Glucose 113 H 124 H 128 H Calcium Phosphorus Magnesium Direct Bilirubin AST Alkaline Phosphatase C-Reactive Protein Serum Total Protein Total Protein Albumin Prealbumin Jaqyw-7-Ahmkgcgkv Vuvbv-2-Ayxhjzxdn Gamma Globulins PEP Interpretation Triglycerides Urine pH Urine Creatinine Urine Total Protein Vancomycin Trough Digoxin Crossmatch 11/19/19 11/19/19 11/20/19 00:54 08:03 11:31 WBC RBC Hgb Hct MCV MCH MCHC RDW Plt Count Lymph % (Auto) [place] % (Auto) Lymph # [place] # Seg Neutrophils % Seg Neuts % (Manual) Lymphocytes % (Manual) Seg Neutrophils # Seg Neutrophils # Man Lymphocytes # (Manual) Monocytes # (Manual) POC ABG pH ABG pH POC ABG pCO2 POC ABG pO2 ABG pO2 ABG HCO3 ABG Base Excess ABG Hemoglobin Oxyhemoglobin Sodium Potassium Chloride Carbon Dioxide BUN Creatinine Glucose POC Glucose 130 H 122 H 136 H Calcium Phosphorus Magnesium Direct Bilirubin AST Alkaline Phosphatase C-Reactive Protein Serum Total Protein Total Protein Albumin Prealbumin Jgvsz-7-Pyvycnncr Wzgcc-4-Fxfotvkxq Gamma Globulins PEP Interpretation Triglycerides Urine pH Urine Creatinine Urine Total Protein Vancomycin Trough Digoxin Crossmatch 11/20/19 11/20/19 11/20/19 17:17 Unknown Unknown WBC 17.8 H RBC 2.70 L Hgb 7.3 L Hct 22.5 L MCV 83 L MCH 27 L MCHC RDW 17.0 H Plt Count Lymph % (Auto) [place] % (Auto) Lymph # [place] # Seg Neutrophils % Seg Neuts % (Manual) Lymphocytes % (Manual) Seg Neutrophils # Seg Neutrophils # Man Lymphocytes # (Manual) Monocytes # (Manual) POC ABG pH ABG pH POC ABG pCO2 POC ABG pO2 ABG pO2 ABG HCO3 ABG Base Excess ABG Hemoglobin Oxyhemoglobin Sodium 132 L Potassium 3.5 L Chloride 95.4 L Carbon Dioxide 21 L BUN Creatinine 0.6 L Glucose 108 H POC Glucose 126 H Calcium Phosphorus Magnesium Direct Bilirubin AST Alkaline Phosphatase C-Reactive Protein Serum Total Protein Total Protein Albumin Prealbumin Gdpwb-1-Nmkxibrzf Wndke-5-Lnrdqyxzs Gamma Globulins PEP Interpretation Triglycerides Urine pH Urine Creatinine Urine Total Protein Vancomycin Trough Digoxin Crossmatch 11/21/19 11/21/19 11/21/19 07:40 07:40 12:29 WBC 15.1 H RBC 2.61 L Hgb 7.0 L Hct 21.5 L MCV 82 L MCH 27 L MCHC RDW 17.0 H Plt Count Lymph % (Auto) 9.0 L [place] % (Auto) 7.7 H Lymph # [place] # 1.2 H Seg Neutrophils % 81.5 H Seg Neuts % (Manual) Lymphocytes % (Manual) Seg Neutrophils # 12.3 H Seg Neutrophils # Man Lymphocytes # (Manual) Monocytes # (Manual) POC ABG pH ABG pH POC ABG pCO2 POC ABG pO2 ABG pO2 ABG HCO3 ABG Base Excess ABG Hemoglobin Oxyhemoglobin Sodium Potassium Chloride Carbon Dioxide BUN Creatinine 0.5 L Glucose POC Glucose 118 H Calcium Phosphorus Magnesium Direct Bilirubin AST Alkaline Phosphatase C-Reactive Protein Serum Total Protein Total Protein Albumin Prealbumin Ezosp-6-Klxokxulp Avhqz-6-Cmqlfohwi Gamma Globulins PEP Interpretation Triglycerides Urine pH Urine Creatinine Urine Total Protein Vancomycin Trough Digoxin Crossmatch 11/21/19 11/22/19 11/23/19 13:32 08:13 11:48 WBC 13.7 H RBC 2.99 L Hgb 8.2 L Hct 24.7 L MCV 83 L MCH 27 L MCHC RDW 16.5 H Plt Count Lymph % (Auto) 7.8 L [place] % (Auto) 7.5 H Lymph # 1.1 L [place] # 1.0 H Seg Neutrophils % 83.3 H Seg Neuts % (Manual) Lymphocytes % (Manual) Seg Neutrophils # 11.4 H Seg Neutrophils # Man Lymphocytes # (Manual) Monocytes # (Manual) POC ABG pH ABG pH POC ABG pCO2 POC ABG pO2 ABG pO2 ABG HCO3 ABG Base Excess ABG Hemoglobin Oxyhemoglobin Sodium Potassium Chloride Carbon Dioxide BUN Creatinine Glucose POC Glucose 159 H Calcium Phosphorus Magnesium Direct Bilirubin AST Alkaline Phosphatase C-Reactive Protein Serum Total Protein Total Protein Albumin Prealbumin Uuiga-7-Bmkkdmhdy Fvxrg-7-Ryasutmzd Gamma Globulins PEP Interpretation Triglycerides Urine pH Urine Creatinine Urine Total Protein Vancomycin Trough Digoxin Crossmatch See Detail 11/23/19 11/24/19 11/24/19 16:41 17:19 17:55 WBC 12.5 H RBC 2.94 L Hgb 8.0 L Hct 24.0 L MCV 82 L MCH 27 L MCHC RDW 16.4 H Plt Count Lymph % (Auto) [place] % (Auto) Lymph # [place] # Seg Neutrophils % Seg Neuts % (Manual) Lymphocytes % (Manual) Seg Neutrophils # Seg Neutrophils # Man Lymphocytes # (Manual) Monocytes # (Manual) POC ABG pH ABG pH POC ABG pCO2 POC ABG pO2 ABG pO2 ABG HCO3 ABG Base Excess ABG Hemoglobin Oxyhemoglobin Sodium Potassium Chloride Carbon Dioxide BUN Creatinine Glucose POC Glucose 131 H 127 H Calcium Phosphorus Magnesium Direct Bilirubin AST Alkaline Phosphatase C-Reactive Protein Serum Total Protein Total Protein Albumin Prealbumin Gnxpz-8-Oniswxstd Ugfgj-0-Fswgpkfzr Gamma Globulins PEP Interpretation Triglycerides Urine pH Urine Creatinine Urine Total Protein Vancomycin Trough Digoxin Crossmatch 11/24/19 11/25/19 11/25/19 17:55 07:23 07:23 WBC 13.6 H RBC 3.03 L Hgb 8.2 L Hct 24.6 L MCV 81 L MCH 27 L MCHC RDW 16.8 H Plt Count 441 H Lymph % (Auto) 10.3 L [place] % (Auto) Lymph # [place] # 0.9 H Seg Neutrophils % 81.2 H Seg Neuts % (Manual) Lymphocytes % (Manual) Seg Neutrophils # 11.1 H Seg Neutrophils # Man Lymphocytes # (Manual) Monocytes # (Manual) POC ABG pH ABG pH POC ABG pCO2 POC ABG pO2 ABG pO2 ABG HCO3 ABG Base Excess ABG Hemoglobin Oxyhemoglobin Sodium 135 L Potassium 3.3 L 3.4 L Chloride 97.3 L 95.0 L Carbon Dioxide BUN 7 L 5 L Creatinine 0.5 L 0.4 L Glucose 107 H POC Glucose Calcium Phosphorus Magnesium Direct Bilirubin AST Alkaline Phosphatase C-Reactive Protein Serum Total Protein Total Protein Albumin Prealbumin Uvyqr-3-Nbwtlbwml Btpin-6-Skuqmxlas Gamma Globulins PEP Interpretation Triglycerides Urine pH Urine Creatinine Urine Total Protein Vancomycin Trough Digoxin Crossmatch 11/25/19 11/26/19 11/26/19 16:58 11:35 17:46 WBC RBC Hgb Hct MCV MCH MCHC RDW Plt Count Lymph % (Auto) [place] % (Auto) Lymph # [place] # Seg Neutrophils % Seg Neuts % (Manual) Lymphocytes % (Manual) Seg Neutrophils # Seg Neutrophils # Man Lymphocytes # (Manual) Monocytes # (Manual) POC ABG pH ABG pH POC ABG pCO2 POC ABG pO2 ABG pO2 ABG HCO3 ABG Base Excess ABG Hemoglobin Oxyhemoglobin Sodium Potassium Chloride Carbon Dioxide BUN Creatinine Glucose POC Glucose 135 H 135 H 219 H Calcium Phosphorus Magnesium Direct Bilirubin AST Alkaline Phosphatase C-Reactive Protein Serum Total Protein Total Protein Albumin Prealbumin Seqyt-2-Pntubncjh Fgbum-9-Dthvzymmm Gamma Globulins PEP Interpretation Triglycerides Urine pH Urine Creatinine Urine Total Protein Vancomycin Trough Digoxin Crossmatch
--- NOTE | 2019-11-27 18:51 | Progress Note ---
Assessment and Plan Assessment and plan: Acute blood loss anemia s/p PRBCs. H&H currently stable. Sepsis, improved. Completed Abx per ID. Dehiscence of closure of fascia s/p ex lap with closure of abdominal wall and wound vac placement 10/05 ; s/p Re-exploration, washout, transection of colon, Abthera placement -10/13; s/p abd washout, partial omentectomy, partial colectomy with colostomy - 10/16. s/p abd washout, feeding tube placement, AbThera placement - 10/19; Abdominal washout and closure - 10/22. Acute Respiratory failure with hypoxia -Extubated 10/25/19 -Re-intubated 10/30 -Patient self extubated morning of 11/04, now on Oxygen by [place] -Multifactorial secondary to pneumonia, pneumothorax and COPD Left pneumothorax s/p chest tube placed 10/30 Resolved. Left lower lobe pneumonia -CTA chest showed left lower lobe consolidation with pleural effusion COPD -Stable -cont neb tx GUILLERMO on CKD -due to ATN due to sepsis -Resolved. -No hydronephrosis on CT Acute Toxic Metabolic Encephalopathy/Delirium Tremens. Resolved. -Continue CIWA protocol due to hx of ETOH abuse, 6packs a day -Head CT scan negative for acute findings SVT, Atrial fib/flutter with RVR -treated with adenosine x1 -off amiodarone and cardizem drip. On oral amiodarone -HR currently controlled -Cardiology following Hx of Hypertension -Stable Hyperlipidemia -stable Atypical chest pain -probably secondary to pneumonitis -troponin levels neg Hx of MT/CAD -s/p PCI of the circumflex and second vessel POBA of the distal LAD occlusion. Left ventricle fraction of 45-50%. Moderate Protein calorie malnutrition -Nutrition following Tobacco abuse -Cessation recommended Morbid obesity with BMI of 43.4 -Lifestyle modification recommended DVT and GI ppx: Lovenox/PPI Disposition. Plan is to discharge to acute rehab when accepted History Interval history: Patient seen and examined medical records reviewed Patient feels slightly better Awaiting acute rehabilitation placement Vital signs noted Hospitalist Physical - Constitutional Vitals: Temp Pulse Resp BP Pulse Ox 98.8 F 86 16 111/54 97 11/27/19 11:50 11/27/19 15:29 11/27/19 15:29 11/27/19 11:50 11/27/19 11:50 General appearance: Present: no acute distress, obese - EENT Eyes: Present: PERRL, EOM intact - Neck Neck: Present: supple, normal ROM - Respiratory Respiratory effort: normal Respiratory: bilateral: diminished, rales, negative: rhonchi, wheezing - Cardiovascular Heart Sounds: Present: S1 & S2 - Extremities Extremities: no ischemia, No edema - Abdominal General gastrointestinal: soft, non-tender, non-distended, normal bowel sounds, other (surgical drains in place and functional) - Integumentary Integumentary: Present: clear, warm - Psychiatric Psychiatric: appropriate mood/affect, cooperative - Neurologic Neurologic: moves all extremities KEATON score - Keaton Score Age > 65: (0) No Aspirin use within the Past 7 Days: (0) No 3 or more CAD Risk Factors: (1) Yes 2 or more Angina events in past 24 hrs: (1) Yes Known CAD with more than 50% Stenosis: (0) No Elevated Cardiac Markers: (0) No ST Deviation Greater than 0.5mm: (1) Yes KEATON Score: 3 Results - Labs CBC & Chem 7: 11/28/19 05:30 11/28/19 05:30 Labs: Laboratory Last Values WBC 13.6 K/mm3 (4.5-11.0) H 11/25/19 07:23 RBC 3.03 M/mm3 (3.65-5.03) L 11/25/19 07:23 Hgb 8.2 gm/dl (11.8-15.2) L 11/25/19 07:23 Hct 24.6 % (35.5-45.6) L 11/25/19 07:23 MCV 81 fl (84-94) L 11/25/19 07:23 MCH 27 pg (28-32) L 11/25/19 07:23 MCHC 33 % (32-34) 11/25/19 07:23 RDW 16.8 % (13.2-15.2) H 11/25/19 07:23 Plt Count 441 K/mm3 (140-440) H 11/25/19 07:23 Lymph % (Auto) 10.3 % (13.4-35.0) L 11/25/19 07:23 [place] % (Auto) 7.0 % (0.0-7.3) 11/25/19 07:23 Eos % (Auto) 1.0 % (0.0-4.3) 11/25/19 07:23 Baso % (Auto) 0.5 % (0.0-1.8) 11/25/19 07:23 Lymph # 1.4 K/mm3 (1.2-5.4) 11/25/19 07:23 [place] # 0.9 K/mm3 (0.0-0.8) H 11/25/19 07:23 Eos # 0.1 K/mm3 (0.0-0.4) 11/25/19 07:23 Baso # 0.1 K/mm3 (0.0-0.1) 11/25/19 07:23 Add Manual Diff Complete 10/16/19 09:20 Total Counted 100 10/16/19 09:20 Seg Neutrophils % 81.2 % (40.0-70.0) H 11/25/19 07:23 Seg Neuts % (Manual) 79.0 % (40.0-70.0) H 10/16/19 09:20 Band Neutrophils % 12.0 % 10/16/19 09:20 Lymphocytes % (Manual) 4.0 % (13.4-35.0) L 10/16/19 09:20 Reactive Lymphs % (Man) 0 % 10/16/19 09:20 Monocytes % (Manual) 2.0 % (0.0-7.3) 10/16/19 09:20 Eosinophils % (Manual) 0 % (0.0-4.3) 10/16/19 09:20 Basophils % (Manual) 0 % (0.0-1.8) 10/16/19 09:20 Metamyelocytes % 2.0 % 10/16/19 09:20 Myelocytes % 1.0 % 10/16/19 09:20 Promyelocytes % 0 % 10/16/19 09:20 Blast Cells % 0 % 10/16/19 09:20 Nucleated RBC % Not Reportable 10/16/19 09:20 Seg Neutrophils # 11.1 K/mm3 (1.8-7.7) H 11/25/19 07:23 Seg Neutrophils # Man 11.5 K/mm3 (1.8-7.7) H 10/16/19 09:20 Band Neutrophils # 1.8 K/mm3 10/16/19 09:20 Lymphocytes # (Manual) 0.6 K/mm3 (1.2-5.4) L 10/16/19 09:20 Abs React Lymphs (Man) 0.0 K/mm3 10/16/19 09:20 Monocytes # (Manual) 0.3 K/mm3 (0.0-0.8) 10/16/19 09:20 Eosinophils # (Manual) 0.0 K/mm3 (0.0-0.4) 10/16/19 09:20 Basophils # (Manual) 0.0 K/mm3 (0.0-0.1) 10/16/19 09:20 Metamyelocytes # 0.3 K/mm3 10/16/19 09:20 Myelocytes # 0.1 K/mm3 10/16/19 09:20 Promyelocytes # 0.0 K/mm3 10/16/19 09:20 Blast Cells # 0.0 K/mm3 10/16/19 09:20 WBC Morphology Not Reportable 10/16/19 09:20 Hypersegmented Neuts Not Reportable 10/16/19 09:20 Hyposegmented Neuts Not Reportable 10/16/19 09:20 Hypogranular Neuts Not Reportable 10/16/19 09:20 Smudge Cells Not Reportable 10/16/19 09:20 Toxic Granulation Not Reportable 10/16/19 09:20 Toxic Vacuolation Not Reportable 10/16/19 09:20 Dohle Bodies Not Reportable 10/16/19 09:20 Pelger-Huet Anomaly Not Reportable 10/16/19 09:20 Andres Rods Not Reportable 10/16/19 09:20 Platelet Estimate Consistent w auto 10/16/19 09:20 Clumped Platelets Not Reportable 10/16/19 09:20 Plt Clumps, EDTA Not Reportable 10/16/19 09:20 Large Platelets Not Reportable 10/16/19 09:20 Giant Platelets Not Reportable 10/16/19 09:20 Platelet Satelliting Not Reportable 10/16/19 09:20 Plt Morphology Comment Not Reportable 10/16/19 09:20 RBC Morphology Not Reportable 10/16/19 09:20 Dimorphic RBCs Not Reportable 10/16/19 09:20 Polychromasia Few 10/16/19 09:20 Hypochromasia Few 10/16/19 09:20 Poikilocytosis Not Reportable 10/16/19 09:20 Anisocytosis Not Reportable 10/16/19 09:20 Microcytosis Not Reportable 10/16/19 09:20 Macrocytosis Not Reportable 10/16/19 09:20 Spherocytes Not Reportable 10/16/19 09:20 Pappenheimer Bodies Not Reportable 10/16/19 09:20 Sickle Cells Not Reportable 10/16/19 09:20 Target Cells Few 10/16/19 09:20 Tear Drop Cells Not Reportable 10/16/19 09:20 Ovalocytes Not Reportable 10/16/19 09:20 Helmet Cells Not Reportable 10/16/19 09:20 [place] Bodies Not Reportable 10/16/19 09:20 [place] Rings Not Reportable 10/16/19 09:20 [place] Cells Not Reportable 10/16/19 09:20 Bite Cells Not Reportable 10/16/19 09:20 Crenated Cell Not Reportable 10/16/19 09:20 Elliptocytes Not Reportable 10/16/19 09:20 Acanthocytes (Spur) Not Reportable 10/16/19 09:20 Rouleaux Not Reportable 10/16/19 09:20 Hemoglobin C Crystals Not Reportable 10/16/19 09:20 Schistocytes Not Reportable 10/16/19 09:20 Malaria parasites Not Reportable 10/16/19 09:20 Toni Bodies Not Reportable 10/16/19 09:20 Hem Pathologist Commnt No 10/16/19 09:20 POC ABG pH 7.422 (7.35-7.45) 11/03/19 04:28 ABG pH 7.390 pH Units (7.350-7.450) 10/23/19 04:47 POC ABG pCO2 45.4 (35-45) H 11/03/19 04:28 ABG pCO2 48.4 mm Hg 10/23/19 04:47 POC ABG pO2 83 (80-105) 11/03/19 04:28 ABG pO2 68.9 mm Hg (80.0-90.0) L 10/23/19 04:47 POC ABG HCO3 29.6 (22-26 mml/L) 11/03/19 04:28 ABG HCO3 28.7 mmol/L (20.0-26.0) H 10/23/19 04:47 POC ABG Total CO2 31 (23-27mmol/L) 11/03/19 04:28 POC ABG O2 Sat 96 11/03/19 04:28 ABG O2 Saturation 96.6 % (95.0-99.0) 10/23/19 04:47 ABG O2 Content 8.8 (0.0-44) 10/23/19 04:47 POC ABG Base Excess 5 ((-2) - (+3)mmol/L) 11/03/19 04:28 ABG Base Excess 3.4 mmol/L (-2.0-3.0) H 10/23/19 04:47 ABG Hemoglobin 6.6 gm/dl (14.0-18.0) L 10/23/19 04:47 ABG Carboxyhemoglobin 2.1 % (0.0-5.0) 10/23/19 04:47 ABG Methemoglobin 0.5 % (0.0-1.5) 10/23/19 04:47 Oxyhemoglobin 94.1 % (95.0-99.0) L 10/23/19 04:47 FiO2 40 % 11/03/19 04:28 Sodium 135 mmol/L (137-145) L 11/25/19 07:23 Potassium 3.4 mmol/L (3.6-5.0) L 11/25/19 07:23 Chloride 95.0 mmol/L (98-107) L 11/25/19 07:23 Carbon Dioxide 24 mmol/L (22-30) 11/25/19 07:23 Anion Gap 19 mmol/L 11/25/19 07:23 BUN 5 mg/dL (9-20) L 11/25/19 07:23 Creatinine 0.4 mg/dL (0.8-1.5) L 11/25/19 07:23 Estimated GFR > 60 ml/min 11/25/19 07:23 BUN/Creatinine Ratio 13 % 11/25/19 07:23 Glucose 82 mg/dL (75-100) 11/25/19 07:23 POC Glucose 137 (70-105) H 11/27/19 17:13 Hemoglobin A1c 5.7 % (4-6) 10/06/19 05:36 Lactic Acid 1.10 mmol/L (0.7-2.0) 10/13/19 04:20 Calcium 8.7 mg/dL (8.4-10.2) 11/25/19 07:23 Ionized Calcium 5.2 mg/dL (4.8-5.6) 10/18/19 07:41 Phosphorus 2.70 mg/dL (2.5-4.5) 11/02/19 12:43 Magnesium 2.40 mg/dL (1.7-2.3) H 11/02/19 12:43 Total Bilirubin 1.10 mg/dL (0.1-1.2) 10/26/19 06:15 Direct Bilirubin 0.7 mg/dL (0-0.2) H 10/23/19 10:44 Indirect Bilirubin 0.1 mg/dL 10/23/19 10:44 AST 23 units/L (5-40) 10/26/19 06:15 ALT 13 units/L (7-56) 10/26/19 06:15 Alkaline Phosphatase 148 units/L (35-129) H 10/26/19 06:15 Ammonia 49.0 umol/L (25-60) 10/13/19 04:20 Troponin T < 0.010 ng/mL (0.00-0.029) 10/09/19 17:23 C-Reactive Protein 30.60 mg/dL (0.00-1.30) H 10/15/19 04:32 Serum Total Protein 5.2 g/dL (6.1-8.1) L 10/11/19 09:00 Total Protein 5.9 g/dL (6.3-8.2) L 10/26/19 06:15 Albumin 2.4 g/dL (3.9-5) L 10/26/19 06:15 Albumin/Globulin Ratio 0.7 % 10/26/19 06:15 Prealbumin 0.030 g/L (0.200-0.400) L 10/15/19 04:32 [id number] See scanned result 10/11/19 Unknown Lqril-2-Oemzvacta See scanned result 10/11/19 Unknown Beta Globulins See scanned result 10/11/19 Unknown Gamma Globulins See scanned result 10/11/19 Unknown Abnorm Protein Band 1 see below 10/11/19 09:00 PEP Interpretation See scanned result 10/11/19 Unknown Triglycerides 185 mg/dL (2-149) H 10/26/19 06:15 Urine Color Yellow (Yellow) 10/26/19 Unknown Urine Turbidity Clear (Clear) 10/26/19 Unknown Urine pH 9.0 (5.0-7.0) H 10/26/19 Unknown Ur Specific [place] 1.011 (1.003-1.030) 10/26/19 Unknown Urine Protein 30 mg/dl mg/dL (Negative) 10/26/19 Unknown Urine Glucose (UA) Neg mg/dL (Negative) 10/26/19 Unknown Urine Ketones Neg mg/dL (Negative) 10/26/19 Unknown Urine Blood Neg (Negative) 10/26/19 Unknown Urine Nitrite Neg (Negative) 10/26/19 Unknown Urine Bilirubin Neg (Negative) 10/26/19 Unknown Urine Urobilinogen < 2.0 mg/dL (<2.0) 10/26/19 Unknown Ur Leukocyte Esterase Neg (Negative) 10/26/19 Unknown Urine WBC (Auto) 1.0 /HPF (0.0-6.0) 10/26/19 Unknown Urine RBC (Auto) 1.0 /HPF (0.0-6.0) 10/26/19 Unknown Urine Bacteria (Auto) 1+ /HPF (Negative) 10/11/19 06:23 Urine Mucus Few /HPF 10/26/19 Unknown Urine Eosinophils None seen (None Seen) 10/11/19 06:23 Ur Random Creatinine See scanned result 10/11/19 Unknown U Random Total Protein See scanned result 10/11/19 Unknown Urine Creatinine 116.8 mg/dL (0.1-20.0) H 10/11/19 06:23 Urine Creatinine 118.2 mg/dL (0.1-20.0) H 10/11/19 06:23 Protein/Creatinin Ratio See scanned result 10/11/19 Unknown Urine Sodium 14 mmol/L 10/11/19 06:23 Urine Total Protein 104 mg/dL (5-11.8) H 10/11/19 06:23 Urine Total Protein 105 mg/dL (5-11.8) H 10/11/19 06:23 U Abnormal Prot Band 1 See scanned result 10/11/19 Unknown U Abnormal Prot Band 2 See scanned result 10/11/19 Unknown U Abnormal Prot Band 3 See scanned result 10/11/19 Unknown Vancomycin Trough 5.7 ug/mL (5.0-20.0) 11/05/19 09:00 Random Vancomycin 9.6 ug/mL (0-40.0) 11/03/19 03:42 Digoxin 0.7 ng/mL (0.9-2.0) L 10/19/19 04:21 Blood Type A POSITIVE 11/21/19 13:32 Antibody Screen Negative 11/21/19 13:32 Crossmatch See Detail 11/21/19 13:32 Active Medications - Current Medications Current Medications: Generic Name Dose Route Start Last Admin Trade Name Freq PRN Reason Stop Dose Admin Acetaminophen 650 mg 11/24/19 12:28 11/26/19 11:50 Tylenol PO 650 mg Q6H PRN Administration Pain, Mild (1-3) Acetaminophen/Hydrocodone Bitart 1 each 11/24/19 12:27 11/27/19 16:12 [place] 10/325 PO 1 each Q6H PRN Administration Pain, Moderate (4-6) Albuterol/Ipratropium 1 ampul 11/23/19 08:00 11/27/19 15:29 Duoneb *Not For Prn Use* IH 1 ampul TIDRT VERÓNICA Administration Amiodarone HCl 200 mg 10/23/19 13:00 11/27/19 09:47 Cordarone PO 200 mg QDAY VERÓNICA Administration Arformoterol Tartrate 15 mcg 10/06/19 08:30 11/27/19 08:24 Brovana Nebu IH 15 mcg Q12HRT VERÓNICA Administration Budesonide 0.5 mg 10/07/19 12:20 11/27/19 08:23 Pulmicort IH 0.5 mg Q12HRT VERÓNICA Administration Citalopram Hydrobromide 20 mg 10/27/19 12:00 11/27/19 09:47 Celexa PO 20 mg DAILY VERÓNICA Administration Diphenhydramine HCl 25 mg 11/17/19 20:15 11/17/19 20:58 Benadryl PO 25 mg Q6H PRN Administration Itching Enoxaparin Sodium 40 mg 11/05/19 22:00 11/26/19 22:16 Enoxaparin SUB-Q 40 mg QDAY@2200 [facility] Administration Haloperidol Lactate 5 mg 10/25/19 18:22 11/12/19 03:33 Haldol IV 5 mg Q6H PRN Administration Agitation Hydralazine HCl 10 mg 10/28/19 14:09 11/02/19 15:34 Apresoline IV 10 mg Q4HR PRN Administration Hypertension Hydromorphone HCl 1 mg 11/24/19 12:28 11/26/19 01:09 Dilaudid IV 1 mg Q4H PRN Administration Pain , Severe (7-10) Insulin Human Lispro 0 unit 10/14/19 12:00 11/27/19 18:22 Humalog SUB-Q Not Given Q6HR [facility] Protocol Metoprolol Tartrate 2.5 mg 10/15/19 15:34 11/01/19 18:00 Metoprolol IV 2.5 mg Q4HR PRN Administration HR >130 Metoprolol Tartrate 12.5 mg 11/21/19 16:00 11/27/19 16:10 Metoprolol PO Not Given Q8HR [facility] Multi-Ingred Cream/Lotion/Oil/Oint 1 applic 10/14/19 02:19 Artificial Tears Ophth Oint OU Q4HR PRN Dry Eye(s) Pantoprazole Sodium 40 mg 11/20/19 10:00 11/27/19 09:47 Protonix PO 40 mg DAILY [facility] Administration Sodium Chloride 10 ml 11/07/19 19:32 11/25/19 22:03 Sodium Chloride Flush Syringe 10 Ml IV 10 ml PRN PRN Administration LINE FLUSH Zolpidem Tartrate 5 mg 11/10/19 21:00 11/11/19 03:30 Ambien FEEDTUBE 5 mg QHS PRN Administration Sleep Nutrition/Malnutrition Assess - Dietary Evaluation Nutrition/Malnutrition Findings: Nutrition Notes Start: 10/08/19 11:36 Freq: Status: Active Protocol: Document 11/22/19 12:23 JENN (Rec: 11/22/19 12:35 JENN [id number]) Co-Sign 11/22/19 12:23 LP Nutrition Notes Initial or Follow up Reassessment Current Diagnosis Acute Kidney Injury,COPD, Hypertension Other Pertinent Diagnosis intra-abdominal infection, disruption of bowel anastomosis, LE edema Current Diet Regular Labs/Tests Cr 0.5 Pertinent Medications Dilaudid Height 6 ft Weight 107.2 kg [place] Body Weight (kg) 80.90 BMI 32.0 Weight change and time frame Wt change noted. [facility] Possibly inaccurate wt Weight Status Morbidly Obese Subjective/Other Information F/U for PO intakes. Pt stated his appetite was good. Pt ate about 75% of breakfast. Pt stated that he got outside food for all meals yesterday. Percent of energy/protein needs met: unable to determine Burn Absent Trauma Absent GI Symptoms None Current % PO Good (75-100%) Minimum of two criteria No Fluid Accumulation Mild (non-severe) #1 Nutrition Diagnosis Increased nutrient needs ( specify in comment below) Diagnosis Progress(for reassessment Continues documentation) Is patient on ventilator? No Is Patient Ambulatory and/or Out of Bed No REE-([place]-confined to bed) 2332.092 Kcal/Kg value to use for calculation 19 Approximate Energy Requirements Using 2037 kcal/Kg Calculation Used for Recommendations Kcal/kg Additional Notes Protein: 136-169g (1.2-1.5g/kg ) AdjBW 113kg Fluid 1 ml/kcal or per MD Nutrition Intervention Change Diet Order: Continue regular Goal #1 Meet at least 80% of energy and protein needs via PO intakes Anticipated Discharge Needs: Regular diet Follow-Up By: 11/29/19 Additional Comments F/U for PO intakes
[2019-11-27] MEDS: ENOXAPARIN 40 MG/0.4 ML INJ SUB-Q SCH (22:16)
[2019-11-28] MEDS: INSULIN LISPRO 100 UNIT/ML SUB-Q SCH ×4 (00:38→17:18)
[2019-11-28 05:39] LABS: Basophils # (Auto) 0.1 K/mm3 (0.0-0.1); Basophils % (Auto) 0.6 % (0.0-1.8); Eosinophils # (Auto) 0.1 K/mm3 (0.0-0.4); Eosinophils % (Auto) 0.4 % (0.0-4.3); Hematocrit 24.4 % (35.5-45.6); Lymphocytes # (Auto) 1.5 K/mm3 (1.2-5.4); Lymphocytes % (Auto) 9.9 % (13.4-35.0); Mean Corpuscular HGB Conc 33 % (32-34); Mean Corpuscular Volume 82 fl (84-94); Monocytes % (Auto) 6.4 % (0.0-7.3); Platelet Count 422 K/mm3 (140-440); Red Blood Count 2.97 M/mm3 (3.65-5.03)
[2019-11-28 05:54] LABS: Alanine Aminotransferase 9 units/L (7-56); Albumin 2.2 g/dL (3.9-5); BUN/Creatinine Ratio 12; Blood Urea Nitrogen 6 mg/dL (9-20); Calcium 8.4 mg/dL (8.4-10.2); Hemolysis Index 0
[2019-11-28] MEDS: METOPROLOL TARTRATE 50 MG TAB PO SCH ×3 (06:16→21:21)
[2019-11-28] MEDS: HYDROcodone/ACETAMINOPHEN 10-325MG TAB PO PRN ×3 (08:30→21:21)
[2019-11-28] MEDS: CITALOPRAM 20 MG TAB PO SCH (08:59)
[2019-11-28] MEDS: PANTOPRAZOLE 40 MG TAB PO SCH (08:59)
[2019-11-28] MEDS: AMIODARONE 200 MG TAB PO SCH (08:59)
[2019-11-28] MEDS: BUDESONIDE 0.5 MG/2 ML NEBU IH SCH ×2 (09:40→21:27)
[2019-11-28] MEDS: ARFORMOTEROL 15 MCG/2 ML NEBU IH SCH ×2 (09:41→21:27)
[2019-11-28] MEDS: IPRATROPIUM/ALBUTEROL SULFATE 3 ML AMPUL.NEB IH SCH ×3 (09:41→21:27)
--- NOTE | 2019-11-28 20:15 | Progress Note ---
Assessment and Plan Assessment and plan: Acute blood loss anemia s/p PRBCs. H&H currently stable. Sepsis, improved. Completed Abx per ID. Dehiscence of closure of fascia s/p ex lap with closure of abdominal wall and wound vac placement 10/05 ; s/p Re-exploration, washout, transection of colon, Abthera placement -10/13; s/p abd washout, partial omentectomy, partial colectomy with colostomy - 10/16. s/p abd washout, feeding tube placement, AbThera placement - 10/19; Abdominal washout and closure - 10/22. Acute Respiratory failure with hypoxia -Extubated 10/25/19 -Re-intubated 10/30 -Patient self extubated morning of 11/04, now on Oxygen by ND -Multifactorial secondary to pneumonia, pneumothorax and COPD Left pneumothorax s/p chest tube placed 10/30 Resolved. Left lower lobe pneumonia -CTA chest showed left lower lobe consolidation with pleural effusion COPD -Stable -cont neb tx GUILLERMO on CKD -due to ATN due to sepsis -Resolved. -No hydronephrosis on CT Acute Toxic Metabolic Encephalopathy/Delirium Tremens. Resolved. -Continue CIWA protocol due to hx of ETOH abuse, 6packs a day -Head CT scan negative for acute findings SVT, Atrial fib/flutter with RVR -treated with adenosine x1 -off amiodarone and cardizem drip. On oral amiodarone -HR currently controlled -Cardiology following Hx of Hypertension -Stable Hyperlipidemia -stable Atypical chest pain -probably secondary to pneumonitis -troponin levels neg Hx of AR/CAD -s/p PCI of the circumflex and second vessel POBA of the distal LAD occlusion. Left ventricle fraction of 45-50%. Moderate Protein calorie malnutrition -Nutrition following Tobacco abuse -Cessation recommended Morbid obesity with BMI of 43.4 -Lifestyle modification recommended DVT and GI ppx: Lovenox/PPI Disposition. Patient is stable, awaiting acute rehabilitation placement History Interval history: Patient seen and examined medical records reviewed Patient is clinically stable Awaiting acute rehabilitation placement Vital signs noted Hospitalist Physical - Constitutional Vitals: Temp Pulse Resp BP Pulse Ox 98.1 F 86 18 102/49 95 11/28/19 16:56 11/28/19 17:17 11/28/19 16:56 11/28/19 17:17 11/28/19 16:56 General appearance: Present: no acute distress, well-nourished, obese - EENT Eyes: Present: PERRL, EOM intact - Neck Neck: Present: supple, normal ROM - Respiratory Respiratory effort: normal Respiratory: bilateral: diminished, negative: rales, rhonchi, wheezing - Cardiovascular Rhythm: regular Heart Sounds: Present: S1 & S2 - Extremities Extremities: no ischemia, No edema - Abdominal General gastrointestinal: soft, non-tender, non-distended, normal bowel sounds - Integumentary Integumentary: Present: clear, warm - Psychiatric Psychiatric: appropriate mood/affect, cooperative - Neurologic Neurologic: moves all extremities KEATON score - Keaton Score Age > 65: (0) No Aspirin use within the Past 7 Days: (0) No 3 or more CAD Risk Factors: (1) Yes 2 or more Angina events in past 24 hrs: (1) Yes Known CAD with more than 50% Stenosis: (0) No Elevated Cardiac Markers: (0) No ST Deviation Greater than 0.5mm: (1) Yes KEATON Score: 3 Results - Labs CBC & Chem 7: 11/28/19 05:30 11/28/19 05:30 Labs: Laboratory Last Values WBC 15.1 K/mm3 (4.5-11.0) H 11/28/19 05:30 RBC 2.97 M/mm3 (3.65-5.03) L 11/28/19 05:30 Hgb 8.0 gm/dl (11.8-15.2) L 11/28/19 05:30 Hct 24.4 % (35.5-45.6) L 11/28/19 05:30 MCV 82 fl (84-94) L 11/28/19 05:30 MCH 27 pg (28-32) L 11/28/19 05:30 MCHC 33 % (32-34) 11/28/19 05:30 RDW 17.0 % (13.2-15.2) H 11/28/19 05:30 Plt Count 422 K/mm3 (140-440) 11/28/19 05:30 Lymph % (Auto) 9.9 % (13.4-35.0) L 11/28/19 05:30 [place] % (Auto) 6.4 % (0.0-7.3) 11/28/19 05:30 Eos % (Auto) 0.4 % (0.0-4.3) 11/28/19 05:30 Baso % (Auto) 0.6 % (0.0-1.8) 11/28/19 05:30 Lymph # 1.5 K/mm3 (1.2-5.4) 11/28/19 05:30 [place] # 1.0 K/mm3 (0.0-0.8) H 11/28/19 05:30 Eos # 0.1 K/mm3 (0.0-0.4) 11/28/19 05:30 Baso # 0.1 K/mm3 (0.0-0.1) 11/28/19 05:30 Add Manual Diff Complete 10/16/19 09:20 Total Counted 100 10/16/19 09:20 Seg Neutrophils % 82.7 % (40.0-70.0) H 11/28/19 05:30 Seg Neuts % (Manual) 79.0 % (40.0-70.0) H 10/16/19 09:20 Band Neutrophils % 12.0 % 10/16/19 09:20 Lymphocytes % (Manual) 4.0 % (13.4-35.0) L 10/16/19 09:20 Reactive Lymphs % (Man) 0 % 10/16/19 09:20 Monocytes % (Manual) 2.0 % (0.0-7.3) 10/16/19 09:20 Eosinophils % (Manual) 0 % (0.0-4.3) 10/16/19 09:20 Basophils % (Manual) 0 % (0.0-1.8) 10/16/19 09:20 Metamyelocytes % 2.0 % 10/16/19 09:20 Myelocytes % 1.0 % 10/16/19 09:20 Promyelocytes % 0 % 10/16/19 09:20 Blast Cells % 0 % 10/16/19 09:20 Nucleated RBC % Not Reportable 10/16/19 09:20 Seg Neutrophils # 12.5 K/mm3 (1.8-7.7) H 11/28/19 05:30 Seg Neutrophils # Man 11.5 K/mm3 (1.8-7.7) H 10/16/19 09:20 Band Neutrophils # 1.8 K/mm3 10/16/19 09:20 Lymphocytes # (Manual) 0.6 K/mm3 (1.2-5.4) L 10/16/19 09:20 Abs React Lymphs (Man) 0.0 K/mm3 10/16/19 09:20 Monocytes # (Manual) 0.3 K/mm3 (0.0-0.8) 10/16/19 09:20 Eosinophils # (Manual) 0.0 K/mm3 (0.0-0.4) 10/16/19 09:20 Basophils # (Manual) 0.0 K/mm3 (0.0-0.1) 10/16/19 09:20 Metamyelocytes # 0.3 K/mm3 10/16/19 09:20 Myelocytes # 0.1 K/mm3 10/16/19 09:20 Promyelocytes # 0.0 K/mm3 10/16/19 09:20 Blast Cells # 0.0 K/mm3 10/16/19 09:20 WBC Morphology Not Reportable 10/16/19 09:20 Hypersegmented Neuts Not Reportable 10/16/19 09:20 Hyposegmented Neuts Not Reportable 10/16/19 09:20 Hypogranular Neuts Not Reportable 10/16/19 09:20 Smudge Cells Not Reportable 10/16/19 09:20 Toxic Granulation Not Reportable 10/16/19 09:20 Toxic Vacuolation Not Reportable 10/16/19 09:20 Dohle Bodies Not Reportable 10/16/19 09:20 Pelger-Huet Anomaly Not Reportable 10/16/19 09:20 Andres Rods Not Reportable 10/16/19 09:20 Platelet Estimate Consistent w auto 10/16/19 09:20 Clumped Platelets Not Reportable 10/16/19 09:20 Plt Clumps, EDTA Not Reportable 10/16/19 09:20 Large Platelets Not Reportable 10/16/19 09:20 Giant Platelets Not Reportable 10/16/19 09:20 Platelet Satelliting Not Reportable 10/16/19 09:20 Plt Morphology Comment Not Reportable 10/16/19 09:20 RBC Morphology Not Reportable 10/16/19 09:20 Dimorphic RBCs Not Reportable 10/16/19 09:20 Polychromasia Few 10/16/19 09:20 Hypochromasia Few 10/16/19 09:20 Poikilocytosis Not Reportable 10/16/19 09:20 Anisocytosis Not Reportable 10/16/19 09:20 Microcytosis Not Reportable 10/16/19 09:20 Macrocytosis Not Reportable 10/16/19 09:20 Spherocytes Not Reportable 10/16/19 09:20 Pappenheimer Bodies Not Reportable 10/16/19 09:20 Sickle Cells Not Reportable 10/16/19 09:20 Target Cells Few 10/16/19 09:20 Tear Drop Cells Not Reportable 10/16/19 09:20 Ovalocytes Not Reportable 10/16/19 09:20 Helmet Cells Not Reportable 10/16/19 09:20 Varghese-[place] Bodies Not Reportable 10/16/19 09:20 [place] Rings Not Reportable 10/16/19 09:20 Bishnu Cells Not Reportable 10/16/19 09:20 Bite Cells Not Reportable 10/16/19 09:20 Crenated Cell Not Reportable 10/16/19 09:20 Elliptocytes Not Reportable 10/16/19 09:20 Acanthocytes (Spur) Not Reportable 10/16/19 09:20 Rouleaux Not Reportable 10/16/19 09:20 Hemoglobin C Crystals Not Reportable 10/16/19 09:20 Schistocytes Not Reportable 10/16/19 09:20 Malaria parasites Not Reportable 10/16/19 09:20 Toni Bodies Not Reportable 10/16/19 09:20 Hem Pathologist Commnt No 10/16/19 09:20 POC ABG pH 7.422 (7.35-7.45) 11/03/19 04:28 ABG pH 7.390 pH Units (7.350-7.450) 10/23/19 04:47 POC ABG pCO2 45.4 (35-45) H 11/03/19 04:28 ABG pCO2 48.4 mm Hg 10/23/19 04:47 POC ABG pO2 83 (80-105) 11/03/19 04:28 ABG pO2 68.9 mm Hg (80.0-90.0) L 10/23/19 04:47 POC ABG HCO3 29.6 (22-26 mml/L) 11/03/19 04:28 ABG HCO3 28.7 mmol/L (20.0-26.0) H 10/23/19 04:47 POC ABG Total CO2 31 (23-27mmol/L) 11/03/19 04:28 POC ABG O2 Sat 96 11/03/19 04:28 ABG O2 Saturation 96.6 % (95.0-99.0) 10/23/19 04:47 ABG O2 Content 8.8 (0.0-44) 10/23/19 04:47 POC ABG Base Excess 5 ((-2) - (+3)mmol/L) 11/03/19 04:28 ABG Base Excess 3.4 mmol/L (-2.0-3.0) H 10/23/19 04:47 ABG Hemoglobin 6.6 gm/dl (14.0-18.0) L 10/23/19 04:47 ABG Carboxyhemoglobin 2.1 % (0.0-5.0) 10/23/19 04:47 ABG Methemoglobin 0.5 % (0.0-1.5) 10/23/19 04:47 Oxyhemoglobin 94.1 % (95.0-99.0) L 10/23/19 04:47 FiO2 40 % 11/03/19 04:28 Sodium 136 mmol/L (137-145) L 11/28/19 05:30 Potassium 3.1 mmol/L (3.6-5.0) L 11/28/19 05:30 Chloride 96.3 mmol/L (98-107) L 11/28/19 05:30 Carbon Dioxide 24 mmol/L (22-30) 11/28/19 05:30 Anion Gap 19 mmol/L 11/28/19 05:30 BUN 6 mg/dL (9-20) L 11/28/19 05:30 Creatinine 0.5 mg/dL (0.8-1.5) L 11/28/19 05:30 Estimated GFR > 60 ml/min 11/28/19 05:30 BUN/Creatinine Ratio 12 % 11/28/19 05:30 Glucose 89 mg/dL (75-100) 11/28/19 05:30 POC Glucose 108 (70-105) H 11/28/19 17:05 Hemoglobin A1c 5.7 % (4-6) 10/06/19 05:36 Lactic Acid 1.10 mmol/L (0.7-2.0) 10/13/19 04:20 Calcium 8.4 mg/dL (8.4-10.2) 11/28/19 05:30 Ionized Calcium 5.2 mg/dL (4.8-5.6) 10/18/19 07:41 Phosphorus 2.70 mg/dL (2.5-4.5) 11/02/19 12:43 Magnesium 1.60 mg/dL (1.7-2.3) L 11/28/19 05:30 Total Bilirubin 0.30 mg/dL (0.1-1.2) 11/28/19 05:30 Direct Bilirubin 0.7 mg/dL (0-0.2) H 10/23/19 10:44 Indirect Bilirubin 0.1 mg/dL 10/23/19 10:44 AST 11 units/L (5-40) 11/28/19 05:30 ALT 9 units/L (7-56) 11/28/19 05:30 Alkaline Phosphatase 123 units/L (35-129) 11/28/19 05:30 Ammonia 49.0 umol/L (25-60) 10/13/19 04:20 Troponin T < 0.010 ng/mL (0.00-0.029) 10/09/19 17:23 C-Reactive Protein 30.60 mg/dL (0.00-1.30) H 10/15/19 04:32 Serum Total Protein 5.2 g/dL (6.1-8.1) L 10/11/19 09:00 Total Protein 6.2 g/dL (6.3-8.2) L 11/28/19 05:30 Albumin 2.2 g/dL (3.9-5) L 11/28/19 05:30 Albumin/Globulin Ratio 0.6 % 11/28/19 05:30 Prealbumin 0.030 g/L (0.200-0.400) L 10/15/19 04:32 [id number] See scanned result 10/11/19 Unknown [id number] See scanned result 10/11/19 Unknown Beta Globulins See scanned result 10/11/19 Unknown Gamma Globulins See scanned result 10/11/19 Unknown Abnorm Protein Band 1 see below 10/11/19 09:00 PEP Interpretation See scanned result 10/11/19 Unknown Triglycerides 185 mg/dL (2-149) H 10/26/19 06:15 Urine Color Yellow (Yellow) 10/26/19 Unknown Urine Turbidity Clear (Clear) 10/26/19 Unknown Urine pH 9.0 (5.0-7.0) H 10/26/19 Unknown Ur Specific [place] 1.011 (1.003-1.030) 10/26/19 Unknown Urine Protein 30 mg/dl mg/dL (Negative) 10/26/19 Unknown Urine Glucose (UA) Neg mg/dL (Negative) 10/26/19 Unknown Urine Ketones Neg mg/dL (Negative) 10/26/19 Unknown Urine Blood Neg (Negative) 10/26/19 Unknown Urine Nitrite Neg (Negative) 10/26/19 Unknown Urine Bilirubin Neg (Negative) 10/26/19 Unknown Urine Urobilinogen < 2.0 mg/dL (<2.0) 10/26/19 Unknown Ur Leukocyte Esterase Neg (Negative) 10/26/19 Unknown Urine WBC (Auto) 1.0 /HPF (0.0-6.0) 10/26/19 Unknown Urine RBC (Auto) 1.0 /HPF (0.0-6.0) 10/26/19 Unknown Urine Bacteria (Auto) 1+ /HPF (Negative) 10/11/19 06:23 Urine Mucus Few /HPF 10/26/19 Unknown Urine Eosinophils None seen (None Seen) 10/11/19 06:23 Ur Random Creatinine See scanned result 10/11/19 Unknown U Random Total Protein See scanned result 10/11/19 Unknown Urine Creatinine 116.8 mg/dL (0.1-20.0) H 10/11/19 06:23 Urine Creatinine 118.2 mg/dL (0.1-20.0) H 10/11/19 06:23 Protein/Creatinin Ratio See scanned result 10/11/19 Unknown Urine Sodium 14 mmol/L 10/11/19 06:23 Urine Total Protein 104 mg/dL (5-11.8) H 10/11/19 06:23 Urine Total Protein 105 mg/dL (5-11.8) H 10/11/19 06:23 U Abnormal Prot Band 1 See scanned result 10/11/19 Unknown U Abnormal Prot Band 2 See scanned result 10/11/19 Unknown U Abnormal Prot Band 3 See scanned result 10/11/19 Unknown Vancomycin Trough 5.7 ug/mL (5.0-20.0) 11/05/19 09:00 Random Vancomycin 9.6 ug/mL (0-40.0) 11/03/19 03:42 Digoxin 0.7 ng/mL (0.9-2.0) L 10/19/19 04:21 Blood Type A POSITIVE 11/21/19 13:32 Antibody Screen Negative 11/21/19 13:32 Crossmatch See Detail 11/21/19 13:32 Active Medications - Current Medications Current Medications: Generic Name Dose Route Start Last Admin Trade Name Freq PRN Reason Stop Dose Admin Acetaminophen 650 mg 11/24/19 12:28 11/26/19 11:50 Tylenol PO 650 mg Q6H PRN Administration Pain, Mild (1-3) Acetaminophen/Hydrocodone Bitart 1 each 11/24/19 12:27 11/28/19 15:57 [place] 10/325 PO 1 each Q6H PRN Administration Pain, Moderate (4-6) Albuterol/Ipratropium 1 ampul 11/23/19 08:00 11/28/19 14:53 Duoneb *Not For Prn Use* IH Not Given TIDRT VERÓNICA Amiodarone HCl 200 mg 10/23/19 13:00 11/28/19 08:59 Cordarone PO 200 mg QDAY VERÓNICA Administration Arformoterol Tartrate 15 mcg 10/06/19 08:30 11/28/19 09:41 Brovana Nebu IH 15 mcg Q12HRT VERÓNICA Administration Budesonide 0.5 mg 10/07/19 12:20 11/28/19 09:40 Pulmicort IH 0.5 mg Q12HRT VERÓNICA Administration Citalopram Hydrobromide 20 mg 10/27/19 12:00 11/28/19 08:59 Celexa PO 20 mg DAILY VERÓNICA Administration Diphenhydramine HCl 25 mg 11/17/19 20:15 11/17/19 20:58 Benadryl PO 25 mg Q6H PRN Administration Itching Enoxaparin Sodium 40 mg 11/05/19 22:00 11/27/19 22:16 Enoxaparin SUB-Q 40 mg QDAY@2200 [facility] Administration Haloperidol Lactate 5 mg 10/25/19 18:22 11/12/19 03:33 Haldol IV 5 mg Q6H PRN Administration Agitation Hydralazine HCl 10 mg 10/28/19 14:09 11/02/19 15:34 Apresoline IV 10 mg Q4HR PRN Administration Hypertension Hydromorphone HCl 1 mg 11/24/19 12:28 11/26/19 01:09 Dilaudid IV 1 mg Q4H PRN Administration Pain , Severe (7-10) Insulin Human Lispro 0 unit 10/14/19 12:00 11/28/19 17:18 Humalog SUB-Q Not Given Q6HR [facility] Protocol Metoprolol Tartrate 2.5 mg 10/15/19 15:34 11/01/19 18:00 Metoprolol IV 2.5 mg Q4HR PRN Administration HR >130 Metoprolol Tartrate 12.5 mg 11/21/19 16:00 11/28/19 17:17 Metoprolol PO Not Given Q8HR [facility] Multi-Ingred Cream/Lotion/Oil/Oint 1 applic 10/14/19 02:19 Artificial Tears Ophth Oint OU Q4HR PRN Dry Eye(s) Pantoprazole Sodium 40 mg 11/20/19 10:00 11/28/19 08:59 Protonix PO 40 mg DAILY [facility] Administration Sodium Chloride 10 ml 11/07/19 19:32 11/25/19 22:03 Sodium Chloride Flush Syringe 10 Ml IV 10 ml PRN PRN Administration LINE FLUSH Zolpidem Tartrate 5 mg 11/10/19 21:00 11/11/19 03:30 Ambien FEEDTUBE 5 mg QHS PRN Administration Sleep Nutrition/Malnutrition Assess - Dietary Evaluation Nutrition/Malnutrition Findings: Nutrition Notes Start: 10/08/19 11:36 Freq: Status: Active Protocol: Document 11/22/19 12:23 JENN (Rec: 11/22/19 12:35 JENN [id number]) Co-Sign 11/22/19 12:23 LP Nutrition Notes Initial or Follow up Reassessment Current Diagnosis Acute Kidney Injury,COPD, Hypertension Other Pertinent Diagnosis intra-abdominal infection, disruption of bowel anastomosis, LE edema Current Diet Regular Labs/Tests Cr 0.5 Pertinent Medications Dilaudid Height 6 ft Weight 107.2 kg [place] Body Weight (kg) 80.90 BMI 32.0 Weight change and time frame Wt change noted. Pt was was from recent bedscale. Possibly inaccurate wt Weight Status Morbidly Obese Subjective/Other Information F/U for PO intakes. Pt stated his appetite was good. Pt ate about 75% of breakfast. Pt stated that he got outside food for all meals yesterday. Percent of energy/protein needs met: unable to determine Burn Absent Trauma Absent GI Symptoms None Current % PO Good (75-100%) Minimum of two criteria No Fluid Accumulation Mild (non-severe) #1 Nutrition Diagnosis Increased nutrient needs ( specify in comment below) Diagnosis Progress(for reassessment Continues documentation) Is patient on ventilator? No Is Patient Ambulatory and/or Out of Bed No REE-([facility] [place]-confined to bed) 2332.092 Kcal/Kg value to use for calculation 19 Approximate Energy Requirements Using 2037 kcal/Kg Calculation Used for Recommendations Kcal/kg Additional Notes Protein: 136-169g (1.2-1.5g/kg ) AdjBW 113kg Fluid 1 ml/kcal or per MD Nutrition Intervention Change Diet Order: Continue regular Goal #1 Meet at least 80% of energy and protein needs via PO intakes Anticipated Discharge Needs: Regular diet Follow-Up By: 11/29/19 Additional Comments F/U for PO intakes
[2019-11-28] MEDS: ENOXAPARIN 40 MG/0.4 ML INJ SUB-Q SCH (21:22)
[2019-11-29] MEDS: INSULIN LISPRO 100 UNIT/ML SUB-Q SCH ×4 (00:20→17:47)
[2019-11-29] MEDS: METOPROLOL TARTRATE 50 MG TAB PO SCH ×3 (06:32→22:05)
[2019-11-29] MEDS: PANTOPRAZOLE 40 MG TAB PO SCH (09:35)
[2019-11-29] MEDS: AMIODARONE 200 MG TAB PO SCH (09:35)
[2019-11-29] MEDS: CITALOPRAM 20 MG TAB PO SCH (09:35)
[2019-11-29] MEDS: IPRATROPIUM/ALBUTEROL SULFATE 3 ML AMPUL.NEB IH SCH ×3 (09:48→21:04)
[2019-11-29] MEDS: BUDESONIDE 0.5 MG/2 ML NEBU IH SCH ×2 (09:48→21:04)
[2019-11-29] MEDS: ARFORMOTEROL 15 MCG/2 ML NEBU IH SCH ×2 (09:49→21:04)
[2019-11-29] MEDS: HYDROcodone/ACETAMINOPHEN 10-325MG TAB PO PRN ×2 (14:19→19:46)
--- NOTE | 2019-11-29 17:17 | Event Note ---
Date: 11/29/19 Pt reporting increased pain in LLQ. VSS. Clinically looks ok. Will check CT as a precaution for any changes as patient may be heading to rehab soon.
--- NOTE | 2019-11-29 19:02 | Progress Note ---
Assessment and Plan Assessment and plan: Acute blood loss anemia s/p PRBCs. H&H currently stable. Sepsis, improved. Completed Abx per ID. Dehiscence of closure of fascia s/p ex lap with closure of abdominal wall and wound vac placement 10/05 ; s/p Re-exploration, washout, transection of colon, Abthera placement -10/13; s/p abd washout, partial omentectomy, partial colectomy with colostomy - 10/16. s/p abd washout, feeding tube placement, AbThera placement - 10/19; Abdominal washout and closure - 10/22. Acute Respiratory failure with hypoxia -Extubated 10/25/19 -Re-intubated 10/30 -Patient self extubated morning of 11/04, now on Oxygen by NC -Multifactorial secondary to pneumonia, pneumothorax and COPD Left pneumothorax s/p chest tube placed 10/30 Resolved. Left lower lobe pneumonia -CTA chest showed left lower lobe consolidation with pleural effusion COPD -Stable -cont neb tx GUILLERMO on CKD -due to ATN due to sepsis -Resolved. -No hydronephrosis on CT Acute Toxic Metabolic Encephalopathy/Delirium Tremens. Resolved. -Continue CIWA protocol due to hx of ETOH abuse, 6packs a day -Head CT scan negative for acute findings SVT, Atrial fib/flutter with RVR -treated with adenosine x1 -off amiodarone and cardizem drip. On oral amiodarone -HR currently controlled -Cardiology following Hx of Hypertension -Stable Hyperlipidemia -stable Atypical chest pain -probably secondary to pneumonitis -troponin levels neg Hx of IA/CAD -s/p PCI of the circumflex and second vessel POBA of the distal LAD occlusion. Left ventricle fraction of 45-50%. Moderate Protein calorie malnutrition -Nutrition following Tobacco abuse -Cessation recommended Morbid obesity with BMI of 43.4 -Lifestyle modification recommended DVT and GI ppx: Lovenox/PPI Disposition. Patient is stable, awaiting acute rehabilitation placement History Interval history: Patient seen and examined medical records reviewed No new complaints, awaiting acute rehabilitation placement Physical therapy evaluating Patient wants to go home Hospitalist Physical - Constitutional Vitals: Temp Pulse Resp BP Pulse Ox 98.1 F 88 18 121/56 93 11/29/19 16:25 11/29/19 16:25 11/29/19 16:25 11/29/19 16:25 11/29/19 16:25 General appearance: Present: no acute distress, well-nourished, obese - EENT Eyes: Present: PERRL, EOM intact - Neck Neck: Present: supple, normal ROM - Respiratory Respiratory effort: normal Respiratory: bilateral: diminished, rales, negative: rhonchi, wheezing - Cardiovascular Rhythm: regular Heart Sounds: Present: S1 & S2 - Extremities Extremities: no ischemia, pulses intact - Abdominal General gastrointestinal: soft, non-tender, non-distended, normal bowel sounds, other (drains in place and functional) - Integumentary Integumentary: Present: clear, warm - Psychiatric Psychiatric: appropriate mood/affect, cooperative - Neurologic Neurologic: CNII-XII intact, moves all extremities KEATON score - Keaton Score Age > 65: (0) No Aspirin use within the Past 7 Days: (0) No 3 or more CAD Risk Factors: (1) Yes 2 or more Angina events in past 24 hrs: (1) Yes Known CAD with more than 50% Stenosis: (0) No Elevated Cardiac Markers: (0) No ST Deviation Greater than 0.5mm: (1) Yes KEATON Score: 3 Results - Labs CBC & Chem 7: 11/28/19 05:30 11/28/19 05:30 Labs: Laboratory Last Values WBC 15.1 K/mm3 (4.5-11.0) H 11/28/19 05:30 RBC 2.97 M/mm3 (3.65-5.03) L 11/28/19 05:30 Hgb 8.0 gm/dl (11.8-15.2) L 11/28/19 05:30 Hct 24.4 % (35.5-45.6) L 11/28/19 05:30 MCV 82 fl (84-94) L 11/28/19 05:30 MCH 27 pg (28-32) L 11/28/19 05:30 MCHC 33 % (32-34) 11/28/19 05:30 RDW 17.0 % (13.2-15.2) H 11/28/19 05:30 Plt Count 422 K/mm3 (140-440) 11/28/19 05:30 Lymph % (Auto) 9.9 % (13.4-35.0) L 11/28/19 05:30 [place] % (Auto) 6.4 % (0.0-7.3) 11/28/19 05:30 Eos % (Auto) 0.4 % (0.0-4.3) 11/28/19 05:30 Baso % (Auto) 0.6 % (0.0-1.8) 11/28/19 05:30 Lymph # 1.5 K/mm3 (1.2-5.4) 11/28/19 05:30 [place] # 1.0 K/mm3 (0.0-0.8) H 11/28/19 05:30 Eos # 0.1 K/mm3 (0.0-0.4) 11/28/19 05:30 Baso # 0.1 K/mm3 (0.0-0.1) 11/28/19 05:30 Add Manual Diff Complete 10/16/19 09:20 Total Counted 100 10/16/19 09:20 Seg Neutrophils % 82.7 % (40.0-70.0) H 11/28/19 05:30 Seg Neuts % (Manual) 79.0 % (40.0-70.0) H 10/16/19 09:20 Band Neutrophils % 12.0 % 10/16/19 09:20 Lymphocytes % (Manual) 4.0 % (13.4-35.0) L 10/16/19 09:20 Reactive Lymphs % (Man) 0 % 10/16/19 09:20 Monocytes % (Manual) 2.0 % (0.0-7.3) 10/16/19 09:20 Eosinophils % (Manual) 0 % (0.0-4.3) 10/16/19 09:20 Basophils % (Manual) 0 % (0.0-1.8) 10/16/19 09:20 Metamyelocytes % 2.0 % 10/16/19 09:20 Myelocytes % 1.0 % 10/16/19 09:20 Promyelocytes % 0 % 10/16/19 09:20 Blast Cells % 0 % 10/16/19 09:20 Nucleated RBC % Not Reportable 10/16/19 09:20 Seg Neutrophils # 12.5 K/mm3 (1.8-7.7) H 11/28/19 05:30 Seg Neutrophils # Man 11.5 K/mm3 (1.8-7.7) H 10/16/19 09:20 Band Neutrophils # 1.8 K/mm3 10/16/19 09:20 Lymphocytes # (Manual) 0.6 K/mm3 (1.2-5.4) L 10/16/19 09:20 Abs React Lymphs (Man) 0.0 K/mm3 10/16/19 09:20 Monocytes # (Manual) 0.3 K/mm3 (0.0-0.8) 10/16/19 09:20 Eosinophils # (Manual) 0.0 K/mm3 (0.0-0.4) 10/16/19 09:20 Basophils # (Manual) 0.0 K/mm3 (0.0-0.1) 10/16/19 09:20 Metamyelocytes # 0.3 K/mm3 10/16/19 09:20 Myelocytes # 0.1 K/mm3 10/16/19 09:20 Promyelocytes # 0.0 K/mm3 10/16/19 09:20 Blast Cells # 0.0 K/mm3 10/16/19 09:20 WBC Morphology Not Reportable 10/16/19 09:20 Hypersegmented Neuts Not Reportable 10/16/19 09:20 Hyposegmented Neuts Not Reportable 10/16/19 09:20 Hypogranular Neuts Not Reportable 10/16/19 09:20 Smudge Cells Not Reportable 10/16/19 09:20 Toxic Granulation Not Reportable 10/16/19 09:20 Toxic Vacuolation Not Reportable 10/16/19 09:20 Dohle Bodies Not Reportable 10/16/19 09:20 Pelger-Huet Anomaly Not Reportable 10/16/19 09:20 Andres Rods Not Reportable 10/16/19 09:20 Platelet Estimate Consistent w auto 10/16/19 09:20 Clumped Platelets Not Reportable 10/16/19 09:20 Plt Clumps, EDTA Not Reportable 10/16/19 09:20 Large Platelets Not Reportable 10/16/19 09:20 Giant Platelets Not Reportable 10/16/19 09:20 Platelet Satelliting Not Reportable 10/16/19 09:20 Plt Morphology Comment Not Reportable 10/16/19 09:20 RBC Morphology Not Reportable 10/16/19 09:20 Dimorphic RBCs Not Reportable 10/16/19 09:20 Polychromasia Few 10/16/19 09:20 Hypochromasia Few 10/16/19 09:20 Poikilocytosis Not Reportable 10/16/19 09:20 Anisocytosis Not Reportable 10/16/19 09:20 Microcytosis Not Reportable 10/16/19 09:20 Macrocytosis Not Reportable 10/16/19 09:20 Spherocytes Not Reportable 10/16/19 09:20 Pappenheimer Bodies Not Reportable 10/16/19 09:20 Sickle Cells Not Reportable 10/16/19 09:20 Target Cells Few 10/16/19 09:20 Tear Drop Cells Not Reportable 10/16/19 09:20 Ovalocytes Not Reportable 10/16/19 09:20 Helmet Cells Not Reportable 10/16/19 09:20 [place] Bodies Not Reportable 10/16/19 09:20 [place] Rings Not Reportable 10/16/19 09:20 [place] Cells Not Reportable 10/16/19 09:20 Bite Cells Not Reportable 10/16/19 09:20 Crenated Cell Not Reportable 10/16/19 09:20 Elliptocytes Not Reportable 10/16/19 09:20 Acanthocytes (Spur) Not Reportable 10/16/19 09:20 Rouleaux Not Reportable 10/16/19 09:20 Hemoglobin C Crystals Not Reportable 10/16/19 09:20 Schistocytes Not Reportable 10/16/19 09:20 Malaria parasites Not Reportable 10/16/19 09:20 Toni Bodies Not Reportable 10/16/19 09:20 Hem Pathologist Commnt No 10/16/19 09:20 POC ABG pH 7.422 (7.35-7.45) 11/03/19 04:28 ABG pH 7.390 pH Units (7.350-7.450) 10/23/19 04:47 POC ABG pCO2 45.4 (35-45) H 11/03/19 04:28 ABG pCO2 48.4 mm Hg 10/23/19 04:47 POC ABG pO2 83 (80-105) 11/03/19 04:28 ABG pO2 68.9 mm Hg (80.0-90.0) L 10/23/19 04:47 POC ABG HCO3 29.6 (22-26 mml/L) 11/03/19 04:28 ABG HCO3 28.7 mmol/L (20.0-26.0) H 10/23/19 04:47 POC ABG Total CO2 31 (23-27mmol/L) 11/03/19 04:28 POC ABG O2 Sat 96 11/03/19 04:28 ABG O2 Saturation 96.6 % (95.0-99.0) 10/23/19 04:47 ABG O2 Content 8.8 (0.0-44) 10/23/19 04:47 POC ABG Base Excess 5 ((-2) - (+3)mmol/L) 11/03/19 04:28 ABG Base Excess 3.4 mmol/L (-2.0-3.0) H 10/23/19 04:47 ABG Hemoglobin 6.6 gm/dl (14.0-18.0) L 10/23/19 04:47 ABG Carboxyhemoglobin 2.1 % (0.0-5.0) 10/23/19 04:47 ABG Methemoglobin 0.5 % (0.0-1.5) 10/23/19 04:47 Oxyhemoglobin 94.1 % (95.0-99.0) L 10/23/19 04:47 FiO2 40 % 11/03/19 04:28 Sodium 136 mmol/L (137-145) L 11/28/19 05:30 Potassium 3.1 mmol/L (3.6-5.0) L 11/28/19 05:30 Chloride 96.3 mmol/L (98-107) L 11/28/19 05:30 Carbon Dioxide 24 mmol/L (22-30) 11/28/19 05:30 Anion Gap 19 mmol/L 11/28/19 05:30 BUN 6 mg/dL (9-20) L 11/28/19 05:30 Creatinine 0.5 mg/dL (0.8-1.5) L 11/28/19 05:30 Estimated GFR > 60 ml/min 11/28/19 05:30 BUN/Creatinine Ratio 12 % 11/28/19 05:30 Glucose 89 mg/dL (75-100) 11/28/19 05:30 POC Glucose 94 (70-105) 11/29/19 16:34 Hemoglobin A1c 5.7 % (4-6) 10/06/19 05:36 Lactic Acid 1.10 mmol/L (0.7-2.0) 10/13/19 04:20 Calcium 8.4 mg/dL (8.4-10.2) 11/28/19 05:30 Ionized Calcium 5.2 mg/dL (4.8-5.6) 10/18/19 07:41 Phosphorus 2.70 mg/dL (2.5-4.5) 11/02/19 12:43 Magnesium 1.60 mg/dL (1.7-2.3) L 11/28/19 05:30 Total Bilirubin 0.30 mg/dL (0.1-1.2) 11/28/19 05:30 Direct Bilirubin 0.7 mg/dL (0-0.2) H 10/23/19 10:44 Indirect Bilirubin 0.1 mg/dL 10/23/19 10:44 AST 11 units/L (5-40) 11/28/19 05:30 ALT 9 units/L (7-56) 11/28/19 05:30 Alkaline Phosphatase 123 units/L (35-129) 11/28/19 05:30 Ammonia 49.0 umol/L (25-60) 10/13/19 04:20 Troponin T < 0.010 ng/mL (0.00-0.029) 10/09/19 17:23 C-Reactive Protein 30.60 mg/dL (0.00-1.30) H 10/15/19 04:32 Serum Total Protein 5.2 g/dL (6.1-8.1) L 10/11/19 09:00 Total Protein 6.2 g/dL (6.3-8.2) L 11/28/19 05:30 Albumin 2.2 g/dL (3.9-5) L 11/28/19 05:30 Albumin/Globulin Ratio 0.6 % 11/28/19 05:30 Prealbumin 0.030 g/L (0.200-0.400) L 10/15/19 04:32 [id number] See scanned result 10/11/19 Unknown [id number] See scanned result 10/11/19 Unknown Beta Globulins See scanned result 10/11/19 Unknown Gamma Globulins See scanned result 10/11/19 Unknown Abnorm Protein Band 1 see below 10/11/19 09:00 PEP Interpretation See scanned result 10/11/19 Unknown Triglycerides 185 mg/dL (2-149) H 10/26/19 06:15 Urine Color Yellow (Yellow) 10/26/19 Unknown Urine Turbidity Clear (Clear) 10/26/19 Unknown Urine pH 9.0 (5.0-7.0) H 10/26/19 Unknown Ur Specific [place] 1.011 (1.003-1.030) 10/26/19 Unknown Urine Protein 30 mg/dl mg/dL (Negative) 10/26/19 Unknown Urine Glucose (UA) Neg mg/dL (Negative) 10/26/19 Unknown Urine Ketones Neg mg/dL (Negative) 10/26/19 Unknown Urine Blood Neg (Negative) 10/26/19 Unknown Urine Nitrite Neg (Negative) 10/26/19 Unknown Urine Bilirubin Neg (Negative) 10/26/19 Unknown Urine Urobilinogen < 2.0 mg/dL (<2.0) 10/26/19 Unknown Ur Leukocyte Esterase Neg (Negative) 10/26/19 Unknown Urine WBC (Auto) 1.0 /HPF (0.0-6.0) 10/26/19 Unknown Urine RBC (Auto) 1.0 /HPF (0.0-6.0) 10/26/19 Unknown Urine Bacteria (Auto) 1+ /HPF (Negative) 10/11/19 06:23 Urine Mucus Few /HPF 10/26/19 Unknown Urine Eosinophils None seen (None Seen) 10/11/19 06:23 Ur Random Creatinine See scanned result 10/11/19 Unknown U Random Total Protein See scanned result 10/11/19 Unknown Urine Creatinine 116.8 mg/dL (0.1-20.0) H 10/11/19 06:23 Urine Creatinine 118.2 mg/dL (0.1-20.0) H 10/11/19 06:23 Protein/Creatinin Ratio See scanned result 10/11/19 Unknown Urine Sodium 14 mmol/L 10/11/19 06:23 Urine Total Protein 104 mg/dL (5-11.8) H 10/11/19 06:23 Urine Total Protein 105 mg/dL (5-11.8) H 10/11/19 06:23 U Abnormal Prot Band 1 See scanned result 10/11/19 Unknown U Abnormal Prot Band 2 See scanned result 10/11/19 Unknown U Abnormal Prot Band 3 See scanned result 10/11/19 Unknown Vancomycin Trough 5.7 ug/mL (5.0-20.0) 11/05/19 09:00 Random Vancomycin 9.6 ug/mL (0-40.0) 11/03/19 03:42 Digoxin 0.7 ng/mL (0.9-2.0) L 10/19/19 04:21 Blood Type A POSITIVE 11/21/19 13:32 Antibody Screen Negative 11/21/19 13:32 Crossmatch See Detail 11/21/19 13:32 Active Medications - Current Medications Current Medications: Generic Name Dose Route Start Last Admin Trade Name Freq PRN Reason Stop Dose Admin Acetaminophen 650 mg 11/24/19 12:28 11/26/19 11:50 Tylenol PO 650 mg Q6H PRN Administration Pain, Mild (1-3) Acetaminophen/Hydrocodone Bitart 1 each 11/24/19 12:27 11/29/19 14:19 [place] 10/325 PO 1 each Q6H PRN Administration Pain, Moderate (4-6) Albuterol/Ipratropium 1 ampul 11/23/19 08:00 11/29/19 13:48 Duoneb *Not For Prn Use* IH Not Given TIDRT VERÓNICA Amiodarone HCl 200 mg 10/23/19 13:00 11/29/19 09:35 Cordarone PO 200 mg QDAY VERÓNICA Administration Arformoterol Tartrate 15 mcg 10/06/19 08:30 11/29/19 09:49 Brovana Nebu IH 15 mcg Q12HRT VERÓNICA Administration Budesonide 0.5 mg 10/07/19 12:20 11/29/19 09:48 Pulmicort IH 0.5 mg Q12HRT VERÓNICA Administration Citalopram Hydrobromide 20 mg 10/27/19 12:00 11/29/19 09:35 Celexa PO 20 mg DAILY VERÓNICA Administration Diphenhydramine HCl 25 mg 11/17/19 20:15 11/17/19 20:58 Benadryl PO 25 mg Q6H PRN Administration Itching Enoxaparin Sodium 40 mg 11/05/19 22:00 11/28/19 21:22 Enoxaparin SUB-Q 40 mg QDAY@2200 VERÓNICA Administration Haloperidol Lactate 5 mg 10/25/19 18:22 11/12/19 03:33 Haldol IV 5 mg Q6H PRN Administration Agitation Hydralazine HCl 10 mg 10/28/19 14:09 11/02/19 15:34 Apresoline IV 10 mg Q4HR PRN Administration Hypertension Hydromorphone HCl 1 mg 11/24/19 12:28 11/26/19 01:09 Dilaudid IV 1 mg Q4H PRN Administration Pain , Severe (7-10) Insulin Human Lispro 0 unit 10/14/19 12:00 11/29/19 17:47 Humalog SUB-Q Not Given Q6HR [facility] Protocol Metoprolol Tartrate 2.5 mg 10/15/19 15:34 11/01/19 18:00 Metoprolol IV 2.5 mg Q4HR PRN Administration HR >130 Metoprolol Tartrate 12.5 mg 11/21/19 16:00 11/29/19 14:18 Metoprolol PO 12.5 mg Q8HR VERÓNICA Administration Multi-Ingred Cream/Lotion/Oil/Oint 1 applic 10/14/19 02:19 Artificial Tears Ophth Oint OU Q4HR PRN Dry Eye(s) Pantoprazole Sodium 40 mg 11/20/19 10:00 11/29/19 09:35 Protonix PO 40 mg DAILY VERÓNICA Administration Sodium Chloride 10 ml 11/07/19 19:32 11/28/19 21:23 Sodium Chloride Flush Syringe 10 Ml IV 10 ml PRN PRN Administration LINE FLUSH Zolpidem Tartrate 5 mg 11/10/19 21:00 11/11/19 03:30 Ambien FEEDTUBE 5 mg QHS PRN Administration Sleep Nutrition/Malnutrition Assess - Dietary Evaluation Nutrition/Malnutrition Findings: Nutrition Notes Start: 10/08/19 11:36 Freq: Status: Active Protocol: Document 11/29/19 12:26 JENN (Rec: 11/29/19 12:47 JENN [id number]) Co-Sign 11/29/19 12:26 LP Nutrition Notes Initial or Follow up Reassessment Current Diagnosis Acute Kidney Injury,COPD, Hypertension Other Pertinent Diagnosis intra-abdominal infection, disruption of bowel anastomosis, LE edema Current Diet Regular Labs/Tests Na 136 K 3.1 BUN 6 Cr 0.5 Pertinent Medications Reviewed Height 6 ft Weight 103.2 kg [place] Body Weight (kg) 80.90 BMI 30.8 Weight change and time frame Wt change noted from current scale Weight Status Morbidly Obese Subjective/Other Information F/U for PO intakes. Pt stated his appetite has been good, but doesn't like the food and has outside food brought in. Pt ate about 75% of breakfast Percent of energy/protein needs met: unable to determine Burn Absent Trauma Absent GI Symptoms None Current % PO Good (75-100%) Minimum of two criteria No Fluid Accumulation Mild (non-severe) #1 Nutrition Diagnosis Increased nutrient needs ( specify in comment below) Diagnosis Progress(for reassessment Continues documentation) Is patient on ventilator? No Is Patient Ambulatory and/or Out of Bed No REE-([place]-confined to bed) 2284.140 Kcal/Kg value to use for calculation 19 Approximate Energy Requirements Using 1961 kcal/Kg Calculation Used for Recommendations Kcal/kg Additional Notes Protein: 136-169g (1.2-1.5g/kg ) AdjBW 113kg Fluid 1 ml/kcal or per MD Nutrition Intervention Change Diet Order: Continue regular Goal #1 Meet at least 80% of energy and protein needs via PO intakes Anticipated Discharge Needs: Regular diet Follow-Up By: 12/06/19 Additional Comments F/U for PO intakes
[2019-11-29] MEDS: ENOXAPARIN 40 MG/0.4 ML INJ SUB-Q SCH (22:06)
--- NOTE | 2019-11-29 22:14 | Cat Scan Report ---
CT abdomen pelvis w con INDICATION / CLINICAL INFORMATION: Increased LLQ pain. TECHNIQUE: Routine CT of the abdomen and pelvis with IV contrast All CT scans at this location are performed usi ng CT dose reduction for DAYDAY by means of automated exposure control. COMPARISON: 11/01/2019 FINDINGS: Abdomen and pelvis: The gas and fluid collection along the left lower quadrant abdomen has mildly inc reased in size in the interim now measuring about 12 x 3 cm, previously measuring approximately 6 x 2 cm. There is a large drain entering the mid abdomen near the umbilicus that is seen along this mixed air and fluid collection. There is a left lower quadrant ostomy. The liver, spleen, pancreas, adrenal glands and kidneys appear grossly unchanged. The gallbladder is fluid distended. No gallstones appreciated. Large ventral abdominal wall wound is noted. The appendix is unremarkable. No abdominal aortic aneurysm. No evidence of bowel obstruction. Review of the pelvis demonstrates some new subcutaneous gas and fluid just inferior to the tip of the coccyx Review of bone windows demonstrates thoracolumbar type degenerative changes. Degenerative changes are most significant at L4-L5 and L5-S1 bilaterally. Prominent disc osteophyte protrusions present at L4 -L5 and L5-S1. There is bilateral L4 pars defects. IMPRESSION: 1. Increasing size of the gas and fluid collection along the left anterior aspect of the abdomen when compared to 11/01/2019. A large indwelling drain is seen throughout the ill-defined gaseous/fluid co llection and some of this gas may be secondary to the aforementioned tube. Nevertheless underlying in fection/abscess is not excluded within this ill-defined collection. Focal bowel perforation is simila rly not excluded . 2. No evidence of high-grade small bowel obstruction. 3. Worrisome appearance of the subcutaneous soft tissues along the upper gluteal cleft just inferior to the tip of the coccyx which is worrisome for early sacral decubitus ulceration with prominent subc utaneous gas. Early abscess in this region cannot be excluded. Signer Name: Jus Paulson MD Signed: 11/29/2019 10:10 PM Workstation Name: [id number]
[2019-11-30] MEDS: METOPROLOL TARTRATE 50 MG TAB PO SCH ×3 (05:11→21:48)
[2019-11-30] MEDS: HYDROcodone/ACETAMINOPHEN 10-325MG TAB PO PRN ×3 (05:13→17:20)
[2019-11-30] MEDS: INSULIN LISPRO 100 UNIT/ML SUB-Q SCH ×4 (05:13→17:54)
[2019-11-30 08:05] LABS: Basophils % (Auto) 0.2 % (0.0-1.8); Eosinophils % (Auto) 0.2 % (0.0-4.3); Hematocrit 25.1 % (35.5-45.6); Hemoglobin 8.4 gm/dl (11.8-15.2); Lymphocytes # (Auto) 1.4 K/mm3 (1.2-5.4); Lymphocytes % (Auto) 9.3 % (13.4-35.0); Mean Corpuscular HGB Conc 33 % (32-34); Mean Corpuscular Volume 81 fl (84-94); Platelet Count 460 K/mm3 (140-440); Red Blood Count 3.11 M/mm3 (3.65-5.03); Red Cell Distribution Width 17.3 % (13.2-15.2)
[2019-11-30 08:38] LABS: Alanine Aminotransferase 9 units/L (7-56); Albumin 2.2 g/dL (3.9-5); BUN/Creatinine Ratio 14; Blood Urea Nitrogen 7 mg/dL (9-20); Calcium 8.7 mg/dL (8.4-10.2); Hemolysis Index 2
[2019-11-30] MEDS: IPRATROPIUM/ALBUTEROL SULFATE 3 ML AMPUL.NEB IH SCH ×3 (08:50→21:50)
[2019-11-30] MEDS: BUDESONIDE 0.5 MG/2 ML NEBU IH SCH ×2 (08:50→21:50)
[2019-11-30] MEDS: ARFORMOTEROL 15 MCG/2 ML NEBU IH SCH ×2 (08:50→21:50)
[2019-11-30] MEDS: AMIODARONE 200 MG TAB PO SCH (09:19)
[2019-11-30] MEDS: CITALOPRAM 20 MG TAB PO SCH (09:19)
[2019-11-30] MEDS: PANTOPRAZOLE 40 MG TAB PO SCH (09:19)
--- NOTE | 2019-11-30 12:58 | Progress Note ---
Assessment and Plan 54 y/o male with anastomic leak 12/03/19: Pulm status stable. Will see as needed. Agree, stable for transfer to acute rehab 11/12/19: Spoke with surgery this am. Currently pleased with progress. Reviewed IR note, and they plan to remove CT today. Continue IS. Will speak with CM about looking into rehabs directly from IMCU as oppose to transferring to the floor first. 11/06: Chest tube intact. No air leak. Will ask IR if catheter can be pulled out normally (i.e. not some form of tunneled catheter). If so will have them take it out later this week. If [facility] beds available, good candidate for there, likely not quite ready for floor yet. 11/04: Stable self extubation. Continue chest tube to suction. Will likely start waterseal tomorrow. Goad maybe to get CT out Tuesday. All other drains p er surgery. Encouraged use of IS regularly at the bedside and suctioning as needed per . 11/03: Looks clinically better. Na was better on repeat labs. Spoke with and surgery to update them both. Most likely will attempt extubation in the am. Will hold feeds for about an hour in the morning prior to extubation then restart. 11/02: Repeat labs this am. Hard time believing that 2 liters of normal saline made his sodium increase that much. Also, once i discuss with surgery, may consider giving more blood. Will also hold tube feeds briefly as well. In case any procedures. Lovenox held last night. Continue vent support 11/01: Spoke with Dr. Krause this am and understand his concerns. Have started the transfer process. Most ICU's throughout the city are on diversion or full. [place] has received his Facesheet and we are awaiting to hear back from them. CXR is clear. Minimal vent settings. Will continue supportive care for now. Follow up any new ID recs given increasing white and fever. 10/31: Will check CXR tomorrow. Continue chest tube to suction. Will likely stay in until extubated. Continue drains. Explained to staff to be extremely careful with these drains so that they do not come out. 10/30: Acute on chronic respiratory failure requiring reintubation. Appreciate Anesthesia assistance as he was a difficult intubation when we had to change his tube out about 1 week ago. Will continue on 100% until after Scans and then start to wean back down. CXR yesterday looked like pulmonary edema but improved today with positive pressure. Continue supportive care and await results of scans. 10/29: Discussed today on rounds. Patient had some issues over the weekend with the ICE chips and liquids. Will obtain speech consult/eval prior to restarting clears today. Spoke with nutrition and they will adjust tube feeds with new goal. Once at goal will start to taper off TPN. ordered Incentive madhu to bedside. Will also restart home dose of elaine today. pain control and drainage monitoring. Will continue ICU care. 10/26: Patient stable overall. Not ready for floor. Would be ok with step down if beds are needed. If spikes temp again will order blood cultures x2, urine culture, UA and repeat CXR. Gave an additional 40 of lasix this am. Will give more potassium replacement. Continue trickle feeds for now. Will continue PO meds and restart home dose of citalopram. Wean FiO2 and flow for sats >88%. Mildly hypertensive but this was secondary to agitation. Normalizing now. 10/25: Will extubate today. Will use HFNC if distress or hypoxemia is noted. Not a good candidate for bipap given his recent abdominal issues. Spoke with who is now at bedside and surgery. Will continue to attempt to achieve net negative state daily. Hold on further albumin administration. Hypernatremia is iatrogenic from lasix administration Worse case scenario, will re-intubate with anesthesia. 10/24: Responding well to lasix and protein therapy. Will give 2 more doses of lasix today. Consider one for tonight as well. Last albumin today at 1800. CXR is stable, still with layering bilateral pleural effusions. Will reassess again tomorrow. Reviewed all other sales support consultant notes. Spoke with sisters at bedside, updated and spoke with surgery. 10/23: Long discussion with surgery and via phone. Anasarca is likely from decreased oncotic pressure and immobility of several days now that abdomen is finally closed. Now fluid is essentially leaking into the interstitium now that the abdomen is shut and there is increased intra-abdominal pressure. Total Protein is 4.5 and albumin is 1.2. This is to be expected given current illness. Will attempt to increase oncotic pressure with 2 units of PRBC's and albumin infusions for the next 24 hours starting at midnight tonight. Will give lasix inbetween transfusions and then again tonight. CXR is consistent with pulmonary edema volume overload. Will continue vent for now and after significant volume removal then will attempt extubation. Discussed with and she understands. Will continue to monitor. Agree with trickle feeds and cards has switched amio over to PO to be given through the G-tube. If tolerates, hopeful to be rid of TPN soon as this is necessary but excessive volume as well. 10/22: Added diprovan as more sedation was needed. Hopefully once closed and no leaks, patient can be extubated. Cards very concerned about length of time for IV amio. Will discuss with surgery the time frame that gut can be used. 10/21: Will hold on weaning until abdomen is closed, especially knowing mental status is good. Will focus on pain control. Replace electrolytes. Appreciate Surgery recs and detail. Follow up any new recs from cards. Or tomorrow for closure Subjective Date of service: 11/30/19 Principal diagnosis: acute renal failure Interval history: No acute events. had some abdominal pain so surgery checking CT Objective Vital Signs - 12hr 11/30/19 11/30/19 11/30/19 04:16 08:34 09:59 Temperature 97.4 F L 98.3 F Pulse Rate 89 89 Respiratory 18 18 16 Rate Blood Pressure 113/58 110/45 O2 Sat by Pulse 92 93 97 Oximetry 11/30/19 11/30/19 11:04 11:52 Temperature 97.7 F Pulse Rate 90 Respiratory 16 20 Rate Blood Pressure 111/55 O2 Sat by Pulse 94 Oximetry Constitutional: no acute distress, alert, other (obese) Eyes: non-icteric ENT: oropharynx moist Neck: supple Effort: normal Ascultation: Bilateral: diminished breath sounds (bases) Cardiovascular: regular rate and rhythm (no mrg) Gastrointestinal: tender, other (obese, distended, ostomy in place; wound vac in place) Integumentary: normal Extremities: no cyanosis, pink and warm, edema (1+ bilateral LE edema) Neurologic: normal mental status, non-focal exam, pupils equal and round Psychiatric: mood appropriate, affect normal CBC and BMP: 11/30/19 07:08 11/30/19 07:08 ABG, PT/INR, D-dimer: ABG POC ABG pH 7.422 (7.35-7.45) 11/03/19 04:28 ABG pH 7.390 pH Units (7.350-7.450) 10/23/19 04:47 POC ABG pCO2 45.4 (35-45) H 11/03/19 04:28 ABG pCO2 48.4 mm Hg 10/23/19 04:47 POC ABG pO2 83 (80-105) 11/03/19 04:28 ABG pO2 68.9 mm Hg (80.0-90.0) L 10/23/19 04:47 POC ABG HCO3 29.6 (22-26 mml/L) 11/03/19 04:28 POC ABG Total CO2 31 (23-27mmol/L) 11/03/19 04:28 POC ABG O2 Sat 96 11/03/19 04:28 ABG O2 Saturation 96.6 % (95.0-99.0) 10/23/19 04:47 Abnormal lab findings: Abnormal Labs 10/06/19 10/06/19 10/07/19 05:36 05:36 05:54 WBC 21.8 H 21.5 H RBC 3.55 L Hgb 10.9 L Hct 32.7 L MCV MCH MCHC RDW Plt Count Lymph % (Auto) [place] % (Auto) Lymph # [place] # Seg Neutrophils % Seg Neuts % (Manual) 91.0 H Lymphocytes % (Manual) 2.0 L Seg Neutrophils # Seg Neutrophils # Man 19.8 H Lymphocytes # (Manual) 0.4 L Monocytes # (Manual) 1.1 H POC ABG pH ABG pH POC ABG pCO2 POC ABG pO2 ABG pO2 ABG HCO3 ABG Base Excess ABG Hemoglobin Oxyhemoglobin Sodium 135 L Potassium Chloride 95.9 L Carbon Dioxide BUN Creatinine 0.7 L Glucose POC Glucose Calcium Phosphorus Magnesium Direct Bilirubin AST Alkaline Phosphatase C-Reactive Protein Serum Total Protein Total Protein 5.7 L Albumin 2.5 L Prealbumin Rfeqo-8-Ncleglohz Ghhwo-5-Elohirspv Gamma Globulins PEP Interpretation Triglycerides Urine pH Urine Creatinine Urine Total Protein Vancomycin Trough Digoxin Crossmatch 10/07/19 10/09/19 10/09/19 05:54 10:52 10:52 WBC 16.6 H RBC Hgb Hct MCV MCH MCHC RDW Plt Count 498 H Lymph % (Auto) [place] % (Auto) Lymph # [place] # Seg Neutrophils % Seg Neuts % (Manual) 93.0 H Lymphocytes % (Manual) 5.0 L Seg Neutrophils # Seg Neutrophils # Man 15.4 H Lymphocytes # (Manual) 0.8 L Monocytes # (Manual) POC ABG pH ABG pH POC ABG pCO2 POC ABG pO2 ABG pO2 ABG HCO3 ABG Base Excess ABG Hemoglobin Oxyhemoglobin Sodium Potassium Chloride 97.9 L Carbon Dioxide 20 L D BUN 23 H Creatinine 1.7 H D Glucose 109 H POC Glucose Calcium 8.1 L Phosphorus Magnesium Direct Bilirubin AST Alkaline Phosphatase C-Reactive Protein Serum Total Protein Total Protein Albumin Prealbumin Gvrgl-7-Jnlggwelm Tekjg-0-Cyfmanhgk Gamma Globulins PEP Interpretation Triglycerides Urine pH Urine Creatinine Urine Total Protein Vancomycin Trough Digoxin Crossmatch 10/09/19 10/10/19 10/10/19 17:23 05:30 05:30 WBC 14.6 H RBC Hgb 11.1 L Hct 33.5 L MCV MCH MCHC RDW Plt Count 527 H Lymph % (Auto) [place] % (Auto) Lymph # [place] # Seg Neutrophils % Seg Neuts % (Manual) Lymphocytes % (Manual) Seg Neutrophils # Seg Neutrophils # Man Lymphocytes # (Manual) Monocytes # (Manual) POC ABG pH ABG pH POC ABG pCO2 POC ABG pO2 ABG pO2 ABG HCO3 ABG Base Excess ABG Hemoglobin Oxyhemoglobin Sodium 130 L D Potassium 5.1 H Chloride 90.0 L 91.0 L Carbon Dioxide 20 L 20 L BUN 27 H 35 H Creatinine 1.9 H 2.0 H Glucose 104 H POC Glucose Calcium Phosphorus Magnesium Direct Bilirubin AST Alkaline Phosphatase C-Reactive Protein Serum Total Protein Total Protein Albumin Prealbumin Zhdmu-3-Ekgxtergk Novab-8-Xlrneotww Gamma Globulins PEP Interpretation Triglycerides Urine pH Urine Creatinine Urine Total Protein Vancomycin Trough Digoxin Crossmatch 10/10/19 10/10/19 10/11/19 08:33 08:44 05:41 WBC 13.2 H RBC Hgb 11.3 L Hct 33.8 L MCV MCH MCHC RDW 15.3 H Plt Count 543 H Lymph % (Auto) [place] % (Auto) Lymph # [place] # Seg Neutrophils % Seg Neuts % (Manual) Lymphocytes % (Manual) Seg Neutrophils # Seg Neutrophils # Man Lymphocytes # (Manual) Monocytes # (Manual) POC ABG pH ABG pH POC ABG pCO2 POC ABG pO2 ABG pO2 ABG HCO3 ABG Base Excess ABG Hemoglobin Oxyhemoglobin Sodium Potassium Chloride Carbon Dioxide BUN Creatinine Glucose 113 H POC Glucose 117 H Calcium Phosphorus Magnesium Direct Bilirubin AST Alkaline Phosphatase C-Reactive Protein Serum Total Protein Total Protein Albumin Prealbumin Zqxvn-3-Wxwaeceas Bdmin-6-Mflshsvlh Gamma Globulins PEP Interpretation Triglycerides Urine pH Urine Creatinine Urine Total Protein Vancomycin Trough Digoxin Crossmatch 10/11/19 10/11/19 10/11/19 05:41 06:23 06:23 WBC RBC Hgb Hct MCV MCH MCHC RDW Plt Count Lymph % (Auto) [place] % (Auto) Lymph # [place] # Seg Neutrophils % Seg Neuts % (Manual) Lymphocytes % (Manual) Seg Neutrophils # Seg Neutrophils # Man Lymphocytes # (Manual) Monocytes # (Manual) POC ABG pH ABG pH POC ABG pCO2 POC ABG pO2 ABG pO2 ABG HCO3 ABG Base Excess ABG Hemoglobin Oxyhemoglobin Sodium 134 L Potassium Chloride 96.3 L Carbon Dioxide BUN 37 H Creatinine Glucose 58 L POC Glucose Calcium Phosphorus 4.90 H Magnesium Direct Bilirubin AST Alkaline Phosphatase C-Reactive Protein Serum Total Protein Total Protein Albumin Prealbumin Poexn-6-Ufbhtawwt Bcdam-9-Tnvqhuqyc Gamma Globulins PEP Interpretation Triglycerides Urine pH Urine Creatinine 118.2 H 116.8 H Urine Total Protein 105 H 104 H Vancomycin Trough Digoxin Crossmatch 10/11/19 10/12/19 10/12/19 09:00 06:09 06:09 WBC 13.8 H RBC 3.39 L Hgb 10.2 L Hct 30.9 L MCV MCH MCHC RDW 15.5 H Plt Count 459 H Lymph % (Auto) [place] % (Auto) Lymph # [place] # Seg Neutrophils % Seg Neuts % (Manual) Lymphocytes % (Manual) Seg Neutrophils # Seg Neutrophils # Man Lymphocytes # (Manual) Monocytes # (Manual) POC ABG pH ABG pH POC ABG pCO2 POC ABG pO2 ABG pO2 ABG HCO3 ABG Base Excess ABG Hemoglobin Oxyhemoglobin Sodium 131 L Potassium Chloride 96.2 L Carbon Dioxide 21 L BUN 43 H Creatinine Glucose 72 L POC Glucose Calcium Phosphorus Magnesium Direct Bilirubin AST Alkaline Phosphatase C-Reactive Protein Serum Total Protein 5.2 L Total Protein Albumin 1.9 L Prealbumin Faude-5-Iovuoribi 0.9 H Bswxo-6-Iqcmzljtf 1.0 H Gamma Globulins 0.7 L PEP Interpretation see below H Triglycerides Urine pH Urine Creatinine Urine Total Protein Vancomycin Trough Digoxin Crossmatch 10/12/19 10/12/19 10/12/19 08:20 09:30 09:30 WBC RBC Hgb Hct MCV MCH MCHC RDW Plt Count Lymph % (Auto) [place] % (Auto) Lymph # [place] # Seg Neutrophils % Seg Neuts % (Manual) Lymphocytes % (Manual) Seg Neutrophils # Seg Neutrophils # Man Lymphocytes # (Manual) Monocytes # (Manual) POC ABG pH ABG pH POC ABG pCO2 POC ABG pO2 63 L ABG pO2 ABG HCO3 ABG Base Excess ABG Hemoglobin Oxyhemoglobin Sodium Potassium Chloride Carbon Dioxide BUN Creatinine Glucose POC Glucose Calcium Phosphorus Magnesium 2.50 H Direct Bilirubin 0.3 H AST Alkaline Phosphatase C-Reactive Protein Serum Total Protein Total Protein 5.1 L Albumin 2.2 L Prealbumin Kcwot-4-Nukzadrus Srqja-3-Rttamtdsz Gamma Globulins PEP Interpretation Triglycerides Urine pH Urine Creatinine Urine Total Protein Vancomycin Trough Digoxin Crossmatch 10/13/19 10/13/19 10/13/19 04:20 04:20 13:20 WBC 15.7 H RBC 3.64 L Hgb 10.9 L Hct 33.1 L MCV MCH MCHC RDW 15.8 H Plt Count 488 H Lymph % (Auto) [place] % (Auto) Lymph # [place] # Seg Neutrophils % Seg Neuts % (Manual) Lymphocytes % (Manual) Seg Neutrophils # Seg Neutrophils # Man Lymphocytes # (Manual) Monocytes # (Manual) POC ABG pH ABG pH POC ABG pCO2 POC ABG pO2 ABG pO2 ABG HCO3 ABG Base Excess ABG Hemoglobin Oxyhemoglobin Sodium Potassium Chloride Carbon Dioxide BUN 28 H Creatinine Glucose POC Glucose Calcium Phosphorus Magnesium Direct Bilirubin AST Alkaline Phosphatase C-Reactive Protein Serum Total Protein Total Protein Albumin Prealbumin Xxijp-4-Dbykaqzft Khezd-3-Madzvtgic Gamma Globulins PEP Interpretation Triglycerides Urine pH Urine Creatinine Urine Total Protein Vancomycin Trough Digoxin Crossmatch See Detail 10/13/19 10/13/19 10/14/19 18:24 20:05 04:47 WBC 24.2 H RBC Hgb 10.9 L Hct 34.2 L MCV MCH MCHC RDW 17.0 H Plt Count 442 H Lymph % (Auto) [place] % (Auto) Lymph # [place] # Seg Neutrophils % Seg Neuts % (Manual) Lymphocytes % (Manual) Seg Neutrophils # Seg Neutrophils # Man Lymphocytes # (Manual) Monocytes # (Manual) POC ABG pH ABG pH 7.180 L* 7.278 L POC ABG pCO2 POC ABG pO2 ABG pO2 130.7 H ABG HCO3 ABG Base Excess -6.5 L -6.5 L ABG Hemoglobin 12.2 L 12.3 L Oxyhemoglobin 92.9 L Sodium Potassium Chloride Carbon Dioxide BUN Creatinine Glucose POC Glucose Calcium Phosphorus Magnesium Direct Bilirubin AST Alkaline Phosphatase C-Reactive Protein Serum Total Protein Total Protein Albumin Prealbumin Aplkw-9-Xnrffrczh Pxtso-0-Pzsnfbagr Gamma Globulins PEP Interpretation Triglycerides Urine pH Urine Creatinine Urine Total Protein Vancomycin Trough Digoxin Crossmatch 10/14/19 10/14/19 10/14/19 04:47 05:40 10:14 WBC RBC Hgb Hct MCV MCH MCHC RDW Plt Count Lymph % (Auto) [place] % (Auto) Lymph # [place] # Seg Neutrophils % Seg Neuts % (Manual) Lymphocytes % (Manual) Seg Neutrophils # Seg Neutrophils # Man Lymphocytes # (Manual) Monocytes # (Manual) POC ABG pH ABG pH POC ABG pCO2 POC ABG pO2 ABG pO2 76.3 L ABG HCO3 19.1 L ABG Base Excess -5.8 L ABG Hemoglobin 10.9 L Oxyhemoglobin 93.4 L Sodium Potassium 5.1 H D Chloride 109.2 H Carbon Dioxide 17 L BUN 38 H Creatinine 1.8 H D Glucose 104 H POC Glucose Calcium 7.4 L Phosphorus 5.60 H Magnesium Direct Bilirubin AST Alkaline Phosphatase C-Reactive Protein Serum Total Protein Total Protein Albumin Prealbumin Igqdk-9-Aaqapfbjj Xpsqr-1-Auofkwozk Gamma Globulins PEP Interpretation Triglycerides Urine pH Urine Creatinine Urine Total Protein Vancomycin Trough Digoxin Crossmatch 10/14/19 10/15/19 10/15/19 23:46 04:32 04:32 WBC 15.5 H RBC 2.89 L Hgb 8.8 L Hct 27.3 L D MCV MCH MCHC RDW 16.6 H Plt Count Lymph % (Auto) [place] % (Auto) Lymph # [place] # Seg Neutrophils % Seg Neuts % (Manual) Lymphocytes % (Manual) Seg Neutrophils # Seg Neutrophils # Man Lymphocytes # (Manual) Monocytes # (Manual) POC ABG pH ABG pH POC ABG pCO2 POC ABG pO2 ABG pO2 ABG HCO3 ABG Base Excess ABG Hemoglobin Oxyhemoglobin Sodium 147 H Potassium Chloride 114.0 H Carbon Dioxide 19 L BUN 42 H Creatinine Glucose 112 H POC Glucose 113 H Calcium 7.3 L Phosphorus Magnesium Direct Bilirubin AST 72 H Alkaline Phosphatase C-Reactive Protein 30.60 H Serum Total Protein Total Protein 4.0 L D Albumin 1.7 L Prealbumin 0.030 L Fzzht-6-Htvdonkmi Kjuyh-2-Mrphtgnrn Gamma Globulins PEP Interpretation Triglycerides Urine pH Urine Creatinine Urine Total Protein Vancomycin Trough Digoxin Crossmatch 10/15/19 10/15/19 10/15/19 05:30 12:08 17:23 WBC RBC Hgb Hct MCV MCH MCHC RDW Plt Count Lymph % (Auto) [place] % (Auto) Lymph # [place] # Seg Neutrophils % Seg Neuts % (Manual) Lymphocytes % (Manual) Seg Neutrophils # Seg Neutrophils # Man Lymphocytes # (Manual) Monocytes # (Manual) POC ABG pH ABG pH 7.296 L POC ABG pCO2 POC ABG pO2 ABG pO2 114.7 H ABG HCO3 ABG Base Excess -3.7 L ABG Hemoglobin 8.9 L Oxyhemoglobin Sodium Potassium Chloride Carbon Dioxide BUN Creatinine Glucose POC Glucose 106 H 106 H Calcium Phosphorus Magnesium Direct Bilirubin AST Alkaline Phosphatase C-Reactive Protein Serum Total Protein Total Protein Albumin Prealbumin Oegyj-3-Vqkqfuqcr Davba-8-Thpsioftf Gamma Globulins PEP Interpretation Triglycerides Urine pH Urine Creatinine Urine Total Protein Vancomycin Trough Digoxin Crossmatch 10/16/19 10/16/19 10/16/19 00:07 04:44 05:24 WBC RBC Hgb Hct MCV MCH MCHC RDW Plt Count Lymph % (Auto) [place] % (Auto) Lymph # [place] # Seg Neutrophils % Seg Neuts % (Manual) Lymphocytes % (Manual) Seg Neutrophils # Seg Neutrophils # Man Lymphocytes # (Manual) Monocytes # (Manual) POC ABG pH ABG pH POC ABG pCO2 POC ABG pO2 ABG pO2 ABG HCO3 ABG Base Excess ABG Hemoglobin Oxyhemoglobin Sodium 150 H Potassium Chloride 115.8 H Carbon Dioxide BUN 35 H Creatinine Glucose 129 H POC Glucose 119 H 129 H Calcium 7.3 L Phosphorus 1.80 L D Magnesium Direct Bilirubin AST Alkaline Phosphatase C-Reactive Protein Serum Total Protein Total Protein Albumin Prealbumin Cybme-9-Guaejzqhh Smjqj-2-Oeroudwac Gamma Globulins PEP Interpretation Triglycerides Urine pH Urine Creatinine Urine Total Protein Vancomycin Trough Digoxin Crossmatch 10/16/19 10/16/19 10/16/19 06:53 09:20 11:58 WBC 14.6 H RBC 2.70 L Hgb 8.1 L Hct 25.2 L MCV MCH MCHC RDW 16.7 H Plt Count Lymph % (Auto) [place] % (Auto) Lymph # [place] # Seg Neutrophils % Seg Neuts % (Manual) 79.0 H Lymphocytes % (Manual) 4.0 L Seg Neutrophils # Seg Neutrophils # Man 11.5 H Lymphocytes # (Manual) 0.6 L Monocytes # (Manual) POC ABG pH ABG pH POC ABG pCO2 47.0 H POC ABG pO2 ABG pO2 ABG HCO3 ABG Base Excess ABG Hemoglobin Oxyhemoglobin Sodium Potassium Chloride Carbon Dioxide BUN Creatinine Glucose POC Glucose Calcium Phosphorus Magnesium Direct Bilirubin AST Alkaline Phosphatase C-Reactive Protein Serum Total Protein Total Protein Albumin Prealbumin Jorjr-1-Rubzhzyko Rsgug-8-Xwknnxuld Gamma Globulins PEP Interpretation Triglycerides Urine pH Urine Creatinine Urine Total Protein Vancomycin Trough Digoxin Crossmatch See Detail 10/16/19 10/16/19 10/16/19 15:23 17:50 23:58 WBC RBC Hgb Hct MCV MCH MCHC RDW Plt Count Lymph % (Auto) [place] % (Auto) Lymph # [place] # Seg Neutrophils % Seg Neuts % (Manual) Lymphocytes % (Manual) Seg Neutrophils # Seg Neutrophils # Man Lymphocytes # (Manual) Monocytes # (Manual) POC ABG pH ABG pH POC ABG pCO2 POC ABG pO2 ABG pO2 ABG HCO3 ABG Base Excess ABG Hemoglobin Oxyhemoglobin Sodium Potassium Chloride Carbon Dioxide BUN Creatinine Glucose POC Glucose 221 H 201 H 179 H Calcium Phosphorus Magnesium Direct Bilirubin AST Alkaline Phosphatase C-Reactive Protein Serum Total Protein Total Protein Albumin Prealbumin Oewip-8-Afoeoahqo Rgfib-7-Ridbestmw Gamma Globulins PEP Interpretation Triglycerides Urine pH Urine Creatinine Urine Total Protein Vancomycin Trough Digoxin Crossmatch 10/17/19 10/17/19 10/17/19 04:08 04:08 05:41 WBC 22.3 H RBC 3.35 L Hgb 10.0 L Hct 31.2 L D MCV MCH MCHC RDW 16.1 H Plt Count Lymph % (Auto) [place] % (Auto) Lymph # [place] # Seg Neutrophils % Seg Neuts % (Manual) Lymphocytes % (Manual) Seg Neutrophils # Seg Neutrophils # Man Lymphocytes # (Manual) Monocytes # (Manual) POC ABG pH 7.310 L ABG pH POC ABG pCO2 52.8 H POC ABG pO2 70 L ABG pO2 ABG HCO3 ABG Base Excess ABG Hemoglobin Oxyhemoglobin Sodium 147 H Potassium Chloride 114.9 H Carbon Dioxide BUN 36 H Creatinine Glucose 165 H POC Glucose Calcium 6.9 L Phosphorus 2.20 L D Magnesium Direct Bilirubin AST Alkaline Phosphatase C-Reactive Protein Serum Total Protein Total Protein Albumin Prealbumin Veaqv-3-Iidaxrwss Pncoz-8-Srnpccfbm Gamma Globulins PEP Interpretation Triglycerides Urine pH Urine Creatinine Urine Total Protein Vancomycin Trough Digoxin Crossmatch 10/17/19 10/17/19 10/17/19 05:42 11:33 18:17 WBC RBC Hgb Hct MCV MCH MCHC RDW Plt Count Lymph % (Auto) [place] % (Auto) Lymph # [place] # Seg Neutrophils % Seg Neuts % (Manual) Lymphocytes % (Manual) Seg Neutrophils # Seg Neutrophils # Man Lymphocytes # (Manual) Monocytes # (Manual) POC ABG pH ABG pH POC ABG pCO2 POC ABG pO2 ABG pO2 ABG HCO3 ABG Base Excess ABG Hemoglobin Oxyhemoglobin Sodium Potassium Chloride Carbon Dioxide BUN Creatinine Glucose POC Glucose 149 H 154 H 163 H Calcium Phosphorus Magnesium Direct Bilirubin AST Alkaline Phosphatase C-Reactive Protein Serum Total Protein Total Protein Albumin Prealbumin Flcxr-1-Jlzlsacer Qjmxy-7-Gzyjcttaz Gamma Globulins PEP Interpretation Triglycerides Urine pH Urine Creatinine Urine Total Protein Vancomycin Trough Digoxin Crossmatch 10/17/19 10/18/19 10/18/19 23:34 03:29 04:50 WBC RBC Hgb Hct MCV MCH MCHC RDW Plt Count Lymph % (Auto) [place] % (Auto) Lymph # [place] # Seg Neutrophils % Seg Neuts % (Manual) Lymphocytes % (Manual) Seg Neutrophils # Seg Neutrophils # Man Lymphocytes # (Manual) Monocytes # (Manual) POC ABG pH ABG pH POC ABG pCO2 POC ABG pO2 ABG pO2 78.8 L ABG HCO3 ABG Base Excess ABG Hemoglobin 8.8 L Oxyhemoglobin Sodium Potassium Chloride 111.8 H Carbon Dioxide BUN 27 H Creatinine 0.6 L Glucose 140 H POC Glucose 135 H Calcium 7.1 L Phosphorus 1.80 L Magnesium Direct Bilirubin AST Alkaline Phosphatase C-Reactive Protein Serum Total Protein Total Protein Albumin Prealbumin Thypz-6-Sashtvczj Tpzah-2-Itdzzchod Gamma Globulins PEP Interpretation Triglycerides Urine pH Urine Creatinine Urine Total Protein Vancomycin Trough Digoxin Crossmatch 10/18/19 10/18/19 10/18/19 05:45 11:19 18:26 WBC RBC Hgb Hct MCV MCH MCHC RDW Plt Count Lymph % (Auto) [place] % (Auto) Lymph # [place] # Seg Neutrophils % Seg Neuts % (Manual) Lymphocytes % (Manual) Seg Neutrophils # Seg Neutrophils # Man Lymphocytes # (Manual) Monocytes # (Manual) POC ABG pH ABG pH POC ABG pCO2 POC ABG pO2 ABG pO2 ABG HCO3 ABG Base Excess ABG Hemoglobin Oxyhemoglobin Sodium Potassium Chloride Carbon Dioxide BUN Creatinine Glucose POC Glucose 145 H 152 H 125 H Calcium Phosphorus Magnesium Direct Bilirubin AST Alkaline Phosphatase C-Reactive Protein Serum Total Protein Total Protein Albumin Prealbumin Wsswa-8-Wkhsecouu Jcwdz-0-Smkewngwp Gamma Globulins PEP Interpretation Triglycerides Urine pH Urine Creatinine Urine Total Protein Vancomycin Trough Digoxin Crossmatch 10/18/19 10/19/19 10/19/19 23:27 04:21 04:21 WBC RBC Hgb Hct MCV MCH MCHC RDW Plt Count Lymph % (Auto) [place] % (Auto) Lymph # [place] # Seg Neutrophils % Seg Neuts % (Manual) Lymphocytes % (Manual) Seg Neutrophils # Seg Neutrophils # Man Lymphocytes # (Manual) Monocytes # (Manual) POC ABG pH ABG pH POC ABG pCO2 POC ABG pO2 ABG pO2 ABG HCO3 ABG Base Excess ABG Hemoglobin Oxyhemoglobin Sodium Potassium Chloride 108.4 H Carbon Dioxide BUN 22 H Creatinine 0.5 L Glucose 123 H POC Glucose 127 H Calcium 7.4 L Phosphorus 1.80 L Magnesium Direct Bilirubin AST Alkaline Phosphatase C-Reactive Protein Serum Total Protein Total Protein Albumin Prealbumin Ilroz-0-Gylzwvawk Vtlla-7-Rnpwcssqz Gamma Globulins PEP Interpretation Triglycerides Urine pH Urine Creatinine Urine Total Protein Vancomycin Trough Digoxin 0.7 L Crossmatch 10/19/19 10/19/19 10/19/19 05:00 05:35 11:26 WBC RBC Hgb Hct MCV MCH MCHC RDW Plt Count Lymph % (Auto) [place] % (Auto) Lymph # [place] # Seg Neutrophils % Seg Neuts % (Manual) Lymphocytes % (Manual) Seg Neutrophils # Seg Neutrophils # Man Lymphocytes # (Manual) Monocytes # (Manual) POC ABG pH ABG pH 7.456 H POC ABG pCO2 POC ABG pO2 ABG pO2 78.8 L ABG HCO3 ABG Base Excess ABG Hemoglobin 5.6 L Oxyhemoglobin Sodium Potassium Chloride Carbon Dioxide BUN Creatinine Glucose POC Glucose 124 H 111 H Calcium Phosphorus Magnesium Direct Bilirubin AST Alkaline Phosphatase C-Reactive Protein Serum Total Protein Total Protein Albumin Prealbumin Vdarv-1-Xikwweqej Rhdos-8-Xkincleos Gamma Globulins PEP Interpretation Triglycerides Urine pH Urine Creatinine Urine Total Protein Vancomycin Trough Digoxin Crossmatch 10/19/19 10/20/19 10/20/19 23:23 04:50 05:17 WBC RBC Hgb Hct MCV MCH MCHC RDW Plt Count Lymph % (Auto) [place] % (Auto) Lymph # [place] # Seg Neutrophils % Seg Neuts % (Manual) Lymphocytes % (Manual) Seg Neutrophils # Seg Neutrophils # Man Lymphocytes # (Manual) Monocytes # (Manual) POC ABG pH ABG pH POC ABG pCO2 POC ABG pO2 ABG pO2 ABG HCO3 ABG Base Excess ABG Hemoglobin Oxyhemoglobin Sodium Potassium Chloride 108.1 H Carbon Dioxide BUN Creatinine 0.4 L Glucose 134 H POC Glucose 129 H 123 H Calcium 7.1 L Phosphorus Magnesium Direct Bilirubin AST Alkaline Phosphatase C-Reactive Protein Serum Total Protein Total Protein Albumin Prealbumin Xvxce-3-Egetkhsci Dbrgo-5-Hqkzaeqkn Gamma Globulins PEP Interpretation Triglycerides Urine pH Urine Creatinine Urine Total Protein Vancomycin Trough Digoxin Crossmatch 10/20/19 10/20/19 10/21/19 11:40 19:06 05:08 WBC RBC Hgb Hct MCV MCH MCHC RDW Plt Count Lymph % (Auto) [place] % (Auto) Lymph # [place] # Seg Neutrophils % Seg Neuts % (Manual) Lymphocytes % (Manual) Seg Neutrophils # Seg Neutrophils # Man Lymphocytes # (Manual) Monocytes # (Manual) POC ABG pH ABG pH POC ABG pCO2 POC ABG pO2 ABG pO2 ABG HCO3 ABG Base Excess ABG Hemoglobin Oxyhemoglobin Sodium Potassium Chloride Carbon Dioxide BUN Creatinine Glucose POC Glucose 139 H 117 H 131 H Calcium Phosphorus Magnesium Direct Bilirubin AST Alkaline Phosphatase C-Reactive Protein Serum Total Protein Total Protein Albumin Prealbumin Kmwaj-1-Snnirywvp Eydey-3-Gfocauddo Gamma Globulins PEP Interpretation Triglycerides Urine pH Urine Creatinine Urine Total Protein Vancomycin Trough Digoxin Crossmatch 10/21/19 10/21/19 10/21/19 05:30 12:04 17:31 WBC RBC Hgb Hct MCV MCH MCHC RDW Plt Count Lymph % (Auto) [place] % (Auto) Lymph # [place] # Seg Neutrophils % Seg Neuts % (Manual) Lymphocytes % (Manual) Seg Neutrophils # Seg Neutrophils # Man Lymphocytes # (Manual) Monocytes # (Manual) POC ABG pH ABG pH POC ABG pCO2 POC ABG pO2 ABG pO2 ABG HCO3 ABG Base Excess ABG Hemoglobin Oxyhemoglobin Sodium Potassium Chloride 107.8 H Carbon Dioxide BUN Creatinine 0.5 L Glucose 119 H POC Glucose 119 H 110 H Calcium 7.6 L Phosphorus Magnesium Direct Bilirubin AST Alkaline Phosphatase C-Reactive Protein Serum Total Protein Total Protein Albumin Prealbumin Rerwz-1-Jorcomwfc Slbbx-2-Datfucgab Gamma Globulins PEP Interpretation Triglycerides Urine pH Urine Creatinine Urine Total Protein Vancomycin Trough Digoxin Crossmatch 10/22/19 10/22/19 10/22/19 05:14 05:37 12:07 WBC RBC Hgb Hct MCV MCH MCHC RDW Plt Count Lymph % (Auto) [place] % (Auto) Lymph # [place] # Seg Neutrophils % Seg Neuts % (Manual) Lymphocytes % (Manual) Seg Neutrophils # Seg Neutrophils # Man Lymphocytes # (Manual) Monocytes # (Manual) POC ABG pH ABG pH POC ABG pCO2 POC ABG pO2 ABG pO2 ABG HCO3 ABG Base Excess ABG Hemoglobin Oxyhemoglobin Sodium Potassium Chloride Carbon Dioxide BUN Creatinine 0.5 L Glucose 116 H POC Glucose 110 H 126 H Calcium 7.7 L Phosphorus Magnesium Direct Bilirubin AST Alkaline Phosphatase C-Reactive Protein Serum Total Protein Total Protein Albumin Prealbumin Xnxac-8-Jeqvrzofp Efkwr-5-Bzlqrtaxa Gamma Globulins PEP Interpretation Triglycerides Urine pH Urine Creatinine Urine Total Protein Vancomycin Trough Digoxin Crossmatch 10/22/19 10/22/19 10/23/19 18:36 23:19 04:39 WBC RBC Hgb Hct MCV MCH MCHC RDW Plt Count Lymph % (Auto) [place] % (Auto) Lymph # [place] # Seg Neutrophils % Seg Neuts % (Manual) Lymphocytes % (Manual) Seg Neutrophils # Seg Neutrophils # Man Lymphocytes # (Manual) Monocytes # (Manual) POC ABG pH ABG pH POC ABG pCO2 POC ABG pO2 ABG pO2 ABG HCO3 ABG Base Excess ABG Hemoglobin Oxyhemoglobin Sodium Potassium Chloride Carbon Dioxide BUN Creatinine Glucose POC Glucose 120 H 127 H 112 H Calcium Phosphorus Magnesium Direct Bilirubin AST Alkaline Phosphatase C-Reactive Protein Serum Total Protein Total Protein Albumin Prealbumin Xycfo-4-Uijxqgvst Edrvn-8-Vqaufaqhu Gamma Globulins PEP Interpretation Triglycerides Urine pH Urine Creatinine Urine Total Protein Vancomycin Trough Digoxin Crossmatch 10/23/19 10/23/19 10/23/19 04:47 05:15 10:44 WBC 18.3 H RBC 2.33 L Hgb 7.0 L Hct 21.5 L MCV MCH MCHC RDW 16.2 H Plt Count Lymph % (Auto) 4.9 L [place] % (Auto) 8.1 H Lymph # 0.9 L [place] # 1.5 H Seg Neutrophils % 86.7 H Seg Neuts % (Manual) Lymphocytes % (Manual) Seg Neutrophils # 15.9 H Seg Neutrophils # Man Lymphocytes # (Manual) Monocytes # (Manual) POC ABG pH ABG pH POC ABG pCO2 POC ABG pO2 ABG pO2 68.9 L ABG HCO3 28.7 H ABG Base Excess 3.4 H ABG Hemoglobin 6.6 L Oxyhemoglobin 94.1 L Sodium Potassium Chloride Carbon Dioxide BUN Creatinine 0.5 L Glucose 165 H POC Glucose Calcium 7.4 L Phosphorus Magnesium Direct Bilirubin AST Alkaline Phosphatase C-Reactive Protein Serum Total Protein Total Protein Albumin Prealbumin Eapzy-4-Xvpugnkcy Bgsku-6-Kclfmcbur Gamma Globulins PEP Interpretation Triglycerides Urine pH Urine Creatinine Urine Total Protein Vancomycin Trough Digoxin Crossmatch 10/23/19 10/23/19 10/23/19 10:44 11:46 11:50 WBC RBC Hgb Hct MCV MCH MCHC RDW Plt Count Lymph % (Auto) [place] % (Auto) Lymph # [place] # Seg Neutrophils % Seg Neuts % (Manual) Lymphocytes % (Manual) Seg Neutrophils # Seg Neutrophils # Man Lymphocytes # (Manual) Monocytes # (Manual) POC ABG pH ABG pH POC ABG pCO2 POC ABG pO2 ABG pO2 ABG HCO3 ABG Base Excess ABG Hemoglobin Oxyhemoglobin Sodium Potassium Chloride Carbon Dioxide BUN Creatinine Glucose POC Glucose 138 H Calcium Phosphorus Magnesium Direct Bilirubin 0.7 H AST Alkaline Phosphatase C-Reactive Protein Serum Total Protein Total Protein 4.5 L Albumin 1.2 L Prealbumin Rdxno-9-Auxbrunxh Yeezj-8-Fuknxvdhj Gamma Globulins PEP Interpretation Triglycerides Urine pH Urine Creatinine Urine Total Protein Vancomycin Trough Digoxin Crossmatch See Detail 10/23/19 10/24/19 10/24/19 17:53 00:07 05:05 WBC RBC Hgb Hct MCV MCH MCHC RDW Plt Count Lymph % (Auto) [place] % (Auto) Lymph # [place] # Seg Neutrophils % Seg Neuts % (Manual) Lymphocytes % (Manual) Seg Neutrophils # Seg Neutrophils # Man Lymphocytes # (Manual) Monocytes # (Manual) POC ABG pH ABG pH POC ABG pCO2 POC ABG pO2 ABG pO2 ABG HCO3 ABG Base Excess ABG Hemoglobin Oxyhemoglobin Sodium Potassium 3.5 L Chloride Carbon Dioxide BUN Creatinine 0.5 L Glucose 116 H POC Glucose 137 H 110 H Calcium 8.0 L Phosphorus Magnesium Direct Bilirubin AST Alkaline Phosphatase C-Reactive Protein Serum Total Protein Total Protein Albumin Prealbumin Xazwe-0-Zctcjgqll Mkdox-1-Lwratctul Gamma Globulins PEP Interpretation Triglycerides Urine pH Urine Creatinine Urine Total Protein Vancomycin Trough Digoxin Crossmatch 10/24/19 10/24/19 10/24/19 05:05 11:56 13:00 WBC 13.0 H RBC 2.73 L Hgb 8.0 L Hct 24.2 L MCV MCH MCHC RDW 17.9 H Plt Count Lymph % (Auto) 7.0 L [place] % (Auto) 9.5 H Lymph # 0.9 L [place] # 1.2 H Seg Neutrophils % 82.7 H Seg Neuts % (Manual) Lymphocytes % (Manual) Seg Neutrophils # 10.7 H Seg Neutrophils # Man Lymphocytes # (Manual) Monocytes # (Manual) POC ABG pH ABG pH POC ABG pCO2 POC ABG pO2 ABG pO2 ABG HCO3 ABG Base Excess ABG Hemoglobin Oxyhemoglobin Sodium Potassium Chloride Carbon Dioxide BUN Creatinine Glucose POC Glucose 159 H Calcium Phosphorus Magnesium Direct Bilirubin AST Alkaline Phosphatase C-Reactive Protein Serum Total Protein Total Protein Albumin Prealbumin Qcjma-6-Rcducqbmg Wseiv-4-Jvfihwtny Gamma Globulins PEP Interpretation Triglycerides 216 H Urine pH Urine Creatinine Urine Total Protein Vancomycin Trough Digoxin Crossmatch 10/24/19 10/24/19 10/25/19 17:42 23:45 04:19 WBC RBC Hgb Hct MCV MCH MCHC RDW Plt Count Lymph % (Auto) [place] % (Auto) Lymph # [place] # Seg Neutrophils % Seg Neuts % (Manual) Lymphocytes % (Manual) Seg Neutrophils # Seg Neutrophils # Man Lymphocytes # (Manual) Monocytes # (Manual) POC ABG pH ABG pH POC ABG pCO2 POC ABG pO2 ABG pO2 ABG HCO3 ABG Base Excess ABG Hemoglobin Oxyhemoglobin Sodium 147 H Potassium Chloride Carbon Dioxide 33 H BUN Creatinine 0.5 L Glucose 111 H POC Glucose 120 H 116 H Calcium Phosphorus Magnesium Direct Bilirubin AST Alkaline Phosphatase C-Reactive Protein Serum Total Protein Total Protein 5.7 L D Albumin 2.5 L Prealbumin Jwxuh-5-Rbzrncebe Mzvqc-6-Nuvguthux Gamma Globulins PEP Interpretation Triglycerides 230 H Urine pH Urine Creatinine Urine Total Protein Vancomycin Trough Digoxin Crossmatch 10/25/19 10/25/19 10/25/19 04:19 05:31 12:20 WBC RBC 2.69 L Hgb 8.1 L Hct 23.9 L MCV MCH MCHC RDW 17.3 H Plt Count Lymph % (Auto) [place] % (Auto) Lymph # [place] # Seg Neutrophils % Seg Neuts % (Manual) Lymphocytes % (Manual) Seg Neutrophils # Seg Neutrophils # Man Lymphocytes # (Manual) Monocytes # (Manual) POC ABG pH ABG pH POC ABG pCO2 POC ABG pO2 ABG pO2 ABG HCO3 ABG Base Excess ABG Hemoglobin Oxyhemoglobin Sodium Potassium Chloride Carbon Dioxide BUN Creatinine Glucose POC Glucose 126 H 114 H Calcium Phosphorus Magnesium Direct Bilirubin AST Alkaline Phosphatase C-Reactive Protein Serum Total Protein Total Protein Albumin Prealbumin [place]-9-Fzaygdpjk Aibrt-8-Qhysnlmxd Gamma Globulins PEP Interpretation Triglycerides Urine pH Urine Creatinine Urine Total Protein Vancomycin Trough Digoxin Crossmatch 10/25/19 10/25/19 10/26/19 18:30 23:09 06:15 WBC RBC Hgb Hct MCV MCH MCHC RDW Plt Count Lymph % (Auto) [place] % (Auto) Lymph # [place] # Seg Neutrophils % Seg Neuts % (Manual) Lymphocytes % (Manual) Seg Neutrophils # Seg Neutrophils # Man Lymphocytes # (Manual) Monocytes # (Manual) POC ABG pH ABG pH POC ABG pCO2 POC ABG pO2 ABG pO2 ABG HCO3 ABG Base Excess ABG Hemoglobin Oxyhemoglobin Sodium Potassium 3.5 L Chloride Carbon Dioxide BUN Creatinine 0.5 L Glucose 112 H POC Glucose 121 H 107 H Calcium 8.3 L Phosphorus Magnesium Direct Bilirubin AST Alkaline Phosphatase 148 H C-Reactive Protein Serum Total Protein Total Protein 5.9 L Albumin 2.4 L Prealbumin Hkwvl-3-Lqivrtauj Qocjm-9-Pghvxanrw Gamma Globulins PEP Interpretation Triglycerides Urine pH Urine Creatinine Urine Total Protein Vancomycin Trough Digoxin Crossmatch 12/13/19 12/13/19 12/13/19 06:15 12:21 17:35 WBC RBC Hgb Hct MCV MCH MCHC RDW Plt Count Lymph % (Auto) [place] % (Auto) Lymph # [place] # Seg Neutrophils % Seg Neuts % (Manual) Lymphocytes % (Manual) Seg Neutrophils # Seg Neutrophils # Man Lymphocytes # (Manual) Monocytes # (Manual) POC ABG pH ABG pH POC ABG pCO2 POC ABG pO2 ABG pO2 ABG HCO3 ABG Base Excess ABG Hemoglobin Oxyhemoglobin Sodium Potassium Chloride Carbon Dioxide BUN Creatinine Glucose POC Glucose 134 H 141 H Calcium Phosphorus Magnesium Direct Bilirubin AST Alkaline Phosphatase C-Reactive Protein Serum Total Protein Total Protein Albumin Prealbumin Vwttv-9-Jdblvnrjy Ietne-7-Adnpsxpts Gamma Globulins PEP Interpretation Triglycerides 185 H Urine pH Urine Creatinine Urine Total Protein Vancomycin Trough Digoxin Crossmatch 10/26/19 10/27/19 10/27/19 Unknown 04:30 11:33 WBC RBC Hgb Hct MCV MCH MCHC RDW Plt Count Lymph % (Auto) [place] % (Auto) Lymph # [place] # Seg Neutrophils % Seg Neuts % (Manual) Lymphocytes % (Manual) Seg Neutrophils # Seg Neutrophils # Man Lymphocytes # (Manual) Monocytes # (Manual) POC ABG pH ABG pH POC ABG pCO2 POC ABG pO2 ABG pO2 ABG HCO3 ABG Base Excess ABG Hemoglobin Oxyhemoglobin Sodium Potassium 3.2 L Chloride Carbon Dioxide BUN 23 H Creatinine 0.6 L Glucose 130 H POC Glucose 131 H Calcium 7.9 L Phosphorus Magnesium Direct Bilirubin AST Alkaline Phosphatase C-Reactive Protein Serum Total Protein Total Protein Albumin Prealbumin Kmzwz-5-Qfprkwogl Bzrlh-7-Fsxygldpd Gamma Globulins PEP Interpretation Triglycerides Urine pH 9.0 H Urine Creatinine Urine Total Protein Vancomycin Trough Digoxin Crossmatch 10/27/19 10/28/19 10/28/19 17:45 05:25 05:49 WBC RBC 2.85 L Hgb 8.3 L Hct 26.8 L MCV MCH MCHC 31 L RDW 17.4 H Plt Count Lymph % (Auto) 8.9 L [place] % (Auto) 14.3 H Lymph # 0.8 L [place] # 1.3 H Seg Neutrophils % 76.5 H Seg Neuts % (Manual) Lymphocytes % (Manual) Seg Neutrophils # Seg Neutrophils # Man Lymphocytes # (Manual) Monocytes # (Manual) POC ABG pH ABG pH POC ABG pCO2 POC ABG pO2 ABG pO2 ABG HCO3 ABG Base Excess ABG Hemoglobin Oxyhemoglobin Sodium Potassium Chloride Carbon Dioxide BUN Creatinine Glucose POC Glucose 121 H 120 H Calcium Phosphorus Magnesium Direct Bilirubin AST Alkaline Phosphatase C-Reactive Protein Serum Total Protein Total Protein Albumin Prealbumin Wpqxp-4-Qapexgciy Heeuv-7-Rqntwafay Gamma Globulins PEP Interpretation Triglycerides Urine pH Urine Creatinine Urine Total Protein Vancomycin Trough Digoxin Crossmatch 10/28/19 10/28/19 10/28/19 07:19 12:07 18:21 WBC RBC Hgb Hct MCV MCH MCHC RDW Plt Count Lymph % (Auto) [place] % (Auto) Lymph # [place] # Seg Neutrophils % Seg Neuts % (Manual) Lymphocytes % (Manual) Seg Neutrophils # Seg Neutrophils # Man Lymphocytes # (Manual) Monocytes # (Manual) POC ABG pH ABG pH POC ABG pCO2 POC ABG pO2 ABG pO2 ABG HCO3 ABG Base Excess ABG Hemoglobin Oxyhemoglobin Sodium Potassium Chloride Carbon Dioxide BUN 23 H Creatinine 0.5 L Glucose 129 H POC Glucose 127 H 130 H Calcium 8.0 L Phosphorus Magnesium Direct Bilirubin AST Alkaline Phosphatase C-Reactive Protein Serum Total Protein Total Protein Albumin Prealbumin Wlmfx-5-Xxbfwqplo Iiqyq-6-Jdfpcidpi Gamma Globulins PEP Interpretation Triglycerides Urine pH Urine Creatinine Urine Total Protein Vancomycin Trough Digoxin Crossmatch 10/28/19 10/29/19 10/29/19 23:30 05:30 05:30 WBC 11.2 H RBC 3.36 L Hgb 9.7 L Hct 29.4 L MCV MCH MCHC RDW 16.7 H Plt Count Lymph % (Auto) [place] % (Auto) 16.0 H Lymph # [place] # 1.8 H Seg Neutrophils % 70.2 H Seg Neuts % (Manual) Lymphocytes % (Manual) Seg Neutrophils # 7.9 H Seg Neutrophils # Man Lymphocytes # (Manual) Monocytes # (Manual) POC ABG pH ABG pH POC ABG pCO2 POC ABG pO2 ABG pO2 ABG HCO3 ABG Base Excess ABG Hemoglobin Oxyhemoglobin Sodium Potassium Chloride Carbon Dioxide BUN 23 H Creatinine 0.5 L Glucose POC Glucose 130 H Calcium 8.3 L Phosphorus Magnesium Direct Bilirubin AST Alkaline Phosphatase C-Reactive Protein Serum Total Protein Total Protein Albumin Prealbumin Hqixt-3-Ftrtgyjof Owsjt-7-Ugtvkzskc Gamma Globulins PEP Interpretation Triglycerides Urine pH Urine Creatinine Urine Total Protein Vancomycin Trough Digoxin Crossmatch 10/29/19 10/29/19 10/29/19 05:52 13:10 18:02 WBC RBC Hgb Hct MCV MCH MCHC RDW Plt Count Lymph % (Auto) [place] % (Auto) Lymph # [place] # Seg Neutrophils % Seg Neuts % (Manual) Lymphocytes % (Manual) Seg Neutrophils # Seg Neutrophils # Man Lymphocytes # (Manual) Monocytes # (Manual) POC ABG pH ABG pH POC ABG pCO2 POC ABG pO2 ABG pO2 ABG HCO3 ABG Base Excess ABG Hemoglobin Oxyhemoglobin Sodium Potassium Chloride Carbon Dioxide BUN Creatinine Glucose POC Glucose 111 H 140 H 140 H Calcium Phosphorus Magnesium Direct Bilirubin AST Alkaline Phosphatase C-Reactive Protein Serum Total Protein Total Protein Albumin Prealbumin Qbflb-2-Nwbvrkmid Xqoqc-8-Kpsyjdfsy Gamma Globulins PEP Interpretation Triglycerides Urine pH Urine Creatinine Urine Total Protein Vancomycin Trough Digoxin Crossmatch 10/29/19 10/30/19 10/30/19 23:58 01:05 05:15 WBC RBC Hgb Hct MCV MCH MCHC RDW Plt Count Lymph % (Auto) [place] % (Auto) Lymph # [place] # Seg Neutrophils % Seg Neuts % (Manual) Lymphocytes % (Manual) Seg Neutrophils # Seg Neutrophils # Man Lymphocytes # (Manual) Monocytes # (Manual) POC ABG pH ABG pH POC ABG pCO2 62.0 H POC ABG pO2 168 H ABG pO2 ABG HCO3 ABG Base Excess ABG Hemoglobin Oxyhemoglobin Sodium 147 H Potassium Chloride 107.8 H Carbon Dioxide BUN 26 H Creatinine 0.5 L Glucose 139 H POC Glucose 161 H Calcium Phosphorus Magnesium 2.40 H Direct Bilirubin AST Alkaline Phosphatase C-Reactive Protein Serum Total Protein Total Protein Albumin Prealbumin Rxszo-7-Eghudmhbh Jqizs-5-Sgtnstcpk Gamma Globulins PEP Interpretation Triglycerides Urine pH Urine Creatinine Urine Total Protein Vancomycin Trough Digoxin Crossmatch 10/30/19 10/30/19 10/30/19 05:15 06:32 09:44 WBC 13.8 H RBC 3.59 L Hgb 10.1 L Hct 32.4 L MCV MCH MCHC 31 L RDW 17.4 H Plt Count Lymph % (Auto) 11.2 L [place] % (Auto) 13.6 H Lymph # [place] # 1.9 H Seg Neutrophils % 75.1 H Seg Neuts % (Manual) Lymphocytes % (Manual) Seg Neutrophils # 10.4 H Seg Neutrophils # Man Lymphocytes # (Manual) Monocytes # (Manual) POC ABG pH ABG pH POC ABG pCO2 51.7 H POC ABG pO2 111 H ABG pO2 ABG HCO3 ABG Base Excess ABG Hemoglobin Oxyhemoglobin Sodium Potassium Chloride Carbon Dioxide BUN Creatinine Glucose POC Glucose 141 H Calcium Phosphorus Magnesium Direct Bilirubin AST Alkaline Phosphatase C-Reactive Protein Serum Total Protein Total Protein Albumin Prealbumin Adxck-3-Urpmgdrmn Wijya-1-Lsvbtusqi Gamma Globulins PEP Interpretation Triglycerides Urine pH Urine Creatinine Urine Total Protein Vancomycin Trough Digoxin Crossmatch 10/30/19 10/31/19 10/31/19 18:10 04:18 04:18 WBC 11.7 H RBC 3.11 L Hgb 9.0 L Hct 27.9 L MCV MCH MCHC RDW 17.1 H Plt Count Lymph % (Auto) [place] % (Auto) Lymph # [place] # Seg Neutrophils % Seg Neuts % (Manual) Lymphocytes % (Manual) Seg Neutrophils # Seg Neutrophils # Man Lymphocytes # (Manual) Monocytes # (Manual) POC ABG pH ABG pH POC ABG pCO2 POC ABG pO2 ABG pO2 ABG HCO3 ABG Base Excess ABG Hemoglobin Oxyhemoglobin Sodium 148 H Potassium Chloride 108.7 H Carbon Dioxide BUN 37 H Creatinine 0.7 L Glucose 102 H POC Glucose 131 H Calcium Phosphorus Magnesium Direct Bilirubin AST Alkaline Phosphatase C-Reactive Protein Serum Total Protein Total Protein Albumin Prealbumin Nghak-9-Ekbskokmv Crzpg-0-Cgqnzpzft Gamma Globulins PEP Interpretation Triglycerides Urine pH Urine Creatinine Urine Total Protein Vancomycin Trough Digoxin Crossmatch 10/31/19 10/31/19 10/31/19 11:32 12:55 18:10 WBC RBC Hgb Hct MCV MCH MCHC RDW Plt Count Lymph % (Auto) [place] % (Auto) Lymph # [place] # Seg Neutrophils % Seg Neuts % (Manual) Lymphocytes % (Manual) Seg Neutrophils # Seg Neutrophils # Man Lymphocytes # (Manual) Monocytes # (Manual) POC ABG pH ABG pH POC ABG pCO2 57.9 H POC ABG pO2 135 H ABG pO2 ABG HCO3 ABG Base Excess ABG Hemoglobin Oxyhemoglobin Sodium Potassium Chloride Carbon Dioxide BUN Creatinine Glucose POC Glucose 120 H Calcium Phosphorus Magnesium Direct Bilirubin AST Alkaline Phosphatase C-Reactive Protein Serum Total Protein Total Protein Albumin Prealbumin Pkxuw-8-Tesfagtel Swufk-3-Qvjhhfpkx Gamma Globulins PEP Interpretation Triglycerides Urine pH Urine Creatinine Urine Total Protein Vancomycin Trough 41.7 H Digoxin Crossmatch 12/11/01/19 11/01/19 23:08 05:30 05:30 WBC 14.6 H RBC 3.13 L Hgb 8.9 L Hct 27.7 L MCV MCH MCHC RDW 17.0 H Plt Count Lymph % (Auto) [place] % (Auto) Lymph # [place] # Seg Neutrophils % Seg Neuts % (Manual) Lymphocytes % (Manual) Seg Neutrophils # Seg Neutrophils # Man Lymphocytes # (Manual) Monocytes # (Manual) POC ABG pH ABG pH POC ABG pCO2 POC ABG pO2 ABG pO2 ABG HCO3 ABG Base Excess ABG Hemoglobin Oxyhemoglobin Sodium 149 H Potassium Chloride 109.0 H Carbon Dioxide BUN 26 H Creatinine 0.7 L Glucose 129 H POC Glucose 109 H Calcium Phosphorus Magnesium Direct Bilirubin AST Alkaline Phosphatase C-Reactive Protein Serum Total Protein Total Protein Albumin Prealbumin Ppwgf-2-Vftmfvvmx Mnbtj-7-Hqftejisn Gamma Globulins PEP Interpretation Triglycerides Urine pH Urine Creatinine Urine Total Protein Vancomycin Trough Digoxin Crossmatch 11/01/19 11/01/19 11/01/19 06:09 06:10 11:52 WBC RBC Hgb Hct MCV MCH MCHC RDW Plt Count Lymph % (Auto) [place] % (Auto) Lymph # [place] # Seg Neutrophils % Seg Neuts % (Manual) Lymphocytes % (Manual) Seg Neutrophils # Seg Neutrophils # Man Lymphocytes # (Manual) Monocytes # (Manual) POC ABG pH ABG pH POC ABG pCO2 51.3 H POC ABG pO2 71 L ABG pO2 ABG HCO3 ABG Base Excess ABG Hemoglobin Oxyhemoglobin Sodium Potassium Chloride Carbon Dioxide BUN Creatinine Glucose POC Glucose 113 H 106 H Calcium Phosphorus Magnesium Direct Bilirubin AST Alkaline Phosphatase C-Reactive Protein Serum Total Protein Total Protein Albumin Prealbumin Tejsk-1-Rrydqlxdq Frbof-7-Usubqmanp Gamma Globulins PEP Interpretation Triglycerides Urine pH Urine Creatinine Urine Total Protein Vancomycin Trough Digoxin Crossmatch 11/01/19 11/02/19 11/02/19 18:18 03:40 03:40 WBC RBC 2.36 L Hgb 7.2 L Hct 20.8 L D MCV MCH MCHC 35 H RDW 16.8 H Plt Count Lymph % (Auto) [place] % (Auto) Lymph # [place] # Seg Neutrophils % Seg Neuts % (Manual) Lymphocytes % (Manual) Seg Neutrophils # Seg Neutrophils # Man Lymphocytes # (Manual) Monocytes # (Manual) POC ABG pH ABG pH POC ABG pCO2 POC ABG pO2 ABG pO2 ABG HCO3 ABG Base Excess ABG Hemoglobin Oxyhemoglobin Sodium 157 H D Potassium 3.0 L D Chloride 117.2 H Carbon Dioxide BUN 23 H Creatinine 0.6 L Glucose 101 H POC Glucose 120 H Calcium 6.4 L D Phosphorus Magnesium Direct Bilirubin AST Alkaline Phosphatase C-Reactive Protein Serum Total Protein Total Protein Albumin Prealbumin Dhwke-8-Sfrowzowd Fhlrz-2-Alerldbpg Gamma Globulins PEP Interpretation Triglycerides Urine pH Urine Creatinine Urine Total Protein Vancomycin Trough Digoxin Crossmatch 11/02/19 11/02/19 11/02/19 04:48 05:30 12:43 WBC RBC Hgb Hct MCV MCH MCHC RDW Plt Count Lymph % (Auto) [place] % (Auto) Lymph # [place] # Seg Neutrophils % Seg Neuts % (Manual) Lymphocytes % (Manual) Seg Neutrophils # Seg Neutrophils # Man Lymphocytes # (Manual) Monocytes # (Manual) POC ABG pH ABG pH POC ABG pCO2 50.1 H POC ABG pO2 74 L ABG pO2 ABG HCO3 ABG Base Excess ABG Hemoglobin Oxyhemoglobin Sodium 149 H D Potassium Chloride 110.0 H Carbon Dioxide BUN 23 H Creatinine 0.6 L Glucose POC Glucose 109 H Calcium 8.1 L D Phosphorus Magnesium 2.40 H Direct Bilirubin AST Alkaline Phosphatase C-Reactive Protein Serum Total Protein Total Protein Albumin Prealbumin Vhjhl-7-Icndvndqc [place]ora-3-Cxyiadvbg Gamma Globulins PEP Interpretation Triglycerides Urine pH Urine Creatinine Urine Total Protein Vancomycin Trough Digoxin Crossmatch 11/03/19 11/03/19 11/03/19 03:42 03:42 04:13 WBC RBC 2.93 L Hgb 8.5 L Hct 25.8 L MCV MCH MCHC RDW 16.9 H Plt Count Lymph % (Auto) [place] % (Auto) Lymph # [place] # Seg Neutrophils % Seg Neuts % (Manual) Lymphocytes % (Manual) Seg Neutrophils # Seg Neutrophils # Man Lymphocytes # (Manual) Monocytes # (Manual) POC ABG pH 7.540 H ABG pH POC ABG pCO2 POC ABG pO2 51 L ABG pO2 ABG HCO3 ABG Base Excess ABG Hemoglobin Oxyhemoglobin Sodium 147 H Potassium 3.5 L D Chloride 108.6 H Carbon Dioxide BUN Creatinine 0.6 L Glucose 109 H POC Glucose Calcium 8.3 L Phosphorus Magnesium Direct Bilirubin AST Alkaline Phosphatase C-Reactive Protein Serum Total Protein Total Protein Albumin Prealbumin Qmyps-3-Brtugskpi Jklde-8-Nyvndooey Gamma Globulins PEP Interpretation Triglycerides Urine pH Urine Creatinine Urine Total Protein Vancomycin Trough Digoxin Crossmatch 11/03/19 11/03/19 11/03/19 04:28 12:04 23:02 WBC RBC Hgb Hct MCV MCH MCHC RDW Plt Count Lymph % (Auto) [place] % (Auto) Lymph # [place] # Seg Neutrophils % Seg Neuts % (Manual) Lymphocytes % (Manual) Seg Neutrophils # Seg Neutrophils # Man Lymphocytes # (Manual) Monocytes # (Manual) POC ABG pH ABG pH POC ABG pCO2 45.4 H POC ABG pO2 ABG pO2 ABG HCO3 ABG Base Excess ABG Hemoglobin Oxyhemoglobin Sodium Potassium Chloride Carbon Dioxide BUN Creatinine Glucose POC Glucose 109 H 111 H Calcium Phosphorus Magnesium Direct Bilirubin AST Alkaline Phosphatase C-Reactive Protein Serum Total Protein Total Protein Albumin Prealbumin Zmdts-6-Iwbbllcxe Ykczj-0-Pkjfwrvzz Gamma Globulins PEP Interpretation Triglycerides Urine pH Urine Creatinine Urine Total Protein Vancomycin Trough Digoxin Crossmatch 11/04/19 11/04/19 11/04/19 05:00 05:00 05:19 WBC RBC 2.96 L Hgb 8.6 L Hct 25.5 L MCV MCH MCHC RDW 16.7 H Plt Count Lymph % (Auto) [place] % (Auto) Lymph # [place] # Seg Neutrophils % Seg Neuts % (Manual) Lymphocytes % (Manual) Seg Neutrophils # Seg Neutrophils # Man Lymphocytes # (Manual) Monocytes # (Manual) POC ABG pH ABG pH POC ABG pCO2 POC ABG pO2 ABG pO2 ABG HCO3 ABG Base Excess ABG Hemoglobin Oxyhemoglobin Sodium Potassium 3.5 L Chloride Carbon Dioxide BUN Creatinine 0.5 L Glucose 111 H POC Glucose 106 H Calcium 8.1 L Phosphorus Magnesium Direct Bilirubin AST Alkaline Phosphatase C-Reactive Protein Serum Total Protein Total Protein Albumin Prealbumin Yjabd-9-Xvrjhazfc Dzekh-3-Meayuhupz Gamma Globulins PEP Interpretation Triglycerides Urine pH Urine Creatinine Urine Total Protein Vancomycin Trough Digoxin Crossmatch 11/04/19 11/05/19 11/05/19 12:40 00:28 04:19 WBC 12.4 H RBC 2.98 L Hgb 8.5 L Hct 25.5 L MCV MCH MCHC RDW 16.6 H Plt Count Lymph % (Auto) [place] % (Auto) Lymph # [place] # Seg Neutrophils % Seg Neuts % (Manual) Lymphocytes % (Manual) Seg Neutrophils # Seg Neutrophils # Man Lymphocytes # (Manual) Monocytes # (Manual) POC ABG pH ABG pH POC ABG pCO2 POC ABG pO2 ABG pO2 ABG HCO3 ABG Base Excess ABG Hemoglobin Oxyhemoglobin Sodium Potassium Chloride Carbon Dioxide BUN Creatinine Glucose POC Glucose 109 H 132 H Calcium Phosphorus Magnesium Direct Bilirubin AST Alkaline Phosphatase C-Reactive Protein Serum Total Protein Total Protein Albumin Prealbumin Bwcwg-1-Hkqyvphdm Qejwr-6-Ckegmqnxr Gamma Globulins PEP Interpretation Triglycerides Urine pH Urine Creatinine Urine Total Protein Vancomycin Trough Digoxin Crossmatch 11/05/19 11/05/19 11/05/19 04:19 05:40 13:14 WBC RBC Hgb Hct MCV MCH MCHC RDW Plt Count Lymph % (Auto) [place] % (Auto) Lymph # [place] # Seg Neutrophils % Seg Neuts % (Manual) Lymphocytes % (Manual) Seg Neutrophils # Seg Neutrophils # Man Lymphocytes # (Manual) Monocytes # (Manual) POC ABG pH ABG pH POC ABG pCO2 POC ABG pO2 ABG pO2 ABG HCO3 ABG Base Excess ABG Hemoglobin Oxyhemoglobin Sodium Potassium 3.4 L Chloride Carbon Dioxide BUN Creatinine 0.4 L Glucose 106 H POC Glucose 136 H 145 H Calcium 8.2 L Phosphorus Magnesium Direct Bilirubin AST Alkaline Phosphatase C-Reactive Protein Serum Total Protein Total Protein Albumin Prealbumin Vxwaq-1-Bgfyunzaq Kjvtd-3-Vhzhdgyev Gamma Globulins PEP Interpretation Triglycerides Urine pH Urine Creatinine Urine Total Protein Vancomycin Trough Digoxin Crossmatch 11/05/19 11/05/19 11/06/19 18:29 23:42 05:00 WBC 12.2 H RBC 2.89 L Hgb 8.2 L Hct 24.9 L MCV MCH MCHC RDW 16.4 H Plt Count Lymph % (Auto) [place] % (Auto) Lymph # [place] # Seg Neutrophils % Seg Neuts % (Manual) Lymphocytes % (Manual) Seg Neutrophils # Seg Neutrophils # Man Lymphocytes # (Manual) Monocytes # (Manual) POC ABG pH ABG pH POC ABG pCO2 POC ABG pO2 ABG pO2 ABG HCO3 ABG Base Excess ABG Hemoglobin Oxyhemoglobin Sodium Potassium Chloride Carbon Dioxide BUN Creatinine Glucose POC Glucose 138 H 117 H Calcium Phosphorus Magnesium Direct Bilirubin AST Alkaline Phosphatase C-Reactive Protein Serum Total Protein Total Protein Albumin Prealbumin Bmiej-1-Gyiapvogd Wdwjs-3-Owlewnywg Gamma Globulins PEP Interpretation Triglycerides Urine pH Urine Creatinine Urine Total Protein Vancomycin Trough Digoxin Crossmatch 11/06/19 11/06/19 11/06/19 05:00 05:22 17:39 WBC RBC Hgb Hct MCV MCH MCHC RDW Plt Count Lymph % (Auto) [place] % (Auto) Lymph # [place] # Seg Neutrophils % Seg Neuts % (Manual) Lymphocytes % (Manual) Seg Neutrophils # Seg Neutrophils # Man Lymphocytes # (Manual) Monocytes # (Manual) POC ABG pH ABG pH POC ABG pCO2 POC ABG pO2 ABG pO2 ABG HCO3 ABG Base Excess ABG Hemoglobin Oxyhemoglobin Sodium Potassium Chloride Carbon Dioxide BUN Creatinine 0.4 L Glucose 114 H POC Glucose 121 H 110 H Calcium 8.2 L Phosphorus Magnesium Direct Bilirubin AST Alkaline Phosphatase C-Reactive Protein Serum Total Protein Total Protein Albumin Prealbumin Xrtcq-8-Hlbkepndp Cxgko-7-Owblepjja Gamma Globulins PEP Interpretation Triglycerides Urine pH Urine Creatinine Urine Total Protein Vancomycin Trough Digoxin Crossmatch 11/06/19 11/07/19 11/07/19 23:29 04:06 04:06 WBC 13.0 H RBC 2.80 L Hgb 7.9 L Hct 24.0 L MCV MCH MCHC RDW 16.5 H Plt Count Lymph % (Auto) 7.0 L [place] % (Auto) Lymph # 0.9 L [place] # Seg Neutrophils % 86.3 H Seg Neuts % (Manual) Lymphocytes % (Manual) Seg Neutrophils # 11.2 H Seg Neutrophils # Man Lymphocytes # (Manual) Monocytes # (Manual) POC ABG pH ABG pH POC ABG pCO2 POC ABG pO2 ABG pO2 ABG HCO3 ABG Base Excess ABG Hemoglobin Oxyhemoglobin Sodium Potassium Chloride Carbon Dioxide BUN Creatinine 0.4 L Glucose 110 H POC Glucose 113 H Calcium 8.2 L Phosphorus Magnesium Direct Bilirubin AST Alkaline Phosphatase C-Reactive Protein Serum Total Protein Total Protein Albumin Prealbumin Lqkwh-2-Tsovoeuuj Fooze-4-Mmfklgttt Gamma Globulins PEP Interpretation Triglycerides Urine pH Urine Creatinine Urine Total Protein Vancomycin Trough Digoxin Crossmatch 11/07/19 11/07/19 11/07/19 05:43 12:47 18:19 WBC RBC Hgb Hct MCV MCH MCHC RDW Plt Count Lymph % (Auto) [place] % (Auto) Lymph # [place] # Seg Neutrophils % Seg Neuts % (Manual) Lymphocytes % (Manual) Seg Neutrophils # Seg Neutrophils # Man Lymphocytes # (Manual) Monocytes # (Manual) POC ABG pH ABG pH POC ABG pCO2 POC ABG pO2 ABG pO2 ABG HCO3 ABG Base Excess ABG Hemoglobin Oxyhemoglobin Sodium Potassium Chloride Carbon Dioxide BUN Creatinine Glucose POC Glucose 114 H 120 H 112 H Calcium Phosphorus Magnesium Direct Bilirubin AST Alkaline Phosphatase C-Reactive Protein Serum Total Protein Total Protein Albumin Prealbumin Rgecx-5-Fspeoyguq Wtsmf-4-Zfzrvbjjp Gamma Globulins PEP Interpretation Triglycerides Urine pH Urine Creatinine Urine Total Protein Vancomycin Trough Digoxin Crossmatch 11/08/19 11/08/19 11/08/19 03:45 03:45 11:43 WBC 12.7 H RBC 2.82 L Hgb 7.8 L Hct 24.4 L MCV MCH MCHC RDW 16.5 H Plt Count Lymph % (Auto) 9.4 L [place] % (Auto) Lymph # [place] # 0.9 H Seg Neutrophils % 83.0 H Seg Neuts % (Manual) Lymphocytes % (Manual) Seg Neutrophils # 10.6 H Seg Neutrophils # Man Lymphocytes # (Manual) Monocytes # (Manual) POC ABG pH ABG pH POC ABG pCO2 POC ABG pO2 ABG pO2 ABG HCO3 ABG Base Excess ABG Hemoglobin Oxyhemoglobin Sodium Potassium Chloride Carbon Dioxide BUN Creatinine 0.4 L Glucose 107 H POC Glucose 118 H Calcium Phosphorus Magnesium Direct Bilirubin AST Alkaline Phosphatase C-Reactive Protein Serum Total Protein Total Protein Albumin Prealbumin Sigze-1-Przpnacen Ditse-8-Ciqpwkzov Gamma Globulins PEP Interpretation Triglycerides Urine pH Urine Creatinine Urine Total Protein Vancomycin Trough Digoxin Crossmatch 11/08/19 11/09/19 11/09/19 23:45 12:41 12:56 WBC RBC Hgb Hct MCV MCH MCHC RDW Plt Count Lymph % (Auto) [place] % (Auto) Lymph # [place] # Seg Neutrophils % Seg Neuts % (Manual) Lymphocytes % (Manual) Seg Neutrophils # Seg Neutrophils # Man Lymphocytes # (Manual) Monocytes # (Manual) POC ABG pH ABG pH POC ABG pCO2 POC ABG pO2 ABG pO2 ABG HCO3 ABG Base Excess ABG Hemoglobin Oxyhemoglobin Sodium Potassium Chloride Carbon Dioxide BUN Creatinine Glucose POC Glucose 113 H 107 H 122 H Calcium Phosphorus Magnesium Direct Bilirubin AST Alkaline Phosphatase C-Reactive Protein Serum Total Protein Total Protein Albumin Prealbumin Hxwgu-6-Nrhksamvy Jiudx-7-Pollmzjbh Gamma Globulins PEP Interpretation Triglycerides Urine pH Urine Creatinine Urine Total Protein Vancomycin Trough Digoxin Crossmatch 11/10/19 11/10/19 11/11/19 05:12 12:20 12:13 WBC RBC Hgb Hct MCV MCH MCHC RDW Plt Count Lymph % (Auto) [place] % (Auto) Lymph # [place] # Seg Neutrophils % Seg Neuts % (Manual) Lymphocytes % (Manual) Seg Neutrophils # Seg Neutrophils # Man Lymphocytes # (Manual) Monocytes # (Manual) POC ABG pH ABG pH POC ABG pCO2 POC ABG pO2 ABG pO2 ABG HCO3 ABG Base Excess ABG Hemoglobin Oxyhemoglobin Sodium Potassium Chloride Carbon Dioxide BUN Creatinine Glucose POC Glucose 127 H 125 H 107 H Calcium Phosphorus Magnesium Direct Bilirubin AST Alkaline Phosphatase C-Reactive Protein Serum Total Protein Total Protein Albumin Prealbumin Xyzpr-1-Afehxnmqv Xgfvy-4-Fvjcullcn Gamma Globulins PEP Interpretation Triglycerides Urine pH Urine Creatinine Urine Total Protein Vancomycin Trough Digoxin Crossmatch 11/11/19 11/11/19 11/12/19 17:29 22:20 06:00 WBC RBC 2.77 L Hgb 7.8 L Hct 23.4 L MCV MCH MCHC RDW 16.6 H Plt Count Lymph % (Auto) 11.9 L [place] % (Auto) 8.9 H Lymph # [place] # 0.9 H Seg Neutrophils % 78.2 H Seg Neuts % (Manual) Lymphocytes % (Manual) Seg Neutrophils # 8.2 H Seg Neutrophils # Man Lymphocytes # (Manual) Monocytes # (Manual) POC ABG pH ABG pH POC ABG pCO2 POC ABG pO2 ABG pO2 ABG HCO3 ABG Base Excess ABG Hemoglobin Oxyhemoglobin Sodium Potassium Chloride Carbon Dioxide BUN Creatinine Glucose POC Glucose 120 H 109 H Calcium Phosphorus Magnesium Direct Bilirubin AST Alkaline Phosphatase C-Reactive Protein Serum Total Protein Total Protein Albumin Prealbumin Xljpb-6-Tqhhgnipn Feqqi-2-Dbfvsbfcy Gamma Globulins PEP Interpretation Triglycerides Urine pH Urine Creatinine Urine Total Protein Vancomycin Trough Digoxin Crossmatch 11/12/19 11/12/19 11/12/19 07:52 11:58 23:44 WBC RBC Hgb Hct MCV MCH MCHC RDW Plt Count Lymph % (Auto) [place] % (Auto) Lymph # [place] # Seg Neutrophils % Seg Neuts % (Manual) Lymphocytes % (Manual) Seg Neutrophils # Seg Neutrophils # Man Lymphocytes # (Manual) Monocytes # (Manual) POC ABG pH ABG pH POC ABG pCO2 POC ABG pO2 ABG pO2 ABG HCO3 ABG Base Excess ABG Hemoglobin Oxyhemoglobin Sodium Potassium Chloride Carbon Dioxide BUN Creatinine Glucose POC Glucose 120 H 140 H 116 H Calcium Phosphorus Magnesium Direct Bilirubin AST Alkaline Phosphatase C-Reactive Protein Serum Total Protein Total Protein Albumin Prealbumin Feobo-8-Yuokcaxuo Bewzc-4-Tjecjtdyv Gamma Globulins PEP Interpretation Triglycerides Urine pH Urine Creatinine Urine Total Protein Vancomycin Trough Digoxin Crossmatch 11/13/19 11/13/19 11/13/19 04:33 04:33 13:43 WBC 11.2 H RBC 2.90 L Hgb 8.1 L Hct 24.5 L MCV MCH MCHC RDW 16.5 H Plt Count Lymph % (Auto) 10.1 L [place] % (Auto) 7.6 H Lymph # 1.1 L [place] # 0.9 H Seg Neutrophils % 81.1 H Seg Neuts % (Manual) Lymphocytes % (Manual) Seg Neutrophils # 9.1 H Seg Neutrophils # Man Lymphocytes # (Manual) Monocytes # (Manual) POC ABG pH ABG pH POC ABG pCO2 POC ABG pO2 ABG pO2 ABG HCO3 ABG Base Excess ABG Hemoglobin Oxyhemoglobin Sodium 135 L Potassium Chloride 91.9 L Carbon Dioxide BUN Creatinine 0.6 L Glucose POC Glucose 122 H Calcium Phosphorus Magnesium Direct Bilirubin AST Alkaline Phosphatase C-Reactive Protein Serum Total Protein Total Protein Albumin Prealbumin Wcodo-5-Zhyjsxoew Zvnfi-0-Olwzitvcy Gamma Globulins PEP Interpretation Triglycerides Urine pH Urine Creatinine Urine Total Protein Vancomycin Trough Digoxin Crossmatch 11/13/19 11/14/19 11/15/19 17:57 12:35 07:10 WBC 14.8 H RBC 2.89 L Hgb 7.8 L Hct 24.2 L MCV MCH 27 L MCHC RDW 16.9 H Plt Count Lymph % (Auto) [place] % (Auto) Lymph # [place] # Seg Neutrophils % Seg Neuts % (Manual) Lymphocytes % (Manual) Seg Neutrophils # Seg Neutrophils # Man Lymphocytes # (Manual) Monocytes # (Manual) POC ABG pH ABG pH POC ABG pCO2 POC ABG pO2 ABG pO2 ABG HCO3 ABG Base Excess ABG Hemoglobin Oxyhemoglobin Sodium Potassium Chloride Carbon Dioxide BUN Creatinine Glucose POC Glucose 127 H 148 H Calcium Phosphorus Magnesium Direct Bilirubin AST Alkaline Phosphatase C-Reactive Protein Serum Total Protein Total Protein Albumin Prealbumin Slcob-2-Akpijoxmx Vbdmg-7-Hxzvkhoiq Gamma Globulins PEP Interpretation Triglycerides Urine pH Urine Creatinine Urine Total Protein Vancomycin Trough Digoxin Crossmatch 11/15/19 11/15/19 11/16/19 07:10 20:16 10:26 WBC 14.4 H RBC 2.79 L Hgb 7.6 L Hct 23.5 L MCV MCH 27 L MCHC RDW 17.0 H Plt Count Lymph % (Auto) [place] % (Auto) Lymph # [place] # Seg Neutrophils % Seg Neuts % (Manual) Lymphocytes % (Manual) Seg Neutrophils # Seg Neutrophils # Man Lymphocytes # (Manual) Monocytes # (Manual) POC ABG pH ABG pH POC ABG pCO2 POC ABG pO2 ABG pO2 ABG HCO3 ABG Base Excess ABG Hemoglobin Oxyhemoglobin Sodium 133 L 136 L Potassium 3.5 L Chloride 93.7 L 97.4 L Carbon Dioxide BUN Creatinine 0.6 L 0.6 L Glucose 130 H POC Glucose Calcium Phosphorus Magnesium Direct Bilirubin AST Alkaline Phosphatase C-Reactive Protein Serum Total Protein Total Protein Albumin Prealbumin Noneb-9-Rhzazszcr Otnyd-9-Bvufuiqjn Gamma Globulins PEP Interpretation Triglycerides Urine pH Urine Creatinine Urine Total Protein Vancomycin Trough Digoxin Crossmatch 11/16/19 11/17/19 11/17/19 13:01 00:40 07:22 WBC 14.0 H RBC 2.71 L Hgb 7.4 L Hct 22.8 L MCV MCH 27 L MCHC RDW 17.2 H Plt Count Lymph % (Auto) [place] % (Auto) Lymph # [place] # Seg Neutrophils % Seg Neuts % (Manual) Lymphocytes % (Manual) Seg Neutrophils # Seg Neutrophils # Man Lymphocytes # (Manual) Monocytes # (Manual) POC ABG pH ABG pH POC ABG pCO2 POC ABG pO2 ABG pO2 ABG HCO3 ABG Base Excess ABG Hemoglobin Oxyhemoglobin Sodium Potassium Chloride Carbon Dioxide BUN Creatinine Glucose POC Glucose 117 H 124 H Calcium Phosphorus Magnesium Direct Bilirubin AST Alkaline Phosphatase C-Reactive Protein Serum Total Protein Total Protein Albumin Prealbumin Fvrjt-7-Uaxdchjdn Iekex-6-Qrjucbcxz Gamma Globulins PEP Interpretation Triglycerides Urine pH Urine Creatinine Urine Total Protein Vancomycin Trough Digoxin Crossmatch 11/17/19 11/17/19 11/17/19 07:22 12:00 17:57 WBC RBC Hgb Hct MCV MCH MCHC RDW Plt Count Lymph % (Auto) [place] % (Auto) Lymph # [place] # Seg Neutrophils % Seg Neuts % (Manual) Lymphocytes % (Manual) Seg Neutrophils # Seg Neutrophils # Man Lymphocytes # (Manual) Monocytes # (Manual) POC ABG pH ABG pH POC ABG pCO2 POC ABG pO2 ABG pO2 ABG HCO3 ABG Base Excess ABG Hemoglobin Oxyhemoglobin Sodium 136 L Potassium Chloride 96.1 L Carbon Dioxide BUN 7 L Creatinine 0.5 L Glucose POC Glucose 130 H 111 H Calcium Phosphorus Magnesium Direct Bilirubin AST Alkaline Phosphatase C-Reactive Protein Serum Total Protein Total Protein Albumin Prealbumin Xvnep-7-Xzktgauup Cimde-4-Wivlfcdhc Gamma Globulins PEP Interpretation Triglycerides Urine pH Urine Creatinine Urine Total Protein Vancomycin Trough Digoxin Crossmatch 11/18/19 11/18/19 11/18/19 06:03 12:12 17:54 WBC RBC Hgb Hct MCV MCH MCHC RDW Plt Count Lymph % (Auto) [place] % (Auto) Lymph # [place] # Seg Neutrophils % Seg Neuts % (Manual) Lymphocytes % (Manual) Seg Neutrophils # Seg Neutrophils # Man Lymphocytes # (Manual) Monocytes # (Manual) POC ABG pH ABG pH POC ABG pCO2 POC ABG pO2 ABG pO2 ABG HCO3 ABG Base Excess ABG Hemoglobin Oxyhemoglobin Sodium Potassium Chloride Carbon Dioxide BUN Creatinine Glucose POC Glucose 113 H 124 H 128 H Calcium Phosphorus Magnesium Direct Bilirubin AST Alkaline Phosphatase C-Reactive Protein Serum Total Protein Total Protein Albumin Prealbumin Exdvq-9-Amogaywrx Ttezd-8-Gtiuedixu Gamma Globulins PEP Interpretation Triglycerides Urine pH Urine Creatinine Urine Total Protein Vancomycin Trough Digoxin Crossmatch 11/19/19 11/19/19 11/20/19 00:54 08:03 11:31 WBC RBC Hgb Hct MCV MCH MCHC RDW Plt Count Lymph % (Auto) [place] % (Auto) Lymph # [place] # Seg Neutrophils % Seg Neuts % (Manual) Lymphocytes % (Manual) Seg Neutrophils # Seg Neutrophils # Man Lymphocytes # (Manual) Monocytes # (Manual) POC ABG pH ABG pH POC ABG pCO2 POC ABG pO2 ABG pO2 ABG HCO3 ABG Base Excess ABG Hemoglobin Oxyhemoglobin Sodium Potassium Chloride Carbon Dioxide BUN Creatinine Glucose POC Glucose 130 H 122 H 136 H Calcium Phosphorus Magnesium Direct Bilirubin AST Alkaline Phosphatase C-Reactive Protein Serum Total Protein Total Protein Albumin Prealbumin Ohpwp-6-Cpuythvzk Hiyjx-7-Rjevhtnvg Gamma Globulins PEP Interpretation Triglycerides Urine pH Urine Creatinine Urine Total Protein Vancomycin Trough Digoxin Crossmatch 01/06/0211/20/19 11/20/19 17:17 Unknown Unknown WBC 17.8 H RBC 2.70 L Hgb 7.3 L Hct 22.5 L MCV 83 L MCH 27 L MCHC RDW 17.0 H Plt Count Lymph % (Auto) [place] % (Auto) Lymph # [place] # Seg Neutrophils % Seg Neuts % (Manual) Lymphocytes % (Manual) Seg Neutrophils # Seg Neutrophils # Man Lymphocytes # (Manual) Monocytes # (Manual) POC ABG pH ABG pH POC ABG pCO2 POC ABG pO2 ABG pO2 ABG HCO3 ABG Base Excess ABG Hemoglobin Oxyhemoglobin Sodium 132 L Potassium 3.5 L Chloride 95.4 L Carbon Dioxide 21 L BUN Creatinine 0.6 L Glucose 108 H POC Glucose 126 H Calcium Phosphorus Magnesium Direct Bilirubin AST Alkaline Phosphatase C-Reactive Protein Serum Total Protein Total Protein Albumin Prealbumin Nuhpu-6-Uxaembazp Chpaa-8-Wmocyfmjz Gamma Globulins PEP Interpretation Triglycerides Urine pH Urine Creatinine Urine Total Protein Vancomycin Trough Digoxin Crossmatch 11/21/19 11/21/19 11/21/19 07:40 07:40 12:29 WBC 15.1 H RBC 2.61 L Hgb 7.0 L Hct 21.5 L MCV 82 L MCH 27 L MCHC RDW 17.0 H Plt Count Lymph % (Auto) 9.0 L [place] % (Auto) 7.7 H Lymph # [place] # 1.2 H Seg Neutrophils % 81.5 H Seg Neuts % (Manual) Lymphocytes % (Manual) Seg Neutrophils # 12.3 H Seg Neutrophils # Man Lymphocytes # (Manual) Monocytes # (Manual) POC ABG pH ABG pH POC ABG pCO2 POC ABG pO2 ABG pO2 ABG HCO3 ABG Base Excess ABG Hemoglobin Oxyhemoglobin Sodium Potassium Chloride Carbon Dioxide BUN Creatinine 0.5 L Glucose POC Glucose 118 H Calcium Phosphorus Magnesium Direct Bilirubin AST Alkaline Phosphatase C-Reactive Protein Serum Total Protein Total Protein Albumin Prealbumin Hxfsh-9-Ertxtpgfn Oohig-3-Nckhaauid Gamma Globulins PEP Interpretation Triglycerides Urine pH Urine Creatinine Urine Total Protein Vancomycin Trough Digoxin Crossmatch 11/21/19 11/22/19 11/23/19 13:32 08:13 11:48 WBC 13.7 H RBC 2.99 L Hgb 8.2 L Hct 24.7 L MCV 83 L MCH 27 L MCHC RDW 16.5 H Plt Count Lymph % (Auto) 7.8 L [place] % (Auto) 7.5 H Lymph # 1.1 L [place] # 1.0 H Seg Neutrophils % 83.3 H Seg Neuts % (Manual) Lymphocytes % (Manual) Seg Neutrophils # 11.4 H Seg Neutrophils # Man Lymphocytes # (Manual) Monocytes # (Manual) POC ABG pH ABG pH POC ABG pCO2 POC ABG pO2 ABG pO2 ABG HCO3 ABG Base Excess ABG Hemoglobin Oxyhemoglobin Sodium Potassium Chloride Carbon Dioxide BUN Creatinine Glucose POC Glucose 159 H Calcium Phosphorus Magnesium Direct Bilirubin AST Alkaline Phosphatase C-Reactive Protein Serum Total Protein Total Protein Albumin Prealbumin Nyvmm-1-Crfkeldgy Epnbl-4-Vobuktims Gamma Globulins PEP Interpretation Triglycerides Urine pH Urine Creatinine Urine Total Protein Vancomycin Trough Digoxin Crossmatch See Detail 11/23/19 11/24/19 11/24/19 16:41 17:19 17:55 WBC 12.5 H RBC 2.94 L Hgb 8.0 L Hct 24.0 L MCV 82 L MCH 27 L MCHC RDW 16.4 H Plt Count Lymph % (Auto) [place] % (Auto) Lymph # [place] # Seg Neutrophils % Seg Neuts % (Manual) Lymphocytes % (Manual) Seg Neutrophils # Seg Neutrophils # Man Lymphocytes # (Manual) Monocytes # (Manual) POC ABG pH ABG pH POC ABG pCO2 POC ABG pO2 ABG pO2 ABG HCO3 ABG Base Excess ABG Hemoglobin Oxyhemoglobin Sodium Potassium Chloride Carbon Dioxide BUN Creatinine Glucose POC Glucose 131 H 127 H Calcium Phosphorus Magnesium Direct Bilirubin AST Alkaline Phosphatase C-Reactive Protein Serum Total Protein Total Protein Albumin Prealbumin Wzyha-9-Vynzrwala Qmqvs-2-Jjbentdzk Gamma Globulins PEP Interpretation Triglycerides Urine pH Urine Creatinine Urine Total Protein Vancomycin Trough Digoxin Crossmatch 11/24/19 11/25/19 11/25/19 17:55 07:23 07:23 WBC 13.6 H RBC 3.03 L Hgb 8.2 L Hct 24.6 L MCV 81 L MCH 27 L MCHC RDW 16.8 H Plt Count 441 H Lymph % (Auto) 10.3 L [place] % (Auto) Lymph # [place] # 0.9 H Seg Neutrophils % 81.2 H Seg Neuts % (Manual) Lymphocytes % (Manual) Seg Neutrophils # 11.1 H Seg Neutrophils # Man Lymphocytes # (Manual) Monocytes # (Manual) POC ABG pH ABG pH POC ABG pCO2 POC ABG pO2 ABG pO2 ABG HCO3 ABG Base Excess ABG Hemoglobin Oxyhemoglobin Sodium 135 L Potassium 3.3 L 3.4 L Chloride 97.3 L 95.0 L Carbon Dioxide BUN 7 L 5 L Creatinine 0.5 L 0.4 L Glucose 107 H POC Glucose Calcium Phosphorus Magnesium Direct Bilirubin AST Alkaline Phosphatase C-Reactive Protein Serum Total Protein Total Protein Albumin Prealbumin Krwjk-8-Nwmtmpwfx Rdnyl-5-Vfkujtjsp Gamma Globulins PEP Interpretation Triglycerides Urine pH Urine Creatinine Urine Total Protein Vancomycin Trough Digoxin Crossmatch 11/25/19 11/26/19 11/26/19 16:58 11:35 17:46 WBC RBC Hgb Hct MCV MCH MCHC RDW Plt Count Lymph % (Auto) [place] % (Auto) Lymph # [place] # Seg Neutrophils % Seg Neuts % (Manual) Lymphocytes % (Manual) Seg Neutrophils # Seg Neutrophils # Man Lymphocytes # (Manual) Monocytes # (Manual) POC ABG pH ABG pH POC ABG pCO2 POC ABG pO2 ABG pO2 ABG HCO3 ABG Base Excess ABG Hemoglobin Oxyhemoglobin Sodium Potassium Chloride Carbon Dioxide BUN Creatinine Glucose POC Glucose 135 H 135 H 219 H Calcium Phosphorus Magnesium Direct Bilirubin AST Alkaline Phosphatase C-Reactive Protein Serum Total Protein Total Protein Albumin Prealbumin Fgmef-2-Wpxesvlea Ydvzh-1-Ywxijtljo Gamma Globulins PEP Interpretation Triglycerides Urine pH Urine Creatinine Urine Total Protein Vancomycin Trough Digoxin Crossmatch 11/27/19 11/27/19 11/27/19 12:08 17:13 23:59 WBC RBC Hgb Hct MCV MCH MCHC RDW Plt Count Lymph % (Auto) [place] % (Auto) Lymph # [place] # Seg Neutrophils % Seg Neuts % (Manual) Lymphocytes % (Manual) Seg Neutrophils # Seg Neutrophils # Man Lymphocytes # (Manual) Monocytes # (Manual) POC ABG pH ABG pH POC ABG pCO2 POC ABG pO2 ABG pO2 ABG HCO3 ABG Base Excess ABG Hemoglobin Oxyhemoglobin Sodium Potassium Chloride Carbon Dioxide BUN Creatinine Glucose POC Glucose 186 H 137 H 194 H Calcium Phosphorus Magnesium Direct Bilirubin AST Alkaline Phosphatase C-Reactive Protein Serum Total Protein Total Protein Albumin Prealbumin Pcjxn-5-Osaxuhvje Reaau-3-Vrfwoplge Gamma Globulins PEP Interpretation Triglycerides Urine pH Urine Creatinine Urine Total Protein Vancomycin Trough Digoxin Crossmatch 11/28/19 11/28/19 11/28/19 05:30 05:30 06:14 WBC 15.1 H RBC 2.97 L Hgb 8.0 L Hct 24.4 L MCV 82 L MCH 27 L MCHC RDW 17.0 H Plt Count Lymph % (Auto) 9.9 L [place] % (Auto) Lymph # [place] # 1.0 H Seg Neutrophils % 82.7 H Seg Neuts % (Manual) Lymphocytes % (Manual) Seg Neutrophils # 12.5 H Seg Neutrophils # Man Lymphocytes # (Manual) Monocytes # (Manual) POC ABG pH ABG pH POC ABG pCO2 POC ABG pO2 ABG pO2 ABG HCO3 ABG Base Excess ABG Hemoglobin Oxyhemoglobin Sodium 136 L Potassium 3.1 L Chloride 96.3 L Carbon Dioxide BUN 6 L Creatinine 0.5 L Glucose POC Glucose 116 H Calcium Phosphorus Magnesium 1.60 L Direct Bilirubin AST Alkaline Phosphatase C-Reactive Protein Serum Total Protein Total Protein 6.2 L Albumin 2.2 L Prealbumin Byqqd-6-Togdheofa Cmqzy-4-Mqcmlyttp Gamma Globulins PEP Interpretation Triglycerides Urine pH Urine Creatinine Urine Total Protein Vancomycin Trough Digoxin Crossmatch 11/28/19 11/28/19 11/29/19 08:40 17:05 07:38 WBC RBC Hgb Hct MCV MCH MCHC RDW Plt Count Lymph % (Auto) [place] % (Auto) Lymph # [place] # Seg Neutrophils % Seg Neuts % (Manual) Lymphocytes % (Manual) Seg Neutrophils # Seg Neutrophils # Man Lymphocytes # (Manual) Monocytes # (Manual) POC ABG pH ABG pH POC ABG pCO2 POC ABG pO2 ABG pO2 ABG HCO3 ABG Base Excess ABG Hemoglobin Oxyhemoglobin Sodium Potassium Chloride Carbon Dioxide BUN Creatinine Glucose POC Glucose 227 H 108 H 118 H Calcium Phosphorus Magnesium Direct Bilirubin AST Alkaline Phosphatase C-Reactive Protein Serum Total Protein Total Protein Albumin Prealbumin Nohgp-3-Hhkucyghn Eeoup-7-Zupfdrtqa Gamma Globulins PEP Interpretation Triglycerides Urine pH Urine Creatinine Urine Total Protein Vancomycin Trough Digoxin Crossmatch 11/29/19 11/30/19 11/30/19 12:00 07:08 07:08 WBC 14.9 H RBC 3.11 L Hgb 8.4 L Hct 25.1 L MCV 81 L MCH 27 L MCHC RDW 17.3 H Plt Count 460 H Lymph % (Auto) 9.3 L [place] % (Auto) Lymph # [place] # 1.0 H Seg Neutrophils % 83.3 H Seg Neuts % (Manual) Lymphocytes % (Manual) Seg Neutrophils # 12.4 H Seg Neutrophils # Man Lymphocytes # (Manual) Monocytes # (Manual) POC ABG pH ABG pH POC ABG pCO2 POC ABG pO2 ABG pO2 ABG HCO3 ABG Base Excess ABG Hemoglobin Oxyhemoglobin Sodium 136 L Potassium 3.5 L Chloride 95.5 L Carbon Dioxide BUN 7 L Creatinine 0.5 L Glucose 74 L POC Glucose 193 H Calcium Phosphorus Magnesium Direct Bilirubin AST Alkaline Phosphatase 138 H C-Reactive Protein Serum Total Protein Total Protein Albumin 2.2 L Prealbumin Phupd-1-Tiaogymoh Wcvaz-1-Pazhrctoc Gamma Globulins PEP Interpretation Triglycerides Urine pH Urine Creatinine Urine Total Protein Vancomycin Trough Digoxin Crossmatch
--- NOTE | 2019-11-30 17:30 | Progress Note ---
Assessment and Plan - Patient Problems (1) Dehiscence of closure of fascia, superficial or muscular Current Visit: No Status: Acute Qualifiers: Encounter type: initial encounter Qualified Code(s): T81.32XA - Disruption of internal operation (surgical) wound, not elsewhere classified, initial encounter Plan to address problem: Pt stable. s/p ex lap with closure of abdominal wall and wound vac placement (10/05) - POD#56; s/p Re-exploration, washout, transection of colon, Abthera placement - 10/13 - POD#48; s/p abd washout, partial omentectomy, partial colectomy with colostomy - 10/16 POD#45; s/p abd washout, feeding tube placement, AbThera placement - 10/19 - POD#42; Abdominal washout and closure - 10/22 - POD#39 Patient appears stable. Rec: 1) Neuro - self-extubated 11/04. 2) CV - BP normal today. Appreciate hospitalist help with transfusion and adjustment BP meds. 3) Resp - On NC. Small bore CT on left - removed 11/02. 4) GI - Ostomy looks good. Functioning. Repeat CT done when showed main drain to be in good position. No obvious collection around pigtail catheter. Expect to see air in main fluid collection as catheter is open to air and is being flushed periodically to keep open. Sump drains - both are out now. Midline drain - seems to be working well. ordered to be flushed daily. Wound Help Desk Team Leader - wound looked good on last check. Need to keep catheter in wound to stent open the drainage point. Ostomy - functioning. Gastric Port - May be used as needed for feeds or meds. Will most likely remove when he is scheduled to be transferred to acute rehab. 5) - BUN/Cr stable. 6) ID - Abx per ID. None at this time. 7) Nutrition - Oral nutrition. Check prealbumin on Tuesday - result pending. Passed Speech Eval. 8) DVT prophylaxis - SCDs. Lovenox 9) Family -no family at bedside. 10) PT - will need rehab. 11) Sacral Pressure Wound - unfortunately, patient has developed a deep pressure wound. Advised patient to keep changing positions. Will debride at bedside on Tuesday with the assistance of the wound care nurse. 11) Dispo - Ok for transfer to rehab from my perspective. Await Rehab decision on acceptance. Note: Spoke with [facility] on 11/01/19 about possible transfer. They reviewed the notes that were sent and we discussed the case. They felt that they had nothing else to offer. They agreed with our management. Also agreed that another exploration should not be done. If needed, additional drains can be placed. They did suggest putting a [place] tube in the rectum to decompress that area. (That has been done). This conversation was communicated to the . Please call with questions. Subjective Date of service: 12/01/19 Patient Reports: Positive: other (patient found to have large sacral pressure wound) Objective Vital Signs - 12hr 11/30/19 11/30/19 11/30/19 08:00 08:34 09:59 Temperature 98.3 F Pulse Rate 89 Pulse Rate [ 88 Anterior Bilateral Throughout] Respiratory 18 16 Rate Respiratory 20 Rate [Anterior Bilateral Throughout] Blood Pressure 110/45 O2 Sat by Pulse 93 97 Oximetry 11/30/19 11/30/19 11/30/19 10:00 11:04 11:52 Temperature 97.7 F Pulse Rate 90 Pulse Rate [ Anterior Bilateral Throughout] Respiratory 16 20 Rate Respiratory Rate [Anterior Bilateral Throughout] Blood Pressure 111/55 O2 Sat by Pulse 94 94 Oximetry 11/30/19 11/30/19 12:04 17:20 Temperature Pulse Rate Pulse Rate [ Anterior Bilateral Throughout] Respiratory 15 16 Rate Respiratory Rate [Anterior Bilateral Throughout] Blood Pressure O2 Sat by Pulse Oximetry - General physical appearance no distress, no pain - Respiratory normal expansion, normal respiratory effort - Abdomen soft - Psychiatric oriented to time, oriented to person, oriented to place, speech is normal, memory intact - Labs 12/01/19 05:53 12/01/19 05:53 Diabetes panel 11/30/19 Range/Units 07:08 Sodium 136 L (137-145) mmol/L Potassium 3.5 L (3.6-5.0) mmol/L Chloride 95.5 L (98-107) mmol/L Carbon Dioxide 24 (22-30) mmol/L BUN 7 L (9-20) mg/dL Creatinine 0.5 L (0.8-1.5) mg/dL Glucose 74 L (75-100) mg/dL Calcium 8.7 (8.4-10.2) mg/dL AST 12 (5-40) units/L ALT 9 (7-56) units/L Alkaline Phosphatase 138 H (35-129) units/L Total Protein 6.6 (6.3-8.2) g/dL Albumin 2.2 L (3.9-5) g/dL Calcium panel 11/30/19 Range/Units 07:08 Calcium 8.7 (8.4-10.2) mg/dL Albumin 2.2 L (3.9-5) g/dL Pituitary panel 11/30/19 Range/Units 07:08 Sodium 136 L (137-145) mmol/L Potassium 3.5 L (3.6-5.0) mmol/L Chloride 95.5 L (98-107) mmol/L Carbon Dioxide 24 (22-30) mmol/L BUN 7 L (9-20) mg/dL Creatinine 0.5 L (0.8-1.5) mg/dL Glucose 74 L (75-100) mg/dL Calcium 8.7 (8.4-10.2) mg/dL Adrenal panel 11/30/19 Range/Units 07:08 Sodium 136 L (137-145) mmol/L Potassium 3.5 L (3.6-5.0) mmol/L Chloride 95.5 L (98-107) mmol/L Carbon Dioxide 24 (22-30) mmol/L BUN 7 L (9-20) mg/dL Creatinine 0.5 L (0.8-1.5) mg/dL Glucose 74 L (75-100) mg/dL Calcium 8.7 (8.4-10.2) mg/dL Total Bilirubin 0.40 (0.1-1.2) mg/dL AST 12 (5-40) units/L ALT 9 (7-56) units/L Alkaline Phosphatase 138 H (35-129) units/L Total Protein 6.6 (6.3-8.2) g/dL Albumin 2.2 L (3.9-5) g/dL - Imaging CT scan - abdomen: report reviewed, image reviewed CT Scan - head: report reviewed, image reviewed
--- NOTE | 2019-11-30 19:45 | Progress Note ---
Assessment and Plan Assessment and plan: --Left flank pain; Surgery requested CT abdomen and pelvis last night Findings noted and reviewed Management per surgery --Sepsis, improved. Completed Abx per ID. Dehiscence of closure of fascia s/p ex lap with closure of abdominal wall and wound vac placement 10/05 ; s/p Re-exploration, washout, transection of colon, Abthera placement -10/13; s/p abd washout, partial omentectomy, partial colectomy with colostomy - 10/16. s/p abd washout, feeding tube placement, AbThera placement - 10/19; Abdominal washout and closure - 10/22. Acute Respiratory failure with hypoxia -Extubated 10/25/19 -Re-intubated 10/30 -Patient self extubated morning of 11/04, now on Oxygen by NC -Multifactorial secondary to pneumonia, pneumothorax and COPD Left pneumothorax s/p chest tube placed 10/30 Resolved. Left lower lobe pneumonia -CTA chest showed left lower lobe consolidation with pleural effusion COPD -Stable -cont neb tx GUILLERMO on CKD -due to ATN due to sepsis -Resolved. -No hydronephrosis on CT Acute blood loss anemia s/p PRBCs. H&H currently stable. Acute Toxic Metabolic Encephalopathy/Delirium Tremens. Resolved. -Continue CIWA protocol due to hx of ETOH abuse, 6packs a day -Head CT scan negative for acute findings SVT, Atrial fib/flutter with RVR -treated with adenosine x1 -off amiodarone and cardizem drip. On oral amiodarone -HR currently controlled -Cardiology following Hx of Hypertension -Stable Hyperlipidemia -stable Atypical chest pain -probably secondary to pneumonitis -troponin levels neg Hx of OR/CAD -s/p PCI of the circumflex and second vessel POBA of the distal LAD occlusion. Left ventricle fraction of 45-50%. Moderate Protein calorie malnutrition -Nutrition following Tobacco abuse -Cessation recommended Morbid obesity with BMI of 43.4 -Lifestyle modification recommended DVT and GI ppx: Lovenox/PPI Disposition. Patient is stable, awaiting acute rehabilitation placement History Interval history: Patient seen and examined this morning medical records reviewed Patient is very anxious to be discharged home Surgery cleared for discharge and acute rehab placement Awaiting authorization from insurance Patient complains of some flank pain Vital signs noted Hospitalist Physical - Constitutional Vitals: Temp Pulse Resp BP Pulse Ox 98.2 F 102 H 16 105/53 94 11/30/19 16:27 11/30/19 16:27 11/30/19 17:20 11/30/19 16:27 11/30/19 16:27 General appearance: Present: no acute distress, obese - EENT Eyes: Present: PERRL, EOM intact - Neck Neck: Present: supple, normal ROM - Respiratory Respiratory effort: normal Respiratory: bilateral: diminished, negative: rales, rhonchi, wheezing - Cardiovascular Rhythm: regular Heart Sounds: Present: S1 & S2 - Extremities Extremities: no ischemia, No edema - Abdominal General gastrointestinal: soft, non-tender, non-distended, normal bowel sounds - Integumentary Integumentary: Present: clear, warm - Psychiatric Psychiatric: appropriate mood/affect, cooperative - Neurologic Neurologic: moves all extremities KEATON score - Keaton Score Age > 65: (0) No Aspirin use within the Past 7 Days: (0) No 3 or more CAD Risk Factors: (1) Yes 2 or more Angina events in past 24 hrs: (1) Yes Known CAD with more than 50% Stenosis: (0) No Elevated Cardiac Markers: (0) No ST Deviation Greater than 0.5mm: (1) Yes KEATON Score: 3 Results - Labs CBC & Chem 7: 12/01/19 05:53 12/01/19 05:53 Labs: Laboratory Last Values WBC 14.9 K/mm3 (4.5-11.0) H 11/30/19 07:08 RBC 3.11 M/mm3 (3.65-5.03) L 11/30/19 07:08 Hgb 8.4 gm/dl (11.8-15.2) L 11/30/19 07:08 Hct 25.1 % (35.5-45.6) L 11/30/19 07:08 MCV 81 fl (84-94) L 11/30/19 07:08 MCH 27 pg (28-32) L 11/30/19 07:08 MCHC 33 % (32-34) 11/30/19 07:08 RDW 17.3 % (13.2-15.2) H 11/30/19 07:08 Plt Count 460 K/mm3 (140-440) H 11/30/19 07:08 Lymph % (Auto) 9.3 % (13.4-35.0) L 11/30/19 07:08 [place] % (Auto) 7.0 % (0.0-7.3) 11/30/19 07:08 Eos % (Auto) 0.2 % (0.0-4.3) 11/30/19 07:08 Baso % (Auto) 0.2 % (0.0-1.8) 11/30/19 07:08 Lymph # 1.4 K/mm3 (1.2-5.4) 11/30/19 07:08 [place] # 1.0 K/mm3 (0.0-0.8) H 11/30/19 07:08 Eos # 0.0 K/mm3 (0.0-0.4) 11/30/19 07:08 Baso # 0.0 K/mm3 (0.0-0.1) 11/30/19 07:08 Add Manual Diff Complete 10/16/19 09:20 Total Counted 100 10/16/19 09:20 Seg Neutrophils % 83.3 % (40.0-70.0) H 11/30/19 07:08 Seg Neuts % (Manual) 79.0 % (40.0-70.0) H 10/16/19 09:20 Band Neutrophils % 12.0 % 10/16/19 09:20 Lymphocytes % (Manual) 4.0 % (13.4-35.0) L 10/16/19 09:20 Reactive Lymphs % (Man) 0 % 10/16/19 09:20 Monocytes % (Manual) 2.0 % (0.0-7.3) 10/16/19 09:20 Eosinophils % (Manual) 0 % (0.0-4.3) 10/16/19 09:20 Basophils % (Manual) 0 % (0.0-1.8) 10/16/19 09:20 Metamyelocytes % 2.0 % 10/16/19 09:20 Myelocytes % 1.0 % 10/16/19 09:20 Promyelocytes % 0 % 10/16/19 09:20 Blast Cells % 0 % 10/16/19 09:20 Nucleated RBC % Not Reportable 10/16/19 09:20 Seg Neutrophils # 12.4 K/mm3 (1.8-7.7) H 11/30/19 07:08 Seg Neutrophils # Man 11.5 K/mm3 (1.8-7.7) H 10/16/19 09:20 Band Neutrophils # 1.8 K/mm3 10/16/19 09:20 Lymphocytes # (Manual) 0.6 K/mm3 (1.2-5.4) L 10/16/19 09:20 Abs React Lymphs (Man) 0.0 K/mm3 10/16/19 09:20 Monocytes # (Manual) 0.3 K/mm3 (0.0-0.8) 10/16/19 09:20 Eosinophils # (Manual) 0.0 K/mm3 (0.0-0.4) 10/16/19 09:20 Basophils # (Manual) 0.0 K/mm3 (0.0-0.1) 10/16/19 09:20 Metamyelocytes # 0.3 K/mm3 10/16/19 09:20 Myelocytes # 0.1 K/mm3 10/16/19 09:20 Promyelocytes # 0.0 K/mm3 10/16/19 09:20 Blast Cells # 0.0 K/mm3 10/16/19 09:20 WBC Morphology Not Reportable 10/16/19 09:20 Hypersegmented Neuts Not Reportable 10/16/19 09:20 Hyposegmented Neuts Not Reportable 10/16/19 09:20 Hypogranular Neuts Not Reportable 10/16/19 09:20 Smudge Cells Not Reportable 10/16/19 09:20 Toxic Granulation Not Reportable 10/16/19 09:20 Toxic Vacuolation Not Reportable 10/16/19 09:20 Dohle Bodies Not Reportable 10/16/19 09:20 Pelger-Huet Anomaly Not Reportable 10/16/19 09:20 Andres Rods Not Reportable 10/16/19 09:20 Platelet Estimate Consistent w auto 10/16/19 09:20 Clumped Platelets Not Reportable 10/16/19 09:20 Plt Clumps, EDTA Not Reportable 10/16/19 09:20 Large Platelets Not Reportable 10/16/19 09:20 Giant Platelets Not Reportable 10/16/19 09:20 Platelet Satelliting Not Reportable 10/16/19 09:20 Plt Morphology Comment Not Reportable 10/16/19 09:20 RBC Morphology Not Reportable 10/16/19 09:20 Dimorphic RBCs Not Reportable 10/16/19 09:20 Polychromasia Few 10/16/19 09:20 Hypochromasia Few 10/16/19 09:20 Poikilocytosis Not Reportable 10/16/19 09:20 Anisocytosis Not Reportable 10/16/19 09:20 Microcytosis Not Reportable 10/16/19 09:20 Macrocytosis Not Reportable 10/16/19 09:20 Spherocytes Not Reportable 10/16/19 09:20 Pappenheimer Bodies Not Reportable 10/16/19 09:20 Sickle Cells Not Reportable 10/16/19 09:20 Target Cells Few 10/16/19 09:20 Tear Drop Cells Not Reportable 10/16/19 09:20 Ovalocytes Not Reportable 10/16/19 09:20 Helmet Cells Not Reportable 10/16/19 09:20 [place] Bodies Not Reportable 10/16/19 09:20 [place] Rings Not Reportable 10/16/19 09:20 [place] Cells Not Reportable 10/16/19 09:20 Bite Cells Not Reportable 10/16/19 09:20 Crenated Cell Not Reportable 10/16/19 09:20 Elliptocytes Not Reportable 10/16/19 09:20 Acanthocytes (Spur) Not Reportable 10/16/19 09:20 Rouleaux Not Reportable 10/16/19 09:20 Hemoglobin C Crystals Not Reportable 10/16/19 09:20 Schistocytes Not Reportable 10/16/19 09:20 Malaria parasites Not Reportable 10/16/19 09:20 Toni Bodies Not Reportable 10/16/19 09:20 Hem Pathologist Commnt No 10/16/19 09:20 POC ABG pH 7.422 (7.35-7.45) 11/03/19 04:28 ABG pH 7.390 pH Units (7.350-7.450) 10/23/19 04:47 POC ABG pCO2 45.4 (35-45) H 11/03/19 04:28 ABG pCO2 48.4 mm Hg 10/23/19 04:47 POC ABG pO2 83 (80-105) 11/03/19 04:28 ABG pO2 68.9 mm Hg (80.0-90.0) L 10/23/19 04:47 POC ABG HCO3 29.6 (22-26 mml/L) 11/03/19 04:28 ABG HCO3 28.7 mmol/L (20.0-26.0) H 10/23/19 04:47 POC ABG Total CO2 31 (23-27mmol/L) 11/03/19 04:28 POC ABG O2 Sat 96 11/03/19 04:28 ABG O2 Saturation 96.6 % (95.0-99.0) 10/23/19 04:47 ABG O2 Content 8.8 (0.0-44) 10/23/19 04:47 POC ABG Base Excess 5 ((-2) - (+3)mmol/L) 11/03/19 04:28 ABG Base Excess 3.4 mmol/L (-2.0-3.0) H 10/23/19 04:47 ABG Hemoglobin 6.6 gm/dl (14.0-18.0) L 10/23/19 04:47 ABG Carboxyhemoglobin 2.1 % (0.0-5.0) 10/23/19 04:47 ABG Methemoglobin 0.5 % (0.0-1.5) 10/23/19 04:47 Oxyhemoglobin 94.1 % (95.0-99.0) L 10/23/19 04:47 FiO2 40 % 11/03/19 04:28 Sodium 136 mmol/L (137-145) L 11/30/19 07:08 Potassium 3.5 mmol/L (3.6-5.0) L 11/30/19 07:08 Chloride 95.5 mmol/L (98-107) L 11/30/19 07:08 Carbon Dioxide 24 mmol/L (22-30) 11/30/19 07:08 Anion Gap 20 mmol/L 11/30/19 07:08 BUN 7 mg/dL (9-20) L 11/30/19 07:08 Creatinine 0.5 mg/dL (0.8-1.5) L 11/30/19 07:08 Estimated GFR > 60 ml/min 11/30/19 07:08 BUN/Creatinine Ratio 14 % 11/30/19 07:08 Glucose 74 mg/dL (75-100) L 11/30/19 07:08 POC Glucose 101 (70-105) 11/30/19 17:37 Hemoglobin A1c 5.7 % (4-6) 10/06/19 05:36 Lactic Acid 1.10 mmol/L (0.7-2.0) 10/13/19 04:20 Calcium 8.7 mg/dL (8.4-10.2) 11/30/19 07:08 Ionized Calcium 5.2 mg/dL (4.8-5.6) 10/18/19 07:41 Phosphorus 2.70 mg/dL (2.5-4.5) 11/02/19 12:43 Magnesium 1.60 mg/dL (1.7-2.3) L 11/28/19 05:30 Total Bilirubin 0.40 mg/dL (0.1-1.2) 11/30/19 07:08 Direct Bilirubin 0.7 mg/dL (0-0.2) H 10/23/19 10:44 Indirect Bilirubin 0.1 mg/dL 10/23/19 10:44 AST 12 units/L (5-40) 11/30/19 07:08 ALT 9 units/L (7-56) 11/30/19 07:08 Alkaline Phosphatase 138 units/L (35-129) H 11/30/19 07:08 Ammonia 49.0 umol/L (25-60) 10/13/19 04:20 Troponin T < 0.010 ng/mL (0.00-0.029) 10/09/19 17:23 C-Reactive Protein 30.60 mg/dL (0.00-1.30) H 10/15/19 04:32 Serum Total Protein 5.2 g/dL (6.1-8.1) L 10/11/19 09:00 Total Protein 6.6 g/dL (6.3-8.2) 11/30/19 07:08 Albumin 2.2 g/dL (3.9-5) L 11/30/19 07:08 Albumin/Globulin Ratio 0.5 % 11/30/19 07:08 Prealbumin 0.030 g/L (0.200-0.400) L 10/15/19 04:32 [id number] See scanned result 10/11/19 Unknown [id number] See scanned result 10/11/19 Unknown Beta Globulins See scanned result 10/11/19 Unknown Gamma Globulins See scanned result 10/11/19 Unknown Abnorm Protein Band 1 see below 10/11/19 09:00 PEP Interpretation See scanned result 10/11/19 Unknown Triglycerides 185 mg/dL (2-149) H 10/26/19 06:15 Urine Color Yellow (Yellow) 10/26/19 Unknown Urine Turbidity Clear (Clear) 10/26/19 Unknown Urine pH 9.0 (5.0-7.0) H 10/26/19 Unknown Ur Specific [place] 1.011 (1.003-1.030) 10/26/19 Unknown Urine Protein 30 mg/dl mg/dL (Negative) 10/26/19 Unknown Urine Glucose (UA) Neg mg/dL (Negative) 10/26/19 Unknown Urine Ketones Neg mg/dL (Negative) 10/26/19 Unknown Urine Blood Neg (Negative) 10/26/19 Unknown Urine Nitrite Neg (Negative) 10/26/19 Unknown Urine Bilirubin Neg (Negative) 10/26/19 Unknown Urine Urobilinogen < 2.0 mg/dL (<2.0) 10/26/19 Unknown Ur Leukocyte Esterase Neg (Negative) 10/26/19 Unknown Urine WBC (Auto) 1.0 /HPF (0.0-6.0) 10/26/19 Unknown Urine RBC (Auto) 1.0 /HPF (0.0-6.0) 10/26/19 Unknown Urine Bacteria (Auto) 1+ /HPF (Negative) 10/11/19 06:23 Urine Mucus Few /HPF 10/26/19 Unknown Urine Eosinophils None seen (None Seen) 10/11/19 06:23 Ur Random Creatinine See scanned result 10/11/19 Unknown U Random Total Protein See scanned result 10/11/19 Unknown Urine Creatinine 116.8 mg/dL (0.1-20.0) H 10/11/19 06:23 Urine Creatinine 118.2 mg/dL (0.1-20.0) H 10/11/19 06:23 Protein/Creatinin Ratio See scanned result 10/11/19 Unknown Urine Sodium 14 mmol/L 10/11/19 06:23 Urine Total Protein 104 mg/dL (5-11.8) H 10/11/19 06:23 Urine Total Protein 105 mg/dL (5-11.8) H 10/11/19 06:23 U Abnormal Prot Band 1 See scanned result 10/11/19 Unknown U Abnormal Prot Band 2 See scanned result 10/11/19 Unknown U Abnormal Prot Band 3 See scanned result 10/11/19 Unknown Vancomycin Trough 5.7 ug/mL (5.0-20.0) 11/05/19 09:00 Random Vancomycin 9.6 ug/mL (0-40.0) 11/03/19 03:42 Digoxin 0.7 ng/mL (0.9-2.0) L 10/19/19 04:21 Blood Type A POSITIVE 11/21/19 13:32 Antibody Screen Negative 11/21/19 13:32 Crossmatch See Detail 11/21/19 13:32 Active Medications - Current Medications Current Medications: Generic Name Dose Route Start Last Admin Trade Name Freq PRN Reason Stop Dose Admin Acetaminophen 650 mg 11/24/19 12:28 11/26/19 11:50 Tylenol PO 650 mg Q6H PRN Administration Pain, Mild (1-3) Acetaminophen/Hydrocodone Bitart 1 each 11/24/19 12:27 11/30/19 17:20 [place] 10/325 PO 1 each Q6H PRN Administration Pain, Moderate (4-6) Albuterol/Ipratropium 1 ampul 11/23/19 08:00 11/30/19 14:07 Duoneb *Not For Prn Use* IH Not Given TIDRT VERÓNICA Amiodarone HCl 200 mg 10/23/19 13:00 11/30/19 09:19 Cordarone PO 200 mg QDAY VERÓNICA Administration Arformoterol Tartrate 15 mcg 10/06/19 08:30 11/30/19 08:50 Brovana Nebu IH 15 mcg Q12HRT VERÓNICA Administration Budesonide 0.5 mg 10/07/19 12:20 11/30/19 08:50 Pulmicort IH 0.5 mg Q12HRT VERÓNICA Administration Citalopram Hydrobromide 20 mg 10/27/19 12:00 11/30/19 09:19 Celexa PO 20 mg DAILY VERÓNICA Administration Diphenhydramine HCl 25 mg 11/17/19 20:15 11/17/19 20:58 Benadryl PO 25 mg Q6H PRN Administration Itching Enoxaparin Sodium 40 mg 11/05/19 22:00 11/29/19 22:06 Enoxaparin SUB-Q 40 mg QDAY@2200 VERÓNICA Administration Haloperidol Lactate 5 mg 10/25/19 18:22 11/12/19 03:33 Haldol IV 5 mg Q6H PRN Administration Agitation Hydralazine HCl 10 mg 10/28/19 14:09 11/02/19 15:34 Apresoline IV 10 mg Q4HR PRN Administration Hypertension Hydromorphone HCl 1 mg 11/24/19 12:28 11/26/19 01:09 Dilaudid IV 1 mg Q4H PRN Administration Pain , Severe (7-10) Insulin Human Lispro 0 unit 10/14/19 12:00 11/30/19 17:54 Humalog SUB-Q Not Given Q6HR [facility] Protocol Metoprolol Tartrate 2.5 mg 10/15/19 15:34 11/01/19 18:00 Metoprolol IV 2.5 mg Q4HR PRN Administration HR >130 Metoprolol Tartrate 12.5 mg 11/21/19 16:00 11/30/19 17:15 Metoprolol PO Not Given Q8HR [facility] Multi-Ingred Cream/Lotion/Oil/Oint 1 applic 10/14/19 02:19 Artificial Tears Ophth Oint OU Q4HR PRN Dry Eye(s) Pantoprazole Sodium 40 mg 11/20/19 10:00 11/30/19 09:19 Protonix PO 40 mg DAILY VERÓNICA Administration Sodium Chloride 10 ml 11/07/19 19:32 11/28/19 21:23 Sodium Chloride Flush Syringe 10 Ml IV 10 ml PRN PRN Administration LINE FLUSH Zolpidem Tartrate 5 mg 11/10/19 21:00 11/11/19 03:30 Ambien FEEDTUBE 5 mg QHS PRN Administration Sleep Nutrition/Malnutrition Assess - Dietary Evaluation Nutrition/Malnutrition Findings: Nutrition Notes Start: 10/08/19 11:36 Freq: Status: Active Protocol: Document 11/29/19 12:26 JENN (Rec: 11/29/19 12:47 JENN [id number]) Co-Sign 11/29/19 12:26 LP Nutrition Notes Initial or Follow up Reassessment Current Diagnosis Acute Kidney Injury,COPD, Hypertension Other Pertinent Diagnosis intra-abdominal infection, disruption of bowel anastomosis, LE edema Current Diet Regular Labs/Tests Na 136 K 3.1 BUN 6 Cr 0.5 Pertinent Medications Reviewed Height 6 ft Weight 103.2 kg [place] Body Weight (kg) 80.90 BMI 30.8 Weight change and time frame Wt change noted from current scale Weight Status Morbidly Obese Subjective/Other Information F/U for PO intakes. Pt stated his appetite has been good, but doesn't like the food and has outside food brought in. Pt ate about 75% of breakfast Percent of energy/protein needs met: unable to determine Burn Absent Trauma Absent GI Symptoms None Current % PO Good (75-100%) Minimum of two criteria No Fluid Accumulation Mild (non-severe) #1 Nutrition Diagnosis Increased nutrient needs ( specify in comment below) Diagnosis Progress(for reassessment Continues documentation) Is patient on ventilator? No Is Patient Ambulatory and/or Out of Bed No REE-([place]-confined to bed) 2284.140 Kcal/Kg value to use for calculation 19 Approximate Energy Requirements Using 1961 kcal/Kg Calculation Used for Recommendations Kcal/kg Additional Notes Protein: 136-169g (1.2-1.5g/kg ) AdjBW 113kg Fluid 1 ml/kcal or per MD Nutrition Intervention Change Diet Order: Continue regular Goal #1 Meet at least 80% of energy and protein needs via PO intakes Anticipated Discharge Needs: Regular diet Follow-Up By: 12/06/19 Additional Comments F/U for PO intakes
[2019-11-30] MEDS: ENOXAPARIN 40 MG/0.4 ML INJ SUB-Q SCH (21:48)
[2019-12-01] MEDS: HYDROcodone/ACETAMINOPHEN 10-325MG TAB PO PRN ×2 (01:18→09:05)
[2019-12-01] MEDS: INSULIN LISPRO 100 UNIT/ML SUB-Q SCH ×4 (01:19→18:09)
[2019-12-01] MEDS: METOPROLOL TARTRATE 50 MG TAB PO SCH ×3 (06:35→23:00)
[2019-12-01 06:37] LABS: Basophils % (Auto) 0.2 % (0.0-1.8); Eosinophils % (Auto) 0.3 % (0.0-4.3); Hematocrit 24.8 % (35.5-45.6); Hemoglobin 8.1 gm/dl (11.8-15.2); Lymphocytes # (Auto) 1.4 K/mm3 (1.2-5.4); Lymphocytes % (Auto) 12.4 % (13.4-35.0); Mean Corpuscular HGB Conc 33 % (32-34); Mean Corpuscular Volume 81 fl (84-94); Monocytes % (Auto) 8.6 % (0.0-7.3); Platelet Count 438 K/mm3 (140-440); Red Blood Count 3.05 M/mm3 (3.65-5.03); Red Cell Distribution Width 16.9 % (13.2-15.2)
[2019-12-01 06:50] LABS: BUN/Creatinine Ratio 14; Blood Urea Nitrogen 7 mg/dL (9-20); Calcium 8.6 mg/dL (8.4-10.2); Hemolysis Index 18
[2019-12-01] MEDS: BUDESONIDE 0.5 MG/2 ML NEBU IH SCH ×2 (08:01→20:20)
[2019-12-01] MEDS: ARFORMOTEROL 15 MCG/2 ML NEBU IH SCH ×2 (08:01→20:20)
[2019-12-01] MEDS: IPRATROPIUM/ALBUTEROL SULFATE 3 ML AMPUL.NEB IH SCH ×3 (08:02→20:20)
[2019-12-01] MEDS: AMIODARONE 200 MG TAB PO SCH (09:05)
[2019-12-01] MEDS: PANTOPRAZOLE 40 MG TAB PO SCH (09:05)
[2019-12-01] MEDS: CITALOPRAM 20 MG TAB PO SCH (09:05)
[2019-12-01] MEDS ORDERED: POTASSIUM CHLORIDE ER 20 MEQ TAB PO ONE (11:58)
--- NOTE | 2019-12-01 13:33 | Progress Note ---
Assessment and Plan - Patient Problems (1) Dehiscence of closure of fascia, superficial or muscular Current Visit: No Status: Acute Qualifiers: Encounter type: initial encounter Qualified Code(s): T81.32XA - Disruption of internal operation (surgical) wound, not elsewhere classified, initial encounter Plan to address problem: Pt stable. s/p ex lap with closure of abdominal wall and wound vac placement (10/05) - POD#57; s/p Re-exploration, washout, transection of colon, Abthera placement - 10/13 - POD#49; s/p abd washout, partial omentectomy, partial colectomy with colostomy - 10/16 POD#46; s/p abd washout, feeding tube placement, AbThera placement - 10/19 - POD#43; Abdominal washout and closure - 10/22 - POD#40 Patient appears stable. Rec: 1) Neuro - self-extubated 11/04. 2) CV - BP normal today. Appreciate hospitalist help with transfusion and adjustment BP meds. 3) Resp - On NC. Small bore CT on left - removed 11/02. 4) GI - Ostomy looks good. Functioning. Repeat CT done when showed main drain to be in good position. No obvious collection around pigtail catheter. Expect to see air in main fluid collection as catheter is open to air and is being flushed periodically to keep open. Removed left flank pigtail catheter today. Easily flushed, but no output when aspirated. Sump drains - both are out now. Midline drain - seems to be working well. ordered to be flushed daily. Wound Seating Upholsterer - wound looked good on last check. Need to keep catheter in wound to stent open the drainage point. Ostomy - functioning. Gastric Port - May be used as needed for feeds or meds. Will most likely remove when he is scheduled to be transferred to acute rehab. 5) - BUN/Cr stable. 6) ID - Abx per ID. None at this time. 7) Nutrition - Oral nutrition. Passed Speech Eval. 8) DVT prophylaxis - SCDs. Lovenox 9) Family -no family at bedside. 10) PT - will need rehab. 11) Sacral Pressure Wound - unfortunately, patient has developed a deep pressure wound. Advised patient to keep changing positions. Will debride at bedside on Tuesday with the assistance of the wound care nurse. 11) Dispo - Ok for transfer to rehab from my perspective. Await Rehab decision on acceptance. Note: Spoke with [facility] surgeon on 11/01/19 about possible transfer. They reviewed the notes that were sent and we discussed the case. They felt that they had nothing else to offer. They agreed with our management. Also agreed that another exploration should not be done. If needed, additional drains can be placed. They did suggest putting a [place] tube in the rectum to decompress that area. (That has been done). This conversation was communicated to the . Please call with questions. Subjective Date of service: 12/01/19 Patient Reports: Positive: no new complaints, feels better Objective Vital Signs - 12hr 12/01/19 12/01/19 12/01/19 03:57 07:59 08:11 Temperature 97.4 F L Pulse Rate 82 Pulse Rate [ 74 Anterior Bilateral Throughout] Respiratory 20 Rate Respiratory 18 Rate [Anterior Bilateral Throughout] Blood Pressure 103/52 O2 Sat by Pulse 91 93 Oximetry 12/01/19 08:35 Temperature 98.4 F Pulse Rate 83 Pulse Rate [ Anterior Bilateral Throughout] Respiratory 18 Rate Respiratory Rate [Anterior Bilateral Throughout] Blood Pressure 107/32 O2 Sat by Pulse 91 Oximetry - General physical appearance no distress, no pain, obese - Eyes normal occular movement - Respiratory normal expansion, normal respiratory effort - Abdomen soft, other (left flank pigtail catheter with dry tubing) - Psychiatric oriented to time, oriented to person, oriented to place, speech is normal, memory intact - Labs 12/01/19 05:53 12/01/19 05:53 Diabetes panel 12/01/19 Range/Units 05:53 Sodium 135 L (137-145) mmol/L Potassium 3.4 L (3.6-5.0) mmol/L Chloride 97.3 L (98-107) mmol/L Carbon Dioxide 24 (22-30) mmol/L BUN 7 L (9-20) mg/dL Creatinine 0.5 L (0.8-1.5) mg/dL Glucose 87 (75-100) mg/dL Calcium 8.6 (8.4-10.2) mg/dL Calcium panel 12/01/19 Range/Units 05:53 Calcium 8.6 (8.4-10.2) mg/dL Phosphorus 4.40 (2.5-4.5) mg/dL Pituitary panel 12/01/19 Range/Units 05:53 Sodium 135 L (137-145) mmol/L Potassium 3.4 L (3.6-5.0) mmol/L Chloride 97.3 L (98-107) mmol/L Carbon Dioxide 24 (22-30) mmol/L BUN 7 L (9-20) mg/dL Creatinine 0.5 L (0.8-1.5) mg/dL Glucose 87 (75-100) mg/dL Calcium 8.6 (8.4-10.2) mg/dL Adrenal panel 12/01/19 Range/Units 05:53 Sodium 135 L (137-145) mmol/L Potassium 3.4 L (3.6-5.0) mmol/L Chloride 97.3 L (98-107) mmol/L Carbon Dioxide 24 (22-30) mmol/L BUN 7 L (9-20) mg/dL Creatinine 0.5 L (0.8-1.5) mg/dL Glucose 87 (75-100) mg/dL Calcium 8.6 (8.4-10.2) mg/dL
[2019-12-01] MEDS: HYDROmorphone 2 MG/1 ML INJ IV PRN (18:28)
--- NOTE | 2019-12-01 19:37 | Progress Note ---
Assessment and Plan Assessment and plan: --Sacral Pressure Wound -wound care, frequent changing positions. possible surgical debredement on Tuesday per surgery --Left flank pain;resolved CT abdomen and pelvis reviewed --Sepsis, improved. Completed Abx per ID. Dehiscence of closure of fascia s/p ex lap with closure of abdominal wall and wound vac placement 10/05 ; s/p Re-exploration, washout, transection of colon, Abthera placement -10/13; s/p abd washout, partial omentectomy, partial colectomy with colostomy - 10/16. s/p abd washout, feeding tube placement, AbThera placement - 10/19; Abdominal washout and closure - 10/22. --Acute Respiratory failure with hypoxia, Extubated 10/25/19, Re-intubated 10/30 self extubated 11/04, now on Oxygen --Left pneumothorax s/p chest tube placed 10/30 Resolved. --Left lower lobe pneumonia: Completed treatment CTA chest showed left lower lobe consolidation with pleural effusion --COPD: Continue current management --GUILLERMO on CKD/ ATN due to sepsis/resolved --Acute blood loss anemia: s/p PRBCs. H&H currently stable. --Acute Toxic Metabolic Encephalopathy/Delirium Tremens. Resolved. --SVT, Atrial fib/flutter with RVR:rate controlled On oral amiodarone,metoprolol s/p adenosine.amiodarone,cardizem drip --Hx of Hypertension :Stable cont antihypertensives --Hyperlipidemia: Stable --Hx of MA/CAD -s/p PCI of the circumflex and second vessel POBA of the distal LAD occlusion. Left ventricle fraction of 45-50%. --Moderate Protein calorie malnutrition: Photographic Specialist following --Tobacco abuse:Cessation recommended --Morbid obesity with BMI of 43.4 now 32.0 weight reduction when stable --DVT and GI ppx: Lovenox/PPI --Disposition: wound debredement on Tuesday12/03/19 Awaiting acute rehabilitation placement History Interval history: Patient seen and examined this morning,medical chart reviewed No new complaints Vital signs reviewed Hospitalist Physical - Constitutional Vitals: Temp Pulse Resp BP Pulse Ox 98.3 F 88 20 106/36 94 12/01/19 17:10 12/01/19 17:10 12/01/19 17:10 12/01/19 17:10 12/01/19 17:10 General appearance: Present: no acute distress, obese - EENT Eyes: Present: PERRL, EOM intact - Neck Neck: Present: supple, normal ROM - Respiratory Respiratory effort: normal Respiratory: negative: rales, rhonchi, wheezing - Cardiovascular Rhythm: regular Heart Sounds: Present: S1 & S2 - Extremities Extremities: no ischemia, No edema - Abdominal General gastrointestinal: soft, non-tender, non-distended, normal bowel sounds, other (Ostomy, G tube,drain in place) - Integumentary Integumentary: Present: clear, warm - Psychiatric Psychiatric: appropriate mood/affect, cooperative - Neurologic Neurologic: moves all extremities - Additional findings Additional findings: Sacral pr ulcer KEATON score - Keaton Score Age > 65: (0) No Aspirin use within the Past 7 Days: (0) No 3 or more CAD Risk Factors: (1) Yes 2 or more Angina events in past 24 hrs: (1) Yes Known CAD with more than 50% Stenosis: (0) No Elevated Cardiac Markers: (0) No ST Deviation Greater than 0.5mm: (1) Yes KEATON Score: 3 Results - Labs CBC & Chem 7: 12/01/19 05:53 12/01/19 05:53 Labs: Laboratory Last Values WBC 11.6 K/mm3 (4.5-11.0) H 12/01/19 05:53 RBC 3.05 M/mm3 (3.65-5.03) L 12/01/19 05:53 Hgb 8.1 gm/dl (11.8-15.2) L 12/01/19 05:53 Hct 24.8 % (35.5-45.6) L 12/01/19 05:53 MCV 81 fl (84-94) L 12/01/19 05:53 MCH 27 pg (28-32) L 12/01/19 05:53 MCHC 33 % (32-34) 12/01/19 05:53 RDW 16.9 % (13.2-15.2) H 12/01/19 05:53 Plt Count 438 K/mm3 (140-440) 12/01/19 05:53 Lymph % (Auto) 12.4 % (13.4-35.0) L 12/01/19 05:53 [place] % (Auto) 8.6 % (0.0-7.3) H 12/01/19 05:53 Eos % (Auto) 0.3 % (0.0-4.3) 12/01/19 05:53 Baso % (Auto) 0.2 % (0.0-1.8) 12/01/19 05:53 Lymph # 1.4 K/mm3 (1.2-5.4) 12/01/19 05:53 [place] # 1.0 K/mm3 (0.0-0.8) H 12/01/19 05:53 Eos # 0.0 K/mm3 (0.0-0.4) 12/01/19 05:53 Baso # 0.0 K/mm3 (0.0-0.1) 12/01/19 05:53 Add Manual Diff Complete 10/16/19 09:20 Total Counted 100 10/16/19 09:20 Seg Neutrophils % 78.5 % (40.0-70.0) H 12/01/19 05:53 Seg Neuts % (Manual) 79.0 % (40.0-70.0) H 10/16/19 09:20 Band Neutrophils % 12.0 % 10/16/19 09:20 Lymphocytes % (Manual) 4.0 % (13.4-35.0) L 10/16/19 09:20 Reactive Lymphs % (Man) 0 % 10/16/19 09:20 Monocytes % (Manual) 2.0 % (0.0-7.3) 10/16/19 09:20 Eosinophils % (Manual) 0 % (0.0-4.3) 10/16/19 09:20 Basophils % (Manual) 0 % (0.0-1.8) 10/16/19 09:20 Metamyelocytes % 2.0 % 10/16/19 09:20 Myelocytes % 1.0 % 10/16/19 09:20 Promyelocytes % 0 % 10/16/19 09:20 Blast Cells % 0 % 10/16/19 09:20 Nucleated RBC % Not Reportable 10/16/19 09:20 Seg Neutrophils # 9.1 K/mm3 (1.8-7.7) H 12/01/19 05:53 Seg Neutrophils # Man 11.5 K/mm3 (1.8-7.7) H 10/16/19 09:20 Band Neutrophils # 1.8 K/mm3 10/16/19 09:20 Lymphocytes # (Manual) 0.6 K/mm3 (1.2-5.4) L 10/16/19 09:20 Abs React Lymphs (Man) 0.0 K/mm3 10/16/19 09:20 Monocytes # (Manual) 0.3 K/mm3 (0.0-0.8) 10/16/19 09:20 Eosinophils # (Manual) 0.0 K/mm3 (0.0-0.4) 10/16/19 09:20 Basophils # (Manual) 0.0 K/mm3 (0.0-0.1) 10/16/19 09:20 Metamyelocytes # 0.3 K/mm3 10/16/19 09:20 Myelocytes # 0.1 K/mm3 10/16/19 09:20 Promyelocytes # 0.0 K/mm3 10/16/19 09:20 Blast Cells # 0.0 K/mm3 10/16/19 09:20 WBC Morphology Not Reportable 10/16/19 09:20 Hypersegmented Neuts Not Reportable 10/16/19 09:20 Hyposegmented Neuts Not Reportable 10/16/19 09:20 Hypogranular Neuts Not Reportable 10/16/19 09:20 Smudge Cells Not Reportable 10/16/19 09:20 Toxic Granulation Not Reportable 10/16/19 09:20 Toxic Vacuolation Not Reportable 10/16/19 09:20 Dohle Bodies Not Reportable 10/16/19 09:20 Pelger-Huet Anomaly Not Reportable 10/16/19 09:20 Andres Rods Not Reportable 10/16/19 09:20 Platelet Estimate Consistent w auto 10/16/19 09:20 Clumped Platelets Not Reportable 10/16/19 09:20 Plt Clumps, EDTA Not Reportable 10/16/19 09:20 Large Platelets Not Reportable 10/16/19 09:20 Giant Platelets Not Reportable 10/16/19 09:20 Platelet Satelliting Not Reportable 10/16/19 09:20 Plt Morphology Comment Not Reportable 10/16/19 09:20 RBC Morphology Not Reportable 10/16/19 09:20 Dimorphic RBCs Not Reportable 10/16/19 09:20 Polychromasia Few 10/16/19 09:20 Hypochromasia Few 10/16/19 09:20 Poikilocytosis Not Reportable 10/16/19 09:20 Anisocytosis Not Reportable 10/16/19 09:20 Microcytosis Not Reportable 10/16/19 09:20 Macrocytosis Not Reportable 10/16/19 09:20 Spherocytes Not Reportable 10/16/19 09:20 Pappenheimer Bodies Not Reportable 10/16/19 09:20 Sickle Cells Not Reportable 10/16/19 09:20 Target Cells Few 10/16/19 09:20 Tear Drop Cells Not Reportable 10/16/19 09:20 Ovalocytes Not Reportable 10/16/19 09:20 Helmet Cells Not Reportable 10/16/19 09:20 [place] Bodies Not Reportable 10/16/19 09:20 [place] Rings Not Reportable 10/16/19 09:20 [place] Cells Not Reportable 10/16/19 09:20 Bite Cells Not Reportable 10/16/19 09:20 Crenated Cell Not Reportable 10/16/19 09:20 Elliptocytes Not Reportable 10/16/19 09:20 Acanthocytes (Spur) Not Reportable 10/16/19 09:20 Rouleaux Not Reportable 10/16/19 09:20 Hemoglobin C Crystals Not Reportable 10/16/19 09:20 Schistocytes Not Reportable 10/16/19 09:20 Malaria parasites Not Reportable 10/16/19 09:20 Toni Bodies Not Reportable 10/16/19 09:20 Hem Pathologist Commnt No 10/16/19 09:20 POC ABG pH 7.422 (7.35-7.45) 11/03/19 04:28 ABG pH 7.390 pH Units (7.350-7.450) 10/23/19 04:47 POC ABG pCO2 45.4 (35-45) H 11/03/19 04:28 ABG pCO2 48.4 mm Hg 10/23/19 04:47 POC ABG pO2 83 (80-105) 11/03/19 04:28 ABG pO2 68.9 mm Hg (80.0-90.0) L 10/23/19 04:47 POC ABG HCO3 29.6 (22-26 mml/L) 11/03/19 04:28 ABG HCO3 28.7 mmol/L (20.0-26.0) H 10/23/19 04:47 POC ABG Total CO2 31 (23-27mmol/L) 11/03/19 04:28 POC ABG O2 Sat 96 11/03/19 04:28 ABG O2 Saturation 96.6 % (95.0-99.0) 10/23/19 04:47 ABG O2 Content 8.8 (0.0-44) 10/23/19 04:47 POC ABG Base Excess 5 ((-2) - (+3)mmol/L) 11/03/19 04:28 ABG Base Excess 3.4 mmol/L (-2.0-3.0) H 10/23/19 04:47 ABG Hemoglobin 6.6 gm/dl (14.0-18.0) L 10/23/19 04:47 ABG Carboxyhemoglobin 2.1 % (0.0-5.0) 10/23/19 04:47 ABG Methemoglobin 0.5 % (0.0-1.5) 10/23/19 04:47 Oxyhemoglobin 94.1 % (95.0-99.0) L 10/23/19 04:47 FiO2 40 % 11/03/19 04:28 Sodium 135 mmol/L (137-145) L 12/01/19 05:53 Potassium 3.4 mmol/L (3.6-5.0) L 12/01/19 05:53 Chloride 97.3 mmol/L (98-107) L 12/01/19 05:53 Carbon Dioxide 24 mmol/L (22-30) 12/01/19 05:53 Anion Gap 17 mmol/L 12/01/19 05:53 BUN 7 mg/dL (9-20) L 12/01/19 05:53 Creatinine 0.5 mg/dL (0.8-1.5) L 12/01/19 05:53 Estimated GFR > 60 ml/min 12/01/19 05:53 BUN/Creatinine Ratio 14 % 12/01/19 05:53 Glucose 87 mg/dL (75-100) 12/01/19 05:53 POC Glucose 99 (70-105) 12/01/19 18:09 Hemoglobin A1c 5.7 % (4-6) 10/06/19 05:36 Lactic Acid 1.10 mmol/L (0.7-2.0) 10/13/19 04:20 Calcium 8.6 mg/dL (8.4-10.2) 12/01/19 05:53 Ionized Calcium 5.2 mg/dL (4.8-5.6) 10/18/19 07:41 Phosphorus 4.40 mg/dL (2.5-4.5) 12/01/19 05:53 Magnesium 1.70 mg/dL (1.7-2.3) 12/01/19 05:53 Total Bilirubin 0.40 mg/dL (0.1-1.2) 11/30/19 07:08 Direct Bilirubin 0.7 mg/dL (0-0.2) H 10/23/19 10:44 Indirect Bilirubin 0.1 mg/dL 10/23/19 10:44 AST 12 units/L (5-40) 11/30/19 07:08 ALT 9 units/L (7-56) 11/30/19 07:08 Alkaline Phosphatase 138 units/L (35-129) H 11/30/19 07:08 Ammonia 49.0 umol/L (25-60) 10/13/19 04:20 Troponin T < 0.010 ng/mL (0.00-0.029) 10/09/19 17:23 C-Reactive Protein 30.60 mg/dL (0.00-1.30) H 10/15/19 04:32 Serum Total Protein 5.2 g/dL (6.1-8.1) L 10/11/19 09:00 Total Protein 6.6 g/dL (6.3-8.2) 11/30/19 07:08 Albumin 2.2 g/dL (3.9-5) L 11/30/19 07:08 Albumin/Globulin Ratio 0.5 % 11/30/19 07:08 Prealbumin 0.030 g/L (0.200-0.400) L 10/15/19 04:32 [id number] See scanned result 10/11/19 Unknown [id number] See scanned result 10/11/19 Unknown Beta Globulins See scanned result 10/11/19 Unknown Gamma Globulins See scanned result 10/11/19 Unknown Abnorm Protein Band 1 see below 10/11/19 09:00 PEP Interpretation See scanned result 10/11/19 Unknown Triglycerides 185 mg/dL (2-149) H 10/26/19 06:15 Urine Color Yellow (Yellow) 10/26/19 Unknown Urine Turbidity Clear (Clear) 10/26/19 Unknown Urine pH 9.0 (5.0-7.0) H 10/26/19 Unknown Ur Specific [place] 1.011 (1.003-1.030) 10/26/19 Unknown Urine Protein 30 mg/dl mg/dL (Negative) 10/26/19 Unknown Urine Glucose (UA) Neg mg/dL (Negative) 10/26/19 Unknown Urine Ketones Neg mg/dL (Negative) 10/26/19 Unknown Urine Blood Neg (Negative) 10/26/19 Unknown Urine Nitrite Neg (Negative) 10/26/19 Unknown Urine Bilirubin Neg (Negative) 10/26/19 Unknown Urine Urobilinogen < 2.0 mg/dL (<2.0) 10/26/19 Unknown Ur Leukocyte Esterase Neg (Negative) 10/26/19 Unknown Urine WBC (Auto) 1.0 /HPF (0.0-6.0) 10/26/19 Unknown Urine RBC (Auto) 1.0 /HPF (0.0-6.0) 10/26/19 Unknown Urine Bacteria (Auto) 1+ /HPF (Negative) 10/11/19 06:23 Urine Mucus Few /HPF 10/26/19 Unknown Urine Eosinophils None seen (None Seen) 10/11/19 06:23 Ur Random Creatinine See scanned result 10/11/19 Unknown U Random Total Protein See scanned result 10/11/19 Unknown Urine Creatinine 116.8 mg/dL (0.1-20.0) H 10/11/19 06:23 Urine Creatinine 118.2 mg/dL (0.1-20.0) H 10/11/19 06:23 Protein/Creatinin Ratio See scanned result 10/11/19 Unknown Urine Sodium 14 mmol/L 10/11/19 06:23 Urine Total Protein 104 mg/dL (5-11.8) H 10/11/19 06:23 Urine Total Protein 105 mg/dL (5-11.8) H 10/11/19 06:23 U Abnormal Prot Band 1 See scanned result 10/11/19 Unknown U Abnormal Prot Band 2 See scanned result 10/11/19 Unknown U Abnormal Prot Band 3 See scanned result 10/11/19 Unknown Vancomycin Trough 5.7 ug/mL (5.0-20.0) 11/05/19 09:00 Random Vancomycin 9.6 ug/mL (0-40.0) 11/03/19 03:42 Digoxin 0.7 ng/mL (0.9-2.0) L 10/19/19 04:21 Blood Type A POSITIVE 11/21/19 13:32 Antibody Screen Negative 11/21/19 13:32 Crossmatch See Detail 11/21/19 13:32 Active Medications - Current Medications Current Medications: Generic Name Dose Route Start Last Admin Trade Name Freq PRN Reason Stop Dose Admin Acetaminophen 650 mg 11/24/19 12:28 11/26/19 11:50 Tylenol PO 650 mg Q6H PRN Administration Pain, Mild (1-3) Acetaminophen/Hydrocodone Bitart 1 each 11/24/19 12:27 12/01/19 09:05 Embarrass 10/325 PO 1 each Q6H PRN Administration Pain, Moderate (4-6) Albuterol/Ipratropium 1 ampul 11/23/19 08:00 12/01/19 14:35 Duoneb *Not For Prn Use* IH 1 ampul TIDRT VERÓNICA Administration Amiodarone HCl 200 mg 10/23/19 13:00 12/01/19 09:05 Cordarone PO 200 mg QDAY VERÓNICA Administration Arformoterol Tartrate 15 mcg 10/06/19 08:30 12/01/19 08:01 Brovana Nebu IH 15 mcg Q12HRT VERÓNICA Administration Budesonide 0.5 mg 10/07/19 12:20 12/01/19 08:01 Pulmicort IH 0.5 mg Q12HRT VERÓNICA Administration Citalopram Hydrobromide 20 mg 10/27/19 12:00 12/01/19 09:05 Celexa PO 20 mg DAILY VERÓNICA Administration Diphenhydramine HCl 25 mg 11/17/19 20:15 11/17/19 20:58 Benadryl PO 25 mg Q6H PRN Administration Itching Enoxaparin Sodium 40 mg 11/05/19 22:00 11/30/19 21:48 Enoxaparin SUB-Q 40 mg QDAY@2200 VERÓNICA Administration Haloperidol Lactate 5 mg 10/25/19 18:22 11/12/19 03:33 Haldol IV 5 mg Q6H PRN Administration Agitation Hydralazine HCl 10 mg 10/28/19 14:09 11/02/19 15:34 Apresoline IV 10 mg Q4HR PRN Administration Hypertension Hydromorphone HCl 1 mg 11/24/19 12:28 12/01/19 18:28 Dilaudid IV 1 mg Q4H PRN Administration Pain , Severe (7-10) Insulin Human Lispro 0 unit 10/14/19 12:00 12/01/19 18:09 Humalog SUB-Q Not Given Q6HR [facility] Protocol Metoprolol Tartrate 2.5 mg 10/15/19 15:34 11/01/19 18:00 Metoprolol IV 2.5 mg Q4HR PRN Administration HR >130 Metoprolol Tartrate 12.5 mg 11/21/19 16:00 12/01/19 13:02 Metoprolol PO 12.5 mg Q8HR VERÓNICA Administration Multi-Ingred Cream/Lotion/Oil/Oint 1 applic 10/14/19 02:19 Artificial Tears Ophth Oint OU Q4HR PRN Dry Eye(s) Pantoprazole Sodium 40 mg 11/20/19 10:00 12/01/19 09:05 Protonix PO 40 mg DAILY VERÓNICA Administration Sodium Chloride 10 ml 11/07/19 19:32 11/28/19 21:23 Sodium Chloride Flush Syringe 10 Ml IV 10 ml PRN PRN Administration LINE FLUSH Zolpidem Tartrate 5 mg 11/10/19 21:00 11/11/19 03:30 Ambien FEEDTUBE 5 mg QHS PRN Administration Sleep Nutrition/Malnutrition Assess - Dietary Evaluation Nutrition/Malnutrition Findings: Nutrition Notes Start: 10/08/19 11:36 Freq: Status: Active Protocol: Document 11/29/19 12:26 JENN (Rec: 11/29/19 12:47 JENN [id number]) Co-Sign 11/29/19 12:26 LP Nutrition Notes Initial or Follow up Reassessment Current Diagnosis Acute Kidney Injury,COPD, Hypertension Other Pertinent Diagnosis intra-abdominal infection, disruption of bowel anastomosis, LE edema Current Diet Regular Labs/Tests Na 136 K 3.1 BUN 6 Cr 0.5 Pertinent Medications Reviewed Height 6 ft Weight 103.2 kg [place] Body Weight (kg) 80.90 BMI 30.8 Weight change and time frame Wt change noted from current scale Weight Status Morbidly Obese Subjective/Other Information F/U for PO intakes. Pt stated his appetite has been good, but doesn't like the food and has outside food brought in. Pt ate about 75% of breakfast Percent of energy/protein needs met: unable to determine Burn Absent Trauma Absent GI Symptoms None Current % PO Good (75-100%) Minimum of two criteria No Fluid Accumulation Mild (non-severe) #1 Nutrition Diagnosis Increased nutrient needs ( specify in comment below) Diagnosis Progress(for reassessment Continues documentation) Is patient on ventilator? No Is Patient Ambulatory and/or Out of Bed No REE-([place]-St. Jeor-confined to bed) 2284.140 Kcal/Kg value to use for calculation 19 Approximate Energy Requirements Using 1961 kcal/Kg Calculation Used for Recommendations Kcal/kg Additional Notes Protein: 136-169g (1.2-1.5g/kg ) AdjBW 113kg Fluid 1 ml/kcal or per MD Nutrition Intervention Change Diet Order: Continue regular Goal #1 Meet at least 80% of energy and protein needs via PO intakes Anticipated Discharge Needs: Regular diet Follow-Up By: 12/06/19 Additional Comments F/U for PO intakes
[2019-12-01] MEDS: ENOXAPARIN 40 MG/0.4 ML INJ SUB-Q SCH (23:00)
[2019-12-02] MEDS: INSULIN LISPRO 100 UNIT/ML SUB-Q SCH ×4 (00:07→17:22)
[2019-12-02] MEDS: METOPROLOL TARTRATE 50 MG TAB PO SCH ×3 (07:14→21:43)
[2019-12-02] MEDS: HYDROcodone/ACETAMINOPHEN 10-325MG TAB PO PRN ×3 (07:51→21:49)
[2019-12-02] MEDS: ARFORMOTEROL 15 MCG/2 ML NEBU IH SCH ×2 (08:21→19:36)
[2019-12-02] MEDS: BUDESONIDE 0.5 MG/2 ML NEBU IH SCH ×2 (08:22→19:37)
[2019-12-02] MEDS: IPRATROPIUM/ALBUTEROL SULFATE 3 ML AMPUL.NEB IH SCH ×3 (08:22→19:37)
[2019-12-02] MEDS: AMIODARONE 200 MG TAB PO SCH (09:20)
[2019-12-02] MEDS: CITALOPRAM 20 MG TAB PO SCH (09:21)
[2019-12-02] MEDS: PANTOPRAZOLE 40 MG TAB PO SCH (09:21)
--- NOTE | 2019-12-02 09:52 | Progress Note ---
Assessment and Plan Assessment and plan: --Sacral Pressure Wound -wound care, frequent changing positions. possible surgical debredement on Tuesday per surgery --Left flank pain;resolved CT abdomen and pelvis reviewed --Sepsis, improved. Completed Abx per ID. Dehiscence of closure of fascia s/p ex lap with closure of abdominal wall and wound vac placement 10/05 ; s/p Re-exploration, washout, transection of colon, Abthera placement -10/13; s/p abd washout, partial omentectomy, partial colectomy with colostomy - 10/16. s/p abd washout, feeding tube placement, AbThera placement - 10/19; Abdominal washout and closure - 10/22. --Acute Respiratory failure with hypoxia, Extubated 10/25/19, Re-intubated 10/30 self extubated 11/04, now on Oxygen --Left pneumothorax s/p chest tube placed 10/30 Resolved. --Left lower lobe pneumonia: Completed treatment CTA chest showed left lower lobe consolidation with pleural effusion --COPD: Continue current management --GUILLERMO on CKD/ ATN due to sepsis/resolved --Acute blood loss anemia: s/p PRBCs. H&H currently stable. --Acute Toxic Metabolic Encephalopathy/Delirium Tremens. Resolved. --SVT, Atrial fib/flutter with RVR:rate controlled On oral amiodarone,metoprolol s/p adenosine.amiodarone,cardizem drip --Hx of Hypertension :Stable cont antihypertensives --Hyperlipidemia: Stable --Hx of [place]/CAD -s/p PCI of the circumflex and second vessel POBA of the distal LAD occlusion. Left ventricle fraction of 45-50%. --Moderate Protein calorie malnutrition: Devops Engineer following --Tobacco abuse:Cessation recommended --Morbid obesity with BMI of 43.4 now 32.0 weight reduction when stable --DVT and GI ppx: Lovenox/PPI --Disposition: wound debredement tomorrow. Awaiting acute rehabilitation placement History Interval history: Patient seen and examined medical records reviewed Patient is overwhelmed and tired off staying in the hospital Wants to go home. Patient's at the bedside Surgery planning bedside debridement of sacral pressure ulcer tomorrow Vital signs noted Hospitalist Physical - Constitutional Vitals: Temp Pulse Resp BP Pulse Ox 98.2 F 86 18 113/57 92 12/02/19 05:27 12/02/19 07:14 12/02/19 05:27 12/02/19 07:14 12/02/19 05:27 General appearance: Present: no acute distress, well-nourished, obese - EENT Eyes: Present: PERRL, EOM intact - Neck Neck: Present: supple, normal ROM - Respiratory Respiratory effort: normal Respiratory: bilateral: diminished, negative: rales, rhonchi, wheezing - Cardiovascular Rhythm: regular Heart Sounds: Present: S1 & S2 - Extremities Extremities: no ischemia, No edema - Abdominal General gastrointestinal: soft, non-tender, non-distended, normal bowel sounds - Integumentary Integumentary: Present: clear, warm - Psychiatric Psychiatric: other (anxious) - Neurologic Neurologic: moves all extremities KEATON score - Keaton Score Age > 65: (0) No Aspirin use within the Past 7 Days: (0) No 3 or more CAD Risk Factors: (1) Yes 2 or more Angina events in past 24 hrs: (1) Yes Known CAD with more than 50% Stenosis: (0) No Elevated Cardiac Markers: (0) No ST Deviation Greater than 0.5mm: (1) Yes KEATON Score: 3 Results - Labs CBC & Chem 7: 12/01/19 05:53 12/01/19 05:53 Labs: Laboratory Last Values WBC 11.6 K/mm3 (4.5-11.0) H 12/01/19 05:53 RBC 3.05 M/mm3 (3.65-5.03) L 12/01/19 05:53 Hgb 8.1 gm/dl (11.8-15.2) L 12/01/19 05:53 Hct 24.8 % (35.5-45.6) L 12/01/19 05:53 MCV 81 fl (84-94) L 12/01/19 05:53 MCH 27 pg (28-32) L 12/01/19 05:53 MCHC 33 % (32-34) 12/01/19 05:53 RDW 16.9 % (13.2-15.2) H 12/01/19 05:53 Plt Count 438 K/mm3 (140-440) 12/01/19 05:53 Lymph % (Auto) 12.4 % (13.4-35.0) L 12/01/19 05:53 [place] % (Auto) 8.6 % (0.0-7.3) H 12/01/19 05:53 Eos % (Auto) 0.3 % (0.0-4.3) 12/01/19 05:53 Baso % (Auto) 0.2 % (0.0-1.8) 12/01/19 05:53 Lymph # 1.4 K/mm3 (1.2-5.4) 12/01/19 05:53 [place] # 1.0 K/mm3 (0.0-0.8) H 12/01/19 05:53 Eos # 0.0 K/mm3 (0.0-0.4) 12/01/19 05:53 Baso # 0.0 K/mm3 (0.0-0.1) 12/01/19 05:53 Add Manual Diff Complete 10/16/19 09:20 Total Counted 100 10/16/19 09:20 Seg Neutrophils % 78.5 % (40.0-70.0) H 12/01/19 05:53 Seg Neuts % (Manual) 79.0 % (40.0-70.0) H 10/16/19 09:20 Band Neutrophils % 12.0 % 10/16/19 09:20 Lymphocytes % (Manual) 4.0 % (13.4-35.0) L 10/16/19 09:20 Reactive Lymphs % (Man) 0 % 10/16/19 09:20 Monocytes % (Manual) 2.0 % (0.0-7.3) 10/16/19 09:20 Eosinophils % (Manual) 0 % (0.0-4.3) 10/16/19 09:20 Basophils % (Manual) 0 % (0.0-1.8) 10/16/19 09:20 Metamyelocytes % 2.0 % 10/16/19 09:20 Myelocytes % 1.0 % 10/16/19 09:20 Promyelocytes % 0 % 10/16/19 09:20 Blast Cells % 0 % 10/16/19 09:20 Nucleated RBC % Not Reportable 10/16/19 09:20 Seg Neutrophils # 9.1 K/mm3 (1.8-7.7) H 12/01/19 05:53 Seg Neutrophils # Man 11.5 K/mm3 (1.8-7.7) H 10/16/19 09:20 Band Neutrophils # 1.8 K/mm3 10/16/19 09:20 Lymphocytes # (Manual) 0.6 K/mm3 (1.2-5.4) L 10/16/19 09:20 Abs React Lymphs (Man) 0.0 K/mm3 10/16/19 09:20 Monocytes # (Manual) 0.3 K/mm3 (0.0-0.8) 10/16/19 09:20 Eosinophils # (Manual) 0.0 K/mm3 (0.0-0.4) 10/16/19 09:20 Basophils # (Manual) 0.0 K/mm3 (0.0-0.1) 10/16/19 09:20 Metamyelocytes # 0.3 K/mm3 10/16/19 09:20 Myelocytes # 0.1 K/mm3 10/16/19 09:20 Promyelocytes # 0.0 K/mm3 10/16/19 09:20 Blast Cells # 0.0 K/mm3 10/16/19 09:20 WBC Morphology Not Reportable 10/16/19 09:20 Hypersegmented Neuts Not Reportable 10/16/19 09:20 Hyposegmented Neuts Not Reportable 10/16/19 09:20 Hypogranular Neuts Not Reportable 10/16/19 09:20 Smudge Cells Not Reportable 10/16/19 09:20 Toxic Granulation Not Reportable 10/16/19 09:20 Toxic Vacuolation Not Reportable 10/16/19 09:20 Dohle Bodies Not Reportable 10/16/19 09:20 Pelger-Huet Anomaly Not Reportable 10/16/19 09:20 Andres Rods Not Reportable 10/16/19 09:20 Platelet Estimate Consistent w auto 10/16/19 09:20 Clumped Platelets Not Reportable 10/16/19 09:20 Plt Clumps, EDTA Not Reportable 10/16/19 09:20 Large Platelets Not Reportable 10/16/19 09:20 Giant Platelets Not Reportable 10/16/19 09:20 Platelet Satelliting Not Reportable 10/16/19 09:20 Plt Morphology Comment Not Reportable 10/16/19 09:20 RBC Morphology Not Reportable 10/16/19 09:20 Dimorphic RBCs Not Reportable 10/16/19 09:20 Polychromasia Few 10/16/19 09:20 Hypochromasia Few 10/16/19 09:20 Poikilocytosis Not Reportable 10/16/19 09:20 Anisocytosis Not Reportable 10/16/19 09:20 Microcytosis Not Reportable 10/16/19 09:20 Macrocytosis Not Reportable 10/16/19 09:20 Spherocytes Not Reportable 10/16/19 09:20 Pappenheimer Bodies Not Reportable 10/16/19 09:20 Sickle Cells Not Reportable 10/16/19 09:20 Target Cells Few 10/16/19 09:20 Tear Drop Cells Not Reportable 10/16/19 09:20 Ovalocytes Not Reportable 10/16/19 09:20 Helmet Cells Not Reportable 10/16/19 09:20 [place] Bodies Not Reportable 10/16/19 09:20 [place] Rings Not Reportable 10/16/19 09:20 Bishnu Cells Not Reportable 10/16/19 09:20 Bite Cells Not Reportable 10/16/19 09:20 Crenated Cell Not Reportable 10/16/19 09:20 Elliptocytes Not Reportable 10/16/19 09:20 Acanthocytes (Spur) Not Reportable 10/16/19 09:20 Rouleaux Not Reportable 10/16/19 09:20 Hemoglobin C Crystals Not Reportable 10/16/19 09:20 Schistocytes Not Reportable 10/16/19 09:20 Malaria parasites Not Reportable 10/16/19 09:20 Toni Bodies Not Reportable 10/16/19 09:20 Hem Pathologist Commnt No 10/16/19 09:20 POC ABG pH 7.422 (7.35-7.45) 11/03/19 04:28 ABG pH 7.390 pH Units (7.350-7.450) 10/23/19 04:47 POC ABG pCO2 45.4 (35-45) H 11/03/19 04:28 ABG pCO2 48.4 mm Hg 10/23/19 04:47 POC ABG pO2 83 (80-105) 11/03/19 04:28 ABG pO2 68.9 mm Hg (80.0-90.0) L 10/23/19 04:47 POC ABG HCO3 29.6 (22-26 mml/L) 11/03/19 04:28 ABG HCO3 28.7 mmol/L (20.0-26.0) H 10/23/19 04:47 POC ABG Total CO2 31 (23-27mmol/L) 11/03/19 04:28 POC ABG O2 Sat 96 11/03/19 04:28 ABG O2 Saturation 96.6 % (95.0-99.0) 10/23/19 04:47 ABG O2 Content 8.8 (0.0-44) 10/23/19 04:47 POC ABG Base Excess 5 ((-2) - (+3)mmol/L) 11/03/19 04:28 ABG Base Excess 3.4 mmol/L (-2.0-3.0) H 10/23/19 04:47 ABG Hemoglobin 6.6 gm/dl (14.0-18.0) L 10/23/19 04:47 ABG Carboxyhemoglobin 2.1 % (0.0-5.0) 10/23/19 04:47 ABG Methemoglobin 0.5 % (0.0-1.5) 10/23/19 04:47 Oxyhemoglobin 94.1 % (95.0-99.0) L 10/23/19 04:47 FiO2 40 % 11/03/19 04:28 Sodium 135 mmol/L (137-145) L 12/01/19 05:53 Potassium 3.4 mmol/L (3.6-5.0) L 12/01/19 05:53 Chloride 97.3 mmol/L (98-107) L 12/01/19 05:53 Carbon Dioxide 24 mmol/L (22-30) 12/01/19 05:53 Anion Gap 17 mmol/L 12/01/19 05:53 BUN 7 mg/dL (9-20) L 12/01/19 05:53 Creatinine 0.5 mg/dL (0.8-1.5) L 12/01/19 05:53 Estimated GFR > 60 ml/min 12/01/19 05:53 BUN/Creatinine Ratio 14 % 12/01/19 05:53 Glucose 87 mg/dL (75-100) 12/01/19 05:53 POC Glucose 96 (70-105) 12/02/19 07:20 Hemoglobin A1c 5.7 % (4-6) 10/06/19 05:36 Lactic Acid 1.10 mmol/L (0.7-2.0) 10/13/19 04:20 Calcium 8.6 mg/dL (8.4-10.2) 12/01/19 05:53 Ionized Calcium 5.2 mg/dL (4.8-5.6) 10/18/19 07:41 Phosphorus 4.40 mg/dL (2.5-4.5) 12/01/19 05:53 Magnesium 1.70 mg/dL (1.7-2.3) 12/01/19 05:53 Total Bilirubin 0.40 mg/dL (0.1-1.2) 11/30/19 07:08 Direct Bilirubin 0.7 mg/dL (0-0.2) H 10/23/19 10:44 Indirect Bilirubin 0.1 mg/dL 10/23/19 10:44 AST 12 units/L (5-40) 11/30/19 07:08 ALT 9 units/L (7-56) 11/30/19 07:08 Alkaline Phosphatase 138 units/L (35-129) H 11/30/19 07:08 Ammonia 49.0 umol/L (25-60) 10/13/19 04:20 Troponin T < 0.010 ng/mL (0.00-0.029) 10/09/19 17:23 C-Reactive Protein 30.60 mg/dL (0.00-1.30) H 10/15/19 04:32 Serum Total Protein 5.2 g/dL (6.1-8.1) L 10/11/19 09:00 Total Protein 6.6 g/dL (6.3-8.2) 11/30/19 07:08 Albumin 2.2 g/dL (3.9-5) L 11/30/19 07:08 Albumin/Globulin Ratio 0.5 % 11/30/19 07:08 Prealbumin 0.030 g/L (0.200-0.400) L 10/15/19 04:32 [id number] See scanned result 10/11/19 Unknown [id number] See scanned result 10/11/19 Unknown Beta Globulins See scanned result 10/11/19 Unknown Gamma Globulins See scanned result 10/11/19 Unknown Abnorm Protein Band 1 see below 10/11/19 09:00 PEP Interpretation See scanned result 10/11/19 Unknown Triglycerides 185 mg/dL (2-149) H 10/26/19 06:15 Urine Color Yellow (Yellow) 10/26/19 Unknown Urine Turbidity Clear (Clear) 10/26/19 Unknown Urine pH 9.0 (5.0-7.0) H 10/26/19 Unknown Ur Specific [place] 1.011 (1.003-1.030) 10/26/19 Unknown Urine Protein 30 mg/dl mg/dL (Negative) 10/26/19 Unknown Urine Glucose (UA) Neg mg/dL (Negative) 10/26/19 Unknown Urine Ketones Neg mg/dL (Negative) 10/26/19 Unknown Urine Blood Neg (Negative) 10/26/19 Unknown Urine Nitrite Neg (Negative) 10/26/19 Unknown Urine Bilirubin Neg (Negative) 10/26/19 Unknown Urine Urobilinogen < 2.0 mg/dL (<2.0) 10/26/19 Unknown Ur Leukocyte Esterase Neg (Negative) 10/26/19 Unknown Urine WBC (Auto) 1.0 /HPF (0.0-6.0) 10/26/19 Unknown Urine RBC (Auto) 1.0 /HPF (0.0-6.0) 10/26/19 Unknown Urine Bacteria (Auto) 1+ /HPF (Negative) 10/11/19 06:23 Urine Mucus Few /HPF 10/26/19 Unknown Urine Eosinophils None seen (None Seen) 10/11/19 06:23 Ur Random Creatinine See scanned result 10/11/19 Unknown U Random Total Protein See scanned result 10/11/19 Unknown Urine Creatinine 116.8 mg/dL (0.1-20.0) H 10/11/19 06:23 Urine Creatinine 118.2 mg/dL (0.1-20.0) H 10/11/19 06:23 Protein/Creatinin Ratio See scanned result 10/11/19 Unknown Urine Sodium 14 mmol/L 10/11/19 06:23 Urine Total Protein 104 mg/dL (5-11.8) H 10/11/19 06:23 Urine Total Protein 105 mg/dL (5-11.8) H 10/11/19 06:23 U Abnormal Prot Band 1 See scanned result 10/11/19 Unknown U Abnormal Prot Band 2 See scanned result 10/11/19 Unknown U Abnormal Prot Band 3 See scanned result 10/11/19 Unknown Vancomycin Trough 5.7 ug/mL (5.0-20.0) 11/05/19 09:00 Random Vancomycin 9.6 ug/mL (0-40.0) 11/03/19 03:42 Digoxin 0.7 ng/mL (0.9-2.0) L 10/19/19 04:21 Blood Type A POSITIVE 11/21/19 13:32 Antibody Screen Negative 11/21/19 13:32 Crossmatch See Detail 11/21/19 13:32 Active Medications - Current Medications Current Medications: Generic Name Dose Route Start Last Admin Trade Name Freq PRN Reason Stop Dose Admin Acetaminophen 650 mg 11/24/19 12:28 11/26/19 11:50 Tylenol PO 650 mg Q6H PRN Administration Pain, Mild (1-3) Acetaminophen/Hydrocodone Bitart 1 each 11/24/19 12:27 12/02/19 07:51 Dorena 10/325 PO 1 each Q6H PRN Administration Pain, Moderate (4-6) Albuterol/Ipratropium 1 ampul 11/23/19 08:00 12/02/19 08:22 Duoneb *Not For Prn Use* IH 1 ampul TIDRT VERÓNICA Administration Amiodarone HCl 200 mg 10/23/19 13:00 12/02/19 09:20 Cordarone PO 200 mg QDAY VERÓNICA Administration Arformoterol Tartrate 15 mcg 10/06/19 08:30 12/02/19 08:21 Brovana Nebu IH 15 mcg Q12HRT VERÓNICA Administration Budesonide 0.5 mg 10/07/19 12:20 12/02/19 08:22 Pulmicort IH 0.5 mg Q12HRT VERÓNICA Administration Citalopram Hydrobromide 20 mg 10/27/19 12:00 12/02/19 09:21 Celexa PO 20 mg DAILY VERÓNICA Administration Diphenhydramine HCl 25 mg 11/17/19 20:15 11/17/19 20:58 Benadryl PO 25 mg Q6H PRN Administration Itching Enoxaparin Sodium 40 mg 11/05/19 22:00 12/01/19 23:00 Enoxaparin SUB-Q 40 mg QDAY@2200 VERÓNICA Administration Haloperidol Lactate 5 mg 10/25/19 18:22 11/12/19 03:33 Haldol IV 5 mg Q6H PRN Administration Agitation Hydralazine HCl 10 mg 10/28/19 14:09 11/02/19 15:34 Apresoline IV 10 mg Q4HR PRN Administration Hypertension Hydromorphone HCl 1 mg 11/24/19 12:28 12/01/19 18:28 Dilaudid IV 1 mg Q4H PRN Administration Pain , Severe (7-10) Insulin Human Lispro 0 unit 10/14/19 12:00 12/02/19 07:13 Humalog SUB-Q Not Given Q6HR [facility] Protocol Metoprolol Tartrate 2.5 mg 10/15/19 15:34 11/01/19 18:00 Metoprolol IV 2.5 mg Q4HR PRN Administration HR >130 Metoprolol Tartrate 12.5 mg 11/21/19 16:00 12/02/19 07:14 Metoprolol PO Not Given Q8HR [facility] Multi-Ingred Cream/Lotion/Oil/Oint 1 applic 10/14/19 02:19 Artificial Tears Ophth Oint OU Q4HR PRN Dry Eye(s) Pantoprazole Sodium 40 mg 11/20/19 10:00 12/02/19 09:21 Protonix PO 40 mg DAILY VERÓNICA Administration Sodium Chloride 10 ml 11/07/19 19:32 11/28/19 21:23 Sodium Chloride Flush Syringe 10 Ml IV 10 ml PRN PRN Administration LINE FLUSH Zolpidem Tartrate 5 mg 11/10/19 21:00 11/11/19 03:30 Ambien FEEDTUBE 5 mg QHS PRN Administration Sleep Nutrition/Malnutrition Assess - Dietary Evaluation Nutrition/Malnutrition Findings: Nutrition Notes Start: 10/08/19 11:36 Freq: Status: Active Protocol: Document 11/29/19 12:26 JENN (Rec: 11/29/19 12:47 JENN [id number]) Co-Sign 11/29/19 12:26 LP Nutrition Notes Initial or Follow up Reassessment Current Diagnosis Acute Kidney Injury,COPD, Hypertension Other Pertinent Diagnosis intra-abdominal infection, disruption of bowel anastomosis, LE edema Current Diet Regular Labs/Tests Na 136 K 3.1 BUN 6 Cr 0.5 Pertinent Medications Reviewed Height 6 ft Weight 103.2 kg Pipestem Body Weight (kg) 80.90 BMI 30.8 Weight change and time frame Wt change noted from current scale Weight Status Morbidly Obese Subjective/Other Information F/U for PO intakes. Pt stated his appetite has been good, but doesn't like the food and has outside food brought in. Pt ate about 75% of breakfast Percent of energy/protein needs met: unable to determine Burn Absent Trauma Absent GI Symptoms None Current % PO Good (75-100%) Minimum of two criteria No Fluid Accumulation Mild (non-severe) #1 Nutrition Diagnosis Increased nutrient needs ( specify in comment below) Diagnosis Progress(for reassessment Continues documentation) Is patient on ventilator? No Is Patient Ambulatory and/or Out of Bed No REE-([facility]-confined to bed) 2284.140 Kcal/Kg value to use for calculation 19 Approximate Energy Requirements Using 1961 kcal/Kg Calculation Used for Recommendations Kcal/kg Additional Notes Protein: 136-169g (1.2-1.5g/kg ) AdjBW 113kg Fluid 1 ml/kcal or per MD Nutrition Intervention Change Diet Order: Continue regular Goal #1 Meet at least 80% of energy and protein needs via PO intakes Anticipated Discharge Needs: Regular diet Follow-Up By: 12/06/19 Additional Comments F/U for PO intakes
--- NOTE | 2019-12-02 13:21 | Progress Note ---
Assessment and Plan 54 y/o male with anastomic leak 12/02/19: Pulm status stable. Will see as needed. Agree, stable for transfer to acute rehab 11/12/19: Spoke with surgery this am. Currently pleased with progress. Reviewed IR note, and they plan to remove CT today. Continue IS. Will speak with CM about looking into rehabs directly from IMCU as oppose to transferring to the floor first. 11/06: Chest tube intact. No air leak. Will ask IR if catheter can be pulled out normally (i.e. not some form of tunneled catheter). If so will have them take it out later this week. If [facility] beds available, good candidate for there, likely not quite ready for floor yet. 11/04: Stable self extubation. Continue chest tube to suction. Will likely start waterseal tomorrow. Goad maybe to get CT out Tuesday. All other drains p er surgery. Encouraged use of IS regularly at the bedside and suctioning as needed per . 11/03: Looks clinically better. Na was better on repeat labs. Spoke with and surgery to update them both. Most likely will attempt extubation in the am. Will hold feeds for about an hour in the morning prior to extubation then restart. 11/02: Repeat labs this am. Hard time believing that 2 liters of normal saline made his sodium increase that much. Also, once i discuss with surgery, may consider giving more blood. Will also hold tube feeds briefly as well. In case any procedures. Lovenox held last night. Continue vent support 11/01: Spoke with Dr. Krause this am and understand his concerns. Have started the transfer process. Most ICU's throughout the city are on diversion or full. [place] has received his Facesheet and we are awaiting to hear back from them. CXR is clear. Minimal vent settings. Will continue supportive care for now. Follow up any new ID recs given increasing white and fever. 10/31: Will check CXR tomorrow. Continue chest tube to suction. Will likely stay in until extubated. Continue drains. Explained to staff to be extremely careful with these drains so that they do not come out. 10/30: Acute on chronic respiratory failure requiring reintubation. Appreciate Anesthesia assistance as he was a difficult intubation when we had to change his tube out about 1 week ago. Will continue on 100% until after Scans and then start to wean back down. CXR yesterday looked like pulmonary edema but improved today with positive pressure. Continue supportive care and await results of scans. 10/29: Discussed today on rounds. Patient had some issues over the weekend with the ICE chips and liquids. Will obtain speech consult/eval prior to restarting clears today. Spoke with nutrition and they will adjust tube feeds with new goal. Once at goal will start to taper off TPN. ordered Incentive madhu to bedside. Will also restart home dose of elaine today. pain control and drainage monitoring. Will continue ICU care. 10/26: Patient stable overall. Not ready for floor. Would be ok with step down if beds are needed. If spikes temp again will order blood cultures x2, urine culture, UA and repeat CXR. Gave an additional 40 of lasix this am. Will give more potassium replacement. Continue trickle feeds for now. Will continue PO meds and restart home dose of citalopram. Wean FiO2 and flow for sats >88%. Mildly hypertensive but this was secondary to agitation. Normalizing now. 10/25: Will extubate today. Will use HFNC if distress or hypoxemia is noted. Not a good candidate for bipap given his recent abdominal issues. Spoke with who is now at bedside and surgery. Will continue to attempt to achieve net negative state daily. Hold on further albumin administration. Hypernatremia is iatrogenic from lasix administration Worse case scenario, will re-intubate with anesthesia. 10/24: Responding well to lasix and protein therapy. Will give 2 more doses of lasix today. Consider one for tonight as well. Last albumin today at 1800. CXR is stable, still with layering bilateral pleural effusions. Will reassess again tomorrow. Reviewed all other it infrastructure consultant notes. Spoke with sisters at bedside, updated and spoke with surgery. 10/23: Long discussion with surgery and via phone. Anasarca is likely from decreased oncotic pressure and immobility of several days now that abdomen is finally closed. Now fluid is essentially leaking into the interstitium now that the abdomen is shut and there is increased intra-abdominal pressure. Total Protein is 4.5 and albumin is 1.2. This is to be expected given current illness. Will attempt to increase oncotic pressure with 2 units of PRBC's and albumin infusions for the next 24 hours starting at midnight tonight. Will give lasix inbetween transfusions and then again tonight. CXR is consistent with pulmonary edema volume overload. Will continue vent for now and after significant volume removal then will attempt extubation. Discussed with and she understands. Will continue to monitor. Agree with trickle feeds and cards has switched amio over to PO to be given through the G-tube. If tolerates, hopeful to be rid of TPN soon as this is necessary but excessive volume as well. 10/22: Added diprovan as more sedation was needed. Hopefully once closed and no leaks, patient can be extubated. Cards very concerned about length of time for IV amio. Will discuss with surgery the time frame that gut can be used. 10/21: Will hold on weaning until abdomen is closed, especially knowing mental status is good. Will focus on pain control. Replace electrolytes. Appreciate Surgery recs and detail. Follow up any new recs from cards. Or tomorrow for closure Subjective Date of service: 12/02/19 Principal diagnosis: acute renal failure Interval history: No acute events. Objective Vital Signs - 12hr 12/02/19 12/02/19 12/02/19 05:27 07:14 08:00 Temperature 98.2 F Pulse Rate 86 86 Pulse Rate [ 94 H Anterior Bilateral Throughout] Respiratory 18 Rate Respiratory 22 Rate [Anterior Bilateral Throughout] Blood Pressure 113/57 113/57 O2 Sat by Pulse 92 Oximetry 12/02/19 12:18 Temperature 98.0 F Pulse Rate 102 H Pulse Rate [ Anterior Bilateral Throughout] Respiratory 18 Rate Respiratory Rate [Anterior Bilateral Throughout] Blood Pressure 100/54 O2 Sat by Pulse 96 Oximetry Constitutional: no acute distress, alert, other (obese) Eyes: non-icteric ENT: oropharynx moist Neck: supple Effort: normal Ascultation: Bilateral: diminished breath sounds (bases) Cardiovascular: regular rate and rhythm (no mrg) Gastrointestinal: tender, other (obese, distended, ostomy in place; wound vac in place) Integumentary: normal Extremities: no cyanosis, pink and warm, edema (1+ bilateral LE edema) Neurologic: normal mental status, non-focal exam, pupils equal and round Psychiatric: mood appropriate, affect normal CBC and BMP: 12/01/19 05:53 12/01/19 05:53 ABG, PT/INR, D-dimer: ABG POC ABG pH 7.422 (7.35-7.45) 11/03/19 04:28 ABG pH 7.390 pH Units (7.350-7.450) 10/23/19 04:47 POC ABG pCO2 45.4 (35-45) H 11/03/19 04:28 ABG pCO2 48.4 mm Hg 10/23/19 04:47 POC ABG pO2 83 (80-105) 11/03/19 04:28 ABG pO2 68.9 mm Hg (80.0-90.0) L 10/23/19 04:47 POC ABG HCO3 29.6 (22-26 mml/L) 11/03/19 04:28 POC ABG Total CO2 31 (23-27mmol/L) 11/03/19 04:28 POC ABG O2 Sat 96 11/03/19 04:28 ABG O2 Saturation 96.6 % (95.0-99.0) 10/23/19 04:47 Abnormal lab findings: Abnormal Labs 10/06/19 10/06/19 10/07/19 05:36 05:36 05:54 WBC 21.8 H 21.5 H RBC 3.55 L Hgb 10.9 L Hct 32.7 L MCV MCH MCHC RDW Plt Count Lymph % (Auto) Casey % (Auto) Lymph # Casey # Seg Neutrophils % Seg Neuts % (Manual) 91.0 H Lymphocytes % (Manual) 2.0 L Seg Neutrophils # Seg Neutrophils # Man 19.8 H Lymphocytes # (Manual) 0.4 L Monocytes # (Manual) 1.1 H POC ABG pH ABG pH POC ABG pCO2 POC ABG pO2 ABG pO2 ABG HCO3 ABG Base Excess ABG Hemoglobin Oxyhemoglobin Sodium 135 L Potassium Chloride 95.9 L Carbon Dioxide BUN Creatinine 0.7 L Glucose POC Glucose Calcium Phosphorus Magnesium Direct Bilirubin AST Alkaline Phosphatase C-Reactive Protein Serum Total Protein Total Protein 5.7 L Albumin 2.5 L Prealbumin Lggny-3-Slswxrqks Ngrqr-0-Azxvqytxt Gamma Globulins PEP Interpretation Triglycerides Urine pH Urine Creatinine Urine Total Protein Vancomycin Trough Digoxin Crossmatch 10/07/19 10/09/19 10/09/19 05:54 10:52 10:52 WBC 16.6 H RBC Hgb Hct MCV MCH MCHC RDW Plt Count 498 H Lymph % (Auto) Casey % (Auto) Lymph # Casey # Seg Neutrophils % Seg Neuts % (Manual) 93.0 H Lymphocytes % (Manual) 5.0 L Seg Neutrophils # Seg Neutrophils # Man 15.4 H Lymphocytes # (Manual) 0.8 L Monocytes # (Manual) POC ABG pH ABG pH POC ABG pCO2 POC ABG pO2 ABG pO2 ABG HCO3 ABG Base Excess ABG Hemoglobin Oxyhemoglobin Sodium Potassium Chloride 97.9 L Carbon Dioxide 20 L D BUN 23 H Creatinine 1.7 H D Glucose 109 H POC Glucose Calcium 8.1 L Phosphorus Magnesium Direct Bilirubin AST Alkaline Phosphatase C-Reactive Protein Serum Total Protein Total Protein Albumin Prealbumin Etafm-1-Slnlaikva Ngxwf-6-Sxvhfmkbj Gamma Globulins PEP Interpretation Triglycerides Urine pH Urine Creatinine Urine Total Protein Vancomycin Trough Digoxin Crossmatch 10/09/19 10/10/19 10/10/19 17:23 05:30 05:30 WBC 14.6 H RBC Hgb 11.1 L Hct 33.5 L MCV MCH MCHC RDW Plt Count 527 H Lymph % (Auto) Casey % (Auto) Lymph # Casey # Seg Neutrophils % Seg Neuts % (Manual) Lymphocytes % (Manual) Seg Neutrophils # Seg Neutrophils # Man Lymphocytes # (Manual) Monocytes # (Manual) POC ABG pH ABG pH POC ABG pCO2 POC ABG pO2 ABG pO2 ABG HCO3 ABG Base Excess ABG Hemoglobin Oxyhemoglobin Sodium 130 L D Potassium 5.1 H Chloride 90.0 L 91.0 L Carbon Dioxide 20 L 20 L BUN 27 H 35 H Creatinine 1.9 H 2.0 H Glucose 104 H POC Glucose Calcium Phosphorus Magnesium Direct Bilirubin AST Alkaline Phosphatase C-Reactive Protein Serum Total Protein Total Protein Albumin Prealbumin Gsmbc-7-Wuepegfog Ufgkt-2-Kqekxzebu Gamma Globulins PEP Interpretation Triglycerides Urine pH Urine Creatinine Urine Total Protein Vancomycin Trough Digoxin Crossmatch 10/10/19 10/10/19 10/11/19 08:33 08:44 05:41 WBC 13.2 H RBC Hgb 11.3 L Hct 33.8 L MCV MCH MCHC RDW 15.3 H Plt Count 543 H Lymph % (Auto) Casey % (Auto) Lymph # Casey # Seg Neutrophils % Seg Neuts % (Manual) Lymphocytes % (Manual) Seg Neutrophils # Seg Neutrophils # Man Lymphocytes # (Manual) Monocytes # (Manual) POC ABG pH ABG pH POC ABG pCO2 POC ABG pO2 ABG pO2 ABG HCO3 ABG Base Excess ABG Hemoglobin Oxyhemoglobin Sodium Potassium Chloride Carbon Dioxide BUN Creatinine Glucose 113 H POC Glucose 117 H Calcium Phosphorus Magnesium Direct Bilirubin AST Alkaline Phosphatase C-Reactive Protein Serum Total Protein Total Protein Albumin Prealbumin Surhv-9-Ekshtfmvc Fpqne-6-Vekmpfudz Gamma Globulins PEP Interpretation Triglycerides Urine pH Urine Creatinine Urine Total Protein Vancomycin Trough Digoxin Crossmatch 10/11/19 10/11/19 10/11/19 05:41 06:23 06:23 WBC RBC Hgb Hct MCV MCH MCHC RDW Plt Count Lymph % (Auto) Casey % (Auto) Lymph # Casey # Seg Neutrophils % Seg Neuts % (Manual) Lymphocytes % (Manual) Seg Neutrophils # Seg Neutrophils # Man Lymphocytes # (Manual) Monocytes # (Manual) POC ABG pH ABG pH POC ABG pCO2 POC ABG pO2 ABG pO2 ABG HCO3 ABG Base Excess ABG Hemoglobin Oxyhemoglobin Sodium 134 L Potassium Chloride 96.3 L Carbon Dioxide BUN 37 H Creatinine Glucose 58 L POC Glucose Calcium Phosphorus 4.90 H Magnesium Direct Bilirubin AST Alkaline Phosphatase C-Reactive Protein Serum Total Protein Total Protein Albumin Prealbumin Okdzn-5-Ssrglfkll Qzkeq-5-Pxzeyymfn Gamma Globulins PEP Interpretation Triglycerides Urine pH Urine Creatinine 118.2 H 116.8 H Urine Total Protein 105 H 104 H Vancomycin Trough Digoxin Crossmatch 10/11/19 10/12/19 10/12/19 09:00 06:09 06:09 WBC 13.8 H RBC 3.39 L Hgb 10.2 L Hct 30.9 L MCV MCH MCHC RDW 15.5 H Plt Count 459 H Lymph % (Auto) Casey % (Auto) Lymph # Casey # Seg Neutrophils % Seg Neuts % (Manual) Lymphocytes % (Manual) Seg Neutrophils # Seg Neutrophils # Man Lymphocytes # (Manual) Monocytes # (Manual) POC ABG pH ABG pH POC ABG pCO2 POC ABG pO2 ABG pO2 ABG HCO3 ABG Base Excess ABG Hemoglobin Oxyhemoglobin Sodium 131 L Potassium Chloride 96.2 L Carbon Dioxide 21 L BUN 43 H Creatinine Glucose 72 L POC Glucose Calcium Phosphorus Magnesium Direct Bilirubin AST Alkaline Phosphatase C-Reactive Protein Serum Total Protein 5.2 L Total Protein Albumin 1.9 L Prealbumin Spmpo-6-Fvhlehfqs 0.9 H Unugn-1-Onhnotdch 1.0 H Gamma Globulins 0.7 L PEP Interpretation see below H Triglycerides Urine pH Urine Creatinine Urine Total Protein Vancomycin Trough Digoxin Crossmatch 10/12/19 10/12/19 10/12/19 08:20 09:30 09:30 WBC RBC Hgb Hct MCV MCH MCHC RDW Plt Count Lymph % (Auto) Casey % (Auto) Lymph # Casey # Seg Neutrophils % Seg Neuts % (Manual) Lymphocytes % (Manual) Seg Neutrophils # Seg Neutrophils # Man Lymphocytes # (Manual) Monocytes # (Manual) POC ABG pH ABG pH POC ABG pCO2 POC ABG pO2 63 L ABG pO2 ABG HCO3 ABG Base Excess ABG Hemoglobin Oxyhemoglobin Sodium Potassium Chloride Carbon Dioxide BUN Creatinine Glucose POC Glucose Calcium Phosphorus Magnesium 2.50 H Direct Bilirubin 0.3 H AST Alkaline Phosphatase C-Reactive Protein Serum Total Protein Total Protein 5.1 L Albumin 2.2 L Prealbumin Eqdjx-3-Vqxmcvqbo Aydlq-8-Deejgqvhb Gamma Globulins PEP Interpretation Triglycerides Urine pH Urine Creatinine Urine Total Protein Vancomycin Trough Digoxin Crossmatch 10/13/19 10/13/19 10/13/19 04:20 04:20 13:20 WBC 15.7 H RBC 3.64 L Hgb 10.9 L Hct 33.1 L MCV MCH MCHC RDW 15.8 H Plt Count 488 H Lymph % (Auto) Casey % (Auto) Lymph # Casey # Seg Neutrophils % Seg Neuts % (Manual) Lymphocytes % (Manual) Seg Neutrophils # Seg Neutrophils # Man Lymphocytes # (Manual) Monocytes # (Manual) POC ABG pH ABG pH POC ABG pCO2 POC ABG pO2 ABG pO2 ABG HCO3 ABG Base Excess ABG Hemoglobin Oxyhemoglobin Sodium Potassium Chloride Carbon Dioxide BUN 28 H Creatinine Glucose POC Glucose Calcium Phosphorus Magnesium Direct Bilirubin AST Alkaline Phosphatase C-Reactive Protein Serum Total Protein Total Protein Albumin Prealbumin Yhotc-7-Dbpekscxt Qkjmh-6-Yddeaylva Gamma Globulins PEP Interpretation Triglycerides Urine pH Urine Creatinine Urine Total Protein Vancomycin Trough Digoxin Crossmatch See Detail 10/13/19 10/13/19 10/14/19 18:24 20:05 04:47 WBC 24.2 H RBC Hgb 10.9 L Hct 34.2 L MCV MCH MCHC RDW 17.0 H Plt Count 442 H Lymph % (Auto) Casey % (Auto) Lymph # Casey # Seg Neutrophils % Seg Neuts % (Manual) Lymphocytes % (Manual) Seg Neutrophils # Seg Neutrophils # Man Lymphocytes # (Manual) Monocytes # (Manual) POC ABG pH ABG pH 7.180 L* 7.278 L POC ABG pCO2 POC ABG pO2 ABG pO2 130.7 H ABG HCO3 ABG Base Excess -6.5 L -6.5 L ABG Hemoglobin 12.2 L 12.3 L Oxyhemoglobin 92.9 L Sodium Potassium Chloride Carbon Dioxide BUN Creatinine Glucose POC Glucose Calcium Phosphorus Magnesium Direct Bilirubin AST Alkaline Phosphatase C-Reactive Protein Serum Total Protein Total Protein Albumin Prealbumin Xjblo-0-Utgmvbjpn Cahpz-0-Auajawdhb Gamma Globulins PEP Interpretation Triglycerides Urine pH Urine Creatinine Urine Total Protein Vancomycin Trough Digoxin Crossmatch 10/14/19 10/14/19 10/14/19 04:47 05:40 10:14 WBC RBC Hgb Hct MCV MCH MCHC RDW Plt Count Lymph % (Auto) Casey % (Auto) Lymph # Casey # Seg Neutrophils % Seg Neuts % (Manual) Lymphocytes % (Manual) Seg Neutrophils # Seg Neutrophils # Man Lymphocytes # (Manual) Monocytes # (Manual) POC ABG pH ABG pH POC ABG pCO2 POC ABG pO2 ABG pO2 76.3 L ABG HCO3 19.1 L ABG Base Excess -5.8 L ABG Hemoglobin 10.9 L Oxyhemoglobin 93.4 L Sodium Potassium 5.1 H D Chloride 109.2 H Carbon Dioxide 17 L BUN 38 H Creatinine 1.8 H D Glucose 104 H POC Glucose Calcium 7.4 L Phosphorus 5.60 H Magnesium Direct Bilirubin AST Alkaline Phosphatase C-Reactive Protein Serum Total Protein Total Protein Albumin Prealbumin Vovwx-6-Ckwhzpqoh Amfkh-0-Hrwggyqab Gamma Globulins PEP Interpretation Triglycerides Urine pH Urine Creatinine Urine Total Protein Vancomycin Trough Digoxin Crossmatch 10/14/19 10/15/19 10/15/19 23:46 04:32 04:32 WBC 15.5 H RBC 2.89 L Hgb 8.8 L Hct 27.3 L D MCV MCH MCHC RDW 16.6 H Plt Count Lymph % (Auto) Casey % (Auto) Lymph # Casey # Seg Neutrophils % Seg Neuts % (Manual) Lymphocytes % (Manual) Seg Neutrophils # Seg Neutrophils # Man Lymphocytes # (Manual) Monocytes # (Manual) POC ABG pH ABG pH POC ABG pCO2 POC ABG pO2 ABG pO2 ABG HCO3 ABG Base Excess ABG Hemoglobin Oxyhemoglobin Sodium 147 H Potassium Chloride 114.0 H Carbon Dioxide 19 L BUN 42 H Creatinine Glucose 112 H POC Glucose 113 H Calcium 7.3 L Phosphorus Magnesium Direct Bilirubin AST 72 H Alkaline Phosphatase C-Reactive Protein 30.60 H Serum Total Protein Total Protein 4.0 L D Albumin 1.7 L Prealbumin 0.030 L Ksylf-2-Covntkfzl Mtmxb-2-Epswqgyck Gamma Globulins PEP Interpretation Triglycerides Urine pH Urine Creatinine Urine Total Protein Vancomycin Trough Digoxin Crossmatch 10/15/19 10/15/19 10/15/19 05:30 12:08 17:23 WBC RBC Hgb Hct MCV MCH MCHC RDW Plt Count Lymph % (Auto) Casey % (Auto) Lymph # Casey # Seg Neutrophils % Seg Neuts % (Manual) Lymphocytes % (Manual) Seg Neutrophils # Seg Neutrophils # Man Lymphocytes # (Manual) Monocytes # (Manual) POC ABG pH ABG pH 7.296 L POC ABG pCO2 POC ABG pO2 ABG pO2 114.7 H ABG HCO3 ABG Base Excess -3.7 L ABG Hemoglobin 8.9 L Oxyhemoglobin Sodium Potassium Chloride Carbon Dioxide BUN Creatinine Glucose POC Glucose 106 H 106 H Calcium Phosphorus Magnesium Direct Bilirubin AST Alkaline Phosphatase C-Reactive Protein Serum Total Protein Total Protein Albumin Prealbumin Vpopa-7-Ghskqvbma Xhcdi-4-Xdjxxehox Gamma Globulins PEP Interpretation Triglycerides Urine pH Urine Creatinine Urine Total Protein Vancomycin Trough Digoxin Crossmatch 10/16/19 10/16/19 10/16/19 00:07 04:44 05:24 WBC RBC Hgb Hct MCV MCH MCHC RDW Plt Count Lymph % (Auto) Casey % (Auto) Lymph # Casey # Seg Neutrophils % Seg Neuts % (Manual) Lymphocytes % (Manual) Seg Neutrophils # Seg Neutrophils # Man Lymphocytes # (Manual) Monocytes # (Manual) POC ABG pH ABG pH POC ABG pCO2 POC ABG pO2 ABG pO2 ABG HCO3 ABG Base Excess ABG Hemoglobin Oxyhemoglobin Sodium 150 H Potassium Chloride 115.8 H Carbon Dioxide BUN 35 H Creatinine Glucose 129 H POC Glucose 119 H 129 H Calcium 7.3 L Phosphorus 1.80 L D Magnesium Direct Bilirubin AST Alkaline Phosphatase C-Reactive Protein Serum Total Protein Total Protein Albumin Prealbumin Bjoct-3-Afghhlmgo Jyskv-2-Dwgqpghwf Gamma Globulins PEP Interpretation Triglycerides Urine pH Urine Creatinine Urine Total Protein Vancomycin Trough Digoxin Crossmatch 10/16/19 10/16/19 10/16/19 06:53 09:20 11:58 WBC 14.6 H RBC 2.70 L Hgb 8.1 L Hct 25.2 L MCV MCH MCHC RDW 16.7 H Plt Count Lymph % (Auto) Casey % (Auto) Lymph # Casey # Seg Neutrophils % Seg Neuts % (Manual) 79.0 H Lymphocytes % (Manual) 4.0 L Seg Neutrophils # Seg Neutrophils # Man 11.5 H Lymphocytes # (Manual) 0.6 L Monocytes # (Manual) POC ABG pH ABG pH POC ABG pCO2 47.0 H POC ABG pO2 ABG pO2 ABG HCO3 ABG Base Excess ABG Hemoglobin Oxyhemoglobin Sodium Potassium Chloride Carbon Dioxide BUN Creatinine Glucose POC Glucose Calcium Phosphorus Magnesium Direct Bilirubin AST Alkaline Phosphatase C-Reactive Protein Serum Total Protein Total Protein Albumin Prealbumin Bobbj-6-Vwoilfvtw Pdgov-9-Mrnjlpoff Gamma Globulins PEP Interpretation Triglycerides Urine pH Urine Creatinine Urine Total Protein Vancomycin Trough Digoxin Crossmatch See Detail 10/16/19 10/16/19 10/16/19 15:23 17:50 23:58 WBC RBC Hgb Hct MCV MCH MCHC RDW Plt Count Lymph % (Auto) Casey % (Auto) Lymph # Casey # Seg Neutrophils % Seg Neuts % (Manual) Lymphocytes % (Manual) Seg Neutrophils # Seg Neutrophils # Man Lymphocytes # (Manual) Monocytes # (Manual) POC ABG pH ABG pH POC ABG pCO2 POC ABG pO2 ABG pO2 ABG HCO3 ABG Base Excess ABG Hemoglobin Oxyhemoglobin Sodium Potassium Chloride Carbon Dioxide BUN Creatinine Glucose POC Glucose 221 H 201 H 179 H Calcium Phosphorus Magnesium Direct Bilirubin AST Alkaline Phosphatase C-Reactive Protein Serum Total Protein Total Protein Albumin Prealbumin Anuko-7-Vaimzcnyf Iiswj-0-Stzrdhuny Gamma Globulins PEP Interpretation Triglycerides Urine pH Urine Creatinine Urine Total Protein Vancomycin Trough Digoxin Crossmatch 10/17/19 10/17/19 10/17/19 04:08 04:08 05:41 WBC 22.3 H RBC 3.35 L Hgb 10.0 L Hct 31.2 L D MCV MCH MCHC RDW 16.1 H Plt Count Lymph % (Auto) Casey % (Auto) Lymph # Casey # Seg Neutrophils % Seg Neuts % (Manual) Lymphocytes % (Manual) Seg Neutrophils # Seg Neutrophils # Man Lymphocytes # (Manual) Monocytes # (Manual) POC ABG pH 7.310 L ABG pH POC ABG pCO2 52.8 H POC ABG pO2 70 L ABG pO2 ABG HCO3 ABG Base Excess ABG Hemoglobin Oxyhemoglobin Sodium 147 H Potassium Chloride 114.9 H Carbon Dioxide BUN 36 H Creatinine Glucose 165 H POC Glucose Calcium 6.9 L Phosphorus 2.20 L D Magnesium Direct Bilirubin AST Alkaline Phosphatase C-Reactive Protein Serum Total Protein Total Protein Albumin Prealbumin Dmmfu-0-Jsbgohgji Jlgtb-5-Yvpniuhwd Gamma Globulins PEP Interpretation Triglycerides Urine pH Urine Creatinine Urine Total Protein Vancomycin Trough Digoxin Crossmatch 10/17/19 10/17/19 10/17/19 05:42 11:33 18:17 WBC RBC Hgb Hct MCV MCH MCHC RDW Plt Count Lymph % (Auto) Casey % (Auto) Lymph # Casey # Seg Neutrophils % Seg Neuts % (Manual) Lymphocytes % (Manual) Seg Neutrophils # Seg Neutrophils # Man Lymphocytes # (Manual) Monocytes # (Manual) POC ABG pH ABG pH POC ABG pCO2 POC ABG pO2 ABG pO2 ABG HCO3 ABG Base Excess ABG Hemoglobin Oxyhemoglobin Sodium Potassium Chloride Carbon Dioxide BUN Creatinine Glucose POC Glucose 149 H 154 H 163 H Calcium Phosphorus Magnesium Direct Bilirubin AST Alkaline Phosphatase C-Reactive Protein Serum Total Protein Total Protein Albumin Prealbumin Upenp-8-Accrwluvi Keset-7-Uquyvgump Gamma Globulins PEP Interpretation Triglycerides Urine pH Urine Creatinine Urine Total Protein Vancomycin Trough Digoxin Crossmatch 10/17/19 10/18/19 10/18/19 23:34 03:29 04:50 WBC RBC Hgb Hct MCV MCH MCHC RDW Plt Count Lymph % (Auto) Casey % (Auto) Lymph # Casey # Seg Neutrophils % Seg Neuts % (Manual) Lymphocytes % (Manual) Seg Neutrophils # Seg Neutrophils # Man Lymphocytes # (Manual) Monocytes # (Manual) POC ABG pH ABG pH POC ABG pCO2 POC ABG pO2 ABG pO2 78.8 L ABG HCO3 ABG Base Excess ABG Hemoglobin 8.8 L Oxyhemoglobin Sodium Potassium Chloride 111.8 H Carbon Dioxide BUN 27 H Creatinine 0.6 L Glucose 140 H POC Glucose 135 H Calcium 7.1 L Phosphorus 1.80 L Magnesium Direct Bilirubin AST Alkaline Phosphatase C-Reactive Protein Serum Total Protein Total Protein Albumin Prealbumin Iioyc-0-Nezewwghh Dmrml-2-Bgmfmtaix Gamma Globulins PEP Interpretation Triglycerides Urine pH Urine Creatinine Urine Total Protein Vancomycin Trough Digoxin Crossmatch 10/18/19 10/18/19 10/18/19 05:45 11:19 18:26 WBC RBC Hgb Hct MCV MCH MCHC RDW Plt Count Lymph % (Auto) Casey % (Auto) Lymph # Casey # Seg Neutrophils % Seg Neuts % (Manual) Lymphocytes % (Manual) Seg Neutrophils # Seg Neutrophils # Man Lymphocytes # (Manual) Monocytes # (Manual) POC ABG pH ABG pH POC ABG pCO2 POC ABG pO2 ABG pO2 ABG HCO3 ABG Base Excess ABG Hemoglobin Oxyhemoglobin Sodium Potassium Chloride Carbon Dioxide BUN Creatinine Glucose POC Glucose 145 H 152 H 125 H Calcium Phosphorus Magnesium Direct Bilirubin AST Alkaline Phosphatase C-Reactive Protein Serum Total Protein Total Protein Albumin Prealbumin Akpav-3-Cqzzmpian Kogmt-5-Jweoamhvj Gamma Globulins PEP Interpretation Triglycerides Urine pH Urine Creatinine Urine Total Protein Vancomycin Trough Digoxin Crossmatch 10/18/19 10/19/19 10/19/19 23:27 04:21 04:21 WBC RBC Hgb Hct MCV MCH MCHC RDW Plt Count Lymph % (Auto) Casey % (Auto) Lymph # Casey # Seg Neutrophils % Seg Neuts % (Manual) Lymphocytes % (Manual) Seg Neutrophils # Seg Neutrophils # Man Lymphocytes # (Manual) Monocytes # (Manual) POC ABG pH ABG pH POC ABG pCO2 POC ABG pO2 ABG pO2 ABG HCO3 ABG Base Excess ABG Hemoglobin Oxyhemoglobin Sodium Potassium Chloride 108.4 H Carbon Dioxide BUN 22 H Creatinine 0.5 L Glucose 123 H POC Glucose 127 H Calcium 7.4 L Phosphorus 1.80 L Magnesium Direct Bilirubin AST Alkaline Phosphatase C-Reactive Protein Serum Total Protein Total Protein Albumin Prealbumin Iqdlm-7-Kryyexnba Vcjhg-7-Hyxhubirt Gamma Globulins PEP Interpretation Triglycerides Urine pH Urine Creatinine Urine Total Protein Vancomycin Trough Digoxin 0.7 L Crossmatch 10/19/19 10/19/19 10/19/19 05:00 05:35 11:26 WBC RBC Hgb Hct MCV MCH MCHC RDW Plt Count Lymph % (Auto) Casey % (Auto) Lymph # Casey # Seg Neutrophils % Seg Neuts % (Manual) Lymphocytes % (Manual) Seg Neutrophils # Seg Neutrophils # Man Lymphocytes # (Manual) Monocytes # (Manual) POC ABG pH ABG pH 7.456 H POC ABG pCO2 POC ABG pO2 ABG pO2 78.8 L ABG HCO3 ABG Base Excess ABG Hemoglobin 5.6 L Oxyhemoglobin Sodium Potassium Chloride Carbon Dioxide BUN Creatinine Glucose POC Glucose 124 H 111 H Calcium Phosphorus Magnesium Direct Bilirubin AST Alkaline Phosphatase C-Reactive Protein Serum Total Protein Total Protein Albumin Prealbumin Uqpmb-9-Qopmgznvb Sxcxd-2-Ekhurzqhi Gamma Globulins PEP Interpretation Triglycerides Urine pH Urine Creatinine Urine Total Protein Vancomycin Trough Digoxin Crossmatch 10/19/19 10/20/19 10/20/19 23:23 04:50 05:17 WBC RBC Hgb Hct MCV MCH MCHC RDW Plt Count Lymph % (Auto) Casey % (Auto) Lymph # Casey # Seg Neutrophils % Seg Neuts % (Manual) Lymphocytes % (Manual) Seg Neutrophils # Seg Neutrophils # Man Lymphocytes # (Manual) Monocytes # (Manual) POC ABG pH ABG pH POC ABG pCO2 POC ABG pO2 ABG pO2 ABG HCO3 ABG Base Excess ABG Hemoglobin Oxyhemoglobin Sodium Potassium Chloride 108.1 H Carbon Dioxide BUN Creatinine 0.4 L Glucose 134 H POC Glucose 129 H 123 H Calcium 7.1 L Phosphorus Magnesium Direct Bilirubin AST Alkaline Phosphatase C-Reactive Protein Serum Total Protein Total Protein Albumin Prealbumin Ddoif-3-Ycfbiuzsv Ywfos-7-Joipixwmy Gamma Globulins PEP Interpretation Triglycerides Urine pH Urine Creatinine Urine Total Protein Vancomycin Trough Digoxin Crossmatch 10/20/19 10/20/19 10/21/19 11:40 19:06 05:08 WBC RBC Hgb Hct MCV MCH MCHC RDW Plt Count Lymph % (Auto) Casey % (Auto) Lymph # Casey # Seg Neutrophils % Seg Neuts % (Manual) Lymphocytes % (Manual) Seg Neutrophils # Seg Neutrophils # Man Lymphocytes # (Manual) Monocytes # (Manual) POC ABG pH ABG pH POC ABG pCO2 POC ABG pO2 ABG pO2 ABG HCO3 ABG Base Excess ABG Hemoglobin Oxyhemoglobin Sodium Potassium Chloride Carbon Dioxide BUN Creatinine Glucose POC Glucose 139 H 117 H 131 H Calcium Phosphorus Magnesium Direct Bilirubin AST Alkaline Phosphatase C-Reactive Protein Serum Total Protein Total Protein Albumin Prealbumin Dqyen-6-Stbahlkoy Pqwcz-5-Xfzgsfmfk Gamma Globulins PEP Interpretation Triglycerides Urine pH Urine Creatinine Urine Total Protein Vancomycin Trough Digoxin Crossmatch 10/21/19 10/21/19 10/21/19 05:30 12:04 17:31 WBC RBC Hgb Hct MCV MCH MCHC RDW Plt Count Lymph % (Auto) Casey % (Auto) Lymph # Casey # Seg Neutrophils % Seg Neuts % (Manual) Lymphocytes % (Manual) Seg Neutrophils # Seg Neutrophils # Man Lymphocytes # (Manual) Monocytes # (Manual) POC ABG pH ABG pH POC ABG pCO2 POC ABG pO2 ABG pO2 ABG HCO3 ABG Base Excess ABG Hemoglobin Oxyhemoglobin Sodium Potassium Chloride 107.8 H Carbon Dioxide BUN Creatinine 0.5 L Glucose 119 H POC Glucose 119 H 110 H Calcium 7.6 L Phosphorus Magnesium Direct Bilirubin AST Alkaline Phosphatase C-Reactive Protein Serum Total Protein Total Protein Albumin Prealbumin Rqvoc-8-Wcpefhcnx Jyhoh-7-Dxhwdljoj Gamma Globulins PEP Interpretation Triglycerides Urine pH Urine Creatinine Urine Total Protein Vancomycin Trough Digoxin Crossmatch 10/22/19 10/22/19 10/22/19 05:14 05:37 12:07 WBC RBC Hgb Hct MCV MCH MCHC RDW Plt Count Lymph % (Auto) Casey % (Auto) Lymph # Casey # Seg Neutrophils % Seg Neuts % (Manual) Lymphocytes % (Manual) Seg Neutrophils # Seg Neutrophils # Man Lymphocytes # (Manual) Monocytes # (Manual) POC ABG pH ABG pH POC ABG pCO2 POC ABG pO2 ABG pO2 ABG HCO3 ABG Base Excess ABG Hemoglobin Oxyhemoglobin Sodium Potassium Chloride Carbon Dioxide BUN Creatinine 0.5 L Glucose 116 H POC Glucose 110 H 126 H Calcium 7.7 L Phosphorus Magnesium Direct Bilirubin AST Alkaline Phosphatase C-Reactive Protein Serum Total Protein Total Protein Albumin Prealbumin Uvjmm-9-Dbxtecxrr Fvjde-4-Nhfzllbfp Gamma Globulins PEP Interpretation Triglycerides Urine pH Urine Creatinine Urine Total Protein Vancomycin Trough Digoxin Crossmatch 10/22/19 10/22/19 10/23/19 18:36 23:19 04:39 WBC RBC Hgb Hct MCV MCH MCHC RDW Plt Count Lymph % (Auto) Casey % (Auto) Lymph # Casey # Seg Neutrophils % Seg Neuts % (Manual) Lymphocytes % (Manual) Seg Neutrophils # Seg Neutrophils # Man Lymphocytes # (Manual) Monocytes # (Manual) POC ABG pH ABG pH POC ABG pCO2 POC ABG pO2 ABG pO2 ABG HCO3 ABG Base Excess ABG Hemoglobin Oxyhemoglobin Sodium Potassium Chloride Carbon Dioxide BUN Creatinine Glucose POC Glucose 120 H 127 H 112 H Calcium Phosphorus Magnesium Direct Bilirubin AST Alkaline Phosphatase C-Reactive Protein Serum Total Protein Total Protein Albumin Prealbumin Aftwc-3-Prhoqelbt Xqswg-7-Versluuud Gamma Globulins PEP Interpretation Triglycerides Urine pH Urine Creatinine Urine Total Protein Vancomycin Trough Digoxin Crossmatch 10/23/19 10/23/19 10/23/19 04:47 05:15 10:44 WBC 18.3 H RBC 2.33 L Hgb 7.0 L Hct 21.5 L MCV MCH MCHC RDW 16.2 H Plt Count Lymph % (Auto) 4.9 L Casey % (Auto) 8.1 H Lymph # 0.9 L Casey # 1.5 H Seg Neutrophils % 86.7 H Seg Neuts % (Manual) Lymphocytes % (Manual) Seg Neutrophils # 15.9 H Seg Neutrophils # Man Lymphocytes # (Manual) Monocytes # (Manual) POC ABG pH ABG pH POC ABG pCO2 POC ABG pO2 ABG pO2 68.9 L ABG HCO3 28.7 H ABG Base Excess 3.4 H ABG Hemoglobin 6.6 L Oxyhemoglobin 94.1 L Sodium Potassium Chloride Carbon Dioxide BUN Creatinine 0.5 L Glucose 165 H POC Glucose Calcium 7.4 L Phosphorus Magnesium Direct Bilirubin AST Alkaline Phosphatase C-Reactive Protein Serum Total Protein Total Protein Albumin Prealbumin Wyefd-6-Biqlejmjs Oihxr-9-Ggcbxnlmp Gamma Globulins PEP Interpretation Triglycerides Urine pH Urine Creatinine Urine Total Protein Vancomycin Trough Digoxin Crossmatch 10/23/19 10/23/19 10/23/19 10:44 11:46 11:50 WBC RBC Hgb Hct MCV MCH MCHC RDW Plt Count Lymph % (Auto) [place] % (Auto) Lymph # Casey # Seg Neutrophils % Seg Neuts % (Manual) Lymphocytes % (Manual) Seg Neutrophils # Seg Neutrophils # Man Lymphocytes # (Manual) Monocytes # (Manual) POC ABG pH ABG pH POC ABG pCO2 POC ABG pO2 ABG pO2 ABG HCO3 ABG Base Excess ABG Hemoglobin Oxyhemoglobin Sodium Potassium Chloride Carbon Dioxide BUN Creatinine Glucose POC Glucose 138 H Calcium Phosphorus Magnesium Direct Bilirubin 0.7 H AST Alkaline Phosphatase C-Reactive Protein Serum Total Protein Total Protein 4.5 L Albumin 1.2 L Prealbumin Makke-6-Jkymmawzy Zxawe-4-Wclzqyfav Gamma Globulins PEP Interpretation Triglycerides Urine pH Urine Creatinine Urine Total Protein Vancomycin Trough Digoxin Crossmatch See Detail 10/23/19 10/24/19 10/24/19 17:53 00:07 05:05 WBC RBC Hgb Hct MCV MCH MCHC RDW Plt Count Lymph % (Auto) [place] % (Auto) Lymph # Casey # Seg Neutrophils % Seg Neuts % (Manual) Lymphocytes % (Manual) Seg Neutrophils # Seg Neutrophils # Man Lymphocytes # (Manual) Monocytes # (Manual) POC ABG pH ABG pH POC ABG pCO2 POC ABG pO2 ABG pO2 ABG HCO3 ABG Base Excess ABG Hemoglobin Oxyhemoglobin Sodium Potassium 3.5 L Chloride Carbon Dioxide BUN Creatinine 0.5 L Glucose 116 H POC Glucose 137 H 110 H Calcium 8.0 L Phosphorus Magnesium Direct Bilirubin AST Alkaline Phosphatase C-Reactive Protein Serum Total Protein Total Protein Albumin Prealbumin Eqkqq-8-Tjdhmwtbe Owivz-1-Syzedxbnu Gamma Globulins PEP Interpretation Triglycerides Urine pH Urine Creatinine Urine Total Protein Vancomycin Trough Digoxin Crossmatch 10/24/19 10/24/19 10/24/19 05:05 11:56 13:00 WBC 13.0 H RBC 2.73 L Hgb 8.0 L Hct 24.2 L MCV MCH MCHC RDW 17.9 H Plt Count Lymph % (Auto) 7.0 L Casey % (Auto) 9.5 H Lymph # 0.9 L Casey # 1.2 H Seg Neutrophils % 82.7 H Seg Neuts % (Manual) Lymphocytes % (Manual) Seg Neutrophils # 10.7 H Seg Neutrophils # Man Lymphocytes # (Manual) Monocytes # (Manual) POC ABG pH ABG pH POC ABG pCO2 POC ABG pO2 ABG pO2 ABG HCO3 ABG Base Excess ABG Hemoglobin Oxyhemoglobin Sodium Potassium Chloride Carbon Dioxide BUN Creatinine Glucose POC Glucose 159 H Calcium Phosphorus Magnesium Direct Bilirubin AST Alkaline Phosphatase C-Reactive Protein Serum Total Protein Total Protein Albumin Prealbumin Rpglb-2-Pgtwjgefm Fdowx-0-Tousngtld Gamma Globulins PEP Interpretation Triglycerides 216 H Urine pH Urine Creatinine Urine Total Protein Vancomycin Trough Digoxin Crossmatch 10/24/19 10/24/19 10/25/19 17:42 23:45 04:19 WBC RBC Hgb Hct MCV MCH MCHC RDW Plt Count Lymph % (Auto) [place] % (Auto) Lymph # Casey # Seg Neutrophils % Seg Neuts % (Manual) Lymphocytes % (Manual) Seg Neutrophils # Seg Neutrophils # Man Lymphocytes # (Manual) Monocytes # (Manual) POC ABG pH ABG pH POC ABG pCO2 POC ABG pO2 ABG pO2 ABG HCO3 ABG Base Excess ABG Hemoglobin Oxyhemoglobin Sodium 147 H Potassium Chloride Carbon Dioxide 33 H BUN Creatinine 0.5 L Glucose 111 H POC Glucose 120 H 116 H Calcium Phosphorus Magnesium Direct Bilirubin AST Alkaline Phosphatase C-Reactive Protein Serum Total Protein Total Protein 5.7 L D Albumin 2.5 L Prealbumin Zvrqr-6-Lkuskyqjn Bseec-1-Kpytmtyux Gamma Globulins PEP Interpretation Triglycerides 230 H Urine pH Urine Creatinine Urine Total Protein Vancomycin Trough Digoxin Crossmatch 10/25/19 10/25/19 10/25/19 04:19 05:31 12:20 WBC RBC 2.69 L Hgb 8.1 L Hct 23.9 L MCV MCH MCHC RDW 17.3 H Plt Count Lymph % (Auto) Casey % (Auto) Lymph # Casey # Seg Neutrophils % Seg Neuts % (Manual) Lymphocytes % (Manual) Seg Neutrophils # Seg Neutrophils # Man Lymphocytes # (Manual) Monocytes # (Manual) POC ABG pH ABG pH POC ABG pCO2 POC ABG pO2 ABG pO2 ABG HCO3 ABG Base Excess ABG Hemoglobin Oxyhemoglobin Sodium Potassium Chloride Carbon Dioxide BUN Creatinine Glucose POC Glucose 126 H 114 H Calcium Phosphorus Magnesium Direct Bilirubin AST Alkaline Phosphatase C-Reactive Protein Serum Total Protein Total Protein Albumin Prealbumin Hfjkz-9-Nelbtexyj Unrme-2-Fggissyvp Gamma Globulins PEP Interpretation Triglycerides Urine pH Urine Creatinine Urine Total Protein Vancomycin Trough Digoxin Crossmatch 10/25/19 10/25/19 10/26/19 18:30 23:09 06:15 WBC RBC Hgb Hct MCV MCH MCHC RDW Plt Count Lymph % (Auto) [place] % (Auto) Lymph # Casey # Seg Neutrophils % Seg Neuts % (Manual) Lymphocytes % (Manual) Seg Neutrophils # Seg Neutrophils # Man Lymphocytes # (Manual) Monocytes # (Manual) POC ABG pH ABG pH POC ABG pCO2 POC ABG pO2 ABG pO2 ABG HCO3 ABG Base Excess ABG Hemoglobin Oxyhemoglobin Sodium Potassium 3.5 L Chloride Carbon Dioxide BUN Creatinine 0.5 L Glucose 112 H POC Glucose 121 H 107 H Calcium 8.3 L Phosphorus Magnesium Direct Bilirubin AST Alkaline Phosphatase 148 H C-Reactive Protein Serum Total Protein Total Protein 5.9 L Albumin 2.4 L Prealbumin Yrpjx-9-Yijftcohh Pjfcc-2-Vrjagwupm Gamma Globulins PEP Interpretation Triglycerides Urine pH Urine Creatinine Urine Total Protein Vancomycin Trough Digoxin Crossmatch 10/26/19 10/26/19 10/26/19 06:15 12:21 17:35 WBC RBC Hgb Hct MCV MCH MCHC RDW Plt Count Lymph % (Auto) [place] % (Auto) Lymph # Casey # Seg Neutrophils % Seg Neuts % (Manual) Lymphocytes % (Manual) Seg Neutrophils # Seg Neutrophils # Man Lymphocytes # (Manual) Monocytes # (Manual) POC ABG pH ABG pH POC ABG pCO2 POC ABG pO2 ABG pO2 ABG HCO3 ABG Base Excess ABG Hemoglobin Oxyhemoglobin Sodium Potassium Chloride Carbon Dioxide BUN Creatinine Glucose POC Glucose 134 H 141 H Calcium Phosphorus Magnesium Direct Bilirubin AST Alkaline Phosphatase C-Reactive Protein Serum Total Protein Total Protein Albumin Prealbumin Kvawt-5-Fbollsmbx Aifaj-7-Vdpidkfhr Gamma Globulins PEP Interpretation Triglycerides 185 H Urine pH Urine Creatinine Urine Total Protein Vancomycin Trough Digoxin Crossmatch 10/26/19 10/27/19 10/27/19 Unknown 04:30 11:33 WBC RBC Hgb Hct MCV MCH MCHC RDW Plt Count Lymph % (Auto) [place] % (Auto) Lymph # Casey # Seg Neutrophils % Seg Neuts % (Manual) Lymphocytes % (Manual) Seg Neutrophils # Seg Neutrophils # Man Lymphocytes # (Manual) Monocytes # (Manual) POC ABG pH ABG pH POC ABG pCO2 POC ABG pO2 ABG pO2 ABG HCO3 ABG Base Excess ABG Hemoglobin Oxyhemoglobin Sodium Potassium 3.2 L Chloride Carbon Dioxide BUN 23 H Creatinine 0.6 L Glucose 130 H POC Glucose 131 H Calcium 7.9 L Phosphorus Magnesium Direct Bilirubin AST Alkaline Phosphatase C-Reactive Protein Serum Total Protein Total Protein Albumin Prealbumin Ckxsu-5-Mccaqulxn Gycay-2-Vpdlpadwa Gamma Globulins PEP Interpretation Triglycerides Urine pH 9.0 H Urine Creatinine Urine Total Protein Vancomycin Trough Digoxin Crossmatch 10/27/19 10/28/19 10/28/19 17:45 05:25 05:49 WBC RBC 2.85 L Hgb 8.3 L Hct 26.8 L MCV MCH MCHC 31 L RDW 17.4 H Plt Count Lymph % (Auto) 8.9 L Casey % (Auto) 14.3 H Lymph # 0.8 L Casey # 1.3 H Seg Neutrophils % 76.5 H Seg Neuts % (Manual) Lymphocytes % (Manual) Seg Neutrophils # Seg Neutrophils # Man Lymphocytes # (Manual) Monocytes # (Manual) POC ABG pH ABG pH POC ABG pCO2 POC ABG pO2 ABG pO2 ABG HCO3 ABG Base Excess ABG Hemoglobin Oxyhemoglobin Sodium Potassium Chloride Carbon Dioxide BUN Creatinine Glucose POC Glucose 121 H 120 H Calcium Phosphorus Magnesium Direct Bilirubin AST Alkaline Phosphatase C-Reactive Protein Serum Total Protein Total Protein Albumin Prealbumin Qrtlj-9-Lqxcerhyv Jmspw-3-Vvplbqyqj Gamma Globulins PEP Interpretation Triglycerides Urine pH Urine Creatinine Urine Total Protein Vancomycin Trough Digoxin Crossmatch 10/28/19 10/28/19 10/28/19 07:19 12:07 18:21 WBC RBC Hgb Hct MCV MCH MCHC RDW Plt Count Lymph % (Auto) Casey % (Auto) Lymph # Casey # Seg Neutrophils % Seg Neuts % (Manual) Lymphocytes % (Manual) Seg Neutrophils # Seg Neutrophils # Man Lymphocytes # (Manual) Monocytes # (Manual) POC ABG pH ABG pH POC ABG pCO2 POC ABG pO2 ABG pO2 ABG HCO3 ABG Base Excess ABG Hemoglobin Oxyhemoglobin Sodium Potassium Chloride Carbon Dioxide BUN 23 H Creatinine 0.5 L Glucose 129 H POC Glucose 127 H 130 H Calcium 8.0 L Phosphorus Magnesium Direct Bilirubin AST Alkaline Phosphatase C-Reactive Protein Serum Total Protein Total Protein Albumin Prealbumin Kkajs-6-Qemucqxbo Jqimz-0-Cbdhzusyt Gamma Globulins PEP Interpretation Triglycerides Urine pH Urine Creatinine Urine Total Protein Vancomycin Trough Digoxin Crossmatch 10/28/19 10/29/19 10/29/19 23:30 05:30 05:30 WBC 11.2 H RBC 3.36 L Hgb 9.7 L Hct 29.4 L MCV MCH MCHC RDW 16.7 H Plt Count Lymph % (Auto) Casey % (Auto) 16.0 H Lymph # Casey # 1.8 H Seg Neutrophils % 70.2 H Seg Neuts % (Manual) Lymphocytes % (Manual) Seg Neutrophils # 7.9 H Seg Neutrophils # Man Lymphocytes # (Manual) Monocytes # (Manual) POC ABG pH ABG pH POC ABG pCO2 POC ABG pO2 ABG pO2 ABG HCO3 ABG Base Excess ABG Hemoglobin Oxyhemoglobin Sodium Potassium Chloride Carbon Dioxide BUN 23 H Creatinine 0.5 L Glucose POC Glucose 130 H Calcium 8.3 L Phosphorus Magnesium Direct Bilirubin AST Alkaline Phosphatase C-Reactive Protein Serum Total Protein Total Protein Albumin Prealbumin Zirij-4-Svfdwwgrc Tapsq-1-Sqrttkyau Gamma Globulins PEP Interpretation Triglycerides Urine pH Urine Creatinine Urine Total Protein Vancomycin Trough Digoxin Crossmatch 1210/29/19 10/29/19 05:52 13:10 18:02 WBC RBC Hgb Hct MCV MCH MCHC RDW Plt Count Lymph % (Auto) [place] % (Auto) Lymph # Casey # Seg Neutrophils % Seg Neuts % (Manual) Lymphocytes % (Manual) Seg Neutrophils # Seg Neutrophils # Man Lymphocytes # (Manual) Monocytes # (Manual) POC ABG pH ABG pH POC ABG pCO2 POC ABG pO2 ABG pO2 ABG HCO3 ABG Base Excess ABG Hemoglobin Oxyhemoglobin Sodium Potassium Chloride Carbon Dioxide BUN Creatinine Glucose POC Glucose 111 H 140 H 140 H Calcium Phosphorus Magnesium Direct Bilirubin AST Alkaline Phosphatase C-Reactive Protein Serum Total Protein Total Protein Albumin Prealbumin Jrois-4-Gfpnbgczr Dvwha-3-Ijhhibzop Gamma Globulins PEP Interpretation Triglycerides Urine pH Urine Creatinine Urine Total Protein Vancomycin Trough Digoxin Crossmatch 10/29/19 10/30/19 10/30/19 23:58 01:05 05:15 WBC RBC Hgb Hct MCV MCH MCHC RDW Plt Count Lymph % (Auto) Casey % (Auto) Lymph # Casey # Seg Neutrophils % Seg Neuts % (Manual) Lymphocytes % (Manual) Seg Neutrophils # Seg Neutrophils # Man Lymphocytes # (Manual) Monocytes # (Manual) POC ABG pH ABG pH POC ABG pCO2 62.0 H POC ABG pO2 168 H ABG pO2 ABG HCO3 ABG Base Excess ABG Hemoglobin Oxyhemoglobin Sodium 147 H Potassium Chloride 107.8 H Carbon Dioxide BUN 26 H Creatinine 0.5 L Glucose 139 H POC Glucose 161 H Calcium Phosphorus Magnesium 2.40 H Direct Bilirubin AST Alkaline Phosphatase C-Reactive Protein Serum Total Protein Total Protein Albumin Prealbumin Bfkhd-3-Gkutqqlri Pjfut-1-Owjjopfxr Gamma Globulins PEP Interpretation Triglycerides Urine pH Urine Creatinine Urine Total Protein Vancomycin Trough Digoxin Crossmatch 10/30/19 10/30/19 10/30/19 05:15 06:32 09:44 WBC 13.8 H RBC 3.59 L Hgb 10.1 L Hct 32.4 L MCV MCH MCHC 31 L RDW 17.4 H Plt Count Lymph % (Auto) 11.2 L Casey % (Auto) 13.6 H Lymph # Casey # 1.9 H Seg Neutrophils % 75.1 H Seg Neuts % (Manual) Lymphocytes % (Manual) Seg Neutrophils # 10.4 H Seg Neutrophils # Man Lymphocytes # (Manual) Monocytes # (Manual) POC ABG pH ABG pH POC ABG pCO2 51.7 H POC ABG pO2 111 H ABG pO2 ABG HCO3 ABG Base Excess ABG Hemoglobin Oxyhemoglobin Sodium Potassium Chloride Carbon Dioxide BUN Creatinine Glucose POC Glucose 141 H Calcium Phosphorus Magnesium Direct Bilirubin AST Alkaline Phosphatase C-Reactive Protein Serum Total Protein Total Protein Albumin Prealbumin Oreew-4-Wudcpbljl Vuxuh-1-Fadkyeran Gamma Globulins PEP Interpretation Triglycerides Urine pH Urine Creatinine Urine Total Protein Vancomycin Trough Digoxin Crossmatch 10/30/19 10/31/19 10/31/19 18:10 04:18 04:18 WBC 11.7 H RBC 3.11 L Hgb 9.0 L Hct 27.9 L MCV MCH MCHC RDW 17.1 H Plt Count Lymph % (Auto) Casey % (Auto) Lymph # Casey # Seg Neutrophils % Seg Neuts % (Manual) Lymphocytes % (Manual) Seg Neutrophils # Seg Neutrophils # Man Lymphocytes # (Manual) Monocytes # (Manual) POC ABG pH ABG pH POC ABG pCO2 POC ABG pO2 ABG pO2 ABG HCO3 ABG Base Excess ABG Hemoglobin Oxyhemoglobin Sodium 148 H Potassium Chloride 108.7 H Carbon Dioxide BUN 37 H Creatinine 0.7 L Glucose 102 H POC Glucose 131 H Calcium Phosphorus Magnesium Direct Bilirubin AST Alkaline Phosphatase C-Reactive Protein Serum Total Protein Total Protein Albumin Prealbumin Yelbj-9-Geddlkkuf Hahqj-2-Cmeuicqvn Gamma Globulins PEP Interpretation Triglycerides Urine pH Urine Creatinine Urine Total Protein Vancomycin Trough Digoxin Crossmatch 10/31/19 10/31/19 10/31/19 11:32 12:55 18:10 WBC RBC Hgb Hct MCV MCH MCHC RDW Plt Count Lymph % (Auto) Casey % (Auto) Lymph # Casey # Seg Neutrophils % Seg Neuts % (Manual) Lymphocytes % (Manual) Seg Neutrophils # Seg Neutrophils # Man Lymphocytes # (Manual) Monocytes # (Manual) POC ABG pH ABG pH POC ABG pCO2 57.9 H POC ABG pO2 135 H ABG pO2 ABG HCO3 ABG Base Excess ABG Hemoglobin Oxyhemoglobin Sodium Potassium Chloride Carbon Dioxide BUN Creatinine Glucose POC Glucose 120 H Calcium Phosphorus Magnesium Direct Bilirubin AST Alkaline Phosphatase C-Reactive Protein Serum Total Protein Total Protein Albumin Prealbumin Qprui-2-Ktbvdoklm Yxdod-9-Vvmrulfpo Gamma Globulins PEP Interpretation Triglycerides Urine pH Urine Creatinine Urine Total Protein Vancomycin Trough 41.7 H Digoxin Crossmatch 10/31/19 11/01/19 11/01/19 23:08 05:30 05:30 WBC 14.6 H RBC 3.13 L Hgb 8.9 L Hct 27.7 L MCV MCH MCHC RDW 17.0 H Plt Count Lymph % (Auto) Casey % (Auto) Lymph # Casey # Seg Neutrophils % Seg Neuts % (Manual) Lymphocytes % (Manual) Seg Neutrophils # Seg Neutrophils # Man Lymphocytes # (Manual) Monocytes # (Manual) POC ABG pH ABG pH POC ABG pCO2 POC ABG pO2 ABG pO2 ABG HCO3 ABG Base Excess ABG Hemoglobin Oxyhemoglobin Sodium 149 H Potassium Chloride 109.0 H Carbon Dioxide BUN 26 H Creatinine 0.7 L Glucose 129 H POC Glucose 109 H Calcium Phosphorus Magnesium Direct Bilirubin AST Alkaline Phosphatase C-Reactive Protein Serum Total Protein Total Protein Albumin Prealbumin Niwpr-8-Exddncsct Llnhl-8-Hniwphuec Gamma Globulins PEP Interpretation Triglycerides Urine pH Urine Creatinine Urine Total Protein Vancomycin Trough Digoxin Crossmatch 11/01/19 11/01/19 11/01/19 06:09 06:10 11:52 WBC RBC Hgb Hct MCV MCH MCHC RDW Plt Count Lymph % (Auto) Casey % (Auto) Lymph # Casey # Seg Neutrophils % Seg Neuts % (Manual) Lymphocytes % (Manual) Seg Neutrophils # Seg Neutrophils # Man Lymphocytes # (Manual) Monocytes # (Manual) POC ABG pH ABG pH POC ABG pCO2 51.3 H POC ABG pO2 71 L ABG pO2 ABG HCO3 ABG Base Excess ABG Hemoglobin Oxyhemoglobin Sodium Potassium Chloride Carbon Dioxide BUN Creatinine Glucose POC Glucose 113 H 106 H Calcium Phosphorus Magnesium Direct Bilirubin AST Alkaline Phosphatase C-Reactive Protein Serum Total Protein Total Protein Albumin Prealbumin Xwdlx-6-Hyuyzggff Txwsr-9-Ovqdrgdrw Gamma Globulins PEP Interpretation Triglycerides Urine pH Urine Creatinine Urine Total Protein Vancomycin Trough Digoxin Crossmatch 11/01/19 11/02/19 11/02/19 18:18 03:40 03:40 WBC RBC 2.36 L Hgb 7.2 L Hct 20.8 L D MCV MCH MCHC 35 H RDW 16.8 H Plt Count Lymph % (Auto) Casey % (Auto) Lymph # Casey # Seg Neutrophils % Seg Neuts % (Manual) Lymphocytes % (Manual) Seg Neutrophils # Seg Neutrophils # Man Lymphocytes # (Manual) Monocytes # (Manual) POC ABG pH ABG pH POC ABG pCO2 POC ABG pO2 ABG pO2 ABG HCO3 ABG Base Excess ABG Hemoglobin Oxyhemoglobin Sodium 157 H D Potassium 3.0 L D Chloride 117.2 H Carbon Dioxide BUN 23 H Creatinine 0.6 L Glucose 101 H POC Glucose 120 H Calcium 6.4 L D Phosphorus Magnesium Direct Bilirubin AST Alkaline Phosphatase C-Reactive Protein Serum Total Protein Total Protein Albumin Prealbumin Htimf-8-Rntvqcded Apzza-3-Yxvbelkpa Gamma Globulins PEP Interpretation Triglycerides Urine pH Urine Creatinine Urine Total Protein Vancomycin Trough Digoxin Crossmatch 11/02/19 11/02/19 11/02/19 04:48 05:30 12:43 WBC RBC Hgb Hct MCV MCH MCHC RDW Plt Count Lymph % (Auto) [place] % (Auto) Lymph # Casey # Seg Neutrophils % Seg Neuts % (Manual) Lymphocytes % (Manual) Seg Neutrophils # Seg Neutrophils # Man Lymphocytes # (Manual) Monocytes # (Manual) POC ABG pH ABG pH POC ABG pCO2 50.1 H POC ABG pO2 74 L ABG pO2 ABG HCO3 ABG Base Excess ABG Hemoglobin Oxyhemoglobin Sodium 149 H D Potassium Chloride 110.0 H Carbon Dioxide BUN 23 H Creatinine 0.6 L Glucose POC Glucose 109 H Calcium 8.1 L D Phosphorus Magnesium 2.40 H Direct Bilirubin AST Alkaline Phosphatase C-Reactive Protein Serum Total Protein Total Protein Albumin Prealbumin Yqgzg-1-Lgcsicrcu Gllby-5-Yklxpdviu Gamma Globulins PEP Interpretation Triglycerides Urine pH Urine Creatinine Urine Total Protein Vancomycin Trough Digoxin Crossmatch 11/03/19 11/03/19 11/03/19 03:42 03:42 04:13 WBC RBC 2.93 L Hgb 8.5 L Hct 25.8 L MCV MCH MCHC RDW 16.9 H Plt Count Lymph % (Auto) Casey % (Auto) Lymph # Casey # Seg Neutrophils % Seg Neuts % (Manual) Lymphocytes % (Manual) Seg Neutrophils # Seg Neutrophils # Man Lymphocytes # (Manual) Monocytes # (Manual) POC ABG pH 7.540 H ABG pH POC ABG pCO2 POC ABG pO2 51 L ABG pO2 ABG HCO3 ABG Base Excess ABG Hemoglobin Oxyhemoglobin Sodium 147 H Potassium 3.5 L D Chloride 108.6 H Carbon Dioxide BUN Creatinine 0.6 L Glucose 109 H POC Glucose Calcium 8.3 L Phosphorus Magnesium Direct Bilirubin AST Alkaline Phosphatase C-Reactive Protein Serum Total Protein Total Protein Albumin Prealbumin Lpeys-3-Fgxoiaahf Ayivy-8-Buuopgxiy Gamma Globulins PEP Interpretation Triglycerides Urine pH Urine Creatinine Urine Total Protein Vancomycin Trough Digoxin Crossmatch 11/03/19 11/03/19 11/03/19 04:28 12:04 23:02 WBC RBC Hgb Hct MCV MCH MCHC RDW Plt Count Lymph % (Auto) [place] % (Auto) Lymph # Casey # Seg Neutrophils % Seg Neuts % (Manual) Lymphocytes % (Manual) Seg Neutrophils # Seg Neutrophils # Man Lymphocytes # (Manual) Monocytes # (Manual) POC ABG pH ABG pH POC ABG pCO2 45.4 H POC ABG pO2 ABG pO2 ABG HCO3 ABG Base Excess ABG Hemoglobin Oxyhemoglobin Sodium Potassium Chloride Carbon Dioxide BUN Creatinine Glucose POC Glucose 109 H 111 H Calcium Phosphorus Magnesium Direct Bilirubin AST Alkaline Phosphatase C-Reactive Protein Serum Total Protein Total Protein Albumin Prealbumin Kxnjo-6-[place] Flhfl-7-[place] Gamma Globulins PEP Interpretation Triglycerides Urine pH Urine Creatinine Urine Total Protein Vancomycin Trough Digoxin Crossmatch 11/04/19 11/04/19 11/04/19 05:00 05:00 05:19 WBC RBC 2.96 L Hgb 8.6 L Hct 25.5 L MCV MCH MCHC RDW 16.7 H Plt Count Lymph % (Auto) Casey % (Auto) Lymph # Casey # Seg Neutrophils % Seg Neuts % (Manual) Lymphocytes % (Manual) Seg Neutrophils # Seg Neutrophils # Man Lymphocytes # (Manual) Monocytes # (Manual) POC ABG pH ABG pH POC ABG pCO2 POC ABG pO2 ABG pO2 ABG HCO3 ABG Base Excess ABG Hemoglobin Oxyhemoglobin Sodium Potassium 3.5 L Chloride Carbon Dioxide BUN Creatinine 0.5 L Glucose 111 H POC Glucose 106 H Calcium 8.1 L Phosphorus Magnesium Direct Bilirubin AST Alkaline Phosphatase C-Reactive Protein Serum Total Protein Total Protein Albumin Prealbumin Mnypq-7-Wnvokbbag Uqkxd-5-Xgbxkhyox Gamma Globulins PEP Interpretation Triglycerides Urine pH Urine Creatinine Urine Total Protein Vancomycin Trough Digoxin Crossmatch 11/04/19 11/05/19 11/05/19 12:40 00:28 04:19 WBC 12.4 H RBC 2.98 L Hgb 8.5 L Hct 25.5 L MCV MCH MCHC RDW 16.6 H Plt Count Lymph % (Auto) Casey % (Auto) Lymph # Casey # Seg Neutrophils % Seg Neuts % (Manual) Lymphocytes % (Manual) Seg Neutrophils # Seg Neutrophils # Man Lymphocytes # (Manual) Monocytes # (Manual) POC ABG pH ABG pH POC ABG pCO2 POC ABG pO2 ABG pO2 ABG HCO3 ABG Base Excess ABG Hemoglobin Oxyhemoglobin Sodium Potassium Chloride Carbon Dioxide BUN Creatinine Glucose POC Glucose 109 H 132 H Calcium Phosphorus Magnesium Direct Bilirubin AST Alkaline Phosphatase C-Reactive Protein Serum Total Protein Total Protein Albumin Prealbumin Ebevu-5-Imdmqcrnh Osqle-2-Gqlodcyfo Gamma Globulins PEP Interpretation Triglycerides Urine pH Urine Creatinine Urine Total Protein Vancomycin Trough Digoxin Crossmatch 11/05/19 11/05/19 11/05/19 04:19 05:40 13:14 WBC RBC Hgb Hct MCV MCH MCHC RDW Plt Count Lymph % (Auto) [place] % (Auto) Lymph # [place] # Seg Neutrophils % Seg Neuts % (Manual) Lymphocytes % (Manual) Seg Neutrophils # Seg Neutrophils # Man Lymphocytes # (Manual) Monocytes # (Manual) POC ABG pH ABG pH POC ABG pCO2 POC ABG pO2 ABG pO2 ABG HCO3 ABG Base Excess ABG Hemoglobin Oxyhemoglobin Sodium Potassium 3.4 L Chloride Carbon Dioxide BUN Creatinine 0.4 L Glucose 106 H POC Glucose 136 H 145 H Calcium 8.2 L Phosphorus Magnesium Direct Bilirubin AST Alkaline Phosphatase C-Reactive Protein Serum Total Protein Total Protein Albumin Prealbumin Ibbbn-9-Uczmulqgp Egxkv-6-Aduhghrdi Gamma Globulins PEP Interpretation Triglycerides Urine pH Urine Creatinine Urine Total Protein Vancomycin Trough Digoxin Crossmatch 11/05/19 11/05/19 11/06/19 18:29 23:42 05:00 WBC 12.2 H RBC 2.89 L Hgb 8.2 L Hct 24.9 L MCV MCH MCHC RDW 16.4 H Plt Count Lymph % (Auto) [place] % (Auto) Lymph # Casey # Seg Neutrophils % Seg Neuts % (Manual) Lymphocytes % (Manual) Seg Neutrophils # Seg Neutrophils # Man Lymphocytes # (Manual) Monocytes # (Manual) POC ABG pH ABG pH POC ABG pCO2 POC ABG pO2 ABG pO2 ABG HCO3 ABG Base Excess ABG Hemoglobin Oxyhemoglobin Sodium Potassium Chloride Carbon Dioxide BUN Creatinine Glucose POC Glucose 138 H 117 H Calcium Phosphorus Magnesium Direct Bilirubin AST Alkaline Phosphatase C-Reactive Protein Serum Total Protein Total Protein Albumin Prealbumin Oohea-8-Uqqbfyygh Untvq-0-Txzhcbqsa Gamma Globulins PEP Interpretation Triglycerides Urine pH Urine Creatinine Urine Total Protein Vancomycin Trough Digoxin Crossmatch 11/06/19 11/06/19 11/06/19 05:00 05:22 17:39 WBC RBC Hgb Hct MCV MCH MCHC RDW Plt Count Lymph % (Auto) [place] % (Auto) Lymph # Casey # Seg Neutrophils % Seg Neuts % (Manual) Lymphocytes % (Manual) Seg Neutrophils # Seg Neutrophils # Man Lymphocytes # (Manual) Monocytes # (Manual) POC ABG pH ABG pH POC ABG pCO2 POC ABG pO2 ABG pO2 ABG HCO3 ABG Base Excess ABG Hemoglobin Oxyhemoglobin Sodium Potassium Chloride Carbon Dioxide BUN Creatinine 0.4 L Glucose 114 H POC Glucose 121 H 110 H Calcium 8.2 L Phosphorus Magnesium Direct Bilirubin AST Alkaline Phosphatase C-Reactive Protein Serum Total Protein Total Protein Albumin Prealbumin Ddkrc-8-Mgvbedwih Dgxbr-8-Miyjsagry Gamma Globulins PEP Interpretation Triglycerides Urine pH Urine Creatinine Urine Total Protein Vancomycin Trough Digoxin Crossmatch 11/06/19 11/07/19 11/07/19 23:29 04:06 04:06 WBC 13.0 H RBC 2.80 L Hgb 7.9 L Hct 24.0 L MCV MCH MCHC RDW 16.5 H Plt Count Lymph % (Auto) 7.0 L [place] % (Auto) Lymph # 0.9 L Casey # Seg Neutrophils % 86.3 H Seg Neuts % (Manual) Lymphocytes % (Manual) Seg Neutrophils # 11.2 H Seg Neutrophils # Man Lymphocytes # (Manual) Monocytes # (Manual) POC ABG pH ABG pH POC ABG pCO2 POC ABG pO2 ABG pO2 ABG HCO3 ABG Base Excess ABG Hemoglobin Oxyhemoglobin Sodium Potassium Chloride Carbon Dioxide BUN Creatinine 0.4 L Glucose 110 H POC Glucose 113 H Calcium 8.2 L Phosphorus Magnesium Direct Bilirubin AST Alkaline Phosphatase C-Reactive Protein Serum Total Protein Total Protein Albumin Prealbumin Nyaya-0-Sdjrskqpu Ipocb-9-Tfjlekdoo Gamma Globulins PEP Interpretation Triglycerides Urine pH Urine Creatinine Urine Total Protein Vancomycin Trough Digoxin Crossmatch 11/07/19 11/07/19 11/07/19 05:43 12:47 18:19 WBC RBC Hgb Hct MCV MCH MCHC RDW Plt Count Lymph % (Auto) [place] % (Auto) Lymph # Casey # Seg Neutrophils % Seg Neuts % (Manual) Lymphocytes % (Manual) Seg Neutrophils # Seg Neutrophils # Man Lymphocytes # (Manual) Monocytes # (Manual) POC ABG pH ABG pH POC ABG pCO2 POC ABG pO2 ABG pO2 ABG HCO3 ABG Base Excess ABG Hemoglobin Oxyhemoglobin Sodium Potassium Chloride Carbon Dioxide BUN Creatinine Glucose POC Glucose 114 H 120 H 112 H Calcium Phosphorus Magnesium Direct Bilirubin AST Alkaline Phosphatase C-Reactive Protein Serum Total Protein Total Protein Albumin Prealbumin Bxlyx-1-Mftttkijc Lirso-1-Hftybhejz Gamma Globulins PEP Interpretation Triglycerides Urine pH Urine Creatinine Urine Total Protein Vancomycin Trough Digoxin Crossmatch 11/08/19 11/08/19 11/08/19 03:45 03:45 11:43 WBC 12.7 H RBC 2.82 L Hgb 7.8 L Hct 24.4 L MCV MCH MCHC RDW 16.5 H Plt Count Lymph % (Auto) 9.4 L Casey % (Auto) Lymph # Casey # 0.9 H Seg Neutrophils % 83.0 H Seg Neuts % (Manual) Lymphocytes % (Manual) Seg Neutrophils # 10.6 H Seg Neutrophils # Man Lymphocytes # (Manual) Monocytes # (Manual) POC ABG pH ABG pH POC ABG pCO2 POC ABG pO2 ABG pO2 ABG HCO3 ABG Base Excess ABG Hemoglobin Oxyhemoglobin Sodium Potassium Chloride Carbon Dioxide BUN Creatinine 0.4 L Glucose 107 H POC Glucose 118 H Calcium Phosphorus Magnesium Direct Bilirubin AST Alkaline Phosphatase C-Reactive Protein Serum Total Protein Total Protein Albumin Prealbumin Yoglg-0-Jeubngtpj Bvsms-6-Ivdsnyzsj Gamma Globulins PEP Interpretation Triglycerides Urine pH Urine Creatinine Urine Total Protein Vancomycin Trough Digoxin Crossmatch 11/08/19 11/09/19 11/09/19 23:45 12:41 12:56 WBC RBC Hgb Hct MCV MCH MCHC RDW Plt Count Lymph % (Auto) [place] % (Auto) Lymph # Casey # Seg Neutrophils % Seg Neuts % (Manual) Lymphocytes % (Manual) Seg Neutrophils # Seg Neutrophils # Man Lymphocytes # (Manual) Monocytes # (Manual) POC ABG pH ABG pH POC ABG pCO2 POC ABG pO2 ABG pO2 ABG HCO3 ABG Base Excess ABG Hemoglobin Oxyhemoglobin Sodium Potassium Chloride Carbon Dioxide BUN Creatinine Glucose POC Glucose 113 H 107 H 122 H Calcium Phosphorus Magnesium Direct Bilirubin AST Alkaline Phosphatase C-Reactive Protein Serum Total Protein Total Protein Albumin Prealbumin Hahuz-0-Lvcbhytbf Matbn-2-Grefmlgge Gamma Globulins PEP Interpretation Triglycerides Urine pH Urine Creatinine Urine Total Protein Vancomycin Trough Digoxin Crossmatch 11/10/19 11/10/19 11/11/19 05:12 12:20 12:13 WBC RBC Hgb Hct MCV MCH MCHC RDW Plt Count Lymph % (Auto) [place] % (Auto) Lymph # [place] # Seg Neutrophils % Seg Neuts % (Manual) Lymphocytes % (Manual) Seg Neutrophils # Seg Neutrophils # Man Lymphocytes # (Manual) Monocytes # (Manual) POC ABG pH ABG pH POC ABG pCO2 POC ABG pO2 ABG pO2 ABG HCO3 ABG Base Excess ABG Hemoglobin Oxyhemoglobin Sodium Potassium Chloride Carbon Dioxide BUN Creatinine Glucose POC Glucose 127 H 125 H 107 H Calcium Phosphorus Magnesium Direct Bilirubin AST Alkaline Phosphatase C-Reactive Protein Serum Total Protein Total Protein Albumin Prealbumin Ooxxc-4-Zaylgqzfj Lkkld-0-Xcjmjzvin Gamma Globulins PEP Interpretation Triglycerides Urine pH Urine Creatinine Urine Total Protein Vancomycin Trough Digoxin Crossmatch 11/11/19 11/11/19 11/12/19 17:29 22:20 06:00 WBC RBC 2.77 L Hgb 7.8 L Hct 23.4 L MCV MCH MCHC RDW 16.6 H Plt Count Lymph % (Auto) 11.9 L [place] % (Auto) 8.9 H Lymph # Casey # 0.9 H Seg Neutrophils % 78.2 H Seg Neuts % (Manual) Lymphocytes % (Manual) Seg Neutrophils # 8.2 H Seg Neutrophils # Man Lymphocytes # (Manual) Monocytes # (Manual) POC ABG pH ABG pH POC ABG pCO2 POC ABG pO2 ABG pO2 ABG HCO3 ABG Base Excess ABG Hemoglobin Oxyhemoglobin Sodium Potassium Chloride Carbon Dioxide BUN Creatinine Glucose POC Glucose 120 H 109 H Calcium Phosphorus Magnesium Direct Bilirubin AST Alkaline Phosphatase C-Reactive Protein Serum Total Protein Total Protein Albumin Prealbumin Slzwh-8-Vqudovxgl Gvmqd-2-Hnrheodyu Gamma Globulins PEP Interpretation Triglycerides Urine pH Urine Creatinine Urine Total Protein Vancomycin Trough Digoxin Crossmatch 11/12/19 11/12/19 11/12/19 07:52 11:58 23:44 WBC RBC Hgb Hct MCV MCH MCHC RDW Plt Count Lymph % (Auto) [place] % (Auto) Lymph # Casey # Seg Neutrophils % Seg Neuts % (Manual) Lymphocytes % (Manual) Seg Neutrophils # Seg Neutrophils # Man Lymphocytes # (Manual) Monocytes # (Manual) POC ABG pH ABG pH POC ABG pCO2 POC ABG pO2 ABG pO2 ABG HCO3 ABG Base Excess ABG Hemoglobin Oxyhemoglobin Sodium Potassium Chloride Carbon Dioxide BUN Creatinine Glucose POC Glucose 120 H 140 H 116 H Calcium Phosphorus Magnesium Direct Bilirubin AST Alkaline Phosphatase C-Reactive Protein Serum Total Protein Total Protein Albumin Prealbumin Bqbyp-4-Wpgajurds Wrpns-0-Fuunzcuxi Gamma Globulins PEP Interpretation Triglycerides Urine pH Urine Creatinine Urine Total Protein Vancomycin Trough Digoxin Crossmatch 11/13/19 11/13/19 11/13/19 04:33 04:33 13:43 WBC 11.2 H RBC 2.90 L Hgb 8.1 L Hct 24.5 L MCV MCH MCHC RDW 16.5 H Plt Count Lymph % (Auto) 10.1 L [place] % (Auto) 7.6 H Lymph # 1.1 L Casey # 0.9 H Seg Neutrophils % 81.1 H Seg Neuts % (Manual) Lymphocytes % (Manual) Seg Neutrophils # 9.1 H Seg Neutrophils # Man Lymphocytes # (Manual) Monocytes # (Manual) POC ABG pH ABG pH POC ABG pCO2 POC ABG pO2 ABG pO2 ABG HCO3 ABG Base Excess ABG Hemoglobin Oxyhemoglobin Sodium 135 L Potassium Chloride 91.9 L Carbon Dioxide BUN Creatinine 0.6 L Glucose POC Glucose 122 H Calcium Phosphorus Magnesium Direct Bilirubin AST Alkaline Phosphatase C-Reactive Protein Serum Total Protein Total Protein Albumin Prealbumin Xqbgb-8-Bdksqofhn Qzjqh-9-Ptoqjjgbh Gamma Globulins PEP Interpretation Triglycerides Urine pH Urine Creatinine Urine Total Protein Vancomycin Trough Digoxin Crossmatch 11/13/19 11/14/19 11/15/19 17:57 12:35 07:10 WBC 14.8 H RBC 2.89 L Hgb 7.8 L Hct 24.2 L MCV MCH 27 L MCHC RDW 16.9 H Plt Count Lymph % (Auto) [place] % (Auto) Lymph # Casey # Seg Neutrophils % Seg Neuts % (Manual) Lymphocytes % (Manual) Seg Neutrophils # Seg Neutrophils # Man Lymphocytes # (Manual) Monocytes # (Manual) POC ABG pH ABG pH POC ABG pCO2 POC ABG pO2 ABG pO2 ABG HCO3 ABG Base Excess ABG Hemoglobin Oxyhemoglobin Sodium Potassium Chloride Carbon Dioxide BUN Creatinine Glucose POC Glucose 127 H 148 H Calcium Phosphorus Magnesium Direct Bilirubin AST Alkaline Phosphatase C-Reactive Protein Serum Total Protein Total Protein Albumin Prealbumin Nftjb-8-Wgqiczwgk Juhbr-4-Arumgbgrv Gamma Globulins PEP Interpretation Triglycerides Urine pH Urine Creatinine Urine Total Protein Vancomycin Trough Digoxin Crossmatch 11/15/19 11/15/19 11/16/19 07:10 20:16 10:26 WBC 14.4 H RBC 2.79 L Hgb 7.6 L Hct 23.5 L MCV MCH 27 L MCHC RDW 17.0 H Plt Count Lymph % (Auto) [place] % (Auto) Lymph # Casey # Seg Neutrophils % Seg Neuts % (Manual) Lymphocytes % (Manual) Seg Neutrophils # Seg Neutrophils # Man Lymphocytes # (Manual) Monocytes # (Manual) POC ABG pH ABG pH POC ABG pCO2 POC ABG pO2 ABG pO2 ABG HCO3 ABG Base Excess ABG Hemoglobin Oxyhemoglobin Sodium 133 L 136 L Potassium 3.5 L Chloride 93.7 L 97.4 L Carbon Dioxide BUN Creatinine 0.6 L 0.6 L Glucose 130 H POC Glucose Calcium Phosphorus Magnesium Direct Bilirubin AST Alkaline Phosphatase C-Reactive Protein Serum Total Protein Total Protein Albumin Prealbumin Liosc-6-Ijftzvulx Cqhcu-5-Tenhgysqk Gamma Globulins PEP Interpretation Triglycerides Urine pH Urine Creatinine Urine Total Protein Vancomycin Trough Digoxin Crossmatch 11/16/19 11/17/19 11/17/19 13:01 00:40 07:22 WBC 14.0 H RBC 2.71 L Hgb 7.4 L Hct 22.8 L MCV MCH 27 L MCHC RDW 17.2 H Plt Count Lymph % (Auto) [place] % (Auto) Lymph # Casey # Seg Neutrophils % Seg Neuts % (Manual) Lymphocytes % (Manual) Seg Neutrophils # Seg Neutrophils # Man Lymphocytes # (Manual) Monocytes # (Manual) POC ABG pH ABG pH POC ABG pCO2 POC ABG pO2 ABG pO2 ABG HCO3 ABG Base Excess ABG Hemoglobin Oxyhemoglobin Sodium Potassium Chloride Carbon Dioxide BUN Creatinine Glucose POC Glucose 117 H 124 H Calcium Phosphorus Magnesium Direct Bilirubin AST Alkaline Phosphatase C-Reactive Protein Serum Total Protein Total Protein Albumin Prealbumin Zqrnk-5-Xqnqqtkku Dgnmf-3-Cugscjfcm Gamma Globulins PEP Interpretation Triglycerides Urine pH Urine Creatinine Urine Total Protein Vancomycin Trough Digoxin Crossmatch 11/17/19 11/17/19 11/17/19 07:22 12:00 17:57 WBC RBC Hgb Hct MCV MCH MCHC RDW Plt Count Lymph % (Auto) [place] % (Auto) Lymph # [place] # Seg Neutrophils % Seg Neuts % (Manual) Lymphocytes % (Manual) Seg Neutrophils # Seg Neutrophils # Man Lymphocytes # (Manual) Monocytes # (Manual) POC ABG pH ABG pH POC ABG pCO2 POC ABG pO2 ABG pO2 ABG HCO3 ABG Base Excess ABG Hemoglobin Oxyhemoglobin Sodium 136 L Potassium Chloride 96.1 L Carbon Dioxide BUN 7 L Creatinine 0.5 L Glucose POC Glucose 130 H 111 H Calcium Phosphorus Magnesium Direct Bilirubin AST Alkaline Phosphatase C-Reactive Protein Serum Total Protein Total Protein Albumin Prealbumin Gcdex-5-Voaruvxdy Kswmv-8-Lbtalaqjk Gamma Globulins PEP Interpretation Triglycerides Urine pH Urine Creatinine Urine Total Protein Vancomycin Trough Digoxin Crossmatch 11/18/19 11/18/19 11/18/19 06:03 12:12 17:54 WBC RBC Hgb Hct MCV MCH MCHC RDW Plt Count Lymph % (Auto) [place] % (Auto) Lymph # [place] # Seg Neutrophils % Seg Neuts % (Manual) Lymphocytes % (Manual) Seg Neutrophils # Seg Neutrophils # Man Lymphocytes # (Manual) Monocytes # (Manual) POC ABG pH ABG pH POC ABG pCO2 POC ABG pO2 ABG pO2 ABG HCO3 ABG Base Excess ABG Hemoglobin Oxyhemoglobin Sodium Potassium Chloride Carbon Dioxide BUN Creatinine Glucose POC Glucose 113 H 124 H 128 H Calcium Phosphorus Magnesium Direct Bilirubin AST Alkaline Phosphatase C-Reactive Protein Serum Total Protein Total Protein Albumin Prealbumin Tcpgf-0-Zjllroijv Lfjgy-5-Jvnfbdnzv Gamma Globulins PEP Interpretation Triglycerides Urine pH Urine Creatinine Urine Total Protein Vancomycin Trough Digoxin Crossmatch 11/19/19 11/19/19 11/20/19 00:54 08:03 11:31 WBC RBC Hgb Hct MCV MCH MCHC RDW Plt Count Lymph % (Auto) [place] % (Auto) Lymph # [place] # Seg Neutrophils % Seg Neuts % (Manual) Lymphocytes % (Manual) Seg Neutrophils # Seg Neutrophils # Man Lymphocytes # (Manual) Monocytes # (Manual) POC ABG pH ABG pH POC ABG pCO2 POC ABG pO2 ABG pO2 ABG HCO3 ABG Base Excess ABG Hemoglobin Oxyhemoglobin Sodium Potassium Chloride Carbon Dioxide BUN Creatinine Glucose POC Glucose 130 H 122 H 136 H Calcium Phosphorus Magnesium Direct Bilirubin AST Alkaline Phosphatase C-Reactive Protein Serum Total Protein Total Protein Albumin Prealbumin Eixuq-8-Bknazhvmx Zqnsc-7-Hdnnmeitj Gamma Globulins PEP Interpretation Triglycerides Urine pH Urine Creatinine Urine Total Protein Vancomycin Trough Digoxin Crossmatch 11/20/19 11/20/19 11/20/19 17:17 Unknown Unknown WBC 17.8 H RBC 2.70 L Hgb 7.3 L Hct 22.5 L MCV 83 L MCH 27 L MCHC RDW 17.0 H Plt Count Lymph % (Auto) [place] % (Auto) Lymph # Casey # Seg Neutrophils % Seg Neuts % (Manual) Lymphocytes % (Manual) Seg Neutrophils # Seg Neutrophils # Man Lymphocytes # (Manual) Monocytes # (Manual) POC ABG pH ABG pH POC ABG pCO2 POC ABG pO2 ABG pO2 ABG HCO3 ABG Base Excess ABG Hemoglobin Oxyhemoglobin Sodium 132 L Potassium 3.5 L Chloride 95.4 L Carbon Dioxide 21 L BUN Creatinine 0.6 L Glucose 108 H POC Glucose 126 H Calcium Phosphorus Magnesium Direct Bilirubin AST Alkaline Phosphatase C-Reactive Protein Serum Total Protein Total Protein Albumin Prealbumin Nbguy-1-Oghtytalj Zpfld-2-Fgwxxdidj Gamma Globulins PEP Interpretation Triglycerides Urine pH Urine Creatinine Urine Total Protein Vancomycin Trough Digoxin Crossmatch 11/21/19 11/21/19 11/21/19 07:40 07:40 12:29 WBC 15.1 H RBC 2.61 L Hgb 7.0 L Hct 21.5 L MCV 82 L MCH 27 L MCHC RDW 17.0 H Plt Count Lymph % (Auto) 9.0 L [place] % (Auto) 7.7 H Lymph # Casey # 1.2 H Seg Neutrophils % 81.5 H Seg Neuts % (Manual) Lymphocytes % (Manual) Seg Neutrophils # 12.3 H Seg Neutrophils # Man Lymphocytes # (Manual) Monocytes # (Manual) POC ABG pH ABG pH POC ABG pCO2 POC ABG pO2 ABG pO2 ABG HCO3 ABG Base Excess ABG Hemoglobin Oxyhemoglobin Sodium Potassium Chloride Carbon Dioxide BUN Creatinine 0.5 L Glucose POC Glucose 118 H Calcium Phosphorus Magnesium Direct Bilirubin AST Alkaline Phosphatase C-Reactive Protein Serum Total Protein Total Protein Albumin Prealbumin Iclou-2-Skkxwrzhj Akhor-5-Fwckfxrcc Gamma Globulins PEP Interpretation Triglycerides Urine pH Urine Creatinine Urine Total Protein Vancomycin Trough Digoxin Crossmatch 11/21/19 11/22/19 11/23/19 13:32 08:13 11:48 WBC 13.7 H RBC 2.99 L Hgb 8.2 L Hct 24.7 L MCV 83 L MCH 27 L MCHC RDW 16.5 H Plt Count Lymph % (Auto) 7.8 L [place] % (Auto) 7.5 H Lymph # 1.1 L Casey # 1.0 H Seg Neutrophils % 83.3 H Seg Neuts % (Manual) Lymphocytes % (Manual) Seg Neutrophils # 11.4 H Seg Neutrophils # Man Lymphocytes # (Manual) Monocytes # (Manual) POC ABG pH ABG pH POC ABG pCO2 POC ABG pO2 ABG pO2 ABG HCO3 ABG Base Excess ABG Hemoglobin Oxyhemoglobin Sodium Potassium Chloride Carbon Dioxide BUN Creatinine Glucose POC Glucose 159 H Calcium Phosphorus Magnesium Direct Bilirubin AST Alkaline Phosphatase C-Reactive Protein Serum Total Protein Total Protein Albumin Prealbumin Bzkej-8-Xmzqdbdei Rhecb-2-Kqtdfxaww Gamma Globulins PEP Interpretation Triglycerides Urine pH Urine Creatinine Urine Total Protein Vancomycin Trough Digoxin Crossmatch See Detail 11/23/19 11/24/19 11/24/19 16:41 17:19 17:55 WBC 12.5 H RBC 2.94 L Hgb 8.0 L Hct 24.0 L MCV 82 L MCH 27 L MCHC RDW 16.4 H Plt Count Lymph % (Auto) [place] % (Auto) Lymph # [place] # Seg Neutrophils % Seg Neuts % (Manual) Lymphocytes % (Manual) Seg Neutrophils # Seg Neutrophils # Man Lymphocytes # (Manual) Monocytes # (Manual) POC ABG pH ABG pH POC ABG pCO2 POC ABG pO2 ABG pO2 ABG HCO3 ABG Base Excess ABG Hemoglobin Oxyhemoglobin Sodium Potassium Chloride Carbon Dioxide BUN Creatinine Glucose POC Glucose 131 H 127 H Calcium Phosphorus Magnesium Direct Bilirubin AST Alkaline Phosphatase C-Reactive Protein Serum Total Protein Total Protein Albumin Prealbumin Ssfdf-4-Ngaxbwaxo Xzahp-5-Kzldoszuu Gamma Globulins PEP Interpretation Triglycerides Urine pH Urine Creatinine Urine Total Protein Vancomycin Trough Digoxin Crossmatch 11/24/19 11/25/19 11/25/19 17:55 07:23 07:23 WBC 13.6 H RBC 3.03 L Hgb 8.2 L Hct 24.6 L MCV 81 L MCH 27 L MCHC RDW 16.8 H Plt Count 441 H Lymph % (Auto) 10.3 L [place] % (Auto) Lymph # Casey # 0.9 H Seg Neutrophils % 81.2 H Seg Neuts % (Manual) Lymphocytes % (Manual) Seg Neutrophils # 11.1 H Seg Neutrophils # Man Lymphocytes # (Manual) Monocytes # (Manual) POC ABG pH ABG pH POC ABG pCO2 POC ABG pO2 ABG pO2 ABG HCO3 ABG Base Excess ABG Hemoglobin Oxyhemoglobin Sodium 135 L Potassium 3.3 L 3.4 L Chloride 97.3 L 95.0 L Carbon Dioxide BUN 7 L 5 L Creatinine 0.5 L 0.4 L Glucose 107 H POC Glucose Calcium Phosphorus Magnesium Direct Bilirubin AST Alkaline Phosphatase C-Reactive Protein Serum Total Protein Total Protein Albumin Prealbumin Bmsqy-2-Xttfuekou Wcdxu-7-Lvionazyn Gamma Globulins PEP Interpretation Triglycerides Urine pH Urine Creatinine Urine Total Protein Vancomycin Trough Digoxin Crossmatch 11/25/19 11/26/19 11/26/19 16:58 11:35 17:46 WBC RBC Hgb Hct MCV MCH MCHC RDW Plt Count Lymph % (Auto) [place] % (Auto) Lymph # [place] # Seg Neutrophils % Seg Neuts % (Manual) Lymphocytes % (Manual) Seg Neutrophils # Seg Neutrophils # Man Lymphocytes # (Manual) Monocytes # (Manual) POC ABG pH ABG pH POC ABG pCO2 POC ABG pO2 ABG pO2 ABG HCO3 ABG Base Excess ABG Hemoglobin Oxyhemoglobin Sodium Potassium Chloride Carbon Dioxide BUN Creatinine Glucose POC Glucose 135 H 135 H 219 H Calcium Phosphorus Magnesium Direct Bilirubin AST Alkaline Phosphatase C-Reactive Protein Serum Total Protein Total Protein Albumin Prealbumin Iztty-9-Atgjkptkr Jmewm-2-Mok[place]alt Gamma Globulins PEP Interpretation Triglycerides Urine pH Urine Creatinine Urine Total Protein Vancomycin Trough Digoxin Crossmatch 11/27/19 11/27/19 11/27/19 12:08 17:13 23:59 WBC RBC Hgb Hct MCV MCH MCHC RDW Plt Count Lymph % (Auto) [place] % (Auto) Lymph # Casey # Seg Neutrophils % Seg Neuts % (Manual) Lymphocytes % (Manual) Seg Neutrophils # Seg Neutrophils # Man Lymphocytes # (Manual) Monocytes # (Manual) POC ABG pH ABG pH POC ABG pCO2 POC ABG pO2 ABG pO2 ABG HCO3 ABG Base Excess ABG Hemoglobin Oxyhemoglobin Sodium Potassium Chloride Carbon Dioxide BUN Creatinine Glucose POC Glucose 186 H 137 H 194 H Calcium Phosphorus Magnesium Direct Bilirubin AST Alkaline Phosphatase C-Reactive Protein Serum Total Protein Total Protein Albumin Prealbumin Atqor-2-Cpegawjzv Ihmfi-3-Jscptaobx Gamma Globulins PEP Interpretation Triglycerides Urine pH Urine Creatinine Urine Total Protein Vancomycin Trough Digoxin Crossmatch 11/28/19 11/28/19 11/28/19 05:30 05:30 06:14 WBC 15.1 H RBC 2.97 L Hgb 8.0 L Hct 24.4 L MCV 82 L MCH 27 L MCHC RDW 17.0 H Plt Count Lymph % (Auto) 9.9 L [place] % (Auto) Lymph # Casey # 1.0 H Seg Neutrophils % 82.7 H Seg Neuts % (Manual) Lymphocytes % (Manual) Seg Neutrophils # 12.5 H Seg Neutrophils # Man Lymphocytes # (Manual) Monocytes # (Manual) POC ABG pH ABG pH POC ABG pCO2 POC ABG pO2 ABG pO2 ABG HCO3 ABG Base Excess ABG Hemoglobin Oxyhemoglobin Sodium 136 L Potassium 3.1 L Chloride 96.3 L Carbon Dioxide BUN 6 L Creatinine 0.5 L Glucose POC Glucose 116 H Calcium Phosphorus Magnesium 1.60 L Direct Bilirubin AST Alkaline Phosphatase C-Reactive Protein Serum Total Protein Total Protein 6.2 L Albumin 2.2 L Prealbumin Eofkv-5-Ywiaikqni Bdupj-6-Sjtpqfjgc Gamma Globulins PEP Interpretation Triglycerides Urine pH Urine Creatinine Urine Total Protein Vancomycin Trough Digoxin Crossmatch 11/28/19 11/28/19 11/29/19 08:40 17:05 07:38 WBC RBC Hgb Hct MCV MCH MCHC RDW Plt Count Lymph % (Auto) [place] % (Auto) Lymph # Casey # Seg Neutrophils % Seg Neuts % (Manual) Lymphocytes % (Manual) Seg Neutrophils # Seg Neutrophils # Man Lymphocytes # (Manual) Monocytes # (Manual) POC ABG pH ABG pH POC ABG pCO2 POC ABG pO2 ABG pO2 ABG HCO3 ABG Base Excess ABG Hemoglobin Oxyhemoglobin Sodium Potassium Chloride Carbon Dioxide BUN Creatinine Glucose POC Glucose 227 H 108 H 118 H Calcium Phosphorus Magnesium Direct Bilirubin AST Alkaline Phosphatase C-Reactive Protein Serum Total Protein Total Protein Albumin Prealbumin Qcrde-2-Ersvtdhbh Ubeza-2-Pzrczkpfb Gamma Globulins PEP Interpretation Triglycerides Urine pH Urine Creatinine Urine Total Protein Vancomycin Trough Digoxin Crossmatch 11/29/19 11/30/19 11/30/19 12:00 07:08 07:08 WBC 14.9 H RBC 3.11 L Hgb 8.4 L Hct 25.1 L MCV 81 L MCH 27 L MCHC RDW 17.3 H Plt Count 460 H Lymph % (Auto) 9.3 L [place] % (Auto) Lymph # Casey # 1.0 H Seg Neutrophils % 83.3 H Seg Neuts % (Manual) Lymphocytes % (Manual) Seg Neutrophils # 12.4 H Seg Neutrophils # Man Lymphocytes # (Manual) Monocytes # (Manual) POC ABG pH ABG pH POC ABG pCO2 POC ABG pO2 ABG pO2 ABG HCO3 ABG Base Excess ABG Hemoglobin Oxyhemoglobin Sodium 136 L Potassium 3.5 L Chloride 95.5 L Carbon Dioxide BUN 7 L Creatinine 0.5 L Glucose 74 L POC Glucose 193 H Calcium Phosphorus Magnesium Direct Bilirubin AST Alkaline Phosphatase 138 H C-Reactive Protein Serum Total Protein Total Protein Albumin 2.2 L Prealbumin Dajiy-6-Rntekewfy Jcxzs-7-Siytkwsen Gamma Globulins PEP Interpretation Triglycerides Urine pH Urine Creatinine Urine Total Protein Vancomycin Trough Digoxin Crossmatch 12/01/19 12/01/19 12/01/19 05:53 05:53 12:35 WBC 11.6 H RBC 3.05 L Hgb 8.1 L Hct 24.8 L MCV 81 L MCH 27 L MCHC RDW 16.9 H Plt Count Lymph % (Auto) 12.4 L Casey % (Auto) 8.6 H Lymph # Casey # 1.0 H Seg Neutrophils % 78.5 H Seg Neuts % (Manual) Lymphocytes % (Manual) Seg Neutrophils # 9.1 H Seg Neutrophils # Man Lymphocytes # (Manual) Monocytes # (Manual) POC ABG pH ABG pH POC ABG pCO2 POC ABG pO2 ABG pO2 ABG HCO3 ABG Base Excess ABG Hemoglobin Oxyhemoglobin Sodium 135 L Potassium 3.4 L Chloride 97.3 L Carbon Dioxide BUN 7 L Creatinine 0.5 L Glucose POC Glucose 113 H Calcium Phosphorus Magnesium Direct Bilirubin AST Alkaline Phosphatase C-Reactive Protein Serum Total Protein Total Protein Albumin Prealbumin [id number] Ylzpt-[id number] Gamma Globulins PEP Interpretation Triglycerides Urine pH Urine Creatinine Urine Total Protein Vancomycin Trough Digoxin Crossmatch 12/02/19 11:56 WBC RBC Hgb Hct MCV MCH MCHC RDW Plt Count Lymph % (Auto) Casey % (Auto) Lymph # Casey # Seg Neutrophils % Seg Neuts % (Manual) Lymphocytes % (Manual) Seg Neutrophils # Seg Neutrophils # Man Lymphocytes # (Manual) Monocytes # (Manual) POC ABG pH ABG pH POC ABG pCO2 POC ABG pO2 ABG pO2 ABG HCO3 ABG Base Excess ABG Hemoglobin Oxyhemoglobin Sodium Potassium Chloride Carbon Dioxide BUN Creatinine Glucose POC Glucose 120 H Calcium Phosphorus Magnesium Direct Bilirubin AST Alkaline Phosphatase C-Reactive Protein Serum Total Protein Total Protein Albumin Prealbumin [id number] Wzuth-1-Wonzjseeq Gamma Globulins PEP Interpretation Triglycerides Urine pH Urine Creatinine Urine Total Protein Vancomycin Trough Digoxin Crossmatch
[2019-12-02] MEDS: ENOXAPARIN 40 MG/0.4 ML INJ SUB-Q SCH (21:42)
[2019-12-03] MEDS: INSULIN LISPRO 100 UNIT/ML SUB-Q SCH ×4 (00:36→17:59)
[2019-12-03] MEDS: ACETAMINOPHEN 500 MG TAB PO PRN ×2 (01:38→12:50)
[2019-12-03] MEDS: diphenhydrAMINE 25 MG CAP PO PRN (01:38)
[2019-12-03] MEDS: METOPROLOL TARTRATE 50 MG TAB PO SCH ×3 (06:01→23:02)
[2019-12-03] MEDS: AMIODARONE 200 MG TAB PO SCH (09:32)
[2019-12-03] MEDS: PANTOPRAZOLE 40 MG TAB PO SCH (09:32)
[2019-12-03] MEDS: CITALOPRAM 20 MG TAB PO SCH (09:32)
[2019-12-03] MEDS: HYDROcodone/ACETAMINOPHEN 10-325MG TAB PO PRN ×3 (10:32→23:02)
[2019-12-03] MEDS: ARFORMOTEROL 15 MCG/2 ML NEBU IH SCH ×2 (11:03→21:25)
[2019-12-03] MEDS: BUDESONIDE 0.5 MG/2 ML NEBU IH SCH ×2 (11:04→21:25)
[2019-12-03] MEDS: IPRATROPIUM/ALBUTEROL SULFATE 3 ML AMPUL.NEB IH SCH ×3 (11:05→21:25)
[2019-12-03] MEDS ORDERED: ACETAMINOPHEN 325 MG TAB PO PRN (12:57)
--- NOTE | 2019-12-03 17:21 | Progress Note ---
Assessment and Plan Imp: 1. Colon perforation/peritonitis/anastamotic leak s/p multiple surgeries 2. Sepsis 3. Acute respiratory failure, hypoxia 4. Obesity 5. KALI 6. Centrilobular emphysema, severe 7. Chronic nicotine dependence, cigarettes 8. HTN 9. CAD s/p PCI 10. Ischemic cardiomyopathy 11. PTX on L Rec: 1. Finished ABX 2. Off O2 3. Cont. current nebs 4. Optimize nutrition 5. DVT PPx 6. Stop smoking 7. Stable for placement pulm-devries Plan of care reviewed with patient, he understands/agrees Subjective Date of service: 12/03/19 Principal diagnosis: acute renal failure Interval history: No events. On RA. No SOB, chest pain, cough. Alert, appropriate. Active Medications Acetaminophen (Tylenol) 650 mg PO Q6H PRN PRN Reason: Pain, Mild (1-3) Last Admin: 12/03/19 13:00 Dose: 650 mg Documented by: Acetaminophen/Hydrocodone Bitart ([place] 10/325) 1 each PO Q6H PRN PRN Reason: Pain, Moderate (4-6) Last Admin: 12/03/19 10:32 Dose: 1 each Documented by: Albuterol/Ipratropium (Duoneb *Not For Prn Use*) 1 ampul IH TIDRT [facility] Last Admin: 12/03/19 11:05 Dose: Not Given Documented by: Amiodarone HCl (Cordarone) 200 mg PO QDAY [facility] Last Admin: 12/03/19 09:32 Dose: 200 mg Documented by: Arformoterol Tartrate (Brovana Nebu) 15 mcg IH Q12HRT [facility] Last Admin: 12/03/19 11:03 Dose: 15 mcg Documented by: Budesonide (Pulmicort) 0.5 mg IH Q12HRT [facility] Last Admin: 12/03/19 11:04 Dose: 0.5 mg Documented by: Citalopram Hydrobromide (Celexa) 20 mg PO DAILY [facility] Last Admin: 12/03/19 09:32 Dose: 20 mg Documented by: Diphenhydramine HCl (Benadryl) 25 mg PO Q6H PRN PRN Reason: Itching Last Admin: 12/03/19 01:38 Dose: 25 mg Documented by: Enoxaparin Sodium (Enoxaparin) 40 mg SUB-Q QDAY@2200 [facility] Last Admin: 12/02/19 21:42 Dose: 40 mg Documented by: Haloperidol Lactate (Haldol) 5 mg IV Q6H PRN PRN Reason: Agitation Last Admin: 11/12/19 03:33 Dose: 5 mg Documented by: Hydralazine HCl (Apresoline) 10 mg IV Q4HR PRN PRN Reason: Hypertension Last Admin: 11/02/19 15:34 Dose: 10 mg Documented by: Hydromorphone HCl (Dilaudid) 1 mg IV Q4H PRN PRN Reason: Pain , Severe (7-10) Last Admin: 12/01/19 18:28 Dose: 1 mg Documented by: Insulin Human Lispro (Humalog) 0 unit SUB-Q Q6HR [facility]; Protocol Last Admin: 12/03/19 13:28 Dose: Not Given Documented by: Metoprolol Tartrate (Metoprolol) 2.5 mg IV Q4HR PRN PRN Reason: HR >130 Last Admin: 11/01/19 18:00 Dose: 2.5 mg Documented by: Metoprolol Tartrate (Metoprolol) 12.5 mg PO Q8HR [facility] Last Admin: 12/03/19 13:43 Dose: 12.5 mg Documented by: Multi-Ingred Cream/Lotion/Oil/Oint (Artificial Tears Ophth Oint) 1 applic OU Q4HR PRN PRN Reason: Dry Eye(s) Pantoprazole Sodium (Protonix) 40 mg PO DAILY [facility] Last Admin: 12/03/19 09:32 Dose: 40 mg Documented by: Sodium Chloride (Sodium Chloride Flush Syringe 10 Ml) 10 ml IV PRN PRN PRN Reason: LINE FLUSH Last Admin: 11/28/19 21:23 Dose: 10 ml Documented by: Zolpidem Tartrate (Ambien) 5 mg FEEDTUBE QHS PRN PRN Reason: Sleep Last Admin: 11/11/19 03:30 Dose: 5 mg Documented by: Objective Vital Signs - 12hr 12/03/19 12/03/19 12/03/19 06:01 09:33 10:59 Temperature Pulse Rate 85 Pulse Rate [ 87 Anterior Bilateral Throughout] Respiratory Rate Respiratory 18 Rate [Anterior Bilateral Throughout] Blood Pressure 100/51 111/50 O2 Sat by Pulse Oximetry 12/03/19 12:40 Temperature 98.3 F Pulse Rate 95 H Pulse Rate [ Anterior Bilateral Throughout] Respiratory 18 Rate Respiratory Rate [Anterior Bilateral Throughout] Blood Pressure 134/66 O2 Sat by Pulse 94 Oximetry Constitutional: no acute distress, alert Eyes: non-icteric ENT: oropharynx moist Neck: supple Effort: normal Ascultation: Bilateral: diminished breath sounds (bases) Cardiovascular: regular rate and rhythm (no mrg) Gastrointestinal: tender, other (obese, distended, ostomy in place) Integumentary: normal Extremities: no cyanosis, pink and warm, edema (1+ bilateral LE edema) Neurologic: normal mental status, non-focal exam, pupils equal and round Psychiatric: mood appropriate, affect normal CBC and BMP: 12/01/19 05:53 12/01/19 05:53 ABG, PT/INR, D-dimer: ABG POC ABG pH 7.422 (7.35-7.45) 11/03/19 04:28 ABG pH 7.390 pH Units (7.350-7.450) 10/23/19 04:47 POC ABG pCO2 45.4 (35-45) H 11/03/19 04:28 ABG pCO2 48.4 mm Hg 10/23/19 04:47 POC ABG pO2 83 (80-105) 11/03/19 04:28 ABG pO2 68.9 mm Hg (80.0-90.0) L 10/23/19 04:47 POC ABG HCO3 29.6 (22-26 mml/L) 11/03/19 04:28 POC ABG Total CO2 31 (23-27mmol/L) 11/03/19 04:28 POC ABG O2 Sat 96 11/03/19 04:28 ABG O2 Saturation 96.6 % (95.0-99.0) 10/23/19 04:47 Abnormal lab findings: Abnormal Labs 10/06/19 10/06/19 10/07/19 05:36 05:36 05:54 WBC 21.8 H 21.5 H RBC 3.55 L Hgb 10.9 L Hct 32.7 L MCV MCH MCHC RDW Plt Count Lymph % (Auto) [place] % (Auto) Lymph # [place] # Seg Neutrophils % Seg Neuts % (Manual) 91.0 H Lymphocytes % (Manual) 2.0 L Seg Neutrophils # Seg Neutrophils # Man 19.8 H Lymphocytes # (Manual) 0.4 L Monocytes # (Manual) 1.1 H POC ABG pH ABG pH POC ABG pCO2 POC ABG pO2 ABG pO2 ABG HCO3 ABG Base Excess ABG Hemoglobin Oxyhemoglobin Sodium 135 L Potassium Chloride 95.9 L Carbon Dioxide BUN Creatinine 0.7 L Glucose POC Glucose Calcium Phosphorus Magnesium Direct Bilirubin AST Alkaline Phosphatase C-Reactive Protein Serum Total Protein Total Protein 5.7 L Albumin 2.5 L Prealbumin Dcslj-2-Qarukiisa Yiovs-8-Ekklbdlyq Gamma Globulins PEP Interpretation Triglycerides Urine pH Urine Creatinine Urine Total Protein Vancomycin Trough Digoxin Crossmatch 10/07/19 10/09/19 10/09/19 05:54 10:52 10:52 WBC 16.6 H RBC Hgb Hct MCV MCH MCHC RDW Plt Count 498 H Lymph % (Auto) [place] % (Auto) Lymph # [place] # Seg Neutrophils % Seg Neuts % (Manual) 93.0 H Lymphocytes % (Manual) 5.0 L Seg Neutrophils # Seg Neutrophils # Man 15.4 H Lymphocytes # (Manual) 0.8 L Monocytes # (Manual) POC ABG pH ABG pH POC ABG pCO2 POC ABG pO2 ABG pO2 ABG HCO3 ABG Base Excess ABG Hemoglobin Oxyhemoglobin Sodium Potassium Chloride 97.9 L Carbon Dioxide 20 L D BUN 23 H Creatinine 1.7 H D Glucose 109 H POC Glucose Calcium 8.1 L Phosphorus Magnesium Direct Bilirubin AST Alkaline Phosphatase C-Reactive Protein Serum Total Protein Total Protein Albumin Prealbumin Sgkik-0-Gxqnzlqbc Znrsc-7-Rqkyvcsvl Gamma Globulins PEP Interpretation Triglycerides Urine pH Urine Creatinine Urine Total Protein Vancomycin Trough Digoxin Crossmatch 10/09/19 10/10/19 10/10/19 17:23 05:30 05:30 WBC 14.6 H RBC Hgb 11.1 L Hct 33.5 L MCV MCH MCHC RDW Plt Count 527 H Lymph % (Auto) [place] % (Auto) Lymph # [place] # Seg Neutrophils % Seg Neuts % (Manual) Lymphocytes % (Manual) Seg Neutrophils # Seg Neutrophils # Man Lymphocytes # (Manual) Monocytes # (Manual) POC ABG pH ABG pH POC ABG pCO2 POC ABG pO2 ABG pO2 ABG HCO3 ABG Base Excess ABG Hemoglobin Oxyhemoglobin Sodium 130 L D Potassium 5.1 H Chloride 90.0 L 91.0 L Carbon Dioxide 20 L 20 L BUN 27 H 35 H Creatinine 1.9 H 2.0 H Glucose 104 H POC Glucose Calcium Phosphorus Magnesium Direct Bilirubin AST Alkaline Phosphatase C-Reactive Protein Serum Total Protein Total Protein Albumin Prealbumin Lpoan-9-Nkzgttvim Rvcnm-7-Qtwekoizl Gamma Globulins PEP Interpretation Triglycerides Urine pH Urine Creatinine Urine Total Protein Vancomycin Trough Digoxin Crossmatch 10/10/19 10/10/19 10/11/19 08:33 08:44 05:41 WBC 13.2 H RBC Hgb 11.3 L Hct 33.8 L MCV MCH MCHC RDW 15.3 H Plt Count 543 H Lymph % (Auto) [place] % (Auto) Lymph # [place] # Seg Neutrophils % Seg Neuts % (Manual) Lymphocytes % (Manual) Seg Neutrophils # Seg Neutrophils # Man Lymphocytes # (Manual) Monocytes # (Manual) POC ABG pH ABG pH POC ABG pCO2 POC ABG pO2 ABG pO2 ABG HCO3 ABG Base Excess ABG Hemoglobin Oxyhemoglobin Sodium Potassium Chloride Carbon Dioxide BUN Creatinine Glucose 113 H POC Glucose 117 H Calcium Phosphorus Magnesium Direct Bilirubin AST Alkaline Phosphatase C-Reactive Protein Serum Total Protein Total Protein Albumin Prealbumin Biptq-5-Qvstjbbtp Zksea-9-Mrlluehbn Gamma Globulins PEP Interpretation Triglycerides Urine pH Urine Creatinine Urine Total Protein Vancomycin Trough Digoxin Crossmatch 10/11/19 10/11/19 10/11/19 05:41 06:23 06:23 WBC RBC Hgb Hct MCV MCH MCHC RDW Plt Count Lymph % (Auto) [place] % (Auto) Lymph # [place] # Seg Neutrophils % Seg Neuts % (Manual) Lymphocytes % (Manual) Seg Neutrophils # Seg Neutrophils # Man Lymphocytes # (Manual) Monocytes # (Manual) POC ABG pH ABG pH POC ABG pCO2 POC ABG pO2 ABG pO2 ABG HCO3 ABG Base Excess ABG Hemoglobin Oxyhemoglobin Sodium 134 L Potassium Chloride 96.3 L Carbon Dioxide BUN 37 H Creatinine Glucose 58 L POC Glucose Calcium Phosphorus 4.90 H Magnesium Direct Bilirubin AST Alkaline Phosphatase C-Reactive Protein Serum Total Protein Total Protein Albumin Prealbumin Oprit-4-Tsbwzlyco Vzehe-7-Iukmaqrcv Gamma Globulins PEP Interpretation Triglycerides Urine pH Urine Creatinine 118.2 H 116.8 H Urine Total Protein 105 H 104 H Vancomycin Trough Digoxin Crossmatch 11/28/19 11/29/19 11/29/19 09:00 06:09 06:09 WBC 13.8 H RBC 3.39 L Hgb 10.2 L Hct 30.9 L MCV MCH MCHC RDW 15.5 H Plt Count 459 H Lymph % (Auto) [place] % (Auto) Lymph # [place] # Seg Neutrophils % Seg Neuts % (Manual) Lymphocytes % (Manual) Seg Neutrophils # Seg Neutrophils # Man Lymphocytes # (Manual) Monocytes # (Manual) POC ABG pH ABG pH POC ABG pCO2 POC ABG pO2 ABG pO2 ABG HCO3 ABG Base Excess ABG Hemoglobin Oxyhemoglobin Sodium 131 L Potassium Chloride 96.2 L Carbon Dioxide 21 L BUN 43 H Creatinine Glucose 72 L POC Glucose Calcium Phosphorus Magnesium Direct Bilirubin AST Alkaline Phosphatase C-Reactive Protein Serum Total Protein 5.2 L Total Protein Albumin 1.9 L Prealbumin Voqdr-5-Aouvyviun 0.9 H Vsddq-1-Mtulongoh 1.0 H Gamma Globulins 0.7 L PEP Interpretation see below H Triglycerides Urine pH Urine Creatinine Urine Total Protein Vancomycin Trough Digoxin Crossmatch 10/12/19 10/12/19 10/12/19 08:20 09:30 09:30 WBC RBC Hgb Hct MCV MCH MCHC RDW Plt Count Lymph % (Auto) [place] % (Auto) Lymph # [place] # Seg Neutrophils % Seg Neuts % (Manual) Lymphocytes % (Manual) Seg Neutrophils # Seg Neutrophils # Man Lymphocytes # (Manual) Monocytes # (Manual) POC ABG pH ABG pH POC ABG pCO2 POC ABG pO2 63 L ABG pO2 ABG HCO3 ABG Base Excess ABG Hemoglobin Oxyhemoglobin Sodium Potassium Chloride Carbon Dioxide BUN Creatinine Glucose POC Glucose Calcium Phosphorus Magnesium 2.50 H Direct Bilirubin 0.3 H AST Alkaline Phosphatase C-Reactive Protein Serum Total Protein Total Protein 5.1 L Albumin 2.2 L Prealbumin Iqonk-0-Scvbcvfme Ujbpk-0-Mvhmaswfl Gamma Globulins PEP Interpretation Triglycerides Urine pH Urine Creatinine Urine Total Protein Vancomycin Trough Digoxin Crossmatch 10/13/19 10/13/19 10/13/19 04:20 04:20 13:20 WBC 15.7 H RBC 3.64 L Hgb 10.9 L Hct 33.1 L MCV MCH MCHC RDW 15.8 H Plt Count 488 H Lymph % (Auto) [place] % (Auto) Lymph # [place] # Seg Neutrophils % Seg Neuts % (Manual) Lymphocytes % (Manual) Seg Neutrophils # Seg Neutrophils # Man Lymphocytes # (Manual) Monocytes # (Manual) POC ABG pH ABG pH POC ABG pCO2 POC ABG pO2 ABG pO2 ABG HCO3 ABG Base Excess ABG Hemoglobin Oxyhemoglobin Sodium Potassium Chloride Carbon Dioxide BUN 28 H Creatinine Glucose POC Glucose Calcium Phosphorus Magnesium Direct Bilirubin AST Alkaline Phosphatase C-Reactive Protein Serum Total Protein Total Protein Albumin Prealbumin Gzjsr-9-Dkesmvvmu Yzftl-6-Alqgiqusd Gamma Globulins PEP Interpretation Triglycerides Urine pH Urine Creatinine Urine Total Protein Vancomycin Trough Digoxin Crossmatch See Detail 10/13/19 10/13/19 10/14/19 18:24 20:05 04:47 WBC 24.2 H RBC Hgb 10.9 L Hct 34.2 L MCV MCH MCHC RDW 17.0 H Plt Count 442 H Lymph % (Auto) [place] % (Auto) Lymph # [place] # Seg Neutrophils % Seg Neuts % (Manual) Lymphocytes % (Manual) Seg Neutrophils # Seg Neutrophils # Man Lymphocytes # (Manual) Monocytes # (Manual) POC ABG pH ABG pH 7.180 L* 7.278 L POC ABG pCO2 POC ABG pO2 ABG pO2 130.7 H ABG HCO3 ABG Base Excess -6.5 L -6.5 L ABG Hemoglobin 12.2 L 12.3 L Oxyhemoglobin 92.9 L Sodium Potassium Chloride Carbon Dioxide BUN Creatinine Glucose POC Glucose Calcium Phosphorus Magnesium Direct Bilirubin AST Alkaline Phosphatase C-Reactive Protein Serum Total Protein Total Protein Albumin Prealbumin Qepzb-2-Rmuohyukm Ncotx-9-Ccxxdknrl Gamma Globulins PEP Interpretation Triglycerides Urine pH Urine Creatinine Urine Total Protein Vancomycin Trough Digoxin Crossmatch 10/14/19 10/14/19 10/14/19 04:47 05:40 10:14 WBC RBC Hgb Hct MCV MCH MCHC RDW Plt Count Lymph % (Auto) [place] % (Auto) Lymph # [place] # Seg Neutrophils % Seg Neuts % (Manual) Lymphocytes % (Manual) Seg Neutrophils # Seg Neutrophils # Man Lymphocytes # (Manual) Monocytes # (Manual) POC ABG pH ABG pH POC ABG pCO2 POC ABG pO2 ABG pO2 76.3 L ABG HCO3 19.1 L ABG Base Excess -5.8 L ABG Hemoglobin 10.9 L Oxyhemoglobin 93.4 L Sodium Potassium 5.1 H D Chloride 109.2 H Carbon Dioxide 17 L BUN 38 H Creatinine 1.8 H D Glucose 104 H POC Glucose Calcium 7.4 L Phosphorus 5.60 H Magnesium Direct Bilirubin AST Alkaline Phosphatase C-Reactive Protein Serum Total Protein Total Protein Albumin Prealbumin Qsqoi-2-Sgysfqoor Ubpor-9-Bmqplymgd Gamma Globulins PEP Interpretation Triglycerides Urine pH Urine Creatinine Urine Total Protein Vancomycin Trough Digoxin Crossmatch 10/14/19 10/15/19 10/15/19 23:46 04:32 04:32 WBC 15.5 H RBC 2.89 L Hgb 8.8 L Hct 27.3 L D MCV MCH MCHC RDW 16.6 H Plt Count Lymph % (Auto) [place] % (Auto) Lymph # [place] # Seg Neutrophils % Seg Neuts % (Manual) Lymphocytes % (Manual) Seg Neutrophils # Seg Neutrophils # Man Lymphocytes # (Manual) Monocytes # (Manual) POC ABG pH ABG pH POC ABG pCO2 POC ABG pO2 ABG pO2 ABG HCO3 ABG Base Excess ABG Hemoglobin Oxyhemoglobin Sodium 147 H Potassium Chloride 114.0 H Carbon Dioxide 19 L BUN 42 H Creatinine Glucose 112 H POC Glucose 113 H Calcium 7.3 L Phosphorus Magnesium Direct Bilirubin AST 72 H Alkaline Phosphatase C-Reactive Protein 30.60 H Serum Total Protein Total Protein 4.0 L D Albumin 1.7 L Prealbumin 0.030 L Hezla-9-Xqixqghyi Ndkep-6-Xnewfojnx Gamma Globulins PEP Interpretation Triglycerides Urine pH Urine Creatinine Urine Total Protein Vancomycin Trough Digoxin Crossmatch 10/15/19 10/15/19 10/15/19 05:30 12:08 17:23 WBC RBC Hgb Hct MCV MCH MCHC RDW Plt Count Lymph % (Auto) [place] % (Auto) Lymph # [place] # Seg Neutrophils % Seg Neuts % (Manual) Lymphocytes % (Manual) Seg Neutrophils # Seg Neutrophils # Man Lymphocytes # (Manual) Monocytes # (Manual) POC ABG pH ABG pH 7.296 L POC ABG pCO2 POC ABG pO2 ABG pO2 114.7 H ABG HCO3 ABG Base Excess -3.7 L ABG Hemoglobin 8.9 L Oxyhemoglobin Sodium Potassium Chloride Carbon Dioxide BUN Creatinine Glucose POC Glucose 106 H 106 H Calcium Phosphorus Magnesium Direct Bilirubin AST Alkaline Phosphatase C-Reactive Protein Serum Total Protein Total Protein Albumin Prealbumin Hxley-0-Ycaeevadw Vhyko-5-Mlafskpqn Gamma Globulins PEP Interpretation Triglycerides Urine pH Urine Creatinine Urine Total Protein Vancomycin Trough Digoxin Crossmatch 10/16/19 10/16/19 10/16/19 00:07 04:44 05:24 WBC RBC Hgb Hct MCV MCH MCHC RDW Plt Count Lymph % (Auto) [place] % (Auto) Lymph # [place] # Seg Neutrophils % Seg Neuts % (Manual) Lymphocytes % (Manual) Seg Neutrophils # Seg Neutrophils # Man Lymphocytes # (Manual) Monocytes # (Manual) POC ABG pH ABG pH POC ABG pCO2 POC ABG pO2 ABG pO2 ABG HCO3 ABG Base Excess ABG Hemoglobin Oxyhemoglobin Sodium 150 H Potassium Chloride 115.8 H Carbon Dioxide BUN 35 H Creatinine Glucose 129 H POC Glucose 119 H 129 H Calcium 7.3 L Phosphorus 1.80 L D Magnesium Direct Bilirubin AST Alkaline Phosphatase C-Reactive Protein Serum Total Protein Total Protein Albumin Prealbumin Bdvar-0-Ifgjrkdyj Vomlt-4-Ypilzfjzl Gamma Globulins PEP Interpretation Triglycerides Urine pH Urine Creatinine Urine Total Protein Vancomycin Trough Digoxin Crossmatch 10/16/19 10/16/19 10/16/19 06:53 09:20 11:58 WBC 14.6 H RBC 2.70 L Hgb 8.1 L Hct 25.2 L MCV MCH MCHC RDW 16.7 H Plt Count Lymph % (Auto) [place] % (Auto) Lymph # [place] # Seg Neutrophils % Seg Neuts % (Manual) 79.0 H Lymphocytes % (Manual) 4.0 L Seg Neutrophils # Seg Neutrophils # Man 11.5 H Lymphocytes # (Manual) 0.6 L Monocytes # (Manual) POC ABG pH ABG pH POC ABG pCO2 47.0 H POC ABG pO2 ABG pO2 ABG HCO3 ABG Base Excess ABG Hemoglobin Oxyhemoglobin Sodium Potassium Chloride Carbon Dioxide BUN Creatinine Glucose POC Glucose Calcium Phosphorus Magnesium Direct Bilirubin AST Alkaline Phosphatase C-Reactive Protein Serum Total Protein Total Protein Albumin Prealbumin Nhrtz-8-Xfovnwsha Xyqiu-4-Swxnightf Gamma Globulins PEP Interpretation Triglycerides Urine pH Urine Creatinine Urine Total Protein Vancomycin Trough Digoxin Crossmatch See Detail 10/16/19 10/16/19 10/16/19 15:23 17:50 23:58 WBC RBC Hgb Hct MCV MCH MCHC RDW Plt Count Lymph % (Auto) [place] % (Auto) Lymph # [place] # Seg Neutrophils % Seg Neuts % (Manual) Lymphocytes % (Manual) Seg Neutrophils # Seg Neutrophils # Man Lymphocytes # (Manual) Monocytes # (Manual) POC ABG pH ABG pH POC ABG pCO2 POC ABG pO2 ABG pO2 ABG HCO3 ABG Base Excess ABG Hemoglobin Oxyhemoglobin Sodium Potassium Chloride Carbon Dioxide BUN Creatinine Glucose POC Glucose 221 H 201 H 179 H Calcium Phosphorus Magnesium Direct Bilirubin AST Alkaline Phosphatase C-Reactive Protein Serum Total Protein Total Protein Albumin Prealbumin Xxxbk-2-Toyjttwbl Qqzyl-6-Nmwqumkmx Gamma Globulins PEP Interpretation Triglycerides Urine pH Urine Creatinine Urine Total Protein Vancomycin Trough Digoxin Crossmatch 10/17/19 10/17/19 10/17/19 04:08 04:08 05:41 WBC 22.3 H RBC 3.35 L Hgb 10.0 L Hct 31.2 L D MCV MCH MCHC RDW 16.1 H Plt Count Lymph % (Auto) [place] % (Auto) Lymph # [place] # Seg Neutrophils % Seg Neuts % (Manual) Lymphocytes % (Manual) Seg Neutrophils # Seg Neutrophils # Man Lymphocytes # (Manual) Monocytes # (Manual) POC ABG pH 7.310 L ABG pH POC ABG pCO2 52.8 H POC ABG pO2 70 L ABG pO2 ABG HCO3 ABG Base Excess ABG Hemoglobin Oxyhemoglobin Sodium 147 H Potassium Chloride 114.9 H Carbon Dioxide BUN 36 H Creatinine Glucose 165 H POC Glucose Calcium 6.9 L Phosphorus 2.20 L D Magnesium Direct Bilirubin AST Alkaline Phosphatase C-Reactive Protein Serum Total Protein Total Protein Albumin Prealbumin Axazk-1-Hrnsmilks Kslrr-7-Gukcphzry Gamma Globulins PEP Interpretation Triglycerides Urine pH Urine Creatinine Urine Total Protein Vancomycin Trough Digoxin Crossmatch 10/17/19 10/17/19 10/17/19 05:42 11:33 18:17 WBC RBC Hgb Hct MCV MCH MCHC RDW Plt Count Lymph % (Auto) [place] % (Auto) Lymph # [place] # Seg Neutrophils % Seg Neuts % (Manual) Lymphocytes % (Manual) Seg Neutrophils # Seg Neutrophils # Man Lymphocytes # (Manual) Monocytes # (Manual) POC ABG pH ABG pH POC ABG pCO2 POC ABG pO2 ABG pO2 ABG HCO3 ABG Base Excess ABG Hemoglobin Oxyhemoglobin Sodium Potassium Chloride Carbon Dioxide BUN Creatinine Glucose POC Glucose 149 H 154 H 163 H Calcium Phosphorus Magnesium Direct Bilirubin AST Alkaline Phosphatase C-Reactive Protein Serum Total Protein Total Protein Albumin Prealbumin Wlkge-3-Lwslblfae Cbtjt-2-Aeesbpwhm Gamma Globulins PEP Interpretation Triglycerides Urine pH Urine Creatinine Urine Total Protein Vancomycin Trough Digoxin Crossmatch 10/17/19 10/18/1910/18/19 23:34 03:29 04:50 WBC RBC Hgb Hct MCV MCH MCHC RDW Plt Count Lymph % (Auto) [place] % (Auto) Lymph # [place] # Seg Neutrophils % Seg Neuts % (Manual) Lymphocytes % (Manual) Seg Neutrophils # Seg Neutrophils # Man Lymphocytes # (Manual) Monocytes # (Manual) POC ABG pH ABG pH POC ABG pCO2 POC ABG pO2 ABG pO2 78.8 L ABG HCO3 ABG Base Excess ABG Hemoglobin 8.8 L Oxyhemoglobin Sodium Potassium Chloride 111.8 H Carbon Dioxide BUN 27 H Creatinine 0.6 L Glucose 140 H POC Glucose 135 H Calcium 7.1 L Phosphorus 1.80 L Magnesium Direct Bilirubin AST Alkaline Phosphatase C-Reactive Protein Serum Total Protein Total Protein Albumin Prealbumin Hjizu-0-Lkcmagnkj Mchrp-3-Ptotffyae Gamma Globulins PEP Interpretation Triglycerides Urine pH Urine Creatinine Urine Total Protein Vancomycin Trough Digoxin Crossmatch 10/18/19 10/18/19 10/18/19 05:45 11:19 18:26 WBC RBC Hgb Hct MCV MCH MCHC RDW Plt Count Lymph % (Auto) [place] % (Auto) Lymph # [place] # Seg Neutrophils % Seg Neuts % (Manual) Lymphocytes % (Manual) Seg Neutrophils # Seg Neutrophils # Man Lymphocytes # (Manual) Monocytes # (Manual) POC ABG pH ABG pH POC ABG pCO2 POC ABG pO2 ABG pO2 ABG HCO3 ABG Base Excess ABG Hemoglobin Oxyhemoglobin Sodium Potassium Chloride Carbon Dioxide BUN Creatinine Glucose POC Glucose 145 H 152 H 125 H Calcium Phosphorus Magnesium Direct Bilirubin AST Alkaline Phosphatase C-Reactive Protein Serum Total Protein Total Protein Albumin Prealbumin Wiwzc-5-Vvdgtupcj Wzhgn-3-Wxukqfpxj Gamma Globulins PEP Interpretation Triglycerides Urine pH Urine Creatinine Urine Total Protein Vancomycin Trough Digoxin Crossmatch 10/18/19 10/19/19 10/19/19 23:27 04:21 04:21 WBC RBC Hgb Hct MCV MCH MCHC RDW Plt Count Lymph % (Auto) [place] % (Auto) Lymph # [place] # Seg Neutrophils % Seg Neuts % (Manual) Lymphocytes % (Manual) Seg Neutrophils # Seg Neutrophils # Man Lymphocytes # (Manual) Monocytes # (Manual) POC ABG pH ABG pH POC ABG pCO2 POC ABG pO2 ABG pO2 ABG HCO3 ABG Base Excess ABG Hemoglobin Oxyhemoglobin Sodium Potassium Chloride 108.4 H Carbon Dioxide BUN 22 H Creatinine 0.5 L Glucose 123 H POC Glucose 127 H Calcium 7.4 L Phosphorus 1.80 L Magnesium Direct Bilirubin AST Alkaline Phosphatase C-Reactive Protein Serum Total Protein Total Protein Albumin Prealbumin Fgwrf-3-Mnblwiqsk Gftdm-7-Zubpxtrxu Gamma Globulins PEP Interpretation Triglycerides Urine pH Urine Creatinine Urine Total Protein Vancomycin Trough Digoxin 0.7 L Crossmatch 10/19/19 10/19/19 10/19/19 05:00 05:35 11:26 WBC RBC Hgb Hct MCV MCH MCHC RDW Plt Count Lymph % (Auto) [place] % (Auto) Lymph # [place] # Seg Neutrophils % Seg Neuts % (Manual) Lymphocytes % (Manual) Seg Neutrophils # Seg Neutrophils # Man Lymphocytes # (Manual) Monocytes # (Manual) POC ABG pH ABG pH 7.456 H POC ABG pCO2 POC ABG pO2 ABG pO2 78.8 L ABG HCO3 ABG Base Excess ABG Hemoglobin 5.6 L Oxyhemoglobin Sodium Potassium Chloride Carbon Dioxide BUN Creatinine Glucose POC Glucose 124 H 111 H Calcium Phosphorus Magnesium Direct Bilirubin AST Alkaline Phosphatase C-Reactive Protein Serum Total Protein Total Protein Albumin Prealbumin Ohwbs-4-Ftfyfvuyg Hknls-8-Zbqkqbcmh Gamma Globulins PEP Interpretation Triglycerides Urine pH Urine Creatinine Urine Total Protein Vancomycin Trough Digoxin Crossmatch 10/19/19 10/20/19 10/20/19 23:23 04:50 05:17 WBC RBC Hgb Hct MCV MCH MCHC RDW Plt Count Lymph % (Auto) [place] % (Auto) Lymph # [place] # Seg Neutrophils % Seg Neuts % (Manual) Lymphocytes % (Manual) Seg Neutrophils # Seg Neutrophils # Man Lymphocytes # (Manual) Monocytes # (Manual) POC ABG pH ABG pH POC ABG pCO2 POC ABG pO2 ABG pO2 ABG HCO3 ABG Base Excess ABG Hemoglobin Oxyhemoglobin Sodium Potassium Chloride 108.1 H Carbon Dioxide BUN Creatinine 0.4 L Glucose 134 H POC Glucose 129 H 123 H Calcium 7.1 L Phosphorus Magnesium Direct Bilirubin AST Alkaline Phosphatase C-Reactive Protein Serum Total Protein Total Protein Albumin Prealbumin Pgsct-2-Fbfhvysaj Mfkil-1-Sdujnlkyg Gamma Globulins PEP Interpretation Triglycerides Urine pH Urine Creatinine Urine Total Protein Vancomycin Trough Digoxin Crossmatch 10/20/19 10/20/19 10/21/19 11:40 19:06 05:08 WBC RBC Hgb Hct MCV MCH MCHC RDW Plt Count Lymph % (Auto) [place] % (Auto) Lymph # [place] # Seg Neutrophils % Seg Neuts % (Manual) Lymphocytes % (Manual) Seg Neutrophils # Seg Neutrophils # Man Lymphocytes # (Manual) Monocytes # (Manual) POC ABG pH ABG pH POC ABG pCO2 POC ABG pO2 ABG pO2 ABG HCO3 ABG Base Excess ABG Hemoglobin Oxyhemoglobin Sodium Potassium Chloride Carbon Dioxide BUN Creatinine Glucose POC Glucose 139 H 117 H 131 H Calcium Phosphorus Magnesium Direct Bilirubin AST Alkaline Phosphatase C-Reactive Protein Serum Total Protein Total Protein Albumin Prealbumin Xlnfi-6-Tqvthxndv Upast-8-Fpieldnkk Gamma Globulins PEP Interpretation Triglycerides Urine pH Urine Creatinine Urine Total Protein Vancomycin Trough Digoxin Crossmatch 10/21/19 10/21/19 10/21/19 05:30 12:04 17:31 WBC RBC Hgb Hct MCV MCH MCHC RDW Plt Count Lymph % (Auto) [place] % (Auto) Lymph # [place] # Seg Neutrophils % Seg Neuts % (Manual) Lymphocytes % (Manual) Seg Neutrophils # Seg Neutrophils # Man Lymphocytes # (Manual) Monocytes # (Manual) POC ABG pH ABG pH POC ABG pCO2 POC ABG pO2 ABG pO2 ABG HCO3 ABG Base Excess ABG Hemoglobin Oxyhemoglobin Sodium Potassium Chloride 107.8 H Carbon Dioxide BUN Creatinine 0.5 L Glucose 119 H POC Glucose 119 H 110 H Calcium 7.6 L Phosphorus Magnesium Direct Bilirubin AST Alkaline Phosphatase C-Reactive Protein Serum Total Protein Total Protein Albumin Prealbumin Cgfax-8-Okdozovff Gnnxf-2-Femqvjzqj Gamma Globulins PEP Interpretation Triglycerides Urine pH Urine Creatinine Urine Total Protein Vancomycin Trough Digoxin Crossmatch 10/22/19 10/22/19 10/22/19 05:14 05:37 12:07 WBC RBC Hgb Hct MCV MCH MCHC RDW Plt Count Lymph % (Auto) [place] % (Auto) Lymph # [place] # Seg Neutrophils % Seg Neuts % (Manual) Lymphocytes % (Manual) Seg Neutrophils # Seg Neutrophils # Man Lymphocytes # (Manual) Monocytes # (Manual) POC ABG pH ABG pH POC ABG pCO2 POC ABG pO2 ABG pO2 ABG HCO3 ABG Base Excess ABG Hemoglobin Oxyhemoglobin Sodium Potassium Chloride Carbon Dioxide BUN Creatinine 0.5 L Glucose 116 H POC Glucose 110 H 126 H Calcium 7.7 L Phosphorus Magnesium Direct Bilirubin AST Alkaline Phosphatase C-Reactive Protein Serum Total Protein Total Protein Albumin Prealbumin Girew-6-Nlwufdwxj Nycjg-9-Yqguabfal Gamma Globulins PEP Interpretation Triglycerides Urine pH Urine Creatinine Urine Total Protein Vancomycin Trough Digoxin Crossmatch 10/22/19 10/22/19 10/23/19 18:36 23:19 04:39 WBC RBC Hgb Hct MCV MCH MCHC RDW Plt Count Lymph % (Auto) [place] % (Auto) Lymph # [place] # Seg Neutrophils % Seg Neuts % (Manual) Lymphocytes % (Manual) Seg Neutrophils # Seg Neutrophils # Man Lymphocytes # (Manual) Monocytes # (Manual) POC ABG pH ABG pH POC ABG pCO2 POC ABG pO2 ABG pO2 ABG HCO3 ABG Base Excess ABG Hemoglobin Oxyhemoglobin Sodium Potassium Chloride Carbon Dioxide BUN Creatinine Glucose POC Glucose 120 H 127 H 112 H Calcium Phosphorus Magnesium Direct Bilirubin AST Alkaline Phosphatase C-Reactive Protein Serum Total Protein Total Protein Albumin Prealbumin Pxxad-6-Mistfzirz Nsfkc-6-Fshyggrau Gamma Globulins PEP Interpretation Triglycerides Urine pH Urine Creatinine Urine Total Protein Vancomycin Trough Digoxin Crossmatch 10/23/19 10/23/19 10/23/19 04:47 05:15 10:44 WBC 18.3 H RBC 2.33 L Hgb 7.0 L Hct 21.5 L MCV MCH MCHC RDW 16.2 H Plt Count Lymph % (Auto) 4.9 L [place] % (Auto) 8.1 H Lymph # 0.9 L [place] # 1.5 H Seg Neutrophils % 86.7 H Seg Neuts % (Manual) Lymphocytes % (Manual) Seg Neutrophils # 15.9 H Seg Neutrophils # Man Lymphocytes # (Manual) Monocytes # (Manual) POC ABG pH ABG pH POC ABG pCO2 POC ABG pO2 ABG pO2 68.9 L ABG HCO3 28.7 H ABG Base Excess 3.4 H ABG Hemoglobin 6.6 L Oxyhemoglobin 94.1 L Sodium Potassium Chloride Carbon Dioxide BUN Creatinine 0.5 L Glucose 165 H POC Glucose Calcium 7.4 L Phosphorus Magnesium Direct Bilirubin AST Alkaline Phosphatase C-Reactive Protein Serum Total Protein Total Protein Albumin Prealbumin Wtnat-6-Rptprdmgj Tjmmy-9-Whlilgykb Gamma Globulins PEP Interpretation Triglycerides Urine pH Urine Creatinine Urine Total Protein Vancomycin Trough Digoxin Crossmatch 10/23/19 10/23/19 10/23/19 10:44 11:46 11:50 WBC RBC Hgb Hct MCV MCH MCHC RDW Plt Count Lymph % (Auto) [place] % (Auto) Lymph # [place] # Seg Neutrophils % Seg Neuts % (Manual) Lymphocytes % (Manual) Seg Neutrophils # Seg Neutrophils # Man Lymphocytes # (Manual) Monocytes # (Manual) POC ABG pH ABG pH POC ABG pCO2 POC ABG pO2 ABG pO2 ABG HCO3 ABG Base Excess ABG Hemoglobin Oxyhemoglobin Sodium Potassium Chloride Carbon Dioxide BUN Creatinine Glucose POC Glucose 138 H Calcium Phosphorus Magnesium Direct Bilirubin 0.7 H AST Alkaline Phosphatase C-Reactive Protein Serum Total Protein Total Protein 4.5 L Albumin 1.2 L Prealbumin Gltwe-9-Zrfhfdxia Wtlbo-9-Adqsfnylf Gamma Globulins PEP Interpretation Triglycerides Urine pH Urine Creatinine Urine Total Protein Vancomycin Trough Digoxin Crossmatch See Detail 10/23/19 10/24/19 10/24/19 17:53 00:07 05:05 WBC RBC Hgb Hct MCV MCH MCHC RDW Plt Count Lymph % (Auto) [place] % (Auto) Lymph # [place] # Seg Neutrophils % Seg Neuts % (Manual) Lymphocytes % (Manual) Seg Neutrophils # Seg Neutrophils # Man Lymphocytes # (Manual) Monocytes # (Manual) POC ABG pH ABG pH POC ABG pCO2 POC ABG pO2 ABG pO2 ABG HCO3 ABG Base Excess ABG Hemoglobin Oxyhemoglobin Sodium Potassium 3.5 L Chloride Carbon Dioxide BUN Creatinine 0.5 L Glucose 116 H POC Glucose 137 H 110 H Calcium 8.0 L Phosphorus Magnesium Direct Bilirubin AST Alkaline Phosphatase C-Reactive Protein Serum Total Protein Total Protein Albumin Prealbumin Spykq-6-Zvumcdkxo Wkvon-5-Ooubvlywy Gamma Globulins PEP Interpretation Triglycerides Urine pH Urine Creatinine Urine Total Protein Vancomycin Trough Digoxin Crossmatch 10/24/19 10/24/19 10/24/19 05:05 11:56 13:00 WBC 13.0 H RBC 2.73 L Hgb 8.0 L Hct 24.2 L MCV MCH MCHC RDW 17.9 H Plt Count Lymph % (Auto) 7.0 L [place] % (Auto) 9.5 H Lymph # 0.9 L [place] # 1.2 H Seg Neutrophils % 82.7 H Seg Neuts % (Manual) Lymphocytes % (Manual) Seg Neutrophils # 10.7 H Seg Neutrophils # Man Lymphocytes # (Manual) Monocytes # (Manual) POC ABG pH ABG pH POC ABG pCO2 POC ABG pO2 ABG pO2 ABG HCO3 ABG Base Excess ABG Hemoglobin Oxyhemoglobin Sodium Potassium Chloride Carbon Dioxide BUN Creatinine Glucose POC Glucose 159 H Calcium Phosphorus Magnesium Direct Bilirubin AST Alkaline Phosphatase C-Reactive Protein Serum Total Protein Total Protein Albumin Prealbumin Qhdqc-8-Zhcxmpzjq Vdmmj-0-Kkoxejbuy Gamma Globulins PEP Interpretation Triglycerides 216 H Urine pH Urine Creatinine Urine Total Protein Vancomycin Trough Digoxin Crossmatch 10/24/19 10/24/19 10/25/19 17:42 23:45 04:19 WBC RBC Hgb Hct MCV MCH MCHC RDW Plt Count Lymph % (Auto) [place] % (Auto) Lymph # [place] # Seg Neutrophils % Seg Neuts % (Manual) Lymphocytes % (Manual) Seg Neutrophils # Seg Neutrophils # Man Lymphocytes # (Manual) Monocytes # (Manual) POC ABG pH ABG pH POC ABG pCO2 POC ABG pO2 ABG pO2 ABG HCO3 ABG Base Excess ABG Hemoglobin Oxyhemoglobin Sodium 147 H Potassium Chloride Carbon Dioxide 33 H BUN Creatinine 0.5 L Glucose 111 H POC Glucose 120 H 116 H Calcium Phosphorus Magnesium Direct Bilirubin AST Alkaline Phosphatase C-Reactive Protein Serum Total Protein Total Protein 5.7 L D Albumin 2.5 L Prealbumin Cncrn-4-Lntcwbgey Fzbnf-5-Rrssgtpwv Gamma Globulins PEP Interpretation Triglycerides 230 H Urine pH Urine Creatinine Urine Total Protein Vancomycin Trough Digoxin Crossmatch 10/25/19 10/25/19 10/25/19 04:19 05:31 12:20 WBC RBC 2.69 L Hgb 8.1 L Hct 23.9 L MCV MCH MCHC RDW 17.3 H Plt Count Lymph % (Auto) [place] % (Auto) Lymph # [place] # Seg Neutrophils % Seg Neuts % (Manual) Lymphocytes % (Manual) Seg Neutrophils # Seg Neutrophils # Man Lymphocytes # (Manual) Monocytes # (Manual) POC ABG pH ABG pH POC ABG pCO2 POC ABG pO2 ABG pO2 ABG HCO3 ABG Base Excess ABG Hemoglobin Oxyhemoglobin Sodium Potassium Chloride Carbon Dioxide BUN Creatinine Glucose POC Glucose 126 H 114 H Calcium Phosphorus Magnesium Direct Bilirubin AST Alkaline Phosphatase C-Reactive Protein Serum Total Protein Total Protein Albumin Prealbumin Ckmrw-0-Tjminrdmg Iievg-0-Gilaswrul Gamma Globulins PEP Interpretation Triglycerides Urine pH Urine Creatinine Urine Total Protein Vancomycin Trough Digoxin Crossmatch 10/25/19 10/25/19 10/26/19 18:30 23:09 06:15 WBC RBC Hgb Hct MCV MCH MCHC RDW Plt Count Lymph % (Auto) [place] % (Auto) Lymph # [place] # Seg Neutrophils % Seg Neuts % (Manual) Lymphocytes % (Manual) Seg Neutrophils # Seg Neutrophils # Man Lymphocytes # (Manual) Monocytes # (Manual) POC ABG pH ABG pH POC ABG pCO2 POC ABG pO2 ABG pO2 ABG HCO3 ABG Base Excess ABG Hemoglobin Oxyhemoglobin Sodium Potassium 3.5 L Chloride Carbon Dioxide BUN Creatinine 0.5 L Glucose 112 H POC Glucose 121 H 107 H Calcium 8.3 L Phosphorus Magnesium Direct Bilirubin AST Alkaline Phosphatase 148 H C-Reactive Protein Serum Total Protein Total Protein 5.9 L Albumin 2.4 L Prealbumin Barxl-4-Lsdbfvvue Gpyak-0-Jlynmntjf Gamma Globulins PEP Interpretation Triglycerides Urine pH Urine Creatinine Urine Total Protein Vancomycin Trough Digoxin Crossmatch 10/26/19 10/26/19 10/26/19 06:15 12:21 17:35 WBC RBC Hgb Hct MCV MCH MCHC RDW Plt Count Lymph % (Auto) [place] % (Auto) Lymph # [place] # Seg Neutrophils % Seg Neuts % (Manual) Lymphocytes % (Manual) Seg Neutrophils # Seg Neutrophils # Man Lymphocytes # (Manual) Monocytes # (Manual) POC ABG pH ABG pH POC ABG pCO2 POC ABG pO2 ABG pO2 ABG HCO3 ABG Base Excess ABG Hemoglobin Oxyhemoglobin Sodium Potassium Chloride Carbon Dioxide BUN Creatinine Glucose POC Glucose 134 H 141 H Calcium Phosphorus Magnesium Direct Bilirubin AST Alkaline Phosphatase C-Reactive Protein Serum Total Protein Total Protein Albumin Prealbumin Apwom-1-Besbbjmgx Wqeub-1-Ipwhizrwt Gamma Globulins PEP Interpretation Triglycerides 185 H Urine pH Urine Creatinine Urine Total Protein Vancomycin Trough Digoxin Crossmatch 10/26/19 10/27/19 10/27/19 Unknown 04:30 11:33 WBC RBC Hgb Hct MCV MCH MCHC RDW Plt Count Lymph % (Auto) [place] % (Auto) Lymph # [place] # Seg Neutrophils % Seg Neuts % (Manual) Lymphocytes % (Manual) Seg Neutrophils # Seg Neutrophils # Man Lymphocytes # (Manual) Monocytes # (Manual) POC ABG pH ABG pH POC ABG pCO2 POC ABG pO2 ABG pO2 ABG HCO3 ABG Base Excess ABG Hemoglobin Oxyhemoglobin Sodium Potassium 3.2 L Chloride Carbon Dioxide BUN 23 H Creatinine 0.6 L Glucose 130 H POC Glucose 131 H Calcium 7.9 L Phosphorus Magnesium Direct Bilirubin AST Alkaline Phosphatase C-Reactive Protein Serum Total Protein Total Protein Albumin Prealbumin Lswal-7-Lvlsfmszs Ctles-2-Latxkulgl Gamma Globulins PEP Interpretation Triglycerides Urine pH 9.0 H Urine Creatinine Urine Total Protein Vancomycin Trough Digoxin Crossmatch 10/27/19 10/28/19 10/28/19 17:45 05:25 05:49 WBC RBC 2.85 L Hgb 8.3 L Hct 26.8 L MCV MCH MCHC 31 L RDW 17.4 H Plt Count Lymph % (Auto) 8.9 L [place] % (Auto) 14.3 H Lymph # 0.8 L [place] # 1.3 H Seg Neutrophils % 76.5 H Seg Neuts % (Manual) Lymphocytes % (Manual) Seg Neutrophils # Seg Neutrophils # Man Lymphocytes # (Manual) Monocytes # (Manual) POC ABG pH ABG pH POC ABG pCO2 POC ABG pO2 ABG pO2 ABG HCO3 ABG Base Excess ABG Hemoglobin Oxyhemoglobin Sodium Potassium Chloride Carbon Dioxide BUN Creatinine Glucose POC Glucose 121 H 120 H Calcium Phosphorus Magnesium Direct Bilirubin AST Alkaline Phosphatase C-Reactive Protein Serum Total Protein Total Protein Albumin Prealbumin Jwcaa-5-Zfdzodaql Iyvrt-1-Tgopazksd Gamma Globulins PEP Interpretation Triglycerides Urine pH Urine Creatinine Urine Total Protein Vancomycin Trough Digoxin Crossmatch 10/28/19 10/28/19 10/28/19 07:19 12:07 18:21 WBC RBC Hgb Hct MCV MCH MCHC RDW Plt Count Lymph % (Auto) [place] % (Auto) Lymph # [place] # Seg Neutrophils % Seg Neuts % (Manual) Lymphocytes % (Manual) Seg Neutrophils # Seg Neutrophils # Man Lymphocytes # (Manual) Monocytes # (Manual) POC ABG pH ABG pH POC ABG pCO2 POC ABG pO2 ABG pO2 ABG HCO3 ABG Base Excess ABG Hemoglobin Oxyhemoglobin Sodium Potassium Chloride Carbon Dioxide BUN 23 H Creatinine 0.5 L Glucose 129 H POC Glucose 127 H 130 H Calcium 8.0 L Phosphorus Magnesium Direct Bilirubin AST Alkaline Phosphatase C-Reactive Protein Serum Total Protein Total Protein Albumin Prealbumin Jfpzp-3-Kelqsvfmm Azecp-2-Ehbgbshgq Gamma Globulins PEP Interpretation Triglycerides Urine pH Urine Creatinine Urine Total Protein Vancomycin Trough Digoxin Crossmatch 10/28/19 10/29/19 10/29/19 23:30 05:30 05:30 WBC 11.2 H RBC 3.36 L Hgb 9.7 L Hct 29.4 L MCV MCH MCHC RDW 16.7 H Plt Count Lymph % (Auto) [place] % (Auto) 16.0 H Lymph # [place] # 1.8 H Seg Neutrophils % 70.2 H Seg Neuts % (Manual) Lymphocytes % (Manual) Seg Neutrophils # 7.9 H Seg Neutrophils # Man Lymphocytes # (Manual) Monocytes # (Manual) POC ABG pH ABG pH POC ABG pCO2 POC ABG pO2 ABG pO2 ABG HCO3 ABG Base Excess ABG Hemoglobin Oxyhemoglobin Sodium Potassium Chloride Carbon Dioxide BUN 23 H Creatinine 0.5 L Glucose POC Glucose 130 H Calcium 8.3 L Phosphorus Magnesium Direct Bilirubin AST Alkaline Phosphatase C-Reactive Protein Serum Total Protein Total Protein Albumin Prealbumin Ffkas-4-Bjcyicglb Hpxfd-1-Ptvygtmff Gamma Globulins PEP Interpretation Triglycerides Urine pH Urine Creatinine Urine Total Protein Vancomycin Trough Digoxin Crossmatch 10/29/19 10/29/19 10/29/19 05:52 13:10 18:02 WBC RBC Hgb Hct MCV MCH MCHC RDW Plt Count Lymph % (Auto) [place] % (Auto) Lymph # [place] # Seg Neutrophils % Seg Neuts % (Manual) Lymphocytes % (Manual) Seg Neutrophils # Seg Neutrophils # Man Lymphocytes # (Manual) Monocytes # (Manual) POC ABG pH ABG pH POC ABG pCO2 POC ABG pO2 ABG pO2 ABG HCO3 ABG Base Excess ABG Hemoglobin Oxyhemoglobin Sodium Potassium Chloride Carbon Dioxide BUN Creatinine Glucose POC Glucose 111 H 140 H 140 H Calcium Phosphorus Magnesium Direct Bilirubin AST Alkaline Phosphatase C-Reactive Protein Serum Total Protein Total Protein Albumin Prealbumin Borbd-2-Giensfuny Bqkpd-0-Vpcxqiems Gamma Globulins PEP Interpretation Triglycerides Urine pH Urine Creatinine Urine Total Protein Vancomycin Trough Digoxin Crossmatch 10/29/19 10/30/19 10/30/19 23:58 01:05 05:15 WBC RBC Hgb Hct MCV MCH MCHC RDW Plt Count Lymph % (Auto) [place] % (Auto) Lymph # [place] # Seg Neutrophils % Seg Neuts % (Manual) Lymphocytes % (Manual) Seg Neutrophils # Seg Neutrophils # Man Lymphocytes # (Manual) Monocytes # (Manual) POC ABG pH ABG pH POC ABG pCO2 62.0 H POC ABG pO2 168 H ABG pO2 ABG HCO3 ABG Base Excess ABG Hemoglobin Oxyhemoglobin Sodium 147 H Potassium Chloride 107.8 H Carbon Dioxide BUN 26 H Creatinine 0.5 L Glucose 139 H POC Glucose 161 H Calcium Phosphorus Magnesium 2.40 H Direct Bilirubin AST Alkaline Phosphatase C-Reactive Protein Serum Total Protein Total Protein Albumin Prealbumin Andhr-7-Igqyunfxy Mtyhy-6-Djjmofetd Gamma Globulins PEP Interpretation Triglycerides Urine pH Urine Creatinine Urine Total Protein Vancomycin Trough Digoxin Crossmatch 10/30/19 10/30/19 10/30/19 05:15 06:32 09:44 WBC 13.8 H RBC 3.59 L Hgb 10.1 L Hct 32.4 L MCV MCH MCHC 31 L RDW 17.4 H Plt Count Lymph % (Auto) 11.2 L [place] % (Auto) 13.6 H Lymph # [place] # 1.9 H Seg Neutrophils % 75.1 H Seg Neuts % (Manual) Lymphocytes % (Manual) Seg Neutrophils # 10.4 H Seg Neutrophils # Man Lymphocytes # (Manual) Monocytes # (Manual) POC ABG pH ABG pH POC ABG pCO2 51.7 H POC ABG pO2 111 H ABG pO2 ABG HCO3 ABG Base Excess ABG Hemoglobin Oxyhemoglobin Sodium Potassium Chloride Carbon Dioxide BUN Creatinine Glucose POC Glucose 141 H Calcium Phosphorus Magnesium Direct Bilirubin AST Alkaline Phosphatase C-Reactive Protein Serum Total Protein Total Protein Albumin Prealbumin Mguze-3-Ygsjodnsv Nduwx-0-Gspxvbwbu Gamma Globulins PEP Interpretation Triglycerides Urine pH Urine Creatinine Urine Total Protein Vancomycin Trough Digoxin Crossmatch 10/30/19 10/31/19 10/31/19 18:10 04:18 04:18 WBC 11.7 H RBC 3.11 L Hgb 9.0 L Hct 27.9 L MCV MCH MCHC RDW 17.1 H Plt Count Lymph % (Auto) [place] % (Auto) Lymph # [place] # Seg Neutrophils % Seg Neuts % (Manual) Lymphocytes % (Manual) Seg Neutrophils # Seg Neutrophils # Man Lymphocytes # (Manual) Monocytes # (Manual) POC ABG pH ABG pH POC ABG pCO2 POC ABG pO2 ABG pO2 ABG HCO3 ABG Base Excess ABG Hemoglobin Oxyhemoglobin Sodium 148 H Potassium Chloride 108.7 H Carbon Dioxide BUN 37 H Creatinine 0.7 L Glucose 102 H POC Glucose 131 H Calcium Phosphorus Magnesium Direct Bilirubin AST Alkaline Phosphatase C-Reactive Protein Serum Total Protein Total Protein Albumin Prealbumin Aooja-8-Nllurctco Dqgcp-2-Jufqwagya Gamma Globulins PEP Interpretation Triglycerides Urine pH Urine Creatinine Urine Total Protein Vancomycin Trough Digoxin Crossmatch 10/31/19 10/31/19 10/31/19 11:32 12:55 18:10 WBC RBC Hgb Hct MCV MCH MCHC RDW Plt Count Lymph % (Auto) [place] % (Auto) Lymph # [place] # Seg Neutrophils % Seg Neuts % (Manual) Lymphocytes % (Manual) Seg Neutrophils # Seg Neutrophils # Man Lymphocytes # (Manual) Monocytes # (Manual) POC ABG pH ABG pH POC ABG pCO2 57.9 H POC ABG pO2 135 H ABG pO2 ABG HCO3 ABG Base Excess ABG Hemoglobin Oxyhemoglobin Sodium Potassium Chloride Carbon Dioxide BUN Creatinine Glucose POC Glucose 120 H Calcium Phosphorus Magnesium Direct Bilirubin AST Alkaline Phosphatase C-Reactive Protein Serum Total Protein Total Protein Albumin Prealbumin Majre-5-Fqjhnojjc Pfeob-8-Odyqdysxq Gamma Globulins PEP Interpretation Triglycerides Urine pH Urine Creatinine Urine Total Protein Vancomycin Trough 41.7 H Digoxin Crossmatch 10/31/19 11/01/19 11/01/19 23:08 05:30 05:30 WBC 14.6 H RBC 3.13 L Hgb 8.9 L Hct 27.7 L MCV MCH MCHC RDW 17.0 H Plt Count Lymph % (Auto) [place] % (Auto) Lymph # [place] # Seg Neutrophils % Seg Neuts % (Manual) Lymphocytes % (Manual) Seg Neutrophils # Seg Neutrophils # Man Lymphocytes # (Manual) Monocytes # (Manual) POC ABG pH ABG pH POC ABG pCO2 POC ABG pO2 ABG pO2 ABG HCO3 ABG Base Excess ABG Hemoglobin Oxyhemoglobin Sodium 149 H Potassium Chloride 109.0 H Carbon Dioxide BUN 26 H Creatinine 0.7 L Glucose 129 H POC Glucose 109 H Calcium Phosphorus Magnesium Direct Bilirubin AST Alkaline Phosphatase C-Reactive Protein Serum Total Protein Total Protein Albumin Prealbumin Eohzc-1-Tmrnlktha Lppry-3-Dcufiuwfd Gamma Globulins PEP Interpretation Triglycerides Urine pH Urine Creatinine Urine Total Protein Vancomycin Trough Digoxin Crossmatch 11/01/19 11/01/19 11/01/19 06:09 06:10 11:52 WBC RBC Hgb Hct MCV MCH MCHC RDW Plt Count Lymph % (Auto) [place] % (Auto) Lymph # [place] # Seg Neutrophils % Seg Neuts % (Manual) Lymphocytes % (Manual) Seg Neutrophils # Seg Neutrophils # Man Lymphocytes # (Manual) Monocytes # (Manual) POC ABG pH ABG pH POC ABG pCO2 51.3 H POC ABG pO2 71 L ABG pO2 ABG HCO3 ABG Base Excess ABG Hemoglobin Oxyhemoglobin Sodium Potassium Chloride Carbon Dioxide BUN Creatinine Glucose POC Glucose 113 H 106 H Calcium Phosphorus Magnesium Direct Bilirubin AST Alkaline Phosphatase C-Reactive Protein Serum Total Protein Total Protein Albumin Prealbumin Sfufi-1-Qzipqcjha Cbyvt-9-Lormwfwxt Gamma Globulins PEP Interpretation Triglycerides Urine pH Urine Creatinine Urine Total Protein Vancomycin Trough Digoxin Crossmatch 11/01/19 11/02/19 11/02/19 18:18 03:40 03:40 WBC RBC 2.36 L Hgb 7.2 L Hct 20.8 L D MCV MCH MCHC 35 H RDW 16.8 H Plt Count Lymph % (Auto) [place] % (Auto) Lymph # [place] # Seg Neutrophils % Seg Neuts % (Manual) Lymphocytes % (Manual) Seg Neutrophils # Seg Neutrophils # Man Lymphocytes # (Manual) Monocytes # (Manual) POC ABG pH ABG pH POC ABG pCO2 POC ABG pO2 ABG pO2 ABG HCO3 ABG Base Excess ABG Hemoglobin Oxyhemoglobin Sodium 157 H D Potassium 3.0 L D Chloride 117.2 H Carbon Dioxide BUN 23 H Creatinine 0.6 L Glucose 101 H POC Glucose 120 H Calcium 6.4 L D Phosphorus Magnesium Direct Bilirubin AST Alkaline Phosphatase C-Reactive Protein Serum Total Protein Total Protein Albumin Prealbumin Uqizo-6-Rwusbnubs Yusoc-9-Mnvzrfjnt Gamma Globulins PEP Interpretation Triglycerides Urine pH Urine Creatinine Urine Total Protein Vancomycin Trough Digoxin Crossmatch 11/02/19 11/02/19 11/02/19 04:48 05:30 12:43 WBC RBC Hgb Hct MCV MCH MCHC RDW Plt Count Lymph % (Auto) [place] % (Auto) Lymph # [place] # Seg Neutrophils % Seg Neuts % (Manual) Lymphocytes % (Manual) Seg Neutrophils # Seg Neutrophils # Man Lymphocytes # (Manual) Monocytes # (Manual) POC ABG pH ABG pH POC ABG pCO2 50.1 H POC ABG pO2 74 L ABG pO2 ABG HCO3 ABG Base Excess ABG Hemoglobin Oxyhemoglobin Sodium 149 H D Potassium Chloride 110.0 H Carbon Dioxide BUN 23 H Creatinine 0.6 L Glucose POC Glucose 109 H Calcium 8.1 L D Phosphorus Magnesium 2.40 H Direct Bilirubin AST Alkaline Phosphatase C-Reactive Protein Serum Total Protein Total Protein Albumin Prealbumin Kgebz-1-Qkcishgqn Hfotm-4-Thtywfvxk Gamma Globulins PEP Interpretation Triglycerides Urine pH Urine Creatinine Urine Total Protein Vancomycin Trough Digoxin Crossmatch 11/03/19 11/03/19 11/03/19 03:42 03:42 04:13 WBC RBC 2.93 L Hgb 8.5 L Hct 25.8 L MCV MCH MCHC RDW 16.9 H Plt Count Lymph % (Auto) [place] % (Auto) Lymph # [place] # Seg Neutrophils % Seg Neuts % (Manual) Lymphocytes % (Manual) Seg Neutrophils # Seg Neutrophils # Man Lymphocytes # (Manual) Monocytes # (Manual) POC ABG pH 7.540 H ABG pH POC ABG pCO2 POC ABG pO2 51 L ABG pO2 ABG HCO3 ABG Base Excess ABG Hemoglobin Oxyhemoglobin Sodium 147 H Potassium 3.5 L D Chloride 108.6 H Carbon Dioxide BUN Creatinine 0.6 L Glucose 109 H POC Glucose Calcium 8.3 L Phosphorus Magnesium Direct Bilirubin AST Alkaline Phosphatase C-Reactive Protein Serum Total Protein Total Protein Albumin Prealbumin Btlwk-3-Fbxmmajsz Aoxfz-6-Fcjjpcwoz Gamma Globulins PEP Interpretation Triglycerides Urine pH Urine Creatinine Urine Total Protein Vancomycin Trough Digoxin Crossmatch 11/03/19 11/03/19 11/03/19 04:28 12:04 23:02 WBC RBC Hgb Hct MCV MCH MCHC RDW Plt Count Lymph % (Auto) [place] % (Auto) Lymph # [place] # Seg Neutrophils % Seg Neuts % (Manual) Lymphocytes % (Manual) Seg Neutrophils # Seg Neutrophils # Man Lymphocytes # (Manual) Monocytes # (Manual) POC ABG pH ABG pH POC ABG pCO2 45.4 H POC ABG pO2 ABG pO2 ABG HCO3 ABG Base Excess ABG Hemoglobin Oxyhemoglobin Sodium Potassium Chloride Carbon Dioxide BUN Creatinine Glucose POC Glucose 109 H 111 H Calcium Phosphorus Magnesium Direct Bilirubin AST Alkaline Phosphatase C-Reactive Protein Serum Total Protein Total Protein Albumin Prealbumin Drbrg-6-Ecffjhvnq Iiybf-4-Wtecaokza Gamma Globulins PEP Interpretation Triglycerides Urine pH Urine Creatinine Urine Total Protein Vancomycin Trough Digoxin Crossmatch 11/04/19 11/04/19 11/04/19 05:00 05:00 05:19 WBC RBC 2.96 L Hgb 8.6 L Hct 25.5 L MCV MCH MCHC RDW 16.7 H Plt Count Lymph % (Auto) [place] % (Auto) Lymph # [place] # Seg Neutrophils % Seg Neuts % (Manual) Lymphocytes % (Manual) Seg Neutrophils # Seg Neutrophils # Man Lymphocytes # (Manual) Monocytes # (Manual) POC ABG pH ABG pH POC ABG pCO2 POC ABG pO2 ABG pO2 ABG HCO3 ABG Base Excess ABG Hemoglobin Oxyhemoglobin Sodium Potassium 3.5 L Chloride Carbon Dioxide BUN Creatinine 0.5 L Glucose 111 H POC Glucose 106 H Calcium 8.1 L Phosphorus Magnesium Direct Bilirubin AST Alkaline Phosphatase C-Reactive Protein Serum Total Protein Total Protein Albumin Prealbumin Ndgfg-6-Amxdlzioe Naylu-1-Ppuqqdwuz Gamma Globulins PEP Interpretation Triglycerides Urine pH Urine Creatinine Urine Total Protein Vancomycin Trough Digoxin Crossmatch 11/04/19 11/05/19 11/05/19 12:40 00:28 04:19 WBC 12.4 H RBC 2.98 L Hgb 8.5 L Hct 25.5 L MCV MCH MCHC RDW 16.6 H Plt Count Lymph % (Auto) [place] % (Auto) Lymph # [place] # Seg Neutrophils % Seg Neuts % (Manual) Lymphocytes % (Manual) Seg Neutrophils # Seg Neutrophils # Man Lymphocytes # (Manual) Monocytes # (Manual) POC ABG pH ABG pH POC ABG pCO2 POC ABG pO2 ABG pO2 ABG HCO3 ABG Base Excess ABG Hemoglobin Oxyhemoglobin Sodium Potassium Chloride Carbon Dioxide BUN Creatinine Glucose POC Glucose 109 H 132 H Calcium Phosphorus Magnesium Direct Bilirubin AST Alkaline Phosphatase C-Reactive Protein Serum Total Protein Total Protein Albumin Prealbumin Nzkgp-2-Inzimline Qhvic-2-Gyycnnyhl Gamma Globulins PEP Interpretation Triglycerides Urine pH Urine Creatinine Urine Total Protein Vancomycin Trough Digoxin Crossmatch 11/05/19 11/05/19 11/05/19 04:19 05:40 13:14 WBC RBC Hgb Hct MCV MCH MCHC RDW Plt Count Lymph % (Auto) [place] % (Auto) Lymph # [place] # Seg Neutrophils % Seg Neuts % (Manual) Lymphocytes % (Manual) Seg Neutrophils # Seg Neutrophils # Man Lymphocytes # (Manual) Monocytes # (Manual) POC ABG pH ABG pH POC ABG pCO2 POC ABG pO2 ABG pO2 ABG HCO3 ABG Base Excess ABG Hemoglobin Oxyhemoglobin Sodium Potassium 3.4 L Chloride Carbon Dioxide BUN Creatinine 0.4 L Glucose 106 H POC Glucose 136 H 145 H Calcium 8.2 L Phosphorus Magnesium Direct Bilirubin AST Alkaline Phosphatase C-Reactive Protein Serum Total Protein Total Protein Albumin Prealbumin Dgkoj-6-Lkykivxbs Akasb-9-Kcyjyfwmc Gamma Globulins PEP Interpretation Triglycerides Urine pH Urine Creatinine Urine Total Protein Vancomycin Trough Digoxin Crossmatch 11/05/19 11/05/19 11/06/19 18:29 23:42 05:00 WBC 12.2 H RBC 2.89 L Hgb 8.2 L Hct 24.9 L MCV MCH MCHC RDW 16.4 H Plt Count Lymph % (Auto) [place] % (Auto) Lymph # [place] # Seg Neutrophils % Seg Neuts % (Manual) Lymphocytes % (Manual) Seg Neutrophils # Seg Neutrophils # Man Lymphocytes # (Manual) Monocytes # (Manual) POC ABG pH ABG pH POC ABG pCO2 POC ABG pO2 ABG pO2 ABG HCO3 ABG Base Excess ABG Hemoglobin Oxyhemoglobin Sodium Potassium Chloride Carbon Dioxide BUN Creatinine Glucose POC Glucose 138 H 117 H Calcium Phosphorus Magnesium Direct Bilirubin AST Alkaline Phosphatase C-Reactive Protein Serum Total Protein Total Protein Albumin Prealbumin Boubj-4-Wrygxmrrq Qxdwm-6-Ounwszqvu Gamma Globulins PEP Interpretation Triglycerides Urine pH Urine Creatinine Urine Total Protein Vancomycin Trough Digoxin Crossmatch 11/06/19 11/06/19 11/06/19 05:00 05:22 17:39 WBC RBC Hgb Hct MCV MCH MCHC RDW Plt Count Lymph % (Auto) [place] % (Auto) Lymph # [place] # Seg Neutrophils % Seg Neuts % (Manual) Lymphocytes % (Manual) Seg Neutrophils # Seg Neutrophils # Man Lymphocytes # (Manual) Monocytes # (Manual) POC ABG pH ABG pH POC ABG pCO2 POC ABG pO2 ABG pO2 ABG HCO3 ABG Base Excess ABG Hemoglobin Oxyhemoglobin Sodium Potassium Chloride Carbon Dioxide BUN Creatinine 0.4 L Glucose 114 H POC Glucose 121 H 110 H Calcium 8.2 L Phosphorus Magnesium Direct Bilirubin AST Alkaline Phosphatase C-Reactive Protein Serum Total Protein Total Protein Albumin Prealbumin Saotu-1-Xfpherysh Nbhpx-3-Jdmumkneq Gamma Globulins PEP Interpretation Triglycerides Urine pH Urine Creatinine Urine Total Protein Vancomycin Trough Digoxin Crossmatch 11/06/19 11/07/19 11/07/19 23:29 04:06 04:06 WBC 13.0 H RBC 2.80 L Hgb 7.9 L Hct 24.0 L MCV MCH MCHC RDW 16.5 H Plt Count Lymph % (Auto) 7.0 L [place] % (Auto) Lymph # 0.9 L [place] # Seg Neutrophils % 86.3 H Seg Neuts % (Manual) Lymphocytes % (Manual) Seg Neutrophils # 11.2 H Seg Neutrophils # Man Lymphocytes # (Manual) Monocytes # (Manual) POC ABG pH ABG pH POC ABG pCO2 POC ABG pO2 ABG pO2 ABG HCO3 ABG Base Excess ABG Hemoglobin Oxyhemoglobin Sodium Potassium Chloride Carbon Dioxide BUN Creatinine 0.4 L Glucose 110 H POC Glucose 113 H Calcium 8.2 L Phosphorus Magnesium Direct Bilirubin AST Alkaline Phosphatase C-Reactive Protein Serum Total Protein Total Protein Albumin Prealbumin Tspfu-2-Pwmethrau Nqjoc-7-Dhlwquamt Gamma Globulins PEP Interpretation Triglycerides Urine pH Urine Creatinine Urine Total Protein Vancomycin Trough Digoxin Crossmatch 11/07/19 11/07/19 11/07/19 05:43 12:47 18:19 WBC RBC Hgb Hct MCV MCH MCHC RDW Plt Count Lymph % (Auto) [place] % (Auto) Lymph # [place] # Seg Neutrophils % Seg Neuts % (Manual) Lymphocytes % (Manual) Seg Neutrophils # Seg Neutrophils # Man Lymphocytes # (Manual) Monocytes # (Manual) POC ABG pH ABG pH POC ABG pCO2 POC ABG pO2 ABG pO2 ABG HCO3 ABG Base Excess ABG Hemoglobin Oxyhemoglobin Sodium Potassium Chloride Carbon Dioxide BUN Creatinine Glucose POC Glucose 114 H 120 H 112 H Calcium Phosphorus Magnesium Direct Bilirubin AST Alkaline Phosphatase C-Reactive Protein Serum Total Protein Total Protein Albumin Prealbumin Tyzuq-8-Bqqovnzpv Sqhza-7-Nadypifio Gamma Globulins PEP Interpretation Triglycerides Urine pH Urine Creatinine Urine Total Protein Vancomycin Trough Digoxin Crossmatch 11/08/19 11/08/19 11/08/19 03:45 03:45 11:43 WBC 12.7 H RBC 2.82 L Hgb 7.8 L Hct 24.4 L MCV MCH MCHC RDW 16.5 H Plt Count Lymph % (Auto) 9.4 L [place] % (Auto) Lymph # [place] # 0.9 H Seg Neutrophils % 83.0 H Seg Neuts % (Manual) Lymphocytes % (Manual) Seg Neutrophils # 10.6 H Seg Neutrophils # Man Lymphocytes # (Manual) Monocytes # (Manual) POC ABG pH ABG pH POC ABG pCO2 POC ABG pO2 ABG pO2 ABG HCO3 ABG Base Excess ABG Hemoglobin Oxyhemoglobin Sodium Potassium Chloride Carbon Dioxide BUN Creatinine 0.4 L Glucose 107 H POC Glucose 118 H Calcium Phosphorus Magnesium Direct Bilirubin AST Alkaline Phosphatase C-Reactive Protein Serum Total Protein Total Protein Albumin Prealbumin Hasnw-1-Fwldlpfnq Zkbzn-4-Rizeamqte Gamma Globulins PEP Interpretation Triglycerides Urine pH Urine Creatinine Urine Total Protein Vancomycin Trough Digoxin Crossmatch 11/08/19 11/09/19 11/09/19 23:45 12:41 12:56 WBC RBC Hgb Hct MCV MCH MCHC RDW Plt Count Lymph % (Auto) [place] % (Auto) Lymph # [place] # Seg Neutrophils % Seg Neuts % (Manual) Lymphocytes % (Manual) Seg Neutrophils # Seg Neutrophils # Man Lymphocytes # (Manual) Monocytes # (Manual) POC ABG pH ABG pH POC ABG pCO2 POC ABG pO2 ABG pO2 ABG HCO3 ABG Base Excess ABG Hemoglobin Oxyhemoglobin Sodium Potassium Chloride Carbon Dioxide BUN Creatinine Glucose POC Glucose 113 H 107 H 122 H Calcium Phosphorus Magnesium Direct Bilirubin AST Alkaline Phosphatase C-Reactive Protein Serum Total Protein Total Protein Albumin Prealbumin Jwbdv-5-Bhmfqungz Ruylo-7-Jccoelbmk Gamma Globulins PEP Interpretation Triglycerides Urine pH Urine Creatinine Urine Total Protein Vancomycin Trough Digoxin Crossmatch 11/10/19 11/10/19 11/11/19 05:12 12:20 12:13 WBC RBC Hgb Hct MCV MCH MCHC RDW Plt Count Lymph % (Auto) [place] % (Auto) Lymph # [place] # Seg Neutrophils % Seg Neuts % (Manual) Lymphocytes % (Manual) Seg Neutrophils # Seg Neutrophils # Man Lymphocytes # (Manual) Monocytes # (Manual) POC ABG pH ABG pH POC ABG pCO2 POC ABG pO2 ABG pO2 ABG HCO3 ABG Base Excess ABG Hemoglobin Oxyhemoglobin Sodium Potassium Chloride Carbon Dioxide BUN Creatinine Glucose POC Glucose 127 H 125 H 107 H Calcium Phosphorus Magnesium Direct Bilirubin AST Alkaline Phosphatase C-Reactive Protein Serum Total Protein Total Protein Albumin Prealbumin Qyfib-8-Lekjduhrq Agnbl-4-Olrvwvelb Gamma Globulins PEP Interpretation Triglycerides Urine pH Urine Creatinine Urine Total Protein Vancomycin Trough Digoxin Crossmatch 11/11/19 11/11/19 11/12/19 17:29 22:20 06:00 WBC RBC 2.77 L Hgb 7.8 L Hct 23.4 L MCV MCH MCHC RDW 16.6 H Plt Count Lymph % (Auto) 11.9 L [place] % (Auto) 8.9 H Lymph # [place] # 0.9 H Seg Neutrophils % 78.2 H Seg Neuts % (Manual) Lymphocytes % (Manual) Seg Neutrophils # 8.2 H Seg Neutrophils # Man Lymphocytes # (Manual) Monocytes # (Manual) POC ABG pH ABG pH POC ABG pCO2 POC ABG pO2 ABG pO2 ABG HCO3 ABG Base Excess ABG Hemoglobin Oxyhemoglobin Sodium Potassium Chloride Carbon Dioxide BUN Creatinine Glucose POC Glucose 120 H 109 H Calcium Phosphorus Magnesium Direct Bilirubin AST Alkaline Phosphatase C-Reactive Protein Serum Total Protein Total Protein Albumin Prealbumin Dztjj-9-Alcrjavqk Iirqd-5-Rgmadtzbc Gamma Globulins PEP Interpretation Triglycerides Urine pH Urine Creatinine Urine Total Protein Vancomycin Trough Digoxin Crossmatch 11/12/19 11/12/19 11/12/19 07:52 11:58 23:44 WBC RBC Hgb Hct MCV MCH MCHC RDW Plt Count Lymph % (Auto) [place] % (Auto) Lymph # [place] # Seg Neutrophils % Seg Neuts % (Manual) Lymphocytes % (Manual) Seg Neutrophils # Seg Neutrophils # Man Lymphocytes # (Manual) Monocytes # (Manual) POC ABG pH ABG pH POC ABG pCO2 POC ABG pO2 ABG pO2 ABG HCO3 ABG Base Excess ABG Hemoglobin Oxyhemoglobin Sodium Potassium Chloride Carbon Dioxide BUN Creatinine Glucose POC Glucose 120 H 140 H 116 H Calcium Phosphorus Magnesium Direct Bilirubin AST Alkaline Phosphatase C-Reactive Protein Serum Total Protein Total Protein Albumin Prealbumin Cjvru-3-Oqagqlngj Qbzqd-5-Romfbepwv Gamma Globulins PEP Interpretation Triglycerides Urine pH Urine Creatinine Urine Total Protein Vancomycin Trough Digoxin Crossmatch 11/13/19 11/13/19 11/13/19 04:33 04:33 13:43 WBC 11.2 H RBC 2.90 L Hgb 8.1 L Hct 24.5 L MCV MCH MCHC RDW 16.5 H Plt Count Lymph % (Auto) 10.1 L [place] % (Auto) 7.6 H Lymph # 1.1 L [place] # 0.9 H Seg Neutrophils % 81.1 H Seg Neuts % (Manual) Lymphocytes % (Manual) Seg Neutrophils # 9.1 H Seg Neutrophils # Man Lymphocytes # (Manual) Monocytes # (Manual) POC ABG pH ABG pH POC ABG pCO2 POC ABG pO2 ABG pO2 ABG HCO3 ABG Base Excess ABG Hemoglobin Oxyhemoglobin Sodium 135 L Potassium Chloride 91.9 L Carbon Dioxide BUN Creatinine 0.6 L Glucose POC Glucose 122 H Calcium Phosphorus Magnesium Direct Bilirubin AST Alkaline Phosphatase C-Reactive Protein Serum Total Protein Total Protein Albumin Prealbumin Ewdao-8-Vbwtcunkk Ysttr-6-Burqzizlz Gamma Globulins PEP Interpretation Triglycerides Urine pH Urine Creatinine Urine Total Protein Vancomycin Trough Digoxin Crossmatch 11/13/19 11/14/19 11/15/19 17:57 12:35 07:10 WBC 14.8 H RBC 2.89 L Hgb 7.8 L Hct 24.2 L MCV MCH 27 L MCHC RDW 16.9 H Plt Count Lymph % (Auto) [place] % (Auto) Lymph # [place] # Seg Neutrophils % Seg Neuts % (Manual) Lymphocytes % (Manual) Seg Neutrophils # Seg Neutrophils # Man Lymphocytes # (Manual) Monocytes # (Manual) POC ABG pH ABG pH POC ABG pCO2 POC ABG pO2 ABG pO2 ABG HCO3 ABG Base Excess ABG Hemoglobin Oxyhemoglobin Sodium Potassium Chloride Carbon Dioxide BUN Creatinine Glucose POC Glucose 127 H 148 H Calcium Phosphorus Magnesium Direct Bilirubin AST Alkaline Phosphatase C-Reactive Protein Serum Total Protein Total Protein Albumin Prealbumin Xqqja-3-Ytfndsmno Pvifz-7-Plepfaglv Gamma Globulins PEP Interpretation Triglycerides Urine pH Urine Creatinine Urine Total Protein Vancomycin Trough Digoxin Crossmatch 11/15/19 11/15/19 11/16/19 07:10 20:16 10:26 WBC 14.4 H RBC 2.79 L Hgb 7.6 L Hct 23.5 L MCV MCH 27 L MCHC RDW 17.0 H Plt Count Lymph % (Auto) [place] % (Auto) Lymph # [place] # Seg Neutrophils % Seg Neuts % (Manual) Lymphocytes % (Manual) Seg Neutrophils # Seg Neutrophils # Man Lymphocytes # (Manual) Monocytes # (Manual) POC ABG pH ABG pH POC ABG pCO2 POC ABG pO2 ABG pO2 ABG HCO3 ABG Base Excess ABG Hemoglobin Oxyhemoglobin Sodium 133 L 136 L Potassium 3.5 L Chloride 93.7 L 97.4 L Carbon Dioxide BUN Creatinine 0.6 L 0.6 L Glucose 130 H POC Glucose Calcium Phosphorus Magnesium Direct Bilirubin AST Alkaline Phosphatase C-Reactive Protein Serum Total Protein Total Protein Albumin Prealbumin Hbelt-6-Lmpjqhlvm Cvxdc-9-Sbmnbbywq Gamma Globulins PEP Interpretation Triglycerides Urine pH Urine Creatinine Urine Total Protein Vancomycin Trough Digoxin Crossmatch 11/16/19 11/17/19 11/17/19 13:01 00:40 07:22 WBC 14.0 H RBC 2.71 L Hgb 7.4 L Hct 22.8 L MCV MCH 27 L MCHC RDW 17.2 H Plt Count Lymph % (Auto) [place] % (Auto) Lymph # [place] # Seg Neutrophils % Seg Neuts % (Manual) Lymphocytes % (Manual) Seg Neutrophils # Seg Neutrophils # Man Lymphocytes # (Manual) Monocytes # (Manual) POC ABG pH ABG pH POC ABG pCO2 POC ABG pO2 ABG pO2 ABG HCO3 ABG Base Excess ABG Hemoglobin Oxyhemoglobin Sodium Potassium Chloride Carbon Dioxide BUN Creatinine Glucose POC Glucose 117 H 124 H Calcium Phosphorus Magnesium Direct Bilirubin AST Alkaline Phosphatase C-Reactive Protein Serum Total Protein Total Protein Albumin Prealbumin Odtdg-1-Wcxglwlhd Lyidv-4-Hxvdmjqeg Gamma Globulins PEP Interpretation Triglycerides Urine pH Urine Creatinine Urine Total Protein Vancomycin Trough Digoxin Crossmatch 11/17/19 11/17/19 11/17/19 07:22 12:00 17:57 WBC RBC Hgb Hct MCV MCH MCHC RDW Plt Count Lymph % (Auto) [place] % (Auto) Lymph # [place] # Seg Neutrophils % Seg Neuts % (Manual) Lymphocytes % (Manual) Seg Neutrophils # Seg Neutrophils # Man Lymphocytes # (Manual) Monocytes # (Manual) POC ABG pH ABG pH POC ABG pCO2 POC ABG pO2 ABG pO2 ABG HCO3 ABG Base Excess ABG Hemoglobin Oxyhemoglobin Sodium 136 L Potassium Chloride 96.1 L Carbon Dioxide BUN 7 L Creatinine 0.5 L Glucose POC Glucose 130 H 111 H Calcium Phosphorus Magnesium Direct Bilirubin AST Alkaline Phosphatase C-Reactive Protein Serum Total Protein Total Protein Albumin Prealbumin Bywcv-8-Sqnlnzsku Kffmr-3-Dgfjyfqod Gamma Globulins PEP Interpretation Triglycerides Urine pH Urine Creatinine Urine Total Protein Vancomycin Trough Digoxin Crossmatch 11/18/19 11/18/19 11/18/19 06:03 12:12 17:54 WBC RBC Hgb Hct MCV MCH MCHC RDW Plt Count Lymph % (Auto) [place] % (Auto) Lymph # [place] # Seg Neutrophils % Seg Neuts % (Manual) Lymphocytes % (Manual) Seg Neutrophils # Seg Neutrophils # Man Lymphocytes # (Manual) Monocytes # (Manual) POC ABG pH ABG pH POC ABG pCO2 POC ABG pO2 ABG pO2 ABG HCO3 ABG Base Excess ABG Hemoglobin Oxyhemoglobin Sodium Potassium Chloride Carbon Dioxide BUN Creatinine Glucose POC Glucose 113 H 124 H 128 H Calcium Phosphorus Magnesium Direct Bilirubin AST Alkaline Phosphatase C-Reactive Protein Serum Total Protein Total Protein Albumin Prealbumin Ykmev-1-Fgxwjzeaj Friwc-8-Wewwvnern Gamma Globulins PEP Interpretation Triglycerides Urine pH Urine Creatinine Urine Total Protein Vancomycin Trough Digoxin Crossmatch 11/19/19 11/19/1911/20/20 00:54 08:03 11:31 WBC RBC Hgb Hct MCV MCH MCHC RDW Plt Count Lymph % (Auto) [place] % (Auto) Lymph # [place] # Seg Neutrophils % Seg Neuts % (Manual) Lymphocytes % (Manual) Seg Neutrophils # Seg Neutrophils # Man Lymphocytes # (Manual) Monocytes # (Manual) POC ABG pH ABG pH POC ABG pCO2 POC ABG pO2 ABG pO2 ABG HCO3 ABG Base Excess ABG Hemoglobin Oxyhemoglobin Sodium Potassium Chloride Carbon Dioxide BUN Creatinine Glucose POC Glucose 130 H 122 H 136 H Calcium Phosphorus Magnesium Direct Bilirubin AST Alkaline Phosphatase C-Reactive Protein Serum Total Protein Total Protein Albumin Prealbumin Eoqau-1-Jkdehgoyv Aaaku-0-Vktxzbrbu Gamma Globulins PEP Interpretation Triglycerides Urine pH Urine Creatinine Urine Total Protein Vancomycin Trough Digoxin Crossmatch 11/20/19 11/20/19 11/20/19 17:17 Unknown Unknown WBC 17.8 H RBC 2.70 L Hgb 7.3 L Hct 22.5 L MCV 83 L MCH 27 L MCHC RDW 17.0 H Plt Count Lymph % (Auto) [place] % (Auto) Lymph # [place] # Seg Neutrophils % Seg Neuts % (Manual) Lymphocytes % (Manual) Seg Neutrophils # Seg Neutrophils # Man Lymphocytes # (Manual) Monocytes # (Manual) POC ABG pH ABG pH POC ABG pCO2 POC ABG pO2 ABG pO2 ABG HCO3 ABG Base Excess ABG Hemoglobin Oxyhemoglobin Sodium 132 L Potassium 3.5 L Chloride 95.4 L Carbon Dioxide 21 L BUN Creatinine 0.6 L Glucose 108 H POC Glucose 126 H Calcium Phosphorus Magnesium Direct Bilirubin AST Alkaline Phosphatase C-Reactive Protein Serum Total Protein Total Protein Albumin Prealbumin Gnhrw-0-Ibcxzuwgx Zfwss-5-Vpzwkoerh Gamma Globulins PEP Interpretation Triglycerides Urine pH Urine Creatinine Urine Total Protein Vancomycin Trough Digoxin Crossmatch 11/21/19 11/21/19 11/21/19 07:40 07:40 12:29 WBC 15.1 H RBC 2.61 L Hgb 7.0 L Hct 21.5 L MCV 82 L MCH 27 L MCHC RDW 17.0 H Plt Count Lymph % (Auto) 9.0 L [place] % (Auto) 7.7 H Lymph # [place] # 1.2 H Seg Neutrophils % 81.5 H Seg Neuts % (Manual) Lymphocytes % (Manual) Seg Neutrophils # 12.3 H Seg Neutrophils # Man Lymphocytes # (Manual) Monocytes # (Manual) POC ABG pH ABG pH POC ABG pCO2 POC ABG pO2 ABG pO2 ABG HCO3 ABG Base Excess ABG Hemoglobin Oxyhemoglobin Sodium Potassium Chloride Carbon Dioxide BUN Creatinine 0.5 L Glucose POC Glucose 118 H Calcium Phosphorus Magnesium Direct Bilirubin AST Alkaline Phosphatase C-Reactive Protein Serum Total Protein Total Protein Albumin Prealbumin Bjajm-8-Zlwkehdqj Icjnq-5-Ybwmlsvso Gamma Globulins PEP Interpretation Triglycerides Urine pH Urine Creatinine Urine Total Protein Vancomycin Trough Digoxin Crossmatch 11/21/19 11/22/19 11/23/19 13:32 08:13 11:48 WBC 13.7 H RBC 2.99 L Hgb 8.2 L Hct 24.7 L MCV 83 L MCH 27 L MCHC RDW 16.5 H Plt Count Lymph % (Auto) 7.8 L [place] % (Auto) 7.5 H Lymph # 1.1 L [place] # 1.0 H Seg Neutrophils % 83.3 H Seg Neuts % (Manual) Lymphocytes % (Manual) Seg Neutrophils # 11.4 H Seg Neutrophils # Man Lymphocytes # (Manual) Monocytes # (Manual) POC ABG pH ABG pH POC ABG pCO2 POC ABG pO2 ABG pO2 ABG HCO3 ABG Base Excess ABG Hemoglobin Oxyhemoglobin Sodium Potassium Chloride Carbon Dioxide BUN Creatinine Glucose POC Glucose 159 H Calcium Phosphorus Magnesium Direct Bilirubin AST Alkaline Phosphatase C-Reactive Protein Serum Total Protein Total Protein Albumin Prealbumin Tkkjp-1-Igmgpexqx Ctlpd-2-Qbvrzdqjw Gamma Globulins PEP Interpretation Triglycerides Urine pH Urine Creatinine Urine Total Protein Vancomycin Trough Digoxin Crossmatch See Detail 11/23/19 11/24/19 11/24/19 16:41 17:19 17:55 WBC 12.5 H RBC 2.94 L Hgb 8.0 L Hct 24.0 L MCV 82 L MCH 27 L MCHC RDW 16.4 H Plt Count Lymph % (Auto) [place] % (Auto) Lymph # [place] # Seg Neutrophils % Seg Neuts % (Manual) Lymphocytes % (Manual) Seg Neutrophils # Seg Neutrophils # Man Lymphocytes # (Manual) Monocytes # (Manual) POC ABG pH ABG pH POC ABG pCO2 POC ABG pO2 ABG pO2 ABG HCO3 ABG Base Excess ABG Hemoglobin Oxyhemoglobin Sodium Potassium Chloride Carbon Dioxide BUN Creatinine Glucose POC Glucose 131 H 127 H Calcium Phosphorus Magnesium Direct Bilirubin AST Alkaline Phosphatase C-Reactive Protein Serum Total Protein Total Protein Albumin Prealbumin Wddww-0-Rtlridumg Axusp-0-Vsfnftyat Gamma Globulins PEP Interpretation Triglycerides Urine pH Urine Creatinine Urine Total Protein Vancomycin Trough Digoxin Crossmatch 11/24/19 11/25/19 11/25/19 17:55 07:23 07:23 WBC 13.6 H RBC 3.03 L Hgb 8.2 L Hct 24.6 L MCV 81 L MCH 27 L MCHC RDW 16.8 H Plt Count 441 H Lymph % (Auto) 10.3 L [place] % (Auto) Lymph # [place] # 0.9 H Seg Neutrophils % 81.2 H Seg Neuts % (Manual) Lymphocytes % (Manual) Seg Neutrophils # 11.1 H Seg Neutrophils # Man Lymphocytes # (Manual) Monocytes # (Manual) POC ABG pH ABG pH POC ABG pCO2 POC ABG pO2 ABG pO2 ABG HCO3 ABG Base Excess ABG Hemoglobin Oxyhemoglobin Sodium 135 L Potassium 3.3 L 3.4 L Chloride 97.3 L 95.0 L Carbon Dioxide BUN 7 L 5 L Creatinine 0.5 L 0.4 L Glucose 107 H POC Glucose Calcium Phosphorus Magnesium Direct Bilirubin AST Alkaline Phosphatase C-Reactive Protein Serum Total Protein Total Protein Albumin Prealbumin Uzltm-8-Mxiwzgxrg Iydcp-4-Ewmejydnr Gamma Globulins PEP Interpretation Triglycerides Urine pH Urine Creatinine Urine Total Protein Vancomycin Trough Digoxin Crossmatch 11/25/19 11/26/19 11/26/19 16:58 11:35 17:46 WBC RBC Hgb Hct MCV MCH MCHC RDW Plt Count Lymph % (Auto) [place] % (Auto) Lymph # [place] # Seg Neutrophils % Seg Neuts % (Manual) Lymphocytes % (Manual) Seg Neutrophils # Seg Neutrophils # Man Lymphocytes # (Manual) Monocytes # (Manual) POC ABG pH ABG pH POC ABG pCO2 POC ABG pO2 ABG pO2 ABG HCO3 ABG Base Excess ABG Hemoglobin Oxyhemoglobin Sodium Potassium Chloride Carbon Dioxide BUN Creatinine Glucose POC Glucose 135 H 135 H 219 H Calcium Phosphorus Magnesium Direct Bilirubin AST Alkaline Phosphatase C-Reactive Protein Serum Total Protein Total Protein Albumin Prealbumin Nvyjk-7-Tnrbvcbsn Iyteu-6-Xbbauynff Gamma Globulins PEP Interpretation Triglycerides Urine pH Urine Creatinine Urine Total Protein Vancomycin Trough Digoxin Crossmatch 11/27/19 11/27/19 11/27/19 12:08 17:13 23:59 WBC RBC Hgb Hct MCV MCH MCHC RDW Plt Count Lymph % (Auto) [place] % (Auto) Lymph # [place] # Seg Neutrophils % Seg Neuts % (Manual) Lymphocytes % (Manual) Seg Neutrophils # Seg Neutrophils # Man Lymphocytes # (Manual) Monocytes # (Manual) POC ABG pH ABG pH POC ABG pCO2 POC ABG pO2 ABG pO2 ABG HCO3 ABG Base Excess ABG Hemoglobin Oxyhemoglobin Sodium Potassium Chloride Carbon Dioxide BUN Creatinine Glucose POC Glucose 186 H 137 H 194 H Calcium Phosphorus Magnesium Direct Bilirubin AST Alkaline Phosphatase C-Reactive Protein Serum Total Protein Total Protein Albumin Prealbumin Vyafk-6-Cmteyewfl Lozkv-9-Prrmayrrn Gamma Globulins PEP Interpretation Triglycerides Urine pH Urine Creatinine Urine Total Protein Vancomycin Trough Digoxin Crossmatch 11/28/19 11/28/19 11/28/19 05:30 05:30 06:14 WBC 15.1 H RBC 2.97 L Hgb 8.0 L Hct 24.4 L MCV 82 L MCH 27 L MCHC RDW 17.0 H Plt Count Lymph % (Auto) 9.9 L [place] % (Auto) Lymph # [place] # 1.0 H Seg Neutrophils % 82.7 H Seg Neuts % (Manual) Lymphocytes % (Manual) Seg Neutrophils # 12.5 H Seg Neutrophils # Man Lymphocytes # (Manual) Monocytes # (Manual) POC ABG pH ABG pH POC ABG pCO2 POC ABG pO2 ABG pO2 ABG HCO3 ABG Base Excess ABG Hemoglobin Oxyhemoglobin Sodium 136 L Potassium 3.1 L Chloride 96.3 L Carbon Dioxide BUN 6 L Creatinine 0.5 L Glucose POC Glucose 116 H Calcium Phosphorus Magnesium 1.60 L Direct Bilirubin AST Alkaline Phosphatase C-Reactive Protein Serum Total Protein Total Protein 6.2 L Albumin 2.2 L Prealbumin Jlxjr-8-Uryngabnm Mcfgp-4-Otkzsigsv Gamma Globulins PEP Interpretation Triglycerides Urine pH Urine Creatinine Urine Total Protein Vancomycin Trough Digoxin Crossmatch 11/28/19 11/28/19 11/29/19 08:40 17:05 07:38 WBC RBC Hgb Hct MCV MCH MCHC RDW Plt Count Lymph % (Auto) [place] % (Auto) Lymph # [place] # Seg Neutrophils % Seg Neuts % (Manual) Lymphocytes % (Manual) Seg Neutrophils # Seg Neutrophils # Man Lymphocytes # (Manual) Monocytes # (Manual) POC ABG pH ABG pH POC ABG pCO2 POC ABG pO2 ABG pO2 ABG HCO3 ABG Base Excess ABG Hemoglobin Oxyhemoglobin Sodium Potassium Chloride Carbon Dioxide BUN Creatinine Glucose POC Glucose 227 H 108 H 118 H Calcium Phosphorus Magnesium Direct Bilirubin AST Alkaline Phosphatase C-Reactive Protein Serum Total Protein Total Protein Albumin Prealbumin Gymsb-6-Duehivrig Wsuht-3-Jcteftzcb Gamma Globulins PEP Interpretation Triglycerides Urine pH Urine Creatinine Urine Total Protein Vancomycin Trough Digoxin Crossmatch 11/29/19 11/30/19 11/30/19 12:00 07:08 07:08 WBC 14.9 H RBC 3.11 L Hgb 8.4 L Hct 25.1 L MCV 81 L MCH 27 L MCHC RDW 17.3 H Plt Count 460 H Lymph % (Auto) 9.3 L [place] % (Auto) Lymph # [place] # 1.0 H Seg Neutrophils % 83.3 H Seg Neuts % (Manual) Lymphocytes % (Manual) Seg Neutrophils # 12.4 H Seg Neutrophils # Man Lymphocytes # (Manual) Monocytes # (Manual) POC ABG pH ABG pH POC ABG pCO2 POC ABG pO2 ABG pO2 ABG HCO3 ABG Base Excess ABG Hemoglobin Oxyhemoglobin Sodium 136 L Potassium 3.5 L Chloride 95.5 L Carbon Dioxide BUN 7 L Creatinine 0.5 L Glucose 74 L POC Glucose 193 H Calcium Phosphorus Magnesium Direct Bilirubin AST Alkaline Phosphatase 138 H C-Reactive Protein Serum Total Protein Total Protein Albumin 2.2 L Prealbumin Nyfhq-5-Aurdwnatv Zleba-7-Egvellymp Gamma Globulins PEP Interpretation Triglycerides Urine pH Urine Creatinine Urine Total Protein Vancomycin Trough Digoxin Crossmatch 12/01/19 12/01/19 12/01/19 05:53 05:53 12:35 WBC 11.6 H RBC 3.05 L Hgb 8.1 L Hct 24.8 L MCV 81 L MCH 27 L MCHC RDW 16.9 H Plt Count Lymph % (Auto) 12.4 L [place] % (Auto) 8.6 H Lymph # [place] # 1.0 H Seg Neutrophils % 78.5 H Seg Neuts % (Manual) Lymphocytes % (Manual) Seg Neutrophils # 9.1 H Seg Neutrophils # Man Lymphocytes # (Manual) Monocytes # (Manual) POC ABG pH ABG pH POC ABG pCO2 POC ABG pO2 ABG pO2 ABG HCO3 ABG Base Excess ABG Hemoglobin Oxyhemoglobin Sodium 135 L Potassium 3.4 L Chloride 97.3 L Carbon Dioxide BUN 7 L Creatinine 0.5 L Glucose POC Glucose 113 H Calcium Phosphorus Magnesium Direct Bilirubin AST Alkaline Phosphatase C-Reactive Protein Serum Total Protein Total Protein Albumin Prealbumin Qrxzh-8-Etpyyiazv Cnzjl-9-Uijzwhmsr Gamma Globulins PEP Interpretation Triglycerides Urine pH Urine Creatinine Urine Total Protein Vancomycin Trough Digoxin Crossmatch 12/02/19 12/02/19 11:56 16:50 WBC RBC Hgb Hct MCV MCH MCHC RDW Plt Count Lymph % (Auto) [place] % (Auto) Lymph # [place] # Seg Neutrophils % Seg Neuts % (Manual) Lymphocytes % (Manual) Seg Neutrophils # Seg Neutrophils # Man Lymphocytes # (Manual) Monocytes # (Manual) POC ABG pH ABG pH POC ABG pCO2 POC ABG pO2 ABG pO2 ABG HCO3 ABG Base Excess ABG Hemoglobin Oxyhemoglobin Sodium Potassium Chloride Carbon Dioxide BUN Creatinine Glucose POC Glucose 120 H 113 H Calcium Phosphorus Magnesium Direct Bilirubin AST Alkaline Phosphatase C-Reactive Protein Serum Total Protein Total Protein Albumin Prealbumin [id number]-Mslrhpmyt Ayipd-8-Rgwyvwzsm Gamma Globulins PEP Interpretation Triglycerides Urine pH Urine Creatinine Urine Total Protein Vancomycin Trough Digoxin Crossmatch Chest x-ray: report reviewed, image reviewed (clear lungs)
--- NOTE | 2019-12-03 18:54 | Progress Note ---
Assessment and Plan Assessment and plan: --Sacral Pressure Wound -wound care, frequent changing positions. possible surgical debredement on Tuesday per surgery --Left flank pain;resolved CT abdomen and pelvis reviewed --Sepsis, improved. Completed Abx per ID. Dehiscence of closure of fascia s/p ex lap with closure of abdominal wall and wound vac placement 10/05 ; s/p Re-exploration, washout, transection of colon, Abthera placement -10/13; s/p abd washout, partial omentectomy, partial colectomy with colostomy - 10/16. s/p abd washout, feeding tube placement, AbThera placement - 10/19; Abdominal washout and closure - 10/22. --Acute Respiratory failure with hypoxia, Extubated 10/25/19, Re-intubated 10/30 self extubated 11/04, now on Oxygen --Left pneumothorax s/p chest tube placed 10/30 Resolved. --Left lower lobe pneumonia: Completed treatment CTA chest showed left lower lobe consolidation with pleural effusion --COPD: Continue current management --GUILLERMO on CKD/ ATN due to sepsis/resolved --Acute blood loss anemia: s/p PRBCs. H&H currently stable. --Acute Toxic Metabolic Encephalopathy/Delirium Tremens. Resolved. --SVT, Atrial fib/flutter with RVR:rate controlled On oral amiodarone,metoprolol s/p adenosine.amiodarone,cardizem drip --Hx of Hypertension :Stable cont antihypertensives --Hyperlipidemia: Stable --Hx of LA/CAD -s/p PCI of the circumflex and second vessel POBA of the distal LAD occlusion. Left ventricle ejection fraction of 45-50%. 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 --Tobacco abuse:Cessation recommended --Morbid obesity with BMI of 43.4 now 32.0 weight reduction when stable --DVT and GI ppx: Lovenox/PPI --Disposition: Sacral wound debredement per surgery Awaiting acute rehabilitation placement History Interval history: Patient was scheduled for bedside debridement of sacral decubitus ulcer per surgery Patient is tired of staying in the hospital, wants to go home Awaiting acute rehab placement No new complaints Vital signs noted Hospitalist Physical - Constitutional Vitals: Temp Pulse Resp BP Pulse Ox 98.3 F 95 H 18 134/66 94 12/03/19 12:40 12/03/19 12:40 12/03/19 12:40 12/03/19 12:40 12/03/19 12:40 General appearance: Present: no acute distress, obese - EENT Eyes: Present: PERRL, EOM intact - Neck Neck: Present: supple, normal ROM - Respiratory Respiratory effort: normal Respiratory: bilateral: diminished, negative: rales, rhonchi, wheezing - Cardiovascular Rhythm: regular Heart Sounds: Present: S1 & S2 - Extremities Extremities: no ischemia, No edema - Abdominal General gastrointestinal: soft, non-tender, non-distended, other ( Ostomy functioning, midline drain, G-tube in place) - Integumentary Integumentary: Present: clear, warm - Psychiatric Psychiatric: appropriate mood/affect, depressed (And anxious) - Neurologic Neurologic: other (Residual weakness) KEATON score - Keaton Score Age > 65: (0) No Aspirin use within the Past 7 Days: (0) No 3 or more CAD Risk Factors: (1) Yes 2 or more Angina events in past 24 hrs: (1) Yes Known CAD with more than 50% Stenosis: (0) No Elevated Cardiac Markers: (0) No ST Deviation Greater than 0.5mm: (1) Yes KEATON Score: 3 Results - Labs CBC & Chem 7: 12/01/19 05:53 12/01/19 05:53 Labs: Laboratory Last Values WBC 11.6 K/mm3 (4.5-11.0) H 12/01/19 05:53 RBC 3.05 M/mm3 (3.65-5.03) L 12/01/19 05:53 Hgb 8.1 gm/dl (11.8-15.2) L 12/01/19 05:53 Hct 24.8 % (35.5-45.6) L 12/01/19 05:53 MCV 81 fl (84-94) L 12/01/19 05:53 MCH 27 pg (28-32) L 12/01/19 05:53 MCHC 33 % (32-34) 12/01/19 05:53 RDW 16.9 % (13.2-15.2) H 12/01/19 05:53 Plt Count 438 K/mm3 (140-440) 12/01/19 05:53 Lymph % (Auto) 12.4 % (13.4-35.0) L 12/01/19 05:53 [place] % (Auto) 8.6 % (0.0-7.3) H 12/01/19 05:53 Eos % (Auto) 0.3 % (0.0-4.3) 12/01/19 05:53 Baso % (Auto) 0.2 % (0.0-1.8) 12/01/19 05:53 Lymph # 1.4 K/mm3 (1.2-5.4) 12/01/19 05:53 [place] # 1.0 K/mm3 (0.0-0.8) H 12/01/19 05:53 Eos # 0.0 K/mm3 (0.0-0.4) 12/01/19 05:53 Baso # 0.0 K/mm3 (0.0-0.1) 12/01/19 05:53 Add Manual Diff Complete 10/16/19 09:20 Total Counted 100 10/16/19 09:20 Seg Neutrophils % 78.5 % (40.0-70.0) H 12/01/19 05:53 Seg Neuts % (Manual) 79.0 % (40.0-70.0) H 10/16/19 09:20 Band Neutrophils % 12.0 % 10/16/19 09:20 Lymphocytes % (Manual) 4.0 % (13.4-35.0) L 10/16/19 09:20 Reactive Lymphs % (Man) 0 % 10/16/19 09:20 Monocytes % (Manual) 2.0 % (0.0-7.3) 10/16/19 09:20 Eosinophils % (Manual) 0 % (0.0-4.3) 10/16/19 09:20 Basophils % (Manual) 0 % (0.0-1.8) 10/16/19 09:20 Metamyelocytes % 2.0 % 10/16/19 09:20 Myelocytes % 1.0 % 10/16/19 09:20 Promyelocytes % 0 % 10/16/19 09:20 Blast Cells % 0 % 10/16/19 09:20 Nucleated RBC % Not Reportable 10/16/19 09:20 Seg Neutrophils # 9.1 K/mm3 (1.8-7.7) H 12/01/19 05:53 Seg Neutrophils # Man 11.5 K/mm3 (1.8-7.7) H 10/16/19 09:20 Band Neutrophils # 1.8 K/mm3 10/16/19 09:20 Lymphocytes # (Manual) 0.6 K/mm3 (1.2-5.4) L 10/16/19 09:20 Abs React Lymphs (Man) 0.0 K/mm3 10/16/19 09:20 Monocytes # (Manual) 0.3 K/mm3 (0.0-0.8) 10/16/19 09:20 Eosinophils # (Manual) 0.0 K/mm3 (0.0-0.4) 10/16/19 09:20 Basophils # (Manual) 0.0 K/mm3 (0.0-0.1) 10/16/19 09:20 Metamyelocytes # 0.3 K/mm3 10/16/19 09:20 Myelocytes # 0.1 K/mm3 10/16/19 09:20 Promyelocytes # 0.0 K/mm3 10/16/19 09:20 Blast Cells # 0.0 K/mm3 10/16/19 09:20 WBC Morphology Not Reportable 10/16/19 09:20 Hypersegmented Neuts Not Reportable 10/16/19 09:20 Hyposegmented Neuts Not Reportable 10/16/19 09:20 Hypogranular Neuts Not Reportable 10/16/19 09:20 Smudge Cells Not Reportable 10/16/19 09:20 Toxic Granulation Not Reportable 10/16/19 09:20 Toxic Vacuolation Not Reportable 10/16/19 09:20 Dohle Bodies Not Reportable 10/16/19 09:20 Pelger-Huet Anomaly Not Reportable 10/16/19 09:20 Andres Rods Not Reportable 10/16/19 09:20 Platelet Estimate Consistent w auto 10/16/19 09:20 Clumped Platelets Not Reportable 10/16/19 09:20 Plt Clumps, EDTA Not Reportable 10/16/19 09:20 Large Platelets Not Reportable 10/16/19 09:20 Giant Platelets Not Reportable 10/16/19 09:20 Platelet Satelliting Not Reportable 10/16/19 09:20 Plt Morphology Comment Not Reportable 10/16/19 09:20 RBC Morphology Not Reportable 10/16/19 09:20 Dimorphic RBCs Not Reportable 10/16/19 09:20 Polychromasia Few 10/16/19 09:20 Hypochromasia Few 10/16/19 09:20 Poikilocytosis Not Reportable 10/16/19 09:20 Anisocytosis Not Reportable 10/16/19 09:20 Microcytosis Not Reportable 10/16/19 09:20 Macrocytosis Not Reportable 10/16/19 09:20 Spherocytes Not Reportable 10/16/19 09:20 Pappenheimer Bodies Not Reportable 10/16/19 09:20 Sickle Cells Not Reportable 10/16/19 09:20 Target Cells Few 10/16/19 09:20 Tear Drop Cells Not Reportable 10/16/19 09:20 Ovalocytes Not Reportable 10/16/19 09:20 Helmet Cells Not Reportable 10/16/19 09:20 [place] Bodies Not Reportable 10/16/19 09:20 [place] Rings Not Reportable 10/16/19 09:20 [place] Cells Not Reportable 10/16/19 09:20 Bite Cells Not Reportable 10/16/19 09:20 Crenated Cell Not Reportable 10/16/19 09:20 Elliptocytes Not Reportable 10/16/19 09:20 Acanthocytes (Spur) Not Reportable 10/16/19 09:20 Rouleaux Not Reportable 10/16/19 09:20 Hemoglobin C Crystals Not Reportable 10/16/19 09:20 Schistocytes Not Reportable 10/16/19 09:20 Malaria parasites Not Reportable 10/16/19 09:20 Toni Bodies Not Reportable 10/16/19 09:20 Hem Pathologist Commnt No 10/16/19 09:20 POC ABG pH 7.422 (7.35-7.45) 11/03/19 04:28 ABG pH 7.390 pH Units (7.350-7.450) 10/23/19 04:47 POC ABG pCO2 45.4 (35-45) H 11/03/19 04:28 ABG pCO2 48.4 mm Hg 10/23/19 04:47 POC ABG pO2 83 (80-105) 11/03/19 04:28 ABG pO2 68.9 mm Hg (80.0-90.0) L 10/23/19 04:47 POC ABG HCO3 29.6 (22-26 mml/L) 11/03/19 04:28 ABG HCO3 28.7 mmol/L (20.0-26.0) H 10/23/19 04:47 POC ABG Total CO2 31 (23-27mmol/L) 11/03/19 04:28 POC ABG O2 Sat 96 11/03/19 04:28 ABG O2 Saturation 96.6 % (95.0-99.0) 10/23/19 04:47 ABG O2 Content 8.8 (0.0-44) 10/23/19 04:47 POC ABG Base Excess 5 ((-2) - (+3)mmol/L) 11/03/19 04:28 ABG Base Excess 3.4 mmol/L (-2.0-3.0) H 10/23/19 04:47 ABG Hemoglobin 6.6 gm/dl (14.0-18.0) L 10/23/19 04:47 ABG Carboxyhemoglobin 2.1 % (0.0-5.0) 10/23/19 04:47 ABG Methemoglobin 0.5 % (0.0-1.5) 10/23/19 04:47 Oxyhemoglobin 94.1 % (95.0-99.0) L 10/23/19 04:47 FiO2 40 % 11/03/19 04:28 Sodium 135 mmol/L (137-145) L 12/01/19 05:53 Potassium 3.4 mmol/L (3.6-5.0) L 12/01/19 05:53 Chloride 97.3 mmol/L (98-107) L 12/01/19 05:53 Carbon Dioxide 24 mmol/L (22-30) 12/01/19 05:53 Anion Gap 17 mmol/L 12/01/19 05:53 BUN 7 mg/dL (9-20) L 12/01/19 05:53 Creatinine 0.5 mg/dL (0.8-1.5) L 12/01/19 05:53 Estimated GFR > 60 ml/min 12/01/19 05:53 BUN/Creatinine Ratio 14 % 12/01/19 05:53 Glucose 87 mg/dL (75-100) 12/01/19 05:53 POC Glucose 83 (70-105) 12/03/19 05:44 Hemoglobin A1c 5.7 % (4-6) 10/06/19 05:36 Lactic Acid 1.10 mmol/L (0.7-2.0) 10/13/19 04:20 Calcium 8.6 mg/dL (8.4-10.2) 12/01/19 05:53 Ionized Calcium 5.2 mg/dL (4.8-5.6) 10/18/19 07:41 Phosphorus 4.40 mg/dL (2.5-4.5) 12/01/19 05:53 Magnesium 1.70 mg/dL (1.7-2.3) 12/01/19 05:53 Total Bilirubin 0.40 mg/dL (0.1-1.2) 11/30/19 07:08 Direct Bilirubin 0.7 mg/dL (0-0.2) H 10/23/19 10:44 Indirect Bilirubin 0.1 mg/dL 10/23/19 10:44 AST 12 units/L (5-40) 11/30/19 07:08 ALT 9 units/L (7-56) 11/30/19 07:08 Alkaline Phosphatase 138 units/L (35-129) H 11/30/19 07:08 Ammonia 49.0 umol/L (25-60) 10/13/19 04:20 Troponin T < 0.010 ng/mL (0.00-0.029) 10/09/19 17:23 C-Reactive Protein 30.60 mg/dL (0.00-1.30) H 10/15/19 04:32 Serum Total Protein 5.2 g/dL (6.1-8.1) L 10/11/19 09:00 Total Protein 6.6 g/dL (6.3-8.2) 11/30/19 07:08 Albumin 2.2 g/dL (3.9-5) L 11/30/19 07:08 Albumin/Globulin Ratio 0.5 % 11/30/19 07:08 Prealbumin 0.030 g/L (0.200-0.400) L 10/15/19 04:32 [id number] See scanned result 10/11/19 Unknown [id number] See scanned result 10/11/19 Unknown Beta Globulins See scanned result 10/11/19 Unknown Gamma Globulins See scanned result 10/11/19 Unknown Abnorm Protein Band 1 see below 10/11/19 09:00 PEP Interpretation See scanned result 10/11/19 Unknown Triglycerides 185 mg/dL (2-149) H 10/26/19 06:15 Urine Color Yellow (Yellow) 10/26/19 Unknown Urine Turbidity Clear (Clear) 10/26/19 Unknown Urine pH 9.0 (5.0-7.0) H 10/26/19 Unknown Ur Specific [place] 1.011 (1.003-1.030) 10/26/19 Unknown Urine Protein 30 mg/dl mg/dL (Negative) 10/26/19 Unknown Urine Glucose (UA) Neg mg/dL (Negative) 10/26/19 Unknown Urine Ketones Neg mg/dL (Negative) 10/26/19 Unknown Urine Blood Neg (Negative) 10/26/19 Unknown Urine Nitrite Neg (Negative) 10/26/19 Unknown Urine Bilirubin Neg (Negative) 10/26/19 Unknown Urine Urobilinogen < 2.0 mg/dL (<2.0) 10/26/19 Unknown Ur Leukocyte Esterase Neg (Negative) 10/26/19 Unknown Urine WBC (Auto) 1.0 /HPF (0.0-6.0) 10/26/19 Unknown Urine RBC (Auto) 1.0 /HPF (0.0-6.0) 10/26/19 Unknown Urine Bacteria (Auto) 1+ /HPF (Negative) 10/11/19 06:23 Urine Mucus Few /HPF 10/26/19 Unknown Urine Eosinophils None seen (None Seen) 10/11/19 06:23 Ur Random Creatinine See scanned result 10/11/19 Unknown U Random Total Protein See scanned result 10/11/19 Unknown Urine Creatinine 116.8 mg/dL (0.1-20.0) H 10/11/19 06:23 Urine Creatinine 118.2 mg/dL (0.1-20.0) H 10/11/19 06:23 Protein/Creatinin Ratio See scanned result 10/11/19 Unknown Urine Sodium 14 mmol/L 10/11/19 06:23 Urine Total Protein 104 mg/dL (5-11.8) H 10/11/19 06:23 Urine Total Protein 105 mg/dL (5-11.8) H 10/11/19 06:23 U Abnormal Prot Band 1 See scanned result 10/11/19 Unknown U Abnormal Prot Band 2 See scanned result 10/11/19 Unknown U Abnormal Prot Band 3 See scanned result 10/11/19 Unknown Vancomycin Trough 5.7 ug/mL (5.0-20.0) 11/05/19 09:00 Random Vancomycin 9.6 ug/mL (0-40.0) 11/03/19 03:42 Digoxin 0.7 ng/mL (0.9-2.0) L 10/19/19 04:21 Blood Type A POSITIVE 11/21/19 13:32 Antibody Screen Negative 11/21/19 13:32 Crossmatch See Detail 11/21/19 13:32 Active Medications - Current Medications Current Medications: Generic Name Dose Route Start Last Admin Trade Name Freq PRN Reason Stop Dose Admin Acetaminophen 650 mg 12/03/19 12:57 12/03/19 13:00 Tylenol PO 650 mg Q6H PRN Administration Pain, Mild (1-3) Acetaminophen/Hydrocodone Bitart 1 each 11/24/19 12:27 12/03/19 17:29 [place] 10/325 PO 1 each Q6H PRN Administration Pain, Moderate (4-6) Albuterol/Ipratropium 1 ampul 11/23/19 08:00 12/03/19 17:41 Duoneb *Not For Prn Use* IH Not Given TIDRT VERÓNICA Amiodarone HCl 200 mg 10/23/19 13:00 12/03/19 09:32 Cordarone PO 200 mg QDAY VERÓNICA Administration Arformoterol Tartrate 15 mcg 10/06/19 08:30 12/03/19 11:03 Brovana Nebu IH 15 mcg Q12HRT VERÓNICA Administration Budesonide 0.5 mg 10/07/19 12:20 12/03/19 11:04 Pulmicort IH 0.5 mg Q12HRT VERÓNICA Administration Citalopram Hydrobromide 20 mg 10/27/19 12:00 12/03/19 09:32 Celexa PO 20 mg DAILY VERÓNICA Administration Diphenhydramine HCl 25 mg 11/17/19 20:15 12/03/19 01:38 Benadryl PO 25 mg Q6H PRN Administration Itching Enoxaparin Sodium 40 mg 11/05/19 22:00 12/02/19 21:42 Enoxaparin SUB-Q 40 mg QDAY@2200 VERÓNICA Administration Haloperidol Lactate 5 mg 10/25/19 18:22 11/12/19 03:33 Haldol IV 5 mg Q6H PRN Administration Agitation Hydralazine HCl 10 mg 10/28/19 14:09 11/02/19 15:34 Apresoline IV 10 mg Q4HR PRN Administration Hypertension Hydromorphone HCl 1 mg 11/24/19 12:28 12/01/19 18:28 Dilaudid IV 1 mg Q4H PRN Administration Pain , Severe (7-10) Insulin Human Lispro 0 unit 10/14/19 12:00 12/03/19 17:59 Humalog SUB-Q Not Given Q6HR [facility] Protocol Metoprolol Tartrate 2.5 mg 10/15/19 15:34 11/01/19 18:00 Metoprolol IV 2.5 mg Q4HR PRN Administration HR >130 Metoprolol Tartrate 12.5 mg 11/21/19 16:00 12/03/19 13:43 Metoprolol PO 12.5 mg Q8HR VERÓNICA Administration Multi-Ingred Cream/Lotion/Oil/Oint 1 applic 10/14/19 02:19 Artificial Tears Ophth Oint OU Q4HR PRN Dry Eye(s) Pantoprazole Sodium 40 mg 11/20/19 10:00 12/03/19 09:32 Protonix PO 40 mg DAILY VERÓNICA Administration Sodium Chloride 10 ml 11/07/19 19:32 11/28/19 21:23 Sodium Chloride Flush Syringe 10 Ml IV 10 ml PRN PRN Administration LINE FLUSH Zolpidem Tartrate 5 mg 11/10/19 21:00 11/11/19 03:30 Ambien FEEDTUBE 5 mg QHS PRN Administration Sleep Nutrition/Malnutrition Assess - Dietary Evaluation Nutrition/Malnutrition Findings: Nutrition Notes Start: 10/08/19 11:36 Freq: Status: Active Protocol: Document 11/29/19 12:26 JENN (Rec: 11/29/19 12:47 JENN [id number]) Co-Sign 11/29/19 12:26 LP Nutrition Notes Initial or Follow up Reassessment Current Diagnosis Acute Kidney Injury,COPD, Hypertension Other Pertinent Diagnosis intra-abdominal infection, disruption of bowel anastomosis, LE edema Current Diet Regular Labs/Tests Na 136 K 3.1 BUN 6 Cr 0.5 Pertinent Medications Reviewed Height 6 ft Weight 103.2 kg [place] Body Weight (kg) 80.90 BMI 30.8 Weight change and time frame Wt change noted from current scale Weight Status Morbidly Obese Subjective/Other Information F/U for PO intakes. Pt stated his appetite has been good, but doesn't like the food and has outside food brought in. Pt ate about 75% of breakfast Percent of energy/protein needs met: unable to determine Burn Absent Trauma Absent GI Symptoms None Current % PO Good (75-100%) Minimum of two criteria No Fluid Accumulation Mild (non-severe) #1 Nutrition Diagnosis Increased nutrient needs ( specify in comment below) Diagnosis Progress(for reassessment Continues documentation) Is patient on ventilator? No Is Patient Ambulatory and/or Out of Bed No REE-([facility]-confined to bed) 2284.140 Kcal/Kg value to use for calculation 19 Approximate Energy Requirements Using 1961 kcal/Kg Calculation Used for Recommendations Kcal/kg Additional Notes Protein: 136-169g (1.2-1.5g/kg ) AdjBW 113kg Fluid 1 ml/kcal or per MD Nutrition Intervention Change Diet Order: Continue regular Goal #1 Meet at least 80% of energy and protein needs via PO intakes Anticipated Discharge Needs: Regular diet Follow-Up By: 12/06/19 Additional Comments F/U for PO intakes
[2019-12-03] MEDS ORDERED: INSULIN GLARGINE 100 UNITS/ML SUB-Q SCH (22:00)
[2019-12-03] MEDS: ENOXAPARIN 40 MG/0.4 ML INJ SUB-Q SCH (22:55)
[2019-12-04] MEDS: INSULIN LISPRO 100 UNIT/ML SUB-Q SCH ×4 (00:13→20:26)
[2019-12-04] MEDS: METOPROLOL TARTRATE 50 MG TAB PO SCH ×3 (08:16→22:09)
[2019-12-04] MEDS: BUDESONIDE 0.5 MG/2 ML NEBU IH SCH ×2 (08:34→20:11)
[2019-12-04] MEDS: IPRATROPIUM/ALBUTEROL SULFATE 3 ML AMPUL.NEB IH SCH ×3 (08:34→20:11)
[2019-12-04] MEDS: ARFORMOTEROL 15 MCG/2 ML NEBU IH SCH ×2 (08:34→20:11)
--- NOTE | 2019-12-04 09:23 | Progress Note ---
Assessment and Plan /Dehiscence of closure of fascia s/p ex lap with closure of abdominal wall and wound vac placement 10/05 ; s/p Re-exploration, washout, transection of colon, Abthera placement -10/13; s/p abd washout, partial omentectomy, partial colectomy with colostomy - 10/16. s/p abd washout, feeding tube placement, AbThera placement - 10/19; Abdominal washout and closure - 10/22. /-Sacral Pressure Wound -wound care, frequent changing positions. s/p surgical debridement on Tuesday per surgery, 2nd debridement today /-Left flank pain; resolved CT abdomen and pelvis reviewed --Sepsis, improved. Completed Abx per ID. /-Acute Respiratory failure with hypoxia required intubation for surgery on 10/13/19, Extubated 10/25/19, Re-intubated 10/30 self extubated 11/04, now on Oxygen /-Left pneumothorax s/p chest tube placed 10/30 Resolved. /-Left lower lobe pneumonia: Completed treatment CTA chest showed left lower lobe consolidation with pleural effusion /-COPD: Continue current management /-GUILLERMO on CKD/ ATN due to sepsis/resolved /-Acute blood loss anemia: s/p PRBCs. H&H currently stable. /Acute Toxic Metabolic Encephalopathy/Delirium Tremens. Resolved. /-SVT, Atrial fib/flutter with RVR:rate controlled On oral amiodarone, metoprolol s/p adenosine, amiodarone and cardizem drip /-Hx of Hypertension :Stable cont antihypertensives /-Hyperlipidemia: Stable /-Hx of ND/CAD with PCI of the circumflex and second vessel POBA of the distal LAD occlusion on 2017. Left ventricle ejection fraction of 45-50%. 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 On admission, it was reported that a portion of his intestines protruded through his wound after severe cough. He has had multiple surgeries since admission. Subjective Date of service: 12/04/19 Principal diagnosis: acute renal failure Interval history: patient seen and examined getting bedside debridement today no other acute issue Objective - Exam Narrative Exam: General appearance: Present: no acute distress, obese - EENT Eyes: Present: PERRL, EOM intact - Neck Neck: Present: supple, normal ROM - Respiratory Respiratory effort: normal Respiratory: bilateral: diminished, negative: rales, rhonchi, wheezing - Cardiovascular Rhythm: regular Heart Sounds: Present: S1 & S2 - Extremities Extremities: no ischemia, No edema - Abdominal General gastrointestinal: soft, non-tender, non-distended, other (Ostomy functioning, midline drain, G-tube in place) - Integumentary Integumentary: Present: clear, warm - Psychiatric Psychiatric: (anxious) - Neurologic Neurologic: other (Residual weakness) - Constitutional Vitals: Vital Signs - 12hr 12/03/19 12/04/19 12/04/19 21:26 04:42 08:16 Temperature 98.6 F Pulse Rate 77 Pulse Rate [ 75 Anterior Bilateral Throughout] Respiratory 18 Rate Respiratory 16 Rate [Anterior Bilateral Throughout] Blood Pressure 103/50 99/50 12/04/19 08:40 Temperature Pulse Rate Pulse Rate [ 88 Anterior Bilateral Throughout] Respiratory Rate Respiratory 18 Rate [Anterior Bilateral Throughout] Blood Pressure - Labs CBC & Chem 7: 12/05/19 10:08 12/04/19 12:20 Labs: Abnormal lab results 12/03/19 12/03/19 12/04/19 Range/Units 13:27 18:22 00:56 POC Glucose 158 H 112 H 61 L (70-105)
[2019-12-04] MEDS: CITALOPRAM 20 MG TAB PO SCH (11:03)
[2019-12-04] MEDS: PANTOPRAZOLE 40 MG TAB PO SCH (11:03)
[2019-12-04] MEDS: AMIODARONE 200 MG TAB PO SCH (12:23)
[2019-12-04] MEDS: HYDROmorphone 2 MG/1 ML INJ IV PRN ×2 (13:03→22:19)
--- NOTE | 2019-12-04 13:16 | Progress Note ---
Assessment and Plan - Patient Problems (1) Dehiscence of closure of fascia, superficial or muscular Current Visit: No Status: Acute Qualifiers: Encounter type: initial encounter Qualified Code(s): T81.32XA - Disruption of internal operation (surgical) wound, not elsewhere classified, initial encounter Plan to address problem: Pt stable. s/p ex lap with closure of abdominal wall and wound vac placement (10/05); s/p Re-exploration, washout, transection of colon, Abthera placement - 10/13; s/p abd washout, partial omentectomy, partial colectomy with colostomy - 10/16; s/p abd washout, feeding tube placement, AbThera placement - 10/19; Abdominal washout and closure - 10/22 Patient appears stable. Rec: 1) Neuro - self-extubated 11/04. 2) CV - BP normal today. Appreciate hospitalist help with transfusion and adjustment BP meds. 3) Resp - On NC. Small bore CT on left - removed 11/02. 4) GI - Ostomy looks good. Functioning. Last CT done recently showed main drain to be in good position. Expect to see air in main fluid collection as catheter is open to air and is being flushed periodically to keep open. Midline drain - seems to be working well. ordered to be flushed daily. Wound Managed Care Provider - wound looked good on last check. Need to keep catheter in wound to stent open the drainage point. Ostomy - functioning. Gastric Port - May be used as needed for feeds or meds. Will most likely remove when he is scheduled to be transferred to acute rehab. 5) - BUN/Cr stable. 6) ID - Abx per ID. None at this time. 7) Nutrition - Oral nutrition. Passed Speech Eval. 8) DVT prophylaxis - SCDs. Lovenox 9) Family - at bedside briefly 10) PT - will need rehab. 11) Sacral Pressure Wound - Debrided at bedside today with aid of wound care nurse. Cultures taken. Will begin wound care with Dakin's dressing changes. Hope to transition to wound vac next week. 11) Dispo - Ok for transfer to rehab from my perspective. Await Rehab decision on acceptance. Note: Spoke with [facility] surgeon on 11/01/19 about possible transfer. They reviewed the notes that were sent and we discussed the case. They felt that they had nothing else to offer. They agreed with our management. Also agreed that another exploration should not be done. If needed, additional drains can be placed. They did suggest putting a [place] tube in the rectum to decompress that area. (That has been done). This conversation was communicated to the . Please call with questions. Subjective Date of service: 12/04/19 Patient Reports: Positive: no new complaints, still having pain (in hips) Objective Vital Signs - 12hr 12/04/19 12/04/19 12/04/19 04:42 08:16 08:40 Temperature 98.6 F Pulse Rate 77 Pulse Rate [ 88 Anterior Bilateral Throughout] Respiratory 18 Rate Respiratory 18 Rate [Anterior Bilateral Throughout] Blood Pressure 103/50 99/50 - General physical appearance no distress, no pain, obese, other (in good spirits) - Eyes normal occular movement - Respiratory normal expansion, normal respiratory effort - Abdomen soft, not distended, other (wound manager test in place) - Integumentary other (sacral wound with purulent and fibrinous exudate. Reactive erythema around opening of the wound. ) - Psychiatric oriented to time, oriented to person, oriented to place, speech is normal, memory intact - Labs 12/04/19 12:20 12/01/19 05:53
[2019-12-04 13:24] LABS: Hematocrit 21.9 % (35.5-45.6); Hemoglobin 7.1 gm/dl (11.8-15.2); Mean Corpuscular HGB Conc 32 % (32-34); Mean Corpuscular Volume 82 fl (84-94); Platelet Count 437 K/mm3 (140-440); Red Blood Count 2.68 M/mm3 (3.65-5.03); Red Cell Distribution Width 17.8 % (13.2-15.2)
--- NOTE | 2019-12-04 13:39 | Procedure Note ---
Date of procedure: 12/04/19 Pre-op diagnosis: sacral decubitus ulcer Post-op diagnosis: same Procedure: Debridement of decubitus ulcer. sharp debridement done down to fascia level. See wound care note for exact measurements Findings: full thickness wound down to sacral fascia.does not appear to be involving fascia at this time. Anesthesia: other (IV pain meds) Surgeon: ANKITA GAO Estimated blood loss: minimal Pathology: list (culture swabs) Specimen disposition: to lab Condition: stable Disposition: floor
[2019-12-04 13:50] LABS: BUN/Creatinine Ratio 13; Blood Urea Nitrogen 8 mg/dL (9-20); Calcium 8.4 mg/dL (8.4-10.2); Hemolysis Index 1
--- NOTE | 2019-12-04 15:45 | Progress Note ---
Assessment and Plan Imp: 1. Colon perforation/peritonitis/anastamotic leak s/p multiple surgeries 2. Sepsis 3. Acute respiratory failure, hypoxia 4. Obesity 5. KALI 6. Centrilobular emphysema, severe 7. Chronic nicotine dependence, cigarettes 8. HTN 9. CAD s/p PCI 10. Ischemic cardiomyopathy 11. PTX on L Rec: 1. Finished ABX 2. Off O2 3. Cont. current nebs 4. Optimize nutrition 5. DVT PPx 6. Stop smoking 7. Stable for placement pulm-devries Plan of care reviewed with patient, he understands/agrees Subjective Date of service: 12/04/19 Principal diagnosis: acute renal failure Interval history: Bedside sacral decubitus debridement done. On RA. No SOB, chest pain, cough. Alert, appropriate. Active Medications Acetaminophen (Tylenol) 650 mg PO Q6H PRN PRN Reason: Pain, Mild (1-3) Last Admin: 12/03/19 13:00 Dose: 650 mg Documented by: Acetaminophen/Hydrocodone Bitart ([place] 10/325) 1 each PO Q6H PRN PRN Reason: Pain, Moderate (4-6) Last Admin: 12/03/19 23:02 Dose: 1 each Documented by: Albuterol/Ipratropium (Duoneb *Not For Prn Use*) 1 ampul [facility] TIDRT [facility] Last Admin: 12/04/19 14:54 Dose: 1 ampul Documented by: Amiodarone HCl (Cordarone) 200 mg PO QDAY [facility] Last Admin: 12/04/19 12:23 Dose: 200 mg Documented by: Arformoterol Tartrate (Brovana Nebu) 15 mcg IH Q12HRT [facility] Last Admin: 12/04/19 08:34 Dose: 15 mcg Documented by: Budesonide (Pulmicort) 0.5 mg IH Q12HRT [facility] Last Admin: 12/04/19 08:34 Dose: 0.5 mg Documented by: Citalopram Hydrobromide (Celexa) 20 mg PO DAILY [facility] Last Admin: 12/04/19 11:03 Dose: 20 mg Documented by: Diphenhydramine HCl (Benadryl) 25 mg PO Q6H PRN PRN Reason: Itching Last Admin: 12/03/19 01:38 Dose: 25 mg Documented by: Enoxaparin Sodium (Enoxaparin) 40 mg SUB-Q QDAY@2200 [facility] Last Admin: 12/03/19 22:55 Dose: 40 mg Documented by: Haloperidol Lactate (Haldol) 5 mg IV Q6H PRN PRN Reason: Agitation Last Admin: 11/12/19 03:33 Dose: 5 mg Documented by: Hydralazine HCl (Apresoline) 10 mg IV Q4HR PRN PRN Reason: Hypertension Last Admin: 11/02/19 15:34 Dose: 10 mg Documented by: Hydromorphone HCl (Dilaudid) 1 mg IV Q4H PRN PRN Reason: Pain , Severe (7-10) Last Admin: 12/04/19 13:03 Dose: 1 mg Documented by: Insulin Human Lispro (Humalog) 0 unit SUB-Q Q6HR [facility]; Protocol Last Admin: 12/04/19 12:24 Dose: Not Given Documented by: Metoprolol Tartrate (Metoprolol) 2.5 mg IV Q4HR PRN PRN Reason: HR >130 Last Admin: 11/01/19 18:00 Dose: 2.5 mg Documented by: Metoprolol Tartrate (Metoprolol) 12.5 mg PO Q8HR [facility] Last Admin: 12/04/19 08:16 Dose: Not Given Documented by: Multi-Ingred Cream/Lotion/Oil/Oint (Artificial Tears Ophth Oint) 1 applic OU Q4HR PRN PRN Reason: Dry Eye(s) Pantoprazole Sodium (Protonix) 40 mg PO DAILY [facility] Last Admin: 12/04/19 11:03 Dose: 40 mg Documented by: Sodium Chloride (Sodium Chloride Flush Syringe 10 Ml) 10 ml IV PRN PRN PRN Reason: LINE FLUSH Last Admin: 11/28/19 21:23 Dose: 10 ml Documented by: Sodium Hypochlorite (Dakin's Half Strength) 1 applic TP Q12H PRN PRN Reason: Wound Care Zolpidem Tartrate (Ambien) 5 mg FEEDTUBE QHS PRN PRN Reason: Sleep Last Admin: 11/11/19 03:30 Dose: 5 mg Documented by: Objective Vital Signs - 12hr 12/04/19 12/04/19 12/04/19 04:42 08:16 08:40 Temperature 98.6 F Pulse Rate 77 Pulse Rate [ 88 Anterior Bilateral Throughout] Respiratory 18 Rate Respiratory 18 Rate [Anterior Bilateral Throughout] Blood Pressure 103/50 99/50 O2 Sat by Pulse Oximetry 12/04/19 12/04/19 12:31 14:55 Temperature 98.4 F Pulse Rate 86 Pulse Rate [ 95 H Anterior Bilateral Throughout] Respiratory 18 Rate Respiratory 18 Rate [Anterior Bilateral Throughout] Blood Pressure 114/58 O2 Sat by Pulse 93 Oximetry Constitutional: no acute distress, alert Eyes: non-icteric ENT: oropharynx moist Neck: supple Effort: normal Ascultation: Bilateral: clear Cardiovascular: regular rate and rhythm (no mrg) Gastrointestinal: tender, other (obese, distended, ostomy in place) Extremities: no cyanosis, pink and warm, edema (1+ bilateral LE edema) Neurologic: normal mental status, non-focal exam, pupils equal and round Psychiatric: mood appropriate, affect normal CBC and BMP: 12/04/19 12:20 12/04/19 12:20 ABG, PT/INR, D-dimer: ABG POC ABG pH 7.422 (7.35-7.45) 11/03/19 04:28 ABG pH 7.390 pH Units (7.350-7.450) 10/23/19 04:47 POC ABG pCO2 45.4 (35-45) H 11/03/19 04:28 ABG pCO2 48.4 mm Hg 10/23/19 04:47 POC ABG pO2 83 (80-105) 11/03/19 04:28 ABG pO2 68.9 mm Hg (80.0-90.0) L 10/23/19 04:47 POC ABG HCO3 29.6 (22-26 mml/L) 11/03/19 04:28 POC ABG Total CO2 31 (23-27mmol/L) 11/03/19 04:28 POC ABG O2 Sat 96 11/03/19 04:28 ABG O2 Saturation 96.6 % (95.0-99.0) 10/23/19 04:47 Abnormal lab findings: Abnormal Labs 10/06/19 10/06/19 10/07/19 05:36 05:36 05:54 WBC 21.8 H 21.5 H RBC 3.55 L Hgb 10.9 L Hct 32.7 L MCV MCH MCHC RDW Plt Count Lymph % (Auto) Emmons % (Auto) Lymph # Emmons # Seg Neutrophils % Seg Neuts % (Manual) 91.0 H Lymphocytes % (Manual) 2.0 L Seg Neutrophils # Seg Neutrophils # Man 19.8 H Lymphocytes # (Manual) 0.4 L Monocytes # (Manual) 1.1 H POC ABG pH ABG pH POC ABG pCO2 POC ABG pO2 ABG pO2 ABG HCO3 ABG Base Excess ABG Hemoglobin Oxyhemoglobin Sodium 135 L Potassium Chloride 95.9 L Carbon Dioxide BUN Creatinine 0.7 L Glucose POC Glucose Calcium Phosphorus Magnesium Direct Bilirubin AST Alkaline Phosphatase C-Reactive Protein Serum Total Protein Total Protein 5.7 L Albumin 2.5 L Prealbumin Fkfrn-0-Atxolietr Mtqtu-4-Uhyfoeyof Gamma Globulins PEP Interpretation Triglycerides Urine pH Urine Creatinine Urine Total Protein Vancomycin Trough Digoxin Crossmatch 10/07/19 10/09/19 10/09/19 05:54 10:52 10:52 WBC 16.6 H RBC Hgb Hct MCV MCH MCHC RDW Plt Count 498 H Lymph % (Auto) Emmons % (Auto) Lymph # Emmons # Seg Neutrophils % Seg Neuts % (Manual) 93.0 H Lymphocytes % (Manual) 5.0 L Seg Neutrophils # Seg Neutrophils # Man 15.4 H Lymphocytes # (Manual) 0.8 L Monocytes # (Manual) POC ABG pH ABG pH POC ABG pCO2 POC ABG pO2 ABG pO2 ABG HCO3 ABG Base Excess ABG Hemoglobin Oxyhemoglobin Sodium Potassium Chloride 97.9 L Carbon Dioxide 20 L D BUN 23 H Creatinine 1.7 H D Glucose 109 H POC Glucose Calcium 8.1 L Phosphorus Magnesium Direct Bilirubin AST Alkaline Phosphatase C-Reactive Protein Serum Total Protein Total Protein Albumin Prealbumin Fglau-3-Jcdjlkoub Tvkva-3-Utmnbhtul Gamma Globulins PEP Interpretation Triglycerides Urine pH Urine Creatinine Urine Total Protein Vancomycin Trough Digoxin Crossmatch 10/09/19 10/10/19 10/10/19 17:23 05:30 05:30 WBC 14.6 H RBC Hgb 11.1 L Hct 33.5 L MCV MCH MCHC RDW Plt Count 527 H Lymph % (Auto) Emmons % (Auto) Lymph # Emmons # Seg Neutrophils % Seg Neuts % (Manual) Lymphocytes % (Manual) Seg Neutrophils # Seg Neutrophils # Man Lymphocytes # (Manual) Monocytes # (Manual) POC ABG pH ABG pH POC ABG pCO2 POC ABG pO2 ABG pO2 ABG HCO3 ABG Base Excess ABG Hemoglobin Oxyhemoglobin Sodium 130 L D Potassium 5.1 H Chloride 90.0 L 91.0 L Carbon Dioxide 20 L 20 L BUN 27 H 35 H Creatinine 1.9 H 2.0 H Glucose 104 H POC Glucose Calcium Phosphorus Magnesium Direct Bilirubin AST Alkaline Phosphatase C-Reactive Protein Serum Total Protein Total Protein Albumin Prealbumin Mzjgz-1-Pxkgghwnp Uuznr-7-Ividvqbbn Gamma Globulins PEP Interpretation Triglycerides Urine pH Urine Creatinine Urine Total Protein Vancomycin Trough Digoxin Crossmatch 10/10/19 10/10/19 10/11/19 08:33 08:44 05:41 WBC 13.2 H RBC Hgb 11.3 L Hct 33.8 L MCV MCH MCHC RDW 15.3 H Plt Count 543 H Lymph % (Auto) Emmons % (Auto) Lymph # Emmons # Seg Neutrophils % Seg Neuts % (Manual) Lymphocytes % (Manual) Seg Neutrophils # Seg Neutrophils # Man Lymphocytes # (Manual) Monocytes # (Manual) POC ABG pH ABG pH POC ABG pCO2 POC ABG pO2 ABG pO2 ABG HCO3 ABG Base Excess ABG Hemoglobin Oxyhemoglobin Sodium Potassium Chloride Carbon Dioxide BUN Creatinine Glucose 113 H POC Glucose 117 H Calcium Phosphorus Magnesium Direct Bilirubin AST Alkaline Phosphatase C-Reactive Protein Serum Total Protein Total Protein Albumin Prealbumin Xvhbv-7-Ttespazuf Bmsqn-1-Tlxsbslyl Gamma Globulins PEP Interpretation Triglycerides Urine pH Urine Creatinine Urine Total Protein Vancomycin Trough Digoxin Crossmatch 10/11/19 10/11/19 10/11/19 05:41 06:23 06:23 WBC RBC Hgb Hct MCV MCH MCHC RDW Plt Count Lymph % (Auto) Emmons % (Auto) Lymph # Emm[place] # Seg Neutrophils % Seg Neuts % (Manual) Lymphocytes % (Manual) Seg Neutrophils # Seg Neutrophils # Man Lymphocytes # (Manual) Monocytes # (Manual) POC ABG pH ABG pH POC ABG pCO2 POC ABG pO2 ABG pO2 ABG HCO3 ABG Base Excess ABG Hemoglobin Oxyhemoglobin Sodium 134 L Potassium Chloride 96.3 L Carbon Dioxide BUN 37 H Creatinine Glucose 58 L POC Glucose Calcium Phosphorus 4.90 H Magnesium Direct Bilirubin AST Alkaline Phosphatase C-Reactive Protein Serum Total Protein Total Protein Albumin Prealbumin Wvswt-6-Iikxkwebi Nypcr-3-Wfhirbyia Gamma Globulins PEP Interpretation Triglycerides Urine pH Urine Creatinine 118.2 H 116.8 H Urine Total Protein 105 H 104 H Vancomycin Trough Digoxin Crossmatch 10/11/19 10/12/19 10/12/19 09:00 06:09 06:09 WBC 13.8 H RBC 3.39 L Hgb 10.2 L Hct 30.9 L MCV MCH MCHC RDW 15.5 H Plt Count 459 H Lymph % (Auto) Emmons % (Auto) Lymph # Emmons # Seg Neutrophils % Seg Neuts % (Manual) Lymphocytes % (Manual) Seg Neutrophils # Seg Neutrophils # Man Lymphocytes # (Manual) Monocytes # (Manual) POC ABG pH ABG pH POC ABG pCO2 POC ABG pO2 ABG pO2 ABG HCO3 ABG Base Excess ABG Hemoglobin Oxyhemoglobin Sodium 131 L Potassium Chloride 96.2 L Carbon Dioxide 21 L BUN 43 H Creatinine Glucose 72 L POC Glucose Calcium Phosphorus Magnesium Direct Bilirubin AST Alkaline Phosphatase C-Reactive Protein Serum Total Protein 5.2 L Total Protein Albumin 1.9 L Prealbumin Xqhnu-7-Tusdvjmqv 0.9 H Pwlzz-6-Rvbvlmiav 1.0 H Gamma Globulins 0.7 L PEP Interpretation see below H Triglycerides Urine pH Urine Creatinine Urine Total Protein Vancomycin Trough Digoxin Crossmatch 10/12/19 10/12/19 10/12/19 08:20 09:30 09:30 WBC RBC Hgb Hct MCV MCH MCHC RDW Plt Count Lymph % (Auto) Emmons % (Auto) Lymph # Emmons # Seg Neutrophils % Seg Neuts % (Manual) Lymphocytes % (Manual) Seg Neutrophils # Seg Neutrophils # Man Lymphocytes # (Manual) Monocytes # (Manual) POC ABG pH ABG pH POC ABG pCO2 POC ABG pO2 63 L ABG pO2 ABG HCO3 ABG Base Excess ABG Hemoglobin Oxyhemoglobin Sodium Potassium Chloride Carbon Dioxide BUN Creatinine Glucose POC Glucose Calcium Phosphorus Magnesium 2.50 H Direct Bilirubin 0.3 H AST Alkaline Phosphatase C-Reactive Protein Serum Total Protein Total Protein 5.1 L Albumin 2.2 L Prealbumin Qgjxj-3-Mflzybmvj Izqqn-3-Vqswomvxa Gamma Globulins PEP Interpretation Triglycerides Urine pH Urine Creatinine Urine Total Protein Vancomycin Trough Digoxin Crossmatch 10/13/19 10/13/19 10/13/19 04:20 04:20 13:20 WBC 15.7 H RBC 3.64 L Hgb 10.9 L Hct 33.1 L MCV MCH MCHC RDW 15.8 H Plt Count 488 H Lymph % (Auto) Emmons % (Auto) Lymph # [place] # Seg Neutrophils % Seg Neuts % (Manual) Lymphocytes % (Manual) Seg Neutrophils # Seg Neutrophils # Man Lymphocytes # (Manual) Monocytes # (Manual) POC ABG pH ABG pH POC ABG pCO2 POC ABG pO2 ABG pO2 ABG HCO3 ABG Base Excess ABG Hemoglobin Oxyhemoglobin Sodium Potassium Chloride Carbon Dioxide BUN 28 H Creatinine Glucose POC Glucose Calcium Phosphorus Magnesium Direct Bilirubin AST Alkaline Phosphatase C-Reactive Protein Serum Total Protein Total Protein Albumin Prealbumin Hgpnd-9-Gdcfhmupj Pvwkl-1-Aubpkbkir Gamma Globulins PEP Interpretation Triglycerides Urine pH Urine Creatinine Urine Total Protein Vancomycin Trough Digoxin Crossmatch See Detail 10/13/19 10/13/19 10/14/19 18:24 20:05 04:47 WBC 24.2 H RBC Hgb 10.9 L Hct 34.2 L MCV MCH MCHC RDW 17.0 H Plt Count 442 H Lymph % (Auto) Emmons % (Auto) Lymph # [place] # Seg Neutrophils % Seg Neuts % (Manual) Lymphocytes % (Manual) Seg Neutrophils # Seg Neutrophils # Man Lymphocytes # (Manual) Monocytes # (Manual) POC ABG pH ABG pH 7.180 L* 7.278 L POC ABG pCO2 POC ABG pO2 ABG pO2 130.7 H ABG HCO3 ABG Base Excess -6.5 L -6.5 L ABG Hemoglobin 12.2 L 12.3 L Oxyhemoglobin 92.9 L Sodium Potassium Chloride Carbon Dioxide BUN Creatinine Glucose POC Glucose Calcium Phosphorus Magnesium Direct Bilirubin AST Alkaline Phosphatase C-Reactive Protein Serum Total Protein Total Protein Albumin Prealbumin Ftjzn-6-Oxxmgsdsl Gkkbw-6-Ejqfdkbeg Gamma Globulins PEP Interpretation Triglycerides Urine pH Urine Creatinine Urine Total Protein Vancomycin Trough Digoxin Crossmatch 10/14/19 10/14/19 10/14/19 04:47 05:40 10:14 WBC RBC Hgb Hct MCV MCH MCHC RDW Plt Count Lymph % (Auto) Emmons % (Auto) Lymph # Emmons # Seg Neutrophils % Seg Neuts % (Manual) Lymphocytes % (Manual) Seg Neutrophils # Seg Neutrophils # Man Lymphocytes # (Manual) Monocytes # (Manual) POC ABG pH ABG pH POC ABG pCO2 POC ABG pO2 ABG pO2 76.3 L ABG HCO3 19.1 L ABG Base Excess -5.8 L ABG Hemoglobin 10.9 L Oxyhemoglobin 93.4 L Sodium Potassium 5.1 H D Chloride 109.2 H Carbon Dioxide 17 L BUN 38 H Creatinine 1.8 H D Glucose 104 H POC Glucose Calcium 7.4 L Phosphorus 5.60 H Magnesium Direct Bilirubin AST Alkaline Phosphatase C-Reactive Protein Serum Total Protein Total Protein Albumin Prealbumin Hslys-8-Nwdxgvfmj Fxxmz-8-Zwupwotcp Gamma Globulins PEP Interpretation Triglycerides Urine pH Urine Creatinine Urine Total Protein Vancomycin Trough Digoxin Crossmatch 10/14/19 10/15/19 10/15/19 23:46 04:32 04:32 WBC 15.5 H RBC 2.89 L Hgb 8.8 L Hct 27.3 L D MCV MCH MCHC RDW 16.6 H Plt Count Lymph % (Auto) Emmons % (Auto) Lymph # Emmons # Seg Neutrophils % Seg Neuts % (Manual) Lymphocytes % (Manual) Seg Neutrophils # Seg Neutrophils # Man Lymphocytes # (Manual) Monocytes # (Manual) POC ABG pH ABG pH POC ABG pCO2 POC ABG pO2 ABG pO2 ABG HCO3 ABG Base Excess ABG Hemoglobin Oxyhemoglobin Sodium 147 H Potassium Chloride 114.0 H Carbon Dioxide 19 L BUN 42 H Creatinine Glucose 112 H POC Glucose 113 H Calcium 7.3 L Phosphorus Magnesium Direct Bilirubin AST 72 H Alkaline Phosphatase C-Reactive Protein 30.60 H Serum Total Protein Total Protein 4.0 L D Albumin 1.7 L Prealbumin 0.030 L Wksrd-9-Ihjmecwpf Nwlsb-2-Uqwyrftew Gamma Globulins PEP Interpretation Triglycerides Urine pH Urine Creatinine Urine Total Protein Vancomycin Trough Digoxin Crossmatch 10/15/19 10/15/19 10/15/19 05:30 12:08 17:23 WBC RBC Hgb Hct MCV MCH MCHC RDW Plt Count Lymph % (Auto) Emmons % (Auto) Lymph # Emmons # Seg Neutrophils % Seg Neuts % (Manual) Lymphocytes % (Manual) Seg Neutrophils # Seg Neutrophils # Man Lymphocytes # (Manual) Monocytes # (Manual) POC ABG pH ABG pH 7.296 L POC ABG pCO2 POC ABG pO2 ABG pO2 114.7 H ABG HCO3 ABG Base Excess -3.7 L ABG Hemoglobin 8.9 L Oxyhemoglobin Sodium Potassium Chloride Carbon Dioxide BUN Creatinine Glucose POC Glucose 106 H 106 H Calcium Phosphorus Magnesium Direct Bilirubin AST Alkaline Phosphatase C-Reactive Protein Serum Total Protein Total Protein Albumin Prealbumin Jewbe-6-Wgyegdusi Jmdes-1-Zlelqfrwy Gamma Globulins PEP Interpretation Triglycerides Urine pH Urine Creatinine Urine Total Protein Vancomycin Trough Digoxin Crossmatch 10/16/19 10/16/19 10/16/19 00:07 04:44 05:24 WBC RBC Hgb Hct MCV MCH MCHC RDW Plt Count Lymph % (Auto) Emmons % (Auto) Lymph # Emmons # Seg Neutrophils % Seg Neuts % (Manual) Lymphocytes % (Manual) Seg Neutrophils # Seg Neutrophils # Man Lymphocytes # (Manual) Monocytes # (Manual) POC ABG pH ABG pH POC ABG pCO2 POC ABG pO2 ABG pO2 ABG HCO3 ABG Base Excess ABG Hemoglobin Oxyhemoglobin Sodium 150 H Potassium Chloride 115.8 H Carbon Dioxide BUN 35 H Creatinine Glucose 129 H POC Glucose 119 H 129 H Calcium 7.3 L Phosphorus 1.80 L D Magnesium Direct Bilirubin AST Alkaline Phosphatase C-Reactive Protein Serum Total Protein Total Protein Albumin Prealbumin Fwqvi-9-Hwdgcmlxy Drvcx-2-Icbickovn Gamma Globulins PEP Interpretation Triglycerides Urine pH Urine Creatinine Urine Total Protein Vancomycin Trough Digoxin Crossmatch 10/16/19 10/16/19 10/16/19 06:53 09:20 11:58 WBC 14.6 H RBC 2.70 L Hgb 8.1 L Hct 25.2 L MCV MCH MCHC RDW 16.7 H Plt Count Lymph % (Auto) Emmons % (Auto) Lymph # Emmons # Seg Neutrophils % Seg Neuts % (Manual) 79.0 H Lymphocytes % (Manual) 4.0 L Seg Neutrophils # Seg Neutrophils # Man 11.5 H Lymphocytes # (Manual) 0.6 L Monocytes # (Manual) POC ABG pH ABG pH POC ABG pCO2 47.0 H POC ABG pO2 ABG pO2 ABG HCO3 ABG Base Excess ABG Hemoglobin Oxyhemoglobin Sodium Potassium Chloride Carbon Dioxide BUN Creatinine Glucose POC Glucose Calcium Phosphorus Magnesium Direct Bilirubin AST Alkaline Phosphatase C-Reactive Protein Serum Total Protein Total Protein Albumin Prealbumin Iqppf-2-Dfvhmihtv Vwjng-2-Usnrrwacd Gamma Globulins PEP Interpretation Triglycerides Urine pH Urine Creatinine Urine Total Protein Vancomycin Trough Digoxin Crossmatch See Detail 10/16/19 10/16/19 10/16/19 15:23 17:50 23:58 WBC RBC Hgb Hct MCV MCH MCHC RDW Plt Count Lymph % (Auto) Emmons % (Auto) Lymph # Emmons # Seg Neutrophils % Seg Neuts % (Manual) Lymphocytes % (Manual) Seg Neutrophils # Seg Neutrophils # Man Lymphocytes # (Manual) Monocytes # (Manual) POC ABG pH ABG pH POC ABG pCO2 POC ABG pO2 ABG pO2 ABG HCO3 ABG Base Excess ABG Hemoglobin Oxyhemoglobin Sodium Potassium Chloride Carbon Dioxide BUN Creatinine Glucose POC Glucose 221 H 201 H 179 H Calcium Phosphorus Magnesium Direct Bilirubin AST Alkaline Phosphatase C-Reactive Protein Serum Total Protein Total Protein Albumin Prealbumin Rnmjj-3-Oxtwhbtwu Thkdq-6-Kwxancqst Gamma Globulins PEP Interpretation Triglycerides Urine pH Urine Creatinine Urine Total Protein Vancomycin Trough Digoxin Crossmatch 10/17/19 10/17/19 10/17/19 04:08 04:08 05:41 WBC 22.3 H RBC 3.35 L Hgb 10.0 L Hct 31.2 L D MCV MCH MCHC RDW 16.1 H Plt Count Lymph % (Auto) Emmons % (Auto) Lymph # Emmons # Seg Neutrophils % Seg Neuts % (Manual) Lymphocytes % (Manual) Seg Neutrophils # Seg Neutrophils # Man Lymphocytes # (Manual) Monocytes # (Manual) POC ABG pH 7.310 L ABG pH POC ABG pCO2 52.8 H POC ABG pO2 70 L ABG pO2 ABG HCO3 ABG Base Excess ABG Hemoglobin Oxyhemoglobin Sodium 147 H Potassium Chloride 114.9 H Carbon Dioxide BUN 36 H Creatinine Glucose 165 H POC Glucose Calcium 6.9 L Phosphorus 2.20 L D Magnesium Direct Bilirubin AST Alkaline Phosphatase C-Reactive Protein Serum Total Protein Total Protein Albumin Prealbumin Cuchi-2-Lewslaljz Htbih-8-Gvmkbsnwl Gamma Globulins PEP Interpretation Triglycerides Urine pH Urine Creatinine Urine Total Protein Vancomycin Trough Digoxin Crossmatch 10/17/19 10/17/19 10/17/19 05:42 11:33 18:17 WBC RBC Hgb Hct MCV MCH MCHC RDW Plt Count Lymph % (Auto) Emmons % (Auto) Lymph # Emmons # Seg Neutrophils % Seg Neuts % (Manual) Lymphocytes % (Manual) Seg Neutrophils # Seg Neutrophils # Man Lymphocytes # (Manual) Monocytes # (Manual) POC ABG pH ABG pH POC ABG pCO2 POC ABG pO2 ABG pO2 ABG HCO3 ABG Base Excess ABG Hemoglobin Oxyhemoglobin Sodium Potassium Chloride Carbon Dioxide BUN Creatinine Glucose POC Glucose 149 H 154 H 163 H Calcium Phosphorus Magnesium Direct Bilirubin AST Alkaline Phosphatase C-Reactive Protein Serum Total Protein Total Protein Albumin Prealbumin Jryld-4-Lelcztjxb Dlndf-7-Vcgjzfizw Gamma Globulins PEP Interpretation Triglycerides Urine pH Urine Creatinine Urine Total Protein Vancomycin Trough Digoxin Crossmatch 10/17/19 10/18/19 10/18/19 23:34 03:29 04:50 WBC RBC Hgb Hct MCV MCH MCHC RDW Plt Count Lymph % (Auto) Emmons % (Auto) Lymph # Emmons # Seg Neutrophils % Seg Neuts % (Manual) Lymphocytes % (Manual) Seg Neutrophils # Seg Neutrophils # Man Lymphocytes # (Manual) Monocytes # (Manual) POC ABG pH ABG pH POC ABG pCO2 POC ABG pO2 ABG pO2 78.8 L ABG HCO3 ABG Base Excess ABG Hemoglobin 8.8 L Oxyhemoglobin Sodium Potassium Chloride 111.8 H Carbon Dioxide BUN 27 H Creatinine 0.6 L Glucose 140 H POC Glucose 135 H Calcium 7.1 L Phosphorus 1.80 L Magnesium Direct Bilirubin AST Alkaline Phosphatase C-Reactive Protein Serum Total Protein Total Protein Albumin Prealbumin Bilvf-3-Xhbrmrsmj Kiquv-8-Ukevzeoek Gamma Globulins PEP Interpretation Triglycerides Urine pH Urine Creatinine Urine Total Protein Vancomycin Trough Digoxin Crossmatch 10/18/19 10/18/19 10/18/19 05:45 11:19 18:26 WBC RBC Hgb Hct MCV MCH MCHC RDW Plt Count Lymph % (Auto) Emmons % (Auto) Lymph # Emmons # Seg Neutrophils % Seg Neuts % (Manual) Lymphocytes % (Manual) Seg Neutrophils # Seg Neutrophils # Man Lymphocytes # (Manual) Monocytes # (Manual) POC ABG pH ABG pH POC ABG pCO2 POC ABG pO2 ABG pO2 ABG HCO3 ABG Base Excess ABG Hemoglobin Oxyhemoglobin Sodium Potassium Chloride Carbon Dioxide BUN Creatinine Glucose POC Glucose 145 H 152 H 125 H Calcium Phosphorus Magnesium Direct Bilirubin AST Alkaline Phosphatase C-Reactive Protein Serum Total Protein Total Protein Albumin Prealbumin Wggpn-2-Pmguasdcj Jhuqg-3-Wnfriopla Gamma Globulins PEP Interpretation Triglycerides Urine pH Urine Creatinine Urine Total Protein Vancomycin Trough Digoxin Crossmatch 10/18/19 10/19/19 10/19/19 23:27 04:21 04:21 WBC RBC Hgb Hct MCV MCH MCHC RDW Plt Count Lymph % (Auto) Emmons % (Auto) Lymph # Emmons # Seg Neutrophils % Seg Neuts % (Manual) Lymphocytes % (Manual) Seg Neutrophils # Seg Neutrophils # Man Lymphocytes # (Manual) Monocytes # (Manual) POC ABG pH ABG pH POC ABG pCO2 POC ABG pO2 ABG pO2 ABG HCO3 ABG Base Excess ABG Hemoglobin Oxyhemoglobin Sodium Potassium Chloride 108.4 H Carbon Dioxide BUN 22 H Creatinine 0.5 L Glucose 123 H POC Glucose 127 H Calcium 7.4 L Phosphorus 1.80 L Magnesium Direct Bilirubin AST Alkaline Phosphatase C-Reactive Protein Serum Total Protein Total Protein Albumin Prealbumin Xwkpi-8-Bnbbkhrtn Dbnnt-6-Yjjepznvr Gamma Globulins PEP Interpretation Triglycerides Urine pH Urine Creatinine Urine Total Protein Vancomycin Trough Digoxin 0.7 L Crossmatch 10/19/19 10/19/19 10/19/19 05:00 05:35 11:26 WBC RBC Hgb Hct MCV MCH MCHC RDW Plt Count Lymph % (Auto) Emmons % (Auto) Lymph # Emmons # Seg Neutrophils % Seg Neuts % (Manual) Lymphocytes % (Manual) Seg Neutrophils # Seg Neutrophils # Man Lymphocytes # (Manual) Monocytes # (Manual) POC ABG pH ABG pH 7.456 H POC ABG pCO2 POC ABG pO2 ABG pO2 78.8 L ABG HCO3 ABG Base Excess ABG Hemoglobin 5.6 L Oxyhemoglobin Sodium Potassium Chloride Carbon Dioxide BUN Creatinine Glucose POC Glucose 124 H 111 H Calcium Phosphorus Magnesium Direct Bilirubin AST Alkaline Phosphatase C-Reactive Protein Serum Total Protein Total Protein Albumin Prealbumin Thpwx-8-Pekozqref Yulmp-9-Nsdalwrpc Gamma Globulins PEP Interpretation Triglycerides Urine pH Urine Creatinine Urine Total Protein Vancomycin Trough Digoxin Crossmatch 10/19/19 10/20/19 10/20/19 23:23 04:50 05:17 WBC RBC Hgb Hct MCV MCH MCHC RDW Plt Count Lymph % (Auto) Emmons % (Auto) Lymph # Emmons # Seg Neutrophils % Seg Neuts % (Manual) Lymphocytes % (Manual) Seg Neutrophils # Seg Neutrophils # Man Lymphocytes # (Manual) Monocytes # (Manual) POC ABG pH ABG pH POC ABG pCO2 POC ABG pO2 ABG pO2 ABG HCO3 ABG Base Excess ABG Hemoglobin Oxyhemoglobin Sodium Potassium Chloride 108.1 H Carbon Dioxide BUN Creatinine 0.4 L Glucose 134 H POC Glucose 129 H 123 H Calcium 7.1 L Phosphorus Magnesium Direct Bilirubin AST Alkaline Phosphatase C-Reactive Protein Serum Total Protein Total Protein Albumin Prealbumin Pgwwz-4-Leruyftxy Tmqba-0-Necwlmbhf Gamma Globulins PEP Interpretation Triglycerides Urine pH Urine Creatinine Urine Total Protein Vancomycin Trough Digoxin Crossmatch 10/20/19 10/20/19 10/21/19 11:40 19:06 05:08 WBC RBC Hgb Hct MCV MCH MCHC RDW Plt Count Lymph % (Auto) Emmons % (Auto) Lymph # Emmons # Seg Neutrophils % Seg Neuts % (Manual) Lymphocytes % (Manual) Seg Neutrophils # Seg Neutrophils # Man Lymphocytes # (Manual) Monocytes # (Manual) POC ABG pH ABG pH POC ABG pCO2 POC ABG pO2 ABG pO2 ABG HCO3 ABG Base Excess ABG Hemoglobin Oxyhemoglobin Sodium Potassium Chloride Carbon Dioxide BUN Creatinine Glucose POC Glucose 139 H 117 H 131 H Calcium Phosphorus Magnesium Direct Bilirubin AST Alkaline Phosphatase C-Reactive Protein Serum Total Protein Total Protein Albumin Prealbumin Fdvrq-5-Xxbphmukr Gulcl-4-Ckdkfeadc Gamma Globulins PEP Interpretation Triglycerides Urine pH Urine Creatinine Urine Total Protein Vancomycin Trough Digoxin Crossmatch 10/21/19 10/21/19 10/21/19 05:30 12:04 17:31 WBC RBC Hgb Hct MCV MCH MCHC RDW Plt Count Lymph % (Auto) Emmons % (Auto) Lymph # Emmons # Seg Neutrophils % Seg Neuts % (Manual) Lymphocytes % (Manual) Seg Neutrophils # Seg Neutrophils # Man Lymphocytes # (Manual) Monocytes # (Manual) POC ABG pH ABG pH POC ABG pCO2 POC ABG pO2 ABG pO2 ABG HCO3 ABG Base Excess ABG Hemoglobin Oxyhemoglobin Sodium Potassium Chloride 107.8 H Carbon Dioxide BUN Creatinine 0.5 L Glucose 119 H POC Glucose 119 H 110 H Calcium 7.6 L Phosphorus Magnesium Direct Bilirubin AST Alkaline Phosphatase C-Reactive Protein Serum Total Protein Total Protein Albumin Prealbumin Inegq-8-Gjwcykqep Zuwfs-2-Fbfryypkj Gamma Globulins PEP Interpretation Triglycerides Urine pH Urine Creatinine Urine Total Protein Vancomycin Trough Digoxin Crossmatch 10/22/19 10/22/19 10/22/19 05:14 05:37 12:07 WBC RBC Hgb Hct MCV MCH MCHC RDW Plt Count Lymph % (Auto) Emmons % (Auto) Lymph # Emmons # Seg Neutrophils % Seg Neuts % (Manual) Lymphocytes % (Manual) Seg Neutrophils # Seg Neutrophils # Man Lymphocytes # (Manual) Monocytes # (Manual) POC ABG pH ABG pH POC ABG pCO2 POC ABG pO2 ABG pO2 ABG HCO3 ABG Base Excess ABG Hemoglobin Oxyhemoglobin Sodium Potassium Chloride Carbon Dioxide BUN Creatinine 0.5 L Glucose 116 H POC Glucose 110 H 126 H Calcium 7.7 L Phosphorus Magnesium Direct Bilirubin AST Alkaline Phosphatase C-Reactive Protein Serum Total Protein Total Protein Albumin Prealbumin Crkfb-3-Xnhtepjsu Ovxxe-2-Vxjqmzyib Gamma Globulins PEP Interpretation Triglycerides Urine pH Urine Creatinine Urine Total Protein Vancomycin Trough Digoxin Crossmatch 10/22/19 10/22/19 10/23/19 18:36 23:19 04:39 WBC RBC Hgb Hct MCV MCH MCHC RDW Plt Count Lymph % (Auto) Emmons % (Auto) Lymph # Emmons # Seg Neutrophils % Seg Neuts % (Manual) Lymphocytes % (Manual) Seg Neutrophils # Seg Neutrophils # Man Lymphocytes # (Manual) Monocytes # (Manual) POC ABG pH ABG pH POC ABG pCO2 POC ABG pO2 ABG pO2 ABG HCO3 ABG Base Excess ABG Hemoglobin Oxyhemoglobin Sodium Potassium Chloride Carbon Dioxide BUN Creatinine Glucose POC Glucose 120 H 127 H 112 H Calcium Phosphorus Magnesium Direct Bilirubin AST Alkaline Phosphatase C-Reactive Protein Serum Total Protein Total Protein Albumin Prealbumin Pwcbj-2-Vdnwiybdz Rrebo-8-Yffjyklnf Gamma Globulins PEP Interpretation Triglycerides Urine pH Urine Creatinine Urine Total Protein Vancomycin Trough Digoxin Crossmatch 10/23/19 10/23/19 10/23/19 04:47 05:15 10:44 WBC 18.3 H RBC 2.33 L Hgb 7.0 L Hct 21.5 L MCV MCH MCHC RDW 16.2 H Plt Count Lymph % (Auto) 4.9 L Emmons % (Auto) 8.1 H Lymph # 0.9 L Emmons # 1.5 H Seg Neutrophils % 86.7 H Seg Neuts % (Manual) Lymphocytes % (Manual) Seg Neutrophils # 15.9 H Seg Neutrophils # Man Lymphocytes # (Manual) Monocytes # (Manual) POC ABG pH ABG pH POC ABG pCO2 POC ABG pO2 ABG pO2 68.9 L ABG HCO3 28.7 H ABG Base Excess 3.4 H ABG Hemoglobin 6.6 L Oxyhemoglobin 94.1 L Sodium Potassium Chloride Carbon Dioxide BUN Creatinine 0.5 L Glucose 165 H POC Glucose Calcium 7.4 L Phosphorus Magnesium Direct Bilirubin AST Alkaline Phosphatase C-Reactive Protein Serum Total Protein Total Protein Albumin Prealbumin Txbro-5-Hugwcgxlq Hxbis-2-Dlamdlmgd Gamma Globulins PEP Interpretation Triglycerides Urine pH Urine Creatinine Urine Total Protein Vancomycin Trough Digoxin Crossmatch 10/23/19 10/23/1919 10:44 11:46 11:50 WBC RBC Hgb Hct MCV MCH MCHC RDW Plt Count Lymph % (Auto) Emmons % (Auto) Lymph # Emmons # Seg Neutrophils % Seg Neuts % (Manual) Lymphocytes % (Manual) Seg Neutrophils # Seg Neutrophils # Man Lymphocytes # (Manual) Monocytes # (Manual) POC ABG pH ABG pH POC ABG pCO2 POC ABG pO2 ABG pO2 ABG HCO3 ABG Base Excess ABG Hemoglobin Oxyhemoglobin Sodium Potassium Chloride Carbon Dioxide BUN Creatinine Glucose POC Glucose 138 H Calcium Phosphorus Magnesium Direct Bilirubin 0.7 H AST Alkaline Phosphatase C-Reactive Protein Serum Total Protein Total Protein 4.5 L Albumin 1.2 L Prealbumin Xmmzx-9-Vcmuxnwks Ugcjx-7-Ztqgxakch Gamma Globulins PEP Interpretation Triglycerides Urine pH Urine Creatinine Urine Total Protein Vancomycin Trough Digoxin Crossmatch See Detail 10/23/19 10/24/19 10/24/19 17:53 00:07 05:05 WBC RBC Hgb Hct MCV MCH MCHC RDW Plt Count Lymph % (Auto) Emmons % (Auto) Lymph # Emmons # Seg Neutrophils % Seg Neuts % (Manual) Lymphocytes % (Manual) Seg Neutrophils # Seg Neutrophils # Man Lymphocytes # (Manual) Monocytes # (Manual) POC ABG pH ABG pH POC ABG pCO2 POC ABG pO2 ABG pO2 ABG HCO3 ABG Base Excess ABG Hemoglobin Oxyhemoglobin Sodium Potassium 3.5 L Chloride Carbon Dioxide BUN Creatinine 0.5 L Glucose 116 H POC Glucose 137 H 110 H Calcium 8.0 L Phosphorus Magnesium Direct Bilirubin AST Alkaline Phosphatase C-Reactive Protein Serum Total Protein Total Protein Albumin Prealbumin Uqwau-4-Lpeitrhjb Duoim-7-Liefktagn Gamma Globulins PEP Interpretation Triglycerides Urine pH Urine Creatinine Urine Total Protein Vancomycin Trough Digoxin Crossmatch 10/24/19 10/24/19 10/24/19 05:05 11:56 13:00 WBC 13.0 H RBC 2.73 L Hgb 8.0 L Hct 24.2 L MCV MCH MCHC RDW 17.9 H Plt Count Lymph % (Auto) 7.0 L Emmons % (Auto) 9.5 H Lymph # 0.9 L Emmons # 1.2 H Seg Neutrophils % 82.7 H Seg Neuts % (Manual) Lymphocytes % (Manual) Seg Neutrophils # 10.7 H Seg Neutrophils # Man Lymphocytes # (Manual) Monocytes # (Manual) POC ABG pH ABG pH POC ABG pCO2 POC ABG pO2 ABG pO2 ABG HCO3 ABG Base Excess ABG Hemoglobin Oxyhemoglobin Sodium Potassium Chloride Carbon Dioxide BUN Creatinine Glucose POC Glucose 159 H Calcium Phosphorus Magnesium Direct Bilirubin AST Alkaline Phosphatase C-Reactive Protein Serum Total Protein Total Protein Albumin Prealbumin Nnzog-7-Inihgsdar Kbsuo-2-Vyerpobkp Gamma Globulins PEP Interpretation Triglycerides 216 H Urine pH Urine Creatinine Urine Total Protein Vancomycin Trough Digoxin Crossmatch 10/24/19 10/24/19 10/25/19 17:42 23:45 04:19 WBC RBC Hgb Hct MCV MCH MCHC RDW Plt Count Lymph % (Auto) Emmons % (Auto) Lymph # Emmons # Seg Neutrophils % Seg Neuts % (Manual) Lymphocytes % (Manual) Seg Neutrophils # Seg Neutrophils # Man Lymphocytes # (Manual) Monocytes # (Manual) POC ABG pH ABG pH POC ABG pCO2 POC ABG pO2 ABG pO2 ABG HCO3 ABG Base Excess ABG Hemoglobin Oxyhemoglobin Sodium 147 H Potassium Chloride Carbon Dioxide 33 H BUN Creatinine 0.5 L Glucose 111 H POC Glucose 120 H 116 H Calcium Phosphorus Magnesium Direct Bilirubin AST Alkaline Phosphatase C-Reactive Protein Serum Total Protein Total Protein 5.7 L D Albumin 2.5 L Prealbumin Tjoqd-1-Jgjjwipfq Ztdhs-4-Jybgfgqoe Gamma Globulins PEP Interpretation Triglycerides 230 H Urine pH Urine Creatinine Urine Total Protein Vancomycin Trough Digoxin Crossmatch 10/25/19 10/25/19 10/25/19 04:19 05:31 12:20 WBC RBC 2.69 L Hgb 8.1 L Hct 23.9 L MCV MCH MCHC RDW 17.3 H Plt Count Lymph % (Auto) Emmons % (Auto) Lymph # Emmons # Seg Neutrophils % Seg Neuts % (Manual) Lymphocytes % (Manual) Seg Neutrophils # Seg Neutrophils # Man Lymphocytes # (Manual) Monocytes # (Manual) POC ABG pH ABG pH POC ABG pCO2 POC ABG pO2 ABG pO2 ABG HCO3 ABG Base Excess ABG Hemoglobin Oxyhemoglobin Sodium Potassium Chloride Carbon Dioxide BUN Creatinine Glucose POC Glucose 126 H 114 H Calcium Phosphorus Magnesium Direct Bilirubin AST Alkaline Phosphatase C-Reactive Protein Serum Total Protein Total Protein Albumin Prealbumin Sjyig-1-Ommeraquv Phwmz-8-Lqlbobzcu Gamma Globulins PEP Interpretation Triglycerides Urine pH Urine Creatinine Urine Total Protein Vancomycin Trough Digoxin Crossmatch 12/11/0110/25/19 10/26/19 18:30 23:09 06:15 WBC RBC Hgb Hct MCV MCH MCHC RDW Plt Count Lymph % (Auto) Emmons % (Auto) Lymph # Emmons # Seg Neutrophils % Seg Neuts % (Manual) Lymphocytes % (Manual) Seg Neutrophils # Seg Neutrophils # Man Lymphocytes # (Manual) Monocytes # (Manual) POC ABG pH ABG pH POC ABG pCO2 POC ABG pO2 ABG pO2 ABG HCO3 ABG Base Excess ABG Hemoglobin Oxyhemoglobin Sodium Potassium 3.5 L Chloride Carbon Dioxide BUN Creatinine 0.5 L Glucose 112 H POC Glucose 121 H 107 H Calcium 8.3 L Phosphorus Magnesium Direct Bilirubin AST Alkaline Phosphatase 148 H C-Reactive Protein Serum Total Protein Total Protein 5.9 L Albumin 2.4 L Prealbumin Czefo-5-Xfixnkuxo Epasi-6-Afjgyshxw Gamma Globulins PEP Interpretation Triglycerides Urine pH Urine Creatinine Urine Total Protein Vancomycin Trough Digoxin Crossmatch 10/26/19 10/26/19 10/26/19 06:15 12:21 17:35 WBC RBC Hgb Hct MCV MCH MCHC RDW Plt Count Lymph % (Auto) Emmons % (Auto) Lymph # Emmons # Seg Neutrophils % Seg Neuts % (Manual) Lymphocytes % (Manual) Seg Neutrophils # Seg Neutrophils # Man Lymphocytes # (Manual) Monocytes # (Manual) POC ABG pH ABG pH POC ABG pCO2 POC ABG pO2 ABG pO2 ABG HCO3 ABG Base Excess ABG Hemoglobin Oxyhemoglobin Sodium Potassium Chloride Carbon Dioxide BUN Creatinine Glucose POC Glucose 134 H 141 H Calcium Phosphorus Magnesium Direct Bilirubin AST Alkaline Phosphatase C-Reactive Protein Serum Total Protein Total Protein Albumin Prealbumin Lmume-4-Erkolaadg Btwlf-6-Isyeodrly Gamma Globulins PEP Interpretation Triglycerides 185 H Urine pH Urine Creatinine Urine Total Protein Vancomycin Trough Digoxin Crossmatch 10/26/19 10/27/19 10/27/19 Unknown 04:30 11:33 WBC RBC Hgb Hct MCV MCH MCHC RDW Plt Count Lymph % (Auto) Emmons % (Auto) Lymph # Emmons # Seg Neutrophils % Seg Neuts % (Manual) Lymphocytes % (Manual) Seg Neutrophils # Seg Neutrophils # Man Lymphocytes # (Manual) Monocytes # (Manual) POC ABG pH ABG pH POC ABG pCO2 POC ABG pO2 ABG pO2 ABG HCO3 ABG Base Excess ABG Hemoglobin Oxyhemoglobin Sodium Potassium 3.2 L Chloride Carbon Dioxide BUN 23 H Creatinine 0.6 L Glucose 130 H POC Glucose 131 H Calcium 7.9 L Phosphorus Magnesium Direct Bilirubin AST Alkaline Phosphatase C-Reactive Protein Serum Total Protein Total Protein Albumin Prealbumin Chaqf-5-Vzqjutllb Wrwny-0-Bgxnewuwy Gamma Globulins PEP Interpretation Triglycerides Urine pH 9.0 H Urine Creatinine Urine Total Protein Vancomycin Trough Digoxin Crossmatch 10/27/19 10/28/19 10/28/19 17:45 05:25 05:49 WBC RBC 2.85 L Hgb 8.3 L Hct 26.8 L MCV MCH MCHC 31 L RDW 17.4 H Plt Count Lymph % (Auto) 8.9 L Emmons % (Auto) 14.3 H Lymph # 0.8 L Emmons # 1.3 H Seg Neutrophils % 76.5 H Seg Neuts % (Manual) Lymphocytes % (Manual) Seg Neutrophils # Seg Neutrophils # Man Lymphocytes # (Manual) Monocytes # (Manual) POC ABG pH ABG pH POC ABG pCO2 POC ABG pO2 ABG pO2 ABG HCO3 ABG Base Excess ABG Hemoglobin Oxyhemoglobin Sodium Potassium Chloride Carbon Dioxide BUN Creatinine Glucose POC Glucose 121 H 120 H Calcium Phosphorus Magnesium Direct Bilirubin AST Alkaline Phosphatase C-Reactive Protein Serum Total Protein Total Protein Albumin Prealbumin Cyxfp-3-Zjyevbxex Czluk-0-Jetbkzsuj Gamma Globulins PEP Interpretation Triglycerides Urine pH Urine Creatinine Urine Total Protein Vancomycin Trough Digoxin Crossmatch 10/28/19 10/28/19 10/28/19 07:19 12:07 18:21 WBC RBC Hgb Hct MCV MCH MCHC RDW Plt Count Lymph % (Auto) Emmons % (Auto) Lymph # Emmons # Seg Neutrophils % Seg Neuts % (Manual) Lymphocytes % (Manual) Seg Neutrophils # Seg Neutrophils # Man Lymphocytes # (Manual) Monocytes # (Manual) POC ABG pH ABG pH POC ABG pCO2 POC ABG pO2 ABG pO2 ABG HCO3 ABG Base Excess ABG Hemoglobin Oxyhemoglobin Sodium Potassium Chloride Carbon Dioxide BUN 23 H Creatinine 0.5 L Glucose 129 H POC Glucose 127 H 130 H Calcium 8.0 L Phosphorus Magnesium Direct Bilirubin AST Alkaline Phosphatase C-Reactive Protein Serum Total Protein Total Protein Albumin Prealbumin Mhjxc-1-Qiiilgflj Iqwpv-4-Dknaemspk Gamma Globulins PEP Interpretation Triglycerides Urine pH Urine Creatinine Urine Total Protein Vancomycin Trough Digoxin Crossmatch 10/28/19 10/29/19 10/29/19 23:30 05:30 05:30 WBC 11.2 H RBC 3.36 L Hgb 9.7 L Hct 29.4 L MCV MCH MCHC RDW 16.7 H Plt Count Lymph % (Auto) Emmons % (Auto) 16.0 H Lymph # Emmons # 1.8 H Seg Neutrophils % 70.2 H Seg Neuts % (Manual) Lymphocytes % (Manual) Seg Neutrophils # 7.9 H Seg Neutrophils # Man Lymphocytes # (Manual) Monocytes # (Manual) POC ABG pH ABG pH POC ABG pCO2 POC ABG pO2 ABG pO2 ABG HCO3 ABG Base Excess ABG Hemoglobin Oxyhemoglobin Sodium Potassium Chloride Carbon Dioxide BUN 23 H Creatinine 0.5 L Glucose POC Glucose 130 H Calcium 8.3 L Phosphorus Magnesium Direct Bilirubin AST Alkaline Phosphatase C-Reactive Protein Serum Total Protein Total Protein Albumin Prealbumin Nvrxt-7-Rtygowqlv Cismh-3-Anurtwcim Gamma Globulins PEP Interpretation Triglycerides Urine pH Urine Creatinine Urine Total Protein Vancomycin Trough Digoxin Crossmatch 10/29/19 10/29/19 10/29/19 05:52 13:10 18:02 WBC RBC Hgb Hct MCV MCH MCHC RDW Plt Count Lymph % (Auto) Emmons % (Auto) Lymph # Emmons # Seg Neutrophils % Seg Neuts % (Manual) Lymphocytes % (Manual) Seg Neutrophils # Seg Neutrophils # Man Lymphocytes # (Manual) Monocytes # (Manual) POC ABG pH ABG pH POC ABG pCO2 POC ABG pO2 ABG pO2 ABG HCO3 ABG Base Excess ABG Hemoglobin Oxyhemoglobin Sodium Potassium Chloride Carbon Dioxide BUN Creatinine Glucose POC Glucose 111 H 140 H 140 H Calcium Phosphorus Magnesium Direct Bilirubin AST Alkaline Phosphatase C-Reactive Protein Serum Total Protein Total Protein Albumin Prealbumin Jroep-5-Lscapayby Cuwnv-7-Lotzxverz Gamma Globulins PEP Interpretation Triglycerides Urine pH Urine Creatinine Urine Total Protein Vancomycin Trough Digoxin Crossmatch 10/29/19 10/30/19 10/30/19 23:58 01:05 05:15 WBC RBC Hgb Hct MCV MCH MCHC RDW Plt Count Lymph % (Auto) Emmons % (Auto) Lymph # Emmons # Seg Neutrophils % Seg Neuts % (Manual) Lymphocytes % (Manual) Seg Neutrophils # Seg Neutrophils # Man Lymphocytes # (Manual) Monocytes # (Manual) POC ABG pH ABG pH POC ABG pCO2 62.0 H POC ABG pO2 168 H ABG pO2 ABG HCO3 ABG Base Excess ABG Hemoglobin Oxyhemoglobin Sodium 147 H Potassium Chloride 107.8 H Carbon Dioxide BUN 26 H Creatinine 0.5 L Glucose 139 H POC Glucose 161 H Calcium Phosphorus Magnesium 2.40 H Direct Bilirubin AST Alkaline Phosphatase C-Reactive Protein Serum Total Protein Total Protein Albumin Prealbumin Xjmsw-2-Dqkapnefc Nsuvh-1-Wpipxhebc Gamma Globulins PEP Interpretation Triglycerides Urine pH Urine Creatinine Urine Total Protein Vancomycin Trough Digoxin Crossmatch 10/30/19 10/30/19 10/30/19 05:15 06:32 09:44 WBC 13.8 H RBC 3.59 L Hgb 10.1 L Hct 32.4 L MCV MCH MCHC 31 L RDW 17.4 H Plt Count Lymph % (Auto) 11.2 L Emmons % (Auto) 13.6 H Lymph # Emmons # 1.9 H Seg Neutrophils % 75.1 H Seg Neuts % (Manual) Lymphocytes % (Manual) Seg Neutrophils # 10.4 H Seg Neutrophils # Man Lymphocytes # (Manual) Monocytes # (Manual) POC ABG pH ABG pH POC ABG pCO2 51.7 H POC ABG pO2 111 H ABG pO2 ABG HCO3 ABG Base Excess ABG Hemoglobin Oxyhemoglobin Sodium Potassium Chloride Carbon Dioxide BUN Creatinine Glucose POC Glucose 141 H Calcium Phosphorus Magnesium Direct Bilirubin AST Alkaline Phosphatase C-Reactive Protein Serum Total Protein Total Protein Albumin Prealbumin Myayw-2-Obrukzuaf Izjlg-0-Yreqtcuvs Gamma Globulins PEP Interpretation Triglycerides Urine pH Urine Creatinine Urine Total Protein Vancomycin Trough Digoxin Crossmatch 10/30/19 10/31/19 10/31/19 18:10 04:18 04:18 WBC 11.7 H RBC 3.11 L Hgb 9.0 L Hct 27.9 L MCV MCH MCHC RDW 17.1 H Plt Count Lymph % (Auto) Emmons % (Auto) Lymph # Emmons # Seg Neutrophils % Seg Neuts % (Manual) Lymphocytes % (Manual) Seg Neutrophils # Seg Neutrophils # Man Lymphocytes # (Manual) Monocytes # (Manual) POC ABG pH ABG pH POC ABG pCO2 POC ABG pO2 ABG pO2 ABG HCO3 ABG Base Excess ABG Hemoglobin Oxyhemoglobin Sodium 148 H Potassium Chloride 108.7 H Carbon Dioxide BUN 37 H Creatinine 0.7 L Glucose 102 H POC Glucose 131 H Calcium Phosphorus Magnesium Direct Bilirubin AST Alkaline Phosphatase C-Reactive Protein Serum Total Protein Total Protein Albumin Prealbumin Yfnjq-7-Xpghptxjq Vxxhk-1-Yhtcfdzhw Gamma Globulins PEP Interpretation Triglycerides Urine pH Urine Creatinine Urine Total Protein Vancomycin Trough Digoxin Crossmatch 10/31/19 10/31/19 10/31/19 11:32 12:55 18:10 WBC RBC Hgb Hct MCV MCH MCHC RDW Plt Count Lymph % (Auto) Emmons % (Auto) Lymph # Emmons # Seg Neutrophils % Seg Neuts % (Manual) Lymphocytes % (Manual) Seg Neutrophils # Seg Neutrophils # Man Lymphocytes # (Manual) Monocytes # (Manual) POC ABG pH ABG pH POC ABG pCO2 57.9 H POC ABG pO2 135 H ABG pO2 ABG HCO3 ABG Base Excess ABG Hemoglobin Oxyhemoglobin Sodium Potassium Chloride Carbon Dioxide BUN Creatinine Glucose POC Glucose 120 H Calcium Phosphorus Magnesium Direct Bilirubin AST Alkaline Phosphatase C-Reactive Protein Serum Total Protein Total Protein Albumin Prealbumin Uixah-3-Isgzqistb Kmltv-8-Fifpfiasu Gamma Globulins PEP Interpretation Triglycerides Urine pH Urine Creatinine Urine Total Protein Vancomycin Trough 41.7 H Digoxin Crossmatch 10/31/19 11/01/19 11/01/19 23:08 05:30 05:30 WBC 14.6 H RBC 3.13 L Hgb 8.9 L Hct 27.7 L MCV MCH MCHC RDW 17.0 H Plt Count Lymph % (Auto) Emmons % (Auto) Lymph # Emmons # Seg Neutrophils % Seg Neuts % (Manual) Lymphocytes % (Manual) Seg Neutrophils # Seg Neutrophils # Man Lymphocytes # (Manual) Monocytes # (Manual) POC ABG pH ABG pH POC ABG pCO2 POC ABG pO2 ABG pO2 ABG HCO3 ABG Base Excess ABG Hemoglobin Oxyhemoglobin Sodium 149 H Potassium Chloride 109.0 H Carbon Dioxide BUN 26 H Creatinine 0.7 L Glucose 129 H POC Glucose 109 H Calcium Phosphorus Magnesium Direct Bilirubin AST Alkaline Phosphatase C-Reactive Protein Serum Total Protein Total Protein Albumin Prealbumin Ahlkl-7-Najhdoczv Gjfvn-0-Bqutgdpsd Gamma Globulins PEP Interpretation Triglycerides Urine pH Urine Creatinine Urine Total Protein Vancomycin Trough Digoxin Crossmatch 11/01/19 11/01/19 11/01/19 06:09 06:10 11:52 WBC RBC Hgb Hct MCV MCH MCHC RDW Plt Count Lymph % (Auto) Emmons % (Auto) Lymph # Emmons # Seg Neutrophils % Seg Neuts % (Manual) Lymphocytes % (Manual) Seg Neutrophils # Seg Neutrophils # Man Lymphocytes # (Manual) Monocytes # (Manual) POC ABG pH ABG pH POC ABG pCO2 51.3 H POC ABG pO2 71 L ABG pO2 ABG HCO3 ABG Base Excess ABG Hemoglobin Oxyhemoglobin Sodium Potassium Chloride Carbon Dioxide BUN Creatinine Glucose POC Glucose 113 H 106 H Calcium Phosphorus Magnesium Direct Bilirubin AST Alkaline Phosphatase C-Reactive Protein Serum Total Protein Total Protein Albumin Prealbumin Uvcvo-6-Mpffooqvy Ipuhu-2-Wohsjnvml Gamma Globulins PEP Interpretation Triglycerides Urine pH Urine Creatinine Urine Total Protein Vancomycin Trough Digoxin Crossmatch 11/01/19 11/02/19 11/02/19 18:18 03:40 03:40 WBC RBC 2.36 L Hgb 7.2 L Hct 20.8 L D MCV MCH MCHC 35 H RDW 16.8 H Plt Count Lymph % (Auto) Emmons % (Auto) Lymph # Emmons # Seg Neutrophils % Seg Neuts % (Manual) Lymphocytes % (Manual) Seg Neutrophils # Seg Neutrophils # Man Lymphocytes # (Manual) Monocytes # (Manual) POC ABG pH ABG pH POC ABG pCO2 POC ABG pO2 ABG pO2 ABG HCO3 ABG Base Excess ABG Hemoglobin Oxyhemoglobin Sodium 157 H D Potassium 3.0 L D Chloride 117.2 H Carbon Dioxide BUN 23 H Creatinine 0.6 L Glucose 101 H POC Glucose 120 H Calcium 6.4 L D Phosphorus Magnesium Direct Bilirubin AST Alkaline Phosphatase C-Reactive Protein Serum Total Protein Total Protein Albumin Prealbumin Yxiav-1-Kxmfjjyzk Lmnlq-8-Dtugshitw Gamma Globulins PEP Interpretation Triglycerides Urine pH Urine Creatinine Urine Total Protein Vancomycin Trough Digoxin Crossmatch 11/02/19 11/02/19 11/02/19 04:48 05:30 12:43 WBC RBC Hgb Hct MCV MCH MCHC RDW Plt Count Lymph % (Auto) Emmons % (Auto) Lymph # Emmons # Seg Neutrophils % Seg Neuts % (Manual) Lymphocytes % (Manual) Seg Neutrophils # Seg Neutrophils # Man Lymphocytes # (Manual) Monocytes # (Manual) POC ABG pH ABG pH POC ABG pCO2 50.1 H POC ABG pO2 74 L ABG pO2 ABG HCO3 ABG Base Excess ABG Hemoglobin Oxyhemoglobin Sodium 149 H D Potassium Chloride 110.0 H Carbon Dioxide BUN 23 H Creatinine 0.6 L Glucose POC Glucose 109 H Calcium 8.1 L D Phosphorus Magnesium 2.40 H Direct Bilirubin AST Alkaline Phosphatase C-Reactive Protein Serum Total Protein Total Protein Albumin Prealbumin Vkvfa-8-Vzzvqvhvz Lqvpd-1-Oilmmpoya Gamma Globulins PEP Interpretation Triglycerides Urine pH Urine Creatinine Urine Total Protein Vancomycin Trough Digoxin Crossmatch 11/03/19 11/03/19 11/03/19 03:42 03:42 04:13 WBC RBC 2.93 L Hgb 8.5 L Hct 25.8 L MCV MCH MCHC RDW 16.9 H Plt Count Lymph % (Auto) Emmons % (Auto) Lymph # Emmons # Seg Neutrophils % Seg Neuts % (Manual) Lymphocytes % (Manual) Seg Neutrophils # Seg Neutrophils # Man Lymphocytes # (Manual) Monocytes # (Manual) POC ABG pH 7.540 H ABG pH POC ABG pCO2 POC ABG pO2 51 L ABG pO2 ABG HCO3 ABG Base Excess ABG Hemoglobin Oxyhemoglobin Sodium 147 H Potassium 3.5 L D Chloride 108.6 H Carbon Dioxide BUN Creatinine 0.6 L Glucose 109 H POC Glucose Calcium 8.3 L Phosphorus Magnesium Direct Bilirubin AST Alkaline Phosphatase C-Reactive Protein Serum Total Protein Total Protein Albumin Prealbumin Eoxvp-1-Wzlkyygho Torxx-8-Ufohxgpzd Gamma Globulins PEP Interpretation Triglycerides Urine pH Urine Creatinine Urine Total Protein Vancomycin Trough Digoxin Crossmatch 11/03/19 11/03/19 11/03/19 04:28 12:04 23:02 WBC RBC Hgb Hct MCV MCH MCHC RDW Plt Count Lymph % (Auto) Emmons % (Auto) Lymph # Emmons # Seg Neutrophils % Seg Neuts % (Manual) Lymphocytes % (Manual) Seg Neutrophils # Seg Neutrophils # Man Lymphocytes # (Manual) Monocytes # (Manual) POC ABG pH ABG pH POC ABG pCO2 45.4 H POC ABG pO2 ABG pO2 ABG HCO3 ABG Base Excess ABG Hemoglobin Oxyhemoglobin Sodium Potassium Chloride Carbon Dioxide BUN Creatinine Glucose POC Glucose 109 H 111 H Calcium Phosphorus Magnesium Direct Bilirubin AST Alkaline Phosphatase C-Reactive Protein Serum Total Protein Total Protein Albumin Prealbumin Equjc-2-Rdfknvvbm Vkvev-3-Dneawmsyq Gamma Globulins PEP Interpretation Triglycerides Urine pH Urine Creatinine Urine Total Protein Vancomycin Trough Digoxin Crossmatch 11/04/19 11/04/19 11/04/19 05:00 05:00 05:19 WBC RBC 2.96 L Hgb 8.6 L Hct 25.5 L MCV MCH MCHC RDW 16.7 H Plt Count Lymph % (Auto) Emmons % (Auto) Lymph # Emmons # Seg Neutrophils % Seg Neuts % (Manual) Lymphocytes % (Manual) Seg Neutrophils # Seg Neutrophils # Man Lymphocytes # (Manual) Monocytes # (Manual) POC ABG pH ABG pH POC ABG pCO2 POC ABG pO2 ABG pO2 ABG HCO3 ABG Base Excess ABG Hemoglobin Oxyhemoglobin Sodium Potassium 3.5 L Chloride Carbon Dioxide BUN Creatinine 0.5 L Glucose 111 H POC Glucose 106 H Calcium 8.1 L Phosphorus Magnesium Direct Bilirubin AST Alkaline Phosphatase C-Reactive Protein Serum Total Protein Total Protein Albumin Prealbumin Jotkh-9-Emjyhygcc Bfcvq-6-Nsguxrmib Gamma Globulins PEP Interpretation Triglycerides Urine pH Urine Creatinine Urine Total Protein Vancomycin Trough Digoxin Crossmatch 11/04/19 11/05/19 11/05/19 12:40 00:28 04:19 WBC 12.4 H RBC 2.98 L Hgb 8.5 L Hct 25.5 L MCV MCH MCHC RDW 16.6 H Plt Count Lymph % (Auto) Emmons % (Auto) Lymph # Emmons # Seg Neutrophils % Seg Neuts % (Manual) Lymphocytes % (Manual) Seg Neutrophils # Seg Neutrophils # Man Lymphocytes # (Manual) Monocytes # (Manual) POC ABG pH ABG pH POC ABG pCO2 POC ABG pO2 ABG pO2 ABG HCO3 ABG Base Excess ABG Hemoglobin Oxyhemoglobin Sodium Potassium Chloride Carbon Dioxide BUN Creatinine Glucose POC Glucose 109 H 132 H Calcium Phosphorus Magnesium Direct Bilirubin AST Alkaline Phosphatase C-Reactive Protein Serum Total Protein Total Protein Albumin Prealbumin Pqcyq-4-Tixblagra Lxmfe-2-Yyhwnxric Gamma Globulins PEP Interpretation Triglycerides Urine pH Urine Creatinine Urine Total Protein Vancomycin Trough Digoxin Crossmatch 11/05/19 11/05/19 11/05/19 04:19 05:40 13:14 WBC RBC Hgb Hct MCV MCH MCHC RDW Plt Count Lymph % (Auto) Emmons % (Auto) Lymph # Emmons # Seg Neutrophils % Seg Neuts % (Manual) Lymphocytes % (Manual) Seg Neutrophils # Seg Neutrophils # Man Lymphocytes # (Manual) Monocytes # (Manual) POC ABG pH ABG pH POC ABG pCO2 POC ABG pO2 ABG pO2 ABG HCO3 ABG Base Excess ABG Hemoglobin Oxyhemoglobin Sodium Potassium 3.4 L Chloride Carbon Dioxide BUN Creatinine 0.4 L Glucose 106 H POC Glucose 136 H 145 H Calcium 8.2 L Phosphorus Magnesium Direct Bilirubin AST Alkaline Phosphatase C-Reactive Protein Serum Total Protein Total Protein Albumin Prealbumin [id number]-5-Efweiiirx Fauuz-2-Aoygyerlc Gamma Globulins PEP Interpretation Triglycerides Urine pH Urine Creatinine Urine Total Protein Vancomycin Trough Digoxin Crossmatch 11/05/19 11/05/19 11/06/19 18:29 23:42 05:00 WBC 12.2 H RBC 2.89 L Hgb 8.2 L Hct 24.9 L MCV MCH MCHC RDW 16.4 H Plt Count Lymph % (Auto) Emmons % (Auto) Lymph # Emmons # Seg Neutrophils % Seg Neuts % (Manual) Lymphocytes % (Manual) Seg Neutrophils # Seg Neutrophils # Man Lymphocytes # (Manual) Monocytes # (Manual) POC ABG pH ABG pH POC ABG pCO2 POC ABG pO2 ABG pO2 ABG HCO3 ABG Base Excess ABG Hemoglobin Oxyhemoglobin Sodium Potassium Chloride Carbon Dioxide BUN Creatinine Glucose POC Glucose 138 H 117 H Calcium Phosphorus Magnesium Direct Bilirubin AST Alkaline Phosphatase C-Reactive Protein Serum Total Protein Total Protein Albumin Prealbumin Tttbl-0-Dhnarwvfc Vqziz-7-Izdewksxx Gamma Globulins PEP Interpretation Triglycerides Urine pH Urine Creatinine Urine Total Protein Vancomycin Trough Digoxin Crossmatch 11/06/19 11/06/19 11/06/19 05:00 05:22 17:39 WBC RBC Hgb Hct MCV MCH MCHC RDW Plt Count Lymph % (Auto) Emmons % (Auto) Lymph # Emmons # Seg Neutrophils % Seg Neuts % (Manual) Lymphocytes % (Manual) Seg Neutrophils # Seg Neutrophils # Man Lymphocytes # (Manual) Monocytes # (Manual) POC ABG pH ABG pH POC ABG pCO2 POC ABG pO2 ABG pO2 ABG HCO3 ABG Base Excess ABG Hemoglobin Oxyhemoglobin Sodium Potassium Chloride Carbon Dioxide BUN Creatinine 0.4 L Glucose 114 H POC Glucose 121 H 110 H Calcium 8.2 L Phosphorus Magnesium Direct Bilirubin AST Alkaline Phosphatase C-Reactive Protein Serum Total Protein Total Protein Albumin Prealbumin Kiadn-1-Skvczusbb Judkc-2-Uboqwpnio Gamma Globulins PEP Interpretation Triglycerides Urine pH Urine Creatinine Urine Total Protein Vancomycin Trough Digoxin Crossmatch 11/06/19 11/07/19 11/07/19 23:29 04:06 04:06 WBC 13.0 H RBC 2.80 L Hgb 7.9 L Hct 24.0 L MCV MCH MCHC RDW 16.5 H Plt Count Lymph % (Auto) 7.0 L Emmons % (Auto) Lymph # 0.9 L Emmons # Seg Neutrophils % 86.3 H Seg Neuts % (Manual) Lymphocytes % (Manual) Seg Neutrophils # 11.2 H Seg Neutrophils # Man Lymphocytes # (Manual) Monocytes # (Manual) POC ABG pH ABG pH POC ABG pCO2 POC ABG pO2 ABG pO2 ABG HCO3 ABG Base Excess ABG Hemoglobin Oxyhemoglobin Sodium Potassium Chloride Carbon Dioxide BUN Creatinine 0.4 L Glucose 110 H POC Glucose 113 H Calcium 8.2 L Phosphorus Magnesium Direct Bilirubin AST Alkaline Phosphatase C-Reactive Protein Serum Total Protein Total Protein Albumin Prealbumin Zcanb-5-Ogstzvayx Fjcab-0-Qdnujdfgo Gamma Globulins PEP Interpretation Triglycerides Urine pH Urine Creatinine Urine Total Protein Vancomycin Trough Digoxin Crossmatch 11/07/19 11/07/19 11/07/19 05:43 12:47 18:19 WBC RBC Hgb Hct MCV MCH MCHC RDW Plt Count Lymph % (Auto) Emmons % (Auto) Lymph # Emmons # Seg Neutrophils % Seg Neuts % (Manual) Lymphocytes % (Manual) Seg Neutrophils # Seg Neutrophils # Man Lymphocytes # (Manual) Monocytes # (Manual) POC ABG pH ABG pH POC ABG pCO2 POC ABG pO2 ABG pO2 ABG HCO3 ABG Base Excess ABG Hemoglobin Oxyhemoglobin Sodium Potassium Chloride Carbon Dioxide BUN Creatinine Glucose POC Glucose 114 H 120 H 112 H Calcium Phosphorus Magnesium Direct Bilirubin AST Alkaline Phosphatase C-Reactive Protein Serum Total Protein Total Protein Albumin Prealbumin Lphgu-2-Odljmyinc Mffzt-9-Ebtzzweql Gamma Globulins PEP Interpretation Triglycerides Urine pH Urine Creatinine Urine Total Protein Vancomycin Trough Digoxin Crossmatch 11/08/19 11/08/19 11/08/19 03:45 03:45 11:43 WBC 12.7 H RBC 2.82 L Hgb 7.8 L Hct 24.4 L MCV MCH MCHC RDW 16.5 H Plt Count Lymph % (Auto) 9.4 L Emmons % (Auto) Lymph # Emmons # 0.9 H Seg Neutrophils % 83.0 H Seg Neuts % (Manual) Lymphocytes % (Manual) Seg Neutrophils # 10.6 H Seg Neutrophils # Man Lymphocytes # (Manual) Monocytes # (Manual) POC ABG pH ABG pH POC ABG pCO2 POC ABG pO2 ABG pO2 ABG HCO3 ABG Base Excess ABG Hemoglobin Oxyhemoglobin Sodium Potassium Chloride Carbon Dioxide BUN Creatinine 0.4 L Glucose 107 H POC Glucose 118 H Calcium Phosphorus Magnesium Direct Bilirubin AST Alkaline Phosphatase C-Reactive Protein Serum Total Protein Total Protein Albumin Prealbumin Wcnvk-7-Pvflbddbj Chstj-5-Iwrfxvsop Gamma Globulins PEP Interpretation Triglycerides Urine pH Urine Creatinine Urine Total Protein Vancomycin Trough Digoxin Crossmatch 11/08/19 11/09/19 11/09/19 23:45 12:41 12:56 WBC RBC Hgb Hct MCV MCH MCHC RDW Plt Count Lymph % (Auto) Emmons % (Auto) Lymph # Emmons # Seg Neutrophils % Seg Neuts % (Manual) Lymphocytes % (Manual) Seg Neutrophils # Seg Neutrophils # Man Lymphocytes # (Manual) Monocytes # (Manual) POC ABG pH ABG pH POC ABG pCO2 POC ABG pO2 ABG pO2 ABG HCO3 ABG Base Excess ABG Hemoglobin Oxyhemoglobin Sodium Potassium Chloride Carbon Dioxide BUN Creatinine Glucose POC Glucose 113 H 107 H 122 H Calcium Phosphorus Magnesium Direct Bilirubin AST Alkaline Phosphatase C-Reactive Protein Serum Total Protein Total Protein Albumin Prealbumin Vvqze-7-Tugdvnzvn Gibkg-8-Jqrmjkkpb Gamma Globulins PEP Interpretation Triglycerides Urine pH Urine Creatinine Urine Total Protein Vancomycin Trough Digoxin Crossmatch 11/10/19 11/10/19 11/11/19 05:12 12:20 12:13 WBC RBC Hgb Hct MCV MCH MCHC RDW Plt Count Lymph % (Auto) Emmons % (Auto) Lymph # Emmons # Seg Neutrophils % Seg Neuts % (Manual) Lymphocytes % (Manual) Seg Neutrophils # Seg Neutrophils # Man Lymphocytes # (Manual) Monocytes # (Manual) POC ABG pH ABG pH POC ABG pCO2 POC ABG pO2 ABG pO2 ABG HCO3 ABG Base Excess ABG Hemoglobin Oxyhemoglobin Sodium Potassium Chloride Carbon Dioxide BUN Creatinine Glucose POC Glucose 127 H 125 H 107 H Calcium Phosphorus Magnesium Direct Bilirubin AST Alkaline Phosphatase C-Reactive Protein Serum Total Protein Total Protein Albumin Prealbumin Slyva-2-Nqvuqlezz Prjks-8-Mcngdjnss Gamma Globulins PEP Interpretation Triglycerides Urine pH Urine Creatinine Urine Total Protein Vancomycin Trough Digoxin Crossmatch 11/11/19 11/11/19 11/12/19 17:29 22:20 06:00 WBC RBC 2.77 L Hgb 7.8 L Hct 23.4 L MCV MCH MCHC RDW 16.6 H Plt Count Lymph % (Auto) 11.9 L Emmons % (Auto) 8.9 H Lymph # Emmons # 0.9 H Seg Neutrophils % 78.2 H Seg Neuts % (Manual) Lymphocytes % (Manual) Seg Neutrophils # 8.2 H Seg Neutrophils # Man Lymphocytes # (Manual) Monocytes # (Manual) POC ABG pH ABG pH POC ABG pCO2 POC ABG pO2 ABG pO2 ABG HCO3 ABG Base Excess ABG Hemoglobin Oxyhemoglobin Sodium Potassium Chloride Carbon Dioxide BUN Creatinine Glucose POC Glucose 120 H 109 H Calcium Phosphorus Magnesium Direct Bilirubin AST Alkaline Phosphatase C-Reactive Protein Serum Total Protein Total Protein Albumin Prealbumin Joedm-1-Ywvrumkfe Aqpqy-4-Fncfghpgv Gamma Globulins PEP Interpretation Triglycerides Urine pH Urine Creatinine Urine Total Protein Vancomycin Trough Digoxin Crossmatch 11/12/19 11/12/19 11/12/19 07:52 11:58 23:44 WBC RBC Hgb Hct MCV MCH MCHC RDW Plt Count Lymph % (Auto) Emmons % (Auto) Lymph # Emmons # Seg Neutrophils % Seg Neuts % (Manual) Lymphocytes % (Manual) Seg Neutrophils # Seg Neutrophils # Man Lymphocytes # (Manual) Monocytes # (Manual) POC ABG pH ABG pH POC ABG pCO2 POC ABG pO2 ABG pO2 ABG HCO3 ABG Base Excess ABG Hemoglobin Oxyhemoglobin Sodium Potassium Chloride Carbon Dioxide BUN Creatinine Glucose POC Glucose 120 H 140 H 116 H Calcium Phosphorus Magnesium Direct Bilirubin AST Alkaline Phosphatase C-Reactive Protein Serum Total Protein Total Protein Albumin Prealbumin Wfjlu-9-Qnplchpzj Gljuc-1-Hyijjvenj Gamma Globulins PEP Interpretation Triglycerides Urine pH Urine Creatinine Urine Total Protein Vancomycin Trough Digoxin Crossmatch 11/13/19 11/13/19 11/13/19 04:33 04:33 13:43 WBC 11.2 H RBC 2.90 L Hgb 8.1 L Hct 24.5 L MCV MCH MCHC RDW 16.5 H Plt Count Lymph % (Auto) 10.1 L Emmons % (Auto) 7.6 H Lymph # 1.1 L Emmons # 0.9 H Seg Neutrophils % 81.1 H Seg Neuts % (Manual) Lymphocytes % (Manual) Seg Neutrophils # 9.1 H Seg Neutrophils # Man Lymphocytes # (Manual) Monocytes # (Manual) POC ABG pH ABG pH POC ABG pCO2 POC ABG pO2 ABG pO2 ABG HCO3 ABG Base Excess ABG Hemoglobin Oxyhemoglobin Sodium 135 L Potassium Chloride 91.9 L Carbon Dioxide BUN Creatinine 0.6 L Glucose POC Glucose 122 H Calcium Phosphorus Magnesium Direct Bilirubin AST Alkaline Phosphatase C-Reactive Protein Serum Total Protein Total Protein Albumin Prealbumin Tfclt-7-Ifctjmfab Lwbzh-0-Dvfcpoudy Gamma Globulins PEP Interpretation Triglycerides Urine pH Urine Creatinine Urine Total Protein Vancomycin Trough Digoxin Crossmatch 11/13/19 11/14/19 11/15/19 17:57 12:35 07:10 WBC 14.8 H RBC 2.89 L Hgb 7.8 L Hct 24.2 L MCV MCH 27 L MCHC RDW 16.9 H Plt Count Lymph % (Auto) Emmons % (Auto) Lymph # Emmons # Seg Neutrophils % Seg Neuts % (Manual) Lymphocytes % (Manual) Seg Neutrophils # Seg Neutrophils # Man Lymphocytes # (Manual) Monocytes # (Manual) POC ABG pH ABG pH POC ABG pCO2 POC ABG pO2 ABG pO2 ABG HCO3 ABG Base Excess ABG Hemoglobin Oxyhemoglobin Sodium Potassium Chloride Carbon Dioxide BUN Creatinine Glucose POC Glucose 127 H 148 H Calcium Phosphorus Magnesium Direct Bilirubin AST Alkaline Phosphatase C-Reactive Protein Serum Total Protein Total Protein Albumin Prealbumin Bfxpc-0-Qeyjtxzle Wjjao-7-Omdiyghsw Gamma Globulins PEP Interpretation Triglycerides Urine pH Urine Creatinine Urine Total Protein Vancomycin Trough Digoxin Crossmatch 11/15/19 11/15/19 11/16/19 07:10 20:16 10:26 WBC 14.4 H RBC 2.79 L Hgb 7.6 L Hct 23.5 L MCV MCH 27 L MCHC RDW 17.0 H Plt Count Lymph % (Auto) Emmons % (Auto) Lymph # Emmons # Seg Neutrophils % Seg Neuts % (Manual) Lymphocytes % (Manual) Seg Neutrophils # Seg Neutrophils # Man Lymphocytes # (Manual) Monocytes # (Manual) POC ABG pH ABG pH POC ABG pCO2 POC ABG pO2 ABG pO2 ABG HCO3 ABG Base Excess ABG Hemoglobin Oxyhemoglobin Sodium 133 L 136 L Potassium 3.5 L Chloride 93.7 L 97.4 L Carbon Dioxide BUN Creatinine 0.6 L 0.6 L Glucose 130 H POC Glucose Calcium Phosphorus Magnesium Direct Bilirubin AST Alkaline Phosphatase C-Reactive Protein Serum Total Protein Total Protein Albumin Prealbumin Hcsjt-1-Ulmuxyzpd Spoyb-2-Fromrvmqx Gamma Globulins PEP Interpretation Triglycerides Urine pH Urine Creatinine Urine Total Protein Vancomycin Trough Digoxin Crossmatch 11/16/19 11/17/19 11/17/19 13:01 00:40 07:22 WBC 14.0 H RBC 2.71 L Hgb 7.4 L Hct 22.8 L MCV MCH 27 L MCHC RDW 17.2 H Plt Count Lymph % (Auto) Emmons % (Auto) Lymph # Emmons # Seg Neutrophils % Seg Neuts % (Manual) Lymphocytes % (Manual) Seg Neutrophils # Seg Neutrophils # Man Lymphocytes # (Manual) Monocytes # (Manual) POC ABG pH ABG pH POC ABG pCO2 POC ABG pO2 ABG pO2 ABG HCO3 ABG Base Excess ABG Hemoglobin Oxyhemoglobin Sodium Potassium Chloride Carbon Dioxide BUN Creatinine Glucose POC Glucose 117 H 124 H Calcium Phosphorus Magnesium Direct Bilirubin AST Alkaline Phosphatase C-Reactive Protein Serum Total Protein Total Protein Albumin Prealbumin Yzzwq-8-Sguzojlve Kzchc-9-Dmnhjgelr Gamma Globulins PEP Interpretation Triglycerides Urine pH Urine Creatinine Urine Total Protein Vancomycin Trough Digoxin Crossmatch 11/17/19 11/17/19 11/17/19 07:22 12:00 17:57 WBC RBC Hgb Hct MCV MCH MCHC RDW Plt Count Lymph % (Auto) Emmons % (Auto) Lymph # Emmons # Seg Neutrophils % Seg Neuts % (Manual) Lymphocytes % (Manual) Seg Neutrophils # Seg Neutrophils # Man Lymphocytes # (Manual) Monocytes # (Manual) POC ABG pH ABG pH POC ABG pCO2 POC ABG pO2 ABG pO2 ABG HCO3 ABG Base Excess ABG Hemoglobin Oxyhemoglobin Sodium 136 L Potassium Chloride 96.1 L Carbon Dioxide BUN 7 L Creatinine 0.5 L Glucose POC Glucose 130 H 111 H Calcium Phosphorus Magnesium Direct Bilirubin AST Alkaline Phosphatase C-Reactive Protein Serum Total Protein Total Protein Albumin Prealbumin Btnfe-9-Eqotjudzn Ndkvy-1-Izdcwiqun Gamma Globulins PEP Interpretation Triglycerides Urine pH Urine Creatinine Urine Total Protein Vancomycin Trough Digoxin Crossmatch 11/18/19 11/18/19 11/18/19 06:03 12:12 17:54 WBC RBC Hgb Hct MCV MCH MCHC RDW Plt Count Lymph % (Auto) Emmons % (Auto) Lymph # Emmons # Seg Neutrophils % Seg Neuts % (Manual) Lymphocytes % (Manual) Seg Neutrophils # Seg Neutrophils # Man Lymphocytes # (Manual) Monocytes # (Manual) POC ABG pH ABG pH POC ABG pCO2 POC ABG pO2 ABG pO2 ABG HCO3 ABG Base Excess ABG Hemoglobin Oxyhemoglobin Sodium Potassium Chloride Carbon Dioxide BUN Creatinine Glucose POC Glucose 113 H 124 H 128 H Calcium Phosphorus Magnesium Direct Bilirubin AST Alkaline Phosphatase C-Reactive Protein Serum Total Protein Total Protein Albumin Prealbumin Rwegv-2-Wpmyupqam Nxury-0-Jajmvyzmm Gamma Globulins PEP Interpretation Triglycerides Urine pH Urine Creatinine Urine Total Protein Vancomycin Trough Digoxin Crossmatch 11/19/19 11/19/19 11/20/19 00:54 08:03 11:31 WBC RBC Hgb Hct MCV MCH MCHC RDW Plt Count Lymph % (Auto) Emmons % (Auto) Lymph # Emmons # Seg Neutrophils % Seg Neuts % (Manual) Lymphocytes % (Manual) Seg Neutrophils # Seg Neutrophils # Man Lymphocytes # (Manual) Monocytes # (Manual) POC ABG pH ABG pH POC ABG pCO2 POC ABG pO2 ABG pO2 ABG HCO3 ABG Base Excess ABG Hemoglobin Oxyhemoglobin Sodium Potassium Chloride Carbon Dioxide BUN Creatinine Glucose POC Glucose 130 H 122 H 136 H Calcium Phosphorus Magnesium Direct Bilirubin AST Alkaline Phosphatase C-Reactive Protein Serum Total Protein Total Protein Albumin Prealbumin Dksgr-1-Bihsytrtp Xkfie-2-Sqictrqqd Gamma Globulins PEP Interpretation Triglycerides Urine pH Urine Creatinine Urine Total Protein Vancomycin Trough Digoxin Crossmatch 11/20/19 11/20/19 11/20/19 17:17 Unknown Unknown WBC 17.8 H RBC 2.70 L Hgb 7.3 L Hct 22.5 L MCV 83 L MCH 27 L MCHC RDW 17.0 H Plt Count Lymph % (Auto) Emmons % (Auto) Lymph # Emmons # Seg Neutrophils % Seg Neuts % (Manual) Lymphocytes % (Manual) Seg Neutrophils # Seg Neutrophils # Man Lymphocytes # (Manual) Monocytes # (Manual) POC ABG pH ABG pH POC ABG pCO2 POC ABG pO2 ABG pO2 ABG HCO3 ABG Base Excess ABG Hemoglobin Oxyhemoglobin Sodium 132 L Potassium 3.5 L Chloride 95.4 L Carbon Dioxide 21 L BUN Creatinine 0.6 L Glucose 108 H POC Glucose 126 H Calcium Phosphorus Magnesium Direct Bilirubin AST Alkaline Phosphatase C-Reactive Protein Serum Total Protein Total Protein Albumin Prealbumin Jyhjc-4-Havszynlw Vivxy-8-Kcrkxjxwz Gamma Globulins PEP Interpretation Triglycerides Urine pH Urine Creatinine Urine Total Protein Vancomycin Trough Digoxin Crossmatch 11/21/19 11/21/19 11/21/19 07:40 07:40 12:29 WBC 15.1 H RBC 2.61 L Hgb 7.0 L Hct 21.5 L MCV 82 L MCH 27 L MCHC RDW 17.0 H Plt Count Lymph % (Auto) 9.0 L Emmons % (Auto) 7.7 H Lymph # Emmons # 1.2 H Seg Neutrophils % 81.5 H Seg Neuts % (Manual) Lymphocytes % (Manual) Seg Neutrophils # 12.3 H Seg Neutrophils # Man Lymphocytes # (Manual) Monocytes # (Manual) POC ABG pH ABG pH POC ABG pCO2 POC ABG pO2 ABG pO2 ABG HCO3 ABG Base Excess ABG Hemoglobin Oxyhemoglobin Sodium Potassium Chloride Carbon Dioxide BUN Creatinine 0.5 L Glucose POC Glucose 118 H Calcium Phosphorus Magnesium Direct Bilirubin AST Alkaline Phosphatase C-Reactive Protein Serum Total Protein Total Protein Albumin Prealbumin Tfsgo-9-Squqfjpxa Tsxik-7-Qynfaveym Gamma Globulins PEP Interpretation Triglycerides Urine pH Urine Creatinine Urine Total Protein Vancomycin Trough Digoxin Crossmatch 11/21/19 11/22/19 11/23/19 13:32 08:13 11:48 WBC 13.7 H RBC 2.99 L Hgb 8.2 L Hct 24.7 L MCV 83 L MCH 27 L MCHC RDW 16.5 H Plt Count Lymph % (Auto) 7.8 L Emmons % (Auto) 7.5 H Lymph # 1.1 L Emmons # 1.0 H Seg Neutrophils % 83.3 H Seg Neuts % (Manual) Lymphocytes % (Manual) Seg Neutrophils # 11.4 H Seg Neutrophils # Man Lymphocytes # (Manual) Monocytes # (Manual) POC ABG pH ABG pH POC ABG pCO2 POC ABG pO2 ABG pO2 ABG HCO3 ABG Base Excess ABG Hemoglobin Oxyhemoglobin Sodium Potassium Chloride Carbon Dioxide BUN Creatinine Glucose POC Glucose 159 H Calcium Phosphorus Magnesium Direct Bilirubin AST Alkaline Phosphatase C-Reactive Protein Serum Total Protein Total Protein Albumin Prealbumin Fdfkk-9-Uidvsuzqd Cgaho-5-Mqujbttzg Gamma Globulins PEP Interpretation Triglycerides Urine pH Urine Creatinine Urine Total Protein Vancomycin Trough Digoxin Crossmatch See Detail 11/23/19 11/24/19 11/24/19 16:41 17:19 17:55 WBC 12.5 H RBC 2.94 L Hgb 8.0 L Hct 24.0 L MCV 82 L MCH 27 L MCHC RDW 16.4 H Plt Count Lymph % (Auto) Emmons % (Auto) Lymph # Emmons # Seg Neutrophils % Seg Neuts % (Manual) Lymphocytes % (Manual) Seg Neutrophils # Seg Neutrophils # Man Lymphocytes # (Manual) Monocytes # (Manual) POC ABG pH ABG pH POC ABG pCO2 POC ABG pO2 ABG pO2 ABG HCO3 ABG Base Excess ABG Hemoglobin Oxyhemoglobin Sodium Potassium Chloride Carbon Dioxide BUN Creatinine Glucose POC Glucose 131 H 127 H Calcium Phosphorus Magnesium Direct Bilirubin AST Alkaline Phosphatase C-Reactive Protein Serum Total Protein Total Protein Albumin Prealbumin Yybed-4-Nnjwwdsdx Sxjki-9-Vptxhdrvi Gamma Globulins PEP Interpretation Triglycerides Urine pH Urine Creatinine Urine Total Protein Vancomycin Trough Digoxin Crossmatch 11/24/19 11/25/19 11/25/19 17:55 07:23 07:23 WBC 13.6 H RBC 3.03 L Hgb 8.2 L Hct 24.6 L MCV 81 L MCH 27 L MCHC RDW 16.8 H Plt Count 441 H Lymph % (Auto) 10.3 L Emmons % (Auto) Lymph # Emmons # 0.9 H Seg Neutrophils % 81.2 H Seg Neuts % (Manual) Lymphocytes % (Manual) Seg Neutrophils # 11.1 H Seg Neutrophils # Man Lymphocytes # (Manual) Monocytes # (Manual) POC ABG pH ABG pH POC ABG pCO2 POC ABG pO2 ABG pO2 ABG HCO3 ABG Base Excess ABG Hemoglobin Oxyhemoglobin Sodium 135 L Potassium 3.3 L 3.4 L Chloride 97.3 L 95.0 L Carbon Dioxide BUN 7 L 5 L Creatinine 0.5 L 0.4 L Glucose 107 H POC Glucose Calcium Phosphorus Magnesium Direct Bilirubin AST Alkaline Phosphatase C-Reactive Protein Serum Total Protein Total Protein Albumin Prealbumin Daujj-8-Rrlvdwzsz Rhbpc-3-Pjhchcnyy Gamma Globulins PEP Interpretation Triglycerides Urine pH Urine Creatinine Urine Total Protein Vancomycin Trough Digoxin Crossmatch 11/25/19 11/26/19 11/26/19 16:58 11:35 17:46 WBC RBC Hgb Hct MCV MCH MCHC RDW Plt Count Lymph % (Auto) Emmons % (Auto) Lymph # Emmons # Seg Neutrophils % Seg Neuts % (Manual) Lymphocytes % (Manual) Seg Neutrophils # Seg Neutrophils # Man Lymphocytes # (Manual) Monocytes # (Manual) POC ABG pH ABG pH POC ABG pCO2 POC ABG pO2 ABG pO2 ABG HCO3 ABG Base Excess ABG Hemoglobin Oxyhemoglobin Sodium Potassium Chloride Carbon Dioxide BUN Creatinine Glucose POC Glucose 135 H 135 H 219 H Calcium Phosphorus Magnesium Direct Bilirubin AST Alkaline Phosphatase C-Reactive Protein Serum Total Protein Total Protein Albumin Prealbumin Ceopr-5-Kzgjjpmpp Xulab-0-[place] Gamma Globulins PEP Interpretation Triglycerides Urine pH Urine Creatinine Urine Total Protein Vancomycin Trough Digoxin Crossmatch 11/27/19 11/27/19 11/27/19 12:08 17:13 23:59 WBC RBC Hgb Hct MCV MCH MCHC RDW Plt Count Lymph % (Auto) Emmons % (Auto) Lymph # Emmons # Seg Neutrophils % Seg Neuts % (Manual) Lymphocytes % (Manual) Seg Neutrophils # Seg Neutrophils # Man Lymphocytes # (Manual) Monocytes # (Manual) POC ABG pH ABG pH POC ABG pCO2 POC ABG pO2 ABG pO2 ABG HCO3 ABG Base Excess ABG Hemoglobin Oxyhemoglobin Sodium Potassium Chloride Carbon Dioxide BUN Creatinine Glucose POC Glucose 186 H 137 H 194 H Calcium Phosphorus Magnesium Direct Bilirubin AST Alkaline Phosphatase C-Reactive Protein Serum Total Protein Total Protein Albumin Prealbumin Pxvau-8-Lqcyqnixh Xojsx-1-Ztcxclsjx Gamma Globulins PEP Interpretation Triglycerides Urine pH Urine Creatinine Urine Total Protein Vancomycin Trough Digoxin Crossmatch 11/28/19 11/28/19 11/28/19 05:30 05:30 06:14 WBC 15.1 H RBC 2.97 L Hgb 8.0 L Hct 24.4 L MCV 82 L MCH 27 L MCHC RDW 17.0 H Plt Count Lymph % (Auto) 9.9 L Emmons % (Auto) Lymph # Emmons # 1.0 H Seg Neutrophils % 82.7 H Seg Neuts % (Manual) Lymphocytes % (Manual) Seg Neutrophils # 12.5 H Seg Neutrophils # Man Lymphocytes # (Manual) Monocytes # (Manual) POC ABG pH ABG pH POC ABG pCO2 POC ABG pO2 ABG pO2 ABG HCO3 ABG Base Excess ABG Hemoglobin Oxyhemoglobin Sodium 136 L Potassium 3.1 L Chloride 96.3 L Carbon Dioxide BUN 6 L Creatinine 0.5 L Glucose POC Glucose 116 H Calcium Phosphorus Magnesium 1.60 L Direct Bilirubin AST Alkaline Phosphatase C-Reactive Protein Serum Total Protein Total Protein 6.2 L Albumin 2.2 L Prealbumin Rsnyz-9-Kubkusdou Cfjsb-2-Ptesfpgnb Gamma Globulins PEP Interpretation Triglycerides Urine pH Urine Creatinine Urine Total Protein Vancomycin Trough Digoxin Crossmatch 11/28/19 11/28/19 11/29/19 08:40 17:05 07:38 WBC RBC Hgb Hct MCV MCH MCHC RDW Plt Count Lymph % (Auto) Emmons % (Auto) Lymph # Emmons # Seg Neutrophils % Seg Neuts % (Manual) Lymphocytes % (Manual) Seg Neutrophils # Seg Neutrophils # Man Lymphocytes # (Manual) Monocytes # (Manual) POC ABG pH ABG pH POC ABG pCO2 POC ABG pO2 ABG pO2 ABG HCO3 ABG Base Excess ABG Hemoglobin Oxyhemoglobin Sodium Potassium Chloride Carbon Dioxide BUN Creatinine Glucose POC Glucose 227 H 108 H 118 H Calcium Phosphorus Magnesium Direct Bilirubin AST Alkaline Phosphatase C-Reactive Protein Serum Total Protein Total Protein Albumin Prealbumin Syems-1-Ynvpsapde Wxzlo-8-Sbcadvwja Gamma Globulins PEP Interpretation Triglycerides Urine pH Urine Creatinine Urine Total Protein Vancomycin Trough Digoxin Crossmatch 11/29/19 11/30/19 11/30/19 12:00 07:08 07:08 WBC 14.9 H RBC 3.11 L Hgb 8.4 L Hct 25.1 L MCV 81 L MCH 27 L MCHC RDW 17.3 H Plt Count 460 H Lymph % (Auto) 9.3 L Emmons % (Auto) Lymph # Emmons # 1.0 H Seg Neutrophils % 83.3 H Seg Neuts % (Manual) Lymphocytes % (Manual) Seg Neutrophils # 12.4 H Seg Neutrophils # Man Lymphocytes # (Manual) Monocytes # (Manual) POC ABG pH ABG pH POC ABG pCO2 POC ABG pO2 ABG pO2 ABG HCO3 ABG Base Excess ABG Hemoglobin Oxyhemoglobin Sodium 136 L Potassium 3.5 L Chloride 95.5 L Carbon Dioxide BUN 7 L Creatinine 0.5 L Glucose 74 L POC Glucose 193 H Calcium Phosphorus Magnesium Direct Bilirubin AST Alkaline Phosphatase 138 H C-Reactive Protein Serum Total Protein Total Protein Albumin 2.2 L Prealbumin Ugzmy-6-Hsexqmoaz Wjtdd-3-Ijrjmqsaw Gamma Globulins PEP Interpretation Triglycerides Urine pH Urine Creatinine Urine Total Protein Vancomycin Trough Digoxin Crossmatch 12/01/19 12/01/19 12/01/19 05:53 05:53 12:35 WBC 11.6 H RBC 3.05 L Hgb 8.1 L Hct 24.8 L MCV 81 L MCH 27 L MCHC RDW 16.9 H Plt Count Lymph % (Auto) 12.4 L Emmons % (Auto) 8.6 H Lymph # Emmons # 1.0 H Seg Neutrophils % 78.5 H Seg Neuts % (Manual) Lymphocytes % (Manual) Seg Neutrophils # 9.1 H Seg Neutrophils # Man Lymphocytes # (Manual) Monocytes # (Manual) POC ABG pH ABG pH POC ABG pCO2 POC ABG pO2 ABG pO2 ABG HCO3 ABG Base Excess ABG Hemoglobin Oxyhemoglobin Sodium 135 L Potassium 3.4 L Chloride 97.3 L Carbon Dioxide BUN 7 L Creatinine 0.5 L Glucose POC Glucose 113 H Calcium Phosphorus Magnesium Direct Bilirubin AST Alkaline Phosphatase C-Reactive Protein Serum Total Protein Total Protein Albumin Prealbumin Wvcbf-5-Attzbdgqo Czcjs-5-Oypispxht Gamma Globulins PEP Interpretation Triglycerides Urine pH Urine Creatinine Urine Total Protein Vancomycin Trough Digoxin Crossmatch 12/02/19 12/02/19 12/03/19 11:56 16:50 13:27 WBC RBC Hgb Hct MCV MCH MCHC RDW Plt Count Lymph % (Auto) Emmons % (Auto) Lymph # Emmons # Seg Neutrophils % Seg Neuts % (Manual) Lymphocytes % (Manual) Seg Neutrophils # Seg Neutrophils # Man Lymphocytes # (Manual) Monocytes # (Manual) POC ABG pH ABG pH POC ABG pCO2 POC ABG pO2 ABG pO2 ABG HCO3 ABG Base Excess ABG Hemoglobin Oxyhemoglobin Sodium Potassium Chloride Carbon Dioxide BUN Creatinine Glucose POC Glucose 120 H 113 H 158 H Calcium Phosphorus Magnesium Direct Bilirubin AST Alkaline Phosphatase C-Reactive Protein Serum Total Protein Total Protein Albumin Prealbumin Xdyao-2-Hlcppxfei Ksqsw-5-Jyomtywlk Gamma Globulins PEP Interpretation Triglycerides Urine pH Urine Creatinine Urine Total Protein Vancomycin Trough Digoxin Crossmatch 12/03/19 12/04/19 12/04/19 18:22 00:56 11:36 WBC RBC Hgb Hct MCV MCH MCHC RDW Plt Count Lymph % (Auto) Emmons % (Auto) Lymph # Emmons # Seg Neutrophils % Seg Neuts % (Manual) Lymphocytes % (Manual) Seg Neutrophils # Seg Neutrophils # Man Lymphocytes # (Manual) Monocytes # (Manual) POC ABG pH ABG pH POC ABG pCO2 POC ABG pO2 ABG pO2 ABG HCO3 ABG Base Excess ABG Hemoglobin Oxyhemoglobin Sodium Potassium Chloride Carbon Dioxide BUN Creatinine Glucose POC Glucose 112 H 61 L 181 H Calcium Phosphorus Magnesium Direct Bilirubin AST Alkaline Phosphatase C-Reactive Protein Serum Total Protein Total Protein Albumin Prealbumin Nakdr-3-Jjeelqbgx Dlhkv-1-Leiooefrp Gamma Globulins PEP Interpretation Triglycerides Urine pH Urine Creatinine Urine Total Protein Vancomycin Trough Digoxin Crossmatch 12/04/19 12/04/19 12:20 12:20 WBC 11.9 H RBC 2.68 L Hgb 7.1 L Hct 21.9 L MCV 82 L MCH 27 L MCHC RDW 17.8 H Plt Count Lymph % (Auto) Emmons % (Auto) Lymph # Emmons # Seg Neutrophils % Seg Neuts % (Manual) Lymphocytes % (Manual) Seg Neutrophils # Seg Neutrophils # Man Lymphocytes # (Manual) Monocytes # (Manual) POC ABG pH ABG pH POC ABG pCO2 POC ABG pO2 ABG pO2 ABG HCO3 ABG Base Excess ABG Hemoglobin Oxyhemoglobin Sodium 132 L Potassium Chloride 95.6 L Carbon Dioxide BUN 8 L Creatinine 0.6 L Glucose 124 H POC Glucose Calcium Phosphorus Magnesium Direct Bilirubin AST Alkaline Phosphatase C-Reactive Protein Serum Total Protein Total Protein Albumin Prealbumin [id number] Hdapq-[id number] Gamma Globulins PEP Interpretation Triglycerides Urine pH Urine Creatinine Urine Total Protein Vancomycin Trough Digoxin Crossmatch Chest x-ray: report reviewed, image reviewed
[2019-12-04] MEDS: ENOXAPARIN 40 MG/0.4 ML INJ SUB-Q SCH (22:06)
[2019-12-04] MEDS: HYDROcodone/ACETAMINOPHEN 10-325MG TAB PO PRN (22:10)
[2019-12-05] MEDS: INSULIN LISPRO 100 UNIT/ML SUB-Q SCH ×5 (01:19→18:10)
[2019-12-05] MEDS: HYDROmorphone 2 MG/1 ML INJ IV PRN ×3 (02:32→14:15)
[2019-12-05] MEDS: SODIUM HYPOCHLORITE, DAKIN'S 1/2 STRENGTH (0.25%) 473 ML TOPICAL SOLN TP PRN ×2 (02:59→18:05)
[2019-12-05] MEDS: HYDROcodone/ACETAMINOPHEN 10-325MG TAB PO PRN ×2 (03:31→11:54)
[2019-12-05] MEDS: METOPROLOL TARTRATE 50 MG TAB PO SCH ×3 (06:11→21:47)
[2019-12-05] MEDS: BUDESONIDE 0.5 MG/2 ML NEBU IH SCH ×2 (07:55→20:36)
[2019-12-05] MEDS: IPRATROPIUM/ALBUTEROL SULFATE 3 ML AMPUL.NEB IH SCH ×3 (07:55→20:36)
[2019-12-05] MEDS: ARFORMOTEROL 15 MCG/2 ML NEBU IH SCH ×2 (07:55→20:36)
[2019-12-05] MEDS: AMIODARONE 200 MG TAB PO SCH (10:05)
[2019-12-05] MEDS: PANTOPRAZOLE 40 MG TAB PO SCH (10:05)
[2019-12-05] MEDS: CITALOPRAM 20 MG TAB PO SCH (10:05)
[2019-12-05 10:20] LABS: Hematocrit 22.2 % (35.5-45.6); Hemoglobin 7.2 gm/dl (11.8-15.2); Mean Corpuscular HGB Conc 33 % (32-34); Mean Corpuscular Volume 82 fl (84-94); Platelet Count 442 K/mm3 (140-440); Red Blood Count 2.73 M/mm3 (3.65-5.03); Red Cell Distribution Width 17.5 % (13.2-15.2)
--- NOTE | 2019-12-05 13:26 | Progress Note ---
Assessment and Plan Imp: 1. Colon perforation/peritonitis/anastamotic leak s/p multiple surgeries 2. Sepsis 3. Acute respiratory failure, hypoxia 4. Obesity 5. KALI 6. Centrilobular emphysema, severe 7. Chronic nicotine dependence, cigarettes 8. HTN 9. CAD s/p PCI 10. Ischemic cardiomyopathy 11. PTX on L Rec: 1. Finished ABX 2. Off O2 3. Cont. current nebs 4. Optimize nutrition 5. DVT PPx 6. Stop smoking 7. Stable for placement pulm-devries Plan of care reviewed with patient, he understands/agrees Subjective Date of service: 12/05/19 Principal diagnosis: acute renal failure Interval history: Bedside sacral decubitus debridement done. On RA. No SOB, chest pain, cough. Alert, appropriate. Active Medications Acetaminophen (Tylenol) 650 mg PO Q6H PRN PRN Reason: Pain, Mild (1-3) Last Admin: 12/03/19 13:00 Dose: 650 mg Documented by: Acetaminophen/Hydrocodone Bitart ([place] 10/325) 1 each PO Q6H PRN PRN Reason: Pain, Moderate (4-6) Last Admin: 12/03/19 23:02 Dose: 1 each Documented by: Albuterol/Ipratropium (Duoneb *Not For Prn Use*) 1 ampul IH TIDRT [facility] Last Admin: 12/04/19 14:54 Dose: 1 ampul Documented by: Amiodarone HCl (Cordarone) 200 mg PO QDAY [facility] Last Admin: 12/04/19 12:23 Dose: 200 mg Documented by: Arformoterol Tartrate (Brovana Nebu) 15 mcg IH Q12HRT [facility] Last Admin: 12/04/19 08:34 Dose: 15 mcg Documented by: Budesonide (Pulmicort) 0.5 mg IH Q12HRT [facility] Last Admin: 12/04/19 08:34 Dose: 0.5 mg Documented by: Citalopram Hydrobromide (Celexa) 20 mg PO DAILY [facility] Last Admin: 12/04/19 11:03 Dose: 20 mg Documented by: Diphenhydramine HCl (Benadryl) 25 mg PO Q6H PRN PRN Reason: Itching Last Admin: 12/03/19 01:38 Dose: 25 mg Documented by: Enoxaparin Sodium (Enoxaparin) 40 mg SUB-Q QDAY@2200 [facility] Last Admin: 12/03/19 22:55 Dose: 40 mg Documented by: Haloperidol Lactate (Haldol) 5 mg IV Q6H PRN PRN Reason: Agitation Last Admin: 11/12/19 03:33 Dose: 5 mg Documented by: Hydralazine HCl (Apresoline) 10 mg IV Q4HR PRN PRN Reason: Hypertension Last Admin: 11/02/19 15:34 Dose: 10 mg Documented by: Hydromorphone HCl (Dilaudid) 1 mg IV Q4H PRN PRN Reason: Pain , Severe (7-10) Last Admin: 12/04/19 13:03 Dose: 1 mg Documented by: Insulin Human Lispro (Humalog) 0 unit SUB-Q Q6HR [facility]; Protocol Last Admin: 12/04/19 12:24 Dose: Not Given Documented by: Metoprolol Tartrate (Metoprolol) 2.5 mg IV Q4HR PRN PRN Reason: HR >130 Last Admin: 11/01/19 18:00 Dose: 2.5 mg Documented by: Metoprolol Tartrate (Metoprolol) 12.5 mg PO Q8HR [facility] Last Admin: 12/04/19 08:16 Dose: Not Given Documented by: Multi-Ingred Cream/Lotion/Oil/Oint (Artificial Tears Ophth Oint) 1 applic OU Q4HR PRN PRN Reason: Dry Eye(s) Pantoprazole Sodium (Protonix) 40 mg PO DAILY [facility] Last Admin: 12/04/19 11:03 Dose: 40 mg Documented by: Sodium Chloride (Sodium Chloride Flush Syringe 10 Ml) 10 ml IV PRN PRN PRN Reason: LINE FLUSH Last Admin: 11/28/19 21:23 Dose: 10 ml Documented by: Sodium Hypochlorite (Dakin's Half Strength) 1 applic TP Q12H PRN PRN Reason: Wound Care Zolpidem Tartrate (Ambien) 5 mg FEEDTUBE QHS PRN PRN Reason: Sleep Last Admin: 11/11/19 03:30 Dose: 5 mg Documented by: Objective Vital Signs - 12hr 12/05/19 12/05/19 12/05/19 05:04 08:32 12:00 Temperature 97.9 F 98.0 F Pulse Rate 87 83 Pulse Rate [ 96 H Anterior Bilateral Throughout] Respiratory 20 22 Rate Respiratory 20 Rate [Anterior Bilateral Throughout] Blood Pressure 120/53 127/63 O2 Sat by Pulse 89 95 Oximetry 12/05/19 13:21 Temperature Pulse Rate Pulse Rate [ 96 H Anterior Bilateral Throughout] Respiratory Rate Respiratory 20 Rate [Anterior Bilateral Throughout] Blood Pressure O2 Sat by Pulse Oximetry Constitutional: no acute distress, alert Eyes: non-icteric ENT: oropharynx moist Neck: supple Effort: normal Ascultation: Bilateral: clear, diminished breath sounds (bases) Cardiovascular: regular rate and rhythm (no mrg) Gastrointestinal: tender, other (obese, distended, ostomy in place) Integumentary: normal Extremities: no cyanosis, pink and warm, edema (1+ bilateral LE edema) Neurologic: normal mental status, non-focal exam, pupils equal and round Psychiatric: mood appropriate, affect normal CBC and BMP: 12/05/19 10:08 12/04/19 12:20 ABG, PT/INR, D-dimer: ABG POC ABG pH 7.422 (7.35-7.45) 11/03/19 04:28 ABG pH 7.390 pH Units (7.350-7.450) 10/23/19 04:47 POC ABG pCO2 45.4 (35-45) H 11/03/19 04:28 ABG pCO2 48.4 mm Hg 10/23/19 04:47 POC ABG pO2 83 (80-105) 11/03/19 04:28 ABG pO2 68.9 mm Hg (80.0-90.0) L 10/23/19 04:47 POC ABG HCO3 29.6 (22-26 mml/L) 11/03/19 04:28 POC ABG Total CO2 31 (23-27mmol/L) 11/03/19 04:28 POC ABG O2 Sat 96 11/03/19 04:28 ABG O2 Saturation 96.6 % (95.0-99.0) 10/23/19 04:47 Abnormal lab findings: Abnormal Labs 10/06/19 10/06/19 10/07/19 05:36 05:36 05:54 WBC 21.8 H 21.5 H RBC 3.55 L Hgb 10.9 L Hct 32.7 L MCV MCH MCHC RDW Plt Count Lymph % (Auto) Saunders % (Auto) Lymph # Saunders # Seg Neutrophils % Seg Neuts % (Manual) 91.0 H Lymphocytes % (Manual) 2.0 L Seg Neutrophils # Seg Neutrophils # Man 19.8 H Lymphocytes # (Manual) 0.4 L Monocytes # (Manual) 1.1 H POC ABG pH ABG pH POC ABG pCO2 POC ABG pO2 ABG pO2 ABG HCO3 ABG Base Excess ABG Hemoglobin Oxyhemoglobin Sodium 135 L Potassium Chloride 95.9 L Carbon Dioxide BUN Creatinine 0.7 L Glucose POC Glucose Calcium Phosphorus Magnesium Direct Bilirubin AST Alkaline Phosphatase C-Reactive Protein Serum Total Protein Total Protein 5.7 L Albumin 2.5 L Prealbumin Ekqrf-0-Dmawiptkd Vrjpp-1-Nzfqxkpfi Gamma Globulins PEP Interpretation Triglycerides Urine pH Urine Creatinine Urine Total Protein Vancomycin Trough Digoxin Crossmatch 10/07/19 10/09/19 10/09/19 05:54 10:52 10:52 WBC 16.6 H RBC Hgb Hct MCV MCH MCHC RDW Plt Count 498 H Lymph % (Auto) Saunders % (Auto) Lymph # Saunders # Seg Neutrophils % Seg Neuts % (Manual) 93.0 H Lymphocytes % (Manual) 5.0 L Seg Neutrophils # Seg Neutrophils # Man 15.4 H Lymphocytes # (Manual) 0.8 L Monocytes # (Manual) POC ABG pH ABG pH POC ABG pCO2 POC ABG pO2 ABG pO2 ABG HCO3 ABG Base Excess ABG Hemoglobin Oxyhemoglobin Sodium Potassium Chloride 97.9 L Carbon Dioxide 20 L D BUN 23 H Creatinine 1.7 H D Glucose 109 H POC Glucose Calcium 8.1 L Phosphorus Magnesium Direct Bilirubin AST Alkaline Phosphatase C-Reactive Protein Serum Total Protein Total Protein Albumin Prealbumin Eagxl-9-Cbmlfxqsa Kskat-3-Cbwdsklfb Gamma Globulins PEP Interpretation Triglycerides Urine pH Urine Creatinine Urine Total Protein Vancomycin Trough Digoxin Crossmatch 10/09/19 10/10/19 10/10/19 17:23 05:30 05:30 WBC 14.6 H RBC Hgb 11.1 L Hct 33.5 L MCV MCH MCHC RDW Plt Count 527 H Lymph % (Auto) Saunders % (Auto) Lymph # Saunders # Seg Neutrophils % Seg Neuts % (Manual) Lymphocytes % (Manual) Seg Neutrophils # Seg Neutrophils # Man Lymphocytes # (Manual) Monocytes # (Manual) POC ABG pH ABG pH POC ABG pCO2 POC ABG pO2 ABG pO2 ABG HCO3 ABG Base Excess ABG Hemoglobin Oxyhemoglobin Sodium 130 L D Potassium 5.1 H Chloride 90.0 L 91.0 L Carbon Dioxide 20 L 20 L BUN 27 H 35 H Creatinine 1.9 H 2.0 H Glucose 104 H POC Glucose Calcium Phosphorus Magnesium Direct Bilirubin AST Alkaline Phosphatase C-Reactive Protein Serum Total Protein Total Protein Albumin Prealbumin Ykymc-2-Qbumdwaqj Sbyok-2-Ivyjeedce Gamma Globulins PEP Interpretation Triglycerides Urine pH Urine Creatinine Urine Total Protein Vancomycin Trough Digoxin Crossmatch 10/10/19 10/10/19 10/11/19 08:33 08:44 05:41 WBC 13.2 H RBC Hgb 11.3 L Hct 33.8 L MCV MCH MCHC RDW 15.3 H Plt Count 543 H Lymph % (Auto) Saunders % (Auto) Lymph # Saunders # Seg Neutrophils % Seg Neuts % (Manual) Lymphocytes % (Manual) Seg Neutrophils # Seg Neutrophils # Man Lymphocytes # (Manual) Monocytes # (Manual) POC ABG pH ABG pH POC ABG pCO2 POC ABG pO2 ABG pO2 ABG HCO3 ABG Base Excess ABG Hemoglobin Oxyhemoglobin Sodium Potassium Chloride Carbon Dioxide BUN Creatinine Glucose 113 H POC Glucose 117 H Calcium Phosphorus Magnesium Direct Bilirubin AST Alkaline Phosphatase C-Reactive Protein Serum Total Protein Total Protein Albumin Prealbumin Ivtuw-0-Nphppfwru Nptkk-1-Pswkyflnb Gamma Globulins PEP Interpretation Triglycerides Urine pH Urine Creatinine Urine Total Protein Vancomycin Trough Digoxin Crossmatch 10/11/19 10/11/19 10/11/19 05:41 06:23 06:23 WBC RBC Hgb Hct MCV MCH MCHC RDW Plt Count Lymph % (Auto) Saunders % (Auto) Lymph # Saunders # Seg Neutrophils % Seg Neuts % (Manual) Lymphocytes % (Manual) Seg Neutrophils # Seg Neutrophils # Man Lymphocytes # (Manual) Monocytes # (Manual) POC ABG pH ABG pH POC ABG pCO2 POC ABG pO2 ABG pO2 ABG HCO3 ABG Base Excess ABG Hemoglobin Oxyhemoglobin Sodium 134 L Potassium Chloride 96.3 L Carbon Dioxide BUN 37 H Creatinine Glucose 58 L POC Glucose Calcium Phosphorus 4.90 H Magnesium Direct Bilirubin AST Alkaline Phosphatase C-Reactive Protein Serum Total Protein Total Protein Albumin Prealbumin Uelwd-3-Wsgvysmjj Xwfgu-9-Yrdtrwswa Gamma Globulins PEP Interpretation Triglycerides Urine pH Urine Creatinine 118.2 H 116.8 H Urine Total Protein 105 H 104 H Vancomycin Trough Digoxin Crossmatch 10/11/19 10/12/19 10/12/19 09:00 06:09 06:09 WBC 13.8 H RBC 3.39 L Hgb 10.2 L Hct 30.9 L MCV MCH MCHC RDW 15.5 H Plt Count 459 H Lymph % (Auto) Saunders % (Auto) Lymph # Saunders # Seg Neutrophils % Seg Neuts % (Manual) Lymphocytes % (Manual) Seg Neutrophils # Seg Neutrophils # Man Lymphocytes # (Manual) Monocytes # (Manual) POC ABG pH ABG pH POC ABG pCO2 POC ABG pO2 ABG pO2 ABG HCO3 ABG Base Excess ABG Hemoglobin Oxyhemoglobin Sodium 131 L Potassium Chloride 96.2 L Carbon Dioxide 21 L BUN 43 H Creatinine Glucose 72 L POC Glucose Calcium Phosphorus Magnesium Direct Bilirubin AST Alkaline Phosphatase C-Reactive Protein Serum Total Protein 5.2 L Total Protein Albumin 1.9 L Prealbumin Hbupe-0-Pdtzsepuu 0.9 H Gulol-4-Pqykdgfhj 1.0 H Gamma Globulins 0.7 L PEP Interpretation see below H Triglycerides Urine pH Urine Creatinine Urine Total Protein Vancomycin Trough Digoxin Crossmatch 10/12/19 10/12/19 10/12/19 08:20 09:30 09:30 WBC RBC Hgb Hct MCV MCH MCHC RDW Plt Count Lymph % (Auto) Saunders % (Auto) Lymph # Saunders # Seg Neutrophils % Seg Neuts % (Manual) Lymphocytes % (Manual) Seg Neutrophils # Seg Neutrophils # Man Lymphocytes # (Manual) Monocytes # (Manual) POC ABG pH ABG pH POC ABG pCO2 POC ABG pO2 63 L ABG pO2 ABG HCO3 ABG Base Excess ABG Hemoglobin Oxyhemoglobin Sodium Potassium Chloride Carbon Dioxide BUN Creatinine Glucose POC Glucose Calcium Phosphorus Magnesium 2.50 H Direct Bilirubin 0.3 H AST Alkaline Phosphatase C-Reactive Protein Serum Total Protein Total Protein 5.1 L Albumin 2.2 L Prealbumin Lswvd-1-Kkjwlyauc Vzpcn-6-Gnrimpmzf Gamma Globulins PEP Interpretation Triglycerides Urine pH Urine Creatinine Urine Total Protein Vancomycin Trough Digoxin Crossmatch 10/13/19 10/13/19 10/13/19 04:20 04:20 13:20 WBC 15.7 H RBC 3.64 L Hgb 10.9 L Hct 33.1 L MCV MCH MCHC RDW 15.8 H Plt Count 488 H Lymph % (Auto) Saunders % (Auto) Lymph # Saunders # Seg Neutrophils % Seg Neuts % (Manual) Lymphocytes % (Manual) Seg Neutrophils # Seg Neutrophils # Man Lymphocytes # (Manual) Monocytes # (Manual) POC ABG pH ABG pH POC ABG pCO2 POC ABG pO2 ABG pO2 ABG HCO3 ABG Base Excess ABG Hemoglobin Oxyhemoglobin Sodium Potassium Chloride Carbon Dioxide BUN 28 H Creatinine Glucose POC Glucose Calcium Phosphorus Magnesium Direct Bilirubin AST Alkaline Phosphatase C-Reactive Protein Serum Total Protein Total Protein Albumin Prealbumin Xbpja-2-Yjkmmbqmu Qavox-5-Sxvpgkgvr Gamma Globulins PEP Interpretation Triglycerides Urine pH Urine Creatinine Urine Total Protein Vancomycin Trough Digoxin Crossmatch See Detail 10/13/19 10/13/19 10/14/19 18:24 20:05 04:47 WBC 24.2 H RBC Hgb 10.9 L Hct 34.2 L MCV MCH MCHC RDW 17.0 H Plt Count 442 H Lymph % (Auto) Saunders % (Auto) Lymph # Saunders # Seg Neutrophils % Seg Neuts % (Manual) Lymphocytes % (Manual) Seg Neutrophils # Seg Neutrophils # Man Lymphocytes # (Manual) Monocytes # (Manual) POC ABG pH ABG pH 7.180 L* 7.278 L POC ABG pCO2 POC ABG pO2 ABG pO2 130.7 H ABG HCO3 ABG Base Excess -6.5 L -6.5 L ABG Hemoglobin 12.2 L 12.3 L Oxyhemoglobin 92.9 L Sodium Potassium Chloride Carbon Dioxide BUN Creatinine Glucose POC Glucose Calcium Phosphorus Magnesium Direct Bilirubin AST Alkaline Phosphatase C-Reactive Protein Serum Total Protein Total Protein Albumin Prealbumin Iwmnq-9-Dgtbpsswx Bcxgj-8-Qfpxaxeda Gamma Globulins PEP Interpretation Triglycerides Urine pH Urine Creatinine Urine Total Protein Vancomycin Trough Digoxin Crossmatch 10/14/19 10/14/19 10/14/19 04:47 05:40 10:14 WBC RBC Hgb Hct MCV MCH MCHC RDW Plt Count Lymph % (Auto) Saunders % (Auto) Lymph # Saunders # Seg Neutrophils % Seg Neuts % (Manual) Lymphocytes % (Manual) Seg Neutrophils # Seg Neutrophils # Man Lymphocytes # (Manual) Monocytes # (Manual) POC ABG pH ABG pH POC ABG pCO2 POC ABG pO2 ABG pO2 76.3 L ABG HCO3 19.1 L ABG Base Excess -5.8 L ABG Hemoglobin 10.9 L Oxyhemoglobin 93.4 L Sodium Potassium 5.1 H D Chloride 109.2 H Carbon Dioxide 17 L BUN 38 H Creatinine 1.8 H D Glucose 104 H POC Glucose Calcium 7.4 L Phosphorus 5.60 H Magnesium Direct Bilirubin AST Alkaline Phosphatase C-Reactive Protein Serum Total Protein Total Protein Albumin Prealbumin Ipjdf-3-Cuzjrcena Gisah-7-Fdknclhvu Gamma Globulins PEP Interpretation Triglycerides Urine pH Urine Creatinine Urine Total Protein Vancomycin Trough Digoxin Crossmatch 10/14/19 10/15/19 10/15/19 23:46 04:32 04:32 WBC 15.5 H RBC 2.89 L Hgb 8.8 L Hct 27.3 L D MCV MCH MCHC RDW 16.6 H Plt Count Lymph % (Auto) Saunders % (Auto) Lymph # Saunders # Seg Neutrophils % Seg Neuts % (Manual) Lymphocytes % (Manual) Seg Neutrophils # Seg Neutrophils # Man Lymphocytes # (Manual) Monocytes # (Manual) POC ABG pH ABG pH POC ABG pCO2 POC ABG pO2 ABG pO2 ABG HCO3 ABG Base Excess ABG Hemoglobin Oxyhemoglobin Sodium 147 H Potassium Chloride 114.0 H Carbon Dioxide 19 L BUN 42 H Creatinine Glucose 112 H POC Glucose 113 H Calcium 7.3 L Phosphorus Magnesium Direct Bilirubin AST 72 H Alkaline Phosphatase C-Reactive Protein 30.60 H Serum Total Protein Total Protein 4.0 L D Albumin 1.7 L Prealbumin 0.030 L Peuxn-6-Rpcvjeccb Nduhd-6-Rzfpoybem Gamma Globulins PEP Interpretation Triglycerides Urine pH Urine Creatinine Urine Total Protein Vancomycin Trough Digoxin Crossmatch 10/15/19 10/15/19 10/15/19 05:30 12:08 17:23 WBC RBC Hgb Hct MCV MCH MCHC RDW Plt Count Lymph % (Auto) Saunders % (Auto) Lymph # Saunders # Seg Neutrophils % Seg Neuts % (Manual) Lymphocytes % (Manual) Seg Neutrophils # Seg Neutrophils # Man Lymphocytes # (Manual) Monocytes # (Manual) POC ABG pH ABG pH 7.296 L POC ABG pCO2 POC ABG pO2 ABG pO2 114.7 H ABG HCO3 ABG Base Excess -3.7 L ABG Hemoglobin 8.9 L Oxyhemoglobin Sodium Potassium Chloride Carbon Dioxide BUN Creatinine Glucose POC Glucose 106 H 106 H Calcium Phosphorus Magnesium Direct Bilirubin AST Alkaline Phosphatase C-Reactive Protein Serum Total Protein Total Protein Albumin Prealbumin Ffgkb-3-Quozwiqck Sziny-1-Wzdydzuxx Gamma Globulins PEP Interpretation Triglycerides Urine pH Urine Creatinine Urine Total Protein Vancomycin Trough Digoxin Crossmatch 10/16/19 10/16/19 10/16/19 00:07 04:44 05:24 WBC RBC Hgb Hct MCV MCH MCHC RDW Plt Count Lymph % (Auto) Saunders % (Auto) Lymph # Saunders # Seg Neutrophils % Seg Neuts % (Manual) Lymphocytes % (Manual) Seg Neutrophils # Seg Neutrophils # Man Lymphocytes # (Manual) Monocytes # (Manual) POC ABG pH ABG pH POC ABG pCO2 POC ABG pO2 ABG pO2 ABG HCO3 ABG Base Excess ABG Hemoglobin Oxyhemoglobin Sodium 150 H Potassium Chloride 115.8 H Carbon Dioxide BUN 35 H Creatinine Glucose 129 H POC Glucose 119 H 129 H Calcium 7.3 L Phosphorus 1.80 L D Magnesium Direct Bilirubin AST Alkaline Phosphatase C-Reactive Protein Serum Total Protein Total Protein Albumin Prealbumin Xknmw-4-Vzcuuqbgz Skgth-2-Gtdjakpyf Gamma Globulins PEP Interpretation Triglycerides Urine pH Urine Creatinine Urine Total Protein Vancomycin Trough Digoxin Crossmatch 10/16/19 10/16/19 10/16/19 06:53 09:20 11:58 WBC 14.6 H RBC 2.70 L Hgb 8.1 L Hct 25.2 L MCV MCH MCHC RDW 16.7 H Plt Count Lymph % (Auto) Saunders % (Auto) Lymph # Saunders # Seg Neutrophils % Seg Neuts % (Manual) 79.0 H Lymphocytes % (Manual) 4.0 L Seg Neutrophils # Seg Neutrophils # Man 11.5 H Lymphocytes # (Manual) 0.6 L Monocytes # (Manual) POC ABG pH ABG pH POC ABG pCO2 47.0 H POC ABG pO2 ABG pO2 ABG HCO3 ABG Base Excess ABG Hemoglobin Oxyhemoglobin Sodium Potassium Chloride Carbon Dioxide BUN Creatinine Glucose POC Glucose Calcium Phosphorus Magnesium Direct Bilirubin AST Alkaline Phosphatase C-Reactive Protein Serum Total Protein Total Protein Albumin Prealbumin Qcwhz-7-Haztxatxp Bwyur-4-Ijdyzwopp Gamma Globulins PEP Interpretation Triglycerides Urine pH Urine Creatinine Urine Total Protein Vancomycin Trough Digoxin Crossmatch See Detail 10/16/19 10/16/19 10/16/19 15:23 17:50 23:58 WBC RBC Hgb Hct MCV MCH MCHC RDW Plt Count Lymph % (Auto) Saunders % (Auto) Lymph # Saunders # Seg Neutrophils % Seg Neuts % (Manual) Lymphocytes % (Manual) Seg Neutrophils # Seg Neutrophils # Man Lymphocytes # (Manual) Monocytes # (Manual) POC ABG pH ABG pH POC ABG pCO2 POC ABG pO2 ABG pO2 ABG HCO3 ABG Base Excess ABG Hemoglobin Oxyhemoglobin Sodium Potassium Chloride Carbon Dioxide BUN Creatinine Glucose POC Glucose 221 H 201 H 179 H Calcium Phosphorus Magnesium Direct Bilirubin AST Alkaline Phosphatase C-Reactive Protein Serum Total Protein Total Protein Albumin Prealbumin Vmwnn-6-Wibsihars Uwuzu-7-Ykgyipppb Gamma Globulins PEP Interpretation Triglycerides Urine pH Urine Creatinine Urine Total Protein Vancomycin Trough Digoxin Crossmatch 10/17/19 10/17/19 10/17/19 04:08 04:08 05:41 WBC 22.3 H RBC 3.35 L Hgb 10.0 L Hct 31.2 L D MCV MCH MCHC RDW 16.1 H Plt Count Lymph % (Auto) Saunders % (Auto) Lymph # Saunders # Seg Neutrophils % Seg Neuts % (Manual) Lymphocytes % (Manual) Seg Neutrophils # Seg Neutrophils # Man Lymphocytes # (Manual) Monocytes # (Manual) POC ABG pH 7.310 L ABG pH POC ABG pCO2 52.8 H POC ABG pO2 70 L ABG pO2 ABG HCO3 ABG Base Excess ABG Hemoglobin Oxyhemoglobin Sodium 147 H Potassium Chloride 114.9 H Carbon Dioxide BUN 36 H Creatinine Glucose 165 H POC Glucose Calcium 6.9 L Phosphorus 2.20 L D Magnesium Direct Bilirubin AST Alkaline Phosphatase C-Reactive Protein Serum Total Protein Total Protein Albumin Prealbumin Hjixs-4-Ipjcswtog Dasdm-7-Mwgcjkjuz Gamma Globulins PEP Interpretation Triglycerides Urine pH Urine Creatinine Urine Total Protein Vancomycin Trough Digoxin Crossmatch 10/17/19 10/17/19 10/17/19 05:42 11:33 18:17 WBC RBC Hgb Hct MCV MCH MCHC RDW Plt Count Lymph % (Auto) Saunders % (Auto) Lymph # Saunders # Seg Neutrophils % Seg Neuts % (Manual) Lymphocytes % (Manual) Seg Neutrophils # Seg Neutrophils # Man Lymphocytes # (Manual) Monocytes # (Manual) POC ABG pH ABG pH POC ABG pCO2 POC ABG pO2 ABG pO2 ABG HCO3 ABG Base Excess ABG Hemoglobin Oxyhemoglobin Sodium Potassium Chloride Carbon Dioxide BUN Creatinine Glucose POC Glucose 149 H 154 H 163 H Calcium Phosphorus Magnesium Direct Bilirubin AST Alkaline Phosphatase C-Reactive Protein Serum Total Protein Total Protein Albumin Prealbumin Rvbkd-9-Fwmjkaxdg Rxhrz-7-Xqwsflqtj Gamma Globulins PEP Interpretation Triglycerides Urine pH Urine Creatinine Urine Total Protein Vancomycin Trough Digoxin Crossmatch 10/17/19 10/18/19 10/18/19 23:34 03:29 04:50 WBC RBC Hgb Hct MCV MCH MCHC RDW Plt Count Lymph % (Auto) Saunders % (Auto) Lymph # Saunders # Seg Neutrophils % Seg Neuts % (Manual) Lymphocytes % (Manual) Seg Neutrophils # Seg Neutrophils # Man Lymphocytes # (Manual) Monocytes # (Manual) POC ABG pH ABG pH POC ABG pCO2 POC ABG pO2 ABG pO2 78.8 L ABG HCO3 ABG Base Excess ABG Hemoglobin 8.8 L Oxyhemoglobin Sodium Potassium Chloride 111.8 H Carbon Dioxide BUN 27 H Creatinine 0.6 L Glucose 140 H POC Glucose 135 H Calcium 7.1 L Phosphorus 1.80 L Magnesium Direct Bilirubin AST Alkaline Phosphatase C-Reactive Protein Serum Total Protein Total Protein Albumin Prealbumin Ubzfg-8-Cmmkgqaul Zrkue-4-Loziydhgf Gamma Globulins PEP Interpretation Triglycerides Urine pH Urine Creatinine Urine Total Protein Vancomycin Trough Digoxin Crossmatch 10/18/19 10/18/19 10/18/19 05:45 11:19 18:26 WBC RBC Hgb Hct MCV MCH MCHC RDW Plt Count Lymph % (Auto) Saunders % (Auto) Lymph # Saunders # Seg Neutrophils % Seg Neuts % (Manual) Lymphocytes % (Manual) Seg Neutrophils # Seg Neutrophils # Man Lymphocytes # (Manual) Monocytes # (Manual) POC ABG pH ABG pH POC ABG pCO2 POC ABG pO2 ABG pO2 ABG HCO3 ABG Base Excess ABG Hemoglobin Oxyhemoglobin Sodium Potassium Chloride Carbon Dioxide BUN Creatinine Glucose POC Glucose 145 H 152 H 125 H Calcium Phosphorus Magnesium Direct Bilirubin AST Alkaline Phosphatase C-Reactive Protein Serum Total Protein Total Protein Albumin Prealbumin Enklr-6-Xrrqutlmd Efcjg-0-Ovmskbegz Gamma Globulins PEP Interpretation Triglycerides Urine pH Urine Creatinine Urine Total Protein Vancomycin Trough Digoxin Crossmatch 10/18/19 10/19/19 10/19/19 23:27 04:21 04:21 WBC RBC Hgb Hct MCV MCH MCHC RDW Plt Count Lymph % (Auto) Saunders % (Auto) Lymph # Saunders # Seg Neutrophils % Seg Neuts % (Manual) Lymphocytes % (Manual) Seg Neutrophils # Seg Neutrophils # Man Lymphocytes # (Manual) Monocytes # (Manual) POC ABG pH ABG pH POC ABG pCO2 POC ABG pO2 ABG pO2 ABG HCO3 ABG Base Excess ABG Hemoglobin Oxyhemoglobin Sodium Potassium Chloride 108.4 H Carbon Dioxide BUN 22 H Creatinine 0.5 L Glucose 123 H POC Glucose 127 H Calcium 7.4 L Phosphorus 1.80 L Magnesium Direct Bilirubin AST Alkaline Phosphatase C-Reactive Protein Serum Total Protein Total Protein Albumin Prealbumin Djvvf-7-Kqnlfxvqm Qvxhp-8-Sqpcipmym Gamma Globulins PEP Interpretation Triglycerides Urine pH Urine Creatinine Urine Total Protein Vancomycin Trough Digoxin 0.7 L Crossmatch 10/19/19 10/19/19 10/19/19 05:00 05:35 11:26 WBC RBC Hgb Hct MCV MCH MCHC RDW Plt Count Lymph % (Auto) Saunders % (Auto) Lymph # Saunders # Seg Neutrophils % Seg Neuts % (Manual) Lymphocytes % (Manual) Seg Neutrophils # Seg Neutrophils # Man Lymphocytes # (Manual) Monocytes # (Manual) POC ABG pH ABG pH 7.456 H POC ABG pCO2 POC ABG pO2 ABG pO2 78.8 L ABG HCO3 ABG Base Excess ABG Hemoglobin 5.6 L Oxyhemoglobin Sodium Potassium Chloride Carbon Dioxide BUN Creatinine Glucose POC Glucose 124 H 111 H Calcium Phosphorus Magnesium Direct Bilirubin AST Alkaline Phosphatase C-Reactive Protein Serum Total Protein Total Protein Albumin Prealbumin Frfyj-4-Rsvswzgsg Foojg-0-Syjxsqjyz Gamma Globulins PEP Interpretation Triglycerides Urine pH Urine Creatinine Urine Total Protein Vancomycin Trough Digoxin Crossmatch 10/19/19 10/20/19 10/20/19 23:23 04:50 05:17 WBC RBC Hgb Hct MCV MCH MCHC RDW Plt Count Lymph % (Auto) Saunders % (Auto) Lymph # Saunders # Seg Neutrophils % Seg Neuts % (Manual) Lymphocytes % (Manual) Seg Neutrophils # Seg Neutrophils # Man Lymphocytes # (Manual) Monocytes # (Manual) POC ABG pH ABG pH POC ABG pCO2 POC ABG pO2 ABG pO2 ABG HCO3 ABG Base Excess ABG Hemoglobin Oxyhemoglobin Sodium Potassium Chloride 108.1 H Carbon Dioxide BUN Creatinine 0.4 L Glucose 134 H POC Glucose 129 H 123 H Calcium 7.1 L Phosphorus Magnesium Direct Bilirubin AST Alkaline Phosphatase C-Reactive Protein Serum Total Protein Total Protein Albumin Prealbumin [id number] Gamma Globulins PEP Interpretation Triglycerides Urine pH Urine Creatinine Urine Total Protein Vancomycin Trough Digoxin Crossmatch 10/20/19 10/20/19 10/21/19 11:40 19:06 05:08 WBC RBC Hgb Hct MCV MCH MCHC RDW Plt Count Lymph % (Auto) Saunders % (Auto) Lymph # Saunders # Seg Neutrophils % Seg Neuts % (Manual) Lymphocytes % (Manual) Seg Neutrophils # Seg Neutrophils # Man Lymphocytes # (Manual) Monocytes # (Manual) POC ABG pH ABG pH POC ABG pCO2 POC ABG pO2 ABG pO2 ABG HCO3 ABG Base Excess ABG Hemoglobin Oxyhemoglobin Sodium Potassium Chloride Carbon Dioxide BUN Creatinine Glucose POC Glucose 139 H 117 H 131 H Calcium Phosphorus Magnesium Direct Bilirubin AST Alkaline Phosphatase C-Reactive Protein Serum Total Protein Total Protein Albumin Prealbumin Qggxo-6-Slytbdcia Xfgkz-0-Hqbxctrnd Gamma Globulins PEP Interpretation Triglycerides Urine pH Urine Creatinine Urine Total Protein Vancomycin Trough Digoxin Crossmatch 10/21/19 10/21/19 10/21/19 05:30 12:04 17:31 WBC RBC Hgb Hct MCV MCH MCHC RDW Plt Count Lymph % (Auto) Saunders % (Auto) Lymph # Saunders # Seg Neutrophils % Seg Neuts % (Manual) Lymphocytes % (Manual) Seg Neutrophils # Seg Neutrophils # Man Lymphocytes # (Manual) Monocytes # (Manual) POC ABG pH ABG pH POC ABG pCO2 POC ABG pO2 ABG pO2 ABG HCO3 ABG Base Excess ABG Hemoglobin Oxyhemoglobin Sodium Potassium Chloride 107.8 H Carbon Dioxide BUN Creatinine 0.5 L Glucose 119 H POC Glucose 119 H 110 H Calcium 7.6 L Phosphorus Magnesium Direct Bilirubin AST Alkaline Phosphatase C-Reactive Protein Serum Total Protein Total Protein Albumin Prealbumin Dvuun-9-Sixxdltup Stclk-5-Xywvahmea Gamma Globulins PEP Interpretation Triglycerides Urine pH Urine Creatinine Urine Total Protein Vancomycin Trough Digoxin Crossmatch 10/22/19 10/22/19 10/22/19 05:14 05:37 12:07 WBC RBC Hgb Hct MCV MCH MCHC RDW Plt Count Lymph % (Auto) Saunders % (Auto) Lymph # Saunders # Seg Neutrophils % Seg Neuts % (Manual) Lymphocytes % (Manual) Seg Neutrophils # Seg Neutrophils # Man Lymphocytes # (Manual) Monocytes # (Manual) POC ABG pH ABG pH POC ABG pCO2 POC ABG pO2 ABG pO2 ABG HCO3 ABG Base Excess ABG Hemoglobin Oxyhemoglobin Sodium Potassium Chloride Carbon Dioxide BUN Creatinine 0.5 L Glucose 116 H POC Glucose 110 H 126 H Calcium 7.7 L Phosphorus Magnesium Direct Bilirubin AST Alkaline Phosphatase C-Reactive Protein Serum Total Protein Total Protein Albumin Prealbumin Mznid-6-Cgwcdszty Sjlec-5-Jnicmuqir Gamma Globulins PEP Interpretation Triglycerides Urine pH Urine Creatinine Urine Total Protein Vancomycin Trough Digoxin Crossmatch 10/22/19 10/22/19 10/23/19 18:36 23:19 04:39 WBC RBC Hgb Hct MCV MCH MCHC RDW Plt Count Lymph % (Auto) Saunders % (Auto) Lymph # Saunders # Seg Neutrophils % Seg Neuts % (Manual) Lymphocytes % (Manual) Seg Neutrophils # Seg Neutrophils # Man Lymphocytes # (Manual) Monocytes # (Manual) POC ABG pH ABG pH POC ABG pCO2 POC ABG pO2 ABG pO2 ABG HCO3 ABG Base Excess ABG Hemoglobin Oxyhemoglobin Sodium Potassium Chloride Carbon Dioxide BUN Creatinine Glucose POC Glucose 120 H 127 H 112 H Calcium Phosphorus Magnesium Direct Bilirubin AST Alkaline Phosphatase C-Reactive Protein Serum Total Protein Total Protein Albumin Prealbumin Jwnio-7-Ayhcbrwen Fmulj-2-Urxlqwbsh Gamma Globulins PEP Interpretation Triglycerides Urine pH Urine Creatinine Urine Total Protein Vancomycin Trough Digoxin Crossmatch 10/23/19 10/23/19 10/23/19 04:47 05:15 10:44 WBC 18.3 H RBC 2.33 L Hgb 7.0 L Hct 21.5 L MCV MCH MCHC RDW 16.2 H Plt Count Lymph % (Auto) 4.9 L Saunders % (Auto) 8.1 H Lymph # 0.9 L Saunders # 1.5 H Seg Neutrophils % 86.7 H Seg Neuts % (Manual) Lymphocytes % (Manual) Seg Neutrophils # 15.9 H Seg Neutrophils # Man Lymphocytes # (Manual) Monocytes # (Manual) POC ABG pH ABG pH POC ABG pCO2 POC ABG pO2 ABG pO2 68.9 L ABG HCO3 28.7 H ABG Base Excess 3.4 H ABG Hemoglobin 6.6 L Oxyhemoglobin 94.1 L Sodium Potassium Chloride Carbon Dioxide BUN Creatinine 0.5 L Glucose 165 H POC Glucose Calcium 7.4 L Phosphorus Magnesium Direct Bilirubin AST Alkaline Phosphatase C-Reactive Protein Serum Total Protein Total Protein Albumin Prealbumin Czrqq-2-Vphgjshwr Eahto-9-Ptaycdeks Gamma Globulins PEP Interpretation Triglycerides Urine pH Urine Creatinine Urine Total Protein Vancomycin Trough Digoxin Crossmatch 10/23/19 10/23/19 10/23/19 10:44 11:46 11:50 WBC RBC Hgb Hct MCV MCH MCHC RDW Plt Count Lymph % (Auto) Saunders % (Auto) Lymph # Saunders # Seg Neutrophils % Seg Neuts % (Manual) Lymphocytes % (Manual) Seg Neutrophils # Seg Neutrophils # Man Lymphocytes # (Manual) Monocytes # (Manual) POC ABG pH ABG pH POC ABG pCO2 POC ABG pO2 ABG pO2 ABG HCO3 ABG Base Excess ABG Hemoglobin Oxyhemoglobin Sodium Potassium Chloride Carbon Dioxide BUN Creatinine Glucose POC Glucose 138 H Calcium Phosphorus Magnesium Direct Bilirubin 0.7 H AST Alkaline Phosphatase C-Reactive Protein Serum Total Protein Total Protein 4.5 L Albumin 1.2 L Prealbumin Genbw-2-Chfvukzgh Tayvc-5-Qhzihclsa Gamma Globulins PEP Interpretation Triglycerides Urine pH Urine Creatinine Urine Total Protein Vancomycin Trough Digoxin Crossmatch See Detail 10/23/19 10/24/19 10/24/19 17:53 00:07 05:05 WBC RBC Hgb Hct MCV MCH MCHC RDW Plt Count Lymph % (Auto) Saunders % (Auto) Lymph # Saunders # Seg Neutrophils % Seg Neuts % (Manual) Lymphocytes % (Manual) Seg Neutrophils # Seg Neutrophils # Man Lymphocytes # (Manual) Monocytes # (Manual) POC ABG pH ABG pH POC ABG pCO2 POC ABG pO2 ABG pO2 ABG HCO3 ABG Base Excess ABG Hemoglobin Oxyhemoglobin Sodium Potassium 3.5 L Chloride Carbon Dioxide BUN Creatinine 0.5 L Glucose 116 H POC Glucose 137 H 110 H Calcium 8.0 L Phosphorus Magnesium Direct Bilirubin AST Alkaline Phosphatase C-Reactive Protein Serum Total Protein Total Protein Albumin Prealbumin Mgvfj-5-Kcscywswj Xzsff-2-Osmcfkgng Gamma Globulins PEP Interpretation Triglycerides Urine pH Urine Creatinine Urine Total Protein Vancomycin Trough Digoxin Crossmatch 10/24/19 10/24/19 10/24/19 05:05 11:56 13:00 WBC 13.0 H RBC 2.73 L Hgb 8.0 L Hct 24.2 L MCV MCH MCHC RDW 17.9 H Plt Count Lymph % (Auto) 7.0 L Saunders % (Auto) 9.5 H Lymph # 0.9 L Saunders # 1.2 H Seg Neutrophils % 82.7 H Seg Neuts % (Manual) Lymphocytes % (Manual) Seg Neutrophils # 10.7 H Seg Neutrophils # Man Lymphocytes # (Manual) Monocytes # (Manual) POC ABG pH ABG pH POC ABG pCO2 POC ABG pO2 ABG pO2 ABG HCO3 ABG Base Excess ABG Hemoglobin Oxyhemoglobin Sodium Potassium Chloride Carbon Dioxide BUN Creatinine Glucose POC Glucose 159 H Calcium Phosphorus Magnesium Direct Bilirubin AST Alkaline Phosphatase C-Reactive Protein Serum Total Protein Total Protein Albumin Prealbumin Furjf-7-Jzeqnprju Bwapj-2-Bnjnvwkdv Gamma Globulins PEP Interpretation Triglycerides 216 H Urine pH Urine Creatinine Urine Total Protein Vancomycin Trough Digoxin Crossmatch 10/24/19 10/24/19 10/25/19 17:42 23:45 04:19 WBC RBC Hgb Hct MCV MCH MCHC RDW Plt Count Lymph % (Auto) Saunders % (Auto) Lymph # Saunders # Seg Neutrophils % Seg Neuts % (Manual) Lymphocytes % (Manual) Seg Neutrophils # Seg Neutrophils # Man Lymphocytes # (Manual) Monocytes # (Manual) POC ABG pH ABG pH POC ABG pCO2 POC ABG pO2 ABG pO2 ABG HCO3 ABG Base Excess ABG Hemoglobin Oxyhemoglobin Sodium 147 H Potassium Chloride Carbon Dioxide 33 H BUN Creatinine 0.5 L Glucose 111 H POC Glucose 120 H 116 H Calcium Phosphorus Magnesium Direct Bilirubin AST Alkaline Phosphatase C-Reactive Protein Serum Total Protein Total Protein 5.7 L D Albumin 2.5 L Prealbumin Aoiag-5-Dwgcmfpdv Qnzbb-0-Vxrndpetj Gamma Globulins PEP Interpretation Triglycerides 230 H Urine pH Urine Creatinine Urine Total Protein Vancomycin Trough Digoxin Crossmatch 10/25/19 10/25/19 10/25/19 04:19 05:31 12:20 WBC RBC 2.69 L Hgb 8.1 L Hct 23.9 L MCV MCH MCHC RDW 17.3 H Plt Count Lymph % (Auto) Saunders % (Auto) Lymph # Saunders # Seg Neutrophils % Seg Neuts % (Manual) Lymphocytes % (Manual) Seg Neutrophils # Seg Neutrophils # Man Lymphocytes # (Manual) Monocytes # (Manual) POC ABG pH ABG pH POC ABG pCO2 POC ABG pO2 ABG pO2 ABG HCO3 ABG Base Excess ABG Hemoglobin Oxyhemoglobin Sodium Potassium Chloride Carbon Dioxide BUN Creatinine Glucose POC Glucose 126 H 114 H Calcium Phosphorus Magnesium Direct Bilirubin AST Alkaline Phosphatase C-Reactive Protein Serum Total Protein Total Protein Albumin Prealbumin Qsdko-9-Qmfetjbkj Qfmty-7-Nkipaxjtu Gamma Globulins PEP Interpretation Triglycerides Urine pH Urine Creatinine Urine Total Protein Vancomycin Trough Digoxin Crossmatch 10/25/19 10/25/19 10/26/19 18:30 23:09 06:15 WBC RBC Hgb Hct MCV MCH MCHC RDW Plt Count Lymph % (Auto) Saunders % (Auto) Lymph # Saunders # Seg Neutrophils % Seg Neuts % (Manual) Lymphocytes % (Manual) Seg Neutrophils # Seg Neutrophils # Man Lymphocytes # (Manual) Monocytes # (Manual) POC ABG pH ABG pH POC ABG pCO2 POC ABG pO2 ABG pO2 ABG HCO3 ABG Base Excess ABG Hemoglobin Oxyhemoglobin Sodium Potassium 3.5 L Chloride Carbon Dioxide BUN Creatinine 0.5 L Glucose 112 H POC Glucose 121 H 107 H Calcium 8.3 L Phosphorus Magnesium Direct Bilirubin AST Alkaline Phosphatase 148 H C-Reactive Protein Serum Total Protein Total Protein 5.9 L Albumin 2.4 L Prealbumin Rshfc-3-Spogsxvsv Nixea-0-Zeyeomwwg Gamma Globulins PEP Interpretation Triglycerides Urine pH Urine Creatinine Urine Total Protein Vancomycin Trough Digoxin Crossmatch 10/26/19 10/26/19 10/26/19 06:15 12:21 17:35 WBC RBC Hgb Hct MCV MCH MCHC RDW Plt Count Lymph % (Auto) Saunders % (Auto) Lymph # Saunders # Seg Neutrophils % Seg Neuts % (Manual) Lymphocytes % (Manual) Seg Neutrophils # Seg Neutrophils # Man Lymphocytes # (Manual) Monocytes # (Manual) POC ABG pH ABG pH POC ABG pCO2 POC ABG pO2 ABG pO2 ABG HCO3 ABG Base Excess ABG Hemoglobin Oxyhemoglobin Sodium Potassium Chloride Carbon Dioxide BUN Creatinine Glucose POC Glucose 134 H 141 H Calcium Phosphorus Magnesium Direct Bilirubin AST Alkaline Phosphatase C-Reactive Protein Serum Total Protein Total Protein Albumin Prealbumin Nwmsz-5-Ohlmturep Rzbus-7-Jlznrapfc Gamma Globulins PEP Interpretation Triglycerides 185 H Urine pH Urine Creatinine Urine Total Protein Vancomycin Trough Digoxin Crossmatch 10/26/19 10/27/19 10/27/19 Unknown 04:30 11:33 WBC RBC Hgb Hct MCV MCH MCHC RDW Plt Count Lymph % (Auto) Saunders % (Auto) Lymph # Saunders # Seg Neutrophils % Seg Neuts % (Manual) Lymphocytes % (Manual) Seg Neutrophils # Seg Neutrophils # Man Lymphocytes # (Manual) Monocytes # (Manual) POC ABG pH ABG pH POC ABG pCO2 POC ABG pO2 ABG pO2 ABG HCO3 ABG Base Excess ABG Hemoglobin Oxyhemoglobin Sodium Potassium 3.2 L Chloride Carbon Dioxide BUN 23 H Creatinine 0.6 L Glucose 130 H POC Glucose 131 H Calcium 7.9 L Phosphorus Magnesium Direct Bilirubin AST Alkaline Phosphatase C-Reactive Protein Serum Total Protein Total Protein Albumin Prealbumin Aboec-1-Aidzwjzbq Grvpn-9-Jagrateip Gamma Globulins PEP Interpretation Triglycerides Urine pH 9.0 H Urine Creatinine Urine Total Protein Vancomycin Trough Digoxin Crossmatch 10/27/19 10/28/19 10/28/19 17:45 05:25 05:49 WBC RBC 2.85 L Hgb 8.3 L Hct 26.8 L MCV MCH MCHC 31 L RDW 17.4 H Plt Count Lymph % (Auto) 8.9 L Saunders % (Auto) 14.3 H Lymph # 0.8 L Saunders # 1.3 H Seg Neutrophils % 76.5 H Seg Neuts % (Manual) Lymphocytes % (Manual) Seg Neutrophils # Seg Neutrophils # Man Lymphocytes # (Manual) Monocytes # (Manual) POC ABG pH ABG pH POC ABG pCO2 POC ABG pO2 ABG pO2 ABG HCO3 ABG Base Excess ABG Hemoglobin Oxyhemoglobin Sodium Potassium Chloride Carbon Dioxide BUN Creatinine Glucose POC Glucose 121 H 120 H Calcium Phosphorus Magnesium Direct Bilirubin AST Alkaline Phosphatase C-Reactive Protein Serum Total Protein Total Protein Albumin Prealbumin Hmfcl-5-Egdyhqnyz Ghlry-0-Ckemwnrbg Gamma Globulins PEP Interpretation Triglycerides Urine pH Urine Creatinine Urine Total Protein Vancomycin Trough Digoxin Crossmatch 10/28/19 10/28/19 10/28/19 07:19 12:07 18:21 WBC RBC Hgb Hct MCV MCH MCHC RDW Plt Count Lymph % (Auto) Saunders % (Auto) Lymph # Saunders # Seg Neutrophils % Seg Neuts % (Manual) Lymphocytes % (Manual) Seg Neutrophils # Seg Neutrophils # Man Lymphocytes # (Manual) Monocytes # (Manual) POC ABG pH ABG pH POC ABG pCO2 POC ABG pO2 ABG pO2 ABG HCO3 ABG Base Excess ABG Hemoglobin Oxyhemoglobin Sodium Potassium Chloride Carbon Dioxide BUN 23 H Creatinine 0.5 L Glucose 129 H POC Glucose 127 H 130 H Calcium 8.0 L Phosphorus Magnesium Direct Bilirubin AST Alkaline Phosphatase C-Reactive Protein Serum Total Protein Total Protein Albumin Prealbumin Feenx-6-Awbeerhtl Hsdvi-2-Auluoxqqh Gamma Globulins PEP Interpretation Triglycerides Urine pH Urine Creatinine Urine Total Protein Vancomycin Trough Digoxin Crossmatch 10/28/19 10/29/19 10/29/19 23:30 05:30 05:30 WBC 11.2 H RBC 3.36 L Hgb 9.7 L Hct 29.4 L MCV MCH MCHC RDW 16.7 H Plt Count Lymph % (Auto) Saunders % (Auto) 16.0 H Lymph # Saunders # 1.8 H Seg Neutrophils % 70.2 H Seg Neuts % (Manual) Lymphocytes % (Manual) Seg Neutrophils # 7.9 H Seg Neutrophils # Man Lymphocytes # (Manual) Monocytes # (Manual) POC ABG pH ABG pH POC ABG pCO2 POC ABG pO2 ABG pO2 ABG HCO3 ABG Base Excess ABG Hemoglobin Oxyhemoglobin Sodium Potassium Chloride Carbon Dioxide BUN 23 H Creatinine 0.5 L Glucose POC Glucose 130 H Calcium 8.3 L Phosphorus Magnesium Direct Bilirubin AST Alkaline Phosphatase C-Reactive Protein Serum Total Protein Total Protein Albumin Prealbumin Mweva-2-Gfixctjvd Qkmbn-3-Lqyywkkxc Gamma Globulins PEP Interpretation Triglycerides Urine pH Urine Creatinine Urine Total Protein Vancomycin Trough Digoxin Crossmatch 10/29/19 10/29/19 10/29/19 05:52 13:10 18:02 WBC RBC Hgb Hct MCV MCH MCHC RDW Plt Count Lymph % (Auto) Saunders % (Auto) Lymph # Saunders # Seg Neutrophils % Seg Neuts % (Manual) Lymphocytes % (Manual) Seg Neutrophils # Seg Neutrophils # Man Lymphocytes # (Manual) Monocytes # (Manual) POC ABG pH ABG pH POC ABG pCO2 POC ABG pO2 ABG pO2 ABG HCO3 ABG Base Excess ABG Hemoglobin Oxyhemoglobin Sodium Potassium Chloride Carbon Dioxide BUN Creatinine Glucose POC Glucose 111 H 140 H 140 H Calcium Phosphorus Magnesium Direct Bilirubin AST Alkaline Phosphatase C-Reactive Protein Serum Total Protein Total Protein Albumin Prealbumin Oazil-0-Ympgdzbja Clstr-7-Egwqfyinm Gamma Globulins PEP Interpretation Triglycerides Urine pH Urine Creatinine Urine Total Protein Vancomycin Trough Digoxin Crossmatch 10/29/19 10/30/19 10/30/19 23:58 01:05 05:15 WBC RBC Hgb Hct MCV MCH MCHC RDW Plt Count Lymph % (Auto) Saunders % (Auto) Lymph # Saunders # Seg Neutrophils % Seg Neuts % (Manual) Lymphocytes % (Manual) Seg Neutrophils # Seg Neutrophils # Man Lymphocytes # (Manual) Monocytes # (Manual) POC ABG pH ABG pH POC ABG pCO2 62.0 H POC ABG pO2 168 H ABG pO2 ABG HCO3 ABG Base Excess ABG Hemoglobin Oxyhemoglobin Sodium 147 H Potassium Chloride 107.8 H Carbon Dioxide BUN 26 H Creatinine 0.5 L Glucose 139 H POC Glucose 161 H Calcium Phosphorus Magnesium 2.40 H Direct Bilirubin AST Alkaline Phosphatase C-Reactive Protein Serum Total Protein Total Protein Albumin Prealbumin Broui-2-Trjkoigpj Xitvc-1-Tpiwdxwrr Gamma Globulins PEP Interpretation Triglycerides Urine pH Urine Creatinine Urine Total Protein Vancomycin Trough Digoxin Crossmatch 10/30/19 10/30/19 10/30/19 05:15 06:32 09:44 WBC 13.8 H RBC 3.59 L Hgb 10.1 L Hct 32.4 L MCV MCH MCHC 31 L RDW 17.4 H Plt Count Lymph % (Auto) 11.2 L Saunders % (Auto) 13.6 H Lymph # Saunders # 1.9 H Seg Neutrophils % 75.1 H Seg Neuts % (Manual) Lymphocytes % (Manual) Seg Neutrophils # 10.4 H Seg Neutrophils # Man Lymphocytes # (Manual) Monocytes # (Manual) POC ABG pH ABG pH POC ABG pCO2 51.7 H POC ABG pO2 111 H ABG pO2 ABG HCO3 ABG Base Excess ABG Hemoglobin Oxyhemoglobin Sodium Potassium Chloride Carbon Dioxide BUN Creatinine Glucose POC Glucose 141 H Calcium Phosphorus Magnesium Direct Bilirubin AST Alkaline Phosphatase C-Reactive Protein Serum Total Protein Total Protein Albumin Prealbumin Mqlsr-9-Cghnwbpel Nmuuz-5-Mfladvtxc Gamma Globulins PEP Interpretation Triglycerides Urine pH Urine Creatinine Urine Total Protein Vancomycin Trough Digoxin Crossmatch 10/30/19 10/31/19 10/31/19 18:10 04:18 04:18 WBC 11.7 H RBC 3.11 L Hgb 9.0 L Hct 27.9 L MCV MCH MCHC RDW 17.1 H Plt Count Lymph % (Auto) Saunders % (Auto) Lymph # Saunders # Seg Neutrophils % Seg Neuts % (Manual) Lymphocytes % (Manual) Seg Neutrophils # Seg Neutrophils # Man Lymphocytes # (Manual) Monocytes # (Manual) POC ABG pH ABG pH POC ABG pCO2 POC ABG pO2 ABG pO2 ABG HCO3 ABG Base Excess ABG Hemoglobin Oxyhemoglobin Sodium 148 H Potassium Chloride 108.7 H Carbon Dioxide BUN 37 H Creatinine 0.7 L Glucose 102 H POC Glucose 131 H Calcium Phosphorus Magnesium Direct Bilirubin AST Alkaline Phosphatase C-Reactive Protein Serum Total Protein Total Protein Albumin Prealbumin Vqxea-8-Ejamtbluc Gztnc-4-Fnymavlse Gamma Globulins PEP Interpretation Triglycerides Urine pH Urine Creatinine Urine Total Protein Vancomycin Trough Digoxin Crossmatch 10/31/19 10/31/19 10/31/19 11:32 12:55 18:10 WBC RBC Hgb Hct MCV MCH MCHC RDW Plt Count Lymph % (Auto) Saunders % (Auto) Lymph # Saunders # Seg Neutrophils % Seg Neuts % (Manual) Lymphocytes % (Manual) Seg Neutrophils # Seg Neutrophils # Man Lymphocytes # (Manual) Monocytes # (Manual) POC ABG pH ABG pH POC ABG pCO2 57.9 H POC ABG pO2 135 H ABG pO2 ABG HCO3 ABG Base Excess ABG Hemoglobin Oxyhemoglobin Sodium Potassium Chloride Carbon Dioxide BUN Creatinine Glucose POC Glucose 120 H Calcium Phosphorus Magnesium Direct Bilirubin AST Alkaline Phosphatase C-Reactive Protein Serum Total Protein Total Protein Albumin Prealbumin Xbyrl-3-Dsmnbzsdo Faplz-4-Mjepahwia Gamma Globulins PEP Interpretation Triglycerides Urine pH Urine Creatinine Urine Total Protein Vancomycin Trough 41.7 H Digoxin Crossmatch 10/31/19 11/01/19 11/01/19 23:08 05:30 05:30 WBC 14.6 H RBC 3.13 L Hgb 8.9 L Hct 27.7 L MCV MCH MCHC RDW 17.0 H Plt Count Lymph % (Auto) Saunders % (Auto) Lymph # Saunders # Seg Neutrophils % Seg Neuts % (Manual) Lymphocytes % (Manual) Seg Neutrophils # Seg Neutrophils # Man Lymphocytes # (Manual) Monocytes # (Manual) POC ABG pH ABG pH POC ABG pCO2 POC ABG pO2 ABG pO2 ABG HCO3 ABG Base Excess ABG Hemoglobin Oxyhemoglobin Sodium 149 H Potassium Chloride 109.0 H Carbon Dioxide BUN 26 H Creatinine 0.7 L Glucose 129 H POC Glucose 109 H Calcium Phosphorus Magnesium Direct Bilirubin AST Alkaline Phosphatase C-Reactive Protein Serum Total Protein Total Protein Albumin Prealbumin Wmfay-7-Aqjzqiqdo Dfksj-0-Aecjycfrf Gamma Globulins PEP Interpretation Triglycerides Urine pH Urine Creatinine Urine Total Protein Vancomycin Trough Digoxin Crossmatch 11/01/19 11/01/19 11/01/19 06:09 06:10 11:52 WBC RBC Hgb Hct MCV MCH MCHC RDW Plt Count Lymph % (Auto) Saunders % (Auto) Lymph # Saunders # Seg Neutrophils % Seg Neuts % (Manual) Lymphocytes % (Manual) Seg Neutrophils # Seg Neutrophils # Man Lymphocytes # (Manual) Monocytes # (Manual) POC ABG pH ABG pH POC ABG pCO2 51.3 H POC ABG pO2 71 L ABG pO2 ABG HCO3 ABG Base Excess ABG Hemoglobin Oxyhemoglobin Sodium Potassium Chloride Carbon Dioxide BUN Creatinine Glucose POC Glucose 113 H 106 H Calcium Phosphorus Magnesium Direct Bilirubin AST Alkaline Phosphatase C-Reactive Protein Serum Total Protein Total Protein Albumin Prealbumin Bgfro-3-Wbziolhdd Ngruh-3-Nfyebaswk Gamma Globulins PEP Interpretation Triglycerides Urine pH Urine Creatinine Urine Total Protein Vancomycin Trough Digoxin Crossmatch 11/01/19 11/02/19 11/02/19 18:18 03:40 03:40 WBC RBC 2.36 L Hgb 7.2 L Hct 20.8 L D MCV MCH MCHC 35 H RDW 16.8 H Plt Count Lymph % (Auto) Saunders % (Auto) Lymph # Saunders # Seg Neutrophils % Seg Neuts % (Manual) Lymphocytes % (Manual) Seg Neutrophils # Seg Neutrophils # Man Lymphocytes # (Manual) Monocytes # (Manual) POC ABG pH ABG pH POC ABG pCO2 POC ABG pO2 ABG pO2 ABG HCO3 ABG Base Excess ABG Hemoglobin Oxyhemoglobin Sodium 157 H D Potassium 3.0 L D Chloride 117.2 H Carbon Dioxide BUN 23 H Creatinine 0.6 L Glucose 101 H POC Glucose 120 H Calcium 6.4 L D Phosphorus Magnesium Direct Bilirubin AST Alkaline Phosphatase C-Reactive Protein Serum Total Protein Total Protein Albumin Prealbumin Zcvae-2-Orwpxruhw Btryw-5-Rzhevvxdm Gamma Globulins PEP Interpretation Triglycerides Urine pH Urine Creatinine Urine Total Protein Vancomycin Trough Digoxin Crossmatch 11/02/19 11/02/19 11/02/19 04:48 05:30 12:43 WBC RBC Hgb Hct MCV MCH MCHC RDW Plt Count Lymph % (Auto) Saunders % (Auto) Lymph # Saunders # Seg Neutrophils % Seg Neuts % (Manual) Lymphocytes % (Manual) Seg Neutrophils # Seg Neutrophils # Man Lymphocytes # (Manual) Monocytes # (Manual) POC ABG pH ABG pH POC ABG pCO2 50.1 H POC ABG pO2 74 L ABG pO2 ABG HCO3 ABG Base Excess ABG Hemoglobin Oxyhemoglobin Sodium 149 H D Potassium Chloride 110.0 H Carbon Dioxide BUN 23 H Creatinine 0.6 L Glucose POC Glucose 109 H Calcium 8.1 L D Phosphorus Magnesium 2.40 H Direct Bilirubin AST Alkaline Phosphatase C-Reactive Protein Serum Total Protein Total Protein Albumin Prealbumin Txahp-3-Vfubwneyv Jncvr-1-Kapidsegr Gamma Globulins PEP Interpretation Triglycerides Urine pH Urine Creatinine Urine Total Protein Vancomycin Trough Digoxin Crossmatch 11/03/19 11/03/19 11/03/19 03:42 03:42 04:13 WBC RBC 2.93 L Hgb 8.5 L Hct 25.8 L MCV MCH MCHC RDW 16.9 H Plt Count Lymph % (Auto) Saunders % (Auto) Lymph # Saunders # Seg Neutrophils % Seg Neuts % (Manual) Lymphocytes % (Manual) Seg Neutrophils # Seg Neutrophils # Man Lymphocytes # (Manual) Monocytes # (Manual) POC ABG pH 7.540 H ABG pH POC ABG pCO2 POC ABG pO2 51 L ABG pO2 ABG HCO3 ABG Base Excess ABG Hemoglobin Oxyhemoglobin Sodium 147 H Potassium 3.5 L D Chloride 108.6 H Carbon Dioxide BUN Creatinine 0.6 L Glucose 109 H POC Glucose Calcium 8.3 L Phosphorus Magnesium Direct Bilirubin AST Alkaline Phosphatase C-Reactive Protein Serum Total Protein Total Protein Albumin Prealbumin Dohfi-4-Nrefwates Fmnkl-5-Xnngbecxw Gamma Globulins PEP Interpretation Triglycerides Urine pH Urine Creatinine Urine Total Protein Vancomycin Trough Digoxin Crossmatch 11/03/19 11/03/19 11/03/19 04:28 12:04 23:02 WBC RBC Hgb Hct MCV MCH MCHC RDW Plt Count Lymph % (Auto) Saunders % (Auto) Lymph # Saunders # Seg Neutrophils % Seg Neuts % (Manual) Lymphocytes % (Manual) Seg Neutrophils # Seg Neutrophils # Man Lymphocytes # (Manual) Monocytes # (Manual) POC ABG pH ABG pH POC ABG pCO2 45.4 H POC ABG pO2 ABG pO2 ABG HCO3 ABG Base Excess ABG Hemoglobin Oxyhemoglobin Sodium Potassium Chloride Carbon Dioxide BUN Creatinine Glucose POC Glucose 109 H 111 H Calcium Phosphorus Magnesium Direct Bilirubin AST Alkaline Phosphatase C-Reactive Protein Serum Total Protein Total Protein Albumin Prealbumin Evzgn-9-Vybqajeid Svnqs-3-Wzvujlnwr Gamma Globulins PEP Interpretation Triglycerides Urine pH Urine Creatinine Urine Total Protein Vancomycin Trough Digoxin Crossmatch 11/04/19 11/04/19 11/04/19 05:00 05:00 05:19 WBC RBC 2.96 L Hgb 8.6 L Hct 25.5 L MCV MCH MCHC RDW 16.7 H Plt Count Lymph % (Auto) Saunders % (Auto) Lymph # Saunders # Seg Neutrophils % Seg Neuts % (Manual) Lymphocytes % (Manual) Seg Neutrophils # Seg Neutrophils # Man Lymphocytes # (Manual) Monocytes # (Manual) POC ABG pH ABG pH POC ABG pCO2 POC ABG pO2 ABG pO2 ABG HCO3 ABG Base Excess ABG Hemoglobin Oxyhemoglobin Sodium Potassium 3.5 L Chloride Carbon Dioxide BUN Creatinine 0.5 L Glucose 111 H POC Glucose 106 H Calcium 8.1 L Phosphorus Magnesium Direct Bilirubin AST Alkaline Phosphatase C-Reactive Protein Serum Total Protein Total Protein Albumin Prealbumin Zliah-2-Nbdscridm Cohjz-5-Zhiegxvfm Gamma Globulins PEP Interpretation Triglycerides Urine pH Urine Creatinine Urine Total Protein Vancomycin Trough Digoxin Crossmatch 11/04/19 11/05/19 11/05/19 12:40 00:28 04:19 WBC 12.4 H RBC 2.98 L Hgb 8.5 L Hct 25.5 L MCV MCH MCHC RDW 16.6 H Plt Count Lymph % (Auto) Saunders % (Auto) Lymph # Saunders # Seg Neutrophils % Seg Neuts % (Manual) Lymphocytes % (Manual) Seg Neutrophils # Seg Neutrophils # Man Lymphocytes # (Manual) Monocytes # (Manual) POC ABG pH ABG pH POC ABG pCO2 POC ABG pO2 ABG pO2 ABG HCO3 ABG Base Excess ABG Hemoglobin Oxyhemoglobin Sodium Potassium Chloride Carbon Dioxide BUN Creatinine Glucose POC Glucose 109 H 132 H Calcium Phosphorus Magnesium Direct Bilirubin AST Alkaline Phosphatase C-Reactive Protein Serum Total Protein Total Protein Albumin Prealbumin Bhezk-2-Eewnqtyhq Yakgz-0-Dqusznbge Gamma Globulins PEP Interpretation Triglycerides Urine pH Urine Creatinine Urine Total Protein Vancomycin Trough Digoxin Crossmatch 11/05/19 11/05/19 11/05/19 04:19 05:40 13:14 WBC RBC Hgb Hct MCV MCH MCHC RDW Plt Count Lymph % (Auto) Saunders % (Auto) Lymph # Saunders # Seg Neutrophils % Seg Neuts % (Manual) Lymphocytes % (Manual) Seg Neutrophils # Seg Neutrophils # Man Lymphocytes # (Manual) Monocytes # (Manual) POC ABG pH ABG pH POC ABG pCO2 POC ABG pO2 ABG pO2 ABG HCO3 ABG Base Excess ABG Hemoglobin Oxyhemoglobin Sodium Potassium 3.4 L Chloride Carbon Dioxide BUN Creatinine 0.4 L Glucose 106 H POC Glucose 136 H 145 H Calcium 8.2 L Phosphorus Magnesium Direct Bilirubin AST Alkaline Phosphatase C-Reactive Protein Serum Total Protein Total Protein Albumin Prealbumin Csnin-1-Cokedodyl Wvulk-8-Itrqdflhe Gamma Globulins PEP Interpretation Triglycerides Urine pH Urine Creatinine Urine Total Protein Vancomycin Trough Digoxin Crossmatch 11/05/19 11/05/19 11/06/19 18:29 23:42 05:00 WBC 12.2 H RBC 2.89 L Hgb 8.2 L Hct 24.9 L MCV MCH MCHC RDW 16.4 H Plt Count Lymph % (Auto) Saunders % (Auto) Lymph # Saunders # Seg Neutrophils % Seg Neuts % (Manual) Lymphocytes % (Manual) Seg Neutrophils # Seg Neutrophils # Man Lymphocytes # (Manual) Monocytes # (Manual) POC ABG pH ABG pH POC ABG pCO2 POC ABG pO2 ABG pO2 ABG HCO3 ABG Base Excess ABG Hemoglobin Oxyhemoglobin Sodium Potassium Chloride Carbon Dioxide BUN Creatinine Glucose POC Glucose 138 H 117 H Calcium Phosphorus Magnesium Direct Bilirubin AST Alkaline Phosphatase C-Reactive Protein Serum Total Protein Total Protein Albumin Prealbumin Ejvka-7-Qltumeppg Kwgvs-6-Xynrxqbov Gamma Globulins PEP Interpretation Triglycerides Urine pH Urine Creatinine Urine Total Protein Vancomycin Trough Digoxin Crossmatch 11/06/19 11/06/19 11/06/19 05:00 05:22 17:39 WBC RBC Hgb Hct MCV MCH MCHC RDW Plt Count Lymph % (Auto) Saunders % (Auto) Lymph # Saunders # Seg Neutrophils % Seg Neuts % (Manual) Lymphocytes % (Manual) Seg Neutrophils # Seg Neutrophils # Man Lymphocytes # (Manual) Monocytes # (Manual) POC ABG pH ABG pH POC ABG pCO2 POC ABG pO2 ABG pO2 ABG HCO3 ABG Base Excess ABG Hemoglobin Oxyhemoglobin Sodium Potassium Chloride Carbon Dioxide BUN Creatinine 0.4 L Glucose 114 H POC Glucose 121 H 110 H Calcium 8.2 L Phosphorus Magnesium Direct Bilirubin AST Alkaline Phosphatase C-Reactive Protein Serum Total Protein Total Protein Albumin Prealbumin Yhgru-3-Nuyiitcnj Vqltv-8-Cufyqnryz Gamma Globulins PEP Interpretation Triglycerides Urine pH Urine Creatinine Urine Total Protein Vancomycin Trough Digoxin Crossmatch 11/06/19 11/07/19 11/07/19 23:29 04:06 04:06 WBC 13.0 H RBC 2.80 L Hgb 7.9 L Hct 24.0 L MCV MCH MCHC RDW 16.5 H Plt Count Lymph % (Auto) 7.0 L Saunders % (Auto) Lymph # 0.9 L Saunders # Seg Neutrophils % 86.3 H Seg Neuts % (Manual) Lymphocytes % (Manual) Seg Neutrophils # 11.2 H Seg Neutrophils # Man Lymphocytes # (Manual) Monocytes # (Manual) POC ABG pH ABG pH POC ABG pCO2 POC ABG pO2 ABG pO2 ABG HCO3 ABG Base Excess ABG Hemoglobin Oxyhemoglobin Sodium Potassium Chloride Carbon Dioxide BUN Creatinine 0.4 L Glucose 110 H POC Glucose 113 H Calcium 8.2 L Phosphorus Magnesium Direct Bilirubin AST Alkaline Phosphatase C-Reactive Protein Serum Total Protein Total Protein Albumin Prealbumin Gieon-4-Ykekzazcy Wasbw-3-Unlxhiaej Gamma Globulins PEP Interpretation Triglycerides Urine pH Urine Creatinine Urine Total Protein Vancomycin Trough Digoxin Crossmatch 11/07/19 11/07/19 11/07/19 05:43 12:47 18:19 WBC RBC Hgb Hct MCV MCH MCHC RDW Plt Count Lymph % (Auto) Saunders % (Auto) Lymph # Saunders # Seg Neutrophils % Seg Neuts % (Manual) Lymphocytes % (Manual) Seg Neutrophils # Seg Neutrophils # Man Lymphocytes # (Manual) Monocytes # (Manual) POC ABG pH ABG pH POC ABG pCO2 POC ABG pO2 ABG pO2 ABG HCO3 ABG Base Excess ABG Hemoglobin Oxyhemoglobin Sodium Potassium Chloride Carbon Dioxide BUN Creatinine Glucose POC Glucose 114 H 120 H 112 H Calcium Phosphorus Magnesium Direct Bilirubin AST Alkaline Phosphatase C-Reactive Protein Serum Total Protein Total Protein Albumin Prealbumin Nhmau-2-Muslbqnkc Oortd-0-Xeqharrwv Gamma Globulins PEP Interpretation Triglycerides Urine pH Urine Creatinine Urine Total Protein Vancomycin Trough Digoxin Crossmatch 11/08/19 11/08/19 11/08/19 03:45 03:45 11:43 WBC 12.7 H RBC 2.82 L Hgb 7.8 L Hct 24.4 L MCV MCH MCHC RDW 16.5 H Plt Count Lymph % (Auto) 9.4 L Saunders % (Auto) Lymph # Saunders # 0.9 H Seg Neutrophils % 83.0 H Seg Neuts % (Manual) Lymphocytes % (Manual) Seg Neutrophils # 10.6 H Seg Neutrophils # Man Lymphocytes # (Manual) Monocytes # (Manual) POC ABG pH ABG pH POC ABG pCO2 POC ABG pO2 ABG pO2 ABG HCO3 ABG Base Excess ABG Hemoglobin Oxyhemoglobin Sodium Potassium Chloride Carbon Dioxide BUN Creatinine 0.4 L Glucose 107 H POC Glucose 118 H Calcium Phosphorus Magnesium Direct Bilirubin AST Alkaline Phosphatase C-Reactive Protein Serum Total Protein Total Protein Albumin Prealbumin Pvbbd-5-Mgujpdlhh Uzpnr-3-Vrjlzrzkd Gamma Globulins PEP Interpretation Triglycerides Urine pH Urine Creatinine Urine Total Protein Vancomycin Trough Digoxin Crossmatch 11/08/19 11/09/19 11/09/19 23:45 12:41 12:56 WBC RBC Hgb Hct MCV MCH MCHC RDW Plt Count Lymph % (Auto) Saunders % (Auto) Lymph # Saunders # Seg Neutrophils % Seg Neuts % (Manual) Lymphocytes % (Manual) Seg Neutrophils # Seg Neutrophils # Man Lymphocytes # (Manual) Monocytes # (Manual) POC ABG pH ABG pH POC ABG pCO2 POC ABG pO2 ABG pO2 ABG HCO3 ABG Base Excess ABG Hemoglobin Oxyhemoglobin Sodium Potassium Chloride Carbon Dioxide BUN Creatinine Glucose POC Glucose 113 H 107 H 122 H Calcium Phosphorus Magnesium Direct Bilirubin AST Alkaline Phosphatase C-Reactive Protein Serum Total Protein Total Protein Albumin Prealbumin Yxvmx-5-Ottpkhwis Rhfbs-9-Xjmavztmb Gamma Globulins PEP Interpretation Triglycerides Urine pH Urine Creatinine Urine Total Protein Vancomycin Trough Digoxin Crossmatch 11/10/19 11/10/19 11/11/19 05:12 12:20 12:13 WBC RBC Hgb Hct MCV MCH MCHC RDW Plt Count Lymph % (Auto) Saunders % (Auto) Lymph # Saunders # Seg Neutrophils % Seg Neuts % (Manual) Lymphocytes % (Manual) Seg Neutrophils # Seg Neutrophils # Man Lymphocytes # (Manual) Monocytes # (Manual) POC ABG pH ABG pH POC ABG pCO2 POC ABG pO2 ABG pO2 ABG HCO3 ABG Base Excess ABG Hemoglobin Oxyhemoglobin Sodium Potassium Chloride Carbon Dioxide BUN Creatinine Glucose POC Glucose 127 H 125 H 107 H Calcium Phosphorus Magnesium Direct Bilirubin AST Alkaline Phosphatase C-Reactive Protein Serum Total Protein Total Protein Albumin Prealbumin Qirzo-6-Xrgyzyggu Hijqw-3-Newpbrjot Gamma Globulins PEP Interpretation Triglycerides Urine pH Urine Creatinine Urine Total Protein Vancomycin Trough Digoxin Crossmatch 11/11/19 11/11/19 11/12/19 17:29 22:20 06:00 WBC RBC 2.77 L Hgb 7.8 L Hct 23.4 L MCV MCH MCHC RDW 16.6 H Plt Count Lymph % (Auto) 11.9 L Saunders % (Auto) 8.9 H Lymph # Saunders # 0.9 H Seg Neutrophils % 78.2 H Seg Neuts % (Manual) Lymphocytes % (Manual) Seg Neutrophils # 8.2 H Seg Neutrophils # Man Lymphocytes # (Manual) Monocytes # (Manual) POC ABG pH ABG pH POC ABG pCO2 POC ABG pO2 ABG pO2 ABG HCO3 ABG Base Excess ABG Hemoglobin Oxyhemoglobin Sodium Potassium Chloride Carbon Dioxide BUN Creatinine Glucose POC Glucose 120 H 109 H Calcium Phosphorus Magnesium Direct Bilirubin AST Alkaline Phosphatase C-Reactive Protein Serum Total Protein Total Protein Albumin Prealbumin Gqawr-1-Uoqpichdc Nuymq-6-Yygmnekrs Gamma Globulins PEP Interpretation Triglycerides Urine pH Urine Creatinine Urine Total Protein Vancomycin Trough Digoxin Crossmatch 11/12/19 11/12/19 11/12/19 07:52 11:58 23:44 WBC RBC Hgb Hct MCV MCH MCHC RDW Plt Count Lymph % (Auto) Saunders % (Auto) Lymph # Saunders # Seg Neutrophils % Seg Neuts % (Manual) Lymphocytes % (Manual) Seg Neutrophils # Seg Neutrophils # Man Lymphocytes # (Manual) Monocytes # (Manual) POC ABG pH ABG pH POC ABG pCO2 POC ABG pO2 ABG pO2 ABG HCO3 ABG Base Excess ABG Hemoglobin Oxyhemoglobin Sodium Potassium Chloride Carbon Dioxide BUN Creatinine Glucose POC Glucose 120 H 140 H 116 H Calcium Phosphorus Magnesium Direct Bilirubin AST Alkaline Phosphatase C-Reactive Protein Serum Total Protein Total Protein Albumin Prealbumin Xibuq-9-Oqvgjflcp Etnsh-8-Tcrcrlzgf Gamma Globulins PEP Interpretation Triglycerides Urine pH Urine Creatinine Urine Total Protein Vancomycin Trough Digoxin Crossmatch 11/13/19 11/13/19 11/13/19 04:33 04:33 13:43 WBC 11.2 H RBC 2.90 L Hgb 8.1 L Hct 24.5 L MCV MCH MCHC RDW 16.5 H Plt Count Lymph % (Auto) 10.1 L Saunders % (Auto) 7.6 H Lymph # 1.1 L Saunders # 0.9 H Seg Neutrophils % 81.1 H Seg Neuts % (Manual) Lymphocytes % (Manual) Seg Neutrophils # 9.1 H Seg Neutrophils # Man Lymphocytes # (Manual) Monocytes # (Manual) POC ABG pH ABG pH POC ABG pCO2 POC ABG pO2 ABG pO2 ABG HCO3 ABG Base Excess ABG Hemoglobin Oxyhemoglobin Sodium 135 L Potassium Chloride 91.9 L Carbon Dioxide BUN Creatinine 0.6 L Glucose POC Glucose 122 H Calcium Phosphorus Magnesium Direct Bilirubin AST Alkaline Phosphatase C-Reactive Protein Serum Total Protein Total Protein Albumin Prealbumin Hoycj-3-Mtcakhxww Poqdl-2-Citbawsul Gamma Globulins PEP Interpretation Triglycerides Urine pH Urine Creatinine Urine Total Protein Vancomycin Trough Digoxin Crossmatch 11/13/19 11/14/19 11/15/19 17:57 12:35 07:10 WBC 14.8 H RBC 2.89 L Hgb 7.8 L Hct 24.2 L MCV MCH 27 L MCHC RDW 16.9 H Plt Count Lymph % (Auto) Saunders % (Auto) Lymph # Saunders # Seg Neutrophils % Seg Neuts % (Manual) Lymphocytes % (Manual) Seg Neutrophils # Seg Neutrophils # Man Lymphocytes # (Manual) Monocytes # (Manual) POC ABG pH ABG pH POC ABG pCO2 POC ABG pO2 ABG pO2 ABG HCO3 ABG Base Excess ABG Hemoglobin Oxyhemoglobin Sodium Potassium Chloride Carbon Dioxide BUN Creatinine Glucose POC Glucose 127 H 148 H Calcium Phosphorus Magnesium Direct Bilirubin AST Alkaline Phosphatase C-Reactive Protein Serum Total Protein Total Protein Albumin Prealbumin Dbkhv-0-Zwtlbiewz Djdyr-7-Ueuqrwcfa Gamma Globulins PEP Interpretation Triglycerides Urine pH Urine Creatinine Urine Total Protein Vancomycin Trough Digoxin Crossmatch 11/15/19 11/15/19 11/16/19 07:10 20:16 10:26 WBC 14.4 H RBC 2.79 L Hgb 7.6 L Hct 23.5 L MCV MCH 27 L MCHC RDW 17.0 H Plt Count Lymph % (Auto) Saunders % (Auto) Lymph # Saunders # Seg Neutrophils % Seg Neuts % (Manual) Lymphocytes % (Manual) Seg Neutrophils # Seg Neutrophils # Man Lymphocytes # (Manual) Monocytes # (Manual) POC ABG pH ABG pH POC ABG pCO2 POC ABG pO2 ABG pO2 ABG HCO3 ABG Base Excess ABG Hemoglobin Oxyhemoglobin Sodium 133 L 136 L Potassium 3.5 L Chloride 93.7 L 97.4 L Carbon Dioxide BUN Creatinine 0.6 L 0.6 L Glucose 130 H POC Glucose Calcium Phosphorus Magnesium Direct Bilirubin AST Alkaline Phosphatase C-Reactive Protein Serum Total Protein Total Protein Albumin Prealbumin Txkya-1-Hiqitbbvw Qqdoe-0-Xrsejgbbk Gamma Globulins PEP Interpretation Triglycerides Urine pH Urine Creatinine Urine Total Protein Vancomycin Trough Digoxin Crossmatch 11/16/19 11/17/19 11/17/19 13:01 00:40 07:22 WBC 14.0 H RBC 2.71 L Hgb 7.4 L Hct 22.8 L MCV MCH 27 L MCHC RDW 17.2 H Plt Count Lymph % (Auto) Saunders % (Auto) Lymph # Saunders # Seg Neutrophils % Seg Neuts % (Manual) Lymphocytes % (Manual) Seg Neutrophils # Seg Neutrophils # Man Lymphocytes # (Manual) Monocytes # (Manual) POC ABG pH ABG pH POC ABG pCO2 POC ABG pO2 ABG pO2 ABG HCO3 ABG Base Excess ABG Hemoglobin Oxyhemoglobin Sodium Potassium Chloride Carbon Dioxide BUN Creatinine Glucose POC Glucose 117 H 124 H Calcium Phosphorus Magnesium Direct Bilirubin AST Alkaline Phosphatase C-Reactive Protein Serum Total Protein Total Protein Albumin Prealbumin Bnyrj-1-Rqfegdrjg Ugmfy-0-Qgwqbuvwj Gamma Globulins PEP Interpretation Triglycerides Urine pH Urine Creatinine Urine Total Protein Vancomycin Trough Digoxin Crossmatch 11/17/19 11/17/19 11/17/19 07:22 12:00 17:57 WBC RBC Hgb Hct MCV MCH MCHC RDW Plt Count Lymph % (Auto) Saunders % (Auto) Lymph # Saunders # Seg Neutrophils % Seg Neuts % (Manual) Lymphocytes % (Manual) Seg Neutrophils # Seg Neutrophils # Man Lymphocytes # (Manual) Monocytes # (Manual) POC ABG pH ABG pH POC ABG pCO2 POC ABG pO2 ABG pO2 ABG HCO3 ABG Base Excess ABG Hemoglobin Oxyhemoglobin Sodium 136 L Potassium Chloride 96.1 L Carbon Dioxide BUN 7 L Creatinine 0.5 L Glucose POC Glucose 130 H 111 H Calcium Phosphorus Magnesium Direct Bilirubin AST Alkaline Phosphatase C-Reactive Protein Serum Total Protein Total Protein Albumin Prealbumin Ktgzf-5-Fnrbujatv Zkpio-1-Mileffwws Gamma Globulins PEP Interpretation Triglycerides Urine pH Urine Creatinine Urine Total Protein Vancomycin Trough Digoxin Crossmatch 11/18/19 11/18/19 11/18/19 06:03 12:12 17:54 WBC RBC Hgb Hct MCV MCH MCHC RDW Plt Count Lymph % (Auto) Saunders % (Auto) Lymph # Saunders # Seg Neutrophils % Seg Neuts % (Manual) Lymphocytes % (Manual) Seg Neutrophils # Seg Neutrophils # Man Lymphocytes # (Manual) Monocytes # (Manual) POC ABG pH ABG pH POC ABG pCO2 POC ABG pO2 ABG pO2 ABG HCO3 ABG Base Excess ABG Hemoglobin Oxyhemoglobin Sodium Potassium Chloride Carbon Dioxide BUN Creatinine Glucose POC Glucose 113 H 124 H 128 H Calcium Phosphorus Magnesium Direct Bilirubin AST Alkaline Phosphatase C-Reactive Protein Serum Total Protein Total Protein Albumin Prealbumin Jgbsi-2-Vbxormcbu Iqxgd-7-Xzysoiffs Gamma Globulins PEP Interpretation Triglycerides Urine pH Urine Creatinine Urine Total Protein Vancomycin Trough Digoxin Crossmatch 11/19/19 11/19/19 11/20/19 00:54 08:03 11:31 WBC RBC Hgb Hct MCV MCH MCHC RDW Plt Count Lymph % (Auto) Saunders % (Auto) Lymph # Saunders # Seg Neutrophils % Seg Neuts % (Manual) Lymphocytes % (Manual) Seg Neutrophils # Seg Neutrophils # Man Lymphocytes # (Manual) Monocytes # (Manual) POC ABG pH ABG pH POC ABG pCO2 POC ABG pO2 ABG pO2 ABG HCO3 ABG Base Excess ABG Hemoglobin Oxyhemoglobin Sodium Potassium Chloride Carbon Dioxide BUN Creatinine Glucose POC Glucose 130 H 122 H 136 H Calcium Phosphorus Magnesium Direct Bilirubin AST Alkaline Phosphatase C-Reactive Protein Serum Total Protein Total Protein Albumin Prealbumin Mpnxj-3-Wyiumolaq Dkayj-3-Qkzgclocq Gamma Globulins PEP Interpretation Triglycerides Urine pH Urine Creatinine Urine Total Protein Vancomycin Trough Digoxin Crossmatch 11/20/19 11/20/19 11/20/19 17:17 Unknown Unknown WBC 17.8 H RBC 2.70 L Hgb 7.3 L Hct 22.5 L MCV 83 L MCH 27 L MCHC RDW 17.0 H Plt Count Lymph % (Auto) Saunders % (Auto) Lymph # Saunders # Seg Neutrophils % Seg Neuts % (Manual) Lymphocytes % (Manual) Seg Neutrophils # Seg Neutrophils # Man Lymphocytes # (Manual) Monocytes # (Manual) POC ABG pH ABG pH POC ABG pCO2 POC ABG pO2 ABG pO2 ABG HCO3 ABG Base Excess ABG Hemoglobin Oxyhemoglobin Sodium 132 L Potassium 3.5 L Chloride 95.4 L Carbon Dioxide 21 L BUN Creatinine 0.6 L Glucose 108 H POC Glucose 126 H Calcium Phosphorus Magnesium Direct Bilirubin AST Alkaline Phosphatase C-Reactive Protein Serum Total Protein Total Protein Albumin Prealbumin Qogir-0-Vpqlzgsds Urbnh-3-Ojxoslgbs Gamma Globulins PEP Interpretation Triglycerides Urine pH Urine Creatinine Urine Total Protein Vancomycin Trough Digoxin Crossmatch 11/21/19 11/21/19 11/21/19 07:40 07:40 12:29 WBC 15.1 H RBC 2.61 L Hgb 7.0 L Hct 21.5 L MCV 82 L MCH 27 L MCHC RDW 17.0 H Plt Count Lymph % (Auto) 9.0 L Saunders % (Auto) 7.7 H Lymph # Saunders # 1.2 H Seg Neutrophils % 81.5 H Seg Neuts % (Manual) Lymphocytes % (Manual) Seg Neutrophils # 12.3 H Seg Neutrophils # Man Lymphocytes # (Manual) Monocytes # (Manual) POC ABG pH ABG pH POC ABG pCO2 POC ABG pO2 ABG pO2 ABG HCO3 ABG Base Excess ABG Hemoglobin Oxyhemoglobin Sodium Potassium Chloride Carbon Dioxide BUN Creatinine 0.5 L Glucose POC Glucose 118 H Calcium Phosphorus Magnesium Direct Bilirubin AST Alkaline Phosphatase C-Reactive Protein Serum Total Protein Total Protein Albumin Prealbumin Ljxyv-1-Ogovgwqpz Wtuyn-6-Zbryazfbt Gamma Globulins PEP Interpretation Triglycerides Urine pH Urine Creatinine Urine Total Protein Vancomycin Trough Digoxin Crossmatch 11/21/19 11/22/19 11/23/19 13:32 08:13 11:48 WBC 13.7 H RBC 2.99 L Hgb 8.2 L Hct 24.7 L MCV 83 L MCH 27 L MCHC RDW 16.5 H Plt Count Lymph % (Auto) 7.8 L Saunders % (Auto) 7.5 H Lymph # 1.1 L Saunders # 1.0 H Seg Neutrophils % 83.3 H Seg Neuts % (Manual) Lymphocytes % (Manual) Seg Neutrophils # 11.4 H Seg Neutrophils # Man Lymphocytes # (Manual) Monocytes # (Manual) POC ABG pH ABG pH POC ABG pCO2 POC ABG pO2 ABG pO2 ABG HCO3 ABG Base Excess ABG Hemoglobin Oxyhemoglobin Sodium Potassium Chloride Carbon Dioxide BUN Creatinine Glucose POC Glucose 159 H Calcium Phosphorus Magnesium Direct Bilirubin AST Alkaline Phosphatase C-Reactive Protein Serum Total Protein Total Protein Albumin Prealbumin Oyfnf-6-Kmcjhxnqk Reseh-5-Bagvimofx Gamma Globulins PEP Interpretation Triglycerides Urine pH Urine Creatinine Urine Total Protein Vancomycin Trough Digoxin Crossmatch See Detail 11/23/19 11/24/19 11/24/19 16:41 17:19 17:55 WBC 12.5 H RBC 2.94 L Hgb 8.0 L Hct 24.0 L MCV 82 L MCH 27 L MCHC RDW 16.4 H Plt Count Lymph % (Auto) Saunders % (Auto) Lymph # Saunders # Seg Neutrophils % Seg Neuts % (Manual) Lymphocytes % (Manual) Seg Neutrophils # Seg Neutrophils # Man Lymphocytes # (Manual) Monocytes # (Manual) POC ABG pH ABG pH POC ABG pCO2 POC ABG pO2 ABG pO2 ABG HCO3 ABG Base Excess ABG Hemoglobin Oxyhemoglobin Sodium Potassium Chloride Carbon Dioxide BUN Creatinine Glucose POC Glucose 131 H 127 H Calcium Phosphorus Magnesium Direct Bilirubin AST Alkaline Phosphatase C-Reactive Protein Serum Total Protein Total Protein Albumin Prealbumin Sevjd-7-Pimrmkkuj Cpmgu-5-Paubiuttw Gamma Globulins PEP Interpretation Triglycerides Urine pH Urine Creatinine Urine Total Protein Vancomycin Trough Digoxin Crossmatch 11/24/19 11/25/19 11/25/19 17:55 07:23 07:23 WBC 13.6 H RBC 3.03 L Hgb 8.2 L Hct 24.6 L MCV 81 L MCH 27 L MCHC RDW 16.8 H Plt Count 441 H Lymph % (Auto) 10.3 L Saunders % (Auto) Lymph # Saunders # 0.9 H Seg Neutrophils % 81.2 H Seg Neuts % (Manual) Lymphocytes % (Manual) Seg Neutrophils # 11.1 H Seg Neutrophils # Man Lymphocytes # (Manual) Monocytes # (Manual) POC ABG pH ABG pH POC ABG pCO2 POC ABG pO2 ABG pO2 ABG HCO3 ABG Base Excess ABG Hemoglobin Oxyhemoglobin Sodium 135 L Potassium 3.3 L 3.4 L Chloride 97.3 L 95.0 L Carbon Dioxide BUN 7 L 5 L Creatinine 0.5 L 0.4 L Glucose 107 H POC Glucose Calcium Phosphorus Magnesium Direct Bilirubin AST Alkaline Phosphatase C-Reactive Protein Serum Total Protein Total Protein Albumin Prealbumin Vwajh-0-Whukbhrnw Wdges-7-Dasonspgk Gamma Globulins PEP Interpretation Triglycerides Urine pH Urine Creatinine Urine Total Protein Vancomycin Trough Digoxin Crossmatch 11/25/19 11/26/19 11/26/19 16:58 11:35 17:46 WBC RBC Hgb Hct MCV MCH MCHC RDW Plt Count Lymph % (Auto) Saunders % (Auto) Lymph # Saunders # Seg Neutrophils % Seg Neuts % (Manual) Lymphocytes % (Manual) Seg Neutrophils # Seg Neutrophils # Man Lymphocytes # (Manual) Monocytes # (Manual) POC ABG pH ABG pH POC ABG pCO2 POC ABG pO2 ABG pO2 ABG HCO3 ABG Base Excess ABG Hemoglobin Oxyhemoglobin Sodium Potassium Chloride Carbon Dioxide BUN Creatinine Glucose POC Glucose 135 H 135 H 219 H Calcium Phosphorus Magnesium Direct Bilirubin AST Alkaline Phosphatase C-Reactive Protein Serum Total Protein Total Protein Albumin Prealbumin Hdhys-5-Kenvkfwjq Jlcyq-3-Pixllhydx Gamma Globulins PEP Interpretation Triglycerides Urine pH Urine Creatinine Urine Total Protein Vancomycin Trough Digoxin Crossmatch 11/27/19 11/27/19 11/27/19 12:08 17:13 23:59 WBC RBC Hgb Hct MCV MCH MCHC RDW Plt Count Lymph % (Auto) Saunders % (Auto) Lymph # Saunders # Seg Neutrophils % Seg Neuts % (Manual) Lymphocytes % (Manual) Seg Neutrophils # Seg Neutrophils # Man Lymphocytes # (Manual) Monocytes # (Manual) POC ABG pH ABG pH POC ABG pCO2 POC ABG pO2 ABG pO2 ABG HCO3 ABG Base Excess ABG Hemoglobin Oxyhemoglobin Sodium Potassium Chloride Carbon Dioxide BUN Creatinine Glucose POC Glucose 186 H 137 H 194 H Calcium Phosphorus Magnesium Direct Bilirubin AST Alkaline Phosphatase C-Reactive Protein Serum Total Protein Total Protein Albumin Prealbumin Cuaun-5-Lhinvgpfp Wbhoc-6-Suygexcpu Gamma Globulins PEP Interpretation Triglycerides Urine pH Urine Creatinine Urine Total Protein Vancomycin Trough Digoxin Crossmatch 11/28/19 11/28/19 11/28/19 05:30 05:30 06:14 WBC 15.1 H RBC 2.97 L Hgb 8.0 L Hct 24.4 L MCV 82 L MCH 27 L MCHC RDW 17.0 H Plt Count Lymph % (Auto) 9.9 L Saunders % (Auto) Lymph # Saunders # 1.0 H Seg Neutrophils % 82.7 H Seg Neuts % (Manual) Lymphocytes % (Manual) Seg Neutrophils # 12.5 H Seg Neutrophils # Man Lymphocytes # (Manual) Monocytes # (Manual) POC ABG pH ABG pH POC ABG pCO2 POC ABG pO2 ABG pO2 ABG HCO3 ABG Base Excess ABG Hemoglobin Oxyhemoglobin Sodium 136 L Potassium 3.1 L Chloride 96.3 L Carbon Dioxide BUN 6 L Creatinine 0.5 L Glucose POC Glucose 116 H Calcium Phosphorus Magnesium 1.60 L Direct Bilirubin AST Alkaline Phosphatase C-Reactive Protein Serum Total Protein Total Protein 6.2 L Albumin 2.2 L Prealbumin Heokp-9-Jrttsbtmn Jklta-9-Qxxntkttp Gamma Globulins PEP Interpretation Triglycerides Urine pH Urine Creatinine Urine Total Protein Vancomycin Trough Digoxin Crossmatch 11/28/19 11/28/19 11/29/19 08:40 17:05 07:38 WBC RBC Hgb Hct MCV MCH MCHC RDW Plt Count Lymph % (Auto) Saunders % (Auto) Lymph # Saunders # Seg Neutrophils % Seg Neuts % (Manual) Lymphocytes % (Manual) Seg Neutrophils # Seg Neutrophils # Man Lymphocytes # (Manual) Monocytes # (Manual) POC ABG pH ABG pH POC ABG pCO2 POC ABG pO2 ABG pO2 ABG HCO3 ABG Base Excess ABG Hemoglobin Oxyhemoglobin Sodium Potassium Chloride Carbon Dioxide BUN Creatinine Glucose POC Glucose 227 H 108 H 118 H Calcium Phosphorus Magnesium Direct Bilirubin AST Alkaline Phosphatase C-Reactive Protein Serum Total Protein Total Protein Albumin Prealbumin Agcrh-6-Vypirlgeq Ypegc-8-Sqyxnlluu Gamma Globulins PEP Interpretation Triglycerides Urine pH Urine Creatinine Urine Total Protein Vancomycin Trough Digoxin Crossmatch 11/29/19 11/30/19 11/30/19 12:00 07:08 07:08 WBC 14.9 H RBC 3.11 L Hgb 8.4 L Hct 25.1 L MCV 81 L MCH 27 L MCHC RDW 17.3 H Plt Count 460 H Lymph % (Auto) 9.3 L Saunders % (Auto) Lymph # Saunders # 1.0 H Seg Neutrophils % 83.3 H Seg Neuts % (Manual) Lymphocytes % (Manual) Seg Neutrophils # 12.4 H Seg Neutrophils # Man Lymphocytes # (Manual) Monocytes # (Manual) POC ABG pH ABG pH POC ABG pCO2 POC ABG pO2 ABG pO2 ABG HCO3 ABG Base Excess ABG Hemoglobin Oxyhemoglobin Sodium 136 L Potassium 3.5 L Chloride 95.5 L Carbon Dioxide BUN 7 L Creatinine 0.5 L Glucose 74 L POC Glucose 193 H Calcium Phosphorus Magnesium Direct Bilirubin AST Alkaline Phosphatase 138 H C-Reactive Protein Serum Total Protein Total Protein Albumin 2.2 L Prealbumin Papuc-1-Olcwobuca Biuwg-4-Riaieaucy Gamma Globulins PEP Interpretation Triglycerides Urine pH Urine Creatinine Urine Total Protein Vancomycin Trough Digoxin Crossmatch 12/01/19 12/01/19 12/01/19 05:53 05:53 12:35 WBC 11.6 H RBC 3.05 L Hgb 8.1 L Hct 24.8 L MCV 81 L MCH 27 L MCHC RDW 16.9 H Plt Count Lymph % (Auto) 12.4 L Saunders % (Auto) 8.6 H Lymph # Saunders # 1.0 H Seg Neutrophils % 78.5 H Seg Neuts % (Manual) Lymphocytes % (Manual) Seg Neutrophils # 9.1 H Seg Neutrophils # Man Lymphocytes # (Manual) Monocytes # (Manual) POC ABG pH ABG pH POC ABG pCO2 POC ABG pO2 ABG pO2 ABG HCO3 ABG Base Excess ABG Hemoglobin Oxyhemoglobin Sodium 135 L Potassium 3.4 L Chloride 97.3 L Carbon Dioxide BUN 7 L Creatinine 0.5 L Glucose POC Glucose 113 H Calcium Phosphorus Magnesium Direct Bilirubin AST Alkaline Phosphatase C-Reactive Protein Serum Total Protein Total Protein Albumin Prealbumin Bzgvw-2-Pndcwmnei Nnemo-0-Vucewzngg Gamma Globulins PEP Interpretation Triglycerides Urine pH Urine Creatinine Urine Total Protein Vancomycin Trough Digoxin Crossmatch 12/02/19 12/02/19 12/03/19 11:56 16:50 13:27 WBC RBC Hgb Hct MCV MCH MCHC RDW Plt Count Lymph % (Auto) Saunders % (Auto) Lymph # Saunders # Seg Neutrophils % Seg Neuts % (Manual) Lymphocytes % (Manual) Seg Neutrophils # Seg Neutrophils # Man Lymphocytes # (Manual) Monocytes # (Manual) POC ABG pH ABG pH POC ABG pCO2 POC ABG pO2 ABG pO2 ABG HCO3 ABG Base Excess ABG Hemoglobin Oxyhemoglobin Sodium Potassium Chloride Carbon Dioxide BUN Creatinine Glucose POC Glucose 120 H 113 H 158 H Calcium Phosphorus Magnesium Direct Bilirubin AST Alkaline Phosphatase C-Reactive Protein Serum Total Protein Total Protein Albumin Prealbumin [id number] [id number] Gamma Globulins PEP Interpretation Triglycerides Urine pH Urine Creatinine Urine Total Protein Vancomycin Trough Digoxin Crossmatch 12/03/19 12/04/19 12/04/19 18:22 00:56 11:36 WBC RBC Hgb Hct MCV MCH MCHC RDW Plt Count Lymph % (Auto) Saunders % (Auto) Lymph # Saunders # Seg Neutrophils % Seg Neuts % (Manual) Lymphocytes % (Manual) Seg Neutrophils # Seg Neutrophils # Man Lymphocytes # (Manual) Monocytes # (Manual) POC ABG pH ABG pH POC ABG pCO2 POC ABG pO2 ABG pO2 ABG HCO3 ABG Base Excess ABG Hemoglobin Oxyhemoglobin Sodium Potassium Chloride Carbon Dioxide BUN Creatinine Glucose POC Glucose 112 H 61 L 181 H Calcium Phosphorus Magnesium Direct Bilirubin AST Alkaline Phosphatase C-Reactive Protein Serum Total Protein Total Protein Albumin Prealbumin Hddzg-0-Wxwoimmjl Pfxev-2-Hblhxekty Gamma Globulins PEP Interpretation Triglycerides Urine pH Urine Creatinine Urine Total Protein Vancomycin Trough Digoxin Crossmatch 12/04/19 12/04/19 12/04/19 12:20 12:20 16:26 WBC 11.9 H RBC 2.68 L Hgb 7.1 L Hct 21.9 L MCV 82 L MCH 27 L MCHC RDW 17.8 H Plt Count Lymph % (Auto) Saunders % (Auto) Lymph # Saunders # Seg Neutrophils % Seg Neuts % (Manual) Lymphocytes % (Manual) Seg Neutrophils # Seg Neutrophils # Man Lymphocytes # (Manual) Monocytes # (Manual) POC ABG pH ABG pH POC ABG pCO2 POC ABG pO2 ABG pO2 ABG HCO3 ABG Base Excess ABG Hemoglobin Oxyhemoglobin Sodium 132 L Potassium Chloride 95.6 L Carbon Dioxide BUN 8 L Creatinine 0.6 L Glucose 124 H POC Glucose 130 H Calcium Phosphorus Magnesium Direct Bilirubin AST Alkaline Phosphatase C-Reactive Protein Serum Total Protein Total Protein Albumin Prealbumin Nccfj-4-Rabytuvaz Eiyzi-2-Ztjnvpsoh Gamma Globulins PEP Interpretation Triglycerides Urine pH Urine Creatinine Urine Total Protein Vancomycin Trough Digoxin Crossmatch 12/05/19 10:08 WBC 11.7 H RBC 2.73 L Hgb 7.2 L Hct 22.2 L MCV 82 L MCH 27 L MCHC RDW 17.5 H Plt Count 442 H Lymph % (Auto) Saunders % (Auto) Lymph # Saunders # Seg Neutrophils % Seg Neuts % (Manual) Lymphocytes % (Manual) Seg Neutrophils # Seg Neutrophils # Man Lymphocytes # (Manual) Monocytes # (Manual) POC ABG pH ABG pH POC ABG pCO2 POC ABG pO2 ABG pO2 ABG HCO3 ABG Base Excess ABG Hemoglobin Oxyhemoglobin Sodium Potassium Chloride Carbon Dioxide BUN Creatinine Glucose POC Glucose Calcium Phosphorus Magnesium Direct Bilirubin AST Alkaline Phosphatase C-Reactive Protein Serum Total Protein Total Protein Albumin Prealbumin Rvsxc-5-Mhdlmahqi Lgbpv-0-Hjsmffssf Gamma Globulins PEP Interpretation Triglycerides Urine pH Urine Creatinine Urine Total Protein Vancomycin Trough Digoxin Crossmatch Chest x-ray: report reviewed, image reviewed
[2019-12-05] MEDS ORDERED: cefTRIAXone/NS 1 GM/50 ML 1 GM/50 ML BAG IV SCH (16:00)
--- NOTE | 2019-12-05 16:09 | Discharge Summary ---
Providers - Providers Date of Admission: 10/05/19 13:37 Date of discharge: 12/05/19 Attending physician: KIM WILLIAMSON 10/05/19 16:06 Consult to Wound/ET Nurse [CONS] Routine Reason For Exam: wound vac mgmt 10/05/19 16:31 Consult to Case Management [CONS] Routine Services Needed at Discharge: Wound Vac Notified:: cm notified 10/05/19 21:22 Consult to Physician [CONS] Routine Comment: Consulting Provider: ANKITA GAO Physician Instructions: Reason For Exam: postop 10/07/19 12:49 Consult to Dietitian/Nutrition [CONS] Routine Physician Instructions: Reason For Exam: Reason for Consult: Malnutrition Physical Therapy Evaluation and Treat [CONS] Routine Comment: Reason For Exam: multiple surgeries, deconditioning 10/08/19 07:50 Consult to Case Management [CONS] Routine Services Needed at Discharge: Home Health Services Notified:: cm notified Comment:: For Wound Vac Care. 10/09/19 17:06 Consult to Physician [CONS] Routine Comment: Consulting Provider: JOSELYN BURKS Physician Instructions: Reason For Exam: coped exacerbation, pulmonary consolidation 10/09/19 17:51 Consult to Physician [CONS] Routine Comment: Consulting Provider: LIZ KENDALL Physician Instructions: Reason For Exam: presumed free air 10/10/19 09:38 Consult to Physician [CONS] Routine Comment: Consulting Provider: EDISON MEZA Physician Instructions: Reason For Exam: guillermo 10/10/19 12:11 Consult to Physician [CONS] Routine Comment: Consulting Provider: VIDAL NUNN Physician Instructions: Reason For Exam: SEPSIS 10/10/19 12:12 PICC Line Placement [Consult to PICC Line RN] [CONS] Routine Reason For Exam: DIFFICULT ACCESS Type Line:: Midline 10/11/19 13:09 PICC Line Insertion [Consult to PICC Line RN] [CONS] Urgent Reason For Exam: Change out midline catheter to PICC - double lumen Type Line:: PICC 10/14/19 09:04 Consult to Dietitian/Nutrition [CONS] Routine Physician Instructions: Reason For Exam: Reason for Consult: Write/Manage TPN/PPN 10/29/19 11:24 Speech Therapy Evaluation and Treat [CONS] Routine Reason For Exam: Prolonged intubation, swallow evaluation 11/04/19 09:12 Speech Therapy Evaluation and Treat [CONS] Urgent Reason For Exam: self extubation 11/07/19 16:29 Consult to Wound/ET Nurse [CONS] Routine Reason For Exam: wound eval, sacrum 11/09/19 12:12 Consult to Physician [CONS] Routine Comment: Consulting Provider: LIZ HDZ Physician Instructions: believe ok to remove L chest tube Reason For Exam: chest tube removal 11/09/19 12:14 Speech Therapy Evaluation and Treat [CONS] Routine Reason For Exam: Swallow evaluation 11/12/19 12:30 Physical Therapy Evaluation and Treat [CONS] Routine Comment: Reason For Exam: Debility 11/12/19 12:33 Occupational Therapy Evaluate and Treat [CONS] Routine Comment: Reason For Exam: Debility 11/28/19 14:13 Physical Therapy Evaluation and Treat [CONS] Routine Comment: maybe off drain suction for length of PTOT session Reason For Exam: generalized weakness 11/30/19 08:02 Consult to Wound/ET Nurse [CONS] Routine Reason For Exam: New wound at sacral area Primary care physician: KEG RAISER Hospitalization Condition: Stable Hospital course: 54 yo male with hx of CAD, MA, emphysema, COPD who presented with prolonged complicated course as a result of a bowel perforation. On admission, it was reported that a portion of his intestines protruded through his wound after severe cough. He has had multiple surgeries since admission. Discharge diagnosis and mx: /Dehiscence of closure of fascia s/p ex lap with closure of abdominal wall and wound vac placement 10/05 ; s/p Re-exploration, washout, transection of colon, Abthera placement -10/13; s/p abd washout, partial omentectomy, partial colectomy with colostomy - 10/16. s/p abd washout, feeding tube placement, AbThera placement - 10/19; Abdominal washout and closure - 10/22. /-Sacral infected Pressure Wound -wound care, frequent changing positions. s/p surgical debridement x 2 by surgery wound Cx grew GNR - started on abx, treat for a week /-Left flank pain; resolved CT abdomen and pelvis reviewed --Sepsis, improved. Completed Abx per ID. /-Acute Respiratory failure with hypoxia required intubation for surgery on 10/13/19, Extubated 10/25/19, Re-intubated 10/30 self extubated 11/04, now on Oxygen /-Left pneumothorax s/p chest tube placed 10/30 Resolved. /-Left lower lobe pneumonia: Completed treatment CTA chest showed left lower lobe consolidation with pleural effusion /-COPD: Continue current management /-GUILLERMO on CKD/ ATN due to sepsis/resolved /-Acute blood loss anemia: s/p PRBCs. H&H currently stable. /Acute Toxic Metabolic Encephalopathy/Delirium Tremens. Resolved. /-SVT, Atrial fib/flutter with RVR:rate controlled On oral amiodarone, metoprolol s/p adenosine, amiodarone and cardizem drip /-Hx of Hypertension :Stable cont antihypertensives /-Hyperlipidemia: Stable /-Hx of MA/CAD with PCI of the circumflex and second vessel POBA of the distal LAD occlusion on 2018. Left ventricle ejection fraction of 45-50%. /-Moderate Protein calorie malnutrition: Rug Clipper following /-Tobacco abuse:Cessation recommended /-Morbid obesity with BMI of 43.4 now 32.0 weight reduction when stable --DVT and GI ppx: Lovenox/PPI --Disposition: acute rehabilitation placement Physical exam General appearance: Present: no acute distress, obese - EENT Eyes: Present: PERRL, EOM intact - Neck Neck: Present: supple, normal ROM - Respiratory Respiratory effort: normal Respiratory: bilateral: diminished, negative: rales, rhonchi, wheezing - Cardiovascular Rhythm: regular Heart Sounds: Present: S1 & S2 - Extremities Extremities: no ischemia, No edema - Abdominal General gastrointestinal: soft, non-tender, non-distended, other (Ostomy functioning, midline drain, G-tube in place) - Integumentary Integumentary: Present: clear, warm - Psychiatric Psychiatric: (anxious) - Neurologic Neurologic: other (Residual weakness) Disposition: [id number] Time spent for discharge: 34 minutes Core Measure Documentation - Palliative Care Palliative Care/ Comfort Measures: Not Applicable - Core Measures Any of the following diagnoses?: history only Exam - Constitutional Vitals: Temp Pulse Resp BP Pulse Ox 98.0 F 83 20 127/63 95 12/05/19 12:00 12/05/19 14:16 12/05/19 13:21 12/05/19 14:16 12/05/19 12:00 Plan Activity: up only with assistance, fall precautions Diet: low fat, low salt Additional Instructions: rocephin 1gm iv BID for a week Follow up with: PRIMARY CARE, [Primary Care Provider] - 7 Days
[2019-12-05] MEDS: ENOXAPARIN 40 MG/0.4 ML INJ SUB-Q SCH (21:46)
[2019-12-05 22:33] VITALS: BP 118/50
[2019-12-06] MEDS: IPRATROPIUM/ALBUTEROL SULFATE 3 ML AMPUL.NEB IH SCH (14:48)
== END 2019-12-05 23:05 | DRG 853 ==
LOC: ED 10:57 → 3A 13:37 → 3B-SURG 16:58 → IMCU 10-13 08:40 → CC1 10-13 17:25 → IMCU 11-11 23:49 → 4A 11-14 22:12 → 3A 12-01 13:55
PROVIDERS: ADMIT Internal Medicine; ATTEND Internal Medicine
PROC: 0WQFXZZ Repair Abdominal Wall, External Approach (ICD-10-PCS; 2019-10-05)
PROC: 0W9F30Z Drainage of Abdominal Wall with Drainage Device, Percutaneous Approach (ICD-10-PCS; 2019-10-10)
PROC: 0W9F30Z Drainage of Abdominal Wall with Drainage Device, Percutaneous Approach (ICD-10-PCS; 2019-10-10)
PROC: 05HY33Z Insertion of Infusion Device into Upper Vein, Percutaneous Approach (ICD-10-PCS; 2019-10-10)
PROC: 05HY33Z Insertion of Infusion Device into Upper Vein, Percutaneous Approach (ICD-10-PCS; 2019-10-11)
PROC: 05PYX3Z Removal of Infusion Device from Upper Vein, External Approach (ICD-10-PCS; 2019-10-12)
PROC: 02H633Z Insertion of Infusion Device into Right Atrium, Percutaneous Approach (ICD-10-PCS; 2019-10-12)
PROC: 5A09357 Assistance with Respiratory Ventilation, Less than 24 Consecutive Hours, Continuous Positive Airway Pressure (ICD-10-PCS; 2019-10-12)
PROC: 5A1955Z Respiratory Ventilation, Greater than 96 Consecutive Hours (ICD-10-PCS; 2019-10-13)
PROC: 0BH18EZ Insertion of Endotracheal Airway into Trachea, Via Natural or Artificial Opening Endoscopic (ICD-10-PCS; 2019-10-13)
PROC: 0DQE0ZZ Repair Large Intestine, Open Approach (ICD-10-PCS; 2019-10-13)
PROC: 4A033R1 Measurement of Arterial Saturation, Peripheral, Percutaneous Approach (ICD-10-PCS; 2019-10-13)
PROC: 5A09357 Assistance with Respiratory Ventilation, Less than 24 Consecutive Hours, Continuous Positive Airway Pressure (ICD-10-PCS; 2019-10-13)
PROC: 0DBU0ZZ Excision of Omentum, Open Approach (ICD-10-PCS; 2019-10-16)
PROC: 0DBE0ZZ Excision of Large Intestine, Open Approach (ICD-10-PCS; 2019-10-16)
PROC: 0D1E0Z4 Bypass Large Intestine to Cutaneous, Open Approach (ICD-10-PCS; 2019-10-16)
PROC: 30233N1 Transfusion of Nonautologous Red Blood Cells into Peripheral Vein, Percutaneous Approach (ICD-10-PCS; 2019-10-16)
PROC: 0D9630Z Drainage of Stomach with Drainage Device, Percutaneous Approach (ICD-10-PCS; 2019-10-19)
PROC: 0W9F3ZZ Drainage of Abdominal Wall, Percutaneous Approach (ICD-10-PCS; 2019-10-22)
PROC: 5A1955Z Respiratory Ventilation, Greater than 96 Consecutive Hours (ICD-10-PCS; 2019-10-30)
PROC: 0BH18EZ Insertion of Endotracheal Airway into Trachea, Via Natural or Artificial Opening Endoscopic (ICD-10-PCS; 2019-10-30)
PROC: 0W9F30Z Drainage of Abdominal Wall with Drainage Device, Percutaneous Approach (ICD-10-PCS; 2019-10-30)
PROC: 0W9B30Z Drainage of Left Pleural Cavity with Drainage Device, Percutaneous Approach (ICD-10-PCS; 2019-10-30)
PROC: 0WPBX0Z Removal of Drainage Device from Left Pleural Cavity, External Approach (ICD-10-PCS; 2019-11-12)
PROC: 0JB70ZZ Excision of Back Subcutaneous Tissue and Fascia, Open Approach (ICD-10-PCS; principal; 2019-12-04)
DX: A41.9 Sepsis, unspecified organism (principal); J18.9 Pneumonia, unspecified organism; J96.20 Acute and chronic respiratory failure, unspecified whether with hypoxia or hypercapnia; N17.0 Acute kidney failure with tubular necrosis; G92 Toxic encephalopathy; T81.32XA Disruption of internal operation (surgical) wound, not elsewhere classified, initial encounter; T85.628A Displacement of other specified internal prosthetic devices, implants and grafts, initial encounter; J93.9 Pneumothorax, unspecified; D62 Acute posthemorrhagic anemia; I48.92 Unspecified atrial flutter; E46 Unspecified protein-calorie malnutrition; T85.9XXA Unspecified complication of internal prosthetic device, implant and graft, initial encounter; Y83.8 Other surgical procedures as the cause of abnormal reaction of the patient, or of later complication, without mention of misadventure at the time of the procedure; R00.0 Tachycardia, unspecified; D72.829 Elevated white blood cell count, unspecified; I25.10 Atherosclerotic heart disease of native coronary artery without angina pectoris; J43.9 Emphysema, unspecified; I10 Essential (primary) hypertension; K21.9 Gastro-esophageal reflux disease without esophagitis; E78.2 Mixed hyperlipidemia; F10.10 Alcohol abuse, uncomplicated; F17.200 Nicotine dependence, unspecified, uncomplicated; I48.91 Unspecified atrial fibrillation; E78.5 Hyperlipidemia, unspecified; E66.01 Morbid (severe) obesity due to excess calories; Z88.2 Allergy status to sulfonamides; Y92.89 Other specified places as the place of occurrence of the external cause; I25.2 Old myocardial infarction; Z88.0 Allergy status to penicillin; Z95.5 Presence of coronary angioplasty implant and graft; Z79.899 Other long term (current) drug therapy; Z68.30 Body mass index [BMI] 30.0-30.9, adult; Z99.81 Dependence on supplemental oxygen; Z71.3 Dietary counseling and surveillance
CPT/HCPCS: 10160; 32551; 36415; 36584; 36600; 70450; 71045; 71046; 71250; 71260; 74018; 74176; 74177; 74178; 76770; 77012; 80048; 80053; 80076; 80162; 80202; 81001; 82140; 82330; 82570; 82803; 82947; 82962; 83036; 83735; 84100; 84134; 84156; 84165; 84166; 84300; 84478; 84484; 85007; 85025; 85027; 86140; 86850; 86900; 86901; 86920; 87040; 87070; 87075; 87076; 87086; 87103; 87116; 87186; 87205; 88305; 88307; 89050; 93005; 93010; 94002; 94003; 94640; 94644; 94660; 94667; 94760; G0378; A4217; A4421; A6260; C1751; C1769; C9113; J0153; J0171; J0282; J0330; J0360; J0690; J0692; J0696; J1160; J1170; J1450; J1630; J1644; J1650; J1815; J1885; J1940; J2060; J2185; J2248; J2250; J2370; J2405; J2543; J2704; J2710; J2997; J3010; J3370; J3411; J3475; J3480; J7030; J7040; J7050; J7060; J7070; J7120; P9016; P9045; P9047; Q9967

== ENCOUNTER 2019-12-05 17:10 | Inpatient (IN) | payer BC ==
[2019-12-05] MEDS ORDERED: ACETAMINOPHEN 325 MG TAB PO PRN (17:59)
[2019-12-05] MEDS ORDERED: POLYETHYLENE GLYCOL 3350 17 GM POWDER PO PRN (17:59)
[2019-12-05] MEDS ORDERED: ONDANSETRON 4 MG ODT TAB PO PRN (17:59)
[2019-12-05] MEDS ORDERED: HYPROMELLOSE 0.5% OPHTH SOLN 15 ML OU PRN (18:00)
[2019-12-05] MEDS ORDERED: SODIUM HYPOCHLORITE, DAKIN'S 1/2 STRENGTH (0.25%) 473 ML TOPICAL SOLN TP PRN (18:00)
--- NOTE | 2019-12-05 18:19 | History and Physical Report ---
History of Present Illness Date: 12/05/19 Date of admission: 12/05/19 Chief Complaint: Debility status post perforated bowel History of present illness: 54-year-old male who Developed increasing pain after colonoscopy and upon work- up was found to have a perforated bowel. He underwent surgical repair however also had dehiscence of the wound and has required several washouts. His course is complicated and he has been in the hospital since September. He developed a cute respiratory failure and required intubation. He developed pneumonia and pleural effusion which has been treated and resolved. He now has an unstageable pressure wound on his sacrum which has been debrided and he is being treated with antibiotics for an infection (wound culture pending). He is debilitated and has a complex medical course which neccesitates his admission to IRU vs SNF. He will likely need ongoing debridement of the sacral wound and will need further management of the abdominal wound drain. After the patient was medically stabilized they were transferred for further re habilitation. All available medical records have been reviewed. Plan of care was discussed with patient and family. Past History Past Medical History: acute NV (2 yrs ago), CAD, COPD, hypertension, other (sleep apnea) Past Surgical History: PTCA Social history: , smoking, full code. denies: alcohol abuse (Drinks alcohol but denies abuse) Family history: no significant family history Medications and Allergies Allergies Allergy/AdvReac Type Severity Reaction Status Date / Time Sulfa (Sulfonamide Allergy Severe Rash Verified 03/22/16 18:34 Antibiotics) oxytetracycline Allergy Unknown Verified 03/22/16 10:32 [From Terramycin] oxytetracycline HCl Allergy Unknown Verified 03/22/16 10:32 [From Terramycin] Home Medications Medication Instructions Recorded Confirmed Last Taken Type Ipratropium/Albuterol Sulfate 1 ampul IH Q6HRT #30 ampul.neb 08/17/18 10/06/19 10/05/19 21:00 Rx [DUONEB *Not for PRN Use*] Symbicort 160-4.5 Mcg Inhaler 1 puff INHALATION BID #30 08/17/18 10/06/19 09/05/19 23:00 Rx Pantoprazole [Protonix TAB] 40 mg PO BID #60 tablet 10/03/19 10/06/19 10/04/19 21:00 Rx Amiodarone [Cordarone 200 MG TAB] 200 mg PO QDAY tablet 12/05/19 Unknown Rx Arformoterol Nebu [Brovana Nebu] 15 mcg IH Q12HRT ml 12/05/19 Unknown Rx Budesonide [Pulmicort Respules] 0.5 mg IH Q12HRT nebu 12/05/19 Unknown Rx Citalopram [Celexa] 20 mg PO DAILY tablet 12/05/19 Unknown Rx Enoxaparin 40 mg SUB-Q QDAY@2200 syringe 12/05/19 Unknown Rx HYDROcodone/APAP 10-325 [[place] 1 each PO Q6H PRN tablet 12/05/19 Unknown Rx 10-325 mg TAB] Metoprolol [Lopressor TAB] 12.5 mg PO Q8HR tablet 12/05/19 Unknown Rx Active Meds: Active Medications Acetaminophen (Tylenol) 650 mg PO Q6H PRN PRN Reason: Non Cardiac Pain or Temp>100.5 Acetaminophen/Hydrocodone Bitart ([place] 10/325) 1 each PO Q4H PRN PRN Reason: Pain, Moderate (4-6) Albuterol/Ipratropium (Duoneb *Not For Prn Use*) 1 ampul IH TIDRT [facility] Amiodarone HCl (Cordarone) 200 mg PO DAILY [facility] Arformoterol Tartrate (Brovana Nebu) 15 mcg IH Q12HRT [facility] Artificial Tears (Isopto Tears 0.5%) 2 drops OU Q4H PRN PRN Reason: Dry Eye(s) Bisacodyl (Dulcolax) 10 mg HI QDAY PRN PRN Reason: Constipation Budesonide (Pulmicort) 0.5 mg IH Q12HRT [facility] Citalopram Hydrobromide (Celexa) 20 mg PO QDAY [facility] Enoxaparin Sodium (Enoxaparin) 40 mg SUB-Q QDAY VERÓNICA Ceftriaxone Sodium (Rocephin/Ns 1 Gm/50 Ml) 1 gm in 50 mls @ 100 mls/hr IV Q12HR@0600,1800 [facility]; Protocol Metoprolol Tartrate (Metoprolol) 12.5 mg PO Q8HR [facility] Ondansetron HCl (Zofran Odt) 4 mg PO Q8H PRN PRN Reason: Nausea And Vomiting Pantoprazole Sodium (Protonix) 40 mg PO QDAY VERÓNICA Polyethylene Glycol (Miralax 3350) 17 gm PO QDAY PRN PRN Reason: Constipation Sodium Hypochlorite (Dakin's Half Strength) 1 applic TP Q12H PRN PRN Reason: Wound Care Review of Systems Constitutional: weight loss Ears, nose, mouth and throat: no decreased hearing Cardiovascular: high blood pressure, decreased exercise tolerance, no chest pain Respiratory: no cough Gastrointestinal: no nausea, no vomiting Musculoskeletal: low back pain Integumentary: wounds, no rash Neurological: tremors Psychiatric: change in sleep habits Exam - Exam Narrative exam: MUSCULOSKELETAL SPECIALTY EXAM CONSTITUTIONAL: Well developed, well nourished, appropriately groomed, obese, Ill-appearing LYMPHATIC: No appreciable abnormalities palpable in neck EENT: Visual olson full to confrontation. EOMI. Oropharynx clear. Hearing intact to soft voice RESPIRATORY: Clear to auscultation bilaterally, no increased work of breathing CARDIOVASCULAR: Regular Rate/ Rhythm, no swelling, edema or tenderness in BUE or BLE. Pulses palpable in all extremities. All extremities warm. GI: + bowel sounds, soft, NTTP, nondistended. INTEGUMENTARY: Colostomy on the left abdomen, midline abdominal drain, sacral wound in the gluteal cleft, otherwise, Normal, no rash, masses or bruising noted in extremities. MUSCULOSKELETAL: BUE and BLE normal without defect, crepitus, subluxation, effusion, arthritic changes or TTP. BUE 4/5, good ROM, with normal tone. BLE 4/5 good ROM, with normal tone NEURO: CN 2-12 grossly intact. Sensation intact in all extremities. Reflexes 2+ bilaterally at biceps, brachioradialis and patella. No clonus at ankles. Coordination intact in BUE. tremor noted in 4 extremities. POSTURE and GAIT: Sitting posture good. Balance appears reasonable. Gait deferred until seen with therapy. PSYCH: Alert, oriented x2,Confused on time but patient has been in the hospital since September and has recently had IV pain medication, affect appears normal. Insight appears intact. Assessment and Plan Assessment and plan: Patient was assessed and evaluated for Acute Inpatient Rehab Unit. Due to the patients above-mentioned medical complexity, along with decreased functional mobility and self care, this patient continues to require and be appropriate for a comprehensive, multidisciplinary [id number] rehabilitation program. These needs cannot be met in an outpatient or other less intensive setting. The patient would continue to benefit from skilled therapy intervention for at least 3 hours per day, five days a week, with techniques specific to the needs of the patient to improve function, activities of daily living, and reintegration into the community. The patient continues to require: -- OT to improve ROM, self-care, and learn use of adaptive equipment -- PT to improve strength and balance, functional transfers, and ambulation with energy conservation techniques to improve functional mobility -- 24 hour RN to ensure and prevent skin breakdown, promote progressive independence while ensuring safety, ensure education regarding medications, and incorporation of the rehabilitation at the bedside -- 24 hour Catering Director to coordinate this interdisciplinary program, and to manage/prevent complications as a result of the patients medical comorbidities. -Plan of care by day 4 -Weekly team conferences With such a program, there is a reasonable certainty that the goals individualized for this patient can be achieved within the specified length of stay. Dehiscence of abdominal wound: Continue wound care with drain to intermittent suction. Will discuss with surgery ongoing treatment and eventual continuation of drain at their discretion. Monitor for any increased or decrease in amount of drainage or changes in quality of drainage. Monitor for any further signs of possible wound infection. If the patient does develop further complications due to his complicated course he may need to be transferred back to the acute side of the hospital. Unstageable sacral wound: Continue wound care. Patient is on Rocephin for empiric therapy due to foul odor and preliminary growth of bacteria. Final culture pending. Patient recently underwent debridement. We will continue to monitor and dress per wound care recommendations, may need further debridement going forward and will defer to surgeon for this as well. COPD:Continue medications. Supplemental O2 as needed. Monitor for signs/symptoms of exacerbation. Hypertension:Continue medication. Monitor blood pressure. Adjust medications as needed for normotension. Hold for hypotension. Hyperlipidemia: Not on medication currently.Lipid panel was checked in October. Will discuss with patient and see what medication he was previously taking and restarted. CAD/NV:Left Ventricle ejection fraction 45 to 50%. Protein calorie malnutrition: Patient is eating by mouth currently. PEG tube is not being used. Will monitor his nutritional status and continue any protein supplements as needed. States that his diet is actually pretty strong currently. Obesity:Patient has lost a significant amount of weight during his roughly 3- month stay in the hospital. We will continue to monitor his weight as well as nutritional status. With his current weight loss he should be able to maintain a healthier weight going forward but will need to rebuild his protein status and strength/loss musculature. ADL dysfunction: OT will work on improving ability to perform ADLs (including assistive devices) to increase independence and decrease caregiver burden and im prove functional transfers and mobility training. Difficulty walking: PT will work on gait training and proper use of assistive devices and advance as appropriate to use of stairs and outside ambulation on uneven surfaces. Unsteadiness on feet: PT will work on improving static and dynamic sitting and standing balance as well as proper use of assistive devices to decrease risk of falls. Abnormality of gait: PT will work to improve safety and efficiency of gait through neuromotor training and gait training along with instruction on proper use of assistive devices. Muscle weakness: PT & OT will work on strengthening exercises to improve functional strength including mixture of closed and open kinetic chain exercises. Debility: PT & OT will work on improving overall functional status to improve participation with ADLs, mobility and social involvement. Fatigue: PT & OT will work on improving endurance through aerobic exercises and therapeutic activity while monitoring patients tolerance for activity and vital signs as needed. Tobacco abuse: Patient has been without cigarettes since admission in September. Will not need Nicotine patch. Will provide typical tobacco cessation discussion tomorrow and throughout his stay in rehab to reinforce his ability to continue off tobacco. DVT ppx:Lovenox Pain: Continue physical modalities in therapy and pain medications as needed to achieve functional pain control. Sleep: Monitor and address as needed. Bowel: Monitor and address as needed. Appetite: Monitor and address as needed. Discharge planning: Pending therapy progress and care plan meeting. Will continue discussion with therapy team, SW, patient and family. Restrictions/ Precautions: Falls WB status: FWB Functional Hx: ADLs: Independent Cognition: Independent Mobility: No AD Barriers to Discharge: Decreased mobility and ability to perform self care, balance deficits, weakness Estimated Length of Stay: 1821 days Discharge Destination: Home with family POST ADMISSION PHYSICIAN EVALUATION I have examined the patient and find that functional status, medical condition and appropriateness for IRF admission are essentially unchanged from those described in the preadmission screening. Will monitor for worsening Worsening wounds including an unstageable sacral wound as well as midline abdominal wound which still has an active drain, Infection, DVT/PE, bowel and bladder complications, Ostomy and complications due to COPD, hypertension, malnutrition, CAD and electrolyte abnormalities. Will attempt to avoid occurrence of these issues or treat them if they present themselves.
[2019-12-06] MEDS: HYDROcodone/ACETAMINOPHEN 10-325MG TAB PO PRN ×2 (01:12→10:36)
[2019-12-06] MEDS: cefTRIAXone/NS 1 GM/50 ML 1 GM/50 ML BAG IV SCH ×2 (06:09→18:23)
[2019-12-06] MEDS: METOPROLOL TARTRATE 25 MG TAB PO SCH ×3 (06:10→21:13)
[2019-12-06 08:19] LABS: Basophils # (Auto) 0.1 K/mm3 (0.0-0.1); Basophils % (Auto) 0.5 % (0.0-1.8); Eosinophils # (Auto) 0.1 K/mm3 (0.0-0.4); Eosinophils % (Auto) 0.5 % (0.0-4.3); Hemoglobin 7.5 gm/dl (11.8-15.2); Lymphocytes # (Auto) 1.1 K/mm3 (1.2-5.4); Lymphocytes % (Auto) 10.3 % (13.4-35.0); Monocytes # (Auto) 0.9 K/mm3 (0.0-0.8); Monocytes % (Auto) 8.5 % (0.0-7.3)
[2019-12-06 08:30] LABS: Hematocrit 22.8 % (35.5-45.6); Mean Corpuscular HGB Conc 33 % (32-34); Mean Corpuscular Volume 81 fl (84-94); Platelet Count 472 K/mm3 (140-440); Red Blood Count 2.81 M/mm3 (3.65-5.03); Red Cell Distribution Width 17.9 % (13.2-15.2)
[2019-12-06] MEDS: PANTOPRAZOLE 40 MG TAB PO SCH (08:45)
[2019-12-06] MEDS: CITALOPRAM 20 MG TAB PO SCH (08:45)
[2019-12-06 08:48] LABS: Alanine Aminotransferase 6 units/L (7-56); Albumin 2.1 g/dL (3.9-5); BUN/Creatinine Ratio 12; Blood Urea Nitrogen 6 mg/dL (9-20); Calcium 8.4 mg/dL (8.4-10.2); Hemolysis Index 1
--- NOTE | 2019-12-06 11:38 | Progress Note ---
Subjective Date of service: 12/06/19 Principal diagnosis: Debility status post perforated bowel Interval history: 54-year-old male who Developed increasing pain after colonoscopy and upon work- up was found to have a perforated bowel. He underwent surgical repair however also had dehiscence of the wound and has required several washouts. His course is complicated and he has been in the hospital since September. He developed acute respiratory failure and required intubation. He developed pneumonia and pleural effusion which has been treated and resolved. He now has an unstageable pressure wound on his sacrum which has been debrided and he is being treated with antibiotics for an infection (wound culture pending). He is debilitated and has a complex medical course which neccesitates his admission to IRU vs SNF. He will likely need ongoing debridement of the sacral wound and will need further management of the abdominal wound drain. Patient is participating in therapy and making reasonable progress. Taking rest breaks as needed. +BM. Denies pain, palpitations, dyspnea, cough, N/V, weakness, or joint pain. Abdominal wound: Continue drain per wound care. Further surgical care as needed. Adhesion of drain system slightly problematic, we'll monitor. Continue Unstageable sacral wound: Klebsiella cultured. Susceptible to rocephin (CARMELLA 8). Have consulted infectious disease to optimize antibiotic treatment. COPD: Continue nebulizers and monitor for any exacerbation. No cough or shortness of breath currently Hypertension: Continue antihypertensives and monitor for normotension, adjust as needed. Blood pressures fairly stable CAD/WI: Denies chest pain currently. Continue monitor for any signs of chest pain Protein calorie malnutrition: Check a prealbumin, encourage intake of quality protein Debility: Continue therapy to improve ability to ambulate, perform ADLs and improve endurance. Anemia: Check anemia panel. Patient does have fatigue as well which may be related to ongoing anemia. Discussed during team conference. Patient will be even without the day by therapy. Continues to have pain in his sacral area due to the sacral wound. Drains are presenting a problem with therapy as they frequently become dislodged due to poor adhesion. Continue therapy and monitor progress. All records, vitals, labs and medications were reviewed. No other issues per patient, nursing or therapy. Objective - Exam Narrative Exam: MUSCULOSKELETAL SPECIALTY EXAM CONSTITUTIONAL: Well developed, well nourished, appropriately groomed, obese, Ill-appearing RESPIRATORY: Clear to auscultation bilaterally, no increased work of breathing CARDIOVASCULAR: Regular Rate/ Rhythm, no swelling, edema or tenderness in BUE or BLE. All extremities warm. GI: + bowel sounds, soft, NTTP, nondistended. INTEGUMENTARY: Colostomy on the left abdomen, midline abdominal drain, sacral wound in the gluteal cleft, otherwise, Normal, no rash, masses or bruising noted in extremities. MUSCULOSKELETAL: BUE and BLE normal without defect, crepitus, subluxation, effusion, arthritic changes or TTP. BUE 4/5, good ROM, with normal tone. BLE 4/5 good ROM, with normal tone NEURO: CN 2-12 grossly intact. Sensation intact in all extremities. Coordination intact in BUE. tremor noted in 4 extremities. POSTURE and GAIT: Sitting posture good. Balance appears reasonable. Gait deferred until seen with therapy. PSYCH: Alert, oriented x2,Confused on time , affect appears normal. Insight appears intact. - Constitutional Vitals: Vital Signs - 12hr 12/06/19 12/06/19 12/06/19 00:20 05:53 08:00 Temperature 36.7 C 36.6 C 37.2 C Pulse Rate 93 H 81 84 Respiratory 18 18 18 Rate Blood Pressure 123/51 105/54 120/54 [Left] O2 Sat by Pulse 97 96 97 Oximetry - Allied health notes Allied health notes reviewed: nursing, PT, OT - Labs CBC & Chem 7: 12/06/19 08:00 12/06/19 08:00 Labs: Laboratory Results - last 72 hr 12/06/19 12/06/19 08:00 08:00 WBC 10.5 RBC 2.81 L Hgb 7.5 L Hct 22.8 L MCV 81 L MCH 27 L MCHC 33 RDW 17.9 H Plt Count 472 H Lymph % (Auto) 10.3 L [place] % (Auto) 8.5 H Eos % (Auto) 0.5 Baso % (Auto) 0.5 Lymph # 1.1 L [place] # 0.9 H Eos # 0.1 Baso # 0.1 Seg Neutrophils % 80.2 H Seg Neutrophils # 8.4 H Sodium 137 Potassium 3.7 Chloride 98.6 Carbon Dioxide 22 Anion Gap 20 BUN 6 L Creatinine 0.5 L Estimated GFR > 60 BUN/Creatinine Ratio 12 Glucose 128 H Calcium 8.4 Total Bilirubin 0.20 AST 9 ALT 6 L Alkaline Phosphatase 128 Total Protein 5.8 L Albumin 2.1 L Albumin/Globulin Ratio 0.6 Assessment and Plan Dehiscence of abdominal wound: Continue wound care with drain to intermittent suction. Will discuss with surgery ongoing treatment and eventual continuation of drain at their discretion. Monitor for any increased or decrease in amount of drainage or changes in quality of drainage. Monitor for any further signs of possible wound infection. If the patient does develop further complications due to his complicated course he may need to be transferred back to the acute side of the hospital. Unstageable sacral wound: Continue wound care. Patient is on Rocephin for empiric therapy due to foul odor and preliminary growth of bacteria. Final culture grew Klebsiella which was susceptible to Rocephin however there are other medications that show better coverage. Have consulted infectious disease to make recommendation for optimization of antibiotic. Patient recently underwent debridement. We will continue to monitor and dress per wound care recommendations, may need further debridement going forward and will defer to surgeon for this as well. COPD:Continue medications. Supplemental O2 as needed. Monitor for signs/symptoms of exacerbation. Hypertension:Continue medication. Monitor blood pressure. Adjust medications as needed for normotension. Hold for hypotension. Hyperlipidemia: Not on medication currently, previously on pravastatin. Lipid panel was checked in October. Will restart pravastatin. CAD/WI:Left Ventricle ejection fraction 45 to 50%. Protein calorie malnutrition: Patient is eating by mouth currently. PEG tube is not being used. Will monitor his nutritional status and continue any protein supplements as needed. States that his diet is actually pretty strong currently. Check preop human. Obesity:Patient has lost a significant amount of weight during his roughly 3- month stay in the hospital. We will continue to monitor his weight as well as nutritional status. With his current weight loss he should be able to maintain a healthier weight going forward but will need to rebuild his protein status and strength/loss musculature. ADL dysfunction: OT will work on improving ability to perform ADLs (including assistive devices) to increase independence and decrease caregiver burden and improve functional transfers and mobility training. Difficulty walking: PT will work on gait training and proper use of assistive devices and advance as appropriate to use of stairs and outside ambulation on uneven surfaces. Unsteadiness on feet: PT will work on improving static and dynamic sitting and standing balance as well as proper use of assistive devices to decrease risk of falls. Abnormality of gait: PT will work to improve safety and efficiency of gait through neuromotor training and gait training along with instruction on proper use of assistive devices. Muscle weakness: PT & OT will work on strengthening exercises to improve functional strength including mixture of closed and open kinetic chain exercises. Debility: PT & OT will work on improving overall functional status to improve participation with ADLs, mobility and social involvement. Fatigue: PT & OT will work on improving endurance through aerobic exercises and therapeutic activity while monitoring patients tolerance for activity and vital signs as needed. Tobacco abuse: Patient has been without cigarettes since admission in September. Will not need Nicotine patch. Will provide typical tobacco cessation discussion tomorrow and throughout his stay in rehab to reinforce his ability to continue off tobacco. DVT ppx:Lovenox Pain: Continue physical modalities in therapy and pain medications as needed to achieve functional pain control. Sleep: Monitor and address as needed. Bowel: Monitor and address as needed. Appetite: Monitor and address as needed. Discharge planning: Pending therapy progress and care plan meeting. Will continue discussion with therapy team, SW, patient and family. Restrictions/ Precautions: Falls WB status: FWB Functional Hx: ADLs: Independent Cognition: Independent Mobility: No AD Barriers to Discharge: Decreased mobility and ability to perform self care, balance deficits, weakness Estimated Length of Stay: 1821 days Discharge Destination: Home with family
[2019-12-06] MEDS: AMIODARONE 200 MG TAB PO SCH (12:41)
[2019-12-06] MEDS: ARFORMOTEROL 15 MCG/2 ML NEBU IH SCH ×2 (13:05→20:03)
[2019-12-06] MEDS: IPRATROPIUM/ALBUTEROL SULFATE 3 ML AMPUL.NEB IH SCH ×3 (13:05→20:04)
[2019-12-06] MEDS: BUDESONIDE 0.5 MG/2 ML NEBU IH SCH ×2 (13:05→20:03)
--- NOTE | 2019-12-06 15:23 | Progress Note ---
Assessment and Plan Cultures: 12/05/2019 wound culture: Klebsiella pneumonia sensitive A&P - 54 yo M PMhx CAD, COPD, recent complicated course of bowel perforation after a colonoscopy admitted with surgical site dehiscence of the fascia. Now with: # wound infection: Status post debridement, faction not involving the fascial plane. Agree with ceftriaxone, will increase dose to 2 g. Would treat for 7-10 days Recommendations: -increase ceftriaxone to 2 g every 24 hours -Plan on 7-10 days of treatment Thank you for the consult, will follow. Morales Wing MD [facility] ([facility]) M: [phone] O: [phone] F: [phone] Subjective Date of service: 12/06/19 Principal diagnosis: Debility status post perforated bowel Interval history: Now transferred to rehab. had wound debridement done yesterday by Dr. Krause. Cultures with K pneumoniae. Objective - Exam Narrative Exam: Constitutional: Alert, cooperative. No acute distress Head, Ears, Nose: Normocephalic, atraumatic. External ears, nose normal Eyes: Conjunctivae/corneas clear. No icterus. No ptosis. Neck: Supple, no meningeal signs Oral: dentition fair, no thrush Cardiovascular: S1, S2 normal. Respiratory: Good air entry, clear to auscultation bilaterally GI: Soft, non-tender; bowel sounds normal. No peritoneal signs. Musculoskeletal: No pedal edema, no cyanosis. Skin: No rash or abscess Hem/Lymphatic: No palpable cervical or supraclavicular nodes. No lymphangitis Psych: Mood ok. Affect normal Neurological: Awake, alert, oriented. No gross abnormality - Constitutional Vitals: Vital Signs Temp Pulse Resp BP Pulse Ox 98.7 F 100 H 20 139/69 100 12/06/19 12:45 12/06/19 12:45 12/06/19 12:45 12/06/19 12:45 12/06/19 12:45 Temperature -Last 24 Hours Temperature 98.7 F Temperature 98.9 F Temperature 97.8 F Temperature 98.0 F - Labs CBC & Chem 7: 12/06/19 08:00 12/06/19 08:00 Labs: Abnormal lab results 12/06/19 12/06/19 Range/Units 08:00 08:00 RBC 2.81 L (3.65-5.03) M/mm3 Hgb 7.5 L (11.8-15.2) gm/dl Hct 22.8 L (35.5-45.6) % MCV 81 L (84-94) fl MCH 27 L (28-32) pg RDW 17.9 H (13.2-15.2) % Plt Count 472 H (140-440) K/mm3 Lymph % (Auto) 10.3 L (13.4-35.0) % [place] % (Auto) 8.5 H (0.0-7.3) % Lymph # 1.1 L (1.2-5.4) K/mm3 [place] # 0.9 H (0.0-0.8) K/mm3 Seg Neutrophils % 80.2 H (40.0-70.0) % Seg Neutrophils # 8.4 H (1.8-7.7) K/mm3 BUN 6 L (9-20) mg/dL Creatinine 0.5 L (0.8-1.5) mg/dL Glucose 128 H (75-100) mg/dL ALT 6 L (7-56) units/L Total Protein 5.8 L (6.3-8.2) g/dL Albumin 2.1 L (3.9-5) g/dL
[2019-12-06] MEDS: MORPHINE 2 MG/1 ML INJ IV PRN (20:49)
[2019-12-06] MEDS: GABAPENTIN 300 MG CAP PO SCH (21:13)
[2019-12-06] MEDS: ENOXAPARIN 40 MG/0.4 ML INJ SUB-Q SCH (21:13)
[2019-12-07] MEDS: oxyCODONE 5 MG TAB PO PRN ×3 (02:48→15:27)
[2019-12-07] MEDS: MORPHINE 2 MG/1 ML INJ IV PRN (05:52)
[2019-12-07] MEDS: METOPROLOL TARTRATE 25 MG TAB PO SCH ×3 (05:53→21:27)
[2019-12-07] MEDS: cefTRIAXone/NS 1 GM/50 ML 1 GM/50 ML BAG IV SCH (05:54)
[2019-12-07 07:31] LABS: Prealbumin 0.053 g/L (0.200-0.400)
[2019-12-07] MEDS: PANTOPRAZOLE 40 MG TAB PO SCH (08:41)
[2019-12-07] MEDS: CITALOPRAM 20 MG TAB PO SCH (08:41)
[2019-12-07] MEDS: AMIODARONE 200 MG TAB PO SCH ×2 (08:42→10:10)
[2019-12-07] MEDS: IPRATROPIUM/ALBUTEROL SULFATE 3 ML AMPUL.NEB IH SCH ×3 (10:50→21:59)
[2019-12-07] MEDS: ARFORMOTEROL 15 MCG/2 ML NEBU IH SCH ×2 (10:50→21:58)
[2019-12-07] MEDS: BUDESONIDE 0.5 MG/2 ML NEBU IH SCH ×2 (10:50→21:58)
--- NOTE | 2019-12-07 13:14 | Progress Note ---
Subjective Date of service: 12/07/19 Principal diagnosis: Debility status post perforated bowel Interval history: 54-year-old male who Developed increasing pain after colonoscopy and upon work- up was found to have a perforated bowel. He underwent surgical repair however also had dehiscence of the wound and has required several washouts. His course is complicated and he has been in the hospital since September. He developed acute respiratory failure and required intubation. He developed pneumonia and pleural effusion which has been treated and resolved. He now has an unstageable pressure wound on his sacrum which has been debrided and he is being treated with antibiotics for an infection (wound culture pending). He is debilitated and has a complex medical course which neccesitates his admission to IRU vs SNF. He will likely need ongoing debridement of the sacral wound and will need further management of the abdominal wound drain. Patient is participating in therapy and making reasonable progress. Taking rest breaks as needed. +BM. Denies pain, palpitations, dyspnea, cough, N/V, weakness, or joint pain. Abdominal wound: Continue drain per wound care. Further surgical care as needed. Adhesion of drain system slightly problematic, we'll monitor. Continue Unstageable sacral wound: Klebsiella cultured. Have consulted infectious disease to optimize antibiotic treatment - cont rocephin thru 12/15 COPD: Continue nebulizers and monitor for any exacerbation. No cough or shortness of breath currently Hypertension: Continue antihypertensives and monitor for normotension, adjust as needed. Blood pressures fairly stable CAD/VT: Denies chest pain currently. Continue monitor for any signs of chest pain Protein calorie malnutrition: Prealbumin low, encourage intake of quality protein, supplements Debility: Continue therapy to improve ability to ambulate, perform ADLs and improve endurance. Anemia: Check anemia panel. Patient does have fatigue as well which may be related to ongoing anemia. Labs c/w ACD. Monitor Pain: Not well controlled on current regimen. Discussed scheduled med for baseline with prn. Discussed risk/benefits of increased and long acting pain meds. Patient agreeable. Will need to wean as pain improves. Look to increase gabapentin Tuesday. Monitor for improvement. All records, vitals, labs and medications were reviewed. No other issues per patient, nursing or therapy. Objective - Exam Narrative Exam: MUSCULOSKELETAL SPECIALTY EXAM CONSTITUTIONAL: Well developed, well nourished, appropriately groomed, obese, Ill-appearing RESPIRATORY: Clear to auscultation bilaterally, no increased work of breathing CARDIOVASCULAR: Regular Rate/ Rhythm, no swelling, edema or tenderness in BUE or BLE. All extremities warm. GI: + bowel sounds, soft, NTTP, nondistended. INTEGUMENTARY: Colostomy on the left abdomen, midline abdominal drain, sacral wound in the gl uteal cleft, otherwise, Normal, no rash, masses or bruising noted in extremities. MUSCULOSKELETAL: BUE and BLE normal without defect, crepitus, subluxation, effusion, arthritic changes or TTP. BUE 4/5, good ROM, with normal tone. BLE 4/5 good ROM, with normal tone NEURO: CN 2-12 grossly intact. Sensation intact in all extremities. Coordination intact in BUE. tremor noted in 4 extremities. POSTURE and GAIT: Sitting posture good. Balance appears reasonable. Gait deferred until seen with therapy. PSYCH: Alert, oriented x2,Confused on time , affect appears normal. Insight appears in tact. - Constitutional Vitals: Vital Signs - 12hr 12/07/19 12/07/19 12/07/19 04:50 07:12 10:50 Temperature 36.5 C 36.7 C Pulse Rate 85 78 Pulse Rate [ 82 Anterior Bilateral Throughout] Respiratory 18 22 Rate Respiratory 20 Rate [Anterior Bilateral Throughout] Blood Pressure 106/46 104/56 O2 Sat by Pulse 90 93 Oximetry - Allied health notes Allied health notes reviewed: nursing, PT, OT FIMS assessment as documented by PT/OT/ST: Transfers Mode of Locomotion: Wheelchair Bed/Chair/Wheelchair Transfers 4. Minimal Assistance (Patient = 75% or more. FIM Score Needs touching.) Dressing-lower body Patient retrieves clothing No items: Lower Body Dressing FIM Score 5. Supv./Set-Up ([place] sets out clothes or applies pros./orth.) - Labs CBC & Chem 7: 12/06/19 08:00 12/06/19 08:00 Labs: Laboratory Results - last 72 hr 12/06/19 12/06/19 12/07/19 08:00 08:00 06:50 WBC 10.5 RBC 2.81 L Hgb 7.5 L Hct 22.8 L MCV 81 L MCH 27 L MCHC 33 RDW 17.9 H Plt Count 472 H Lymph % (Auto) 10.3 L [place] % (Auto) 8.5 H Eos % (Auto) 0.5 Baso % (Auto) 0.5 Lymph # 1.1 L [place] # 0.9 H Eos # 0.1 Baso # 0.1 Seg Neutrophils % 80.2 H Seg Neutrophils # 8.4 H Sodium 137 Potassium 3.7 Chloride 98.6 Carbon Dioxide 22 Anion Gap 20 BUN 6 L Creatinine 0.5 L Estimated GFR > 60 BUN/Creatinine Ratio 12 Glucose 128 H Calcium 8.4 Magnesium 1.80 Iron 19 L TIBC 116 L Ferritin Total Bilirubin 0.20 AST 9 ALT 6 L Alkaline Phosphatase 128 Total Protein 5.8 L Albumin 2.1 L Albumin/Globulin Ratio 0.6 Prealbumin 0.053 L Vitamin B12 Folate 12/07/19 12/07/19 12/07/19 06:50 06:50 06:50 WBC RBC Hgb Hct MCV MCH MCHC RDW Plt Count Lymph % (Auto) [place] % (Auto) Eos % (Auto) Baso % (Auto) Lymph # [place] # Eos # Baso # Seg Neutrophils % Seg Neutrophils # Sodium Potassium Chloride Carbon Dioxide Anion Gap BUN Creatinine Estimated GFR BUN/Creatinine Ratio Glucose Calcium Magnesium Iron TIBC Ferritin 697.8 H Total Bilirubin AST ALT Alkaline Phosphatase Total Protein Albumin Albumin/Globulin Ratio Prealbumin Vitamin B12 1894 H Folate 9.89 Assessment and Plan Dehiscence of abdominal wound: Continue wound care with drain to intermittent suction. Will discuss with surgery ongoing treatment and eventual continuation of drain at their discretion. Monitor for any increased or decrease in amount of drainage or changes in quality of drainage. Monitor for any further signs of possible wound infection. If the patient does develop further complications due to his complicated course he may need to be transferred back to the acute side of the hospital. Unstageable sacral wound: Continue wound care. Patient is on Rocephin for empiric therapy due to foul odor and preliminary growth of bacteria. Final culture grew Klebsiella which was susceptible to Rocephin however there are other medications that show better coverage. Have consulted infectious disease to make recommendation for optimization of antibiotic. Patient recently underwent debridement. We will continue to monitor and dress per wound care recommendations, may need further debridement going forward and will defer to surgeon for this as well. COPD:Continue medications. Supplemental O2 as needed. Monitor for signs/symptoms of exacerbation. Hypertension:Continue medication. Monitor blood pressure. Adjust medications as needed for normotension. Hold for hypotension. Hyperlipidemia: Not on medication currently, previously on pravastatin. Lipid p rea was checked in October. Will restart pravastatin. CAD/VT:Left Ventricle ejection fraction 45 to 50%. Anemia: labs c/w ACD. monitor Protein calorie malnutrition: Patient is eating by mouth currently. PEG tube is not being used. Will monitor his nutritional status and continue any protein supplements as needed. States that his diet is actually pretty strong currently. Check preop human. Obesity:Patient has lost a significant amount of weight during his roughly 3- month stay in the hospital. We will continue to monitor his weight as well as nutritional status. With his current weight loss he should be able to maintain a healthier weight going forward but will need to rebuild his protein status and strength/loss musculature. ADL dysfunction: OT will work on improving ability to perform ADLs (including assistive devices) to increase independence and decrease caregiver burden and improve functional transfers and mobility training. Difficulty walking: PT will work on gait training and proper use of assistive devices and advance as appropriate to use of stairs and outside ambulation on uneven surfaces. Unsteadiness on feet: PT will work on improving static and dynamic sitting and standing balance as well as proper use of assistive devices to decrease risk of falls. Abnormality of gait: PT will work to improve safety and efficiency of gait through neuromotor training and gait training along with instruction on proper use of assistive devices. Muscle weakness: PT & OT will work on strengthening exercises to improve functional strength including mixture of closed and open kinetic chain exercises. Debility: PT & OT will work on improving overall functional status to improve participation with ADLs, mobility and social involvement. Fatigue: PT & OT will work on improving endurance through aerobic exercises and therapeutic activity while monitoring patients tolerance for activity and vital signs as needed. Tobacco abuse: Patient has been without cigarettes since admission in September. Will not need Nicotine patch. Will provide typical tobacco cessation discussion tomorrow and throughout his stay in rehab to reinforce his ability to continue off tobacco. DVT ppx:Lovenox Pain: Continue physical modalities in therapy and pain medications as needed to achieve functional pain control. Sleep: Monitor and address as needed. Bowel: Monitor and address as needed. Appetite: Monitor and address as needed. Discharge planning: Pending therapy progress and care plan meeting. Will continue discussion with therapy team, SW, patient and family. Restrictions/ Precautions: Falls WB status: FWB Functional Hx: ADLs: Independent Cognition: Independent Mobility: No AD Barriers to Discharge: Decreased mobility and ability to perform self care, bal ance deficits, weakness Estimated Length of Stay: 1821 days Discharge Destination: Home with family
--- NOTE | 2019-12-07 13:19 | Progress Note ---
Assessment and Plan - Patient Problems (1) Large bowel perforation Onset Date: ~09/25/19 Current Visit: No Status: Acute Plan to address problem: Pt stable. 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 2) Nutrition - prealbumin low. Consider nutritional supplements either PO or via G-tube. 3) Pain control - consider addition of NSAIDs to pain regimen. 4) Sacral Ulcer - wound care per WOCN. Plan for wound vac next week if wound is clean enough. Please call with questions. Will follow peripherally. Subjective Date of service: 12/07/19 Patient Reports: Positive: tolerating a regular diet, other (reports pain in sacral area after walking) Objective Vital Signs - 12hr 12/07/19 12/07/19 12/07/19 04:50 07:12 10:50 Temperature 97.7 F 98.0 F Pulse Rate 85 78 Pulse Rate [ 82 Anterior Bilateral Throughout] Respiratory 18 22 Rate Respiratory 20 Rate [Anterior Bilateral Throughout] Blood Pressure 106/46 104/56 O2 Sat by Pulse 90 93 Oximetry - General physical appearance no distress, no pain, obese, other (looks good) - Respiratory normal expansion, normal respiratory effort - Abdomen soft, not tender, not distended - Psychiatric oriented to time, oriented to person, oriented to place, speech is normal, memory intact - Labs 12/06/19 08:00 12/06/19 08:00
--- NOTE | 2019-12-07 15:22 | Progress Note ---
Assessment and Plan Cultures: 12/05/2019 wound culture: Klebsiella pneumonia sensitive A&P - 54 yo M PMhx CAD, COPD, recent complicated course of bowel perforation after a colonoscopy admitted with surgical site dehiscence of the fascia. Now with: # wound infection: Status post debridement, faction not involving the fascial plane. Agree with ceftriaxone, will increase dose to 2 g. Would treat for 7-10 days. For wound vac next week. #complicated post-operative course from perforation - s/p multiple surgeries and courses of antibiotics. Recommendations: -continue ceftriaxone to 2 g every 24 hours -Plan on 10 days of treatment/ Stop date: 12/16/2019 Thank you for the consult, will sign off for now. Please call with any questions. Morales Wing MD [facility] ([facility]) M: [phone] O: [phone] F: [phone] Subjective Date of service: 12/07/19 Principal diagnosis: Debility status post perforated bowel Interval history: Doing well, no acute issues. remains afebrile with a normal white count. Objective - Exam Narrative Exam: Constitutional: Alert, cooperative. No acute distress Neck: Supple, no meningeal signs Oral: dentition fair, no thrush Cardiovascular: S1, S2 normal. Respiratory: Good air entry, clear to auscultation bilaterally GI: Soft, non-tender; bowel sounds normal. No peritoneal signs. Musculoskeletal: No pedal edema, no cyanosis. Skin: No rash or abscess. Sacral wond s/p debridement Hem/Lymphatic: No palpable cervical or supraclavicular nodes. No lymphangitis Psych: Mood ok. Affect normal Neurological: Awake, alert, oriented. No gross abnormality - Constitutional Vitals: Vital Signs Temp Pulse Resp BP Pulse Ox 98.8 F 86 24 108/49 91 12/07/19 11:12 12/07/19 11:12 12/07/19 11:12 12/07/19 11:12 12/07/19 11:12 Temperature -Last 24 Hours Temperature 98.8 F Temperature 98.0 F Temperature 97.7 F Temperature 98.2 F Temperature 98.4 F Temperature 98.1 F - Labs CBC & Chem 7: 12/06/19 08:00 12/06/19 08:00 Labs: Abnormal lab results 12/07/19 12/07/19 12/07/19 Range/Units 06:50 06:50 06:50 Iron 19 L (49-181) ug/dL TIBC 116 L (250-450) mcg/dL Ferritin 697.8 H (13.0-400.0) ng/mL Prealbumin 0.053 L (0.200-0.400) g/L Vitamin B12 1894 H (211-911) pg/mL
[2019-12-07] MEDS: ENOXAPARIN 40 MG/0.4 ML INJ SUB-Q SCH (21:26)
[2019-12-07] MEDS: oxyCODONE ER 10 MG TAB PO SCH (21:26)
[2019-12-07] MEDS: PRAVASTATIN 20 MG TAB PO SCH (21:26)
[2019-12-07] MEDS: GABAPENTIN 300 MG CAP PO SCH (21:26)
[2019-12-07] MEDS: cefTRIAXone/NS 2 GM/100 ML 2 GM/100 ML BAG IV SCH (21:28)
[2019-12-08] MEDS: BUDESONIDE 0.5 MG/2 ML NEBU IH SCH ×2 (08:11→21:16)
[2019-12-08] MEDS: IPRATROPIUM/ALBUTEROL SULFATE 3 ML AMPUL.NEB IH SCH ×3 (08:12→21:16)
[2019-12-08] MEDS: ARFORMOTEROL 15 MCG/2 ML NEBU IH SCH ×2 (08:12→21:16)
[2019-12-08] MEDS: oxyCODONE ER 10 MG TAB PO SCH ×2 (09:09→21:45)
[2019-12-08] MEDS: CITALOPRAM 20 MG TAB PO SCH (09:10)
[2019-12-08] MEDS: AMIODARONE 200 MG TAB PO SCH (09:11)
[2019-12-08] MEDS: PANTOPRAZOLE 40 MG TAB PO SCH (09:11)
--- NOTE | 2019-12-08 10:36 | IRU Plan of Care ---
Interdisciplinary Plan of Care - IP IRU INTERDISCIPLINARY PLAN: [facility] Inpatient Rehab Unit Plan of Care IRU Interdisciplinary Care Plan Start: 12/06/19 00:35 Freq: Admission then PRN Status: Active Protocol: Document 12/08/19 09:36 TH (Rec: 12/08/19 09:40 TH [id number]) Interdisciplinary Problem List Interdisciplinary Problem List Interdisciplinary Problem List Impaired Bathing/Grooming, Query Text:Answers will Trigger Problems Impaired Dressing,Impaired and Outcomes on Worklist. Mobility,Impaired Transfers, Pain Management,Knowledge Deficits,Impaired Skin/Tissue Integrity,Discharge Concerns, Impaired Home Management, Impaired Safety,Impaired Cardiovascular System IRU Interdisciplinary Care Plan Therapy Services Therapy Services Will Include: Physical Therapy,Occupational Query Text:Patient will be seen for a Therapy minimum of 3 hours of daily therapy 5 out of 7 days a week. Therapy intensity may be adjusted within a 7 consecutive day period to effectively serve the individual needs of the patient. Treatment Frequency/Intensity/Duration Treatment Frequency 5 days per week Treatment Intensity 3 hours pers day Treatment Duration 14-21 days Problem Area: Eating/Swallowing Eating/Swallowing Outcomes Eating/Swallowing Interventions Problem Area: Bathing/Grooming Bathing/Grooming Outcomes Improve [place] w/ Grooming,Improve [place] w/ Bathing Bathing/Grooming Interventions ADL Training,Use of Assistive Devices,Therapeutic Exercise, Therapeutic Activity, Neuromuscular Re-Education, Balance Work,Activity Tolerance Work,Patient/ Caregiver Education Problem Area: Dressing Dressing Outcomes Improve [place] w/ UB Dressing,Improve [place] w/ LB Dressing Dressing Interventions ADL Training,Use of Assistive Devices,Neuromuscular Re- Education,Therapeutic Exercise ,Balance Work,Modalities, Patient/Caregiver Education Problem Area: Mobility Mobility Outcomes Improve [place] w/ Bed Mobility,Improve [place] w/ Ambulation,Improve [place] w/ Wheelchair Mobility Interventions Therapeutic Exercise, Neuromuscular Re-Ed.,Visual/ Perceptual Training,Activity Tolerance Work,Modalities,Use of Assistive Devices,Patient/ Caregiver Education,Bed Mobility Work,Household Mobility Work,W/C Mobility Work Problem Area: Transfers Transfers Outcomes Improve [place] w/ Bed Transfers,Improve [place] w/ Toilet Transfers,Improve [place] w/ Tub/Shower Transfers,Improve [place] w/ Car Transfers Transfers Interventions Transfer Training,Therapeutic Exercise,Neuromuscular Re- Education,Visual/Perceptual Training,Activity Tolerance Work,Modalities,Use of Assistive Devices,Patient/ Caregiver Education Problem Area: Bowel/Bladder Managment Bowel/Bladder Outcomes Bowel/Bladder Interventions Problem Area: Toileting Toileting Outcomes Improve [place] w/ Toileting Toileting Interventions ADL Training,Balance Work,Use of Assistive Devices,Patient/ Caregiver Education Problem Area: Nutrition Nutrition Outcomes Nutrition Interventions Problem Area: Comprehension Comprehension Outcomes Comprehension Interventions Problem Area: Expression Expression Outcomes Expression Interventions Problem Area: Problem Solving Problem Solving Outcomes Problem Solving Interventions Problem Area: Memory Memory Outcomes Memory Interventions Problem Area: Pain Management Pain Management Outcomes Demonstrate/Verbalize Pain Strategies Pain Management Interventions Medication Management, Positioning/Turning,Patient/ Caregiver Education Problem Area: Knowledge Deficits Knowledge Deficits Outcomes Demonstrate Ability to Manage Blood Glucose,Verbalize Understanding of S/S of Stroke Knowledge Deficits Interventions Disease/Injury/Sx. Intervention Education, Medication Use Education, Disease Management Education, Health Maintainence Education, Safety Education,Energy Conservation Education Problem Area: Skin/Tissue Integrity Skin/Tissue Integrity Outcomes Exhibit Healing of Wound/ Incision,Demonstrate Understanding of Pressure Relief,Demonstrate Understanding of Self Wound Care Skin/Tissue Integrity Interventions Skin/Wound Care,Pressure Relief Instruction,Dressing Change Education,Positioning/ Turning Problem Area: Social Interaction Social Interaction Outcomes Social Interaction Interventions Problem Area: Adjustment to Disability Adjustment to Disability Outcomes Adjustment to Disability Interventions Problem Area: Discharge Concerns Discharge Concerns Outcomes Discharge w/ Necessary Equipment,Have Home Health/ Outpatient Services Discharge Concerns Interventions Discharge Planning,Equipment Assessment, Acquisition and Placement,Family/Caregiver Conference,Patient/Family/ Caregiver Counseling,Family/ Caregiver Training Problem Area: Community Reintegration Community Reintegration Outcomes Demonstrate Understanding of Community Resources,Able to Re -Enter the Community Community Reintegration Interventions Activity Tolerance Work, Leisure Activity,Work/School Evaluation Problem Area: Home Management Home Management Outcomes Improve [place] w/ Home Management Home Management Interventions Meal Preparation,Clothing Care ,Activity Tolerance Work, Leisure Skills Development, House Cleaning,Patient/ Caregiver Education Problem Area: Safety Safety Outcomes Provide Safe Environment, Perform Selfcare Safely, Demonstrate Good Safety w/ Transfers/Mobility Safety Interventions Identify Fall Risk,[place] to Environment,Reduce Environmental Hazards,Neuro Check Assessment,Implement Mechanical Devices, i.e. Chair Alarm (Post Fall Update),Re- Educate Patient/Caregiver for Safety (Post Fall Update) Problem Area: Medication Education Medication Education Outcomes Medication Education Interventions Problem Area: Diabetes Education Diabetes Education Outcomes Diabetes Education Interventions Problem Area: Oxygenation Oxygenation Outcomes Oxygenation Interventions Problem Area: Cardiovascular Cardiovascular Outcomes Maintain or Improve Cardiovascular Status Cardiovascular Interventions Assess Vital Signs at least Every 4 hours,Cardiac Monitoring, EKG and ABG as Ordered. Physician Only Medical Prognosis and Rehabilitation Potential (Completed by Physician) Good medical prognosis. Serious condition currently. Good overall rehab potential. Pain is limiting. High concern for worsening infection. This plan of care has been developed based on the findings from the pre- admission assessment, post admission physician evaluation, information gathered from the assessments from all therapy disciplines and other pertinent clinicians. The plan of care has been reviewed and discussed in collaboration with the interdisciplinary team. The plan of care will be reviewed and updated at least weekly.
--- NOTE | 2019-12-08 10:36 | Progress Note ---
Subjective Date of service: 12/08/19 Principal diagnosis: Debility status post perforated bowel Interval history: 54-year-old male who Developed increasing pain after colonoscopy and upon work- up was found to have a perforated bowel. He underwent surgical repair however also had dehiscence of the wound and has required several washouts. His course is complicated and he has been in the hospital since September. He developed acute respiratory failure and required intubation. He developed pneumonia and pleural effusion which has been treated and resolved. He now has an unstageable pressure wound on his sacrum which has been debrided and he is being treated with antibiotics for an infection (wound culture pending). He is debilitated and has a complex medical course which neccesitates his admission to IRU vs SNF. He will likely need ongoing debridement of the sacral wound and will need further management of the abdominal wound drain. Patient is participating in therapy and making reasonable progress. Taking rest breaks as needed. +BM. Denies palpitations, dyspnea, cough, N/V, weakness. Abdominal wound: Continue drain per wound care. Further surgical care as needed. Adhesion of drain system slightly problematic, we'll monitor. Continue Unstageable sacral wound: Klebsiella cultured. cont rocephin thru 12/15 COPD: Continue nebulizers and monitor for any exacerbation. No cough or shortness of breath currently Hypertension: Continue antihypertensives and monitor for normotension, adjust as needed. 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 Continue monitor for any signs of chest pain Protein calorie malnutrition: Prealbumin low, encourage intake of quality protein, supplements Debility: Continue therapy to improve ability to ambulate, perform ADLs and improve endurance. Anemia: Check anemia panel. Patient does have fatigue as well which may be related to ongoing anemia. Labs c/w ACD. Monitor Pain: Cont meds as ordered. Will need to wean as pain improves. Look to increase gabapentin Tuesday. Monitor for improvement. Sleep: Poor sleep, up most of the night. Start melatonin. All records, vitals, labs and medications were reviewed. No other issues per patient, nursing or therapy. Objective - Exam Narrative Exam: MUSCULOSKELETAL SPECIALTY EXAM CONSTITUTIONAL: Well developed, well nourished, appropriately groomed, obese, Ill-appearing RESPIRATORY: Clear to auscultation bilaterally, no increased work of breathing CARDIOVASCULAR: Regular Rate/ Rhythm, no swelling, edema or tenderness in BUE or BLE. All extremities warm. GI: + bowel sounds, soft, NTTP, nondistended. INTEGUMENTARY: Colostomy on the left abdomen, midline abdominal drain, sacral wound in the gluteal cleft, otherwise, Normal, no rash, masses or bruising noted in extremities. MUSCULOSKELETAL: BUE and BLE normal without defect, crepitus, subluxation, effusion, arthritic c hanges or TTP. BUE 4/5, good ROM, with normal tone. BLE 4/5 good ROM, with normal tone NEURO: CN 2-12 grossly intact. Sensation intact in all extremities. Coordination intact in BUE. tremor noted in 4 extremities. POSTURE and GAIT: Sitting posture good. Balance appears reasonable. Gait deferred until seen with therapy. PSYCH: Alert, Confused on date, affect appears normal. Insight appears intact. - Constitutional Vitals: Vital Signs - 12hr 12/08/19 12/08/19 12/08/19 00:04 00:28 07:45 Temperature 36.6 C 36.8 C Pulse Rate 86 90 Respiratory 18 16 Rate Blood Pressure 110/47 109/52 O2 Sat by Pulse 85 92 92 Oximetry - Allied health notes Allied health notes reviewed: nursing, PT, OT FIMS assessment as documented by PT/OT/ST: Social interaction/Memory/Problem solving Social Interaction FIM Score 4. Minimal Assistance (Interacts appropriately 75-90%.) Memory FIM Score 4. Minimal Assistance (Recognizes and remembers 75-90%.) Transfers Mode of Locomotion: Wheelchair Bed/Chair/Wheelchair Transfers 4. Minimal Assistance (Patient = 75% or more. FIM Score Needs touching.) Dressing-lower body Patient retrieves clothing No items: Lower Body Dressing FIM Score 5. Supv./Set-Up (Leslie sets out clothes or applies pros./orth.) - Labs CBC & Chem 7: 12/06/19 08:00 12/06/19 08:00 Labs: Laboratory Results - last 72 hr 12/06/19 12/06/19 12/07/19 08:00 08:00 06:50 WBC 10.5 RBC 2.81 L Hgb 7.5 L Hct 22.8 L MCV 81 L MCH 27 L MCHC 33 RDW 17.9 H Plt Count 472 H Lymph % (Auto) 10.3 L [place] % (Auto) 8.5 H Eos % (Auto) 0.5 Baso % (Auto) 0.5 Lymph # 1.1 L [place] # 0.9 H Eos # 0.1 Baso # 0.1 Seg Neutrophils % 80.2 H Seg Neutrophils # 8.4 H Sodium 137 Potassium 3.7 Chloride 98.6 Carbon Dioxide 22 Anion Gap 20 BUN 6 L Creatinine 0.5 L Estimated GFR > 60 BUN/Creatinine Ratio 12 Glucose 128 H Calcium 8.4 Magnesium 1.80 Iron 19 L TIBC 116 L Ferritin Total Bilirubin 0.20 AST 9 ALT 6 L Alkaline Phosphatase 128 Total Protein 5.8 L Albumin 2.1 L Albumin/Globulin Ratio 0.6 Prealbumin 0.053 L Vitamin B12 Folate 12/07/19 12/07/19 12/07/19 06:50 06:50 06:50 WBC RBC Hgb Hct MCV MCH MCHC RDW Plt Count Lymph % (Auto) [place]pson % (Auto) Eos % (Auto) Baso % (Auto) Lymph # [place]pson # Eos # Baso # Seg Neutrophils % Seg Neutrophils # Sodium Potassium Chloride Carbon Dioxide Anion Gap BUN Creatinine Estimated GFR BUN/Creatinine Ratio Glucose Calcium Magnesium Iron TIBC Ferritin 697.8 H Total Bilirubin AST ALT Alkaline Phosphatase Total Protein Albumin Albumin/Globulin Ratio Prealbumin Vitamin B12 1894 H Folate 9.89 Assessment and Plan Dehiscence of abdominal wound: Continue wound care with drain to intermittent suction. Will discuss with surgery ongoing treatment and eventual continuation of drain at their discretion. Monitor for any increased or decrease in amount of drainage or changes in quality of drainage. Monitor for any further signs of possible wound infection. If the patient does develop further complications due to his complicated course he may need to be transferred back to the acute side of the hospital. Unstageable sacral wound: Continue wound care. Patient is on Rocephin for empiric therapy due to foul odor and preliminary growth of bacteria. Final culture grew Klebsiella which was susceptible to Rocephin however there are other medications that show better coverage. Have consulted infectious disease to make recommendation for optimization of antibiotic. Patient recently underwent debridement. We will continue to monitor and dress per wound care recommendations, may need further debridement going forward and will defer to surgeon for this as well. COPD:Continue medications. Supplemental O2 as needed. Monitor for sign s/symptoms of exacerbation. Hypertension:Continue medication. Monitor blood pressure. Adjust medications as needed for normotension. Hold for hypotension. Hyperlipidemia: Lipid panel was checked in October. restarted home pravastatin. 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 Anemia: labs c/w ACD. monitor Protein calorie malnutrition: Patient is eating by mouth currently. PEG tube is not being used. Will monitor his nutritional status and continue any protein supplements as needed. States that his diet is actually pretty strong currently. Check preop human. Obesity:Patient has lost a significant amount of weight during his roughly 3- month stay in the hospital. We will continue to monitor his weight as well as nutritional status. With his current weight loss he should be able to maintain a healthier weight going forward but will need to rebuild his protein status and strength/loss musculature. ADL dysfunction: OT will work on improving ability to perform ADLs (including assistive devices) to increase independence and decrease caregiver burden and improve functional transfers and mobility training. Difficulty walking: PT will work on gait training and proper use of assistive devices and advance as appropriate to use of stairs and outside ambulation on u selvin surfaces. Unsteadiness on feet: PT will work on improving static and dynamic sitting and standing balance as well as proper use of assistive devices to decrease risk of falls. Abnormality of gait: PT will work to improve safety and efficiency of gait through neuromotor training and gait training along with instruction on proper use of assistive devices. Muscle weakness: PT & OT will work on strengthening exercises to improve functional strength including mixture of closed and open kinetic chain exercises. Debility: PT & OT will work on improving overall functional status to improve p articipation with ADLs, mobility and social involvement. Fatigue: PT & OT will work on improving endurance through aerobic exercises and therapeutic activity while monitoring patients tolerance for activity and vital signs as needed. Tobacco abuse: Patient has been without cigarettes since admission in September. Will not need Nicotine patch. Will provide typical tobacco cessation discussion tomorrow and throughout his stay in rehab to reinforce his ability to continue off tobacco. DVT ppx:Lovenox Pain: Continue physical modalities in therapy and pain medications as needed to achieve functional pain control. Sleep: Monitor and address as needed. Melatonin Bowel: Monitor and address as needed. Appetite: Monitor and address as needed. Discharge planning: Pending therapy progress and care plan meeting. Will continue discussion with therapy team, SW, patient and family. Restrictions/ Precautions: Falls WB status: FWB Functional Hx: ADLs: Independent Cognition: Independent Mobility: No AD Barriers to Discharge: Decreased mobility and ability to perform self care, balance deficits, weakness Estimated Length of Stay: 1821 days Discharge Destination: Home with family
[2019-12-08] MEDS: METOPROLOL TARTRATE 25 MG TAB PO SCH ×2 (13:10→21:51)
[2019-12-08] MEDS: PRAVASTATIN 20 MG TAB PO SCH (21:49)
[2019-12-08] MEDS: MELATONIN 5 MG TAB PO SCH (21:49)
[2019-12-08] MEDS: ENOXAPARIN 40 MG/0.4 ML INJ SUB-Q SCH (21:50)
[2019-12-08] MEDS: GABAPENTIN 300 MG CAP PO SCH (21:50)
[2019-12-08] MEDS: cefTRIAXone/NS 2 GM/100 ML 2 GM/100 ML BAG IV SCH (21:59)
[2019-12-08] MEDS ORDERED: ALTEPLASE 2 MG INJ IV ONE (22:31)
[2019-12-08] MEDS ORDERED: WATER FOR INJ Sterile (PF) 10 ML ONE (23:07)
[2019-12-09] MEDS: ARFORMOTEROL 15 MCG/2 ML NEBU IH SCH ×2 (08:11→21:31)
[2019-12-09] MEDS: IPRATROPIUM/ALBUTEROL SULFATE 3 ML AMPUL.NEB IH SCH ×3 (08:11→21:31)
[2019-12-09] MEDS: BUDESONIDE 0.5 MG/2 ML NEBU IH SCH ×2 (08:11→21:31)
[2019-12-09] MEDS: METOPROLOL TARTRATE 25 MG TAB PO SCH ×4 (08:27→23:32)
[2019-12-09 08:46] LABS: Hematocrit 23.2 % (35.5-45.6); Hemoglobin 7.6 gm/dl (11.8-15.2); Mean Corpuscular HGB Conc 33 % (32-34); Mean Corpuscular Volume 82 fl (84-94); Platelet Count 559 K/mm3 (140-440); Red Blood Count 2.83 M/mm3 (3.65-5.03); Red Cell Distribution Width 18.2 % (13.2-15.2)
[2019-12-09 09:08] LABS: BUN/Creatinine Ratio 8; Blood Urea Nitrogen 4 mg/dL (9-20); Calcium 8.7 mg/dL (8.4-10.2); Hemolysis Index 1
[2019-12-09] MEDS: PANTOPRAZOLE 40 MG TAB PO SCH (09:32)
[2019-12-09] MEDS: CITALOPRAM 20 MG TAB PO SCH (09:32)
[2019-12-09] MEDS: oxyCODONE ER 10 MG TAB PO SCH (09:32)
[2019-12-09] MEDS: AMIODARONE 200 MG TAB PO SCH (09:32)
[2019-12-09] MEDS: oxyCODONE 5 MG TAB PO PRN (16:08)
[2019-12-09] MEDS: GABAPENTIN 300 MG CAP PO SCH (23:32)
[2019-12-09] MEDS: PRAVASTATIN 20 MG TAB PO SCH (23:32)
[2019-12-10] MEDS: ENOXAPARIN 40 MG/0.4 ML INJ SUB-Q SCH ×2 (00:29→22:25)
[2019-12-10] MEDS: oxyCODONE ER 10 MG TAB PO SCH ×3 (00:30→22:23)
[2019-12-10] MEDS: cefTRIAXone/NS 2 GM/100 ML 2 GM/100 ML BAG IV SCH ×2 (00:31→22:22)
[2019-12-10] MEDS: METOPROLOL TARTRATE 25 MG TAB PO SCH ×3 (06:05→22:26)
[2019-12-10] MEDS: oxyCODONE 5 MG TAB PO PRN (06:06)
[2019-12-10] MEDS: PANTOPRAZOLE 40 MG TAB PO SCH (08:36)
[2019-12-10] MEDS: CITALOPRAM 20 MG TAB PO SCH (08:37)
[2019-12-10] MEDS: AMIODARONE 200 MG TAB PO SCH ×2 (08:37→09:19)
[2019-12-10] MEDS: IPRATROPIUM/ALBUTEROL SULFATE 3 ML AMPUL.NEB IH SCH ×3 (09:52→21:52)
[2019-12-10] MEDS: BUDESONIDE 0.5 MG/2 ML NEBU IH SCH ×2 (09:52→21:52)
[2019-12-10] MEDS: ARFORMOTEROL 15 MCG/2 ML NEBU IH SCH ×2 (09:52→21:52)
[2019-12-10] MEDS ORDERED: POTASSIUM CHLORIDE 20 MEQ 20 MEQ/100 ML BAG IV ONE (10:30)
--- NOTE | 2019-12-10 15:53 | Progress Note ---
Subjective Date of service: 12/10/19 Principal diagnosis: Debility status post perforated bowel Interval history: 54-year-old male who Developed increasing pain after colonoscopy and upon work- up was found to have a perforated bowel. He underwent surgical repair however also had dehiscence of the wound and has required several washouts. His course is complicated and he has been in the hospital since September. He developed acute respiratory failure and required intubation. He developed pneumonia and pleural effusion which has been treated and resolved. He now has an unstageable pressure wound on his sacrum which has been debrided and he is being treated with antibiotics for an infection (wound culture pending). He is debilitated and has a complex medical course which neccesitates his admission to IRU vs SNF. He will likely need ongoing debridement of the sacral wound and will need further management of the abdominal wound drain. Patient is participating in therapy and making reasonable progress. Taking rest breaks as needed. +BM. Denies palpitations, dyspnea, cough, N/V, weakness. Doing better in therapy. Better overall. Abdominal wound: Continue drain per wound care. Further surgical care as needed. Adhesion of drain system slightly problematic, we'll monitor. Continue Unstageable sacral wound: Klebsiella cultured. cont rocephin thru 12/15 Hypokalemia: replace and monitor Hypomagnesemia: replace and monitor COPD: Continue nebulizers and monitor for any exacerbation. No cough or shortness of breath currently Hypertension: Continue antihypertensives and monitor for normotension, adjust as needed. Blood pressures fairly stable CAD/AR: Denies chest pain currently. Continue monitor for any signs of chest pain Protein calorie malnutrition: Prealbumin low, encourage intake of quality protein, supplements Debility: Continue therapy to improve ability to ambulate, perform ADLs and improve endurance. Anemia: Check anemia panel. Patient does have fatigue as well which may be related to ongoing anemia. Labs c/w ACD. Monitor Pain: Cont meds as ordered. Will need to wean as pain improves. Look to increase gabapentin Tuesday. Monitor for improvement. Sleep: Poor sleep, up most of the night. Start melatonin. Not using CPAP. Has home CPAP here now. Wants to utilize nasal mask Discussed smoking cessation for 5 mins, offered asistance with patch, support group etc. All records, vitals, labs and medications were reviewed. No other issues per pa tient, nursing or therapy. Objective - Exam Narrative Exam: MUSCULOSKELETAL SPECIALTY EXAM CONSTITUTIONAL: Well developed, well nourished, appropriately groomed, obese, Ill-appearing RESPIRATORY: Clear to auscultation bilaterally, no increased work of breathing CARDIOVASCULAR: Regular Rate/ Rhythm, no swelling, edema or tenderness in BUE or BLE. All extremities warm. GI: + bowel sounds, soft, NTTP, nondistended. INTEGUMENTARY: Colostomy on the left abdomen, midline abdominal drain, sacral wound in the gluteal cleft, otherwise, Normal, no rash, masses or bruising noted in extremities. MUSCULOSKELETAL: BUE and BLE normal without defect, crepitus, subluxation, effusion, arthritic changes or TTP. BUE 4/5, good ROM, with normal tone. BLE 4/5 good ROM, with normal tone NEURO: CN 2-12 grossly intact. Sensation intact in all extremities. Coordination intact in BUE. tremor noted in 4 extremities. POSTURE and GAIT: Sitting posture good. Balance appears reasonable. Gait deferred until seen with therapy. PSYCH: Alert, Confused on date, affect appears normal. Insight appears intact. - Constitutional Vitals: Vital Signs - 12hr 12/10/19 12/10/19 12/10/19 06:05 08:00 09:54 Temperature 36.6 C Pulse Rate 81 87 Pulse Rate [ 82 Anterior Bilateral Throughout] Respiratory 18 Rate Respiratory 18 Rate [Anterior Bilateral Throughout] Blood Pressure 118/66 105/51 O2 Sat by Pulse 92 Oximetry 12/10/19 12/10/19 11:09 11:46 Temperature Pulse Rate 89 Pulse Rate [ Anterior Bilateral Throughout] Respiratory Rate Respiratory Rate [Anterior Bilateral Throughout] Blood Pressure 110/49 O2 Sat by Pulse 93 92 Oximetry - Allied health notes Allied health notes reviewed: nursing, PT, OT FIMS assessment as documented by PT/OT/ST: Social interaction/Memory/Problem solving Social Interaction FIM Score 5. Supervision (Needs supv. <10%. Needs encouragement to participate.) Memory FIM Score 5. Supervision (Needs cueing <10%, stressful/ unfamiliar situations.) Problem Solving FIM Score 5. Supervision (Needs cueing <10% to solve routine problems.) Transfers Mode of Locomotion: Wheelchair Bed/Chair/Wheelchair Transfers 4. Minimal Assistance (Patient = 75% or more. FIM Score Needs touching.) Eating Eating FIM Score 5. Supervision/Set-Up (Needs help w/ conta iners, cutting meat, etc.) Dressing-Upper body Patient retrieves clothing No items: Upper Body Dressing FIM Score 5. Supv./Set-Up ([place] sets out clothes or applies pros./orth.) Dressing-lower body Patient retrieves clothing No items: Lower Body Dressing FIM Score 5. Supv./Set-Up ([place] sets out clothes or applies pros./orth.) - Labs CBC & Chem 7: 12/11/19 06:00 12/11/19 06:00 Labs: Laboratory Results - last 72 hr 12/09/19 12/09/19 12/10/19 08:25 08:25 08:41 WBC 9.2 RBC 2.83 L Hgb 7.6 L Hct 23.2 L MCV 82 L MCH 27 L MCHC 33 RDW 18.2 H Plt Count 559 H Sodium 137 Potassium 3.3 L Chloride 97.9 L Carbon Dioxide 24 Anion Gap 18 BUN 4 L Creatinine 0.5 L Estimated GFR > 60 BUN/Creatinine Ratio 8 Glucose 110 H Calcium 8.7 Magnesium 1.50 L Assessment and Plan Dehiscence of abdominal wound: Continue wound care with drain to intermittent suction. Will discuss with surgery ongoing treatment and eventual continuation of drain at their discretion. Monitor for any increased or decrease in amount of drainage or changes in quality of drainage. Monitor for any further signs of possible wound infection. If the patient does develop further complications due to his complicated course he may need to be transferred back to the acute side of the hospital. Unstageable sacral wound: Continue wound care. Patient is on Rocephin for empiric therapy due to foul odor and preliminary growth of bacteria. Final culture grew Klebsiella which was susceptible to Rocephin however there are other medications that show better coverage. Have consulted infectious disease to make recommendation for optimization of antibiotic. Patient recently underwent debridement. We will continue to monitor and dress per wound care recommendations, may need further debridement going forward and will defer to surgeon for this as well. COPD:Continue medications. Supplemental O2 as needed. Monitor for signs/symptoms of exacerbation. Hypertension:Continue medication. Monitor blood pressure. Adjust medications as needed for normotension. Hold for hypotension. Hyperlipidemia: Lipid panel was checked in October. restarted home pravastatin. CAD/AR:Left Ventricle ejection fraction 45 to 50%. KALI: OK to use home CPAP with nasal mask. Hypokalemia: Replace and monitor Hypomagnesemia: Replace and monitor Anemia: labs c/w ACD. monitor Protein calorie malnutrition: Patient is eating by mouth currently. PEG tube is not being used. Will monitor his nutritional status and continue any protein supplements as needed. States that his diet is actually pretty strong currently. Check preop human. Obesity:Patient has lost a significant amount of weight during his roughly 3- month stay in the hospital. We will continue to monitor his weight as well as nutritional status. With his current weight loss he should be able to maintain a healthier weight going forward but will need to rebuild his protein status and strength/loss musculature. ADL dysfunction: OT will work on improving ability to perform ADLs (including assistive devices) to increase independence and decrease caregiver burden and improve functional transfers and mobility training. Difficulty walking: PT will work on gait training and proper use of assistive devices and advance as appropriate to use of stairs and outside ambulation on uneven surfaces. Unsteadiness on feet: PT will work on improving static and dynamic sitting and standing balance as well as proper use of assistive devices to decrease risk of falls. Abnormality of gait: PT will work to improve safety and efficiency of gait through neuromotor training and gait training along with instruction on proper use of assistive devices. Muscle weakness: PT & OT will work on strengthening exercises to improve functional strength including mixture of closed and open kinetic chain exercises. Debility: PT & OT will work on improving overall functional status to improve participation with ADLs, mobility and social involvement. Fatigue: PT & OT will work on improving endurance through aerobic exercises and therapeutic activity while monitoring patients tolerance for activity and vital signs as needed. Tobacco abuse: Patient has been without cigarettes since admission in September. Discussed with patient for 5 minutes need to not return to smoking and to avoid situations where he may be exposed and/or attempted to return to smoking. was also in the room. Patient states that they do not associate with other people that spoke necessarily and will avoid the exposure and temptation. Discussed possibilities of patch or gum as alternatives if he does start to develop cravings down the road. His benefit while since he's had a cigarette since being in the hospital and he doesn't think that he will be anything going forward. Also discussed the place for support groups . DVT ppx:Lovenox Pain: Continue physical modalities in therapy and pain medications as needed to achieve functional pain control. Sleep: Monitor and address as needed. Melatonin Bowel: Monitor and address as needed. Appetite: Monitor and address as needed. Discharge planning: Pending therapy progress and care plan meeting. Will continue discussion with therapy team, SW, patient and family. Restrictions/ Precautions: Falls WB status: FWB Functional Hx: ADLs: Independent Cognition: Independent Mobility: No AD Barriers to Discharge: Decreased mobility and ability to perform self care, balance deficits, weakness Estimated Length of Stay: 1821 days Discharge Destination: Home with family
[2019-12-10] MEDS ORDERED: MAGNESIUM SULFATE 1 GM in SODIUM CHLORIDE 0.9% 50 ML IV ONE (16:30)
[2019-12-10] MEDS: GABAPENTIN 300 MG CAP PO SCH (22:23)
[2019-12-10] MEDS: MELATONIN 5 MG TAB PO SCH ×2 (22:24→22:27)
[2019-12-10] MEDS: PRAVASTATIN 20 MG TAB PO SCH (22:25)
[2019-12-11 06:10] LABS: Hematocrit 22.6 % (35.5-45.6); Hemoglobin 7.4 gm/dl (11.8-15.2); Mean Corpuscular HGB Conc 33 % (32-34); Mean Corpuscular Volume 82 fl (84-94); Platelet Count 535 K/mm3 (140-440); Red Blood Count 2.75 M/mm3 (3.65-5.03); Red Cell Distribution Width 18.2 % (13.2-15.2)
[2019-12-11] MEDS: METOPROLOL TARTRATE 25 MG TAB PO SCH ×3 (06:22→22:18)
[2019-12-11 06:33] LABS: BUN/Creatinine Ratio 14; Blood Urea Nitrogen 7 mg/dL (9-20); Calcium 8.4 mg/dL (8.4-10.2); Hemolysis Index 1
[2019-12-11] MEDS: ARFORMOTEROL 15 MCG/2 ML NEBU IH SCH ×2 (07:43→20:41)
[2019-12-11] MEDS: IPRATROPIUM/ALBUTEROL SULFATE 3 ML AMPUL.NEB IH SCH ×3 (07:43→20:41)
[2019-12-11] MEDS: BUDESONIDE 0.5 MG/2 ML NEBU IH SCH ×2 (07:43→20:41)
[2019-12-11] MEDS: oxyCODONE ER 10 MG TAB PO SCH ×2 (09:17→23:17)
[2019-12-11] MEDS: PANTOPRAZOLE 40 MG TAB PO SCH (09:17)
[2019-12-11] MEDS: CITALOPRAM 20 MG TAB PO SCH (09:18)
[2019-12-11] MEDS: AMIODARONE 200 MG TAB PO SCH (09:30)
[2019-12-11] MEDS ORDERED: POTASSIUM CHLORIDE 10 MEQ 10 MEQ/100 ML BAG IV ONE (10:30)
[2019-12-11] MEDS ORDERED: SODIUM CHLORIDE 0.9% 500 ML 500 ML IV SCH (11:00)
--- NOTE | 2019-12-11 16:37 | Progress Note ---
Subjective Date of service: 12/11/19 Principal diagnosis: Debility status post perforated bowel Interval history: 54-year-old male who Developed increasing pain after colonoscopy and upon work- up was found to have a perforated bowel. He underwent surgical repair however also had dehiscence of the wound and has required several washouts. His course is complicated and he has been in the hospital since September. He developed acute respiratory failure and required intubation. He developed pneumonia and pleural effusion which has been treated and resolved. He now has an unstageable pressure wound on his sacrum which has been debrided and he is being treated with antibiotics for an infection (wound culture pending). He is debilitated and has a complex medical course which neccesitates his admission to IRU vs SNF. He will likely need ongoing debridement of the sacral wound and will need further management of the abdominal wound drain. Patient is participating in therapy and making reasonable progress. Taking rest breaks as needed. +BM. Denies palpitations, dyspnea, cough, N/V, weakness. Doing better in therapy. Better overall. Abdominal wound: Continue drain per wound care. Further surgical care as needed. Adhesion of drain system slightly problematic, we'll monitor. Continue Unstageable sacral wound: Klebsiella cultured. cont rocephin thru 12/15 Hypokalemia: replace and monitor. Recheck last night was 3.6 however it was 3.1 this morning on BMP. One these figures is incorrect, will recheck in replace as needed Hypomagnesemia: replace and monitor. Recheck value COPD: Continue nebulizers and monitor for any exacerbation. No cough or shortness of breath currently Hypertension: Continue antihypertensives and monitor for normotension, adjust as needed. Blood pressures fairly stable CAD/IL: Denies chest pain currently. Continue monitor for any signs of chest pain Protein calorie malnutrition: Prealbumin low, encourage intake of quality protein, supplements Debility: Continue therapy to improve ability to ambulate, perform ADLs and improve endurance. Anemia: Check anemia panel. Patient does have fatigue as well which may be related to ongoing anemia. Labs c/w ACD. Monitor Pain: Cont meds as ordered. Will need to wean as pain improves. Look to inc rease gabapentin Tuesday. Monitor for improvement. Sleep: Poor sleep, up most of the night. Start melatonin. Not using CPAP. Has home CPAP here now. Wants to utilize nasal mask. Slight much better on CPAP last night. All records, vitals, labs and medications were reviewed. No other issues per patient, nursing or therapy. Objective - Exam Narrative Exam: MUSCULOSKELETAL SPECIALTY EXAM CONSTITUTIONAL: Well developed, well nourished, appropriately groomed, obese, Ill-appearing RESPIRATORY: Clear to auscultation bilaterally, no increased work of breathing CARDIOVASCULAR: Regular Rate/ Rhythm, no swelling, edema or tenderness in BUE or BLE. All extremities warm. GI: + bowel sounds, soft, NTTP, nondistended. INTEGUMENTARY: Colostomy on the left abdomen, midline abdominal drain, sacral wound in the gluteal cleft, otherwise, Normal, no rash, masses or bruising noted in extremities. MUSCULOSKELETAL: BUE and BLE normal without defect, crepitus, subluxation, effusion, arthritic changes or TTP. BUE 4/5, good ROM, with normal tone. BLE 4/5 good ROM, with normal tone NEURO: CN 2-12 grossly intact. Sensation intact in all extremities. Coordination intact in BUE. tremor noted in 4 extremities. POSTURE and GAIT: Sitting posture good. Balance appears reasonable. Gait deferred until seen with therapy. PSYCH: Alert, Confused on date, affect appears normal. Insight appears intact. - Constitutional Vitals: Vital Signs - 12hr 12/11/19 12/11/19 12/11/19 06:22 07:45 08:07 Temperature 36.3 C L Pulse Rate 83 93 H Pulse Rate [ 84 Anterior Bilateral Throughout] Respiratory 20 Rate Respiratory 16 Rate [Anterior Bilateral Throughout] Blood Pressure 111/57 115/71 Blood Pressure [Left] O2 Sat by Pulse 92 Oximetry 12/11/19 12/11/19 15:24 15:29 Temperature Pulse Rate 84 84 Pulse Rate [ Anterior Bilateral Throughout] Respiratory Rate Respiratory Rate [Anterior Bilateral Throughout] Blood Pressure 107/62 Blood Pressure 107/62 [Left] O2 Sat by Pulse Oximetry - Allied health notes Allied health notes reviewed: nursing, PT, OT FIMS assessment as documented by PT/OT/ST: Social interaction/Memory/Problem solving Social Interaction FIM Score 5. Supervision (Needs supv. <10%. Needs encouragement to participate.) Memory FIM Score 5. Supervision (Needs cueing <10%, stressful/ unfamiliar situations.) Problem Solving FIM Score 5. Supervision (Needs cueing <10% to solve routine problems.) Transfers Mode of Locomotion: Wheelchair Bed/Chair/Wheelchair Transfers 4. Minimal Assistance (Patient = 75% or more. FIM Score Needs touching.) Eating Eating FIM Score 5. Supervision/Set-Up (Needs help w/ containers, cutting meat, etc.) Dressing-Upper body Patient retrieves clothing No items: Upper Body Dressing FIM Score 5. Supv./Set-Up ([place] sets out clothes or applies pros./orth.) Dressing-lower body Patient retrieves clothing No items: Lower Body Dressing FIM Score 3. Moderate Assistance (Patient = 50% or more) - Labs CBC & Chem 7: 12/11/19 06:00 12/11/19 06:00 Labs: Laboratory Results - last 72 hr 12/09/19 12/09/19 12/10/19 08:25 08:25 08:41 WBC 9.2 RBC 2.83 L Hgb 7.6 L Hct 23.2 L MCV 82 L MCH 27 L MCHC 33 RDW 18.2 H Plt Count 559 H Sodium 137 Potassium 3.3 L Chloride 97.9 L Carbon Dioxide 24 Anion Gap 18 BUN 4 L Creatinine 0.5 L Estimated GFR > 60 BUN/Creatinine Ratio 8 Glucose 110 H Calcium 8.7 Magnesium 1.50 L 12/10/19 12/11/19 12/11/19 16:55 06:00 06:00 WBC 7.0 RBC 2.75 L Hgb 7.4 L Hct 22.6 L MCV 82 L MCH 27 L MCHC 33 RDW 18.2 H Plt Count 535 H Sodium 139 Potassium 3.6 3.1 L Chloride 100.5 Carbon Dioxide 27 Anion Gap 15 BUN 7 L Creatinine 0.5 L Estimated GFR > 60 BUN/Creatinine Ratio 14 Glucose 89 Calcium 8.4 Magnesium Assessment and Plan Dehiscence of abdominal wound: Continue wound care with drain to intermittent suction. Will discuss with surgery ongoing treatment and eventual continuation of drain at their discretion. Monitor for any increased or decrease in amount of drainage or changes in quality of drainage. Monitor for any further signs of possible wound infection. If the patient does develop further complications due to his complicated course he may need to be transferred back to the acute side of the hospital. Unstageable sacral wound: Continue wound care. Patient is on Rocephin for empiric therapy due to foul odor and preliminary growth of bacteria. Final culture grew Klebsiella which was susceptible to Rocephin however there are other medications that show better coverage. Have consulted infectious disease to make recommendation for optimization of antibiotic. Patient recently underwent debridement. We will continue to monitor and dress per wound care recommendations, may need further debridement going forward and will defer to surgeon for this as well. COPD:Continue medications. Supplemental O2 as needed. Monitor for signs/symptoms of exacerbation. Hypertension:Continue medication. Monitor blood pressure. Adjust medications as needed for normotension. Hold for hypotension. Hyperlipidemia: Lipid panel was checked in October. restarted home pravastatin. CAD/IL:Left Ventricle ejection fraction 45 to 50%. KALI: OK to use home CPAP with nasal mask. Hypokalemia: Replace and monitor. Recheck values and accordingly. Labs pending Hypomagnesemia: Replace and monitor Anemia: labs c/w ACD. monitor Protein calorie malnutrition: Patient is eating by mouth currently. PEG tube is not being used. Will monitor his nutritional status and continue any protein supplements as needed. States that his diet is actually pretty strong currently. Check preop human. Obesity:Patient has lost a significant amount of weight during his roughly 3- month stay in the hospital. We will continue to monitor his weight as well as nutritional status. With his current weight loss he should be able to maintain a healthier weight going forward but will need to rebuild his protein status and strength/loss musculature. ADL dysfunction: OT will work on improving ability to perform ADLs (including assistive devices) to increase independence and decrease caregiver burden and improve functional transfers and mobility training. Difficulty walking: PT will work on gait training and proper use of assistive devices and advance as appropriate to use of stairs and outside ambulation on uneven surfaces. Unsteadiness on feet: PT will work on improving static and dynamic sitting and standing balance as well as proper use of assistive devices to decrease risk of falls. Abnormality of gait: PT will work to improve safety and efficiency of gait through neuromotor training and gait training along with instruction on proper use of assistive devices. Muscle weakness: PT & OT will work on strengthening exercises to improve functional strength including mixture of closed and open kinetic chain exercises. Debility: PT & OT will work on improving overall functional status to improve participation with ADLs, mobility and social involvement. Fatigue: PT & OT will work on improving endurance through aerobic exercises and therapeutic activity while monitoring patients tolerance for activity and vital signs as needed. Tobacco abuse: Patient has been without cigarettes since admission in September. Discussed with patient for 5 minutes need to not return to smoking and to avoid situations where he may be exposed and/or attempted to return to smoking. was also in the room. Patient states that they do not associate with other people that spoke necessarily and will avoid the exposure and temptation. Discussed possibilities of patch or gum as alternatives if he does start to develop cravings down the road. His benefit while since he's had a cigarette since being in the hospital and he doesn't think that he will be anything going forward. Also discussed the place for support groups . DVT ppx:Lovenox Pain: Continue physical modalities in therapy and pain medications as needed to achieve functional pain control. Sleep: Monitor and address as needed. Melatonin Bowel: Monitor and address as needed. Appetite: Monitor and address as needed. Discharge planning: Pending therapy progress and care plan meeting. Will continue discussion with therapy team, SW, patient and family. Restrictions/ Precautions: Falls WB status: FWB Functional Hx: ADLs: Independent Cognition: Independent Mobility: No AD Barriers to Discharge: Decreased mobility and ability to perform self care, balance deficits, weakness Estimated Length of Stay: 1821 days Discharge Destination: Home with family
[2019-12-11] MEDS: MORPHINE 2 MG/1 ML INJ IV PRN (20:30)
[2019-12-11] MEDS: PRAVASTATIN 20 MG TAB PO SCH (21:15)
[2019-12-11] MEDS: MELATONIN 5 MG TAB PO SCH ×2 (21:16→23:15)
[2019-12-11] MEDS: GABAPENTIN 300 MG CAP PO SCH (21:16)
[2019-12-11] MEDS: ENOXAPARIN 40 MG/0.4 ML INJ SUB-Q SCH (22:17)
[2019-12-11] MEDS: cefTRIAXone/NS 2 GM/100 ML 2 GM/100 ML BAG IV SCH (23:19)
[2019-12-12] MEDS: METOPROLOL TARTRATE 25 MG TAB PO SCH ×3 (06:21→22:07)
[2019-12-12] MEDS: oxyCODONE 5 MG TAB PO PRN (06:40)
[2019-12-12] MEDS: CITALOPRAM 20 MG TAB PO SCH (10:13)
[2019-12-12] MEDS: PANTOPRAZOLE 40 MG TAB PO SCH (10:13)
[2019-12-12] MEDS: oxyCODONE ER 10 MG TAB PO SCH (10:16)
[2019-12-12] MEDS: AMIODARONE 200 MG TAB PO SCH (10:17)
--- NOTE | 2019-12-12 11:45 | Progress Note ---
Subjective Date of service: 12/12/19 Principal diagnosis: Debility status post perforated bowel Interval history: 54-year-old male who Developed increasing pain after colonoscopy and upon work- up was found to have a perforated bowel. He underwent surgical repair however also had dehiscence of the wound and has required several washouts. His course is complicated and he has been in the hospital since September. He developed acute respiratory failure and required intubation. He developed pneumonia and pleural effusion which has been treated and resolved. He now has an unstageable pressure wound on his sacrum which has been debrided and he is being treated with antibiotics for an infection (wound culture pending). He is debilitated and has a complex medical course which neccesitates his admission to IRU vs SNF. He will likely need ongoing debridement of the sacral wound and will need further management of the abdominal wound drain. Patient is participating in therapy and making reasonable progress. Taking rest breaks as needed. +BM. Denies palpitations, dyspnea, cough, N/V, weakness. Doing better in therapy. Better overall. Spoke with Dr Krause. He will remove PEG today. He is also setting up consult with Dr Gillis at [place] after discharge for further fistula repair. Abdominal wound: Continue drain per wound care. Further surgical care as needed. Adhesion of drain system slightly problematic, we'll monitor. Continue Unstageable sacral wound: Klebsiella cultured. cont rocephin thru 12/15 Hypokalemia: replaced. monitor. Hypomagnesemia: replaced. monitor. COPD: Continue nebulizers and monitor for any exacerbation. No cough or shortness of breath currently Hypertension: Continue antihypertensives and monitor for normotension, adjust as needed. Blood pressures fairly stable CAD/GA: Denies chest pain currently. Continue monitor for any signs of chest pain Protein calorie malnutrition: Prealbumin low, encourage intake of quality protein, supplements Debility: Continue therapy to improve ability to ambulate, perform ADLs and improve endurance. Anemia: Check anemia panel. Patient does have fatigue as well which may be related to ongoing anemia. Labs c/w ACD. Monitor Pain: Cont meds as ordered. Will need to wean as pain improves. Look to in crease gabapentin Tuesday. Monitor for improvement. Sleep: Poor sleep, up most of the night. Start melatonin. Not using CPAP. Has home CPAP here now. Wants to utilize nasal mask. Sleep much better on CPAP overnight. All records, vitals, labs and medications were reviewed. No other issues per patient, nursing or therapy. Objective - Exam Narrative Exam: MUSCULOSKELETAL SPECIALTY EXAM CONSTITUTIONAL: Well developed, well nourished, appropriately groomed, obese, Ill-appearing RESPIRATORY: Clear to auscultation bilaterally, no increased work of breathing CARDIOVASCULAR: Regular Rate/ Rhythm, no swelling, edema or tenderness in BUE or BLE. All extremities warm. GI: + bowel sounds, soft, NTTP, nondistended. INTEGUMENTARY: Colostomy on the left abdomen, midline abdominal drain, sacral wound in the gluteal cleft, otherwise, Normal, no rash, masses or bruising noted in extremities. MUSCULOSKELETAL: BUE and BLE normal without defect, crepitus, subluxation, effusion, arthritic changes or TTP. BUE 4/5, good ROM, with normal tone. BLE 4/5 good ROM, with normal tone NEURO: CN 2-12 grossly intact. Sensation intact in all extremities. Coordination intact in BUE. tremor noted in 4 extremities. POSTURE and GAIT: Sitting posture good. Balance appears reasonable. Gait deferred until seen with therapy. PSYCH: Alert, Confused on date, affect appears normal. Insight appears intact. - Constitutional Vitals: Vital Signs - 12hr 12/12/19 12/12/19 12/12/19 01:00 06:21 09:25 Temperature 36.6 C Pulse Rate 80 87 Pulse Rate [ 82 Left Radial] Respiratory 18 20 Rate Blood Pressure 108/63 Blood Pressure 100/56 [Left] O2 Sat by Pulse 93 Oximetry - Allied health notes Allied health notes reviewed: nursing, PT, OT FIMS assessment as documented by PT/OT/ST: Social interaction/Memory/Problem solving Social Interaction FIM Score 5. Supervision (Needs supv. <10%. Needs encouragement to participate.) Memory FIM Score 5. Supervision (Needs cueing <10%, stressful/ unfamiliar situations.) Problem Solving FIM Score 5. Supervision (Needs cueing <10% to solve routine problems.) Transfers Mode of Locomotion: Wheelchair Bed/Chair/Wheelchair Transfers 4. Minimal Assistance (Patient = 75% or more. FIM Score Needs touching.) Eating Eating FIM Score 5. Supervision/Set-Up (Needs help w/ containers, cutting meat, etc.) Dressing-Upper body Patient retrieves clothing No items: Upper Body Dressing FIM Score 5. Supv./Set-Up ([place] sets out clothes or applies pros./orth.) Dressing-lower body Patient retrieves clothing No items: Lower Body Dressing FIM Score 3. Moderate Assistance (Patient = 50% or more) - Labs CBC & Chem 7: 12/11/19 06:00 12/11/19 Unknown Labs: Laboratory Results - last 72 hr 12/10/19 12/10/19 12/11/19 08:41 16:55 06:00 WBC 7.0 RBC 2.75 L Hgb 7.4 L Hct 22.6 L MCV 82 L MCH 27 L MCHC 33 RDW 18.2 H Plt Count 535 H Sodium Potassium 3.6 Chloride Carbon Dioxide Anion Gap BUN Creatinine Estimated GFR BUN/Creatinine Ratio Glucose Calcium Magnesium 1.50 L 12/11/19 12/11/19 06:00 Unknown WBC RBC Hgb Hct MCV MCH MCHC RDW Plt Count Sodium 139 Potassium 3.1 L 3.7 Chloride 100.5 Carbon Dioxide 27 Anion Gap 15 BUN 7 L Creatinine 0.5 L Estimated GFR > 60 BUN/Creatinine Ratio 14 Glucose 89 Calcium 8.4 Magnesium 1.80 Assessment and Plan Dehiscence of abdominal wound: Continue wound care with drain to intermittent suction. Will discuss with surgery ongoing treatment and eventual discontinuation of drain at their discretion. Monitor for any increased or decrease in amount of drainage or changes in quality of drainage. Monitor for any further signs of possible wound infection. If the patient does develop further complications due to his complicated course he may need to be transferred back to the acute side of the hospital. Unstageable sacral wound: Continue wound care. Patient is on Rocephin for Klebsiella which was susceptible . We will continue to monitor and dress per wound care recommendations, may need further debridement going forward and will defer to surgeon for this as well. COPD:Continue medications. Supplemental O2 as needed. Monitor for signs/symptoms of exacerbation. Hypertension:Continue medication. Monitor blood pressure. Adjust medications as needed for normotension. Hold for hypotension. Hyperlipidemia: Lipid panel was checked in October. restarted home pravastatin. CAD/GA:Left Ventricle ejection fraction 45 to 50%. KALI: OK to use home CPAP with nasal mask. Hypokalemia: Replace and monitor. Recheck values and accordingly. Labs pending Hypomagnesemia: Replace and monitor Anemia: labs c/w ACD. monitor Protein calorie malnutrition: Patient is eating by mouth currently. PEG tube is not being used. Will monitor his nutritional status and continue any protein supplements as needed. States that his diet is actually pretty strong curren tly. Check preop human. Obesity:Patient has lost a significant amount of weight during his roughly 3- month stay in the hospital. We will continue to monitor his weight as well as nutritional status. With his current weight loss he should be able to maintain a healthier weight going forward but will need to rebuild his protein status and strength/loss musculature. ADL dysfunction: OT will work on improving ability to perform ADLs (including assistive devices) to increase independence and decrease caregiver burden and improve functional transfers and mobility training. Difficulty walking: PT will work on gait training and proper use of assistive devices and advance as appropriate to use of stairs and outside ambulation on uneven surfaces. Unsteadiness on feet: PT will work on improving static and dynamic sitting and standing balance as well as proper use of assistive devices to decrease risk of falls. Abnormality of gait: PT will work to improve safety and efficiency of gait thro [facility] neuromotor training and gait training along with instruction on proper use of assistive devices. Muscle weakness: PT & OT will work on strengthening exercises to improve functional strength including mixture of closed and open kinetic chain exercises. Debility: PT & OT will work on improving overall functional status to improve participation with ADLs, mobility and social involvement. Fatigue: PT & OT will work on improving endurance through aerobic exercises and therapeutic activity while monitoring patients tolerance for activity and vital signs as needed. Tobacco abuse: Patient has been without cigarettes since admission in September. Cessation discussed this admission. DVT ppx:Lovenox Pain: Continue physical modalities in therapy and pain medications as needed to achieve functional pain control. Sleep: Monitor and address as needed. Melatonin Bowel: Monitor and address as needed. Appetite: Monitor and address as needed. Discharge planning: Pending therapy progress and care plan meeting. Will continue discussion with therapy team, SW, patient and family. Restrictions/ Precautions: Falls WB status: FWB Functional Hx: ADLs: Independent Cognition: Independent Mobility: No AD Barriers to Discharge: Decreased mobility and ability to perform self care, balance deficits, weakness Estimated Length of Stay: 1821 days Discharge Destination: Home with family
--- NOTE | 2019-12-12 12:38 | Progress Note ---
Assessment and Plan - Patient Problems (1) Large bowel perforation Onset Date: ~09/25/19 Current Visit: No Status: Acute Plan to address problem: Pt stable. 1) Midline wound - continue with wound division human resources manager and red rubber catheter in wound to facilitate drainage. Will leave tube in even after discharge. 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 They have taken the patient's contact info and will arrange for appt once patient discharged from rehab. 2) Nutrition - prealbumin low. Encourage PO intake and nutritional supplements. Planned to take out feeding tube today. However, patient was about to go for PT. Will return later and remove tube. 3) Pain control - per rehab 4) Sacral Ulcer - wound care per [facility]. Plan for wound vac on Tuesday. Please call with questions. Will follow peripherally. Subjective Date of service: 12/12/19 Patient Reports: Positive: no new complaints, feels better, still having pain (but restricted to sacral area now) Objective Vital Signs - 12hr 12/12/19 12/12/19 12/12/19 01:00 06:21 09:25 Temperature 97.9 F Pulse Rate 80 87 Pulse Rate [ 82 Left Radial] Respiratory 18 20 Rate Blood Pressure 108/63 Blood Pressure 100/56 [Left] O2 Sat by Pulse 93 Oximetry - General physical appearance no distress, no pain, other (looks better. ) - Eyes normal occular movement - Respiratory normal expansion, normal respiratory effort - Abdomen other (drainage tube and feeding tube in place. ostomy functioning) - Psychiatric oriented to time, oriented to person, oriented to place, speech is normal, memory intact - Labs 12/11/19 06:00 12/11/19 Unknown Diabetes panel 12/11/19 Range/Units Unknown Potassium 3.7 (3.6-5.0) mmol/L Pituitary panel 12/11/19 Range/Units Unknown Potassium 3.7 (3.6-5.0) mmol/L Adrenal panel 12/11/19 Range/Units Unknown Potassium 3.7 (3.6-5.0) mmol/L
[2019-12-12] MEDS: IPRATROPIUM/ALBUTEROL SULFATE 3 ML AMPUL.NEB IH SCH ×2 (18:02→21:37)
[2019-12-12] MEDS: ARFORMOTEROL 15 MCG/2 ML NEBU IH SCH ×2 (18:02→21:55)
[2019-12-12] MEDS: BUDESONIDE 0.5 MG/2 ML NEBU IH SCH ×2 (18:03→21:37)
[2019-12-12] MEDS: GABAPENTIN 300 MG CAP PO SCH (22:04)
[2019-12-12] MEDS: PRAVASTATIN 20 MG TAB PO SCH (22:04)
[2019-12-12] MEDS: cefTRIAXone/NS 2 GM/100 ML 2 GM/100 ML BAG IV SCH (22:05)
[2019-12-12] MEDS: ENOXAPARIN 40 MG/0.4 ML INJ SUB-Q SCH (22:05)
[2019-12-12] MEDS: MELATONIN 5 MG TAB PO SCH (22:05)
[2019-12-13] MEDS: METOPROLOL TARTRATE 25 MG TAB PO SCH ×3 (06:10→21:29)
[2019-12-13] MEDS: oxyCODONE ER 10 MG TAB PO SCH ×3 (06:12→21:33)
[2019-12-13 06:28] LABS: Hematocrit 22.4 % (35.5-45.6); Hemoglobin 7.3 gm/dl (11.8-15.2); Mean Corpuscular HGB Conc 33 % (32-34); Mean Corpuscular Volume 82 fl (84-94); Platelet Count 488 K/mm3 (140-440); Red Blood Count 2.72 M/mm3 (3.65-5.03); Red Cell Distribution Width 18.9 % (13.2-15.2)
[2019-12-13 06:52] LABS: BUN/Creatinine Ratio 20; Blood Urea Nitrogen 8 mg/dL (9-20); Calcium 8.7 mg/dL (8.4-10.2); Hemolysis Index 3
[2019-12-13] MEDS: IPRATROPIUM/ALBUTEROL SULFATE 3 ML AMPUL.NEB IH SCH ×3 (09:19→21:16)
[2019-12-13] MEDS: ARFORMOTEROL 15 MCG/2 ML NEBU IH SCH ×2 (09:19→21:16)
[2019-12-13] MEDS: BUDESONIDE 0.5 MG/2 ML NEBU IH SCH ×2 (09:19→21:16)
[2019-12-13] MEDS: CITALOPRAM 20 MG TAB PO SCH (10:45)
[2019-12-13] MEDS: AMIODARONE 200 MG TAB PO SCH (10:45)
[2019-12-13] MEDS: PANTOPRAZOLE 40 MG TAB PO SCH (10:45)
--- NOTE | 2019-12-13 13:58 | Progress Note ---
Subjective Date of service: 12/13/19 Principal diagnosis: Debility status post perforated bowel Interval history: 54-year-old male who Developed increasing pain after colonoscopy and upon work- up was found to have a perforated bowel. He underwent surgical repair however also had dehiscence of the wound and has required several washouts. His course is complicated and he has been in the hospital since September. He developed acute respiratory failure and required intubation. He developed pneumonia and pleural effusion which has been treated and resolved. He now has an unstageable pressure wound on his sacrum which has been debrided and he is being treated with antibiotics for an infection (wound culture pending). He is debilitated and has a complex medical course which neccesitates his admission to IRU vs SNF. He will likely need ongoing debridement of the sacral wound and will need further management of the abdominal wound drain. Patient is participating in therapy and making reasonable progress. Taking rest breaks as needed. +BM. Denies palpitations, dyspnea, cough, N/V, weakness. Doing better in therapy. Better overall. Spoke with Dr Krause. He will remove PEG today. He is also setting up consult with Dr Gillis at [place] after discharge for further fistula repair. Abdominal wound: Continue drain per wound care. Further surgical care as needed. Adhesion of drain system slightly problematic, we'll monitor. Continue Unstageable sacral wound: Klebsiella cultured. cont rocephin thru 12/15 Hypokalemia: replaced. monitor. Hypomagnesemia: replaced. monitor. COPD: Continue nebulizers and monitor for any exacerbation. No cough or shortness of breath currently Hypertension: Continue antihypertensives and monitor for normotension, adjust as needed. Blood pressures fairly stable CAD/[place]: Denies chest pain currently. Continue monitor for any signs of chest pain Protein calorie malnutrition: Prealbumin low, encourage intake of quality protein, supplements Debility: Continue therapy to improve ability to ambulate, perform ADLs and improve endurance. Anemia: Labs c/w ACD. Monitor Pain: Cont meds as ordered. Will need to wean as pain improves. Monitor for improvement. Sleep: melatonin. Has home CPAP here now. Wants to utilize nasal mask. S leep much better on CPAP Discussed during team conference. He is actually making good progress. Cognition much better with CPAP. Await decision to move forward with wound vac. SBYA in most activities. Will likely be able to dc next if he continues to improve.Will need RW and 3in1 along with HH. All records, vitals, labs and medications were reviewed. No other issues per patient, nursing or therapy. Objective - Exam Narrative Exam: MUSCULOSKELETAL SPECIALTY EXAM CONSTITUTIONAL: Well developed, well nourished, appropriately groomed, obese, Ill-appearing RESPIRATORY: Clear to auscultation bilaterally, no increased work of breathing CARDIOVASCULAR: Regular Rate/ Rhythm, no swelling, edema or tenderness in BUE or BLE. All extremities warm. GI: + bowel sounds, soft, NTTP, nondistended. INTEGUMENTARY: Colostomy on the left abdomen, midline abdominal drain, sacral wound in the gluteal cleft, otherwise, Normal, no rash, masses or bruising noted in extremities. MUSCULOSKELETAL: BUE and BLE normal without defect, crepitus, subluxation, effusion, arthritic changes or TTP. BUE 4/5, good ROM, with normal tone. BLE 4/5 good ROM, with normal tone NEURO: CN 2-12 grossly intact. Sensation intact in all extremities. Coordination intact in BUE. tremor noted in 4 extremities. POSTURE and GAIT: Sitting posture good. Balance appears reasonable. Gait deferred until seen with therapy. PSYCH: Alert, Confused on date, affect appears normal. Insight appears intact. - Constitutional Vitals: Vital Signs - 12hr 12/13/19 12/13/19 12/13/19 06:10 07:32 08:00 Temperature 36.4 C Pulse Rate 78 72 Pulse Rate [ 85 Anterior Bilateral Throughout] Respiratory 18 Rate Respiratory 20 Rate [Anterior Bilateral Throughout] Blood Pressure 115/65 103/56 O2 Sat by Pulse 95 Oximetry - Allied health notes Allied health notes reviewed: nursing, PT, OT FIMS assessment as documented by PT/OT/ST: Social interaction/Memory/Problem solving Social Interaction FIM Score 5. Supervision (Needs supv. <10%. Needs encouragement to participate.) Memory FIM Score 5. Supervision (Needs cueing <10%, stressful/ unfamiliar situations.) Problem Solving FIM Score 5. Supervision (Needs cueing <10% to solve routine problems.) Transfers Mode of Locomotion: Wheelchair Bed/Chair/Wheelchair Transfers 4. Minimal Assistance (Patient = 75% or more. FIM Score Needs touching.) Eating Eating FIM Score 5. Supervision/Set-Up (Needs help w/ containers, cutting meat, etc.) Dressing-Upper body Patient retrieves clothing No items: Upper Body Dressing FIM Score 5. Supv./Set-Up ([place] sets out clothes or applies pros./orth.) Dressing-lower body Patient retrieves clothing No items: Lower Body Dressing FIM Score 3. Moderate Assistance (Patient = 50% or more) - Labs CBC & Chem 7: 12/13/19 Unknown 12/13/19 Unknown Labs: Laboratory Results - last 72 hr 12/10/19 12/11/19 12/11/19 16:55 06:00 06:00 WBC 7.0 RBC 2.75 L Hgb 7.4 L Hct 22.6 L MCV 82 L MCH 27 L MCHC 33 RDW 18.2 H Plt Count 535 H Sodium 139 Potassium 3.6 3.1 L Chloride 100.5 Carbon Dioxide 27 Anion Gap 15 BUN 7 L Creatinine 0.5 L Estimated GFR > 60 BUN/Creatinine Ratio 14 Glucose 89 Calcium 8.4 Magnesium 12/11/19 12/13/19 12/13/19 Unknown Unknown Unknown WBC 7.1 RBC 2.72 L Hgb 7.3 L Hct 22.4 L MCV 82 L MCH 27 L MCHC 33 RDW 18.9 H Plt Count 488 H Sodium 140 Potassium 3.7 3.6 Chloride 103.6 Carbon Dioxide 23 Anion Gap 17 BUN 8 L Creatinine 0.4 L Estimated GFR > 60 BUN/Creatinine Ratio 20 Glucose 100 Calcium 8.7 Magnesium 1.80 Assessment and Plan Dehiscence of abdominal wound: Continue wound care with drain to intermittent suction. Will discuss with surgery ongoing treatment and eventual discontinuation of drain at their discretion. Monitor for any increased or decrease in amount of drainage or changes in quality of drainage. Monitor for any further signs of possible wound infection. If the patient does develop further complications due to his complicated course he may need to be transferred back to the acute side of the hospital. Unstageable sacral wound: Continue wound care. Patient is on Rocephin for Klebsiella which was susceptible . We will continue to monitor and dress per wound care recommendations, may need further debridement going forward and will defer to surgeon for this as well. COPD:Continue medications. Supplemental O2 as needed. Monitor for signs/symptoms of exacerbation. Hypertension:Continue medication. Monitor blood pressure. Adjust medications as needed for normotension. Hold for hypotension. Hyperlipidemia: Lipid panel was checked in October. restarted home pravastatin. CAD/[place]:Left Ventricle ejection fraction 45 to 50%. KALI: OK to use home CPAP with nasal mask. Hypokalemia: Replace and monitor. Recheck values and accordingly. Labs pending Hypomagnesemia: Replace and monitor Anemia: labs c/w ACD. monitor Protein calorie malnutrition: Patient is eating by mouth currently. PEG tube is not being used. Will monitor his nutritional status and continue any protein supplements as needed. States that his diet is actually pretty strong currently. Check preop human. Obesity:Patient has lost a significant amount of weight during his roughly 3- month stay in the hospital. We will continue to monitor his weight as well as nutritional status. With his current weight loss he should be able to maintain a healthier weight going forward but will need to rebuild his protein status and strength/loss musculature. ADL dysfunction: OT will work on improving ability to perform ADLs (including assistive devices) to increase independence and decrease caregiver burden and improve functional transfers and mobility training. Difficulty walking: PT will work on gait training and proper use of assistive devices and advance as appropriate to use of stairs and outside ambulation on uneven surfaces. Unsteadiness on feet: PT will work on improving static and dynamic sitting and standing balance as well as proper use of assistive devices to decrease risk of falls. Abnormality of gait: PT will work to improve safety and efficiency of gait through neuromotor training and gait training along with instruction on proper use of assistive devices. Muscle weakness: PT & OT will work on strengthening exercises to improve functional strength including mixture of closed and open kinetic chain exercises. Debility: PT & OT will work on improving overall functional status to improve participation with ADLs, mobility and social involvement. Fatigue: PT & OT will work on improving endurance through aerobic exercises and therapeutic activity while monitoring patients tolerance for activity and vital signs as needed. Tobacco abuse: Patient has been without cigarettes since admission in September. Cessation discussed this admission. DVT ppx:Lovenox Pain: Continue physical modalities in therapy and pain medications as needed to achieve functional pain control. Sleep: Monitor and address as needed. Melatonin Bowel: Monitor and address as needed. Appetite: Monitor and address as needed. Discharge planning: Looking at 12/20. Will need RW, 3in1 and HH. Will continue discussion with therapy team, SW, patient and family. Restrictions/ Precautions: Falls WB status: FWB Functional Hx: ADLs: Independent Cognition: Independent Mobility: No AD Barriers to Discharge: Decreased mobility and ability to perform self care, balance deficits, weakness Estimated Length of Stay: 1821 days Discharge Destination: Home with family
[2019-12-13] MEDS: GABAPENTIN 300 MG CAP PO SCH (21:27)
[2019-12-13] MEDS: MELATONIN 5 MG TAB PO SCH (21:27)
[2019-12-13] MEDS: cefTRIAXone/NS 2 GM/100 ML 2 GM/100 ML BAG IV SCH (21:28)
[2019-12-13] MEDS: ENOXAPARIN 40 MG/0.4 ML INJ SUB-Q SCH (21:28)
[2019-12-13] MEDS: PRAVASTATIN 20 MG TAB PO SCH (21:32)
[2019-12-14] MEDS: METOPROLOL TARTRATE 25 MG TAB PO SCH ×3 (06:05→22:05)
--- NOTE | 2019-12-14 09:04 | Progress Note ---
Subjective Date of service: 12/14/19 Principal diagnosis: Debility status post perforated bowel Interval history: 54-year-old male who Developed increasing pain after colonoscopy and upon work- up was found to have a perforated bowel. He underwent surgical repair however also had dehiscence of the wound and has required several washouts. His course is complicated and he has been in the hospital since September. He developed acute respiratory failure and required intubation. He developed pneumonia and pleural effusion which has been treated and resolved. He now has an unstageable pressure wound on his sacrum which has been debrided and he is being treated with antibiotics for an infection (wound culture pending). He is debilitated and has a complex medical course which neccesitates his admission to IRU vs SNF. He will likely need ongoing debridement of the sacral wound and will need further management of the abdominal wound drain. Patient is participating in therapy and making reasonable progress. Taking rest breaks as needed. +BM. Denies palpitations, dyspnea, cough, N/V, weakness. Doing better in therapy. Better overall. Spoke with Dr Krause. He will remove PEG today. He is also setting up consult with Dr Gillis at [facility] after discharge for further fistula repair. Abdominal wound: Continue drain per wound care. Further surgical care as needed. Adhesion of drain system slightly problematic, we'll monitor. Continue Unstageable sacral wound: Klebsiella cultured. cont rocephin thru 12/15. Possible wound vac soon Hypokalemia: replaced. monitor. Hypomagnesemia: replaced. monitor. COPD: Continue nebulizers and monitor for any exacerbation. No cough or shortness of breath currently Hypertension: Continue antihypertensives and monitor for normotension, adjust as needed. 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 Continue monitor for any signs of chest pain Protein calorie malnutrition: Prealbumin low, encourage intake of quality protein, supplements Debility: Continue therapy to improve ability to ambulate, perform ADLs and improve endurance. Anemia: Labs c/w ACD. Monitor Pain: Cont meds as ordered. Will need to wean as pain improves. Monitor for improvement. Sleep: melatonin. Has home CPAP here now. Wants to utilize nasal mask. Sleep much better on CPAP Will need hosp bed, mattress, RW, 3 in 1 for Discharge All records, vitals, labs and medications were reviewed. No other issues per patient, nursing or therapy. Objective - Exam Narrative Exam: MUSCULOSKELETAL SPECIALTY EXAM CONSTITUTIONAL: Well developed, well nourished, appropriately groomed, obese RESPIRATORY: no increased work of breathing CARDIOVASCULAR: no swelling, edema or tenderness in BUE or BLE. All extremities warm. GI: soft, NTTP, nondistended. INTEGUMENTARY: Colostomy on the left abdomen, midline abdominal drain, sacral wound in the gluteal cleft, otherwise, Normal, no rash, masses or bruising noted in extremities. MUSCULOSKELETAL: BUE and BLE normal without defect, crepitus, subluxation, effusion, arthritic changes or TTP. BUE 4/5, good ROM, with normal tone. BLE 4/5 good ROM, with normal tone NEURO: CN 2-12 grossly intact. Sensation intact in all extremities. Coordination intact in BUE. tremor noted in 4 extremities. POSTURE and GAIT: Sitting posture good. Balance appears reasonable. Gait deferred until seen with therapy. PSYCH: Alert, Confused on date, affect appears normal. Insight appears intact. - Constitutional Vitals: Vital Signs - 12hr 12/13/19 12/13/19 12/13/19 21:18 21:29 22:00 Temperature Pulse Rate 78 Pulse Rate [ 80 Anterior Bilateral Throughout] Respiratory Rate Respiratory 17 Rate [Abdomen] Respiratory 18 Rate [Anterior Bilateral Throughout] Respiratory 17 Rate [Rt hip/ buttock] Respiratory 17 Rate [Sacrum] Blood Pressure 116/62 Blood Pressure [Left] O2 Sat by Pulse Oximetry 12/14/19 12/14/19 12/14/19 06:03 06:05 07:06 Temperature 36.6 C 36.8 C Pulse Rate 74 74 74 Pulse Rate [ Anterior Bilateral Throughout] Respiratory 16 18 Rate Respiratory Rate [Abdomen] Respiratory Rate [Anterior Bilateral Throughout] Respiratory Rate [Rt hip/ buttock] Respiratory Rate [Sacrum] Blood Pressure 114/63 122/64 Blood Pressure 114/63 [Left] O2 Sat by Pulse 95 94 Oximetry - Allied health notes Allied health notes reviewed: nursing, PT, OT FIMS assessment as documented by PT/OT/ST: Social interaction/Memory/Problem solving Social Interaction FIM Score 5. Supervision (Needs supv. <10%. Needs encouragement to participate.) Memory FIM Score 5. Supervision (Needs cueing <10%, stressful/ unfamiliar situations.) Problem Solving FIM Score 5. Supervision (Needs cueing <10% to solve routine problems.) Transfers Mode of Locomotion: Wheelchair Bed/Chair/Wheelchair Transfers 4. Minimal Assistance (Patient = 75% or more. FIM Score Needs touching.) Eating Eating FIM Score 5. Supervision/Set-Up (Needs help w/ containers, cutting meat, etc.) Dressing-Upper body Patient retrieves clothing No items: Upper Body Dressing FIM Score 5. Supv./Set-Up ([place] sets out clothes or applies pros./orth.) Dressing-lower body Patient retrieves clothing No items: Lower Body Dressing FIM Score 3. Moderate Assistance (Patient = 50% or more) - Labs CBC & Chem 7: 12/13/19 Unknown 12/13/19 Unknown Labs: Laboratory Results - last 72 hr 12/11/19 12/13/19 12/13/19 Unknown Unknown Unknown WBC 7.1 RBC 2.72 L Hgb 7.3 L Hct 22.4 L MCV 82 L MCH 27 L MCHC 33 RDW 18.9 H Plt Count 488 H Sodium 140 Potassium 3.7 3.6 Chloride 103.6 Carbon Dioxide 23 Anion Gap 17 BUN 8 L Creatinine 0.4 L Estimated GFR > 60 BUN/Creatinine Ratio 20 Glucose 100 Calcium 8.7 Magnesium 1.80 Assessment and Plan Dehiscence of abdominal wound: Continue wound care with drain to intermittent suction. Will discuss with surgery ongoing treatment and eventual discontinuation of drain at their discretion. Monitor for any increased or decrease in amount of drainage or changes in quality of drainage. Monitor for any further signs of possible wound infection. If the patient does develop further complications due to his complicated course he may need to be transferred back to the acute side of the hospital. Unstageable sacral wound: Continue wound care. Patient is on Rocephin for Klebsiella which was susceptible . We will continue to monitor and dress per wound care recommendations, may need further debridement going forward and will defer to surgeon for this as well. COPD:Continue medications. Supplemental O2 as needed. Monitor for signs/symptoms of exacerbation. Hypertension:Continue medication. Monitor blood pressure. Adjust medications as needed for normotension. Hold for hypotension. Hyperlipidemia: Lipid panel was checked in October. restarted home pravastatin. CAD/MA:Left Ventricle ejection fraction 45 to 50%. KALI: OK to use home CPAP with nasal mask. Hypokalemia: Replace and monitor. Hypomagnesemia: Replace and monitor Anemia: labs c/w ACD. monitor Protein calorie malnutrition: Will monitor his nutritional status and continue any protein supplements as needed. States that his diet is actually pretty strong currently. Obesity:Patient has lost a significant amount of weight during his roughly 3- month stay in the hospital. We will continue to monitor his weight as well as nutritional status. With his current weight loss he should be able to maintain a healthier weight going forward but will need to rebuild his protein status and strength/loss musculature. ADL dysfunction: OT will work on improving ability to perform ADLs (including assistive devices) to increase independence and decrease caregiver burden and improve functional transfers and mobility training. Difficulty walking: PT will work on gait training and proper use of assistive devices and advance as appropriate to use of stairs and outside ambulation on uneven surfaces. Unsteadiness on feet: PT will work on improving static and dynamic sitting and standing balance as well as proper use of assistive devices to decrease risk of falls. Abnormality of gait: PT will work to improve safety and efficiency of gait through neuromotor training and gait training along with instruction on proper use of assistive devices. Muscle weakness: PT & OT will work on strengthening exercises to improve functional strength including mixture of closed and open kinetic chain exercises. Debility: PT & OT will work on improving overall functional status to improve participation with ADLs, mobility and social involvement. Fatigue: PT & OT will work on improving endurance through aerobic exercises and therapeutic activity while monitoring patients tolerance for activity and vital signs as needed. Tobacco abuse: Patient has been without cigarettes since admission in September. Cessation discussed this admission. DVT ppx:Lovenox Pain: Continue physical modalities in therapy and pain medications as needed to achieve functional pain control. Sleep: Monitor and address as needed. Melatonin Bowel: Monitor and address as needed. Appetite: Monitor and address as needed. Discharge planning: Looking at 12/20. Will need RW, 3in1, Hosp bed/mattress and HH. Will continue discussion with therapy team, SW, patient and family. Restrictions/ Precautions: Falls WB status: FWB Functional Hx: ADLs: Independent Cognition: Independent Mobility: No AD Barriers to Discharge: Decreased mobility and ability to perform self care, balance deficits, weakness Estimated Length of Stay: 1821 days Discharge Destination: Home with family
[2019-12-14] MEDS: ARFORMOTEROL 15 MCG/2 ML NEBU IH SCH ×2 (09:07→22:01)
[2019-12-14] MEDS: BUDESONIDE 0.5 MG/2 ML NEBU IH SCH ×2 (09:08→22:01)
[2019-12-14] MEDS: IPRATROPIUM/ALBUTEROL SULFATE 3 ML AMPUL.NEB IH SCH ×3 (09:08→22:01)
[2019-12-14] MEDS: PANTOPRAZOLE 40 MG TAB PO SCH (10:35)
[2019-12-14] MEDS: CITALOPRAM 20 MG TAB PO SCH (10:35)
[2019-12-14] MEDS: AMIODARONE 200 MG TAB PO SCH (10:35)
[2019-12-14] MEDS: oxyCODONE 5 MG TAB PO PRN (12:19)
[2019-12-14] MEDS: MORPHINE 2 MG/1 ML INJ IV PRN (12:40)
[2019-12-14] MEDS: oxyCODONE ER 10 MG TAB PO SCH ×2 (16:24→22:00)
[2019-12-14] MEDS: GABAPENTIN 300 MG CAP PO SCH (22:00)
[2019-12-14] MEDS: MELATONIN 5 MG TAB PO SCH (22:00)
[2019-12-14] MEDS: PRAVASTATIN 20 MG TAB PO SCH (22:00)
[2019-12-14] MEDS: ENOXAPARIN 40 MG/0.4 ML INJ SUB-Q SCH (22:00)
[2019-12-14] MEDS: cefTRIAXone/NS 2 GM/100 ML 2 GM/100 ML BAG IV SCH (22:10)
[2019-12-15] MEDS: METOPROLOL TARTRATE 25 MG TAB PO SCH ×3 (05:37→23:08)
[2019-12-15 06:37] LABS: Hematocrit 24.4 % (35.5-45.6); Hemoglobin 7.9 gm/dl (11.8-15.2); Mean Corpuscular HGB Conc 32 % (32-34); Mean Corpuscular Volume 83 fl (84-94); Platelet Count 516 K/mm3 (140-440); Red Blood Count 2.95 M/mm3 (3.65-5.03); Red Cell Distribution Width 19.2 % (13.2-15.2)
[2019-12-15 06:55] LABS: BUN/Creatinine Ratio 10; Blood Urea Nitrogen 6 mg/dL (9-20); Hemolysis Index 3
[2019-12-15] MEDS: ARFORMOTEROL 15 MCG/2 ML NEBU IH SCH ×2 (09:06→19:30)
[2019-12-15] MEDS: IPRATROPIUM/ALBUTEROL SULFATE 3 ML AMPUL.NEB IH SCH ×3 (09:06→19:32)
[2019-12-15] MEDS: BUDESONIDE 0.5 MG/2 ML NEBU IH SCH ×2 (09:06→19:30)
--- NOTE | 2019-12-15 09:40 | Progress Note ---
Subjective Date of service: 12/15/19 Principal diagnosis: Debility status post perforated bowel Interval history: 54-year-old male who Developed increasing pain after colonoscopy and upon work- up was found to have a perforated bowel. He underwent surgical repair however also had dehiscence of the wound and has required several washouts. His course is complicated and he has been in the hospital since September. He developed acute respiratory failure and required intubation. He developed pneumonia and pleural effusion which has been treated and resolved. He now has an unstageable pressure wound on his sacrum which has been debrided and he is being treated with antibiotics for an infection (wound culture pending). He is debilitated and has a complex medical course which neccesitates his admission to IRU vs SNF. He will likely need ongoing debridement of the sacral wound and will need further management of the abdominal wound drain. Patient is participating in therapy and making reasonable progress. Taking rest breaks as needed. +BM. Denies palpitations, dyspnea, cough, N/V, weakness. Doing better in therapy. Better overall. Abdominal wound: Continue drain per wound care. Further surgical care as needed. Adhesion of drain system slightly problematic, we'll monitor. Continue Unstageable sacral wound: Klebsiella cultured. cont rocephin thru 12/15. wound vac placed yesterday Hypokalemia: replaced. monitor. Hypomagnesemia: replaced. monitor. COPD: Continue nebulizers and monitor for any exacerbation. No cough or shortness of breath currently Hypertension: Continue antihypertensives and monitor for normotension, adjust as needed. Blood pressures fairly stable CAD/OK: Denies chest pain currently. Continue monitor for any signs of chest pain Protein calorie malnutrition: Prealbumin low, encourage intake of quality protein, supplements Debility: Continue therapy to improve ability to ambulate, perform ADLs and improve endurance. Anemia: Labs c/w ACD. Monitor Pain: Cont meds as ordered. Will need to wean as pain improves. Monitor for improvement. Sleep: melatonin. Has home CPAP here now. Wants to utilize nasal mask. Sleep much better on CPAP Will need hosp bed, mattress, RW, 3 in 1 for Discharge All records, vitals, labs and medications were reviewed. No other issues per patient, nursing or therapy. Objective - Exam Narrative Exam: MUSCULOSKELETAL SPECIALTY EXAM CONSTITUTIONAL: Well developed, well nourished, appropriately groomed, obese RESPIRATORY: CTAB. no increased work of breathing CARDIOVASCULAR: RRR. no swelling, edema or tenderness in BUE or BLE. All extremities warm. GI: soft, NTTP, nondistended. INTEGUMENTARY: Colostomy on the left abdomen, midline abdominal drain, sacral wound in the gluteal cleft, otherwise, Normal, no rash, masses or bruising noted in extremities. MUSCULOSKELETAL: BUE and BLE normal without defect, crepitus, subluxation, effusion, arthritic changes or TTP. BUE 4/5, good ROM, with normal tone. BLE 4/5 good ROM, with normal tone NEURO: CN 2-12 grossly intact. Sensation intact in all extremities. Coordination intact in BUE. tremor noted in 4 extremities. POSTURE and GAIT: Sitting posture good. Balance appears reasonable. Gait deferred until seen with therapy. PSYCH: Alert, Confused on date, affect appears normal. Insight appears intact. - Constitutional Vitals: Vital Signs - 12hr 12/14/19 12/15/19 12/15/19 22:05 00:35 05:37 Temperature 36.7 C Pulse Rate 72 72 70 Pulse Rate [ Anterior Bilateral Throughout] Respiratory 17 Rate Respiratory Rate [Anterior Bilateral Throughout] Blood Pressure 109/54 109/56 117/57 O2 Sat by Pulse 95 Oximetry 12/15/19 12/15/19 07:54 09:06 Temperature 36.3 C L Pulse Rate 80 Pulse Rate [ 80 Anterior Bilateral Throughout] Respiratory 18 Rate Respiratory 20 Rate [Anterior Bilateral Throughout] Blood Pressure 104/57 O2 Sat by Pulse 97 Oximetry - Allied health notes Allied health notes reviewed: nursing, PT, OT FIMS assessment as documented by PT/OT/ST: Social interaction/Memory/Problem solving Social Interaction FIM Score 5. Supervision (Needs supv. <10%. Needs encouragement to participate.) Memory FIM Score 5. Supervision (Needs cueing <10%, stressful/ unfamiliar situations.) Problem Solving FIM Score 5. Supervision (Needs cueing <10% to solve routine problems.) Transfers Mode of Locomotion: Wheelchair Bed/Chair/Wheelchair Transfers 4. Minimal Assistance (Patient = 75% or more. FIM Score Needs touching.) Eating Eating FIM Score 5. Supervision/Set-Up (Needs help w/ containers, cutting meat, etc.) Dressing-Upper body Patient retrieves clothing No items: Upper Body Dressing FIM Score 5. Supv./Set-Up ([place] sets out clothes or applies pros./orth.) Dressing-lower body Patient retrieves clothing No items: Lower Body Dressing FIM Score 3. Moderate Assistance (Patient = 50% or more) - Labs CBC & Chem 7: 12/15/19 05:52 12/15/19 05:52 Labs: Laboratory Results - last 72 hr 12/13/19 12/13/19 12/15/19 Unknown Unknown 05:52 WBC 7.1 8.3 RBC 2.72 L 2.95 L Hgb 7.3 L 7.9 L Hct 22.4 L 24.4 L MCV 82 L 83 L MCH 27 L 27 L MCHC 33 32 RDW 18.9 H 19.2 H Plt Count 488 H 516 H Sodium 140 Potassium 3.6 Chloride 103.6 Carbon Dioxide 23 Anion Gap 17 BUN 8 L Creatinine 0.4 L Estimated GFR > 60 BUN/Creatinine Ratio 20 Glucose 100 Calcium 8.7 12/15/19 05:52 WBC RBC Hgb Hct MCV MCH MCHC RDW Plt Count Sodium 142 Potassium 3.9 Chloride 102.2 Carbon Dioxide 26 Anion Gap 18 BUN 6 L Creatinine 0.6 L Estimated GFR > 60 BUN/Creatinine Ratio 10 Glucose 75 Calcium 9.0 Assessment and Plan Dehiscence of abdominal wound: Continue wound care with drain to intermittent suction. Will discuss with surgery ongoing treatment and eventual discontinuation of drain at their discretion. Monitor for any increased or decrease in amount of drainage or changes in quality of drainage. Monitor for any further signs of possible wound infection. If the patient does develop further complications due to his complicated course he may need to be transferred back to the acute side of the hospital. Unstageable sacral wound: Continue wound care. Estee completed 12/15. Wound vac. COPD:Continue medications. Supplemental O2 as needed. Monitor for signs/symptoms of exacerbation. Hypertension:Continue medication. Monitor blood pressure. Adjust medications as needed for normotension. Hold for hypotension. Hyperlipidemia: Lipid panel was checked in October. restarted home pravastatin. CAD/OK:Left Ventricle ejection fraction 45 to 50%. KALI: OK to use home CPAP with nasal mask. Hypokalemia: Replace and monitor. Hypomagnesemia: Replace and monitor Anemia: labs c/w ACD. monitor Protein calorie malnutrition: Will monitor his nutritional status and continue any protein supplements as needed. States that his diet is actually pretty strong currently. Obesity:Patient has lost a significant amount of weight during his roughly 3- month stay in the hospital. We will continue to monitor his weight as well as nutritional status. With his current weight loss he should be able to maintain a healthier weight going forward but will need to rebuild his protein status and strength/loss musculature. ADL dysfunction: OT will work on improving ability to perform ADLs (including assistive devices) to increase independence and decrease caregiver burden and improve functional transfers and mobility training. Difficulty walking: PT will work on gait training and proper use of assistive devices and advance as appropriate to use of stairs and outside ambulation on uneven surfaces. Unsteadiness on feet: PT will work on improving static and dynamic sitting and standing balance as well as proper use of assistive devices to decrease risk of falls. Abnormality of gait: PT will work to improve safety and efficiency of gait through neuromotor training and gait training along with instruction on proper use of assistive devices. Muscle weakness: PT & OT will work on strengthening exercises to improve functional strength including mixture of closed and open kinetic chain exercises. Debility: PT & OT will work on improving overall functional status to improve participation with ADLs, mobility and social involvement. Fatigue: PT & OT will work on improving endurance through aerobic exercises and therapeutic activity while monitoring patients tolerance for activity and vital signs as needed. Tobacco abuse: Patient has been without cigarettes since admission in September. Cessation discussed this admission. DVT ppx:Lovenox Pain: Continue physical modalities in therapy and pain medications as needed to achieve functional pain control. Sleep: Monitor and address as needed. Melatonin Bowel: Monitor and address as needed. Appetite: Monitor and address as needed. Discharge planning: Looking at 12/20. Will need RW, 3in1, Hosp bed/mattress and HH. Will continue discussion with therapy team, SW, patient and family. Restrictions/ Precautions: Falls WB status: FWB Functional Hx: ADLs: Independent Cognition: Independent Mobility: No AD Barriers to Discharge: Decreased mobility and ability to perform self care, balance deficits, weakness Estimated Length of Stay: 1821 days Discharge Destination: Home with family
[2019-12-15] MEDS: AMIODARONE 200 MG TAB PO SCH (09:58)
[2019-12-15] MEDS: PANTOPRAZOLE 40 MG TAB PO SCH (10:14)
[2019-12-15] MEDS: oxyCODONE ER 10 MG TAB PO SCH ×2 (10:14→23:07)
[2019-12-15] MEDS: CITALOPRAM 20 MG TAB PO SCH (10:14)
[2019-12-15] MEDS: MELATONIN 5 MG TAB PO SCH (21:06)
[2019-12-15] MEDS: PRAVASTATIN 20 MG TAB PO SCH (21:06)
[2019-12-15] MEDS: GABAPENTIN 300 MG CAP PO SCH (21:07)
[2019-12-15] MEDS: ENOXAPARIN 40 MG/0.4 ML INJ SUB-Q SCH (22:08)
[2019-12-15] MEDS: cefTRIAXone/NS 2 GM/100 ML 2 GM/100 ML BAG IV SCH (23:09)
[2019-12-16] MEDS: METOPROLOL TARTRATE 25 MG TAB PO SCH ×3 (06:37→21:33)
[2019-12-16] MEDS: IPRATROPIUM/ALBUTEROL SULFATE 3 ML AMPUL.NEB IH SCH ×3 (09:24→21:04)
[2019-12-16] MEDS: ARFORMOTEROL 15 MCG/2 ML NEBU IH SCH ×2 (09:24→21:04)
[2019-12-16] MEDS: BUDESONIDE 0.5 MG/2 ML NEBU IH SCH ×2 (09:24→21:04)
[2019-12-16] MEDS: AMIODARONE 200 MG TAB PO SCH (10:39)
[2019-12-16] MEDS: oxyCODONE ER 10 MG TAB PO SCH (10:40)
[2019-12-16] MEDS: PANTOPRAZOLE 40 MG TAB PO SCH (10:40)
[2019-12-16] MEDS: CITALOPRAM 20 MG TAB PO SCH (10:40)
[2019-12-16] MEDS: MELATONIN 5 MG TAB PO SCH (21:28)
[2019-12-16] MEDS: GABAPENTIN 300 MG CAP PO SCH (21:28)
[2019-12-16] MEDS: ENOXAPARIN 40 MG/0.4 ML INJ SUB-Q SCH (21:29)
[2019-12-16] MEDS: PRAVASTATIN 20 MG TAB PO SCH (21:29)
[2019-12-16] MEDS: cefTRIAXone/NS 2 GM/100 ML 2 GM/100 ML BAG IV SCH (21:42)
[2019-12-17] MEDS: oxyCODONE ER 10 MG TAB PO SCH ×3 (02:43→21:28)
[2019-12-17] MEDS: METOPROLOL TARTRATE 25 MG TAB PO SCH ×3 (06:08→21:30)
[2019-12-17] MEDS: ARFORMOTEROL 15 MCG/2 ML NEBU IH SCH ×2 (08:32→22:25)
[2019-12-17] MEDS: BUDESONIDE 0.5 MG/2 ML NEBU IH SCH ×2 (08:32→22:23)
[2019-12-17] MEDS: IPRATROPIUM/ALBUTEROL SULFATE 3 ML AMPUL.NEB IH SCH ×4 (08:34→22:24)
[2019-12-17] MEDS: AMIODARONE 200 MG TAB PO SCH (09:09)
[2019-12-17] MEDS: CITALOPRAM 20 MG TAB PO SCH (09:10)
[2019-12-17] MEDS: PANTOPRAZOLE 40 MG TAB PO SCH (09:10)
--- NOTE | 2019-12-17 10:32 | Progress Note ---
Subjective Date of service: 12/17/19 Principal diagnosis: Debility status post perforated bowel Interval history: 54-year-old male who Developed increasing pain after colonoscopy and upon work- up was found to have a perforated bowel. He underwent surgical repair however also had dehiscence of the wound and has required several washouts. His course is complicated and he has been in the hospital since September. He developed acute respiratory failure and required intubation. He developed pneumonia and pleural effusion which has been treated and resolved. He now has an unstageable pressure wound on his sacrum which has been debrided and he is being treated with antibiotics for an infection (wound culture pending). He is debilitated and has a complex medical course which neccesitates his admission to IRU vs SNF. He will likely need ongoing debridement of the sacral wound and will need further management of the abdominal wound drain. Patient is participating in therapy and making reasonable progress. Taking rest breaks as needed. +BM. Denies palpitations, dyspnea, cough, N/V, weakness. Doing better in therapy. Better overall. Abdominal wound: Continue drain per wound care. Further surgical care as needed. Adhesion of drain system slightly problematic, we'll monitor. Continue Unstageable sacral wound: Klebsiella cultured. Completed rocephin. wound vac placed, forms filled out for home vac Hypokalemia: Stable. monitor. Hypomagnesemia: Stable. monitor. COPD: Continue nebulizers and monitor for any exacerbation. No cough or shortness of breath currently Hypertension: Continue antihypertensives and monitor for normotension, adjust as needed. 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 Continue monitor for any signs of chest p ain Protein calorie malnutrition: Prealbumin low, encourage intake of quality protein, supplements Debility: Continue therapy to improve ability to ambulate, perform ADLs and improve endurance. Anemia: Labs c/w ACD. Monitor Pain: Cont meds as ordered. Will need to wean as pain improves. Monitor for improvement. Sleep: melatonin. Has home CPAP here now. Wants to utilize nasal mask. Sleep much better on CPAP Will need hosp bed, mattress, RW, 3 in 1 for Discharge All records, vitals, labs and medications were reviewed. No other issues per patient, nursing or therapy. Objective - Exam Narrative Exam: MUSCULOSKELETAL SPECIALTY EXAM CONSTITUTIONAL: Well developed, well nourished, appropriately groomed, obese RESPIRATORY: CTAB. no increased work of breathing CARDIOVASCULAR: RRR. no swelling, edema or tenderness in BUE or BLE. All extremities warm. GI: soft, NTTP, nondistended. INTEGUMENTARY: Colostomy on the left abdomen, midline abdominal drain, sacral wound in the gluteal cleft (wound vac), otherwise, Normal, no rash, masses or bruising noted in extremities. MUSCULOSKELETAL: BUE and BLE normal without defect, crepitus, subluxation, effusion, arthritic changes or TTP. BUE 4/5, good ROM, with normal tone. BLE 4/5 good ROM, with normal tone NEURO: CN 2-12 grossly intact. Sensation intact in all extremities. Coordination intact in BUE. Decreased tremor noted in extremities since restarting CPAP. POSTURE and GAIT: Sitting posture good. Balance appears reasonable. Gait reasonable, some minor unsteadiness, close supervision with RW. PSYCH: Alert, Ox3 affect appears normal. Insight appears intact. - Constitutional Vitals: Vital Signs - 12hr 12/17/19 12/17/19 12/17/19 02:43 06:08 07:54 Temperature 36.9 C Pulse Rate 72 74 Pulse Rate [ Anterior Bilateral Throughout] Respiratory 17 18 Rate Respiratory Rate [Anterior Bilateral Throughout] Blood Pressure 126/65 113/59 O2 Sat by Pulse 96 Oximetry 12/17/19 08:25 Temperature Pulse Rate Pulse Rate [ 80 Anterior Bilateral Throughout] Respiratory Rate Respiratory 16 Rate [Anterior Bilateral Throughout] Blood Pressure O2 Sat by Pulse Oximetry - Allied health notes Allied health notes reviewed: nursing, PT, OT FIMS assessment as documented by PT/OT/ST: Social interaction/Memory/Problem solving Social Interaction FIM Score 6. Mod. [place] (Mostly appropriate. May need meds. No supv.) Memory FIM Score 5. Supervision (Needs cueing <10%, stressful/ unfamiliar situations.) Problem Solving FIM Score 6. Mod. [place] (Mild difficulty or needs more time w/ complex.) Transfers Mode of Locomotion: Wheelchair Bed/Chair/Wheelchair Transfers 5. Supervision (Needs supv. or set-up for FIM Score sliding board, foot rests.) Eating Eating FIM Score 5. Supervision/Set-Up (Needs help w/ containers, cutting meat, etc.) Dressing-Upper body Patient retrieves clothing Yes items: Upper Body Dressing FIM Score 5. Supv./Set-Up ([place] sets out clothes or applies pros./orth.) Dressing-lower body Patient retrieves clothing Yes items: Lower Body Dressing FIM Score 5. Supv./Set-Up ([place] sets out clothes or applies pros./orth.) - Labs CBC & Chem 7: 12/15/19 05:52 12/15/19 05:52 Labs: Laboratory Results - last 72 hr 12/15/19 12/15/19 12/15/19 05:52 05:52 09:44 WBC 8.3 RBC 2.95 L Hgb 7.9 L Hct 24.4 L MCV 83 L MCH 27 L MCHC 32 RDW 19.2 H Plt Count 516 H Sodium 142 Potassium 3.9 Chloride 102.2 Carbon Dioxide 26 Anion Gap 18 BUN 6 L Creatinine 0.6 L Estimated GFR > 60 BUN/Creatinine Ratio 10 Glucose 75 Calcium 9.0 Magnesium 1.80 Assessment and Plan Dehiscence of abdominal wound: Continue wound care with drain to intermittent suction. Will discuss with surgery ongoing treatment and eventual discontinuation of drain at their discretion. Monitor for any increased or decrease in amount of drainage or changes in quality of drainage. Monitor for any further signs of possible wound infection. If the patient does develop further complications due to his complicated course he may need to be transferred back to the acute side of the hospital. Unstageable sacral wound: Continue wound care. Rocephin completed 12/15. Wound vac. COPD:Continue medications. Supplemental O2 as needed. Monitor for signs/symptoms of exacerbation. Hypertension:Continue medication. Monitor blood pressure. Adjust medications as needed for normotension. Hold for hypotension. Hyperlipidemia: Lipid panel was checked in October. restarted home pravastatin. CAD/MT:Left Ventricle ejection fraction 45 to 50%. KALI: OK to use home CPAP with nasal mask. Improved since starting use. Hypokalemia: Replaced and monitor. Hypomagnesemia: Replaced and monitor Anemia: labs c/w ACD. monitor Protein calorie malnutrition: Will monitor his nutritional status and continue any protein supplements as needed. States that his diet is actually pretty strong currently. Obesity:Patient has lost a significant amount of weight during his roughly 3- month stay in the hospital. We will continue to monitor his weight as well as nutritional status. With his current weight loss he should be able to maintain a healthier weight going forward but will need to rebuild his protein status and strength/loss musculature. ADL dysfunction: OT will work on improving ability to perform ADLs (including assistive devices) to increase independence and decrease caregiver burden and improve functional transfers and mobility training. Difficulty walking: PT will work on gait training and proper use of assistive devices and advance as appropriate to use of stairs and outside ambulation on uneven surfaces. Unsteadiness on feet: PT will work on improving static and dynamic sitting and standing balance as well as proper use of assistive devices to decrease risk of falls. Abnormality of gait: PT will work to improve safety and efficiency of gait through neuromotor training and gait training along with instruction on proper use of assistive devices. Muscle weakness: PT & OT will work on strengthening exercises to improve functional strength including mixture of closed and open kinetic chain exercises. Debility: PT & OT will work on improving overall functional status to improve participation with ADLs, mobility and social involvement. Fatigue: PT & OT will work on improving endurance through aerobic exercises and therapeutic activity while monitoring patients tolerance for activity and vital signs as needed. Tobacco abuse: Patient has been without cigarettes since admission in September. Cessation discussed this admission. DVT ppx:Lovenox Pain: Continue physical modalities in therapy and pain medications as needed to achieve functional pain control. Sleep: Monitor and address as needed. Melatonin Bowel: Monitor and address as needed. Appetite: Monitor and address as needed. Discharge planning: Looking at 12/20. Will need RW, 3in1, Hosp bed/mattress and HH. Will continue discussion with therapy team, SW, patient and family. Restrictions/ Precautions: Falls WB status: FWB Functional Hx: ADLs: Independent Cognition: Independent Mobility: No AD Barriers to Discharge: Decreased mobility and ability to perform self care, balance deficits, weakness Estimated Length of Stay: 1821 days Discharge Destination: Home with family DME: Hospital bed: Patient meets requirements for provision of hospital bed per all guidelines. We will need an adjustable bed with a low air loss specialty mattress due to large sacral pressure wound that is currently being treated with wound VAC. The wound measurements are 5 x 2 x 3.3 cm. Due to the amount of slough it was initially called unstageable however due to the depth it is likely at least stage III if not stage IV. Bed needed to provide for pain relief as well as to prevent worsening of the pressure wound and to allow for proper wound healing. Due to the patient's condition he will be homebound and will qualify for home health PT, OT and nursing. Patient will require rolling walker due to unsteadiness in gait and decreased balance. He is safe to ambulate with the rolling walker and close supervision at this point and will hopefully progress to being O to walk modified independent. He will also need a 3 in 1 in order to safely utilize a shower and to prevent his propensity for falling in a wet environment coupled with his unsteadiness on his feet. Wound VAC paperwork has been filled out and will be ordered to be delivered at discharge. Patient will need to follow-up in outpatient wound clinic for further wound VAC monitoring, management and possible debridements.
[2019-12-17] MEDS: GABAPENTIN 300 MG CAP PO SCH (21:30)
[2019-12-17] MEDS: MELATONIN 5 MG TAB PO SCH (21:30)
[2019-12-17] MEDS: ENOXAPARIN 40 MG/0.4 ML INJ SUB-Q SCH (21:30)
[2019-12-17] MEDS: PRAVASTATIN 20 MG TAB PO SCH (21:31)
[2019-12-17] MEDS: MORPHINE 2 MG/1 ML INJ IV PRN (22:48)
[2019-12-18] MEDS: METOPROLOL TARTRATE 25 MG TAB PO SCH ×3 (05:50→21:47)
[2019-12-18] MEDS: BUDESONIDE 0.5 MG/2 ML NEBU IH SCH ×2 (07:35→21:43)
[2019-12-18] MEDS: ARFORMOTEROL 15 MCG/2 ML NEBU IH SCH ×2 (07:35→21:43)
[2019-12-18] MEDS: IPRATROPIUM/ALBUTEROL SULFATE 3 ML AMPUL.NEB IH SCH ×3 (07:37→21:43)
[2019-12-18] MEDS: CITALOPRAM 20 MG TAB PO SCH (08:45)
[2019-12-18] MEDS: PANTOPRAZOLE 40 MG TAB PO SCH (08:45)
[2019-12-18] MEDS: AMIODARONE 200 MG TAB PO SCH (11:41)
--- NOTE | 2019-12-18 12:05 | Progress Note ---
Subjective Date of service: 12/18/19 Principal diagnosis: Debility status post perforated bowel Interval history: 54-year-old male who Developed increasing pain after colonoscopy and upon work- up was found to have a perforated bowel. He underwent surgical repair however also had dehiscence of the wound and has required several washouts. His course is complicated and he has been in the hospital since September. He developed acute respiratory failure and required intubation. He developed pneumonia and pleural effusion which has been treated and resolved. He now has an unstageable pressure wound on his sacrum which has been debrided and he is being treated with antibiotics for an infection (wound culture pending). He is debilitated and has a complex medical course which neccesitates his admission to IRU vs SNF. He will likely need ongoing debridement of the sacral wound and will need further management of the abdominal wound drain. Patient is participating in therapy and making reasonable progress. Taking rest breaks as needed. +BM. Denies palpitations, dyspnea, cough, N/V, weakness. Doing better in therapy. Better overall. Abdominal wound: Continue drain per wound care. Further surgical care as needed. Adhesion of drain system slightly problematic, we'll monitor. Continue Unstageable sacral wound: Klebsiella cultured. Completed rocephin. wound vac placed, forms filled out for home vac COPD: Continue nebulizers and monitor for any exacerbation. No cough or shortness of breath currently Hypertension: Continue antihypertensives and monitor for normotension, adjust as needed. Blood pressures fairly stable CAD/LA: Denies chest pain currently. Continue monitor for any signs of chest pain Protein calorie malnutrition: Prealbumin low, encourage intake of quality protein, supplements Debility: Continue therapy to improve ability to ambulate, perform ADLs and improve endurance. Anemia: Labs c/w ACD. Monitor Pain: Cont meds as ordered. Will need to wean as pain improves. Monitor for improvement. Sleep: melatonin. Has home CPAP here now. Wants to utilize nasal mask. Sleep much better on CPAP Hypokalemia: Stable. monitor. Hypomagnesemia: Stable. monitor. Will need hosp bed, mattress, RW, 3 in 1 for Discharge All records, vitals, labs and medications were reviewed. No other issues per patient, nursing or therapy. Objective - Exam Narrative Exam: MUSCULOSKELETAL SPECIALTY EXAM CONSTITUTIONAL: Well developed, well nourished, appropriately groomed, obese RESPIRATORY: CTAB. no increased work of breathing CARDIOVASCULAR: RRR. no swelling, edema or tenderness in BUE or BLE. All extremities warm. GI: soft, NTTP, nondistended. INTEGUMENTARY: Colostomy on the left abdomen, midline abdominal drain, sacral wound in the gluteal cleft (wound vac), otherwise, Normal, no rash, masses or bruising noted in extremities. MUSCULOSKELETAL: BUE and BLE normal without defect, crepitus, subluxation, effusion, arthritic changes or TTP. BUE 4/5, good ROM, with normal tone. BLE 4/5 good ROM, with normal tone NEURO: CN 2-12 grossly intact. Sensation intact in all extremities. Coordination intact in BUE. Decreased tremor noted in extremities since restarting CPAP. POSTURE and GAIT: Sitting posture good. Balance appears reasonable. Gait reasonable, some minor unsteadiness, close supervision with RW. PSYCH: Alert, Ox3 affect appears normal. Insight appears intact. - Constitutional Vitals: Vital Signs - 12hr 12/18/19 12/18/19 07:30 07:37 Temperature 36.3 C L Pulse Rate 71 Pulse Rate [ 85 Anterior Bilateral Throughout] Respiratory 18 Rate Respiratory 18 Rate [Anterior Bilateral Throughout] Blood Pressure 109/54 O2 Sat by Pulse 98 Oximetry - Allied health notes Allied health notes reviewed: nursing, PT, OT FIMS assessment as documented by PT/OT/ST: Social interaction/Memory/Problem solving Social Interaction FIM Score 6. Mod. [place] (Mostly appropriate. May need meds. No supv.) Memory FIM Score 5. Supervision (Needs cueing <10%, stressful/ unfamiliar situations.) Problem Solving FIM Score 6. Mod. [place] (Mild difficulty or needs more time w/ complex.) Transfers Mode of Locomotion: Wheelchair Bed/Chair/Wheelchair Transfers 5. Supervision (Needs supv. or set-up for FIM Score sliding board, foot rests.) Eating Eating FIM Score 5. Supervision/Set-Up (Needs help w/ containers, cutting meat, etc.) Dressing-Upper body Patient retrieves clothing Yes items: Upper Body Dressing FIM Score 5. Supv./Set-Up ([place] sets out clothes or applies pros./orth.) Dressing-lower body Patient retrieves clothing Yes items: Lower Body Dressing FIM Score 5. Supv./Set-Up ([place] sets out clothes or applies pros./orth.) - Labs CBC & Chem 7: 12/19/19 07:00 12/19/19 07:00 Assessment and Plan Dehiscence of abdominal wound: Continue wound care with drain to intermittent suction. Will discuss with surgery ongoing treatment and eventual discontinua tion of drain at their discretion. Monitor for any increased or decrease in amount of drainage or changes in quality of drainage. Monitor for any further signs of possible wound infection. If the patient does develop further complications due to his complicated course he may need to be transferred back to the acute side of the hospital. Unstageable sacral wound: Continue wound care. Rocephin completed 12/15. Wound vac. COPD:Continue medications. Supplemental O2 as needed. Monitor for s igns/symptoms of exacerbation. Hypertension:Continue medication. Monitor blood pressure. Adjust medications as needed for normotension. Hold for hypotension. Hyperlipidemia: Lipid panel was checked in October. restarted home pravastatin. CAD/LA:Left Ventricle ejection fraction 45 to 50%. KALI: OK to use home CPAP with nasal mask. Improved since starting use. Hypokalemia: Replaced and monitor. Hypomagnesemia: Replaced and monitor Anemia: labs c/w ACD. monitor Protein calorie malnutrition: Will monitor his nutritional status and continue any protein supplements as needed. States that his diet is actually pretty strong currently. Obesity:Patient has lost a significant amount of weight during his roughly 3- month stay in the hospital. We will continue to monitor his weight as well as nutritional status. With his current weight loss he should be able to maintain a healthier weight going forward but will need to rebuild his protein status and strength/loss musculature. ADL dysfunction: OT will work on improving ability to perform ADLs (including assistive devices) to increase independence and decrease caregiver burden and improve functional transfers and mobility training. Difficulty walking: PT will work on gait training and proper use of assistive devices and advance as appropriate to use of stairs and outside ambulation on uneven surfaces. Unsteadiness on feet: PT will work on improving static and dynamic sitting and standing balance as well as proper use of assistive devices to decrease risk of falls. Abnormality of gait: PT will work to improve safety and efficiency of gait through neuromotor training and gait training along with instruction on proper use of assistive devices. Muscle weakness: PT & OT will work on strengthening exercises to improve functional strength including mixture of closed and open kinetic chain exercises. Debility: PT & OT will work on improving overall functional status to improve participation with ADLs, mobility and social involvement. Fatigue: PT & OT will work on improving endurance through aerobic exercises and therapeutic activity while monitoring patients tolerance for activity and vital signs as needed. Tobacco abuse: Patient has been without cigarettes since admission in September. Cessation discussed this admission. DVT ppx:Lovenox Pain: Continue physical modalities in therapy and pain medications as needed to achieve functional pain control. Sleep: Monitor and address as needed. Melatonin Bowel: Monitor and address as needed. Appetite: Monitor and address as needed. Discharge planning: Looking at 12/20. Will need RW, 3in1, Hosp bed/mattress and HH. Will continue discussion with therapy team, SW, patient and family. Restrictions/ Precautions: Falls WB status: FWB Functional Hx: ADLs: Independent Cognition: Independent Mobility: No AD Barriers to Discharge: Decreased mobility and ability to perform self care, balance deficits, weakness Estimated Length of Stay: 1821 days Discharge Destination: Home with family DME: Hospital bed: Patient meets requirements for provision of hospital bed per all guidelines. We will need an adjustable bed with a low air loss specialty mattress due to large sacral pressure wound that is currently being treated with wound VAC. The wound measurements are 5 x 2 x 3.3 cm. Due to the amount of slough it was initially called unstageable however due to the depth it is likely at least stage III if not stage IV. Bed needed to provide for pain relief as well as to prevent worsening of the pressure wound and to allow for proper wound healing. Due to the patient's condition he will be homebound and will qualify for home health PT, OT and nursing. Patient will require rolling walker due to unsteadiness in gait and decreased balance. He is safe to ambulate with the rolling walker and close supervision at this point and will hopefully progress to being O to walk modified independent. He will also need a 3 in 1 in order to safely utilize a shower and to prevent his propensity for falling in a wet environment coupled with his unsteadiness on his feet. Wound VAC paperwork has been filled out and will be ordered to be delivered at discharge. Patient will need to follow-up in outpatient wound clinic for further wound VAC monitoring, management and possible debridements.
[2019-12-18] MEDS: MORPHINE 2 MG/1 ML INJ IV PRN (12:42)
[2019-12-18] MEDS: oxyCODONE ER 10 MG TAB PO SCH ×2 (13:42→21:48)
[2019-12-18] MEDS: oxyCODONE 5 MG TAB PO PRN (17:10)
[2019-12-18] MEDS: GABAPENTIN 300 MG CAP PO SCH (21:47)
[2019-12-18] MEDS: PRAVASTATIN 20 MG TAB PO SCH (21:47)
[2019-12-18] MEDS: MELATONIN 5 MG TAB PO SCH (21:47)
[2019-12-18] MEDS: ENOXAPARIN 40 MG/0.4 ML INJ SUB-Q SCH (21:48)
[2019-12-19] MEDS: METOPROLOL TARTRATE 25 MG TAB PO SCH ×3 (06:10→21:58)
[2019-12-19 07:18] LABS: Hematocrit 24.9 % (35.5-45.6); Hemoglobin 7.8 gm/dl (11.8-15.2); Mean Corpuscular HGB Conc 31 % (32-34); Mean Corpuscular Volume 84 fl (84-94); Platelet Count 430 K/mm3 (140-440); Red Blood Count 2.98 M/mm3 (3.65-5.03); Red Cell Distribution Width 19.5 % (13.2-15.2)
[2019-12-19 07:27] LABS: BUN/Creatinine Ratio 12; Blood Urea Nitrogen 7 mg/dL (9-20); Hemolysis Index 0
[2019-12-19] MEDS: CITALOPRAM 20 MG TAB PO SCH (08:32)
[2019-12-19] MEDS: PANTOPRAZOLE 40 MG TAB PO SCH (08:32)
[2019-12-19] MEDS: ARFORMOTEROL 15 MCG/2 ML NEBU IH SCH ×2 (09:07→21:48)
[2019-12-19] MEDS: IPRATROPIUM/ALBUTEROL SULFATE 3 ML AMPUL.NEB IH SCH ×3 (09:07→21:48)
[2019-12-19] MEDS: BUDESONIDE 0.5 MG/2 ML NEBU IH SCH ×2 (09:08→21:49)
[2019-12-19] MEDS: oxyCODONE 5 MG TAB PO PRN (09:29)
[2019-12-19] MEDS: AMIODARONE 200 MG TAB PO SCH (14:46)
[2019-12-19] MEDS: oxyCODONE ER 10 MG TAB PO SCH ×2 (15:43→22:07)
--- NOTE | 2019-12-19 18:56 | Progress Note ---
Subjective Date of service: 12/19/19 Principal diagnosis: Debility status post perforated bowel Interval history: 54-year-old male who Developed increasing pain after colonoscopy and upon work- up was found to have a perforated bowel. He underwent surgical repair however also had dehiscence of the wound and has required several washouts. His course is complicated and he has been in the hospital since September. He developed acute respiratory failure and required intubation. He developed pneumonia and pleural effusion which has been treated and resolved. He now has an unstageable pressure wound on his sacrum which has been debrided and he is being treated with antibiotics for an infection (wound culture pending). He is debilitated and has a complex medical course which neccesitates his admission to IRU vs SNF. He will likely need ongoing debridement of the sacral wound and will need further management of the abdominal wound drain. Patient is participating in therapy and making reasonable progress. Taking rest breaks as needed. +BM. Denies palpitations, dyspnea, cough, N/V, weakness. Doing better in therapy. Better overall. Abdominal wound: Continue drain per wound care. Further surgical care as needed. Adhesion of drain system slightly problematic, we'll monitor. 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 Completed rocephin. wound vac placed, forms filled out for home vac COPD: Continue nebulizers and monitor for any exacerbation. No cough or shortness of breath currently Hypertension: Continue antihypertensives and monitor for normotension, adjust as needed. Blood pressures fairly stable CAD/VA: Denies chest pain currently. Continue monitor for any signs of chest pain Protein calorie malnutrition: Prealbumin low, encourage intake of quality protein, supplements. Recheck prealbumin tomorrow Debility: Continue therapy to improve ability to ambulate, perform ADLs and improve endurance. Anemia: Labs c/w ACD. Monitor. Stable Pain: Cont meds as ordered. Will need to wean as pain improves. Monitor for improvement. Sleep: melatonin. Has home CPAP here now. Wants to utilize nasal mask. Sl eep much better on CPAP Hypokalemia: Stable. monitor. Hypomagnesemia: Stable. monitor. Will need hosp bed, mattress, RW, 3 in 1 for Discharge. Was planned for discharge on however will need to hold discharge until Tuesday to accommodate all equipment and DME to enable patient to return home safely. All records, vitals, labs and medications were reviewed. No other issues per patient, nursing or therapy. Objective - Exam Narrative Exam: MUSCULOSKELETAL SPECIALTY EXAM CONSTITUTIONAL: Well developed, well nourished, appropriately groomed, obese RESPIRATORY: CTAB. no increased work of breathing CARDIOVASCULAR: RRR. no swelling, edema or tenderness in BUE or BLE. All extremities warm. GI: soft, NTTP, nondistended. INTEGUMENTARY: Colostomy on the left abdomen, midline abdominal drain, sacral wound in the gluteal cleft (wound vac), otherwise, Normal, no rash, masses or bruising noted in extremities. MUSCULOSKELETAL: BUE and BLE normal without defect, crepitus, subluxation, effusion, arthritic changes or TTP. BUE 4/5, good ROM, with normal tone. BLE 4/5 good ROM, with normal tone NEURO: CN 2-12 grossly intact. Sensation intact in all extremities. Coordination intact in BUE. Only mild tremor noted occasionally now. POSTURE and GAIT: Sitting posture good. Balance appears reasonable. Gait reasonable, some minor unsteadiness, close supervision with RW. PSYCH: Alert, Ox3 affect appears normal. Insight appears intact. - Constitutional Vitals: Vital Signs - 12hr 12/19/19 12/19/19 12/19/19 07:00 07:05 08:50 Temperature 36.7 C Pulse Rate 85 Pulse Rate [ 78 Anterior Bilateral Throughout] Respiratory 20 Rate Respiratory 20 Rate [Anterior Bilateral Throughout] Blood Pressure 97/52 O2 Sat by Pulse 86 95 Oximetry 12/19/19 12/19/19 12/19/19 09:29 10:29 12:16 Temperature 36.4 C L Pulse Rate 84 Pulse Rate [ Anterior Bilateral Throughout] Respiratory 18 20 20 Rate Respiratory Rate [Anterior Bilateral Throughout] Blood Pressure 108/53 O2 Sat by Pulse 95 Oximetry 12/19/19 15:41 Temperature 36.7 C Pulse Rate 83 Pulse Rate [ Anterior Bilateral Throughout] Respiratory 20 Rate Respiratory Rate [Anterior Bilateral Throughout] Blood Pressure 118/58 O2 Sat by Pulse 96 Oximetry - Allied health notes Allied health notes reviewed: nursing, PT, OT FIMS assessment as documented by PT/OT/ST: Social interaction/Memory/Problem solving Social Interaction FIM Score 6. Mod. [place] (Mostly appropriate. May need meds. No supv.) Memory FIM Score 5. Supervision (Needs cueing <10%, stressful/ unfamiliar situations.) Problem Solving FIM Score 6. Mod. [place] (Mild difficulty or needs more time w/ complex.) Transfers Mode of Locomotion: Wheelchair Bed/Chair/Wheelchair Transfers 5. Supervision (Needs supv. or set-up for FIM Score sliding board, foot rests.) Eating Eating FIM Score 5. Supervision/Set-Up (Needs help w/ containers, cutting meat, etc.) Dressing-Upper body Patient retrieves clothing Yes items: Upper Body Dressing FIM Score 5. Supv./Set-Up ([place] sets out clothes or applies pros./orth.) Dressing-lower body Patient retrieves clothing Yes items: Lower Body Dressing FIM Score 5. Supv./Set-Up ([place] sets out clothes or applies pros./orth.) - Labs CBC & Chem 7: 12/19/19 07:00 12/19/19 07:00 Labs: Laboratory Results - last 72 hr 12/19/19 12/19/19 07:00 07:00 WBC 8.1 RBC 2.98 L Hgb 7.8 L Hct 24.9 L MCV 84 MCH 26 L MCHC 31 L RDW 19.5 H Plt Count 430 Sodium 142 Potassium 4.1 Chloride 104.1 Carbon Dioxide 26 Anion Gap 16 BUN 7 L Creatinine 0.6 L Estimated GFR > 60 BUN/Creatinine Ratio 12 Glucose 89 Calcium 9.0 Magnesium 2.00 Assessment and Plan Dehiscence of abdominal wound: Continue wound care with drain to intermittent suction. Will discuss with surgery ongoing treatment and eventual discontinuation of drain at their discretion. Monitor for any increased or decrease in amount of drainage or changes in quality of drainage. Monitor for any further signs of possible wound infection. If the patient does develop fu rther complications due to his complicated course he may need to be transferred back to the acute side of the hospital. Unstageable sacral wound: Continue wound care. Rocephin completed 12/15. Wound v ac. COPD:Continue medications. Supplemental O2 as needed. Monitor for signs/symptoms of exacerbation. Hypertension:Continue medication. Monitor blood pressure. Adjust medications as needed for normotension. Hold for hypotension. Hyperlipidemia: Lipid panel was checked in October. restarted home pravastatin. CAD/VA:Left Ventricle ejection fraction 45 to 50%. KALI: OK to use home CPAP with nasal mask. Improved since starting use. Hypokalemia: Replaced and monitor. Hypomagnesemia: Replaced and monitor Anemia: labs c/w ACD. monitor Protein calorie malnutrition: Will monitor his nutritional status and continue any protein supplements as needed. States that his diet is actually pretty strong currently. Obesity:Patient has lost a significant amount of weight during his roughly 3- month stay in the hospital. We will continue to monitor his weight as well as nutritional status. With his current weight loss he should be able to maintain a healthier weight going forward but will need to rebuild his protein status and strength/loss musculature. ADL dysfunction: OT will work on improving ability to perform ADLs (including assistive devices) to increase independence and decrease caregiver burden and improve functional transfers and mobility training. Difficulty walking: PT will work on gait training and proper use of assistive devices and advance as appropriate to use of stairs and outside ambulation on uneven surfaces. Unsteadiness on feet: PT will work on improving static and dynamic sitting and standing balance as well as proper use of assistive devices to decrease risk of falls. Abnormality of gait: PT will work to improve safety and efficiency of gait through neuromotor training and gait training along with instruction on proper use of assistive devices. Muscle weakness: PT & OT will work on strengthening exercises to improve functional strength including mixture of closed and open kinetic chain exercises. Debility: PT & OT will work on improving overall functional status to improve participation with ADLs, mobility and social involvement. Fatigue: PT & OT will work on improving endurance through aerobic exercises and therapeutic activity while monitoring patients tolerance for activity and vital signs as needed. Tobacco abuse: Patient has been without cigarettes since admission in September. Cessation discussed this admission. DVT ppx:Lovenox Pain: Continue physical modalities in therapy and pain medications as needed to achieve functional pain control. Sleep: Monitor and address as needed. Melatonin Bowel: Monitor and address as needed. Appetite: Monitor and address as needed. Discharge planning: Looking at Thursday 12/21 now. Will need RW, 3in1, Hosp bed/mattress and HH. Will continue discussion with therapy team, SW, patient and family. Restrictions/ Precautions: Falls WB status: FWB Functional Hx: ADLs: Independent Cognition: Independent Mobility: No AD Barriers to Discharge: Decreased mobility and ability to perform self care, balance deficits, weakness Estimated Length of Stay: 1821 days Discharge Destination: Home with family DME: Hospital bed: Patient meets requirements for provision of hospital bed per all guidelines. We will need an adjustable bed with a low air loss specialty mattress due to large sacral pressure wound that is currently being treated with wound VAC. The wound measurements are 5 x 2 x 3.3 cm. Due to the amount of slough it was initially called unstageable however due to the depth it is likely at least stage III if not stage IV. Bed needed to provide for pain relief as well as to prevent worsening of the pressure wound and to allow for proper wound healing. Due to the patient's condition he will be homebound and will qualify for home health PT, OT and nursing. Patient will require rolling walker due to unsteadiness in gait and decreased balance. He is safe to ambulate with the rolling walker and close supervision at this point and will hopefully progress to being O to walk modified independent. He will also need a 3 in 1 in order to safely utilize a shower and to prevent his propensity for falling in a wet environment coupled with his unsteadiness on his feet. Wound VAC paperwork has been filled out and will be ordered to be delivered at discharge. Patient will need to follow-up in outpatient wound clinic for furthe r wound VAC monitoring, management and possible debridements.
[2019-12-19] MEDS: MELATONIN 5 MG TAB PO SCH (21:57)
[2019-12-19] MEDS: GABAPENTIN 300 MG CAP PO SCH (21:58)
[2019-12-19] MEDS: PRAVASTATIN 20 MG TAB PO SCH (21:59)
[2019-12-19] MEDS: ENOXAPARIN 40 MG/0.4 ML INJ SUB-Q SCH (21:59)
[2019-12-20] MEDS: oxyCODONE 5 MG TAB PO PRN (04:34)
[2019-12-20] MEDS: METOPROLOL TARTRATE 25 MG TAB PO SCH ×3 (05:54→23:30)
[2019-12-20] MEDS: AMIODARONE 200 MG TAB PO SCH (10:30)
[2019-12-20] MEDS: CITALOPRAM 20 MG TAB PO SCH (10:30)
[2019-12-20] MEDS: PANTOPRAZOLE 40 MG TAB PO SCH (10:31)
[2019-12-20] MEDS: oxyCODONE ER 10 MG TAB PO SCH (11:02)
--- NOTE | 2019-12-20 14:50 | Progress Note ---
Subjective Date of service: 12/20/19 Principal diagnosis: Debility status post perforated bowel Interval history: 54-year-old male who Developed increasing pain after colonoscopy and upon work- up was found to have a perforated bowel. He underwent surgical repair however also had dehiscence of the wound and has required several washouts. His course is complicated and he has been in the hospital since September. He developed acute respiratory failure and required intubation. He developed pneumonia and pleural effusion which has been treated and resolved. He now has an unstageable pressure wound on his sacrum which has been debrided and he is being treated with antibiotics for an infection (wound culture pending). He is debilitated and has a complex medical course which neccesitates his admission to IRU vs SNF. He will likely need ongoing debridement of the sacral wound and will need further management of the abdominal wound drain. Patient is participating in therapy and making reasonable progress. Taking rest breaks as needed. +BM. Denies palpitations, dyspnea, cough, N/V, weakness. Doing better in therapy. Better overall. Abdominal wound: Continue drain per wound care. Further surgical care as needed. Adhesion of drain system slightly problematic, we'll monitor. 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 Completed rocephin. wound vac placed, forms filled out for home vac COPD: Continue nebulizers and monitor for any exacerbation. No cough or shortness of breath currently Hypertension: Continue antihypertensives and monitor for normotension, adjust as needed. Blood pressures fairly stable CAD/NV: Denies chest pain currently. Continue monitor for any signs of chest pain Protein calorie malnutrition: Prealbumin low, encourage intake of quality protein, supplements. Recheck prealbumin tomorrow Debility: Continue therapy to improve ability to ambulate, perform ADLs and improve endurance. Anemia: Labs c/w ACD. Monitor. Stable Pain: Cont meds as ordered. Will need to wean as pain improves. Monitor for improvement. Sleep: melatonin. Has home CPAP with nasal mask. Sleep much better on CPAP Hypokalemia: Stable. monitor. Hypomagnesemia: Stable. monitor. Will need hosp bed, mattress, bedside suction, RW, 3 in 1 for Discharge. Was planned for discharge on however will need to hold discharge until Tuesday to accommodate all equipment and DME to enable patient to return home safely. Patient discussed in team conference. Making good progress and on track to go home on Tuesday after wound VAC change. He is ambulating in the hallway with a rolling walker modified independent. He is doing well with ADLs and his much improved with his balance. He'll be clear to go home on Tuesday with the equipment that we have ordered. Patient will follow-up for outpatient therapy as well as wound care per wound VAC changes in house. All records, vitals, labs and medications were reviewed. No other issues per patient, nursing or therapy. Objective - Exam Narrative Exam: MUSCULOSKELETAL SPECIALTY EXAM CONSTITUTIONAL: Well developed, well nourished, appropriately groomed, obese RESPIRATORY: CTAB. no increased work of breathing CARDIOVASCULAR: RRR. no swelling, edema or tenderness in BUE or BLE. All extremities warm. GI: soft, NTTP, nondistended. INTEGUMENTARY: Colostomy on the left abdomen, midline abdominal drain, sacral wound in the gluteal cleft (wound vac), otherwise, Normal, no rash, masses or bruising noted in extremities. MUSCULOSKELETAL: BUE and BLE normal without defect, crepitus, subluxation, effusion, arthritic changes or TTP. BUE 4/5, good ROM, with normal tone. BLE 4/5 good ROM, with normal tone NEURO: CN 2-12 grossly intact. Sensation intact in all extremities. Coordination intact in BUE. Only mild tremor noted occasionally now. POSTURE and GAIT: Sitting posture good. Balance appears reasonable. Gait reasonable, some minor unsteadiness, supervision with RW. PSYCH: Alert, Ox3 affect appears normal. Insight appears intact. - Constitutional Vitals: Vital Signs - 12hr 12/20/19 12/20/19 12/20/19 04:34 05:53 05:54 Temperature 36.7 C Pulse Rate 77 77 Respiratory 17 16 Rate Blood Pressure 112/61 Blood Pressure 112/61 [Left] O2 Sat by Pulse 94 Oximetry 12/20/19 07:24 Temperature 36.3 C L Pulse Rate 72 Respiratory 20 Rate Blood Pressure 111/60 Blood Pressure [Left] O2 Sat by Pulse 96 Oximetry - Allied health notes Allied health notes reviewed: nursing, PT, OT FIMS assessment as documented by PT/OT/ST: Social interaction/Memory/Problem solving Social Interaction FIM Score 6. Mod. [place] (Mostly appropriate. May need meds. No supv.) Memory FIM Score 5. Supervision (Needs cueing <10%, stressful/ unfamiliar situations.) Problem Solving FIM Score 6. Mod. [place] (Mild difficulty or needs more time w/ complex.) Transfers Mode of Locomotion: Wheelchair Bed/Chair/Wheelchair Transfers 5. Supervision (Needs supv. or set-up for FIM Score sliding board, foot rests.) Eating Eating FIM Score 5. Supervision/Set-Up (Needs help w/ conta iners, cutting meat, etc.) Dressing-Upper body Patient retrieves clothing Yes items: Upper Body Dressing FIM Score 5. Supv./Set-Up ([place] sets out clothes or applies pros./orth.) Dressing-lower body Patient retrieves clothing Yes items: Lower Body Dressing FIM Score 5. Supv./Set-Up ([place] sets out clothes or applies pros./orth.) - Labs CBC & Chem 7: 12/19/19 07:00 12/19/19 07:00 Labs: Laboratory Results - last 72 hr 12/19/19 12/19/19 07:00 07:00 WBC 8.1 RBC 2.98 L Hgb 7.8 L Hct 24.9 L MCV 84 MCH 26 L MCHC 31 L RDW 19.5 H Plt Count 430 Sodium 142 Potassium 4.1 Chloride 104.1 Carbon Dioxide 26 Anion Gap 16 BUN 7 L Creatinine 0.6 L Estimated GFR > 60 BUN/Creatinine Ratio 12 Glucose 89 Calcium 9.0 Magnesium 2.00 Assessment and Plan Dehiscence of abdominal wound: Continue wound care with drain to intermittent suction. Will discuss with surgery ongoing treatment and eventual discontinuation of drain at their discretion. Monitor for any increased or decrease in amount of drainage or changes in quality of drainage. Monitor for any further signs of possible wound infection. If the patient does develop further complications due to his complicated course he may need to be transferred back to the acute side of the hospital. Unstageable sacral wound: Continue wound care. Rocephin completed 12/15. Wound vac. COPD:Continue medications. Supplemental O2 as needed. Monitor for signs/symptoms of exacerbation. Hypertension:Continue medication. Monitor blood pressure. Adjust medications as needed for normotension. Hold for hypotension. Hyperlipidemia: Lipid panel was checked in October. restarted home pravastatin. CAD/NV:Left Ventricle ejection fraction 45 to 50%. KALI: OK to use home CPAP with nasal mask. Improved since starting use. Hypokalemia: Replaced and monitor. Hypomagnesemia: Replaced and monitor Anemia: labs c/w ACD. monitor Protein calorie malnutrition: Will monitor his nutritional status and continue any protein supplements as needed. States that his diet is actually pretty strong currently. Obesity:Patient has lost a significant amount of weight during his roughly 3- month stay in the hospital. We will continue to monitor his weight as well as nutritional status. With his current weight loss he should be able to maintain a healthier weight going forward but will need to rebuild his protein status and strength/loss musculature. ADL dysfunction: OT will work on improving ability to perform ADLs (including as sistive devices) to increase independence and decrease caregiver burden and improve functional transfers and mobility training. Difficulty walking: PT will work on gait training and proper use of assistive devices and advance as appropriate to use of stairs and outside ambulation on uneven surfaces. Unsteadiness on feet: PT will work on improving static and dynamic sitting and standing balance as well as proper use of assistive devices to decrease risk of falls. Abnormality of gait: PT will work to improve safety and efficiency of gait through neuromotor training and gait training along with instruction on proper use of assistive devices. Muscle weakness: PT & OT will work on strengthening exercises to improve functional strength including mixture of closed and open kinetic chain exerc ises. Debility: PT & OT will work on improving overall functional status to improve participation with ADLs, mobility and social involvement. Fatigue: PT & OT will work on improving endurance through aerobic exercises and therapeutic activity while monitoring patients tolerance for activity and vital signs as needed. Tobacco abuse: Patient has been without cigarettes since admission in September. Cessation discussed this admission. DVT ppx:Lovenox Pain: Continue physical modalities in therapy and pain medications as needed to achieve functional pain control. Sleep: Monitor and address as needed. Melatonin Bowel: Monitor and address as needed. Appetite: Monitor and address as needed. Discharge planning: Looking at Thursday 12/21 now. Will need RW, 3in1, Hosp bed/mattress and HH. Will continue discussion with therapy team, SW, patient and family. Restrictions/ Precautions: Falls WB status: FWB Functional Hx: ADLs: Independent Cognition: Independent Mobility: No AD Barriers to Discharge: Decreased mobility and ability to perform self care, balance deficits, weakness Estimated Length of Stay: 1821 days Discharge Destination: Home with family DME: Hospital bed: Patient meets requirements for provision of hospital bed per all guidelines. We will need an adjustable bed with a low air loss specialty mattress due to large sacral pressure wound that is currently being treated with wound VAC. The wound measurements are 5 x 2 x 3.3 cm. Due to the amount of slough it was initially called unstageable however due to the depth it is likely at least stage III if not stage IV. Bed needed to provide for pain relief as well as to prevent worsening of the pressure wound and to allow for proper wound healing. Patient will require rolling walker due to unsteadiness in gait and decreased balance. He is safe to ambulate with the rolling walker and has progressed to being able to walk modified independent. He will also need a 3 in 1 in order to safely utilize a shower and to prevent his propensity for falling in a wet environment coupled with his unsteadiness on his feet. Wound VAC paperwork has been filled out and will be ordered to be delivered at discharge. Patient will need to follow-up in outpatient wound clinic for further wound VAC monitoring, management and possible debridements. Also needs bedside suction and canister for ventral wound.
[2019-12-20] MEDS: ARFORMOTEROL 15 MCG/2 ML NEBU IH SCH ×2 (15:54→20:22)
[2019-12-20] MEDS: BUDESONIDE 0.5 MG/2 ML NEBU IH SCH ×2 (15:54→20:21)
[2019-12-20] MEDS: IPRATROPIUM/ALBUTEROL SULFATE 3 ML AMPUL.NEB IH SCH ×3 (15:54→20:21)
[2019-12-20] MEDS: GABAPENTIN 300 MG CAP PO SCH (23:30)
[2019-12-20] MEDS: ENOXAPARIN 40 MG/0.4 ML INJ SUB-Q SCH (23:30)
[2019-12-20] MEDS: PRAVASTATIN 20 MG TAB PO SCH (23:30)
[2019-12-20] MEDS: MELATONIN 5 MG TAB PO SCH (23:31)
[2019-12-21] MEDS: METOPROLOL TARTRATE 25 MG TAB PO SCH (05:58)
[2019-12-21] MEDS: oxyCODONE ER 10 MG TAB PO SCH ×2 (07:19→10:41)
[2019-12-21 07:51] LABS: Hematocrit 27.9 % (35.5-45.6); Mean Corpuscular HGB Conc 32 % (32-34); Mean Corpuscular Volume 84 fl (84-94); Platelet Count 460 K/mm3 (140-440); Red Blood Count 3.32 M/mm3 (3.65-5.03)
[2019-12-21 08:42] VITALS: BP 101/52
[2019-12-21] MEDS: MORPHINE 2 MG/1 ML INJ IV PRN (09:49)
[2019-12-21] MEDS: CITALOPRAM 20 MG TAB PO SCH (10:41)
[2019-12-21] MEDS: AMIODARONE 200 MG TAB PO SCH (10:41)
[2019-12-21] MEDS: PANTOPRAZOLE 40 MG TAB PO SCH (10:41)
--- NOTE | 2019-12-21 11:30 | Discharge Summary ---
Providers - Providers Date of Admission: 12/05/19 23:59 Date of discharge: 12/21/19 Attending physician: REBEKAH GARCIA III, MD 12/05/19 17:49 Consult to Wound/ET Nurse [CONS] Routine Reason For Exam: wound eval Occupational Therapy Evaluate and Treat [CONS] Routine Comment: Reason For Exam: ADL dysfunction Physical Therapy Evaluation and Treat [CONS] Routine Comment: Reason For Exam: Mobility Dysfunction 12/05/19 17:54 Consult to Case Management [CONS] Routine Services Needed at Discharge: Home Health Services Notified:: cm notified 12/06/19 12:55 Consult to Physician [CONS] Routine Comment: Consulting Provider: VIDAL NUNN Physician Instructions: Reason For Exam: Antibiotic optimization - sacral wound- klebsiella Primary care physician: SUPERVISING FLOORPERSON Hospitalization Reason for admission: Debility status post perforated bowel Condition: Good Hospital course: 54-year-old male who Developed increasing pain after colonoscopy and upon work- up was found to have a perforated bowel. He underwent surgical repair however also had dehiscence of the wound and has required several washouts. His course is complicated and he has been in the hospital since September. He developed acute respiratory failure and required intubation. He developed pneumonia and pleural effusion which has been treated and resolved. He now has an unstageable pressure wound on his sacrum which has been debrided and he is being treated with antibiotics for an infection (wound culture pending). He is debilitated and has a complex medical course which neccesitates his admission to IRU vs SNF. He will likely need ongoing debridement of the sacral wound and will need further management of the abdominal wound drain. Patient participated in therapy and made good progress. At the time of discharge he was modified independent for wheelchair mobility, had good balance with use of the rolling walker, supervision for dressing, independent for bed mobility, and was able to ambulate with a rolling walker and modified independent for proximally 350 feet. Abdominal wound: He will follow-up with wound care and surgeon on Tuesdays and Fridays. Continue drain per wound care. Further surgical care as needed. Adhesion of drain system slightly problematic, family has been trained on how to re-adhere drains as needed. Follow-up appointment will be scheduled with Dr. Gillis in the future. 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 Completed rocephin. wound vac placed, continue wound VAC at home and further changes will be made with wound care on his follow-up appointments. COPD: Continue nebulizers. No cough or shortness of breath currently CAD/SD:Left Ventricle ejection fraction 45 to 50%. Hypertension: Blood pressure is been fairly well controlled on home antihypertensives. CAD/SD: Denies chest pain currently. Continue monitor for any signs of chest pain Protein calorie malnutrition: Prealbumin low but has improved since previous check, encourage intake of quality protein, supplements. Value on date of discharge is 0.132 Anemia: Labs c/w ACD. Improving, hemoglobin at discharge is 9.0. Continue to monitor with PCP. Pain: Patient has only taken 1 dose of Roxicodone the last week but has been getting OxyContin every 12 hours. We discussed weaning medication and based on what I see in the MAR I will recommend sending him home on just Roxicodone without the OxyContin. We'll need a follow-up with PCP for further pain med ications. Sleep: Continue melatonin, has been sleeping well with this along with CPAP. Affect sleep apnea: Continue CPAP Hypokalemia: Stable. Last value on 12/19/19 was 4.1 Hypomagnesemia: Stable. Last value on 12/19/19 was 2.0 Disposition: DC-01 TO HOME OR SELFCARE Time spent for discharge: >40 mins Core Measure Documentation - Palliative Care Palliative Care/ Comfort Measures: Not Applicable - Core Measures Any of the following diagnoses?: history only Exam - Physical Exam Narrative exam: MUSCULOSKELETAL SPECIALTY EXAM CONSTITUTIONAL: Well developed, well nourished, appropriately groomed, obese RESPIRATORY: CTAB. no increased work of breathing CARDIOVASCULAR: RRR. no swelling, edema or tenderness in BUE or BLE. All extremities warm. GI: soft, NTTP, nondistended. INTEGUMENTARY: Colostomy on the left abdomen, midline abdominal drain, sacral wound in the gluteal cleft (wound vac), otherwise, Normal, no rash, masses or bruising noted in extremities. MUSCULOSKELETAL: BUE and BLE normal without defect, crepitus, subluxation, effusion, arthritic changes or TTP. BUE 4/5, good ROM, with normal tone. BLE 4/5 good ROM, with normal tone NEURO: CN 2-12 grossly intact. Sensation intact in all extremities. Coordination intact in BUE. Only mild tremor noted occasionally now. POSTURE and GAIT: Sitting posture good. Balance appears reasonable. Gait reasonable, some minor unsteadiness, supervision with RW. PSYCH: Alert, Ox3 affect appears normal. Insight appears intact. - Constitutional Vitals: Temp Pulse Resp BP Pulse Ox 36.6 C 77 18 101/52 94 12/21/19 07:46 12/21/19 07:46 12/21/19 07:46 12/21/19 07:46 12/21/19 07:46 Plan Activity: advance as tolerated, fall precautions Diet: regular Wound: per wound nurse instructions (wound VAC will need to be checked in wound clinic on Tuesdays and Fridays going forward. Wound nurse to direct care along with surgeon.), drain care as instructed (continue drain care as indicated by wound nurse and surgeon. Follow up with Dr. Gillis) Special Instructions: record daily BP diary, smoking cessation (continue smoking cessation, reminded him to ask for assistance if needed earlier in his stay) Durable Medical Equipment Needed Upon Discharge: Walker-Rolling, Hospital Bed, other (3in1) Plan of Treatment: Follow-up with PCP for further monitoring of labs including CBC, magnesium, BMP, pre-albumin. Follow-up with wound care on Tuesdays and Fridays for further treatment of wounds including wound VAC and abdominal wound. Follow-up with outpatient therapy on Tuesdays and Fridays prior to wound care for further therapy. Follow up with: PRIMARY MD JASON [Primary Care Provider] - 7 Days ANKITA GAO MD [Staff Physician] - 7 Days JOSELYN BURKS MD [Staff Physician] - 7 Days Prescriptions: Gabapentin 300 mg PO QHS #30 capsule Melatonin [Melatonin 5MG TAB] 5 mg PO QHS #30 tablet Pravastatin [Pravachol] 20 mg PO QHS #30 tablet Amiodarone [Cordarone 200 MG TAB] 200 mg PO QDAY #30 tablet Metoprolol [Lopressor TAB] 12.5 mg PO Q8HR #45 tablet Pantoprazole [Protonix TAB] 40 mg PO QDAY #30 tablet oxyCODONE [roxiCODONE] 5 mg PO Q8HR PRN #60 tablet PRN Reason: Pain, Moderate (4-6)
[2019-12-21] MEDS: IPRATROPIUM/ALBUTEROL SULFATE 3 ML AMPUL.NEB IH SCH (15:57)
[2019-12-21] MEDS: BUDESONIDE 0.5 MG/2 ML NEBU IH SCH (15:57)
[2019-12-21] MEDS: ARFORMOTEROL 15 MCG/2 ML NEBU IH SCH (15:57)
== END 2019-12-21 14:45 | disposition home or self-care (01) | DRG 948 ==
LOC: UNDOADMIN 17:10 → 3A 17:10 → 3B 23:59
PROVIDERS: ADMIT Physical Medicine & Rehabilitation; ATTEND Physical Medicine & Rehabilitation
DX: R53.81 Other malaise (principal); T81.32XA Disruption of internal operation (surgical) wound, not elsewhere classified, initial encounter; E46 Unspecified protein-calorie malnutrition; Z68.1 Body mass index [BMI] 19.9 or less, adult; Y83.8 Other surgical procedures as the cause of abnormal reaction of the patient, or of later complication, without mention of misadventure at the time of the procedure; I25.10 Atherosclerotic heart disease of native coronary artery without angina pectoris; E78.5 Hyperlipidemia, unspecified; I10 Essential (primary) hypertension; E66.9 Obesity, unspecified; F17.200 Nicotine dependence, unspecified, uncomplicated; L89.150 Pressure ulcer of sacral region, unstageable; J44.9 Chronic obstructive pulmonary disease, unspecified; Y92.89 Other specified places as the place of occurrence of the external cause; I25.2 Old myocardial infarction; Z98.61 Coronary angioplasty status; Z88.2 Allergy status to sulfonamides; Z79.899 Other long term (current) drug therapy; Z68.30 Body mass index [BMI] 30.0-30.9, adult
CPT/HCPCS: 36415; 80048; 80053; 82607; 82728; 82747; 83550; 83735; 84132; 84134; 85025; 85027; 94640; G0378; A4421; A9270-GY; J0696; J1650; J2270; J2997; J3475; J3480; J7040

== ENCOUNTER 2019-12-25 11:11 | Outpatient (CLI) | payer BC ==
--- NOTE | 2019-10-16 21:09 | Operative Report ---
PREOPERATIVE DIAGNOSES: 1. Colon perforation. 2. Fascial dehiscence. 3. Intraabdominal infection. POSTOPERATIVE DIAGNOSES: 1. Colon perforation. 2. Fascial dehiscence. 3. Intraabdominal infection. PROCEDURES: 1. Abdominal washout. 2. Partial omentectomy. 3. Partial colectomy. 4. Colostomy creation. 5. ABThera placement. ATTENDING PHYSICIAN: Matias Krause MD UNDER SHERIFF: Dr. Frias. ANESTHESIA: General. ESTIMATED BLOOD LOSS: Approximately 100 mL. FLUIDS: 1500 mL. URINE OUTPUT: 150 mL. FINDINGS: The patient had some contamination still present. There is small amount of continued leak from the old anastomotic site that was suture closed during the last operation. Bowel was all viable. Some omental ischemia was noted in the middle of the case. SPECIMENS: Portion of omentum and portion of colon. DRAINS: A 19 Libyan ES drain and ABThera. COMPLICATIONS: None. DISPOSITION: Stable, transferred to ICU. INDICATIONS: This is a 54-year-old male who initially suffered a colon perforation during colonoscopy. He has undergone multiple operations due to complications related to that. The patient now returns on a scheduled basis for abdominal washout and the above listed procedures. The procedure, risks, benefits were explained to . Risks include but were not limited to infection, bleeding, pain, injury to surrounding structures, possible need for further procedures in the future. understood and consented. OPERATIVE NOTE: The patient was brought down to the operating room and placed on the table in supine position. After adequate general anesthesia was established, the patient was prepped and draped in usual sterile fashion. SCDs were placed. The patient was already on antibiotics. Timeout was called. ABThera was removed. We gently elevated the abdominal wall and the small bowel from the surrounding contents. As expected some adhesions formed, we found some additional contaminated fluid, especially in the pelvic region. This was all irrigated and suctioned out. We noticed a small amount of leak from the old anastomotic site that we attempted to control with a suture closure. We initially tried to mobilize the sigmoid colon to staple off the anastomotic connection that was leaking; however, we had difficulty doing this. We decided to turn our attention towards the ostomy creation. We mobilized the transverse colon that we have previously stapled off in the last case. We from the omentum and mobilized it. We mobilized the mesentery all the way to approximately 2 cm to the left of the middle colic vessels. They were left intact. We were close to the duodenum. We identified very clearly. We did not injure in any way. We are trying to mobilize the mesentery as much as possible to minimize any tension on the eventual colostomy that was planned to be created. We took down a portion of the hepatic flexure, not all of it. We did mobilize the colon fairly well such that it appeared as though we would easily have 4-5 cm above the skin level should we pull the entire thing through. Our plan was to have some extra length in the abdomen to allow for the abdominal wall to descend inferiorly when the patient standing due to his large abdomen. We then did some further cleaning and returned our attention back to the sigmoid colon. Part of our challenge was his morbid obesity. The colon was deep into the abdomen. Second challenges that we had a lot of inflammatory reaction such that the mesentery and surrounding fat were all adhesed together and very thick. We ultimately were able to get some mobilization; however, I think part of that dissection went into the mesentery; however, we did not encounter any large named vessels and it did not appear as though the bowel was ischemic at any point. Once we felt we mobilized it sufficiently, we then tried to staple across the bowel just distal to where the anastomosis was. This proved to be challenging as the bowel swollen and slightly distended. We required 2 fires of the contour colon stapler using a green load. We ended firing once almost completely across and then we had to come at an oblique angle to get to the rest of it. It appeared where the staple lines met, there was a small gap there that we oversewed. There were 2 small areas that we ended up oversewing and then we oversewed the epiploic appendages over that area to reinforce it. We had a large amount of omentum that easily draped over that area, which was our plan at the end of the case. I brought out a 19-Libyan drain that we laid along the left side of the sigmoid colon. I passed it down into the pelvis. We washed out that area and then covered it with omentum. For the time being. We then proceeded to create the colostomy. We ended up putting it on the left side of the abdomen. This was transverse colon that we are bringing up. We created the colostomy channel at a slightly oblique angle such that the path of the colostomy through the abdominal wall was heading in a cephalad direction. Again, my thought being that when the patient is upright, the abdomen will be pulled down by the weight, which would then in a sense straighten out the colostomy. I was afraid if we went straight through the abdominal wall. When he stood up, he would actually be pulled down and then can get kinked off. Approximately 3 cm diameter amount of skin was excised. We dissected through the fat at an oblique angle, made a cruciate incision in the fascia and then into the peritoneal cavity. We created the opening such that 3 fingers could easily be administered. With a little bit of manipulation, we were able to bring the bowel up through the opening. We did excise some of the extra appendages to allow the colon to pass a little bit easier. We made sure it was not twisted. Both Dr. Frias and I confirmed that the orientation was correct. With a little bit of manipulation, we were able to get it through. We then from the abdominal side attached the colon to the anterior peritoneal layer with interrupted 3-0 Vicryl sutures, taking seromuscular bites of the bowel. It appeared to lay very nicely. There was no tension on the colon itself. There was no evidence of any pulling. It appeared to lay very easily. Please note where the sigmoid colon stapled off, I placed a 2-0 Prolene suture anteriorly and posteriorly in relation to the staple line to help identify easier in the future. Once we had the colostomy in place, we then thoroughly irrigated out the abdomen. Irrigant was coming back clear. We irrigated all 4 quadrants very thoroughly. We then laid the remainder of the omentum over the bowel. ABThera was placed, taking care to create openings for the drain and for the colostomy. The ABThera dressing was placed. The blue sponge was placed and then we placed #1 Prolene sutures in the fascia to provide some tension to minimize the risk of retracting. We covered this area with a towel and proceeded to mature the ostomy. We initially wanted to attach the bowel to the fascia; however, due to the very thick swollen abdominal wall, it was very difficult to get down to that level, so we attached the bowel to the subcutaneous tissues in the deep layer. We then matured the ostomy taking a bite of skin, seromuscular layer and then the mucosal layer. We created a very nice galena. The distal end was slightly bluish and that had some venous congestion. It did not appear ischemic. However, we checked inside and the mucosa was nice and pink. We went around the [place] in place multiple stitches in total, we placed about 10 stitches. Again, we had a very nice galena. There was no bleeding and the ostomy was viable. We covered that up. When turned our attention back to the midline incision, we placed the second blue foam and the adhesive dressings. We were able to establish a good seal and then we cleaned and dried the skin. Ostomy appliance was placed. The patient tolerated the procedure well. There were no complications. All counts were correct at the end of the case. I spoke with the and the family at the end of the case, they were appreciative. JOB# [id number] SARATH/LEO SANCHEZ
--- NOTE | 2019-10-19 20:16 | Operative Report ---
PREOPERATIVE DIAGNOSES: 1. Colonic perforation. 2. Abdominal fascial dehiscence. 3. Intraabdominal infection. POSTOPERATIVE DIAGNOSES: 1. Colonic perforation. 2. Abdominal fascial dehiscence. 3. Intraabdominal infection. PROCEDURES: 1. Abdominal washout. 2. Gastrojejunostomy feeding tube placement. 3. Closure of sigmoid stump. 4. ABThera placement. ATTENDING PHYSICIAN: Matias Krause MD. PHARMACY TEACHER: Dr. Frias. ANESTHESIA: General. ESTIMATED BLOOD LOSS: Minimal, less than 20 mL. FLUIDS: 900 mL. FINDINGS: Small leak from the medial aspect of the staple line of the sigmoid stump, contamination restricted to the left lower quadrant, rest of the abdomen was completely clean. IMPLANT: A 22-Latvian gastrojejunostomy tube position confirmed with fluoroscopy. Additional drains. He has two ES drains, one on either side in the lower quadrants and ABThera drain. COMPLICATIONS: None. DISPOSITION: Stable, transferred to Recovery Room. INDICATIONS: This is a 54-year-old male who has had an extensive hospital course with multiple operations after suffering a colonic perforation after colonoscopy, the patient scheduled for a plan, take back today for abdominal washout and possible closure; however, prior to surgery, he was noted to have some contamination of the drains suggestive of leak from the stump site. Procedure, risks, benefits were explained to . Risks include but were not limited to infection, bleeding, pain, injury to surrounding structures, possible need for further procedures in the future. understood and consented. OPERATIVE NOTE: The patient was brought to the operating room and placed on the table in supine position. After adequate general anesthesia was established, the patient was prepped and draped in the usual sterile fashion. ABThera top sponge was removed. SCDs were in place. The patient was already on antibiotics. Timeout was called. We then proceeded to remove the rest of the ABThera. As expected, there was contamination that was restricted to the left lower quadrant. We thoroughly cleaned this out. The rest of the abdomen was completely clean. After we had checked the right flank area and made sure there was nothing there, I went ahead and placed a ES drain there just as a precaution because previously he had had contamination spread up to the right side. I thought this could be another indicator for us if there was some delayed leak. We checked the stomach area out as well that was completely clean. Therefore, we did have plans to proceed with feeding tube placement. I figured it would best to get control of the stump leak side before we did that drain; therefore, we carefully mobilized the omentum. We found a 1-cm staple line disruption on the medial aspect of the sigmoid colon. The rest of it was completely intact as we continued to have issues with staple line falling apart. Rather than continue to just put suture after suture, I thought it may be worthwhile to try an omental patch. We created a small lip of omentum that we could insert through the opening and secured it to the closure of that defect with 3-0 silk sutures. Two of them were placed that plugged up the hole and closed it. We attached a tongue of omentum to the entire staple line and secured it with interrupted 3-0 silk sutures to cover that entire space hoping that might help seal it similar to a peptic ulcer disease control with a [place] patch. We had thoroughly irrigated out this area. The bowel was viable. I did not see any ischemia or anything else that might be compromising, I think part of our problem was that the rectum-sigmoid area was fairly full of stool. One of things we had done before surgery was to give him a suppository as I was thinking about what could be contributing to our recurrent leaks. The pressure that was in that area may be contributing; therefore we gave him a suppository. Prior to the start of the case, he had a large bowel movement. The colon did seem markedly decompressed compared to what we had seen previously. So, hopefully this will aid in keeping this area sealed I placed a lap sponge there before tying everything down just to see if there is any leak while we worked on the gastrojejunostomy tube. A spot was picked on the stomach. This area was fairly easy to get to. We did not have significant adhesions there. A 2-0 Prolene pursestring suture was placed. A small gastrotomy was made. Catheter was inserted after being passed through the abdominal wall and with fluoroscopic guidance and multiple attempts we were able to get it to go into the seal loop of the duodenum. We then inflated the balloon and with 2 additional 2-0 Prolene sutures secured the stomach to the anterior abdominal wall. The collar was at approximately 5 cm at the skin level. We then turned our attention back to the left lower quadrant. It appeared as though we had pretty good control at this point. In the past, we would have continued leaking. This seemed to be working. The tongue of omentum was still in the hole and tied down. We tied down the rest of the sutures. It appeared to have a good seal against the bowel, so for future reference a portion of the omentum that is coming to the left of the colostomy is now sutured down on to the sigmoid stump. The portion going to the right of the colostomy is sitting over the small bowel. I placed it in such a way such that we should not have to disrupt in the future to minimize risk of fistula formation. The left side of the omental flap sits on top of the right side, coming around the colostomy. We thoroughly irrigated out the abdomen. Everything was coming back clear. I flushed out the left lower quadrant ES so that in case there was contamination, later we would be able to tell, at the end of the case both drains were serosanguineous. ABThera was replaced. I took care to not put the ABThera flap all the way to the left lower portion hoping that maybe the omentum would seal that area very well, so in case there was a small leak, it would be contained and it would drain out the ES and eventually closed down. We had a good seal. There were no complications. All counts were correct at the end of the case. I had a long conversation with the again. Understandably, she was disappointed with continued leaks. Our plan at this point is to return latest on Tuesday for another washout and possible closure. If everything looks very good on Tuesday in 2 days, then I will take him back sooner for possible closure. JOB# [id number] SARATH/LEO
--- NOTE | 2019-10-22 23:17 | Operative Report ---
PREOPERATIVE DIAGNOSIS: Intra-abdominal infection. POSTOPERATIVE DIAGNOSIS: Intra-abdominal infection. PROCEDURES: 1. Abdominal washout. 2. Closure of abdominal fascia. 3. Wound VAC placement. ATTENDING PHYSICIAN: Matias Krause MD ANESTHESIA: General. ESTIMATED BLOOD LOSS: Less than 20 mL. FLUIDS: 100 mL of crystalloid. URINE OUTPUT: 200 mL. ROLLER REPAIRER: Dr. Frias. FINDINGS: Contamination from the sigmoid stump. DRAINS: Two abdominal some drains. SPECIMEN: None. COMPLICATIONS: None. DISPOSITION: Stable, transferred to Recovery Room. INDICATIONS: This is a 54-year-old male who originally suffered a colonic perforation from a colonoscopy and subsequently required multiple abdominal operations. He is being brought back on a scheduled basis for abdominal washout and possible closure. Procedure, risks, benefits were explained to . Risks include but were not limited to infection, bleeding, pain, injury to surrounding structures, possible need for further procedures in the future. understood and consented. OPERATIVE NOTE: The patient brought to the operating room and placed on the table in supine position. After adequate general anesthesia was established, the patient was prepped and draped in usual sterile fashion. I removed the top layer of the ABThera system. Time-out was called. SCDs were in place. Antibiotics were already been given from the ICU. We began by cutting the fascial sutures that we had placed previously. The rest of the ABThera was removed. There was contamination that primarily was restricted to the left lower quadrant. The rest of the abdomen was fairly clean. We cleaned out the rest of the abdomen and then focused our attention to the left lower quadrant. We gently elevated the flap of omentum that we had placed there. There was free flow from the sigmoid stump. We have tried multiple times to try to close this from primary suturing to stapling to plugging with omentum. I tried to mobilize the sigmoid limb; however, it was well adhered to the retroperitoneum and sidewall. I did not feel I could safely do it and I was concerned that further dissection at this point will then potentially traumatized the small bowel that was starting to adhered down next to it. We took care to make sure we did not put excess tension on the colostomy that was just superior to where we were working. I mobilized as much as I could of the sigmoid colon. Dr. Frias and I took very close look at this area. It appeared to be the same area that we have dealt within the past that it just is unable to stay closed up until now. We had recently tried to clean out the sigmoid colon to relieve the pressure from residual stool from prior to all these operations. It did seem as though we had much less that was still some in the sigmoid colon, but not nearly as much as we had before. We thoroughly washed out the area and examined it. We identified the entire opening and then decided that we would take very large bites with 2-0 silk sutures in a running fashion and try to close this defect again. This time, we would try taking much large bites of tissue. Thereafter, plan was to leave some drain on the left side in the end of the vicinity of the repair and then another one from the right that comes across to the left to try to catch anything that collected in the pelvis. We closed the defect with a running stitch and then packed it with gauze to see if anything would leak. We then washed out the rest of the abdomen again and returned our attention to the left lower quadrant. We saw nothing leaking out. We placed another dry sponge in that area and then we waited 5 minutes. We did not see anything leaking out. We compressed the sigmoid colon to see if we can force anything out of the repair or if there were some other holes that we missed. We saw no evidence of any contamination. Thereafter, the previously placed ES drains, were changed out. The one on the was left was placed right over the repair area and aimed in a superomedial direction to hopefully catch a majority anything that would leak out. The one from the right side was then brought down towards the pelvis and then looped up to the left lower quadrant to try to catch anything that may go down the left gutter into the pelvis. I then took that previous flap of omentum that we had brought behind the colostomy and I placed it in between the side of the sump drain and the adjacent small bowel. I was worried the drain lying against the small bowel would potentially injure it and lead to a fistula. I wanted to have some tissue in between the two. The omentum appeared to lay very well. This also covered the area of the repair that we had just done so underneath the omentum would be the sump drain and the repair. Hopefully, the omentum would also adhere to the sidewall and contain any leak that may develop later. At this point, we irrigated out the top of the cavity one last time and then I closed the fascia as we had had a previous dehiscence. The plan at this time was to close with a running looped PDS stitch #1 and have interrupted #1 Prolene julio stitches. As we were progressing from bottom to top every couple of throws that I made with the looped PDS, I would then put a #1 Prolene julio stitch. This appeared to hold very well with the PDS suture. I took very large bites trying to stay right on fascia and try to minimize subcutaneous tissue. Please note that before and after closure, our peak airway pressures remained 28. Skin was cleaned and dried and a wound VAC was placed. I secured the two sump drains with 3-0 nylon sutures. Colostomy bag was placed over the colostomy again. The patient tolerated the procedure well. There were no complications. All counts were correct at the end of the case. I did speak to the and sister at great length at the end of the case. JOB# [id number] SARATH/LEO SANCHEZ
[~2019-12-25 11:11] MED LIST changes: +EPINEPHrine 1:10,000 1 MG/10 ML SYRINGE ONE; +HYDROmorphone 1 MG/1 ML INJ ONE; +ONDANSETRON 4 MG/2 ML INJ ONE; +PHENYLEPHRINE/NS 1,000 MCG/10 ML SYRINGE (OR USE) IV ONE; +ROCURONIUM 50 MG/5 ML INJ IV ONE; -SODIUM CHLORIDE 0.9% 1000 ML 1,000 ML IV SCH; +dexAMETHasone 20 MG/5 ML VIAL ONE
[2019-12-25] MEDS ORDERED: LIDOCAINE (4%) 40 MG/ML TOPICAL SOLN 50 ML BOTTLE TP SCH (12:15)
[2019-12-25] MEDS ORDERED: SILVER NITRATE APPLICATOR 1 EA TP SCH (12:15)
== END 2019-12-25 11:12 | disposition home or self-care (01) ==
LOC: WOUND 11:11
PROVIDERS: ATTEND Surgery
DX: L89.154 Pressure ulcer of sacral region, stage 4 (principal); K63.2 Fistula of intestine; E44.0 Moderate protein-calorie malnutrition; I10 Essential (primary) hypertension; I25.2 Old myocardial infarction; J44.9 Chronic obstructive pulmonary disease, unspecified; G47.30 Sleep apnea, unspecified; E66.01 Morbid (severe) obesity due to excess calories; Z87.891 Personal history of nicotine dependence; Z68.29 Body mass index [BMI] 29.0-29.9, adult; Z93.8 Other artificial opening status
CPT/HCPCS: 11042; 97605; G0463; 99214; J0171; J1100; J1170; J2370; J2405

== ENCOUNTER 2019-12-28 09:58 | Outpatient (CLI) | payer BC | END 2019-12-28 09:59 | disposition home or self-care (01) | LOC: WOUND 09:58 | PROVIDERS: ATTEND Surgery | DX: L89.154 Pressure ulcer of sacral region, stage 4 (principal); K63.2 Fistula of intestine; E44.0 Moderate protein-calorie malnutrition; I10 Essential (primary) hypertension; I25.2 Old myocardial infarction; J44.9 Chronic obstructive pulmonary disease, unspecified; E66.01 Morbid (severe) obesity due to excess calories; G47.30 Sleep apnea, unspecified; Z87.891 Personal history of nicotine dependence; Z68.29 Body mass index [BMI] 29.0-29.9, adult | CPT/HCPCS: 97605 ==

== ENCOUNTER 2020-01-01 13:53 | Outpatient (CLI) | payer BC | END 2020-01-01 13:54 | disposition home or self-care (01) | LOC: WOUND 13:53 | PROVIDERS: ATTEND Surgery | DX: L89.154 Pressure ulcer of sacral region, stage 4 (principal); I10 Essential (primary) hypertension; I25.2 Old myocardial infarction; E44.0 Moderate protein-calorie malnutrition; K63.2 Fistula of intestine; J44.9 Chronic obstructive pulmonary disease, unspecified; E66.01 Morbid (severe) obesity due to excess calories; G47.30 Sleep apnea, unspecified; Z87.891 Personal history of nicotine dependence | CPT/HCPCS: 97605 ==

== ENCOUNTER 2020-01-04 14:34 | Outpatient (CLI) | payer BC | END 2020-01-04 14:35 | disposition home or self-care (01) | LOC: WOUND 14:34 | PROVIDERS: ATTEND Surgery | DX: L89.154 Pressure ulcer of sacral region, stage 4 (principal); I10 Essential (primary) hypertension; I25.2 Old myocardial infarction; E44.0 Moderate protein-calorie malnutrition; K63.2 Fistula of intestine; J44.9 Chronic obstructive pulmonary disease, unspecified; E66.01 Morbid (severe) obesity due to excess calories; G47.30 Sleep apnea, unspecified; Z87.891 Personal history of nicotine dependence | CPT/HCPCS: 97605 ==

== ENCOUNTER 2020-01-08 13:54 | Outpatient (CLI) | payer BC ==
[2020-01-08] MEDS ORDERED: LIDOCAINE (4%) 40 MG/ML TOPICAL SOLN 50 ML BOTTLE TP ONE (15:00)
== END 2020-01-08 13:55 | disposition home or self-care (01) ==
LOC: WOUND 13:54
PROVIDERS: ATTEND Surgery
DX: L89.154 Pressure ulcer of sacral region, stage 4 (principal); I10 Essential (primary) hypertension; I25.2 Old myocardial infarction; E44.0 Moderate protein-calorie malnutrition; K63.2 Fistula of intestine; J44.9 Chronic obstructive pulmonary disease, unspecified; E66.01 Morbid (severe) obesity due to excess calories; G47.30 Sleep apnea, unspecified; Z87.891 Personal history of nicotine dependence
CPT/HCPCS: 97605

== ENCOUNTER 2020-01-11 10:44 | Outpatient (CLI) | payer BC ==
[2020-01-11] MEDS ORDERED: LIDOCAINE (4%) 40 MG/ML TOPICAL SOLN 50 ML BOTTLE TP ONE (10:45)
== END 2020-01-11 10:45 | disposition home or self-care (01) ==
LOC: WOUND 10:44
PROVIDERS: ATTEND Surgery
DX: L89.154 Pressure ulcer of sacral region, stage 4 (principal); I10 Essential (primary) hypertension; I25.2 Old myocardial infarction; E44.0 Moderate protein-calorie malnutrition; K63.2 Fistula of intestine; J44.9 Chronic obstructive pulmonary disease, unspecified; E66.01 Morbid (severe) obesity due to excess calories; G47.30 Sleep apnea, unspecified; Z87.891 Personal history of nicotine dependence
CPT/HCPCS: 97605

== ENCOUNTER 2020-01-15 13:54 | Outpatient (CLI) | payer BC | END 2020-01-15 13:55 | disposition home or self-care (01) | LOC: WOUND 13:54 | PROVIDERS: ATTEND Surgery | DX: L89.154 Pressure ulcer of sacral region, stage 4 (principal); I10 Essential (primary) hypertension; I25.2 Old myocardial infarction; E44.0 Moderate protein-calorie malnutrition; K63.2 Fistula of intestine; J44.9 Chronic obstructive pulmonary disease, unspecified; E66.01 Morbid (severe) obesity due to excess calories; G47.30 Sleep apnea, unspecified; Z87.891 Personal history of nicotine dependence | CPT/HCPCS: 97605 ==

== ENCOUNTER 2020-01-18 10:50 | Outpatient (CLI) | payer BC ==
[2020-01-18] MEDS ORDERED: LIDOCAINE (4%) 40 MG/ML TOPICAL SOLN 50 ML BOTTLE TP ONE (13:45)
== END 2020-01-18 10:51 | disposition home or self-care (01) ==
LOC: WOUND 10:50
PROVIDERS: ATTEND Surgery
DX: L89.154 Pressure ulcer of sacral region, stage 4 (principal); I10 Essential (primary) hypertension; I25.2 Old myocardial infarction; E44.0 Moderate protein-calorie malnutrition; K63.2 Fistula of intestine; J44.9 Chronic obstructive pulmonary disease, unspecified; E66.01 Morbid (severe) obesity due to excess calories; G47.30 Sleep apnea, unspecified; Z87.891 Personal history of nicotine dependence
CPT/HCPCS: 97605

== ENCOUNTER 2020-01-22 14:00 | Outpatient (CLI) | payer BC | END 2020-01-22 14:01 | disposition home or self-care (01) | LOC: WOUND 14:00 | PROVIDERS: ATTEND Surgery | DX: L89.154 Pressure ulcer of sacral region, stage 4 (principal); I10 Essential (primary) hypertension; I25.2 Old myocardial infarction; E44.0 Moderate protein-calorie malnutrition; K63.2 Fistula of intestine; J44.9 Chronic obstructive pulmonary disease, unspecified; E66.01 Morbid (severe) obesity due to excess calories; G47.30 Sleep apnea, unspecified; Z87.891 Personal history of nicotine dependence | CPT/HCPCS: 97605 ==

== ENCOUNTER 2020-01-25 10:36 | Outpatient (CLI) | payer BC ==
[2020-01-25] MEDS ORDERED: LIDOCAINE (4%) 40 MG/ML TOPICAL SOLN 50 ML BOTTLE TP ONE (10:54)
== END 2020-01-25 10:37 | disposition home or self-care (01) ==
LOC: WOUND 10:36
PROVIDERS: ATTEND Surgery
DX: L89.154 Pressure ulcer of sacral region, stage 4 (principal); I10 Essential (primary) hypertension; I25.2 Old myocardial infarction; E44.0 Moderate protein-calorie malnutrition; K63.2 Fistula of intestine; J44.9 Chronic obstructive pulmonary disease, unspecified; E66.01 Morbid (severe) obesity due to excess calories; G47.30 Sleep apnea, unspecified; Z87.891 Personal history of nicotine dependence
CPT/HCPCS: 97605

== ENCOUNTER 2020-01-29 13:53 | Outpatient (CLI) | payer BC | END 2020-01-29 13:54 | disposition home or self-care (01) | LOC: WOUND 13:53 | PROVIDERS: ATTEND Surgery | DX: L89.154 Pressure ulcer of sacral region, stage 4 (principal); I10 Essential (primary) hypertension; I25.2 Old myocardial infarction; E44.0 Moderate protein-calorie malnutrition; K63.2 Fistula of intestine; J44.9 Chronic obstructive pulmonary disease, unspecified; E66.01 Morbid (severe) obesity due to excess calories; G47.30 Sleep apnea, unspecified; Z87.891 Personal history of nicotine dependence | CPT/HCPCS: 97605 ==

== ENCOUNTER 2020-02-08 10:47 | Outpatient (CLI) | payer BC ==
[2020-02-08] MEDS ORDERED: LIDOCAINE (4%) 40 MG/ML TOPICAL SOLN 50 ML BOTTLE TP ONE (11:30)
== END 2020-02-08 10:48 | disposition home or self-care (01) ==
LOC: WOUND 10:47
PROVIDERS: ATTEND Surgery
DX: L89.154 Pressure ulcer of sacral region, stage 4 (principal); I10 Essential (primary) hypertension; E44.0 Moderate protein-calorie malnutrition; K63.2 Fistula of intestine; J44.9 Chronic obstructive pulmonary disease, unspecified; E66.01 Morbid (severe) obesity due to excess calories; G47.30 Sleep apnea, unspecified; Z87.891 Personal history of nicotine dependence; Z68.27 Body mass index [BMI] 27.0-27.9, adult
CPT/HCPCS: 97605

== ENCOUNTER 2020-02-15 10:46 | Outpatient (CLI) | payer BC ==
[2020-02-15] MEDS ORDERED: LIDOCAINE (4%) 40 MG/ML TOPICAL SOLN 50 ML BOTTLE TP ONE (11:30)
== END 2020-02-15 10:47 | disposition home or self-care (01) ==
LOC: WOUND 10:46
PROVIDERS: ATTEND Surgery
DX: L89.154 Pressure ulcer of sacral region, stage 4 (principal); I10 Essential (primary) hypertension; I25.2 Old myocardial infarction; E44.0 Moderate protein-calorie malnutrition; K63.2 Fistula of intestine; J44.9 Chronic obstructive pulmonary disease, unspecified; E66.01 Morbid (severe) obesity due to excess calories; G47.30 Sleep apnea, unspecified; Z87.891 Personal history of nicotine dependence

== ENCOUNTER 2020-02-22 10:50 | Outpatient (CLI) | payer BC ==
[2020-02-22] MEDS ORDERED: LIDOCAINE (4%) 40 MG/ML TOPICAL SOLN 50 ML BOTTLE TP ONE (10:54)
== END 2020-02-22 10:51 | disposition home or self-care (01) ==
LOC: WOUND 10:50
PROVIDERS: ATTEND Surgery
DX: L89.154 Pressure ulcer of sacral region, stage 4 (principal); I10 Essential (primary) hypertension; I25.2 Old myocardial infarction; E44.0 Moderate protein-calorie malnutrition; K63.2 Fistula of intestine; J44.9 Chronic obstructive pulmonary disease, unspecified; E66.01 Morbid (severe) obesity due to excess calories; G47.30 Sleep apnea, unspecified; Z87.891 Personal history of nicotine dependence

== ENCOUNTER 2020-03-03 13:45 | Outpatient (CLI) | payer BC ==
[2020-03-03] MEDS ORDERED: LIDOCAINE (4%) 40 MG/ML TOPICAL SOLN 50 ML BOTTLE TP ONE (13:46)
== END 2020-03-03 13:46 | disposition home or self-care (01) ==
LOC: WOUND 13:45
PROVIDERS: ATTEND Surgery
DX: L89.154 Pressure ulcer of sacral region, stage 4 (principal); I10 Essential (primary) hypertension; I25.2 Old myocardial infarction; E44.0 Moderate protein-calorie malnutrition; K63.2 Fistula of intestine; J44.9 Chronic obstructive pulmonary disease, unspecified; E66.01 Morbid (severe) obesity due to excess calories; G47.30 Sleep apnea, unspecified; Z68.29 Body mass index [BMI] 29.0-29.9, adult; Z87.891 Personal history of nicotine dependence

== ENCOUNTER 2020-03-10 12:55 | Outpatient (CLI) | payer BC ==
[2020-03-10] MEDS ORDERED: LIDOCAINE (4%) 40 MG/ML TOPICAL SOLN 50 ML BOTTLE TP ONE (13:03)
== END 2020-03-10 12:56 | disposition home or self-care (01) ==
LOC: WOUND 12:55
PROVIDERS: ATTEND Surgery
DX: L89.154 Pressure ulcer of sacral region, stage 4 (principal); I10 Essential (primary) hypertension; I25.2 Old myocardial infarction; E44.0 Moderate protein-calorie malnutrition; K63.2 Fistula of intestine; J44.9 Chronic obstructive pulmonary disease, unspecified; E66.01 Morbid (severe) obesity due to excess calories; G47.30 Sleep apnea, unspecified; Z68.29 Body mass index [BMI] 29.0-29.9, adult; Z87.891 Personal history of nicotine dependence

== ENCOUNTER 2020-03-24 12:54 | Outpatient (CLI) | payer BC | END 2020-03-24 12:55 | disposition home or self-care (01) | LOC: WOUND 12:54 | PROVIDERS: ATTEND Surgery | DX: L89.154 Pressure ulcer of sacral region, stage 4 (principal); I10 Essential (primary) hypertension; I25.2 Old myocardial infarction; E44.0 Moderate protein-calorie malnutrition; K63.2 Fistula of intestine; J44.9 Chronic obstructive pulmonary disease, unspecified; E66.01 Morbid (severe) obesity due to excess calories; G47.30 Sleep apnea, unspecified; Z68.29 Body mass index [BMI] 29.0-29.9, adult; Z87.891 Personal history of nicotine dependence ==

== ENCOUNTER 2020-04-14 13:05 | Outpatient (CLI) | payer BC | END 2020-04-14 13:06 | disposition home or self-care (01) | LOC: WOUND 13:05 | PROVIDERS: ATTEND Surgery | DX: L89.154 Pressure ulcer of sacral region, stage 4 (principal); I10 Essential (primary) hypertension; I25.2 Old myocardial infarction; E44.0 Moderate protein-calorie malnutrition; K63.2 Fistula of intestine; J44.9 Chronic obstructive pulmonary disease, unspecified; E66.01 Morbid (severe) obesity due to excess calories; G47.30 Sleep apnea, unspecified; Z68.29 Body mass index [BMI] 29.0-29.9, adult; Z87.891 Personal history of nicotine dependence | CPT/HCPCS: 99213; G0463 ==

== ENCOUNTER 2020-05-19 12:51 | Emergency (ER) | payer BC ==
--- NOTE | 2020-05-19 13:40 | Event Note ---
ED Screening Note ED Screening Note: Patient states that he had a complication due to a colonoscopy back in September and now has an ostomy present and a drain present in the abdomen He states over the last 2 to 3 days he has had increased lower abdominal pain and states he has had decreased output from his drain He denies any nausea, vomiting He denies any urinary symptoms He states that his surgeon is Dr. Krause This initial assessment/diagnostic orders/clinical plan/treatment(s) is/are subject to change based on patients health status, clinical progression and re- assessment by fellow clinical providers in the ED. Further treatment and workup at subsequent clinical providers discretion. Patient/guardian urged not to elope from the ED as their condition may be serious if not clinically assessed and managed. Initial orders include: labs ct
[2020-05-19 14:16] LABS: Basophils # (Auto) 0.1 K/mm3 (0.0-0.1); Eosinophils # (Auto) 0.1 K/mm3 (0.0-0.4); Eosinophils % (Auto) 0.8 % (0.0-4.3); Hematocrit 40.4 % (35.5-45.6); Hemoglobin 13.3 gm/dl (11.8-15.2); Lymphocytes # (Auto) 1.5 K/mm3 (1.2-5.4); Lymphocytes % (Auto) 11.6 % (13.4-35.0); Mean Corpuscular HGB Conc 33 % (32-34); Mean Corpuscular Volume 83 fl (84-94); Monocytes # (Auto) 0.8 K/mm3 (0.0-0.8); Monocytes % (Auto) 6.4 % (0.0-7.3); Platelet Count 321 K/mm3 (140-440); Red Blood Count 4.87 M/mm3 (3.65-5.03); Red Cell Distribution Width 16.5 % (13.2-15.2)
[2020-05-19 14:38] LABS: Alanine Aminotransferase 58 units/L (7-56); Albumin 3.7 g/dL (3.9-5); BUN/Creatinine Ratio 13; Blood Urea Nitrogen 10 mg/dL (9-20); Calcium 9.5 mg/dL (8.4-10.2); Hemolysis Index 6
[2020-05-19 15:22] VITALS: BP 132/86
--- NOTE | 2020-05-19 15:45 | Emergency Department Report ---
ED Abdominal Pain HPI - General Chief Complaint: Abdominal Pain Stated Complaint: ABD PAIN Time Seen by Provider: 05/19/20 13:38 Source: patient Mode of arrival: Ambulatory Limitations: No Limitations - History of Present Illness Initial Comments: This is a 55-year-old male nontoxic, well nourished in appearance, no acute signs of distress presents to the ED with c/o of diffuse abdominal pain and distension. Patient stated symptoms started after having a colonscopy in September 2019. Patient has ostomy present and a drain present in the abdominal wall. Stated has been having hard stools. Agrees for decreased urine flow. Patient denies any n/v. Patient describes abdominal pain as cramping and aching with level of 8/10 to lower abdominal area. Patient denies chest pain, short of breath, fever, hemoptysis, blood in stool, chills, headache, stiff neck, numbness or tingling. Patient denies any diarrhea or constipation. Denies any blood in stool. Patient denies any recent travels. MD Complaint: abdominal pain -: week(s) Location: LLQ, RLQ Radiation: none Migration to: no migration Severity: moderate Severity scale (0 -10): 8 Quality: cramping, aching Consistency: constant Improves With: nothing Worsens With: nothing Associated Symptoms: denies other symptoms. denies: nausea, vomiting, diarrhea, fever, chills, constipation, dysuria, hematemesis, hematochezia, melena, hematuria, anorexia, syncope - Related Data Previous Rx's Medication Instructions Recorded Last Taken Type Ipratropium/Albuterol Sulfate 1 ampul IH Q6HRT #30 ampul.neb 08/17/18 12/05/19 Rx [DUONEB *Not for PRN Use*] Symbicort 160-4.5 Mcg Inhaler 1 puff INHALATION BID #30 08/17/18 09/05/19 23:00 Rx Arformoterol Nebu [Brovana Nebu] 15 mcg IH Q12HRT ml 12/05/19 Unknown Rx Budesonide [Pulmicort Respules] 0.5 mg IH Q12HRT nebu 12/05/19 Unknown Rx Amiodarone [Cordarone 200 MG TAB] 200 mg PO QDAY #30 tablet 12/21/19 Unknown Rx Gabapentin 300 mg PO QHS #30 capsule 12/21/19 Unknown Rx Melatonin [Melatonin 5MG TAB] 5 mg PO QHS #30 tablet 12/21/19 Unknown Rx Metoprolol [Lopressor TAB] 12.5 mg PO Q8HR #45 tablet 12/21/19 Unknown Rx Pantoprazole [Protonix TAB] 40 mg PO QDAY #30 tablet 12/21/19 Unknown Rx Pravastatin [Pravachol] 20 mg PO QHS #30 tablet 12/21/19 Unknown Rx oxyCODONE [roxiCODONE] 5 mg PO Q8HR PRN #60 tablet 12/21/19 Unknown Rx Ciprofloxacin HCl [Ciprofloxacin 500 mg PO Q12HR #20 tab 05/19/20 Unknown Rx TAB] HYDROcodone/APAP 10-325 [[place] 1 each PO Q8HR PRN #12 tablet 05/19/20 Unknown Rx 10/325] metroNIDAZOLE [Flagyl] 500 mg PO Q12HR #20 tab 05/19/20 Unknown Rx Allergies Allergy/AdvReac Type Severity Reaction Status Date / Time Sulfa (Sulfonamide Allergy Severe Rash Verified 03/22/16 18:34 Antibiotics) oxytetracycline Allergy Unknown Verified 03/22/16 10:32 [From Terramycin] oxytetracycline HCl Allergy Unknown Verified 03/22/16 10:32 [From Terramycin] Penicillins Allergy Hives Verified 05/19/20 13:02 ED Review of Systems ROS: Stated complaint: ABD PAIN Other details as noted in HPI Constitutional: denies: chills, fever Eyes: denies: eye pain, eye discharge, vision change ENT: denies: ear pain, throat pain Respiratory: denies: cough, shortness of breath, wheezing Cardiovascular: denies: chest pain, palpitations Endocrine: no symptoms reported Gastrointestinal: abdominal pain, constipation. 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 collapsed right lung: chest tube placed/ BLEEDING ULCER/ COLON REACTION - Social History Smoking Status: Never Smoker - Medications Home Medications: Home Medications Medication Instructions Recorded Confirmed Last Taken Type Ipratropium/Albuterol Sulfate 1 ampul IH Q6HRT #30 ampul.neb 08/17/18 12/07/19 12/05/19 Rx [DUONEB *Not for PRN Use*] Symbicort 160-4.5 Mcg Inhaler 1 puff INHALATION BID #30 08/17/18 12/07/19 09/05/19 23:00 Rx Arformoterol Nebu [Brovana Nebu] 15 mcg IH Q12HRT ml 12/05/19 12/07/19 Unknown Rx Budesonide [Pulmicort Respules] 0.5 mg IH Q12HRT nebu 12/05/19 12/07/19 Unknown Rx Amiodarone [Cordarone 200 MG TAB] 200 mg PO QDAY #30 tablet 12/21/19 Unknown Rx Gabapentin 300 mg PO QHS #30 capsule 12/21/19 Unknown Rx Melatonin [Melatonin 5MG TAB] 5 mg PO QHS #30 tablet 12/21/19 Unknown Rx Metoprolol [Lopressor TAB] 12.5 mg PO Q8HR #45 tablet 12/21/19 Unknown Rx Pantoprazole [Protonix TAB] 40 mg PO QDAY #30 tablet 12/21/19 Unknown Rx Pravastatin [Pravachol] 20 mg PO QHS #30 tablet 12/21/19 Unknown Rx oxyCODONE [roxiCODONE] 5 mg PO Q8HR PRN #60 tablet 12/21/19 Unknown Rx Ciprofloxacin HCl [Ciprofloxacin 500 mg PO Q12HR #20 tab 05/19/20 Unknown Rx TAB] HYDROcodone/APAP 10-325 [[place] 1 each PO Q8HR PRN #12 tablet 05/19/20 Unknown Rx 10/325] metroNIDAZOLE [Flagyl] 500 mg PO Q12HR #20 tab 05/19/20 Unknown Rx ED Physical Exam - General Limitations: No Limitations General appearance: alert, in no apparent distress - Head Head exam: Present: atraumatic, normocephalic - Eye Eye exam: Present: normal appearance - Neck Neck exam: Present: normal inspection, full ROM. Absent: tenderness, meningismus, lymphadenopathy - Respiratory Respiratory exam: Present: normal lung sounds bilaterally. Absent: respiratory distress, wheezes, rales, rhonchi, stridor, chest wall tenderness, accessory muscle use, decreased breath sounds, prolonged expiratory - Cardiovascular Cardiovascular Exam: Present: regular rate, normal rhythm, normal heart sounds. Absent: bradycardia, tachycardia, irregular rhythm, systolic murmur, diastolic murmur, rubs, gallop - GI/Abdominal GI/Abdominal exam: Present: distended, tenderness (diffuse), normal bowel sounds, other (Patient does have ostomy and drain present in his abdomen.). Absent: guarding, rebound, rigid, diminished bowel sounds - Extremities Exam Extremities exam: Present: normal inspection, full ROM, normal capillary refill. Absent: tenderness - Back Exam Back exam: Present: normal inspection, full ROM. Absent: tenderness, CVA tenderness (R), CVA tenderness (L), muscle spasm, paraspinal tenderness, vertebral tenderness, rash noted - Neurological Exam Neurological exam: Present: alert, oriented X3, normal gait - Psychiatric Psychiatric exam: Present: normal affect, normal mood - Skin Skin exam: Present: warm, dry, intact, normal color. Absent: rash ED Course Vital Signs 05/19/20 05/19/20 13:06 15:18 Temperature 98.5 F 98.2 F Pulse Rate 86 82 Respiratory 18 18 Rate Blood Pressure 132/86 Blood Pressure 132/73 [Right] O2 Sat by Pulse 100 100 Oximetry - Reevaluation(s) Reevaluation #1: 05/19/20 15:44 Patient is speaking in full sentences with no signs of distress noted. - Consultations Consultation #1: 05/19/20 15:[address] Krause (patients general surgery) and will come see patient shortly. Consultation #2: 05/19/20 16:[address] Krause, patient can be discharged and will come at 8 AM for outpatient interventional radiology procedure with Dr. Adames. ED Medical Decision Making - Lab Data Result diagrams: 05/19/20 13:59 05/19/20 13:59 Lab Results 05/19/20 05/19/20 Range/Units 13:59 13:59 WBC 13.1 H (4.5-11.0) K/mm3 RBC 4.87 (3.65-5.03) M/mm3 Hgb 13.3 (11.8-15.2) gm/dl Hct 40.4 (35.5-45.6) % MCV 83 L (84-94) fl MCH 27 L (28-32) pg MCHC 33 (32-34) % RDW 16.5 H (13.2-15.2) % Plt Count 321 (140-440) K/mm3 Lymph % (Auto) 11.6 L (13.4-35.0) % Miner % (Auto) 6.4 (0.0-7.3) % Eos % (Auto) 0.8 (0.0-4.3) % Baso % (Auto) 1.0 (0.0-1.8) % Lymph # 1.5 (1.2-5.4) K/mm3 Miner # 0.8 (0.0-0.8) K/mm3 Eos # 0.1 (0.0-0.4) K/mm3 Baso # 0.1 (0.0-0.1) K/mm3 Seg Neutrophils % 80.2 H (40.0-70.0) % Seg Neutrophils # 10.5 H (1.8-7.7) K/mm3 Sodium 137 (137-145) mmol/L Potassium 4.1 (3.6-5.0) mmol/L Chloride 98.4 (98-107) mmol/L Carbon Dioxide 25 (22-30) mmol/L Anion Gap 18 mmol/L BUN 10 (9-20) mg/dL Creatinine 0.8 (0.8-1.5) mg/dL Estimated GFR > 60 ml/min BUN/Creatinine Ratio 13 % Glucose 84 (75-100) mg/dL Calcium 9.5 (8.4-10.2) mg/dL Total Bilirubin 0.70 (0.1-1.2) mg/dL AST 33 (5-40) units/L ALT 58 H (7-56) units/L Alkaline Phosphatase 156 H (35-129) units/L Total Protein 7.2 (6.3-8.2) g/dL Albumin 3.7 L (3.9-5) g/dL Albumin/Globulin Ratio 1.1 % Lipase 18 (13-60) units/L - Radiology Data Referring Physician: DESTINY VALERO Patient Name: REBEKAH CAMACHO Date of : 1965 Sex: Male Report Date: 2020-05-19 Report Status: Finalized [facility] [address] [place] [address] Cat Scan Report Signed Patient: REBEKAH CAMACHO MR#: [id number] : 1965 Acct:[id number] Age/Sex: 55 / M ADM Date: 05/19/20 Loc: ED Attending Dr: Ordering Physician: DESTINY VALERO NP Date of Service: 05/19/20 Procedure(s): CT abdomen pelvis w con Accession Number(s): [id number] cc: DESTINY VALERO NP CT ABDOMEN AND PELVIS WITH IV CONTRAST INDICATION: abd pain OMNIPAQUE 300 100ML . COMPARISON: CT 11/29/2019 TECHNIQUE: All CT scans at this facility use dose modulation, automated exposure control, iterative reconstruction or weight based dosing, when appropriate, to reduce radiation dose to as low as reasonably achievable. FINDINGS: Lung Bases: No significant abnormality. Skeletal System: No acute abnormality. ABDOMEN: Liver: No significant abnormality. Gallbladder: No significant abnormality. Bile Ducts: No significant abnormality. Pancreas: No significant abnormality. Spleen: No significant abnormality. Adrenals: No significant abnormality. Right Kidney: No significant abnormality. Left Kidney: No significant abnormality. Upper GI tract: No significant abnormality. Lymph Nodes: No significant adenopathy. Aorta: No significant abnormality. Additional Findings: There is a catheter fragment overlying umbilical approach appears to enter the jejunum. There is a tiny periumbilical hernia which contains a single loop of small bowel (seen best on axial series 2 image 77). PELVIS: Colon: Left lower quadrant diverting colostomy is noted. There is anastomosis in the mid to distal colon in the left lower abdomen. This is just distal to the colostomy. Urinary Bladder and Distal Urete rs: There is mild bladder wall thickening. Appendix: No significant abnormality. Lymph Nodes: No significant adenopathy. Additional Findings: Adjacent to the sigmoid colon within the midline pelvis, there is a peripherally enhancing fluid collection which measures 6.3 x 5.7 cm on axial image 142. There is focal inflammation in the pericolonic mesentery in the left hemipelvis adjacent to this around image 133. IMPRESSION: 1. New since the prior CT from November, there is a 6.3 x 5.7 cm peripherally enhancing fluid collection within the midline pelvis between the bladder and sigmoid colon. No gas is seen within this. This is concerning for pericolonic abscess. There is mild pericolonic inflammation left lower quadrant mesentery near the root. 2. Incidental findings, as above. Signer Name: Molina Helm MD Signed: 05/19/2020 4:03 PM Workstation Name: [id number]- [id number] Transcribed By: BARB Dictated By: Molina Helm MD Electronically Authenticated By: Molina Helm MD Signed Date/Time: 05/19/20 1603 DD/ 1555 TD/TT: - Medical Decision Making 55-year-old male that presents with abdominal abscess. Patient is stable and was examined by me. Patient to be reported to outpatient registration for interventional radiology tomorrow morning at [address] Krause, patient also to receive cipro, flagyl, and pain medications at discharge. Patient was notified of this and agrees to the plan of care. At time of discharge, the patient does not seem toxic or ill in appearance. No acute signs of distress noted. Patient agrees to discharge treatment plan of care. No further questions noted by the patient. Critical care attestation.: If time is entered above; I have spent that time in minutes in the direct care of this critically ill patient, excluding procedure time. ED Disposition Clinical Impression: Abdominal wall abscess Disposition: DC-01 TO HOME OR SELFCARE Is pt being admited?: No Does the pt Need Aspirin: No Condition: Stable Additional Instructions: As instructed to you in the emergency room by your surgeon, please report to ou tpatient registration for your procedure tomorrow morning at 8 AM. Do not have anything to eat or drink after 12 AM. Do not operate any machinery while taking [place] as this may cause drowsiness. Prescriptions: Ciprofloxacin HCl [Ciprofloxacin TAB] 500 mg PO Q12HR #20 tab metroNIDAZOLE [Flagyl] 500 mg PO Q12HR #20 tab HYDROcodone/APAP 10-325 [[place] 10/325] 1 each PO Q8HR PRN #12 tablet PRN Reason: Pain Referrals: ANKITA KRAUSE MD [Primary Care Provider] - 3-5 Days PRIMARY CAREMD [Referring] - 3-5 Days Forms: Work/School Release Form(ED)
--- NOTE | 2020-05-19 16:07 | Cat Scan Report ---
CT ABDOMEN AND PELVIS WITH IV CONTRAST INDICATION: abd pain OMNIPAQUE 300 100ML . COMPARISON: CT 11/29/2019 TECHNIQUE: All CT scans at this facility use dose modulation, automated exposure control, iterative reconstructi on or weight based dosing, when appropriate, to reduce radiation dose to as low as reasonably achieva ble. FINDINGS: Lung Bases: No significant abnormality. Skeletal System: No acute abnormality. ABDOMEN: Liver: No significant abnormality. Gallbladder: No significant abnormality. Bile Ducts: No significant abnormality. Pancreas: No significant abnormality. Spleen: No significant abnormality. Adrenals: No significant abnormality. Right Kidney: No significant abnormality. Left Kidney: No significant abnormality. Upper GI tract: No significant abnormality. Lymph Nodes: No significant adenopathy. Aorta: No significant abnormality. Additional Findings: There is a catheter fragment overlying umbilical approach appears to enter the j ejunum. There is a tiny periumbilical hernia which contains a single loop of small bowel (seen best o n axial series 2 image 77). PELVIS: Colon: Left lower quadrant diverting colostomy is noted. There is anastomosis in the mid to distal colon in the left lower abdomen. This is just distal to the colostomy. Urinary Bladder and Distal Ureters: There is mild bladder wall thickening. Appendix: No significant abnormality. Lymph Nodes: No significant adenopathy. Additional Findings: Adjacent to the sigmoid colon within the midline pelvis, there is a peripherally enhancing fluid collection which measures 6.3 x 5.7 cm on axial image 142. There is focal inflammati on in the pericolonic mesentery in the left hemipelvis adjacent to this around image 133. IMPRESSION: 1. New since the prior CT from November, there is a 6.3 x 5.7 cm peripherally enhancing fluid collect ion within the midline pelvis between the bladder and sigmoid colon. No gas is seen within this. This is concerning for pericolonic abscess. There is mild pericolonic inflammation left lower quadrant me sentery near the root. 2. Incidental findings, as above. Signer Name: Molina Helm MD Signed: 05/19/2020 4:03 PM Workstation Name: [id number]
[2020-05-19] MEDS ORDERED: MORPHINE 4 MG/1 ML INJ IV ONE (16:26)
[2020-05-19] MEDS ORDERED: SODIUM CHLORIDE 0.9% 1000 ML 1,000 ML IV ONE (16:26)
--- NOTE | 2020-05-19 17:04 | Consultation ---
History of Present Illness Consult date: 05/19/20 Reason for consult: abdominal pain Requesting physician: DESTINY VALERO Chief complaint: abdominal pain - History of present illness History of present illness: 55yo M who is well known to our service presents with relatively new pelvic pain. Has had some mild fevers (99). Denies chills, N/V. Ostomy working well. Drainage from midline drain has stopped over last two days. Feels like he needs to have a BM. Feels a lot of pressure in the pelvic area that radiates to the flanks. Past History Past Medical History: acute [place], COPD, hypertension, hyperlipidemia Past Surgical History: PTCA (with stent placement), bowel surgery Social history: denies: smoking, alcohol abuse Medications and Allergies Allergies Allergy/AdvReac Type Severity Reaction Status Date / Time Sulfa (Sulfonamide Allergy Severe Rash Verified 03/22/16 18:34 Antibiotics) oxytetracycline Allergy Unknown Verified 03/22/16 10:32 [From Terramycin] oxytetracycline HCl Allergy Unknown Verified 03/22/16 10:32 [From Terramycin] Penicillins Allergy Hives Verified 05/19/20 13:02 Home Medications Medication Instructions Recorded Confirmed Last Taken Type Ipratropium/Albuterol Sulfate 1 ampul IH Q6HRT #30 ampul.neb 08/17/18 12/07/19 12/05/19 Rx [DUONEB *Not for PRN Use*] Symbicort 160-4.5 Mcg Inhaler 1 puff INHALATION BID #30 08/17/18 12/07/19 09/05/19 23:00 Rx Arformoterol Nebu [Brovana Nebu] 15 mcg IH Q12HRT ml 12/05/19 12/07/19 Unknown Rx Budesonide [Pulmicort Respules] 0.5 mg IH Q12HRT nebu 12/05/19 12/07/19 Unknown Rx Amiodarone [Cordarone 200 MG TAB] 200 mg PO QDAY #30 tablet 12/21/19 Unknown Rx Gabapentin 300 mg PO QHS #30 capsule 12/21/19 Unknown Rx Melatonin [Melatonin 5MG TAB] 5 mg PO QHS #30 tablet 12/21/19 Unknown Rx Metoprolol [Lopressor TAB] 12.5 mg PO Q8HR #45 tablet 02/07/20 Unknown Rx Pantoprazole [Protonix TAB] 40 mg PO QDAY #30 tablet 12/21/19 Unknown Rx Pravastatin [Pravachol] 20 mg PO QHS #30 tablet 12/21/19 Unknown Rx oxyCODONE [roxiCODONE] 5 mg PO Q8HR PRN #60 tablet 12/21/19 Unknown Rx Ciprofloxacin HCl [Ciprofloxacin 500 mg PO Q12HR #20 tab 05/19/20 Unknown Rx TAB] HYDROcodone/APAP 10-325 [Ralph 1 each PO Q8HR PRN #12 tablet 05/19/20 Unknown Rx 10/325] metroNIDAZOLE [Flagyl] 500 mg PO Q12HR #20 tab 05/19/20 Unknown Rx Active Meds: Active Medications Sodium Chloride (Nacl 0.9% 1000 Ml) 1,000 mls @ 999 mls/hr IV BOLUS ONE Stop: 05/19/20 17:26 Last Admin: 05/19/20 16:35 Dose: 999 mls/hr Documented by: Review of Systems - Constitutional fever (mild), other (intermittent pain), no chills - Cardiovascular no chest pain, no shortness of breath - Respiratory no cough - Gastrointestinal abdominal pain, no nausea, no vomiting, no change in bowel habits - Genitourinary no dysuria - Muskuloskeletal no low back pain - Integumentary wounds (stable), no rash, no pruritis, no sores Exam Vital Signs Temp Pulse Resp BP Pulse Ox 98.5 F 86 18 132/73 100 05/19/20 13:06 05/19/20 13:06 05/19/20 13:06 05/19/20 13:06 05/19/20 13:06 - General physical appearance Positive: well developed, well nourished, no distress, moderate pain, obese, other (does not appear toxic) - Eyes Positive: normal occular movement - Respiratory Positive: normal expansion, normal respiratory effort - Abdomen Abdomen: Present: soft, tender (in lower abdomen. ), other (drain still in place. Ostomy normal.) - Integumentary no rash, no growths, no abnormal pigmentation - Neurologic Neurologic: alert and oriented to time, place and person, motor strength and sensation are grossly intact - Psychiatric Psychiatric: appropriate mood/affect, intact judgment & insight, cooperative Results - Labs 05/19/20 13:59 05/19/20 13:59 Abnormal lab results 05/19/20 05/19/20 Range/Units 13:59 13:59 WBC 13.1 H (4.5-11.0) K/mm3 MCV 83 L (84-94) fl MCH 27 L (28-32) pg RDW 16.5 H (13.2-15.2) % Lymph % (Auto) 11.6 L (13.4-35.0) % Seg Neutrophils % 80.2 H (40.0-70.0) % Seg Neutrophils # 10.5 H (1.8-7.7) K/mm3 ALT 58 H (7-56) units/L Alkaline Phosphatase 156 H (35-129) units/L Albumin 3.7 L (3.9-5) g/dL Diabetes panel 05/19/20 Range/Units 13:59 Sodium 137 (137-145) mmol/L Potassium 4.1 (3.6-5.0) mmol/L Chloride 98.4 (98-107) mmol/L Carbon Dioxide 25 (22-30) mmol/L BUN 10 (9-20) mg/dL Creatinine 0.8 (0.8-1.5) mg/dL Glucose 84 (75-100) mg/dL Calcium 9.5 (8.4-10.2) mg/dL AST 33 (5-40) units/L ALT 58 H (7-56) units/L Alkaline Phosphatase 156 H (35-129) units/L Total Protein 7.2 (6.3-8.2) g/dL Albumin 3.7 L (3.9-5) g/dL Calcium panel 05/19/20 Range/Units 13:59 Calcium 9.5 (8.4-10.2) mg/dL Albumin 3.7 L (3.9-5) g/dL Pituitary panel 05/19/20 Range/Units 13:59 Sodium 137 (137-145) mmol/L Potassium 4.1 (3.6-5.0) mmol/L Chloride 98.4 (98-107) mmol/L Carbon Dioxide 25 (22-30) mmol/L BUN 10 (9-20) mg/dL Creatinine 0.8 (0.8-1.5) mg/dL Glucose 84 (75-100) mg/dL Calcium 9.5 (8.4-10.2) mg/dL Adrenal panel 05/19/20 Range/Units 13:59 Sodium 137 (137-145) mmol/L Potassium 4.1 (3.6-5.0) mmol/L Chloride 98.4 (98-107) mmol/L Carbon Dioxide 25 (22-30) mmol/L BUN 10 (9-20) mg/dL Creatinine 0.8 (0.8-1.5) mg/dL Glucose 84 (75-100) mg/dL Calcium 9.5 (8.4-10.2) mg/dL Total Bilirubin 0.70 (0.1-1.2) mg/dL AST 33 (5-40) units/L ALT 58 H (7-56) units/L Alkaline Phosphatase 156 H (35-129) units/L Total Protein 7.2 (6.3-8.2) g/dL Albumin 3.7 L (3.9-5) g/dL - Imaging CT scan - abdomen: report reviewed, image reviewed CT scan - pelvis: report reviewed, image reviewed Assessment and Plan - Patient Problems (1) Pelvic abscess in male Current Visit: Yes Status: Acute Plan to address problem: Pt stable. 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 Pt wishes to have the drainage done tomorrow as opposed to being admitted for the procedure. I called Dr. Adames to see if it could be arranged. He was kind enough to make special arrangements to have Mr. Moreno coming in tomorrow at 8am for a drainage procedure. We have instructed him to be NPO after midnight. He will receive 1L of IVF and morphine prior to discharge from the ED. He will be sent home with Abx and pain meds. Pt and were very appreciative. Time=30min
== END 2020-05-19 17:48 | disposition home or self-care (01) ==
LOC: ED 12:51
DX: L02.211 Cutaneous abscess of abdominal wall (principal); I10 Essential (primary) hypertension; I25.2 Old myocardial infarction; J44.9 Chronic obstructive pulmonary disease, unspecified
CPT/HCPCS: 36415; 74177; 80053; 83690; 85025; 96374; 99284; J2270; J7030; Q9967

== ENCOUNTER 2020-05-20 07:23 | Day surgery (SDC) | payer BC ==
[2020-05-20] MEDS ORDERED: MIDAZOLAM 5 MG/5 ML INJ MDV IV ONE (08:18)
[2020-05-20] MEDS ORDERED: fentaNYL 100 MCG/2 ML INJ IV ONE ×2 (08:18→10:30)
[2020-05-20 08:27] LABS: Hematocrit 37.9 % (35.5-45.6); Hemoglobin 12.6 gm/dl (11.8-15.2); Mean Corpuscular HGB Conc 33 % (32-34); Mean Corpuscular Volume 83 fl (84-94); Platelet Count 279 K/mm3 (140-440); Red Blood Count 4.55 M/mm3 (3.65-5.03); Red Cell Distribution Width 16.6 % (13.2-15.2)
[2020-05-20 08:41] LABS: INR 1.09 (0.87-1.13)
[2020-05-20 08:42] LABS: Partial Thromboplastin Time 27.2 Sec. (24.2-36.6)
[2020-05-20] MEDS ORDERED: fentaNYL 100 MCG/2 ML INJ ONE (10:21)
[2020-05-20] MEDS ORDERED: VANCOMYCIN/NS 1 GM/250 ML 1 GM/250 ML BAG IV ONE (10:30)
--- NOTE | 2020-05-20 11:03 | Short Stay Summary ---
Short Stay Documentation Date of service: 05/20/20 Narrative H&P: 55-year-old male with history of colonic perforation after colonoscopy status post multiple abdominal surgeries who ultimately was discharged with end colostomy who now presents with pelvic fluid collection. - History Principal diagnosis: Pelvic fluid collection Past Medical History: acute [place], COPD, hypertension, hyperlipidemia Past Surgical History: PTCA, bowel surgery Social history: , no smoking, no alcohol abuse - Allergies and Medications Current Medications: Allergies Sulfa (Sulfonamide Antibiotics) Allergy (Severe, Verified 03/22/16 18:34) Rash oxytetracycline [From Terramycin] Allergy (Verified 03/22/16 10:32) Unknown oxytetracycline HCl [From Terramycin] Allergy (Verified 03/22/16 10:32) Unknown Penicillins Allergy (Verified 05/19/20 13:02) Hives Home Medications Medication Instructions Recorded Confirmed Last Taken Type Ipratropium/Albuterol Sulfate 1 ampul IH Q6HRT #30 ampul.neb 08/17/18 12/07/19 12/05/19 Rx [DUONEB *Not for PRN Use*] Symbicort 160-4.5 Mcg Inhaler 1 puff INHALATION BID #30 08/17/18 12/07/19 09/05/19 23:00 Rx Arformoterol Nebu [Brovana Nebu] 15 mcg IH Q12HRT ml 12/05/19 12/07/19 Unknown Rx Budesonide [Pulmicort Respules] 0.5 mg IH Q12HRT nebu 12/05/19 12/07/19 Unknown Rx Amiodarone [Cordarone 200 MG TAB] 200 mg PO QDAY #30 tablet 12/21/19 Unknown Rx Gabapentin 300 mg PO QHS #30 capsule 12/21/19 Unknown Rx Melatonin [Melatonin 5MG TAB] 5 mg PO QHS #30 tablet 12/21/19 Unknown Rx Metoprolol [Lopressor TAB] 12.5 mg PO Q8HR #45 tablet 12/21/19 Unknown Rx Pantoprazole [Protonix TAB] 40 mg PO QDAY #30 tablet 12/21/19 Unknown Rx Pravastatin [Pravachol] 20 mg PO QHS #30 tablet 12/21/19 Unknown Rx oxyCODONE [roxiCODONE] 5 mg PO Q8HR PRN #60 tablet 12/21/19 Unknown Rx Ciprofloxacin HCl [Ciprofloxacin 500 mg PO Q12HR #20 tab 05/19/20 Unknown Rx TAB] HYDROcodone/APAP 10-325 [[place] 1 each PO Q8HR PRN #12 tablet 05/19/20 Unknown Rx 10/325] metroNIDAZOLE [Flagyl] 500 mg PO Q12HR #20 tab 05/19/20 Unknown Rx Active Medications Vancomycin HCl (Vancomycin/Ns 1 Gm/250 Ml) 1 gm in 250 mls @ 167.007 mls/hr IV ONCE ONE; Protocol Stop: 05/20/20 11:59 - Physical exam General appearance: mild distress (Pelvic discomfort) Gastrointestinal: other (Pelvic discomfort, no peritoneal signs, pain only with deeper palpation) Extremities: normal temperature, normal color - Brief post op/procedure progress note Date of procedure: 05/20/20 Pre-op diagnosis: Pelvic fluid collection Post-op diagnosis: same Procedure: CT-guided drainage of the pelvic fluid collection with an 8 Latvian drain through a left transgluteal approach Anesthesia: local (With conscious sedation) Findings: 80 mL's of purulent fluid removed Surgeon: LIZ HDZ Estimated blood loss: minimal Specimen disposition: to lab Condition: stable - Hospital course Hospital course: Patient tolerated the procedure without issue. Patient was placed on antibiotics prior CT-guided drainage. Discussed flushing catheter with patient. Provided 10 mL syringes. Follow-up with Dr. Gao. - Disposition Condition at discharge: Stable Disposition: DC-01 TO HOME OR SELFCARE - Discharge Diagnoses (1) Abdominal fluid collection Status: Acute (2) Pelvic fluid collection Status: Acute Short Stay Discharge Plan Activity: advance as tolerated Weight Bearing Status: Weight Bear as Tolerated Diet: regular Wound: keep clean and dry, other (Keep the area clean and dry, do not get the area wet, can clean with alcohol, flush drain with 10 mL's of normal saline daily, connected to bag drainage with suction at all other times, follow-up with Dr. Gao for antibiotic optimization and drain evaluation.) Follow up with: ANKITA GAO MD [Primary Care Provider] - 7 Days
[2020-05-20 11:18] VITALS: BP 122/61
--- NOTE | 2020-05-20 11:25 | Cat Scan Report ---
EXAM: CT guided pelvic abscess left transgluteal drain placement CLINICAL INDICATION: Pelvic fluid collection with leukocytosis DATE: 05/20/2020 WHARF TALLY CLERK: LIZ HDZ MD MEDICATIONS: Conscious sedation using Versed and fentanyl was performed under guidance of radiologic nursing. Continuous cardiopulmonary monitoring was utilized. PROCEDURE: Following an explanation of the risks, benefits and alternatives; written informed consent was obtained. The patient was brought to the CT suite and placed in the prone position on the CT table. Metal Tile Setter CT was performed of the abdomen and pelvis. After determining the appropriate site, the skin was infiltrated with lidocaine and a finder needle was placed. Intermittent CT was performed until the desired position was identified. The 18 gauge trocar needle was inserted into the pelvic fluid collection through a left transgluteal approach . Aspiration was performed and sent to the lab for analysis. J wire was then advanced through the needle and into the collection. The needle was exchanged for multiple dilators that were used to serially dilate over the wire. A 8 Fr APD drain was advanced over the wire and metal stiffener. The metal stiffener and wire were removed. Final CT scanning was performed. The pigtail was secured and aspirated until no more material could be aspirated. Catheter was secured with 2-0 silk. Sterile bandage was applied. The patient tolerated the procedure well. There were no immediate postprocedural complications. FINDINGS: 1. Initial CT demonstrates pelvic fluid collection. There is a satisfactory window for CT drainage. 2. Intermittent CT demonstrates the 18 gauge needle was placed in the pelvic fluid collection through a left transgluteal approach. 3. Wire is coiled in the pelvic fluid collection. 4. Final CT documents placement of a 8 Fr drain in the pelvic fluid collection. 5. A total of 80 mL of greenish yellow purulent material was aspirated through the drain and initial needle. IMPRESSION: Successful CT guided 8 Nepali drain placement in a pelvic fluid collection through left transgluteal approach. The patient was provided with 10 mL normal saline syringe is for daily flushing. Patient was instructed to followup with his surgeon in 2 days to 4 days for antibiotic reevaluation. Culture of pelvic collection fluid was obtained.
== END 2020-05-20 12:30 | disposition home or self-care (01) ==
LOC: CATHLABREC 07:23
PROVIDERS: ATTEND Radiology Diagnostic Radiology
DX: R19.00 Intra-abdominal and pelvic swelling, mass and lump, unspecified site (principal); I10 Essential (primary) hypertension; I25.2 Old myocardial infarction; I25.10 Atherosclerotic heart disease of native coronary artery without angina pectoris; J44.9 Chronic obstructive pulmonary disease, unspecified; G47.30 Sleep apnea, unspecified; F32.9 Major depressive disorder, single episode, unspecified; E78.5 Hyperlipidemia, unspecified; E66.9 Obesity, unspecified; F17.210 Nicotine dependence, cigarettes, uncomplicated; F41.9 Anxiety disorder, unspecified; D64.9 Anemia, unspecified; Z98.890 Other specified postprocedural states; Z88.2 Allergy status to sulfonamides; Z88.0 Allergy status to penicillin; Z79.899 Other long term (current) drug therapy; Z68.31 Body mass index [BMI] 31.0-31.9, adult
CPT/HCPCS: 36415; 49406; 85027; 85610; 85730; 87116; C1769; J2250; J3010; J3370; 10160; 77012; 96365

== ENCOUNTER 2020-06-02 08:01 | Outpatient (CLI) | payer BC ==
[2020-06-02 08:31] LABS: Hemoglobin 14.5 gm/dl (11.8-15.2); Mean Corpuscular HGB Conc 34 % (32-34); Mean Corpuscular Volume 84 fl (84-94); Platelet Count 342 K/mm3 (140-440); Red Blood Count 5.09 M/mm3 (3.65-5.03); Red Cell Distribution Width 16.9 % (13.2-15.2)
[2020-06-02 08:51] LABS: Alanine Aminotransferase 18 units/L (7-56); BUN/Creatinine Ratio 18; Blood Urea Nitrogen 14 mg/dL (9-20); Calcium 9.5 mg/dL (8.4-10.2); Chol/HDL Ratio 3.41 %; HDL Cholesterol 43 mg/dL (40-59); Hemolysis Index 2; LDL Cholesterol,Direct 86 mg/dL (50-130)
--- NOTE | 2020-06-02 10:02 | Cat Scan Report ---
CT ABDOMEN AND PELVIS WITH CONTRAST INDICATION / CLINICAL INFORMATION: K65.1 Peritoneal abscess. TECHNIQUE: Axial CT images were obtained through the abdomen and pelvis after 100 cc Omnipaque 300 IV contrast a nd oral contrast. All CT scans at this location are performed using CT dose reduction for DAYDAY portillo of automated exposure control. COMPARISON: CT-guided pelvic drainage performed on 05/20/2020. CT abdomen and pelvis with contrast from 05/19/2020. FINDINGS: LOWER CHEST: No significant abnormality. LIVER: No significant abnormality. GALLBLADDER: No significant abnormality. BILE DUCTS: No significant abnormality. PANCREAS: No significant abnormality. SPLEEN: No significant abnormality. ADRENALS: No significant abnormality. RIGHT KIDNEY / URETER: No significant abnormality. LEFT KIDNEY / URETER: No significant abnormality. STOMACH / SMALL BOWEL: No significant abnormality. Stable positioning of the jejunostomy tube. COLON: Interval improvement of the previously seen inflammation along the sigmoid colon with resoluti on of the previously drained pericolonic abscess. The drainage catheter remains in good position. Sta ble left lower quadrant colostomy. No additional significant abnormality. APPENDIX: No significant abnormality. PERITONEUM: No free fluid. No free air. No fluid collection. LYMPH NODES: No significant adenopathy. AORTA / ARTERIES: Stable mild generalized atherosclerosis. No additional significant abnormality. IVC / VEINS: No significant abnormality. URINARY BLADDER: No significant abnormality. REPRODUCTIVE ORGANS: No significant abnormality. ADDITIONAL FINDINGS: None. SKELETAL SYSTEM: No acute abnormality or significant change. IMPRESSION: 1. Interval resolution of the previously drained pelvic abscess with improvement of the previously se en inflammation along the sigmoid colon. 2. No new acute abnormality of the abdomen or pelvis. Signer Name: Marcus Mckenzie MD Signed: 06/02/2020 9:57 AM Workstation Name: [id number]
== END 2020-06-02 08:02 | disposition home or self-care (01) ==
LOC: CT 08:01
PROVIDERS: ATTEND Surgery
DX: K65.1 Peritoneal abscess (principal); I70.0 Atherosclerosis of aorta; E78.5 Hyperlipidemia, unspecified; I10 Essential (primary) hypertension; E78.2 Mixed hyperlipidemia; Z93.3 Colostomy status
CPT/HCPCS: 36415; 74177; 80053; 80061; 83036; 84153; 84443; 85027; Q9967

== ENCOUNTER 2020-07-07 09:50 | Outpatient (CLI) | payer BC | END 2020-07-07 09:51 | disposition home or self-care (01) | LOC: WOUND 09:50 | PROVIDERS: ATTEND Surgery | DX: L89.151 Pressure ulcer of sacral region, stage 1 (principal); I10 Essential (primary) hypertension; I25.2 Old myocardial infarction; E44.0 Moderate protein-calorie malnutrition; K63.2 Fistula of intestine; J44.9 Chronic obstructive pulmonary disease, unspecified; E66.01 Morbid (severe) obesity due to excess calories; G47.30 Sleep apnea, unspecified; Z68.29 Body mass index [BMI] 29.0-29.9, adult | CPT/HCPCS: 99213; G0463 ==

== ENCOUNTER 2020-10-29 07:12 | Outpatient (CLI) | payer BC ==
[2020-10-29 08:33] LABS: Alanine Aminotransferase 25 units/L (7-56); Albumin 4.3 g/dL (3.9-5); BUN/Creatinine Ratio 20; Blood Urea Nitrogen 20 mg/dL (9-20); Calcium 9.9 mg/dL (8.4-10.2); Chol/HDL Ratio 5.21 %; HDL Cholesterol 32 mg/dL (40-59); Hemolysis Index 15; LDL Cholesterol,Direct 117 mg/dL (50-130)
== END 2020-10-29 07:13 | disposition home or self-care (01) ==
LOC: LAB 07:12
PROVIDERS: ATTEND Family Medicine
DX: Z12.5 Encounter for screening for malignant neoplasm of prostate (principal); I10 Essential (primary) hypertension; E78.2 Mixed hyperlipidemia
CPT/HCPCS: 36415; 80053; 80061; 84153

== ENCOUNTER 2021-01-20 07:42 | Outpatient (CLI) | payer BC ==
--- NOTE | 2021-01-20 09:31 | Cat Scan Report ---
CT ABDOMEN AND PELVIS WITHOUT CONTRAST HISTORY: Enterocutaneous fistula. COMPARISON: 06/02/2020 TECHNIQUE: Helical CT images of the abdomen and pelvis were obtained without administration of intrav enous contrast. Sagittal and coronal reformatted images were reviewed. All CT scans at this location are performed using CT dose reduction for ALARA by means of automated exposure control. FINDINGS: Abdomen/pelvis: A percutaneous catheter in the umbilical region has been removed since the previous exam. This terminated insmall bowel loops in the left abdomen and presumably represented an enterocut aneous fistula. Today's exam demonstrates oral contrast in the stomach and proximal half of the small bowel loops. No obvious enterocutaneous fistula containing oral contrast is identified. Small bowel loops appear matted in the anterior abdomen near the left ostomy site. Small umbilical hernia contain ing fat and small right paraumbilical hernia containing a short segment of small bowel are unchanged. There is no evidence for obstruction or acute inflammation. Normal appendix. The unenhanced CT appearance of the liver, biliary system, pancreas, spleen, kidneys and adrenal glan ds remain unremarkable. The bladder, distal ureters and prostate gland are within normal limits. The aorta is normal caliber. No evidence for adenopathy, free fluid or free air. Lungs/bones: The visualized lung bases are clear. Normal heart size. Advanced degenerative changes a t L4-5 and L5-S1 are stable. IMPRESSION: No enterocutaneous fistula is detected on today's exam. See above. Small umbilical hernia containing fat and right paraumbilical hernia containing a loop of small bowel , unchanged. No acute process is appreciated in the abdomen or pelvis. Signer Name: Skinny Jacinto Jr, MD Signed: 01/20/2021 9:27 AM Workstation Name: [id number]
== END 2021-01-20 07:43 | disposition home or self-care (01) ==
LOC: CT 07:42
PROVIDERS: ATTEND Surgery
DX: K42.9 Umbilical hernia without obstruction or gangrene (principal); K63.2 Fistula of intestine; K43.9 Ventral hernia without obstruction or gangrene; M47.817 Spondylosis without myelopathy or radiculopathy, lumbosacral region; Z93.3 Colostomy status
CPT/HCPCS: 74176

== ENCOUNTER 2021-03-10 07:00 | Observation (INO) | payer BC ==
[2021-03-10 08:06] LABS: Basophils # (Auto) 0.1 K/mm3 (0.0-0.1); Basophils % (Auto) 0.6 % (0.0-1.8); Eosinophils # (Auto) 0.2 K/mm3 (0.0-0.4); Eosinophils % (Auto) 1.6 % (0.0-4.3); Hematocrit 43.9 % (35.5-45.6); Hemoglobin 15.2 gm/dl (11.8-15.2); Lymphocytes # (Auto) 2.4 K/mm3 (1.2-5.4); Lymphocytes % (Auto) 23.6 % (13.4-35.0); Mean Corpuscular HGB Conc 35 % (32-34); Mean Corpuscular Volume 88 fl (84-94); Monocytes # (Auto) 0.7 K/mm3 (0.0-0.8); Monocytes % (Auto) 7.3 % (0.0-7.3); Platelet Count 221 K/mm3 (140-440); Red Cell Distribution Width 14.4 % (13.2-15.2)
[2021-03-10 08:17] LABS: BUN/Creatinine Ratio 19; Blood Urea Nitrogen 17 mg/dL (9-20); Calcium 9.1 mg/dL (8.4-10.2); Hemolysis Index 8; INR 0.97 (0.87-1.13)
[2021-03-10 08:19] LABS: Partial Thromboplastin Time 26.8 Sec. (24.2-36.6)
[2021-03-10] MEDS ORDERED: VERAPAMIL 5 MG/2 ML INJ ONE (08:38)
[2021-03-10] MEDS ORDERED: HEPARIN/NS 5000 UNIT/500ML 1,000 ML IR ONE (08:38)
[2021-03-10] MEDS ORDERED: LIDOCAINE (2%) 20 MG/1 ML VIAL 20 ML MDV INFILTRATI ONE (08:38)
[2021-03-10] MEDS ORDERED: NITROGLYCERIN SYRINGE 3 ML ONE (08:39)
[2021-03-10] MEDS ORDERED: fentaNYL 100 MCG/2 ML INJ ONE (09:05)
[2021-03-10] MEDS ORDERED: MIDAZOLAM 2 MG/2 ML INJ ONE (09:05)
[2021-03-10] MEDS: SODIUM CHLORIDE 0.9% 500 ML 500 ML IV SCH ×2 (09:21→09:50)
[2021-03-10] MEDS: HEPARIN 10,000 UNITS/10 ML VIAL ONE ×2 (09:51→09:55)
[2021-03-10] MEDS ORDERED: HEPARIN 10,000 UNITS/10 ML VIAL ONE (09:52)
[2021-03-10] MEDS ORDERED: CLOPIDOGREL 75 MG TAB ONE (10:10)
[2021-03-10] MEDS ORDERED: ALUM-MAG HYDROXIDE-SIMETHICONE 200-200-20MG/5ML ORAL LIQD 30 ML ONE (10:10)
[2021-03-10] MEDS ORDERED: SODIUM CHLORIDE 0.9% 1000 ML 1,000 ML IV SCH (10:30)
[2021-03-10] MEDS ORDERED: traMADol 50 MG TAB PO PRN (11:00)
[2021-03-10] MEDS ORDERED: ONDANSETRON 4 MG/2 ML INJ IV PRN (11:00)
--- NOTE | 2021-03-10 11:05 | Event Note ---
Date: 03/10/21 Patient presented for outpatient second vessel PCI of the RCA. PCI completed successfully via the R radial, no complications. See dictated report for details. Admit overnight for 23 hr obs. Discharge tomorrow on GDMT/DAPT.
[2021-03-10] MEDS: METOPROLOL TARTRATE 50 MG TAB PO SCH ×2 (15:28→22:00)
[2021-03-10] MEDS: LISINOPRIL 5 MG TAB PO SCH (15:29)
[2021-03-10] MEDS ORDERED: ZOLPIDEM 5 MG TAB PO PRN (22:00)
[2021-03-11 06:08] LABS: Basophils # (Auto) 0.1 K/mm3 (0.0-0.1); Basophils % (Auto) 0.6 % (0.0-1.8); Eosinophils # (Auto) 0.2 K/mm3 (0.0-0.4); Eosinophils % (Auto) 1.7 % (0.0-4.3); Hematocrit 44.9 % (35.5-45.6); Hemoglobin 15.2 gm/dl (11.8-15.2); Lymphocytes # (Auto) 2.4 K/mm3 (1.2-5.4); Lymphocytes % (Auto) 23.5 % (13.4-35.0); Mean Corpuscular HGB Conc 34 % (32-34); Mean Corpuscular Volume 89 fl (84-94); Monocytes # (Auto) 0.6 K/mm3 (0.0-0.8); Monocytes % (Auto) 6.2 % (0.0-7.3); Platelet Count 221 K/mm3 (140-440); Red Blood Count 5.06 M/mm3 (3.65-5.03); Red Cell Distribution Width 14.5 % (13.2-15.2)
[2021-03-11 06:30] LABS: BUN/Creatinine Ratio 16; Blood Urea Nitrogen 14 mg/dL (9-20); Calcium 8.8 mg/dL (8.4-10.2); Hemolysis Index 5
--- NOTE | 2021-03-11 08:16 | XRay Report ---
CHEST 1 VIEW INDICATION: post pci. COMPARISON: 02/25/2021 FINDINGS: Support devices: None. Heart: Within normal limits. Lungs/Pleura: No acute air space or interstitial disease. Moderate emphysematous changes are suspecte d. No pneumothorax. Additional findings: None. IMPRESSION: No acute findings. Moderate emphysematous changes. Signer Name: Skinny Jacinto Jr, MD Signed: 03/11/2021 8:11 AM Workstation Name: [id number]
[2021-03-11] MEDS ORDERED: CLOPIDOGREL 75 MG TAB PO SCH (10:00)
[2021-03-11] MEDS ORDERED: ASPIRIN EC 81 MG TAB PO SCH (10:00)
[2021-03-11 10:38] VITALS: BP 137/78
[2021-03-11] MEDS: METOPROLOL TARTRATE 50 MG TAB PO SCH (10:38)
[2021-03-11] MEDS: LISINOPRIL 5 MG TAB PO SCH (10:39)
--- NOTE | 2021-03-11 10:42 | Short Stay Summary ---
Short Stay Documentation Date of service: 03/11/21 - History H&P: obtained from office - Allergies and Medications Current Medications: Allergies Sulfa (Sulfonamide Antibiotics) Allergy (Severe, Verified 03/22/16 18:34) Rash oxytetracycline [From Terramycin] Allergy (Verified 03/22/16 10:32) Unknown Penicillins Allergy (Verified 05/19/20 13:02) Hives Home Medications Medication Instructions Recorded Confirmed Last Taken Type Ipratropium/Albuterol Sulfate 1 ampul IH Q6HRT #30 ampul.neb 08/17/18 03/10/21 03/09/21 Rx [DUONEB *Not for PRN Use*] Symbicort 160-4.5 Mcg Inhaler 1 puff INHALATION BID #30 08/17/18 03/10/21 03/09/21 Rx Clopidogrel [Plavix] 75 mg PO DAILY 05/20/20 03/10/21 03/10/21 History LORazepam 0.5 mg PO ONCE 02/23/21 03/10/21 03/10/21 History Lisinopril 10 mg PO ONCE 02/23/21 03/10/21 03/09/21 History traMADoL 50 mg PO PRN 02/23/21 03/10/21 03/09/21 History Aspirin EC [Halfprin EC] 81 mg PO QDAY #30 tablet 02/25/21 03/10/21 03/10/21 Rx AtorvaSTATin [Lipitor] 40 mg PO QHS #30 tab 02/25/21 03/10/21 03/09/21 Rx ISOSORBIDE MONOnitrate [Imdur ER] 30 mg PO QDAY #30 tablet 02/25/21 03/10/21 03/09/21 Rx Metoprolol [Lopressor TAB] 50 mg PO BID #30 tablet 02/25/21 03/10/21 03/09/21 Rx Active Medications Aspirin (Aspirin Ec 81 Mg Tab) 81 mg PO QDAY [facility] Atorvastatin Calcium (Atorvastatin 40 Mg Tab) 40 mg PO QHS [facility] Last Admin: 03/10/21 22:00 Dose: 40 mg Documented by: Clopidogrel Bisulfate (Clopidogrel 75 Mg Tab) 75 mg PO DAILY [facility] Isosorbide Mononitrate (Isosorbide Mononitrate Er 30 Mg Tab) 30 mg PO QDAY [facility] Last Admin: 03/10/21 15:28 Dose: Not Given Documented by: Lisinopril (Lisinopril 5 Mg Tab) 5 mg PO QDAY [facility] Last Admin: 03/10/21 15:29 Dose: Not Given Documented by: Metoprolol Tartrate (Metoprolol Tartrate 50 Mg Tab) 50 mg PO BID [facility] Last Admin: 03/10/21 22:00 Dose: 50 mg Documented by: Ondansetron HCl (Ondansetron 4 Mg/2 Ml Inj) 4 mg IV Q8H PRN PRN Reason: N/V unrelieved by Reglan Tramadol HCl (Tramadol 50 Mg Tab) 50 mg PO Q4H PRN PRN Reason: Pain, Mild (1-3) Zolpidem Tartrate (Zolpidem 5 Mg Tab) 5 mg PO QHS PRN PRN Reason: Sleep - Physical exam General appearance: no acute distress HEENT: PERRLA Lungs: Clear to auscultation Heart: Regular rate, No murmurs - Brief post op/procedure progress note Procedure: Patient presented for outpatient second vessel PCI of the RCA. PCI completed successfully via the R radial, no complications. Condition: stable - Hospital course Hospital course: Stable overnight observation. - Disposition Condition at discharge: Good Disposition: DC-01 TO HOME OR SELFCARE Short Stay Discharge Plan Activity: advance as tolerated Weight Bearing Status: Full Weight Bearing Diet: low fat, low cholesterol, low salt Wound: open to air, keep clean and dry Special Instructions: smoking cessation Additional Instructions: NO HEAVY LIFTING MORE THAN 5 POUNDS, INCREASE ACTIVITY SLOWLY, NOTIFY DOCTOR OF BLEEDING, HEMATOMA ,OR NUMBNESS OR TINGLING TO RIGHT ARM OR FINGERS, TAKE PLAVIX PER DOCTORS ORDERS. Follow up with: DREW FREEMAN MD [Primary Care Provider] - 7 Days CHIRAG HAYES MD [Staff Physician] - 7 Days
--- NOTE | 2021-03-12 10:41 | Electrocardiograph Report ---
[facility] Test Date: 2021-03-10 Test Time: 08:22:26 Pat Name: REBEKAH CAMACHO Department: Room: A489 Gender: M Loop Tacker: KHOI : 1965 Requested By: CHIO WIGGINS Order Number: [id number] Reading MD: Chio Wiggins Measurements Intervals [place] Rate: 69 P: 70 GA: 172 QRS: 30 QRSD: 101 T: 69 QT: 396 QTc: 426 Interpretive Statements Sinus rhythm Compared to ECG 02/25/2021 07:24:57 Electronically Signed On 03-12-2021 10:40:45 EDT by Chio Wiggins
--- NOTE | 2021-03-12 10:47 | Electrocardiograph Report ---
[facility] Test Date: 2021-03-11 Test Time: 07:44:15 Pat Name: REBEKAH CAMACHO Department: Room: A489 1 Gender: M Polisher And Sander: KHOI : 1965 Requested By: CHIO WIGGINS Order Number: [id number] Reading MD: Chio Wiggins Measurements Intervals [place] Rate: 66 P: 62 NE: 185 QRS: -5 QRSD: 99 T: 68 QT: 419 QTc: 438 Interpretive Statements Sinus rhythm Compared to ECG 03/10/2021 11:19:49 No significant changes Electronically Signed On 03-12-2021 10:47:18 EDT by Chio Wiggins
--- NOTE | 2021-03-12 14:19 | Cardiac Catherization Report ---
DATE OF SERVICE: 03/10/2021 CORONARY ANGIOPLASTY REPORT REASON FOR OPERATION: The patient is a 55-year-old male with multivessel coronary artery disease. A week ago, he underwent coronary intervention to the severe stenosis of the distal LAD for unstable angina and acute coronary syndrome. He returns today to the cardiac catheterization laboratory for second vessel coronary intervention to the mid right coronary artery. I was present for the entire procedure and supervised the moderate sedation protocol. DESCRIPTION OF PROCEDURE: The patient was prepped and draped in a sterile fashion after informed consent. The right radial catheterization site was prepped and draped after negative Manoj's test. The right radial artery was entered using Seldinger technique followed by placement of a 6-American hydrophilic sheath. Routine radial cocktail was administered via the sheath. We selected #1 right Amplatz guiding catheter and advanced to the right coronary ostium. Pre-intervention angiograms were taken. Angiography of the right coronary artery revealed a long area of diffuse moderately severe disease of the mid vessel with up to 80% luminal stenosis. A 0.014 inch Client Success Manager 50 guidewire was then directed into the vessel, across the lesion in segment. Following wire placement, we predilated the stenosis using a 2.5 mm balloon catheter. Serial, 2.75-3.0 mm drug-eluting stents were then deployed, covering the entire lesion in segment of the mid vessel. The stents were deployed to optimal pressures. Following stenting, there was an excellent angiographic result, zero residual stenosis and ESDRAS 3 flow restored in the vessel. Procedure was well tolerated by the patient. There were no complications. CONCLUSIONS: Successful angioplasty and stenting of the mid right coronary artery, excellent angiographic result following deployment of 2.75-3.0 mm drug-eluting stents. TID: [id number] RECEIPT: [id number] IA/ALL
== END 2021-03-11 11:10 | disposition home or self-care (01) ==
LOC: CATHLABREC 07:00 → 4A 10:23
PROVIDERS: ADMIT Internal Medicine Cardiovascular Disease; ATTEND Internal Medicine Cardiovascular Disease
DX: I25.10 Atherosclerotic heart disease of native coronary artery without angina pectoris (principal); I24.9 Acute ischemic heart disease, unspecified; Z98.61 Coronary angioplasty status
CPT/HCPCS: 36415; 71045; 80048; 84484; 85025; 85610; 85730; 87641; 93005; 96360; 96361; A9270; C1725; C1769; C1874; C1887; C1894; C9600; G0378; J1644; J2250; J3010; J7030; J7040; 92928; Q9967

== ENCOUNTER 2021-04-11 09:18 | Emergency (ER) | payer BC ==
[2021-04-11 10:12] VITALS: BP 129/78
[2021-04-11 13:02] LABS: Basophils # (Auto) 0.1 K/mm3 (0.0-0.1); Basophils % (Auto) 0.9 % (0.0-1.8); Eosinophils # (Auto) 0.2 K/mm3 (0.0-0.4); Eosinophils % (Auto) 1.3 % (0.0-4.3); Hematocrit 45.4 % (35.5-45.6); Hemoglobin 15.9 gm/dl (11.8-15.2); Lymphocytes # (Auto) 2.9 K/mm3 (1.2-5.4); Lymphocytes % (Auto) 25.4 % (13.4-35.0); Mean Corpuscular HGB Conc 35 % (32-34); Mean Corpuscular Volume 88 fl (84-94); Monocytes # (Auto) 0.8 K/mm3 (0.0-0.8); Monocytes % (Auto) 7.1 % (0.0-7.3); Platelet Count 252 K/mm3 (140-440); Red Blood Count 5.17 M/mm3 (3.65-5.03); Red Cell Distribution Width 14.4 % (13.2-15.2)
[2021-04-11 13:18] LABS: Alanine Aminotransferase 22 units/L (7-56); Albumin 4.3 g/dL (3.9-5); BUN/Creatinine Ratio 17; Blood Urea Nitrogen 15 mg/dL (9-20); Calcium 9.3 mg/dL (8.4-10.2); Hemolysis Index 101
[2021-04-11] MEDS ORDERED: SODIUM CHLORIDE 0.9% 1000 ML 1,000 ML IV ONE (13:48)
[2021-04-11] MEDS ORDERED: MECLIZINE 25 MG TAB PO ONE (13:48)
[2021-04-11] MEDS ORDERED: ONDANSETRON 4 MG/2 ML INJ IV ONE (13:48)
--- NOTE | 2021-04-11 16:16 | Emergency Department Report ---
ED Dizziness HPI - General Chief Complaint: Dizziness Stated Complaint: DIZZY/HEADACHE/VOMITTING/UNSTABLE BALANCE Time Seen by Provider: 04/11/21 13:43 Source: patient Mode of arrival: Ambulatory Limitations: No Limitations - History of Present Illness Initial Comments: Patient is a 56-year-old male who is presenting with dizziness. He states is a spinning sensation mostly when he goes from a lying to a sitting or standing position. States feels as though the room is spinning. He gets very nauseous when this occurs and has vomited numerous times. Patient states his left ear has had a ringing sensation as well. He denies any fevers chills cough cold congestion. - Related Data Home Medications Medication Instructions Recorded Confirmed Last Taken Clopidogrel [Plavix] 75 mg PO DAILY 05/20/20 03/10/21 03/10/21 LORazepam 0.5 mg PO ONCE 02/23/21 03/10/21 03/10/21 Lisinopril 10 mg PO ONCE 02/23/21 03/10/21 03/09/21 traMADoL 50 mg PO PRN 02/23/21 03/10/21 03/09/21 Previous Rx's Medication Instructions Recorded Last Taken Type Ipratropium/Albuterol Sulfate 1 ampul IH Q6HRT #30 ampul.neb 08/17/18 03/09/21 Rx [DUONEB *Not for PRN Use*] Symbicort 160-4.5 Mcg Inhaler 1 puff INHALATION BID #30 08/17/18 03/09/21 Rx Aspirin EC [Halfprin EC] 81 mg PO QDAY #30 tablet 02/25/21 03/10/21 Rx AtorvaSTATin [Lipitor] 40 mg PO QHS #30 tab 02/25/21 03/09/21 Rx ISOSORBIDE MONOnitrate [Imdur ER] 30 mg PO QDAY #30 tablet 02/25/21 03/09/21 Rx Metoprolol [Lopressor TAB] 50 mg PO BID #30 tablet 02/25/21 03/09/21 Rx Meclizine [Antivert] 25 mg PO TID PRN #14 tablet 04/11/21 Unknown Rx Ondansetron [Zofran Odt] 4 mg PO Q8HR #10 tab.rapdis 04/11/21 Unknown Rx Allergies Allergy/AdvReac Type Severity Reaction Status Date / Time Sulfa (Sulfonamide Allergy Severe Rash Verified 04/11/21 10:13 Antibiotics) oxytetracycline Allergy Unknown Verified 04/11/21 10:13 [From Terramycin] Penicillins Allergy Hives Verified 04/11/21 10:13 ED Review of Systems ROS: Stated complaint: DIZZY/HEADACHE/VOMITTING/UNSTABLE BALANCE Other details as noted in HPI Comment: All other systems reviewed and negative ED Past Medical Hx - Past Medical History Hx Hypertension: Yes Hx CVA: No Hx Heart Attack/AMI: Yes (2017 X1 stent) Hx Congestive Heart Failure: No Hx Diabetes: No Hx Deep Vein Thrombosis: No Hx Liver Disease: No Hx Renal Disease: Yes (renal 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 collapsed right lung: chest tube placed/ BLEEDING ULCER/ COLON REACTION - Social History Smoking Status: Current Every Day Smoker Substance Use Type: None - Medications Home Medications: Home Medications Medication Instructions Recorded Confirmed Last Taken Type Ipratropium/Albuterol Sulfate 1 ampul IH Q6HRT #30 ampul.neb 08/17/18 03/10/21 03/09/21 Rx [DUONEB *Not for PRN Use*] Symbicort 160-4.5 Mcg Inhaler 1 puff INHALATION BID #30 08/17/18 03/10/21 03/09/21 Rx Clopidogrel [Plavix] 75 mg PO DAILY 05/20/20 03/10/21 03/10/21 History LORazepam 0.5 mg PO ONCE 02/23/21 03/10/21 03/10/21 History Lisinopril 10 mg PO ONCE 02/23/21 03/10/21 03/09/21 History traMADoL 50 mg PO PRN 02/23/21 03/10/21 03/09/21 History Aspirin EC [Halfprin EC] 81 mg PO QDAY #30 tablet 02/25/21 03/10/21 03/10/21 Rx AtorvaSTATin [Lipitor] 40 mg PO QHS #30 tab 02/25/21 03/10/21 03/09/21 Rx ISOSORBIDE MONOnitrate [Imdur ER] 30 mg PO QDAY #30 tablet 02/25/21 03/10/21 Rx Metoprolol [Lopressor TAB] 50 mg PO BID #30 tablet 02/25/21 03/10/21 03/09/21 Rx Meclizine [Antivert] 25 mg PO TID PRN #14 tablet 04/11/21 Unknown Rx Ondansetron [Zofran Odt] 4 mg PO Q8HR #10 tab.rapdis 04/11/21 Unknown Rx ED Physical Exam - General Limitations: No Limitations General appearance: alert, in no apparent distress - Head Head exam: Present: atraumatic, normocephalic - Eye Eye exam: Present: normal appearance - ENT ENT exam: Present: mucous membranes moist - Neck Neck exam: Present: normal inspection - Respiratory Respiratory exam: Present: normal lung sounds bilaterally. Absent: respiratory distress, wheezes, rales, rhonchi - Cardiovascular Cardiovascular Exam: Present: regular rate, normal rhythm, normal heart sounds. Absent: systolic murmur, diastolic murmur, rubs, gallop - GI/Abdominal GI/Abdominal exam: Present: soft, normal bowel sounds. Absent: distended, tenderness, guarding - Rectal Rectal exam: Present: deferred - Extremities Exam Extremities exam: Present: normal inspection - Back Exam Back exam: Present: normal inspection - Neurological Exam Neurological exam: Present: alert, oriented X3 - Psychiatric Psychiatric exam: Present: normal affect, normal mood - Skin Skin exam: Present: warm, dry, intact, normal color. Absent: rash ED Course Vital Signs 04/11/21 04/11/21 10:11 13:42 Temperature 97.9 F Pulse Rate 84 Respiratory 16 20 Rate Blood Pressure 129/78 [Left] O2 Sat by Pulse 100 Oximetry ED Medical Decision Making - Lab Data Result diagrams: 04/11/21 12:42 04/11/21 12:42 Lab Results 04/11/21 04/11/21 Range/Units 12:42 12:42 WBC 11.5 H (4.5-11.0) K/mm3 RBC 5.17 H (3.65-5.03) M/mm3 Hgb 15.9 H (11.8-15.2) gm/dl Hct 45.4 (35.5-45.6) % MCV 88 (84-94) fl MCH 31 (28-32) pg MCHC 35 H (32-34) % RDW 14.4 (13.2-15.2) % Plt Count 252 (140-440) K/mm3 Lymph % (Auto) 25.4 (13.4-35.0) % [place] % (Auto) 7.1 (0.0-7.3) % Eos % (Auto) 1.3 (0.0-4.3) % Baso % (Auto) 0.9 (0.0-1.8) % Lymph # (Auto) 2.9 (1.2-5.4) K/mm3 [place] # (Auto) 0.8 (0.0-0.8) K/mm3 Eos # (Auto) 0.2 (0.0-0.4) K/mm3 Baso # (Auto) 0.1 (0.0-0.1) K/mm3 Seg Neutrophils % 65.3 (40.0-70.0) % Seg Neutrophils # 7.5 (1.8-7.7) K/mm3 Sodium 135 L (137-145) mmol/L Potassium 4.8 (3.6-5.0) mmol/L Chloride 98.2 (98-107) mmol/L Carbon Dioxide 26 (22-30) mmol/L Anion Gap 16 mmol/L BUN 15 (9-20) mg/dL Creatinine 0.9 (0.8-1.3) mg/dL Estimated GFR > 60 ml/min BUN/Creatinine Ratio 17 % Glucose 68 L (75-100) mg/dL Calcium 9.3 (8.4-10.2) mg/dL Total Bilirubin 0.50 (0.1-1.2) mg/dL AST 19 (5-40) units/L ALT 22 (7-56) units/L Alkaline Phosphatase 107 (35-129) units/L Troponin T < 0.010 (0.00-0.029) ng/mL Total Protein 7.7 (6.3-8.2) g/dL Albumin 4.3 (3.9-5) g/dL Albumin/Globulin Ratio 1.3 % - Medical Decision Making Patient given IV fluids Zofran and meclizine is feeling some improvement. Patient symptoms are consistent with vertigo. Has no focal neurological deficits. Patient discharged home. Critical care attestation.: If time is entered above; I have spent that time in minutes in the direct care of this critically ill patient, excluding procedure time. ED Disposition Clinical Impression: Vertigo Disposition: DC-01 TO HOME OR SELFCARE Is pt being admited?: No Does the pt Need Aspirin: No Condition: Stable Prescriptions: Meclizine [Antivert] 25 mg PO TID PRN #14 tablet PRN Reason: Vertigo Ondansetron [Zofran Odt] 4 mg PO Q8HR #10 tab.rapdis Referrals: PRIMARY CARE, [Primary Care Provider] - 3-5 Days Time of Disposition: 16:15
--- NOTE | 2021-04-13 21:33 | Electrocardiograph Report ---
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
== END 2021-04-11 16:42 | disposition home or self-care (01) ==
LOC: ED 09:18
DX: R42 Dizziness and giddiness (principal); I10 Essential (primary) hypertension; J44.9 Chronic obstructive pulmonary disease, unspecified; E78.00 Pure hypercholesterolemia, unspecified; F17.200 Nicotine dependence, unspecified, uncomplicated; Z88.2 Allergy status to sulfonamides; Z79.899 Other long term (current) drug therapy; Z79.82 Long term (current) use of aspirin; Z88.0 Allergy status to penicillin; Z88.8 Allergy status to other drugs, medicaments and biological substances
CPT/HCPCS: 36415; 80053; 84484; 85025; 93005; 96361; 96374; 99283; J2405; J7030

== ENCOUNTER 2021-05-28 08:02 | Outpatient (CLI) | payer BC ==
[2021-05-28 08:48] LABS: Blood Urea Nitrogen 12 mg/dL (9-20)
--- NOTE | 2021-05-28 10:23 | Cat Scan Report ---
CT angio head, CT angio neck HISTORY: NEW DAILY PERSISTENT HEADACHE 100 ml omni 350 COMPARISON: None. TECHNIQUE: CTA of the neck and head is performed after IV contrast. 3-D/MIP reformats were postproces sed. Percentage stenosis is determined by direct quantitative measurements of diseased internal [place] artery diameter compared with normal distal internal carotid artery reference segments or by crit eria similar to NASCET where applicable. All CT scans at this location are performed using CT dose re duction for ALARA by means of automated exposure control. FINDINGS: CTA NECK: Aortic arch: No significant abnormality. Cervical vertebral arteries: No occlusion or hemodynamically significant stenosis. Common Carotid arteries: No occlusion or hemodynamically significant stenosis. Internal carotid arteries: Mild atherosclerosis in the proximal internal carotid arteries. No occlusi on or hemodynamically significant stenosis. Additional findings: Moderate emphysema of the visualized lung apices. Postoperative changes from C5 to C7 ACDF. CTA HEAD: Intracranial internal carotid arteries: Minimal atherosclerosis. No occlusion or significant stenosis . Anterior cerebral arteries: No occlusion or significant stenosis. Middle cerebral arteries: No occlusion or significant stenosis. Intracranial vertebral arteries: No occlusion or significant stenosis. Basilar artery: No occlusion or significant stenosis. Posterior cerebral arteries: No occlusion or significant stenosis. No aneurysm. Additional findings: None. IMPRESSION: 1.CT HEAD: No significant abnormality. 2. CTA NECK: No occlusion or significant stenosis of the carotid or vertebral arteries. 3. CTA HEAD: No occlusion or significant stenosis of the major intracranial vasculature. Signer Name: Esau Phillip MD Signed: 05/28/2021 10:19 AM Workstation Name: [id number]
== END 2021-05-28 08:03 | disposition home or self-care (01) ==
LOC: CT 08:02
PROVIDERS: ATTEND Internal Medicine Cardiovascular Disease
DX: I67.2 Cerebral atherosclerosis (principal); G44.52 New daily persistent headache (NDPH)
CPT/HCPCS: 36415; 70496; 70498; 82565; 84520; Q9967

== ENCOUNTER 2021-07-14 07:06 | Outpatient (CLI) | payer BC ==
[2021-07-14 07:56] LABS: Blood Urea Nitrogen 13 mg/dL (9-20)
--- NOTE | 2021-07-14 09:20 | Cat Scan Report ---
CT ABDOMEN AND PELVIS WITH CONTRAST HISTORY: Enterocutaneous fistula. COMPARISON: 05/03/2020. 01/20/2021 TECHNIQUE: Helical CT images of the abdomen and pelvis were obtained following administration of intr avenous contrast. Sagittal and coronal reformatted images were reviewed. All CT scans at this [facility] are performed using CT dose reduction for ALARA by means of automated exposure control. CONTRAST: 100 cc Omnipaque 300 intravenously. Oral contrast was also administered. FINDINGS: Abdomen/pelvis: There is oral contrast in the stomach and most of the small bowel loops. No acute in flammation or obstruction is appreciated. Left abdominal ostomy with small parastomal hernia is uncha nged. Small right paraumbilical hernia containing a short segment of small bowel is also seen which i s unchanged. No enterocutaneous fistula is detected in the umbilical region. No evidence for free flu id, free air or fluid collection. The liver, biliary system, pancreas, spleen, adrenal glands, right kidney and bladder remain unremark able. Mild atrophy and cortical scarring in the left kidney is unchanged. The vascular structures are patent. No adenopathy. Lungs/bones: The lung bases are clear. Moderate lumbar spondylosis is stable. No suspicious bony les ion. IMPRESSION: No enterocutaneous fistula is detected on CT with IV and oral contrast. No significant interval change is appreciated since 01/20/2021. Signer Name: Skinny Jacinto Jr, MD Signed: 07/14/2021 9:15 AM Workstation Name: [id number]
== END 2021-07-14 07:07 | disposition home or self-care (01) ==
LOC: CT 07:06
PROVIDERS: ATTEND Surgery
DX: K63.2 Fistula of intestine (principal); K43.9 Ventral hernia without obstruction or gangrene; M47.816 Spondylosis without myelopathy or radiculopathy, lumbar region; Z93.3 Colostomy status
CPT/HCPCS: 36415; 74177; 82565; 84520; Q9967